=== PATIENT | male | born 1955 | race Asian ===

== ENCOUNTER 2016-05-23 13:38 | Inpatient (IN) | payer MEDICARE, OTHER ==
[2016-05-23] VITALS (14 sets, daily range): BP systolic 151–188; BP diastolic 70–80; PULSE 69–80; RESP 18–19; Ht 172.7 cm; Wt 65.8 kg
[~2016-05-23] VITALS: Ht 172.7 cm; Wt 65.8 kg
[~2016-05-23 13:38] MED LIST: AMLO-145 PO; ASPI81TA3 PO; ATOR10TA65 PO; FURO40TA4 PO; HYDR-3498 PO; INSU100I15 SQ; LEVO500T72 PO; LISI20TA11 PO; METO-448 PO; NIT4 SL; SEVE800T7 PO; SITA25TA3 PO; TICA90TA PO
--- NOTE | 2016-05-23 15:37 | HP ---
Date/Time of Note Date/Time of Note DATE: 05/23/16 TIME: 15:34 Assessment/Plan VTE Prophylaxis VTE Prophylaxis Intervention: heparin Assessment/Plan Chief Complaint/Hosp Course 1) CHF - will need HD 2) diabetes mellitus - monitor blood sugar 3) CAD - no evidence of ACS at this time - consult cardiology Problems: HPI/ROS Admit Date/Time Admit Date/Time May 23, 2016 at 14:43 Hx of Present Illness Patient with coronary artery disease, end stage renal disease, diabetes mellitus , hypertension is a transfer from [facility] for shortness of breath. Patient has had previous episodes of the same problem. PMH/Family/Social Past Medical History Medical History: congestive heart failure, coronary artery disease, diabetes, hypertension Past Surgical History Past Surgical Hx: no surgical history Social History Alcohol Use: none Smoking Status: Never smoker Exam/Review of Systems Vital Signs Vitals Vital Signs Date Time Temp Pulse Resp B/P Pulse Ox O2 Delivery O2 Flow Rate FiO2 05/23/16 14:50 Nasal Cannula 2.0 Exam Head: atraumatic, normocephalic Respiratory: diminished breath sounds Cardiovascular: regular rate and rhythm Gastrointestinal: non-tender, soft Extremities: normal pulses HELEN SHARP May 23, 2016 15:37
[2016-05-23] MEDS ORDERED: NACL 0.9% 3 ML SYG IV SCH (16:00)
[2016-05-23] MEDS ORDERED: morphine 2 MG INJ IV PRN (16:00)
[2016-05-23] MEDS ORDERED: DEXTROSE 50% 50 ML SYRINGE IV PRN ×2 (16:00)
[2016-05-23] MEDS ORDERED: ONDANSETRON 4 MG INJ IV PRN (16:00)
[2016-05-23] MEDS ORDERED: GLUCOSE GEL 15 GRAM TUBE BUCCAL PRN (16:00)
[2016-05-23] MEDS ORDERED: HYPOGLYCEMIA PROTOCOL when Glucose is <70 mg/dL or symptomatic <90 mg/dL. XX ONE (16:00)
[2016-05-23] MEDS ORDERED: Discontinue Glyburide, Glipizide, and/or Glimepiride prior to starting Insulin XX ONE (16:00)
[2016-05-23] MEDS ORDERED: HYDROCODONE/APAP (5/325) TAB PO PRN (16:00)
[2016-05-23] MEDS ORDERED: GLUCAGON 1 MG INJ IM PRN (16:00)
[2016-05-23] MEDS ORDERED: GLUCOSE GEL 15 GRAM TUBE PO PRN ×2 (16:00)
[2016-05-23] MEDS ORDERED: NITROGLYCERIN (SL) 0.4 MG TAB SL PRN (16:00)
--- NOTE | 2016-05-23 16:09 | QN ---
Documentation Comment [id number] renal consult PAOLA MOODY MD May 23, 2016 16:09
--- NOTE | 2016-05-23 17:06 | CONS ---
DATE OF ADMISSION: 05/23/2016 DATE OF CONSULTATION: 05/23/2016 NEPHROLOGY CONSULTATION HISTORY OF PRESENT ILLNESS: Lamberto Singh is a 60-year-old male who has a history of ESRD, hypertension , and diabetes mellitus. The patient only goes to dialysis center 2 times a week. The patient prev iously was discharged with diagnosis of pleural effusion, lung infiltrate, ESRD, hypertension, CAD, history of coronary artery bypass graft, history of drug-eluting stent, and history of hyperkalemia. The patient was taken to, as per patient, [facility], and the patient was transferred h [facility] for further management. Chest x-ray done shows mild cardiomegaly, right femoral catheter, right lower lung consolidation, pneumonia, small right pleural effusion fluid loculated within the minor fissure, 8 x 3.67 cm oval opacity projected over the right upper lung, loculated fluid in the basket hand weaver ior pleural space, pacemaker in the left chest. The patient had EKG done which shows atrial paced r hythm. The patient denies any fever or chills at this point. PAST MEDICAL HISTORY: ESRD, hypertension, diabetes mellitus, CAD, stent placement, pacemaker placem ent. The patient has history of anemia, history of AV fistula bleed. The patient also has a histor y of atherosclerotic heart disease. ALLERGY HISTORY: NEGATIVE. FAMILY HISTORY: Hypertension. SOCIAL HISTORY: Negative. MEDICATION HISTORY: The patient's medication history is positive for the patient is on 1. Hydrocodone. 2. Amlodipine. 3. Aspirin. 4. Lipitor. 5. Lasix. 6. Insulin. 7. Levofloxacin. 8. Lisinopril. 9. Metoprolol. 10. Nitroglycerin. 11. Renvela. 12. Januvia. 13. Brilinta. REVIEW OF SYSTEMS: HEENT: Unremarkable. RESPIRATORY: Short of breath. CARDIOVASCULAR: No chest pain, palpitation. ABDOMEN: No dyspepsia. EXTREMITIES: On and off swelling. CENTRAL NERVOUS SYSTEM: Unremarkable. PHYSICAL EXAMINATION: GENERAL: The patient is awake, alert with oxygen on. VITAL SIGNS: Pulse 67, blood pressure 118/60. HEAD: Atraumatic, normocephalic. Pupils are equal, reactive to light. NECK: Supple. LUNGS: Basilar rales, rhonchi noted. CARDIOVASCULAR: S1, S2 normal. Soft systolic murmur. Pacemaker in left chest noted. ABDOMEN: Soft, nontender. Bowel sounds present. No palpable mass or hepatosplenomegaly. No guard ing, rebound tenderness. EXTREMITIES: There is no cyanosis, clubbing. Edema positive trace. The patient has a right upper extremity AV fistula with some right upper extremity edema noted. LABORATORY DATA: Hematocrit 32.9. BUN 33, creatinine 7.63, potassium 4.4. IMPRESSION: 1. The patient has some lung infiltrate, pleural effusions. 2. The patient has a history of volume overload clinically, hypertension, ESRD, anemia, history of AV fistula in the right upper extremity, right groin Perm-A-Cath, and pacemaker in the left chest. PLAN: The patient is currently on 1. Amlodipine. 2. Aspirin. 3. Lasix. 4. Lisinopril. 5. Metoprolol. 6. Pepcid. 7. Lipitor. 8. Lantus insulin. 9. Renvela. 10. Brilinta. 11. Nitroglycerin. The patient will be dialyzed. He agrees to have dialysis today. Orders were done. Ultrasound of t he right upper extremity will be ordered since the patient has history of bleeding from the right up per extremity in the past. Thank you, Dr. Price and Dr. Grimes, for kindly asking me to see this patient in nephrology consult ation. Dictated By: PAOLA HEAD/NTS Conf#: [id number] DID#: [id number]
[2016-05-23] MEDS: INSULIN ASPART [NOVOLOG] 3 ML PEN SC SCH ×2 (17:58→21:24)
[2016-05-23] MEDS: SEVELAMER CARBONATE 0.8 GM PKT PO SCH (21:18)
[2016-05-23] MEDS: ATORVASTATIN 10 MG TAB PO SCH (21:18)
[2016-05-23] MEDS: FAMOTIDINE 20 MG INJ IV SCH (21:18)
[2016-05-23] MEDS: METOPROLOL 25 MG TAB PO SCH (21:19)
[2016-05-23] MEDS: TICAGRELOR 90 MG TABLET PO SCH (21:24)
[2016-05-23] MEDS: INSULIN GLARGINE [LANtus] 3 ML PEN SC SCH (21:24)
[2016-05-23] MEDS: HEPARIN 5,000 UNIT/0.5 ML SYG SC SCH (21:50)
[2016-05-23 23:11] LABS: CREATINE KINASE 86 IU/L (23-200)
[2016-05-23 23:34] LABS: TROPONIN-I < 0.012 ng/ml (0.00-0.12)
[2016-05-24] VITALS (20 sets, daily range): BP systolic 109–194; BP diastolic 54–88; PULSE 69–73; RESP 17–20
[2016-05-24 07:07] LABS: BASOPHIL # 0.1 10^3/ul (0.0-0.1); BASOPHILS % 1.1 % (0.0-2.0); EOSINOPHILS # 0.3 10^3/ul (0.0-0.5); EOSINOPHILS % 4.2 % (0.0-7.0); HEMATOCRIT 22.1 % (42.0-52.0); HEMOGLOBIN 7.6 g/dl (14.0-18.0); LYMPHOCYTES # 0.8 10^3/ul (0.8-2.9); LYMPHOCYTES % 9.5 % (15.0-51.0); MEAN CORPUSCULAR HEMOGLOBIN 33.1 pg (29.0-33.0); MEAN CORPUSCULAR HGB CONC 34.4 g/dl (32.0-37.0); MEAN CORPUSCULAR VOLUME 96.1 fl (82.0-101.0); MEAN PLATELET VOLUME 7.7 fl (7.4-10.4); MONOCYTE # 0.8 10^3/ul (0.3-0.9); MONOCYTES % 9.6 % (0.0-11.0); NEUTROPHIL # 6.3 10^3/ul (1.6-7.5); NEUTROPHILS % 75.6 % (39.0-77.0); PLATELET COUNT 255 10^3/UL (140-440); RED CELL DISTRIBUTION WIDTH 15.8 % (11.5-14.5); UNCORRECTED WBC 8.4 10^3/ul (4.8-10.8); WHITE BLOOD COUNT 8.4 10^3/ul (4.8-10.8)
[2016-05-24 07:16] LABS: CONDITION 1; LH ANALYZER COMMENTS 1
[2016-05-24] MEDS: INSULIN ASPART [NOVOLOG] 3 ML PEN SC SCH ×4 (07:28→21:00)
[2016-05-24 07:46] LABS: CK-MB 1.27 ng/ml (0.0-2.4)
[2016-05-24 07:48] LABS: TROPONIN-I 0.024 ng/ml (0.00-0.12)
[2016-05-24] MEDS: SEVELAMER CARBONATE 0.8 GM PKT PO SCH ×3 (08:09→21:01)
[2016-05-24] MEDS: ASPIRIN 81 MG TAB PO SCH (08:10)
[2016-05-24] MEDS: LISINOPRIL 20 MG TAB PO SCH (08:12)
[2016-05-24] MEDS: METOPROLOL 25 MG TAB PO SCH ×2 (08:12→21:01)
[2016-05-24] MEDS: AMLODIPINE 5 MG TAB PO SCH (08:12)
[2016-05-24] MEDS: FUROSEMIDE 40 MG TAB PO SCH (08:12)
[2016-05-24] MEDS: HEPARIN 5,000 UNIT/0.5 ML SYG SC SCH ×2 (08:14→21:02)
[2016-05-24] MEDS: TICAGRELOR 90 MG TABLET PO SCH ×2 (08:14→21:34)
[2016-05-24 08:53] LABS: CHOL/HDL RATIO 2.9 RATIO
[2016-05-24] MEDS ORDERED: LEVOFLOXACIN 500 MG TAB PO SCH (09:00)
[2016-05-24] MEDS ORDERED: METOPROLOL 25 MG TAB PO SCH (09:00)
[2016-05-24 09:38] LABS: ALBUMIN 3.8 g/dl (3.3-4.9); POTASSIUM 4.6 mmol/L (3.5-5.1)
[2016-05-24 09:40] LABS: BILIRUBIN,INDIRECT 0.1 mg/dl (0-1.1); BILIRUBIN,TOTAL 0.1 mg/dl (0.2-1.3); CREATININE 5.19 mg/dl (0.61-1.24)
[2016-05-24 09:41] LABS: ALBUMIN/GLOBULIN RATIO 1.08; CALCIUM 9.6 mg/dl (8.4-10.2); TOTAL PROTEIN 7.3 g/dl (6.1-8.1)
--- NOTE | 2016-05-24 11:53 | PN ---
Date/Time of Note Date/Time of Note DATE: 05/24/16 TIME: 11:53 Assessment/Plan VTE Prophylaxis VTE Prophylaxis Intervention: heparin Lines/Catheters IV Catheter Type (from Nrs): Saline Lock Assessment/Plan Chief Complaint/Hosp Course 1) CHF - will need HD 2) diabetes mellitus - monitor blood sugar 3) CAD - no evidence of ACS at this time - consult cardiology Problems: Subjective 24 Hr Interval Summary Free Text/Dictation Patient is still short of breath Exam/Review of Systems Vital Signs Vitals Vital Signs Date Time Temp Pulse Resp B/P Pulse Ox O2 Delivery O2 Flow Rate FiO2 05/24/16 11:47 97.9 10 19 155/72 96 05/24/16 08:10 Nasal Cannula 2.0 Intake and Output 05/23/16 05/23/16 05/24/16 15:00 23:00 07:00 Intake Total 400 ml 400 ml Output Total 1500 ml Balance -1100 ml 400 ml Exam Constitutional: well developed Head: atraumatic, normocephalic Neck: supple Respiratory: diminished breath sounds Cardiovascular: regular rate and rhythm Gastrointestinal: non-tender, soft Extremities: normal pulses Results Result Diagram: 05/24/16 0530 05/24/16 0530 Results 24 hrs Laboratory Tests Test 05/23/16 17:10 05/23/16 20:34 05/23/16 22:00 05/24/16 05:30 Bedside Glucose 167 204 Creatine Kinase 86 86 Creatine Kinase Index 1.7 1.5 Creatinine Kinase MB (Mass) 1.50 1.27 Troponin I < 0.012 0.024 Alanine Aminotransferase (ALT/SGPT) 35 Albumin 3.8 Albumin/Globulin Ratio 1.08 Alkaline Phosphatase 61 Anion Gap 19 H Aspartate Amino Transf (AST/SGOT) 38 Basophils # 0.1 Basophils % 1.1 Blood Morphology Comment Blood Urea Nitrogen 40 H Calcium Level 9.6 Carbon Dioxide Level 25 Chloride Level 102 Cholesterol Level 158 Cholesterol/HDL Ratio 2.9 Creatinine 5.19 H Direct Bilirubin 0.00 Eosinophils # 0.3 Eosinophils % 4.2 Globulin 3.50 H Glucose Level 90 HDL Cholesterol 54 Hematocrit 22.1 #L Hemoglobin 7.6 #L Indirect Bilirubin 0.1 LDL Cholesterol, Calculated 78 Lymphocytes # 0.8 Lymphocytes % 9.5 L Mean Corpuscular Hemoglobin 33.1 H Mean Corpuscular Hemoglobin Concent 34.4 Mean Corpuscular Volume 96.1 Mean Platelet Volume 7.7 Monocytes # 0.8 Monocytes % 9.6 Neutrophils # 6.3 Neutrophils % 75.6 Nucleated Red Blood Cells # 0.0 Nucleated Red Blood Cells % 0.0 Platelet Count 255 Potassium Level 4.6 Red Blood Count 2.30 #L Red Cell Distribution Width 15.8 #H Sodium Level 141 Total Bilirubin 0.1 L Total Protein 7.3 Triglycerides Level 131 White Blood Count 8.4 Test 05/24/16 07:13 05/24/16 07:32 05/24/16 11:50 Bedside Glucose 51 L 90 180 Medications Medications Current Medications Ondansetron HCl (Zofran Inj) 4 mg Q6H PRN IV NAUSEA AND/OR VOMITING; Start at 16:00 Morphine Sulfate (morphine) 2 mg Q4H PRN IV PAIN LEVEL 7-10; Start 05/23/16 at 16:00 Famotidine (Pepcid Iv) 10 mg Q24H IV Last administered on 05/23/16 21:18; Admin Dose 10 MG; Start 05/23/16 at 21:00 Heparin Sodium (Porcine) (Heparin (5000 Units/0.5 ml)) 5,000 unit Q12 SC Last administered on 05/24/16 08:14; Admin Dose 5,000 UNIT; Start 05/23/16 at 21:00 Amlodipine Besylate (Norvasc) 5 mg DAILY PO Last administered on 05/24/16 08: 12; Admin Dose 5 MG; Start 05/24/16 at 09:00 Aspirin (Aspirin) 81 mg DAILY PO Last administered on 05/24/16 08:10; Admin Dose 81 MG; Start 05/24/16 at 09:00 Atorvastatin Calcium (Lipitor) 10 mg QHS PO Last administered on 05/23/16 21: 18; Admin Dose 10 MG; Start 05/23/16 at 21:00 Furosemide (Lasix) 40 mg DAILY PO Last administered on 05/24/16 08:12; Admin Dose 40 MG; Start 05/24/16 at 09:00 Acetaminophen/ Hydrocodone Bitart ([place] (5/325)) 1 tab Q4H PRN PO PAIN LEVEL 1 -5; Start 05/23/16 at 16:00 Insulin Glargine (Lantus) 20 unit QHS SC Last administered on 05/23/16 21:24; Admin Dose 20 UNIT; Start 05/23/16 at 21:00 Lisinopril (Zestril) 20 mg DAILY PO Last administered on 05/24/16 08:12; Admin Dose 20 MG; Start 05/24/16 at 09:00 Nitroglycerin (Nitroglycerin (Sl Tab) 0.4 Mg) 1 tab [id number] PRN SL CHEST PAIN ; Start 05/23/16 at 16:00 Sevelamer Carbonate (Renvela) 1 gm TID PO Last administered on 05/24/16 08:09 ; Admin Dose 1 GM; Start 05/23/16 at 21:00 Ticagrelor (Brilinta) 90 mg Q12 PO Last administered on 05/24/16 08:14; Admin Dose 90 MG; Start 05/23/16 at 21:00 Miscellaneous Information 1 ea NOTE XX ; Start 05/23/16 at 16:00 Glucose (Glutose) 15 gm Q15M PRN PO DECREASED GLUCOSE; Start 05/23/16 at 16:00 Glucose (Glutose) 22.5 gm Q15M PRN PO DECREASED GLUCOSE; Start 05/23/16 at 16: 00 Dextrose (D50w Syringe) 25 ml Q15M PRN IV DECREASED GLUCOSE; Start 05/23/16 at 16:00 Dextrose (D50w Syringe) 50 ml Q15M PRN IV DECREASED GLUCOSE; Start 05/23/16 at 16:00 Glucagon (Glucagen) 1 mg Q15M PRN IM DECREASED GLUCOSE; Start 05/23/16 at 16:00 Glucose (Glutose) 15 gm Q15M PRN BUCCAL DECREASED GLUCOSE; Start 05/23/16 at 16 :00 Metoprolol Tartrate (Lopressor) 25 mg BID PO Last administered on 05/24/16 08: 12; Admin Dose 25 MG; Start 05/23/16 at 21:00 Clonidine (Catapres) 0.1 mg Q6H PRN PO ELEVATED SYSTOLIC BP Last administered on 05/24/16 10:22; Admin Dose 0.1 MG; Start 05/24/16 at 05:05 Hydralazine HCl (Apresoline) 25 mg Q6H PRN PO ELEVATED BLOOD PRESSURE Last administered on 05/24/16 09:16; Admin Dose 25 MG; Start 05/24/16 at 09:30 HELEN SHARP May 24, 2016 11:53
--- NOTE | 2016-05-24 12:04 | CONS ---
Date/Time of Note Date/Time of Note DATE: 05/24/16 TIME: 11:57 Assessment/Plan Assessment/Plan Additional Assessment/Plan 1. Acute CHF 2. H/o CAD s/p Previous stent placement 3. Hypertension 4. Hyperlpidemia 5.ESRD on HD two times a week on Plan: will paln for HD today cardiolgoy consulted pt gets HD twice a week on Consultation Date/Type/Reason Admit Date/Time May 23, 2016 at 14:43 Initial Consult Date Type of Consultation: NEPHROLOGY Referring Provider: EVA COX MD 24 HR Interval Summary Free Text/Dictation remained stable,afebrile, no complaints Exam/Review of Systems Vital Signs Vitals Vital Signs Date Time Temp Pulse Resp B/P Pulse Ox O2 Delivery O2 Flow Rate FiO2 05/24/16 11:47 97.9 10 19 155/72 96 05/24/16 08:10 Nasal Cannula 2.0 Intake and Output 05/23/16 05/23/16 05/24/16 15:00 23:00 07:00 Intake Total 400 ml 400 ml Output Total 1500 ml Balance -1100 ml 400 ml Exam Constitutional: alert Psych: no complaints Head: normocephalic Eyes: nl conjunctiva ENMT: nl external ears & nose Neck: supple Respiratory: clear to auscultation Cardiovascular: regular rate and rhythm Gastrointestinal: soft Results Result Diagram: 05/24/16 0530 05/24/16 0530 Results 24 hrs Laboratory Tests Test 05/23/16 17:10 05/23/16 20:34 05/23/16 22:00 05/24/16 05:30 Bedside Glucose 167 204 Creatine Kinase 86 86 Creatine Kinase Index 1.7 1.5 Creatinine Kinase MB (Mass) 1.50 1.27 Troponin I < 0.012 0.024 Alanine Aminotransferase (ALT/SGPT) 35 Albumin 3.8 Albumin/Globulin Ratio 1.08 Alkaline Phosphatase 61 Anion Gap 19 H Aspartate Amino Transf (AST/SGOT) 38 Basophils # 0.1 Basophils % 1.1 Blood Morphology Comment Blood Urea Nitrogen 40 H Calcium Level 9.6 Carbon Dioxide Level 25 Chloride Level 102 Cholesterol Level 158 Cholesterol/HDL Ratio 2.9 Creatinine 5.19 H Direct Bilirubin 0.00 Eosinophils # 0.3 Eosinophils % 4.2 Globulin 3.50 H Glucose Level 90 HDL Cholesterol 54 Hematocrit 22.1 #L Hemoglobin 7.6 #L Indirect Bilirubin 0.1 LDL Cholesterol, Calculated 78 Lymphocytes # 0.8 Lymphocytes % 9.5 L Mean Corpuscular Hemoglobin 33.1 H Mean Corpuscular Hemoglobin Concent 34.4 Mean Corpuscular Volume 96.1 Mean Platelet Volume 7.7 Monocytes # 0.8 Monocytes % 9.6 Neutrophils # 6.3 Neutrophils % 75.6 Nucleated Red Blood Cells # 0.0 Nucleated Red Blood Cells % 0.0 Platelet Count 255 Potassium Level 4.6 Red Blood Count 2.30 #L Red Cell Distribution Width 15.8 #H Sodium Level 141 Total Bilirubin 0.1 L Total Protein 7.3 Triglycerides Level 131 White Blood Count 8.4 Test 05/24/16 07:13 05/24/16 07:32 05/24/16 11:50 Bedside Glucose 51 L 90 180 Medications Medications Current Medications Ondansetron HCl (Zofran Inj) 4 mg Q6H PRN IV NAUSEA AND/OR VOMITING; Start at 16:00 Morphine Sulfate (morphine) 2 mg Q4H PRN IV PAIN LEVEL 7-10; Start 05/23/16 at 16:00 Famotidine (Pepcid Iv) 10 mg Q24H IV Last administered on 05/23/16 21:18; Admin Dose 10 MG; Start 05/23/16 at 21:00 Heparin Sodium (Porcine) (Heparin (5000 Units/0.5 ml)) 5,000 unit Q12 SC Last administered on 05/24/16 08:14; Admin Dose 5,000 UNIT; Start 05/23/16 at 21:00 Amlodipine Besylate (Norvasc) 5 mg DAILY PO Last administered on 05/24/16 08: 12; Admin Dose 5 MG; Start 05/24/16 at 09:00 Aspirin (Aspirin) 81 mg DAILY PO Last administered on 05/24/16 08:10; Admin Dose 81 MG; Start 05/24/16 at 09:00 Atorvastatin Calcium (Lipitor) 10 mg QHS PO Last administered on 05/23/16 21: 18; Admin Dose 10 MG; Start 05/23/16 at 21:00 Furosemide (Lasix) 40 mg DAILY PO Last administered on 05/24/16 08:12; Admin Dose 40 MG; Start 05/24/16 at 09:00 Acetaminophen/ Hydrocodone Bitart ([place] (5/325)) 1 tab Q4H PRN PO PAIN LEVEL 1 -5; Start 05/23/16 at 16:00 Insulin Glargine (Lantus) 20 unit QHS SC Last administered on 05/23/16 21:24; Admin Dose 20 UNIT; Start 05/23/16 at 21:00 Lisinopril (Zestril) 20 mg DAILY PO Last administered on 05/24/16 08:12; Admin Dose 20 MG; Start 05/24/16 at 09:00 Nitroglycerin (Nitroglycerin (Sl Tab) 0.4 Mg) 1 tab [id number] PRN SL CHEST PAIN ; Start 05/23/16 at 16:00 Sevelamer Carbonate (Renvela) 1 gm TID PO Last administered on 05/24/16 08:09 ; Admin Dose 1 GM; Start 05/23/16 at 21:00 Ticagrelor (Brilinta) 90 mg Q12 PO Last administered on 05/24/16 08:14; Admin Dose 90 MG; Start 05/23/16 at 21:00 Miscellaneous Information 1 ea NOTE XX ; Start 05/23/16 at 16:00 Glucose (Glutose) 15 gm Q15M PRN PO DECREASED GLUCOSE; Start 05/23/16 at 16:00 Glucose (Glutose) 22.5 gm Q15M PRN PO DECREASED GLUCOSE; Start 05/23/16 at 16: 00 Dextrose (D50w Syringe) 25 ml Q15M PRN IV DECREASED GLUCOSE; Start 05/23/16 at 16:00 Dextrose (D50w Syringe) 50 ml Q15M PRN IV DECREASED GLUCOSE; Start 05/23/16 at 16:00 Glucagon (Glucagen) 1 mg Q15M PRN IM DECREASED GLUCOSE; Start 05/23/16 at 16:00 Glucose (Glutose) 15 gm Q15M PRN BUCCAL DECREASED GLUCOSE; Start 05/23/16 at 16 :00 Metoprolol Tartrate (Lopressor) 25 mg BID PO Last administered on 05/24/16 08: 12; Admin Dose 25 MG; Start 05/23/16 at 21:00 Clonidine (Catapres) 0.1 mg Q6H PRN PO ELEVATED SYSTOLIC BP Last administered on 05/24/16 10:22; Admin Dose 0.1 MG; Start 05/24/16 at 05:05 Hydralazine HCl (Apresoline) 25 mg Q6H PRN PO ELEVATED BLOOD PRESSURE Last administered on 05/24/16 09:16; Admin Dose 25 MG; Start 05/24/16 at 09:30 JENELLE PAL MD May 24, 2016 12:03
--- NOTE | 2016-05-24 12:28 | RADRPT ---
Echocardiogram Report Patient Name: VIOLET BANKS Gender: Male Date: 1955 Study Date: 24-May-2016 Organ Tuner: NITZA Location: I Ref. Physician: HELEN SHARP Quality: Adequate Procedures: Transthoracic echocardiogram with complete 2D, M-Mode, and Doppler examination. Indications: Congestive Heart Failure. 2D/M Mode Doppler Measurement Value Normal Ranges Measurement Value Normal Ranges AoR Diam MM 3.0 cm AV Peak Jesse 1.5 m/sec ACS MM 1.5 cm AV Peak PG 9.5 mmHg LVIDd 2D 4.4 3.5 - 5.6 cm LVOT Peak Jesse 0.8 m/sec LVIDs 2D 3.1 2.1 - 4.1 cm LVOT Peak PG 2.6 mmHg LVPWd 2D 1.2 0.6 - 1.1 cm MV E Peak Jesse 1.2 m/sec IVSd 2D 1.2 0.6 - 1.1 cm MV A Peak Jesse 0.9 m/sec EDV 2D 89.9 cm3 MV E/A 1.4 ESV 2D 29.8 cm3 MV Decel Time 155 msec LA Dimen 2D 3.4 2.3 - 4.0 cm MV Decel Sharp 8 MV E/A 1.4 TR Peak Jesse 2.8 m/sec TR Peak PG 31.1 mmHg PV Peak Jesse 1.1 m/sec PV Peak PG 5.0 mmHg RVSP 34.1 mmHg Findings Left Ventricle: Normal left ventricular systolic function. Normal left ventricular cavity size. Mild concentric left ventricular hypertrophy. Ejection fraction is visually estimated at 65 %. Tissue Doppler/Mitral Doppler indices are within normal limits. E/E`=17. Right Ventricle: Normal right ventricular size. Normal right ventricular systolic function. Linear artifact in right ventricle suggestive of catheter, pacer lead, or ICD lead. Left Atrium: The left atrium is normal in size. Right Atrium: The right atrium is normal in size. Linear artifact in right atrium suggestive of catheter, pacer lead, or ICD lead. Atrial Septum: Normal atrial septum. Mitral Valve: Mild mitral annular calcification. Trace mitral regurgitation. Aortic Valve: No significant aortic stenosis or insufficiency. Normal trileaflet aortic valve structure. Tricuspid Valve: Normal appearance of the tricuspid valve. Estimated peak PA systolic pressure 34 mmHg. There is trace to mild tricuspid regurgitation. Pulmonic Valve: Normal pulmonic valve appearance. There is trace pulmonic regurgitation. Pericardium: Normal pericardium with no significant pericardial effusion. Bilateral pleural effusion seen. Aorta: Normal aortic root. IVC: Normal size and normal respiratory collapse consistent with normal right atrial pressure. Pulmonary Artery: Normal pulmonary artery size. Conclusions 1.Normal left ventricular systolic function. Normal left ventricular cavity size. Mild concentric left ventricular hypertrophy. Ejection fraction is visually estimated at 65 %. 2.Normal right ventricular size. Normal right ventricular systolic function. Linear artifact in right ventricle suggestive of catheter, pacer lead, or ICD lead. 3.Mild mitral annular calcification. Trace mitral regurgitation. 4.No significant aortic stenosis or insufficiency. Normal trileaflet aortic valve structure. 5.Normal appearance of the tricuspid valve. Estimated peak PA systolic pressure 34 mmHg. There is trace to mild tricuspid regurgitation. 6.Normal pericardium with no significant pericardial effusion. Electronically Signed By: Gary Palma 24-May-2016 12:27:49 -0800 Patient Name: VIOLET BANKS Study Date: 24-May-[id number]
--- NOTE | 2016-05-24 12:59 | CONS ---
DATE OF ADMISSION: 05/23/2016 DATE OF CONSULTATION: 05/24/2016 STORY OF PRESENT ILLNESS: The patient is a 60-year-old gentleman who was transferred from [facility] for higher level of care. The patient complains of a dry cough and chest pain associat ed with shortness of breath. Denies any dizziness, syncope or palpitations. Denies nausea or vomiting. Denies fever, chills, or rigors. PAST MEDICAL HISTORY: 1. Hypertension. 2. Diabetes mellitus. 3. Coronary artery disease, status post bypass surgery, status post stenting. 4. End-stage renal disease, on hemodialysis Thursday, Thursday, Thursday. 5. Dyslipidemia. SOCIAL HISTORY: No smoking, alcohol or recreational drugs. PAST SURGICAL HISTORY: Significant for: 1. Bypass surgery. 2. AV fistula. 3. Status post pacemaker implantation. ALLERGIES: Negative. CURRENT MEDICATIONS: 1. Lopressor. 2. Norvasc. 3. Aspirin. 4. Lasix. 5. Lisinopril. 6. Insulin. 7. Heparin. 8. Brilinta. 9. Famotidine. 10. Lipitor. 11. Sevelamer carbonate. REVIEW OF SYSTEMS: Unremarkable, except for that mentioned in the HPI. PHYSICAL EXAMINATION: VITAL SIGNS: Temperature is 97.1, heart rate of 70, blood pressure 187/82 mmHg, breathing at 17 and saturating at 96%. GENERAL: Patient is awake, alert and oriented, in no apparent distress. NECK: No JVD or carotid bruit. CARDIOVASCULAR: Regular rate and rhythm. No murmur, rub or gallop. CHEST: Clear to auscultation. ABDOMEN: Soft. Bowel sounds are present. There is no organomegaly. EXTREMITIES: No pedal edema. Pedal pulses are felt bilaterally. DIAGNOSTIC DATA: Review of a 12-lead EKG shows normal sinus rhythm with a ventricular rate of 72 be ats per minute, with normal PA, normal QRS and normal QT intervals, with no acute ST-T wave changes. LABORATORY DATA: Troponin x2 is negative. Sodium 149, potassium 4.6, chloride 102, CO2 25, BUN 40, creatinine 5.19, total cholesterol 158, tri glycerides 131, LDL 78, HDL 54. ASSESSMENT AND PLAN: A 60-year-old gentleman with: 1. Coronary artery disease, status post bypass surgery, status post stenting. 2. Diabetes. 3. Hypertension. 4. Dyslipidemia. 5. End-stage renal disease, on hemodialysis. 6. Status post permanent pacemaker implantation, with: 7. Atypical chest pain associated with shortness of breath, which is most likely due to volume over load and pneumonia, in addition to uncontrolled hypertension. RECOMMENDATIONS: 1. Increase Metoprolol to 100 mg b.i.d. 2. Increase Norvasc to 10 mg daily. 3. Increase lisinopril to 40 mg daily. 4. Hydralazine 10 mg IV q.4 p.r.n. systolic blood pressure more than 160 mmHg. 5. Echocardiogram to assess for structural heart disease and rule out for pulmonary hypertension. 6. Trend troponins, BMP, chest x-ray. 7. Recommend hemodialysis as soon as possible. Dictated By: PHILL PAGE MD SR/NTS Conf#: [id number] DID#: [id number]
[2016-05-24 13:52] LABS: CREATINE KINASE 71 IU/L (23-200)
[2016-05-24 14:02] LABS: CK-MB 1.21 ng/ml (0.0-2.4)
[2016-05-24 14:05] LABS: TROPONIN-I < 0.012 ng/ml (0.00-0.12)
[2016-05-24] MEDS: FAMOTIDINE 20 MG INJ IV SCH (21:00)
[2016-05-24] MEDS: ATORVASTATIN 10 MG TAB PO SCH (21:01)
[2016-05-24] MEDS: INSULIN GLARGINE [LANtus] 3 ML PEN SC SCH (21:02)
[2016-05-25] VITALS (13 sets, daily range): BP systolic 139–169; BP diastolic 65–78; PULSE 60–73; RESP 17–20
--- NOTE | 2016-05-25 00:03 | RADRPT ---
PROCEDURE: XR Chest. CLINICAL INDICATION: CHF TECHNIQUE: Single AP portable chest COMPARISON: 05/02/2015 FINDINGS: The cardiomediastinal silhouette is within normal limits. Sternotomy wires and dual chamber left love st pacemaker in place. Fluid within the major fissure on the right with bilateral pleural effusions larger on the right and trace on the left. Mild vascular prominence. No pneumothorax. . The osse ous structures and soft tissues are unremarkable. IMPRESSION: Vascular congestion and bilateral pleural effusions greater on the right. Slight interval increase compared to previous examination. RPTAT:AAJJ Janeth Jones Physician Date Time Electronically viewed and signed by Physician Abbey on 05/25/2016 00:03 GUIDO/
[2016-05-25] MEDS: INSULIN ASPART [NOVOLOG] 3 ML PEN SC SCH ×4 (07:23→21:31)
[2016-05-25] MEDS: METOPROLOL 25 MG TAB PO SCH ×2 (08:55→21:28)
[2016-05-25] MEDS: ASPIRIN 81 MG TAB PO SCH (08:55)
[2016-05-25] MEDS: AMLODIPINE 5 MG TAB PO SCH (08:56)
[2016-05-25] MEDS: LISINOPRIL 20 MG TAB PO SCH (08:56)
[2016-05-25] MEDS: SEVELAMER CARBONATE 0.8 GM PKT PO SCH ×3 (08:56→21:32)
[2016-05-25] MEDS: FUROSEMIDE 40 MG TAB PO SCH (08:56)
[2016-05-25] MEDS: HEPARIN 5,000 UNIT/0.5 ML SYG SC SCH ×2 (08:58→21:30)
[2016-05-25] MEDS: TICAGRELOR 90 MG TABLET PO SCH ×2 (08:59→21:30)
--- NOTE | 2016-05-25 11:34 | CONS ---
Date/Time of Note Date/Time of Note DATE: 05/25/16 TIME: 11:31 Assessment/Plan Assessment/Plan Additional Assessment/Plan 1. Acute CHF 2. H/o CAD s/p Previous stent placement 3. Hypertension 4. Hyperlpidemia 5.ESRD on HD two times a week on Plan: cardiolgoy consulted pt gets HD twice a week on - we will order his HD for tomorrow due to CXR showing congestion, pleural Effusion repeat CXR 2 views ordered for today Consultation Date/Type/Reason Admit Date/Time May 23, 2016 at 14:43 Type of Consultation: NEPHROLOGY Referring Provider: EVA COX MD 24 HR Interval Summary Free Text/Dictation CXR showed congestion and pleural effusion Exam/Review of Systems Vital Signs Vitals Vital Signs Date Time Temp Pulse Resp B/P Pulse Ox O2 Delivery O2 Flow Rate FiO2 05/25/16 11:20 98.6 70 20 164/76 94 05/25/16 04:00 Room Air 05/24/16 08:10 2.0 Intake and Output 05/24/16 05/24/16 05/25/16 15:00 23:00 07:00 Intake Total 400 ml 800 ml 500 ml Output Total 800 ml 1100 ml 300 ml Balance -400 ml -300 ml 200 ml Exam Constitutional: alert Psych: no complaints Head: normocephalic Eyes: nl conjunctiva ENMT: nl external ears & nose Neck: supple Respiratory: decreased BS on right side Cardiovascular: regular rate and rhythm Gastrointestinal: soft Results Result Diagram: 05/24/16 0530 05/24/16 0530 Results 24 hrs Laboratory Tests Test 05/24/16 11:50 05/24/16 13:29 05/24/16 16:46 05/24/16 20:57 Bedside Glucose 180 129 141 Creatine Kinase 71 Creatine Kinase Index 1.7 Creatinine Kinase MB (Mass) 1.21 Troponin I < 0.012 Test 05/25/16 03:10 05/25/16 03:32 05/25/16 03:52 05/25/16 07:15 Bedside Glucose 48 *L 79 126 117 Medications Medications Current Medications Ondansetron HCl (Zofran Inj) 4 mg Q6H PRN IV NAUSEA AND/OR VOMITING; Start at 16:00 Morphine Sulfate (morphine) 2 mg Q4H PRN IV PAIN LEVEL 7-10; Start 05/23/16 at 16:00 Famotidine (Pepcid Iv) 10 mg Q24H IV Last administered on 05/24/16 21:00; Admin Dose 10 MG; Start 05/23/16 at 21:00 Heparin Sodium (Porcine) (Heparin (5000 Units/0.5 ml)) 5,000 unit Q12 SC Last administered on 05/25/16 08:58; Admin Dose 5,000 UNIT; Start 05/23/16 at 21:00 Amlodipine Besylate (Norvasc) 5 mg DAILY PO Last administered on 05/25/16 08: 56; Admin Dose 5 MG; Start 05/24/16 at 09:00 Aspirin (Aspirin) 81 mg DAILY PO Last administered on 05/25/16 08:55; Admin Dose 81 MG; Start 05/24/16 at 09:00 Atorvastatin Calcium (Lipitor) 10 mg QHS PO Last administered on 05/24/16 21: 01; Admin Dose 10 MG; Start 05/23/16 at 21:00 Furosemide (Lasix) 40 mg DAILY PO Last administered on 05/25/16 08:56; Admin Dose 40 MG; Start 05/24/16 at 09:00 Acetaminophen/ Hydrocodone Bitart ([place] (5/325)) 1 tab Q4H PRN PO PAIN LEVEL 1 -5; Start 05/23/16 at 16:00 Insulin Glargine (Lantus) 20 unit QHS SC Last administered on 05/24/16 21:02; Admin Dose 20 UNIT; Start 05/23/16 at 21:00 Lisinopril (Zestril) 20 mg DAILY PO Last administered on 05/25/16 08:56; Admin Dose 20 MG; Start 05/24/16 at 09:00 Nitroglycerin (Nitroglycerin (Sl Tab) 0.4 Mg) 1 tab [id number] PRN SL CHEST PAIN ; Start 05/23/16 at 16:00 Sevelamer Carbonate (Renvela) 1 gm TID PO Last administered on 05/25/16 08:56 ; Admin Dose 1 GM; Start 05/23/16 at 21:00 Ticagrelor (Brilinta) 90 mg Q12 PO Last administered on 05/25/16 08:59; Admin Dose 90 MG; Start 05/23/16 at 21:00 Miscellaneous Information 1 ea NOTE XX ; Start 05/23/16 at 16:00 Glucose (Glutose) 15 gm Q15M PRN PO DECREASED GLUCOSE; Start 05/23/16 at 16:00 Glucose (Glutose) 22.5 gm Q15M PRN PO DECREASED GLUCOSE; Start 05/23/16 at 16: 00 Dextrose (D50w Syringe) 25 ml Q15M PRN IV DECREASED GLUCOSE; Start 05/23/16 at 16:00 Dextrose (D50w Syringe) 50 ml Q15M PRN IV DECREASED GLUCOSE; Start 05/23/16 at 16:00 Glucagon (Glucagen) 1 mg Q15M PRN IM DECREASED GLUCOSE; Start 05/23/16 at 16:00 Glucose (Glutose) 15 gm Q15M PRN BUCCAL DECREASED GLUCOSE; Start 05/23/16 at 16 :00 Metoprolol Tartrate (Lopressor) 25 mg BID PO Last administered on 05/25/16 08: 55; Admin Dose 25 MG; Start 05/23/16 at 21:00 Clonidine (Catapres) 0.1 mg Q6H PRN PO ELEVATED SYSTOLIC BP Last administered on 05/24/16 10:22; Admin Dose 0.1 MG; Start 05/24/16 at 05:05 Hydralazine HCl (Apresoline) 25 mg Q6H PRN PO ELEVATED BLOOD PRESSURE Last administered on 05/24/16 09:16; Admin Dose 25 MG; Start 05/24/16 at 09:30 JENELLE PAL MD May 25, 2016 11:33
--- NOTE | 2016-05-25 12:32 | PN ---
Date/Time of Note Date/Time of Note DATE: 05/25/16 TIME: 12:31 Assessment/Plan VTE Prophylaxis VTE Prophylaxis Intervention: LMWH Lines/Catheters IV Catheter Type (from Nrs): Saline Lock Urinary Cath still in place: No Assessment/Plan Chief Complaint/Hosp Course 1) CHF - will need HD 2) diabetes mellitus - monitor blood sugar 3) CAD - no evidence of ACS at this time - consult cardiology Problems: Subjective 24 Hr Interval Summary Free Text/Dictation Patient still feel short of breath and easy fatiguability Exam/Review of Systems Vital Signs Vitals Vital Signs Date Time Temp Pulse Resp B/P Pulse Ox O2 Delivery O2 Flow Rate FiO2 05/25/16 12:05 69 05/25/16 11:20 98.6 20 164/76 94 05/25/16 04:00 Room Air 05/24/16 08:10 2.0 Intake and Output 05/24/16 05/24/16 05/25/16 15:00 23:00 07:00 Intake Total 400 ml 800 ml 500 ml Output Total 800 ml 1100 ml 300 ml Balance -400 ml -300 ml 200 ml Exam Constitutional: well developed Head: atraumatic, normocephalic Neck: supple Respiratory: diminished breath sounds Cardiovascular: regular rate and rhythm Gastrointestinal: non-tender, soft Extremities: normal pulses Results Result Diagram: 05/24/16 0530 05/24/16 0530 Results 24 hrs Laboratory Tests Test 05/24/16 13:29 05/24/16 16:46 05/24/16 20:57 05/25/16 03:10 Creatine Kinase 71 Creatine Kinase Index 1.7 Creatinine Kinase MB (Mass) 1.21 Troponin I < 0.012 Bedside Glucose 129 141 48 *L Test 05/25/16 03:32 05/25/16 03:52 05/25/16 07:15 Bedside Glucose 79 126 117 Medications Medications Current Medications Ondansetron HCl (Zofran Inj) 4 mg Q6H PRN IV NAUSEA AND/OR VOMITING; Start at 16:00 Morphine Sulfate (morphine) 2 mg Q4H PRN IV PAIN LEVEL 7-10; Start 05/23/16 at 16:00 Famotidine (Pepcid Iv) 10 mg Q24H IV Last administered on 05/24/16t 21:00; Admin Dose 10 MG; Start 05/23/16 at 21:00 Heparin Sodium (Porcine) (Heparin (5000 Units/0.5 ml)) 5,000 unit Q12 SC Last administered on 05/25/16 08:58; Admin Dose 5,000 UNIT; Start 05/23/16 at 21:00 Amlodipine Besylate (Norvasc) 5 mg DAILY PO Last administered on 05/25/16 08: 56; Admin Dose 5 MG; Start 05/24/16 at 09:00 Aspirin (Aspirin) 81 mg DAILY PO Last administered on 05/25/16 08:55; Admin Dose 81 MG; Start 05/24/16 at 09:00 Atorvastatin Calcium (Lipitor) 10 mg QHS PO Last administered on 05/24/16 21: 01; Admin Dose 10 MG; Start 05/23/16 at 21:00 Furosemide (Lasix) 40 mg DAILY PO Last administered on 05/25/16 08:56; Admin Dose 40 MG; Start 05/24/16 at 09:00 Acetaminophen/ Hydrocodone Bitart ([place] (5/325)) 1 tab Q4H PRN PO PAIN LEVEL 1 -5; Start 05/23/16 at 16:00 Insulin Glargine (Lantus) 20 unit QHS SC Last administered on 05/24/16 21:02; Admin Dose 20 UNIT; Start 05/23/16 at 21:00 Lisinopril (Zestril) 20 mg DAILY PO Last administered on 05/25/16 08:56; Admin Dose 20 MG; Start 05/24/16 at 09:00 Nitroglycerin (Nitroglycerin (Sl Tab) 0.4 Mg) 1 tab [id number] PRN SL CHEST PAIN ; Start 05/23/16 at 16:00 Sevelamer Carbonate (Renvela) 1 gm TID PO Last administered on 05/25/16 08:56 ; Admin Dose 1 GM; Start 05/23/16 at 21:00 Ticagrelor (Brilinta) 90 mg Q12 PO Last administered on 05/25/16 08:59; Admin Dose 90 MG; Start 05/23/16 at 21:00 Miscellaneous Information 1 ea NOTE XX ; Start 05/23/16 at 16:00 Glucose (Glutose) 15 gm Q15M PRN PO DECREASED GLUCOSE; Start 05/23/16 at 16:00 Glucose (Glutose) 22.5 gm Q15M PRN PO DECREASED GLUCOSE; Start 05/23/16 at 16: 00 Dextrose (D50w Syringe) 25 ml Q15M PRN IV DECREASED GLUCOSE; Start 05/23/16 at 16:00 Dextrose (D50w Syringe) 50 ml Q15M PRN IV DECREASED GLUCOSE; Start 05/23/16 at 16:00 Glucagon (Glucagen) 1 mg Q15M PRN IM DECREASED GLUCOSE; Start 05/23/16 at 16:00 Glucose (Glutose) 15 gm Q15M PRN BUCCAL DECREASED GLUCOSE; Start 05/23/16 at 16 :00 Metoprolol Tartrate (Lopressor) 25 mg BID PO Last administered on 05/25/16 08: 55; Admin Dose 25 MG; Start 05/23/16 at 21:00 Clonidine (Catapres) 0.1 mg Q6H PRN PO ELEVATED SYSTOLIC BP Last administered on 05/24/16 10:22; Admin Dose 0.1 MG; Start 05/24/16 at 05:05 Hydralazine HCl (Apresoline) 25 mg Q6H PRN PO ELEVATED BLOOD PRESSURE Last administered on 05/24/16 09:16; Admin Dose 25 MG; Start 05/24/16 at 09:30 HELEN SHARP May 25, 2016 12:32
--- NOTE | 2016-05-25 13:48 | CONS ---
Date/Time of Note Date/Time of Note DATE: 05/25/16 TIME: 13:45 Assessment/Plan Assessment/Plan Additional Assessment/Plan ASSESSMENT AND PLAN: A 60-year-old gentleman with: 1. Coronary artery disease, status post bypass surgery, status post stenting. 2. Diabetes. 3. Hypertension. 4. Dyslipidemia. 5. End-stage renal disease, on hemodialysis. 6. Status post permanent pacemaker implantation Atypical chest pain associated with shortness of breath, which is most likely due to volume overload and pneumonia, in addition to uncontrolled hypertension. Echo shows preserved systolic function and no pericardial disease RECOMMENDATIONS: 1. Continue Metoprolol to 100 mg b.i.d. 2. Continue Norvasc to 10 mg daily. 3. Continue lisinopril to 40 mg daily. 4. Hydralazine 10 mg IV q.4 p.r.n. systolic blood pressure more than 160 mmHg. 5. Recommend hemodialysis 6. Chest Ultrasound with thoracentesis Consultation Date/Type/Reason Admit Date/Time May 23, 2016 at 14:43 Initial Consult Date Type of Consultation: NEPHROLOGY Referring Provider: EVA COX MD Exam/Review of Systems Vital Signs Vitals Vital Signs Date Time Temp Pulse Resp B/P Pulse Ox O2 Delivery O2 Flow Rate FiO2 05/25/16 12:05 69 05/25/16 11:20 98.6 20 164/76 94 05/25/16 04:00 Room Air 05/24/16 08:10 2.0 Intake and Output 05/24/16 05/24/16 05/25/16 15:00 23:00 07:00 Intake Total 400 ml 800 ml 500 ml Output Total 800 ml 1100 ml 300 ml Balance -400 ml -300 ml 200 ml Exam Constitutional: alert, oriented Head: atraumatic, normocephalic Respiratory: diminished breath sounds Cardiovascular: regular rate and rhythm Gastrointestinal: nl liver, spleen, non-tender, soft Extremities: normal pulses Results Result Diagram: 05/24/16 0530 05/24/16 0530 Results 24 hrs Laboratory Tests Test 05/24/16 16:46 05/24/16 20:57 05/25/16 03:10 05/25/16 03:32 Bedside Glucose 129 141 48 *L 79 Test 05/25/16 03:52 05/25/16 07:15 05/25/16 12:15 Bedside Glucose 126 117 109 Medications Medications Current Medications Ondansetron HCl (Zofran Inj) 4 mg Q6H PRN IV NAUSEA AND/OR VOMITING; Start at 16:00 Morphine Sulfate (morphine) 2 mg Q4H PRN IV PAIN LEVEL 7-10; Start 05/23/16 at 16:00 Famotidine (Pepcid Iv) 10 mg Q24H IV Last administered on 05/24/16 21:00; Admin Dose 10 MG; Start 05/23/16 at 21:00 Heparin Sodium (Porcine) (Heparin (5000 Units/0.5 ml)) 5,000 unit Q12 SC Last administered on 05/25/16 08:58; Admin Dose 5,000 UNIT; Start 05/23/16 at 21:00 Amlodipine Besylate (Norvasc) 5 mg DAILY PO Last administered on 05/25/16 08: 56; Admin Dose 5 MG; Start 05/24/16 at 09:00 Aspirin (Aspirin) 81 mg DAILY PO Last administered on 05/25/16 08:55; Admin Dose 81 MG; Start 05/24/16 at 09:00 Atorvastatin Calcium (Lipitor) 10 mg QHS PO Last administered on 05/24/16 21: 01; Admin Dose 10 MG; Start 05/23/16 at 21:00 Furosemide (Lasix) 40 mg DAILY PO Last administered on 05/25/16 08:56; Admin Dose 40 MG; Start 05/24/16 at 09:00 Acetaminophen/ Hydrocodone Bitart ([place] (5/325)) 1 tab Q4H PRN PO PAIN LEVEL 1 -5; Start 05/23/16 at 16:00 Insulin Glargine (Lantus) 20 unit QHS SC Last administered on 05/24/16 21:02; Admin Dose 20 UNIT; Start 05/23/16 at 21:00 Lisinopril (Zestril) 20 mg DAILY PO Last administered on 05/25/16 08:56; Admin Dose 20 MG; Start 05/24/16 at 09:00 Nitroglycerin (Nitroglycerin (Sl Tab) 0.4 Mg) 1 tab [id number] PRN SL CHEST PAIN ; Start 05/23/16 at 16:00 Sevelamer Carbonate (Renvela) 1 gm TID PO Last administered on 05/25/16 12:51 ; Admin Dose 1 GM; Start 05/23/16 at 21:00 Ticagrelor (Brilinta) 90 mg Q12 PO Last administered on 05/25/16 08:59; Admin Dose 90 MG; Start 05/23/16 at 21:00 Miscellaneous Information 1 ea NOTE XX ; Start 05/23/16 at 16:00 Glucose (Glutose) 15 gm Q15M PRN PO DECREASED GLUCOSE; Start 05/23/16 at 16:00 Glucose (Glutose) 22.5 gm Q15M PRN PO DECREASED GLUCOSE; Start 05/23/16 at 16: 00 Dextrose (D50w Syringe) 25 ml Q15M PRN IV DECREASED GLUCOSE; Start 05/23/16 at 16:00 Dextrose (D50w Syringe) 50 ml Q15M PRN IV DECREASED GLUCOSE; Start 05/23/16 at 16:00 Glucagon (Glucagen) 1 mg Q15M PRN IM DECREASED GLUCOSE; Start 05/23/16 at 16:00 Glucose (Glutose) 15 gm Q15M PRN BUCCAL DECREASED GLUCOSE; Start 05/23/16 at 16 :00 Metoprolol Tartrate (Lopressor) 25 mg BID PO Last administered on 05/25/16 08: 55; Admin Dose 25 MG; Start 05/23/16 at 21:00 Clonidine (Catapres) 0.1 mg Q6H PRN PO ELEVATED SYSTOLIC BP Last administered on 05/25/16 12:52; Admin Dose 0.1 MG; Start 05/24/16 at 05:05 Hydralazine HCl (Apresoline) 25 mg Q6H PRN PO ELEVATED BLOOD PRESSURE Last administered on 05/24/16 09:16; Admin Dose 25 MG; Start 05/24/16 at 09:30 PHILL PAGE M.D. May 25, 2016 13:48
[2016-05-25 15:30] LABS: INR 0.91; PARTIAL THROMBOPLASTIN TIME 28.2 Sec (25.0-35.0); PROTIME 12.3 Sec (12.2-14.2); THROMBIN TIME 14.4 SEC (13.8-19.1)
[2016-05-25] MEDS ORDERED: LIDOCAINE 1% (MPF) 5 ML VIAL ONE (16:22)
--- NOTE | 2016-05-25 16:56 | RADRPT ---
PROCEDURE: Ultrasound guided thoracentesis CLINICAL INDICATION: Pleural effusion TECHNIQUE: Risks benefits and alternatives of the procedure were explained to the patient. Inform ed written consent was obtained. Preliminary field technical support consultant ultrasound of the right chest was performed. Fl uid was identified. The overlying skin of the right posterior chest was prepped and draped in the u sual sterile fashion. Under ultrasound guidance, a skin a 5-[place] Y[place]h catheter was introduced int o the right pleural cavity. 650 cc of clear yellow fluid was obtained without difficulty. The pat ient tolerated procedure well without median complication. COMPARISON: 05/02/2015 FINDINGS: Approximately 650 cc of clear yellow fluid was obtained. The fluid is not sent to the laboratory fo r further evaluation. IMPRESSION: 1. Successful ultrasound-guided thoracentesis. RPTAT: QQ .Hipolito Suarez MD, MD Date Time Electronically viewed and signed by .Hipolito Suarez MD, on 05/25/2016 16:56 .d/
--- NOTE | 2016-05-25 16:58 | RADRPT ---
PROCEDURE: XR Chest. CLINICAL INDICATION: Chest pain TECHNIQUE: Single frontal chest x-ray. COMPARISON: 05/24/2016 FINDINGS: The right-sided pleural effusion has decreased in size when compared to the prior exam. There is pe rsistent oval-shaped opacity in the mid lung, which may be fluid loculated in the horizontal fissure . Small left pleural effusion likely remains. No evidence for pneumothorax. Evidence of prior CABG is again identified. The left-sided pacemaker is unchanged. The cardiac silhouette is not enlarge d. The aortic arch is calcified. The osseous structures are unchanged. IMPRESSION: 1. Decreased right pleural effusion without evidence of pneumothorax. 2. The remainder of the exam is unchanged. RPTAT: QQ .Hipolito Suarez MD, Date Time Electronically viewed and signed by .Hipolito Suarez MD, on 05/25/2016 16:58 .d/
[2016-05-25] MEDS: FAMOTIDINE 20 MG INJ IV SCH (21:25)
[2016-05-25] MEDS: ATORVASTATIN 10 MG TAB PO SCH (21:28)
[2016-05-25] MEDS: INSULIN GLARGINE [LANtus] 3 ML PEN SC SCH (21:32)
[2016-05-26] VITALS (17 sets, daily range): BP systolic 133–186; BP diastolic 61–86; PULSE 69–77; RESP 18–20
[2016-05-26] MEDS: INSULIN ASPART [NOVOLOG] 3 ML PEN SC SCH ×4 (08:00→22:42)
[2016-05-26 08:02] LABS: INR 0.93; PROTIME 12.5 Sec (12.2-14.2)
[2016-05-26 08:03] LABS: PARTIAL THROMBOPLASTIN TIME 33.9 Sec (25.0-35.0)
[2016-05-26 08:04] LABS: POTASSIUM 3.9 mmol/L (3.5-5.1)
[2016-05-26 08:07] LABS: CREATININE 6.24 mg/dl (0.61-1.24)
[2016-05-26 08:08] LABS: CALCIUM 9.7 mg/dl (8.4-10.2)
[2016-05-26 08:13] LABS: BASOPHIL # 0.1 10^3/ul (0.0-0.1); BASOPHILS % 0.6 % (0.0-2.0); EOSINOPHILS # 0.5 10^3/ul (0.0-0.5); EOSINOPHILS % 4.5 % (0.0-7.0); HEMOGLOBIN 7.9 g/dl (14.0-18.0); LYMPHOCYTES % 19.8 % (15.0-51.0); MEAN CORPUSCULAR HEMOGLOBIN 33.5 pg (29.0-33.0); MEAN CORPUSCULAR HGB CONC 34.5 g/dl (32.0-37.0); MEAN PLATELET VOLUME 7.7 fl (7.4-10.4); MONOCYTE # 1.2 10^3/ul (0.3-0.9); MONOCYTES % 11.8 % (0.0-11.0); NEUTROPHIL # 6.5 10^3/ul (1.6-7.5); NEUTROPHILS % 63.3 % (39.0-77.0); PLATELET COUNT 249 10^3/UL (140-440); RED BLOOD COUNT 2.37 10^6/ul (4.70-6.10); RED CELL DISTRIBUTION WIDTH 15.7 % (11.5-14.5); UNCORRECTED WBC 10.3 10^3/ul (4.8-10.8); WHITE BLOOD COUNT 10.3 10^3/ul (4.8-10.8)
[2016-05-26 08:28] LABS: CONDITION 1; LH ANALYZER COMMENTS 1
[2016-05-26] MEDS: SEVELAMER CARBONATE 0.8 GM PKT PO SCH ×3 (08:42→22:38)
[2016-05-26] MEDS: LISINOPRIL 20 MG TAB PO SCH ×2 (10:59→22:39)
[2016-05-26] MEDS: ASPIRIN 81 MG TAB PO SCH (11:00)
[2016-05-26] MEDS: METOPROLOL 25 MG TAB PO SCH ×2 (11:00→22:39)
[2016-05-26] MEDS: FUROSEMIDE 40 MG TAB PO SCH (11:00)
[2016-05-26] MEDS: AMLODIPINE 5 MG TAB PO SCH (11:00)
[2016-05-26] MEDS: TICAGRELOR 90 MG TABLET PO SCH ×2 (11:02→22:40)
[2016-05-26] MEDS: HEPARIN 5,000 UNIT/0.5 ML SYG SC SCH ×2 (11:03→22:41)
--- NOTE | 2016-05-26 13:01 | CONS ---
Date/Time of Note Date/Time of Note DATE: 05/26/16 TIME: 12:56 Assessment/Plan Assessment/Plan Chief Complaint/Hosp Course Imp: 1.CHF-diastolic acute on chronic by echo this admit-EF 65% 2.HTN 3.H/O PTCA/stent to LAD/LMN 2014 4. H/O CABG 5.ESRD on HD 6. Pleural effusion s/p thoracentesis 7.Dyslipidemia 8.Chest pain-negative troponin's x 3 since admit Recc: -Tele -Continue BB/CCB -Increase zestril to improve SBP -HD for volume removal -Continue asa/brilinta -Lexiscan strtess test today -Continue statin Problems: Consultation Date/Type/Reason Admit Date/Time May 23, 2016 at 14:43 Initial Consult Date 05/24/2016 Type of Consultation: Cardiology Reason for Consultation sob/chest pain Referring Provider: EVA COX MD Exam/Review of Systems Vital Signs Vitals Vital Signs Date Time Temp Pulse Resp B/P Pulse Ox O2 Delivery O2 Flow Rate FiO2 05/26/16 12:24 72 05/26/16 11:49 98.9 20 164/74 94 05/26/16 04:00 Room Air 05/24/16 08:10 2.0 Intake and Output 05/25/16 05/25/16 05/26/16 15:00 23:00 07:00 Intake Total 950 ml 700 ml Output Total 650 ml Balance 300 ml 700 ml Exam Review of Systems: CONSTITUTIONAL: No fevers, chills. PULMONARY: mild sob CARDIOVASCULAR: intermittent chest pain GASTROINTESTINAL: No nausea/vomiting. GENITOURINARY: No hematuria/dysuria. MUSCULOSKELETAL: No myagias/arthalgias. PSYCHIATRIC: The patient denies depression. NEUROLOGIC: No weakness Constitutional: alert, oriented Psych: no complaints Head: normocephalic Neck: jvd (9-10 cm water), supple Respiratory: diminished breath sounds (at bases/B) Cardiovascular: regular rate and rhythm Gastrointestinal: non-tender, soft Musculoskeletal: muscle tone Extremities: edema (trace/B) Neurological: other (No focal deficits) Results Result Diagram: 05/26/16 0605 05/26/16 0605 Results 24 hrs Laboratory Tests Test 05/25/16 14:30 05/25/16 17:12 05/25/16 21:22 05/26/16 01:37 Activated Partial Thromboplast Time 28.2 INR International Normalized Ratio 0.91 Platelet Count 229 Prothrombin Time 12.3 Prothrombin Time Ratio 1.0 Thrombin Time 14.4 Bedside Glucose 164 248 H 84 Test 05/26/16 06:05 05/26/16 08:36 Activated Partial Thromboplast Time 33.9 Anion Gap 16 Basophils # 0.1 Basophils % 0.6 Blood Morphology Comment Blood Urea Nitrogen 46 H Calcium Level 9.7 Carbon Dioxide Level 29 Chloride Level 99 Creatinine 6.24 H Eosinophils # 0.5 Eosinophils % 4.5 Glucose Level 49 *L Hematocrit 23.0 L Hemoglobin 7.9 L INR International Normalized Ratio 0.93 Lymphocytes # 2.0 Lymphocytes % 19.8 Mean Corpuscular Hemoglobin 33.5 H Mean Corpuscular Hemoglobin Concent 34.5 Mean Corpuscular Volume 97.0 Mean Platelet Volume 7.7 Monocytes # 1.2 H Monocytes % 11.8 H Neutrophils # 6.5 Neutrophils % 63.3 Nucleated Red Blood Cells # 0.0 Nucleated Red Blood Cells % 0.0 Platelet Count 249 Potassium Level 3.9 Prothrombin Time 12.5 Prothrombin Time Ratio 1.0 Red Blood Count 2.37 L Red Cell Distribution Width 15.7 H Sodium Level 140 White Blood Count 10.3 # Bedside Glucose 71 Medications Medications Current Medications Ondansetron HCl (Zofran Inj) 4 mg Q6H PRN IV NAUSEA AND/OR VOMITING; Start at 16:00 Morphine Sulfate (morphine) 2 mg Q4H PRN IV PAIN LEVEL 7-10; Start 05/23/16 at 16:00 Famotidine (Pepcid Iv) 10 mg Q24H IV Last administered on 05/25/16 21:25; Admin Dose 10 MG; Start 05/23/16 at 21:00 Heparin Sodium (Porcine) (Heparin (5000 Units/0.5 ml)) 5,000 unit Q12 SC Last administered on 05/26/16 11:03; Admin Dose 5,000 UNIT; Start 05/23/16 at 21:00 Amlodipine Besylate (Norvasc) 5 mg DAILY PO Last administered on 05/26/16 11: 00; Admin Dose 5 MG; Start 05/24/16 at 09:00 Aspirin (Aspirin) 81 mg DAILY PO Last administered on 05/26/16 11:00; Admin Dose 81 MG; Start 05/24/16 at 09:00 Atorvastatin Calcium (Lipitor) 10 mg QHS PO Last administered on 05/25/16 21: 28; Admin Dose 10 MG; Start 05/23/16 at 21:00 Furosemide (Lasix) 40 mg DAILY PO Last administered on 05/26/16 11:00; Admin Dose 40 MG; Start 05/24/16 at 09:00 Acetaminophen/ Hydrocodone Bitart ([place] (5/325)) 1 tab Q4H PRN PO PAIN LEVEL 1 -5; Start 05/23/16 at 16:00 Insulin Glargine (Lantus) 20 unit QHS SC Last administered on 05/25/16 21:32; Admin Dose 20 UNIT; Start 05/23/16 at 21:00 Lisinopril (Zestril) 20 mg DAILY PO Last administered on 05/26/16 10:59; Admin Dose 20 MG; Start 05/24/16 at 09:00 Nitroglycerin (Nitroglycerin (Sl Tab) 0.4 Mg) 1 tab [id number] PRN SL CHEST PAIN ; Start 05/23/16 at 16:00 Sevelamer Carbonate (Renvela) 1 gm TID PO Last administered on 05/26/16 08:42 ; Admin Dose 1 GM; Start 05/23/16 at 21:00 Ticagrelor (Brilinta) 90 mg Q12 PO Last administered on 05/26/16 11:02; Admin Dose 90 MG; Start 05/23/16 at 21:00 Miscellaneous Information 1 ea NOTE XX ; Start 05/23/16 at 16:00 Glucose (Glutose) 15 gm Q15M PRN PO DECREASED GLUCOSE; Start 05/23/16 at 16:00 Glucose (Glutose) 22.5 gm Q15M PRN PO DECREASED GLUCOSE; Start 05/23/16 at 16: 00 Dextrose (D50w Syringe) 25 ml Q15M PRN IV DECREASED GLUCOSE; Start 05/23/16 at 16:00 Dextrose (D50w Syringe) 50 ml Q15M PRN IV DECREASED GLUCOSE; Start 05/23/16 at 16:00 Glucagon (Glucagen) 1 mg Q15M PRN IM DECREASED GLUCOSE; Start 1/20/17 at 16:00 Glucose (Glutose) 15 gm Q15M PRN BUCCAL DECREASED GLUCOSE; Start 05/23/16 at 16 :00 Metoprolol Tartrate (Lopressor) 25 mg BID PO Last administered on 05/26/16 11: 00; Admin Dose 25 MG; Start 05/23/16 at 21:00 Clonidine (Catapres) 0.1 mg Q6H PRN PO ELEVATED SYSTOLIC BP Last administered on 05/25/16 12:52; Admin Dose 0.1 MG; Start 05/24/16 at 05:05 Hydralazine HCl (Apresoline) 25 mg Q6H PRN PO ELEVATED BLOOD PRESSURE Last administered on 05/24/16 09:16; Admin Dose 25 MG; Start 05/24/16 at 09:30 SHERITA SCOTT May 26, 2016 13:01
[2016-05-26] MEDS ORDERED: REGADENOSON 0.4 MG/5 ML SYG ONE (13:14)
--- NOTE | 2016-05-26 15:08 | RADRPT ---
PROCEDURE: Lexiscan myocardial perfusion study CLINICAL INDICATION: 60 -year-old patient complaining of chest pain. TECHNIQUE: Lexiscan 0.4 mg intravenously separate acquisition gated myocardial perfusion SPECT usi ng Tc 99m Myoview 30.3 mCi intravenously at stress and Tc-99m Myoview, 9.9 mCi intravenously at rest was performed using the rest/stress sequence. Poststress Myoview SPECT images were obtained in the supine position. COMPARISON: September 02, 2013 FINDINGS: Perfusion images reveal no evidence of new perfusion defects. Previously seen reversible perfusion D Lexiscan post stress gated SPECT images demonstrate no wall motion abnormalities. IMPRESSION: 1. No evidence of new perfusion defects. 2. No new wall motion abnormalities. 3. The left ventricle ejection fraction at stress is 59% (prior EF was 62%). A call report was made to Dr. De Santiago at 03:05 p.m. on May 26, 2016. RPTAT: HH .Zaida Olson MD, MD Date Time Electronically viewed and signed by .Zaida Olson MD, on 05/26/2016 15:08 .L/
--- NOTE | 2016-05-26 16:34 | CONS ---
Date/Time of Note Date/Time of Note DATE: 05/26/16 TIME: 16:33 Assessment/Plan Assessment/Plan Chief Complaint/Hosp Course IMPRESSION: 1. The patient has some lung infiltrate, pleural effusions.better 2. The patient has a history of volume overload clinically, hypertension, ESRD , anemia, history of AV fistula in the right upper extremity, right groin Perm-A -Cath, and pacemaker in the left chest. 3 s/p lexiscan plan hd Problems: Consultation Date/Type/Reason Admit Date/Time May 23, 2016 at 14:43 Initial Consult Date Type of Consultation: renal Referring Provider: EVA COX MD 24 HR Interval Summary Constitutional: no complaints Exam/Review of Systems Vital Signs Vitals Vital Signs Date Time Temp Pulse Resp B/P Pulse Ox O2 Delivery O2 Flow Rate FiO2 05/26/16 16:05 97.8 70 18 186/86 98 05/26/16 04:00 Room Air 05/24/16 08:10 2.0 Intake and Output 05/25/16 05/25/16 05/26/16 15:00 23:00 07:00 Intake Total 950 ml 700 ml Output Total 650 ml Balance 300 ml 700 ml Exam Respiratory: clear to auscultation Cardiovascular: regular rate and rhythm Gastrointestinal: soft Musculoskeletal: nl extremities to inspection Results Result Diagram: 05/26/1660405/26/16 0605 Results 24 hrs Laboratory Tests Test 05/25/16 17:12 05/25/16 21:22 05/26/16 01:37 05/26/16 06:05 Bedside Glucose 164 248 H 84 Activated Partial Thromboplast Time 33.9 Anion Gap 16 Basophils # 0.1 Basophils % 0.6 Blood Morphology Comment Blood Urea Nitrogen 46 H Calcium Level 9.7 Carbon Dioxide Level 29 Chloride Level 99 Creatinine 6.24 H Eosinophils # 0.5 Eosinophils % 4.5 Glucose Level 49 *L Hematocrit 23.0 L Hemoglobin 7.9 L INR International Normalized Ratio 0.93 Lymphocytes # 2.0 Lymphocytes % 19.8 Mean Corpuscular Hemoglobin 33.5 H Mean Corpuscular Hemoglobin Concent 34.5 Mean Corpuscular Volume 97.0 Mean Platelet Volume 7.7 Monocytes # 1.2 H Monocytes % 11.8 H Neutrophils # 6.5 Neutrophils % 63.3 Nucleated Red Blood Cells # 0.0 Nucleated Red Blood Cells % 0.0 Platelet Count 249 Potassium Level 3.9 Prothrombin Time 12.5 Prothrombin Time Ratio 1.0 Red Blood Count 2.37 L Red Cell Distribution Width 15.7 H Sodium Level 140 White Blood Count 10.3 # Test 05/26/16 08:36 05/26/16 15:36 Bedside Glucose 71 117 Medications Medications Current Medications Ondansetron HCl (Zofran Inj) 4 mg Q6H PRN IV NAUSEA AND/OR VOMITING; Start at 16:00 Morphine Sulfate (morphine) 2 mg Q4H PRN IV PAIN LEVEL 7-10; Start 05/23/16 at 16:00 Heparin Sodium (Porcine) (Heparin (5000 Units/0.5 ml)) 5,000 unit Q12 SC Last administered on 05/26/16 11:03; Admin Dose 5,000 UNIT; Start 05/23/16 at 21:00 Amlodipine Besylate (Norvasc) 5 mg DAILY PO Last administered on 05/26/16 11: 00; Admin Dose 5 MG; Start 05/24/16 at 09:00 Aspirin (Aspirin) 81 mg DAILY PO Last administered on 05/26/16 11:00; Admin Dose 81 MG; Start 05/24/16 at 09:00 Atorvastatin Calcium (Lipitor) 10 mg QHS PO Last administered on 05/25/16 21: 28; Admin Dose 10 MG; Start 05/23/16 at 21:00 Furosemide (Lasix) 40 mg DAILY PO Last administered on 05/26/16 11:00; Admin Dose 40 MG; Start 05/24/16 at 09:00 Acetaminophen/ Hydrocodone Bitart ([place] (5/325)) 1 tab Q4H PRN PO PAIN LEVEL 1 -5; Start 05/23/16 at 16:00 Insulin Glargine (Lantus) 20 unit QHS SC Last administered on 05/25/16 21:32; Admin Dose 20 UNIT; Start 05/23/16 at 21:00 Nitroglycerin (Nitroglycerin (Sl Tab) 0.4 Mg) 1 tab [id number] PRN SL CHEST PAIN ; Start 05/23/16 at 16:00 Sevelamer Carbonate (Renvela) 1 gm TID PO Last administered on 05/26/16 08:42 ; Admin Dose 1 GM; Start 05/23/16 at 21:00 Ticagrelor (Brilinta) 90 mg Q12 PO Last administered on 05/26/16 11:02; Admin Dose 90 MG; Start 05/23/16 at 21:00 Miscellaneous Information 1 ea NOTE XX ; Start 05/23/16 at 16:00 Glucose (Glutose) 15 gm Q15M PRN PO DECREASED GLUCOSE; Start 05/23/16 at 16:00 Glucose (Glutose) 22.5 gm Q15M PRN PO DECREASED GLUCOSE; Start 05/23/16 at 16: 00 Dextrose (D50w Syringe) 25 ml Q15M PRN IV DECREASED GLUCOSE; Start 05/23/16 at 16:00 Dextrose (D50w Syringe) 50 ml Q15M PRN IV DECREASED GLUCOSE; Start 05/23/16 at 16:00 Glucagon (Glucagen) 1 mg Q15M PRN IM DECREASED GLUCOSE; Start 05/23/16 at 16:00 Glucose (Glutose) 15 gm Q15M PRN BUCCAL DECREASED GLUCOSE; Start 05/23/16 at 16 :00 Metoprolol Tartrate (Lopressor) 25 mg BID PO Last administered on 05/26/16 11: 00; Admin Dose 25 MG; Start 05/23/16 at 21:00 Clonidine (Catapres) 0.1 mg Q6H PRN PO ELEVATED SYSTOLIC BP Last administered on 05/25/16 12:52; Admin Dose 0.1 MG; Start 05/24/16 at 05:05 Hydralazine HCl (Apresoline) 25 mg Q6H PRN PO ELEVATED BLOOD PRESSURE Last administered on 05/24/16 09:16; Admin Dose 25 MG; Start 05/24/16 at 09:30 Famotidine (Pepcid) 20 mg Q24H PO ; Start 05/26/16 at 21:00 Lisinopril (Zestril) 20 mg BID PO ; Start 05/26/16 at 21:00 PAOLA MOODY MD May 26, 2016 16:34
--- NOTE | 2016-05-26 19:26 | CARRPT ---
DATE OF PROCEDURE: 05/26/2016 LEXISCAN CARDIOLITE STRESS TEST REASON FOR STRESS TESTING: Chest pain, assess for ischemia. BASELINE VITAL SIGNS AND ELECTROCARDIOGRAM: Pulse of 70, blood pressure 197/88. Electrocardiogram reveals possible ectopic atrial rhythm, rate of 70, normal axis, normal intervals with lateral T-wav e inversion. PROCEDURE: The patient underwent standard Lexiscan infusion protocol over 10 seconds followed by ra diolabeled tracer. The patient's test was stopped due to completion of protocol. Maximal achieved blood pressure during the test 143/69. Maximal achieved heart rate during the test 77. ELECTROCARDIOGRAM FINDINGS: The patient did not develop any new Lexiscan-induced ST or T-wave rosario es from baseline abnormalities. No documented PVCs. SYMPTOMS: The patient had no complaints of chest pain during stress testing, mild shortness of nhi th resolved in recovery. IMPRESSION: 1. No Lexiscan-induced ST or T-wave changes from baseline abnormalities or diagnostic cardiac ische mary beth. 2. No complaints of chest pain during stress testing, but positive shortness of breath, which resol sil in recovery. 3. No documented premature ventricular contractions during stress testing. 4. Report of nuclear images to follow in separate dictation. Dictated By: SHERITA GARCIA/MANJIT Conf#: [id number] DID#: [id number] CC: EVA COX MD;*EndCC*
[2016-05-26] MEDS ORDERED: EPOETIN 10000 UNITS/1 ML INJ (ESRD) SC ONE (19:30)
[2016-05-26] MEDS ORDERED: HEPARIN 1000 UNITS/ML 10 ML INJ CATHETER ONE (21:30)
[2016-05-26] MEDS: FAMOTIDINE 20 MG TAB PO SCH (22:38)
[2016-05-26] MEDS: ATORVASTATIN 10 MG TAB PO SCH (22:38)
--- NOTE | 2016-05-26 22:40 | RADRPT ---
Vent Rate: 72 bpm RR Interval: 0 msec MO Interval: 172 msec QRS Duration: 98 msec QT Interval: 424 msec QTC Interval: 464 msec P-R-T [place]: 60 - 7 - 87 degrees Normal sinus rhythm Possible Left atrial enlargement Prolonged QT Abnormal ECG Electronically Signed By: Daniel Zavala [id number]
[2016-05-26] MEDS: INSULIN GLARGINE [LANtus] 3 ML PEN SC SCH (22:41)
--- NOTE | 2016-05-26 22:44 | PN ---
DATE: 05/26/2016 SUBJECTIVE: Follow up on chest pain, hypertension, end-stage renal disease, coronary artery disease . The patient denies any chest pain today. The patient has history of coronary artery disease, sta tus post CABG and status post stenting in 2014. The patient does not have orthopnea. The patient d id not have any fever or chills, no reported bleeding from any site. No reported headache, dizzines s, syncope. PHYSICAL EXAMINATION: GENERAL: The patient is conscious, awake, alert. VITAL SIGNS: Blood pressure ____/86, pulse 77, respiration 18, temperature 97.8, O2 saturation 98% on room air. HEENT: Conjunctivae and lids are normal. Oropharynx clear. NECK: Supple. No mass, no thyromegaly. CHEST: Revealed diminished air entry at bases. No use of accessory muscles. CARDIOVASCULAR: Regular rate and rhythm. S1, S2 normal. No murmur. ABDOMEN: Soft, nondistended, nontender. No palpable mass. EXTREMITIES: Trace edema. No clubbing, cyanosis. NEUROLOGIC: The patient is awake, alert with no gross focal deficit. LABORATORY DATA: Done this morning, WBC 10, hemoglobin 10.9, platelets 249. Sodium 140, potassium 3.9, BUN 46, creatinine 6.2. Fasting glucose was 49. IMPRESSION: 1. Hypoglycemia. We will decrease the dose of Lantus to 15 units at bedtime from ____. 2. Hypertension. The patient's Zestril has been increased. The patient was seen by vertical borer t o optimize antihypertensive regimen. 3. End-stage renal disease. Continue hemodialysis as per Dr. Saunders. 4. Coronary artery disease, status post coronary artery bypass graft. The patient will undergo nuc lear stress test today. Further recommendation depends on hospital course. The patient meanwhile r uled out for myocardial infarction. 5. Right pleural effusion, status post ultrasound-guided thoracentesis yesterday revealed fluid alb umin 1.9, indicative of transudative fluid from congestive heart failure. The patient does have nor mal ejection fraction, probably has diastolic dysfunction. 6. Anemia of chronic kidney disease. The patient probably will need Procrit. Will give one dose w hile he is in the hospital. 7. Meanwhile, the patient will also be continued on aspirin and Brilinta in view of history of perc utaneous coronary angioplasty. Dictated By: EVA WHEELER/MANJIT Conf#: [id number] DID#: [id number]
[2016-05-27] VITALS (21 sets, daily range): BP systolic 135–194; BP diastolic 63–98; PULSE 69–79; RESP 16–18
[2016-05-27 07:45] LABS: BASOPHIL # 0.1 10^3/ul (0.0-0.1); BASOPHILS % 0.8 % (0.0-2.0); EOSINOPHILS # 0.3 10^3/ul (0.0-0.5); EOSINOPHILS % 4.3 % (0.0-7.0); HEMATOCRIT 20.7 % (42.0-52.0); HEMOGLOBIN 7.1 g/dl (14.0-18.0); LYMPHOCYTES % 13.3 % (15.0-51.0); MEAN CORPUSCULAR HEMOGLOBIN 33.2 pg (29.0-33.0); MEAN CORPUSCULAR HGB CONC 34.3 g/dl (32.0-37.0); MEAN CORPUSCULAR VOLUME 96.9 fl (82.0-101.0); MEAN PLATELET VOLUME 7.6 fl (7.4-10.4); MONOCYTE # 0.8 10^3/ul (0.3-0.9); MONOCYTES % 10.3 % (0.0-11.0); NEUTROPHIL # 5.4 10^3/ul (1.6-7.5); NEUTROPHILS % 71.3 % (39.0-77.0); PLATELET COUNT 211 10^3/UL (140-440); RED BLOOD COUNT 2.13 10^6/ul (4.70-6.10); RED CELL DISTRIBUTION WIDTH 16.2 % (11.5-14.5); UNCORRECTED WBC 7.6 10^3/ul (4.8-10.8); WHITE BLOOD COUNT 7.6 10^3/ul (4.8-10.8)
[2016-05-27 08:00] LABS: CONDITION 1; LH ANALYZER COMMENTS 1
[2016-05-27] MEDS: INSULIN ASPART [NOVOLOG] 3 ML PEN SC SCH ×4 (08:00→21:54)
[2016-05-27] MEDS: SEVELAMER CARBONATE 0.8 GM PKT PO SCH ×3 (09:09→21:48)
[2016-05-27] MEDS: METOPROLOL 25 MG TAB PO SCH (09:10)
[2016-05-27] MEDS: ASPIRIN 81 MG TAB PO SCH (09:10)
[2016-05-27] MEDS: LISINOPRIL 20 MG TAB PO SCH ×2 (09:10→21:50)
[2016-05-27] MEDS: AMLODIPINE 5 MG TAB PO SCH ×2 (09:10→21:50)
[2016-05-27] MEDS: FUROSEMIDE 40 MG TAB PO SCH (09:11)
[2016-05-27] MEDS: HEPARIN 5,000 UNIT/0.5 ML SYG SC SCH ×2 (09:16→21:45)
[2016-05-27] MEDS: TICAGRELOR 90 MG TABLET PO SCH ×2 (09:16→21:49)
[2016-05-27] MEDS ORDERED: SOD CHLORIDE 0.9% 250 ML IV* ONE (12:28)
--- NOTE | 2016-05-27 15:08 | CONS ---
Date/Time of Note Date/Time of Note DATE: 05/27/16 TIME: 15:07 Assessment/Plan Assessment/Plan Chief Complaint/Hosp Course IMPRESSION: 1. anemia 2. The patient has a history of volume overload , hypertension, ESRD, anemia, history of AV fistula in the right upper extremity, right groin Perm-A-Cath, and pacemaker in the left chest. 3 s/p lexiscan plan hd and prbc Problems: Consultation Date/Type/Reason Admit Date/Time May 23, 2016 at 14:43 Type of Consultation: renal Referring Provider: EVA COX MD 24 HR Interval Summary Constitutional: no complaints Exam/Review of Systems Vital Signs Vitals Vital Signs Date Time Temp Pulse Resp B/P Pulse Ox O2 Delivery O2 Flow Rate FiO2 05/27/16 12:40 69 05/27/16 11:29 98.2 18 166/72 96 05/27/16 04:20 Room Air 05/24/16 08:10 2.0 Intake and Output 05/26/16 05/26/16 05/27/16 15:00 23:00 07:00 Intake Total 1250 ml 500 ml Output Total 1600 ml 1300 ml Balance -350 ml -800 ml Exam Neck: supple Respiratory: diminished breath sounds Cardiovascular: regular rate and rhythm Gastrointestinal: bowel sounds (+), soft Extremities: No edema Results Result Diagram: 05/27/16 0610 05/26/16 0605 Results 24 hrs Laboratory Tests Test 05/26/16 15:36 05/26/16 17:20 05/26/16 22:13 05/27/16 06:10 Bedside Glucose 117 244 H 219 Basophils # 0.1 Basophils % 0.8 Blood Morphology Comment Eosinophils # 0.3 Eosinophils % 4.3 Hematocrit 20.7 L Hemoglobin 7.1 L Lymphocytes # 1.0 Lymphocytes % 13.3 L Mean Corpuscular Hemoglobin 33.2 H Mean Corpuscular Hemoglobin Concent 34.3 Mean Corpuscular Volume 96.9 Mean Platelet Volume 7.6 Monocytes # 0.8 Monocytes % 10.3 Neutrophils # 5.4 Neutrophils % 71.3 Nucleated Red Blood Cells # 0.0 Nucleated Red Blood Cells % 0.0 Platelet Count 211 Red Blood Count 2.13 L Red Cell Distribution Width 16.2 H White Blood Count 7.6 # Test 05/27/16 08:27 05/27/16 12:37 Bedside Glucose 115 208 Medications Medications Current Medications Ondansetron HCl (Zofran Inj) 4 mg Q6H PRN IV NAUSEA AND/OR VOMITING; Start at 16:00 Morphine Sulfate (morphine) 2 mg Q4H PRN IV PAIN LEVEL 7-10; Start 05/23/16 at 16:00 Heparin Sodium (Porcine) (Heparin (5000 Units/0.5 ml)) 5,000 unit Q12 SC Last administered on 05/27/16 09:16; Admin Dose 5,000 UNIT; Start 05/23/16 at 21:00 Amlodipine Besylate (Norvasc) 5 mg DAILY PO Last administered on 05/27/16 09: 10; Admin Dose 5 MG; Start 05/24/16 at 09:00 Aspirin (Aspirin) 81 mg DAILY PO Last administered on 05/27/16 09:10; Admin Dose 81 MG; Start 05/24/16 at 09:00 Atorvastatin Calcium (Lipitor) 10 mg QHS PO Last administered on 05/26/16 22: 38; Admin Dose 10 MG; Start 05/23/16 at 21:00 Furosemide (Lasix) 40 mg DAILY PO Last administered on 05/27/16 09:11; Admin Dose 40 MG; Start 05/24/16 at 09:00 Acetaminophen/ Hydrocodone Bitart ([place] (5/325)) 1 tab Q4H PRN PO PAIN LEVEL 1 -5; Start 05/23/16 at 16:00 Nitroglycerin (Nitroglycerin (Sl Tab) 0.4 Mg) 1 tab [id number] PRN SL CHEST PAIN ; Start 05/23/16 at 16:00 Sevelamer Carbonate (Renvela) 1 gm TID PO Last administered on 05/27/16 12:42 ; Admin Dose 1 GM; Start 05/23/16 at 21:00 Ticagrelor (Brilinta) 90 mg Q12 PO Last administered on 05/27/16 09:16; Admin Dose 90 MG; Start 05/23/16 at 21:00 Miscellaneous Information 1 ea NOTE XX ; Start 05/23/16 at 16:00 Glucose (Glutose) 15 gm Q15M PRN PO DECREASED GLUCOSE; Start 05/23/16 at 16:00 Glucose (Glutose) 22.5 gm Q15M PRN PO DECREASED GLUCOSE; Start 05/23/16 at 16: 00 Dextrose (D50w Syringe) 25 ml Q15M PRN IV DECREASED GLUCOSE; Start 05/23/16 at 16:00 Dextrose (D50w Syringe) 50 ml Q15M PRN IV DECREASED GLUCOSE; Start 05/23/16 at 16:00 Glucagon (Glucagen) 1 mg Q15M PRN IM DECREASED GLUCOSE; Start 05/23/16 at 16:00 Glucose (Glutose) 15 gm Q15M PRN BUCCAL DECREASED GLUCOSE; Start 05/23/16 at 16 :00 Metoprolol Tartrate (Lopressor) 25 mg BID PO Last administered on 05/27/16 09: 10; Admin Dose 25 MG; Start 05/23/16 at 21:00 Clonidine (Catapres) 0.1 mg Q6H PRN PO ELEVATED SYSTOLIC BP Last administered on 05/25/16 12:52; Admin Dose 0.1 MG; Start 05/24/16 at 05:05 Hydralazine HCl (Apresoline) 25 mg Q6H PRN PO ELEVATED BLOOD PRESSURE Last administered on 05/24/16 09:16; Admin Dose 25 MG; Start 05/24/16 at 09:30 Famotidine (Pepcid) 20 mg Q24H PO Last administered on 05/26/16 22:38; Admin Dose 20 MG; Start 05/26/16 at 21:00 Lisinopril (Zestril) 20 mg BID PO Last administered on 05/27/16 09:10; Admin Dose 20 MG; Start 05/26/16 at 21:00 Insulin Glargine (Lantus) 15 unit QHS SC Last administered on 05/26/16 22:41; Admin Dose 15 UNIT; Start 05/26/16 at 21:00 PAOLA MOODY MD May 27, 2016 15:08
--- NOTE | 2016-05-27 16:45 | PN ---
Date/Time of Note Date/Time of Note DATE: 05/27/16 TIME: 16:38 Assessment/Plan VTE Prophylaxis VTE Prophylaxis Intervention: SCD's Lines/Catheters [facility] [place] Urinary Cath still in place: No Assessment/Plan Chief Complaint/Hosp Course Assessment and plan - Anemia of chronic kidney disease. Patient is giving Procrit. Transfused blood with next hemodialysis. - End-stage renal disease. Continue hemodialysis, Dr. Saunders is following. - Chest pain on admission, patient status post stress test. Continue to follow- up cardiology recommendations. - Coronary artery disease, status post coronary artery triple bypass. - Status post percutaneous coronary angioplasty, continue aspirin and Brilinta - Diabetes mellitus with hypoglycemia. Continue Lantus and NovoLog - Hypertension. Continue Zestril - Right pleural effusion, status post ultrasound-guided thoracentesis Further recommendations based on clinical course. Plan of care discussed with Dr. Price Problems: Subjective 24 Hr Interval Summary Free Text/Dictation Patient stated that he is doing better, denies fever. Hemoglobin is 7.1 today. We will transfuse 2 units of packed red blood cells with next hemodialysis. Exam/Review of Systems Vital Signs Vitals Vital Signs Date Time Temp Pulse Resp B/P Pulse Ox O2 Delivery O2 Flow Rate FiO2 05/27/16 15:19 97.9 74 18 168/74 96 05/27/16 04:20 Room Air 05/24/16 08:10 2.0 Intake and Output 05/26/16 05/26/16 05/27/16 15:00 23:00 07:00 Intake Total 1250 ml 500 ml Output Total 1600 ml 1300 ml Balance -350 ml -800 ml Exam GENERAL: The patient is conscious, awake, alert. HEENT: Conjunctivae and lids are normal. Oropharynx clear. NECK: Supple. No mass, no thyromegaly. CHEST: Revealed diminished air entry at bases. No use of accessory muscles. CARDIOVASCULAR: Regular rate and rhythm. S1, S2 normal. No murmur. ABDOMEN: Soft, nondistended, nontender. No palpable mass. EXTREMITIES: Trace edema. No clubbing, cyanosis. NEUROLOGIC: The patient is awake, alert with no gross focal deficit. Results Result Diagram: 05/27/16 0610 05/26/16 0605 Results 24 hrs Laboratory Tests Test 05/26/16 17:20 05/26/16 22:13 05/27/16 06:10 05/27/16 08:27 Bedside Glucose 244 H 219 115 Basophils # 0.1 Basophils % 0.8 Blood Morphology Comment Eosinophils # 0.3 Eosinophils % 4.3 Hematocrit 20.7 L Hemoglobin 7.1 L Lymphocytes # 1.0 Lymphocytes % 13.3 L Mean Corpuscular Hemoglobin 33.2 H Mean Corpuscular Hemoglobin Concent 34.3 Mean Corpuscular Volume 96.9 Mean Platelet Volume 7.6 Monocytes # 0.8 Monocytes % 10.3 Neutrophils # 5.4 Neutrophils % 71.3 Nucleated Red Blood Cells # 0.0 Nucleated Red Blood Cells % 0.0 Platelet Count 211 Red Blood Count 2.13 L Red Cell Distribution Width 16.2 H White Blood Count 7.6 # Test 05/27/16 12:37 Bedside Glucose 208 Medications Medications Current Medications Ondansetron HCl (Zofran Inj) 4 mg Q6H PRN IV NAUSEA AND/OR VOMITING; Start at 16:00 Morphine Sulfate (morphine) 2 mg Q4H PRN IV PAIN LEVEL 7-10; Start 05/23/16 at 16:00 Heparin Sodium (Porcine) (Heparin (5000 Units/0.5 ml)) 5,000 unit Q12 SC Last administered on 05/27/16 09:16; Admin Dose 5,000 UNIT; Start 05/23/16 at 21:00 Amlodipine Besylate (Norvasc) 5 mg DAILY PO Last administered on 05/27/16 09: 10; Admin Dose 5 MG; Start 05/24/16 at 09:00 Aspirin (Aspirin) 81 mg DAILY PO Last administered on 05/27/16 09:10; Admin Dose 81 MG; Start 05/24/16 at 09:00 Atorvastatin Calcium (Lipitor) 10 mg QHS PO Last administered on 05/26/16 22: 38; Admin Dose 10 MG; Start 05/23/16 at 21:00 Furosemide (Lasix) 40 mg DAILY PO Last administered on 05/27/16 09:11; Admin Dose 40 MG; Start 05/24/16 at 09:00 Acetaminophen/ Hydrocodone Bitart ([place] (5/325)) 1 tab Q4H PRN PO PAIN LEVEL 1 -5; Start 05/23/16 at 16:00 Nitroglycerin (Nitroglycerin (Sl Tab) 0.4 Mg) 1 tab [id number] PRN SL CHEST PAIN ; Start 05/23/16 at 16:00 Sevelamer Carbonate (Renvela) 1 gm TID PO Last administered on 05/27/16 12:42 ; Admin Dose 1 GM; Start 05/23/16 at 21:00 Ticagrelor (Brilinta) 90 mg Q12 PO Last administered on 05/27/16 09:16; Admin Dose 90 MG; Start 05/23/16 at 21:00 Miscellaneous Information 1 ea NOTE XX ; Start 05/23/16 at 16:00 Glucose (Glutose) 15 gm Q15M PRN PO DECREASED GLUCOSE; Start 05/23/16 at 16:00 Glucose (Glutose) 22.5 gm Q15M PRN PO DECREASED GLUCOSE; Start 05/23/16 at 16: 00 Dextrose (D50w Syringe) 25 ml Q15M PRN IV DECREASED GLUCOSE; Start 05/23/16 at 16:00 Dextrose (D50w Syringe) 50 ml Q15M PRN IV DECREASED GLUCOSE; Start 05/23/16 at 16:00 Glucagon (Glucagen) 1 mg Q15M PRN IM DECREASED GLUCOSE; Start 05/23/16 at 16:00 Glucose (Glutose) 15 gm Q15M PRN BUCCAL DECREASED GLUCOSE; Start 05/23/16 at 16 :00 Metoprolol Tartrate (Lopressor) 25 mg BID PO Last administered on 05/27/16 09: 10; Admin Dose 25 MG; Start 05/23/16 at 21:00 Clonidine (Catapres) 0.1 mg Q6H PRN PO ELEVATED SYSTOLIC BP Last administered on 05/25/16 12:52; Admin Dose 0.1 MG; Start 05/24/16 at 05:05 Hydralazine HCl (Apresoline) 25 mg Q6H PRN PO ELEVATED BLOOD PRESSURE Last administered on 05/24/16 09:16; Admin Dose 25 MG; Start 05/24/16 at 09:30 Famotidine (Pepcid) 20 mg Q24H PO Last administered on 05/26/16 22:38; Admin Dose 20 MG; Start 05/26/16 at 21:00 Lisinopril (Zestril) 20 mg BID PO Last administered on 05/27/16 09:10; Admin Dose 20 MG; Start 05/26/16 at 21:00 Insulin Glargine (Lantus) 15 unit QHS SC Last administered on 05/26/16 22:41; Admin Dose 15 UNIT; Start 05/26/16 at 21:00 CECILIA DAMICO May 27, 2016 16:45
--- NOTE | 2016-05-27 18:20 | CONS ---
Date/Time of Note Date/Time of Note DATE: 05/27/16 TIME: 18:17 Assessment/Plan Assessment/Plan Chief Complaint/Hosp Course Imp: 1.CHF-diastolic acute on chronic by echo this admit-EF 65% 2.HTN 3.H/O PTCA/stent to LAD/LMN 2014 4. H/O CABG 5.ESRD on HD 6. Pleural effusion s/p thoracentesis 7.Dyslipidemia 8.Chest pain-negative troponin's x 3 since admit. Lexiscan stress negative for ischemia 05/26/16/NL EF Recc: -Tele -Increase BB/CCB to improve BP -Continue ACEI -HD for volume removal -Continue asa/brilinta -Continue statin -HD for volume removal Problems: Consultation Date/Type/Reason Admit Date/Time May 23, 2016 at 14:43 Initial Consult Date 05/24/2016 Type of Consultation: cardiology Reason for Consultation chest pain Referring Provider: EVA COX MD Exam/Review of Systems Vital Signs Vitals Vital Signs Date Time Temp Pulse Resp B/P Pulse Ox O2 Delivery O2 Flow Rate FiO2 05/27/16 16:50 70 05/27/16 15:19 97.9 18 168/74 96 05/27/16 04:20 Room Air 05/24/16 08:10 2.0 Intake and Output 05/26/16 05/26/16 05/27/16 15:00 23:00 07:00 Intake Total 1250 ml 500 ml Output Total 1600 ml 1300 ml Balance -350 ml -800 ml Exam Review of Systems: CONSTITUTIONAL: No fevers, chills. PULMONARY: No sob CARDIOVASCULAR: No chest pain/palpitations GASTROINTESTINAL: No nausea/vomiting. GENITOURINARY: No hematuria/dysuria. MUSCULOSKELETAL: No myagias/arthalgias. PSYCHIATRIC: The patient denies depression. NEUROLOGIC: No weakness Constitutional: alert, oriented Psych: no complaints Head: normocephalic ENMT: mucosa pink and moist Neck: jvd (9 cm water), supple Respiratory: diminished breath sounds (at bases/B) Cardiovascular: regular rate and rhythm Gastrointestinal: non-tender, soft Musculoskeletal: muscle tone (normal) Extremities: edema (trace/B) Neurological: other (No focal deficits) Results Result Diagram: 05/27/16 0610 05/26/16 0605 Results 24 hrs Laboratory Tests Test 1/23/17 22:13 05/27/16 06:10 05/27/16 08:27 05/27/16 12:37 Bedside Glucose 219 115 208 Basophils # 0.1 Basophils % 0.8 Blood Morphology Comment Eosinophils # 0.3 Eosinophils % 4.3 Hematocrit 20.7 L Hemoglobin 7.1 L Lymphocytes # 1.0 Lymphocytes % 13.3 L Mean Corpuscular Hemoglobin 33.2 H Mean Corpuscular Hemoglobin Concent 34.3 Mean Corpuscular Volume 96.9 Mean Platelet Volume 7.6 Monocytes # 0.8 Monocytes % 10.3 Neutrophils # 5.4 Neutrophils % 71.3 Nucleated Red Blood Cells # 0.0 Nucleated Red Blood Cells % 0.0 Platelet Count 211 Red Blood Count 2.13 L Red Cell Distribution Width 16.2 H White Blood Count 7.6 # Test 05/27/16 17:22 Bedside Glucose 143 Medications Medications Current Medications Ondansetron HCl (Zofran Inj) 4 mg Q6H PRN IV NAUSEA AND/OR VOMITING; Start at 16:00 Morphine Sulfate (morphine) 2 mg Q4H PRN IV PAIN LEVEL 7-10; Start 05/23/16 at 16:00 Heparin Sodium (Porcine) (Heparin (5000 Units/0.5 ml)) 5,000 unit Q12 SC Last administered on 05/27/16 09:16; Admin Dose 5,000 UNIT; Start 05/23/16 at 21:00 Amlodipine Besylate (Norvasc) 5 mg DAILY PO Last administered on 05/27/16 09: 10; Admin Dose 5 MG; Start 05/24/16 at 09:00 Aspirin (Aspirin) 81 mg DAILY PO Last administered on 05/27/16 09:10; Admin Dose 81 MG; Start 05/24/16 at 09:00 Atorvastatin Calcium (Lipitor) 10 mg QHS PO Last administered on 05/26/16 22: 38; Admin Dose 10 MG; Start 05/23/16 at 21:00 Furosemide (Lasix) 40 mg DAILY PO Last administered on 05/27/16 09:11; Admin Dose 40 MG; Start 05/24/16 at 09:00 Acetaminophen/ Hydrocodone Bitart ([place] (5/325)) 1 tab Q4H PRN PO PAIN LEVEL 1 -5; Start 05/23/16 at 16:00 Nitroglycerin (Nitroglycerin (Sl Tab) 0.4 Mg) 1 tab [id number] PRN SL CHEST PAIN ; Start 05/23/16 at 16:00 Sevelamer Carbonate (Renvela) 1 gm TID PO Last administered on 05/27/16 12:42 ; Admin Dose 1 GM; Start 05/23/16 at 21:00 Ticagrelor (Brilinta) 90 mg Q12 PO Last administered on 05/27/16 09:16; Admin Dose 90 MG; Start 05/23/16 at 21:00 Miscellaneous Information 1 ea NOTE XX ; Start 05/23/16 at 16:00 Glucose (Glutose) 15 gm Q15M PRN PO DECREASED GLUCOSE; Start 05/23/16 at 16:00 Glucose (Glutose) 22.5 gm Q15M PRN PO DECREASED GLUCOSE; Start 05/23/16 at 16: 00 Dextrose (D50w Syringe) 25 ml Q15M PRN IV DECREASED GLUCOSE; Start 05/23/16 at 16:00 Dextrose (D50w Syringe) 50 ml Q15M PRN IV DECREASED GLUCOSE; Start 05/23/16 at 16:00 Glucagon (Glucagen) 1 mg Q15M PRN IM DECREASED GLUCOSE; Start 05/23/16 at 16:00 Glucose (Glutose) 15 gm Q15M PRN BUCCAL DECREASED GLUCOSE; Start 05/23/16 at 16 :00 Metoprolol Tartrate (Lopressor) 25 mg BID PO Last administered on 05/27/16 09: 10; Admin Dose 25 MG; Start 05/23/16 at 21:00 Clonidine (Catapres) 0.1 mg Q6H PRN PO ELEVATED SYSTOLIC BP Last administered on 05/25/16 12:52; Admin Dose 0.1 MG; Start 05/24/16 at 05:05 Hydralazine HCl (Apresoline) 25 mg Q6H PRN PO ELEVATED BLOOD PRESSURE Last administered on 05/24/16 09:16; Admin Dose 25 MG; Start 05/24/16 at 09:30 Famotidine (Pepcid) 20 mg Q24H PO Last administered on 05/26/16 22:38; Admin Dose 20 MG; Start 05/26/16 at 21:00 Lisinopril (Zestril) 20 mg BID PO Last administered on 05/27/16 09:10; Admin Dose 20 MG; Start 05/26/16 at 21:00 Insulin Glargine (Lantus) 15 unit QHS SC Last administered on 05/26/16 22:41; Admin Dose 15 UNIT; Start 05/26/16 at 21:00 SHERITA SCOTT May 27, 2016 18:20
[2016-05-27] MEDS: ATORVASTATIN 10 MG TAB PO SCH (21:47)
[2016-05-27] MEDS: METOPROLOL 50 MG TAB PO SCH (21:47)
[2016-05-27] MEDS: FAMOTIDINE 20 MG TAB PO SCH (21:48)
[2016-05-27] MEDS: INSULIN GLARGINE [LANtus] 3 ML PEN SC SCH (21:52)
[2016-05-28] VITALS (17 sets, daily range): BP systolic 128–174; BP diastolic 59–79; PULSE 69–74; RESP 16–18
[2016-05-28 07:01] LABS: BASOPHIL # 0.1 10^3/ul (0.0-0.1); EOSINOPHILS # 0.3 10^3/ul (0.0-0.5); EOSINOPHILS % 3.8 % (0.0-7.0); LYMPHOCYTES # 0.8 10^3/ul (0.8-2.9); LYMPHOCYTES % 10.1 % (15.0-51.0); MEAN CORPUSCULAR HEMOGLOBIN 32.7 pg (29.0-33.0); MEAN CORPUSCULAR HGB CONC 34.4 g/dl (32.0-37.0); MEAN CORPUSCULAR VOLUME 94.9 fl (82.0-101.0); MEAN PLATELET VOLUME 7.8 fl (7.4-10.4); MONOCYTE # 0.8 10^3/ul (0.3-0.9); MONOCYTES % 9.7 % (0.0-11.0); NEUTROPHILS % 75.4 % (39.0-77.0); PLATELET COUNT 156 10^3/UL (140-440); RED BLOOD COUNT 3.06 10^6/ul (4.70-6.10); RED CELL DISTRIBUTION WIDTH 16.5 % (11.5-14.5)
[2016-05-28 07:05] LABS: CONDITION 1; LH ANALYZER COMMENTS 1
[2016-05-28 07:13] LABS: POTASSIUM 4.1 mmol/L (3.5-5.1)
[2016-05-28 07:15] LABS: CREATININE 4.47 mg/dl (0.61-1.24)
[2016-05-28 07:16] LABS: CALCIUM 8.9 mg/dl (8.4-10.2)
[2016-05-28] MEDS: INSULIN ASPART [NOVOLOG] 3 ML PEN SC SCH ×2 (08:00→12:20)
[2016-05-28] MEDS: SEVELAMER CARBONATE 0.8 GM PKT PO SCH ×2 (11:20→14:04)
[2016-05-28] MEDS: HEPARIN 5,000 UNIT/0.5 ML SYG SC SCH (11:21)
[2016-05-28] MEDS: FUROSEMIDE 40 MG TAB PO SCH (11:23)
[2016-05-28] MEDS: METOPROLOL 50 MG TAB PO SCH (11:23)
[2016-05-28] MEDS: LISINOPRIL 20 MG TAB PO SCH (11:23)
[2016-05-28] MEDS: ASPIRIN 81 MG TAB PO SCH (11:23)
[2016-05-28] MEDS: AMLODIPINE 5 MG TAB PO SCH (11:24)
[2016-05-28] MEDS: TICAGRELOR 90 MG TABLET PO SCH (11:36)
--- NOTE | 2016-05-28 12:56 | CONS ---
Date/Time of Note Date/Time of Note DATE: 05/28/16 TIME: 12:55 Assessment/Plan Assessment/Plan Chief Complaint/Hosp Course IMPRESSION: 1. anemia 2. The patient has a history of volume overload better, hypertension, ESRD, anemia, history of AV fistula in the right upper extremity, right groin Perm-A- Cath, and pacemaker in the left chest. 3 s/p lexiscan plan hd renal stable Problems: Consultation Date/Type/Reason Admit Date/Time May 23, 2016 at 14:43 Type of Consultation: renal Referring Provider: EVA COX MD 24 HR Interval Summary Constitutional: no complaints Exam/Review of Systems Vital Signs Vitals Vital Signs Date Time Temp Pulse Resp B/P Pulse Ox O2 Delivery O2 Flow Rate FiO2 05/28/16 12:45 69 05/28/16 11:55 98.2 18 163/63 95 05/28/16 06:00 Room Air 05/24/16 08:10 2.0 Intake and Output 05/27/16 05/27/16 05/28/16 15:00 23:00 07:00 Intake Total 2040 ml 500 ml Output Total 1500 ml Balance 540 ml 500 ml Exam Neck: supple Respiratory: clear to auscultation Cardiovascular: regular rate and rhythm Gastrointestinal: soft Musculoskeletal: nl extremities to inspection Extremities: normal pulses Results Result Diagram: 05/28/16 0605 05/28/16 0605 Results 24 hrs Laboratory Tests Test 05/27/16 17:22 05/27/16 21:43 05/28/16 06:05 05/28/16 08:13 Bedside Glucose 143 192 127 Anion Gap 16 Basophils # 0.1 Basophils % 1.0 Blood Morphology Comment Blood Urea Nitrogen 34 #H Calcium Level 8.9 Carbon Dioxide Level 30 Chloride Level 99 Creatinine 4.47 #H Eosinophils # 0.3 Eosinophils % 3.8 Glucose Level 119 # Hematocrit 29.0 #L Hemoglobin 10.0 #L Lymphocytes # 0.8 Lymphocytes % 10.1 L Mean Corpuscular Hemoglobin 32.7 Mean Corpuscular Hemoglobin Concent 34.4 Mean Corpuscular Volume 94.9 Mean Platelet Volume 7.8 Monocytes # 0.8 Monocytes % 9.7 Neutrophils # 6.0 Neutrophils % 75.4 Nucleated Red Blood Cells # 0.0 Nucleated Red Blood Cells % 0.0 Platelet Count 156 # Potassium Level 4.1 Red Blood Count 3.06 #L Red Cell Distribution Width 16.5 H Sodium Level 141 White Blood Count 8.0 Test 05/28/16 12:10 Bedside Glucose 203 Medications Medications Current Medications Ondansetron HCl (Zofran Inj) 4 mg Q6H PRN IV NAUSEA AND/OR VOMITING; Start at 16:00 Morphine Sulfate (morphine) 2 mg Q4H PRN IV PAIN LEVEL 7-10; Start 05/23/16 at 16:00 Heparin Sodium (Porcine) (Heparin (5000 Units/0.5 ml)) 5,000 unit Q12 SC Last administered on 05/27/16 21:45; Admin Dose 5,000 UNIT; Start 05/23/16 at 21:00 Aspirin (Aspirin) 81 mg DAILY PO Last administered on 05/28/16 11:23; Admin Dose 81 MG; Start 05/24/16 at 09:00 Atorvastatin Calcium (Lipitor) 10 mg QHS PO Last administered on 05/27/16 21: 47; Admin Dose 10 MG; Start 05/23/16 at 21:00 Furosemide (Lasix) 40 mg DAILY PO Last administered on 05/28/16 11:23; Admin Dose 40 MG; Start 05/24/16 at 09:00 Acetaminophen/ Hydrocodone Bitart ([place] (5/325)) 1 tab Q4H PRN PO PAIN LEVEL 1 -5; Start 05/23/16 at 16:00 Nitroglycerin (Nitroglycerin (Sl Tab) 0.4 Mg) 1 tab [id number] PRN SL CHEST PAIN ; Start 05/23/16 at 16:00 Sevelamer Carbonate (Renvela) 1 gm TID PO Last administered on 05/28/16 11:20 ; Admin Dose 1 GM; Start 05/23/16 at 21:00 Ticagrelor (Brilinta) 90 mg Q12 PO Last administered on 05/28/16 11:36; Admin Dose 90 MG; Start 05/23/16 at 21:00 Miscellaneous Information 1 ea NOTE XX ; Start 05/23/16 at 16:00 Glucose (Glutose) 15 gm Q15M PRN PO DECREASED GLUCOSE; Start 05/23/16 at 16:00 Glucose (Glutose) 22.5 gm Q15M PRN PO DECREASED GLUCOSE; Start 05/23/16 at 16: 00 Dextrose (D50w Syringe) 25 ml Q15M PRN IV DECREASED GLUCOSE; Start 05/23/16 at 16:00 Dextrose (D50w Syringe) 50 ml Q15M PRN IV DECREASED GLUCOSE; Start 05/23/16 at 16:00 Glucagon (Glucagen) 1 mg Q15M PRN IM DECREASED GLUCOSE; Start 05/23/16 at 16:00 Glucose (Glutose) 15 gm Q15M PRN BUCCAL DECREASED GLUCOSE; Start 05/23/16 at 16 :00 Clonidine (Catapres) 0.1 mg Q6H PRN PO ELEVATED SYSTOLIC BP Last administered on 05/28/16 05:10; Admin Dose 0.1 MG; Start 05/24/16 at 05:05 Hydralazine HCl (Apresoline) 25 mg Q6H PRN PO ELEVATED BLOOD PRESSURE Last administered on 05/27/16 23:16; Admin Dose 25 MG; Start 05/24/16 at 09:30 Famotidine (Pepcid) 20 mg Q24H PO Last administered on 05/27/16 21:48; Admin Dose 20 MG; Start 05/26/16 at 21:00 Lisinopril (Zestril) 20 mg BID PO Last administered on 05/28/16 11:23; Admin Dose 20 MG; Start 05/26/16 at 21:00 Insulin Glargine (Lantus) 15 unit QHS SC Last administered on 05/27/16 21:52; Admin Dose 15 UNIT; Start 05/26/16 at 21:00 Amlodipine Besylate (Norvasc) 5 mg BID PO Last administered on 05/28/16 11:24 ; Admin Dose 5 MG; Start 05/27/16 at 21:00 Metoprolol Tartrate (Lopressor) 50 mg BID PO Last administered on 05/28/16 11: 23; Admin Dose 50 MG; Start 05/27/16 at 21:00 PAOLA MOODY MD May 28, 2016 12:56
--- NOTE | 2016-05-28 14:00 | CONS ---
Date/Time of Note Date/Time of Note DATE: 05/28/16 TIME: 13:58 Assessment/Plan Assessment/Plan Additional Assessment/Plan 1.CHF-diastolic acute on chronic by echo this admit-EF 65% - con't to keep euvolemic. 2.HTN - on high side, will adjusrt Rx as needed 3.H/O PTCA/stent to LAD/LMN 2014 - Dr. De Santiago follows 4. H/O CABG - no cP now 5.ESRD on HD - Rx per Dr. Saunders. 6. Pleural effusion s/p thoracentesis - pulmonary follows 7.Dyslipidemia 8.Chest pain-negative troponin's x 3 since admit. Lexiscan stress negative for ischemia 05/26/16/NL EF Consultation Date/Type/Reason Admit Date/Time May 23, 2016 at 14:43 Initial Consult Date Type of Consultation: renal Referring Provider: EVA COX MD 24 HR Interval Summary Free Text/Dictation No acute change - con't to keep euvolemic now. Medications reviewed. ROS: No fever, no chills, no nausea, no vomiting, no diarrhea/constipation No recent weight changes No chest pain, no PND, no orthopnea No dizziness, blurred vision No thirst, no heat or cold intolerance Exam/Review of Systems Vital Signs Vitals Vital Signs Date Time Temp Pulse Resp B/P Pulse Ox O2 Delivery O2 Flow Rate FiO2 05/28/16 12:45 69 05/28/16 11:55 98.2 18 163/63 95 05/28/16 06:00 Room Air 05/24/16 08:10 2.0 Intake and Output 05/27/16 05/27/16 05/28/16 15:00 23:00 07:00 Intake Total 2040 ml 500 ml Output Total 1500 ml Balance 540 ml 500 ml Exam General: WN/WD/NAD, AOx 2-3 HEENT: Unicetric/atraumatic/EOMI (ot follow commands) NECK: JVD elevated, no thyromegaly Lymph: no lymphadenopathy HEART: regular with no S3, II/ systolic murmur at apex LUNGS: Coarse sounds ABD: soft, NT, ND, +BS : Intact Neuro: non focal SKIN: chronic changes EXT: trace edema, AVF Results Result Diagram: 05/28/1660405/28/16 0605 Results 24 hrs Laboratory Tests Test 05/27/16 17:22 05/27/16 21:43 05/28/16 06:05 05/28/16 08:13 Bedside Glucose 143 192 127 Anion Gap 16 Basophils # 0.1 Basophils % 1.0 Blood Morphology Comment Blood Urea Nitrogen 34 #H Calcium Level 8.9 Carbon Dioxide Level 30 Chloride Level 99 Creatinine 4.47 #H Eosinophils # 0.3 Eosinophils % 3.8 Glucose Level 119 # Hematocrit 29.0 #L Hemoglobin 10.0 #L Lymphocytes # 0.8 Lymphocytes % 10.1 L Mean Corpuscular Hemoglobin 32.7 Mean Corpuscular Hemoglobin Concent 34.4 Mean Corpuscular Volume 94.9 Mean Platelet Volume 7.8 Monocytes # 0.8 Monocytes % 9.7 Neutrophils # 6.0 Neutrophils % 75.4 Nucleated Red Blood Cells # 0.0 Nucleated Red Blood Cells % 0.0 Platelet Count 156 # Potassium Level 4.1 Red Blood Count 3.06 #L Red Cell Distribution Width 16.5 H Sodium Level 141 White Blood Count 8.0 Test 05/28/16 12:10 Bedside Glucose 203 Medications Medications Current Medications Ondansetron HCl (Zofran Inj) 4 mg Q6H PRN IV NAUSEA AND/OR VOMITING; Start at 16:00 Morphine Sulfate (morphine) 2 mg Q4H PRN IV PAIN LEVEL 7-10; Start 05/23/16 at 16:00 Heparin Sodium (Porcine) (Heparin (5000 Units/0.5 ml)) 5,000 unit Q12 SC Last administered on 05/27/16 21:45; Admin Dose 5,000 UNIT; Start 05/23/16 at 21:00 Aspirin (Aspirin) 81 mg DAILY PO Last administered on 05/28/16 11:23; Admin Dose 81 MG; Start 05/24/16 at 09:00 Atorvastatin Calcium (Lipitor) 10 mg QHS PO Last administered on 05/27/16 21: 47; Admin Dose 10 MG; Start 05/23/16 at 21:00 Furosemide (Lasix) 40 mg DAILY PO Last administered on 05/28/16 11:23; Admin Dose 40 MG; Start 05/24/16 at 09:00 Acetaminophen/ Hydrocodone Bitart ([place] (5/325)) 1 tab Q4H PRN PO PAIN LEVEL 1 -5; Start 05/23/16 at 16:00 Nitroglycerin (Nitroglycerin (Sl Tab) 0.4 Mg) 1 tab [id number] PRN SL CHEST PAIN ; Start 05/23/16 at 16:00 Sevelamer Carbonate (Renvela) 1 gm TID PO Last administered on 05/28/16 11:20 ; Admin Dose 1 GM; Start 05/23/16 at 21:00 Ticagrelor (Brilinta) 90 mg Q12 PO Last administered on 05/28/16 11:36; Admin Dose 90 MG; Start 05/23/16 at 21:00 Miscellaneous Information 1 ea NOTE XX ; Start 05/23/16 at 16:00 Glucose (Glutose) 15 gm Q15M PRN PO DECREASED GLUCOSE; Start 05/23/16 at 16:00 Glucose (Glutose) 22.5 gm Q15M PRN PO DECREASED GLUCOSE; Start 05/23/16 at 16: 00 Dextrose (D50w Syringe) 25 ml Q15M PRN IV DECREASED GLUCOSE; Start 05/23/16 at 16:00 Dextrose (D50w Syringe) 50 ml Q15M PRN IV DECREASED GLUCOSE; Start 05/23/16 at 16:00 Glucagon (Glucagen) 1 mg Q15M PRN IM DECREASED GLUCOSE; Start 05/23/16 at 16:00 Glucose (Glutose) 15 gm Q15M PRN BUCCAL DECREASED GLUCOSE; Start 05/23/16 at 16 :00 Clonidine (Catapres) 0.1 mg Q6H PRN PO ELEVATED SYSTOLIC BP Last administered on 05/28/16 05:10; Admin Dose 0.1 MG; Start 05/24/16 at 05:05 Hydralazine HCl (Apresoline) 25 mg Q6H PRN PO ELEVATED BLOOD PRESSURE Last administered on 05/27/16 23:16; Admin Dose 25 MG; Start 05/24/16 at 09:30 Famotidine (Pepcid) 20 mg Q24H PO Last administered on 05/27/16 21:48; Admin Dose 20 MG; Start 05/26/16 at 21:00 Lisinopril (Zestril) 20 mg BID PO Last administered on 05/28/16 11:23; Admin Dose 20 MG; Start 05/26/16 at 21:00 Insulin Glargine (Lantus) 15 unit QHS SC Last administered on 05/27/16 21:52; Admin Dose 15 UNIT; Start 05/26/16 at 21:00 Amlodipine Besylate (Norvasc) 5 mg BID PO Last administered on 05/28/16 11:24 ; Admin Dose 5 MG; Start 05/27/16 at 21:00 Metoprolol Tartrate (Lopressor) 50 mg BID PO Last administered on 05/28/16 11: 23; Admin Dose 50 MG; Start 05/27/16 at 21:00 CRIS BERNARD MD May 28, 2016 14:00
[2016-05-28] MEDS ORDERED: LISI20TA11 PO (15:50)
[2016-05-28] MEDS ORDERED: METO-429 PO (15:50)
== END 2016-05-28 17:27 | disposition home or self-care (01) | DRG 291 ==
LOC: MS4 14:43
PROVIDERS: ADMIT Internal Medicine; ATTEND Internal Medicine
PROC: 5A1D60Z (ICD-10-PCS; 2016-05-24)
PROC: 0W993ZZ Drainage of Right Pleural Cavity, Percutaneous Approach (ICD-10-PCS; principal; 2016-05-25)
DX: I13.2 Hypertensive heart and chronic kidney disease with heart failure and with stage 5 chronic kidney disease, or end stage renal disease (principal); I50.33 Acute on chronic diastolic (congestive) heart failure; J90 Pleural effusion, not elsewhere classified; N18.6 End stage renal disease; I25.10 Atherosclerotic heart disease of native coronary artery without angina pectoris; D63.1 Anemia in chronic kidney disease; E11.22 Type 2 diabetes mellitus with diabetic chronic kidney disease; E78.5 Hyperlipidemia, unspecified; E11.649 Type 2 diabetes mellitus with hypoglycemia without coma; Z95.1 Presence of aortocoronary bypass graft; Z95.0 Presence of cardiac pacemaker; Z95.5 Presence of coronary angioplasty implant and graft; Z79.4 Long term (current) use of insulin; Z99.2 Dependence on renal dialysis; Z79.899 Other long term (current) drug therapy
CPT/HCPCS: 32555; 36430; 71010; 78452; 80048; 80053; 80061; 82550; 82553; 82962; 84484; 85025; 85049; 85610; 85670; 85730; 86850; 86900; 86901; 86920; 90935; 93005; 93017; 93306; A9500; A9505; J0886; J1644; J1815; J2270; J2785; J7040; P9016

== ENCOUNTER 2016-06-13 13:57 | Inpatient (IN) | payer MEDICARE, OTHER ==
[~2016-06-13] VITALS: Ht 172.7 cm; Wt 74.6 kg
[~2016-06-13 13:57] MED LIST changes: -FURO40TA4 PO; -LEVO500T72 PO; +METO-429 PO; -METO-448 PO
[2016-06-13] MEDS ORDERED: CEFEPIME 2GM/50 ML (PMX) 50 ML IVPB STA (14:42)
[2016-06-13] MEDS ORDERED: LIDOCAINE 1% (MDV) 20 ML INJ SC ONE (15:00)
[2016-06-13] MEDS ORDERED: VANCOMYCIN 1 GM (PMX) 250 ML IVPB ONE (15:00)
[2016-06-13] MEDS ORDERED: ONDANSETRON 4 MG INJ IV PRN (15:00)
[2016-06-13] MEDS ORDERED: ACETAMINOPHEN 325 MG TAB PO PRN (15:00)
--- NOTE | 2016-06-13 15:00 | RADRPT ---
PROCEDURE: XR Chest. CLINICAL INDICATION: Shortness of breath. TECHNIQUE: Single frontal view of the chest was obtained COMPARISON: Chest x-ray 05/25/2016 0447 hours. FINDINGS: There is a moderate-sized right pleural effusion which increased in size compared to the earlier jeb dy. There is fluid in the minor and major fissure. A mediastinotomy was performed. There is a dual-chamber cardiac pacemaker with electrode leads proj ecting at the level of the right atrium and right ventricle. No pneumothorax is identified. IMPRESSION: 1. Interval increase in the size of the right pleural effusion when compared to 05/25/2016 with comp ressive atelectasis or infiltrate in the right middle and right lower lobe. 2. There is a small left pleural effusion. 3. Dual chamber cardiac pacemaker with electrode leads at the level of the right atrium and right v entricle. 4. Status post median sternotomy. 5. Atherosclerotic vascular calcifications in the aortic arch. RPTAT:AAJJ Physician Camille Date Time Electronically viewed and signed by Physician Camille on 06/13/2016 15:00 ROSA/
[2016-06-13 15:21] LABS: ADD SCAN DIFF NO
[2016-06-13 15:24] LABS: BASOPHIL # 0.1 10^3/ul (0.0-0.1); BASOPHILS % 1.1 % (0.0-2.0); EOSINOPHILS # 0.2 10^3/ul (0.0-0.5); EOSINOPHILS % 2.2 % (0.0-7.0); HEMATOCRIT 33.3 % (42.0-52.0); HEMOGLOBIN 10.5 g/dl (14.0-18.0); LYMPHOCYTES # 0.9 10^3/ul (0.8-2.9); LYMPHOCYTES % 11.8 % (15.0-51.0); MEAN CORPUSCULAR HEMOGLOBIN 32.4 pg (29.0-33.0); MEAN CORPUSCULAR HGB CONC 31.5 g/dl (32.0-37.0); MEAN CORPUSCULAR VOLUME 102.8 fl (82.0-101.0); MEAN PLATELET VOLUME 9.7 fl (7.4-10.4); MONOCYTE # 0.7 10^3/ul (0.3-0.9); MONOCYTES % 9.2 % (0.0-11.0); NEUTROPHIL # 5.9 10^3/ul (1.6-7.5); NEUTROPHILS % 75.4 % (39.0-77.0); PLATELET COUNT 233 10^3/UL (140-415); RED BLOOD COUNT 3.24 10^6/ul (4.70-6.10); RED CELL DISTRIBUTION WIDTH 15.7 % (11.5-14.5); WHITE BLOOD COUNT 7.9 10^3/ul (4.8-10.8)
[2016-06-13 15:33] LABS: INR 1.02; PROTIME 13.4 Sec (12.2-14.2)
[2016-06-13] MEDS ORDERED: FAMO20TA18 PO (15:33)
[2016-06-13 15:34] LABS: PARTIAL THROMBOPLASTIN TIME 30.9 Sec (25.0-35.0)
[2016-06-13] MEDS ORDERED: CALC667C PO (15:34)
[2016-06-13] MEDS ORDERED: ATOR10TA65 PO (15:35)
[2016-06-13] MEDS ORDERED: SEVE800T7 PO (15:36)
[2016-06-13 15:39] LABS: POTASSIUM 4.2 mmol/L (3.5-5.1)
[2016-06-13 15:41] LABS: CREATININE 8.3 mg/dl (0.61-1.24)
[2016-06-13 15:42] LABS: CALCIUM 9.4 mg/dl (8.4-10.2)
[2016-06-13] MEDS ORDERED: AMLO2.5T2 PO (15:45)
[2016-06-13] MEDS ORDERED: CHOL400T10 PO (15:45)
[2016-06-13] MEDS ORDERED: CLOP75TA4 PO (15:46)
[2016-06-13] MEDS ORDERED: ASPI-664 PO (15:46)
[2016-06-13] MEDS ORDERED: FER325 PO (15:47)
[2016-06-13] MEDS ORDERED: METO-448 PO (15:48)
[2016-06-13] MEDS ORDERED: TICA90TA PO (15:49)
[2016-06-13] MEDS ORDERED: LANT3I SC (15:49)
[2016-06-13 15:52] LABS: TROPONIN-I 0.03 ng/ml (0.00-0.12)
[2016-06-13] MEDS ORDERED: INSU100C SQ (15:52)
--- NOTE | 2016-06-13 17:09 | ERA ---
ER Documentation Chief Complaint Date/Time DATE: 06/13/16 TIME: 17:06 Chief Complaint SOB X 1 DAY HPI Patient is a 60-year-old male with renal disease and dialysis, diabetes, hypertension, and cardiac disease who presents with cough. He said that he had fluid removed from his right lung 2 weeks ago and has had shortness of breath after he was discharged. However the shortness of breath has gotten worse over the past 2 weeks. His primary doctor is Dr. Price. Upon review of old medical records this is the patient's sixth visit to the ER since 2013. ROS All systems reviewed and are negative except as per history of present illness. Medications Home Meds Reported Medications Insulin Lispro (Humalog) 100 Unit/1 Ml Cartridge, 0 SQ SLIDING SCALE Y for WITH MEALS 06/13/16 Insulin Glargine* (Lantus*) 100 Unit/Ml Soln, 18 UNIT SC QHS, #1 VIAL 06/13/16 Ticagrelor* (Brilinta*) 90 Mg Tablet, 90 MG PO Q12, TAB 06/13/16 Metoprolol Tartrate* (Lopressor*) 25 Mg Tab, 25 MG PO BID, #60 TAB 06/13/16 Ferrous Sulfate* (Ferrous Sulfate*) 325 Mg Tabec, 325 MG PO BID, TAB 06/13/16 Clopidogrel Bisulfate* (Clopidogrel Bisulfate*) 75 Mg Tablet, 75 MG PO DAILY, # 30 TAB 06/13/16 Aspirin* (Aspirin* EC) 81 Mg Tablet.dr, 81 MG PO DAILY, TAB 06/13/16 Cholecalciferol* (Vitamin D*) 400 Unit Tablet, 400 UNIT PO DAILY, TAB 06/13/16 Amlodipine Besylate* (Norvasc*) 2.5 Mg Tablet, 5 MG PO DAILY, TAB 06/13/16 Sevelamer Carbonate* (Renvela*) 800 Mg Tablet, 0.8 GM PO WITH MEALS, TAB 06/13/16 Atorvastatin Calcium (Atorvastatin Calcium) 10 Mg Tablet, 10 MG PO QHS, #30 TAB 06/13/16 Calcium Acetate* (Calcium Acetate*) 667 Mg Capsule, 667 MG PO WITH MEALS for 90 Days, #270 CAP 06/13/16 Famotidine* (Famotidine*) 20 Mg Tablet, 20 MG PO DAILY, #30 TAB 2/10/17 Discontinued Reported Medications Ticagrelor* (Brilinta*) 90 Mg Tablet, 90 MG PO Q12, TAB 04/16/15 Hydrocodone Bit-Acetaminophen* (Hydrocodone-APAP*) 5-325 Tablet, 1 TAB PO Q4H Y for PAIN LEVEL 1-5, TAB 10/28/13 Nitroglycerin (Nitrostat) 0.4 Mg Subl, 0.4 MG SL Q5MIN Y for CHEST PAIN, BOTTLE 10/28/13 Atorvastatin Calcium (Atorvastatin Calcium) 10 Mg Tab, 10 MG PO QHS, TAB 10/28/13 Amlodipine Besylate* (Amlodipine Besylate*) 5 Mg Tablet, 5 MG PO DAILY, TAB 10/28/13 Sitagliptin* (Januvia*) 25 Mg Tablet, 25 MG PO DAILY, TAB 10/28/13 Aspirin* (Aspirin* Chew) 81 Mg Tab.chew, 81 MG PO DAILY, TAB.CHEW 10/28/13 Sevelamer Carbonate* (Renvela*) 800 Mg Tablet, 1 TAB PO TID 08/31/13 Insulin Glargine,Hum.rec.anlog (Lantus Solostar) 100 Units/Ml Pen, 20 UNITS SQ QHS 08/31/13 Discontinued Scripts Lisinopril* (Lisinopril*) 20 Mg Tablet, 20 MG PO BID for 30 Days, TAB Prov:CECILIA DAMICO 05/28/16 Metoprolol Tartrate* (Lopressor*) 50 Mg Tab, 50 MG PO BID for 30 Days, TAB Prov:JASON DAMICOA 05/28/16 Allergies Allergies: Coded Allergies: No Known Allergy (Unverified , 06/13/16) PMhx/Soc History of Surgery: Yes (PACEMAKER , CABG , STENT X 3 , FISTULA RUE ) Anesthesia Reaction: No Hx Neurological Disorder: No Hx Respiratory Disorders: No Hx Cardiac Disorders: Yes (HTN , VT ) Hx Psychiatric Problems: No Hx Miscellaneous Medical Probl: Yes (DM , ESRD ) Hx Alcohol Use: No Hx Substance Use: No Hx Tobacco Use: No Smoking Status: Never smoker FmHx Family History: diabetes Physical Exam Vitals Vital Signs Date Time Temp Pulse Resp B/P Pulse Ox O2 Delivery O2 Flow Rate FiO2 06/13/16 15:05 70 18 195/73 97 Nasal Cannula 2.0 06/13/16 14:40 Nasal Cannula 2 2/10/17 13:59 99.8 89 22 179/75 90 Physical Exam Const: Mild shortness of breath Head: Atraumatic Eyes: Normal Conjunctiva ENT: Normal External Ears, Nose and Mouth. Neck: Full range of motion..~ No meningismus. Resp: Decreased breath sounds bilaterally Cardio: Regular rate and rhythm, no murmurs Abd: Soft, non tender, non distended. Normal bowel sounds Skin: No petechiae or rashes Back: No midline or flank tenderness Ext: No cyanosis, or edema Neur: Awake and alert Psych: Normal Mood and Affect Result Diagram: 06/13/16 1500 06/13/16 1500 Results 24 hrs Laboratory Tests Test 06/13/16 15:00 Activated Partial Thromboplast Time 30.9Sec Anion Gap 19 Basophils # 0.110^3/ul Basophils % 1.1% Blood Urea Nitrogen 63mg/dl Calcium Level 9.4mg/dl Carbon Dioxide Level 26mmol/L Chloride Level 100mmol/L Creatinine 8.30mg/dl Eosinophils # 0.210^3/ul Eosinophils % 2.2% Glucose Level 137mg/dl Hematocrit 33.3% Hemoglobin 10.5g/dl INR International Normalized Ratio 1.02 Lactic Acid Level 1.0mmol/L Lymphocytes # 0.910^3/ul Lymphocytes % 11.8% Mean Corpuscular Hemoglobin 32.4pg Mean Corpuscular Hemoglobin Concent 31.5g/dl Mean Corpuscular Volume 102.8fl Mean Platelet Volume 9.7fl Monocytes # 0.710^3/ul Monocytes % 9.2% Neutrophils # 5.910^3/ul Neutrophils % 75.4% Nucleated Red Blood Cells # 0.010^3/ul Nucleated Red Blood Cells % 0.0/100WBC Platelet Count 11041^3/UL Potassium Level 4.2mmol/L Prothrombin Time 13.4Sec Prothrombin Time Ratio 1.0 Red Blood Count 3.2410^6/ul Red Cell Distribution Width 15.7% Sodium Level 141mmol/L Troponin I 0.030ng/ml White Blood Count 7.910^3/ul Current Medications Medications (Trade) Dose Ordered Sig/Meka Route PRN Reason Start Time Stop Time Status Last Admin Dose Admin Cefepime HCl 50 ml @ 100 mls/hr ONCE STAT IVPB 06/13/16 14:42 06/13/16 15:11 DC Vancomycin HCl (Vancocin) 250 ml @ 125 mls/hr ONCE ONCE IVPB 06/13/16 15:00 06/13/16 16:59 DC Ondansetron HCl (Zofran Inj) 4 mg BRIDGE ORDER PRN IV NAUSEA AND/OR VOMITING 06/13/16 15:00 06/14/16 14:59 Acetaminophen (Tylenol Tab) 650 mg ER BRIDGE PRN PO MILD PAIN/FEVER 06/13/16 15:00 06/14/16 14:59 Lidocaine (Xylocaine 1% (Mdv) 20 ml) 20 ml ONCE ONCE SC 06/13/16 15:00 06/13/16 15:01 DC Procedures/MDM Chest x-ray shows right lower lobe pneumonia and pleural effusion per radiology. EKG read by me: Rate/Rhythm: Regular rate and rhythm at a normal rate Intervals: Normal Impression: No evidence of ischemia or arrhythmia Patient is a 60-year-old male with multiple cardiac risk factors who presents with shortness of breath. He was also found to have an x-ray showing pneumonia and pleural effusion. At this point I believe the patient requires inpatient admission as he did have hypoxia as well. The patient will be given vancomycin and cefepime for pneumonia as he was recently admitted and I will consider this healthcare associated pneumonia. I spoke with Dr. Price who can admit the patient to a medical surgical bed. The patient may require a thoracentesis while admitted. The patient understands the plan is okay for admission at this time. At this point I doubt sepsis as the patient has no service criteria and a normal lactic acid at this time. The patient has anemia but does not require transfusion. The patient has chronic renal failure with a normal potassium. Departure Diagnosis: Primary Impression: Shortness of breath Additional Impressions: Pleural effusion Pneumonia Qualified Code: J18.9 - Pneumonia of right lower lobe due to infectious organism Chronic renal failure Qualified Code: N18.9 - Chronic renal failure, unspecified stage Anemia Qualified Code: D64.9 - Anemia, unspecified type Condition: JOYCE Bales MD Jun 13, 2016 17:09
--- NOTE | 2016-06-13 17:27 | RADRPT ---
PROCEDURE: XR Chest 1 view. CLINICAL INDICATION: Status post PICC line placement TECHNIQUE: AP views of the chest were obtained. COMPARISON: June 13, 2016 at 02:46 p.m. FINDINGS: The heart is large. Calcified atherosclerosis is noted in the aorta. Median sternotomy wires overli e the heart. Left-sided dual chamber pacemaker has its leads over the heart and appears stable. Le ft-sided PICC line is visualized into the proximal superior vena cava. Distal tip of the PICC line is obscured by pacemaker leads in the superior vena cava. Patchy infiltrates throughout the right l darius appear to have increased. Moderate right pleural effusion is identified. Scattered atelectasis is seen throughout the left lung. Small left pleural effusion with associated basilar atelectasis/ infiltrate is stable. Osseous structures are osteopenic, but grossly intact. IMPRESSION: Cardiomegaly with calcified atherosclerosis in the aorta. Left-sided PICC line that has its distal end in the superior vena cava. The tip of the PICC line is obscured by pacemaker leads in the superior vena cava. An oblique image could be helpful to determi ne the exact location of the tip of the PICC line. Interval increase in patchy infiltrates throughout the right lung combined with moderate pleural eff usion. Scattered atelectasis throughout the left lung. Stable small left pleural effusion with associated basilar atelectasis/infiltrate. RPTAT: AA .Jason Samano MD, Date Time Electronically viewed and signed by .Jason Samano MD, on 06/13/2016 17:27 .P/
[2016-06-13] MEDS ORDERED: ONDANSETRON 4 MG INJ IV STA (18:52)
[2016-06-13 19:00] VITALS: TEMP 99.8
[2016-06-13] MEDS ORDERED: hydrALAzine 20 MG INJ IV ONE (19:00)
--- NOTE | 2016-06-13 19:44 | RADRPT ---
PROCEDURE: Ultrasound proximal upper extremity for PICC placement CLINICAL INDICATION: PICC placement TECHNIQUE: Sonographic evaluation of the proximal left upper extremity vessels was performed utilizi ng a high-frequency linear transducer. COMPARISON: None available FINDINGS: Limited evaluation of the proximal upper extremity for vascular access for PICC placement. Grossly, no abnormality is seen. IMPRESSION: 1. Unremarkable limited proximal left upper extremity ultrasound for PICC placement. RPTAT: PP .Shola Hutton MD, MD Date Time Electronically viewed and signed by .Shola Hutton MD, MD on 06/13/2016 19:44 .R/
[2016-06-13 21:45] VITALS: Ht 172.7 cm; Wt 74.6 kg
[2016-06-13 22:05] VITALS: BP 195/72; RESP 20
[2016-06-14] VITALS (21 sets, daily range): BP systolic 130–223; BP diastolic 63–86; PULSE 69–83; RESP 18–22
[2016-06-14] MEDS ORDERED: GLUCOSE GEL 15 GRAM TUBE BUCCAL PRN (00:30)
[2016-06-14] MEDS ORDERED: VANCOMYCIN IV PER PHARMACY XX SCH (00:30)
[2016-06-14] MEDS ORDERED: DEXTROSE 50% 50 ML SYRINGE IV PRN (00:30)
[2016-06-14] MEDS ORDERED: GLUCAGON 1 MG INJ IM PRN (00:30)
[2016-06-14] MEDS ORDERED: GLUCOSE GEL 15 GRAM TUBE PO PRN ×2 (00:30)
[2016-06-14] MEDS: ACCU-CHEK XX SCH ×5 (02:00→20:39)
[2016-06-14] MEDS ORDERED: ACCU-CHEK XX SCH (02:00)
[2016-06-14] MEDS: ACETAMINOPHEN 500 MG TAB PO PRN ×2 (05:21→15:19)
[2016-06-14] MEDS: hydrALAzine 20 MG INJ IV PRN ×3 (05:22→15:10)
[2016-06-14 05:30] LABS: BASOPHIL # 0.1 10^3/ul (0.0-0.1); BASOPHILS % 1.3 % (0.0-2.0); EOSINOPHILS # 0.2 10^3/ul (0.0-0.5); EOSINOPHILS % 3.1 % (0.0-7.0); HEMATOCRIT 31.7 % (42.0-52.0); HEMOGLOBIN 9.9 g/dl (14.0-18.0); LYMPHOCYTES # 1.2 10^3/ul (0.8-2.9); LYMPHOCYTES % 15.5 % (15.0-51.0); MEAN CORPUSCULAR HEMOGLOBIN 32.4 pg (29.0-33.0); MEAN CORPUSCULAR HGB CONC 31.2 g/dl (32.0-37.0); MEAN CORPUSCULAR VOLUME 103.6 fl (82.0-101.0); MEAN PLATELET VOLUME 9.7 fl (7.4-10.4); MONOCYTE # 0.9 10^3/ul (0.3-0.9); MONOCYTES % 11.4 % (0.0-11.0); NEUTROPHIL # 5.1 10^3/ul (1.6-7.5); NEUTROPHILS % 68.3 % (39.0-77.0); PLATELET COUNT 236 10^3/UL (140-415); RED BLOOD COUNT 3.06 10^6/ul (4.70-6.10); RED CELL DISTRIBUTION WIDTH 15.5 % (11.5-14.5); WHITE BLOOD COUNT 7.5 10^3/ul (4.8-10.8)
[2016-06-14] MEDS ORDERED: FAMOTIDINE 20 MG TAB PO SCH ×3 (06:00→09:00)
[2016-06-14] MEDS: INSULIN ASPART [NOVOLOG] 3 ML PEN SC SCH ×4 (08:00→20:24)
[2016-06-14] MEDS: FERROUS SULFATE (EC) 325 MG TAB PO SCH ×2 (08:49→20:25)
[2016-06-14] MEDS: SEVELAMER CARBONATE 0.8 GM PKT PO SCH ×3 (08:49→18:15)
[2016-06-14] MEDS: ASPIRIN (EC) 81 MG TAB PO SCH (08:50)
[2016-06-14] MEDS: CALCIUM ACETATE 667 MG CAP PO SCH ×3 (08:50→18:15)
[2016-06-14] MEDS: CHOLECALCIFEROL 400 UNITS TAB PO SCH (08:50)
[2016-06-14] MEDS: CLOPIDOGREL 75 MG TAB PO SCH (08:50)
[2016-06-14] MEDS: FAMOTIDINE 20 MG TAB PO SCH (08:51)
[2016-06-14] MEDS: AMLODIPINE 5 MG TAB PO SCH ×4 (08:52→20:25)
[2016-06-14] MEDS: METOPROLOL 25 MG TAB PO SCH ×4 (08:52→20:27)
[2016-06-14] MEDS: HEPARIN 5,000 UNIT/0.5 ML SYG SC SCH ×2 (08:53→20:29)
[2016-06-14] MEDS ORDERED: VANCOMYCIN 1 GM (PMX) 250 ML IVPB SCH (09:00)
[2016-06-14] MEDS ORDERED: AMLODIPINE 5 MG TAB PO SCH (09:00)
--- NOTE | 2016-06-14 09:05 | HP ---
DATE OF ADMISSION: 06/13/2016 CHIEF COMPLAINT: Shortness of breath, cough. HISTORY OF PRESENT ILLNESS: The patient is a 60-year-old gentleman well known to me from a previous admission. The patient has history of coronary artery disease status post CABG in 2010, cardiac st ent placement in 2013, incidentally on hemodialysis, diabetic nephropathy, hypertension who was rece ntly admitted with fluid overload. The patient also has history of recurrent pleural effusion requi ring thoracentesis. The patient came to the ER with increasing shortness of breath and cough. The patient denied any fever or chills. No reported abdominal pain. No reported nausea or vomiting, no reported leg edema. The patient denied any abdominal pain. No reported hemoptysis, no reported he adache, dizziness, syncope. The patient reported the cough was dry. The patient did not have any s ore throat. No reported vomiting or diarrhea. No reported dysuria or hematuria. The patient was s een in the ER and chest x-ray revealed right-sided infiltrate and pleural effusion. The patient als o had uncontrolled blood pressure of 195/73. The patient did have a low grade temperature in the ER of 99.8, however, the patient's white count was 7.9, potassium was 4.2. The patient was given IV v ancomycin and cefepime due to recent hospital admission and is being admitted for further evaluation and management. I spoke with the patient's dural mechanic, Dr. Quique Saunders, and I was told that Dr. Cruz is covering him, and the patient is due for hemodialysis tomorrow. REVIEW OF SYSTEMS: A total of 10 systems were reviewed and all pertinent positive and negative find ings have been described in the HPI. PAST MEDICAL HISTORY: As stated above. The patient, as mentioned above, had recurrent pleural effu leighton and the last one was on 05/25/2016. The patient also had a recent nuclear stress test done [facility] was negative. The patient had a chest CT scan done in 2014, which has revealed occluded right mi ddle lobe nodule lesions measuring 2.5 x 1.3 cm with adjacent satellite nodules, multiple additional subcentimeter pulmonary arteries were also seen at that time. During that admission the patient pan d a pulmonary evaluation. Pleural fluid cytology was negative for malignant cells. Will repeat [facility] st CT scan. ALLERGIES: NONE. MEDICATIONS: List reviewed. FAMILY HISTORY: Positive for diabetes and hypertension. SOCIAL HISTORY: No smoking or alcohol. PAST SURGICAL HISTORY: As mentioned above, the patient is status post CABG in 2010. PHYSICAL EXAMINATION: GENERAL: The patient is conscious, awake, alert. VITAL SIGNS: Temperature 99.8, pulse 70, respirations 18, blood pressure 195/73, pulse oximet ry 97% on 2 liters nasal cannula. HEENT: Atraumatic, normocephalic. Conjunctivae and lids normal. Oropharynx clear. Extraocular mo vements intact. NECK: Supple. No mass, no thyromegaly. CHEST: Revealed diminished air entry on the right base. No use of accessory muscles. CARDIOVASCULAR: Regular rate and rhythm. S1, S2 normal. No murmur, gallop, or rub. ABDOMEN: Soft, nondistended, nontender. No palpable mass. No pulsatile mass. EXTREMITIES: No leg edema. NEUROLOGIC: The patient is awake, alert, fairly oriented. SKIN: Without acute rash, clubbing or cyanosis. LABORATORY DATA: WBC 7.9, hemoglobin 10.5, platelets 233. Sodium 148, potassium 4.2, BUN 63, creat inine 8.3. Lactic acid 1. Troponin 0.03. Admission chest x-ray revealed interval increase in the size of right pleural effusion with compress jayme atelectasis or infiltrate. IMPRESSION: 1. Possible diastolic heart failure with uncontrolled blood pressure. 2. Possible healthcare acquired pneumonia. 3. Recurrent pleural effusion. 4. Coronary artery disease, status post coronary artery bypass graft. 5. Permanent pacemaker placement. 6. End-stage renal disease. 7. Uncontrolled hypertension. 8. Dyslipidemia. 9. Diabetes. PLAN: 1. The patient is currently admitted on telemetry floor. The patient will be started on IV vancomy lilibeth and cefepime and will need hemodialysis. The patient will be continued on Lantus and sliding sc gomez insulin. The patient will also be continued on aspirin, Plavix, Amlodipine, Lipitor, metoprolo l, , Renvela, Pepcid, vitamin D. 2. Will obtain chest CT scan. 3. The patient is unable to produce sputum; therefore will empirically treat with antibiotic. 4. Will use heparin for deep venous thrombosis prophylaxis. 5. The patient most likely will also require thoracentesis for further workup and will also obtain pulmonary consultation due to unknown etiology of his recurrent pleural effusion and history of pulm onary nodule on chest CT scan back in 2014. Further recommendations depend on hospital course. Plan of care discussed with the patient's . Dictated By: EVA WHEELER/MANJIT Conf#: [id number] DID#: [id number]
--- NOTE | 2016-06-14 10:10 | RADRPT ---
PROCEDURE: CT Chest without contrast. CLINICAL INDICATION: Dyspnea. Pneumonia and pleural effusions. TECHNIQUE: CT scan of the chest without contrast was performed on a multidetector high-resolution CT scanner. Coronal and sagittal reformatted images were obtained from the axial source images. The total exam CTDI equals 7.57 mGy and the total exam DLP equals 293.77 mGy-cm. One or more of the following dose reduction techniques were used: - Automated exposure control. - Adjustment of the mA and/or kV according to patient size. - Use of iterative reconstruction technique. COMPARISON: Chest ultrasound and x-ray dated 06/13/2016. Chest CT dated 05/02/2015. FINDINGS: There is a large loculated right pleural effusion with associated compressive atelectasis of the rig ht lung and interlobular septal thickening at the right lung apex. There is similar consolidation wi thin the right middle lobe. There is a moderate left pleural effusion with associated dependent com pressive atelectasis. There is no pneumothorax. The central tracheobronchial tree is clear. There is mild anasarca. There is mildly enlarged without pericardial thickening or effusion. There has been prior median st ernotomy and CABG. A left-sided cardiac pacer device in place. There is a left-sided PICC tip with in the low SVC. No axillary adenopathy. There are enlarged paratracheal and subcarinal lymph nodes. The visualized portions of the upper abdomen are unremarkable. There are no concerning osseous lesio ns. IMPRESSION: 1. Large loculated left pleural effusion with associated compressive atelectasis throughout the rig ht lung, increased in size when compared with the exam from 05/02/2015. Similar consolidation withi n the right middle lobe. Moderate left effusion, new when compared the exam from 05/02/2015. Mild an asarca, also new when compared the prior. 2. Mild cardiomegaly. 3. Nonspecific enlarged paratracheal and subcarinal lymph nodes, new when compared the prior exam. 4. Multivessel coronary artery calcifications and atherosclerotic changes of the aorta. RPTAT: EE .Blayne Reyes MD, MD Date Time Electronically viewed and signed by .Blayne Reyes MD, on 06/14/2016 10:09 .P/
[2016-06-14] MEDS ORDERED: NITROGLYCERIN 2% 1 GM OINT PKT TD ONE (15:30)
[2016-06-14] MEDS ORDERED: hydrALAzine 20 MG INJ IV ONE (16:00)
--- NOTE | 2016-06-14 16:15 | PN ---
Date/Time of Note Date/Time of Note DATE: 06/14/16 TIME: 16:03 Assessment/Plan VTE Prophylaxis VTE Prophylaxis Intervention: other Lines/Catheters IV Catheter Type (from Nrs): PICC Line Central line still needed: Yes Urinary Cath still in place: No Assessment/Plan Assessment/Plan 1. Possible diastolic heart failure with uncontrolled blood pressure. -transfer to telemetry floor. 2. Possible healthcare acquired pneumonia. -IV vancomycin and cefepime 3. Recurrent pleural effusion., history of pulmonary nodule on chest CT scan back in 2014. - per pulmonary - thoracentesis 4. Coronary artery disease, status post coronary artery bypass graft. 5. Permanent pacemaker placement. 6. End-stage renal disease. - HD 7. Uncontrolled hypertension. - continued on aspirin, Plavix, Amlodipine, Lipitor, metoprolol, 8. Dyslipidemia. 9. Diabetes.- Glycemic control Heparin for deep venous thrombosis prophylaxis. Further recommendations depend on hospital course. Plan of care discussed with the patient's Dr Price/ /staff Subjective 24 Hr Interval Summary Free Text/Dictation Mild distress due to shortness sob breath due to pleural effusion- thoracentesis , dw staff Constitutional: requiring O2 Eyes: no complaints ENT: no complaints Respiratory: shortness of breath Cardiovascular: no complaints Gastrointestinal: no complaints Genitourinary: no complaints Musculoskeletal: no complaints Skin: no complaints Neurologic: no complaints Endocrine: no complaints Lymphatic: no complaints Psychological: no complaints Immunologic: no complaints Exam/Review of Systems Vital Signs Vitals Vital Signs Date Time Temp Pulse Resp B/P Pulse Ox O2 Delivery O2 Flow Rate FiO2 06/14/16 13:30 80 135/64 06/14/16 13:15 18 06/14/16 08:00 98.5 92 06/14/16 08:00 Nasal Cannula 2.0 Intake and Output 06/13/16 06/13/16 06/14/16 14:59 22:59 06:59 Intake Total 240 ml Balance 240 ml Exam Constitutional: alert, oriented, well developed Psych: no complaints Head: atraumatic Eyes: EOMI, PERRL, nl sclera ENMT: nl external ears & nose Neck: supple Respiratory: diminished breath sounds Cardiovascular: nl pulses Gastrointestinal: non-tender, soft Musculoskeletal: nl extremities to inspection Extremities: normal pulses Neurological: nl mental status, nl speech Skin: nl turgor Lymph: nontender Results Result Diagram: 06/14/16 0437 06/13/16 1500 Results 24 hrs Laboratory Tests Test 06/13/16 17:55 06/13/16 22:06 06/13/16 22:19 06/14/16 03:55 Lactic Acid Level 0.8 0.9 Bedside Glucose 79 118 Test 06/14/16 04:37 06/14/16 08:11 06/14/16 12:13 Basophils # 0.1 Basophils % 1.3 Eosinophils # 0.2 Eosinophils % 3.1 Hematocrit 31.7 L Hemoglobin 9.9 L Lymphocytes # 1.2 Lymphocytes % 15.5 Mean Corpuscular Hemoglobin 32.4 Mean Corpuscular Hemoglobin Concent 31.2 L Mean Corpuscular Volume 103.6 H Mean Platelet Volume 9.7 Monocytes # 0.9 Monocytes % 11.4 H Neutrophils # 5.1 Neutrophils % 68.3 Nucleated Red Blood Cells # 0.0 Nucleated Red Blood Cells % 0.0 Platelet Count 236 Red Blood Count 3.06 L Red Cell Distribution Width 15.5 H White Blood Count 7.5 Bedside Glucose 110 169 Medications Medications Current Medications IV Flush (NS 10 ml) 10 ml PRN PRN IV FLUSH LINE; Start 06/13/16 at 19:00 Aspirin (Halfprin) 81 mg DAILY PO Last administered on 06/14/16 08:50; Admin Dose 81 MG; Start 06/14/16 at 09:00 Atorvastatin Calcium (Lipitor) 10 mg QHS PO ; Start 06/14/16 at 21:00 Cholecalciferol (Vitamin D) 400 units DAILY PO Last administered on 06/14/16 08:50; Admin Dose 400 UNITS; Start 06/14/16 at 09:00 Clopidogrel Bisulfate (plaVIX) 75 mg DAILY PO Last administered on 06/14/16 08 :50; Admin Dose 75 MG; Start 06/14/16 at 09:00 Ferrous Sulfate (Ferrous Sulfate (Ec)) 325 mg BID PO Last administered on 08:49; Admin Dose 325 MG; Start 06/14/16 at 09:00 Insulin Glargine (Lantus) 18 unit QHS SC ; Start 06/14/16 at 21:00 Metoprolol Tartrate (Lopressor) 25 mg BID PO Last administered on 06/14/16 15: 34; Admin Dose 25 MG; Start 06/14/16 at 09:00 Hydralazine HCl (Apresoline) 10 mg Q4H PRN IV for SBP more than 170 Last administered on 06/14/16 15:10; Admin Dose 10 MG; Start 06/14/16 at 00:00 Acetaminophen (Tylenol Tab) 500 mg Q4H PRN PO PAIN AND OR ELEVATED TEMP Last administered on 06/14/16 15:19; Admin Dose 500 MG; Start 06/14/16 at 00:00 Heparin Sodium (Porcine) (Heparin (5000 Units/0.5 ml)) 5,000 unit BID SC Last administered on 06/14/16 08:53; Admin Dose 5,000 UNIT; Start 06/14/16 at 09:00 Vancomycin HCl (Vanco Iv Per Pharmacy) PER PHARMACY DOSING NOTE XX ; Start 06/14 at 00:30 Miscellaneous Information 1 ea NOTE XX ; Start 06/14/16 at 00:30 Glucose (Glutose) 15 gm Q15M PRN PO DECREASED GLUCOSE; Start 06/14/16 at 00:30 Glucose (Glutose) 22.5 gm Q15M PRN PO DECREASED GLUCOSE; Start 06/14/16 at 00: 30 Dextrose (D50w Syringe) 25 ml Q15M PRN IV DECREASED GLUCOSE; Start 06/14/16 at 00:30 Dextrose (D50w Syringe) 50 ml Q15M PRN IV DECREASED GLUCOSE; Start 06/14/16 at 00:30 Glucagon (Glucagen) 1 mg Q15M PRN IM DECREASED GLUCOSE; Start 06/14/16 at 00:30 Glucose (Glutose) 15 gm Q15M PRN BUCCAL DECREASED GLUCOSE; Start 06/14/16 at 00 :30 Diagnostic Test (Pha) (Accucheck) 1 ea 02 XX ; Start 06/14/16 at 02:00 Famotidine (Pepcid) 20 mg DAILY PO Last administered on 06/14/16 08:51; Admin Dose 20 MG; Start 06/14/16 at 09:00 Miscellaneous Information (*Rx Drug Level Order Reminder*) RANDOM VANCOMYCIN LEVEL 2... ONCE ONCE XX ; Start 06/15/16 at 05:00; Stop 06/15/16 at 05:01 Amlodipine Besylate (Norvasc) 5 mg BID PO ; Start 06/14/16 at 13:30 Clonidine (Catapres) 0.2 mg Q8 PRN PO Systolic >160; Start 06/14/16 at 13:00 Nitroglycerin (Nitroglycerin 2% Oint) 1 inch ONCE ONCE TD Last administered on 06/14/16t 15:28; Admin Dose 1 INCH; Start 06/14/16 at 15:30; Stop 06/14/16 at 15:31 Hydralazine HCl (Apresoline) 10 mg ONCE ONCE IV ; Start 06/14/16 at 16:00; Stop 06/14/16 at 16:01 Hydralazine HCl (Apresoline) 50 mg Q8 PO ; Start 06/14/16 at 22:00 PATRICIA RUEDA Jun 14, 2016 16:13
--- NOTE | 2016-06-14 19:59 | CONS ---
Date/Time of Note Date/Time of Note DATE: 06/14/16 TIME: 19:55 Assessment/Plan Assessment/Plan Problems: (1) Weakness Status: Acute (2) End stage kidney disease Status: Chronic (3) Shortness of breath Status: Acute (4) Pleural effusion Status: Chronic (5) Anemia Status: Chronic Qualifiers: Qualified Code: D64.9 - Anemia, unspecified type Additional Assessment/Plan [id number] hd stopped earlier as pt not willing bp contd elevated meds ordered f/u Consultation Date/Type/Reason Admit Date/Time Jun 13, 2016 at 14:48 Subjective hx not possible: pt critical Respiratory: shortness of breath, wheezing Cardiovascular: no complaints Gastrointestinal: no complaints Genitourinary: no complaints Musculoskeletal: no complaints Psychological: no complaints Past Medical History Medical History: congestive heart failure, coronary artery disease, diabetes, hypertension, renal disease Past Surgical History Past Surgical Hx: no surgical history, angioplasty Family History Significant Family History: no pertinent family hx Social History Alcohol Use: none Smoking Status: Never smoker Drug Use: none Exam/Review of Systems Vital Signs Vitals Vital Signs Date Time Temp Pulse Resp B/P Pulse Ox O2 Delivery O2 Flow Rate FiO2 06/14/16 18:56 Nasal Cannula 2.0 06/14/16 17:11 69 06/14/16 16:20 197/71 06/14/16 13:15 18 06/14/16 08:00 98.5 92 Intake and Output 06/13/16 06/13/16 06/14/16 15:00 23:00 07:00 Intake Total 240 ml Balance 240 ml Exam Constitutional: alert, oriented Psych: no complaints Head: normocephalic Eyes: nl conjunctiva ENMT: nl external ears & nose Neck: supple Respiratory: diminished breath sounds, wheezing Cardiovascular: regular rate and rhythm Gastrointestinal: soft Results Result Diagram: 06/14/16 0437 06/13/16 1500 Results 24 hrs Laboratory Tests Test 06/13/16 22:06 06/13/16 22:19 06/14/16 03:55 06/14/16 04:37 Lactic Acid Level 0.9 Bedside Glucose 79 118 Basophils # 0.1 Basophils % 1.3 Eosinophils # 0.2 Eosinophils % 3.1 Hematocrit 31.7 L Hemoglobin 9.9 L Lymphocytes # 1.2 Lymphocytes % 15.5 Mean Corpuscular Hemoglobin 32.4 Mean Corpuscular Hemoglobin Concent 31.2 L Mean Corpuscular Volume 103.6 H Mean Platelet Volume 9.7 Monocytes # 0.9 Monocytes % 11.4 H Neutrophils # 5.1 Neutrophils % 68.3 Nucleated Red Blood Cells # 0.0 Nucleated Red Blood Cells % 0.0 Platelet Count 236 Red Blood Count 3.06 L Red Cell Distribution Width 15.5 H White Blood Count 7.5 Test 06/14/16 08:11 06/14/16 12:13 06/14/16 16:48 06/14/16 17:37 Bedside Glucose 110 169 181 145 Medications Medications Current Medications IV Flush (NS 10 ml) 10 ml PRN PRN IV FLUSH LINE; Start 06/13/16 at 19:00 Aspirin (Halfprin) 81 mg DAILY PO Last administered on 06/14/16 08:50; Admin Dose 81 MG; Start 06/14/16 at 09:00 Atorvastatin Calcium (Lipitor) 10 mg QHS PO ; Start 06/14/16 at 21:00 Cholecalciferol (Vitamin D) 400 units DAILY PO Last administered on 06/14/16 08:50; Admin Dose 400 UNITS; Start 06/14/16 at 09:00 Clopidogrel Bisulfate (plaVIX) 75 mg DAILY PO Last administered on 06/14/16 08 :50; Admin Dose 75 MG; Start 06/14/16 at 09:00 Ferrous Sulfate (Ferrous Sulfate (Ec)) 325 mg BID PO Last administered on 08:49; Admin Dose 325 MG; Start 06/14/16 at 09:00 Insulin Glargine (Lantus) 18 unit QHS SC ; Start 06/14/16 at 21:00 Metoprolol Tartrate (Lopressor) 25 mg BID PO Last administered on 06/14/16 15: 34; Admin Dose 25 MG; Start 06/14/16 at 09:00 Hydralazine HCl (Apresoline) 10 mg Q4H PRN IV for SBP more than 170 Last administered on 06/14/16 15:10; Admin Dose 10 MG; Start 06/14/16 at 00:00 Acetaminophen (Tylenol Tab) 500 mg Q4H PRN PO PAIN AND OR ELEVATED TEMP Last administered on 06/14/16 15:19; Admin Dose 500 MG; Start 06/14/16 at 00:00 Heparin Sodium (Porcine) (Heparin (5000 Units/0.5 ml)) 5,000 unit BID SC Last administered on 06/14/16 08:53; Admin Dose 5,000 UNIT; Start 06/14/16 at 09:00 Vancomycin HCl (Vanco Iv Per Pharmacy) PER PHARMACY DOSING NOTE XX ; Start 06/14 at 00:30 Miscellaneous Information 1 ea NOTE XX ; Start 06/14/16 at 00:30 Glucose (Glutose) 15 gm Q15M PRN PO DECREASED GLUCOSE; Start 06/14/16 at 00:30 Glucose (Glutose) 22.5 gm Q15M PRN PO DECREASED GLUCOSE; Start 06/14/16 at 00: 30 Dextrose (D50w Syringe) 25 ml Q15M PRN IV DECREASED GLUCOSE; Start 06/14/16 at 00:30 Dextrose (D50w Syringe) 50 ml Q15M PRN IV DECREASED GLUCOSE; Start 06/14/16 at 00:30 Glucagon (Glucagen) 1 mg Q15M PRN IM DECREASED GLUCOSE; Start 06/14/16 at 00:30 Glucose (Glutose) 15 gm Q15M PRN BUCCAL DECREASED GLUCOSE; Start 06/14/16 at 00 :30 Diagnostic Test (Pha) (Accucheck) 1 ea 02 XX ; Start 06/14/16 at 02:00 Famotidine (Pepcid) 20 mg DAILY PO Last administered on 06/14/16 08:51; Admin Dose 20 MG; Start 06/14/16 at 09:00 Miscellaneous Information (*Rx Drug Level Order Reminder*) RANDOM VANCOMYCIN LEVEL 2... ONCE ONCE XX ; Start 06/15/16 at 05:00; Stop 06/15/16 at 05:01 Amlodipine Besylate (Norvasc) 5 mg BID PO ; Start 06/14/16 at 13:30 Clonidine (Catapres) 0.2 mg Q8 PRN PO Systolic >160 Last administered on 18:18; Admin Dose 0.2 MG; Start 06/14/16 at 13:00 Nitroglycerin (Nitroglycerin 2% Oint) 1 inch ONCE ONCE TD Last administered on 06/14/16 15:28; Admin Dose 1 INCH; Start 06/14/16 at 15:30; Stop 06/14/16 at 15:31 Hydralazine HCl (Apresoline) 10 mg ONCE ONCE IV Last administered on t 16:15; Admin Dose 10 MG; Start 06/14/16 at 16:00; Stop 06/14/16 at 16:01 Hydralazine HCl (Apresoline) 50 mg Q8 PO ; Start 06/14/16 at 22:00 ENEDINA YOUNGER MD Jun 14, 2016 19:59
[2016-06-14] MEDS: ATORVASTATIN 10 MG TAB PO SCH (20:25)
[2016-06-14] MEDS ORDERED: INSULIN GLARGINE [LANtus] 3 ML PEN SC SCH (21:00)
[2016-06-15] VITALS (12 sets, daily range): BP systolic 125–187; BP diastolic 54–86; PULSE 69–72; RESP 16–24
[2016-06-15] MEDS: PROMETHAZINE/CODEINE 5ML CUP PO PRN (00:09)
[2016-06-15] MEDS: ACCU-CHEK XX SCH ×5 (02:00→21:00)
[2016-06-15 06:15] LABS: BASOPHIL # 0.1 10^3/ul (0.0-0.1); EOSINOPHILS # 0.3 10^3/ul (0.0-0.5); EOSINOPHILS % 4.3 % (0.0-7.0); HEMATOCRIT 29.3 % (42.0-52.0); HEMOGLOBIN 9.9 g/dl (14.0-18.0); LYMPHOCYTES % 17.1 % (15.0-51.0); MEAN CORPUSCULAR HEMOGLOBIN 33.8 pg (29.0-33.0); MEAN CORPUSCULAR HGB CONC 33.8 g/dl (32.0-37.0); MEAN CORPUSCULAR VOLUME 100.1 fl (82.0-101.0); MEAN PLATELET VOLUME 7.8 fl (7.4-10.4); MONOCYTE # 0.8 10^3/ul (0.3-0.9); MONOCYTES % 13.4 % (0.0-11.0); NEUTROPHIL # 3.9 10^3/ul (1.6-7.5); NEUTROPHILS % 64.2 % (39.0-77.0); PLATELET COUNT 217 10^3/UL (140-440); RED BLOOD COUNT 2.93 10^6/ul (4.70-6.10); RED CELL DISTRIBUTION WIDTH 16.6 % (11.5-14.5); UNCORRECTED WBC 6.1 10^3/ul (4.8-10.8); WHITE BLOOD COUNT 6.1 10^3/ul (4.8-10.8)
[2016-06-15 06:34] LABS: CONDITION 1; LH ANALYZER COMMENTS 1
[2016-06-15 06:50] LABS: POTASSIUM 4.1 mmol/L (3.5-5.1)
[2016-06-15 06:52] LABS: CREATININE 6.75 mg/dl (0.61-1.24)
[2016-06-15 06:53] LABS: CALCIUM 8.6 mg/dl (8.4-10.2)
[2016-06-15] MEDS: INSULIN ASPART [NOVOLOG] 3 ML PEN SC SCH ×4 (07:55→21:00)
[2016-06-15] MEDS: CALCIUM ACETATE 667 MG CAP PO SCH ×3 (08:55→18:04)
[2016-06-15] MEDS: SEVELAMER CARBONATE 0.8 GM PKT PO SCH ×3 (08:55→18:04)
[2016-06-15] MEDS: FERROUS SULFATE (EC) 325 MG TAB PO SCH ×2 (08:55→21:12)
[2016-06-15] MEDS: ASPIRIN (EC) 81 MG TAB PO SCH (08:55)
[2016-06-15] MEDS: AMLODIPINE 5 MG TAB PO SCH ×2 (08:56→21:13)
[2016-06-15] MEDS: METOPROLOL 25 MG TAB PO SCH ×2 (08:56→21:16)
[2016-06-15] MEDS: CLOPIDOGREL 75 MG TAB PO SCH (08:56)
[2016-06-15] MEDS: CHOLECALCIFEROL 400 UNITS TAB PO SCH (08:56)
[2016-06-15] MEDS: FAMOTIDINE 20 MG TAB PO SCH (08:56)
[2016-06-15] MEDS: HEPARIN 5,000 UNIT/0.5 ML SYG SC SCH ×2 (08:58→21:33)
[2016-06-15] MEDS ORDERED: VANCOMYCIN 1 GM in NS 250 ML IVPB SCH (11:30)
--- NOTE | 2016-06-15 12:52 | PN ---
Date/Time of Note Date/Time of Note DATE: 06/15/16 TIME: 12:46 Assessment/Plan VTE Prophylaxis VTE Prophylaxis Intervention: heparin Lines/Catheters IV Catheter Type (from Nrs): PICC Line Central line still needed: Yes Urinary Cath still in place: No Assessment/Plan Assessment/Plan 1. Possible diastolic heart failure with uncontrolled blood pressure. -transfer to telemetry floor. 2. Possible healthcare acquired pneumonia. -IV vancomycin and cefepime 3. Recurrent pleural effusion., history of pulmonary nodule on chest CT scan back in 2014. - per pulmonary - thoracentesis 4. Coronary artery disease, status post coronary artery bypass graft. 5. Permanent pacemaker placement. 6. End-stage renal disease. - HD 7. Uncontrolled hypertension. - continued on aspirin, Plavix, Amlodipine, Lipitor, metoprolol, 8. Dyslipidemia. 9. Diabetes.- Glycemic control 10. Hypoglycemia sec to possible high dose of Lantus- will do Lantus to 14 units QHS - cont to monitor Heparin for deep venous thrombosis prophylaxis. Further recommendations depend on hospital course. Plan of care discussed with the patient's Dr Price/ /staff Subjective 24 Hr Interval Summary Constitutional: requiring IVF, requiring O2 Eyes: no complaints ENT: no complaints Respiratory: pain, shortness of breath Cardiovascular: chest pain Gastrointestinal: no complaints Genitourinary: no complaints Musculoskeletal: bone/joint pain, no complaints Neurologic: no complaints Endocrine: no complaints Lymphatic: no complaints Immunologic: no complaints Exam/Review of Systems Vital Signs Vitals Vital Signs Date Time Temp Pulse Resp B/P Pulse Ox O2 Delivery O2 Flow Rate FiO2 06/15/16 12:04 69 06/15/16 11:29 98.1 18 138/65 97 06/15/16 04:46 Nasal Cannula 2.0 Intake and Output 06/14/16 06/14/16 06/15/16 15:00 23:00 07:00 Intake Total 500 ml 360 ml Output Total 1500 ml 300 ml Balance -1000 ml 60 ml Exam Constitutional: alert, oriented, well developed Psych: no complaints Head: atraumatic Eyes: EOMI, PERRL, nl sclera ENMT: nl external ears & nose Neck: non-tender Respiratory: crackles/rales (Right pleural effusion), diminished breath sounds Cardiovascular: nl pulses Gastrointestinal: non-tender, soft Musculoskeletal: nl extremities to inspection Extremities: normal pulses Neurological: nl mental status, nl speech Skin: nl turgor Lymph: nontender Results Result Diagram: 06/15/16 0550 06/15/16 0550 Results 24 hrs Laboratory Tests Test 06/14/16 16:48 06/14/16 17:37 06/14/16 20:22 06/15/16 05:50 Bedside Glucose 181 145 139 Anion Gap 15 Basophils # 0.1 Basophils % 1.0 Blood Morphology Comment Blood Urea Nitrogen 47 #H Calcium Level 8.6 Carbon Dioxide Level 30 Chloride Level 97 Creatinine 6.75 H Eosinophils # 0.3 Eosinophils % 4.3 Glucose Level 61 #L Hematocrit 29.3 L Hemoglobin 9.9 L Lymphocytes # 1.0 Lymphocytes % 17.1 Mean Corpuscular Hemoglobin 33.8 H Mean Corpuscular Hemoglobin Concent 33.8 Mean Corpuscular Volume 100.1 Mean Platelet Volume 7.8 Monocytes # 0.8 Monocytes % 13.4 H Neutrophils # 3.9 Neutrophils % 64.2 Nucleated Red Blood Cells # 0.0 Nucleated Red Blood Cells % 0.0 Platelet Count 217 # Potassium Level 4.1 Random Vancomycin Level 8.9 Red Blood Count 2.93 L Red Cell Distribution Width 16.6 H Sodium Level 138 White Blood Count 6.1 Test 06/15/16 08:08 06/15/16 08:54 06/15/16 11:39 Bedside Glucose 62 L 141 230 H Medications Medications Current Medications IV Flush (NS 10 ml) 10 ml PRN PRN IV FLUSH LINE; Start 06/13/16 at 19:00 Aspirin (Halfprin) 81 mg DAILY PO Last administered on 06/15/16 08:55; Admin Dose 81 MG; Start 06/14/16 at 09:00 Atorvastatin Calcium (Lipitor) 10 mg QHS PO Last administered on 06/14/16 20: 25; Admin Dose 10 MG; Start 06/14/16 at 21:00 Cholecalciferol (Vitamin D) 400 units DAILY PO Last administered on 06/15/16 08:56; Admin Dose 400 UNITS; Start 06/14/16 at 09:00 Clopidogrel Bisulfate (plaVIX) 75 mg DAILY PO Last administered on 06/15/16 08 :56; Admin Dose 75 MG; Start 06/14/16 at 09:00 Ferrous Sulfate (Ferrous Sulfate (Ec)) 325 mg BID PO Last administered on 08:55; Admin Dose 325 MG; Start 06/14/16 at 09:00 Insulin Glargine (Lantus) 18 unit QHS SC Last administered on 06/14/16 20:30; Admin Dose 18 UNIT; Start 06/14/16 at 21:00 Metoprolol Tartrate (Lopressor) 25 mg BID PO Last administered on 06/15/16 08: 56; Admin Dose 25 MG; Start 06/14/16 at 09:00 Hydralazine HCl (Apresoline) 10 mg Q4H PRN IV for SBP more than 170 Last administered on 06/14/16 15:10; Admin Dose 10 MG; Start 06/14/16 at 00:00 Acetaminophen (Tylenol Tab) 500 mg Q4H PRN PO PAIN AND OR ELEVATED TEMP Last administered on 06/14/16 15:19; Admin Dose 500 MG; Start 06/14/16 at 00:00 Heparin Sodium (Porcine) (Heparin (5000 Units/0.5 ml)) 5,000 unit BID SC Last administered on 06/15/16 08:58; Admin Dose 5,000 UNIT; Start 06/14/16 at 09:00 Vancomycin HCl (Vanco Iv Per Pharmacy) PER PHARMACY DOSING NOTE XX ; Start 06/14 at 00:30 Miscellaneous Information 1 ea NOTE XX ; Start 06/14/16 at 00:30 Glucose (Glutose) 15 gm Q15M PRN PO DECREASED GLUCOSE; Start 06/14/16 at 00:30 Glucose (Glutose) 22.5 gm Q15M PRN PO DECREASED GLUCOSE; Start 06/14/16 at 00: 30 Dextrose (D50w Syringe) 25 ml Q15M PRN IV DECREASED GLUCOSE; Start 06/14/16 at 00:30 Dextrose (D50w Syringe) 50 ml Q15M PRN IV DECREASED GLUCOSE; Start 06/14/16 at 00:30 Glucagon (Glucagen) 1 mg Q15M PRN IM DECREASED GLUCOSE; Start 06/14/16 at 00:30 Glucose (Glutose) 15 gm Q15M PRN BUCCAL DECREASED GLUCOSE; Start 06/14/16 at 00 :30 Diagnostic Test (Pha) (Accucheck) 1 ea 02 XX ; Start 06/14/16 at 02:00 Famotidine (Pepcid) 20 mg DAILY PO Last administered on 06/15/16 08:56; Admin Dose 20 MG; Start 06/14/16 at 09:00 Amlodipine Besylate (Norvasc) 5 mg BID PO Last administered on 06/15/16 08:56 ; Admin Dose 5 MG; Start 06/14/16 at 13:30 Clonidine (Catapres) 0.2 mg Q8 PRN PO Systolic >160 Last administered on 18:18; Admin Dose 0.2 MG; Start 06/14/16 at 13:00 Nitroglycerin (Nitroglycerin 2% Oint) 1 inch ONCE ONCE TD Last administered on 06/14/16 15:28; Admin Dose 1 INCH; Start 06/14/16 at 15:30; Stop 06/14/16 at 15:31 Hydralazine HCl (Apresoline) 10 mg ONCE ONCE IV Last administered on 16:15; Admin Dose 10 MG; Start 06/14/16 at 16:00; Stop 06/14/16 at 16:01 Hydralazine HCl (Apresoline) 50 mg Q8 PO Last administered on 06/15/16 05:15; Admin Dose 50 MG; Start 06/14/16 at 22:00 Promethazine HCl/ Codeine 5 ml 5 ml Q4H PRN PO COUGH Last administered on 00:09; Admin Dose 5 ML; Start 06/15/16 at 00:00 Cefepime HCl 50 ml @ 100 mls/hr Q24H IVPB ; Start 06/15/16 at 13:00 Vancomycin HCl (Vancocin) 250 ml @ 125 mls/hr Q24H IVPB ; Start 06/15/16 at 11: 30; Stop 06/15/16 at 23:00 PATRICIA RUEDA Jun 15, 2016 12:52
[2016-06-15] MEDS ORDERED: CEFEPIME 1GM/50 ML IVPB SCH (13:00)
[2016-06-15] MEDS ORDERED: PANTOPRAZOLE (EC) 40 MG TAB PO ONE (13:00)
--- NOTE | 2016-06-15 15:38 | CONS ---
DATE OF ADMISSION: 06/13/2016 DATE OF CONSULTATION: 06/14/2016 CONSULTATION: Pulmonary. PRIMARY PHYSICIAN: Dr. Cox REASON FOR CONSULTATION: Shortness of breath. HISTORY OF PRESENT ILLNESS: Briefly, this is a 60-year-old gentleman with a history of hypertensive heart disease, coronary artery disease status post CABG in 2010, cardiac stent in 2013, end-stage r enal disease on hemodialysis, hypertensive heart disease, diabetes, status post recent admission las t month for volume overload, also recurrent right pleural effusion that he has had for many years re quiring thoracenteses status post thoracentesis last month, fluid noted to be lymphocytic predominan t exudative process. Additionally, CT scan from last month did show a spiculated lesion in the righ t middle lobe. He now presents with what appears to be volume overload, hypertensive crises, and sh ortness of breath and cough with an enlarging right pleural effusion as well as a new small left ple ural effusion. PAST MEDICAL HISTORY: As above. He gets his dialysis via an AV fistula. PAST SURGICAL HISTORY: CABG, cardiac, PCI and stent, and AV fistula placement. ALLERGIES: NONE. MEDICATIONS: Please see MAR. FAMILY HISTORY: Noncontributory. SOCIAL HISTORY: No tobacco, alcohol, or illicit drug use. REVIEW OF SYSTEMS: As noted in the HPI. PHYSICAL EXAMINATION: VITAL SIGNS: Blood pressure is 197/71, heart rate is 80, oxygen saturation is 92% on 2 liters nasal cannula. HEENT: Normocephalic, atraumatic. NECK: Supple. Jugular venous pressures are elevated. CARDIOVASCULAR: Regular rate and rhythm, S1 and S2, II/ systolic murmur. CHEST: There are decreased breath sounds at the right base greater than left base, otherwise clear. ABDOMEN: Soft, nontender, no hepatosplenomegaly. EXTREMITIES: There is trace lower extremity edema. LABORATORY DATA: Hemoglobin is 9.9, MCV is 103.6, BUN is 63, creatinine is 8.3. Chest CT shows lar ge partially loculated right pleural effusion as well as a small left free flowing effusion. As not ed, CT from last month that allowed visualization of the right middle lobe did show a spiculated, ap proximately 2 cm lesion in the right middle lobe. IMPRESSION: Shortness of breath in a patient with multiple medical problems including hypertensive heart disease with hypertensive crises as well as end-stage renal disease and volume overload and a chronic enlarging right pleural effusion. He definitely needs a therapeutic thoracentesis on the ri ght side as soon as possible. However, he also would benefit from a more definitive procedure such as a VATS drainage and decortication and pleurodesis. Furthermore, this would allow tissue diagnosi s of the pleura as well as the right middle lobe lesion just to ensure that this is not malignant. RECOMMENDATIONS: 1. BP control, I would transfer to telemetry with optimization of blood pressure medications. 2. Ultrasound-guided thoracentesis as soon as possible. 3. Thoracic surgery referral to Dr. Martinez for possible right-sided VATS pleurodesis and possibl e pleural biopsy and biopsy of the right middle lobe nodule. Dictated By: SONYA ODEN MD NK/NTS Conf#: [id number] DID#: [id number] CC: EVA COX MD; MATILDE DEWEY MD;*EndCC*
--- NOTE | 2016-06-15 15:52 | CONS ---
Date/Time of Note Date/Time of Note DATE: 06/15/16 TIME: 15:49 Consult Date/Type/Reason Admit Date/Time Jun 13, 2016 at 14:48 Initial Consult Date Type of Consultation: Pulm Subjective Still awaiting thoracentesis. + dyspnea. Objective Vital Signs Date Time Temp Pulse Resp B/P Pulse Ox O2 Delivery O2 Flow Rate FiO2 06/15/16 15:42 98.1 68 18 143/54 97 06/15/16 04:46 Nasal Cannula 2.0 Intake and Output 06/14/16 06/14/16 06/15/16 15:00 23:00 07:00 Intake Total 500 ml 360 ml Output Total 1500 ml 300 ml Balance -1000 ml 60 ml HEENT: Normocephalic, atraumatic. NECK: Supple. Jugular venous pressures are elevated. CARDIOVASCULAR: Regular rate and rhythm, S1 and S2, II/ systolic murmur. CHEST: There are decreased breath sounds at the right base greater than left base, otherwise clear. ABDOMEN: Soft, nontender, no hepatosplenomegaly. EXTREMITIES: There is trace lower extremity edema. Results/Medications Result Diagram: 06/15/16 0550 06/15/16 0550 Results 24 hrs Laboratory Tests Test 06/14/16 16:48 06/14/16 17:37 06/14/16 20:22 06/15/16 05:50 Bedside Glucose 181 145 139 Anion Gap 15 Basophils # 0.1 Basophils % 1.0 Blood Morphology Comment Blood Urea Nitrogen 47 #H Calcium Level 8.6 Carbon Dioxide Level 30 Chloride Level 97 Creatinine 6.75 H Eosinophils # 0.3 Eosinophils % 4.3 Glucose Level 61 #L Hematocrit 29.3 L Hemoglobin 9.9 L Lymphocytes # 1.0 Lymphocytes % 17.1 Mean Corpuscular Hemoglobin 33.8 H Mean Corpuscular Hemoglobin Concent 33.8 Mean Corpuscular Volume 100.1 Mean Platelet Volume 7.8 Monocytes # 0.8 Monocytes % 13.4 H Neutrophils # 3.9 Neutrophils % 64.2 Nucleated Red Blood Cells # 0.0 Nucleated Red Blood Cells % 0.0 Platelet Count 217 # Potassium Level 4.1 Random Vancomycin Level 8.9 Red Blood Count 2.93 L Red Cell Distribution Width 16.6 H Sodium Level 138 White Blood Count 6.1 Test 06/15/16 08:08 06/15/16 08:54 06/15/16 11:39 Bedside Glucose 62 L 141 230 H Medications Current Medications IV Flush (NS 10 ml) 10 ml PRN PRN IV FLUSH LINE; Start 06/13/16 at 19:00 Aspirin (Halfprin) 81 mg DAILY PO Last administered on 06/15/16 08:55; Admin Dose 81 MG; Start 06/14/16 at 09:00 Atorvastatin Calcium (Lipitor) 10 mg QHS PO Last administered on 06/14/16 20: 25; Admin Dose 10 MG; Start 06/14/16 at 21:00 Cholecalciferol (Vitamin D) 400 units DAILY PO Last administered on 06/15/16 08:56; Admin Dose 400 UNITS; Start 06/14/16 at 09:00 Clopidogrel Bisulfate (plaVIX) 75 mg DAILY PO Last administered on 06/15/16 08 :56; Admin Dose 75 MG; Start 06/14/16 at 09:00 Ferrous Sulfate (Ferrous Sulfate (Ec)) 325 mg BID PO Last administered on 08:55; Admin Dose 325 MG; Start 06/14/16 at 09:00 Metoprolol Tartrate (Lopressor) 25 mg BID PO Last administered on 06/15/16 08: 56; Admin Dose 25 MG; Start 06/14/16 at 09:00 Hydralazine HCl (Apresoline) 10 mg Q4H PRN IV for SBP more than 170 Last administered on 06/14/16 15:10; Admin Dose 10 MG; Start 06/14/16 at 00:00 Acetaminophen (Tylenol Tab) 500 mg Q4H PRN PO PAIN AND OR ELEVATED TEMP Last administered on 06/14/16 15:19; Admin Dose 500 MG; Start 06/14/16 at 00:00 Heparin Sodium (Porcine) (Heparin (5000 Units/0.5 ml)) 5,000 unit BID SC Last administered on 06/15/16 08:58; Admin Dose 5,000 UNIT; Start 06/14/16 at 09:00 Vancomycin HCl (Vanco Iv Per Pharmacy) PER PHARMACY DOSING NOTE XX ; Start 06/14 at 00:30 Miscellaneous Information 1 ea NOTE XX ; Start 06/14/16 at 00:30 Glucose (Glutose) 15 gm Q15M PRN PO DECREASED GLUCOSE; Start 06/14/16 at 00:30 Glucose (Glutose) 22.5 gm Q15M PRN PO DECREASED GLUCOSE; Start 06/14/16 at 00: 30 Dextrose (D50w Syringe) 25 ml Q15M PRN IV DECREASED GLUCOSE; Start 06/14/16 at 00:30 Dextrose (D50w Syringe) 50 ml Q15M PRN IV DECREASED GLUCOSE; Start 06/14/16 at 00:30 Glucagon (Glucagen) 1 mg Q15M PRN IM DECREASED GLUCOSE; Start 06/14/16 at 00:30 Glucose (Glutose) 15 gm Q15M PRN BUCCAL DECREASED GLUCOSE; Start 06/14/16 at 00 :30 Diagnostic Test (Pha) (Accucheck) 1 ea 02 XX ; Start 06/14/16 at 02:00 Famotidine (Pepcid) 20 mg DAILY PO Last administered on 06/15/16 08:56; Admin Dose 20 MG; Start 06/14/16 at 09:00 Amlodipine Besylate (Norvasc) 5 mg BID PO Last administered on 06/15/16 08:56 ; Admin Dose 5 MG; Start 06/14/16 at 13:30 Clonidine (Catapres) 0.2 mg Q8 PRN PO Systolic >160 Last administered on 18:18; Admin Dose 0.2 MG; Start 06/14/16 at 13:00 Hydralazine HCl (Apresoline) 50 mg Q8 PO Last administered on 06/15/16 13:00; Admin Dose 50 MG; Start 06/14/16 at 22:00 Promethazine HCl/ Codeine 5 ml 5 ml Q4H PRN PO COUGH Last administered on 00:09; Admin Dose 5 ML; Start 06/15/16 at 00:00 Cefepime HCl 50 ml @ 100 mls/hr Q24H IVPB Last administered on 06/15/16 12:47 ; Admin Dose 100 MLS/HR; Start 06/15/16 at 13:00 Vancomycin HCl (Vancocin) 250 ml @ 125 mls/hr Q24H IVPB Last administered on 12:27; Admin Dose 125 MLS/HR; Start 06/15/16 at 11:30; Stop 06/15/16 at 23:00 Insulin Glargine (Lantus) 14 unit QHS SC ; Start 06/15/16 at 21:00 Pantoprazole (Protonix Tab) 40 mg DAILY@06 PO ; Start 06/16/16 at 06:00 Assessment/Plan Additional Assessment/Plan IMPRESSION: 1. Shortness of breath in a patient with multiple medical problems including hypertensive heart disease with hypertensive crises as well as end-stage renal disease and volume overload and a chronic enlarging right pleural effusion. He definitely needs a therapeutic thoracentesis on the right side as soon as possible. However, he also would benefit from a more definitive procedure such as a VATS drainage and decortication and pleurodesis. Furthermore, this would allow tissue diagnosis of the pleura as well as the right middle lobe lesion just to ensure that this is not malignant. 2. RML Nodule RECOMMENDATIONS: 1. Await U/S-guided thoracentesis 2. Thoracic Surgery consultation for VATS bx of RML nodule/pleurodesis 3. Cocci serologies/TB quant GOLD SONYA ODEN MD Jun 15, 2016 15:52
[2016-06-15] MEDS ORDERED: LIDOCAINE 1% (MDV) 20 ML INJ ONE (17:05)
[2016-06-15] MEDS ORDERED: LIDOCAINE 1% (MPF) 5 ML VIAL ONE (17:36)
--- NOTE | 2016-06-15 17:56 | RADRPT ---
PROCEDURE: Ultrasound guided thoracentesis CLINICAL INDICATION: Pleural effusion TECHNIQUE: Multiple sonographic images were obtained through the patient's chest. A site in the heather whitman's right lower chest was selected and marked ink pen. The area was prepped and draped in the u sual sterile fashion. The skin and subcutaneous tissues were anesthetized with 10 cc of 1% lidocain e. A a 6-Turkish 10 cm long thoracentesis needle was advanced into the pleural space and the introduc er was connected to a vacuum drainage system. A total of 1200 cc of serosanguineous fluid was drain ed. The patient tolerated the procedure well. The specimen was sent for laboratory evaluation. COMPARISON: Radiograph dated 06/13/2016 FINDINGS: Anechoic fluid visualized in the chest cavity on ultrasound. IMPRESSION: 1. Successful ultrasound-guided thoracentesis without immediate complication. RPTAT: II .Min Hook MD, MD Date Time Electronically viewed and signed by .Min Hook MD, on 06/15/2016 17:56 .M/
--- NOTE | 2016-06-15 17:58 | RADRPT ---
PROCEDURE: XR Chest. CLINICAL INDICATION: Thoracentesis TECHNIQUE: Anterior chest x-ray. COMPARISON: 06/13/2016 FINDINGS: The lungs are clear. Blunting of bilateral costophrenic angle suggest trace pleural effusions. Significant improvement in right pleural effusion is noted. There is no evidence of pneumothorax. Dual lead left cardiac pacemaker, median sternotomy wires and vascular clips demonstrates stable and satisfactory position. There is atherosclerotic calcification of the aorta. The soft tissues are normal. Osseous structures are unremarkable. IMPRESSION: 1. Interval right thoracentesis without evidence of pneumothorax. 2. Significant improvement in right pleural effusion with trace bilateral pleural effusions noted. 3. Stable position of dual lead left cardiac pacemaker. RPTAT: QQ .Min Hook MD, MD Date Time Electronically viewed and signed by .Min Hook MD, on 06/15/2016 17:58 .M/
[2016-06-15] MEDS: LEVALBUTEROL (HFA) 15 GM INHALER INH SCH (18:04)
--- NOTE | 2016-06-15 18:31 | PN ---
Date/Time of Note Date/Time of Note DATE: 06/15/16 TIME: 18:28 Assessment/Plan VTE Prophylaxis VTE Prophylaxis Intervention: other Assessment/Plan Problems: (1) Weakness Status: Acute (2) Shortness of breath Status: Acute (3) End stage kidney disease Status: Chronic Assessment/Plan [id number] hd plan am Subjective 24 Hr Interval Summary Respiratory: shortness of breath Exam/Review of Systems Vital Signs Vitals Vital Signs Date Time Temp Pulse Resp B/P Pulse Ox O2 Delivery O2 Flow Rate FiO2 06/15/16 16:04 72 06/15/16 15:42 98.1 18 143/54 97 06/15/16 04:46 Nasal Cannula 2.0 Intake and Output 06/14/16 06/14/16 06/15/16 15:00 23:00 07:00 Intake Total 500 ml 360 ml Output Total 1500 ml 300 ml Balance -1000 ml 60 ml Exam Constitutional: alert, oriented Psych: no complaints Neck: supple Respiratory: diminished breath sounds Cardiovascular: regular rate and rhythm Gastrointestinal: soft Musculoskeletal: swelling Results Result Diagram: 06/15/16 0550 06/15/16 0550 Results 24 hrs Laboratory Tests Test 06/14/16 20:22 06/15/16 05:50 06/15/16 08:08 06/15/16 08:54 Bedside Glucose 139 62 L 141 Anion Gap 15 Basophils # 0.1 Basophils % 1.0 Blood Morphology Comment Blood Urea Nitrogen 47 #H Calcium Level 8.6 Carbon Dioxide Level 30 Chloride Level 97 Creatinine 6.75 H Eosinophils # 0.3 Eosinophils % 4.3 Glucose Level 61 #L Hematocrit 29.3 L Hemoglobin 9.9 L Lymphocytes # 1.0 Lymphocytes % 17.1 Mean Corpuscular Hemoglobin 33.8 H Mean Corpuscular Hemoglobin Concent 33.8 Mean Corpuscular Volume 100.1 Mean Platelet Volume 7.8 Monocytes # 0.8 Monocytes % 13.4 H Neutrophils # 3.9 Neutrophils % 64.2 Nucleated Red Blood Cells # 0.0 Nucleated Red Blood Cells % 0.0 Platelet Count 217 # Potassium Level 4.1 Random Vancomycin Level 8.9 Red Blood Count 2.93 L Red Cell Distribution Width 16.6 H Sodium Level 138 White Blood Count 6.1 Test 06/15/16 11:39 06/15/16 18:06 Bedside Glucose 230 H 82 Medications Medications Current Medications IV Flush (NS 10 ml) 10 ml PRN PRN IV FLUSH LINE; Start 06/13/16 at 19:00 Aspirin (Halfprin) 81 mg DAILY PO Last administered on 06/15/16 08:55; Admin Dose 81 MG; Start 06/14/16 at 09:00 Atorvastatin Calcium (Lipitor) 10 mg QHS PO Last administered on 06/14/16 20: 25; Admin Dose 10 MG; Start 06/14/16 at 21:00 Cholecalciferol (Vitamin D) 400 units DAILY PO Last administered on 06/15/16 08:56; Admin Dose 400 UNITS; Start 06/14/16 at 09:00 Clopidogrel Bisulfate (plaVIX) 75 mg DAILY PO Last administered on 06/15/16 08 :56; Admin Dose 75 MG; Start 06/14/16 at 09:00 Ferrous Sulfate (Ferrous Sulfate (Ec)) 325 mg BID PO Last administered on 08:55; Admin Dose 325 MG; Start 06/14/16 at 09:00 Metoprolol Tartrate (Lopressor) 25 mg BID PO Last administered on 06/15/16 08: 56; Admin Dose 25 MG; Start 06/14/16 at 09:00 Hydralazine HCl (Apresoline) 10 mg Q4H PRN IV for SBP more than 170 Last administered on 06/14/16 15:10; Admin Dose 10 MG; Start 06/14/16 at 00:00 Acetaminophen (Tylenol Tab) 500 mg Q4H PRN PO PAIN AND OR ELEVATED TEMP Last administered on 06/14/16 15:19; Admin Dose 500 MG; Start 06/14/16 at 00:00 Heparin Sodium (Porcine) (Heparin (5000 Units/0.5 ml)) 5,000 unit BID SC Last administered on 06/15/16 08:58; Admin Dose 5,000 UNIT; Start 06/14/16 at 09:00 Vancomycin HCl (Vanco Iv Per Pharmacy) PER PHARMACY DOSING NOTE XX ; Start 06/14 at 00:30 Miscellaneous Information 1 ea NOTE XX ; Start 06/14/16 at 00:30 Glucose (Glutose) 15 gm Q15M PRN PO DECREASED GLUCOSE; Start 06/14/16 at 00:30 Glucose (Glutose) 22.5 gm Q15M PRN PO DECREASED GLUCOSE; Start 06/14/16 at 00: 30 Dextrose (D50w Syringe) 25 ml Q15M PRN IV DECREASED GLUCOSE; Start 06/14/16 at 00:30 Dextrose (D50w Syringe) 50 ml Q15M PRN IV DECREASED GLUCOSE; Start 06/14/16 at 00:30 Glucagon (Glucagen) 1 mg Q15M PRN IM DECREASED GLUCOSE; Start 06/14/16 at 00:30 Glucose (Glutose) 15 gm Q15M PRN BUCCAL DECREASED GLUCOSE; Start 06/14/16 at 00 :30 Diagnostic Test (Pha) (Accucheck) 1 ea 02 XX ; Start 06/14/16 at 02:00 Famotidine (Pepcid) 20 mg DAILY PO Last administered on 06/15/16 08:56; Admin Dose 20 MG; Start 06/14/16 at 09:00 Amlodipine Besylate (Norvasc) 5 mg BID PO Last administered on 06/15/16 08:56 ; Admin Dose 5 MG; Start 06/14/16 at 13:30 Clonidine (Catapres) 0.2 mg Q8 PRN PO Systolic >160 Last administered on 18:18; Admin Dose 0.2 MG; Start 06/14/16 at 13:00 Hydralazine HCl (Apresoline) 50 mg Q8 PO Last administered on 06/15/16 13:00; Admin Dose 50 MG; Start 06/14/16 at 22:00 Promethazine HCl/ Codeine 5 ml 5 ml Q4H PRN PO COUGH Last administered on 00:09; Admin Dose 5 ML; Start 06/15/16 at 00:00 Cefepime HCl 50 ml @ 100 mls/hr Q24H IVPB Last administered on 06/15/16 12:47 ; Admin Dose 100 MLS/HR; Start 06/15/16 at 13:00 Vancomycin HCl (Vancocin) 250 ml @ 125 mls/hr Q24H IVPB Last administered on 12:27; Admin Dose 125 MLS/HR; Start 06/15/16 at 11:30; Stop 06/15/16 at 23:00 Insulin Glargine (Lantus) 14 unit QHS SC ; Start 06/15/16 at 21:00 Pantoprazole (Protonix Tab) 40 mg DAILY@06 PO ; Start 06/16/16 at 06:00 ENEDINA YOUNGER MD Jun 15, 2016 18:30
[2016-06-15] MEDS: ATORVASTATIN 10 MG TAB PO SCH (21:12)
[2016-06-15] MEDS: ACETAMINOPHEN 500 MG TAB PO PRN (21:28)
[2016-06-15] MEDS: INSULIN GLARGINE [LANtus] 3 ML PEN SC SCH (21:34)
[2016-06-15] MEDS: DIPHENHYDRAMINE 25 MG CAP PO PRN (22:43)
[2016-06-16] VITALS (13 sets, daily range): BP systolic 136–171; BP diastolic 55–72; PULSE 69–71; RESP 18–22
[2016-06-16] MEDS: LEVALBUTEROL (HFA) 15 GM INHALER INH SCH ×3 (00:58→16:53)
[2016-06-16] MEDS: ACCU-CHEK XX SCH ×5 (02:00→21:04)
[2016-06-16] MEDS: hydrALAzine 20 MG INJ IV PRN (03:02)
[2016-06-16 05:55] LABS: POTASSIUM 4.1 mmol/L (3.5-5.1)
[2016-06-16 05:58] LABS: CREATININE 8.25 mg/dl (0.61-1.24)
[2016-06-16 05:59] LABS: CALCIUM 8.5 mg/dl (8.4-10.2)
[2016-06-16 06:04] LABS: BASOPHILS % 0.6 % (0.0-2.0); EOSINOPHILS # 0.2 10^3/ul (0.0-0.5); EOSINOPHILS % 2.8 % (0.0-7.0); HEMATOCRIT 28.6 % (42.0-52.0); HEMOGLOBIN 9.6 g/dl (14.0-18.0); LYMPHOCYTES # 0.6 10^3/ul (0.8-2.9); LYMPHOCYTES % 10.3 % (15.0-51.0); MEAN CORPUSCULAR HEMOGLOBIN 33.8 pg (29.0-33.0); MEAN CORPUSCULAR HGB CONC 33.7 g/dl (32.0-37.0); MEAN CORPUSCULAR VOLUME 100.3 fl (82.0-101.0); MEAN PLATELET VOLUME 7.8 fl (7.4-10.4); MONOCYTE # 0.7 10^3/ul (0.3-0.9); MONOCYTES % 12.8 % (0.0-11.0); NEUTROPHIL # 4.3 10^3/ul (1.6-7.5); NEUTROPHILS % 73.5 % (39.0-77.0); PLATELET COUNT 210 10^3/UL (140-440); RED BLOOD COUNT 2.85 10^6/ul (4.70-6.10); RED CELL DISTRIBUTION WIDTH 16.1 % (11.5-14.5); UNCORRECTED WBC 5.8 10^3/ul (4.8-10.8); WHITE BLOOD COUNT 5.8 10^3/ul (4.8-10.8)
[2016-06-16 06:18] LABS: CONDITION 1; LH ANALYZER COMMENTS 1
[2016-06-16] MEDS: PANTOPRAZOLE (EC) 40 MG TAB PO SCH (06:35)
[2016-06-16] MEDS: INSULIN ASPART [NOVOLOG] 3 ML PEN SC SCH ×4 (07:52→20:53)
[2016-06-16] MEDS: SEVELAMER CARBONATE 0.8 GM PKT PO SCH ×3 (08:56→18:16)
[2016-06-16] MEDS: CALCIUM ACETATE 667 MG CAP PO SCH ×3 (08:56→18:16)
[2016-06-16] MEDS: ASPIRIN (EC) 81 MG TAB PO SCH (08:57)
[2016-06-16] MEDS: FERROUS SULFATE (EC) 325 MG TAB PO SCH ×2 (08:57→20:45)
[2016-06-16] MEDS: CLOPIDOGREL 75 MG TAB PO SCH (08:57)
[2016-06-16] MEDS: CHOLECALCIFEROL 400 UNITS TAB PO SCH (08:57)
[2016-06-16] MEDS: FAMOTIDINE 20 MG TAB PO SCH (08:58)
[2016-06-16] MEDS: METOPROLOL 25 MG TAB PO SCH ×2 (08:58→20:47)
[2016-06-16] MEDS: HEPARIN 5,000 UNIT/0.5 ML SYG SC SCH ×2 (09:01→20:54)
[2016-06-16] MEDS: AMLODIPINE 5 MG TAB PO SCH ×2 (09:41→20:46)
--- NOTE | 2016-06-16 10:54 | CONS ---
Date/Time of Note Date/Time of Note DATE: 06/16/16 TIME: 10:49 Assessment/Plan Assessment/Plan Additional Assessment/Plan Assessment and recommendations; next 1. Patient admitted with large right pleural effusion status post thoracentesis performed on the of this month 1200 cc of fluid was removed chest x-ray was reviewed from yesterday which is essentially clear now. 2. Hypertension. 3. End-stage renal disease on dialysis . 4. Diabetes. 5. Coronary artery disease status post bypass surgery in 2010, according to the patient he has had so far four thoracentesis performed on the right side. Next 6. Currently there is no evidence of any infective process. Next Patient can be discharged home. Discontinue antibiotics. if the patient gets admitted next time with pleural effusion, I would not recommend performing any thoracentesis and would recommend obtaining a thoracic surgery consult for a VATS procedure with pleurodesis. Consultation Date/Type/Reason Admit Date/Time Jun 13, 2016 at 14:48 Initial Consult Date Type of Consultation: Pulm 24 HR Interval Summary Free Text/Dictation Patient condition is stable. Denies any shortness of breath, chest pain, fever , chills. Denies any sputum production. Complains of very scant cough. General examination; young [place] male currently in no distress awake and alert. Exam/Review of Systems Vital Signs Vitals Vital Signs Date Time Temp Pulse Resp B/P Pulse Ox O2 Delivery O2 Flow Rate FiO2 06/16/16 09:31 70 06/16/16 08:38 98.1 19 143/66 98 06/16/16 03:35 Nasal Cannula 2.0 Intake and Output 06/15/16 06/15/16 06/16/16 15:00 23:00 07:00 Intake Total 1100 ml 400 ml Output Total 300 ml Balance 800 ml 400 ml Exam HEENT examination; supple neck, no JVD. No lymphadenopathy. Midline trachea. Good dentition. Pupils are midsize reactive to light bilaterally. Extra ocular movements are intact. Chest examination; clear to auscultation bilaterally. S1-S2 audible, no murmurs. There is a well-healed sternal scar. Abdomen examination; soft, nontender, no organomegaly. Bowel sounds audible. Extremity examination; no peripheral edema. Pulses 2+ bilaterally. STAKER SURVEYING examination; no focal deficit. Results Result Diagram: 06/16/16 0510 06/16/16 0510 Results 24 hrs Laboratory Tests Test 06/15/16 11:39 06/15/16 18:06 06/15/16 21:10 06/16/16 02:50 Bedside Glucose 230 H 82 126 46 *L Test 06/16/16 03:12 06/16/16 03:31 06/16/16 05:10 06/16/16 07:41 Bedside Glucose 91 130 79 Anion Gap 15 Basophils # 0.0 Basophils % 0.6 Blood Morphology Comment Blood Urea Nitrogen 56 H Calcium Level 8.5 Carbon Dioxide Level 25 Chloride Level 100 Creatinine 8.25 H Eosinophils # 0.2 Eosinophils % 2.8 Glucose Level 121 # Hematocrit 28.6 L Hemoglobin 9.6 L Lymphocytes # 0.6 L Lymphocytes % 10.3 L Mean Corpuscular Hemoglobin 33.8 H Mean Corpuscular Hemoglobin Concent 33.7 Mean Corpuscular Volume 100.3 Mean Platelet Volume 7.8 Monocytes # 0.7 Monocytes % 12.8 H Neutrophils # 4.3 Neutrophils % 73.5 Nucleated Red Blood Cells # 0.0 Nucleated Red Blood Cells % 0.0 Platelet Count 210 Potassium Level 4.1 Red Blood Count 2.85 L Red Cell Distribution Width 16.1 H Sodium Level 136 White Blood Count 5.8 Medications Medications Current Medications IV Flush (NS 10 ml) 10 ml PRN PRN IV FLUSH LINE; Start 06/13/16 at 19:00 Aspirin (Halfprin) 81 mg DAILY PO Last administered on 06/16/16 08:57; Admin Dose 81 MG; Start 06/14/16 at 09:00 Atorvastatin Calcium (Lipitor) 10 mg QHS PO Last administered on 06/15/16 21: 12; Admin Dose 10 MG; Start 06/14/16 at 21:00 Cholecalciferol (Vitamin D) 400 units DAILY PO Last administered on 06/16/16 08:57; Admin Dose 400 UNITS; Start 06/14/16 at 09:00 Clopidogrel Bisulfate (plaVIX) 75 mg DAILY PO Last administered on 06/16/16 08 :57; Admin Dose 75 MG; Start 06/14/16 at 09:00 Ferrous Sulfate (Ferrous Sulfate (Ec)) 325 mg BID PO Last administered on 08:57; Admin Dose 325 MG; Start 06/14/16 at 09:00 Metoprolol Tartrate (Lopressor) 25 mg BID PO Last administered on 06/16/16 08: 58; Admin Dose 25 MG; Start 06/14/16 at 09:00 Hydralazine HCl (Apresoline) 10 mg Q4H PRN IV for SBP more than 170 Last administered on 06/16/16 03:02; Admin Dose 10 MG; Start 06/14/16 at 00:00 Acetaminophen (Tylenol Tab) 500 mg Q4H PRN PO PAIN AND OR ELEVATED TEMP Last administered on 06/15/16 21:28; Admin Dose 500 MG; Start 06/14/16 at 00:00 Heparin Sodium (Porcine) (Heparin (5000 Units/0.5 ml)) 5,000 unit BID SC Last administered on 06/16/16 09:01; Admin Dose 5,000 UNIT; Start 06/14/16 at 09:00 Vancomycin HCl (Vanco Iv Per Pharmacy) PER PHARMACY DOSING NOTE XX ; Start 06/14 at 00:30 Miscellaneous Information 1 ea NOTE XX ; Start 06/14/16 at 00:30 Glucose (Glutose) 15 gm Q15M PRN PO DECREASED GLUCOSE; Start 06/14/16 at 00:30 Glucose (Glutose) 22.5 gm Q15M PRN PO DECREASED GLUCOSE; Start 06/14/16 at 00: 30 Dextrose (D50w Syringe) 25 ml Q15M PRN IV DECREASED GLUCOSE; Start 06/14/16 at 00:30 Dextrose (D50w Syringe) 50 ml Q15M PRN IV DECREASED GLUCOSE; Start 06/14/16 at 00:30 Glucagon (Glucagen) 1 mg Q15M PRN IM DECREASED GLUCOSE; Start 06/14/16 at 00:30 Glucose (Glutose) 15 gm Q15M PRN BUCCAL DECREASED GLUCOSE; Start 06/14/16 at 00 :30 Diagnostic Test (Pha) (Accucheck) 1 ea 02 XX ; Start 06/14/16 at 02:00 Famotidine (Pepcid) 20 mg DAILY PO Last administered on 06/16/16 08:58; Admin Dose 20 MG; Start 06/14/16 at 09:00 Amlodipine Besylate (Norvasc) 5 mg BID PO Last administered on 06/16/16 09:41 ; Admin Dose 5 MG; Start 06/14/16 at 13:30 Clonidine (Catapres) 0.2 mg Q8 PRN PO Systolic >160 Last administered on 18:18; Admin Dose 0.2 MG; Start 06/14/16 at 13:00 Hydralazine HCl (Apresoline) 50 mg Q8 PO Last administered on 06/16/16 06:36; Admin Dose 50 MG; Start 06/14/16 at 22:00 Promethazine HCl/ Codeine 5 ml 5 ml Q4H PRN PO COUGH Last administered on 00:09; Admin Dose 5 ML; Start 06/15/16 at 00:00 Cefepime HCl (Maxipime 1gm/50 ml (Pmx)) 50 ml @ 100 mls/hr Q24H IVPB Last administered on 06/15/16 12:47; Admin Dose 100 MLS/HR; Start 06/15/16 at 13:00 Insulin Glargine (Lantus) 14 unit QHS SC Last administered on 06/15/16 21:34; Admin Dose 14 UNIT; Start 06/15/16 at 21:00 Pantoprazole (Protonix Tab) 40 mg DAILY@06 PO Last administered on 06/16/16 06 :35; Admin Dose 40 MG; Start 06/16/16 at 06:00 Diphenhydramine HCl (Benadryl) 25 mg HS PRN PO INSOMNIA Last administered on 22:43; Admin Dose 25 MG; Start 06/15/16 at 21:30 BOONE POLO Jun 16, 2016 10:54
--- NOTE | 2016-06-16 14:54 | CONS ---
DATE OF ADMISSION: 06/13/2016 DATE OF CONSULTATION: 06/16/2016 CARDIOLOGY CONSULTATION REASON FOR CONSULTATION: Abnormal electrocardiogram, assess for acute coronary syndrome. REQUESTING PHYSICIAN: Dr. Dakotah Price HISTORY OF PRESENT ILLNESS: Mr. Singh is a 60-year-old male well known to myself as a primary office patient with a history of congestive heart failure with diastolic dysfunction by most recent echo, h istory of percutaneous transluminal coronary angioplasty and stent placement to LAD and left main in 2014, history of coronary artery bypass grafting, end-stage renal disease, on hemodialysis, pleural effusion status post thoracentesis, dyslipidemia, recent admit for chest pain with a stress test revealing an EF of 59% and no ischemia. The patient now re-presents with complaints of wor sening shortness of breath. Upon arrival in the emergency department, temperature 99.8, blood press ure elevated at 129/75, pulse 89, respiratory rate 22, saturating 90%. The patient's labs revealed a white count 7.9, hemoglobin 10.5, platelet count 233. A sodium of 141, potassium 4.2, creatinine 8.3, BUN of 63. Troponin negative. INR 1.0. Tox screen revealing vancomycin of 8.9. The patient underwent a chest x-ray revealing interval increase in size of right pleural effusion, small left pl eural effusion, pacemaker in adequate placement, a subsequent chest CT reveals large loculated left pleural effusion with associated compressive atelectasis of the right lung, increase in size, mild c ardiomegaly. Then subsequently the patient underwent a thoracentesis -1200 mL of fluid on the left side. The patient's EKG had revealed normal sinus rhythm at the rate of 73, normal axis, normal int ervals, lateral T-wave inversion. The patient since admit to the floor, has been treated with broad -spectrum antibiotics and thoracentesis as above with improvement in shortness of breath. He has co ntinued on his baseline antiplatelet agents and antihypertensives. The patient denies chest pain at this time. PAST MEDICAL HISTORY: As above in HPI. MEDICATIONS CURRENTLY IN HOSPITAL: 1. Protonix 40 mg daily. 2. Benadryl 25 mg p.o. at bedtime p.r.n. 3. Lantus 14 units subQ at bedtime. 4. Xopenex. 5. Phenergan. 6. Hydralazine 50 mg p.o. q.8. 7. Lipitor 10 mg at bedtime. 8. Norvasc 5 mg b.i.d. 9. Clonidine p.r.n. 10. Aspirin 81 mg daily. 11. Vitamin D. 12. Plavix 75 mg daily. 13. Ferrous sulfate 325 mg p.o. b.i.d. 14. Metoprolol 25 mg p.o. b.i.d. 15. Heparin 5000 subQ b.i.d. 16. Pepcid 20 mg daily. 17. Insulin sliding scale. 18. PhosLo with meals. 19. Vancomycin 20. Hydralazine p.r.n. 21. Tylenol p.r.n. ALLERGIES: NO KNOWN DRUG ALLERGIES. SOCIAL HISTORY: No tobacco, ETOH, or illicit drug use. FAMILY HISTORY: Negative for sudden cardiac or early CAD. REVIEW OF SYSTEMS: As above in HPI. CONSTITUTIONAL: No fevers, chills. PULMONARY: Shortness of breath, improving. CARDIOVASCULAR: History of PTCA and stent placement. GASTROINTESTINAL: No vomiting. GENITOURINARY: No hematuria. MUSCULOSKELETAL: Degenerative joint disease. PSYCHIATRIC: The patient denies depression. NEUROLOGIC: No documented history of CVA. PHYSICAL EXAMINATION: VITAL SIGNS: Temperature of 98.1, blood pressure most recently 143/66, pulse 79, respiratory rate 1 9, saturating 98%. GENERAL: The patient is alert, awake, complaining of mild shortness of breath. NECK: JVP approximately 9 cm of water. CHEST: Fair movement throughout with mildly decreased breath sounds at bases bilaterally. HEART: Regular rate and rhythm. Normal S1, S2, I/ systolic murmur, nondisplaced PMI. ABDOMEN: Positive bowel sounds, soft. EXTREMITIES: No pitting edema, 1+ pulses bilaterally posterior tibial. LABORATORIES: Most recently from today, sodium 136, potassium 4.1, creatinine 8.25, BUN of 56. Whi te blood cell count 5.8, hemoglobin 9.6, platelet count 210. IMAGING STUDIES: Chest x-ray from the revealing interval right thoracentesis without evidence of pneumothorax, significant improvement in right pleural effusion. ECG: As above in HPI. No further electrocardiograms for my review at this time. IMPRESSION: 1. Abnormal electrocardiogram, assess for acute coronary syndrome. 2. History of recent negative stress, May 2015. 3. History of percutaneous transluminal coronary angioplasty and stent placement in 2014 to the lef t main left anterior descending. No current chest pain. 4. Hypertension, mildly elevated. 5. History of dyslipidemia. 6. Pleural effusion, status post thoracentesis. 7. Possible pneumonia. 8. Diabetes mellitus. 9. End-stage renal disease, on hemodialysis. RECOMMENDATIONS: 1. At this time, would maintain the patient on telemetry monitoring to follow rhythm and rate contr ol closely. 2. Would complete the patient's rule out for myocardial infarction to ensure that the patient's EKG abnormalities are chronic in nature and not due to any recent acute coronary syndrome such as acute myocardial infarction. 3. We will continue the patient's baseline antihypertensives with flow of titration to improve over all systolic blood pressure control. 4. Continue the patient's broad-spectrum antibiotics and follow up all culture data. 5. Hemodialysis for volume removal and follow the patient's volume status closely. 6. Continue the patient's dual antiplatelet therapy with aspirin and Plavix and check a fasting lip id panel and adjust the patient's statin therapy as necessary. Thank you for allowing me to take part in the care of this patient. I will continue to follow along very closely with you. Further recommendations will be made as the patient progresses through his inpatient hospital clinical course. Dictated By: SHERITA GARCIA/MANJIT Conf#: [id number] DID#: [id number] CC: DAKOTAH PRICE MD;*EndCC*
--- NOTE | 2016-06-16 18:43 | PN ---
Date/Time of Note Date/Time of Note DATE: 06/16/16 TIME: 18:34 Assessment/Plan VTE Prophylaxis VTE Prophylaxis Intervention: heparin Lines/Catheters IV [facility]ter Type (from [facility]): PICC Line Central line still needed: Yes Urinary Cath still in place: No Assessment/Plan Chief Complaint/Hosp Course Assessment and plan - Right pleural effusion, status post thoracentesis. Follow-up on culture. Dr. Dale is following in pulmonology consultation. - Possible healthcare acquired pneumonia - End-stage renal disease, continue hemodialysis. - Diabetes mellitus type 2, continue Lantus and NovoLog - Hypertension. Dr. De Santiago is following and cardiology consultation. - Coronary artery disease, status post coronary artery bypass graft. Continue aspirin and Plavix. - Permanent pacemaker. No acute issues. - Dyslipidemia. Continue Lipitor. Continue heparin for deep venous thrombosis prophylaxis and Protonix for peptic ulcer disease prophylaxis. Further recommendations based on clinical course. Plan of care discussed with Dr. Price. Problems: Subjective 24 Hr Interval Summary Free Text/Dictation Patient denies any shortness of breath, denies nausea vomiting denies fevers, breathing comfortably on room air. Exam/Review of Systems Vital Signs Vitals Vital Signs Date Time Temp Pulse Resp B/P Pulse Ox O2 Delivery O2 Flow Rate FiO2 06/16/16 16:41 71 06/16/16 15:43 98.0 19 169/70 97 06/16/16 03:35 Nasal Cannula 2.0 Intake and Output 06/15/16 06/15/16 06/16/16 15:00 23:00 07:00 Intake Total 1100 ml 400 ml Output Total 300 ml Balance 800 ml 400 ml Exam Constitutional: alert Psych: no complaints Head: atraumatic, normocephalic Eyes: nl conjunctiva ENMT: nl external ears & nose Neck: non-tender, supple Respiratory: clear to auscultation Cardiovascular: nl pulses Gastrointestinal: non-tender, soft Musculoskeletal: nl extremities to inspection Extremities: normal pulses Neurological: VICE PRESIDENT FINANCIAL II-XII intact Skin: nl turgor Results Result Diagram: 06/16/16 0510 06/16/16 0510 Results 24 hrs Laboratory Tests Test 06/15/16 21:10 06/16/16 02:50 06/16/16 03:12 06/16/16 03:31 Bedside Glucose 126 46 *L 91 130 Test 06/16/16 05:10 06/16/16 07:41 06/16/16 11:34 06/16/16 16:50 Anion Gap 15 Basophils # 0.0 Basophils % 0.6 Blood Morphology Comment Blood Urea Nitrogen 56 H Calcium Level 8.5 Carbon Dioxide Level 25 Chloride Level 100 Creatinine 8.25 H Eosinophils # 0.2 Eosinophils % 2.8 Glucose Level 121 # Hematocrit 28.6 L Hemoglobin 9.6 L Lymphocytes # 0.6 L Lymphocytes % 10.3 L Mean Corpuscular Hemoglobin 33.8 H Mean Corpuscular Hemoglobin Concent 33.7 Mean Corpuscular Volume 100.3 Mean Platelet Volume 7.8 Monocytes # 0.7 Monocytes % 12.8 H Neutrophils # 4.3 Neutrophils % 73.5 Nucleated Red Blood Cells # 0.0 Nucleated Red Blood Cells % 0.0 Platelet Count 210 Potassium Level 4.1 Red Blood Count 2.85 L Red Cell Distribution Width 16.1 H Sodium Level 136 White Blood Count 5.8 Bedside Glucose 79 90 221 H Medications Medications Current Medications IV Flush (NS 10 ml) 10 ml PRN PRN IV FLUSH LINE; Start 06/13/16 at 19:00 Aspirin (Halfprin) 81 mg DAILY PO Last administered on 06/16/16 08:57; Admin Dose 81 MG; Start 06/14/16 at 09:00 Atorvastatin Calcium (Lipitor) 10 mg QHS PO Last administered on 06/15/16 21: 12; Admin Dose 10 MG; Start 06/14/16 at 21:00 Cholecalciferol (Vitamin D) 400 units DAILY PO Last administered on 06/16/16 08:57; Admin Dose 400 UNITS; Start 06/14/16 at 09:00 Clopidogrel Bisulfate (plaVIX) 75 mg DAILY PO Last administered on 06/16/16 08 :57; Admin Dose 75 MG; Start 06/14/16 at 09:00 Ferrous Sulfate (Ferrous Sulfate (Ec)) 325 mg BID PO Last administered on 08:57; Admin Dose 325 MG; Start 06/14/16 at 09:00 Metoprolol Tartrate (Lopressor) 25 mg BID PO Last administered on 06/16/16 08: 58; Admin Dose 25 MG; Start 06/14/16 at 09:00 Hydralazine HCl (Apresoline) 10 mg Q4H PRN IV for SBP more than 170 Last administered on 06/16/16 03:02; Admin Dose 10 MG; Start 06/14/16 at 00:00 Acetaminophen (Tylenol Tab) 500 mg Q4H PRN PO PAIN AND OR ELEVATED TEMP Last administered on 06/15/16 21:28; Admin Dose 500 MG; Start 06/14/16 at 00:00 Heparin Sodium (Porcine) (Heparin (5000 Units/0.5 ml)) 5,000 unit BID SC Last administered on 06/16/16 09:01; Admin Dose 5,000 UNIT; Start 06/14/16 at 09:00 Vancomycin HCl (Vanco Iv Per Pharmacy) PER PHARMACY DOSING NOTE XX ; Start 06/14 at 00:30 Miscellaneous Information 1 ea NOTE XX ; Start 06/14/16 at 00:30 Glucose (Glutose) 15 gm Q15M PRN PO DECREASED GLUCOSE; Start 06/14/16 at 00:30 Glucose (Glutose) 22.5 gm Q15M PRN PO DECREASED GLUCOSE; Start 06/14/16 at 00: 30 Dextrose (D50w Syringe) 25 ml Q15M PRN IV DECREASED GLUCOSE; Start 06/14/16 at 00:30 Dextrose (D50w Syringe) 50 ml Q15M PRN IV DECREASED GLUCOSE; Start 06/14/16 at 00:30 Glucagon (Glucagen) 1 mg Q15M PRN IM DECREASED GLUCOSE; Start 06/14/16 at 00:30 Glucose (Glutose) 15 gm Q15M PRN BUCCAL DECREASED GLUCOSE; Start 06/14/16 at 00 :30 Diagnostic Test (Pha) (Accucheck) 1 ea 02 XX ; Start 06/14/16 at 02:00 Famotidine (Pepcid) 20 mg DAILY PO Last administered on 06/16/16 08:58; Admin Dose 20 MG; Start 06/14/16 at 09:00 Amlodipine Besylate (Norvasc) 5 mg BID PO Last administered on 06/16/16 09:41 ; Admin Dose 5 MG; Start 06/14/16 at 13:30 Clonidine (Catapres) 0.2 mg Q8 PRN PO Systolic >160 Last administered on 16:52; Admin Dose 0.2 MG; Start 06/14/16 at 13:00 Promethazine HCl/ Codeine (Phenergan/ Codeine) 5 ml Q4H PRN PO COUGH Last administered on 06/15/16 00:09; Admin Dose 5 ML; Start 06/15/16 at 00:00 Insulin Glargine (Lantus) 14 unit QHS SC Last administered on 06/15/16 21:34; Admin Dose 14 UNIT; Start 06/15/16 at 21:00 Pantoprazole (Protonix Tab) 40 mg DAILY@06 PO Last administered on 06/16/16 06 :35; Admin Dose 40 MG; Start 06/16/16 at 06:00 Diphenhydramine HCl (Benadryl) 25 mg HS PRN PO INSOMNIA Last administered on 22:43; Admin Dose 25 MG; Start 06/15/16 at 21:30 Hydralazine HCl (Apresoline) 75 mg Q8 PO Last administered on 06/16/16 13:41; Admin Dose 75 MG; Start 06/16/16 at 14:00 CECILIA DAMICO Jun 16, 2016 18:42
[2016-06-16 19:54] LABS: CK-MB 2.32 ng/ml (0.0-2.4)
[2016-06-16 19:55] LABS: TROPONIN-I 0.02 ng/ml (0.00-0.12)
[2016-06-16] MEDS: ATORVASTATIN 10 MG TAB PO SCH (20:46)
[2016-06-16] MEDS: INSULIN GLARGINE [LANtus] 3 ML PEN SC SCH (21:02)
[2016-06-17] VITALS (14 sets, daily range): BP systolic 136–187; BP diastolic 58–87; PULSE 69–74; RESP 16–20
[2016-06-17] MEDS: ACCU-CHEK XX SCH ×5 (01:25→21:05)
[2016-06-17] MEDS: LEVALBUTEROL (HFA) 15 GM INHALER INH SCH ×3 (01:35→16:00)
[2016-06-17 01:42] LABS: CK-MB 1.94 ng/ml (0.0-2.4)
[2016-06-17 01:43] LABS: TROPONIN-I 0.023 ng/ml (0.00-0.12)
[2016-06-17] MEDS: PANTOPRAZOLE (EC) 40 MG TAB PO SCH (05:47)
[2016-06-17 06:28] LABS: POTASSIUM 4.4 mmol/L (3.5-5.1)
[2016-06-17 06:31] LABS: CREATININE 8.61 mg/dl (0.61-1.24)
[2016-06-17 06:41] LABS: BASOPHIL # 0.1 10^3/ul (0.0-0.1); EOSINOPHILS # 0.2 10^3/ul (0.0-0.5); EOSINOPHILS % 4.5 % (0.0-7.0); HEMATOCRIT 29.7 % (42.0-52.0); HEMOGLOBIN 9.9 g/dl (14.0-18.0); LYMPHOCYTES # 0.8 10^3/ul (0.8-2.9); LYMPHOCYTES % 14.9 % (15.0-51.0); MEAN CORPUSCULAR HEMOGLOBIN 33.6 pg (29.0-33.0); MEAN CORPUSCULAR HGB CONC 33.4 g/dl (32.0-37.0); MEAN CORPUSCULAR VOLUME 100.7 fl (82.0-101.0); MEAN PLATELET VOLUME 7.9 fl (7.4-10.4); MONOCYTE # 0.6 10^3/ul (0.3-0.9); MONOCYTES % 11.6 % (0.0-11.0); NEUTROPHIL # 3.6 10^3/ul (1.6-7.5); PLATELET COUNT 227 10^3/UL (140-440); RED BLOOD COUNT 2.95 10^6/ul (4.70-6.10); RED CELL DISTRIBUTION WIDTH 15.9 % (11.5-14.5); UNCORRECTED WBC 5.3 10^3/ul (4.8-10.8); WHITE BLOOD COUNT 5.3 10^3/ul (4.8-10.8)
[2016-06-17 06:43] LABS: CONDITION 1; LH ANALYZER COMMENTS 1
[2016-06-17] MEDS: INSULIN ASPART [NOVOLOG] 3 ML PEN SC SCH ×4 (07:55→21:00)
[2016-06-17] MEDS: ASPIRIN (EC) 81 MG TAB PO SCH (08:38)
[2016-06-17] MEDS: FAMOTIDINE 20 MG TAB PO SCH (08:38)
[2016-06-17] MEDS: CALCIUM ACETATE 667 MG CAP PO SCH ×3 (08:38→17:41)
[2016-06-17] MEDS: FERROUS SULFATE (EC) 325 MG TAB PO SCH ×2 (08:38→20:11)
[2016-06-17] MEDS: CLOPIDOGREL 75 MG TAB PO SCH (08:38)
[2016-06-17] MEDS: CHOLECALCIFEROL 400 UNITS TAB PO SCH (08:38)
[2016-06-17] MEDS: SEVELAMER CARBONATE 0.8 GM PKT PO SCH ×3 (08:38→17:40)
[2016-06-17] MEDS: METOPROLOL 25 MG TAB PO SCH ×2 (08:39→20:24)
[2016-06-17] MEDS: AMLODIPINE 5 MG TAB PO SCH ×2 (08:40→20:24)
[2016-06-17] MEDS: HEPARIN 5,000 UNIT/0.5 ML SYG SC SCH ×2 (08:49→20:26)
--- NOTE | 2016-06-17 10:05 | CONS ---
Date/Time of Note Date/Time of Note DATE: 06/17/16 TIME: 10:03 Assessment/Plan Assessment/Plan Additional Assessment/Plan 1. Abnormal electrocardiogram, assess for acute coronary syndrome- no CP, doubt ischemia. 2. History of recent negative stress, May 2015- no intervention planned. 3. History of percutaneous transluminal coronary angioplasty and stent placement in 2014 to the left main left anterior descending. No current chest pain. 4. Hypertension, mildly elevated- con'tt o optimize BP with primary team. 5. History of dyslipidemia. 6. Pleural effusion, status post thoracentesis - better now, improved respiratory status. 7. Possible pneumonia- oin anti-bx. 8. Diabetes mellitus. 9. End-stage renal disease, on hemodialysis. Consultation Date/Type/Reason Admit Date/Time Jun 13, 2016 at 14:48 Initial Consult Date Type of Consultation: Pulm 24 HR Interval Summary Free Text/Dictation Pt stable - improved with thoracocentesis - will adjust Rx as needed. ROS: No fever, no chills, no nausea, no vomiting, no diarrhea/constipation No recent weight changes No chest pain, no PND, no orthopnea - better SOB No dizziness, blurred vision No thirst, no heat or cold intolerance Exam/Review of Systems Vital Signs Vitals Vital Signs Date Time Temp Pulse Resp B/P Pulse Ox O2 Delivery O2 Flow Rate FiO2 06/17/16 08:48 69 06/17/16 07:21 98.2 20 137/58 91 06/16/16 03:35 Nasal Cannula 2.0 Intake and Output 06/16/16 06/16/16 06/17/16 15:00 23:00 07:00 Intake Total 700 ml Balance 700 ml Exam General: WN/WD/NAD, AOx 3 HEENT: Unicetric/atraumatic/EOMI (follow commands) NECK: JVD elevated, no thyromegaly Lymph: no lymphadenopathy HEART: regular with no S3, II/ systolic murmur at apex LUNGS: Coarse sounds ABD: soft, NT, ND, +BS : Intact Neuro: non focal SKIN: chronic changes EXT: trace edema Results Result Diagram: 06/17/16 0545 06/17/16 0545 Results 24 hrs Laboratory Tests Test 06/16/16 11:34 06/16/16 16:50 06/16/16 18:30 06/16/16 20:44 Bedside Glucose 90 221 H 200 Creatine Kinase 132 Creatine Kinase Index 1.8 Creatinine Kinase MB (Mass) 2.32 Troponin I 0.020 Test 06/17/16 01:05 06/17/16 01:23 06/17/16 05:45 06/17/16 07:49 Creatine Kinase 109 Creatine Kinase Index 1.8 Creatinine Kinase MB (Mass) 1.94 Troponin I 0.023 Bedside Glucose 107 116 Anion Gap 17 H Basophils # 0.1 Basophils % 1.0 Blood Morphology Comment Blood Urea Nitrogen 65 H Calcium Level 9.0 Carbon Dioxide Level 24 Chloride Level 97 Cholesterol Level 80 L Cholesterol/HDL Ratio 2.0 Creatinine 8.61 H Eosinophils # 0.2 Eosinophils % 4.5 Glucose Level 155 HDL Cholesterol 40 Hematocrit 29.7 L Hemoglobin 9.9 L Hemoglobin A1c 5.2 LDL Cholesterol, Calculated 22 Lymphocytes # 0.8 Lymphocytes % 14.9 L Mean Corpuscular Hemoglobin 33.6 H Mean Corpuscular Hemoglobin Concent 33.4 Mean Corpuscular Volume 100.7 Mean Platelet Volume 7.9 Monocytes # 0.6 Monocytes % 11.6 H Neutrophils # 3.6 Neutrophils % 68.0 Nucleated Red Blood Cells # 0.0 Nucleated Red Blood Cells % 0.0 Platelet Count 227 Potassium Level 4.4 Red Blood Count 2.95 L Red Cell Distribution Width 15.9 H Sodium Level 134 L Triglycerides Level 88 White Blood Count 5.3 Medications Medications Current Medications IV Flush (NS 10 ml) 10 ml PRN PRN IV FLUSH LINE; Start 06/13/16 at 19:00 Aspirin (Halfprin) 81 mg DAILY PO Last administered on 06/17/16 08:38; Admin Dose 81 MG; Start 06/14/16 at 09:00 Atorvastatin Calcium (Lipitor) 10 mg QHS PO Last administered on 06/16/16 20: 46; Admin Dose 10 MG; Start 06/14/16 at 21:00 Cholecalciferol (Vitamin D) 400 units DAILY PO Last administered on 06/17/16 08:38; Admin Dose 400 UNITS; Start 06/14/16 at 09:00 Clopidogrel Bisulfate (plaVIX) 75 mg DAILY PO Last administered on 06/17/16 08 :38; Admin Dose 75 MG; Start 06/14/16 at 09:00 Ferrous Sulfate (Ferrous Sulfate (Ec)) 325 mg BID PO Last administered on 08:38; Admin Dose 325 MG; Start 06/14/16 at 09:00 Metoprolol Tartrate (Lopressor) 25 mg BID PO Last administered on 06/16/16 20: 47; Admin Dose 25 MG; Start 06/14/16 at 09:00 Hydralazine HCl (Apresoline) 10 mg Q4H PRN IV for SBP more than 170 Last administered on 06/16/16 03:02; Admin Dose 10 MG; Start 06/14/16 at 00:00 Acetaminophen (Tylenol Tab) 500 mg Q4H PRN PO PAIN AND OR ELEVATED TEMP Last administered on 06/15/16 21:28; Admin Dose 500 MG; Start 06/14/16 at 00:00 Heparin Sodium (Porcine) (Heparin (5000 Units/0.5 ml)) 5,000 unit BID SC Last administered on 06/17/16 08:49; Admin Dose 5,000 UNIT; Start 06/14/16 at 09:00 Vancomycin HCl (Vanco Iv Per Pharmacy) PER PHARMACY DOSING NOTE XX ; Start 06/14 at 00:30 Miscellaneous Information 1 ea NOTE XX ; Start 06/14/16 at 00:30 Glucose (Glutose) 15 gm Q15M PRN PO DECREASED GLUCOSE; Start 06/14/16 at 00:30 Glucose (Glutose) 22.5 gm Q15M PRN PO DECREASED GLUCOSE; Start 06/14/16 at 00: 30 Dextrose (D50w Syringe) 25 ml Q15M PRN IV DECREASED GLUCOSE; Start 06/14/16 at 00:30 Dextrose (D50w Syringe) 50 ml Q15M PRN IV DECREASED GLUCOSE; Start 06/14/16 at 00:30 Glucagon (Glucagen) 1 mg Q15M PRN IM DECREASED GLUCOSE; Start 06/14/16 at 00:30 Glucose (Glutose) 15 gm Q15M PRN BUCCAL DECREASED GLUCOSE; Start 06/14/16 at 00 :30 Diagnostic Test (Pha) (Accucheck) 1 ea 02 XX ; Start 06/14/16 at 02:00 Famotidine (Pepcid) 20 mg DAILY PO Last administered on 06/17/16 08:38; Admin Dose 20 MG; Start 06/14/16 at 09:00 Amlodipine Besylate (Norvasc) 5 mg BID PO Last administered on 06/16/16 20:46 ; Admin Dose 5 MG; Start 06/14/16 at 13:30 Clonidine (Catapres) 0.2 mg Q8 PRN PO Systolic >160 Last administered on 16:52; Admin Dose 0.2 MG; Start 06/14/16 at 13:00 Promethazine HCl/ Codeine (Phenergan/ Codeine) 5 ml Q4H PRN PO COUGH Last administered on 06/15/16 00:09; Admin Dose 5 ML; Start 06/15/16 at 00:00 Insulin Glargine (Lantus) 14 unit QHS SC Last administered on 06/16/16 21:02; Admin Dose 14 UNIT; Start 06/15/16 at 21:00 Pantoprazole (Protonix Tab) 40 mg DAILY@06 PO Last administered on 06/17/16 05 :47; Admin Dose 40 MG; Start 06/16/16 at 06:00 Diphenhydramine HCl (Benadryl) 25 mg HS PRN PO INSOMNIA Last administered on 22:43; Admin Dose 25 MG; Start 06/15/16 at 21:30 Hydralazine HCl (Apresoline) 75 mg Q8 PO Last administered on 06/17/16 05:47; Admin Dose 75 MG; Start 06/16/16 at 14:00 CRIS BERNARD MD Jun 17, 2016 10:05
--- NOTE | 2016-06-17 11:37 | CONS ---
Date/Time of Note Date/Time of Note DATE: 06/17/16 TIME: 11:33 Assessment/Plan Assessment/Plan Additional Assessment/Plan Assessment and recommendations; next 1. Patient admitted for recurrent right pleural effusion status post thoracentesis with clear lung examination without any evidence of recommendation of pleural fluid. 2. History of coronary artery disease status post bypass surgery in 2010. 3. End-stage renal disease on hemodialysis. 4. Diabetes. 5. Hypertension. 6. Patient so far has had four thoracentesis performed. Continue current treatment. As outlined in my note from yesterday, the patient could be discharged home, however he needs to be evaluated for any home oxygen needs. If the patient has another recurrent effusion on the right side, he would need to have a VATS procedure done with a pleurodesis performed. Consultation Date/Type/Reason Admit Date/Time Jun 13, 2016 at 14:48 Type of Consultation: Pulm 24 HR Interval Summary Free Text/Dictation Patient condition is stable. Denies any chest pain, shortness of breath. Any cough, wheezing, fever or chills. General examination; middle-aged man, currently in no distress. Exam/Review of Systems Vital Signs Vitals Vital Signs Date Time Temp Pulse Resp B/P Pulse Ox O2 Delivery O2 Flow Rate FiO2 06/17/16 11:15 Nasal Cannula 06/17/16 11:12 98.2 70 20 152/70 96 06/16/16 03:35 2.0 Intake and Output 06/16/16 06/16/16 06/17/16 15:00 23:00 07:00 Intake Total 700 ml Balance 700 ml Exam HEENT examination; supple neck, no JVD. No lymphadenopathy. Pharynx is clear. Good dentition. Pupils are midsize and reactive to light bilaterally. No thyromegaly. Chest examination; clear to auscultation bilaterally. S1-S2 audible, no murmurs. Regular rhythm. There is a well-healed sternotomy scar. Abdomen examination; soft, nontender, no organomegaly. Bowel sounds audible. Extremity examination; no peripheral edema. [employer] examination; no focal deficit. Results Result Diagram: 06/17/16 0545 06/17/16 0545 Results 24 hrs Laboratory Tests Test 06/16/16 11:34 06/16/16 16:50 06/16/16 18:30 06/16/16 20:44 Bedside Glucose 90 221 H 200 Creatine Kinase 132 Creatine Kinase Index 1.8 Creatinine Kinase MB (Mass) 2.32 Troponin I 0.020 Test 06/17/16 01:05 06/17/16 01:23 06/17/16 05:45 06/17/16 07:49 Creatine Kinase 109 Creatine Kinase Index 1.8 Creatinine Kinase MB (Mass) 1.94 Troponin I 0.023 Bedside Glucose 107 116 Anion Gap 17 H Basophils # 0.1 Basophils % 1.0 Blood Morphology Comment Blood Urea Nitrogen 65 H Calcium Level 9.0 Carbon Dioxide Level 24 Chloride Level 97 Cholesterol Level 80 L Cholesterol/HDL Ratio 2.0 Creatinine 8.61 H Eosinophils # 0.2 Eosinophils % 4.5 Glucose Level 155 HDL Cholesterol 40 Hematocrit 29.7 L Hemoglobin 9.9 L Hemoglobin A1c 5.2 LDL Cholesterol, Calculated 22 Lymphocytes # 0.8 Lymphocytes % 14.9 L Mean Corpuscular Hemoglobin 33.6 H Mean Corpuscular Hemoglobin Concent 33.4 Mean Corpuscular Volume 100.7 Mean Platelet Volume 7.9 Monocytes # 0.6 Monocytes % 11.6 H Neutrophils # 3.6 Neutrophils % 68.0 Nucleated Red Blood Cells # 0.0 Nucleated Red Blood Cells % 0.0 Platelet Count 227 Potassium Level 4.4 Red Blood Count 2.95 L Red Cell Distribution Width 15.9 H Sodium Level 134 L Triglycerides Level 88 White Blood Count 5.3 Medications Medications Current Medications IV Flush (NS 10 ml) 10 ml PRN PRN IV FLUSH LINE; Start 06/13/16 at 19:00 Aspirin (Halfprin) 81 mg DAILY PO Last administered on 06/17/16 08:38; Admin Dose 81 MG; Start 06/14/16 at 09:00 Atorvastatin Calcium (Lipitor) 10 mg QHS PO Last administered on 06/16/16 20: 46; Admin Dose 10 MG; Start 06/14/16 at 21:00 Cholecalciferol (Vitamin D) 400 units DAILY PO Last administered on 06/17/16 08:38; Admin Dose 400 UNITS; Start 06/14/16 at 09:00 Clopidogrel Bisulfate (plaVIX) 75 mg DAILY PO Last administered on 06/17/16 08 :38; Admin Dose 75 MG; Start 06/14/16 at 09:00 Ferrous Sulfate (Ferrous Sulfate (Ec)) 325 mg BID PO Last administered on 08:38; Admin Dose 325 MG; Start 06/14/16 at 09:00 Metoprolol Tartrate (Lopressor) 25 mg BID PO Last administered on 06/16/16 20: 47; Admin Dose 25 MG; Start 06/14/16 at 09:00 Hydralazine HCl (Apresoline) 10 mg Q4H PRN IV for SBP more than 170 Last administered on 06/16/16 03:02; Admin Dose 10 MG; Start 06/14/16 at 00:00 Acetaminophen (Tylenol Tab) 500 mg Q4H PRN PO PAIN AND OR ELEVATED TEMP Last administered on 06/15/16 21:28; Admin Dose 500 MG; Start 06/14/16 at 00:00 Heparin Sodium (Porcine) (Heparin (5000 Units/0.5 ml)) 5,000 unit BID SC Last administered on 06/17/16 08:49; Admin Dose 5,000 UNIT; Start 06/14/16 at 09:00 Vancomycin HCl (Vanco Iv Per Pharmacy) PER PHARMACY DOSING NOTE XX ; Start 06/14 at 00:30 Miscellaneous Information 1 ea NOTE XX ; Start 06/14/16 at 00:30 Glucose (Glutose) 15 gm Q15M PRN PO DECREASED GLUCOSE; Start 06/14/16 at 00:30 Glucose (Glutose) 22.5 gm Q15M PRN PO DECREASED GLUCOSE; Start 06/14/16 at 00: 30 Dextrose (D50w Syringe) 25 ml Q15M PRN IV DECREASED GLUCOSE; Start 06/14/16 at 00:30 Dextrose (D50w Syringe) 50 ml Q15M PRN IV DECREASED GLUCOSE; Start 06/14/16 at 00:30 Glucagon (Glucagen) 1 mg Q15M PRN IM DECREASED GLUCOSE; Start 06/14/16 at 00:30 Glucose (Glutose) 15 gm Q15M PRN BUCCAL DECREASED GLUCOSE; Start 06/14/16 at 00 :30 Diagnostic Test (Pha) (Accucheck) 1 ea 02 XX ; Start 06/14/16 at 02:00 Famotidine (Pepcid) 20 mg DAILY PO Last administered on 06/17/16 08:38; Admin Dose 20 MG; Start 06/14/16 at 09:00 Amlodipine Besylate (Norvasc) 5 mg BID PO Last administered on 06/16/16 20:46 ; Admin Dose 5 MG; Start 06/14/16 at 13:30 Clonidine (Catapres) 0.2 mg Q8 PRN PO Systolic >160 Last administered on 16:52; Admin Dose 0.2 MG; Start 06/14/16 at 13:00 Promethazine HCl/ Codeine (Phenergan/ Codeine) 5 ml Q4H PRN PO COUGH Last administered on 06/15/16 00:09; Admin Dose 5 ML; Start 06/15/16 at 00:00 Insulin Glargine (Lantus) 14 unit QHS SC Last administered on 06/16/16 21:02; Admin Dose 14 UNIT; Start 06/15/16 at 21:00 Pantoprazole (Protonix Tab) 40 mg DAILY@06 PO Last administered on 06/17/16 05 :47; Admin Dose 40 MG; Start 06/16/16 at 06:00 Diphenhydramine HCl (Benadryl) 25 mg HS PRN PO INSOMNIA Last administered on 22:43; Admin Dose 25 MG; Start 06/15/16 at 21:30 Hydralazine HCl (Apresoline) 75 mg Q8 PO Last administered on 06/17/16 05:47; Admin Dose 75 MG; Start 06/16/16 at 14:00 BOONE POLO Jun 17, 2016 11:36
--- NOTE | 2016-06-17 14:13 | PN ---
Date/Time of Note Date/Time of Note DATE: 06/17/16 TIME: 14:11 Assessment/Plan VTE Prophylaxis VTE Prophylaxis Intervention: other Lines/Catheters Urinary Cath still in place: No Assessment/Plan Problems: (1) Pleural effusion Status: Chronic (2) Anemia Status: Chronic Qualifiers: Anemia type: unspecified type Qualified Code: D64.9 - Anemia, unspecified type (3) End stage kidney disease Status: Chronic (4) Shortness of breath Status: Acute (5) Weakness Status: Acute Assessment/Plan on hd ok to dc from nephrology perspective Exam/Review of Systems Vital Signs Vitals Vital Signs Date Time Temp Pulse Resp B/P Pulse Ox O2 Delivery O2 Flow Rate FiO2 06/17/16 14:01 74 06/17/16 13:05 18 06/17/16 11:15 Nasal Cannula 06/17/16 11:12 98.2 152/70 96 06/16/16 03:35 2.0 Intake and Output 06/16/16 06/16/16 06/17/16 15:00 23:00 07:00 Intake Total 700 ml Balance 700 ml Exam Constitutional: alert, oriented Psych: no complaints Head: normocephalic Eyes: nl conjunctiva ENMT: nl external ears & nose Neck: supple Respiratory: diminished breath sounds Cardiovascular: regular rate and rhythm Gastrointestinal: soft Musculoskeletal: nl extremities to inspection Results Result Diagram: 06/17/16 0545 06/17/16 0545 Results 24 hrs Laboratory Tests Test 06/16/16 16:50 06/16/16 18:30 06/16/16 20:44 06/17/16 01:05 Bedside Glucose 221 H 200 Creatine Kinase 132 109 Creatine Kinase Index 1.8 1.8 Creatinine Kinase MB (Mass) 2.32 1.94 Troponin I 0.020 0.023 Test 06/17/16 01:23 06/17/16 05:45 06/17/16 07:49 06/17/16 11:32 Bedside Glucose 107 116 139 Anion Gap 17 H Basophils # 0.1 Basophils % 1.0 Blood Morphology Comment Blood Urea Nitrogen 65 H Calcium Level 9.0 Carbon Dioxide Level 24 Chloride Level 97 Cholesterol Level 80 L Cholesterol/HDL Ratio 2.0 Creatinine 8.61 H Eosinophils # 0.2 Eosinophils % 4.5 Glucose Level 155 HDL Cholesterol 40 Hematocrit 29.7 L Hemoglobin 9.9 L Hemoglobin A1c 5.2 LDL Cholesterol, Calculated 22 Lymphocytes # 0.8 Lymphocytes % 14.9 L Mean Corpuscular Hemoglobin 33.6 H Mean Corpuscular Hemoglobin Concent 33.4 Mean Corpuscular Volume 100.7 Mean Platelet Volume 7.9 Monocytes # 0.6 Monocytes % 11.6 H Neutrophils # 3.6 Neutrophils % 68.0 Nucleated Red Blood Cells # 0.0 Nucleated Red Blood Cells % 0.0 Platelet Count 227 Potassium Level 4.4 Red Blood Count 2.95 L Red Cell Distribution Width 15.9 H Sodium Level 134 L Triglycerides Level 88 White Blood Count 5.3 Medications Medications Current Medications IV Flush (NS 10 ml) 10 ml PRN PRN IV FLUSH LINE; Start 06/13/16 at 19:00 Aspirin (Halfprin) 81 mg DAILY PO Last administered on 06/17/16 08:38; Admin Dose 81 MG; Start 06/14/16 at 09:00 Atorvastatin Calcium (Lipitor) 10 mg QHS PO Last administered on 06/16/16 20: 46; Admin Dose 10 MG; Start 06/14/16 at 21:00 Cholecalciferol (Vitamin D) 400 units DAILY PO Last administered on 06/17/16 08:38; Admin Dose 400 UNITS; Start 06/14/16 at 09:00 Clopidogrel Bisulfate (plaVIX) 75 mg DAILY PO Last administered on 06/17/16 08 :38; Admin Dose 75 MG; Start 06/14/16 at 09:00 Ferrous Sulfate (Ferrous Sulfate (Ec)) 325 mg BID PO Last administered on 08:38; Admin Dose 325 MG; Start 06/14/16 at 09:00 Metoprolol Tartrate (Lopressor) 25 mg BID PO Last administered on 06/16/16 20: 47; Admin Dose 25 MG; Start 06/14/16 at 09:00 Hydralazine HCl (Apresoline) 10 mg Q4H PRN IV for SBP more than 170 Last administered on 06/16/16 03:02; Admin Dose 10 MG; Start 06/14/16 at 00:00 Acetaminophen (Tylenol Tab) 500 mg Q4H PRN PO PAIN AND OR ELEVATED TEMP Last administered on 06/15/16 21:28; Admin Dose 500 MG; Start 06/14/16 at 00:00 Heparin Sodium (Porcine) (Heparin (5000 Units/0.5 ml)) 5,000 unit BID SC Last administered on 06/17/16 08:49; Admin Dose 5,000 UNIT; Start 06/14/16 at 09:00 Vancomycin HCl (Vanco Iv Per Pharmacy) PER PHARMACY DOSING NOTE XX ; Start 06/14 at 00:30 Miscellaneous Information 1 ea NOTE XX ; Start 06/14/16 at 00:30 Glucose (Glutose) 15 gm Q15M PRN PO DECREASED GLUCOSE; Start 06/14/16 at 00:30 Glucose (Glutose) 22.5 gm Q15M PRN PO DECREASED GLUCOSE; Start 06/14/16 at 00: 30 Dextrose (D50w Syringe) 25 ml Q15M PRN IV DECREASED GLUCOSE; Start 06/14/16 at 00:30 Dextrose (D50w Syringe) 50 ml Q15M PRN IV DECREASED GLUCOSE; Start 06/14/16 at 00:30 Glucagon (Glucagen) 1 mg Q15M PRN IM DECREASED GLUCOSE; Start 06/14/16 at 00:30 Glucose (Glutose) 15 gm Q15M PRN BUCCAL DECREASED GLUCOSE; Start 06/14/16 at 00 :30 Diagnostic Test (Pha) (Accucheck) 1 ea 02 XX ; Start 06/14/16 at 02:00 Famotidine (Pepcid) 20 mg DAILY PO Last administered on 06/17/16 08:38; Admin Dose 20 MG; Start 06/14/16 at 09:00 Amlodipine Besylate (Norvasc) 5 mg BID PO Last administered on 06/16/16 20:46 ; Admin Dose 5 MG; Start 06/14/16 at 13:30 Clonidine (Catapres) 0.2 mg Q8 PRN PO Systolic >160 Last administered on 16:52; Admin Dose 0.2 MG; Start 06/14/16 at 13:00 Promethazine HCl/ Codeine (Phenergan/ Codeine) 5 ml Q4H PRN PO COUGH Last administered on 06/15/16 00:09; Admin Dose 5 ML; Start 06/15/16 at 00:00 Insulin Glargine (Lantus) 14 unit QHS SC Last administered on 06/16/16 21:02; Admin Dose 14 UNIT; Start 06/15/16 at 21:00 Pantoprazole (Protonix Tab) 40 mg DAILY@06 PO Last administered on 06/17/16 05 :47; Admin Dose 40 MG; Start 06/16/16 at 06:00 Diphenhydramine HCl (Benadryl) 25 mg HS PRN PO INSOMNIA Last administered on 22:43; Admin Dose 25 MG; Start 06/15/16 at 21:30 Hydralazine HCl (Apresoline) 75 mg Q8 PO Last administered on 06/17/16 05:47; Admin Dose 75 MG; Start 06/16/16 at 14:00 Miscellaneous Information (*Rx Drug Level Order Reminder*) 1 ONCE ONCE XX ; Start 06/18/16 at 05:00; Stop 06/18/16 at 05:01 ENEDINA YOUNGER MD Jun 17, 2016 14:12
--- NOTE | 2016-06-17 14:42 | RADRPT ---
Vent Rate: 70 bpm RR Interval: 0 msec LA Interval: 228 msec QRS Duration: 88 msec QT Interval: 430 msec QTC Interval: 464 msec P-R-T [employer]: -5 - 21 - 88 degrees Electronic atrial pacemaker Nonspecific T wave abnormality Prolonged QT Abnormal ECG Electronically Signed By: Daniel Zavala [id number]
--- NOTE | 2016-06-17 16:48 | PN ---
Date/Time of Note Date/Time of Note DATE: 06/17/16 TIME: 16:47 Assessment/Plan VTE Prophylaxis VTE Prophylaxis Intervention: SCD's Lines/Catheters Urinary Cath still in place: No Assessment/Plan Chief Complaint/Hosp Course Assessment and plan - Right pleural effusion, status post thoracentesis. Follow-up on culture. Dr. Dale is following in pulmonology consultation. - Possible healthcare acquired pneumonia - End-stage renal disease, continue hemodialysis. - Diabetes mellitus type 2, continue Lantus and NovoLog - Hypertension. Dr. De Santiago is following and cardiology consultation. - Coronary artery disease, status post coronary artery bypass graft. Continue aspirin and Plavix. - Permanent pacemaker. No acute issues. - Dyslipidemia. Continue Lipitor. Continue heparin for deep venous thrombosis prophylaxis and Protonix for peptic ulcer disease prophylaxis. Further recommendations based on clinical course. Plan of care discussed with Dr. Price. Problems: Subjective 24 Hr Interval Summary Free Text/Dictation Patient's complains of difficulty breathing, requiring low-flow supplemental oxygen, will obtain ABG on room air tomorrow to evaluate from need for home oxygen. Exam/Review of Systems Vital Signs Vitals Vital Signs Date Time Temp Pulse Resp B/P Pulse Ox O2 Delivery O2 Flow Rate FiO2 06/17/16 15:45 152/69 06/17/16 15:21 98.7 71 20 98 06/17/16 11:15 Nasal Cannula 06/16/16 03:35 2.0 Intake and Output 06/16/16 06/16/16 06/17/16 15:00 23:00 07:00 Intake Total 700 ml Balance 700 ml Exam Constitutional: alert Psych: no complaints Head: atraumatic, normocephalic Eyes: nl conjunctiva ENMT: nl external ears & nose Neck: non-tender, supple Respiratory: clear to auscultation Cardiovascular: nl pulses Gastrointestinal: non-tender, soft Musculoskeletal: nl extremities to inspection Extremities: normal pulses Neurological: SYSTEM CONTROLLER II-XII intact Skin: nl turgor Results Result Diagram: 06/17/16 0545 06/17/1645 Results 24 hrs Laboratory Tests Test 06/16/16 16:50 06/16/16 18:30 06/16/16 20:44 06/17/16 01:05 Bedside Glucose 221 H 200 Creatine Kinase 132 109 Creatine Kinase Index 1.8 1.8 Creatinine Kinase MB (Mass) 2.32 1.94 Troponin I 0.020 0.023 Test 06/17/16 01:23 06/17/16 05:45 06/17/16 07:49 06/17/16 11:32 Bedside Glucose 107 116 139 Anion Gap 17 H Basophils # 0.1 Basophils % 1.0 Blood Morphology Comment Blood Urea Nitrogen 65 H Calcium Level 9.0 Carbon Dioxide Level 24 Chloride Level 97 Cholesterol Level 80 L Cholesterol/HDL Ratio 2.0 Creatinine 8.61 H Eosinophils # 0.2 Eosinophils % 4.5 Glucose Level 155 HDL Cholesterol 40 Hematocrit 29.7 L Hemoglobin 9.9 L Hemoglobin A1c 5.2 LDL Cholesterol, Calculated 22 Lymphocytes # 0.8 Lymphocytes % 14.9 L Mean Corpuscular Hemoglobin 33.6 H Mean Corpuscular Hemoglobin Concent 33.4 Mean Corpuscular Volume 100.7 Mean Platelet Volume 7.9 Monocytes # 0.6 Monocytes % 11.6 H Neutrophils # 3.6 Neutrophils % 68.0 Nucleated Red Blood Cells # 0.0 Nucleated Red Blood Cells % 0.0 Platelet Count 227 Potassium Level 4.4 Red Blood Count 2.95 L Red Cell Distribution Width 15.9 H Sodium Level 134 L Triglycerides Level 88 White Blood Count 5.3 Medications Medications Current Medications IV Flush (NS 10 ml) 10 ml PRN PRN IV FLUSH LINE; Start 06/13/16 at 19:00 Aspirin (Halfprin) 81 mg DAILY PO Last administered on 06/17/16 08:38; Admin Dose 81 MG; Start 06/14/16 at 09:00 Atorvastatin Calcium (Lipitor) 10 mg QHS PO Last administered on 06/16/16 20: 46; Admin Dose 10 MG; Start 06/14/16 at 21:00 Cholecalciferol (Vitamin D) 400 units DAILY PO Last administered on 06/17/16 08:38; Admin Dose 400 UNITS; Start 06/14/16 at 09:00 Clopidogrel Bisulfate (plaVIX) 75 mg DAILY PO Last administered on 06/17/16 08 :38; Admin Dose 75 MG; Start 06/14/16 at 09:00 Ferrous Sulfate (Ferrous Sulfate (Ec)) 325 mg BID PO Last administered on 08:38; Admin Dose 325 MG; Start 06/14/16 at 09:00 Metoprolol Tartrate (Lopressor) 25 mg BID PO Last administered on 06/16/16 20: 47; Admin Dose 25 MG; Start 06/14/16 at 09:00 Hydralazine HCl (Apresoline) 10 mg Q4H PRN IV for SBP more than 170 Last administered on 06/16/16 03:02; Admin Dose 10 MG; Start 06/14/16 at 00:00 Acetaminophen (Tylenol Tab) 500 mg Q4H PRN PO PAIN AND OR ELEVATED TEMP Last administered on 06/15/16 21:28; Admin Dose 500 MG; Start 06/14/16 at 00:00 Heparin Sodium (Porcine) (Heparin (5000 Units/0.5 ml)) 5,000 unit BID SC Last administered on 06/17/16 08:49; Admin Dose 5,000 UNIT; Start 06/14/16 at 09:00 Miscellaneous Information 1 ea NOTE XX ; Start 06/14/16 at 00:30 Glucose (Glutose) 15 gm Q15M PRN PO DECREASED GLUCOSE; Start 06/14/16 at 00:30 Glucose (Glutose) 22.5 gm Q15M PRN PO DECREASED GLUCOSE; Start 06/14/16 at 00: 30 Dextrose (D50w Syringe) 25 ml Q15M PRN IV DECREASED GLUCOSE; Start 06/14/16 at 00:30 Dextrose (D50w Syringe) 50 ml Q15M PRN IV DECREASED GLUCOSE; Start 06/14/16 at 00:30 Glucagon (Glucagen) 1 mg Q15M PRN IM DECREASED GLUCOSE; Start 06/14/16 at 00:30 Glucose (Glutose) 15 gm Q15M PRN BUCCAL DECREASED GLUCOSE; Start 06/14/16 at 00 :30 Diagnostic Test (Pha) (Accucheck) 1 ea 02 XX ; Start 06/14/16 at 02:00 Famotidine (Pepcid) 20 mg DAILY PO Last administered on 06/17/16 08:38; Admin Dose 20 MG; Start 06/14/16 at 09:00 Amlodipine Besylate (Norvasc) 5 mg BID PO Last administered on 06/16/16 20:46 ; Admin Dose 5 MG; Start 06/14/16 at 13:30 Clonidine (Catapres) 0.2 mg Q8 PRN PO Systolic >160 Last administered on 16:52; Admin Dose 0.2 MG; Start 06/14/16 at 13:00 Promethazine HCl/ Codeine (Phenergan/ Codeine) 5 ml Q4H PRN PO COUGH Last administered on 06/15/16 00:09; Admin Dose 5 ML; Start 06/15/16 at 00:00 Insulin Glargine (Lantus) 14 unit QHS SC Last administered on 06/16/16 21:02; Admin Dose 14 UNIT; Start 06/15/16 at 21:00 Pantoprazole (Protonix Tab) 40 mg DAILY@06 PO Last administered on 06/17/16 05 :47; Admin Dose 40 MG; Start 06/16/16 at 06:00 Diphenhydramine HCl (Benadryl) 25 mg HS PRN PO INSOMNIA Last administered on 22:43; Admin Dose 25 MG; Start 06/15/16 at 21:30 Hydralazine HCl (Apresoline) 75 mg Q8 PO Last administered on 06/17/16 14:13; Admin Dose 75 MG; Start 06/16/16 at 14:00 CECILIA DAMICO Jun 17, 2016 16:48
[2016-06-17] MEDS: ATORVASTATIN 10 MG TAB PO SCH (20:12)
[2016-06-17] MEDS: INSULIN GLARGINE [LANtus] 3 ML PEN SC SCH (20:20)
--- NOTE | 2016-06-17 21:35 | CONS ---
DATE OF ADMISSION: 06/13/2016 DATE OF CONSULTATION: REASON FOR CONSULTATION: Pleural effusion. Thank you, Dr. Price, for asking me to see this patient. HISTORY OF PRESENT ILLNESS: This is a 60-year-old male currently on hemodialysis. The patient has history of coronary artery disease, had cardiac stent placed in 2013, also has history of diabetic n ephropathy, hypertension, was admitted because of fluid overload. Part of his workup included a love st x-ray and CAT scan, which showed large loculated left-sided pleural effusion. The patient has un dergone thoracentesis. Chest x-ray after thoracentesis reveals significant improvement of the right pleural effusion with trace bilateral effusions noted. PAST MEDICAL HISTORY: Significant for as noted above. SOCIAL HISTORY: No smoking, drinking, or drug use. MEDICATIONS: List reviewed. REVIEW OF SYSTEMS: Negative. PHYSICAL EXAMINATION: VITAL SIGNS: Blood pressure is 152/89, pulse is 72, respirations 18. CARDIOVASCULAR: Normal S1, S2. LUNGS: Diminished breath sounds at the bases. ABDOMEN: Soft. EXTREMITIES: Warm. No clubbing, cyanosis, or edema. LABORATORY VALUES: Hemoglobin 9.9, white count 5.3, platelet count 227. INR of 1. IMPRESSION: Bilateral pleural effusions status post thoracentesis with much improvement. At this t may, would continue monitoring the chest x-ray. If effusions recur and they are loculated, patient would benefit from a VATS decortication. Will discuss with the referring physicians. Dictated By: LILIA FELIZ MD FM/NTS Conf#: [id number] DID#: [id number] CC: EVA PRICE MD;*EndCC*
[2016-06-18] VITALS (12 sets, daily range): BP systolic 145–185; BP diastolic 62–79; PULSE 69–70; RESP 16–19
[2016-06-18] MEDS: LEVALBUTEROL (HFA) 15 GM INHALER INH SCH ×3 (00:08→17:25)
[2016-06-18] MEDS: ACCU-CHEK XX SCH ×5 (02:00→21:00)
[2016-06-18] MEDS: PANTOPRAZOLE (EC) 40 MG TAB PO SCH (05:39)
[2016-06-18 06:51] LABS: BASOPHILS % 0.7 % (0.0-2.0); EOSINOPHILS # 0.2 10^3/ul (0.0-0.5); EOSINOPHILS % 3.7 % (0.0-7.0); HEMATOCRIT 28.9 % (42.0-52.0); HEMOGLOBIN 9.9 g/dl (14.0-18.0); LYMPHOCYTES % 16.1 % (15.0-51.0); MEAN CORPUSCULAR HEMOGLOBIN 34.2 pg (29.0-33.0); MEAN CORPUSCULAR HGB CONC 34.1 g/dl (32.0-37.0); MEAN CORPUSCULAR VOLUME 100.4 fl (82.0-101.0); MEAN PLATELET VOLUME 7.8 fl (7.4-10.4); MONOCYTE # 0.7 10^3/ul (0.3-0.9); MONOCYTES % 11.9 % (0.0-11.0); NEUTROPHIL # 4.2 10^3/ul (1.6-7.5); NEUTROPHILS % 67.6 % (39.0-77.0); PLATELET COUNT 218 10^3/UL (140-440); POTASSIUM 4.1 mmol/L (3.5-5.1); RED BLOOD COUNT 2.88 10^6/ul (4.70-6.10); RED CELL DISTRIBUTION WIDTH 15.7 % (11.5-14.5); UNCORRECTED WBC 6.3 10^3/ul (4.8-10.8); WHITE BLOOD COUNT 6.3 10^3/ul (4.8-10.8)
[2016-06-18 06:53] LABS: CREATININE 6.63 mg/dl (0.61-1.24)
[2016-06-18 06:54] LABS: CALCIUM 9.1 mg/dl (8.4-10.2)
[2016-06-18 07:08] LABS: CONDITION 1; LH ANALYZER COMMENTS 1
[2016-06-18] MEDS: INSULIN ASPART [NOVOLOG] 3 ML PEN SC SCH ×4 (07:55→21:00)
[2016-06-18] MEDS: CLOPIDOGREL 75 MG TAB PO SCH (09:04)
[2016-06-18] MEDS: CALCIUM ACETATE 667 MG CAP PO SCH ×3 (09:05→17:25)
[2016-06-18] MEDS: FAMOTIDINE 20 MG TAB PO SCH (09:05)
[2016-06-18] MEDS: FERROUS SULFATE (EC) 325 MG TAB PO SCH ×2 (09:05→21:38)
[2016-06-18] MEDS: METOPROLOL 25 MG TAB PO SCH ×2 (09:05→21:55)
[2016-06-18] MEDS: AMLODIPINE 5 MG TAB PO SCH ×2 (09:05→21:55)
[2016-06-18] MEDS: ASPIRIN (EC) 81 MG TAB PO SCH (09:05)
[2016-06-18] MEDS: SEVELAMER CARBONATE 0.8 GM PKT PO SCH ×3 (09:05→17:25)
[2016-06-18] MEDS: CHOLECALCIFEROL 400 UNITS TAB PO SCH (09:06)
[2016-06-18] MEDS: HEPARIN 5,000 UNIT/0.5 ML SYG SC SCH ×2 (09:07→22:09)
[2016-06-18 09:14] LABS: Allen Test ACCEPTAB; Arterial Base Excess 3.8 mmol/L (-3.0-3); Arterial Fraction of Oxyhgb 61.1 % (93.0-99.0); Arterial HCO3 29.1 mmol/L (22.0-26.0); Arterial MetHb 0.5 % (0.0-1.5); Arterial Total Hemglobin 11.8 g/dl (12.0-18.0)
[2016-06-18 09:15] LABS: MODE ROOM AIR
[2016-06-18] MEDS: hydrALAzine 20 MG INJ IV PRN ×2 (11:27→23:37)
--- NOTE | 2016-06-18 12:16 | CONS ---
Date/Time of Note Date/Time of Note DATE: 06/18/16 TIME: 12:13 Assessment/Plan Assessment/Plan Additional Assessment/Plan ABG was reviewed and a short while ago which is likely a venous blood gas. Assessment recommendations; 1. Patient admitted with recurrent right pleural effusion status post thoracentesis. Based on examination there is no evidence of any recommendation of fluid. Next 2. Hypertension 3. Diabetes next 4. History of coronary artery bypass surgery Check a pulse oximetry on room air with ambulation. If the saturation level is more than 90%, patient can be discharged home. If the patient has any recommendation of fluid, he would need to have a VATS procedure and pleurodesis performed. Consultation Date/Type/Reason Admit Date/Time Jun 13, 2016 at 14:48 Type of Consultation: Pulm 24 HR Interval Summary Free Text/Dictation Patient condition is stable. Denies any chest pain. Any wheezing. Cough, sputum production. Complains of occasional shortness of breath. Next General examination; middle-aged man, currently in no distress. Exam/Review of Systems Vital Signs Vitals Vital Signs Date Time Temp Pulse Resp B/P Pulse Ox O2 Delivery O2 Flow Rate FiO2 06/18/16 12:09 69 06/18/16 11:19 98.3 19 182/72 96 06/18/16 08:00 Nasal Cannula 06/16/16 03:35 2.0 Intake and Output 06/17/16 06/17/16 06/18/16 15:00 23:00 07:00 Intake Total 200 ml 700 ml 120 ml Output Total 1200 ml Balance -1000 ml 700 ml 120 ml Exam HEENT examination; supple neck, no JVD. No lymphadenopathy. Pharynx is clear. Pupils are midsize and reactive to light. Chest examination; clear to auscultation bilaterally. There is a well-healed sternal scar. S1-S2 audible, no murmurs, regular rhythm. Abdomen examination; soft, non-tender no organomegaly, bowel sounds audible. Extremity examination; no peripheral edema. Pulses 1+ bilaterally. [employer] examination; no focal deficit. Results Result Diagram: 06/18/16 0535 06/18/16 0535 Results 24 hrs Laboratory Tests Test 06/17/16 17:17 06/17/16 20:15 06/18/16 02:18 06/18/16 05:35 Bedside Glucose 156 176 122 Anion Gap 16 Basophils # 0.0 Basophils % 0.7 Blood Morphology Comment Blood Urea Nitrogen 43 #H Calcium Level 9.1 Carbon Dioxide Level 29 Chloride Level 98 Creatinine 6.63 H Eosinophils # 0.2 Eosinophils % 3.7 Glucose Level 81 # Hematocrit 28.9 L Hemoglobin 9.9 L Lymphocytes # 1.0 Lymphocytes % 16.1 Mean Corpuscular Hemoglobin 34.2 H Mean Corpuscular Hemoglobin Concent 34.1 Mean Corpuscular Volume 100.4 Mean Platelet Volume 7.8 Monocytes # 0.7 Monocytes % 11.9 H Neutrophils # 4.2 Neutrophils % 67.6 Nucleated Red Blood Cells # 0.0 Nucleated Red Blood Cells % 0.0 Platelet Count 218 Potassium Level 4.1 Red Blood Count 2.88 L Red Cell Distribution Width 15.7 H Sodium Level 139 White Blood Count 6.3 Test 06/18/16 07:54 06/18/16 08:00 06/18/16 11:14 Bedside Glucose 57 L 107 Arterial Blood HCO3 29.1 H Arterial Blood Base Excess 3.8 H Arterial Blood Oxygen Saturation 62.0 L Yoshi Test ACCEPTAB Arterial Blood Gas Puncture Site Left Radial Arterial Blood Carboxyhemoglobin 1.0 Arterial Blood Date Drawn 06/18/2016 8:55:00 AM Arterial Blood Methemoglobin 0.5 Arterial Blood pCO2 (Temp correct) 47.2 H Arterial Blood pH (Temp corrected) 7.408 Arterial Blood pO2 (Temp corrected) 32.2 *L Blood Gas A-a O2 Differential 61.0 H Blood Gas Critical Value Read Back B OLIVIA COLE Blood Gas Modality ROOM AIR Blood Gas Notified Time 06/18/2016 9:12:00 AM Blood Gas Notified Whom JLD Blood Gas Specimen Source Blood arterial Blood Gas Temperature 37.0 FiO2 21.0 Oxyhemoglobin Percent 61.1 L Total Hemoglobin 11.8 L Medications Medications Current Medications IV Flush (NS 10 ml) 10 ml PRN PRN IV FLUSH LINE; Start 06/13/16 at 19:00 Aspirin (Halfprin) 81 mg DAILY PO Last administered on 06/18/16 09:05; Admin Dose 81 MG; Start 06/14/16 at 09:00 Atorvastatin Calcium (Lipitor) 10 mg QHS PO Last administered on 06/17/16 20: 12; Admin Dose 10 MG; Start 06/14/16 at 21:00 Cholecalciferol (Vitamin D) 400 units DAILY PO Last administered on 06/18/16 09:06; Admin Dose 400 UNITS; Start 06/14/16 at 09:00 Clopidogrel Bisulfate (plaVIX) 75 mg DAILY PO Last administered on 06/18/16 09 :04; Admin Dose 75 MG; Start 06/14/16 at 09:00 Ferrous Sulfate (Ferrous Sulfate (Ec)) 325 mg BID PO Last administered on 09:05; Admin Dose 325 MG; Start 06/14/16 at 09:00 Metoprolol Tartrate (Lopressor) 25 mg BID PO Last administered on 06/18/16 09: 05; Admin Dose 25 MG; Start 06/14/16 at 09:00 Hydralazine HCl (Apresoline) 10 mg Q4H PRN IV for SBP more than 170 Last administered on 06/18/16 11:27; Admin Dose 10 MG; Start 06/14/16 at 00:00 Acetaminophen (Tylenol Tab) 500 mg Q4H PRN PO PAIN AND OR ELEVATED TEMP Last administered on 06/15/16 21:28; Admin Dose 500 MG; Start 06/14/16 at 00:00 Heparin Sodium (Porcine) (Heparin (5000 Units/0.5 ml)) 5,000 unit BID SC Last administered on 06/18/16 09:07; Admin Dose 5,000 UNIT; Start 06/14/16 at 09:00 Miscellaneous Information 1 ea NOTE XX Last administered on 06/18/16 07:57; Admin Dose 1 EA; Start 06/14/16 at 00:30 Glucose (Glutose) 15 gm Q15M PRN PO DECREASED GLUCOSE; Start 06/14/16 at 00:30 Glucose (Glutose) 22.5 gm Q15M PRN PO DECREASED GLUCOSE; Start 06/14/16 at 00: 30 Dextrose (D50w Syringe) 25 ml Q15M PRN IV DECREASED GLUCOSE; Start 06/14/16 at 00:30 Dextrose (D50w Syringe) 50 ml Q15M PRN IV DECREASED GLUCOSE; Start 06/14/16 at 00:30 Glucagon (Glucagen) 1 mg Q15M PRN IM DECREASED GLUCOSE; Start 06/14/16 at 00:30 Glucose (Glutose) 15 gm Q15M PRN BUCCAL DECREASED GLUCOSE; Start 06/14/16 at 00 :30 Diagnostic Test (Pha) (Accucheck) 1 ea 02 XX ; Start 06/14/16 at 02:00 Famotidine (Pepcid) 20 mg DAILY PO Last administered on 06/18/16 09:05; Admin Dose 20 MG; Start 06/14/16 at 09:00 Amlodipine Besylate (Norvasc) 5 mg BID PO Last administered on 06/18/16 09:05 ; Admin Dose 5 MG; Start 06/14/16 at 13:30 Clonidine (Catapres) 0.2 mg Q8 PRN PO Systolic >160 Last administered on 16:52; Admin Dose 0.2 MG; Start 06/14/16 at 13:00 Promethazine HCl/ Codeine (Phenergan/ Codeine) 5 ml Q4H PRN PO COUGH Last administered on 06/15/16 00:09; Admin Dose 5 ML; Start 06/15/16 at 00:00 Insulin Glargine (Lantus) 14 unit QHS SC Last administered on 06/17/16 20:20; Admin Dose 14 UNIT; Start 06/15/16 at 21:00 Pantoprazole (Protonix Tab) 40 mg DAILY@06 PO Last administered on 06/18/16 05 :39; Admin Dose 40 MG; Start 06/16/16 at 06:00 Diphenhydramine HCl (Benadryl) 25 mg HS PRN PO INSOMNIA Last administered on 22:43; Admin Dose 25 MG; Start 06/15/16 at 21:30 Hydralazine HCl (Apresoline) 75 mg Q8 PO Last administered on 06/18/16 05:40; Admin Dose 75 MG; Start 06/16/16 at 14:00 BOONE POLO Jun 18, 2016 12:16
[2016-06-18] MEDS: ACETAMINOPHEN 500 MG TAB PO PRN (12:19)
--- NOTE | 2016-06-18 12:40 | PN ---
Date/Time of Note Date/Time of Note DATE: 06/18/16 TIME: 12:39 Assessment/Plan VTE Prophylaxis VTE Prophylaxis Intervention: SCD's Lines/Catheters IV C[facility] Type [facility]from [facility]): PICC Line Urinary Cath still in place: No Assessment/Plan Chief Complaint/Hosp Course Assessment and plan - Right pleural effusion, status post thoracentesis. Follow-up on culture. Dr. Dale is following in pulmonology consultation. - Possible healthcare acquired pneumonia - End-stage renal disease, continue hemodialysis. - Diabetes mellitus type 2, continue Lantus and NovoLog - Hypertension. Dr. De Santiago is following and cardiology consultation. - Coronary artery disease, status post coronary artery bypass graft. Continue aspirin and Plavix. - Permanent pacemaker. No acute issues. - Dyslipidemia. Continue Lipitor. Continue heparin for deep venous thrombosis prophylaxis and Protonix for peptic ulcer disease prophylaxis. Further recommendations based on clinical course. Plan of care discussed with Dr. Price. Problems: Subjective 24 Hr Interval Summary Free Text/Dictation Patient continues to be on low flow oxygen, complaints of shortness of breath on exertion, will obtain oxygen saturation value after walking in the hallway on room air. Exam/Review of Systems Vital Signs Vitals Vital Signs Date Time Temp Pulse Resp B/P Pulse Ox O2 Delivery O2 Flow Rate FiO2 06/18/16 12:09 69 06/18/16 11:19 98.3 19 182/72 96 06/18/16 08:00 Nasal Cannula 06/16/16 03:35 2.0 Intake and Output 06/17/16 06/17/16 06/18/16 15:00 23:00 07:00 Intake Total 200 ml 700 ml 120 ml Output Total 1200 ml Balance -1000 ml 700 ml 120 ml Exam Constitutional: alert Psych: no complaints Head: atraumatic, normocephalic Eyes: nl conjunctiva ENMT: nl external ears & nose Neck: non-tender, supple Respiratory: clear to auscultation Cardiovascular: nl pulses Gastrointestinal: non-tender, soft Musculoskeletal: nl extremities to inspection Extremities: normal pulses Neurological: EPIC SPECIALIST II-XII intact Skin: nl turgor Results Result Diagram: 06/18/16 0535 06/18/16 0535 Results 24 hrs Laboratory Tests Test 06/17/16 17:17 06/17/16 20:15 06/18/16 02:18 06/18/16 05:35 Bedside Glucose 156 176 122 Anion Gap 16 Basophils # 0.0 Basophils % 0.7 Blood Morphology Comment Blood Urea Nitrogen 43 #H Calcium Level 9.1 Carbon Dioxide Level 29 Chloride Level 98 Creatinine 6.63 H Eosinophils # 0.2 Eosinophils % 3.7 Glucose Level 81 # Hematocrit 28.9 L Hemoglobin 9.9 L Lymphocytes # 1.0 Lymphocytes % 16.1 Mean Corpuscular Hemoglobin 34.2 H Mean Corpuscular Hemoglobin Concent 34.1 Mean Corpuscular Volume 100.4 Mean Platelet Volume 7.8 Monocytes # 0.7 Monocytes % 11.9 H Neutrophils # 4.2 Neutrophils % 67.6 Nucleated Red Blood Cells # 0.0 Nucleated Red Blood Cells % 0.0 Platelet Count 218 Potassium Level 4.1 Red Blood Count 2.88 L Red Cell Distribution Width 15.7 H Sodium Level 139 White Blood Count 6.3 Test 06/18/16 07:54 06/18/16 08:00 06/18/16 11:14 Bedside Glucose 57 L 107 Arterial Blood HCO3 29.1 H Arterial Blood Base Excess 3.8 H Arterial Blood Oxygen Saturation 62.0 L Yoshi Test ACCEPTAB Arterial Blood Gas Puncture Site Left Radial Arterial Blood Carboxyhemoglobin 1.0 Arterial Blood Date Drawn 06/18/2016 8:55:00 AM Arterial Blood Methemoglobin 0.5 Arterial Blood pCO2 (Temp correct) 47.2 H Arterial Blood pH (Temp corrected) 7.408 Arterial Blood pO2 (Temp corrected) 32.2 *L Blood Gas A-a O2 Differential 61.0 H Blood Gas Critical Value Read Back Theresa BAKER RN Blood Gas Modality ROOM AIR Blood Gas Notified Time 06/18/2016 9:12:00 AM Blood Gas Notified Whom JLD Blood Gas Specimen Source Blood arterial Blood Gas Temperature 37.0 FiO2 21.0 Oxyhemoglobin Percent 61.1 L Total Hemoglobin 11.8 L Medications Medications Current Medications IV Flush (NS 10 ml) 10 ml PRN PRN IV FLUSH LINE; Start 06/13/16 at 19:00 Aspirin (Halfprin) 81 mg DAILY PO Last administered on 06/18/16 09:05; Admin Dose 81 MG; Start 06/14/16 at 09:00 Atorvastatin Calcium (Lipitor) 10 mg QHS PO Last administered on 06/17/16 20: 12; Admin Dose 10 MG; Start 06/14/16 at 21:00 Cholecalciferol (Vitamin D) 400 units DAILY PO Last administered on 06/18/16 09:06; Admin Dose 400 UNITS; Start 06/14/16 at 09:00 Clopidogrel Bisulfate (plaVIX) 75 mg DAILY PO Last administered on 06/18/16 09 :04; Admin Dose 75 MG; Start 06/14/16 at 09:00 Ferrous Sulfate (Ferrous Sulfate (Ec)) 325 mg BID PO Last administered on 09:05; Admin Dose 325 MG; Start 06/14/16 at 09:00 Metoprolol Tartrate (Lopressor) 25 mg BID PO Last administered on 06/18/16 09: 05; Admin Dose 25 MG; Start 06/14/16 at 09:00 Hydralazine HCl (Apresoline) 10 mg Q4H PRN IV for SBP more than 170 Last administered on 06/18/16 11:27; Admin Dose 10 MG; Start 06/14/16 at 00:00 Acetaminophen (Tylenol Tab) 500 mg Q4H PRN PO PAIN AND OR ELEVATED TEMP Last administered on 06/18/16 12:19; Admin Dose 500 MG; Start 06/14/16 at 00:00 Heparin Sodium (Porcine) (Heparin (5000 Units/0.5 ml)) 5,000 unit BID SC Last administered on 06/18/16 09:07; Admin Dose 5,000 UNIT; Start 06/14/16 at 09:00 Miscellaneous Information 1 ea NOTE XX Last administered on 06/18/16 07:57; Admin Dose 1 EA; Start 06/14/16 at 00:30 Glucose (Glutose) 15 gm Q15M PRN PO DECREASED GLUCOSE; Start 06/14/16 at 00:30 Glucose (Glutose) 22.5 gm Q15M PRN PO DECREASED GLUCOSE; Start 06/14/16 at 00: 30 Dextrose (D50w Syringe) 25 ml Q15M PRN IV DECREASED GLUCOSE; Start 06/14/16 at 00:30 Dextrose (D50w Syringe) 50 ml Q15M PRN IV DECREASED GLUCOSE; Start 06/14/16 at 00:30 Glucagon (Glucagen) 1 mg Q15M PRN IM DECREASED GLUCOSE; Start 06/14/16 at 00:30 Glucose (Glutose) 15 gm Q15M PRN BUCCAL DECREASED GLUCOSE; Start 06/14/16 at 00 :30 Diagnostic Test (Pha) (Accucheck) 1 ea 02 XX ; Start 06/14/16 at 02:00 Famotidine (Pepcid) 20 mg DAILY PO Last administered on 06/18/16 09:05; Admin Dose 20 MG; Start 06/14/16 at 09:00 Amlodipine Besylate (Norvasc) 5 mg BID PO Last administered on 06/18/16 09:05 ; Admin Dose 5 MG; Start 06/14/16 at 13:30 Clonidine (Catapres) 0.2 mg Q8 PRN PO Systolic >160 Last administered on 16:52; Admin Dose 0.2 MG; Start 06/14/16 at 13:00 Promethazine HCl/ Codeine (Phenergan/ Codeine) 5 ml Q4H PRN PO COUGH Last administered on 06/15/16 00:09; Admin Dose 5 ML; Start 06/15/16 at 00:00 Insulin Glargine (Lantus) 14 unit QHS SC Last administered on 06/17/16 20:20; Admin Dose 14 UNIT; Start 06/15/16 at 21:00 Pantoprazole (Protonix Tab) 40 mg DAILY@06 PO Last administered on 06/18/16 05 :39; Admin Dose 40 MG; Start 06/16/16 at 06:00 Diphenhydramine HCl (Benadryl) 25 mg HS PRN PO INSOMNIA Last administered on 22:43; Admin Dose 25 MG; Start 06/15/16 at 21:30 Hydralazine HCl (Apresoline) 75 mg Q8 PO Last administered on 06/18/16 05:40; Admin Dose 75 MG; Start 06/16/16 at 14:00 CECILIA DAMICO Jun 18, 2016 12:40
--- NOTE | 2016-06-18 15:39 | CONS ---
Date/Time of Note Date/Time of Note DATE: 06/18/16 TIME: 15:27 Assessment/Plan Assessment/Plan Chief Complaint/Hosp Course IMPRESSION: 1. Abnormal electrocardiogram, assess for acute coronary syndrome.-negative troponin x 3 2. History of recent negative stress, May 2015. 3. History of percutaneous transluminal coronary angioplasty and stent placement in 2014 to the left main left anterior descending. No current chest pain. 4. Hypertension, mildly elevated. 5. History of dyslipidemia. 6. Pleural effusion, status post thoracentesis. 7. Possible pneumonia. 8. Diabetes mellitus. 9. End-stage renal disease, on hemodialysis. RECOMMENDATIONS: -Tele -serial ecg's -Hydralazine/metoprolol/norvasc -Continue asa/plavix/statin -Consider abx's and f/u cx data -Follow volume status with HD for volume removal Problems: Consultation Date/Type/Reason Admit Date/Time Jun 13, 2016 at 14:48 Initial Consult Date 06/14/2016 Type of Consultation: Cardiology Reason for Consultation sob Referring Provider: EVA COX MD Exam/Review of Systems Vital Signs Vitals Vital Signs Date Time Temp Pulse Resp B/P Pulse Ox O2 Delivery O2 Flow Rate FiO2 06/18/16 14:04 161/71 06/18/16 12:09 69 06/18/16 11:19 98.3 19 96 06/18/16 08:00 Nasal Cannula 06/16/16 03:35 2.0 Intake and Output 06/17/16 06/17/16 06/18/16 15:00 23:00 07:00 Intake Total 200 ml 700 ml 120 ml Output Total 1200 ml Balance -1000 ml 700 ml 120 ml Exam Review of Systems: CONSTITUTIONAL: No fevers, chills. PULMONARY: No sob CARDIOVASCULAR: No chest pain/palpitations GASTROINTESTINAL: No nausea/vomiting. GENITOURINARY: No hematuria/dysuria. MUSCULOSKELETAL: No myagias/arthalgias. PSYCHIATRIC: The patient denies depression. NEUROLOGIC: No weakness Constitutional: alert, oriented Psych: no complaints Head: normocephalic ENMT: mucosa pink and moist Neck: jvd (9), supple Respiratory: diminished breath sounds Cardiovascular: regular rate and rhythm Gastrointestinal: non-tender, soft Musculoskeletal: muscle tone Extremities: edema (No focal deficits) Neurological: other (No focal deficits) Results Result Diagram: 2/15/17 0535 06/18/16 0535 Results 24 hrs Laboratory Tests Test 06/17/16 17:17 06/17/16 20:15 06/18/16 02:18 06/18/16 05:35 Bedside Glucose 156 176 122 Anion Gap 16 Basophils # 0.0 Basophils % 0.7 Blood Morphology Comment Blood Urea Nitrogen 43 #H Calcium Level 9.1 Carbon Dioxide Level 29 Chloride Level 98 Creatinine 6.63 H Eosinophils # 0.2 Eosinophils % 3.7 Glucose Level 81 # Hematocrit 28.9 L Hemoglobin 9.9 L Lymphocytes # 1.0 Lymphocytes % 16.1 Mean Corpuscular Hemoglobin 34.2 H Mean Corpuscular Hemoglobin Concent 34.1 Mean Corpuscular Volume 100.4 Mean Platelet Volume 7.8 Monocytes # 0.7 Monocytes % 11.9 H Neutrophils # 4.2 Neutrophils % 67.6 Nucleated Red Blood Cells # 0.0 Nucleated Red Blood Cells % 0.0 Platelet Count 218 Potassium Level 4.1 Red Blood Count 2.88 L Red Cell Distribution Width 15.7 H Sodium Level 139 White Blood Count 6.3 Test 06/18/16 07:54 06/18/16 08:00 06/18/16 11:14 Bedside Glucose 57 L 107 Arterial Blood HCO3 29.1 H Arterial Blood Base Excess 3.8 H Arterial Blood Oxygen Saturation 62.0 L Yoshi Test ACCEPTAB Arterial Blood Gas Puncture Site Left Radial Arterial Blood Carboxyhemoglobin 1.0 Arterial Blood Date Drawn 06/18/2016 8:55:00 AM Arterial Blood Methemoglobin 0.5 Arterial Blood pCO2 (Temp correct) 47.2 H Arterial Blood pH (Temp corrected) 7.408 Arterial Blood pO2 (Temp corrected) 32.2 *L Blood Gas A-a O2 Differential 61.0 H Blood Gas Critical Value Read Back Theresa BAKER RN Blood Gas Modality ROOM AIR Blood Gas Notified Time 06/18/2016 9:12:00 AM Blood Gas Notified Whom LINDA Blood Gas Specimen Source Blood arterial Blood Gas Temperature 37.0 FiO2 21.0 Oxyhemoglobin Percent 61.1 L Total Hemoglobin 11.8 L Medications Medications Current Medications IV Flush (NS 10 ml) 10 ml PRN PRN IV FLUSH LINE; Start 06/13/16 at 19:00 Aspirin (Halfprin) 81 mg DAILY PO Last administered on 06/18/16t 09:05; Admin Dose 81 MG; Start 06/14/16 at 09:00 Atorvastatin Calcium (Lipitor) 10 mg QHS PO Last administered on 06/17/16 20: 12; Admin Dose 10 MG; Start 06/14/16 at 21:00 Cholecalciferol (Vitamin D) 400 units DAILY PO Last administered on 06/18/16 09:06; Admin Dose 400 UNITS; Start 06/14/16 at 09:00 Clopidogrel Bisulfate (plaVIX) 75 mg DAILY PO Last administered on 06/18/16 09 :04; Admin Dose 75 MG; Start 06/14/16 at 09:00 Ferrous Sulfate (Ferrous Sulfate (Ec)) 325 mg BID PO Last administered on 09:05; Admin Dose 325 MG; Start 06/14/16 at 09:00 Metoprolol Tartrate (Lopressor) 25 mg BID PO Last administered on 06/18/16 09: 05; Admin Dose 25 MG; Start 06/14/16 at 09:00 Hydralazine HCl (Apresoline) 10 mg Q4H PRN IV for SBP more than 170 Last administered on 06/18/16 11:27; Admin Dose 10 MG; Start 06/14/16 at 00:00 Acetaminophen (Tylenol Tab) 500 mg Q4H PRN PO PAIN AND OR ELEVATED TEMP Last administered on 06/18/16 12:19; Admin Dose 500 MG; Start 06/14/16 at 00:00 Heparin Sodium (Porcine) (Heparin (5000 Units/0.5 ml)) 5,000 unit BID SC Last administered on 06/18/16 09:07; Admin Dose 5,000 UNIT; Start 06/14/16 at 09:00 Miscellaneous Information 1 ea NOTE XX Last administered on 06/18/16 07:57; Admin Dose 1 EA; Start 06/14/16 at 00:30 Glucose (Glutose) 15 gm Q15M PRN PO DECREASED GLUCOSE; Start 06/14/16 at 00:30 Glucose (Glutose) 22.5 gm Q15M PRN PO DECREASED GLUCOSE; Start 06/14/16 at 00: 30 Dextrose (D50w Syringe) 25 ml Q15M PRN IV DECREASED GLUCOSE; Start 06/14/16 at 00:30 Dextrose (D50w Syringe) 50 ml Q15M PRN IV DECREASED GLUCOSE; Start 06/14/16 at 00:30 Glucagon (Glucagen) 1 mg Q15M PRN IM DECREASED GLUCOSE; Start 06/14/16 at 00:30 Glucose (Glutose) 15 gm Q15M PRN BUCCAL DECREASED GLUCOSE; Start 06/14/16 at 00 :30 Diagnostic Test (Pha) (Accucheck) 1 ea 02 XX ; Start 06/14/16 at 02:00 Famotidine (Pepcid) 20 mg DAILY PO Last administered on 06/18/16 09:05; Admin Dose 20 MG; Start 06/14/16 at 09:00 Amlodipine Besylate (Norvasc) 5 mg BID PO Last administered on 06/18/16 09:05 ; Admin Dose 5 MG; Start 06/14/16 at 13:30 Clonidine (Catapres) 0.2 mg Q8 PRN PO Systolic >160 Last administered on 16:52; Admin Dose 0.2 MG; Start 06/14/16 at 13:00 Promethazine HCl/ Codeine (Phenergan/ Codeine) 5 ml Q4H PRN PO COUGH Last administered on 06/15/16 00:09; Admin Dose 5 ML; Start 06/15/16 at 00:00 Insulin Glargine (Lantus) 14 unit QHS SC Last administered on 06/17/16 20:20; Admin Dose 14 UNIT; Start 06/15/16 at 21:00 Pantoprazole (Protonix Tab) 40 mg DAILY@06 PO Last administered on 06/18/16 05 :39; Admin Dose 40 MG; Start 06/16/16 at 06:00 Diphenhydramine HCl (Benadryl) 25 mg HS PRN PO INSOMNIA Last administered on 22:43; Admin Dose 25 MG; Start 06/15/16 at 21:30 Hydralazine HCl (Apresoline) 75 mg Q8 PO Last administered on 06/18/16 14:05; Admin Dose 75 MG; Start 06/16/16 at 14:00 SHERITA SCOTTb 15, 2017 15:38
--- NOTE | 2016-06-18 18:48 | PN ---
Date/Time of Note Date/Time of Note DATE: 06/18/16 TIME: 18:44 Assessment/Plan VTE Prophylaxis VTE Prophylaxis Intervention: other Assessment/Plan Problems: (1) Anemia Status: Chronic Qualifiers: Anemia type: unspecified type Qualified Code: D64.9 - Anemia, unspecified type (2) End stage kidney disease Status: Chronic (3) Shortness of breath Status: Acute (4) Pleural effusion Status: Chronic Assessment/Plan [id number] sob better hd per plan Exam/Review of Systems Vital Signs Vitals Vital Signs Date Time Temp Pulse Resp B/P Pulse Ox O2 Delivery O2 Flow Rate FiO2 06/18/16 18:28 2.0 06/18/16 16:04 70 06/18/16 15:46 98.3 18 170/72 90 06/18/16 08:00 Nasal Cannula Intake and Output 06/17/16 06/17/16 06/18/16 15:00 23:00 07:00 Intake Total 200 ml 700 ml 120 ml Output Total 1200 ml Balance -1000 ml 700 ml 120 ml Exam Constitutional: alert, oriented Neck: supple Respiratory: normal air movement Cardiovascular: regular rate and rhythm Gastrointestinal: soft Results Result Diagram: 06/18/16 0535 06/18/16 0535 Results 24 hrs Laboratory Tests Test 06/17/16 20:15 06/18/16 02:18 06/18/16 05:35 06/18/16 07:54 Bedside Glucose 176 122 57 L Anion Gap 16 Basophils # 0.0 Basophils % 0.7 Blood Morphology Comment Blood Urea Nitrogen 43 #H Calcium Level 9.1 Carbon Dioxide Level 29 Chloride Level 98 Creatinine 6.63 H Eosinophils # 0.2 Eosinophils % 3.7 Glucose Level 81 # Hematocrit 28.9 L Hemoglobin 9.9 L Lymphocytes # 1.0 Lymphocytes % 16.1 Mean Corpuscular Hemoglobin 34.2 H Mean Corpuscular Hemoglobin Concent 34.1 Mean Corpuscular Volume 100.4 Mean Platelet Volume 7.8 Monocytes # 0.7 Monocytes % 11.9 H Neutrophils # 4.2 Neutrophils % 67.6 Nucleated Red Blood Cells # 0.0 Nucleated Red Blood Cells % 0.0 Platelet Count 218 Potassium Level 4.1 Red Blood Count 2.88 L Red Cell Distribution Width 15.7 H Sodium Level 139 White Blood Count 6.3 Test 06/18/16 08:00 06/18/16 11:14 06/18/16 17:24 Arterial Blood HCO3 29.1 H Arterial Blood Base Excess 3.8 H Arterial Blood Oxygen Saturation 62.0 L Yoshi Test ACCEPTAB Arterial Blood Gas Puncture Site Left Radial Arterial Blood Carboxyhemoglobin 1.0 Arterial Blood Date Drawn 06/18/2016 8:55:00 AM Arterial Blood Methemoglobin 0.5 Arterial Blood pCO2 (Temp correct) 47.2 H Arterial Blood pH (Temp corrected) 7.408 Arterial Blood pO2 (Temp corrected) 32.2 *L Blood Gas A-a O2 Differential 61.0 H Blood Gas Critical Value Read Back B OLIVIA COLE Blood Gas Modality ROOM AIR Blood Gas Notified Time 06/18/2016 9:12:00 AM Blood Gas Notified Whom JULIANNED Blood Gas Specimen Source Blood arterial Blood Gas Temperature 37.0 FiO2 21.0 Oxyhemoglobin Percent 61.1 L Total Hemoglobin 11.8 L Bedside Glucose 107 132 Medications Medications Current Medications IV Flush (NS 10 ml) 10 ml PRN PRN IV FLUSH LINE; Start 06/13/16 at 19:00 Aspirin (Halfprin) 81 mg DAILY PO Last administered on 06/18/16 09:05; Admin Dose 81 MG; Start 06/14/16 at 09:00 Atorvastatin Calcium (Lipitor) 10 mg QHS PO Last administered on 06/17/16 20: 12; Admin Dose 10 MG; Start 06/14/16 at 21:00 Cholecalciferol (Vitamin D) 400 units DAILY PO Last administered on 06/18/16 09:06; Admin Dose 400 UNITS; Start 06/14/16 at 09:00 Clopidogrel Bisulfate (plaVIX) 75 mg DAILY PO Last administered on 06/18/16 09 :04; Admin Dose 75 MG; Start 06/14/16 at 09:00 Ferrous Sulfate (Ferrous Sulfate (Ec)) 325 mg BID PO Last administered on 09:05; Admin Dose 325 MG; Start 06/14/16 at 09:00 Metoprolol Tartrate (Lopressor) 25 mg BID PO Last administered on 06/18/16 09: 05; Admin Dose 25 MG; Start 06/14/16 at 09:00 Hydralazine HCl (Apresoline) 10 mg Q4H PRN IV for SBP more than 170 Last administered on 06/18/16 11:27; Admin Dose 10 MG; Start 06/14/16 at 00:00 Acetaminophen (Tylenol Tab) 500 mg Q4H PRN PO PAIN AND OR ELEVATED TEMP Last administered on 06/18/16 12:19; Admin Dose 500 MG; Start 06/14/16 at 00:00 Heparin Sodium (Porcine) (Heparin (5000 Units/0.5 ml)) 5,000 unit BID SC Last administered on 06/18/16 09:07; Admin Dose 5,000 UNIT; Start 06/14/16 at 09:00 Miscellaneous Information 1 ea NOTE XX Last administered on 06/18/16 07:57; Admin Dose 1 EA; Start 06/14/16 at 00:30 Glucose (Glutose) 15 gm Q15M PRN PO DECREASED GLUCOSE; Start 06/14/16 at 00:30 Glucose (Glutose) 22.5 gm Q15M PRN PO DECREASED GLUCOSE; Start 06/14/16 at 00: 30 Dextrose (D50w Syringe) 25 ml Q15M PRN IV DECREASED GLUCOSE; Start 06/14/16 at 00:30 Dextrose (D50w Syringe) 50 ml Q15M PRN IV DECREASED GLUCOSE; Start 06/14/16 at 00:30 Glucagon (Glucagen) 1 mg Q15M PRN IM DECREASED GLUCOSE; Start 06/14/16 at 00:30 Glucose (Glutose) 15 gm Q15M PRN BUCCAL DECREASED GLUCOSE; Start 06/14/16 at 00 :30 Diagnostic Test (Pha) (Accucheck) 1 ea 02 XX ; Start 06/14/16 at 02:00 Famotidine (Pepcid) 20 mg DAILY PO Last administered on 06/18/16 09:05; Admin Dose 20 MG; Start 06/14/16 at 09:00 Amlodipine Besylate (Norvasc) 5 mg BID PO Last administered on 06/18/16 09:05 ; Admin Dose 5 MG; Start 06/14/16 at 13:30 Clonidine (Catapres) 0.2 mg Q8 PRN PO Systolic >160 Last administered on 18:16; Admin Dose 0.2 MG; Start 06/14/16 at 13:00 Promethazine HCl/ Codeine (Phenergan/ Codeine) 5 ml Q4H PRN PO COUGH Last administered on 06/15/16 00:09; Admin Dose 5 ML; Start 06/15/16 at 00:00 Insulin Glargine (Lantus) 14 unit QHS SC Last administered on 06/17/16 20:20; Admin Dose 14 UNIT; Start 06/15/16 at 21:00 Pantoprazole (Protonix Tab) 40 mg DAILY@06 PO Last administered on 06/18/16 05 :39; Admin Dose 40 MG; Start 06/16/16 at 06:00 Diphenhydramine HCl (Benadryl) 25 mg HS PRN PO INSOMNIA Last administered on 22:43; Admin Dose 25 MG; Start 06/15/16 at 21:30 Hydralazine HCl (Apresoline) 75 mg Q8 PO Last administered on 06/18/16 14:05; Admin Dose 75 MG; Start 06/16/16 at 14:00 ENEDINA YOUNGER MD Jun 18, 2016 18:48
--- NOTE | 2016-06-18 19:23 | PN ---
Date/Time of Note Date/Time of Note DATE: 06/18/16 TIME: 19:23 Assessment/Plan Assessment/Plan Chief Complaint/Hosp Course IMPRESSION: Bilateral pleural effusions status post thoracentesis with much improvement. At this time, would continue monitoring the chest x-ray. If effusions recur and they are loculated, patient would benefit from a VATS decortication. Will discuss with the referring physicians. Problems: Subjective 24 Hr Interval Summary Constitutional: improved Pain Control: mild Exam/Review of Systems Vital Signs Vitals Vital Signs Date Time Temp Pulse Resp B/P Pulse Ox O2 Delivery O2 Flow Rate FiO2 06/18/16 18:28 2.0 06/18/16 16:04 70 06/18/16 15:46 98.3 18 170/72 90 06/18/16 08:00 Nasal Cannula Intake and Output 06/17/16 06/17/16 06/18/16 15:00 23:00 07:00 Intake Total 200 ml 700 ml 120 ml Output Total 1200 ml Balance -1000 ml 700 ml 120 ml Exam ENMT: mucosa pink and moist, nl external ears & nose, nl lips & teeth, nl nasal mucosa & septum Neck: non-tender, supple Respiratory: clear to auscultation, normal air movement Cardiovascular: nl pulses, regular rate and rhythm Results Result Diagram: 06/18/16 0535 06/18/16 0535 LILIA FELIZ MD Jun 18, 2016 19:23
[2016-06-18] MEDS: ATORVASTATIN 10 MG TAB PO SCH (21:38)
[2016-06-18] MEDS: PROMETHAZINE/CODEINE 5ML CUP PO PRN (21:54)
[2016-06-18] MEDS: INSULIN GLARGINE [LANtus] 3 ML PEN SC SCH (22:04)
[2016-06-19] VITALS (11 sets, daily range): BP systolic 140–176; BP diastolic 63–77; PULSE 69; RESP 17–20
[2016-06-19] MEDS: ACCU-CHEK XX SCH ×5 (02:00→21:00)
[2016-06-19] MEDS: PROMETHAZINE/CODEINE 5ML CUP PO PRN ×2 (02:15→18:05)
[2016-06-19] MEDS: PANTOPRAZOLE (EC) 40 MG TAB PO SCH (05:46)
[2016-06-19] MEDS: INSULIN ASPART [NOVOLOG] 3 ML PEN SC SCH ×4 (07:55→21:00)
[2016-06-19] MEDS: FERROUS SULFATE (EC) 325 MG TAB PO SCH ×2 (08:29→21:21)
[2016-06-19] MEDS: FAMOTIDINE 20 MG TAB PO SCH (08:29)
[2016-06-19] MEDS: CLOPIDOGREL 75 MG TAB PO SCH (08:29)
[2016-06-19] MEDS: ASPIRIN (EC) 81 MG TAB PO SCH (08:29)
[2016-06-19] MEDS: CALCIUM ACETATE 667 MG CAP PO SCH ×3 (08:29→18:05)
[2016-06-19] MEDS: CHOLECALCIFEROL 400 UNITS TAB PO SCH (08:29)
[2016-06-19] MEDS: SEVELAMER CARBONATE 0.8 GM PKT PO SCH ×3 (08:29→18:05)
[2016-06-19] MEDS: AMLODIPINE 5 MG TAB PO SCH ×2 (08:30→21:21)
[2016-06-19] MEDS: METOPROLOL 25 MG TAB PO SCH ×2 (08:30→21:22)
[2016-06-19] MEDS: HEPARIN 5,000 UNIT/0.5 ML SYG SC SCH ×2 (08:32→21:37)
[2016-06-19] MEDS: LEVALBUTEROL (HFA) 15 GM INHALER INH SCH ×3 (09:25→17:16)
--- NOTE | 2016-06-19 11:35 | PN ---
Date/Time of Note Date/Time of Note DATE: 06/19/16 TIME: 11:32 Assessment/Plan VTE Prophylaxis VTE Prophylaxis Intervention: heparin Lines/Catheters IV Catheter Type (from [facility]): PICC Line Central line still needed: Yes Urinary Cath still in place: No Assessment/Plan Assessment/Plan - Right pleural effusion, status post thoracentesis. Follow-up on culture. - per Dr. Dale in pulmonology consultation. - Plan for VATS - Possible healthcare acquired pneumonia - End-stage renal disease - continue hemodialysis. - Diabetes mellitus type 2, continue Lantus and NovoLog - Hypertension. - per Dr. De Santiago is following and cardiology consultation. - Coronary artery disease, status post coronary artery bypass graft. Continue aspirin and Plavix. - Permanent pacemaker. No acute issues. - Dyslipidemia. Continue Lipitor. Continue heparin for deep venous thrombosis prophylaxis and Protonix for peptic ulcer disease prophylaxis. Further recommendations based on clinical course. Plan of care discussed with Dr. Price. Exam/Review of Systems Vital Signs Vitals Vital Signs Date Time Temp Pulse Resp B/P Pulse Ox O2 Delivery O2 Flow Rate FiO2 06/19/16 08:47 98.0 69 18 149/63 98 06/19/16 08:00 Nasal Cannula 2.0 Intake and Output 06/18/16 06/18/16 06/19/16 15:00 23:00 07:00 Intake Total 850 ml 750 ml Output Total 600 ml Balance 250 ml 750 ml Exam Constitutional: alert, oriented, well developed Psych: no complaints Head: atraumatic Eyes: EOMI, PERRL, nl sclera ENMT: nl external ears & nose Neck: non-tender Respiratory: clear to auscultation, other (sp right thoracentesis ) Cardiovascular: nl pulses Gastrointestinal: non-tender, soft Musculoskeletal: nl extremities to inspection Extremities: normal pulses Neurological: nl mental status, nl speech Skin: nl turgor Lymph: nontender Results Result Diagram: 06/18/16 0535 06/18/16 0535 Results 24 hrs Laboratory Tests Test 06/18/16 17:24 06/18/16 21:36 06/19/16 08:27 06/19/16 09:23 Bedside Glucose 132 135 66 L 125 Medications Medications Current Medications IV Flush (NS 10 ml) 10 ml PRN PRN IV FLUSH LINE; Start 06/13/16 at 19:00 Aspirin (Halfprin) 81 mg DAILY PO Last administered on 06/19/16 08:29; Admin Dose 81 MG; Start 06/14/16 at 09:00 Atorvastatin Calcium (Lipitor) 10 mg QHS PO Last administered on 06/18/16 21: 38; Admin Dose 10 MG; Start 06/14/16 at 21:00 Cholecalciferol (Vitamin D) 400 units DAILY PO Last administered on 06/19/16 08:29; Admin Dose 400 UNITS; Start 06/14/16 at 09:00 Clopidogrel Bisulfate (plaVIX) 75 mg DAILY PO Last administered on 06/19/16 08 :29; Admin Dose 75 MG; Start 06/14/16 at 09:00 Ferrous Sulfate (Ferrous Sulfate (Ec)) 325 mg BID PO Last administered on 08:29; Admin Dose 325 MG; Start 06/14/16 at 09:00 Metoprolol Tartrate (Lopressor) 25 mg BID PO Last administered on 06/19/16 08: 30; Admin Dose 25 MG; Start 06/14/16 at 09:00 Hydralazine HCl (Apresoline) 10 mg Q4H PRN IV for SBP more than 170 Last administered on 06/18/16 11:27; Admin Dose 10 MG; Start 06/14/16 at 00:00 Acetaminophen (Tylenol Tab) 500 mg Q4H PRN PO PAIN AND OR ELEVATED TEMP Last administered on 06/18/16 12:19; Admin Dose 500 MG; Start 06/14/16 at 00:00 Heparin Sodium (Porcine) (Heparin (5000 Units/0.5 ml)) 5,000 unit BID SC Last administered on 06/19/16 08:32; Admin Dose 5,000 UNIT; Start 06/14/16 at 09:00 Miscellaneous Information 1 ea NOTE XX Last administered on 06/18/16 07:57; Admin Dose 1 EA; Start 06/14/16 at 00:30 Glucose (Glutose) 15 gm Q15M PRN PO DECREASED GLUCOSE; Start 06/14/16 at 00:30 Glucose (Glutose) 22.5 gm Q15M PRN PO DECREASED GLUCOSE; Start 06/14/16 at 00: 30 Dextrose (D50w Syringe) 25 ml Q15M PRN IV DECREASED GLUCOSE; Start 06/14/16 at 00:30 Dextrose (D50w Syringe) 50 ml Q15M PRN IV DECREASED GLUCOSE; Start 06/14/16 at 00:30 Glucagon (Glucagen) 1 mg Q15M PRN IM DECREASED GLUCOSE; Start 06/14/16 at 00:30 Glucose (Glutose) 15 gm Q15M PRN BUCCAL DECREASED GLUCOSE; Start 06/14/16 at 00 :30 Diagnostic Test (Pha) (Accucheck) 1 ea 02 XX ; Start 06/14/16 at 02:00 Famotidine (Pepcid) 20 mg DAILY PO Last administered on 06/19/16 08:29; Admin Dose 20 MG; Start 06/14/16 at 09:00 Amlodipine Besylate (Norvasc) 5 mg BID PO Last administered on 06/19/16 08:30 ; Admin Dose 5 MG; Start 06/14/16 at 13:30 Clonidine (Catapres) 0.2 mg Q8 PRN PO Systolic >160 Last administered on 18:16; Admin Dose 0.2 MG; Start 06/14/16 at 13:00 Promethazine HCl/ Codeine (Phenergan/ Codeine) 5 ml Q4H PRN PO COUGH Last administered on 06/19/16 02:15; Admin Dose 5 ML; Start 06/15/16 at 00:00 Insulin Glargine (Lantus) 14 unit QHS SC Last administered on 06/18/16 22:04; Admin Dose 14 UNIT; Start 06/15/16 at 21:00 Pantoprazole (Protonix Tab) 40 mg DAILY@06 PO Last administered on 06/19/16 05 :46; Admin Dose 40 MG; Start 06/16/16 at 06:00 Diphenhydramine HCl (Benadryl) 25 mg HS PRN PO INSOMNIA Last administered on 22:43; Admin Dose 25 MG; Start 06/15/16 at 21:30 Hydralazine HCl (Apresoline) 75 mg Q8 PO Last administered on 06/19/16 05:46; Admin Dose 75 MG; Start 06/16/16 at 14:00 PATRICIA RUEDA Jun 19, 2016 11:35
--- NOTE | 2016-06-19 12:56 | CONS ---
Date/Time of Note Date/Time of Note DATE: 06/19/16 TIME: 12:54 Assessment/Plan Assessment/Plan Chief Complaint/Hosp Course IMPRESSION: 1. Abnormal electrocardiogram, assess for acute coronary syndrome.-negative troponin x 3 2. History of recent negative stress, May 2015. 3. History of percutaneous transluminal coronary angioplasty and stent placement in 2014 to the left main left anterior descending. No current chest pain. 4. Hypertension, mildly elevated. 5. History of dyslipidemia. 6. Pleural effusion, status post thoracentesis. 7. Possible pneumonia. 8. Diabetes mellitus. 9. End-stage renal disease, on hemodialysis. RECOMMENDATIONS: -Tele -serial ecg's -Increase Hydralazine to improve BP -Continue metoprolol/norvasc -Continue asa/plavix/statin -Consider abx's and f/u cx data -Follow volume status with HD for volume removal Problems: Consultation Date/Type/Reason Admit Date/Time Jun 13, 2016 at 14:48 Initial Consult Date 06/14/2016 Type of Consultation: Cardiology Reason for Consultation abnl ecg Referring Provider: EVA COX MD Exam/Review of Systems Vital Signs Vitals Vital Signs Date Time Temp Pulse Resp B/P Pulse Ox O2 Delivery O2 Flow Rate FiO2 06/19/16 12:04 98.0 70 18 176/77 98 06/19/16 08:00 Nasal Cannula 2.0 Intake and Output 06/18/16 06/18/16 06/19/16 15:00 23:00 07:00 Intake Total 850 ml 750 ml Output Total 600 ml Balance 250 ml 750 ml Exam Review of Systems: CONSTITUTIONAL: No fevers, chills. PULMONARY: mild sob-improving CARDIOVASCULAR: No chest pain/palpitations GASTROINTESTINAL: No nausea/vomiting. GENITOURINARY: No hematuria/dysuria. MUSCULOSKELETAL: No myagias/arthalgias. PSYCHIATRIC: The patient denies depression. NEUROLOGIC: No weakness Constitutional: alert, oriented Psych: no complaints Head: normocephalic ENMT: mucosa pink and moist Neck: jvd (9 cm water), supple Respiratory: diminished breath sounds (at bases/B) Cardiovascular: regular rate and rhythm Gastrointestinal: non-tender, soft Musculoskeletal: muscle tone (normal) Extremities: edema (none) Neurological: other (No focal deficits) Results Result Diagram: 06/18/16 0535 06/18/16 0535 Results 24 hrs Laboratory Tests Test 06/18/16 17:24 06/18/16 21:36 06/19/16 08:27 06/19/16 09:23 Bedside Glucose 132 135 66 L 125 Test 06/19/16 11:57 Bedside Glucose 125 Medications Medications Current Medications IV Flush (NS 10 ml) 10 ml PRN PRN IV FLUSH LINE; Start 06/13/16 at 19:00 Aspirin (Halfprin) 81 mg DAILY PO Last administered on 06/19/16 08:29; Admin Dose 81 MG; Start 06/14/16 at 09:00 Atorvastatin Calcium (Lipitor) 10 mg QHS PO Last administered on 06/18/16 21: 38; Admin Dose 10 MG; Start 06/14/16 at 21:00 Cholecalciferol (Vitamin D) 400 units DAILY PO Last administered on 06/19/16 08:29; Admin Dose 400 UNITS; Start 06/14/16 at 09:00 Clopidogrel Bisulfate (plaVIX) 75 mg DAILY PO Last administered on 06/19/16 08 :29; Admin Dose 75 MG; Start 06/14/16 at 09:00 Ferrous Sulfate (Ferrous Sulfate (Ec)) 325 mg BID PO Last administered on 08:29; Admin Dose 325 MG; Start 06/14/16 at 09:00 Metoprolol Tartrate (Lopressor) 25 mg BID PO Last administered on 06/19/16 08: 30; Admin Dose 25 MG; Start 06/14/16 at 09:00 Hydralazine HCl (Apresoline) 10 mg Q4H PRN IV for SBP more than 170 Last administered on 06/18/16 11:27; Admin Dose 10 MG; Start 06/14/16 at 00:00 Acetaminophen (Tylenol Tab) 500 mg Q4H PRN PO PAIN AND OR ELEVATED TEMP Last administered on 06/18/16 12:19; Admin Dose 500 MG; Start 06/14/16 at 00:00 Heparin Sodium (Porcine) (Heparin (5000 Units/0.5 ml)) 5,000 unit BID SC Last administered on 06/19/16 08:32; Admin Dose 5,000 UNIT; Start 06/14/16 at 09:00 Miscellaneous Information 1 ea NOTE XX Last administered on 06/18/16 07:57; Admin Dose 1 EA; Start 06/14/16 at 00:30 Glucose (Glutose) 15 gm Q15M PRN PO DECREASED GLUCOSE; Start 06/14/16 at 00:30 Glucose (Glutose) 22.5 gm Q15M PRN PO DECREASED GLUCOSE; Start 06/14/16 at 00: 30 Dextrose (D50w Syringe) 25 ml Q15M PRN IV DECREASED GLUCOSE; Start 06/14/16 at 00:30 Dextrose (D50w Syringe) 50 ml Q15M PRN IV DECREASED GLUCOSE; Start 06/14/16 at 00:30 Glucagon (Glucagen) 1 mg Q15M PRN IM DECREASED GLUCOSE; Start 06/14/16 at 00:30 Glucose (Glutose) 15 gm Q15M PRN BUCCAL DECREASED GLUCOSE; Start 06/14/16 at 00 :30 Diagnostic Test (Pha) (Accucheck) 1 ea 02 XX ; Start 06/14/16 at 02:00 Famotidine (Pepcid) 20 mg DAILY PO Last administered on 06/19/16 08:29; Admin Dose 20 MG; Start 06/14/16 at 09:00 Amlodipine Besylate (Norvasc) 5 mg BID PO Last administered on 06/19/16 08:30 ; Admin Dose 5 MG; Start 06/14/16 at 13:30 Clonidine (Catapres) 0.2 mg Q8 PRN PO Systolic >160 Last administered on 18:16; Admin Dose 0.2 MG; Start 06/14/16 at 13:00 Promethazine HCl/ Codeine (Phenergan/ Codeine) 5 ml Q4H PRN PO COUGH Last administered on 06/19/16 02:15; Admin Dose 5 ML; Start 06/15/16 at 00:00 Insulin Glargine (Lantus) 14 unit QHS SC Last administered on 06/18/16 22:04; Admin Dose 14 UNIT; Start 06/15/16 at 21:00 Pantoprazole (Protonix Tab) 40 mg DAILY@06 PO Last administered on 06/19/16 05 :46; Admin Dose 40 MG; Start 06/16/16 at 06:00 Diphenhydramine HCl (Benadryl) 25 mg HS PRN PO INSOMNIA Last administered on 22:43; Admin Dose 25 MG; Start 06/15/16 at 21:30 Hydralazine HCl (Apresoline) 75 mg Q8 PO Last administered on 06/19/16 05:46; Admin Dose 75 MG; Start 06/16/16 at 14:00 SHERITA SCOTT Jun 19, 2016 12:56
[2016-06-19] MEDS: hydrALAzine 20 MG INJ IV PRN (17:17)
[2016-06-19] MEDS: ATORVASTATIN 10 MG TAB PO SCH (21:21)
[2016-06-19] MEDS: INSULIN GLARGINE [LANtus] 3 ML PEN SC SCH (21:32)
--- NOTE | 2016-06-19 21:50 | PN ---
Date/Time of Note Date/Time of Note DATE: 06/19/16 TIME: 21:49 Assessment/Plan Lines/Catheters IV Catheter Type (from Nrs): PICC Line Jonas in Place (from Nrs): No Assessment/Plan Chief Complaint/Hosp Course IMPRESSION: Bilateral pleural effusions status post thoracentesis with much improvement. At this time, would continue monitoring the chest x-ray. If effusions recur and they are loculated, patient would benefit from a VATS decortication. Will discuss with the referring physicians. Problems: Subjective 24 Hr Interval Summary Constitutional: improved Pain Control: mild Exam/Review of Systems Vital Signs Vitals Vital Signs Date Time Temp Pulse Resp B/P Pulse Ox O2 Delivery O2 Flow Rate FiO2 06/19/16 21:18 2.0 06/19/16 20:13 98.0 70 20 173/75 95 06/19/16 08:00 Nasal Cannula Intake and Output 06/18/16 06/18/16 06/19/16 15:00 23:00 07:00 Intake Total 850 ml 750 ml Output Total 600 ml Balance 250 ml 750 ml Exam Neck: non-tender, supple Respiratory: clear to auscultation, normal air movement Cardiovascular: nl pulses, regular rate and rhythm Gastrointestinal: nl liver, spleen, non-tender, soft Results Result Diagram: 06/18/16 0535 06/18/16 0535 LILIA FELIZ MD Jun 19, 2016 21:50
--- NOTE | 2016-06-19 22:49 | CONS ---
Date/Time of Note Date/Time of Note DATE: 06/19/16 TIME: 22:47 Assessment/Plan Assessment/Plan Chief Complaint/Hosp Course ESRD HTN PNEUMONISA PLEURAL EFFUSION PLAN PER CARDIO HD NON COMPLIANCE W HD Problems: Consultation Date/Type/Reason Admit Date/Time Jun 13, 2016 at 14:48 Initial Consult Date Type of Consultation: renal Referring Provider: EVA COX MD 24 HR Interval Summary Constitutional: no complaints Exam/Review of Systems Vital Signs Vitals Vital Signs Date Time Temp Pulse Resp B/P Pulse Ox O2 Delivery O2 Flow Rate FiO2 06/19/16 21:18 2.0 06/19/16 20:13 98.0 70 20 173/75 95 06/19/16 08:00 Nasal Cannula Intake and Output 06/18/16 06/18/16 06/19/16 15:00 23:00 07:00 Intake Total 850 ml 750 ml Output Total 600 ml Balance 250 ml 750 ml Exam Respiratory: diminished breath sounds Cardiovascular: regular rate and rhythm Results Result Diagram: 06/18/16 0535 06/18/16 0535 Results 24 hrs Laboratory Tests Test 06/19/16 08:27 06/19/16 09:23 06/19/16 11:57 06/19/16 17:14 Bedside Glucose 66 L 125 125 127 Test 06/19/16 21:20 Bedside Glucose 145 Medications Medications Current Medications IV Flush (NS 10 ml) 10 ml PRN PRN IV FLUSH LINE; Start 06/13/16 at 19:00 Aspirin (Halfprin) 81 mg DAILY PO Last administered on 06/19/16 08:29; Admin Dose 81 MG; Start 06/14/16 at 09:00 Atorvastatin Calcium (Lipitor) 10 mg QHS PO Last administered on 06/19/16 21: 21; Admin Dose 10 MG; Start 06/14/16 at 21:00 Cholecalciferol (Vitamin D) 400 units DAILY PO Last administered on 06/19/16 08:29; Admin Dose 400 UNITS; Start 06/14/16 at 09:00 Clopidogrel Bisulfate (plaVIX) 75 mg DAILY PO Last administered on 06/19/16 08 :29; Admin Dose 75 MG; Start 06/14/16 at 09:00 Ferrous Sulfate (Ferrous Sulfate (Ec)) 325 mg BID PO Last administered on 21:21; Admin Dose 325 MG; Start 06/14/16 at 09:00 Metoprolol Tartrate (Lopressor) 25 mg BID PO Last administered on 06/19/16 21: 22; Admin Dose 25 MG; Start 06/14/16 at 09:00 Hydralazine HCl (Apresoline) 10 mg Q4H PRN IV for SBP more than 170 Last administered on 06/19/16 17:17; Admin Dose 10 MG; Start 06/14/16 at 00:00 Acetaminophen (Tylenol Tab) 500 mg Q4H PRN PO PAIN AND OR ELEVATED TEMP Last administered on 06/18/16 12:19; Admin Dose 500 MG; Start 06/14/16 at 00:00 Heparin Sodium (Porcine) (Heparin (5000 Units/0.5 ml)) 5,000 unit BID SC Last administered on 06/19/16 21:37; Admin Dose 5,000 UNIT; Start 06/14/16 at 09:00 Miscellaneous Information 1 ea NOTE XX Last administered on 06/18/16 07:57; Admin Dose 1 EA; Start 06/14/16 at 00:30 Glucose (Glutose) 15 gm Q15M PRN PO DECREASED GLUCOSE; Start 06/14/16 at 00:30 Glucose (Glutose) 22.5 gm Q15M PRN PO DECREASED GLUCOSE; Start 06/14/16 at 00: 30 Dextrose (D50w Syringe) 25 ml Q15M PRN IV DECREASED GLUCOSE; Start 06/14/16 at 00:30 Dextrose (D50w Syringe) 50 ml Q15M PRN IV DECREASED GLUCOSE; Start 06/14/16 at 00:30 Glucagon (Glucagen) 1 mg Q15M PRN IM DECREASED GLUCOSE; Start 06/14/16 at 00:30 Glucose (Glutose) 15 gm Q15M PRN BUCCAL DECREASED GLUCOSE; Start 06/14/16 at 00 :30 Diagnostic Test (Pha) (Accucheck) 1 ea 02 XX ; Start 06/14/16 at 02:00 Famotidine (Pepcid) 20 mg DAILY PO Last administered on 06/19/16 08:29; Admin Dose 20 MG; Start 06/14/16 at 09:00 Amlodipine Besylate (Norvasc) 5 mg BID PO Last administered on 06/19/16 21:21 ; Admin Dose 5 MG; Start 06/14/16 at 13:30 Clonidine (Catapres) 0.2 mg Q8 PRN PO Systolic >160 Last administered on 18:16; Admin Dose 0.2 MG; Start 06/14/16 at 13:00 Promethazine HCl/ Codeine (Phenergan/ Codeine) 5 ml Q4H PRN PO COUGH Last administered on 06/19/16 18:05; Admin Dose 5 ML; Start 06/15/16 at 00:00 Insulin Glargine (Lantus) 14 unit QHS SC Last administered on 06/19/16 21:32; Admin Dose 14 UNIT; Start 06/15/16 at 21:00 Pantoprazole (Protonix Tab) 40 mg DAILY@06 PO Last administered on 06/19/16 05 :46; Admin Dose 40 MG; Start 06/16/16 at 06:00 Diphenhydramine HCl (Benadryl) 25 mg HS PRN PO INSOMNIA Last administered on 22:43; Admin Dose 25 MG; Start 06/15/16 at 21:30 Hydralazine HCl (Apresoline) 100 mg Q8 PO Last administered on 06/19/16 21:22 ; Admin Dose 100 MG; Start 06/19/16 at 13:00 PAOLA MOODY MD Jun 19, 2016 22:49
[2016-06-20] VITALS (14 sets, daily range): BP systolic 123–188; BP diastolic 63–82; PULSE 69–70; RESP 18–20
[2016-06-20] MEDS: LEVALBUTEROL (HFA) 15 GM INHALER INH SCH ×3 (00:13→16:07)
[2016-06-20] MEDS: PROMETHAZINE/CODEINE 5ML CUP PO PRN ×2 (00:13→06:03)
[2016-06-20] MEDS: ACCU-CHEK XX SCH ×5 (02:00→22:36)
[2016-06-20] MEDS: PANTOPRAZOLE (EC) 40 MG TAB PO SCH (06:03)
[2016-06-20] MEDS: INSULIN ASPART [NOVOLOG] 3 ML PEN SC SCH ×4 (07:55→22:18)
[2016-06-20 08:03] LABS: BASOPHILS % 0.7 % (0.0-2.0); EOSINOPHILS # 0.3 10^3/ul (0.0-0.5); HEMATOCRIT 29.4 % (42.0-52.0); HEMOGLOBIN 9.8 g/dl (14.0-18.0); LYMPHOCYTES % 13.6 % (15.0-51.0); MEAN CORPUSCULAR HEMOGLOBIN 33.5 pg (29.0-33.0); MEAN CORPUSCULAR HGB CONC 33.2 g/dl (32.0-37.0); MEAN CORPUSCULAR VOLUME 100.9 fl (82.0-101.0); MEAN PLATELET VOLUME 7.6 fl (7.4-10.4); MONOCYTE # 0.7 10^3/ul (0.3-0.9); NEUTROPHIL # 5.2 10^3/ul (1.6-7.5); NEUTROPHILS % 71.7 % (39.0-77.0); PLATELET COUNT 215 10^3/UL (140-440); RED BLOOD COUNT 2.92 10^6/ul (4.70-6.10); RED CELL DISTRIBUTION WIDTH 15.8 % (11.5-14.5); UNCORRECTED WBC 7.2 10^3/ul (4.8-10.8); WHITE BLOOD COUNT 7.2 10^3/ul (4.8-10.8)
[2016-06-20 08:20] LABS: CONDITION 1; LH ANALYZER COMMENTS 1
[2016-06-20 08:35] LABS: POTASSIUM 4.7 mmol/L (3.5-5.1)
[2016-06-20 08:37] LABS: CREATININE 7.96 mg/dl (0.61-1.24)
[2016-06-20 08:38] LABS: CALCIUM 9.6 mg/dl (8.4-10.2)
[2016-06-20] MEDS: ASPIRIN (EC) 81 MG TAB PO SCH (08:40)
[2016-06-20] MEDS: SEVELAMER CARBONATE 0.8 GM PKT PO SCH ×3 (08:40→17:22)
[2016-06-20] MEDS: FERROUS SULFATE (EC) 325 MG TAB PO SCH ×2 (08:40→21:38)
[2016-06-20] MEDS: CHOLECALCIFEROL 400 UNITS TAB PO SCH (08:40)
[2016-06-20] MEDS: FAMOTIDINE 20 MG TAB PO SCH (08:41)
[2016-06-20] MEDS: CLOPIDOGREL 75 MG TAB PO SCH (08:41)
[2016-06-20] MEDS: CALCIUM ACETATE 667 MG CAP PO SCH ×3 (08:41→17:22)
[2016-06-20] MEDS: METOPROLOL 25 MG TAB PO SCH ×2 (08:41→21:40)
[2016-06-20] MEDS: AMLODIPINE 5 MG TAB PO SCH ×2 (08:42→21:40)
[2016-06-20] MEDS: HEPARIN 5,000 UNIT/0.5 ML SYG SC SCH ×2 (08:46→21:00)
--- NOTE | 2016-06-20 09:38 | RADRPT ---
PROCEDURE: CHEST 1VW CLINICAL INDICATION: Shortness of breath TECHNIQUE: Single frontal view of the chest was obtained COMPARISON: 06/15/2016 FINDINGS: Stable left chest wall dual lead pacer device and sternotomy wires. The cardiac size is normal. Aortic vascular calcifications are demonstrated. There is worsening moderate pulmonary vascular congestion. Developing bilateral pleural effusions, right greater than left.. Mild degenerative changes of the visualized osseous structures are visualized. IMPRESSION: 1. Stable cardiomegaly with worsening moderate pulmonary vascular congestion, interstitial edema, an d small to moderate bilateral pleural effusions with associated atelectasis. 2. Atherosclerosis. RPTAT:PP .Erwin Patel MD, MD Date Time Electronically viewed and signed by .Erwin Patel MD, MD on 06/20/2016 09:38 .V/
--- NOTE | 2016-06-20 13:51 | CONS ---
Date/Time of Note Date/Time of Note DATE: 06/20/16 TIME: 13:49 Assessment/Plan Assessment/Plan Chief Complaint/Hosp Course ESRD HTN PNEUMONIA PLEURAL EFFUSION PLAN PER CARDIO NON COMPLIANCE W HD hd am Problems: Consultation Date/Type/Reason Admit Date/Time Jun 13, 2016 at 14:48 Type of Consultation: renal Referring Provider: EVA COX MD 24 HR Interval Summary Constitutional: other (sob better) Exam/Review of Systems Vital Signs Vitals Vital Signs Date Time Temp Pulse Resp B/P Pulse Ox O2 Delivery O2 Flow Rate FiO2 06/20/16 12:04 69 06/20/16 11:04 98.0 18 157/66 96 06/20/16 10:06 Nasal Cannula 2.0 Intake and Output 06/19/16 06/19/16 06/20/16 15:00 23:00 07:00 Intake Total 750 ml 850 ml Output Total 3 ml 4 ml Balance 747 ml 846 ml Exam Neck: supple Respiratory: diminished breath sounds Cardiovascular: regular rate and rhythm Gastrointestinal: soft Musculoskeletal: nl extremities to inspection Extremities: normal pulses Results Result Diagram: 06/20/16 0636 06/20/16 0634 Results 24 hrs Laboratory Tests Test 06/19/16 17:14 06/19/16 21:20 06/20/16 06:34 06/20/16 06:36 Bedside Glucose 127 145 Anion Gap 18 H Blood Urea Nitrogen 62 H Calcium Level 9.6 Carbon Dioxide Level 27 Chloride Level 97 Creatinine 7.96 H Glucose Level 89 Potassium Level 4.7 Sodium Level 137 Basophils # 0.0 Basophils % 0.7 Blood Morphology Comment Eosinophils # 0.3 Eosinophils % 4.0 Hematocrit 29.4 L Hemoglobin 9.8 L Lymphocytes # 1.0 Lymphocytes % 13.6 L Mean Corpuscular Hemoglobin 33.5 H Mean Corpuscular Hemoglobin Concent 33.2 Mean Corpuscular Volume 100.9 Mean Platelet Volume 7.6 Monocytes # 0.7 Monocytes % 10.0 Neutrophils # 5.2 Neutrophils % 71.7 Nucleated Red Blood Cells # 0.0 Nucleated Red Blood Cells % 0.0 Platelet Count 215 Red Blood Count 2.92 L Red Cell Distribution Width 15.8 H White Blood Count 7.2 Test 06/20/16 08:14 06/20/16 11:41 Bedside Glucose 101 117 Medications Medications Current Medications IV Flush (NS 10 ml) 10 ml PRN PRN IV FLUSH LINE; Start 06/13/16 at 19:00 Aspirin (Halfprin) 81 mg DAILY PO Last administered on 06/20/16 08:40; Admin Dose 81 MG; Start 06/14/16 at 09:00 Atorvastatin Calcium (Lipitor) 10 mg QHS PO Last administered on 06/19/16 21: 21; Admin Dose 10 MG; Start 06/14/16 at 21:00 Cholecalciferol (Vitamin D) 400 units DAILY PO Last administered on 06/20/16 08:40; Admin Dose 400 UNITS; Start 06/14/16 at 09:00 Clopidogrel Bisulfate (plaVIX) 75 mg DAILY PO Last administered on 06/20/16 08 :41; Admin Dose 75 MG; Start 06/14/16 at 09:00 Ferrous Sulfate (Ferrous Sulfate (Ec)) 325 mg BID PO Last administered on 08:40; Admin Dose 325 MG; Start 06/14/16 at 09:00 Metoprolol Tartrate (Lopressor) 25 mg BID PO Last administered on 06/20/16 08: 41; Admin Dose 25 MG; Start 06/14/16 at 09:00 Hydralazine HCl (Apresoline) 10 mg Q4H PRN IV for SBP more than 170 Last administered on 06/19/16 17:17; Admin Dose 10 MG; Start 06/14/16 at 00:00 Acetaminophen (Tylenol Tab) 500 mg Q4H PRN PO PAIN AND OR ELEVATED TEMP Last administered on 06/18/16 12:19; Admin Dose 500 MG; Start 06/14/16 at 00:00 Heparin Sodium (Porcine) (Heparin (5000 Units/0.5 ml)) 5,000 unit BID SC Last administered on 06/20/16 08:46; Admin Dose 5,000 UNIT; Start 06/14/16 at 09:00 Miscellaneous Information 1 ea NOTE XX Last administered on 06/18/16 07:57; Admin Dose 1 EA; Start 06/14/16 at 00:30 Glucose (Glutose) 15 gm Q15M PRN PO DECREASED GLUCOSE; Start 06/14/16 at 00:30 Glucose (Glutose) 22.5 gm Q15M PRN PO DECREASED GLUCOSE; Start 06/14/16 at 00: 30 Dextrose (D50w Syringe) 25 ml Q15M PRN IV DECREASED GLUCOSE; Start 06/14/16 at 00:30 Dextrose (D50w Syringe) 50 ml Q15M PRN IV DECREASED GLUCOSE; Start 06/14/16 at 00:30 Glucagon (Glucagen) 1 mg Q15M PRN IM DECREASED GLUCOSE; Start 06/14/16 at 00:30 Glucose (Glutose) 15 gm Q15M PRN BUCCAL DECREASED GLUCOSE; Start 06/14/16 at 00 :30 Diagnostic Test (Pha) (Accucheck) 1 ea 02 XX ; Start 06/14/16 at 02:00 Famotidine (Pepcid) 20 mg DAILY PO Last administered on 06/20/16 08:41; Admin Dose 20 MG; Start 06/14/16 at 09:00 Amlodipine Besylate (Norvasc) 5 mg BID PO Last administered on 06/20/16 08:42 ; Admin Dose 5 MG; Start 06/14/16 at 13:30 Clonidine (Catapres) 0.2 mg Q8 PRN PO Systolic >160 Last administered on 18:16; Admin Dose 0.2 MG; Start 06/14/16 at 13:00 Promethazine HCl/ Codeine (Phenergan/ Codeine) 5 ml Q4H PRN PO COUGH Last administered on 06/20/16 06:03; Admin Dose 5 ML; Start 06/15/16 at 00:00 Insulin Glargine (Lantus) 14 unit QHS SC Last administered on 06/19/16 21:32; Admin Dose 14 UNIT; Start 06/15/16 at 21:00 Pantoprazole (Protonix Tab) 40 mg DAILY@06 PO Last administered on 06/20/16 06 :03; Admin Dose 40 MG; Start 06/16/16 at 06:00 Diphenhydramine HCl (Benadryl) 25 mg HS PRN PO INSOMNIA Last administered on 22:43; Admin Dose 25 MG; Start 06/15/16 at 21:30 Hydralazine HCl (Apresoline) 100 mg Q8 PO Last administered on 06/20/16 06:03 ; Admin Dose 100 MG; Start 06/19/16 at 13:00 PAOLA MOODY MD Jun 20, 2016 13:50
--- NOTE | 2016-06-20 14:03 | CONS ---
Date/Time of Note Date/Time of Note DATE: 06/20/16 TIME: 14:01 Assessment/Plan Assessment/Plan Chief Complaint/Hosp Course IMPRESSION: 1. Abnormal electrocardiogram, assess for acute coronary syndrome.-negative troponin x 3 2. History of recent negative stress, May 2015. 3. History of percutaneous transluminal coronary angioplasty and stent placement in 2014 to the left main left anterior descending. No current chest pain. 4. Hypertension, mildly elevated. 5. History of dyslipidemia. 6. Pleural effusion, status post thoracentesis. 7. Possible pneumonia. 8. Diabetes mellitus. 9. End-stage renal disease, on hemodialysis. RECOMMENDATIONS: -Tele -serial ecg's -Increase metoprolol to improve BP -Continue norvasc/hydralazine -Continue asa/plavix/statin -Consider abx's and f/u cx data -Follow volume status with HD for volume removal Problems: Consultation Date/Type/Reason Admit Date/Time Jun 13, 2016 at 14:48 Initial Consult Date 06/14/2016 Type of Consultation: Cardiology Reason for Consultation CHF Referring Provider: EVA COX MD Exam/Review of Systems Vital Signs Vitals Vital Signs Date Time Temp Pulse Resp B/P Pulse Ox O2 Delivery O2 Flow Rate FiO2 06/20/16 12:04 69 06/20/16 11:04 98.0 18 157/66 96 06/20/16 10:06 Nasal Cannula 2.0 Intake and Output 06/19/16 06/19/16 06/20/16 15:00 23:00 07:00 Intake Total 750 ml 850 ml Output Total 3 ml 4 ml Balance 747 ml 846 ml Exam Review of Systems: CONSTITUTIONAL: No fevers, chills. PULMONARY: mild sob CARDIOVASCULAR: No chest pain/palpitations GASTROINTESTINAL: No nausea/vomiting. GENITOURINARY: No hematuria/dysuria. MUSCULOSKELETAL: No myagias/arthalgias. PSYCHIATRIC: The patient denies depression. NEUROLOGIC: No weakness Constitutional: alert, oriented Psych: no complaints Head: normocephalic ENMT: mucosa pink and moist Neck: jvd (9 cm water), supple Respiratory: diminished breath sounds (at bases/B) Cardiovascular: regular rate and rhythm Gastrointestinal: non-tender, soft Musculoskeletal: muscle tone (normal) Extremities: edema (trace/B) Neurological: other (No focal deficits) Results Result Diagram: 06/20/16 0636 06/20/16 0634 Results 24 hrs Laboratory Tests Test 06/19/16 17:14 06/19/16 21:20 06/20/16 06:34 06/20/16 06:36 Bedside Glucose 127 145 Anion Gap 18 H Blood Urea Nitrogen 62 H Calcium Level 9.6 Carbon Dioxide Level 27 Chloride Level 97 Creatinine 7.96 H Glucose Level 89 Potassium Level 4.7 Sodium Level 137 Basophils # 0.0 Basophils % 0.7 Blood Morphology Comment Eosinophils # 0.3 Eosinophils % 4.0 Hematocrit 29.4 L Hemoglobin 9.8 L Lymphocytes # 1.0 Lymphocytes % 13.6 L Mean Corpuscular Hemoglobin 33.5 H Mean Corpuscular Hemoglobin Concent 33.2 Mean Corpuscular Volume 100.9 Mean Platelet Volume 7.6 Monocytes # 0.7 Monocytes % 10.0 Neutrophils # 5.2 Neutrophils % 71.7 Nucleated Red Blood Cells # 0.0 Nucleated Red Blood Cells % 0.0 Platelet Count 215 Red Blood Count 2.92 L Red Cell Distribution Width 15.8 H White Blood Count 7.2 Test 06/20/16 08:14 06/20/16 11:41 Bedside Glucose 101 117 Medications Medications Current Medications IV Flush (NS 10 ml) 10 ml PRN PRN IV FLUSH LINE; Start 06/13/16 at 19:00 Aspirin (Halfprin) 81 mg DAILY PO Last administered on 06/20/16 08:40; Admin Dose 81 MG; Start 06/14/16 at 09:00 Atorvastatin Calcium (Lipitor) 10 mg QHS PO Last administered on 06/19/16 21: 21; Admin Dose 10 MG; Start 06/14/16 at 21:00 Cholecalciferol (Vitamin D) 400 units DAILY PO Last administered on 06/20/16 08:40; Admin Dose 400 UNITS; Start 06/14/16 at 09:00 Clopidogrel Bisulfate (plaVIX) 75 mg DAILY PO Last administered on 06/20/16 08 :41; Admin Dose 75 MG; Start 06/14/16 at 09:00 Ferrous Sulfate (Ferrous Sulfate (Ec)) 325 mg BID PO Last administered on 08:40; Admin Dose 325 MG; Start 06/14/16 at 09:00 Metoprolol Tartrate (Lopressor) 25 mg BID PO Last administered on 06/20/16 08: 41; Admin Dose 25 MG; Start 06/14/16 at 09:00 Hydralazine HCl (Apresoline) 10 mg Q4H PRN IV for SBP more than 170 Last administered on 06/19/16 17:17; Admin Dose 10 MG; Start 06/14/16 at 00:00 Acetaminophen (Tylenol Tab) 500 mg Q4H PRN PO PAIN AND OR ELEVATED TEMP Last administered on 06/18/16 12:19; Admin Dose 500 MG; Start 06/14/16 at 00:00 Heparin Sodium (Porcine) (Heparin (5000 Units/0.5 ml)) 5,000 unit BID SC Last administered on 06/20/16 08:46; Admin Dose 5,000 UNIT; Start 06/14/16 at 09:00 Miscellaneous Information 1 ea NOTE XX Last administered on 06/18/16 07:57; Admin Dose 1 EA; Start 06/14/16 at 00:30 Glucose (Glutose) 15 gm Q15M PRN PO DECREASED GLUCOSE; Start 06/14/16 at 00:30 Glucose (Glutose) 22.5 gm Q15M PRN PO DECREASED GLUCOSE; Start 06/14/16 at 00: 30 Dextrose (D50w Syringe) 25 ml Q15M PRN IV DECREASED GLUCOSE; Start 06/14/16 at 00:30 Dextrose (D50w Syringe) 50 ml Q15M PRN IV DECREASED GLUCOSE; Start 06/14/16 at 00:30 Glucagon (Glucagen) 1 mg Q15M PRN IM DECREASED GLUCOSE; Start 06/14/16 at 00:30 Glucose (Glutose) 15 gm Q15M PRN BUCCAL DECREASED GLUCOSE; Start 06/14/16 at 00 :30 Diagnostic Test (Pha) (Accucheck) 1 ea 02 XX ; Start 06/14/16 at 02:00 Famotidine (Pepcid) 20 mg DAILY PO Last administered on 06/20/16 08:41; Admin Dose 20 MG; Start 06/14/16 at 09:00 Amlodipine Besylate (Norvasc) 5 mg BID PO Last administered on 06/20/16 08:42 ; Admin Dose 5 MG; Start 06/14/16 at 13:30 Clonidine (Catapres) 0.2 mg Q8 PRN PO Systolic >160 Last administered on 18:16; Admin Dose 0.2 MG; Start 06/14/16 at 13:00 Promethazine HCl/ Codeine (Phenergan/ Codeine) 5 ml Q4H PRN PO COUGH Last administered on 06/20/16 06:03; Admin Dose 5 ML; Start 06/15/16 at 00:00 Insulin Glargine (Lantus) 14 unit QHS SC Last administered on 06/19/16 21:32; Admin Dose 14 UNIT; Start 06/15/16 at 21:00 Pantoprazole (Protonix Tab) 40 mg DAILY@06 PO Last administered on 06/20/16 06 :03; Admin Dose 40 MG; Start 06/16/16 at 06:00 Diphenhydramine HCl (Benadryl) 25 mg HS PRN PO INSOMNIA Last administered on 22:43; Admin Dose 25 MG; Start 06/15/16 at 21:30 Hydralazine HCl (Apresoline) 100 mg Q8 PO Last administered on 06/20/16 06:03 ; Admin Dose 100 MG; Start 06/19/16 at 13:00 SHERITA SCOTT Jun 20, 2016 14:03
--- NOTE | 2016-06-20 16:32 | PN ---
Date/Time of Note Date/Time of Note DATE: 06/20/16 TIME: 16:29 Assessment/Plan VTE Prophylaxis VTE Prophylaxis Intervention: SCD's Lines/Catheters [facility] ([facility] PICC Line Central line still needed: Yes Urinary Cath still in place: No Assessment/Plan Chief Complaint/Hosp Course Assessment and plan -Recurrent pleural effusions. - Right pleural effusion, status post thoracentesis. Dr. Dale is following in pulmonology consultation. - End-stage renal disease, continue hemodialysis. Dr. Saunders is following in nephrology consultation. - Diabetes mellitus type 2, continue Lantus and NovoLog - Hypertension. Dr. De Santiago is following and cardiology consultation. - Coronary artery disease, status post coronary artery bypass graft. Continue aspirin and Plavix. - Permanent pacemaker. No acute issues. - Dyslipidemia. Continue Lipitor. Continue heparin for deep venous thrombosis prophylaxis and Protonix for peptic ulcer disease prophylaxis. Further recommendations based on clinical course. Plan of care discussed with Dr. Price. Problems: Subjective 24 Hr Interval Summary Free Text/Dictation Patient desaturates off oxygen, chest x-ray with worsening pulmonary vascular congestion and [id number] bilateral pleural effusions with atelectasis, patient denies fever nausea vomiting. Will recheck chest x-ray tomorrow after hemodialysis. Exam/Review of Systems Vital Signs Vitals Vital Signs Date Time Temp Pulse Resp B/P Pulse Ox O2 Delivery O2 Flow Rate FiO2 06/20/16 16:19 2.0 06/20/16 16:04 98.4 70 20 172/64 93 Nasal Cannula Intake and Output 06/19/16 06/19/16 06/20/16 15:00 23:00 07:00 Intake Total 750 ml 850 ml Output Total 3 ml 4 ml Balance 747 ml 846 ml Exam Constitutional: alert Psych: no complaints Head: atraumatic, normocephalic Eyes: nl conjunctiva ENMT: nl external ears & nose Neck: non-tender, supple Respiratory: clear to auscultation Cardiovascular: nl pulses Gastrointestinal: non-tender, soft Musculoskeletal: nl extremities to inspection Extremities: normal pulses Neurological: [employer] II-XII intact Skin: nl turgor Results Result Diagram: 06/20/16 0636 06/20/16 0634 Results 24 hrs Laboratory Tests Test 06/19/16 17:14 06/19/16 21:20 06/20/16 06:34 06/20/16 06:36 Bedside Glucose 127 145 Anion Gap 18 H Blood Urea Nitrogen 62 H Calcium Level 9.6 Carbon Dioxide Level 27 Chloride Level 97 Creatinine 7.96 H Glucose Level 89 Potassium Level 4.7 Sodium Level 137 Basophils # 0.0 Basophils % 0.7 Blood Morphology Comment Eosinophils # 0.3 Eosinophils % 4.0 Hematocrit 29.4 L Hemoglobin 9.8 L Lymphocytes # 1.0 Lymphocytes % 13.6 L Mean Corpuscular Hemoglobin 33.5 H Mean Corpuscular Hemoglobin Concent 33.2 Mean Corpuscular Volume 100.9 Mean Platelet Volume 7.6 Monocytes # 0.7 Monocytes % 10.0 Neutrophils # 5.2 Neutrophils % 71.7 Nucleated Red Blood Cells # 0.0 Nucleated Red Blood Cells % 0.0 Platelet Count 215 Red Blood Count 2.92 L Red Cell Distribution Width 15.8 H White Blood Count 7.2 Test 06/20/16 08:14 06/20/16 11:41 Bedside Glucose 101 117 Medications Medications Current Medications IV Flush (NS 10 ml) 10 ml PRN PRN IV FLUSH LINE; Start 06/13/16 at 19:00 Aspirin (Halfprin) 81 mg DAILY PO Last administered on 06/20/16 08:40; Admin Dose 81 MG; Start 06/14/16 at 09:00 Atorvastatin Calcium (Lipitor) 10 mg QHS PO Last administered on 06/19/16 21: 21; Admin Dose 10 MG; Start 06/14/16 at 21:00 Cholecalciferol (Vitamin D) 400 units DAILY PO Last administered on 06/20/16 08:40; Admin Dose 400 UNITS; Start 06/14/16 at 09:00 Clopidogrel Bisulfate (plaVIX) 75 mg DAILY PO Last administered on 06/20/16 08 :41; Admin Dose 75 MG; Start 06/14/16 at 09:00 Ferrous Sulfate (Ferrous Sulfate (Ec)) 325 mg BID PO Last administered on 08:40; Admin Dose 325 MG; Start 06/14/16 at 09:00 Metoprolol Tartrate (Lopressor) 25 mg BID PO Last administered on 06/20/16 08: 41; Admin Dose 25 MG; Start 06/14/16 at 09:00 Hydralazine HCl (Apresoline) 10 mg Q4H PRN IV for SBP more than 170 Last administered on 06/19/16 17:17; Admin Dose 10 MG; Start 06/14/16 at 00:00 Acetaminophen (Tylenol Tab) 500 mg Q4H PRN PO PAIN AND OR ELEVATED TEMP Last administered on 06/18/16 12:19; Admin Dose 500 MG; Start 06/14/16 at 00:00 Heparin Sodium (Porcine) (Heparin (5000 Units/0.5 ml)) 5,000 unit BID SC Last administered on 06/20/16 08:46; Admin Dose 5,000 UNIT; Start 06/14/16 at 09:00 Miscellaneous Information 1 ea NOTE XX Last administered on 06/18/16 07:57; Admin Dose 1 EA; Start 06/14/16 at 00:30 Glucose (Glutose) 15 gm Q15M PRN PO DECREASED GLUCOSE; Start 06/14/16 at 00:30 Glucose (Glutose) 22.5 gm Q15M PRN PO DECREASED GLUCOSE; Start 06/14/16 at 00: 30 Dextrose (D50w Syringe) 25 ml Q15M PRN IV DECREASED GLUCOSE; Start 06/14/16 at 00:30 Dextrose (D50w Syringe) 50 ml Q15M PRN IV DECREASED GLUCOSE; Start 06/14/16 at 00:30 Glucagon (Glucagen) 1 mg Q15M PRN IM DECREASED GLUCOSE; Start 06/14/16 at 00:30 Glucose (Glutose) 15 gm Q15M PRN BUCCAL DECREASED GLUCOSE; Start 06/14/16 at 00 :30 Diagnostic Test (Pha) (Accucheck) 1 ea 02 XX ; Start 06/14/16 at 02:00 Famotidine (Pepcid) 20 mg DAILY PO Last administered on 06/20/16 08:41; Admin Dose 20 MG; Start 06/14/16 at 09:00 Amlodipine Besylate (Norvasc) 5 mg BID PO Last administered on 06/20/16 08:42 ; Admin Dose 5 MG; Start 06/14/16 at 13:30 Clonidine (Catapres) 0.2 mg Q8 PRN PO Systolic >160 Last administered on 18:16; Admin Dose 0.2 MG; Start 06/14/16 at 13:00 Promethazine HCl/ Codeine (Phenergan/ Codeine) 5 ml Q4H PRN PO COUGH Last administered on 06/20/16 06:03; Admin Dose 5 ML; Start 06/15/16 at 00:00 Insulin Glargine (Lantus) 14 unit QHS SC Last administered on 06/19/16 21:32; Admin Dose 14 UNIT; Start 06/15/16 at 21:00 Pantoprazole (Protonix Tab) 40 mg DAILY@06 PO Last administered on 06/20/16 06 :03; Admin Dose 40 MG; Start 06/16/16 at 06:00 Diphenhydramine HCl (Benadryl) 25 mg HS PRN PO INSOMNIA Last administered on 22:43; Admin Dose 25 MG; Start 06/15/16 at 21:30 Hydralazine HCl (Apresoline) 100 mg Q8 PO Last administered on 06/20/16 16:07 ; Admin Dose 100 MG; Start 06/19/16 at 13:00 CECILIA DAMICO Jun 20, 2016 16:32
--- NOTE | 2016-06-20 19:08 | PN ---
Date/Time of Note Date/Time of Note DATE: 06/20/16 TIME: 19:08 Assessment/Plan VTE Prophylaxis VTE Prophylaxis Intervention: other Lines/Catheters IV C[facility]ter Type (from [facility]): Urinary Cath still in place: No Assessment/Plan Chief Complaint/Hosp Course IMPRESSION: Bilateral pleural effusions status post thoracentesis with much improvement. At this time, would continue monitoring the chest x-ray. If effusions recur and they are loculated, patient would benefit from a VATS decortication. Will discuss with the referring physicians. Problems: Subjective 24 Hr Interval Summary Gastrointestinal: no complaints Genitourinary: no complaints Musculoskeletal: no complaints Skin: no complaints Exam/Review of Systems Vital Signs Vitals Vital Signs Date Time Temp Pulse Resp B/P Pulse Ox O2 Delivery O2 Flow Rate FiO2 06/20/16 17:22 20 156/72 94 Nasal Cannula 2.0 06/20/16 16:04 98.4 70 Intake and Output 06/19/16 06/19/16 06/20/16 15:00 23:00 07:00 Intake Total 750 ml 850 ml Output Total 3 ml 4 ml Balance 747 ml 846 ml Exam ENMT: nl external ears & nose, nl lips & teeth, nl nasal mucosa & septum Neck: non-tender, supple Respiratory: clear to auscultation, normal air movement Cardiovascular: nl pulses, regular rate and rhythm Results Result Diagram: 06/20/16 0636 06/20/16 0634 Results 24 hrs Laboratory Tests Test 06/19/16 21:20 06/20/16 06:34 06/20/16 06:36 06/20/16 08:14 Bedside Glucose 145 101 Anion Gap 18 H Blood Urea Nitrogen 62 H Calcium Level 9.6 Carbon Dioxide Level 27 Chloride Level 97 Creatinine 7.96 H Glucose Level 89 Potassium Level 4.7 Sodium Level 137 Basophils # 0.0 Basophils % 0.7 Blood Morphology Comment Eosinophils # 0.3 Eosinophils % 4.0 Hematocrit 29.4 L Hemoglobin 9.8 L Lymphocytes # 1.0 Lymphocytes % 13.6 L Mean Corpuscular Hemoglobin 33.5 H Mean Corpuscular Hemoglobin Concent 33.2 Mean Corpuscular Volume 100.9 Mean Platelet Volume 7.6 Monocytes # 0.7 Monocytes % 10.0 Neutrophils # 5.2 Neutrophils % 71.7 Nucleated Red Blood Cells # 0.0 Nucleated Red Blood Cells % 0.0 Platelet Count 215 Red Blood Count 2.92 L Red Cell Distribution Width 15.8 H White Blood Count 7.2 Test 06/20/16 11:41 06/20/16 17:20 Bedside Glucose 117 189 Medications Medications Current Medications IV Flush (NS 10 ml) 10 ml PRN PRN IV FLUSH LINE; Start 06/13/16 at 19:00 Aspirin (Halfprin) 81 mg DAILY PO Last administered on 06/20/16 08:40; Admin Dose 81 MG; Start 06/14/16 at 09:00 Atorvastatin Calcium (Lipitor) 10 mg QHS PO Last administered on 06/19/16 21: 21; Admin Dose 10 MG; Start 06/14/16 at 21:00 Cholecalciferol (Vitamin D) 400 units DAILY PO Last administered on 06/20/16 08:40; Admin Dose 400 UNITS; Start 06/14/16 at 09:00 Clopidogrel Bisulfate (plaVIX) 75 mg DAILY PO Last administered on 06/20/16 08 :41; Admin Dose 75 MG; Start 06/14/16 at 09:00 Ferrous Sulfate (Ferrous Sulfate (Ec)) 325 mg BID PO Last administered on 08:40; Admin Dose 325 MG; Start 06/14/16 at 09:00 Metoprolol Tartrate (Lopressor) 25 mg BID PO Last administered on 06/20/16 08: 41; Admin Dose 25 MG; Start 06/14/16 at 09:00 Hydralazine HCl (Apresoline) 10 mg Q4H PRN IV for SBP more than 170 Last administered on 06/19/16 17:17; Admin Dose 10 MG; Start 06/14/16 at 00:00 Acetaminophen (Tylenol Tab) 500 mg Q4H PRN PO PAIN AND OR ELEVATED TEMP Last administered on 06/18/16 12:19; Admin Dose 500 MG; Start 06/14/16 at 00:00 Heparin Sodium (Porcine) (Heparin (5000 Units/0.5 ml)) 5,000 unit BID SC Last administered on 06/20/16 08:46; Admin Dose 5,000 UNIT; Start 06/14/16 at 09:00 Miscellaneous Information 1 ea NOTE XX Last administered on 06/18/16 07:57; Admin Dose 1 EA; Start 06/14/16 at 00:30 Glucose (Glutose) 15 gm Q15M PRN PO DECREASED GLUCOSE; Start 06/14/16 at 00:30 Glucose (Glutose) 22.5 gm Q15M PRN PO DECREASED GLUCOSE; Start 06/14/16 at 00: 30 Dextrose (D50w Syringe) 25 ml Q15M PRN IV DECREASED GLUCOSE; Start 06/14/16 at 00:30 Dextrose (D50w Syringe) 50 ml Q15M PRN IV DECREASED GLUCOSE; Start 06/14/16 at 00:30 Glucagon (Glucagen) 1 mg Q15M PRN IM DECREASED GLUCOSE; Start 06/14/16 at 00:30 Glucose (Glutose) 15 gm Q15M PRN BUCCAL DECREASED GLUCOSE; Start 06/14/16 at 00 :30 Diagnostic Test (Pha) (Accucheck) ea 02 XX ; Start 06/14/16 at 02:00 Famotidine (Pepcid) 20 mg DAILY PO Last administered on 06/20/16 08:41; Admin Dose 20 MG; Start 06/14/16 at 09:00 Amlodipine Besylate (Norvasc) 5 mg BID PO Last administered on 06/20/16 08:42 ; Admin Dose 5 MG; Start 06/14/16 at 13:30 Clonidine (Catapres) 0.2 mg Q8 PRN PO Systolic >160 Last administered on 18:16; Admin Dose 0.2 MG; Start 06/14/16 at 13:00 Promethazine HCl/ Codeine (Phenergan/ Codeine) 5 ml Q4H PRN PO COUGH Last administered on 06/20/16 06:03; Admin Dose 5 ML; Start 06/15/16 at 00:00 Insulin Glargine (Lantus) 14 unit QHS SC Last administered on 06/19/16 21:32; Admin Dose 14 UNIT; Start 06/15/16 at 21:00 Pantoprazole (Protonix Tab) 40 mg DAILY@06 PO Last administered on 06/20/16 06 :03; Admin Dose 40 MG; Start 06/16/16 at 06:00 Diphenhydramine HCl (Benadryl) 25 mg HS PRN PO INSOMNIA Last administered on 22:43; Admin Dose 25 MG; Start 06/15/16 at 21:30 Hydralazine HCl (Apresoline) 100 mg Q8 PO Last administered on 06/20/16t 16:07 ; Admin Dose 100 MG; Start 06/19/16 at 13:00 LILIA FELIZ MD Jun 20, 2016 19:08
[2016-06-20] MEDS: ATORVASTATIN 10 MG TAB PO SCH (21:39)
[2016-06-20] MEDS: INSULIN GLARGINE [LANtus] 3 ML PEN SC SCH (23:18)
[2016-06-21] VITALS (20 sets, daily range): BP systolic 137–192; BP diastolic 64–80; PULSE 68–73; RESP 16–20
[2016-06-21] MEDS: PROMETHAZINE/CODEINE 5ML CUP PO PRN ×2 (00:13→18:04)
[2016-06-21] MEDS: LEVALBUTEROL (HFA) 15 GM INHALER INH SCH ×3 (01:57→17:25)
[2016-06-21] MEDS: ACCU-CHEK XX SCH ×5 (02:11→21:46)
[2016-06-21] MEDS: PANTOPRAZOLE (EC) 40 MG TAB PO SCH (06:45)
[2016-06-21 07:02] LABS: BASOPHILS % 0.7 % (0.0-2.0); EOSINOPHILS # 0.3 10^3/ul (0.0-0.5); EOSINOPHILS % 3.5 % (0.0-7.0); HEMOGLOBIN 9.8 g/dl (14.0-18.0); LYMPHOCYTES # 1.2 10^3/ul (0.8-2.9); LYMPHOCYTES % 16.1 % (15.0-51.0); MEAN CORPUSCULAR HEMOGLOBIN 33.6 pg (29.0-33.0); MEAN CORPUSCULAR HGB CONC 33.6 g/dl (32.0-37.0); MEAN CORPUSCULAR VOLUME 99.9 fl (82.0-101.0); MEAN PLATELET VOLUME 7.2 fl (7.4-10.4); MONOCYTE # 0.7 10^3/ul (0.3-0.9); MONOCYTES % 10.1 % (0.0-11.0); NEUTROPHIL # 5.1 10^3/ul (1.6-7.5); NEUTROPHILS % 69.6 % (39.0-77.0); PLATELET COUNT 242 10^3/UL (140-440); RED BLOOD COUNT 2.91 10^6/ul (4.70-6.10); RED CELL DISTRIBUTION WIDTH 15.1 % (11.5-14.5); UNCORRECTED WBC 7.4 10^3/ul (4.8-10.8); WHITE BLOOD COUNT 7.4 10^3/ul (4.8-10.8)
[2016-06-21 07:06] LABS: CONDITION 1; LH ANALYZER COMMENTS 1
[2016-06-21 07:34] LABS: POTASSIUM 4.7 mmol/L (3.5-5.1)
[2016-06-21] MEDS: INSULIN ASPART [NOVOLOG] 3 ML PEN SC SCH ×4 (07:35→21:44)
[2016-06-21 07:37] LABS: CREATININE 8.85 mg/dl (0.61-1.24)
[2016-06-21 07:38] LABS: CALCIUM 9.8 mg/dl (8.4-10.2)
--- NOTE | 2016-06-21 08:41 | RADRPT ---
PROCEDURE: XR Chest. CLINICAL INDICATION: Pneumonia and pleural effusion. TECHNIQUE: Single frontal view of the chest was obtained COMPARISON: Chest x-ray 06/20 2016 09:09 a.m. FINDINGS: A dual-chamber pacemaker is identified with electrode leads projecting at the level of the right atr ium and right ventricle. There is a moderate-sized right pleural effusion with infiltrates in the r ight hilar area and right lower lobe. There are patchy infiltrates in the left lower lobe of the sm all left pleural effusion which is unchanged. The heart remains enlarged. A mediastinotomy was per formed with clips in the mediastinal area for prior thoracic surgery. IMPRESSION: 1. Cardiomegaly. 2. Perihilar and basilar infiltrates associated with bilateral pleural effusions. Associated compr essive atelectasis in the bases of the lungs. 3. Status post median sternotomy for thoracic surgery. 4. Dual chamber cardiac pacemaker. There are 5 atherosclerosis of the aortic arch. RPTAT:AAJJ Physician Camille Date Time Electronically viewed and signed by Physician Camille on 06/21/2016 08:41 ROSA/
[2016-06-21] MEDS: SEVELAMER CARBONATE 0.8 GM PKT PO SCH ×3 (09:16→17:14)
[2016-06-21] MEDS: FERROUS SULFATE (EC) 325 MG TAB PO SCH ×2 (09:17→21:30)
[2016-06-21] MEDS: CALCIUM ACETATE 667 MG CAP PO SCH ×3 (09:17→17:14)
[2016-06-21] MEDS: ASPIRIN (EC) 81 MG TAB PO SCH (09:18)
[2016-06-21] MEDS: AMLODIPINE 5 MG TAB PO SCH ×2 (09:19→21:30)
[2016-06-21] MEDS: CLOPIDOGREL 75 MG TAB PO SCH (09:19)
[2016-06-21] MEDS: CHOLECALCIFEROL 400 UNITS TAB PO SCH (09:19)
[2016-06-21] MEDS: FAMOTIDINE 20 MG TAB PO SCH (09:19)
[2016-06-21] MEDS: METOPROLOL 25 MG TAB PO SCH ×2 (09:19→21:30)
[2016-06-21] MEDS: HEPARIN 5,000 UNIT/0.5 ML SYG SC SCH ×2 (09:23→21:00)
--- NOTE | 2016-06-21 09:31 | PN ---
Date/Time of Note Date/Time of Note DATE: 06/21/16 TIME: 09:31 Assessment/Plan VTE Prophylaxis VTE Prophylaxis Intervention: other Lines/Catheters IV Catheter Type (from [facility]): PICC Line Central line still needed: Yes Urinary Cath still in place: No Assessment/Plan Chief Complaint/Hosp Course - Right pleural effusion, status post thoracentesis. Dr. Dale is following in pulmonology consultation. - End-stage renal disease, continue hemodialysis. Dr. Saunders is following in nephrology consultation. - Diabetes mellitus type 2, continue Lantus and NovoLog - Hypertension. Dr. De Santiago is following and cardiology consultation. - Coronary artery disease, status post coronary artery bypass graft. Continue aspirin and Plavix. - Permanent pacemaker. No acute issues. - Dyslipidemia. Continue Lipitor. Continue heparin for deep venous thrombosis prophylaxis and Protonix for peptic ulcer disease prophylaxis. Problems: Subjective 24 Hr Interval Summary Free Text/Dictation Patient has no complaints Exam/Review of Systems Vital Signs Vitals Vital Signs Date Time Temp Pulse Resp B/P Pulse Ox O2 Delivery O2 Flow Rate FiO2 06/21/16 08:45 69 06/21/16 07:54 98.6 18 183/77 93 06/21/16 04:05 Nasal Cannula 2.0 Intake and Output 06/20/16 06/20/16 06/21/16 15:00 23:00 07:00 Intake Total 700 ml 120 ml Output Total 4 ml 3 ml Balance 696 ml 117 ml Exam Constitutional: well developed Head: atraumatic, normocephalic Neck: supple Respiratory: diminished breath sounds Cardiovascular: regular rate and rhythm Gastrointestinal: non-tender, soft Results Result Diagram: 06/21/16 0630 06/21/16 0630 Results 24 hrs Laboratory Tests Test 06/20/16 11:41 06/20/16 17:20 06/20/16 21:37 06/21/16 02:09 Bedside Glucose 117 189 142 114 Test 06/21/16 06:30 06/21/16 07:26 Anion Gap 16 Basophils # 0.0 Basophils % 0.7 Blood Morphology Comment Blood Urea Nitrogen 69 H Calcium Level 9.8 Carbon Dioxide Level 29 Chloride Level 98 Creatinine 8.85 H Eosinophils # 0.3 Eosinophils % 3.5 Glucose Level 64 #L Hematocrit 29.0 L Hemoglobin 9.8 L Lymphocytes # 1.2 Lymphocytes % 16.1 Mean Corpuscular Hemoglobin 33.6 H Mean Corpuscular Hemoglobin Concent 33.6 Mean Corpuscular Volume 99.9 Mean Platelet Volume 7.2 L Monocytes # 0.7 Monocytes % 10.1 Neutrophils # 5.1 Neutrophils % 69.6 Nucleated Red Blood Cells # 0.0 Nucleated Red Blood Cells % 0.0 Platelet Count 242 Potassium Level 4.7 Red Blood Count 2.91 L Red Cell Distribution Width 15.1 H Sodium Level 138 White Blood Count 7.4 Bedside Glucose 71 Medications Medications Current Medications IV Flush (NS 10 ml) 10 ml PRN PRN IV FLUSH LINE; Start 06/13/16 at 19:00 Aspirin (Halfprin) 81 mg DAILY PO Last administered on 06/21/16 09:18; Admin Dose 81 MG; Start 06/14/16 at 09:00 Atorvastatin Calcium (Lipitor) 10 mg QHS PO Last administered on 06/20/16 21: 39; Admin Dose 10 MG; Start 06/14/16 at 21:00 Cholecalciferol (Vitamin D) 400 units DAILY PO Last administered on 06/21/16 09:19; Admin Dose 400 UNITS; Start 06/14/16 at 09:00 Clopidogrel Bisulfate (plaVIX) 75 mg DAILY PO Last administered on 06/21/16 09 :19; Admin Dose 75 MG; Start 06/14/16 at 09:00 Ferrous Sulfate (Ferrous Sulfate (Ec)) 325 mg BID PO Last administered on 09:17; Admin Dose 325 MG; Start 06/14/16 at 09:00 Metoprolol Tartrate (Lopressor) 25 mg BID PO Last administered on 06/21/16 09: 19; Admin Dose 25 MG; Start 06/14/16 at 09:00 Hydralazine HCl (Apresoline) 10 mg Q4H PRN IV for SBP more than 170 Last administered on 06/19/16 17:17; Admin Dose 10 MG; Start 06/14/16 at 00:00 Acetaminophen (Tylenol Tab) 500 mg Q4H PRN PO PAIN AND OR ELEVATED TEMP Last administered on 06/18/16 12:19; Admin Dose 500 MG; Start 06/14/16 at 00:00 Heparin Sodium (Porcine) (Heparin (5000 Units/0.5 ml)) 5,000 unit BID SC Last administered on 06/21/16 09:23; Admin Dose 5,000 UNIT; Start 06/14/16 at 09:00 Miscellaneous Information 1 ea NOTE XX Last administered on 06/18/16 07:57; Admin Dose 1 EA; Start 06/14/16 at 00:30 Glucose (Glutose) 15 gm Q15M PRN PO DECREASED GLUCOSE; Start 06/14/16 at 00:30 Glucose (Glutose) 22.5 gm Q15M PRN PO DECREASED GLUCOSE; Start 06/14/16 at 00: 30 Dextrose (D50w Syringe) 25 ml Q15M PRN IV DECREASED GLUCOSE; Start 06/14/16 at 00:30 Dextrose (D50w Syringe) 50 ml Q15M PRN IV DECREASED GLUCOSE; Start 06/14/16 at 00:30 Glucagon (Glucagen) 1 mg Q15M PRN IM DECREASED GLUCOSE; Start 06/14/16 at 00:30 Glucose (Glutose) 15 gm Q15M PRN BUCCAL DECREASED GLUCOSE; Start 06/14/16 at 00 :30 Diagnostic Test (Pha) (Accucheck) 1 ea 02 XX Last administered on 06/21/16 02: 11; Admin Dose 1 EA; Start 06/14/16 at 02:00 Famotidine (Pepcid) 20 mg DAILY PO Last administered on 06/21/16 09:19; Admin Dose 20 MG; Start 06/14/16 at 09:00 Amlodipine Besylate (Norvasc) 5 mg BID PO Last administered on 06/21/16 09:19 ; Admin Dose 5 MG; Start 06/14/16 at 13:30 Clonidine (Catapres) 0.2 mg Q8 PRN PO Systolic >160 Last administered on 18:16; Admin Dose 0.2 MG; Start 06/14/16 at 13:00 Promethazine HCl/ Codeine (Phenergan/ Codeine) 5 ml Q4H PRN PO COUGH Last administered on 06/21/16 00:13; Admin Dose 5 ML; Start 06/15/16 at 00:00 Insulin Glargine (Lantus) 14 unit QHS SC Last administered on 06/20/16 23:18; Admin Dose 14 UNIT; Start 06/15/16 at 21:00 Pantoprazole (Protonix Tab) 40 mg DAILY@06 PO Last administered on 06/21/16 06 :45; Admin Dose 40 MG; Start 06/16/16 at 06:00 Diphenhydramine HCl (Benadryl) 25 mg HS PRN PO INSOMNIA Last administered on 22:43; Admin Dose 25 MG; Start 06/15/16 at 21:30 Hydralazine HCl (Apresoline) 100 mg Q8 PO Last administered on 06/21/16 06:46 ; Admin Dose 100 MG; Start 06/19/16 at 13:00 HELEN SHARP Jun 21, 2016 09:31
--- NOTE | 2016-06-21 12:22 | CONS ---
Date/Time of Note Date/Time of Note DATE: 06/21/16 TIME: 12:21 Assessment/Plan Assessment/Plan Chief Complaint/Hosp Course ESRD HTN PNEUMONIA PLEURAL EFFUSION PLAN PER CARDIO NON COMPLIANCE W HD hd refused hd 3 x wk Problems: Consultation Date/Type/Reason Admit Date/Time Jun 13, 2016 at 14:48 Type of Consultation: renal Referring Provider: EVA COX MD 24 HR Interval Summary Constitutional: other (sob+) Exam/Review of Systems Vital Signs Vitals Vital Signs Date Time Temp Pulse Resp B/P Pulse Ox O2 Delivery O2 Flow Rate FiO2 06/21/16 11:38 98.5 70 20 192/80 94 06/21/16 09:30 Nasal Cannula 2.0 Intake and Output 06/20/16 06/20/16 06/21/16 15:00 23:00 07:00 Intake Total 700 ml 120 ml Output Total 4 ml 3 ml Balance 696 ml 117 ml Exam Respiratory: diminished breath sounds Cardiovascular: regular rate and rhythm Gastrointestinal: soft Musculoskeletal: nl extremities to inspection Extremities: normal pulses Results Result Diagram: 06/21/16 0630 06/21/16 0630 Results 24 hrs Laboratory Tests Test 06/20/16 17:20 06/20/16 21:37 06/21/16 02:09 06/21/16 06:30 Bedside Glucose 189 142 114 Anion Gap 16 Basophils # 0.0 Basophils % 0.7 Blood Morphology Comment Blood Urea Nitrogen 69 H Calcium Level 9.8 Carbon Dioxide Level 29 Chloride Level 98 Creatinine 8.85 H Eosinophils # 0.3 Eosinophils % 3.5 Glucose Level 64 #L Hematocrit 29.0 L Hemoglobin 9.8 L Lymphocytes # 1.2 Lymphocytes % 16.1 Mean Corpuscular Hemoglobin 33.6 H Mean Corpuscular Hemoglobin Concent 33.6 Mean Corpuscular Volume 99.9 Mean Platelet Volume 7.2 L Monocytes # 0.7 Monocytes % 10.1 Neutrophils # 5.1 Neutrophils % 69.6 Nucleated Red Blood Cells # 0.0 Nucleated Red Blood Cells % 0.0 Platelet Count 242 Potassium Level 4.7 Red Blood Count 2.91 L Red Cell Distribution Width 15.1 H Sodium Level 138 White Blood Count 7.4 Test 06/21/16 07:26 06/21/16 11:20 Bedside Glucose 71 124 Medications Medications Current Medications IV Flush (NS 10 ml) 10 ml PRN PRN IV FLUSH LINE; Start 06/13/16 at 19:00 Aspirin (Halfprin) 81 mg DAILY PO Last administered on 06/21/16 09:18; Admin Dose 81 MG; Start 06/14/16 at 09:00 Atorvastatin Calcium (Lipitor) 10 mg QHS PO Last administered on 06/20/16 21: 39; Admin Dose 10 MG; Start 06/14/16 at 21:00 Cholecalciferol (Vitamin D) 400 units DAILY PO Last administered on 06/21/16 09:19; Admin Dose 400 UNITS; Start 06/14/16 at 09:00 Clopidogrel Bisulfate (plaVIX) 75 mg DAILY PO Last administered on 06/21/16 09 :19; Admin Dose 75 MG; Start 06/14/16 at 09:00 Ferrous Sulfate (Ferrous Sulfate (Ec)) 325 mg BID PO Last administered on 09:17; Admin Dose 325 MG; Start 06/14/16 at 09:00 Metoprolol Tartrate (Lopressor) 25 mg BID PO Last administered on 06/21/16 09: 19; Admin Dose 25 MG; Start 06/14/16 at 09:00 Hydralazine HCl (Apresoline) 10 mg Q4H PRN IV for SBP more than 170 Last administered on 06/19/16 17:17; Admin Dose 10 MG; Start 06/14/16 at 00:00 Acetaminophen (Tylenol Tab) 500 mg Q4H PRN PO PAIN AND OR ELEVATED TEMP Last administered on 06/18/16 12:19; Admin Dose 500 MG; Start 06/14/16 at 00:00 Heparin Sodium (Porcine) (Heparin (5000 Units/0.5 ml)) 5,000 unit BID SC Last administered on 06/21/16 09:23; Admin Dose 5,000 UNIT; Start 06/14/16 at 09:00 Miscellaneous Information 1 ea NOTE XX Last administered on 06/18/16 07:57; Admin Dose 1 EA; Start 06/14/16 at 00:30 Glucose (Glutose) 15 gm Q15M PRN PO DECREASED GLUCOSE; Start 06/14/16 at 00:30 Glucose (Glutose) 22.5 gm Q15M PRN PO DECREASED GLUCOSE; Start 06/14/16 at 00: 30 Dextrose (D50w Syringe) 25 ml Q15M PRN IV DECREASED GLUCOSE; Start 06/14/16 at 00:30 Dextrose (D50w Syringe) 50 ml Q15M PRN IV DECREASED GLUCOSE; Start 06/14/16 at 00:30 Glucagon (Glucagen) 1 mg Q15M PRN IM DECREASED GLUCOSE; Start 06/14/16 at 00:30 Glucose (Glutose) 15 gm Q15M PRN BUCCAL DECREASED GLUCOSE; Start 06/14/16 at 00 :30 Diagnostic Test (Pha) (Accucheck) 1 ea 02 XX Last administered on 06/21/16 02: 11; Admin Dose 1 EA; Start 06/14/16 at 02:00 Famotidine (Pepcid) 20 mg DAILY PO Last administered on 06/21/16 09:19; Admin Dose 20 MG; Start 06/14/16 at 09:00 Amlodipine Besylate (Norvasc) 5 mg BID PO Last administered on 06/21/16 09:19 ; Admin Dose 5 MG; Start 06/14/16 at 13:30 Clonidine (Catapres) 0.2 mg Q8 PRN PO Systolic >160 Last administered on 18:16; Admin Dose 0.2 MG; Start 06/14/16 at 13:00 Promethazine HCl/ Codeine (Phenergan/ Codeine) 5 ml Q4H PRN PO COUGH Last administered on 06/21/16 00:13; Admin Dose 5 ML; Start 06/15/16 at 00:00 Insulin Glargine (Lantus) 14 unit QHS SC Last administered on 06/20/16 23:18; Admin Dose 14 UNIT; Start 06/15/16 at 21:00 Pantoprazole (Protonix Tab) 40 mg DAILY@06 PO Last administered on 06/21/16 06 :45; Admin Dose 40 MG; Start 06/16/16 at 06:00 Diphenhydramine HCl (Benadryl) 25 mg HS PRN PO INSOMNIA Last administered on 22:43; Admin Dose 25 MG; Start 06/15/16 at 21:30 Hydralazine HCl (Apresoline) 100 mg Q8 PO Last administered on 06/21/16 06:46 ; Admin Dose 100 MG; Start 06/19/16 at 13:00 PAOLA MOODY MD Jun 21, 2016 12:22
--- NOTE | 2016-06-21 13:05 | CONS ---
Date/Time of Note Date/Time of Note DATE: 06/21/16 TIME: 13:02 Assessment/Plan Assessment/Plan Chief Complaint/Hosp Course IMPRESSION: 1. Abnormal electrocardiogram, assess for acute coronary syndrome.-negative troponin x 3 2. History of recent negative stress, May 2015. 3. History of percutaneous transluminal coronary angioplasty and stent placement in 2014 to the left main left anterior descending. No current chest pain. 4. Hypertension, mildly elevated. 5. History of dyslipidemia. 6. Pleural effusion, status post thoracentesis. 7. Possible pneumonia. 8. Diabetes mellitus. 9. End-stage renal disease, on hemodialysis. RECOMMENDATIONS: -Tele -Increase metoprolol to improve BP and will add ACEI to improve SBP -Continue norvasc/hydralazine -Continue asa/plavix/statin -Consider abx's and f/u cx data -Follow volume status with HD for volume removal Problems: Consultation Date/Type/Reason Admit Date/Time Jun 13, 2016 at 14:48 Initial Consult Date 06/14/2016 Type of Consultation: Cardiology Reason for Consultation abnl ecg Referring Provider: EVA COX MD Exam/Review of Systems Vital Signs Vitals Vital Signs Date Time Temp Pulse Resp B/P Pulse Ox O2 Delivery O2 Flow Rate FiO2 06/21/16 12:22 69 06/21/16 11:38 98.5 20 192/80 94 06/21/16 09:30 Nasal Cannula 2.0 Intake and Output 06/20/16 06/20/16 06/21/16 15:00 23:00 07:00 Intake Total 700 ml 120 ml Output Total 4 ml 3 ml Balance 696 ml 117 ml Exam Review of Systems: CONSTITUTIONAL: No fevers, chills. PULMONARY: improved sob/mild cough ongoing CARDIOVASCULAR: No chest pain/palpitations GASTROINTESTINAL: No nausea/vomiting. GENITOURINARY: No hematuria/dysuria. MUSCULOSKELETAL: No myagias/arthalgias. PSYCHIATRIC: The patient denies depression. NEUROLOGIC: No weakness Constitutional: alert Psych: no complaints Head: normocephalic ENMT: mucosa pink and moist Neck: jvd (9 cm water), supple Respiratory: diminished breath sounds (at bases/B) Cardiovascular: regular rate and rhythm Gastrointestinal: non-tender, soft Musculoskeletal: muscle tone (normal) Extremities: edema (none) Neurological: other (No focal deficits) Results Result Diagram: 06/21/16 0630 06/21/16 0630 Results 24 hrs Laboratory Tests Test 06/20/16 17:20 06/20/16 21:37 06/21/16 02:09 06/21/16 06:30 Bedside Glucose 189 142 114 Anion Gap 16 Basophils # 0.0 Basophils % 0.7 Blood Morphology Comment Blood Urea Nitrogen 69 H Calcium Level 9.8 Carbon Dioxide Level 29 Chloride Level 98 Creatinine 8.85 H Eosinophils # 0.3 Eosinophils % 3.5 Glucose Level 64 #L Hematocrit 29.0 L Hemoglobin 9.8 L Lymphocytes # 1.2 Lymphocytes % 16.1 Mean Corpuscular Hemoglobin 33.6 H Mean Corpuscular Hemoglobin Concent 33.6 Mean Corpuscular Volume 99.9 Mean Platelet Volume 7.2 L Monocytes # 0.7 Monocytes % 10.1 Neutrophils # 5.1 Neutrophils % 69.6 Nucleated Red Blood Cells # 0.0 Nucleated Red Blood Cells % 0.0 Platelet Count 242 Potassium Level 4.7 Red Blood Count 2.91 L Red Cell Distribution Width 15.1 H Sodium Level 138 White Blood Count 7.4 Test 06/21/16 07:26 06/21/16 11:20 Bedside Glucose 71 124 Medications Medications Current Medications IV Flush (NS 10 ml) 10 ml PRN PRN IV FLUSH LINE; Start 06/13/16 at 19:00 Aspirin (Halfprin) 81 mg DAILY PO Last administered on 06/21/16 09:18; Admin Dose 81 MG; Start 06/14/16 at 09:00 Atorvastatin Calcium (Lipitor) 10 mg QHS PO Last administered on 06/20/16 21: 39; Admin Dose 10 MG; Start 06/14/16 at 21:00 Cholecalciferol (Vitamin D) 400 units DAILY PO Last administered on 06/21/16 09:19; Admin Dose 400 UNITS; Start 06/14/16 at 09:00 Clopidogrel Bisulfate (plaVIX) 75 mg DAILY PO Last administered on 06/21/16 09 :19; Admin Dose 75 MG; Start 06/14/16 at 09:00 Ferrous Sulfate (Ferrous Sulfate (Ec)) 325 mg BID PO Last administered on 09:17; Admin Dose 325 MG; Start 06/14/16 at 09:00 Metoprolol Tartrate (Lopressor) 25 mg BID PO Last administered on 06/21/16 09: 19; Admin Dose 25 MG; Start 06/14/16 at 09:00 Hydralazine HCl (Apresoline) 10 mg Q4H PRN IV for SBP more than 170 Last administered on 06/19/16 17:17; Admin Dose 10 MG; Start 06/14/16 at 00:00 Acetaminophen (Tylenol Tab) 500 mg Q4H PRN PO PAIN AND OR ELEVATED TEMP Last administered on 06/18/16 12:19; Admin Dose 500 MG; Start 06/14/16 at 00:00 Heparin Sodium (Porcine) (Heparin (5000 Units/0.5 ml)) 5,000 unit BID SC Last administered on 06/21/16 09:23; Admin Dose 5,000 UNIT; Start 06/14/16 at 09:00 Miscellaneous Information 1 ea NOTE XX Last administered on 06/18/16 07:57; Admin Dose 1 EA; Start 06/14/16 at 00:30 Glucose (Glutose) 15 gm Q15M PRN PO DECREASED GLUCOSE; Start 06/14/16 at 00:30 Glucose (Glutose) 22.5 gm Q15M PRN PO DECREASED GLUCOSE; Start 06/14/16 at 00: 30 Dextrose (D50w Syringe) 25 ml Q15M PRN IV DECREASED GLUCOSE; Start 06/14/16 at 00:30 Dextrose (D50w Syringe) 50 ml Q15M PRN IV DECREASED GLUCOSE; Start 06/14/16 at 00:30 Glucagon (Glucagen) 1 mg Q15M PRN IM DECREASED GLUCOSE; Start 06/14/16 at 00:30 Glucose (Glutose) 15 gm Q15M PRN BUCCAL DECREASED GLUCOSE; Start 06/14/16 at 00 :30 Diagnostic Test (Pha) (Accucheck) 1 ea 02 XX Last administered on 06/21/16 02: 11; Admin Dose 1 EA; Start 06/14/16 at 02:00 Famotidine (Pepcid) 20 mg DAILY PO Last administered on 06/21/16 09:19; Admin Dose 20 MG; Start 06/14/16 at 09:00 Amlodipine Besylate (Norvasc) 5 mg BID PO Last administered on 06/21/16 09:19 ; Admin Dose 5 MG; Start 06/14/16 at 13:30 Clonidine (Catapres) 0.2 mg Q8 PRN PO Systolic >160 Last administered on 18:16; Admin Dose 0.2 MG; Start 06/14/16 at 13:00 Promethazine HCl/ Codeine (Phenergan/ Codeine) 5 ml Q4H PRN PO COUGH Last administered on 06/21/16 00:13; Admin Dose 5 ML; Start 06/15/16 at 00:00 Insulin Glargine (Lantus) 14 unit QHS SC Last administered on 06/20/16 23:18; Admin Dose 14 UNIT; Start 06/15/16 at 21:00 Pantoprazole (Protonix Tab) 40 mg DAILY@06 PO Last administered on 06/21/16 06 :45; Admin Dose 40 MG; Start 06/16/16 at 06:00 Diphenhydramine HCl (Benadryl) 25 mg HS PRN PO INSOMNIA Last administered on 22:43; Admin Dose 25 MG; Start 06/15/16 at 21:30 Hydralazine HCl (Apresoline) 100 mg Q8 PO Last administered on 06/21/16 06:46 ; Admin Dose 100 MG; Start 06/19/16 at 13:00 SHERITA SCOTT Jun 21, 2016 13:04
--- NOTE | 2016-06-21 17:13 | PN ---
Date/Time of Note Date/Time of Note DATE: 06/21/16 TIME: 17:12 Assessment/Plan Lines/Catheters IV Catheter Type (from Nrs): PICC Line Jonas in Place (from Nrsg): No Assessment/Plan Chief Complaint/Hosp Course IMPRESSION: Bilateral pleural effusions status post thoracentesis with much improvement. CXR 1. Cardiomegaly. 2. Perihilar and basilar infiltrates associated with bilateral pleural effusions. Associated compressive atelectasis in the bases of the lungs. 3. Status post median sternotomy for thoracic surgery. 4. Dual chamber cardiac pacemaker. There are 5 atherosclerosis of the aortic arch. At this time, would continue monitoring the chest x-ray. If effusions recur and they are loculated, patient would benefit from a VATS decortication. Will discuss with the referring physicians. Problems: Subjective 24 Hr Interval Summary Constitutional: improved Pain Control: mild Exam/Review of Systems Vital Signs Vitals Vital Signs Date Time Temp Pulse Resp B/P Pulse Ox O2 Delivery O2 Flow Rate FiO2 06/21/16 16:53 69 06/21/16 16:07 20 06/21/16 15:16 98.2 150/68 95 06/21/16 09:30 Nasal Cannula 2.0 Intake and Output 06/20/16 06/20/16 06/21/16 15:00 23:00 07:00 Intake Total 700 ml 120 ml Output Total 4 ml 3 ml Balance 696 ml 117 ml Exam ENMT: mucosa pink and moist, nl external ears & nose, nl lips & teeth, nl nasal mucosa & septum Neck: non-tender, supple Respiratory: clear to auscultation, normal air movement Cardiovascular: nl pulses, regular rate and rhythm Results Result Diagram: 06/21/16 0630 06/21/16 0630 LILIA FELIZ MD Jun 21, 2016 17:13
[2016-06-21] MEDS: BENAZEPRIL 20 MG TAB PO SCH (21:29)
[2016-06-21] MEDS: ATORVASTATIN 10 MG TAB PO SCH (21:30)
[2016-06-21] MEDS: INSULIN GLARGINE [LANtus] 3 ML PEN SC SCH (21:45)
[2016-06-22] VITALS (12 sets, daily range): BP systolic 147–169; BP diastolic 56–73; PULSE 69; RESP 16–71
[2016-06-22] MEDS: ACCU-CHEK XX SCH ×5 (02:00→20:13)
[2016-06-22] MEDS: PANTOPRAZOLE (EC) 40 MG TAB PO SCH (05:23)
--- NOTE | 2016-06-22 07:31 | RADRPT ---
PROCEDURE: Ultrasound examination of the left upper extremity veins with Doppler. CLINICAL INDICATION: Pain and swelling. TECHNIQUE: Multiple sonographic images of the left upper extremity veins were performed with villar scale and color Doppler. COMPARISON: None. FINDINGS: The left internal jugular, subclavian, axillary, brachial, basilic, cephalic, radial and ulnar veins demonstrate normal color flow, waveforms and compression. There is no evidence of deep venous thro mbosis. IMPRESSION: No evidence of deep venous thrombosis within the left upper extremity veins. .Po Hoyos MD, MD Date Time Electronically viewed and signed by .Po Hoyos MD, on 06/22/2016 07:31 .T/
[2016-06-22] MEDS: INSULIN ASPART [NOVOLOG] 3 ML PEN SC SCH ×4 (07:55→19:58)
[2016-06-22] MEDS: SEVELAMER CARBONATE 0.8 GM PKT PO SCH ×3 (08:42→17:31)
[2016-06-22] MEDS: CALCIUM ACETATE 667 MG CAP PO SCH ×3 (08:42→17:33)
[2016-06-22] MEDS: CHOLECALCIFEROL 400 UNITS TAB PO SCH (08:42)
[2016-06-22] MEDS: AMLODIPINE 5 MG TAB PO SCH ×2 (08:43→20:13)
[2016-06-22] MEDS: FERROUS SULFATE (EC) 325 MG TAB PO SCH ×2 (08:43→19:53)
[2016-06-22] MEDS: METOPROLOL 25 MG TAB PO SCH ×2 (08:43→19:53)
[2016-06-22] MEDS: ASPIRIN (EC) 81 MG TAB PO SCH (08:43)
[2016-06-22] MEDS: CLOPIDOGREL 75 MG TAB PO SCH (08:44)
[2016-06-22] MEDS: BENAZEPRIL 20 MG TAB PO SCH (08:44)
[2016-06-22] MEDS: HEPARIN 5,000 UNIT/0.5 ML SYG SC SCH ×2 (08:45→20:13)
[2016-06-22] MEDS: FAMOTIDINE 20 MG TAB PO SCH (08:47)
--- NOTE | 2016-06-22 11:21 | PN ---
Date/Time of Note Date/Time of Note DATE: 06/22/16 TIME: 11:20 Assessment/Plan VTE Prophylaxis VTE Prophylaxis Intervention: other Lines/Catheters IV [facility] Type [facility]from [facility] PICC Line Central line still needed: Yes Urinary Cath still in place: No Assessment/Plan Chief Complaint/Hosp Course - Right pleural effusion, status post thoracentesis. Dr. Dale is following in pulmonology consultation. - End-stage renal disease, continue hemodialysis. Dr. Saunders is following in nephrology consultation. - Diabetes mellitus type 2, continue Lantus and NovoLog - Hypertension. Dr. De Santiago is following and cardiology consultation. - Coronary artery disease, status post coronary artery bypass graft. Continue aspirin and Plavix. - Permanent pacemaker. No acute issues. - Dyslipidemia. Continue Lipitor. Continue heparin for deep venous thrombosis prophylaxis and Protonix for peptic ulcer disease prophylaxis. Problems: Subjective 24 Hr Interval Summary Free Text/Dictation Patient has no complaints Exam/Review of Systems Vital Signs Vitals Vital Signs Date Time Temp Pulse Resp B/P Pulse Ox O2 Delivery O2 Flow Rate FiO2 06/22/16 11:16 Nasal Cannula 2.0 06/22/16 11:15 98.5 70 20 153/61 92 Intake and Output 06/21/16 06/21/16 06/22/16 15:00 23:00 07:00 Intake Total 1220 ml 800 ml Output Total 7503 ml 4 ml Balance -6283 ml 796 ml Exam Constitutional: well developed Head: atraumatic, normocephalic Neck: supple Respiratory: clear to auscultation Cardiovascular: regular rate and rhythm Gastrointestinal: non-tender, soft Results Result Diagram: 06/21/16 0630 06/21/16 0630 Results 24 hrs Laboratory Tests Test 06/21/16 17:13 06/21/16 20:29 06/22/16 04:45 06/22/16 07:40 Bedside Glucose 136 264 H 154 95 Medications Medications Current Medications IV Flush (NS 10 ml) 10 ml PRN PRN IV FLUSH LINE; Start 06/13/16 at 19:00 Aspirin (Halfprin) 81 mg DAILY PO Last administered on 06/22/16 08:43; Admin Dose 81 MG; Start 06/14/16 at 09:00 Atorvastatin Calcium (Lipitor) 10 mg QHS PO Last administered on 06/21/16 21: 30; Admin Dose 10 MG; Start 06/14/16 at 21:00 Cholecalciferol (Vitamin D) 400 units DAILY PO Last administered on 06/22/16 08:42; Admin Dose 400 UNITS; Start 06/14/16 at 09:00 Clopidogrel Bisulfate (plaVIX) 75 mg DAILY PO Last administered on 06/22/16 08 :44; Admin Dose 75 MG; Start 06/14/16 at 09:00 Ferrous Sulfate (Ferrous Sulfate (Ec)) 325 mg BID PO Last administered on 08:43; Admin Dose 325 MG; Start 06/14/16 at 09:00 Metoprolol Tartrate (Lopressor) 25 mg BID PO Last administered on 06/22/16 08: 43; Admin Dose 25 MG; Start 06/14/16 at 09:00 Hydralazine HCl (Apresoline) 10 mg Q4H PRN IV for SBP more than 170 Last administered on 06/19/16 17:17; Admin Dose 10 MG; Start 06/14/16 at 00:00 Acetaminophen (Tylenol Tab) 500 mg Q4H PRN PO PAIN AND OR ELEVATED TEMP Last administered on 06/18/16 12:19; Admin Dose 500 MG; Start 06/14/16 at 00:00 Heparin Sodium (Porcine) (Heparin (5000 Units/0.5 ml)) 5,000 unit BID SC Last administered on 06/21/16 09:23; Admin Dose 5,000 UNIT; Start 06/14/16 at 09:00 Miscellaneous Information 1 ea NOTE XX Last administered on 06/18/16 07:57; Admin Dose 1 EA; Start 06/14/16 at 00:30 Glucose (Glutose) 15 gm Q15M PRN PO DECREASED GLUCOSE; Start 06/14/16 at 00:30 Glucose (Glutose) 22.5 gm Q15M PRN PO DECREASED GLUCOSE; Start 06/14/16 at 00: 30 Dextrose (D50w Syringe) 25 ml Q15M PRN IV DECREASED GLUCOSE; Start 06/14/16 at 00:30 Dextrose (D50w Syringe) 50 ml Q15M PRN IV DECREASED GLUCOSE; Start 06/14/16 at 00:30 Glucagon (Glucagen) 1 mg Q15M PRN IM DECREASED GLUCOSE; Start 06/14/16 at 00:30 Glucose (Glutose) 15 gm Q15M PRN BUCCAL DECREASED GLUCOSE; Start 06/14/16 at 00 :30 Diagnostic Test (Pha) (Accucheck) 1 ea 02 XX Last administered on 06/22/16 02: 00; Admin Dose 1 EA; Start 06/14/16 at 02:00 Famotidine (Pepcid) 20 mg DAILY PO Last administered on 06/22/16 08:47; Admin Dose 20 MG; Start 06/14/16 at 09:00 Amlodipine Besylate (Norvasc) 5 mg BID PO Last administered on 06/22/16 08:43 ; Admin Dose 5 MG; Start 06/14/16 at 13:30 Clonidine (Catapres) 0.2 mg Q8 PRN PO Systolic >160 Last administered on 18:16; Admin Dose 0.2 MG; Start 06/14/16 at 13:00 Promethazine HCl/ Codeine (Phenergan/ Codeine) 5 ml Q4H PRN PO COUGH Last administered on 06/21/16 18:04; Admin Dose 5 ML; Start 06/15/16 at 00:00 Insulin Glargine (Lantus) 14 unit QHS SC Last administered on 06/21/16 21:45; Admin Dose 14 UNIT; Start 06/15/16 at 21:00 Pantoprazole (Protonix Tab) 40 mg DAILY@06 PO Last administered on 06/22/16 05 :23; Admin Dose 40 MG; Start 06/16/16 at 06:00 Diphenhydramine HCl (Benadryl) 25 mg HS PRN PO INSOMNIA Last administered on 22:43; Admin Dose 25 MG; Start 06/15/16 at 21:30 Hydralazine HCl (Apresoline) 100 mg Q8 PO Last administered on 06/22/16 05:23 ; Admin Dose 100 MG; Start 06/19/16 at 13:00 Benazepril HCl (Lotensin) 20 mg BID PO Last administered on 06/22/16 08:44; Admin Dose 20 MG; Start 06/21/16 at 21:00 HELEN SHARP 19, 2017 11:20
[2016-06-22] MEDS: ACETAMINOPHEN 500 MG TAB PO PRN (11:29)
--- NOTE | 2016-06-22 11:58 | CONS ---
Date/Time of Note Date/Time of Note DATE: 06/22/16 TIME: 11:55 Assessment/Plan Assessment/Plan Chief Complaint/Hosp Course IMPRESSION: 1. Abnormal electrocardiogram, assess for acute coronary syndrome.-negative troponin x 3 2. History of recent negative stress, May 2015. 3. History of percutaneous transluminal coronary angioplasty and stent placement in 2014 to the left main left anterior descending. No current chest pain. 4. Hypertension, mildly elevated. 5. History of dyslipidemia. 6. Pleural effusion, status post thoracentesis. 7. Possible pneumonia. 8. Diabetes mellitus. 9. End-stage renal disease, on hemodialysis. RECOMMENDATIONS: -Tele -Continue metoprolol and increase benazepril slightly to improve SBP control -Continue norvasc/hydralazine -Continue asa/plavix/statin -Consider abx's and f/u cx data -Follow volume status with HD for volume removal Problems: Consultation Date/Type/Reason Admit Date/Time Jun 13, 2016 at 14:48 Initial Consult Date 06/14/2016 Type of Consultation: Cardiology Reason for Consultation abnl ecg Referring Provider: EVA COX MD Exam/Review of Systems Vital Signs Vitals Vital Signs Date Time Temp Pulse Resp B/P Pulse Ox O2 Delivery O2 Flow Rate FiO2 06/22/16 11:16 Nasal Cannula 2.0 06/22/16 11:15 98.5 70 20 153/61 92 Intake and Output 06/21/16 06/21/16 06/22/16 15:00 23:00 07:00 Intake Total 1220 ml 800 ml Output Total 7503 ml 4 ml Balance -6283 ml 796 ml Exam Review of Systems: CONSTITUTIONAL: No fevers, chills. PULMONARY: No sob CARDIOVASCULAR: No chest pain/palpitations GASTROINTESTINAL: No nausea/vomiting. GENITOURINARY: No hematuria/dysuria. MUSCULOSKELETAL: No myagias/arthalgias. PSYCHIATRIC: The patient denies depression. NEUROLOGIC: No weakness Constitutional: alert Psych: no complaints ENMT: mucosa pink and moist Neck: jvd (8 cm water), supple Respiratory: diminished breath sounds (at bases/B) Cardiovascular: regular rate and rhythm Gastrointestinal: non-tender, soft Musculoskeletal: muscle tone (normal) Extremities: edema (none) Neurological: other (No focal deficits) Results Result Diagram: 2/18/17 0630 2/18/17 0630 Results 24 hrs Laboratory Tests Test 06/21/16 17:13 06/21/16 20:29 06/22/16 04:45 06/22/16 07:40 Bedside Glucose 136 264 H 154 95 Test 06/22/16 11:28 Bedside Glucose 125 Medications Medications Current Medications IV Flush (NS 10 ml) 10 ml PRN PRN IV FLUSH LINE; Start 06/13/16 at 19:00 Aspirin (Halfprin) 81 mg DAILY PO Last administered on 06/22/16 08:43; Admin Dose 81 MG; Start 06/14/16 at 09:00 Atorvastatin Calcium (Lipitor) 10 mg QHS PO Last administered on 06/21/16 21: 30; Admin Dose 10 MG; Start 06/14/16 at 21:00 Cholecalciferol (Vitamin D) 400 units DAILY PO Last administered on 06/22/16 08:42; Admin Dose 400 UNITS; Start 06/14/16 at 09:00 Clopidogrel Bisulfate (plaVIX) 75 mg DAILY PO Last administered on 06/22/16 08 :44; Admin Dose 75 MG; Start 06/14/16 at 09:00 Ferrous Sulfate (Ferrous Sulfate (Ec)) 325 mg BID PO Last administered on 08:43; Admin Dose 325 MG; Start 06/14/16 at 09:00 Metoprolol Tartrate (Lopressor) 25 mg BID PO Last administered on 06/22/16 08: 43; Admin Dose 25 MG; Start 06/14/16 at 09:00 Hydralazine HCl (Apresoline) 10 mg Q4H PRN IV for SBP more than 170 Last administered on 06/19/16 17:17; Admin Dose 10 MG; Start 06/14/16 at 00:00 Acetaminophen (Tylenol Tab) 500 mg Q4H PRN PO PAIN AND OR ELEVATED TEMP Last administered on 06/22/16 11:29; Admin Dose 500 MG; Start 06/14/16 at 00:00 Heparin Sodium (Porcine) (Heparin (5000 Units/0.5 ml)) 5,000 unit BID SC Last administered on 06/21/16 09:23; Admin Dose 5,000 UNIT; Start 06/14/16 at 09:00 Miscellaneous Information 1 ea NOTE XX Last administered on 06/18/16 07:57; Admin Dose 1 EA; Start 06/14/16 at 00:30 Glucose (Glutose) 15 gm Q15M PRN PO DECREASED GLUCOSE; Start 06/14/16 at 00:30 Glucose (Glutose) 22.5 gm Q15M PRN PO DECREASED GLUCOSE; Start 06/14/16 at 00: 30 Dextrose (D50w Syringe) 25 ml Q15M PRN IV DECREASED GLUCOSE; Start 06/14/16 at 00:30 Dextrose (D50w Syringe) 50 ml Q15M PRN IV DECREASED GLUCOSE; Start 06/14/16 at 00:30 Glucagon (Glucagen) 1 mg Q15M PRN IM DECREASED GLUCOSE; Start 06/14/16 at 00:30 Glucose (Glutose) 15 gm Q15M PRN BUCCAL DECREASED GLUCOSE; Start 06/14/16 at 00 :30 Diagnostic Test (Pha) (Accucheck) 1 ea 02 XX Last administered on 06/22/16 02: 00; Admin Dose 1 EA; Start 06/14/16 at 02:00 Famotidine (Pepcid) 20 mg DAILY PO Last administered on 06/22/16 08:47; Admin Dose 20 MG; Start 06/14/16 at 09:00 Amlodipine Besylate (Norvasc) 5 mg BID PO Last administered on 06/22/16 08:43 ; Admin Dose 5 MG; Start 06/14/16 at 13:30 Clonidine (Catapres) 0.2 mg Q8 PRN PO Systolic >160 Last administered on 18:16; Admin Dose 0.2 MG; Start 06/14/16 at 13:00 Promethazine HCl/ Codeine (Phenergan/ Codeine) 5 ml Q4H PRN PO COUGH Last administered on 06/21/16 18:04; Admin Dose 5 ML; Start 06/15/16 at 00:00 Insulin Glargine (Lantus) 14 unit QHS SC Last administered on 06/21/16 21:45; Admin Dose 14 UNIT; Start 06/15/16 at 21:00 Pantoprazole (Protonix Tab) 40 mg DAILY@06 PO Last administered on 06/22/16 05 :23; Admin Dose 40 MG; Start 06/16/16 at 06:00 Diphenhydramine HCl (Benadryl) 25 mg HS PRN PO INSOMNIA Last administered on 22:43; Admin Dose 25 MG; Start 06/15/16 at 21:30 Hydralazine HCl (Apresoline) 100 mg Q8 PO Last administered on 06/22/16 05:23 ; Admin Dose 100 MG; Start 06/19/16 at 13:00 Benazepril HCl (Lotensin) 20 mg BID PO Last administered on 06/22/16 08:44; Admin Dose 20 MG; Start 06/21/16 at 21:00 Bisacodyl (Dulcolax) 10 mg DAILY PRN PO CONSTIPATION; Start 06/22/16 at 11:30 SHERITA SCOTT Jun 22, 2016 11:58
--- NOTE | 2016-06-22 16:42 | CONS ---
Date/Time of Note Date/Time of Note DATE: 06/22/16 TIME: 16:41 Assessment/Plan Assessment/Plan Chief Complaint/Hosp Course ESRD HTN PNEUMONIA PLEURAL EFFUSION PLAN PER CARDIO NON COMPLIANCE W HD hd refused hd 3 x wk Problems: Consultation Date/Type/Reason Admit Date/Time Jun 13, 2016 at 14:48 Type of Consultation: renal Referring Provider: EVA COX MD 24 HR Interval Summary Constitutional: no complaints Exam/Review of Systems Vital Signs Vitals Vital Signs Date Time Temp Pulse Resp B/P Pulse Ox O2 Delivery O2 Flow Rate FiO2 06/22/16 15:12 97.7 70 20 153/67 92 06/22/16 11:16 Nasal Cannula 2.0 Intake and Output 06/21/16 06/21/16 06/22/16 15:00 23:00 07:00 Intake Total 1220 ml 800 ml Output Total 7503 ml 4 ml Balance -6283 ml 796 ml Exam Neck: supple Respiratory: clear to auscultation Gastrointestinal: soft Results Result Diagram: 06/21/16 0630 06/21/16 0630 Results 24 hrs Laboratory Tests Test 06/21/16 17:13 06/21/16 20:29 06/22/16 04:45 06/22/16 07:40 Bedside Glucose 136 264 H 154 95 Test 06/22/16 11:28 Bedside Glucose 125 Medications Medications Current Medications IV Flush (NS 10 ml) 10 ml PRN PRN IV FLUSH LINE; Start 06/13/16 at 19:00 Aspirin (Halfprin) 81 mg DAILY PO Last administered on 06/22/16 08:43; Admin Dose 81 MG; Start 06/14/16 at 09:00 Atorvastatin Calcium (Lipitor) 10 mg QHS PO Last administered on 06/21/16 21: 30; Admin Dose 10 MG; Start 06/14/16 at 21:00 Cholecalciferol (Vitamin D) 400 units DAILY PO Last administered on 06/22/16 08:42; Admin Dose 400 UNITS; Start 06/14/16 at 09:00 Clopidogrel Bisulfate (plaVIX) 75 mg DAILY PO Last administered on 06/22/16 08 :44; Admin Dose 75 MG; Start 06/14/16 at 09:00 Ferrous Sulfate (Ferrous Sulfate (Ec)) 325 mg BID PO Last administered on 08:43; Admin Dose 325 MG; Start 06/14/16 at 09:00 Metoprolol Tartrate (Lopressor) 25 mg BID PO Last administered on 06/22/16 08: 43; Admin Dose 25 MG; Start 06/14/16 at 09:00 Hydralazine HCl (Apresoline) 10 mg Q4H PRN IV for SBP more than 170 Last administered on 06/19/16 17:17; Admin Dose 10 MG; Start 06/14/16 at 00:00 Acetaminophen (Tylenol Tab) 500 mg Q4H PRN PO PAIN AND OR ELEVATED TEMP Last administered on 06/22/16 11:29; Admin Dose 500 MG; Start 06/14/16 at 00:00 Heparin Sodium (Porcine) (Heparin (5000 Units/0.5 ml)) 5,000 unit BID SC Last administered on 06/21/16 09:23; Admin Dose 5,000 UNIT; Start 06/14/16 at 09:00 Miscellaneous Information 1 ea NOTE XX Last administered on 06/18/16 07:57; Admin Dose 1 EA; Start 06/14/16 at 00:30 Glucose (Glutose) 15 gm Q15M PRN PO DECREASED GLUCOSE; Start 06/14/16 at 00:30 Glucose (Glutose) 22.5 gm Q15M PRN PO DECREASED GLUCOSE; Start 06/14/16 at 00: 30 Dextrose (D50w Syringe) 25 ml Q15M PRN IV DECREASED GLUCOSE; Start 06/14/16 at 00:30 Dextrose (D50w Syringe) 50 ml Q15M PRN IV DECREASED GLUCOSE; Start 06/14/16 at 00:30 Glucagon (Glucagen) 1 mg Q15M PRN IM DECREASED GLUCOSE; Start 06/14/16 at 00:30 Glucose (Glutose) 15 gm Q15M PRN BUCCAL DECREASED GLUCOSE; Start 06/14/16 at 00 :30 Diagnostic Test (Pha) (Accucheck) 1 ea 02 XX Last administered on 06/22/16 02: 00; Admin Dose 1 EA; Start 06/14/16 at 02:00 Famotidine (Pepcid) 20 mg DAILY PO Last administered on 06/22/16 08:47; Admin Dose 20 MG; Start 06/14/16 at 09:00 Amlodipine Besylate (Norvasc) 5 mg BID PO Last administered on 06/22/16 08:43 ; Admin Dose 5 MG; Start 06/14/16 at 13:30 Clonidine (Catapres) 0.2 mg Q8 PRN PO Systolic >160 Last administered on 18:16; Admin Dose 0.2 MG; Start 06/14/16 at 13:00 Promethazine HCl/ Codeine (Phenergan/ Codeine) 5 ml Q4H PRN PO COUGH Last administered on 06/21/16 18:04; Admin Dose 5 ML; Start 06/15/16 at 00:00 Insulin Glargine (Lantus) 14 unit QHS SC Last administered on 06/21/16 21:45; Admin Dose 14 UNIT; Start 06/15/16 at 21:00 Pantoprazole (Protonix Tab) 40 mg DAILY@06 PO Last administered on 06/22/16 05 :23; Admin Dose 40 MG; Start 06/16/16 at 06:00 Diphenhydramine HCl (Benadryl) 25 mg HS PRN PO INSOMNIA Last administered on 22:43; Admin Dose 25 MG; Start 06/15/16 at 21:30 Hydralazine HCl (Apresoline) 100 mg Q8 PO Last administered on 06/22/16 15:07 ; Admin Dose 100 MG; Start 06/19/16 at 13:00 Bisacodyl (Dulcolax) 10 mg DAILY PRN PO CONSTIPATION; Start 06/22/16 at 11:30 Benazepril HCl (Lotensin) 30 mg BID PO ; Start 06/22/16 at 21:00 PAOLA MOODY MD Jun 22, 2016 16:41
[2016-06-22] MEDS: ATORVASTATIN 10 MG TAB PO SCH (19:53)
[2016-06-22] MEDS: LEVALBUTEROL (HFA) 15 GM INHALER INH SCH ×2 (19:54→19:55)
[2016-06-22] MEDS: INSULIN GLARGINE [LANtus] 3 ML PEN SC SCH (20:03)
[2016-06-22] MEDS: BENAZEPRIL 10 MG TAB PO SCH (20:13)
[2016-06-23] VITALS (16 sets, daily range): BP systolic 105–166; BP diastolic 53–76; PULSE 69–70; RESP 16–20
[2016-06-23] MEDS: LEVALBUTEROL (HFA) 15 GM INHALER INH SCH (00:01)
[2016-06-23] MEDS: ACCU-CHEK XX SCH ×5 (02:29→20:34)
[2016-06-23] MEDS: PANTOPRAZOLE (EC) 40 MG TAB PO SCH (05:20)
[2016-06-23 06:44] LABS: POTASSIUM 4.8 mmol/L (3.5-5.1)
[2016-06-23 06:47] LABS: CALCIUM 9.4 mg/dl (8.4-10.2); CREATININE 7.66 mg/dl (0.61-1.24)
[2016-06-23] MEDS: CALCIUM ACETATE 667 MG CAP PO SCH ×3 (07:39→17:46)
[2016-06-23] MEDS: SEVELAMER CARBONATE 0.8 GM PKT PO SCH ×3 (07:39→17:47)
[2016-06-23] MEDS: INSULIN ASPART [NOVOLOG] 3 ML PEN SC SCH ×4 (07:39→20:34)
[2016-06-23] MEDS: HEPARIN 5,000 UNIT/0.5 ML SYG SC SCH ×2 (09:00→20:30)
[2016-06-23] MEDS: CLOPIDOGREL 75 MG TAB PO SCH (09:10)
[2016-06-23] MEDS: CHOLECALCIFEROL 400 UNITS TAB PO SCH (09:10)
[2016-06-23] MEDS: FAMOTIDINE 20 MG TAB PO SCH (09:10)
[2016-06-23] MEDS: ASPIRIN (EC) 81 MG TAB PO SCH (09:10)
[2016-06-23] MEDS: FERROUS SULFATE (EC) 325 MG TAB PO SCH ×2 (09:10→20:27)
[2016-06-23] MEDS: METOPROLOL 25 MG TAB PO SCH ×2 (09:13→20:28)
[2016-06-23] MEDS: BENAZEPRIL 10 MG TAB PO SCH (09:14)
[2016-06-23] MEDS: AMLODIPINE 5 MG TAB PO SCH ×2 (09:14→20:27)
--- NOTE | 2016-06-23 12:29 | CONS ---
Date/Time of Note Date/Time of Note DATE: 06/23/16 TIME: 12:27 Assessment/Plan Assessment/Plan Chief Complaint/Hosp Course IMPRESSION: 1. Abnormal electrocardiogram, assess for acute coronary syndrome.-negative troponin x 3 2. History of recent negative stress, May 2015. 3. History of percutaneous transluminal coronary angioplasty and stent placement in 2014 to the left main left anterior descending. No current chest pain. 4. Hypertension, mildly elevated. 5. History of dyslipidemia. 6. Pleural effusion, status post thoracentesis. 7. Possible pneumonia/cough-improved 8. Diabetes mellitus. 9. End-stage renal disease, on hemodialysis. RECOMMENDATIONS: -Tele -Continue metoprolol and maximize dose of benazepril to improve SBP control -Continue norvasc/hydralazine -Continue asa/plavix/statin -Consider abx's and f/u cx data -Follow volume status with HD for volume removal -D/C planning Problems: Consultation Date/Type/Reason Admit Date/Time Jun 13, 2016 at 14:48 Initial Consult Date 06/14/2016 Type of Consultation: Cardiology Reason for Consultation abnl ecg Referring Provider: EVA COX MD Exam/Review of Systems Vital Signs Vitals Vital Signs Date Time Temp Pulse Resp B/P Pulse Ox O2 Delivery O2 Flow Rate FiO2 06/23/16 11:21 97.5 70 18 166/76 97 155/70 06/23/16 08:00 Nasal Cannula 06/23/16 05:43 2.0 Intake and Output 06/22/16 06/22/16 06/23/16 15:00 23:00 07:00 Intake Total 720 ml 250 ml Balance 720 ml 250 ml Exam Review of Systems: CONSTITUTIONAL: No fevers, chills. PULMONARY: No sob CARDIOVASCULAR: No chest pain/palpitations GASTROINTESTINAL: No nausea/vomiting. GENITOURINARY: No hematuria/dysuria. MUSCULOSKELETAL: No myagias/arthalgias. PSYCHIATRIC: The patient denies depression. NEUROLOGIC: No weakness Constitutional: alert, oriented Psych: no complaints Head: normocephalic ENMT: mucosa pink and moist Neck: jvd (8 cm water), supple Respiratory: clear to auscultation Cardiovascular: regular rate and rhythm Gastrointestinal: non-tender, soft Musculoskeletal: muscle tone (normal) Extremities: edema (noen) Neurological: other (No focal deficits) Results Result Diagram: 06/21/16 0630 06/23/16 0541 Results 24 hrs Laboratory Tests Test 06/22/16 17:32 06/22/16 19:56 06/23/16 02:22 06/23/16 02:59 Bedside Glucose 150 128 63 L 104 Test 06/23/16 05:41 06/23/16 07:37 06/23/16 07:56 06/23/16 08:22 Anion Gap 14 Blood Urea Nitrogen 57 H Calcium Level 9.4 Carbon Dioxide Level 31 Chloride Level 98 Creatinine 7.66 H Glucose Level 69 L Potassium Level 4.8 Sodium Level 138 Bedside Glucose 68 L 102 Lab Scanned Report REFERENCE LAB Test 06/23/16 12:01 Bedside Glucose 132 Medications Medications Current Medications IV Flush (NS 10 ml) 10 ml PRN PRN IV FLUSH LINE; Start 06/13/16 at 19:00 Aspirin (Halfprin) 81 mg DAILY PO Last administered on 06/23/16 09:10; Admin Dose 81 MG; Start 06/14/16 at 09:00 Atorvastatin Calcium (Lipitor) 10 mg QHS PO Last administered on 06/22/16 19: 53; Admin Dose 10 MG; Start 06/14/16 at 21:00 Cholecalciferol (Vitamin D) 400 units DAILY PO Last administered on 06/23/16 09:10; Admin Dose 400 UNITS; Start 06/14/16 at 09:00 Clopidogrel Bisulfate (plaVIX) 75 mg DAILY PO Last administered on 06/23/16 09 :10; Admin Dose 75 MG; Start 06/14/16 at 09:00 Ferrous Sulfate (Ferrous Sulfate (Ec)) 325 mg BID PO Last administered on 09:10; Admin Dose 325 MG; Start 06/14/16 at 09:00 Metoprolol Tartrate (Lopressor) 25 mg BID PO Last administered on 06/23/16 09: 13; Admin Dose 25 MG; Start 06/14/16 at 09:00 Hydralazine HCl (Apresoline) 10 mg Q4H PRN IV for SBP more than 170 Last administered on 06/19/16 17:17; Admin Dose 10 MG; Start 06/14/16 at 00:00 Acetaminophen (Tylenol Tab) 500 mg Q4H PRN PO PAIN AND OR ELEVATED TEMP Last administered on 06/22/16 11:29; Admin Dose 500 MG; Start 06/14/16 at 00:00 Heparin Sodium (Porcine) (Heparin (5000 Units/0.5 ml)) 5,000 unit BID SC Last administered on 06/21/16 09:23; Admin Dose 5,000 UNIT; Start 06/14/16 at 09:00 Miscellaneous Information 1 ea NOTE XX Last administered on 06/18/16 07:57; Admin Dose 1 EA; Start 06/14/16 at 00:30 Glucose (Glutose) 15 gm Q15M PRN PO DECREASED GLUCOSE; Start 06/14/16 at 00:30 Glucose (Glutose) 22.5 gm Q15M PRN PO DECREASED GLUCOSE; Start 06/14/16 at 00: 30 Dextrose (D50w Syringe) 25 ml Q15M PRN IV DECREASED GLUCOSE; Start 06/14/16 at 00:30 Dextrose (D50w Syringe) 50 ml Q15M PRN IV DECREASED GLUCOSE; Start 06/14/16 at 00:30 Glucagon (Glucagen) 1 mg Q15M PRN IM DECREASED GLUCOSE; Start 06/14/16 at 00:30 Glucose (Glutose) 15 gm Q15M PRN BUCCAL DECREASED GLUCOSE; Start 06/14/16 at 00 :30 Diagnostic Test (Pha) (Accucheck) 1 ea 02 XX Last administered on 06/23/16 02: 29; Admin Dose 1 EA; Start 06/14/16 at 02:00 Famotidine (Pepcid) 20 mg DAILY PO Last administered on 06/23/16 09:10; Admin Dose 20 MG; Start 06/14/16 at 09:00 Amlodipine Besylate (Norvasc) 5 mg BID PO Last administered on 06/23/16 09:14 ; Admin Dose 5 MG; Start 06/14/16 at 13:30 Clonidine (Catapres) 0.2 mg Q8 PRN PO Systolic >160 Last administered on 00:01; Admin Dose 0.2 MG; Start 06/14/16 at 13:00 Promethazine HCl/ Codeine (Phenergan/ Codeine) 5 ml Q4H PRN PO COUGH Last administered on 06/21/16 18:04; Admin Dose 5 ML; Start 06/15/16 at 00:00 Insulin Glargine (Lantus) 14 unit QHS SC Last administered on 06/22/16 20:03; Admin Dose 14 UNIT; Start 06/15/16 at 21:00 Pantoprazole (Protonix Tab) 40 mg DAILY@06 PO Last administered on 06/23/16 05 :20; Admin Dose 40 MG; Start 06/16/16 at 06:00 Diphenhydramine HCl (Benadryl) 25 mg HS PRN PO INSOMNIA Last administered on 22:43; Admin Dose 25 MG; Start 06/15/16 at 21:30 Hydralazine HCl (Apresoline) 100 mg Q8 PO Last administered on 06/23/16 05:20 ; Admin Dose 100 MG; Start 06/19/16 at 13:00 Bisacodyl (Dulcolax) 10 mg DAILY PRN PO CONSTIPATION; Start 06/22/16 at 11:30 Benazepril HCl (Lotensin) 30 mg BID PO Last administered on 06/23/16 09:14; Admin Dose 30 MG; Start 06/22/16 at 21:00 SHERITA SCOTT Jun 23, 2016 12:29
[2016-06-23 17:11] LABS: TB-NIL 5.09 IU/mL
--- NOTE | 2016-06-23 17:33 | PN ---
Date/Time of Note Date/Time of Note DATE: 06/23/16 TIME: 17:28 Assessment/Plan VTE Prophylaxis VTE Prophylaxis Intervention: SCD's Lines/Catheters IV Catheter Type (from [facility]): PICC Line Central line still needed: Yes Urinary Cath still in place: No Assessment/Plan Chief Complaint/Hosp Course Assessment and plan - Recurrent pleural effusions. - Right pleural effusion, status post thoracentesis. Dr. Dale is following in pulmonology consultation. - End-stage renal disease, continue hemodialysis. Dr. Saunders is following in nephrology consultation. - Diabetes mellitus type 2, continue Lantus and NovoLog - Hypertension. Dr. De Santiago is following and cardiology consultation. - Coronary artery disease, status post coronary artery bypass graft. Continue aspirin and Plavix. - Permanent pacemaker. No acute issues. - Dyslipidemia. Continue Lipitor. 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 Continue heparin for deep venous thrombosis prophylaxis and Protonix for peptic ulcer disease prophylaxis. Further recommendations based on clinical course. Plan of care discussed with Dr. Price. Problems: Subjective 24 Hr Interval Summary Free Text/Dictation Patient's complains of shortness of breath on exertion and off supplemental oxygen, denies chest pain. S/p HD yesterday. Exam/Review of Systems Vital Signs Vitals Vital Signs Date Time Temp Pulse Resp B/P Pulse Ox O2 Delivery O2 Flow Rate FiO2 06/23/16 17:01 69 06/23/16 16:02 2.0 06/23/16 15:28 98.3 16 139/65 97 06/23/16 08:00 Nasal Cannula Intake and Output 06/22/16 06/22/16 06/23/16 15:00 23:00 07:00 Intake Total 720 ml 250 ml Balance 720 ml 250 ml Exam Constitutional: alert Psych: no complaints Head: atraumatic, normocephalic Eyes: nl conjunctiva ENMT: nl external ears & nose Neck: non-tender, supple Respiratory: clear to auscultation Cardiovascular: nl pulses Gastrointestinal: non-tender, soft Musculoskeletal: nl extremities to inspection Extremities: normal pulses Neurological: TEST BORER II-XII intact Skin: nl turgor Results Result Diagram: 06/21/16 0630 06/23/16 0541 Results 24 hrs Laboratory Tests Test 06/22/16 17:32 06/22/16 19:56 06/23/16 02:22 06/23/16 02:59 Bedside Glucose 150 128 63 L 104 Test 06/23/16 05:41 06/23/16 07:37 06/23/16 07:56 06/23/16 08:22 Anion Gap 14 Blood Urea Nitrogen 57 H Calcium Level 9.4 Carbon Dioxide Level 31 Chloride Level 98 Creatinine 7.66 H Glucose Level 69 L Potassium Level 4.8 Sodium Level 138 Bedside Glucose 68 L 102 Lab Scanned Report REFERENCE LAB Test 06/23/16 12:01 Bedside Glucose 132 Medications Medications Current Medications IV Flush (NS 10 ml) 10 ml PRN PRN IV FLUSH LINE; Start 06/13/16 at 19:00 Aspirin (Halfprin) 81 mg DAILY PO Last administered on 06/23/16 09:10; Admin Dose 81 MG; Start 06/14/16 at 09:00 Atorvastatin Calcium (Lipitor) 10 mg QHS PO Last administered on 06/22/16 19: 53; Admin Dose 10 MG; Start 06/14/16 at 21:00 Cholecalciferol (Vitamin D) 400 units DAILY PO Last administered on 06/23/16 09:10; Admin Dose 400 UNITS; Start 06/14/16 at 09:00 Clopidogrel Bisulfate (plaVIX) 75 mg DAILY PO Last administered on 06/23/16 09 :10; Admin Dose 75 MG; Start 06/14/16 at 09:00 Ferrous Sulfate (Ferrous Sulfate (Ec)) 325 mg BID PO Last administered on 09:10; Admin Dose 325 MG; Start 06/14/16 at 09:00 Metoprolol Tartrate (Lopressor) 25 mg BID PO Last administered on 06/23/16 09: 13; Admin Dose 25 MG; Start 06/14/16 at 09:00 Hydralazine HCl (Apresoline) 10 mg Q4H PRN IV for SBP more than 170 Last administered on 06/19/16 17:17; Admin Dose 10 MG; Start 06/14/16 at 00:00 Acetaminophen (Tylenol Tab) 500 mg Q4H PRN PO PAIN AND OR ELEVATED TEMP Last administered on 06/22/16 11:29; Admin Dose 500 MG; Start 06/14/16 at 00:00 Heparin Sodium (Porcine) (Heparin (5000 Units/0.5 ml)) 5,000 unit BID SC Last administered on 06/21/16 09:23; Admin Dose 5,000 UNIT; Start 06/14/16 at 09:00 Miscellaneous Information 1 ea NOTE XX Last administered on 06/18/16 07:57; Admin Dose 1 EA; Start 06/14/16 at 00:30 Glucose (Glutose) 15 gm Q15M PRN PO DECREASED GLUCOSE; Start 06/14/16 at 00:30 Glucose (Glutose) 22.5 gm Q15M PRN PO DECREASED GLUCOSE; Start 06/14/16 at 00: 30 Dextrose (D50w Syringe) 25 ml Q15M PRN IV DECREASED GLUCOSE; Start 06/14/16 at 00:30 Dextrose (D50w Syringe) 50 ml Q15M PRN IV DECREASED GLUCOSE; Start 06/14/16 at 00:30 Glucagon (Glucagen) 1 mg Q15M PRN IM DECREASED GLUCOSE; Start 06/14/16 at 00:30 Glucose (Glutose) 15 gm Q15M PRN BUCCAL DECREASED GLUCOSE; Start 06/14/16 at 00 :30 Diagnostic Test (Pha) (Accucheck) 1 ea 02 XX Last administered on 06/23/16 02: 29; Admin Dose 1 EA; Start 06/14/16 at 02:00 Famotidine (Pepcid) 20 mg DAILY PO Last administered on 06/23/16 09:10; Admin Dose 20 MG; Start 06/14/16 at 09:00 Amlodipine Besylate (Norvasc) 5 mg BID PO Last administered on 06/23/16 09:14 ; Admin Dose 5 MG; Start 06/14/16 at 13:30 Clonidine (Catapres) 0.2 mg Q8 PRN PO Systolic >160 Last administered on 00:01; Admin Dose 0.2 MG; Start 06/14/16 at 13:00 Promethazine HCl/ Codeine (Phenergan/ Codeine) 5 ml Q4H PRN PO COUGH Last administered on 06/21/16 18:04; Admin Dose 5 ML; Start 06/15/16 at 00:00 Insulin Glargine (Lantus) 14 unit QHS SC Last administered on 06/22/16 20:03; Admin Dose 14 UNIT; Start 06/15/16 at 21:00 Pantoprazole (Protonix Tab) 40 mg DAILY@06 PO Last administered on 06/23/16 05 :20; Admin Dose 40 MG; Start 06/16/16 at 06:00 Diphenhydramine HCl (Benadryl) 25 mg HS PRN PO INSOMNIA Last administered on 22:43; Admin Dose 25 MG; Start 06/15/16 at 21:30 Hydralazine HCl (Apresoline) 100 mg Q8 PO Last administered on 06/23/16 16:59 ; Admin Dose 100 MG; Start 06/19/16 at 13:00 Bisacodyl (Dulcolax) 10 mg DAILY PRN PO CONSTIPATION; Start 06/22/16 at 11:30 Benazepril HCl (Lotensin) 40 mg BID PO ; Start 06/23/16 at 21:00 CECILIA DAMICO Jun 23, 2016 17:33
--- NOTE | 2016-06-23 19:52 | CONS ---
Date/Time of Note Date/Time of Note DATE: 06/23/16 TIME: 19:51 Assessment/Plan Assessment/Plan Chief Complaint/Hosp Course ESRD HTN PNEUMONIA PLEURAL EFFUSION PLAN PER CARDIO NON COMPLIANCE W HD hd refused hd 3 x wk HD AM INC UF Problems: Consultation Date/Type/Reason Admit Date/Time Jun 13, 2016 at 14:48 Type of Consultation: RENAL Referring Provider: EVA COX MD 24 HR Interval Summary Subjective hx not possible: other (SOB BETTER) Exam/Review of Systems Vital Signs Vitals Vital Signs Date Time Temp Pulse Resp B/P Pulse Ox O2 Delivery O2 Flow Rate FiO2 06/23/16 17:01 69 06/23/16 16:02 2.0 06/23/16 15:28 98.3 16 139/65 97 06/23/16 08:00 Nasal Cannula Intake and Output 06/22/16 06/22/16 06/23/16 15:00 23:00 07:00 Intake Total 720 ml 250 ml Balance 720 ml 250 ml Exam Respiratory: diminished breath sounds Cardiovascular: regular rate and rhythm Gastrointestinal: bowel sounds (+), soft Musculoskeletal: nl extremities to inspection Results Result Diagram: 06/21/16 0630 06/23/16 0541 Results 24 hrs Laboratory Tests Test 06/22/16 19:56 06/23/16 02:22 06/23/16 02:59 06/23/16 05:41 Bedside Glucose 128 63 L 104 Anion Gap 14 Blood Urea Nitrogen 57 H Calcium Level 9.4 Carbon Dioxide Level 31 Chloride Level 98 Creatinine 7.66 H Glucose Level 69 L Potassium Level 4.8 Sodium Level 138 Test 06/23/16 07:37 06/23/16 07:56 06/23/16 08:22 06/23/16 12:01 Bedside Glucose 68 L 102 132 Lab Scanned Report REFERENCE LAB Test 06/23/16 17:45 Bedside Glucose 198 Medications Medications Current Medications IV Flush (NS 10 ml) 10 ml PRN PRN IV FLUSH LINE; Start 06/13/16 at 19:00 Aspirin (Halfprin) 81 mg DAILY PO Last administered on 06/23/16 09:10; Admin Dose 81 MG; Start 06/14/16 at 09:00 Atorvastatin Calcium (Lipitor) 10 mg QHS PO Last administered on 06/22/16 19: 53; Admin Dose 10 MG; Start 06/14/16 at 21:00 Cholecalciferol (Vitamin D) 400 units DAILY PO Last administered on 06/23/16 09:10; Admin Dose 400 UNITS; Start 06/14/16 at 09:00 Clopidogrel Bisulfate (plaVIX) 75 mg DAILY PO Last administered on 06/23/16 09 :10; Admin Dose 75 MG; Start 06/14/16 at 09:00 Ferrous Sulfate (Ferrous Sulfate (Ec)) 325 mg BID PO Last administered on 09:10; Admin Dose 325 MG; Start 06/14/16 at 09:00 Metoprolol Tartrate (Lopressor) 25 mg BID PO Last administered on 06/23/16 09: 13; Admin Dose 25 MG; Start 06/14/16 at 09:00 Hydralazine HCl (Apresoline) 10 mg Q4H PRN IV for SBP more than 170 Last administered on 06/19/16 17:17; Admin Dose 10 MG; Start 06/14/16 at 00:00 Acetaminophen (Tylenol Tab) 500 mg Q4H PRN PO PAIN AND OR ELEVATED TEMP Last administered on 06/22/16 11:29; Admin Dose 500 MG; Start 06/14/16 at 00:00 Heparin Sodium (Porcine) (Heparin (5000 Units/0.5 ml)) 5,000 unit BID SC Last administered on 06/21/16 09:23; Admin Dose 5,000 UNIT; Start 06/14/16 at 09:00 Miscellaneous Information 1 ea NOTE XX Last administered on 06/18/16 07:57; Admin Dose 1 EA; Start 06/14/16 at 00:30 Glucose (Glutose) 15 gm Q15M PRN PO DECREASED GLUCOSE; Start 06/14/16 at 00:30 Glucose (Glutose) 22.5 gm Q15M PRN PO DECREASED GLUCOSE; Start 06/14/16 at 00: 30 Dextrose (D50w Syringe) 25 ml Q15M PRN IV DECREASED GLUCOSE; Start 06/14/16 at 00:30 Dextrose (D50w Syringe) 50 ml Q15M PRN IV DECREASED GLUCOSE; Start 06/14/16 at 00:30 Glucagon (Glucagen) 1 mg Q15M PRN IM DECREASED GLUCOSE; Start 06/14/16 at 00:30 Glucose (Glutose) 15 gm Q15M PRN BUCCAL DECREASED GLUCOSE; Start 06/14/16 at 00 :30 Diagnostic Test (Pha) (Accucheck) 1 ea 02 XX Last administered on 06/23/16 02: 29; Admin Dose 1 EA; Start 06/14/16 at 02:00 Famotidine (Pepcid) 20 mg DAILY PO Last administered on 06/23/16 09:10; Admin Dose 20 MG; Start 06/14/16 at 09:00 Amlodipine Besylate (Norvasc) 5 mg BID PO Last administered on 06/23/16 09:14 ; Admin Dose 5 MG; Start 06/14/16 at 13:30 Clonidine (Catapres) 0.2 mg Q8 PRN PO Systolic >160 Last administered on 00:01; Admin Dose 0.2 MG; Start 06/14/16 at 13:00 Promethazine HCl/ Codeine (Phenergan/ Codeine) 5 ml Q4H PRN PO COUGH Last administered on 06/21/16 18:04; Admin Dose 5 ML; Start 06/15/16 at 00:00 Insulin Glargine (Lantus) 14 unit QHS SC Last administered on 06/22/16 20:03; Admin Dose 14 UNIT; Start 06/15/16 at 21:00 Pantoprazole (Protonix Tab) 40 mg DAILY@06 PO Last administered on 06/23/16 05 :20; Admin Dose 40 MG; Start 06/16/16 at 06:00 Diphenhydramine HCl (Benadryl) 25 mg HS PRN PO INSOMNIA Last administered on 22:43; Admin Dose 25 MG; Start 06/15/16 at 21:30 Hydralazine HCl (Apresoline) 100 mg Q8 PO Last administered on 06/23/16 16:59 ; Admin Dose 100 MG; Start 06/19/16 at 13:00 Bisacodyl (Dulcolax) 10 mg DAILY PRN PO CONSTIPATION; Start 06/22/16 at 11:30 Benazepril HCl (Lotensin) 40 mg BID PO ; Start 06/23/16 at 21:00 PAOLA MOODY MD Jun 23, 2016 19:52
[2016-06-23] MEDS: ATORVASTATIN 10 MG TAB PO SCH (20:27)
[2016-06-23] MEDS: BENAZEPRIL 40 MG TAB PO SCH (20:27)
[2016-06-23] MEDS: INSULIN GLARGINE [LANtus] 3 ML PEN SC SCH (20:31)
[2016-06-24] VITALS (17 sets, daily range): BP systolic 115–182; BP diastolic 56–82; PULSE 68–75; RESP 17–20
[2016-06-24] MEDS: ACCU-CHEK XX SCH ×5 (02:00→21:00)
[2016-06-24] MEDS: PANTOPRAZOLE (EC) 40 MG TAB PO SCH (05:55)
[2016-06-24] MEDS: INSULIN ASPART [NOVOLOG] 3 ML PEN SC SCH ×4 (07:55→20:48)
--- NOTE | 2016-06-24 08:01 | RADRPT ---
PROCEDURE: XR Chest. CLINICAL INDICATION: Pneumonia TECHNIQUE: Single portable view of the chest was obtained COMPARISON: Chest 06/1981 1017 FINDINGS: Again noted is a permanent pacemaker with bipolar electrodes extending to the region right heart. T here is moderate sized right pleural effusion unchanged. Right basilar consolidation may all repres ent atelectasis done pneumonia should be considered. Minimal patchy density at the medial lung base s may represent additional atelectasis still infiltrates in these regions cannot be excluded. The o verall appearance is unchanged. Remainder lungs are clear. The heart is within upper limits of nor mal size without pulmonary vascular congestion. No evidence of left pleural effusion or pneumothora whit. There is evidence of previous left perihilar series. IMPRESSION: 1. No significant change. 2. Moderate size right pleural effusion. 3. Bibasilar consolidations as described above may represent atelectasis however pneumonia particul river at the lateral right lung base should be considered. 4. No evidence congestive heart failure. RPTAT:AAJJ Physician Aydee Date Time Electronically viewed and signed by Physician Aydee on 06/24/2016 08:01 BM/
[2016-06-24] MEDS: SEVELAMER CARBONATE 0.8 GM PKT PO SCH ×3 (08:33→17:39)
[2016-06-24] MEDS: CALCIUM ACETATE 667 MG CAP PO SCH ×3 (08:34→17:39)
[2016-06-24] MEDS: BENAZEPRIL 40 MG TAB PO SCH ×2 (08:36→20:51)
[2016-06-24] MEDS: CLOPIDOGREL 75 MG TAB PO SCH (08:36)
[2016-06-24] MEDS: METOPROLOL 25 MG TAB PO SCH ×2 (08:37→20:52)
[2016-06-24] MEDS: CHOLECALCIFEROL 400 UNITS TAB PO SCH (08:38)
[2016-06-24] MEDS: ASPIRIN (EC) 81 MG TAB PO SCH (08:38)
[2016-06-24] MEDS: AMLODIPINE 5 MG TAB PO SCH ×2 (08:38→20:52)
[2016-06-24] MEDS: FERROUS SULFATE (EC) 325 MG TAB PO SCH ×2 (08:42→20:48)
[2016-06-24] MEDS: FAMOTIDINE 20 MG TAB PO SCH (08:42)
[2016-06-24] MEDS: HEPARIN 5,000 UNIT/0.5 ML SYG SC SCH ×2 (08:43→20:52)
[2016-06-24] MEDS ORDERED: BENA40TA41 PO (16:43)
[2016-06-24] MEDS ORDERED: AMLO-145 PO (16:43)
[2016-06-24] MEDS: ATORVASTATIN 10 MG TAB PO SCH (20:48)
--- NOTE | 2016-06-24 20:56 | CONS ---
Date/Time of Note Date/Time of Note DATE: 06/24/16 TIME: 20:55 Assessment/Plan Assessment/Plan Chief Complaint/Hosp Course ESRD HTN PNEUMONIA PLEURAL EFFUSION PLAN PER CARDIO NON COMPLIANCE W HD hd refused hd 3 x wk HD INC UF Problems: Consultation Date/Type/Reason Admit Date/Time Jun 13, 2016 at 14:48 Type of Consultation: RENAL Referring Provider: EVA COX MD 24 HR Interval Summary Constitutional: requiring O2 Exam/Review of Systems Vital Signs Vitals Vital Signs Date Time Temp Pulse Resp B/P Pulse Ox O2 Delivery O2 Flow Rate FiO2 06/24/16 20:04 69 06/24/16 16:22 85 Room Air 06/24/16 15:28 2.0 06/24/16 15:16 98.0 18 164/74 Intake and Output 06/23/16 06/23/16 06/24/16 15:00 23:00 07:00 Intake Total 240 ml 760 ml Balance 240 ml 760 ml Exam Respiratory: diminished breath sounds Cardiovascular: regular rate and rhythm Gastrointestinal: soft Musculoskeletal: nl extremities to inspection Extremities: normal pulses Results Result Diagram: 06/21/16 0630 06/23/16 0541 Results 24 hrs Laboratory Tests Test 06/24/16 08:22 06/24/16 12:16 06/24/16 15:32 06/24/16 17:33 Bedside Glucose 71 155 200 191 Test 06/24/16 20:47 Bedside Glucose 170 Medications Medications Current Medications IV Flush (NS 10 ml) 10 ml PRN PRN IV FLUSH LINE; Start 06/13/16 at 19:00 Aspirin (Halfprin) 81 mg DAILY PO Last administered on 06/24/16 08:38; Admin Dose 81 MG; Start 06/14/16 at 09:00 Atorvastatin Calcium (Lipitor) 10 mg QHS PO Last administered on 06/24/16 20: 48; Admin Dose 10 MG; Start 06/14/16 at 21:00 Cholecalciferol (Vitamin D) 400 units DAILY PO Last administered on 06/24/16 08:38; Admin Dose 400 UNITS; Start 06/14/16 at 09:00 Clopidogrel Bisulfate (plaVIX) 75 mg DAILY PO Last administered on 06/24/16 08 :36; Admin Dose 75 MG; Start 06/14/16 at 09:00 Ferrous Sulfate (Ferrous Sulfate (Ec)) 325 mg BID PO Last administered on 20:48; Admin Dose 325 MG; Start 06/14/16 at 09:00 Metoprolol Tartrate (Lopressor) 25 mg BID PO Last administered on 06/24/16 20: 52; Admin Dose 25 MG; Start 06/14/16 at 09:00 Hydralazine HCl (Apresoline) 10 mg Q4H PRN IV for SBP more than 170 Last administered on 06/19/16 17:17; Admin Dose 10 MG; Start 06/14/16 at 00:00 Acetaminophen (Tylenol Tab) 500 mg Q4H PRN PO PAIN AND OR ELEVATED TEMP Last administered on 06/22/16 11:29; Admin Dose 500 MG; Start 06/14/16 at 00:00 Heparin Sodium (Porcine) (Heparin (5000 Units/0.5 ml)) 5,000 unit BID SC Last administered on 06/23/16 20:30; Admin Dose 5,000 UNIT; Start 06/14/16 at 09:00 Miscellaneous Information 1 ea NOTE XX Last administered on 06/18/16 07:57; Admin Dose 1 EA; Start 06/14/16 at 00:30 Glucose (Glutose) 15 gm Q15M PRN PO DECREASED GLUCOSE; Start 06/14/16 at 00:30 Glucose (Glutose) 22.5 gm Q15M PRN PO DECREASED GLUCOSE; Start 06/14/16 at 00: 30 Dextrose (D50w Syringe) 25 ml Q15M PRN IV DECREASED GLUCOSE; Start 06/14/16 at 00:30 Dextrose (D50w Syringe) 50 ml Q15M PRN IV DECREASED GLUCOSE; Start 06/14/16 at 00:30 Glucagon (Glucagen) 1 mg Q15M PRN IM DECREASED GLUCOSE; Start 06/14/16 at 00:30 Glucose (Glutose) 15 gm Q15M PRN BUCCAL DECREASED GLUCOSE; Start 06/14/16 at 00 :30 Diagnostic Test (Pha) (Accucheck) 1 ea 02 XX Last administered on 06/23/16 02: 29; Admin Dose 1 EA; Start 06/14/16 at 02:00 Famotidine (Pepcid) 20 mg DAILY PO Last administered on 06/24/16 08:42; Admin Dose 20 MG; Start 06/14/16 at 09:00 Amlodipine Besylate (Norvasc) 5 mg BID PO Last administered on 06/24/16 20:52 ; Admin Dose 5 MG; Start 06/14/16 at 13:30 Clonidine (Catapres) 0.2 mg Q8 PRN PO Systolic >160 Last administered on 00:01; Admin Dose 0.2 MG; Start 06/14/16 at 13:00 Promethazine HCl/ Codeine (Phenergan/ Codeine) 5 ml Q4H PRN PO COUGH Last administered on 06/21/16 18:04; Admin Dose 5 ML; Start 06/15/16 at 00:00 Insulin Glargine (Lantus) 14 unit QHS SC Last administered on 06/23/16 20:31; Admin Dose 14 UNIT; Start 06/15/16 at 21:00 Pantoprazole (Protonix Tab) 40 mg DAILY@06 PO Last administered on 06/24/16 05 :55; Admin Dose 40 MG; Start 06/16/16 at 06:00 Diphenhydramine HCl (Benadryl) 25 mg HS PRN PO INSOMNIA Last administered on 22:43; Admin Dose 25 MG; Start 06/15/16 at 21:30 Hydralazine HCl (Apresoline) 100 mg Q8 PO Last administered on 06/24/16 15:30 ; Admin Dose 100 MG; Start 06/19/16 at 13:00 Bisacodyl (Dulcolax) 10 mg DAILY PRN PO CONSTIPATION; Start 06/22/16 at 11:30 Benazepril HCl (Lotensin) 40 mg BID PO Last administered on 06/24/16 20:51; Admin Dose 40 MG; Start 06/23/16 at 21:00 PAOLA MOODY MD Jun 24, 2016 20:56
[2016-06-24] MEDS: INSULIN GLARGINE [LANtus] 3 ML PEN SC SCH (21:00)
[2016-06-24] MEDS: LEVALBUTEROL (HFA) 15 GM INHALER INH SCH (22:58)
[2016-06-25 00:30] VITALS: BP 174/74; PULSE 73; RESP 18
[2016-06-25] MEDS: DIPHENHYDRAMINE 25 MG CAP PO PRN (00:54)
[2016-06-25] MEDS: ACCU-CHEK XX SCH ×5 (02:00→21:00)
[2016-06-25 04:19] VITALS: BP 144/66; PULSE 71; RESP 20
[2016-06-25] MEDS: PANTOPRAZOLE (EC) 40 MG TAB PO SCH (06:14)
[2016-06-25 07:54] VITALS: BP 127/60; RESP 18
[2016-06-25] MEDS: INSULIN ASPART [NOVOLOG] 3 ML PEN SC SCH ×5 (07:55→21:22)
[2016-06-25] MEDS: METOPROLOL 25 MG TAB PO SCH ×2 (09:00→21:28)
[2016-06-25] MEDS: ASPIRIN (EC) 81 MG TAB PO SCH (09:00)
[2016-06-25] MEDS: BENAZEPRIL 40 MG TAB PO SCH ×2 (09:00→21:16)
[2016-06-25] MEDS: FAMOTIDINE 20 MG TAB PO SCH (09:00)
[2016-06-25] MEDS: SEVELAMER CARBONATE 0.8 GM PKT PO SCH ×3 (09:00→18:17)
[2016-06-25] MEDS: CHOLECALCIFEROL 400 UNITS TAB PO SCH (09:00)
[2016-06-25] MEDS: AMLODIPINE 5 MG TAB PO SCH ×2 (09:00→21:28)
[2016-06-25] MEDS: CALCIUM ACETATE 667 MG CAP PO SCH ×3 (09:00→18:17)
[2016-06-25] MEDS: FERROUS SULFATE (EC) 325 MG TAB PO SCH ×2 (09:00→21:15)
[2016-06-25] MEDS: CLOPIDOGREL 75 MG TAB PO SCH (09:00)
[2016-06-25] MEDS: HEPARIN 5,000 UNIT/0.5 ML SYG SC SCH ×2 (09:00→21:00)
[2016-06-25 12:17] VITALS: BP_SYST 119; BP_SYST 145; BP_DIAS 56; BP_DIAS 62; RESP 18
--- NOTE | 2016-06-25 13:34 | CONS ---
Date/Time of Note Date/Time of Note DATE: 06/25/16 TIME: 13:31 Assessment/Plan Assessment/Plan Chief Complaint/Hosp Course IMPRESSION: 1. Abnormal electrocardiogram, assess for acute coronary syndrome.-negative troponin x 3 2. History of recent negative stress, May 2015. 3. History of percutaneous transluminal coronary angioplasty and stent placement in 2014 to the left main left anterior descending. No current chest pain. 4. Hypertension, mildly elevated. 5. History of dyslipidemia. 6. Pleural effusion, status post thoracentesis. 7. Possible pneumonia/cough-improved 8. Diabetes mellitus. 9. End-stage renal disease, on hemodialysis. RECOMMENDATIONS: -Tele -Continue metoprolol/Benazepril -Continue norvasc/hydralazine -Continue asa/plavix/statin -Consider abx's and f/u cx data -Follow volume status with HD for volume removal -To undergo VATS/pleurodesis Problems: Consultation Date/Type/Reason Admit Date/Time Jun 13, 2016 at 14:48 Initial Consult Date 06/14/2016 Type of Consultation: Cardiology Reason for Consultation abnl ecg/cardiomyopathy Referring Provider: EVA COX MD Exam/Review of Systems Vital Signs Vitals Vital Signs Date Time Temp Pulse Resp B/P Pulse Ox O2 Delivery O2 Flow Rate FiO2 06/25/16 12:22 2.0 28 06/25/16 12:17 97.0 70 18 145/62 98 06/25/16 04:19 Room Air Intake and Output 06/24/16 06/24/16 06/25/16 14:59 22:59 06:59 Intake Total 600 ml 400 ml Output Total 3600 ml Balance -3000 ml 400 ml Exam Review of Systems: CONSTITUTIONAL: No fevers, chills. PULMONARY: Mild sob ongoing CARDIOVASCULAR: No chest pain/palpitations GASTROINTESTINAL: No nausea/vomiting. GENITOURINARY: No hematuria/dysuria. MUSCULOSKELETAL: No myagias/arthalgias. PSYCHIATRIC: The patient denies depression. NEUROLOGIC: No weakness Constitutional: alert Psych: no complaints Head: normocephalic ENMT: mucosa pink and moist Neck: supple Respiratory: clear to auscultation Cardiovascular: regular rate and rhythm Gastrointestinal: non-tender, soft Musculoskeletal: muscle tone (normal) Extremities: other (No focal deficits) Results Result Diagram: 06/21/16 0630 06/23/16 0541 Results 24 hrs Laboratory Tests Test 06/24/16 15:32 06/24/16 17:33 06/24/16 20:47 06/25/16 00:56 Bedside Glucose 200 191 170 156 Test 06/25/16 08:42 06/25/16 12:46 Bedside Glucose 130 114 Medications Medications Current Medications IV Flush (NS 10 ml) 10 ml PRN PRN IV FLUSH LINE; Start 06/13/16 at 19:00 Aspirin (Halfprin) 81 mg DAILY PO Last administered on 06/24/16 08:38; Admin Dose 81 MG; Start 06/14/16 at 09:00 Atorvastatin Calcium (Lipitor) 10 mg QHS PO Last administered on 06/24/16 20: 48; Admin Dose 10 MG; Start 06/14/16 at 21:00 Cholecalciferol (Vitamin D) 400 units DAILY PO Last administered on 06/24/16 08:38; Admin Dose 400 UNITS; Start 06/14/16 at 09:00 Clopidogrel Bisulfate (plaVIX) 75 mg DAILY PO Last administered on 06/24/16 08 :36; Admin Dose 75 MG; Start 06/14/16 at 09:00 Ferrous Sulfate (Ferrous Sulfate (Ec)) 325 mg BID PO Last administered on 20:48; Admin Dose 325 MG; Start 06/14/16 at 09:00 Metoprolol Tartrate (Lopressor) 25 mg BID PO Last administered on 06/24/16 20: 52; Admin Dose 25 MG; Start 06/14/16 at 09:00 Hydralazine HCl (Apresoline) 10 mg Q4H PRN IV for SBP more than 170 Last administered on 06/19/16 17:17; Admin Dose 10 MG; Start 06/14/16 at 00:00 Acetaminophen (Tylenol Tab) 500 mg Q4H PRN PO PAIN AND OR ELEVATED TEMP Last administered on 06/22/16 11:29; Admin Dose 500 MG; Start 06/14/16 at 00:00 Heparin Sodium (Porcine) (Heparin (5000 Units/0.5 ml)) 5,000 unit BID SC Last administered on 06/23/16 20:30; Admin Dose 5,000 UNIT; Start 06/14/16 at 09:00 Miscellaneous Information 1 ea NOTE XX Last administered on 06/18/16 07:57; Admin Dose 1 EA; Start 06/14/16 at 00:30 Glucose (Glutose) 15 gm Q15M PRN PO DECREASED GLUCOSE; Start 06/14/16 at 00:30 Glucose (Glutose) 22.5 gm Q15M PRN PO DECREASED GLUCOSE; Start 06/14/16 at 00: 30 Dextrose (D50w Syringe) 25 ml Q15M PRN IV DECREASED GLUCOSE; Start 06/14/16 at 00:30 Dextrose (D50w Syringe) 50 ml Q15M PRN IV DECREASED GLUCOSE; Start 06/14/16 at 00:30 Glucagon (Glucagen) 1 mg Q15M PRN IM DECREASED GLUCOSE; Start 06/14/16 at 00:30 Glucose (Glutose) 15 gm Q15M PRN BUCCAL DECREASED GLUCOSE; Start 06/14/16 at 00 :30 Diagnostic Test (Pha) (Accucheck) 1 ea 02 XX Last administered on 06/23/16 02: 29; Admin Dose 1 EA; Start 06/14/16 at 02:00 Famotidine (Pepcid) 20 mg DAILY PO Last administered on 06/24/16 08:42; Admin Dose 20 MG; Start 06/14/16 at 09:00 Amlodipine Besylate (Norvasc) 5 mg BID PO Last administered on 06/24/16 20:52 ; Admin Dose 5 MG; Start 06/14/16 at 13:30 Clonidine (Catapres) 0.2 mg Q8 PRN PO Systolic >160 Last administered on 00:01; Admin Dose 0.2 MG; Start 06/14/16 at 13:00 Promethazine HCl/ Codeine (Phenergan/ Codeine) 5 ml Q4H PRN PO COUGH Last administered on 06/21/16 18:04; Admin Dose 5 ML; Start 06/15/16 at 00:00 Insulin Glargine (Lantus) 14 unit QHS SC Last administered on 06/23/16 20:31; Admin Dose 14 UNIT; Start 06/15/16 at 21:00 Pantoprazole (Protonix Tab) 40 mg DAILY@06 PO Last administered on 06/25/16 06 :14; Admin Dose 40 MG; Start 06/16/16 at 06:00 Diphenhydramine HCl (Benadryl) 25 mg HS PRN PO INSOMNIA Last administered on 00:54; Admin Dose 25 MG; Start 06/15/16 at 21:30 Hydralazine HCl (Apresoline) 100 mg Q8 PO Last administered on 06/25/16 06:15 ; Admin Dose 100 MG; Start 06/19/16 at 13:00 Bisacodyl (Dulcolax) 10 mg DAILY PRN PO CONSTIPATION; Start 06/22/16 at 11:30 Benazepril HCl (Lotensin) 40 mg BID PO Last administered on 06/24/16 20:51; Admin Dose 40 MG; Start 06/23/16 at 21:00 SHERTIA SCOTT Jun 25, 2016 13:34
[2016-06-25 15:25] VITALS: BP 169/53; RESP 18
--- NOTE | 2016-06-25 15:34 | PN ---
Date/Time of Note Date/Time of Note DATE: 06/25/16 TIME: 15:33 Assessment/Plan VTE Prophylaxis VTE Prophylaxis Intervention: SCD's Lines/Catheters IV [facility] PICC Line Central line still needed: Yes Urinary Cath still in place: No Assessment/Plan Chief Complaint/Hosp Course Assessment and plan - Recurrent pleural effusions. Dr. Martinez is following in thoracic surgery consultation. Pending VATS today. - Right pleural effusion, status post thoracentesis. Dr. Dale is following in pulmonology consultation. - End-stage renal disease, continue hemodialysis. Dr. Saunders is following in nephrology consultation. - Diabetes mellitus type 2, continue Lantus and NovoLog - Hypertension. Dr. De Santiago is following and cardiology consultation. - Coronary artery disease, status post coronary artery bypass graft. Continue aspirin and Plavix. - Permanent pacemaker. No acute issues. - Dyslipidemia. Continue Lipitor. 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 Continue heparin for deep venous thrombosis prophylaxis and Protonix for peptic ulcer disease prophylaxis. Further recommendations based on clinical course. Plan of care discussed with Dr. Price. Problems: Exam/Review of Systems Vital Signs Vitals Vital Signs Date Time Temp Pulse Resp B/P Pulse Ox O2 Delivery O2 Flow Rate FiO2 06/25/16 15:25 97.8 69 18 169/53 96 06/25/16 12:22 2.0 28 06/25/16 04:19 Room Air Intake and Output 06/24/16 06/24/16 06/25/16 15:00 23:00 07:00 Intake Total 600 ml 400 ml Output Total 3600 ml Balance -3000 ml 400 ml Exam Constitutional: alert Psych: no complaints Head: atraumatic, normocephalic Eyes: nl conjunctiva ENMT: nl external ears & nose Neck: non-tender, supple Respiratory: clear to auscultation Cardiovascular: nl pulses Gastrointestinal: non-tender, soft Musculoskeletal: nl extremities to inspection Extremities: normal pulses Neurological: TERMINAL SYSTEM OPERATOR II-XII intact Skin: nl turgor Results Result Diagram: 06/21/16 0630 06/23/16 0541 Results 24 hrs Laboratory Tests Test 06/24/16 17:33 06/24/16 20:47 06/25/16 00:56 06/25/16 08:42 Bedside Glucose 191 170 156 130 Test 06/25/16 12:46 Bedside Glucose 114 Medications Medications Current Medications IV Flush (NS 10 ml) 10 ml PRN PRN IV FLUSH LINE; Start 06/13/16 at 19:00 Aspirin (Halfprin) 81 mg DAILY PO Last administered on 06/24/16 08:38; Admin Dose 81 MG; Start 06/14/16 at 09:00 Atorvastatin Calcium (Lipitor) 10 mg QHS PO Last administered on 06/24/16 20: 48; Admin Dose 10 MG; Start 06/14/16 at 21:00 Cholecalciferol (Vitamin D) 400 units DAILY PO Last administered on 06/24/16 08:38; Admin Dose 400 UNITS; Start 06/14/16 at 09:00 Clopidogrel Bisulfate (plaVIX) 75 mg DAILY PO Last administered on 06/24/16 08 :36; Admin Dose 75 MG; Start 06/14/16 at 09:00 Ferrous Sulfate (Ferrous Sulfate (Ec)) 325 mg BID PO Last administered on 20:48; Admin Dose 325 MG; Start 06/14/16 at 09:00 Metoprolol Tartrate (Lopressor) 25 mg BID PO Last administered on 06/24/16 20: 52; Admin Dose 25 MG; Start 06/14/16 at 09:00 Hydralazine HCl (Apresoline) 10 mg Q4H PRN IV for SBP more than 170 Last administered on 06/19/16 17:17; Admin Dose 10 MG; Start 06/14/16 at 00:00 Acetaminophen (Tylenol Tab) 500 mg Q4H PRN PO PAIN AND OR ELEVATED TEMP Last administered on 06/22/16 11:29; Admin Dose 500 MG; Start 06/14/16 at 00:00 Heparin Sodium (Porcine) (Heparin (5000 Units/0.5 ml)) 5,000 unit BID SC Last administered on 06/23/16 20:30; Admin Dose 5,000 UNIT; Start 06/14/16 at 09:00 Miscellaneous Information 1 ea NOTE XX Last administered on 06/18/16 07:57; Admin Dose 1 EA; Start 06/14/16 at 00:30 Glucose (Glutose) 15 gm Q15M PRN PO DECREASED GLUCOSE; Start 06/14/16 at 00:30 Glucose (Glutose) 22.5 gm Q15M PRN PO DECREASED GLUCOSE; Start 06/14/16 at 00: 30 Dextrose (D50w Syringe) 25 ml Q15M PRN IV DECREASED GLUCOSE; Start 06/14/16 at 00:30 Dextrose (D50w Syringe) 50 ml Q15M PRN IV DECREASED GLUCOSE; Start 06/14/16 at 00:30 Glucagon (Glucagen) 1 mg Q15M PRN IM DECREASED GLUCOSE; Start 06/14/16 at 00:30 Glucose (Glutose) 15 gm Q15M PRN BUCCAL DECREASED GLUCOSE; Start 06/14/16 at 00 :30 Diagnostic Test (Pha) (Accucheck) 1 ea 02 XX Last administered on 06/23/16 02: 29; Admin Dose 1 EA; Start 06/14/16 at 02:00 Famotidine (Pepcid) 20 mg DAILY PO Last administered on 06/24/16 08:42; Admin Dose 20 MG; Start 06/14/16 at 09:00 Amlodipine Besylate (Norvasc) 5 mg BID PO Last administered on 06/24/16 20:52 ; Admin Dose 5 MG; Start 06/14/16 at 13:30 Clonidine (Catapres) 0.2 mg Q8 PRN PO Systolic >160 Last administered on 00:01; Admin Dose 0.2 MG; Start 06/14/16 at 13:00 Promethazine HCl/ Codeine (Phenergan/ Codeine) 5 ml Q4H PRN PO COUGH Last administered on 06/21/16 18:04; Admin Dose 5 ML; Start 06/15/16 at 00:00 Insulin Glargine (Lantus) 14 unit QHS SC Last administered on 06/23/16 20:31; Admin Dose 14 UNIT; Start 06/15/16 at 21:00 Pantoprazole (Protonix Tab) 40 mg DAILY@06 PO Last administered on 06/25/16 06 :14; Admin Dose 40 MG; Start 06/16/16 at 06:00 Diphenhydramine HCl (Benadryl) 25 mg HS PRN PO INSOMNIA Last administered on 00:54; Admin Dose 25 MG; Start 06/15/16 at 21:30 Hydralazine HCl (Apresoline) 100 mg Q8 PO Last administered on 06/25/16 06:15 ; Admin Dose 100 MG; Start 06/19/16 at 13:00 Bisacodyl (Dulcolax) 10 mg DAILY PRN PO CONSTIPATION; Start 06/22/16 at 11:30 Benazepril HCl (Lotensin) 40 mg BID PO Last administered on 06/24/16 20:51; Admin Dose 40 MG; Start 06/23/16 at 21:00 CECILIA DAMICO Jun 25, 2016 15:34
--- NOTE | 2016-06-25 19:24 | CONS ---
Date/Time of Note Date/Time of Note DATE: 06/25/16 TIME: 19:22 Assessment/Plan Assessment/Plan Chief Complaint/Hosp Course ESRD HTN PNEUMONIA PLEURAL EFFUSION BETTER PLAN PER CARDIO NON COMPLIANCE W HD hd refused hd 3 x wk HD T/THURSDAY PT REFUSED HD Problems: Consultation Date/Type/Reason Admit Date/Time Jun 13, 2016 at 14:48 Type of Consultation: RENAL Referring Provider: EVA COX MD 24 HR Interval Summary Constitutional: other (SOB BETTER) Exam/Review of Systems Vital Signs Vitals Vital Signs Date Time Temp Pulse Resp B/P Pulse Ox O2 Delivery O2 Flow Rate FiO2 06/25/16 17:30 2.0 28 06/25/16 15:25 97.8 69 18 169/53 96 06/25/16 08:30 Nasal Cannula Intake and Output 06/24/16 06/24/16 06/25/16 15:00 23:00 07:00 Intake Total 600 ml 400 ml Output Total 3600 ml Balance -3000 ml 400 ml Exam Neck: supple Respiratory: diminished breath sounds Cardiovascular: regular rate and rhythm Gastrointestinal: soft Musculoskeletal: nl extremities to inspection Extremities: normal pulses Results Result Diagram: 06/21/16 0630 06/23/16 0541 Results 24 hrs Laboratory Tests Test 06/24/16 20:47 06/25/16 00:56 06/25/16 08:42 06/25/16 12:46 Bedside Glucose 170 156 130 114 Test 06/25/16 17:56 Bedside Glucose 109 Medications Medications Current Medications IV Flush (NS 10 ml) 10 ml PRN PRN IV FLUSH LINE; Start 06/13/16 at 19:00 Aspirin (Halfprin) 81 mg DAILY PO Last administered on 06/24/16 08:38; Admin Dose 81 MG; Start 06/14/16 at 09:00 Atorvastatin Calcium (Lipitor) 10 mg QHS PO Last administered on 06/24/16 20: 48; Admin Dose 10 MG; Start 06/14/16 at 21:00 Cholecalciferol (Vitamin D) 400 units DAILY PO Last administered on 06/24/16 08:38; Admin Dose 400 UNITS; Start 06/14/16 at 09:00 Clopidogrel Bisulfate (plaVIX) 75 mg DAILY PO Last administered on 06/24/16 08 :36; Admin Dose 75 MG; Start 06/14/16 at 09:00 Ferrous Sulfate (Ferrous Sulfate (Ec)) 325 mg BID PO Last administered on 20:48; Admin Dose 325 MG; Start 06/14/16 at 09:00 Metoprolol Tartrate (Lopressor) 25 mg BID PO Last administered on 06/24/16 20: 52; Admin Dose 25 MG; Start 06/14/16 at 09:00 Hydralazine HCl (Apresoline) 10 mg Q4H PRN IV for SBP more than 170 Last administered on 06/19/16 17:17; Admin Dose 10 MG; Start 06/14/16 at 00:00 Acetaminophen (Tylenol Tab) 500 mg Q4H PRN PO PAIN AND OR ELEVATED TEMP Last administered on 06/22/16 11:29; Admin Dose 500 MG; Start 06/14/16 at 00:00 Heparin Sodium (Porcine) (Heparin (5000 Units/0.5 ml)) 5,000 unit BID SC Last administered on 06/23/16 20:30; Admin Dose 5,000 UNIT; Start 06/14/16 at 09:00 Miscellaneous Information 1 ea NOTE XX Last administered on 06/18/16 07:57; Admin Dose 1 EA; Start 06/14/16 at 00:30 Glucose (Glutose) 15 gm Q15M PRN PO DECREASED GLUCOSE; Start 06/14/16 at 00:30 Glucose (Glutose) 22.5 gm Q15M PRN PO DECREASED GLUCOSE; Start 06/14/16 at 00: 30 Dextrose (D50w Syringe) 25 ml Q15M PRN IV DECREASED GLUCOSE; Start 06/14/16 at 00:30 Dextrose (D50w Syringe) 50 ml Q15M PRN IV DECREASED GLUCOSE; Start 06/14/16 at 00:30 Glucagon (Glucagen) 1 mg Q15M PRN IM DECREASED GLUCOSE; Start 06/14/16 at 00:30 Glucose (Glutose) 15 gm Q15M PRN BUCCAL DECREASED GLUCOSE; Start 06/14/16 at 00 :30 Diagnostic Test (Pha) (Accucheck) 1 ea 02 XX Last administered on 06/23/16 02: 29; Admin Dose 1 EA; Start 06/14/16 at 02:00 Famotidine (Pepcid) 20 mg DAILY PO Last administered on 06/24/16 08:42; Admin Dose 20 MG; Start 06/14/16 at 09:00 Amlodipine Besylate (Norvasc) 5 mg BID PO Last administered on 06/24/16 20:52 ; Admin Dose 5 MG; Start 06/14/16 at 13:30 Clonidine (Catapres) 0.2 mg Q8 PRN PO Systolic >160 Last administered on 00:01; Admin Dose 0.2 MG; Start 06/14/16 at 13:00 Promethazine HCl/ Codeine (Phenergan/ Codeine) 5 ml Q4H PRN PO COUGH Last administered on 06/21/16 18:04; Admin Dose 5 ML; Start 06/15/16 at 00:00 Insulin Glargine (Lantus) 14 unit QHS SC Last administered on 06/23/16 20:31; Admin Dose 14 UNIT; Start 06/15/16 at 21:00 Pantoprazole (Protonix Tab) 40 mg DAILY@06 PO Last administered on 06/25/16 06 :14; Admin Dose 40 MG; Start 06/16/16 at 06:00 Diphenhydramine HCl (Benadryl) 25 mg HS PRN PO INSOMNIA Last administered on 00:54; Admin Dose 25 MG; Start 06/15/16 at 21:30 Hydralazine HCl (Apresoline) 100 mg Q8 PO Last administered on 06/25/16 06:15 ; Admin Dose 100 MG; Start 06/19/16 at 13:00 Bisacodyl (Dulcolax) 10 mg DAILY PRN PO CONSTIPATION; Start 06/22/16 at 11:30 Benazepril HCl (Lotensin) 40 mg BID PO Last administered on 06/24/16 20:51; Admin Dose 40 MG; Start 06/23/16 at 21:00 PAOLA MOODY MD Jun 25, 2016 19:24
[2016-06-25 19:29] VITALS: BP 165/78; RESP 15
[2016-06-25] MEDS: INSULIN GLARGINE [LANtus] 3 ML PEN SC SCH ×2 (21:00→21:22)
[2016-06-25] MEDS: ATORVASTATIN 10 MG TAB PO SCH (21:15)
[2016-06-25] MEDS ORDERED: INSULIN GLARGINE [LANtus] 3 ML PEN SC ONE (22:00)
[2016-06-25] MEDS: DEXTROSE 5%-0.45% NACL 1,000 ML IV SCH (22:08)
[2016-06-26] VITALS (12 sets, daily range): BP systolic 138–195; BP diastolic 63–83; PULSE 69–95; RESP 16–20
[2016-06-26] MEDS: LEVALBUTEROL (HFA) 15 GM INHALER INH SCH
[2016-06-26] MEDS: hydrALAzine 20 MG INJ IV PRN ×3 (00:27→17:31)
[2016-06-26 01:10] LABS: POTASSIUM 4.7 mmol/L (3.5-5.1)
[2016-06-26 01:13] LABS: MAGNESIUM 2.4 mg/dl (1.7-2.5)
[2016-06-26] MEDS: ACCU-CHEK XX SCH ×5 (02:00→20:26)
[2016-06-26] MEDS: PANTOPRAZOLE (EC) 40 MG TAB PO SCH (05:44)
[2016-06-26] MEDS: CALCIUM ACETATE 667 MG CAP PO SCH ×3 (07:55→17:30)
[2016-06-26] MEDS: SEVELAMER CARBONATE 0.8 GM PKT PO SCH ×3 (07:55→17:30)
[2016-06-26 08:02] LABS: BASOPHIL # 0.1 10^3/ul (0.0-0.1); BASOPHILS % 1.4 % (0.0-2.0); EOSINOPHILS # 0.4 10^3/ul (0.0-0.5); EOSINOPHILS % 5.9 % (0.0-7.0); HEMATOCRIT 27.5 % (42.0-52.0); LYMPHOCYTES # 1.1 10^3/ul (0.8-2.9); LYMPHOCYTES % 17.2 % (15.0-51.0); MEAN CORPUSCULAR HEMOGLOBIN 32.8 pg (29.0-33.0); MEAN CORPUSCULAR HGB CONC 32.7 g/dl (32.0-37.0); MEAN CORPUSCULAR VOLUME 100.4 fl (82.0-101.0); MEAN PLATELET VOLUME 9.7 fl (7.4-10.4); MONOCYTE # 0.9 10^3/ul (0.3-0.9); MONOCYTES % 13.2 % (0.0-11.0); PLATELET COUNT 208 10^3/UL (140-415); RED BLOOD COUNT 2.74 10^6/ul (4.70-6.10); RED CELL DISTRIBUTION WIDTH 13.2 % (11.5-14.5); WHITE BLOOD COUNT 6.4 10^3/ul (4.8-10.8)
[2016-06-26 08:24] LABS: POTASSIUM 4.6 mmol/L (3.5-5.1)
[2016-06-26 08:27] LABS: CALCIUM 9.9 mg/dl (8.4-10.2); CREATININE 7.46 mg/dl (0.61-1.24)
[2016-06-26] MEDS: AMLODIPINE 5 MG TAB PO SCH ×2 (09:00→20:26)
[2016-06-26] MEDS: BENAZEPRIL 40 MG TAB PO SCH ×2 (09:00→20:26)
[2016-06-26] MEDS: ASPIRIN (EC) 81 MG TAB PO SCH (09:00)
[2016-06-26] MEDS: CLOPIDOGREL 75 MG TAB PO SCH (09:00)
[2016-06-26] MEDS: METOPROLOL 25 MG TAB PO SCH ×2 (09:00→20:25)
[2016-06-26] MEDS: FERROUS SULFATE (EC) 325 MG TAB PO SCH ×2 (09:00→20:26)
[2016-06-26] MEDS: HEPARIN 5,000 UNIT/0.5 ML SYG SC SCH ×2 (09:00→20:26)
[2016-06-26] MEDS: FAMOTIDINE 20 MG TAB PO SCH (09:00)
[2016-06-26] MEDS: CHOLECALCIFEROL 400 UNITS TAB PO SCH (09:00)
--- NOTE | 2016-06-26 11:41 | CONS ---
Date/Time of Note Date/Time of Note DATE: 06/26/16 TIME: 11:37 Assessment/Plan Assessment/Plan Chief Complaint/Hosp Course IMPRESSION: 1. Abnormal electrocardiogram, assess for acute coronary syndrome.-negative troponin x 3 2. History of recent negative stress, May 2015. 3. History of percutaneous transluminal coronary angioplasty and stent placement in 2014 to the left main left anterior descending. No current chest pain. 4. Hypertension, mildly elevated. 5. History of dyslipidemia. 6. Pleural effusion, status post thoracentesis. 7. Possible pneumonia/cough-improved 8. Diabetes mellitus. 9. End-stage renal disease, on hemodialysis. 10. Had WCT-overnight which was paced beats at approx 100 RECOMMENDATIONS: -Tele -Continue metoprolol now at 50 mg BID -Continue Benazepril -Continue norvasc/hydralazine -Continue asa/plavix/statin -Consider abx's and f/u cx data -Follow volume status with HD for volume removal -To undergo VATS/pleurodesis today? Problems: Consultation Date/Type/Reason Admit Date/Time Jun 13, 2016 at 14:48 Initial Consult Date 06/14/2016 Type of Consultation: Cardiology Reason for Consultation abnl ecg Referring Provider: EVA COX MD Exam/Review of Systems Vital Signs Vitals Vital Signs Date Time Temp Pulse Resp B/P Pulse Ox O2 Delivery O2 Flow Rate FiO2 06/26/16 11:07 97.9 71 18 138/63 96 06/26/16 05:32 2.0 28 06/25/16 08:30 Nasal Cannula Intake and Output 06/25/16 06/25/16 06/26/16 15:00 23:00 07:00 Intake Total 480 ml 680 ml Balance 480 ml 680 ml Exam Review of Systems: CONSTITUTIONAL: No fevers, chills. PULMONARY: mild sob CARDIOVASCULAR: No chest pain/palpitations GASTROINTESTINAL: No nausea/vomiting. GENITOURINARY: No hematuria/dysuria. MUSCULOSKELETAL: No myagias/arthalgias. PSYCHIATRIC: The patient denies depression. NEUROLOGIC: No weakness Constitutional: alert Psych: no complaints Head: normocephalic ENMT: mucosa pink and moist Neck: jvd (9 cm water), supple Respiratory: diminished breath sounds ( R>L) Cardiovascular: regular rate and rhythm Gastrointestinal: non-tender, soft Musculoskeletal: muscle tone (normal) Extremities: other (No focal deficits) Results Result Diagram: 06/26/16 0640 06/26/16 0640 Results 24 hrs Laboratory Tests Test 06/25/16 12:46 06/25/16 17:56 06/25/16 21:09 06/26/16 00:45 Bedside Glucose 114 109 236 H Magnesium Level 2.4 Potassium Level 4.7 Test 06/26/16 06:40 06/26/16 08:26 Anion Gap 16 Basophils # 0.1 Basophils % 1.4 Blood Urea Nitrogen 56 H Calcium Level 9.9 Carbon Dioxide Level 29 Chloride Level 98 Creatinine 7.46 H Eosinophils # 0.4 Eosinophils % 5.9 Glucose Level 133 Hematocrit 27.5 L Hemoglobin 9.0 L Lymphocytes # 1.1 Lymphocytes % 17.2 Mean Corpuscular Hemoglobin 32.8 Mean Corpuscular Hemoglobin Concent 32.7 Mean Corpuscular Volume 100.4 Mean Platelet Volume 9.7 # Monocytes # 0.9 Monocytes % 13.2 H Neutrophils # 4.0 Neutrophils % 62.0 Nucleated Red Blood Cells # 0.0 Nucleated Red Blood Cells % 0.0 Platelet Count 208 Potassium Level 4.6 Red Blood Count 2.74 L Red Cell Distribution Width 13.2 Sodium Level 138 White Blood Count 6.4 Bedside Glucose 115 Medications Medications Current Medications IV Flush (NS 10 ml) 10 ml PRN PRN IV FLUSH LINE; Start 06/13/16 at 19:00 Aspirin (Halfprin) 81 mg DAILY PO Last administered on 06/24/16 08:38; Admin Dose 81 MG; Start 06/14/16 at 09:00 Atorvastatin Calcium (Lipitor) 10 mg QHS PO Last administered on 06/25/16 21: 15; Admin Dose 10 MG; Start 06/14/16 at 21:00 Cholecalciferol (Vitamin D) 400 units DAILY PO Last administered on 06/24/16 08:38; Admin Dose 400 UNITS; Start 06/14/16 at 09:00 Clopidogrel Bisulfate (plaVIX) 75 mg DAILY PO Last administered on 06/24/16 08 :36; Admin Dose 75 MG; Start 06/14/16 at 09:00 Ferrous Sulfate (Ferrous Sulfate (Ec)) 325 mg BID PO Last administered on 21:15; Admin Dose 325 MG; Start 06/14/16 at 09:00 Hydralazine HCl (Apresoline) 10 mg Q4H PRN IV for SBP more than 170 Last administered on 06/26/16 00:27; Admin Dose 10 MG; Start 06/14/16 at 00:00 Acetaminophen (Tylenol Tab) 500 mg Q4H PRN PO PAIN AND OR ELEVATED TEMP Last administered on 06/22/16 11:29; Admin Dose 500 MG; Start 06/14/16 at 00:00 Heparin Sodium (Porcine) (Heparin (5000 Units/0.5 ml)) 5,000 unit BID SC Last administered on 06/23/16 20:30; Admin Dose 5,000 UNIT; Start 06/14/16 at 09:00 Miscellaneous Information 1 ea NOTE XX Last administered on 06/18/16 07:57; Admin Dose 1 EA; Start 06/14/16 at 00:30 Glucose (Glutose) 15 gm Q15M PRN PO DECREASED GLUCOSE; Start 06/14/16 at 00:30 Glucose (Glutose) 22.5 gm Q15M PRN PO DECREASED GLUCOSE; Start 06/14/16 at 00: 30 Dextrose (D50w Syringe) 25 ml Q15M PRN IV DECREASED GLUCOSE; Start 06/14/16 at 00:30 Dextrose (D50w Syringe) 50 ml Q15M PRN IV DECREASED GLUCOSE; Start 06/14/16 at 00:30 Glucagon (Glucagen) 1 mg Q15M PRN IM DECREASED GLUCOSE; Start 06/14/16 at 00:30 Glucose (Glutose) 15 gm Q15M PRN BUCCAL DECREASED GLUCOSE; Start 06/14/16 at 00 :30 Diagnostic Test (Pha) (Accucheck) 1 ea 02 XX Last administered on 06/23/16 02: 29; Admin Dose 1 EA; Start 06/14/16 at 02:00 Famotidine (Pepcid) 20 mg DAILY PO Last administered on 06/24/16 08:42; Admin Dose 20 MG; Start 06/14/16 at 09:00 Amlodipine Besylate (Norvasc) 5 mg BID PO Last administered on 06/25/16 21:28 ; Admin Dose 5 MG; Start 06/14/16 at 13:30 Clonidine (Catapres) 0.2 mg Q8 PRN PO Systolic >160 Last administered on 00:01; Admin Dose 0.2 MG; Start 06/14/16 at 13:00 Promethazine HCl/ Codeine (Phenergan/ Codeine) 5 ml Q4H PRN PO COUGH Last administered on 06/21/16 18:04; Admin Dose 5 ML; Start 06/15/16 at 00:00 Insulin Glargine (Lantus) 14 unit QHS SC Last administered on 06/23/16 20:31; Admin Dose 14 UNIT; Start 06/15/16 at 21:00; Status Future Hold Pantoprazole (Protonix Tab) 40 mg DAILY@06 PO Last administered on 06/25/16 06 :14; Admin Dose 40 MG; Start 06/16/16 at 06:00 Diphenhydramine HCl (Benadryl) 25 mg HS PRN PO INSOMNIA Last administered on 00:54; Admin Dose 25 MG; Start 06/15/16 at 21:30 Hydralazine HCl (Apresoline) 100 mg Q8 PO Last administered on 06/25/16 21:17 ; Admin Dose 100 MG; Start 06/19/16 at 13:00 Bisacodyl (Dulcolax) 10 mg DAILY PRN PO CONSTIPATION; Start 06/22/16 at 11:30 Benazepril HCl 40 mg 40 mg BID PO Last administered on 06/25/16 21:16; Admin Dose 40 MG; Start 06/23/16 at 21:00 Dextrose/Sodium Chloride (D5-1/2ns) 1,000 ml @ 40 mls/hr Q24H IV Last administered on 06/25/16 22:08; Admin Dose 40 MLS/HR; Start 06/25/16 at 22:00 Metoprolol Tartrate (Lopressor) 50 mg BID PO ; Start 06/26/16 at 09:00 SHERITA SCOTT Jun 26, 2016 11:41
--- NOTE | 2016-06-26 12:30 | PN ---
Date/Time of Note Date/Time of Note DATE: 06/26/16 TIME: 12:28 Assessment/Plan VTE Prophylaxis VTE Prophylaxis Intervention: heparin Lines/Catheters IV Catheter Type (from [facility]): PICC Line Central line still needed: Yes Urinary Cath still in place: No Assessment/Plan Assessment/Plan - Recurrent pleural effusions. Dr. Martinez is following in thoracic surgery consultation. Pending VATS today. - Right pleural effusion, status post thoracentesis. Dr. Dale is following in pulmonology consultation. - End-stage renal disease, continue hemodialysis. Dr. Saunders is following in nephrology consultation. - Diabetes mellitus type 2, continue Lantus and NovoLog - Hypertension. Dr. De Santiago is following and cardiology consultation. - Coronary artery disease, status post coronary artery bypass graft. Continue aspirin and Plavix. - Permanent pacemaker. No acute issues. - Dyslipidemia. Continue Lipitor. 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 Continue heparin for deep venous thrombosis prophylaxis and Protonix for peptic ulcer disease prophylaxis. Further recommendations based on clinical course. Plan of care discussed with Dr. Price. Subjective 24 Hr Interval Summary Eyes: no complaints ENT: no complaints Respiratory: no complaints Cardiovascular: no complaints Gastrointestinal: no complaints Genitourinary: no complaints Musculoskeletal: no complaints Exam/Review of Systems Vital Signs Vitals Vital Signs Date Time Temp Pulse Resp B/P Pulse Ox O2 Delivery O2 Flow Rate FiO2 06/26/16 12:06 71 06/26/16 11:07 97.9 18 138/63 96 06/26/16 05:32 2.0 28 06/25/16 08:30 Nasal Cannula Intake and Output 06/25/16 06/25/16 06/26/16 15:00 23:00 07:00 Intake Total 480 ml 680 ml Balance 480 ml 680 ml Exam Constitutional: alert, oriented Psych: no complaints Head: atraumatic Eyes: EOMI, PERRL, nl sclera ENMT: nl external ears & nose Neck: non-tender Respiratory: diminished breath sounds (More on ) Cardiovascular: nl pulses Gastrointestinal: non-tender, soft Musculoskeletal: nl extremities to inspection Extremities: normal pulses Neurological: nl mental status, nl speech Skin: nl turgor Lymph: nontender Results Result Diagram: 06/26/16 0640 06/26/16 0640 Results 24 hrs Laboratory Tests Test 06/25/16 12:46 06/25/16 17:56 06/25/16 21:09 06/26/16 00:45 Bedside Glucose 114 109 236 H Magnesium Level 2.4 Potassium Level 4.7 Test 06/26/16 06:40 06/26/16 08:26 06/26/16 12:04 Anion Gap 16 Basophils # 0.1 Basophils % 1.4 Blood Urea Nitrogen 56 H Calcium Level 9.9 Carbon Dioxide Level 29 Chloride Level 98 Creatinine 7.46 H Eosinophils # 0.4 Eosinophils % 5.9 Glucose Level 133 Hematocrit 27.5 L Hemoglobin 9.0 L Lymphocytes # 1.1 Lymphocytes % 17.2 Mean Corpuscular Hemoglobin 32.8 Mean Corpuscular Hemoglobin Concent 32.7 Mean Corpuscular Volume 100.4 Mean Platelet Volume 9.7 # Monocytes # 0.9 Monocytes % 13.2 H Neutrophils # 4.0 Neutrophils % 62.0 Nucleated Red Blood Cells # 0.0 Nucleated Red Blood Cells % 0.0 Platelet Count 208 Potassium Level 4.6 Red Blood Count 2.74 L Red Cell Distribution Width 13.2 Sodium Level 138 White Blood Count 6.4 Bedside Glucose 115 123 Medications Medications Current Medications IV Flush (NS 10 ml) 10 ml PRN PRN IV FLUSH LINE; Start 06/13/16 at 19:00 Aspirin (Halfprin) 81 mg DAILY PO Last administered on 06/24/16 08:38; Admin Dose 81 MG; Start 06/14/16 at 09:00 Atorvastatin Calcium (Lipitor) 10 mg QHS PO Last administered on 06/25/16 21: 15; Admin Dose 10 MG; Start 06/14/16 at 21:00 Cholecalciferol (Vitamin D) 400 units DAILY PO Last administered on 06/24/16 08:38; Admin Dose 400 UNITS; Start 06/14/16 at 09:00 Clopidogrel Bisulfate (plaVIX) 75 mg DAILY PO Last administered on 06/24/16 08 :36; Admin Dose 75 MG; Start 06/14/16 at 09:00 Ferrous Sulfate (Ferrous Sulfate (Ec)) 325 mg BID PO Last administered on 21:15; Admin Dose 325 MG; Start 06/14/16 at 09:00 Hydralazine HCl (Apresoline) 10 mg Q4H PRN IV for SBP more than 170 Last administered on 06/26/16 00:27; Admin Dose 10 MG; Start 06/14/16 at 00:00 Acetaminophen (Tylenol Tab) 500 mg Q4H PRN PO PAIN AND OR ELEVATED TEMP Last administered on 06/22/16 11:29; Admin Dose 500 MG; Start 06/14/16 at 00:00 Heparin Sodium (Porcine) (Heparin (5000 Units/0.5 ml)) 5,000 unit BID SC Last administered on 06/23/16 20:30; Admin Dose 5,000 UNIT; Start 06/14/16 at 09:00 Miscellaneous Information 1 ea NOTE XX Last administered on 06/18/16 07:57; Admin Dose 1 EA; Start 06/14/16 at 00:30 Glucose (Glutose) 15 gm Q15M PRN PO DECREASED GLUCOSE; Start 06/14/16 at 00:30 Glucose (Glutose) 22.5 gm Q15M PRN PO DECREASED GLUCOSE; Start 06/14/16 at 00: 30 Dextrose (D50w Syringe) 25 ml Q15M PRN IV DECREASED GLUCOSE; Start 06/14/16 at 00:30 Dextrose (D50w Syringe) 50 ml Q15M PRN IV DECREASED GLUCOSE; Start 06/14/16 at 00:30 Glucagon (Glucagen) 1 mg Q15M PRN IM DECREASED GLUCOSE; Start 06/14/16 at 00:30 Glucose (Glutose) 15 gm Q15M PRN BUCCAL DECREASED GLUCOSE; Start 06/14/16 at 00 :30 Diagnostic Test (Pha) (Accucheck) 1 ea 02 XX Last administered on 06/23/16 02: 29; Admin Dose 1 EA; Start 06/14/16 at 02:00 Famotidine (Pepcid) 20 mg DAILY PO Last administered on 06/24/16 08:42; Admin Dose 20 MG; Start 06/14/16 at 09:00 Amlodipine Besylate (Norvasc) 5 mg BID PO Last administered on 06/25/16 21:28 ; Admin Dose 5 MG; Start 06/14/16 at 13:30 Clonidine (Catapres) 0.2 mg Q8 PRN PO Systolic >160 Last administered on 00:01; Admin Dose 0.2 MG; Start 06/14/16 at 13:00 Promethazine HCl/ Codeine (Phenergan/ Codeine) 5 ml Q4H PRN PO COUGH Last administered on 06/21/16 18:04; Admin Dose 5 ML; Start 06/15/16 at 00:00 Insulin Glargine (Lantus) 14 unit QHS SC Last administered on 06/23/16 20:31; Admin Dose 14 UNIT; Start 06/15/16 at 21:00; Status Future Hold Pantoprazole (Protonix Tab) 40 mg DAILY@06 PO Last administered on 06/25/16 06 :14; Admin Dose 40 MG; Start 06/16/16 at 06:00 Diphenhydramine HCl (Benadryl) 25 mg HS PRN PO INSOMNIA Last administered on 00:54; Admin Dose 25 MG; Start 06/15/16 at 21:30 Hydralazine HCl (Apresoline) 100 mg Q8 PO Last administered on 06/25/16 21:17 ; Admin Dose 100 MG; Start 06/19/16 at 13:00 Bisacodyl (Dulcolax) 10 mg DAILY PRN PO CONSTIPATION; Start 06/22/16 at 11:30 Benazepril HCl 40 mg 40 mg BID PO Last administered on 06/25/16 21:16; Admin Dose 40 MG; Start 06/23/16 at 21:00 Dextrose/Sodium Chloride (D5-1/2ns) 1,000 ml @ 40 mls/hr Q24H IV Last administered on 06/25/16 22:08; Admin Dose 40 MLS/HR; Start 06/25/16 at 22:00 Metoprolol Tartrate (Lopressor) 50 mg BID PO ; Start 06/26/16 at 09:00 PATRICIA RUEDA Jun 26, 2016 12:30
--- NOTE | 2016-06-26 20:14 | CONS ---
Date/Time of Note Date/Time of Note DATE: 06/26/16 TIME: 20:14 Assessment/Plan Assessment/Plan Chief Complaint/Hosp Course ESRD HTN PNEUMONIA PLEURAL EFFUSION PLAN PER CARDIO NON COMPLIANCE W HD hd refused hd 3 x wk HD /THURSDAY PT REFUSED HD per pcp Problems: Consultation Date/Type/Reason Admit Date/Time Jun 13, 2016 at 14:48 Type of Consultation: renal Referring Provider: EVA COX MD 24 HR Interval Summary Constitutional: no complaints Exam/Review of Systems Vital Signs Vitals Vital Signs Date Time Temp Pulse Resp B/P Pulse Ox O2 Delivery O2 Flow Rate FiO2 06/26/16 20:05 75 06/26/16 20:00 98.2 16 195/83 93 06/26/16 17:46 2.0 06/26/16 08:15 Nasal Cannula 06/26/16 05:32 28 Intake and Output 06/25/16 06/25/16 06/26/16 15:00 23:00 07:00 Intake Total 480 ml 680 ml Balance 480 ml 680 ml Exam Neck: supple Respiratory: diminished breath sounds Cardiovascular: regular rate and rhythm Gastrointestinal: bowel sounds (+), soft Extremities: No edema Results Result Diagram: 06/26/16 0640 06/26/16 0640 Results 24 hrs Laboratory Tests Test 06/25/16 21:09 06/26/16 00:45 06/26/16 06:40 06/26/16 08:26 Bedside Glucose 236 H 115 Magnesium Level 2.4 Potassium Level 4.7 4.6 Anion Gap 16 Basophils # 0.1 Basophils % 1.4 Blood Urea Nitrogen 56 H Calcium Level 9.9 Carbon Dioxide Level 29 Chloride Level 98 Creatinine 7.46 H Eosinophils # 0.4 Eosinophils % 5.9 Glucose Level 133 Hematocrit 27.5 L Hemoglobin 9.0 L Lymphocytes # 1.1 Lymphocytes % 17.2 Mean Corpuscular Hemoglobin 32.8 Mean Corpuscular Hemoglobin Concent 32.7 Mean Corpuscular Volume 100.4 Mean Platelet Volume 9.7 # Monocytes # 0.9 Monocytes % 13.2 H Neutrophils # 4.0 Neutrophils % 62.0 Nucleated Red Blood Cells # 0.0 Nucleated Red Blood Cells % 0.0 Platelet Count 208 Red Blood Count 2.74 L Red Cell Distribution Width 13.2 Sodium Level 138 White Blood Count 6.4 Test 06/26/16 12:04 06/26/16 17:15 Bedside Glucose 123 122 Medications Medications Current Medications IV Flush (NS 10 ml) 10 ml PRN PRN IV FLUSH LINE; Start 06/13/16 at 19:00 Aspirin (Halfprin) 81 mg DAILY PO Last administered on 06/24/16 08:38; Admin Dose 81 MG; Start 06/14/16 at 09:00 Atorvastatin Calcium (Lipitor) 10 mg QHS PO Last administered on 06/25/16 21: 15; Admin Dose 10 MG; Start 06/14/16 at 21:00 Cholecalciferol (Vitamin D) 400 units DAILY PO Last administered on 06/24/16 08:38; Admin Dose 400 UNITS; Start 06/14/16 at 09:00 Clopidogrel Bisulfate (plaVIX) 75 mg DAILY PO Last administered on 06/24/16 08 :36; Admin Dose 75 MG; Start 06/14/16 at 09:00 Ferrous Sulfate (Ferrous Sulfate (Ec)) 325 mg BID PO Last administered on 21:15; Admin Dose 325 MG; Start 06/14/16 at 09:00 Hydralazine HCl (Apresoline) 10 mg Q4H PRN IV for SBP more than 170 Last administered on 06/26/16 17:31; Admin Dose 10 MG; Start 06/14/16 at 00:00 Acetaminophen (Tylenol Tab) 500 mg Q4H PRN PO PAIN AND OR ELEVATED TEMP Last administered on 06/22/16 11:29; Admin Dose 500 MG; Start 06/14/16 at 00:00 Heparin Sodium (Porcine) (Heparin (5000 Units/0.5 ml)) 5,000 unit BID SC Last administered on 06/23/16 20:30; Admin Dose 5,000 UNIT; Start 06/14/16 at 09:00 Miscellaneous Information 1 ea NOTE XX Last administered on 06/18/16 07:57; Admin Dose 1 EA; Start 06/14/16 at 00:30 Glucose (Glutose) 15 gm Q15M PRN PO DECREASED GLUCOSE; Start 06/14/16 at 00:30 Glucose (Glutose) 22.5 gm Q15M PRN PO DECREASED GLUCOSE; Start 06/14/16 at 00: 30 Dextrose (D50w Syringe) 25 ml Q15M PRN IV DECREASED GLUCOSE; Start 06/14/16 at 00:30 Dextrose (D50w Syringe) 50 ml Q15M PRN IV DECREASED GLUCOSE; Start 06/14/16 at 00:30 Glucagon (Glucagen) 1 mg Q15M PRN IM DECREASED GLUCOSE; Start 06/14/16 at 00:30 Glucose (Glutose) 15 gm Q15M PRN BUCCAL DECREASED GLUCOSE; Start 06/14/16 at 00 :30 Diagnostic Test (Pha) (Accucheck) 1 ea 02 XX Last administered on 06/23/16 02: 29; Admin Dose 1 EA; Start 06/14/16 at 02:00 Famotidine (Pepcid) 20 mg DAILY PO Last administered on 06/24/16 08:42; Admin Dose 20 MG; Start 06/14/16 at 09:00 Amlodipine Besylate (Norvasc) 5 mg BID PO Last administered on 06/25/16 21:28 ; Admin Dose 5 MG; Start 06/14/16 at 13:30 Clonidine (Catapres) 0.2 mg Q8 PRN PO Systolic >160 Last administered on 00:01; Admin Dose 0.2 MG; Start 06/14/16 at 13:00 Promethazine HCl/ Codeine (Phenergan/ Codeine) 5 ml Q4H PRN PO COUGH Last administered on 06/21/16 18:04; Admin Dose 5 ML; Start 06/15/16 at 00:00 Insulin Glargine (Lantus) 14 unit QHS SC Last administered on 06/23/16 20:31; Admin Dose 14 UNIT; Start 06/15/16 at 21:00; Status Future Hold Pantoprazole (Protonix Tab) 40 mg DAILY@06 PO Last administered on 06/25/16 06 :14; Admin Dose 40 MG; Start 06/16/16 at 06:00 Diphenhydramine HCl (Benadryl) 25 mg HS PRN PO INSOMNIA Last administered on 00:54; Admin Dose 25 MG; Start 06/15/16 at 21:30 Hydralazine HCl (Apresoline) 100 mg Q8 PO Last administered on 06/25/16 21:17 ; Admin Dose 100 MG; Start 06/19/16 at 13:00 Bisacodyl (Dulcolax) 10 mg DAILY PRN PO CONSTIPATION; Start 06/22/16 at 11:30 Benazepril HCl 40 mg 40 mg BID PO Last administered on 06/25/16 21:16; Admin Dose 40 MG; Start 06/23/16 at 21:00 Dextrose/Sodium Chloride (D5-1/2ns) 1,000 ml @ 40 mls/hr Q24H IV Last administered on 06/25/16 22:08; Admin Dose 40 MLS/HR; Start 06/25/16 at 22:00 Metoprolol Tartrate (Lopressor) 50 mg BID PO ; Start 06/26/16 at 09:00 PAOLA MOODY MD Jun 26, 2016 20:14
[2016-06-26] MEDS: ATORVASTATIN 10 MG TAB PO SCH (20:24)
[2016-06-26] MEDS: DEXTROSE 5%-0.45% NACL 1,000 ML IV SCH (22:00)
[2016-06-27] VITALS (12 sets, daily range): BP systolic 152–187; BP diastolic 57–77; PULSE 69; RESP 16–20
[2016-06-27] MEDS: ACCU-CHEK XX SCH ×5 (02:00→21:15)
[2016-06-27] MEDS: PANTOPRAZOLE (EC) 40 MG TAB PO SCH (06:00)
[2016-06-27 06:13] LABS: ADD SCAN DIFF NO
[2016-06-27 06:34] LABS: ALBUMIN 3.7 g/dl (3.3-4.9)
[2016-06-27 06:35] LABS: POTASSIUM 4.9 mmol/L (3.5-5.1)
[2016-06-27 06:37] LABS: ALBUMIN/GLOBULIN RATIO 1.15; BILIRUBIN,INDIRECT 0.1 mg/dl (0-1.1); BILIRUBIN,TOTAL 0.1 mg/dl (0.2-1.3); CREATININE 8.01 mg/dl (0.61-1.24); TOTAL PROTEIN 6.9 g/dl (6.1-8.1)
[2016-06-27 06:38] LABS: CALCIUM 9.7 mg/dl (8.4-10.2)
[2016-06-27 06:48] LABS: BASOPHIL # 0.1 10^3/ul (0.0-0.1); BASOPHILS % 1.4 % (0.0-2.0); EOSINOPHILS # 0.4 10^3/ul (0.0-0.5); EOSINOPHILS % 6.2 % (0.0-7.0); HEMATOCRIT 29.2 % (42.0-52.0); HEMOGLOBIN 9.4 g/dl (14.0-18.0); LYMPHOCYTES # 1.2 10^3/ul (0.8-2.9); LYMPHOCYTES % 16.9 % (15.0-51.0); MEAN CORPUSCULAR HEMOGLOBIN 32.3 pg (29.0-33.0); MEAN CORPUSCULAR HGB CONC 32.2 g/dl (32.0-37.0); MEAN CORPUSCULAR VOLUME 100.3 fl (82.0-101.0); MEAN PLATELET VOLUME 9.8 fl (7.4-10.4); MONOCYTE # 0.8 10^3/ul (0.3-0.9); MONOCYTES % 10.8 % (0.0-11.0); NEUTROPHIL # 4.5 10^3/ul (1.6-7.5); NEUTROPHILS % 64.4 % (39.0-77.0); PLATELET COUNT 223 10^3/UL (140-415); RED BLOOD COUNT 2.91 10^6/ul (4.70-6.10); RED CELL DISTRIBUTION WIDTH 13.2 % (11.5-14.5); WHITE BLOOD COUNT 7.1 10^3/ul (4.8-10.8)
[2016-06-27] MEDS: SEVELAMER CARBONATE 0.8 GM PKT PO SCH ×3 (07:55→17:57)
[2016-06-27] MEDS: CALCIUM ACETATE 667 MG CAP PO SCH ×3 (07:55→17:58)
[2016-06-27] MEDS: CHOLECALCIFEROL 400 UNITS TAB PO SCH (09:00)
[2016-06-27] MEDS: FERROUS SULFATE (EC) 325 MG TAB PO SCH ×2 (09:00→21:18)
[2016-06-27] MEDS: AMLODIPINE 5 MG TAB PO SCH ×2 (09:00→21:20)
[2016-06-27] MEDS: CLOPIDOGREL 75 MG TAB PO SCH (09:00)
[2016-06-27] MEDS: BENAZEPRIL 40 MG TAB PO SCH ×2 (09:00→21:19)
[2016-06-27] MEDS: HEPARIN 5,000 UNIT/0.5 ML SYG SC SCH ×2 (09:00→21:00)
[2016-06-27] MEDS: ASPIRIN (EC) 81 MG TAB PO SCH (09:00)
[2016-06-27] MEDS: METOPROLOL 25 MG TAB PO SCH ×2 (09:00→21:20)
[2016-06-27] MEDS: FAMOTIDINE 20 MG TAB PO SCH (09:00)
[2016-06-27] MEDS: hydrALAzine 20 MG INJ IV PRN (09:05)
[2016-06-27 10:49] LABS: PROTIME 13.2 Sec (12.2-14.2)
[2016-06-27 10:50] LABS: PARTIAL THROMBOPLASTIN TIME 29.5 Sec (25.0-35.0)
--- NOTE | 2016-06-27 12:33 | CONS ---
Date/Time of Note Date/Time of Note DATE: 06/27/16 TIME: 12:31 Assessment/Plan Assessment/Plan Additional Assessment/Plan 1. Abnormal electrocardiogram, assess for acute coronary syndrome.-negative troponin x 3 - no ectopy on tetle, con't med Rx 2. History of recent negative stress, May 2015 - no CP noted, no intervention planned 3. History of percutaneous transluminal coronary angioplasty and stent placement in 2014 to the left main left anterior descending. No current chest pain. 4. Hypertension, mildly elevated - good fluid status, con't to follow 5. History of dyslipidemia. 6. Pleural effusion, status post thoracentesis - better now, acute on chronic 7. Possible pneumonia/cough-improved 8. Diabetes mellitus. 9. End-stage renal disease, on hemodialysis - remove fluid as tolerated 10. Had WCT-overnight which was paced beats at approx 100 Consultation Date/Type/Reason Admit Date/Time Jun 13, 2016 at 14:48 Type of Consultation: renal Referring Provider: EVA COX MD 24 HR Interval Summary Free Text/Dictation No acute change. BP stable - in good fluid status - con't med rx . Medications reviewed. ROS: No fever, no chills, no nausea, no vomiting, no diarrhea/constipation No recent weight changes No chest pain, no PND, no orthopnea No dizziness, blurred vision No thirst, no heat or cold intolerance (SOB noted+) Exam/Review of Systems Vital Signs Vitals Vital Signs Date Time Temp Pulse Resp B/P Pulse Ox O2 Delivery O2 Flow Rate FiO2 06/27/16 12:06 69 06/27/16 11:20 98.1 20 154/57 94 06/26/16 17:46 2.0 06/26/16 08:15 Nasal Cannula 06/26/16 05:32 28 Intake and Output 06/26/16 06/26/16 06/27/16 15:00 23:00 07:00 Intake Total 360 ml 780 ml Balance 360 ml 780 ml Exam General: WN/WD/NAD, AOx 3 HEENT: Unicetric/atraumatic/EOMI (follow commands) NECK: JVD elevated, no thyromegaly Lymph: no lymphadenopathy HEART: regular with no S3, II/ systolic murmur at apex LUNGS: Coarse sounds ABD: soft, NT, ND, +BS : Intact Neuro: non focal SKIN: chronic changes EXT: trace edema Results Result Diagram: 06/27/16 0545 06/27/16 0545 Results 24 hrs Laboratory Tests Test 06/26/16 17:15 06/26/16 20:23 06/27/16 05:45 06/27/16 08:09 Bedside Glucose 122 200 142 Alanine Aminotransferase (ALT/SGPT) 28 Albumin 3.7 Albumin/Globulin Ratio 1.15 Alkaline Phosphatase 72 Anion Gap 17 H Aspartate Amino Transf (AST/SGOT) 25 Basophils # 0.1 Basophils % 1.4 Blood Urea Nitrogen 60 H Calcium Level 9.7 Carbon Dioxide Level 28 Chloride Level 100 Creatinine 8.01 H Direct Bilirubin 0.00 Eosinophils # 0.4 Eosinophils % 6.2 Globulin 3.20 Glucose Level 126 Hematocrit 29.2 L Hemoglobin 9.4 L Indirect Bilirubin 0.1 Lymphocytes # 1.2 Lymphocytes % 16.9 Mean Corpuscular Hemoglobin 32.3 Mean Corpuscular Hemoglobin Concent 32.2 Mean Corpuscular Volume 100.3 Mean Platelet Volume 9.8 Monocytes # 0.8 Monocytes % 10.8 Neutrophils # 4.5 Neutrophils % 64.4 Nucleated Red Blood Cells # 0.0 Nucleated Red Blood Cells % 0.0 Platelet Count 223 Potassium Level 4.9 Red Blood Count 2.91 L Red Cell Distribution Width 13.2 Sodium Level 140 Total Bilirubin 0.1 L Total Protein 6.9 White Blood Count 7.1 Test 06/27/16 10:00 Activated Partial Thromboplast Time 29.5 INR International Normalized Ratio 1.00 Prothrombin Time 13.2 Prothrombin Time Ratio 1.0 Medications Medications Current Medications IV Flush (NS 10 ml) 10 ml PRN PRN IV FLUSH LINE; Start 06/13/16 at 19:00 Aspirin (Halfprin) 81 mg DAILY PO Last administered on 06/24/16 08:38; Admin Dose 81 MG; Start 06/14/16 at 09:00 Atorvastatin Calcium (Lipitor) 10 mg QHS PO Last administered on 06/26/16 20: 24; Admin Dose 10 MG; Start 06/14/16 at 21:00 Cholecalciferol (Vitamin D) 400 units DAILY PO Last administered on 06/24/16 08:38; Admin Dose 400 UNITS; Start 06/14/16 at 09:00 Clopidogrel Bisulfate (plaVIX) 75 mg DAILY PO Last administered on 06/24/16 08 :36; Admin Dose 75 MG; Start 06/14/16 at 09:00 Ferrous Sulfate (Ferrous Sulfate (Ec)) 325 mg BID PO Last administered on 20:26; Admin Dose 325 MG; Start 06/14/16 at 09:00 Hydralazine HCl (Apresoline) 10 mg Q4H PRN IV for SBP more than 170 Last administered on 06/27/16 09:05; Admin Dose 10 MG; Start 06/14/16 at 00:00 Acetaminophen (Tylenol Tab) 500 mg Q4H PRN PO PAIN AND OR ELEVATED TEMP Last administered on 06/22/16 11:29; Admin Dose 500 MG; Start 06/14/16 at 00:00 Heparin Sodium (Porcine) (Heparin (5000 Units/0.5 ml)) 5,000 unit BID SC Last administered on 06/23/16 20:30; Admin Dose 5,000 UNIT; Start 06/14/16 at 09:00 Miscellaneous Information 1 ea NOTE XX Last administered on 06/18/16 07:57; Admin Dose 1 EA; Start 06/14/16 at 00:30 Glucose (Glutose) 15 gm Q15M PRN PO DECREASED GLUCOSE; Start 06/14/16 at 00:30 Glucose (Glutose) 22.5 gm Q15M PRN PO DECREASED GLUCOSE; Start 06/14/16 at 00: 30 Dextrose (D50w Syringe) 25 ml Q15M PRN IV DECREASED GLUCOSE; Start 06/14/16 at 00:30 Dextrose (D50w Syringe) 50 ml Q15M PRN IV DECREASED GLUCOSE; Start 06/14/16 at 00:30 Glucagon (Glucagen) 1 mg Q15M PRN IM DECREASED GLUCOSE; Start 06/14/16 at 00:30 Glucose (Glutose) 15 gm Q15M PRN BUCCAL DECREASED GLUCOSE; Start 06/14/16 at 00 :30 Diagnostic Test (Pha) (Accucheck) 1 ea 02 XX Last administered on 06/23/16 02: 29; Admin Dose 1 EA; Start 06/14/16 at 02:00 Famotidine (Pepcid) 20 mg DAILY PO Last administered on 06/24/16 08:42; Admin Dose 20 MG; Start 06/14/16 at 09:00 Amlodipine Besylate (Norvasc) 5 mg BID PO Last administered on 06/26/16 20:26 ; Admin Dose 5 MG; Start 06/14/16 at 13:30 Clonidine (Catapres) 0.2 mg Q8 PRN PO Systolic >160 Last administered on 00:01; Admin Dose 0.2 MG; Start 06/14/16 at 13:00 Promethazine HCl/ Codeine (Phenergan/ Codeine) 5 ml Q4H PRN PO COUGH Last administered on 06/21/16 18:04; Admin Dose 5 ML; Start 06/15/16 at 00:00 Insulin Glargine (Lantus) 14 unit QHS SC Last administered on 06/23/16 20:31; Admin Dose 14 UNIT; Start 06/15/16 at 21:00; Status Future Hold Pantoprazole (Protonix Tab) 40 mg DAILY@06 PO Last administered on 06/25/16 06 :14; Admin Dose 40 MG; Start 06/16/16 at 06:00 Diphenhydramine HCl (Benadryl) 25 mg HS PRN PO INSOMNIA Last administered on 00:54; Admin Dose 25 MG; Start 06/15/16 at 21:30 Hydralazine HCl (Apresoline) 100 mg Q8 PO Last administered on 06/26/16 20:32 ; Admin Dose 100 MG; Start 06/19/16 at 13:00 Bisacodyl (Dulcolax) 10 mg DAILY PRN PO CONSTIPATION; Start 06/22/16 at 11:30 Benazepril HCl 40 mg 40 mg BID PO Last administered on 06/26/16 20:26; Admin Dose 40 MG; Start 06/23/16 at 21:00 Dextrose/Sodium Chloride (D5-1/2ns) 1,000 ml @ 40 mls/hr Q24H IV Last administered on 06/25/16 22:08; Admin Dose 40 MLS/HR; Start 06/25/16 at 22:00 Metoprolol Tartrate (Lopressor) 50 mg BID PO Last administered on 06/26/16 20: 25; Admin Dose 50 MG; Start 06/26/16 at 09:00 CRIS BERNARD MD Jun 27, 2016 12:33
--- NOTE | 2016-06-27 14:20 | PN ---
Date/Time of Note Date/Time of Note DATE: 06/27/16 TIME: 14:17 Assessment/Plan VTE Prophylaxis VTE Prophylaxis Intervention: SCD's Lines/Catheters IV Catheter Type (from [facility]): PICC Line Central line still needed: Yes Urinary Cath still in place: No Assessment/Plan Chief Complaint/Hosp Course Assessment and plan - Recurrent pleural effusions. Dr. Martinez is following in thoracic surgery consultation. Pending VATS. Patient's surgery is postponed due to recent treatment with Plavix, which is held for now. Plan for VATS on Thursday. - Right pleural effusion, status post thoracentesis. Dr. Dale is following in pulmonology consultation. - End-stage renal disease, continue hemodialysis. Dr. Saunders is following in nephrology consultation. - Diabetes mellitus type 2, continue Lantus and NovoLog - Hypertension. Dr. De Santiago is following and cardiology consultation. - Coronary artery disease, status post coronary artery bypass graft. - Permanent pacemaker. No acute issues. - Dyslipidemia. Continue Lipitor. 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 Continue heparin for deep venous thrombosis prophylaxis and Protonix for peptic ulcer disease prophylaxis. Further recommendations based on clinical course. Plan of care discussed with Dr. Price. Problems: Subjective 24 Hr Interval Summary Free Text/Dictation No acute events overnight, patient looks comfortable. Exam/Review of Systems Vital Signs Vitals Vital Signs Date Time Temp Pulse Resp B/P Pulse Ox O2 Delivery O2 Flow Rate FiO2 06/27/16 12:06 69 06/27/16 11:20 98.1 20 154/57 94 06/27/16 08:15 Nasal Cannula 2.0 06/26/16 05:32 28 Intake and Output 06/26/16 06/26/16 06/27/16 15:00 23:00 07:00 Intake Total 360 ml 780 ml Balance 360 ml 780 ml Exam Constitutional: alert Psych: no complaints Head: atraumatic, normocephalic Eyes: nl conjunctiva ENMT: nl external ears & nose Neck: non-tender, supple Respiratory: clear to auscultation Cardiovascular: nl pulses Gastrointestinal: non-tender, soft Musculoskeletal: nl extremities to inspection Extremities: normal pulses 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4 L Indirect Bilirubin 0.1 Lymphocytes # 1.2 Lymphocytes % 16.9 Mean Corpuscular Hemoglobin 32.3 Mean Corpuscular Hemoglobin Concent 32.2 Mean Corpuscular Volume 100.3 Mean Platelet Volume 9.8 Monocytes # 0.8 Monocytes % 10.8 Neutrophils # 4.5 Neutrophils % 64.4 Nucleated Red Blood Cells # 0.0 Nucleated Red Blood Cells % 0.0 Platelet Count 223 Potassium Level 4.9 Red Blood Count 2.91 L Red Cell Distribution Width 13.2 Sodium Level 140 Total Bilirubin 0.1 L Total Protein 6.9 White Blood Count 7.1 Test 06/27/16 10:00 06/27/16 12:49 Activated Partial Thromboplast Time 29.5 INR International Normalized Ratio 1.00 Prothrombin Time 13.2 Prothrombin Time Ratio 1.0 Bedside Glucose 125 Medications Medications Current Medications IV Flush (NS 10 ml) 10 ml PRN PRN IV FLUSH LINE; Start 06/13/16 at 19:00 Aspirin (Halfprin) 81 mg DAILY PO Last administered on 06/24/16 08:38; Admin Dose 81 MG; Start 06/14/16 at 09:00 Atorvastatin Calcium (Lipitor) 10 mg QHS PO Last administered on 06/26/16 20: 24; Admin Dose 10 MG; Start 06/14/16 at 21:00 Cholecalciferol (Vitamin D) 400 units DAILY PO Last administered on 06/24/16 08:38; Admin Dose 400 UNITS; Start 06/14/16 at 09:00 Clopidogrel Bisulfate (plaVIX) 75 mg DAILY PO Last administered on 06/24/16 08 :36; Admin Dose 75 MG; Start 06/14/16 at 09:00 Ferrous Sulfate (Ferrous Sulfate (Ec)) 325 mg BID PO Last administered on 20:26; Admin Dose 325 MG; Start 06/14/16 at 09:00 Hydralazine HCl (Apresoline) 10 mg Q4H PRN IV for SBP more than 170 Last administered on 06/27/16 09:05; Admin Dose 10 MG; Start 06/14/16 at 00:00 Acetaminophen (Tylenol Tab) 500 mg Q4H PRN PO PAIN AND OR ELEVATED TEMP Last administered on 06/22/16 11:29; Admin Dose 500 MG; Start 06/14/16 at 00:00 Heparin Sodium (Porcine) (Heparin (5000 Units/0.5 ml)) 5,000 unit BID SC Last administered on 06/23/16 20:30; Admin Dose 5,000 UNIT; Start 06/14/16 at 09:00 Miscellaneous Information 1 ea NOTE XX Last administered on 06/18/16 07:57; Admin Dose 1 EA; Start 06/14/16 at 00:30 Glucose (Glutose) 15 gm Q15M PRN PO DECREASED GLUCOSE; Start 06/14/16 at 00:30 Glucose (Glutose) 22.5 gm Q15M PRN PO DECREASED GLUCOSE; Start 06/14/16 at 00: 30 Dextrose (D50w Syringe) 25 ml Q15M PRN IV DECREASED GLUCOSE; Start 06/14/16 at 00:30 Dextrose (D50w Syringe) 50 ml Q15M PRN IV DECREASED GLUCOSE; Start 06/14/16 at 00:30 Glucagon (Glucagen) 1 mg Q15M PRN IM DECREASED GLUCOSE; Start 06/14/16 at 00:30 Glucose (Glutose) 15 gm Q15M PRN BUCCAL DECREASED GLUCOSE; Start 06/14/16 at 00 :30 Diagnostic Test (Pha) (Accucheck) 1 ea 02 XX Last administered on 06/23/16 02: 29; Admin Dose 1 EA; Start 06/14/16 at 02:00 Famotidine (Pepcid) 20 mg DAILY PO Last administered on 06/24/16 08:42; Admin Dose 20 MG; Start 06/14/16 at 09:00 Amlodipine Besylate (Norvasc) 5 mg BID PO Last administered on 06/26/16 20:26 ; Admin Dose 5 MG; Start 06/14/16 at 13:30 Clonidine (Catapres) 0.2 mg Q8 PRN PO Systolic >160 Last administered on 00:01; Admin Dose 0.2 MG; Start 06/14/16 at 13:00 Promethazine HCl/ Codeine (Phenergan/ Codeine) 5 ml Q4H PRN PO COUGH Last administered on 06/21/16 18:04; Admin Dose 5 ML; Start 06/15/16 at 00:00 Insulin Glargine (Lantus) 14 unit QHS SC Last administered on 06/23/16 20:31; Admin Dose 14 UNIT; Start 06/15/16 at 21:00; Status Future Hold Pantoprazole (Protonix Tab) 40 mg DAILY@06 PO Last administered on 06/25/16 06 :14; Admin Dose 40 MG; Start 06/16/16 at 06:00 Diphenhydramine HCl (Benadryl) 25 mg HS PRN PO INSOMNIA Last administered on 00:54; Admin Dose 25 MG; Start 06/15/16 at 21:30 Hydralazine HCl (Apresoline) 100 mg Q8 PO Last administered on 06/26/16 20:32 ; Admin Dose 100 MG; Start 06/19/16 at 13:00 Bisacodyl (Dulcolax) 10 mg DAILY PRN PO CONSTIPATION; Start 06/22/16 at 11:30 Benazepril HCl 40 mg 40 mg BID PO Last administered on 06/26/16 20:26; Admin Dose 40 MG; Start 06/23/16 at 21:00 Dextrose/Sodium Chloride (D5-1/2ns) 1,000 ml @ 40 mls/hr Q24H IV Last administered on 06/25/16 22:08; Admin Dose 40 MLS/HR; Start 06/25/16 at 22:00 Metoprolol Tartrate (Lopressor) 50 mg BID PO Last administered on 06/26/16 20: 25; Admin Dose 50 MG; Start 06/26/16 at 09:00 CECILIA DAMICO Jun 27, 2016 14:20
[2016-06-27] MEDS: LEVALBUTEROL (HFA) 15 GM INHALER INH SCH ×2 (19:34)
[2016-06-27] MEDS: ATORVASTATIN 10 MG TAB PO SCH (21:18)
--- NOTE | 2016-06-27 21:19 | CONS ---
Date/Time of Note Date/Time of Note DATE: 06/27/16 TIME: 21:18 Assessment/Plan Assessment/Plan Chief Complaint/Hosp Course ESRD HTN PNEUMONIA PLEURAL EFFUSION PLAN PER CARDIO NON COMPLIANCE W HD hd refused hd 3 x wk HD T/THURSDAY PT REFUSED HD ON THURSDAY per pcp Problems: Consultation Date/Type/Reason Admit Date/Time Jun 13, 2016 at 14:48 Type of Consultation: renal Referring Provider: EVA COX MD 24 HR Interval Summary Constitutional: no complaints Exam/Review of Systems Vital Signs Vitals Vital Signs Date Time Temp Pulse Resp B/P Pulse Ox O2 Delivery O2 Flow Rate FiO2 06/27/16 20:22 69 06/27/16 20:07 98.3 16 174/75 94 06/27/16 08:15 Nasal Cannula 2.0 06/26/16 05:32 28 Intake and Output 06/26/16 06/26/16 06/27/16 15:00 23:00 07:00 Intake Total 360 ml 780 ml Balance 360 ml 780 ml Exam Respiratory: diminished breath sounds Cardiovascular: regular rate and rhythm Gastrointestinal: bowel sounds (+), soft Musculoskeletal: nl extremities to inspection Extremities: normal pulses Results Result Diagram: 06/27/16 0545 06/27/16 0545 Results 24 hrs Laboratory Tests Test 06/27/16 05:45 06/27/16 08:09 06/27/16 10:00 06/27/16 12:49 Alanine Aminotransferase (ALT/SGPT) 28 Albumin 3.7 Albumin/Globulin Ratio 1.15 Alkaline Phosphatase 72 Anion Gap 17 H Aspartate Amino Transf (AST/SGOT) 25 Basophils # 0.1 Basophils % 1.4 Blood Urea Nitrogen 60 H Calcium Level 9.7 Carbon Dioxide Level 28 Chloride Level 100 Creatinine 8.01 H Direct Bilirubin 0.00 Eosinophils # 0.4 Eosinophils % 6.2 Globulin 3.20 Glucose Level 126 Hematocrit 29.2 L Hemoglobin 9.4 L Indirect Bilirubin 0.1 Lymphocytes # 1.2 Lymphocytes % 16.9 Mean Corpuscular Hemoglobin 32.3 Mean Corpuscular Hemoglobin Concent 32.2 Mean Corpuscular Volume 100.3 Mean Platelet Volume 9.8 Monocytes # 0.8 Monocytes % 10.8 Neutrophils # 4.5 Neutrophils % 64.4 Nucleated Red Blood Cells # 0.0 Nucleated Red Blood Cells % 0.0 Platelet Count 223 Potassium Level 4.9 Red Blood Count 2.91 L Red Cell Distribution Width 13.2 Sodium Level 140 Total Bilirubin 0.1 L Total Protein 6.9 White Blood Count 7.1 Bedside Glucose 142 125 Activated Partial Thromboplast Time 29.5 INR International Normalized Ratio 1.00 Prothrombin Time 13.2 Prothrombin Time Ratio 1.0 Test 06/27/16 18:10 06/27/16 21:15 Bedside Glucose 220 188 Medications Medications Current Medications IV Flush (NS 10 ml) 10 ml PRN PRN IV FLUSH LINE; Start 06/13/16 at 19:00 Aspirin (Halfprin) 81 mg DAILY PO Last administered on 06/24/16 08:38; Admin Dose 81 MG; Start 06/14/16 at 09:00 Atorvastatin Calcium (Lipitor) 10 mg QHS PO Last administered on 06/26/16 20: 24; Admin Dose 10 MG; Start 06/14/16 at 21:00 Cholecalciferol (Vitamin D) 400 units DAILY PO Last administered on 06/24/16 08:38; Admin Dose 400 UNITS; Start 06/14/16 at 09:00 Clopidogrel Bisulfate (plaVIX) 75 mg DAILY PO Last administered on 06/24/16 08 :36; Admin Dose 75 MG; Start 06/14/16 at 09:00; Status Future Hold Ferrous Sulfate (Ferrous Sulfate (Ec)) 325 mg BID PO Last administered on 20:26; Admin Dose 325 MG; Start 06/14/16 at 09:00 Hydralazine HCl (Apresoline) 10 mg Q4H PRN IV for SBP more than 170 Last administered on 06/27/16 09:05; Admin Dose 10 MG; Start 06/14/16 at 00:00 Acetaminophen (Tylenol Tab) 500 mg Q4H PRN PO PAIN AND OR ELEVATED TEMP Last administered on 06/22/16 11:29; Admin Dose 500 MG; Start 06/14/16 at 00:00 Heparin Sodium (Porcine) (Heparin (5000 Units/0.5 ml)) 5,000 unit BID SC Last administered on 06/23/16 20:30; Admin Dose 5,000 UNIT; Start 06/14/16 at 09:00 Miscellaneous Information 1 ea NOTE XX Last administered on 06/18/16 07:57; Admin Dose 1 EA; Start 06/14/16 at 00:30 Glucose (Glutose) 15 gm Q15M PRN PO DECREASED GLUCOSE; Start 06/14/16 at 00:30 Glucose (Glutose) 22.5 gm Q15M PRN PO DECREASED GLUCOSE; Start 06/14/16 at 00: 30 Dextrose (D50w Syringe) 25 ml Q15M PRN IV DECREASED GLUCOSE; Start 06/14/16 at 00:30 Dextrose (D50w Syringe) 50 ml Q15M PRN IV DECREASED GLUCOSE; Start 06/14/16 at 00:30 Glucagon (Glucagen) 1 mg Q15M PRN IM DECREASED GLUCOSE; Start 06/14/16 at 00:30 Glucose (Glutose) 15 gm Q15M PRN BUCCAL DECREASED GLUCOSE; Start 06/14/16 at 00 :30 Diagnostic Test (Pha) (Accucheck) 1 ea 02 XX Last administered on 06/23/16 02: 29; Admin Dose 1 EA; Start 06/14/16 at 02:00 Famotidine (Pepcid) 20 mg DAILY PO Last administered on 06/24/16 08:42; Admin Dose 20 MG; Start 06/14/16 at 09:00 Amlodipine Besylate (Norvasc) 5 mg BID PO Last administered on 06/26/16 20:26 ; Admin Dose 5 MG; Start 06/14/16 at 13:30 Clonidine (Catapres) 0.2 mg Q8 PRN PO Systolic >160 Last administered on 00:01; Admin Dose 0.2 MG; Start 06/14/16 at 13:00 Promethazine HCl/ Codeine (Phenergan/ Codeine) 5 ml Q4H PRN PO COUGH Last administered on 06/21/16 18:04; Admin Dose 5 ML; Start 06/15/16 at 00:00 Insulin Glargine (Lantus) 14 unit QHS SC Last administered on 06/23/16 20:31; Admin Dose 14 UNIT; Start 06/15/16 at 21:00; Status Future Hold Pantoprazole (Protonix Tab) 40 mg DAILY@06 PO Last administered on 06/25/16 06 :14; Admin Dose 40 MG; Start 06/16/16 at 06:00 Diphenhydramine HCl (Benadryl) 25 mg HS PRN PO INSOMNIA Last administered on 00:54; Admin Dose 25 MG; Start 06/15/16 at 21:30 Hydralazine HCl (Apresoline) 100 mg Q8 PO Last administered on 06/27/16 17:59 ; Admin Dose 100 MG; Start 06/19/16 at 13:00 Bisacodyl (Dulcolax) 10 mg DAILY PRN PO CONSTIPATION; Start 06/22/16 at 11:30 Benazepril HCl 40 mg 40 mg BID PO Last administered on 06/26/16 20:26; Admin Dose 40 MG; Start 06/23/16 at 21:00 Dextrose/Sodium Chloride (D5-1/2ns) 1,000 ml @ 40 mls/hr Q24H IV Last administered on 06/25/16 22:08; Admin Dose 40 MLS/HR; Start 06/25/16 at 22:00 Metoprolol Tartrate (Lopressor) 50 mg BID PO Last administered on 06/26/16 20: 25; Admin Dose 50 MG; Start 06/26/16 at 09:00 PAOLA MOODY MD Jun 27, 2016 21:19
[2016-06-27] MEDS: DEXTROSE 5%-0.45% NACL 1,000 ML IV SCH (21:20)
[2016-06-28] VITALS (23 sets, daily range): BP systolic 118–195; BP diastolic 56–96; PULSE 69–70; RESP 12–18
[2016-06-28] MEDS: LEVALBUTEROL (HFA) 15 GM INHALER INH SCH ×3 (00:11→15:33)
[2016-06-28] MEDS: hydrALAzine 20 MG INJ IV PRN (00:15)
[2016-06-28] MEDS: ACCU-CHEK XX SCH ×5 (02:00→21:00)
[2016-06-28] MEDS: LORAZEPAM 2 MG INJ IV PRN (04:58)
[2016-06-28] MEDS: PANTOPRAZOLE (EC) 40 MG TAB PO SCH (05:02)
[2016-06-28 07:11] LABS: ADD SCAN DIFF NO
[2016-06-28 07:21] LABS: BASOPHIL # 0.1 10^3/ul (0.0-0.1); BASOPHILS % 1.3 % (0.0-2.0); EOSINOPHILS # 0.3 10^3/ul (0.0-0.5); EOSINOPHILS % 5.4 % (0.0-7.0); HEMATOCRIT 26.4 % (42.0-52.0); HEMOGLOBIN 8.4 g/dl (14.0-18.0); LYMPHOCYTES % 16.2 % (15.0-51.0); MEAN CORPUSCULAR HEMOGLOBIN 31.9 pg (29.0-33.0); MEAN CORPUSCULAR HGB CONC 31.8 g/dl (32.0-37.0); MEAN CORPUSCULAR VOLUME 100.4 fl (82.0-101.0); MEAN PLATELET VOLUME 9.7 fl (7.4-10.4); MONOCYTE # 0.6 10^3/ul (0.3-0.9); MONOCYTES % 8.9 % (0.0-11.0); NEUTROPHIL # 4.3 10^3/ul (1.6-7.5); NEUTROPHILS % 67.7 % (39.0-77.0); PLATELET COUNT 208 10^3/UL (140-415); RED BLOOD COUNT 2.63 10^6/ul (4.70-6.10); RED CELL DISTRIBUTION WIDTH 13.1 % (11.5-14.5); WHITE BLOOD COUNT 6.3 10^3/ul (4.8-10.8)
[2016-06-28 07:38] LABS: POTASSIUM 5.3 mmol/L (3.5-5.1)
[2016-06-28 07:41] LABS: CREATININE 8.51 mg/dl (0.61-1.24)
[2016-06-28 07:42] LABS: CALCIUM 9.5 mg/dl (8.4-10.2)
[2016-06-28] MEDS: HEPARIN 5,000 UNIT/0.5 ML SYG SC SCH ×3 (09:00→21:15)
[2016-06-28] MEDS: BENAZEPRIL 40 MG TAB PO SCH ×2 (09:00→21:04)
[2016-06-28] MEDS: METOPROLOL 25 MG TAB PO SCH ×2 (09:00→21:05)
[2016-06-28] MEDS: ASPIRIN (EC) 81 MG TAB PO SCH (09:27)
[2016-06-28] MEDS: SEVELAMER CARBONATE 0.8 GM PKT PO SCH ×3 (09:27→18:37)
[2016-06-28] MEDS: CALCIUM ACETATE 667 MG CAP PO SCH ×3 (09:28→18:37)
[2016-06-28] MEDS: CHOLECALCIFEROL 400 UNITS TAB PO SCH (09:28)
[2016-06-28] MEDS: FERROUS SULFATE (EC) 325 MG TAB PO SCH ×2 (09:28→21:03)
[2016-06-28] MEDS: FAMOTIDINE 20 MG TAB PO SCH (09:28)
[2016-06-28] MEDS: AMLODIPINE 5 MG TAB PO SCH ×2 (09:28→21:05)
--- NOTE | 2016-06-28 12:44 | CONS ---
Date/Time of Note Date/Time of Note DATE: 06/28/16 TIME: 12:43 Assessment/Plan Assessment/Plan Chief Complaint/Hosp Course ESRD HTN PNEUMONIA better PLEURAL EFFUSION PLAN PER CARDIO NON COMPLIANCE W HD hd refused hd 3 x wk HD T/THURSDAY PT REFUSED HD ON THURSDAY per pcp fluid res clonidine po Problems: Consultation Date/Type/Reason Admit Date/Time Jun 13, 2016 at 14:48 Type of Consultation: renal Referring Provider: EVA COX MD 24 HR Interval Summary Constitutional: no complaints Exam/Review of Systems Vital Signs Vitals Vital Signs Date Time Temp Pulse Resp B/P Pulse Ox O2 Delivery O2 Flow Rate FiO2 06/28/16 12:25 70 06/28/16 11:51 98.0 18 163/69 98 06/27/16 08:15 Nasal Cannula 2.0 06/26/16 05:32 28 Intake and Output 06/27/16 06/27/16 06/28/16 15:00 23:00 07:00 Intake Total 680 ml 480 ml Balance 680 ml 480 ml Exam Respiratory: clear to auscultation Cardiovascular: regular rate and rhythm Gastrointestinal: soft Musculoskeletal: nl extremities to inspection Extremities: normal pulses Results Result Diagram: 06/28/16 0630 06/28/16 0630 Results 24 hrs Laboratory Tests Test 06/27/16 12:49 06/27/16 18:10 06/27/16 21:15 06/28/16 06:30 Bedside Glucose 125 220 188 Anion Gap 16 Basophils # 0.1 Basophils % 1.3 Blood Urea Nitrogen 63 H Calcium Level 9.5 Carbon Dioxide Level 28 Chloride Level 99 Creatinine 8.51 H Eosinophils # 0.3 Eosinophils % 5.4 Glucose Level 155 Hematocrit 26.4 L Hemoglobin 8.4 L Lymphocytes # 1.0 Lymphocytes % 16.2 Mean Corpuscular Hemoglobin 31.9 Mean Corpuscular Hemoglobin Concent 31.8 L Mean Corpuscular Volume 100.4 Mean Platelet Volume 9.7 Monocytes # 0.6 Monocytes % 8.9 Neutrophils # 4.3 Neutrophils % 67.7 Nucleated Red Blood Cells # 0.0 Nucleated Red Blood Cells % 0.0 Platelet Count 208 Potassium Level 5.3 H Red Blood Count 2.63 L Red Cell Distribution Width 13.1 Sodium Level 138 White Blood Count 6.3 Test 06/28/16 08:19 Bedside Glucose 145 Medications Medications Current Medications IV Flush (NS 10 ml) 10 ml PRN PRN IV FLUSH LINE; Start 06/13/16 at 19:00 Aspirin (Halfprin) 81 mg DAILY PO Last administered on 06/28/16 09:27; Admin Dose 81 MG; Start 06/14/16 at 09:00 Atorvastatin Calcium (Lipitor) 10 mg QHS PO Last administered on 06/27/16 21: 18; Admin Dose 10 MG; Start 06/14/16 at 21:00 Cholecalciferol (Vitamin D) 400 units DAILY PO Last administered on 06/28/16 09:28; Admin Dose 400 UNITS; Start 06/14/16 at 09:00 Clopidogrel Bisulfate (plaVIX) 75 mg DAILY PO Last administered on 06/24/16 08 :36; Admin Dose 75 MG; Start 06/14/16 at 09:00; Status Future Hold Ferrous Sulfate (Ferrous Sulfate (Ec)) 325 mg BID PO Last administered on 09:28; Admin Dose 325 MG; Start 06/14/16 at 09:00 Acetaminophen (Tylenol Tab) 500 mg Q4H PRN PO PAIN AND OR ELEVATED TEMP Last administered on 06/22/16 11:29; Admin Dose 500 MG; Start 06/14/16 at 00:00 Heparin Sodium (Porcine) (Heparin (5000 Units/0.5 ml)) 5,000 unit BID SC Last administered on 06/23/16 20:30; Admin Dose 5,000 UNIT; Start 06/14/16 at 09:00 Miscellaneous Information 1 ea NOTE XX Last administered on 06/18/16 07:57; Admin Dose 1 EA; Start 06/14/16 at 00:30 Glucose (Glutose) 15 gm Q15M PRN PO DECREASED GLUCOSE; Start 06/14/16 at 00:30 Glucose (Glutose) 22.5 gm Q15M PRN PO DECREASED GLUCOSE; Start 06/14/16 at 00: 30 Dextrose (D50w Syringe) 25 ml Q15M PRN IV DECREASED GLUCOSE; Start 06/14/16 at 00:30 Dextrose (D50w Syringe) 50 ml Q15M PRN IV DECREASED GLUCOSE; Start 06/14/16 at 00:30 Glucagon (Glucagen) 1 mg Q15M PRN IM DECREASED GLUCOSE; Start 06/14/16 at 00:30 Glucose (Glutose) 15 gm Q15M PRN BUCCAL DECREASED GLUCOSE; Start 06/14/16 at 00 :30 Diagnostic Test (Pha) (Accucheck) 1 ea 02 XX Last administered on 06/23/16 02: 29; Admin Dose 1 EA; Start 06/14/16 at 02:00 Famotidine (Pepcid) 20 mg DAILY PO Last administered on 06/28/16 09:28; Admin Dose 20 MG; Start 06/14/16 at 09:00 Amlodipine Besylate (Norvasc) 5 mg BID PO Last administered on 06/28/16 09:28 ; Admin Dose 5 MG; Start 06/14/16 at 13:30 Clonidine (Catapres) 0.2 mg Q8 PRN PO Systolic >160 Last administered on 02:29; Admin Dose 0.2 MG; Start 06/14/16 at 13:00 Promethazine HCl/ Codeine (Phenergan/ Codeine) 5 ml Q4H PRN PO COUGH Last administered on 06/21/16 18:04; Admin Dose 5 ML; Start 06/15/16 at 00:00 Insulin Glargine (Lantus) 14 unit QHS SC Last administered on 06/23/16 20:31; Admin Dose 14 UNIT; Start 06/15/16 at 21:00; Status Future Hold Pantoprazole (Protonix Tab) 40 mg DAILY@06 PO Last administered on 06/28/16 05 :02; Admin Dose 40 MG; Start 06/16/16 at 06:00 Diphenhydramine HCl (Benadryl) 25 mg HS PRN PO INSOMNIA Last administered on 00:54; Admin Dose 25 MG; Start 06/15/16 at 21:30 Hydralazine HCl (Apresoline) 100 mg Q8 PO Last administered on 06/28/16 05:04 ; Admin Dose 100 MG; Start 06/19/16 at 13:00 Bisacodyl (Dulcolax) 10 mg DAILY PRN PO CONSTIPATION; Start 06/22/16 at 11:30 Benazepril HCl 40 mg 40 mg BID PO Last administered on 06/27/16 21:19; Admin Dose 40 MG; Start 2/20/17 at 21:00 Dextrose/Sodium Chloride (D5-1/2ns) 1,000 ml @ 40 mls/hr Q24H IV Last administered on 06/27/16 21:20; Admin Dose 40 MLS/HR; Start 06/25/16 at 22:00 Metoprolol Tartrate (Lopressor) 50 mg BID PO Last administered on 06/27/16 21: 20; Admin Dose 50 MG; Start 06/26/16 at 09:00 Hydralazine HCl (Apresoline) 20 mg Q4H PRN IV for SBP more than 170; Start at 05:00 Ondansetron HCl (Zofran Inj) 4 mg Q6H PRN IV NAUSEA AND/OR VOMITING; Start at 05:00 Lorazepam (Ativan) 1 mg Q6H PRN IV ANXIETY Last administered on 06/28/16 04:58 ; Admin Dose 1 MG; Start 06/28/16 at 05:00 Clonidine (Catapres) 0.1 mg QID PO ; Start 06/28/16 at 13:00 PAOLA MOODY MD Jun 28, 2016 12:44
--- NOTE | 2016-06-28 13:44 | PN ---
Date/Time of Note Date/Time of Note DATE: 06/28/16 TIME: 13:35 Assessment/Plan VTE Prophylaxis VTE Prophylaxis Intervention: heparin, other Lines/Catheters IV Catheter Type (from [facility]): PICC Line Central line still needed: Yes Urinary Cath still in place: No Assessment/Plan Assessment/Plan - Recurrent pleural effusions. - per Dr. Martinez in thoracic surgery consultation. Pending VATS. Patient 's surgery is postponed due to recent treatment with Plavix, which is held for now. Plan for VATS on Thursday. - Right pleural effusion, status post thoracentesis. - per Dr. Dale in pulmonology consultation. - End-stage renal disease, continue hemodialysis. - per Dr. Saunders in nephrology consultation. - Diabetes mellitus type 2, continue Lantus and NovoLog - Hypertension. - per Dr. De Santiago in cardiology consultation. - Coronary artery disease, status post coronary artery bypass graft. - Permanent pacemaker. No acute issues. - Dyslipidemia. Continue Lipitor. 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 Continue heparin for deep venous thrombosis prophylaxis and Protonix for peptic ulcer disease prophylaxis. Further recommendations based on clinical course. Plan of care discussed with Dr. Price. Subjective 24 Hr Interval Summary Free Text/Dictation NAD, for HD today, VATS pending dw staff. Eyes: no complaints ENT: no complaints Respiratory: shortness of breath Cardiovascular: no complaints Gastrointestinal: no complaints Genitourinary: no complaints Musculoskeletal: no complaints Skin: no complaints Neurologic: no complaints Endocrine: no complaints Lymphatic: adenopathy Psychological: nl mood/affect Immunologic: no complaints Exam/Review of Systems Vital Signs Vitals Vital Signs Date Time Temp Pulse Resp B/P Pulse Ox O2 Delivery O2 Flow Rate FiO2 06/28/16 13:25 70 06/28/16 11:51 98.0 18 163/69 98 06/27/16 08:15 Nasal Cannula 2.0 06/26/16 05:32 28 Intake and Output 06/27/16 06/27/16 06/28/16 15:00 23:00 07:00 Intake Total 680 ml 480 ml Balance 680 ml 480 ml Exam Constitutional: alert, well developed Psych: nl mood/affect Head: atraumatic Eyes: EOMI ENMT: nl external ears & nose Neck: non-tender Respiratory: clear to auscultation Cardiovascular: nl pulses Gastrointestinal: non-tender, soft Musculoskeletal: nl extremities to inspection Neurological: nl mental status Skin: nl turgor Lymph: nontender Results Result Diagram: 06/28/16 0630 06/28/16 0630 Results 24 hrs Laboratory Tests Test 06/27/16 18:10 06/27/16 21:15 06/28/16 06:30 06/28/16 08:19 Bedside Glucose 220 188 145 Anion Gap 16 Basophils # 0.1 Basophils % 1.3 Blood Urea Nitrogen 63 H Calcium Level 9.5 Carbon Dioxide Level 28 Chloride Level 99 Creatinine 8.51 H Eosinophils # 0.3 Eosinophils % 5.4 Glucose Level 155 Hematocrit 26.4 L Hemoglobin 8.4 L Lymphocytes # 1.0 Lymphocytes % 16.2 Mean Corpuscular Hemoglobin 31.9 Mean Corpuscular Hemoglobin Concent 31.8 L Mean Corpuscular Volume 100.4 Mean Platelet Volume 9.7 Monocytes # 0.6 Monocytes % 8.9 Neutrophils # 4.3 Neutrophils % 67.7 Nucleated Red Blood Cells # 0.0 Nucleated Red Blood Cells % 0.0 Platelet Count 208 Potassium Level 5.3 H Red Blood Count 2.63 L Red Cell Distribution Width 13.1 Sodium Level 138 White Blood Count 6.3 Test 06/28/16 12:39 Bedside Glucose 210 Medications Medications Current Medications IV Flush (NS 10 ml) 10 ml PRN PRN IV FLUSH LINE; Start 06/13/16 at 19:00 Aspirin (Halfprin) 81 mg DAILY PO Last administered on 06/28/16 09:27; Admin Dose 81 MG; Start 06/14/16 at 09:00 Atorvastatin Calcium (Lipitor) 10 mg QHS PO Last administered on 06/27/16 21: 18; Admin Dose 10 MG; Start 06/14/16 at 21:00 Cholecalciferol (Vitamin D) 400 units DAILY PO Last administered on 06/28/16 09:28; Admin Dose 400 UNITS; Start 06/14/16 at 09:00 Clopidogrel Bisulfate (plaVIX) 75 mg DAILY PO Last administered on 06/24/16 08 :36; Admin Dose 75 MG; Start 06/14/16 at 09:00; Status Future Hold Ferrous Sulfate (Ferrous Sulfate (Ec)) 325 mg BID PO Last administered on 09:28; Admin Dose 325 MG; Start 06/14/16 at 09:00 Acetaminophen (Tylenol Tab) 500 mg Q4H PRN PO PAIN AND OR ELEVATED TEMP Last administered on 06/22/16 11:29; Admin Dose 500 MG; Start 06/14/16 at 00:00 Heparin Sodium (Porcine) (Heparin (5000 Units/0.5 ml)) 5,000 unit BID SC Last administered on 06/23/16 20:30; Admin Dose 5,000 UNIT; Start 06/14/16 at 09:00 Miscellaneous Information 1 ea NOTE XX Last administered on 06/18/16 07:57; Admin Dose 1 EA; Start 06/14/16 at 00:30 Glucose (Glutose) 15 gm Q15M PRN PO DECREASED GLUCOSE; Start 06/14/16 at 00:30 Glucose (Glutose) 22.5 gm Q15M PRN PO DECREASED GLUCOSE; Start 06/14/16 at 00: 30 Dextrose (D50w Syringe) 25 ml Q15M PRN IV DECREASED GLUCOSE; Start 06/14/16 at 00:30 Dextrose (D50w Syringe) 50 ml Q15M PRN IV DECREASED GLUCOSE; Start 06/14/16 at 00:30 Glucagon (Glucagen) 1 mg Q15M PRN IM DECREASED GLUCOSE; Start 06/14/16 at 00:30 Glucose (Glutose) 15 gm Q15M PRN BUCCAL DECREASED GLUCOSE; Start 06/14/16 at 00 :30 Diagnostic Test (Pha) (Accucheck) 1 ea 02 XX Last administered on 06/23/16 02: 29; Admin Dose 1 EA; Start 06/14/16 at 02:00 Famotidine (Pepcid) 20 mg DAILY PO Last administered on 06/28/16 09:28; Admin Dose 20 MG; Start 06/14/16 at 09:00 Amlodipine Besylate (Norvasc) 5 mg BID PO Last administered on 06/28/16 09:28 ; Admin Dose 5 MG; Start 06/14/16 at 13:30 Clonidine (Catapres) 0.2 mg Q8 PRN PO Systolic >160 Last administered on 02:29; Admin Dose 0.2 MG; Start 06/14/16 at 13:00 Promethazine HCl/ Codeine (Phenergan/ Codeine) 5 ml Q4H PRN PO COUGH Last administered on 06/21/16 18:04; Admin Dose 5 ML; Start 06/15/16 at 00:00 Insulin Glargine (Lantus) 14 unit QHS SC Last administered on 06/23/16 20:31; Admin Dose 14 UNIT; Start 06/15/16 at 21:00; Status Future Hold Pantoprazole (Protonix Tab) 40 mg DAILY@06 PO Last administered on 06/28/16 05 :02; Admin Dose 40 MG; Start 06/16/16 at 06:00 Diphenhydramine HCl (Benadryl) 25 mg HS PRN PO INSOMNIA Last administered on 00:54; Admin Dose 25 MG; Start 06/15/16 at 21:30 Hydralazine HCl (Apresoline) 100 mg Q8 PO Last administered on 06/28/16 05:04 ; Admin Dose 100 MG; Start 06/19/16 at 13:00 Bisacodyl (Dulcolax) 10 mg DAILY PRN PO CONSTIPATION; Start 06/22/16 at 11:30 Benazepril HCl 40 mg 40 mg BID PO Last administered on 06/27/16 21:19; Admin Dose 40 MG; Start 06/23/16 at 21:00 Dextrose/Sodium Chloride (D5-1/2ns) 1,000 ml @ 40 mls/hr Q24H IV Last administered on 06/27/16 21:20; Admin Dose 40 MLS/HR; Start 06/25/16 at 22:00 Metoprolol Tartrate (Lopressor) 50 mg BID PO Last administered on 06/27/16 21: 20; Admin Dose 50 MG; Start 06/26/16 at 09:00 Hydralazine HCl (Apresoline) 20 mg Q4H PRN IV for SBP more than 170; Start at 05:00 Ondansetron HCl (Zofran Inj) 4 mg Q6H PRN IV NAUSEA AND/OR VOMITING; Start at 05:00 Lorazepam (Ativan) 1 mg Q6H PRN IV ANXIETY Last administered on 06/28/16 04:58 ; Admin Dose 1 MG; Start 06/28/16 at 05:00 Clonidine (Catapres) 0.1 mg QID PO ; Start 06/28/16 at 13:00 Miscellaneous Information (* Miscellaneous Pharmacy Order) HYPOGLYCEMIA PROTOCOL w... ONCE ONCE XX ; Start 06/28/16 at 13:30; Stop 06/28/16 at 13:31; Status UNV Diagnostic Test (Pha) (Accucheck) 1 ea 02 XX ; Start 06/29/16 at 02:00; Status VICENTEV PATRICIA RUEDA Jun 28, 2016 13:43
--- NOTE | 2016-06-28 14:51 | CONS ---
Date/Time of Note Date/Time of Note DATE: 06/28/16 TIME: 14:50 Assessment/Plan Assessment/Plan Additional Assessment/Plan 1. Abnormal electrocardiogram, assess for acute coronary syndrome.-negative troponin x 3 - no ectopy on tetle, con't med Rx 2. History of recent negative stress, May 2015 - no CP noted, no intervention planned - No CP now 3. History of percutaneous transluminal coronary angioplasty and stent placement in 2014 to the left main left anterior descending. No current chest pain. 4. Hypertension, mildly elevated - good fluid status, con't to follow 5. History of dyslipidemia. 6. Pleural effusion, status post thoracentesis - better now, acute on chronic 7. Possible pneumonia/cough-improved 8. Diabetes mellitus. 9. End-stage renal disease, on hemodialysis - remove fluid as tolerated - HD today 10. Had WCT-overnight which was paced beats at approx 100 - sinus on tele now Consultation Date/Type/Reason Admit Date/Time Jun 13, 2016 at 14:48 Type of Consultation: renal Referring Provider: EVA COX MD 24 HR Interval Summary Free Text/Dictation NO acute change. stable on te - sinus. HD today. ROS: No fever, no chills, no nausea, no vomiting, no diarrhea/constipation No recent weight changes No chest pain, no PND, no orthopnea No dizziness, blurred vision No thirst, no heat or cold intolerance (better breathing) Exam/Review of Systems Vital Signs Vitals Vital Signs Date Time Temp Pulse Resp B/P Pulse Ox O2 Delivery O2 Flow Rate FiO2 06/28/16 14:20 70 16 06/28/16 11:51 98.0 163/69 98 06/27/16 08:15 Nasal Cannula 2.0 06/26/16 05:32 28 Intake and Output 06/27/16 06/27/16 06/28/16 15:00 23:00 07:00 Intake Total 680 ml 480 ml Balance 680 ml 480 ml Exam General: WN/WD/NAD, AOx 3 HEENT: Unicetric/atraumatic/EOMI (follow commands) NECK: JVD elevated, no thyromegaly Lymph: no lymphadenopathy HEART: regular with no S3, II/ systolic murmur at apex LUNGS: Coarse sounds, decreased at base ABD: soft, NT, ND, +BS : Intact Neuro: non focal SKIN: chronic changes EXT: trace edema Results Result Diagram: 06/28/16 0630 06/28/16 0630 Results 24 hrs Laboratory Tests Test 06/27/16 18:10 06/27/16 21:15 06/28/16 06:30 06/28/16 08:19 Bedside Glucose 220 188 145 Anion Gap 16 Basophils # 0.1 Basophils % 1.3 Blood Urea Nitrogen 63 H Calcium Level 9.5 Carbon Dioxide Level 28 Chloride Level 99 Creatinine 8.51 H Eosinophils # 0.3 Eosinophils % 5.4 Glucose Level 155 Hematocrit 26.4 L Hemoglobin 8.4 L Lymphocytes # 1.0 Lymphocytes % 16.2 Mean Corpuscular Hemoglobin 31.9 Mean Corpuscular Hemoglobin Concent 31.8 L Mean Corpuscular Volume 100.4 Mean Platelet Volume 9.7 Monocytes # 0.6 Monocytes % 8.9 Neutrophils # 4.3 Neutrophils % 67.7 Nucleated Red Blood Cells # 0.0 Nucleated Red Blood Cells % 0.0 Platelet Count 208 Potassium Level 5.3 H Red Blood Count 2.63 L Red Cell Distribution Width 13.1 Sodium Level 138 White Blood Count 6.3 Test 06/28/16 12:39 Bedside Glucose 210 Medications Medications Current Medications IV Flush (NS 10 ml) 10 ml PRN PRN IV FLUSH LINE; Start 06/13/16 at 19:00 Aspirin (Halfprin) 81 mg DAILY PO Last administered on 06/28/16 09:27; Admin Dose 81 MG; Start 06/14/16 at 09:00 Atorvastatin Calcium (Lipitor) 10 mg QHS PO Last administered on 06/27/16 21: 18; Admin Dose 10 MG; Start 06/14/16 at 21:00 Cholecalciferol (Vitamin D) 400 units DAILY PO Last administered on 06/28/16 09:28; Admin Dose 400 UNITS; Start 06/14/16 at 09:00 Clopidogrel Bisulfate (plaVIX) 75 mg DAILY PO Last administered on 06/24/16 08 :36; Admin Dose 75 MG; Start 06/14/16 at 09:00; Status Future Hold Ferrous Sulfate (Ferrous Sulfate (Ec)) 325 mg BID PO Last administered on 09:28; Admin Dose 325 MG; Start 06/14/16 at 09:00 Acetaminophen (Tylenol Tab) 500 mg Q4H PRN PO PAIN AND OR ELEVATED TEMP Last administered on 06/22/16 11:29; Admin Dose 500 MG; Start 06/14/16 at 00:00 Heparin Sodium (Porcine) (Heparin (5000 Units/0.5 ml)) 5,000 unit BID SC Last administered on 06/23/16 20:30; Admin Dose 5,000 UNIT; Start 06/14/16 at 09:00 Miscellaneous Information 1 ea NOTE XX Last administered on 06/18/16 07:57; Admin Dose 1 EA; Start 06/14/16 at 00:30 Glucose (Glutose) 15 gm Q15M PRN PO DECREASED GLUCOSE; Start 06/14/16 at 00:30 Glucose (Glutose) 22.5 gm Q15M PRN PO DECREASED GLUCOSE; Start 06/14/16 at 00: 30 Dextrose (D50w Syringe) 25 ml Q15M PRN IV DECREASED GLUCOSE; Start 06/14/16 at 00:30 Dextrose (D50w Syringe) 50 ml Q15M PRN IV DECREASED GLUCOSE; Start 06/14/16 at 00:30 Glucagon (Glucagen) 1 mg Q15M PRN IM DECREASED GLUCOSE; Start 06/14/16 at 00:30 Glucose (Glutose) 15 gm Q15M PRN BUCCAL DECREASED GLUCOSE; Start 06/14/16 at 00 :30 Diagnostic Test (Pha) (Accucheck) 1 ea 02 XX Last administered on 06/23/16 02: 29; Admin Dose 1 EA; Start 06/14/16 at 02:00 Famotidine (Pepcid) 20 mg DAILY PO Last administered on 06/28/16 09:28; Admin Dose 20 MG; Start 06/14/16 at 09:00 Amlodipine Besylate (Norvasc) 5 mg BID PO Last administered on 06/28/16 09:28 ; Admin Dose 5 MG; Start 06/14/16 at 13:30 Clonidine (Catapres) 0.2 mg Q8 PRN PO Systolic >160 Last administered on 02:29; Admin Dose 0.2 MG; Start 06/14/16 at 13:00 Promethazine HCl/ Codeine (Phenergan/ Codeine) 5 ml Q4H PRN PO COUGH Last administered on 06/21/16 18:04; Admin Dose 5 ML; Start 06/15/16 at 00:00 Insulin Glargine (Lantus) 14 unit QHS SC Last administered on 06/23/16 20:31; Admin Dose 14 UNIT; Start 06/15/16 at 21:00; Status Future Hold Pantoprazole (Protonix Tab) 40 mg DAILY@06 PO Last administered on 06/28/16 05 :02; Admin Dose 40 MG; Start 06/16/16 at 06:00 Diphenhydramine HCl (Benadryl) 25 mg HS PRN PO INSOMNIA Last administered on 00:54; Admin Dose 25 MG; Start 06/15/16 at 21:30 Hydralazine HCl (Apresoline) 100 mg Q8 PO Last administered on 06/28/16 05:04 ; Admin Dose 100 MG; Start 06/19/16 at 13:00 Bisacodyl (Dulcolax) 10 mg DAILY PRN PO CONSTIPATION; Start 06/22/16 at 11:30 Benazepril HCl 40 mg 40 mg BID PO Last administered on 06/27/16 21:19; Admin Dose 40 MG; Start 06/23/16 at 21:00 Dextrose/Sodium Chloride (D5-1/2ns) 1,000 ml @ 40 mls/hr Q24H IV Last administered on 06/27/16 21:20; Admin Dose 40 MLS/HR; Start 06/25/16 at 22:00 Metoprolol Tartrate (Lopressor) 50 mg BID PO Last administered on 06/27/16 21: 20; Admin Dose 50 MG; Start 06/26/16 at 09:00 Hydralazine HCl (Apresoline) 20 mg Q4H PRN IV for SBP more than 170; Start at 05:00 Ondansetron HCl (Zofran Inj) 4 mg Q6H PRN IV NAUSEA AND/OR VOMITING; Start at 05:00 Lorazepam (Ativan) 1 mg Q6H PRN IV ANXIETY Last administered on 06/28/16 04:58 ; Admin Dose 1 MG; Start 06/28/16 at 05:00 Clonidine (Catapres) 0.1 mg QID PO Last administered on 06/28/16 13:00; Admin Dose 0.1 MG; Start 06/28/16 at 13:00 CRIS BERNARD MD Jun 28, 2016 14:51
[2016-06-28] MEDS: INSULIN ASPART [NOVOLOG] 3 ML PEN SC SCH ×2 (17:49→21:00)
[2016-06-28] MEDS: ATORVASTATIN 10 MG TAB PO SCH (21:03)
[2016-06-28] MEDS: DEXTROSE 5%-0.45% NACL 1,000 ML IV SCH (21:31)
[2016-06-29] VITALS (12 sets, daily range): BP systolic 128–199; BP diastolic 53–84; PULSE 69; RESP 16–18
[2016-06-29] MEDS: ACCU-CHEK XX SCH ×5 (02:00→21:00)
[2016-06-29] MEDS ORDERED: ACCU-CHEK XX SCH (02:00)
[2016-06-29] MEDS: PANTOPRAZOLE (EC) 40 MG TAB PO SCH (06:07)
[2016-06-29 07:16] LABS: ADD SCAN DIFF NO
[2016-06-29 07:26] LABS: BASOPHIL # 0.1 10^3/ul (0.0-0.1); BASOPHILS % 1.9 % (0.0-2.0); EOSINOPHILS # 0.4 10^3/ul (0.0-0.5); EOSINOPHILS % 8.2 % (0.0-7.0); HEMATOCRIT 29.3 % (42.0-52.0); HEMOGLOBIN 9.9 g/dl (14.0-18.0); LYMPHOCYTES # 0.8 10^3/ul (0.8-2.9); LYMPHOCYTES % 14.8 % (15.0-51.0); MEAN CORPUSCULAR HEMOGLOBIN 33.1 pg (29.0-33.0); MEAN CORPUSCULAR HGB CONC 33.8 g/dl (32.0-37.0); MEAN PLATELET VOLUME 9.9 fl (7.4-10.4); MONOCYTE # 0.5 10^3/ul (0.3-0.9); MONOCYTES % 10.3 % (0.0-11.0); NEUTROPHIL # 3.4 10^3/ul (1.6-7.5); NEUTROPHILS % 64.6 % (39.0-77.0); PLATELET COUNT 197 10^3/UL (140-415); RED BLOOD COUNT 2.99 10^6/ul (4.70-6.10); RED CELL DISTRIBUTION WIDTH 12.8 % (11.5-14.5); WHITE BLOOD COUNT 5.2 10^3/ul (4.8-10.8)
[2016-06-29 07:31] LABS: POTASSIUM 5.1 mmol/L (3.5-5.1)
[2016-06-29 07:34] LABS: CREATININE 5.45 mg/dl (0.61-1.24)
[2016-06-29 07:35] LABS: CALCIUM 9.5 mg/dl (8.4-10.2)
[2016-06-29] MEDS: SEVELAMER CARBONATE 0.8 GM PKT PO SCH ×3 (07:55→17:21)
[2016-06-29] MEDS: LEVALBUTEROL (HFA) 15 GM INHALER INH SCH ×3 (08:00→16:17)
[2016-06-29] MEDS: ONDANSETRON 4 MG INJ IV PRN (08:13)
[2016-06-29] MEDS: CALCIUM ACETATE 667 MG CAP PO SCH ×3 (08:21→17:21)
[2016-06-29] MEDS: CHOLECALCIFEROL 400 UNITS TAB PO SCH (08:21)
[2016-06-29] MEDS: BENAZEPRIL 40 MG TAB PO SCH ×2 (08:22→22:02)
[2016-06-29] MEDS: FAMOTIDINE 20 MG TAB PO SCH (08:22)
[2016-06-29] MEDS: FERROUS SULFATE (EC) 325 MG TAB PO SCH ×2 (08:22→22:01)
[2016-06-29] MEDS: ASPIRIN (EC) 81 MG TAB PO SCH (08:22)
[2016-06-29] MEDS: AMLODIPINE 5 MG TAB PO SCH ×2 (08:23→22:02)
[2016-06-29] MEDS: METOPROLOL 25 MG TAB PO SCH ×2 (08:24→22:03)
[2016-06-29] MEDS: HEPARIN 5,000 UNIT/0.5 ML SYG SC SCH ×2 (08:24→21:00)
[2016-06-29] MEDS: INSULIN ASPART [NOVOLOG] 3 ML PEN SC SCH ×4 (08:43→21:00)
--- NOTE | 2016-06-29 13:12 | CONS ---
Date/Time of Note Date/Time of Note DATE: 06/29/16 TIME: 13:11 Assessment/Plan Assessment/Plan Chief Complaint/Hosp Course ESRD HTN PNEUMONIA better PLEURAL EFFUSION PLAN PER CARDIO NON COMPLIANCE W HD hd refused hd 3 x wk HD T/THURSDAY PT REFUSED HD ON THURSDAY per pcp fluid res bp meds Problems: Consultation Date/Type/Reason Admit Date/Time Jun 13, 2016 at 14:48 Type of Consultation: renal Referring Provider: EVA COX MD 24 HR Interval Summary Constitutional: no complaints Exam/Review of Systems Vital Signs Vitals Vital Signs Date Time Temp Pulse Resp B/P Pulse Ox O2 Delivery O2 Flow Rate FiO2 06/29/16 12:25 69 06/29/16 11:59 98.6 18 137/53 98 06/27/16 08:15 Nasal Cannula 2.0 06/26/16 05:32 28 Intake and Output 06/28/16 06/28/16 06/29/16 14:59 22:59 06:59 Intake Total 500 ml 700 ml 850 ml Output Total 1940 ml Balance -1440 ml 700 ml 850 ml Exam Respiratory: clear to auscultation Cardiovascular: regular rate and rhythm Gastrointestinal: non-tender, soft Musculoskeletal: nl extremities to inspection Extremities: normal pulses Results Result Diagram: 06/29/16 0611 06/29/16 0611 Results 24 hrs Laboratory Tests Test 06/28/16 17:12 06/28/16 21:28 06/29/16 06:11 06/29/16 08:20 Bedside Glucose 166 162 184 Anion Gap 16 Basophils # 0.1 Basophils % 1.9 Blood Urea Nitrogen 38 #H Calcium Level 9.5 Carbon Dioxide Level 28 Chloride Level 96 L Creatinine 5.45 #H Eosinophils # 0.4 Eosinophils % 8.2 H Glucose Level 193 Hematocrit 29.3 L Hemoglobin 9.9 L Lymphocytes # 0.8 Lymphocytes % 14.8 L Mean Corpuscular Hemoglobin 33.1 H Mean Corpuscular Hemoglobin Concent 33.8 Mean Corpuscular Volume 98.0 Mean Platelet Volume 9.9 Monocytes # 0.5 Monocytes % 10.3 Neutrophils # 3.4 Neutrophils % 64.6 Nucleated Red Blood Cells # 0.0 Nucleated Red Blood Cells % 0.0 Platelet Count 197 Potassium Level 5.1 Red Blood Count 2.99 L Red Cell Distribution Width 12.8 Sodium Level 135 White Blood Count 5.2 Test 06/29/16 12:31 Bedside Glucose 238 H Medications Medications Current Medications IV Flush (NS 10 ml) 10 ml PRN PRN IV FLUSH LINE; Start 06/13/16 at 19:00 Aspirin (Halfprin) 81 mg DAILY PO Last administered on 06/29/16 08:22; Admin Dose 81 MG; Start 06/14/16 at 09:00 Atorvastatin Calcium (Lipitor) 10 mg QHS PO Last administered on 06/28/16 21: 03; Admin Dose 10 MG; Start 06/14/16 at 21:00 Cholecalciferol (Vitamin D) 400 units DAILY PO Last administered on 06/29/16 08:21; Admin Dose 400 UNITS; Start 06/14/16 at 09:00 Clopidogrel Bisulfate (plaVIX) 75 mg DAILY PO Last administered on 06/24/16 08 :36; Admin Dose 75 MG; Start 06/14/16 at 09:00; Status Future Hold Ferrous Sulfate (Ferrous Sulfate (Ec)) 325 mg BID PO Last administered on 08:22; Admin Dose 325 MG; Start 06/14/16 at 09:00 Acetaminophen (Tylenol Tab) 500 mg Q4H PRN PO PAIN AND OR ELEVATED TEMP Last administered on 06/22/16 11:29; Admin Dose 500 MG; Start 06/14/16 at 00:00 Heparin Sodium (Porcine) (Heparin (5000 Units/0.5 ml)) 5,000 unit BID SC Last administered on 06/28/16 21:15; Admin Dose 5,000 UNIT; Start 06/14/16 at 09:00 Miscellaneous Information 1 ea NOTE XX Last administered on 06/18/16 07:57; Admin Dose 1 EA; Start 06/14/16 at 00:30 Glucose (Glutose) 15 gm Q15M PRN PO DECREASED GLUCOSE; Start 06/14/16 at 00:30 Glucose (Glutose) 22.5 gm Q15M PRN PO DECREASED GLUCOSE; Start 06/14/16 at 00: 30 Dextrose (D50w Syringe) 25 ml Q15M PRN IV DECREASED GLUCOSE; Start 06/14/16 at 00:30 Dextrose (D50w Syringe) 50 ml Q15M PRN IV DECREASED GLUCOSE; Start 06/14/16 at 00:30 Glucagon (Glucagen) 1 mg Q15M PRN IM DECREASED GLUCOSE; Start 06/14/16 at 00:30 Glucose (Glutose) 15 gm Q15M PRN BUCCAL DECREASED GLUCOSE; Start 06/14/16 at 00 :30 Diagnostic Test (Pha) (Accucheck) 1 ea 02 XX Last administered on 06/23/16 02: 29; Admin Dose 1 EA; Start 06/14/16 at 02:00 Famotidine (Pepcid) 20 mg DAILY PO Last administered on 06/29/16 08:22; Admin Dose 20 MG; Start 06/14/16 at 09:00 Amlodipine Besylate (Norvasc) 5 mg BID PO Last administered on 06/29/16 08:23 ; Admin Dose 5 MG; Start 06/14/16 at 13:30 Clonidine (Catapres) 0.2 mg Q8 PRN PO Systolic >160 Last administered on 02:29; Admin Dose 0.2 MG; Start 06/14/16 at 13:00 Promethazine HCl/ Codeine (Phenergan/ Codeine) 5 ml Q4H PRN PO COUGH Last administered on 06/21/16 18:04; Admin Dose 5 ML; Start 06/15/16 at 00:00 Insulin Glargine (Lantus) 14 unit QHS SC Last administered on 06/23/16 20:31; Admin Dose 14 UNIT; Start 06/15/16 at 21:00; Status Future Hold Pantoprazole (Protonix Tab) 40 mg DAILY@06 PO Last administered on 06/29/16 06 :07; Admin Dose 40 MG; Start 06/16/16 at 06:00 Diphenhydramine HCl (Benadryl) 25 mg HS PRN PO INSOMNIA Last administered on 00:54; Admin Dose 25 MG; Start 06/15/16 at 21:30 Hydralazine HCl (Apresoline) 100 mg Q8 PO Last administered on 06/29/16 06:08 ; Admin Dose 100 MG; Start 06/19/16 at 13:00 Bisacodyl (Dulcolax) 10 mg DAILY PRN PO CONSTIPATION; Start 06/22/16 at 11:30 Benazepril HCl 40 mg 40 mg BID PO Last administered on 06/29/16 08:22; Admin Dose 40 MG; Start 06/23/16 at 21:00 Dextrose/Sodium Chloride (D5-1/2ns) 1,000 ml @ 40 mls/hr Q24H IV Last administered on 06/28/16 21:31; Admin Dose 40 MLS/HR; Start 06/25/16 at 22:00 Metoprolol Tartrate (Lopressor) 50 mg BID PO Last administered on 06/29/16 08: 24; Admin Dose 50 MG; Start 06/26/16 at 09:00 Hydralazine HCl (Apresoline) 20 mg Q4H PRN IV for SBP more than 170; Start at 05:00 Ondansetron HCl (Zofran Inj) 4 mg Q6H PRN IV NAUSEA AND/OR VOMITING Last administered on 06/29/16 08:13; Admin Dose 4 MG; Start 06/28/16 at 05:00 Lorazepam (Ativan) 1 mg Q6H PRN IV ANXIETY Last administered on 06/28/16 04:58 ; Admin Dose 1 MG; Start 06/28/16 at 05:00 Clonidine (Catapres) 0.1 mg QID PO Last administered on 06/29/16 08:23; Admin Dose 0.1 MG; Start 06/28/16 at 13:00 PAOLA MOODY MD Jun 29, 2016 13:12
--- NOTE | 2016-06-29 16:07 | CONS ---
Date/Time of Note Date/Time of Note DATE: 06/29/16 TIME: 16:05 Assessment/Plan Assessment/Plan Additional Assessment/Plan 1. Abnormal electrocardiogram, assess for acute coronary syndrome.-negative troponin x 3 - no ectopy on tetle, con't med Rx 2. History of recent negative stress, May 2015 - no CP noted, no intervention planned - No CP now 3. History of percutaneous transluminal coronary angioplasty and stent placement in 2014 to the left main left anterior descending. No current chest pain. 4. Hypertension, mildly elevated - good fluid status, con't to follow 5. History of dyslipidemia. 6. Pleural effusion, status post thoracentesis - better now, acute on chronic - BETTER NOW. 7. Possible pneumonia/cough-improved- onanti-bx 8. Diabetes mellitus. 9. End-stage renal disease, on hemodialysis - remove fluid as tolerated - HD yesterday - tolerated well 10. Had WCT-overnight which was paced beats at approx 100 - sinus on tele now Consultation Date/Type/Reason Admit Date/Time Jun 13, 2016 at 14:48 Type of Consultation: renal Referring Provider: EAV COX MD 24 HR Interval Summary Free Text/Dictation NO acute change - better fluid status - will adjust Rx now ROS: No fever, no chills, no nausea, no vomiting, no diarrhea/constipation No recent weight changes No chest pain, no PND, no orthopnea No dizziness, blurred vision No thirst, no heat or cold intolerance Exam/Review of Systems Vital Signs Vitals Vital Signs Date Time Temp Pulse Resp B/P Pulse Ox O2 Delivery O2 Flow Rate FiO2 06/29/16 12:25 69 06/29/16 11:59 98.6 18 137/53 98 06/27/16 08:15 Nasal Cannula 2.0 06/26/16 05:32 28 Intake and Output 06/28/16 06/28/16 06/29/16 15:00 23:00 07:00 Intake Total 500 ml 700 ml 850 ml Output Total 1940 ml Balance -1440 ml 700 ml 850 ml Exam General: WN/WD/NAD, AOx 3 HEENT: Unicetric/atraumatic/EOMI (follow commands) NECK: JVD elevated, no thyromegaly Lymph: no lymphadenopathy HEART: regular with no S3, II/ systolic murmur at apex LUNGS: Coarse sounds ABD: soft, NT, ND, +BS : Intact Neuro: non focal SKIN: chronic changes EXT: trace edema Results Result Diagram: 06/29/16 0611 06/29/16 0611 Results 24 hrs Laboratory Tests Test 06/28/16 17:12 06/28/16 21:28 06/29/16 06:11 06/29/16 08:20 Bedside Glucose 166 162 184 Anion Gap 16 Basophils # 0.1 Basophils % 1.9 Blood Urea Nitrogen 38 #H Calcium Level 9.5 Carbon Dioxide Level 28 Chloride Level 96 L Creatinine 5.45 #H Eosinophils # 0.4 Eosinophils % 8.2 H Glucose Level 193 Hematocrit 29.3 L Hemoglobin 9.9 L Lymphocytes # 0.8 Lymphocytes % 14.8 L Mean Corpuscular Hemoglobin 33.1 H Mean Corpuscular Hemoglobin Concent 33.8 Mean Corpuscular Volume 98.0 Mean Platelet Volume 9.9 Monocytes # 0.5 Monocytes % 10.3 Neutrophils # 3.4 Neutrophils % 64.6 Nucleated Red Blood Cells # 0.0 Nucleated Red Blood Cells % 0.0 Platelet Count 197 Potassium Level 5.1 Red Blood Count 2.99 L Red Cell Distribution Width 12.8 Sodium Level 135 White Blood Count 5.2 Test 06/29/16 12:31 Bedside Glucose 238 H Medications Medications Current Medications IV Flush (NS 10 ml) 10 ml PRN PRN IV FLUSH LINE; Start 06/13/16 at 19:00 Aspirin (Halfprin) 81 mg DAILY PO Last administered on 06/29/16 08:22; Admin Dose 81 MG; Start 06/14/16 at 09:00 Atorvastatin Calcium (Lipitor) 10 mg QHS PO Last administered on 06/28/16 21: 03; Admin Dose 10 MG; Start 06/14/16 at 21:00 Cholecalciferol (Vitamin D) 400 units DAILY PO Last administered on 06/29/16 08:21; Admin Dose 400 UNITS; Start 06/14/16 at 09:00 Clopidogrel Bisulfate (plaVIX) 75 mg DAILY PO Last administered on 06/24/16 08 :36; Admin Dose 75 MG; Start 06/14/16 at 09:00; Status Future Hold Ferrous Sulfate (Ferrous Sulfate (Ec)) 325 mg BID PO Last administered on 08:22; Admin Dose 325 MG; Start 06/14/16 at 09:00 Acetaminophen (Tylenol Tab) 500 mg Q4H PRN PO PAIN AND OR ELEVATED TEMP Last administered on 06/22/16 11:29; Admin Dose 500 MG; Start 06/14/16 at 00:00 Heparin Sodium (Porcine) (Heparin (5000 Units/0.5 ml)) 5,000 unit BID SC Last administered on 06/28/16 21:15; Admin Dose 5,000 UNIT; Start 06/14/16 at 09:00 Miscellaneous Information 1 ea NOTE XX Last administered on 06/18/16 07:57; Admin Dose 1 EA; Start 06/14/16 at 00:30 Glucose (Glutose) 15 gm Q15M PRN PO DECREASED GLUCOSE; Start 06/14/16 at 00:30 Glucose (Glutose) 22.5 gm Q15M PRN PO DECREASED GLUCOSE; Start 06/14/16 at 00: 30 Dextrose (D50w Syringe) 25 ml Q15M PRN IV DECREASED GLUCOSE; Start 06/14/16 at 00:30 Dextrose (D50w Syringe) 50 ml Q15M PRN IV DECREASED GLUCOSE; Start 06/14/16 at 00:30 Glucagon (Glucagen) 1 mg Q15M PRN IM DECREASED GLUCOSE; Start 06/14/16 at 00:30 Glucose (Glutose) 15 gm Q15M PRN BUCCAL DECREASED GLUCOSE; Start 06/14/16 at 00 :30 Diagnostic Test (Pha) (Accucheck) 1 ea 02 XX Last administered on 06/23/16 02: 29; Admin Dose 1 EA; Start 06/14/16 at 02:00 Famotidine (Pepcid) 20 mg DAILY PO Last administered on 06/29/16 08:22; Admin Dose 20 MG; Start 06/14/16 at 09:00 Amlodipine Besylate (Norvasc) 5 mg BID PO Last administered on 06/29/16 08:23 ; Admin Dose 5 MG; Start 06/14/16 at 13:30 Clonidine (Catapres) 0.2 mg Q8 PRN PO Systolic >160 Last administered on 02:29; Admin Dose 0.2 MG; Start 06/14/16 at 13:00 Promethazine HCl/ Codeine (Phenergan/ Codeine) 5 ml Q4H PRN PO COUGH Last administered on 06/21/16 18:04; Admin Dose 5 ML; Start 06/15/16 at 00:00 Insulin Glargine (Lantus) 14 unit QHS SC Last administered on 06/23/16 20:31; Admin Dose 14 UNIT; Start 06/15/16 at 21:00; Status Future Hold Pantoprazole (Protonix Tab) 40 mg DAILY@06 PO Last administered on 06/29/16 06 :07; Admin Dose 40 MG; Start 06/16/16 at 06:00 Diphenhydramine HCl (Benadryl) 25 mg HS PRN PO INSOMNIA Last administered on 00:54; Admin Dose 25 MG; Start 06/15/16 at 21:30 Hydralazine HCl (Apresoline) 100 mg Q8 PO Last administered on 06/29/16 06:08 ; Admin Dose 100 MG; Start 06/19/16 at 13:00 Bisacodyl (Dulcolax) 10 mg DAILY PRN PO CONSTIPATION; Start 06/22/16 at 11:30 Benazepril HCl 40 mg 40 mg BID PO Last administered on 06/29/16 08:22; Admin Dose 40 MG; Start 06/23/16 at 21:00 Dextrose/Sodium Chloride (D5-1/2ns) 1,000 ml @ 40 mls/hr Q24H IV Last administered on 06/28/16 21:31; Admin Dose 40 MLS/HR; Start 06/25/16 at 22:00 Metoprolol Tartrate (Lopressor) 50 mg BID PO Last administered on 06/29/16 08: 24; Admin Dose 50 MG; Start 06/26/16 at 09:00 Hydralazine HCl (Apresoline) 20 mg Q4H PRN IV for SBP more than 170; Start at 05:00 Ondansetron HCl (Zofran Inj) 4 mg Q6H PRN IV NAUSEA AND/OR VOMITING Last administered on 06/29/16 08:13; Admin Dose 4 MG; Start 06/28/16 at 05:00 Lorazepam (Ativan) 1 mg Q6H PRN IV ANXIETY Last administered on 06/28/16 04:58 ; Admin Dose 1 MG; Start 06/28/16 at 05:00 Clonidine (Catapres) 0.1 mg QID PO Last administered on 06/29/16t 13:34; Admin Dose 0.1 MG; Start 06/28/16 at 13:00 CRIS BERNARD MD Jun 29, 2016 16:07
[2016-06-29] MEDS: SOD CHLORIDE 0.45% 1,000 ML IV SCH (18:57)
[2016-06-29] MEDS: ATORVASTATIN 10 MG TAB PO SCH (22:01)
[2016-06-30] VITALS (16 sets, daily range): BP systolic 118–173; BP diastolic 54–75; PULSE 69–72; RESP 14–22
[2016-06-30] MEDS: ACCU-CHEK XX SCH ×5 (02:00→21:00)
[2016-06-30] MEDS: PANTOPRAZOLE (EC) 40 MG TAB PO SCH (05:39)
[2016-06-30 06:52] LABS: ADD SCAN DIFF NO
[2016-06-30 07:07] LABS: BASOPHIL # 0.1 10^3/ul (0.0-0.1); BASOPHILS % 1.7 % (0.0-2.0); EOSINOPHILS # 0.4 10^3/ul (0.0-0.5); EOSINOPHILS % 7.5 % (0.0-7.0); HEMATOCRIT 27.3 % (42.0-52.0); HEMOGLOBIN 9.1 g/dl (14.0-18.0); LYMPHOCYTES % 17.8 % (15.0-51.0); MEAN CORPUSCULAR HEMOGLOBIN 32.9 pg (29.0-33.0); MEAN CORPUSCULAR HGB CONC 33.3 g/dl (32.0-37.0); MEAN CORPUSCULAR VOLUME 98.6 fl (82.0-101.0); MEAN PLATELET VOLUME 10.1 fl (7.4-10.4); MONOCYTE # 0.6 10^3/ul (0.3-0.9); MONOCYTES % 10.3 % (0.0-11.0); NEUTROPHIL # 3.7 10^3/ul (1.6-7.5); NEUTROPHILS % 62.5 % (39.0-77.0); PLATELET COUNT 201 10^3/UL (140-415); RED BLOOD COUNT 2.77 10^6/ul (4.70-6.10); RED CELL DISTRIBUTION WIDTH 12.5 % (11.5-14.5); WHITE BLOOD COUNT 5.8 10^3/ul (4.8-10.8)
[2016-06-30 07:14] LABS: CREATININE 6.7 mg/dl (0.61-1.24)
[2016-06-30 07:15] LABS: CALCIUM 9.9 mg/dl (8.4-10.2)
[2016-06-30] MEDS: CALCIUM ACETATE 667 MG CAP PO SCH ×3 (07:55→17:35)
[2016-06-30] MEDS: SEVELAMER CARBONATE 0.8 GM PKT PO SCH ×3 (07:55→17:35)
[2016-06-30] MEDS: LEVALBUTEROL (HFA) 15 GM INHALER INH SCH ×3 (08:00→16:00)
[2016-06-30] MEDS: CHOLECALCIFEROL 400 UNITS TAB PO SCH (09:00)
[2016-06-30] MEDS: ASPIRIN (EC) 81 MG TAB PO SCH (09:00)
[2016-06-30] MEDS: AMLODIPINE 5 MG TAB PO SCH ×2 (09:00→20:51)
[2016-06-30] MEDS: HEPARIN 5,000 UNIT/0.5 ML SYG SC SCH ×2 (09:00→22:37)
[2016-06-30] MEDS: BENAZEPRIL 40 MG TAB PO SCH ×2 (09:00→20:51)
[2016-06-30] MEDS: FERROUS SULFATE (EC) 325 MG TAB PO SCH ×2 (09:00→20:50)
[2016-06-30] MEDS: METOPROLOL 25 MG TAB PO SCH ×2 (09:18→20:51)
[2016-06-30] MEDS: INSULIN ASPART [NOVOLOG] 3 ML PEN SC SCH ×4 (09:32→21:00)
--- NOTE | 2016-06-30 10:07 | CONS ---
Date/Time of Note Date/Time of Note DATE: 06/30/16 TIME: 10:06 Assessment/Plan Assessment/Plan Additional Assessment/Plan 1. Abnormal electrocardiogram, assess for acute coronary syndrome.-negative troponin x 3 - no ectopy on tetle, con't med Rx 2. History of recent negative stress, May 2015 - no CP noted, no intervention planned - No CP now 3. History of percutaneous transluminal coronary angioplasty and stent placement in 2014 to the left main left anterior descending. No current chest pain. 4. Hypertension, mildly elevated - good fluid status, con't to follow - BETTER now. 5. History of dyslipidemia. 6. Pleural effusion, status post thoracentesis - better now, acute on chronic - primary follows. 7. Possible pneumonia/cough-improved- onanti-bx 8. Diabetes mellitus. 9. End-stage renal disease, on hemodialysis - remove fluid as tolerated - HD well tolerated 10. Had WCT-now sinus - sinus on tele now Consultation Date/Type/Reason Admit Date/Time Jun 13, 2016 at 14:48 Type of Consultation: renal Referring Provider: EVA COX MD 24 HR Interval Summary Free Text/Dictation NO acute change - better overall- tolerating HD well ROS: No fever, no chills, no nausea, no vomiting, no diarrhea/constipation No recent weight changes No chest pain, no PND, no orthopnea No dizziness, blurred vision No thirst, no heat or cold intolerance Exam/Review of Systems Vital Signs Vitals Vital Signs Date Time Temp Pulse Resp B/P Pulse Ox O2 Delivery O2 Flow Rate FiO2 06/30/16 08:10 69 06/30/16 08:00 97.8 15 141/65 96 Room Air 06/27/16 08:15 2.0 Intake and Output 06/29/16 06/29/16 06/30/16 15:00 23:00 07:00 Intake Total 700 ml 1050 ml Balance 700 ml 1050 ml Exam General: WN/WD/NAD, AOx 3 HEENT: Unicetric/atraumatic/EOMI (follow commands) NECK: JVD elevated, no thyromegaly Lymph: no lymphadenopathy HEART: regular with no S3, II/ systolic murmur at apex, PACER LUNGS: Coarse sounds ABD: soft, NT, ND, +BS : Intact Neuro: non focal SKIN: chronic changes EXT: trace edema Results Result Diagram: 06/30/16 0542 06/30/16 0542 Results 24 hrs Laboratory Tests Test 06/29/16 12:31 06/29/16 18:05 06/29/16 21:57 06/30/16 05:42 Bedside Glucose 238 H 139 173 Anion Gap 14 Basophils # 0.1 Basophils % 1.7 Blood Urea Nitrogen 50 H Calcium Level 9.9 Carbon Dioxide Level 30 Chloride Level 94 L Creatinine 6.70 H Eosinophils # 0.4 Eosinophils % 7.5 H Glucose Level 238 H Hematocrit 27.3 L Hemoglobin 9.1 L Lymphocytes # 1.0 Lymphocytes % 17.8 Mean Corpuscular Hemoglobin 32.9 Mean Corpuscular Hemoglobin Concent 33.3 Mean Corpuscular Volume 98.6 Mean Platelet Volume 10.1 Monocytes # 0.6 Monocytes % 10.3 Neutrophils # 3.7 Neutrophils % 62.5 Nucleated Red Blood Cells # 0.0 Nucleated Red Blood Cells % 0.0 Platelet Count 201 Potassium Level 5.0 Red Blood Count 2.77 L Red Cell Distribution Width 12.5 Sodium Level 133 L White Blood Count 5.8 Test 06/30/16 08:14 Bedside Glucose 227 H Medications Medications Current Medications IV Flush (NS 10 ml) 10 ml PRN PRN IV FLUSH LINE; Start 06/13/16 at 19:00 Aspirin (Halfprin) 81 mg DAILY PO Last administered on 06/29/16 08:22; Admin Dose 81 MG; Start 06/14/16 at 09:00 Atorvastatin Calcium (Lipitor) 10 mg QHS PO Last administered on 06/29/16 22: 01; Admin Dose 10 MG; Start 06/14/16 at 21:00 Cholecalciferol (Vitamin D) 400 units DAILY PO Last administered on 06/29/16 08:21; Admin Dose 400 UNITS; Start 06/14/16 at 09:00 Clopidogrel Bisulfate (plaVIX) 75 mg DAILY PO Last administered on 06/24/16 08 :36; Admin Dose 75 MG; Start 06/14/16 at 09:00; Status Future Hold Ferrous Sulfate (Ferrous Sulfate (Ec)) 325 mg BID PO Last administered on 22:01; Admin Dose 325 MG; Start 06/14/16 at 09:00 Acetaminophen (Tylenol Tab) 500 mg Q4H PRN PO PAIN AND OR ELEVATED TEMP Last administered on 06/22/16 11:29; Admin Dose 500 MG; Start 06/14/16 at 00:00 Heparin Sodium (Porcine) (Heparin (5000 Units/0.5 ml)) 5,000 unit BID SC Last administered on 06/28/16 21:15; Admin Dose 5,000 UNIT; Start 06/14/16 at 09:00 Miscellaneous Information 1 ea NOTE XX Last administered on 06/18/16 07:57; Admin Dose 1 EA; Start 06/14/16 at 00:30 Glucose (Glutose) 15 gm Q15M PRN PO DECREASED GLUCOSE; Start 06/14/16 at 00:30 Glucose (Glutose) 22.5 gm Q15M PRN PO DECREASED GLUCOSE; Start 06/14/16 at 00: 30 Dextrose (D50w Syringe) 25 ml Q15M PRN IV DECREASED GLUCOSE; Start 06/14/16 at 00:30 Dextrose (D50w Syringe) 50 ml Q15M PRN IV DECREASED GLUCOSE; Start 06/14/16 at 00:30 Glucagon (Glucagen) 1 mg Q15M PRN IM DECREASED GLUCOSE; Start 06/14/16 at 00:30 Glucose (Glutose) 15 gm Q15M PRN BUCCAL DECREASED GLUCOSE; Start 06/14/16 at 00 :30 Diagnostic Test (Pha) (Accucheck) 1 ea 02 XX Last administered on 06/23/16 02: 29; Admin Dose 1 EA; Start 06/14/16 at 02:00 Amlodipine Besylate (Norvasc) 5 mg BID PO Last administered on 06/29/16 22:02 ; Admin Dose 5 MG; Start 06/14/16 at 13:30 Clonidine (Catapres) 0.2 mg Q8 PRN PO Systolic >160 Last administered on 02:29; Admin Dose 0.2 MG; Start 06/14/16 at 13:00 Promethazine HCl/ Codeine (Phenergan/ Codeine) 5 ml Q4H PRN PO COUGH Last administered on 06/21/16 18:04; Admin Dose 5 ML; Start 06/15/16 at 00:00 Insulin Glargine (Lantus) 14 unit QHS SC Last administered on 06/23/16 20:31; Admin Dose 14 UNIT; Start 06/15/16 at 21:00; Status Future Hold Pantoprazole (Protonix Tab) 40 mg DAILY@06 PO Last administered on 06/30/16 05 :39; Admin Dose 40 MG; Start 06/16/16 at 06:00 Diphenhydramine HCl (Benadryl) 25 mg HS PRN PO INSOMNIA Last administered on 00:54; Admin Dose 25 MG; Start 06/15/16 at 21:30 Hydralazine HCl (Apresoline) 100 mg Q8 PO Last administered on 06/30/16 05:42 ; Admin Dose 100 MG; Start 06/19/16 at 13:00 Bisacodyl (Dulcolax) 10 mg DAILY PRN PO CONSTIPATION; Start 06/22/16 at 11:30 Benazepril HCl (Lotensin) 40 mg BID PO Last administered on 06/29/16 22:02; Admin Dose 40 MG; Start 06/23/16 at 21:00 Metoprolol Tartrate (Lopressor) 50 mg BID PO Last administered on 06/30/16 09: 18; Admin Dose 50 MG; Start 06/26/16 at 09:00 Hydralazine HCl (Apresoline) 20 mg Q4H PRN IV for SBP more than 170; Start at 05:00 Ondansetron HCl (Zofran Inj) 4 mg Q6H PRN IV NAUSEA AND/OR VOMITING Last administered on 06/29/16 08:13; Admin Dose 4 MG; Start 06/28/16 at 05:00 Lorazepam (Ativan) 1 mg Q6H PRN IV ANXIETY Last administered on 06/28/16 04:58 ; Admin Dose 1 MG; Start 06/28/16 at 05:00 Clonidine 0.1 mg 0.1 mg QID PO Last administered on 06/29/16 22:03; Admin Dose 0.1 MG; Start 06/28/16 at 13:00 Sodium Chloride (1/2 NS) 1,000 ml @ 40 mls/hr Q24H IV Last administered on 18:57; Admin Dose 40 MLS/HR; Start 06/29/16 at 18:00 CRIS BERNARD MD Jun 30, 2016 10:07
[2016-06-30] MEDS ORDERED: MINERAL OIL LIGHT 10 ML VIAL ONE (13:46)
[2016-06-30] MEDS ORDERED: BUPIVACAINE 0.5%/EPI (SDV) 30 ML INJ ONE (14:52)
[2016-06-30] MEDS ORDERED: LIDOCAINE 0.5% (MDV) 50 ML INJ ONE (14:53)
[2016-06-30] MEDS ORDERED: ROCURONIUM 50 MG INJ ONE (15:01)
[2016-06-30] MEDS ORDERED: PROPOFOL 20 ML ONE (15:01)
[2016-06-30] MEDS ORDERED: MEPERIDINE 100 MG INJ ONE (15:01)
[2016-06-30] MEDS ORDERED: SUCCINYLCHOLINE CHLORIDE 100 MG/5 ML SYG IV ONE (15:01)
[2016-06-30] MEDS ORDERED: LIDOCAINE 2% (SDV) 5 ML INJ ONE (15:01)
[2016-06-30] MEDS ORDERED: NEOSTIGMINE 3 MG/3 ML SYRINGE ONE ×2 (15:01→18:11)
[2016-06-30] MEDS ORDERED: GLYCOPYRROLATE 0.4 MG INJ ONE (15:01)
--- NOTE | 2016-06-30 15:40 | HPN ---
Date/Time of Note Date/Time of Note DATE: 06/30/16 TIME: 15:40 Interval H&P Admission Note Pt. seen H&P reviewed: No system changes LILIA FELIZ MD Jun 30, 2016 15:40
[2016-06-30] MEDS ORDERED: FENTAnyl 50 MCG/ML VIAL ONE (16:00)
--- NOTE | 2016-06-30 17:06 | CONS ---
Date/Time of Note Date/Time of Note DATE: 06/30/16 TIME: 17:05 Assessment/Plan Assessment/Plan Chief Complaint/Hosp Course ESRD HTN PNEUMONIA better PLEURAL EFFUSION PLAN PER CARDIO NON COMPLIANCE W HD hd refused hd 3 x wk HD T/THURSDAY PT REFUSED HD ON THURSDAY per pcp fluid res bp meds VATS Problems: Consultation Date/Type/Reason Admit Date/Time Jun 13, 2016 at 14:48 Type of Consultation: renal Referring Provider: EVA COX MD 24 HR Interval Summary Subjective hx not possible: other (VATS TODAY) Exam/Review of Systems Vital Signs Vitals Vital Signs Date Time Temp Pulse Resp B/P Pulse Ox O2 Delivery O2 Flow Rate FiO2 06/30/16 14:15 97.9 70 167/62 98 06/30/16 08:00 15 Room Air 06/27/16 08:15 2.0 Intake and Output 06/29/16 06/29/16 06/30/16 15:00 23:00 07:00 Intake Total 700 ml 1050 ml Balance 700 ml 1050 ml Exam Neck: supple Respiratory: clear to auscultation Cardiovascular: regular rate and rhythm Gastrointestinal: soft Musculoskeletal: nl extremities to inspection Extremities: normal pulses Results Result Diagram: 06/30/16 0542 06/30/16 0542 Results 24 hrs Laboratory Tests Test 06/29/16 18:05 06/29/16 21:57 06/30/16 05:42 06/30/16 08:14 Bedside Glucose 139 173 227 H Anion Gap 14 Basophils # 0.1 Basophils % 1.7 Blood Urea Nitrogen 50 H Calcium Level 9.9 Carbon Dioxide Level 30 Chloride Level 94 L Creatinine 6.70 H Eosinophils # 0.4 Eosinophils % 7.5 H Glucose Level 238 H Hematocrit 27.3 L Hemoglobin 9.1 L Lymphocytes # 1.0 Lymphocytes % 17.8 Mean Corpuscular Hemoglobin 32.9 Mean Corpuscular Hemoglobin Concent 33.3 Mean Corpuscular Volume 98.6 Mean Platelet Volume 10.1 Monocytes # 0.6 Monocytes % 10.3 Neutrophils # 3.7 Neutrophils % 62.5 Nucleated Red Blood Cells # 0.0 Nucleated Red Blood Cells % 0.0 Platelet Count 201 Potassium Level 5.0 Red Blood Count 2.77 L Red Cell Distribution Width 12.5 Sodium Level 133 L White Blood Count 5.8 Test 06/30/16 12:58 Bedside Glucose 115 Medications Medications Current Medications IV Flush (NS 10 ml) 10 ml PRN PRN IV FLUSH LINE; Start 06/13/16 at 19:00 Aspirin (Halfprin) 81 mg DAILY PO Last administered on 06/29/16 08:22; Admin Dose 81 MG; Start 06/14/16 at 09:00 Atorvastatin Calcium (Lipitor) 10 mg QHS PO Last administered on 06/29/16 22: 01; Admin Dose 10 MG; Start 06/14/16 at 21:00 Cholecalciferol (Vitamin D) 400 units DAILY PO Last administered on 06/29/16 08:21; Admin Dose 400 UNITS; Start 06/14/16 at 09:00 Clopidogrel Bisulfate (plaVIX) 75 mg DAILY PO Last administered on 06/24/16 08 :36; Admin Dose 75 MG; Start 06/14/16 at 09:00; Status Future Hold Ferrous Sulfate (Ferrous Sulfate (Ec)) 325 mg BID PO Last administered on 22:01; Admin Dose 325 MG; Start 06/14/16 at 09:00 Acetaminophen (Tylenol Tab) 500 mg Q4H PRN PO PAIN AND OR ELEVATED TEMP Last administered on 06/22/16 11:29; Admin Dose 500 MG; Start 06/14/16 at 00:00 Heparin Sodium (Porcine) (Heparin (5000 Units/0.5 ml)) 5,000 unit BID SC Last administered on 06/28/16 21:15; Admin Dose 5,000 UNIT; Start 06/14/16 at 09:00 Miscellaneous Information 1 ea NOTE XX Last administered on 06/18/16 07:57; Admin Dose 1 EA; Start 06/14/16 at 00:30 Glucose (Glutose) 15 gm Q15M PRN PO DECREASED GLUCOSE; Start 06/14/16 at 00:30 Glucose (Glutose) 22.5 gm Q15M PRN PO DECREASED GLUCOSE; Start 06/14/16 at 00: 30 Dextrose (D50w Syringe) 25 ml Q15M PRN IV DECREASED GLUCOSE; Start 06/14/16 at 00:30 Dextrose (D50w Syringe) 50 ml Q15M PRN IV DECREASED GLUCOSE; Start 06/14/16 at 00:30 Glucagon (Glucagen) 1 mg Q15M PRN IM DECREASED GLUCOSE; Start 06/14/16 at 00:30 Glucose (Glutose) 15 gm Q15M PRN BUCCAL DECREASED GLUCOSE; Start 06/14/16 at 00 :30 Diagnostic Test (Pha) (Accucheck) 1 ea 02 XX Last administered on 06/23/16 02: 29; Admin Dose 1 EA; Start 06/14/16 at 02:00 Amlodipine Besylate (Norvasc) 5 mg BID PO Last administered on 06/29/16 22:02 ; Admin Dose 5 MG; Start 06/14/16 at 13:30 Clonidine (Catapres) 0.2 mg Q8 PRN PO Systolic >160 Last administered on 02:29; Admin Dose 0.2 MG; Start 06/14/16 at 13:00 Promethazine HCl/ Codeine (Phenergan/ Codeine) 5 ml Q4H PRN PO COUGH Last administered on 06/21/16 18:04; Admin Dose 5 ML; Start 06/15/16 at 00:00 Insulin Glargine (Lantus) 14 unit QHS SC Last administered on 06/23/16 20:31; Admin Dose 14 UNIT; Start 06/15/16 at 21:00; Status Future Hold Pantoprazole (Protonix Tab) 40 mg DAILY@06 PO Last administered on 06/30/16 05 :39; Admin Dose 40 MG; Start 06/16/16 at 06:00 Diphenhydramine HCl (Benadryl) 25 mg HS PRN PO INSOMNIA Last administered on 00:54; Admin Dose 25 MG; Start 06/15/16 at 21:30 Hydralazine HCl (Apresoline) 100 mg Q8 PO Last administered on 06/30/16 05:42 ; Admin Dose 100 MG; Start 06/19/16 at 13:00 Bisacodyl (Dulcolax) 10 mg DAILY PRN PO CONSTIPATION; Start 06/22/16 at 11:30 Benazepril HCl (Lotensin) 40 mg BID PO Last administered on 06/29/16 22:02; Admin Dose 40 MG; Start 06/23/16 at 21:00 Metoprolol Tartrate (Lopressor) 50 mg BID PO Last administered on 06/30/16 09: 18; Admin Dose 50 MG; Start 06/26/16 at 09:00 Hydralazine HCl (Apresoline) 20 mg Q4H PRN IV for SBP more than 170; Start at 05:00 Ondansetron HCl (Zofran Inj) 4 mg Q6H PRN IV NAUSEA AND/OR VOMITING Last administered on 06/29/16 08:13; Admin Dose 4 MG; Start 06/28/16 at 05:00 Lorazepam (Ativan) 1 mg Q6H PRN IV ANXIETY Last administered on 06/28/16 04:58 ; Admin Dose 1 MG; Start 06/28/16 at 05:00 Clonidine 0.1 mg 0.1 mg QID PO Last administered on 06/30/16 14:07; Admin Dose 0.1 MG; Start 06/28/16 at 13:00 Sodium Chloride (1/2 NS) 1,000 ml @ 40 mls/hr Q24H IV Last administered on 18:57; Admin Dose 40 MLS/HR; Start 06/29/16 at 18:00 PAOLA MOODY MD Jun 30, 2016 17:06
[2016-06-30] MEDS ORDERED: CEFAZOLIN 1 GM INJ ONE (17:09)
--- NOTE | 2016-06-30 17:44 | PN ---
Date/Time of Note Date/Time of Note DATE: 06/30/16 TIME: 17:42 Assessment/Plan VTE Prophylaxis VTE Prophylaxis Intervention: SCD's Lines/Catheters IV C[facility]ter Type [facility]from [facility]): PICC Line Central line still needed: Yes Urinary Cath still in place: No Assessment/Plan Chief Complaint/Hosp Course Assessment and plan - Recurrent pleural effusions. Dr. Martinez is following in thoracic surgery consultation. Plan for VATS today. - Right pleural effusion, status post thoracentesis. Dr. Dale is following in pulmonology consultation. - End-stage renal disease, continue hemodialysis. Dr. Saunders is following in nephrology consultation. - Diabetes mellitus type 2, continue Lantus and NovoLog - Hypertension. Dr. De Santiago is following and cardiology consultation. - Coronary artery disease, status post coronary artery bypass graft. - Permanent pacemaker. No acute issues. - Dyslipidemia. Continue Lipitor. 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 Continue heparin for deep venous thrombosis prophylaxis and Protonix for peptic ulcer disease prophylaxis. Further recommendations based on clinical course. Plan of care discussed with Dr. Price. Problems: Subjective 24 Hr Interval Summary Free Text/Dictation Patient is currently in OR, no nausea vomiting fever reported prior to surgery. Exam/Review of Systems Vital Signs Vitals Vital Signs Date Time Temp Pulse Resp B/P Pulse Ox O2 Delivery O2 Flow Rate FiO2 06/30/16 14:15 97.9 70 167/62 98 06/30/16 08:00 15 Room Air 06/27/16 08:15 2.0 Intake and Output 06/29/16 06/29/16 06/30/16 15:00 23:00 07:00 Intake Total 700 ml 1050 ml Balance 700 ml 1050 ml Results Result Diagram: 06/30/16 0542 06/30/16 0542 Results 24 hrs Laboratory Tests Test 06/29/16 18:05 06/29/16 21:57 06/30/16 05:42 06/30/16 08:14 Bedside Glucose 139 173 227 H Anion Gap 14 Basophils # 0.1 Basophils % 1.7 Blood Urea Nitrogen 50 H Calcium Level 9.9 Carbon Dioxide Level 30 Chloride Level 94 L Creatinine 6.70 H Eosinophils # 0.4 Eosinophils % 7.5 H Glucose Level 238 H Hematocrit 27.3 L Hemoglobin 9.1 L Lymphocytes # 1.0 Lymphocytes % 17.8 Mean Corpuscular Hemoglobin 32.9 Mean Corpuscular Hemoglobin Concent 33.3 Mean Corpuscular Volume 98.6 Mean Platelet Volume 10.1 Monocytes # 0.6 Monocytes % 10.3 Neutrophils # 3.7 Neutrophils % 62.5 Nucleated Red Blood Cells # 0.0 Nucleated Red Blood Cells % 0.0 Platelet Count 201 Potassium Level 5.0 Red Blood Count 2.77 L Red Cell Distribution Width 12.5 Sodium Level 133 L White Blood Count 5.8 Test 06/30/16 12:58 Bedside Glucose 115 Medications Medications Current Medications IV Flush (NS 10 ml) 10 ml PRN PRN IV FLUSH LINE; Start 06/13/16 at 19:00 Aspirin (Halfprin) 81 mg DAILY PO Last administered on 06/29/16 08:22; Admin Dose 81 MG; Start 06/14/16 at 09:00 Atorvastatin Calcium (Lipitor) 10 mg QHS PO Last administered on 06/29/16 22: 01; Admin Dose 10 MG; Start 06/14/16 at 21:00 Cholecalciferol (Vitamin D) 400 units DAILY PO Last administered on 06/29/16 08:21; Admin Dose 400 UNITS; Start 06/14/16 at 09:00 Clopidogrel Bisulfate (plaVIX) 75 mg DAILY PO Last administered on 06/24/16 08 :36; Admin Dose 75 MG; Start 06/14/16 at 09:00; Status Future Hold Ferrous Sulfate (Ferrous Sulfate (Ec)) 325 mg BID PO Last administered on 22:01; Admin Dose 325 MG; Start 06/14/16 at 09:00 Acetaminophen (Tylenol Tab) 500 mg Q4H PRN PO PAIN AND OR ELEVATED TEMP Last administered on 06/22/16 11:29; Admin Dose 500 MG; Start 06/14/16 at 00:00 Heparin Sodium (Porcine) (Heparin (5000 Units/0.5 ml)) 5,000 unit BID SC Last administered on 06/28/16 21:15; Admin Dose 5,000 UNIT; Start 06/14/16 at 09:00 Miscellaneous Information 1 ea NOTE XX Last administered on 06/18/16 07:57; Admin Dose 1 EA; Start 06/14/16 at 00:30 Glucose (Glutose) 15 gm Q15M PRN PO DECREASED GLUCOSE; Start 06/14/16 at 00:30 Glucose (Glutose) 22.5 gm Q15M PRN PO DECREASED GLUCOSE; Start 06/14/16 at 00: 30 Dextrose (D50w Syringe) 25 ml Q15M PRN IV DECREASED GLUCOSE; Start 06/14/16 at 00:30 Dextrose (D50w Syringe) 50 ml Q15M PRN IV DECREASED GLUCOSE; Start 06/14/16 at 00:30 Glucagon (Glucagen) 1 mg Q15M PRN IM DECREASED GLUCOSE; Start 06/14/16 at 00:30 Glucose (Glutose) 15 gm Q15M PRN BUCCAL DECREASED GLUCOSE; Start 06/14/16 at 00 :30 Diagnostic Test (Pha) (Accucheck) 1 ea 02 XX Last administered on 06/23/16 02: 29; Admin Dose 1 EA; Start 06/14/16 at 02:00 Amlodipine Besylate (Norvasc) 5 mg BID PO Last administered on 06/29/16 22:02 ; Admin Dose 5 MG; Start 06/14/16 at 13:30 Clonidine (Catapres) 0.2 mg Q8 PRN PO Systolic >160 Last administered on 02:29; Admin Dose 0.2 MG; Start 06/14/16 at 13:00 Promethazine HCl/ Codeine (Phenergan/ Codeine) 5 ml Q4H PRN PO COUGH Last administered on 06/21/16 18:04; Admin Dose 5 ML; Start 06/15/16 at 00:00 Insulin Glargine (Lantus) 14 unit QHS SC Last administered on 06/23/16 20:31; Admin Dose 14 UNIT; Start 06/15/16 at 21:00; Status Future Hold Pantoprazole (Protonix Tab) 40 mg DAILY@06 PO Last administered on 06/30/16 05 :39; Admin Dose 40 MG; Start 06/16/16 at 06:00 Diphenhydramine HCl (Benadryl) 25 mg HS PRN PO INSOMNIA Last administered on 00:54; Admin Dose 25 MG; Start 06/15/16 at 21:30 Hydralazine HCl (Apresoline) 100 mg Q8 PO Last administered on 06/30/16 05:42 ; Admin Dose 100 MG; Start 06/19/16 at 13:00 Bisacodyl (Dulcolax) 10 mg DAILY PRN PO CONSTIPATION; Start 06/22/16 at 11:30 Benazepril HCl (Lotensin) 40 mg BID PO Last administered on 06/29/16 22:02; Admin Dose 40 MG; Start 06/23/16 at 21:00 Metoprolol Tartrate (Lopressor) 50 mg BID PO Last administered on 06/30/16 09: 18; Admin Dose 50 MG; Start 06/26/16 at 09:00 Hydralazine HCl (Apresoline) 20 mg Q4H PRN IV for SBP more than 170; Start at 05:00 Ondansetron HCl (Zofran Inj) 4 mg Q6H PRN IV NAUSEA AND/OR VOMITING Last administered on 06/29/16 08:13; Admin Dose 4 MG; Start 06/28/16 at 05:00 Lorazepam (Ativan) 1 mg Q6H PRN IV ANXIETY Last administered on 06/28/16 04:58 ; Admin Dose 1 MG; Start 06/28/16 at 05:00 Clonidine 0.1 mg 0.1 mg QID PO Last administered on 06/30/16 14:07; Admin Dose 0.1 MG; Start 06/28/16 at 13:00 Sodium Chloride (1/2 NS) 1,000 ml @ 40 mls/hr Q24H IV Last administered on 18:57; Admin Dose 40 MLS/HR; Start 06/29/16 at 18:00 CECILIA DAMICO Jun 30, 2016 17:44
[2016-06-30] MEDS ORDERED: ONDANSETRON 4 MG INJ ONE (17:51)
[2016-06-30] MEDS ORDERED: PHENYLephrine (100 MCG/ML) 5ML SYG ONE (17:57)
[2016-06-30] MEDS ORDERED: FENTAnyl 50 MCG/ML VIAL IV PRN (18:00)
[2016-06-30] MEDS ORDERED: hydrALAzine 20 MG INJ IV PRN (18:00)
[2016-06-30] MEDS ORDERED: ONDANSETRON 4 MG INJ IV PRN (18:00)
[2016-06-30] MEDS ORDERED: MEPERIDINE 25 MG INJ IV PRN (18:00)
[2016-06-30] MEDS ORDERED: DIPHENHYDRAMINE 50 MG INJ IV PRN (18:00)
--- NOTE | 2016-06-30 18:21 | OPPN ---
Date/Time of Note Date/Time of Note DATE: 06/30/16 TIME: 18:19 Operative/Procedure Note Pre-Operative Diagnosis right pleural effusion Post-Operative Diagnosis right pleural effusion Procedure Right VATS pleurodesis, decortication Surgeon: LILIA FELIZ MD Implants/Grafts: Not applicable Estimated blood loss: minimal Drains: Not applicable Specimens: Not Applicable Complications: None Anesthesia type: general LILIA FELIZ MD Jun 30, 2016 18:21
[2016-06-30] MEDS ORDERED: HYDROmorphONE 2 MG/ML SYG ONE (18:29)
--- NOTE | 2016-06-30 19:19 | RADRPT ---
PROCEDURE: XR Chest AP portable CLINICAL INDICATION: Pneumothorax TECHNIQUE: An AP portable radiograph of the chest was submitted. COMPARISON: 06/24/2016 FINDINGS: Support Hardware: The left upper extremity PICC catheter is again identified but the proximal cathet er is obscured p.m. and a pacemaker and may be positioned in the left subclavian vein. A right-side d thoracostomy tube has been placed since the previous study through a the right inferolateral inter costal approach with the tip directed medially and superiorly near the right hilum. Cardiovascular: There is evidence of a previous midline sternotomy and mediastinal surgery. The card iovascular silhouette appears unremarkable except for atherosclerotic change of the aorta. Lung Chaudhary: There is been near resolution of the right middle lobe infiltrate. Pleural Spaces: There is a trace of right pneumothorax projecting to the lateral right lung base wit h no effusion identified. Osseous Structures: The osseous structures appear intact. Soft Tissues: There is a small amount of subcutaneous air within the right lateral soft tissues. IMPRESSION: 1. Interval placement of a right-sided thoracostomy tube with the tip see projects to the region of the right hilum. 2. A left upper extremity PICC catheter is again evident and the tip is obscured behind the left pa cemaker generator and may lie within the left subclavian vein. 3. Near resolution of the right middle lobe infiltrate and resolution of the right pleural fluid ac cumulation. There is a trace of a pneumothorax at the right lung base. 4. Previous midline sternotomy with the cardiovascular silhouette unremarkable except for atheroscl erotic change involving the aorta. 5. Trace amount of free air seen in the right lateral soft tissues. Physician Cecil Date Time Electronically viewed and signed by Physician Cecil on 06/30/2016 19:19 /
[2016-06-30] MEDS: ONDANSETRON 4 MG INJ IV PRN (19:59)
[2016-06-30] MEDS: HYDROmorphONE 1 MG/ML SYG IV PRN ×2 (20:04→22:59)
[2016-06-30 20:24] LABS: ADD SCAN DIFF NO
[2016-06-30 20:26] LABS: BASOPHIL # 0.1 10^3/ul (0.0-0.1); BASOPHILS % 0.5 % (0.0-2.0); EOSINOPHILS # 0.2 10^3/ul (0.0-0.5); EOSINOPHILS % 1.6 % (0.0-7.0); HEMATOCRIT 24.6 % (42.0-52.0); HEMOGLOBIN 8.3 g/dl (14.0-18.0); LYMPHOCYTES # 0.8 10^3/ul (0.8-2.9); LYMPHOCYTES % 7.1 % (15.0-51.0); MEAN CORPUSCULAR HEMOGLOBIN 33.6 pg (29.0-33.0); MEAN CORPUSCULAR HGB CONC 33.7 g/dl (32.0-37.0); MEAN CORPUSCULAR VOLUME 99.6 fl (82.0-101.0); MEAN PLATELET VOLUME 9.4 fl (7.4-10.4); MONOCYTE # 0.7 10^3/ul (0.3-0.9); MONOCYTES % 6.5 % (0.0-11.0); NEUTROPHIL # 9.2 10^3/ul (1.6-7.5); NEUTROPHILS % 83.9 % (39.0-77.0); PLATELET COUNT 174 10^3/UL (140-415); RED BLOOD COUNT 2.47 10^6/ul (4.70-6.10); RED CELL DISTRIBUTION WIDTH 12.8 % (11.5-14.5); WHITE BLOOD COUNT 10.9 10^3/ul (4.8-10.8)
[2016-06-30] MEDS: LORAZEPAM 2 MG INJ IV PRN (20:29)
[2016-06-30] MEDS: ATORVASTATIN 10 MG TAB PO SCH (20:51)
--- NOTE | 2016-06-30 21:58 | OPR ---
DATE OF OPERATION: PREOPERATIVE DIAGNOSIS: Right pleural effusion. POSTOPERATIVE DIAGNOSIS: Right pleural effusion. OPERATION PERFORMED: 1. Right video-assisted thoracic surgery, total pulmonary decortication. 2. Right pleurodesis. 3. Bronchoscopy. SURGEON: Phil Martinez MD ANESTHESIA: General. ESTIMATED BLOOD LOSS: 25 mL CONSENT: Risks, benefits, complications, alternative therapies explained to the patient and the [facility], consent obtained. OPERATIVE TECHNIQUE: The patient was placed in supine position, intubated. Bronchoscopy was done. No evidence of any endobronchial lesions was noted. The patient was placed in left lateral decubit us position, prepped and draped in usual sterile fashion with the right side up. A timeout was call ed, and I started. I made a 1 cm incision, middle axillary line, 8th intercostal space. Incision w as taken down to subcutaneous tissue, which was then opened using electrocautery. A 12 mm trocar wa s advanced into the pleural cavity. A second incision, 5 mm incision was made at the tip of the sca pula. The thoracoscopy was done. Large amount of granular activity was noted in the pleural cavity , and the lung biopsy was taken. I spoke with Dr. Dubon, who did a frozen section. He told me t hat this is all granulomatous changes, no evidence of any malignancy. Decortication was done. The lung was decorticated. All the peels were removed. The lung expanded except for an area posterolat erally which was very stuck to the chest cavity. Pleurodesis was then also performed which was acco mplished using electrocautery and talc. No evidence of any major bleeding was noted. A 32-Swazi c hest tube was placed into trocar cavity, secured to skin using silk sutures. The other incision was closed using a single 3-0 Vicryl suture in interrupted fashion. The patient tolerated procedure we ll. Dictated By: PHIL SOTO/MANJIT Conf#: [id number] DID#: [id number]
[2016-06-30] MEDS: SOD CHLORIDE 0.45% 1,000 ML IV SCH (22:23)
[2016-07-01] VITALS (24 sets, daily range): BP systolic 96–150; BP diastolic 31–76; PULSE 70–76; RESP 14–29
[2016-07-01] MEDS: HYDROmorphONE 1 MG/ML SYG IV PRN ×7 (01:18→23:57)
[2016-07-01] MEDS: ACCU-CHEK XX SCH ×5 (02:00→20:36)
[2016-07-01 04:45] LABS: ADD SCAN DIFF NO
[2016-07-01 05:20] LABS: ABNORMAL IP MESSAGE 1; BASOPHIL # 0.1 10^3/ul (0.0-0.1); BASOPHILS % 0.4 % (0.0-2.0); EOSINOPHILS % 0.1 % (0.0-7.0); HEMATOCRIT 27.2 % (42.0-52.0); HEMOGLOBIN 9.1 g/dl (14.0-18.0); LYMPHOCYTES # 0.5 10^3/ul (0.8-2.9); LYMPHOCYTES % 3.4 % (15.0-51.0); MEAN CORPUSCULAR HEMOGLOBIN 33.2 pg (29.0-33.0); MEAN CORPUSCULAR HGB CONC 33.5 g/dl (32.0-37.0); MEAN CORPUSCULAR VOLUME 99.3 fl (82.0-101.0); MEAN PLATELET VOLUME 10.2 fl (7.4-10.4); MONOCYTE # 1.1 10^3/ul (0.3-0.9); MONOCYTES % 7.1 % (0.0-11.0); NEUTROPHIL # 13.1 10^3/ul (1.6-7.5); NEUTROPHILS % 88.3 % (39.0-77.0); NUCLEATED RED BLOOD CELLS% 0.1 /100WBC (0.0-0.0); PLATELET COUNT 207 10^3/UL (140-415); RED BLOOD COUNT 2.74 10^6/ul (4.70-6.10); RED CELL DISTRIBUTION WIDTH 12.7 % (11.5-14.5); WHITE BLOOD COUNT 14.8 10^3/ul (4.8-10.8)
[2016-07-01] MEDS: PANTOPRAZOLE (EC) 40 MG TAB PO SCH (05:42)
[2016-07-01 05:43] LABS: POTASSIUM 5.3 mmol/L (3.5-5.1)
[2016-07-01 05:46] LABS: CREATININE 7.39 mg/dl (0.61-1.24)
[2016-07-01 05:47] LABS: CALCIUM 8.8 mg/dl (8.4-10.2)
[2016-07-01] MEDS: INSULIN ASPART [NOVOLOG] 3 ML PEN SC SCH ×4 (07:34→20:32)
[2016-07-01] MEDS: SEVELAMER CARBONATE 0.8 GM PKT PO SCH ×3 (07:35→17:27)
[2016-07-01] MEDS: ONDANSETRON 4 MG INJ IV PRN ×2 (07:39→20:44)
[2016-07-01] MEDS: CALCIUM ACETATE 667 MG CAP PO SCH ×3 (07:39→17:27)
[2016-07-01] MEDS: LEVALBUTEROL (HFA) 15 GM INHALER INH SCH ×3 (08:00→16:00)
[2016-07-01] MEDS: BENAZEPRIL 40 MG TAB PO SCH ×2 (08:31→20:35)
[2016-07-01] MEDS: AMLODIPINE 5 MG TAB PO SCH ×2 (08:31→20:34)
[2016-07-01] MEDS: METOPROLOL 25 MG TAB PO SCH ×3 (08:31→20:54)
[2016-07-01] MEDS: ASPIRIN (EC) 81 MG TAB PO SCH (08:32)
[2016-07-01] MEDS: CHOLECALCIFEROL 400 UNITS TAB PO SCH (08:32)
[2016-07-01] MEDS: FERROUS SULFATE (EC) 325 MG TAB PO SCH ×2 (08:32→20:33)
[2016-07-01] MEDS: HEPARIN 5,000 UNIT/0.5 ML SYG SC SCH ×2 (08:34→20:32)
--- NOTE | 2016-07-01 09:51 | CONS ---
Date/Time of Note Date/Time of Note DATE: 07/01/16 TIME: 09:48 Assessment/Plan Assessment/Plan Additional Assessment/Plan Assessment recommendations; 1. Patient admitted several weeks ago for recurrent right pleural effusion underwent multiple thoracentesis procedures with recurrent right pleural effusion ultimately requiring a VATS procedure which was performed yesterday. 2. History of end-stage renal disease on hemodialysis. 3. History of diabetes. 4. History of hypertension. 5. History of coronary artery disease status post bypass surgery in the past. We will continue current treatment. Patient will be transferred to the medical floor. Consultation Date/Type/Reason Admit Date/Time Jun 13, 2016 at 14:48 Type of Consultation: Pulmonary/critical care Referring Provider: EVA COX MD 24 HR Interval Summary Free Text/Dictation Patient condition is stable. He underwent VATS procedure on the right side yesterday, patient denies any chest pain, shortness of breath. General examination; middle aged man, currently in no distress awake and alert. Exam/Review of Systems Vital Signs Vitals Vital Signs Date Time Temp Pulse Resp B/P Pulse Ox O2 Delivery O2 Flow Rate FiO2 07/01/16 09:00 98.4 70 24 106/43 100 Nasal Cannula 2.0 Intake and Output 06/30/16 06/30/16 07/01/16 15:00 23:00 07:00 Intake Total 0 ml 440 ml 320 ml Output Total 500 ml 540 ml Balance 0 ml -60 ml -220 ml Exam HEENT examination; supple neck, no JVD. No lymphadenopathy. Midline trachea. No thyromegaly. Pupils are small bilaterally. Pharynx is clear. Patient does have multiple missing teeth. Chest examination; clear to auscultate bilaterally. S1-S2 audible, no murmurs. Regular rhythm. There is a well-healed sternal scar. There is a right-sided chest tube in place. Abdomen examination; soft, nontender. No organomegaly. Bowel sounds audible. Nondistended. Extremity exam; no peripheral edema. There is an AV shunt in the right arm. SEAT TRIMMER examination; no focal deficit. Results Result Diagram: 07/01/16 0416 07/01/16 0416 Results 24 hrs Laboratory Tests Test 06/30/16 12:58 06/30/16 18:49 06/30/16 20:17 06/30/16 22:20 Bedside Glucose 115 144 158 Basophils # 0.1 Basophils % 0.5 Eosinophils # 0.2 Eosinophils % 1.6 Hematocrit 24.6 L Hemoglobin 8.3 L Lymphocytes # 0.8 Lymphocytes % 7.1 L Mean Corpuscular Hemoglobin 33.6 H Mean Corpuscular Hemoglobin Concent 33.7 Mean Corpuscular Volume 99.6 Mean Platelet Volume 9.4 Monocytes # 0.7 Monocytes % 6.5 Neutrophils # 9.2 H Neutrophils % 83.9 H Nucleated Red Blood Cells # 0.0 Nucleated Red Blood Cells % 0.0 Platelet Count 174 Red Blood Count 2.47 L Red Cell Distribution Width 12.8 White Blood Count 10.9 #H Test 07/01/16 04:16 07/01/16 07:32 Anion Gap 17 H Basophils # 0.1 Basophils % 0.4 Blood Urea Nitrogen 55 H Calcium Level 8.8 Carbon Dioxide Level 23 Chloride Level 100 Creatinine 7.39 H Eosinophils # 0.0 Eosinophils % 0.1 Glucose Level 127 # Hematocrit 27.2 L Hemoglobin 9.1 L Lymphocytes # 0.5 L Lymphocytes % 3.4 L Mean Corpuscular Hemoglobin 33.2 H Mean Corpuscular Hemoglobin Concent 33.5 Mean Corpuscular Volume 99.3 Mean Platelet Volume 10.2 Monocytes # 1.1 H Monocytes % 7.1 Neutrophils # 13.1 H Neutrophils % 88.3 H Nucleated Red Blood Cells # 0.0 Nucleated Red Blood Cells % 0.1 H Platelet Count 207 Potassium Level 5.3 H Red Blood Count 2.74 L Red Cell Distribution Width 12.7 Sodium Level 135 White Blood Count 14.8 #H Bedside Glucose 140 Medications Medications Current Medications IV Flush (NS 10 ml) 10 ml PRN PRN IV FLUSH LINE; Start 06/13/16 at 19:00 Aspirin (Halfprin) 81 mg DAILY PO Last administered on 07/01/16 08:32; Admin Dose 81 MG; Start 06/14/16 at 09:00 Atorvastatin Calcium (Lipitor) 10 mg QHS PO Last administered on 06/29/16 22: 01; Admin Dose 10 MG; Start 06/14/16 at 21:00 Cholecalciferol (Vitamin D) 400 units DAILY PO Last administered on 07/01/16 08:32; Admin Dose 400 UNITS; Start 06/14/16 at 09:00 Clopidogrel Bisulfate (plaVIX) 75 mg DAILY PO Last administered on 06/24/16 08 :36; Admin Dose 75 MG; Start 06/14/16 at 09:00; Status Future Hold Ferrous Sulfate (Ferrous Sulfate (Ec)) 325 mg BID PO Last administered on 08:32; Admin Dose 325 MG; Start 06/14/16 at 09:00 Acetaminophen (Tylenol Tab) 500 mg Q4H PRN PO PAIN AND OR ELEVATED TEMP Last administered on 06/22/16 11:29; Admin Dose 500 MG; Start 06/14/16 at 00:00 Heparin Sodium (Porcine) (Heparin (5000 Units/0.5 ml)) 5,000 unit BID SC Last administered on 07/01/16 08:34; Admin Dose 5,000 UNIT; Start 06/14/16 at 09:00 Miscellaneous Information 1 ea NOTE XX Last administered on 06/18/16 07:57; Admin Dose 1 EA; Start 06/14/16 at 00:30 Glucose (Glutose) 15 gm Q15M PRN PO DECREASED GLUCOSE; Start 06/14/16 at 00:30 Glucose (Glutose) 22.5 gm Q15M PRN PO DECREASED GLUCOSE; Start 06/14/16 at 00: 30 Dextrose (D50w Syringe) 25 ml Q15M PRN IV DECREASED GLUCOSE; Start 06/14/16 at 00:30 Dextrose (D50w Syringe) 50 ml Q15M PRN IV DECREASED GLUCOSE; Start 06/14/16 at 00:30 Glucagon (Glucagen) 1 mg Q15M PRN IM DECREASED GLUCOSE; Start 06/14/16 at 00:30 Glucose (Glutose) 15 gm Q15M PRN BUCCAL DECREASED GLUCOSE; Start 06/14/16 at 00 :30 Diagnostic Test (Pha) (Accucheck) 1 ea 02 XX Last administered on 06/23/16 02: 29; Admin Dose 1 EA; Start 06/14/16 at 02:00 Amlodipine Besylate (Norvasc) 5 mg BID PO Last administered on 06/29/16 22:02 ; Admin Dose 5 MG; Start 06/14/16 at 13:30 Clonidine (Catapres) 0.2 mg Q8 PRN PO Systolic >160 Last administered on 02:29; Admin Dose 0.2 MG; Start 06/14/16 at 13:00 Promethazine HCl/ Codeine (Phenergan/ Codeine) 5 ml Q4H PRN PO COUGH Last administered on 06/21/16 18:04; Admin Dose 5 ML; Start 06/15/16 at 00:00 Insulin Glargine (Lantus) 14 unit QHS SC Last administered on 06/23/16 20:31; Admin Dose 14 UNIT; Start 06/15/16 at 21:00; Status Future Hold Pantoprazole (Protonix Tab) 40 mg DAILY@06 PO Last administered on 06/30/16 05 :39; Admin Dose 40 MG; Start 06/16/16 at 06:00 Diphenhydramine HCl (Benadryl) 25 mg HS PRN PO INSOMNIA Last administered on 00:54; Admin Dose 25 MG; Start 06/15/16 at 21:30 Hydralazine HCl (Apresoline) 100 mg Q8 PO Last administered on 06/30/16 05:42 ; Admin Dose 100 MG; Start 06/19/16 at 13:00 Bisacodyl (Dulcolax) 10 mg DAILY PRN PO CONSTIPATION; Start 06/22/16 at 11:30 Benazepril HCl (Lotensin) 40 mg BID PO Last administered on 06/29/16 22:02; Admin Dose 40 MG; Start 06/23/16 at 21:00 Metoprolol Tartrate (Lopressor) 50 mg BID PO Last administered on 06/30/16 09: 18; Admin Dose 50 MG; Start 06/26/16 at 09:00 Hydralazine HCl (Apresoline) 20 mg Q4H PRN IV for SBP more than 170; Start at 05:00 Ondansetron HCl (Zofran Inj) 4 mg Q6H PRN IV NAUSEA AND/OR VOMITING Last administered on 07/01/16 07:39; Admin Dose 4 MG; Start 06/28/16 at 05:00 Lorazepam (Ativan) 1 mg Q6H PRN IV ANXIETY Last administered on 06/30/16 20:29 ; Admin Dose 1 MG; Start 06/28/16 at 05:00 Clonidine 0.1 mg 0.1 mg QID PO Last administered on 06/30/16 14:07; Admin Dose 0.1 MG; Start 06/28/16 at 13:00 Sodium Chloride (1/2 NS) 1,000 ml @ 40 mls/hr Q24H IV Last administered on 22:23; Admin Dose 40 MLS/HR; Start 06/29/16 at 18:00 Hydromorphone HCl (Dilaudid) 0.5 mg Q4H PRN IV PAIN Last administered on 06:40; Admin Dose 0.5 MG; Start 07/01/16 at 01:30 BOONE POLO Jul 01, 2016 09:51
--- NOTE | 2016-07-01 12:08 | PN ---
Date/Time of Note Date/Time of Note DATE: 07/01/16 TIME: 12:05 Assessment/Plan VTE Prophylaxis VTE Prophylaxis Intervention: SCD's Lines/Catheters IV [facility]atheter Type (from [facility]): A Line Urinary Cath still in place: No Assessment/Plan Chief Complaint/Hosp Course Assessment and plan - Recurrent pleural effusions. Dr. Martinez is following in thoracic surgery consultation. S/p VATS 06/30. Follow-up on intraoperative cultures. - Right pleural effusion, status post thoracentesis. Dr. Dale is following in pulmonology consultation. - End-stage renal disease, continue hemodialysis. Dr. Saunders is following in nephrology consultation. - Diabetes mellitus type 2, continue Lantus and NovoLog - Hypertension. Dr. De Santiago is following and cardiology consultation. - Coronary artery disease, status post coronary artery bypass graft. - Permanent pacemaker. No acute issues. - Dyslipidemia. Continue Lipitor. Continue heparin for deep venous thrombosis prophylaxis and Protonix for peptic ulcer disease prophylaxis. Further recommendations based on clinical course. Plan of care discussed with Dr. Price. Problems: Subjective 24 Hr Interval Summary Free Text/Dictation Patient is awake alert, denies any nausea vomiting, complains of the right chest pain due to recent surgery, pain is well controlled with medication. Continue ICU care restart diet Exam/Review of Systems Vital Signs Vitals Vital Signs Date Time Temp Pulse Resp B/P Pulse Ox O2 Delivery O2 Flow Rate FiO2 07/01/16 11:00 70 21 109/42 100 Nasal Cannula 2.0 07/01/16 09:00 98.4 Intake and Output 06/30/16 06/30/16 07/01/16 15:00 23:00 07:00 Intake Total 0 ml 440 ml 320 ml Output Total 500 ml 540 ml Balance 0 ml -60 ml -220 ml Exam Constitutional: alert Psych: no complaints Head: atraumatic, normocephalic Eyes: nl conjunctiva ENMT: nl external ears & nose Neck: non-tender, supple Respiratory: clear to auscultation, R chest tube Cardiovascular: nl pulses Gastrointestinal: non-tender, soft Musculoskeletal: nl extremities to inspection Extremities: normal pulses Neurological: POLISHER BRASS II-XII intact Skin: nl turgor Results Result Diagram: 07/01/16 0416 07/01/16 0416 Results 24 hrs Laboratory Tests Test 06/30/16 12:58 06/30/16 18:49 06/30/16 20:17 06/30/16 22:20 Bedside Glucose 115 144 158 Basophils # 0.1 Basophils % 0.5 Eosinophils # 0.2 Eosinophils % 1.6 Hematocrit 24.6 L Hemoglobin 8.3 L Lymphocytes # 0.8 Lymphocytes % 7.1 L Mean Corpuscular Hemoglobin 33.6 H Mean Corpuscular Hemoglobin Concent 33.7 Mean Corpuscular Volume 99.6 Mean Platelet Volume 9.4 Monocytes # 0.7 Monocytes % 6.5 Neutrophils # 9.2 H Neutrophils % 83.9 H Nucleated Red Blood Cells # 0.0 Nucleated Red Blood Cells % 0.0 Platelet Count 174 Red Blood Count 2.47 L Red Cell Distribution Width 12.8 White Blood Count 10.9 #H Test 07/01/16 04:16 07/01/16 07:32 07/01/16 11:07 Anion Gap 17 H Basophils # 0.1 Basophils % 0.4 Blood Urea Nitrogen 55 H Calcium Level 8.8 Carbon Dioxide Level 23 Chloride Level 100 Creatinine 7.39 H Eosinophils # 0.0 Eosinophils % 0.1 Glucose Level 127 # Hematocrit 27.2 L Hemoglobin 9.1 L Lymphocytes # 0.5 L Lymphocytes % 3.4 L Mean Corpuscular Hemoglobin 33.2 H Mean Corpuscular Hemoglobin Concent 33.5 Mean Corpuscular Volume 99.3 Mean Platelet Volume 10.2 Monocytes # 1.1 H Monocytes % 7.1 Neutrophils # 13.1 H Neutrophils % 88.3 H Nucleated Red Blood Cells # 0.0 Nucleated Red Blood Cells % 0.1 H Platelet Count 207 Potassium Level 5.3 H Red Blood Count 2.74 L Red Cell Distribution Width 12.7 Sodium Level 135 White Blood Count 14.8 #H Bedside Glucose 140 194 Medications Medications Current Medications IV Flush (NS 10 ml) 10 ml PRN PRN IV FLUSH LINE; Start 06/13/16 at 19:00 Aspirin (Halfprin) 81 mg DAILY PO Last administered on 07/01/16 08:32; Admin Dose 81 MG; Start 06/14/16 at 09:00 Atorvastatin Calcium (Lipitor) 10 mg QHS PO Last administered on 06/29/16 22: 01; Admin Dose 10 MG; Start 06/14/16 at 21:00 Cholecalciferol (Vitamin D) 400 units DAILY PO Last administered on 07/01/16 08:32; Admin Dose 400 UNITS; Start 06/14/16 at 09:00 Clopidogrel Bisulfate (plaVIX) 75 mg DAILY PO Last administered on 06/24/16 08 :36; Admin Dose 75 MG; Start 06/14/16 at 09:00; Status Future Hold Ferrous Sulfate (Ferrous Sulfate (Ec)) 325 mg BID PO Last administered on 08:32; Admin Dose 325 MG; Start 06/14/16 at 09:00 Acetaminophen (Tylenol Tab) 500 mg Q4H PRN PO PAIN AND OR ELEVATED TEMP Last administered on 06/22/16 11:29; Admin Dose 500 MG; Start 06/14/16 at 00:00 Heparin Sodium (Porcine) (Heparin (5000 Units/0.5 ml)) 5,000 unit BID SC Last administered on 07/01/16 08:34; Admin Dose 5,000 UNIT; Start 06/14/16 at 09:00 Miscellaneous Information 1 ea NOTE XX Last administered on 06/18/16 07:57; Admin Dose 1 EA; Start 06/14/16 at 00:30 Glucose (Glutose) 15 gm Q15M PRN PO DECREASED GLUCOSE; Start 06/14/16 at 00:30 Glucose (Glutose) 22.5 gm Q15M PRN PO DECREASED GLUCOSE; Start 06/14/16 at 00: 30 Dextrose (D50w Syringe) 25 ml Q15M PRN IV DECREASED GLUCOSE; Start 06/14/16 at 00:30 Dextrose (D50w Syringe) 50 ml Q15M PRN IV DECREASED GLUCOSE; Start 06/14/16 at 00:30 Glucagon (Glucagen) 1 mg Q15M PRN IM DECREASED GLUCOSE; Start 06/14/16 at 00:30 Glucose (Glutose) 15 gm Q15M PRN BUCCAL DECREASED GLUCOSE; Start 06/14/16 at 00 :30 Diagnostic Test (Pha) (Accucheck) 1 ea 02 XX Last administered on 06/23/16 02: 29; Admin Dose 1 EA; Start 06/14/16 at 02:00 Amlodipine Besylate (Norvasc) 5 mg BID PO Last administered on 06/29/16 22:02 ; Admin Dose 5 MG; Start 06/14/16 at 13:30 Clonidine (Catapres) 0.2 mg Q8 PRN PO Systolic >160 Last administered on 02:29; Admin Dose 0.2 MG; Start 06/14/16 at 13:00 Promethazine HCl/ Codeine (Phenergan/ Codeine) 5 ml Q4H PRN PO COUGH Last administered on 06/21/16 18:04; Admin Dose 5 ML; Start 06/15/16 at 00:00 Insulin Glargine (Lantus) 14 unit QHS SC Last administered on 06/23/16 20:31; Admin Dose 14 UNIT; Start 06/15/16 at 21:00; Status Future Hold Pantoprazole (Protonix Tab) 40 mg DAILY@06 PO Last administered on 06/30/16 05 :39; Admin Dose 40 MG; Start 06/16/16 at 06:00 Diphenhydramine HCl (Benadryl) 25 mg HS PRN PO INSOMNIA Last administered on 00:54; Admin Dose 25 MG; Start 06/15/16 at 21:30 Hydralazine HCl (Apresoline) 100 mg Q8 PO Last administered on 06/30/16 05:42 ; Admin Dose 100 MG; Start 06/19/16 at 13:00 Bisacodyl (Dulcolax) 10 mg DAILY PRN PO CONSTIPATION; Start 06/22/16 at 11:30 Benazepril HCl (Lotensin) 40 mg BID PO Last administered on 06/29/16 22:02; Admin Dose 40 MG; Start 06/23/16 at 21:00 Metoprolol Tartrate (Lopressor) 50 mg BID PO Last administered on 06/30/16 09: 18; Admin Dose 50 MG; Start 06/26/16 at 09:00 Hydralazine HCl (Apresoline) 20 mg Q4H PRN IV for SBP more than 170; Start at 05:00 Ondansetron HCl (Zofran Inj) 4 mg Q6H PRN IV NAUSEA AND/OR VOMITING Last administered on 07/01/16 07:39; Admin Dose 4 MG; Start 06/28/16 at 05:00 Lorazepam (Ativan) 1 mg Q6H PRN IV ANXIETY Last administered on 06/30/16 20:29 ; Admin Dose 1 MG; Start 06/28/16 at 05:00 Clonidine 0.1 mg 0.1 mg QID PO Last administered on 06/30/16 14:07; Admin Dose 0.1 MG; Start 06/28/16 at 13:00 Sodium Chloride (1/2 NS) 1,000 ml @ 40 mls/hr Q24H IV Last administered on 22:23; Admin Dose 40 MLS/HR; Start 06/29/16 at 18:00 Hydromorphone HCl (Dilaudid) 0.5 mg Q4H PRN IV PAIN Last administered on 11:05; Admin Dose 0.5 MG; Start 07/01/16 at 01:30 CECILIA DAMICO Jul 01, 2016 12:07
--- NOTE | 2016-07-01 12:50 | CONS ---
Date/Time of Note Date/Time of Note DATE: 07/01/16 TIME: 12:48 Assessment/Plan Assessment/Plan Additional Assessment/Plan 1. Abnormal electrocardiogram, assess for acute coronary syndrome.-negative troponin x 3 - no ectopy on tetle, con't med Rx 2. History of recent negative stress, May 2015 - no CP noted, no intervention planned - No CP now 3. History of percutaneous transluminal coronary angioplasty and stent placement in 2014 to the left main left anterior descending. No current chest pain. MED Rx now. 4. Hypertension, mildly elevated - good fluid status, con't to follow - BETTER now. 5. History of dyslipidemia. 6. Pleural effusion, status post thoracentesis - better now, acute on chronic - primary follows. 7. Possible pneumonia/cough-improved- onanti-bx - s/p VATS - tolerated procedure well. 8. Diabetes mellitus. 9. End-stage renal disease, on hemodialysis - remove fluid as tolerated - HD well tolerated 10. Had WCT-now sinus - sinus on tele now Consultation Date/Type/Reason Admit Date/Time Jun 13, 2016 at 14:48 Type of Consultation: Pulmonary/critical care Referring Provider: EVA COX MD 24 HR Interval Summary Free Text/Dictation NO acute events - ICU for monitoring - s/p VATS - tolerated procedure well. ROS: No fever, no chills, no nausea, no vomiting, no diarrhea/constipation No recent weight changes No chest pain, no PND, no orthopnea No dizziness, blurred vision No thirst, no heat or cold intolerance Exam/Review of Systems Vital Signs Vitals Vital Signs Date Time Temp Pulse Resp B/P Pulse Ox O2 Delivery O2 Flow Rate FiO2 07/01/16 12:00 70 20 100/40 100 Nasal Cannula 2.0 07/01/16 09:00 98.4 Intake and Output 06/30/16 06/30/16 07/01/16 15:00 23:00 07:00 Intake Total 0 ml 440 ml 320 ml Output Total 500 ml 540 ml Balance 0 ml -60 ml -220 ml Exam General: WN/WD/NAD, AOx 3 HEENT: Unicetric/atraumatic/EOMI (follow commands) NECK: JVD elevated, no thyromegaly Lymph: no lymphadenopathy HEART: regular with no S3, II/ systolic murmur at apex LUNGS: Coarse sounds, s/p VATS ABD: soft, NT, ND, +BS : Intact Neuro: non focal SKIN: chronic changes EXT: trace edema Results Result Diagram: 07/01/16 0416 07/01/16 0416 Results 24 hrs Laboratory Tests Test 06/30/16 12:58 06/30/16 18:49 06/30/16 20:17 06/30/16 22:20 Bedside Glucose 115 144 158 Basophils # 0.1 Basophils % 0.5 Eosinophils # 0.2 Eosinophils % 1.6 Hematocrit 24.6 L Hemoglobin 8.3 L Lymphocytes # 0.8 Lymphocytes % 7.1 L Mean Corpuscular Hemoglobin 33.6 H Mean Corpuscular Hemoglobin Concent 33.7 Mean Corpuscular Volume 99.6 Mean Platelet Volume 9.4 Monocytes # 0.7 Monocytes % 6.5 Neutrophils # 9.2 H Neutrophils % 83.9 H Nucleated Red Blood Cells # 0.0 Nucleated Red Blood Cells % 0.0 Platelet Count 174 Red Blood Count 2.47 L Red Cell Distribution Width 12.8 White Blood Count 10.9 #H Test 07/01/16 04:16 07/01/16 07:32 07/01/16 11:07 Anion Gap 17 H Basophils # 0.1 Basophils % 0.4 Blood Urea Nitrogen 55 H Calcium Level 8.8 Carbon Dioxide Level 23 Chloride Level 100 Creatinine 7.39 H Eosinophils # 0.0 Eosinophils % 0.1 Glucose Level 127 # Hematocrit 27.2 L Hemoglobin 9.1 L Lymphocytes # 0.5 L Lymphocytes % 3.4 L Mean Corpuscular Hemoglobin 33.2 H Mean Corpuscular Hemoglobin Concent 33.5 Mean Corpuscular Volume 99.3 Mean Platelet Volume 10.2 Monocytes # 1.1 H Monocytes % 7.1 Neutrophils # 13.1 H Neutrophils % 88.3 H Nucleated Red Blood Cells # 0.0 Nucleated Red Blood Cells % 0.1 H Platelet Count 207 Potassium Level 5.3 H Red Blood Count 2.74 L Red Cell Distribution Width 12.7 Sodium Level 135 White Blood Count 14.8 #H Bedside Glucose 140 194 Medications Medications Current Medications IV Flush (NS 10 ml) 10 ml PRN PRN IV FLUSH LINE; Start 06/13/16 at 19:00 Aspirin (Halfprin) 81 mg DAILY PO Last administered on 07/01/16t 08:32; Admin Dose 81 MG; Start 06/14/16 at 09:00 Atorvastatin Calcium (Lipitor) 10 mg QHS PO Last administered on 06/29/16 22: 01; Admin Dose 10 MG; Start 06/14/16 at 21:00 Cholecalciferol (Vitamin D) 400 units DAILY PO Last administered on 07/01/16 08:32; Admin Dose 400 UNITS; Start 06/14/16 at 09:00 Clopidogrel Bisulfate (plaVIX) 75 mg DAILY PO Last administered on 06/24/16 08 :36; Admin Dose 75 MG; Start 06/14/16 at 09:00; Status Future Hold Ferrous Sulfate (Ferrous Sulfate (Ec)) 325 mg BID PO Last administered on 08:32; Admin Dose 325 MG; Start 06/14/16 at 09:00 Acetaminophen (Tylenol Tab) 500 mg Q4H PRN PO PAIN AND OR ELEVATED TEMP Last administered on 06/22/16 11:29; Admin Dose 500 MG; Start 06/14/16 at 00:00 Heparin Sodium (Porcine) (Heparin (5000 Units/0.5 ml)) 5,000 unit BID SC Last administered on 07/01/16 08:34; Admin Dose 5,000 UNIT; Start 06/14/16 at 09:00 Miscellaneous Information 1 ea NOTE XX Last administered on 06/18/16 07:57; Admin Dose 1 EA; Start 06/14/16 at 00:30 Glucose (Glutose) 15 gm Q15M PRN PO DECREASED GLUCOSE; Start 06/14/16 at 00:30 Glucose (Glutose) 22.5 gm Q15M PRN PO DECREASED GLUCOSE; Start 06/14/16 at 00: 30 Dextrose (D50w Syringe) 25 ml Q15M PRN IV DECREASED GLUCOSE; Start 06/14/16 at 00:30 Dextrose (D50w Syringe) 50 ml Q15M PRN IV DECREASED GLUCOSE; Start 06/14/16 at 00:30 Glucagon (Glucagen) 1 mg Q15M PRN IM DECREASED GLUCOSE; Start 06/14/16 at 00:30 Glucose (Glutose) 15 gm Q15M PRN BUCCAL DECREASED GLUCOSE; Start 06/14/16 at 00 :30 Diagnostic Test (Pha) (Accucheck) 1 ea 02 XX Last administered on 06/23/16 02: 29; Admin Dose 1 EA; Start 06/14/16 at 02:00 Amlodipine Besylate (Norvasc) 5 mg BID PO Last administered on 06/29/16 22:02 ; Admin Dose 5 MG; Start 06/14/16 at 13:30 Clonidine (Catapres) 0.2 mg Q8 PRN PO Systolic >160 Last administered on 02:29; Admin Dose 0.2 MG; Start 06/14/16 at 13:00 Promethazine HCl/ Codeine (Phenergan/ Codeine) 5 ml Q4H PRN PO COUGH Last administered on 06/21/16 18:04; Admin Dose 5 ML; Start 06/15/16 at 00:00 Insulin Glargine (Lantus) 14 unit QHS SC Last administered on 06/23/16 20:31; Admin Dose 14 UNIT; Start 06/15/16 at 21:00; Status Future Hold Pantoprazole (Protonix Tab) 40 mg DAILY@06 PO Last administered on 06/30/16 05 :39; Admin Dose 40 MG; Start 06/16/16 at 06:00 Diphenhydramine HCl (Benadryl) 25 mg HS PRN PO INSOMNIA Last administered on 00:54; Admin Dose 25 MG; Start 06/15/16 at 21:30 Hydralazine HCl (Apresoline) 100 mg Q8 PO Last administered on 06/30/16 05:42 ; Admin Dose 100 MG; Start 06/19/16 at 13:00 Bisacodyl (Dulcolax) 10 mg DAILY PRN PO CONSTIPATION; Start 06/22/16 at 11:30 Benazepril HCl (Lotensin) 40 mg BID PO Last administered on 06/29/16 22:02; Admin Dose 40 MG; Start 06/23/16 at 21:00 Metoprolol Tartrate (Lopressor) 50 mg BID PO Last administered on 06/30/16 09: 18; Admin Dose 50 MG; Start 06/26/16 at 09:00 Hydralazine HCl (Apresoline) 20 mg Q4H PRN IV for SBP more than 170; Start at 05:00 Ondansetron HCl (Zofran Inj) 4 mg Q6H PRN IV NAUSEA AND/OR VOMITING Last administered on 07/01/16 07:39; Admin Dose 4 MG; Start 06/28/16 at 05:00 Lorazepam (Ativan) 1 mg Q6H PRN IV ANXIETY Last administered on 06/30/16 20:29 ; Admin Dose 1 MG; Start 06/28/16 at 05:00 Clonidine 0.1 mg 0.1 mg QID PO Last administered on 06/30/16 14:07; Admin Dose 0.1 MG; Start 06/28/16 at 13:00 Sodium Chloride (1/2 NS) 1,000 ml @ 40 mls/hr Q24H IV Last administered on 22:23; Admin Dose 40 MLS/HR; Start 06/29/16 at 18:00 Hydromorphone HCl (Dilaudid) 0.5 mg Q4H PRN IV PAIN Last administered on 11:05; Admin Dose 0.5 MG; Start 07/01/16 at 01:30 CRIS BERNARD MD Jul 01, 2016 12:50
[2016-07-01] MEDS: SOD CHLORIDE 0.45% 1,000 ML IV SCH (17:37)
--- NOTE | 2016-07-01 19:37 | PN ---
Date/Time of Note Date/Time of Note DATE: 07/01/16 TIME: 19:36 Assessment/Plan VTE Prophylaxis VTE Prophylaxis Intervention: other Lines/Catheters IV Catheter Type (from Nrs): Central line still needed: No Urinary Cath still in place: No Assessment/Plan Chief Complaint/Hosp Course IMPRESSION: Bilateral pleural effusions status post thoracentesis with much improvement. SP VATS Decortication will continue CT sxn Problems: Subjective 24 Hr Interval Summary Cardiovascular: no complaints Gastrointestinal: no complaints Genitourinary: no complaints Musculoskeletal: no complaints Skin: no complaints Exam/Review of Systems Vital Signs Vitals Vital Signs Date Time Temp Pulse Resp B/P Pulse Ox O2 Delivery O2 Flow Rate FiO2 07/01/16 19:00 70 20 137/51 100 Nasal Cannula 2.0 07/01/16 15:00 98.8 Intake and Output 06/30/16 06/30/16 07/01/16 15:00 23:00 07:00 Intake Total 0 ml 440 ml 320 ml Output Total 500 ml 540 ml Balance 0 ml -60 ml -220 ml Exam Neck: non-tender, supple Respiratory: clear to auscultation, normal air movement Cardiovascular: nl pulses, regular rate and rhythm Gastrointestinal: nl liver, spleen, non-tender, soft Results Result Diagram: 07/01/16 0416 07/01/16 0416 Results 24 hrs Laboratory Tests Test 06/30/16 20:17 06/30/16 22:20 07/01/16 04:16 07/01/16 07:32 Basophils # 0.1 0.1 Basophils % 0.5 0.4 Eosinophils # 0.2 0.0 Eosinophils % 1.6 0.1 Hematocrit 24.6 L 27.2 L Hemoglobin 8.3 L 9.1 L Lymphocytes # 0.8 0.5 L Lymphocytes % 7.1 L 3.4 L Mean Corpuscular Hemoglobin 33.6 H 33.2 H Mean Corpuscular Hemoglobin Concent 33.7 33.5 Mean Corpuscular Volume 99.6 99.3 Mean Platelet Volume 9.4 10.2 Monocytes # 0.7 1.1 H Monocytes % 6.5 7.1 Neutrophils # 9.2 H 13.1 H Neutrophils % 83.9 H 88.3 H Nucleated Red Blood Cells # 0.0 0.0 Nucleated Red Blood Cells % 0.0 0.1 H Platelet Count 174 207 Red Blood Count 2.47 L 2.74 L Red Cell Distribution Width 12.8 12.7 White Blood Count 10.9 #H 14.8 #H Bedside Glucose 158 140 Anion Gap 17 H Blood Urea Nitrogen 55 H Calcium Level 8.8 Carbon Dioxide Level 23 Chloride Level 100 Creatinine 7.39 H Glucose Level 127 # Potassium Level 5.3 H Sodium Level 135 Test 07/01/16 11:07 07/01/16 16:52 Bedside Glucose 194 141 Medications Medications Current Medications IV Flush (NS 10 ml) 10 ml PRN PRN IV FLUSH LINE; Start 06/13/16 at 19:00 Aspirin (Halfprin) 81 mg DAILY PO Last administered on 07/01/16 08:32; Admin Dose 81 MG; Start 06/14/16 at 09:00 Atorvastatin Calcium (Lipitor) 10 mg QHS PO Last administered on 06/29/16 22: 01; Admin Dose 10 MG; Start 06/14/16 at 21:00 Cholecalciferol (Vitamin D) 400 units DAILY PO Last administered on 07/01/16 08:32; Admin Dose 400 UNITS; Start 06/14/16 at 09:00 Clopidogrel Bisulfate (plaVIX) 75 mg DAILY PO Last administered on 06/24/16 08 :36; Admin Dose 75 MG; Start 06/14/16 at 09:00; Status Future Hold Ferrous Sulfate (Ferrous Sulfate (Ec)) 325 mg BID PO Last administered on 08:32; Admin Dose 325 MG; Start 06/14/16 at 09:00 Acetaminophen (Tylenol Tab) 500 mg Q4H PRN PO PAIN AND OR ELEVATED TEMP Last administered on 06/22/16 11:29; Admin Dose 500 MG; Start 06/14/16 at 00:00 Heparin Sodium (Porcine) (Heparin (5000 Units/0.5 ml)) 5,000 unit BID SC Last administered on 07/01/16 08:34; Admin Dose 5,000 UNIT; Start 06/14/16 at 09:00 Miscellaneous Information 1 ea NOTE XX Last administered on 06/18/16 07:57; Admin Dose 1 EA; Start 06/14/16 at 00:30 Glucose (Glutose) 15 gm Q15M PRN PO DECREASED GLUCOSE; Start 06/14/16 at 00:30 Glucose (Glutose) 22.5 gm Q15M PRN PO DECREASED GLUCOSE; Start 06/14/16 at 00: 30 Dextrose (D50w Syringe) 25 ml Q15M PRN IV DECREASED GLUCOSE; Start 06/14/16 at 00:30 Dextrose (D50w Syringe) 50 ml Q15M PRN IV DECREASED GLUCOSE; Start 06/14/16 at 00:30 Glucagon (Glucagen) 1 mg Q15M PRN IM DECREASED GLUCOSE; Start 06/14/16 at 00:30 Glucose (Glutose) 15 gm Q15M PRN BUCCAL DECREASED GLUCOSE; Start 06/14/16 at 00 :30 Diagnostic Test (Pha) (Accucheck) 1 ea 02 XX Last administered on 06/23/16 02: 29; Admin Dose 1 EA; Start 06/14/16 at 02:00 Amlodipine Besylate (Norvasc) 5 mg BID PO Last administered on 06/29/16 22:02 ; Admin Dose 5 MG; Start 06/14/16 at 13:30 Clonidine (Catapres) 0.2 mg Q8 PRN PO Systolic >160 Last administered on 02:29; Admin Dose 0.2 MG; Start 06/14/16 at 13:00 Promethazine HCl/ Codeine (Phenergan/ Codeine) 5 ml Q4H PRN PO COUGH Last administered on 06/21/16 18:04; Admin Dose 5 ML; Start 06/15/16 at 00:00 Insulin Glargine (Lantus) 14 unit QHS SC Last administered on 06/23/16 20:31; Admin Dose 14 UNIT; Start 06/15/16 at 21:00; Status Future Hold Pantoprazole (Protonix Tab) 40 mg DAILY@06 PO Last administered on 06/30/16 05 :39; Admin Dose 40 MG; Start 06/16/16 at 06:00 Diphenhydramine HCl (Benadryl) 25 mg HS PRN PO INSOMNIA Last administered on 00:54; Admin Dose 25 MG; Start 06/15/16 at 21:30 Hydralazine HCl (Apresoline) 100 mg Q8 PO Last administered on 06/30/16 05:42 ; Admin Dose 100 MG; Start 06/19/16 at 13:00 Bisacodyl (Dulcolax) 10 mg DAILY PRN PO CONSTIPATION; Start 06/22/16 at 11:30 Benazepril HCl (Lotensin) 40 mg BID PO Last administered on 06/29/16 22:02; Admin Dose 40 MG; Start 06/23/16 at 21:00 Metoprolol Tartrate (Lopressor) 50 mg BID PO Last administered on 06/30/16 09: 18; Admin Dose 50 MG; Start 06/26/16 at 09:00 Hydralazine HCl (Apresoline) 20 mg Q4H PRN IV for SBP more than 170; Start at 05:00 Ondansetron HCl (Zofran Inj) 4 mg Q6H PRN IV NAUSEA AND/OR VOMITING Last administered on 07/01/16 07:39; Admin Dose 4 MG; Start 06/28/16 at 05:00 Lorazepam (Ativan) 1 mg Q6H PRN IV ANXIETY Last administered on 06/30/16 20:29 ; Admin Dose 1 MG; Start 06/28/16 at 05:00 Clonidine 0.1 mg 0.1 mg QID PO Last administered on 06/30/16 14:07; Admin Dose 0.1 MG; Start 06/28/16 at 13:00 Sodium Chloride (1/2 NS) 1,000 ml @ 40 mls/hr Q24H IV Last administered on 17:37; Admin Dose 40 MLS/HR; Start 06/29/16 at 18:00 Hydromorphone HCl (Dilaudid) 0.5 mg Q4H PRN IV PAIN Last administered on 11:05; Admin Dose 0.5 MG; Start 07/01/16 at 01:30 Hydromorphone HCl (Dilaudid) 1 mg Q3 PRN IV PAIN Last administered on 16:46; Admin Dose 1 MG; Start 07/01/16 at 14:00 LILIA FELIZ MD Jul 01, 2016 19:37
[2016-07-01] MEDS: ATORVASTATIN 10 MG TAB PO SCH (20:33)
--- NOTE | 2016-07-01 22:12 | CONS ---
Date/Time of Note Date/Time of Note DATE: 07/01/16 TIME: 22:10 Assessment/Plan Assessment/Plan Chief Complaint/Hosp Course ESRD HTN PNEUMONIA better PLEURAL EFFUSION s/p vats hyperkalemia PLAN PER CARDIO NON COMPLIANCE W HD hd refused hd 3 x wk HD T/THURSDAY PT REFUSED HD ON THURSDAY per pcp fluid res bp meds kayexalate Problems: Consultation Date/Type/Reason Admit Date/Time Jun 13, 2016 at 14:48 Type of Consultation: renal Referring Provider: EAV COX MD 24 HR Interval Summary Constitutional: other (refused hd) Exam/Review of Systems Vital Signs Vitals Vital Signs Date Time Temp Pulse Resp B/P Pulse Ox O2 Delivery O2 Flow Rate FiO2 07/01/16 21:00 76 20 142/50 99 Nasal Cannula 2.0 07/01/16 20:00 98.0 Intake and Output 06/30/16 06/30/16 07/01/16 15:00 23:00 07:00 Intake Total 0 ml 440 ml 320 ml Output Total 500 ml 540 ml Balance 0 ml -60 ml -220 ml Exam Neck: supple Respiratory: diminished breath sounds Cardiovascular: regular rate and rhythm Gastrointestinal: bowel sounds (+), soft Extremities: edema (tr) Results Result Diagram: 07/01/16 0416 07/01/16 0416 Results 24 hrs Laboratory Tests Test 06/30/16 22:20 07/01/16 04:16 07/01/16 07:32 07/01/16 11:07 Bedside Glucose 158 140 194 Anion Gap 17 H Basophils # 0.1 Basophils % 0.4 Blood Urea Nitrogen 55 H Calcium Level 8.8 Carbon Dioxide Level 23 Chloride Level 100 Creatinine 7.39 H Eosinophils # 0.0 Eosinophils % 0.1 Glucose Level 127 # Hematocrit 27.2 L Hemoglobin 9.1 L Lymphocytes # 0.5 L Lymphocytes % 3.4 L Mean Corpuscular Hemoglobin 33.2 H Mean Corpuscular Hemoglobin Concent 33.5 Mean Corpuscular Volume 99.3 Mean Platelet Volume 10.2 Monocytes # 1.1 H Monocytes % 7.1 Neutrophils # 13.1 H Neutrophils % 88.3 H Nucleated Red Blood Cells # 0.0 Nucleated Red Blood Cells % 0.1 H Platelet Count 207 Potassium Level 5.3 H Red Blood Count 2.74 L Red Cell Distribution Width 12.7 Sodium Level 135 White Blood Count 14.8 #H Test 07/01/16 16:52 07/01/16 20:28 Bedside Glucose 141 121 Medications Medications Current Medications IV Flush (NS 10 ml) 10 ml PRN PRN IV FLUSH LINE; Start 06/13/16 at 19:00 Aspirin (Halfprin) 81 mg DAILY PO Last administered on 07/01/16 08:32; Admin Dose 81 MG; Start 06/14/16 at 09:00 Atorvastatin Calcium (Lipitor) 10 mg QHS PO Last administered on 07/01/16 20: 33; Admin Dose 10 MG; Start 06/14/16 at 21:00 Cholecalciferol (Vitamin D) 400 units DAILY PO Last administered on 07/01/16 08:32; Admin Dose 400 UNITS; Start 06/14/16 at 09:00 Clopidogrel Bisulfate (plaVIX) 75 mg DAILY PO Last administered on 06/24/16 08 :36; Admin Dose 75 MG; Start 06/14/16 at 09:00; Status Future Hold Ferrous Sulfate (Ferrous Sulfate (Ec)) 325 mg BID PO Last administered on 20:33; Admin Dose 325 MG; Start 06/14/16 at 09:00 Acetaminophen (Tylenol Tab) 500 mg Q4H PRN PO PAIN AND OR ELEVATED TEMP Last administered on 06/22/16 11:29; Admin Dose 500 MG; Start 06/14/16 at 00:00 Heparin Sodium (Porcine) (Heparin (5000 Units/0.5 ml)) 5,000 unit BID SC Last administered on 07/01/16 20:32; Admin Dose 5,000 UNIT; Start 06/14/16 at 09:00 Miscellaneous Information 1 ea NOTE XX Last administered on 06/18/16 07:57; Admin Dose 1 EA; Start 06/14/16 at 00:30 Glucose (Glutose) 15 gm Q15M PRN PO DECREASED GLUCOSE; Start 06/14/16 at 00:30 Glucose (Glutose) 22.5 gm Q15M PRN PO DECREASED GLUCOSE; Start 06/14/16 at 00: 30 Dextrose (D50w Syringe) 25 ml Q15M PRN IV DECREASED GLUCOSE; Start 06/14/16 at 00:30 Dextrose (D50w Syringe) 50 ml Q15M PRN IV DECREASED GLUCOSE; Start 06/14/16 at 00:30 Glucagon (Glucagen) 1 mg Q15M PRN IM DECREASED GLUCOSE; Start 06/14/16 at 00:30 Glucose (Glutose) 15 gm Q15M PRN BUCCAL DECREASED GLUCOSE; Start 06/14/16 at 00 :30 Diagnostic Test (Pha) (Accucheck) 1 ea 02 XX Last administered on 06/23/16 02: 29; Admin Dose 1 EA; Start 06/14/16 at 02:00 Amlodipine Besylate (Norvasc) 5 mg BID PO Last administered on 06/29/16 22:02 ; Admin Dose 5 MG; Start 06/14/16 at 13:30 Clonidine (Catapres) 0.2 mg Q8 PRN PO Systolic >160 Last administered on 02:29; Admin Dose 0.2 MG; Start 06/14/16 at 13:00 Promethazine HCl/ Codeine (Phenergan/ Codeine) 5 ml Q4H PRN PO COUGH Last administered on 06/21/16 18:04; Admin Dose 5 ML; Start 06/15/16 at 00:00 Insulin Glargine (Lantus) 14 unit QHS SC Last administered on 06/23/16 20:31; Admin Dose 14 UNIT; Start 06/15/16 at 21:00; Status Future Hold Pantoprazole (Protonix Tab) 40 mg DAILY@06 PO Last administered on 06/30/16 05 :39; Admin Dose 40 MG; Start 06/16/16 at 06:00 Diphenhydramine HCl (Benadryl) 25 mg HS PRN PO INSOMNIA Last administered on 00:54; Admin Dose 25 MG; Start 06/15/16 at 21:30 Hydralazine HCl (Apresoline) 100 mg Q8 PO Last administered on 07/01/16 22:05 ; Admin Dose 100 MG; Start 06/19/16 at 13:00 Bisacodyl (Dulcolax) 10 mg DAILY PRN PO CONSTIPATION; Start 06/22/16 at 11:30 Benazepril HCl (Lotensin) 40 mg BID PO Last administered on 07/01/16 20:35; Admin Dose 40 MG; Start 06/23/16 at 21:00 Metoprolol Tartrate (Lopressor) 50 mg BID PO Last administered on 06/30/16 09: 18; Admin Dose 50 MG; Start 06/26/16 at 09:00 Hydralazine HCl (Apresoline) 20 mg Q4H PRN IV for SBP more than 170; Start at 05:00 Ondansetron HCl (Zofran Inj) 4 mg Q6H PRN IV NAUSEA AND/OR VOMITING Last administered on 07/01/16 20:44; Admin Dose 4 MG; Start 06/28/16 at 05:00 Lorazepam (Ativan) 1 mg Q6H PRN IV ANXIETY Last administered on 06/30/16 20:29 ; Admin Dose 1 MG; Start 06/28/16 at 05:00 Clonidine 0.1 mg 0.1 mg QID PO Last administered on 06/30/16 14:07; Admin Dose 0.1 MG; Start 06/28/16 at 13:00 Sodium Chloride (1/2 NS) 1,000 ml @ 40 mls/hr Q24H IV Last administered on 17:37; Admin Dose 40 MLS/HR; Start 06/29/16 at 18:00 Hydromorphone HCl (Dilaudid) 0.5 mg Q4H PRN IV PAIN Last administered on 11:05; Admin Dose 0.5 MG; Start 07/01/16 at 01:30 Hydromorphone HCl (Dilaudid) 1 mg Q3 PRN IV PAIN Last administered on 20:37; Admin Dose 1 MG; Start 07/01/16 at 14:00 PAOLA MOODY MD Jul 01, 2016 22:12
[2016-07-01] MEDS ORDERED: NA POLYST SULFON 15 GM/60 ML BTL PO ONE (22:30)
[2016-07-02] VITALS (20 sets, daily range): BP systolic 95–170; BP diastolic 45–81; PULSE 62–85; RESP 16–23
[2016-07-02] MEDS: ACETAMINOPHEN 500 MG TAB PO PRN (00:32)
[2016-07-02] MEDS: SOD CHLORIDE 0.45% 1,000 ML IV SCH (01:46)
[2016-07-02] MEDS: LORAZEPAM 2 MG INJ IV PRN (01:46)
[2016-07-02] MEDS: ACCU-CHEK XX SCH ×5 (02:00→21:52)
[2016-07-02] MEDS: PANTOPRAZOLE (EC) 40 MG TAB PO SCH (05:43)
[2016-07-02] MEDS: CALCIUM ACETATE 667 MG CAP PO SCH ×3 (08:00→18:09)
[2016-07-02] MEDS: INSULIN ASPART [NOVOLOG] 3 ML PEN SC SCH ×4 (08:00→20:33)
[2016-07-02] MEDS: LEVALBUTEROL (HFA) 15 GM INHALER INH SCH ×3 (08:00→16:41)
[2016-07-02] MEDS: SEVELAMER CARBONATE 0.8 GM PKT PO SCH ×3 (08:00→18:10)
[2016-07-02] MEDS: ASPIRIN (EC) 81 MG TAB PO SCH (09:00)
[2016-07-02] MEDS: BENAZEPRIL 40 MG TAB PO SCH ×2 (09:00→20:27)
[2016-07-02] MEDS: METOPROLOL 25 MG TAB PO SCH ×2 (09:00→20:27)
[2016-07-02] MEDS: FERROUS SULFATE (EC) 325 MG TAB PO SCH ×2 (09:00→20:26)
[2016-07-02] MEDS: AMLODIPINE 5 MG TAB PO SCH ×2 (09:00→20:26)
[2016-07-02] MEDS: CHOLECALCIFEROL 400 UNITS TAB PO SCH (09:00)
[2016-07-02] MEDS: HEPARIN 5,000 UNIT/0.5 ML SYG SC SCH ×2 (09:00→20:30)
[2016-07-02] MEDS: HYDROmorphONE 1 MG/ML SYG IV PRN ×5 (09:11→23:08)
--- NOTE | 2016-07-02 11:51 | PN ---
DATE: 07/02/2016 SUBJECTIVE: Patient DARREN remains stable this morning. No new events. He underwent decortication y , notes which are pending. PHYSICAL EXAMINATION: VITAL SIGNS: Temperature 98, pulse is 71, blood pressure 131/60, O2 saturation 96% on 2 L nasal can nula. NECK: Supple. No JVD or lymphadenopathy. CARDIAC: S1, S2, no added sounds or murmurs. CHEST: Diminished air entry bilaterally. ABDOMEN: Soft, nontender. No guarding or rebound. EXTREMITIES: No edema. NEUROLOGIC: Grossly intact. No focal deficits. LABORATORIES: White count 14.8, hemoglobin 9.1, platelets of 207. Chemistries pending. IMPRESSION AND PLAN: 1. Status post decortication, right loculated pleural effusion. 2. End-stage renal failure on hemodialysis. 3. History of diabetes. 4. History of hypertension. 5. History of coronary artery disease. PLAN: 1. Continue chest tube management per thoracic surgery. 2. Continue hemodialysis with volume removal. 3. Continue DVT and GI prophylaxis. Dictated By: MATILDE SHEPHERD/MANJIT Conf#: [id number] DID#: [id number]
[2016-07-02 13:39] LABS: ADD SCAN DIFF NO
[2016-07-02 13:41] LABS: ABNORMAL IP MESSAGE 1; BASOPHIL # 0.1 10^3/ul (0.0-0.1); BASOPHILS % 0.3 % (0.0-2.0); EOSINOPHILS # 0.1 10^3/ul (0.0-0.5); EOSINOPHILS % 0.6 % (0.0-7.0); HEMATOCRIT 27.5 % (42.0-52.0); HEMOGLOBIN 9.1 g/dl (14.0-18.0); LYMPHOCYTES # 0.9 10^3/ul (0.8-2.9); LYMPHOCYTES % 6.2 % (15.0-51.0); MEAN CORPUSCULAR HEMOGLOBIN 32.2 pg (29.0-33.0); MEAN CORPUSCULAR HGB CONC 33.1 g/dl (32.0-37.0); MEAN CORPUSCULAR VOLUME 97.2 fl (82.0-101.0); MEAN PLATELET VOLUME 9.9 fl (7.4-10.4); MONOCYTE # 1.5 10^3/ul (0.3-0.9); MONOCYTES % 10.5 % (0.0-11.0); NEUTROPHIL # 11.8 10^3/ul (1.6-7.5); NEUTROPHILS % 81.8 % (39.0-77.0); PLATELET COUNT 178 10^3/UL (140-415); RED BLOOD COUNT 2.83 10^6/ul (4.70-6.10); RED CELL DISTRIBUTION WIDTH 12.7 % (11.5-14.5); WHITE BLOOD COUNT 14.4 10^3/ul (4.8-10.8)
[2016-07-02 13:54] LABS: POTASSIUM 3.5 mmol/L (3.5-5.1)
[2016-07-02 13:56] LABS: CREATININE 3.98 mg/dl (0.61-1.24)
[2016-07-02 13:57] LABS: CALCIUM 8.1 mg/dl (8.4-10.2)
--- NOTE | 2016-07-02 14:41 | CONS ---
Date/Time of Note Date/Time of Note DATE: 07/02/16 TIME: 14:36 Assessment/Plan Assessment/Plan Chief Complaint/Hosp Course IMPRESSION: 1. Abnormal electrocardiogram, assess for acute coronary syndrome.-negative troponin x 3 2. History of recent negative stress, May 2015. 3. History of percutaneous transluminal coronary angioplasty and stent placement in 2014 to the left main left anterior descending. No current chest pain. 4. Hypertension, mildly elevated. 5. History of dyslipidemia. 6. Pleural effusion, status post thoracentesis. 7. Possible pneumonia/cough-improved 8. Diabetes mellitus. 9. End-stage renal disease, on hemodialysis. 10. Had WCT-06/27 which was paced beats at approx 100. NO recurrence since RECOMMENDATIONS: -Tele -Continue metoprolol -Continue Benazepril -Continue norvasc/hydralazine -Continue asa/statin -resume plavix when possible -Consider abx's and f/u cx data -Follow volume status with HD for volume removal Follow CT output closely Problems: Consultation Date/Type/Reason Admit Date/Time Jun 13, 2016 at 14:48 Initial Consult Date 06/14/2016 Type of Consultation: Cardiology Reason for Consultation HTN/abnl ecg Referring Provider: EVA COX MD Exam/Review of Systems Vital Signs Vitals Vital Signs Date Time Temp Pulse Resp B/P Pulse Ox O2 Delivery O2 Flow Rate FiO2 07/02/16 12:30 72 07/02/16 12:30 18 07/02/16 07:54 97.5 131/60 98 07/02/16 02:43 2.0 07/02/16 01:18 Nasal Cannula Intake and Output 07/01/16 07/01/16 07/02/16 15:00 23:00 07:00 Intake Total 420 ml 370 ml 40 ml Output Total 505 ml 855 ml 20 ml Balance -85 ml -485 ml 20 ml Exam Review of Systems: CONSTITUTIONAL: No fevers, chills. PULMONARY: No sob CARDIOVASCULAR: No chest pain/palpitations GASTROINTESTINAL: No nausea/vomiting. GENITOURINARY: No hematuria/dysuria. MUSCULOSKELETAL: No myagias/arthalgias. PSYCHIATRIC: The patient denies depression. NEUROLOGIC: No weakness Constitutional: alert, oriented Psych: no complaints Head: normocephalic ENMT: mucosa pink and moist Neck: jvd (9 cm water), supple Respiratory: diminished breath sounds (on R side) Cardiovascular: regular rate and rhythm Gastrointestinal: non-tender, soft Musculoskeletal: muscle tone (normal) Extremities: edema (none) Neurological: other (No focal deficits) Results Result Diagram: 07/02/16 1330 07/02/16 1330 Results 24 hrs Laboratory Tests Test 07/01/16 16:52 07/01/16 20:28 07/02/16 08:41 07/02/16 12:08 Bedside Glucose 141 121 142 187 Test 07/02/16 13:30 Anion Gap 13 Basophils # 0.1 Basophils % 0.3 Blood Urea Nitrogen 30 #H Calcium Level 8.1 L Carbon Dioxide Level 30 Chloride Level 97 Creatinine 3.98 #H Eosinophils # 0.1 Eosinophils % 0.6 Glucose Level 193 Hematocrit 27.5 L Hemoglobin 9.1 L Lymphocytes # 0.9 Lymphocytes % 6.2 L Mean Corpuscular Hemoglobin 32.2 Mean Corpuscular Hemoglobin Concent 33.1 Mean Corpuscular Volume 97.2 Mean Platelet Volume 9.9 Monocytes # 1.5 H Monocytes % 10.5 Neutrophils # 11.8 H Neutrophils % 81.8 H Nucleated Red Blood Cells # 0.0 Nucleated Red Blood Cells % 0.0 Platelet Count 178 Potassium Level 3.5 Red Blood Count 2.83 L Red Cell Distribution Width 12.7 Sodium Level 136 White Blood Count 14.4 H Medications Medications Current Medications IV Flush (NS 10 ml) 10 ml PRN PRN IV FLUSH LINE; Start 06/13/16 at 19:00 Aspirin (Halfprin) 81 mg DAILY PO Last administered on 07/01/16 08:32; Admin Dose 81 MG; Start 06/14/16 at 09:00 Atorvastatin Calcium (Lipitor) 10 mg QHS PO Last administered on 07/01/16 20: 33; Admin Dose 10 MG; Start 06/14/16 at 21:00 Cholecalciferol (Vitamin D) 400 units DAILY PO Last administered on 07/01/16 08:32; Admin Dose 400 UNITS; Start 06/14/16 at 09:00 Clopidogrel Bisulfate (plaVIX) 75 mg DAILY PO Last administered on 06/24/16 08 :36; Admin Dose 75 MG; Start 06/14/16 at 09:00; Status Future Hold Ferrous Sulfate (Ferrous Sulfate (Ec)) 325 mg BID PO Last administered on 20:33; Admin Dose 325 MG; Start 06/14/16 at 09:00 Acetaminophen (Tylenol Tab) 500 mg Q4H PRN PO PAIN AND OR ELEVATED TEMP Last administered on 07/02/16 00:32; Admin Dose 500 MG; Start 06/14/16 at 00:00 Heparin Sodium (Porcine) (Heparin (5000 Units/0.5 ml)) 5,000 unit BID SC Last administered on 07/01/16 20:32; Admin Dose 5,000 UNIT; Start 06/14/16 at 09:00 Miscellaneous Information 1 ea NOTE XX Last administered on 06/18/16 07:57; Admin Dose 1 EA; Start 06/14/16 at 00:30 Glucose (Glutose) 15 gm Q15M PRN PO DECREASED GLUCOSE; Start 06/14/16 at 00:30 Glucose (Glutose) 22.5 gm Q15M PRN PO DECREASED GLUCOSE; Start 06/14/16 at 00: 30 Dextrose (D50w Syringe) 25 ml Q15M PRN IV DECREASED GLUCOSE; Start 06/14/16 at 00:30 Dextrose (D50w Syringe) 50 ml Q15M PRN IV DECREASED GLUCOSE; Start 06/14/16 at 00:30 Glucagon (Glucagen) 1 mg Q15M PRN IM DECREASED GLUCOSE; Start 06/14/16 at 00:30 Glucose (Glutose) 15 gm Q15M PRN BUCCAL DECREASED GLUCOSE; Start 06/14/16 at 00 :30 Diagnostic Test (Pha) (Accucheck) 1 ea 02 XX Last administered on 06/23/16 02: 29; Admin Dose 1 EA; Start 06/14/16 at 02:00 Amlodipine Besylate (Norvasc) 5 mg BID PO Last administered on 06/29/16 22:02 ; Admin Dose 5 MG; Start 06/14/16 at 13:30 Clonidine (Catapres) 0.2 mg Q8 PRN PO Systolic >160 Last administered on 02:29; Admin Dose 0.2 MG; Start 06/14/16 at 13:00 Promethazine HCl/ Codeine (Phenergan/ Codeine) 5 ml Q4H PRN PO COUGH Last administered on 06/21/16 18:04; Admin Dose 5 ML; Start 06/15/16 at 00:00 Insulin Glargine (Lantus) 14 unit QHS SC Last administered on 06/23/16 20:31; Admin Dose 14 UNIT; Start 06/15/16 at 21:00; Status Future Hold Pantoprazole (Protonix Tab) 40 mg DAILY@06 PO Last administered on 07/02/16 05: 43; Admin Dose 40 MG; Start 06/16/16 at 06:00 Diphenhydramine HCl (Benadryl) 25 mg HS PRN PO INSOMNIA Last administered on 00:54; Admin Dose 25 MG; Start 06/15/16 at 21:30 Hydralazine HCl (Apresoline) 100 mg Q8 PO Last administered on 07/01/16 22:05 ; Admin Dose 100 MG; Start 06/19/16 at 13:00 Bisacodyl (Dulcolax) 10 mg DAILY PRN PO CONSTIPATION; Start 06/22/16 at 11:30 Benazepril HCl (Lotensin) 40 mg BID PO Last administered on 07/01/16 20:35; Admin Dose 40 MG; Start 06/23/16 at 21:00 Metoprolol Tartrate (Lopressor) 50 mg BID PO Last administered on 06/30/16 09: 18; Admin Dose 50 MG; Start 06/26/16 at 09:00 Hydralazine HCl (Apresoline) 20 mg Q4H PRN IV for SBP more than 170; Start at 05:00 Ondansetron HCl (Zofran Inj) 4 mg Q6H PRN IV NAUSEA AND/OR VOMITING Last administered on 07/01/16 20:44; Admin Dose 4 MG; Start 06/28/16 at 05:00 Lorazepam (Ativan) 1 mg Q6H PRN IV ANXIETY Last administered on 07/02/16 01:46 ; Admin Dose 1 MG; Start 06/28/16 at 05:00 Clonidine 0.1 mg 0.1 mg QID PO Last administered on 06/30/16 14:07; Admin Dose 0.1 MG; Start 06/28/16 at 13:00 Sodium Chloride (1/2 NS) 1,000 ml @ 40 mls/hr Q24H IV Last administered on 07/02 01:46; Admin Dose 40 MLS/HR; Start 06/29/16 at 18:00 Hydromorphone HCl (Dilaudid) 0.5 mg Q4H PRN IV PAIN Last administered on 11:05; Admin Dose 0.5 MG; Start 07/01/16 at 01:30 Hydromorphone HCl (Dilaudid) 1 mg Q3 PRN IV PAIN Last administered on 07/02/16 13:27; Admin Dose 1 MG; Start 07/01/16 at 14:00 SHERITA SCOTT Jul 02, 2016 14:41
[2016-07-02] MEDS: BISACODYL (EC) 5 MG TAB PO PRN (16:40)
--- NOTE | 2016-07-02 17:35 | PN ---
Date/Time of Note Date/Time of Note DATE: 07/02/16 TIME: 17:34 Assessment/Plan Lines/Catheters IV Catheter Type (from Nrsg): PICC Line Jonas in Place (from Nrsg): Yes Assessment/Plan Chief Complaint/Hosp Course IMPRESSION: Bilateral pleural effusions status post thoracentesis with much improvement. SP VATS Decortication CT [address] sxn Problems: Subjective 24 Hr Interval Summary Constitutional: improved Pain Control: mild Exam/Review of Systems Vital Signs Vitals Vital Signs Date Time Temp Pulse Resp B/P Pulse Ox O2 Delivery O2 Flow Rate FiO2 07/02/16 16:09 77 07/02/16 12:30 18 07/02/16 07:54 97.5 131/60 98 07/02/16 02:43 2.0 07/02/16 01:18 Nasal Cannula Intake and Output 07/01/16 07/01/16 07/02/16 15:00 23:00 07:00 Intake Total 420 ml 370 ml 40 ml Output Total 505 ml 855 ml 20 ml Balance -85 ml -485 ml 20 ml Exam Respiratory: clear to auscultation, normal air movement Cardiovascular: nl pulses, regular rate and rhythm Gastrointestinal: nl liver, spleen, non-tender, soft Results Result Diagram: 07/02/16 1330 07/02/16 1330 LILIA FELIZ MD Jul 02, 2016 17:35
--- NOTE | 2016-07-02 18:47 | PN ---
Date/Time of Note Date/Time of Note DATE: 07/02/16 TIME: 18:46 Assessment/Plan VTE Prophylaxis VTE Prophylaxis Intervention: SCD's Lines/Catheters [facility] P[facility] Line Central line still needed: Yes Urinary Cath still in place: Yes Reason Cath still needed: urinary retention Assessment/Plan Chief Complaint/Hosp Course Assessment and plan - Recurrent pleural effusions. Dr. Martinez is following in thoracic surgery consultation. S/p VATS 06/30. Follow-up on intraoperative cultures. - Right pleural effusion, status post thoracentesis. Dr. Dale is following in pulmonology consultation. - End-stage renal disease, continue hemodialysis. Dr. Saunders is following in nephrology consultation. - Diabetes mellitus type 2, continue Lantus and NovoLog - Hypertension. Dr. De Santiago is following and cardiology consultation. - Coronary artery disease, status post coronary artery bypass graft. - Permanent pacemaker. No acute issues. - Dyslipidemia. Continue Lipitor. Continue heparin for deep venous thrombosis prophylaxis and Protonix for peptic ulcer disease prophylaxis. Further recommendations based on clinical course. Plan of care discussed with Dr. Price. Problems: Subjective 24 Hr Interval Summary Free Text/Dictation Patient is sitting at the bedside eating dinner, chest tube was minimal drainage , patient is comfortable and supplemental oxygen. Exam/Review of Systems Vital Signs Vitals Vital Signs Date Time Temp Pulse Resp B/P Pulse Ox O2 Delivery O2 Flow Rate FiO2 07/02/16 18:24 2.0 07/02/16 16:09 77 07/02/16 12:30 18 07/02/16 07:54 97.5 131/60 98 07/02/16 01:18 Nasal Cannula Intake and Output 07/01/16 07/01/16 07/02/16 15:00 23:00 07:00 Intake Total 420 ml 370 ml 40 ml Output Total 505 ml 855 ml 20 ml Balance -85 ml -485 ml 20 ml Exam Constitutional: alert Psych: no complaints Head: atraumatic, normocephalic Eyes: nl conjunctiva ENMT: nl external ears & nose Neck: non-tender, supple Respiratory: clear to auscultation, R chest tube Cardiovascular: nl pulses Gastrointestinal: non-tender, soft Musculoskeletal: nl extremities to inspection Extremities: normal pulses Neurological: [employer] II-XII intact Skin: nl turgor Results Result Diagram: 07/02/16 1330 07/02/16 1330 Results 24 hrs Laboratory Tests Test 07/01/16 20:28 07/02/16 08:41 07/02/16 12:08 07/02/16 13:30 Bedside Glucose 121 142 187 Anion Gap 13 Basophils # 0.1 Basophils % 0.3 Blood Urea Nitrogen 30 #H Calcium Level 8.1 L Carbon Dioxide Level 30 Chloride Level 97 Creatinine 3.98 #H Eosinophils # 0.1 Eosinophils % 0.6 Glucose Level 193 Hematocrit 27.5 L Hemoglobin 9.1 L Lymphocytes # 0.9 Lymphocytes % 6.2 L Mean Corpuscular Hemoglobin 32.2 Mean Corpuscular Hemoglobin Concent 33.1 Mean Corpuscular Volume 97.2 Mean Platelet Volume 9.9 Monocytes # 1.5 H Monocytes % 10.5 Neutrophils # 11.8 H Neutrophils % 81.8 H Nucleated Red Blood Cells # 0.0 Nucleated Red Blood Cells % 0.0 Platelet Count 178 Potassium Level 3.5 Red Blood Count 2.83 L Red Cell Distribution Width 12.7 Sodium Level 136 White Blood Count 14.4 H Test 07/02/16 18:00 Bedside Glucose 161 Medications Medications Current Medications IV Flush (NS 10 ml) 10 ml PRN PRN IV FLUSH LINE; Start 06/13/16 at 19:00 Aspirin (Halfprin) 81 mg DAILY PO Last administered on 07/01/16 08:32; Admin Dose 81 MG; Start 06/14/16 at 09:00 Atorvastatin Calcium (Lipitor) 10 mg QHS PO Last administered on 07/01/16 20: 33; Admin Dose 10 MG; Start 06/14/16 at 21:00 Cholecalciferol (Vitamin D) 400 units DAILY PO Last administered on 07/01/16 08:32; Admin Dose 400 UNITS; Start 06/14/16 at 09:00 Clopidogrel Bisulfate (plaVIX) 75 mg DAILY PO Last administered on 06/24/16 08 :36; Admin Dose 75 MG; Start 06/14/16 at 09:00; Status Future Hold Ferrous Sulfate (Ferrous Sulfate (Ec)) 325 mg BID PO Last administered on 20:33; Admin Dose 325 MG; Start 06/14/16 at 09:00 Acetaminophen (Tylenol Tab) 500 mg Q4H PRN PO PAIN AND OR ELEVATED TEMP Last administered on 07/02/16 00:32; Admin Dose 500 MG; Start 06/14/16 at 00:00 Heparin Sodium (Porcine) (Heparin (5000 Units/0.5 ml)) 5,000 unit BID SC Last administered on 07/01/16 20:32; Admin Dose 5,000 UNIT; Start 06/14/16 at 09:00 Miscellaneous Information 1 ea NOTE XX Last administered on 06/18/16 07:57; Admin Dose 1 EA; Start 06/14/16 at 00:30 Glucose (Glutose) 15 gm Q15M PRN PO DECREASED GLUCOSE; Start 06/14/16 at 00:30 Glucose (Glutose) 22.5 gm Q15M PRN PO DECREASED GLUCOSE; Start 06/14/16 at 00: 30 Dextrose (D50w Syringe) 25 ml Q15M PRN IV DECREASED GLUCOSE; Start 06/14/16 at 00:30 Dextrose (D50w Syringe) 50 ml Q15M PRN IV DECREASED GLUCOSE; Start 06/14/16 at 00:30 Glucagon (Glucagen) 1 mg Q15M PRN IM DECREASED GLUCOSE; Start 06/14/16 at 00:30 Glucose (Glutose) 15 gm Q15M PRN BUCCAL DECREASED GLUCOSE; Start 06/14/16 at 00 :30 Diagnostic Test (Pha) (Accucheck) 1 ea 02 XX Last administered on 06/23/16 02: 29; Admin Dose 1 EA; Start 06/14/16 at 02:00 Amlodipine Besylate (Norvasc) 5 mg BID PO Last administered on 06/29/16 22:02 ; Admin Dose 5 MG; Start 06/14/16 at 13:30 Clonidine (Catapres) 0.2 mg Q8 PRN PO Systolic >160 Last administered on 02:29; Admin Dose 0.2 MG; Start 06/14/16 at 13:00 Promethazine HCl/ Codeine (Phenergan/ Codeine) 5 ml Q4H PRN PO COUGH Last administered on 06/21/16 18:04; Admin Dose 5 ML; Start 06/15/16 at 00:00 Insulin Glargine (Lantus) 14 unit QHS SC Last administered on 06/23/16 20:31; Admin Dose 14 UNIT; Start 06/15/16 at 21:00; Status Future Hold Pantoprazole (Protonix Tab) 40 mg DAILY@06 PO Last administered on 07/02/16 05: 43; Admin Dose 40 MG; Start 06/16/16 at 06:00 Diphenhydramine HCl (Benadryl) 25 mg HS PRN PO INSOMNIA Last administered on 00:54; Admin Dose 25 MG; Start 06/15/16 at 21:30 Hydralazine HCl (Apresoline) 100 mg Q8 PO Last administered on 07/02/16 16:41; Admin Dose 100 MG; Start 06/19/16 at 13:00 Bisacodyl (Dulcolax) 10 mg DAILY PRN PO CONSTIPATION Last administered on 16:40; Admin Dose 10 MG; Start 06/22/16 at 11:30 Benazepril HCl (Lotensin) 40 mg BID PO Last administered on 07/01/16 20:35; Admin Dose 40 MG; Start 06/23/16 at 21:00 Metoprolol Tartrate (Lopressor) 50 mg BID PO Last administered on 06/30/16 09: 18; Admin Dose 50 MG; Start 06/26/16 at 09:00 Hydralazine HCl (Apresoline) 20 mg Q4H PRN IV for SBP more than 170; Start at 05:00 Ondansetron HCl (Zofran Inj) 4 mg Q6H PRN IV NAUSEA AND/OR VOMITING Last administered on 07/01/16 20:44; Admin Dose 4 MG; Start 06/28/16 at 05:00 Lorazepam (Ativan) 1 mg Q6H PRN IV ANXIETY Last administered on 07/02/16 01:46 ; Admin Dose 1 MG; Start 06/28/16 at 05:00 Clonidine 0.1 mg 0.1 mg QID PO Last administered on 07/02/16 18:10; Admin Dose 0.1 MG; Start 06/28/16 at 13:00 Sodium Chloride (1/2 NS) 1,000 ml @ 40 mls/hr Q24H IV Last administered on 07/02 01:46; Admin Dose 40 MLS/HR; Start 06/29/16 at 18:00 Hydromorphone HCl (Dilaudid) 0.5 mg Q4H PRN IV PAIN Last administered on 11:05; Admin Dose 0.5 MG; Start 07/01/16 at 01:30 Hydromorphone HCl (Dilaudid) 1 mg Q3 PRN IV PAIN Last administered on 07/02/16 16:40; Admin Dose 1 MG; Start 07/01/16 at 14:00 CECILIA DAMICO Jul 02, 2016 18:47
[2016-07-02] MEDS: ATORVASTATIN 10 MG TAB PO SCH (20:26)
--- NOTE | 2016-07-02 20:32 | CONS ---
Date/Time of Note Date/Time of Note DATE: 07/02/16 TIME: 20:31 Assessment/Plan Assessment/Plan Chief Complaint/Hosp Course ESRD HTN PNEUMONIA better PLEURAL EFFUSION s/p vats hyperkalemia PLAN PER CARDIO NON COMPLIANCE W HD hd refused hd 3 x wk HD T/THURSDAY PT REFUSED HD ON THURSDAY per pcp fluid res bp meds Problems: Consultation Date/Type/Reason Admit Date/Time Jun 13, 2016 at 14:48 Type of Consultation: renal Referring Provider: EVA COX MD 24 HR Interval Summary Constitutional: other (seen on hd) Exam/Review of Systems Vital Signs Vitals Vital Signs Date Time Temp Pulse Resp B/P Pulse Ox O2 Delivery O2 Flow Rate FiO2 07/02/16 20:13 Nasal Cannula 2.0 07/02/16 16:09 77 07/02/16 16:00 98.0 18 138/64 97 Intake and Output 07/01/16 07/01/16 07/02/16 15:00 23:00 07:00 Intake Total 420 ml 370 ml 40 ml Output Total 505 ml 855 ml 20 ml Balance -85 ml -485 ml 20 ml Exam Neck: supple Respiratory: diminished breath sounds Cardiovascular: regular rate and rhythm Gastrointestinal: soft Extremities: No edema Results Result Diagram: 07/02/16 1330 07/02/16 1330 Results 24 hrs Laboratory Tests Test 07/02/16 08:41 07/02/16 12:08 07/02/16 13:30 07/02/16 18:00 Bedside Glucose 142 187 161 Anion Gap 13 Basophils # 0.1 Basophils % 0.3 Blood Urea Nitrogen 30 #H Calcium Level 8.1 L Carbon Dioxide Level 30 Chloride Level 97 Creatinine 3.98 #H Eosinophils # 0.1 Eosinophils % 0.6 Glucose Level 193 Hematocrit 27.5 L Hemoglobin 9.1 L Lymphocytes # 0.9 Lymphocytes % 6.2 L Mean Corpuscular Hemoglobin 32.2 Mean Corpuscular Hemoglobin Concent 33.1 Mean Corpuscular Volume 97.2 Mean Platelet Volume 9.9 Monocytes # 1.5 H Monocytes % 10.5 Neutrophils # 11.8 H Neutrophils % 81.8 H Nucleated Red Blood Cells # 0.0 Nucleated Red Blood Cells % 0.0 Platelet Count 178 Potassium Level 3.5 Red Blood Count 2.83 L Red Cell Distribution Width 12.7 Sodium Level 136 White Blood Count 14.4 H Medications Medications Current Medications IV Flush (NS 10 ml) 10 ml PRN PRN IV FLUSH LINE; Start 06/13/16 at 19:00 Aspirin (Halfprin) 81 mg DAILY PO Last administered on 07/01/16 08:32; Admin Dose 81 MG; Start 06/14/16 at 09:00 Atorvastatin Calcium (Lipitor) 10 mg QHS PO Last administered on 07/01/16 20: 33; Admin Dose 10 MG; Start 06/14/16 at 21:00 Cholecalciferol (Vitamin D) 400 units DAILY PO Last administered on 07/01/16 08:32; Admin Dose 400 UNITS; Start 06/14/16 at 09:00 Clopidogrel Bisulfate (plaVIX) 75 mg DAILY PO Last administered on 06/24/16 08 :36; Admin Dose 75 MG; Start 06/14/16 at 09:00; Status Future Hold Ferrous Sulfate (Ferrous Sulfate (Ec)) 325 mg BID PO Last administered on 20:33; Admin Dose 325 MG; Start 06/14/16 at 09:00 Acetaminophen (Tylenol Tab) 500 mg Q4H PRN PO PAIN AND OR ELEVATED TEMP Last administered on 07/02/16 00:32; Admin Dose 500 MG; Start 06/14/16 at 00:00 Heparin Sodium (Porcine) (Heparin (5000 Units/0.5 ml)) 5,000 unit BID SC Last administered on 07/01/16 20:32; Admin Dose 5,000 UNIT; Start 06/14/16 at 09:00 Miscellaneous Information 1 ea NOTE XX Last administered on 06/18/16 07:57; Admin Dose 1 EA; Start 06/14/16 at 00:30 Glucose (Glutose) 15 gm Q15M PRN PO DECREASED GLUCOSE; Start 06/14/16 at 00:30 Glucose (Glutose) 22.5 gm Q15M PRN PO DECREASED GLUCOSE; Start 06/14/16 at 00: 30 Dextrose (D50w Syringe) 25 ml Q15M PRN IV DECREASED GLUCOSE; Start 06/14/16 at 00:30 Dextrose (D50w Syringe) 50 ml Q15M PRN IV DECREASED GLUCOSE; Start 06/14/16 at 00:30 Glucagon (Glucagen) 1 mg Q15M PRN IM DECREASED GLUCOSE; Start 06/14/16 at 00:30 Glucose (Glutose) 15 gm Q15M PRN BUCCAL DECREASED GLUCOSE; Start 06/14/16 at 00 :30 Diagnostic Test (Pha) (Accucheck) 1 ea 02 XX Last administered on 06/23/16 02: 29; Admin Dose 1 EA; Start 06/14/16 at 02:00 Amlodipine Besylate (Norvasc) 5 mg BID PO Last administered on 06/29/16 22:02 ; Admin Dose 5 MG; Start 06/14/16 at 13:30 Clonidine (Catapres) 0.2 mg Q8 PRN PO Systolic >160 Last administered on 02:29; Admin Dose 0.2 MG; Start 06/14/16 at 13:00 Promethazine HCl/ Codeine (Phenergan/ Codeine) 5 ml Q4H PRN PO COUGH Last administered on 06/21/16 18:04; Admin Dose 5 ML; Start 06/15/16 at 00:00 Insulin Glargine (Lantus) 14 unit QHS SC Last administered on 06/23/16 20:31; Admin Dose 14 UNIT; Start 06/15/16 at 21:00; Status Future Hold Pantoprazole (Protonix Tab) 40 mg DAILY@06 PO Last administered on 07/02/16 05: 43; Admin Dose 40 MG; Start 06/16/16 at 06:00 Diphenhydramine HCl (Benadryl) 25 mg HS PRN PO INSOMNIA Last administered on 00:54; Admin Dose 25 MG; Start 06/15/16 at 21:30 Hydralazine HCl (Apresoline) 100 mg Q8 PO Last administered on 07/02/16 16:41; Admin Dose 100 MG; Start 06/19/16 at 13:00 Bisacodyl (Dulcolax) 10 mg DAILY PRN PO CONSTIPATION Last administered on 16:40; Admin Dose 10 MG; Start 06/22/16 at 11:30 Benazepril HCl (Lotensin) 40 mg BID PO Last administered on 07/01/16 20:35; Admin Dose 40 MG; Start 06/23/16 at 21:00 Metoprolol Tartrate (Lopressor) 50 mg BID PO Last administered on 06/30/16 09: 18; Admin Dose 50 MG; Start 06/26/16 at 09:00 Hydralazine HCl (Apresoline) 20 mg Q4H PRN IV for SBP more than 170; Start at 05:00 Ondansetron HCl (Zofran Inj) 4 mg Q6H PRN IV NAUSEA AND/OR VOMITING Last administered on 07/01/16 20:44; Admin Dose 4 MG; Start 06/28/16 at 05:00 Lorazepam (Ativan) 1 mg Q6H PRN IV ANXIETY Last administered on 07/02/16 01:46 ; Admin Dose 1 MG; Start 06/28/16 at 05:00 Clonidine (Catapres) 0.1 mg QID PO Last administered on 07/02/16 18:10; Admin Dose 0.1 MG; Start 06/28/16 at 13:00 Hydromorphone HCl (Dilaudid) 0.5 mg Q4H PRN IV PAIN Last administered on 11:05; Admin Dose 0.5 MG; Start 07/01/16 at 01:30 Hydromorphone HCl (Dilaudid) 1 mg Q3 PRN IV PAIN Last administered on 07/02/16 20:08; Admin Dose 1 MG; Start 07/01/16 at 14:00 PAOLA MOODY MD Jul 02, 2016 20:32
[2016-07-03] VITALS (15 sets, daily range): BP systolic 115–134; BP diastolic 53–62; PULSE 69–100; RESP 16–20
[2016-07-03] MEDS: HYDROmorphONE 1 MG/ML SYG IV PRN ×5 (02:51→20:31)
[2016-07-03] MEDS: ACCU-CHEK XX SCH ×5 (03:10→21:12)
[2016-07-03] MEDS: PANTOPRAZOLE (EC) 40 MG TAB PO SCH (05:32)
[2016-07-03 06:37] LABS: ADD SCAN DIFF NO
[2016-07-03 06:47] LABS: ABNORMAL IP MESSAGE 1; BASOPHILS % 0.3 % (0.0-2.0); EOSINOPHILS # 0.1 10^3/ul (0.0-0.5); EOSINOPHILS % 0.5 % (0.0-7.0); HEMATOCRIT 24.4 % (42.0-52.0); HEMOGLOBIN 8.3 g/dl (14.0-18.0); LYMPHOCYTES # 0.8 10^3/ul (0.8-2.9); LYMPHOCYTES % 5.1 % (15.0-51.0); MEAN CORPUSCULAR HEMOGLOBIN 33.6 pg (29.0-33.0); MEAN CORPUSCULAR VOLUME 98.8 fl (82.0-101.0); MEAN PLATELET VOLUME 10.6 fl (7.4-10.4); MONOCYTE # 1.6 10^3/ul (0.3-0.9); MONOCYTES % 10.4 % (0.0-11.0); NEUTROPHIL # 12.8 10^3/ul (1.6-7.5); NEUTROPHILS % 83.1 % (39.0-77.0); PLATELET COUNT 174 10^3/UL (140-415); RED BLOOD COUNT 2.47 10^6/ul (4.70-6.10); RED CELL DISTRIBUTION WIDTH 12.8 % (11.5-14.5); WHITE BLOOD COUNT 15.4 10^3/ul (4.8-10.8)
[2016-07-03 06:53] LABS: POTASSIUM 4.5 mmol/L (3.5-5.1)
[2016-07-03 06:56] LABS: CALCIUM 8.3 mg/dl (8.4-10.2); CREATININE 6.13 mg/dl (0.61-1.24); PHOSPHORUS 4.6 mg/dl (2.5-4.9)
[2016-07-03 06:57] LABS: MAGNESIUM 2.1 mg/dl (1.7-2.5)
[2016-07-03] MEDS: LEVALBUTEROL (HFA) 15 GM INHALER INH SCH ×3 (08:00→16:00)
[2016-07-03] MEDS: SEVELAMER CARBONATE 0.8 GM PKT PO SCH ×3 (08:40→17:49)
[2016-07-03] MEDS: CALCIUM ACETATE 667 MG CAP PO SCH ×3 (08:40→17:49)
[2016-07-03] MEDS: INSULIN ASPART [NOVOLOG] 3 ML PEN SC SCH ×4 (08:43→20:58)
[2016-07-03] MEDS: CHOLECALCIFEROL 400 UNITS TAB PO SCH (10:04)
[2016-07-03] MEDS: METOPROLOL 25 MG TAB PO SCH ×2 (10:04→20:31)
[2016-07-03] MEDS: ASPIRIN (EC) 81 MG TAB PO SCH (10:05)
[2016-07-03] MEDS: BENAZEPRIL 40 MG TAB PO SCH ×2 (10:05→20:31)
[2016-07-03] MEDS: FERROUS SULFATE (EC) 325 MG TAB PO SCH ×2 (10:05→20:30)
[2016-07-03] MEDS: AMLODIPINE 5 MG TAB PO SCH ×2 (10:05→20:31)
[2016-07-03] MEDS: HEPARIN 5,000 UNIT/0.5 ML SYG SC SCH ×2 (10:07→20:38)
--- NOTE | 2016-07-03 10:11 | RADRPT ---
PROCEDURE: XR Chest. CLINICAL INDICATION: Pneumonia, CHF TECHNIQUE: A single AP view of the chest was obtained. COMPARISON: Chest x-ray dated 06/30/2016 FINDINGS: There is a left upper extremity PICC line, the tip is obscured by overlying left subclavian dual claudette mber pacemaker leads. A right chest tube is in place. There are right lower lobe alveolar and interstitial opacities. No pleural effusion or pneumothorax is seen. The cardiomediastinal silhouette is within normal limits for size. Calcifications are see n within the aortic arch. There are post cardiac surgery changes with sternotomy wires mediastinal clips. The osseous structures are unremarkable. IMPRESSION: 1. Right lower lobe interstitial and alveolar opacities may reflect a combination of atelectasis, p neumonia, and / or asymmetric edema. Findings are increased when compared to the prior examination. 2. No pneumothorax is seen. A right-sided chest tube remains in place. 3. Aortic atherosclerosis. 4. Tubes and lines, as described above. RPTAT: HH .Alcira Velasquez MD, Date Time Electronically viewed and signed by .Alcira Velasquez MD, on 07/03/2016 10:11 .G/
--- NOTE | 2016-07-03 12:28 | PN ---
Date/Time of Note Date/Time of Note DATE: 07/03/16 TIME: 12:26 Assessment/Plan VTE Prophylaxis VTE Prophylaxis Intervention: heparin, other Lines/Catheters IV Catheter Type (from [facility]): PICC Line Central line still needed: Yes Urinary Cath still in place: Yes Reason Cath still needed: urinary retention Assessment/Plan Assessment/Plan - Recurrent pleural effusions. - per Dr. Martinez in thoracic surgery consultation. - S/p VATS 06/30. - Follow-up on intraoperative cultures. - per pulmonary - Right pleural effusion, status post thoracentesis. - per Dr. Dale in pulmonology consultation. - End-stage renal disease, continue hemodialysis. - per Dr. Saunders in nephrology consultation. - Diabetes mellitus type 2, continue Lantus and NovoLog - Hypertension. - per Dr. De Santiago in cardiology consultation. - Coronary artery disease, status post coronary artery bypass graft. - Permanent pacemaker. No acute issues. - Dyslipidemia. Continue Lipitor. -Heparin for deep venous thrombosis prophylaxis -Protonix for peptic ulcer disease prophylaxis. Further recommendations based on clinical course. Plan of care discussed with Dr. Price. Subjective 24 Hr Interval Summary Constitutional: requiring IVF, requiring O2 Eyes: no complaints ENT: no complaints Respiratory: no complaints, shortness of breath Cardiovascular: no complaints Gastrointestinal: no complaints Genitourinary: no complaints Musculoskeletal: no complaints Skin: no complaints Neurologic: no complaints Endocrine: no complaints Lymphatic: no complaints Psychological: no complaints Immunologic: no complaints Exam/Review of Systems Vital Signs Vitals Vital Signs Date Time Temp Pulse Resp B/P Pulse Ox O2 Delivery O2 Flow Rate FiO2 07/03/16 12:25 72 07/03/16 08:07 99.4 16 128/62 98 07/02/16 22:36 2.0 07/02/16 20:13 Nasal Cannula Intake and Output 07/02/16 07/02/16 07/03/16 15:00 23:00 07:00 Intake Total 500 ml 740 ml 80 ml Output Total 2000 ml 400 ml 420 ml Balance -1500 ml 340 ml -340 ml Exam Constitutional: alert, oriented, well developed Psych: no complaints Head: atraumatic Eyes: EOMI, PERRL, nl sclera ENMT: nl external ears & nose Neck: non-tender Respiratory: diminished breath sounds (more on right than left. right chest dressing dry/intact), other (Right chest tube connected - to water seal drainage. DDI ) Cardiovascular: nl pulses Gastrointestinal: non-tender, soft Musculoskeletal: nl extremities to inspection Extremities: normal pulses Neurological: nl mental status, nl speech Skin: puncture Lymph: nontender Results Result Diagram: 07/03/16 0545 07/03/16 0545 Results 24 hrs Laboratory Tests Test 07/02/16 13:30 07/02/16 18:00 07/02/16 20:29 07/03/16 03:07 Anion Gap 13 Basophils # 0.1 Basophils % 0.3 Blood Urea Nitrogen 30 #H Calcium Level 8.1 L Carbon Dioxide Level 30 Chloride Level 97 Creatinine 3.98 #H Eosinophils # 0.1 Eosinophils % 0.6 Glucose Level 193 Hematocrit 27.5 L Hemoglobin 9.1 L Lymphocytes # 0.9 Lymphocytes % 6.2 L Mean Corpuscular Hemoglobin 32.2 Mean Corpuscular Hemoglobin Concent 33.1 Mean Corpuscular Volume 97.2 Mean Platelet Volume 9.9 Monocytes # 1.5 H Monocytes % 10.5 Neutrophils # 11.8 H Neutrophils % 81.8 H Nucleated Red Blood Cells # 0.0 Nucleated Red Blood Cells % 0.0 Platelet Count 178 Potassium Level 3.5 Red Blood Count 2.83 L Red Cell Distribution Width 12.7 Sodium Level 136 White Blood Count 14.4 H Bedside Glucose 161 198 153 Test 07/03/16 05:45 07/03/16 08:29 Anion Gap 16 Basophils # 0.0 Basophils % 0.3 Blood Urea Nitrogen 45 #H Calcium Level 8.3 L Carbon Dioxide Level 31 Chloride Level 92 L Creatinine 6.13 #H Eosinophils # 0.1 Eosinophils % 0.5 Glucose Level 146 # Hematocrit 24.4 L Hemoglobin 8.3 L Lymphocytes # 0.8 Lymphocytes % 5.1 L Magnesium Level 2.1 Mean Corpuscular Hemoglobin 33.6 H Mean Corpuscular Hemoglobin Concent 34.0 Mean Corpuscular Volume 98.8 Mean Platelet Volume 10.6 H Monocytes # 1.6 H Monocytes % 10.4 Neutrophils # 12.8 H Neutrophils % 83.1 H Nucleated Red Blood Cells # 0.0 Nucleated Red Blood Cells % 0.0 Phosphorus Level 4.6 Platelet Count 174 Potassium Level 4.5 Red Blood Count 2.47 L Red Cell Distribution Width 12.8 Sodium Level 134 L White Blood Count 15.4 H Bedside Glucose 152 Medications Medications Current Medications IV Flush (NS 10 ml) 10 ml PRN PRN IV FLUSH LINE; Start 06/13/16 at 19:00 Aspirin (Halfprin) 81 mg DAILY PO Last administered on 07/03/16 10:05; Admin Dose 81 MG; Start 06/14/16 at 09:00 Atorvastatin Calcium (Lipitor) 10 mg QHS PO Last administered on 07/02/16 20:26 ; Admin Dose 10 MG; Start 06/14/16 at 21:00 Cholecalciferol (Vitamin D) 400 units DAILY PO Last administered on 07/03/16 10 :04; Admin Dose 400 UNITS; Start 06/14/16 at 09:00 Clopidogrel Bisulfate (plaVIX) 75 mg DAILY PO Last administered on 06/24/16 08 :36; Admin Dose 75 MG; Start 06/14/16 at 09:00; Status Future Hold Ferrous Sulfate (Ferrous Sulfate (Ec)) 325 mg BID PO Last administered on 10:05; Admin Dose 325 MG; Start 06/14/16 at 09:00 Acetaminophen (Tylenol Tab) 500 mg Q4H PRN PO PAIN AND OR ELEVATED TEMP Last administered on 07/02/16 00:32; Admin Dose 500 MG; Start 06/14/16 at 00:00 Heparin Sodium (Porcine) (Heparin (5000 Units/0.5 ml)) 5,000 unit BID SC Last administered on 07/03/16 10:07; Admin Dose 5,000 UNIT; Start 06/14/16 at 09:00 Miscellaneous Information 1 ea NOTE XX Last administered on 06/18/16 07:57; Admin Dose 1 EA; Start 06/14/16 at 00:30 Glucose (Glutose) 15 gm Q15M PRN PO DECREASED GLUCOSE; Start 06/14/16 at 00:30 Glucose (Glutose) 22.5 gm Q15M PRN PO DECREASED GLUCOSE; Start 06/14/16 at 00: 30 Dextrose (D50w Syringe) 25 ml Q15M PRN IV DECREASED GLUCOSE; Start 06/14/16 at 00:30 Dextrose (D50w Syringe) 50 ml Q15M PRN IV DECREASED GLUCOSE; Start 06/14/16 at 00:30 Glucagon (Glucagen) 1 mg Q15M PRN IM DECREASED GLUCOSE; Start 06/14/16 at 00:30 Glucose (Glutose) 15 gm Q15M PRN BUCCAL DECREASED GLUCOSE; Start 06/14/16 at 00 :30 Diagnostic Test (Pha) (Accucheck) 1 ea 02 XX Last administered on 07/03/16 03: 10; Admin Dose 1 EA; Start 06/14/16 at 02:00 Amlodipine Besylate (Norvasc) 5 mg BID PO Last administered on 07/03/16 10:05; Admin Dose 5 MG; Start 06/14/16 at 13:30 Clonidine (Catapres) 0.2 mg Q8 PRN PO Systolic >160 Last administered on 02:29; Admin Dose 0.2 MG; Start 06/14/16 at 13:00 Promethazine HCl/ Codeine (Phenergan/ Codeine) 5 ml Q4H PRN PO COUGH Last administered on 06/21/16 18:04; Admin Dose 5 ML; Start 06/15/16 at 00:00 Insulin Glargine (Lantus) 14 unit QHS SC Last administered on 06/23/16 20:31; Admin Dose 14 UNIT; Start 06/15/16 at 21:00; Status Future Hold Pantoprazole (Protonix Tab) 40 mg DAILY@06 PO Last administered on 07/03/16 05: 32; Admin Dose 40 MG; Start 06/16/16 at 06:00 Diphenhydramine HCl (Benadryl) 25 mg HS PRN PO INSOMNIA Last administered on 00:54; Admin Dose 25 MG; Start 06/15/16 at 21:30 Hydralazine HCl (Apresoline) 100 mg Q8 PO Last administered on 07/03/16 05:33; Admin Dose 100 MG; Start 06/19/16 at 13:00 Bisacodyl (Dulcolax) 10 mg DAILY PRN PO CONSTIPATION Last administered on 16:40; Admin Dose 10 MG; Start 06/22/16 at 11:30 Benazepril HCl (Lotensin) 40 mg BID PO Last administered on 07/03/16 10:05; Admin Dose 40 MG; Start 06/23/16 at 21:00 Metoprolol Tartrate (Lopressor) 50 mg BID PO Last administered on 07/03/16 10: 04; Admin Dose 50 MG; Start 06/26/16 at 09:00 Hydralazine HCl (Apresoline) 20 mg Q4H PRN IV for SBP more than 170; Start at 05:00 Ondansetron HCl (Zofran Inj) 4 mg Q6H PRN IV NAUSEA AND/OR VOMITING Last administered on 07/01/16 20:44; Admin Dose 4 MG; Start 06/28/16 at 05:00 Lorazepam (Ativan) 1 mg Q6H PRN IV ANXIETY Last administered on 07/02/16 01:46 ; Admin Dose 1 MG; Start 06/28/16 at 05:00 Clonidine (Catapres) 0.1 mg QID PO Last administered on 07/03/16 10:04; Admin Dose 0.1 MG; Start 06/28/16 at 13:00 Hydromorphone HCl (Dilaudid) 0.5 mg Q4H PRN IV PAIN Last administered on 11:05; Admin Dose 0.5 MG; Start 07/01/16 at 01:30 Hydromorphone HCl (Dilaudid) 1 mg Q3 PRN IV PAIN Last administered on 07/03/16 08:41; Admin Dose 1 MG; Start 07/01/16 at 14:00 PATRICIA RUEDA Jul 03, 2016 12:28
[2016-07-03] MEDS: ONDANSETRON 4 MG INJ IV PRN (14:45)
--- NOTE | 2016-07-03 17:20 | CONS ---
Date/Time of Note Date/Time of Note DATE: 07/03/16 TIME: 17:13 Assessment/Plan Assessment/Plan Chief Complaint/Hosp Course ESRD HTN PNEUMONIA better PLEURAL EFFUSION s/p vats hyperkalemia HX TB GOLD TEST + PLAN PER CARDIO NON COMPLIANCE W HD hd refused hd 3 x wk HD T/THURSDAY PT REFUSED HD ON THURSDAY per pcp fluid res bp meds CONSIDER ID CONSULT Problems: Consultation Date/Type/Reason Admit Date/Time Jun 13, 2016 at 14:48 Type of Consultation: renal Referring Provider: EVA COX MD 24 HR Interval Summary Constitutional: other (C/O NAUSEA TB GOLD TEST +) Exam/Review of Systems Vital Signs Vitals Vital Signs Date Time Temp Pulse Resp B/P Pulse Ox O2 Delivery O2 Flow Rate FiO2 07/03/16 17:03 69 07/03/16 16:36 2.0 07/03/16 15:53 98.6 18 118/59 97 07/03/16 08:00 Nasal Cannula Intake and Output 07/02/16 07/02/16 07/03/16 15:00 23:00 07:00 Intake Total 500 ml 740 ml 80 ml Output Total 2000 ml 400 ml 420 ml Balance -1500 ml 340 ml -340 ml Exam Respiratory: diminished breath sounds Cardiovascular: regular rate and rhythm Gastrointestinal: soft Musculoskeletal: nl extremities to inspection Results Result Diagram: 07/03/16 0545 07/03/16 0545 Results 24 hrs Laboratory Tests Test 07/02/16 18:00 07/02/16 20:29 07/03/16 03:07 07/03/16 05:45 Bedside Glucose 161 198 153 Anion Gap 16 Basophils # 0.0 Basophils % 0.3 Blood Urea Nitrogen 45 #H Calcium Level 8.3 L Carbon Dioxide Level 31 Chloride Level 92 L Creatinine 6.13 #H Eosinophils # 0.1 Eosinophils % 0.5 Glucose Level 146 # Hematocrit 24.4 L Hemoglobin 8.3 L Lymphocytes # 0.8 Lymphocytes % 5.1 L Magnesium Level 2.1 Mean Corpuscular Hemoglobin 33.6 H Mean Corpuscular Hemoglobin Concent 34.0 Mean Corpuscular Volume 98.8 Mean Platelet Volume 10.6 H Monocytes # 1.6 H Monocytes % 10.4 Neutrophils # 12.8 H Neutrophils % 83.1 H Nucleated Red Blood Cells # 0.0 Nucleated Red Blood Cells % 0.0 Phosphorus Level 4.6 Platelet Count 174 Potassium Level 4.5 Red Blood Count 2.47 L Red Cell Distribution Width 12.8 Sodium Level 134 L White Blood Count 15.4 H Test 07/03/16 08:29 07/03/16 12:59 Bedside Glucose 152 173 Medications Medications Current Medications IV Flush (NS 10 ml) 10 ml PRN PRN IV FLUSH LINE; Start 06/13/16 at 19:00 Aspirin (Halfprin) 81 mg DAILY PO Last administered on 07/03/16 10:05; Admin Dose 81 MG; Start 06/14/16 at 09:00 Atorvastatin Calcium (Lipitor) 10 mg QHS PO Last administered on 07/02/16 20:26 ; Admin Dose 10 MG; Start 06/14/16 at 21:00 Cholecalciferol (Vitamin D) 400 units DAILY PO Last administered on 07/03/16 10 :04; Admin Dose 400 UNITS; Start 06/14/16 at 09:00 Clopidogrel Bisulfate (plaVIX) 75 mg DAILY PO Last administered on 06/24/16 08 :36; Admin Dose 75 MG; Start 06/14/16 at 09:00; Status Future Hold Ferrous Sulfate (Ferrous Sulfate (Ec)) 325 mg BID PO Last administered on 10:05; Admin Dose 325 MG; Start 06/14/16 at 09:00 Acetaminophen (Tylenol Tab) 500 mg Q4H PRN PO PAIN AND OR ELEVATED TEMP Last administered on 07/02/16 00:32; Admin Dose 500 MG; Start 06/14/16 at 00:00 Heparin Sodium (Porcine) (Heparin (5000 Units/0.5 ml)) 5,000 unit BID SC Last administered on 07/03/16 10:07; Admin Dose 5,000 UNIT; Start 06/14/16 at 09:00 Miscellaneous Information 1 ea NOTE XX Last administered on 06/18/16 07:57; Admin Dose 1 EA; Start 06/14/16 at 00:30 Glucose (Glutose) 15 gm Q15M PRN PO DECREASED GLUCOSE; Start 06/14/16 at 00:30 Glucose (Glutose) 22.5 gm Q15M PRN PO DECREASED GLUCOSE; Start 06/14/16 at 00: 30 Dextrose (D50w Syringe) 25 ml Q15M PRN IV DECREASED GLUCOSE; Start 06/14/16 at 00:30 Dextrose (D50w Syringe) 50 ml Q15M PRN IV DECREASED GLUCOSE; Start 06/14/16 at 00:30 Glucagon (Glucagen) 1 mg Q15M PRN IM DECREASED GLUCOSE; Start 06/14/16 at 00:30 Glucose (Glutose) 15 gm Q15M PRN BUCCAL DECREASED GLUCOSE; Start 06/14/16 at 00 :30 Diagnostic Test (Pha) (Accucheck) 1 ea 02 XX Last administered on 07/03/16 03: 10; Admin Dose 1 EA; Start 06/14/16 at 02:00 Amlodipine Besylate (Norvasc) 5 mg BID PO Last administered on 07/03/16 10:05; Admin Dose 5 MG; Start 06/14/16 at 13:30 Clonidine (Catapres) 0.2 mg Q8 PRN PO Systolic >160 Last administered on 02:29; Admin Dose 0.2 MG; Start 06/14/16 at 13:00 Promethazine HCl/ Codeine (Phenergan/ Codeine) 5 ml Q4H PRN PO COUGH Last administered on 06/21/16 18:04; Admin Dose 5 ML; Start 06/15/16 at 00:00 Insulin Glargine (Lantus) 14 unit QHS SC Last administered on 06/23/16 20:31; Admin Dose 14 UNIT; Start 06/15/16 at 21:00; Status Future Hold Pantoprazole (Protonix Tab) 40 mg DAILY@06 PO Last administered on 07/03/16 05: 32; Admin Dose 40 MG; Start 06/16/16 at 06:00 Diphenhydramine HCl (Benadryl) 25 mg HS PRN PO INSOMNIA Last administered on 00:54; Admin Dose 25 MG; Start 06/15/16 at 21:30 Hydralazine HCl (Apresoline) 100 mg Q8 PO Last administered on 07/03/16 13:10; Admin Dose 100 MG; Start 06/19/16 at 13:00 Bisacodyl (Dulcolax) 10 mg DAILY PRN PO CONSTIPATION Last administered on 16:40; Admin Dose 10 MG; Start 06/22/16 at 11:30 Benazepril HCl (Lotensin) 40 mg BID PO Last administered on 07/03/16 10:05; Admin Dose 40 MG; Start 06/23/16 at 21:00 Metoprolol Tartrate (Lopressor) 50 mg BID PO Last administered on 07/03/16 10: 04; Admin Dose 50 MG; Start 06/26/16 at 09:00 Hydralazine HCl (Apresoline) 20 mg Q4H PRN IV for SBP more than 170; Start at 05:00 Ondansetron HCl (Zofran Inj) 4 mg Q6H PRN IV NAUSEA AND/OR VOMITING Last administered on 07/03/16 14:45; Admin Dose 4 MG; Start 06/28/16 at 05:00 Lorazepam (Ativan) 1 mg Q6H PRN IV ANXIETY Last administered on 07/02/16 01:46 ; Admin Dose 1 MG; Start 06/28/16 at 05:00 Clonidine (Catapres) 0.1 mg QID PO Last administered on 07/03/16 13:10; Admin Dose 0.1 MG; Start 06/28/16 at 13:00 Hydromorphone HCl (Dilaudid) 0.5 mg Q4H PRN IV PAIN Last administered on 11:05; Admin Dose 0.5 MG; Start 07/01/16 at 01:30 Hydromorphone HCl (Dilaudid) 1 mg Q3 PRN IV PAIN Last administered on 07/03/16 13:54; Admin Dose 1 MG; Start 07/01/16 at 14:00 PAOLA MOODY MD Jul 03, 2016 17:20
--- NOTE | 2016-07-03 19:40 | CONS ---
Date/Time of Note Date/Time of Note DATE: 07/03/16 TIME: 19:38 Assessment/Plan Assessment/Plan Chief Complaint/Hosp Course IMPRESSION: 1. Abnormal electrocardiogram, assess for acute coronary syndrome.-negative troponin x 3 2. History of recent negative stress, May 2015. 3. History of percutaneous transluminal coronary angioplasty and stent placement in 2014 to the left main left anterior descending. No current chest pain. 4. Hypertension, mildly elevated. 5. History of dyslipidemia. 6. Pleural effusion, status post thoracentesis. 7. Possible pneumonia/cough-improved 8. Diabetes mellitus. 9. End-stage renal disease, on hemodialysis. 10. Had WCT-06/27 which was paced beats at approx 100. NO recurrence since RECOMMENDATIONS: -Tele -Continue metoprolol -Continue Benazepril -Continue norvasc/hydralazine -Continue asa/statin -resume plavix when possible -Consider abx's and f/u cx data -Follow volume status with HD for volume removal Follow CT output closely Problems: Consultation Date/Type/Reason Admit Date/Time Jun 13, 2016 at 14:48 Initial Consult Date 06/14/2016 Type of Consultation: Cardiology Reason for Consultation abnl ecg Referring Provider: EVA COX MD Exam/Review of Systems Vital Signs Vitals Vital Signs Date Time Temp Pulse Resp B/P Pulse Ox O2 Delivery O2 Flow Rate FiO2 07/03/16 17:03 69 07/03/16 16:36 2.0 07/03/16 15:53 98.6 18 118/59 97 07/03/16 08:00 Nasal Cannula Intake and Output 07/02/16 07/02/16 07/03/16 15:00 23:00 07:00 Intake Total 500 ml 740 ml 80 ml Output Total 2000 ml 400 ml 420 ml Balance -1500 ml 340 ml -340 ml Exam Review of Systems: CONSTITUTIONAL: No fevers, chills. PULMONARY: No sob CARDIOVASCULAR: No chest pain/palpitations GASTROINTESTINAL: No nausea/vomiting. GENITOURINARY: No hematuria/dysuria. MUSCULOSKELETAL: No myagias/arthalgias. PSYCHIATRIC: The patient denies depression. NEUROLOGIC: No weakness Constitutional: alert, oriented Psych: no complaints Head: normocephalic ENMT: mucosa pink and moist Neck: jvd (9cm wateer), supple Respiratory: diminished breath sounds (at bases R>L) Cardiovascular: regular rate and rhythm Gastrointestinal: non-tender, soft Musculoskeletal: muscle tone (normal) Extremities: edema (none) Neurological: other (No focal deficits) Results Result Diagram: 07/03/16 0545 07/03/16 0545 Results 24 hrs Laboratory Tests Test 07/02/16 20:29 07/03/16 03:07 07/03/16 05:45 07/03/16 08:29 Bedside Glucose 198 153 152 Anion Gap 16 Basophils # 0.0 Basophils % 0.3 Blood Urea Nitrogen 45 #H Calcium Level 8.3 L Carbon Dioxide Level 31 Chloride Level 92 L Creatinine 6.13 #H Eosinophils # 0.1 Eosinophils % 0.5 Glucose Level 146 # Hematocrit 24.4 L Hemoglobin 8.3 L Lymphocytes # 0.8 Lymphocytes % 5.1 L Magnesium Level 2.1 Mean Corpuscular Hemoglobin 33.6 H Mean Corpuscular Hemoglobin Concent 34.0 Mean Corpuscular Volume 98.8 Mean Platelet Volume 10.6 H Monocytes # 1.6 H Monocytes % 10.4 Neutrophils # 12.8 H Neutrophils % 83.1 H Nucleated Red Blood Cells # 0.0 Nucleated Red Blood Cells % 0.0 Phosphorus Level 4.6 Platelet Count 174 Potassium Level 4.5 Red Blood Count 2.47 L Red Cell Distribution Width 12.8 Sodium Level 134 L White Blood Count 15.4 H Test 07/03/16 12:59 07/03/16 17:48 Bedside Glucose 173 169 Medications Medications Current Medications IV Flush (NS 10 ml) 10 ml PRN PRN IV FLUSH LINE; Start 06/13/16 at 19:00 Aspirin (Halfprin) 81 mg DAILY PO Last administered on 07/03/16 10:05; Admin Dose 81 MG; Start 06/14/16 at 09:00 Atorvastatin Calcium (Lipitor) 10 mg QHS PO Last administered on 07/02/16 20:26 ; Admin Dose 10 MG; Start 06/14/16 at 21:00 Cholecalciferol (Vitamin D) 400 units DAILY PO Last administered on 07/03/16 10 :04; Admin Dose 400 UNITS; Start 06/14/16 at 09:00 Clopidogrel Bisulfate (plaVIX) 75 mg DAILY PO Last administered on 06/24/16 08 :36; Admin Dose 75 MG; Start 06/14/16 at 09:00; Status Future Hold Ferrous Sulfate (Ferrous Sulfate (Ec)) 325 mg BID PO Last administered on 10:05; Admin Dose 325 MG; Start 06/14/16 at 09:00 Acetaminophen (Tylenol Tab) 500 mg Q4H PRN PO PAIN AND OR ELEVATED TEMP Last administered on 07/02/16 00:32; Admin Dose 500 MG; Start 06/14/16 at 00:00 Heparin Sodium (Porcine) (Heparin (5000 Units/0.5 ml)) 5,000 unit BID SC Last administered on 07/03/16 10:07; Admin Dose 5,000 UNIT; Start 06/14/16 at 09:00 Miscellaneous Information 1 ea NOTE XX Last administered on 06/18/16 07:57; Admin Dose 1 EA; Start 06/14/16 at 00:30 Glucose (Glutose) 15 gm Q15M PRN PO DECREASED GLUCOSE; Start 06/14/16 at 00:30 Glucose (Glutose) 22.5 gm Q15M PRN PO DECREASED GLUCOSE; Start 06/14/16 at 00: 30 Dextrose (D50w Syringe) 25 ml Q15M PRN IV DECREASED GLUCOSE; Start 06/14/16 at 00:30 Dextrose (D50w Syringe) 50 ml Q15M PRN IV DECREASED GLUCOSE; Start 06/14/16 at 00:30 Glucagon (Glucagen) 1 mg Q15M PRN IM DECREASED GLUCOSE; Start 06/14/16 at 00:30 Glucose (Glutose) 15 gm Q15M PRN BUCCAL DECREASED GLUCOSE; Start 06/14/16 at 00 :30 Diagnostic Test (Pha) (Accucheck) 1 ea 02 XX Last administered on 07/03/16 03: 10; Admin Dose 1 EA; Start 06/14/16 at 02:00 Amlodipine Besylate (Norvasc) 5 mg BID PO Last administered on 07/03/16 10:05; Admin Dose 5 MG; Start 06/14/16 at 13:30 Clonidine (Catapres) 0.2 mg Q8 PRN PO Systolic >160 Last administered on 02:29; Admin Dose 0.2 MG; Start 06/14/16 at 13:00 Promethazine HCl/ Codeine (Phenergan/ Codeine) 5 ml Q4H PRN PO COUGH Last administered on 06/21/16 18:04; Admin Dose 5 ML; Start 06/15/16 at 00:00 Insulin Glargine (Lantus) 14 unit QHS SC Last administered on 06/23/16 20:31; Admin Dose 14 UNIT; Start 06/15/16 at 21:00; Status Future Hold Pantoprazole (Protonix Tab) 40 mg DAILY@06 PO Last administered on 07/03/16 05: 32; Admin Dose 40 MG; Start 06/16/16 at 06:00 Diphenhydramine HCl (Benadryl) 25 mg HS PRN PO INSOMNIA Last administered on 00:54; Admin Dose 25 MG; Start 06/15/16 at 21:30 Hydralazine HCl (Apresoline) 100 mg Q8 PO Last administered on 07/03/16 13:10; Admin Dose 100 MG; Start 06/19/16 at 13:00 Bisacodyl (Dulcolax) 10 mg DAILY PRN PO CONSTIPATION Last administered on 16:40; Admin Dose 10 MG; Start 06/22/16 at 11:30 Benazepril HCl (Lotensin) 40 mg BID PO Last administered on 07/03/16 10:05; Admin Dose 40 MG; Start 06/23/16 at 21:00 Metoprolol Tartrate (Lopressor) 50 mg BID PO Last administered on 07/03/16 10: 04; Admin Dose 50 MG; Start 06/26/16 at 09:00 Hydralazine HCl (Apresoline) 20 mg Q4H PRN IV for SBP more than 170; Start at 05:00 Ondansetron HCl (Zofran Inj) 4 mg Q6H PRN IV NAUSEA AND/OR VOMITING Last administered on 07/03/16 14:45; Admin Dose 4 MG; Start 06/28/16 at 05:00 Lorazepam (Ativan) 1 mg Q6H PRN IV ANXIETY Last administered on 07/02/16 01:46 ; Admin Dose 1 MG; Start 06/28/16 at 05:00 Clonidine (Catapres) 0.1 mg QID PO Last administered on 07/03/16 17:49; Admin Dose 0.1 MG; Start 06/28/16 at 13:00 Hydromorphone HCl (Dilaudid) 0.5 mg Q4H PRN IV PAIN Last administered on 11:05; Admin Dose 0.5 MG; Start 07/01/16 at 01:30 Hydromorphone HCl (Dilaudid) 1 mg Q3 PRN IV PAIN Last administered on 07/03/16 13:54; Admin Dose 1 MG; Start 07/01/16 at 14:00 Cyclobenzaprine HCl (Flexeril) 10 mg TID PO ; Start 07/03/16 at 21:00 SHERITA SCOTT Jul 03, 2016 19:40
[2016-07-03] MEDS: ATORVASTATIN 10 MG TAB PO SCH (20:30)
[2016-07-03] MEDS: CYCLOBENZAPRINE 10 MG TAB PO SCH (21:56)
--- NOTE | 2016-07-03 23:28 | PN ---
Date/Time of Note Date/Time of Note DATE: 07/03/16 TIME: 23:27 Assessment/Plan VTE Prophylaxis VTE Prophylaxis Intervention: other Lines/Catheters IV [facility] Central line still needed: No Urinary Cath still in place: No Assessment/Plan Chief Complaint/Hosp Course IMPRESSION: Bilateral pleural effusions status post thoracentesis with much improvement. SP VATS Decortication CT [address] sxn Problems: Subjective 24 Hr Interval Summary Gastrointestinal: no complaints Genitourinary: no complaints Musculoskeletal: no complaints Skin: no complaints Exam/Review of Systems Vital Signs Vitals Vital Signs Date Time Temp Pulse Resp B/P Pulse Ox O2 Delivery O2 Flow Rate FiO2 07/03/16 20:29 98.2 69 20 125/59 100 Nasal Cannula 3.0 Intake and Output 07/02/16 07/02/16 07/03/16 14:59 22:59 06:59 Intake Total 500 ml 740 ml 80 ml Output Total 2000 ml 400 ml 420 ml Balance -1500 ml 340 ml -340 ml Exam Respiratory: clear to auscultation, normal air movement Cardiovascular: nl pulses, regular rate and rhythm Gastrointestinal: nl liver, spleen, non-tender, soft Results Result Diagram: 07/03/16 0545 07/03/16 0545 Results 24 hrs Laboratory Tests Test 07/03/16 03:07 07/03/16 05:45 07/03/16 08:29 07/03/16 12:59 Bedside Glucose 153 152 173 Anion Gap 16 Basophils # 0.0 Basophils % 0.3 Blood Urea Nitrogen 45 #H Calcium Level 8.3 L Carbon Dioxide Level 31 Chloride Level 92 L Creatinine 6.13 #H Eosinophils # 0.1 Eosinophils % 0.5 Glucose Level 146 # Hematocrit 24.4 L Hemoglobin 8.3 L Lymphocytes # 0.8 Lymphocytes % 5.1 L Magnesium Level 2.1 Mean Corpuscular Hemoglobin 33.6 H Mean Corpuscular Hemoglobin Concent 34.0 Mean Corpuscular Volume 98.8 Mean Platelet Volume 10.6 H Monocytes # 1.6 H Monocytes % 10.4 Neutrophils # 12.8 H Neutrophils % 83.1 H Nucleated Red Blood Cells # 0.0 Nucleated Red Blood Cells % 0.0 Phosphorus Level 4.6 Platelet Count 174 Potassium Level 4.5 Red Blood Count 2.47 L Red Cell Distribution Width 12.8 Sodium Level 134 L White Blood Count 15.4 H Test 07/03/16 17:48 07/03/16 20:56 Bedside Glucose 169 212 Medications Medications Current Medications IV Flush (NS 10 ml) 10 ml PRN PRN IV FLUSH LINE; Start 06/13/16 at 19:00 Aspirin (Halfprin) 81 mg DAILY PO Last administered on 07/03/16 10:05; Admin Dose 81 MG; Start 06/14/16 at 09:00 Atorvastatin Calcium (Lipitor) 10 mg QHS PO Last administered on 07/03/16 20:30 ; Admin Dose 10 MG; Start 06/14/16 at 21:00 Cholecalciferol (Vitamin D) 400 units DAILY PO Last administered on 07/03/16 10 :04; Admin Dose 400 UNITS; Start 06/14/16 at 09:00 Clopidogrel Bisulfate (plaVIX) 75 mg DAILY PO Last administered on 06/24/16 08 :36; Admin Dose 75 MG; Start 06/14/16 at 09:00; Status Future Hold Ferrous Sulfate (Ferrous Sulfate (Ec)) 325 mg BID PO Last administered on 20:30; Admin Dose 325 MG; Start 06/14/16 at 09:00 Acetaminophen (Tylenol Tab) 500 mg Q4H PRN PO PAIN AND OR ELEVATED TEMP Last administered on 07/02/16 00:32; Admin Dose 500 MG; Start 06/14/16 at 00:00 Heparin Sodium (Porcine) (Heparin (5000 Units/0.5 ml)) 5,000 unit BID SC Last administered on 07/03/16 20:38; Admin Dose 5,000 UNIT; Start 06/14/16 at 09:00 Miscellaneous Information 1 ea NOTE XX Last administered on 06/18/16 07:57; Admin Dose 1 EA; Start 06/14/16 at 00:30 Glucose (Glutose) 15 gm Q15M PRN PO DECREASED GLUCOSE; Start 06/14/16 at 00:30 Glucose (Glutose) 22.5 gm Q15M PRN PO DECREASED GLUCOSE; Start 06/14/16 at 00: 30 Dextrose (D50w Syringe) 25 ml Q15M PRN IV DECREASED GLUCOSE; Start 06/14/16 at 00:30 Dextrose (D50w Syringe) 50 ml Q15M PRN IV DECREASED GLUCOSE; Start 06/14/16 at 00:30 Glucagon (Glucagen) 1 mg Q15M PRN IM DECREASED GLUCOSE; Start 06/14/16 at 00:30 Glucose (Glutose) 15 gm Q15M PRN BUCCAL DECREASED GLUCOSE; Start 06/14/16 at 00 :30 Diagnostic Test (Pha) (Accucheck) 1 ea 02 XX Last administered on 07/03/16 03: 10; Admin Dose 1 EA; Start 06/14/16 at 02:00 Amlodipine Besylate (Norvasc) 5 mg BID PO Last administered on 07/03/16 20:31; Admin Dose 5 MG; Start 06/14/16 at 13:30 Clonidine (Catapres) 0.2 mg Q8 PRN PO Systolic >160 Last administered on 02:29; Admin Dose 0.2 MG; Start 06/14/16 at 13:00 Promethazine HCl/ Codeine (Phenergan/ Codeine) 5 ml Q4H PRN PO COUGH Last administered on 06/21/16 18:04; Admin Dose 5 ML; Start 06/15/16 at 00:00 Insulin Glargine (Lantus) 14 unit QHS SC Last administered on 06/23/16 20:31; Admin Dose 14 UNIT; Start 06/15/16 at 21:00; Status Future Hold Pantoprazole (Protonix Tab) 40 mg DAILY@06 PO Last administered on 07/03/16 05: 32; Admin Dose 40 MG; Start 06/16/16 at 06:00 Diphenhydramine HCl (Benadryl) 25 mg HS PRN PO INSOMNIA Last administered on 00:54; Admin Dose 25 MG; Start 06/15/16 at 21:30 Hydralazine HCl (Apresoline) 100 mg Q8 PO Last administered on 07/03/16 21:59; Admin Dose 100 MG; Start 06/19/16 at 13:00 Bisacodyl (Dulcolax) 10 mg DAILY PRN PO CONSTIPATION Last administered on 16:40; Admin Dose 10 MG; Start 06/22/16 at 11:30 Benazepril HCl (Lotensin) 40 mg BID PO Last administered on 07/03/16 20:31; Admin Dose 40 MG; Start 06/23/16 at 21:00 Metoprolol Tartrate (Lopressor) 50 mg BID PO Last administered on 07/03/16 20: 31; Admin Dose 50 MG; Start 06/26/16 at 09:00 Hydralazine HCl (Apresoline) 20 mg Q4H PRN IV for SBP more than 170; Start at 05:00 Ondansetron HCl (Zofran Inj) 4 mg Q6H PRN IV NAUSEA AND/OR VOMITING Last administered on 07/03/16 14:45; Admin Dose 4 MG; Start 06/28/16 at 05:00 Lorazepam (Ativan) 1 mg Q6H PRN IV ANXIETY Last administered on 07/02/16 01:46 ; Admin Dose 1 MG; Start 06/28/16 at 05:00 Clonidine (Catapres) 0.1 mg QID PO Last administered on 07/03/16 20:30; Admin Dose 0.1 MG; Start 06/28/16 at 13:00 Hydromorphone HCl (Dilaudid) 0.5 mg Q4H PRN IV PAIN Last administered on 11:05; Admin Dose 0.5 MG; Start 07/01/16 at 01:30 Hydromorphone HCl (Dilaudid) 1 mg Q3 PRN IV PAIN Last administered on 07/03/16 20:31; Admin Dose 1 MG; Start 07/01/16 at 14:00 Cyclobenzaprine HCl (Flexeril) 10 mg TID PO Last administered on 07/03/16 21:56 ; Admin Dose 10 MG; Start 07/03/16 at 21:00 LILIA FELIZ MD Jul 03, 2016 23:28
[2016-07-04] VITALS (10 sets, daily range): BP systolic 119–129; BP diastolic 48–60; PULSE 69; RESP 16–20
[2016-07-04] MEDS: ACCU-CHEK XX SCH ×5 (02:42→20:45)
[2016-07-04] MEDS: PANTOPRAZOLE (EC) 40 MG TAB PO SCH (05:29)
[2016-07-04 07:01] LABS: ADD SCAN DIFF NO
[2016-07-04 07:11] LABS: BASOPHILS % 0.4 % (0.0-2.0); EOSINOPHILS # 0.1 10^3/ul (0.0-0.5); EOSINOPHILS % 1.4 % (0.0-7.0); HEMATOCRIT 23.2 % (42.0-52.0); HEMOGLOBIN 7.7 g/dl (14.0-18.0); LYMPHOCYTES # 0.9 10^3/ul (0.8-2.9); LYMPHOCYTES % 8.4 % (15.0-51.0); MEAN CORPUSCULAR HEMOGLOBIN 32.6 pg (29.0-33.0); MEAN CORPUSCULAR HGB CONC 33.2 g/dl (32.0-37.0); MEAN CORPUSCULAR VOLUME 98.3 fl (82.0-101.0); MEAN PLATELET VOLUME 10.1 fl (7.4-10.4); MONOCYTES % 9.9 % (0.0-11.0); NEUTROPHIL # 8.2 10^3/ul (1.6-7.5); NEUTROPHILS % 79.4 % (39.0-77.0); PLATELET COUNT 211 10^3/UL (140-415); RED BLOOD COUNT 2.36 10^6/ul (4.70-6.10); RED CELL DISTRIBUTION WIDTH 13.1 % (11.5-14.5); WHITE BLOOD COUNT 10.3 10^3/ul (4.8-10.8)
[2016-07-04 07:28] LABS: POTASSIUM 4.7 mmol/L (3.5-5.1)
[2016-07-04 07:31] LABS: CREATININE 7.8 mg/dl (0.61-1.24)
[2016-07-04 07:32] LABS: CALCIUM 8.5 mg/dl (8.4-10.2)
[2016-07-04] MEDS: SEVELAMER CARBONATE 0.8 GM PKT PO SCH ×3 (08:48→17:19)
[2016-07-04] MEDS: CALCIUM ACETATE 667 MG CAP PO SCH ×3 (08:48→17:19)
[2016-07-04] MEDS: FERROUS SULFATE (EC) 325 MG TAB PO SCH ×2 (08:50→20:37)
[2016-07-04] MEDS: ASPIRIN (EC) 81 MG TAB PO SCH (08:51)
[2016-07-04] MEDS: CYCLOBENZAPRINE 10 MG TAB PO SCH ×3 (08:51→20:36)
[2016-07-04] MEDS: CHOLECALCIFEROL 400 UNITS TAB PO SCH (08:51)
[2016-07-04] MEDS: BENAZEPRIL 40 MG TAB PO SCH ×2 (08:52→20:36)
[2016-07-04] MEDS: METOPROLOL 25 MG TAB PO SCH ×2 (08:52→20:36)
[2016-07-04] MEDS: AMLODIPINE 5 MG TAB PO SCH ×2 (08:52→20:37)
[2016-07-04] MEDS: INSULIN ASPART [NOVOLOG] 3 ML PEN SC SCH ×4 (08:54→20:45)
[2016-07-04] MEDS: HEPARIN 5,000 UNIT/0.5 ML SYG SC SCH ×2 (08:55→20:40)
[2016-07-04] MEDS: LEVALBUTEROL (HFA) 15 GM INHALER INH SCH ×3 (08:59→16:10)
--- NOTE | 2016-07-04 10:19 | PN ---
Date/Time of Note Date/Time of Note DATE: 07/04/16 TIME: 10:18 Assessment/Plan Lines/Catheters IV Catheter Type (from Nrsg): Jonas in Place (from Nrsg): No Assessment/Plan Chief Complaint/Hosp Course IMPRESSION: Bilateral pleural effusions status post thoracentesis with much improvement. SP VATS Decortication CT [address] sxn Problems: Subjective 24 Hr Interval Summary Constitutional: improved Pain Control: mild Exam/Review of Systems Vital Signs Vitals Vital Signs Date Time Temp Pulse Resp B/P Pulse Ox O2 Delivery O2 Flow Rate FiO2 07/04/16 08:28 98.6 70 16 119/48 99 07/04/16 05:00 Nasal Cannula 2.0 Intake and Output 07/03/16 07/03/16 07/04/16 15:00 23:00 07:00 Intake Total 640 ml 240 ml Output Total 650 ml 450 ml Balance -10 ml -210 ml Exam Neck: non-tender, supple Respiratory: clear to auscultation, normal air movement Cardiovascular: nl pulses, regular rate and rhythm Results Result Diagram: 07/04/16 0640 07/04/16 0640 MALELILIA VALLES MD Jul 04, 2016 10:19
--- NOTE | 2016-07-04 10:59 | CONS ---
Date/Time of Note Date/Time of Note DATE: 07/04/16 TIME: 10:22 Assessment/Plan Assessment/Plan Chief Complaint/Hosp Course assessment/impression - h/o recurrent pleural effusion requiring thoracentesis approximately once a year, last performed in 04/2016 - s/p R VATS, total pulmonary decortication, R pleurodesis on 06/30/2016. Biopsy was negative for fungal stain and AFB stain (micro lab and pathology department), as well as malignancy. 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 Per Pt, his past PPD was done in 2013, and was negative. - high risk for TB: history (originally from [facility], spends one month of each year in [facility], last in 09/2015), medical history (DM, ESRD) - based on the above history and findings, a risk of tuberculosis is high - DM - ESRD on HD - CAD s/p CABG in 2010 and cardiac stent in 2013 recommendations - place Pt on negative pressure room and start collecting sputum for AFB smear and culture x3 - I requested mycobacterium tuberculosis DNR probe (PCR) to the 1st sputum sample - I recommend sending more pleural fluid for mycobacterium tuberculosis DNR probe (PCR) - HIV screen - Pt is at a high risk for TB, and may benefit from empiric anti-TB treatment even if the biopsy was negative for AFB. But first, sputum for AFB smear and culture x3 must be done. I will inform the infection control management d/w Pt, his nurse, charge nurse, Dr. Dubon Problems: Consultation Date/Type/Reason Admit Date/Time Jun 13, 2016 at 14:48 Date of Consultation: Jul 04, 2016 Type of Consultation: ID Reason for Consultation positive Q TB gold Referring Provider: EVA PRICE MD Hx of Present Illness This is a 60 yo male from [facility], DM, ESRD on HD, CAD s/p CABG in 2010 and cardiac stent in 2013. Pt has had recurrent pleural effusion requiring thoracentesis approximately once a year, last performed in 04/2016. Pt was readmitted on 06/13/2016 due to recurrent pleural effusion and volume overload. On 06/30/2016, Pt underwent R VATS, total pulmonary decortication, R pleurodesis. Biopsy was negative for fungal stain and AFB stain (micro lab and pathology department), as well as malignancy. It showed granulomatous inflammation with focal necrosis and extensive hyalinization. Cocci serology was negative while Q TB gold was positive. 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 He came to [facility] in 1991 and has lived in [facility] since. He spends one month of each year in [facility], last in 09/2015. He has no know exposure to Pts with TB. No h/o homelessness or imprisonment. He was getting PPD every year since he was started on dialysis, last performed in 2013. He said that the result was negative. Dr. Price requested ID consultation on this Pt. Constitutional: no complaints, other (C/O NAUSEA TB GOLD TEST +) Eyes: no complaints ENT: no complaints Respiratory: other (no hemoptysis), pain, pleuritic pain, No cough, No sputum Cardiovascular: chest pain Gastrointestinal: no complaints Genitourinary: other (HD) Musculoskeletal: no complaints Skin: no complaints Neurologic: no complaints Endocrine: no complaints Lymphatic: no complaints Psychological: no complaints Immunologic: no complaints Past Medical History Medical History: congestive heart failure, coronary artery disease, diabetes, hypertension, renal disease Past Surgical History Past Surgical Hx: no surgical history, angioplasty Social History Alcohol Use: none Smoking Status: Never smoker Drug Use: none Other Social History 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 He came to [facility] in 1991 and has lived in [facility] since. He spends one month of each year in [facility], last in 09/2015. He has no know exposure to Pts with TB. No h/o homelessness or imprisonment. He was getting PPD every year since he was started on dialysis, last performed in 2013. He said that the result was negative. Exam/Review of Systems Vital Signs Vitals Vital Signs Date Time Temp Pulse Resp B/P Pulse Ox O2 Delivery O2 Flow Rate FiO2 07/04/16 08:28 98.6 70 16 119/48 99 07/04/16 05:00 Nasal Cannula 2.0 Intake and Output 07/03/16 07/03/16 07/04/16 15:00 23:00 07:00 Intake Total 640 ml 240 ml Output Total 650 ml 450 ml Balance -10 ml -210 ml Exam Constitutional: alert, frail, oriented Psych: nl mood/affect, no complaints Head: atraumatic, normocephalic Eyes: nl conjunctiva, nl lids ENMT: nl external ears & nose, nl nasal mucosa & septum Neck: supple Respiratory: diminished breath sounds, other (chest tube on R side) Cardiovascular: nl pulses, regular rate and rhythm Gastrointestinal: non-tender, soft Musculoskeletal: nl extremities to inspection Extremities: normal pulses Neurological: PROGRAM MANAGER II-XII intact, nl mental status Results Result Diagram: 07/04/16 0640 07/04/16 0640 Results 24 hrs Laboratory Tests Test 07/03/16 12:59 07/03/16 17:48 07/03/16 20:56 07/04/16 02:40 Bedside Glucose 173 169 212 174 Test 07/04/16 06:40 07/04/16 08:16 Anion Gap 15 Basophils # 0.0 Basophils % 0.4 Blood Urea Nitrogen 60 H Calcium Level 8.5 Carbon Dioxide Level 31 Chloride Level 91 L Creatinine 7.80 H Eosinophils # 0.1 Eosinophils % 1.4 Glucose Level 153 Hematocrit 23.2 L Hemoglobin 7.7 L Lymphocytes # 0.9 Lymphocytes % 8.4 L Mean Corpuscular Hemoglobin 32.6 Mean Corpuscular Hemoglobin Concent 33.2 Mean Corpuscular Volume 98.3 Mean Platelet Volume 10.1 Monocytes # 1.0 H Monocytes % 9.9 Neutrophils # 8.2 H Neutrophils % 79.4 H Nucleated Red Blood Cells # 0.0 Nucleated Red Blood Cells % 0.0 Platelet Count 211 # Potassium Level 4.7 Red Blood Count 2.36 L Red Cell Distribution Width 13.1 Sodium Level 132 L White Blood Count 10.3 # Bedside Glucose 147 Medications Medications Current Medications IV Flush (NS 10 ml) 10 ml PRN PRN IV FLUSH LINE; Start 06/13/16 at 19:00 Aspirin (Halfprin) 81 mg DAILY PO Last administered on 07/04/16 08:51; Admin Dose 81 MG; Start 06/14/16 at 09:00 Atorvastatin Calcium (Lipitor) 10 mg QHS PO Last administered on 07/03/16 20:30 ; Admin Dose 10 MG; Start 06/14/16 at 21:00 Cholecalciferol (Vitamin D) 400 units DAILY PO Last administered on 07/04/16 08 :51; Admin Dose 400 UNITS; Start 06/14/16 at 09:00 Clopidogrel Bisulfate (plaVIX) 75 mg DAILY PO Last administered on 06/24/16 08 :36; Admin Dose 75 MG; Start 06/14/16 at 09:00; Status Future Hold Ferrous Sulfate (Ferrous Sulfate (Ec)) 325 mg BID PO Last administered on 08:50; Admin Dose 325 MG; Start 06/14/16 at 09:00 Acetaminophen (Tylenol Tab) 500 mg Q4H PRN PO PAIN AND OR ELEVATED TEMP Last administered on 07/02/16 00:32; Admin Dose 500 MG; Start 06/14/16 at 00:00 Heparin Sodium (Porcine) (Heparin (5000 Units/0.5 ml)) 5,000 unit BID SC Last administered on 07/04/16 08:55; Admin Dose 5,000 UNIT; Start 06/14/16 at 09:00 Miscellaneous Information 1 ea NOTE XX Last administered on 06/18/16 07:57; Admin Dose 1 EA; Start 06/14/16 at 00:30 Glucose (Glutose) 15 gm Q15M PRN PO DECREASED GLUCOSE; Start 06/14/16 at 00:30 Glucose (Glutose) 22.5 gm Q15M PRN PO DECREASED GLUCOSE; Start 06/14/16 at 00: 30 Dextrose (D50w Syringe) 25 ml Q15M PRN IV DECREASED GLUCOSE; Start 06/14/16 at 00:30 Dextrose (D50w Syringe) 50 ml Q15M PRN IV DECREASED GLUCOSE; Start 06/14/16 at 00:30 Glucagon (Glucagen) 1 mg Q15M PRN IM DECREASED GLUCOSE; Start 06/14/16 at 00:30 Glucose (Glutose) 15 gm Q15M PRN BUCCAL DECREASED GLUCOSE; Start 06/14/16 at 00 :30 Diagnostic Test (Pha) (Accucheck) 1 ea 02 XX Last administered on 07/04/16 02: 42; Admin Dose 1 EA; Start 06/14/16 at 02:00 Amlodipine Besylate (Norvasc) 5 mg BID PO Last administered on 07/04/16 08:52; Admin Dose 5 MG; Start 06/14/16 at 13:30 Clonidine (Catapres) 0.2 mg Q8 PRN PO Systolic >160 Last administered on 02:29; Admin Dose 0.2 MG; Start 06/14/16 at 13:00 Promethazine HCl/ Codeine (Phenergan/ Codeine) 5 ml Q4H PRN PO COUGH Last administered on 06/21/16 18:04; Admin Dose 5 ML; Start 06/15/16 at 00:00 Insulin Glargine (Lantus) 14 unit QHS SC Last administered on 06/23/16 20:31; Admin Dose 14 UNIT; Start 06/15/16 at 21:00; Status Future Hold Pantoprazole (Protonix Tab) 40 mg DAILY@06 PO Last administered on 07/04/16 05: 29; Admin Dose 40 MG; Start 06/16/16 at 06:00 Diphenhydramine HCl (Benadryl) 25 mg HS PRN PO INSOMNIA Last administered on 00:54; Admin Dose 25 MG; Start 06/15/16 at 21:30 Hydralazine HCl (Apresoline) 100 mg Q8 PO Last administered on 07/04/16 05:29; Admin Dose 100 MG; Start 06/19/16 at 13:00 Bisacodyl (Dulcolax) 10 mg DAILY PRN PO CONSTIPATION Last administered on 16:40; Admin Dose 10 MG; Start 06/22/16 at 11:30 Benazepril HCl (Lotensin) 40 mg BID PO Last administered on 07/04/16 08:52; Admin Dose 40 MG; Start 06/23/16 at 21:00 Metoprolol Tartrate (Lopressor) 50 mg BID PO Last administered on 07/04/16 08: 52; Admin Dose 50 MG; Start 06/26/16 at 09:00 Hydralazine HCl (Apresoline) 20 mg Q4H PRN IV for SBP more than 170; Start at 05:00 Ondansetron HCl (Zofran Inj) 4 mg Q6H PRN IV NAUSEA AND/OR VOMITING Last administered on 07/03/16 14:45; Admin Dose 4 MG; Start 06/28/16 at 05:00 Lorazepam (Ativan) 1 mg Q6H PRN IV ANXIETY Last administered on 07/02/16 01:46 ; Admin Dose 1 MG; Start 06/28/16 at 05:00 Clonidine (Catapres) 0.1 mg QID PO Last administered on 07/04/16 08:51; Admin Dose 0.1 MG; Start 06/28/16 at 13:00 Hydromorphone HCl (Dilaudid) 0.5 mg Q4H PRN IV PAIN Last administered on 11:05; Admin Dose 0.5 MG; Start 07/01/16 at 01:30 Hydromorphone HCl (Dilaudid) 1 mg Q3 PRN IV PAIN Last administered on 07/03/16 20:31; Admin Dose 1 MG; Start 07/01/16 at 14:00 Cyclobenzaprine HCl (Flexeril) 10 mg TID PO Last administered on 07/04/16 08:51 ; Admin Dose 10 MG; Start 07/03/16 at 21:00 YUMIKO NICHOLSON M.D. Jul 04, 2016 10:32
--- NOTE | 2016-07-04 11:22 | PN ---
DATE: 07/04/2016 SUBJECTIVE: Patient Francisco remains stable this morning. No new events. PHYSICAL EXAMINATION: VITAL SIGNS: Temperature 98, pulse 70, blood pressure 120/48, O2 saturation 96% on 2 L nasal cannul a. NECK: Supple. No JVD or lymphadenopathy. CARDIAC: S1, S2, no added sounds or murmurs. CHEST: Diminished air entry bilaterally. ABDOMEN: Soft, nontender. No guarding or rebound. EXTREMITIES: No cyanosis, clubbing, edema. NEUROLOGIC: Generalized weakness. LABORATORY DATA: White count 10.5, hemoglobin 7.7, platelets 211. BUN 50, creatinine 7.8. IMPRESSION AND PLAN: 1. End-stage renal failure on hemodialysis. Continue as tolerated. 2. Status post decortication of loculated effusion. Continue thoracic surgery recommendations. 3. 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 Patient to have sputum x3 and likely initiation of full TB treatment. Case was discussed with infectious disease sol johansen. Dictated By: MATILDE SHEPHERD/MANJIT Conf#: [id number] DID#: [id number]
--- NOTE | 2016-07-04 17:25 | CONS ---
Date/Time of Note Date/Time of Note DATE: 07/04/16 TIME: 17:24 Assessment/Plan Assessment/Plan Chief Complaint/Hosp Course ESRD HTN PNEUMONIA better PLEURAL EFFUSION s/p vats hyperkalemia HX TB GOLD TEST + PLAN PER CARDIO NON COMPLIANCE W HD hd refused hd 3 x wk HD T/THURSDAY PT REFUSED HD ON THURSDAY per pcp fluid res bp meds Problems: Consultation Date/Type/Reason Admit Date/Time Jun 13, 2016 at 14:48 Type of Consultation: RENAL Referring Provider: EVA COX MD 24 HR Interval Summary Constitutional: other (SOB+), requiring O2 Exam/Review of Systems Vital Signs Vitals Vital Signs Date Time Temp Pulse Resp B/P Pulse Ox O2 Delivery O2 Flow Rate FiO2 07/04/16 16:22 98.5 70 18 123/60 98 07/04/16 13:44 2.0 07/04/16 05:00 Nasal Cannula Intake and Output 07/03/16 07/03/16 07/04/16 15:00 23:00 07:00 Intake Total 640 ml 240 ml Output Total 650 ml 450 ml Balance -10 ml -210 ml Exam Respiratory: diminished breath sounds Cardiovascular: regular rate and rhythm Gastrointestinal: soft Musculoskeletal: nl extremities to inspection Extremities: normal pulses Results Result Diagram: 07/04/16 0640 07/04/16 0640 Results 24 hrs Laboratory Tests Test 07/03/16 17:48 07/03/16 20:56 07/04/16 02:40 07/04/16 06:40 Bedside Glucose 169 212 174 Anion Gap 15 Basophils # 0.0 Basophils % 0.4 Blood Urea Nitrogen 60 H Calcium Level 8.5 Carbon Dioxide Level 31 Chloride Level 91 L Creatinine 7.80 H Eosinophils # 0.1 Eosinophils % 1.4 Glucose Level 153 Hematocrit 23.2 L Hemoglobin 7.7 L Lymphocytes # 0.9 Lymphocytes % 8.4 L Mean Corpuscular Hemoglobin 32.6 Mean Corpuscular Hemoglobin Concent 33.2 Mean Corpuscular Volume 98.3 Mean Platelet Volume 10.1 Monocytes # 1.0 H Monocytes % 9.9 Neutrophils # 8.2 H Neutrophils % 79.4 H Nucleated Red Blood Cells # 0.0 Nucleated Red Blood Cells % 0.0 Platelet Count 211 # Potassium Level 4.7 Red Blood Count 2.36 L Red Cell Distribution Width 13.1 Sodium Level 132 L White Blood Count 10.3 # Test 07/04/16 08:16 07/04/16 12:24 Bedside Glucose 147 314 H Medications Medications Current Medications IV Flush (NS 10 ml) 10 ml PRN PRN IV FLUSH LINE; Start 06/13/16 at 19:00 Aspirin (Halfprin) 81 mg DAILY PO Last administered on 07/04/16 08:51; Admin Dose 81 MG; Start 06/14/16 at 09:00 Atorvastatin Calcium (Lipitor) 10 mg QHS PO Last administered on 07/03/16 20:30 ; Admin Dose 10 MG; Start 06/14/16 at 21:00 Cholecalciferol (Vitamin D) 400 units DAILY PO Last administered on 07/04/16 08 :51; Admin Dose 400 UNITS; Start 06/14/16 at 09:00 Clopidogrel Bisulfate (plaVIX) 75 mg DAILY PO Last administered on 06/24/16 08 :36; Admin Dose 75 MG; Start 06/14/16 at 09:00; Status Future Hold Ferrous Sulfate (Ferrous Sulfate (Ec)) 325 mg BID PO Last administered on 08:50; Admin Dose 325 MG; Start 06/14/16 at 09:00 Acetaminophen (Tylenol Tab) 500 mg Q4H PRN PO PAIN AND OR ELEVATED TEMP Last administered on 07/02/16 00:32; Admin Dose 500 MG; Start 06/14/16 at 00:00 Heparin Sodium (Porcine) (Heparin (5000 Units/0.5 ml)) 5,000 unit BID SC Last administered on 07/04/16 08:55; Admin Dose 5,000 UNIT; Start 06/14/16 at 09:00 Miscellaneous Information 1 ea NOTE XX Last administered on 06/18/16 07:57; Admin Dose 1 EA; Start 06/14/16 at 00:30 Glucose (Glutose) 15 gm Q15M PRN PO DECREASED GLUCOSE; Start 06/14/16 at 00:30 Glucose (Glutose) 22.5 gm Q15M PRN PO DECREASED GLUCOSE; Start 06/14/16 at 00: 30 Dextrose (D50w Syringe) 25 ml Q15M PRN IV DECREASED GLUCOSE; Start 06/14/16 at 00:30 Dextrose (D50w Syringe) 50 ml Q15M PRN IV DECREASED GLUCOSE; Start 06/14/16 at 00:30 Glucagon (Glucagen) 1 mg Q15M PRN IM DECREASED GLUCOSE; Start 06/14/16 at 00:30 Glucose (Glutose) 15 gm Q15M PRN BUCCAL DECREASED GLUCOSE; Start 06/14/16 at 00 :30 Diagnostic Test (Pha) (Accucheck) 1 ea 02 XX Last administered on 07/04/16 02: 42; Admin Dose 1 EA; Start 06/14/16 at 02:00 Amlodipine Besylate (Norvasc) 5 mg BID PO Last administered on 07/04/16 08:52; Admin Dose 5 MG; Start 06/14/16 at 13:30 Clonidine (Catapres) 0.2 mg Q8 PRN PO Systolic >160 Last administered on 02:29; Admin Dose 0.2 MG; Start 06/14/16 at 13:00 Promethazine HCl/ Codeine (Phenergan/ Codeine) 5 ml Q4H PRN PO COUGH Last administered on 06/21/16 18:04; Admin Dose 5 ML; Start 06/15/16 at 00:00 Insulin Glargine (Lantus) 14 unit QHS SC Last administered on 06/23/16 20:31; Admin Dose 14 UNIT; Start 06/15/16 at 21:00; Status Future Hold Pantoprazole (Protonix Tab) 40 mg DAILY@06 PO Last administered on 07/04/16 05: 29; Admin Dose 40 MG; Start 06/16/16 at 06:00 Diphenhydramine HCl (Benadryl) 25 mg HS PRN PO INSOMNIA Last administered on 00:54; Admin Dose 25 MG; Start 06/15/16 at 21:30 Hydralazine HCl (Apresoline) 100 mg Q8 PO Last administered on 07/04/16 16:12; Admin Dose 100 MG; Start 06/19/16 at 13:00 Bisacodyl (Dulcolax) 10 mg DAILY PRN PO CONSTIPATION Last administered on 16:40; Admin Dose 10 MG; Start 06/22/16 at 11:30 Benazepril HCl (Lotensin) 40 mg BID PO Last administered on 07/04/16 08:52; Admin Dose 40 MG; Start 06/23/16 at 21:00 Metoprolol Tartrate (Lopressor) 50 mg BID PO Last administered on 07/04/16 08: 52; Admin Dose 50 MG; Start 06/26/16 at 09:00 Hydralazine HCl (Apresoline) 20 mg Q4H PRN IV for SBP more than 170; Start at 05:00 Ondansetron HCl (Zofran Inj) 4 mg Q6H PRN IV NAUSEA AND/OR VOMITING Last administered on 07/03/16 14:45; Admin Dose 4 MG; Start 06/28/16 at 05:00 Lorazepam (Ativan) 1 mg Q6H PRN IV ANXIETY Last administered on 07/02/16 01:46 ; Admin Dose 1 MG; Start 06/28/16 at 05:00 Clonidine (Catapres) 0.1 mg QID PO Last administered on 07/04/16 16:14; Admin Dose 0.1 MG; Start 06/28/16 at 13:00 Hydromorphone HCl (Dilaudid) 0.5 mg Q4H PRN IV PAIN Last administered on 11:05; Admin Dose 0.5 MG; Start 07/01/16 at 01:30 Hydromorphone HCl (Dilaudid) 1 mg Q3 PRN IV PAIN Last administered on 07/03/16 20:31; Admin Dose 1 MG; Start 07/01/16 at 14:00 Cyclobenzaprine HCl (Flexeril) 10 mg TID PO Last administered on 07/04/16 16:10 ; Admin Dose 10 MG; Start 07/03/16 at 21:00 PAOLA MOODY MD Jul 04, 2016 17:25
--- NOTE | 2016-07-04 17:44 | PN ---
Date/Time of Note Date/Time of Note DATE: 07/04/16 TIME: 17:41 Assessment/Plan VTE Prophylaxis VTE Prophylaxis Intervention: SCD's Lines/Catheters IV Catheter Type (from [facility]): PICC Line Central line still needed: Yes Urinary Cath still in place: Yes Reason Cath still needed: urinary retention Assessment/Plan Chief Complaint/Hosp Course Assessment and plan - Recurrent pleural effusions. Dr. Martinez is following in thoracic surgery consultation. S/p VATS 06/30. Follow-up on intraoperative cultures. Dr. Carl is following in infectious disease consultation. - Right pleural effusion, status post thoracentesis. Dr. Dale is following in pulmonology consultation. - End-stage renal disease, continue hemodialysis. Dr. Saunders is following in nephrology consultation. - Diabetes mellitus type 2, continue Lantus and NovoLog - Hypertension. Dr. De Santiago is following and cardiology consultation. - Coronary artery disease, status post coronary artery bypass graft. - Permanent pacemaker. No acute issues. - Dyslipidemia. Continue Lipitor. Continue heparin for deep venous thrombosis prophylaxis and Protonix for peptic ulcer disease prophylaxis. Further recommendations based on clinical course. Plan of care discussed with Dr. Price. Problems: Subjective 24 Hr Interval Summary Free Text/Dictation Patient is comfortable on room air, right chest tube with serosanguineous drainage, pain is well controlled, patient complains of placed on airborne isolation to rule out TB. Exam/Review of Systems Vital Signs Vitals Vital Signs Date Time Temp Pulse Resp B/P Pulse Ox O2 Delivery O2 Flow Rate FiO2 07/04/16 16:22 98.5 70 18 123/60 98 07/04/16 13:44 2.0 07/04/16 05:00 Nasal Cannula Intake and Output 07/03/16 07/03/16 07/04/16 15:00 23:00 07:00 Intake Total 640 ml 240 ml Output Total 650 ml 450 ml Balance -10 ml -210 ml Exam Constitutional: alert Psych: no complaints Head: atraumatic, normocephalic Eyes: nl conjunctiva ENMT: nl external ears & nose Neck: non-tender, supple Respiratory: clear to auscultation, R chest tube Cardiovascular: nl pulses Gastrointestinal: non-tender, soft Musculoskeletal: nl extremities to inspection Extremities: normal pulses Neurological: [employer] II-XII intact Skin: nl turgor Results Result Diagram: 3/3/17 0640 07/04/16 0640 Results 24 hrs Laboratory Tests Test 07/03/16 17:48 07/03/16 20:56 07/04/16 02:40 07/04/16 06:40 Bedside Glucose 169 212 174 Anion Gap 15 Basophils # 0.0 Basophils % 0.4 Blood Urea Nitrogen 60 H Calcium Level 8.5 Carbon Dioxide Level 31 Chloride Level 91 L Creatinine 7.80 H Eosinophils # 0.1 Eosinophils % 1.4 Glucose Level 153 Hematocrit 23.2 L Hemoglobin 7.7 L Lymphocytes # 0.9 Lymphocytes % 8.4 L Mean Corpuscular Hemoglobin 32.6 Mean Corpuscular Hemoglobin Concent 33.2 Mean Corpuscular Volume 98.3 Mean Platelet Volume 10.1 Monocytes # 1.0 H Monocytes % 9.9 Neutrophils # 8.2 H Neutrophils % 79.4 H Nucleated Red Blood Cells # 0.0 Nucleated Red Blood Cells % 0.0 Platelet Count 211 # Potassium Level 4.7 Red Blood Count 2.36 L Red Cell Distribution Width 13.1 Sodium Level 132 L White Blood Count 10.3 # Test 07/04/16 08:16 07/04/16 12:24 07/04/16 17:14 Bedside Glucose 147 314 H 226 H Medications Medications Current Medications IV Flush (NS 10 ml) 10 ml PRN PRN IV FLUSH LINE; Start 06/13/16 at 19:00 Aspirin (Halfprin) 81 mg DAILY PO Last administered on 07/04/16 08:51; Admin Dose 81 MG; Start 06/14/16 at 09:00 Atorvastatin Calcium (Lipitor) 10 mg QHS PO Last administered on 07/03/16 20:30 ; Admin Dose 10 MG; Start 06/14/16 at 21:00 Cholecalciferol (Vitamin D) 400 units DAILY PO Last administered on 07/04/16 08 :51; Admin Dose 400 UNITS; Start 06/14/16 at 09:00 Clopidogrel Bisulfate (plaVIX) 75 mg DAILY PO Last administered on 06/24/16 08 :36; Admin Dose 75 MG; Start 06/14/16 at 09:00; Status Future Hold Ferrous Sulfate (Ferrous Sulfate (Ec)) 325 mg BID PO Last administered on 08:50; Admin Dose 325 MG; Start 06/14/16 at 09:00 Acetaminophen (Tylenol Tab) 500 mg Q4H PRN PO PAIN AND OR ELEVATED TEMP Last administered on 07/02/16 00:32; Admin Dose 500 MG; Start 06/14/16 at 00:00 Heparin Sodium (Porcine) (Heparin (5000 Units/0.5 ml)) 5,000 unit BID SC Last administered on 07/04/16 08:55; Admin Dose 5,000 UNIT; Start 06/14/16 at 09:00 Miscellaneous Information 1 ea NOTE XX Last administered on 06/18/16 07:57; Admin Dose 1 EA; Start 06/14/16 at 00:30 Glucose (Glutose) 15 gm Q15M PRN PO DECREASED GLUCOSE; Start 06/14/16 at 00:30 Glucose (Glutose) 22.5 gm Q15M PRN PO DECREASED GLUCOSE; Start 06/14/16 at 00: 30 Dextrose (D50w Syringe) 25 ml Q15M PRN IV DECREASED GLUCOSE; Start 06/14/16 at 00:30 Dextrose (D50w Syringe) 50 ml Q15M PRN IV DECREASED GLUCOSE; Start 06/14/16 at 00:30 Glucagon (Glucagen) 1 mg Q15M PRN IM DECREASED GLUCOSE; Start 06/14/16 at 00:30 Glucose (Glutose) 15 gm Q15M PRN BUCCAL DECREASED GLUCOSE; Start 06/14/16 at 00 :30 Diagnostic Test (Pha) (Accucheck) 1 ea 02 XX Last administered on 07/04/16 02: 42; Admin Dose 1 EA; Start 06/14/16 at 02:00 Amlodipine Besylate (Norvasc) 5 mg BID PO Last administered on 07/04/16 08:52; Admin Dose 5 MG; Start 06/14/16 at 13:30 Clonidine (Catapres) 0.2 mg Q8 PRN PO Systolic >160 Last administered on 02:29; Admin Dose 0.2 MG; Start 06/14/16 at 13:00 Promethazine HCl/ Codeine (Phenergan/ Codeine) 5 ml Q4H PRN PO COUGH Last administered on 06/21/16 18:04; Admin Dose 5 ML; Start 06/15/16 at 00:00 Insulin Glargine (Lantus) 14 unit QHS SC Last administered on 06/23/16 20:31; Admin Dose 14 UNIT; Start 06/15/16 at 21:00; Status Future Hold Pantoprazole (Protonix Tab) 40 mg DAILY@06 PO Last administered on 07/04/16 05: 29; Admin Dose 40 MG; Start 06/16/16 at 06:00 Diphenhydramine HCl (Benadryl) 25 mg HS PRN PO INSOMNIA Last administered on 00:54; Admin Dose 25 MG; Start 06/15/16 at 21:30 Hydralazine HCl (Apresoline) 100 mg Q8 PO Last administered on 07/04/16 16:12; Admin Dose 100 MG; Start 06/19/16 at 13:00 Bisacodyl (Dulcolax) 10 mg DAILY PRN PO CONSTIPATION Last administered on 16:40; Admin Dose 10 MG; Start 06/22/16 at 11:30 Benazepril HCl (Lotensin) 40 mg BID PO Last administered on 07/04/16 08:52; Admin Dose 40 MG; Start 06/23/16 at 21:00 Metoprolol Tartrate (Lopressor) 50 mg BID PO Last administered on 07/04/16 08: 52; Admin Dose 50 MG; Start 06/26/16 at 09:00 Hydralazine HCl (Apresoline) 20 mg Q4H PRN IV for SBP more than 170; Start at 05:00 Ondansetron HCl (Zofran Inj) 4 mg Q6H PRN IV NAUSEA AND/OR VOMITING Last administered on 07/03/16 14:45; Admin Dose 4 MG; Start 06/28/16 at 05:00 Lorazepam (Ativan) 1 mg Q6H PRN IV ANXIETY Last administered on 07/02/16 01:46 ; Admin Dose 1 MG; Start 06/28/16 at 05:00 Clonidine (Catapres) 0.1 mg QID PO Last administered on 07/04/16 16:14; Admin Dose 0.1 MG; Start 06/28/16 at 13:00 Hydromorphone HCl (Dilaudid) 0.5 mg Q4H PRN IV PAIN Last administered on 11:05; Admin Dose 0.5 MG; Start 07/01/16 at 01:30 Hydromorphone HCl (Dilaudid) 1 mg Q3 PRN IV PAIN Last administered on 07/03/16 20:31; Admin Dose 1 MG; Start 07/01/16 at 14:00 Cyclobenzaprine HCl (Flexeril) 10 mg TID PO Last administered on 07/04/16 16:10 ; Admin Dose 10 MG; Start 07/03/16 at 21:00 CECILIA DAMICO Jul 04, 2016 17:44
[2016-07-04] MEDS: ATORVASTATIN 10 MG TAB PO SCH (20:36)
[2016-07-04] MEDS: ACETAMINOPHEN 500 MG TAB PO PRN (20:37)
[2016-07-05] VITALS (18 sets, daily range): BP systolic 109–158; BP diastolic 51–87; PULSE 19–73; RESP 16–19
[2016-07-05] MEDS: ACCU-CHEK XX SCH ×5 (02:00→20:49)
[2016-07-05] MEDS: ACETAMINOPHEN 500 MG TAB PO PRN (05:49)
[2016-07-05] MEDS: PANTOPRAZOLE (EC) 40 MG TAB PO SCH (05:49)
[2016-07-05 07:49] LABS: ADD SCAN DIFF NO
[2016-07-05 07:59] LABS: BASOPHILS % 0.5 % (0.0-2.0); EOSINOPHILS # 0.2 10^3/ul (0.0-0.5); EOSINOPHILS % 2.7 % (0.0-7.0); HEMATOCRIT 23.9 % (42.0-52.0); HEMOGLOBIN 7.9 g/dl (14.0-18.0); LYMPHOCYTES # 0.7 10^3/ul (0.8-2.9); MEAN CORPUSCULAR HEMOGLOBIN 32.9 pg (29.0-33.0); MEAN CORPUSCULAR HGB CONC 33.1 g/dl (32.0-37.0); MEAN CORPUSCULAR VOLUME 99.6 fl (82.0-101.0); MEAN PLATELET VOLUME 10.2 fl (7.4-10.4); MONOCYTE # 0.9 10^3/ul (0.3-0.9); MONOCYTES % 13.7 % (0.0-11.0); NEUTROPHIL # 4.5 10^3/ul (1.6-7.5); NEUTROPHILS % 71.5 % (39.0-77.0); PLATELET COUNT 244 10^3/UL (140-415); RED CELL DISTRIBUTION WIDTH 13.1 % (11.5-14.5); WHITE BLOOD COUNT 6.3 10^3/ul (4.8-10.8)
[2016-07-05] MEDS: INSULIN ASPART [NOVOLOG] 3 ML PEN SC SCH ×4 (08:06→20:46)
[2016-07-05] MEDS: SEVELAMER CARBONATE 0.8 GM PKT PO SCH ×3 (08:06→17:29)
[2016-07-05] MEDS: CALCIUM ACETATE 667 MG CAP PO SCH ×3 (08:06→17:29)
[2016-07-05] MEDS: HEPARIN 5,000 UNIT/0.5 ML SYG SC SCH ×2 (08:10→20:48)
[2016-07-05] MEDS: CYCLOBENZAPRINE 10 MG TAB PO SCH ×3 (08:11→20:41)
[2016-07-05] MEDS: CHOLECALCIFEROL 400 UNITS TAB PO SCH (08:11)
[2016-07-05] MEDS: FERROUS SULFATE (EC) 325 MG TAB PO SCH ×2 (08:11→20:40)
[2016-07-05] MEDS: ASPIRIN (EC) 81 MG TAB PO SCH (08:11)
[2016-07-05 08:13] LABS: POTASSIUM 3.9 mmol/L (3.5-5.1)
[2016-07-05 08:16] LABS: CREATININE 9.22 mg/dl (0.61-1.24)
[2016-07-05 08:17] LABS: CALCIUM 8.8 mg/dl (8.4-10.2); MAGNESIUM 2.6 mg/dl (1.7-2.5); PHOSPHORUS 5.2 mg/dl (2.5-4.9)
[2016-07-05] MEDS: AMLODIPINE 5 MG TAB PO SCH ×2 (08:20→20:41)
[2016-07-05] MEDS: BENAZEPRIL 40 MG TAB PO SCH ×2 (08:20→20:41)
[2016-07-05] MEDS: METOPROLOL 25 MG TAB PO SCH ×2 (08:20→20:40)
--- NOTE | 2016-07-05 11:33 | PN ---
Date/Time of Note Date/Time of Note DATE: 07/05/16 TIME: 11:32 Assessment/Plan VTE Prophylaxis VTE Prophylaxis Intervention: other Lines/Catheters IV Catheter Type (from [facility]): PICC Line Central line still needed: Yes Urinary Cath still in place: Yes Reason Cath still needed: skin wounds contaminated by urine Assessment/Plan Chief Complaint/Hosp Course - Right pleural effusion, status post thoracentesis. Dr. Dale is following in pulmonology consultation. - End-stage renal disease, continue hemodialysis. Dr. Saunders is following in nephrology consultation. - Diabetes mellitus type 2, continue Lantus and NovoLog - Hypertension. Dr. De Santiago is following and cardiology consultation. - Coronary artery disease, status post coronary artery bypass graft. Continue aspirin and Plavix. - Permanent pacemaker. No acute issues. - Dyslipidemia. Continue Lipitor. Continue heparin for deep venous thrombosis prophylaxis and Protonix for peptic ulcer disease prophylaxis. Problems: Subjective 24 Hr Interval Summary Free Text/Dictation Patient has no complaints Exam/Review of Systems Vital Signs Vitals Vital Signs Date Time Temp Pulse Resp B/P Pulse Ox O2 Delivery O2 Flow Rate FiO2 07/05/16 08:27 69 07/05/16 08:00 Nasal Cannula 3.0 07/05/16 07:38 98.0 16 120/52 97 Intake and Output 07/04/16 07/04/16 07/05/16 15:00 23:00 07:00 Intake Total 480 ml Output Total 880 ml 500 ml Balance -880 ml -20 ml Exam Constitutional: well developed Head: atraumatic, normocephalic Neck: supple Respiratory: diminished breath sounds Cardiovascular: regular rate and rhythm Gastrointestinal: non-tender, soft Results Result Diagram: 07/05/16 0643 07/05/16 0643 Results 24 hrs Laboratory Tests Test 07/04/16 12:24 07/04/16 17:14 07/04/16 20:34 07/05/16 01:00 Bedside Glucose 314 H 226 H 213 229 H Test 07/05/16 06:43 07/05/16 07:48 Anion Gap 15 Basophils # 0.0 Basophils % 0.5 Blood Urea Nitrogen 76 H Calcium Level 8.8 Carbon Dioxide Level 29 Chloride Level 90 L Creatinine 9.22 H Eosinophils # 0.2 Eosinophils % 2.7 Glucose Level 291 #H Hematocrit 23.9 L Hemoglobin 7.9 L Lymphocytes # 0.7 L Lymphocytes % 11.0 L Magnesium Level 2.6 H Mean Corpuscular Hemoglobin 32.9 Mean Corpuscular Hemoglobin Concent 33.1 Mean Corpuscular Volume 99.6 Mean Platelet Volume 10.2 Monocytes # 0.9 Monocytes % 13.7 H Neutrophils # 4.5 Neutrophils % 71.5 Nucleated Red Blood Cells # 0.0 Nucleated Red Blood Cells % 0.0 Phosphorus Level 5.2 H Platelet Count 244 Potassium Level 3.9 Red Blood Count 2.40 L Red Cell Distribution Width 13.1 Sodium Level 130 L White Blood Count 6.3 # Bedside Glucose 297 H Medications Medications Current Medications IV Flush (NS 10 ml) 10 ml PRN PRN IV FLUSH LINE; Start 06/13/16 at 19:00 Aspirin (Halfprin) 81 mg DAILY PO Last administered on 07/05/16 08:11; Admin Dose 81 MG; Start 06/14/16 at 09:00 Atorvastatin Calcium (Lipitor) 10 mg QHS PO Last administered on 07/04/16 20:36 ; Admin Dose 10 MG; Start 06/14/16 at 21:00 Cholecalciferol (Vitamin D) 400 units DAILY PO Last administered on 07/05/16 08 :11; Admin Dose 400 UNITS; Start 06/14/16 at 09:00 Clopidogrel Bisulfate (plaVIX) 75 mg DAILY PO Last administered on 06/24/16 08 :36; Admin Dose 75 MG; Start 06/14/16 at 09:00; Status Future Hold Ferrous Sulfate (Ferrous Sulfate (Ec)) 325 mg BID PO Last administered on 08:11; Admin Dose 325 MG; Start 06/14/16 at 09:00 Acetaminophen (Tylenol Tab) 500 mg Q4H PRN PO PAIN AND OR ELEVATED TEMP Last administered on 07/05/16 05:49; Admin Dose 500 MG; Start 06/14/16 at 00:00 Heparin Sodium (Porcine) (Heparin (5000 Units/0.5 ml)) 5,000 unit BID SC Last administered on 07/05/16 08:10; Admin Dose 5,000 UNIT; Start 06/14/16 at 09:00 Miscellaneous Information 1 ea NOTE XX Last administered on 06/18/16 07:57; Admin Dose 1 EA; Start 06/14/16 at 00:30 Glucose (Glutose) 15 gm Q15M PRN PO DECREASED GLUCOSE; Start 06/14/16 at 00:30 Glucose (Glutose) 22.5 gm Q15M PRN PO DECREASED GLUCOSE; Start 06/14/16 at 00: 30 Dextrose (D50w Syringe) 25 ml Q15M PRN IV DECREASED GLUCOSE; Start 06/14/16 at 00:30 Dextrose (D50w Syringe) 50 ml Q15M PRN IV DECREASED GLUCOSE; Start 06/14/16 at 00:30 Glucagon (Glucagen) 1 mg Q15M PRN IM DECREASED GLUCOSE; Start 06/14/16 at 00:30 Glucose (Glutose) 15 gm Q15M PRN BUCCAL DECREASED GLUCOSE; Start 06/14/16 at 00 :30 Diagnostic Test (Pha) (Accucheck) 1 ea 02 XX Last administered on 07/04/16 02: 42; Admin Dose 1 EA; Start 06/14/16 at 02:00 Amlodipine Besylate (Norvasc) 5 mg BID PO Last administered on 07/04/16 20:37; Admin Dose 5 MG; Start 06/14/16 at 13:30 Clonidine (Catapres) 0.2 mg Q8 PRN PO Systolic >160 Last administered on 02:29; Admin Dose 0.2 MG; Start 06/14/16 at 13:00 Promethazine HCl/ Codeine (Phenergan/ Codeine) 5 ml Q4H PRN PO COUGH Last administered on 06/21/16 18:04; Admin Dose 5 ML; Start 06/15/16 at 00:00 Insulin Glargine (Lantus) 14 unit QHS SC Last administered on 06/23/16 20:31; Admin Dose 14 UNIT; Start 06/15/16 at 21:00; Status Future Hold Pantoprazole (Protonix Tab) 40 mg DAILY@06 PO Last administered on 07/05/16 05: 49; Admin Dose 40 MG; Start 06/16/16 at 06:00 Diphenhydramine HCl (Benadryl) 25 mg HS PRN PO INSOMNIA Last administered on 00:54; Admin Dose 25 MG; Start 06/15/16 at 21:30 Hydralazine HCl (Apresoline) 100 mg Q8 PO Last administered on 07/05/16 05:48; Admin Dose 100 MG; Start 06/19/16 at 13:00 Bisacodyl (Dulcolax) 10 mg DAILY PRN PO CONSTIPATION Last administered on 16:40; Admin Dose 10 MG; Start 06/22/16 at 11:30 Benazepril HCl (Lotensin) 40 mg BID PO Last administered on 07/04/16 20:36; Admin Dose 40 MG; Start 06/23/16 at 21:00 Metoprolol Tartrate (Lopressor) 50 mg BID PO Last administered on 07/04/16 20: 36; Admin Dose 50 MG; Start 06/26/16 at 09:00 Hydralazine HCl (Apresoline) 20 mg Q4H PRN IV for SBP more than 170; Start at 05:00 Ondansetron HCl (Zofran Inj) 4 mg Q6H PRN IV NAUSEA AND/OR VOMITING Last administered on 07/03/16 14:45; Admin Dose 4 MG; Start 06/28/16 at 05:00 Lorazepam (Ativan) 1 mg Q6H PRN IV ANXIETY Last administered on 07/02/16 01:46 ; Admin Dose 1 MG; Start 06/28/16 at 05:00 Clonidine (Catapres) 0.1 mg QID PO Last administered on 07/04/16 20:37; Admin Dose 0.1 MG; Start 06/28/16 at 13:00 Hydromorphone HCl (Dilaudid) 0.5 mg Q4H PRN IV PAIN Last administered on 11:05; Admin Dose 0.5 MG; Start 07/01/16 at 01:30 Hydromorphone HCl (Dilaudid) 1 mg Q3 PRN IV PAIN Last administered on 07/03/16 20:31; Admin Dose 1 MG; Start 07/01/16 at 14:00 Cyclobenzaprine HCl (Flexeril) 10 mg TID PO Last administered on 07/05/16 08:11 ; Admin Dose 10 MG; Start 07/03/16 at 21:00 HELEN SHARP 4, 2017 11:32
--- NOTE | 2016-07-05 13:10 | PN ---
Date/Time of Note Date/Time of Note DATE: 07/05/16 TIME: 13:08 Assessment/Plan VTE Prophylaxis VTE Prophylaxis Intervention: other Lines/Catheters IV [facility]ter Type (from [facility]): Urinary Cath still in place: No Assessment/Plan Chief Complaint/Hosp Course IMPRESSION: Bilateral pleural effusions status post thoracentesis with much improvement. SP VATS Decortication CT [address] sxn Problems: Exam/Review of Systems Vital Signs Vitals Vital Signs Date Time Temp Pulse Resp B/P Pulse Ox O2 Delivery O2 Flow Rate FiO2 07/05/16 12:48 69 07/05/16 11:49 98.4 16 126/70 97 07/05/16 08:00 Nasal Cannula 3.0 Intake and Output 07/04/16 07/04/16 07/05/16 15:00 23:00 07:00 Intake Total 480 ml Output Total 880 ml 500 ml Balance -880 ml -20 ml Exam Neck: non-tender, supple Respiratory: clear to auscultation, normal air movement Cardiovascular: nl pulses, regular rate and rhythm Results Result Diagram: 07/05/1643 07/05/16 0643 Results 24 hrs Laboratory Tests Test 07/04/16 17:14 07/04/16 20:34 07/05/16 01:00 07/05/16 06:43 Bedside Glucose 226 H 213 229 H Anion Gap 15 Basophils # 0.0 Basophils % 0.5 Blood Urea Nitrogen 76 H Calcium Level 8.8 Carbon Dioxide Level 29 Chloride Level 90 L Creatinine 9.22 H Eosinophils # 0.2 Eosinophils % 2.7 Glucose Level 291 #H Hematocrit 23.9 L Hemoglobin 7.9 L Lymphocytes # 0.7 L Lymphocytes % 11.0 L Magnesium Level 2.6 H Mean Corpuscular Hemoglobin 32.9 Mean Corpuscular Hemoglobin Concent 33.1 Mean Corpuscular Volume 99.6 Mean Platelet Volume 10.2 Monocytes # 0.9 Monocytes % 13.7 H Neutrophils # 4.5 Neutrophils % 71.5 Nucleated Red Blood Cells # 0.0 Nucleated Red Blood Cells % 0.0 Phosphorus Level 5.2 H Platelet Count 244 Potassium Level 3.9 Red Blood Count 2.40 L Red Cell Distribution Width 13.1 Sodium Level 130 L White Blood Count 6.3 # Test 07/05/16 07:48 07/05/16 11:40 Bedside Glucose 297 H 352 H Medications Medications Current Medications IV Flush (NS 10 ml) 10 ml PRN PRN IV FLUSH LINE; Start 06/13/16 at 19:00 Aspirin (Halfprin) 81 mg DAILY PO Last administered on 07/05/16 08:11; Admin Dose 81 MG; Start 06/14/16 at 09:00 Atorvastatin Calcium (Lipitor) 10 mg QHS PO Last administered on 07/04/16 20:36 ; Admin Dose 10 MG; Start 06/14/16 at 21:00 Cholecalciferol (Vitamin D) 400 units DAILY PO Last administered on 07/05/16 08 :11; Admin Dose 400 UNITS; Start 06/14/16 at 09:00 Clopidogrel Bisulfate (plaVIX) 75 mg DAILY PO Last administered on 06/24/16 08 :36; Admin Dose 75 MG; Start 06/14/16 at 09:00; Status Future Hold Ferrous Sulfate (Ferrous Sulfate (Ec)) 325 mg BID PO Last administered on 08:11; Admin Dose 325 MG; Start 06/14/16 at 09:00 Acetaminophen (Tylenol Tab) 500 mg Q4H PRN PO PAIN AND OR ELEVATED TEMP Last administered on 07/05/16 05:49; Admin Dose 500 MG; Start 06/14/16 at 00:00 Heparin Sodium (Porcine) (Heparin (5000 Units/0.5 ml)) 5,000 unit BID SC Last administered on 07/05/16 08:10; Admin Dose 5,000 UNIT; Start 06/14/16 at 09:00 Miscellaneous Information 1 ea NOTE XX Last administered on 06/18/16 07:57; Admin Dose 1 EA; Start 06/14/16 at 00:30 Glucose (Glutose) 15 gm Q15M PRN PO DECREASED GLUCOSE; Start 06/14/16 at 00:30 Glucose (Glutose) 22.5 gm Q15M PRN PO DECREASED GLUCOSE; Start 06/14/16 at 00: 30 Dextrose (D50w Syringe) 25 ml Q15M PRN IV DECREASED GLUCOSE; Start 06/14/16 at 00:30 Dextrose (D50w Syringe) 50 ml Q15M PRN IV DECREASED GLUCOSE; Start 06/14/16 at 00:30 Glucagon (Glucagen) 1 mg Q15M PRN IM DECREASED GLUCOSE; Start 06/14/16 at 00:30 Glucose (Glutose) 15 gm Q15M PRN BUCCAL DECREASED GLUCOSE; Start 06/14/16 at 00 :30 Diagnostic Test (Pha) (Accucheck) 1 ea 02 XX Last administered on 07/04/16 02: 42; Admin Dose 1 EA; Start 06/14/16 at 02:00 Amlodipine Besylate (Norvasc) 5 mg BID PO Last administered on 07/04/16 20:37; Admin Dose 5 MG; Start 06/14/16 at 13:30 Clonidine (Catapres) 0.2 mg Q8 PRN PO Systolic >160 Last administered on 02:29; Admin Dose 0.2 MG; Start 06/14/16 at 13:00 Promethazine HCl/ Codeine (Phenergan/ Codeine) 5 ml Q4H PRN PO COUGH Last administered on 06/21/16 18:04; Admin Dose 5 ML; Start 06/15/16 at 00:00 Insulin Glargine (Lantus) 14 unit QHS SC Last administered on 06/23/16 20:31; Admin Dose 14 UNIT; Start 06/15/16 at 21:00; Status Future Hold Pantoprazole (Protonix Tab) 40 mg DAILY@06 PO Last administered on 07/05/16 05: 49; Admin Dose 40 MG; Start 06/16/16 at 06:00 Diphenhydramine HCl (Benadryl) 25 mg HS PRN PO INSOMNIA Last administered on 00:54; Admin Dose 25 MG; Start 06/15/16 at 21:30 Hydralazine HCl (Apresoline) 100 mg Q8 PO Last administered on 07/05/16 05:48; Admin Dose 100 MG; Start 06/19/16 at 13:00 Bisacodyl (Dulcolax) 10 mg DAILY PRN PO CONSTIPATION Last administered on 16:40; Admin Dose 10 MG; Start 06/22/16 at 11:30 Benazepril HCl (Lotensin) 40 mg BID PO Last administered on 07/04/16 20:36; Admin Dose 40 MG; Start 06/23/16 at 21:00 Metoprolol Tartrate (Lopressor) 50 mg BID PO Last administered on 07/04/16 20: 36; Admin Dose 50 MG; Start 06/26/16 at 09:00 Hydralazine HCl (Apresoline) 20 mg Q4H PRN IV for SBP more than 170; Start at 05:00 Ondansetron HCl (Zofran Inj) 4 mg Q6H PRN IV NAUSEA AND/OR VOMITING Last administered on 07/03/16 14:45; Admin Dose 4 MG; Start 06/28/16 at 05:00 Lorazepam (Ativan) 1 mg Q6H PRN IV ANXIETY Last administered on 07/02/16 01:46 ; Admin Dose 1 MG; Start 06/28/16 at 05:00 Clonidine (Catapres) 0.1 mg QID PO Last administered on 07/04/16 20:37; Admin Dose 0.1 MG; Start 06/28/16 at 13:00 Hydromorphone HCl (Dilaudid) 0.5 mg Q4H PRN IV PAIN Last administered on 11:05; Admin Dose 0.5 MG; Start 07/01/16 at 01:30 Hydromorphone HCl (Dilaudid) 1 mg Q3 PRN IV PAIN Last administered on 07/03/16 20:31; Admin Dose 1 MG; Start 07/01/16 at 14:00 Cyclobenzaprine HCl (Flexeril) 10 mg TID PO Last administered on 07/05/16 08:11 ; Admin Dose 10 MG; Start 07/03/16 at 21:00 LILIA FELIZ MD Jul 05, 2016 13:10
--- NOTE | 2016-07-05 14:18 | CONS ---
Date/Time of Note Date/Time of Note DATE: 07/05/16 TIME: 14:12 Assessment/Plan Assessment/Plan Additional Assessment/Plan ASSESSMENT AND PLAN: 1. Abnormal electrocardiogram 2. CAD s/p percutaneous transluminal coronary angioplasty and stent placement in 2014 to the left main left anterior descending. 3. Hypertension 4. Dyslipidemia. 5. Pleural effusion, status post thoracentesis. 6. Diabetes mellitus. 7. End-stage renal disease, on hemodialysis. RECOMMENDATIONS: Continue on Tele Continue metoprolol Started on Plavix Continue Benazepril, Norvasc, Hydralazine Continue asa/statin Continue Insulin Continue HD as scheduled Continue GI and DVT Prophylaxis Consultation Date/Type/Reason Admit Date/Time Jun 13, 2016 at 14:48 Constitutional: other (SOB+), requiring O2 Eyes: no complaints ENT: no complaints Respiratory: other (no hemoptysis), pain, pleuritic pain, No cough, No sputum Cardiovascular: chest pain Gastrointestinal: no complaints Genitourinary: other (HD) Musculoskeletal: no complaints Skin: no complaints Neurologic: no complaints Endocrine: no complaints Lymphatic: no complaints Psychological: nl mood/affect, no complaints Immunologic: no complaints Past Medical History Medical History: congestive heart failure, coronary artery disease, diabetes, hypertension, renal disease Past Surgical History Past Surgical Hx: no surgical history, angioplasty Social History Alcohol Use: none Smoking Status: Never smoker Drug Use: none Exam/Review of Systems Vital Signs Vitals Vital Signs Date Time Temp Pulse Resp B/P Pulse Ox O2 Delivery O2 Flow Rate FiO2 07/05/16 14:00 67 07/05/16 13:00 18 07/05/16 11:49 98.4 126/70 97 07/05/16 08:00 Nasal Cannula 3.0 Intake and Output 07/04/16 07/04/16 07/05/16 15:00 23:00 07:00 Intake Total 480 ml Output Total 880 ml 500 ml Balance -880 ml -20 ml Exam Constitutional: alert Head: atraumatic, normocephalic Neck: non-tender, supple Respiratory: clear to auscultation, other (Chest Tube in palce) Cardiovascular: regular rate and rhythm Gastrointestinal: nl liver, spleen, non-tender, soft Extremities: normal pulses Results Result Diagram: 07/05/16 0643 07/05/16 0643 Results 24 hrs Laboratory Tests Test 07/04/16:14 07/04/16 20:34 07/05/16 01:00 07/05/16 06:43 Bedside Glucose 226 H 213 229 H Anion Gap 15 Basophils # 0.0 Basophils % 0.5 Blood Urea Nitrogen 76 H Calcium Level 8.8 Carbon Dioxide Level 29 Chloride Level 90 L Creatinine 9.22 H Eosinophils # 0.2 Eosinophils % 2.7 Glucose Level 291 #H Hematocrit 23.9 L Hemoglobin 7.9 L Lymphocytes # 0.7 L Lymphocytes % 11.0 L Magnesium Level 2.6 H Mean Corpuscular Hemoglobin 32.9 Mean Corpuscular Hemoglobin Concent 33.1 Mean Corpuscular Volume 99.6 Mean Platelet Volume 10.2 Monocytes # 0.9 Monocytes % 13.7 H Neutrophils # 4.5 Neutrophils % 71.5 Nucleated Red Blood Cells # 0.0 Nucleated Red Blood Cells % 0.0 Phosphorus Level 5.2 H Platelet Count 244 Potassium Level 3.9 Red Blood Count 2.40 L Red Cell Distribution Width 13.1 Sodium Level 130 L White Blood Count 6.3 # Test 07/05/16 07:48 07/05/16 11:40 Bedside Glucose 297 H 352 H Medications Medications Current Medications IV Flush (NS 10 ml) 10 ml PRN PRN IV FLUSH LINE; Start 06/13/16 at 19:00 Aspirin (Halfprin) 81 mg DAILY PO Last administered on 07/05/16 08:11; Admin Dose 81 MG; Start 06/14/16 at 09:00 Atorvastatin Calcium (Lipitor) 10 mg QHS PO Last administered on 07/04/16 20:36 ; Admin Dose 10 MG; Start 06/14/16 at 21:00 Cholecalciferol (Vitamin D) 400 units DAILY PO Last administered on 07/05/16 08 :11; Admin Dose 400 UNITS; Start 06/14/16 at 09:00 Clopidogrel Bisulfate (plaVIX) 75 mg DAILY PO Last administered on 06/24/16 08 :36; Admin Dose 75 MG; Start 06/14/16 at 09:00; Status Future Hold Ferrous Sulfate (Ferrous Sulfate (Ec)) 325 mg BID PO Last administered on 08:11; Admin Dose 325 MG; Start 06/14/16 at 09:00 Acetaminophen (Tylenol Tab) 500 mg Q4H PRN PO PAIN AND OR ELEVATED TEMP Last administered on 07/05/16 05:49; Admin Dose 500 MG; Start 06/14/16 at 00:00 Heparin Sodium (Porcine) (Heparin (5000 Units/0.5 ml)) 5,000 unit BID SC Last administered on 07/05/16 08:10; Admin Dose 5,000 UNIT; Start 06/14/16 at 09:00 Miscellaneous Information 1 ea NOTE XX Last administered on 06/18/16 07:57; Admin Dose 1 EA; Start 06/14/16 at 00:30 Glucose (Glutose) 15 gm Q15M PRN PO DECREASED GLUCOSE; Start 06/14/16 at 00:30 Glucose (Glutose) 22.5 gm Q15M PRN PO DECREASED GLUCOSE; Start 06/14/16 at 00: 30 Dextrose (D50w Syringe) 25 ml Q15M PRN IV DECREASED GLUCOSE; Start 06/14/16 at 00:30 Dextrose (D50w Syringe) 50 ml Q15M PRN IV DECREASED GLUCOSE; Start 06/14/16 at 00:30 Glucagon (Glucagen) 1 mg Q15M PRN IM DECREASED GLUCOSE; Start 06/14/16 at 00:30 Glucose (Glutose) 15 gm Q15M PRN BUCCAL DECREASED GLUCOSE; Start 06/14/16 at 00 :30 Diagnostic Test (Pha) (Accucheck) 1 ea 02 XX Last administered on 07/04/16 02: 42; Admin Dose 1 EA; Start 06/14/16 at 02:00 Amlodipine Besylate (Norvasc) 5 mg BID PO Last administered on 07/04/16 20:37; Admin Dose 5 MG; Start 06/14/16 at 13:30 Clonidine (Catapres) 0.2 mg Q8 PRN PO Systolic >160 Last administered on 02:29; Admin Dose 0.2 MG; Start 06/14/16 at 13:00 Promethazine HCl/ Codeine (Phenergan/ Codeine) 5 ml Q4H PRN PO COUGH Last administered on 06/21/16 18:04; Admin Dose 5 ML; Start 06/15/16 at 00:00 Insulin Glargine (Lantus) 14 unit QHS SC Last administered on 06/23/16 20:31; Admin Dose 14 UNIT; Start 06/15/16 at 21:00; Status Future Hold Pantoprazole (Protonix Tab) 40 mg DAILY@06 PO Last administered on 07/05/16 05: 49; Admin Dose 40 MG; Start 06/16/16 at 06:00 Diphenhydramine HCl (Benadryl) 25 mg HS PRN PO INSOMNIA Last administered on 00:54; Admin Dose 25 MG; Start 06/15/16 at 21:30 Hydralazine HCl (Apresoline) 100 mg Q8 PO Last administered on 07/05/16 05:48; Admin Dose 100 MG; Start 06/19/16 at 13:00 Bisacodyl (Dulcolax) 10 mg DAILY PRN PO CONSTIPATION Last administered on 16:40; Admin Dose 10 MG; Start 06/22/16 at 11:30 Benazepril HCl (Lotensin) 40 mg BID PO Last administered on 07/04/16 20:36; Admin Dose 40 MG; Start 06/23/16 at 21:00 Metoprolol Tartrate (Lopressor) 50 mg BID PO Last administered on 07/04/16 20: 36; Admin Dose 50 MG; Start 06/26/16 at 09:00 Hydralazine HCl (Apresoline) 20 mg Q4H PRN IV for SBP more than 170; Start at 05:00 Ondansetron HCl (Zofran Inj) 4 mg Q6H PRN IV NAUSEA AND/OR VOMITING Last administered on 07/03/16 14:45; Admin Dose 4 MG; Start 06/28/16 at 05:00 Lorazepam (Ativan) 1 mg Q6H PRN IV ANXIETY Last administered on 07/02/16 01:46 ; Admin Dose 1 MG; Start 06/28/16 at 05:00 Clonidine (Catapres) 0.1 mg QID PO Last administered on 07/04/16 20:37; Admin Dose 0.1 MG; Start 06/28/16 at 13:00 Hydromorphone HCl (Dilaudid) 0.5 mg Q4H PRN IV PAIN Last administered on 11:05; Admin Dose 0.5 MG; Start 07/01/16 at 01:30 Hydromorphone HCl (Dilaudid) 1 mg Q3 PRN IV PAIN Last administered on 07/03/16 20:31; Admin Dose 1 MG; Start 07/01/16 at 14:00 Cyclobenzaprine HCl (Flexeril) 10 mg TID PO Last administered on 07/05/16 08:11 ; Admin Dose 10 MG; Start 07/03/16 at 21:00 PHILL PAGE M.D. Jul 05, 2016 14:18
--- NOTE | 2016-07-05 15:18 | RADRPT ---
PROCEDURE: XR Chest. CLINICAL INDICATION: Shortness of breath. TECHNIQUE: Single frontal view. COMPARISON: 07/03/2016. FINDINGS: There is patchy air space disease in the right mid and lower lung zones consistent with atelectasis or pneumonia, slightly worse than seen previously. The right chest tube is noted. There is a right pleural effusion with probably in the fissure. The left lung is clear and there is no left pleural effusion. The heart size is normal. Calcification is present in the aorta consistent with atherosclerosis. There is a permanent pacemaker with leads in the right atrium and right ventricle. There are sterna l wires. There is no pneumothorax. Surgical clips are present in the right upper extremity soft tissues media lly. IMPRESSION: 1. Slightly worse appearance of the right lung base. 2. No other change from 07/03/2016. RPTAT: QQ .Robby Bennett MD, Date Time Electronically viewed and signed by .Robby Bennett MD, on 07/05/2016 15:18 .R/
[2016-07-05] MEDS: CLOPIDOGREL 75 MG TAB PO SCH (16:17)
[2016-07-05] MEDS: HYDROmorphONE 1 MG/ML SYG IV PRN (16:18)
--- NOTE | 2016-07-05 16:24 | CONS ---
Date/Time of Note Date/Time of Note DATE: 07/05/16 TIME: 16:22 Consult Date/Type/Reason Admit Date/Time Jun 13, 2016 at 14:48 Type of Consultation: Pulm Ordering Provider: EVA COX MD Subjective No events. Objective Vital Signs Date Time Temp Pulse Resp B/P Pulse Ox O2 Delivery O2 Flow Rate FiO2 07/05/16 15:56 98.4 63 18 137/87 98 07/05/16 08:00 Nasal Cannula 3.0 Intake and Output 07/04/16 07/04/16 07/05/16 15:00 23:00 07:00 Intake Total 480 ml Output Total 880 ml 500 ml Balance -880 ml -20 ml HEENT: Normocephalic, atraumatic. NECK: Supple. Jugular venous pressures are elevated. CARDIOVASCULAR: Regular rate and rhythm, S1 and S2, II/ systolic murmur. CHEST: There are decreased breath sounds at the right base greater than left base, otherwise clear. ABDOMEN: Soft, nontender, no hepatosplenomegaly. EXTREMITIES: There is trace lower extremity edema. Results/Medications Result Diagram: 07/05/16 0643 07/05/16 0643 Results 24 hrs Laboratory Tests Test 07/04/16 17:14 07/04/16 20:34 07/05/16 01:00 07/05/16 06:43 Bedside Glucose 226 H 213 229 H Anion Gap 15 Basophils # 0.0 Basophils % 0.5 Blood Urea Nitrogen 76 H Calcium Level 8.8 Carbon Dioxide Level 29 Chloride Level 90 L Creatinine 9.22 H Eosinophils # 0.2 Eosinophils % 2.7 Glucose Level 291 #H Hematocrit 23.9 L Hemoglobin 7.9 L Lymphocytes # 0.7 L Lymphocytes % 11.0 L Magnesium Level 2.6 H Mean Corpuscular Hemoglobin 32.9 Mean Corpuscular Hemoglobin Concent 33.1 Mean Corpuscular Volume 99.6 Mean Platelet Volume 10.2 Monocytes # 0.9 Monocytes % 13.7 H Neutrophils # 4.5 Neutrophils % 71.5 Nucleated Red Blood Cells # 0.0 Nucleated Red Blood Cells % 0.0 Phosphorus Level 5.2 H Platelet Count 244 Potassium Level 3.9 Red Blood Count 2.40 L Red Cell Distribution Width 13.1 Sodium Level 130 L White Blood Count 6.3 # Test 07/05/16 07:48 07/05/16 11:40 Bedside Glucose 297 H 352 H Medications Current Medications IV Flush (NS 10 ml) 10 ml PRN PRN IV FLUSH LINE; Start 06/13/16 at 19:00 Aspirin (Halfprin) 81 mg DAILY PO Last administered on 07/05/16 08:11; Admin Dose 81 MG; Start 06/14/16 at 09:00 Atorvastatin Calcium (Lipitor) 10 mg QHS PO Last administered on 07/04/16 20:36 ; Admin Dose 10 MG; Start 06/14/16 at 21:00 Cholecalciferol (Vitamin D) 400 units DAILY PO Last administered on 07/05/16 08 :11; Admin Dose 400 UNITS; Start 06/14/16 at 09:00 Ferrous Sulfate (Ferrous Sulfate (Ec)) 325 mg BID PO Last administered on 08:11; Admin Dose 325 MG; Start 06/14/16 at 09:00 Acetaminophen (Tylenol Tab) 500 mg Q4H PRN PO PAIN AND OR ELEVATED TEMP Last administered on 07/05/16 05:49; Admin Dose 500 MG; Start 06/14/16 at 00:00 Heparin Sodium (Porcine) (Heparin (5000 Units/0.5 ml)) 5,000 unit BID SC Last administered on 07/05/16 08:10; Admin Dose 5,000 UNIT; Start 06/14/16 at 09:00 Miscellaneous Information 1 ea NOTE XX Last administered on 06/18/16 07:57; Admin Dose 1 EA; Start 06/14/16 at 00:30 Glucose (Glutose) 15 gm Q15M PRN PO DECREASED GLUCOSE; Start 06/14/16 at 00:30 Glucose (Glutose) 22.5 gm Q15M PRN PO DECREASED GLUCOSE; Start 06/14/16 at 00: 30 Dextrose (D50w Syringe) 25 ml Q15M PRN IV DECREASED GLUCOSE; Start 06/14/16 at 00:30 Dextrose (D50w Syringe) 50 ml Q15M PRN IV DECREASED GLUCOSE; Start 06/14/16 at 00:30 Glucagon (Glucagen) 1 mg Q15M PRN IM DECREASED GLUCOSE; Start 06/14/16 at 00:30 Glucose (Glutose) 15 gm Q15M PRN BUCCAL DECREASED GLUCOSE; Start 06/14/16 at 00 :30 Diagnostic Test (Pha) (Accucheck) 1 ea 02 XX Last administered on 07/04/16 02: 42; Admin Dose 1 EA; Start 06/14/16 at 02:00 Amlodipine Besylate (Norvasc) 5 mg BID PO Last administered on 07/04/16 20:37; Admin Dose 5 MG; Start 06/14/16 at 13:30 Clonidine (Catapres) 0.2 mg Q8 PRN PO Systolic >160 Last administered on 02:29; Admin Dose 0.2 MG; Start 06/14/16 at 13:00 Promethazine HCl/ Codeine (Phenergan/ Codeine) 5 ml Q4H PRN PO COUGH Last administered on 06/21/16 18:04; Admin Dose 5 ML; Start 06/15/16 at 00:00 Insulin Glargine (Lantus) 14 unit QHS SC Last administered on 06/23/16 20:31; Admin Dose 14 UNIT; Start 06/15/16 at 21:00; Status Future Hold Pantoprazole (Protonix Tab) 40 mg DAILY@06 PO Last administered on 07/05/16 05: 49; Admin Dose 40 MG; Start 06/16/16 at 06:00 Diphenhydramine HCl (Benadryl) 25 mg HS PRN PO INSOMNIA Last administered on 00:54; Admin Dose 25 MG; Start 06/15/16 at 21:30 Hydralazine HCl (Apresoline) 100 mg Q8 PO Last administered on 07/05/16 05:48; Admin Dose 100 MG; Start 06/19/16 at 13:00 Bisacodyl (Dulcolax) 10 mg DAILY PRN PO CONSTIPATION Last administered on 16:40; Admin Dose 10 MG; Start 06/22/16 at 11:30 Benazepril HCl (Lotensin) 40 mg BID PO Last administered on 07/04/16 20:36; Admin Dose 40 MG; Start 06/23/16 at 21:00 Metoprolol Tartrate (Lopressor) 50 mg BID PO Last administered on 07/04/16 20: 36; Admin Dose 50 MG; Start 06/26/16 at 09:00 Hydralazine HCl (Apresoline) 20 mg Q4H PRN IV for SBP more than 170; Start at 05:00 Ondansetron HCl (Zofran Inj) 4 mg Q6H PRN IV NAUSEA AND/OR VOMITING Last administered on 07/03/16 14:45; Admin Dose 4 MG; Start 06/28/16 at 05:00 Lorazepam (Ativan) 1 mg Q6H PRN IV ANXIETY Last administered on 07/02/16 01:46 ; Admin Dose 1 MG; Start 06/28/16 at 05:00 Clonidine (Catapres) 0.1 mg QID PO Last administered on 07/04/16 20:37; Admin Dose 0.1 MG; Start 06/28/16 at 13:00 Hydromorphone HCl (Dilaudid) 0.5 mg Q4H PRN IV PAIN Last administered on 11:05; Admin Dose 0.5 MG; Start 07/01/16 at 01:30 Hydromorphone HCl (Dilaudid) 1 mg Q3 PRN IV PAIN Last administered on 07/03/16 20:31; Admin Dose 1 MG; Start 07/01/16 at 14:00 Cyclobenzaprine HCl (Flexeril) 10 mg TID PO Last administered on 07/05/16 08:11 ; Admin Dose 10 MG; Start 07/03/16 at 21:00 Clopidogrel Bisulfate (plaVIX) 75 mg DAILY PO ; Start 07/05/16 at 15:00 Assessment/Plan Additional Assessment/Plan IMP: 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 RIPE/B6 2. follow-up MTB PCR SONYA ODEN MD Jul 05, 2016 16:23
--- NOTE | 2016-07-05 17:18 | CONS ---
Date/Time of Note Date/Time of Note DATE: 07/05/16 TIME: 17:17 Assessment/Plan Assessment/Plan Chief Complaint/Hosp Course ESRD HTN PNEUMONIA better PLEURAL EFFUSION s/p vats hyperkalemia HX TB GOLD TEST + PLAN PER CARDIO NON COMPLIANCE W HD hd refused hd 3 x wk HD T/THURSDAY PT REFUSED HD ON THURSDAY per pcp fluid res bp meds PER SURGERY Problems: Consultation Date/Type/Reason Admit Date/Time Jun 13, 2016 at 14:48 Type of Consultation: RENAL Referring Provider: EVA COX MD 24 HR Interval Summary Constitutional: requiring O2 Exam/Review of Systems Vital Signs Vitals Vital Signs Date Time Temp Pulse Resp B/P Pulse Ox O2 Delivery O2 Flow Rate FiO2 07/05/16 16:59 73 07/05/16 15:56 98.4 18 137/87 98 07/05/16 08:00 Nasal Cannula 3.0 Intake and Output 07/04/16 07/04/16 07/05/16 15:00 23:00 07:00 Intake Total 480 ml Output Total 880 ml 500 ml Balance -880 ml -20 ml Exam Neck: supple Respiratory: clear to auscultation Cardiovascular: regular rate and rhythm Gastrointestinal: soft Musculoskeletal: nl extremities to inspection Results Result Diagram: 07/05/16 0643 07/05/16 0643 Results 24 hrs Laboratory Tests Test 07/04/16 20:34 07/05/16 01:00 07/05/16 06:43 07/05/16 07:48 Bedside Glucose 213 229 H 297 H Anion Gap 15 Basophils # 0.0 Basophils % 0.5 Blood Urea Nitrogen 76 H Calcium Level 8.8 Carbon Dioxide Level 29 Chloride Level 90 L Creatinine 9.22 H Eosinophils # 0.2 Eosinophils % 2.7 Glucose Level 291 #H Hematocrit 23.9 L Hemoglobin 7.9 L Lymphocytes # 0.7 L Lymphocytes % 11.0 L Magnesium Level 2.6 H Mean Corpuscular Hemoglobin 32.9 Mean Corpuscular Hemoglobin Concent 33.1 Mean Corpuscular Volume 99.6 Mean Platelet Volume 10.2 Monocytes # 0.9 Monocytes % 13.7 H Neutrophils # 4.5 Neutrophils % 71.5 Nucleated Red Blood Cells # 0.0 Nucleated Red Blood Cells % 0.0 Phosphorus Level 5.2 H Platelet Count 244 Potassium Level 3.9 Red Blood Count 2.40 L Red Cell Distribution Width 13.1 Sodium Level 130 L White Blood Count 6.3 # Test 07/05/16 11:40 Bedside Glucose 352 H Medications Medications Current Medications IV Flush (NS 10 ml) 10 ml PRN PRN IV FLUSH LINE; Start 06/13/16 at 19:00 Aspirin (Halfprin) 81 mg DAILY PO Last administered on 07/05/16 08:11; Admin Dose 81 MG; Start 06/14/16 at 09:00 Atorvastatin Calcium (Lipitor) 10 mg QHS PO Last administered on 07/04/16 20:36 ; Admin Dose 10 MG; Start 06/14/16 at 21:00 Cholecalciferol (Vitamin D) 400 units DAILY PO Last administered on 07/05/16 08 :11; Admin Dose 400 UNITS; Start 06/14/16 at 09:00 Ferrous Sulfate (Ferrous Sulfate (Ec)) 325 mg BID PO Last administered on 08:11; Admin Dose 325 MG; Start 06/14/16 at 09:00 Acetaminophen (Tylenol Tab) 500 mg Q4H PRN PO PAIN AND OR ELEVATED TEMP Last administered on 07/05/16 05:49; Admin Dose 500 MG; Start 06/14/16 at 00:00 Heparin Sodium (Porcine) (Heparin (5000 Units/0.5 ml)) 5,000 unit BID SC Last administered on 07/05/16 08:10; Admin Dose 5,000 UNIT; Start 06/14/16 at 09:00 Miscellaneous Information 1 ea NOTE XX Last administered on 06/18/16 07:57; Admin Dose 1 EA; Start 06/14/16 at 00:30 Glucose (Glutose) 15 gm Q15M PRN PO DECREASED GLUCOSE; Start 06/14/16 at 00:30 Glucose (Glutose) 22.5 gm Q15M PRN PO DECREASED GLUCOSE; Start 06/14/16 at 00: 30 Dextrose (D50w Syringe) 25 ml Q15M PRN IV DECREASED GLUCOSE; Start 06/14/16 at 00:30 Dextrose (D50w Syringe) 50 ml Q15M PRN IV DECREASED GLUCOSE; Start 06/14/16 at 00:30 Glucagon (Glucagen) 1 mg Q15M PRN IM DECREASED GLUCOSE; Start 06/14/16 at 00:30 Glucose (Glutose) 15 gm Q15M PRN BUCCAL DECREASED GLUCOSE; Start 06/14/16 at 00 :30 Diagnostic Test (Pha) (Accucheck) 1 ea 02 XX Last administered on 07/04/16 02: 42; Admin Dose 1 EA; Start 06/14/16 at 02:00 Amlodipine Besylate (Norvasc) 5 mg BID PO Last administered on 07/04/16 20:37; Admin Dose 5 MG; Start 06/14/16 at 13:30 Clonidine (Catapres) 0.2 mg Q8 PRN PO Systolic >160 Last administered on 02:29; Admin Dose 0.2 MG; Start 06/14/16 at 13:00 Promethazine HCl/ Codeine (Phenergan/ Codeine) 5 ml Q4H PRN PO COUGH Last administered on 06/21/16 18:04; Admin Dose 5 ML; Start 06/15/16 at 00:00 Insulin Glargine (Lantus) 14 unit QHS SC Last administered on 06/23/16 20:31; Admin Dose 14 UNIT; Start 06/15/16 at 21:00; Status Future Hold Pantoprazole (Protonix Tab) 40 mg DAILY@06 PO Last administered on 07/05/16 05: 49; Admin Dose 40 MG; Start 06/16/16 at 06:00 Diphenhydramine HCl (Benadryl) 25 mg HS PRN PO INSOMNIA Last administered on 00:54; Admin Dose 25 MG; Start 06/15/16 at 21:30 Hydralazine HCl (Apresoline) 100 mg Q8 PO Last administered on 07/05/16 05:48; Admin Dose 100 MG; Start 06/19/16 at 13:00 Bisacodyl (Dulcolax) 10 mg DAILY PRN PO CONSTIPATION Last administered on 16:40; Admin Dose 10 MG; Start 06/22/16 at 11:30 Benazepril HCl (Lotensin) 40 mg BID PO Last administered on 07/04/16 20:36; Admin Dose 40 MG; Start 06/23/16 at 21:00 Metoprolol Tartrate (Lopressor) 50 mg BID PO Last administered on 07/04/16 20: 36; Admin Dose 50 MG; Start 06/26/16 at 09:00 Hydralazine HCl (Apresoline) 20 mg Q4H PRN IV for SBP more than 170; Start at 05:00 Ondansetron HCl (Zofran Inj) 4 mg Q6H PRN IV NAUSEA AND/OR VOMITING Last administered on 07/03/16 14:45; Admin Dose 4 MG; Start 06/28/16 at 05:00 Lorazepam (Ativan) 1 mg Q6H PRN IV ANXIETY Last administered on 07/02/16 01:46 ; Admin Dose 1 MG; Start 06/28/16 at 05:00 Clonidine (Catapres) 0.1 mg QID PO Last administered on 07/04/16 20:37; Admin Dose 0.1 MG; Start 06/28/16 at 13:00 Hydromorphone HCl (Dilaudid) 0.5 mg Q4H PRN IV PAIN Last administered on 11:05; Admin Dose 0.5 MG; Start 07/01/16 at 01:30 Hydromorphone HCl (Dilaudid) 1 mg Q3 PRN IV PAIN Last administered on 07/05/16 16:18; Admin Dose 1 MG; Start 07/01/16 at 14:00 Cyclobenzaprine HCl (Flexeril) 10 mg TID PO Last administered on 07/05/16 08:11 ; Admin Dose 10 MG; Start 07/03/16 at 21:00 Clopidogrel Bisulfate (plaVIX) 75 mg DAILY PO Last administered on 07/05/16 16: 17; Admin Dose 75 MG; Start 07/05/16 at 15:00 PAOLA MOODY MD Jul 05, 2016 17:18
--- NOTE | 2016-07-05 17:18 | CONS ---
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 Biopsy was negative for fungal stain and AFB stain (micro lab and pathology department), as well as malignancy. 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 Per Pt, his past PPD was done in 2013, and was negative. - high risk for TB: history (originally from [facility], spends one month of each year in [facility], last in 09/2015), medical history (DM, ESRD) - based on the above history and findings, a risk of tuberculosis is high - DM - ESRD on HD - CAD s/p CABG in 2010 and cardiac stent in 2013 recommendations - place Pt on negative pressure room and start collecting sputum for AFB smear and culture x3; RT to induce and send one sputum tonight, 2nd sputum in early AM , and 3rd sputum tomorrow afternoon as d/w DOUGLAS Salinas - I requested mycobacterium tuberculosis DNR probe (PCR) to the 1st sputum sample - I recommend sending more pleural fluid for mycobacterium tuberculosis DNR probe (PCR) - HIV screen - Pt is at a high risk for TB, and may benefit from empiric anti-TB treatment even if the biopsy was negative for AFB. But first, sputum for AFB smear and culture x3 must be done. - management d/w Pt, Pt's and Pt's nurse - Above d/w Dr. Verduzco Problems: Consultation Date/Type/Reason Admit Date/Time Jun 13, 2016 at 14:48 Initial Consult Date 07/04/16 Type of Consultation: Infectious Disease Referring Provider: EVA COX MD 24 HR Interval Summary Free Text/Dictation Pt c/o discomfort related to chest tube with generalized weakness per pt's . Denies fever, chills, cough, SOB, abd pain, n/v/d, dysuria. Unable to collect sputum cx today and specimen sent yesterday was not "adequate " per RN Brad. Exam/Review of Systems Vital Signs Vitals Vital Signs Date Time Temp Pulse Resp B/P Pulse Ox O2 Delivery O2 Flow Rate FiO2 07/05/16 16:59 73 07/05/16 15:56 98.4 18 137/87 98 07/05/16 08:00 Nasal Cannula 3.0 Intake and Output 07/04/16 07/04/16 07/05/16 15:00 23:00 07:00 Intake Total 480 ml Output Total 880 ml 500 ml Balance -880 ml -20 ml Exam Constitutional: alert, frail (somewhat frail appearing), oriented, well developed Psych: nl mood/affect Head: atraumatic, normocephalic Neck: supple Respiratory: clear to auscultation (anteriorly), diminished breath sounds (RLL) , other (Right sided chest tube intact without leak with serous drainage) Cardiovascular: nl pulses, regular rate and rhythm Gastrointestinal: non-tender, soft Genitourinary - Male: other (Jonas catheter intact with clear yellow urine) Extremities: other (RUE AVF with good bruit and thrill), No clubbing, No cyanosis 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, nl mental status, nl speech Skin: nl turgor, No rash or lesions Results Result Diagram: 07/05/16 0643 07/05/16 0643 Results 24 hrs Laboratory Tests Test 07/04/16 20:34 07/05/16 01:00 07/05/16 06:43 07/05/16 07:48 Bedside Glucose 213 229 H 297 H Anion Gap 15 Basophils # 0.0 Basophils % 0.5 Blood Urea Nitrogen 76 H Calcium Level 8.8 Carbon Dioxide Level 29 Chloride Level 90 L Creatinine 9.22 H Eosinophils # 0.2 Eosinophils % 2.7 Glucose Level 291 #H Hematocrit 23.9 L Hemoglobin 7.9 L Lymphocytes # 0.7 L Lymphocytes % 11.0 L Magnesium Level 2.6 H Mean Corpuscular Hemoglobin 32.9 Mean Corpuscular Hemoglobin Concent 33.1 Mean Corpuscular Volume 99.6 Mean Platelet Volume 10.2 Monocytes # 0.9 Monocytes % 13.7 H Neutrophils # 4.5 Neutrophils % 71.5 Nucleated Red Blood Cells # 0.0 Nucleated Red Blood Cells % 0.0 Phosphorus Level 5.2 H Platelet Count 244 Potassium Level 3.9 Red Blood Count 2.40 L Red Cell Distribution Width 13.1 Sodium Level 130 L White Blood Count 6.3 # Test 07/05/16 11:40 Bedside Glucose 352 H Medications Medications Current Medications IV Flush (NS 10 ml) 10 ml PRN PRN IV FLUSH LINE; Start 06/13/16 at 19:00 Aspirin (Halfprin) 81 mg DAILY PO Last administered on 07/05/16 08:11; Admin Dose 81 MG; Start 06/14/16 at 09:00 Atorvastatin Calcium (Lipitor) 10 mg QHS PO Last administered on 07/04/16 20:36 ; Admin Dose 10 MG; Start 06/14/16 at 21:00 Cholecalciferol (Vitamin D) 400 units DAILY PO Last administered on 07/05/16 08 :11; Admin Dose 400 UNITS; Start 06/14/16 at 09:00 Ferrous Sulfate (Ferrous Sulfate (Ec)) 325 mg BID PO Last administered on 08:11; Admin Dose 325 MG; Start 06/14/16 at 09:00 Acetaminophen (Tylenol Tab) 500 mg Q4H PRN PO PAIN AND OR ELEVATED TEMP Last administered on 07/05/16 05:49; Admin Dose 500 MG; Start 06/14/16 at 00:00 Heparin Sodium (Porcine) (Heparin (5000 Units/0.5 ml)) 5,000 unit BID SC Last administered on 07/05/16 08:10; Admin Dose 5,000 UNIT; Start 06/14/16 at 09:00 Miscellaneous Information 1 ea NOTE XX Last administered on 06/18/16 07:57; Admin Dose 1 EA; Start 06/14/16 at 00:30 Glucose (Glutose) 15 gm Q15M PRN PO DECREASED GLUCOSE; Start 06/14/16 at 00:30 Glucose (Glutose) 22.5 gm Q15M PRN PO DECREASED GLUCOSE; Start 06/14/16 at 00: 30 Dextrose (D50w Syringe) 25 ml Q15M PRN IV DECREASED GLUCOSE; Start 06/14/16 at 00:30 Dextrose (D50w Syringe) 50 ml Q15M PRN IV DECREASED GLUCOSE; Start 06/14/16 at 00:30 Glucagon (Glucagen) 1 mg Q15M PRN IM DECREASED GLUCOSE; Start 06/14/16 at 00:30 Glucose (Glutose) 15 gm Q15M PRN BUCCAL DECREASED GLUCOSE; Start 06/14/16 at 00 :30 Diagnostic Test (Pha) (Accucheck) 1 ea 02 XX Last administered on 07/04/16 02: 42; Admin Dose 1 EA; Start 06/14/16 at 02:00 Amlodipine Besylate (Norvasc) 5 mg BID PO Last administered on 07/04/16 20:37; Admin Dose 5 MG; Start 06/14/16 at 13:30 Clonidine (Catapres) 0.2 mg Q8 PRN PO Systolic >160 Last administered on 02:29; Admin Dose 0.2 MG; Start 06/14/16 at 13:00 Promethazine HCl/ Codeine (Phenergan/ Codeine) 5 ml Q4H PRN PO COUGH Last administered on 06/21/16 18:04; Admin Dose 5 ML; Start 06/15/16 at 00:00 Insulin Glargine (Lantus) 14 unit QHS SC Last administered on 06/23/16 20:31; Admin Dose 14 UNIT; Start 06/15/16 at 21:00; Status Future Hold Pantoprazole (Protonix Tab) 40 mg DAILY@06 PO Last administered on 07/05/16 05: 49; Admin Dose 40 MG; Start 06/16/16 at 06:00 Diphenhydramine HCl (Benadryl) 25 mg HS PRN PO INSOMNIA Last administered on 00:54; Admin Dose 25 MG; Start 06/15/16 at 21:30 Hydralazine HCl (Apresoline) 100 mg Q8 PO Last administered on 07/05/16 05:48; Admin Dose 100 MG; Start 06/19/16 at 13:00 Bisacodyl (Dulcolax) 10 mg DAILY PRN PO CONSTIPATION Last administered on 16:40; Admin Dose 10 MG; Start 06/22/16 at 11:30 Benazepril HCl (Lotensin) 40 mg BID PO Last administered on 07/04/16 20:36; Admin Dose 40 MG; Start 06/23/16 at 21:00 Metoprolol Tartrate (Lopressor) 50 mg BID PO Last administered on 07/04/16 20: 36; Admin Dose 50 MG; Start 06/26/16 at 09:00 Hydralazine HCl (Apresoline) 20 mg Q4H PRN IV for SBP more than 170; Start at 05:00 Ondansetron HCl (Zofran Inj) 4 mg Q6H PRN IV NAUSEA AND/OR VOMITING Last administered on 07/03/16 14:45; Admin Dose 4 MG; Start 06/28/16 at 05:00 Lorazepam (Ativan) 1 mg Q6H PRN IV ANXIETY Last administered on 07/02/16 01:46 ; Admin Dose 1 MG; Start 06/28/16 at 05:00 Clonidine (Catapres) 0.1 mg QID PO Last administered on 07/04/16 20:37; Admin Dose 0.1 MG; Start 06/28/16 at 13:00 Hydromorphone HCl (Dilaudid) 0.5 mg Q4H PRN IV PAIN Last administered on 11:05; Admin Dose 0.5 MG; Start 07/01/16 at 01:30 Hydromorphone HCl (Dilaudid) 1 mg Q3 PRN IV PAIN Last administered on 07/05/16 16:18; Admin Dose 1 MG; Start 07/01/16 at 14:00 Cyclobenzaprine HCl (Flexeril) 10 mg TID PO Last administered on 07/05/16 08:11 ; Admin Dose 10 MG; Start 07/03/16 at 21:00 Clopidogrel Bisulfate (plaVIX) 75 mg DAILY PO Last administered on 07/05/16 16: 17; Admin Dose 75 MG; Start 07/05/16 at 15:00 Procedures Procedures CXR 07/05/16: 1. Slightly worse appearance of the right lung base. 2. No other change from 07/03/2016. YUMIKO VERDUZCO M.D. 07/07/16 1038: Assessment/Plan Assessment/Plan Additional Assessment/Plan Dax attestation: I discussed the management with ISABEL Jorgensen and agree with above. correction: DNA probe, not DNR probe (typographical mistake) Exam/Review of Systems Results Result Diagram: 07/05/16 0643 07/05/16 0643 NORI JORGENSEN NP Jul 05, 2016 17:18 YUMIKO VERDUZCO M.D. Jul 07, 2016 10:38
[2016-07-05] MEDS ORDERED: NACL 3% FOR INHALATION 15 ML NEBU NEB ONE ×4 (17:30→19:00)
[2016-07-05] MEDS: ATORVASTATIN 10 MG TAB PO SCH (20:41)
[2016-07-05] MEDS: LEVALBUTEROL (HFA) 15 GM INHALER INH SCH ×3 (22:26→22:27)
[2016-07-05] MEDS: BISACODYL (EC) 5 MG TAB PO PRN (22:38)
[2016-07-06] VITALS (12 sets, daily range): BP systolic 127–161; BP diastolic 47–79; PULSE 69; RESP 16–20
[2016-07-06] MEDS: LEVALBUTEROL (HFA) 15 GM INHALER INH SCH ×2 (01:36→08:00)
[2016-07-06] MEDS: ACCU-CHEK XX SCH ×5 (02:13→21:00)
[2016-07-06] MEDS: PANTOPRAZOLE (EC) 40 MG TAB PO SCH (05:07)
[2016-07-06 07:34] LABS: ADD SCAN DIFF NO
[2016-07-06 07:43] LABS: BASOPHIL # 0.1 10^3/ul (0.0-0.1); BASOPHILS % 0.7 % (0.0-2.0); EOSINOPHILS # 0.2 10^3/ul (0.0-0.5); EOSINOPHILS % 2.8 % (0.0-7.0); HEMATOCRIT 24.1 % (42.0-52.0); HEMOGLOBIN 7.9 g/dl (14.0-18.0); LYMPHOCYTES # 0.7 10^3/ul (0.8-2.9); LYMPHOCYTES % 10.2 % (15.0-51.0); MEAN CORPUSCULAR HEMOGLOBIN 33.1 pg (29.0-33.0); MEAN CORPUSCULAR HGB CONC 32.8 g/dl (32.0-37.0); MEAN CORPUSCULAR VOLUME 100.8 fl (82.0-101.0); MEAN PLATELET VOLUME 9.9 fl (7.4-10.4); MONOCYTE # 0.8 10^3/ul (0.3-0.9); MONOCYTES % 12.4 % (0.0-11.0); NEUTROPHIL # 4.9 10^3/ul (1.6-7.5); NEUTROPHILS % 73.5 % (39.0-77.0); PLATELET COUNT 236 10^3/UL (140-415); RED BLOOD COUNT 2.39 10^6/ul (4.70-6.10); RED CELL DISTRIBUTION WIDTH 12.8 % (11.5-14.5); WHITE BLOOD COUNT 6.7 10^3/ul (4.8-10.8)
[2016-07-06 08:21] LABS: POTASSIUM 4.5 mmol/L (3.5-5.1)
[2016-07-06 08:24] LABS: CREATININE 6.09 mg/dl (0.61-1.24)
[2016-07-06 08:25] LABS: CALCIUM 9.1 mg/dl (8.4-10.2)
[2016-07-06] MEDS: FERROUS SULFATE (EC) 325 MG TAB PO SCH ×2 (08:36→20:29)
[2016-07-06] MEDS: METOPROLOL 25 MG TAB PO SCH ×2 (08:36→20:30)
[2016-07-06] MEDS: CALCIUM ACETATE 667 MG CAP PO SCH ×3 (08:36→17:44)
[2016-07-06] MEDS: SEVELAMER CARBONATE 0.8 GM PKT PO SCH ×3 (08:36→17:44)
[2016-07-06] MEDS: BENAZEPRIL 40 MG TAB PO SCH ×2 (08:37→20:28)
[2016-07-06] MEDS: CHOLECALCIFEROL 400 UNITS TAB PO SCH (08:37)
[2016-07-06] MEDS: AMLODIPINE 5 MG TAB PO SCH ×2 (08:37→20:28)
[2016-07-06] MEDS: CYCLOBENZAPRINE 10 MG TAB PO SCH ×3 (08:37→20:28)
[2016-07-06] MEDS: ASPIRIN (EC) 81 MG TAB PO SCH (08:37)
[2016-07-06] MEDS: CLOPIDOGREL 75 MG TAB PO SCH (08:37)
[2016-07-06] MEDS: INSULIN ASPART [NOVOLOG] 3 ML PEN SC SCH ×4 (08:39→20:43)
[2016-07-06] MEDS: HEPARIN 5,000 UNIT/0.5 ML SYG SC SCH ×3 (08:39→20:39)
--- NOTE | 2016-07-06 11:49 | PN ---
Date/Time of Note Date/Time of Note DATE: 07/06/16 TIME: 11:48 Assessment/Plan Lines/Catheters IV Catheter Type (from Nrsg): PICC Line Jonas in Place (from Nrsg): No Assessment/Plan Chief Complaint/Hosp Course IMPRESSION: Bilateral pleural effusions status post thoracentesis with much improvement. SP VATS Decortication CT [address] sxn Problems: Subjective 24 Hr Interval Summary Constitutional: improved Pain Control: mild Exam/Review of Systems Vital Signs Vitals Vital Signs Date Time Temp Pulse Resp B/P Pulse Ox O2 Delivery O2 Flow Rate FiO2 07/06/16 08:33 98.5 74 19 136/79 97 07/06/16 07:49 Nasal Cannula 3.0 07/05/16 21:48 21 Intake and Output 07/05/16 07/05/16 07/06/16 15:00 23:00 07:00 Intake Total 200 ml 690 ml 250 ml Output Total 2200 ml 200 ml 300 ml Balance -2000 ml 490 ml -50 ml Exam Neck: non-tender, supple Respiratory: clear to auscultation, normal air movement Cardiovascular: nl pulses, regular rate and rhythm Results Result Diagram: 07/06/16 0535 07/06/16 0535 LILIA FELIZ MD Jul 06, 2016 11:48
--- NOTE | 2016-07-06 12:53 | PN ---
Date/Time of Note Date/Time of Note DATE: 07/06/16 TIME: 12:52 Assessment/Plan VTE Prophylaxis VTE Prophylaxis Intervention: other Lines/Catheters [facility] P[facility] Line Central line still needed: Yes Urinary Cath still in place: No Assessment/Plan Chief Complaint/Hosp Course - Right pleural effusion, status post thoracentesis. Dr. Dale is following in pulmonology consultation. - End-stage renal disease, continue hemodialysis. Dr. Saunders is following in nephrology consultation. - Diabetes mellitus type 2, continue Lantus and NovoLog - Hypertension. Dr. De Santiago is following and cardiology consultation. - Coronary artery disease, status post coronary artery bypass graft. Continue aspirin and Plavix. - Permanent pacemaker. No acute issues. - Dyslipidemia. Continue Lipitor. Continue heparin for deep venous thrombosis prophylaxis and Protonix for peptic ulcer disease prophylaxis. Problems: Subjective 24 Hr Interval Summary Free Text/Dictation Patient is resting comfortably, has no complaints Exam/Review of Systems Vital Signs Vitals Vital Signs Date Time Temp Pulse Resp B/P Pulse Ox O2 Delivery O2 Flow Rate FiO2 07/06/16 12:41 69 07/06/16 12:21 97.6 17 151/59 94 07/06/16 07:49 Nasal Cannula 3.0 07/05/16 21:48 21 Intake and Output 07/05/16 07/05/16 07/06/16 15:00 23:00 07:00 Intake Total 200 ml 690 ml 250 ml Output Total 2200 ml 200 ml 300 ml Balance -2000 ml 490 ml -50 ml Exam Constitutional: well developed Head: atraumatic, normocephalic Neck: supple Respiratory: diminished breath sounds Cardiovascular: regular rate and rhythm Gastrointestinal: non-tender, soft Results Result Diagram: 07/06/16 0535 07/06/16 0535 Results 24 hrs Laboratory Tests Test 07/05/16 17:25 07/05/16 20:39 07/06/16 02:01 07/06/16 05:35 Bedside Glucose 216 233 H 95 Anion Gap 15 Basophils # 0.1 Basophils % 0.7 Blood Urea Nitrogen 42 #H Calcium Level 9.1 Carbon Dioxide Level 29 Chloride Level 97 Creatinine 6.09 #H Eosinophils # 0.2 Eosinophils % 2.8 Glucose Level 132 # Hematocrit 24.1 L Hemoglobin 7.9 L Lymphocytes # 0.7 L Lymphocytes % 10.2 L Mean Corpuscular Hemoglobin 33.1 H Mean Corpuscular Hemoglobin Concent 32.8 Mean Corpuscular Volume 100.8 Mean Platelet Volume 9.9 Monocytes # 0.8 Monocytes % 12.4 H Neutrophils # 4.9 Neutrophils % 73.5 Nucleated Red Blood Cells # 0.0 Nucleated Red Blood Cells % 0.0 Platelet Count 236 Potassium Level 4.5 Red Blood Count 2.39 L Red Cell Distribution Width 12.8 Sodium Level 136 White Blood Count 6.7 Test 07/06/16 07:11 07/06/16 11:54 Bedside Glucose 153 339 H Medications Medications Current Medications IV Flush (NS 10 ml) 10 ml PRN PRN IV FLUSH LINE; Start 06/13/16 at 19:00 Aspirin (Halfprin) 81 mg DAILY PO Last administered on 07/06/16 08:37; Admin Dose 81 MG; Start 06/14/16 at 09:00 Atorvastatin Calcium (Lipitor) 10 mg QHS PO Last administered on 07/05/16 20:41 ; Admin Dose 10 MG; Start 06/14/16 at 21:00 Cholecalciferol (Vitamin D) 400 units DAILY PO Last administered on 07/06/16 08 :37; Admin Dose 400 UNITS; Start 06/14/16 at 09:00 Ferrous Sulfate (Ferrous Sulfate (Ec)) 325 mg BID PO Last administered on 08:36; Admin Dose 325 MG; Start 06/14/16 at 09:00 Acetaminophen (Tylenol Tab) 500 mg Q4H PRN PO PAIN AND OR ELEVATED TEMP Last administered on 07/05/16 05:49; Admin Dose 500 MG; Start 06/14/16 at 00:00 Heparin Sodium (Porcine) (Heparin (5000 Units/0.5 ml)) 5,000 unit BID SC Last administered on 07/05/16 08:10; Admin Dose 5,000 UNIT; Start 06/14/16 at 09:00 Miscellaneous Information 1 ea NOTE XX Last administered on 06/18/16 07:57; Admin Dose 1 EA; Start 06/14/16 at 00:30 Glucose (Glutose) 15 gm Q15M PRN PO DECREASED GLUCOSE; Start 06/14/16 at 00:30 Glucose (Glutose) 22.5 gm Q15M PRN PO DECREASED GLUCOSE; Start 06/14/16 at 00: 30 Dextrose (D50w Syringe) 25 ml Q15M PRN IV DECREASED GLUCOSE; Start 06/14/16 at 00:30 Dextrose (D50w Syringe) 50 ml Q15M PRN IV DECREASED GLUCOSE; Start 06/14/16 at 00:30 Glucagon (Glucagen) 1 mg Q15M PRN IM DECREASED GLUCOSE; Start 06/14/16 at 00:30 Glucose (Glutose) 15 gm Q15M PRN BUCCAL DECREASED GLUCOSE; Start 06/14/16 at 00 :30 Diagnostic Test (Pha) (Accucheck) 1 ea 02 XX Last administered on 07/06/16 02: 13; Admin Dose 1 EA; Start 06/14/16 at 02:00 Amlodipine Besylate (Norvasc) 5 mg BID PO Last administered on 07/06/16 08:37; Admin Dose 5 MG; Start 06/14/16 at 13:30 Clonidine (Catapres) 0.2 mg Q8 PRN PO Systolic >160 Last administered on 02:29; Admin Dose 0.2 MG; Start 06/14/16 at 13:00 Promethazine HCl/ Codeine (Phenergan/ Codeine) 5 ml Q4H PRN PO COUGH Last administered on 06/21/16 18:04; Admin Dose 5 ML; Start 06/15/16 at 00:00 Insulin Glargine (Lantus) 14 unit QHS SC Last administered on 06/23/16 20:31; Admin Dose 14 UNIT; Start 06/15/16 at 21:00; Status Future Hold Pantoprazole (Protonix Tab) 40 mg DAILY@06 PO Last administered on 07/06/16 05: 07; Admin Dose 40 MG; Start 06/16/16 at 06:00 Diphenhydramine HCl (Benadryl) 25 mg HS PRN PO INSOMNIA Last administered on 00:54; Admin Dose 25 MG; Start 06/15/16 at 21:30 Hydralazine HCl (Apresoline) 100 mg Q8 PO Last administered on 07/06/16 05:08; Admin Dose 100 MG; Start 06/19/16 at 13:00 Bisacodyl (Dulcolax) 10 mg DAILY PRN PO CONSTIPATION Last administered on 22:38; Admin Dose 10 MG; Start 06/22/16 at 11:30 Benazepril HCl (Lotensin) 40 mg BID PO Last administered on 07/06/16 08:37; Admin Dose 40 MG; Start 06/23/16 at 21:00 Metoprolol Tartrate (Lopressor) 50 mg BID PO Last administered on 07/06/16 08: 36; Admin Dose 50 MG; Start 06/26/16 at 09:00 Hydralazine HCl (Apresoline) 20 mg Q4H PRN IV for SBP more than 170; Start at 05:00 Ondansetron HCl (Zofran Inj) 4 mg Q6H PRN IV NAUSEA AND/OR VOMITING Last administered on 07/03/16 14:45; Admin Dose 4 MG; Start 06/28/16 at 05:00 Lorazepam (Ativan) 1 mg Q6H PRN IV ANXIETY Last administered on 07/02/16 01:46 ; Admin Dose 1 MG; Start 06/28/16 at 05:00 Clonidine (Catapres) 0.1 mg QID PO Last administered on 07/06/16 08:38; Admin Dose 0.1 MG; Start 06/28/16 at 13:00 Hydromorphone HCl (Dilaudid) 0.5 mg Q4H PRN IV PAIN Last administered on 11:05; Admin Dose 0.5 MG; Start 07/01/16 at 01:30 Hydromorphone HCl (Dilaudid) 1 mg Q3 PRN IV PAIN Last administered on 07/05/16 16:18; Admin Dose 1 MG; Start 07/01/16 at 14:00 Cyclobenzaprine HCl (Flexeril) 10 mg TID PO Last administered on 07/06/16 08:37 ; Admin Dose 10 MG; Start 07/03/16 at 21:00 Clopidogrel Bisulfate (plaVIX) 75 mg DAILY PO Last administered on 07/06/16 08: 37; Admin Dose 75 MG; Start 07/05/16 at 15:00 HELEN SHARP 5, 2017 12:53
--- NOTE | 2016-07-06 14:41 | CONS ---
Date/Time of Note Date/Time of Note DATE: 07/06/16 TIME: 14:39 Consult Date/Type/Reason Admit Date/Time Jun 13, 2016 at 14:48 Type of Consultation: Pulm Ordering Provider: EVA COX MD Subjective No events. Objective Vital Signs Date Time Temp Pulse Resp B/P Pulse Ox O2 Delivery O2 Flow Rate FiO2 07/06/16 12:41 69 07/06/16 12:21 97.6 17 151/59 94 07/06/16 07:49 Nasal Cannula 3.0 07/05/16 21:48 21 Intake and Output 07/05/16 07/05/16 07/06/16 15:00 23:00 07:00 Intake Total 200 ml 690 ml 250 ml Output Total 2200 ml 200 ml 300 ml Balance -2000 ml 490 ml -50 ml HEENT: Normocephalic, atraumatic. NECK: Supple. Jugular venous pressures are elevated. CARDIOVASCULAR: Regular rate and rhythm, S1 and S2, II/ systolic murmur. CHEST: There are decreased breath sounds at the right base greater than left base, otherwise clear. ABDOMEN: Soft, nontender, no hepatosplenomegaly. EXTREMITIES: There is trace lower extremity edema. Results/Medications Result Diagram: 07/06/16 0535 07/06/16 0535 Results 24 hrs Laboratory Tests Test 07/05/16 17:25 07/05/16 20:39 07/06/16 02:01 07/06/16 05:35 Bedside Glucose 216 233 H 95 Anion Gap 15 Basophils # 0.1 Basophils % 0.7 Blood Urea Nitrogen 42 #H Calcium Level 9.1 Carbon Dioxide Level 29 Chloride Level 97 Creatinine 6.09 #H Eosinophils # 0.2 Eosinophils % 2.8 Glucose Level 132 # Hematocrit 24.1 L Hemoglobin 7.9 L Lymphocytes # 0.7 L Lymphocytes % 10.2 L Mean Corpuscular Hemoglobin 33.1 H Mean Corpuscular Hemoglobin Concent 32.8 Mean Corpuscular Volume 100.8 Mean Platelet Volume 9.9 Monocytes # 0.8 Monocytes % 12.4 H Neutrophils # 4.9 Neutrophils % 73.5 Nucleated Red Blood Cells # 0.0 Nucleated Red Blood Cells % 0.0 Platelet Count 236 Potassium Level 4.5 Red Blood Count 2.39 L Red Cell Distribution Width 12.8 Sodium Level 136 White Blood Count 6.7 Test 3/5/17 07:11 07/06/16 11:54 Bedside Glucose 153 339 H Medications Current Medications IV Flush (NS 10 ml) 10 ml PRN PRN IV FLUSH LINE; Start 06/13/16 at 19:00 Aspirin (Halfprin) 81 mg DAILY PO Last administered on 07/06/16 08:37; Admin Dose 81 MG; Start 06/14/16 at 09:00 Atorvastatin Calcium (Lipitor) 10 mg QHS PO Last administered on 07/05/16 20:41 ; Admin Dose 10 MG; Start 06/14/16 at 21:00 Cholecalciferol (Vitamin D) 400 units DAILY PO Last administered on 07/06/16 08 :37; Admin Dose 400 UNITS; Start 06/14/16 at 09:00 Ferrous Sulfate (Ferrous Sulfate (Ec)) 325 mg BID PO Last administered on 08:36; Admin Dose 325 MG; Start 06/14/16 at 09:00 Acetaminophen (Tylenol Tab) 500 mg Q4H PRN PO PAIN AND OR ELEVATED TEMP Last administered on 07/05/16 05:49; Admin Dose 500 MG; Start 06/14/16 at 00:00 Heparin Sodium (Porcine) (Heparin (5000 Units/0.5 ml)) 5,000 unit BID SC Last administered on 07/05/16 08:10; Admin Dose 5,000 UNIT; Start 06/14/16 at 09:00 Miscellaneous Information 1 ea NOTE XX Last administered on 06/18/16 07:57; Admin Dose 1 EA; Start 06/14/16 at 00:30 Glucose (Glutose) 15 gm Q15M PRN PO DECREASED GLUCOSE; Start 06/14/16 at 00:30 Glucose (Glutose) 22.5 gm Q15M PRN PO DECREASED GLUCOSE; Start 06/14/16 at 00: 30 Dextrose (D50w Syringe) 25 ml Q15M PRN IV DECREASED GLUCOSE; Start 06/14/16 at 00:30 Dextrose (D50w Syringe) 50 ml Q15M PRN IV DECREASED GLUCOSE; Start 06/14/16 at 00:30 Glucagon (Glucagen) 1 mg Q15M PRN IM DECREASED GLUCOSE; Start 06/14/16 at 00:30 Glucose (Glutose) 15 gm Q15M PRN BUCCAL DECREASED GLUCOSE; Start 06/14/16 at 00 :30 Diagnostic Test (Pha) (Accucheck) 1 ea 02 XX Last administered on 07/06/16 02: 13; Admin Dose 1 EA; Start 06/14/16 at 02:00 Amlodipine Besylate (Norvasc) 5 mg BID PO Last administered on 07/06/16 08:37; Admin Dose 5 MG; Start 06/14/16 at 13:30 Clonidine (Catapres) 0.2 mg Q8 PRN PO Systolic >160 Last administered on 02:29; Admin Dose 0.2 MG; Start 06/14/16 at 13:00 Promethazine HCl/ Codeine (Phenergan/ Codeine) 5 ml Q4H PRN PO COUGH Last administered on 06/21/16 18:04; Admin Dose 5 ML; Start 06/15/16 at 00:00 Insulin Glargine (Lantus) 14 unit QHS SC Last administered on 06/23/16 20:31; Admin Dose 14 UNIT; Start 06/15/16 at 21:00; Status Future Hold Pantoprazole (Protonix Tab) 40 mg DAILY@06 PO Last administered on 07/06/16 05: 07; Admin Dose 40 MG; Start 06/16/16 at 06:00 Diphenhydramine HCl (Benadryl) 25 mg HS PRN PO INSOMNIA Last administered on 00:54; Admin Dose 25 MG; Start 06/15/16 at 21:30 Hydralazine HCl (Apresoline) 100 mg Q8 PO Last administered on 07/06/16 13:09; Admin Dose 100 MG; Start 06/19/16 at 13:00 Bisacodyl (Dulcolax) 10 mg DAILY PRN PO CONSTIPATION Last administered on 22:38; Admin Dose 10 MG; Start 06/22/16 at 11:30 Benazepril HCl (Lotensin) 40 mg BID PO Last administered on 07/06/16 08:37; Admin Dose 40 MG; Start 06/23/16 at 21:00 Metoprolol Tartrate (Lopressor) 50 mg BID PO Last administered on 07/06/16 08: 36; Admin Dose 50 MG; Start 06/26/16 at 09:00 Hydralazine HCl (Apresoline) 20 mg Q4H PRN IV for SBP more than 170; Start at 05:00 Ondansetron HCl (Zofran Inj) 4 mg Q6H PRN IV NAUSEA AND/OR VOMITING Last administered on 07/03/16 14:45; Admin Dose 4 MG; Start 06/28/16 at 05:00 Lorazepam (Ativan) 1 mg Q6H PRN IV ANXIETY Last administered on 07/02/16 01:46 ; Admin Dose 1 MG; Start 06/28/16 at 05:00 Clonidine (Catapres) 0.1 mg QID PO Last administered on 07/06/16 13:08; Admin Dose 0.1 MG; Start 06/28/16 at 13:00 Hydromorphone HCl (Dilaudid) 0.5 mg Q4H PRN IV PAIN Last administered on 11:05; Admin Dose 0.5 MG; Start 07/01/16 at 01:30 Hydromorphone HCl (Dilaudid) 1 mg Q3 PRN IV PAIN Last administered on 07/05/16 16:18; Admin Dose 1 MG; Start 07/01/16 at 14:00 Cyclobenzaprine HCl (Flexeril) 10 mg TID PO Last administered on 07/06/16 13:09 ; Admin Dose 10 MG; Start 07/03/16 at 21:00 Clopidogrel Bisulfate (plaVIX) 75 mg DAILY PO Last administered on 07/06/16 08: 37; Admin Dose 75 MG; Start 07/05/16 at 15:00 Assessment/Plan Additional Assessment/Plan IMP: 1. Pleural TB 2. CKD on HD 3. Anemia RECS: 1. RIPE/B6 2. follow-up MTB PCR 3. Periodic LFT's only if indicated by clinical findings SONYA ODEN MD Jul 06, 2016 14:41
--- NOTE | 2016-07-06 16:00 | CONS ---
Date/Time of Note Date/Time of Note DATE: 07/06/16 TIME: 15:59 Assessment/Plan Assessment/Plan Additional Assessment/Plan ASSESSMENT AND PLAN: 1. Abnormal electrocardiogram 2. CAD s/p percutaneous transluminal coronary angioplasty and stent placement in 2014 to the left main left anterior descending. 3. Hypertension 4. Dyslipidemia. 5. Pleural effusion, status post thoracentesis. 6. Diabetes mellitus. 7. End-stage renal disease, on hemodialysis. RECOMMENDATIONS: Continue on Tele Continue metoprolol Started on Plavix Continue Benazepril, Norvasc, Hydralazine Continue asa/statin Continue Insulin Continue HD as scheduled Continue GI and DVT Prophylaxis Consultation Date/Type/Reason Admit Date/Time Jun 13, 2016 at 14:48 Initial Consult Date 07/04/16 Type of Consultation: Pulm Referring Provider: EVA COX MD Exam/Review of Systems Vital Signs Vitals Vital Signs Date Time Temp Pulse Resp B/P Pulse Ox O2 Delivery O2 Flow Rate FiO2 07/06/16 15:16 2.0 07/06/16 14:30 75 20 97 Nasal Cannula 07/06/16 12:21 97.6 151/59 07/05/16 21:48 21 Intake and Output 07/05/16 07/05/16 07/06/16 15:00 23:00 07:00 Intake Total 200 ml 690 ml 250 ml Output Total 2200 ml 200 ml 300 ml Balance -2000 ml 490 ml -50 ml Exam Constitutional: alert Head: atraumatic, normocephalic Neck: non-tender, supple Respiratory: clear to auscultation, other (Chest Tube in palce) Cardiovascular: regular rate and rhythm Gastrointestinal: nl liver, spleen, non-tender, soft Extremities: normal pulses Results Result Diagram: 07/06/16 0535 07/06/16 0535 Results 24 hrs Laboratory Tests Test 07/05/16 17:25 07/05/16 20:39 07/06/16 02:01 07/06/16 05:35 Bedside Glucose 216 233 H 95 Anion Gap 15 Basophils # 0.1 Basophils % 0.7 Blood Urea Nitrogen 42 #H Calcium Level 9.1 Carbon Dioxide Level 29 Chloride Level 97 Creatinine 6.09 #H Eosinophils # 0.2 Eosinophils % 2.8 Glucose Level 132 # Hematocrit 24.1 L Hemoglobin 7.9 L Lymphocytes # 0.7 L Lymphocytes % 10.2 L Mean Corpuscular Hemoglobin 33.1 H Mean Corpuscular Hemoglobin Concent 32.8 Mean Corpuscular Volume 100.8 Mean Platelet Volume 9.9 Monocytes # 0.8 Monocytes % 12.4 H Neutrophils # 4.9 Neutrophils % 73.5 Nucleated Red Blood Cells # 0.0 Nucleated Red Blood Cells % 0.0 Platelet Count 236 Potassium Level 4.5 Red Blood Count 2.39 L Red Cell Distribution Width 12.8 Sodium Level 136 White Blood Count 6.7 Test 07/06/16 07:11 07/06/16 11:54 Bedside Glucose 153 339 H Medications Medications Current Medications IV Flush (NS 10 ml) 10 ml PRN PRN IV FLUSH LINE; Start 06/13/16 at 19:00 Aspirin (Halfprin) 81 mg DAILY PO Last administered on 07/06/16 08:37; Admin Dose 81 MG; Start 06/14/16 at 09:00 Atorvastatin Calcium (Lipitor) 10 mg QHS PO Last administered on 07/05/16 20:41 ; Admin Dose 10 MG; Start 06/14/16 at 21:00 Cholecalciferol (Vitamin D) 400 units DAILY PO Last administered on 07/06/16 08 :37; Admin Dose 400 UNITS; Start 06/14/16 at 09:00 Ferrous Sulfate (Ferrous Sulfate (Ec)) 325 mg BID PO Last administered on 08:36; Admin Dose 325 MG; Start 06/14/16 at 09:00 Acetaminophen (Tylenol Tab) 500 mg Q4H PRN PO PAIN AND OR ELEVATED TEMP Last administered on 07/05/16 05:49; Admin Dose 500 MG; Start 06/14/16 at 00:00 Heparin Sodium (Porcine) (Heparin (5000 Units/0.5 ml)) 5,000 unit BID SC Last administered on 07/05/16 08:10; Admin Dose 5,000 UNIT; Start 06/14/16 at 09:00 Miscellaneous Information 1 ea NOTE XX Last administered on 06/18/16 07:57; Admin Dose 1 EA; Start 06/14/16 at 00:30 Glucose (Glutose) 15 gm Q15M PRN PO DECREASED GLUCOSE; Start 06/14/16 at 00:30 Glucose (Glutose) 22.5 gm Q15M PRN PO DECREASED GLUCOSE; Start 06/14/16 at 00: 30 Dextrose (D50w Syringe) 25 ml Q15M PRN IV DECREASED GLUCOSE; Start 06/14/16 at 00:30 Dextrose (D50w Syringe) 50 ml Q15M PRN IV DECREASED GLUCOSE; Start 06/14/16 at 00:30 Glucagon (Glucagen) 1 mg Q15M PRN IM DECREASED GLUCOSE; Start 06/14/16 at 00:30 Glucose (Glutose) 15 gm Q15M PRN BUCCAL DECREASED GLUCOSE; Start 06/14/16 at 00 :30 Diagnostic Test (Pha) (Accucheck) 1 ea 02 XX Last administered on 07/06/16 02: 13; Admin Dose 1 EA; Start 06/14/16 at 02:00 Amlodipine Besylate (Norvasc) 5 mg BID PO Last administered on 07/06/16 08:37; Admin Dose 5 MG; Start 06/14/16 at 13:30 Clonidine (Catapres) 0.2 mg Q8 PRN PO Systolic >160 Last administered on 02:29; Admin Dose 0.2 MG; Start 06/14/16 at 13:00 Promethazine HCl/ Codeine (Phenergan/ Codeine) 5 ml Q4H PRN PO COUGH Last administered on 06/21/16 18:04; Admin Dose 5 ML; Start 06/15/16 at 00:00 Insulin Glargine (Lantus) 14 unit QHS SC Last administered on 06/23/16 20:31; Admin Dose 14 UNIT; Start 06/15/16 at 21:00; Status Future Hold Pantoprazole (Protonix Tab) 40 mg DAILY@06 PO Last administered on 07/06/16 05: 07; Admin Dose 40 MG; Start 06/16/16 at 06:00 Diphenhydramine HCl (Benadryl) 25 mg HS PRN PO INSOMNIA Last administered on 00:54; Admin Dose 25 MG; Start 06/15/16 at 21:30 Hydralazine HCl (Apresoline) 100 mg Q8 PO Last administered on 07/06/16 13:09; Admin Dose 100 MG; Start 06/19/16 at 13:00 Bisacodyl (Dulcolax) 10 mg DAILY PRN PO CONSTIPATION Last administered on 22:38; Admin Dose 10 MG; Start 06/22/16 at 11:30 Benazepril HCl (Lotensin) 40 mg BID PO Last administered on 07/06/16 08:37; Admin Dose 40 MG; Start 06/23/16 at 21:00 Metoprolol Tartrate (Lopressor) 50 mg BID PO Last administered on 07/06/16 08: 36; Admin Dose 50 MG; Start 06/26/16 at 09:00 Hydralazine HCl (Apresoline) 20 mg Q4H PRN IV for SBP more than 170; Start at 05:00 Ondansetron HCl (Zofran Inj) 4 mg Q6H PRN IV NAUSEA AND/OR VOMITING Last administered on 07/03/16 14:45; Admin Dose 4 MG; Start 06/28/16 at 05:00 Lorazepam (Ativan) 1 mg Q6H PRN IV ANXIETY Last administered on 07/02/16 01:46 ; Admin Dose 1 MG; Start 06/28/16 at 05:00 Clonidine (Catapres) 0.1 mg QID PO Last administered on 07/06/16 13:08; Admin Dose 0.1 MG; Start 06/28/16 at 13:00 Hydromorphone HCl (Dilaudid) 0.5 mg Q4H PRN IV PAIN Last administered on 11:05; Admin Dose 0.5 MG; Start 07/01/16 at 01:30 Hydromorphone HCl (Dilaudid) 1 mg Q3 PRN IV PAIN Last administered on 07/05/16 16:18; Admin Dose 1 MG; Start 07/01/16 at 14:00 Cyclobenzaprine HCl (Flexeril) 10 mg TID PO Last administered on 07/06/16 13:09 ; Admin Dose 10 MG; Start 07/03/16 at 21:00 Clopidogrel Bisulfate (plaVIX) 75 mg DAILY PO Last administered on 07/06/16 08: 37; Admin Dose 75 MG; Start 07/05/16 at 15:00 PHILL PAGE M.D. Jul 06, 2016 15:59
--- NOTE | 2016-07-06 17:08 | CONS ---
Date/Time of Note Date/Time of Note DATE: 07/06/16 TIME: 17:07 Assessment/Plan Assessment/Plan Chief Complaint/Hosp Course ESRD HTN PNEUMONIA better PLEURAL EFFUSION s/p vats hyperkalemia HX TB GOLD TEST + PLAN PER CARDIO NON COMPLIANCE W HD hd refused hd 3 x wk HD T/THURSDAY PT REFUSED HD ON THURSDAY per pcp fluid res bp meds PER SURGERY Problems: Consultation Date/Type/Reason Admit Date/Time Jun 13, 2016 at 14:48 Type of Consultation: RENAL Referring Provider: EVA COX MD 24 HR Interval Summary Constitutional: no complaints, requiring O2 Exam/Review of Systems Vital Signs Vitals Vital Signs Date Time Temp Pulse Resp B/P Pulse Ox O2 Delivery O2 Flow Rate FiO2 07/06/16 16:01 98.9 70 17 127/47 95 07/06/16 15:16 2.0 07/06/16 14:30 Nasal Cannula 07/05/16 21:48 21 Intake and Output 07/05/16 07/05/16 07/06/16 15:00 23:00 07:00 Intake Total 200 ml 690 ml 250 ml Output Total 2200 ml 200 ml 300 ml Balance -2000 ml 490 ml -50 ml Exam Respiratory: diminished breath sounds Cardiovascular: regular rate and rhythm Gastrointestinal: soft Extremities: normal pulses Results Result Diagram: 07/06/16 0535 07/06/16 0535 Results 24 hrs Laboratory Tests Test 07/05/16 17:25 07/05/16 20:39 07/06/16 02:01 07/06/16 05:35 Bedside Glucose 216 233 H 95 Anion Gap 15 Basophils # 0.1 Basophils % 0.7 Blood Urea Nitrogen 42 #H Calcium Level 9.1 Carbon Dioxide Level 29 Chloride Level 97 Creatinine 6.09 #H Eosinophils # 0.2 Eosinophils % 2.8 Glucose Level 132 # Hematocrit 24.1 L Hemoglobin 7.9 L Lymphocytes # 0.7 L Lymphocytes % 10.2 L Mean Corpuscular Hemoglobin 33.1 H Mean Corpuscular Hemoglobin Concent 32.8 Mean Corpuscular Volume 100.8 Mean Platelet Volume 9.9 Monocytes # 0.8 Monocytes % 12.4 H Neutrophils # 4.9 Neutrophils % 73.5 Nucleated Red Blood Cells # 0.0 Nucleated Red Blood Cells % 0.0 Platelet Count 236 Potassium Level 4.5 Red Blood Count 2.39 L Red Cell Distribution Width 12.8 Sodium Level 136 White Blood Count 6.7 Test 07/06/16 07:11 07/06/16 11:54 Bedside Glucose 153 339 H Medications Medications Current Medications IV Flush (NS 10 ml) 10 ml PRN PRN IV FLUSH LINE; Start 06/13/16 at 19:00 Aspirin (Halfprin) 81 mg DAILY PO Last administered on 07/06/16 08:37; Admin Dose 81 MG; Start 06/14/16 at 09:00 Atorvastatin Calcium (Lipitor) 10 mg QHS PO Last administered on 07/05/16 20:41 ; Admin Dose 10 MG; Start 06/14/16 at 21:00 Cholecalciferol (Vitamin D) 400 units DAILY PO Last administered on 07/06/16 08 :37; Admin Dose 400 UNITS; Start 06/14/16 at 09:00 Ferrous Sulfate (Ferrous Sulfate (Ec)) 325 mg BID PO Last administered on 08:36; Admin Dose 325 MG; Start 06/14/16 at 09:00 Acetaminophen (Tylenol Tab) 500 mg Q4H PRN PO PAIN AND OR ELEVATED TEMP Last administered on 07/05/16 05:49; Admin Dose 500 MG; Start 06/14/16 at 00:00 Heparin Sodium (Porcine) (Heparin (5000 Units/0.5 ml)) 5,000 unit BID SC Last administered on 07/05/16 08:10; Admin Dose 5,000 UNIT; Start 06/14/16 at 09:00 Miscellaneous Information 1 ea NOTE XX Last administered on 06/18/16 07:57; Admin Dose 1 EA; Start 06/14/16 at 00:30 Glucose (Glutose) 15 gm Q15M PRN PO DECREASED GLUCOSE; Start 06/14/16 at 00:30 Glucose (Glutose) 22.5 gm Q15M PRN PO DECREASED GLUCOSE; Start 06/14/16 at 00: 30 Dextrose (D50w Syringe) 25 ml Q15M PRN IV DECREASED GLUCOSE; Start 06/14/16 at 00:30 Dextrose (D50w Syringe) 50 ml Q15M PRN IV DECREASED GLUCOSE; Start 06/14/16 at 00:30 Glucagon (Glucagen) 1 mg Q15M PRN IM DECREASED GLUCOSE; Start 06/14/16 at 00:30 Glucose (Glutose) 15 gm Q15M PRN BUCCAL DECREASED GLUCOSE; Start 06/14/16 at 00 :30 Diagnostic Test (Pha) (Accucheck) 1 ea 02 XX Last administered on 07/06/16 02: 13; Admin Dose 1 EA; Start 06/14/16 at 02:00 Amlodipine Besylate (Norvasc) 5 mg BID PO Last administered on 07/06/16 08:37; Admin Dose 5 MG; Start 06/14/16 at 13:30 Clonidine (Catapres) 0.2 mg Q8 PRN PO Systolic >160 Last administered on 02:29; Admin Dose 0.2 MG; Start 06/14/16 at 13:00 Promethazine HCl/ Codeine (Phenergan/ Codeine) 5 ml Q4H PRN PO COUGH Last administered on 06/21/16 18:04; Admin Dose 5 ML; Start 06/15/16 at 00:00 Insulin Glargine (Lantus) 14 unit QHS SC Last administered on 06/23/16 20:31; Admin Dose 14 UNIT; Start 06/15/16 at 21:00; Status Future Hold Pantoprazole (Protonix Tab) 40 mg DAILY@06 PO Last administered on 07/06/16 05: 07; Admin Dose 40 MG; Start 06/16/16 at 06:00 Diphenhydramine HCl (Benadryl) 25 mg HS PRN PO INSOMNIA Last administered on 00:54; Admin Dose 25 MG; Start 06/15/16 at 21:30 Hydralazine HCl (Apresoline) 100 mg Q8 PO Last administered on 07/06/16 13:09; Admin Dose 100 MG; Start 06/19/16 at 13:00 Bisacodyl (Dulcolax) 10 mg DAILY PRN PO CONSTIPATION Last administered on 22:38; Admin Dose 10 MG; Start 06/22/16 at 11:30 Benazepril HCl (Lotensin) 40 mg BID PO Last administered on 07/06/16 08:37; Admin Dose 40 MG; Start 06/23/16 at 21:00 Metoprolol Tartrate (Lopressor) 50 mg BID PO Last administered on 07/06/16 08: 36; Admin Dose 50 MG; Start 06/26/16 at 09:00 Hydralazine HCl (Apresoline) 20 mg Q4H PRN IV for SBP more than 170; Start at 05:00 Ondansetron HCl (Zofran Inj) 4 mg Q6H PRN IV NAUSEA AND/OR VOMITING Last administered on 07/03/16 14:45; Admin Dose 4 MG; Start 06/28/16 at 05:00 Lorazepam (Ativan) 1 mg Q6H PRN IV ANXIETY Last administered on 07/02/16 01:46 ; Admin Dose 1 MG; Start 06/28/16 at 05:00 Clonidine (Catapres) 0.1 mg QID PO Last administered on 07/06/16 13:08; Admin Dose 0.1 MG; Start 06/28/16 at 13:00 Hydromorphone HCl (Dilaudid) 0.5 mg Q4H PRN IV PAIN Last administered on 11:05; Admin Dose 0.5 MG; Start 07/01/16 at 01:30 Hydromorphone HCl (Dilaudid) 1 mg Q3 PRN IV PAIN Last administered on 07/05/16 16:18; Admin Dose 1 MG; Start 07/01/16 at 14:00 Cyclobenzaprine HCl (Flexeril) 10 mg TID PO Last administered on 07/06/16 13:09 ; Admin Dose 10 MG; Start 07/03/16 at 21:00 Clopidogrel Bisulfate (plaVIX) 75 mg DAILY PO Last administered on 07/06/16 08: 37; Admin Dose 75 MG; Start 07/05/16 at 15:00 PAOLA MOODY MD Jul 06, 2016 17:07
--- NOTE | 2016-07-06 17:47 | CONS ---
NORI JORGENSEN TECHNICAL OPERATOR 07/06/16 1747: Date/Time of Note Date/Time of Note DATE: 07/06/16 TIME: 17:47 Assessment/Plan Assessment/Plan Chief Complaint/Hosp Course assessment/impression: - h/o recurrent pleural effusion requiring thoracentesis approximately once a year, last performed in 04/2016 - s/p R VATS, total pulmonary decortication, R pleurodesis on 06/30/2016. Biopsy was negative for fungal stain and AFB stain (micro lab and pathology department), as well as malignancy. 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 Per Pt, his past PPD was done in 2013, and was negative. - high risk for TB: history (originally from [facility], spends one month of each year in [facility], last in 09/2015), medical history (DM, ESRD) - based on the above history and findings, a risk of tuberculosis is high - DM - ESRD on HD - CAD s/p CABG in 2010 and cardiac stent in 2013 recommendations: - continue isolation in negative pressure room and f/u on serial sputum for AFB smear and culture x3 - I requested mycobacterium tuberculosis DNR probe (PCR) to the 1st sputum sample - I recommend sending more pleural fluid for mycobacterium tuberculosis DNR probe (PCR) - HIV screen (negative) - Pt is at a high risk for TB, and may benefit from empiric anti-TB treatment even if the biopsy was negative for AFB. But first, sputum for AFB smear and culture x3 must be done. - management d/w Pt and Pt's nurse - Above d/w Dr. Verduzco Problems: Consultation Date/Type/Reason Admit Date/Time Jun 13, 2016 at 14:48 Initial Consult Date 07/04/16 Type of Consultation: Infectious Disease Referring Provider: EVA COX MD 24 HR Interval Summary Free Text/Dictation Pt getting out of bed to use the bathroom. C/o discomfort related to chest tube. Denies SOB, cough, f/c, abd pain, n/v/d. Sputum for AFB on 07/04/16 was not sufficient; sputum specimen sent last night and another specimen to be collected by RT this evening per DOUGLAS Salinas. Another specimen sent early this AM per pt. Exam/Review of Systems Vital Signs Vitals Vital Signs Date Time Temp Pulse Resp B/P Pulse Ox O2 Delivery O2 Flow Rate FiO2 07/06/16 16:01 98.9 70 17 127/47 95 07/06/16 15:16 2.0 07/06/16 14:30 Nasal Cannula 07/05/16 21:48 21 Intake and Output 07/05/16 07/05/16 07/06/16 15:00 23:00 07:00 Intake Total 200 ml 690 ml 250 ml Output Total 2200 ml 200 ml 300 ml Balance -2000 ml 490 ml -50 ml Exam Constitutional: alert, oriented, well developed Psych: nl mood/affect Head: atraumatic, normocephalic Neck: supple Respiratory: clear to auscultation (anteriorly), diminished breath sounds (RLL) , other (Right sided chest tube intact without leak with serous drainage) Cardiovascular: nl pulses, regular rate and rhythm Gastrointestinal: non-tender, soft Genitourinary - Male: other (Jonas catheter intact with clear yellow urine) Extremities: other (RUE AVF with good bruit and thrill), No clubbing, No cyanosis Neurological: ASBESTOS COVERER II-XII intact, nl mental status, nl speech Skin: nl turgor, No rash or lesions Results Result Diagram: 07/06/16 0535 07/06/16 0535 Results 24 hrs Laboratory Tests Test 07/05/16 20:39 07/06/16 02:01 07/06/16 05:35 07/06/16 07:11 Bedside Glucose 233 H 95 153 Anion Gap 15 Basophils # 0.1 Basophils % 0.7 Blood Urea Nitrogen 42 #H Calcium Level 9.1 Carbon Dioxide Level 29 Chloride Level 97 Creatinine 6.09 #H Eosinophils # 0.2 Eosinophils % 2.8 Glucose Level 132 # Hematocrit 24.1 L Hemoglobin 7.9 L Lymphocytes # 0.7 L Lymphocytes % 10.2 L Mean Corpuscular Hemoglobin 33.1 H Mean Corpuscular Hemoglobin Concent 32.8 Mean Corpuscular Volume 100.8 Mean Platelet Volume 9.9 Monocytes # 0.8 Monocytes % 12.4 H Neutrophils # 4.9 Neutrophils % 73.5 Nucleated Red Blood Cells # 0.0 Nucleated Red Blood Cells % 0.0 Platelet Count 236 Potassium Level 4.5 Red Blood Count 2.39 L Red Cell Distribution Width 12.8 Sodium Level 136 White Blood Count 6.7 Test 07/06/16 11:54 07/06/16 17:38 Bedside Glucose 339 H 173 Medications Medications Current Medications IV Flush (NS 10 ml) 10 ml PRN PRN IV FLUSH LINE; Start 06/13/16 at 19:00 Aspirin (Halfprin) 81 mg DAILY PO Last administered on 07/06/16 08:37; Admin Dose 81 MG; Start 06/14/16 at 09:00 Atorvastatin Calcium (Lipitor) 10 mg QHS PO Last administered on 07/05/16 20:41 ; Admin Dose 10 MG; Start 06/14/16 at 21:00 Cholecalciferol (Vitamin D) 400 units DAILY PO Last administered on 07/06/16 08 :37; Admin Dose 400 UNITS; Start 06/14/16 at 09:00 Ferrous Sulfate (Ferrous Sulfate (Ec)) 325 mg BID PO Last administered on 08:36; Admin Dose 325 MG; Start 06/14/16 at 09:00 Acetaminophen (Tylenol Tab) 500 mg Q4H PRN PO PAIN AND OR ELEVATED TEMP Last administered on 07/05/16 05:49; Admin Dose 500 MG; Start 06/14/16 at 00:00 Heparin Sodium (Porcine) (Heparin (5000 Units/0.5 ml)) 5,000 unit BID SC Last administered on 07/05/16 08:10; Admin Dose 5,000 UNIT; Start 06/14/16 at 09:00 Miscellaneous Information 1 ea NOTE XX Last administered on 06/18/16 07:57; Admin Dose 1 EA; Start 06/14/16 at 00:30 Glucose (Glutose) 15 gm Q15M PRN PO DECREASED GLUCOSE; Start 06/14/16 at 00:30 Glucose (Glutose) 22.5 gm Q15M PRN PO DECREASED GLUCOSE; Start 06/14/16 at 00: 30 Dextrose (D50w Syringe) 25 ml Q15M PRN IV DECREASED GLUCOSE; Start 06/14/16 at 00:30 Dextrose (D50w Syringe) 50 ml Q15M PRN IV DECREASED GLUCOSE; Start 06/14/16 at 00:30 Glucagon (Glucagen) 1 mg Q15M PRN IM DECREASED GLUCOSE; Start 06/14/16 at 00:30 Glucose (Glutose) 15 gm Q15M PRN BUCCAL DECREASED GLUCOSE; Start 06/14/16 at 00 :30 Diagnostic Test (Pha) (Accucheck) 1 ea 02 XX Last administered on 07/06/16 02: 13; Admin Dose 1 EA; Start 06/14/16 at 02:00 Amlodipine Besylate (Norvasc) 5 mg BID PO Last administered on 07/06/16 08:37; Admin Dose 5 MG; Start 06/14/16 at 13:30 Clonidine (Catapres) 0.2 mg Q8 PRN PO Systolic >160 Last administered on 02:29; Admin Dose 0.2 MG; Start 06/14/16 at 13:00 Promethazine HCl/ Codeine (Phenergan/ Codeine) 5 ml Q4H PRN PO COUGH Last administered on 06/21/16 18:04; Admin Dose 5 ML; Start 06/15/16 at 00:00 Insulin Glargine (Lantus) 14 unit QHS SC Last administered on 06/23/16 20:31; Admin Dose 14 UNIT; Start 06/15/16 at 21:00; Status Future Hold Pantoprazole (Protonix Tab) 40 mg DAILY@06 PO Last administered on 07/06/16 05: 07; Admin Dose 40 MG; Start 06/16/16 at 06:00 Diphenhydramine HCl (Benadryl) 25 mg HS PRN PO INSOMNIA Last administered on 00:54; Admin Dose 25 MG; Start 06/15/16 at 21:30 Hydralazine HCl (Apresoline) 100 mg Q8 PO Last administered on 07/06/16 13:09; Admin Dose 100 MG; Start 06/19/16 at 13:00 Bisacodyl (Dulcolax) 10 mg DAILY PRN PO CONSTIPATION Last administered on 22:38; Admin Dose 10 MG; Start 06/22/16 at 11:30 Benazepril HCl (Lotensin) 40 mg BID PO Last administered on 07/06/16 08:37; Admin Dose 40 MG; Start 06/23/16 at 21:00 Metoprolol Tartrate (Lopressor) 50 mg BID PO Last administered on 07/06/16 08: 36; Admin Dose 50 MG; Start 06/26/16 at 09:00 Hydralazine HCl (Apresoline) 20 mg Q4H PRN IV for SBP more than 170; Start at 05:00 Ondansetron HCl (Zofran Inj) 4 mg Q6H PRN IV NAUSEA AND/OR VOMITING Last administered on 07/03/16 14:45; Admin Dose 4 MG; Start 06/28/16 at 05:00 Lorazepam (Ativan) 1 mg Q6H PRN IV ANXIETY Last administered on 07/02/16 01:46 ; Admin Dose 1 MG; Start 06/28/16 at 05:00 Clonidine (Catapres) 0.1 mg QID PO Last administered on 07/06/16 17:44; Admin Dose 0.1 MG; Start 06/28/16 at 13:00 Hydromorphone HCl (Dilaudid) 0.5 mg Q4H PRN IV PAIN Last administered on 11:05; Admin Dose 0.5 MG; Start 07/01/16 at 01:30 Hydromorphone HCl (Dilaudid) 1 mg Q3 PRN IV PAIN Last administered on 07/05/16 16:18; Admin Dose 1 MG; Start 07/01/16 at 14:00 Cyclobenzaprine HCl (Flexeril) 10 mg TID PO Last administered on 07/06/16 13:09 ; Admin Dose 10 MG; Start 07/03/16 at 21:00 Clopidogrel Bisulfate (plaVIX) 75 mg DAILY PO Last administered on 07/06/16 08: 37; Admin Dose 75 MG; Start 07/05/16 at 15:00 YUMIKO VERDUZCO M.D. 07/07/16 1038: Assessment/Plan Assessment/Plan Additional Assessment/Plan Dax attestation: I discussed the management with ISABEL Jorgensen and agree with above. correction: DNA probe, not DNR probe (typographical mistake) Exam/Review of Systems Results Result Diagram: 07/06/16 0535 07/06/16 0535 NORI JORGENSEN NP Jul 06, 2016 17:47 YUMIKO VERDUZCO M.D. Jul 07, 2016 10:38
[2016-07-06] MEDS: HYDROmorphONE 1 MG/ML SYG IV PRN (20:22)
[2016-07-06] MEDS: ATORVASTATIN 10 MG TAB PO SCH (20:28)
[2016-07-07] VITALS (11 sets, daily range): BP systolic 119–149; BP diastolic 49–96; PULSE 69; RESP 15–18
[2016-07-07] MEDS: ACCU-CHEK XX SCH ×5 (02:00→21:24)
[2016-07-07] MEDS: PANTOPRAZOLE (EC) 40 MG TAB PO SCH (05:14)
[2016-07-07 06:46] LABS: ADD SCAN DIFF NO
[2016-07-07 06:49] LABS: BASOPHIL # 0.1 10^3/ul (0.0-0.1); BASOPHILS % 0.8 % (0.0-2.0); EOSINOPHILS # 0.5 10^3/ul (0.0-0.5); EOSINOPHILS % 5.9 % (0.0-7.0); HEMATOCRIT 21.9 % (42.0-52.0); HEMOGLOBIN 7.4 g/dl (14.0-18.0); LYMPHOCYTES # 0.9 10^3/ul (0.8-2.9); MEAN CORPUSCULAR HEMOGLOBIN 33.5 pg (29.0-33.0); MEAN CORPUSCULAR HGB CONC 33.8 g/dl (32.0-37.0); MEAN CORPUSCULAR VOLUME 99.1 fl (82.0-101.0); MEAN PLATELET VOLUME 9.7 fl (7.4-10.4); MONOCYTE # 1.2 10^3/ul (0.3-0.9); MONOCYTES % 12.7 % (0.0-11.0); NEUTROPHIL # 6.4 10^3/ul (1.6-7.5); PLATELET COUNT 263 10^3/UL (140-415); RED BLOOD COUNT 2.21 10^6/ul (4.70-6.10); RED CELL DISTRIBUTION WIDTH 12.6 % (11.5-14.5); WHITE BLOOD COUNT 9.1 10^3/ul (4.8-10.8)
[2016-07-07 07:00] LABS: POTASSIUM 4.7 mmol/L (3.5-5.1)
[2016-07-07 07:03] LABS: CREATININE 7.39 mg/dl (0.61-1.24)
[2016-07-07 07:04] LABS: CALCIUM 9.4 mg/dl (8.4-10.2)
[2016-07-07] MEDS: SEVELAMER CARBONATE 0.8 GM PKT PO SCH ×3 (08:30→17:36)
[2016-07-07] MEDS: CALCIUM ACETATE 667 MG CAP PO SCH ×3 (08:30→17:37)
[2016-07-07] MEDS: FERROUS SULFATE (EC) 325 MG TAB PO SCH ×2 (08:30→21:21)
[2016-07-07] MEDS: CHOLECALCIFEROL 400 UNITS TAB PO SCH (08:31)
[2016-07-07] MEDS: CLOPIDOGREL 75 MG TAB PO SCH (08:31)
[2016-07-07] MEDS: ASPIRIN (EC) 81 MG TAB PO SCH (08:32)
[2016-07-07] MEDS: AMLODIPINE 5 MG TAB PO SCH ×2 (08:32→21:19)
[2016-07-07] MEDS: CYCLOBENZAPRINE 10 MG TAB PO SCH ×3 (08:32→21:21)
[2016-07-07] MEDS: HEPARIN 5,000 UNIT/0.5 ML SYG SC SCH ×2 (08:44→21:00)
[2016-07-07] MEDS: INSULIN ASPART [NOVOLOG] 3 ML PEN SC SCH ×4 (08:44→21:25)
[2016-07-07] MEDS: BENAZEPRIL 40 MG TAB PO SCH ×2 (09:26→21:20)
[2016-07-07] MEDS: METOPROLOL 25 MG TAB PO SCH ×2 (09:27→21:21)
[2016-07-07] MEDS: HYDROmorphONE 1 MG/ML SYG IV PRN ×2 (09:30→22:27)
--- NOTE | 2016-07-07 10:41 | CONS ---
Date/Time of Note Date/Time of Note DATE: 07/07/16 TIME: 10:39 Assessment/Plan Assessment/Plan Chief Complaint/Hosp Course assessment/impression - h/o recurrent pleural effusion requiring thoracentesis approximately once a year, last performed in 04/2016 - s/p R VATS, total pulmonary decortication, R pleurodesis on 06/30/2016. Biopsy was negative for fungal stain and AFB stain (micro lab and pathology department), as well as malignancy. 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 Per Pt, his past PPD was done in 2013, and was negative. - high risk for TB, possible pleural TB: history (originally from [facility], spends one month of each year in [facility], last in 09/2015), medical history ( DM, ESRD), medical findings as above - DM - ESRD on HD - CAD s/p CABG in 2010 and cardiac stent in 2013 - HIV screen negative in 07/2016 tested at [facility] recommendations - complete sputum for AFB smear and culture x3 - mycobacterium tuberculosis DNA probe (PCR) to the 1st sputum sample is in process, will review the results - Pt is at a high risk for TB, and may benefit from empiric anti-TB treatment even if the biopsy was negative for AFB. But first, sputum for AFB smear x3 must be completed. management d/w Pt Problems: Consultation Date/Type/Reason Admit Date/Time Jun 13, 2016 at 14:48 Initial Consult Date 07/04/16 Type of Consultation: Infectious Disease Referring Provider: EVA COX MD 24 HR Interval Summary Constitutional: no complaints, poor po Detailed Summary Eyes: no complaints ENT: no complaints Respiratory: cough (dry), pleuritic pain Cardiovascular: no complaints Gastrointestinal: no complaints Genitourinary: other (on HD) Musculoskeletal: no complaints Skin: no complaints Neurologic: no complaints Exam/Review of Systems Vital Signs Vitals Vital Signs Date Time Temp Pulse Resp B/P Pulse Ox O2 Delivery O2 Flow Rate FiO2 07/07/16 09:18 69 07/07/16 07:55 98.0 18 144/51 97 07/07/16 06:52 2.0 07/06/16 20:15 Nasal Cannula 07/05/16 21:48 21 Intake and Output 07/06/16 07/06/16 07/07/16 15:00 23:00 07:00 Intake Total 800 ml 480 ml Output Total 250 ml 250 ml Balance 550 ml 230 ml Exam Constitutional: alert, frail Psych: nl mood/affect, no complaints Head: atraumatic, normocephalic Eyes: nl conjunctiva, nl lids ENMT: nl external ears & nose, nl nasal mucosa & septum Neck: supple Respiratory: diminished breath sounds, other (CP on R side) Cardiovascular: nl pulses, regular rate and rhythm Gastrointestinal: nl liver, spleen, non-tender, soft Musculoskeletal: nl extremities to inspection Extremities: No edema Results Result Diagram: 07/07/16 0610 07/07/16 0610 Results 24 hrs Laboratory Tests Test 07/06/16 11:54 07/06/16 17:38 07/06/16 19:51 07/07/16 05:13 Bedside Glucose 339 H 173 202 175 Test 07/07/16 06:10 07/07/16 07:53 Anion Gap 13 Basophils # 0.1 Basophils % 0.8 Blood Urea Nitrogen 52 H Calcium Level 9.4 Carbon Dioxide Level 30 Chloride Level 94 L Creatinine 7.39 H Eosinophils # 0.5 Eosinophils % 5.9 Glucose Level 168 Hematocrit 21.9 L Hemoglobin 7.4 L Lymphocytes # 0.9 Lymphocytes % 10.0 L Mean Corpuscular Hemoglobin 33.5 H Mean Corpuscular Hemoglobin Concent 33.8 Mean Corpuscular Volume 99.1 Mean Platelet Volume 9.7 Monocytes # 1.2 H Monocytes % 12.7 H Neutrophils # 6.4 Neutrophils % 70.0 Nucleated Red Blood Cells # 0.0 Nucleated Red Blood Cells % 0.0 Platelet Count 263 Potassium Level 4.7 Red Blood Count 2.21 L Red Cell Distribution Width 12.6 Sodium Level 132 L White Blood Count 9.1 # Bedside Glucose 183 Medications Medications Current Medications IV Flush (NS 10 ml) 10 ml PRN PRN IV FLUSH LINE; Start 06/13/16 at 19:00 Aspirin (Halfprin) 81 mg DAILY PO Last administered on 07/07/16 08:32; Admin Dose 81 MG; Start 06/14/16 at 09:00 Atorvastatin Calcium (Lipitor) 10 mg QHS PO Last administered on 07/06/16 20:28 ; Admin Dose 10 MG; Start 06/14/16 at 21:00 Cholecalciferol (Vitamin D) 400 units DAILY PO Last administered on 07/07/16 08 :31; Admin Dose 400 UNITS; Start 06/14/16 at 09:00 Ferrous Sulfate (Ferrous Sulfate (Ec)) 325 mg BID PO Last administered on 08:30; Admin Dose 325 MG; Start 06/14/16 at 09:00 Acetaminophen (Tylenol Tab) 500 mg Q4H PRN PO PAIN AND OR ELEVATED TEMP Last administered on 07/05/16 05:49; Admin Dose 500 MG; Start 06/14/16 at 00:00 Heparin Sodium (Porcine) (Heparin (5000 Units/0.5 ml)) 5,000 unit BID SC Last administered on 07/05/16 08:10; Admin Dose 5,000 UNIT; Start 06/14/16 at 09:00 Miscellaneous Information 1 ea NOTE XX Last administered on 06/18/16 07:57; Admin Dose 1 EA; Start 06/14/16 at 00:30 Glucose (Glutose) 15 gm Q15M PRN PO DECREASED GLUCOSE; Start 06/14/16 at 00:30 Glucose (Glutose) 22.5 gm Q15M PRN PO DECREASED GLUCOSE; Start 06/14/16 at 00: 30 Dextrose (D50w Syringe) 25 ml Q15M PRN IV DECREASED GLUCOSE; Start 06/14/16 at 00:30 Dextrose (D50w Syringe) 50 ml Q15M PRN IV DECREASED GLUCOSE; Start 06/14/16 at 00:30 Glucagon (Glucagen) 1 mg Q15M PRN IM DECREASED GLUCOSE; Start 06/14/16 at 00:30 Glucose (Glutose) 15 gm Q15M PRN BUCCAL DECREASED GLUCOSE; Start 06/14/16 at 00 :30 Diagnostic Test (Pha) (Accucheck) 1 ea 02 XX Last administered on 07/07/16 02: 00; Admin Dose 1 EA; Start 06/14/16 at 02:00 Amlodipine Besylate (Norvasc) 5 mg BID PO Last administered on 07/07/16 08:32; Admin Dose 5 MG; Start 06/14/16 at 13:30 Clonidine (Catapres) 0.2 mg Q8 PRN PO Systolic >160 Last administered on 02:29; Admin Dose 0.2 MG; Start 06/14/16 at 13:00 Promethazine HCl/ Codeine (Phenergan/ Codeine) 5 ml Q4H PRN PO COUGH Last administered on 06/21/16 18:04; Admin Dose 5 ML; Start 06/15/16 at 00:00 Insulin Glargine (Lantus) 14 unit QHS SC Last administered on 06/23/16 20:31; Admin Dose 14 UNIT; Start 06/15/16 at 21:00; Status Future Hold Pantoprazole (Protonix Tab) 40 mg DAILY@06 PO Last administered on 07/07/16 05: 14; Admin Dose 40 MG; Start 06/16/16 at 06:00 Diphenhydramine HCl (Benadryl) 25 mg HS PRN PO INSOMNIA Last administered on 00:54; Admin Dose 25 MG; Start 06/15/16 at 21:30 Hydralazine HCl (Apresoline) 100 mg Q8 PO Last administered on 07/07/16 05:14; Admin Dose 100 MG; Start 06/19/16 at 13:00 Bisacodyl (Dulcolax) 10 mg DAILY PRN PO CONSTIPATION Last administered on 22:38; Admin Dose 10 MG; Start 06/22/16 at 11:30 Benazepril HCl (Lotensin) 40 mg BID PO Last administered on 07/07/16 09:26; Admin Dose 40 MG; Start 06/23/16 at 21:00 Metoprolol Tartrate (Lopressor) 50 mg BID PO Last administered on 07/07/16 09: 27; Admin Dose 50 MG; Start 06/26/16 at 09:00 Hydralazine HCl (Apresoline) 20 mg Q4H PRN IV for SBP more than 170; Start at 05:00 Ondansetron HCl (Zofran Inj) 4 mg Q6H PRN IV NAUSEA AND/OR VOMITING Last administered on 07/03/16 14:45; Admin Dose 4 MG; Start 06/28/16 at 05:00 Lorazepam (Ativan) 1 mg Q6H PRN IV ANXIETY Last administered on 07/02/16 01:46 ; Admin Dose 1 MG; Start 06/28/16 at 05:00 Clonidine (Catapres) 0.1 mg QID PO Last administered on 07/07/16 08:32; Admin Dose 0.1 MG; Start 06/28/16 at 13:00 Hydromorphone HCl (Dilaudid) 0.5 mg Q4H PRN IV PAIN Last administered on 11:05; Admin Dose 0.5 MG; Start 07/01/16 at 01:30 Hydromorphone HCl (Dilaudid) 1 mg Q3 PRN IV PAIN Last administered on 07/07/16 09:30; Admin Dose 1 MG; Start 07/01/16 at 14:00 Cyclobenzaprine HCl (Flexeril) 10 mg TID PO Last administered on 07/07/16 08:32 ; Admin Dose 10 MG; Start 07/03/16 at 21:00 Clopidogrel Bisulfate (plaVIX) 75 mg DAILY PO Last administered on 07/07/16 08: 31; Admin Dose 75 MG; Start 07/05/16 at 15:00 YUMIKO NICHOLSON M.D. Jul 07, 2016 10:41
--- NOTE | 2016-07-07 13:36 | PN ---
DATE: 07/07/2016 SUBJECTIVE: The patient is stable this morning in respiratory isolation. PHYSICAL EXAMINATION: VITAL SIGNS: Temperature 98, pulse 70, blood pressure 144/49, O2 saturation 96% on 3 L nasal cannul a. NECK: Supple. No JVD or lymphadenopathy. CARDIAC: S1, S2, no added sounds or murmurs. CHEST: Diminished air entry bilaterally. ABDOMEN: Soft, nontender. No guarding or rebound. EXTREMITIES: No cyanosis, clubbing, edema. NEUROLOGIC: Generalized weakness. No focal deficits. IMPRESSION AND PLAN: 1. Status post VATS decortication of loculated pleural effusion. 2. History of positive QuantiFERON Gold. 3. History of granulomas. The patient currently being ruled out for TB, pending final AFB smears. Continue with ID recommendations. Continue with thoracic surgery recommendations. Encourage out of bed as tolerated. Dictated By: MATILDE SHEPHERD/MANJIT Conf#: [id number] DID#: [id number]
[2016-07-07] MEDS ORDERED: SOD CHLORIDE 0.9% 250 ML IV* ONE (14:19)
--- NOTE | 2016-07-07 14:19 | PN ---
Date/Time of Note Date/Time of Note DATE: 07/07/16 TIME: 14:16 Assessment/Plan VTE Prophylaxis VTE Prophylaxis Intervention: SCD's Lines/Catheters IV C[facility]ter Type (from [email or web address] PICC Line Central line still needed: Yes Urinary Cath still in place: No Assessment/Plan Chief Complaint/Hosp Course Assessment and plan - Recurrent pleural effusions. Dr. Martinez is following in thoracic surgery consultation. S/p VATS 06/30. Follow-up on intraoperative cultures. Dr. Carl is following in infectious disease consultation. - Right pleural effusion, status post thoracentesis. Dr. Dale is following in pulmonology consultation. - End-stage renal disease, continue hemodialysis. Dr. Saunders is following in nephrology consultation. - Diabetes mellitus type 2, continue Lantus and NovoLog - Hypertension. Dr. De Santiago is following and cardiology consultation. - Coronary artery disease, status post coronary artery bypass graft. - Permanent pacemaker. No acute issues. - Dyslipidemia. Continue Lipitor. - Anemia of chronic disease, will transfuse 2 units of packed red blood cells with next hemodialysis. Continue heparin for deep venous thrombosis prophylaxis and Protonix for peptic ulcer disease prophylaxis. Further recommendations based on clinical course. Plan of care discussed with Dr. Price. Problems: Subjective 24 Hr Interval Summary Free Text/Dictation Patient is comfortable on supplemental oxygen, denies any shortness of breath denies any chest pain. Exam/Review of Systems Vital Signs Vitals Vital Signs Date Time Temp Pulse Resp B/P Pulse Ox O2 Delivery O2 Flow Rate FiO2 07/07/16 13:45 69 07/07/16 12:27 98.0 18 144/49 98 07/07/16 11:19 Nasal Cannula 3.0 07/05/16 21:48 21 Intake and Output 07/06/16 07/06/16 07/07/16 15:00 23:00 07:00 Intake Total 800 ml 480 ml Output Total 250 ml 250 ml Balance 550 ml 230 ml Exam Constitutional: alert Psych: no complaints Head: atraumatic, normocephalic Eyes: nl conjunctiva ENMT: nl external ears & nose Neck: non-tender, supple Respiratory: clear to auscultation, R chest tube Cardiovascular: nl pulses Gastrointestinal: non-tender, soft Musculoskeletal: nl extremities to inspection Extremities: normal pulses Neurological: [employer] II-XII intact Skin: nl turgor Results Result Diagram: 07/07/16 0610 07/07/16 0610 Results 24 hrs Laboratory Tests Test 07/06/16 17:38 07/06/16 19:51 07/07/16 05:13 07/07/16 06:10 Bedside Glucose 173 202 175 Anion Gap 13 Basophils # 0.1 Basophils % 0.8 Blood Urea Nitrogen 52 H Calcium Level 9.4 Carbon Dioxide Level 30 Chloride Level 94 L Creatinine 7.39 H Eosinophils # 0.5 Eosinophils % 5.9 Glucose Level 168 Hematocrit 21.9 L Hemoglobin 7.4 L Lymphocytes # 0.9 Lymphocytes % 10.0 L Mean Corpuscular Hemoglobin 33.5 H Mean Corpuscular Hemoglobin Concent 33.8 Mean Corpuscular Volume 99.1 Mean Platelet Volume 9.7 Monocytes # 1.2 H Monocytes % 12.7 H Neutrophils # 6.4 Neutrophils % 70.0 Nucleated Red Blood Cells # 0.0 Nucleated Red Blood Cells % 0.0 Platelet Count 263 Potassium Level 4.7 Red Blood Count 2.21 L Red Cell Distribution Width 12.6 Sodium Level 132 L White Blood Count 9.1 # Test 07/07/16 07:53 07/07/16 11:52 Bedside Glucose 183 209 Medications Medications Current Medications IV Flush (NS 10 ml) 10 ml PRN PRN IV FLUSH LINE; Start 06/13/16 at 19:00 Aspirin (Halfprin) 81 mg DAILY PO Last administered on 07/07/16 08:32; Admin Dose 81 MG; Start 06/14/16 at 09:00 Atorvastatin Calcium (Lipitor) 10 mg QHS PO Last administered on 07/06/16 20:28 ; Admin Dose 10 MG; Start 06/14/16 at 21:00 Cholecalciferol (Vitamin D) 400 units DAILY PO Last administered on 07/07/16 08 :31; Admin Dose 400 UNITS; Start 06/14/16 at 09:00 Ferrous Sulfate (Ferrous Sulfate (Ec)) 325 mg BID PO Last administered on 08:30; Admin Dose 325 MG; Start 06/14/16 at 09:00 Acetaminophen (Tylenol Tab) 500 mg Q4H PRN PO PAIN AND OR ELEVATED TEMP Last administered on 07/05/16 05:49; Admin Dose 500 MG; Start 06/14/16 at 00:00 Heparin Sodium (Porcine) (Heparin (5000 Units/0.5 ml)) 5,000 unit BID SC Last administered on 07/05/16 08:10; Admin Dose 5,000 UNIT; Start 06/14/16 at 09:00 Miscellaneous Information 1 ea NOTE XX Last administered on 06/18/16 07:57; Admin Dose 1 EA; Start 06/14/16 at 00:30 Glucose (Glutose) 15 gm Q15M PRN PO DECREASED GLUCOSE; Start 06/14/16 at 00:30 Glucose (Glutose) 22.5 gm Q15M PRN PO DECREASED GLUCOSE; Start 06/14/16 at 00: 30 Dextrose (D50w Syringe) 25 ml Q15M PRN IV DECREASED GLUCOSE; Start 06/14/16 at 00:30 Dextrose (D50w Syringe) 50 ml Q15M PRN IV DECREASED GLUCOSE; Start 06/14/16 at 00:30 Glucagon (Glucagen) 1 mg Q15M PRN IM DECREASED GLUCOSE; Start 06/14/16 at 00:30 Glucose (Glutose) 15 gm Q15M PRN BUCCAL DECREASED GLUCOSE; Start 06/14/16 at 00 :30 Diagnostic Test (Pha) (Accucheck) 1 ea 02 XX Last administered on 07/07/16 02: 00; Admin Dose 1 EA; Start 06/14/16 at 02:00 Amlodipine Besylate (Norvasc) 5 mg BID PO Last administered on 07/07/16 08:32; Admin Dose 5 MG; Start 06/14/16 at 13:30 Clonidine (Catapres) 0.2 mg Q8 PRN PO Systolic >160 Last administered on 02:29; Admin Dose 0.2 MG; Start 06/14/16 at 13:00 Promethazine HCl/ Codeine (Phenergan/ Codeine) 5 ml Q4H PRN PO COUGH Last administered on 06/21/16 18:04; Admin Dose 5 ML; Start 06/15/16 at 00:00 Insulin Glargine (Lantus) 14 unit QHS SC Last administered on 06/23/16 20:31; Admin Dose 14 UNIT; Start 06/15/16 at 21:00; Status Future Hold Pantoprazole (Protonix Tab) 40 mg DAILY@06 PO Last administered on 07/07/16 05: 14; Admin Dose 40 MG; Start 06/16/16 at 06:00 Diphenhydramine HCl (Benadryl) 25 mg HS PRN PO INSOMNIA Last administered on 00:54; Admin Dose 25 MG; Start 06/15/16 at 21:30 Hydralazine HCl (Apresoline) 100 mg Q8 PO Last administered on 07/07/16 05:14; Admin Dose 100 MG; Start 06/19/16 at 13:00 Bisacodyl (Dulcolax) 10 mg DAILY PRN PO CONSTIPATION Last administered on 22:38; Admin Dose 10 MG; Start 06/22/16 at 11:30 Benazepril HCl (Lotensin) 40 mg BID PO Last administered on 07/07/16 09:26; Admin Dose 40 MG; Start 06/23/16 at 21:00 Metoprolol Tartrate (Lopressor) 50 mg BID PO Last administered on 07/07/16 09: 27; Admin Dose 50 MG; Start 06/26/16 at 09:00 Hydralazine HCl (Apresoline) 20 mg Q4H PRN IV for SBP more than 170; Start at 05:00 Ondansetron HCl (Zofran Inj) 4 mg Q6H PRN IV NAUSEA AND/OR VOMITING Last administered on 07/03/16 14:45; Admin Dose 4 MG; Start 06/28/16 at 05:00 Lorazepam (Ativan) 1 mg Q6H PRN IV ANXIETY Last administered on 07/02/16 01:46 ; Admin Dose 1 MG; Start 06/28/16 at 05:00 Clonidine (Catapres) 0.1 mg QID PO Last administered on 07/07/16 12:38; Admin Dose 0.1 MG; Start 06/28/16 at 13:00 Hydromorphone HCl (Dilaudid) 0.5 mg Q4H PRN IV PAIN Last administered on 11:05; Admin Dose 0.5 MG; Start 07/01/16 at 01:30 Hydromorphone HCl (Dilaudid) 1 mg Q3 PRN IV PAIN Last administered on 07/07/16 09:30; Admin Dose 1 MG; Start 07/01/16 at 14:00 Cyclobenzaprine HCl (Flexeril) 10 mg TID PO Last administered on 07/07/16 12:31 ; Admin Dose 10 MG; Start 07/03/16 at 21:00 Clopidogrel Bisulfate (plaVIX) 75 mg DAILY PO Last administered on 07/07/16 08: 31; Admin Dose 75 MG; Start 07/05/16 at 15:00 CECILIA DAMICO Jul 07, 2016 14:19
[2016-07-07] MEDS: LEVALBUTEROL (HFA) 15 GM INHALER INH SCH ×2 (15:07→15:54)
--- NOTE | 2016-07-07 15:48 | CONS ---
Date/Time of Note Date/Time of Note DATE: 07/07/16 TIME: 15:43 Assessment/Plan Assessment/Plan Chief Complaint/Hosp Course IMPRESSION: 1. Abnormal electrocardiogram, assess for acute coronary syndrome.-negative troponin x 3 2. History of recent negative stress, May 2015. 3. History of percutaneous transluminal coronary angioplasty and stent placement in 2014 to the left main left anterior descending. No current chest pain. 4. Hypertension, mildly elevated. 5. History of dyslipidemia. 6. Pleural effusion, status post thoracentesis. 7. Possible pneumonia/cough-improved 8. Diabetes mellitus. 9. End-stage renal disease, on hemodialysis. 10. Had WCT-06/27 which was paced beats at approx 100. NO recurrence since RECOMMENDATIONS: -Tele -Continue metoprolol -Continue Benazepril -Continue norvasc/hydralazine -Continue asa/statin -resume plavix when possible -Consider abx's and f/u cx data -Follow volume status with HD for volume removal -Follow CT output closely Problems: Consultation Date/Type/Reason Admit Date/Time Jun 13, 2016 at 14:48 Initial Consult Date 06/14/2016 Type of Consultation: Cardiology Reason for Consultation HTN Referring Provider: EVA COX MD Exam/Review of Systems Vital Signs Vitals Vital Signs Date Time Temp Pulse Resp B/P Pulse Ox O2 Delivery O2 Flow Rate FiO2 07/07/16 13:45 69 07/07/16 12:27 98.0 18 144/49 98 07/07/16 11:19 Nasal Cannula 3.0 07/05/16 21:48 21 Intake and Output 07/06/16 07/06/16 07/07/16 14:59 22:59 06:59 Intake Total 800 ml 480 ml Output Total 250 ml 250 ml Balance 550 ml 230 ml Exam Review of Systems: CONSTITUTIONAL: No fevers, chills. PULMONARY: mild sob CARDIOVASCULAR: No chest pain/palpitations GASTROINTESTINAL: No nausea/vomiting. GENITOURINARY: No hematuria/dysuria. MUSCULOSKELETAL: No myagias/arthalgias. PSYCHIATRIC: The patient denies depression. NEUROLOGIC: No weakness Constitutional: alert Psych: no complaints Head: normocephalic ENMT: mucosa pink and moist Neck: jvd (9 cm water), supple Respiratory: diminished breath sounds (R>L) Cardiovascular: regular rate and rhythm Gastrointestinal: non-tender, soft Musculoskeletal: muscle tone (normal) Extremities: edema (none) Neurological: other (No focal deficits) Results Result Diagram: 07/07/16 0610 07/07/16 0610 Results 24 hrs Laboratory Tests Test 07/06/16 17:38 07/06/16 19:51 07/07/16 05:13 07/07/16 06:10 Bedside Glucose 173 202 175 Anion Gap 13 Basophils # 0.1 Basophils % 0.8 Blood Urea Nitrogen 52 H Calcium Level 9.4 Carbon Dioxide Level 30 Chloride Level 94 L Creatinine 7.39 H Eosinophils # 0.5 Eosinophils % 5.9 Glucose Level 168 Hematocrit 21.9 L Hemoglobin 7.4 L Lymphocytes # 0.9 Lymphocytes % 10.0 L Mean Corpuscular Hemoglobin 33.5 H Mean Corpuscular Hemoglobin Concent 33.8 Mean Corpuscular Volume 99.1 Mean Platelet Volume 9.7 Monocytes # 1.2 H Monocytes % 12.7 H Neutrophils # 6.4 Neutrophils % 70.0 Nucleated Red Blood Cells # 0.0 Nucleated Red Blood Cells % 0.0 Platelet Count 263 Potassium Level 4.7 Red Blood Count 2.21 L Red Cell Distribution Width 12.6 Sodium Level 132 L White Blood Count 9.1 # Test 07/07/16 07:53 07/07/16 11:52 Bedside Glucose 183 209 Medications Medications Current Medications IV Flush (NS 10 ml) 10 ml PRN PRN IV FLUSH LINE; Start 06/13/16 at 19:00 Aspirin (Halfprin) 81 mg DAILY PO Last administered on 07/07/16 08:32; Admin Dose 81 MG; Start 06/14/16 at 09:00 Atorvastatin Calcium (Lipitor) 10 mg QHS PO Last administered on 07/06/16 20:28 ; Admin Dose 10 MG; Start 06/14/16 at 21:00 Cholecalciferol (Vitamin D) 400 units DAILY PO Last administered on 07/07/16 08 :31; Admin Dose 400 UNITS; Start 06/14/16 at 09:00 Ferrous Sulfate (Ferrous Sulfate (Ec)) 325 mg BID PO Last administered on 08:30; Admin Dose 325 MG; Start 06/14/16 at 09:00 Acetaminophen (Tylenol Tab) 500 mg Q4H PRN PO PAIN AND OR ELEVATED TEMP Last administered on 07/05/16 05:49; Admin Dose 500 MG; Start 06/14/16 at 00:00 Heparin Sodium (Porcine) (Heparin (5000 Units/0.5 ml)) 5,000 unit BID SC Last administered on 07/05/16 08:10; Admin Dose 5,000 UNIT; Start 06/14/16 at 09:00 Miscellaneous Information 1 ea NOTE XX Last administered on 06/18/16 07:57; Admin Dose 1 EA; Start 06/14/16 at 00:30 Glucose (Glutose) 15 gm Q15M PRN PO DECREASED GLUCOSE; Start 06/14/16 at 00:30 Glucose (Glutose) 22.5 gm Q15M PRN PO DECREASED GLUCOSE; Start 06/14/16 at 00: 30 Dextrose (D50w Syringe) 25 ml Q15M PRN IV DECREASED GLUCOSE; Start 06/14/16 at 00:30 Dextrose (D50w Syringe) 50 ml Q15M PRN IV DECREASED GLUCOSE; Start 06/14/16 at 00:30 Glucagon (Glucagen) 1 mg Q15M PRN IM DECREASED GLUCOSE; Start 06/14/16 at 00:30 Glucose (Glutose) 15 gm Q15M PRN BUCCAL DECREASED GLUCOSE; Start 06/14/16 at 00 :30 Diagnostic Test (Pha) (Accucheck) 1 ea 02 XX Last administered on 07/07/16 02: 00; Admin Dose 1 EA; Start 06/14/16 at 02:00 Amlodipine Besylate (Norvasc) 5 mg BID PO Last administered on 07/07/16 08:32; Admin Dose 5 MG; Start 06/14/16 at 13:30 Clonidine (Catapres) 0.2 mg Q8 PRN PO Systolic >160 Last administered on 02:29; Admin Dose 0.2 MG; Start 06/14/16 at 13:00 Promethazine HCl/ Codeine (Phenergan/ Codeine) 5 ml Q4H PRN PO COUGH Last administered on 06/21/16 18:04; Admin Dose 5 ML; Start 06/15/16 at 00:00 Insulin Glargine (Lantus) 14 unit QHS SC Last administered on 06/23/16 20:31; Admin Dose 14 UNIT; Start 06/15/16 at 21:00; Status Future Hold Pantoprazole (Protonix Tab) 40 mg DAILY@06 PO Last administered on 07/07/16 05: 14; Admin Dose 40 MG; Start 06/16/16 at 06:00 Diphenhydramine HCl (Benadryl) 25 mg HS PRN PO INSOMNIA Last administered on 00:54; Admin Dose 25 MG; Start 06/15/16 at 21:30 Hydralazine HCl (Apresoline) 100 mg Q8 PO Last administered on 07/07/16 15:08; Admin Dose 100 MG; Start 06/19/16 at 13:00 Bisacodyl (Dulcolax) 10 mg DAILY PRN PO CONSTIPATION Last administered on 22:38; Admin Dose 10 MG; Start 06/22/16 at 11:30 Benazepril HCl (Lotensin) 40 mg BID PO Last administered on 07/07/16 09:26; Admin Dose 40 MG; Start 06/23/16 at 21:00 Metoprolol Tartrate (Lopressor) 50 mg BID PO Last administered on 07/07/16 09: 27; Admin Dose 50 MG; Start 06/26/16 at 09:00 Hydralazine HCl (Apresoline) 20 mg Q4H PRN IV for SBP more than 170; Start at 05:00 Ondansetron HCl (Zofran Inj) 4 mg Q6H PRN IV NAUSEA AND/OR VOMITING Last administered on 07/03/16 14:45; Admin Dose 4 MG; Start 06/28/16 at 05:00 Lorazepam (Ativan) 1 mg Q6H PRN IV ANXIETY Last administered on 07/02/16 01:46 ; Admin Dose 1 MG; Start 06/28/16 at 05:00 Clonidine (Catapres) 0.1 mg QID PO Last administered on 07/07/16 12:38; Admin Dose 0.1 MG; Start 06/28/16 at 13:00 Hydromorphone HCl (Dilaudid) 0.5 mg Q4H PRN IV PAIN Last administered on 11:05; Admin Dose 0.5 MG; Start 07/01/16 at 01:30 Hydromorphone HCl (Dilaudid) 1 mg Q3 PRN IV PAIN Last administered on 07/07/16 09:30; Admin Dose 1 MG; Start 07/01/16 at 14:00 Cyclobenzaprine HCl (Flexeril) 10 mg TID PO Last administered on 07/07/16 12:31 ; Admin Dose 10 MG; Start 07/03/16 at 21:00 Clopidogrel Bisulfate (plaVIX) 75 mg DAILY PO Last administered on 07/07/16 08: 31; Admin Dose 75 MG; Start 07/05/16 at 15:00 SHERITA SCOTT Jul 07, 2016 15:47
--- NOTE | 2016-07-07 16:46 | PN ---
Date/Time of Note Date/Time of Note DATE: 07/07/16 TIME: 16:45 Assessment/Plan Lines/Catheters IV Catheter Type (from Nrsg): PICC Line Jonas in Place (from Nrsg): No Assessment/Plan Chief Complaint/Hosp Course IMPRESSION: Bilateral pleural effusions status post thoracentesis with much improvement. SP VATS Decortication CT [address] sxn Problems: Subjective 24 Hr Interval Summary Constitutional: improved Pain Control: mild Exam/Review of Systems Vital Signs Vitals Vital Signs Date Time Temp Pulse Resp B/P Pulse Ox O2 Delivery O2 Flow Rate FiO2 07/07/16 16:25 69 07/07/16 12:27 98.0 18 144/49 98 07/07/16 11:19 Nasal Cannula 3.0 07/05/16 21:48 21 Intake and Output 07/06/16 07/06/16 07/07/16 15:00 23:00 07:00 Intake Total 800 ml 480 ml Output Total 250 ml 250 ml Balance 550 ml 230 ml Exam ENMT: mucosa pink and moist, nl external ears & nose, nl lips & teeth, nl nasal mucosa & septum Neck: non-tender, supple Respiratory: clear to auscultation, normal air movement Cardiovascular: nl pulses, regular rate and rhythm Results Result Diagram: 07/07/16 0610 07/07/16 0610 LILIA FELIZ MD Jul 07, 2016 16:45
--- NOTE | 2016-07-07 20:52 | CONS ---
Date/Time of Note Date/Time of Note DATE: 07/07/16 TIME: 20:51 Assessment/Plan Assessment/Plan Chief Complaint/Hosp Course ESRD HTN PNEUMONIA better PLEURAL EFFUSION s/p vats hyperkalemia HX TB GOLD TEST +r/o ptb PLAN PER CARDIO NON COMPLIANCE W HD hd refused hd 3 x wk HD T/THURSDAY PT REFUSED HD ON THURSDAY per pcp fluid res bp meds PER SURGERY per id Problems: Consultation Date/Type/Reason Admit Date/Time Jun 13, 2016 at 14:48 Type of Consultation: renal Referring Provider: EVA COX MD 24 HR Interval Summary Constitutional: No chills, No diaphoresis Exam/Review of Systems Vital Signs Vitals Vital Signs Date Time Temp Pulse Resp B/P Pulse Ox O2 Delivery O2 Flow Rate FiO2 07/07/16 19:00 98.8 70 18 149/60 93 07/07/16 11:19 Nasal Cannula 3.0 07/05/16 21:48 21 Intake and Output 07/06/16 07/06/16 07/07/16 15:00 23:00 07:00 Intake Total 800 ml 480 ml Output Total 250 ml 250 ml Balance 550 ml 230 ml Exam Respiratory: diminished breath sounds Cardiovascular: regular rate and rhythm Gastrointestinal: soft Musculoskeletal: nl extremities to inspection Extremities: normal pulses Results Result Diagram: 07/07/16 0610 07/07/16 0610 Results 24 hrs Laboratory Tests Test 07/07/16 05:13 07/07/16 06:10 07/07/16 07:53 07/07/16 11:52 Bedside Glucose 175 183 209 Anion Gap 13 Basophils # 0.1 Basophils % 0.8 Blood Urea Nitrogen 52 H Calcium Level 9.4 Carbon Dioxide Level 30 Chloride Level 94 L Creatinine 7.39 H Eosinophils # 0.5 Eosinophils % 5.9 Glucose Level 168 Hematocrit 21.9 L Hemoglobin 7.4 L Lymphocytes # 0.9 Lymphocytes % 10.0 L Mean Corpuscular Hemoglobin 33.5 H Mean Corpuscular Hemoglobin Concent 33.8 Mean Corpuscular Volume 99.1 Mean Platelet Volume 9.7 Monocytes # 1.2 H Monocytes % 12.7 H Neutrophils # 6.4 Neutrophils % 70.0 Nucleated Red Blood Cells # 0.0 Nucleated Red Blood Cells % 0.0 Platelet Count 263 Potassium Level 4.7 Red Blood Count 2.21 L Red Cell Distribution Width 12.6 Sodium Level 132 L White Blood Count 9.1 # Test 07/07/16 16:42 Bedside Glucose 219 Medications Medications Current Medications IV Flush (NS 10 ml) 10 ml PRN PRN IV FLUSH LINE; Start 06/13/16 at 19:00 Aspirin (Halfprin) 81 mg DAILY PO Last administered on 07/07/16 08:32; Admin Dose 81 MG; Start 06/14/16 at 09:00 Atorvastatin Calcium (Lipitor) 10 mg QHS PO Last administered on 07/06/16 20:28 ; Admin Dose 10 MG; Start 06/14/16 at 21:00 Cholecalciferol (Vitamin D) 400 units DAILY PO Last administered on 07/07/16 08 :31; Admin Dose 400 UNITS; Start 06/14/16 at 09:00 Ferrous Sulfate (Ferrous Sulfate (Ec)) 325 mg BID PO Last administered on 08:30; Admin Dose 325 MG; Start 06/14/16 at 09:00 Acetaminophen (Tylenol Tab) 500 mg Q4H PRN PO PAIN AND OR ELEVATED TEMP Last administered on 07/05/16 05:49; Admin Dose 500 MG; Start 06/14/16 at 00:00 Heparin Sodium (Porcine) (Heparin (5000 Units/0.5 ml)) 5,000 unit BID SC Last administered on 07/05/16 08:10; Admin Dose 5,000 UNIT; Start 06/14/16 at 09:00 Miscellaneous Information 1 ea NOTE XX Last administered on 06/18/16 07:57; Admin Dose 1 EA; Start 06/14/16 at 00:30 Glucose (Glutose) 15 gm Q15M PRN PO DECREASED GLUCOSE; Start 06/14/16 at 00:30 Glucose (Glutose) 22.5 gm Q15M PRN PO DECREASED GLUCOSE; Start 06/14/16 at 00: 30 Dextrose (D50w Syringe) 25 ml Q15M PRN IV DECREASED GLUCOSE; Start 06/14/16 at 00:30 Dextrose (D50w Syringe) 50 ml Q15M PRN IV DECREASED GLUCOSE; Start 06/14/16 at 00:30 Glucagon (Glucagen) 1 mg Q15M PRN IM DECREASED GLUCOSE; Start 06/14/16 at 00:30 Glucose (Glutose) 15 gm Q15M PRN BUCCAL DECREASED GLUCOSE; Start 06/14/16 at 00 :30 Diagnostic Test (Pha) (Accucheck) 1 ea 02 XX Last administered on 07/07/16 02: 00; Admin Dose 1 EA; Start 06/14/16 at 02:00 Amlodipine Besylate (Norvasc) 5 mg BID PO Last administered on 07/07/16 08:32; Admin Dose 5 MG; Start 06/14/16 at 13:30 Clonidine (Catapres) 0.2 mg Q8 PRN PO Systolic >160 Last administered on 02:29; Admin Dose 0.2 MG; Start 06/14/16 at 13:00 Promethazine HCl/ Codeine (Phenergan/ Codeine) 5 ml Q4H PRN PO COUGH Last administered on 06/21/16 18:04; Admin Dose 5 ML; Start 06/15/16 at 00:00 Insulin Glargine (Lantus) 14 unit QHS SC Last administered on 06/23/16 20:31; Admin Dose 14 UNIT; Start 06/15/16 at 21:00; Status Future Hold Pantoprazole (Protonix Tab) 40 mg DAILY@06 PO Last administered on 07/07/16 05: 14; Admin Dose 40 MG; Start 06/16/16 at 06:00 Diphenhydramine HCl (Benadryl) 25 mg HS PRN PO INSOMNIA Last administered on 00:54; Admin Dose 25 MG; Start 06/15/16 at 21:30 Hydralazine HCl (Apresoline) 100 mg Q8 PO Last administered on 07/07/16 15:08; Admin Dose 100 MG; Start 06/19/16 at 13:00 Bisacodyl (Dulcolax) 10 mg DAILY PRN PO CONSTIPATION Last administered on 22:38; Admin Dose 10 MG; Start 06/22/16 at 11:30 Benazepril HCl (Lotensin) 40 mg BID PO Last administered on 07/07/16 09:26; Admin Dose 40 MG; Start 06/23/16 at 21:00 Metoprolol Tartrate (Lopressor) 50 mg BID PO Last administered on 07/07/16 09: 27; Admin Dose 50 MG; Start 06/26/16 at 09:00 Hydralazine HCl (Apresoline) 20 mg Q4H PRN IV for SBP more than 170; Start at 05:00 Ondansetron HCl (Zofran Inj) 4 mg Q6H PRN IV NAUSEA AND/OR VOMITING Last administered on 07/03/16 14:45; Admin Dose 4 MG; Start 06/28/16 at 05:00 Lorazepam (Ativan) 1 mg Q6H PRN IV ANXIETY Last administered on 07/02/16 01:46 ; Admin Dose 1 MG; Start 06/28/16 at 05:00 Clonidine (Catapres) 0.1 mg QID PO Last administered on 07/07/16 17:37; Admin Dose 0.1 MG; Start 06/28/16 at 13:00 Hydromorphone HCl (Dilaudid) 0.5 mg Q4H PRN IV PAIN Last administered on 11:05; Admin Dose 0.5 MG; Start 07/01/16 at 01:30 Hydromorphone HCl (Dilaudid) 1 mg Q3 PRN IV PAIN Last administered on 07/07/16 09:30; Admin Dose 1 MG; Start 07/01/16 at 14:00 Cyclobenzaprine HCl (Flexeril) 10 mg TID PO Last administered on 07/07/16 12:31 ; Admin Dose 10 MG; Start 07/03/16 at 21:00 Clopidogrel Bisulfate (plaVIX) 75 mg DAILY PO Last administered on 07/07/16 08: 31; Admin Dose 75 MG; Start 07/05/16 at 15:00 PAOLA MOODY MD Jul 07, 2016 20:52
[2016-07-07] MEDS: ATORVASTATIN 10 MG TAB PO SCH (21:21)
[2016-07-07] MEDS ORDERED: HYDROmorphONE 1 MG/ML SYG IV PRN (22:00)
[2016-07-08] VITALS (17 sets, daily range): BP systolic 112–163; BP diastolic 51–79; PULSE 68–74; RESP 16–18
[2016-07-08] MEDS: ACCU-CHEK XX SCH ×5 (02:00→20:41)
[2016-07-08] MEDS: PANTOPRAZOLE (EC) 40 MG TAB PO SCH (06:48)
[2016-07-08 07:07] LABS: ADD SCAN DIFF NO
[2016-07-08 07:15] LABS: ABNORMAL IP MESSAGE 1; BASOPHIL # 0.1 10^3/ul (0.0-0.1); BASOPHILS % 0.5 % (0.0-2.0); EOSINOPHILS # 0.7 10^3/ul (0.0-0.5); HEMATOCRIT 17.9 % (42.0-52.0); LYMPHOCYTES # 1.1 10^3/ul (0.8-2.9); LYMPHOCYTES % 10.7 % (15.0-51.0); MEAN CORPUSCULAR HEMOGLOBIN 32.4 pg (29.0-33.0); MEAN CORPUSCULAR VOLUME 98.4 fl (82.0-101.0); MEAN PLATELET VOLUME 9.6 fl (7.4-10.4); MONOCYTE # 1.1 10^3/ul (0.3-0.9); MONOCYTES % 11.2 % (0.0-11.0); NEUTROPHILS % 70.1 % (39.0-77.0); PLATELET COUNT 310 10^3/UL (140-415); RED BLOOD COUNT 1.82 10^6/ul (4.70-6.10); RED CELL DISTRIBUTION WIDTH 12.5 % (11.5-14.5); WHITE BLOOD COUNT 9.9 10^3/ul (4.8-10.8)
[2016-07-08 07:28] LABS: HEMOGLOBIN 5.9 g/dl (14.0-18.0); POTASSIUM 4.8 mmol/L (3.5-5.1)
[2016-07-08 07:30] LABS: CREATININE 8.2 mg/dl (0.61-1.24)
[2016-07-08 07:31] LABS: CALCIUM 9.7 mg/dl (8.4-10.2)
[2016-07-08] MEDS: AMLODIPINE 5 MG TAB PO SCH ×3 (09:00→20:39)
[2016-07-08] MEDS: METOPROLOL 25 MG TAB PO SCH ×3 (09:00→20:40)
[2016-07-08] MEDS: BENAZEPRIL 40 MG TAB PO SCH ×2 (09:00→20:40)
[2016-07-08] MEDS: HYDROmorphONE 1 MG/ML SYG IV PRN ×2 (09:05→20:39)
[2016-07-08] MEDS: SEVELAMER CARBONATE 0.8 GM PKT PO SCH ×3 (09:08→17:27)
[2016-07-08] MEDS: CLOPIDOGREL 75 MG TAB PO SCH (09:09)
[2016-07-08] MEDS: FERROUS SULFATE (EC) 325 MG TAB PO SCH ×2 (09:09→20:39)
[2016-07-08] MEDS: CYCLOBENZAPRINE 10 MG TAB PO SCH ×3 (09:09→20:40)
[2016-07-08] MEDS: CHOLECALCIFEROL 400 UNITS TAB PO SCH (09:09)
[2016-07-08] MEDS: CALCIUM ACETATE 667 MG CAP PO SCH ×3 (09:09→17:27)
[2016-07-08] MEDS: ASPIRIN (EC) 81 MG TAB PO SCH (09:09)
[2016-07-08] MEDS: LEVALBUTEROL (HFA) 15 GM INHALER INH SCH ×3 (09:11→16:46)
[2016-07-08] MEDS: INSULIN ASPART [NOVOLOG] 3 ML PEN SC SCH ×4 (09:22→20:40)
[2016-07-08] MEDS: HEPARIN 5,000 UNIT/0.5 ML SYG SC SCH (09:22)
--- NOTE | 2016-07-08 17:22 | PN ---
DATE: 07/08/2016 SUBJECTIVE: This is a followup note. This patient remains stable, no new events. Chest tube drain ed approximately 50 mL following decortication. Vital signs remain stable. Exam remains unchanged. LABORATORY DATA: White count 9.9, hemoglobin 5.9, platelets of 310. Chemistry: BUN 58, creatinine 8.2. IMPRESSION AND PLAN: 1. Loculated pleural effusion, status post decortication. Currently being ruled out for Mycobacter ium avium, most recently has had 3 negative sputum studies. We will discuss with ID regarding treat ment. 2. Significant anemia. Would recommend repeat check hemoglobin prior to possible transfusion. 3. End-stage renal failure. Continue hemodialysis as tolerated. Dictated By: MATILDE DEWEY MD SV/MANJIT Conf#: [id number] DID#: [id number]
--- NOTE | 2016-07-08 18:57 | CONS ---
Date/Time of Note Date/Time of Note DATE: 07/08/16 TIME: 18:53 Assessment/Plan Assessment/Plan Chief Complaint/Hosp Course IMPRESSION: 1. Abnormal electrocardiogram, assess for acute coronary syndrome.-negative troponin x 3 2. History of recent negative stress, May 2015. 3. History of percutaneous transluminal coronary angioplasty and stent placement in 2014 to the left main left anterior descending. No current chest pain. 4. Hypertension, mildly elevated. 5. History of dyslipidemia. 6. Pleural effusion, status post thoracentesis. 7. Possible pneumonia/cough-improved 8. Diabetes mellitus. 9. End-stage renal disease, on hemodialysis. 10. Had WCT-06/27 which was paced beats at approx 100. NO recurrence since .MAC infection/colonization? RECOMMENDATIONS: -Tele -Continue metoprolol -Continue Benazepril -Continue norvasc/hydralazine -Continue asa/statin/plavix -Consider abx's and f/u cx data -Follow volume status with HD for volume removal -Follow CT output closely -Ongoing TB rule out Problems: Consultation Date/Type/Reason Admit Date/Time Jun 13, 2016 at 14:48 Initial Consult Date 06/14/2016 Type of Consultation: Cardiology Reason for Consultation abnl ecg Referring Provider: EVA COX MD Exam/Review of Systems Vital Signs Vitals Vital Signs Date Time Temp Pulse Resp B/P Pulse Ox O2 Delivery O2 Flow Rate FiO2 07/08/16 16:41 97.9 79 17 132/79 97 07/08/16 10:39 Nasal Cannula 3.0 07/07/16 21:28 21 Intake and Output 07/07/16 07/07/16 07/08/16 15:00 23:00 07:00 Intake Total 800 ml 700 ml Output Total 220 ml 250 ml Balance 580 ml 450 ml Exam Review of Systems: CONSTITUTIONAL: No fevers, chills. PULMONARY: No sob CARDIOVASCULAR: No chest pain/palpitations GASTROINTESTINAL: No nausea/vomiting. GENITOURINARY: No hematuria/dysuria. MUSCULOSKELETAL: No myagias/arthalgias. PSYCHIATRIC: The patient denies depression. NEUROLOGIC: No weakness Constitutional: alert Psych: no complaints Head: normocephalic ENMT: mucosa pink and moist Neck: jvd (9 cm water), supple Respiratory: diminished breath sounds (R>L), other (CT in place) Cardiovascular: regular rate and rhythm Gastrointestinal: non-tender, soft Musculoskeletal: muscle tone (normal) Extremities: edema (none) Neurological: other (No focal deficits) Results Result Diagram: 07/08/1637 07/08/16 0637 Results 24 hrs Laboratory Tests Test 07/07/16 21:23 07/08/16 06:37 07/08/16 07:50 07/08/16 11:45 Bedside Glucose 207 179 246 H Anion Gap 16 Basophils # 0.1 Basophils % 0.5 Blood Urea Nitrogen 58 H Calcium Level 9.7 Carbon Dioxide Level 28 Chloride Level 92 L Creatinine 8.20 H Eosinophils # 0.7 H Eosinophils % 7.0 Glucose Level 158 Hematocrit 17.9 L Hemoglobin 5.9 #*L Lymphocytes # 1.1 Lymphocytes % 10.7 L Mean Corpuscular Hemoglobin 32.4 Mean Corpuscular Hemoglobin Concent 33.0 Mean Corpuscular Volume 98.4 Mean Platelet Volume 9.6 Monocytes # 1.1 H Monocytes % 11.2 H Neutrophils # 7.0 Neutrophils % 70.1 Nucleated Red Blood Cells # 0.0 Nucleated Red Blood Cells % 0.0 Platelet Count 310 Potassium Level 4.8 Red Blood Count 1.82 L Red Cell Distribution Width 12.5 Sodium Level 131 L White Blood Count 9.9 Test 07/08/16 16:49 Bedside Glucose 193 Medications Medications Current Medications IV Flush (NS 10 ml) 10 ml PRN PRN IV FLUSH LINE; Start 06/13/16 at 19:00 Aspirin (Halfprin) 81 mg DAILY PO Last administered on 07/08/16 09:09; Admin Dose 81 MG; Start 06/14/16 at 09:00 Atorvastatin Calcium (Lipitor) 10 mg QHS PO Last administered on 07/07/16 21:21 ; Admin Dose 10 MG; Start 06/14/16 at 21:00 Cholecalciferol (Vitamin D) 400 units DAILY PO Last administered on 07/08/16 09 :09; Admin Dose 400 UNITS; Start 06/14/16 at 09:00 Ferrous Sulfate (Ferrous Sulfate (Ec)) 325 mg BID PO Last administered on 09:09; Admin Dose 325 MG; Start 06/14/16 at 09:00 Acetaminophen (Tylenol Tab) 500 mg Q4H PRN PO PAIN AND OR ELEVATED TEMP Last administered on 07/05/16 05:49; Admin Dose 500 MG; Start 06/14/16 at 00:00 Heparin Sodium (Porcine) (Heparin (5000 Units/0.5 ml)) 5,000 unit BID SC Last administered on 07/08/16 09:22; Admin Dose 5,000 UNIT; Start 06/14/16 at 09:00 Miscellaneous Information 1 ea NOTE XX Last administered on 06/18/16 07:57; Admin Dose 1 EA; Start 06/14/16 at 00:30 Glucose (Glutose) 15 gm Q15M PRN PO DECREASED GLUCOSE; Start 06/14/16 at 00:30 Glucose (Glutose) 22.5 gm Q15M PRN PO DECREASED GLUCOSE; Start 06/14/16 at 00: 30 Dextrose (D50w Syringe) 25 ml Q15M PRN IV DECREASED GLUCOSE; Start 06/14/16 at 00:30 Dextrose (D50w Syringe) 50 ml Q15M PRN IV DECREASED GLUCOSE; Start 06/14/16 at 00:30 Glucagon (Glucagen) 1 mg Q15M PRN IM DECREASED GLUCOSE; Start 06/14/16 at 00:30 Glucose (Glutose) 15 gm Q15M PRN BUCCAL DECREASED GLUCOSE; Start 06/14/16 at 00 :30 Diagnostic Test (Pha) (Accucheck) 1 ea 02 XX Last administered on 07/07/16 02: 00; Admin Dose 1 EA; Start 06/14/16 at 02:00 Amlodipine Besylate (Norvasc) 5 mg BID PO Last administered on 07/08/16 13:03; Admin Dose 5 MG; Start 06/14/16 at 13:30 Clonidine (Catapres) 0.2 mg Q8 PRN PO Systolic >160 Last administered on 02:29; Admin Dose 0.2 MG; Start 06/14/16 at 13:00 Promethazine HCl/ Codeine (Phenergan/ Codeine) 5 ml Q4H PRN PO COUGH Last administered on 06/21/16 18:04; Admin Dose 5 ML; Start 06/15/16 at 00:00 Insulin Glargine (Lantus) 14 unit QHS SC Last administered on 06/23/16 20:31; Admin Dose 14 UNIT; Start 06/15/16 at 21:00; Status Future Hold Pantoprazole (Protonix Tab) 40 mg DAILY@06 PO Last administered on 07/08/16 06: 48; Admin Dose 40 MG; Start 06/16/16 at 06:00 Diphenhydramine HCl (Benadryl) 25 mg HS PRN PO INSOMNIA Last administered on 00:54; Admin Dose 25 MG; Start 06/15/16 at 21:30 Hydralazine HCl (Apresoline) 100 mg Q8 PO Last administered on 07/08/16 14:52; Admin Dose 100 MG; Start 06/19/16 at 13:00 Bisacodyl (Dulcolax) 10 mg DAILY PRN PO CONSTIPATION Last administered on 22:38; Admin Dose 10 MG; Start 06/22/16 at 11:30 Benazepril HCl (Lotensin) 40 mg BID PO Last administered on 07/07/16 21:20; Admin Dose 40 MG; Start 06/23/16 at 21:00 Metoprolol Tartrate (Lopressor) 50 mg BID PO Last administered on 07/08/16 13: 03; Admin Dose 50 MG; Start 06/26/16 at 09:00 Hydralazine HCl (Apresoline) 20 mg Q4H PRN IV for SBP more than 170; Start at 05:00 Ondansetron HCl (Zofran Inj) 4 mg Q6H PRN IV NAUSEA AND/OR VOMITING Last administered on 07/03/16 14:45; Admin Dose 4 MG; Start 06/28/16 at 05:00 Lorazepam (Ativan) 1 mg Q6H PRN IV ANXIETY Last administered on 07/02/16 01:46 ; Admin Dose 1 MG; Start 06/28/16 at 05:00 Clonidine (Catapres) 0.1 mg QID PO Last administered on 07/08/16 16:47; Admin Dose 0.1 MG; Start 06/28/16 at 13:00 Cyclobenzaprine HCl (Flexeril) 10 mg TID PO Last administered on 07/08/16 13:02 ; Admin Dose 10 MG; Start 07/03/16 at 21:00 Clopidogrel Bisulfate (plaVIX) 75 mg DAILY PO Last administered on 07/08/16 09: 09; Admin Dose 75 MG; Start 07/05/16 at 15:00 Hydromorphone HCl (Dilaudid) 0.5 mg Q4H PRN IV PAIN; Start 07/07/16 at 22:00 Hydromorphone HCl (Dilaudid) 1 mg Q3H PRN IV PAIN Last administered on 09:05; Admin Dose 1 MG; Start 07/07/16 at 22:00 SHERITA SCOTT Jul 08, 2016 18:57
[2016-07-08] MEDS ORDERED: SOD CHLORIDE 0.9% 250 ML IV* ONE (19:20)
--- NOTE | 2016-07-08 19:20 | PN ---
Date/Time of Note Date/Time of Note DATE: 07/08/16 TIME: 19:15 Assessment/Plan VTE Prophylaxis VTE Prophylaxis Intervention: SCD's Lines/Catheters IV Catheter Type (from [facility]): PICC Line Central line still needed: Yes Urinary Cath still in place: No Assessment/Plan Chief Complaint/Hosp Course Assessment and plan - Recurrent pleural effusions. Dr. Martinez is following in thoracic surgery consultation. S/p VATS 06/30. Follow-up on intraoperative cultures. Dr. Carl is following in infectious disease consultation. - Right pleural effusion, status post thoracentesis. Dr. Dale is following in pulmonology consultation. - End-stage renal disease, continue hemodialysis. Dr. Saunders is following in nephrology consultation. - Diabetes mellitus type 2, continue Lantus and NovoLog - Hypertension. Dr. De Santiago is following and cardiology consultation. - Coronary artery disease, status post coronary artery bypass graft. - Permanent pacemaker. No acute issues. - Dyslipidemia. Continue Lipitor. - Anemia, pending blood transfusion. Hold heparin, obtain stool for OB. Continue heparin for deep venous thrombosis prophylaxis and Protonix for peptic ulcer disease prophylaxis. Further recommendations based on clinical course. Plan of care discussed with Dr. Price. Problems: Subjective 24 Hr Interval Summary Free Text/Dictation Patient looks pale, hemoglobin is 5.9, will transfuse 2 units of packed red blood cells stat, she denies shortness of breath denies chest pain, chest tube was some serosanguineous drainage. Exam/Review of Systems Vital Signs Vitals Vital Signs Date Time Temp Pulse Resp B/P Pulse Ox O2 Delivery O2 Flow Rate FiO2 07/08/16 16:41 97.9 79 17 132/79 97 07/08/16 10:39 Nasal Cannula 3.0 07/07/16 21:28 21 Intake and Output 07/07/16 07/07/16 07/08/16 15:00 23:00 07:00 Intake Total 800 ml 700 ml Output Total 220 ml 250 ml Balance 580 ml 450 ml Exam Constitutional: alert Psych: no complaints Head: atraumatic, normocephalic Eyes: nl conjunctiva ENMT: nl external ears & nose Neck: non-tender, supple Respiratory: clear to auscultation, R chest tube Cardiovascular: nl pulses Gastrointestinal: non-tender, soft Musculoskeletal: nl extremities to inspection Extremities: normal pulses Neurological: [employer] II-XII intact Skin: nl turgor Results Result Diagram: 07/08/1663607/08/16636 Results 24 hrs Laboratory Tests Test 07/07/16 21:23 07/08/16 06:37 07/08/16 07:50 07/08/16 11:45 Bedside Glucose 207 179 246 H Anion Gap 16 Basophils # 0.1 Basophils % 0.5 Blood Urea Nitrogen 58 H Calcium Level 9.7 Carbon Dioxide Level 28 Chloride Level 92 L Creatinine 8.20 H Eosinophils # 0.7 H Eosinophils % 7.0 Glucose Level 158 Hematocrit 17.9 L Hemoglobin 5.9 #*L Lymphocytes # 1.1 Lymphocytes % 10.7 L Mean Corpuscular Hemoglobin 32.4 Mean Corpuscular Hemoglobin Concent 33.0 Mean Corpuscular Volume 98.4 Mean Platelet Volume 9.6 Monocytes # 1.1 H Monocytes % 11.2 H Neutrophils # 7.0 Neutrophils % 70.1 Nucleated Red Blood Cells # 0.0 Nucleated Red Blood Cells % 0.0 Platelet Count 310 Potassium Level 4.8 Red Blood Count 1.82 L Red Cell Distribution Width 12.5 Sodium Level 131 L White Blood Count 9.9 Test 07/08/16 16:49 Bedside Glucose 193 Medications Medications Current Medications IV Flush (NS 10 ml) 10 ml PRN PRN IV FLUSH LINE; Start 06/13/16 at 19:00 Aspirin (Halfprin) 81 mg DAILY PO Last administered on 07/08/16 09:09; Admin Dose 81 MG; Start 06/14/16 at 09:00 Atorvastatin Calcium (Lipitor) 10 mg QHS PO Last administered on 07/07/16 21:21 ; Admin Dose 10 MG; Start 06/14/16 at 21:00 Cholecalciferol (Vitamin D) 400 units DAILY PO Last administered on 07/08/16 09 :09; Admin Dose 400 UNITS; Start 06/14/16 at 09:00 Ferrous Sulfate (Ferrous Sulfate (Ec)) 325 mg BID PO Last administered on 09:09; Admin Dose 325 MG; Start 06/14/16 at 09:00 Acetaminophen (Tylenol Tab) 500 mg Q4H PRN PO PAIN AND OR ELEVATED TEMP Last administered on 07/05/16 05:49; Admin Dose 500 MG; Start 06/14/16 at 00:00 Heparin Sodium (Porcine) (Heparin (5000 Units/0.5 ml)) 5,000 unit BID SC Last administered on 07/08/16 09:22; Admin Dose 5,000 UNIT; Start 06/14/16 at 09:00 Miscellaneous Information 1 ea NOTE XX Last administered on 06/18/16 07:57; Admin Dose 1 EA; Start 06/14/16 at 00:30 Glucose (Glutose) 15 gm Q15M PRN PO DECREASED GLUCOSE; Start 06/14/16 at 00:30 Glucose (Glutose) 22.5 gm Q15M PRN PO DECREASED GLUCOSE; Start 06/14/16 at 00: 30 Dextrose (D50w Syringe) 25 ml Q15M PRN IV DECREASED GLUCOSE; Start 06/14/16 at 00:30 Dextrose (D50w Syringe) 50 ml Q15M PRN IV DECREASED GLUCOSE; Start 06/14/16 at 00:30 Glucagon (Glucagen) 1 mg Q15M PRN IM DECREASED GLUCOSE; Start 06/14/16 at 00:30 Glucose (Glutose) 15 gm Q15M PRN BUCCAL DECREASED GLUCOSE; Start 06/14/16 at 00 :30 Diagnostic Test (Pha) (Accucheck) 1 ea 02 XX Last administered on 07/07/16 02: 00; Admin Dose 1 EA; Start 06/14/16 at 02:00 Amlodipine Besylate (Norvasc) 5 mg BID PO Last administered on 07/08/16 13:03; Admin Dose 5 MG; Start 06/14/16 at 13:30 Clonidine (Catapres) 0.2 mg Q8 PRN PO Systolic >160 Last administered on 02:29; Admin Dose 0.2 MG; Start 06/14/16 at 13:00 Promethazine HCl/ Codeine (Phenergan/ Codeine) 5 ml Q4H PRN PO COUGH Last administered on 06/21/16 18:04; Admin Dose 5 ML; Start 06/15/16 at 00:00 Insulin Glargine (Lantus) 14 unit QHS SC Last administered on 06/23/16 20:31; Admin Dose 14 UNIT; Start 06/15/16 at 21:00; Status Future Hold Pantoprazole (Protonix Tab) 40 mg DAILY@06 PO Last administered on 07/08/16 06: 48; Admin Dose 40 MG; Start 06/16/16 at 06:00 Diphenhydramine HCl (Benadryl) 25 mg HS PRN PO INSOMNIA Last administered on 00:54; Admin Dose 25 MG; Start 06/15/16 at 21:30 Hydralazine HCl (Apresoline) 100 mg Q8 PO Last administered on 07/08/16 14:52; Admin Dose 100 MG; Start 06/19/16 at 13:00 Bisacodyl (Dulcolax) 10 mg DAILY PRN PO CONSTIPATION Last administered on 22:38; Admin Dose 10 MG; Start 06/22/16 at 11:30 Benazepril HCl (Lotensin) 40 mg BID PO Last administered on 07/07/16 21:20; Admin Dose 40 MG; Start 06/23/16 at 21:00 Metoprolol Tartrate (Lopressor) 50 mg BID PO Last administered on 07/08/16 13: 03; Admin Dose 50 MG; Start 06/26/16 at 09:00 Hydralazine HCl (Apresoline) 20 mg Q4H PRN IV for SBP more than 170; Start at 05:00 Ondansetron HCl (Zofran Inj) 4 mg Q6H PRN IV NAUSEA AND/OR VOMITING Last administered on 07/03/16 14:45; Admin Dose 4 MG; Start 06/28/16 at 05:00 Lorazepam (Ativan) 1 mg Q6H PRN IV ANXIETY Last administered on 07/02/16 01:46 ; Admin Dose 1 MG; Start 06/28/16 at 05:00 Clonidine (Catapres) 0.1 mg QID PO Last administered on 07/08/16 16:47; Admin Dose 0.1 MG; Start 06/28/16 at 13:00 Cyclobenzaprine HCl (Flexeril) 10 mg TID PO Last administered on 07/08/16 13:02 ; Admin Dose 10 MG; Start 07/03/16 at 21:00 Clopidogrel Bisulfate (plaVIX) 75 mg DAILY PO Last administered on 07/08/16 09: 09; Admin Dose 75 MG; Start 07/05/16 at 15:00 Hydromorphone HCl (Dilaudid) 0.5 mg Q4H PRN IV PAIN; Start 07/07/16 at 22:00 Hydromorphone HCl (Dilaudid) 1 mg Q3H PRN IV PAIN Last administered on 09:05; Admin Dose 1 MG; Start 07/07/16 at 22:00 CECILIA DAMICO Jul 08, 2016 19:20
[2016-07-08] MEDS: ATORVASTATIN 10 MG TAB PO SCH (20:39)
--- NOTE | 2016-07-08 21:01 | CONS ---
Date/Time of Note Date/Time of Note DATE: 07/08/16 TIME: 20:59 Assessment/Plan Assessment/Plan Chief Complaint/Hosp Course ESRD HTN PNEUMONIA better PLEURAL EFFUSION s/p vats hyperkalemia HX TB GOLD TEST +r/o ptb ANEMIA PLAN PER CARDIO NON COMPLIANCE W HD hd refused hd 3 x wk HD T/THURSDAY PT REFUSED HD ON THURSDAY per pcp fluid res prbc PER SURGERY per id Problems: Consultation Date/Type/Reason Admit Date/Time Jun 13, 2016 at 14:48 Type of Consultation: renal Referring Provider: EVA COX MD 24 HR Interval Summary Constitutional: no complaints Exam/Review of Systems Vital Signs Vitals Vital Signs Date Time Temp Pulse Resp B/P Pulse Ox O2 Delivery O2 Flow Rate FiO2 07/08/16 20:44 69 07/08/16 16:41 97.9 17 132/79 97 07/08/16 10:39 Nasal Cannula 3.0 07/07/16 21:28 21 Intake and Output 07/07/16 07/07/16 07/08/16 15:00 23:00 07:00 Intake Total 800 ml 700 ml Output Total 220 ml 250 ml Balance 580 ml 450 ml Exam Neck: supple Respiratory: clear to auscultation, No diminished breath sounds, No intercostal retraction, No labored breathing Cardiovascular: regular rate and rhythm Gastrointestinal: soft Results Result Diagram: 07/08/16 0637 07/08/16 0637 Results 24 hrs Laboratory Tests Test 07/07/16 21:23 07/08/16 06:37 07/08/16 07:50 07/08/16 11:45 Bedside Glucose 207 179 246 H Anion Gap 16 Basophils # 0.1 Basophils % 0.5 Blood Urea Nitrogen 58 H Calcium Level 9.7 Carbon Dioxide Level 28 Chloride Level 92 L Creatinine 8.20 H Eosinophils # 0.7 H Eosinophils % 7.0 Glucose Level 158 Hematocrit 17.9 L Hemoglobin 5.9 #*L Lymphocytes # 1.1 Lymphocytes % 10.7 L Mean Corpuscular Hemoglobin 32.4 Mean Corpuscular Hemoglobin Concent 33.0 Mean Corpuscular Volume 98.4 Mean Platelet Volume 9.6 Monocytes # 1.1 H Monocytes % 11.2 H Neutrophils # 7.0 Neutrophils % 70.1 Nucleated Red Blood Cells # 0.0 Nucleated Red Blood Cells % 0.0 Platelet Count 310 Potassium Level 4.8 Red Blood Count 1.82 L Red Cell Distribution Width 12.5 Sodium Level 131 L White Blood Count 9.9 Test 07/08/16 16:49 07/08/16 20:35 Bedside Glucose 193 145 Medications Medications Current Medications IV Flush (NS 10 ml) 10 ml PRN PRN IV FLUSH LINE; Start 06/13/16 at 19:00 Aspirin (Halfprin) 81 mg DAILY PO Last administered on 07/08/16 09:09; Admin Dose 81 MG; Start 06/14/16 at 09:00 Atorvastatin Calcium (Lipitor) 10 mg QHS PO Last administered on 07/08/16 20:39 ; Admin Dose 10 MG; Start 06/14/16 at 21:00 Cholecalciferol (Vitamin D) 400 units DAILY PO Last administered on 07/08/16 09 :09; Admin Dose 400 UNITS; Start 06/14/16 at 09:00 Ferrous Sulfate (Ferrous Sulfate (Ec)) 325 mg BID PO Last administered on 20:39; Admin Dose 325 MG; Start 06/14/16 at 09:00 Acetaminophen (Tylenol Tab) 500 mg Q4H PRN PO PAIN AND OR ELEVATED TEMP Last administered on 07/05/16 05:49; Admin Dose 500 MG; Start 06/14/16 at 00:00 Miscellaneous Information 1 ea NOTE XX Last administered on 06/18/16 07:57; Admin Dose 1 EA; Start 06/14/16 at 00:30 Glucose (Glutose) 15 gm Q15M PRN PO DECREASED GLUCOSE; Start 06/14/16 at 00:30 Glucose (Glutose) 22.5 gm Q15M PRN PO DECREASED GLUCOSE; Start 06/14/16 at 00: 30 Dextrose (D50w Syringe) 25 ml Q15M PRN IV DECREASED GLUCOSE; Start 06/14/16 at 00:30 Dextrose (D50w Syringe) 50 ml Q15M PRN IV DECREASED GLUCOSE; Start 06/14/16 at 00:30 Glucagon (Glucagen) 1 mg Q15M PRN IM DECREASED GLUCOSE; Start 06/14/16 at 00:30 Glucose (Glutose) 15 gm Q15M PRN BUCCAL DECREASED GLUCOSE; Start 06/14/16 at 00 :30 Diagnostic Test (Pha) (Accucheck) 1 ea 02 XX Last administered on 07/07/16 02: 00; Admin Dose 1 EA; Start 06/14/16 at 02:00 Amlodipine Besylate (Norvasc) 5 mg BID PO Last administered on 07/08/16 20:39; Admin Dose 5 MG; Start 06/14/16 at 13:30 Clonidine (Catapres) 0.2 mg Q8 PRN PO Systolic >160 Last administered on 02:29; Admin Dose 0.2 MG; Start 06/14/16 at 13:00 Promethazine HCl/ Codeine (Phenergan/ Codeine) 5 ml Q4H PRN PO COUGH Last administered on 06/21/16 18:04; Admin Dose 5 ML; Start 06/15/16 at 00:00 Insulin Glargine (Lantus) 14 unit QHS SC Last administered on 06/23/16 20:31; Admin Dose 14 UNIT; Start 06/15/16 at 21:00; Status Future Hold Pantoprazole (Protonix Tab) 40 mg DAILY@06 PO Last administered on 07/08/16 06: 48; Admin Dose 40 MG; Start 06/16/16 at 06:00 Diphenhydramine HCl (Benadryl) 25 mg HS PRN PO INSOMNIA Last administered on 00:54; Admin Dose 25 MG; Start 06/15/16 at 21:30 Hydralazine HCl (Apresoline) 100 mg Q8 PO Last administered on 07/08/16 14:52; Admin Dose 100 MG; Start 06/19/16 at 13:00 Bisacodyl (Dulcolax) 10 mg DAILY PRN PO CONSTIPATION Last administered on 22:38; Admin Dose 10 MG; Start 06/22/16 at 11:30 Benazepril HCl (Lotensin) 40 mg BID PO Last administered on 07/08/16 20:40; Admin Dose 40 MG; Start 06/23/16 at 21:00 Metoprolol Tartrate (Lopressor) 50 mg BID PO Last administered on 07/08/16 20: 40; Admin Dose 50 MG; Start 06/26/16 at 09:00 Hydralazine HCl (Apresoline) 20 mg Q4H PRN IV for SBP more than 170; Start at 05:00 Ondansetron HCl (Zofran Inj) 4 mg Q6H PRN IV NAUSEA AND/OR VOMITING Last administered on 07/03/16 14:45; Admin Dose 4 MG; Start 06/28/16 at 05:00 Lorazepam (Ativan) 1 mg Q6H PRN IV ANXIETY Last administered on 07/02/16 01:46 ; Admin Dose 1 MG; Start 06/28/16 at 05:00 Clonidine (Catapres) 0.1 mg QID PO Last administered on 07/08/16 20:39; Admin Dose 0.1 MG; Start 06/28/16 at 13:00 Cyclobenzaprine HCl (Flexeril) 10 mg TID PO Last administered on 07/08/16 20:40 ; Admin Dose 10 MG; Start 07/03/16 at 21:00 Hydromorphone HCl (Dilaudid) 0.5 mg Q4H PRN IV PAIN; Start 07/07/16 at 22:00 Hydromorphone HCl (Dilaudid) 1 mg Q3H PRN IV PAIN Last administered on 20:39; Admin Dose 1 MG; Start 07/07/16 at 22:00 PAOLA MOODY MD Jul 08, 2016 21:00
[2016-07-09] VITALS (12 sets, daily range): BP systolic 140–159; BP diastolic 55–81; PULSE 69–70; RESP 16–18
[2016-07-09] MEDS: ACCU-CHEK XX SCH ×5 (02:00→20:55)
[2016-07-09] MEDS: PANTOPRAZOLE (EC) 40 MG TAB PO SCH (06:12)
[2016-07-09] MEDS: HYDROmorphONE 1 MG/ML SYG IV PRN ×2 (06:19→20:55)
[2016-07-09 06:48] LABS: ADD SCAN DIFF NO
[2016-07-09 07:02] LABS: POTASSIUM 4.3 mmol/L (3.5-5.1)
[2016-07-09 07:05] LABS: BASOPHIL # 0.1 10^3/ul (0.0-0.1); BASOPHILS % 0.9 % (0.0-2.0); CREATININE 6.69 mg/dl (0.61-1.24); EOSINOPHILS # 0.5 10^3/ul (0.0-0.5); EOSINOPHILS % 5.6 % (0.0-7.0); HEMOGLOBIN 10.3 g/dl (14.0-18.0); LYMPHOCYTES # 0.9 10^3/ul (0.8-2.9); LYMPHOCYTES % 10.2 % (15.0-51.0); MEAN CORPUSCULAR HEMOGLOBIN 31.9 pg (29.0-33.0); MEAN CORPUSCULAR HGB CONC 33.2 g/dl (32.0-37.0); MEAN PLATELET VOLUME 9.4 fl (7.4-10.4); MONOCYTES % 11.5 % (0.0-11.0); NEUTROPHIL # 6.3 10^3/ul (1.6-7.5); NEUTROPHILS % 71.2 % (39.0-77.0); PLATELET COUNT 323 10^3/UL (140-415); RED BLOOD COUNT 3.23 10^6/ul (4.70-6.10); RED CELL DISTRIBUTION WIDTH 13.9 % (11.5-14.5); WHITE BLOOD COUNT 8.9 10^3/ul (4.8-10.8)
[2016-07-09] MEDS: CYCLOBENZAPRINE 10 MG TAB PO SCH ×3 (08:32→20:53)
[2016-07-09] MEDS: SEVELAMER CARBONATE 0.8 GM PKT PO SCH ×3 (08:32→18:17)
[2016-07-09] MEDS: FERROUS SULFATE (EC) 325 MG TAB PO SCH ×2 (08:32→20:53)
[2016-07-09] MEDS: CALCIUM ACETATE 667 MG CAP PO SCH ×3 (08:32→18:18)
[2016-07-09] MEDS: CHOLECALCIFEROL 400 UNITS TAB PO SCH (08:33)
[2016-07-09] MEDS: BENAZEPRIL 40 MG TAB PO SCH ×2 (08:33→20:54)
[2016-07-09] MEDS: ASPIRIN (EC) 81 MG TAB PO SCH (08:33)
[2016-07-09] MEDS: METOPROLOL 25 MG TAB PO SCH ×2 (08:33→20:57)
[2016-07-09] MEDS: AMLODIPINE 5 MG TAB PO SCH ×2 (08:36→20:54)
[2016-07-09] MEDS: INSULIN ASPART [NOVOLOG] 3 ML PEN SC SCH ×4 (08:36→20:54)
[2016-07-09] MEDS: LEVALBUTEROL (HFA) 15 GM INHALER INH SCH ×3 (08:42→15:37)
--- NOTE | 2016-07-09 10:04 | CONS ---
Date/Time of Note Date/Time of Note DATE: 07/09/16 TIME: 10:02 Assessment/Plan Assessment/Plan Chief Complaint/Hosp Course assessment/impression - h/o recurrent pleural effusion requiring thoracentesis approximately once a year, last performed in 04/2016 - s/p R VATS, total pulmonary decortication, R pleurodesis on 06/30/2016. Biopsy was negative for fungal stain and AFB stain (micro lab and pathology department), as well as malignancy. 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 Per Pt, his past PPD was done in 2013, and was negative. 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, Pt's at high risk for TB, : history (originally from [facility], spends one month of each year in [facility], last in 09/2015), medical history (DM, ESRD), medical findings as above - DM - ESRD on HD - CAD s/p CABG in 2010 and cardiac stent in 2013 - HIV screen negative in 07/2016 tested at [facility] recommendations - complete sputum for AFB smear and culture x3, 1 negative so far - mycobacterium tuberculosis DNA probe (PCR) to the 1st sputum sample is in process, will review the results - Pt is at a high risk for TB, and may benefit from empiric anti-TB treatment even if the biopsy was negative for AFB. But first, sputum for AFB smear x3 must be completed. management d/w Pt Problems: Consultation Date/Type/Reason Admit Date/Time Jun 13, 2016 at 14:48 Initial Consult Date 07/04/16 Type of Consultation: ID Referring Provider: EVA COX MD 24 HR Interval Summary Constitutional: no complaints Detailed Summary Eyes: no complaints ENT: no complaints Respiratory: pleuritic pain (R chest tube site) Cardiovascular: no complaints Gastrointestinal: no complaints Genitourinary: other (HD) Musculoskeletal: no complaints Skin: no complaints Neurologic: no complaints Exam/Review of Systems Vital Signs Vitals Vital Signs Date Time Temp Pulse Resp B/P Pulse Ox O2 Delivery O2 Flow Rate FiO2 07/09/16 08:35 69 07/09/16 08:05 98.7 18 140/81 93 07/09/16 00:05 Nasal Cannula 2.0 07/07/16 21:28 21 Intake and Output 07/08/16 07/08/16 07/09/16 15:00 23:00 07:00 Intake Total 500 ml 800 ml 400 ml Output Total 3520 ml 130 ml 10 ml Balance -3020 ml 670 ml 390 ml Exam Constitutional: alert, frail Psych: nl mood/affect, no complaints Head: normocephalic Eyes: nl conjunctiva, nl lids ENMT: nl external ears & nose, nl nasal mucosa & septum Neck: supple Respiratory: diminished breath sounds, other (R chest tube in place) Cardiovascular: nl pulses, regular rate and rhythm Gastrointestinal: non-tender, soft Extremities: No edema 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, nl mental status, nl speech Results Result Diagram: 07/09/16 0610 07/09/16 0610 Results 24 hrs Laboratory Tests Test 07/08/16 11:45 07/08/16 16:49 07/08/16 20:35 07/09/16 06:10 Bedside Glucose 246 H 193 145 Anion Gap 15 Basophils # 0.1 Basophils % 0.9 Blood Urea Nitrogen 43 #H Calcium Level 10.0 Carbon Dioxide Level 29 Chloride Level 95 L Creatinine 6.69 H Eosinophils # 0.5 Eosinophils % 5.6 Glucose Level 159 Hematocrit 31.0 #L Hemoglobin 10.3 #L Lymphocytes # 0.9 Lymphocytes % 10.2 L Mean Corpuscular Hemoglobin 31.9 Mean Corpuscular Hemoglobin Concent 33.2 Mean Corpuscular Volume 96.0 Mean Platelet Volume 9.4 Monocytes # 1.0 H Monocytes % 11.5 H Neutrophils # 6.3 Neutrophils % 71.2 Nucleated Red Blood Cells # 0.0 Nucleated Red Blood Cells % 0.0 Platelet Count 323 Potassium Level 4.3 Red Blood Count 3.23 #L Red Cell Distribution Width 13.9 Sodium Level 135 White Blood Count 8.9 Test 07/09/16 08:31 Bedside Glucose 146 Medications Medications Current Medications IV Flush (NS 10 ml) 10 ml PRN PRN IV FLUSH LINE; Start 06/13/16 at 19:00 Aspirin (Halfprin) 81 mg DAILY PO Last administered on 07/09/16 08:33; Admin Dose 81 MG; Start 06/14/16 at 09:00 Atorvastatin Calcium (Lipitor) 10 mg QHS PO Last administered on 07/08/16 20:39 ; Admin Dose 10 MG; Start 06/14/16 at 21:00 Cholecalciferol (Vitamin D) 400 units DAILY PO Last administered on 07/09/16 08 :33; Admin Dose 400 UNITS; Start 06/14/16 at 09:00 Ferrous Sulfate (Ferrous Sulfate (Ec)) 325 mg BID PO Last administered on 08:32; Admin Dose 325 MG; Start 06/14/16 at 09:00 Acetaminophen (Tylenol Tab) 500 mg Q4H PRN PO PAIN AND OR ELEVATED TEMP Last administered on 07/05/16 05:49; Admin Dose 500 MG; Start 06/14/16 at 00:00 Miscellaneous Information 1 ea NOTE XX Last administered on 06/18/16 07:57; Admin Dose 1 EA; Start 06/14/16 at 00:30 Glucose (Glutose) 15 gm Q15M PRN PO DECREASED GLUCOSE; Start 06/14/16 at 00:30 Glucose (Glutose) 22.5 gm Q15M PRN PO DECREASED GLUCOSE; Start 06/14/16 at 00: 30 Dextrose (D50w Syringe) 25 ml Q15M PRN IV DECREASED GLUCOSE; Start 06/14/16 at 00:30 Dextrose (D50w Syringe) 50 ml Q15M PRN IV DECREASED GLUCOSE; Start 06/14/16 at 00:30 Glucagon (Glucagen) 1 mg Q15M PRN IM DECREASED GLUCOSE; Start 06/14/16 at 00:30 Glucose (Glutose) 15 gm Q15M PRN BUCCAL DECREASED GLUCOSE; Start 06/14/16 at 00 :30 Diagnostic Test (Pha) (Accucheck) 1 ea 02 XX Last administered on 07/07/16 02: 00; Admin Dose 1 EA; Start 06/14/16 at 02:00 Amlodipine Besylate (Norvasc) 5 mg BID PO Last administered on 07/09/16 08:36; Admin Dose 5 MG; Start 06/14/16 at 13:30 Clonidine (Catapres) 0.2 mg Q8 PRN PO Systolic >160 Last administered on 02:29; Admin Dose 0.2 MG; Start 06/14/16 at 13:00 Promethazine HCl/ Codeine (Phenergan/ Codeine) 5 ml Q4H PRN PO COUGH Last administered on 06/21/16 18:04; Admin Dose 5 ML; Start 06/15/16 at 00:00 Insulin Glargine (Lantus) 14 unit QHS SC Last administered on 06/23/16 20:31; Admin Dose 14 UNIT; Start 06/15/16 at 21:00; Status Future Hold Pantoprazole (Protonix Tab) 40 mg DAILY@06 PO Last administered on 07/09/16 06: 12; Admin Dose 40 MG; Start 06/16/16 at 06:00 Diphenhydramine HCl (Benadryl) 25 mg HS PRN PO INSOMNIA Last administered on 00:54; Admin Dose 25 MG; Start 06/15/16 at 21:30 Hydralazine HCl (Apresoline) 100 mg Q8 PO Last administered on 07/09/16 06:12; Admin Dose 100 MG; Start 06/19/16 at 13:00 Bisacodyl (Dulcolax) 10 mg DAILY PRN PO CONSTIPATION Last administered on 22:38; Admin Dose 10 MG; Start 06/22/16 at 11:30 Benazepril HCl (Lotensin) 40 mg BID PO Last administered on 07/09/16 08:33; Admin Dose 40 MG; Start 06/23/16 at 21:00 Metoprolol Tartrate (Lopressor) 50 mg BID PO Last administered on 07/09/16 08: 33; Admin Dose 50 MG; Start 06/26/16 at 09:00 Hydralazine HCl (Apresoline) 20 mg Q4H PRN IV for SBP more than 170; Start at 05:00 Ondansetron HCl (Zofran Inj) 4 mg Q6H PRN IV NAUSEA AND/OR VOMITING Last administered on 07/03/16 14:45; Admin Dose 4 MG; Start 06/28/16 at 05:00 Lorazepam (Ativan) 1 mg Q6H PRN IV ANXIETY Last administered on 07/02/16 01:46 ; Admin Dose 1 MG; Start 06/28/16 at 05:00 Clonidine (Catapres) 0.1 mg QID PO Last administered on 07/09/16 08:32; Admin Dose 0.1 MG; Start 06/28/16 at 13:00 Cyclobenzaprine HCl (Flexeril) 10 mg TID PO Last administered on 07/09/16 08:32 ; Admin Dose 10 MG; Start 07/03/16 at 21:00 Hydromorphone HCl (Dilaudid) 0.5 mg Q4H PRN IV PAIN; Start 07/07/16 at 22:00 Hydromorphone HCl (Dilaudid) 1 mg Q3H PRN IV PAIN Last administered on 06:19; Admin Dose 1 MG; Start 07/07/16 at 22:00 YUMIKO NICHOLSON M.D. Jul 09, 2016 10:04
--- NOTE | 2016-07-09 13:58 | PN ---
Date/Time of Note Date/Time of Note DATE: 07/09/16 TIME: 13:46 Assessment/Plan VTE Prophylaxis VTE Prophylaxis Intervention: SCD's Lines/Catheters IV [facility] P[facility] Line Central line still needed: Yes Urinary Cath still in place: No Assessment/Plan Chief Complaint/Hosp Course Assessment and plan - Anemia, status post blood transfusion, heparin is on hold, Dr. Borjas is following from gastroenterology consultation. - Recurrent pleural effusions. Dr. Martinez is following in thoracic surgery consultation. S/p VATS 06/30. Follow-up on intraoperative cultures. Dr. Carl is following in infectious disease consultation. - Right pleural effusion, status post thoracentesis. Dr. Dale is following in pulmonology consultation. - End-stage renal disease, continue hemodialysis. Dr. Saunders is following in nephrology consultation. - Diabetes mellitus type 2, continue Lantus and NovoLog - Hypertension. Dr. De Santiago is following and cardiology consultation. - Coronary artery disease, status post coronary artery bypass graft. - Permanent pacemaker. No acute issues. - Dyslipidemia. Continue Lipitor. Continue heparin for deep venous thrombosis prophylaxis and Protonix for peptic ulcer disease prophylaxis. Further recommendations based on clinical course. Plan of care discussed with Dr. Price. Problems: Subjective 24 Hr Interval Summary Free Text/Dictation Patient status post blood transfusion and hemodialysis, hemoglobin is 10.3, patient is awake alert, no parlor. Chest tube with no drainage per nursing staff. Patient denies any shortness of breath denies any chest pain. Exam/Review of Systems Vital Signs Vitals Vital Signs Date Time Temp Pulse Resp B/P Pulse Ox O2 Delivery O2 Flow Rate FiO2 07/09/16 12:59 69 07/09/16 11:29 97.6 16 144/55 94 07/09/16 00:05 Nasal Cannula 2.0 07/07/16 21:28 21 Intake and Output 07/08/16 07/08/16 07/09/16 15:00 23:00 07:00 Intake Total 500 ml 800 ml 400 ml Output Total 3520 ml 130 ml 10 ml Balance -3020 ml 670 ml 390 ml Exam Constitutional: alert Psych: no complaints Head: atraumatic, normocephalic Eyes: nl conjunctiva ENMT: nl external ears & nose Neck: non-tender, supple Respiratory: clear to auscultation, R chest tube Cardiovascular: nl pulses Gastrointestinal: non-tender, soft Musculoskeletal: nl extremities to inspection Extremities: normal pulses Neurological: 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 AGENT II-XII intact Skin: nl turgor Results Result Diagram: 07/09/16 0610 07/09/16 0610 Results 24 hrs Laboratory Tests Test 07/08/16 16:49 07/08/16 20:35 07/09/16 06:10 07/09/16 08:31 Bedside Glucose 193 145 146 Anion Gap 15 Basophils # 0.1 Basophils % 0.9 Blood Urea Nitrogen 43 #H Calcium Level 10.0 Carbon Dioxide Level 29 Chloride Level 95 L Creatinine 6.69 H Eosinophils # 0.5 Eosinophils % 5.6 Glucose Level 159 Hematocrit 31.0 #L Hemoglobin 10.3 #L Lymphocytes # 0.9 Lymphocytes % 10.2 L Mean Corpuscular Hemoglobin 31.9 Mean Corpuscular Hemoglobin Concent 33.2 Mean Corpuscular Volume 96.0 Mean Platelet Volume 9.4 Monocytes # 1.0 H Monocytes % 11.5 H Neutrophils # 6.3 Neutrophils % 71.2 Nucleated Red Blood Cells # 0.0 Nucleated Red Blood Cells % 0.0 Platelet Count 323 Potassium Level 4.3 Red Blood Count 3.23 #L Red Cell Distribution Width 13.9 Sodium Level 135 White Blood Count 8.9 Test 07/09/16 10:02 07/09/16 11:57 Lab Scanned Report REFERENCE LAB Bedside Glucose 222 H Medications Medications Current Medications IV Flush (NS 10 ml) 10 ml PRN PRN IV FLUSH LINE; Start 06/13/16 at 19:00 Aspirin (Halfprin) 81 mg DAILY PO Last administered on 07/09/16 08:33; Admin Dose 81 MG; Start 06/14/16 at 09:00 Atorvastatin Calcium (Lipitor) 10 mg QHS PO Last administered on 07/08/16 20:39 ; Admin Dose 10 MG; Start 06/14/16 at 21:00 Cholecalciferol (Vitamin D) 400 units DAILY PO Last administered on 07/09/16 08 :33; Admin Dose 400 UNITS; Start 06/14/16 at 09:00 Ferrous Sulfate (Ferrous Sulfate (Ec)) 325 mg BID PO Last administered on 08:32; Admin Dose 325 MG; Start 06/14/16 at 09:00 Acetaminophen (Tylenol Tab) 500 mg Q4H PRN PO PAIN AND OR ELEVATED TEMP Last administered on 07/05/16 05:49; Admin Dose 500 MG; Start 06/14/16 at 00:00 Miscellaneous Information 1 ea NOTE XX Last administered on 06/18/16 07:57; Admin Dose 1 EA; Start 06/14/16 at 00:30 Glucose (Glutose) 15 gm Q15M PRN PO DECREASED GLUCOSE; Start 06/14/16 at 00:30 Glucose (Glutose) 22.5 gm Q15M PRN PO DECREASED GLUCOSE; Start 06/14/16 at 00: 30 Dextrose (D50w Syringe) 25 ml Q15M PRN IV DECREASED GLUCOSE; Start 06/14/16 at 00:30 Dextrose (D50w Syringe) 50 ml Q15M PRN IV DECREASED GLUCOSE; Start 06/14/16 at 00:30 Glucagon (Glucagen) 1 mg Q15M PRN IM DECREASED GLUCOSE; Start 06/14/16 at 00:30 Glucose (Glutose) 15 gm Q15M PRN BUCCAL DECREASED GLUCOSE; Start 06/14/16 at 00 :30 Diagnostic Test (Pha) (Accucheck) 1 ea 02 XX Last administered on 07/07/16 02: 00; Admin Dose 1 EA; Start 06/14/16 at 02:00 Amlodipine Besylate (Norvasc) 5 mg BID PO Last administered on 07/09/16 08:36; Admin Dose 5 MG; Start 06/14/16 at 13:30 Clonidine (Catapres) 0.2 mg Q8 PRN PO Systolic >160 Last administered on 02:29; Admin Dose 0.2 MG; Start 06/14/16 at 13:00 Promethazine HCl/ Codeine (Phenergan/ Codeine) 5 ml Q4H PRN PO COUGH Last administered on 06/21/16 18:04; Admin Dose 5 ML; Start 06/15/16 at 00:00 Insulin Glargine (Lantus) 14 unit QHS SC Last administered on 06/23/16 20:31; Admin Dose 14 UNIT; Start 06/15/16 at 21:00; Status Future Hold Pantoprazole (Protonix Tab) 40 mg DAILY@06 PO Last administered on 07/09/16 06: 12; Admin Dose 40 MG; Start 06/16/16 at 06:00 Diphenhydramine HCl (Benadryl) 25 mg HS PRN PO INSOMNIA Last administered on 00:54; Admin Dose 25 MG; Start 06/15/16 at 21:30 Hydralazine HCl (Apresoline) 100 mg Q8 PO Last administered on 07/09/16 06:12; Admin Dose 100 MG; Start 06/19/16 at 13:00 Bisacodyl (Dulcolax) 10 mg DAILY PRN PO CONSTIPATION Last administered on 22:38; Admin Dose 10 MG; Start 06/22/16 at 11:30 Benazepril HCl (Lotensin) 40 mg BID PO Last administered on 07/09/16 08:33; Admin Dose 40 MG; Start 06/23/16 at 21:00 Metoprolol Tartrate (Lopressor) 50 mg BID PO Last administered on 07/09/16 08: 33; Admin Dose 50 MG; Start 06/26/16 at 09:00 Hydralazine HCl (Apresoline) 20 mg Q4H PRN IV for SBP more than 170; Start at 05:00 Ondansetron HCl (Zofran Inj) 4 mg Q6H PRN IV NAUSEA AND/OR VOMITING Last administered on 07/03/16 14:45; Admin Dose 4 MG; Start 06/28/16 at 05:00 Lorazepam (Ativan) 1 mg Q6H PRN IV ANXIETY Last administered on 07/02/16 01:46 ; Admin Dose 1 MG; Start 06/28/16 at 05:00 Clonidine (Catapres) 0.1 mg QID PO Last administered on 07/09/16 08:32; Admin Dose 0.1 MG; Start 06/28/16 at 13:00 Cyclobenzaprine HCl (Flexeril) 10 mg TID PO Last administered on 07/09/16 08:32 ; Admin Dose 10 MG; Start 07/03/16 at 21:00 Hydromorphone HCl (Dilaudid) 0.5 mg Q4H PRN IV PAIN; Start 07/07/16 at 22:00 Hydromorphone HCl (Dilaudid) 1 mg Q3H PRN IV PAIN Last administered on t 06:19; Admin Dose 1 MG; Start 07/07/16 at 22:00 CECILIA DAMICO Jul 09, 2016 13:57
--- NOTE | 2016-07-09 14:56 | CONS ---
Date/Time of Note Date/Time of Note DATE: 07/09/16 TIME: 14:52 Assessment/Plan Assessment/Plan Chief Complaint/Hosp Course IMPRESSION: 1. Abnormal electrocardiogram, assess for acute coronary syndrome.-negative troponin x 3 2. History of recent negative stress, May 2015. 3. History of percutaneous transluminal coronary angioplasty and stent placement in 2014 to the left main left anterior descending. No current chest pain. 4. Hypertension, mildly elevated. 5. History of dyslipidemia. 6. Pleural effusion, status post thoracentesis. 7. Possible pneumonia/cough-improved 8. Diabetes mellitus. 9. End-stage renal disease, on hemodialysis. 10. Had WCT-06/27 which was paced beats at approx 100. NO recurrence since .MAC infection/colonization? RECOMMENDATIONS: -Tele -Continue metoprolol with slight increase to improve BP -Continue Benazepril -Continue norvasc/hydralazine -Continue asa/statin/plavix -Consider abx's and f/u cx data -Follow volume status with HD for volume removal -Follow CT output closely -Ongoing TB rule out Problems: Consultation Date/Type/Reason Admit Date/Time Jun 13, 2016 at 14:48 Initial Consult Date 06/14/2016 Type of Consultation: Cardiology Reason for Consultation abnl ecg Referring Provider: EVA COX MD Exam/Review of Systems Vital Signs Vitals Vital Signs Date Time Temp Pulse Resp B/P Pulse Ox O2 Delivery O2 Flow Rate FiO2 07/09/16 12:59 69 07/09/16 11:29 97.6 16 144/55 94 07/09/16 00:05 Nasal Cannula 2.0 07/07/16 21:28 21 Intake and Output 07/08/16 07/08/16 07/09/16 15:00 23:00 07:00 Intake Total 500 ml 800 ml 400 ml Output Total 3520 ml 130 ml 10 ml Balance -3020 ml 670 ml 390 ml Exam Review of Systems: CONSTITUTIONAL: No fevers, chills. PULMONARY: No sob CARDIOVASCULAR: No chest pain/palpitations GASTROINTESTINAL: No nausea/vomiting. GENITOURINARY: No hematuria/dysuria. MUSCULOSKELETAL: No myagias/arthalgias. PSYCHIATRIC: The patient denies depression. NEUROLOGIC: No weakness Constitutional: alert, oriented Psych: no complaints Head: normocephalic ENMT: mucosa pink and moist Neck: jvd, supple Respiratory: diminished breath sounds Cardiovascular: regular rate and rhythm Gastrointestinal: non-tender, soft Musculoskeletal: muscle tone Extremities: normal pulses Neurological: other (No focal deficits) Results Result Diagram: 07/09/16 0610 07/09/16 0610 Results 24 hrs Laboratory Tests Test 07/08/16 16:49 07/08/16 20:35 07/09/16 06:10 07/09/16 08:31 Bedside Glucose 193 145 146 Anion Gap 15 Basophils # 0.1 Basophils % 0.9 Blood Urea Nitrogen 43 #H Calcium Level 10.0 Carbon Dioxide Level 29 Chloride Level 95 L Creatinine 6.69 H Eosinophils # 0.5 Eosinophils % 5.6 Glucose Level 159 Hematocrit 31.0 #L Hemoglobin 10.3 #L Lymphocytes # 0.9 Lymphocytes % 10.2 L Mean Corpuscular Hemoglobin 31.9 Mean Corpuscular Hemoglobin Concent 33.2 Mean Corpuscular Volume 96.0 Mean Platelet Volume 9.4 Monocytes # 1.0 H Monocytes % 11.5 H Neutrophils # 6.3 Neutrophils % 71.2 Nucleated Red Blood Cells # 0.0 Nucleated Red Blood Cells % 0.0 Platelet Count 323 Potassium Level 4.3 Red Blood Count 3.23 #L Red Cell Distribution Width 13.9 Sodium Level 135 White Blood Count 8.9 Test 07/09/16 10:02 07/09/16 11:57 Lab Scanned Report REFERENCE LAB Bedside Glucose 222 H Medications Medications Current Medications IV Flush (NS 10 ml) 10 ml PRN PRN IV FLUSH LINE; Start 06/13/16 at 19:00 Aspirin (Halfprin) 81 mg DAILY PO Last administered on 07/09/16 08:33; Admin Dose 81 MG; Start 06/14/16 at 09:00 Atorvastatin Calcium (Lipitor) 10 mg QHS PO Last administered on 07/08/16 20:39 ; Admin Dose 10 MG; Start 06/14/16 at 21:00 Cholecalciferol (Vitamin D) 400 units DAILY PO Last administered on 07/09/16 08 :33; Admin Dose 400 UNITS; Start 06/14/16 at 09:00 Ferrous Sulfate (Ferrous Sulfate (Ec)) 325 mg BID PO Last administered on 08:32; Admin Dose 325 MG; Start 06/14/16 at 09:00 Acetaminophen (Tylenol Tab) 500 mg Q4H PRN PO PAIN AND OR ELEVATED TEMP Last administered on 07/05/16 05:49; Admin Dose 500 MG; Start 06/14/16 at 00:00 Miscellaneous Information 1 ea NOTE XX Last administered on 06/18/16 07:57; Admin Dose 1 EA; Start 06/14/16 at 00:30 Glucose (Glutose) 15 gm Q15M PRN PO DECREASED GLUCOSE; Start 06/14/16 at 00:30 Glucose (Glutose) 22.5 gm Q15M PRN PO DECREASED GLUCOSE; Start 06/14/16 at 00: 30 Dextrose (D50w Syringe) 25 ml Q15M PRN IV DECREASED GLUCOSE; Start 06/14/16 at 00:30 Dextrose (D50w Syringe) 50 ml Q15M PRN IV DECREASED GLUCOSE; Start 06/14/16 at 00:30 Glucagon (Glucagen) 1 mg Q15M PRN IM DECREASED GLUCOSE; Start 06/14/16 at 00:30 Glucose (Glutose) 15 gm Q15M PRN BUCCAL DECREASED GLUCOSE; Start 06/14/16 at 00 :30 Diagnostic Test (Pha) (Accucheck) 1 ea 02 XX Last administered on 07/07/16 02: 00; Admin Dose 1 EA; Start 06/14/16 at 02:00 Amlodipine Besylate (Norvasc) 5 mg BID PO Last administered on 07/09/16 08:36; Admin Dose 5 MG; Start 06/14/16 at 13:30 Clonidine (Catapres) 0.2 mg Q8 PRN PO Systolic >160 Last administered on 02:29; Admin Dose 0.2 MG; Start 06/14/16 at 13:00 Promethazine HCl/ Codeine (Phenergan/ Codeine) 5 ml Q4H PRN PO COUGH Last administered on 06/21/16 18:04; Admin Dose 5 ML; Start 06/15/16 at 00:00 Insulin Glargine (Lantus) 14 unit QHS SC Last administered on 06/23/16 20:31; Admin Dose 14 UNIT; Start 06/15/16 at 21:00; Status Future Hold Pantoprazole (Protonix Tab) 40 mg DAILY@06 PO Last administered on 07/09/16 06: 12; Admin Dose 40 MG; Start 06/16/16 at 06:00 Diphenhydramine HCl (Benadryl) 25 mg HS PRN PO INSOMNIA Last administered on 00:54; Admin Dose 25 MG; Start 06/15/16 at 21:30 Hydralazine HCl (Apresoline) 100 mg Q8 PO Last administered on 07/09/16 13:49; Admin Dose 100 MG; Start 06/19/16 at 13:00 Bisacodyl (Dulcolax) 10 mg DAILY PRN PO CONSTIPATION Last administered on 22:38; Admin Dose 10 MG; Start 06/22/16 at 11:30 Benazepril HCl (Lotensin) 40 mg BID PO Last administered on 07/09/16 08:33; Admin Dose 40 MG; Start 06/23/16 at 21:00 Metoprolol Tartrate (Lopressor) 50 mg BID PO Last administered on 07/09/16 08: 33; Admin Dose 50 MG; Start 06/26/16 at 09:00 Hydralazine HCl (Apresoline) 20 mg Q4H PRN IV for SBP more than 170; Start at 05:00 Ondansetron HCl (Zofran Inj) 4 mg Q6H PRN IV NAUSEA AND/OR VOMITING Last administered on 07/03/16 14:45; Admin Dose 4 MG; Start 06/28/16 at 05:00 Lorazepam (Ativan) 1 mg Q6H PRN IV ANXIETY Last administered on 07/02/16 01:46 ; Admin Dose 1 MG; Start 06/28/16 at 05:00 Clonidine (Catapres) 0.1 mg QID PO Last administered on 07/09/16 13:49; Admin Dose 0.1 MG; Start 06/28/16 at 13:00 Cyclobenzaprine HCl (Flexeril) 10 mg TID PO Last administered on 07/09/16 13:49 ; Admin Dose 10 MG; Start 07/03/16 at 21:00 Hydromorphone HCl (Dilaudid) 0.5 mg Q4H PRN IV PAIN; Start 07/07/16 at 22:00 Hydromorphone HCl (Dilaudid) 1 mg Q3H PRN IV PAIN Last administered on t 06:19; Admin Dose 1 MG; Start 07/07/16 at 22:00 SHERITA SCOTT Jul 09, 2016 14:55
--- NOTE | 2016-07-09 19:35 | CONS ---
Date/Time of Note Date/Time of Note DATE: 07/09/16 TIME: 19:35 Assessment/Plan Assessment/Plan Chief Complaint/Hosp Course ESRD HTN PNEUMONIA better PLEURAL EFFUSION s/p vats hyperkalemia HX TB GOLD TEST +r/o ptb ANEMIA PLAN PER CARDIO NON COMPLIANCE W HD hd refused hd 3 x wk HD T/THURSDAY PT REFUSED HD ON THURSDAY per pcp fluid res prbc PER SURGERY per id Problems: Consultation Date/Type/Reason Admit Date/Time Jun 13, 2016 at 14:48 Type of Consultation: renal Referring Provider: EVA COX MD 24 HR Interval Summary Constitutional: no complaints, No febrile Exam/Review of Systems Vital Signs Vitals Vital Signs Date Time Temp Pulse Resp B/P Pulse Ox O2 Delivery O2 Flow Rate FiO2 07/09/16 16:46 69 07/09/16 15:49 98.8 17 149/69 98 07/09/16 00:05 Nasal Cannula 2.0 07/07/16 21:28 21 Intake and Output 07/08/16 07/08/16 07/09/16 15:00 23:00 07:00 Intake Total 500 ml 800 ml 400 ml Output Total 3520 ml 130 ml 10 ml Balance -3020 ml 670 ml 390 ml Exam Respiratory: clear to auscultation Cardiovascular: regular rate and rhythm Gastrointestinal: soft Musculoskeletal: nl extremities to inspection Results Result Diagram: 07/09/16 0610 07/09/16 0610 Results 24 hrs Laboratory Tests Test 07/08/16 20:35 07/09/16 06:10 07/09/16 08:31 07/09/16 10:02 Bedside Glucose 145 146 Anion Gap 15 Basophils # 0.1 Basophils % 0.9 Blood Urea Nitrogen 43 #H Calcium Level 10.0 Carbon Dioxide Level 29 Chloride Level 95 L Creatinine 6.69 H Eosinophils # 0.5 Eosinophils % 5.6 Glucose Level 159 Hematocrit 31.0 #L Hemoglobin 10.3 #L Lymphocytes # 0.9 Lymphocytes % 10.2 L Mean Corpuscular Hemoglobin 31.9 Mean Corpuscular Hemoglobin Concent 33.2 Mean Corpuscular Volume 96.0 Mean Platelet Volume 9.4 Monocytes # 1.0 H Monocytes % 11.5 H Neutrophils # 6.3 Neutrophils % 71.2 Nucleated Red Blood Cells # 0.0 Nucleated Red Blood Cells % 0.0 Platelet Count 323 Potassium Level 4.3 Red Blood Count 3.23 #L Red Cell Distribution Width 13.9 Sodium Level 135 White Blood Count 8.9 Lab Scanned Report REFERENCE LAB Test 07/09/16 11:57 07/09/16 18:17 Bedside Glucose 222 H 167 Medications Medications Current Medications IV Flush (NS 10 ml) 10 ml PRN PRN IV FLUSH LINE; Start 06/13/16 at 19:00 Aspirin (Halfprin) 81 mg DAILY PO Last administered on 07/09/16 08:33; Admin Dose 81 MG; Start 06/14/16 at 09:00 Atorvastatin Calcium (Lipitor) 10 mg QHS PO Last administered on 07/08/16 20:39 ; Admin Dose 10 MG; Start 06/14/16 at 21:00 Cholecalciferol (Vitamin D) 400 units DAILY PO Last administered on 07/09/16 08 :33; Admin Dose 400 UNITS; Start 06/14/16 at 09:00 Ferrous Sulfate (Ferrous Sulfate (Ec)) 325 mg BID PO Last administered on 08:32; Admin Dose 325 MG; Start 06/14/16 at 09:00 Acetaminophen (Tylenol Tab) 500 mg Q4H PRN PO PAIN AND OR ELEVATED TEMP Last administered on 07/05/16 05:49; Admin Dose 500 MG; Start 06/14/16 at 00:00 Miscellaneous Information 1 ea NOTE XX Last administered on 06/18/16 07:57; Admin Dose 1 EA; Start 06/14/16 at 00:30 Glucose (Glutose) 15 gm Q15M PRN PO DECREASED GLUCOSE; Start 06/14/16 at 00:30 Glucose (Glutose) 22.5 gm Q15M PRN PO DECREASED GLUCOSE; Start 06/14/16 at 00: 30 Dextrose (D50w Syringe) 25 ml Q15M PRN IV DECREASED GLUCOSE; Start 06/14/16 at 00:30 Dextrose (D50w Syringe) 50 ml Q15M PRN IV DECREASED GLUCOSE; Start 06/14/16 at 00:30 Glucagon (Glucagen) 1 mg Q15M PRN IM DECREASED GLUCOSE; Start 06/14/16 at 00:30 Glucose (Glutose) 15 gm Q15M PRN BUCCAL DECREASED GLUCOSE; Start 06/14/16 at 00 :30 Diagnostic Test (Pha) (Accucheck) 1 ea 02 XX Last administered on 07/07/16 02: 00; Admin Dose 1 EA; Start 06/14/16 at 02:00 Amlodipine Besylate (Norvasc) 5 mg BID PO Last administered on 07/09/16 08:36; Admin Dose 5 MG; Start 06/14/16 at 13:30 Clonidine (Catapres) 0.2 mg Q8 PRN PO Systolic >160 Last administered on 02:29; Admin Dose 0.2 MG; Start 06/14/16 at 13:00 Promethazine HCl/ Codeine (Phenergan/ Codeine) 5 ml Q4H PRN PO COUGH Last administered on 06/21/16 18:04; Admin Dose 5 ML; Start 06/15/16 at 00:00 Insulin Glargine (Lantus) 14 unit QHS SC Last administered on 06/23/16 20:31; Admin Dose 14 UNIT; Start 06/15/16 at 21:00; Status Future Hold Pantoprazole (Protonix Tab) 40 mg DAILY@06 PO Last administered on 07/09/16 06: 12; Admin Dose 40 MG; Start 06/16/16 at 06:00 Diphenhydramine HCl (Benadryl) 25 mg HS PRN PO INSOMNIA Last administered on 00:54; Admin Dose 25 MG; Start 06/15/16 at 21:30 Hydralazine HCl (Apresoline) 100 mg Q8 PO Last administered on 07/09/16 13:49; Admin Dose 100 MG; Start 06/19/16 at 13:00 Bisacodyl (Dulcolax) 10 mg DAILY PRN PO CONSTIPATION Last administered on 22:38; Admin Dose 10 MG; Start 06/22/16 at 11:30 Benazepril HCl (Lotensin) 40 mg BID PO Last administered on 07/09/16 08:33; Admin Dose 40 MG; Start 06/23/16 at 21:00 Hydralazine HCl (Apresoline) 20 mg Q4H PRN IV for SBP more than 170; Start at 05:00 Ondansetron HCl (Zofran Inj) 4 mg Q6H PRN IV NAUSEA AND/OR VOMITING Last administered on 07/03/16 14:45; Admin Dose 4 MG; Start 06/28/16 at 05:00 Lorazepam (Ativan) 1 mg Q6H PRN IV ANXIETY Last administered on 07/02/16 01:46 ; Admin Dose 1 MG; Start 06/28/16 at 05:00 Clonidine (Catapres) 0.1 mg QID PO Last administered on 07/09/16 18:18; Admin Dose 0.1 MG; Start 06/28/16 at 13:00 Cyclobenzaprine HCl (Flexeril) 10 mg TID PO Last administered on 07/09/16 13:49 ; Admin Dose 10 MG; Start 07/03/16 at 21:00 Hydromorphone HCl (Dilaudid) 0.5 mg Q4H PRN IV PAIN Last administered on 15:38; Admin Dose 0.5 MG; Start 07/07/16 at 22:00 Hydromorphone HCl (Dilaudid) 1 mg Q3H PRN IV PAIN Last administered on 06:19; Admin Dose 1 MG; Start 07/07/16 at 22:00 Metoprolol Tartrate (Lopressor) 75 mg BID PO ; Start 07/09/16 at 21:00 PAOLA MOODY MD Jul 09, 2016 19:35
[2016-07-09] MEDS: ATORVASTATIN 10 MG TAB PO SCH (20:53)
[2016-07-10] VITALS (12 sets, daily range): BP systolic 146–167; BP diastolic 58–72; PULSE 69–74; RESP 16–20
[2016-07-10] MEDS: ACCU-CHEK XX SCH ×5 (02:00→21:00)
[2016-07-10] MEDS: PANTOPRAZOLE (EC) 40 MG TAB PO SCH (05:50)
[2016-07-10 06:43] LABS: ADD SCAN DIFF NO
[2016-07-10 06:49] LABS: BASOPHIL # 0.1 10^3/ul (0.0-0.1); EOSINOPHILS # 0.5 10^3/ul (0.0-0.5); EOSINOPHILS % 5.6 % (0.0-7.0); HEMATOCRIT 30.9 % (42.0-52.0); HEMOGLOBIN 10.3 g/dl (14.0-18.0); LYMPHOCYTES # 0.9 10^3/ul (0.8-2.9); LYMPHOCYTES % 11.1 % (15.0-51.0); MEAN CORPUSCULAR HEMOGLOBIN 31.8 pg (29.0-33.0); MEAN CORPUSCULAR HGB CONC 33.3 g/dl (32.0-37.0); MEAN CORPUSCULAR VOLUME 95.4 fl (82.0-101.0); MEAN PLATELET VOLUME 9.2 fl (7.4-10.4); MONOCYTE # 0.8 10^3/ul (0.3-0.9); NEUTROPHIL # 5.8 10^3/ul (1.6-7.5); NEUTROPHILS % 71.9 % (39.0-77.0); PLATELET COUNT 336 10^3/UL (140-415); RED BLOOD COUNT 3.24 10^6/ul (4.70-6.10); RED CELL DISTRIBUTION WIDTH 13.3 % (11.5-14.5)
[2016-07-10 07:14] LABS: POTASSIUM 4.4 mmol/L (3.5-5.1)
[2016-07-10 07:16] LABS: CREATININE 8.12 mg/dl (0.61-1.24)
[2016-07-10 07:17] LABS: CALCIUM 10.2 mg/dl (8.4-10.2)
--- NOTE | 2016-07-10 08:09 | CONS ---
Date/Time of Note Date/Time of Note DATE: 07/10/16 TIME: 08:08 Consult Date/Type/Reason Admit Date/Time Jun 13, 2016 at 14:48 Initial Consult Date 07/04/16 Type of Consultation: ID Ordering Provider: EVA COX MD Objective Vital Signs Date Time Temp Pulse Resp B/P Pulse Ox O2 Delivery O2 Flow Rate FiO2 07/10/16 07:57 98.1 70 18 152/59 95 07/09/16 20:00 Nasal Cannula 2.0 07/07/16 21:28 21 Intake and Output 07/09/16 07/09/16 07/10/16 15:00 23:00 07:00 Intake Total 350 ml Output Total 10 ml 100 ml Balance -10 ml 250 ml Results/Medications Result Diagram: 07/10/16 0601 07/10/16 0601 Results 24 hrs Laboratory Tests Test 07/09/16 08:31 07/09/16 10:02 07/09/16 11:57 07/09/16 18:17 Bedside Glucose 146 222 H 167 Lab Scanned Report REFERENCE LAB Test 07/09/16 20:27 07/10/16 06:01 07/10/16 07:34 Bedside Glucose 148 168 Anion Gap 15 Basophils # 0.1 Basophils % 1.0 Blood Urea Nitrogen 57 H Calcium Level 10.2 Carbon Dioxide Level 29 Chloride Level 93 L Creatinine 8.12 H Eosinophils # 0.5 Eosinophils % 5.6 Glucose Level 174 Hematocrit 30.9 L Hemoglobin 10.3 L Lymphocytes # 0.9 Lymphocytes % 11.1 L Mean Corpuscular Hemoglobin 31.8 Mean Corpuscular Hemoglobin Concent 33.3 Mean Corpuscular Volume 95.4 Mean Platelet Volume 9.2 Monocytes # 0.8 Monocytes % 10.0 Neutrophils # 5.8 Neutrophils % 71.9 Nucleated Red Blood Cells # 0.0 Nucleated Red Blood Cells % 0.0 Platelet Count 336 Potassium Level 4.4 Red Blood Count 3.24 L Red Cell Distribution Width 13.3 Sodium Level 133 L White Blood Count 8.0 Medications Current Medications IV Flush (NS 10 ml) 10 ml PRN PRN IV FLUSH LINE; Start 06/13/16 at 19:00 Aspirin (Halfprin) 81 mg DAILY PO Last administered on 07/09/16t 08:33; Admin Dose 81 MG; Start 06/14/16 at 09:00 Atorvastatin Calcium (Lipitor) 10 mg QHS PO Last administered on 07/09/16 20:53 ; Admin Dose 10 MG; Start 06/14/16 at 21:00 Cholecalciferol (Vitamin D) 400 units DAILY PO Last administered on 07/09/16 08 :33; Admin Dose 400 UNITS; Start 06/14/16 at 09:00 Ferrous Sulfate (Ferrous Sulfate (Ec)) 325 mg BID PO Last administered on 20:53; Admin Dose 325 MG; Start 06/14/16 at 09:00 Acetaminophen (Tylenol Tab) 500 mg Q4H PRN PO PAIN AND OR ELEVATED TEMP Last administered on 07/05/16 05:49; Admin Dose 500 MG; Start 06/14/16 at 00:00 Miscellaneous Information 1 ea NOTE XX Last administered on 06/18/16 07:57; Admin Dose 1 EA; Start 06/14/16 at 00:30 Glucose (Glutose) 15 gm Q15M PRN PO DECREASED GLUCOSE; Start 06/14/16 at 00:30 Glucose (Glutose) 22.5 gm Q15M PRN PO DECREASED GLUCOSE; Start 06/14/16 at 00: 30 Dextrose (D50w Syringe) 25 ml Q15M PRN IV DECREASED GLUCOSE; Start 06/14/16 at 00:30 Dextrose (D50w Syringe) 50 ml Q15M PRN IV DECREASED GLUCOSE; Start 06/14/16 at 00:30 Glucagon (Glucagen) 1 mg Q15M PRN IM DECREASED GLUCOSE; Start 06/14/16 at 00:30 Glucose (Glutose) 15 gm Q15M PRN BUCCAL DECREASED GLUCOSE; Start 06/14/16 at 00 :30 Diagnostic Test (Pha) (Accucheck) 1 ea 02 XX Last administered on 07/07/16 02: 00; Admin Dose 1 EA; Start 06/14/16 at 02:00 Amlodipine Besylate (Norvasc) 5 mg BID PO Last administered on 07/09/16 20:54; Admin Dose 5 MG; Start 06/14/16 at 13:30 Clonidine (Catapres) 0.2 mg Q8 PRN PO Systolic >160 Last administered on 02:29; Admin Dose 0.2 MG; Start 06/14/16 at 13:00 Promethazine HCl/ Codeine (Phenergan/ Codeine) 5 ml Q4H PRN PO COUGH Last administered on 06/21/16 18:04; Admin Dose 5 ML; Start 06/15/16 at 00:00 Insulin Glargine (Lantus) 14 unit QHS SC Last administered on 06/23/16 20:31; Admin Dose 14 UNIT; Start 06/15/16 at 21:00; Status Future Hold Pantoprazole (Protonix Tab) 40 mg DAILY@06 PO Last administered on 07/10/16 05: 50; Admin Dose 40 MG; Start 06/16/16 at 06:00 Diphenhydramine HCl (Benadryl) 25 mg HS PRN PO INSOMNIA Last administered on 00:54; Admin Dose 25 MG; Start 06/15/16 at 21:30 Hydralazine HCl (Apresoline) 100 mg Q8 PO Last administered on 07/10/16 05:51; Admin Dose 100 MG; Start 06/19/16 at 13:00 Bisacodyl (Dulcolax) 10 mg DAILY PRN PO CONSTIPATION Last administered on 22:38; Admin Dose 10 MG; Start 06/22/16 at 11:30 Benazepril HCl (Lotensin) 40 mg BID PO Last administered on 07/09/16 20:54; Admin Dose 40 MG; Start 06/23/16 at 21:00 Hydralazine HCl (Apresoline) 20 mg Q4H PRN IV for SBP more than 170; Start at 05:00 Ondansetron HCl (Zofran Inj) 4 mg Q6H PRN IV NAUSEA AND/OR VOMITING Last administered on 07/03/16 14:45; Admin Dose 4 MG; Start 06/28/16 at 05:00 Lorazepam (Ativan) 1 mg Q6H PRN IV ANXIETY Last administered on 07/02/16 01:46 ; Admin Dose 1 MG; Start 06/28/16 at 05:00 Clonidine (Catapres) 0.1 mg QID PO Last administered on 07/09/16 20:53; Admin Dose 0.1 MG; Start 06/28/16 at 13:00 Cyclobenzaprine HCl (Flexeril) 10 mg TID PO Last administered on 07/09/16 20:53 ; Admin Dose 10 MG; Start 07/03/16 at 21:00 Hydromorphone HCl (Dilaudid) 0.5 mg Q4H PRN IV PAIN Last administered on 15:38; Admin Dose 0.5 MG; Start 07/07/16 at 22:00 Hydromorphone HCl (Dilaudid) 1 mg Q3H PRN IV PAIN Last administered on 20:55; Admin Dose 1 MG; Start 07/07/16 at 22:00 Metoprolol Tartrate (Lopressor) 75 mg BID PO Last administered on 07/09/16 20: 57; Admin Dose 75 MG; Start 07/09/16 at 21:00 Assessment/Plan Chief Complaint/Hosp Course assessment/impression - h/o recurrent pleural effusion requiring thoracentesis approximately once a year, last performed in 04/2016 - s/p R VATS, total pulmonary decortication, R pleurodesis on 06/30/2016. Biopsy was negative for fungal stain and AFB stain (micro lab and pathology department), as well as malignancy. 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 Per Pt, his past PPD was done in 2013, and was negative. 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, Pt's at high risk for TB, : history (originally from [facility], spends one month of each year in [facility], last in 09/2015), medical history (DM, ESRD), medical findings as above - DM - ESRD on HD - CAD s/p CABG in 2010 and cardiac stent in 2013 - HIV screen negative in 07/2016 tested at [facility] recommendations - complete sputum for AFB smear and culture x3, 2 specimens have been in process so far - mycobacterium tuberculosis DNA probe (PCR) to the 1st sputum sample is in process, will review the results - Pt is at a high risk for TB, and may benefit from empiric anti-TB treatment even if the biopsy was negative for AFB. But first, sputum for AFB smear x3 must be completed. Problems: YUMIKO NICHOLSON M.D. Jul 10, 2016 08:09
[2016-07-10] MEDS: FERROUS SULFATE (EC) 325 MG TAB PO SCH ×2 (08:25→21:17)
[2016-07-10] MEDS: LEVALBUTEROL (HFA) 15 GM INHALER INH SCH ×3 (08:25→16:00)
[2016-07-10] MEDS: ASPIRIN (EC) 81 MG TAB PO SCH (08:25)
[2016-07-10] MEDS: CALCIUM ACETATE 667 MG CAP PO SCH ×3 (08:26→17:04)
[2016-07-10] MEDS: AMLODIPINE 5 MG TAB PO SCH ×2 (08:26→21:25)
[2016-07-10] MEDS: BENAZEPRIL 40 MG TAB PO SCH ×2 (08:27→21:18)
[2016-07-10] MEDS: CYCLOBENZAPRINE 10 MG TAB PO SCH ×3 (08:27→21:17)
[2016-07-10] MEDS: CHOLECALCIFEROL 400 UNITS TAB PO SCH (08:27)
[2016-07-10] MEDS: SEVELAMER CARBONATE 0.8 GM PKT PO SCH ×3 (08:27→17:04)
[2016-07-10] MEDS: METOPROLOL 25 MG TAB PO SCH ×2 (08:27→21:18)
[2016-07-10] MEDS: INSULIN ASPART [NOVOLOG] 3 ML PEN SC SCH ×4 (08:33→21:19)
--- NOTE | 2016-07-10 11:28 | PN ---
Date/Time of Note Date/Time of Note DATE: 07/10/16 TIME: 11:27 Assessment/Plan Lines/Catheters IV Catheter Type (from Nrsg): PICC Line Jonas in Place (from Nrsg): No Assessment/Plan Chief Complaint/Hosp Course IMPRESSION: Bilateral pleural effusions status post thoracentesis with much improvement. SP VATS Decortication CT [address] Problems: Subjective 24 Hr Interval Summary Constitutional: improved Pain Control: mild Exam/Review of Systems Vital Signs Vitals Vital Signs Date Time Temp Pulse Resp B/P Pulse Ox O2 Delivery O2 Flow Rate FiO2 07/10/16 08:24 74 07/10/16 07:57 98.1 18 152/59 95 07/09/16 20:00 Nasal Cannula 2.0 07/07/16 21:28 21 Intake and Output 07/09/16 07/09/16 07/10/16 15:00 23:00 07:00 Intake Total 350 ml Output Total 10 ml 100 ml Balance -10 ml 250 ml Exam Neck: non-tender, supple Respiratory: clear to auscultation, normal air movement Cardiovascular: nl pulses, regular rate and rhythm Gastrointestinal: nl liver, spleen, non-tender, soft Results Result Diagram: 07/10/16 0601 07/10/16 06 LILIA FELIZ MD Jul 10, 2016 11:28
--- NOTE | 2016-07-10 11:54 | PN ---
DATE: PULMONARY FOLLOWUP NOTE REASON FOR FOLLOWUP: Respiratory failure. Patient here remains stable. VITAL SIGNS: Temperature 98, pulse 74, blood pressure 152/59, O2 saturation 96% on room air. NECK: Supple. No JVD or lymphadenopathy. CARDIAC: S1, S2, no added sounds or murmurs. CHEST: Diminished air entry bilaterally. ABDOMEN: Soft, nontender. No guarding or rebound. EXTREMITIES: No cyanosis, clubbing, 1+ edema. NEUROLOGIC: Generalized weakness. LABORATORY DATA: BUN 57, creatinine 8.12. White count of 8, hemoglobin 10.3. IMPRESSION AND PLAN: 1. Status post decortication of loculated pleural effusion. 2. AFB negative x3. 3. History of positive QuantiFERON Gold. 4. History of granulomas. Patient will require: 1. Continue ID recommendations. Consider de-escalation of antibiotics. 2. Continue hemodialysis. 3. Consider discharge planning. Dictated By: MATILDE SHEPHERD/MANJIT Conf#: [id number] DID#: [id number]
--- NOTE | 2016-07-10 12:08 | PN ---
Date/Time of Note Date/Time of Note DATE: 07/10/16 TIME: 12:06 Assessment/Plan VTE Prophylaxis VTE Prophylaxis Intervention: SCD's, other Lines/Catheters IV C[facility]ter Type (from [facility]): PICC Line Central line still needed: Yes Urinary Cath still in place: No Assessment/Plan Assessment/Plan - Anemia, status post blood transfusion, heparin is on hold - per Dr. Borjas in gastroenterology consultation. - Recurrent pleural effusions. - per Dr. Martinez in thoracic surgery consultation. - S/p VATS 06/30. - Follow-up on intraoperative cultures. - per pulmonary - per infectious disease consultation. - Right pleural effusion, status post thoracentesis. - per Dr. Dale in pulmonology consultation. - End-stage renal disease, continue hemodialysis. - per Dr. Saunders in nephrology consultation. - Diabetes mellitus type 2, continue Lantus and NovoLog - Hypertension. - per Dr. De Santiago in cardiology consultation. - Coronary artery disease, status post coronary artery bypass graft. - Permanent pacemaker. No acute issues. - Dyslipidemia. Continue Lipitor. -Heparin for deep venous thrombosis prophylaxis -Protonix for peptic ulcer disease prophylaxis. Further recommendations based on clinical course. Plan of care discussed with Dr. Price. Subjective 24 Hr Interval Summary Free Text/Dictation NAD, Chest tube got pulled out by Dr Varela. dw staff. Eyes: no complaints ENT: no complaints Respiratory: pain Cardiovascular: no complaints Gastrointestinal: no complaints Genitourinary: no complaints Musculoskeletal: no complaints Skin: no complaints Neurologic: no complaints Endocrine: no complaints Lymphatic: no complaints Psychological: no complaints Exam/Review of Systems Vital Signs Vitals Vital Signs Date Time Temp Pulse Resp B/P Pulse Ox O2 Delivery O2 Flow Rate FiO2 07/10/16 11:35 98.5 70 18 148/58 96 07/09/16 20:00 Nasal Cannula 2.0 07/07/16 21:28 21 Intake and Output 07/09/16 07/09/16 07/10/16 14:59 22:59 06:59 Intake Total 350 ml Output Total 10 ml 100 ml Balance -10 ml 250 ml Exam Constitutional: alert, oriented, well developed Psych: nl mood/affect Head: atraumatic Eyes: EOMI, PERRL, nl sclera ENMT: nl external ears & nose Neck: non-tender Respiratory: diminished breath sounds (more on right than left. right chest dressing dry/intact) Cardiovascular: nl pulses Gastrointestinal: non-tender, soft Musculoskeletal: nl extremities to inspection Extremities: normal pulses Neurological: nl mental status, nl speech Skin: nl turgor Lymph: nontender Results Result Diagram: 07/10/16 0601 07/10/16 0601 Results 24 hrs Laboratory Tests Test 07/09/16 18:17 07/09/16 20:27 07/10/16 06:01 07/10/16 07:34 Bedside Glucose 167 148 168 Anion Gap 15 Basophils # 0.1 Basophils % 1.0 Blood Urea Nitrogen 57 H Calcium Level 10.2 Carbon Dioxide Level 29 Chloride Level 93 L Creatinine 8.12 H Eosinophils # 0.5 Eosinophils % 5.6 Glucose Level 174 Hematocrit 30.9 L Hemoglobin 10.3 L Lymphocytes # 0.9 Lymphocytes % 11.1 L Mean Corpuscular Hemoglobin 31.8 Mean Corpuscular Hemoglobin Concent 33.3 Mean Corpuscular Volume 95.4 Mean Platelet Volume 9.2 Monocytes # 0.8 Monocytes % 10.0 Neutrophils # 5.8 Neutrophils % 71.9 Nucleated Red Blood Cells # 0.0 Nucleated Red Blood Cells % 0.0 Platelet Count 336 Potassium Level 4.4 Red Blood Count 3.24 L Red Cell Distribution Width 13.3 Sodium Level 133 L White Blood Count 8.0 Test 07/10/16 11:37 Bedside Glucose 189 Medications Medications Current Medications IV Flush (NS 10 ml) 10 ml PRN PRN IV FLUSH LINE; Start 06/13/16 at 19:00 Aspirin (Halfprin) 81 mg DAILY PO Last administered on 07/10/16 08:25; Admin Dose 81 MG; Start 06/14/16 at 09:00 Atorvastatin Calcium (Lipitor) 10 mg QHS PO Last administered on 07/09/16 20:53 ; Admin Dose 10 MG; Start 06/14/16 at 21:00 Cholecalciferol (Vitamin D) 400 units DAILY PO Last administered on 07/10/16 08 :27; Admin Dose 400 UNITS; Start 06/14/16 at 09:00 Ferrous Sulfate (Ferrous Sulfate (Ec)) 325 mg BID PO Last administered on 08:25; Admin Dose 325 MG; Start 06/14/16 at 09:00 Acetaminophen (Tylenol Tab) 500 mg Q4H PRN PO PAIN AND OR ELEVATED TEMP Last administered on 07/05/16 05:49; Admin Dose 500 MG; Start 06/14/16 at 00:00 Miscellaneous Information 1 ea NOTE XX Last administered on 06/18/16 07:57; Admin Dose 1 EA; Start 06/14/16 at 00:30 Glucose (Glutose) 15 gm Q15M PRN PO DECREASED GLUCOSE; Start 06/14/16 at 00:30 Glucose (Glutose) 22.5 gm Q15M PRN PO DECREASED GLUCOSE; Start 06/14/16 at 00: 30 Dextrose (D50w Syringe) 25 ml Q15M PRN IV DECREASED GLUCOSE; Start 06/14/16 at 00:30 Dextrose (D50w Syringe) 50 ml Q15M PRN IV DECREASED GLUCOSE; Start 06/14/16 at 00:30 Glucagon (Glucagen) 1 mg Q15M PRN IM DECREASED GLUCOSE; Start 06/14/16 at 00:30 Glucose (Glutose) 15 gm Q15M PRN BUCCAL DECREASED GLUCOSE; Start 06/14/16 at 00 :30 Diagnostic Test (Pha) (Accucheck) 1 ea 02 XX Last administered on 07/07/16 02: 00; Admin Dose 1 EA; Start 06/14/16 at 02:00 Amlodipine Besylate (Norvasc) 5 mg BID PO Last administered on 07/10/16 08:26; Admin Dose 5 MG; Start 06/14/16 at 13:30 Clonidine (Catapres) 0.2 mg Q8 PRN PO Systolic >160 Last administered on 02:29; Admin Dose 0.2 MG; Start 06/14/16 at 13:00 Promethazine HCl/ Codeine (Phenergan/ Codeine) 5 ml Q4H PRN PO COUGH Last administered on 06/21/16 18:04; Admin Dose 5 ML; Start 06/15/16 at 00:00 Insulin Glargine (Lantus) 14 unit QHS SC Last administered on 06/23/16 20:31; Admin Dose 14 UNIT; Start 06/15/16 at 21:00; Status Future Hold Pantoprazole (Protonix Tab) 40 mg DAILY@06 PO Last administered on 07/10/16 05: 50; Admin Dose 40 MG; Start 06/16/16 at 06:00 Diphenhydramine HCl (Benadryl) 25 mg HS PRN PO INSOMNIA Last administered on 00:54; Admin Dose 25 MG; Start 06/15/16 at 21:30 Hydralazine HCl (Apresoline) 100 mg Q8 PO Last administered on 07/10/16 05:51; Admin Dose 100 MG; Start 06/19/16 at 13:00 Bisacodyl (Dulcolax) 10 mg DAILY PRN PO CONSTIPATION Last administered on 22:38; Admin Dose 10 MG; Start 06/22/16 at 11:30 Benazepril HCl (Lotensin) 40 mg BID PO Last administered on 07/10/16 08:27; Admin Dose 40 MG; Start 06/23/16 at 21:00 Hydralazine HCl (Apresoline) 20 mg Q4H PRN IV for SBP more than 170; Start at 05:00 Ondansetron HCl (Zofran Inj) 4 mg Q6H PRN IV NAUSEA AND/OR VOMITING Last administered on 07/03/16 14:45; Admin Dose 4 MG; Start 06/28/16 at 05:00 Lorazepam (Ativan) 1 mg Q6H PRN IV ANXIETY Last administered on 07/02/16 01:46 ; Admin Dose 1 MG; Start 06/28/16 at 05:00 Clonidine (Catapres) 0.1 mg QID PO Last administered on 07/10/16 08:26; Admin Dose 0.1 MG; Start 06/28/16 at 13:00 Cyclobenzaprine HCl (Flexeril) 10 mg TID PO Last administered on 07/10/16 08:27 ; Admin Dose 10 MG; Start 07/03/16 at 21:00 Hydromorphone HCl (Dilaudid) 0.5 mg Q4H PRN IV PAIN Last administered on 15:38; Admin Dose 0.5 MG; Start 07/07/16 at 22:00 Hydromorphone HCl (Dilaudid) 1 mg Q3H PRN IV PAIN Last administered on 20:55; Admin Dose 1 MG; Start 07/07/16 at 22:00 Metoprolol Tartrate (Lopressor) 75 mg BID PO Last administered on 07/10/16t 08: 27; Admin Dose 75 MG; Start 07/09/16 at 21:00 PATRICIA RUEDA Jul 10, 2016 12:08
--- NOTE | 2016-07-10 16:04 | RADRPT ---
PROCEDURE: Chest Radiograph. CLINICAL INDICATION: CHF TECHNIQUE: Single frontal chest radiograph. COMPARISON: Chest radiograph 07/05 16 FINDINGS: A left chest wall dual lead implantable pacer remains in place. There has been interval removal of a right chest tube. There is no pneumothorax. Heart size is within normal limits. Atherosclerotic c alcifications are present. There is mild improved aeration of the right lung base. Patchy right ba silar air space disease persists. There is an oblong opacity in the right mid lung zone which is st able and may represent loculated fluid. There is a small right pleural effusion. The left lung is clear. The bones are intact para IMPRESSION: 1. Interval removal of right chest tube. No pneumothorax. 2. Improved aeration of the right lung base. 3. Otherwise stable radiographic appearance of chest compared to 07/05/2016. RPTAT: KK .Robb Fulton MD, MD Date Time Electronically viewed and signed by .Robb Fulton MD, on 07/10/2016 16:04 .B/
--- NOTE | 2016-07-10 17:08 | CONS ---
Date/Time of Note Date/Time of Note DATE: 07/10/16 TIME: 17:07 Assessment/Plan Assessment/Plan Chief Complaint/Hosp Course ESRD HTN PNEUMONIA better PLEURAL EFFUSION s/p vats ctube out hyperkalemia HX TB GOLD TEST +r/o ptb ANEMIA PLAN PER CARDIO NON COMPLIANCE W HD hd refused hd 3 x wk HD T/THURSDAY PT REFUSED HD ON THURSDAY per pcp fluid res PER SURGERY per id Problems: Consultation Date/Type/Reason Admit Date/Time Jun 13, 2016 at 14:48 Type of Consultation: renal Referring Provider: EVA COX MD 24 HR Interval Summary Constitutional: other (sob better) Exam/Review of Systems Vital Signs Vitals Vital Signs Date Time Temp Pulse Resp B/P Pulse Ox O2 Delivery O2 Flow Rate FiO2 07/10/16 16:34 69 07/10/16 15:29 98.0 20 167/72 98 07/09/16 20:00 Nasal Cannula 2.0 07/07/16 21:28 21 Intake and Output 07/09/16 07/09/16 07/10/16 15:00 23:00 07:00 Intake Total 350 ml Output Total 10 ml 100 ml Balance -10 ml 250 ml Exam Respiratory: clear to auscultation Cardiovascular: regular rate and rhythm Gastrointestinal: soft Musculoskeletal: nl extremities to inspection Extremities: normal pulses Results Result Diagram: 07/10/16 0601 07/10/16 0601 Results 24 hrs Laboratory Tests Test 07/09/16 18:17 07/09/16 20:27 07/10/16 06:01 07/10/16 07:34 Bedside Glucose 167 148 168 Anion Gap 15 Basophils # 0.1 Basophils % 1.0 Blood Urea Nitrogen 57 H Calcium Level 10.2 Carbon Dioxide Level 29 Chloride Level 93 L Creatinine 8.12 H Eosinophils # 0.5 Eosinophils % 5.6 Glucose Level 174 Hematocrit 30.9 L Hemoglobin 10.3 L Lymphocytes # 0.9 Lymphocytes % 11.1 L Mean Corpuscular Hemoglobin 31.8 Mean Corpuscular Hemoglobin Concent 33.3 Mean Corpuscular Volume 95.4 Mean Platelet Volume 9.2 Monocytes # 0.8 Monocytes % 10.0 Neutrophils # 5.8 Neutrophils % 71.9 Nucleated Red Blood Cells # 0.0 Nucleated Red Blood Cells % 0.0 Platelet Count 336 Potassium Level 4.4 Red Blood Count 3.24 L Red Cell Distribution Width 13.3 Sodium Level 133 L White Blood Count 8.0 Test 07/10/16 11:37 07/10/16 16:32 Bedside Glucose 189 176 Medications Medications Current Medications IV Flush (NS 10 ml) 10 ml PRN PRN IV FLUSH LINE; Start 06/13/16 at 19:00 Aspirin (Halfprin) 81 mg DAILY PO Last administered on 07/10/16 08:25; Admin Dose 81 MG; Start 06/14/16 at 09:00 Atorvastatin Calcium (Lipitor) 10 mg QHS PO Last administered on 07/09/16 20:53 ; Admin Dose 10 MG; Start 06/14/16 at 21:00 Cholecalciferol (Vitamin D) 400 units DAILY PO Last administered on 07/10/16 08 :27; Admin Dose 400 UNITS; Start 06/14/16 at 09:00 Ferrous Sulfate (Ferrous Sulfate (Ec)) 325 mg BID PO Last administered on 08:25; Admin Dose 325 MG; Start 06/14/16 at 09:00 Acetaminophen (Tylenol Tab) 500 mg Q4H PRN PO PAIN AND OR ELEVATED TEMP Last administered on 07/05/16 05:49; Admin Dose 500 MG; Start 06/14/16 at 00:00 Miscellaneous Information 1 ea NOTE XX Last administered on 06/18/16 07:57; Admin Dose 1 EA; Start 06/14/16 at 00:30 Glucose (Glutose) 15 gm Q15M PRN PO DECREASED GLUCOSE; Start 06/14/16 at 00:30 Glucose (Glutose) 22.5 gm Q15M PRN PO DECREASED GLUCOSE; Start 06/14/16 at 00: 30 Dextrose (D50w Syringe) 25 ml Q15M PRN IV DECREASED GLUCOSE; Start 06/14/16 at 00:30 Dextrose (D50w Syringe) 50 ml Q15M PRN IV DECREASED GLUCOSE; Start 06/14/16 at 00:30 Glucagon (Glucagen) 1 mg Q15M PRN IM DECREASED GLUCOSE; Start 06/14/16 at 00:30 Glucose (Glutose) 15 gm Q15M PRN BUCCAL DECREASED GLUCOSE; Start 06/14/16 at 00 :30 Diagnostic Test (Pha) (Accucheck) 1 ea 02 XX Last administered on 07/07/16 02: 00; Admin Dose 1 EA; Start 06/14/16 at 02:00 Amlodipine Besylate (Norvasc) 5 mg BID PO Last administered on 07/10/16 08:26; Admin Dose 5 MG; Start 06/14/16 at 13:30 Clonidine (Catapres) 0.2 mg Q8 PRN PO Systolic >160 Last administered on 02:29; Admin Dose 0.2 MG; Start 06/14/16 at 13:00 Promethazine HCl/ Codeine (Phenergan/ Codeine) 5 ml Q4H PRN PO COUGH Last administered on 06/21/16 18:04; Admin Dose 5 ML; Start 06/15/16 at 00:00 Insulin Glargine (Lantus) 14 unit QHS SC Last administered on 06/23/16 20:31; Admin Dose 14 UNIT; Start 06/15/16 at 21:00; Status Future Hold Pantoprazole (Protonix Tab) 40 mg DAILY@06 PO Last administered on 07/10/16 05: 50; Admin Dose 40 MG; Start 06/16/16 at 06:00 Diphenhydramine HCl (Benadryl) 25 mg HS PRN PO INSOMNIA Last administered on 00:54; Admin Dose 25 MG; Start 06/15/16 at 21:30 Hydralazine HCl (Apresoline) 100 mg Q8 PO Last administered on 07/10/16 14:17; Admin Dose 100 MG; Start 06/19/16 at 13:00 Bisacodyl (Dulcolax) 10 mg DAILY PRN PO CONSTIPATION Last administered on 22:38; Admin Dose 10 MG; Start 06/22/16 at 11:30 Benazepril HCl (Lotensin) 40 mg BID PO Last administered on 07/10/16 08:27; Admin Dose 40 MG; Start 06/23/16 at 21:00 Hydralazine HCl (Apresoline) 20 mg Q4H PRN IV for SBP more than 170; Start at 05:00 Ondansetron HCl (Zofran Inj) 4 mg Q6H PRN IV NAUSEA AND/OR VOMITING Last administered on 07/03/16 14:45; Admin Dose 4 MG; Start 06/28/16 at 05:00 Lorazepam (Ativan) 1 mg Q6H PRN IV ANXIETY Last administered on 07/02/16 01:46 ; Admin Dose 1 MG; Start 06/28/16 at 05:00 Clonidine (Catapres) 0.1 mg QID PO Last administered on 07/10/16 12:29; Admin Dose 0.1 MG; Start 06/28/16 at 13:00 Cyclobenzaprine HCl (Flexeril) 10 mg TID PO Last administered on 07/10/16 12:29 ; Admin Dose 10 MG; Start 07/03/16 at 21:00 Hydromorphone HCl (Dilaudid) 0.5 mg Q4H PRN IV PAIN Last administered on 15:38; Admin Dose 0.5 MG; Start 07/07/16 at 22:00 Hydromorphone HCl (Dilaudid) 1 mg Q3H PRN IV PAIN Last administered on 20:55; Admin Dose 1 MG; Start 07/07/16 at 22:00 Metoprolol Tartrate (Lopressor) 75 mg BID PO Last administered on 07/10/16 08: 27; Admin Dose 75 MG; Start 07/09/16 at 21:00 PAOLA MOODY MD Jul 10, 2016 17:08
--- NOTE | 2016-07-10 19:49 | CONS ---
Date/Time of Note Date/Time of Note DATE: 07/10/16 TIME: 19:46 Assessment/Plan Assessment/Plan Chief Complaint/Hosp Course IMPRESSION: 1. Abnormal electrocardiogram, assess for acute coronary syndrome.-negative troponin x 3 2. History of recent negative stress, May 2015. 3. History of percutaneous transluminal coronary angioplasty and stent placement in 2014 to the left main left anterior descending. No current chest pain. 4. Hypertension, mildly elevated. 5. History of dyslipidemia. 6. Pleural effusion, status post thoracentesis. 7. Possible pneumonia/cough-improved 8. Diabetes mellitus. 9. End-stage renal disease, on hemodialysis. 10. Had WCT-06/27 which was paced beats at approx 100. NO recurrence since .MAC infection/colonization? RECOMMENDATIONS: -Tele -Continue metoprolol -Continue Benazepril -Continue norvasc/hydralazine -Now started on clonidine will f/u bp -Continue asa/statin/plavix -Consider abx's and f/u cx data -Follow volume status with HD for volume removal -Follow CT output closely -Ongoing TB rule out Problems: Consultation Date/Type/Reason Admit Date/Time Jun 13, 2016 at 14:48 Initial Consult Date 06/14/2016 Type of Consultation: cardiology Reason for Consultation abnl ecg/HTN Referring Provider: EVA COX MD Exam/Review of Systems Vital Signs Vitals Vital Signs Date Time Temp Pulse Resp B/P Pulse Ox O2 Delivery O2 Flow Rate FiO2 07/10/16 16:34 69 07/10/16 15:29 98.0 20 167/72 98 07/09/16 20:00 Nasal Cannula 2.0 07/07/16 21:28 21 Intake and Output 07/09/16 07/09/16 07/10/16 15:00 23:00 07:00 Intake Total 350 ml Output Total 10 ml 100 ml Balance -10 ml 250 ml Exam Review of Systems: CONSTITUTIONAL: No fevers, chills. PULMONARY: No sob CARDIOVASCULAR: No chest pain/palpitations GASTROINTESTINAL: No nausea/vomiting. GENITOURINARY: No hematuria/dysuria. MUSCULOSKELETAL: No myagias/arthalgias. PSYCHIATRIC: The patient denies depression. NEUROLOGIC: mild generalized weakness Constitutional: alert, oriented Psych: no complaints Head: normocephalic ENMT: mucosa pink and moist Neck: jvd (9 cm water), supple Respiratory: diminished breath sounds Cardiovascular: regular rate and rhythm Gastrointestinal: non-tender, soft Musculoskeletal: muscle tone Extremities: edema (none) Neurological: other (No focal deficits) Results Result Diagram: 07/10/16 0601 07/10/16 0601 Results 24 hrs Laboratory Tests Test 07/09/16 20:27 07/10/16 06:01 07/10/16 07:34 07/10/16 11:37 Bedside Glucose 148 168 189 Anion Gap 15 Basophils # 0.1 Basophils % 1.0 Blood Urea Nitrogen 57 H Calcium Level 10.2 Carbon Dioxide Level 29 Chloride Level 93 L Creatinine 8.12 H Eosinophils # 0.5 Eosinophils % 5.6 Glucose Level 174 Hematocrit 30.9 L Hemoglobin 10.3 L Lymphocytes # 0.9 Lymphocytes % 11.1 L Mean Corpuscular Hemoglobin 31.8 Mean Corpuscular Hemoglobin Concent 33.3 Mean Corpuscular Volume 95.4 Mean Platelet Volume 9.2 Monocytes # 0.8 Monocytes % 10.0 Neutrophils # 5.8 Neutrophils % 71.9 Nucleated Red Blood Cells # 0.0 Nucleated Red Blood Cells % 0.0 Platelet Count 336 Potassium Level 4.4 Red Blood Count 3.24 L Red Cell Distribution Width 13.3 Sodium Level 133 L White Blood Count 8.0 Test 07/10/16 16:32 Bedside Glucose 176 Medications Medications Current Medications IV Flush (NS 10 ml) 10 ml PRN PRN IV FLUSH LINE; Start 06/13/16 at 19:00 Aspirin (Halfprin) 81 mg DAILY PO Last administered on 07/10/16 08:25; Admin Dose 81 MG; Start 06/14/16 at 09:00 Atorvastatin Calcium (Lipitor) 10 mg QHS PO Last administered on 07/09/16 20:53 ; Admin Dose 10 MG; Start 06/14/16 at 21:00 Cholecalciferol (Vitamin D) 400 units DAILY PO Last administered on 07/10/16 08 :27; Admin Dose 400 UNITS; Start 06/14/16 at 09:00 Ferrous Sulfate (Ferrous Sulfate (Ec)) 325 mg BID PO Last administered on 08:25; Admin Dose 325 MG; Start 06/14/16 at 09:00 Acetaminophen (Tylenol Tab) 500 mg Q4H PRN PO PAIN AND OR ELEVATED TEMP Last administered on 07/05/16 05:49; Admin Dose 500 MG; Start 06/14/16 at 00:00 Miscellaneous Information 1 ea NOTE XX Last administered on 06/18/16 07:57; Admin Dose 1 EA; Start 06/14/16 at 00:30 Glucose (Glutose) 15 gm Q15M PRN PO DECREASED GLUCOSE; Start 06/14/16 at 00:30 Glucose (Glutose) 22.5 gm Q15M PRN PO DECREASED GLUCOSE; Start 06/14/16 at 00: 30 Dextrose (D50w Syringe) 25 ml Q15M PRN IV DECREASED GLUCOSE; Start 06/14/16 at 00:30 Dextrose (D50w Syringe) 50 ml Q15M PRN IV DECREASED GLUCOSE; Start 06/14/16 at 00:30 Glucagon (Glucagen) 1 mg Q15M PRN IM DECREASED GLUCOSE; Start 06/14/16 at 00:30 Glucose (Glutose) 15 gm Q15M PRN BUCCAL DECREASED GLUCOSE; Start 06/14/16 at 00 :30 Diagnostic Test (Pha) (Accucheck) 1 ea 02 XX Last administered on 07/07/16 02: 00; Admin Dose 1 EA; Start 06/14/16 at 02:00 Amlodipine Besylate (Norvasc) 5 mg BID PO Last administered on 07/10/16 08:26; Admin Dose 5 MG; Start 06/14/16 at 13:30 Clonidine (Catapres) 0.2 mg Q8 PRN PO Systolic >160 Last administered on 02:29; Admin Dose 0.2 MG; Start 06/14/16 at 13:00 Promethazine HCl/ Codeine (Phenergan/ Codeine) 5 ml Q4H PRN PO COUGH Last administered on 06/21/16 18:04; Admin Dose 5 ML; Start 06/15/16 at 00:00 Insulin Glargine (Lantus) 14 unit QHS SC Last administered on 06/23/16 20:31; Admin Dose 14 UNIT; Start 06/15/16 at 21:00; Status Future Hold Pantoprazole (Protonix Tab) 40 mg DAILY@06 PO Last administered on 07/10/16 05: 50; Admin Dose 40 MG; Start 06/16/16 at 06:00 Diphenhydramine HCl (Benadryl) 25 mg HS PRN PO INSOMNIA Last administered on 00:54; Admin Dose 25 MG; Start 06/15/16 at 21:30 Hydralazine HCl (Apresoline) 100 mg Q8 PO Last administered on 07/10/16 14:17; Admin Dose 100 MG; Start 06/19/16 at 13:00 Bisacodyl (Dulcolax) 10 mg DAILY PRN PO CONSTIPATION Last administered on 22:38; Admin Dose 10 MG; Start 06/22/16 at 11:30 Benazepril HCl (Lotensin) 40 mg BID PO Last administered on 07/10/16 08:27; Admin Dose 40 MG; Start 06/23/16 at 21:00 Hydralazine HCl (Apresoline) 20 mg Q4H PRN IV for SBP more than 170; Start at 05:00 Ondansetron HCl (Zofran Inj) 4 mg Q6H PRN IV NAUSEA AND/OR VOMITING Last administered on 07/03/16 14:45; Admin Dose 4 MG; Start 06/28/16 at 05:00 Lorazepam (Ativan) 1 mg Q6H PRN IV ANXIETY Last administered on 07/02/16 01:46 ; Admin Dose 1 MG; Start 06/28/16 at 05:00 Clonidine (Catapres) 0.1 mg QID PO Last administered on 07/10/16 17:06; Admin Dose 0.1 MG; Start 06/28/16 at 13:00 Cyclobenzaprine HCl (Flexeril) 10 mg TID PO Last administered on 07/10/16 12:29 ; Admin Dose 10 MG; Start 07/03/16 at 21:00 Hydromorphone HCl (Dilaudid) 0.5 mg Q4H PRN IV PAIN Last administered on 15:38; Admin Dose 0.5 MG; Start 07/07/16 at 22:00 Hydromorphone HCl (Dilaudid) 1 mg Q3H PRN IV PAIN Last administered on 20:55; Admin Dose 1 MG; Start 07/07/16 at 22:00 Metoprolol Tartrate (Lopressor) 75 mg BID PO Last administered on 07/10/16t 08: 27; Admin Dose 75 MG; Start 07/09/16 at 21:00 SHERITA SCOTT Jul 10, 2016 19:49
[2016-07-10] MEDS: ATORVASTATIN 10 MG TAB PO SCH (21:17)
[2016-07-11] VITALS (12 sets, daily range): BP systolic 145–156; BP diastolic 55–68; PULSE 69; RESP 20
[2016-07-11] MEDS: LEVALBUTEROL (HFA) 15 GM INHALER INH SCH ×3 (00:52→16:36)
[2016-07-11] MEDS: ACCU-CHEK XX SCH ×5 (01:54→21:18)
[2016-07-11] MEDS: PANTOPRAZOLE (EC) 40 MG TAB PO SCH (06:11)
[2016-07-11] MEDS: HYDROmorphONE 1 MG/ML SYG IV PRN (06:16)
[2016-07-11 07:23] LABS: ADD SCAN DIFF NO
[2016-07-11 07:30] LABS: BASOPHIL # 0.1 10^3/ul (0.0-0.1); BASOPHILS % 0.8 % (0.0-2.0); EOSINOPHILS # 0.4 10^3/ul (0.0-0.5); EOSINOPHILS % 4.8 % (0.0-7.0); HEMATOCRIT 30.3 % (42.0-52.0); HEMOGLOBIN 10.3 g/dl (14.0-18.0); LYMPHOCYTES # 0.8 10^3/ul (0.8-2.9); LYMPHOCYTES % 8.8 % (15.0-51.0); MEAN CORPUSCULAR VOLUME 94.1 fl (82.0-101.0); MONOCYTE # 0.8 10^3/ul (0.3-0.9); MONOCYTES % 9.3 % (0.0-11.0); NEUTROPHIL # 6.9 10^3/ul (1.6-7.5); NEUTROPHILS % 75.9 % (39.0-77.0); PLATELET COUNT 385 10^3/UL (140-415); RED BLOOD COUNT 3.22 10^6/ul (4.70-6.10)
[2016-07-11 07:44] LABS: POTASSIUM 4.5 mmol/L (3.5-5.1)
[2016-07-11 07:46] LABS: CREATININE 9.24 mg/dl (0.61-1.24)
[2016-07-11 07:47] LABS: CALCIUM 10.5 mg/dl (8.4-10.2)
[2016-07-11] MEDS: AMLODIPINE 5 MG TAB PO SCH ×2 (08:12→21:17)
[2016-07-11] MEDS: BENAZEPRIL 40 MG TAB PO SCH ×2 (08:12→21:17)
[2016-07-11] MEDS: CALCIUM ACETATE 667 MG CAP PO SCH ×4 (08:12→21:17)
[2016-07-11] MEDS: SEVELAMER CARBONATE 0.8 GM PKT PO SCH ×3 (08:12→17:02)
[2016-07-11] MEDS: CHOLECALCIFEROL 400 UNITS TAB PO SCH (08:13)
[2016-07-11] MEDS: METOPROLOL 25 MG TAB PO SCH ×2 (08:13→21:16)
[2016-07-11] MEDS: ASPIRIN (EC) 81 MG TAB PO SCH (08:13)
[2016-07-11] MEDS: FERROUS SULFATE (EC) 325 MG TAB PO SCH ×2 (08:13→21:17)
[2016-07-11] MEDS: CYCLOBENZAPRINE 10 MG TAB PO SCH ×3 (08:13→21:18)
[2016-07-11] MEDS: INSULIN ASPART [NOVOLOG] 3 ML PEN SC SCH ×5 (08:20→21:00)
--- NOTE | 2016-07-11 10:55 | CONS ---
Date/Time of Note Date/Time of Note DATE: 07/11/16 TIME: 10:49 Assessment/Plan Assessment/Plan Chief Complaint/Hosp Course assessment/impression - h/o recurrent pleural effusion requiring thoracentesis approximately once a year, last performed in 04/2016 - s/p R VATS, total pulmonary decortication, R pleurodesis on 06/30/2016. Biopsy was negative for fungal stain and AFB stain (micro lab and pathology department), as well as malignancy. It showed granulomatous inflammation with focal necrosis and extensive hyalinization. 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 Per Pt, his past PPD was done in 2013, and was negative. 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 Cx are in process - Mycobacterium tuberculosis DNA probe (PCR) to the 1st sputum sample is in process, will review the results - Pt is at a high risk for TB, and I recommend empiric RIPE (plus vitamin B6 supplement). Lindsey at the infection control agreed to discuss my recommendation with the TB control office at [facility] and ask for their expert opinion. - If TB control at [facility] requests more tests on this Pt, we will order them accordingly. - Lindsey and I recommend that Pt remain under airborne precautions until we get directed by [facility] management d/w Pt, his RN and Lindsey Problems: Consultation Date/Type/Reason Admit Date/Time Jun 13, 2016 at 14:48 Initial Consult Date 07/04/16 Type of Consultation: ID Referring Provider: EVA COX MD 24 HR Interval Summary Constitutional: no complaints Detailed Summary Eyes: no complaints ENT: no complaints Respiratory: cough, pain, pleuritic pain (R sided), No sputum Cardiovascular: no complaints Gastrointestinal: no complaints Genitourinary: other (HD) Musculoskeletal: no complaints Skin: no complaints Exam/Review of Systems Vital Signs Vitals Vital Signs Date Time Temp Pulse Resp B/P Pulse Ox O2 Delivery O2 Flow Rate FiO2 07/11/16 08:40 69 07/11/16 07:30 98.5 20 156/64 96 07/09/16 20:00 Nasal Cannula 2.0 07/07/16 21:28 21 Intake and Output 07/10/16 07/10/16 07/11/16 15:00 23:00 07:00 Intake Total 650 ml Output Total 10 ml 400 ml Balance -10 ml 250 ml Exam Constitutional: alert, frail, No distress Psych: nl mood/affect, no complaints Head: atraumatic, normocephalic Eyes: nl conjunctiva, nl lids ENMT: nl external ears & nose Neck: supple Respiratory: diminished breath sounds, other (chest tube was removed, the site is dressed c/d/i. Non-TTP) Cardiovascular: nl pulses, regular rate and rhythm Gastrointestinal: non-tender, soft Musculoskeletal: nl extremities to inspection Extremities: normal pulses Neurological: YOUNG ADULT LIBRARIAN II-XII intact, nl mental status, nl speech Skin: nl turgor Results Result Diagram: 07/11/1670407/11/16704 Results 24 hrs Laboratory Tests Test 07/10/16 11:37 07/10/16 16:32 07/10/16 21:15 07/11/16 01:48 Bedside Glucose 189 176 209 202 Test 07/11/16 07:05 07/11/16 07:24 Anion Gap 19 H Basophils # 0.1 Basophils % 0.8 Blood Urea Nitrogen 69 H Calcium Level 10.5 H Carbon Dioxide Level 25 Chloride Level 95 L Creatinine 9.24 H Eosinophils # 0.4 Eosinophils % 4.8 Glucose Level 195 Hematocrit 30.3 L Hemoglobin 10.3 L Lymphocytes # 0.8 Lymphocytes % 8.8 L Mean Corpuscular Hemoglobin 32.0 Mean Corpuscular Hemoglobin Concent 34.0 Mean Corpuscular Volume 94.1 Mean Platelet Volume 9.0 Monocytes # 0.8 Monocytes % 9.3 Neutrophils # 6.9 Neutrophils % 75.9 Nucleated Red Blood Cells # 0.0 Nucleated Red Blood Cells % 0.0 Platelet Count 385 Potassium Level 4.5 Red Blood Count 3.22 L Red Cell Distribution Width 13.0 Sodium Level 134 L White Blood Count 9.0 Bedside Glucose 201 Medications Medications Current Medications IV Flush (NS 10 ml) 10 ml PRN PRN IV FLUSH LINE; Start 06/13/16 at 19:00 Aspirin (Halfprin) 81 mg DAILY PO Last administered on 07/11/16 08:13; Admin Dose 81 MG; Start 06/14/16 at 09:00 Atorvastatin Calcium (Lipitor) 10 mg QHS PO Last administered on 07/10/16 21:17 ; Admin Dose 10 MG; Start 06/14/16 at 21:00 Cholecalciferol (Vitamin D) 400 units DAILY PO Last administered on 07/11/16 08:13; Admin Dose 400 UNITS; Start 06/14/16 at 09:00 Ferrous Sulfate (Ferrous Sulfate (Ec)) 325 mg BID PO Last administered on 08:13; Admin Dose 325 MG; Start 06/14/16 at 09:00 Acetaminophen (Tylenol Tab) 500 mg Q4H PRN PO PAIN AND OR ELEVATED TEMP Last administered on 07/05/16 05:49; Admin Dose 500 MG; Start 06/14/16 at 00:00 Miscellaneous Information 1 ea NOTE XX Last administered on 06/18/16 07:57; Admin Dose 1 EA; Start 06/14/16 at 00:30 Glucose (Glutose) 15 gm Q15M PRN PO DECREASED GLUCOSE; Start 06/14/16 at 00:30 Glucose (Glutose) 22.5 gm Q15M PRN PO DECREASED GLUCOSE; Start 06/14/16 at 00: 30 Dextrose (D50w Syringe) 25 ml Q15M PRN IV DECREASED GLUCOSE; Start 06/14/16 at 00:30 Dextrose (D50w Syringe) 50 ml Q15M PRN IV DECREASED GLUCOSE; Start 06/14/16 at 00:30 Glucagon (Glucagen) 1 mg Q15M PRN IM DECREASED GLUCOSE; Start 06/14/16 at 00:30 Glucose (Glutose) 15 gm Q15M PRN BUCCAL DECREASED GLUCOSE; Start 06/14/16 at 00 :30 Diagnostic Test (Pha) (Accucheck) 1 ea 02 XX Last administered on 07/11/16 01: 54; Admin Dose 1 EA; Start 06/14/16 at 02:00 Amlodipine Besylate (Norvasc) 5 mg BID PO Last administered on 07/11/16 08:12 ; Admin Dose 5 MG; Start 06/14/16 at 13:30 Clonidine (Catapres) 0.2 mg Q8 PRN PO Systolic >160 Last administered on 02:29; Admin Dose 0.2 MG; Start 06/14/16 at 13:00 Promethazine HCl/ Codeine (Phenergan/ Codeine) 5 ml Q4H PRN PO COUGH Last administered on 06/21/16 18:04; Admin Dose 5 ML; Start 06/15/16 at 00:00 Insulin Glargine (Lantus) 14 unit QHS SC Last administered on 06/23/16 20:31; Admin Dose 14 UNIT; Start 06/15/16 at 21:00; Status Future Hold Pantoprazole (Protonix Tab) 40 mg DAILY@06 PO Last administered on 07/11/16 06 :11; Admin Dose 40 MG; Start 06/16/16 at 06:00 Diphenhydramine HCl (Benadryl) 25 mg HS PRN PO INSOMNIA Last administered on 00:54; Admin Dose 25 MG; Start 06/15/16 at 21:30 Hydralazine HCl (Apresoline) 100 mg Q8 PO Last administered on 07/11/16 06:11 ; Admin Dose 100 MG; Start 06/19/16 at 13:00 Bisacodyl (Dulcolax) 10 mg DAILY PRN PO CONSTIPATION Last administered on 22:38; Admin Dose 10 MG; Start 06/22/16 at 11:30 Benazepril HCl (Lotensin) 40 mg BID PO Last administered on 07/11/16 08:12; Admin Dose 40 MG; Start 06/23/16 at 21:00 Hydralazine HCl (Apresoline) 20 mg Q4H PRN IV for SBP more than 170; Start at 05:00 Ondansetron HCl (Zofran Inj) 4 mg Q6H PRN IV NAUSEA AND/OR VOMITING Last administered on 07/03/16 14:45; Admin Dose 4 MG; Start 06/28/16 at 05:00 Lorazepam (Ativan) 1 mg Q6H PRN IV ANXIETY Last administered on 07/02/16 01:46 ; Admin Dose 1 MG; Start 06/28/16 at 05:00 Clonidine (Catapres) 0.1 mg QID PO Last administered on 07/11/16 08:12; Admin Dose 0.1 MG; Start 06/28/16 at 13:00 Cyclobenzaprine HCl (Flexeril) 10 mg TID PO Last administered on 07/11/16 08: 13; Admin Dose 10 MG; Start 07/03/16 at 21:00 Hydromorphone HCl (Dilaudid) 0.5 mg Q4H PRN IV PAIN Last administered on 15:38; Admin Dose 0.5 MG; Start 07/07/16 at 22:00 Hydromorphone HCl (Dilaudid) 1 mg Q3H PRN IV PAIN Last administered on 06:16; Admin Dose 1 MG; Start 07/07/16 at 22:00 Metoprolol Tartrate (Lopressor) 75 mg BID PO Last administered on 07/11/16 08: 13; Admin Dose 75 MG; Start 07/09/16 at 21:00 YUMIKO NICHOLSON M.D. Jul 11, 2016 10:55
--- NOTE | 2016-07-11 13:08 | PN ---
Date/Time of Note Date/Time of Note DATE: 07/11/16 TIME: 13:01 Assessment/Plan VTE Prophylaxis VTE Prophylaxis Intervention: SCD's Lines/Catheters IV [facility]ter Type (from [facility]): PICC Line Central line still needed: Yes Urinary Cath still in place: No Assessment/Plan Chief Complaint/Hosp Course Assessment and plan - Anemia, status post blood transfusion, heparin is on hold, Dr. Borjas is following from gastroenterology consultation. - Recurrent pleural effusions. Dr. Martinez is following in thoracic surgery consultation. S/p VATS 06/30. Biopsy revealed granulomatous inflammation with focal necrosis and extensive hyalinization. Sputum for AFB negative 3. Continued on, on airborne isolation until cleared by department of health. Dr. Carl is following in infectious disease consultation. - Right pleural effusion, status post thoracentesis. Dr. Dale is following in pulmonology consultation. - End-stage renal disease, continue hemodialysis. Dr. Saunders is following in nephrology consultation. - Diabetes mellitus type 2, continue Lantus, pre-meal NovoLog and NovoLog per mild algorithm sliding scale. - Hypertension. Dr. De Santiago is following and cardiology consultation. - Coronary artery disease, status post coronary artery bypass graft. - Permanent pacemaker. No acute issues. - Dyslipidemia. Continue Lipitor. Continue heparin for deep venous thrombosis prophylaxis and Protonix for peptic ulcer disease prophylaxis. Further recommendations based on clinical course. Plan of care discussed with Dr. Price. Problems: Subjective 24 Hr Interval Summary Free Text/Dictation Patient status post chest tube removal yesterday, denies any shortness of breath , comfortable breathing on room air, patient was elevated blood sugar, will restart patient's on Lantus and pre-meal NovoLog. Chest x-ray tomorrow. Exam/Review of Systems Vital Signs Vitals Vital Signs Date Time Temp Pulse Resp B/P Pulse Ox O2 Delivery O2 Flow Rate FiO2 07/11/16 12:27 69 07/11/16 11:56 98.0 20 155/67 93 07/09/16 20:00 Nasal Cannula 2.0 07/07/16 21:28 21 Intake and Output 07/10/16 07/10/16 07/11/16 15:00 23:00 07:00 Intake Total 650 ml Output Total 10 ml 400 ml Balance -10 ml 250 ml Exam Constitutional: alert Psych: no complaints Head: atraumatic, normocephalic Eyes: nl conjunctiva ENMT: nl external ears & nose Neck: non-tender, supple Respiratory: clear to auscultation. Cardiovascular: nl pulses Gastrointestinal: non-tender, soft Musculoskeletal: nl extremities to inspection Extremities: normal pulses Neurological: PROGRAM CLERK II-XII intact Skin: nl turgor Results Result Diagram: 07/11/16 0707/11/16 07 Results 24 hrs Laboratory Tests Test 07/10/16 16:32 07/10/16 21:15 07/11/16 01:48 07/11/16 07:05 Bedside Glucose 176 209 202 Anion Gap 19 H Basophils # 0.1 Basophils % 0.8 Blood Urea Nitrogen 69 H Calcium Level 10.5 H Carbon Dioxide Level 25 Chloride Level 95 L Creatinine 9.24 H Eosinophils # 0.4 Eosinophils % 4.8 Glucose Level 195 Hematocrit 30.3 L Hemoglobin 10.3 L Lymphocytes # 0.8 Lymphocytes % 8.8 L Mean Corpuscular Hemoglobin 32.0 Mean Corpuscular Hemoglobin Concent 34.0 Mean Corpuscular Volume 94.1 Mean Platelet Volume 9.0 Monocytes # 0.8 Monocytes % 9.3 Neutrophils # 6.9 Neutrophils % 75.9 Nucleated Red Blood Cells # 0.0 Nucleated Red Blood Cells % 0.0 Platelet Count 385 Potassium Level 4.5 Red Blood Count 3.22 L Red Cell Distribution Width 13.0 Sodium Level 134 L White Blood Count 9.0 Test 07/11/16 07:24 07/11/16 11:25 Bedside Glucose 201 173 Medications Medications Current Medications IV Flush (NS 10 ml) 10 ml PRN PRN IV FLUSH LINE; Start 06/13/16 at 19:00 Aspirin (Halfprin) 81 mg DAILY PO Last administered on 07/11/16 08:13; Admin Dose 81 MG; Start 06/14/16 at 09:00 Atorvastatin Calcium (Lipitor) 10 mg QHS PO Last administered on 07/10/16 21:17 ; Admin Dose 10 MG; Start 06/14/16 at 21:00 Cholecalciferol (Vitamin D) 400 units DAILY PO Last administered on 07/11/16 08:13; Admin Dose 400 UNITS; Start 06/14/16 at 09:00 Ferrous Sulfate (Ferrous Sulfate (Ec)) 325 mg BID PO Last administered on 08:13; Admin Dose 325 MG; Start 06/14/16 at 09:00 Acetaminophen (Tylenol Tab) 500 mg Q4H PRN PO PAIN AND OR ELEVATED TEMP Last administered on 07/05/16 05:49; Admin Dose 500 MG; Start 06/14/16 at 00:00 Miscellaneous Information 1 ea NOTE XX Last administered on 06/18/16 07:57; Admin Dose 1 EA; Start 06/14/16 at 00:30 Glucose (Glutose) 15 gm Q15M PRN PO DECREASED GLUCOSE; Start 06/14/16 at 00:30 Glucose (Glutose) 22.5 gm Q15M PRN PO DECREASED GLUCOSE; Start 06/14/16 at 00: 30 Dextrose (D50w Syringe) 25 ml Q15M PRN IV DECREASED GLUCOSE; Start 06/14/16 at 00:30 Dextrose (D50w Syringe) 50 ml Q15M PRN IV DECREASED GLUCOSE; Start 06/14/16 at 00:30 Glucagon (Glucagen) 1 mg Q15M PRN IM DECREASED GLUCOSE; Start 06/14/16 at 00:30 Glucose (Glutose) 15 gm Q15M PRN BUCCAL DECREASED GLUCOSE; Start 06/14/16 at 00 :30 Diagnostic Test (Pha) (Accucheck) 1 ea 02 XX Last administered on 07/11/16 01: 54; Admin Dose 1 EA; Start 06/14/16 at 02:00 Amlodipine Besylate (Norvasc) 5 mg BID PO Last administered on 07/11/16 08:12 ; Admin Dose 5 MG; Start 06/14/16 at 13:30 Clonidine (Catapres) 0.2 mg Q8 PRN PO Systolic >160 Last administered on 02:29; Admin Dose 0.2 MG; Start 06/14/16 at 13:00 Promethazine HCl/ Codeine (Phenergan/ Codeine) 5 ml Q4H PRN PO COUGH Last administered on 06/21/16 18:04; Admin Dose 5 ML; Start 06/15/16 at 00:00 Pantoprazole (Protonix Tab) 40 mg DAILY@06 PO Last administered on 07/11/16 06 :11; Admin Dose 40 MG; Start 06/16/16 at 06:00 Diphenhydramine HCl (Benadryl) 25 mg HS PRN PO INSOMNIA Last administered on 00:54; Admin Dose 25 MG; Start 06/15/16 at 21:30 Hydralazine HCl (Apresoline) 100 mg Q8 PO Last administered on 07/11/16 06:11 ; Admin Dose 100 MG; Start 06/19/16 at 13:00 Bisacodyl (Dulcolax) 10 mg DAILY PRN PO CONSTIPATION Last administered on 22:38; Admin Dose 10 MG; Start 06/22/16 at 11:30 Benazepril HCl (Lotensin) 40 mg BID PO Last administered on 07/11/16 08:12; Admin Dose 40 MG; Start 06/23/16 at 21:00 Hydralazine HCl (Apresoline) 20 mg Q4H PRN IV for SBP more than 170; Start at 05:00 Ondansetron HCl (Zofran Inj) 4 mg Q6H PRN IV NAUSEA AND/OR VOMITING Last administered on 07/03/16 14:45; Admin Dose 4 MG; Start 06/28/16 at 05:00 Lorazepam (Ativan) 1 mg Q6H PRN IV ANXIETY Last administered on 07/02/16 01:46 ; Admin Dose 1 MG; Start 06/28/16 at 05:00 Clonidine (Catapres) 0.1 mg QID PO Last administered on 07/11/16 12:15; Admin Dose 0.1 MG; Start 06/28/16 at 13:00 Cyclobenzaprine HCl (Flexeril) 10 mg TID PO Last administered on 07/11/16 12: 15; Admin Dose 10 MG; Start 07/03/16 at 21:00 Hydromorphone HCl (Dilaudid) 0.5 mg Q4H PRN IV PAIN Last administered on 15:38; Admin Dose 0.5 MG; Start 07/07/16 at 22:00 Hydromorphone HCl (Dilaudid) 1 mg Q3H PRN IV PAIN Last administered on 06:16; Admin Dose 1 MG; Start 07/07/16 at 22:00 Metoprolol Tartrate (Lopressor) 75 mg BID PO Last administered on 07/11/16t 08: 13; Admin Dose 75 MG; Start 07/09/16 at 21:00 Insulin Glargine (Lantus) 10 unit DAILY@20 SC ; Start 07/11/16 at 20:00 CECILIA DAMICO Jul 11, 2016 13:07
--- NOTE | 2016-07-11 14:02 | PN ---
DATE: 07/11/2016 SUBJECTIVE: The patient remains stable this morning with improved aeration and removal of chest tub e. Denies any shortness of breath. Vital signs within normal limits. Labs within normal limits. IMPRESSION: 1. End-stage renal failure on hemodialysis. Continue dialysis as needed. 2. Loculated pleural effusion, status post decortication. 3. History of granulomas. 4. History of positive QuantiFERON Gold. PLAN: 1. Continue ID recommendations. 2. Consider RIPE therapy and discharge home. 3. Encourage out of bed as tolerated. Dictated By: MATILDE DEWEY MD SV/MANJIT Conf#: [id number] DID#: [id number]
--- NOTE | 2016-07-11 14:06 | CONS ---
Date/Time of Note Date/Time of Note DATE: 07/11/16 TIME: 14:03 Assessment/Plan Assessment/Plan Chief Complaint/Hosp Course IMPRESSION: 1. Abnormal electrocardiogram, assess for acute coronary syndrome.-negative troponin x 3 2. History of recent negative stress, May 2015. 3. History of percutaneous transluminal coronary angioplasty and stent placement in 2014 to the left main left anterior descending. No current chest pain. 4. Hypertension, mildly elevated. 5. History of dyslipidemia. 6. Pleural effusion, status post thoracentesis. 7. Possible pneumonia/cough-improved 8. Diabetes mellitus. 9. End-stage renal disease, on hemodialysis. 10. Had WCT-06/27 which was paced beats at approx 100. NO recurrence since .MAC infection/colonization? RECOMMENDATIONS: -Tele -Continue metoprolol -Continue Benazepril -Continue norvasc/hydralazine -Now started on clonidine will f/u bp and if remains elevated will start cardura -Continue asa/statin/plavix -Consider abx's and f/u cx data -Follow volume status with HD for volume removal -Ongoing TB rule out Problems: Consultation Date/Type/Reason Admit Date/Time Jun 13, 2016 at 14:48 Initial Consult Date 06/14/2016 Type of Consultation: Cardiology Reason for Consultation abnl ecg/HTN Referring Provider: EVA COX MD Exam/Review of Systems Vital Signs Vitals Vital Signs Date Time Temp Pulse Resp B/P Pulse Ox O2 Delivery O2 Flow Rate FiO2 07/11/16 12:27 69 07/11/16 11:56 98.0 20 155/67 93 07/09/16 20:00 Nasal Cannula 2.0 07/07/16 21:28 21 Intake and Output 07/10/16 07/10/16 07/11/16 14:59 22:59 06:59 Intake Total 650 ml Output Total 10 ml 400 ml Balance -10 ml 250 ml Exam Review of Systems: CONSTITUTIONAL: No fevers, chills. PULMONARY: No sob CARDIOVASCULAR: No chest pain/palpitations GASTROINTESTINAL: No nausea/vomiting. GENITOURINARY: No hematuria/dysuria. MUSCULOSKELETAL: No myagias/arthalgias. PSYCHIATRIC: The patient denies depression. NEUROLOGIC: No weakness Constitutional: alert, oriented Psych: no complaints Head: normocephalic ENMT: mucosa pink and moist Neck: jvd (8 cm water), supple Respiratory: diminished breath sounds Cardiovascular: regular rate and rhythm Gastrointestinal: non-tender, soft Musculoskeletal: muscle tone (normal) Extremities: edema (none) Neurological: other (NO focal defcits) Results Result Diagram: 07/11/1670407/11/16704 Results 24 hrs Laboratory Tests Test 07/10/16 16:32 07/10/16 21:15 07/11/16 01:48 07/11/16 07:05 Bedside Glucose 176 209 202 Anion Gap 19 H Basophils # 0.1 Basophils % 0.8 Blood Urea Nitrogen 69 H Calcium Level 10.5 H Carbon Dioxide Level 25 Chloride Level 95 L Creatinine 9.24 H Eosinophils # 0.4 Eosinophils % 4.8 Glucose Level 195 Hematocrit 30.3 L Hemoglobin 10.3 L Lymphocytes # 0.8 Lymphocytes % 8.8 L Mean Corpuscular Hemoglobin 32.0 Mean Corpuscular Hemoglobin Concent 34.0 Mean Corpuscular Volume 94.1 Mean Platelet Volume 9.0 Monocytes # 0.8 Monocytes % 9.3 Neutrophils # 6.9 Neutrophils % 75.9 Nucleated Red Blood Cells # 0.0 Nucleated Red Blood Cells % 0.0 Platelet Count 385 Potassium Level 4.5 Red Blood Count 3.22 L Red Cell Distribution Width 13.0 Sodium Level 134 L White Blood Count 9.0 Test 07/11/16 07:24 07/11/16 11:25 Bedside Glucose 201 173 Medications Medications Current Medications IV Flush (NS 10 ml) 10 ml PRN PRN IV FLUSH LINE; Start 06/13/16 at 19:00 Aspirin (Halfprin) 81 mg DAILY PO Last administered on 07/11/16 08:13; Admin Dose 81 MG; Start 06/14/16 at 09:00 Atorvastatin Calcium (Lipitor) 10 mg QHS PO Last administered on 07/10/16 21:17 ; Admin Dose 10 MG; Start 06/14/16 at 21:00 Cholecalciferol (Vitamin D) 400 units DAILY PO Last administered on 07/11/16 08:13; Admin Dose 400 UNITS; Start 06/14/16 at 09:00 Ferrous Sulfate (Ferrous Sulfate (Ec)) 325 mg BID PO Last administered on 08:13; Admin Dose 325 MG; Start 06/14/16 at 09:00 Acetaminophen (Tylenol Tab) 500 mg Q4H PRN PO PAIN AND OR ELEVATED TEMP Last administered on 07/05/16 05:49; Admin Dose 500 MG; Start 06/14/16 at 00:00 Miscellaneous Information 1 ea NOTE XX Last administered on 06/18/16 07:57; Admin Dose 1 EA; Start 06/14/16 at 00:30 Glucose (Glutose) 15 gm Q15M PRN PO DECREASED GLUCOSE; Start 06/14/16 at 00:30 Glucose (Glutose) 22.5 gm Q15M PRN PO DECREASED GLUCOSE; Start 06/14/16 at 00: 30 Dextrose (D50w Syringe) 25 ml Q15M PRN IV DECREASED GLUCOSE; Start 06/14/16 at 00:30 Dextrose (D50w Syringe) 50 ml Q15M PRN IV DECREASED GLUCOSE; Start 06/14/16 at 00:30 Glucagon (Glucagen) 1 mg Q15M PRN IM DECREASED GLUCOSE; Start 06/14/16 at 00:30 Glucose (Glutose) 15 gm Q15M PRN BUCCAL DECREASED GLUCOSE; Start 06/14/16 at 00 :30 Diagnostic Test (Pha) (Accucheck) 1 ea 02 XX Last administered on 07/11/16 01: 54; Admin Dose 1 EA; Start 06/14/16 at 02:00 Amlodipine Besylate (Norvasc) 5 mg BID PO Last administered on 07/11/16 08:12 ; Admin Dose 5 MG; Start 06/14/16 at 13:30 Clonidine (Catapres) 0.2 mg Q8 PRN PO Systolic >160 Last administered on 02:29; Admin Dose 0.2 MG; Start 06/14/16 at 13:00 Promethazine HCl/ Codeine (Phenergan/ Codeine) 5 ml Q4H PRN PO COUGH Last administered on 06/21/16 18:04; Admin Dose 5 ML; Start 06/15/16 at 00:00 Pantoprazole (Protonix Tab) 40 mg DAILY@06 PO Last administered on 07/11/16 06 :11; Admin Dose 40 MG; Start 06/16/16 at 06:00 Diphenhydramine HCl (Benadryl) 25 mg HS PRN PO INSOMNIA Last administered on 00:54; Admin Dose 25 MG; Start 06/15/16 at 21:30 Hydralazine HCl (Apresoline) 100 mg Q8 PO Last administered on 07/11/16 13:39 ; Admin Dose 100 MG; Start 06/19/16 at 13:00 Bisacodyl (Dulcolax) 10 mg DAILY PRN PO CONSTIPATION Last administered on 22:38; Admin Dose 10 MG; Start 06/22/16 at 11:30 Benazepril HCl (Lotensin) 40 mg BID PO Last administered on 07/11/16 08:12; Admin Dose 40 MG; Start 06/23/16 at 21:00 Hydralazine HCl (Apresoline) 20 mg Q4H PRN IV for SBP more than 170; Start at 05:00 Ondansetron HCl (Zofran Inj) 4 mg Q6H PRN IV NAUSEA AND/OR VOMITING Last administered on 07/03/16 14:45; Admin Dose 4 MG; Start 06/28/16 at 05:00 Lorazepam (Ativan) 1 mg Q6H PRN IV ANXIETY Last administered on 07/02/16 01:46 ; Admin Dose 1 MG; Start 06/28/16 at 05:00 Clonidine (Catapres) 0.1 mg QID PO Last administered on 07/11/16 12:15; Admin Dose 0.1 MG; Start 06/28/16 at 13:00 Cyclobenzaprine HCl (Flexeril) 10 mg TID PO Last administered on 07/11/16 12: 15; Admin Dose 10 MG; Start 07/03/16 at 21:00 Hydromorphone HCl (Dilaudid) 0.5 mg Q4H PRN IV PAIN Last administered on 15:38; Admin Dose 0.5 MG; Start 07/07/16 at 22:00 Hydromorphone HCl (Dilaudid) 1 mg Q3H PRN IV PAIN Last administered on 06:16; Admin Dose 1 MG; Start 07/07/16 at 22:00 Metoprolol Tartrate (Lopressor) 75 mg BID PO Last administered on 07/11/16 08: 13; Admin Dose 75 MG; Start 07/09/16 at 21:00 Insulin Glargine (Lantus) 10 unit DAILY@20 SC ; Start 07/11/16 at 20:00 SHERITA SCOTT Jul 11, 2016 14:06
--- NOTE | 2016-07-11 14:33 | CONS ---
Date/Time of Note Date/Time of Note DATE: 07/11/16 TIME: 14:24 Assessment/Plan Assessment/Plan Chief Complaint/Hosp Course REVISED assessment/impression - h/o recurrent pleural effusion requiring thoracentesis approximately once a year, last performed in 04/2016 - s/p R VATS, total pulmonary decortication, R pleurodesis on 06/30/2016. Biopsy was negative for fungal stain and AFB stain (micro lab and pathology department), as well as malignancy. It showed granulomatous inflammation with focal necrosis and extensive hyalinization. 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 Per Pt, his past PPD was done in 2013, and was negative. 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 - DM - ESRD on HD - CAD s/p CABG in 2010 and cardiac stent in 2013 - HIV screen negative in 07/2016 tested at [facility] REVISED recommendations - sputum for AFB smear was negative on 07/06, 07/08 and 07/09. Cx are in process - Mycobacterium tuberculosis DNA probe (PCR) to the 1st sputum sample is in process, will review the results - After I wrote today's progress note this morning, I learned from Lindsey, our infection communications controller that Pt had received treatment for mycobacterium tuberculosis between 1997 and 1998. Lindsey is sending Pt's records and notes during this admission to TB control unit at [facility] today. TB control will review them and make further recommendations. - If TB control at [facility] requests more tests on this Pt or recommends re-treatment , we will order them accordingly. - Lindsey and I recommend that Pt remain under airborne precautions until we get directed by [facility] management d/w Pt, his RN and Lindsey the total time I took to care for this Pt today was 50 min Problems: Consultation Date/Type/Reason Admit Date/Time Jun 13, 2016 at 14:48 Initial Consult Date 07/04/16 Type of Consultation: ID Referring Provider: EVA COX MD Exam/Review of Systems Vital Signs Vitals Vital Signs Date Time Temp Pulse Resp B/P Pulse Ox O2 Delivery O2 Flow Rate FiO2 07/11/16 12:27 69 07/11/16 11:56 98.0 20 155/67 93 07/09/16 20:00 Nasal Cannula 2.0 07/07/16 21:28 21 Intake and Output 07/10/16 07/10/16 07/11/16 15:00 23:00 07:00 Intake Total 650 ml Output Total 10 ml 400 ml Balance -10 ml 250 ml Results Result Diagram: 07/11/1670407/11/16704 Results 24 hrs Laboratory Tests Test 07/10/16 16:32 07/10/16 21:15 07/11/16 01:48 07/11/16 07:05 Bedside Glucose 176 209 202 Anion Gap 19 H Basophils # 0.1 Basophils % 0.8 Blood Urea Nitrogen 69 H Calcium Level 10.5 H Carbon Dioxide Level 25 Chloride Level 95 L Creatinine 9.24 H Eosinophils # 0.4 Eosinophils % 4.8 Glucose Level 195 Hematocrit 30.3 L Hemoglobin 10.3 L Lymphocytes # 0.8 Lymphocytes % 8.8 L Mean Corpuscular Hemoglobin 32.0 Mean Corpuscular Hemoglobin Concent 34.0 Mean Corpuscular Volume 94.1 Mean Platelet Volume 9.0 Monocytes # 0.8 Monocytes % 9.3 Neutrophils # 6.9 Neutrophils % 75.9 Nucleated Red Blood Cells # 0.0 Nucleated Red Blood Cells % 0.0 Platelet Count 385 Potassium Level 4.5 Red Blood Count 3.22 L Red Cell Distribution Width 13.0 Sodium Level 134 L White Blood Count 9.0 Test 07/11/16 07:24 07/11/16 11:25 Bedside Glucose 201 173 Medications Medications Current Medications IV Flush (NS 10 ml) 10 ml PRN PRN IV FLUSH LINE; Start 06/13/16 at 19:00 Aspirin (Halfprin) 81 mg DAILY PO Last administered on 07/11/16 08:13; Admin Dose 81 MG; Start 06/14/16 at 09:00 Atorvastatin Calcium (Lipitor) 10 mg QHS PO Last administered on 07/10/16 21:17 ; Admin Dose 10 MG; Start 06/14/16 at 21:00 Cholecalciferol (Vitamin D) 400 units DAILY PO Last administered on 07/11/16 08:13; Admin Dose 400 UNITS; Start 06/14/16 at 09:00 Ferrous Sulfate (Ferrous Sulfate (Ec)) 325 mg BID PO Last administered on 08:13; Admin Dose 325 MG; Start 06/14/16 at 09:00 Acetaminophen (Tylenol Tab) 500 mg Q4H PRN PO PAIN AND OR ELEVATED TEMP Last administered on 07/05/16 05:49; Admin Dose 500 MG; Start 06/14/16 at 00:00 Miscellaneous Information 1 ea NOTE XX Last administered on 06/18/16 07:57; Admin Dose 1 EA; Start 06/14/16 at 00:30 Glucose (Glutose) 15 gm Q15M PRN PO DECREASED GLUCOSE; Start 06/14/16 at 00:30 Glucose (Glutose) 22.5 gm Q15M PRN PO DECREASED GLUCOSE; Start 06/14/16 at 00: 30 Dextrose (D50w Syringe) 25 ml Q15M PRN IV DECREASED GLUCOSE; Start 06/14/16 at 00:30 Dextrose (D50w Syringe) 50 ml Q15M PRN IV DECREASED GLUCOSE; Start 06/14/16 at 00:30 Glucagon (Glucagen) 1 mg Q15M PRN IM DECREASED GLUCOSE; Start 06/14/16 at 00:30 Glucose (Glutose) 15 gm Q15M PRN BUCCAL DECREASED GLUCOSE; Start 06/14/16 at 00 :30 Diagnostic Test (Pha) (Accucheck) 1 ea 02 XX Last administered on 07/11/16 01: 54; Admin Dose 1 EA; Start 06/14/16 at 02:00 Amlodipine Besylate (Norvasc) 5 mg BID PO Last administered on 07/11/16 08:12 ; Admin Dose 5 MG; Start 06/14/16 at 13:30 Clonidine (Catapres) 0.2 mg Q8 PRN PO Systolic >160 Last administered on 02:29; Admin Dose 0.2 MG; Start 06/14/16 at 13:00 Promethazine HCl/ Codeine (Phenergan/ Codeine) 5 ml Q4H PRN PO COUGH Last administered on 06/21/16 18:04; Admin Dose 5 ML; Start 06/15/16 at 00:00 Pantoprazole (Protonix Tab) 40 mg DAILY@06 PO Last administered on 07/11/16 06 :11; Admin Dose 40 MG; Start 06/16/16 at 06:00 Diphenhydramine HCl (Benadryl) 25 mg HS PRN PO INSOMNIA Last administered on 00:54; Admin Dose 25 MG; Start 06/15/16 at 21:30 Hydralazine HCl (Apresoline) 100 mg Q8 PO Last administered on 07/11/16 13:39 ; Admin Dose 100 MG; Start 06/19/16 at 13:00 Bisacodyl (Dulcolax) 10 mg DAILY PRN PO CONSTIPATION Last administered on 22:38; Admin Dose 10 MG; Start 06/22/16 at 11:30 Benazepril HCl (Lotensin) 40 mg BID PO Last administered on 07/11/16 08:12; Admin Dose 40 MG; Start 06/23/16 at 21:00 Hydralazine HCl (Apresoline) 20 mg Q4H PRN IV for SBP more than 170; Start at 05:00 Ondansetron HCl (Zofran Inj) 4 mg Q6H PRN IV NAUSEA AND/OR VOMITING Last administered on 07/03/16 14:45; Admin Dose 4 MG; Start 06/28/16 at 05:00 Lorazepam (Ativan) 1 mg Q6H PRN IV ANXIETY Last administered on 07/02/16 01:46 ; Admin Dose 1 MG; Start 06/28/16 at 05:00 Clonidine (Catapres) 0.1 mg QID PO Last administered on 07/11/16 12:15; Admin Dose 0.1 MG; Start 06/28/16 at 13:00 Cyclobenzaprine HCl (Flexeril) 10 mg TID PO Last administered on 07/11/16 12: 15; Admin Dose 10 MG; Start 07/03/16 at 21:00 Hydromorphone HCl (Dilaudid) 0.5 mg Q4H PRN IV PAIN Last administered on 15:38; Admin Dose 0.5 MG; Start 07/07/16 at 22:00 Hydromorphone HCl (Dilaudid) 1 mg Q3H PRN IV PAIN Last administered on 06:16; Admin Dose 1 MG; Start 07/07/16 at 22:00 Metoprolol Tartrate (Lopressor) 75 mg BID PO Last administered on 07/11/16 08: 13; Admin Dose 75 MG; Start 07/09/16 at 21:00 Insulin Glargine (Lantus) 10 unit DAILY@20 SC ; Start 07/11/16 at 20:00 YUMIKO NICHOLSON M.D. Jul 11, 2016 14:33
--- NOTE | 2016-07-11 18:41 | CONS ---
Date/Time of Note Date/Time of Note DATE: 07/11/16 TIME: 18:40 Assessment/Plan Assessment/Plan Chief Complaint/Hosp Course ESRD HTN PNEUMONIA better PLEURAL EFFUSION s/p vats ctube out hyperkalemia HX TB GOLD TEST +r/o ptb ANEMIA PLAN PER CARDIO NON COMPLIANCE W HD hd refused hd 3 x wk HD T/THURSDAY PT REFUSED HD ON THURSDAY per pcp fluid res PER SURGERY per id Problems: Consultation Date/Type/Reason Admit Date/Time Jun 13, 2016 at 14:48 Type of Consultation: RENAL Referring Provider: EVA COX MD 24 HR Interval Summary Constitutional: other (FEELING BETTER) Exam/Review of Systems Vital Signs Vitals Vital Signs Date Time Temp Pulse Resp B/P Pulse Ox O2 Delivery O2 Flow Rate FiO2 07/11/16 17:18 69 07/11/16 15:00 97.7 20 145/57 95 07/09/16 20:00 Nasal Cannula 2.0 07/07/16 21:28 21 Intake and Output 07/10/16 07/10/16 07/11/16 15:00 23:00 07:00 Intake Total 650 ml Output Total 10 ml 400 ml Balance -10 ml 250 ml Exam Respiratory: clear to auscultation Cardiovascular: regular rate and rhythm Gastrointestinal: bowel sounds (+), soft Results Result Diagram: 07/11/1670407/11/16 07 Results 24 hrs Laboratory Tests Test 07/10/16 21:15 07/11/16 01:48 07/11/16 07:05 07/11/16 07:24 Bedside Glucose 209 202 201 Anion Gap 19 H Basophils # 0.1 Basophils % 0.8 Blood Urea Nitrogen 69 H Calcium Level 10.5 H Carbon Dioxide Level 25 Chloride Level 95 L Creatinine 9.24 H Eosinophils # 0.4 Eosinophils % 4.8 Glucose Level 195 Hematocrit 30.3 L Hemoglobin 10.3 L Lymphocytes # 0.8 Lymphocytes % 8.8 L Mean Corpuscular Hemoglobin 32.0 Mean Corpuscular Hemoglobin Concent 34.0 Mean Corpuscular Volume 94.1 Mean Platelet Volume 9.0 Monocytes # 0.8 Monocytes % 9.3 Neutrophils # 6.9 Neutrophils % 75.9 Nucleated Red Blood Cells # 0.0 Nucleated Red Blood Cells % 0.0 Platelet Count 385 Potassium Level 4.5 Red Blood Count 3.22 L Red Cell Distribution Width 13.0 Sodium Level 134 L White Blood Count 9.0 Test 07/11/16 11:25 07/11/16 16:35 Bedside Glucose 173 147 Medications Medications Current Medications IV Flush (NS 10 ml) 10 ml PRN PRN IV FLUSH LINE; Start 06/13/16 at 19:00 Aspirin (Halfprin) 81 mg DAILY PO Last administered on 07/11/16 08:13; Admin Dose 81 MG; Start 06/14/16 at 09:00 Atorvastatin Calcium (Lipitor) 10 mg QHS PO Last administered on 07/10/16 21:17 ; Admin Dose 10 MG; Start 06/14/16 at 21:00 Cholecalciferol (Vitamin D) 400 units DAILY PO Last administered on 07/11/16 08:13; Admin Dose 400 UNITS; Start 06/14/16 at 09:00 Ferrous Sulfate (Ferrous Sulfate (Ec)) 325 mg BID PO Last administered on 08:13; Admin Dose 325 MG; Start 06/14/16 at 09:00 Acetaminophen (Tylenol Tab) 500 mg Q4H PRN PO PAIN AND OR ELEVATED TEMP Last administered on 07/05/16 05:49; Admin Dose 500 MG; Start 06/14/16 at 00:00 Miscellaneous Information 1 ea NOTE XX Last administered on 06/18/16 07:57; Admin Dose 1 EA; Start 06/14/16 at 00:30 Glucose (Glutose) 15 gm Q15M PRN PO DECREASED GLUCOSE; Start 06/14/16 at 00:30 Glucose (Glutose) 22.5 gm Q15M PRN PO DECREASED GLUCOSE; Start 06/14/16 at 00: 30 Dextrose (D50w Syringe) 25 ml Q15M PRN IV DECREASED GLUCOSE; Start 06/14/16 at 00:30 Dextrose (D50w Syringe) 50 ml Q15M PRN IV DECREASED GLUCOSE; Start 06/14/16 at 00:30 Glucagon (Glucagen) 1 mg Q15M PRN IM DECREASED GLUCOSE; Start 06/14/16 at 00:30 Glucose (Glutose) 15 gm Q15M PRN BUCCAL DECREASED GLUCOSE; Start 06/14/16 at 00 :30 Diagnostic Test (Pha) (Accucheck) 1 ea 02 XX Last administered on 07/11/16 01: 54; Admin Dose 1 EA; Start 06/14/16 at 02:00 Amlodipine Besylate (Norvasc) 5 mg BID PO Last administered on 07/11/16 08:12 ; Admin Dose 5 MG; Start 06/14/16 at 13:30 Clonidine (Catapres) 0.2 mg Q8 PRN PO Systolic >160 Last administered on 02:29; Admin Dose 0.2 MG; Start 06/14/16 at 13:00 Promethazine HCl/ Codeine (Phenergan/ Codeine) 5 ml Q4H PRN PO COUGH Last administered on 06/21/16 18:04; Admin Dose 5 ML; Start 06/15/16 at 00:00 Pantoprazole (Protonix Tab) 40 mg DAILY@06 PO Last administered on 07/11/16 06 :11; Admin Dose 40 MG; Start 06/16/16 at 06:00 Diphenhydramine HCl (Benadryl) 25 mg HS PRN PO INSOMNIA Last administered on 00:54; Admin Dose 25 MG; Start 06/15/16 at 21:30 Hydralazine HCl (Apresoline) 100 mg Q8 PO Last administered on 07/11/16 13:39 ; Admin Dose 100 MG; Start 06/19/16 at 13:00 Bisacodyl (Dulcolax) 10 mg DAILY PRN PO CONSTIPATION Last administered on 22:38; Admin Dose 10 MG; Start 06/22/16 at 11:30 Benazepril HCl (Lotensin) 40 mg BID PO Last administered on 07/11/16 08:12; Admin Dose 40 MG; Start 06/23/16 at 21:00 Hydralazine HCl (Apresoline) 20 mg Q4H PRN IV for SBP more than 170; Start at 05:00 Ondansetron HCl (Zofran Inj) 4 mg Q6H PRN IV NAUSEA AND/OR VOMITING Last administered on 07/03/16 14:45; Admin Dose 4 MG; Start 06/28/16 at 05:00 Lorazepam (Ativan) 1 mg Q6H PRN IV ANXIETY Last administered on 07/02/16 01:46 ; Admin Dose 1 MG; Start 06/28/16 at 05:00 Clonidine (Catapres) 0.1 mg QID PO Last administered on 07/11/16 16:39; Admin Dose 0.1 MG; Start 06/28/16 at 13:00 Cyclobenzaprine HCl (Flexeril) 10 mg TID PO Last administered on 07/11/16 12: 15; Admin Dose 10 MG; Start 07/03/16 at 21:00 Hydromorphone HCl (Dilaudid) 0.5 mg Q4H PRN IV PAIN Last administered on 15:38; Admin Dose 0.5 MG; Start 07/07/16 at 22:00 Hydromorphone HCl (Dilaudid) 1 mg Q3H PRN IV PAIN Last administered on 06:16; Admin Dose 1 MG; Start 07/07/16 at 22:00 Metoprolol Tartrate (Lopressor) 75 mg BID PO Last administered on 07/11/16 08: 13; Admin Dose 75 MG; Start 07/09/16 at 21:00 Insulin Glargine (Lantus) 10 unit DAILY@20 SC ; Start 07/11/16 at 20:00 PAOLA MOODY MD Jul 11, 2016 18:41
[2016-07-11] MEDS ORDERED: INSULIN GLARGINE [LANtus] 3 ML PEN SC SCH (21:00)
[2016-07-11] MEDS: ATORVASTATIN 10 MG TAB PO SCH (21:17)
[2016-07-11] MEDS: INSULIN GLARGINE [LANtus] 3 ML PEN SC SCH (22:18)
[2016-07-12] VITALS (20 sets, daily range): BP systolic 122–162; BP diastolic 51–65; PULSE 68–75; RESP 18–19
[2016-07-12] MEDS: ACCU-CHEK XX SCH ×5 (02:00→21:00)
[2016-07-12] MEDS: PANTOPRAZOLE (EC) 40 MG TAB PO SCH (06:31)
[2016-07-12 07:38] LABS: ADD SCAN DIFF NO
[2016-07-12 07:44] LABS: BASOPHIL # 0.1 10^3/ul (0.0-0.1); BASOPHILS % 0.7 % (0.0-2.0); EOSINOPHILS # 0.4 10^3/ul (0.0-0.5); EOSINOPHILS % 3.8 % (0.0-7.0); HEMATOCRIT 29.9 % (42.0-52.0); HEMOGLOBIN 9.9 g/dl (14.0-18.0); LYMPHOCYTES % 8.7 % (15.0-51.0); MEAN CORPUSCULAR HEMOGLOBIN 31.4 pg (29.0-33.0); MEAN CORPUSCULAR HGB CONC 33.1 g/dl (32.0-37.0); MEAN CORPUSCULAR VOLUME 94.9 fl (82.0-101.0); MEAN PLATELET VOLUME 9.1 fl (7.4-10.4); MONOCYTE # 0.8 10^3/ul (0.3-0.9); MONOCYTES % 6.8 % (0.0-11.0); NEUTROPHILS % 79.6 % (39.0-77.0); PLATELET COUNT 378 10^3/UL (140-415); RED BLOOD COUNT 3.15 10^6/ul (4.70-6.10); WHITE BLOOD COUNT 11.3 10^3/ul (4.8-10.8)
[2016-07-12 07:57] LABS: POTASSIUM 4.6 mmol/L (3.5-5.1)
[2016-07-12 08:00] LABS: CREATININE 9.75 mg/dl (0.61-1.24)
[2016-07-12] MEDS: SEVELAMER CARBONATE 0.8 GM PKT PO SCH ×3 (08:00→18:24)
[2016-07-12] MEDS: LEVALBUTEROL (HFA) 15 GM INHALER INH SCH ×3 (08:00→16:55)
[2016-07-12] MEDS: INSULIN ASPART [NOVOLOG] 3 ML PEN SC SCH ×7 (08:00→21:41)
[2016-07-12 08:01] LABS: CALCIUM 10.8 mg/dl (8.4-10.2)
[2016-07-12] MEDS: BENAZEPRIL 40 MG TAB PO SCH ×2 (08:38→21:31)
[2016-07-12] MEDS: METOPROLOL 25 MG TAB PO SCH ×2 (08:38→21:31)
[2016-07-12] MEDS: CYCLOBENZAPRINE 10 MG TAB PO SCH ×3 (08:38→21:31)
[2016-07-12] MEDS: AMLODIPINE 5 MG TAB PO SCH ×2 (08:39→21:31)
[2016-07-12] MEDS: FERROUS SULFATE (EC) 325 MG TAB PO SCH ×2 (12:40→21:30)
[2016-07-12] MEDS: ASPIRIN (EC) 81 MG TAB PO SCH (12:40)
[2016-07-12] MEDS: CHOLECALCIFEROL 400 UNITS TAB PO SCH (12:41)
[2016-07-12] MEDS: CALCIUM ACETATE 667 MG CAP PO SCH ×2 (13:15→18:24)
--- NOTE | 2016-07-12 14:56 | CONS ---
Date/Time of Note Date/Time of Note DATE: 07/12/16 TIME: 14:49 Assessment/Plan Assessment/Plan Additional Assessment/Plan assessment/impression - h/o recurrent pleural effusion requiring thoracentesis approximately once a year, last performed in 04/2016 - s/p R VATS, total pulmonary decortication, R pleurodesis on 06/30/2016. Biopsy was negative for fungal stain and AFB stain (micro lab and pathology department), as well as malignancy. It showed granulomatous inflammation with focal necrosis and extensive hyalinization. Chest tube was removed. - positive quantiferon TB gold status of unknown duration. Per Pt, his past PPD was done in 2013, and was negative. 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 - DM - ESRD on HD - CAD s/p CABG in 2010 and cardiac stent in 2013 - HIV screen negative in 07/2016 tested at [facility] recommendations - Start therapy for tuberculosis with: 1) Isoniazid 300mg PO daily after HD (on HD days), 2) Rifampin 600mg PO daily after HD on HD days, 3) Pyrazinamide ~25mg/ kg = 2g PO TIW after HD, 4) Ethambutol 20mg/kg = 1500mg PO TIW after HD - Continue [place] isolation until the patient has been on anti-TB therapy for five days ([place] standard law) Consultation Date/Type/Reason Admit Date/Time Jun 13, 2016 at 14:48 Initial Consult Date 07/04/16 Type of Consultation: Infectious Diseases Referring Provider: EVA COX MD 24 HR Interval Summary Free Text/Dictation No significant changes. I spoke with Dr. Greene at [facility] TB Control last night and he confirmed that this patient had been treated for MTb in [address] [facility]. However , it was unknown if the patient completed therapy under DOT. If he was not compliant that would increase the risk of recurrence (~4% chance overall). This also increases the risk of drug resistant disease, it would therefore be great if an isolate is obtained in culture. If nothing grows, we can try to PCR off of tissue. If the PCR is successful then we can PCR for genetic markers of resistance. Exam/Review of Systems Vital Signs Vitals Vital Signs Date Time Temp Pulse Resp B/P Pulse Ox O2 Delivery O2 Flow Rate FiO2 07/12/16 13:29 69 07/12/16 12:29 98.0 19 143/51 96 07/09/16 20:00 Nasal Cannula 2.0 Intake and Output 07/11/16 07/11/16 07/12/16 15:00 23:00 07:00 Intake Total 450 ml 400 ml Output Total 300 ml Balance 150 ml 400 ml Exam Sitting comfortably in bed on RA Results Result Diagram: 07/12/16 0614 07/12/16 0644 Results 24 hrs Laboratory Tests Test 07/11/16 16:35 07/11/16 21:14 07/12/16 06:14 07/12/16 06:44 Bedside Glucose 147 147 Basophils # 0.1 Basophils % 0.7 Eosinophils # 0.4 Eosinophils % 3.8 Hematocrit 29.9 L Hemoglobin 9.9 L Lymphocytes # 1.0 Lymphocytes % 8.7 L Mean Corpuscular Hemoglobin 31.4 Mean Corpuscular Hemoglobin Concent 33.1 Mean Corpuscular Volume 94.9 Mean Platelet Volume 9.1 Monocytes # 0.8 Monocytes % 6.8 Neutrophils # 9.0 H Neutrophils % 79.6 H Nucleated Red Blood Cells # 0.0 Nucleated Red Blood Cells % 0.0 Platelet Count 378 Red Blood Count 3.15 L Red Cell Distribution Width 13.0 White Blood Count 11.3 #H Anion Gap 19 H Blood Urea Nitrogen 76 H Calcium Level 10.8 H Carbon Dioxide Level 26 Chloride Level 94 L Creatinine 9.75 H Glucose Level 104 # Potassium Level 4.6 Sodium Level 134 L Test 07/12/16 07:55 07/12/16 12:40 Bedside Glucose 126 132 Medications Medications Current Medications IV Flush (NS 10 ml) 10 ml PRN PRN IV FLUSH LINE; Start 06/13/16 at 19:00 Aspirin (Halfprin) 81 mg DAILY PO Last administered on 07/12/16t 12:40; Admin Dose 81 MG; Start 06/14/16 at 09:00 Atorvastatin Calcium (Lipitor) 10 mg QHS PO Last administered on 07/11/16 21: 17; Admin Dose 10 MG; Start 06/14/16 at 21:00 Cholecalciferol (Vitamin D) 400 units DAILY PO Last administered on 07/12/16 12:41; Admin Dose 400 UNITS; Start 06/14/16 at 09:00 Ferrous Sulfate (Ferrous Sulfate (Ec)) 325 mg BID PO Last administered on 12:40; Admin Dose 325 MG; Start 06/14/16 at 09:00 Acetaminophen (Tylenol Tab) 500 mg Q4H PRN PO PAIN AND OR ELEVATED TEMP Last administered on 07/05/16 05:49; Admin Dose 500 MG; Start 06/14/16 at 00:00 Miscellaneous Information 1 ea NOTE XX Last administered on 06/18/16 07:57; Admin Dose 1 EA; Start 06/14/16 at 00:30 Glucose (Glutose) 15 gm Q15M PRN PO DECREASED GLUCOSE; Start 06/14/16 at 00:30 Glucose (Glutose) 22.5 gm Q15M PRN PO DECREASED GLUCOSE; Start 06/14/16 at 00: 30 Dextrose (D50w Syringe) 25 ml Q15M PRN IV DECREASED GLUCOSE; Start 06/14/16 at 00:30 Dextrose (D50w Syringe) 50 ml Q15M PRN IV DECREASED GLUCOSE; Start 06/14/16 at 00:30 Glucagon (Glucagen) 1 mg Q15M PRN IM DECREASED GLUCOSE; Start 06/14/16 at 00:30 Glucose (Glutose) 15 gm Q15M PRN BUCCAL DECREASED GLUCOSE; Start 06/14/16 at 00 :30 Diagnostic Test (Pha) (Accucheck) 1 ea 02 XX Last administered on 07/11/16 01: 54; Admin Dose 1 EA; Start 06/14/16 at 02:00 Amlodipine Besylate (Norvasc) 5 mg BID PO Last administered on 07/11/16 21:17 ; Admin Dose 5 MG; Start 06/14/16 at 13:30 Clonidine (Catapres) 0.2 mg Q8 PRN PO Systolic >160 Last administered on 02:29; Admin Dose 0.2 MG; Start 06/14/16 at 13:00 Promethazine HCl/ Codeine (Phenergan/ Codeine) 5 ml Q4H PRN PO COUGH Last administered on 06/21/16 18:04; Admin Dose 5 ML; Start 06/15/16 at 00:00 Pantoprazole (Protonix Tab) 40 mg DAILY@06 PO Last administered on 07/12/16 06 :31; Admin Dose 40 MG; Start 06/16/16 at 06:00 Diphenhydramine HCl (Benadryl) 25 mg HS PRN PO INSOMNIA Last administered on 00:54; Admin Dose 25 MG; Start 06/15/16 at 21:30 Hydralazine HCl (Apresoline) 100 mg Q8 PO Last administered on 07/12/16 14:35 ; Admin Dose 100 MG; Start 06/19/16 at 13:00 Bisacodyl (Dulcolax) 10 mg DAILY PRN PO CONSTIPATION Last administered on 22:38; Admin Dose 10 MG; Start 06/22/16 at 11:30 Benazepril HCl (Lotensin) 40 mg BID PO Last administered on 07/11/16 21:17; Admin Dose 40 MG; Start 06/23/16 at 21:00 Hydralazine HCl (Apresoline) 20 mg Q4H PRN IV for SBP more than 170; Start at 05:00 Ondansetron HCl (Zofran Inj) 4 mg Q6H PRN IV NAUSEA AND/OR VOMITING Last administered on 07/03/16 14:45; Admin Dose 4 MG; Start 06/28/16 at 05:00 Lorazepam (Ativan) 1 mg Q6H PRN IV ANXIETY Last administered on 07/02/16 01:46 ; Admin Dose 1 MG; Start 06/28/16 at 05:00 Clonidine (Catapres) 0.1 mg QID PO Last administered on 07/12/16 13:15; Admin Dose 0.1 MG; Start 06/28/16 at 13:00 Cyclobenzaprine HCl (Flexeril) 10 mg TID PO Last administered on 07/12/16 13: 15; Admin Dose 10 MG; Start 07/03/16 at 21:00 Hydromorphone HCl (Dilaudid) 0.5 mg Q4H PRN IV PAIN Last administered on 15:38; Admin Dose 0.5 MG; Start 07/07/16 at 22:00 Hydromorphone HCl (Dilaudid) 1 mg Q3H PRN IV PAIN Last administered on 06:16; Admin Dose 1 MG; Start 07/07/16 at 22:00 Metoprolol Tartrate (Lopressor) 75 mg BID PO Last administered on 07/11/16 21: 16; Admin Dose 75 MG; Start 07/09/16 at 21:00 Insulin Glargine (Lantus) 10 unit DAILY@20 SC Last administered on 07/11/16 22 :18; Admin Dose 10 UNIT; Start 07/11/16 at 20:00 ANGELIA HERNANDEZ Jul 12, 2016 14:56
--- NOTE | 2016-07-12 16:50 | CONS ---
Date/Time of Note Date/Time of Note DATE: 07/12/16 TIME: 16:48 Assessment/Plan Assessment/Plan Chief Complaint/Hosp Course IMPRESSION: 1. Abnormal electrocardiogram, assess for acute coronary syndrome.-negative troponin x 3 2. History of recent negative stress, May 2015. 3. History of percutaneous transluminal coronary angioplasty and stent placement in 2014 to the left main left anterior descending. No current chest pain. 4. Hypertension, mildly elevated. 5. History of dyslipidemia. 6. Pleural effusion, status post thoracentesis. 7. Possible pneumonia/cough-improved 8. Diabetes mellitus. 9. End-stage renal disease, on hemodialysis. 10. Had WCT-06/27 which was paced beats at approx 100. NO recurrence since .MAC infection/colonization? RECOMMENDATIONS: -Tele -Continue metoprolol -Continue Benazepril -Continue norvasc/hydralazine -Now started on clonidine will f/u bp -consider intiation of cardura to improve overalll BP control -Continue asa/statin/plavix -Consider abx's and f/u cx data -Follow volume status with HD for volume removal -Now on treatment for TB Problems: Consultation Date/Type/Reason Admit Date/Time Jun 13, 2016 at 14:48 Initial Consult Date 06/14/2016 Type of Consultation: Cardiology Reason for Consultation HTN Referring Provider: EVA COX MD Exam/Review of Systems Vital Signs Vitals Vital Signs Date Time Temp Pulse Resp B/P Pulse Ox O2 Delivery O2 Flow Rate FiO2 07/12/16 16:26 98.4 79 19 156/63 96 07/09/16 20:00 Nasal Cannula 2.0 Intake and Output 07/11/16 07/11/16 07/12/16 15:00 23:00 07:00 Intake Total 450 ml 400 ml Output Total 300 ml Balance 150 ml 400 ml Exam Review of Systems: CONSTITUTIONAL: No fevers, chills. PULMONARY: No sob CARDIOVASCULAR: No chest pain/palpitations GASTROINTESTINAL: No nausea/vomiting. GENITOURINARY: No hematuria/dysuria. MUSCULOSKELETAL: No myagias/arthalgias. PSYCHIATRIC: The patient denies depression. NEUROLOGIC: No weakness Constitutional: alert Psych: no complaints Head: normocephalic Neck: jvd (9 cm water), supple Respiratory: diminished breath sounds (at bases/B) Cardiovascular: regular rate and rhythm Gastrointestinal: non-tender, soft Musculoskeletal: muscle tone (normal) Extremities: pitting pedal edema (TRace/B) Neurological: other (No focal deficits) Results Result Diagram: 07/12/16 0614 07/12/16 0644 Results 24 hrs Laboratory Tests Test 07/11/16 21:14 07/12/16 06:14 07/12/16 06:44 07/12/16 07:55 Bedside Glucose 147 126 Basophils # 0.1 Basophils % 0.7 Eosinophils # 0.4 Eosinophils % 3.8 Hematocrit 29.9 L Hemoglobin 9.9 L Lymphocytes # 1.0 Lymphocytes % 8.7 L Mean Corpuscular Hemoglobin 31.4 Mean Corpuscular Hemoglobin Concent 33.1 Mean Corpuscular Volume 94.9 Mean Platelet Volume 9.1 Monocytes # 0.8 Monocytes % 6.8 Neutrophils # 9.0 H Neutrophils % 79.6 H Nucleated Red Blood Cells # 0.0 Nucleated Red Blood Cells % 0.0 Platelet Count 378 Red Blood Count 3.15 L Red Cell Distribution Width 13.0 White Blood Count 11.3 #H Anion Gap 19 H Blood Urea Nitrogen 76 H Calcium Level 10.8 H Carbon Dioxide Level 26 Chloride Level 94 L Creatinine 9.75 H Glucose Level 104 # Potassium Level 4.6 Sodium Level 134 L Test 07/12/16 12:40 Bedside Glucose 132 Medications Medications Current Medications IV Flush (NS 10 ml) 10 ml PRN PRN IV FLUSH LINE; Start 06/13/16 at 19:00 Aspirin (Halfprin) 81 mg DAILY PO Last administered on 07/12/16 12:40; Admin Dose 81 MG; Start 06/14/16 at 09:00 Atorvastatin Calcium (Lipitor) 10 mg QHS PO Last administered on 07/11/16 21: 17; Admin Dose 10 MG; Start 06/14/16 at 21:00 Cholecalciferol (Vitamin D) 400 units DAILY PO Last administered on 07/12/16 12:41; Admin Dose 400 UNITS; Start 06/14/16 at 09:00 Ferrous Sulfate (Ferrous Sulfate (Ec)) 325 mg BID PO Last administered on 12:40; Admin Dose 325 MG; Start 06/14/16 at 09:00 Acetaminophen (Tylenol Tab) 500 mg Q4H PRN PO PAIN AND OR ELEVATED TEMP Last administered on 07/05/16 05:49; Admin Dose 500 MG; Start 06/14/16 at 00:00 Miscellaneous Information 1 ea NOTE XX Last administered on 06/18/16 07:57; Admin Dose 1 EA; Start 06/14/16 at 00:30 Glucose (Glutose) 15 gm Q15M PRN PO DECREASED GLUCOSE; Start 06/14/16 at 00:30 Glucose (Glutose) 22.5 gm Q15M PRN PO DECREASED GLUCOSE; Start 06/14/16 at 00: 30 Dextrose (D50w Syringe) 25 ml Q15M PRN IV DECREASED GLUCOSE; Start 06/14/16 at 00:30 Dextrose (D50w Syringe) 50 ml Q15M PRN IV DECREASED GLUCOSE; Start 06/14/16 at 00:30 Glucagon (Glucagen) 1 mg Q15M PRN IM DECREASED GLUCOSE; Start 06/14/16 at 00:30 Glucose (Glutose) 15 gm Q15M PRN BUCCAL DECREASED GLUCOSE; Start 06/14/16 at 00 :30 Diagnostic Test (Pha) (Accucheck) 1 ea 02 XX Last administered on 07/11/16 01: 54; Admin Dose 1 EA; Start 06/14/16 at 02:00 Amlodipine Besylate (Norvasc) 5 mg BID PO Last administered on 07/11/16 21:17 ; Admin Dose 5 MG; Start 06/14/16 at 13:30 Clonidine (Catapres) 0.2 mg Q8 PRN PO Systolic >160 Last administered on 02:29; Admin Dose 0.2 MG; Start 06/14/16 at 13:00 Promethazine HCl/ Codeine (Phenergan/ Codeine) 5 ml Q4H PRN PO COUGH Last administered on 06/21/16 18:04; Admin Dose 5 ML; Start 06/15/16 at 00:00 Pantoprazole (Protonix Tab) 40 mg DAILY@06 PO Last administered on 07/12/16 06 :31; Admin Dose 40 MG; Start 06/16/16 at 06:00 Diphenhydramine HCl (Benadryl) 25 mg HS PRN PO INSOMNIA Last administered on 00:54; Admin Dose 25 MG; Start 06/15/16 at 21:30 Hydralazine HCl (Apresoline) 100 mg Q8 PO Last administered on 07/12/16 14:35 ; Admin Dose 100 MG; Start 06/19/16 at 13:00 Bisacodyl (Dulcolax) 10 mg DAILY PRN PO CONSTIPATION Last administered on 22:38; Admin Dose 10 MG; Start 06/22/16 at 11:30 Benazepril HCl (Lotensin) 40 mg BID PO Last administered on 07/11/16 21:17; Admin Dose 40 MG; Start 06/23/16 at 21:00 Hydralazine HCl (Apresoline) 20 mg Q4H PRN IV for SBP more than 170; Start at 05:00 Ondansetron HCl (Zofran Inj) 4 mg Q6H PRN IV NAUSEA AND/OR VOMITING Last administered on 07/03/16 14:45; Admin Dose 4 MG; Start 06/28/16 at 05:00 Lorazepam (Ativan) 1 mg Q6H PRN IV ANXIETY Last administered on 07/02/16 01:46 ; Admin Dose 1 MG; Start 06/28/16 at 05:00 Clonidine (Catapres) 0.1 mg QID PO Last administered on 07/12/16 13:15; Admin Dose 0.1 MG; Start 06/28/16 at 13:00 Cyclobenzaprine HCl (Flexeril) 10 mg TID PO Last administered on 07/12/16 13: 15; Admin Dose 10 MG; Start 07/03/16 at 21:00 Hydromorphone HCl (Dilaudid) 0.5 mg Q4H PRN IV PAIN Last administered on 15:38; Admin Dose 0.5 MG; Start 07/07/16 at 22:00 Hydromorphone HCl (Dilaudid) 1 mg Q3H PRN IV PAIN Last administered on 06:16; Admin Dose 1 MG; Start 07/07/16 at 22:00 Metoprolol Tartrate (Lopressor) 75 mg BID PO Last administered on 07/11/16 21: 16; Admin Dose 75 MG; Start 07/09/16 at 21:00 Insulin Glargine (Lantus) 10 unit DAILY@20 SC Last administered on 07/11/16t 22 :18; Admin Dose 10 UNIT; Start 07/11/16 at 20:00 Isoniazid (Isoniazid) 300 mg DAILY PO ; Start 07/12/16 at 15:00 Rifampin (Rifampin) 600 mg DAILY PO ; Start 07/12/16 at 15:00 Pyrazinamide (Pyrazinamide) 2,000 mg TuThSa@18 PO ; Start 07/12/16 at 18:00 Ethambutol HCl (Myambutol) 1,600 mg TuThSa@18 PO ; Start 07/12/16 at 18:00 SHERITA SCOTT Jul 12, 2016 16:50
[2016-07-12] MEDS: RIFAMPIN 300 MG CAP PO SCH (16:54)
[2016-07-12] MEDS: ISONIAZID 300 MG TAB PO SCH (16:54)
[2016-07-12] MEDS: HYDROmorphONE 1 MG/ML SYG IV PRN (16:57)
--- NOTE | 2016-07-12 17:50 | PN ---
Date/Time of Note Date/Time of Note DATE: 07/12/16 TIME: 17:49 Assessment/Plan VTE Prophylaxis VTE Prophylaxis Intervention: other Lines/Catheters IV Catheter Type (from [facility]): PICC Line Central line still needed: Yes Urinary Cath still in place: No Assessment/Plan Assessment/Plan - Anemia, status post blood transfusion, heparin is on hold - per Dr. Borjas in gastroenterology consultation. - Recurrent pleural effusions. Biopsy revealed granulomatous inflammation with focal necrosis and extensive hyalinization. Sputum for AFB negative 3. Continued on, on airborne isolation until cleared by department of health. - per Dr. Martinez in thoracic surgery consultation. - S/p VATS 06/30. - Follow-up on intraoperative cultures- - per pulmonary - per infectious disease consultation. - Right pleural effusion, status post thoracentesis. - per Dr. Dale in pulmonology consultation. - End-stage renal disease, continue hemodialysis. - per Dr. Saunders in nephrology consultation. - Diabetes mellitus type 2, continue Lantus and NovoLog - Hypertension. - per Dr. De Santiago in cardiology consultation. - Coronary artery disease, status post coronary artery bypass graft. - Permanent pacemaker. No acute issues. - Dyslipidemia. Continue Lipitor. -Heparin for deep venous thrombosis prophylaxis -Protonix for peptic ulcer disease prophylaxis. Further recommendations based on clinical course. Plan of care discussed with Dr. Price. Subjective 24 Hr Interval Summary Constitutional: requiring IVF, requiring O2 Eyes: no complaints ENT: no complaints Respiratory: shortness of breath Cardiovascular: no complaints Gastrointestinal: no complaints Genitourinary: no complaints Musculoskeletal: no complaints Skin: no complaints Neurologic: no complaints Endocrine: no complaints Lymphatic: no complaints Psychological: no complaints Immunologic: no complaints Exam/Review of Systems Vital Signs Vitals Vital Signs Date Time Temp Pulse Resp B/P Pulse Ox O2 Delivery O2 Flow Rate FiO2 07/12/16 16:26 98.4 79 19 156/63 96 07/09/16 20:00 Nasal Cannula 2.0 Intake and Output 07/11/16 07/11/16 07/12/16 15:00 23:00 07:00 Intake Total 450 ml 400 ml Output Total 300 ml Balance 150 ml 400 ml Exam Constitutional: alert, oriented Psych: no complaints Eyes: EOMI, PERRL, nl sclera ENMT: nl external ears & nose Neck: supple Respiratory: diminished breath sounds (more on right than left. right chest dressing dry/intact) Cardiovascular: nl pulses Gastrointestinal: non-tender, soft Musculoskeletal: nl extremities to inspection Extremities: normal pulses Neurological: nl mental status, nl speech Lymph: nontender Results Result Diagram: 07/12/16 0614 07/12/16 0644 Results 24 hrs Laboratory Tests Test 07/11/16 21:14 07/12/16 06:14 07/12/16 06:44 07/12/16 07:55 Bedside Glucose 147 126 Basophils # 0.1 Basophils % 0.7 Eosinophils # 0.4 Eosinophils % 3.8 Hematocrit 29.9 L Hemoglobin 9.9 L Lymphocytes # 1.0 Lymphocytes % 8.7 L Mean Corpuscular Hemoglobin 31.4 Mean Corpuscular Hemoglobin Concent 33.1 Mean Corpuscular Volume 94.9 Mean Platelet Volume 9.1 Monocytes # 0.8 Monocytes % 6.8 Neutrophils # 9.0 H Neutrophils % 79.6 H Nucleated Red Blood Cells # 0.0 Nucleated Red Blood Cells % 0.0 Platelet Count 378 Red Blood Count 3.15 L Red Cell Distribution Width 13.0 White Blood Count 11.3 #H Anion Gap 19 H Blood Urea Nitrogen 76 H Calcium Level 10.8 H Carbon Dioxide Level 26 Chloride Level 94 L Creatinine 9.75 H Glucose Level 104 # Potassium Level 4.6 Sodium Level 134 L Test 07/12/16 12:40 Bedside Glucose 132 Medications Medications Current Medications IV Flush (NS 10 ml) 10 ml PRN PRN IV FLUSH LINE; Start 06/13/16 at 19:00 Aspirin (Halfprin) 81 mg DAILY PO Last administered on 07/12/16 12:40; Admin Dose 81 MG; Start 06/14/16 at 09:00 Atorvastatin Calcium (Lipitor) 10 mg QHS PO Last administered on 07/11/16 21: 17; Admin Dose 10 MG; Start 06/14/16 at 21:00 Cholecalciferol (Vitamin D) 400 units DAILY PO Last administered on 07/12/16 12:41; Admin Dose 400 UNITS; Start 06/14/16 at 09:00 Ferrous Sulfate (Ferrous Sulfate (Ec)) 325 mg BID PO Last administered on 12:40; Admin Dose 325 MG; Start 06/14/16 at 09:00 Acetaminophen (Tylenol Tab) 500 mg Q4H PRN PO PAIN AND OR ELEVATED TEMP Last administered on 07/05/16 05:49; Admin Dose 500 MG; Start 06/14/16 at 00:00 Miscellaneous Information 1 ea NOTE XX Last administered on 06/18/16 07:57; Admin Dose 1 EA; Start 06/14/16 at 00:30 Glucose (Glutose) 15 gm Q15M PRN PO DECREASED GLUCOSE; Start 06/14/16 at 00:30 Glucose (Glutose) 22.5 gm Q15M PRN PO DECREASED GLUCOSE; Start 06/14/16 at 00: 30 Dextrose (D50w Syringe) 25 ml Q15M PRN IV DECREASED GLUCOSE; Start 06/14/16 at 00:30 Dextrose (D50w Syringe) 50 ml Q15M PRN IV DECREASED GLUCOSE; Start 06/14/16 at 00:30 Glucagon (Glucagen) 1 mg Q15M PRN IM DECREASED GLUCOSE; Start 06/14/16 at 00:30 Glucose (Glutose) 15 gm Q15M PRN BUCCAL DECREASED GLUCOSE; Start 06/14/16 at 00 :30 Diagnostic Test (Pha) (Accucheck) 1 ea 02 XX Last administered on 07/11/16 01: 54; Admin Dose 1 EA; Start 06/14/16 at 02:00 Amlodipine Besylate (Norvasc) 5 mg BID PO Last administered on 07/11/16 21:17 ; Admin Dose 5 MG; Start 06/14/16 at 13:30 Clonidine (Catapres) 0.2 mg Q8 PRN PO Systolic >160 Last administered on 02:29; Admin Dose 0.2 MG; Start 06/14/16 at 13:00 Promethazine HCl/ Codeine (Phenergan/ Codeine) 5 ml Q4H PRN PO COUGH Last administered on 06/21/16 18:04; Admin Dose 5 ML; Start 06/15/16 at 00:00 Pantoprazole (Protonix Tab) 40 mg DAILY@06 PO Last administered on 07/12/16 06 :31; Admin Dose 40 MG; Start 06/16/16 at 06:00 Diphenhydramine HCl (Benadryl) 25 mg HS PRN PO INSOMNIA Last administered on 00:54; Admin Dose 25 MG; Start 06/15/16 at 21:30 Hydralazine HCl (Apresoline) 100 mg Q8 PO Last administered on 07/12/16 14:35 ; Admin Dose 100 MG; Start 06/19/16 at 13:00 Bisacodyl (Dulcolax) 10 mg DAILY PRN PO CONSTIPATION Last administered on 22:38; Admin Dose 10 MG; Start 06/22/16 at 11:30 Benazepril HCl (Lotensin) 40 mg BID PO Last administered on 07/11/16 21:17; Admin Dose 40 MG; Start 06/23/16 at 21:00 Hydralazine HCl (Apresoline) 20 mg Q4H PRN IV for SBP more than 170; Start at 05:00 Ondansetron HCl (Zofran Inj) 4 mg Q6H PRN IV NAUSEA AND/OR VOMITING Last administered on 07/03/16 14:45; Admin Dose 4 MG; Start 06/28/16 at 05:00 Lorazepam (Ativan) 1 mg Q6H PRN IV ANXIETY Last administered on 07/02/16 01:46 ; Admin Dose 1 MG; Start 06/28/16 at 05:00 Clonidine (Catapres) 0.1 mg QID PO Last administered on 07/12/16 16:55; Admin Dose 0.1 MG; Start 06/28/16 at 13:00 Cyclobenzaprine HCl (Flexeril) 10 mg TID PO Last administered on 07/12/16 13: 15; Admin Dose 10 MG; Start 07/03/16 at 21:00 Hydromorphone HCl (Dilaudid) 0.5 mg Q4H PRN IV PAIN Last administered on 15:38; Admin Dose 0.5 MG; Start 07/07/16 at 22:00 Hydromorphone HCl (Dilaudid) 1 mg Q3H PRN IV PAIN Last administered on 16:57; Admin Dose 1 MG; Start 07/07/16 at 22:00 Metoprolol Tartrate (Lopressor) 75 mg BID PO Last administered on 07/11/16 21: 16; Admin Dose 75 MG; Start 07/09/16 at 21:00 Insulin Glargine (Lantus) 10 unit DAILY@20 SC Last administered on 07/11/16 22 :18; Admin Dose 10 UNIT; Start 07/11/16 at 20:00 Isoniazid (Isoniazid) 300 mg DAILY PO Last administered on 07/12/16 16:54; Admin Dose 300 MG; Start 07/12/16 at 15:00 Rifampin (Rifampin) 600 mg DAILY PO Last administered on 07/12/16 16:54; Admin Dose 600 MG; Start 07/12/16 at 15:00 Pyrazinamide (Pyrazinamide) 2,000 mg TuThSa@18 PO ; Start 07/12/16 at 18:00 Ethambutol HCl (Myambutol) 1,600 mg TuThSa@18 PO ; Start 07/12/16 at 18:00 Doxazosin Mesylate (Cardura) 1 mg BID PO ; Start 07/12/16 at 21:00 PATRICIA RUEDA Jul 12, 2016 17:50
[2016-07-12] MEDS ORDERED: ETHAMBUTOL 400 MG TAB PO SCH (18:00)
[2016-07-12] MEDS ORDERED: PYRAZINAMIDE 500 MG TAB PO SCH (18:00)
--- NOTE | 2016-07-12 19:22 | CONS ---
Date/Time of Note Date/Time of Note DATE: 07/12/16 TIME: 19:21 Assessment/Plan Assessment/Plan Chief Complaint/Hosp Course ESRD HTN PNEUMONIA better PLEURAL EFFUSION s/p vats ctube out hyperkalemia HX TB GOLD TEST +r/o ptb ANEMIA PLAN PER CARDIO NON COMPLIANCE W HD hd refused hd 3 x wk HD T/THURSDAY PT REFUSED HD ON THURSDAY per pcp fluid res PER SURGERY per id on anti tb drugs Problems: Consultation Date/Type/Reason Admit Date/Time Jun 13, 2016 at 14:48 Type of Consultation: renal Referring Provider: EVA COX MD 24 HR Interval Summary Constitutional: no complaints Exam/Review of Systems Vital Signs Vitals Vital Signs Date Time Temp Pulse Resp B/P Pulse Ox O2 Delivery O2 Flow Rate FiO2 07/12/16 16:26 98.4 79 19 156/63 96 07/09/16 20:00 Nasal Cannula 2.0 Intake and Output 07/11/16 07/11/16 07/12/16 15:00 23:00 07:00 Intake Total 450 ml 400 ml Output Total 300 ml Balance 150 ml 400 ml Exam Respiratory: clear to auscultation Cardiovascular: regular rate and rhythm Gastrointestinal: soft Extremities: normal pulses Neurological: INFORMATICA II-XII intact Results Result Diagram: 07/12/16 0614 07/12/16 0644 Results 24 hrs Laboratory Tests Test 07/11/16 21:14 07/12/16 06:14 07/12/16 06:44 07/12/16 07:55 Bedside Glucose 147 126 Basophils # 0.1 Basophils % 0.7 Eosinophils # 0.4 Eosinophils % 3.8 Hematocrit 29.9 L Hemoglobin 9.9 L Lymphocytes # 1.0 Lymphocytes % 8.7 L Mean Corpuscular Hemoglobin 31.4 Mean Corpuscular Hemoglobin Concent 33.1 Mean Corpuscular Volume 94.9 Mean Platelet Volume 9.1 Monocytes # 0.8 Monocytes % 6.8 Neutrophils # 9.0 H Neutrophils % 79.6 H Nucleated Red Blood Cells # 0.0 Nucleated Red Blood Cells % 0.0 Platelet Count 378 Red Blood Count 3.15 L Red Cell Distribution Width 13.0 White Blood Count 11.3 #H Anion Gap 19 H Blood Urea Nitrogen 76 H Calcium Level 10.8 H Carbon Dioxide Level 26 Chloride Level 94 L Creatinine 9.75 H Glucose Level 104 # Potassium Level 4.6 Sodium Level 134 L Test 07/12/16 12:40 07/12/16 18:28 Bedside Glucose 132 170 Medications Medications Current Medications IV Flush (NS 10 ml) 10 ml PRN PRN IV FLUSH LINE; Start 06/13/16 at 19:00 Aspirin (Halfprin) 81 mg DAILY PO Last administered on 07/12/16 12:40; Admin Dose 81 MG; Start 06/14/16 at 09:00 Atorvastatin Calcium (Lipitor) 10 mg QHS PO Last administered on 07/11/16 21: 17; Admin Dose 10 MG; Start 06/14/16 at 21:00 Cholecalciferol (Vitamin D) 400 units DAILY PO Last administered on 07/12/16 12:41; Admin Dose 400 UNITS; Start 06/14/16 at 09:00 Ferrous Sulfate (Ferrous Sulfate (Ec)) 325 mg BID PO Last administered on 12:40; Admin Dose 325 MG; Start 06/14/16 at 09:00 Acetaminophen (Tylenol Tab) 500 mg Q4H PRN PO PAIN AND OR ELEVATED TEMP Last administered on 07/05/16 05:49; Admin Dose 500 MG; Start 06/14/16 at 00:00 Miscellaneous Information 1 ea NOTE XX Last administered on 06/18/16 07:57; Admin Dose 1 EA; Start 06/14/16 at 00:30 Glucose (Glutose) 15 gm Q15M PRN PO DECREASED GLUCOSE; Start 06/14/16 at 00:30 Glucose (Glutose) 22.5 gm Q15M PRN PO DECREASED GLUCOSE; Start 06/14/16 at 00: 30 Dextrose (D50w Syringe) 25 ml Q15M PRN IV DECREASED GLUCOSE; Start 06/14/16 at 00:30 Dextrose (D50w Syringe) 50 ml Q15M PRN IV DECREASED GLUCOSE; Start 06/14/16 at 00:30 Glucagon (Glucagen) 1 mg Q15M PRN IM DECREASED GLUCOSE; Start 06/14/16 at 00:30 Glucose (Glutose) 15 gm Q15M PRN BUCCAL DECREASED GLUCOSE; Start 06/14/16 at 00 :30 Diagnostic Test (Pha) (Accucheck) 1 ea 02 XX Last administered on 07/11/16 01: 54; Admin Dose 1 EA; Start 06/14/16 at 02:00 Amlodipine Besylate (Norvasc) 5 mg BID PO Last administered on 07/11/16 21:17 ; Admin Dose 5 MG; Start 06/14/16 at 13:30 Clonidine (Catapres) 0.2 mg Q8 PRN PO Systolic >160 Last administered on 02:29; Admin Dose 0.2 MG; Start 06/14/16 at 13:00 Promethazine HCl/ Codeine (Phenergan/ Codeine) 5 ml Q4H PRN PO COUGH Last administered on 06/21/16 18:04; Admin Dose 5 ML; Start 06/15/16 at 00:00 Pantoprazole (Protonix Tab) 40 mg DAILY@06 PO Last administered on 07/12/16 06 :31; Admin Dose 40 MG; Start 06/16/16 at 06:00 Diphenhydramine HCl (Benadryl) 25 mg HS PRN PO INSOMNIA Last administered on 00:54; Admin Dose 25 MG; Start 06/15/16 at 21:30 Hydralazine HCl (Apresoline) 100 mg Q8 PO Last administered on 07/12/16 14:35 ; Admin Dose 100 MG; Start 06/19/16 at 13:00 Bisacodyl (Dulcolax) 10 mg DAILY PRN PO CONSTIPATION Last administered on 22:38; Admin Dose 10 MG; Start 06/22/16 at 11:30 Benazepril HCl (Lotensin) 40 mg BID PO Last administered on 07/11/16 21:17; Admin Dose 40 MG; Start 06/23/16 at 21:00 Hydralazine HCl (Apresoline) 20 mg Q4H PRN IV for SBP more than 170; Start at 05:00 Ondansetron HCl (Zofran Inj) 4 mg Q6H PRN IV NAUSEA AND/OR VOMITING Last administered on 07/03/16 14:45; Admin Dose 4 MG; Start 06/28/16 at 05:00 Lorazepam (Ativan) 1 mg Q6H PRN IV ANXIETY Last administered on 07/02/16 01:46 ; Admin Dose 1 MG; Start 06/28/16 at 05:00 Clonidine (Catapres) 0.1 mg QID PO Last administered on 07/12/16 16:55; Admin Dose 0.1 MG; Start 06/28/16 at 13:00 Cyclobenzaprine HCl (Flexeril) 10 mg TID PO Last administered on 07/12/16 13: 15; Admin Dose 10 MG; Start 07/03/16 at 21:00 Hydromorphone HCl (Dilaudid) 0.5 mg Q4H PRN IV PAIN Last administered on 15:38; Admin Dose 0.5 MG; Start 07/07/16 at 22:00 Hydromorphone HCl (Dilaudid) 1 mg Q3H PRN IV PAIN Last administered on 16:57; Admin Dose 1 MG; Start 07/07/16 at 22:00 Metoprolol Tartrate (Lopressor) 75 mg BID PO Last administered on 07/11/16 21: 16; Admin Dose 75 MG; Start 07/09/16 at 21:00 Insulin Glargine (Lantus) 10 unit DAILY@20 SC Last administered on 07/11/16 22 :18; Admin Dose 10 UNIT; Start 07/11/16 at 20:00 Isoniazid (Isoniazid) 300 mg DAILY PO Last administered on 07/12/16 16:54; Admin Dose 300 MG; Start 07/12/16 at 15:00 Rifampin (Rifampin) 600 mg DAILY PO Last administered on 07/12/16 16:54; Admin Dose 600 MG; Start 07/12/16 at 15:00 Pyrazinamide (Pyrazinamide) 2,000 mg TuThSa@18 PO Last administered on 18:24; Admin Dose 2,000 MG; Start 07/12/16 at 18:00 Ethambutol HCl (Myambutol) 1,600 mg TuThSa@18 PO Last administered on 18:23; Admin Dose 1,600 MG; Start 07/12/16 at 18:00 Doxazosin Mesylate (Cardura) 1 mg BID PO ; Start 07/12/16 at 21:00 PAOLA MOODY MD Jul 12, 2016 19:22
[2016-07-12] MEDS: ATORVASTATIN 10 MG TAB PO SCH (21:30)
[2016-07-12] MEDS: DOXAZOSIN 1 MG TAB PO SCH (21:32)
[2016-07-12] MEDS: INSULIN GLARGINE [LANtus] 3 ML PEN SC SCH (21:42)
[2016-07-13] VITALS (12 sets, daily range): BP systolic 120–151; BP diastolic 50–65; PULSE 64–72; RESP 18–19
[2016-07-13] MEDS: ACCU-CHEK XX SCH ×5 (02:00→21:00)
[2016-07-13] MEDS: PANTOPRAZOLE (EC) 40 MG TAB PO SCH (05:42)
[2016-07-13 06:23] LABS: ADD SCAN DIFF NO
[2016-07-13 06:29] LABS: BASOPHIL # 0.1 10^3/ul (0.0-0.1); BASOPHILS % 0.7 % (0.0-2.0); EOSINOPHILS # 0.4 10^3/ul (0.0-0.5); HEMOGLOBIN 9.5 g/dl (14.0-18.0); LYMPHOCYTES # 0.6 10^3/ul (0.8-2.9); LYMPHOCYTES % 5.9 % (15.0-51.0); MEAN CORPUSCULAR HEMOGLOBIN 31.5 pg (29.0-33.0); MEAN CORPUSCULAR HGB CONC 32.8 g/dl (32.0-37.0); MEAN PLATELET VOLUME 9.1 fl (7.4-10.4); MONOCYTE # 0.9 10^3/ul (0.3-0.9); MONOCYTES % 7.9 % (0.0-11.0); NEUTROPHIL # 8.9 10^3/ul (1.6-7.5); PLATELET COUNT 316 10^3/UL (140-415); RED BLOOD COUNT 3.02 10^6/ul (4.70-6.10); WHITE BLOOD COUNT 10.9 10^3/ul (4.8-10.8)
[2016-07-13 06:42] LABS: POTASSIUM 4.5 mmol/L (3.5-5.1)
[2016-07-13 06:44] LABS: CREATININE 6.39 mg/dl (0.61-1.24)
[2016-07-13 06:45] LABS: CALCIUM 10.3 mg/dl (8.4-10.2)
[2016-07-13] MEDS: CALCIUM ACETATE 667 MG CAP PO SCH ×3 (08:16→18:17)
[2016-07-13] MEDS: SEVELAMER CARBONATE 0.8 GM PKT PO SCH ×3 (08:16→18:17)
[2016-07-13] MEDS: LEVALBUTEROL (HFA) 15 GM INHALER INH SCH ×3 (08:17→16:51)
[2016-07-13] MEDS: DOXAZOSIN 1 MG TAB PO SCH ×2 (08:17→21:52)
[2016-07-13] MEDS: ISONIAZID 300 MG TAB PO SCH (08:19)
[2016-07-13] MEDS: FERROUS SULFATE (EC) 325 MG TAB PO SCH ×2 (08:19→21:00)
[2016-07-13] MEDS: CYCLOBENZAPRINE 10 MG TAB PO SCH ×3 (08:19→21:51)
[2016-07-13] MEDS: ASPIRIN (EC) 81 MG TAB PO SCH (08:19)
[2016-07-13] MEDS: BENAZEPRIL 40 MG TAB PO SCH ×2 (08:20→21:52)
[2016-07-13] MEDS: RIFAMPIN 300 MG CAP PO SCH (08:20)
[2016-07-13] MEDS: CHOLECALCIFEROL 400 UNITS TAB PO SCH (08:20)
[2016-07-13] MEDS: AMLODIPINE 5 MG TAB PO SCH ×2 (08:21→21:51)
[2016-07-13] MEDS: METOPROLOL 25 MG TAB PO SCH ×2 (08:21→21:53)
[2016-07-13] MEDS: INSULIN ASPART [NOVOLOG] 3 ML PEN SC SCH ×7 (09:01→21:00)
[2016-07-13] MEDS: HYDROmorphONE 1 MG/ML SYG IV PRN (12:59)
--- NOTE | 2016-07-13 15:49 | CONS ---
Date/Time of Note Date/Time of Note DATE: 07/13/16 TIME: 15:46 Assessment/Plan Assessment/Plan Chief Complaint/Hosp Course IMPRESSION: 1. Abnormal electrocardiogram, assess for acute coronary syndrome.-negative troponin x 3 2. History of recent negative stress, May 2015. 3. History of percutaneous transluminal coronary angioplasty and stent placement in 2014 to the left main left anterior descending. No current chest pain. 4. Hypertension, mildly elevated. 5. History of dyslipidemia. 6. Pleural effusion, status post thoracentesis. 7. Possible pneumonia/cough-improved 8. Diabetes mellitus. 9. End-stage renal disease, on hemodialysis. 10. Had WCT-06/27 which was paced beats at approx 100. NO recurrence since .MAC infection/colonization? RECOMMENDATIONS: -Tele -Continue metoprolol -Continue Benazepril -Continue norvasc/hydralazine and now cardura and will attempt to slowly decrease dose of clonidine as BP allows -consider intiation of cardura to improve overalll BP control -Continue asa/statin/plavix -Consider abx's and f/u cx data -Follow volume status with HD for volume removal -Now on treatment for TB Problems: Consultation Date/Type/Reason Admit Date/Time Jun 13, 2016 at 14:48 Initial Consult Date 06/14/2016 Type of Consultation: Cardiology Reason for Consultation Abnl ecg Referring Provider: EVA COX MD Exam/Review of Systems Vital Signs Vitals Vital Signs Date Time Temp Pulse Resp B/P Pulse Ox O2 Delivery O2 Flow Rate FiO2 07/13/16 12:16 69 07/13/16 11:53 98.5 19 136/60 96 07/13/16 04:00 Nasal Cannula 2.0 Intake and Output 07/12/16 07/12/16 07/13/16 15:00 23:00 07:00 Intake Total 500 ml 600 ml 1020 ml Output Total 2000 ml Balance -1500 ml 600 ml 1020 ml Exam Review of Systems: CONSTITUTIONAL: No fevers, chills. PULMONARY: No sob CARDIOVASCULAR: No chest pain/palpitations GASTROINTESTINAL: No nausea/vomiting. GENITOURINARY: No hematuria/dysuria. MUSCULOSKELETAL: No myagias/arthalgias. PSYCHIATRIC: The patient denies depression. NEUROLOGIC: No weakness Constitutional: alert, oriented Psych: no complaints Head: normocephalic ENMT: mucosa pink and moist Neck: jvd, supple Respiratory: diminished breath sounds (at bases/B) Cardiovascular: regular rate and rhythm Gastrointestinal: non-tender, soft Musculoskeletal: muscle tone Extremities: edema (none) Neurological: other (No focal deficits) Results Result Diagram: 07/13/16 0545 07/13/16 0545 Results 24 hrs Laboratory Tests Test 07/12/16 18:28 07/12/16 21:29 07/13/16 01:52 07/13/16 03:37 Bedside Glucose 170 197 51 L 120 Test 07/13/16 05:45 07/13/16 08:14 07/13/16 08:54 Anion Gap 15 Basophils # 0.1 Basophils % 0.7 Blood Urea Nitrogen 40 #H Calcium Level 10.3 H Carbon Dioxide Level 29 Chloride Level 96 L Creatinine 6.39 #H Eosinophils # 0.4 Eosinophils % 4.0 Glucose Level 80 Hematocrit 29.0 L Hemoglobin 9.5 L Lymphocytes # 0.6 L Lymphocytes % 5.9 L Mean Corpuscular Hemoglobin 31.5 Mean Corpuscular Hemoglobin Concent 32.8 Mean Corpuscular Volume 96.0 Mean Platelet Volume 9.1 Monocytes # 0.9 Monocytes % 7.9 Neutrophils # 8.9 H Neutrophils % 81.0 H Nucleated Red Blood Cells # 0.0 Nucleated Red Blood Cells % 0.0 Platelet Count 316 Potassium Level 4.5 Red Blood Count 3.02 L Red Cell Distribution Width 13.0 Sodium Level 135 White Blood Count 10.9 H Bedside Glucose 64 L 146 Medications Medications Current Medications IV Flush (NS 10 ml) 10 ml PRN PRN IV FLUSH LINE; Start 06/13/16 at 19:00 Aspirin (Halfprin) 81 mg DAILY PO Last administered on 07/13/16 08:19; Admin Dose 81 MG; Start 06/14/16 at 09:00 Atorvastatin Calcium (Lipitor) 10 mg QHS PO Last administered on 07/12/16 21: 30; Admin Dose 10 MG; Start 06/14/16 at 21:00 Cholecalciferol (Vitamin D) 400 units DAILY PO Last administered on 07/13/16 08:20; Admin Dose 400 UNITS; Start 06/14/16 at 09:00 Ferrous Sulfate (Ferrous Sulfate (Ec)) 325 mg BID PO Last administered on 08:19; Admin Dose 325 MG; Start 06/14/16 at 09:00 Acetaminophen (Tylenol Tab) 500 mg Q4H PRN PO PAIN AND OR ELEVATED TEMP Last administered on 07/05/16 05:49; Admin Dose 500 MG; Start 06/14/16 at 00:00 Miscellaneous Information 1 ea NOTE XX Last administered on 06/18/16 07:57; Admin Dose 1 EA; Start 06/14/16 at 00:30 Glucose (Glutose) 15 gm Q15M PRN PO DECREASED GLUCOSE; Start 06/14/16 at 00:30 Glucose (Glutose) 22.5 gm Q15M PRN PO DECREASED GLUCOSE; Start 06/14/16 at 00: 30 Dextrose (D50w Syringe) 25 ml Q15M PRN IV DECREASED GLUCOSE; Start 06/14/16 at 00:30 Dextrose (D50w Syringe) 50 ml Q15M PRN IV DECREASED GLUCOSE; Start 06/14/16 at 00:30 Glucagon (Glucagen) 1 mg Q15M PRN IM DECREASED GLUCOSE; Start 06/14/16 at 00:30 Glucose (Glutose) 15 gm Q15M PRN BUCCAL DECREASED GLUCOSE; Start 06/14/16 at 00 :30 Diagnostic Test (Pha) (Accucheck) 1 ea 02 XX Last administered on 07/11/16 01: 54; Admin Dose 1 EA; Start 06/14/16 at 02:00 Amlodipine Besylate (Norvasc) 5 mg BID PO Last administered on 07/13/16 08:21 ; Admin Dose 5 MG; Start 06/14/16 at 13:30 Clonidine (Catapres) 0.2 mg Q8 PRN PO Systolic >160 Last administered on 02:29; Admin Dose 0.2 MG; Start 06/14/16 at 13:00 Promethazine HCl/ Codeine (Phenergan/ Codeine) 5 ml Q4H PRN PO COUGH Last administered on 06/21/16 18:04; Admin Dose 5 ML; Start 06/15/16 at 00:00 Pantoprazole (Protonix Tab) 40 mg DAILY@06 PO Last administered on 07/13/16 05 :42; Admin Dose 40 MG; Start 06/16/16 at 06:00 Diphenhydramine HCl (Benadryl) 25 mg HS PRN PO INSOMNIA Last administered on 00:54; Admin Dose 25 MG; Start 06/15/16 at 21:30 Hydralazine HCl (Apresoline) 100 mg Q8 PO Last administered on 07/13/16 15:37 ; Admin Dose 100 MG; Start 06/19/16 at 13:00 Bisacodyl (Dulcolax) 10 mg DAILY PRN PO CONSTIPATION Last administered on 22:38; Admin Dose 10 MG; Start 06/22/16 at 11:30 Benazepril HCl (Lotensin) 40 mg BID PO Last administered on 07/13/16 08:20; Admin Dose 40 MG; Start 06/23/16 at 21:00 Hydralazine HCl (Apresoline) 20 mg Q4H PRN IV for SBP more than 170; Start at 05:00 Ondansetron HCl (Zofran Inj) 4 mg Q6H PRN IV NAUSEA AND/OR VOMITING Last administered on 07/03/16 14:45; Admin Dose 4 MG; Start 06/28/16 at 05:00 Lorazepam (Ativan) 1 mg Q6H PRN IV ANXIETY Last administered on 07/02/16 01:46 ; Admin Dose 1 MG; Start 06/28/16 at 05:00 Clonidine (Catapres) 0.1 mg QID PO Last administered on 07/13/16 12:46; Admin Dose 0.1 MG; Start 06/28/16 at 13:00 Cyclobenzaprine HCl (Flexeril) 10 mg TID PO Last administered on 07/13/16 12: 47; Admin Dose 10 MG; Start 07/03/16 at 21:00 Hydromorphone HCl (Dilaudid) 0.5 mg Q4H PRN IV PAIN Last administered on 15:38; Admin Dose 0.5 MG; Start 07/07/16 at 22:00 Hydromorphone HCl (Dilaudid) 1 mg Q3H PRN IV PAIN Last administered on 12:59; Admin Dose 1 MG; Start 07/07/16 at 22:00 Metoprolol Tartrate (Lopressor) 75 mg BID PO Last administered on 07/13/16 08: 21; Admin Dose 75 MG; Start 07/09/16 at 21:00 Insulin Glargine (Lantus) 10 unit DAILY@20 SC Last administered on 07/12/16 21 :42; Admin Dose 10 UNIT; Start 07/11/16 at 20:00 Isoniazid (Isoniazid) 300 mg DAILY PO Last administered on 07/13/16 08:19; Admin Dose 300 MG; Start 07/12/16 at 15:00 Rifampin (Rifampin) 600 mg DAILY PO Last administered on 07/13/16 08:20; Admin Dose 600 MG; Start 07/12/16 at 15:00 Pyrazinamide (Pyrazinamide) 2,000 mg TuThSa@18 PO Last administered on 18:24; Admin Dose 2,000 MG; Start 07/12/16 at 18:00 Ethambutol HCl (Myambutol) 1,600 mg TuThSa@18 PO Last administered on 18:23; Admin Dose 1,600 MG; Start 07/12/16 at 18:00 Doxazosin Mesylate (Cardura) 1 mg BID PO Last administered on 07/13/16 08:17; Admin Dose 1 MG; Start 07/12/16 at 21:00 SHERITA SCOTT Jul 13, 2016 15:48
--- NOTE | 2016-07-13 17:13 | CONS ---
Date/Time of Note Date/Time of Note DATE: 07/13/16 TIME: 17:12 Assessment/Plan Assessment/Plan Chief Complaint/Hosp Course ESRD HTN PNEUMONIA better PLEURAL EFFUSION s/p vats ctube out hyperkalemia HX TB GOLD TEST +r/o ptb ANEMIA PLAN PER CARDIO NON COMPLIANCE W HD hd refused hd 3 x wk HD T/THURSDAY PT REFUSED HD ON THURSDAY per pcp fluid res PER SURGERY per id on anti tb drugs Problems: Consultation Date/Type/Reason Admit Date/Time Jun 13, 2016 at 14:48 Type of Consultation: RENAL Referring Provider: EVA COX MD 24 HR Interval Summary Constitutional: no complaints Exam/Review of Systems Vital Signs Vitals Vital Signs Date Time Temp Pulse Resp B/P Pulse Ox O2 Delivery O2 Flow Rate FiO2 07/13/16 17:02 98.0 70 19 120/50 99 07/13/16 04:00 Nasal Cannula 2.0 Intake and Output 07/12/16 07/12/16 07/13/16 15:00 23:00 07:00 Intake Total 500 ml 600 ml 1020 ml Output Total 2000 ml Balance -1500 ml 600 ml 1020 ml Exam Neck: supple Respiratory: clear to auscultation Cardiovascular: regular rate and rhythm Gastrointestinal: soft Musculoskeletal: nl extremities to inspection Results Result Diagram: 07/13/16 0545 07/13/16 0545 Results 24 hrs Laboratory Tests Test 07/12/16 18:28 07/12/16 21:29 07/13/16 01:52 07/13/16 03:37 Bedside Glucose 170 197 51 L 120 Test 07/13/16 05:45 07/13/16 08:14 07/13/16 08:54 Anion Gap 15 Basophils # 0.1 Basophils % 0.7 Blood Urea Nitrogen 40 #H Calcium Level 10.3 H Carbon Dioxide Level 29 Chloride Level 96 L Creatinine 6.39 #H Eosinophils # 0.4 Eosinophils % 4.0 Glucose Level 80 Hematocrit 29.0 L Hemoglobin 9.5 L Lymphocytes # 0.6 L Lymphocytes % 5.9 L Mean Corpuscular Hemoglobin 31.5 Mean Corpuscular Hemoglobin Concent 32.8 Mean Corpuscular Volume 96.0 Mean Platelet Volume 9.1 Monocytes # 0.9 Monocytes % 7.9 Neutrophils # 8.9 H Neutrophils % 81.0 H Nucleated Red Blood Cells # 0.0 Nucleated Red Blood Cells % 0.0 Platelet Count 316 Potassium Level 4.5 Red Blood Count 3.02 L Red Cell Distribution Width 13.0 Sodium Level 135 White Blood Count 10.9 H Bedside Glucose 64 L 146 Medications Medications Current Medications IV Flush (NS 10 ml) 10 ml PRN PRN IV FLUSH LINE; Start 06/13/16 at 19:00 Aspirin (Halfprin) 81 mg DAILY PO Last administered on 07/13/16 08:19; Admin Dose 81 MG; Start 06/14/16 at 09:00 Atorvastatin Calcium (Lipitor) 10 mg QHS PO Last administered on 07/12/16 21: 30; Admin Dose 10 MG; Start 06/14/16 at 21:00 Cholecalciferol (Vitamin D) 400 units DAILY PO Last administered on 07/13/16 08:20; Admin Dose 400 UNITS; Start 06/14/16 at 09:00 Ferrous Sulfate (Ferrous Sulfate (Ec)) 325 mg BID PO Last administered on 08:19; Admin Dose 325 MG; Start 06/14/16 at 09:00 Acetaminophen (Tylenol Tab) 500 mg Q4H PRN PO PAIN AND OR ELEVATED TEMP Last administered on 07/05/16 05:49; Admin Dose 500 MG; Start 06/14/16 at 00:00 Miscellaneous Information 1 ea NOTE XX Last administered on 06/18/16 07:57; Admin Dose 1 EA; Start 06/14/16 at 00:30 Glucose (Glutose) 15 gm Q15M PRN PO DECREASED GLUCOSE; Start 06/14/16 at 00:30 Glucose (Glutose) 22.5 gm Q15M PRN PO DECREASED GLUCOSE; Start 06/14/16 at 00: 30 Dextrose (D50w Syringe) 25 ml Q15M PRN IV DECREASED GLUCOSE; Start 06/14/16 at 00:30 Dextrose (D50w Syringe) 50 ml Q15M PRN IV DECREASED GLUCOSE; Start 06/14/16 at 00:30 Glucagon (Glucagen) 1 mg Q15M PRN IM DECREASED GLUCOSE; Start 06/14/16 at 00:30 Glucose (Glutose) 15 gm Q15M PRN BUCCAL DECREASED GLUCOSE; Start 06/14/16 at 00 :30 Diagnostic Test (Pha) (Accucheck) 1 ea 02 XX Last administered on 07/11/16 01: 54; Admin Dose 1 EA; Start 06/14/16 at 02:00 Amlodipine Besylate (Norvasc) 5 mg BID PO Last administered on 07/13/16 08:21 ; Admin Dose 5 MG; Start 06/14/16 at 13:30 Clonidine (Catapres) 0.2 mg Q8 PRN PO Systolic >160 Last administered on 02:29; Admin Dose 0.2 MG; Start 06/14/16 at 13:00 Promethazine HCl/ Codeine (Phenergan/ Codeine) 5 ml Q4H PRN PO COUGH Last administered on 06/21/16 18:04; Admin Dose 5 ML; Start 06/15/16 at 00:00 Pantoprazole (Protonix Tab) 40 mg DAILY@06 PO Last administered on 07/13/16 05 :42; Admin Dose 40 MG; Start 06/16/16 at 06:00 Diphenhydramine HCl (Benadryl) 25 mg HS PRN PO INSOMNIA Last administered on 00:54; Admin Dose 25 MG; Start 06/15/16 at 21:30 Hydralazine HCl (Apresoline) 100 mg Q8 PO Last administered on 07/13/16 15:37 ; Admin Dose 100 MG; Start 06/19/16 at 13:00 Bisacodyl (Dulcolax) 10 mg DAILY PRN PO CONSTIPATION Last administered on 22:38; Admin Dose 10 MG; Start 06/22/16 at 11:30 Benazepril HCl (Lotensin) 40 mg BID PO Last administered on 07/13/16 08:20; Admin Dose 40 MG; Start 06/23/16 at 21:00 Hydralazine HCl (Apresoline) 20 mg Q4H PRN IV for SBP more than 170; Start at 05:00 Ondansetron HCl (Zofran Inj) 4 mg Q6H PRN IV NAUSEA AND/OR VOMITING Last administered on 07/03/16 14:45; Admin Dose 4 MG; Start 06/28/16 at 05:00 Lorazepam (Ativan) 1 mg Q6H PRN IV ANXIETY Last administered on 07/02/16 01:46 ; Admin Dose 1 MG; Start 06/28/16 at 05:00 Cyclobenzaprine HCl (Flexeril) 10 mg TID PO Last administered on 07/13/16 12: 47; Admin Dose 10 MG; Start 07/03/16 at 21:00 Hydromorphone HCl (Dilaudid) 0.5 mg Q4H PRN IV PAIN Last administered on 15:38; Admin Dose 0.5 MG; Start 07/07/16 at 22:00 Hydromorphone HCl (Dilaudid) 1 mg Q3H PRN IV PAIN Last administered on 12:59; Admin Dose 1 MG; Start 07/07/16 at 22:00 Metoprolol Tartrate (Lopressor) 75 mg BID PO Last administered on 07/13/16 08: 21; Admin Dose 75 MG; Start 07/09/16 at 21:00 Insulin Glargine (Lantus) 10 unit DAILY@20 SC Last administered on 07/12/16 21 :42; Admin Dose 10 UNIT; Start 07/11/16 at 20:00 Isoniazid (Isoniazid) 300 mg DAILY PO Last administered on 07/13/16 08:19; Admin Dose 300 MG; Start 07/12/16 at 15:00 Rifampin (Rifampin) 600 mg DAILY PO Last administered on 07/13/16 08:20; Admin Dose 600 MG; Start 07/12/16 at 15:00 Pyrazinamide (Pyrazinamide) 2,000 mg TuThSa@18 PO Last administered on 18:24; Admin Dose 2,000 MG; Start 07/12/16 at 18:00 Ethambutol HCl (Myambutol) 1,600 mg TuThSa@18 PO Last administered on 18:23; Admin Dose 1,600 MG; Start 07/12/16 at 18:00 Doxazosin Mesylate (Cardura) 1 mg BID PO Last administered on 07/13/16 08:17; Admin Dose 1 MG; Start 07/12/16 at 21:00 Clonidine (Catapres) 0.1 mg TID PO ; Start 07/13/16 at 21:00 PAOLA MOODY MD Jul 13, 2016 17:13
--- NOTE | 2016-07-13 19:00 | PN ---
Date/Time of Note Date/Time of Note DATE: 07/13/16 TIME: 18:59 Assessment/Plan VTE Prophylaxis VTE Prophylaxis Intervention: other Lines/Catheters IV Catheter Type (from [facility]): PICC Line Central line still needed: Yes Urinary Cath still in place: No Assessment/Plan Assessment/Plan - Anemia, status post blood transfusion, heparin is on hold - per Dr. Borjas in gastroenterology consultation. - Recurrent pleural effusions. Biopsy revealed granulomatous inflammation with focal necrosis and extensive hyalinization. Sputum for AFB negative 3. Continued on, on airborne isolation until cleared by department of health. - per Dr. Martinez in thoracic surgery consultation. - S/p VATS 06/30. - Follow-up on intraoperative cultures- - per pulmonary - per infectious disease consultation. - Right pleural effusion, status post thoracentesis. - per Dr. Dale in pulmonology consultation. - End-stage renal disease, continue hemodialysis. - per Dr. Saunders in nephrology consultation. - Diabetes mellitus type 2, continue Lantus and NovoLog - Hypertension. - per Dr. De Santiago in cardiology consultation. - Coronary artery disease, status post coronary artery bypass graft. - Permanent pacemaker. No acute issues. - Dyslipidemia. Continue Lipitor. -Heparin for deep venous thrombosis prophylaxis -Protonix for peptic ulcer disease prophylaxis. Further recommendations based on clinical course. Plan of care discussed with Dr. Price. Subjective 24 Hr Interval Summary Constitutional: requiring IVF, requiring O2 Eyes: no complaints ENT: no complaints Respiratory: shortness of breath Cardiovascular: no complaints Gastrointestinal: no complaints Genitourinary: no complaints Musculoskeletal: no complaints Skin: no complaints Neurologic: no complaints Endocrine: no complaints Lymphatic: no complaints Psychological: no complaints Immunologic: no complaints Exam/Review of Systems Vital Signs Vitals Vital Signs Date Time Temp Pulse Resp B/P Pulse Ox O2 Delivery O2 Flow Rate FiO2 07/13/16 17:02 98.0 70 19 120/50 99 07/13/16 04:00 Nasal Cannula 2.0 Intake and Output 07/12/16 07/12/16 07/13/16 15:00 23:00 07:00 Intake Total 500 ml 600 ml 1020 ml Output Total 2000 ml Balance -1500 ml 600 ml 1020 ml Exam Constitutional: alert, oriented, well developed Psych: nl mood/affect Head: atraumatic ENMT: nl external ears & nose Neck: non-tender Respiratory: diminished breath sounds (more on right than left. right chest dressing dry/intact) Cardiovascular: nl pulses Gastrointestinal: non-tender, soft Musculoskeletal: nl extremities to inspection Extremities: normal pulses Neurological: nl mental status, nl speech Skin: nl turgor Lymph: nontender Results Result Diagram: 07/13/16 0545 07/13/16 0545 Results 24 hrs Laboratory Tests Test 07/12/16 21:29 07/13/16 01:52 07/13/16 03:37 07/13/16 05:45 Bedside Glucose 197 51 L 120 Anion Gap 15 Basophils # 0.1 Basophils % 0.7 Blood Urea Nitrogen 40 #H Calcium Level 10.3 H Carbon Dioxide Level 29 Chloride Level 96 L Creatinine 6.39 #H Eosinophils # 0.4 Eosinophils % 4.0 Glucose Level 80 Hematocrit 29.0 L Hemoglobin 9.5 L Lymphocytes # 0.6 L Lymphocytes % 5.9 L Mean Corpuscular Hemoglobin 31.5 Mean Corpuscular Hemoglobin Concent 32.8 Mean Corpuscular Volume 96.0 Mean Platelet Volume 9.1 Monocytes # 0.9 Monocytes % 7.9 Neutrophils # 8.9 H Neutrophils % 81.0 H Nucleated Red Blood Cells # 0.0 Nucleated Red Blood Cells % 0.0 Platelet Count 316 Potassium Level 4.5 Red Blood Count 3.02 L Red Cell Distribution Width 13.0 Sodium Level 135 White Blood Count 10.9 H Test 07/13/16 08:14 07/13/16 08:54 07/13/16 17:22 Bedside Glucose 64 L 146 89 Medications Medications Current Medications IV Flush (NS 10 ml) 10 ml PRN PRN IV FLUSH LINE; Start 06/13/16 at 19:00 Aspirin (Halfprin) 81 mg DAILY PO Last administered on 07/13/16 08:19; Admin Dose 81 MG; Start 06/14/16 at 09:00 Atorvastatin Calcium (Lipitor) 10 mg QHS PO Last administered on 07/12/16 21: 30; Admin Dose 10 MG; Start 06/14/16 at 21:00 Cholecalciferol (Vitamin D) 400 units DAILY PO Last administered on 07/13/16 08:20; Admin Dose 400 UNITS; Start 06/14/16 at 09:00 Ferrous Sulfate (Ferrous Sulfate (Ec)) 325 mg BID PO Last administered on 08:19; Admin Dose 325 MG; Start 06/14/16 at 09:00 Acetaminophen (Tylenol Tab) 500 mg Q4H PRN PO PAIN AND OR ELEVATED TEMP Last administered on 07/05/16 05:49; Admin Dose 500 MG; Start 06/14/16 at 00:00 Miscellaneous Information 1 ea NOTE XX Last administered on 06/18/16 07:57; Admin Dose 1 EA; Start 06/14/16 at 00:30 Glucose (Glutose) 15 gm Q15M PRN PO DECREASED GLUCOSE; Start 06/14/16 at 00:30 Glucose (Glutose) 22.5 gm Q15M PRN PO DECREASED GLUCOSE; Start 06/14/16 at 00: 30 Dextrose (D50w Syringe) 25 ml Q15M PRN IV DECREASED GLUCOSE; Start 06/14/16 at 00:30 Dextrose (D50w Syringe) 50 ml Q15M PRN IV DECREASED GLUCOSE; Start 06/14/16 at 00:30 Glucagon (Glucagen) 1 mg Q15M PRN IM DECREASED GLUCOSE; Start 06/14/16 at 00:30 Glucose (Glutose) 15 gm Q15M PRN BUCCAL DECREASED GLUCOSE; Start 06/14/16 at 00 :30 Diagnostic Test (Pha) (Accucheck) 1 ea 02 XX Last administered on 07/11/16 01: 54; Admin Dose 1 EA; Start 06/14/16 at 02:00 Amlodipine Besylate (Norvasc) 5 mg BID PO Last administered on 07/13/16 08:21 ; Admin Dose 5 MG; Start 06/14/16 at 13:30 Clonidine (Catapres) 0.2 mg Q8 PRN PO Systolic >160 Last administered on 02:29; Admin Dose 0.2 MG; Start 06/14/16 at 13:00 Promethazine HCl/ Codeine (Phenergan/ Codeine) 5 ml Q4H PRN PO COUGH Last administered on 06/21/16 18:04; Admin Dose 5 ML; Start 06/15/16 at 00:00 Pantoprazole (Protonix Tab) 40 mg DAILY@06 PO Last administered on 07/13/16 05 :42; Admin Dose 40 MG; Start 06/16/16 at 06:00 Diphenhydramine HCl (Benadryl) 25 mg HS PRN PO INSOMNIA Last administered on 00:54; Admin Dose 25 MG; Start 06/15/16 at 21:30 Hydralazine HCl (Apresoline) 100 mg Q8 PO Last administered on 07/13/16 15:37 ; Admin Dose 100 MG; Start 06/19/16 at 13:00 Bisacodyl (Dulcolax) 10 mg DAILY PRN PO CONSTIPATION Last administered on 22:38; Admin Dose 10 MG; Start 06/22/16 at 11:30 Benazepril HCl (Lotensin) 40 mg BID PO Last administered on 07/13/16 08:20; Admin Dose 40 MG; Start 06/23/16 at 21:00 Hydralazine HCl (Apresoline) 20 mg Q4H PRN IV for SBP more than 170; Start at 05:00 Ondansetron HCl (Zofran Inj) 4 mg Q6H PRN IV NAUSEA AND/OR VOMITING Last administered on 07/03/16 14:45; Admin Dose 4 MG; Start 06/28/16 at 05:00 Lorazepam (Ativan) 1 mg Q6H PRN IV ANXIETY Last administered on 07/02/16 01:46 ; Admin Dose 1 MG; Start 06/28/16 at 05:00 Cyclobenzaprine HCl (Flexeril) 10 mg TID PO Last administered on 07/13/16 12: 47; Admin Dose 10 MG; Start 07/03/16 at 21:00 Hydromorphone HCl (Dilaudid) 0.5 mg Q4H PRN IV PAIN Last administered on 15:38; Admin Dose 0.5 MG; Start 07/07/16 at 22:00 Hydromorphone HCl (Dilaudid) 1 mg Q3H PRN IV PAIN Last administered on 12:59; Admin Dose 1 MG; Start 07/07/16 at 22:00 Metoprolol Tartrate (Lopressor) 75 mg BID PO Last administered on 07/13/16 08: 21; Admin Dose 75 MG; Start 07/09/16 at 21:00 Insulin Glargine (Lantus) 10 unit DAILY@20 SC Last administered on 07/12/16 21 :42; Admin Dose 10 UNIT; Start 07/11/16 at 20:00 Isoniazid (Isoniazid) 300 mg DAILY PO Last administered on 07/13/16 08:19; Admin Dose 300 MG; Start 07/12/16 at 15:00 Rifampin (Rifampin) 600 mg DAILY PO Last administered on 07/13/16 08:20; Admin Dose 600 MG; Start 07/12/16 at 15:00 Pyrazinamide (Pyrazinamide) 2,000 mg TuThSa@18 PO Last administered on 18:24; Admin Dose 2,000 MG; Start 07/12/16 at 18:00 Ethambutol HCl (Myambutol) 1,600 mg TuThSa@18 PO Last administered on 18:23; Admin Dose 1,600 MG; Start 07/12/16 at 18:00 Doxazosin Mesylate (Cardura) 1 mg BID PO Last administered on 07/13/16 08:17; Admin Dose 1 MG; Start 07/12/16 at 21:00 Clonidine (Catapres) 0.1 mg TID PO ; Start 07/13/16 at 21:00 PATRICIA RUEDA Jul 13, 2016 19:00
[2016-07-13] MEDS: INSULIN GLARGINE [LANtus] 3 ML PEN SC SCH (20:00)
[2016-07-13] MEDS: ATORVASTATIN 10 MG TAB PO SCH (21:50)
[2016-07-14] VITALS (11 sets, daily range): BP systolic 112–164; BP diastolic 54–72; PULSE 69–72; RESP 16–18
[2016-07-14] MEDS: ACCU-CHEK XX SCH ×6 (02:00→21:17)
[2016-07-14] MEDS: PANTOPRAZOLE (EC) 40 MG TAB PO SCH (06:35)
[2016-07-14 07:19] LABS: ADD SCAN DIFF NO
[2016-07-14 07:32] LABS: BASOPHIL # 0.1 10^3/ul (0.0-0.1); BASOPHILS % 0.9 % (0.0-2.0); EOSINOPHILS # 0.5 10^3/ul (0.0-0.5); EOSINOPHILS % 4.2 % (0.0-7.0); HEMATOCRIT 29.6 % (42.0-52.0); LYMPHOCYTES # 0.9 10^3/ul (0.8-2.9); LYMPHOCYTES % 8.4 % (15.0-51.0); MEAN CORPUSCULAR HEMOGLOBIN 32.7 pg (29.0-33.0); MEAN CORPUSCULAR HGB CONC 33.8 g/dl (32.0-37.0); MEAN CORPUSCULAR VOLUME 96.7 fl (82.0-101.0); MEAN PLATELET VOLUME 9.1 fl (7.4-10.4); MONOCYTES % 8.7 % (0.0-11.0); NEUTROPHIL # 8.6 10^3/ul (1.6-7.5); NEUTROPHILS % 77.4 % (39.0-77.0); PLATELET COUNT 366 10^3/UL (140-415); RED BLOOD COUNT 3.06 10^6/ul (4.70-6.10); RED CELL DISTRIBUTION WIDTH 13.1 % (11.5-14.5); WHITE BLOOD COUNT 11.1 10^3/ul (4.8-10.8)
[2016-07-14 07:50] LABS: POTASSIUM 5.3 mmol/L (3.5-5.1)
[2016-07-14] MEDS: INSULIN ASPART [NOVOLOG] 3 ML PEN SC SCH ×7 (07:51→21:00)
[2016-07-14 07:52] LABS: ALBUMIN/GLOBULIN RATIO 0.93; BILIRUBIN,INDIRECT 0.2 mg/dl (0-1.1); BILIRUBIN,TOTAL 0.2 mg/dl (0.2-1.3); CREATININE 7.93 mg/dl (0.61-1.24); TOTAL PROTEIN 6.2 g/dl (6.1-8.1)
[2016-07-14 07:53] LABS: CALCIUM 10.4 mg/dl (8.4-10.2)
[2016-07-14] MEDS: FERROUS SULFATE (EC) 325 MG TAB PO SCH ×2 (09:32→21:08)
[2016-07-14] MEDS: CYCLOBENZAPRINE 10 MG TAB PO SCH ×3 (09:32→21:08)
[2016-07-14] MEDS: ISONIAZID 300 MG TAB PO SCH (09:32)
[2016-07-14] MEDS: SEVELAMER CARBONATE 0.8 GM PKT PO SCH ×3 (09:32→17:03)
[2016-07-14] MEDS: DOXAZOSIN 1 MG TAB PO SCH ×2 (09:32→21:09)
[2016-07-14] MEDS: AMLODIPINE 5 MG TAB PO SCH ×2 (09:33→21:11)
[2016-07-14] MEDS: CHOLECALCIFEROL 400 UNITS TAB PO SCH (09:33)
[2016-07-14] MEDS: RIFAMPIN 300 MG CAP PO SCH (09:33)
[2016-07-14] MEDS: ASPIRIN (EC) 81 MG TAB PO SCH (09:33)
[2016-07-14] MEDS: METOPROLOL 25 MG TAB PO SCH ×2 (09:33→21:10)
[2016-07-14] MEDS: BENAZEPRIL 40 MG TAB PO SCH ×2 (09:34→21:09)
[2016-07-14] MEDS: CALCIUM ACETATE 667 MG CAP PO SCH ×3 (09:34→17:03)
[2016-07-14] MEDS: LEVALBUTEROL (HFA) 15 GM INHALER INH SCH ×3 (09:34→17:02)
[2016-07-14] MEDS: HYDROmorphONE 1 MG/ML SYG IV PRN ×2 (10:29→21:24)
--- NOTE | 2016-07-14 10:45 | CONS ---
Date/Time of Note Date/Time of Note DATE: 07/14/16 TIME: 10:43 Assessment/Plan Assessment/Plan Additional Assessment/Plan assessment/impression - h/o recurrent pleural effusion requiring thoracentesis approximately once a year, last performed in 04/2016 - s/p R VATS, total pulmonary decortication, R pleurodesis on 06/30/2016. Biopsy was negative for fungal stain and AFB stain (micro lab and pathology department), as well as malignancy. It showed granulomatous inflammation with focal necrosis and extensive hyalinization. Chest tube was removed. - positive quantiferon TB gold status of unknown duration. Per Pt, his past PPD was done in 2013, and was negative. 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 - DM - ESRD on HD - CAD s/p CABG in 2010 and cardiac stent in 2013 - HIV screen negative in 07/2016 tested at [facility] recommendations - cont therapy for tuberculosis with: 1) Isoniazid 300mg PO daily after HD (on HD days), 2) Rifampin 600mg PO daily after HD on HD days, 3) Pyrazinamide ~25mg/ kg = 2g PO TIW after HD, 4) Ethambutol 20mg/kg = 1500mg PO TIW after HD - Continue airborne isolation Consultation Date/Type/Reason Admit Date/Time Jun 13, 2016 at 14:48 Initial Consult Date 07/04/16 Type of Consultation: id Referring Provider: EVA COX MD 24 HR Interval Summary Free Text/Dictation d/w patient. Exam/Review of Systems Vital Signs Vitals Vital Signs Date Time Temp Pulse Resp B/P Pulse Ox O2 Delivery O2 Flow Rate FiO2 07/14/16 08:58 69 07/14/16 07:47 98.4 17 153/63 96 07/13/16 04:00 Nasal Cannula 2.0 Intake and Output 07/13/16 07/13/1617 15:00 23:00 07:00 Intake Total 500 ml 1260 ml Balance 500 ml 1260 ml Exam Constitutional: alert, oriented, well developed Psych: nl mood/affect, no complaints Head: atraumatic, normocephalic Eyes: EOMI, PERRL, nl conjunctiva, nl lids, nl sclera Neck: non-tender, supple Respiratory: clear to auscultation, normal air movement Cardiovascular: nl pulses, regular rate and rhythm Results Result Diagram: 07/14/16 0650 07/14/16 0650 Results 24 hrs Laboratory Tests Test 07/13/16 17:22 07/13/16 21:48 07/14/16 06:34 07/14/16 06:50 Bedside Glucose 89 146 124 Alanine Aminotransferase (ALT/SGPT) 14 Albumin 3.0 L Albumin/Globulin Ratio 0.93 Alkaline Phosphatase 101 Anion Gap 16 Aspartate Amino Transf (AST/SGOT) 20 Basophils # 0.1 Basophils % 0.9 Blood Urea Nitrogen 50 H Calcium Level 10.4 H Carbon Dioxide Level 27 Chloride Level 93 L Creatinine 7.93 H Direct Bilirubin 0.00 Eosinophils # 0.5 Eosinophils % 4.2 Globulin 3.20 Glucose Level 109 Hematocrit 29.6 L Hemoglobin 10.0 L Indirect Bilirubin 0.2 Lymphocytes # 0.9 Lymphocytes % 8.4 L Mean Corpuscular Hemoglobin 32.7 Mean Corpuscular Hemoglobin Concent 33.8 Mean Corpuscular Volume 96.7 Mean Platelet Volume 9.1 Monocytes # 1.0 H Monocytes % 8.7 Neutrophils # 8.6 H Neutrophils % 77.4 H Nucleated Red Blood Cells # 0.0 Nucleated Red Blood Cells % 0.0 Platelet Count 366 Potassium Level 5.3 H Red Blood Count 3.06 L Red Cell Distribution Width 13.1 Sodium Level 131 L Total Bilirubin 0.2 Total Protein 6.2 White Blood Count 11.1 H Test 07/14/16 07:45 Bedside Glucose 113 Medications Medications Current Medications IV Flush (NS 10 ml) 10 ml PRN PRN IV FLUSH LINE; Start 06/13/16 at 19:00 Aspirin (Halfprin) 81 mg DAILY PO Last administered on 07/14/16t 09:33; Admin Dose 81 MG; Start 06/14/16 at 09:00 Atorvastatin Calcium (Lipitor) 10 mg QHS PO Last administered on 07/13/16 21: 50; Admin Dose 10 MG; Start 06/14/16 at 21:00 Cholecalciferol (Vitamin D) 400 units DAILY PO Last administered on 07/14/16 09:33; Admin Dose 400 UNITS; Start 06/14/16 at 09:00 Ferrous Sulfate (Ferrous Sulfate (Ec)) 325 mg BID PO Last administered on 09:32; Admin Dose 325 MG; Start 06/14/16 at 09:00 Acetaminophen (Tylenol Tab) 500 mg Q4H PRN PO PAIN AND OR ELEVATED TEMP Last administered on 07/05/16 05:49; Admin Dose 500 MG; Start 06/14/16 at 00:00 Miscellaneous Information 1 ea NOTE XX Last administered on 06/18/16 07:57; Admin Dose 1 EA; Start 06/14/16 at 00:30 Glucose (Glutose) 15 gm Q15M PRN PO DECREASED GLUCOSE; Start 06/14/16 at 00:30 Glucose (Glutose) 22.5 gm Q15M PRN PO DECREASED GLUCOSE; Start 06/14/16 at 00: 30 Dextrose (D50w Syringe) 25 ml Q15M PRN IV DECREASED GLUCOSE; Start 06/14/16 at 00:30 Dextrose (D50w Syringe) 50 ml Q15M PRN IV DECREASED GLUCOSE; Start 06/14/16 at 00:30 Glucagon (Glucagen) 1 mg Q15M PRN IM DECREASED GLUCOSE; Start 06/14/16 at 00:30 Glucose (Glutose) 15 gm Q15M PRN BUCCAL DECREASED GLUCOSE; Start 06/14/16 at 00 :30 Diagnostic Test (Pha) (Accucheck) 1 ea 02 XX Last administered on 07/11/16 01: 54; Admin Dose 1 EA; Start 06/14/16 at 02:00 Amlodipine Besylate (Norvasc) 5 mg BID PO Last administered on 07/14/16 09:33 ; Admin Dose 5 MG; Start 06/14/16 at 13:30 Clonidine (Catapres) 0.2 mg Q8 PRN PO Systolic >160 Last administered on 02:29; Admin Dose 0.2 MG; Start 06/14/16 at 13:00 Promethazine HCl/ Codeine (Phenergan/ Codeine) 5 ml Q4H PRN PO COUGH Last administered on 06/21/16 18:04; Admin Dose 5 ML; Start 06/15/16 at 00:00 Pantoprazole (Protonix Tab) 40 mg DAILY@06 PO Last administered on 07/14/16 06 :35; Admin Dose 40 MG; Start 06/16/16 at 06:00 Diphenhydramine HCl (Benadryl) 25 mg HS PRN PO INSOMNIA Last administered on 00:54; Admin Dose 25 MG; Start 06/15/16 at 21:30 Hydralazine HCl (Apresoline) 100 mg Q8 PO Last administered on 07/14/16 06:35 ; Admin Dose 100 MG; Start 06/19/16 at 13:00 Bisacodyl (Dulcolax) 10 mg DAILY PRN PO CONSTIPATION Last administered on 22:38; Admin Dose 10 MG; Start 06/22/16 at 11:30 Benazepril HCl (Lotensin) 40 mg BID PO Last administered on 07/14/16 09:34; Admin Dose 40 MG; Start 06/23/16 at 21:00 Hydralazine HCl (Apresoline) 20 mg Q4H PRN IV for SBP more than 170; Start at 05:00 Ondansetron HCl (Zofran Inj) 4 mg Q6H PRN IV NAUSEA AND/OR VOMITING Last administered on 07/03/16 14:45; Admin Dose 4 MG; Start 06/28/16 at 05:00 Lorazepam (Ativan) 1 mg Q6H PRN IV ANXIETY Last administered on 07/02/16 01:46 ; Admin Dose 1 MG; Start 06/28/16 at 05:00 Cyclobenzaprine HCl (Flexeril) 10 mg TID PO Last administered on 07/14/16 09: 32; Admin Dose 10 MG; Start 07/03/16 at 21:00 Hydromorphone HCl (Dilaudid) 0.5 mg Q4H PRN IV PAIN Last administered on 15:38; Admin Dose 0.5 MG; Start 07/07/16 at 22:00 Hydromorphone HCl (Dilaudid) 1 mg Q3H PRN IV PAIN Last administered on 10:29; Admin Dose 1 MG; Start 07/07/16 at 22:00 Metoprolol Tartrate (Lopressor) 75 mg BID PO Last administered on 07/14/16 09: 33; Admin Dose 75 MG; Start 07/09/16 at 21:00 Insulin Glargine (Lantus) 10 unit DAILY@20 SC Last administered on 07/12/16 21 :42; Admin Dose 10 UNIT; Start 07/11/16 at 20:00 Isoniazid (Isoniazid) 300 mg DAILY PO Last administered on 07/14/16 09:32; Admin Dose 300 MG; Start 07/12/16 at 15:00 Rifampin (Rifampin) 600 mg DAILY PO Last administered on 07/14/16 09:33; Admin Dose 600 MG; Start 07/12/16 at 15:00 Pyrazinamide (Pyrazinamide) 2,000 mg TuThSa@18 PO Last administered on 18:24; Admin Dose 2,000 MG; Start 07/12/16 at 18:00 Ethambutol HCl (Myambutol) 1,600 mg TuThSa@18 PO Last administered on 18:23; Admin Dose 1,600 MG; Start 07/12/16 at 18:00 Doxazosin Mesylate (Cardura) 1 mg BID PO Last administered on 07/14/16 09:32; Admin Dose 1 MG; Start 07/12/16 at 21:00 Clonidine (Catapres) 0.1 mg TID PO Last administered on 07/14/16 09:34; Admin Dose 0.1 MG; Start 07/13/16 at 21:00 BRENDA ISRAEL MD Jul 14, 2016 10:44
[2016-07-14] MEDS ORDERED: NA POLYST SULFON 15 GM/60 ML BTL PO ONE (11:30)
--- NOTE | 2016-07-14 12:26 | PN ---
Date/Time of Note Date/Time of Note DATE: 07/14/16 TIME: 12:21 Assessment/Plan VTE Prophylaxis VTE Prophylaxis Intervention: SCD's Lines/Catheters IV [facility]ter Type (from [facility]): PICC Line Central line still needed: Yes Urinary Cath still in place: No Assessment/Plan Chief Complaint/Hosp Course Assessment and plan - Anemia, status post blood transfusion, heparin is on hold, Dr. Borjas is following from gastroenterology consultation. - Recurrent pleural effusions. Dr. Martinez is following in thoracic surgery consultation. S/p VATS 06/30. Biopsy revealed granulomatous inflammation with focal necrosis and extensive hyalinization. Sputum for AFB negative 3. Continued on, on airborne isolation until cleared by department of health. Dr. Carl is following in infectious disease consultation. - Quantiferon Gold positive, prior Hx of TB per department of health, s/p treatment in 1998, continue TB therapy, contact isolation per ID. - Right pleural effusion, status post thoracentesis. Dr. Dale is following in pulmonology consultation. - End-stage renal disease, continue hemodialysis. Dr. Saunders is following in nephrology consultation. - Diabetes mellitus type 2, continue Lantus, pre-meal NovoLog and NovoLog per mild algorithm sliding scale. - Hypertension. Dr. De Santiago is following and cardiology consultation. - Coronary artery disease, status post coronary artery bypass graft. - Permanent pacemaker. No acute issues. - Dyslipidemia. Continue Lipitor. Continue heparin for deep venous thrombosis prophylaxis and Protonix for peptic ulcer disease prophylaxis. Further recommendations based on clinical course. Plan of care discussed with Dr. Price. Problems: Subjective 24 Hr Interval Summary Free Text/Dictation Patient denies SOB, breathing comfortable on RA, complains of left chest pain, s /p episode of emesis today. Exam/Review of Systems Vital Signs Vitals Vital Signs Date Time Temp Pulse Resp B/P Pulse Ox O2 Delivery O2 Flow Rate FiO2 07/14/16 11:56 97.5 80 18 112/69 96 07/13/16 04:00 Nasal Cannula 2.0 Intake and Output 07/13/16 07/13/16 07/14/16 15:00 23:00 07:00 Intake Total 500 ml 1260 ml Balance 500 ml 1260 ml Exam Constitutional: alert Psych: no complaints Head: atraumatic, normocephalic Eyes: nl conjunctiva ENMT: nl external ears & nose Neck: non-tender, supple Respiratory: clear to auscultation. Cardiovascular: nl pulses Gastrointestinal: non-tender, soft Musculoskeletal: nl extremities to inspection Extremities: normal pulses Neurological: [employer] II-XII intact Skin: nl turgor Results Result Diagram: 07/14/16 0650 07/14/16 0650 Results 24 hrs Laboratory Tests Test 07/13/16 17:22 07/13/16 21:48 07/14/16 06:34 07/14/16 06:50 Bedside Glucose 89 146 124 Alanine Aminotransferase (ALT/SGPT) 14 Albumin 3.0 L Albumin/Globulin Ratio 0.93 Alkaline Phosphatase 101 Anion Gap 16 Aspartate Amino Transf (AST/SGOT) 20 Basophils # 0.1 Basophils % 0.9 Blood Urea Nitrogen 50 H Calcium Level 10.4 H Carbon Dioxide Level 27 Chloride Level 93 L Creatinine 7.93 H Direct Bilirubin 0.00 Eosinophils # 0.5 Eosinophils % 4.2 Globulin 3.20 Glucose Level 109 Hematocrit 29.6 L Hemoglobin 10.0 L Indirect Bilirubin 0.2 Lymphocytes # 0.9 Lymphocytes % 8.4 L Mean Corpuscular Hemoglobin 32.7 Mean Corpuscular Hemoglobin Concent 33.8 Mean Corpuscular Volume 96.7 Mean Platelet Volume 9.1 Monocytes # 1.0 H Monocytes % 8.7 Neutrophils # 8.6 H Neutrophils % 77.4 H Nucleated Red Blood Cells # 0.0 Nucleated Red Blood Cells % 0.0 Platelet Count 366 Potassium Level 5.3 H Red Blood Count 3.06 L Red Cell Distribution Width 13.1 Sodium Level 131 L Total Bilirubin 0.2 Total Protein 6.2 White Blood Count 11.1 H Test 07/14/16 07:45 Bedside Glucose 113 Medications Medications Current Medications IV Flush (NS 10 ml) 10 ml PRN PRN IV FLUSH LINE; Start 06/13/16 at 19:00 Aspirin (Halfprin) 81 mg DAILY PO Last administered on 07/14/16 09:33; Admin Dose 81 MG; Start 06/14/16 at 09:00 Atorvastatin Calcium (Lipitor) 10 mg QHS PO Last administered on 07/13/16 21: 50; Admin Dose 10 MG; Start 06/14/16 at 21:00 Cholecalciferol (Vitamin D) 400 units DAILY PO Last administered on 07/14/16 09:33; Admin Dose 400 UNITS; Start 06/14/16 at 09:00 Ferrous Sulfate (Ferrous Sulfate (Ec)) 325 mg BID PO Last administered on 09:32; Admin Dose 325 MG; Start 06/14/16 at 09:00 Acetaminophen (Tylenol Tab) 500 mg Q4H PRN PO PAIN AND OR ELEVATED TEMP Last administered on 07/05/16 05:49; Admin Dose 500 MG; Start 06/14/16 at 00:00 Miscellaneous Information 1 ea NOTE XX Last administered on 06/18/16 07:57; Admin Dose 1 EA; Start 06/14/16 at 00:30 Glucose (Glutose) 15 gm Q15M PRN PO DECREASED GLUCOSE; Start 06/14/16 at 00:30 Glucose (Glutose) 22.5 gm Q15M PRN PO DECREASED GLUCOSE; Start 06/14/16 at 00: 30 Dextrose (D50w Syringe) 25 ml Q15M PRN IV DECREASED GLUCOSE; Start 06/14/16 at 00:30 Dextrose (D50w Syringe) 50 ml Q15M PRN IV DECREASED GLUCOSE; Start 06/14/16 at 00:30 Glucagon (Glucagen) 1 mg Q15M PRN IM DECREASED GLUCOSE; Start 06/14/16 at 00:30 Glucose (Glutose) 15 gm Q15M PRN BUCCAL DECREASED GLUCOSE; Start 06/14/16 at 00 :30 Diagnostic Test (Pha) (Accucheck) 1 ea 02 XX Last administered on 07/11/16 01: 54; Admin Dose 1 EA; Start 06/14/16 at 02:00 Amlodipine Besylate (Norvasc) 5 mg BID PO Last administered on 07/14/16 09:33 ; Admin Dose 5 MG; Start 06/14/16 at 13:30 Clonidine (Catapres) 0.2 mg Q8 PRN PO Systolic >160 Last administered on 02:29; Admin Dose 0.2 MG; Start 06/14/16 at 13:00 Promethazine HCl/ Codeine (Phenergan/ Codeine) 5 ml Q4H PRN PO COUGH Last administered on 06/21/16 18:04; Admin Dose 5 ML; Start 06/15/16 at 00:00 Pantoprazole (Protonix Tab) 40 mg DAILY@06 PO Last administered on 07/14/16 06 :35; Admin Dose 40 MG; Start 06/16/16 at 06:00 Diphenhydramine HCl (Benadryl) 25 mg HS PRN PO INSOMNIA Last administered on 00:54; Admin Dose 25 MG; Start 06/15/16 at 21:30 Hydralazine HCl (Apresoline) 100 mg Q8 PO Last administered on 07/14/16 06:35 ; Admin Dose 100 MG; Start 06/19/16 at 13:00 Bisacodyl (Dulcolax) 10 mg DAILY PRN PO CONSTIPATION Last administered on 22:38; Admin Dose 10 MG; Start 06/22/16 at 11:30 Benazepril HCl (Lotensin) 40 mg BID PO Last administered on 07/14/16 09:34; Admin Dose 40 MG; Start 06/23/16 at 21:00 Hydralazine HCl (Apresoline) 20 mg Q4H PRN IV for SBP more than 170; Start at 05:00 Ondansetron HCl (Zofran Inj) 4 mg Q6H PRN IV NAUSEA AND/OR VOMITING Last administered on 07/03/16 14:45; Admin Dose 4 MG; Start 06/28/16 at 05:00 Lorazepam (Ativan) 1 mg Q6H PRN IV ANXIETY Last administered on 07/02/16 01:46 ; Admin Dose 1 MG; Start 06/28/16 at 05:00 Cyclobenzaprine HCl (Flexeril) 10 mg TID PO Last administered on 07/14/16 09: 32; Admin Dose 10 MG; Start 07/03/16 at 21:00 Hydromorphone HCl (Dilaudid) 0.5 mg Q4H PRN IV PAIN Last administered on 15:38; Admin Dose 0.5 MG; Start 07/07/16 at 22:00 Hydromorphone HCl (Dilaudid) 1 mg Q3H PRN IV PAIN Last administered on 10:29; Admin Dose 1 MG; Start 07/07/16 at 22:00 Metoprolol Tartrate (Lopressor) 75 mg BID PO Last administered on 07/14/16 09: 33; Admin Dose 75 MG; Start 07/09/16 at 21:00 Insulin Glargine (Lantus) 10 unit DAILY@20 SC Last administered on 07/12/16 21 :42; Admin Dose 10 UNIT; Start 07/11/16 at 20:00 Isoniazid (Isoniazid) 300 mg DAILY PO Last administered on 07/14/16 09:32; Admin Dose 300 MG; Start 07/12/16 at 15:00 Rifampin (Rifampin) 600 mg DAILY PO Last administered on 07/14/16 09:33; Admin Dose 600 MG; Start 07/12/16 at 15:00 Pyrazinamide (Pyrazinamide) 2,000 mg TuThSa@18 PO Last administered on 18:24; Admin Dose 2,000 MG; Start 07/12/16 at 18:00 Ethambutol HCl (Myambutol) 1,600 mg TuThSa@18 PO Last administered on 18:23; Admin Dose 1,600 MG; Start 07/12/16 at 18:00 Doxazosin Mesylate (Cardura) 1 mg BID PO Last administered on 07/14/16 09:32; Admin Dose 1 MG; Start 07/12/16 at 21:00 Clonidine (Catapres) 0.1 mg TID PO Last administered on 07/14/16 09:34; Admin Dose 0.1 MG; Start 07/13/16 at 21:00 CECILIA DAMICO Jul 14, 2016 12:26
[2016-07-14] MEDS: ONDANSETRON 4 MG INJ IV PRN (12:39)
--- NOTE | 2016-07-14 17:16 | CONS ---
Date/Time of Note Date/Time of Note DATE: 07/14/16 TIME: 17:14 Assessment/Plan Assessment/Plan Chief Complaint/Hosp Course IMPRESSION: 1. Abnormal electrocardiogram, assess for acute coronary syndrome.-negative troponin x 3 2. History of recent negative stress, May 2015. 3. History of percutaneous transluminal coronary angioplasty and stent placement in 2014 to the left main left anterior descending. No current chest pain. 4. Hypertension, mildly elevated. 5. History of dyslipidemia. 6. Pleural effusion, status post thoracentesis. 7. Possible pneumonia/cough-improved 8. Diabetes mellitus. 9. End-stage renal disease, on hemodialysis. 10. Had WCT-06/27 which was paced beats at approx 100. NO recurrence since .MAC infection/colonization? RECOMMENDATIONS: -Tele -Continue metoprolol -Continue Benazepril -Continue norvasc/hydralazine and now cardura -Hold clonidine nand follow BP clsoely -Continue asa/statin/plavix -Consider abx's and f/u cx data -Follow volume status with HD for volume removal -Now on treatment for TB Problems: Consultation Date/Type/Reason Admit Date/Time Jun 13, 2016 at 14:48 Initial Consult Date 06/14/2016 Type of Consultation: Cardiology Reason for Consultation abnl ecg Referring Provider: EVA COX MD Exam/Review of Systems Vital Signs Vitals Vital Signs Date Time Temp Pulse Resp B/P Pulse Ox O2 Delivery O2 Flow Rate FiO2 07/14/16 16:45 69 07/14/16 16:22 98.1 18 128/72 96 07/13/16 04:00 Nasal Cannula 2.0 Intake and Output 07/13/16 07/13/16 07/14/16 15:00 23:00 07:00 Intake Total 500 ml 1260 ml Balance 500 ml 1260 ml Exam Review of Systems: CONSTITUTIONAL: No fevers, chills. PULMONARY: No sob CARDIOVASCULAR: No chest pain/palpitations GASTROINTESTINAL: No nausea/vomiting. GENITOURINARY: No hematuria/dysuria. MUSCULOSKELETAL: No myagias/arthalgias. PSYCHIATRIC: The patient denies depression. NEUROLOGIC: No weakness Constitutional: alert, oriented Psych: no complaints Head: normocephalic ENMT: mucosa pink and moist Neck: jvd (9 cm water), supple Respiratory: diminished breath sounds (at bases/B) Cardiovascular: regular rate and rhythm Gastrointestinal: non-tender, soft Musculoskeletal: muscle tone (normal) Extremities: edema (none) Neurological: other (No focal deficits) Results Result Diagram: 07/14/16 0650 07/14/16 0650 Results 24 hrs Laboratory Tests Test 07/13/16 17:22 07/13/16 21:48 07/14/16 06:34 07/14/16 06:50 Bedside Glucose 89 146 124 Alanine Aminotransferase (ALT/SGPT) 14 Albumin 3.0 L Albumin/Globulin Ratio 0.93 Alkaline Phosphatase 101 Anion Gap 16 Aspartate Amino Transf (AST/SGOT) 20 Basophils # 0.1 Basophils % 0.9 Blood Urea Nitrogen 50 H Calcium Level 10.4 H Carbon Dioxide Level 27 Chloride Level 93 L Creatinine 7.93 H Direct Bilirubin 0.00 Eosinophils # 0.5 Eosinophils % 4.2 Globulin 3.20 Glucose Level 109 Hematocrit 29.6 L Hemoglobin 10.0 L Indirect Bilirubin 0.2 Lymphocytes # 0.9 Lymphocytes % 8.4 L Mean Corpuscular Hemoglobin 32.7 Mean Corpuscular Hemoglobin Concent 33.8 Mean Corpuscular Volume 96.7 Mean Platelet Volume 9.1 Monocytes # 1.0 H Monocytes % 8.7 Neutrophils # 8.6 H Neutrophils % 77.4 H Nucleated Red Blood Cells # 0.0 Nucleated Red Blood Cells % 0.0 Platelet Count 366 Potassium Level 5.3 H Red Blood Count 3.06 L Red Cell Distribution Width 13.1 Sodium Level 131 L Total Bilirubin 0.2 Total Protein 6.2 White Blood Count 11.1 H Test 07/14/16 07:45 07/14/16 12:22 07/14/16 16:59 Bedside Glucose 113 128 119 Medications Medications Current Medications IV Flush (NS 10 ml) 10 ml PRN PRN IV FLUSH LINE; Start 06/13/16 at 19:00 Aspirin (Halfprin) 81 mg DAILY PO Last administered on 07/14/16 09:33; Admin Dose 81 MG; Start 06/14/16 at 09:00 Atorvastatin Calcium (Lipitor) 10 mg QHS PO Last administered on 07/13/16 21: 50; Admin Dose 10 MG; Start 06/14/16 at 21:00 Cholecalciferol (Vitamin D) 400 units DAILY PO Last administered on 07/14/16 09:33; Admin Dose 400 UNITS; Start 06/14/16 at 09:00 Ferrous Sulfate (Ferrous Sulfate (Ec)) 325 mg BID PO Last administered on 09:32; Admin Dose 325 MG; Start 06/14/16 at 09:00 Acetaminophen (Tylenol Tab) 500 mg Q4H PRN PO PAIN AND OR ELEVATED TEMP Last administered on 07/05/16 05:49; Admin Dose 500 MG; Start 06/14/16 at 00:00 Miscellaneous Information 1 ea NOTE XX Last administered on 06/18/16 07:57; Admin Dose 1 EA; Start 06/14/16 at 00:30 Glucose (Glutose) 15 gm Q15M PRN PO DECREASED GLUCOSE; Start 06/14/16 at 00:30 Glucose (Glutose) 22.5 gm Q15M PRN PO DECREASED GLUCOSE; Start 06/14/16 at 00: 30 Dextrose (D50w Syringe) 25 ml Q15M PRN IV DECREASED GLUCOSE; Start 06/14/16 at 00:30 Dextrose (D50w Syringe) 50 ml Q15M PRN IV DECREASED GLUCOSE; Start 06/14/16 at 00:30 Glucagon (Glucagen) 1 mg Q15M PRN IM DECREASED GLUCOSE; Start 06/14/16 at 00:30 Glucose (Glutose) 15 gm Q15M PRN BUCCAL DECREASED GLUCOSE; Start 06/14/16 at 00 :30 Diagnostic Test (Pha) (Accucheck) 1 ea 02 XX Last administered on 07/11/16 01: 54; Admin Dose 1 EA; Start 06/14/16 at 02:00 Amlodipine Besylate (Norvasc) 5 mg BID PO Last administered on 07/14/16 09:33 ; Admin Dose 5 MG; Start 06/14/16 at 13:30 Clonidine (Catapres) 0.2 mg Q8 PRN PO Systolic >160 Last administered on 02:29; Admin Dose 0.2 MG; Start 06/14/16 at 13:00 Promethazine HCl/ Codeine (Phenergan/ Codeine) 5 ml Q4H PRN PO COUGH Last administered on 06/21/16 18:04; Admin Dose 5 ML; Start 06/15/16 at 00:00 Pantoprazole (Protonix Tab) 40 mg DAILY@06 PO Last administered on 07/14/16 06 :35; Admin Dose 40 MG; Start 06/16/16 at 06:00 Diphenhydramine HCl (Benadryl) 25 mg HS PRN PO INSOMNIA Last administered on 00:54; Admin Dose 25 MG; Start 06/15/16 at 21:30 Hydralazine HCl (Apresoline) 100 mg Q8 PO Last administered on 07/14/16 06:35 ; Admin Dose 100 MG; Start 06/19/16 at 13:00 Bisacodyl (Dulcolax) 10 mg DAILY PRN PO CONSTIPATION Last administered on 22:38; Admin Dose 10 MG; Start 06/22/16 at 11:30 Benazepril HCl (Lotensin) 40 mg BID PO Last administered on 07/14/16 09:34; Admin Dose 40 MG; Start 06/23/16 at 21:00 Hydralazine HCl (Apresoline) 20 mg Q4H PRN IV for SBP more than 170; Start at 05:00 Ondansetron HCl (Zofran Inj) 4 mg Q6H PRN IV NAUSEA AND/OR VOMITING Last administered on 07/14/16 12:39; Admin Dose 4 MG; Start 06/28/16 at 05:00 Lorazepam (Ativan) 1 mg Q6H PRN IV ANXIETY Last administered on 07/02/16 01:46 ; Admin Dose 1 MG; Start 06/28/16 at 05:00 Cyclobenzaprine HCl (Flexeril) 10 mg TID PO Last administered on 07/14/16 09: 32; Admin Dose 10 MG; Start 07/03/16 at 21:00 Hydromorphone HCl (Dilaudid) 0.5 mg Q4H PRN IV PAIN Last administered on 15:38; Admin Dose 0.5 MG; Start 07/07/16 at 22:00 Hydromorphone HCl (Dilaudid) 1 mg Q3H PRN IV PAIN Last administered on 10:29; Admin Dose 1 MG; Start 07/07/16 at 22:00 Metoprolol Tartrate (Lopressor) 75 mg BID PO Last administered on 07/14/16 09: 33; Admin Dose 75 MG; Start 07/09/16 at 21:00 Insulin Glargine (Lantus) 10 unit DAILY@20 SC Last administered on 07/12/16 21 :42; Admin Dose 10 UNIT; Start 07/11/16 at 20:00 Isoniazid (Isoniazid) 300 mg DAILY PO Last administered on 07/14/16 09:32; Admin Dose 300 MG; Start 07/12/16 at 15:00 Rifampin (Rifampin) 600 mg DAILY PO Last administered on 07/14/16 09:33; Admin Dose 600 MG; Start 07/12/16 at 15:00 Pyrazinamide (Pyrazinamide) 2,000 mg TuThSa@18 PO Last administered on 18:24; Admin Dose 2,000 MG; Start 07/12/16 at 18:00 Ethambutol HCl (Myambutol) 1,600 mg TuThSa@18 PO Last administered on 18:23; Admin Dose 1,600 MG; Start 07/12/16 at 18:00 Doxazosin Mesylate (Cardura) 1 mg BID PO Last administered on 07/14/16 09:32; Admin Dose 1 MG; Start 07/12/16 at 21:00 Clonidine (Catapres) 0.1 mg TID PO Last administered on 07/14/16 09:34; Admin Dose 0.1 MG; Start 07/13/16 at 21:00 SHERITA SCOTT 13, 2017 17:16
[2016-07-14] MEDS: ATORVASTATIN 10 MG TAB PO SCH (21:08)
[2016-07-14] MEDS: INSULIN GLARGINE [LANtus] 3 ML PEN SC SCH (21:22)
--- NOTE | 2016-07-14 23:27 | CONS ---
Date/Time of Note Date/Time of Note DATE: 07/14/16 TIME: 23:26 Assessment/Plan Assessment/Plan Chief Complaint/Hosp Course ESRD HTN PNEUMONIA better PLEURAL EFFUSION s/p vats ctube out hyperkalemia HX TB GOLD TEST +r/o ptb ANEMIA PLAN PER CARDIO NON COMPLIANCE W HD hd refused hd 3 x wk HD T/THURSDAY PT REFUSED HD ON THURSDAY per pcp fluid res PER SURGERY per id on anti tb drugs Problems: Consultation Date/Type/Reason Admit Date/Time Jun 13, 2016 at 14:48 Type of Consultation: renal Referring Provider: EVA COX MD 24 HR Interval Summary Constitutional: no complaints Exam/Review of Systems Vital Signs Vitals Vital Signs Date Time Temp Pulse Resp B/P Pulse Ox O2 Delivery O2 Flow Rate FiO2 07/14/16 20:13 97.8 70 16 164/54 94 07/13/16 04:00 Nasal Cannula 2.0 Intake and Output 07/13/16 07/13/16 07/14/16 15:00 23:00 07:00 Intake Total 500 ml 1260 ml Balance 500 ml 1260 ml Exam Respiratory: clear to auscultation Cardiovascular: regular rate and rhythm Gastrointestinal: soft Genitourinary - Male: nl penis Musculoskeletal: nl gait and stance Extremities: normal pulses Results Result Diagram: 07/14/16 0650 07/14/16 0650 Results 24 hrs Laboratory Tests Test 07/14/16 06:34 07/14/16 06:50 07/14/16 07:45 07/14/16 12:22 Bedside Glucose 124 113 128 Alanine Aminotransferase (ALT/SGPT) 14 Albumin 3.0 L Albumin/Globulin Ratio 0.93 Alkaline Phosphatase 101 Anion Gap 16 Aspartate Amino Transf (AST/SGOT) 20 Basophils # 0.1 Basophils % 0.9 Blood Urea Nitrogen 50 H Calcium Level 10.4 H Carbon Dioxide Level 27 Chloride Level 93 L Creatinine 7.93 H Direct Bilirubin 0.00 Eosinophils # 0.5 Eosinophils % 4.2 Globulin 3.20 Glucose Level 109 Hematocrit 29.6 L Hemoglobin 10.0 L Indirect Bilirubin 0.2 Lymphocytes # 0.9 Lymphocytes % 8.4 L Mean Corpuscular Hemoglobin 32.7 Mean Corpuscular Hemoglobin Concent 33.8 Mean Corpuscular Volume 96.7 Mean Platelet Volume 9.1 Monocytes # 1.0 H Monocytes % 8.7 Neutrophils # 8.6 H Neutrophils % 77.4 H Nucleated Red Blood Cells # 0.0 Nucleated Red Blood Cells % 0.0 Platelet Count 366 Potassium Level 5.3 H Red Blood Count 3.06 L Red Cell Distribution Width 13.1 Sodium Level 131 L Total Bilirubin 0.2 Total Protein 6.2 White Blood Count 11.1 H Test 07/14/16 16:59 07/14/16 21:13 Bedside Glucose 119 132 Medications Medications Current Medications IV Flush (NS 10 ml) 10 ml PRN PRN IV FLUSH LINE; Start 06/13/16 at 19:00 Aspirin (Halfprin) 81 mg DAILY PO Last administered on 07/14/16 09:33; Admin Dose 81 MG; Start 06/14/16 at 09:00 Atorvastatin Calcium (Lipitor) 10 mg QHS PO Last administered on 07/14/16 21: 08; Admin Dose 10 MG; Start 06/14/16 at 21:00 Cholecalciferol (Vitamin D) 400 units DAILY PO Last administered on 07/14/16 09:33; Admin Dose 400 UNITS; Start 06/14/16 at 09:00 Ferrous Sulfate (Ferrous Sulfate (Ec)) 325 mg BID PO Last administered on 21:08; Admin Dose 325 MG; Start 06/14/16 at 09:00 Acetaminophen (Tylenol Tab) 500 mg Q4H PRN PO PAIN AND OR ELEVATED TEMP Last administered on 07/05/16 05:49; Admin Dose 500 MG; Start 06/14/16 at 00:00 Miscellaneous Information 1 ea NOTE XX Last administered on 06/18/16 07:57; Admin Dose 1 EA; Start 06/14/16 at 00:30 Glucose (Glutose) 15 gm Q15M PRN PO DECREASED GLUCOSE; Start 06/14/16 at 00:30 Glucose (Glutose) 22.5 gm Q15M PRN PO DECREASED GLUCOSE; Start 06/14/16 at 00: 30 Dextrose (D50w Syringe) 25 ml Q15M PRN IV DECREASED GLUCOSE; Start 06/14/16 at 00:30 Dextrose (D50w Syringe) 50 ml Q15M PRN IV DECREASED GLUCOSE; Start 06/14/16 at 00:30 Glucagon (Glucagen) 1 mg Q15M PRN IM DECREASED GLUCOSE; Start 06/14/16 at 00:30 Glucose (Glutose) 15 gm Q15M PRN BUCCAL DECREASED GLUCOSE; Start 06/14/16 at 00 :30 Diagnostic Test (Pha) (Accucheck) 1 ea 02 XX Last administered on 07/11/16 01: 54; Admin Dose 1 EA; Start 06/14/16 at 02:00 Amlodipine Besylate (Norvasc) 5 mg BID PO Last administered on 07/14/16 21:11 ; Admin Dose 5 MG; Start 06/14/16 at 13:30 Clonidine (Catapres) 0.2 mg Q8 PRN PO Systolic >160 Last administered on 02:29; Admin Dose 0.2 MG; Start 06/14/16 at 13:00 Promethazine HCl/ Codeine (Phenergan/ Codeine) 5 ml Q4H PRN PO COUGH Last administered on 06/21/16 18:04; Admin Dose 5 ML; Start 06/15/16 at 00:00 Pantoprazole (Protonix Tab) 40 mg DAILY@06 PO Last administered on 07/14/16 06 :35; Admin Dose 40 MG; Start 06/16/16 at 06:00 Diphenhydramine HCl (Benadryl) 25 mg HS PRN PO INSOMNIA Last administered on 00:54; Admin Dose 25 MG; Start 06/15/16 at 21:30 Hydralazine HCl (Apresoline) 100 mg Q8 PO Last administered on 07/14/16 21:09 ; Admin Dose 100 MG; Start 06/19/16 at 13:00 Bisacodyl (Dulcolax) 10 mg DAILY PRN PO CONSTIPATION Last administered on 22:38; Admin Dose 10 MG; Start 06/22/16 at 11:30 Benazepril HCl (Lotensin) 40 mg BID PO Last administered on 07/14/16 21:09; Admin Dose 40 MG; Start 06/23/16 at 21:00 Hydralazine HCl (Apresoline) 20 mg Q4H PRN IV for SBP more than 170; Start at 05:00 Ondansetron HCl (Zofran Inj) 4 mg Q6H PRN IV NAUSEA AND/OR VOMITING Last administered on 07/14/16 12:39; Admin Dose 4 MG; Start 06/28/16 at 05:00 Lorazepam (Ativan) 1 mg Q6H PRN IV ANXIETY Last administered on 07/02/16 01:46 ; Admin Dose 1 MG; Start 06/28/16 at 05:00 Cyclobenzaprine HCl (Flexeril) 10 mg TID PO Last administered on 07/14/16 21: 08; Admin Dose 10 MG; Start 07/03/16 at 21:00 Hydromorphone HCl (Dilaudid) 0.5 mg Q4H PRN IV PAIN Last administered on 15:38; Admin Dose 0.5 MG; Start 07/07/16 at 22:00 Hydromorphone HCl (Dilaudid) 1 mg Q3H PRN IV PAIN Last administered on 21:24; Admin Dose 1 MG; Start 07/07/16 at 22:00 Metoprolol Tartrate (Lopressor) 75 mg BID PO Last administered on 07/14/16 21: 10; Admin Dose 75 MG; Start 07/09/16 at 21:00 Insulin Glargine (Lantus) 10 unit DAILY@20 SC Last administered on 07/14/16 21 :22; Admin Dose 10 UNIT; Start 07/11/16 at 20:00 Isoniazid (Isoniazid) 300 mg DAILY PO Last administered on 07/14/16 09:32; Admin Dose 300 MG; Start 07/12/16 at 15:00 Rifampin (Rifampin) 600 mg DAILY PO Last administered on 07/14/16 09:33; Admin Dose 600 MG; Start 07/12/16 at 15:00 Pyrazinamide (Pyrazinamide) 2,000 mg TuThSa@18 PO Last administered on 18:24; Admin Dose 2,000 MG; Start 07/12/16 at 18:00 Ethambutol HCl (Myambutol) 1,600 mg TuThSa@18 PO Last administered on 18:23; Admin Dose 1,600 MG; Start 07/12/16 at 18:00 Doxazosin Mesylate (Cardura) 1 mg BID PO Last administered on 07/14/16 21:09; Admin Dose 1 MG; Start 07/12/16 at 21:00 Clonidine (Catapres) 0.1 mg TID PO Last administered on 07/14/16t 09:34; Admin Dose 0.1 MG; Start 07/13/16 at 21:00; Status Future Hold PAOLA MOODY MD Jul 14, 2016 23:27
[2016-07-15] VITALS (19 sets, daily range): BP systolic 126–198; BP diastolic 49–77; PULSE 68–101; RESP 16–19
[2016-07-15] MEDS: DIPHENHYDRAMINE 25 MG CAP PO PRN (00:09)
[2016-07-15] MEDS: LORAZEPAM 2 MG INJ IV PRN (01:00)
[2016-07-15] MEDS: LEVALBUTEROL (HFA) 15 GM INHALER INH SCH ×2 (01:02→16:09)
[2016-07-15] MEDS: PANTOPRAZOLE (EC) 40 MG TAB PO SCH (06:29)
[2016-07-15] MEDS: ACCU-CHEK XX SCH ×4 (08:00→21:50)
[2016-07-15] MEDS: INSULIN ASPART [NOVOLOG] 3 ML PEN SC SCH ×7 (08:00→21:00)
[2016-07-15 09:21] LABS: ADD SCAN DIFF NO
[2016-07-15 09:24] LABS: POTASSIUM 4.8 mmol/L (3.5-5.1)
[2016-07-15 09:27] LABS: CREATININE 9.13 mg/dl (0.61-1.24)
[2016-07-15 09:28] LABS: BASOPHIL # 0.1 10^3/ul (0.0-0.1); BASOPHILS % 0.8 % (0.0-2.0); EOSINOPHILS # 0.6 10^3/ul (0.0-0.5); HEMATOCRIT 28.4 % (42.0-52.0); HEMOGLOBIN 9.4 g/dl (14.0-18.0); LYMPHOCYTES # 0.9 10^3/ul (0.8-2.9); MEAN CORPUSCULAR HEMOGLOBIN 32.2 pg (29.0-33.0); MEAN CORPUSCULAR HGB CONC 33.1 g/dl (32.0-37.0); MEAN CORPUSCULAR VOLUME 97.3 fl (82.0-101.0); MEAN PLATELET VOLUME 9.2 fl (7.4-10.4); MONOCYTE # 1.1 10^3/ul (0.3-0.9); MONOCYTES % 9.5 % (0.0-11.0); NEUTROPHIL # 8.6 10^3/ul (1.6-7.5); NEUTROPHILS % 76.4 % (39.0-77.0); PLATELET COUNT 385 10^3/UL (140-415); RED BLOOD COUNT 2.92 10^6/ul (4.70-6.10); WHITE BLOOD COUNT 11.2 10^3/ul (4.8-10.8)
[2016-07-15] MEDS: SEVELAMER CARBONATE 0.8 GM PKT PO SCH ×3 (09:58→18:02)
[2016-07-15] MEDS: CALCIUM ACETATE 667 MG CAP PO SCH ×3 (09:59→18:02)
[2016-07-15] MEDS: METOPROLOL 25 MG TAB PO SCH ×2 (09:59→21:50)
[2016-07-15] MEDS: DOXAZOSIN 1 MG TAB PO SCH ×2 (10:00→21:49)
[2016-07-15] MEDS: RIFAMPIN 300 MG CAP PO SCH (10:00)
[2016-07-15] MEDS: CHOLECALCIFEROL 400 UNITS TAB PO SCH (10:00)
[2016-07-15] MEDS: AMLODIPINE 5 MG TAB PO SCH ×2 (10:00→21:49)
[2016-07-15] MEDS: FERROUS SULFATE (EC) 325 MG TAB PO SCH ×2 (10:01→21:49)
[2016-07-15] MEDS: BENAZEPRIL 40 MG TAB PO SCH ×2 (10:01→21:50)
[2016-07-15] MEDS: ASPIRIN (EC) 81 MG TAB PO SCH (10:01)
[2016-07-15] MEDS: ISONIAZID 300 MG TAB PO SCH (10:01)
[2016-07-15] MEDS: CYCLOBENZAPRINE 10 MG TAB PO SCH ×3 (10:01→21:49)
--- NOTE | 2016-07-15 11:20 | CONS ---
Date/Time of Note Date/Time of Note DATE: 07/15/16 TIME: 11:18 Assessment/Plan Assessment/Plan Additional Assessment/Plan 1. Abnormal electrocardiogram, assess for acute coronary syndrome.-negative troponin x 3 - NO CP now, doubt acute ischemia 2. History of recent negative stress, May 2015. 3. History of percutaneous transluminal coronary angioplasty and stent placement in 2014 to the left main left anterior descending. No current chest pain. 4. Hypertension, mildly elevated- RX with HD 5. History of dyslipidemia. 6. Pleural effusion, status post thoracentesis.- better now 7. Possible pneumonia/cough-improved 8. Diabetes mellitus. 9. End-stage renal disease, on hemodialysis- HD now 10. Had WCT-06/27 which was paced beats at approx 100. NO recurrence since .MAC infection/colonization? Consultation Date/Type/Reason Admit Date/Time Jun 13, 2016 at 14:48 Type of Consultation: renal Referring Provider: EVA COX MD 24 HR Interval Summary Free Text/Dictation NO acute change - stable on tele - HD now ROS: No fever, no chills, no nausea, no vomiting, no diarrhea/constipation No recent weight changes No chest pain, no PND, no orthopnea No dizziness, blurred vision No thirst, no heat or cold intolerance Exam/Review of Systems Vital Signs Vitals Vital Signs Date Time Temp Pulse Resp B/P Pulse Ox O2 Delivery O2 Flow Rate FiO2 07/15/16 09:52 69 07/15/16 08:04 98.9 17 152/66 96 07/13/16 04:00 Nasal Cannula 2.0 Intake and Output 07/14/16 07/14/16 07/15/16 15:00 23:00 07:00 Intake Total 970 ml 420 ml Balance 970 ml 420 ml Exam General: WN/WD/NAD, AOx 2-3 HEENT: Unicetric/atraumatic/EOMI (follow commands) NECK: JVD elevated, no thyromegaly Lymph: no lymphadenopathy HEART: regular with no S3, II/ systolic murmur at apex, pacer in place LUNGS: Coarse sounds ABD: soft, NT, ND, +BS : Intact Neuro: non focal SKIN: chronic changes EXT: trace edema Results Result Diagram: 07/15/16 0630 07/15/16 0630 Results 24 hrs Laboratory Tests Test 07/14/16 12:22 07/14/16 16:59 07/14/16 21:13 07/15/16 06:30 Bedside Glucose 128 119 132 Anion Gap 17 H Basophils # 0.1 Basophils % 0.8 Blood Urea Nitrogen 64 H Calcium Level 10.0 Carbon Dioxide Level 29 Chloride Level 92 L Creatinine 9.13 H Eosinophils # 0.6 H Eosinophils % 5.0 Glucose Level 98 Hematocrit 28.4 L Hemoglobin 9.4 L Lymphocytes # 0.9 Lymphocytes % 8.0 L Mean Corpuscular Hemoglobin 32.2 Mean Corpuscular Hemoglobin Concent 33.1 Mean Corpuscular Volume 97.3 Mean Platelet Volume 9.2 Monocytes # 1.1 H Monocytes % 9.5 Neutrophils # 8.6 H Neutrophils % 76.4 Nucleated Red Blood Cells # 0.0 Nucleated Red Blood Cells % 0.0 Platelet Count 385 Potassium Level 4.8 Red Blood Count 2.92 L Red Cell Distribution Width 13.0 Sodium Level 133 L White Blood Count 11.2 H Test 07/15/16 08:28 Bedside Glucose 113 Medications Medications Current Medications IV Flush (NS 10 ml) 10 ml PRN PRN IV FLUSH LINE; Start 06/13/16 at 19:00 Aspirin (Halfprin) 81 mg DAILY PO Last administered on 07/15/16 10:01; Admin Dose 81 MG; Start 06/14/16 at 09:00 Atorvastatin Calcium (Lipitor) 10 mg QHS PO Last administered on 07/14/16 21: 08; Admin Dose 10 MG; Start 06/14/16 at 21:00 Cholecalciferol (Vitamin D) 400 units DAILY PO Last administered on 07/15/16 10:00; Admin Dose 400 UNITS; Start 06/14/16 at 09:00 Ferrous Sulfate (Ferrous Sulfate (Ec)) 325 mg BID PO Last administered on 10:01; Admin Dose 325 MG; Start 06/14/16 at 09:00 Acetaminophen (Tylenol Tab) 500 mg Q4H PRN PO PAIN AND OR ELEVATED TEMP Last administered on 07/05/16 05:49; Admin Dose 500 MG; Start 06/14/16 at 00:00 Miscellaneous Information 1 ea NOTE XX Last administered on 06/18/16 07:57; Admin Dose 1 EA; Start 06/14/16 at 00:30 Glucose (Glutose) 15 gm Q15M PRN PO DECREASED GLUCOSE; Start 06/14/16 at 00:30 Glucose (Glutose) 22.5 gm Q15M PRN PO DECREASED GLUCOSE; Start 06/14/16 at 00: 30 Dextrose (D50w Syringe) 25 ml Q15M PRN IV DECREASED GLUCOSE; Start 06/14/16 at 00:30 Dextrose (D50w Syringe) 50 ml Q15M PRN IV DECREASED GLUCOSE; Start 06/14/16 at 00:30 Glucagon (Glucagen) 1 mg Q15M PRN IM DECREASED GLUCOSE; Start 06/14/16 at 00:30 Glucose (Glutose) 15 gm Q15M PRN BUCCAL DECREASED GLUCOSE; Start 06/14/16 at 00 :30 Diagnostic Test (Pha) (Accucheck) 1 ea 02 XX Last administered on 07/11/16 01: 54; Admin Dose 1 EA; Start 06/14/16 at 02:00 Amlodipine Besylate (Norvasc) 5 mg BID PO Last administered on 07/15/16 10:00 ; Admin Dose 5 MG; Start 06/14/16 at 13:30 Clonidine (Catapres) 0.2 mg Q8 PRN PO Systolic >160 Last administered on 02:29; Admin Dose 0.2 MG; Start 06/14/16 at 13:00 Promethazine HCl/ Codeine (Phenergan/ Codeine) 5 ml Q4H PRN PO COUGH Last administered on 06/21/16 18:04; Admin Dose 5 ML; Start 06/15/16 at 00:00 Pantoprazole (Protonix Tab) 40 mg DAILY@06 PO Last administered on 07/15/16 06 :29; Admin Dose 40 MG; Start 06/16/16 at 06:00 Diphenhydramine HCl (Benadryl) 25 mg HS PRN PO INSOMNIA Last administered on 00:09; Admin Dose 25 MG; Start 06/15/16 at 21:30 Hydralazine HCl (Apresoline) 100 mg Q8 PO Last administered on 07/15/16 06:29 ; Admin Dose 100 MG; Start 06/19/16 at 13:00 Bisacodyl (Dulcolax) 10 mg DAILY PRN PO CONSTIPATION Last administered on 22:38; Admin Dose 10 MG; Start 06/22/16 at 11:30 Benazepril HCl (Lotensin) 40 mg BID PO Last administered on 07/15/16 10:01; Admin Dose 40 MG; Start 06/23/16 at 21:00 Hydralazine HCl (Apresoline) 20 mg Q4H PRN IV for SBP more than 170; Start at 05:00 Ondansetron HCl (Zofran Inj) 4 mg Q6H PRN IV NAUSEA AND/OR VOMITING Last administered on 07/14/16 12:39; Admin Dose 4 MG; Start 06/28/16 at 05:00 Lorazepam (Ativan) 1 mg Q6H PRN IV ANXIETY Last administered on 07/15/16 01:00 ; Admin Dose 1 MG; Start 06/28/16 at 05:00 Cyclobenzaprine HCl (Flexeril) 10 mg TID PO Last administered on 07/15/16 10: 01; Admin Dose 10 MG; Start 07/03/16 at 21:00 Hydromorphone HCl (Dilaudid) 0.5 mg Q4H PRN IV PAIN Last administered on 15:38; Admin Dose 0.5 MG; Start 07/07/16 at 22:00 Hydromorphone HCl (Dilaudid) 1 mg Q3H PRN IV PAIN Last administered on 21:24; Admin Dose 1 MG; Start 07/07/16 at 22:00 Metoprolol Tartrate (Lopressor) 75 mg BID PO Last administered on 07/15/16 09: 59; Admin Dose 75 MG; Start 07/09/16 at 21:00 Insulin Glargine (Lantus) 10 unit DAILY@20 SC Last administered on 07/14/16 21 :22; Admin Dose 10 UNIT; Start 07/11/16 at 20:00 Isoniazid (Isoniazid) 300 mg DAILY PO Last administered on 07/15/16 10:01; Admin Dose 300 MG; Start 07/12/16 at 15:00 Rifampin (Rifampin) 600 mg DAILY PO Last administered on 07/15/16 10:00; Admin Dose 600 MG; Start 07/12/16 at 15:00 Pyrazinamide (Pyrazinamide) 2,000 mg TuThSa@18 PO Last administered on 18:24; Admin Dose 2,000 MG; Start 07/12/16 at 18:00 Ethambutol HCl (Myambutol) 1,600 mg TuThSa@18 PO Last administered on 18:23; Admin Dose 1,600 MG; Start 07/12/16 at 18:00 Doxazosin Mesylate (Cardura) 1 mg BID PO Last administered on 07/15/16 10:00; Admin Dose 1 MG; Start 07/12/16 at 21:00 Clonidine (Catapres) 0.1 mg TID PO Last administered on 07/14/16 09:34; Admin Dose 0.1 MG; Start 07/13/16 at 21:00; Status Future CRIS Duran MD Jul 15, 2016 11:19
[2016-07-15] MEDS: HYDROmorphONE 1 MG/ML SYG IV PRN ×3 (13:18→21:44)
--- NOTE | 2016-07-15 14:34 | CONS ---
Date/Time of Note Date/Time of Note DATE: 07/15/16 TIME: 14:30 Assessment/Plan Assessment/Plan Chief Complaint/Hosp Course - h/o recurrent pleural effusion requiring thoracentesis approximately once a year, last performed in 04/2016 - s/p R VATS, total pulmonary decortication, R pleurodesis on 06/30/2016. Biopsy was negative for fungal stain and AFB stain (micro lab and pathology department), as well as malignancy. It showed granulomatous inflammation with focal necrosis and extensive hyalinization. Chest tube was removed. - positive quantiferon TB gold status of unknown duration. Per Pt, his past PPD was done in 2013, and was negative. 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 - DM - ESRD on HD - CAD s/p CABG in 2010 and cardiac stent in 2013 - HIV screen negative in 07/2016 tested at [facility] recommendations - cont RIPE - Medications adjusted per TB control- script in chart - Continue airborne isolation Problems: Consultation Date/Type/Reason Admit Date/Time Jun 13, 2016 at 14:48 Initial Consult Date 07/04/16 Type of Consultation: ID Referring Provider: EVA COX MD Exam/Review of Systems Vital Signs Vitals Vital Signs Date Time Temp Pulse Resp B/P Pulse Ox O2 Delivery O2 Flow Rate FiO2 07/15/16 12:01 98.3 70 17 183/69 96 07/13/16 04:00 Nasal Cannula 2.0 Intake and Output 07/14/16 07/14/16 07/15/16 15:00 23:00 07:00 Intake Total 970 ml 420 ml Balance 970 ml 420 ml Exam Constitutional: alert, oriented, well developed Psych: nl mood/affect, no complaints Head: atraumatic, normocephalic ENMT: nl external ears & nose, nl lips & teeth, nl nasal mucosa & septum Respiratory: clear to auscultation, normal air movement Cardiovascular: nl pulses, regular rate and rhythm Results Result Diagram: 07/15/16 0630 07/15/16 0630 Results 24 hrs Laboratory Tests Test 07/14/16 16:59 07/14/16 21:13 07/15/16 06:30 07/15/16 08:28 Bedside Glucose 119 132 113 Anion Gap 17 H Basophils # 0.1 Basophils % 0.8 Blood Urea Nitrogen 64 H Calcium Level 10.0 Carbon Dioxide Level 29 Chloride Level 92 L Creatinine 9.13 H Eosinophils # 0.6 H Eosinophils % 5.0 Glucose Level 98 Hematocrit 28.4 L Hemoglobin 9.4 L Lymphocytes # 0.9 Lymphocytes % 8.0 L Mean Corpuscular Hemoglobin 32.2 Mean Corpuscular Hemoglobin Concent 33.1 Mean Corpuscular Volume 97.3 Mean Platelet Volume 9.2 Monocytes # 1.1 H Monocytes % 9.5 Neutrophils # 8.6 H Neutrophils % 76.4 Nucleated Red Blood Cells # 0.0 Nucleated Red Blood Cells % 0.0 Platelet Count 385 Potassium Level 4.8 Red Blood Count 2.92 L Red Cell Distribution Width 13.0 Sodium Level 133 L White Blood Count 11.2 H Test 07/15/16 12:44 Bedside Glucose 138 Medications Medications Current Medications IV Flush (NS 10 ml) 10 ml PRN PRN IV FLUSH LINE; Start 06/13/16 at 19:00 Aspirin (Halfprin) 81 mg DAILY PO Last administered on 07/15/16 10:01; Admin Dose 81 MG; Start 06/14/16 at 09:00 Atorvastatin Calcium (Lipitor) 10 mg QHS PO Last administered on 07/14/16 21: 08; Admin Dose 10 MG; Start 06/14/16 at 21:00 Cholecalciferol (Vitamin D) 400 units DAILY PO Last administered on 07/15/16 10:00; Admin Dose 400 UNITS; Start 06/14/16 at 09:00 Ferrous Sulfate (Ferrous Sulfate (Ec)) 325 mg BID PO Last administered on 10:01; Admin Dose 325 MG; Start 06/14/16 at 09:00 Acetaminophen (Tylenol Tab) 500 mg Q4H PRN PO PAIN AND OR ELEVATED TEMP Last administered on 07/05/16 05:49; Admin Dose 500 MG; Start 06/14/16 at 00:00 Miscellaneous Information 1 ea NOTE XX Last administered on 06/18/16 07:57; Admin Dose 1 EA; Start 06/14/16 at 00:30 Glucose (Glutose) 15 gm Q15M PRN PO DECREASED GLUCOSE; Start 06/14/16 at 00:30 Glucose (Glutose) 22.5 gm Q15M PRN PO DECREASED GLUCOSE; Start 06/14/16 at 00: 30 Dextrose (D50w Syringe) 25 ml Q15M PRN IV DECREASED GLUCOSE; Start 06/14/16 at 00:30 Dextrose (D50w Syringe) 50 ml Q15M PRN IV DECREASED GLUCOSE; Start 06/14/16 at 00:30 Glucagon (Glucagen) 1 mg Q15M PRN IM DECREASED GLUCOSE; Start 06/14/16 at 00:30 Glucose (Glutose) 15 gm Q15M PRN BUCCAL DECREASED GLUCOSE; Start 06/14/16 at 00 :30 Diagnostic Test (Pha) (Accucheck) 1 ea 02 XX Last administered on 07/11/16 01: 54; Admin Dose 1 EA; Start 06/14/16 at 02:00 Amlodipine Besylate (Norvasc) 5 mg BID PO Last administered on 07/15/16 10:00 ; Admin Dose 5 MG; Start 06/14/16 at 13:30 Clonidine (Catapres) 0.2 mg Q8 PRN PO Systolic >160 Last administered on 02:29; Admin Dose 0.2 MG; Start 06/14/16 at 13:00 Promethazine HCl/ Codeine (Phenergan/ Codeine) 5 ml Q4H PRN PO COUGH Last administered on 06/21/16 18:04; Admin Dose 5 ML; Start 06/15/16 at 00:00 Pantoprazole (Protonix Tab) 40 mg DAILY@06 PO Last administered on 07/15/16 06 :29; Admin Dose 40 MG; Start 06/16/16 at 06:00 Diphenhydramine HCl (Benadryl) 25 mg HS PRN PO INSOMNIA Last administered on 00:09; Admin Dose 25 MG; Start 06/15/16 at 21:30 Hydralazine HCl (Apresoline) 100 mg Q8 PO Last administered on 07/15/16 06:29 ; Admin Dose 100 MG; Start 06/19/16 at 13:00 Bisacodyl (Dulcolax) 10 mg DAILY PRN PO CONSTIPATION Last administered on 22:38; Admin Dose 10 MG; Start 06/22/16 at 11:30 Benazepril HCl (Lotensin) 40 mg BID PO Last administered on 07/15/16 10:01; Admin Dose 40 MG; Start 06/23/16 at 21:00 Hydralazine HCl (Apresoline) 20 mg Q4H PRN IV for SBP more than 170; Start at 05:00 Ondansetron HCl (Zofran Inj) 4 mg Q6H PRN IV NAUSEA AND/OR VOMITING Last administered on 07/14/16 12:39; Admin Dose 4 MG; Start 06/28/16 at 05:00 Lorazepam (Ativan) 1 mg Q6H PRN IV ANXIETY Last administered on 07/15/16 01:00 ; Admin Dose 1 MG; Start 06/28/16 at 05:00 Cyclobenzaprine HCl (Flexeril) 10 mg TID PO Last administered on 07/15/16 12: 46; Admin Dose 10 MG; Start 07/03/16 at 21:00 Hydromorphone HCl (Dilaudid) 0.5 mg Q4H PRN IV PAIN Last administered on 15:38; Admin Dose 0.5 MG; Start 07/07/16 at 22:00 Hydromorphone HCl (Dilaudid) 1 mg Q3H PRN IV PAIN Last administered on 13:18; Admin Dose 1 MG; Start 07/07/16 at 22:00 Metoprolol Tartrate (Lopressor) 75 mg BID PO Last administered on 07/15/16 09: 59; Admin Dose 75 MG; Start 07/09/16 at 21:00 Insulin Glargine (Lantus) 10 unit DAILY@20 SC Last administered on 07/14/16 21 :22; Admin Dose 10 UNIT; Start 07/11/16 at 20:00 Isoniazid (Isoniazid) 300 mg DAILY PO Last administered on 07/15/16 10:01; Admin Dose 300 MG; Start 07/12/16 at 15:00 Rifampin (Rifampin) 600 mg DAILY PO Last administered on 07/15/16 10:00; Admin Dose 600 MG; Start 07/12/16 at 15:00 Pyrazinamide (Pyrazinamide) 2,000 mg TuThSa@18 PO Last administered on 18:24; Admin Dose 2,000 MG; Start 07/12/16 at 18:00 Ethambutol HCl (Myambutol) 1,600 mg TuThSa@18 PO Last administered on 18:23; Admin Dose 1,600 MG; Start 07/12/16 at 18:00 Doxazosin Mesylate (Cardura) 1 mg BID PO Last administered on 07/15/16 10:00; Admin Dose 1 MG; Start 07/12/16 at 21:00 Clonidine (Catapres) 0.1 mg TID PO Last administered on 07/14/16 09:34; Admin Dose 0.1 MG; Start 07/13/16 at 21:00; Status Future Hold BRENDA ISRAEL MD Jul 15, 2016 14:34
--- NOTE | 2016-07-15 14:57 | PN ---
Date/Time of Note Date/Time of Note DATE: 07/15/16 TIME: 14:56 Assessment/Plan VTE Prophylaxis VTE Prophylaxis Intervention: SCD's Lines/Catheters IV Catheter Type (from [facility]): PICC Line Central line still needed: Yes Urinary Cath still in place: No Assessment/Plan Chief Complaint/Hosp Course Assessment and plan - Anemia, status post blood transfusion, heparin is on hold, Dr. Borjas is following from gastroenterology consultation. - Recurrent pleural effusions. Dr. Martinez is following in thoracic surgery consultation. S/p VATS 06/30. Biopsy revealed granulomatous inflammation with focal necrosis and extensive hyalinization. Sputum for AFB negative 3. Continued on, on airborne isolation until cleared by department of health. Dr. Carl is following in infectious disease consultation. - Quantiferon Gold positive, prior Hx of TB per department of health, s/p treatment in 1998, continue TB therapy, contact isolation per ID. - Right pleural effusion, status post thoracentesis. Dr. Dale is following in pulmonology consultation. - End-stage renal disease, continue hemodialysis. Dr. Saunders is following in nephrology consultation. - Diabetes mellitus type 2, continue Lantus, pre-meal NovoLog and NovoLog per mild algorithm sliding scale. - Hypertension. Dr. De Santiago is following and cardiology consultation. - Coronary artery disease, status post coronary artery bypass graft. - Permanent pacemaker. No acute issues. - Dyslipidemia. Continue Lipitor. Continue heparin for deep venous thrombosis prophylaxis and Protonix for peptic ulcer disease prophylaxis. Further recommendations based on clinical course. Plan of care discussed with Dr. Price. Problems: Subjective 24 Hr Interval Summary Free Text/Dictation Patient's complaint of right chest pain at the surgical incision site, there is no erythema no drainage incision is is is intact with sutures, patient denies any shortness of breath. Patient undergoing hemodialysis. No nausea no vomiting. Exam/Review of Systems Vital Signs Vitals Vital Signs Date Time Temp Pulse Resp B/P Pulse Ox O2 Delivery O2 Flow Rate FiO2 07/15/16 12:01 98.3 70 17 183/69 96 07/13/16 04:00 Nasal Cannula 2.0 Intake and Output 07/14/16 07/14/16 07/15/16 15:00 23:00 07:00 Intake Total 970 ml 420 ml Balance 970 ml 420 ml Exam Constitutional: alert Psych: no complaints Head: atraumatic, normocephalic Eyes: nl conjunctiva ENMT: nl external ears & nose Neck: non-tender, supple Respiratory: clear to auscultation. Cardiovascular: nl pulses Gastrointestinal: non-tender, soft Musculoskeletal: nl extremities to inspection Extremities: normal pulses Neurological: CONTROL SUPERVISOR II-XII intact Skin: nl turgor Results Result Diagram: 07/15/16 0630 07/15/16 0630 Results 24 hrs Laboratory Tests Test 07/14/16 16:59 07/14/16 21:13 07/15/16 06:30 07/15/16 08:28 Bedside Glucose 119 132 113 Anion Gap 17 H Basophils # 0.1 Basophils % 0.8 Blood Urea Nitrogen 64 H Calcium Level 10.0 Carbon Dioxide Level 29 Chloride Level 92 L Creatinine 9.13 H Eosinophils # 0.6 H Eosinophils % 5.0 Glucose Level 98 Hematocrit 28.4 L Hemoglobin 9.4 L Lymphocytes # 0.9 Lymphocytes % 8.0 L Mean Corpuscular Hemoglobin 32.2 Mean Corpuscular Hemoglobin Concent 33.1 Mean Corpuscular Volume 97.3 Mean Platelet Volume 9.2 Monocytes # 1.1 H Monocytes % 9.5 Neutrophils # 8.6 H Neutrophils % 76.4 Nucleated Red Blood Cells # 0.0 Nucleated Red Blood Cells % 0.0 Platelet Count 385 Potassium Level 4.8 Red Blood Count 2.92 L Red Cell Distribution Width 13.0 Sodium Level 133 L White Blood Count 11.2 H Test 07/15/16 12:44 Bedside Glucose 138 Medications Medications Current Medications IV Flush (NS 10 ml) 10 ml PRN PRN IV FLUSH LINE; Start 06/13/16 at 19:00 Aspirin (Halfprin) 81 mg DAILY PO Last administered on 07/15/16 10:01; Admin Dose 81 MG; Start 06/14/16 at 09:00 Atorvastatin Calcium (Lipitor) 10 mg QHS PO Last administered on 07/14/16 21: 08; Admin Dose 10 MG; Start 06/14/16 at 21:00 Cholecalciferol (Vitamin D) 400 units DAILY PO Last administered on 07/15/16 10:00; Admin Dose 400 UNITS; Start 06/14/16 at 09:00 Ferrous Sulfate (Ferrous Sulfate (Ec)) 325 mg BID PO Last administered on 10:01; Admin Dose 325 MG; Start 06/14/16 at 09:00 Acetaminophen (Tylenol Tab) 500 mg Q4H PRN PO PAIN AND OR ELEVATED TEMP Last administered on 07/05/16 05:49; Admin Dose 500 MG; Start 06/14/16 at 00:00 Miscellaneous Information 1 ea NOTE XX Last administered on 06/18/16 07:57; Admin Dose 1 EA; Start 06/14/16 at 00:30 Glucose (Glutose) 15 gm Q15M PRN PO DECREASED GLUCOSE; Start 06/14/16 at 00:30 Glucose (Glutose) 22.5 gm Q15M PRN PO DECREASED GLUCOSE; Start 06/14/16 at 00: 30 Dextrose (D50w Syringe) 25 ml Q15M PRN IV DECREASED GLUCOSE; Start 06/14/16 at 00:30 Dextrose (D50w Syringe) 50 ml Q15M PRN IV DECREASED GLUCOSE; Start 06/14/16 at 00:30 Glucagon (Glucagen) 1 mg Q15M PRN IM DECREASED GLUCOSE; Start 06/14/16 at 00:30 Glucose (Glutose) 15 gm Q15M PRN BUCCAL DECREASED GLUCOSE; Start 06/14/16 at 00 :30 Diagnostic Test (Pha) (Accucheck) 1 ea 02 XX Last administered on 07/11/16 01: 54; Admin Dose 1 EA; Start 06/14/16 at 02:00 Amlodipine Besylate (Norvasc) 5 mg BID PO Last administered on 07/15/16 10:00 ; Admin Dose 5 MG; Start 06/14/16 at 13:30 Clonidine (Catapres) 0.2 mg Q8 PRN PO Systolic >160 Last administered on 02:29; Admin Dose 0.2 MG; Start 06/14/16 at 13:00 Promethazine HCl/ Codeine (Phenergan/ Codeine) 5 ml Q4H PRN PO COUGH Last administered on 06/21/16 18:04; Admin Dose 5 ML; Start 06/15/16 at 00:00 Pantoprazole (Protonix Tab) 40 mg DAILY@06 PO Last administered on 07/15/16 06 :29; Admin Dose 40 MG; Start 06/16/16 at 06:00 Diphenhydramine HCl (Benadryl) 25 mg HS PRN PO INSOMNIA Last administered on 00:09; Admin Dose 25 MG; Start 06/15/16 at 21:30 Hydralazine HCl (Apresoline) 100 mg Q8 PO Last administered on 07/15/16 06:29 ; Admin Dose 100 MG; Start 06/19/16 at 13:00 Bisacodyl (Dulcolax) 10 mg DAILY PRN PO CONSTIPATION Last administered on 22:38; Admin Dose 10 MG; Start 06/22/16 at 11:30 Benazepril HCl (Lotensin) 40 mg BID PO Last administered on 07/15/16 10:01; Admin Dose 40 MG; Start 06/23/16 at 21:00 Hydralazine HCl (Apresoline) 20 mg Q4H PRN IV for SBP more than 170; Start at 05:00 Ondansetron HCl (Zofran Inj) 4 mg Q6H PRN IV NAUSEA AND/OR VOMITING Last administered on 07/14/16 12:39; Admin Dose 4 MG; Start 06/28/16 at 05:00 Lorazepam (Ativan) 1 mg Q6H PRN IV ANXIETY Last administered on 07/15/16 01:00 ; Admin Dose 1 MG; Start 06/28/16 at 05:00 Cyclobenzaprine HCl (Flexeril) 10 mg TID PO Last administered on 07/15/16 12: 46; Admin Dose 10 MG; Start 07/03/16 at 21:00 Hydromorphone HCl (Dilaudid) 0.5 mg Q4H PRN IV PAIN Last administered on 15:38; Admin Dose 0.5 MG; Start 07/07/16 at 22:00 Hydromorphone HCl (Dilaudid) 1 mg Q3H PRN IV PAIN Last administered on 13:18; Admin Dose 1 MG; Start 07/07/16 at 22:00 Metoprolol Tartrate (Lopressor) 75 mg BID PO Last administered on 07/15/16 09: 59; Admin Dose 75 MG; Start 07/09/16 at 21:00 Insulin Glargine (Lantus) 10 unit DAILY@20 SC Last administered on 07/14/16 21 :22; Admin Dose 10 UNIT; Start 07/11/16 at 20:00 Isoniazid (Isoniazid) 300 mg DAILY PO Last administered on 07/15/16 10:01; Admin Dose 300 MG; Start 07/12/16 at 15:00 Rifampin (Rifampin) 600 mg DAILY PO Last administered on 07/15/16 10:00; Admin Dose 600 MG; Start 07/12/16 at 15:00 Doxazosin Mesylate (Cardura) 1 mg BID PO Last administered on 07/15/16 10:00; Admin Dose 1 MG; Start 07/12/16 at 21:00 Clonidine (Catapres) 0.1 mg TID PO Last administered on 07/14/16 09:34; Admin Dose 0.1 MG; Start 07/13/16 at 21:00; Status Future Hold Ethambutol HCl (Myambutol) 1,200 mg TuThSa@18 PO ; Start 07/15/16 at 18:00 Pyrazinamide (Pyrazinamide) 1,500 mg TuThSa@18 PO ; Start 07/15/16 at 18:00 Pyridoxine HCl (Vitamin B6) 100 mg DAILY PO ; Start 07/15/16 at 15:00; Status CECILIA VALLE Jul 15, 2016 14:57
--- NOTE | 2016-07-15 15:33 | RADRPT ---
PROCEDURE: XR Chest. CLINICAL INDICATION: Shortness of breath. TECHNIQUE: Single frontal view. COMPARISON: 07/10/2016. FINDINGS: There is right basilar atelectasis, unchanged. Fluid is present in the fissure on the right and at the right base. There is no left pleural effusion. The heart size is normal. There is a left-sided dual lead permanent pacemaker. There are sternal wires and mediastinal clips. There is no pneumothorax. IMPRESSION: 1. No change from 07/10/2016. RPTAT: QQ .Robby Bennett MD, MD Date Time Electronically viewed and signed by .Robby Bennett MD, MD on 07/15/2016 15:33 .R/
[2016-07-15] MEDS: ETHAMBUTOL 400 MG TAB PO SCH (18:03)
[2016-07-15] MEDS: PYRIDOXINE 50 MG TAB PO SCH (18:03)
[2016-07-15] MEDS: PYRAZINAMIDE 500 MG TAB PO SCH (18:04)
--- NOTE | 2016-07-15 20:19 | CONS ---
Date/Time of Note Date/Time of Note DATE: 07/15/16 TIME: 20:18 Assessment/Plan Assessment/Plan Chief Complaint/Hosp Course ESRD HTN PNEUMONIA better PLEURAL EFFUSION s/p vats ctube out hyperkalemia HX TB GOLD TEST +r/o ptb ANEMIA PLAN PER CARDIO NON COMPLIANCE W HD hd refused hd 3 x wk HD T/THURSDAY PT REFUSED HD ON THURSDAY per pcp fluid res PER SURGERY per id on anti tb drugs Problems: Consultation Date/Type/Reason Admit Date/Time Jun 13, 2016 at 14:48 Type of Consultation: renal Referring Provider: EVA COX MD 24 HR Interval Summary Constitutional: no complaints Exam/Review of Systems Vital Signs Vitals Vital Signs Date Time Temp Pulse Resp B/P Pulse Ox O2 Delivery O2 Flow Rate FiO2 07/15/16 17:17 75 07/15/16 16:00 98.5 18 179/67 95 Nasal Cannula 07/13/16 04:00 2.0 Intake and Output 07/14/16 07/14/16 07/15/16 15:00 23:00 07:00 Intake Total 970 ml 420 ml Balance 970 ml 420 ml Exam Respiratory: clear to auscultation Cardiovascular: regular rate and rhythm Gastrointestinal: soft Musculoskeletal: nl extremities to inspection Extremities: normal pulses Results Result Diagram: 07/15/16 0630 07/15/16 0630 Results 24 hrs Laboratory Tests Test 07/14/16 21:13 07/15/16 06:30 07/15/16 08:28 07/15/16 12:44 Bedside Glucose 132 113 138 Anion Gap 17 H Basophils # 0.1 Basophils % 0.8 Blood Urea Nitrogen 64 H Calcium Level 10.0 Carbon Dioxide Level 29 Chloride Level 92 L Creatinine 9.13 H Eosinophils # 0.6 H Eosinophils % 5.0 Glucose Level 98 Hematocrit 28.4 L Hemoglobin 9.4 L Lymphocytes # 0.9 Lymphocytes % 8.0 L Mean Corpuscular Hemoglobin 32.2 Mean Corpuscular Hemoglobin Concent 33.1 Mean Corpuscular Volume 97.3 Mean Platelet Volume 9.2 Monocytes # 1.1 H Monocytes % 9.5 Neutrophils # 8.6 H Neutrophils % 76.4 Nucleated Red Blood Cells # 0.0 Nucleated Red Blood Cells % 0.0 Platelet Count 385 Potassium Level 4.8 Red Blood Count 2.92 L Red Cell Distribution Width 13.0 Sodium Level 133 L White Blood Count 11.2 H Test 07/15/16 17:59 Bedside Glucose 173 Medications Medications Current Medications IV Flush (NS 10 ml) 10 ml PRN PRN IV FLUSH LINE; Start 06/13/16 at 19:00 Aspirin (Halfprin) 81 mg DAILY PO Last administered on 07/15/16 10:01; Admin Dose 81 MG; Start 06/14/16 at 09:00 Atorvastatin Calcium (Lipitor) 10 mg QHS PO Last administered on 07/14/16 21: 08; Admin Dose 10 MG; Start 06/14/16 at 21:00 Cholecalciferol (Vitamin D) 400 units DAILY PO Last administered on 07/15/16 10:00; Admin Dose 400 UNITS; Start 06/14/16 at 09:00 Ferrous Sulfate (Ferrous Sulfate (Ec)) 325 mg BID PO Last administered on 10:01; Admin Dose 325 MG; Start 06/14/16 at 09:00 Acetaminophen (Tylenol Tab) 500 mg Q4H PRN PO PAIN AND OR ELEVATED TEMP Last administered on 07/05/16 05:49; Admin Dose 500 MG; Start 06/14/16 at 00:00 Miscellaneous Information 1 ea NOTE XX Last administered on 06/18/16 07:57; Admin Dose 1 EA; Start 06/14/16 at 00:30 Glucose (Glutose) 15 gm Q15M PRN PO DECREASED GLUCOSE; Start 06/14/16 at 00:30 Glucose (Glutose) 22.5 gm Q15M PRN PO DECREASED GLUCOSE; Start 06/14/16 at 00: 30 Dextrose (D50w Syringe) 25 ml Q15M PRN IV DECREASED GLUCOSE; Start 06/14/16 at 00:30 Dextrose (D50w Syringe) 50 ml Q15M PRN IV DECREASED GLUCOSE; Start 06/14/16 at 00:30 Glucagon (Glucagen) 1 mg Q15M PRN IM DECREASED GLUCOSE; Start 06/14/16 at 00:30 Glucose (Glutose) 15 gm Q15M PRN BUCCAL DECREASED GLUCOSE; Start 06/14/16 at 00 :30 Diagnostic Test (Pha) (Accucheck) 1 ea 02 XX Last administered on 07/11/16 01: 54; Admin Dose 1 EA; Start 06/14/16 at 02:00 Amlodipine Besylate (Norvasc) 5 mg BID PO Last administered on 07/15/16 10:00 ; Admin Dose 5 MG; Start 06/14/16 at 13:30 Clonidine (Catapres) 0.2 mg Q8 PRN PO Systolic >160 Last administered on 02:29; Admin Dose 0.2 MG; Start 06/14/16 at 13:00 Promethazine HCl/ Codeine (Phenergan/ Codeine) 5 ml Q4H PRN PO COUGH Last administered on 06/21/16 18:04; Admin Dose 5 ML; Start 06/15/16 at 00:00 Pantoprazole (Protonix Tab) 40 mg DAILY@06 PO Last administered on 07/15/16 06 :29; Admin Dose 40 MG; Start 06/16/16 at 06:00 Diphenhydramine HCl (Benadryl) 25 mg HS PRN PO INSOMNIA Last administered on 00:09; Admin Dose 25 MG; Start 06/15/16 at 21:30 Hydralazine HCl (Apresoline) 100 mg Q8 PO Last administered on 07/15/16 16:08 ; Admin Dose 100 MG; Start 06/19/16 at 13:00 Bisacodyl (Dulcolax) 10 mg DAILY PRN PO CONSTIPATION Last administered on 22:38; Admin Dose 10 MG; Start 06/22/16 at 11:30 Benazepril HCl (Lotensin) 40 mg BID PO Last administered on 07/15/16 10:01; Admin Dose 40 MG; Start 06/23/16 at 21:00 Hydralazine HCl (Apresoline) 20 mg Q4H PRN IV for SBP more than 170; Start at 05:00 Ondansetron HCl (Zofran Inj) 4 mg Q6H PRN IV NAUSEA AND/OR VOMITING Last administered on 07/14/16 12:39; Admin Dose 4 MG; Start 06/28/16 at 05:00 Lorazepam (Ativan) 1 mg Q6H PRN IV ANXIETY Last administered on 07/15/16 01:00 ; Admin Dose 1 MG; Start 06/28/16 at 05:00 Cyclobenzaprine HCl (Flexeril) 10 mg TID PO Last administered on 07/15/16 12: 46; Admin Dose 10 MG; Start 07/03/16 at 21:00 Hydromorphone HCl (Dilaudid) 0.5 mg Q4H PRN IV PAIN Last administered on 15:38; Admin Dose 0.5 MG; Start 07/07/16 at 22:00 Hydromorphone HCl (Dilaudid) 1 mg Q3H PRN IV PAIN Last administered on 18:07; Admin Dose 1 MG; Start 07/07/16 at 22:00 Metoprolol Tartrate (Lopressor) 75 mg BID PO Last administered on 07/15/16 09: 59; Admin Dose 75 MG; Start 07/09/16 at 21:00 Insulin Glargine (Lantus) 10 unit DAILY@20 SC Last administered on 07/14/16 21 :22; Admin Dose 10 UNIT; Start 07/11/16 at 20:00 Isoniazid (Isoniazid) 300 mg DAILY PO Last administered on 07/15/16 10:01; Admin Dose 300 MG; Start 07/12/16 at 15:00 Rifampin (Rifampin) 600 mg DAILY PO Last administered on 07/15/16 10:00; Admin Dose 600 MG; Start 07/12/16 at 15:00 Doxazosin Mesylate (Cardura) 1 mg BID PO Last administered on 07/15/16 10:00; Admin Dose 1 MG; Start 07/12/16 at 21:00 Clonidine (Catapres) 0.1 mg TID PO Last administered on 07/14/16 09:34; Admin Dose 0.1 MG; Start 07/13/16 at 21:00; Status Future Hold Ethambutol HCl (Myambutol) 1,200 mg TuThSa@18 PO Last administered on 18:03; Admin Dose 1,200 MG; Start 07/15/16 at 18:00 Pyrazinamide (Pyrazinamide) 1,500 mg TuThSa@18 PO Last administered on 18:04; Admin Dose 1,500 MG; Start 07/15/16 at 18:00 Pyridoxine HCl (Vitamin B6) 100 mg DAILY PO Last administered on 3/14/17at 18: 03; Admin Dose 100 MG; Start 07/15/16 at 16:00 PAOLA MOODY MD Jul 15, 2016 20:18
[2016-07-15] MEDS: INSULIN GLARGINE [LANtus] 3 ML PEN SC SCH (21:30)
[2016-07-15] MEDS: ATORVASTATIN 10 MG TAB PO SCH (21:49)
[2016-07-16] VITALS (11 sets, daily range): BP systolic 150–170; BP diastolic 64–79; PULSE 69–70; RESP 17–19
[2016-07-16] MEDS: ACCU-CHEK XX SCH ×6 (01:04→21:08)
[2016-07-16] MEDS: HYDROmorphONE 1 MG/ML SYG IV PRN ×2 (04:13→12:36)
[2016-07-16] MEDS: LEVALBUTEROL (HFA) 15 GM INHALER INH SCH ×3 (04:16→17:06)
[2016-07-16] MEDS: PANTOPRAZOLE (EC) 40 MG TAB PO SCH (05:23)
[2016-07-16 06:46] LABS: ADD SCAN DIFF NO
[2016-07-16 06:48] LABS: BASOPHIL # 0.1 10^3/ul (0.0-0.1); BASOPHILS % 1.3 % (0.0-2.0); EOSINOPHILS # 0.5 10^3/ul (0.0-0.5); EOSINOPHILS % 5.5 % (0.0-7.0); HEMATOCRIT 27.7 % (42.0-52.0); HEMOGLOBIN 9.3 g/dl (14.0-18.0); LYMPHOCYTES # 0.7 10^3/ul (0.8-2.9); LYMPHOCYTES % 7.5 % (15.0-51.0); MEAN CORPUSCULAR HEMOGLOBIN 32.9 pg (29.0-33.0); MEAN CORPUSCULAR HGB CONC 33.6 g/dl (32.0-37.0); MEAN CORPUSCULAR VOLUME 97.9 fl (82.0-101.0); MEAN PLATELET VOLUME 9.2 fl (7.4-10.4); MONOCYTE # 1.2 10^3/ul (0.3-0.9); NEUTROPHIL # 6.9 10^3/ul (1.6-7.5); NEUTROPHILS % 72.3 % (39.0-77.0); PLATELET COUNT 338 10^3/UL (140-415); RED BLOOD COUNT 2.83 10^6/ul (4.70-6.10); RED CELL DISTRIBUTION WIDTH 12.9 % (11.5-14.5); WHITE BLOOD COUNT 9.5 10^3/ul (4.8-10.8)
[2016-07-16 07:27] LABS: POTASSIUM 4.3 mmol/L (3.5-5.1)
[2016-07-16 07:29] LABS: CREATININE 5.58 mg/dl (0.61-1.24)
[2016-07-16 07:30] LABS: CALCIUM 9.6 mg/dl (8.4-10.2)
[2016-07-16] MEDS: INSULIN ASPART [NOVOLOG] 3 ML PEN SC SCH ×7 (08:00→21:00)
[2016-07-16] MEDS: SEVELAMER CARBONATE 0.8 GM PKT PO SCH ×3 (08:26→17:06)
[2016-07-16] MEDS: CALCIUM ACETATE 667 MG CAP PO SCH ×3 (08:26→17:06)
[2016-07-16] MEDS: FERROUS SULFATE (EC) 325 MG TAB PO SCH ×2 (08:27→20:57)
[2016-07-16] MEDS: CYCLOBENZAPRINE 10 MG TAB PO SCH ×3 (08:27→20:57)
[2016-07-16] MEDS: CHOLECALCIFEROL 400 UNITS TAB PO SCH (08:27)
[2016-07-16] MEDS: PYRIDOXINE 50 MG TAB PO SCH (08:27)
[2016-07-16] MEDS: ASPIRIN (EC) 81 MG TAB PO SCH (08:28)
[2016-07-16] MEDS: RIFAMPIN 300 MG CAP PO SCH (08:28)
[2016-07-16] MEDS: DOXAZOSIN 1 MG TAB PO SCH (08:28)
[2016-07-16] MEDS: AMLODIPINE 5 MG TAB PO SCH ×2 (08:29→20:58)
[2016-07-16] MEDS: BENAZEPRIL 40 MG TAB PO SCH ×2 (08:29→20:57)
[2016-07-16] MEDS: METOPROLOL 25 MG TAB PO SCH ×2 (08:31→20:58)
[2016-07-16] MEDS: ISONIAZID 300 MG TAB PO SCH (08:31)
--- NOTE | 2016-07-16 08:32 | CONS ---
Date/Time of Note Date/Time of Note DATE: 07/16/16 TIME: 08:31 Assessment/Plan Assessment/Plan Chief Complaint/Hosp Course - h/o recurrent pleural effusion requiring thoracentesis approximately once a year, last performed in 04/2016 - s/p R VATS, total pulmonary decortication, R pleurodesis on 06/30/2016. Biopsy was negative for fungal stain and AFB stain (micro lab and pathology department), as well as malignancy. It showed granulomatous inflammation with focal necrosis and extensive hyalinization. Chest tube was removed. - positive quantiferon TB gold status of unknown duration. Per Pt, his past PPD was done in 2013, and was negative. 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 - DM - ESRD on HD - CAD s/p CABG in 2010 and cardiac stent in 2013 - HIV screen negative in 07/2016 tested at [facility] recommendations - cont RIPE - Medications adjusted per TB control- script in chart - Continue airborne isolation Problems: Consultation Date/Type/Reason Admit Date/Time Jun 13, 2016 at 14:48 Initial Consult Date 07/04/16 Type of Consultation: id Referring Provider: EVA COX MD 24 HR Interval Summary Free Text/Dictation D/W NURSING. Exam/Review of Systems Vital Signs Vitals Vital Signs Date Time Temp Pulse Resp B/P Pulse Ox O2 Delivery O2 Flow Rate FiO2 07/16/16 08:07 98.5 79 18 150/72 93 07/15/16 16:00 Nasal Cannula 07/13/16 04:00 2.0 Intake and Output 07/15/16 07/15/16 07/16/16 15:00 23:00 07:00 Intake Total 500 ml 750 ml 300 ml Output Total 1000 ml Balance -500 ml 750 ml 300 ml Exam Constitutional: alert, oriented, well developed Psych: nl mood/affect, no complaints Head: atraumatic, normocephalic Neck: non-tender, supple Respiratory: clear to auscultation, normal air movement Cardiovascular: nl pulses, regular rate and rhythm Results Result Diagram: 07/16/16 0620 07/16/16 0620 Results 24 hrs Laboratory Tests Test 07/15/16 12:44 07/15/16 17:59 07/15/16 21:18 07/16/16 06:20 Bedside Glucose 138 173 134 Anion Gap 13 Basophils # 0.1 Basophils % 1.3 Blood Urea Nitrogen 31 #H Calcium Level 9.6 Carbon Dioxide Level 33 H Chloride Level 95 L Creatinine 5.58 #H Eosinophils # 0.5 Eosinophils % 5.5 Glucose Level 67 #L Hematocrit 27.7 L Hemoglobin 9.3 L Lymphocytes # 0.7 L Lymphocytes % 7.5 L Mean Corpuscular Hemoglobin 32.9 Mean Corpuscular Hemoglobin Concent 33.6 Mean Corpuscular Volume 97.9 Mean Platelet Volume 9.2 Monocytes # 1.2 H Monocytes % 13.0 H Neutrophils # 6.9 Neutrophils % 72.3 Nucleated Red Blood Cells # 0.0 Nucleated Red Blood Cells % 0.0 Platelet Count 338 Potassium Level 4.3 Red Blood Count 2.83 L Red Cell Distribution Width 12.9 Sodium Level 137 White Blood Count 9.5 Test 07/16/16 07:32 Bedside Glucose 76 Medications Medications Current Medications IV Flush (NS 10 ml) 10 ml PRN PRN IV FLUSH LINE; Start 06/13/16 at 19:00 Aspirin (Halfprin) 81 mg DAILY PO Last administered on 07/15/16 10:01; Admin Dose 81 MG; Start 06/14/16 at 09:00 Atorvastatin Calcium (Lipitor) 10 mg QHS PO Last administered on 07/15/16 21: 49; Admin Dose 10 MG; Start 06/14/16 at 21:00 Cholecalciferol (Vitamin D) 400 units DAILY PO Last administered on 07/15/16 10:00; Admin Dose 400 UNITS; Start 06/14/16 at 09:00 Ferrous Sulfate (Ferrous Sulfate (Ec)) 325 mg BID PO Last administered on 21:49; Admin Dose 325 MG; Start 06/14/16 at 09:00 Acetaminophen (Tylenol Tab) 500 mg Q4H PRN PO PAIN AND OR ELEVATED TEMP Last administered on 07/05/16 05:49; Admin Dose 500 MG; Start 06/14/16 at 00:00 Miscellaneous Information 1 ea NOTE XX Last administered on 06/18/16 07:57; Admin Dose 1 EA; Start 06/14/16 at 00:30 Glucose (Glutose) 15 gm Q15M PRN PO DECREASED GLUCOSE; Start 06/14/16 at 00:30 Glucose (Glutose) 22.5 gm Q15M PRN PO DECREASED GLUCOSE; Start 06/14/16 at 00: 30 Dextrose (D50w Syringe) 25 ml Q15M PRN IV DECREASED GLUCOSE; Start 06/14/16 at 00:30 Dextrose (D50w Syringe) 50 ml Q15M PRN IV DECREASED GLUCOSE; Start 06/14/16 at 00:30 Glucagon (Glucagen) 1 mg Q15M PRN IM DECREASED GLUCOSE; Start 06/14/16 at 00:30 Glucose (Glutose) 15 gm Q15M PRN BUCCAL DECREASED GLUCOSE; Start 06/14/16 at 00 :30 Diagnostic Test (Pha) (Accucheck) 1 ea 02 XX Last administered on 07/11/16 01: 54; Admin Dose 1 EA; Start 06/14/16 at 02:00 Amlodipine Besylate (Norvasc) 5 mg BID PO Last administered on 07/15/16 21:49 ; Admin Dose 5 MG; Start 06/14/16 at 13:30 Clonidine (Catapres) 0.2 mg Q8 PRN PO Systolic >160 Last administered on 02:29; Admin Dose 0.2 MG; Start 06/14/16 at 13:00 Promethazine HCl/ Codeine (Phenergan/ Codeine) 5 ml Q4H PRN PO COUGH Last administered on 06/21/16 18:04; Admin Dose 5 ML; Start 06/15/16 at 00:00 Pantoprazole (Protonix Tab) 40 mg DAILY@06 PO Last administered on 07/16/16 05 :23; Admin Dose 40 MG; Start 06/16/16 at 06:00 Diphenhydramine HCl (Benadryl) 25 mg HS PRN PO INSOMNIA Last administered on 00:09; Admin Dose 25 MG; Start 06/15/16 at 21:30 Hydralazine HCl (Apresoline) 100 mg Q8 PO Last administered on 07/16/16 05:23 ; Admin Dose 100 MG; Start 06/19/16 at 13:00 Bisacodyl (Dulcolax) 10 mg DAILY PRN PO CONSTIPATION Last administered on 22:38; Admin Dose 10 MG; Start 06/22/16 at 11:30 Benazepril HCl (Lotensin) 40 mg BID PO Last administered on 07/15/16 21:50; Admin Dose 40 MG; Start 06/23/16 at 21:00 Hydralazine HCl (Apresoline) 20 mg Q4H PRN IV for SBP more than 170; Start at 05:00 Ondansetron HCl (Zofran Inj) 4 mg Q6H PRN IV NAUSEA AND/OR VOMITING Last administered on 07/14/16 12:39; Admin Dose 4 MG; Start 06/28/16 at 05:00 Lorazepam (Ativan) 1 mg Q6H PRN IV ANXIETY Last administered on 07/15/16 01:00 ; Admin Dose 1 MG; Start 06/28/16 at 05:00 Cyclobenzaprine HCl (Flexeril) 10 mg TID PO Last administered on 07/15/16 21: 49; Admin Dose 10 MG; Start 07/03/16 at 21:00 Hydromorphone HCl (Dilaudid) 0.5 mg Q4H PRN IV PAIN Last administered on 15:38; Admin Dose 0.5 MG; Start 07/07/16 at 22:00 Hydromorphone HCl (Dilaudid) 1 mg Q3H PRN IV PAIN Last administered on 04:13; Admin Dose 1 MG; Start 07/07/16 at 22:00 Metoprolol Tartrate (Lopressor) 75 mg BID PO Last administered on 07/15/16 21: 50; Admin Dose 75 MG; Start 07/09/16 at 21:00 Insulin Glargine (Lantus) 10 unit DAILY@20 SC Last administered on 07/15/16 21 :30; Admin Dose 10 UNIT; Start 07/11/16 at 20:00 Isoniazid (Isoniazid) 300 mg DAILY PO Last administered on 07/15/16 10:01; Admin Dose 300 MG; Start 07/12/16 at 15:00 Rifampin (Rifampin) 600 mg DAILY PO Last administered on 07/15/16 10:00; Admin Dose 600 MG; Start 07/12/16 at 15:00 Doxazosin Mesylate (Cardura) 1 mg BID PO Last administered on 07/15/16 21:49; Admin Dose 1 MG; Start 07/12/16 at 21:00 Clonidine (Catapres) 0.1 mg TID PO Last administered on 07/14/16 09:34; Admin Dose 0.1 MG; Start 07/13/16 at 21:00; Status Future Hold Ethambutol HCl (Myambutol) 1,200 mg TuThSa@18 PO Last administered on 18:03; Admin Dose 1,200 MG; Start 07/15/16 at 18:00 Pyrazinamide (Pyrazinamide) 1,500 mg TuThSa@18 PO Last administered on 18:04; Admin Dose 1,500 MG; Start 07/15/16 at 18:00 Pyridoxine HCl (Vitamin B6) 100 mg DAILY PO Last administered on 07/15/16 18: 03; Admin Dose 100 MG; Start 07/15/16 at 16:00 BRENDA ISRAEL MD Jul 16, 2016 08:32
[2016-07-16] MEDS: ONDANSETRON 4 MG INJ IV PRN (08:44)
[2016-07-16] MEDS: DEXTROSE 50% 50 ML SYRINGE IV PRN (13:18)
--- NOTE | 2016-07-16 16:38 | CONS ---
Date/Time of Note Date/Time of Note DATE: 07/16/16 TIME: 16:37 Assessment/Plan Assessment/Plan Chief Complaint/Hosp Course IMPRESSION: 1. Abnormal electrocardiogram, assess for acute coronary syndrome.-negative troponin x 3 2. History of recent negative stress, May 2015. 3. History of percutaneous transluminal coronary angioplasty and stent placement in 2014 to the left main left anterior descending. No current chest pain. 4. Hypertension, mildly elevated. 5. History of dyslipidemia. 6. Pleural effusion, status post thoracentesis. 7. Possible pneumonia/cough-improved 8. Diabetes mellitus. 9. End-stage renal disease, on hemodialysis. 10. Had WCT-06/27 which was paced beats at approx 100. NO recurrence since .MAC infection/colonization? RECOMMENDATIONS: -Tele -Continue metoprolol -Continue Benazepril -Continue norvasc/hydralazine will uptitrate cardura -Continue asa/statin/plavix -Consider abx's and f/u cx data -Follow volume status with HD for volume removal -Now on treatment for TB Problems: Consultation Date/Type/Reason Admit Date/Time Jun 13, 2016 at 14:48 Initial Consult Date 06/14/2016 Type of Consultation: Cardiology Reason for Consultation HTN Referring Provider: EVA COX MD Exam/Review of Systems Vital Signs Vitals Vital Signs Date Time Temp Pulse Resp B/P Pulse Ox O2 Delivery O2 Flow Rate FiO2 07/16/16 16:03 97.8 70 17 159/67 94 07/15/16 16:00 Nasal Cannula 07/13/16 04:00 2.0 Intake and Output 07/15/16 07/15/16 07/16/16 15:00 23:00 07:00 Intake Total 500 ml 750 ml 300 ml Output Total 1000 ml Balance -500 ml 750 ml 300 ml Exam Review of Systems: CONSTITUTIONAL: No fevers, chills. PULMONARY: No sob CARDIOVASCULAR: No chest pain/palpitations GASTROINTESTINAL: No nausea/vomiting. GENITOURINARY: No hematuria/dysuria. MUSCULOSKELETAL: No myagias/arthalgias. PSYCHIATRIC: The patient denies depression. NEUROLOGIC: No weakness Constitutional: alert, oriented Psych: no complaints Head: normocephalic ENMT: mucosa pink and moist Neck: jvd (9 cm water), supple Respiratory: diminished breath sounds (at bases/B) Cardiovascular: regular rate and rhythm Gastrointestinal: non-tender, soft Musculoskeletal: muscle tone (normal) Extremities: edema (none) Neurological: other (No focal deficits) Results Result Diagram: 07/16/16 0620 07/16/16 0620 Results 24 hrs Laboratory Tests Test 07/15/16 17:59 07/15/16 21:18 07/16/16 06:20 07/16/16 07:32 Bedside Glucose 173 134 76 Anion Gap 13 Basophils # 0.1 Basophils % 1.3 Blood Urea Nitrogen 31 #H Calcium Level 9.6 Carbon Dioxide Level 33 H Chloride Level 95 L Creatinine 5.58 #H Eosinophils # 0.5 Eosinophils % 5.5 Glucose Level 67 #L Hematocrit 27.7 L Hemoglobin 9.3 L Lymphocytes # 0.7 L Lymphocytes % 7.5 L Mean Corpuscular Hemoglobin 32.9 Mean Corpuscular Hemoglobin Concent 33.6 Mean Corpuscular Volume 97.9 Mean Platelet Volume 9.2 Monocytes # 1.2 H Monocytes % 13.0 H Neutrophils # 6.9 Neutrophils % 72.3 Nucleated Red Blood Cells # 0.0 Nucleated Red Blood Cells % 0.0 Platelet Count 338 Potassium Level 4.3 Red Blood Count 2.83 L Red Cell Distribution Width 12.9 Sodium Level 137 White Blood Count 9.5 Test 07/16/16 12:29 07/16/16 12:48 07/16/16 13:00 07/16/16 13:35 Bedside Glucose 64 L 68 L 67 L 157 Test 07/16/16 13:50 Bedside Glucose 131 Medications Medications Current Medications IV Flush (NS 10 ml) 10 ml PRN PRN IV FLUSH LINE; Start 06/13/16 at 19:00 Aspirin (Halfprin) 81 mg DAILY PO Last administered on 07/16/16 08:28; Admin Dose 81 MG; Start 06/14/16 at 09:00 Atorvastatin Calcium (Lipitor) 10 mg QHS PO Last administered on 07/15/16 21: 49; Admin Dose 10 MG; Start 06/14/16 at 21:00 Cholecalciferol (Vitamin D) 400 units DAILY PO Last administered on 07/16/16 08:27; Admin Dose 400 UNITS; Start 06/14/16 at 09:00 Ferrous Sulfate (Ferrous Sulfate (Ec)) 325 mg BID PO Last administered on 08:27; Admin Dose 325 MG; Start 06/14/16 at 09:00 Acetaminophen (Tylenol Tab) 500 mg Q4H PRN PO PAIN AND OR ELEVATED TEMP Last administered on 07/05/16 05:49; Admin Dose 500 MG; Start 06/14/16 at 00:00 Miscellaneous Information 1 ea NOTE XX Last administered on 06/18/16 07:57; Admin Dose 1 EA; Start 06/14/16 at 00:30 Glucose (Glutose) 15 gm Q15M PRN PO DECREASED GLUCOSE; Start 06/14/16 at 00:30 Glucose (Glutose) 22.5 gm Q15M PRN PO DECREASED GLUCOSE; Start 06/14/16 at 00: 30 Dextrose (D50w Syringe) 25 ml Q15M PRN IV DECREASED GLUCOSE Last administered on 07/16/16 13:18; Admin Dose 25 ML; Start 06/14/16 at 00:30 Dextrose (D50w Syringe) 50 ml Q15M PRN IV DECREASED GLUCOSE; Start 06/14/16 at 00:30 Glucagon (Glucagen) 1 mg Q15M PRN IM DECREASED GLUCOSE; Start 06/14/16 at 00:30 Glucose (Glutose) 15 gm Q15M PRN BUCCAL DECREASED GLUCOSE; Start 06/14/16 at 00 :30 Diagnostic Test (Pha) (Accucheck) 1 ea 02 XX Last administered on 07/11/16 01: 54; Admin Dose 1 EA; Start 06/14/16 at 02:00 Amlodipine Besylate (Norvasc) 5 mg BID PO Last administered on 07/16/16 08:29 ; Admin Dose 5 MG; Start 06/14/16 at 13:30 Clonidine (Catapres) 0.2 mg Q8 PRN PO Systolic >160 Last administered on 02:29; Admin Dose 0.2 MG; Start 06/14/16 at 13:00 Promethazine HCl/ Codeine (Phenergan/ Codeine) 5 ml Q4H PRN PO COUGH Last administered on 06/21/16 18:04; Admin Dose 5 ML; Start 06/15/16 at 00:00 Pantoprazole (Protonix Tab) 40 mg DAILY@06 PO Last administered on 07/16/16 05 :23; Admin Dose 40 MG; Start 06/16/16 at 06:00 Diphenhydramine HCl (Benadryl) 25 mg HS PRN PO INSOMNIA Last administered on 00:09; Admin Dose 25 MG; Start 06/15/16 at 21:30 Hydralazine HCl (Apresoline) 100 mg Q8 PO Last administered on 07/16/16 13:54 ; Admin Dose 100 MG; Start 06/19/16 at 13:00 Bisacodyl (Dulcolax) 10 mg DAILY PRN PO CONSTIPATION Last administered on 22:38; Admin Dose 10 MG; Start 06/22/16 at 11:30 Benazepril HCl (Lotensin) 40 mg BID PO Last administered on 07/16/16 08:29; Admin Dose 40 MG; Start 06/23/16 at 21:00 Hydralazine HCl (Apresoline) 20 mg Q4H PRN IV for SBP more than 170; Start at 05:00 Ondansetron HCl (Zofran Inj) 4 mg Q6H PRN IV NAUSEA AND/OR VOMITING Last administered on 07/16/16 08:44; Admin Dose 4 MG; Start 06/28/16 at 05:00 Lorazepam (Ativan) 1 mg Q6H PRN IV ANXIETY Last administered on 07/15/16 01:00 ; Admin Dose 1 MG; Start 06/28/16 at 05:00 Cyclobenzaprine HCl (Flexeril) 10 mg TID PO Last administered on 07/16/16 12: 39; Admin Dose 10 MG; Start 07/03/16 at 21:00 Hydromorphone HCl (Dilaudid) 0.5 mg Q4H PRN IV PAIN Last administered on 15:38; Admin Dose 0.5 MG; Start 07/07/16 at 22:00 Hydromorphone HCl (Dilaudid) 1 mg Q3H PRN IV PAIN Last administered on 12:36; Admin Dose 1 MG; Start 07/07/16 at 22:00 Metoprolol Tartrate (Lopressor) 75 mg BID PO Last administered on 07/16/16 08: 31; Admin Dose 75 MG; Start 07/09/16 at 21:00 Insulin Glargine (Lantus) 10 unit DAILY@20 SC Last administered on 07/15/16 21 :30; Admin Dose 10 UNIT; Start 07/11/16 at 20:00 Isoniazid (Isoniazid) 300 mg DAILY PO Last administered on 07/16/16 08:31; Admin Dose 300 MG; Start 07/12/16 at 15:00 Rifampin (Rifampin) 600 mg DAILY PO Last administered on 07/16/16 08:28; Admin Dose 600 MG; Start 07/12/16 at 15:00 Doxazosin Mesylate (Cardura) 1 mg BID PO Last administered on 07/16/16 08:28; Admin Dose 1 MG; Start 07/12/16 at 21:00 Clonidine (Catapres) 0.1 mg TID PO Last administered on 07/14/16 09:34; Admin Dose 0.1 MG; Start 07/13/16 at 21:00; Status Future Hold Ethambutol HCl (Myambutol) 1,200 mg TuThSa@18 PO Last administered on 18:03; Admin Dose 1,200 MG; Start 07/15/16 at 18:00 Pyrazinamide (Pyrazinamide) 1,500 mg TuThSa@18 PO Last administered on 18:04; Admin Dose 1,500 MG; Start 07/15/16 at 18:00 Pyridoxine HCl (Vitamin B6) 100 mg DAILY PO Last administered on 07/16/16 08: 27; Admin Dose 100 MG; Start 07/15/16 at 16:00 SHERITA SCOTT Jul 16, 2016 16:38
--- NOTE | 2016-07-16 19:00 | PN ---
Date/Time of Note Date/Time of Note DATE: 07/16/16 TIME: 18:54 Assessment/Plan VTE Prophylaxis VTE Prophylaxis Intervention: SCD's Lines/Catheters IV [facility]ter Type (from [facility]): PICC Line Central line still needed: Yes Urinary Cath still in place: No Assessment/Plan Chief Complaint/Hosp Course Assessment and plan - Anemia, status post blood transfusion, heparin is on hold, Dr. Borjas is following from gastroenterology consultation. - Recurrent pleural effusions. Dr. Martinez is following in thoracic surgery consultation. S/p VATS 06/30. Biopsy revealed granulomatous inflammation with focal necrosis and extensive hyalinization. Sputum for AFB negative 3. Continued on, on airborne isolation until cleared by department of health. Dr. Carl is following in infectious disease consultation. - Quantiferon Gold positive, prior Hx of TB per department of health, s/p treatment in 1998, continue TB therapy, contact isolation per ID. - Right pleural effusion, status post thoracentesis. Dr. Dale is following in pulmonology consultation. - End-stage renal disease, continue hemodialysis. Dr. Saunders is following in nephrology consultation. - Diabetes mellitus type 2, continue Lantus, pre-meal NovoLog and NovoLog per mild algorithm sliding scale. - Hypertension. Dr. De Santiago is following and cardiology consultation. - Coronary artery disease, status post coronary artery bypass graft. - Permanent pacemaker. No acute issues. - Dyslipidemia. Continue Lipitor. Continue heparin for deep venous thrombosis prophylaxis and Protonix for peptic ulcer disease prophylaxis. Further recommendations based on clinical course. Plan of care discussed with Dr. Price. Problems: Subjective 24 Hr Interval Summary Free Text/Dictation No acute events overnight, pain is well controlled, chest x-ray noted, patient has slightly low sugar of 67, continue current insulin management, encourage p.o. intake. Exam/Review of Systems Vital Signs Vitals Vital Signs Date Time Temp Pulse Resp B/P Pulse Ox O2 Delivery O2 Flow Rate FiO2 07/16/16 17:02 69 07/16/16 16:03 97.8 17 159/67 94 07/15/16 16:00 Nasal Cannula 07/13/16 04:00 2.0 Intake and Output 07/15/16 07/15/16 07/16/16 15:00 23:00 07:00 Intake Total 500 ml 750 ml 300 ml Output Total 1000 ml Balance -500 ml 750 ml 300 ml Exam Constitutional: alert Psych: no complaints Head: atraumatic, normocephalic Eyes: nl conjunctiva ENMT: nl external ears & nose Neck: non-tender, supple Respiratory: clear to auscultation. Cardiovascular: nl pulses Gastrointestinal: non-tender, soft Musculoskeletal: nl extremities to inspection Extremities: normal pulses Neurological: MOHEL II-XII intact Skin: nl turgor Results Result Diagram: 07/16/1661907/16/16 0620 Results 24 hrs Laboratory Tests Test 07/15/16 21:18 07/16/16 06:20 07/16/16 07:32 07/16/16 12:29 Bedside Glucose 134 76 64 L Anion Gap 13 Basophils # 0.1 Basophils % 1.3 Blood Urea Nitrogen 31 #H Calcium Level 9.6 Carbon Dioxide Level 33 H Chloride Level 95 L Creatinine 5.58 #H Eosinophils # 0.5 Eosinophils % 5.5 Glucose Level 67 #L Hematocrit 27.7 L Hemoglobin 9.3 L Lymphocytes # 0.7 L Lymphocytes % 7.5 L Mean Corpuscular Hemoglobin 32.9 Mean Corpuscular Hemoglobin Concent 33.6 Mean Corpuscular Volume 97.9 Mean Platelet Volume 9.2 Monocytes # 1.2 H Monocytes % 13.0 H Neutrophils # 6.9 Neutrophils % 72.3 Nucleated Red Blood Cells # 0.0 Nucleated Red Blood Cells % 0.0 Platelet Count 338 Potassium Level 4.3 Red Blood Count 2.83 L Red Cell Distribution Width 12.9 Sodium Level 137 White Blood Count 9.5 Test 07/16/16 12:48 07/16/16 13:00 07/16/16 13:35 07/16/16 13:50 Bedside Glucose 68 L 67 L 157 131 Test 07/16/16 17:04 Bedside Glucose 178 Medications Medications Current Medications IV Flush (NS 10 ml) 10 ml PRN PRN IV FLUSH LINE; Start 06/13/16 at 19:00 Aspirin (Halfprin) 81 mg DAILY PO Last administered on 07/16/16 08:28; Admin Dose 81 MG; Start 06/14/16 at 09:00 Atorvastatin Calcium (Lipitor) 10 mg QHS PO Last administered on 07/15/16 21: 49; Admin Dose 10 MG; Start 06/14/16 at 21:00 Cholecalciferol (Vitamin D) 400 units DAILY PO Last administered on 07/16/16 08:27; Admin Dose 400 UNITS; Start 06/14/16 at 09:00 Ferrous Sulfate (Ferrous Sulfate (Ec)) 325 mg BID PO Last administered on 08:27; Admin Dose 325 MG; Start 06/14/16 at 09:00 Acetaminophen (Tylenol Tab) 500 mg Q4H PRN PO PAIN AND OR ELEVATED TEMP Last administered on 07/05/16 05:49; Admin Dose 500 MG; Start 06/14/16 at 00:00 Miscellaneous Information 1 ea NOTE XX Last administered on 06/18/16 07:57; Admin Dose 1 EA; Start 06/14/16 at 00:30 Glucose (Glutose) 15 gm Q15M PRN PO DECREASED GLUCOSE; Start 06/14/16 at 00:30 Glucose (Glutose) 22.5 gm Q15M PRN PO DECREASED GLUCOSE; Start 06/14/16 at 00: 30 Dextrose (D50w Syringe) 25 ml Q15M PRN IV DECREASED GLUCOSE Last administered on 07/16/16 13:18; Admin Dose 25 ML; Start 06/14/16 at 00:30 Dextrose (D50w Syringe) 50 ml Q15M PRN IV DECREASED GLUCOSE; Start 06/14/16 at 00:30 Glucagon (Glucagen) 1 mg Q15M PRN IM DECREASED GLUCOSE; Start 06/14/16 at 00:30 Glucose (Glutose) 15 gm Q15M PRN BUCCAL DECREASED GLUCOSE; Start 06/14/16 at 00 :30 Diagnostic Test (Pha) (Accucheck) 1 ea 02 XX Last administered on 07/11/16 01: 54; Admin Dose 1 EA; Start 06/14/16 at 02:00 Amlodipine Besylate (Norvasc) 5 mg BID PO Last administered on 07/16/16 08:29 ; Admin Dose 5 MG; Start 06/14/16 at 13:30 Clonidine (Catapres) 0.2 mg Q8 PRN PO Systolic >160 Last administered on 02:29; Admin Dose 0.2 MG; Start 06/14/16 at 13:00 Promethazine HCl/ Codeine (Phenergan/ Codeine) 5 ml Q4H PRN PO COUGH Last administered on 06/21/16 18:04; Admin Dose 5 ML; Start 06/15/16 at 00:00 Pantoprazole (Protonix Tab) 40 mg DAILY@06 PO Last administered on 07/16/16 05 :23; Admin Dose 40 MG; Start 06/16/16 at 06:00 Diphenhydramine HCl (Benadryl) 25 mg HS PRN PO INSOMNIA Last administered on 00:09; Admin Dose 25 MG; Start 06/15/16 at 21:30 Hydralazine HCl (Apresoline) 100 mg Q8 PO Last administered on 07/16/16 13:54 ; Admin Dose 100 MG; Start 06/19/16 at 13:00 Bisacodyl (Dulcolax) 10 mg DAILY PRN PO CONSTIPATION Last administered on 22:38; Admin Dose 10 MG; Start 06/22/16 at 11:30 Benazepril HCl (Lotensin) 40 mg BID PO Last administered on 07/16/16 08:29; Admin Dose 40 MG; Start 06/23/16 at 21:00 Hydralazine HCl (Apresoline) 20 mg Q4H PRN IV for SBP more than 170; Start at 05:00 Ondansetron HCl (Zofran Inj) 4 mg Q6H PRN IV NAUSEA AND/OR VOMITING Last administered on 07/16/16 08:44; Admin Dose 4 MG; Start 06/28/16 at 05:00 Lorazepam (Ativan) 1 mg Q6H PRN IV ANXIETY Last administered on 07/15/16 01:00 ; Admin Dose 1 MG; Start 06/28/16 at 05:00 Cyclobenzaprine HCl (Flexeril) 10 mg TID PO Last administered on 07/16/16 12: 39; Admin Dose 10 MG; Start 07/03/16 at 21:00 Hydromorphone HCl (Dilaudid) 0.5 mg Q4H PRN IV PAIN Last administered on 15:38; Admin Dose 0.5 MG; Start 07/07/16 at 22:00 Hydromorphone HCl (Dilaudid) 1 mg Q3H PRN IV PAIN Last administered on 12:36; Admin Dose 1 MG; Start 07/07/16 at 22:00 Metoprolol Tartrate (Lopressor) 75 mg BID PO Last administered on 07/16/16 08: 31; Admin Dose 75 MG; Start 07/09/16 at 21:00 Insulin Glargine (Lantus) 10 unit DAILY@20 SC Last administered on 07/15/16 21 :30; Admin Dose 10 UNIT; Start 07/11/16 at 20:00 Isoniazid (Isoniazid) 300 mg DAILY PO Last administered on 07/16/16 08:31; Admin Dose 300 MG; Start 07/12/16 at 15:00 Rifampin (Rifampin) 600 mg DAILY PO Last administered on 07/16/16 08:28; Admin Dose 600 MG; Start 07/12/16 at 15:00 Clonidine (Catapres) 0.1 mg TID PO Last administered on 07/14/16 09:34; Admin Dose 0.1 MG; Start 07/13/16 at 21:00; Status Future Hold Ethambutol HCl (Myambutol) 1,200 mg TuThSa@18 PO Last administered on 18:03; Admin Dose 1,200 MG; Start 07/15/16 at 18:00 Pyrazinamide (Pyrazinamide) 1,500 mg TuThSa@18 PO Last administered on 18:04; Admin Dose 1,500 MG; Start 07/15/16 at 18:00 Pyridoxine HCl (Vitamin B6) 100 mg DAILY PO Last administered on 07/16/16 08: 27; Admin Dose 100 MG; Start 07/15/16 at 16:00 Doxazosin Mesylate (Cardura) 2 mg BID PO ; Start 07/16/16 at 21:00 CECILIA DAMICO Jul 16, 2016 19:00
--- NOTE | 2016-07-16 20:21 | CONS ---
Date/Time of Note Date/Time of Note DATE: 07/16/16 TIME: 20:20 Assessment/Plan Assessment/Plan Chief Complaint/Hosp Course ESRD HTN PNEUMONIA better PLEURAL EFFUSION s/p vats ctube out hyperkalemia HX TB GOLD TEST +r/o ptb ANEMIA PLAN PER CARDIO NON COMPLIANCE W HD hd refused hd 3 x wk HD T/THURSDAY PT REFUSED HD ON THURSDAY per pcp fluid res PER SURGERY per id on anti tb drugs Problems: Consultation Date/Type/Reason Admit Date/Time Jun 13, 2016 at 14:48 Type of Consultation: renal Referring Provider: EVA COX MD 24 HR Interval Summary Constitutional: no complaints Exam/Review of Systems Vital Signs Vitals Vital Signs Date Time Temp Pulse Resp B/P Pulse Ox O2 Delivery O2 Flow Rate FiO2 07/16/16 17:02 69 07/16/16 16:03 97.8 17 159/67 94 07/15/16 16:00 Nasal Cannula 07/13/16 04:00 2.0 Intake and Output 07/15/16 07/15/16 07/16/16 15:00 23:00 07:00 Intake Total 500 ml 750 ml 300 ml Output Total 1000 ml Balance -500 ml 750 ml 300 ml Exam Neck: supple Respiratory: clear to auscultation Cardiovascular: regular rate and rhythm Gastrointestinal: soft Musculoskeletal: nl extremities to inspection Results Result Diagram: 07/16/16 0620 07/16/16 0620 Results 24 hrs Laboratory Tests Test 07/15/16 21:18 07/16/16 06:20 07/16/16 07:32 07/16/16 12:29 Bedside Glucose 134 76 64 L Anion Gap 13 Basophils # 0.1 Basophils % 1.3 Blood Urea Nitrogen 31 #H Calcium Level 9.6 Carbon Dioxide Level 33 H Chloride Level 95 L Creatinine 5.58 #H Eosinophils # 0.5 Eosinophils % 5.5 Glucose Level 67 #L Hematocrit 27.7 L Hemoglobin 9.3 L Lymphocytes # 0.7 L Lymphocytes % 7.5 L Mean Corpuscular Hemoglobin 32.9 Mean Corpuscular Hemoglobin Concent 33.6 Mean Corpuscular Volume 97.9 Mean Platelet Volume 9.2 Monocytes # 1.2 H Monocytes % 13.0 H Neutrophils # 6.9 Neutrophils % 72.3 Nucleated Red Blood Cells # 0.0 Nucleated Red Blood Cells % 0.0 Platelet Count 338 Potassium Level 4.3 Red Blood Count 2.83 L Red Cell Distribution Width 12.9 Sodium Level 137 White Blood Count 9.5 Test 07/16/16 12:48 07/16/16 13:00 07/16/16 13:35 07/16/16 13:50 Bedside Glucose 68 L 67 L 157 131 Test 07/16/16 17:04 Bedside Glucose 178 Medications Medications Current Medications IV Flush (NS 10 ml) 10 ml PRN PRN IV FLUSH LINE; Start 06/13/16 at 19:00 Aspirin (Halfprin) 81 mg DAILY PO Last administered on 07/16/16 08:28; Admin Dose 81 MG; Start 06/14/16 at 09:00 Atorvastatin Calcium (Lipitor) 10 mg QHS PO Last administered on 07/15/16 21: 49; Admin Dose 10 MG; Start 06/14/16 at 21:00 Cholecalciferol (Vitamin D) 400 units DAILY PO Last administered on 07/16/16 08:27; Admin Dose 400 UNITS; Start 06/14/16 at 09:00 Ferrous Sulfate (Ferrous Sulfate (Ec)) 325 mg BID PO Last administered on 08:27; Admin Dose 325 MG; Start 06/14/16 at 09:00 Acetaminophen (Tylenol Tab) 500 mg Q4H PRN PO PAIN AND OR ELEVATED TEMP Last administered on 07/05/16 05:49; Admin Dose 500 MG; Start 06/14/16 at 00:00 Miscellaneous Information 1 ea NOTE XX Last administered on 06/18/16 07:57; Admin Dose 1 EA; Start 06/14/16 at 00:30 Glucose (Glutose) 15 gm Q15M PRN PO DECREASED GLUCOSE; Start 06/14/16 at 00:30 Glucose (Glutose) 22.5 gm Q15M PRN PO DECREASED GLUCOSE; Start 06/14/16 at 00: 30 Dextrose (D50w Syringe) 25 ml Q15M PRN IV DECREASED GLUCOSE Last administered on 07/16/16 13:18; Admin Dose 25 ML; Start 06/14/16 at 00:30 Dextrose (D50w Syringe) 50 ml Q15M PRN IV DECREASED GLUCOSE; Start 06/14/16 at 00:30 Glucagon (Glucagen) 1 mg Q15M PRN IM DECREASED GLUCOSE; Start 06/14/16 at 00:30 Glucose (Glutose) 15 gm Q15M PRN BUCCAL DECREASED GLUCOSE; Start 06/14/16 at 00 :30 Diagnostic Test (Pha) (Accucheck) 1 ea 02 XX Last administered on 07/11/16 01: 54; Admin Dose 1 EA; Start 06/14/16 at 02:00 Amlodipine Besylate (Norvasc) 5 mg BID PO Last administered on 07/16/16 08:29 ; Admin Dose 5 MG; Start 06/14/16 at 13:30 Clonidine (Catapres) 0.2 mg Q8 PRN PO Systolic >160 Last administered on 02:29; Admin Dose 0.2 MG; Start 06/14/16 at 13:00 Promethazine HCl/ Codeine (Phenergan/ Codeine) 5 ml Q4H PRN PO COUGH Last administered on 06/21/16 18:04; Admin Dose 5 ML; Start 06/15/16 at 00:00 Pantoprazole (Protonix Tab) 40 mg DAILY@06 PO Last administered on 07/16/16 05 :23; Admin Dose 40 MG; Start 06/16/16 at 06:00 Diphenhydramine HCl (Benadryl) 25 mg HS PRN PO INSOMNIA Last administered on 00:09; Admin Dose 25 MG; Start 06/15/16 at 21:30 Hydralazine HCl (Apresoline) 100 mg Q8 PO Last administered on 07/16/16 13:54 ; Admin Dose 100 MG; Start 06/19/16 at 13:00 Bisacodyl (Dulcolax) 10 mg DAILY PRN PO CONSTIPATION Last administered on 22:38; Admin Dose 10 MG; Start 06/22/16 at 11:30 Benazepril HCl (Lotensin) 40 mg BID PO Last administered on 07/16/16 08:29; Admin Dose 40 MG; Start 06/23/16 at 21:00 Hydralazine HCl (Apresoline) 20 mg Q4H PRN IV for SBP more than 170; Start at 05:00 Ondansetron HCl (Zofran Inj) 4 mg Q6H PRN IV NAUSEA AND/OR VOMITING Last administered on 07/16/16 08:44; Admin Dose 4 MG; Start 06/28/16 at 05:00 Lorazepam (Ativan) 1 mg Q6H PRN IV ANXIETY Last administered on 07/15/16 01:00 ; Admin Dose 1 MG; Start 06/28/16 at 05:00 Cyclobenzaprine HCl (Flexeril) 10 mg TID PO Last administered on 07/16/16 12: 39; Admin Dose 10 MG; Start 07/03/16 at 21:00 Hydromorphone HCl (Dilaudid) 0.5 mg Q4H PRN IV PAIN Last administered on 15:38; Admin Dose 0.5 MG; Start 07/07/16 at 22:00 Hydromorphone HCl (Dilaudid) 1 mg Q3H PRN IV PAIN Last administered on 12:36; Admin Dose 1 MG; Start 07/07/16 at 22:00 Metoprolol Tartrate (Lopressor) 75 mg BID PO Last administered on 07/16/16 08: 31; Admin Dose 75 MG; Start 07/09/16 at 21:00 Insulin Glargine (Lantus) 10 unit DAILY@20 SC Last administered on 07/15/16 21 :30; Admin Dose 10 UNIT; Start 07/11/16 at 20:00 Isoniazid (Isoniazid) 300 mg DAILY PO Last administered on 07/16/16 08:31; Admin Dose 300 MG; Start 07/12/16 at 15:00 Rifampin (Rifampin) 600 mg DAILY PO Last administered on 07/16/16 08:28; Admin Dose 600 MG; Start 07/12/16 at 15:00 Clonidine (Catapres) 0.1 mg TID PO Last administered on 07/14/16 09:34; Admin Dose 0.1 MG; Start 07/13/16 at 21:00; Status Future Hold Ethambutol HCl (Myambutol) 1,200 mg TuThSa@18 PO Last administered on 18:03; Admin Dose 1,200 MG; Start 07/15/16 at 18:00 Pyrazinamide (Pyrazinamide) 1,500 mg TuThSa@18 PO Last administered on 18:04; Admin Dose 1,500 MG; Start 07/15/16 at 18:00 Pyridoxine HCl (Vitamin B6) 100 mg DAILY PO Last administered on 07/16/16t 08: 27; Admin Dose 100 MG; Start 07/15/16 at 16:00 Doxazosin Mesylate (Cardura) 2 mg BID PO ; Start 07/16/16 at 21:00 PAOLA MOODY MD Jul 16, 2016 20:20
[2016-07-16] MEDS: DOXAZOSIN 2 MG TAB PO SCH (20:57)
[2016-07-16] MEDS: ATORVASTATIN 10 MG TAB PO SCH (20:57)
[2016-07-16] MEDS: INSULIN GLARGINE [LANtus] 3 ML PEN SC SCH (21:06)
[2016-07-17] VITALS (12 sets, daily range): BP systolic 147–194; BP diastolic 63–85; PULSE 69–72; RESP 16–20
[2016-07-17] MEDS: ONDANSETRON 4 MG INJ IV PRN (00:05)
[2016-07-17] MEDS: HYDROmorphONE 1 MG/ML SYG IV PRN ×3 (00:25→16:44)
[2016-07-17] MEDS: LEVALBUTEROL (HFA) 15 GM INHALER INH SCH ×3 (05:49→16:00)
[2016-07-17] MEDS: PANTOPRAZOLE (EC) 40 MG TAB PO SCH (05:49)
[2016-07-17 06:28] LABS: ADD SCAN DIFF NO
[2016-07-17 06:44] LABS: BASOPHIL # 0.1 10^3/ul (0.0-0.1); BASOPHILS % 1.4 % (0.0-2.0); EOSINOPHILS # 0.5 10^3/ul (0.0-0.5); EOSINOPHILS % 5.4 % (0.0-7.0); HEMATOCRIT 28.8 % (42.0-52.0); HEMOGLOBIN 9.5 g/dl (14.0-18.0); LYMPHOCYTES # 1.1 10^3/ul (0.8-2.9); LYMPHOCYTES % 11.9 % (15.0-51.0); MEAN CORPUSCULAR HEMOGLOBIN 32.3 pg (29.0-33.0); MEAN PLATELET VOLUME 9.2 fl (7.4-10.4); MONOCYTE # 1.2 10^3/ul (0.3-0.9); MONOCYTES % 13.1 % (0.0-11.0); NEUTROPHIL # 6.1 10^3/ul (1.6-7.5); NEUTROPHILS % 67.6 % (39.0-77.0); PLATELET COUNT 352 10^3/UL (140-415); RED BLOOD COUNT 2.94 10^6/ul (4.70-6.10); RED CELL DISTRIBUTION WIDTH 12.9 % (11.5-14.5)
[2016-07-17 06:48] LABS: POTASSIUM 4.3 mmol/L (3.5-5.1)
[2016-07-17 06:50] LABS: CREATININE 6.83 mg/dl (0.61-1.24)
[2016-07-17] MEDS: FERROUS SULFATE (EC) 325 MG TAB PO SCH ×2 (08:46→20:13)
[2016-07-17] MEDS: PYRIDOXINE 50 MG TAB PO SCH (08:46)
[2016-07-17] MEDS: RIFAMPIN 300 MG CAP PO SCH (08:46)
[2016-07-17] MEDS: CALCIUM ACETATE 667 MG CAP PO SCH ×3 (08:46→17:46)
[2016-07-17] MEDS: CHOLECALCIFEROL 400 UNITS TAB PO SCH (08:46)
[2016-07-17] MEDS: BENAZEPRIL 40 MG TAB PO SCH ×2 (08:47→21:00)
[2016-07-17] MEDS: CYCLOBENZAPRINE 10 MG TAB PO SCH ×3 (08:48→20:14)
[2016-07-17] MEDS: METOPROLOL 25 MG TAB PO SCH ×2 (08:48→20:14)
[2016-07-17] MEDS: ISONIAZID 300 MG TAB PO SCH (08:48)
[2016-07-17] MEDS: SEVELAMER CARBONATE 0.8 GM PKT PO SCH ×3 (08:49→17:46)
[2016-07-17] MEDS: DOXAZOSIN 2 MG TAB PO SCH ×2 (08:49→22:00)
[2016-07-17] MEDS: ASPIRIN (EC) 81 MG TAB PO SCH (08:49)
[2016-07-17] MEDS: AMLODIPINE 5 MG TAB PO SCH (08:49)
[2016-07-17] MEDS: INSULIN ASPART [NOVOLOG] 3 ML PEN SC SCH ×8 (08:57→20:14)
[2016-07-17] MEDS: DEXTROSE 50% 50 ML SYRINGE IV PRN (12:47)
--- NOTE | 2016-07-17 15:01 | CONS ---
Date/Time of Note Date/Time of Note DATE: 07/17/16 TIME: 14:51 Assessment/Plan Assessment/Plan Chief Complaint/Hosp Course - h/o recurrent pleural effusion requiring thoracentesis approximately once a year, last performed in 04/2016 - s/p R VATS, total pulmonary decortication, R pleurodesis on 06/30/2016. Biopsy was negative for fungal stain and AFB stain (micro lab and pathology department), as well as malignancy. It showed granulomatous inflammation with focal necrosis and extensive hyalinization. Chest tube was removed. - positive quantiferon TB gold status of unknown duration. Per Pt, his past PPD was done in 2013, and was negative. 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 - DM - ESRD on HD - CAD s/p CABG in 2010 and cardiac stent in 2013 - HIV screen negative in 07/2016 tested at [facility] Recommendations: - cont RIPE (07/12/16-) - Medications adjusted per TB control- script in chart - Continue airborne isolation - Above d/w Dr. Tucker Problems: Consultation Date/Type/Reason Admit Date/Time Jun 13, 2016 at 14:48 Initial Consult Date 07/04/16 Type of Consultation: Infectious Disease Referring Provider: EVA COX MD 24 HR Interval Summary Free Text/Dictation C/o intermittent right sided chest discomfort from prior chest tube rating 7/ 10. Denies F/C, CP, SOB, abd pain, diarrhea, dysuria, ALEMAN, dizziness, or focal weakness. Reports "no appetite" since starting TB meds. Had an episode of n/v yesterday but none today. Exam/Review of Systems Vital Signs Vitals Vital Signs Date Time Temp Pulse Resp B/P Pulse Ox O2 Delivery O2 Flow Rate FiO2 07/17/16 13:48 69 07/17/16 12:20 98.4 19 159/63 92 07/15/16 16:00 Nasal Cannula Intake and Output 07/16/16 07/16/16 07/17/16 15:00 23:00 07:00 Intake Total 900 ml 600 ml Balance 900 ml 600 ml Exam Constitutional: alert, oriented, well developed Psych: nl mood/affect Head: atraumatic, normocephalic Neck: supple, No jvd Respiratory: clear to auscultation (anteriorly), diminished breath sounds (RLL) , normal air movement, other (Right lower thorax with dressing c/d/i - no TTP) Cardiovascular: nl pulses, other (left chest wall PM site c/d/i), regular rate and rhythm Gastrointestinal: bowel sounds (normoactive), non-tender, soft Musculoskeletal: nl extremities to inspection Extremities: normal pulses, No clubbing, No cyanosis, No edema Neurological: nl mental status, nl speech, nl strength Skin: nl turgor, No rash or lesions Results Result Diagram: 07/17/16 0534 07/17/16 0534 Results 24 hrs Laboratory Tests Test 07/16/16 17:04 07/16/16 21:02 07/17/16 00:16 07/17/16 05:34 Bedside Glucose 178 114 96 Anion Gap 13 Basophils # 0.1 Basophils % 1.4 Blood Urea Nitrogen 38 H Calcium Level 10.0 Carbon Dioxide Level 32 H Chloride Level 94 L Creatinine 6.83 H Eosinophils # 0.5 Eosinophils % 5.4 Glucose Level 79 Hematocrit 28.8 L Hemoglobin 9.5 L Lymphocytes # 1.1 Lymphocytes % 11.9 L Mean Corpuscular Hemoglobin 32.3 Mean Corpuscular Hemoglobin Concent 33.0 Mean Corpuscular Volume 98.0 Mean Platelet Volume 9.2 Monocytes # 1.2 H Monocytes % 13.1 H Neutrophils # 6.1 Neutrophils % 67.6 Nucleated Red Blood Cells # 0.0 Nucleated Red Blood Cells % 0.0 Platelet Count 352 Potassium Level 4.3 Red Blood Count 2.94 L Red Cell Distribution Width 12.9 Sodium Level 135 White Blood Count 9.0 Test 07/17/16 07:47 07/17/16 12:26 07/17/16 12:40 07/17/16 13:13 Bedside Glucose 144 66 L 62 L 123 Test 07/17/16 13:56 Bedside Glucose 106 Medications Medications Current Medications IV Flush (NS 10 ml) 10 ml PRN PRN IV FLUSH LINE; Start 06/13/16 at 19:00 Aspirin (Halfprin) 81 mg DAILY PO Last administered on 07/17/16 08:49; Admin Dose 81 MG; Start 06/14/16 at 09:00 Atorvastatin Calcium (Lipitor) 10 mg QHS PO Last administered on 07/16/16 20: 57; Admin Dose 10 MG; Start 06/14/16 at 21:00 Cholecalciferol (Vitamin D) 400 units DAILY PO Last administered on 07/17/16 08:46; Admin Dose 400 UNITS; Start 06/14/16 at 09:00 Ferrous Sulfate (Ferrous Sulfate (Ec)) 325 mg BID PO Last administered on 08:46; Admin Dose 325 MG; Start 06/14/16 at 09:00 Acetaminophen (Tylenol Tab) 500 mg Q4H PRN PO PAIN AND OR ELEVATED TEMP Last administered on 07/05/16 05:49; Admin Dose 500 MG; Start 06/14/16 at 00:00 Miscellaneous Information 1 ea NOTE XX Last administered on 06/18/16 07:57; Admin Dose 1 EA; Start 06/14/16 at 00:30 Glucose (Glutose) 15 gm Q15M PRN PO DECREASED GLUCOSE; Start 06/14/16 at 00:30 Glucose (Glutose) 22.5 gm Q15M PRN PO DECREASED GLUCOSE; Start 06/14/16 at 00: 30 Dextrose (D50w Syringe) 25 ml Q15M PRN IV DECREASED GLUCOSE Last administered on 07/17/16 12:47; Admin Dose 25 ML; Start 06/14/16 at 00:30 Dextrose (D50w Syringe) 50 ml Q15M PRN IV DECREASED GLUCOSE; Start 06/14/16 at 00:30 Glucagon (Glucagen) 1 mg Q15M PRN IM DECREASED GLUCOSE; Start 06/14/16 at 00:30 Glucose (Glutose) 15 gm Q15M PRN BUCCAL DECREASED GLUCOSE; Start 06/14/16 at 00 :30 Diagnostic Test (Pha) (Accucheck) 1 ea 02 XX Last administered on 07/11/16 01: 54; Admin Dose 1 EA; Start 06/14/16 at 02:00 Amlodipine Besylate (Norvasc) 5 mg BID PO Last administered on 07/17/16 08:49 ; Admin Dose 5 MG; Start 06/14/16 at 13:30 Clonidine (Catapres) 0.2 mg Q8 PRN PO Systolic >160 Last administered on 02:29; Admin Dose 0.2 MG; Start 06/14/16 at 13:00 Promethazine HCl/ Codeine (Phenergan/ Codeine) 5 ml Q4H PRN PO COUGH Last administered on 06/21/16 18:04; Admin Dose 5 ML; Start 06/15/16 at 00:00 Pantoprazole (Protonix Tab) 40 mg DAILY@06 PO Last administered on 07/17/16 05 :49; Admin Dose 40 MG; Start 06/16/16 at 06:00 Diphenhydramine HCl (Benadryl) 25 mg HS PRN PO INSOMNIA Last administered on 00:09; Admin Dose 25 MG; Start 06/15/16 at 21:30 Hydralazine HCl (Apresoline) 100 mg Q8 PO Last administered on 07/17/16 05:49 ; Admin Dose 100 MG; Start 06/19/16 at 13:00 Bisacodyl (Dulcolax) 10 mg DAILY PRN PO CONSTIPATION Last administered on 22:38; Admin Dose 10 MG; Start 06/22/16 at 11:30 Benazepril HCl (Lotensin) 40 mg BID PO Last administered on 07/17/16 08:47; Admin Dose 40 MG; Start 06/23/16 at 21:00 Hydralazine HCl (Apresoline) 20 mg Q4H PRN IV for SBP more than 170; Start at 05:00 Ondansetron HCl (Zofran Inj) 4 mg Q6H PRN IV NAUSEA AND/OR VOMITING Last administered on 07/17/16 00:05; Admin Dose 4 MG; Start 06/28/16 at 05:00 Lorazepam (Ativan) 1 mg Q6H PRN IV ANXIETY Last administered on 07/15/16 01:00 ; Admin Dose 1 MG; Start 06/28/16 at 05:00 Cyclobenzaprine HCl (Flexeril) 10 mg TID PO Last administered on 07/17/16 08: 48; Admin Dose 10 MG; Start 07/03/16 at 21:00 Hydromorphone HCl (Dilaudid) 0.5 mg Q4H PRN IV PAIN Last administered on 15:38; Admin Dose 0.5 MG; Start 07/07/16 at 22:00 Hydromorphone HCl (Dilaudid) 1 mg Q3H PRN IV PAIN Last administered on 12:21; Admin Dose 1 MG; Start 07/07/16 at 22:00 Metoprolol Tartrate (Lopressor) 75 mg BID PO Last administered on 07/17/16 08: 48; Admin Dose 75 MG; Start 07/09/16 at 21:00 Insulin Glargine (Lantus) 10 unit DAILY@20 SC Last administered on 07/16/16 21 :06; Admin Dose 10 UNIT; Start 07/11/16 at 20:00 Isoniazid (Isoniazid) 300 mg DAILY PO Last administered on 07/17/16 08:48; Admin Dose 300 MG; Start 07/12/16 at 15:00 Rifampin (Rifampin) 600 mg DAILY PO Last administered on 07/17/16 08:46; Admin Dose 600 MG; Start 07/12/16 at 15:00 Clonidine (Catapres) 0.1 mg TID PO Last administered on 07/14/16 09:34; Admin Dose 0.1 MG; Start 07/13/16 at 21:00; Status Future Hold Ethambutol HCl (Myambutol) 1,200 mg TuThSa@18 PO Last administered on 18:03; Admin Dose 1,200 MG; Start 07/15/16 at 18:00 Pyrazinamide (Pyrazinamide) 1,500 mg TuThSa@18 PO Last administered on 18:04; Admin Dose 1,500 MG; Start 07/15/16 at 18:00 Pyridoxine HCl (Vitamin B6) 100 mg DAILY PO Last administered on 07/17/16 08: 46; Admin Dose 100 MG; Start 07/15/16 at 16:00 Doxazosin Mesylate (Cardura) 2 mg BID PO Last administered on 07/17/16 08:49; Admin Dose 2 MG; Start 07/16/16 at 21:00 Procedures Procedures CXR 07/15/16: FINDINGS: There is right basilar atelectasis, unchanged. Fluid is present in the fissure on the right and at the right base. There is no left pleural effusion. The heart size is normal. There is a left-sided dual lead permanent pacemaker. There are sternal wires and mediastinal clips. There is no pneumothorax. IMPRESSION: 1. No change from 07/10/2016. NORI JORGENSEN NP Jul 17, 2016 15:01
--- NOTE | 2016-07-17 15:56 | PN ---
Date/Time of Note Date/Time of Note DATE: 07/17/16 TIME: 15:55 Assessment/Plan VTE Prophylaxis VTE Prophylaxis Intervention: heparin Lines/Catheters IV [facility] Type [facility]from [facility] PICC Line Urinary Cath still in place: No Assessment/Plan Assessment/Plan - Anemia, status post blood transfusion, heparin is on hold, Dr. Borjas is following from gastroenterology consultation. - Recurrent pleural effusions. Dr. Martinez is following in thoracic surgery consultation. S/p VATS 06/30. Biopsy revealed granulomatous inflammation with focal necrosis and extensive hyalinization. Sputum for AFB negative 3. Continued on, on airborne isolation until cleared by department of health. Dr. Carl is following in infectious disease consultation. - Quantiferon Gold positive, prior Hx of TB per department of health, s/p treatment in 1998, continue TB therapy, contact isolation per ID. - Right pleural effusion, status post thoracentesis. Dr. Dale is following in pulmonology consultation. - End-stage renal disease, continue hemodialysis. Dr. Saunders is following in nephrology consultation. - Diabetes mellitus type 2, continue Lantus, pre-meal NovoLog and NovoLog per mild algorithm sliding scale. - Hypertension. Dr. De Santiago is following and cardiology consultation. - Coronary artery disease, status post coronary artery bypass graft. - Permanent pacemaker. No acute issues. - Dyslipidemia. Continue Lipitor. Continue heparin for deep venous thrombosis prophylaxis and Protonix for peptic ulcer disease prophylaxis. Further recommendations based on clinical course. Plan of care discussed with Dr. Price. Exam/Review of Systems Vital Signs Vitals Vital Signs Date Time Temp Pulse Resp B/P Pulse Ox O2 Delivery O2 Flow Rate FiO2 07/17/16 13:48 69 07/17/16 12:20 98.4 19 159/63 92 07/15/16 16:00 Nasal Cannula Intake and Output 07/16/16 07/16/16 07/17/16 15:00 23:00 07:00 Intake Total 900 ml 600 ml Balance 900 ml 600 ml Exam Constitutional: alert, oriented, well developed Psych: nl mood/affect Head: atraumatic Eyes: EOMI, PERRL, nl sclera ENMT: nl external ears & nose Neck: supple Cardiovascular: regular rate and rhythm Gastrointestinal: non-tender, soft Extremities: normal pulses Neurological: nl mental status, nl speech Skin: other Lymph: nl lymph nodes Results Result Diagram: 07/17/16 0534 07/17/16 0534 Results 24 hrs Laboratory Tests Test 07/16/16 17:04 07/16/16 21:02 07/17/16 00:16 07/17/16 05:34 Bedside Glucose 178 114 96 Anion Gap 13 Basophils # 0.1 Basophils % 1.4 Blood Urea Nitrogen 38 H Calcium Level 10.0 Carbon Dioxide Level 32 H Chloride Level 94 L Creatinine 6.83 H Eosinophils # 0.5 Eosinophils % 5.4 Glucose Level 79 Hematocrit 28.8 L Hemoglobin 9.5 L Lymphocytes # 1.1 Lymphocytes % 11.9 L Mean Corpuscular Hemoglobin 32.3 Mean Corpuscular Hemoglobin Concent 33.0 Mean Corpuscular Volume 98.0 Mean Platelet Volume 9.2 Monocytes # 1.2 H Monocytes % 13.1 H Neutrophils # 6.1 Neutrophils % 67.6 Nucleated Red Blood Cells # 0.0 Nucleated Red Blood Cells % 0.0 Platelet Count 352 Potassium Level 4.3 Red Blood Count 2.94 L Red Cell Distribution Width 12.9 Sodium Level 135 White Blood Count 9.0 Test 07/17/16 07:47 07/17/16 12:26 07/17/16 12:40 07/17/16 13:13 Bedside Glucose 144 66 L 62 L 123 Test 07/17/16 13:56 Bedside Glucose 106 Medications Medications Current Medications IV Flush (NS 10 ml) 10 ml PRN PRN IV FLUSH LINE; Start 06/13/16 at 19:00 Aspirin (Halfprin) 81 mg DAILY PO Last administered on 07/17/16 08:49; Admin Dose 81 MG; Start 06/14/16 at 09:00 Atorvastatin Calcium (Lipitor) 10 mg QHS PO Last administered on 07/16/16 20: 57; Admin Dose 10 MG; Start 06/14/16 at 21:00 Cholecalciferol (Vitamin D) 400 units DAILY PO Last administered on 07/17/16 08:46; Admin Dose 400 UNITS; Start 06/14/16 at 09:00 Ferrous Sulfate (Ferrous Sulfate (Ec)) 325 mg BID PO Last administered on 08:46; Admin Dose 325 MG; Start 06/14/16 at 09:00 Acetaminophen (Tylenol Tab) 500 mg Q4H PRN PO PAIN AND OR ELEVATED TEMP Last administered on 07/05/16 05:49; Admin Dose 500 MG; Start 06/14/16 at 00:00 Miscellaneous Information 1 ea NOTE XX Last administered on 06/18/16 07:57; Admin Dose 1 EA; Start 06/14/16 at 00:30 Glucose (Glutose) 15 gm Q15M PRN PO DECREASED GLUCOSE; Start 06/14/16 at 00:30 Glucose (Glutose) 22.5 gm Q15M PRN PO DECREASED GLUCOSE; Start 06/14/16 at 00: 30 Dextrose (D50w Syringe) 25 ml Q15M PRN IV DECREASED GLUCOSE Last administered on 07/17/16 12:47; Admin Dose 25 ML; Start 06/14/16 at 00:30 Dextrose (D50w Syringe) 50 ml Q15M PRN IV DECREASED GLUCOSE; Start 06/14/16 at 00:30 Glucagon (Glucagen) 1 mg Q15M PRN IM DECREASED GLUCOSE; Start 06/14/16 at 00:30 Glucose (Glutose) 15 gm Q15M PRN BUCCAL DECREASED GLUCOSE; Start 06/14/16 at 00 :30 Diagnostic Test (Pha) (Accucheck) 1 ea 02 XX Last administered on 07/11/16 01: 54; Admin Dose 1 EA; Start 06/14/16 at 02:00 Amlodipine Besylate (Norvasc) 5 mg BID PO Last administered on 07/17/16 08:49 ; Admin Dose 5 MG; Start 06/14/16 at 13:30 Clonidine (Catapres) 0.2 mg Q8 PRN PO Systolic >160 Last administered on 02:29; Admin Dose 0.2 MG; Start 06/14/16 at 13:00 Promethazine HCl/ Codeine (Phenergan/ Codeine) 5 ml Q4H PRN PO COUGH Last administered on 06/21/16 18:04; Admin Dose 5 ML; Start 06/15/16 at 00:00 Pantoprazole (Protonix Tab) 40 mg DAILY@06 PO Last administered on 07/17/16 05 :49; Admin Dose 40 MG; Start 06/16/16 at 06:00 Diphenhydramine HCl (Benadryl) 25 mg HS PRN PO INSOMNIA Last administered on 00:09; Admin Dose 25 MG; Start 06/15/16 at 21:30 Hydralazine HCl (Apresoline) 100 mg Q8 PO Last administered on 07/17/16 05:49 ; Admin Dose 100 MG; Start 06/19/16 at 13:00 Bisacodyl (Dulcolax) 10 mg DAILY PRN PO CONSTIPATION Last administered on 22:38; Admin Dose 10 MG; Start 06/22/16 at 11:30 Benazepril HCl (Lotensin) 40 mg BID PO Last administered on 07/17/16 08:47; Admin Dose 40 MG; Start 06/23/16 at 21:00 Hydralazine HCl (Apresoline) 20 mg Q4H PRN IV for SBP more than 170; Start at 05:00 Ondansetron HCl (Zofran Inj) 4 mg Q6H PRN IV NAUSEA AND/OR VOMITING Last administered on 07/17/16 00:05; Admin Dose 4 MG; Start 06/28/16 at 05:00 Lorazepam (Ativan) 1 mg Q6H PRN IV ANXIETY Last administered on 07/15/16 01:00 ; Admin Dose 1 MG; Start 06/28/16 at 05:00 Cyclobenzaprine HCl (Flexeril) 10 mg TID PO Last administered on 07/17/16 08: 48; Admin Dose 10 MG; Start 07/03/16 at 21:00 Hydromorphone HCl (Dilaudid) 0.5 mg Q4H PRN IV PAIN Last administered on 15:38; Admin Dose 0.5 MG; Start 07/07/16 at 22:00 Hydromorphone HCl (Dilaudid) 1 mg Q3H PRN IV PAIN Last administered on 12:21; Admin Dose 1 MG; Start 07/07/16 at 22:00 Metoprolol Tartrate (Lopressor) 75 mg BID PO Last administered on 07/17/16 08: 48; Admin Dose 75 MG; Start 07/09/16 at 21:00 Insulin Glargine (Lantus) 10 unit DAILY@20 SC Last administered on 07/16/16 21 :06; Admin Dose 10 UNIT; Start 07/11/16 at 20:00 Isoniazid (Isoniazid) 300 mg DAILY PO Last administered on 07/17/16 08:48; Admin Dose 300 MG; Start 07/12/16 at 15:00 Rifampin (Rifampin) 600 mg DAILY PO Last administered on 07/17/16 08:46; Admin Dose 600 MG; Start 07/12/16 at 15:00 Clonidine (Catapres) 0.1 mg TID PO Last administered on 07/14/16 09:34; Admin Dose 0.1 MG; Start 07/13/16 at 21:00; Status Future Hold Ethambutol HCl (Myambutol) 1,200 mg TuThSa@18 PO Last administered on 18:03; Admin Dose 1,200 MG; Start 07/15/16 at 18:00 Pyrazinamide (Pyrazinamide) 1,500 mg TuThSa@18 PO Last administered on 18:04; Admin Dose 1,500 MG; Start 07/15/16 at 18:00 Pyridoxine HCl (Vitamin B6) 100 mg DAILY PO Last administered on 07/17/16 08: 46; Admin Dose 100 MG; Start 07/15/16 at 16:00 Doxazosin Mesylate (Cardura) 2 mg BID PO Last administered on 07/17/16 08:49; Admin Dose 2 MG; Start 07/16/16 at 21:00 PATRICIA RUEDA Jul 17, 2016 15:56
[2016-07-17] MEDS: ETHAMBUTOL 400 MG TAB PO SCH (18:00)
[2016-07-17] MEDS: PYRAZINAMIDE 500 MG TAB PO SCH (18:00)
--- NOTE | 2016-07-17 18:46 | CONS ---
Date/Time of Note Date/Time of Note DATE: 07/17/16 TIME: 18:45 Assessment/Plan Assessment/Plan Chief Complaint/Hosp Course ESRD HTN PNEUMONIA better PLEURAL EFFUSION s/p vats ctube out hyperkalemia HX TB GOLD TEST +r/o ptb ANEMIA PLAN PER CARDIO NON COMPLIANCE W HD hd refused hd 3 x wk HD T/THURSDAY PT REFUSED HD ON THURSDAY per pcp fluid res PER SURGERY per id on anti tb drugs Problems: Consultation Date/Type/Reason Admit Date/Time Jun 13, 2016 at 14:48 Type of Consultation: renal Referring Provider: EVA COX MD 24 HR Interval Summary Constitutional: no complaints Exam/Review of Systems Vital Signs Vitals Vital Signs Date Time Temp Pulse Resp B/P Pulse Ox O2 Delivery O2 Flow Rate FiO2 07/17/16 17:05 69 07/17/16 15:00 98.2 19 194/77 96 07/15/16 16:00 Nasal Cannula Intake and Output 07/16/16 07/16/16 07/17/16 14:59 22:59 06:59 Intake Total 900 ml 600 ml Balance 900 ml 600 ml Exam Neck: supple Respiratory: clear to auscultation Cardiovascular: regular rate and rhythm Gastrointestinal: soft Results Result Diagram: 07/17/16 0534 07/17/16 0534 Results 24 hrs Laboratory Tests Test 07/16/16 21:02 07/17/16 00:16 07/17/16 05:34 07/17/16 07:47 Bedside Glucose 114 96 144 Anion Gap 13 Basophils # 0.1 Basophils % 1.4 Blood Urea Nitrogen 38 H Calcium Level 10.0 Carbon Dioxide Level 32 H Chloride Level 94 L Creatinine 6.83 H Eosinophils # 0.5 Eosinophils % 5.4 Glucose Level 79 Hematocrit 28.8 L Hemoglobin 9.5 L Lymphocytes # 1.1 Lymphocytes % 11.9 L Mean Corpuscular Hemoglobin 32.3 Mean Corpuscular Hemoglobin Concent 33.0 Mean Corpuscular Volume 98.0 Mean Platelet Volume 9.2 Monocytes # 1.2 H Monocytes % 13.1 H Neutrophils # 6.1 Neutrophils % 67.6 Nucleated Red Blood Cells # 0.0 Nucleated Red Blood Cells % 0.0 Platelet Count 352 Potassium Level 4.3 Red Blood Count 2.94 L Red Cell Distribution Width 12.9 Sodium Level 135 White Blood Count 9.0 Test 07/17/16 12:26 07/17/16 12:40 07/17/16 13:13 07/17/16 13:56 Bedside Glucose 66 L 62 L 123 106 Test 07/17/16 17:33 Bedside Glucose 105 Medications Medications Current Medications IV Flush (NS 10 ml) 10 ml PRN PRN IV FLUSH LINE; Start 06/13/16 at 19:00 Aspirin (Halfprin) 81 mg DAILY PO Last administered on 07/17/16 08:49; Admin Dose 81 MG; Start 06/14/16 at 09:00 Atorvastatin Calcium (Lipitor) 10 mg QHS PO Last administered on 07/16/16 20: 57; Admin Dose 10 MG; Start 06/14/16 at 21:00 Cholecalciferol (Vitamin D) 400 units DAILY PO Last administered on 07/17/16 08:46; Admin Dose 400 UNITS; Start 06/14/16 at 09:00 Ferrous Sulfate (Ferrous Sulfate (Ec)) 325 mg BID PO Last administered on 08:46; Admin Dose 325 MG; Start 06/14/16 at 09:00 Acetaminophen (Tylenol Tab) 500 mg Q4H PRN PO PAIN AND OR ELEVATED TEMP Last administered on 07/05/16 05:49; Admin Dose 500 MG; Start 06/14/16 at 00:00 Miscellaneous Information 1 ea NOTE XX Last administered on 06/18/16 07:57; Admin Dose 1 EA; Start 06/14/16 at 00:30 Glucose (Glutose) 15 gm Q15M PRN PO DECREASED GLUCOSE; Start 06/14/16 at 00:30 Glucose (Glutose) 22.5 gm Q15M PRN PO DECREASED GLUCOSE; Start 06/14/16 at 00: 30 Dextrose (D50w Syringe) 25 ml Q15M PRN IV DECREASED GLUCOSE Last administered on 07/17/16 12:47; Admin Dose 25 ML; Start 06/14/16 at 00:30 Dextrose (D50w Syringe) 50 ml Q15M PRN IV DECREASED GLUCOSE; Start 06/14/16 at 00:30 Glucagon (Glucagen) 1 mg Q15M PRN IM DECREASED GLUCOSE; Start 06/14/16 at 00:30 Glucose (Glutose) 15 gm Q15M PRN BUCCAL DECREASED GLUCOSE; Start 06/14/16 at 00 :30 Diagnostic Test (Pha) (Accucheck) 1 ea 02 XX Last administered on 07/11/16 01: 54; Admin Dose 1 EA; Start 06/14/16 at 02:00 Amlodipine Besylate (Norvasc) 5 mg BID PO Last administered on 07/17/16 08:49 ; Admin Dose 5 MG; Start 06/14/16 at 13:30 Clonidine (Catapres) 0.2 mg Q8 PRN PO Systolic >160 Last administered on 02:29; Admin Dose 0.2 MG; Start 06/14/16 at 13:00 Promethazine HCl/ Codeine (Phenergan/ Codeine) 5 ml Q4H PRN PO COUGH Last administered on 06/21/16 18:04; Admin Dose 5 ML; Start 06/15/16 at 00:00 Pantoprazole (Protonix Tab) 40 mg DAILY@06 PO Last administered on 07/17/16 05 :49; Admin Dose 40 MG; Start 06/16/16 at 06:00 Diphenhydramine HCl (Benadryl) 25 mg HS PRN PO INSOMNIA Last administered on 00:09; Admin Dose 25 MG; Start 06/15/16 at 21:30 Hydralazine HCl (Apresoline) 100 mg Q8 PO Last administered on 07/17/16 16:40 ; Admin Dose 100 MG; Start 06/19/16 at 13:00 Bisacodyl (Dulcolax) 10 mg DAILY PRN PO CONSTIPATION Last administered on 22:38; Admin Dose 10 MG; Start 06/22/16 at 11:30 Benazepril HCl (Lotensin) 40 mg BID PO Last administered on 07/17/16 08:47; Admin Dose 40 MG; Start 06/23/16 at 21:00 Hydralazine HCl (Apresoline) 20 mg Q4H PRN IV for SBP more than 170; Start at 05:00 Ondansetron HCl (Zofran Inj) 4 mg Q6H PRN IV NAUSEA AND/OR VOMITING Last administered on 07/17/16 00:05; Admin Dose 4 MG; Start 06/28/16 at 05:00 Lorazepam (Ativan) 1 mg Q6H PRN IV ANXIETY Last administered on 07/15/16 01:00 ; Admin Dose 1 MG; Start 06/28/16 at 05:00 Cyclobenzaprine HCl (Flexeril) 10 mg TID PO Last administered on 07/17/16 16: 40; Admin Dose 10 MG; Start 07/03/16 at 21:00 Hydromorphone HCl (Dilaudid) 0.5 mg Q4H PRN IV PAIN Last administered on 15:38; Admin Dose 0.5 MG; Start 07/07/16 at 22:00 Hydromorphone HCl (Dilaudid) 1 mg Q3H PRN IV PAIN Last administered on 16:44; Admin Dose 1 MG; Start 07/07/16 at 22:00 Metoprolol Tartrate (Lopressor) 75 mg BID PO Last administered on 07/17/16 08: 48; Admin Dose 75 MG; Start 07/09/16 at 21:00 Isoniazid (Isoniazid) 300 mg DAILY PO Last administered on 07/17/16 08:48; Admin Dose 300 MG; Start 07/12/16 at 15:00 Rifampin (Rifampin) 600 mg DAILY PO Last administered on 07/17/16 08:46; Admin Dose 600 MG; Start 07/12/16 at 15:00 Clonidine (Catapres) 0.1 mg TID PO Last administered on 07/14/16 09:34; Admin Dose 0.1 MG; Start 07/13/16 at 21:00; Status Future Hold Ethambutol HCl (Myambutol) 1,200 mg TuThSa@18 PO Last administered on 18:03; Admin Dose 1,200 MG; Start 07/15/16 at 18:00 Pyrazinamide (Pyrazinamide) 1,500 mg TuThSa@18 PO Last administered on 18:04; Admin Dose 1,500 MG; Start 07/15/16 at 18:00 Pyridoxine HCl (Vitamin B6) 100 mg DAILY PO Last administered on 07/17/16 08: 46; Admin Dose 100 MG; Start 07/15/16 at 16:00 Doxazosin Mesylate (Cardura) 2 mg BID PO Last administered on 3/16/17at 08:49; Admin Dose 2 MG; Start 07/16/16 at 21:00 Insulin Glargine (Lantus) 6 unit DAILY@20 SC ; Start 07/17/16 at 20:00; Status UNV Miscellaneous Information (* Miscellaneous Pharmacy Order) HYPOGLYCEMIA PROTOCOL w... ONCE ONCE XX ; Start 07/17/16 at 18:30; Stop 07/17/16 at 18:31; Status UNV Miscellaneous Information (* Miscellaneous Pharmacy Order) Discontinue Glyburide , Glipizide,... ONCE ONCE XX ; Start 07/17/16 at 18:30; Stop 07/17/16 at 18:31 ; Status UNV Miscellaneous Information (* Miscellaneous Pharmacy Order) Discontinue all previ... ONCE ONCE XX ; Start 07/17/16 at 18:30; Stop 07/17/16 at 18:31; Status UNV Diagnostic Test (Pha) (Accucheck) 1 XX ; Start 07/18/16 at 02:00; Status UNV PAOLA MOODY MD Jul 17, 2016 18:45
--- NOTE | 2016-07-17 19:33 | CONS ---
Date/Time of Note Date/Time of Note DATE: 07/17/16 TIME: 19:31 Assessment/Plan Assessment/Plan Chief Complaint/Hosp Course IMPRESSION: 1. Abnormal electrocardiogram, assess for acute coronary syndrome.-negative troponin x 3 2. History of recent negative stress, May 2015. 3. History of percutaneous transluminal coronary angioplasty and stent placement in 2014 to the left main left anterior descending. No current chest pain. 4. Hypertension-worsening today/uncontrolled 5. History of dyslipidemia. 6. Pleural effusion, status post thoracentesis. 7. Possible pneumonia/cough-improved 8. Diabetes mellitus. 9. End-stage renal disease, on hemodialysis. 10. Had WCT-06/27 which was paced beats at approx 100. NO recurrence since .MAC infection/colonization? RECOMMENDATIONS: -Tele -Continue metoprolol -Continue Benazepril -Continue hydralazine/cardura -CHange norvasc to procardia XL for possible increased efficacy -Continue asa/statin/plavix -Consider abx's and f/u cx data -Follow volume status with HD for volume removal -Now on treatment for TB Problems: Consultation Date/Type/Reason Admit Date/Time Jun 13, 2016 at 14:48 Initial Consult Date 06/14/2016 Type of Consultation: Cardiology Reason for Consultation HTN Referring Provider: EVA COX MD Exam/Review of Systems Vital Signs Vitals Vital Signs Date Time Temp Pulse Resp B/P Pulse Ox O2 Delivery O2 Flow Rate FiO2 07/17/16 17:05 69 07/17/16 15:00 98.2 19 194/77 96 07/15/16 16:00 Nasal Cannula Intake and Output 07/16/16 07/16/16 07/17/16 15:00 23:00 07:00 Intake Total 900 ml 600 ml Balance 900 ml 600 ml Exam Review of Systems: CONSTITUTIONAL: No fevers, chills. PULMONARY: No sob CARDIOVASCULAR: No chest pain/palpitations GASTROINTESTINAL: No nausea/vomiting. GENITOURINARY: No hematuria/dysuria. MUSCULOSKELETAL: No myagias/arthalgias. PSYCHIATRIC: The patient denies depression. NEUROLOGIC: No weakness Constitutional: alert, oriented Psych: no complaints Head: normocephalic ENMT: mucosa pink and moist Neck: jvd (9 cm water), supple Respiratory: diminished breath sounds (at bases/B) Cardiovascular: regular rate and rhythm Gastrointestinal: non-tender, soft Musculoskeletal: muscle tone (normal) Extremities: edema (none) Neurological: other (No focal deficits) Results Result Diagram: 07/17/16 0534 07/17/16 0534 Results 24 hrs Laboratory Tests Test 07/16/16 21:02 07/17/16 00:16 07/17/16 05:34 07/17/16 07:47 Bedside Glucose 114 96 144 Anion Gap 13 Basophils # 0.1 Basophils % 1.4 Blood Urea Nitrogen 38 H Calcium Level 10.0 Carbon Dioxide Level 32 H Chloride Level 94 L Creatinine 6.83 H Eosinophils # 0.5 Eosinophils % 5.4 Glucose Level 79 Hematocrit 28.8 L Hemoglobin 9.5 L Lymphocytes # 1.1 Lymphocytes % 11.9 L Mean Corpuscular Hemoglobin 32.3 Mean Corpuscular Hemoglobin Concent 33.0 Mean Corpuscular Volume 98.0 Mean Platelet Volume 9.2 Monocytes # 1.2 H Monocytes % 13.1 H Neutrophils # 6.1 Neutrophils % 67.6 Nucleated Red Blood Cells # 0.0 Nucleated Red Blood Cells % 0.0 Platelet Count 352 Potassium Level 4.3 Red Blood Count 2.94 L Red Cell Distribution Width 12.9 Sodium Level 135 White Blood Count 9.0 Test 07/17/16 12:26 07/17/16 12:40 07/17/16 13:13 07/17/16 13:56 Bedside Glucose 66 L 62 L 123 106 Test 07/17/16 17:33 Bedside Glucose 105 Medications Medications Current Medications IV Flush (NS 10 ml) 10 ml PRN PRN IV FLUSH LINE; Start 06/13/16 at 19:00 Aspirin (Halfprin) 81 mg DAILY PO Last administered on 07/17/16 08:49; Admin Dose 81 MG; Start 06/14/16 at 09:00 Atorvastatin Calcium (Lipitor) 10 mg QHS PO Last administered on 07/16/16 20: 57; Admin Dose 10 MG; Start 06/14/16 at 21:00 Cholecalciferol (Vitamin D) 400 units DAILY PO Last administered on 07/17/16 08:46; Admin Dose 400 UNITS; Start 06/14/16 at 09:00 Ferrous Sulfate (Ferrous Sulfate (Ec)) 325 mg BID PO Last administered on 08:46; Admin Dose 325 MG; Start 06/14/16 at 09:00 Acetaminophen (Tylenol Tab) 500 mg Q4H PRN PO PAIN AND OR ELEVATED TEMP Last administered on 07/05/16 05:49; Admin Dose 500 MG; Start 06/14/16 at 00:00 Miscellaneous Information 1 ea NOTE XX Last administered on 06/18/16 07:57; Admin Dose 1 EA; Start 06/14/16 at 00:30 Glucose (Glutose) 15 gm Q15M PRN PO DECREASED GLUCOSE; Start 06/14/16 at 00:30 Glucose (Glutose) 22.5 gm Q15M PRN PO DECREASED GLUCOSE; Start 06/14/16 at 00: 30 Dextrose (D50w Syringe) 25 ml Q15M PRN IV DECREASED GLUCOSE Last administered on 07/17/16 12:47; Admin Dose 25 ML; Start 06/14/16 at 00:30 Dextrose (D50w Syringe) 50 ml Q15M PRN IV DECREASED GLUCOSE; Start 06/14/16 at 00:30 Glucagon (Glucagen) 1 mg Q15M PRN IM DECREASED GLUCOSE; Start 06/14/16 at 00:30 Glucose (Glutose) 15 gm Q15M PRN BUCCAL DECREASED GLUCOSE; Start 06/14/16 at 00 :30 Diagnostic Test (Pha) (Accucheck) 1 ea 02 XX Last administered on 07/11/16 01: 54; Admin Dose 1 EA; Start 06/14/16 at 02:00 Amlodipine Besylate (Norvasc) 5 mg BID PO Last administered on 07/17/16 08:49 ; Admin Dose 5 MG; Start 06/14/16 at 13:30 Clonidine (Catapres) 0.2 mg Q8 PRN PO Systolic >160 Last administered on 02:29; Admin Dose 0.2 MG; Start 06/14/16 at 13:00 Promethazine HCl/ Codeine (Phenergan/ Codeine) 5 ml Q4H PRN PO COUGH Last administered on 06/21/16 18:04; Admin Dose 5 ML; Start 06/15/16 at 00:00 Pantoprazole (Protonix Tab) 40 mg DAILY@06 PO Last administered on 07/17/16 05 :49; Admin Dose 40 MG; Start 06/16/16 at 06:00 Diphenhydramine HCl (Benadryl) 25 mg HS PRN PO INSOMNIA Last administered on 00:09; Admin Dose 25 MG; Start 06/15/16 at 21:30 Hydralazine HCl (Apresoline) 100 mg Q8 PO Last administered on 07/17/16 16:40 ; Admin Dose 100 MG; Start 06/19/16 at 13:00 Bisacodyl (Dulcolax) 10 mg DAILY PRN PO CONSTIPATION Last administered on 22:38; Admin Dose 10 MG; Start 06/22/16 at 11:30 Benazepril HCl (Lotensin) 40 mg BID PO Last administered on 07/17/16 08:47; Admin Dose 40 MG; Start 06/23/16 at 21:00 Hydralazine HCl (Apresoline) 20 mg Q4H PRN IV for SBP more than 170; Start at 05:00 Ondansetron HCl (Zofran Inj) 4 mg Q6H PRN IV NAUSEA AND/OR VOMITING Last administered on 07/17/16 00:05; Admin Dose 4 MG; Start 06/28/16 at 05:00 Lorazepam (Ativan) 1 mg Q6H PRN IV ANXIETY Last administered on 07/15/16 01:00 ; Admin Dose 1 MG; Start 06/28/16 at 05:00 Cyclobenzaprine HCl (Flexeril) 10 mg TID PO Last administered on 07/17/16 16: 40; Admin Dose 10 MG; Start 07/03/16 at 21:00 Hydromorphone HCl (Dilaudid) 0.5 mg Q4H PRN IV PAIN Last administered on 15:38; Admin Dose 0.5 MG; Start 07/07/16 at 22:00 Hydromorphone HCl (Dilaudid) 1 mg Q3H PRN IV PAIN Last administered on 16:44; Admin Dose 1 MG; Start 07/07/16 at 22:00 Metoprolol Tartrate (Lopressor) 75 mg BID PO Last administered on 07/17/16 08: 48; Admin Dose 75 MG; Start 07/09/16 at 21:00 Isoniazid (Isoniazid) 300 mg DAILY PO Last administered on 07/17/16 08:48; Admin Dose 300 MG; Start 07/12/16 at 15:00 Rifampin (Rifampin) 600 mg DAILY PO Last administered on 07/17/16 08:46; Admin Dose 600 MG; Start 07/12/16 at 15:00 Clonidine (Catapres) 0.1 mg TID PO Last administered on 07/14/16 09:34; Admin Dose 0.1 MG; Start 07/13/16 at 21:00; Status Future Hold Ethambutol HCl (Myambutol) 1,200 mg TuThSa@18 PO Last administered on 18:03; Admin Dose 1,200 MG; Start 07/15/16 at 18:00 Pyrazinamide (Pyrazinamide) 1,500 mg TuThSa@18 PO Last administered on 18:04; Admin Dose 1,500 MG; Start 07/15/16 at 18:00 Pyridoxine HCl (Vitamin B6) 100 mg DAILY PO Last administered on 07/17/16 08: 46; Admin Dose 100 MG; Start 07/15/16 at 16:00 Doxazosin Mesylate (Cardura) 2 mg BID PO Last administered on 07/17/16 08:49; Admin Dose 2 MG; Start 07/16/16 at 21:00 Insulin Glargine (Lantus) 6 unit DAILY@20 SC ; Start 07/17/16 at 20:00; Status UNV Miscellaneous Information (* Miscellaneous Pharmacy Order) HYPOGLYCEMIA PROTOCOL w... ONCE ONCE XX ; Start 07/17/16 at 18:30; Stop 07/17/16 at 18:31; Status UNV Miscellaneous Information (* Miscellaneous Pharmacy Order) Discontinue Glyburide , Glipizide,... ONCE ONCE XX ; Start 07/17/16 at 18:30; Stop 07/17/16 at 18:31 ; Status UNV Miscellaneous Information (* Miscellaneous Pharmacy Order) Discontinue all previ... ONCE ONCE XX ; Start 07/17/16 at 18:30; Stop 07/17/16 at 18:31; Status UNV Diagnostic Test (Pha) (Accucheck) 1 XX ; Start 07/18/16 at 02:00; Status UNV SHERITA SCOTT Jul 17, 2016 19:33
[2016-07-17] MEDS: ATORVASTATIN 10 MG TAB PO SCH (20:13)
[2016-07-17] MEDS: NIFEdipine (XL) 60 MG TAB PO SCH (20:14)
[2016-07-17] MEDS: ACCU-CHEK XX SCH ×2 (20:16→21:33)
[2016-07-17] MEDS: INSULIN GLARGINE [LANtus] 3 ML PEN SC SCH (21:59)
[2016-07-17] MEDS: hydrALAzine 20 MG INJ IV PRN (23:15)
[2016-07-18] VITALS (13 sets, daily range): BP systolic 137–184; BP diastolic 59–77; PULSE 68–72; RESP 17–20
[2016-07-18] MEDS: HYDROmorphONE 1 MG/ML SYG IV PRN ×2 (01:06→14:52)
[2016-07-18] MEDS: LORAZEPAM 2 MG INJ IV PRN ×2 (01:18→21:38)
[2016-07-18] MEDS ORDERED: ACCU-CHEK XX SCH (02:00)
[2016-07-18] MEDS: PANTOPRAZOLE (EC) 40 MG TAB PO SCH (05:16)
[2016-07-18] MEDS: ACCU-CHEK XX SCH ×5 (07:30→21:36)
[2016-07-18 07:41] LABS: ADD SCAN DIFF NO; BASOPHIL # 0.1 10^3/ul (0.0-0.1); BASOPHILS % 1.8 % (0.0-2.0); EOSINOPHILS # 0.7 10^3/ul (0.0-0.5); EOSINOPHILS % 9.3 % (0.0-7.0); HEMATOCRIT 26.1 % (42.0-52.0); HEMOGLOBIN 8.7 g/dl (14.0-18.0); LYMPHOCYTES % 13.6 % (15.0-51.0); MEAN CORPUSCULAR HGB CONC 33.3 g/dl (32.0-37.0); MEAN CORPUSCULAR VOLUME 98.9 fl (82.0-101.0); MEAN PLATELET VOLUME 9.1 fl (7.4-10.4); MONOCYTE # 0.9 10^3/ul (0.3-0.9); MONOCYTES % 11.3 % (0.0-11.0); NEUTROPHIL # 4.9 10^3/ul (1.6-7.5); NEUTROPHILS % 63.7 % (39.0-77.0); PLATELET COUNT 325 10^3/UL (140-415); RED BLOOD COUNT 2.64 10^6/ul (4.70-6.10); RED CELL DISTRIBUTION WIDTH 12.9 % (11.5-14.5); WHITE BLOOD COUNT 7.6 10^3/ul (4.8-10.8)
[2016-07-18] MEDS: INSULIN ASPART [NOVOLOG] 3 ML PEN SC SCH ×7 (08:00→19:53)
[2016-07-18] MEDS: LEVALBUTEROL (HFA) 15 GM INHALER INH SCH ×3 (08:00→17:36)
[2016-07-18 08:13] LABS: CREATININE 8.13 mg/dl (0.61-1.24)
[2016-07-18 08:14] LABS: CALCIUM 10.2 mg/dl (8.4-10.2)
[2016-07-18] MEDS: SEVELAMER CARBONATE 0.8 GM PKT PO SCH ×3 (09:14→17:36)
[2016-07-18] MEDS: ISONIAZID 300 MG TAB PO SCH (09:15)
[2016-07-18] MEDS: PYRIDOXINE 50 MG TAB PO SCH (09:15)
[2016-07-18] MEDS: FERROUS SULFATE (EC) 325 MG TAB PO SCH ×2 (09:15→21:23)
[2016-07-18] MEDS: RIFAMPIN 300 MG CAP PO SCH (09:15)
[2016-07-18] MEDS: CYCLOBENZAPRINE 10 MG TAB PO SCH ×3 (09:15→21:23)
[2016-07-18] MEDS: CHOLECALCIFEROL 400 UNITS TAB PO SCH (09:16)
[2016-07-18] MEDS: METOPROLOL 25 MG TAB PO SCH ×2 (09:16→21:25)
[2016-07-18] MEDS: ASPIRIN (EC) 81 MG TAB PO SCH (09:16)
[2016-07-18] MEDS: BENAZEPRIL 40 MG TAB PO SCH ×2 (09:16→21:24)
[2016-07-18] MEDS: CALCIUM ACETATE 667 MG CAP PO SCH ×3 (09:16→17:36)
[2016-07-18] MEDS: NIFEdipine (XL) 60 MG TAB PO SCH ×2 (09:17→21:24)
[2016-07-18] MEDS: DOXAZOSIN 2 MG TAB PO SCH ×2 (09:17→21:24)
--- NOTE | 2016-07-18 14:21 | CONS ---
Date/Time of Note Date/Time of Note DATE: 07/18/16 TIME: 14:18 Assessment/Plan Assessment/Plan Chief Complaint/Hosp Course IMPRESSION: 1. Abnormal electrocardiogram, assess for acute coronary syndrome.-negative troponin x 3 2. History of recent negative stress, May 2015. 3. History of percutaneous transluminal coronary angioplasty and stent placement in 2014 to the left main left anterior descending. No current chest pain. 4. Hypertension-worsening today/uncontrolled 5. History of dyslipidemia. 6. Pleural effusion, status post thoracentesis. 7. Possible pneumonia/cough-improved 8. Diabetes mellitus. 9. End-stage renal disease, on hemodialysis. 10. Had WCT-06/27 which was paced beats at approx 100. NO recurrence since .MAC infection/colonization? RECOMMENDATIONS: -Tele -Continue metoprolol -Continue Benazepril -Continue hydralazine/cardura -CHange norvasc to procardia XL for possible increased efficacy whioch appears to be improving BP closely -Continue asa/statin/plavix -Consider abx's and f/u cx data -Follow volume status with HD for volume removal -Now on treatment for TB Problems: Consultation Date/Type/Reason Admit Date/Time Jun 13, 2016 at 14:48 Initial Consult Date 06/14/2016 Type of Consultation: Cardiology Reason for Consultation Chest pain/HTN Referring Provider: EVA COX MD Exam/Review of Systems Vital Signs Vitals Vital Signs Date Time Temp Pulse Resp B/P Pulse Ox O2 Delivery O2 Flow Rate FiO2 07/18/16 12:28 69 07/18/16 12:10 98.0 18 144/62 94 07/15/16 16:00 Nasal Cannula Intake and Output 07/17/16 07/17/16 07/18/16 15:00 23:00 07:00 Intake Total 650 ml Balance 650 ml Exam Review of Systems: CONSTITUTIONAL: No fevers, chills. PULMONARY: No sob CARDIOVASCULAR: No chest pain/palpitations GASTROINTESTINAL: No nausea/vomiting. GENITOURINARY: No hematuria/dysuria. MUSCULOSKELETAL: No myagias/arthalgias. PSYCHIATRIC: The patient denies depression. NEUROLOGIC: No weakness Constitutional: alert, oriented Psych: no complaints Head: normocephalic ENMT: mucosa pink and moist Neck: jvd (8 cm water), supple Respiratory: diminished breath sounds Cardiovascular: regular rate and rhythm Gastrointestinal: non-tender, soft Musculoskeletal: muscle tone (normal) Extremities: edema (none) Neurological: other (No focal deficits) Results Result Diagram: 07/18/16 0603 07/18/16 0605 Results 24 hrs Laboratory Tests Test 07/17/16 17:33 07/17/16 19:39 07/18/16 01:10 07/18/16 06:03 Bedside Glucose 105 130 109 Basophils # 0.1 Basophils % 1.8 Eosinophils # 0.7 H Eosinophils % 9.3 H Hematocrit 26.1 L Hemoglobin 8.7 L Lymphocytes # 1.0 Lymphocytes % 13.6 L Mean Corpuscular Hemoglobin 33.0 Mean Corpuscular Hemoglobin Concent 33.3 Mean Corpuscular Volume 98.9 Mean Platelet Volume 9.1 Monocytes # 0.9 Monocytes % 11.3 H Neutrophils # 4.9 Neutrophils % 63.7 Nucleated Red Blood Cells # 0.0 Nucleated Red Blood Cells % 0.0 Platelet Count 325 Red Blood Count 2.64 L Red Cell Distribution Width 12.9 White Blood Count 7.6 Test 07/18/16 06:05 07/18/16 07:58 07/18/16 11:23 Anion Gap 14 Blood Urea Nitrogen 49 #H Calcium Level 10.2 Carbon Dioxide Level 29 Chloride Level 96 L Creatinine 8.13 H Glucose Level 126 # Potassium Level 5.0 Sodium Level 134 L Bedside Glucose 126 169 Medications Medications Current Medications IV Flush (NS 10 ml) 10 ml PRN PRN IV FLUSH LINE; Start 06/13/16 at 19:00 Aspirin (Halfprin) 81 mg DAILY PO Last administered on 07/18/16 09:16; Admin Dose 81 MG; Start 06/14/16 at 09:00 Atorvastatin Calcium (Lipitor) 10 mg QHS PO Last administered on 07/17/16 20: 13; Admin Dose 10 MG; Start 06/14/16 at 21:00 Cholecalciferol (Vitamin D) 400 units DAILY PO Last administered on 07/18/16 09:16; Admin Dose 400 UNITS; Start 06/14/16 at 09:00 Ferrous Sulfate (Ferrous Sulfate (Ec)) 325 mg BID PO Last administered on 09:15; Admin Dose 325 MG; Start 06/14/16 at 09:00 Acetaminophen (Tylenol Tab) 500 mg Q4H PRN PO PAIN AND OR ELEVATED TEMP Last administered on 07/05/16 05:49; Admin Dose 500 MG; Start 06/14/16 at 00:00 Miscellaneous Information 1 ea NOTE XX Last administered on 06/18/16 07:57; Admin Dose 1 EA; Start 06/14/16 at 00:30 Glucose (Glutose) 15 gm Q15M PRN PO DECREASED GLUCOSE; Start 06/14/16 at 00:30 Glucose (Glutose) 22.5 gm Q15M PRN PO DECREASED GLUCOSE; Start 06/14/16 at 00: 30 Dextrose (D50w Syringe) 25 ml Q15M PRN IV DECREASED GLUCOSE Last administered on 07/17/16 12:47; Admin Dose 25 ML; Start 06/14/16 at 00:30 Dextrose (D50w Syringe) 50 ml Q15M PRN IV DECREASED GLUCOSE; Start 06/14/16 at 00:30 Glucagon (Glucagen) 1 mg Q15M PRN IM DECREASED GLUCOSE; Start 06/14/16 at 00:30 Glucose (Glutose) 15 gm Q15M PRN BUCCAL DECREASED GLUCOSE; Start 06/14/16 at 00 :30 Diagnostic Test (Pha) (Accucheck) 1 ea 02 XX Last administered on 07/11/16 01: 54; Admin Dose 1 EA; Start 06/14/16 at 02:00 Clonidine (Catapres) 0.2 mg Q8 PRN PO Systolic >160 Last administered on 02:29; Admin Dose 0.2 MG; Start 06/14/16 at 13:00 Promethazine HCl/ Codeine (Phenergan/ Codeine) 5 ml Q4H PRN PO COUGH Last administered on 06/21/16 18:04; Admin Dose 5 ML; Start 06/15/16 at 00:00 Pantoprazole (Protonix Tab) 40 mg DAILY@06 PO Last administered on 07/18/16 05 :16; Admin Dose 40 MG; Start 06/16/16 at 06:00 Diphenhydramine HCl (Benadryl) 25 mg HS PRN PO INSOMNIA Last administered on 00:09; Admin Dose 25 MG; Start 06/15/16 at 21:30 Hydralazine HCl (Apresoline) 100 mg Q8 PO Last administered on 07/18/16 13:11 ; Admin Dose 100 MG; Start 06/19/16 at 13:00 Bisacodyl (Dulcolax) 10 mg DAILY PRN PO CONSTIPATION Last administered on 22:38; Admin Dose 10 MG; Start 06/22/16 at 11:30 Benazepril HCl (Lotensin) 40 mg BID PO Last administered on 07/18/16 09:16; Admin Dose 40 MG; Start 06/23/16 at 21:00 Hydralazine HCl (Apresoline) 20 mg Q4H PRN IV for SBP more than 170 Last administered on 07/17/16 23:15; Admin Dose 20 MG; Start 06/28/16 at 05:00 Ondansetron HCl (Zofran Inj) 4 mg Q6H PRN IV NAUSEA AND/OR VOMITING Last administered on 07/17/16 00:05; Admin Dose 4 MG; Start 06/28/16 at 05:00 Lorazepam (Ativan) 1 mg Q6H PRN IV ANXIETY Last administered on 07/18/16 01:18 ; Admin Dose 1 MG; Start 06/28/16 at 05:00 Cyclobenzaprine HCl (Flexeril) 10 mg TID PO Last administered on 07/18/16 13: 10; Admin Dose 10 MG; Start 07/03/16 at 21:00 Hydromorphone HCl (Dilaudid) 0.5 mg Q4H PRN IV PAIN Last administered on 15:38; Admin Dose 0.5 MG; Start 07/07/16 at 22:00 Hydromorphone HCl (Dilaudid) 1 mg Q3H PRN IV PAIN Last administered on 01:06; Admin Dose 1 MG; Start 07/07/16 at 22:00 Metoprolol Tartrate (Lopressor) 75 mg BID PO Last administered on 07/18/16 09: 16; Admin Dose 75 MG; Start 07/09/16 at 21:00 Isoniazid (Isoniazid) 300 mg DAILY PO Last administered on 07/18/16 09:15; Admin Dose 300 MG; Start 07/12/16 at 15:00 Rifampin (Rifampin) 600 mg DAILY PO Last administered on 07/18/16 09:15; Admin Dose 600 MG; Start 07/12/16 at 15:00 Clonidine (Catapres) 0.1 mg TID PO Last administered on 07/14/16 09:34; Admin Dose 0.1 MG; Start 07/13/16 at 21:00; Status Future Hold Ethambutol HCl (Myambutol) 1,200 mg TuThSa@18 PO Last administered on 18:00; Admin Dose 1,200 MG; Start 07/15/16 at 18:00 Pyrazinamide (Pyrazinamide) 1,500 mg TuThSa@18 PO Last administered on 18:00; Admin Dose 1,500 MG; Start 07/15/16 at 18:00 Pyridoxine HCl (Vitamin B6) 100 mg DAILY PO Last administered on 07/18/16 09: 15; Admin Dose 100 MG; Start 07/15/16 at 16:00 Doxazosin Mesylate (Cardura) 2 mg BID PO Last administered on 07/18/16 09:17; Admin Dose 2 MG; Start 07/16/16 at 21:00 Insulin Glargine (Lantus) 6 unit DAILY@20 SC Last administered on 07/17/16 21: 59; Admin Dose 6 UNIT; Start 07/17/16 at 20:00 Nifedipine (Procardia Xl) 60 mg BID PO Last administered on 07/18/16 09:17; Admin Dose 60 MG; Start 07/17/16 at 21:00 SHERITA SCOTT 17, 2017 14:20
[2016-07-18] MEDS: ONDANSETRON 4 MG INJ IV PRN (14:52)
[2016-07-18] MEDS: hydrALAzine 20 MG INJ IV PRN (15:01)
--- NOTE | 2016-07-18 18:10 | CONS ---
Date/Time of Note Date/Time of Note DATE: 07/18/16 TIME: 18:09 Assessment/Plan Assessment/Plan Chief Complaint/Hosp Course ESRD HTN PNEUMONIA better PLEURAL EFFUSION s/p vats ctube out hyperkalemia HX TB GOLD TEST +r/o ptb ANEMIA PLAN PER CARDIO NON COMPLIANCE W HD hd refused hd 3 x wk HD am T/THURSDAY PT REFUSED HD ON THURSDAY per pcp fluid res PER SURGERY per id on anti tb drugs Problems: Consultation Date/Type/Reason Admit Date/Time Jun 13, 2016 at 14:48 Type of Consultation: renal Referring Provider: EVA COX MD 24 HR Interval Summary Constitutional: improved Exam/Review of Systems Vital Signs Vitals Vital Signs Date Time Temp Pulse Resp B/P Pulse Ox O2 Delivery O2 Flow Rate FiO2 07/18/16 16:53 69 07/18/16 15:47 164/70 07/18/16 12:10 98.0 18 94 07/15/16 16:00 Nasal Cannula Intake and Output 07/17/16 07/17/16 07/18/16 15:00 23:00 07:00 Intake Total 650 ml Balance 650 ml Exam Respiratory: diminished breath sounds Cardiovascular: regular rate and rhythm Gastrointestinal: soft Musculoskeletal: nl extremities to inspection Results Result Diagram: 07/18/16 0603 07/18/16 0605 Results 24 hrs Laboratory Tests Test 07/17/16 19:39 07/18/16 01:10 07/18/16 06:03 07/18/16 06:05 Bedside Glucose 130 109 Basophils # 0.1 Basophils % 1.8 Eosinophils # 0.7 H Eosinophils % 9.3 H Hematocrit 26.1 L Hemoglobin 8.7 L Lymphocytes # 1.0 Lymphocytes % 13.6 L Mean Corpuscular Hemoglobin 33.0 Mean Corpuscular Hemoglobin Concent 33.3 Mean Corpuscular Volume 98.9 Mean Platelet Volume 9.1 Monocytes # 0.9 Monocytes % 11.3 H Neutrophils # 4.9 Neutrophils % 63.7 Nucleated Red Blood Cells # 0.0 Nucleated Red Blood Cells % 0.0 Platelet Count 325 Red Blood Count 2.64 L Red Cell Distribution Width 12.9 White Blood Count 7.6 Anion Gap 14 Blood Urea Nitrogen 49 #H Calcium Level 10.2 Carbon Dioxide Level 29 Chloride Level 96 L Creatinine 8.13 H Glucose Level 126 # Potassium Level 5.0 Sodium Level 134 L Test 07/18/16 07:58 07/18/16 11:23 07/18/16 17:14 Bedside Glucose 126 169 138 Medications Medications Current Medications IV Flush (NS 10 ml) 10 ml PRN PRN IV FLUSH LINE; Start 06/13/16 at 19:00 Aspirin (Halfprin) 81 mg DAILY PO Last administered on 07/18/16 09:16; Admin Dose 81 MG; Start 06/14/16 at 09:00 Atorvastatin Calcium (Lipitor) 10 mg QHS PO Last administered on 07/17/16 20: 13; Admin Dose 10 MG; Start 06/14/16 at 21:00 Cholecalciferol (Vitamin D) 400 units DAILY PO Last administered on 07/18/16 09:16; Admin Dose 400 UNITS; Start 06/14/16 at 09:00 Ferrous Sulfate (Ferrous Sulfate (Ec)) 325 mg BID PO Last administered on 09:15; Admin Dose 325 MG; Start 06/14/16 at 09:00 Acetaminophen (Tylenol Tab) 500 mg Q4H PRN PO PAIN AND OR ELEVATED TEMP Last administered on 07/05/16 05:49; Admin Dose 500 MG; Start 06/14/16 at 00:00 Miscellaneous Information 1 ea NOTE XX Last administered on 06/18/16 07:57; Admin Dose 1 EA; Start 06/14/16 at 00:30 Glucose (Glutose) 15 gm Q15M PRN PO DECREASED GLUCOSE; Start 06/14/16 at 00:30 Glucose (Glutose) 22.5 gm Q15M PRN PO DECREASED GLUCOSE; Start 06/14/16 at 00: 30 Dextrose (D50w Syringe) 25 ml Q15M PRN IV DECREASED GLUCOSE Last administered on 07/17/16 12:47; Admin Dose 25 ML; Start 06/14/16 at 00:30 Dextrose (D50w Syringe) 50 ml Q15M PRN IV DECREASED GLUCOSE; Start 06/14/16 at 00:30 Glucagon (Glucagen) 1 mg Q15M PRN IM DECREASED GLUCOSE; Start 06/14/16 at 00:30 Glucose (Glutose) 15 gm Q15M PRN BUCCAL DECREASED GLUCOSE; Start 06/14/16 at 00 :30 Diagnostic Test (Pha) (Accucheck) 1 ea 02 XX Last administered on 07/11/16 01: 54; Admin Dose 1 EA; Start 06/14/16 at 02:00 Clonidine (Catapres) 0.2 mg Q8 PRN PO Systolic >160 Last administered on 02:29; Admin Dose 0.2 MG; Start 06/14/16 at 13:00 Promethazine HCl/ Codeine (Phenergan/ Codeine) 5 ml Q4H PRN PO COUGH Last administered on 06/21/16 18:04; Admin Dose 5 ML; Start 06/15/16 at 00:00 Pantoprazole (Protonix Tab) 40 mg DAILY@06 PO Last administered on 07/18/16 05 :16; Admin Dose 40 MG; Start 06/16/16 at 06:00 Diphenhydramine HCl (Benadryl) 25 mg HS PRN PO INSOMNIA Last administered on 00:09; Admin Dose 25 MG; Start 06/15/16 at 21:30 Hydralazine HCl (Apresoline) 100 mg Q8 PO Last administered on 07/18/16 13:11 ; Admin Dose 100 MG; Start 06/19/16 at 13:00 Bisacodyl (Dulcolax) 10 mg DAILY PRN PO CONSTIPATION Last administered on 22:38; Admin Dose 10 MG; Start 06/22/16 at 11:30 Benazepril HCl (Lotensin) 40 mg BID PO Last administered on 07/18/16 09:16; Admin Dose 40 MG; Start 06/23/16 at 21:00 Hydralazine HCl (Apresoline) 20 mg Q4H PRN IV for SBP more than 170 Last administered on 07/18/16 15:01; Admin Dose 20 MG; Start 06/28/16 at 05:00 Ondansetron HCl (Zofran Inj) 4 mg Q6H PRN IV NAUSEA AND/OR VOMITING Last administered on 07/18/16 14:52; Admin Dose 4 MG; Start 06/28/16 at 05:00 Lorazepam (Ativan) 1 mg Q6H PRN IV ANXIETY Last administered on 07/18/16 01:18 ; Admin Dose 1 MG; Start 06/28/16 at 05:00 Cyclobenzaprine HCl (Flexeril) 10 mg TID PO Last administered on 07/18/16 13: 10; Admin Dose 10 MG; Start 07/03/16 at 21:00 Hydromorphone HCl (Dilaudid) 0.5 mg Q4H PRN IV PAIN Last administered on 15:38; Admin Dose 0.5 MG; Start 07/07/16 at 22:00 Hydromorphone HCl (Dilaudid) 1 mg Q3H PRN IV PAIN Last administered on 14:52; Admin Dose 1 MG; Start 07/07/16 at 22:00 Metoprolol Tartrate (Lopressor) 75 mg BID PO Last administered on 07/18/16 09: 16; Admin Dose 75 MG; Start 07/09/16 at 21:00 Isoniazid (Isoniazid) 300 mg DAILY PO Last administered on 07/18/16 09:15; Admin Dose 300 MG; Start 07/12/16 at 15:00 Rifampin (Rifampin) 600 mg DAILY PO Last administered on 07/18/16 09:15; Admin Dose 600 MG; Start 07/12/16 at 15:00 Clonidine (Catapres) 0.1 mg TID PO Last administered on 07/14/16 09:34; Admin Dose 0.1 MG; Start 07/13/16 at 21:00; Status Future Hold Ethambutol HCl (Myambutol) 1,200 mg TuThSa@18 PO Last administered on 18:00; Admin Dose 1,200 MG; Start 07/15/16 at 18:00 Pyrazinamide (Pyrazinamide) 1,500 mg TuThSa@18 PO Last administered on 18:00; Admin Dose 1,500 MG; Start 07/15/16 at 18:00 Pyridoxine HCl (Vitamin B6) 100 mg DAILY PO Last administered on 07/18/16 09: 15; Admin Dose 100 MG; Start 07/15/16 at 16:00 Doxazosin Mesylate (Cardura) 2 mg BID PO Last administered on 07/18/16 09:17; Admin Dose 2 MG; Start 07/16/16 at 21:00 Insulin Glargine (Lantus) 6 unit DAILY@20 SC Last administered on 07/17/16 21: 59; Admin Dose 6 UNIT; Start 07/17/16 at 20:00 Nifedipine (Procardia Xl) 60 mg BID PO Last administered on 07/18/16 09:17; Admin Dose 60 MG; Start 07/17/16 at 21:00 PAOLA MOODY MD Jul 18, 2016 18:10
--- NOTE | 2016-07-18 20:07 | PN ---
Date/Time of Note Date/Time of Note DATE: 07/18/16 TIME: 20:03 Assessment/Plan VTE Prophylaxis VTE Prophylaxis Intervention: SCD's Lines/Catheters IV C[facility] Type ([facility] PICC Line Central line still needed: Yes Urinary Cath still in place: No Assessment/Plan Chief Complaint/Hosp Course Assessment and plan - Anemia, status post blood transfusion, heparin is on hold, Dr. Borjas is following from gastroenterology consultation. - Recurrent pleural effusions. Dr. Martinez is following in thoracic surgery consultation. S/p VATS 06/30. Biopsy revealed granulomatous inflammation with focal necrosis and extensive hyalinization. Sputum for AFB negative 3. Continued on, on airborne isolation until cleared by department of health. Dr. Carl is following in infectious disease consultation. - Quantiferon Gold positive, prior Hx of TB per department of health, s/p treatment in 1998, continue TB therapy, contact isolation per ID. - Right pleural effusion, status post thoracentesis. Dr. Dale is following in pulmonology consultation. - End-stage renal disease, continue hemodialysis. Dr. Saunders is following in nephrology consultation. - Diabetes mellitus type 2, continue Lantus, pre-meal NovoLog and NovoLog per mild algorithm sliding scale. - Hypertension. Dr. De Santiago is following and cardiology consultation. Continue benazepril metoprolol hydralazine Procardia - Coronary artery disease, status post coronary artery bypass graft. - Permanent pacemaker. No acute issues. - Dyslipidemia. Continue Lipitor. Continue heparin for deep venous thrombosis prophylaxis and Protonix for peptic ulcer disease prophylaxis. Further recommendations based on clinical course. Plan of care discussed with Dr. Price. Problems: Subjective 24 Hr Interval Summary Free Text/Dictation Patient denies any shortness of breath, stable on telemetry, pain is well controlled. Exam/Review of Systems Vital Signs Vitals Vital Signs Date Time Temp Pulse Resp B/P Pulse Ox O2 Delivery O2 Flow Rate FiO2 07/18/16 16:53 69 07/18/16 15:47 164/70 07/18/16 12:10 98.0 18 94 07/15/16 16:00 Nasal Cannula Intake and Output 07/17/16 07/17/16 07/18/16 15:00 23:00 07:00 Intake Total 650 ml Balance 650 ml Exam Constitutional: alert Psych: no complaints Head: atraumatic, normocephalic Eyes: nl conjunctiva ENMT: nl external ears & nose Neck: non-tender, supple Respiratory: clear to auscultation. Cardiovascular: nl pulses Gastrointestinal: non-tender, soft Musculoskeletal: nl extremities to inspection Extremities: normal pulses Neurological: [employer] II-XII intact Skin: nl turgor Results Result Diagram: 07/18/16 0603 07/18/16 0605 Results 24 hrs Laboratory Tests Test 07/18/16 01:10 07/18/16 06:03 07/18/16 06:05 07/18/16 07:58 Bedside Glucose 109 126 Basophils # 0.1 Basophils % 1.8 Eosinophils # 0.7 H Eosinophils % 9.3 H Hematocrit 26.1 L Hemoglobin 8.7 L Lymphocytes # 1.0 Lymphocytes % 13.6 L Mean Corpuscular Hemoglobin 33.0 Mean Corpuscular Hemoglobin Concent 33.3 Mean Corpuscular Volume 98.9 Mean Platelet Volume 9.1 Monocytes # 0.9 Monocytes % 11.3 H Neutrophils # 4.9 Neutrophils % 63.7 Nucleated Red Blood Cells # 0.0 Nucleated Red Blood Cells % 0.0 Platelet Count 325 Red Blood Count 2.64 L Red Cell Distribution Width 12.9 White Blood Count 7.6 Anion Gap 14 Blood Urea Nitrogen 49 #H Calcium Level 10.2 Carbon Dioxide Level 29 Chloride Level 96 L Creatinine 8.13 H Glucose Level 126 # Potassium Level 5.0 Sodium Level 134 L Test 07/18/16 11:23 07/18/16 17:14 07/18/16 19:52 Bedside Glucose 169 138 160 Medications Medications Current Medications IV Flush (NS 10 ml) 10 ml PRN PRN IV FLUSH LINE; Start 06/13/16 at 19:00 Aspirin (Halfprin) 81 mg DAILY PO Last administered on 07/18/16 09:16; Admin Dose 81 MG; Start 06/14/16 at 09:00 Atorvastatin Calcium (Lipitor) 10 mg QHS PO Last administered on 07/17/16 20: 13; Admin Dose 10 MG; Start 06/14/16 at 21:00 Cholecalciferol (Vitamin D) 400 units DAILY PO Last administered on 07/18/16 09:16; Admin Dose 400 UNITS; Start 06/14/16 at 09:00 Ferrous Sulfate (Ferrous Sulfate (Ec)) 325 mg BID PO Last administered on 09:15; Admin Dose 325 MG; Start 06/14/16 at 09:00 Acetaminophen (Tylenol Tab) 500 mg Q4H PRN PO PAIN AND OR ELEVATED TEMP Last administered on 07/05/16 05:49; Admin Dose 500 MG; Start 06/14/16 at 00:00 Miscellaneous Information 1 ea NOTE XX Last administered on 06/18/16 07:57; Admin Dose 1 EA; Start 06/14/16 at 00:30 Glucose (Glutose) 15 gm Q15M PRN PO DECREASED GLUCOSE; Start 06/14/16 at 00:30 Glucose (Glutose) 22.5 gm Q15M PRN PO DECREASED GLUCOSE; Start 06/14/16 at 00: 30 Dextrose (D50w Syringe) 25 ml Q15M PRN IV DECREASED GLUCOSE Last administered on 07/17/16 12:47; Admin Dose 25 ML; Start 06/14/16 at 00:30 Dextrose (D50w Syringe) 50 ml Q15M PRN IV DECREASED GLUCOSE; Start 06/14/16 at 00:30 Glucagon (Glucagen) 1 mg Q15M PRN IM DECREASED GLUCOSE; Start 06/14/16 at 00:30 Glucose (Glutose) 15 gm Q15M PRN BUCCAL DECREASED GLUCOSE; Start 06/14/16 at 00 :30 Diagnostic Test (Pha) (Accucheck) 1 ea 02 XX Last administered on 07/11/16 01: 54; Admin Dose 1 EA; Start 06/14/16 at 02:00 Clonidine (Catapres) 0.2 mg Q8 PRN PO Systolic >160 Last administered on 02:29; Admin Dose 0.2 MG; Start 06/14/16 at 13:00 Promethazine HCl/ Codeine (Phenergan/ Codeine) 5 ml Q4H PRN PO COUGH Last administered on 06/21/16 18:04; Admin Dose 5 ML; Start 06/15/16 at 00:00 Pantoprazole (Protonix Tab) 40 mg DAILY@06 PO Last administered on 07/18/16 05 :16; Admin Dose 40 MG; Start 06/16/16 at 06:00 Diphenhydramine HCl (Benadryl) 25 mg HS PRN PO INSOMNIA Last administered on 00:09; Admin Dose 25 MG; Start 06/15/16 at 21:30 Hydralazine HCl (Apresoline) 100 mg Q8 PO Last administered on 07/18/16 13:11 ; Admin Dose 100 MG; Start 06/19/16 at 13:00 Bisacodyl (Dulcolax) 10 mg DAILY PRN PO CONSTIPATION Last administered on 22:38; Admin Dose 10 MG; Start 06/22/16 at 11:30 Benazepril HCl (Lotensin) 40 mg BID PO Last administered on 07/18/16 09:16; Admin Dose 40 MG; Start 06/23/16 at 21:00 Hydralazine HCl (Apresoline) 20 mg Q4H PRN IV for SBP more than 170 Last administered on 07/18/16 15:01; Admin Dose 20 MG; Start 06/28/16 at 05:00 Ondansetron HCl (Zofran Inj) 4 mg Q6H PRN IV NAUSEA AND/OR VOMITING Last administered on 07/18/16 14:52; Admin Dose 4 MG; Start 06/28/16 at 05:00 Lorazepam (Ativan) 1 mg Q6H PRN IV ANXIETY Last administered on 07/18/16 01:18 ; Admin Dose 1 MG; Start 06/28/16 at 05:00 Cyclobenzaprine HCl (Flexeril) 10 mg TID PO Last administered on 07/18/16 13: 10; Admin Dose 10 MG; Start 07/03/16 at 21:00 Hydromorphone HCl (Dilaudid) 0.5 mg Q4H PRN IV PAIN Last administered on 15:38; Admin Dose 0.5 MG; Start 07/07/16 at 22:00 Hydromorphone HCl (Dilaudid) 1 mg Q3H PRN IV PAIN Last administered on 14:52; Admin Dose 1 MG; Start 07/07/16 at 22:00 Metoprolol Tartrate (Lopressor) 75 mg BID PO Last administered on 07/18/16 09: 16; Admin Dose 75 MG; Start 07/09/16 at 21:00 Isoniazid (Isoniazid) 300 mg DAILY PO Last administered on 07/18/16 09:15; Admin Dose 300 MG; Start 07/12/16 at 15:00 Rifampin (Rifampin) 600 mg DAILY PO Last administered on 07/18/16 09:15; Admin Dose 600 MG; Start 07/12/16 at 15:00 Clonidine (Catapres) 0.1 mg TID PO Last administered on 07/14/16 09:34; Admin Dose 0.1 MG; Start 07/13/16 at 21:00; Status Future Hold Ethambutol HCl (Myambutol) 1,200 mg TuThSa@18 PO Last administered on 18:00; Admin Dose 1,200 MG; Start 07/15/16 at 18:00 Pyrazinamide (Pyrazinamide) 1,500 mg TuThSa@18 PO Last administered on 18:00; Admin Dose 1,500 MG; Start 07/15/16 at 18:00 Pyridoxine HCl (Vitamin B6) 100 mg DAILY PO Last administered on 07/18/16 09: 15; Admin Dose 100 MG; Start 07/15/16 at 16:00 Doxazosin Mesylate (Cardura) 2 mg BID PO Last administered on 07/18/16 09:17; Admin Dose 2 MG; Start 07/16/16 at 21:00 Insulin Glargine (Lantus) 6 unit DAILY@20 SC Last administered on 07/17/16 21: 59; Admin Dose 6 UNIT; Start 07/17/16 at 20:00 Nifedipine (Procardia Xl) 60 mg BID PO Last administered on 07/18/16 09:17; Admin Dose 60 MG; Start 07/17/16 at 21:00 CECILIA DAMICO Jul 18, 2016 20:06
[2016-07-18] MEDS: ATORVASTATIN 10 MG TAB PO SCH (21:24)
[2016-07-18] MEDS: INSULIN GLARGINE [LANtus] 3 ML PEN SC SCH (21:27)
[2016-07-19] VITALS (19 sets, daily range): BP systolic 113–193; BP diastolic 58–96; PULSE 69–96; RESP 17–18
[2016-07-19] MEDS: PANTOPRAZOLE (EC) 40 MG TAB PO SCH (05:09)
[2016-07-19 07:40] LABS: ADD SCAN DIFF NO
[2016-07-19 07:43] LABS: BASOPHIL # 0.1 10^3/ul (0.0-0.1); BASOPHILS % 1.7 % (0.0-2.0); EOSINOPHILS # 0.6 10^3/ul (0.0-0.5); EOSINOPHILS % 8.4 % (0.0-7.0); HEMATOCRIT 27.4 % (42.0-52.0); LYMPHOCYTES # 0.9 10^3/ul (0.8-2.9); LYMPHOCYTES % 12.7 % (15.0-51.0); MEAN CORPUSCULAR HEMOGLOBIN 31.8 pg (29.0-33.0); MEAN CORPUSCULAR HGB CONC 32.8 g/dl (32.0-37.0); MEAN CORPUSCULAR VOLUME 96.8 fl (82.0-101.0); MEAN PLATELET VOLUME 9.1 fl (7.4-10.4); MONOCYTE # 0.8 10^3/ul (0.3-0.9); MONOCYTES % 11.3 % (0.0-11.0); NEUTROPHIL # 4.6 10^3/ul (1.6-7.5); NEUTROPHILS % 65.6 % (39.0-77.0); PLATELET COUNT 304 10^3/UL (140-415); RED BLOOD COUNT 2.83 10^6/ul (4.70-6.10); RED CELL DISTRIBUTION WIDTH 12.9 % (11.5-14.5)
[2016-07-19 07:57] LABS: POTASSIUM 4.3 mmol/L (3.5-5.1)
[2016-07-19 08:00] LABS: CREATININE 7.53 mg/dl (0.61-1.24)
[2016-07-19] MEDS: ACCU-CHEK XX SCH ×4 (08:00→21:45)
[2016-07-19 08:01] LABS: CALCIUM 9.8 mg/dl (8.4-10.2)
[2016-07-19] MEDS: SEVELAMER CARBONATE 0.8 GM PKT PO SCH ×3 (09:30→21:34)
[2016-07-19] MEDS: PYRIDOXINE 50 MG TAB PO SCH (09:33)
[2016-07-19] MEDS: DOXAZOSIN 2 MG TAB PO SCH ×2 (09:33→21:35)
[2016-07-19] MEDS: NIFEdipine (XL) 60 MG TAB PO SCH ×2 (09:33→21:35)
[2016-07-19] MEDS: RIFAMPIN 300 MG CAP PO SCH (09:33)
[2016-07-19] MEDS: CALCIUM ACETATE 667 MG CAP PO SCH ×3 (09:34→21:33)
[2016-07-19] MEDS: FERROUS SULFATE (EC) 325 MG TAB PO SCH ×2 (09:34→21:33)
[2016-07-19] MEDS: ISONIAZID 300 MG TAB PO SCH (09:34)
[2016-07-19] MEDS: METOPROLOL 25 MG TAB PO SCH ×2 (09:34→21:35)
[2016-07-19] MEDS: ASPIRIN (EC) 81 MG TAB PO SCH (09:35)
[2016-07-19] MEDS: BENAZEPRIL 40 MG TAB PO SCH ×2 (09:35→21:36)
[2016-07-19] MEDS: CHOLECALCIFEROL 400 UNITS TAB PO SCH (09:35)
[2016-07-19] MEDS: CYCLOBENZAPRINE 10 MG TAB PO SCH ×3 (09:35→21:33)
[2016-07-19] MEDS: INSULIN ASPART [NOVOLOG] 3 ML PEN SC SCH ×7 (09:39→20:40)
[2016-07-19] MEDS: BISACODYL (EC) 5 MG TAB PO PRN (10:33)
--- NOTE | 2016-07-19 12:07 | CONS ---
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 tuberculosis DNA probe to the 1st sputum sample was undetectable - s/p R VATS, total pulmonary decortication, R pleurodesis on 06/30/2016. Biopsy was negative for fungal stain and AFB stain (micro lab and pathology department), as well as malignancy. It showed granulomatous inflammation with focal necrosis and extensive hyalinization. Chest tube was removed - h/o recurrent pleural effusion requiring thoracentesis approximately once a year, last performed in 04/2016 prior to this admission - positive quantiferon TB gold status of unknown duration. Per Pt, his past PPD was done in 2013, and was negative. 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 - DM - ESRD on HD - CAD s/p CABG in 2010 and cardiac stent in 2013 - HIV screen negative in 07/2016 tested at [facility] - RUQ pain recommendations - Pt c/o RUQ pain (below the diaphragm, not on the chest/thorax). Check LFTs in AM. Ordered RUQ ultrasound. - continue renally dosed RIPE plus vitamin B6 supplement (07/12/2016-), scripts on the chart. - will discuss with TB control next week re. his RUQ pain and if TB meds need to be adjusted. management d/w Pt and his RN Problems: Consultation Date/Type/Reason Admit Date/Time Jun 13, 2016 at 14:48 Initial Consult Date 07/04/16 Type of Consultation: ID Referring Provider: EVA COX MD 24 HR Interval Summary Constitutional: no complaints Detailed Summary Eyes: no complaints ENT: no complaints Respiratory: no complaints Cardiovascular: no complaints Gastrointestinal: pain (RUQ), No diarrhea, No nausea Genitourinary: other (HD) Musculoskeletal: no complaints Skin: no complaints Exam/Review of Systems Vital Signs Vitals Vital Signs Date Time Temp Pulse Resp B/P Pulse Ox O2 Delivery O2 Flow Rate FiO2 07/19/16 11:46 97.5 70 18 146/67 97 07/15/16 16:00 Nasal Cannula Exam Constitutional: alert, frail Psych: nl mood/affect, no complaints Head: atraumatic, normocephalic Eyes: nl conjunctiva, nl lids, nl sclera, No icteric ENMT: nl external ears & nose, nl nasal mucosa & septum Neck: supple Respiratory: clear to auscultation, normal air movement Cardiovascular: nl pulses, regular rate and rhythm Gastrointestinal: tender (RUQ without rebound) Results Result Diagram: 07/19/16 0638 07/19/16 0638 Results 24 hrs Laboratory Tests Test 07/18/16 17:14 07/18/16 19:52 07/19/16 06:38 07/19/16 08:32 Bedside Glucose 138 160 150 Anion Gap 14 Basophils # 0.1 Basophils % 1.7 Blood Urea Nitrogen 54 H Calcium Level 9.8 Carbon Dioxide Level 29 Chloride Level 95 L Creatinine 7.53 H Eosinophils # 0.6 H Eosinophils % 8.4 H Glucose Level 119 Hematocrit 27.4 L Hemoglobin 9.0 L Lymphocytes # 0.9 Lymphocytes % 12.7 L Mean Corpuscular Hemoglobin 31.8 Mean Corpuscular Hemoglobin Concent 32.8 Mean Corpuscular Volume 96.8 Mean Platelet Volume 9.1 Monocytes # 0.8 Monocytes % 11.3 H Neutrophils # 4.6 Neutrophils % 65.6 Nucleated Red Blood Cells # 0.0 Nucleated Red Blood Cells % 0.0 Platelet Count 304 Potassium Level 4.3 Red Blood Count 2.83 L Red Cell Distribution Width 12.9 Sodium Level 134 L White Blood Count 7.0 Medications Medications Current Medications IV Flush (NS 10 ml) 10 ml PRN PRN IV FLUSH LINE; Start 06/13/16 at 19:00 Aspirin (Halfprin) 81 mg DAILY PO Last administered on 07/19/16 09:35; Admin Dose 81 MG; Start 06/14/16 at 09:00 Atorvastatin Calcium (Lipitor) 10 mg QHS PO Last administered on 07/18/16 21: 24; Admin Dose 10 MG; Start 06/14/16 at 21:00 Cholecalciferol (Vitamin D) 400 units DAILY PO Last administered on 07/19/16 09:35; Admin Dose 400 UNITS; Start 06/14/16 at 09:00 Ferrous Sulfate (Ferrous Sulfate (Ec)) 325 mg BID PO Last administered on 09:34; Admin Dose 325 MG; Start 06/14/16 at 09:00 Acetaminophen (Tylenol Tab) 500 mg Q4H PRN PO PAIN AND OR ELEVATED TEMP Last administered on 07/05/16 05:49; Admin Dose 500 MG; Start 06/14/16 at 00:00 Miscellaneous Information 1 ea NOTE XX Last administered on 06/18/16 07:57; Admin Dose 1 EA; Start 06/14/16 at 00:30 Glucose (Glutose) 15 gm Q15M PRN PO DECREASED GLUCOSE; Start 06/14/16 at 00:30 Glucose (Glutose) 22.5 gm Q15M PRN PO DECREASED GLUCOSE; Start 06/14/16 at 00: 30 Dextrose (D50w Syringe) 25 ml Q15M PRN IV DECREASED GLUCOSE Last administered on 07/17/16 12:47; Admin Dose 25 ML; Start 06/14/16 at 00:30 Dextrose (D50w Syringe) 50 ml Q15M PRN IV DECREASED GLUCOSE; Start 06/14/16 at 00:30 Glucagon (Glucagen) 1 mg Q15M PRN IM DECREASED GLUCOSE; Start 06/14/16 at 00:30 Glucose (Glutose) 15 gm Q15M PRN BUCCAL DECREASED GLUCOSE; Start 06/14/16 at 00 :30 Diagnostic Test (Pha) (Accucheck) 1 ea 02 XX Last administered on 07/11/16 01: 54; Admin Dose 1 EA; Start 06/14/16 at 02:00 Clonidine (Catapres) 0.2 mg Q8 PRN PO Systolic >160 Last administered on 02:29; Admin Dose 0.2 MG; Start 06/14/16 at 13:00 Promethazine HCl/ Codeine (Phenergan/ Codeine) 5 ml Q4H PRN PO COUGH Last administered on 06/21/16 18:04; Admin Dose 5 ML; Start 06/15/16 at 00:00 Pantoprazole (Protonix Tab) 40 mg DAILY@06 PO Last administered on 07/19/16 05 :09; Admin Dose 40 MG; Start 06/16/16 at 06:00 Diphenhydramine HCl (Benadryl) 25 mg HS PRN PO INSOMNIA Last administered on 00:09; Admin Dose 25 MG; Start 06/15/16 at 21:30 Hydralazine HCl (Apresoline) 100 mg Q8 PO Last administered on 07/19/16 09:34 ; Admin Dose 100 MG; Start 06/19/16 at 13:00 Bisacodyl (Dulcolax) 10 mg DAILY PRN PO CONSTIPATION Last administered on 10:33; Admin Dose 10 MG; Start 06/22/16 at 11:30 Benazepril HCl (Lotensin) 40 mg BID PO Last administered on 07/19/16 09:35; Admin Dose 40 MG; Start 06/23/16 at 21:00 Hydralazine HCl (Apresoline) 20 mg Q4H PRN IV for SBP more than 170 Last administered on 07/18/16 15:01; Admin Dose 20 MG; Start 06/28/16 at 05:00 Ondansetron HCl (Zofran Inj) 4 mg Q6H PRN IV NAUSEA AND/OR VOMITING Last administered on 07/18/16 14:52; Admin Dose 4 MG; Start 06/28/16 at 05:00 Lorazepam (Ativan) 1 mg Q6H PRN IV ANXIETY Last administered on 07/18/16 21:38 ; Admin Dose 1 MG; Start 06/28/16 at 05:00 Cyclobenzaprine HCl (Flexeril) 10 mg TID PO Last administered on 07/19/16 09: 35; Admin Dose 10 MG; Start 07/03/16 at 21:00 Hydromorphone HCl (Dilaudid) 0.5 mg Q4H PRN IV PAIN Last administered on 15:38; Admin Dose 0.5 MG; Start 07/07/16 at 22:00 Hydromorphone HCl (Dilaudid) 1 mg Q3H PRN IV PAIN Last administered on 14:52; Admin Dose 1 MG; Start 07/07/16 at 22:00 Metoprolol Tartrate (Lopressor) 75 mg BID PO Last administered on 07/19/16 09: 34; Admin Dose 75 MG; Start 07/09/16 at 21:00 Isoniazid (Isoniazid) 300 mg DAILY PO Last administered on 07/19/16 09:34; Admin Dose 300 MG; Start 07/12/16 at 15:00 Rifampin (Rifampin) 600 mg DAILY PO Last administered on 07/19/16 09:33; Admin Dose 600 MG; Start 07/12/16 at 15:00 Clonidine (Catapres) 0.1 mg TID PO Last administered on 07/14/16 09:34; Admin Dose 0.1 MG; Start 07/13/16 at 21:00; Status Future Hold Ethambutol HCl (Myambutol) 1,200 mg TuThSa@18 PO Last administered on 18:00; Admin Dose 1,200 MG; Start 07/15/16 at 18:00 Pyrazinamide (Pyrazinamide) 1,500 mg TuThSa@18 PO Last administered on 18:00; Admin Dose 1,500 MG; Start 07/15/16 at 18:00 Pyridoxine HCl (Vitamin B6) 100 mg DAILY PO Last administered on 07/19/16 09: 33; Admin Dose 100 MG; Start 07/15/16 at 16:00 Doxazosin Mesylate (Cardura) 2 mg BID PO Last administered on 07/19/16 09:33; Admin Dose 2 MG; Start 07/16/16 at 21:00 Insulin Glargine (Lantus) 6 unit DAILY@20 SC Last administered on 07/18/16 21: 27; Admin Dose 6 UNIT; Start 07/17/16 at 20:00 Nifedipine (Procardia Xl) 60 mg BID PO Last administered on 07/19/16 09:33; Admin Dose 60 MG; Start 07/17/16 at 21:00 YUMIKO NICHOLSON M.D. Jul 19, 2016 12:06
--- NOTE | 2016-07-19 12:26 | PN ---
Date/Time of Note Date/Time of Note DATE: 07/19/16 TIME: 12:25 Assessment/Plan VTE Prophylaxis VTE Prophylaxis Intervention: other Lines/Catheters IV [facility] Type (from [facility] PICC Line Central line still needed: Yes Urinary Cath still in place: No Assessment/Plan Chief Complaint/Hosp Course - Anemia, status post blood transfusion, heparin is on hold, Dr. Borjas is following from gastroenterology consultation. - Recurrent pleural effusions. Dr. Martinez is following in thoracic surgery consultation. S/p VATS 06/30. Biopsy revealed granulomatous inflammation with focal necrosis and extensive hyalinization. Sputum for AFB negative 3. Continued on, on airborne isolation until cleared by department of health. Dr. Carl is following in infectious disease consultation. - Quantiferon Gold positive, prior Hx of TB per department of health, s/p treatment in 1998, continue TB therapy, contact isolation per ID. - Right pleural effusion, status post thoracentesis. Dr. Dale is following in pulmonology consultation. - End-stage renal disease, continue hemodialysis. Dr. Saunders is following in nephrology consultation. - Diabetes mellitus type 2, continue Lantus, pre-meal NovoLog and NovoLog per mild algorithm sliding scale. - Hypertension. Dr. De Santiago is following and cardiology consultation. Continue benazepril metoprolol hydralazine Procardia - Coronary artery disease, status post coronary artery bypass graft. - Permanent pacemaker. No acute issues. - Dyslipidemia. Continue Lipitor. Problems: Subjective 24 Hr Interval Summary Free Text/Dictation Patient has no complaints Exam/Review of Systems Vital Signs Vitals Vital Signs Date Time Temp Pulse Resp B/P Pulse Ox O2 Delivery O2 Flow Rate FiO2 07/19/16 11:46 97.5 70 18 146/67 97 07/15/16 16:00 Nasal Cannula Exam Constitutional: well developed Head: atraumatic, normocephalic Neck: supple Respiratory: diminished breath sounds Cardiovascular: regular rate and rhythm Gastrointestinal: non-tender, soft Extremities: normal pulses Results Result Diagram: 07/19/16 0638 07/19/16 0638 Results 24 hrs Laboratory Tests Test 07/18/16 17:14 07/18/16 19:52 07/19/16 06:38 07/19/16 08:32 Bedside Glucose 138 160 150 Anion Gap 14 Basophils # 0.1 Basophils % 1.7 Blood Urea Nitrogen 54 H Calcium Level 9.8 Carbon Dioxide Level 29 Chloride Level 95 L Creatinine 7.53 H Eosinophils # 0.6 H Eosinophils % 8.4 H Glucose Level 119 Hematocrit 27.4 L Hemoglobin 9.0 L Lymphocytes # 0.9 Lymphocytes % 12.7 L Mean Corpuscular Hemoglobin 31.8 Mean Corpuscular Hemoglobin Concent 32.8 Mean Corpuscular Volume 96.8 Mean Platelet Volume 9.1 Monocytes # 0.8 Monocytes % 11.3 H Neutrophils # 4.6 Neutrophils % 65.6 Nucleated Red Blood Cells # 0.0 Nucleated Red Blood Cells % 0.0 Platelet Count 304 Potassium Level 4.3 Red Blood Count 2.83 L Red Cell Distribution Width 12.9 Sodium Level 134 L White Blood Count 7.0 Medications Medications Current Medications IV Flush (NS 10 ml) 10 ml PRN PRN IV FLUSH LINE; Start 06/13/16 at 19:00 Aspirin (Halfprin) 81 mg DAILY PO Last administered on 07/19/16 09:35; Admin Dose 81 MG; Start 06/14/16 at 09:00 Atorvastatin Calcium (Lipitor) 10 mg QHS PO Last administered on 07/18/16 21: 24; Admin Dose 10 MG; Start 06/14/16 at 21:00 Cholecalciferol (Vitamin D) 400 units DAILY PO Last administered on 07/19/16 09:35; Admin Dose 400 UNITS; Start 06/14/16 at 09:00 Ferrous Sulfate (Ferrous Sulfate (Ec)) 325 mg BID PO Last administered on 09:34; Admin Dose 325 MG; Start 06/14/16 at 09:00 Acetaminophen (Tylenol Tab) 500 mg Q4H PRN PO PAIN AND OR ELEVATED TEMP Last administered on 07/05/16 05:49; Admin Dose 500 MG; Start 06/14/16 at 00:00 Miscellaneous Information 1 ea NOTE XX Last administered on 06/18/16 07:57; Admin Dose 1 EA; Start 06/14/16 at 00:30 Glucose (Glutose) 15 gm Q15M PRN PO DECREASED GLUCOSE; Start 06/14/16 at 00:30 Glucose (Glutose) 22.5 gm Q15M PRN PO DECREASED GLUCOSE; Start 06/14/16 at 00: 30 Dextrose (D50w Syringe) 25 ml Q15M PRN IV DECREASED GLUCOSE Last administered on 07/17/16 12:47; Admin Dose 25 ML; Start 06/14/16 at 00:30 Dextrose (D50w Syringe) 50 ml Q15M PRN IV DECREASED GLUCOSE; Start 06/14/16 at 00:30 Glucagon (Glucagen) 1 mg Q15M PRN IM DECREASED GLUCOSE; Start 06/14/16 at 00:30 Glucose (Glutose) 15 gm Q15M PRN BUCCAL DECREASED GLUCOSE; Start 06/14/16 at 00 :30 Diagnostic Test (Pha) (Accucheck) 1 ea 02 XX Last administered on 07/11/16 01: 54; Admin Dose 1 EA; Start 06/14/16 at 02:00 Clonidine (Catapres) 0.2 mg Q8 PRN PO Systolic >160 Last administered on 02:29; Admin Dose 0.2 MG; Start 06/14/16 at 13:00 Promethazine HCl/ Codeine (Phenergan/ Codeine) 5 ml Q4H PRN PO COUGH Last administered on 06/21/16 18:04; Admin Dose 5 ML; Start 06/15/16 at 00:00 Pantoprazole (Protonix Tab) 40 mg DAILY@06 PO Last administered on 07/19/16 05 :09; Admin Dose 40 MG; Start 06/16/16 at 06:00 Diphenhydramine HCl (Benadryl) 25 mg HS PRN PO INSOMNIA Last administered on 00:09; Admin Dose 25 MG; Start 06/15/16 at 21:30 Hydralazine HCl (Apresoline) 100 mg Q8 PO Last administered on 07/19/16 09:34 ; Admin Dose 100 MG; Start 06/19/16 at 13:00 Bisacodyl (Dulcolax) 10 mg DAILY PRN PO CONSTIPATION Last administered on 10:33; Admin Dose 10 MG; Start 06/22/16 at 11:30 Benazepril HCl (Lotensin) 40 mg BID PO Last administered on 07/19/16 09:35; Admin Dose 40 MG; Start 06/23/16 at 21:00 Hydralazine HCl (Apresoline) 20 mg Q4H PRN IV for SBP more than 170 Last administered on 07/18/16 15:01; Admin Dose 20 MG; Start 06/28/16 at 05:00 Ondansetron HCl (Zofran Inj) 4 mg Q6H PRN IV NAUSEA AND/OR VOMITING Last administered on 07/18/16 14:52; Admin Dose 4 MG; Start 06/28/16 at 05:00 Lorazepam (Ativan) 1 mg Q6H PRN IV ANXIETY Last administered on 07/18/16 21:38 ; Admin Dose 1 MG; Start 06/28/16 at 05:00 Cyclobenzaprine HCl (Flexeril) 10 mg TID PO Last administered on 07/19/16 09: 35; Admin Dose 10 MG; Start 07/03/16 at 21:00 Hydromorphone HCl (Dilaudid) 0.5 mg Q4H PRN IV PAIN Last administered on 15:38; Admin Dose 0.5 MG; Start 07/07/16 at 22:00 Hydromorphone HCl (Dilaudid) 1 mg Q3H PRN IV PAIN Last administered on 14:52; Admin Dose 1 MG; Start 07/07/16 at 22:00 Metoprolol Tartrate (Lopressor) 75 mg BID PO Last administered on 07/19/16 09: 34; Admin Dose 75 MG; Start 07/09/16 at 21:00 Isoniazid (Isoniazid) 300 mg DAILY PO Last administered on 07/19/16 09:34; Admin Dose 300 MG; Start 07/12/16 at 15:00 Rifampin (Rifampin) 600 mg DAILY PO Last administered on 07/19/16 09:33; Admin Dose 600 MG; Start 07/12/16 at 15:00 Clonidine (Catapres) 0.1 mg TID PO Last administered on 07/14/16 09:34; Admin Dose 0.1 MG; Start 07/13/16 at 21:00; Status Future Hold Ethambutol HCl (Myambutol) 1,200 mg TuThSa@18 PO Last administered on 18:00; Admin Dose 1,200 MG; Start 07/15/16 at 18:00 Pyrazinamide (Pyrazinamide) 1,500 mg TuThSa@18 PO Last administered on 18:00; Admin Dose 1,500 MG; Start 07/15/16 at 18:00 Pyridoxine HCl (Vitamin B6) 100 mg DAILY PO Last administered on 07/19/16 09: 33; Admin Dose 100 MG; Start 07/15/16 at 16:00 Doxazosin Mesylate (Cardura) 2 mg BID PO Last administered on 07/19/16 09:33; Admin Dose 2 MG; Start 07/16/16 at 21:00 Insulin Glargine (Lantus) 6 unit DAILY@20 SC Last administered on 07/18/16 21: 27; Admin Dose 6 UNIT; Start 07/17/16 at 20:00 Nifedipine (Procardia Xl) 60 mg BID PO Last administered on 07/19/16 09:33; Admin Dose 60 MG; Start 07/17/16 at 21:00 HELEN SHARP 18, 2017 12:26
[2016-07-19] MEDS: HYDROmorphONE 1 MG/ML SYG IV PRN ×2 (13:13→20:50)
[2016-07-19] MEDS: LEVALBUTEROL (HFA) 15 GM INHALER INH SCH ×3 (13:16→18:42)
--- NOTE | 2016-07-19 13:53 | CONS ---
Date/Time of Note Date/Time of Note DATE: 07/19/16 TIME: 13:46 Assessment/Plan Assessment/Plan Chief Complaint/Hosp Course 1.ESRD, HD dependent 2. HTN, controlled 3. PNEUMONIA better 4. PLEURAL EFFUSION s/p vats ctube out 5. TB GOLD TEST +r/o ptb, pt is airborne isolation 6. ANEMIA, chronic disease 7. Fluid restriction Problems: Additional Assessment/Plan 1. Continue a/b 2. Continue HD 3. Diagnostic to clear pt TB Consultation Date/Type/Reason Admit Date/Time Jun 13, 2016 at 14:48 Initial Consult Date 07/04/16 Type of Consultation: nephrology Reason for Consultation Nephrology consult for dr Saunders Referring Provider: EVA COX MD 24 HR Interval Summary Constitutional: no complaints Exam/Review of Systems Vital Signs Vitals Vital Signs Date Time Temp Pulse Resp B/P Pulse Ox O2 Delivery O2 Flow Rate FiO2 07/19/16 12:39 69 07/19/16 11:46 97.5 18 146/67 97 07/15/16 16:00 Nasal Cannula Exam Constitutional: alert, oriented Psych: no complaints Head: normocephalic Eyes: nl conjunctiva ENMT: nl external ears & nose Neck: supple Respiratory: diminished breath sounds Cardiovascular: regular rate and rhythm Gastrointestinal: soft Genitourinary - Male: nl penis Musculoskeletal: muscle weakness Extremities: other (AV fistula left arm) 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 Results Result Diagram: 07/19/16 0638 07/19/16 0638 Results 24 hrs Laboratory Tests Test 07/18/16 17:14 07/18/16 19:52 07/19/16 06:38 07/19/16 08:32 Bedside Glucose 138 160 150 Anion Gap 14 Basophils # 0.1 Basophils % 1.7 Blood Urea Nitrogen 54 H Calcium Level 9.8 Carbon Dioxide Level 29 Chloride Level 95 L Creatinine 7.53 H Eosinophils # 0.6 H Eosinophils % 8.4 H Glucose Level 119 Hematocrit 27.4 L Hemoglobin 9.0 L Lymphocytes # 0.9 Lymphocytes % 12.7 L Mean Corpuscular Hemoglobin 31.8 Mean Corpuscular Hemoglobin Concent 32.8 Mean Corpuscular Volume 96.8 Mean Platelet Volume 9.1 Monocytes # 0.8 Monocytes % 11.3 H Neutrophils # 4.6 Neutrophils % 65.6 Nucleated Red Blood Cells # 0.0 Nucleated Red Blood Cells % 0.0 Platelet Count 304 Potassium Level 4.3 Red Blood Count 2.83 L Red Cell Distribution Width 12.9 Sodium Level 134 L White Blood Count 7.0 Test 07/19/16 13:05 Bedside Glucose 173 Medications Medications Current Medications IV Flush (NS 10 ml) 10 ml PRN PRN IV FLUSH LINE; Start 06/13/16 at 19:00 Aspirin (Halfprin) 81 mg DAILY PO Last administered on 07/19/16 09:35; Admin Dose 81 MG; Start 06/14/16 at 09:00 Atorvastatin Calcium (Lipitor) 10 mg QHS PO Last administered on 07/18/16 21: 24; Admin Dose 10 MG; Start 06/14/16 at 21:00 Cholecalciferol (Vitamin D) 400 units DAILY PO Last administered on 07/19/16 09:35; Admin Dose 400 UNITS; Start 06/14/16 at 09:00 Ferrous Sulfate (Ferrous Sulfate (Ec)) 325 mg BID PO Last administered on 09:34; Admin Dose 325 MG; Start 06/14/16 at 09:00 Acetaminophen (Tylenol Tab) 500 mg Q4H PRN PO PAIN AND OR ELEVATED TEMP Last administered on 07/05/16 05:49; Admin Dose 500 MG; Start 06/14/16 at 00:00 Miscellaneous Information 1 ea NOTE XX Last administered on 06/18/16 07:57; Admin Dose 1 EA; Start 06/14/16 at 00:30 Glucose (Glutose) 15 gm Q15M PRN PO DECREASED GLUCOSE; Start 06/14/16 at 00:30 Glucose (Glutose) 22.5 gm Q15M PRN PO DECREASED GLUCOSE; Start 06/14/16 at 00: 30 Dextrose (D50w Syringe) 25 ml Q15M PRN IV DECREASED GLUCOSE Last administered on 07/17/16 12:47; Admin Dose 25 ML; Start 06/14/16 at 00:30 Dextrose (D50w Syringe) 50 ml Q15M PRN IV DECREASED GLUCOSE; Start 06/14/16 at 00:30 Glucagon (Glucagen) 1 mg Q15M PRN IM DECREASED GLUCOSE; Start 06/14/16 at 00:30 Glucose (Glutose) 15 gm Q15M PRN BUCCAL DECREASED GLUCOSE; Start 06/14/16 at 00 :30 Diagnostic Test (Pha) (Accucheck) 1 ea 02 XX Last administered on 07/11/16 01: 54; Admin Dose 1 EA; Start 06/14/16 at 02:00 Clonidine (Catapres) 0.2 mg Q8 PRN PO Systolic >160 Last administered on 02:29; Admin Dose 0.2 MG; Start 06/14/16 at 13:00 Promethazine HCl/ Codeine (Phenergan/ Codeine) 5 ml Q4H PRN PO COUGH Last administered on 06/21/16 18:04; Admin Dose 5 ML; Start 06/15/16 at 00:00 Pantoprazole (Protonix Tab) 40 mg DAILY@06 PO Last administered on 07/19/16 05 :09; Admin Dose 40 MG; Start 06/16/16 at 06:00 Diphenhydramine HCl (Benadryl) 25 mg HS PRN PO INSOMNIA Last administered on 00:09; Admin Dose 25 MG; Start 06/15/16 at 21:30 Hydralazine HCl (Apresoline) 100 mg Q8 PO Last administered on 07/19/16 09:34 ; Admin Dose 100 MG; Start 06/19/16 at 13:00 Bisacodyl (Dulcolax) 10 mg DAILY PRN PO CONSTIPATION Last administered on 10:33; Admin Dose 10 MG; Start 06/22/16 at 11:30 Benazepril HCl (Lotensin) 40 mg BID PO Last administered on 07/19/16 09:35; Admin Dose 40 MG; Start 06/23/16 at 21:00 Hydralazine HCl (Apresoline) 20 mg Q4H PRN IV for SBP more than 170 Last administered on 07/18/16 15:01; Admin Dose 20 MG; Start 06/28/16 at 05:00 Ondansetron HCl (Zofran Inj) 4 mg Q6H PRN IV NAUSEA AND/OR VOMITING Last administered on 07/18/16 14:52; Admin Dose 4 MG; Start 06/28/16 at 05:00 Lorazepam (Ativan) 1 mg Q6H PRN IV ANXIETY Last administered on 07/18/16 21:38 ; Admin Dose 1 MG; Start 06/28/16 at 05:00 Cyclobenzaprine HCl (Flexeril) 10 mg TID PO Last administered on 07/19/16 13: 05; Admin Dose 10 MG; Start 07/03/16 at 21:00 Hydromorphone HCl (Dilaudid) 0.5 mg Q4H PRN IV PAIN Last administered on 15:38; Admin Dose 0.5 MG; Start 07/07/16 at 22:00 Hydromorphone HCl (Dilaudid) 1 mg Q3H PRN IV PAIN Last administered on 13:13; Admin Dose 1 MG; Start 07/07/16 at 22:00 Metoprolol Tartrate (Lopressor) 75 mg BID PO Last administered on 07/19/16 09: 34; Admin Dose 75 MG; Start 07/09/16 at 21:00 Isoniazid (Isoniazid) 300 mg DAILY PO Last administered on 07/19/16 09:34; Admin Dose 300 MG; Start 07/12/16 at 15:00 Rifampin (Rifampin) 600 mg DAILY PO Last administered on 07/19/16 09:33; Admin Dose 600 MG; Start 07/12/16 at 15:00 Clonidine (Catapres) 0.1 mg TID PO Last administered on 07/14/16 09:34; Admin Dose 0.1 MG; Start 07/13/16 at 21:00; Status Future Hold Ethambutol HCl (Myambutol) 1,200 mg TuThSa@18 PO Last administered on 18:00; Admin Dose 1,200 MG; Start 07/15/16 at 18:00 Pyrazinamide (Pyrazinamide) 1,500 mg TuThSa@18 PO Last administered on 18:00; Admin Dose 1,500 MG; Start 07/15/16 at 18:00 Pyridoxine HCl (Vitamin B6) 100 mg DAILY PO Last administered on 07/19/16 09: 33; Admin Dose 100 MG; Start 07/15/16 at 16:00 Doxazosin Mesylate (Cardura) 2 mg BID PO Last administered on 07/19/16 09:33; Admin Dose 2 MG; Start 3/15/17 at 21:00 Insulin Glargine (Lantus) 6 unit DAILY@20 SC Last administered on 07/18/16 21: 27; Admin Dose 6 UNIT; Start 07/17/16 at 20:00 Nifedipine (Procardia Xl) 60 mg BID PO Last administered on 07/19/16 09:33; Admin Dose 60 MG; Start 07/17/16 at 21:00 TERRIE YOST 18, 2017 13:52
--- NOTE | 2016-07-19 14:39 | CONS ---
Date/Time of Note Date/Time of Note DATE: 07/19/16 TIME: 14:37 Assessment/Plan Assessment/Plan Additional Assessment/Plan 1. Abnormal electrocardiogram, assess for acute coronary syndrome.-negative troponin x 3 - NO CP, doubt ischemia. 2. History of recent negative stress, May 2015 - med rx 3. History of percutaneous transluminal coronary angioplasty and stent placement in 2014 to the left main left anterior descending. No current chest pain. 4. Hypertension-worsening today/uncontrolled- BETTER NOW 5. History of dyslipidemia. 6. Pleural effusion, status post thoracentesis- con't pulm care 7. Possible pneumonia/cough-improved 8. Diabetes mellitus.- Rx to keep euglycemic 9. End-stage renal disease, on hemodialysis. 10. Had WCT-06/27 which was paced beats at approx 100. 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 Consultation Date/Type/Reason Admit Date/Time Jun 13, 2016 at 14:48 Type of Consultation: nephrology Referring Provider: EVA COX MD 24 HR Interval Summary Free Text/Dictation No acute events - BP stable - in good fluid status - will adjust rx as needed ROS: No fever, no chills, no nausea, no vomiting, no diarrhea/constipation No recent weight changes No chest pain, no PND, no orthopnea No dizziness, blurred vision No thirst, no heat or cold intolerance Exam/Review of Systems Vital Signs Vitals Vital Signs Date Time Temp Pulse Resp B/P Pulse Ox O2 Delivery O2 Flow Rate FiO2 07/19/16 12:39 69 07/19/16 11:46 97.5 18 146/67 97 07/15/16 16:00 Nasal Cannula Exam General: WN/WD/NAD, AOx 3 HEENT: Unicetric/atraumatic/EOMI (follow commands) NECK: JVD elevated, no thyromegaly Lymph: no lymphadenopathy HEART: regular with no S3, II/ systolic murmur at apex LUNGS: Coarse sounds ABD: soft, NT, ND, +BS : Intact Neuro: non focal SKIN: chronic changes EXT: trace edema Results Result Diagram: 07/19/16 0638 07/19/16 0638 Results 24 hrs Laboratory Tests Test 07/18/16 17:14 07/18/16 19:52 07/19/16 06:38 07/19/16 08:32 Bedside Glucose 138 160 150 Anion Gap 14 Basophils # 0.1 Basophils % 1.7 Blood Urea Nitrogen 54 H Calcium Level 9.8 Carbon Dioxide Level 29 Chloride Level 95 L Creatinine 7.53 H Eosinophils # 0.6 H Eosinophils % 8.4 H Glucose Level 119 Hematocrit 27.4 L Hemoglobin 9.0 L Lymphocytes # 0.9 Lymphocytes % 12.7 L Mean Corpuscular Hemoglobin 31.8 Mean Corpuscular Hemoglobin Concent 32.8 Mean Corpuscular Volume 96.8 Mean Platelet Volume 9.1 Monocytes # 0.8 Monocytes % 11.3 H Neutrophils # 4.6 Neutrophils % 65.6 Nucleated Red Blood Cells # 0.0 Nucleated Red Blood Cells % 0.0 Platelet Count 304 Potassium Level 4.3 Red Blood Count 2.83 L Red Cell Distribution Width 12.9 Sodium Level 134 L White Blood Count 7.0 Test 07/19/16 13:05 Bedside Glucose 173 Medications Medications Current Medications IV Flush (NS 10 ml) 10 ml PRN PRN IV FLUSH LINE; Start 06/13/16 at 19:00 Aspirin (Halfprin) 81 mg DAILY PO Last administered on 07/19/16 09:35; Admin Dose 81 MG; Start 06/14/16 at 09:00 Atorvastatin Calcium (Lipitor) 10 mg QHS PO Last administered on 07/18/16 21: 24; Admin Dose 10 MG; Start 06/14/16 at 21:00 Cholecalciferol (Vitamin D) 400 units DAILY PO Last administered on 07/19/16 09:35; Admin Dose 400 UNITS; Start 06/14/16 at 09:00 Ferrous Sulfate (Ferrous Sulfate (Ec)) 325 mg BID PO Last administered on 09:34; Admin Dose 325 MG; Start 06/14/16 at 09:00 Acetaminophen (Tylenol Tab) 500 mg Q4H PRN PO PAIN AND OR ELEVATED TEMP Last administered on 07/05/16 05:49; Admin Dose 500 MG; Start 06/14/16 at 00:00 Miscellaneous Information 1 ea NOTE XX Last administered on 06/18/16 07:57; Admin Dose 1 EA; Start 06/14/16 at 00:30 Glucose (Glutose) 15 gm Q15M PRN PO DECREASED GLUCOSE; Start 06/14/16 at 00:30 Glucose (Glutose) 22.5 gm Q15M PRN PO DECREASED GLUCOSE; Start 06/14/16 at 00: 30 Dextrose (D50w Syringe) 25 ml Q15M PRN IV DECREASED GLUCOSE Last administered on 07/17/16 12:47; Admin Dose 25 ML; Start 06/14/16 at 00:30 Dextrose (D50w Syringe) 50 ml Q15M PRN IV DECREASED GLUCOSE; Start 06/14/16 at 00:30 Glucagon (Glucagen) 1 mg Q15M PRN IM DECREASED GLUCOSE; Start 06/14/16 at 00:30 Glucose (Glutose) 15 gm Q15M PRN BUCCAL DECREASED GLUCOSE; Start 06/14/16 at 00 :30 Diagnostic Test (Pha) (Accucheck) 1 ea 02 XX Last administered on 07/11/16 01: 54; Admin Dose 1 EA; Start 06/14/16 at 02:00 Clonidine (Catapres) 0.2 mg Q8 PRN PO Systolic >160 Last administered on 02:29; Admin Dose 0.2 MG; Start 06/14/16 at 13:00 Promethazine HCl/ Codeine (Phenergan/ Codeine) 5 ml Q4H PRN PO COUGH Last administered on 06/21/16 18:04; Admin Dose 5 ML; Start 06/15/16 at 00:00 Pantoprazole (Protonix Tab) 40 mg DAILY@06 PO Last administered on 07/19/16 05 :09; Admin Dose 40 MG; Start 06/16/16 at 06:00 Diphenhydramine HCl (Benadryl) 25 mg HS PRN PO INSOMNIA Last administered on 00:09; Admin Dose 25 MG; Start 06/15/16 at 21:30 Hydralazine HCl (Apresoline) 100 mg Q8 PO Last administered on 07/19/16 09:34 ; Admin Dose 100 MG; Start 06/19/16 at 13:00 Bisacodyl (Dulcolax) 10 mg DAILY PRN PO CONSTIPATION Last administered on 10:33; Admin Dose 10 MG; Start 06/22/16 at 11:30 Benazepril HCl (Lotensin) 40 mg BID PO Last administered on 07/19/16 09:35; Admin Dose 40 MG; Start 06/23/16 at 21:00 Hydralazine HCl (Apresoline) 20 mg Q4H PRN IV for SBP more than 170 Last administered on 07/18/16 15:01; Admin Dose 20 MG; Start 06/28/16 at 05:00 Ondansetron HCl (Zofran Inj) 4 mg Q6H PRN IV NAUSEA AND/OR VOMITING Last administered on 07/18/16 14:52; Admin Dose 4 MG; Start 06/28/16 at 05:00 Lorazepam (Ativan) 1 mg Q6H PRN IV ANXIETY Last administered on 07/18/16 21:38 ; Admin Dose 1 MG; Start 06/28/16 at 05:00 Cyclobenzaprine HCl (Flexeril) 10 mg TID PO Last administered on 07/19/16 13: 05; Admin Dose 10 MG; Start 07/03/16 at 21:00 Hydromorphone HCl (Dilaudid) 0.5 mg Q4H PRN IV PAIN Last administered on 15:38; Admin Dose 0.5 MG; Start 07/07/16 at 22:00 Hydromorphone HCl (Dilaudid) 1 mg Q3H PRN IV PAIN Last administered on 13:13; Admin Dose 1 MG; Start 07/07/16 at 22:00 Metoprolol Tartrate (Lopressor) 75 mg BID PO Last administered on 07/19/16 09: 34; Admin Dose 75 MG; Start 07/09/16 at 21:00 Isoniazid (Isoniazid) 300 mg DAILY PO Last administered on 07/19/16 09:34; Admin Dose 300 MG; Start 07/12/16 at 15:00 Rifampin (Rifampin) 600 mg DAILY PO Last administered on 07/19/16 09:33; Admin Dose 600 MG; Start 07/12/16 at 15:00 Clonidine (Catapres) 0.1 mg TID PO Last administered on 07/14/16 09:34; Admin Dose 0.1 MG; Start 07/13/16 at 21:00; Status Future Hold Ethambutol HCl (Myambutol) 1,200 mg TuThSa@18 PO Last administered on 18:00; Admin Dose 1,200 MG; Start 07/15/16 at 18:00 Pyrazinamide (Pyrazinamide) 1,500 mg TuThSa@18 PO Last administered on 18:00; Admin Dose 1,500 MG; Start 07/15/16 at 18:00 Pyridoxine HCl (Vitamin B6) 100 mg DAILY PO Last administered on 07/19/16 09: 33; Admin Dose 100 MG; Start 07/15/16 at 16:00 Doxazosin Mesylate (Cardura) 2 mg BID PO Last administered on 07/19/16 09:33; Admin Dose 2 MG; Start 07/16/16 at 21:00 Insulin Glargine (Lantus) 6 unit DAILY@20 SC Last administered on 07/18/16 21: 27; Admin Dose 6 UNIT; Start 07/17/16 at 20:00 Nifedipine (Procardia Xl) 60 mg BID PO Last administered on 07/19/16 09:33; Admin Dose 60 MG; Start 07/17/16 at 21:00 CRIS BERNARD MD Jul 19, 2016 14:39
[2016-07-19] MEDS ORDERED: MAGNESIUM CITRATE 300 ML BTL PO ONE (21:00)
--- NOTE | 2016-07-19 21:25 | RADRPT ---
PROCEDURE: US Abdomen (right upper quadrant). CLINICAL INDICATION: Right upper quadrant abdomen pain. TECHNIQUE: Multiple real-time longitudinal and transverse images of the right upper quadrant of th e abdomen were acquired utilizing a curved array transducer. Images were reviewed on a high-resoluti on PACS workstation. COMPARISON: None FINDINGS: The liver is normal in size and echogenicity. There is no focal hepatic lesion. The gallbladder is normal with no stones or wall thickening. There is no pericholecystic fluid maria isabel ection. The bile ducts are normal with the common bile duct measuring 5.6 mm in diameter. The visualized portions of the pancreas are unremarkable with obscuration of the tail of the pancrea s. No free fluid is present. The right kidney measures 7.9 x 3.1 x 5.1 cm. There is increased echogenicity of the right kidney. There is no perinephric fluid collection. No hydronephrosis, mass, or calculus is seen. IMPRESSION: 1. Atrophic hyperechoic right kidney which may indicate medical renal disease. 2. Otherwise normal right upper quadrant abdomen ultrasound. RPTAT: QQ .Robby Bennett MD, Date Time Electronically viewed and signed by .Robby Bennett MD, MD on 07/19/2016 21:25 .R/
[2016-07-19] MEDS: INSULIN GLARGINE [LANtus] 3 ML PEN SC SCH (21:32)
[2016-07-19] MEDS: ATORVASTATIN 10 MG TAB PO SCH (21:33)
[2016-07-19] MEDS: ETHAMBUTOL 400 MG TAB PO SCH (21:33)
[2016-07-19] MEDS: PYRAZINAMIDE 500 MG TAB PO SCH (21:33)
[2016-07-20] VITALS (11 sets, daily range): BP systolic 59–198; BP diastolic 56–81; PULSE 69–73; RESP 16–18
[2016-07-20] MEDS: HYDROmorphONE 1 MG/ML SYG IV PRN ×2 (01:10→17:10)
[2016-07-20] MEDS: ACCU-CHEK XX SCH ×5 (02:00→21:00)
[2016-07-20] MEDS: PANTOPRAZOLE (EC) 40 MG TAB PO SCH (05:21)
[2016-07-20 06:44] LABS: ADD SCAN DIFF NO
[2016-07-20 06:51] LABS: BASOPHIL # 0.1 10^3/ul (0.0-0.1); BASOPHILS % 1.5 % (0.0-2.0); EOSINOPHILS # 0.6 10^3/ul (0.0-0.5); EOSINOPHILS % 7.1 % (0.0-7.0); HEMATOCRIT 29.4 % (42.0-52.0); HEMOGLOBIN 9.5 g/dl (14.0-18.0); LYMPHOCYTES % 11.1 % (15.0-51.0); MEAN CORPUSCULAR HEMOGLOBIN 31.7 pg (29.0-33.0); MEAN CORPUSCULAR HGB CONC 32.3 g/dl (32.0-37.0); MEAN PLATELET VOLUME 8.9 fl (7.4-10.4); MONOCYTES % 11.2 % (0.0-11.0); NEUTROPHIL # 5.9 10^3/ul (1.6-7.5); NEUTROPHILS % 68.6 % (39.0-77.0); PLATELET COUNT 268 10^3/UL (140-415); RED CELL DISTRIBUTION WIDTH 13.1 % (11.5-14.5); WHITE BLOOD COUNT 8.6 10^3/ul (4.8-10.8)
[2016-07-20 07:06] LABS: POTASSIUM 4.6 mmol/L (3.5-5.1)
[2016-07-20 07:08] LABS: ALBUMIN/GLOBULIN RATIO 0.96; CREATININE 6.18 mg/dl (0.61-1.24); TOTAL PROTEIN 6.1 g/dl (6.1-8.1)
[2016-07-20 07:09] LABS: CALCIUM 10.2 mg/dl (8.4-10.2)
[2016-07-20] MEDS: ONDANSETRON 4 MG INJ IV PRN ×2 (09:04→22:36)
[2016-07-20] MEDS: CALCIUM ACETATE 667 MG CAP PO SCH ×3 (09:12→17:19)
[2016-07-20] MEDS: SEVELAMER CARBONATE 0.8 GM PKT PO SCH ×3 (09:12→17:19)
[2016-07-20] MEDS: LEVALBUTEROL (HFA) 15 GM INHALER INH SCH ×3 (09:12→16:00)
[2016-07-20] MEDS: INSULIN ASPART [NOVOLOG] 3 ML PEN SC SCH ×7 (09:13→21:00)
[2016-07-20] MEDS: RIFAMPIN 300 MG CAP PO SCH (09:17)
[2016-07-20] MEDS: BENAZEPRIL 40 MG TAB PO SCH ×2 (09:17→22:13)
[2016-07-20] MEDS: ASPIRIN (EC) 81 MG TAB PO SCH (09:17)
[2016-07-20] MEDS: FERROUS SULFATE (EC) 325 MG TAB PO SCH ×2 (09:17→22:13)
[2016-07-20] MEDS: NIFEdipine (XL) 60 MG TAB PO SCH ×2 (09:18→22:13)
[2016-07-20] MEDS: CHOLECALCIFEROL 400 UNITS TAB PO SCH (09:18)
[2016-07-20] MEDS: PYRIDOXINE 50 MG TAB PO SCH (09:18)
[2016-07-20] MEDS: ISONIAZID 300 MG TAB PO SCH (09:18)
[2016-07-20] MEDS: DOXAZOSIN 2 MG TAB PO SCH ×2 (09:18→22:13)
[2016-07-20] MEDS: CYCLOBENZAPRINE 10 MG TAB PO SCH ×3 (09:18→22:13)
[2016-07-20] MEDS: METOPROLOL 25 MG TAB PO SCH ×2 (09:19→22:14)
--- NOTE | 2016-07-20 12:15 | PN ---
Date/Time of Note Date/Time of Note DATE: 07/20/16 TIME: 12:14 Assessment/Plan VTE Prophylaxis VTE Prophylaxis Intervention: other Lines/Catheters IV Catheter Type (from [facility]): PICC Line Central line still needed: Yes Urinary Cath still in place: No Assessment/Plan Chief Complaint/Hosp Course - Anemia, status post blood transfusion, heparin is on hold, Dr. Borjas is following from gastroenterology consultation. - Recurrent pleural effusions. Dr. Martinez is following in thoracic surgery consultation. S/p VATS 06/30. Biopsy revealed granulomatous inflammation with focal necrosis and extensive hyalinization. Sputum for AFB negative 3. Continued on, on airborne isolation until cleared by department of health. Dr. Carl is following in infectious disease consultation. - Quantiferon Gold positive, prior Hx of TB per department of health, s/p treatment in 1998, continue TB therapy, contact isolation per ID. - Right pleural effusion, status post thoracentesis. Dr. Dale is following in pulmonology consultation. - End-stage renal disease, continue hemodialysis. Dr. Saunders is following in nephrology consultation. - Diabetes mellitus type 2, continue Lantus, pre-meal NovoLog and NovoLog per mild algorithm sliding scale. - Hypertension. Dr. De Santiago is following and cardiology consultation. Continue benazepril metoprolol hydralazine Procardia - Coronary artery disease, status post coronary artery bypass graft. - Permanent pacemaker. No acute issues. - Dyslipidemia. Continue Lipitor. Problems: Subjective 24 Hr Interval Summary Free Text/Dictation Patient resting comfortably Exam/Review of Systems Vital Signs Vitals Vital Signs Date Time Temp Pulse Resp B/P Pulse Ox O2 Delivery O2 Flow Rate FiO2 07/20/16 12:10 73 07/20/16 12:10 98.2 18 185/70 96 Intake and Output 07/19/16 07/19/16 07/20/16 15:00 23:00 07:00 Intake Total 300 ml 600 ml Output Total 1300 ml Balance -1000 ml 600 ml Exam Constitutional: well developed Head: atraumatic, normocephalic Neck: supple Respiratory: diminished breath sounds Cardiovascular: regular rate and rhythm Gastrointestinal: non-tender, soft Extremities: normal pulses Results Result Diagram: 07/20/16 0617 07/20/16 0617 Results 24 hrs Laboratory Tests Test 07/19/16 13:05 07/19/16 18:37 07/19/16 19:40 07/20/16 06:17 Bedside Glucose 173 143 153 Alanine Aminotransferase (ALT/SGPT) 12 L Albumin 3.0 L Albumin/Globulin Ratio 0.96 Alkaline Phosphatase 98 Anion Gap 15 Aspartate Amino Transf (AST/SGOT) 19 Basophils # 0.1 Basophils % 1.5 Blood Urea Nitrogen 43 #H Calcium Level 10.2 Carbon Dioxide Level 32 H Chloride Level 99 Creatinine 6.18 H Direct Bilirubin 0.00 Eosinophils # 0.6 H Eosinophils % 7.1 H Globulin 3.10 Glucose Level 97 Hematocrit 29.4 L Hemoglobin 9.5 L Indirect Bilirubin 0.0 Lymphocytes # 1.0 Lymphocytes % 11.1 L Mean Corpuscular Hemoglobin 31.7 Mean Corpuscular Hemoglobin Concent 32.3 Mean Corpuscular Volume 98.0 Mean Platelet Volume 8.9 Monocytes # 1.0 H Monocytes % 11.2 H Neutrophils # 5.9 Neutrophils % 68.6 Nucleated Red Blood Cells # 0.0 Nucleated Red Blood Cells % 0.0 Platelet Count 268 Potassium Level 4.6 Red Blood Count 3.00 L Red Cell Distribution Width 13.1 Sodium Level 141 Total Bilirubin 0.0 L Total Protein 6.1 White Blood Count 8.6 # Test 07/20/16 09:07 Bedside Glucose 106 Medications Medications Current Medications IV Flush (NS 10 ml) 10 ml PRN PRN IV FLUSH LINE; Start 06/13/16 at 19:00 Aspirin (Halfprin) 81 mg DAILY PO Last administered on 07/20/16 09:17; Admin Dose 81 MG; Start 06/14/16 at 09:00 Atorvastatin Calcium (Lipitor) 10 mg QHS PO Last administered on 07/19/16 21: 33; Admin Dose 10 MG; Start 06/14/16 at 21:00 Cholecalciferol (Vitamin D) 400 units DAILY PO Last administered on 07/20/16 09:18; Admin Dose 400 UNITS; Start 06/14/16 at 09:00 Ferrous Sulfate (Ferrous Sulfate (Ec)) 325 mg BID PO Last administered on 09:17; Admin Dose 325 MG; Start 06/14/16 at 09:00 Acetaminophen (Tylenol Tab) 500 mg Q4H PRN PO PAIN AND OR ELEVATED TEMP Last administered on 07/05/16 05:49; Admin Dose 500 MG; Start 06/14/16 at 00:00 Miscellaneous Information 1 ea NOTE XX Last administered on 06/18/16 07:57; Admin Dose 1 EA; Start 06/14/16 at 00:30 Glucose (Glutose) 15 gm Q15M PRN PO DECREASED GLUCOSE; Start 06/14/16 at 00:30 Glucose (Glutose) 22.5 gm Q15M PRN PO DECREASED GLUCOSE; Start 06/14/16 at 00: 30 Dextrose (D50w Syringe) 25 ml Q15M PRN IV DECREASED GLUCOSE Last administered on 07/17/16 12:47; Admin Dose 25 ML; Start 06/14/16 at 00:30 Dextrose (D50w Syringe) 50 ml Q15M PRN IV DECREASED GLUCOSE; Start 06/14/16 at 00:30 Glucagon (Glucagen) 1 mg Q15M PRN IM DECREASED GLUCOSE; Start 06/14/16 at 00:30 Glucose (Glutose) 15 gm Q15M PRN BUCCAL DECREASED GLUCOSE; Start 06/14/16 at 00 :30 Diagnostic Test (Pha) (Accucheck) 1 ea 02 XX Last administered on 07/11/16 01: 54; Admin Dose 1 EA; Start 06/14/16 at 02:00 Clonidine (Catapres) 0.2 mg Q8 PRN PO Systolic >160 Last administered on 02:29; Admin Dose 0.2 MG; Start 06/14/16 at 13:00 Promethazine HCl/ Codeine (Phenergan/ Codeine) 5 ml Q4H PRN PO COUGH Last administered on 06/21/16 18:04; Admin Dose 5 ML; Start 06/15/16 at 00:00 Pantoprazole (Protonix Tab) 40 mg DAILY@06 PO Last administered on 07/20/16 05 :21; Admin Dose 40 MG; Start 06/16/16 at 06:00 Diphenhydramine HCl (Benadryl) 25 mg HS PRN PO INSOMNIA Last administered on 00:09; Admin Dose 25 MG; Start 06/15/16 at 21:30 Hydralazine HCl (Apresoline) 100 mg Q8 PO Last administered on 07/20/16 05:21 ; Admin Dose 100 MG; Start 06/19/16 at 13:00 Bisacodyl (Dulcolax) 10 mg DAILY PRN PO CONSTIPATION Last administered on 10:33; Admin Dose 10 MG; Start 06/22/16 at 11:30 Benazepril HCl (Lotensin) 40 mg BID PO Last administered on 07/20/16 09:17; Admin Dose 40 MG; Start 06/23/16 at 21:00 Hydralazine HCl (Apresoline) 20 mg Q4H PRN IV for SBP more than 170 Last administered on 07/18/16 15:01; Admin Dose 20 MG; Start 06/28/16 at 05:00 Ondansetron HCl (Zofran Inj) 4 mg Q6H PRN IV NAUSEA AND/OR VOMITING Last administered on 07/20/16 09:04; Admin Dose 4 MG; Start 06/28/16 at 05:00 Lorazepam (Ativan) 1 mg Q6H PRN IV ANXIETY Last administered on 07/18/16 21:38 ; Admin Dose 1 MG; Start 06/28/16 at 05:00 Cyclobenzaprine HCl (Flexeril) 10 mg TID PO Last administered on 07/20/16 09: 18; Admin Dose 10 MG; Start 07/03/16 at 21:00 Hydromorphone HCl (Dilaudid) 0.5 mg Q4H PRN IV PAIN Last administered on 15:38; Admin Dose 0.5 MG; Start 07/07/16 at 22:00 Hydromorphone HCl (Dilaudid) 1 mg Q3H PRN IV PAIN Last administered on 01:10; Admin Dose 1 MG; Start 07/07/16 at 22:00 Metoprolol Tartrate (Lopressor) 75 mg BID PO Last administered on 07/20/16 09: 19; Admin Dose 75 MG; Start 07/09/16 at 21:00 Isoniazid (Isoniazid) 300 mg DAILY PO Last administered on 07/20/16 09:18; Admin Dose 300 MG; Start 07/12/16 at 15:00 Rifampin (Rifampin) 600 mg DAILY PO Last administered on 07/20/16 09:17; Admin Dose 600 MG; Start 07/12/16 at 15:00 Clonidine (Catapres) 0.1 mg TID PO Last administered on 07/14/16 09:34; Admin Dose 0.1 MG; Start 07/13/16 at 21:00; Status Future Hold Ethambutol HCl (Myambutol) 1,200 mg TuThSa@18 PO Last administered on 21:33; Admin Dose 1,200 MG; Start 07/15/16 at 18:00 Pyrazinamide (Pyrazinamide) 1,500 mg TuThSa@18 PO Last administered on 21:33; Admin Dose 1,500 MG; Start 07/15/16 at 18:00 Pyridoxine HCl (Vitamin B6) 100 mg DAILY PO Last administered on 07/20/16 09: 18; Admin Dose 100 MG; Start 07/15/16 at 16:00 Doxazosin Mesylate (Cardura) 2 mg BID PO Last administered on 07/20/16 09:18; Admin Dose 2 MG; Start 07/16/16 at 21:00 Insulin Glargine (Lantus) 6 unit DAILY@20 SC Last administered on 07/19/16 21: 32; Admin Dose 6 UNIT; Start 07/17/16 at 20:00 Nifedipine (Procardia Xl) 60 mg BID PO Last administered on 07/20/16 09:18; Admin Dose 60 MG; Start 07/17/16 at 21:00 HELEN SHARP 19, 2017 12:15
--- NOTE | 2016-07-20 12:51 | CONS ---
[facility] 07/20/16 1251: Date/Time of Note Date/Time of Note DATE: 07/20/16 TIME: 12:49 Assessment/Plan Assessment/Plan Additional Assessment/Plan - Anemia, status post blood transfusion, heparin is on hold, Dr. Borjas is following from gastroenterology consultation. - Recurrent pleural effusions. Dr. Martinez is following in thoracic surgery consultation. S/p VATS 06/30. Biopsy revealed granulomatous inflammation with focal necrosis and extensive hyalinization. Sputum for AFB negative 3. Continued on airborne isolation until cleared by department of health. - Quantiferon Gold positive, prior Hx of TB per department of health, s/p treatment in 1998, continue TB therapy. - Right pleural effusion, status post thoracentesis. Dr. Dale is following in pulmonology consultation. -abd pain--closely associated w/ start of TB Tx--rec: monitoring LFT's QOD - End-stage renal disease, continue hemodialysis. Dr. Saunders is following in nephrology consultation. - Diabetes mellitus type 2, continue Lantus, pre-meal NovoLog and NovoLog per mild algorithm sliding scale. - Hypertension. Dr. De Santiago is following and cardiology consultation. Continue benazepril metoprolol hydralazine Procardia - Coronary artery disease, status post coronary artery bypass graft. - Permanent pacemaker. No acute issues. - Dyslipidemia. Continue Lipitor. d/w Dr Verduzco Consultation Date/Type/Reason Admit Date/Time Jun 13, 2016 at 14:48 Initial Consult Date 07/04/16 Type of Consultation: ID Referring Provider: EVA COX MD 24 HR Interval Summary Free Text/Dictation c/o nausea and constipation. Zofran and Mag Citrate given. Poor appetite Exam/Review of Systems Vital Signs Vitals Vital Signs Date Time Temp Pulse Resp B/P Pulse Ox O2 Delivery O2 Flow Rate FiO2 07/20/16 12:10 73 07/20/16 12:10 98.2 18 185/70 96 Intake and Output 07/19/16 07/19/16 07/20/16 15:00 23:00 07:00 Intake Total 300 ml 600 ml Output Total 1300 ml Balance -1000 ml 600 ml Exam Constitutional: alert Head: atraumatic, normocephalic Eyes: EOMI, nl conjunctiva ENMT: nl external ears & nose Neck: non-tender, supple Respiratory: clear to auscultation, other (Rt sided chest wall pain at CT site) Cardiovascular: regular rate and rhythm Gastrointestinal: other (mildly tender to deep palpation), soft Musculoskeletal: nl extremities to inspection Neurological: nl mental status, nl speech Results Result Diagram: 07/20/16 0617 07/20/16 0617 Results 24 hrs Laboratory Tests Test 07/19/16 13:05 07/19/16 18:37 07/19/16 19:40 07/20/16 06:17 Bedside Glucose 173 143 153 Alanine Aminotransferase (ALT/SGPT) 12 L Albumin 3.0 L Albumin/Globulin Ratio 0.96 Alkaline Phosphatase 98 Anion Gap 15 Aspartate Amino Transf (AST/SGOT) 19 Basophils # 0.1 Basophils % 1.5 Blood Urea Nitrogen 43 #H Calcium Level 10.2 Carbon Dioxide Level 32 H Chloride Level 99 Creatinine 6.18 H Direct Bilirubin 0.00 Eosinophils # 0.6 H Eosinophils % 7.1 H Globulin 3.10 Glucose Level 97 Hematocrit 29.4 L Hemoglobin 9.5 L Indirect Bilirubin 0.0 Lymphocytes # 1.0 Lymphocytes % 11.1 L Mean Corpuscular Hemoglobin 31.7 Mean Corpuscular Hemoglobin Concent 32.3 Mean Corpuscular Volume 98.0 Mean Platelet Volume 8.9 Monocytes # 1.0 H Monocytes % 11.2 H Neutrophils # 5.9 Neutrophils % 68.6 Nucleated Red Blood Cells # 0.0 Nucleated Red Blood Cells % 0.0 Platelet Count 268 Potassium Level 4.6 Red Blood Count 3.00 L Red Cell Distribution Width 13.1 Sodium Level 141 Total Bilirubin 0.0 L Total Protein 6.1 White Blood Count 8.6 # Test 07/20/16 09:07 Bedside Glucose 106 Medications Medications Current Medications IV Flush (NS 10 ml) 10 ml PRN PRN IV FLUSH LINE; Start 06/13/16 at 19:00 Aspirin (Halfprin) 81 mg DAILY PO Last administered on 07/20/16 09:17; Admin Dose 81 MG; Start 06/14/16 at 09:00 Atorvastatin Calcium (Lipitor) 10 mg QHS PO Last administered on 07/19/16 21: 33; Admin Dose 10 MG; Start 06/14/16 at 21:00 Cholecalciferol (Vitamin D) 400 units DAILY PO Last administered on 07/20/16 09:18; Admin Dose 400 UNITS; Start 06/14/16 at 09:00 Ferrous Sulfate (Ferrous Sulfate (Ec)) 325 mg BID PO Last administered on 09:17; Admin Dose 325 MG; Start 06/14/16 at 09:00 Acetaminophen (Tylenol Tab) 500 mg Q4H PRN PO PAIN AND OR ELEVATED TEMP Last administered on 07/05/16 05:49; Admin Dose 500 MG; Start 06/14/16 at 00:00 Miscellaneous Information 1 ea NOTE XX Last administered on 06/18/16 07:57; Admin Dose 1 EA; Start 06/14/16 at 00:30 Glucose (Glutose) 15 gm Q15M PRN PO DECREASED GLUCOSE; Start 06/14/16 at 00:30 Glucose (Glutose) 22.5 gm Q15M PRN PO DECREASED GLUCOSE; Start 06/14/16 at 00: 30 Dextrose (D50w Syringe) 25 ml Q15M PRN IV DECREASED GLUCOSE Last administered on 07/17/16 12:47; Admin Dose 25 ML; Start 06/14/16 at 00:30 Dextrose (D50w Syringe) 50 ml Q15M PRN IV DECREASED GLUCOSE; Start 06/14/16 at 00:30 Glucagon (Glucagen) 1 mg Q15M PRN IM DECREASED GLUCOSE; Start 06/14/16 at 00:30 Glucose (Glutose) 15 gm Q15M PRN BUCCAL DECREASED GLUCOSE; Start 06/14/16 at 00 :30 Diagnostic Test (Pha) (Accucheck) 1 ea 02 XX Last administered on 07/11/16 01: 54; Admin Dose 1 EA; Start 06/14/16 at 02:00 Clonidine (Catapres) 0.2 mg Q8 PRN PO Systolic >160 Last administered on 02:29; Admin Dose 0.2 MG; Start 06/14/16 at 13:00 Promethazine HCl/ Codeine (Phenergan/ Codeine) 5 ml Q4H PRN PO COUGH Last administered on 06/21/16 18:04; Admin Dose 5 ML; Start 06/15/16 at 00:00 Pantoprazole (Protonix Tab) 40 mg DAILY@06 PO Last administered on 07/20/16 05 :21; Admin Dose 40 MG; Start 06/16/16 at 06:00 Diphenhydramine HCl (Benadryl) 25 mg HS PRN PO INSOMNIA Last administered on 00:09; Admin Dose 25 MG; Start 06/15/16 at 21:30 Hydralazine HCl (Apresoline) 100 mg Q8 PO Last administered on 07/20/16 05:21 ; Admin Dose 100 MG; Start 06/19/16 at 13:00 Bisacodyl (Dulcolax) 10 mg DAILY PRN PO CONSTIPATION Last administered on 10:33; Admin Dose 10 MG; Start 06/22/16 at 11:30 Benazepril HCl (Lotensin) 40 mg BID PO Last administered on 07/20/16 09:17; Admin Dose 40 MG; Start 06/23/16 at 21:00 Hydralazine HCl (Apresoline) 20 mg Q4H PRN IV for SBP more than 170 Last administered on 07/18/16 15:01; Admin Dose 20 MG; Start 06/28/16 at 05:00 Ondansetron HCl (Zofran Inj) 4 mg Q6H PRN IV NAUSEA AND/OR VOMITING Last administered on 07/20/16 09:04; Admin Dose 4 MG; Start 06/28/16 at 05:00 Lorazepam (Ativan) 1 mg Q6H PRN IV ANXIETY Last administered on 07/18/16 21:38 ; Admin Dose 1 MG; Start 06/28/16 at 05:00 Cyclobenzaprine HCl (Flexeril) 10 mg TID PO Last administered on 07/20/16 12: 38; Admin Dose 10 MG; Start 07/03/16 at 21:00 Hydromorphone HCl (Dilaudid) 0.5 mg Q4H PRN IV PAIN Last administered on 15:38; Admin Dose 0.5 MG; Start 07/07/16 at 22:00 Hydromorphone HCl (Dilaudid) 1 mg Q3H PRN IV PAIN Last administered on 01:10; Admin Dose 1 MG; Start 07/07/16 at 22:00 Metoprolol Tartrate (Lopressor) 75 mg BID PO Last administered on 07/20/16 09: 19; Admin Dose 75 MG; Start 07/09/16 at 21:00 Isoniazid (Isoniazid) 300 mg DAILY PO Last administered on 07/20/16 09:18; Admin Dose 300 MG; Start 07/12/16 at 15:00 Rifampin (Rifampin) 600 mg DAILY PO Last administered on 07/20/16 09:17; Admin Dose 600 MG; Start 07/12/16 at 15:00 Clonidine (Catapres) 0.1 mg TID PO Last administered on 07/14/16 09:34; Admin Dose 0.1 MG; Start 07/13/16 at 21:00; Status Future Hold Ethambutol HCl (Myambutol) 1,200 mg TuThSa@18 PO Last administered on 21:33; Admin Dose 1,200 MG; Start 07/15/16 at 18:00 Pyrazinamide (Pyrazinamide) 1,500 mg TuThSa@18 PO Last administered on 21:33; Admin Dose 1,500 MG; Start 07/15/16 at 18:00 Pyridoxine HCl (Vitamin B6) 100 mg DAILY PO Last administered on 07/20/16 09: 18; Admin Dose 100 MG; Start 07/15/16 at 16:00 Doxazosin Mesylate (Cardura) 2 mg BID PO Last administered on 07/20/16 09:18; Admin Dose 2 MG; Start 07/16/16 at 21:00 Insulin Glargine (Lantus) 6 unit DAILY@20 SC Last administered on 07/19/16 21: 32; Admin Dose 6 UNIT; Start 07/17/16 at 20:00 Nifedipine (Procardia Xl) 60 mg BID PO Last administered on 07/20/16 09:18; Admin Dose 60 MG; Start 07/17/16 at 21:00 YUMIKO VERDUZCO M.D. 07/21/16 0044: Assessment/Plan Assessment/Plan Additional Assessment/Plan Dax attestation: I discussed the management with DENNIS Teague and agree with above. Exam/Review of Systems Results Result Diagram: 07/20/1617 07/20/1617 [facility] Jul 20, 2016 12:51 YUMIKO VERDUZCO M.D. Jul 21, 2016 00:44
[2016-07-20] MEDS ORDERED: ONDANSETRON 4 MG INJ IV STA (13:44)
[2016-07-20] MEDS: hydrALAzine 20 MG INJ IV PRN (14:13)
--- NOTE | 2016-07-20 15:27 | CONS ---
Date/Time of Note Date/Time of Note DATE: 07/20/16 TIME: 15:25 Assessment/Plan Assessment/Plan Chief Complaint/Hosp Course ESRD HTN PNEUMONIA better PLEURAL EFFUSION s/p vats ctube out TB GOLD TEST +r/o ptb ANEMIA PLAN PER CARDIO NON COMPLIANCE W HD hd refused hd 3 x wk HD am T/THURSDAY PT REFUSED HD ON THURSDAY per pcp fluid res PER SURGERY per id on anti tb drugs po magace Problems: Consultation Date/Type/Reason Admit Date/Time Jun 13, 2016 at 14:48 Type of Consultation: renal Referring Provider: EVA COX MD 24 HR Interval Summary Constitutional: other (nausea and poor po iantake) Exam/Review of Systems Vital Signs Vitals Vital Signs Date Time Temp Pulse Resp B/P Pulse Ox O2 Delivery O2 Flow Rate FiO2 07/20/16 12:10 73 07/20/16 12:10 98.2 18 185/70 96 Intake and Output 07/19/16 07/19/16 07/20/16 15:00 23:00 07:00 Intake Total 300 ml 600 ml Output Total 1300 ml Balance -1000 ml 600 ml Exam Respiratory: clear to auscultation Cardiovascular: regular rate and rhythm Gastrointestinal: soft Musculoskeletal: nl extremities to inspection Results Result Diagram: 07/20/16 0617 07/20/16 0617 Results 24 hrs Laboratory Tests Test 07/19/16 18:37 07/19/16 19:40 07/20/16 06:17 07/20/16 09:07 Bedside Glucose 143 153 106 Alanine Aminotransferase (ALT/SGPT) 12 L Albumin 3.0 L Albumin/Globulin Ratio 0.96 Alkaline Phosphatase 98 Anion Gap 15 Aspartate Amino Transf (AST/SGOT) 19 Basophils # 0.1 Basophils % 1.5 Blood Urea Nitrogen 43 #H Calcium Level 10.2 Carbon Dioxide Level 32 H Chloride Level 99 Creatinine 6.18 H Direct Bilirubin 0.00 Eosinophils # 0.6 H Eosinophils % 7.1 H Globulin 3.10 Glucose Level 97 Hematocrit 29.4 L Hemoglobin 9.5 L Indirect Bilirubin 0.0 Lymphocytes # 1.0 Lymphocytes % 11.1 L Mean Corpuscular Hemoglobin 31.7 Mean Corpuscular Hemoglobin Concent 32.3 Mean Corpuscular Volume 98.0 Mean Platelet Volume 8.9 Monocytes # 1.0 H Monocytes % 11.2 H Neutrophils # 5.9 Neutrophils % 68.6 Nucleated Red Blood Cells # 0.0 Nucleated Red Blood Cells % 0.0 Platelet Count 268 Potassium Level 4.6 Red Blood Count 3.00 L Red Cell Distribution Width 13.1 Sodium Level 141 Total Bilirubin 0.0 L Total Protein 6.1 White Blood Count 8.6 # Test 07/20/16 12:36 Bedside Glucose 128 Medications Medications Current Medications IV Flush (NS 10 ml) 10 ml PRN PRN IV FLUSH LINE; Start 06/13/16 at 19:00 Aspirin (Halfprin) 81 mg DAILY PO Last administered on 07/20/16 09:17; Admin Dose 81 MG; Start 06/14/16 at 09:00 Atorvastatin Calcium (Lipitor) 10 mg QHS PO Last administered on 07/19/16 21: 33; Admin Dose 10 MG; Start 06/14/16 at 21:00 Cholecalciferol (Vitamin D) 400 units DAILY PO Last administered on 07/20/16 09:18; Admin Dose 400 UNITS; Start 06/14/16 at 09:00 Ferrous Sulfate (Ferrous Sulfate (Ec)) 325 mg BID PO Last administered on 09:17; Admin Dose 325 MG; Start 06/14/16 at 09:00 Acetaminophen (Tylenol Tab) 500 mg Q4H PRN PO PAIN AND OR ELEVATED TEMP Last administered on 07/05/16 05:49; Admin Dose 500 MG; Start 06/14/16 at 00:00 Miscellaneous Information 1 ea NOTE XX Last administered on 06/18/16 07:57; Admin Dose 1 EA; Start 06/14/16 at 00:30 Glucose (Glutose) 15 gm Q15M PRN PO DECREASED GLUCOSE; Start 06/14/16 at 00:30 Glucose (Glutose) 22.5 gm Q15M PRN PO DECREASED GLUCOSE; Start 06/14/16 at 00: 30 Dextrose (D50w Syringe) 25 ml Q15M PRN IV DECREASED GLUCOSE Last administered on 07/17/16 12:47; Admin Dose 25 ML; Start 06/14/16 at 00:30 Dextrose (D50w Syringe) 50 ml Q15M PRN IV DECREASED GLUCOSE; Start 06/14/16 at 00:30 Glucagon (Glucagen) 1 mg Q15M PRN IM DECREASED GLUCOSE; Start 06/14/16 at 00:30 Glucose (Glutose) 15 gm Q15M PRN BUCCAL DECREASED GLUCOSE; Start 06/14/16 at 00 :30 Diagnostic Test (Pha) (Accucheck) 1 ea 02 XX Last administered on 07/11/16 01: 54; Admin Dose 1 EA; Start 06/14/16 at 02:00 Clonidine (Catapres) 0.2 mg Q8 PRN PO Systolic >160 Last administered on 02:29; Admin Dose 0.2 MG; Start 06/14/16 at 13:00 Promethazine HCl/ Codeine (Phenergan/ Codeine) 5 ml Q4H PRN PO COUGH Last administered on 06/21/16 18:04; Admin Dose 5 ML; Start 06/15/16 at 00:00 Pantoprazole (Protonix Tab) 40 mg DAILY@06 PO Last administered on 07/20/16 05 :21; Admin Dose 40 MG; Start 06/16/16 at 06:00 Diphenhydramine HCl (Benadryl) 25 mg HS PRN PO INSOMNIA Last administered on 00:09; Admin Dose 25 MG; Start 06/15/16 at 21:30 Hydralazine HCl (Apresoline) 100 mg Q8 PO Last administered on 07/20/16 14:13 ; Admin Dose 100 MG; Start 06/19/16 at 13:00 Bisacodyl (Dulcolax) 10 mg DAILY PRN PO CONSTIPATION Last administered on 10:33; Admin Dose 10 MG; Start 06/22/16 at 11:30 Benazepril HCl (Lotensin) 40 mg BID PO Last administered on 07/20/16 09:17; Admin Dose 40 MG; Start 06/23/16 at 21:00 Hydralazine HCl (Apresoline) 20 mg Q4H PRN IV for SBP more than 170 Last administered on 07/20/16 14:13; Admin Dose 20 MG; Start 06/28/16 at 05:00 Ondansetron HCl (Zofran Inj) 4 mg Q6H PRN IV NAUSEA AND/OR VOMITING Last administered on 07/20/16 09:04; Admin Dose 4 MG; Start 06/28/16 at 05:00 Lorazepam (Ativan) 1 mg Q6H PRN IV ANXIETY Last administered on 07/18/16 21:38 ; Admin Dose 1 MG; Start 06/28/16 at 05:00 Cyclobenzaprine HCl (Flexeril) 10 mg TID PO Last administered on 07/20/16 12: 38; Admin Dose 10 MG; Start 07/03/16 at 21:00 Hydromorphone HCl (Dilaudid) 0.5 mg Q4H PRN IV PAIN Last administered on 15:38; Admin Dose 0.5 MG; Start 07/07/16 at 22:00 Hydromorphone HCl (Dilaudid) 1 mg Q3H PRN IV PAIN Last administered on 01:10; Admin Dose 1 MG; Start 07/07/16 at 22:00 Metoprolol Tartrate (Lopressor) 75 mg BID PO Last administered on 07/20/16 09: 19; Admin Dose 75 MG; Start 07/09/16 at 21:00 Isoniazid (Isoniazid) 300 mg DAILY PO Last administered on 07/20/16 09:18; Admin Dose 300 MG; Start 07/12/16 at 15:00 Rifampin (Rifampin) 600 mg DAILY PO Last administered on 07/20/16 09:17; Admin Dose 600 MG; Start 07/12/16 at 15:00 Clonidine (Catapres) 0.1 mg TID PO Last administered on 07/14/16 09:34; Admin Dose 0.1 MG; Start 07/13/16 at 21:00; Status Future Hold Ethambutol HCl (Myambutol) 1,200 mg TuThSa@18 PO Last administered on 21:33; Admin Dose 1,200 MG; Start 07/15/16 at 18:00 Pyrazinamide (Pyrazinamide) 1,500 mg TuThSa@18 PO Last administered on 21:33; Admin Dose 1,500 MG; Start 07/15/16 at 18:00 Pyridoxine HCl (Vitamin B6) 100 mg DAILY PO Last administered on 07/20/16 09: 18; Admin Dose 100 MG; Start 07/15/16 at 16:00 Doxazosin Mesylate (Cardura) 2 mg BID PO Last administered on 07/20/16 09:18; Admin Dose 2 MG; Start 07/16/16 at 21:00 Insulin Glargine (Lantus) 6 unit DAILY@20 SC Last administered on 07/19/16 21: 32; Admin Dose 6 UNIT; Start 07/17/16 at 20:00 Nifedipine (Procardia Xl) 60 mg BID PO Last administered on 07/20/16 09:18; Admin Dose 60 MG; Start 07/17/16 at 21:00 PAOLA MOODY MD Jul 20, 2016 15:27
--- NOTE | 2016-07-20 19:11 | CONS ---
Date/Time of Note Date/Time of Note DATE: 07/20/16 TIME: 19:09 Assessment/Plan Assessment/Plan Additional Assessment/Plan 1. Abnormal electrocardiogram, assess for acute coronary syndrome.-negative troponin x 3 - NO CP, doubt ischemia. 2. History of recent negative stress, May 2015 - med rx 3. History of percutaneous transluminal coronary angioplasty and stent placement in 2014 to the left main left anterior descending. No current chest pain. 4. Hypertension-worsening today/uncontrolled- BETTER NOW 5. History of dyslipidemia. 6. Pleural effusion, status post thoracentesis- con't pulm care - s/p VATS - surgical care 7. Possible pneumonia/cough-improved 8. Diabetes mellitus.- Rx to keep euglycemic 9. End-stage renal disease, on hemodialysis. 10. Had WCT-06/27 which was paced beats at approx 100. NO recurrence since .MAC infection/colonization? Consultation Date/Type/Reason Admit Date/Time Jun 13, 2016 at 14:48 Type of Consultation: renal Referring Provider: EVA COX MD 24 HR Interval Summary Free Text/Dictation No acute events - no tachy aleyda symptoms. HR controlled - pacer in place. ROS: No fever, no chills, no nausea, no vomiting, no diarrhea/constipation No recent weight changes + SOB, n chest pain, no PND, no orthopnea No dizziness, blurred vision No thirst, no heat or cold intolerance Exam/Review of Systems Vital Signs Vitals Vital Signs Date Time Temp Pulse Resp B/P Pulse Ox O2 Delivery O2 Flow Rate FiO2 07/20/16 16:19 98.3 70 18 144/62 94 Intake and Output 07/19/16 07/19/16 07/20/16 15:00 23:00 07:00 Intake Total 300 ml 600 ml Output Total 1300 ml Balance -1000 ml 600 ml Exam General: WN/WD/NAD, AOx 2-3 HEENT: Unicetric/atraumatic/EOMI (follows commands) NECK: JVD elevated, no thyromegaly Lymph: no lymphadenopathy HEART: regular with no S3, II/ systolic murmur at apex, pacer LUNGS: Coarse sounds, post VATS ABD: soft, NT, ND, +BS : Intact Neuro: non focal SKIN: chronic changes EXT: trace edema Results Result Diagram: 07/20/1617 07/20/16 0617 Results 24 hrs Laboratory Tests Test 07/19/16 19:40 07/20/16 06:17 07/20/16 09:07 07/20/16 12:36 Bedside Glucose 153 106 128 Alanine Aminotransferase (ALT/SGPT) 12 L Albumin 3.0 L Albumin/Globulin Ratio 0.96 Alkaline Phosphatase 98 Anion Gap 15 Aspartate Amino Transf (AST/SGOT) 19 Basophils # 0.1 Basophils % 1.5 Blood Urea Nitrogen 43 #H Calcium Level 10.2 Carbon Dioxide Level 32 H Chloride Level 99 Creatinine 6.18 H Direct Bilirubin 0.00 Eosinophils # 0.6 H Eosinophils % 7.1 H Globulin 3.10 Glucose Level 97 Hematocrit 29.4 L Hemoglobin 9.5 L Indirect Bilirubin 0.0 Lymphocytes # 1.0 Lymphocytes % 11.1 L Mean Corpuscular Hemoglobin 31.7 Mean Corpuscular Hemoglobin Concent 32.3 Mean Corpuscular Volume 98.0 Mean Platelet Volume 8.9 Monocytes # 1.0 H Monocytes % 11.2 H Neutrophils # 5.9 Neutrophils % 68.6 Nucleated Red Blood Cells # 0.0 Nucleated Red Blood Cells % 0.0 Platelet Count 268 Potassium Level 4.6 Red Blood Count 3.00 L Red Cell Distribution Width 13.1 Sodium Level 141 Total Bilirubin 0.0 L Total Protein 6.1 White Blood Count 8.6 # Test 07/20/16 17:13 Bedside Glucose 161 Medications Medications Current Medications IV Flush (NS 10 ml) 10 ml PRN PRN IV FLUSH LINE; Start 06/13/16 at 19:00 Aspirin (Halfprin) 81 mg DAILY PO Last administered on 07/20/16 09:17; Admin Dose 81 MG; Start 06/14/16 at 09:00 Atorvastatin Calcium (Lipitor) 10 mg QHS PO Last administered on 07/19/16 21: 33; Admin Dose 10 MG; Start 06/14/16 at 21:00 Cholecalciferol (Vitamin D) 400 units DAILY PO Last administered on 07/20/16 09:18; Admin Dose 400 UNITS; Start 06/14/16 at 09:00 Ferrous Sulfate (Ferrous Sulfate (Ec)) 325 mg BID PO Last administered on 09:17; Admin Dose 325 MG; Start 06/14/16 at 09:00 Acetaminophen (Tylenol Tab) 500 mg Q4H PRN PO PAIN AND OR ELEVATED TEMP Last administered on 07/05/16 05:49; Admin Dose 500 MG; Start 06/14/16 at 00:00 Miscellaneous Information 1 ea NOTE XX Last administered on 06/18/16 07:57; Admin Dose 1 EA; Start 06/14/16 at 00:30 Glucose (Glutose) 15 gm Q15M PRN PO DECREASED GLUCOSE; Start 06/14/16 at 00:30 Glucose (Glutose) 22.5 gm Q15M PRN PO DECREASED GLUCOSE; Start 06/14/16 at 00: 30 Dextrose (D50w Syringe) 25 ml Q15M PRN IV DECREASED GLUCOSE Last administered on 07/17/16 12:47; Admin Dose 25 ML; Start 06/14/16 at 00:30 Dextrose (D50w Syringe) 50 ml Q15M PRN IV DECREASED GLUCOSE; Start 06/14/16 at 00:30 Glucagon (Glucagen) 1 mg Q15M PRN IM DECREASED GLUCOSE; Start 06/14/16 at 00:30 Glucose (Glutose) 15 gm Q15M PRN BUCCAL DECREASED GLUCOSE; Start 06/14/16 at 00 :30 Diagnostic Test (Pha) (Accucheck) 1 ea 02 XX Last administered on 07/11/16 01: 54; Admin Dose 1 EA; Start 06/14/16 at 02:00 Clonidine (Catapres) 0.2 mg Q8 PRN PO Systolic >160 Last administered on 02:29; Admin Dose 0.2 MG; Start 06/14/16 at 13:00 Promethazine HCl/ Codeine (Phenergan/ Codeine) 5 ml Q4H PRN PO COUGH Last administered on 06/21/16 18:04; Admin Dose 5 ML; Start 06/15/16 at 00:00 Pantoprazole (Protonix Tab) 40 mg DAILY@06 PO Last administered on 07/20/16 05 :21; Admin Dose 40 MG; Start 06/16/16 at 06:00 Diphenhydramine HCl (Benadryl) 25 mg HS PRN PO INSOMNIA Last administered on 00:09; Admin Dose 25 MG; Start 06/15/16 at 21:30 Hydralazine HCl (Apresoline) 100 mg Q8 PO Last administered on 07/20/16 14:13 ; Admin Dose 100 MG; Start 06/19/16 at 13:00 Bisacodyl (Dulcolax) 10 mg DAILY PRN PO CONSTIPATION Last administered on 10:33; Admin Dose 10 MG; Start 06/22/16 at 11:30 Benazepril HCl (Lotensin) 40 mg BID PO Last administered on 07/20/16 09:17; Admin Dose 40 MG; Start 06/23/16 at 21:00 Hydralazine HCl (Apresoline) 20 mg Q4H PRN IV for SBP more than 170 Last administered on 07/20/16 14:13; Admin Dose 20 MG; Start 06/28/16 at 05:00 Ondansetron HCl (Zofran Inj) 4 mg Q6H PRN IV NAUSEA AND/OR VOMITING Last administered on 07/20/16 09:04; Admin Dose 4 MG; Start 06/28/16 at 05:00 Lorazepam (Ativan) 1 mg Q6H PRN IV ANXIETY Last administered on 07/18/16 21:38 ; Admin Dose 1 MG; Start 06/28/16 at 05:00 Cyclobenzaprine HCl (Flexeril) 10 mg TID PO Last administered on 07/20/16 12: 38; Admin Dose 10 MG; Start 07/03/16 at 21:00 Hydromorphone HCl (Dilaudid) 0.5 mg Q4H PRN IV PAIN Last administered on 15:38; Admin Dose 0.5 MG; Start 07/07/16 at 22:00 Hydromorphone HCl (Dilaudid) 1 mg Q3H PRN IV PAIN Last administered on 17:10; Admin Dose 1 MG; Start 07/07/16 at 22:00 Metoprolol Tartrate (Lopressor) 75 mg BID PO Last administered on 07/20/16 09: 19; Admin Dose 75 MG; Start 07/09/16 at 21:00 Isoniazid (Isoniazid) 300 mg DAILY PO Last administered on 07/20/16 09:18; Admin Dose 300 MG; Start 07/12/16 at 15:00 Rifampin (Rifampin) 600 mg DAILY PO Last administered on 07/20/16 09:17; Admin Dose 600 MG; Start 07/12/16 at 15:00 Clonidine (Catapres) 0.1 mg TID PO Last administered on 07/14/16 09:34; Admin Dose 0.1 MG; Start 07/13/16 at 21:00; Status Future Hold Ethambutol HCl (Myambutol) 1,200 mg TuThSa@18 PO Last administered on 21:33; Admin Dose 1,200 MG; Start 07/15/16 at 18:00 Pyrazinamide (Pyrazinamide) 1,500 mg TuThSa@18 PO Last administered on 21:33; Admin Dose 1,500 MG; Start 07/15/16 at 18:00 Pyridoxine HCl (Vitamin B6) 100 mg DAILY PO Last administered on 07/20/16 09: 18; Admin Dose 100 MG; Start 07/15/16 at 16:00 Doxazosin Mesylate (Cardura) 2 mg BID PO Last administered on 07/20/16 09:18; Admin Dose 2 MG; Start 07/16/16 at 21:00 Insulin Glargine (Lantus) 6 unit DAILY@20 SC Last administered on 07/19/16 21: 32; Admin Dose 6 UNIT; Start 07/17/16 at 20:00 Nifedipine (Procardia Xl) 60 mg BID PO Last administered on 07/20/16 09:18; Admin Dose 60 MG; Start 07/17/16 at 21:00 Megestrol Acetate (Megace) 80 mg BID PO ; Start 07/20/16 at 21:00 CRIS BERNARD MD Jul 20, 2016 19:10
[2016-07-20] MEDS: MEGESTROL 40 MG TAB PO SCH (22:14)
[2016-07-20] MEDS: ATORVASTATIN 10 MG TAB PO SCH (22:14)
[2016-07-20] MEDS: INSULIN GLARGINE [LANtus] 3 ML PEN SC SCH (22:23)
[2016-07-20] MEDS: DIPHENHYDRAMINE 25 MG CAP PO PRN (22:36)
[2016-07-21] VITALS (10 sets, daily range): BP systolic 138–174; BP diastolic 59–71; PULSE 69; RESP 14–20
[2016-07-21] MEDS: ACCU-CHEK XX SCH ×4 (02:00→17:35)
[2016-07-21] MEDS: HYDROmorphONE 1 MG/ML SYG IV PRN ×2 (03:46→11:55)
[2016-07-21] MEDS: PANTOPRAZOLE (EC) 40 MG TAB PO SCH (05:43)
[2016-07-21 07:37] LABS: ADD SCAN DIFF NO
[2016-07-21 07:45] LABS: BASOPHIL # 0.1 10^3/ul (0.0-0.1); BASOPHILS % 1.6 % (0.0-2.0); EOSINOPHILS # 0.4 10^3/ul (0.0-0.5); EOSINOPHILS % 4.3 % (0.0-7.0); HEMATOCRIT 27.6 % (42.0-52.0); HEMOGLOBIN 8.8 g/dl (14.0-18.0); LYMPHOCYTES # 1.1 10^3/ul (0.8-2.9); LYMPHOCYTES % 13.5 % (15.0-51.0); MEAN CORPUSCULAR HEMOGLOBIN 31.7 pg (29.0-33.0); MEAN CORPUSCULAR HGB CONC 31.9 g/dl (32.0-37.0); MEAN CORPUSCULAR VOLUME 99.3 fl (82.0-101.0); MEAN PLATELET VOLUME 9.3 fl (7.4-10.4); MONOCYTE # 0.8 10^3/ul (0.3-0.9); MONOCYTES % 10.3 % (0.0-11.0); NEUTROPHIL # 5.7 10^3/ul (1.6-7.5); NEUTROPHILS % 70.1 % (39.0-77.0); PLATELET COUNT 259 10^3/UL (140-415); RED BLOOD COUNT 2.78 10^6/ul (4.70-6.10); WHITE BLOOD COUNT 8.1 10^3/ul (4.8-10.8)
[2016-07-21] MEDS: LEVALBUTEROL (HFA) 15 GM INHALER INH SCH ×3 (08:00→16:00)
[2016-07-21] MEDS: INSULIN ASPART [NOVOLOG] 3 ML PEN SC SCH ×6 (08:00→17:49)
[2016-07-21 08:01] LABS: POTASSIUM 4.7 mmol/L (3.5-5.1)
[2016-07-21 08:03] LABS: CREATININE 7.3 mg/dl (0.61-1.24)
[2016-07-21 08:04] LABS: CALCIUM 9.8 mg/dl (8.4-10.2)
[2016-07-21] MEDS: RIFAMPIN 300 MG CAP PO SCH ×2 (09:00→10:35)
[2016-07-21] MEDS: ISONIAZID 300 MG TAB PO SCH ×2 (09:00→10:37)
[2016-07-21] MEDS: MEGESTROL 40 MG TAB PO SCH (09:00)
[2016-07-21] MEDS: CHOLECALCIFEROL 400 UNITS TAB PO SCH (09:00)
--- NOTE | 2016-07-21 09:06 | RADRPT ---
PROCEDURE: XR Chest. CLINICAL INDICATION: 60-year-old male with pneumonia. TECHNIQUE: Single frontal view of the chest was obtained COMPARISON: Chest x-ray 07/15/2016 03:12 p.m. FINDINGS: The soft tissues are normal. There are osteophytes in the thoracic spine. A mediastinotomy was per formed. There is a dual chamber pacemaker implant over the left chest wall with electrode leads pro jecting at the level of the right atrium and right ventricle. The the heart, cardiomediastinal silh ouette, pulmonary vasculature and hilar structures are normal. There are vascular calcifications aor tic arch. There are right lower lobe infiltrates in the right pleural effusion. There is a metal cl ip above the medial aspect of the left diaphragm. The costophrenic angles are normal. The PICC line catheter is stable in position. IMPRESSION: 1. Right lower lobe pneumonia with a right pleural effusion. These findings are little changed comp ared to 07/15/2016. 2. Status post median sternotomy. 3. Atherosclerotic vascular disease. 4. PICC line catheter enters through the left arm with its distal end is not clearly identified be the level of the pacemaker in the area of the left axilla. RPTAT:AAJJ Physician Camille Date Time Electronically viewed and signed by Physician Camille on 07/21/2016 09:06 ROSA/
[2016-07-21] MEDS: SEVELAMER CARBONATE 0.8 GM PKT PO SCH ×3 (10:35→17:48)
[2016-07-21] MEDS: PYRIDOXINE 50 MG TAB PO SCH (10:35)
[2016-07-21] MEDS: BENAZEPRIL 40 MG TAB PO SCH (10:36)
[2016-07-21] MEDS: NIFEdipine (XL) 60 MG TAB PO SCH (10:36)
[2016-07-21] MEDS: ASPIRIN (EC) 81 MG TAB PO SCH (10:36)
[2016-07-21] MEDS: CYCLOBENZAPRINE 10 MG TAB PO SCH ×2 (10:37→15:39)
[2016-07-21] MEDS: CALCIUM ACETATE 667 MG CAP PO SCH ×3 (10:37→17:47)
[2016-07-21] MEDS: DOXAZOSIN 2 MG TAB PO SCH (10:37)
[2016-07-21] MEDS: FERROUS SULFATE (EC) 325 MG TAB PO SCH (10:37)
[2016-07-21] MEDS: METOPROLOL 25 MG TAB PO SCH (10:38)
--- NOTE | 2016-07-21 14:16 | CONS ---
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 tuberculosis DNA probe to the 1st sputum sample was undetectable - s/p R VATS, total pulmonary decortication, R pleurodesis on 06/30/2016. Biopsy was negative for fungal stain and AFB stain (micro lab and pathology department), as well as malignancy. It showed granulomatous inflammation with focal necrosis and extensive hyalinization. Chest tube was removed - h/o recurrent pleural effusion requiring thoracentesis approximately once a year, last performed in 04/2016 prior to this admission - positive quantiferon TB gold status of unknown duration. Per Pt, his past PPD was done in 2013, and was negative. - Our infection business controller Lindsey contacted the TB control unit at [facility]: we learned on 07/11/2016 that Pt has h/o mycobacterial tuberculosis infection in 1997 and was treated between 1997 and 1998. - DM - ESRD on HD - CAD s/p CABG in 2010 and cardiac stent in 2013 - HIV screen negative in 07/2016 tested at [facility] - RUQ pain - improving; RUQ US and LFT's essentially unremarkable recommendations: - continue renally dosed RIPE plus vitamin B6 supplement (07/12/2016-), scripts on the chart. - DC planning in progress - Above d/w Dr. Tucker Problems: Consultation Date/Type/Reason Admit Date/Time Jun 13, 2016 at 14:48 Initial Consult Date 07/04/16 Type of Consultation: Infectious Disease Referring Provider: EVA COX MD 24 HR Interval Summary Free Text/Dictation Afebrile and clinically unchanged and planning on DC home later today per DOUGLAS Jackson. Denies CP or SOB. Still reports intermittent RUQ pain d/t prior chest tube rating 6/10. "The pain is sharp and is on the inside where the chest tube use to be". States appetite has improved today. No n/v/d or dysuria. Exam/Review of Systems Vital Signs Vitals Vital Signs Date Time Temp Pulse Resp B/P Pulse Ox O2 Delivery O2 Flow Rate FiO2 07/21/16 13:54 69 07/21/16 12:42 98.1 16 138/59 92 Intake and Output 07/20/16 07/20/16 07/21/16 15:00 23:00 07:00 Intake Total 360 ml 800 ml Balance 360 ml 800 ml Exam Constitutional: alert, oriented, well developed Psych: nl mood/affect Head: atraumatic, normocephalic Neck: supple, No jvd Respiratory: clear to auscultation (anteriorly), diminished breath sounds (RLL) , normal air movement, other (Right lower thorax with dressing c/d/i - no TTP) Cardiovascular: nl pulses, other (left chest wall PM site c/d/i), regular rate and rhythm Gastrointestinal: bowel sounds (normoactive), non-tender, soft Musculoskeletal: nl extremities to inspection Extremities: normal pulses, No clubbing, No cyanosis, No edema, other (RUE AVF with good bruit and thrill ; LUE PICC c/d/i). Neurological: nl mental status, nl speech, nl strength Skin: nl turgor, No rash or lesions Results Result Diagram: 07/21/16 0640 07/21/16 0640 Results 24 hrs Laboratory Tests Test 07/20/16 17:13 07/20/16 20:29 07/21/16 06:40 07/21/16 08:09 Bedside Glucose 161 151 105 Anion Gap 15 Basophils # 0.1 Basophils % 1.6 Blood Urea Nitrogen 56 H Calcium Level 9.8 Carbon Dioxide Level 30 Chloride Level 97 Creatinine 7.30 H Eosinophils # 0.4 Eosinophils % 4.3 Glucose Level 89 Hematocrit 27.6 L Hemoglobin 8.8 L Lymphocytes # 1.1 Lymphocytes % 13.5 L Mean Corpuscular Hemoglobin 31.7 Mean Corpuscular Hemoglobin Concent 31.9 L Mean Corpuscular Volume 99.3 Mean Platelet Volume 9.3 Monocytes # 0.8 Monocytes % 10.3 Neutrophils # 5.7 Neutrophils % 70.1 Nucleated Red Blood Cells # 0.0 Nucleated Red Blood Cells % 0.0 Platelet Count 259 Potassium Level 4.7 Red Blood Count 2.78 L Red Cell Distribution Width 13.0 Sodium Level 137 White Blood Count 8.1 Test 07/21/16 11:54 Bedside Glucose 147 Medications Medications Current Medications IV Flush (NS 10 ml) 10 ml PRN PRN IV FLUSH LINE; Start 06/13/16 at 19:00 Aspirin (Halfprin) 81 mg DAILY PO Last administered on 07/21/16 10:36; Admin Dose 81 MG; Start 06/14/16 at 09:00 Atorvastatin Calcium (Lipitor) 10 mg QHS PO Last administered on 07/20/16 22: 14; Admin Dose 10 MG; Start 06/14/16 at 21:00 Cholecalciferol (Vitamin D) 400 units DAILY PO Last administered on 07/21/16 09:00; Admin Dose 400 UNITS; Start 06/14/16 at 09:00 Ferrous Sulfate (Ferrous Sulfate (Ec)) 325 mg BID PO Last administered on 10:37; Admin Dose 325 MG; Start 06/14/16 at 09:00 Acetaminophen (Tylenol Tab) 500 mg Q4H PRN PO PAIN AND OR ELEVATED TEMP Last administered on 07/05/16 05:49; Admin Dose 500 MG; Start 06/14/16 at 00:00 Miscellaneous Information 1 ea NOTE XX Last administered on 06/18/16 07:57; Admin Dose 1 EA; Start 06/14/16 at 00:30 Glucose (Glutose) 15 gm Q15M PRN PO DECREASED GLUCOSE; Start 06/14/16 at 00:30 Glucose (Glutose) 22.5 gm Q15M PRN PO DECREASED GLUCOSE; Start 06/14/16 at 00: 30 Dextrose (D50w Syringe) 25 ml Q15M PRN IV DECREASED GLUCOSE Last administered on 07/17/16 12:47; Admin Dose 25 ML; Start 06/14/16 at 00:30 Dextrose (D50w Syringe) 50 ml Q15M PRN IV DECREASED GLUCOSE; Start 06/14/16 at 00:30 Glucagon (Glucagen) 1 mg Q15M PRN IM DECREASED GLUCOSE; Start 06/14/16 at 00:30 Glucose (Glutose) 15 gm Q15M PRN BUCCAL DECREASED GLUCOSE; Start 06/14/16 at 00 :30 Diagnostic Test (Pha) (Accucheck) 1 ea 02 XX Last administered on 07/11/16 01: 54; Admin Dose 1 EA; Start 06/14/16 at 02:00 Clonidine (Catapres) 0.2 mg Q8 PRN PO Systolic >160 Last administered on 02:29; Admin Dose 0.2 MG; Start 06/14/16 at 13:00 Promethazine HCl/ Codeine (Phenergan/ Codeine) 5 ml Q4H PRN PO COUGH Last administered on 06/21/16 18:04; Admin Dose 5 ML; Start 06/15/16 at 00:00 Pantoprazole (Protonix Tab) 40 mg DAILY@06 PO Last administered on 07/21/16 05 :43; Admin Dose 40 MG; Start 06/16/16 at 06:00 Diphenhydramine HCl (Benadryl) 25 mg HS PRN PO INSOMNIA Last administered on 22:36; Admin Dose 25 MG; Start 06/15/16 at 21:30 Hydralazine HCl (Apresoline) 100 mg Q8 PO Last administered on 07/21/16 05:43 ; Admin Dose 100 MG; Start 06/19/16 at 13:00 Bisacodyl (Dulcolax) 10 mg DAILY PRN PO CONSTIPATION Last administered on 10:33; Admin Dose 10 MG; Start 06/22/16 at 11:30 Benazepril HCl (Lotensin) 40 mg BID PO Last administered on 07/21/16 10:36; Admin Dose 40 MG; Start 06/23/16 at 21:00 Hydralazine HCl (Apresoline) 20 mg Q4H PRN IV for SBP more than 170 Last administered on 07/20/16 14:13; Admin Dose 20 MG; Start 06/28/16 at 05:00 Ondansetron HCl (Zofran Inj) 4 mg Q6H PRN IV NAUSEA AND/OR VOMITING Last administered on 07/20/16 22:36; Admin Dose 4 MG; Start 06/28/16 at 05:00 Lorazepam (Ativan) 1 mg Q6H PRN IV ANXIETY Last administered on 07/18/16 21:38 ; Admin Dose 1 MG; Start 06/28/16 at 05:00 Cyclobenzaprine HCl (Flexeril) 10 mg TID PO Last administered on 07/21/16 10: 37; Admin Dose 10 MG; Start 07/03/16 at 21:00 Hydromorphone HCl (Dilaudid) 0.5 mg Q4H PRN IV PAIN Last administered on 15:38; Admin Dose 0.5 MG; Start 07/07/16 at 22:00 Hydromorphone HCl (Dilaudid) 1 mg Q3H PRN IV PAIN Last administered on 11:55; Admin Dose 1 MG; Start 07/07/16 at 22:00 Metoprolol Tartrate (Lopressor) 75 mg BID PO Last administered on 07/21/16 10: 38; Admin Dose 75 MG; Start 07/09/16 at 21:00 Isoniazid (Isoniazid) 300 mg DAILY PO Last administered on 07/20/16 09:18; Admin Dose 300 MG; Start 07/12/16 at 15:00 Rifampin (Rifampin) 600 mg DAILY PO Last administered on 07/20/16 09:17; Admin Dose 600 MG; Start 07/12/16 at 15:00 Clonidine (Catapres) 0.1 mg TID PO Last administered on 07/14/16 09:34; Admin Dose 0.1 MG; Start 07/13/16 at 21:00; Status Future Hold Ethambutol HCl (Myambutol) 1,200 mg TuThSa@18 PO Last administered on 21:33; Admin Dose 1,200 MG; Start 07/15/16 at 18:00 Pyrazinamide (Pyrazinamide) 1,500 mg TuThSa@18 PO Last administered on 21:33; Admin Dose 1,500 MG; Start 07/15/16 at 18:00 Pyridoxine HCl (Vitamin B6) 100 mg DAILY PO Last administered on 07/21/16 10: 35; Admin Dose 100 MG; Start 07/15/16 at 16:00 Doxazosin Mesylate (Cardura) 2 mg BID PO Last administered on 07/21/16 10:37; Admin Dose 2 MG; Start 07/16/16 at 21:00 Insulin Glargine (Lantus) 6 unit DAILY@20 SC Last administered on 07/20/16 22: 23; Admin Dose 6 UNIT; Start 07/17/16 at 20:00 Nifedipine (Procardia Xl) 60 mg BID PO Last administered on 07/21/16 10:36; Admin Dose 60 MG; Start 07/17/16 at 21:00 Megestrol Acetate (Megace) 80 mg BID PO Last administered on 07/21/16 09:00; Admin Dose 80 MG; Start 07/20/16 at 21:00 Procedures Procedures CXR 07/21/16: 1. Right lower lobe pneumonia with a right pleural effusion. These findings are little changed compared to 07/15/2016. 2. Status post median sternotomy. 3. Atherosclerotic vascular disease. 4. PICC line catheter enters through the left arm with its distal end is not clearly identified be the level of the pacemaker in the area of the left axilla. NORI JORGENSEN NP Jul 21, 2016 14:16
[2016-07-21] MEDS ORDERED: LANT3I SC (15:41)
[2016-07-21] MEDS ORDERED: NOVO3I SC (15:41)
[2016-07-21] MEDS ORDERED: CLOP75TA4 PO (15:41)
[2016-07-21] MEDS ORDERED: CALC667C PO (15:41)
[2016-07-21] MEDS ORDERED: NIFE60TA11 PO (15:41)
[2016-07-21] MEDS ORDERED: SEVE800T7 PO (15:41)
[2016-07-21] MEDS ORDERED: ATOR10TA65 PO (15:41)
[2016-07-21] MEDS ORDERED: ASPI-664 PO (15:41)
[2016-07-21] MEDS ORDERED: METO-448 PO (15:41)
[2016-07-21] MEDS ORDERED: FER325 PO (15:42)
[2016-07-21] MEDS ORDERED: HYDR-906 PO (15:51)
--- NOTE | 2016-07-21 17:05 | CONS ---
Date/Time of Note Date/Time of Note DATE: 07/21/16 TIME: 17:03 Assessment/Plan Assessment/Plan Chief Complaint/Hosp Course IMPRESSION: 1. Abnormal electrocardiogram, assess for acute coronary syndrome.-negative troponin x 3 2. History of recent negative stress, May 2015. 3. History of percutaneous transluminal coronary angioplasty and stent placement in 2014 to the left main left anterior descending. No current chest pain. 4. Hypertension-very labile 5. History of dyslipidemia. 6. Pleural effusion, status post thoracentesis. 7. Possible pneumonia/cough-improved 8. Diabetes mellitus. 9. End-stage renal disease, on hemodialysis. 10. Had WCT-06/27 which was paced beats at approx 100. NO recurrence since .MAC infection/colonization? RECOMMENDATIONS: -Tele -Continue metoprolol -Continue Benazepril -Continue hydralazine/procardia -Increase cardura and follow up BP -Continue asa/statin/plavix -Consider abx's and f/u cx data -Follow volume status with HD for volume removal -Now on treatment for TB Problems: Consultation Date/Type/Reason Admit Date/Time Jun 13, 2016 at 14:48 Initial Consult Date 06/14/2016 Type of Consultation: Cardiology Reason for Consultation HTN Referring Provider: EVA COX MD Exam/Review of Systems Vital Signs Vitals Vital Signs Date Time Temp Pulse Resp B/P Pulse Ox O2 Delivery O2 Flow Rate FiO2 07/21/16 16:50 69 07/21/16 15:50 98.3 16 174/71 96 Intake and Output 07/20/16 07/20/16 07/21/16 15:00 23:00 07:00 Intake Total 360 ml 800 ml Balance 360 ml 800 ml Exam Review of Systems: CONSTITUTIONAL: No fevers, chills. PULMONARY: No sob CARDIOVASCULAR: No chest pain/palpitations GASTROINTESTINAL: No nausea/vomiting. GENITOURINARY: No hematuria/dysuria. MUSCULOSKELETAL: No myagias/arthalgias. PSYCHIATRIC: The patient denies depression. NEUROLOGIC: No weakness Constitutional: alert Psych: no complaints Head: normocephalic ENMT: mucosa pink and moist Neck: jvd (8 cm water), supple Respiratory: diminished breath sounds (at bases/B) Cardiovascular: regular rate and rhythm Gastrointestinal: non-tender, soft Musculoskeletal: muscle tone (normal) Extremities: edema (none) Neurological: lethargic Results Result Diagram: 07/21/16 0640 07/21/16 0640 Results 24 hrs Laboratory Tests Test 07/20/16 17:13 07/20/16 20:29 07/21/16 06:40 07/21/16 08:09 Bedside Glucose 161 151 105 Anion Gap 15 Basophils # 0.1 Basophils % 1.6 Blood Urea Nitrogen 56 H Calcium Level 9.8 Carbon Dioxide Level 30 Chloride Level 97 Creatinine 7.30 H Eosinophils # 0.4 Eosinophils % 4.3 Glucose Level 89 Hematocrit 27.6 L Hemoglobin 8.8 L Lymphocytes # 1.1 Lymphocytes % 13.5 L Mean Corpuscular Hemoglobin 31.7 Mean Corpuscular Hemoglobin Concent 31.9 L Mean Corpuscular Volume 99.3 Mean Platelet Volume 9.3 Monocytes # 0.8 Monocytes % 10.3 Neutrophils # 5.7 Neutrophils % 70.1 Nucleated Red Blood Cells # 0.0 Nucleated Red Blood Cells % 0.0 Platelet Count 259 Potassium Level 4.7 Red Blood Count 2.78 L Red Cell Distribution Width 13.0 Sodium Level 137 White Blood Count 8.1 Test 07/21/16 11:54 Bedside Glucose 147 Medications Medications Current Medications IV Flush (NS 10 ml) 10 ml PRN PRN IV FLUSH LINE; Start 06/13/16 at 19:00 Aspirin (Halfprin) 81 mg DAILY PO Last administered on 07/21/16 10:36; Admin Dose 81 MG; Start 06/14/16 at 09:00 Atorvastatin Calcium (Lipitor) 10 mg QHS PO Last administered on 07/20/16 22: 14; Admin Dose 10 MG; Start 06/14/16 at 21:00 Cholecalciferol (Vitamin D) 400 units DAILY PO Last administered on 07/21/16 09:00; Admin Dose 400 UNITS; Start 06/14/16 at 09:00 Ferrous Sulfate (Ferrous Sulfate (Ec)) 325 mg BID PO Last administered on 10:37; Admin Dose 325 MG; Start 06/14/16 at 09:00 Acetaminophen (Tylenol Tab) 500 mg Q4H PRN PO PAIN AND OR ELEVATED TEMP Last administered on 07/05/16 05:49; Admin Dose 500 MG; Start 06/14/16 at 00:00 Miscellaneous Information 1 ea NOTE XX Last administered on 06/18/16 07:57; Admin Dose 1 EA; Start 06/14/16 at 00:30 Glucose (Glutose) 15 gm Q15M PRN PO DECREASED GLUCOSE; Start 06/14/16 at 00:30 Glucose (Glutose) 22.5 gm Q15M PRN PO DECREASED GLUCOSE; Start 06/14/16 at 00: 30 Dextrose (D50w Syringe) 25 ml Q15M PRN IV DECREASED GLUCOSE Last administered on 07/17/16 12:47; Admin Dose 25 ML; Start 06/14/16 at 00:30 Dextrose (D50w Syringe) 50 ml Q15M PRN IV DECREASED GLUCOSE; Start 06/14/16 at 00:30 Glucagon (Glucagen) 1 mg Q15M PRN IM DECREASED GLUCOSE; Start 06/14/16 at 00:30 Glucose (Glutose) 15 gm Q15M PRN BUCCAL DECREASED GLUCOSE; Start 06/14/16 at 00 :30 Diagnostic Test (Pha) (Accucheck) 1 ea 02 XX Last administered on 07/11/16 01: 54; Admin Dose 1 EA; Start 06/14/16 at 02:00 Clonidine (Catapres) 0.2 mg Q8 PRN PO Systolic >160 Last administered on 02:29; Admin Dose 0.2 MG; Start 06/14/16 at 13:00 Promethazine HCl/ Codeine (Phenergan/ Codeine) 5 ml Q4H PRN PO COUGH Last administered on 06/21/16 18:04; Admin Dose 5 ML; Start 06/15/16 at 00:00 Pantoprazole (Protonix Tab) 40 mg DAILY@06 PO Last administered on 07/21/16 05 :43; Admin Dose 40 MG; Start 06/16/16 at 06:00 Diphenhydramine HCl (Benadryl) 25 mg HS PRN PO INSOMNIA Last administered on 22:36; Admin Dose 25 MG; Start 06/15/16 at 21:30 Hydralazine HCl (Apresoline) 100 mg Q8 PO Last administered on 07/21/16 15:39 ; Admin Dose 100 MG; Start 06/19/16 at 13:00 Bisacodyl (Dulcolax) 10 mg DAILY PRN PO CONSTIPATION Last administered on 10:33; Admin Dose 10 MG; Start 06/22/16 at 11:30 Benazepril HCl (Lotensin) 40 mg BID PO Last administered on 07/21/16 10:36; Admin Dose 40 MG; Start 06/23/16 at 21:00 Hydralazine HCl (Apresoline) 20 mg Q4H PRN IV for SBP more than 170 Last administered on 07/20/16 14:13; Admin Dose 20 MG; Start 06/28/16 at 05:00 Ondansetron HCl (Zofran Inj) 4 mg Q6H PRN IV NAUSEA AND/OR VOMITING Last administered on 07/20/16 22:36; Admin Dose 4 MG; Start 06/28/16 at 05:00 Lorazepam (Ativan) 1 mg Q6H PRN IV ANXIETY Last administered on 07/18/16 21:38 ; Admin Dose 1 MG; Start 06/28/16 at 05:00 Cyclobenzaprine HCl (Flexeril) 10 mg TID PO Last administered on 07/21/16 15: 39; Admin Dose 10 MG; Start 07/03/16 at 21:00 Hydromorphone HCl (Dilaudid) 0.5 mg Q4H PRN IV PAIN Last administered on 15:38; Admin Dose 0.5 MG; Start 07/07/16 at 22:00 Hydromorphone HCl (Dilaudid) 1 mg Q3H PRN IV PAIN Last administered on 11:55; Admin Dose 1 MG; Start 07/07/16 at 22:00 Metoprolol Tartrate (Lopressor) 75 mg BID PO Last administered on 07/21/16 10: 38; Admin Dose 75 MG; Start 07/09/16 at 21:00 Isoniazid (Isoniazid) 300 mg DAILY PO Last administered on 07/20/16 09:18; Admin Dose 300 MG; Start 07/12/16 at 15:00 Rifampin (Rifampin) 600 mg DAILY PO Last administered on 07/20/16 09:17; Admin Dose 600 MG; Start 07/12/16 at 15:00 Clonidine (Catapres) 0.1 mg TID PO Last administered on 07/14/16 09:34; Admin Dose 0.1 MG; Start 07/13/16 at 21:00; Status Future Hold Ethambutol HCl (Myambutol) 1,200 mg TuThSa@18 PO Last administered on 21:33; Admin Dose 1,200 MG; Start 07/15/16 at 18:00 Pyrazinamide (Pyrazinamide) 1,500 mg TuThSa@18 PO Last administered on 21:33; Admin Dose 1,500 MG; Start 07/15/16 at 18:00 Pyridoxine HCl (Vitamin B6) 100 mg DAILY PO Last administered on 07/21/16 10: 35; Admin Dose 100 MG; Start 07/15/16 at 16:00 Doxazosin Mesylate (Cardura) 2 mg BID PO Last administered on 07/21/16 10:37; Admin Dose 2 MG; Start 07/16/16 at 21:00 Insulin Glargine (Lantus) 6 unit DAILY@20 SC Last administered on 07/20/16 22: 23; Admin Dose 6 UNIT; Start 07/17/16 at 20:00 Nifedipine (Procardia Xl) 60 mg BID PO Last administered on 07/21/16 10:36; Admin Dose 60 MG; Start 07/17/16 at 21:00 Megestrol Acetate (Megace) 80 mg BID PO Last administered on 07/21/16 09:00; Admin Dose 80 MG; Start 07/20/16 at 21:00 SHERITA SCOTT 20, 2017 17:04
--- NOTE | 2016-07-21 17:34 | CONS ---
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 Problems: Consultation Date/Type/Reason Admit Date/Time Jun 13, 2016 at 14:48 Type of Consultation: RENAL Referring Provider: EVA COX MD 24 HR Interval Summary Constitutional: no complaints Exam/Review of Systems Vital Signs Vitals Vital Signs Date Time Temp Pulse Resp B/P Pulse Ox O2 Delivery O2 Flow Rate FiO2 07/21/16 16:50 69 07/21/16 15:50 98.3 16 174/71 96 Intake and Output 07/20/16 07/20/16 07/21/16 15:00 23:00 07:00 Intake Total 360 ml 800 ml Balance 360 ml 800 ml Exam Respiratory: clear to auscultation Cardiovascular: regular rate and rhythm Gastrointestinal: soft Musculoskeletal: nl extremities to inspection Extremities: normal pulses Results Result Diagram: 07/21/16 0640 07/21/16 0640 Results 24 hrs Laboratory Tests Test 07/20/16 20:29 07/21/16 06:40 07/21/16 08:09 07/21/16 11:54 Bedside Glucose 151 105 147 Anion Gap 15 Basophils # 0.1 Basophils % 1.6 Blood Urea Nitrogen 56 H Calcium Level 9.8 Carbon Dioxide Level 30 Chloride Level 97 Creatinine 7.30 H Eosinophils # 0.4 Eosinophils % 4.3 Glucose Level 89 Hematocrit 27.6 L Hemoglobin 8.8 L Lymphocytes # 1.1 Lymphocytes % 13.5 L Mean Corpuscular Hemoglobin 31.7 Mean Corpuscular Hemoglobin Concent 31.9 L Mean Corpuscular Volume 99.3 Mean Platelet Volume 9.3 Monocytes # 0.8 Monocytes % 10.3 Neutrophils # 5.7 Neutrophils % 70.1 Nucleated Red Blood Cells # 0.0 Nucleated Red Blood Cells % 0.0 Platelet Count 259 Potassium Level 4.7 Red Blood Count 2.78 L Red Cell Distribution Width 13.0 Sodium Level 137 White Blood Count 8.1 Medications Medications Current Medications IV Flush (NS 10 ml) 10 ml PRN PRN IV FLUSH LINE; Start 06/13/16 at 19:00 Aspirin (Halfprin) 81 mg DAILY PO Last administered on 07/21/16 10:36; Admin Dose 81 MG; Start 06/14/16 at 09:00 Atorvastatin Calcium (Lipitor) 10 mg QHS PO Last administered on 07/20/16 22: 14; Admin Dose 10 MG; Start 06/14/16 at 21:00 Cholecalciferol (Vitamin D) 400 units DAILY PO Last administered on 07/21/16 09:00; Admin Dose 400 UNITS; Start 06/14/16 at 09:00 Ferrous Sulfate (Ferrous Sulfate (Ec)) 325 mg BID PO Last administered on 10:37; Admin Dose 325 MG; Start 06/14/16 at 09:00 Acetaminophen (Tylenol Tab) 500 mg Q4H PRN PO PAIN AND OR ELEVATED TEMP Last administered on 07/05/16 05:49; Admin Dose 500 MG; Start 06/14/16 at 00:00 Miscellaneous Information 1 ea NOTE XX Last administered on 06/18/16 07:57; Admin Dose 1 EA; Start 06/14/16 at 00:30 Glucose (Glutose) 15 gm Q15M PRN PO DECREASED GLUCOSE; Start 06/14/16 at 00:30 Glucose (Glutose) 22.5 gm Q15M PRN PO DECREASED GLUCOSE; Start 06/14/16 at 00: 30 Dextrose (D50w Syringe) 25 ml Q15M PRN IV DECREASED GLUCOSE Last administered on 07/17/16 12:47; Admin Dose 25 ML; Start 06/14/16 at 00:30 Dextrose (D50w Syringe) 50 ml Q15M PRN IV DECREASED GLUCOSE; Start 06/14/16 at 00:30 Glucagon (Glucagen) 1 mg Q15M PRN IM DECREASED GLUCOSE; Start 06/14/16 at 00:30 Glucose (Glutose) 15 gm Q15M PRN BUCCAL DECREASED GLUCOSE; Start 06/14/16 at 00 :30 Diagnostic Test (Pha) (Accucheck) 1 ea 02 XX Last administered on 07/11/16 01: 54; Admin Dose 1 EA; Start 06/14/16 at 02:00 Clonidine (Catapres) 0.2 mg Q8 PRN PO Systolic >160 Last administered on 02:29; Admin Dose 0.2 MG; Start 06/14/16 at 13:00 Promethazine HCl/ Codeine (Phenergan/ Codeine) 5 ml Q4H PRN PO COUGH Last administered on 06/21/16 18:04; Admin Dose 5 ML; Start 06/15/16 at 00:00 Pantoprazole (Protonix Tab) 40 mg DAILY@06 PO Last administered on 07/21/16 05 :43; Admin Dose 40 MG; Start 06/16/16 at 06:00 Diphenhydramine HCl (Benadryl) 25 mg HS PRN PO INSOMNIA Last administered on 22:36; Admin Dose 25 MG; Start 06/15/16 at 21:30 Hydralazine HCl (Apresoline) 100 mg Q8 PO Last administered on 07/21/16 15:39 ; Admin Dose 100 MG; Start 06/19/16 at 13:00 Bisacodyl (Dulcolax) 10 mg DAILY PRN PO CONSTIPATION Last administered on 10:33; Admin Dose 10 MG; Start 06/22/16 at 11:30 Benazepril HCl (Lotensin) 40 mg BID PO Last administered on 07/21/16 10:36; Admin Dose 40 MG; Start 06/23/16 at 21:00 Hydralazine HCl (Apresoline) 20 mg Q4H PRN IV for SBP more than 170 Last administered on 07/20/16 14:13; Admin Dose 20 MG; Start 06/28/16 at 05:00 Ondansetron HCl (Zofran Inj) 4 mg Q6H PRN IV NAUSEA AND/OR VOMITING Last administered on 07/20/16 22:36; Admin Dose 4 MG; Start 06/28/16 at 05:00 Lorazepam (Ativan) 1 mg Q6H PRN IV ANXIETY Last administered on 07/18/16 21:38 ; Admin Dose 1 MG; Start 06/28/16 at 05:00 Cyclobenzaprine HCl (Flexeril) 10 mg TID PO Last administered on 07/21/16 15: 39; Admin Dose 10 MG; Start 07/03/16 at 21:00 Hydromorphone HCl (Dilaudid) 0.5 mg Q4H PRN IV PAIN Last administered on 15:38; Admin Dose 0.5 MG; Start 07/07/16 at 22:00 Hydromorphone HCl (Dilaudid) 1 mg Q3H PRN IV PAIN Last administered on 11:55; Admin Dose 1 MG; Start 07/07/16 at 22:00 Metoprolol Tartrate (Lopressor) 75 mg BID PO Last administered on 07/21/16 10: 38; Admin Dose 75 MG; Start 07/09/16 at 21:00 Isoniazid (Isoniazid) 300 mg DAILY PO Last administered on 07/20/16 09:18; Admin Dose 300 MG; Start 07/12/16 at 15:00 Rifampin (Rifampin) 600 mg DAILY PO Last administered on 07/20/16 09:17; Admin Dose 600 MG; Start 07/12/16 at 15:00 Clonidine (Catapres) 0.1 mg TID PO Last administered on 07/14/16 09:34; Admin Dose 0.1 MG; Start 07/13/16 at 21:00; Status Future Hold Ethambutol HCl (Myambutol) 1,200 mg TuThSa@18 PO Last administered on 21:33; Admin Dose 1,200 MG; Start 07/15/16 at 18:00 Pyrazinamide (Pyrazinamide) 1,500 mg TuThSa@18 PO Last administered on 21:33; Admin Dose 1,500 MG; Start 07/15/16 at 18:00 Pyridoxine HCl (Vitamin B6) 100 mg DAILY PO Last administered on 07/21/16 10: 35; Admin Dose 100 MG; Start 07/15/16 at 16:00 Insulin Glargine (Lantus) 6 unit DAILY@20 SC Last administered on 07/20/16 22: 23; Admin Dose 6 UNIT; Start 07/17/16 at 20:00 Nifedipine (Procardia Xl) 60 mg BID PO Last administered on 07/21/16 10:36; Admin Dose 60 MG; Start 07/17/16 at 21:00 Megestrol Acetate (Megace) 80 mg BID PO Last administered on 07/21/16 09:00; Admin Dose 80 MG; Start 07/20/16 at 21:00 Doxazosin Mesylate (Cardura) 3 mg BID PO ; Start 07/21/16 at 21:00 PAOLA MOODY MD Jul 21, 2016 17:34
[2016-07-21] MEDS ORDERED: DOXAZOSIN 1 MG TAB PO SCH (21:00)
== END 2016-07-21 19:00 | disposition home health service (06) | DRG 163 ==
LOC: E/R 13:57 → PP2 14:48 → TEL 06-14 17:06 → ICU 06-30 15:31 → MS4 07-02 00:56
PROVIDERS: ADMIT Internal Medicine; ATTEND Internal Medicine
PROC: 30233N1 Transfusion of Nonautologous Red Blood Cells into Peripheral Vein, Percutaneous Approach (ICD-10-PCS; 2016-06-13)
PROC: 02HV33Z Insertion of Infusion Device into Superior Vena Cava, Percutaneous Approach (ICD-10-PCS; 2016-06-13)
PROC: 5A1D60Z (ICD-10-PCS; 2016-06-14)
PROC: 0W993ZZ Drainage of Right Pleural Cavity, Percutaneous Approach (ICD-10-PCS; 2016-06-15)
PROC: 0BJQ4ZZ Inspection of Pleura, Percutaneous Endoscopic Approach (ICD-10-PCS; 2016-06-30)
PROC: 0BBN4ZX Excision of Right Pleura, Percutaneous Endoscopic Approach, Diagnostic (ICD-10-PCS; 2016-06-30)
PROC: 3E0L3GC Introduction of Other Therapeutic Substance into Pleural Cavity, Percutaneous Approach (ICD-10-PCS; 2016-06-30)
PROC: 0BJ08ZZ Inspection of Tracheobronchial Tree, Via Natural or Artificial Opening Endoscopic (ICD-10-PCS; 2016-06-30)
PROC: 0BDN4ZZ Extraction of Right Pleura, Percutaneous Endoscopic Approach (ICD-10-PCS; principal; 2016-06-30 15:30)
DX: J90 Pleural effusion, not elsewhere classified (principal); J18.9 Pneumonia, unspecified organism; I13.2 Hypertensive heart and chronic kidney disease with heart failure and with stage 5 chronic kidney disease, or end stage renal disease; N18.6 End stage renal disease; E11.21 Type 2 diabetes mellitus with diabetic nephropathy; J98.11 Atelectasis; I50.30 Unspecified diastolic (congestive) heart failure; Z95.0 Presence of cardiac pacemaker; Z95.1 Presence of aortocoronary bypass graft; Z95.5 Presence of coronary angioplasty implant and graft; I25.2 Old myocardial infarction; D64.9 Anemia, unspecified; E78.5 Hyperlipidemia, unspecified; Z99.2 Dependence on renal dialysis; Z91.15 Patient's noncompliance with renal dialysis; Z86.11 Personal history of tuberculosis
CPT/HCPCS: 36415; 36430; 36569; 36600; 71010; 71250; 76705; 76937; 76942; 80048; 80053; 80061; 80202; 82550; 82553; 82803; 82962; 83036; 83605; 83735; 84100; 84132; 84484; 85025; 85610; 85730; 86480; 86635; 86703; 86850; 86900; 86901; 86920; 87040; 87070; 87075; 87102; 87116; 88104; 88305; 88307; 88313; 88331; 89220; 90935; 93005; 93971; 94640; 94664; 96374; 96375; J0330; J0360; J0690; J0692; J1170; J1644; J1815; J2060; J2175; J2370; J2405; J2710; J3010; J3370; J7040; J7042; P9016

== ENCOUNTER 2016-07-24 03:53 | Inpatient (IN) | payer MEDICARE, OTHER ==
[~2016-07-24] VITALS: Ht 172.7 cm; Wt 61.0 kg
[~2016-07-24 03:53] MED LIST changes: +ASPI-664 PO; -ASPI81TA3 PO; +BENA40TA41 PO; +CALC667C PO; +CHOL400T10 PO; +CLOP75TA4 PO; +FAMO20TA18 PO; +FER325 PO; -HYDR-3498 PO; +HYDR-906 PO; -INSU100I15 SQ; +LANT3I SC; -LISI20TA11 PO; -METO-429 PO; +METO-448 PO; +NIFE60TA11 PO; -NIT4 SL; +NOVO3I SC; -SITA25TA3 PO; -TICA90TA PO
[2016-07-24 05:00] LABS: ADD SCAN DIFF NO
[2016-07-24] MEDS ORDERED: FENTAnyl 50 MCG/ML VIAL IV ONE (05:00)
[2016-07-24 05:04] LABS: BASOPHIL # 0.1 10^3/ul (0.0-0.1); BASOPHILS % 1.2 % (0.0-2.0); EOSINOPHILS # 0.2 10^3/ul (0.0-0.5); EOSINOPHILS % 2.2 % (0.0-7.0); HEMATOCRIT 21.6 % (42.0-52.0); HEMOGLOBIN 7.2 g/dl (14.0-18.0); LYMPHOCYTES # 1.3 10^3/ul (0.8-2.9); LYMPHOCYTES % 14.7 % (15.0-51.0); MEAN CORPUSCULAR HEMOGLOBIN 32.4 pg (29.0-33.0); MEAN CORPUSCULAR HGB CONC 33.3 g/dl (32.0-37.0); MEAN CORPUSCULAR VOLUME 97.3 fl (82.0-101.0); MEAN PLATELET VOLUME 9.7 fl (7.4-10.4); MONOCYTE # 0.8 10^3/ul (0.3-0.9); MONOCYTES % 9.2 % (0.0-11.0); NEUTROPHIL # 6.2 10^3/ul (1.6-7.5); PLATELET COUNT 230 10^3/UL (140-415); RED BLOOD COUNT 2.22 10^6/ul (4.70-6.10); RED CELL DISTRIBUTION WIDTH 12.8 % (11.5-14.5); WHITE BLOOD COUNT 8.6 10^3/ul (4.8-10.8)
[2016-07-24] MEDS ORDERED: HYDROmorphONE 1 MG/ML SYG IV STA ×4 (05:06→15:52)
--- NOTE | 2016-07-24 05:06 | RADRPT ---
PROCEDURE: XR Chest. CLINICAL INDICATION: Chest Pain. TECHNIQUE: Portable single view of the chest COMPARISON: 07/21 FINDINGS: There has been significant development of half alveolar infiltrate or edema of the right lower lobe and possibly right middle lobe. Right pleural effusion has increased. The heart size remains withi n normal limits. Pacemaker and median sternotomy wires again seen. Aortic calcification. Slightly increased interstitial markings again seen. No left pleural effusion is seen. Half IMPRESSION: New fairly prominent alveolar infiltrate of the right lung base suspicious for pneumonia with increa sed right pleural effusion. RPTAT: [facility] Physician Donnell Date Time Electronically viewed and signed by Nessa Copeland Physician on 07/24/2016 05:06 LE/
[2016-07-24 05:14] LABS: Arterial Base Excess -1.7 mmol/L (-3.0-3); Arterial COHb 0.3 % (0.0-3.0); Arterial Fraction of Oxyhgb 96.4 % (93.0-99.0); Arterial HCO3 22.9 mmol/L (22.0-26.0); Arterial MetHb 0.4 % (0.0-1.5); Arterial Total Hemglobin 7.8 g/dl (12.0-18.0); MODE NASAL CANNULA
[2016-07-24 05:16] LABS: ALBUMIN 2.7 g/dl (3.3-4.9); CHLORIDE 97 mmol/L (97-110); POTASSIUM 5.2 mmol/L (3.5-5.1); SODIUM 136 mmol/L (135-144)
[2016-07-24 05:17] LABS: INR 1.16; PROTIME 14.9 Sec (12.2-14.2); PT RATIO 1.2
[2016-07-24 05:18] LABS: PARTIAL THROMBOPLASTIN TIME 29.6 Sec (25.0-35.0)
[2016-07-24 05:19] LABS: ALANINE AMINOTRANSFERASE 24 IU/L (13-69); ALKALINE PHOSPHATASE 101 IU/L (42-121); ANION GAP 19 (8-16); ASPARTATE AMINO TRANSFERASE 68 IU/L (15-46); BILIRUBIN,INDIRECT 0.4 mg/dl (0-1.1); BILIRUBIN,TOTAL 0.4 mg/dl (0.2-1.3); BLOOD UREA NITROGEN 72 mg/dl (7-20); CARBON DIOXIDE 25 mmol/L (21-31); CREATININE 7.23 mg/dl (0.61-1.24); GLUCOSE 221 mg/dl (70-220); TOTAL PROTEIN 5.7 g/dl (6.1-8.1)
[2016-07-24 05:20] LABS: CALCIUM 9.1 mg/dl (8.4-10.2)
[2016-07-24] MEDS ORDERED: SOD CHLORIDE 0.9% 250 ML IV ONE (05:20)
[2016-07-24 05:34] LABS: TROPONIN-I < 0.012 ng/ml (0.00-0.12)
--- NOTE | 2016-07-24 06:11 | ERA ---
ER Documentation Chief Complaint Date/Time DATE: 07/24/16 TIME: 05:53 Chief Complaint coughing up bright red blood, h/o TB w/ unclear hx. respiratory precausions HPI 60-year-old male with a history of diabetes, hypertension, ESRD on hemodialysis , CAD, pacemaker, with recent admission for recurrent bilateral pleural effusion status post VATS procedure on [place] [address] Rutherford presenting today by ambulance after coughing up bright red blood. Reportedly per his he was diagnosed with latent TB with negative sputum AFB and is currently on rifampin. He had been doing well since discharge on July 21, 2016, however tonight he was root repeated the sneezing then all of a sudden started coughing blood. After that he had sudden onset of right-sided flank pain, 10 out of 10, with associated shortness of breath. He has never coughed up blood before. He has not had any recent fevers or chills. He was seen earlier yesterday in the TB clinic. ROS All systems reviewed and are negative except as per history of present illness. Medications Home Meds Active Scripts Hydrocodone/Acetaminophen (Arco 5-325 Tablet) 1 Each Tablet, 1 EACH PO Q4 for PAIN, #30 TAB Prov:CECILIA DAMICO 07/21/16 Ferrous Sulfate* (Ferrous Sulfate*) 325 Mg Tabec, 325 MG PO BID for 30 Days, TAB Prov:CECILIA DAMICO 07/21/16 Metoprolol Tartrate* (Lopressor*) 25 Mg Tab, 75 MG PO BID for 30 Days, TAB Prov:CECILIA DAMICO 07/21/16 Nifedipine (Nifedical Xl) 60 Mg Tab.er.24, 60 MG PO BID for 30 Days, TAB Prov:CECILIA DAMICO 07/21/16 Insulin Glargine* (Lantus*) 100 Unit/Ml Soln, 6 UNIT SC DAILY@20, #30 Prov:CECILIA DAMICO 07/21/16 Insulin Aspart* (Novolog Insulin Pen*) 100 Unit/Ml Soln, 2 UNIT SC WITH BREAKFAST LUNCH for 30 Days Prov:CECILIA DAMICO 07/21/16 Clopidogrel Bisulfate* (Clopidogrel Bisulfate*) 75 Mg Tablet, 75 MG PO DAILY, # 30 TAB Prov:CECILIA DAMICO 07/21/16 Aspirin* (Aspirin* EC) 81 Mg Tablet.dr, 81 MG PO DAILY, #30 TAB Prov:CECILIA DAMICO 07/21/16 Sevelamer Carbonate* (Renvela*) 800 Mg Tablet, 0.8 GM PO WITH MEALS for 30 Days , TAB Prov[facility] 07/21/16 Atorvastatin Calcium (Atorvastatin Calcium) 10 Mg Tablet, 10 MG PO QHS, #30 TAB Prov:[facility] FREEMANCECILIA 07/21/16 Calcium Acetate* (Calcium Acetate*) 667 Mg Capsule, 667 MG PO WITH MEALS for 90 Days, #270 CAP Prov[facility] 07/21/16 Benazepril Hcl* (Benazepril Hcl*) 40 Mg Tablet, 40 MG PO BID for 30 Days, TAB Prov:[facility] 06/24/16 Amlodipine Besylate* (Amlodipine Besylate*) 5 Mg Tablet, 5 MG PO BID for 30 Days , TAB Prov:[facility] 06/24/16 Reported Medications Cholecalciferol* (Vitamin D*) 400 Unit Tablet, 400 UNIT PO DAILY, TAB 06/13/16 Famotidine* (Famotidine*) 20 Mg Tablet, 20 MG PO DAILY, #30 TAB 06/13/16 Discontinued Reported Medications Insulin Lispro (Humalog) 100 Unit/1 Ml Cartridge, 0 SQ SLIDING SCALE Y for WITH MEALS 06/13/16 Insulin Glargine* (Lantus*) 100 Unit/Ml Soln, 18 UNIT SC QHS, #1 VIAL 06/13/16 Metoprolol Tartrate* (Lopressor*) 25 Mg Tab, 25 MG PO BID, #60 TAB 06/13/16 Allergies Allergies: Coded Allergies: No Known Allergy (Unverified , 06/15/16) PMhx/Soc History of Surgery: Yes (CABG, STENT x3, FISTULA RUE, PACEMAKER) Anesthesia Reaction: No Hx Neurological Disorder: No Hx Respiratory Disorders: No (Pnemonia, Pleural effusion) Hx Cardiac Disorders: Yes (HTN, IN) Hx Psychiatric Problems: No Hx Alcohol Use: No Hx Substance Use: No Hx Tobacco Use: No Smoking Status: Unknown if ever smoked FmHx Family History: No diabetes Physical Exam Vitals Vital Signs Date Time Temp Pulse Resp B/P Pulse Ox O2 Delivery O2 Flow Rate FiO2 07/24/16 06:18 72 18 102/65 100 Nasal Cannula 3.0 07/24/16 05:42 70 28 104/64 100 Nasal Cannula 3.0 07/24/16 05:18 70 18 75/59 100 Nasal Cannula 3.0 07/24/16 04:58 Nasal Cannula 3 07/24/16 04:58 Nasal Cannula 3.0 07/24/16 04:19 96.7 70 20 136/72 100 Physical Exam Const: Pale, ill-appearing, in distress secondary to pain, frequently coughing Head: Atraumatic Eyes: Pale conjunctiva ENT: Dry oral mucosa with dried blood Neck: Full range of motion. No meningismus. Resp: Significantly diminished breath sounds on the right side with auscultated rubs on expiration, left side with normal breath sounds with auscultated rubs on expiration. No wheezing Cardio: Sternotomy scar present, left-sided pacemaker palpated, regular rate and rhythm, no murmurs Abd: Soft, non tender, non distended. Normal bowel sounds Skin: No petechiae or rashes, generalized pallor, no jaundice Back: No midline or flank tenderness Ext: No cyanosis, or edema. Right upper extremity AV fistula Neur: Awake and alert Psych: Normal Mood and Affect Result Diagram: 07/24/1643907/24/16 0440 Results 24 hrs Laboratory Tests Test 07/24/16 04:03 07/24/16 04:40 Blood Gas Specimen Source Blood arterial Arterial Blood Date Drawn 07/24/2016 5:00:35 AM Arterial Blood pH (Temp corrected) 7.399 Arterial Blood pCO2 (Temp correct) 37.9mmhg Arterial Blood pO2 (Temp corrected) 105.7mmHG Arterial Blood HCO3 22.9mmol/L Arterial Blood Base Excess -1.7mmol/L Arterial Blood Oxygen Saturation 97.1mmHG Yoshi Test N/A Arterial Blood Gas Puncture Site LB Arterial Blood Carboxyhemoglobin 0.3% Arterial Blood Methemoglobin 0.4% Blood Gas A-a O2 Differential 42.0mmHg Oxyhemoglobin Percent 96.4% Total Hemoglobin 7.8g/dl Blood Gas Temperature 37.0C Blood Gas Modality NASAL CANNULA FiO2 27.0% Blood Gas Notified Whom UP Blood Gas Notified Time 07/24/2016 5:14:38 AM White Blood Count 8.610^3/ul Red Blood Count 2.2210^6/ul Hemoglobin 7.2g/dl Hematocrit 21.6% Mean Corpuscular Volume 97.3fl Mean Corpuscular Hemoglobin 32.4pg Mean Corpuscular Hemoglobin Concent 33.3g/dl Red Cell Distribution Width 12.8% Platelet Count 54069^3/UL Mean Platelet Volume 9.7fl Neutrophils % 72.0% Lymphocytes % 14.7% Monocytes % 9.2% Eosinophils % 2.2% Basophils % 1.2% Nucleated Red Blood Cells % 0.0/100WBC Neutrophils # 6.210^3/ul Lymphocytes # 1.310^3/ul Monocytes # 0.810^3/ul Eosinophils # 0.210^3/ul Basophils # 0.110^3/ul Nucleated Red Blood Cells # 0.010^3/ul Prothrombin Time 14.9Sec Prothrombin Time Ratio 1.2 INR International Normalized Ratio 1.16 Activated Partial Thromboplast Time 29.6Sec Sodium Level 136mmol/L Potassium Level 5.2mmol/L Chloride Level 97mmol/L Carbon Dioxide Level 25mmol/L Anion Gap 19 Blood Urea Nitrogen 72mg/dl Creatinine 7.23mg/dl Glucose Level 221mg/dl Calcium Level 9.1mg/dl Total Bilirubin 0.4mg/dl Direct Bilirubin 0.00mg/dl Indirect Bilirubin 0.4mg/dl Aspartate Amino Transf (AST/SGOT) 68IU/L Alanine Aminotransferase (ALT/SGPT) 24IU/L Alkaline Phosphatase 101IU/L Troponin I < 0.012ng/ml Total Protein 5.7g/dl Albumin 2.7g/dl Globulin 3.00g/dl Albumin/Globulin Ratio 0.90 Current Medications Medications (Trade) Dose Ordered Sig/Meka Route PRN Reason Start Time Stop Time Status Last Admin Dose Admin Fentanyl (Sublimaze) 50 mcg ONCE ONCE IV 07/24/16 05:00 07/24/16 05:01 DC 07/24/16 04:50 Hydromorphone HCl 0.5 mg 0.5 mg ONCE STAT IV 07/24/16 05:06 07/24/16 05:07 DC 07/24/16 05:14 Sodium Chloride (NS) 250 ml @ 0 mls/hr Q0M ONCE IV 07/24/16 05:20 07/24/16 05:23 DC Hydromorphone HCl (Dilaudid) 0.5 mg ONCE STAT IV 07/24/16 06:11 07/24/16 06:12 DC 07/24/16 06:17 Lidocaine (Xylocaine 1% (Mdv) 20 ml) 20 ml ONCE ONCE SC 07/24/16 06:30 07/24/16 06:31 DC Procedures/MDM EKG: Rate/Rhythm: Atrial paced rhythm QRS, ST, T-waves: Nonspecific T-wave abnormality, no changes consistent w/ acute ischemia Impression: No evidence of ischemia or arrhythmia Chest x-ray: New fairly prominent alveolar infiltrate of the right lung base suspicious for pneumonia with increased right pleural effusion. Labs show anemia, evidence of chronic kidney disease, hyperkalemia Peripheral line placement by me: Nursing staff unable to obtain IV access. Location: Left EJ Technique: 18 gauge. [id number] with nursing assistance Results: Venous flow and easy flush Secured with transparent dressing. No complications. Central Line Placement by me: Patient consented, sterilely draped, full prep, gown, glove, mask, time out performed. Anesthesia: 1% lidocaine locally Location: Left femoral Device: Multiple lumen Technique: Seldinger technique. Secured with suture. Results: Venous return from all ports with easy saline flush. No complications. Guide wire retrieved and disposed of. ED Ultrasound: Central line placed by me using concurrent ultrasound guidance. Real time image archived in the medical record confirms vascular anatomy. Patient is presenting with sudden onset right flank pain with shortness of breath. His vitals are stable and he is normoxic. I suspect right pneumothorax versus recurrent effusion. Chest x-ray confirmed right-sided moderate-sized effusion. I looked at his chest x-ray from 3 days ago and it was normal. I suspect his symptoms are likely secondary to this. While the patient was being given IV fluids, his right chest tube site started leaking bloody fluid. I have a low suspicion for empyema or pneumonia at this time. I do suspect a recurrent bloody pleural effusion. I called Dr. Rutherford, the patient's cardiothoracic surgeon who did the VATS procedure, and he recommended placement of the chest tube by IR. This was ordered. He will see the patient today. Given the patient's poor IV access, a central line was placed in case of rapid decompensation. 1 unit of PRBCs were ordered. Another unit was crossmatched. Family and patient were updated on the plan. The patient will be admitted to the ICU with cardiothoracic consult. Critical Care Time: 45 minutes Treatments/Evaluations: Close monitoring and treatment of unstable vital signs, cardiorespiratory, and neurologic status, while maintaining tight balance of fluid, respiratory, and cardiac interventions. This time includes discussing the case with the patient and the patients family. This time does not include all procedures stated elsewhere in this record. This time also includes reviewing old records, labs and radiological studies. This time includes examining and re-examining the patient. Additionally, this time also includes arranging care with admitting and consulting physicians. Departure Diagnosis: Primary Impression: Pleural effusion Additional Impressions: Hemoptysis Anemia Qualified Code: D64.89 - Anemia due to other cause, not classified Hyperkalemia ESRD (end stage renal disease) on dialysis Condition: Serious LISBETH AUGUSTIN MD Jul 24, 2016 06:11
[2016-07-24] MEDS ORDERED: LIDOCAINE 1% (MDV) 20 ML INJ SC ONE (06:30)
--- NOTE | 2016-07-24 07:35 | RADRPT ---
PROCEDURE: XR Pelvis. CLINICAL INDICATION: Central line placement TECHNIQUE: Single AP view of the pelvis. COMPARISON: No prior studies are available for comparison. FINDINGS: There is a left femoral central venous catheter with tip at the left mid sacrum. The osseous struct ures demonstrate normal alignment and mineralization. No acute fracture or dislocation is seen. Th e femoral acetabular joints demonstrate mild to moderate joint space narrowing with osteophyte forma tion The sacroiliac joints are grossly unremarkable. Vascular calcifications are seen within the so ft tissues. IMPRESSION: 1. Left femoral central venous catheter in place. 2. Mild to moderate bilateral hip arthrosis. 3. Arterial atherosclerosis. RPTAT: HH .Alcira Velasquez MD, MD Date Time Electronically viewed and signed by .Alcira Velasquez MD, on 07/24/2016 07:35 .G/
[2016-07-24] MEDS ORDERED: PYRI50TA14 PO (08:22)
[2016-07-24] MEDS ORDERED: ETHA400T25 PO (08:22)
[2016-07-24] MEDS ORDERED: ISON300T72 PO (08:23)
[2016-07-24] MEDS ORDERED: PYRA500T11 PO (08:24)
[2016-07-24] MEDS ORDERED: RIFA300C53 PO (08:25)
[2016-07-24] MEDS ORDERED: ONDANSETRON 4 MG INJ ONE (08:44)
[2016-07-24] MEDS ORDERED: ONDANSETRON 4 MG INJ IV STA ×2 (08:44→15:52)
--- NOTE | 2016-07-24 12:45 | RADRPT ---
PROCEDURE: US Chest. CLINICAL INDICATION: Shortness of breath. TECHNIQUE: Ultrasound of the right hemithorax was performed in the axial and sagittal planes. COMPARISON: Chest x-ray done earlier the same day. FINDINGS: There is consolidated lung at the right base. There is only minimal echogenic fluid at this site. T horacentesis was not performed. IMPRESSION: 1. Consolidated right lung base with only minimal echogenic fluid adjacent to the consolidated lung . 2. Thoracentesis was not performed. RPTAT: QQ .Robby Bennett MD, MD Date Time Electronically viewed and signed by .Robby Bennett MD, MD on 07/24/2016 12:44 .R/
[2016-07-24] MEDS ORDERED: ACETAMINOPHEN 325 MG TAB PO PRN (13:00)
[2016-07-24] MEDS: ONDANSETRON 4 MG INJ IV PRN ×2 (13:08→19:40)
--- NOTE | 2016-07-24 14:40 | CONS ---
Date/Time of Note Date/Time of Note DATE: 07/24/16 TIME: 14:35 Assessment/Plan Assessment/Plan Additional Assessment/Plan Chest x-ray was reviewed from today which is showing recurrence of significant right pleural effusion. Assessment recommendations; 1. Patient admitted for recurrent right pleural effusion. 2. Multiple other comorbidities as outlined above. Namely end-stage renal disease, CHF. Cardiology. Hypertension. Diabetes. 3. Pleurodesis failure. 4. Hemoptysis of uncertain etiology at this point. Pulmonary tuberculosis is highly unlikely. Continue current treatment. Patient will need to have a Pleurx catheter placed in the right pleural space. He is not a candidate for any further pleurodesis attempts. Consultation Date/Type/Reason Admit Date/Time Date of Consultation: Jul 24, 2016 Type of Consultation: Pulmonary Reason for Consultation Pulmonary consultation obtained for evaluation of shortness of breath. History presenting his; patient is a 60-year-old oriented male who came into the emergency room today with a 2 hour history of coughing up of blood as well as shortness of breath. Morning the patient's the patient also has been having drainage through the recent right chest surgery. Patient complains of mild shortness of breath. But denies any chest pain, any fever chills or any nausea anymore but the patient did have an episode of emesis this morning. Next Past medical history; 1. Patient recently admitted for bilateral pleural effusions had a very prolonged stay over here and subsequently underwent right VATS procedure with pleurodesis. 2. End-stage renal disease on hemodialysis. 3. History of diabetes. 4. History of hypertension. 5. History of cardiac arrhythmia, status post pacemaker. 6. History of coronary artery bypass surgery. 7. Cardiomyopathy Medications; were reviewed. Allergies; are none. Social history; most of any smoking alcohol or drug abuse. Family history: Patient is , has supportive family. Various family members have history of diabetes hypertension and heart disease. Occupational history; patient on disability. Review of systems; denies any headache, visual changes. Any sinus symptoms. Any hearing loss. Any seizures. Denies any chest pain. Complains of mild shortness of breath. Denies any wheezing. As of scant cough with hemoptysis from early this morning. Denies any nausea. Patient did have emesis 1 this morning. Denies abdominal pain. Diarrhea, melena, hematochezia. Any edema. Complains of orthopnea. Complains of drainage to the right recent right chest surgery site. Next General exam; elderly male, currently in no distress. Awake and alert. Past Surgical History Past Surgical Hx: no surgical history, angioplasty Social History Smoking Status: Unknown if ever smoked Exam/Review of Systems Vital Signs Vitals Vital Signs Date Time Temp Pulse Resp B/P Pulse Ox O2 Delivery O2 Flow Rate FiO2 07/24/16 12:00 98.0 70 15 157/75 100 Nasal Cannula 2.0 Exam HEENT exam; supple neck, positive JVD. Bilateral intraocular lens implants. Fair dentition. No neck masses. No thyromegaly. No lymphadenopathy. Chest examination; there is a well-healed sternal scar. S1-S2 audible, no murmurs. Regular rhythm. Diminished breath on lung bases bilaterally more pronounced in the right lung. The dressing applied over the right posterior chest wall. There is a pacemaker in the left chest wall. Abdomen examination of Daniel soft, no organomegaly nontender bowel sounds audible. Extremity exam is; trace peripheral edema. Pulses 1+ bilaterally. There is no clubbing. [employer] examination; cranial nerves are intact. No motor deficit. Results Result Diagram: 07/24/16 0440 07/24/16 0440 Results 24 hrs Laboratory Tests Test 07/24/16 04:03 07/24/16 04:40 Blood Gas Specimen Source Blood arterial Arterial Blood Date Drawn 07/24/2016 5:00:35 AM Arterial Blood pH (Temp corrected) 7.399 Arterial Blood pCO2 (Temp correct) 37.9 Arterial Blood pO2 (Temp corrected) 105.7 H Arterial Blood HCO3 22.9 Arterial Blood Base Excess -1.7 Arterial Blood Oxygen Saturation 97.1 Yoshi Test N/A Arterial Blood Gas Puncture Site LB Arterial Blood Carboxyhemoglobin 0.3 Arterial Blood Methemoglobin 0.4 Blood Gas A-a O2 Differential 42.0 H Oxyhemoglobin Percent 96.4 Total Hemoglobin 7.8 L Blood Gas Temperature 37.0 Blood Gas Modality NASAL CANNULA FiO2 27.0 Blood Gas Notified Whom UP Blood Gas Notified Time 07/24/2016 5:14:38 AM White Blood Count 8.6 Red Blood Count 2.22 #L Hemoglobin 7.2 L Hematocrit 21.6 #L Mean Corpuscular Volume 97.3 Mean Corpuscular Hemoglobin 32.4 Mean Corpuscular Hemoglobin Concent 33.3 Red Cell Distribution Width 12.8 Platelet Count 230 Mean Platelet Volume 9.7 Neutrophils % 72.0 Lymphocytes % 14.7 L Monocytes % 9.2 Eosinophils % 2.2 Basophils % 1.2 Nucleated Red Blood Cells % 0.0 Neutrophils # 6.2 Lymphocytes # 1.3 Monocytes # 0.8 Eosinophils # 0.2 Basophils # 0.1 Nucleated Red Blood Cells # 0.0 Prothrombin Time 14.9 H Prothrombin Time Ratio 1.2 INR International Normalized Ratio 1.16 Activated Partial Thromboplast Time 29.6 Sodium Level 136 Potassium Level 5.2 H Chloride Level 97 Carbon Dioxide Level 25 Anion Gap 19 H Blood Urea Nitrogen 72 H Creatinine 7.23 H Glucose Level 221 H Calcium Level 9.1 Total Bilirubin 0.4 Direct Bilirubin 0.00 Indirect Bilirubin 0.4 Aspartate Amino Transf (AST/SGOT) 68 H Alanine Aminotransferase (ALT/SGPT) 24 Alkaline Phosphatase 101 Troponin I < 0.012 Total Protein 5.7 L Albumin 2.7 L Globulin 3.00 Albumin/Globulin Ratio 0.90 Medications Medications Current Medications Pantoprazole (Protonix Iv) 40 mg DAILY ONCE IV ; Start 07/24/16 at 14:30; Stop 07/24/16 at 14:31; Status BOONE GARCES Jul 24, 2016 14:40
--- NOTE | 2016-07-24 14:59 | HP ---
Date/Time of Note Date/Time of Note DATE: 07/24/16 TIME: 13:37 Assessment/Plan VTE Prophylaxis VTE Prophylaxis Intervention: SCD's Lines/Catheters IV Catheter Type (from Nrsg): Saline Lock Assessment/Plan Assessment/Plan -Pleural effusion. 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 -per ID- Dr Tucker notified - Hx CAD - sp Pacemaker - Cardiolgy consult- Dr De Santiago notified Further recommendations depend upon patient clinical course. Dw Dr Price/ staff/. HPI/ROS Admit Date/Time Admit Date/Time Hx of Present Illness coughing up bright red blood, h/o TB w/ unclear hx. respiratory precausions ROS All systems reviewed and are negative except as per history of present illness. Medications Home Meds Active Scripts Hydrocodone/Acetaminophen ([place] 5-325 Tablet) 1 Each Tablet, 1 EACH PO Q4 for PAIN, #30 TAB Prov:CECILIA DAMICO 07/21/16 Ferrous Sulfate* (Ferrous Sulfate*) 325 Mg Tabec, 325 MG PO BID for 30 Days, TAB Prov:CECILIA DAMICO 07/21/16 Metoprolol Tartrate* (Lopressor*) 25 Mg Tab, 75 MG PO BID for 30 Days, TAB Prov:JASON DAMICOA 07/21/16 Nifedipine (Nifedical Xl) 60 Mg Tab.er.24, 60 MG PO BID for 30 Days, TAB Prov:CECILIA DAMICO 07/21/16 Insulin Glargine* (Lantus*) 100 Unit/Ml Soln, 6 UNIT SC DAILY@20, #30 Prov:CECILIA DAMICO 07/21/16 Insulin Aspart* (Novolog Insulin Pen*) 100 Unit/Ml Soln, 2 UNIT SC WITH BREAKFAST LUNCH for 30 Days Prov:CECILIA DAMICO 07/21/16 Clopidogrel Bisulfate* (Clopidogrel Bisulfate*) 75 Mg Tablet, 75 MG PO DAILY, # 30 TAB Prov:CECILIA DAMICO 07/21/16 Aspirin* (Aspirin* EC) 81 Mg Tablet.dr, 81 MG PO DAILY, #30 TAB Prov:JASON DAMICOA 07/21/16 Sevelamer Carbonate* (Renvela*) 800 Mg Tablet, 0.8 GM PO WITH MEALS for 30 Days , TAB Prov:CECILIA DAMICO 07/21/16 Atorvastatin Calcium (Atorvastatin Calcium) 10 Mg Tablet, 10 MG PO QHS, #30 TAB Prov:CHALINO DAMICOLANA 07/21/16 Calcium Acetate* (Calcium Acetate*) 667 Mg Capsule, 667 MG PO WITH MEALS for 90 Days, #270 CAP Prov:KRISTOPHERCHALINOCECILIA 07/21/16 Benazepril Hcl* (Benazepril Hcl*) 40 Mg Tablet, 40 MG PO BID for 30 Days, TAB Prov:CECILIA DAMICO 06/24/16 Amlodipine Besylate* (Amlodipine Besylate*) 5 Mg Tablet, 5 MG PO BID for 30 Days , TAB Prov:CECILIA DAMICO 06/24/16 Reported Medications Cholecalciferol* (Vitamin D*) 400 Unit Tablet, 400 UNIT PO DAILY, TAB 06/13/16 Famotidine* (Famotidine*) 20 Mg Tablet, 20 MG PO DAILY, #30 TAB 06/13/16 Discontinued Reported Medications Insulin Lispro (Humalog) 100 Unit/1 Ml Cartridge, 0 SQ SLIDING SCALE Y for WITH MEALS 06/13/16 Insulin Glargine* (Lantus*) 100 Unit/Ml Soln, 18 UNIT SC QHS, #1 VIAL 06/13/16 Metoprolol Tartrate* (Lopressor*) 25 Mg Tab, 25 MG PO BID, #60 TAB 06/13/16 Allergies Allergies: Coded Allergies: No Known Allergy (Unverified , 06/15/16) ROS Chief Complaint coughing up bright red blood, h/o TB w/ unclear hx. respiratory precausions The patient is a 60-year-old male patient well known to our team from a previous admission. The patient has history of coronary artery disease status post CABG in 2010, cardiac stent placement in 2013, ESRD on hemodialysis, hemodialysis, diabetic nephropathy, hypertension, pacemaker, with recent admission for recurrent bilateral pleural effusion status post VATS procedure on June [address] Rutherford presenting today by ambulance after coughing up bright red blood. Reportedly per his he was diagnosed with latent TB with negative sputum AFB and is currently on rifampin. Patient was discharged on July 21, 2016 and had been doing well since. But last night he was sneezing then all of a sudden started coughing blood, had sudden onset of right-sided flank pain, 10 out of 10, with associated shortness of breath. He has never coughed up blood before. He has not had any recent fevers or chills. He was seen earlier yesterday in the TB clinic.The patient denied any fever or chills. No reported abdominal pain. No reported nausea or vomiting, no reported leg edema. The patient denied any abdominal pain, no reported headache, dizziness, syncope. The patient reported the cough was dry. The patient did not have any sore throat. No reported vomiting or diarrhea. No reported dysuria or hematuria. ROS All systems reviewed and are negative except as per history of present illness. Medications Home Meds Active Scripts Hydrocodone/Acetaminophen ([place] 5-325 Tablet) 1 Each Tablet, 1 EACH PO Q4 for PAIN, #30 TAB Prov:CECILIA DAMICO 07/21/16 Ferrous Sulfate* (Ferrous Sulfate*) 325 Mg Tabec, 325 MG PO BID for 30 Days, TAB Prov:CECILIA DAMICO 07/21/16 Metoprolol Tartrate* (Lopressor*) 25 Mg Tab, 75 MG PO BID for 30 Days, TAB Prov:CECILIA DAMICO 07/21/16 Nifedipine (Nifedical Xl) 60 Mg Tab.er.24, 60 MG PO BID for 30 Days, TAB Prov:CECILIA DAMICO 07/21/16 Insulin Glargine* (Lantus*) 100 Unit/Ml Soln, 6 UNIT SC DAILY@20, #30 Prov:CECILIA DAMICO 07/21/16 Insulin Aspart* (Novolog Insulin Pen*) 100 Unit/Ml Soln, 2 UNIT SC WITH BREAKFAST LUNCH for 30 Days Prov:CECILIA DAMICO 07/21/16 Clopidogrel Bisulfate* (Clopidogrel Bisulfate*) 75 Mg Tablet, 75 MG PO DAILY, # 30 TAB Prov:CECILIA DAMICO 07/21/16 Aspirin* (Aspirin* EC) 81 Mg Tablet.dr, 81 MG PO DAILY, #30 TAB Prov:CECILIA DAMICO 07/21/16 Sevelamer Carbonate* (Renvela*) 800 Mg Tablet, 0.8 GM PO WITH MEALS for 30 Days , TAB Prov:CECILIA DAMICO 07/21/16 Atorvastatin Calcium (Atorvastatin Calcium) 10 Mg Tablet, 10 MG PO QHS, #30 TAB Prov:CECILIA DAMICO 07/21/16 Calcium Acetate* (Calcium Acetate*) 667 Mg Capsule, 667 MG PO WITH MEALS for 90 Days, #270 CAP [facility] 07/21/16 Benazepril Hcl* (Benazepril Hcl*) 40 Mg Tablet, 40 MG PO BID for 30 Days, TAB Prov:[facility] 06/24/16 Amlodipine Besylate* (Amlodipine Besylate*) 5 Mg Tablet, 5 MG PO BID for 30 Days , TAB Prov:CECILIA DAMICO 06/24/16 Reported Medications Cholecalciferol* (Vitamin D*) 400 Unit Tablet, 400 UNIT PO DAILY, TAB 06/13/16 Famotidine* (Famotidine*) 20 Mg Tablet, 20 MG PO DAILY, #30 TAB 06/13/16 Discontinued Reported Medications Insulin Lispro (Humalog) 100 Unit/1 Ml Cartridge, 0 SQ SLIDING SCALE Y for WITH MEALS 06/13/16 Insulin Glargine* (Lantus*) 100 Unit/Ml Soln, 18 UNIT SC QHS, #1 VIAL 06/13/16 Metoprolol Tartrate* (Lopressor*) 25 Mg Tab, 25 MG PO BID, #60 TAB 06/13/16 Allergies Allergies: Coded Allergies: No Known Allergy (Unverified , 06/15/16) Constitutional: other Eyes: no complaints ENT: no complaints Respiratory: other (right chest tube site bleeding), pleuritic pain, shortness of breath Gastrointestinal: no complaints Genitourinary: no complaints Skin: other Neurologic: no complaints Endocrine: no complaints Psychological: no complaints Immunologic: no complaints PMH/Family/Social Past Medical History PMhx/Soc History of Surgery: Yes (CABG, STENT x3, FISTULA RUE, PACEMAKER) Anesthesia Reaction: No Hx Neurological Disorder: No Hx Respiratory Disorders: No (Pnemonia, Pleural effusion) Hx Cardiac Disorders: Yes (HTN, NH) Hx Psychiatric Problems: No Hx Alcohol Use: No Hx Substance Use: No Hx Tobacco Use: No Smoking Status: Unknown if ever smoked FmHx Family History: No diabetes Past Surgical History Past Surgical Hx: no surgical history, angioplasty, other Social History Alcohol Use: none Smoking Status: Unknown if ever smoked Drug Use: other Exam/Review of Systems Vital Signs Vitals Vital Signs Date Time Temp Pulse Resp B/P Pulse Ox O2 Delivery O2 Flow Rate FiO2 07/24/16 12:00 98.0 70 15 157/75 100 Nasal Cannula 2.0 Exam Constitutional: alert, distress, well developed Head: atraumatic Eyes: PERRL, nl sclera ENMT: nl external ears & nose Neck: non-tender Respiratory: diminished breath sounds, other (more on right side than on left side.rti chest tube removal site dreesing noted- with bleeding. Dr Martinez is aware.) Cardiovascular: nl pulses Gastrointestinal: non-tender, soft Musculoskeletal: nl extremities to inspection Extremities: normal pulses Neurological: nl mental status, nl speech Skin: other Lymph: nontender Labs Result Diagram: 07/24/1643907/24/16439 Procedures Procedures EKG: Rate/Rhythm: Atrial paced rhythm QRS, ST, T-waves: Nonspecific T-wave abnormality, no changes consistent w/ acute ischemia Impression: No evidence of ischemia or arrhythmia Chest x-ray: New fairly prominent alveolar infiltrate of the right lung base suspicious for pneumonia with increased right pleural effusion. Labs show anemia, evidence of chronic kidney disease, hyperkalemia Central Line Placement PATRICIA RUEDA Jul 24, 2016 13:47
[2016-07-24] MEDS ORDERED: GLUCAGON 1 MG INJ IM PRN (16:00)
[2016-07-24] MEDS ORDERED: GLUCOSE GEL 15 GRAM TUBE BUCCAL PRN (16:00)
[2016-07-24] MEDS ORDERED: DEXTROSE 50% 50 ML SYRINGE IV PRN (16:00)
[2016-07-24] MEDS ORDERED: GLUCOSE GEL 15 GRAM TUBE PO PRN ×2 (16:00)
[2016-07-24] MEDS: PANTOPRAZOLE 40 MG INJ IV SCH (16:06)
[2016-07-24] MEDS: ISONIAZID 300 MG TAB PO SCH (16:07)
--- NOTE | 2016-07-24 16:13 | QN ---
Documentation Comment A/P ESRD HTN PL EFFUSION ASHD ANEMIA PLAN HD PAOLA MOODY MD Jul 24, 2016 16:13
[2016-07-24 16:45] LABS: HEMATOCRIT 24.7 % (42.0-52.0); HEMOGLOBIN 8.4 g/dl (14.0-18.0)
--- NOTE | 2016-07-24 17:24 | QN ---
Documentation Comment ID consult requested for pt (well known to our service) with probable pleural TB (recent negative AFB) recently discharged on renally dosed RIPE plus vitamin B6 supplement who now presents to ED with hemoptysis. Dr. Tucker to see pt soon. Thank you. NORI JORGENSEN NP Jul 24, 2016 17:24
[2016-07-24] MEDS: SEVELAMER CARBONATE 0.8 GM PKT PO SCH (18:00)
[2016-07-24] MEDS: CALCIUM ACETATE 667 MG CAP PO SCH (18:00)
[2016-07-24] MEDS: INSULIN ASPART [NOVOLOG] 3 ML PEN SC SCH ×2 (18:00→21:00)
[2016-07-24] MEDS: HYDROmorphONE 1 MG/ML SYG IV PRN (19:40)
[2016-07-24] MEDS: ETHAMBUTOL 400 MG TAB PO SCH (20:00)
[2016-07-24] MEDS: INSULIN GLARGINE [LANtus] 3 ML PEN SC SCH (20:00)
[2016-07-24] MEDS: PYRAZINAMIDE 500 MG TAB PO SCH (20:00)
--- NOTE | 2016-07-24 20:19 | CONS ---
DATE OF ADMISSION: 07/24/2016 DATE OF CONSULTATION: REASON FOR CONSULTATION: Right chest wall bleeding. HISTORY OF PRESENT ILLNESS: This is a 60-year-old male, who underwent a right video-assisted thorac ic surgery, recently was admitted because of pleural effusion, and was found to have chest wall blee ding. The patient's chest x-ray was done, which showed a right-sided pleural effusion; however, he went for an ultrasound-guided thoracentesis and adequate volume did not show up. The patient's righ t chest wall, chest tube site has been oozing; however, on my examination, all the bleeding has stop ped. PAST MEDICAL HISTORY: Hypertension, hyperlipidemia, end-stage renal disease, coronary artery diseas e, anemia, hemoptysis. PAST SURGICAL HISTORY: As above. ALLERGIES: NONE. MEDICATIONS: List reviewed, which includes: 1. Iron. 2. Nifedipine. 3. Insulin. 4. Plavix. 5. Aspirin. 6. Calcium. 7. Atorvastatin. 8. Metoprolol. REVIEW OF SYSTEMS: As per HPI. PHYSICAL EXAMINATION: VITAL SIGNS: Blood pressure is 93/59, pulse is 69, respirations 15, saturation 100% on 2 liters of oxygen. HEENT: Normocephalic, atraumatic. PERRLA. NECK: Supple. No JVD, no carotid bruits. CARDIOVASCULAR: Regular rate and rhythm. LUNGS: Clear. ABDOMEN: Soft. EXTREMITIES: Warm. CHEST: Right chest tube site examined. No evidence of any bleeding was noted. LABORATORY VALUES: Hemoglobin 8.4, white count 8.6, platelet count 220. INR is 1.16. IMPRESSION: Right chest tube site bleeding, which has now subsided completely. Would monitor the hemoglobin levels and stop the antiplatelet. Discussed with the referring physici ans. Dictated By: LILIA SOTO/MANJIT Conf#: [id number] DID#: [id number]
[2016-07-24 20:30] VITALS: TEMP 97.5
[2016-07-24] MEDS: BENAZEPRIL 40 MG TAB PO SCH (21:00)
[2016-07-24] MEDS: NIFEdipine (XL) 60 MG TAB PO SCH (21:00)
[2016-07-24] MEDS: METOPROLOL 25 MG TAB PO SCH (21:00)
[2016-07-24] MEDS: FERROUS SULFATE (EC) 325 MG TAB PO SCH (21:00)
[2016-07-24] MEDS: ATORVASTATIN 10 MG TAB PO SCH (21:00)
[2016-07-24] MEDS ORDERED: AMLODIPINE 5 MG TAB PO SCH (21:00)
[2016-07-24 21:30] VITALS: BP 84/56; PULSE 70; RESP 19
[2016-07-24 21:36] VITALS: PULSE 70
[2016-07-24 22:00] VITALS: BP 94/50; PULSE 74; RESP 14
--- NOTE | 2016-07-24 22:22 | QN ---
Documentation Comment [id number] PAOLA MOODY MD Jul 24, 2016 22:22
[2016-07-24] MEDS ORDERED: PANTOPRAZOLE 40 MG INJ IV ONE (22:30)
[2016-07-24 23:00] VITALS: BP 90/52; PULSE 70; RESP 13
[2016-07-24 23:16] VITALS: Ht 172.7 cm; Wt 61.0 kg
[2016-07-25] VITALS (32 sets, daily range): BP systolic 83–214; BP diastolic 45–84; PULSE 70–93; RESP 13–25
[2016-07-25 01:37] LABS: TROPONIN-I 0.019 ng/ml (0.00-0.12)
[2016-07-25 01:39] LABS: CK-MB 3.09 ng/ml (0.0-2.4)
[2016-07-25] MEDS: ONDANSETRON 4 MG INJ IV PRN ×4 (04:10→21:55)
[2016-07-25 04:33] LABS: ADD SCAN DIFF NO
[2016-07-25 04:44] LABS: ABNORMAL IP MESSAGE 1; BASOPHIL # 0.1 10^3/ul (0.0-0.1); BASOPHILS % 0.4 % (0.0-2.0); EOSINOPHILS % 0.1 % (0.0-7.0); LYMPHOCYTES # 1.2 10^3/ul (0.8-2.9); LYMPHOCYTES % 8.8 % (15.0-51.0); MEAN CORPUSCULAR HEMOGLOBIN 31.1 pg (29.0-33.0); MEAN CORPUSCULAR VOLUME 91.3 fl (82.0-101.0); MEAN PLATELET VOLUME 10.1 fl (7.4-10.4); MONOCYTES % 7.6 % (0.0-11.0); NEUTROPHILS % 82.6 % (39.0-77.0); PLATELET COUNT 163 10^3/UL (140-415); RED BLOOD COUNT 2.19 10^6/ul (4.70-6.10); RED CELL DISTRIBUTION WIDTH 14.7 % (11.5-14.5); WHITE BLOOD COUNT 13.4 10^3/ul (4.8-10.8)
[2016-07-25 04:50] LABS: POTASSIUM 5.9 mmol/L (3.5-5.1)
[2016-07-25 04:52] LABS: CREATININE 9.02 mg/dl (0.61-1.24)
[2016-07-25 04:53] LABS: CALCIUM 8.7 mg/dl (8.4-10.2)
[2016-07-25 05:00] LABS: TROPONIN-I 0.03 ng/ml (0.00-0.12)
[2016-07-25 05:01] LABS: CK-MB 2.89 ng/ml (0.0-2.4)
[2016-07-25 05:06] LABS: HEMOGLOBIN 6.8 g/dl (14.0-18.0)
[2016-07-25] MEDS: SEVELAMER CARBONATE 0.8 GM PKT PO SCH ×3 (07:51→17:35)
[2016-07-25] MEDS: CALCIUM ACETATE 667 MG CAP PO SCH ×3 (07:52→17:35)
[2016-07-25] MEDS: INSULIN ASPART [NOVOLOG] 3 ML PEN SC SCH ×6 (07:56→21:00)
--- NOTE | 2016-07-25 08:08 | CONS ---
DATE OF ADMISSION: 07/24/2016 DATE OF CONSULTATION: 07/24/2016 REASON FOR CONSULTATION: Abnormal electrocardiogram, shortness of breath, assess for congestive hea rt failure. REQUESTING PHYSICIAN: Eva Price MD HISTORY OF PRESENT ILLNESS: Mr. Singh is a 60-year-old male, well known to myself through prior consu ltation. He has congestive heart failure with diastolic dysfunction on most recent echo, prior PTCA and stent placement to LAD and left main in 2014, history of coronary artery bypass graft surgery, end-stage renal disease on hemodialysis, pleural effusions, recurrent, status post thoracentesis; dy slipidemia, negative stress test 05/26/2016 revealing a preserved EF, who had recently been admitted with recurrent shortness of breath and was found to have recurrent pleural effusions for which he underwent thoracentesis on admit of minus 1200 mL. The patient had recurrence of pleural effusion a nd subsequently underwent VATS with pleurodesis. The patient's postoperative course was notable for a prolonged placement of a chest tube and development of TB infection and a long course of treatmen t. The patient with an episode of a wide complex tachycardia with no recurrence after being placed on beta reinaldo. The patient was then discharged to outpatient followup 07/21/2016 and, at outside facility, was noted to have recurrent episodes of nausea and vomiting requiring Zofran q.4 and leaka ge from chest tube site with any exhalation. Given these findings, the patient has re-presented to [facility]. PAST MEDICAL HISTORY: As above in HPI. MEDICATIONS CURRENTLY IN HOSPITAL: 1. Aspirin 81 mg daily. 2. Vitamin D. 3. Pepcid. 4. Vitamin B6. 5. Norvasc 5 mg b.i.d. 6. Lipitor 10 mg at bedtime. 7. Benazepril 40 mg b.i.d. 8. Metoprolol 75 mg p.o. b.i.d. 9. Procardia 60 mg daily. 10. Lantus. 11. ____ mg Thursday, , Thursday. 12. ____ mg Thursday, , Thursday. 13. Insulin sliding scale. 14. Renvela. 15. [place]. 16. Zofran. 17. Dilaudid. 18. Protonix IV. 19. Isoniazid 300 mg daily. 20. Tylenol p.r.n. ALLERGIES: NO KNOWN DRUG ALLERGIES. SOCIAL HISTORY: No tobacco, ETOH, or illicit drug use. FAMILY HISTORY: No history of sudden cardiac or early CAD. REVIEW OF SYSTEMS: As above in HPI. CONSTITUTIONAL: No fevers, chills. PULMONARY: Positive shortness of breath. CARDIOVASCULAR: No current chest pain. GASTROINTESTINAL: Nausea, vomiting. GENITOURINARY: No hematuria. MUSCULOSKELETAL: Degenerative joint disease. PSYCHIATRIC: The patient denies depression. NEUROLOGIC: No documented history of CVA. ENDOCRINE: Diabetes mellitus. PHYSICAL EXAMINATION: VITAL SIGNS: Temperature of 98, blood pressure most recently 93/59, pulse 69, respirations 15, satu rating 100% on 2 liters. GENERAL: The patient is alert, awake with mild pain at chest tube site, and nausea and vomiting. NECK: JVP approximately 8 cm water. CHEST: Decreased breath sounds, right side. HEART: Regular rate and rhythm. Normal S1, increased S2, I/ systolic murmur, nondisplaced PMI. ABDOMEN: Positive bowel sounds, soft. EXTREMITIES: No edema, 1+ pulses bilaterally, posterior tibial. LABORATORY DATA: Most recently from today, white count 8.6, hemoglobin 7.2, platelet count 230. So dium 136, potassium 5.2, creatinine 7.23, BUN of 72, AST 68, ALT 24, total protein 5.7. ABG reveali ng a pH of 7.39, a PaO2 105 with a pCO2 of 37. IMAGING STUDIES: Chest x-ray from the revealing a new fairly prominent ____ in the right lung base suspicious for pneumonia and increased right pleural effusion. The patient underwent a chest u ltrasound which showed consolidated right lung base with only minimal ____ consolidated lung. A pel kamran x-ray revealed left femoral central venous catheter in place, mild to moderate bilateral hip art hrosis. ELECTROCARDIOGRAM: Reveals the patient has atrial paced rhythm at a rate of 70 with normal axis, no rmal intervals, nonspecific ST and T wave abnormalities. IMPRESSION: 1. Abnormal electrocardiogram, assess for acute coronary syndrome with no current chest pain and re cently negative stress test. 2. History of a percutaneous transluminal coronary angioplasty and stent placement to left main and left anterior descending in 2014. 3. History of coronary artery bypass graft surgery. 4. Video assisted thoracoscopic surgery pleurodesis with leakage from the chest tube site. 5. Shortness of breath. 6. End-stage renal disease on hemodialysis. 7. Tuberculosis, on therapy. 8. Hypertension with currently borderline hypotension. 9. Diabetes mellitus. 10. Dyslipidemia. 11. Anemia. RECOMMENDATIONS: 1. At this time, would admit patient to the floor for close monitoring in negative ____. 2. Continue the patient's TB treatment medications. 3. We will continue patient's current antihypertensives but follow extremely labile blood pressure. I am going to decrease Norvasc since the patient is on Norvasc and Procardia at this time. 4. Follow the patient's volume status closely. 5. Surgical evaluation of the patient's leakage from chest tube site and possible need for further imaging. 6. We will continue to check serial EKGs to assess for any significant ongoing changes. I am going to check a repeat troponin in the morning to assess for any significant possible ongoing cardiac da mage. Thank you for allowing me to take part in the care of this patient. I will continue to follow along very closely with you. Further recommendations to be made as the patient progresses through his in patient hospital clinical course. Dictated By: SHERITA GARCIA/MANJIT Conf#: [id number] DID#: [id number] CC: EVA PRICE MD;*EndCC*
--- NOTE | 2016-07-25 08:10 | CONS ---
DATE OF ADMISSION: 07/24/2016 DATE OF CONSULTATION: TYPE OF CONSULTATION: Nephrology. HISTORY OF PRESENT ILLNESS: Lamberto Singh is a 60-year-old male who was recently discharged from this hospital. The patient has a history of possible pleural TB , status post pleural effusion, recurrent; status post multiple thoracenteses; status post VATS procedure. Now, the patient has been on anti-TB treatment, now presents with recurrent shortness of breath, pleural effusion, has been receiving dialysis 3 times a week. Came to the emergency room and noted to have fluid overload and is for further management. PAST MEDICAL HISTORY: Recurrent pleural effusion, VATS procedure, granulomatous inflammation with focal necrosis and extensive _ negative. The patient was on airborne isolation. 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 The patient has status post thoracentesis, ESRD, diabetes, hypertension, CAD, history of CABG, history of pacemaker placement, dyslipidemia. ALLERGY HISTORY: NEGATIVE. FAMILY HISTORY: Negative. SOCIAL HISTORY: Negative at this point. MEDICATION HISTORY: The patient is on: 1. Amlodipine. 2. Aspirin. 3. Lipitor. 4. Benazepril. 5. Calcium acetate. 6. Vitamin D. 7. Plavix. 8. Ethambutol 400. 9. Pepcid. 10. Iron sulfate. 11. Hydrocodone. 12. Insulin. 13. Isoniazid 300 mg. 14. Metoprolol. 15. Nifedipine. 16. ____. 17. ____. 18. Rifampin. 19. Renvela. REVIEW OF SYSTEMS: HEENT: Unremarkable. RESPIRATORY: Short of breath, cough. CARDIOVASCULAR: palpitations. ABDOMEN: Unremarkable. LOWER EXTREMITIES: Unremarkable . PHYSICAL EXAMINATION: GENERAL: The patient is awake, alert, mildly short of breath. VITAL SIGNS: Pulse of 70, blood pressure 103/61. HEENT: Head is atraumatic, normocephalic. Pupils are equal, reactive. No pale conjunctivae. NECK: Supple. LUNGS: Decreased air entry, both bases and rhonchi and rales noted. CARDIOVASCULAR: S1, S2 are normal. ABDOMEN: Soft, nontender. Bowel sounds present. No palpable mass. EXTREMITIES: There is no cyanosis, clubbing, edema. CENTRAL NERVOUS SYSTEM: The patient is awake, alert and oriented with no focal deficit. LABORATORY DATA: Hematocrit 21.6, _. IMAGING: The patient has chest x-ray, shows new fairly prominent alveolar infiltrate of the right lung base suspicious for pneumonia with pleural effusion. Ultrasound: Consolidated right lung base with only minimal_. The patient also _ left femoral central venous , mild to moderate IMPRESSION: 1. Recurrent pleural effusions. 2. Lung infiltrate. 3. chronic lung disease. 4. Hypertension. 5. Diabetes mellitus. 6. End-stage renal disease. 7. anemia. 8. cad. 9. Leukocytosis. 10. ashd 11. s/p vats. 12. The patient on anti-tuberculosis treatment. 13. 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 PLAN: At this point is to continue hemodialysis 3 times a weeks if patient agrees. Otherwise, the patient _. Thank you, Dr. Dakotah Price, for kindly asking me to see this patient in nephrology consultation. Dictated By: PAOLA HEAD/MANJIT Conf#: [id number] DID#: [id number] MTDD
[2016-07-25] MEDS: PANTOPRAZOLE 40 MG INJ IV SCH (08:25)
[2016-07-25] MEDS: CHOLECALCIFEROL 400 UNITS TAB PO SCH (08:25)
[2016-07-25] MEDS: FERROUS SULFATE (EC) 325 MG TAB PO SCH ×2 (08:26→20:45)
[2016-07-25] MEDS: METOPROLOL 25 MG TAB PO SCH ×2 (08:26→20:45)
[2016-07-25] MEDS: FAMOTIDINE 20 MG TAB PO SCH (08:26)
[2016-07-25] MEDS: ISONIAZID 300 MG TAB PO SCH (08:27)
[2016-07-25] MEDS: ASPIRIN (EC) 81 MG TAB PO SCH (08:27)
[2016-07-25] MEDS: NIFEdipine (XL) 60 MG TAB PO SCH ×2 (08:27→21:02)
[2016-07-25] MEDS: PYRIDOXINE 50 MG TAB PO SCH (08:27)
[2016-07-25] MEDS: RIFAMPIN 300 MG CAP PO SCH (08:27)
[2016-07-25] MEDS: BENAZEPRIL 40 MG TAB PO SCH ×2 (08:27→20:46)
[2016-07-25] MEDS: HYDROmorphONE 1 MG/ML SYG IV PRN ×2 (09:05→15:16)
--- NOTE | 2016-07-25 10:20 | CONS ---
Date/Time of Note Date/Time of Note DATE: 07/25/16 TIME: 10:20 Assessment/Plan Assessment/Plan Additional Assessment/Plan patient seen and examined. full note to follow. thanks Consultation Date/Type/Reason Admit Date/Time Jul 24, 2016 at 12:53 Initial Consult Date 07/24/16 Type of Consultation: id Exam/Review of Systems Vital Signs Vitals Vital Signs Date Time Temp Pulse Resp B/P Pulse Ox O2 Delivery O2 Flow Rate FiO2 07/25/16 09:00 79 22 128/65 100 Room Air 07/25/16 08:00 98.1 07/25/16 08:00 2.0 07/25/16 01:55 27 Intake and Output 07/24/16 07/24/16 07/25/16 15:00 23:00 07:00 Intake Total 350 ml Balance 350 ml Results Result Diagram: 07/25/16 0400 07/25/16 0400 Results 24 hrs Laboratory Tests Test 07/24/16 16:33 07/24/16 19:38 07/24/16 22:18 07/25/16 01:00 Hemoglobin 8.4 L Hematocrit 24.7 L Bedside Glucose 172 176 Creatine Kinase 81 Creatine Kinase Index 3.8 Creatinine Kinase MB (Mass) 3.09 H Troponin I 0.019 Test 07/25/16 04:00 07/25/16 07:50 White Blood Count 13.4 #H Red Blood Count 2.19 L Hemoglobin 6.8 *L Hematocrit 20.0 L Mean Corpuscular Volume 91.3 Mean Corpuscular Hemoglobin 31.1 Mean Corpuscular Hemoglobin Concent 34.0 Red Cell Distribution Width 14.7 H Platelet Count 163 # Mean Platelet Volume 10.1 Neutrophils % 82.6 H Lymphocytes % 8.8 L Monocytes % 7.6 Eosinophils % 0.1 Basophils % 0.4 Nucleated Red Blood Cells % 0.0 Neutrophils # 11.0 H Lymphocytes # 1.2 Monocytes # 1.0 H Eosinophils # 0.0 Basophils # 0.1 Nucleated Red Blood Cells # 0.0 Sodium Level 136 Potassium Level 5.9 H Chloride Level 99 Carbon Dioxide Level 24 Anion Gap 19 H Blood Urea Nitrogen 87 H Creatinine 9.02 H Glucose Level 164 Calcium Level 8.7 Creatine Kinase 74 Creatine Kinase Index 3.9 Creatinine Kinase MB (Mass) 2.89 H Troponin I 0.030 Bedside Glucose 174 Medications Medications Current Medications Pantoprazole (Protonix Iv) 40 mg DAILY IV Last administered on 07/25/16 08:25 ; Admin Dose 40 MG; Start 07/24/16 at 15:30 Aspirin (Halfprin) 81 mg DAILY PO Last administered on 07/25/16 08:27; Admin Dose 81 MG; Start 07/25/16 at 09:00 Atorvastatin Calcium (Lipitor) 10 mg QHS PO ; Start 07/24/16 at 21:00 Benazepril HCl (Lotensin) 40 mg BID PO Last administered on 07/25/16 08:27; Admin Dose 40 MG; Start 07/24/16 at 21:00 Cholecalciferol (Vitamin D) 400 units DAILY PO Last administered on 07/25/16 08:25; Admin Dose 400 UNITS; Start 07/25/16 at 09:00 Famotidine (Pepcid) 20 mg DAILY PO Last administered on 07/25/16 08:26; Admin Dose 20 MG; Start 07/25/16 at 09:00 Ferrous Sulfate (Ferrous Sulfate (Ec)) 325 mg BID PO Last administered on 08:26; Admin Dose 325 MG; Start 07/24/16 at 21:00 Acetaminophen/ Hydrocodone Bitart ([place] (5/325)) 1 tab Q4H PRN PO PAIN; Start 07/24/16 at 17:00 Insulin Glargine (Lantus) 6 unit DAILY@20 SC ; Start 07/24/16 at 20:00 Isoniazid (Isoniazid) 300 mg DAILY PO Last administered on 07/25/16 08:27; Admin Dose 300 MG; Start 07/24/16 at 15:30 Metoprolol Tartrate (Lopressor) 75 mg BID PO Last administered on 07/25/16 08: 26; Admin Dose 75 MG; Start 07/24/16 at 21:00 Nifedipine (Procardia Xl) 60 mg BID PO Last administered on 07/25/16 08:27; Admin Dose 60 MG; Start 07/24/16 at 21:00 Pyridoxine HCl (Vitamin B6) 50 mg DAILY PO Last administered on 07/25/16 08:27 ; Admin Dose 50 MG; Start 07/25/16 at 09:00 Rifampin (Rifampin) 600 mg DAILY PO Last administered on 07/25/16 08:27; Admin Dose 600 MG; Start 07/25/16 at 09:00 Pyrazinamide (Pyrazinamide) 1,500 mg TuThSa@20 PO ; Start 07/24/16 at 20:00 Ethambutol HCl (Myambutol) 1,200 mg TuThSa@20 PO ; Start 07/24/16 at 20:00 Miscellaneous Information 1 ea NOTE XX ; Start 07/24/16 at 16:00 Glucose (Glutose) 15 gm Q15M PRN PO DECREASED GLUCOSE; Start 07/24/16 at 16:00 Glucose (Glutose) 22.5 gm Q15M PRN PO DECREASED GLUCOSE; Start 07/24/16 at 16: 00 Dextrose (D50w Syringe) 25 ml Q15M PRN IV DECREASED GLUCOSE; Start 07/24/16 at 16:00 Dextrose (D50w Syringe) 50 ml Q15M PRN IV DECREASED GLUCOSE; Start 07/24/16 at 16:00 Glucagon (Glucagen) 1 mg Q15M PRN IM DECREASED GLUCOSE; Start 07/24/16 at 16:00 Glucose (Glutose) 15 gm Q15M PRN BUCCAL DECREASED GLUCOSE; Start 07/24/16 at 16 :00 Ondansetron HCl (Zofran Inj) 4 mg Q4 PRN IV nausea Last administered on 04:10; Admin Dose 4 MG; Start 07/24/16 at 17:00 Hydromorphone HCl (Dilaudid) 1 mg Q4 PRN IV pain Last administered on 09:05; Admin Dose 1 MG; Start 07/24/16 at 17:00 Metoclopramide HCl (Reglan) 5 mg Q4H PRN IV NAUSEA; Start 07/24/16 at 22:30 BRENDA ISRAEL MD Jul 25, 2016 10:20
--- NOTE | 2016-07-25 10:55 | CONS ---
Date/Time of Note Date/Time of Note DATE: 07/25/16 TIME: 10:50 Assessment/Plan Assessment/Plan Chief Complaint/Hosp Course IMPRESSION: 1. Abnormal electrocardiogram, assess for acute coronary syndrome with no current chest pain and recently negative stress test.-negative troponin x 3 2. History of a percutaneous transluminal coronary angioplasty and stent placement to left main and left anterior descending in 2014. 3. History of coronary artery bypass graft surgery. 4. Video assisted thoracoscopic surgery pleurodesis with leakage from the chest tube site. 5. Shortness of breath. 6. End-stage renal disease on hemodialysis. 7. Tuberculosis, on therapy. 8. Hypertension with currently borderline hypotension. 9. Diabetes mellitus. 10. Dyslipidemia. 11. Anemia-worsening Recc: -Tele -Continue benazepril/BB/CCB and [id number] BP closely -Continue asa -Plavix held in the setting of anemia/resume when possible-safe -Pnding surgical eval of CT site -Consider transfusion of PRBC's -Continue negative pressure room and TB treatment Problems: Consultation Date/Type/Reason Admit Date/Time Jul 24, 2016 at 12:53 Initial Consult Date 07/24/16 Type of Consultation: Cardiology Reason for Consultation abnl ecg Referring Provider: EVA COX MD Exam/Review of Systems Vital Signs Vitals Vital Signs Date Time Temp Pulse Resp B/P Pulse Ox O2 Delivery O2 Flow Rate FiO2 07/25/16 09:00 79 22 128/65 100 Room Air 07/25/16 08:00 98.1 07/25/16 08:00 2.0 07/25/16 01:55 27 Intake and Output 07/24/16 07/24/16 07/25/16 15:00 23:00 07:00 Intake Total 350 ml Balance 350 ml Exam Review of Systems: CONSTITUTIONAL: No fevers, chills. PULMONARY: mild sob CARDIOVASCULAR: No chest pain/palpitations GASTROINTESTINAL: No nausea/vomiting. GENITOURINARY: No hematuria/dysuria. MUSCULOSKELETAL: No myagias/arthalgias. PSYCHIATRIC: The patient denies depression. NEUROLOGIC: No weakness Constitutional: alert Psych: no complaints Head: normocephalic ENMT: mucosa pink and moist Neck: jvd, supple Respiratory: diminished breath sounds Cardiovascular: regular rate and rhythm Gastrointestinal: non-tender, soft Musculoskeletal: muscle tone (normal) Extremities: edema (none) Neurological: other (No focal deficits) Results Result Diagram: 07/25/16 0400 07/25/16 0400 Results 24 hrs Laboratory Tests Test 07/24/16 16:33 07/24/16 19:38 07/24/16 22:18 07/25/16 01:00 Hemoglobin 8.4 L Hematocrit 24.7 L Bedside Glucose 172 176 Creatine Kinase 81 Creatine Kinase Index 3.8 Creatinine Kinase MB (Mass) 3.09 H Troponin I 0.019 Test 07/25/16 04:00 07/25/16 07:50 White Blood Count 13.4 #H Red Blood Count 2.19 L Hemoglobin 6.8 *L Hematocrit 20.0 L Mean Corpuscular Volume 91.3 Mean Corpuscular Hemoglobin 31.1 Mean Corpuscular Hemoglobin Concent 34.0 Red Cell Distribution Width 14.7 H Platelet Count 163 # Mean Platelet Volume 10.1 Neutrophils % 82.6 H Lymphocytes % 8.8 L Monocytes % 7.6 Eosinophils % 0.1 Basophils % 0.4 Nucleated Red Blood Cells % 0.0 Neutrophils # 11.0 H Lymphocytes # 1.2 Monocytes # 1.0 H Eosinophils # 0.0 Basophils # 0.1 Nucleated Red Blood Cells # 0.0 Sodium Level 136 Potassium Level 5.9 H Chloride Level 99 Carbon Dioxide Level 24 Anion Gap 19 H Blood Urea Nitrogen 87 H Creatinine 9.02 H Glucose Level 164 Calcium Level 8.7 Creatine Kinase 74 Creatine Kinase Index 3.9 Creatinine Kinase MB (Mass) 2.89 H Troponin I 0.030 Bedside Glucose 174 Medications Medications Current Medications Pantoprazole (Protonix Iv) 40 mg DAILY IV Last administered on 07/25/16 08:25 ; Admin Dose 40 MG; Start 07/24/16 at 15:30 Aspirin (Halfprin) 81 mg DAILY PO Last administered on 07/25/16 08:27; Admin Dose 81 MG; Start 07/25/16 at 09:00 Atorvastatin Calcium (Lipitor) 10 mg QHS PO ; Start 07/24/16 at 21:00 Benazepril HCl (Lotensin) 40 mg BID PO Last administered on 07/25/16 08:27; Admin Dose 40 MG; Start 07/24/16 at 21:00 Cholecalciferol (Vitamin D) 400 units DAILY PO Last administered on 07/25/16 08:25; Admin Dose 400 UNITS; Start 07/25/16 at 09:00 Famotidine (Pepcid) 20 mg DAILY PO Last administered on 07/25/16 08:26; Admin Dose 20 MG; Start 07/25/16 at 09:00 Ferrous Sulfate (Ferrous Sulfate (Ec)) 325 mg BID PO Last administered on 08:26; Admin Dose 325 MG; Start 07/24/16 at 21:00 Acetaminophen/ Hydrocodone Bitart ([place] (5/325)) 1 tab Q4H PRN PO PAIN; Start 07/24/16 at 17:00 Insulin Glargine (Lantus) 6 unit DAILY@20 SC ; Start 07/24/16 at 20:00 Isoniazid (Isoniazid) 300 mg DAILY PO Last administered on 07/25/16 08:27; Admin Dose 300 MG; Start 07/24/16 at 15:30 Metoprolol Tartrate (Lopressor) 75 mg BID PO Last administered on 07/25/16 08: 26; Admin Dose 75 MG; Start 07/24/16 at 21:00 Nifedipine (Procardia Xl) 60 mg BID PO Last administered on 07/25/16 08:27; Admin Dose 60 MG; Start 07/24/16 at 21:00 Pyridoxine HCl (Vitamin B6) 50 mg DAILY PO Last administered on 07/25/16 08:27 ; Admin Dose 50 MG; Start 07/25/16 at 09:00 Rifampin (Rifampin) 600 mg DAILY PO Last administered on 07/25/16 08:27; Admin Dose 600 MG; Start 07/25/16 at 09:00 Pyrazinamide (Pyrazinamide) 1,500 mg TuThSa@20 PO ; Start 07/24/16 at 20:00 Ethambutol HCl (Myambutol) 1,200 mg TuThSa@20 PO ; Start 07/24/16 at 20:00 Miscellaneous Information 1 ea NOTE XX ; Start 07/24/16 at 16:00 Glucose (Glutose) 15 gm Q15M PRN PO DECREASED GLUCOSE; Start 07/24/16 at 16:00 Glucose (Glutose) 22.5 gm Q15M PRN PO DECREASED GLUCOSE; Start 07/24/16 at 16: 00 Dextrose (D50w Syringe) 25 ml Q15M PRN IV DECREASED GLUCOSE; Start 07/24/16 at 16:00 Dextrose (D50w Syringe) 50 ml Q15M PRN IV DECREASED GLUCOSE; Start 07/24/16 at 16:00 Glucagon (Glucagen) 1 mg Q15M PRN IM DECREASED GLUCOSE; Start 07/24/16 at 16:00 Glucose (Glutose) 15 gm Q15M PRN BUCCAL DECREASED GLUCOSE; Start 07/24/16 at 16 :00 Ondansetron HCl (Zofran Inj) 4 mg Q4 PRN IV nausea Last administered on 04:10; Admin Dose 4 MG; Start 07/24/16 at 17:00 Hydromorphone HCl (Dilaudid) 1 mg Q4 PRN IV pain Last administered on 09:05; Admin Dose 1 MG; Start 07/24/16 at 17:00 Metoclopramide HCl (Reglan) 5 mg Q4H PRN IV NAUSEA; Start 07/24/16 at 22:30 SHERITA SCOTT Jul 25, 2016 10:55
[2016-07-25] MEDS: METOCLOPRAMIDE 10 MG INJ IV PRN (11:53)
[2016-07-25] MEDS: ALBUMIN HUMAN 25% 100 ML IV SCH ×2 (12:35→13:25)
--- NOTE | 2016-07-25 13:10 | PN ---
CECILIA DAMICO 07/25/16 1306: Date/Time of Note Date/Time of Note DATE: 07/25/16 TIME: 12:55 Assessment/Plan VTE Prophylaxis VTE Prophylaxis Intervention: SCD's Lines/Catheters [facility] Central Line Central line still needed: Yes Urinary Cath still in place: No Assessment/Plan Chief Complaint/Hosp Course Assessment and plan -Hemoptysis, Dr. Dale is following in pulmonology consultation. Dr. Tucker is following an infection disease consultation. -Right former chest tube site bleeding, resolved. Dr. Martinez is following in thoracic surgery consultation. -Anemia of acute blood loss, patient had bleeding from the right femoral catheter as well as chest tube site on admission, status post blood transfusion , continue to monitor hemoglobin and hematocrit. Dr. FREDERICK is asked to see patient in hematology consultation. -Recurrent right pleural effusion with consolidation. - Quantiferon Gold positive, prior Hx of TB per department of health, s/p treatment in 1998, continue RIPA. - End-stage renal disease, continue hemodialysis. Dr. Saunders is following in nephrology consultation. - Diabetes mellitus type 2, continue Lantus, pre-meal NovoLog and NovoLog per mild algorithm sliding scale. - Hypertension. Dr. De Santiago is following and cardiology consultation. Continue benazepril metoprolol hydralazine Procardia - Coronary artery disease, status post coronary artery bypass graft, s/p percutaneous transluminal coronary angioplasty and stent placement to left main and left anterior descending in 2014. - Permanent pacemaker. No acute issues. - Dyslipidemia. Continue Lipitor. Further recommendations based on clinical course. Plan of care discussed with Dr. Cox. Problems: Subjective 24 Hr Interval Summary Free Text/Dictation Patient's complains of nausea and vomiting, undergoing hemodialysis and blood transfusion with hemodialysis, continue Zofran. Exam/Review of Systems Vital Signs Vitals Vital Signs Date Time Temp Pulse Resp B/P Pulse Ox O2 Delivery O2 Flow Rate FiO2 07/25/16 12:30 75 07/25/16 12:00 98.3 20 149/63 99 Room Air 07/25/16 08:00 2.0 07/25/16 01:55 27 Intake and Output 07/24/16 07/24/16 07/25/16 15:00 23:00 07:00 Intake Total 350 ml Balance 350 ml Exam Constitutional: alert, oriented Psych: no complaints Head: atraumatic, normocephalic ENMT: nl external ears & nose Neck: non-tender, supple Respiratory: clear to auscultation, normal air movement Cardiovascular: other (Left chest permanent pacemaker), regular rate and rhythm Gastrointestinal: bowel sounds, soft Extremities: normal pulses Neurological: INSOLE REINFORCER II-XII intact Results Result Diagram: 07/25/16 0400 07/25/16 0400 Results 24 hrs Laboratory Tests Test 07/24/16 16:33 07/24/16 19:38 07/24/16 22:18 07/25/16 01:00 Hemoglobin 8.4 L Hematocrit 24.7 L Bedside Glucose 172 176 Creatine Kinase 81 Creatine Kinase Index 3.8 Creatinine Kinase MB (Mass) 3.09 H Troponin I 0.019 Test 07/25/16 04:00 07/25/16 07:50 07/25/16 11:55 White Blood Count 13.4 #H Red Blood Count 2.19 L Hemoglobin 6.8 *L Hematocrit 20.0 L Mean Corpuscular Volume 91.3 Mean Corpuscular Hemoglobin 31.1 Mean Corpuscular Hemoglobin Concent 34.0 Red Cell Distribution Width 14.7 H Platelet Count 163 # Mean Platelet Volume 10.1 Neutrophils % 82.6 H Lymphocytes % 8.8 L Monocytes % 7.6 Eosinophils % 0.1 Basophils % 0.4 Nucleated Red Blood Cells % 0.0 Neutrophils # 11.0 H Lymphocytes # 1.2 Monocytes # 1.0 H Eosinophils # 0.0 Basophils # 0.1 Nucleated Red Blood Cells # 0.0 Sodium Level 136 Potassium Level 5.9 H Chloride Level 99 Carbon Dioxide Level 24 Anion Gap 19 H Blood Urea Nitrogen 87 H Creatinine 9.02 H Glucose Level 164 Calcium Level 8.7 Creatine Kinase 74 Creatine Kinase Index 3.9 Creatinine Kinase MB (Mass) 2.89 H Troponin I 0.030 Bedside Glucose 174 119 Medications Medications Current Medications Pantoprazole (Protonix Iv) 40 mg DAILY IV Last administered on 07/25/16 08:25 ; Admin Dose 40 MG; Start 07/24/16 at 15:30 Aspirin (Halfprin) 81 mg DAILY PO Last administered on 07/25/16 08:27; Admin Dose 81 MG; Start 07/25/16 at 09:00 Atorvastatin Calcium (Lipitor) 10 mg QHS PO ; Start 07/24/16 at 21:00 Benazepril HCl (Lotensin) 40 mg BID PO Last administered on 07/25/16 08:27; Admin Dose 40 MG; Start 07/24/16 at 21:00 Cholecalciferol (Vitamin D) 400 units DAILY PO Last administered on 07/25/16 08:25; Admin Dose 400 UNITS; Start 07/25/16 at 09:00 Famotidine (Pepcid) 20 mg DAILY PO Last administered on 07/25/16 08:26; Admin Dose 20 MG; Start 07/25/16 at 09:00 Ferrous Sulfate (Ferrous Sulfate (Ec)) 325 mg BID PO Last administered on 08:26; Admin Dose 325 MG; Start 07/24/16 at 21:00 Acetaminophen/ Hydrocodone Bitart ([place] (5/325)) 1 tab Q4H PRN PO PAIN; Start 07/24/16 at 17:00 Insulin Glargine (Lantus) 6 unit DAILY@20 SC ; Start 07/24/16 at 20:00 Isoniazid (Isoniazid) 300 mg DAILY PO Last administered on 07/25/16 08:27; Admin Dose 300 MG; Start 07/24/16 at 15:30 Metoprolol Tartrate (Lopressor) 75 mg BID PO Last administered on 07/25/16 08: 26; Admin Dose 75 MG; Start 07/24/16 at 21:00 Nifedipine (Procardia Xl) 60 mg BID PO Last administered on 07/25/16 08:27; Admin Dose 60 MG; Start 07/24/16 at 21:00 Pyridoxine HCl (Vitamin B6) 50 mg DAILY PO Last administered on 07/25/16 08:27 ; Admin Dose 50 MG; Start 07/25/16 at 09:00 Rifampin (Rifampin) 600 mg DAILY PO Last administered on 07/25/16 08:27; Admin Dose 600 MG; Start 07/25/16 at 09:00 Pyrazinamide (Pyrazinamide) 1,500 mg TuThSa@20 PO ; Start 07/24/16 at 20:00 Ethambutol HCl (Myambutol) 1,200 mg TuThSa@20 PO ; Start 07/24/16 at 20:00 Miscellaneous Information 1 ea NOTE XX ; Start 07/24/16 at 16:00 Glucose (Glutose) 15 gm Q15M PRN PO DECREASED GLUCOSE; Start 07/24/16 at 16:00 Glucose (Glutose) 22.5 gm Q15M PRN PO DECREASED GLUCOSE; Start 07/24/16 at 16: 00 Dextrose (D50w Syringe) 25 ml Q15M PRN IV DECREASED GLUCOSE; Start 07/24/16 at 16:00 Dextrose (D50w Syringe) 50 ml Q15M PRN IV DECREASED GLUCOSE; Start 07/24/16 at 16:00 Glucagon (Glucagen) 1 mg Q15M PRN IM DECREASED GLUCOSE; Start 07/24/16 at 16:00 Glucose (Glutose) 15 gm Q15M PRN BUCCAL DECREASED GLUCOSE; Start 07/24/16 at 16 :00 Ondansetron HCl (Zofran Inj) 4 mg Q4 PRN IV nausea Last administered on 04:10; Admin Dose 4 MG; Start 07/24/16 at 17:00 Hydromorphone HCl (Dilaudid) 1 mg Q4 PRN IV pain Last administered on 09:05; Admin Dose 1 MG; Start 07/24/16 at 17:00 Metoclopramide HCl 5 mg 5 mg Q4H PRN IV NAUSEA Last administered on 07/25/16 11:53; Admin Dose 5 MG; Start 07/24/16 at 22:30 Albumin Human (Albumin Human 25%) 100 ml @ 100 mls/hr Q1H IV Last administered on 07/25/16 12:35; Admin Dose 100 MLS/HR; Start 07/25/16 at 12:30 ; Stop 07/25/16 at 14:29 EVA COX MD 07/25/16 1739: Assessment/Plan Assessment/Plan Chief Complaint/Hosp Course patient remains critically ill . Spoke with his . Case was also discussed with multiple consultants. Will continue to monitor in ICU. Total critical time spent 35 minutes Problems: Exam/Review of Systems Results Result Diagram: 07/25/16 0400 07/25/16 0400 CECILIA DAMICO Jul 25, 2016 13:06 EVA COX MD Jul 25, 2016 17:39
--- NOTE | 2016-07-25 13:24 | CONS ---
Date/Time of Note Date/Time of Note DATE: 07/25/16 TIME: 13:21 Assessment/Plan Assessment/Plan Chief Complaint/Hosp Course The patient is a 60 year old male with ESRD, DM, HTN, CAD, with hemoptysis, right former chest tube site bleeding, resolved, with anemia of acute blood loss with bleeding from the right femoral catheter as well as chest tube site on admission. - Agree with blood transfusion with dialysis today for Hgb 6.8. Continue to monitor H/H and transfuse if hemoglobin < 8. 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 Now with hemoptysis, right former chest tube site bleeding, resolved, with anemia of acute blood loss with bleeding from the right femoral catheter as well as chest tube site on admission. Patient received 3 units pRBCs with dialysis today. He states that he had bleeding from his surgical site earlier this morning but that it has resolved. Eyes: no complaints ENT: no complaints Respiratory: other (right chest tube site bleeding), pleuritic pain, shortness of breath Gastrointestinal: no complaints Genitourinary: no complaints Skin: other Neurologic: no complaints Psychological: no complaints Immunologic: no complaints Past Medical History - Recurrent right pleural effusion with consolidation. - Quantiferon Gold positive, prior Hx of TB per department of health, s/p treatment in 1998. - End-stage renal disease, on hemodialysis. Dr. Saunders is following in nephrology consultation. - Diabetes mellitus type 2 - Hypertension - Coronary artery disease, status post coronary artery bypass graft, s/p percutaneous transluminal coronary angioplasty and stent placement to left main and left anterior descending in 2014. - Permanent pacemaker - Dyslipidemia Past Surgical History Past Surgical Hx: no surgical history, angioplasty, other Social History Alcohol Use: none Smoking Status: Former smoker Drug Use: other Exam/Review of Systems Vital Signs Vitals Vital Signs Date Time Temp Pulse Resp B/P Pulse Ox O2 Delivery O2 Flow Rate FiO2 07/25/16 13:00 73 07/25/16 12:00 98.3 20 149/63 99 Room Air 07/25/16 08:00 2.0 07/25/16 01:55 27 Intake and Output 07/24/16 07/24/16 07/25/16 15:00 23:00 07:00 Intake Total 350 ml Balance 350 ml Exam Constitutional: alert, oriented Psych: no complaints Head: normocephalic Respiratory: clear to auscultation, other (s/p VATS) Cardiovascular: regular rate and rhythm Gastrointestinal: non-tender, soft Musculoskeletal: nl extremities to inspection Neurological: [employer]END[employer] II-XII intact Results Result Diagram: 07/25/16 0400 07/25/16 0400 Results 24 hrs Laboratory Tests Test 07/24/16 16:33 07/24/16 19:38 07/24/16 22:18 07/25/16 01:00 Hemoglobin 8.4 L Hematocrit 24.7 L Bedside Glucose 172 176 Creatine Kinase 81 Creatine Kinase Index 3.8 Creatinine Kinase MB (Mass) 3.09 H Troponin I 0.019 Test 07/25/16 04:00 07/25/16 07:50 07/25/16 11:55 White Blood Count 13.4 #H Red Blood Count 2.19 L Hemoglobin 6.8 *L Hematocrit 20.0 L Mean Corpuscular Volume 91.3 Mean Corpuscular Hemoglobin 31.1 Mean Corpuscular Hemoglobin Concent 34.0 Red Cell Distribution Width 14.7 H Platelet Count 163 # Mean Platelet Volume 10.1 Neutrophils % 82.6 H Lymphocytes % 8.8 L Monocytes % 7.6 Eosinophils % 0.1 Basophils % 0.4 Nucleated Red Blood Cells % 0.0 Neutrophils # 11.0 H Lymphocytes # 1.2 Monocytes # 1.0 H Eosinophils # 0.0 Basophils # 0.1 Nucleated Red Blood Cells # 0.0 Sodium Level 136 Potassium Level 5.9 H Chloride Level 99 Carbon Dioxide Level 24 Anion Gap 19 H Blood Urea Nitrogen 87 H Creatinine 9.02 H Glucose Level 164 Calcium Level 8.7 Creatine Kinase 74 Creatine Kinase Index 3.9 Creatinine Kinase MB (Mass) 2.89 H Troponin I 0.030 Bedside Glucose 174 119 Medications Medications Current Medications Pantoprazole (Protonix Iv) 40 mg DAILY IV Last administered on 07/25/16 08:25 ; Admin Dose 40 MG; Start 07/24/16 at 15:30 Aspirin (Halfprin) 81 mg DAILY PO Last administered on 07/25/16 08:27; Admin Dose 81 MG; Start 07/25/16 at 09:00 Atorvastatin Calcium (Lipitor) 10 mg QHS PO ; Start 07/24/16 at 21:00 Benazepril HCl (Lotensin) 40 mg BID PO Last administered on 07/25/16 08:27; Admin Dose 40 MG; Start 07/24/16 at 21:00 Cholecalciferol (Vitamin D) 400 units DAILY PO Last administered on 07/25/16 08:25; Admin Dose 400 UNITS; Start 07/25/16 at 09:00 Famotidine (Pepcid) 20 mg DAILY PO Last administered on 07/25/16 08:26; Admin Dose 20 MG; Start 07/25/16 at 09:00 Ferrous Sulfate (Ferrous Sulfate (Ec)) 325 mg BID PO Last administered on 08:26; Admin Dose 325 MG; Start 07/24/16 at 21:00 Acetaminophen/ Hydrocodone Bitart ([place] (5/325)) 1 tab Q4H PRN PO PAIN; Start 07/24/16 at 17:00 Insulin Glargine (Lantus) 6 unit DAILY@20 SC ; Start 07/24/16 at 20:00 Isoniazid (Isoniazid) 300 mg DAILY PO Last administered on 07/25/16 08:27; Admin Dose 300 MG; Start 07/24/16 at 15:30 Metoprolol Tartrate (Lopressor) 75 mg BID PO Last administered on 07/25/16 08: 26; Admin Dose 75 MG; Start 07/24/16 at 21:00 Nifedipine (Procardia Xl) 60 mg BID PO Last administered on 07/25/16 08:27; Admin Dose 60 MG; Start 07/24/16 at 21:00 Pyridoxine HCl (Vitamin B6) 50 mg DAILY PO Last administered on 07/25/16 08:27 ; Admin Dose 50 MG; Start 07/25/16 at 09:00 Rifampin (Rifampin) 600 mg DAILY PO Last administered on 07/25/16 08:27; Admin Dose 600 MG; Start 07/25/16 at 09:00 Pyrazinamide (Pyrazinamide) 1,500 mg TuThSa@20 PO ; Start 07/24/16 at 20:00 Ethambutol HCl (Myambutol) 1,200 mg TuThSa@20 PO ; Start 07/24/16 at 20:00 Miscellaneous Information 1 ea NOTE XX ; Start 07/24/16 at 16:00 Glucose (Glutose) 15 gm Q15M PRN PO DECREASED GLUCOSE; Start 07/24/16 at 16:00 Glucose (Glutose) 22.5 gm Q15M PRN PO DECREASED GLUCOSE; Start 07/24/16 at 16: 00 Dextrose (D50w Syringe) 25 ml Q15M PRN IV DECREASED GLUCOSE; Start 07/24/16 at 16:00 Dextrose (D50w Syringe) 50 ml Q15M PRN IV DECREASED GLUCOSE; Start 07/24/16 at 16:00 Glucagon (Glucagen) 1 mg Q15M PRN IM DECREASED GLUCOSE; Start 07/24/16 at 16:00 Glucose (Glutose) 15 gm Q15M PRN BUCCAL DECREASED GLUCOSE; Start 07/24/16 at 16 :00 Ondansetron HCl (Zofran Inj) 4 mg Q4 PRN IV nausea Last administered on 04:10; Admin Dose 4 MG; Start 07/24/16 at 17:00 Hydromorphone HCl (Dilaudid) 1 mg Q4 PRN IV pain Last administered on 09:05; Admin Dose 1 MG; Start 07/24/16 at 17:00 Metoclopramide HCl 5 mg 5 mg Q4H PRN IV NAUSEA Last administered on 07/25/16 11:53; Admin Dose 5 MG; Start 07/24/16 at 22:30 Albumin Human (Albumin Human 25%) 100 ml @ 100 mls/hr Q1H IV Last administered on 07/25/16 12:35; Admin Dose 100 MLS/HR; Start 07/25/16 at 12:30 ; Stop 07/25/16 at 14:29 ISABELA FREDERICK MD Jul 25, 2016 13:24
--- NOTE | 2016-07-25 13:40 | CONS ---
DATE OF ADMISSION: 07/24/2016 DATE OF CONSULTATION: GASTROENTEROLOGY CONSULTATION Dear Dr. Price: Thank you for asking me to see Mr. Singh in GI consultation. HISTORY OF PRESENT ILLNESS: As you know, the patient is a 60-year-old [place] gentleman. He is in the intensive care unit because of hypertension and pleural effusion. The patient has a history of vomiting for the past several days. He vomits every time he eats any food. No history of vomiting blood, no history of radiation, no peptic ulcer disease in the past. No bleeding, no bowel movemen t in the past few days, but generally he has got brown bowel movements. No prior history of gastroi ntestinal problems. He was admitted to the hospital on July 24, as mentioned above, because of the pleural effusion. He has, as mentioned, recurrent pleural effusion and pneumonia. He has got end-stage renal disease and is on hemodialysis. He also has a history of coronary disease and has had a pacemaker put in in the past. MEDICATIONS: Prior to the admission include: 1. [place]. 2. Ferrous sulfate. 3. Lopressor. 4. Nifedical. 5. Lantus. 6. NovoLog. 7. Clopidogrel. 8. Aspirin. 9. Renvela. 10. Atorvastatin. 11. Calcium acetate. 12. Benazepril. 13. Vitamin D. 14. [place]alo. Famotidine. ALLERGIES: THE PATIENT HAS NO KNOWN ALLERGIES. PHYSICAL EXAMINATION: GENERAL: The patient is a 60-year-old [place] gentleman, alert. He is having dialysis now. VITAL SIGNS: Pulse is 78, blood pressure is 110/78. CARDIOVASCULAR: Normal heart sounds. RESPIRATORY: Normal breath sounds. He has decreased breath sounds on the right side of the chest. ABDOMEN: Showed unremarkable findings. LABORATORY WORKUP: Potassium 5.2 yesterday. He is on dialysis now. Bilirubin 0.4, AST 68, ALT 24, alkaline phosphatase is 101. Albumin 2.7. Coagulation: INR of 1.16. Chest x-ray shows right ple ural effusion. The hemoglobin is 6.8, WBC count is 13,400. CLINICAL IMPRESSION: The patient presenting with history of difficulty in keeping his food down, he has been vomiting for several days. He has history of diabetes and chronic kidney disease. He cou ld have Dari of the esophagus, rule out peptic ulcer disease, rule out gastroesophageal reflux di sease. Doubt pancreatitis. Doubt any intraabdominal pathology. Other history includes diabetes, hypertens ion, kidney disease, right pleural effusion status post VATS. PLAN: At this time, recommend n.p.o. CAT scan of the abdomen to be done. Serum amylase and lipase need to be done. Continue Zofran and p.r.n. for vomiting. Once again, doctor, thank you for this consultation. Dictated By: CLAUDIO MUNIZ MD NC/NTS Conf#: [id number] DID#: [id number] CC: EVA PRICE MD;*EndCC*
--- NOTE | 2016-07-25 13:59 | CONS ---
Date/Time of Note Date/Time of Note DATE: 07/25/16 TIME: 13:55 Assessment/Plan Assessment/Plan Chief Complaint/Hosp Course 1. S/p right VATS procedure with pleurodesis with consequent pleural effusion. 2. End-stage renal disease on hemodialysis. 3. History of diabetes. 4. History of hypertension. 5. History of cardiac arrhythmia, status post pacemaker. 6. History of coronary artery bypass surgery. 7. Cardiomyopathy Problems: Additional Assessment/Plan 1. Continue HD 2. Continue airborne isolation 3. continue antibiotics Consultation Date/Type/Reason Admit Date/Time Jul 24, 2016 at 12:53 Initial Consult Date 07/25/16 Type of Consultation: Nephrology Reason for Consultation Dr Saunders Referring Provider: EVA COX MD 24 HR Interval Summary Free Text/Dictation 1. s/p right VATS procedure with pleurodesis. 2. End-stage renal disease on hemodialysis. 3. History of diabetes. 4. History of hypertension. 5. History of cardiac arrhythmia, status post pacemaker. 6. History of coronary artery bypass surgery. 7. Cardiomyopathy Subjective hx not possible: pt critical status Constitutional: no complaints Exam/Review of Systems Vital Signs Vitals Vital Signs Date Time Temp Pulse Resp B/P Pulse Ox O2 Delivery O2 Flow Rate FiO2 07/25/16 13:15 73 07/25/16 12:00 98.3 20 149/63 99 Room Air 07/25/16 08:00 2.0 07/25/16 01:55 27 Intake and Output 07/24/16 07/24/16 07/25/16 15:00 23:00 07:00 Intake Total 350 ml Balance 350 ml Exam Constitutional: alert, oriented Psych: nl mood/affect, no complaints Head: atraumatic, normocephalic Eyes: EOMI, nl conjunctiva ENMT: nl external ears & nose, nl lips & teeth Neck: non-tender, supple Respiratory: diminished breath sounds Cardiovascular: nl pulses, regular rate and rhythm Gastrointestinal: non-tender Genitourinary - Male: nl penis Musculoskeletal: nl extremities to inspection Extremities: normal pulses Skin: other (right AV shunt) Results Result Diagram: 07/25/16 0400 07/25/16 0400 Results 24 hrs Laboratory Tests Test 07/24/16 16:33 07/24/16 19:38 07/24/16 22:18 07/25/16 01:00 Hemoglobin 8.4 L Hematocrit 24.7 L Bedside Glucose 172 176 Creatine Kinase 81 Creatine Kinase Index 3.8 Creatinine Kinase MB (Mass) 3.09 H Troponin I 0.019 Test 07/25/16 04:00 07/25/16 07:50 07/25/16 11:55 White Blood Count 13.4 #H Red Blood Count 2.19 L Hemoglobin 6.8 *L Hematocrit 20.0 L Mean Corpuscular Volume 91.3 Mean Corpuscular Hemoglobin 31.1 Mean Corpuscular Hemoglobin Concent 34.0 Red Cell Distribution Width 14.7 H Platelet Count 163 # Mean Platelet Volume 10.1 Neutrophils % 82.6 H Lymphocytes % 8.8 L Monocytes % 7.6 Eosinophils % 0.1 Basophils % 0.4 Nucleated Red Blood Cells % 0.0 Neutrophils # 11.0 H Lymphocytes # 1.2 Monocytes # 1.0 H Eosinophils # 0.0 Basophils # 0.1 Nucleated Red Blood Cells # 0.0 Sodium Level 136 Potassium Level 5.9 H Chloride Level 99 Carbon Dioxide Level 24 Anion Gap 19 H Blood Urea Nitrogen 87 H Creatinine 9.02 H Glucose Level 164 Calcium Level 8.7 Creatine Kinase 74 Creatine Kinase Index 3.9 Creatinine Kinase MB (Mass) 2.89 H Troponin I 0.030 Bedside Glucose 174 119 Medications Medications Current Medications Pantoprazole (Protonix Iv) 40 mg DAILY IV Last administered on 07/25/16 08:25 ; Admin Dose 40 MG; Start 07/24/16 at 15:30 Aspirin (Halfprin) 81 mg DAILY PO Last administered on 07/25/16 08:27; Admin Dose 81 MG; Start 07/25/16 at 09:00 Atorvastatin Calcium (Lipitor) 10 mg QHS PO ; Start 07/24/16 at 21:00 Benazepril HCl (Lotensin) 40 mg BID PO Last administered on 07/25/16 08:27; Admin Dose 40 MG; Start 07/24/16 at 21:00 Cholecalciferol (Vitamin D) 400 units DAILY PO Last administered on 07/25/16 08:25; Admin Dose 400 UNITS; Start 07/25/16 at 09:00 Famotidine (Pepcid) 20 mg DAILY PO Last administered on 07/25/16 08:26; Admin Dose 20 MG; Start 07/25/16 at 09:00 Ferrous Sulfate (Ferrous Sulfate (Ec)) 325 mg BID PO Last administered on 08:26; Admin Dose 325 MG; Start 07/24/16 at 21:00 Acetaminophen/ Hydrocodone Bitart ([place] (5/325)) 1 tab Q4H PRN PO PAIN; Start 07/24/16 at 17:00 Insulin Glargine (Lantus) 6 unit DAILY@20 SC ; Start 07/24/16 at 20:00 Isoniazid (Isoniazid) 300 mg DAILY PO Last administered on 07/25/16 08:27; Admin Dose 300 MG; Start 07/24/16 at 15:30 Metoprolol Tartrate (Lopressor) 75 mg BID PO Last administered on 07/25/16 08: 26; Admin Dose 75 MG; Start 07/24/16 at 21:00 Nifedipine (Procardia Xl) 60 mg BID PO Last administered on 07/25/16 08:27; Admin Dose 60 MG; Start 07/24/16 at 21:00 Pyridoxine HCl (Vitamin B6) 50 mg DAILY PO Last administered on 07/25/16 08:27 ; Admin Dose 50 MG; Start 07/25/16 at 09:00 Rifampin (Rifampin) 600 mg DAILY PO Last administered on 07/25/16 08:27; Admin Dose 600 MG; Start 07/25/16 at 09:00 Pyrazinamide (Pyrazinamide) 1,500 mg TuThSa@20 PO ; Start 07/24/16 at 20:00 Ethambutol HCl (Myambutol) 1,200 mg TuThSa@20 PO ; Start 07/24/16 at 20:00 Miscellaneous Information 1 ea NOTE XX ; Start 07/24/16 at 16:00 Glucose (Glutose) 15 gm Q15M PRN PO DECREASED GLUCOSE; Start 07/24/16 at 16:00 Glucose (Glutose) 22.5 gm Q15M PRN PO DECREASED GLUCOSE; Start 07/24/16 at 16: 00 Dextrose (D50w Syringe) 25 ml Q15M PRN IV DECREASED GLUCOSE; Start 07/24/16 at 16:00 Dextrose (D50w Syringe) 50 ml Q15M PRN IV DECREASED GLUCOSE; Start 07/24/16 at 16:00 Glucagon (Glucagen) 1 mg Q15M PRN IM DECREASED GLUCOSE; Start 07/24/16 at 16:00 Glucose (Glutose) 15 gm Q15M PRN BUCCAL DECREASED GLUCOSE; Start 07/24/16 at 16 :00 Ondansetron HCl (Zofran Inj) 4 mg Q4 PRN IV nausea Last administered on 04:10; Admin Dose 4 MG; Start 07/24/16 at 17:00 Hydromorphone HCl (Dilaudid) 1 mg Q4 PRN IV pain Last administered on 09:05; Admin Dose 1 MG; Start 07/24/16 at 17:00 Metoclopramide HCl 5 mg 5 mg Q4H PRN IV NAUSEA Last administered on 07/25/16 11:53; Admin Dose 5 MG; Start 07/24/16 at 22:30 Albumin Human 100 ml @ 100 mls/hr Q1H IV Last administered on 07/25/16 13:25 ; Admin Dose 100 MLS/HR; Start 07/25/16 at 12:30; Stop 07/25/16 at 14:29 Ferric Sodium Gluconate Complex/ Sodium Chloride (Ferrlecit/NS) 110 ml @ 110 mls/hr Q24H IVPB ; Start 07/25/16 at 16:00; Stop 07/29/16 at 16:59 TERRIE YOST 24, 2017 13:59
--- NOTE | 2016-07-25 14:12 | PN ---
Date/Time of Note Date/Time of Note DATE: 07/25/16 TIME: 14:10 Assessment/Plan VTE Prophylaxis VTE Prophylaxis Intervention: other Lines/Catheters IV [facility] Urinary Cath still in place: No Assessment/Plan Chief Complaint/Hosp Course IMPRESSION: Right chest tube site bleeding, which has now subsided completely. Would monitor the hemoglobin levels and stop the antiplatelet. Discussed with the referring physicians. possible thorocentesis per IR Problems: Subjective 24 Hr Interval Summary Gastrointestinal: no complaints Genitourinary: no complaints Musculoskeletal: no complaints Skin: no complaints Exam/Review of Systems Vital Signs Vitals Vital Signs Date Time Temp Pulse Resp B/P Pulse Ox O2 Delivery O2 Flow Rate FiO2 07/25/16 14:00 73 07/25/16 12:00 98.3 20 149/63 99 Room Air 07/25/16 08:00 2.0 07/25/16 01:55 27 Intake and Output 07/24/16 07/24/16 07/25/16 15:00 23:00 07:00 Intake Total 350 ml Balance 350 ml Exam Neck: non-tender, supple Respiratory: clear to auscultation, normal air movement Cardiovascular: nl pulses, regular rate and rhythm Results Result Diagram: 07/25/16 0400 07/25/16 0400 Results 24 hrs Laboratory Tests Test 07/24/16 16:33 07/24/16 19:38 07/24/16 22:18 07/25/16 01:00 Hemoglobin 8.4 L Hematocrit 24.7 L Bedside Glucose 172 176 Creatine Kinase 81 Creatine Kinase Index 3.8 Creatinine Kinase MB (Mass) 3.09 H Troponin I 0.019 Test 07/25/16 04:00 07/25/16 07:50 07/25/16 11:55 White Blood Count 13.4 #H Red Blood Count 2.19 L Hemoglobin 6.8 *L Hematocrit 20.0 L Mean Corpuscular Volume 91.3 Mean Corpuscular Hemoglobin 31.1 Mean Corpuscular Hemoglobin Concent 34.0 Red Cell Distribution Width 14.7 H Platelet Count 163 # Mean Platelet Volume 10.1 Neutrophils % 82.6 H Lymphocytes % 8.8 L Monocytes % 7.6 Eosinophils % 0.1 Basophils % 0.4 Nucleated Red Blood Cells % 0.0 Neutrophils # 11.0 H Lymphocytes # 1.2 Monocytes # 1.0 H Eosinophils # 0.0 Basophils # 0.1 Nucleated Red Blood Cells # 0.0 Sodium Level 136 Potassium Level 5.9 H Chloride Level 99 Carbon Dioxide Level 24 Anion Gap 19 H Blood Urea Nitrogen 87 H Creatinine 9.02 H Glucose Level 164 Calcium Level 8.7 Creatine Kinase 74 Creatine Kinase Index 3.9 Creatinine Kinase MB (Mass) 2.89 H Troponin I 0.030 Bedside Glucose 174 119 Medications Medications Current Medications Pantoprazole (Protonix Iv) 40 mg DAILY IV Last administered on 07/25/16 08:25 ; Admin Dose 40 MG; Start 07/24/16 at 15:30 Aspirin (Halfprin) 81 mg DAILY PO Last administered on 07/25/16 08:27; Admin Dose 81 MG; Start 07/25/16 at 09:00 Atorvastatin Calcium (Lipitor) 10 mg QHS PO ; Start 07/24/16 at 21:00 Benazepril HCl (Lotensin) 40 mg BID PO Last administered on 07/25/16 08:27; Admin Dose 40 MG; Start 07/24/16 at 21:00 Cholecalciferol (Vitamin D) 400 units DAILY PO Last administered on 07/25/16 08:25; Admin Dose 400 UNITS; Start 07/25/16 at 09:00 Famotidine (Pepcid) 20 mg DAILY PO Last administered on 07/25/16 08:26; Admin Dose 20 MG; Start 07/25/16 at 09:00 Ferrous Sulfate (Ferrous Sulfate (Ec)) 325 mg BID PO Last administered on 08:26; Admin Dose 325 MG; Start 07/24/16 at 21:00 Acetaminophen/ Hydrocodone Bitart ([place] (5/325)) 1 tab Q4H PRN PO PAIN; Start 07/24/16 at 17:00 Insulin Glargine (Lantus) 6 unit DAILY@20 SC ; Start 07/24/16 at 20:00 Isoniazid (Isoniazid) 300 mg DAILY PO Last administered on 07/25/16 08:27; Admin Dose 300 MG; Start 07/24/16 at 15:30 Metoprolol Tartrate (Lopressor) 75 mg BID PO Last administered on 07/25/16 08: 26; Admin Dose 75 MG; Start 07/24/16 at 21:00 Nifedipine (Procardia Xl) 60 mg BID PO Last administered on 07/25/16 08:27; Admin Dose 60 MG; Start 07/24/16 at 21:00 Pyridoxine HCl (Vitamin B6) 50 mg DAILY PO Last administered on 07/25/16 08:27 ; Admin Dose 50 MG; Start 07/25/16 at 09:00 Rifampin (Rifampin) 600 mg DAILY PO Last administered on 07/25/16 08:27; Admin Dose 600 MG; Start 07/25/16 at 09:00 Pyrazinamide (Pyrazinamide) 1,500 mg TuThSa@20 PO ; Start 07/24/16 at 20:00 Ethambutol HCl (Myambutol) 1,200 mg TuThSa@20 PO ; Start 07/24/16 at 20:00 Miscellaneous Information 1 ea NOTE XX ; Start 07/24/16 at 16:00 Glucose (Glutose) 15 gm Q15M PRN PO DECREASED GLUCOSE; Start 07/24/16 at 16:00 Glucose (Glutose) 22.5 gm Q15M PRN PO DECREASED GLUCOSE; Start 07/24/16 at 16: 00 Dextrose (D50w Syringe) 25 ml Q15M PRN IV DECREASED GLUCOSE; Start 07/24/16 at 16:00 Dextrose (D50w Syringe) 50 ml Q15M PRN IV DECREASED GLUCOSE; Start 07/24/16 at 16:00 Glucagon (Glucagen) 1 mg Q15M PRN IM DECREASED GLUCOSE; Start 07/24/16 at 16:00 Glucose (Glutose) 15 gm Q15M PRN BUCCAL DECREASED GLUCOSE; Start 07/24/16 at 16 :00 Ondansetron HCl (Zofran Inj) 4 mg Q4 PRN IV nausea Last administered on 04:10; Admin Dose 4 MG; Start 07/24/16 at 17:00 Hydromorphone HCl (Dilaudid) 1 mg Q4 PRN IV pain Last administered on 09:05; Admin Dose 1 MG; Start 07/24/16 at 17:00 Metoclopramide HCl 5 mg 5 mg Q4H PRN IV NAUSEA Last administered on 07/25/16 11:53; Admin Dose 5 MG; Start 07/24/16 at 22:30 Albumin Human 100 ml @ 100 mls/hr Q1H IV Last administered on 3/24/17at 13:25 ; Admin Dose 100 MLS/HR; Start 07/25/16 at 12:30; Stop 07/25/16 at 14:29 Ferric Sodium Gluconate Complex/ Sodium Chloride (Ferrlecit/NS) 110 ml @ 110 mls/hr Q24H IVPB ; Start 07/25/16 at 16:00; Stop 07/29/16 at 16:59 LILIA FELIZ MD Jul 25, 2016 14:12
[2016-07-25 14:18] LABS: AMYLASE 59 U/L (11-123)
[2016-07-25] MEDS ORDERED: BARIUM SULF 2% 450 ML BTL (BERRY SMOOTHIE) PO ONE (15:00)
[2016-07-25] MEDS: SOD FERRIC GLUC COMPLX 125 MG in SOD CHLORIDE 0.9% 100 ML IVPB SCH (16:11)
--- NOTE | 2016-07-25 17:29 | CONS ---
Date/Time of Note Date/Time of Note DATE: 07/25/16 TIME: 17:23 Assessment/Plan Assessment/Plan Chief Complaint/Hosp Course - Recurrent hemoptysis - CT site bleeding now apparently resolved - Anemia, - Recurrent pleural effusions. Dr. Martinez is following in thoracic surgery consultation. S/p VATS 06/30. Biopsy revealed granulomatous inflammation with focal necrosis and extensive hyalinization. Sputum for AFB negative 3. - Quantiferon Gold positive, prior Hx of TB per department of health, s/p treatment in 1998, continue TB therapy. - Right pleural effusion, status post thoracentesis. Dr. Dale is following in pulmonology consultation. -abd pain--closely associated w/ start of TB Tx--rec: monitoring LFT's QOD - End-stage renal disease, continue hemodialysis. Dr. Saunders is following in nephrology consultation. - Diabetes mellitus type 2, continue Lantus, pre-meal NovoLog and NovoLog per mild algorithm sliding scale. - Hypertension. Dr. De Santiago is following and cardiology consultation. Continue benazepril metoprolol hydralazine Procardia - Coronary artery disease, status post coronary artery bypass graft. - Permanent pacemaker. No acute issues. - Dyslipidemia. Continue Lipitor. R: cont RIPE monitor LFTS [facility] f/u repeat afb will d/w rest of team Problems: Consultation Date/Type/Reason Admit Date/Time Jul 24, 2016 at 12:53 Date of Consultation: Jul 25, 2016 Reason for Consultation abx recs Referring Provider: EVA COX MD Hx of Present Illness This is a 60 yo male with hx of esrd on hd, apparent previous TB, anemia, recent admit for hemoptysis and started on 4 drug RIPE regimen. He recently has been noted to have recurrent hemoptysis and has been admitted. Constitutional: no complaints Eyes: no complaints ENT: no complaints Respiratory: other (right chest tube site bleeding), pleuritic pain, shortness of breath Gastrointestinal: no complaints Genitourinary: no complaints Musculoskeletal: no complaints Skin: other Neurologic: no complaints Psychological: no complaints Immunologic: no complaints Past Surgical History Past Surgical Hx: no surgical history, angioplasty, other Social History Alcohol Use: none Smoking Status: Former smoker Drug Use: other Exam/Review of Systems Vital Signs Vitals Vital Signs Date Time Temp Pulse Resp B/P Pulse Ox O2 Delivery O2 Flow Rate FiO2 07/25/16 16:00 86 07/25/16 16:00 98.5 17 168/64 97 Nasal Cannula 07/25/16 14:51 2.0 07/25/16 01:55 27 Intake and Output 07/24/16 07/24/16 07/25/16 15:00 23:00 07:00 Intake Total 350 ml Balance 350 ml Exam Constitutional: alert, oriented, well developed Psych: nl mood/affect, no complaints Head: atraumatic, normocephalic Eyes: EOMI, PERRL, nl conjunctiva, nl lids, nl sclera ENMT: nl external ears & nose, nl lips & teeth, nl nasal mucosa & septum Neck: non-tender, supple Respiratory: clear to auscultation Cardiovascular: regular rate and rhythm Gastrointestinal: non-tender, soft Results Result Diagram: 07/25/16 0400 07/25/16 0400 Results 24 hrs Laboratory Tests Test 07/24/16 19:38 07/24/16 22:18 07/25/16 01:00 07/25/16 04:00 Bedside Glucose 172 176 Creatine Kinase 81 74 Creatine Kinase Index 3.8 3.9 Creatinine Kinase MB (Mass) 3.09 H 2.89 H Troponin I 0.019 0.030 White Blood Count 13.4 #H Red Blood Count 2.19 L Hemoglobin 6.8 *L Hematocrit 20.0 L Mean Corpuscular Volume 91.3 Mean Corpuscular Hemoglobin 31.1 Mean Corpuscular Hemoglobin Concent 34.0 Red Cell Distribution Width 14.7 H Platelet Count 163 # Mean Platelet Volume 10.1 Neutrophils % 82.6 H Lymphocytes % 8.8 L Monocytes % 7.6 Eosinophils % 0.1 Basophils % 0.4 Nucleated Red Blood Cells % 0.0 Neutrophils # 11.0 H Lymphocytes # 1.2 Monocytes # 1.0 H Eosinophils # 0.0 Basophils # 0.1 Nucleated Red Blood Cells # 0.0 Sodium Level 136 Potassium Level 5.9 H Chloride Level 99 Carbon Dioxide Level 24 Anion Gap 19 H Blood Urea Nitrogen 87 H Creatinine 9.02 H Glucose Level 164 Calcium Level 8.7 Amylase Level 59 Lipase 116 Test 07/25/16 07:50 07/25/16 11:55 Bedside Glucose 174 119 Medications Medications Current Medications Pantoprazole (Protonix Iv) 40 mg DAILY IV Last administered on 07/25/16 08:25 ; Admin Dose 40 MG; Start 07/24/16 at 15:30 Aspirin (Halfprin) 81 mg DAILY PO Last administered on 07/25/16 08:27; Admin Dose 81 MG; Start 07/25/16 at 09:00 Atorvastatin Calcium (Lipitor) 10 mg QHS PO ; Start 07/24/16 at 21:00 Benazepril HCl (Lotensin) 40 mg BID PO Last administered on 07/25/16 08:27; Admin Dose 40 MG; Start 07/24/16 at 21:00 Cholecalciferol (Vitamin D) 400 units DAILY PO Last administered on 07/25/16 08:25; Admin Dose 400 UNITS; Start 07/25/16 at 09:00 Famotidine (Pepcid) 20 mg DAILY PO Last administered on 07/25/16 08:26; Admin Dose 20 MG; Start 07/25/16 at 09:00 Ferrous Sulfate (Ferrous Sulfate (Ec)) 325 mg BID PO Last administered on 08:26; Admin Dose 325 MG; Start 07/24/16 at 21:00 Acetaminophen/ Hydrocodone Bitart ([place] (5/325)) 1 tab Q4H PRN PO PAIN; Start 07/24/16 at 17:00 Insulin Glargine (Lantus) 6 unit DAILY@20 SC ; Start 07/24/16 at 20:00 Isoniazid (Isoniazid) 300 mg DAILY PO Last administered on 07/25/16 08:27; Admin Dose 300 MG; Start 07/24/16 at 15:30 Metoprolol Tartrate (Lopressor) 75 mg BID PO Last administered on 07/25/16 08: 26; Admin Dose 75 MG; Start 07/24/16 at 21:00 Nifedipine (Procardia Xl) 60 mg BID PO Last administered on 07/25/16 08:27; Admin Dose 60 MG; Start 07/24/16 at 21:00 Pyridoxine HCl (Vitamin B6) 50 mg DAILY PO Last administered on 07/25/16 08:27 ; Admin Dose 50 MG; Start 07/25/16 at 09:00 Rifampin (Rifampin) 600 mg DAILY PO Last administered on 07/25/16 08:27; Admin Dose 600 MG; Start 07/25/16 at 09:00 Pyrazinamide (Pyrazinamide) 1,500 mg TuThSa@20 PO ; Start 07/24/16 at 20:00 Ethambutol HCl (Myambutol) 1,200 mg TuThSa@20 PO ; Start 07/24/16 at 20:00 Miscellaneous Information 1 ea NOTE XX ; Start 07/24/16 at 16:00 Glucose (Glutose) 15 gm Q15M PRN PO DECREASED GLUCOSE; Start 07/24/16 at 16:00 Glucose (Glutose) 22.5 gm Q15M PRN PO DECREASED GLUCOSE; Start 07/24/16 at 16: 00 Dextrose (D50w Syringe) 25 ml Q15M PRN IV DECREASED GLUCOSE; Start 07/24/16 at 16:00 Dextrose (D50w Syringe) 50 ml Q15M PRN IV DECREASED GLUCOSE; Start 07/24/16 at 16:00 Glucagon (Glucagen) 1 mg Q15M PRN IM DECREASED GLUCOSE; Start 07/24/16 at 16:00 Glucose (Glutose) 15 gm Q15M PRN BUCCAL DECREASED GLUCOSE; Start 07/24/16 at 16 :00 Ondansetron HCl (Zofran Inj) 4 mg Q4 PRN IV nausea Last administered on 15:13; Admin Dose 4 MG; Start 07/24/16 at 17:00 Hydromorphone HCl (Dilaudid) 1 mg Q4 PRN IV pain Last administered on 15:16; Admin Dose 1 MG; Start 07/24/16 at 17:00 Metoclopramide HCl 5 mg 5 mg Q4H PRN IV NAUSEA Last administered on 07/25/16 11:53; Admin Dose 5 MG; Start 07/24/16 at 22:30 Ferric Sodium Gluconate Complex/ Sodium Chloride (Ferrlecit/NS) 110 ml @ 110 mls/hr Q24H IVPB Last administered on 07/25/16 16:11; Admin Dose 110 MLS/HR; Start 07/25/16 at 16:00; Stop 07/29/16 at 16:59 BRENDA ISRAEL MD Jul 25, 2016 17:29
[2016-07-25] MEDS: ENALAPRILAT 1.25 MG INJ IV PRN ×2 (18:27→21:13)
[2016-07-25] MEDS: ATORVASTATIN 10 MG TAB PO SCH (20:46)
[2016-07-25] MEDS: INSULIN GLARGINE [LANtus] 3 ML PEN SC SCH (20:54)
[2016-07-26] VITALS (29 sets, daily range): BP systolic 151–215; BP diastolic 61–97; PULSE 69–76; RESP 12–27
--- NOTE | 2016-07-26 02:11 | RADRPT ---
PROCEDURE: CT Abdomen and pelvis without contrast. CLINICAL INDICATION: Abdominal pain. TECHNIQUE: CT scan of the abdomen and pelvis was performed on a multi-detector high-resolution CT scanner. Contiguous axial images were obtained from the lung bases to the ischial tuberosities wit hout intravenous contrast. Coronal and sagittal reformatted images were also obtained. Images were reviewed on the PACS workstation. One or more of the following dose reduction techniques were used: - Automated exposure control. - Adjustment of the mA and/or kV according to patient size. - Use of iterative reconstruction technique. Exam CTD/vol = 5.14 mGy. Total exam DLP = 303.82 mGy-cm. COMPARISON: None. FINDINGS: Evaluation of the lung bases demonstrates right basilar atelectasis/consolidation and large complex pleural collection with hyperdensities suggestive of hemothorax. There are bibasilar air space opac ities. Abdomen: The liver is normal in size. There is no focal mass or dilatation of the biliary tree. T he gallbladder is not distended. The spleen, pancreas and bilateral adrenal glands are within bee l limits. Bilateral kidneys are normal in size with no contour deforming mass identified. There is no radiopaque renal or ureteral calculus identified. There is no hydronephrosis or hydroureter. T here is no retroperitoneal adenopathy. The abdominal aorta is of normal caliber with scattered athe rosclerotic calcifications. Oral contrast reaches the descending colon. There is mild thickening of the colon. There is no bow el obstruction or free air. A normal appendix is identified. There is no diverticulosis or diverti culitis. There is no ascites. Pelvis: The bladder is unremarkable. The prostate is mildly enlarged. There is mild subcutaneous stranding consistent with anasarca. There is no significant pelvic adenopathy or free fluid. Evaluation of the osseous structures demonstrates no suspicious lytic or blastic lesion. IMPRESSION: Right basilar atelectasis/consolidation and large pleural collection suggestive of hemothorax. Bibasilar air space opacities. Mild thickening of the colon represents nonspecific infectious/inflammatory colitis. Vascular calcifications reflective of atherosclerosis. Mildly enlarged prostate. Mild anasarca. .Po Hoyos MD, MD Date Time Electronically viewed and signed by .Po Hoyos MD, on 07/26/2016 02:11 .T/
[2016-07-26 05:55] LABS: ADD SCAN DIFF NO
[2016-07-26 06:05] LABS: BASOPHIL # 0.1 10^3/ul (0.0-0.1); BASOPHILS % 0.6 % (0.0-2.0); EOSINOPHILS # 0.1 10^3/ul (0.0-0.5); EOSINOPHILS % 1.1 % (0.0-7.0); HEMATOCRIT 26.3 % (42.0-52.0); HEMOGLOBIN 9.3 g/dl (14.0-18.0); LYMPHOCYTES # 1.2 10^3/ul (0.8-2.9); LYMPHOCYTES % 11.1 % (15.0-51.0); MEAN CORPUSCULAR HEMOGLOBIN 31.2 pg (29.0-33.0); MEAN CORPUSCULAR HGB CONC 35.4 g/dl (32.0-37.0); MEAN CORPUSCULAR VOLUME 88.3 fl (82.0-101.0); MEAN PLATELET VOLUME 9.9 fl (7.4-10.4); MONOCYTE # 1.3 10^3/ul (0.3-0.9); MONOCYTES % 12.2 % (0.0-11.0); NEUTROPHIL # 7.8 10^3/ul (1.6-7.5); NEUTROPHILS % 74.5 % (39.0-77.0); NUCLEATED RED BLOOD CELLS% 0.2 /100WBC (0.0-0.0); PLATELET COUNT 118 10^3/UL (140-415); RED BLOOD COUNT 2.98 10^6/ul (4.70-6.10); RED CELL DISTRIBUTION WIDTH 14.7 % (11.5-14.5); WHITE BLOOD COUNT 10.5 10^3/ul (4.8-10.8)
[2016-07-26 06:06] LABS: RETICULOCYTE COUNT % 0.8 % (0.5-1.5)
[2016-07-26 06:18] LABS: POTASSIUM 3.6 mmol/L (3.5-5.1)
[2016-07-26 06:20] LABS: CREATININE 5.87 mg/dl (0.61-1.24); IRON 127 ug/dl (35-150)
[2016-07-26 06:21] LABS: CALCIUM 8.4 mg/dl (8.4-10.2)
[2016-07-26 06:22] LABS: LACTATE DEHYDROGENASE 612 IU/L (313-618)
[2016-07-26] MEDS: ENALAPRILAT 1.25 MG INJ IV PRN ×4 (06:58→22:42)
--- NOTE | 2016-07-26 07:00 | CONS ---
Date/Time of Note Date/Time of Note DATE: 07/26/16 TIME: 06:57 Assessment/Plan Assessment/Plan Chief Complaint/Hosp Course - Recurrent hemoptysis - CT shows Right basilar atelectasis/consolidation and large pleural collection suggestive of hemothorax. - CT site bleeding now apparently resolved - Anemia, - Recurrent pleural effusions. Dr. Martinez is following in thoracic surgery consultation. S/p VATS 06/30. Biopsy revealed granulomatous inflammation with focal necrosis and extensive hyalinization. Sputum for AFB negative 3. - Quantiferon Gold positive, prior Hx of TB per department of health, s/p treatment in 1998, continue TB therapy. - Right pleural effusion, status post thoracentesis. Dr. Dale is following in pulmonology consultation. -abd pain--closely associated w/ start of TB Tx--rec: monitoring LFT's QOD - End-stage renal disease, continue hemodialysis. Dr. Saunders is following in nephrology consultation. - Diabetes mellitus type 2, continue Lantus, pre-meal NovoLog and NovoLog per mild algorithm sliding scale. - Hypertension. Dr. De Santiago is following and cardiology consultation. Continue benazepril metoprolol hydralazine Procardia - Coronary artery disease, status post coronary artery bypass graft. - Permanent pacemaker. No acute issues. - Dyslipidemia. Continue Lipitor. R: cont RIPE monitor LFTS [facility] f/u repeat afb will d/w rest of team Problems: Consultation Date/Type/Reason Admit Date/Time Jul 24, 2016 at 12:53 Initial Consult Date 07/24/16 Type of Consultation: id Referring Provider: EVA COX MD Exam/Review of Systems Vital Signs Vitals Vital Signs Date Time Temp Pulse Resp B/P Pulse Ox O2 Delivery O2 Flow Rate FiO2 07/26/16 06:00 70 27 193/73 100 Nasal Cannula 2.0 07/26/16 04:00 98.2 07/25/16 01:55 27 Intake and Output 07/25/16 07/25/16 07/26/16 15:00 23:00 07:00 Intake Total 3110 ml 730 ml Output Total 3500 ml 2000 ml 350 ml Balance -390 ml -1270 ml -350 ml Results Result Diagram: 07/26/16 0430 07/26/16 0430 Results 24 hrs Laboratory Tests Test 07/25/16 07:50 07/25/16 11:55 07/25/16 18:20 07/25/16 20:42 Bedside Glucose 174 119 144 133 Test 07/26/16 04:30 White Blood Count 10.5 # Red Blood Count 2.98 #L Hemoglobin 9.3 #L Hematocrit 26.3 #L Mean Corpuscular Volume 88.3 Mean Corpuscular Hemoglobin 31.2 Mean Corpuscular Hemoglobin Concent 35.4 Red Cell Distribution Width 14.7 H Platelet Count 118 #L Mean Platelet Volume 9.9 Neutrophils % 74.5 Lymphocytes % 11.1 L Monocytes % 12.2 H Eosinophils % 1.1 Basophils % 0.6 Nucleated Red Blood Cells % 0.2 H Neutrophils # 7.8 H Lymphocytes # 1.2 Monocytes # 1.3 H Eosinophils # 0.1 Basophils # 0.1 Nucleated Red Blood Cells # 0.0 Absolute Reticulocyte Count 0.023 Percent Reticulocyte Count 0.8 Sodium Level 137 Potassium Level 3.6 # Chloride Level 95 L Carbon Dioxide Level 29 Anion Gap 17 H Blood Urea Nitrogen 47 #H Creatinine 5.87 #H Glucose Level 156 Calcium Level 8.4 Iron Level 127 Total Iron Binding Capacity 181 L Percent Iron Saturation 70 H Medications Medications Current Medications Pantoprazole (Protonix Iv) 40 mg DAILY IV Last administered on 07/25/16 08:25 ; Admin Dose 40 MG; Start 07/24/16 at 15:30 Aspirin (Halfprin) 81 mg DAILY PO Last administered on 07/25/16 08:27; Admin Dose 81 MG; Start 07/25/16 at 09:00 Atorvastatin Calcium (Lipitor) 10 mg QHS PO Last administered on 07/25/16 20: 46; Admin Dose 10 MG; Start 07/24/16 at 21:00 Benazepril HCl (Lotensin) 40 mg BID PO Last administered on 07/25/16 20:46; Admin Dose 40 MG; Start 07/24/16 at 21:00 Cholecalciferol (Vitamin D) 400 units DAILY PO Last administered on 07/25/16 08:25; Admin Dose 400 UNITS; Start 07/25/16 at 09:00 Famotidine (Pepcid) 20 mg DAILY PO Last administered on 07/25/16 08:26; Admin Dose 20 MG; Start 07/25/16 at 09:00 Ferrous Sulfate (Ferrous Sulfate (Ec)) 325 mg BID PO Last administered on 20:45; Admin Dose 325 MG; Start 07/24/16 at 21:00 Acetaminophen/ Hydrocodone Bitart ([place] (5/325)) 1 tab Q4H PRN PO PAIN; Start 07/24/16 at 17:00 Insulin Glargine (Lantus) 6 unit DAILY@20 SC Last administered on 07/25/16 20: 54; Admin Dose 6 UNIT; Start 07/24/16 at 20:00 Isoniazid (Isoniazid) 300 mg DAILY PO Last administered on 07/25/16 08:27; Admin Dose 300 MG; Start 07/24/16 at 15:30 Metoprolol Tartrate (Lopressor) 75 mg BID PO Last administered on 07/25/16 20: 45; Admin Dose 75 MG; Start 07/24/16 at 21:00 Nifedipine (Procardia Xl) 60 mg BID PO Last administered on 07/25/16 21:02; Admin Dose 60 MG; Start 07/24/16 at 21:00 Pyridoxine HCl (Vitamin B6) 50 mg DAILY PO Last administered on 07/25/16 08:27 ; Admin Dose 50 MG; Start 07/25/16 at 09:00 Rifampin (Rifampin) 600 mg DAILY PO Last administered on 07/25/16 08:27; Admin Dose 600 MG; Start 07/25/16 at 09:00 Pyrazinamide (Pyrazinamide) 1,500 mg TuThSa@20 PO ; Start 07/24/16 at 20:00 Ethambutol HCl (Myambutol) 1,200 mg TuThSa@20 PO ; Start 07/24/16 at 20:00 Miscellaneous Information 1 ea NOTE XX ; Start 07/24/16 at 16:00 Glucose (Glutose) 15 gm Q15M PRN PO DECREASED GLUCOSE; Start 07/24/16 at 16:00 Glucose (Glutose) 22.5 gm Q15M PRN PO DECREASED GLUCOSE; Start 07/24/16 at 16: 00 Dextrose (D50w Syringe) 25 ml Q15M PRN IV DECREASED GLUCOSE; Start 07/24/16 at 16:00 Dextrose (D50w Syringe) 50 ml Q15M PRN IV DECREASED GLUCOSE; Start 07/24/16 at 16:00 Glucagon (Glucagen) 1 mg Q15M PRN IM DECREASED GLUCOSE; Start 07/24/16 at 16:00 Glucose (Glutose) 15 gm Q15M PRN BUCCAL DECREASED GLUCOSE; Start 07/24/16 at 16 :00 Ondansetron HCl (Zofran Inj) 4 mg Q4 PRN IV nausea Last administered on 21:55; Admin Dose 4 MG; Start 07/24/16 at 17:00 Hydromorphone HCl (Dilaudid) 1 mg Q4 PRN IV pain Last administered on 15:16; Admin Dose 1 MG; Start 07/24/16 at 17:00 Metoclopramide HCl 5 mg 5 mg Q4H PRN IV NAUSEA Last administered on 07/25/16 11:53; Admin Dose 5 MG; Start 07/24/16 at 22:30 Ferric Sodium Gluconate Complex/ Sodium Chloride (Ferrlecit/NS) 110 ml @ 110 mls/hr Q24H IVPB Last administered on 07/25/16 16:11; Admin Dose 110 MLS/HR; Start 07/25/16 at 16:00; Stop 07/29/16 at 16:59 Enalaprilat (Vasotec Iv) 1.25 mg Q2H PRN IV ELEVATED SYSTOLIC BP Last administered on 07/25/16 21:13; Admin Dose 1.25 MG; Start 07/25/16 at 18:30 BRENDA ISRAEL MD Jul 26, 2016 07:00
[2016-07-26 07:33] LABS: FOLATE 4.2 ng/ml (2.8-20.0)
[2016-07-26] MEDS: SEVELAMER CARBONATE 0.8 GM PKT PO SCH ×4 (07:35→17:35)
[2016-07-26] MEDS: CALCIUM ACETATE 667 MG CAP PO SCH ×4 (07:35→17:35)
[2016-07-26 07:52] LABS: TOTAL IRON BINDING CAPACITY 184 ug/dl (241-421)
[2016-07-26] MEDS: HYDROmorphONE 1 MG/ML SYG IV PRN ×2 (08:25→12:50)
[2016-07-26] MEDS: ONDANSETRON 4 MG INJ IV PRN ×3 (08:27→17:58)
[2016-07-26] MEDS: INSULIN ASPART [NOVOLOG] 3 ML PEN SC SCH ×4 (08:35→12:01)
[2016-07-26] MEDS: PANTOPRAZOLE 40 MG INJ IV SCH (08:37)
[2016-07-26] MEDS: METOPROLOL 25 MG TAB PO SCH (08:37)
[2016-07-26] MEDS: BENAZEPRIL 40 MG TAB PO SCH ×2 (08:38→20:26)
[2016-07-26] MEDS: FAMOTIDINE 20 MG TAB PO SCH (08:38)
[2016-07-26] MEDS: NIFEdipine (XL) 60 MG TAB PO SCH ×2 (08:38→20:26)
[2016-07-26] MEDS: ASPIRIN (EC) 81 MG TAB PO SCH (08:39)
[2016-07-26] MEDS: RIFAMPIN 300 MG CAP PO SCH (08:39)
[2016-07-26] MEDS: ISONIAZID 300 MG TAB PO SCH (08:40)
[2016-07-26] MEDS: PYRIDOXINE 50 MG TAB PO SCH (08:40)
[2016-07-26] MEDS: CHOLECALCIFEROL 400 UNITS TAB PO SCH (08:40)
[2016-07-26] MEDS: FERROUS SULFATE (EC) 325 MG TAB PO SCH ×2 (08:40→20:29)
[2016-07-26] MEDS: METOCLOPRAMIDE 10 MG INJ IV PRN (10:05)
--- NOTE | 2016-07-26 10:06 | PN ---
Date/Time of Note Date/Time of Note DATE: 07/26/16 TIME: 10:01 Assessment/Plan VTE Prophylaxis VTE Prophylaxis Intervention: other Lines/Catheters IV C[facility]ter Type [facility]from [facility] Central Line Urinary Cath still in place: No Assessment/Plan Assessment/Plan -Hemoptysis, Dr. Dale is following in pulmonology consultation. Dr. Tucker is following an infection disease consultation. -Right former chest tube site bleeding, resolved. Dr. Martinez is following in thoracic surgery consultation. -Anemia of acute blood loss, patient had bleeding from the right femoral catheter as well as chest tube site on admission, status post blood transfusion , continue to monitor hemoglobin and hematocrit. Dr. FREDERICK is asked to see patient in hematology consultation. -Recurrent right pleural effusion with consolidation. - Quantiferon Gold positive, prior Hx of TB per department of health, s/p treatment in 1998, continue RIPA. - End-stage renal disease, continue hemodialysis. Dr. Saunders is following in nephrology consultation. - Diabetes mellitus type 2, continue Lantus, pre-meal NovoLog and NovoLog per mild algorithm sliding scale. - Hypertension. Dr. De Santiago is following and cardiology consultation. Continue benazepril metoprolol hydralazine Procardia - Coronary artery disease, status post coronary artery bypass graft, s/p percutaneous transluminal coronary angioplasty and stent placement to left main and left anterior descending in 2014. - Permanent pacemaker. No acute issues. - Dyslipidemia. Continue Lipitor. Further recommendations based on clinical course. Total critical care time spent - 35 mins. Plan of care discussed with Dr. Price. Subjective 24 Hr Interval Summary Free Text/Dictation NAD, patient is alert, responsive, denies any complaints, feels better, remains on o2. DW Dr Martinez- regarding patient CT chest result, Asa/ Plavix on hold at leat x 3 days- plan for drainage possibly on thursday. dw staff. Constitutional: requiring IVF, requiring O2 Eyes: no complaints ENT: no complaints Respiratory: no complaints, other (sp right chest tube- no bleeding any more) Cardiovascular: no complaints Gastrointestinal: no complaints Genitourinary: no complaints Musculoskeletal: no complaints Skin: no complaints Neurologic: no complaints Exam/Review of Systems Vital Signs Vitals Vital Signs Date Time Temp Pulse Resp B/P Pulse Ox O2 Delivery O2 Flow Rate FiO2 07/26/16 09:00 70 18 179/71 100 Nasal Cannula 2.0 07/26/16 08:00 98.9 07/25/16 01:55 27 Intake and Output 07/25/16 07/25/16 07/26/16 14:59 22:59 06:59 Intake Total 1060 ml 2400 ml 380 ml Output Total 0 ml 5500 ml 350 ml Balance 1060 ml -3100 ml 30 ml Exam Constitutional: alert, oriented, well developed Psych: nl mood/affect Head: atraumatic Eyes: EOMI, PERRL, nl sclera ENMT: nl external ears & nose Neck: non-tender Respiratory: diminished breath sounds (nore on right as compared to left side) Cardiovascular: nl pulses Gastrointestinal: non-tender, soft Musculoskeletal: nl extremities to inspection Extremities: normal pulses Neurological: nl mental status, nl speech Lymph: nontender Results Result Diagram: 07/26/16 0430 07/26/16 0430 Results 24 hrs Laboratory Tests Test 07/25/16 11:55 07/25/16 18:20 07/25/16 20:42 07/26/16 04:30 Bedside Glucose 119 144 133 White Blood Count 10.5 # Red Blood Count 2.98 #L Hemoglobin 9.3 #L Hematocrit 26.3 #L Mean Corpuscular Volume 88.3 Mean Corpuscular Hemoglobin 31.2 Mean Corpuscular Hemoglobin Concent 35.4 Red Cell Distribution Width 14.7 H Platelet Count 118 #L Mean Platelet Volume 9.9 Neutrophils % 74.5 Lymphocytes % 11.1 L Monocytes % 12.2 H Eosinophils % 1.1 Basophils % 0.6 Nucleated Red Blood Cells % 0.2 H Neutrophils # 7.8 H Lymphocytes # 1.2 Monocytes # 1.3 H Eosinophils # 0.1 Basophils # 0.1 Nucleated Red Blood Cells # 0.0 Absolute Reticulocyte Count 0.023 Percent Reticulocyte Count 0.8 Sodium Level 137 Potassium Level 3.6 # Chloride Level 95 L Carbon Dioxide Level 29 Anion Gap 17 H Blood Urea Nitrogen 47 #H Creatinine 5.87 #H Glucose Level 156 Calcium Level 8.4 Iron Level 127 Total Iron Binding Capacity 184 L Percent Iron Saturation 69 H Ferritin 2010.0 H Lactate Dehydrogenase 612 Vitamin B12 Level > 1000 H Folate 4.2 Test 07/26/16 08:31 Bedside Glucose 122 Medications Medications Current Medications Pantoprazole (Protonix Iv) 40 mg DAILY IV Last administered on 07/26/16 08:37 ; Admin Dose 40 MG; Start 07/24/16 at 15:30 Aspirin (Halfprin) 81 mg DAILY PO Last administered on 07/26/16 08:39; Admin Dose 81 MG; Start 07/25/16 at 09:00 Atorvastatin Calcium (Lipitor) 10 mg QHS PO Last administered on 07/25/16 20: 46; Admin Dose 10 MG; Start 07/24/16 at 21:00 Benazepril HCl (Lotensin) 40 mg BID PO Last administered on 07/26/16 08:38; Admin Dose 40 MG; Start 07/24/16 at 21:00 Cholecalciferol (Vitamin D) 400 units DAILY PO Last administered on 07/25/16 08:25; Admin Dose 400 UNITS; Start 07/25/16 at 09:00 Famotidine (Pepcid) 20 mg DAILY PO Last administered on 07/26/16 08:38; Admin Dose 20 MG; Start 07/25/16 at 09:00 Ferrous Sulfate (Ferrous Sulfate (Ec)) 325 mg BID PO Last administered on 20:45; Admin Dose 325 MG; Start 07/24/16 at 21:00 Acetaminophen/ Hydrocodone Bitart ([place] (5/325)) 1 tab Q4H PRN PO PAIN; Start 07/24/16 at 17:00 Insulin Glargine (Lantus) 6 unit DAILY@20 SC Last administered on 07/25/16 20: 54; Admin Dose 6 UNIT; Start 07/24/16 at 20:00 Isoniazid (Isoniazid) 300 mg DAILY PO Last administered on 07/26/16 08:40; Admin Dose 300 MG; Start 07/24/16 at 15:30 Metoprolol Tartrate (Lopressor) 75 mg BID PO Last administered on 07/26/16 08: 37; Admin Dose 75 MG; Start 07/24/16 at 21:00 Nifedipine (Procardia Xl) 60 mg BID PO Last administered on 07/26/16 08:38; Admin Dose 60 MG; Start 07/24/16 at 21:00 Pyridoxine HCl (Vitamin B6) 50 mg DAILY PO Last administered on 07/25/16 08:27 ; Admin Dose 50 MG; Start 07/25/16 at 09:00 Rifampin (Rifampin) 600 mg DAILY PO Last administered on 07/26/16 08:39; Admin Dose 600 MG; Start 07/25/16 at 09:00 Pyrazinamide (Pyrazinamide) 1,500 mg TuThSa@20 PO ; Start 07/24/16 at 20:00 Ethambutol HCl (Myambutol) 1,200 mg TuThSa@20 PO ; Start 07/24/16 at 20:00 Miscellaneous Information 1 ea NOTE XX ; Start 07/24/16 at 16:00 Glucose (Glutose) 15 gm Q15M PRN PO DECREASED GLUCOSE; Start 07/24/16 at 16:00 Glucose (Glutose) 22.5 gm Q15M PRN PO DECREASED GLUCOSE; Start 07/24/16 at 16: 00 Dextrose (D50w Syringe) 25 ml Q15M PRN IV DECREASED GLUCOSE; Start 07/24/16 at 16:00 Dextrose (D50w Syringe) 50 ml Q15M PRN IV DECREASED GLUCOSE; Start 07/24/16 at 16:00 Glucagon (Glucagen) 1 mg Q15M PRN IM DECREASED GLUCOSE; Start 07/24/16 at 16:00 Glucose (Glutose) 15 gm Q15M PRN BUCCAL DECREASED GLUCOSE; Start 07/24/16 at 16 :00 Ondansetron HCl (Zofran Inj) 4 mg Q4 PRN IV nausea Last administered on 08:27; Admin Dose 4 MG; Start 07/24/16 at 17:00 Hydromorphone HCl (Dilaudid) 1 mg Q4 PRN IV pain Last administered on 08:25; Admin Dose 1 MG; Start 07/24/16 at 17:00 Metoclopramide HCl 5 mg 5 mg Q4H PRN IV NAUSEA Last administered on 07/25/16 11:53; Admin Dose 5 MG; Start 07/24/16 at 22:30 Ferric Sodium Gluconate Complex/ Sodium Chloride (Ferrlecit/NS) 110 ml @ 110 mls/hr Q24H IVPB Last administered on 07/25/16 16:11; Admin Dose 110 MLS/HR; Start 07/25/16 at 16:00; Stop 07/29/16 at 16:59 Enalaprilat (Vasotec Iv) 1.25 mg Q2H PRN IV ELEVATED SYSTOLIC BP Last administered on 07/26/16t 06:58; Admin Dose 1.25 MG; Start 07/25/16 at 18:30 PATRICIA RUEDA Jul 26, 2016 10:06
--- NOTE | 2016-07-26 10:34 | CONS ---
Date/Time of Note Date/Time of Note DATE: 07/26/16 TIME: 10:32 Assessment/Plan Assessment/Plan Chief Complaint/Hosp Course 1. S/p right VATS procedure with pleurodesis with consequent pleural effusion. 2. End-stage renal disease on hemodialysis. 3. History of diabetes. 4. History of hypertension. 5. History of cardiac arrhythmia, status post pacemaker. 6. History of coronary artery bypass surgery. 7. Cardiomyopathy Problems: Additional Assessment/Plan 1. Continue HD Consultation Date/Type/Reason Admit Date/Time Jul 24, 2016 at 12:53 Initial Consult Date 07/25/16 Type of Consultation: nephrology Reason for Consultation Dr Saunders Referring Provider: EVA COX MD 24 HR Interval Summary Subjective hx not possible: pt critical status Constitutional: other (nausea), poor po, requiring IVF, requiring O2 Exam/Review of Systems Vital Signs Vitals Vital Signs Date Time Temp Pulse Resp B/P Pulse Ox O2 Delivery O2 Flow Rate FiO2 07/26/16 09:00 70 18 179/71 100 Nasal Cannula 2.0 07/26/16 08:00 98.9 07/25/16 01:55 27 Intake and Output 07/25/16 07/25/16 07/26/16 15:00 23:00 07:00 Intake Total 3110 ml 730 ml Output Total 3500 ml 2000 ml 350 ml Balance -390 ml -1270 ml -350 ml Exam Constitutional: alert, oriented Psych: no complaints Head: normocephalic Eyes: nl conjunctiva ENMT: nl external ears & nose Neck: supple Respiratory: diminished breath sounds Cardiovascular: regular rate and rhythm Gastrointestinal: tender Genitourinary - Male: nl penis Extremities: normal pulses Results Result Diagram: 07/26/16 0430 07/26/16 0430 Results 24 hrs Laboratory Tests Test 07/25/16 11:55 07/25/16 18:20 07/25/16 20:42 07/26/16 04:30 Bedside Glucose 119 144 133 White Blood Count 10.5 # Red Blood Count 2.98 #L Hemoglobin 9.3 #L Hematocrit 26.3 #L Mean Corpuscular Volume 88.3 Mean Corpuscular Hemoglobin 31.2 Mean Corpuscular Hemoglobin Concent 35.4 Red Cell Distribution Width 14.7 H Platelet Count 118 #L Mean Platelet Volume 9.9 Neutrophils % 74.5 Lymphocytes % 11.1 L Monocytes % 12.2 H Eosinophils % 1.1 Basophils % 0.6 Nucleated Red Blood Cells % 0.2 H Neutrophils # 7.8 H Lymphocytes # 1.2 Monocytes # 1.3 H Eosinophils # 0.1 Basophils # 0.1 Nucleated Red Blood Cells # 0.0 Absolute Reticulocyte Count 0.023 Percent Reticulocyte Count 0.8 Sodium Level 137 Potassium Level 3.6 # Chloride Level 95 L Carbon Dioxide Level 29 Anion Gap 17 H Blood Urea Nitrogen 47 #H Creatinine 5.87 #H Glucose Level 156 Calcium Level 8.4 Iron Level 127 Total Iron Binding Capacity 184 L Percent Iron Saturation 69 H Ferritin 2010.0 H Lactate Dehydrogenase 612 Vitamin B12 Level > 1000 H Folate 4.2 Test 07/26/16 08:31 Bedside Glucose 122 Medications Medications Current Medications Pantoprazole (Protonix Iv) 40 mg DAILY IV Last administered on 07/26/16 08:37 ; Admin Dose 40 MG; Start 07/24/16 at 15:30 Aspirin (Halfprin) 81 mg DAILY PO Last administered on 07/26/16 08:39; Admin Dose 81 MG; Start 07/25/16 at 09:00 Atorvastatin Calcium (Lipitor) 10 mg QHS PO Last administered on 07/25/16 20: 46; Admin Dose 10 MG; Start 07/24/16 at 21:00 Benazepril HCl (Lotensin) 40 mg BID PO Last administered on 07/26/16 08:38; Admin Dose 40 MG; Start 07/24/16 at 21:00 Cholecalciferol (Vitamin D) 400 units DAILY PO Last administered on 07/25/16 08:25; Admin Dose 400 UNITS; Start 07/25/16 at 09:00 Famotidine (Pepcid) 20 mg DAILY PO Last administered on 07/26/16 08:38; Admin Dose 20 MG; Start 07/25/16 at 09:00 Ferrous Sulfate (Ferrous Sulfate (Ec)) 325 mg BID PO Last administered on 20:45; Admin Dose 325 MG; Start 07/24/16 at 21:00 Acetaminophen/ Hydrocodone Bitart ([place] (5/325)) 1 tab Q4H PRN PO PAIN; Start 07/24/16 at 17:00 Insulin Glargine (Lantus) 6 unit DAILY@20 SC Last administered on 07/25/16 20: 54; Admin Dose 6 UNIT; Start 07/24/16 at 20:00 Isoniazid (Isoniazid) 300 mg DAILY PO Last administered on 07/26/16 08:40; Admin Dose 300 MG; Start 07/24/16 at 15:30 Metoprolol Tartrate (Lopressor) 75 mg BID PO Last administered on 07/26/16 08: 37; Admin Dose 75 MG; Start 07/24/16 at 21:00 Nifedipine (Procardia Xl) 60 mg BID PO Last administered on 07/26/16 08:38; Admin Dose 60 MG; Start 07/24/16 at 21:00 Pyridoxine HCl (Vitamin B6) 50 mg DAILY PO Last administered on 07/25/16 08:27 ; Admin Dose 50 MG; Start 07/25/16 at 09:00 Rifampin (Rifampin) 600 mg DAILY PO Last administered on 07/26/16 08:39; Admin Dose 600 MG; Start 07/25/16 at 09:00 Pyrazinamide (Pyrazinamide) 1,500 mg TuThSa@20 PO ; Start 07/24/16 at 20:00 Ethambutol HCl (Myambutol) 1,200 mg TuThSa@20 PO ; Start 07/24/16 at 20:00 Miscellaneous Information 1 ea NOTE XX ; Start 07/24/16 at 16:00 Glucose (Glutose) 15 gm Q15M PRN PO DECREASED GLUCOSE; Start 07/24/16 at 16:00 Glucose (Glutose) 22.5 gm Q15M PRN PO DECREASED GLUCOSE; Start 07/24/16 at 16: 00 Dextrose (D50w Syringe) 25 ml Q15M PRN IV DECREASED GLUCOSE; Start 07/24/16 at 16:00 Dextrose (D50w Syringe) 50 ml Q15M PRN IV DECREASED GLUCOSE; Start 07/24/16 at 16:00 Glucagon (Glucagen) 1 mg Q15M PRN IM DECREASED GLUCOSE; Start 07/24/16 at 16:00 Glucose (Glutose) 15 gm Q15M PRN BUCCAL DECREASED GLUCOSE; Start 07/24/16 at 16 :00 Ondansetron HCl (Zofran Inj) 4 mg Q4 PRN IV nausea Last administered on 08:27; Admin Dose 4 MG; Start 07/24/16 at 17:00 Hydromorphone HCl (Dilaudid) 1 mg Q4 PRN IV pain Last administered on 08:25; Admin Dose 1 MG; Start 07/24/16 at 17:00 Metoclopramide HCl 5 mg 5 mg Q4H PRN IV NAUSEA Last administered on 07/26/16 10:05; Admin Dose 5 MG; Start 07/24/16 at 22:30 Ferric Sodium Gluconate Complex/ Sodium Chloride (Ferrlecit/NS) 110 ml @ 110 mls/hr Q24H IVPB Last administered on 07/25/16 16:11; Admin Dose 110 MLS/HR; Start 07/25/16 at 16:00; Stop 07/29/16 at 16:59 Enalaprilat (Vasotec Iv) 1.25 mg Q2H PRN IV ELEVATED SYSTOLIC BP Last administered on 07/26/16 06:58; Admin Dose 1.25 MG; Start 07/25/16 at 18:30 TERRIE YOST 25, 2017 10:33
[2016-07-26] MEDS ORDERED: DEXTROSE 5%-0.45% NACL 1,000 ML IV SCH (11:00)
--- NOTE | 2016-07-26 11:45 | PN ---
Date/Time of Note Date/Time of Note DATE: 07/26/16 TIME: 11:43 Assessment/Plan VTE Prophylaxis VTE Prophylaxis Intervention: ambulation Lines/Catheters IV Catheter Type (from Nrsg): Central Line Central line still needed: Yes Urinary Cath still in place: No Assessment/Plan Assessment/Plan 60 year old male with ESRD, DM, HTN, CAD, with hemoptysis, right former chest tube site bleeding, resolved, with anemia of acute blood loss with bleeding from the right femoral catheter as well as chest tube site on admission. - s/p blood transfusion with dialysis for Hgb 6.8. Continue to monitor H/H and transfuse if hemoglobin < 8. now 9-10 - Agree with holding antiplatelets until deemed safe to resume and once hgb stable - s/p IV iron given likely iron deficiency anemia due to blood loss, though adequate iron panel, ferritin, B12/folate, with normal retic, LDH, suggesting no signs of hemolysis and epo level (to see if would benefit from procrit given ESRD) is still pending. Subjective 24 Hr Interval Summary Constitutional: no complaints Respiratory: cough Exam/Review of Systems Vital Signs Vitals Vital Signs Date Time Temp Pulse Resp B/P Pulse Ox O2 Delivery O2 Flow Rate FiO2 07/26/16 09:00 70 18 179/71 100 Nasal Cannula 2.0 07/26/16 08:00 98.9 07/25/16 01:55 27 Intake and Output 07/25/16 07/25/16 07/26/16 15:00 23:00 07:00 Intake Total 3110 ml 730 ml Output Total 3500 ml 2000 ml 350 ml Balance -390 ml -1270 ml -350 ml Exam Constitutional: alert, oriented Psych: no complaints Eyes: nl conjunctiva Neck: supple Respiratory: normal air movement Gastrointestinal: soft Results Result Diagram: 07/26/16 0430 07/26/16 0430 Results 24 hrs Laboratory Tests Test 07/25/16 11:55 07/25/16 18:20 07/25/16 20:42 07/26/16 04:30 Bedside Glucose 119 144 133 White Blood Count 10.5 # Red Blood Count 2.98 #L Hemoglobin 9.3 #L Hematocrit 26.3 #L Mean Corpuscular Volume 88.3 Mean Corpuscular Hemoglobin 31.2 Mean Corpuscular Hemoglobin Concent 35.4 Red Cell Distribution Width 14.7 H Platelet Count 118 #L Mean Platelet Volume 9.9 Neutrophils % 74.5 Lymphocytes % 11.1 L Monocytes % 12.2 H Eosinophils % 1.1 Basophils % 0.6 Nucleated Red Blood Cells % 0.2 H Neutrophils # 7.8 H Lymphocytes # 1.2 Monocytes # 1.3 H Eosinophils # 0.1 Basophils # 0.1 Nucleated Red Blood Cells # 0.0 Absolute Reticulocyte Count 0.023 Percent Reticulocyte Count 0.8 Sodium Level 137 Potassium Level 3.6 # Chloride Level 95 L Carbon Dioxide Level 29 Anion Gap 17 H Blood Urea Nitrogen 47 #H Creatinine 5.87 #H Glucose Level 156 Calcium Level 8.4 Iron Level 127 Total Iron Binding Capacity 184 L Percent Iron Saturation 69 H Ferritin 2010.0 H Lactate Dehydrogenase 612 Vitamin B12 Level > 1000 H Folate 4.2 Test 07/26/16 08:31 Bedside Glucose 122 Medications Medications Current Medications Pantoprazole (Protonix Iv) 40 mg DAILY IV Last administered on 07/26/16 08:37 ; Admin Dose 40 MG; Start 07/24/16 at 15:30 Aspirin (Halfprin) 81 mg DAILY PO Last administered on 07/26/16 08:39; Admin Dose 81 MG; Start 07/25/16 at 09:00 Atorvastatin Calcium (Lipitor) 10 mg QHS PO Last administered on 07/25/16 20: 46; Admin Dose 10 MG; Start 07/24/16 at 21:00 Benazepril HCl (Lotensin) 40 mg BID PO Last administered on 07/26/16 08:38; Admin Dose 40 MG; Start 07/24/16 at 21:00 Cholecalciferol (Vitamin D) 400 units DAILY PO Last administered on 07/25/16 08:25; Admin Dose 400 UNITS; Start 07/25/16 at 09:00 Famotidine (Pepcid) 20 mg DAILY PO Last administered on 07/26/16 08:38; Admin Dose 20 MG; Start 07/25/16 at 09:00 Ferrous Sulfate (Ferrous Sulfate (Ec)) 325 mg BID PO Last administered on 20:45; Admin Dose 325 MG; Start 07/24/16 at 21:00 Acetaminophen/ Hydrocodone Bitart ([place] (5/325)) 1 tab Q4H PRN PO PAIN; Start 07/24/16 at 17:00 Insulin Glargine (Lantus) 6 unit DAILY@20 SC Last administered on 07/25/16 20: 54; Admin Dose 6 UNIT; Start 07/24/16 at 20:00 Isoniazid (Isoniazid) 300 mg DAILY PO Last administered on 07/26/16 08:40; Admin Dose 300 MG; Start 07/24/16 at 15:30 Metoprolol Tartrate (Lopressor) 75 mg BID PO Last administered on 07/26/16 08: 37; Admin Dose 75 MG; Start 07/24/16 at 21:00 Nifedipine (Procardia Xl) 60 mg BID PO Last administered on 07/26/16 08:38; Admin Dose 60 MG; Start 07/24/16 at 21:00 Pyridoxine HCl (Vitamin B6) 50 mg DAILY PO Last administered on 07/25/16 08:27 ; Admin Dose 50 MG; Start 07/25/16 at 09:00 Rifampin (Rifampin) 600 mg DAILY PO Last administered on 07/26/16 08:39; Admin Dose 600 MG; Start 07/25/16 at 09:00 Pyrazinamide (Pyrazinamide) 1,500 mg TuThSa@20 PO ; Start 07/24/16 at 20:00 Ethambutol HCl (Myambutol) 1,200 mg TuThSa@20 PO ; Start 07/24/16 at 20:00 Miscellaneous Information 1 ea NOTE XX ; Start 07/24/16 at 16:00 Glucose (Glutose) 15 gm Q15M PRN PO DECREASED GLUCOSE; Start 07/24/16 at 16:00 Glucose (Glutose) 22.5 gm Q15M PRN PO DECREASED GLUCOSE; Start 07/24/16 at 16: 00 Dextrose (D50w Syringe) 25 ml Q15M PRN IV DECREASED GLUCOSE; Start 07/24/16 at 16:00 Dextrose (D50w Syringe) 50 ml Q15M PRN IV DECREASED GLUCOSE; Start 07/24/16 at 16:00 Glucagon (Glucagen) 1 mg Q15M PRN IM DECREASED GLUCOSE; Start 07/24/16 at 16:00 Glucose (Glutose) 15 gm Q15M PRN BUCCAL DECREASED GLUCOSE; Start 07/24/16 at 16 :00 Ondansetron HCl (Zofran Inj) 4 mg Q4 PRN IV nausea Last administered on 08:27; Admin Dose 4 MG; Start 07/24/16 at 17:00 Hydromorphone HCl (Dilaudid) 1 mg Q4 PRN IV pain Last administered on 08:25; Admin Dose 1 MG; Start 07/24/16 at 17:00 Metoclopramide HCl 5 mg 5 mg Q4H PRN IV NAUSEA Last administered on 07/26/16 10:05; Admin Dose 5 MG; Start 07/24/16 at 22:30 Ferric Sodium Gluconate Complex/ Sodium Chloride (Ferrlecit/NS) 110 ml @ 110 mls/hr Q24H IVPB Last administered on 07/25/16 16:11; Admin Dose 110 MLS/HR; Start 07/25/16 at 16:00; Stop 07/29/16 at 16:59 Enalaprilat (Vasotec Iv) 1.25 mg Q2H PRN IV ELEVATED SYSTOLIC BP Last administered on 07/26/16 06:58; Admin Dose 1.25 MG; Start 07/25/16 at 18:30 Insulin Aspart NOVOLOG *MILD* ALGORITHM Q4 SC ; Start 07/26/16 at 12:00 Dextrose/Sodium Chloride (D5-1/2ns) 1,000 ml @ 40 mls/hr Q24H IV Last administered on 07/26/16 11:00; Admin Dose 40 MLS/HR; Start 07/26/16 at 11:00 PETE LAST MD Jul 26, 2016 11:45
[2016-07-26] MEDS ORDERED: INSULIN ASPART [NOVOLOG] 3 ML PEN SC SCH ×2 (11:49→12:00)
--- NOTE | 2016-07-26 11:53 | PN ---
Date/Time of Note Date/Time of Note DATE: 07/26/16 TIME: 11:52 Assessment/Plan VTE Prophylaxis VTE Prophylaxis Intervention: other Lines/Catheters IV [facility] Type [facility]from [facility] Urinary Cath still in place: No Assessment/Plan Chief Complaint/Hosp Course IMPRESSION: Right chest tube site bleeding, which has now subsided completely. Hgb up to 9.3 Would monitor the hemoglobin levels and stop the antiplatelet. Discussed with the referring physicians. plan for VATS after the pt has been off of plavix for 5 days Problems: Subjective 24 Hr Interval Summary Gastrointestinal: no complaints Genitourinary: no complaints Musculoskeletal: no complaints Skin: no complaints Neurologic: no complaints Exam/Review of Systems Vital Signs Vitals Vital Signs Date Time Temp Pulse Resp B/P Pulse Ox O2 Delivery O2 Flow Rate FiO2 07/26/16 09:00 70 18 179/71 100 Nasal Cannula 2.0 07/26/16 08:00 98.9 07/25/16 01:55 27 Intake and Output 07/25/16 07/25/16 07/26/16 15:00 23:00 07:00 Intake Total 3110 ml 730 ml Output Total 3500 ml 2000 ml 350 ml Balance -390 ml -1270 ml -350 ml Exam ENMT: nl external ears & nose, nl lips & teeth, nl nasal mucosa & septum Neck: non-tender, supple Respiratory: clear to auscultation, normal air movement Cardiovascular: nl pulses, regular rate and rhythm Results Result Diagram: 07/26/16 0430 07/26/16 0430 Results 24 hrs Laboratory Tests Test 07/25/16 11:55 07/25/16 18:20 07/25/16 20:42 07/26/16 04:30 Bedside Glucose 119 144 133 White Blood Count 10.5 # Red Blood Count 2.98 #L Hemoglobin 9.3 #L Hematocrit 26.3 #L Mean Corpuscular Volume 88.3 Mean Corpuscular Hemoglobin 31.2 Mean Corpuscular Hemoglobin Concent 35.4 Red Cell Distribution Width 14.7 H Platelet Count 118 #L Mean Platelet Volume 9.9 Neutrophils % 74.5 Lymphocytes % 11.1 L Monocytes % 12.2 H Eosinophils % 1.1 Basophils % 0.6 Nucleated Red Blood Cells % 0.2 H Neutrophils # 7.8 H Lymphocytes # 1.2 Monocytes # 1.3 H Eosinophils # 0.1 Basophils # 0.1 Nucleated Red Blood Cells # 0.0 Absolute Reticulocyte Count 0.023 Percent Reticulocyte Count 0.8 Sodium Level 137 Potassium Level 3.6 # Chloride Level 95 L Carbon Dioxide Level 29 Anion Gap 17 H Blood Urea Nitrogen 47 #H Creatinine 5.87 #H Glucose Level 156 Calcium Level 8.4 Iron Level 127 Total Iron Binding Capacity 184 L Percent Iron Saturation 69 H Ferritin 2010.0 H Lactate Dehydrogenase 612 Vitamin B12 Level > 1000 H Folate 4.2 Test 07/26/16 08:31 07/26/16 11:47 Bedside Glucose 122 148 Medications Medications Current Medications Pantoprazole (Protonix Iv) 40 mg DAILY IV Last administered on 07/26/16 08:37 ; Admin Dose 40 MG; Start 07/24/16 at 15:30 Aspirin (Halfprin) 81 mg DAILY PO Last administered on 07/26/16 08:39; Admin Dose 81 MG; Start 07/25/16 at 09:00 Atorvastatin Calcium (Lipitor) 10 mg QHS PO Last administered on 07/25/16 20: 46; Admin Dose 10 MG; Start 07/24/16 at 21:00 Benazepril HCl (Lotensin) 40 mg BID PO Last administered on 07/26/16 08:38; Admin Dose 40 MG; Start 07/24/16 at 21:00 Cholecalciferol (Vitamin D) 400 units DAILY PO Last administered on 07/25/16 08:25; Admin Dose 400 UNITS; Start 07/25/16 at 09:00 Famotidine (Pepcid) 20 mg DAILY PO Last administered on 07/26/16 08:38; Admin Dose 20 MG; Start 07/25/16 at 09:00 Ferrous Sulfate (Ferrous Sulfate (Ec)) 325 mg BID PO Last administered on 20:45; Admin Dose 325 MG; Start 07/24/16 at 21:00 Acetaminophen/ Hydrocodone Bitart ([place] (5/325)) 1 tab Q4H PRN PO PAIN; Start 07/24/16 at 17:00 Insulin Glargine (Lantus) 6 unit DAILY@20 SC Last administered on 07/25/16 20: 54; Admin Dose 6 UNIT; Start 07/24/16 at 20:00 Isoniazid (Isoniazid) 300 mg DAILY PO Last administered on 07/26/16 08:40; Admin Dose 300 MG; Start 07/24/16 at 15:30 Metoprolol Tartrate (Lopressor) 75 mg BID PO Last administered on 07/26/16 08: 37; Admin Dose 75 MG; Start 07/24/16 at 21:00 Nifedipine (Procardia Xl) 60 mg BID PO Last administered on 07/26/16 08:38; Admin Dose 60 MG; Start 07/24/16 at 21:00 Pyridoxine HCl (Vitamin B6) 50 mg DAILY PO Last administered on 07/25/16 08:27 ; Admin Dose 50 MG; Start 07/25/16 at 09:00 Rifampin (Rifampin) 600 mg DAILY PO Last administered on 07/26/16 08:39; Admin Dose 600 MG; Start 07/25/16 at 09:00 Pyrazinamide (Pyrazinamide) 1,500 mg TuThSa@20 PO ; Start 07/24/16 at 20:00 Ethambutol HCl (Myambutol) 1,200 mg TuThSa@20 PO ; Start 07/24/16 at 20:00 Miscellaneous Information 1 ea NOTE XX ; Start 07/24/16 at 16:00 Glucose (Glutose) 15 gm Q15M PRN PO DECREASED GLUCOSE; Start 07/24/16 at 16:00 Glucose (Glutose) 22.5 gm Q15M PRN PO DECREASED GLUCOSE; Start 07/24/16 at 16: 00 Dextrose (D50w Syringe) 25 ml Q15M PRN IV DECREASED GLUCOSE; Start 07/24/16 at 16:00 Dextrose (D50w Syringe) 50 ml Q15M PRN IV DECREASED GLUCOSE; Start 07/24/16 at 16:00 Glucagon (Glucagen) 1 mg Q15M PRN IM DECREASED GLUCOSE; Start 07/24/16 at 16:00 Glucose (Glutose) 15 gm Q15M PRN BUCCAL DECREASED GLUCOSE; Start 07/24/16 at 16 :00 Ondansetron HCl (Zofran Inj) 4 mg Q4 PRN IV nausea Last administered on 08:27; Admin Dose 4 MG; Start 07/24/16 at 17:00 Hydromorphone HCl (Dilaudid) 1 mg Q4 PRN IV pain Last administered on 08:25; Admin Dose 1 MG; Start 07/24/16 at 17:00 Metoclopramide HCl 5 mg 5 mg Q4H PRN IV NAUSEA Last administered on 07/26/16 10:05; Admin Dose 5 MG; Start 07/24/16 at 22:30 Ferric Sodium Gluconate Complex/ Sodium Chloride (Ferrlecit/NS) 110 ml @ 110 mls/hr Q24H IVPB Last administered on 07/25/16 16:11; Admin Dose 110 MLS/HR; Start 07/25/16 at 16:00; Stop 07/29/16 at 16:59 Enalaprilat (Vasotec Iv) 1.25 mg Q2H PRN IV ELEVATED SYSTOLIC BP Last administered on 07/26/16 06:58; Admin Dose 1.25 MG; Start 07/25/16 at 18:30 Insulin Aspart NOVOLOG *MILD* ALGORITHM Q4 SC ; Start 07/26/16 at 12:00 Dextrose/Sodium Chloride (D5-1/2ns) 1,000 ml @ 40 mls/hr Q24H IV Last administered on 07/26/16 11:00; Admin Dose 40 MLS/HR; Start 07/26/16 at 11:00 LILIA FELIZ MD Jul 26, 2016 11:53
--- NOTE | 2016-07-26 12:31 | CONS ---
Date/Time of Note Date/Time of Note DATE: 07/26/16 TIME: 12:29 Assessment/Plan Assessment/Plan Additional Assessment/Plan Assessment recommendations; 1. Patient admitted for mild colopathy with interval improvement. 2. Anemia, status post lateral fusion. 3. Status post recent VATS procedure with the recommendation of pleural fluid patient likely would need to have a redo procedure performed. Once his coagulopathy has improved. 4. End-stage renal disease on hemodialysis. 5. History of prior coronary artery disease status post bypass surgery. 6. History of hypertension diabetes. 7. Currently no evidence of any infective process. Continue current treatment. Patient will be scheduled for VATS procedure on the right side. He can be transferred out to telemetry unit. Consultation Date/Type/Reason Admit Date/Time Jul 24, 2016 at 12:53 Initial Consult Date 07/25/16 Type of Consultation: Pulmonary/critical care Reason for Consultation Patient condition stable. No further bleeding noted either from the central line or any further hemoptysis. Patient has remained hemodynamically stable. Denies any chest pain, shortness of breath, fever chills. Denies any nausea vomiting. General exam; elderly male, currently in no distress. Awake and alert. Referring Provider: EVA COX MD Exam/Review of Systems Vital Signs Vitals Vital Signs Date Time Temp Pulse Resp B/P Pulse Ox O2 Delivery O2 Flow Rate FiO2 07/26/16 12:00 70 07/26/16 09:00 18 179/71 100 Nasal Cannula 2.0 07/26/16 08:00 98.9 07/25/16 01:55 27 Intake and Output 07/25/16 07/25/16 07/26/16 15:00 23:00 07:00 Intake Total 3110 ml 730 ml Output Total 3500 ml 2000 ml 350 ml Balance -390 ml -1270 ml -350 ml Exam HEENT exam is; supple neck, positive JVD. No lymphadenopathy. Midline trachea. No thyromegaly. Patient has fair dentition. Pupils are small bilaterally. No neck masses. Chest examination; diminished breath sounds right lower lobe. Rest of the lung evans are clear. S1-S2 audible, no murmurs. Regular rhythm. There is a well- healed sternal scar. Abdomen examination; soft, nontender. No organomegaly. Bowel sounds audible. Extremity examination; no peripheral edema. Pulses 1+ bilaterally. There is no clubbing. FILLER FEEDER examination; no focal deficit. Results Result Diagram: 07/26/16 0430 07/26/16 0430 Results 24 hrs Laboratory Tests Test 07/25/16 18:20 07/25/16 20:42 07/26/16 04:30 07/26/16 08:31 Bedside Glucose 144 133 122 White Blood Count 10.5 # Red Blood Count 2.98 #L Hemoglobin 9.3 #L Hematocrit 26.3 #L Mean Corpuscular Volume 88.3 Mean Corpuscular Hemoglobin 31.2 Mean Corpuscular Hemoglobin Concent 35.4 Red Cell Distribution Width 14.7 H Platelet Count 118 #L Mean Platelet Volume 9.9 Neutrophils % 74.5 Lymphocytes % 11.1 L Monocytes % 12.2 H Eosinophils % 1.1 Basophils % 0.6 Nucleated Red Blood Cells % 0.2 H Neutrophils # 7.8 H Lymphocytes # 1.2 Monocytes # 1.3 H Eosinophils # 0.1 Basophils # 0.1 Nucleated Red Blood Cells # 0.0 Absolute Reticulocyte Count 0.023 Percent Reticulocyte Count 0.8 Sodium Level 137 Potassium Level 3.6 # Chloride Level 95 L Carbon Dioxide Level 29 Anion Gap 17 H Blood Urea Nitrogen 47 #H Creatinine 5.87 #H Glucose Level 156 Calcium Level 8.4 Iron Level 127 Total Iron Binding Capacity 184 L Percent Iron Saturation 69 H Ferritin 2010.0 H Lactate Dehydrogenase 612 Vitamin B12 Level > 1000 H Folate 4.2 Test 07/26/16 11:47 Bedside Glucose 148 Medications Medications Current Medications Pantoprazole (Protonix Iv) 40 mg DAILY IV Last administered on 07/26/16 08:37 ; Admin Dose 40 MG; Start 07/24/16 at 15:30 Aspirin (Halfprin) 81 mg DAILY PO Last administered on 07/26/16 08:39; Admin Dose 81 MG; Start 07/25/16 at 09:00 Atorvastatin Calcium (Lipitor) 10 mg QHS PO Last administered on 07/25/16 20: 46; Admin Dose 10 MG; Start 07/24/16 at 21:00 Benazepril HCl (Lotensin) 40 mg BID PO Last administered on 07/26/16 08:38; Admin Dose 40 MG; Start 07/24/16 at 21:00 Cholecalciferol (Vitamin D) 400 units DAILY PO Last administered on 07/25/16 08:25; Admin Dose 400 UNITS; Start 07/25/16 at 09:00 Famotidine (Pepcid) 20 mg DAILY PO Last administered on 07/26/16 08:38; Admin Dose 20 MG; Start 07/25/16 at 09:00 Ferrous Sulfate (Ferrous Sulfate (Ec)) 325 mg BID PO Last administered on 20:45; Admin Dose 325 MG; Start 07/24/16 at 21:00 Acetaminophen/ Hydrocodone Bitart ([place] (5/325)) 1 tab Q4H PRN PO PAIN; Start 07/24/16 at 17:00 Insulin Glargine (Lantus) 6 unit DAILY@20 SC Last administered on 07/25/16 20: 54; Admin Dose 6 UNIT; Start 07/24/16 at 20:00 Isoniazid (Isoniazid) 300 mg DAILY PO Last administered on 07/26/16 08:40; Admin Dose 300 MG; Start 07/24/16 at 15:30 Metoprolol Tartrate (Lopressor) 75 mg BID PO Last administered on 07/26/16 08: 37; Admin Dose 75 MG; Start 07/24/16 at 21:00 Nifedipine (Procardia Xl) 60 mg BID PO Last administered on 07/26/16 08:38; Admin Dose 60 MG; Start 07/24/16 at 21:00 Pyridoxine HCl (Vitamin B6) 50 mg DAILY PO Last administered on 07/25/16 08:27 ; Admin Dose 50 MG; Start 07/25/16 at 09:00 Rifampin (Rifampin) 600 mg DAILY PO Last administered on 07/26/16 08:39; Admin Dose 600 MG; Start 07/25/16 at 09:00 Pyrazinamide (Pyrazinamide) 1,500 mg TuThSa@20 PO ; Start 07/24/16 at 20:00 Ethambutol HCl (Myambutol) 1,200 mg TuThSa@20 PO ; Start 07/24/16 at 20:00 Miscellaneous Information 1 ea NOTE XX ; Start 07/24/16 at 16:00 Glucose (Glutose) 15 gm Q15M PRN PO DECREASED GLUCOSE; Start 07/24/16 at 16:00 Glucose (Glutose) 22.5 gm Q15M PRN PO DECREASED GLUCOSE; Start 07/24/16 at 16: 00 Dextrose (D50w Syringe) 25 ml Q15M PRN IV DECREASED GLUCOSE; Start 07/24/16 at 16:00 Dextrose (D50w Syringe) 50 ml Q15M PRN IV DECREASED GLUCOSE; Start 07/24/16 at 16:00 Glucagon (Glucagen) 1 mg Q15M PRN IM DECREASED GLUCOSE; Start 07/24/16 at 16:00 Glucose (Glutose) 15 gm Q15M PRN BUCCAL DECREASED GLUCOSE; Start 07/24/16 at 16 :00 Ondansetron HCl (Zofran Inj) 4 mg Q4 PRN IV nausea Last administered on 08:27; Admin Dose 4 MG; Start 07/24/16 at 17:00 Hydromorphone HCl (Dilaudid) 1 mg Q4 PRN IV pain Last administered on 08:25; Admin Dose 1 MG; Start 07/24/16 at 17:00 Metoclopramide HCl 5 mg 5 mg Q4H PRN IV NAUSEA Last administered on 07/26/16 10:05; Admin Dose 5 MG; Start 07/24/16 at 22:30 Ferric Sodium Gluconate Complex/ Sodium Chloride (Ferrlecit/NS) 110 ml @ 110 mls/hr Q24H IVPB Last administered on 07/25/16 16:11; Admin Dose 110 MLS/HR; Start 07/25/16 at 16:00; Stop 07/29/16 at 16:59 Enalaprilat (Vasotec Iv) 1.25 mg Q2H PRN IV ELEVATED SYSTOLIC BP Last administered on 07/26/16 06:58; Admin Dose 1.25 MG; Start 07/25/16 at 18:30 Diagnostic Test (Pha) (Accu-Chek) 1 ea 02 XX ; Start 07/26/16 at 12:00 BOONE POLO Jul 26, 2016 12:31
[2016-07-26] MEDS ORDERED: CLONIDINE 0.1 MG/24 HR PATCH TRANSDERM SCH (13:00)
--- NOTE | 2016-07-26 13:28 | RADRPT ---
Vent Rate: 71 bpm RR Interval: 0 msec IN Interval: 168 msec QRS Duration: 86 msec QT Interval: 424 msec QTC Interval: 460 msec P-R-T [place]: 71 - 5 - 88 degrees Normal sinus rhythm Prolonged QT Abnormal ECG Nonspecific ST-T changes possible lateral ischemia No previous tracing available for comparison Electronically Signed By: Osito Hayward [id number]
[2016-07-26] MEDS: METOPROLOL 100 MG TAB GTB SCH ×2 (14:03→20:27)
--- NOTE | 2016-07-26 14:20 | PN ---
DATE: 07/26/2016 On questioning, the patient has not complained of chest pain or shortness of breath, and is feeling okay. OBJECTIVE: VITAL SIGNS: On examination, blood pressure is 179/71. Blood pressure has been as high as 215/83. He is afebrile. HEAD: Examination is normocephalic. Face, no xanthelasma, no facial droop. NECK: JVP not traced. Carotid pulses reveal normal upstrokes. CHEST: Bilaterally symmetrical and nontender. HEART: PMI is localized in the fourth intercostal space in the midclavicular line, S1 and S2 are re gular. A I-II/ systolic murmur heard at the apex. No gallop or rub or thrill. LUNGS: Reveals clear evans except for some decreased breath sounds at the right base. ABDOMEN: Soft and nontender belly without any organomegaly. Bowel sounds present. ____. EXTREMITIES: Reveals good femoral and good pedal pulses. No pedal edema, no clubbing, no cyanosis . LABORATORIES: The laboratory tests so far revealed his CT scan of the abdomen and pelvis reveal righ t basilar atelectasis and large pleural effusion with some bibasilar airspace opacities and mild valery sarca. His white count has decreased to 10.5, hemoglobin has increased to 9.3 today and the platelet count is low at 118,000 compared to yesterday. The chemistries today revealed a BUN and creatinine of 47 and 5.87 respectively. Telemetry has been showing sinus rhythm with atrial pacing at times. IMPRESSION: 1. Hypertension. 2. History of coronary angioplasty and stenting ____. 3. History of coronary bypass surgery. 4. Dyslipidemia. 5. Pleural effusion/hemothorax. RECOMMENDATIONS: At this stage from cardiac standpoint include: I would continue with benazepril and will increase the metoprolol from 75 b.i.d. to 100 mg b.i.d. an d continue with nifedipine at 60 mg b.i.d. Dictated By: KARINA ANDINO MD, RA/MANJIT Conf#: [id number] DID#: [id number]
[2016-07-26] MEDS: SOD FERRIC GLUC COMPLX 125 MG in SOD CHLORIDE 0.9% 100 ML IVPB SCH (17:34)
[2016-07-26] MEDS: Insulin NOVOLOG SS MILD Algorithm (SS with meals and bedtime) SC SCH ×2 (17:42→21:00)
[2016-07-26] MEDS: ETHAMBUTOL 400 MG TAB PO SCH (20:25)
[2016-07-26] MEDS: ATORVASTATIN 10 MG TAB PO SCH (20:25)
[2016-07-26] MEDS: PYRAZINAMIDE 500 MG TAB PO SCH (20:27)
[2016-07-26] MEDS: INSULIN GLARGINE [LANtus] 3 ML PEN SC SCH (20:30)
[2016-07-27] VITALS (12 sets, daily range): BP systolic 171–212; BP diastolic 74–95; PULSE 69–70; RESP 18
[2016-07-27] MEDS: ACCUCHECK 2 AM XX SCH (02:00)
[2016-07-27] MEDS: ENALAPRILAT 1.25 MG INJ IV PRN ×3 (06:47→17:57)
--- NOTE | 2016-07-27 06:56 | PN ---
DATE: 07/27/2016 CARDIOLOGY FOLLOWUP SUBJECTIVE: On questioning, the patient has no new complaints today. Telemetry revealing atrial pa lacie rhythm. OBJECTIVE: VITAL SIGNS: Reveal that his blood pressure is still elevated. The last blood pressure was 215/83 as the highest one yesterday and the lowest one 151/64. Heart rate maximum of 76. He is afebrile. NECK: JVP not raised. Carotid pulses with normal upstrokes. CHEST: Bilaterally symmetrical. HEART: S1 and S2 are regular, and a I-II/ systolic murmur is heard over the apex. LUNGS: Decreased breath sounds in the right base. ABDOMEN: Soft, nontender belly. EXTREMITIES: No edema, no clubbing, no cyanosis, and good pedal pulses. LABORATORY DATA: There is no new lab data today. IMPRESSION: 1. History of angioplasty and stenting to the left main and to LAD. 2. History of coronary artery bypass surgery. 3. Abnormal EKG. 4. History of permanent pacemaker. 5. Hypertension which is uncontrolled at this stay. 6. Dyslipidemia. RECOMMENDATIONS: At this stage include I would change the Catapres patch from Catapres 1 to Catapre s 2 and continue other medicines as before. Dictated By: KARINA ANDINO MD, RA/MANJIT Conf#: [id number] DID#: [id number]
[2016-07-27] MEDS: Insulin NOVOLOG SS MILD Algorithm (SS with meals and bedtime) SC SCH ×4 (07:30→21:33)
[2016-07-27] MEDS: CLONIDINE 0.2 MG/24 HR PATCH TRANSDERM SCH (08:27)
[2016-07-27] MEDS: PYRIDOXINE 50 MG TAB PO SCH (08:27)
[2016-07-27] MEDS: CALCIUM ACETATE 667 MG CAP PO SCH ×3 (08:27→17:56)
[2016-07-27] MEDS: PANTOPRAZOLE 40 MG INJ IV SCH (08:27)
[2016-07-27] MEDS: ISONIAZID 300 MG TAB PO SCH (08:27)
[2016-07-27] MEDS: FAMOTIDINE 20 MG TAB PO SCH (08:27)
[2016-07-27] MEDS: FERROUS SULFATE (EC) 325 MG TAB PO SCH ×2 (08:28→21:24)
[2016-07-27] MEDS: CHOLECALCIFEROL 400 UNITS TAB PO SCH (08:28)
[2016-07-27] MEDS: BENAZEPRIL 40 MG TAB PO SCH ×2 (08:28→21:24)
[2016-07-27] MEDS: RIFAMPIN 300 MG CAP PO SCH (08:28)
[2016-07-27] MEDS: SEVELAMER CARBONATE 0.8 GM PKT PO SCH ×3 (08:28→17:56)
[2016-07-27] MEDS: METOPROLOL 100 MG TAB GTB SCH ×2 (08:29→21:23)
[2016-07-27] MEDS: NIFEdipine (XL) 60 MG TAB PO SCH ×2 (08:29→21:24)
[2016-07-27] MEDS: INSULIN ASPART [NOVOLOG] 3 ML PEN SC SCH ×2 (08:43→12:51)
--- NOTE | 2016-07-27 10:01 | PN ---
Date/Time of Note Date/Time of Note DATE: 07/27/16 TIME: 09:58 Assessment/Plan Lines/Catheters IV Catheter Type (from Nrsg): Central Line Jonas in Place (from Nrsg): No Assessment/Plan Chief Complaint/Hosp Course IMPRESSION: Right chest tube site bleeding, which has now subsided completely. Hgb stable Would monitor the hemoglobin levels and stop the antiplatelet. Discussed with the referring physicians. plan for VATS after the pt has been off of plavix for 5 days Problems: Subjective 24 Hr Interval Summary Pain Control: mild Exam/Review of Systems Vital Signs Vitals Vital Signs Date Time Temp Pulse Resp B/P Pulse Ox O2 Delivery O2 Flow Rate FiO2 07/27/16 08:08 69 07/27/16 07:55 98.0 18 195/91 98 07/26/16 20:00 Nasal Cannula 2.0 07/25/16 01:55 27 Intake and Output 07/26/16 07/26/16 07/27/16 15:00 23:00 07:00 Intake Total 380 ml 500 ml 200 ml Output Total 350 ml Balance 30 ml 500 ml 200 ml Exam ENMT: mucosa pink and moist, nl external ears & nose, nl lips & teeth, nl nasal mucosa & septum Neck: non-tender, supple Respiratory: clear to auscultation, normal air movement Cardiovascular: nl pulses, regular rate and rhythm Results Result Diagram: 07/26/1642907/26/16 043 LILIA FELIZ MD Jul 27, 2016 10:01
--- NOTE | 2016-07-27 10:34 | CONS ---
DATE OF ADMISSION: 07/24/2016 DATE OF CONSULTATION: HISTORY OF PRESENT ILLNESS: The patient followed for Dr. Borjas because of history of vomiting. He is out of the ICU now. The patient did not go for thoracentesis which was planned but probably is planned for tomorrow. At present, he has no shortness of breath or chest pain, but he has loss of a ppetite. No vomiting. No history of any hemetemesis, melena, or abdominal pain or fever. The patient is having recurrent attacks of pleural effusion. Apparently he bled after thoracentesis but no history of any GI bleed. He has been ruled out to have any AFB. PHYSICAL EXAMINATION: VITAL SIGNS: Stable. GENERAL: The patient is well-oriented and uncooperative, in no acute distress except for right-side d chest discomfort. CHEST: He has a tube there and had CABG in the past. No other physical ailment. PLAN: Will be to observe, await for thoracentesis tomorrow. If any further GI symptoms, would cons ider further workup. Meanwhile, I encouraged him to eat more and follow up tomorrow by Dr. Borjas. Dictated By: KATELYN ATWOOD/MANJIT Conf#: [id number] DID#: [id number] CC: EVA COX MD; KATELYN JARQUIN M.D.; CLAUDIO BORJAS MD;*EndCC*
[2016-07-27 10:55] LABS: ADD SCAN DIFF NO
[2016-07-27 11:15] LABS: ALBUMIN 3.3 g/dl (3.3-4.9)
[2016-07-27 11:16] LABS: POTASSIUM 4.3 mmol/L (3.5-5.1)
[2016-07-27 11:18] LABS: ALBUMIN/GLOBULIN RATIO 1.1; BILIRUBIN,INDIRECT 0.2 mg/dl (0-1.1); BILIRUBIN,TOTAL 0.2 mg/dl (0.2-1.3); CREATININE 7.17 mg/dl (0.61-1.24); TOTAL PROTEIN 6.3 g/dl (6.1-8.1)
[2016-07-27 11:19] LABS: CALCIUM 8.7 mg/dl (8.4-10.2)
[2016-07-27 11:32] LABS: BASOPHIL # 0.1 10^3/ul (0.0-0.1); BASOPHILS % 0.7 % (0.0-2.0); EOSINOPHILS # 0.2 10^3/ul (0.0-0.5); EOSINOPHILS % 1.6 % (0.0-7.0); HEMATOCRIT 29.6 % (42.0-52.0); HEMOGLOBIN 10.2 g/dl (14.0-18.0); LYMPHOCYTES # 0.7 10^3/ul (0.8-2.9); LYMPHOCYTES % 7.7 % (15.0-51.0); MEAN CORPUSCULAR HEMOGLOBIN 31.2 pg (29.0-33.0); MEAN CORPUSCULAR HGB CONC 34.5 g/dl (32.0-37.0); MEAN CORPUSCULAR VOLUME 90.5 fl (82.0-101.0); MEAN PLATELET VOLUME 9.9 fl (7.4-10.4); MONOCYTE # 0.9 10^3/ul (0.3-0.9); MONOCYTES % 9.4 % (0.0-11.0); NEUTROPHIL # 7.5 10^3/ul (1.6-7.5); NEUTROPHILS % 80.1 % (39.0-77.0); NUCLEATED RED BLOOD CELLS% 0.3 /100WBC (0.0-0.0); PLATELET COUNT 148 10^3/UL (140-415); RED BLOOD COUNT 3.27 10^6/ul (4.70-6.10); WHITE BLOOD COUNT 9.4 10^3/ul (4.8-10.8)
--- NOTE | 2016-07-27 11:56 | PN ---
Date/Time of Note Date/Time of Note DATE: 07/27/16 TIME: 11:55 Assessment/Plan VTE Prophylaxis VTE Prophylaxis Intervention: other Lines/Catheters IV [facility] Type [facility]from [facility] Central Line Urinary Cath still in place: No Assessment/Plan Assessment/Plan -Hemoptysis, Dr. Dale is following in pulmonology consultation. Dr. Tucker is following an infection disease consultation. -Right former chest tube site bleeding, resolved. Dr. Martinez is following in thoracic surgery consultation. -Anemia of acute blood loss, patient had bleeding from the right femoral catheter as well as chest tube site on admission, status post blood transfusion , continue to monitor hemoglobin and hematocrit. Dr. FREDERICK is asked to see patient in hematology consultation. -Recurrent right pleural effusion with consolidation. - Quantiferon Gold positive, prior Hx of TB per department of health, s/p treatment in 1998, continue RIPA. - End-stage renal disease, continue hemodialysis. Dr. Saunders is following in nephrology consultation. - Diabetes mellitus type 2, continue Lantus, pre-meal NovoLog and NovoLog per mild algorithm sliding scale. - Hypertension. Dr. De Santiago is following and cardiology consultation. Continue benazepril metoprolol hydralazine Procardia - Coronary artery disease, status post coronary artery bypass graft, s/p percutaneous transluminal coronary angioplasty and stent placement to left main and left anterior descending in 2014. - Permanent pacemaker. No acute issues. - Dyslipidemia. Continue Lipitor. Further recommendations based on clinical course. Plan of care discussed with Dr. Price. Subjective 24 Hr Interval Summary Eyes: no complaints ENT: no complaints Respiratory: pleuritic pain Cardiovascular: no complaints Gastrointestinal: no complaints Genitourinary: no complaints Musculoskeletal: no complaints Skin: no complaints Exam/Review of Systems Vital Signs Vitals Vital Signs Date Time Temp Pulse Resp B/P Pulse Ox O2 Delivery O2 Flow Rate FiO2 07/27/16 08:08 69 07/27/16 08:00 Nasal Cannula 07/27/16 07:55 98.0 18 195/91 98 07/26/16 20:00 2.0 07/25/16 01:55 27 Intake and Output 07/26/16 07/26/16 07/27/16 15:00 23:00 07:00 Intake Total 380 ml 500 ml 200 ml Output Total 350 ml Balance 30 ml 500 ml 200 ml Exam Constitutional: alert, oriented, well developed Psych: nl mood/affect Head: atraumatic ENMT: nl external ears & nose Neck: non-tender Respiratory: diminished breath sounds Cardiovascular: nl pulses Gastrointestinal: non-tender, soft Musculoskeletal: nl extremities to inspection Extremities: normal pulses Neurological: nl mental status, nl speech Lymph: nontender Results Result Diagram: 07/27/16 1040 07/27/16 1040 Results 24 hrs Laboratory Tests Test 07/26/16 17:00 07/26/16 20:19 07/27/16 08:02 07/27/16 10:40 Bedside Glucose 199 173 101 White Blood Count 9.4 Red Blood Count 3.27 L Hemoglobin 10.2 L Hematocrit 29.6 L Mean Corpuscular Volume 90.5 Mean Corpuscular Hemoglobin 31.2 Mean Corpuscular Hemoglobin Concent 34.5 Red Cell Distribution Width 14.0 Platelet Count 148 # Mean Platelet Volume 9.9 Neutrophils % 80.1 H Lymphocytes % 7.7 L Monocytes % 9.4 Eosinophils % 1.6 Basophils % 0.7 Nucleated Red Blood Cells % 0.3 H Neutrophils # 7.5 Lymphocytes # 0.7 L Monocytes # 0.9 Eosinophils # 0.2 Basophils # 0.1 Nucleated Red Blood Cells # 0.0 Sodium Level 134 L Potassium Level 4.3 Chloride Level 96 L Carbon Dioxide Level 29 Anion Gap 13 Blood Urea Nitrogen 61 H Creatinine 7.17 H Glucose Level 170 Calcium Level 8.7 Total Bilirubin 0.2 Direct Bilirubin 0.00 Indirect Bilirubin 0.2 Aspartate Amino Transf (AST/SGOT) 35 Alanine Aminotransferase (ALT/SGPT) 23 Alkaline Phosphatase 96 Total Protein 6.3 Albumin 3.3 Globulin 3.00 Albumin/Globulin Ratio 1.10 Medications Medications Current Medications Pantoprazole (Protonix Iv) 40 mg DAILY IV Last administered on 07/27/16 08:27 ; Admin Dose 40 MG; Start 07/24/16 at 15:30 Aspirin (Halfprin) 81 mg DAILY PO Last administered on 07/26/16 08:39; Admin Dose 81 MG; Start 07/25/16 at 09:00; Status Future Hold Atorvastatin Calcium (Lipitor) 10 mg QHS PO Last administered on 07/26/16 20: 25; Admin Dose 10 MG; Start 07/24/16 at 21:00 Benazepril HCl (Lotensin) 40 mg BID PO Last administered on 07/27/16 08:28; Admin Dose 40 MG; Start 07/24/16 at 21:00 Cholecalciferol (Vitamin D) 400 units DAILY PO Last administered on 07/27/16 08:28; Admin Dose 400 UNITS; Start 07/25/16 at 09:00 Famotidine (Pepcid) 20 mg DAILY PO Last administered on 07/27/16 08:27; Admin Dose 20 MG; Start 07/25/16 at 09:00 Ferrous Sulfate (Ferrous Sulfate (Ec)) 325 mg BID PO Last administered on 08:28; Admin Dose 325 MG; Start 07/24/16 at 21:00 Acetaminophen/ Hydrocodone Bitart ([place] (5/325)) 1 tab Q4H PRN PO PAIN; Start 07/24/16 at 17:00 Insulin Glargine (Lantus) 6 unit DAILY@20 SC Last administered on 07/26/16 20: 30; Admin Dose 6 UNIT; Start 07/24/16 at 20:00 Isoniazid (Isoniazid) 300 mg DAILY PO Last administered on 07/27/16 08:27; Admin Dose 300 MG; Start 07/24/16 at 15:30 Nifedipine (Procardia Xl) 60 mg BID PO Last administered on 07/27/16 08:29; Admin Dose 60 MG; Start 07/24/16 at 21:00 Pyridoxine HCl (Vitamin B6) 50 mg DAILY PO Last administered on 07/27/16 08:27 ; Admin Dose 50 MG; Start 07/25/16 at 09:00 Rifampin (Rifampin) 600 mg DAILY PO Last administered on 07/27/16 08:28; Admin Dose 600 MG; Start 07/25/16 at 09:00 Pyrazinamide (Pyrazinamide) 1,500 mg TuThSa@20 PO Last administered on 20:27; Admin Dose 1,500 MG; Start 07/24/16 at 20:00 Ethambutol HCl (Myambutol) 1,200 mg TuThSa@20 PO Last administered on 20:25; Admin Dose 1,200 MG; Start 07/24/16 at 20:00 Miscellaneous Information 1 ea NOTE XX ; Start 07/24/16 at 16:00 Glucose (Glutose) 15 gm Q15M PRN PO DECREASED GLUCOSE; Start 07/24/16 at 16:00 Glucose (Glutose) 22.5 gm Q15M PRN PO DECREASED GLUCOSE; Start 07/24/16 at 16: 00 Dextrose (D50w Syringe) 25 ml Q15M PRN IV DECREASED GLUCOSE; Start 07/24/16 at 16:00 Dextrose (D50w Syringe) 50 ml Q15M PRN IV DECREASED GLUCOSE; Start 07/24/16 at 16:00 Glucagon (Glucagen) 1 mg Q15M PRN IM DECREASED GLUCOSE; Start 07/24/16 at 16:00 Glucose (Glutose) 15 gm Q15M PRN BUCCAL DECREASED GLUCOSE; Start 07/24/16 at 16 :00 Ondansetron HCl (Zofran Inj) 4 mg Q4 PRN IV nausea Last administered on 17:58; Admin Dose 4 MG; Start 07/24/16 at 17:00 Hydromorphone HCl (Dilaudid) 1 mg Q4 PRN IV pain Last administered on 12:50; Admin Dose 1 MG; Start 07/24/16 at 17:00 Metoclopramide HCl 5 mg 5 mg Q4H PRN IV NAUSEA Last administered on 07/26/16 10:05; Admin Dose 5 MG; Start 07/24/16 at 22:30 Ferric Sodium Gluconate Complex/ Sodium Chloride (Ferrlecit/NS) 110 ml @ 110 mls/hr Q24H IVPB Last administered on 07/26/16 17:34; Admin Dose 110 MLS/HR; Start 07/25/16 at 16:00; Stop 07/29/16 at 16:59 Enalaprilat (Vasotec Iv) 1.25 mg Q2H PRN IV ELEVATED SYSTOLIC BP Last administered on 07/27/16 06:47; Admin Dose 1.25 MG; Start 07/25/16 at 18:30 Diagnostic Test (Pha) (Accu-Chek) 1 ea 02 XX ; Start 07/26/16 at 12:00 Clonidine HCl (Catapres-Tts 1 Patch) 1 patch Q7D TRANSDERM Last administered on 07/26/16 14:03; Admin Dose 1 PATCH; Start 07/26/16 at 13:00 Metoprolol Tartrate (Lopressor) 100 mg BID GTB Last administered on 07/27/16 08:29; Admin Dose 100 MG; Start 07/26/16 at 13:30 Clonidine HCl (Catapres-Tts 2 Patch) 1 patch Q7D TRANSDERM Last administered on 07/27/16 08:27; Admin Dose 1 PATCH; Start 07/27/16 at 07:00 PATRICIA RUEDA Jul 27, 2016 11:56
--- NOTE | 2016-07-27 12:25 | CONS ---
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 tuberculosis DNA probe to the 1st sputum sample was undetectable - s/p R VATS, total pulmonary decortication, R pleurodesis on 06/30/2016. Biopsy was negative for fungal stain and AFB stain (micro lab and pathology department), as well as malignancy. It showed granulomatous inflammation with focal necrosis and extensive hyalinization. Chest tube was removed - h/o recurrent pleural effusion requiring thoracentesis approximately once a year, last performed in 04/2016 prior to this admission - positive quantiferon TB gold status of unknown duration. Per Pt, his past PPD was done in 2013, and was negative. - Our infection internal controls specialist Lindsey contacted the TB control unit at [facility]: we learned on 07/11/2016 that Pt has h/o mycobacterial tuberculosis infection in 1997 and was treated between 1997 and 1998. - DM - ESRD on HD - CAD s/p CABG in 2010 and cardiac stent in 2013 - HIV screen negative in 07/2016 tested at [facility] recommendations - will ask the infection control office tomorrow (Thursday) if additional workup is needed re. his pleural TB before VATS. Pt's EMR indicated that Pt had hemoptysis at the time of re-admission; today Pt and his denied hemoptysis. 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 Problems: Consultation Date/Type/Reason Admit Date/Time Jul 24, 2016 at 12:53 Initial Consult Date 07/25/16 Type of Consultation: ID Referring Provider: EVA COX MD 24 HR Interval Summary Constitutional: no complaints Detailed Summary Eyes: no complaints ENT: no complaints Respiratory: cough, pain (R sided), No shortness of breath, No sputum Cardiovascular: no complaints Gastrointestinal: no complaints Genitourinary: other (on HD) Musculoskeletal: no complaints Skin: no complaints Neurologic: no complaints Exam/Review of Systems Vital Signs Vitals Vital Signs Date Time Temp Pulse Resp B/P Pulse Ox O2 Delivery O2 Flow Rate FiO2 07/27/16 12:12 69 07/27/16 08:00 Nasal Cannula 07/27/16 07:55 98.0 18 195/91 98 07/26/16 20:00 2.0 07/25/16 01:55 27 Intake and Output 07/26/16 07/26/16 07/27/16 15:00 23:00 07:00 Intake Total 380 ml 500 ml 200 ml Output Total 350 ml Balance 30 ml 500 ml 200 ml Exam Constitutional: alert, frail, oriented Psych: nl mood/affect, no complaints Head: atraumatic, normocephalic Eyes: nl conjunctiva ENMT: nl external ears & nose, nl nasal mucosa & septum Neck: supple Respiratory: diminished breath sounds, other (former chest tube site is dressed c/d/i. +tender to palpation) Cardiovascular: nl pulses, regular rate and rhythm Gastrointestinal: nl liver, spleen, non-tender, soft Musculoskeletal: nl extremities to inspection Extremities: normal pulses Skin: nl turgor, No rash or lesions Results Result Diagram: 07/27/16 1040 07/27/16 1040 Results 24 hrs Laboratory Tests Test 07/26/16 17:00 07/26/16 20:19 07/27/16 08:02 07/27/16 10:40 Bedside Glucose 199 173 101 White Blood Count 9.4 Red Blood Count 3.27 L Hemoglobin 10.2 L Hematocrit 29.6 L Mean Corpuscular Volume 90.5 Mean Corpuscular Hemoglobin 31.2 Mean Corpuscular Hemoglobin Concent 34.5 Red Cell Distribution Width 14.0 Platelet Count 148 # Mean Platelet Volume 9.9 Neutrophils % 80.1 H Lymphocytes % 7.7 L Monocytes % 9.4 Eosinophils % 1.6 Basophils % 0.7 Nucleated Red Blood Cells % 0.3 H Neutrophils # 7.5 Lymphocytes # 0.7 L Monocytes # 0.9 Eosinophils # 0.2 Basophils # 0.1 Nucleated Red Blood Cells # 0.0 Sodium Level 134 L Potassium Level 4.3 Chloride Level 96 L Carbon Dioxide Level 29 Anion Gap 13 Blood Urea Nitrogen 61 H Creatinine 7.17 H Glucose Level 170 Calcium Level 8.7 Total Bilirubin 0.2 Direct Bilirubin 0.00 Indirect Bilirubin 0.2 Aspartate Amino Transf (AST/SGOT) 35 Alanine Aminotransferase (ALT/SGPT) 23 Alkaline Phosphatase 96 Total Protein 6.3 Albumin 3.3 Globulin 3.00 Albumin/Globulin Ratio 1.10 Medications Medications Current Medications Pantoprazole (Protonix Iv) 40 mg DAILY IV Last administered on 07/27/16 08:27 ; Admin Dose 40 MG; Start 07/24/16 at 15:30 Aspirin (Halfprin) 81 mg DAILY PO Last administered on 07/26/16 08:39; Admin Dose 81 MG; Start 07/25/16 at 09:00; Status Future Hold Atorvastatin Calcium (Lipitor) 10 mg QHS PO Last administered on 07/26/16 20: 25; Admin Dose 10 MG; Start 07/24/16 at 21:00 Benazepril HCl (Lotensin) 40 mg BID PO Last administered on 07/27/16 08:28; Admin Dose 40 MG; Start 07/24/16 at 21:00 Cholecalciferol (Vitamin D) 400 units DAILY PO Last administered on 07/27/16 08:28; Admin Dose 400 UNITS; Start 07/25/16 at 09:00 Famotidine (Pepcid) 20 mg DAILY PO Last administered on 07/27/16 08:27; Admin Dose 20 MG; Start 07/25/16 at 09:00 Ferrous Sulfate (Ferrous Sulfate (Ec)) 325 mg BID PO Last administered on 08:28; Admin Dose 325 MG; Start 07/24/16 at 21:00 Acetaminophen/ Hydrocodone Bitart ([place] (5/325)) 1 tab Q4H PRN PO PAIN; Start 07/24/16 at 17:00 Insulin Glargine (Lantus) 6 unit DAILY@20 SC Last administered on 07/26/16 20: 30; Admin Dose 6 UNIT; Start 07/24/16 at 20:00 Isoniazid (Isoniazid) 300 mg DAILY PO Last administered on 07/27/16 08:27; Admin Dose 300 MG; Start 07/24/16 at 15:30 Nifedipine (Procardia Xl) 60 mg BID PO Last administered on 07/27/16 08:29; Admin Dose 60 MG; Start 07/24/16 at 21:00 Pyridoxine HCl (Vitamin B6) 50 mg DAILY PO Last administered on 07/27/16 08:27 ; Admin Dose 50 MG; Start 07/25/16 at 09:00 Rifampin (Rifampin) 600 mg DAILY PO Last administered on 07/27/16 08:28; Admin Dose 600 MG; Start 07/25/16 at 09:00 Pyrazinamide (Pyrazinamide) 1,500 mg TuThSa@20 PO Last administered on 20:27; Admin Dose 1,500 MG; Start 07/24/16 at 20:00 Ethambutol HCl (Myambutol) 1,200 mg TuThSa@20 PO Last administered on 20:25; Admin Dose 1,200 MG; Start 07/24/16 at 20:00 Miscellaneous Information 1 ea NOTE XX ; Start 07/24/16 at 16:00 Glucose (Glutose) 15 gm Q15M PRN PO DECREASED GLUCOSE; Start 07/24/16 at 16:00 Glucose (Glutose) 22.5 gm Q15M PRN PO DECREASED GLUCOSE; Start 07/24/16 at 16: 00 Dextrose (D50w Syringe) 25 ml Q15M PRN IV DECREASED GLUCOSE; Start 07/24/16 at 16:00 Dextrose (D50w Syringe) 50 ml Q15M PRN IV DECREASED GLUCOSE; Start 07/24/16 at 16:00 Glucagon (Glucagen) 1 mg Q15M PRN IM DECREASED GLUCOSE; Start 07/24/16 at 16:00 Glucose (Glutose) 15 gm Q15M PRN BUCCAL DECREASED GLUCOSE; Start 07/24/16 at 16 :00 Ondansetron HCl (Zofran Inj) 4 mg Q4 PRN IV nausea Last administered on 17:58; Admin Dose 4 MG; Start 07/24/16 at 17:00 Hydromorphone HCl (Dilaudid) 1 mg Q4 PRN IV pain Last administered on 12:50; Admin Dose 1 MG; Start 07/24/16 at 17:00 Metoclopramide HCl 5 mg 5 mg Q4H PRN IV NAUSEA Last administered on 07/26/16 10:05; Admin Dose 5 MG; Start 07/24/16 at 22:30 Ferric Sodium Gluconate Complex/ Sodium Chloride (Ferrlecit/NS) 110 ml @ 110 mls/hr Q24H IVPB Last administered on 07/26/16 17:34; Admin Dose 110 MLS/HR; Start 07/25/16 at 16:00; Stop 07/29/16 at 16:59 Enalaprilat (Vasotec Iv) 1.25 mg Q2H PRN IV ELEVATED SYSTOLIC BP Last administered on 07/27/16 06:47; Admin Dose 1.25 MG; Start 07/25/16 at 18:30 Diagnostic Test (Pha) (Accu-Chek) 1 ea 02 XX ; Start 07/26/16 at 12:00 Clonidine HCl (Catapres-Tts 1 Patch) 1 patch Q7D TRANSDERM Last administered on 07/26/16 14:03; Admin Dose 1 PATCH; Start 07/26/16 at 13:00 Metoprolol Tartrate (Lopressor) 100 mg BID GTB Last administered on 07/27/16 08:29; Admin Dose 100 MG; Start 07/26/16 at 13:30 Clonidine HCl (Catapres-Tts 2 Patch) 1 patch Q7D TRANSDERM Last administered on 07/27/16 08:27; Admin Dose 1 PATCH; Start 07/27/16 at 07:00 YUMIKO NICHOLSON M.D. Jul 27, 2016 12:25
[2016-07-27 12:51] LABS: INR 1.12; PROTIME 14.4 Sec (12.2-14.2); PT RATIO 1.1
--- NOTE | 2016-07-27 16:19 | CONS ---
Date/Time of Note Date/Time of Note DATE: 07/27/16 TIME: 16:12 Assessment/Plan Assessment/Plan Chief Complaint/Hosp Course IMPRESSION: 1. Recurrent pleural effusions. 2. Lung infiltrate. 3. chronic lung disease. 4. Hypertension. 5. Diabetes mellitus. 6. End-stage renal disease. 7. anemia. 8. cad. 9. Leukocytosis. 10. ashd 11. s/p vats. 12. The patient on anti-tuberculosis treatment. 13. 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 PLAN HD AM Problems: Consultation Date/Type/Reason Admit Date/Time Jul 24, 2016 at 12:53 Initial Consult Date 07/25/16 Type of Consultation: RENAL Referring Provider: EVA COX MD 24 HR Interval Summary Constitutional: no complaints Exam/Review of Systems Vital Signs Vitals Vital Signs Date Time Temp Pulse Resp B/P Pulse Ox O2 Delivery O2 Flow Rate FiO2 07/27/16 16:09 69 07/27/16 14:05 176/78 07/27/16 12:52 98.0 18 98 07/27/16 08:00 Nasal Cannula 07/26/16 20:00 2.0 07/25/16 01:55 27 Intake and Output 07/26/16 07/26/16 07/27/16 15:00 23:00 07:00 Intake Total 380 ml 500 ml 200 ml Output Total 350 ml Balance 30 ml 500 ml 200 ml Exam Respiratory: clear to auscultation Cardiovascular: regular rate and rhythm Gastrointestinal: bowel sounds (+), soft Results Result Diagram: 07/27/16 1040 07/27/16 1040 Results 24 hrs Laboratory Tests Test 07/26/16 17:00 07/26/16 20:19 07/27/16 08:02 07/27/16 10:40 Bedside Glucose 199 173 101 White Blood Count 9.4 Red Blood Count 3.27 L Hemoglobin 10.2 L Hematocrit 29.6 L Mean Corpuscular Volume 90.5 Mean Corpuscular Hemoglobin 31.2 Mean Corpuscular Hemoglobin Concent 34.5 Red Cell Distribution Width 14.0 Platelet Count 148 # Mean Platelet Volume 9.9 Neutrophils % 80.1 H Lymphocytes % 7.7 L Monocytes % 9.4 Eosinophils % 1.6 Basophils % 0.7 Nucleated Red Blood Cells % 0.3 H Neutrophils # 7.5 Lymphocytes # 0.7 L Monocytes # 0.9 Eosinophils # 0.2 Basophils # 0.1 Nucleated Red Blood Cells # 0.0 Sodium Level 134 L Potassium Level 4.3 Chloride Level 96 L Carbon Dioxide Level 29 Anion Gap 13 Blood Urea Nitrogen 61 H Creatinine 7.17 H Glucose Level 170 Calcium Level 8.7 Total Bilirubin 0.2 Direct Bilirubin 0.00 Indirect Bilirubin 0.2 Aspartate Amino Transf (AST/SGOT) 35 Alanine Aminotransferase (ALT/SGPT) 23 Alkaline Phosphatase 96 Total Protein 6.3 Albumin 3.3 Globulin 3.00 Albumin/Globulin Ratio 1.10 Test 07/27/16 12:23 07/27/16 12:25 Prothrombin Time 14.4 H Prothrombin Time Ratio 1.1 INR International Normalized Ratio 1.12 Bedside Glucose 165 Medications Medications Current Medications Pantoprazole (Protonix Iv) 40 mg DAILY IV Last administered on 07/27/16 08:27 ; Admin Dose 40 MG; Start 07/24/16 at 15:30 Aspirin (Halfprin) 81 mg DAILY PO Last administered on 07/26/16 08:39; Admin Dose 81 MG; Start 07/25/16 at 09:00; Status Future Hold Atorvastatin Calcium (Lipitor) 10 mg QHS PO Last administered on 07/26/16 20: 25; Admin Dose 10 MG; Start 07/24/16 at 21:00 Benazepril HCl (Lotensin) 40 mg BID PO Last administered on 07/27/16 08:28; Admin Dose 40 MG; Start 07/24/16 at 21:00 Cholecalciferol (Vitamin D) 400 units DAILY PO Last administered on 07/27/16 08:28; Admin Dose 400 UNITS; Start 07/25/16 at 09:00 Famotidine (Pepcid) 20 mg DAILY PO Last administered on 07/27/16 08:27; Admin Dose 20 MG; Start 07/25/16 at 09:00 Ferrous Sulfate (Ferrous Sulfate (Ec)) 325 mg BID PO Last administered on 08:28; Admin Dose 325 MG; Start 07/24/16 at 21:00 Acetaminophen/ Hydrocodone Bitart ([place] (5/325)) 1 tab Q4H PRN PO PAIN; Start 07/24/16 at 17:00 Insulin Glargine (Lantus) 6 unit DAILY@20 SC Last administered on 07/26/16 20: 30; Admin Dose 6 UNIT; Start 07/24/16 at 20:00 Isoniazid (Isoniazid) 300 mg DAILY PO Last administered on 07/27/16 08:27; Admin Dose 300 MG; Start 07/24/16 at 15:30 Nifedipine (Procardia Xl) 60 mg BID PO Last administered on 07/27/16 08:29; Admin Dose 60 MG; Start 07/24/16 at 21:00 Pyridoxine HCl (Vitamin B6) 50 mg DAILY PO Last administered on 07/27/16 08:27 ; Admin Dose 50 MG; Start 07/25/16 at 09:00 Rifampin (Rifampin) 600 mg DAILY PO Last administered on 07/27/16 08:28; Admin Dose 600 MG; Start 07/25/16 at 09:00 Pyrazinamide (Pyrazinamide) 1,500 mg TuThSa@20 PO Last administered on 20:27; Admin Dose 1,500 MG; Start 07/24/16 at 20:00 Ethambutol HCl (Myambutol) 1,200 mg TuThSa@20 PO Last administered on 20:25; Admin Dose 1,200 MG; Start 07/24/16 at 20:00 Miscellaneous Information 1 ea NOTE XX ; Start 07/24/16 at 16:00 Glucose (Glutose) 15 gm Q15M PRN PO DECREASED GLUCOSE; Start 07/24/16 at 16:00 Glucose (Glutose) 22.5 gm Q15M PRN PO DECREASED GLUCOSE; Start 07/24/16 at 16: 00 Dextrose (D50w Syringe) 25 ml Q15M PRN IV DECREASED GLUCOSE; Start 07/24/16 at 16:00 Dextrose (D50w Syringe) 50 ml Q15M PRN IV DECREASED GLUCOSE; Start 07/24/16 at 16:00 Glucagon (Glucagen) 1 mg Q15M PRN IM DECREASED GLUCOSE; Start 07/24/16 at 16:00 Glucose (Glutose) 15 gm Q15M PRN BUCCAL DECREASED GLUCOSE; Start 07/24/16 at 16 :00 Ondansetron HCl (Zofran Inj) 4 mg Q4 PRN IV nausea Last administered on 17:58; Admin Dose 4 MG; Start 07/24/16 at 17:00 Hydromorphone HCl (Dilaudid) 1 mg Q4 PRN IV pain Last administered on 12:50; Admin Dose 1 MG; Start 07/24/16 at 17:00 Metoclopramide HCl 5 mg 5 mg Q4H PRN IV NAUSEA Last administered on 07/26/16 10:05; Admin Dose 5 MG; Start 07/24/16 at 22:30 Ferric Sodium Gluconate Complex/ Sodium Chloride (Ferrlecit/NS) 110 ml @ 110 mls/hr Q24H IVPB Last administered on 07/26/16 17:34; Admin Dose 110 MLS/HR; Start 07/25/16 at 16:00; Stop 07/29/16 at 16:59 Enalaprilat (Vasotec Iv) 1.25 mg Q2H PRN IV ELEVATED SYSTOLIC BP Last administered on 07/27/16 14:07; Admin Dose 1.25 MG; Start 07/25/16 at 18:30 Diagnostic Test (Pha) (Accu-Chek) 1 ea 02 XX ; Start 07/26/16 at 12:00 Clonidine HCl (Catapres-Tts 1 Patch) 1 patch Q7D TRANSDERM Last administered on 07/26/16 14:03; Admin Dose 1 PATCH; Start 07/26/16 at 13:00 Metoprolol Tartrate (Lopressor) 100 mg BID GTB Last administered on 07/27/16 08:29; Admin Dose 100 MG; Start 07/26/16 at 13:30 Clonidine HCl (Catapres-Tts 2 Patch) 1 patch Q7D TRANSDERM Last administered on 07/27/16 08:27; Admin Dose 1 PATCH; Start 07/27/16 at 07:00 PAOLA MOODY MD Jul 27, 2016 16:19
[2016-07-27] MEDS: SOD FERRIC GLUC COMPLX 125 MG in SOD CHLORIDE 0.9% 100 ML IVPB SCH (16:27)
[2016-07-27] MEDS: ATORVASTATIN 10 MG TAB PO SCH (21:23)
[2016-07-27] MEDS: INSULIN GLARGINE [LANtus] 3 ML PEN SC SCH (21:33)
[2016-07-28] VITALS (20 sets, daily range): BP systolic 98–217; BP diastolic 56–100; PULSE 69–72; RESP 18–20
[2016-07-28] MEDS: hydrALAzine 20 MG INJ IV PRN (02:49)
[2016-07-28] MEDS: ACCUCHECK 2 AM XX SCH (02:54)
[2016-07-28] MEDS: PANTOPRAZOLE (EC) 40 MG TAB PO SCH (05:42)
[2016-07-28] MEDS: Insulin NOVOLOG SS MILD Algorithm (SS with meals and bedtime) SC SCH ×4 (07:30→20:22)
[2016-07-28 07:31] LABS: ADD SCAN DIFF NO
[2016-07-28 07:41] LABS: BASOPHIL # 0.1 10^3/ul (0.0-0.1); BASOPHILS % 0.6 % (0.0-2.0); EOSINOPHILS # 0.3 10^3/ul (0.0-0.5); EOSINOPHILS % 2.6 % (0.0-7.0); HEMATOCRIT 32.1 % (42.0-52.0); LYMPHOCYTES # 1.1 10^3/ul (0.8-2.9); LYMPHOCYTES % 8.5 % (15.0-51.0); MEAN CORPUSCULAR HEMOGLOBIN 30.8 pg (29.0-33.0); MEAN CORPUSCULAR HGB CONC 34.3 g/dl (32.0-37.0); MEAN CORPUSCULAR VOLUME 89.9 fl (82.0-101.0); MONOCYTE # 1.3 10^3/ul (0.3-0.9); MONOCYTES % 10.7 % (0.0-11.0); NEUTROPHIL # 9.5 10^3/ul (1.6-7.5); NUCLEATED RED BLOOD CELLS # 0.1 10^3/ul (0.0-0.0); NUCLEATED RED BLOOD CELLS% 0.6 /100WBC (0.0-0.0); PLATELET COUNT 207 10^3/UL (140-415); RED BLOOD COUNT 3.57 10^6/ul (4.70-6.10); RED CELL DISTRIBUTION WIDTH 13.8 % (11.5-14.5); WHITE BLOOD COUNT 12.3 10^3/ul (4.8-10.8)
[2016-07-28 07:49] LABS: INR 1.03; PROTIME 13.5 Sec (12.2-14.2); PT RATIO 1.1
[2016-07-28 07:50] LABS: PARTIAL THROMBOPLASTIN TIME 39.6 Sec (25.0-35.0)
[2016-07-28 07:57] LABS: POTASSIUM 3.8 mmol/L (3.5-5.1)
[2016-07-28 07:59] LABS: CREATININE 6.7 mg/dl (0.61-1.24)
[2016-07-28] MEDS: SEVELAMER CARBONATE 0.8 GM PKT PO SCH ×3 (08:43→17:09)
[2016-07-28] MEDS: ISONIAZID 300 MG TAB PO SCH (08:43)
[2016-07-28] MEDS: PYRIDOXINE 50 MG TAB PO SCH (08:43)
[2016-07-28] MEDS: NIFEdipine (XL) 60 MG TAB PO SCH ×2 (08:43→20:17)
[2016-07-28] MEDS: CALCIUM ACETATE 667 MG CAP PO SCH ×3 (08:43→17:09)
[2016-07-28] MEDS: RIFAMPIN 300 MG CAP PO SCH (08:43)
[2016-07-28] MEDS: CHOLECALCIFEROL 400 UNITS TAB PO SCH (08:44)
[2016-07-28] MEDS: BENAZEPRIL 40 MG TAB PO SCH ×2 (08:44→20:13)
[2016-07-28] MEDS: FERROUS SULFATE (EC) 325 MG TAB PO SCH ×2 (08:44→20:17)
[2016-07-28] MEDS: FAMOTIDINE 20 MG TAB PO SCH (08:44)
[2016-07-28] MEDS: METOPROLOL 100 MG TAB GTB SCH ×2 (08:44→20:12)
[2016-07-28] MEDS: INSULIN ASPART [NOVOLOG] 3 ML PEN SC SCH ×2 (08:51→12:50)
--- NOTE | 2016-07-28 08:54 | CONS ---
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, spends one month of each year in [facility], last in 09/2015), medical history (DM, ESRD), laboratory findings (positive quantiferon TB gold, granulomatous inflammation with focal necrosis on Bx) - AFB smear was negative x3, also M. tuberculosis DNA probe to the 1st sputum sample was undetectable - s/p R VATS, total pulmonary decortication, R pleurodesis on 06/30/2016. Biopsy was negative for fungal stain and AFB stain (micro lab and pathology department), as well as malignancy. It showed granulomatous inflammation with focal necrosis and extensive hyalinization. Chest tube was removed - h/o recurrent pleural effusion requiring thoracentesis approximately once a year, last performed in 04/2016 prior to this admission - positive quantiferon TB gold status of unknown duration. Per Pt, his past PPD was done in 2013, and was negative. - Our infection traffic control operator Lindsey contacted the TB control unit at [facility]: we learned on 07/11/2016 that Pt has h/o mycobacterial tuberculosis infection in 1997 and was treated between 1997 and 1998. - DM - ESRD on HD - CAD s/p CABG in 2010 and cardiac stent in 2013 - HIV screen negative in 07/2016 tested at [facility] recommendations - I called the infection control office this morning. I will the infection control again today and ask if additional workup is needed re. his pleural TB before VATS. Pt's EMR indicated that Pt had hemoptysis at the time of re- admission; Pt and his denied hemoptysis. - continue renally dosed RIPE plus vitamin B6 supplement (07/12/2016-) management d/w pt Problems: Consultation Date/Type/Reason Admit Date/Time Jul 24, 2016 at 12:53 Initial Consult Date 07/25/16 Type of Consultation: ID Referring Provider: EVA COX MD 24 HR Interval Summary Constitutional: no complaints Detailed Summary Eyes: no complaints ENT: no complaints Respiratory: other (R sided chest pain), No cough, No shortness of breath, No sputum Gastrointestinal: no complaints Genitourinary: other (HD) Musculoskeletal: no complaints Skin: no complaints Neurologic: no complaints Exam/Review of Systems Vital Signs Vitals Vital Signs Date Time Temp Pulse Resp B/P Pulse Ox O2 Delivery O2 Flow Rate FiO2 07/28/16 08:21 69 07/28/16 07:59 98.4 20 145/70 94 07/28/16 04:00 Room Air 07/26/16 20:00 2.0 07/25/16 01:55 27 Intake and Output 07/27/16 07/27/16 07/28/16 15:00 23:00 07:00 Intake Total 800 ml Output Total 300 ml Balance 500 ml Exam Constitutional: alert, oriented, well developed Psych: nl mood/affect, no complaints Head: normocephalic Eyes: nl conjunctiva, nl lids ENMT: nl external ears & nose, nl nasal mucosa & septum Neck: supple Respiratory: diminished breath sounds, other (R chest wall is TTP) Cardiovascular: nl pulses, regular rate and rhythm Gastrointestinal: nl liver, spleen, non-tender, soft Musculoskeletal: nl extremities to inspection Results Result Diagram: 07/28/1635 07/28/16 0635 Results 24 hrs Laboratory Tests Test 07/27/16 10:40 07/27/16 12:23 07/27/16 12:25 07/27/16 17:01 White Blood Count 9.4 Red Blood Count 3.27 L Hemoglobin 10.2 L Hematocrit 29.6 L Mean Corpuscular Volume 90.5 Mean Corpuscular Hemoglobin 31.2 Mean Corpuscular Hemoglobin Concent 34.5 Red Cell Distribution Width 14.0 Platelet Count 148 # Mean Platelet Volume 9.9 Neutrophils % 80.1 H Lymphocytes % 7.7 L Monocytes % 9.4 Eosinophils % 1.6 Basophils % 0.7 Nucleated Red Blood Cells % 0.3 H Neutrophils # 7.5 Lymphocytes # 0.7 L Monocytes # 0.9 Eosinophils # 0.2 Basophils # 0.1 Nucleated Red Blood Cells # 0.0 Sodium Level 134 L Potassium Level 4.3 Chloride Level 96 L Carbon Dioxide Level 29 Anion Gap 13 Blood Urea Nitrogen 61 H Creatinine 7.17 H Glucose Level 170 Calcium Level 8.7 Total Bilirubin 0.2 Direct Bilirubin 0.00 Indirect Bilirubin 0.2 Aspartate Amino Transf (AST/SGOT) 35 Alanine Aminotransferase (ALT/SGPT) 23 Alkaline Phosphatase 96 Total Protein 6.3 Albumin 3.3 Globulin 3.00 Albumin/Globulin Ratio 1.10 Prothrombin Time 14.4 H Prothrombin Time Ratio 1.1 INR International Normalized Ratio 1.12 Bedside Glucose 165 197 Test 07/27/16 21:21 07/28/16 02:54 07/28/16 06:35 07/28/16 08:14 Bedside Glucose 200 184 135 White Blood Count 12.3 #H Red Blood Count 3.57 L Hemoglobin 11.0 L Hematocrit 32.1 L Mean Corpuscular Volume 89.9 Mean Corpuscular Hemoglobin 30.8 Mean Corpuscular Hemoglobin Concent 34.3 Red Cell Distribution Width 13.8 Platelet Count 207 # Mean Platelet Volume 10.0 Neutrophils % 77.0 Lymphocytes % 8.5 L Monocytes % 10.7 Eosinophils % 2.6 Basophils % 0.6 Nucleated Red Blood Cells % 0.6 H Neutrophils # 9.5 H Lymphocytes # 1.1 Monocytes # 1.3 H Eosinophils # 0.3 Basophils # 0.1 Nucleated Red Blood Cells # 0.1 H Prothrombin Time 13.5 Prothrombin Time Ratio 1.1 INR International Normalized Ratio 1.03 Activated Partial Thromboplast Time 39.6 H Sodium Level 134 L Potassium Level 3.8 Chloride Level 101 Carbon Dioxide Level 25 Anion Gap 12 Blood Urea Nitrogen 72 H Creatinine 6.70 H Glucose Level 130 # Calcium Level 8.0 L Medications Medications Current Medications Aspirin (Halfprin) 81 mg DAILY PO Last administered on 07/26/16 08:39; Admin Dose 81 MG; Start 07/25/16 at 09:00; Status Future Hold Atorvastatin Calcium (Lipitor) 10 mg QHS PO Last administered on 07/27/16 21: 23; Admin Dose 10 MG; Start 07/24/16 at 21:00 Benazepril HCl (Lotensin) 40 mg BID PO Last administered on 07/28/16 08:44; Admin Dose 40 MG; Start 07/24/16 at 21:00 Cholecalciferol (Vitamin D) 400 units DAILY PO Last administered on 07/28/16 08:44; Admin Dose 400 UNITS; Start 07/25/16 at 09:00 Famotidine (Pepcid) 20 mg DAILY PO Last administered on 07/28/16 08:44; Admin Dose 20 MG; Start 07/25/16 at 09:00 Ferrous Sulfate (Ferrous Sulfate (Ec)) 325 mg BID PO Last administered on 08:44; Admin Dose 325 MG; Start 07/24/16 at 21:00 Acetaminophen/ Hydrocodone Bitart ([place] (5/325)) 1 tab Q4H PRN PO PAIN; Start 07/24/16 at 17:00 Insulin Glargine (Lantus) 6 unit DAILY@20 SC Last administered on 07/27/16 21: 33; Admin Dose 6 UNIT; Start 07/24/16 at 20:00 Isoniazid (Isoniazid) 300 mg DAILY PO Last administered on 07/28/16 08:43; Admin Dose 300 MG; Start 07/24/16 at 15:30 Nifedipine (Procardia Xl) 60 mg BID PO Last administered on 07/28/16 08:43; Admin Dose 60 MG; Start 07/24/16 at 21:00 Pyridoxine HCl (Vitamin B6) 50 mg DAILY PO Last administered on 07/28/16 08:43 ; Admin Dose 50 MG; Start 07/25/16 at 09:00 Rifampin (Rifampin) 600 mg DAILY PO Last administered on 07/28/16 08:43; Admin Dose 600 MG; Start 07/25/16 at 09:00 Pyrazinamide (Pyrazinamide) 1,500 mg TuThSa@20 PO Last administered on 20:27; Admin Dose 1,500 MG; Start 07/24/16 at 20:00 Ethambutol HCl (Myambutol) 1,200 mg TuThSa@20 PO Last administered on 20:25; Admin Dose 1,200 MG; Start 07/24/16 at 20:00 Miscellaneous Information 1 ea NOTE XX ; Start 07/24/16 at 16:00 Glucose (Glutose) 15 gm Q15M PRN PO DECREASED GLUCOSE; Start 07/24/16 at 16:00 Glucose (Glutose) 22.5 gm Q15M PRN PO DECREASED GLUCOSE; Start 07/24/16 at 16: 00 Dextrose (D50w Syringe) 25 ml Q15M PRN IV DECREASED GLUCOSE; Start 07/24/16 at 16:00 Dextrose (D50w Syringe) 50 ml Q15M PRN IV DECREASED GLUCOSE; Start 07/24/16 at 16:00 Glucagon (Glucagen) 1 mg Q15M PRN IM DECREASED GLUCOSE; Start 07/24/16 at 16:00 Glucose (Glutose) 15 gm Q15M PRN BUCCAL DECREASED GLUCOSE; Start 07/24/16 at 16 :00 Ondansetron HCl (Zofran Inj) 4 mg Q4 PRN IV nausea Last administered on 17:58; Admin Dose 4 MG; Start 07/24/16 at 17:00 Hydromorphone HCl (Dilaudid) 1 mg Q4 PRN IV pain Last administered on 12:50; Admin Dose 1 MG; Start 07/24/16 at 17:00 Metoclopramide HCl 5 mg 5 mg Q4H PRN IV NAUSEA Last administered on 07/26/16 10:05; Admin Dose 5 MG; Start 07/24/16 at 22:30 Ferric Sodium Gluconate Complex/ Sodium Chloride (Ferrlecit/NS) 110 ml @ 110 mls/hr Q24H IVPB Last administered on 07/27/16 16:27; Admin Dose 110 MLS/HR; Start 07/25/16 at 16:00; Stop 07/29/16 at 16:59 Diagnostic Test (Pha) (Accu-Chek) 1 ea 02 XX Last administered on 07/28/16 02: 54; Admin Dose 1 EA; Start 07/26/16 at 12:00 Clonidine HCl (Catapres-Tts 1 Patch) 1 patch Q7D TRANSDERM Last administered on 07/26/16 14:03; Admin Dose 1 PATCH; Start 07/26/16 at 13:00 Metoprolol Tartrate (Lopressor) 100 mg BID GTB Last administered on 07/28/16 08:44; Admin Dose 100 MG; Start 07/26/16 at 13:30 Clonidine HCl (Catapres-Tts 2 Patch) 1 patch Q7D TRANSDERM Last administered on 07/27/16 08:27; Admin Dose 1 PATCH; Start 07/27/16 at 07:00 Pantoprazole (Protonix Tab) 40 mg DAILY@06 PO Last administered on 07/28/16 05 :42; Admin Dose 40 MG; Start 07/28/16 at 06:00 Hydralazine HCl (Apresoline) 20 mg Q4 PRN IV ELEVATED BLOOD PRESSURE Last administered on 07/28/16 02:49; Admin Dose 20 MG; Start 07/28/16 at 02:00 Doxazosin Mesylate (Cardura) 2 mg HS PO ; Start 07/28/16 at 21:00 YUMIKO NICHOLSON M.D. Jul 28, 2016 08:54
--- NOTE | 2016-07-28 13:32 | PN ---
Date/Time of Note Date/Time of Note DATE: 07/28/16 TIME: 13:32 Assessment/Plan Lines/Catheters IV Catheter Type (from Nrsg): Central Line Jonas in Place (from Nrsg): No Assessment/Plan Chief Complaint/Hosp Course IMPRESSION: Right chest tube site bleeding, which has now subsided completely. Hgb stable Would monitor the hemoglobin levels and stop the antiplatelet. Discussed with the referring physicians. plan for VATS after the pt has been off of plavix for 5 days if there is significant effusion Problems: Subjective 24 Hr Interval Summary Constitutional: improved Pain Control: mild Exam/Review of Systems Vital Signs Vitals Vital Signs Date Time Temp Pulse Resp B/P Pulse Ox O2 Delivery O2 Flow Rate FiO2 07/28/16 12:17 98.2 70 20 181/88 96 07/28/16 04:00 Room Air 07/26/16 20:00 2.0 07/25/16 01:55 27 Intake and Output 07/27/16 07/27/16 07/28/16 15:00 23:00 07:00 Intake Total 800 ml Output Total 300 ml Balance 500 ml Exam Neck: non-tender, supple Respiratory: clear to auscultation, normal air movement Cardiovascular: nl pulses, regular rate and rhythm Gastrointestinal: nl liver, spleen, non-tender, soft Results Result Diagram: 07/28/16 0635 07/28/16 0635 LILIA FELIZ MD Jul 28, 2016 13:32
--- NOTE | 2016-07-28 14:52 | CONS ---
Date/Time of Note Date/Time of Note DATE: 07/28/16 TIME: 14:49 Assessment/Plan Assessment/Plan Chief Complaint/Hosp Course 60 year old male with ESRD, DM, HTN, CAD, with hemoptysis, right former chest tube site bleeding, resolved, with anemia of acute blood loss with bleeding from the right femoral catheter as well as chest tube site on admission. - s/p blood transfusion with dialysis for Hgb 6.8. Continue to monitor H/H and transfuse if hemoglobin < 8. now > 11 - Agree with holding antiplatelets until deemed safe to resume and once hgb stable - s/p IV iron given likely iron deficiency anemia due to blood loss, though adequate iron panel, ferritin, B12/folate, with normal retic, LDH, suggesting no signs of hemolysis and epo level (to see if would benefit from procrit given ESRD) is still pending. - agree with VATS if patient has persistent effusion Problems: Consultation Date/Type/Reason Admit Date/Time Jul 24, 2016 at 12:53 Initial Consult Date 07/25/16 Type of Consultation: Hematology Reason for Consultation anemia/ bleeding Referring Provider: EVA COX MD 24 HR Interval Summary Free Text/Dictation chest tube is no longer bleeding Exam/Review of Systems Vital Signs Vitals Vital Signs Date Time Temp Pulse Resp B/P Pulse Ox O2 Delivery O2 Flow Rate FiO2 07/28/16 12:17 98.2 70 20 181/88 96 07/28/16 04:00 Room Air 07/26/16 20:00 2.0 07/25/16 01:55 27 Intake and Output 07/27/16 07/27/16 07/28/16 15:00 23:00 07:00 Intake Total 800 ml Output Total 300 ml Balance 500 ml Exam Constitutional: alert, frail Psych: nl mood/affect, no complaints Head: normocephalic Eyes: nl conjunctiva ENMT: nl external ears & nose Neck: non-tender, supple Cardiovascular: regular rate and rhythm Gastrointestinal: soft Musculoskeletal: nl extremities to inspection Results Result Diagram: 07/28/16 0635 07/28/16 0635 Results 24 hrs Laboratory Tests Test 07/27/16 17:01 07/27/16 21:21 07/28/16 02:54 07/28/16 06:35 Bedside Glucose 197 200 184 White Blood Count 12.3 #H Red Blood Count 3.57 L Hemoglobin 11.0 L Hematocrit 32.1 L Mean Corpuscular Volume 89.9 Mean Corpuscular Hemoglobin 30.8 Mean Corpuscular Hemoglobin Concent 34.3 Red Cell Distribution Width 13.8 Platelet Count 207 # Mean Platelet Volume 10.0 Neutrophils % 77.0 Lymphocytes % 8.5 L Monocytes % 10.7 Eosinophils % 2.6 Basophils % 0.6 Nucleated Red Blood Cells % 0.6 H Neutrophils # 9.5 H Lymphocytes # 1.1 Monocytes # 1.3 H Eosinophils # 0.3 Basophils # 0.1 Nucleated Red Blood Cells # 0.1 H Prothrombin Time 13.5 Prothrombin Time Ratio 1.1 INR International Normalized Ratio 1.03 Activated Partial Thromboplast Time 39.6 H Sodium Level 134 L Potassium Level 3.8 Chloride Level 101 Carbon Dioxide Level 25 Anion Gap 12 Blood Urea Nitrogen 72 H Creatinine 6.70 H Glucose Level 130 # Calcium Level 8.0 L Test 07/28/16 08:14 07/28/16 11:55 Bedside Glucose 135 214 Medications Medications Current Medications Aspirin (Halfprin) 81 mg DAILY PO Last administered on 07/26/16 08:39; Admin Dose 81 MG; Start 07/25/16 at 09:00; Status Future Hold Atorvastatin Calcium (Lipitor) 10 mg QHS PO Last administered on 07/27/16 21: 23; Admin Dose 10 MG; Start 07/24/16 at 21:00 Benazepril HCl (Lotensin) 40 mg BID PO Last administered on 07/28/16 08:44; Admin Dose 40 MG; Start 07/24/16 at 21:00 Cholecalciferol (Vitamin D) 400 units DAILY PO Last administered on 07/28/16 08:44; Admin Dose 400 UNITS; Start 07/25/16 at 09:00 Famotidine (Pepcid) 20 mg DAILY PO Last administered on 07/28/16 08:44; Admin Dose 20 MG; Start 07/25/16 at 09:00 Ferrous Sulfate (Ferrous Sulfate (Ec)) 325 mg BID PO Last administered on 08:44; Admin Dose 325 MG; Start 07/24/16 at 21:00 Acetaminophen/ Hydrocodone Bitart ([place] (5/325)) 1 tab Q4H PRN PO PAIN; Start 07/24/16 at 17:00 Insulin Glargine (Lantus) 6 unit DAILY@20 SC Last administered on 07/27/16 21: 33; Admin Dose 6 UNIT; Start 07/24/16 at 20:00 Isoniazid (Isoniazid) 300 mg DAILY PO Last administered on 07/28/16 08:43; Admin Dose 300 MG; Start 07/24/16 at 15:30 Nifedipine (Procardia Xl) 60 mg BID PO Last administered on 07/28/16 08:43; Admin Dose 60 MG; Start 07/24/16 at 21:00 Pyridoxine HCl (Vitamin B6) 50 mg DAILY PO Last administered on 07/28/16 08:43 ; Admin Dose 50 MG; Start 07/25/16 at 09:00 Rifampin (Rifampin) 600 mg DAILY PO Last administered on 07/28/16 08:43; Admin Dose 600 MG; Start 07/25/16 at 09:00 Pyrazinamide (Pyrazinamide) 1,500 mg TuThSa@20 PO Last administered on 20:27; Admin Dose 1,500 MG; Start 07/24/16 at 20:00 Ethambutol HCl (Myambutol) 1,200 mg TuThSa@20 PO Last administered on 20:25; Admin Dose 1,200 MG; Start 07/24/16 at 20:00 Miscellaneous Information 1 ea NOTE XX ; Start 07/24/16 at 16:00 Glucose (Glutose) 15 gm Q15M PRN PO DECREASED GLUCOSE; Start 07/24/16 at 16:00 Glucose (Glutose) 22.5 gm Q15M PRN PO DECREASED GLUCOSE; Start 07/24/16 at 16: 00 Dextrose (D50w Syringe) 25 ml Q15M PRN IV DECREASED GLUCOSE; Start 07/24/16 at 16:00 Dextrose (D50w Syringe) 50 ml Q15M PRN IV DECREASED GLUCOSE; Start 07/24/16 at 16:00 Glucagon (Glucagen) 1 mg Q15M PRN IM DECREASED GLUCOSE; Start 07/24/16 at 16:00 Glucose (Glutose) 15 gm Q15M PRN BUCCAL DECREASED GLUCOSE; Start 07/24/16 at 16 :00 Ondansetron HCl (Zofran Inj) 4 mg Q4 PRN IV nausea Last administered on 17:58; Admin Dose 4 MG; Start 07/24/16 at 17:00 Hydromorphone HCl (Dilaudid) 1 mg Q4 PRN IV pain Last administered on 12:50; Admin Dose 1 MG; Start 07/24/16 at 17:00 Metoclopramide HCl 5 mg 5 mg Q4H PRN IV NAUSEA Last administered on 07/26/16 10:05; Admin Dose 5 MG; Start 07/24/16 at 22:30 Ferric Sodium Gluconate Complex/ Sodium Chloride (Ferrlecit/NS) 110 ml @ 110 mls/hr Q24H IVPB Last administered on 07/27/16 16:27; Admin Dose 110 MLS/HR; Start 07/25/16 at 16:00; Stop 07/29/16 at 16:59 Diagnostic Test (Pha) (Accu-Chek) 1 ea 02 XX Last administered on 07/28/16 02: 54; Admin Dose 1 EA; Start 07/26/16 at 12:00 Clonidine HCl (Catapres-Tts 1 Patch) 1 patch Q7D TRANSDERM Last administered on 07/26/16 14:03; Admin Dose 1 PATCH; Start 07/26/16 at 13:00 Metoprolol Tartrate (Lopressor) 100 mg BID GTB Last administered on 07/28/16 08:44; Admin Dose 100 MG; Start 07/26/16 at 13:30 Clonidine HCl (Catapres-Tts 2 Patch) 1 patch Q7D TRANSDERM Last administered on 07/27/16 08:27; Admin Dose 1 PATCH; Start 07/27/16 at 07:00 Pantoprazole (Protonix Tab) 40 mg DAILY@06 PO Last administered on 07/28/16 05 :42; Admin Dose 40 MG; Start 07/28/16 at 06:00 Hydralazine HCl (Apresoline) 20 mg Q4 PRN IV ELEVATED BLOOD PRESSURE Last administered on 07/28/16 02:49; Admin Dose 20 MG; Start 07/28/16 at 02:00 Doxazosin Mesylate (Cardura) 2 mg HS PO ; Start 07/28/16 at 21:00 ALESSANDRO MORA M.D. Jul 28, 2016 14:52
--- NOTE | 2016-07-28 15:49 | CONS ---
Date/Time of Note Date/Time of Note DATE: 07/28/16 TIME: 15:47 Consult Date/Type/Reason Admit Date/Time Jul 24, 2016 at 12:53 Initial Consult Date 07/25/16 Type of Consultation: pulmonary Ordering Provider: EVA COX MD Subjective Patient stable this afternoon having hemodialysis is less short of breath Objective Vital Signs Date Time Temp Pulse Resp B/P Pulse Ox O2 Delivery O2 Flow Rate FiO2 07/28/16 15:00 72 07/28/16 13:00 18 07/28/16 12:17 98.2 181/88 96 07/28/16 04:00 Room Air 07/26/16 20:00 2.0 07/25/16 01:55 27 Intake and Output 07/27/16 07/27/16 07/28/16 15:00 23:00 07:00 Intake Total 800 ml Output Total 300 ml Balance 500 ml Exam PHYSICAL EXAMINATION GENERAL: Elderly gentleman comfortable at rest VITAL SIGNS: see below. HEENT: Pupils equal, round, and reactive to light. CARDIAC: S1, S2, tachycardia. CHEST: Diminished air entry bilaterally. Chest tube in place ABDOMEN: Mildly distended. No bowel sounds. EXTREMITIES: No cyanosis, clubbing or edema. NEUROLOGIC: No focal deficits. Results/Medications Result Diagram: 07/28/16 0635 07/28/16 0635 Results 24 hrs Laboratory Tests Test 07/27/16 17:01 07/27/16 21:21 07/28/16 02:54 07/28/16 06:35 Bedside Glucose 197 200 184 White Blood Count 12.3 #H Red Blood Count 3.57 L Hemoglobin 11.0 L Hematocrit 32.1 L Mean Corpuscular Volume 89.9 Mean Corpuscular Hemoglobin 30.8 Mean Corpuscular Hemoglobin Concent 34.3 Red Cell Distribution Width 13.8 Platelet Count 207 # Mean Platelet Volume 10.0 Neutrophils % 77.0 Lymphocytes % 8.5 L Monocytes % 10.7 Eosinophils % 2.6 Basophils % 0.6 Nucleated Red Blood Cells % 0.6 H Neutrophils # 9.5 H Lymphocytes # 1.1 Monocytes # 1.3 H Eosinophils # 0.3 Basophils # 0.1 Nucleated Red Blood Cells # 0.1 H Prothrombin Time 13.5 Prothrombin Time Ratio 1.1 INR International Normalized Ratio 1.03 Activated Partial Thromboplast Time 39.6 H Sodium Level 134 L Potassium Level 3.8 Chloride Level 101 Carbon Dioxide Level 25 Anion Gap 12 Blood Urea Nitrogen 72 H Creatinine 6.70 H Glucose Level 130 # Calcium Level 8.0 L Test 07/28/16 08:14 07/28/16 11:55 Bedside Glucose 135 214 Medications Current Medications Aspirin (Halfprin) 81 mg DAILY PO Last administered on 07/26/16 08:39; Admin Dose 81 MG; Start 07/25/16 at 09:00; Status Future Hold Atorvastatin Calcium (Lipitor) 10 mg QHS PO Last administered on 07/27/16 21: 23; Admin Dose 10 MG; Start 07/24/16 at 21:00 Benazepril HCl (Lotensin) 40 mg BID PO Last administered on 07/28/16 08:44; Admin Dose 40 MG; Start 07/24/16 at 21:00 Cholecalciferol (Vitamin D) 400 units DAILY PO Last administered on 07/28/16 08:44; Admin Dose 400 UNITS; Start 07/25/16 at 09:00 Famotidine (Pepcid) 20 mg DAILY PO Last administered on 07/28/16 08:44; Admin Dose 20 MG; Start 07/25/16 at 09:00 Ferrous Sulfate (Ferrous Sulfate (Ec)) 325 mg BID PO Last administered on 08:44; Admin Dose 325 MG; Start 07/24/16 at 21:00 Acetaminophen/ Hydrocodone Bitart ([place] (5/325)) 1 tab Q4H PRN PO PAIN; Start 07/24/16 at 17:00 Insulin Glargine (Lantus) 6 unit DAILY@20 SC Last administered on 07/27/16 21: 33; Admin Dose 6 UNIT; Start 07/24/16 at 20:00 Isoniazid (Isoniazid) 300 mg DAILY PO Last administered on 07/28/16 08:43; Admin Dose 300 MG; Start 07/24/16 at 15:30 Nifedipine (Procardia Xl) 60 mg BID PO Last administered on 07/28/16 08:43; Admin Dose 60 MG; Start 07/24/16 at 21:00 Pyridoxine HCl (Vitamin B6) 50 mg DAILY PO Last administered on 07/28/16 08:43 ; Admin Dose 50 MG; Start 07/25/16 at 09:00 Rifampin (Rifampin) 600 mg DAILY PO Last administered on 07/28/16 08:43; Admin Dose 600 MG; Start 07/25/16 at 09:00 Pyrazinamide (Pyrazinamide) 1,500 mg TuThSa@20 PO Last administered on 20:27; Admin Dose 1,500 MG; Start 07/24/16 at 20:00 Ethambutol HCl (Myambutol) 1,200 mg TuThSa@20 PO Last administered on 20:25; Admin Dose 1,200 MG; Start 07/24/16 at 20:00 Miscellaneous Information 1 ea NOTE XX ; Start 07/24/16 at 16:00 Glucose (Glutose) 15 gm Q15M PRN PO DECREASED GLUCOSE; Start 07/24/16 at 16:00 Glucose (Glutose) 22.5 gm Q15M PRN PO DECREASED GLUCOSE; Start 07/24/16 at 16: 00 Dextrose (D50w Syringe) 25 ml Q15M PRN IV DECREASED GLUCOSE; Start 07/24/16 at 16:00 Dextrose (D50w Syringe) 50 ml Q15M PRN IV DECREASED GLUCOSE; Start 07/24/16 at 16:00 Glucagon (Glucagen) 1 mg Q15M PRN IM DECREASED GLUCOSE; Start 07/24/16 at 16:00 Glucose (Glutose) 15 gm Q15M PRN BUCCAL DECREASED GLUCOSE; Start 07/24/16 at 16 :00 Ondansetron HCl (Zofran Inj) 4 mg Q4 PRN IV nausea Last administered on 17:58; Admin Dose 4 MG; Start 07/24/16 at 17:00 Hydromorphone HCl (Dilaudid) 1 mg Q4 PRN IV pain Last administered on 12:50; Admin Dose 1 MG; Start 07/24/16 at 17:00 Metoclopramide HCl 5 mg 5 mg Q4H PRN IV NAUSEA Last administered on 07/26/16 10:05; Admin Dose 5 MG; Start 07/24/16 at 22:30 Ferric Sodium Gluconate Complex/ Sodium Chloride (Ferrlecit/NS) 110 ml @ 110 mls/hr Q24H IVPB Last administered on 07/27/16 16:27; Admin Dose 110 MLS/HR; Start 07/25/16 at 16:00; Stop 07/29/16 at 16:59 Diagnostic Test (Pha) (Accu-Chek) 1 ea 02 XX Last administered on 07/28/16 02: 54; Admin Dose 1 EA; Start 07/26/16 at 12:00 Clonidine HCl (Catapres-Tts 1 Patch) 1 patch Q7D TRANSDERM Last administered on 07/26/16 14:03; Admin Dose 1 PATCH; Start 07/26/16 at 13:00 Metoprolol Tartrate (Lopressor) 100 mg BID GTB Last administered on 07/28/16 08:44; Admin Dose 100 MG; Start 07/26/16 at 13:30 Clonidine HCl (Catapres-Tts 2 Patch) 1 patch Q7D TRANSDERM Last administered on 07/27/16 08:27; Admin Dose 1 PATCH; Start 07/27/16 at 07:00 Pantoprazole (Protonix Tab) 40 mg DAILY@06 PO Last administered on 07/28/16 05 :42; Admin Dose 40 MG; Start 07/28/16 at 06:00 Hydralazine HCl (Apresoline) 20 mg Q4 PRN IV ELEVATED BLOOD PRESSURE Last administered on 07/28/16 02:49; Admin Dose 20 MG; Start 07/28/16 at 02:00 Doxazosin Mesylate (Cardura) 2 mg HS PO ; Start 07/28/16 at 21:00 Assessment/Plan Chief Complaint/Hosp Course Assessment 1. Recurrent right pleural effusion possible hemothorax 2. Recent VATS decortication now requiring repeat procedure 3. Coronary artery disease on antiplatelet agents 4. End-stage renal failure on hemodialysis Plan 1. Continue thoracic surgery recommendations pending surgery after he is off Plavix for minimum of 5 days 2. Continue chest tube drainage 3. Continue hemodialysis 4. Encourage incentive spirometry Disposition Continue telemetry level of care Problems: MATIL[facility] DEWEY MD, [facility] Jul 28, 2016 15:49
[2016-07-28] MEDS: SOD FERRIC GLUC COMPLX 125 MG in SOD CHLORIDE 0.9% 100 ML IVPB SCH (17:05)
--- NOTE | 2016-07-28 18:11 | CONS ---
Date/Time of Note Date/Time of Note DATE: 07/28/16 TIME: 18:08 Assessment/Plan Assessment/Plan Chief Complaint/Hosp Course IMPRESSION: 1. Abnormal electrocardiogram, assess for acute coronary syndrome with no current chest pain and recently negative stress test.-negative troponin x 3 2. History of a percutaneous transluminal coronary angioplasty and stent placement to left main and left anterior descending in 2014. 3. History of coronary artery bypass graft surgery. 4. Video assisted thoracoscopic surgery pleurodesis with leakage from the chest tube site. 5. Shortness of breath. 6. End-stage renal disease on hemodialysis. 7. Tuberculosis, on therapy. 8. Hypertension 9. Diabetes mellitus. 10. Dyslipidemia. 11. Anemia-worsening s/p transfusion Recc: -Tele -Continue benazepril/BB/CCB/clonidine TTS/cardura and follow BP closely with further uptitration as necessary -Plavix/asa held in the setting of anemia/resume when possible-safe after repeat VATS procedure -HD for volume removal -Pnding repeat VATS/pleurodesis Problems: Consultation Date/Type/Reason Admit Date/Time Jul 24, 2016 at 12:53 Initial Consult Date 07/24/16 Type of Consultation: Cardiology Reason for Consultation abnl ecg/cad Referring Provider: EVA COX MD Exam/Review of Systems Vital Signs Vitals Vital Signs Date Time Temp Pulse Resp B/P Pulse Ox O2 Delivery O2 Flow Rate FiO2 07/28/16 16:44 98.5 72 20 138/76 96 07/28/16 04:00 Room Air 07/26/16 20:00 2.0 07/25/16 01:55 27 Intake and Output 07/27/16 07/27/16 07/28/16 15:00 23:00 07:00 Intake Total 800 ml Output Total 300 ml Balance 500 ml Exam Review of Systems: CONSTITUTIONAL: No fevers, chills. PULMONARY: mild sob CARDIOVASCULAR: No chest pain/palpitations GASTROINTESTINAL: No nausea/vomiting. GENITOURINARY: No hematuria/dysuria. MUSCULOSKELETAL: No myagias/arthalgias. PSYCHIATRIC: The patient denies depression. NEUROLOGIC: No weakness Constitutional: alert, oriented Psych: no complaints Head: normocephalic ENMT: mucosa pink and moist Neck: jvd (9 cm water), supple Respiratory: diminished breath sounds (at bases/B) Cardiovascular: regular rate and rhythm Gastrointestinal: non-tender, soft Musculoskeletal: muscle tone (normal) Extremities: edema (none) Neurological: other (N O focal deficits) Results Result Diagram: 07/28/16 0635 07/28/16 0635 Results 24 hrs Laboratory Tests Test 07/27/16 21:21 07/28/16 02:54 07/28/16 06:35 07/28/16 08:14 Bedside Glucose 200 184 135 White Blood Count 12.3 #H Red Blood Count 3.57 L Hemoglobin 11.0 L Hematocrit 32.1 L Mean Corpuscular Volume 89.9 Mean Corpuscular Hemoglobin 30.8 Mean Corpuscular Hemoglobin Concent 34.3 Red Cell Distribution Width 13.8 Platelet Count 207 # Mean Platelet Volume 10.0 Neutrophils % 77.0 Lymphocytes % 8.5 L Monocytes % 10.7 Eosinophils % 2.6 Basophils % 0.6 Nucleated Red Blood Cells % 0.6 H Neutrophils # 9.5 H Lymphocytes # 1.1 Monocytes # 1.3 H Eosinophils # 0.3 Basophils # 0.1 Nucleated Red Blood Cells # 0.1 H Prothrombin Time 13.5 Prothrombin Time Ratio 1.1 INR International Normalized Ratio 1.03 Activated Partial Thromboplast Time 39.6 H Sodium Level 134 L Potassium Level 3.8 Chloride Level 101 Carbon Dioxide Level 25 Anion Gap 12 Blood Urea Nitrogen 72 H Creatinine 6.70 H Glucose Level 130 # Calcium Level 8.0 L Test 07/28/16 11:55 07/28/16 16:52 Bedside Glucose 214 308 H Medications Medications Current Medications Aspirin (Halfprin) 81 mg DAILY PO Last administered on 07/26/16 08:39; Admin Dose 81 MG; Start 07/25/16 at 09:00; Status Future Hold Atorvastatin Calcium (Lipitor) 10 mg QHS PO Last administered on 07/27/16 21: 23; Admin Dose 10 MG; Start 07/24/16 at 21:00 Benazepril HCl (Lotensin) 40 mg BID PO Last administered on 07/28/16 08:44; Admin Dose 40 MG; Start 07/24/16 at 21:00 Cholecalciferol (Vitamin D) 400 units DAILY PO Last administered on 07/28/16 08:44; Admin Dose 400 UNITS; Start 07/25/16 at 09:00 Famotidine (Pepcid) 20 mg DAILY PO Last administered on 07/28/16 08:44; Admin Dose 20 MG; Start 07/25/16 at 09:00 Ferrous Sulfate (Ferrous Sulfate (Ec)) 325 mg BID PO Last administered on 08:44; Admin Dose 325 MG; Start 07/24/16 at 21:00 Acetaminophen/ Hydrocodone Bitart ([place] (5/325)) 1 tab Q4H PRN PO PAIN; Start 07/24/16 at 17:00 Insulin Glargine (Lantus) 6 unit DAILY@20 SC Last administered on 07/27/16 21: 33; Admin Dose 6 UNIT; Start 07/24/16 at 20:00 Isoniazid (Isoniazid) 300 mg DAILY PO Last administered on 07/28/16 08:43; Admin Dose 300 MG; Start 07/24/16 at 15:30 Nifedipine (Procardia Xl) 60 mg BID PO Last administered on 07/28/16 08:43; Admin Dose 60 MG; Start 07/24/16 at 21:00 Pyridoxine HCl (Vitamin B6) 50 mg DAILY PO Last administered on 07/28/16 08:43 ; Admin Dose 50 MG; Start 07/25/16 at 09:00 Rifampin (Rifampin) 600 mg DAILY PO Last administered on 07/28/16 08:43; Admin Dose 600 MG; Start 07/25/16 at 09:00 Pyrazinamide (Pyrazinamide) 1,500 mg TuThSa@20 PO Last administered on 20:27; Admin Dose 1,500 MG; Start 07/24/16 at 20:00 Ethambutol HCl (Myambutol) 1,200 mg TuThSa@20 PO Last administered on 20:25; Admin Dose 1,200 MG; Start 07/24/16 at 20:00 Miscellaneous Information 1 ea NOTE XX ; Start 07/24/16 at 16:00 Glucose (Glutose) 15 gm Q15M PRN PO DECREASED GLUCOSE; Start 07/24/16 at 16:00 Glucose (Glutose) 22.5 gm Q15M PRN PO DECREASED GLUCOSE; Start 07/24/16 at 16: 00 Dextrose (D50w Syringe) 25 ml Q15M PRN IV DECREASED GLUCOSE; Start 07/24/16 at 16:00 Dextrose (D50w Syringe) 50 ml Q15M PRN IV DECREASED GLUCOSE; Start 07/24/16 at 16:00 Glucagon (Glucagen) 1 mg Q15M PRN IM DECREASED GLUCOSE; Start 07/24/16 at 16:00 Glucose (Glutose) 15 gm Q15M PRN BUCCAL DECREASED GLUCOSE; Start 07/24/16 at 16 :00 Ondansetron HCl (Zofran Inj) 4 mg Q4 PRN IV nausea Last administered on 17:58; Admin Dose 4 MG; Start 07/24/16 at 17:00 Hydromorphone HCl (Dilaudid) 1 mg Q4 PRN IV pain Last administered on 12:50; Admin Dose 1 MG; Start 07/24/16 at 17:00 Metoclopramide HCl 5 mg 5 mg Q4H PRN IV NAUSEA Last administered on 07/26/16 10:05; Admin Dose 5 MG; Start 07/24/16 at 22:30 Ferric Sodium Gluconate Complex/ Sodium Chloride (Ferrlecit/NS) 110 ml @ 110 mls/hr Q24H IVPB Last administered on 07/28/16 17:05; Admin Dose 110 MLS/HR; Start 07/25/16 at 16:00; Stop 07/29/16 at 16:59 Diagnostic Test (Pha) (Accu-Chek) 1 ea 02 XX Last administered on 07/28/16 02: 54; Admin Dose 1 EA; Start 07/26/16 at 12:00 Clonidine HCl (Catapres-Tts 1 Patch) 1 patch Q7D TRANSDERM Last administered on 07/26/16 14:03; Admin Dose 1 PATCH; Start 07/26/16 at 13:00 Metoprolol Tartrate (Lopressor) 100 mg BID GTB Last administered on 07/28/16 08:44; Admin Dose 100 MG; Start 07/26/16 at 13:30 Clonidine HCl (Catapres-Tts 2 Patch) 1 patch Q7D TRANSDERM Last administered on 07/27/16 08:27; Admin Dose 1 PATCH; Start 07/27/16 at 07:00 Pantoprazole (Protonix Tab) 40 mg DAILY@06 PO Last administered on 07/28/16 05 :42; Admin Dose 40 MG; Start 07/28/16 at 06:00 Hydralazine HCl (Apresoline) 20 mg Q4 PRN IV ELEVATED BLOOD PRESSURE Last administered on 07/28/16 02:49; Admin Dose 20 MG; Start 07/28/16 at 02:00 Doxazosin Mesylate (Cardura) 2 mg HS PO ; Start 07/28/16 at 21:00 SHERITA SCOTT Jul 28, 2016 18:11
--- NOTE | 2016-07-28 18:36 | CONS ---
Date/Time of Note Date/Time of Note DATE: 07/28/16 TIME: 18:35 Assessment/Plan Assessment/Plan Chief Complaint/Hosp Course IMPRESSION: 1. Recurrent pleural effusions. 2. Lung infiltrate. 3. chronic lung disease. 4. Hypertension. 5. Diabetes mellitus. 6. End-stage renal disease. 7. anemia. 8. cad. 9. Leukocytosis. 10. ashd 11. s/p vats. 12. The patient on anti-tuberculosis treatment. 13. 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 PLAN HD Problems: Consultation Date/Type/Reason Admit Date/Time Jul 24, 2016 at 12:53 Initial Consult Date 07/25/16 Type of Consultation: renal Referring Provider: EVA COX MD 24 HR Interval Summary Constitutional: other (seen on hd) Exam/Review of Systems Vital Signs Vitals Vital Signs Date Time Temp Pulse Resp B/P Pulse Ox O2 Delivery O2 Flow Rate FiO2 07/28/16 16:44 98.5 72 20 138/76 96 07/28/16 04:00 Room Air 07/26/16 20:00 2.0 07/25/16 01:55 27 Intake and Output 07/27/16 07/27/16 07/28/16 15:00 23:00 07:00 Intake Total 800 ml Output Total 300 ml Balance 500 ml Exam Respiratory: diminished breath sounds Cardiovascular: regular rate and rhythm Gastrointestinal: soft Musculoskeletal: nl extremities to inspection Extremities: normal pulses Results Result Diagram: 07/28/16 0635 07/28/16 0635 Results 24 hrs Laboratory Tests Test 07/27/16 21:21 07/28/16 02:54 07/28/16 06:35 07/28/16 08:14 Bedside Glucose 200 184 135 White Blood Count 12.3 #H Red Blood Count 3.57 L Hemoglobin 11.0 L Hematocrit 32.1 L Mean Corpuscular Volume 89.9 Mean Corpuscular Hemoglobin 30.8 Mean Corpuscular Hemoglobin Concent 34.3 Red Cell Distribution Width 13.8 Platelet Count 207 # Mean Platelet Volume 10.0 Neutrophils % 77.0 Lymphocytes % 8.5 L Monocytes % 10.7 Eosinophils % 2.6 Basophils % 0.6 Nucleated Red Blood Cells % 0.6 H Neutrophils # 9.5 H Lymphocytes # 1.1 Monocytes # 1.3 H Eosinophils # 0.3 Basophils # 0.1 Nucleated Red Blood Cells # 0.1 H Prothrombin Time 13.5 Prothrombin Time Ratio 1.1 INR International Normalized Ratio 1.03 Activated Partial Thromboplast Time 39.6 H Sodium Level 134 L Potassium Level 3.8 Chloride Level 101 Carbon Dioxide Level 25 Anion Gap 12 Blood Urea Nitrogen 72 H Creatinine 6.70 H Glucose Level 130 # Calcium Level 8.0 L Test 07/28/16 11:55 07/28/16 16:52 Bedside Glucose 214 308 H Medications Medications Current Medications Aspirin (Halfprin) 81 mg DAILY PO Last administered on 07/26/16 08:39; Admin Dose 81 MG; Start 07/25/16 at 09:00; Status Future Hold Atorvastatin Calcium (Lipitor) 10 mg QHS PO Last administered on 07/27/16 21: 23; Admin Dose 10 MG; Start 07/24/16 at 21:00 Benazepril HCl (Lotensin) 40 mg BID PO Last administered on 07/28/16 08:44; Admin Dose 40 MG; Start 07/24/16 at 21:00 Cholecalciferol (Vitamin D) 400 units DAILY PO Last administered on 07/28/16 08:44; Admin Dose 400 UNITS; Start 07/25/16 at 09:00 Famotidine (Pepcid) 20 mg DAILY PO Last administered on 07/28/16 08:44; Admin Dose 20 MG; Start 07/25/16 at 09:00 Ferrous Sulfate (Ferrous Sulfate (Ec)) 325 mg BID PO Last administered on 08:44; Admin Dose 325 MG; Start 07/24/16 at 21:00 Acetaminophen/ Hydrocodone Bitart ([place] (5/325)) 1 tab Q4H PRN PO PAIN; Start 07/24/16 at 17:00 Insulin Glargine (Lantus) 6 unit DAILY@20 SC Last administered on 07/27/16 21: 33; Admin Dose 6 UNIT; Start 07/24/16 at 20:00 Isoniazid (Isoniazid) 300 mg DAILY PO Last administered on 07/28/16 08:43; Admin Dose 300 MG; Start 07/24/16 at 15:30 Nifedipine (Procardia Xl) 60 mg BID PO Last administered on 07/28/16 08:43; Admin Dose 60 MG; Start 07/24/16 at 21:00 Pyridoxine HCl (Vitamin B6) 50 mg DAILY PO Last administered on 07/28/16 08:43 ; Admin Dose 50 MG; Start 07/25/16 at 09:00 Rifampin (Rifampin) 600 mg DAILY PO Last administered on 07/28/16 08:43; Admin Dose 600 MG; Start 07/25/16 at 09:00 Pyrazinamide (Pyrazinamide) 1,500 mg TuThSa@20 PO Last administered on 20:27; Admin Dose 1,500 MG; Start 07/24/16 at 20:00 Ethambutol HCl (Myambutol) 1,200 mg TuThSa@20 PO Last administered on 20:25; Admin Dose 1,200 MG; Start 07/24/16 at 20:00 Miscellaneous Information 1 ea NOTE XX ; Start 07/24/16 at 16:00 Glucose (Glutose) 15 gm Q15M PRN PO DECREASED GLUCOSE; Start 07/24/16 at 16:00 Glucose (Glutose) 22.5 gm Q15M PRN PO DECREASED GLUCOSE; Start 07/24/16 at 16: 00 Dextrose (D50w Syringe) 25 ml Q15M PRN IV DECREASED GLUCOSE; Start 07/24/16 at 16:00 Dextrose (D50w Syringe) 50 ml Q15M PRN IV DECREASED GLUCOSE; Start 07/24/16 at 16:00 Glucagon (Glucagen) 1 mg Q15M PRN IM DECREASED GLUCOSE; Start 07/24/16 at 16:00 Glucose (Glutose) 15 gm Q15M PRN BUCCAL DECREASED GLUCOSE; Start 07/24/16 at 16 :00 Ondansetron HCl (Zofran Inj) 4 mg Q4 PRN IV nausea Last administered on 17:58; Admin Dose 4 MG; Start 07/24/16 at 17:00 Hydromorphone HCl (Dilaudid) 1 mg Q4 PRN IV pain Last administered on 12:50; Admin Dose 1 MG; Start 07/24/16 at 17:00 Metoclopramide HCl 5 mg 5 mg Q4H PRN IV NAUSEA Last administered on 07/26/16 10:05; Admin Dose 5 MG; Start 07/24/16 at 22:30 Ferric Sodium Gluconate Complex/ Sodium Chloride (Ferrlecit/NS) 110 ml @ 110 mls/hr Q24H IVPB Last administered on 07/28/16 17:05; Admin Dose 110 MLS/HR; Start 07/25/16 at 16:00; Stop 07/29/16 at 16:59 Diagnostic Test (Pha) (Accu-Chek) 1 ea 02 XX Last administered on 07/28/16 02: 54; Admin Dose 1 EA; Start 07/26/16 at 12:00 Clonidine HCl (Catapres-Tts 1 Patch) 1 patch Q7D TRANSDERM Last administered on 07/26/16 14:03; Admin Dose 1 PATCH; Start 07/26/16 at 13:00 Metoprolol Tartrate (Lopressor) 100 mg BID GTB Last administered on 07/28/16 08:44; Admin Dose 100 MG; Start 07/26/16 at 13:30 Clonidine HCl (Catapres-Tts 2 Patch) 1 patch Q7D TRANSDERM Last administered on 07/27/16 08:27; Admin Dose 1 PATCH; Start 07/27/16 at 07:00 Pantoprazole (Protonix Tab) 40 mg DAILY@06 PO Last administered on 07/28/16 05 :42; Admin Dose 40 MG; Start 07/28/16 at 06:00 Hydralazine HCl (Apresoline) 20 mg Q4 PRN IV ELEVATED BLOOD PRESSURE Last administered on 07/28/16 02:49; Admin Dose 20 MG; Start 07/28/16 at 02:00 Doxazosin Mesylate (Cardura) 2 mg HS PO ; Start 07/28/16 at 21:00 PAOLA MOODY MD Jul 28, 2016 18:36
[2016-07-28] MEDS ORDERED: POLYETHYLENE GLYCOL 17 GM PACKET GTB PRN (19:30)
--- NOTE | 2016-07-28 19:34 | PN ---
Date/Time of Note Date/Time of Note DATE: 07/28/16 TIME: 19:31 Assessment/Plan VTE Prophylaxis VTE Prophylaxis Intervention: SCD's Lines/Catheters IV [facility]from [facility] Central Line Central line still needed: Yes Urinary Cath still in place: No Assessment/Plan Chief Complaint/Hosp Course Assessment and plan: - Recurrent right pleural effusion with possible hemothorax, plan for VATS, Plavix his Plavix is on hold. -Hemoptysis, resolved. Dr. Dale is following in pulmonology consultation. Dr. Tucker is following an infection disease consultation. -Right former chest tube site bleeding, resolved. Dr. Martinez is following in thoracic surgery consultation. -Anemia of acute blood loss, patient had bleeding from the right femoral catheter as well as chest tube site on admission, status post blood transfusion , continue to monitor hemoglobin and hematocrit. Dr. Martinez is following in hematology consultation. - Quantiferon Gold positive, prior Hx of TB per department of health, s/p treatment in 1998, continue RIPA. - End-stage renal disease, continue hemodialysis. Dr. Saunders is following in nephrology consultation. - Diabetes mellitus type 2, continue Lantus, pre-meal NovoLog and NovoLog per mild algorithm sliding scale. - Hypertension. Dr. De Santiago is following and cardiology consultation. Continue benazepril metoprolol hydralazine Procardia - Coronary artery disease, status post coronary artery bypass graft, s/p percutaneous transluminal coronary angioplasty and stent placement to left main and left anterior descending in 2014. - Permanent pacemaker. No acute issues. - Dyslipidemia. Continue Lipitor. - Constipation, start patient on bowel regimen. Further recommendations based on clinical course. Plan of care discussed with Dr. Price. Problems: Subjective 24 Hr Interval Summary Free Text/Dictation Patient status post hemodialysis today, denies any chest pain, complains of constipation. Exam/Review of Systems Vital Signs Vitals Vital Signs Date Time Temp Pulse Resp B/P Pulse Ox O2 Delivery O2 Flow Rate FiO2 07/28/16 16:44 98.5 72 20 138/76 96 07/28/16 04:00 Room Air 07/26/16 20:00 2.0 07/25/16 01:55 27 Intake and Output 07/27/16 07/27/16 07/28/16 15:00 23:00 07:00 Intake Total 800 ml Output Total 300 ml Balance 500 ml Exam Constitutional: alert, oriented Psych: no complaints Head: atraumatic, normocephalic ENMT: nl external ears & nose Neck: non-tender, supple Respiratory: clear to auscultation, normal air movement Cardiovascular: other (Left chest permanent pacemaker), regular rate and rhythm Gastrointestinal: bowel sounds, soft Extremities: normal pulses Neurological: [employer] II-XII intact Results Result Diagram: 07/28/16 0635 07/28/16 0635 Results 24 hrs Laboratory Tests Test 07/27/16 21:21 07/28/16 02:54 07/28/16 06:35 07/28/16 08:14 Bedside Glucose 200 184 135 White Blood Count 12.3 #H Red Blood Count 3.57 L Hemoglobin 11.0 L Hematocrit 32.1 L Mean Corpuscular Volume 89.9 Mean Corpuscular Hemoglobin 30.8 Mean Corpuscular Hemoglobin Concent 34.3 Red Cell Distribution Width 13.8 Platelet Count 207 # Mean Platelet Volume 10.0 Neutrophils % 77.0 Lymphocytes % 8.5 L Monocytes % 10.7 Eosinophils % 2.6 Basophils % 0.6 Nucleated Red Blood Cells % 0.6 H Neutrophils # 9.5 H Lymphocytes # 1.1 Monocytes # 1.3 H Eosinophils # 0.3 Basophils # 0.1 Nucleated Red Blood Cells # 0.1 H Prothrombin Time 13.5 Prothrombin Time Ratio 1.1 INR International Normalized Ratio 1.03 Activated Partial Thromboplast Time 39.6 H Sodium Level 134 L Potassium Level 3.8 Chloride Level 101 Carbon Dioxide Level 25 Anion Gap 12 Blood Urea Nitrogen 72 H Creatinine 6.70 H Glucose Level 130 # Calcium Level 8.0 L Test 07/28/16 11:55 07/28/16 16:52 Bedside Glucose 214 308 H Medications Medications Current Medications Aspirin (Halfprin) 81 mg DAILY PO Last administered on 07/26/16 08:39; Admin Dose 81 MG; Start 07/25/16 at 09:00; Status Future Hold Atorvastatin Calcium (Lipitor) 10 mg QHS PO Last administered on 07/27/16 21: 23; Admin Dose 10 MG; Start 07/24/16 at 21:00 Benazepril HCl (Lotensin) 40 mg BID PO Last administered on 07/28/16 08:44; Admin Dose 40 MG; Start 07/24/16 at 21:00 Cholecalciferol (Vitamin D) 400 units DAILY PO Last administered on 07/28/16 08:44; Admin Dose 400 UNITS; Start 07/25/16 at 09:00 Famotidine (Pepcid) 20 mg DAILY PO Last administered on 07/28/16 08:44; Admin Dose 20 MG; Start 07/25/16 at 09:00 Ferrous Sulfate (Ferrous Sulfate (Ec)) 325 mg BID PO Last administered on 08:44; Admin Dose 325 MG; Start 07/24/16 at 21:00 Acetaminophen/ Hydrocodone Bitart ([place] (5/325)) 1 tab Q4H PRN PO PAIN; Start 07/24/16 at 17:00 Insulin Glargine (Lantus) 6 unit DAILY@20 SC Last administered on 07/27/16 21: 33; Admin Dose 6 UNIT; Start 07/24/16 at 20:00 Isoniazid (Isoniazid) 300 mg DAILY PO Last administered on 07/28/16 08:43; Admin Dose 300 MG; Start 07/24/16 at 15:30 Nifedipine (Procardia Xl) 60 mg BID PO Last administered on 07/28/16 08:43; Admin Dose 60 MG; Start 07/24/16 at 21:00 Pyridoxine HCl (Vitamin B6) 50 mg DAILY PO Last administered on 07/28/16 08:43 ; Admin Dose 50 MG; Start 07/25/16 at 09:00 Rifampin (Rifampin) 600 mg DAILY PO Last administered on 07/28/16 08:43; Admin Dose 600 MG; Start 07/25/16 at 09:00 Pyrazinamide (Pyrazinamide) 1,500 mg TuThSa@20 PO Last administered on 20:27; Admin Dose 1,500 MG; Start 07/24/16 at 20:00 Ethambutol HCl (Myambutol) 1,200 mg TuThSa@20 PO Last administered on 20:25; Admin Dose 1,200 MG; Start 07/24/16 at 20:00 Miscellaneous Information 1 ea NOTE XX ; Start 07/24/16 at 16:00 Glucose (Glutose) 15 gm Q15M PRN PO DECREASED GLUCOSE; Start 07/24/16 at 16:00 Glucose (Glutose) 22.5 gm Q15M PRN PO DECREASED GLUCOSE; Start 07/24/16 at 16: 00 Dextrose (D50w Syringe) 25 ml Q15M PRN IV DECREASED GLUCOSE; Start 07/24/16 at 16:00 Dextrose (D50w Syringe) 50 ml Q15M PRN IV DECREASED GLUCOSE; Start 07/24/16 at 16:00 Glucagon (Glucagen) 1 mg Q15M PRN IM DECREASED GLUCOSE; Start 07/24/16 at 16:00 Glucose (Glutose) 15 gm Q15M PRN BUCCAL DECREASED GLUCOSE; Start 07/24/16 at 16 :00 Ondansetron HCl (Zofran Inj) 4 mg Q4 PRN IV nausea Last administered on 17:58; Admin Dose 4 MG; Start 07/24/16 at 17:00 Hydromorphone HCl (Dilaudid) 1 mg Q4 PRN IV pain Last administered on 12:50; Admin Dose 1 MG; Start 07/24/16 at 17:00 Metoclopramide HCl 5 mg 5 mg Q4H PRN IV NAUSEA Last administered on 07/26/16 10:05; Admin Dose 5 MG; Start 07/24/16 at 22:30 Ferric Sodium Gluconate Complex/ Sodium Chloride (Ferrlecit/NS) 110 ml @ 110 mls/hr Q24H IVPB Last administered on 07/28/16 17:05; Admin Dose 110 MLS/HR; Start 07/25/16 at 16:00; Stop 07/29/16 at 16:59 Diagnostic Test (Pha) (Accu-Chek) 1 ea 02 XX Last administered on 07/28/16 02: 54; Admin Dose 1 EA; Start 07/26/16 at 12:00 Clonidine HCl (Catapres-Tts 1 Patch) 1 patch Q7D TRANSDERM Last administered on 07/26/16 14:03; Admin Dose 1 PATCH; Start 07/26/16 at 13:00 Metoprolol Tartrate (Lopressor) 100 mg BID GTB Last administered on 07/28/16 08:44; Admin Dose 100 MG; Start 07/26/16 at 13:30 Clonidine HCl (Catapres-Tts 2 Patch) 1 patch Q7D TRANSDERM Last administered on 07/27/16 08:27; Admin Dose 1 PATCH; Start 07/27/16 at 07:00 Pantoprazole (Protonix Tab) 40 mg DAILY@06 PO Last administered on 07/28/16 05 :42; Admin Dose 40 MG; Start 07/28/16 at 06:00 Hydralazine HCl (Apresoline) 20 mg Q4 PRN IV ELEVATED BLOOD PRESSURE Last administered on 07/28/16 02:49; Admin Dose 20 MG; Start 07/28/16 at 02:00 Doxazosin Mesylate (Cardura) 2 mg HS PO ; Start 07/28/16 at 21:00 Polyethylene Glycol (Miralax) 17 gm DAILY PRN GTB CONSTIPATION; Start 07/28/16 at 19:30; Status CECILIA VALLE Jul 28, 2016 19:34
[2016-07-28] MEDS: ATORVASTATIN 10 MG TAB PO SCH (20:12)
[2016-07-28] MEDS: DOXAZOSIN 2 MG TAB PO SCH (20:13)
[2016-07-28] MEDS: INSULIN GLARGINE [LANtus] 3 ML PEN SC SCH (20:15)
[2016-07-28] MEDS: ONDANSETRON 4 MG INJ IV PRN (23:16)
[2016-07-28] MEDS: HYDROmorphONE 1 MG/ML SYG IV PRN (23:16)
[2016-07-29] VITALS (13 sets, daily range): BP systolic 83–195; BP diastolic 46–81; PULSE 69–72; RESP 17–20
[2016-07-29] MEDS: ACCUCHECK 2 AM XX SCH (02:00)
[2016-07-29] MEDS: hydrALAzine 20 MG INJ IV PRN (02:48)
[2016-07-29] MEDS: ONDANSETRON 4 MG INJ IV PRN ×3 (02:48→21:28)
[2016-07-29] MEDS: PANTOPRAZOLE (EC) 40 MG TAB PO SCH (05:39)
[2016-07-29] MEDS: LORAZEPAM 2 MG INJ IV PRN ×2 (06:28→21:28)
[2016-07-29] MEDS: METOPROLOL 100 MG TAB GTB SCH ×2 (08:39→21:00)
[2016-07-29] MEDS: BENAZEPRIL 40 MG TAB PO SCH ×2 (08:40→21:00)
[2016-07-29] MEDS: NIFEdipine (XL) 60 MG TAB PO SCH ×2 (08:40→21:00)
--- NOTE | 2016-07-29 08:59 | CONS ---
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 tuberculosis DNA probe to the 1st sputum sample was undetectable - s/p R VATS, total pulmonary decortication, R pleurodesis on 06/30/2016. Biopsy was negative for fungal stain and AFB stain (micro lab and pathology department), as well as malignancy. It showed granulomatous inflammation with focal necrosis and extensive hyalinization. Chest tube was removed - h/o recurrent pleural effusion requiring thoracentesis approximately once a year, last performed in 04/2016 prior to this admission - positive quantiferon TB gold status of unknown duration. Per Pt, his past PPD was done in 2013, and was negative. - Our infection senior quality control technician Lindsey contacted the TB control unit at [facility]: we learned on 07/11/2016 that Pt has h/o mycobacterial tuberculosis infection in 1997 and was treated between 1997 and 1998. - DM - ESRD on HD - CAD s/p CABG in 2010 and cardiac stent in 2013 - HIV screen negative in 07/2016 tested at [facility] recommendations - when Pt undergoes VATS, will order AFB smear and MTB DNA probe to from pleural biopsy - continue renally dosed RIPE plus vitamin B6 supplement (07/12/2016-) management discussed with Pt's RN, d/w Lindsey at infection control yesterday Problems: Consultation Date/Type/Reason Admit Date/Time Jul 24, 2016 at 12:53 Initial Consult Date 07/25/16 Type of Consultation: ID Referring Provider: EVA COX MD 24 HR Interval Summary Subjective hx not possible: pt non-verbal, other (very lethargic today) Exam/Review of Systems Vital Signs Vitals Vital Signs Date Time Temp Pulse Resp B/P Pulse Ox O2 Delivery O2 Flow Rate FiO2 07/29/16 08:48 98.0 70 20 118/78 98 07/28/16 04:00 Room Air 07/26/16 20:00 2.0 Intake and Output 07/28/16 07/28/16 07/29/16 15:00 23:00 07:00 Intake Total 1260 ml 200 ml Output Total 2800 ml 70 ml Balance -1540 ml 130 ml Exam Constitutional: frail, non-verbal Psych: nl mood/affect, no complaints Head: atraumatic, normocephalic Eyes: nl conjunctiva, nl lids ENMT: nl external ears & nose, nl nasal mucosa & septum Neck: supple Respiratory: clear to auscultation, normal air movement, other (R chest wall mildly TTP) Cardiovascular: nl pulses, regular rate and rhythm Gastrointestinal: other (Pt did not assume supine position to allow abdominal exam), No distended Musculoskeletal: nl extremities to inspection Extremities: No edema Neurological: lethargic Skin: nl turgor Results Result Diagram: 07/28/16 0635 07/28/16 0635 Results 24 hrs Laboratory Tests Test 07/28/16 11:55 07/28/16 16:52 07/28/16 20:10 07/29/16 02:27 Bedside Glucose 214 308 H 306 H 76 Test 07/29/16 07:59 Bedside Glucose 144 Medications Medications Current Medications Aspirin (Halfprin) 81 mg DAILY PO Last administered on 07/26/16 08:39; Admin Dose 81 MG; Start 07/25/16 at 09:00; Status Future Hold Atorvastatin Calcium (Lipitor) 10 mg QHS PO Last administered on 07/28/16 20: 12; Admin Dose 10 MG; Start 07/24/16 at 21:00 Benazepril HCl (Lotensin) 40 mg BID PO Last administered on 07/28/16 20:13; Admin Dose 40 MG; Start 07/24/16 at 21:00 Cholecalciferol (Vitamin D) 400 units DAILY PO Last administered on 07/28/16 08:44; Admin Dose 400 UNITS; Start 07/25/16 at 09:00 Famotidine (Pepcid) 20 mg DAILY PO Last administered on 07/28/16 08:44; Admin Dose 20 MG; Start 07/25/16 at 09:00 Ferrous Sulfate (Ferrous Sulfate (Ec)) 325 mg BID PO Last administered on 20:17; Admin Dose 325 MG; Start 07/24/16 at 21:00 Acetaminophen/ Hydrocodone Bitart ([place] (5/325)) 1 tab Q4H PRN PO PAIN; Start 07/24/16 at 17:00 Insulin Glargine (Lantus) 6 unit DAILY@20 SC Last administered on 07/28/16 20: 15; Admin Dose 6 UNIT; Start 07/24/16 at 20:00 Isoniazid (Isoniazid) 300 mg DAILY PO Last administered on 07/28/16 08:43; Admin Dose 300 MG; Start 07/24/16 at 15:30 Nifedipine (Procardia Xl) 60 mg BID PO Last administered on 07/28/16 20:17; Admin Dose 60 MG; Start 07/24/16 at 21:00 Pyridoxine HCl (Vitamin B6) 50 mg DAILY PO Last administered on 07/28/16 08:43 ; Admin Dose 50 MG; Start 07/25/16 at 09:00 Rifampin (Rifampin) 600 mg DAILY PO Last administered on 07/28/16 08:43; Admin Dose 600 MG; Start 07/25/16 at 09:00 Pyrazinamide (Pyrazinamide) 1,500 mg TuThSa@20 PO Last administered on 20:27; Admin Dose 1,500 MG; Start 07/24/16 at 20:00 Ethambutol HCl (Myambutol) 1,200 mg TuThSa@20 PO Last administered on 20:25; Admin Dose 1,200 MG; Start 07/24/16 at 20:00 Miscellaneous Information 1 ea NOTE XX ; Start 07/24/16 at 16:00 Glucose (Glutose) 15 gm Q15M PRN PO DECREASED GLUCOSE; Start 07/24/16 at 16:00 Glucose (Glutose) 22.5 gm Q15M PRN PO DECREASED GLUCOSE; Start 07/24/16 at 16: 00 Dextrose (D50w Syringe) 25 ml Q15M PRN IV DECREASED GLUCOSE; Start 07/24/16 at 16:00 Dextrose (D50w Syringe) 50 ml Q15M PRN IV DECREASED GLUCOSE; Start 07/24/16 at 16:00 Glucagon (Glucagen) 1 mg Q15M PRN IM DECREASED GLUCOSE; Start 07/24/16 at 16:00 Glucose (Glutose) 15 gm Q15M PRN BUCCAL DECREASED GLUCOSE; Start 07/24/16 at 16 :00 Ondansetron HCl (Zofran Inj) 4 mg Q4 PRN IV nausea Last administered on 06:06; Admin Dose 4 MG; Start 07/24/16 at 17:00 Hydromorphone HCl (Dilaudid) 1 mg Q4 PRN IV pain Last administered on 23:16; Admin Dose 1 MG; Start 07/24/16 at 17:00 Metoclopramide HCl 5 mg 5 mg Q4H PRN IV NAUSEA Last administered on 07/26/16 10:05; Admin Dose 5 MG; Start 07/24/16 at 22:30 Ferric Sodium Gluconate Complex/ Sodium Chloride (Ferrlecit/NS) 110 ml @ 110 mls/hr Q24H IVPB Last administered on 07/28/16 17:05; Admin Dose 110 MLS/HR; Start 07/25/16 at 16:00; Stop 07/29/16 at 16:59 Diagnostic Test (Pha) (Accu-Chek) 1 ea 02 XX Last administered on 07/28/16 02: 54; Admin Dose 1 EA; Start 07/26/16 at 12:00 Clonidine HCl (Catapres-Tts 1 Patch) 1 patch Q7D TRANSDERM Last administered on 07/26/16 14:03; Admin Dose 1 PATCH; Start 07/26/16 at 13:00 Metoprolol Tartrate (Lopressor) 100 mg BID GTB Last administered on 07/28/16 20:12; Admin Dose 100 MG; Start 07/26/16 at 13:30 Clonidine HCl (Catapres-Tts 2 Patch) 1 patch Q7D TRANSDERM Last administered on 07/27/16 08:27; Admin Dose 1 PATCH; Start 07/27/16 at 07:00 Pantoprazole (Protonix Tab) 40 mg DAILY@06 PO Last administered on 07/29/16 05 :39; Admin Dose 40 MG; Start 07/28/16 at 06:00 Hydralazine HCl (Apresoline) 20 mg Q4 PRN IV ELEVATED BLOOD PRESSURE Last administered on 07/29/16 02:48; Admin Dose 20 MG; Start 07/28/16 at 02:00 Doxazosin Mesylate (Cardura) 2 mg HS PO Last administered on 07/28/16 20:13; Admin Dose 2 MG; Start 07/28/16 at 21:00 Polyethylene Glycol (Miralax) 17 gm DAILY PRN GTB CONSTIPATION Last administered on 07/28/16 20:22; Admin Dose 17 GM; Start 07/28/16 at 19:30 Lorazepam (Ativan) 1 mg Q4H PRN IV anxiety Last administered on 07/29/16 06:28 ; Admin Dose 1 MG; Start 07/29/16 at 06:30 YUMIKO NICHOLSON M.D. Jul 29, 2016 08:59
[2016-07-29] MEDS: Insulin NOVOLOG SS MILD Algorithm (SS with meals and bedtime) SC SCH ×4 (09:10→21:40)
[2016-07-29] MEDS: INSULIN ASPART [NOVOLOG] 3 ML PEN SC SCH ×3 (09:11→13:12)
[2016-07-29 09:53] LABS: ADD SCAN DIFF NO
[2016-07-29 09:58] LABS: BASOPHIL # 0.1 10^3/ul (0.0-0.1); BASOPHILS % 0.6 % (0.0-2.0); EOSINOPHILS # 0.2 10^3/ul (0.0-0.5); HEMATOCRIT 32.4 % (42.0-52.0); HEMOGLOBIN 10.9 g/dl (14.0-18.0); LYMPHOCYTES % 9.6 % (15.0-51.0); MEAN CORPUSCULAR HEMOGLOBIN 30.8 pg (29.0-33.0); MEAN CORPUSCULAR HGB CONC 33.6 g/dl (32.0-37.0); MEAN CORPUSCULAR VOLUME 91.5 fl (82.0-101.0); MEAN PLATELET VOLUME 10.2 fl (7.4-10.4); MONOCYTE # 1.2 10^3/ul (0.3-0.9); MONOCYTES % 11.5 % (0.0-11.0); NEUTROPHIL # 7.6 10^3/ul (1.6-7.5); NEUTROPHILS % 75.9 % (39.0-77.0); NUCLEATED RED BLOOD CELLS # 0.1 10^3/ul (0.0-0.0); NUCLEATED RED BLOOD CELLS% 0.6 /100WBC (0.0-0.0); PLATELET COUNT 178 10^3/UL (140-415); RED BLOOD COUNT 3.54 10^6/ul (4.70-6.10); RED CELL DISTRIBUTION WIDTH 13.7 % (11.5-14.5)
[2016-07-29 10:06] LABS: POTASSIUM 4.8 mmol/L (3.5-5.1)
--- NOTE | 2016-07-29 10:07 | RADRPT ---
PROCEDURE: XR Chest 1 View. CLINICAL INDICATION: Shortness of breath TECHNIQUE: AP view of the chest was obtained. COMPARISON: July 24, 2016 FINDINGS: The heart size is within normal limits. Calcified atherosclerosis is noted in the aorta. Left-sided dual chamber pacemaker has its leads over the heart and appears stable. Median sternotomy wires an d surgical clips overlie the heart. Right mid and lower lung infiltrates combined small to moderate pleural effusion are stable. The osseous structures are osteopenic, but appear grossly intact. IMPRESSION: Calcified atherosclerosis in the aorta. Stable right mid and lower lung infiltrates, combined with small to moderate pleural effusion. RPTAT: AA .Jason Samano MD, MD Date Time Electronically viewed and signed by .Jason Samano MD, on 07/29/2016 10:07 .P/
[2016-07-29 10:08] LABS: CREATININE 6.67 mg/dl (0.61-1.24)
[2016-07-29 10:09] LABS: PHOSPHORUS 4.5 mg/dl (2.5-4.9)
[2016-07-29] MEDS: SEVELAMER CARBONATE 0.8 GM PKT PO SCH ×3 (10:09→17:36)
[2016-07-29 10:10] LABS: MAGNESIUM 2.4 mg/dl (1.7-2.5)
[2016-07-29] MEDS: FERROUS SULFATE (EC) 325 MG TAB PO SCH ×2 (10:10→21:00)
[2016-07-29] MEDS: FAMOTIDINE 20 MG TAB PO SCH (10:10)
[2016-07-29] MEDS: PYRIDOXINE 50 MG TAB PO SCH (10:10)
[2016-07-29] MEDS: RIFAMPIN 300 MG CAP PO SCH (10:10)
[2016-07-29] MEDS: CALCIUM ACETATE 667 MG CAP PO SCH ×3 (10:10→17:36)
[2016-07-29] MEDS: CHOLECALCIFEROL 400 UNITS TAB PO SCH (10:10)
[2016-07-29] MEDS: ISONIAZID 300 MG TAB PO SCH (10:10)
--- NOTE | 2016-07-29 10:20 | CONS ---
Date/Time of Note Date/Time of Note DATE: 07/29/16 TIME: 10:19 Assessment/Plan Assessment/Plan Additional Assessment/Plan 1. Abnormal electrocardiogram, assess for acute coronary syndrome with no current chest pain and recently negative stress test.-negative troponin x 3 - no intervention planned now. 2. History of a percutaneous transluminal coronary angioplasty and stent placement to left main and left anterior descending in 2014. Good function - checked in the office. 3. History of coronary artery bypass graft surgery - no CP now - will follow. 4. Video assisted thoracoscopic surgery pleurodesis with leakage from the chest tube site. BETTER now. 5. Shortness of breath. 6. End-stage renal disease on hemodialysis. Rxa s needed. 7. Tuberculosis, on therapy. 8. Hypertension 9. Diabetes mellitus. 10. Dyslipidemia. 11. Anemia-worsening s/p transfusion Consultation Date/Type/Reason Admit Date/Time Jul 24, 2016 at 12:53 Initial Consult Date 07/25/16 Type of Consultation: ID Referring Provider: EVA COX MD 24 HR Interval Summary Free Text/Dictation Much better overall - heading toward d/c hopefully. No CP now - pacer with good function. ROS: No fever, no chills, no nausea, no vomiting, no diarrhea/constipation No recent weight changes No chest pain, no PND, no orthopnea No dizziness, blurred vision No thirst, no heat or cold intolerance Exam/Review of Systems Vital Signs Vitals Vital Signs Date Time Temp Pulse Resp B/P Pulse Ox O2 Delivery O2 Flow Rate FiO2 07/29/16 08:48 98.0 70 20 118/78 98 07/28/16 04:00 Room Air 07/26/16 20:00 2.0 Intake and Output 07/28/16 07/28/16 07/29/16 15:00 23:00 07:00 Intake Total 1260 ml 200 ml Output Total 2800 ml 70 ml Balance -1540 ml 130 ml Exam General: WN/WD/NAD, AOx 3 HEENT: Unicetric/atraumatic/EOMI (follow commands) NECK: JVD elevated, no thyromegaly Lymph: no lymphadenopathy HEART: regular with no S3, II/ systolic murmur at apex LUNGS: Coarse sounds ABD: soft, NT, ND, +BS : Intact Neuro: non focal SKIN: chronic changes EXT: trace edema Results Result Diagram: 07/29/16 0920 07/29/16 0920 Results 24 hrs Laboratory Tests Test 07/28/16 11:55 07/28/16 16:52 07/28/16 20:10 07/29/16 02:27 Bedside Glucose 214 308 H 306 H 76 Test 07/29/16 07:59 07/29/16 09:20 Bedside Glucose 144 White Blood Count 10.0 Red Blood Count 3.54 L Hemoglobin 10.9 L Hematocrit 32.4 L Mean Corpuscular Volume 91.5 Mean Corpuscular Hemoglobin 30.8 Mean Corpuscular Hemoglobin Concent 33.6 Red Cell Distribution Width 13.7 Platelet Count 178 Mean Platelet Volume 10.2 Neutrophils % 75.9 Lymphocytes % 9.6 L Monocytes % 11.5 H Eosinophils % 2.0 Basophils % 0.6 Nucleated Red Blood Cells % 0.6 H Neutrophils # 7.6 H Lymphocytes # 1.0 Monocytes # 1.2 H Eosinophils # 0.2 Basophils # 0.1 Nucleated Red Blood Cells # 0.1 H Sodium Level 134 L Potassium Level 4.8 Chloride Level 97 Carbon Dioxide Level 28 Anion Gap 14 Blood Urea Nitrogen 71 H Creatinine 6.67 H Glucose Level 164 Calcium Level 9.0 Phosphorus Level 4.5 Magnesium Level 2.4 Medications Medications Current Medications Aspirin (Halfprin) 81 mg DAILY PO Last administered on 07/26/16 08:39; Admin Dose 81 MG; Start 07/25/16 at 09:00; Status Future Hold Atorvastatin Calcium (Lipitor) 10 mg QHS PO Last administered on 07/28/16 20: 12; Admin Dose 10 MG; Start 07/24/16 at 21:00 Benazepril HCl (Lotensin) 40 mg BID PO Last administered on 07/28/16 20:13; Admin Dose 40 MG; Start 07/24/16 at 21:00 Cholecalciferol (Vitamin D) 400 units DAILY PO Last administered on 07/29/16 10:10; Admin Dose 400 UNITS; Start 07/25/16 at 09:00 Famotidine (Pepcid) 20 mg DAILY PO Last administered on 07/29/16 10:10; Admin Dose 20 MG; Start 07/25/16 at 09:00 Ferrous Sulfate (Ferrous Sulfate (Ec)) 325 mg BID PO Last administered on 10:10; Admin Dose 325 MG; Start 07/24/16 at 21:00 Acetaminophen/ Hydrocodone Bitart ([place] (5/325)) 1 tab Q4H PRN PO PAIN; Start 07/24/16 at 17:00 Insulin Glargine (Lantus) 6 unit DAILY@20 SC Last administered on 07/28/16 20: 15; Admin Dose 6 UNIT; Start 07/24/16 at 20:00 Isoniazid (Isoniazid) 300 mg DAILY PO Last administered on 07/29/16 10:10; Admin Dose 300 MG; Start 07/24/16 at 15:30 Nifedipine (Procardia Xl) 60 mg BID PO Last administered on 07/28/16 20:17; Admin Dose 60 MG; Start 07/24/16 at 21:00 Pyridoxine HCl (Vitamin B6) 50 mg DAILY PO Last administered on 07/29/16 10:10 ; Admin Dose 50 MG; Start 07/25/16 at 09:00 Rifampin (Rifampin) 600 mg DAILY PO Last administered on 07/29/16 10:10; Admin Dose 600 MG; Start 07/25/16 at 09:00 Pyrazinamide (Pyrazinamide) 1,500 mg TuThSa@20 PO Last administered on 20:27; Admin Dose 1,500 MG; Start 07/24/16 at 20:00 Ethambutol HCl (Myambutol) 1,200 mg TuThSa@20 PO Last administered on 20:25; Admin Dose 1,200 MG; Start 07/24/16 at 20:00 Miscellaneous Information 1 ea NOTE XX ; Start 07/24/16 at 16:00 Glucose (Glutose) 15 gm Q15M PRN PO DECREASED GLUCOSE; Start 07/24/16 at 16:00 Glucose (Glutose) 22.5 gm Q15M PRN PO DECREASED GLUCOSE; Start 07/24/16 at 16: 00 Dextrose (D50w Syringe) 25 ml Q15M PRN IV DECREASED GLUCOSE; Start 07/24/16 at 16:00 Dextrose (D50w Syringe) 50 ml Q15M PRN IV DECREASED GLUCOSE; Start 07/24/16 at 16:00 Glucagon (Glucagen) 1 mg Q15M PRN IM DECREASED GLUCOSE; Start 07/24/16 at 16:00 Glucose (Glutose) 15 gm Q15M PRN BUCCAL DECREASED GLUCOSE; Start 07/24/16 at 16 :00 Ondansetron HCl (Zofran Inj) 4 mg Q4 PRN IV nausea Last administered on 06:06; Admin Dose 4 MG; Start 07/24/16 at 17:00 Hydromorphone HCl (Dilaudid) 1 mg Q4 PRN IV pain Last administered on 23:16; Admin Dose 1 MG; Start 07/24/16 at 17:00 Metoclopramide HCl 5 mg 5 mg Q4H PRN IV NAUSEA Last administered on 07/26/16 10:05; Admin Dose 5 MG; Start 07/24/16 at 22:30 Ferric Sodium Gluconate Complex/ Sodium Chloride (Ferrlecit/NS) 110 ml @ 110 mls/hr Q24H IVPB Last administered on 07/28/16 17:05; Admin Dose 110 MLS/HR; Start 07/25/16 at 16:00; Stop 07/29/16 at 16:59 Diagnostic Test (Pha) (Accu-Chek) 1 ea 02 XX Last administered on 07/28/16 02: 54; Admin Dose 1 EA; Start 07/26/16 at 12:00 Clonidine HCl (Catapres-Tts 1 Patch) 1 patch Q7D TRANSDERM Last administered on 07/26/16 14:03; Admin Dose 1 PATCH; Start 07/26/16 at 13:00 Metoprolol Tartrate (Lopressor) 100 mg BID GTB Last administered on 07/28/16 20:12; Admin Dose 100 MG; Start 07/26/16 at 13:30 Clonidine HCl (Catapres-Tts 2 Patch) 1 patch Q7D TRANSDERM Last administered on 07/27/16 08:27; Admin Dose 1 PATCH; Start 07/27/16 at 07:00 Pantoprazole (Protonix Tab) 40 mg DAILY@06 PO Last administered on 07/29/16 05 :39; Admin Dose 40 MG; Start 07/28/16 at 06:00 Hydralazine HCl (Apresoline) 20 mg Q4 PRN IV ELEVATED BLOOD PRESSURE Last administered on 07/29/16 02:48; Admin Dose 20 MG; Start 07/28/16 at 02:00 Doxazosin Mesylate (Cardura) 2 mg HS PO Last administered on 07/28/16 20:13; Admin Dose 2 MG; Start 07/28/16 at 21:00 Polyethylene Glycol (Miralax) 17 gm DAILY PRN GTB CONSTIPATION Last administered on 07/28/16 20:22; Admin Dose 17 GM; Start 07/28/16 at 19:30 Lorazepam (Ativan) 1 mg Q4H PRN IV anxiety Last administered on 07/29/16 06:28 ; Admin Dose 1 MG; Start 07/29/16 at 06:30 CRIS BERNARD MD Jul 29, 2016 10:20
--- NOTE | 2016-07-29 12:22 | CONS ---
Date/Time of Note Date/Time of Note DATE: 07/29/16 TIME: 12:20 Assessment/Plan Assessment/Plan Additional Assessment/Plan Chest x-ray was reviewed from today which is showing improvement in aeration of the right lower lobe area. Assessment recommendations; next 1. Patient admitted for bleeding from prior VATS site on the right side. With interval resolution. 2. Recurrent pleural effusion status post recent VATS. Ultrasound of the chest is showing consolidation involving the right lower lobe without any significant pleural effusion. 3. History of coronary artery status post CABG surgery. 4. Cardio myopathy. 5. Diabetes. 6. Hypertension. Continue current treatment. Patient can be discharged home. Consultation Date/Type/Reason Admit Date/Time Jul 24, 2016 at 12:53 Initial Consult Date 07/25/16 Type of Consultation: Pulmonary Referring Provider: EVA COX MD 24 HR Interval Summary Free Text/Dictation Patient condition is stable. Denies any shortness of breath. Any orthopnea. Any chest pain, wheezing. Any cough or sputum production. General exam; elderly male, currently in no distress. Awake and alert. Exam/Review of Systems Vital Signs Vitals Vital Signs Date Time Temp Pulse Resp B/P Pulse Ox O2 Delivery O2 Flow Rate FiO2 07/29/16 08:48 98.0 70 20 118/78 98 07/28/16 04:00 Room Air 07/26/16 20:00 2.0 Intake and Output 07/28/16 07/28/16 07/29/16 14:59 22:59 06:59 Intake Total 1260 ml 200 ml Output Total 2800 ml 70 ml Balance -1540 ml 130 ml Exam HEENT examination; supple neck, no JVD. No lymphadenopathy. No thyromegaly. Pharynx is clear. No neck masses. Chest examination; diminished breath sounds right lower lobe otherwise clear. S1-S2 audible, no murmurs. Regular rhythm. There is a well-healed sternal scar. Abdomen examination; soft, nondistended. No organomegaly. Bowel sounds audible. Extremity exam; no peripheral edema. [employer] examination; no focal deficit. Results Result Diagram: 07/29/16 0920 07/29/16 0920 Results 24 hrs Laboratory Tests Test 07/28/16 16:52 07/28/16 20:10 07/29/16 02:27 07/29/16 07:59 Bedside Glucose 308 H 306 H 76 144 Test 07/29/16 09:20 07/29/16 12:02 White Blood Count 10.0 Red Blood Count 3.54 L Hemoglobin 10.9 L Hematocrit 32.4 L Mean Corpuscular Volume 91.5 Mean Corpuscular Hemoglobin 30.8 Mean Corpuscular Hemoglobin Concent 33.6 Red Cell Distribution Width 13.7 Platelet Count 178 Mean Platelet Volume 10.2 Neutrophils % 75.9 Lymphocytes % 9.6 L Monocytes % 11.5 H Eosinophils % 2.0 Basophils % 0.6 Nucleated Red Blood Cells % 0.6 H Neutrophils # 7.6 H Lymphocytes # 1.0 Monocytes # 1.2 H Eosinophils # 0.2 Basophils # 0.1 Nucleated Red Blood Cells # 0.1 H Sodium Level 134 L Potassium Level 4.8 Chloride Level 97 Carbon Dioxide Level 28 Anion Gap 14 Blood Urea Nitrogen 71 H Creatinine 6.67 H Glucose Level 164 Calcium Level 9.0 Phosphorus Level 4.5 Magnesium Level 2.4 Bedside Glucose 157 Medications Medications Current Medications Aspirin (Halfprin) 81 mg DAILY PO Last administered on 07/26/16 08:39; Admin Dose 81 MG; Start 07/25/16 at 09:00; Status Future Hold Atorvastatin Calcium (Lipitor) 10 mg QHS PO Last administered on 07/28/16 20: 12; Admin Dose 10 MG; Start 07/24/16 at 21:00 Benazepril HCl (Lotensin) 40 mg BID PO Last administered on 07/28/16 20:13; Admin Dose 40 MG; Start 07/24/16 at 21:00 Cholecalciferol (Vitamin D) 400 units DAILY PO Last administered on 07/29/16 10:10; Admin Dose 400 UNITS; Start 07/25/16 at 09:00 Famotidine (Pepcid) 20 mg DAILY PO Last administered on 07/29/16 10:10; Admin Dose 20 MG; Start 07/25/16 at 09:00 Ferrous Sulfate (Ferrous Sulfate (Ec)) 325 mg BID PO Last administered on 10:10; Admin Dose 325 MG; Start 07/24/16 at 21:00 Acetaminophen/ Hydrocodone Bitart ([place] (5/325)) 1 tab Q4H PRN PO PAIN; Start 07/24/16 at 17:00 Insulin Glargine (Lantus) 6 unit DAILY@20 SC Last administered on 07/28/16 20: 15; Admin Dose 6 UNIT; Start 07/24/16 at 20:00 Isoniazid (Isoniazid) 300 mg DAILY PO Last administered on 07/29/16 10:10; Admin Dose 300 MG; Start 07/24/16 at 15:30 Nifedipine (Procardia Xl) 60 mg BID PO Last administered on 07/28/16 20:17; Admin Dose 60 MG; Start 07/24/16 at 21:00 Pyridoxine HCl (Vitamin B6) 50 mg DAILY PO Last administered on 07/29/16 10:10 ; Admin Dose 50 MG; Start 07/25/16 at 09:00 Rifampin (Rifampin) 600 mg DAILY PO Last administered on 07/29/16 10:10; Admin Dose 600 MG; Start 07/25/16 at 09:00 Pyrazinamide (Pyrazinamide) 1,500 mg TuThSa@20 PO Last administered on 20:27; Admin Dose 1,500 MG; Start 07/24/16 at 20:00 Ethambutol HCl (Myambutol) 1,200 mg TuThSa@20 PO Last administered on 20:25; Admin Dose 1,200 MG; Start 07/24/16 at 20:00 Miscellaneous Information 1 ea NOTE XX ; Start 07/24/16 at 16:00 Glucose (Glutose) 15 gm Q15M PRN PO DECREASED GLUCOSE; Start 07/24/16 at 16:00 Glucose (Glutose) 22.5 gm Q15M PRN PO DECREASED GLUCOSE; Start 07/24/16 at 16: 00 Dextrose (D50w Syringe) 25 ml Q15M PRN IV DECREASED GLUCOSE; Start 07/24/16 at 16:00 Dextrose (D50w Syringe) 50 ml Q15M PRN IV DECREASED GLUCOSE; Start 07/24/16 at 16:00 Glucagon (Glucagen) 1 mg Q15M PRN IM DECREASED GLUCOSE; Start 07/24/16 at 16:00 Glucose (Glutose) 15 gm Q15M PRN BUCCAL DECREASED GLUCOSE; Start 07/24/16 at 16 :00 Ondansetron HCl (Zofran Inj) 4 mg Q4 PRN IV nausea Last administered on 06:06; Admin Dose 4 MG; Start 07/24/16 at 17:00 Hydromorphone HCl (Dilaudid) 1 mg Q4 PRN IV pain Last administered on 23:16; Admin Dose 1 MG; Start 07/24/16 at 17:00 Metoclopramide HCl 5 mg 5 mg Q4H PRN IV NAUSEA Last administered on 07/26/16 10:05; Admin Dose 5 MG; Start 07/24/16 at 22:30 Ferric Sodium Gluconate Complex/ Sodium Chloride (Ferrlecit/NS) 110 ml @ 110 mls/hr Q24H IVPB Last administered on 07/28/16 17:05; Admin Dose 110 MLS/HR; Start 07/25/16 at 16:00; Stop 07/29/16 at 16:59 Diagnostic Test (Pha) (Accu-Chek) 1 ea 02 XX Last administered on 07/28/16 02: 54; Admin Dose 1 EA; Start 07/26/16 at 12:00 Clonidine HCl (Catapres-Tts 1 Patch) 1 patch Q7D TRANSDERM Last administered on 07/26/16 14:03; Admin Dose 1 PATCH; Start 07/26/16 at 13:00 Metoprolol Tartrate (Lopressor) 100 mg BID GTB Last administered on 07/28/16 20:12; Admin Dose 100 MG; Start 07/26/16 at 13:30 Clonidine HCl (Catapres-Tts 2 Patch) 1 patch Q7D TRANSDERM Last administered on 07/27/16 08:27; Admin Dose 1 PATCH; Start 07/27/16 at 07:00 Pantoprazole (Protonix Tab) 40 mg DAILY@06 PO Last administered on 07/29/16 05 :39; Admin Dose 40 MG; Start 07/28/16 at 06:00 Hydralazine HCl (Apresoline) 20 mg Q4 PRN IV ELEVATED BLOOD PRESSURE Last administered on 07/29/16 02:48; Admin Dose 20 MG; Start 07/28/16 at 02:00 Doxazosin Mesylate (Cardura) 2 mg HS PO Last administered on 07/28/16 20:13; Admin Dose 2 MG; Start 07/28/16 at 21:00 Polyethylene Glycol (Miralax) 17 gm DAILY PRN GTB CONSTIPATION Last administered on 07/28/16 20:22; Admin Dose 17 GM; Start 07/28/16 at 19:30 Lorazepam (Ativan) 1 mg Q4H PRN IV anxiety Last administered on 07/29/16 06:28 ; Admin Dose 1 MG; Start 07/29/16 at 06:30 BOONE POLO Jul 29, 2016 12:22
--- NOTE | 2016-07-29 15:18 | CONS ---
Date/Time of Note Date/Time of Note DATE: 07/29/16 TIME: 15:14 Assessment/Plan Assessment/Plan Chief Complaint/Hosp Course 60 year old male with ESRD, DM, HTN, CAD, with hemoptysis, right former chest tube site bleeding, resolved, with anemia of acute blood loss with bleeding from the right femoral catheter as well as chest tube site on admission. - s/p blood transfusion with dialysis for Hgb 6.8. Continue to monitor H/H and transfuse if hemoglobin < 8. now stable at 11 - Agree with holding antiplatelets until deemed safe to resume and once hgb stable - s/p IV iron given likely iron deficiency anemia due to blood loss, though adequate iron panel, ferritin, B12/folate, with normal retic, LDH, suggesting no signs of hemolysis and epo level (to see if would benefit from procrit given ESRD) is still pending. - given small effusion agree that VATS is not necessary at this time -ok for discharge from hematology standpoint -will sign off at this time Problems: Consultation Date/Type/Reason Admit Date/Time Jul 24, 2016 at 12:53 Initial Consult Date 07/25/16 Type of Consultation: Pulmonary Reason for Consultation bleeding/ anemia Referring Provider: EVA COX MD 24 HR Interval Summary Free Text/Dictation last CXR showed a small pleural effusion. pt continues on HD Exam/Review of Systems Vital Signs Vitals Vital Signs Date Time Temp Pulse Resp B/P Pulse Ox O2 Delivery O2 Flow Rate FiO2 07/29/16 12:41 97.8 70 20 135/65 99 07/28/16 04:00 Room Air 07/26/16 20:00 2.0 Intake and Output 07/28/16 07/28/16 07/29/16 15:00 23:00 07:00 Intake Total 1260 ml 200 ml Output Total 2800 ml 70 ml Balance -1540 ml 130 ml Exam Constitutional: alert, oriented Psych: no complaints Head: atraumatic, normocephalic Eyes: nl conjunctiva ENMT: nl external ears & nose Neck: supple Respiratory: diminished breath sounds Cardiovascular: nl pulses, regular rate and rhythm Gastrointestinal: soft Musculoskeletal: nl extremities to inspection Results Result Diagram: 07/29/16 0920 07/29/16 0920 Results 24 hrs Laboratory Tests Test 07/28/16 16:52 07/28/16 20:10 07/29/16 02:27 07/29/16 07:59 Bedside Glucose 308 H 306 H 76 144 Test 07/29/16 09:20 07/29/16 12:02 White Blood Count 10.0 Red Blood Count 3.54 L Hemoglobin 10.9 L Hematocrit 32.4 L Mean Corpuscular Volume 91.5 Mean Corpuscular Hemoglobin 30.8 Mean Corpuscular Hemoglobin Concent 33.6 Red Cell Distribution Width 13.7 Platelet Count 178 Mean Platelet Volume 10.2 Neutrophils % 75.9 Lymphocytes % 9.6 L Monocytes % 11.5 H Eosinophils % 2.0 Basophils % 0.6 Nucleated Red Blood Cells % 0.6 H Neutrophils # 7.6 H Lymphocytes # 1.0 Monocytes # 1.2 H Eosinophils # 0.2 Basophils # 0.1 Nucleated Red Blood Cells # 0.1 H Sodium Level 134 L Potassium Level 4.8 Chloride Level 97 Carbon Dioxide Level 28 Anion Gap 14 Blood Urea Nitrogen 71 H Creatinine 6.67 H Glucose Level 164 Calcium Level 9.0 Phosphorus Level 4.5 Magnesium Level 2.4 Bedside Glucose 157 Medications Medications Current Medications Aspirin (Halfprin) 81 mg DAILY PO Last administered on 07/26/16 08:39; Admin Dose 81 MG; Start 07/25/16 at 09:00; Status Future Hold Atorvastatin Calcium (Lipitor) 10 mg QHS PO Last administered on 07/28/16 20: 12; Admin Dose 10 MG; Start 07/24/16 at 21:00 Benazepril HCl (Lotensin) 40 mg BID PO Last administered on 07/28/16 20:13; Admin Dose 40 MG; Start 07/24/16 at 21:00 Cholecalciferol (Vitamin D) 400 units DAILY PO Last administered on 07/29/16 10:10; Admin Dose 400 UNITS; Start 07/25/16 at 09:00 Famotidine (Pepcid) 20 mg DAILY PO Last administered on 07/29/16 10:10; Admin Dose 20 MG; Start 07/25/16 at 09:00 Ferrous Sulfate (Ferrous Sulfate (Ec)) 325 mg BID PO Last administered on 10:10; Admin Dose 325 MG; Start 07/24/16 at 21:00 Acetaminophen/ Hydrocodone Bitart ([place] (5/325)) 1 tab Q4H PRN PO PAIN; Start 07/24/16 at 17:00 Insulin Glargine (Lantus) 6 unit DAILY@20 SC Last administered on 07/28/16 20: 15; Admin Dose 6 UNIT; Start 07/24/16 at 20:00 Isoniazid (Isoniazid) 300 mg DAILY PO Last administered on 07/29/16 10:10; Admin Dose 300 MG; Start 07/24/16 at 15:30 Nifedipine (Procardia Xl) 60 mg BID PO Last administered on 07/28/16 20:17; Admin Dose 60 MG; Start 07/24/16 at 21:00 Pyridoxine HCl (Vitamin B6) 50 mg DAILY PO Last administered on 07/29/16 10:10 ; Admin Dose 50 MG; Start 07/25/16 at 09:00 Rifampin (Rifampin) 600 mg DAILY PO Last administered on 07/29/16 10:10; Admin Dose 600 MG; Start 07/25/16 at 09:00 Pyrazinamide (Pyrazinamide) 1,500 mg TuThSa@20 PO Last administered on 20:27; Admin Dose 1,500 MG; Start 07/24/16 at 20:00 Ethambutol HCl (Myambutol) 1,200 mg TuThSa@20 PO Last administered on 20:25; Admin Dose 1,200 MG; Start 07/24/16 at 20:00 Miscellaneous Information 1 ea NOTE XX ; Start 07/24/16 at 16:00 Glucose (Glutose) 15 gm Q15M PRN PO DECREASED GLUCOSE; Start 07/24/16 at 16:00 Glucose (Glutose) 22.5 gm Q15M PRN PO DECREASED GLUCOSE; Start 07/24/16 at 16: 00 Dextrose (D50w Syringe) 25 ml Q15M PRN IV DECREASED GLUCOSE; Start 07/24/16 at 16:00 Dextrose (D50w Syringe) 50 ml Q15M PRN IV DECREASED GLUCOSE; Start 07/24/16 at 16:00 Glucagon (Glucagen) 1 mg Q15M PRN IM DECREASED GLUCOSE; Start 07/24/16 at 16:00 Glucose (Glutose) 15 gm Q15M PRN BUCCAL DECREASED GLUCOSE; Start 07/24/16 at 16 :00 Ondansetron HCl (Zofran Inj) 4 mg Q4 PRN IV nausea Last administered on 06:06; Admin Dose 4 MG; Start 07/24/16 at 17:00 Hydromorphone HCl (Dilaudid) 1 mg Q4 PRN IV pain Last administered on 23:16; Admin Dose 1 MG; Start 07/24/16 at 17:00 Metoclopramide HCl 5 mg 5 mg Q4H PRN IV NAUSEA Last administered on 07/26/16 10:05; Admin Dose 5 MG; Start 07/24/16 at 22:30 Ferric Sodium Gluconate Complex/ Sodium Chloride (Ferrlecit/NS) 110 ml @ 110 mls/hr Q24H IVPB Last administered on 07/28/16 17:05; Admin Dose 110 MLS/HR; Start 07/25/16 at 16:00; Stop 07/29/16 at 16:59 Diagnostic Test (Pha) (Accu-Chek) 1 ea 02 XX Last administered on 07/28/16 02: 54; Admin Dose 1 EA; Start 07/26/16 at 12:00 Clonidine HCl (Catapres-Tts 1 Patch) 1 patch Q7D TRANSDERM Last administered on 07/26/16 14:03; Admin Dose 1 PATCH; Start 07/26/16 at 13:00 Metoprolol Tartrate (Lopressor) 100 mg BID GTB Last administered on 07/28/16 20:12; Admin Dose 100 MG; Start 07/26/16 at 13:30 Clonidine HCl (Catapres-Tts 2 Patch) 1 patch Q7D TRANSDERM Last administered on 07/27/16 08:27; Admin Dose 1 PATCH; Start 07/27/16 at 07:00 Pantoprazole (Protonix Tab) 40 mg DAILY@06 PO Last administered on 07/29/16 05 :39; Admin Dose 40 MG; Start 07/28/16 at 06:00 Hydralazine HCl (Apresoline) 20 mg Q4 PRN IV ELEVATED BLOOD PRESSURE Last administered on 07/29/16 02:48; Admin Dose 20 MG; Start 07/28/16 at 02:00 Doxazosin Mesylate (Cardura) 2 mg HS PO Last administered on 07/28/16 20:13; Admin Dose 2 MG; Start 07/28/16 at 21:00 Polyethylene Glycol (Miralax) 17 gm DAILY PRN GTB CONSTIPATION Last administered on 07/28/16 20:22; Admin Dose 17 GM; Start 07/28/16 at 19:30 Lorazepam (Ativan) 1 mg Q4H PRN IV anxiety Last administered on 07/29/16 06:28 ; Admin Dose 1 MG; Start 07/29/16 at 06:30 ALESSANDRO MORA M.D. Jul 29, 2016 15:18
[2016-07-29] MEDS: SOD FERRIC GLUC COMPLX 125 MG in SOD CHLORIDE 0.9% 100 ML IVPB SCH (16:04)
--- NOTE | 2016-07-29 16:20 | PN ---
Date/Time of Note Date/Time of Note DATE: 07/29/16 TIME: 16:19 Assessment/Plan VTE Prophylaxis VTE Prophylaxis Intervention: SCD's Lines/Catheters IV C[facility]ter Type (from [facility] Central Line Central line still needed: Yes Urinary Cath still in place: No Assessment/Plan Chief Complaint/Hosp Course Assessment and plan: - Recurrent right pleural effusion with possible hemothorax, plan for VATS, Plavix is on hold. -Hemoptysis, resolved. Dr. Dale is following in pulmonology consultation. Dr. Tucker is following an infection disease consultation. -Right former chest tube site bleeding, resolved. Dr. Martinez is following in thoracic surgery consultation. -Anemia of acute blood loss, patient had bleeding from the right femoral catheter as well as chest tube site on admission, status post blood transfusion , continue to monitor hemoglobin and hematocrit. Dr. Martinez is following in hematology consultation. - Quantiferon Gold positive, prior Hx of TB per department of health, s/p treatment in 1998, continue RIPA. - End-stage renal disease, continue hemodialysis. Dr. Saunders is following in nephrology consultation. - Diabetes mellitus type 2, continue Lantus, pre-meal NovoLog and NovoLog per mild algorithm sliding scale. - Hypertension. Dr. De Santiago is following and cardiology consultation. Continue benazepril metoprolol hydralazine Procardia - Coronary artery disease, status post coronary artery bypass graft, s/p percutaneous transluminal coronary angioplasty and stent placement to left main and left anterior descending in 2014. - Permanent pacemaker. No acute issues. - Dyslipidemia. Continue Lipitor. - Constipation, start patient on bowel regimen. Further recommendations based on clinical course. Plan of care discussed with Dr. Price. Problems: Exam/Review of Systems Vital Signs Vitals Vital Signs Date Time Temp Pulse Resp B/P Pulse Ox O2 Delivery O2 Flow Rate FiO2 07/29/16 15:43 97.8 70 20 157/77 98 07/28/16 04:00 Room Air 07/26/16 20:00 2.0 Intake and Output 07/28/16 07/28/16 07/29/16 15:00 23:00 07:00 Intake Total 1260 ml 200 ml Output Total 2800 ml 70 ml Balance -1540 ml 130 ml Exam Constitutional: alert, oriented Psych: no complaints Head: atraumatic, normocephalic ENMT: nl external ears & nose Neck: non-tender, supple Respiratory: clear to auscultation, normal air movement Cardiovascular: other (Left chest permanent pacemaker), regular rate and rhythm Gastrointestinal: bowel sounds, soft Extremities: normal pulses Neurological: [employer] II-XII intact Results Result Diagram: 07/29/1620 07/29/16 0920 Results 24 hrs Laboratory Tests Test 07/28/16 16:52 07/28/16 20:10 07/29/16 02:27 07/29/16 07:59 Bedside Glucose 308 H 306 H 76 144 Test 07/29/16 09:20 07/29/16 12:02 White Blood Count 10.0 Red Blood Count 3.54 L Hemoglobin 10.9 L Hematocrit 32.4 L Mean Corpuscular Volume 91.5 Mean Corpuscular Hemoglobin 30.8 Mean Corpuscular Hemoglobin Concent 33.6 Red Cell Distribution Width 13.7 Platelet Count 178 Mean Platelet Volume 10.2 Neutrophils % 75.9 Lymphocytes % 9.6 L Monocytes % 11.5 H Eosinophils % 2.0 Basophils % 0.6 Nucleated Red Blood Cells % 0.6 H Neutrophils # 7.6 H Lymphocytes # 1.0 Monocytes # 1.2 H Eosinophils # 0.2 Basophils # 0.1 Nucleated Red Blood Cells # 0.1 H Sodium Level 134 L Potassium Level 4.8 Chloride Level 97 Carbon Dioxide Level 28 Anion Gap 14 Blood Urea Nitrogen 71 H Creatinine 6.67 H Glucose Level 164 Calcium Level 9.0 Phosphorus Level 4.5 Magnesium Level 2.4 Bedside Glucose 157 Medications Medications Current Medications Aspirin (Halfprin) 81 mg DAILY PO Last administered on 07/26/16 08:39; Admin Dose 81 MG; Start 07/25/16 at 09:00; Status Future Hold Atorvastatin Calcium (Lipitor) 10 mg QHS PO Last administered on 07/28/16 20: 12; Admin Dose 10 MG; Start 07/24/16 at 21:00 Benazepril HCl (Lotensin) 40 mg BID PO Last administered on 07/28/16 20:13; Admin Dose 40 MG; Start 07/24/16 at 21:00 Cholecalciferol (Vitamin D) 400 units DAILY PO Last administered on 07/29/16 10:10; Admin Dose 400 UNITS; Start 07/25/16 at 09:00 Famotidine (Pepcid) 20 mg DAILY PO Last administered on 07/29/16 10:10; Admin Dose 20 MG; Start 07/25/16 at 09:00 Ferrous Sulfate (Ferrous Sulfate (Ec)) 325 mg BID PO Last administered on 10:10; Admin Dose 325 MG; Start 07/24/16 at 21:00 Acetaminophen/ Hydrocodone Bitart ([place] (5/325)) 1 tab Q4H PRN PO PAIN; Start 07/24/16 at 17:00 Insulin Glargine (Lantus) 6 unit DAILY@20 SC Last administered on 07/28/16 20: 15; Admin Dose 6 UNIT; Start 07/24/16 at 20:00 Isoniazid (Isoniazid) 300 mg DAILY PO Last administered on 07/29/16 10:10; Admin Dose 300 MG; Start 07/24/16 at 15:30 Nifedipine (Procardia Xl) 60 mg BID PO Last administered on 07/28/16 20:17; Admin Dose 60 MG; Start 07/24/16 at 21:00 Pyridoxine HCl (Vitamin B6) 50 mg DAILY PO Last administered on 07/29/16 10:10 ; Admin Dose 50 MG; Start 07/25/16 at 09:00 Rifampin (Rifampin) 600 mg DAILY PO Last administered on 07/29/16 10:10; Admin Dose 600 MG; Start 07/25/16 at 09:00 Pyrazinamide (Pyrazinamide) 1,500 mg TuThSa@20 PO Last administered on 20:27; Admin Dose 1,500 MG; Start 07/24/16 at 20:00 Ethambutol HCl (Myambutol) 1,200 mg TuThSa@20 PO Last administered on 20:25; Admin Dose 1,200 MG; Start 07/24/16 at 20:00 Miscellaneous Information 1 ea NOTE XX ; Start 07/24/16 at 16:00 Glucose (Glutose) 15 gm Q15M PRN PO DECREASED GLUCOSE; Start 07/24/16 at 16:00 Glucose (Glutose) 22.5 gm Q15M PRN PO DECREASED GLUCOSE; Start 07/24/16 at 16: 00 Dextrose (D50w Syringe) 25 ml Q15M PRN IV DECREASED GLUCOSE; Start 07/24/16 at 16:00 Dextrose (D50w Syringe) 50 ml Q15M PRN IV DECREASED GLUCOSE; Start 07/24/16 at 16:00 Glucagon (Glucagen) 1 mg Q15M PRN IM DECREASED GLUCOSE; Start 07/24/16 at 16:00 Glucose (Glutose) 15 gm Q15M PRN BUCCAL DECREASED GLUCOSE; Start 07/24/16 at 16 :00 Ondansetron HCl (Zofran Inj) 4 mg Q4 PRN IV nausea Last administered on 06:06; Admin Dose 4 MG; Start 07/24/16 at 17:00 Hydromorphone HCl (Dilaudid) 1 mg Q4 PRN IV pain Last administered on 23:16; Admin Dose 1 MG; Start 07/24/16 at 17:00 Metoclopramide HCl 5 mg 5 mg Q4H PRN IV NAUSEA Last administered on 07/26/16 10:05; Admin Dose 5 MG; Start 07/24/16 at 22:30 Ferric Sodium Gluconate Complex/ Sodium Chloride (Ferrlecit/NS) 110 ml @ 110 mls/hr Q24H IVPB Last administered on 07/29/16 16:04; Admin Dose 110 MLS/HR; Start 07/25/16 at 16:00; Stop 07/29/16 at 16:59 Diagnostic Test (Pha) (Accu-Chek) 1 ea 02 XX Last administered on 07/28/16 02: 54; Admin Dose 1 EA; Start 07/26/16 at 12:00 Clonidine HCl (Catapres-Tts 1 Patch) 1 patch Q7D TRANSDERM Last administered on 07/26/16 14:03; Admin Dose 1 PATCH; Start 07/26/16 at 13:00 Metoprolol Tartrate (Lopressor) 100 mg BID GTB Last administered on 07/28/16 20:12; Admin Dose 100 MG; Start 07/26/16 at 13:30 Clonidine HCl (Catapres-Tts 2 Patch) 1 patch Q7D TRANSDERM Last administered on 07/27/16 08:27; Admin Dose 1 PATCH; Start 07/27/16 at 07:00 Pantoprazole (Protonix Tab) 40 mg DAILY@06 PO Last administered on 07/29/16 05 :39; Admin Dose 40 MG; Start 07/28/16 at 06:00 Hydralazine HCl (Apresoline) 20 mg Q4 PRN IV ELEVATED BLOOD PRESSURE Last administered on 07/29/16 02:48; Admin Dose 20 MG; Start 07/28/16 at 02:00 Doxazosin Mesylate (Cardura) 2 mg HS PO Last administered on 07/28/16 20:13; Admin Dose 2 MG; Start 07/28/16 at 21:00 Polyethylene Glycol (Miralax) 17 gm DAILY PRN GTB CONSTIPATION Last administered on 07/28/16 20:22; Admin Dose 17 GM; Start 07/28/16 at 19:30 Lorazepam (Ativan) 1 mg Q4H PRN IV anxiety Last administered on 07/29/16 06:28 ; Admin Dose 1 MG; Start 07/29/16 at 06:30 CECILIA DAMICO Jul 29, 2016 16:20
--- NOTE | 2016-07-29 18:03 | PN ---
Date/Time of Note Date/Time of Note DATE: 07/29/16 TIME: 18:02 Assessment/Plan Lines/Catheters IV Catheter Type (from Nrsg): Central Line Jonas in Place (from Nrsg): No Assessment/Plan Chief Complaint/Hosp Course IMPRESSION: Right chest tube site bleeding, which has now subsided completely. Hgb stable Would monitor the hemoglobin levels and stop the antiplatelet. plan for VATS after the pt has been off of plavix for 5 days if there is significant effusion will repeat CT scan Problems: Subjective 24 Hr Interval Summary Constitutional: improved Pain Control: mild Exam/Review of Systems Vital Signs Vitals Vital Signs Date Time Temp Pulse Resp B/P Pulse Ox O2 Delivery O2 Flow Rate FiO2 07/29/16 16:22 69 07/29/16 15:43 97.8 20 157/77 98 07/28/16 04:00 Room Air 07/26/16 20:00 2.0 Intake and Output 07/28/16 07/28/16 07/29/16 15:00 23:00 07:00 Intake Total 1260 ml 200 ml Output Total 2800 ml 70 ml Balance -1540 ml 130 ml Exam ENMT: mucosa pink and moist, nl external ears & nose, nl lips & teeth, nl nasal mucosa & septum Neck: non-tender, supple Respiratory: clear to auscultation, normal air movement Cardiovascular: nl pulses, regular rate and rhythm Gastrointestinal: nl liver, spleen, non-tender, soft Results Result Diagram: 07/29/16 0920 07/29/16 0920 LILIA FELIZ MD Jul 29, 2016 18:03
--- NOTE | 2016-07-29 18:41 | CONS ---
Date/Time of Note Date/Time of Note DATE: 07/29/16 TIME: 18:40 Assessment/Plan Assessment/Plan Chief Complaint/Hosp Course IMPRESSION: 1. Recurrent pleural effusions. 2. Lung infiltrate. 3. chronic lung disease. 4. Hypertension. 5. Diabetes mellitus. 6. End-stage renal disease. 7. anemia. 8. cad. 9. Leukocytosis. 10. ashd 11. s/p vats. 12. The patient on anti-tuberculosis treatment. 13. 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 PLAN HD refuse by pt for am Problems: Consultation Date/Type/Reason Admit Date/Time Jul 24, 2016 at 12:53 Initial Consult Date 07/25/16 Type of Consultation: renal Referring Provider: EVA COX MD 24 HR Interval Summary Constitutional: other (pain +) Exam/Review of Systems Vital Signs Vitals Vital Signs Date Time Temp Pulse Resp B/P Pulse Ox O2 Delivery O2 Flow Rate FiO2 07/29/16 16:22 69 07/29/16 15:43 97.8 20 157/77 98 07/28/16 04:00 Room Air 07/26/16 20:00 2.0 Intake and Output 07/28/16 07/28/16 07/29/16 15:00 23:00 07:00 Intake Total 1260 ml 200 ml Output Total 2800 ml 70 ml Balance -1540 ml 130 ml Exam Respiratory: diminished breath sounds Cardiovascular: regular rate and rhythm Gastrointestinal: soft Musculoskeletal: nl extremities to inspection Results Result Diagram: 07/29/16 0920 07/29/16 0920 Results 24 hrs Laboratory Tests Test 07/28/16 20:10 07/29/16 02:27 07/29/16 07:59 07/29/16 09:20 Bedside Glucose 306 H 76 144 White Blood Count 10.0 Red Blood Count 3.54 L Hemoglobin 10.9 L Hematocrit 32.4 L Mean Corpuscular Volume 91.5 Mean Corpuscular Hemoglobin 30.8 Mean Corpuscular Hemoglobin Concent 33.6 Red Cell Distribution Width 13.7 Platelet Count 178 Mean Platelet Volume 10.2 Neutrophils % 75.9 Lymphocytes % 9.6 L Monocytes % 11.5 H Eosinophils % 2.0 Basophils % 0.6 Nucleated Red Blood Cells % 0.6 H Neutrophils # 7.6 H Lymphocytes # 1.0 Monocytes # 1.2 H Eosinophils # 0.2 Basophils # 0.1 Nucleated Red Blood Cells # 0.1 H Sodium Level 134 L Potassium Level 4.8 Chloride Level 97 Carbon Dioxide Level 28 Anion Gap 14 Blood Urea Nitrogen 71 H Creatinine 6.67 H Glucose Level 164 Calcium Level 9.0 Phosphorus Level 4.5 Magnesium Level 2.4 Test 07/29/16 12:02 Bedside Glucose 157 Medications Medications Current Medications Aspirin (Halfprin) 81 mg DAILY PO Last administered on 07/26/16 08:39; Admin Dose 81 MG; Start 07/25/16 at 09:00; Status Future Hold Atorvastatin Calcium (Lipitor) 10 mg QHS PO Last administered on 07/28/16 20: 12; Admin Dose 10 MG; Start 07/24/16 at 21:00 Benazepril HCl (Lotensin) 40 mg BID PO Last administered on 07/28/16 20:13; Admin Dose 40 MG; Start 07/24/16 at 21:00 Cholecalciferol (Vitamin D) 400 units DAILY PO Last administered on 07/29/16 10:10; Admin Dose 400 UNITS; Start 07/25/16 at 09:00 Famotidine (Pepcid) 20 mg DAILY PO Last administered on 07/29/16 10:10; Admin Dose 20 MG; Start 07/25/16 at 09:00 Ferrous Sulfate (Ferrous Sulfate (Ec)) 325 mg BID PO Last administered on 10:10; Admin Dose 325 MG; Start 07/24/16 at 21:00 Acetaminophen/ Hydrocodone Bitart ([place] (5/325)) 1 tab Q4H PRN PO PAIN; Start 07/24/16 at 17:00 Insulin Glargine (Lantus) 6 unit DAILY@20 SC Last administered on 07/28/16 20: 15; Admin Dose 6 UNIT; Start 07/24/16 at 20:00 Isoniazid (Isoniazid) 300 mg DAILY PO Last administered on 07/29/16 10:10; Admin Dose 300 MG; Start 07/24/16 at 15:30 Nifedipine (Procardia Xl) 60 mg BID PO Last administered on 07/28/16 20:17; Admin Dose 60 MG; Start 07/24/16 at 21:00 Pyridoxine HCl (Vitamin B6) 50 mg DAILY PO Last administered on 07/29/16 10:10 ; Admin Dose 50 MG; Start 07/25/16 at 09:00 Rifampin (Rifampin) 600 mg DAILY PO Last administered on 07/29/16 10:10; Admin Dose 600 MG; Start 07/25/16 at 09:00 Pyrazinamide (Pyrazinamide) 1,500 mg TuThSa@20 PO Last administered on 20:27; Admin Dose 1,500 MG; Start 07/24/16 at 20:00 Ethambutol HCl (Myambutol) 1,200 mg TuThSa@20 PO Last administered on 20:25; Admin Dose 1,200 MG; Start 07/24/16 at 20:00 Miscellaneous Information 1 ea NOTE XX ; Start 07/24/16 at 16:00 Glucose (Glutose) 15 gm Q15M PRN PO DECREASED GLUCOSE; Start 07/24/16 at 16:00 Glucose (Glutose) 22.5 gm Q15M PRN PO DECREASED GLUCOSE; Start 07/24/16 at 16: 00 Dextrose (D50w Syringe) 25 ml Q15M PRN IV DECREASED GLUCOSE; Start 07/24/16 at 16:00 Dextrose (D50w Syringe) 50 ml Q15M PRN IV DECREASED GLUCOSE; Start 07/24/16 at 16:00 Glucagon (Glucagen) 1 mg Q15M PRN IM DECREASED GLUCOSE; Start 07/24/16 at 16:00 Glucose (Glutose) 15 gm Q15M PRN BUCCAL DECREASED GLUCOSE; Start 07/24/16 at 16 :00 Ondansetron HCl (Zofran Inj) 4 mg Q4 PRN IV nausea Last administered on 06:06; Admin Dose 4 MG; Start 07/24/16 at 17:00 Hydromorphone HCl (Dilaudid) 1 mg Q4 PRN IV pain Last administered on 23:16; Admin Dose 1 MG; Start 07/24/16 at 17:00 Metoclopramide HCl (Reglan) 5 mg Q4H PRN IV NAUSEA Last administered on 10:05; Admin Dose 5 MG; Start 07/24/16 at 22:30 Diagnostic Test (Pha) (Accu-Chek) 1 ea 02 XX Last administered on 07/28/16 02: 54; Admin Dose 1 EA; Start 07/26/16 at 12:00 Clonidine HCl (Catapres-Tts 1 Patch) 1 patch Q7D TRANSDERM Last administered on 07/26/16 14:03; Admin Dose 1 PATCH; Start 07/26/16 at 13:00 Metoprolol Tartrate (Lopressor) 100 mg BID GTB Last administered on 07/28/16 20:12; Admin Dose 100 MG; Start 07/26/16 at 13:30 Clonidine HCl (Catapres-Tts 2 Patch) 1 patch Q7D TRANSDERM Last administered on 07/27/16 08:27; Admin Dose 1 PATCH; Start 07/27/16 at 07:00 Pantoprazole (Protonix Tab) 40 mg DAILY@06 PO Last administered on 07/29/16 05 :39; Admin Dose 40 MG; Start 07/28/16 at 06:00 Hydralazine HCl (Apresoline) 20 mg Q4 PRN IV ELEVATED BLOOD PRESSURE Last administered on 07/29/16 02:48; Admin Dose 20 MG; Start 07/28/16 at 02:00 Doxazosin Mesylate (Cardura) 2 mg HS PO Last administered on 07/28/16 20:13; Admin Dose 2 MG; Start 07/28/16 at 21:00 Polyethylene Glycol (Miralax) 17 gm DAILY PRN GTB CONSTIPATION Last administered on 07/28/16 20:22; Admin Dose 17 GM; Start 07/28/16 at 19:30 Lorazepam (Ativan) 1 mg Q4H PRN IV anxiety Last administered on 07/29/16 06:28 ; Admin Dose 1 MG; Start 07/29/16 at 06:30 PAOLA MOODY MD Jul 29, 2016 18:41
[2016-07-29] MEDS: ETHAMBUTOL 400 MG TAB PO SCH (20:00)
[2016-07-29] MEDS: PYRAZINAMIDE 500 MG TAB PO SCH (20:00)
[2016-07-29] MEDS: DOXAZOSIN 2 MG TAB PO SCH (21:00)
[2016-07-29] MEDS: ATORVASTATIN 10 MG TAB PO SCH (21:00)
[2016-07-29] MEDS: INSULIN GLARGINE [LANtus] 3 ML PEN SC SCH (21:36)
[2016-07-30] VITALS (11 sets, daily range): BP systolic 127–175; BP diastolic 62–81; PULSE 69; RESP 17–18
[2016-07-30] MEDS: ACCUCHECK 2 AM XX SCH (02:00)
[2016-07-30] MEDS: hydrALAzine 20 MG INJ IV PRN (02:15)
--- NOTE | 2016-07-30 03:56 | RADRPT ---
PROCEDURE: CT Chest without contrast. CLINICAL INDICATION: Pleural effusion. TECHNIQUE: CT scan of the chest without contrast was performed on a multidetector high-resolution CT scanner. Coronal and sagittal reformatted images were obtained from the axial source images. The total exam CTDI equals 4.90 mGy and the total exam DLP equals 193.27 mGy-cm. COMPARISON: 06/14/2016 CT examination of the chest. FINDINGS: ABNORMAL RESULTS: FINDINGS CONCERNING FOR ACTIVE TUBERCULOSIS. Previously seen right pleural effusion examination dated 06/14/2016 now represents complex empyemas in the posterior right mid lung and right lung base, containing new calcification of the visceral an d parietal pleura and new relatively dense tumefactive loculated components. Small bubbles of air ar e seen within the dominant loculated empyema. Calcification of the visceral and parietal pleura suggests a tuberculous empyema, typically presenti ng with active tuberculosis. Complex empyemas overall measure 16.6 cm in the cranial caudad dimension by 11.9 cm in the AP dimens ion by 8.7 cm in the transverse dimension. 35 x 23 x 14 mm lesion in the anterior inferior right upper lobe with possible cavitation is also co ncerning for active tuberculosis. Nonspecific left upper lung fibrotic changes versus scar, with nodular features. Dependent atelectas is in the right lung secondary to mass effect from the large complex empyemas. The mediastinum is unremarkable without evidence for mass or lymphadenopathy. The vascular structur es of the mediastinum are normal in course and caliber. Aortic vascular calcifications and coronary artery calcifications are present. The heart size is enlarged, without evidence for pericardial th ickening or effusion. The axillary regions, subpectoral regions, and supraclavicular regions are all unremarkable. The lam rrounding chest wall is unremarkable. Imaging obtained through the upper abdomen reveals no acute a bnormality. The surrounding osseous structures are remarkable for degenerative spondylosis of the s pine. No osteolytic or osteoblastic lesion is detected. IMPRESSION: 1. Previously seen right pleural effusion now represents a complex loculated air containing empyema s. 2. Right lung complex empyemas demonstrate visceral and parietal pleura calcifications. 3. Pleural calcifications can be seen in association with an active tubercular empyema. 4. 35 mm lesion with possible cavitation in the anterior inferior right upper lobe is also concerni ng for active tuberculosis. These findings and impression discussed with the patients nurse Cassi at [address] at the conclusion of this examination on 07/30/2016 at 0354 hours. ABNORMAL RESULTS: FINDINGS CONCERNING FOR ACTIVE TUBERCULOSIS. RPTAT: [facility] Henna Anderson Physician Date Time Electronically viewed and signed by Henna Anderson Physician on 07/30/2016 03:56 RS/
[2016-07-30] MEDS: PANTOPRAZOLE (EC) 40 MG TAB PO SCH (06:00)
[2016-07-30] MEDS: Insulin NOVOLOG SS MILD Algorithm (SS with meals and bedtime) SC SCH ×4 (07:30→20:43)
[2016-07-30 08:33] LABS: ADD SCAN DIFF NO
[2016-07-30 08:48] LABS: BASOPHIL # 0.1 10^3/ul (0.0-0.1); BASOPHILS % 0.7 % (0.0-2.0); EOSINOPHILS # 0.2 10^3/ul (0.0-0.5); EOSINOPHILS % 1.8 % (0.0-7.0); HEMATOCRIT 34.4 % (42.0-52.0); HEMOGLOBIN 11.7 g/dl (14.0-18.0); LYMPHOCYTES # 0.9 10^3/ul (0.8-2.9); LYMPHOCYTES % 9.3 % (15.0-51.0); MEAN CORPUSCULAR HEMOGLOBIN 31.7 pg (29.0-33.0); MEAN CORPUSCULAR VOLUME 93.2 fl (82.0-101.0); MEAN PLATELET VOLUME 10.3 fl (7.4-10.4); MONOCYTE # 1.4 10^3/ul (0.3-0.9); MONOCYTES % 14.1 % (0.0-11.0); NEUTROPHIL # 7.3 10^3/ul (1.6-7.5); NEUTROPHILS % 73.7 % (39.0-77.0); NUCLEATED RED BLOOD CELLS% 0.4 /100WBC (0.0-0.0); PLATELET COUNT 222 10^3/UL (140-415); RED BLOOD COUNT 3.69 10^6/ul (4.70-6.10); RED CELL DISTRIBUTION WIDTH 14.5 % (11.5-14.5); WHITE BLOOD COUNT 9.9 10^3/ul (4.8-10.8)
[2016-07-30 08:49] LABS: POTASSIUM 5.1 mmol/L (3.5-5.1)
[2016-07-30 08:52] LABS: CREATININE 8.09 mg/dl (0.61-1.24)
[2016-07-30 08:53] LABS: CALCIUM 10.2 mg/dl (8.4-10.2)
[2016-07-30] MEDS: CALCIUM ACETATE 667 MG CAP PO SCH ×3 (09:01→17:58)
[2016-07-30] MEDS: PYRIDOXINE 50 MG TAB PO SCH (09:01)
[2016-07-30] MEDS: ISONIAZID 300 MG TAB PO SCH (09:01)
[2016-07-30] MEDS: SEVELAMER CARBONATE 0.8 GM PKT PO SCH ×3 (09:01→17:58)
[2016-07-30] MEDS: CHOLECALCIFEROL 400 UNITS TAB PO SCH (09:01)
[2016-07-30] MEDS: METOPROLOL 100 MG TAB GTB SCH ×2 (09:02→20:36)
[2016-07-30] MEDS: FAMOTIDINE 20 MG TAB PO SCH (09:02)
[2016-07-30] MEDS: BENAZEPRIL 40 MG TAB PO SCH ×2 (09:03→20:37)
[2016-07-30] MEDS: FERROUS SULFATE (EC) 325 MG TAB PO SCH ×2 (09:03→20:37)
[2016-07-30] MEDS: NIFEdipine (XL) 60 MG TAB PO SCH ×2 (09:03→20:37)
[2016-07-30] MEDS: RIFAMPIN 300 MG CAP PO SCH (09:07)
[2016-07-30] MEDS: INSULIN ASPART [NOVOLOG] 3 ML PEN SC SCH ×2 (09:14→13:07)
--- NOTE | 2016-07-30 09:49 | CONS ---
Date/Time of Note Date/Time of Note DATE: 07/30/16 TIME: 09:46 Assessment/Plan Assessment/Plan Chief Complaint/Hosp Course assessment/impression - possible tubercular empyema: R sided complex loculated air containing empyemas , visceral and parietal pleural calcifications. - a 35 mm lesion with possible cavitation in the anterior inferior RUL, possible recurrent tuberculosis - high risk for TB: history (originally from [facility], spends one month of each year in [facility], last in 09/2015), medical history (DM, ESRD), laboratory findings (positive quantiferon TB gold, granulomatous inflammation with focal necrosis on Bx of pleura) - AFB smear was negative x3, also M. tuberculosis DNA probe to the 1st sputum sample was undetectable in early 07/2016 - s/p R VATS, total pulmonary decortication, R pleurodesis on 06/30/2016. Biopsy was negative for fungal stain and AFB stain (micro lab and pathology department), as well as malignancy. It showed granulomatous inflammation with focal necrosis and extensive hyalinization. Chest tube was removed - h/o recurrent pleural effusion requiring thoracentesis approximately once a year, last performed in 04/2016 prior to this admission - positive quantiferon TB gold status of unknown duration. Per Pt, his past PPD was done in 2013, and was negative. - Our infection radiation control health physicist Lindsey contacted the TB control unit at [facility]: we learned on 07/11/2016 that Pt has h/o mycobacterial tuberculosis infection in 1997 and was treated between 1997 and 1998. - DM - ESRD on HD - CAD s/p CABG in 2010 and cardiac stent in 2013 - HIV screen negative in 07/[address] [facility] - nausea, Pt has been taking TB meds according to his RN recommendations - repeat AFB smear and culture 3, added MTB DNA probe to the 1st sample (Yuriy at micro lab) - continue renally dosed RIPE plus vitamin B6 supplement (07/12/2016-) - will coordinate the management with infection control and TB unit re. thoracotomy, anti-TB meds management d/w Pt, Dr. Drake her RN and Yuriy at micro lab the total time I took to care for this pt today was from 0900 to 0945 Problems: Consultation Date/Type/Reason Admit Date/Time Jul 24, 2016 at 12:53 Initial Consult Date 07/25/16 Type of Consultation: ID Referring Provider: EVA COX MD 24 HR Interval Summary Free Text/Dictation isolated for another series of AFB smear and culture Subjective hx not possible: pt non-verbal Exam/Review of Systems Vital Signs Vitals Vital Signs Date Time Temp Pulse Resp B/P Pulse Ox O2 Delivery O2 Flow Rate FiO2 07/30/16 08:04 69 07/30/16 08:02 97.8 17 171/80 97 07/28/16 04:00 Room Air 07/26/16 20:00 2.0 Intake and Output 07/29/16 07/29/16 07/30/16 15:00 23:00 07:00 Intake Total 460 ml 50 ml Balance 460 ml 50 ml Exam Constitutional: frail, non-verbal Psych: confusion Head: atraumatic, normocephalic Eyes: nl conjunctiva, nl lids ENMT: nl external ears & nose, nl nasal mucosa & septum Neck: supple Respiratory: diminished breath sounds Cardiovascular: nl pulses, regular rate and rhythm Gastrointestinal: other (Pt declined the exam (doubled up)), soft Musculoskeletal: nl extremities to inspection Extremities: No edema Neurological: lethargic Skin: nl turgor Results Result Diagram: 07/30/16 0740 07/30/16 0740 Results 24 hrs Laboratory Tests Test 07/29/16 12:02 07/29/16 21:15 07/30/16 02:17 07/30/16 07:40 Bedside Glucose 157 218 144 White Blood Count 9.9 Red Blood Count 3.69 L Hemoglobin 11.7 L Hematocrit 34.4 L Mean Corpuscular Volume 93.2 Mean Corpuscular Hemoglobin 31.7 Mean Corpuscular Hemoglobin Concent 34.0 Red Cell Distribution Width 14.5 Platelet Count 222 # Mean Platelet Volume 10.3 Neutrophils % 73.7 Lymphocytes % 9.3 L Monocytes % 14.1 H Eosinophils % 1.8 Basophils % 0.7 Nucleated Red Blood Cells % 0.4 H Neutrophils # 7.3 Lymphocytes # 0.9 Monocytes # 1.4 H Eosinophils # 0.2 Basophils # 0.1 Nucleated Red Blood Cells # 0.0 Sodium Level 139 Potassium Level 5.1 Chloride Level 100 Carbon Dioxide Level 26 Anion Gap 18 H Blood Urea Nitrogen 89 H Creatinine 8.09 H Glucose Level 99 # Calcium Level 10.2 Test 07/30/16 07:41 Bedside Glucose 94 Medications Medications Current Medications Aspirin (Halfprin) 81 mg DAILY PO Last administered on 07/26/16 08:39; Admin Dose 81 MG; Start 07/25/16 at 09:00; Status Future Hold Atorvastatin Calcium (Lipitor) 10 mg QHS PO Last administered on 07/28/16 20: 12; Admin Dose 10 MG; Start 07/24/16 at 21:00 Benazepril HCl (Lotensin) 40 mg BID PO Last administered on 07/30/16 09:03; Admin Dose 40 MG; Start 07/24/16 at 21:00 Cholecalciferol (Vitamin D) 400 units DAILY PO Last administered on 07/30/16 09:01; Admin Dose 400 UNITS; Start 07/25/16 at 09:00 Famotidine (Pepcid) 20 mg DAILY PO Last administered on 07/30/16 09:02; Admin Dose 20 MG; Start 07/25/16 at 09:00 Ferrous Sulfate (Ferrous Sulfate (Ec)) 325 mg BID PO Last administered on 09:03; Admin Dose 325 MG; Start 07/24/16 at 21:00 Acetaminophen/ Hydrocodone Bitart ([place] (5/325)) 1 tab Q4H PRN PO PAIN; Start 07/24/16 at 17:00 Insulin Glargine (Lantus) 6 unit DAILY@20 SC Last administered on 07/29/16 21: 36; Admin Dose 6 UNIT; Start 07/24/16 at 20:00 Isoniazid (Isoniazid) 300 mg DAILY PO Last administered on 07/30/16 09:01; Admin Dose 300 MG; Start 07/24/16 at 15:30 Nifedipine (Procardia Xl) 60 mg BID PO Last administered on 07/30/16 09:03; Admin Dose 60 MG; Start 07/24/16 at 21:00 Pyridoxine HCl (Vitamin B6) 50 mg DAILY PO Last administered on 07/30/16 09:01 ; Admin Dose 50 MG; Start 07/25/16 at 09:00 Rifampin (Rifampin) 600 mg DAILY PO Last administered on 07/30/16 09:07; Admin Dose 600 MG; Start 07/25/16 at 09:00 Pyrazinamide (Pyrazinamide) 1,500 mg TuThSa@20 PO Last administered on 20:27; Admin Dose 1,500 MG; Start 07/24/16 at 20:00 Ethambutol HCl (Myambutol) 1,200 mg TuThSa@20 PO Last administered on 20:25; Admin Dose 1,200 MG; Start 07/24/16 at 20:00 Miscellaneous Information 1 ea NOTE XX ; Start 07/24/16 at 16:00 Glucose (Glutose) 15 gm Q15M PRN PO DECREASED GLUCOSE; Start 07/24/16 at 16:00 Glucose (Glutose) 22.5 gm Q15M PRN PO DECREASED GLUCOSE; Start 07/24/16 at 16: 00 Dextrose (D50w Syringe) 25 ml Q15M PRN IV DECREASED GLUCOSE; Start 07/24/16 at 16:00 Dextrose (D50w Syringe) 50 ml Q15M PRN IV DECREASED GLUCOSE; Start 07/24/16 at 16:00 Glucagon (Glucagen) 1 mg Q15M PRN IM DECREASED GLUCOSE; Start 07/24/16 at 16:00 Glucose (Glutose) 15 gm Q15M PRN BUCCAL DECREASED GLUCOSE; Start 07/24/16 at 16 :00 Ondansetron HCl (Zofran Inj) 4 mg Q4 PRN IV nausea Last administered on 21:28; Admin Dose 4 MG; Start 07/24/16 at 17:00 Hydromorphone HCl (Dilaudid) 1 mg Q4 PRN IV pain Last administered on 23:16; Admin Dose 1 MG; Start 07/24/16 at 17:00 Metoclopramide HCl (Reglan) 5 mg Q4H PRN IV NAUSEA Last administered on 10:05; Admin Dose 5 MG; Start 07/24/16 at 22:30 Diagnostic Test (Pha) (Accu-Chek) 1 ea 02 XX Last administered on 07/28/16 02: 54; Admin Dose 1 EA; Start 07/26/16 at 12:00 Clonidine HCl (Catapres-Tts 1 Patch) 1 patch Q7D TRANSDERM Last administered on 07/26/16 14:03; Admin Dose 1 PATCH; Start 07/26/16 at 13:00 Metoprolol Tartrate (Lopressor) 100 mg BID GTB Last administered on 07/30/16 09:02; Admin Dose 100 MG; Start 07/26/16 at 13:30 Clonidine HCl (Catapres-Tts 2 Patch) 1 patch Q7D TRANSDERM Last administered on 07/27/16 08:27; Admin Dose 1 PATCH; Start 07/27/16 at 07:00 Pantoprazole (Protonix Tab) 40 mg DAILY@06 PO Last administered on 07/29/16 05 :39; Admin Dose 40 MG; Start 07/28/16 at 06:00 Hydralazine HCl (Apresoline) 20 mg Q4 PRN IV ELEVATED BLOOD PRESSURE Last administered on 07/30/16 02:15; Admin Dose 20 MG; Start 07/28/16 at 02:00 Doxazosin Mesylate (Cardura) 2 mg HS PO Last administered on 07/28/16 20:13; Admin Dose 2 MG; Start 07/28/16 at 21:00 Polyethylene Glycol (Miralax) 17 gm DAILY PRN GTB CONSTIPATION Last administered on 07/28/16 20:22; Admin Dose 17 GM; Start 07/28/16 at 19:30 Lorazepam (Ativan) 1 mg Q4H PRN IV anxiety Last administered on 07/29/16 21:28 ; Admin Dose 1 MG; Start 07/29/16 at 06:30 YUMIKO NICHOLSON M.D. Jul 30, 2016 09:49
--- NOTE | 2016-07-30 13:55 | CONS ---
Date/Time of Note Date/Time of Note DATE: 07/30/16 TIME: 13:54 Consult Date/Type/Reason Admit Date/Time Jul 24, 2016 at 12:53 Initial Consult Date 07/25/16 Type of Consultation: pulmonary Ordering Provider: EVA COX MD Subjective Patient remains relatively stable this morning no significant shortness of breath Objective Vital Signs Date Time Temp Pulse Resp B/P Pulse Ox O2 Delivery O2 Flow Rate FiO2 07/30/16 12:26 69 07/30/16 12:00 98.4 18 128/66 94 07/28/16 04:00 Room Air 07/26/16 20:00 2.0 Intake and Output 07/29/16 07/29/16 07/30/16 15:00 23:00 07:00 Intake Total 460 ml 50 ml Balance 460 ml 50 ml Exam PHYSICAL EXAMINATION GENERAL: Elderly gentleman comfortable at rest VITAL SIGNS: see below. HEENT: Pupils equal, round, and reactive to light. CARDIAC: S1, S2, tachycardia. CHEST: Diminished air entry bilaterally. Chest tube in place ABDOMEN: Mildly distended. No bowel sounds. EXTREMITIES: No cyanosis, clubbing or edema. NEUROLOGIC: No focal deficits. Results/Medications Result Diagram: 07/30/16 0740 07/30/16 0740 Results 24 hrs Laboratory Tests Test 07/29/16 21:15 07/30/16 02:17 07/30/16 07:40 07/30/16 07:41 Bedside Glucose 218 144 94 White Blood Count 9.9 Red Blood Count 3.69 L Hemoglobin 11.7 L Hematocrit 34.4 L Mean Corpuscular Volume 93.2 Mean Corpuscular Hemoglobin 31.7 Mean Corpuscular Hemoglobin Concent 34.0 Red Cell Distribution Width 14.5 Platelet Count 222 # Mean Platelet Volume 10.3 Neutrophils % 73.7 Lymphocytes % 9.3 L Monocytes % 14.1 H Eosinophils % 1.8 Basophils % 0.7 Nucleated Red Blood Cells % 0.4 H Neutrophils # 7.3 Lymphocytes # 0.9 Monocytes # 1.4 H Eosinophils # 0.2 Basophils # 0.1 Nucleated Red Blood Cells # 0.0 Sodium Level 139 Potassium Level 5.1 Chloride Level 100 Carbon Dioxide Level 26 Anion Gap 18 H Blood Urea Nitrogen 89 H Creatinine 8.09 H Glucose Level 99 # Calcium Level 10.2 Test 07/30/16 11:58 Bedside Glucose 182 Medications Current Medications Aspirin (Halfprin) 81 mg DAILY PO Last administered on 07/26/16 08:39; Admin Dose 81 MG; Start 07/25/16 at 09:00; Status Future Hold Atorvastatin Calcium (Lipitor) 10 mg QHS PO Last administered on 07/28/16 20: 12; Admin Dose 10 MG; Start 07/24/16 at 21:00 Benazepril HCl (Lotensin) 40 mg BID PO Last administered on 07/30/16 09:03; Admin Dose 40 MG; Start 07/24/16 at 21:00 Cholecalciferol (Vitamin D) 400 units DAILY PO Last administered on 07/30/16 09:01; Admin Dose 400 UNITS; Start 07/25/16 at 09:00 Famotidine (Pepcid) 20 mg DAILY PO Last administered on 07/30/16 09:02; Admin Dose 20 MG; Start 07/25/16 at 09:00 Ferrous Sulfate (Ferrous Sulfate (Ec)) 325 mg BID PO Last administered on 09:03; Admin Dose 325 MG; Start 07/24/16 at 21:00 Acetaminophen/ Hydrocodone Bitart ([place] (5/325)) 1 tab Q4H PRN PO PAIN; Start 07/24/16 at 17:00 Insulin Glargine (Lantus) 6 unit DAILY@20 SC Last administered on 07/29/16 21: 36; Admin Dose 6 UNIT; Start 07/24/16 at 20:00 Isoniazid (Isoniazid) 300 mg DAILY PO Last administered on 07/30/16 09:01; Admin Dose 300 MG; Start 07/24/16 at 15:30 Nifedipine (Procardia Xl) 60 mg BID PO Last administered on 07/30/16 09:03; Admin Dose 60 MG; Start 07/24/16 at 21:00 Pyridoxine HCl (Vitamin B6) 50 mg DAILY PO Last administered on 07/30/16 09:01 ; Admin Dose 50 MG; Start 07/25/16 at 09:00 Rifampin (Rifampin) 600 mg DAILY PO Last administered on 07/30/16 09:07; Admin Dose 600 MG; Start 07/25/16 at 09:00 Pyrazinamide (Pyrazinamide) 1,500 mg TuThSa@20 PO Last administered on 20:27; Admin Dose 1,500 MG; Start 07/24/16 at 20:00 Ethambutol HCl (Myambutol) 1,200 mg TuThSa@20 PO Last administered on 20:25; Admin Dose 1,200 MG; Start 07/24/16 at 20:00 Miscellaneous Information 1 ea NOTE XX ; Start 07/24/16 at 16:00 Glucose (Glutose) 15 gm Q15M PRN PO DECREASED GLUCOSE; Start 07/24/16 at 16:00 Glucose (Glutose) 22.5 gm Q15M PRN PO DECREASED GLUCOSE; Start 07/24/16 at 16: 00 Dextrose (D50w Syringe) 25 ml Q15M PRN IV DECREASED GLUCOSE; Start 07/24/16 at 16:00 Dextrose (D50w Syringe) 50 ml Q15M PRN IV DECREASED GLUCOSE; Start 07/24/16 at 16:00 Glucagon (Glucagen) 1 mg Q15M PRN IM DECREASED GLUCOSE; Start 07/24/16 at 16:00 Glucose (Glutose) 15 gm Q15M PRN BUCCAL DECREASED GLUCOSE; Start 07/24/16 at 16 :00 Ondansetron HCl (Zofran Inj) 4 mg Q4 PRN IV nausea Last administered on 21:28; Admin Dose 4 MG; Start 07/24/16 at 17:00 Hydromorphone HCl (Dilaudid) 1 mg Q4 PRN IV pain Last administered on 23:16; Admin Dose 1 MG; Start 07/24/16 at 17:00 Metoclopramide HCl (Reglan) 5 mg Q4H PRN IV NAUSEA Last administered on 10:05; Admin Dose 5 MG; Start 07/24/16 at 22:30 Diagnostic Test (Pha) (Accu-Chek) 1 ea 02 XX Last administered on 07/28/16 02: 54; Admin Dose 1 EA; Start 07/26/16 at 12:00 Clonidine HCl (Catapres-Tts 1 Patch) 1 patch Q7D TRANSDERM Last administered on 07/26/16 14:03; Admin Dose 1 PATCH; Start 07/26/16 at 13:00 Metoprolol Tartrate (Lopressor) 100 mg BID GTB Last administered on 07/30/16 09:02; Admin Dose 100 MG; Start 07/26/16 at 13:30 Clonidine HCl (Catapres-Tts 2 Patch) 1 patch Q7D TRANSDERM Last administered on 07/27/16 08:27; Admin Dose 1 PATCH; Start 07/27/16 at 07:00 Pantoprazole (Protonix Tab) 40 mg DAILY@06 PO Last administered on 07/29/16 05 :39; Admin Dose 40 MG; Start 07/28/16 at 06:00 Hydralazine HCl (Apresoline) 20 mg Q4 PRN IV ELEVATED BLOOD PRESSURE Last administered on 07/30/16 02:15; Admin Dose 20 MG; Start 07/28/16 at 02:00 Doxazosin Mesylate (Cardura) 2 mg HS PO Last administered on 07/28/16 20:13; Admin Dose 2 MG; Start 07/28/16 at 21:00 Polyethylene Glycol (Miralax) 17 gm DAILY PRN GTB CONSTIPATION Last administered on 07/28/16 20:22; Admin Dose 17 GM; Start 07/28/16 at 19:30 Lorazepam (Ativan) 1 mg Q4H PRN IV anxiety Last administered on 07/29/16 21:28 ; Admin Dose 1 MG; Start 07/29/16 at 06:30 Assessment/Plan Chief Complaint/Hosp Course Assessment 1. Recurrent right pleural effusion consistent with empyema, cavitary lesions in the lung noted following thoracentesis. Consistent with possible active TB. 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 Recent VATS decortication now requiring repeat procedure 3. Coronary artery disease on antiplatelet agents 4. End-stage renal failure on hemodialysis Plan 1. Continue infectious disease recommendations in conjunction with Department of Health 2. Continue chest tube drainage possible repeat video-assisted thorascopic surgery 3. Continue hemodialysis 4. Encourage incentive spirometry Disposition Continue telemetry level of care Problems: MATILDE DEWEY [facility], [facility] Jul 30, 2016 13:55
--- NOTE | 2016-07-30 14:16 | PN ---
Date/Time of Note Date/Time of Note DATE: 07/30/16 TIME: 14:15 Assessment/Plan Lines/Catheters IV Catheter Type (from Nrsg): Central Line Joans in Place (from Nrsg): No Assessment/Plan Chief Complaint/Hosp Course IMPRESSION: Right chest tube site bleeding, which has now subsided completely. Hgb stable Would monitor the hemoglobin levels and stop the antiplatelet. plan for VATS after the pt has been off of plavix for 5 days this week Problems: Subjective 24 Hr Interval Summary Constitutional: improved Pain Control: mild Exam/Review of Systems Vital Signs Vitals Vital Signs Date Time Temp Pulse Resp B/P Pulse Ox O2 Delivery O2 Flow Rate FiO2 07/30/16 12:26 69 07/30/16 12:00 98.4 18 128/66 94 07/28/16 04:00 Room Air 07/26/16 20:00 2.0 Intake and Output 07/29/16 07/29/16 07/30/16 14:59 22:59 06:59 Intake Total 460 ml 50 ml Balance 460 ml 50 ml Exam Neck: non-tender, supple Respiratory: clear to auscultation, normal air movement Cardiovascular: nl pulses, regular rate and rhythm Gastrointestinal: nl liver, spleen, non-tender, soft Results Result Diagram: 07/30/16 0740 07/30/16 0740 LILAI FELIZ MD Jul 30, 2016 14:16
--- NOTE | 2016-07-30 15:34 | PN ---
Date/Time of Note Date/Time of Note DATE: 07/30/16 TIME: 15:30 Assessment/Plan VTE Prophylaxis VTE Prophylaxis Intervention: SCD's Lines/Catheters [facility]from [facility] Central Line Central line still needed: Yes Urinary Cath still in place: No Assessment/Plan Chief Complaint/Hosp Course Assessment and plan: - Recurrent right pleural effusion consistent with empyema, cavitary lesions, plan for VATS, Plavix is on hold. -Hemoptysis, resolved. Dr. Dale is following in pulmonology consultation. Dr. Tucker is following an infection disease consultation. -Right former chest tube site bleeding, resolved. Dr. Martinez is following in thoracic surgery consultation. -Anemia of acute blood loss, patient had bleeding from the right femoral catheter as well as chest tube site on admission, status post blood transfusion , continue to monitor hemoglobin and hematocrit. Dr. Martinez is following in hematology consultation. 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 - End-stage renal disease, continue hemodialysis. Dr. Saunders is following in nephrology consultation. - Diabetes mellitus type 2, continue Lantus, pre-meal NovoLog and NovoLog per mild algorithm sliding scale. - Hypertension. Dr. De Santiago is following and cardiology consultation. Continue benazepril metoprolol hydralazine Procardia - Coronary artery disease, status post coronary artery bypass graft, s/p percutaneous transluminal coronary angioplasty and stent placement to left main and left anterior descending in 2014. - Permanent pacemaker. No acute issues. - Dyslipidemia. Continue Lipitor. Further recommendations based on clinical course. Plan of care discussed with Dr. Price. Problems: Subjective 24 Hr Interval Summary Free Text/Dictation Patient denies chest pain, denies shortness of breath, complains of poor appetite, no fever. Exam/Review of Systems Vital Signs Vitals Vital Signs Date Time Temp Pulse Resp B/P Pulse Ox O2 Delivery O2 Flow Rate FiO2 07/30/16 12:26 69 07/30/16 12:00 98.4 18 128/66 94 07/28/16 04:00 Room Air 07/26/16 20:00 2.0 Intake and Output 07/29/16 07/29/16 07/30/16 15:00 23:00 07:00 Intake Total 460 ml 50 ml Balance 460 ml 50 ml Exam Constitutional: alert, oriented Psych: no complaints Head: atraumatic, normocephalic ENMT: nl external ears & nose Neck: non-tender, supple Respiratory: clear to auscultation, normal air movement Cardiovascular: other (Left chest permanent pacemaker), regular rate and rhythm Gastrointestinal: bowel sounds, soft Extremities: normal pulses Neurological: MOLD STACKER II-XII intact Results Result Diagram: 07/30/1640 07/30/16 0740 Results 24 hrs Laboratory Tests Test 07/29/16 21:15 07/30/16 02:17 07/30/16 07:40 07/30/16 07:41 Bedside Glucose 218 144 94 White Blood Count 9.9 Red Blood Count 3.69 L Hemoglobin 11.7 L Hematocrit 34.4 L Mean Corpuscular Volume 93.2 Mean Corpuscular Hemoglobin 31.7 Mean Corpuscular Hemoglobin Concent 34.0 Red Cell Distribution Width 14.5 Platelet Count 222 # Mean Platelet Volume 10.3 Neutrophils % 73.7 Lymphocytes % 9.3 L Monocytes % 14.1 H Eosinophils % 1.8 Basophils % 0.7 Nucleated Red Blood Cells % 0.4 H Neutrophils # 7.3 Lymphocytes # 0.9 Monocytes # 1.4 H Eosinophils # 0.2 Basophils # 0.1 Nucleated Red Blood Cells # 0.0 Sodium Level 139 Potassium Level 5.1 Chloride Level 100 Carbon Dioxide Level 26 Anion Gap 18 H Blood Urea Nitrogen 89 H Creatinine 8.09 H Glucose Level 99 # Calcium Level 10.2 Test 07/30/16 11:58 Bedside Glucose 182 Medications Medications Current Medications Aspirin (Halfprin) 81 mg DAILY PO Last administered on 07/26/16 08:39; Admin Dose 81 MG; Start 07/25/16 at 09:00; Status Future Hold Atorvastatin Calcium (Lipitor) 10 mg QHS PO Last administered on 07/28/16 20: 12; Admin Dose 10 MG; Start 07/24/16 at 21:00 Benazepril HCl (Lotensin) 40 mg BID PO Last administered on 07/30/16 09:03; Admin Dose 40 MG; Start 07/24/16 at 21:00 Cholecalciferol (Vitamin D) 400 units DAILY PO Last administered on 07/30/16 09:01; Admin Dose 400 UNITS; Start 07/25/16 at 09:00 Famotidine (Pepcid) 20 mg DAILY PO Last administered on 07/30/16 09:02; Admin Dose 20 MG; Start 07/25/16 at 09:00 Ferrous Sulfate (Ferrous Sulfate (Ec)) 325 mg BID PO Last administered on 09:03; Admin Dose 325 MG; Start 07/24/16 at 21:00 Acetaminophen/ Hydrocodone Bitart ([place] (5/325)) 1 tab Q4H PRN PO PAIN; Start 07/24/16 at 17:00 Insulin Glargine (Lantus) 6 unit DAILY@20 SC Last administered on 07/29/16 21: 36; Admin Dose 6 UNIT; Start 07/24/16 at 20:00 Isoniazid (Isoniazid) 300 mg DAILY PO Last administered on 07/30/16 09:01; Admin Dose 300 MG; Start 07/24/16 at 15:30 Nifedipine (Procardia Xl) 60 mg BID PO Last administered on 07/30/16 09:03; Admin Dose 60 MG; Start 07/24/16 at 21:00 Pyridoxine HCl (Vitamin B6) 50 mg DAILY PO Last administered on 07/30/16 09:01 ; Admin Dose 50 MG; Start 07/25/16 at 09:00 Rifampin (Rifampin) 600 mg DAILY PO Last administered on 07/30/16 09:07; Admin Dose 600 MG; Start 07/25/16 at 09:00 Pyrazinamide (Pyrazinamide) 1,500 mg TuThSa@20 PO Last administered on 20:27; Admin Dose 1,500 MG; Start 07/24/16 at 20:00 Ethambutol HCl (Myambutol) 1,200 mg TuThSa@20 PO Last administered on 20:25; Admin Dose 1,200 MG; Start 07/24/16 at 20:00 Miscellaneous Information 1 ea NOTE XX ; Start 07/24/16 at 16:00 Glucose (Glutose) 15 gm Q15M PRN PO DECREASED GLUCOSE; Start 07/24/16 at 16:00 Glucose (Glutose) 22.5 gm Q15M PRN PO DECREASED GLUCOSE; Start 07/24/16 at 16: 00 Dextrose (D50w Syringe) 25 ml Q15M PRN IV DECREASED GLUCOSE; Start 07/24/16 at 16:00 Dextrose (D50w Syringe) 50 ml Q15M PRN IV DECREASED GLUCOSE; Start 07/24/16 at 16:00 Glucagon (Glucagen) 1 mg Q15M PRN IM DECREASED GLUCOSE; Start 07/24/16 at 16:00 Glucose (Glutose) 15 gm Q15M PRN BUCCAL DECREASED GLUCOSE; Start 07/24/16 at 16 :00 Ondansetron HCl (Zofran Inj) 4 mg Q4 PRN IV nausea Last administered on 21:28; Admin Dose 4 MG; Start 07/24/16 at 17:00 Hydromorphone HCl (Dilaudid) 1 mg Q4 PRN IV pain Last administered on 23:16; Admin Dose 1 MG; Start 07/24/16 at 17:00 Metoclopramide HCl (Reglan) 5 mg Q4H PRN IV NAUSEA Last administered on 10:05; Admin Dose 5 MG; Start 07/24/16 at 22:30 Diagnostic Test (Pha) (Accu-Chek) 1 ea 02 XX Last administered on 07/28/16 02: 54; Admin Dose 1 EA; Start 07/26/16 at 12:00 Clonidine HCl (Catapres-Tts 1 Patch) 1 patch Q7D TRANSDERM Last administered on 07/26/16 14:03; Admin Dose 1 PATCH; Start 07/26/16 at 13:00 Metoprolol Tartrate (Lopressor) 100 mg BID GTB Last administered on 07/30/16 09:02; Admin Dose 100 MG; Start 07/26/16 at 13:30 Clonidine HCl (Catapres-Tts 2 Patch) 1 patch Q7D TRANSDERM Last administered on 07/27/16 08:27; Admin Dose 1 PATCH; Start 07/27/16 at 07:00 Pantoprazole (Protonix Tab) 40 mg DAILY@06 PO Last administered on 07/29/16 05 :39; Admin Dose 40 MG; Start 07/28/16 at 06:00 Hydralazine HCl (Apresoline) 20 mg Q4 PRN IV ELEVATED BLOOD PRESSURE Last administered on 07/30/16 02:15; Admin Dose 20 MG; Start 07/28/16 at 02:00 Doxazosin Mesylate (Cardura) 2 mg HS PO Last administered on 07/28/16 20:13; Admin Dose 2 MG; Start 07/28/16 at 21:00 Polyethylene Glycol (Miralax) 17 gm DAILY PRN GTB CONSTIPATION Last administered on 07/28/16 20:22; Admin Dose 17 GM; Start 07/28/16 at 19:30 Lorazepam (Ativan) 1 mg Q4H PRN IV anxiety Last administered on 07/29/16 21:28 ; Admin Dose 1 MG; Start 07/29/16 at 06:30 CECILIA DAMICO Jul 30, 2016 15:34
--- NOTE | 2016-07-30 17:27 | CONS ---
Date/Time of Note Date/Time of Note DATE: 07/30/16 TIME: 17:24 Assessment/Plan Assessment/Plan Chief Complaint/Hosp Course IMPRESSION: 1. Abnormal electrocardiogram, assess for acute coronary syndrome with no current chest pain and recently negative stress test.-negative troponin x 3 2. History of a percutaneous transluminal coronary angioplasty and stent placement to left main and left anterior descending in 2014. 3. History of coronary artery bypass graft surgery. 4. Video assisted thoracoscopic surgery pleurodesis with leakage from the chest tube site. 5. Shortness of breath. 6. End-stage renal disease on hemodialysis. 7. Tuberculosis, on therapy. 8. Hypertension 9. Diabetes mellitus. 10. Dyslipidemia. 11. Anemia-worsening s/p transfusion 12.Empyema/cavitary lesions by CT Recc: -Tele -Continue benazepril/BB/CCB/clonidine TTS/cardura and follow BP closely with further uptitration as necessary -Plavix/asa held in the setting of anemia/resume when possible-safe after repeat VATS procedure -HD for volume removal -Pnding repeat VATS/pleurodesis -Back on droplet precautions -continue TB treatment Problems: Consultation Date/Type/Reason Admit Date/Time Jul 24, 2016 at 12:53 Initial Consult Date 07/24/16 Type of Consultation: Cardiology Reason for Consultation HTN Referring Provider: EVA COX MD Exam/Review of Systems Vital Signs Vitals Vital Signs Date Time Temp Pulse Resp B/P Pulse Ox O2 Delivery O2 Flow Rate FiO2 07/30/16 16:07 69 07/30/16 16:04 97.5 18 137/64 96 07/28/16 04:00 Room Air 07/26/16 20:00 2.0 Intake and Output 07/29/16 07/29/16 07/30/16 15:00 23:00 07:00 Intake Total 460 ml 50 ml Balance 460 ml 50 ml Exam Review of Systems: CONSTITUTIONAL: No fevers, chills. PULMONARY: mild sob CARDIOVASCULAR: No chest pain/palpitations GASTROINTESTINAL: No nausea/vomiting. GENITOURINARY: No hematuria/dysuria. MUSCULOSKELETAL: No myagias/arthalgias. PSYCHIATRIC: The patient denies depression. NEUROLOGIC: No weakness Constitutional: alert, oriented Psych: no complaints Head: normocephalic ENMT: mucosa pink and moist Neck: jvd (9 cm water), supple Respiratory: diminished breath sounds (at bases/B) Cardiovascular: regular rate and rhythm Gastrointestinal: non-tender, soft Musculoskeletal: muscle tone (normal) Extremities: edema (none) Neurological: other (NO focal deficitis) Results Result Diagram: 07/30/16 0740 07/30/16 0740 Results 24 hrs Laboratory Tests Test 07/29/16 21:15 07/30/16 02:17 07/30/16 07:40 07/30/16 07:41 Bedside Glucose 218 144 94 White Blood Count 9.9 Red Blood Count 3.69 L Hemoglobin 11.7 L Hematocrit 34.4 L Mean Corpuscular Volume 93.2 Mean Corpuscular Hemoglobin 31.7 Mean Corpuscular Hemoglobin Concent 34.0 Red Cell Distribution Width 14.5 Platelet Count 222 # Mean Platelet Volume 10.3 Neutrophils % 73.7 Lymphocytes % 9.3 L Monocytes % 14.1 H Eosinophils % 1.8 Basophils % 0.7 Nucleated Red Blood Cells % 0.4 H Neutrophils # 7.3 Lymphocytes # 0.9 Monocytes # 1.4 H Eosinophils # 0.2 Basophils # 0.1 Nucleated Red Blood Cells # 0.0 Sodium Level 139 Potassium Level 5.1 Chloride Level 100 Carbon Dioxide Level 26 Anion Gap 18 H Blood Urea Nitrogen 89 H Creatinine 8.09 H Glucose Level 99 # Calcium Level 10.2 Test 07/30/16 11:58 Bedside Glucose 182 Medications Medications Current Medications Aspirin (Halfprin) 81 mg DAILY PO Last administered on 07/26/16 08:39; Admin Dose 81 MG; Start 07/25/16 at 09:00; Status Future Hold Atorvastatin Calcium (Lipitor) 10 mg QHS PO Last administered on 07/28/16 20: 12; Admin Dose 10 MG; Start 07/24/16 at 21:00 Benazepril HCl (Lotensin) 40 mg BID PO Last administered on 07/30/16 09:03; Admin Dose 40 MG; Start 07/24/16 at 21:00 Cholecalciferol (Vitamin D) 400 units DAILY PO Last administered on 07/30/16 09:01; Admin Dose 400 UNITS; Start 07/25/16 at 09:00 Famotidine (Pepcid) 20 mg DAILY PO Last administered on 07/30/16 09:02; Admin Dose 20 MG; Start 07/25/16 at 09:00 Ferrous Sulfate (Ferrous Sulfate (Ec)) 325 mg BID PO Last administered on 09:03; Admin Dose 325 MG; Start 07/24/16 at 21:00 Acetaminophen/ Hydrocodone Bitart ([place] (5/325)) 1 tab Q4H PRN PO PAIN; Start 07/24/16 at 17:00 Insulin Glargine (Lantus) 6 unit DAILY@20 SC Last administered on 07/29/16 21: 36; Admin Dose 6 UNIT; Start 07/24/16 at 20:00 Isoniazid (Isoniazid) 300 mg DAILY PO Last administered on 07/30/16 09:01; Admin Dose 300 MG; Start 07/24/16 at 15:30 Nifedipine (Procardia Xl) 60 mg BID PO Last administered on 07/30/16 09:03; Admin Dose 60 MG; Start 07/24/16 at 21:00 Pyridoxine HCl (Vitamin B6) 50 mg DAILY PO Last administered on 07/30/16 09:01 ; Admin Dose 50 MG; Start 07/25/16 at 09:00 Rifampin (Rifampin) 600 mg DAILY PO Last administered on 07/30/16 09:07; Admin Dose 600 MG; Start 07/25/16 at 09:00 Pyrazinamide (Pyrazinamide) 1,500 mg TuThSa@20 PO Last administered on 20:27; Admin Dose 1,500 MG; Start 07/24/16 at 20:00 Ethambutol HCl (Myambutol) 1,200 mg TuThSa@20 PO Last administered on 20:25; Admin Dose 1,200 MG; Start 07/24/16 at 20:00 Miscellaneous Information 1 ea NOTE XX ; Start 07/24/16 at 16:00 Glucose (Glutose) 15 gm Q15M PRN PO DECREASED GLUCOSE; Start 07/24/16 at 16:00 Glucose (Glutose) 22.5 gm Q15M PRN PO DECREASED GLUCOSE; Start 07/24/16 at 16: 00 Dextrose (D50w Syringe) 25 ml Q15M PRN IV DECREASED GLUCOSE; Start 07/24/16 at 16:00 Dextrose (D50w Syringe) 50 ml Q15M PRN IV DECREASED GLUCOSE; Start 07/24/16 at 16:00 Glucagon (Glucagen) 1 mg Q15M PRN IM DECREASED GLUCOSE; Start 07/24/16 at 16:00 Glucose (Glutose) 15 gm Q15M PRN BUCCAL DECREASED GLUCOSE; Start 07/24/16 at 16 :00 Ondansetron HCl (Zofran Inj) 4 mg Q4 PRN IV nausea Last administered on 21:28; Admin Dose 4 MG; Start 07/24/16 at 17:00 Hydromorphone HCl (Dilaudid) 1 mg Q4 PRN IV pain Last administered on 23:16; Admin Dose 1 MG; Start 07/24/16 at 17:00 Metoclopramide HCl (Reglan) 5 mg Q4H PRN IV NAUSEA Last administered on 10:05; Admin Dose 5 MG; Start 07/24/16 at 22:30 Diagnostic Test (Pha) (Accu-Chek) 1 ea 02 XX Last administered on 07/28/16 02: 54; Admin Dose 1 EA; Start 07/26/16 at 12:00 Clonidine HCl (Catapres-Tts 1 Patch) 1 patch Q7D TRANSDERM Last administered on 07/26/16 14:03; Admin Dose 1 PATCH; Start 07/26/16 at 13:00 Metoprolol Tartrate (Lopressor) 100 mg BID GTB Last administered on 07/30/16 09:02; Admin Dose 100 MG; Start 07/26/16 at 13:30 Clonidine HCl (Catapres-Tts 2 Patch) 1 patch Q7D TRANSDERM Last administered on 07/27/16 08:27; Admin Dose 1 PATCH; Start 07/27/16 at 07:00 Pantoprazole (Protonix Tab) 40 mg DAILY@06 PO Last administered on 07/29/16 05 :39; Admin Dose 40 MG; Start 07/28/16 at 06:00 Hydralazine HCl (Apresoline) 20 mg Q4 PRN IV ELEVATED BLOOD PRESSURE Last administered on 07/30/16 02:15; Admin Dose 20 MG; Start 07/28/16 at 02:00 Doxazosin Mesylate (Cardura) 2 mg HS PO Last administered on 07/28/16 20:13; Admin Dose 2 MG; Start 07/28/16 at 21:00 Polyethylene Glycol (Miralax) 17 gm DAILY PRN GTB CONSTIPATION Last administered on 07/28/16 20:22; Admin Dose 17 GM; Start 07/28/16 at 19:30 Lorazepam (Ativan) 1 mg Q4H PRN IV anxiety Last administered on 07/29/16 21:28 ; Admin Dose 1 MG; Start 07/29/16 at 06:30 SHERITA SCOTT Jul 30, 2016 17:27
--- NOTE | 2016-07-30 19:37 | CONS ---
Date/Time of Note Date/Time of Note DATE: 07/30/16 TIME: 19:35 Assessment/Plan Assessment/Plan Chief Complaint/Hosp Course IMPRESSION: 1. Recurrent pleural effusions. 2. Lung infiltrate./cavitary lesion 3. chronic lung disease. 4. Hypertension. 5. Diabetes mellitus. 6. End-stage renal disease. 7. anemia. 8. cad. 9. Leukocytosis.better 10. ashd 11. s/p vats. 12. The patient on anti-tuberculosis treatment. 13. 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 PLAN HD refuse by pt for am per id and surgery Problems: Consultation Date/Type/Reason Admit Date/Time Jul 24, 2016 at 12:53 Initial Consult Date 07/25/16 Type of Consultation: renal Referring Provider: EVA COX MD 24 HR Interval Summary Subjective hx not possible: other (pain+ chest wall) Exam/Review of Systems Vital Signs Vitals Vital Signs Date Time Temp Pulse Resp B/P Pulse Ox O2 Delivery O2 Flow Rate FiO2 07/30/16 16:07 69 07/30/16 16:04 97.5 18 137/64 96 07/28/16 04:00 Room Air 07/26/16 20:00 2.0 Intake and Output 07/29/16 07/29/16 07/30/16 15:00 23:00 07:00 Intake Total 460 ml 50 ml Balance 460 ml 50 ml Exam Respiratory: diminished breath sounds Cardiovascular: regular rate and rhythm Gastrointestinal: bowel sounds (+), soft Extremities: No edema Results Result Diagram: 07/30/16 0740 07/30/16 0740 Results 24 hrs Laboratory Tests Test 07/29/16 21:15 07/30/16 02:17 07/30/16 07:40 07/30/16 07:41 Bedside Glucose 218 144 94 White Blood Count 9.9 Red Blood Count 3.69 L Hemoglobin 11.7 L Hematocrit 34.4 L Mean Corpuscular Volume 93.2 Mean Corpuscular Hemoglobin 31.7 Mean Corpuscular Hemoglobin Concent 34.0 Red Cell Distribution Width 14.5 Platelet Count 222 # Mean Platelet Volume 10.3 Neutrophils % 73.7 Lymphocytes % 9.3 L Monocytes % 14.1 H Eosinophils % 1.8 Basophils % 0.7 Nucleated Red Blood Cells % 0.4 H Neutrophils # 7.3 Lymphocytes # 0.9 Monocytes # 1.4 H Eosinophils # 0.2 Basophils # 0.1 Nucleated Red Blood Cells # 0.0 Sodium Level 139 Potassium Level 5.1 Chloride Level 100 Carbon Dioxide Level 26 Anion Gap 18 H Blood Urea Nitrogen 89 H Creatinine 8.09 H Glucose Level 99 # Calcium Level 10.2 Test 07/30/16 11:58 07/30/16 17:59 Bedside Glucose 182 202 Medications Medications Current Medications Aspirin (Halfprin) 81 mg DAILY PO Last administered on 07/26/16 08:39; Admin Dose 81 MG; Start 07/25/16 at 09:00; Status Future Hold Atorvastatin Calcium (Lipitor) 10 mg QHS PO Last administered on 07/28/16 20: 12; Admin Dose 10 MG; Start 07/24/16 at 21:00 Benazepril HCl (Lotensin) 40 mg BID PO Last administered on 07/30/16 09:03; Admin Dose 40 MG; Start 07/24/16 at 21:00 Cholecalciferol (Vitamin D) 400 units DAILY PO Last administered on 07/30/16 09:01; Admin Dose 400 UNITS; Start 07/25/16 at 09:00 Famotidine (Pepcid) 20 mg DAILY PO Last administered on 07/30/16 09:02; Admin Dose 20 MG; Start 07/25/16 at 09:00 Ferrous Sulfate (Ferrous Sulfate (Ec)) 325 mg BID PO Last administered on 09:03; Admin Dose 325 MG; Start 07/24/16 at 21:00 Acetaminophen/ Hydrocodone Bitart ([place] (5/325)) 1 tab Q4H PRN PO PAIN; Start 07/24/16 at 17:00 Insulin Glargine (Lantus) 6 unit DAILY@20 SC Last administered on 07/29/16 21: 36; Admin Dose 6 UNIT; Start 07/24/16 at 20:00 Isoniazid (Isoniazid) 300 mg DAILY PO Last administered on 07/30/16 09:01; Admin Dose 300 MG; Start 07/24/16 at 15:30 Nifedipine (Procardia Xl) 60 mg BID PO Last administered on 07/30/16 09:03; Admin Dose 60 MG; Start 07/24/16 at 21:00 Pyridoxine HCl (Vitamin B6) 50 mg DAILY PO Last administered on 07/30/16 09:01 ; Admin Dose 50 MG; Start 07/25/16 at 09:00 Rifampin (Rifampin) 600 mg DAILY PO Last administered on 07/30/16 09:07; Admin Dose 600 MG; Start 07/25/16 at 09:00 Pyrazinamide (Pyrazinamide) 1,500 mg TuThSa@20 PO Last administered on 20:27; Admin Dose 1,500 MG; Start 07/24/16 at 20:00 Ethambutol HCl (Myambutol) 1,200 mg TuThSa@20 PO Last administered on 20:25; Admin Dose 1,200 MG; Start 07/24/16 at 20:00 Miscellaneous Information 1 ea NOTE XX ; Start 07/24/16 at 16:00 Glucose (Glutose) 15 gm Q15M PRN PO DECREASED GLUCOSE; Start 07/24/16 at 16:00 Glucose (Glutose) 22.5 gm Q15M PRN PO DECREASED GLUCOSE; Start 07/24/16 at 16: 00 Dextrose (D50w Syringe) 25 ml Q15M PRN IV DECREASED GLUCOSE; Start 07/24/16 at 16:00 Dextrose (D50w Syringe) 50 ml Q15M PRN IV DECREASED GLUCOSE; Start 07/24/16 at 16:00 Glucagon (Glucagen) 1 mg Q15M PRN IM DECREASED GLUCOSE; Start 07/24/16 at 16:00 Glucose (Glutose) 15 gm Q15M PRN BUCCAL DECREASED GLUCOSE; Start 07/24/16 at 16 :00 Ondansetron HCl (Zofran Inj) 4 mg Q4 PRN IV nausea Last administered on 21:28; Admin Dose 4 MG; Start 07/24/16 at 17:00 Hydromorphone HCl (Dilaudid) 1 mg Q4 PRN IV pain Last administered on 23:16; Admin Dose 1 MG; Start 07/24/16 at 17:00 Metoclopramide HCl (Reglan) 5 mg Q4H PRN IV NAUSEA Last administered on 10:05; Admin Dose 5 MG; Start 07/24/16 at 22:30 Diagnostic Test (Pha) (Accu-Chek) 1 ea 02 XX Last administered on 07/28/16 02: 54; Admin Dose 1 EA; Start 07/26/16 at 12:00 Clonidine HCl (Catapres-Tts 1 Patch) 1 patch Q7D TRANSDERM Last administered on 07/26/16 14:03; Admin Dose 1 PATCH; Start 07/26/16 at 13:00 Metoprolol Tartrate (Lopressor) 100 mg BID GTB Last administered on 07/30/16 09:02; Admin Dose 100 MG; Start 07/26/16 at 13:30 Clonidine HCl (Catapres-Tts 2 Patch) 1 patch Q7D TRANSDERM Last administered on 07/27/16 08:27; Admin Dose 1 PATCH; Start 07/27/16 at 07:00 Pantoprazole (Protonix Tab) 40 mg DAILY@06 PO Last administered on 07/29/16 05 :39; Admin Dose 40 MG; Start 07/28/16 at 06:00 Hydralazine HCl (Apresoline) 20 mg Q4 PRN IV ELEVATED BLOOD PRESSURE Last administered on 07/30/16 02:15; Admin Dose 20 MG; Start 07/28/16 at 02:00 Doxazosin Mesylate (Cardura) 2 mg HS PO Last administered on 07/28/16 20:13; Admin Dose 2 MG; Start 07/28/16 at 21:00 Polyethylene Glycol (Miralax) 17 gm DAILY PRN GTB CONSTIPATION Last administered on 07/28/16 20:22; Admin Dose 17 GM; Start 07/28/16 at 19:30 Lorazepam (Ativan) 1 mg Q4H PRN IV anxiety Last administered on 07/29/16 21:28 ; Admin Dose 1 MG; Start 07/29/16 at 06:30 PAOLA MOODY MD Jul 30, 2016 19:37
[2016-07-30] MEDS: ATORVASTATIN 10 MG TAB PO SCH (20:37)
[2016-07-30] MEDS: DOXAZOSIN 2 MG TAB PO SCH (20:38)
[2016-07-30] MEDS: INSULIN GLARGINE [LANtus] 3 ML PEN SC SCH (20:47)
[2016-07-30] MEDS: LORAZEPAM 2 MG INJ IV PRN (20:48)
[2016-07-31] VITALS (12 sets, daily range): BP systolic 85–167; BP diastolic 49–82; PULSE 69–85; RESP 18–20
[2016-07-31] MEDS: ACCUCHECK 2 AM XX SCH (02:00)
[2016-07-31] MEDS: PANTOPRAZOLE (EC) 40 MG TAB PO SCH (05:45)
[2016-07-31] MEDS: CHOLECALCIFEROL 400 UNITS TAB PO SCH (08:24)
[2016-07-31] MEDS: FERROUS SULFATE (EC) 325 MG TAB PO SCH ×2 (08:24→21:06)
[2016-07-31] MEDS: CALCIUM ACETATE 667 MG CAP PO SCH ×3 (08:24→17:41)
[2016-07-31] MEDS: SEVELAMER CARBONATE 0.8 GM PKT PO SCH ×3 (08:24→21:08)
[2016-07-31] MEDS: RIFAMPIN 300 MG CAP PO SCH (08:25)
[2016-07-31] MEDS: PYRIDOXINE 50 MG TAB PO SCH (08:25)
[2016-07-31] MEDS: Insulin NOVOLOG SS MILD Algorithm (SS with meals and bedtime) SC SCH ×4 (08:25→21:00)
[2016-07-31] MEDS: ISONIAZID 300 MG TAB PO SCH (08:25)
[2016-07-31] MEDS: FAMOTIDINE 20 MG TAB PO SCH (08:25)
[2016-07-31] MEDS: NIFEdipine (XL) 60 MG TAB PO SCH ×3 (08:32→21:06)
[2016-07-31] MEDS: BENAZEPRIL 40 MG TAB PO SCH ×3 (08:32→21:06)
[2016-07-31] MEDS: METOPROLOL 100 MG TAB GTB SCH ×3 (08:32→21:05)
[2016-07-31] MEDS: INSULIN ASPART [NOVOLOG] 3 ML PEN SC SCH ×2 (08:43→12:00)
[2016-07-31 10:08] LABS: ADD SCAN DIFF NO
[2016-07-31 10:11] LABS: BASOPHIL # 0.1 10^3/ul (0.0-0.1); BASOPHILS % 0.7 % (0.0-2.0); EOSINOPHILS # 0.1 10^3/ul (0.0-0.5); EOSINOPHILS % 1.6 % (0.0-7.0); HEMOGLOBIN 10.1 g/dl (14.0-18.0); LYMPHOCYTES # 0.8 10^3/ul (0.8-2.9); LYMPHOCYTES % 9.6 % (15.0-51.0); MEAN CORPUSCULAR HEMOGLOBIN 31.6 pg (29.0-33.0); MEAN CORPUSCULAR HGB CONC 33.7 g/dl (32.0-37.0); MEAN CORPUSCULAR VOLUME 93.8 fl (82.0-101.0); MEAN PLATELET VOLUME 10.4 fl (7.4-10.4); MONOCYTES % 11.9 % (0.0-11.0); NEUTROPHIL # 6.3 10^3/ul (1.6-7.5); NEUTROPHILS % 75.8 % (39.0-77.0); NUCLEATED RED BLOOD CELLS% 0.2 /100WBC (0.0-0.0); PLATELET COUNT 221 10^3/UL (140-415); RED CELL DISTRIBUTION WIDTH 15.2 % (11.5-14.5); WHITE BLOOD COUNT 8.3 10^3/ul (4.8-10.8)
--- NOTE | 2016-07-31 10:11 | PN ---
Date/Time of Note Date/Time of Note DATE: 07/31/16 TIME: 10:10 Assessment/Plan VTE Prophylaxis VTE Prophylaxis Intervention: other Lines/Catheters IV C[facility]ter Type [facility]from [facility] Central Line Urinary Cath still in place: No Assessment/Plan Assessment/Plan - Recurrent right pleural effusion consistent with empyema, cavitary lesions, plan for VATS, Plavix is on hold. -Hemoptysis, resolved. Dr. Dale is following in pulmonology consultation. Dr. Tucker is following an infection disease consultation. -Right former chest tube site bleeding, resolved. Dr. Martinez is following in thoracic surgery consultation. -Anemia of acute blood loss, patient had bleeding from the right femoral catheter as well as chest tube site on admission, status post blood transfusion , continue to monitor hemoglobin and hematocrit. Dr. Martinez is following in hematology consultation. 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 - End-stage renal disease, continue hemodialysis. Dr. Saunders is following in nephrology consultation. - Diabetes mellitus type 2 - glycemic control - Hypertension. Dr. De Santiago is following and cardiology consultation. Continue benazepril metoprolol hydralazine Procardia - Coronary artery disease, status post coronary artery bypass graft, s/p percutaneous transluminal coronary angioplasty and stent placement to left main and left anterior descending in 2014. - Permanent pacemaker. No acute issues. - Dyslipidemia. Continue Lipitor. Further recommendations based on clinical course. Plan of care discussed with Dr. Price. Subjective 24 Hr Interval Summary Constitutional: improved Eyes: no complaints ENT: no complaints Respiratory: no complaints, other Cardiovascular: no complaints Gastrointestinal: no complaints Genitourinary: no complaints Musculoskeletal: no complaints Skin: no complaints Neurologic: no complaints Endocrine: no complaints Lymphatic: no complaints Psychological: no complaints Exam/Review of Systems Vital Signs Vitals Vital Signs Date Time Temp Pulse Resp B/P Pulse Ox O2 Delivery O2 Flow Rate FiO2 07/31/16 08:19 69 07/31/16 07:44 97.6 20 102/59 97 07/28/16 04:00 Room Air Exam Constitutional: alert Psych: nl mood/affect Head: atraumatic Eyes: EOMI, nl sclera Neck: non-tender Respiratory: diminished breath sounds Cardiovascular: nl pulses Gastrointestinal: non-tender, soft Extremities: normal pulses Neurological: nl mental status, nl speech Skin: other (SP RTChest tube insertion) Lymph: nontender Results Result Diagram: 07/30/16 0740 07/30/16 0740 Results 24 hrs Laboratory Tests Test 07/30/16 11:58 07/30/16 17:59 07/30/16 20:35 07/31/16 08:31 Bedside Glucose 182 202 213 133 Medications Medications Current Medications Aspirin (Halfprin) 81 mg DAILY PO Last administered on 07/26/16 08:39; Admin Dose 81 MG; Start 07/25/16 at 09:00; Status Future Hold Atorvastatin Calcium (Lipitor) 10 mg QHS PO Last administered on 07/30/16 20: 37; Admin Dose 10 MG; Start 07/24/16 at 21:00 Benazepril HCl (Lotensin) 40 mg BID PO Last administered on 07/30/16 20:37; Admin Dose 40 MG; Start 07/24/16 at 21:00 Cholecalciferol (Vitamin D) 400 units DAILY PO Last administered on 07/31/16 08:24; Admin Dose 400 UNITS; Start 07/25/16 at 09:00 Famotidine (Pepcid) 20 mg DAILY PO Last administered on 07/31/16 08:25; Admin Dose 20 MG; Start 07/25/16 at 09:00 Ferrous Sulfate (Ferrous Sulfate (Ec)) 325 mg BID PO Last administered on 08:24; Admin Dose 325 MG; Start 07/24/16 at 21:00 Acetaminophen/ Hydrocodone Bitart ([place] (5/325)) 1 tab Q4H PRN PO PAIN; Start 07/24/16 at 17:00 Insulin Glargine (Lantus) 6 unit DAILY@20 SC Last administered on 07/30/16 20: 47; Admin Dose 6 UNIT; Start 07/24/16 at 20:00 Isoniazid (Isoniazid) 300 mg DAILY PO Last administered on 07/31/16 08:25; Admin Dose 300 MG; Start 07/24/16 at 15:30 Nifedipine (Procardia Xl) 60 mg BID PO Last administered on 07/30/16 20:37; Admin Dose 60 MG; Start 07/24/16 at 21:00 Pyridoxine HCl (Vitamin B6) 50 mg DAILY PO Last administered on 07/31/16 08:25 ; Admin Dose 50 MG; Start 07/25/16 at 09:00 Rifampin (Rifampin) 600 mg DAILY PO Last administered on 07/31/16 08:25; Admin Dose 600 MG; Start 07/25/16 at 09:00 Pyrazinamide (Pyrazinamide) 1,500 mg TuThSa@20 PO Last administered on 20:27; Admin Dose 1,500 MG; Start 07/24/16 at 20:00 Ethambutol HCl (Myambutol) 1,200 mg TuThSa@20 PO Last administered on 20:25; Admin Dose 1,200 MG; Start 07/24/16 at 20:00 Miscellaneous Information 1 ea NOTE XX ; Start 07/24/16 at 16:00 Glucose (Glutose) 15 gm Q15M PRN PO DECREASED GLUCOSE; Start 07/24/16 at 16:00 Glucose (Glutose) 22.5 gm Q15M PRN PO DECREASED GLUCOSE; Start 07/24/16 at 16: 00 Dextrose (D50w Syringe) 25 ml Q15M PRN IV DECREASED GLUCOSE; Start 07/24/16 at 16:00 Dextrose (D50w Syringe) 50 ml Q15M PRN IV DECREASED GLUCOSE; Start 07/24/16 at 16:00 Glucagon (Glucagen) 1 mg Q15M PRN IM DECREASED GLUCOSE; Start 07/24/16 at 16:00 Glucose (Glutose) 15 gm Q15M PRN BUCCAL DECREASED GLUCOSE; Start 07/24/16 at 16 :00 Ondansetron HCl (Zofran Inj) 4 mg Q4 PRN IV nausea Last administered on 21:28; Admin Dose 4 MG; Start 07/24/16 at 17:00 Hydromorphone HCl (Dilaudid) 1 mg Q4 PRN IV pain Last administered on 23:16; Admin Dose 1 MG; Start 07/24/16 at 17:00 Metoclopramide HCl (Reglan) 5 mg Q4H PRN IV NAUSEA Last administered on 10:05; Admin Dose 5 MG; Start 07/24/16 at 22:30 Diagnostic Test (Pha) (Accu-Chek) 1 ea 02 XX Last administered on 07/28/16 02: 54; Admin Dose 1 EA; Start 07/26/16 at 12:00 Clonidine HCl (Catapres-Tts 1 Patch) 1 patch Q7D TRANSDERM Last administered on 07/26/16 14:03; Admin Dose 1 PATCH; Start 07/26/16 at 13:00 Metoprolol Tartrate (Lopressor) 100 mg BID GTB Last administered on 07/30/16 20:36; Admin Dose 100 MG; Start 07/26/16 at 13:30 Clonidine HCl (Catapres-Tts 2 Patch) 1 patch Q7D TRANSDERM Last administered on 07/27/16 08:27; Admin Dose 1 PATCH; Start 07/27/16 at 07:00 Pantoprazole (Protonix Tab) 40 mg DAILY@06 PO Last administered on 07/31/16 05 :45; Admin Dose 40 MG; Start 07/28/16 at 06:00 Hydralazine HCl (Apresoline) 20 mg Q4 PRN IV ELEVATED BLOOD PRESSURE Last administered on 07/30/16 02:15; Admin Dose 20 MG; Start 07/28/16 at 02:00 Doxazosin Mesylate (Cardura) 2 mg HS PO Last administered on 07/30/16 20:38; Admin Dose 2 MG; Start 07/28/16 at 21:00 Polyethylene Glycol (Miralax) 17 gm DAILY PRN GTB CONSTIPATION Last administered on 07/28/16 20:22; Admin Dose 17 GM; Start 07/28/16 at 19:30 Lorazepam (Ativan) 1 mg Q4H PRN IV anxiety Last administered on 07/30/16 20:48 ; Admin Dose 1 MG; Start 07/29/16 at 06:30 PATRICIA RUEDA Jul 31, 2016 10:11
[2016-07-31 10:23] LABS: POTASSIUM 4.9 mmol/L (3.5-5.1)
[2016-07-31 10:26] LABS: CALCIUM 9.5 mg/dl (8.4-10.2); CREATININE 8.67 mg/dl (0.61-1.24)
--- NOTE | 2016-07-31 11:53 | CONS ---
Date/Time of Note Date/Time of Note DATE: 07/31/16 TIME: 11:51 Assessment/Plan Assessment/Plan Additional Assessment/Plan Assessment recommendations; 1. Patient admitted for recurrent right pleural effusion fairly recent VATS procedure. 2. End-stage renal disease, on hemodialysis. 3. History of coronary artery disease, prior CABG surgery. 4. CHF. 5. Ultimately pulmonary tuberculosis. Continue current treatment. Patient awaiting repeat VATS procedure. Consultation Date/Type/Reason Admit Date/Time Jul 24, 2016 at 12:53 Initial Consult Date 07/25/16 Type of Consultation: Pulmonary Referring Provider: EVA COX MD 24 HR Interval Summary Free Text/Dictation Patient condition stable. Has remained hemodynamically stable. Denies any shortness of breath, chest pain, coughing or hemoptysis. General exam; elderly male, currently in no distress awake and alert. Exam/Review of Systems Vital Signs Vitals Vital Signs Date Time Temp Pulse Resp B/P Pulse Ox O2 Delivery O2 Flow Rate FiO2 07/31/16 11:35 97.6 70 20 85/49 98 07/28/16 04:00 Room Air Exam HEENT examination; supple neck, no JVD. No lymphadenopathy. Midline trachea. No thyromegaly. Pharynx is clear Patient is edentulous. Chest examination; diminished breath sounds right lower lobe. There is a well- healed sternal scar. S1-S2 audible, no murmurs. Regular rhythm. Abdomen exam is; soft, nontender. No organomegaly. Bowel sounds audible. Extremity examination; trace peripheral edema. GOLD LETTERER examination; no focal deficit. Results Result Diagram: 07/31/1624 07/31/16 0920 Results 24 hrs Laboratory Tests Test 07/30/16 11:58 07/30/16 17:59 07/30/16 20:35 07/31/16 08:31 Bedside Glucose 182 202 213 133 Test 07/31/16 09:20 07/31/16 09:24 07/31/16 11:50 Sodium Level 137 Potassium Level 4.9 Chloride Level 101 Carbon Dioxide Level 24 Anion Gap 17 H Blood Urea Nitrogen 104 H Creatinine 8.67 H Glucose Level 154 Calcium Level 9.5 White Blood Count 8.3 Red Blood Count 3.20 L Hemoglobin 10.1 L Hematocrit 30.0 L Mean Corpuscular Volume 93.8 Mean Corpuscular Hemoglobin 31.6 Mean Corpuscular Hemoglobin Concent 33.7 Red Cell Distribution Width 15.2 H Platelet Count 221 Mean Platelet Volume 10.4 Neutrophils % 75.8 Lymphocytes % 9.6 L Monocytes % 11.9 H Eosinophils % 1.6 Basophils % 0.7 Nucleated Red Blood Cells % 0.2 H Neutrophils # 6.3 Lymphocytes # 0.8 Monocytes # 1.0 H Eosinophils # 0.1 Basophils # 0.1 Nucleated Red Blood Cells # 0.0 Bedside Glucose 140 Medications Medications Current Medications Aspirin (Halfprin) 81 mg DAILY PO Last administered on 07/26/16 08:39; Admin Dose 81 MG; Start 07/25/16 at 09:00; Status Future Hold Atorvastatin Calcium (Lipitor) 10 mg QHS PO Last administered on 07/30/16 20: 37; Admin Dose 10 MG; Start 07/24/16 at 21:00 Benazepril HCl (Lotensin) 40 mg BID PO Last administered on 07/31/16 10:38; Admin Dose 40 MG; Start 07/24/16 at 21:00 Cholecalciferol (Vitamin D) 400 units DAILY PO Last administered on 07/31/16 08:24; Admin Dose 400 UNITS; Start 07/25/16 at 09:00 Famotidine (Pepcid) 20 mg DAILY PO Last administered on 07/31/16 08:25; Admin Dose 20 MG; Start 07/25/16 at 09:00 Ferrous Sulfate (Ferrous Sulfate (Ec)) 325 mg BID PO Last administered on 08:24; Admin Dose 325 MG; Start 07/24/16 at 21:00 Acetaminophen/ Hydrocodone Bitart ([place] (5/325)) 1 tab Q4H PRN PO PAIN; Start 07/24/16 at 17:00 Insulin Glargine (Lantus) 6 unit DAILY@20 SC Last administered on 07/30/16 20: 47; Admin Dose 6 UNIT; Start 07/24/16 at 20:00 Isoniazid (Isoniazid) 300 mg DAILY PO Last administered on 07/31/16 08:25; Admin Dose 300 MG; Start 07/24/16 at 15:30 Nifedipine (Procardia Xl) 60 mg BID PO Last administered on 07/31/16 10:39; Admin Dose 60 MG; Start 07/24/16 at 21:00 Pyridoxine HCl (Vitamin B6) 50 mg DAILY PO Last administered on 07/31/16 08:25 ; Admin Dose 50 MG; Start 07/25/16 at 09:00 Rifampin (Rifampin) 600 mg DAILY PO Last administered on 07/31/16 08:25; Admin Dose 600 MG; Start 07/25/16 at 09:00 Miscellaneous Information 1 ea NOTE XX ; Start 07/24/16 at 16:00 Glucose (Glutose) 15 gm Q15M PRN PO DECREASED GLUCOSE; Start 07/24/16 at 16:00 Glucose (Glutose) 22.5 gm Q15M PRN PO DECREASED GLUCOSE; Start 07/24/16 at 16: 00 Dextrose (D50w Syringe) 25 ml Q15M PRN IV DECREASED GLUCOSE; Start 07/24/16 at 16:00 Dextrose (D50w Syringe) 50 ml Q15M PRN IV DECREASED GLUCOSE; Start 07/24/16 at 16:00 Glucagon (Glucagen) 1 mg Q15M PRN IM DECREASED GLUCOSE; Start 07/24/16 at 16:00 Glucose (Glutose) 15 gm Q15M PRN BUCCAL DECREASED GLUCOSE; Start 07/24/16 at 16 :00 Ondansetron HCl (Zofran Inj) 4 mg Q4 PRN IV nausea Last administered on 21:28; Admin Dose 4 MG; Start 07/24/16 at 17:00 Hydromorphone HCl (Dilaudid) 1 mg Q4 PRN IV pain Last administered on 23:16; Admin Dose 1 MG; Start 07/24/16 at 17:00 Metoclopramide HCl (Reglan) 5 mg Q4H PRN IV NAUSEA Last administered on 10:05; Admin Dose 5 MG; Start 07/24/16 at 22:30 Diagnostic Test (Pha) (Accu-Chek) 1 ea 02 XX Last administered on 07/28/16 02: 54; Admin Dose 1 EA; Start 07/26/16 at 12:00 Clonidine HCl (Catapres-Tts 1 Patch) 1 patch Q7D TRANSDERM Last administered on 07/26/16 14:03; Admin Dose 1 PATCH; Start 07/26/16 at 13:00 Metoprolol Tartrate (Lopressor) 100 mg BID GTB Last administered on 07/31/16 10:36; Admin Dose 100 MG; Start 07/26/16 at 13:30 Clonidine HCl (Catapres-Tts 2 Patch) 1 patch Q7D TRANSDERM Last administered on 07/27/16 08:27; Admin Dose 1 PATCH; Start 07/27/16 at 07:00 Pantoprazole (Protonix Tab) 40 mg DAILY@06 PO Last administered on 07/31/16 05 :45; Admin Dose 40 MG; Start 07/28/16 at 06:00 Hydralazine HCl (Apresoline) 20 mg Q4 PRN IV ELEVATED BLOOD PRESSURE Last administered on 07/30/16 02:15; Admin Dose 20 MG; Start 07/28/16 at 02:00 Doxazosin Mesylate (Cardura) 2 mg HS PO Last administered on 07/30/16 20:38; Admin Dose 2 MG; Start 07/28/16 at 21:00 Polyethylene Glycol (Miralax) 17 gm DAILY PRN GTB CONSTIPATION Last administered on 07/28/16 20:22; Admin Dose 17 GM; Start 07/28/16 at 19:30 Lorazepam (Ativan) 1 mg Q4H PRN IV anxiety Last administered on 07/30/16 20:48 ; Admin Dose 1 MG; Start 07/29/16 at 06:30 Ethambutol HCl (Myambutol) 900 mg TuThSa@20 PO ; Start 07/31/16 at 20:00 Pyrazinamide (Pyrazinamide) 1,250 mg TuThSa@20 PO ; Start 07/31/16 at 20:00 BOONE POLO 30, 2017 11:53
--- NOTE | 2016-07-31 12:57 | CONS ---
Date/Time of Note Date/Time of Note DATE: 07/31/16 TIME: 12:55 Assessment/Plan Assessment/Plan Chief Complaint/Hosp Course IMPRESSION: 1. Abnormal electrocardiogram, assess for acute coronary syndrome with no current chest pain and recently negative stress test.-negative troponin x 3 2. History of a percutaneous transluminal coronary angioplasty and stent placement to left main and left anterior descending in 2014. 3. History of coronary artery bypass graft surgery. 4. Video assisted thoracoscopic surgery pleurodesis with leakage from the chest tube site. 5. Shortness of breath. 6. End-stage renal disease on hemodialysis. 7. Tuberculosis, on therapy. 8. Hypertension 9. Diabetes mellitus. 10. Dyslipidemia. 11. Anemia-worsening s/p transfusion 12.Empyema/cavitary lesions by CT Recc: -Tele -Continue benazepril/BB/CCB/cardura and follow BP closely which is marginal and thus will d/c second clonidine TTS -Plavix/asa held in the setting of anemia/resume when possible-safe after repeat VATS procedure -HD for volume removal -Pnding repeat VATS/pleurodesis -Back on droplet precautions -continue TB treatment Problems: Consultation Date/Type/Reason Admit Date/Time Jul 24, 2016 at 12:53 Initial Consult Date 07/24/16 Type of Consultation: Cardiology Reason for Consultation HTN/abnl ecg Referring Provider: EVA COX MD Exam/Review of Systems Vital Signs Vitals Vital Signs Date Time Temp Pulse Resp B/P Pulse Ox O2 Delivery O2 Flow Rate FiO2 07/31/16 12:22 106/56 07/31/16 12:14 85 07/31/16 11:35 97.6 20 98 07/28/16 04:00 Room Air Exam Review of Systems: CONSTITUTIONAL: No fevers, chills. PULMONARY: No sob CARDIOVASCULAR: No chest pain/palpitations GASTROINTESTINAL: No nausea/vomiting. GENITOURINARY: No hematuria/dysuria. MUSCULOSKELETAL: No myagias/arthalgias. PSYCHIATRIC: The patient denies depression. NEUROLOGIC: lethargic Constitutional: alert, oriented Psych: no complaints ENMT: mucosa pink and moist Neck: jvd (9 cm water), supple Respiratory: diminished breath sounds (at bases/B) Cardiovascular: regular rate and rhythm Gastrointestinal: non-tender, soft Musculoskeletal: muscle tone (normnal) Extremities: edema (none) Neurological: lethargic, other (No focal deficits) Results Result Diagram: 07/31/16 0924 07/31/16 0920 Results 24 hrs Laboratory Tests Test 07/30/16 17:59 07/30/16 20:35 07/31/16 08:31 07/31/16 09:20 Bedside Glucose 202 213 133 Sodium Level 137 Potassium Level 4.9 Chloride Level 101 Carbon Dioxide Level 24 Anion Gap 17 H Blood Urea Nitrogen 104 H Creatinine 8.67 H Glucose Level 154 Calcium Level 9.5 Test 07/31/16 09:24 07/31/16 11:50 White Blood Count 8.3 Red Blood Count 3.20 L Hemoglobin 10.1 L Hematocrit 30.0 L Mean Corpuscular Volume 93.8 Mean Corpuscular Hemoglobin 31.6 Mean Corpuscular Hemoglobin Concent 33.7 Red Cell Distribution Width 15.2 H Platelet Count 221 Mean Platelet Volume 10.4 Neutrophils % 75.8 Lymphocytes % 9.6 L Monocytes % 11.9 H Eosinophils % 1.6 Basophils % 0.7 Nucleated Red Blood Cells % 0.2 H Neutrophils # 6.3 Lymphocytes # 0.8 Monocytes # 1.0 H Eosinophils # 0.1 Basophils # 0.1 Nucleated Red Blood Cells # 0.0 Bedside Glucose 140 Medications Medications Current Medications Aspirin (Halfprin) 81 mg DAILY PO Last administered on 07/26/16 08:39; Admin Dose 81 MG; Start 07/25/16 at 09:00; Status Future Hold Atorvastatin Calcium (Lipitor) 10 mg QHS PO Last administered on 07/30/16 20: 37; Admin Dose 10 MG; Start 07/24/16 at 21:00 Benazepril HCl (Lotensin) 40 mg BID PO Last administered on 07/31/16 10:38; Admin Dose 40 MG; Start 07/24/16 at 21:00 Cholecalciferol (Vitamin D) 400 units DAILY PO Last administered on 07/31/16 08:24; Admin Dose 400 UNITS; Start 07/25/16 at 09:00 Famotidine (Pepcid) 20 mg DAILY PO Last administered on 07/31/16 08:25; Admin Dose 20 MG; Start 07/25/16 at 09:00 Ferrous Sulfate (Ferrous Sulfate (Ec)) 325 mg BID PO Last administered on 08:24; Admin Dose 325 MG; Start 07/24/16 at 21:00 Acetaminophen/ Hydrocodone Bitart ([place] (5/325)) 1 tab Q4H PRN PO PAIN; Start 07/24/16 at 17:00 Insulin Glargine (Lantus) 6 unit DAILY@20 SC Last administered on 07/30/16 20: 47; Admin Dose 6 UNIT; Start 07/24/16 at 20:00 Isoniazid (Isoniazid) 300 mg DAILY PO Last administered on 07/31/16 08:25; Admin Dose 300 MG; Start 07/24/16 at 15:30 Nifedipine (Procardia Xl) 60 mg BID PO Last administered on 07/31/16 10:39; Admin Dose 60 MG; Start 07/24/16 at 21:00 Pyridoxine HCl (Vitamin B6) 50 mg DAILY PO Last administered on 07/31/16 08:25 ; Admin Dose 50 MG; Start 07/25/16 at 09:00 Rifampin (Rifampin) 600 mg DAILY PO Last administered on 07/31/16 08:25; Admin Dose 600 MG; Start 07/25/16 at 09:00 Miscellaneous Information 1 ea NOTE XX ; Start 07/24/16 at 16:00 Glucose (Glutose) 15 gm Q15M PRN PO DECREASED GLUCOSE; Start 07/24/16 at 16:00 Glucose (Glutose) 22.5 gm Q15M PRN PO DECREASED GLUCOSE; Start 07/24/16 at 16: 00 Dextrose (D50w Syringe) 25 ml Q15M PRN IV DECREASED GLUCOSE; Start 07/24/16 at 16:00 Dextrose (D50w Syringe) 50 ml Q15M PRN IV DECREASED GLUCOSE; Start 07/24/16 at 16:00 Glucagon (Glucagen) 1 mg Q15M PRN IM DECREASED GLUCOSE; Start 07/24/16 at 16:00 Glucose (Glutose) 15 gm Q15M PRN BUCCAL DECREASED GLUCOSE; Start 07/24/16 at 16 :00 Ondansetron HCl (Zofran Inj) 4 mg Q4 PRN IV nausea Last administered on 21:28; Admin Dose 4 MG; Start 07/24/16 at 17:00 Hydromorphone HCl (Dilaudid) 1 mg Q4 PRN IV pain Last administered on 23:16; Admin Dose 1 MG; Start 07/24/16 at 17:00 Metoclopramide HCl (Reglan) 5 mg Q4H PRN IV NAUSEA Last administered on 10:05; Admin Dose 5 MG; Start 07/24/16 at 22:30 Diagnostic Test (Pha) (Accu-Chek) 1 ea 02 XX Last administered on 07/28/16 02: 54; Admin Dose 1 EA; Start 07/26/16 at 12:00 Clonidine HCl (Catapres-Tts 1 Patch) 1 patch Q7D TRANSDERM Last administered on 07/26/16 14:03; Admin Dose 1 PATCH; Start 07/26/16 at 13:00 Metoprolol Tartrate (Lopressor) 100 mg BID GTB Last administered on 07/31/16 10:36; Admin Dose 100 MG; Start 07/26/16 at 13:30 Clonidine HCl (Catapres-Tts 2 Patch) 1 patch Q7D TRANSDERM Last administered on 07/27/16 08:27; Admin Dose 1 PATCH; Start 07/27/16 at 07:00 Pantoprazole (Protonix Tab) 40 mg DAILY@06 PO Last administered on 07/31/16 05 :45; Admin Dose 40 MG; Start 07/28/16 at 06:00 Hydralazine HCl (Apresoline) 20 mg Q4 PRN IV ELEVATED BLOOD PRESSURE Last administered on 07/30/16 02:15; Admin Dose 20 MG; Start 07/28/16 at 02:00 Doxazosin Mesylate (Cardura) 2 mg HS PO Last administered on 07/30/16 20:38; Admin Dose 2 MG; Start 07/28/16 at 21:00 Polyethylene Glycol (Miralax) 17 gm DAILY PRN GTB CONSTIPATION Last administered on 07/28/16 20:22; Admin Dose 17 GM; Start 07/28/16 at 19:30 Lorazepam (Ativan) 1 mg Q4H PRN IV anxiety Last administered on 07/30/16 20:48 ; Admin Dose 1 MG; Start 07/29/16 at 06:30 Ethambutol HCl (Myambutol) 900 mg TuThSa@20 PO ; Start 3/30/17 at 20:00 Pyrazinamide (Pyrazinamide) 1,250 mg TuThSa@20 PO ; Start 07/31/16 at 20:00 SHERITA SCOTT Jul 31, 2016 12:57
--- NOTE | 2016-07-31 13:50 | CONS ---
Date/Time of Note Date/Time of Note DATE: 07/31/16 TIME: 13:49 Consult Date/Type/Reason Admit Date/Time Jul 24, 2016 at 12:53 Initial Consult Date 07/25/16 Type of Consultation: ID Reason for Consultation TB Ordering Provider: EVA COX MD Subjective Pt did not have new complaints. He refused the physical exam by covering his head and body with a blanket Objective Vital Signs Date Time Temp Pulse Resp B/P Pulse Ox O2 Delivery O2 Flow Rate FiO2 07/31/16 12:22 106/56 07/31/16 12:14 85 07/31/16 11:35 97.6 20 98 07/28/16 04:00 Room Air Exam NAD refused the rest of the exam as above Results/Medications Result Diagram: 07/31/16 0924 07/31/16 0920 Results 24 hrs Laboratory Tests Test 07/30/16 17:59 07/30/16 20:35 07/31/16 08:31 07/31/16 09:20 Bedside Glucose 202 213 133 Sodium Level 137 Potassium Level 4.9 Chloride Level 101 Carbon Dioxide Level 24 Anion Gap 17 H Blood Urea Nitrogen 104 H Creatinine 8.67 H Glucose Level 154 Calcium Level 9.5 Test 07/31/16 09:24 07/31/16 11:50 White Blood Count 8.3 Red Blood Count 3.20 L Hemoglobin 10.1 L Hematocrit 30.0 L Mean Corpuscular Volume 93.8 Mean Corpuscular Hemoglobin 31.6 Mean Corpuscular Hemoglobin Concent 33.7 Red Cell Distribution Width 15.2 H Platelet Count 221 Mean Platelet Volume 10.4 Neutrophils % 75.8 Lymphocytes % 9.6 L Monocytes % 11.9 H Eosinophils % 1.6 Basophils % 0.7 Nucleated Red Blood Cells % 0.2 H Neutrophils # 6.3 Lymphocytes # 0.8 Monocytes # 1.0 H Eosinophils # 0.1 Basophils # 0.1 Nucleated Red Blood Cells # 0.0 Bedside Glucose 140 Medications Current Medications Aspirin (Halfprin) 81 mg DAILY PO Last administered on 07/26/16 08:39; Admin Dose 81 MG; Start 07/25/16 at 09:00; Status Future Hold Atorvastatin Calcium (Lipitor) 10 mg QHS PO Last administered on 07/30/16 20: 37; Admin Dose 10 MG; Start 07/24/16 at 21:00 Benazepril HCl (Lotensin) 40 mg BID PO Last administered on 07/31/16 10:38; Admin Dose 40 MG; Start 07/24/16 at 21:00 Cholecalciferol (Vitamin D) 400 units DAILY PO Last administered on 07/31/16 08:24; Admin Dose 400 UNITS; Start 07/25/16 at 09:00 Famotidine (Pepcid) 20 mg DAILY PO Last administered on 07/31/16 08:25; Admin Dose 20 MG; Start 07/25/16 at 09:00 Ferrous Sulfate (Ferrous Sulfate (Ec)) 325 mg BID PO Last administered on 08:24; Admin Dose 325 MG; Start 07/24/16 at 21:00 Acetaminophen/ Hydrocodone Bitart ([place] (5/325)) 1 tab Q4H PRN PO PAIN; Start 07/24/16 at 17:00 Insulin Glargine (Lantus) 6 unit DAILY@20 SC Last administered on 07/30/16 20: 47; Admin Dose 6 UNIT; Start 07/24/16 at 20:00 Isoniazid (Isoniazid) 300 mg DAILY PO Last administered on 07/31/16 08:25; Admin Dose 300 MG; Start 07/24/16 at 15:30 Nifedipine (Procardia Xl) 60 mg BID PO Last administered on 07/31/16 10:39; Admin Dose 60 MG; Start 07/24/16 at 21:00 Pyridoxine HCl (Vitamin B6) 50 mg DAILY PO Last administered on 07/31/16 08:25 ; Admin Dose 50 MG; Start 07/25/16 at 09:00 Rifampin (Rifampin) 600 mg DAILY PO Last administered on 07/31/16 08:25; Admin Dose 600 MG; Start 07/25/16 at 09:00 Miscellaneous Information 1 ea NOTE XX ; Start 07/24/16 at 16:00 Glucose (Glutose) 15 gm Q15M PRN PO DECREASED GLUCOSE; Start 07/24/16 at 16:00 Glucose (Glutose) 22.5 gm Q15M PRN PO DECREASED GLUCOSE; Start 07/24/16 at 16: 00 Dextrose (D50w Syringe) 25 ml Q15M PRN IV DECREASED GLUCOSE; Start 07/24/16 at 16:00 Dextrose (D50w Syringe) 50 ml Q15M PRN IV DECREASED GLUCOSE; Start 07/24/16 at 16:00 Glucagon (Glucagen) 1 mg Q15M PRN IM DECREASED GLUCOSE; Start 07/24/16 at 16:00 Glucose (Glutose) 15 gm Q15M PRN BUCCAL DECREASED GLUCOSE; Start 07/24/16 at 16 :00 Ondansetron HCl (Zofran Inj) 4 mg Q4 PRN IV nausea Last administered on 21:28; Admin Dose 4 MG; Start 07/24/16 at 17:00 Hydromorphone HCl (Dilaudid) 1 mg Q4 PRN IV pain Last administered on 23:16; Admin Dose 1 MG; Start 07/24/16 at 17:00 Metoclopramide HCl (Reglan) 5 mg Q4H PRN IV NAUSEA Last administered on 10:05; Admin Dose 5 MG; Start 07/24/16 at 22:30 Diagnostic Test (Pha) (Accu-Chek) 1 ea 02 XX Last administered on 07/28/16 02: 54; Admin Dose 1 EA; Start 07/26/16 at 12:00 Metoprolol Tartrate (Lopressor) 100 mg BID GTB Last administered on 07/31/16 10:36; Admin Dose 100 MG; Start 07/26/16 at 13:30 Clonidine HCl (Catapres-Tts 2 Patch) 1 patch Q7D TRANSDERM Last administered on 07/27/16 08:27; Admin Dose 1 PATCH; Start 07/27/16 at 07:00 Pantoprazole (Protonix Tab) 40 mg DAILY@06 PO Last administered on 07/31/16 05 :45; Admin Dose 40 MG; Start 07/28/16 at 06:00 Hydralazine HCl (Apresoline) 20 mg Q4 PRN IV ELEVATED BLOOD PRESSURE Last administered on 07/30/16 02:15; Admin Dose 20 MG; Start 07/28/16 at 02:00 Doxazosin Mesylate (Cardura) 2 mg HS PO Last administered on 07/30/16 20:38; Admin Dose 2 MG; Start 07/28/16 at 21:00 Polyethylene Glycol (Miralax) 17 gm DAILY PRN GTB CONSTIPATION Last administered on 07/28/16 20:22; Admin Dose 17 GM; Start 07/28/16 at 19:30 Lorazepam (Ativan) 1 mg Q4H PRN IV anxiety Last administered on 07/30/16 20:48 ; Admin Dose 1 MG; Start 07/29/16 at 06:30 Ethambutol HCl (Myambutol) 900 mg TuThSa@20 PO ; Start 07/31/16 at 20:00 Pyrazinamide (Pyrazinamide) 1,250 mg TuThSa@20 PO ; Start 07/31/16 at 20:00 Assessment/Plan Chief Complaint/Hosp Course assessment/impression - possible tubercular empyema: R sided complex loculated air containing empyemas , visceral and parietal pleural calcifications. - a 35 mm lesion with possible cavitation in the anterior inferior RUL, possible recurrent tuberculosis - high risk for TB: history (originally from [facility], spends one month of each year in [facility], last in 09/2015), medical history (DM, ESRD), laboratory findings (positive quantiferon TB gold, granulomatous inflammation with focal necrosis on Bx of pleura) - AFB smear was negative x3, also M. tuberculosis DNA probe to the 1st sputum sample was undetectable in early 07/2016 - s/p R VATS, total pulmonary decortication, R pleurodesis on 06/30/2016. Biopsy was negative for fungal stain and AFB stain (micro lab and pathology department), as well as malignancy. It showed granulomatous inflammation with focal necrosis and extensive hyalinization. Chest tube was removed - h/o recurrent pleural effusion requiring thoracentesis approximately once a year, last performed in 04/2016 prior to this admission - positive quantiferon TB gold status of unknown duration. Per Pt, his past PPD was done in 2013, and was negative. - Our infection numerical control machine machinist Lindsey contacted the TB control unit at [facility]: we learned on 07/11/2016 that Pt has h/o mycobacterial tuberculosis infection in 1997 and was treated between 1997 and 1998. - DM - ESRD on HD - CAD s/p CABG in 2010 and cardiac stent in 2013 - HIV screen negative in 07/2016 tested at [facility] - nausea, Pt has been taking TB meds according to his RN recommendations - repeat AFB smear and culture x3, added MTB DNA probe to the 1st sample (Yuriy at micro lab) - continue renally dosed RIPE plus vitamin B6 supplement (07/12/2016-) - will coordinate the management with infection control and TB unit re. thoracotomy, anti-TB meds management d/w Pt, his RN Problems: YUMIKO NICHOLSON M.D. Jul 31, 2016 13:50
--- NOTE | 2016-07-31 19:47 | CONS ---
Date/Time of Note Date/Time of Note DATE: 07/31/16 TIME: 19:46 Assessment/Plan Assessment/Plan Chief Complaint/Hosp Course IMPRESSION: 1. Recurrent pleural effusions. 2. Lung infiltrate./cavitary lesion 3. chronic lung disease. 4. Hypertension. 5. Diabetes mellitus. 6. End-stage renal disease. 7. anemia. 8. cad. 9. Leukocytosis.better 10. ashd 11. s/p vats. 12. The patient on anti-tuberculosis treatment. 13. 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 PLAN HD refuse by pt for today per id and surgery Problems: Consultation Date/Type/Reason Admit Date/Time Jul 24, 2016 at 12:53 Initial Consult Date 07/25/16 Type of Consultation: renal Referring Provider: EVA COX MD 24 HR Interval Summary Constitutional: no complaints, other (refusing hd today) Exam/Review of Systems Vital Signs Vitals Vital Signs Date Time Temp Pulse Resp B/P Pulse Ox O2 Delivery O2 Flow Rate FiO2 07/31/16 16:15 69 07/31/16 15:49 97.4 20 106/56 96 07/28/16 04:00 Room Air Exam Neck: supple Respiratory: clear to auscultation Cardiovascular: regular rate and rhythm Gastrointestinal: soft Musculoskeletal: nl extremities to inspection Extremities: normal pulses Results Result Diagram: 07/31/16 0924 07/31/16 0920 Results 24 hrs Laboratory Tests Test 07/30/16 20:35 07/31/16 08:31 07/31/16 09:20 07/31/16 09:24 Bedside Glucose 213 133 Sodium Level 137 Potassium Level 4.9 Chloride Level 101 Carbon Dioxide Level 24 Anion Gap 17 H Blood Urea Nitrogen 104 H Creatinine 8.67 H Glucose Level 154 Calcium Level 9.5 White Blood Count 8.3 Red Blood Count 3.20 L Hemoglobin 10.1 L Hematocrit 30.0 L Mean Corpuscular Volume 93.8 Mean Corpuscular Hemoglobin 31.6 Mean Corpuscular Hemoglobin Concent 33.7 Red Cell Distribution Width 15.2 H Platelet Count 221 Mean Platelet Volume 10.4 Neutrophils % 75.8 Lymphocytes % 9.6 L Monocytes % 11.9 H Eosinophils % 1.6 Basophils % 0.7 Nucleated Red Blood Cells % 0.2 H Neutrophils # 6.3 Lymphocytes # 0.8 Monocytes # 1.0 H Eosinophils # 0.1 Basophils # 0.1 Nucleated Red Blood Cells # 0.0 Test 07/31/16 11:50 07/31/16 17:39 Bedside Glucose 140 132 Medications Medications Current Medications Aspirin (Halfprin) 81 mg DAILY PO Last administered on 07/26/16 08:39; Admin Dose 81 MG; Start 07/25/16 at 09:00; Status Future Hold Atorvastatin Calcium (Lipitor) 10 mg QHS PO Last administered on 07/30/16 20: 37; Admin Dose 10 MG; Start 07/24/16 at 21:00 Benazepril HCl (Lotensin) 40 mg BID PO Last administered on 07/31/16 10:38; Admin Dose 40 MG; Start 07/24/16 at 21:00 Cholecalciferol (Vitamin D) 400 units DAILY PO Last administered on 07/31/16 08:24; Admin Dose 400 UNITS; Start 07/25/16 at 09:00 Famotidine (Pepcid) 20 mg DAILY PO Last administered on 07/31/16 08:25; Admin Dose 20 MG; Start 07/25/16 at 09:00 Ferrous Sulfate (Ferrous Sulfate (Ec)) 325 mg BID PO Last administered on 08:24; Admin Dose 325 MG; Start 07/24/16 at 21:00 Acetaminophen/ Hydrocodone Bitart ([place] (5/325)) 1 tab Q4H PRN PO PAIN; Start 07/24/16 at 17:00 Insulin Glargine (Lantus) 6 unit DAILY@20 SC Last administered on 07/30/16 20: 47; Admin Dose 6 UNIT; Start 07/24/16 at 20:00 Isoniazid (Isoniazid) 300 mg DAILY PO Last administered on 07/31/16 08:25; Admin Dose 300 MG; Start 07/24/16 at 15:30 Nifedipine (Procardia Xl) 60 mg BID PO Last administered on 07/31/16 10:39; Admin Dose 60 MG; Start 07/24/16 at 21:00 Pyridoxine HCl (Vitamin B6) 50 mg DAILY PO Last administered on 07/31/16 08:25 ; Admin Dose 50 MG; Start 07/25/16 at 09:00 Rifampin (Rifampin) 600 mg DAILY PO Last administered on 07/31/16 08:25; Admin Dose 600 MG; Start 07/25/16 at 09:00 Miscellaneous Information 1 ea NOTE XX ; Start 07/24/16 at 16:00 Glucose (Glutose) 15 gm Q15M PRN PO DECREASED GLUCOSE; Start 07/24/16 at 16:00 Glucose (Glutose) 22.5 gm Q15M PRN PO DECREASED GLUCOSE; Start 07/24/16 at 16: 00 Dextrose (D50w Syringe) 25 ml Q15M PRN IV DECREASED GLUCOSE; Start 07/24/16 at 16:00 Dextrose (D50w Syringe) 50 ml Q15M PRN IV DECREASED GLUCOSE; Start 07/24/16 at 16:00 Glucagon (Glucagen) 1 mg Q15M PRN IM DECREASED GLUCOSE; Start 07/24/16 at 16:00 Glucose (Glutose) 15 gm Q15M PRN BUCCAL DECREASED GLUCOSE; Start 07/24/16 at 16 :00 Ondansetron HCl (Zofran Inj) 4 mg Q4 PRN IV nausea Last administered on 21:28; Admin Dose 4 MG; Start 07/24/16 at 17:00 Hydromorphone HCl (Dilaudid) 1 mg Q4 PRN IV pain Last administered on 23:16; Admin Dose 1 MG; Start 07/24/16 at 17:00 Metoclopramide HCl (Reglan) 5 mg Q4H PRN IV NAUSEA Last administered on 10:05; Admin Dose 5 MG; Start 07/24/16 at 22:30 Diagnostic Test (Pha) (Accu-Chek) 1 ea 02 XX Last administered on 07/28/16 02: 54; Admin Dose 1 EA; Start 07/26/16 at 12:00 Metoprolol Tartrate (Lopressor) 100 mg BID GTB Last administered on 07/31/16 10:36; Admin Dose 100 MG; Start 07/26/16 at 13:30 Clonidine HCl (Catapres-Tts 2 Patch) 1 patch Q7D TRANSDERM Last administered on 07/27/16 08:27; Admin Dose 1 PATCH; Start 07/27/16 at 07:00 Pantoprazole (Protonix Tab) 40 mg DAILY@06 PO Last administered on 07/31/16 05 :45; Admin Dose 40 MG; Start 07/28/16 at 06:00 Hydralazine HCl (Apresoline) 20 mg Q4 PRN IV ELEVATED BLOOD PRESSURE Last administered on 07/30/16 02:15; Admin Dose 20 MG; Start 07/28/16 at 02:00 Doxazosin Mesylate (Cardura) 2 mg HS PO Last administered on 07/30/16 20:38; Admin Dose 2 MG; Start 07/28/16 at 21:00 Polyethylene Glycol (Miralax) 17 gm DAILY PRN GTB CONSTIPATION Last administered on 07/28/16 20:22; Admin Dose 17 GM; Start 07/28/16 at 19:30 Lorazepam (Ativan) 1 mg Q4H PRN IV anxiety Last administered on 07/30/16 20:48 ; Admin Dose 1 MG; Start 07/29/16 at 06:30 Ethambutol HCl (Myambutol) 900 mg TuThSa@20 PO ; Start 07/31/16 at 20:00 Pyrazinamide (Pyrazinamide) 1,250 mg TuThSa@20 PO ; Start 07/31/16 at 20:00 PAOLA MOODY MD Jul 31, 2016 19:47
[2016-07-31] MEDS: INSULIN GLARGINE [LANtus] 3 ML PEN SC SCH (20:00)
[2016-07-31] MEDS: PYRAZINAMIDE 500 MG TAB PO SCH (20:00)
[2016-07-31] MEDS: ONDANSETRON 4 MG INJ IV PRN (21:05)
[2016-07-31] MEDS: DOXAZOSIN 2 MG TAB PO SCH (21:06)
[2016-07-31] MEDS: ETHAMBUTOL 400 MG TAB PO SCH (21:07)
[2016-07-31] MEDS: HYDROmorphONE 1 MG/ML SYG IV PRN (21:07)
[2016-07-31] MEDS: ATORVASTATIN 10 MG TAB PO SCH (21:07)
--- NOTE | 2016-07-31 21:47 | PN ---
Date/Time of Note Date/Time of Note DATE: 07/31/16 TIME: 21:44 Assessment/Plan Lines/Catheters IV Catheter Type (from Nrsg): Central Line Jonas in Place (from Nrsg): No Assessment/Plan Chief Complaint/Hosp Course IMPRESSION: Right chest tube site bleeding, which has now subsided completely. Hgb stable Would monitor the hemoglobin levels and stop the antiplatelet. plan for VATS tomorrow if OR time is available this week Problems: Subjective 24 Hr Interval Summary Constitutional: improved Pain Control: mild Exam/Review of Systems Vital Signs Vitals Vital Signs Date Time Temp Pulse Resp B/P Pulse Ox O2 Delivery O2 Flow Rate FiO2 07/31/16 20:57 97.8 69 18 119/59 92 07/28/16 04:00 Room Air Exam Eyes: No EOMI, No PERRL, No fundi, disc, No icteric, No nl conjunctiva, No nl lids, No nl sclera, No other Neck: non-tender, supple Respiratory: clear to auscultation, normal air movement Cardiovascular: nl pulses, regular rate and rhythm Results Result Diagram: 07/31/16 0924 07/31/16 0920 LILIA FELIZ MD Jul 31, 2016 21:47
[2016-08-01] VITALS (17 sets, daily range): BP systolic 100–132; BP diastolic 53–71; PULSE 69–78; RESP 16–18
[2016-08-01] MEDS: ACCUCHECK 2 AM XX SCH (02:00)
[2016-08-01] MEDS: HYDROmorphONE 1 MG/ML SYG IV PRN (04:18)
[2016-08-01] MEDS: PANTOPRAZOLE (EC) 40 MG TAB PO SCH (06:36)
--- NOTE | 2016-08-01 06:59 | CONS ---
Date/Time of Note Date/Time of Note DATE: 08/01/16 TIME: 06:56 Assessment/Plan Assessment/Plan Additional Assessment/Plan Assessment recommendations; 1. Patient admitted with recurrent right pleural effusion with recent VATS. 2. Possibly pulmonary tuberculous. 3. End-stage renal disease, on hemodialysis. 4. History of hypertension or diabetes. 5. History of coronary artery bypass surgery. 6. History of CHF. Continue current treatment. Patient awaiting repeat VATS procedure on the right side. Consultation Date/Type/Reason Admit Date/Time Jul 24, 2016 at 12:53 Initial Consult Date 07/25/16 Type of Consultation: Pulmonary Referring Provider: EVA COX MD 24 HR Interval Summary Free Text/Dictation Patient condition remains stable. Denies any shortness of breath. Any chest pain. Coughing, hemoptysis. General exam; elderly male, currently in no distress. Awake and alert. Exam/Review of Systems Vital Signs Vitals Vital Signs Date Time Temp Pulse Resp B/P Pulse Ox O2 Delivery O2 Flow Rate FiO2 08/01/16 04:30 69 08/01/16 04:14 98.6 18 101/59 92 Intake and Output 07/31/16 07/31/16 08/01/16 15:00 23:00 07:00 Intake Total 300 ml Balance 300 ml Exam HEENT examination; supple neck, no lymphadenopathy. No thyromegaly. Positive JVD. Pharynx is clear. Pupils are midsize reactive to light. Chest examination; diminished breath sounds right lower lobe, rest of the lung evans are clear. S1-S2 audible, no murmurs. Regular rhythm. There is a well- healed sternal scar. Abdomen examination; soft, nontender. No organomegaly. Bowel sounds are audible. Extremity exam is; no peripheral edema. 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 Results Result Diagram: 07/31/16 0924 07/31/16 0920 Results 24 hrs Laboratory Tests Test 07/31/16 08:31 07/31/16 09:20 07/31/16 09:24 07/31/16 11:50 Bedside Glucose 133 140 Sodium Level 137 Potassium Level 4.9 Chloride Level 101 Carbon Dioxide Level 24 Anion Gap 17 H Blood Urea Nitrogen 104 H Creatinine 8.67 H Glucose Level 154 Calcium Level 9.5 White Blood Count 8.3 Red Blood Count 3.20 L Hemoglobin 10.1 L Hematocrit 30.0 L Mean Corpuscular Volume 93.8 Mean Corpuscular Hemoglobin 31.6 Mean Corpuscular Hemoglobin Concent 33.7 Red Cell Distribution Width 15.2 H Platelet Count 221 Mean Platelet Volume 10.4 Neutrophils % 75.8 Lymphocytes % 9.6 L Monocytes % 11.9 H Eosinophils % 1.6 Basophils % 0.7 Nucleated Red Blood Cells % 0.2 H Neutrophils # 6.3 Lymphocytes # 0.8 Monocytes # 1.0 H Eosinophils # 0.1 Basophils # 0.1 Nucleated Red Blood Cells # 0.0 Test 07/31/16 17:39 07/31/16 20:57 08/01/16 04:23 Bedside Glucose 132 165 147 Medications Medications Current Medications Aspirin (Halfprin) 81 mg DAILY PO Last administered on 07/26/16 08:39; Admin Dose 81 MG; Start 07/25/16 at 09:00; Status Future Hold Atorvastatin Calcium (Lipitor) 10 mg QHS PO Last administered on 07/31/16 21: 07; Admin Dose 10 MG; Start 07/24/16 at 21:00 Benazepril HCl (Lotensin) 40 mg BID PO Last administered on 07/31/16 21:06; Admin Dose 40 MG; Start 07/24/16 at 21:00 Cholecalciferol (Vitamin D) 400 units DAILY PO Last administered on 07/31/16 08:24; Admin Dose 400 UNITS; Start 07/25/16 at 09:00 Famotidine (Pepcid) 20 mg DAILY PO Last administered on 07/31/16 08:25; Admin Dose 20 MG; Start 07/25/16 at 09:00 Ferrous Sulfate (Ferrous Sulfate (Ec)) 325 mg BID PO Last administered on 21:06; Admin Dose 325 MG; Start 07/24/16 at 21:00 Acetaminophen/ Hydrocodone Bitart ([place] (5/325)) 1 tab Q4H PRN PO PAIN; Start 07/24/16 at 17:00 Insulin Glargine (Lantus) 6 unit DAILY@20 SC Last administered on 07/30/16 20: 47; Admin Dose 6 UNIT; Start 07/24/16 at 20:00 Isoniazid (Isoniazid) 300 mg DAILY PO Last administered on 07/31/16 08:25; Admin Dose 300 MG; Start 07/24/16 at 15:30 Nifedipine (Procardia Xl) 60 mg BID PO Last administered on 07/31/16 21:06; Admin Dose 60 MG; Start 07/24/16 at 21:00 Pyridoxine HCl (Vitamin B6) 50 mg DAILY PO Last administered on 07/31/16 08:25 ; Admin Dose 50 MG; Start 07/25/16 at 09:00 Rifampin (Rifampin) 600 mg DAILY PO Last administered on 07/31/16 08:25; Admin Dose 600 MG; Start 07/25/16 at 09:00 Miscellaneous Information 1 ea NOTE XX ; Start 07/24/16 at 16:00 Glucose (Glutose) 15 gm Q15M PRN PO DECREASED GLUCOSE; Start 07/24/16 at 16:00 Glucose (Glutose) 22.5 gm Q15M PRN PO DECREASED GLUCOSE; Start 07/24/16 at 16: 00 Dextrose (D50w Syringe) 25 ml Q15M PRN IV DECREASED GLUCOSE; Start 07/24/16 at 16:00 Dextrose (D50w Syringe) 50 ml Q15M PRN IV DECREASED GLUCOSE; Start 07/24/16 at 16:00 Glucagon (Glucagen) 1 mg Q15M PRN IM DECREASED GLUCOSE; Start 07/24/16 at 16:00 Glucose (Glutose) 15 gm Q15M PRN BUCCAL DECREASED GLUCOSE; Start 07/24/16 at 16 :00 Ondansetron HCl (Zofran Inj) 4 mg Q4 PRN IV nausea Last administered on 21:05; Admin Dose 4 MG; Start 07/24/16 at 17:00 Hydromorphone HCl (Dilaudid) 1 mg Q4 PRN IV pain Last administered on 04:18; Admin Dose 1 MG; Start 07/24/16 at 17:00 Metoclopramide HCl (Reglan) 5 mg Q4H PRN IV NAUSEA Last administered on 10:05; Admin Dose 5 MG; Start 07/24/16 at 22:30 Diagnostic Test (Pha) (Accu-Chek) 1 ea 02 XX Last administered on 07/28/16 02: 54; Admin Dose 1 EA; Start 07/26/16 at 12:00 Metoprolol Tartrate (Lopressor) 100 mg BID GTB Last administered on 07/31/16 21:05; Admin Dose 100 MG; Start 07/26/16 at 13:30 Clonidine HCl (Catapres-Tts 2 Patch) 1 patch Q7D TRANSDERM Last administered on 07/27/16 08:27; Admin Dose 1 PATCH; Start 07/27/16 at 07:00 Pantoprazole (Protonix Tab) 40 mg DAILY@06 PO Last administered on 08/01/16 06 :36; Admin Dose 40 MG; Start 07/28/16 at 06:00 Hydralazine HCl (Apresoline) 20 mg Q4 PRN IV ELEVATED BLOOD PRESSURE Last administered on 07/30/16 02:15; Admin Dose 20 MG; Start 07/28/16 at 02:00 Doxazosin Mesylate (Cardura) 2 mg HS PO Last administered on 07/31/16 21:06; Admin Dose 2 MG; Start 07/28/16 at 21:00 Polyethylene Glycol (Miralax) 17 gm DAILY PRN GTB CONSTIPATION Last administered on 07/28/16 20:22; Admin Dose 17 GM; Start 07/28/16 at 19:30 Lorazepam (Ativan) 1 mg Q4H PRN IV anxiety Last administered on 07/30/16 20:48 ; Admin Dose 1 MG; Start 07/29/16 at 06:30 Ethambutol HCl (Myambutol) 900 mg TuThSa@20 PO Last administered on 07/31/16 21:07; Admin Dose 900 MG; Start 07/31/16 at 20:00 Pyrazinamide (Pyrazinamide) 1,250 mg TuThSa@20 PO ; Start 07/31/16 at 20:00 BOONE POLO Aug 01, 2016 06:58
[2016-08-01] MEDS: CALCIUM ACETATE 667 MG CAP PO SCH ×3 (08:00→18:38)
[2016-08-01] MEDS: SEVELAMER CARBONATE 0.8 GM PKT PO SCH ×3 (08:00→18:37)
[2016-08-01] MEDS: INSULIN ASPART [NOVOLOG] 3 ML PEN SC SCH ×2 (08:00→13:21)
[2016-08-01] MEDS: METOPROLOL 100 MG TAB GTB SCH ×3 (08:26→21:07)
[2016-08-01] MEDS: FERROUS SULFATE (EC) 325 MG TAB PO SCH ×3 (08:26→21:08)
[2016-08-01] MEDS: NIFEdipine (XL) 60 MG TAB PO SCH ×3 (08:27→21:08)
[2016-08-01] MEDS: FAMOTIDINE 20 MG TAB PO SCH ×2 (08:27→13:06)
[2016-08-01] MEDS: PYRIDOXINE 50 MG TAB PO SCH ×2 (08:27→13:05)
[2016-08-01] MEDS: BENAZEPRIL 40 MG TAB PO SCH ×3 (08:27→21:08)
[2016-08-01] MEDS: CHOLECALCIFEROL 400 UNITS TAB PO SCH ×2 (08:27→13:05)
[2016-08-01] MEDS: RIFAMPIN 300 MG CAP PO SCH (08:32)
[2016-08-01] MEDS: ISONIAZID 300 MG TAB PO SCH (08:32)
[2016-08-01] MEDS: Insulin NOVOLOG SS MILD Algorithm (SS with meals and bedtime) SC SCH ×4 (09:15→21:06)
[2016-08-01 10:45] LABS: ADD SCAN DIFF NO
[2016-08-01 10:59] LABS: BASOPHIL # 0.1 10^3/ul (0.0-0.1); BASOPHILS % 0.7 % (0.0-2.0); EOSINOPHILS # 0.1 10^3/ul (0.0-0.5); EOSINOPHILS % 0.7 % (0.0-7.0); HEMATOCRIT 32.7 % (42.0-52.0); HEMOGLOBIN 10.7 g/dl (14.0-18.0); LYMPHOCYTES # 0.8 10^3/ul (0.8-2.9); LYMPHOCYTES % 8.3 % (15.0-51.0); MEAN CORPUSCULAR HGB CONC 32.7 g/dl (32.0-37.0); MEAN CORPUSCULAR VOLUME 94.8 fl (82.0-101.0); MONOCYTE # 1.2 10^3/ul (0.3-0.9); MONOCYTES % 12.1 % (0.0-11.0); NEUTROPHIL # 7.4 10^3/ul (1.6-7.5); NEUTROPHILS % 77.7 % (39.0-77.0); PLATELET COUNT 234 10^3/UL (140-415); RED BLOOD COUNT 3.45 10^6/ul (4.70-6.10); RED CELL DISTRIBUTION WIDTH 15.7 % (11.5-14.5); WHITE BLOOD COUNT 9.5 10^3/ul (4.8-10.8)
[2016-08-01 11:07] LABS: POTASSIUM 5.7 mmol/L (3.5-5.1)
[2016-08-01 11:10] LABS: CREATININE 9.8 mg/dl (0.61-1.24)
[2016-08-01 11:11] LABS: CALCIUM 9.5 mg/dl (8.4-10.2)
--- NOTE | 2016-08-01 11:41 | PN ---
Date/Time of Note Date/Time of Note DATE: 08/01/16 TIME: 11:41 Assessment/Plan Lines/Catheters IV Catheter Type (from Nrsg): Central Line Jonas in Place (from Nrsg): No Assessment/Plan Chief Complaint/Hosp Course IMPRESSION: Right chest tube site bleeding, which has now subsided completely. Hgb stable Would monitor the hemoglobin levels and stop the antiplatelet. plan for VATS on Thursday OR time is available this week Problems: Subjective 24 Hr Interval Summary Constitutional: improved Pain Control: mild Exam/Review of Systems Vital Signs Vitals Vital Signs Date Time Temp Pulse Resp B/P Pulse Ox O2 Delivery O2 Flow Rate FiO2 08/01/16 08:25 69 08/01/16 07:51 98.2 18 100/53 97 Intake and Output 07/31/16 07/31/16 08/01/16 15:00 23:00 07:00 Intake Total 300 ml Balance 300 ml Exam ENMT: mucosa pink and moist, nl external ears & nose, nl lips & teeth, nl nasal mucosa & septum Neck: non-tender, supple Respiratory: clear to auscultation, normal air movement Cardiovascular: nl pulses, regular rate and rhythm Gastrointestinal: nl liver, spleen, non-tender, soft Results Result Diagram: 08/01/16 1025 08/01/16 1025 LILIA FELIZ MD Aug 01, 2016 11:41
--- NOTE | 2016-08-01 12:15 | CONS ---
DATE OF ADMISSION: 07/24/2016 DATE OF CONSULTATION: CLINICAL IMPRESSION: At this time the patient is not having any nausea or vomiting. I was consulte d because of nausea and vomiting a few days ago and at this time the patient has no more vomiting. The patient has a right pleural effusion. CAT scan of the abdomen was done 2 days ago, which showed evidence of a right pleural effusion and p robable hemothorax. Please read the report. There is evidence of mild thickening of the colon, whi ch needs to be further evaluated. Amylase is normal at 1359 and lipase is normal at 116. The WBC count is 9,500, hemoglobin 10.7. CLINICAL IMPRESSION: 1. Stable nausea and vomiting at this time. 2. Right pleural effusion. The patient is planned to have a surgical procedure for the right pleur al effusion. PLAN: Will continue to follow the patient as needed. Dictated By: CLAUDIO MUNIZ MD NC/NTS Conf#: [id number] DID#: [id number] CC: EVA COX MD;*EndCC*
[2016-08-01] MEDS: ONDANSETRON 4 MG INJ IV PRN ×2 (12:26→18:48)
[2016-08-01] MEDS ORDERED: NACL 3% FOR INHALATION 15 ML NEBU NEB ONE (13:00)
--- NOTE | 2016-08-01 13:01 | CONS ---
Date/Time of Note Date/Time of Note DATE: 08/01/16 TIME: 13:01 Assessment/Plan Assessment/Plan Chief Complaint/Hosp Course assessment/impression - possible tubercular empyema: R sided complex loculated air containing empyemas , visceral and parietal pleural calcifications. - a 35 mm lesion with possible cavitation in the anterior inferior RUL, possible recurrent tuberculosis - high risk for TB: history (originally from [facility], spends one month of each year in [facility], last in 09/2015), medical history (DM, ESRD), laboratory findings (positive quantiferon TB gold, granulomatous inflammation with focal necrosis on Bx of pleura) - AFB smear was negative x3, also M. tuberculosis DNA probe to the 1st sputum sample was undetectable in early 07/2016 - s/p R VATS, total pulmonary decortication, R pleurodesis on 06/30/2016. Biopsy was negative for fungal stain and AFB stain (micro lab and pathology department), as well as malignancy. It showed granulomatous inflammation with focal necrosis and extensive hyalinization. Chest tube was removed - h/o recurrent pleural effusion requiring thoracentesis approximately once a year, last performed in 04/2016 prior to this admission - positive quantiferon TB gold status of unknown duration. Per Pt, his past PPD was done in 2013, and was negative. - Our infection deputy controller Lindsey contacted the TB control unit at [facility]: we learned on 07/11/2016 that Pt has h/o mycobacterial tuberculosis infection in 1997 and was treated between 1997 and 1998. - DM - ESRD on HD - CAD s/p CABG in 2010 and cardiac stent in 2013 - HIV screen negative in 07/2016 tested at [facility] - nausea, Pt has been taking TB meds according to his RN recommendations - repeat AFB smear and culture x2 more, added MTB DNA probe to the 1st sample ( Yuriy at micro lab) - ordered RT to induce sputum for the 2nd and 3rd samples of AFB. discussed with RT Sandrita and RN Ivan. Orders on Entefy. Pt agreed. - continue renally dosed RIPE plus vitamin B6 supplement (07/12/2016-) - check LFTs' weekly management d/w Pt, his RN, charge nurse and RT the total time I took to care for this Pt today was from 1215 to 1300 Problems: Consultation Date/Type/Reason Admit Date/Time Jul 24, 2016 at 12:53 Initial Consult Date 07/25/16 Type of Consultation: ID Referring Provider: EVA COX MD 24 HR Interval Summary Constitutional: no complaints Detailed Summary Eyes: no complaints ENT: no complaints Respiratory: cough, No pain, No pleuritic pain, No shortness of breath, No sputum Cardiovascular: no complaints Gastrointestinal: nausea Genitourinary: other (HD) Musculoskeletal: no complaints Skin: no complaints Neurologic: no complaints Exam/Review of Systems Vital Signs Vitals Vital Signs Date Time Temp Pulse Resp B/P Pulse Ox O2 Delivery O2 Flow Rate FiO2 08/01/16 12:05 98.2 70 18 112/59 100 Intake and Output 07/31/16 07/31/16 08/01/16 15:00 23:00 07:00 Intake Total 300 ml Balance 300 ml Exam Constitutional: alert, frail Psych: nl mood/affect, no complaints Head: atraumatic, normocephalic Eyes: nl conjunctiva, nl lids ENMT: nl external ears & nose, nl nasal mucosa & septum Neck: supple Respiratory: diminished breath sounds Cardiovascular: nl pulses, regular rate and rhythm Gastrointestinal: non-tender, soft Musculoskeletal: nl extremities to inspection Extremities: No edema Neurological: 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 II-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 intact, nl mental status, nl speech Skin: nl turgor Results Result Diagram: 08/01/16 1025 08/01/16 1025 Results 24 hrs Laboratory Tests Test 07/31/16 17:39 07/31/16 20:57 08/01/16 04:23 08/01/16 08:29 Bedside Glucose 132 165 147 143 Test 08/01/16 10:25 08/01/16 12:16 White Blood Count 9.5 Red Blood Count 3.45 L Hemoglobin 10.7 L Hematocrit 32.7 L Mean Corpuscular Volume 94.8 Mean Corpuscular Hemoglobin 31.0 Mean Corpuscular Hemoglobin Concent 32.7 Red Cell Distribution Width 15.7 H Platelet Count 234 Mean Platelet Volume 10.0 Neutrophils % 77.7 H Lymphocytes % 8.3 L Monocytes % 12.1 H Eosinophils % 0.7 Basophils % 0.7 Nucleated Red Blood Cells % 0.0 Neutrophils # 7.4 Lymphocytes # 0.8 Monocytes # 1.2 H Eosinophils # 0.1 Basophils # 0.1 Nucleated Red Blood Cells # 0.0 Sodium Level 136 Potassium Level 5.7 H Chloride Level 100 Carbon Dioxide Level 22 Anion Gap 20 H Blood Urea Nitrogen 109 H Creatinine 9.80 H Glucose Level 147 Calcium Level 9.5 Bedside Glucose 137 Medications Medications Current Medications Aspirin (Halfprin) 81 mg DAILY PO Last administered on 07/26/16 08:39; Admin Dose 81 MG; Start 07/25/16 at 09:00; Status Future Hold Atorvastatin Calcium (Lipitor) 10 mg QHS PO Last administered on 07/31/16 21: 07; Admin Dose 10 MG; Start 07/24/16 at 21:00 Benazepril HCl (Lotensin) 40 mg BID PO Last administered on 07/31/16 21:06; Admin Dose 40 MG; Start 07/24/16 at 21:00 Cholecalciferol (Vitamin D) 400 units DAILY PO Last administered on 07/31/16 08:24; Admin Dose 400 UNITS; Start 07/25/16 at 09:00 Famotidine (Pepcid) 20 mg DAILY PO Last administered on 07/31/16 08:25; Admin Dose 20 MG; Start 07/25/16 at 09:00 Ferrous Sulfate (Ferrous Sulfate (Ec)) 325 mg BID PO Last administered on 21:06; Admin Dose 325 MG; Start 07/24/16 at 21:00 Acetaminophen/ Hydrocodone Bitart ([place] (5/325)) 1 tab Q4H PRN PO PAIN; Start 07/24/16 at 17:00 Insulin Glargine (Lantus) 6 unit DAILY@20 SC Last administered on 07/30/16 20: 47; Admin Dose 6 UNIT; Start 07/24/16 at 20:00 Isoniazid (Isoniazid) 300 mg DAILY PO Last administered on 08/01/16 08:32; Admin Dose 300 MG; Start 07/24/16 at 15:30 Nifedipine (Procardia Xl) 60 mg BID PO Last administered on 07/31/16 21:06; Admin Dose 60 MG; Start 07/24/16 at 21:00 Pyridoxine HCl (Vitamin B6) 50 mg DAILY PO Last administered on 07/31/16 08:25 ; Admin Dose 50 MG; Start 07/25/16 at 09:00 Rifampin (Rifampin) 600 mg DAILY PO Last administered on 08/01/16 08:32; Admin Dose 600 MG; Start 07/25/16 at 09:00 Miscellaneous Information 1 ea NOTE XX ; Start 07/24/16 at 16:00 Glucose (Glutose) 15 gm Q15M PRN PO DECREASED GLUCOSE; Start 07/24/16 at 16:00 Glucose (Glutose) 22.5 gm Q15M PRN PO DECREASED GLUCOSE; Start 07/24/16 at 16: 00 Dextrose (D50w Syringe) 25 ml Q15M PRN IV DECREASED GLUCOSE; Start 07/24/16 at 16:00 Dextrose (D50w Syringe) 50 ml Q15M PRN IV DECREASED GLUCOSE; Start 07/24/16 at 16:00 Glucagon (Glucagen) 1 mg Q15M PRN IM DECREASED GLUCOSE; Start 07/24/16 at 16:00 Glucose (Glutose) 15 gm Q15M PRN BUCCAL DECREASED GLUCOSE; Start 07/24/16 at 16 :00 Ondansetron HCl (Zofran Inj) 4 mg Q4 PRN IV nausea Last administered on 12:26; Admin Dose 4 MG; Start 07/24/16 at 17:00 Hydromorphone HCl (Dilaudid) 1 mg Q4 PRN IV pain Last administered on 04:18; Admin Dose 1 MG; Start 07/24/16 at 17:00 Metoclopramide HCl (Reglan) 5 mg Q4H PRN IV NAUSEA Last administered on 10:05; Admin Dose 5 MG; Start 07/24/16 at 22:30 Diagnostic Test (Pha) (Accu-Chek) 1 ea 02 XX Last administered on 07/28/16 02: 54; Admin Dose 1 EA; Start 07/26/16 at 12:00 Metoprolol Tartrate (Lopressor) 100 mg BID GTB Last administered on 07/31/16 21:05; Admin Dose 100 MG; Start 07/26/16 at 13:30 Clonidine HCl (Catapres-Tts 2 Patch) 1 patch Q7D TRANSDERM Last administered on 07/27/16 08:27; Admin Dose 1 PATCH; Start 07/27/16 at 07:00 Pantoprazole (Protonix Tab) 40 mg DAILY@06 PO Last administered on 3/31/17at 06 :36; Admin Dose 40 MG; Start 07/28/16 at 06:00 Hydralazine HCl (Apresoline) 20 mg Q4 PRN IV ELEVATED BLOOD PRESSURE Last administered on 07/30/16 02:15; Admin Dose 20 MG; Start 07/28/16 at 02:00 Doxazosin Mesylate (Cardura) 2 mg HS PO Last administered on 07/31/16 21:06; Admin Dose 2 MG; Start 07/28/16 at 21:00 Polyethylene Glycol (Miralax) 17 gm DAILY PRN GTB CONSTIPATION Last administered on 07/28/16 20:22; Admin Dose 17 GM; Start 07/28/16 at 19:30 Lorazepam (Ativan) 1 mg Q4H PRN IV anxiety Last administered on 07/30/16 20:48 ; Admin Dose 1 MG; Start 07/29/16 at 06:30 Ethambutol HCl (Myambutol) 900 mg TuThSa@20 PO Last administered on 07/31/16 21:07; Admin Dose 900 MG; Start 07/31/16 at 20:00 Pyrazinamide (Pyrazinamide) 1,250 mg TuThSa@20 PO ; Start 07/31/16 at 20:00 Sodium Chloride (Nacl 3% For Inhalation) 5 ml ONCE ONCE NEB ; Start 08/01/16 at 13:00; Stop 08/01/16 at 13:01 Sodium Chloride (Nacl 3% For Inhalation) 5 ml ONCE ONCE NEB ; Start 08/02/16 at 06:00; Stop 08/02/16 at 06:01 YUMIKO NICHOLSON M.D. Aug 01, 2016 13:01
--- NOTE | 2016-08-01 13:32 | PN ---
Date/Time of Note Date/Time of Note DATE: 08/01/16 TIME: 13:26 Assessment/Plan VTE Prophylaxis VTE Prophylaxis Intervention: SCD's Lines/Catheters IV Catheter Type (from [facility]): Central Line Central line still needed: Yes Urinary Cath still in place: No Assessment/Plan Chief Complaint/Hosp Course Assessment and plan: - Recurrent right pleural effusion consistent with empyema, cavitary lesions, plan for VATS on Thursday upon OR availability. Plavix is on hold. -Hemoptysis, resolved. Dr. Dale is following in pulmonology consultation. Dr. Caitlin balderas is following an infection disease consultation. -Right former chest tube site bleeding, resolved. Dr. Martinez is following in thoracic surgery consultation. -Anemia of acute blood loss, patient had bleeding from the right femoral catheter as well as chest tube site on admission, status post blood transfusion , continue to monitor hemoglobin and hematocrit. Dr. Martinez is following in hematology consultation. 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 - End-stage renal disease, continue hemodialysis. Dr. Saunders is following in nephrology consultation. - Diabetes mellitus type 2, continue Lantus, pre-meal NovoLog and NovoLog per mild algorithm sliding scale. - Hypertension. Dr. De Santiago is following and cardiology consultation. Continue benazepril metoprolol hydralazine Procardia - Coronary artery disease, status post coronary artery bypass graft, s/p percutaneous transluminal coronary angioplasty and stent placement to left main and left anterior descending in 2014. - Permanent pacemaker. No acute issues. - Dyslipidemia. Continue Lipitor. Further recommendations based on clinical course. Plan of care discussed with Dr. Price. Problems: Subjective 24 Hr Interval Summary Free Text/Dictation Patient complains of nausea, no vomiting, upset re postponing surgery, comfortable at rest. Exam/Review of Systems Vital Signs Vitals Vital Signs Date Time Temp Pulse Resp B/P Pulse Ox O2 Delivery O2 Flow Rate FiO2 08/01/16 12:05 98.2 70 18 112/59 100 Intake and Output 07/31/16 07/31/16 08/01/16 15:00 23:00 07:00 Intake Total 300 ml Balance 300 ml Exam Constitutional: alert, oriented Psych: no complaints Head: atraumatic, normocephalic ENMT: nl external ears & nose Neck: non-tender, supple Respiratory: clear to auscultation, normal air movement Cardiovascular: other (Left chest permanent pacemaker), regular rate and rhythm Gastrointestinal: bowel sounds, soft Extremities: normal pulses Neurological: 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 intact Results Result Diagram: 08/01/16 1025 08/01/16 1025 Results 24 hrs Laboratory Tests Test 07/31/16 17:39 07/31/16 20:57 08/01/16 04:23 08/01/16 08:29 Bedside Glucose 132 165 147 143 Test 08/01/16 10:25 08/01/16 12:16 White Blood Count 9.5 Red Blood Count 3.45 L Hemoglobin 10.7 L Hematocrit 32.7 L Mean Corpuscular Volume 94.8 Mean Corpuscular Hemoglobin 31.0 Mean Corpuscular Hemoglobin Concent 32.7 Red Cell Distribution Width 15.7 H Platelet Count 234 Mean Platelet Volume 10.0 Neutrophils % 77.7 H Lymphocytes % 8.3 L Monocytes % 12.1 H Eosinophils % 0.7 Basophils % 0.7 Nucleated Red Blood Cells % 0.0 Neutrophils # 7.4 Lymphocytes # 0.8 Monocytes # 1.2 H Eosinophils # 0.1 Basophils # 0.1 Nucleated Red Blood Cells # 0.0 Sodium Level 136 Potassium Level 5.7 H Chloride Level 100 Carbon Dioxide Level 22 Anion Gap 20 H Blood Urea Nitrogen 109 H Creatinine 9.80 H Glucose Level 147 Calcium Level 9.5 Bedside Glucose 137 Medications Medications Current Medications Aspirin (Halfprin) 81 mg DAILY PO Last administered on 07/26/16 08:39; Admin Dose 81 MG; Start 07/25/16 at 09:00; Status Future Hold Atorvastatin Calcium (Lipitor) 10 mg QHS PO Last administered on 07/31/16 21: 07; Admin Dose 10 MG; Start 07/24/16 at 21:00 Benazepril HCl (Lotensin) 40 mg BID PO Last administered on 08/01/16 13:07; Admin Dose 40 MG; Start 07/24/16 at 21:00 Cholecalciferol (Vitamin D) 400 units DAILY PO Last administered on 08/01/16 13:05; Admin Dose 400 UNITS; Start 07/25/16 at 09:00 Famotidine (Pepcid) 20 mg DAILY PO Last administered on 08/01/16 13:06; Admin Dose 20 MG; Start 07/25/16 at 09:00 Ferrous Sulfate (Ferrous Sulfate (Ec)) 325 mg BID PO Last administered on 13:04; Admin Dose 325 MG; Start 07/24/16 at 21:00 Acetaminophen/ Hydrocodone Bitart ([place] (5/325)) 1 tab Q4H PRN PO PAIN; Start 07/24/16 at 17:00 Insulin Glargine (Lantus) 6 unit DAILY@20 SC Last administered on 07/30/16 20: 47; Admin Dose 6 UNIT; Start 07/24/16 at 20:00 Isoniazid (Isoniazid) 300 mg DAILY PO Last administered on 08/01/16 08:32; Admin Dose 300 MG; Start 07/24/16 at 15:30 Nifedipine (Procardia Xl) 60 mg BID PO Last administered on 08/01/16 13:06; Admin Dose 60 MG; Start 07/24/16 at 21:00 Pyridoxine HCl (Vitamin B6) 50 mg DAILY PO Last administered on 08/01/16 13:05 ; Admin Dose 50 MG; Start 07/25/16 at 09:00 Rifampin (Rifampin) 600 mg DAILY PO Last administered on 08/01/16 08:32; Admin Dose 600 MG; Start 07/25/16 at 09:00 Miscellaneous Information 1 ea NOTE XX ; Start 07/24/16 at 16:00 Glucose (Glutose) 15 gm Q15M PRN PO DECREASED GLUCOSE; Start 07/24/16 at 16:00 Glucose (Glutose) 22.5 gm Q15M PRN PO DECREASED GLUCOSE; Start 07/24/16 at 16: 00 Dextrose (D50w Syringe) 25 ml Q15M PRN IV DECREASED GLUCOSE; Start 07/24/16 at 16:00 Dextrose (D50w Syringe) 50 ml Q15M PRN IV DECREASED GLUCOSE; Start 07/24/16 at 16:00 Glucagon (Glucagen) 1 mg Q15M PRN IM DECREASED GLUCOSE; Start 07/24/16 at 16:00 Glucose (Glutose) 15 gm Q15M PRN BUCCAL DECREASED GLUCOSE; Start 07/24/16 at 16 :00 Ondansetron HCl (Zofran Inj) 4 mg Q4 PRN IV nausea Last administered on 12:26; Admin Dose 4 MG; Start 07/24/16 at 17:00 Hydromorphone HCl (Dilaudid) 1 mg Q4 PRN IV pain Last administered on 04:18; Admin Dose 1 MG; Start 07/24/16 at 17:00 Metoclopramide HCl (Reglan) 5 mg Q4H PRN IV NAUSEA Last administered on 10:05; Admin Dose 5 MG; Start 07/24/16 at 22:30 Diagnostic Test (Pha) (Accu-Chek) 1 ea 02 XX Last administered on 07/28/16 02: 54; Admin Dose 1 EA; Start 07/26/16 at 12:00 Metoprolol Tartrate (Lopressor) 100 mg BID GTB Last administered on 08/01/16 13:03; Admin Dose 100 MG; Start 07/26/16 at 13:30 Clonidine HCl (Catapres-Tts 2 Patch) 1 patch Q7D TRANSDERM Last administered on 07/27/16 08:27; Admin Dose 1 PATCH; Start 07/27/16 at 07:00 Pantoprazole (Protonix Tab) 40 mg DAILY@06 PO Last administered on 08/01/16 06 :36; Admin Dose 40 MG; Start 07/28/16 at 06:00 Hydralazine HCl (Apresoline) 20 mg Q4 PRN IV ELEVATED BLOOD PRESSURE Last administered on 07/30/16 02:15; Admin Dose 20 MG; Start 07/28/16 at 02:00 Doxazosin Mesylate (Cardura) 2 mg HS PO Last administered on 07/31/16 21:06; Admin Dose 2 MG; Start 07/28/16 at 21:00 Polyethylene Glycol (Miralax) 17 gm DAILY PRN GTB CONSTIPATION Last administered on 07/28/16 20:22; Admin Dose 17 GM; Start 07/28/16 at 19:30 Lorazepam (Ativan) 1 mg Q4H PRN IV anxiety Last administered on 07/30/16 20:48 ; Admin Dose 1 MG; Start 07/29/16 at 06:30 Ethambutol HCl (Myambutol) 900 mg TuThSa@20 PO Last administered on 3/30/17at 21:07; Admin Dose 900 MG; Start 07/31/16 at 20:00 Pyrazinamide (Pyrazinamide) 1,250 mg TuThSa@20 PO ; Start 07/31/16 at 20:00 Sodium Chloride (Nacl 3% For Inhalation) 5 ml ONCE ONCE NEB ; Start 08/02/16 at 06:00; Stop 08/02/16 at 06:01 CECILIA DAMICO Aug 01, 2016 13:32
[2016-08-01] MEDS ORDERED: NA POLYST SULFON 15 GM/60 ML BTL PO ONE (15:00)
[2016-08-01] MEDS: METOCLOPRAMIDE 10 MG INJ IV PRN (15:11)
--- NOTE | 2016-08-01 15:52 | CONS ---
Date/Time of Note Date/Time of Note DATE: 08/01/16 TIME: 15:49 Assessment/Plan Assessment/Plan Chief Complaint/Hosp Course 1. Acute kidney injury, pt is oh HD 2. Lung infiltrate./cavitary lesion 3. chronic lung disease. 4. Hypertension. 5. Diabetes mellitus. 6. 7. anemia. 8. cad. 9. Leukocytosis.better 10. ashd 11. s/p vats. 12. The patient on anti-tuberculosis treatment. Problems: Additional Assessment/Plan 1. Stop [place] , let HD regulate K Consultation Date/Type/Reason Admit Date/Time Jul 24, 2016 at 12:53 Initial Consult Date 07/25/16 Type of Consultation: nephrology Reason for Consultation Dr Saunders Referring Provider: EVA COX MD 24 HR Interval Summary Constitutional: other (crancky) Exam/Review of Systems Vital Signs Vitals Vital Signs Date Time Temp Pulse Resp B/P Pulse Ox O2 Delivery O2 Flow Rate FiO2 08/01/16 14:36 69 18 99 21 08/01/16 12:05 98.2 112/59 Intake and Output 07/31/16 07/31/16 08/01/16 15:00 23:00 07:00 Intake Total 300 ml Balance 300 ml Results Result Diagram: 08/01/16 1025 08/01/16 1025 Results 24 hrs Laboratory Tests Test 07/31/16 17:39 07/31/16 20:57 08/01/16 04:23 08/01/16 08:29 Bedside Glucose 132 165 147 143 Test 08/01/16 10:25 08/01/16 12:16 White Blood Count 9.5 Red Blood Count 3.45 L Hemoglobin 10.7 L Hematocrit 32.7 L Mean Corpuscular Volume 94.8 Mean Corpuscular Hemoglobin 31.0 Mean Corpuscular Hemoglobin Concent 32.7 Red Cell Distribution Width 15.7 H Platelet Count 234 Mean Platelet Volume 10.0 Neutrophils % 77.7 H Lymphocytes % 8.3 L Monocytes % 12.1 H Eosinophils % 0.7 Basophils % 0.7 Nucleated Red Blood Cells % 0.0 Neutrophils # 7.4 Lymphocytes # 0.8 Monocytes # 1.2 H Eosinophils # 0.1 Basophils # 0.1 Nucleated Red Blood Cells # 0.0 Sodium Level 136 Potassium Level 5.7 H Chloride Level 100 Carbon Dioxide Level 22 Anion Gap 20 H Blood Urea Nitrogen 109 H Creatinine 9.80 H Glucose Level 147 Calcium Level 9.5 Bedside Glucose 137 Medications Medications Current Medications Aspirin (Halfprin) 81 mg DAILY PO Last administered on 07/26/16 08:39; Admin Dose 81 MG; Start 07/25/16 at 09:00; Status Future Hold Atorvastatin Calcium (Lipitor) 10 mg QHS PO Last administered on 07/31/16 21: 07; Admin Dose 10 MG; Start 07/24/16 at 21:00 Benazepril HCl (Lotensin) 40 mg BID PO Last administered on 08/01/16 13:07; Admin Dose 40 MG; Start 07/24/16 at 21:00 Cholecalciferol (Vitamin D) 400 units DAILY PO Last administered on 08/01/16 13:05; Admin Dose 400 UNITS; Start 07/25/16 at 09:00 Famotidine (Pepcid) 20 mg DAILY PO Last administered on 08/01/16 13:06; Admin Dose 20 MG; Start 07/25/16 at 09:00 Ferrous Sulfate (Ferrous Sulfate (Ec)) 325 mg BID PO Last administered on 13:04; Admin Dose 325 MG; Start 07/24/16 at 21:00 Acetaminophen/ Hydrocodone Bitart ([place] (5/325)) 1 tab Q4H PRN PO PAIN; Start 07/24/16 at 17:00 Insulin Glargine (Lantus) 6 unit DAILY@20 SC Last administered on 07/30/16 20: 47; Admin Dose 6 UNIT; Start 07/24/16 at 20:00 Isoniazid (Isoniazid) 300 mg DAILY PO Last administered on 08/01/16 08:32; Admin Dose 300 MG; Start 07/24/16 at 15:30 Nifedipine (Procardia Xl) 60 mg BID PO Last administered on 08/01/16 13:06; Admin Dose 60 MG; Start 07/24/16 at 21:00 Pyridoxine HCl (Vitamin B6) 50 mg DAILY PO Last administered on 08/01/16 13:05 ; Admin Dose 50 MG; Start 07/25/16 at 09:00 Rifampin (Rifampin) 600 mg DAILY PO Last administered on 08/01/16 08:32; Admin Dose 600 MG; Start 07/25/16 at 09:00 Miscellaneous Information 1 ea NOTE XX ; Start 07/24/16 at 16:00 Glucose (Glutose) 15 gm Q15M PRN PO DECREASED GLUCOSE; Start 07/24/16 at 16:00 Glucose (Glutose) 22.5 gm Q15M PRN PO DECREASED GLUCOSE; Start 07/24/16 at 16: 00 Dextrose (D50w Syringe) 25 ml Q15M PRN IV DECREASED GLUCOSE; Start 07/24/16 at 16:00 Dextrose (D50w Syringe) 50 ml Q15M PRN IV DECREASED GLUCOSE; Start 07/24/16 at 16:00 Glucagon (Glucagen) 1 mg Q15M PRN IM DECREASED GLUCOSE; Start 07/24/16 at 16:00 Glucose (Glutose) 15 gm Q15M PRN BUCCAL DECREASED GLUCOSE; Start 07/24/16 at 16 :00 Ondansetron HCl (Zofran Inj) 4 mg Q4 PRN IV nausea Last administered on 12:26; Admin Dose 4 MG; Start 07/24/16 at 17:00 Hydromorphone HCl (Dilaudid) 1 mg Q4 PRN IV pain Last administered on 04:18; Admin Dose 1 MG; Start 07/24/16 at 17:00 Metoclopramide HCl (Reglan) 5 mg Q4H PRN IV NAUSEA Last administered on 15:11; Admin Dose 5 MG; Start 07/24/16 at 22:30 Diagnostic Test (Pha) (Accu-Chek) 1 ea 02 XX Last administered on 07/28/16 02: 54; Admin Dose 1 EA; Start 07/26/16 at 12:00 Metoprolol Tartrate (Lopressor) 100 mg BID GTB Last administered on 08/01/16 13:03; Admin Dose 100 MG; Start 07/26/16 at 13:30 Clonidine HCl (Catapres-Tts 2 Patch) 1 patch Q7D TRANSDERM Last administered on 07/27/16 08:27; Admin Dose 1 PATCH; Start 07/27/16 at 07:00 Pantoprazole (Protonix Tab) 40 mg DAILY@06 PO Last administered on 08/01/16 06 :36; Admin Dose 40 MG; Start 3/27/17 at 06:00 Hydralazine HCl (Apresoline) 20 mg Q4 PRN IV ELEVATED BLOOD PRESSURE Last administered on 07/30/16 02:15; Admin Dose 20 MG; Start 07/28/16 at 02:00 Doxazosin Mesylate (Cardura) 2 mg HS PO Last administered on 07/31/16 21:06; Admin Dose 2 MG; Start 07/28/16 at 21:00 Polyethylene Glycol (Miralax) 17 gm DAILY PRN GTB CONSTIPATION Last administered on 07/28/16 20:22; Admin Dose 17 GM; Start 07/28/16 at 19:30 Lorazepam (Ativan) 1 mg Q4H PRN IV anxiety Last administered on 07/30/16 20:48 ; Admin Dose 1 MG; Start 07/29/16 at 06:30 Ethambutol HCl (Myambutol) 900 mg TuThSa@20 PO Last administered on 07/31/16 21:07; Admin Dose 900 MG; Start 07/31/16 at 20:00 Pyrazinamide (Pyrazinamide) 1,250 mg TuThSa@20 PO ; Start 07/31/16 at 20:00 Sodium Chloride (Nacl 3% For Inhalation) 5 ml ONCE ONCE NEB ; Start 08/02/16 at 06:00; Stop 08/02/16 at 06:01 TERRIE YOST Aug 01, 2016 15:52
--- NOTE | 2016-08-01 18:41 | CONS ---
Date/Time of Note Date/Time of Note DATE: 08/01/16 TIME: 18:39 Assessment/Plan Assessment/Plan Chief Complaint/Hosp Course IMPRESSION: 1. Abnormal electrocardiogram, assess for acute coronary syndrome with no current chest pain and recently negative stress test.-negative troponin x 3 2. History of a percutaneous transluminal coronary angioplasty and stent placement to left main and left anterior descending in 2014. 3. History of coronary artery bypass graft surgery. 4. Video assisted thoracoscopic surgery pleurodesis with leakage from the chest tube site. 5. Shortness of breath. 6. End-stage renal disease on hemodialysis. 7. Tuberculosis, on therapy. 8. Hypertension-currently well controled 9. Diabetes mellitus. 10. Dyslipidemia. 11. Anemia-worsening s/p transfusion 12.Empyema/cavitary lesions by CT Recc: -Tele -Continue benazepril/BB/CCB/cardura and follow BP closely -Plavix/asa held in the setting of anemia/resume when possible-safe after repeat VATS procedure -HD for volume removal -Pnding repeat VATS/pleurodesis -Back on droplet precautions -continue TB treatment Problems: Consultation Date/Type/Reason Admit Date/Time Jul 24, 2016 at 12:53 Initial Consult Date 07/24/16 Type of Consultation: Cardiology Reason for Consultation HTN Referring Provider: EVA COX MD Exam/Review of Systems Vital Signs Vitals Vital Signs Date Time Temp Pulse Resp B/P Pulse Ox O2 Delivery O2 Flow Rate FiO2 08/01/16 17:30 72 08/01/16 17:30 18 08/01/16 14:36 99 21 08/01/16 12:05 98.2 112/59 Intake and Output 07/31/16 07/31/16 08/01/16 15:00 23:00 07:00 Intake Total 300 ml Balance 300 ml Exam Review of Systems: CONSTITUTIONAL: No fevers, chills. PULMONARY: No sob CARDIOVASCULAR: No chest pain/palpitations GASTROINTESTINAL: No nausea/vomiting. GENITOURINARY: No hematuria/dysuria. MUSCULOSKELETAL: No myagias/arthalgias. PSYCHIATRIC: The patient denies depression. NEUROLOGIC: No weakness Constitutional: alert Psych: no complaints Head: normocephalic ENMT: mucosa pink and moist Neck: jvd (8 cm water), supple Respiratory: diminished breath sounds (at bases/B) Cardiovascular: regular rate and rhythm Gastrointestinal: non-tender, soft Musculoskeletal: muscle tone (normal) Extremities: edema (none) Neurological: other (No focal deficits) Results Result Diagram: 08/01/16 1025 08/01/16 1025 Results 24 hrs Laboratory Tests Test 07/31/16 20:57 08/01/16 04:23 08/01/16 08:29 08/01/16 10:25 Bedside Glucose 165 147 143 White Blood Count 9.5 Red Blood Count 3.45 L Hemoglobin 10.7 L Hematocrit 32.7 L Mean Corpuscular Volume 94.8 Mean Corpuscular Hemoglobin 31.0 Mean Corpuscular Hemoglobin Concent 32.7 Red Cell Distribution Width 15.7 H Platelet Count 234 Mean Platelet Volume 10.0 Neutrophils % 77.7 H Lymphocytes % 8.3 L Monocytes % 12.1 H Eosinophils % 0.7 Basophils % 0.7 Nucleated Red Blood Cells % 0.0 Neutrophils # 7.4 Lymphocytes # 0.8 Monocytes # 1.2 H Eosinophils # 0.1 Basophils # 0.1 Nucleated Red Blood Cells # 0.0 Sodium Level 136 Potassium Level 5.7 H Chloride Level 100 Carbon Dioxide Level 22 Anion Gap 20 H Blood Urea Nitrogen 109 H Creatinine 9.80 H Glucose Level 147 Calcium Level 9.5 Test 08/01/16 12:16 08/01/16 17:10 Bedside Glucose 137 158 Medications Medications Current Medications Aspirin (Halfprin) 81 mg DAILY PO Last administered on 07/26/16 08:39; Admin Dose 81 MG; Start 07/25/16 at 09:00; Status Future Hold Atorvastatin Calcium (Lipitor) 10 mg QHS PO Last administered on 07/31/16 21: 07; Admin Dose 10 MG; Start 07/24/16 at 21:00 Benazepril HCl (Lotensin) 40 mg BID PO Last administered on 08/01/16 13:07; Admin Dose 40 MG; Start 07/24/16 at 21:00 Cholecalciferol (Vitamin D) 400 units DAILY PO Last administered on 08/01/16 13:05; Admin Dose 400 UNITS; Start 07/25/16 at 09:00 Famotidine (Pepcid) 20 mg DAILY PO Last administered on 08/01/16 13:06; Admin Dose 20 MG; Start 07/25/16 at 09:00 Ferrous Sulfate (Ferrous Sulfate (Ec)) 325 mg BID PO Last administered on 13:04; Admin Dose 325 MG; Start 07/24/16 at 21:00 Acetaminophen/ Hydrocodone Bitart ([place] (5/325)) 1 tab Q4H PRN PO PAIN; Start 07/24/16 at 17:00 Insulin Glargine (Lantus) 6 unit DAILY@20 SC Last administered on 07/30/16 20: 47; Admin Dose 6 UNIT; Start 07/24/16 at 20:00 Isoniazid (Isoniazid) 300 mg DAILY PO Last administered on 08/01/16 08:32; Admin Dose 300 MG; Start 07/24/16 at 15:30 Nifedipine (Procardia Xl) 60 mg BID PO Last administered on 08/01/16 13:06; Admin Dose 60 MG; Start 07/24/16 at 21:00 Pyridoxine HCl (Vitamin B6) 50 mg DAILY PO Last administered on 08/01/16 13:05 ; Admin Dose 50 MG; Start 07/25/16 at 09:00 Rifampin (Rifampin) 600 mg DAILY PO Last administered on 08/01/16 08:32; Admin Dose 600 MG; Start 07/25/16 at 09:00 Miscellaneous Information 1 ea NOTE XX ; Start 07/24/16 at 16:00 Glucose (Glutose) 15 gm Q15M PRN PO DECREASED GLUCOSE; Start 07/24/16 at 16:00 Glucose (Glutose) 22.5 gm Q15M PRN PO DECREASED GLUCOSE; Start 07/24/16 at 16: 00 Dextrose (D50w Syringe) 25 ml Q15M PRN IV DECREASED GLUCOSE; Start 07/24/16 at 16:00 Dextrose (D50w Syringe) 50 ml Q15M PRN IV DECREASED GLUCOSE; Start 07/24/16 at 16:00 Glucagon (Glucagen) 1 mg Q15M PRN IM DECREASED GLUCOSE; Start 07/24/16 at 16:00 Glucose (Glutose) 15 gm Q15M PRN BUCCAL DECREASED GLUCOSE; Start 07/24/16 at 16 :00 Ondansetron HCl (Zofran Inj) 4 mg Q4 PRN IV nausea Last administered on 12:26; Admin Dose 4 MG; Start 07/24/16 at 17:00 Hydromorphone HCl (Dilaudid) 1 mg Q4 PRN IV pain Last administered on 04:18; Admin Dose 1 MG; Start 07/24/16 at 17:00 Metoclopramide HCl (Reglan) 5 mg Q4H PRN IV NAUSEA Last administered on 15:11; Admin Dose 5 MG; Start 07/24/16 at 22:30 Diagnostic Test (Pha) (Accu-Chek) 1 ea 02 XX Last administered on 07/28/16 02: 54; Admin Dose 1 EA; Start 07/26/16 at 12:00 Metoprolol Tartrate (Lopressor) 100 mg BID GTB Last administered on 08/01/16 13:03; Admin Dose 100 MG; Start 07/26/16 at 13:30 Clonidine HCl (Catapres-Tts 2 Patch) 1 patch Q7D TRANSDERM Last administered on 07/27/16 08:27; Admin Dose 1 PATCH; Start 07/27/16 at 07:00 Pantoprazole (Protonix Tab) 40 mg DAILY@06 PO Last administered on 08/01/16 06 :36; Admin Dose 40 MG; Start 07/28/16 at 06:00 Hydralazine HCl (Apresoline) 20 mg Q4 PRN IV ELEVATED BLOOD PRESSURE Last administered on 07/30/16 02:15; Admin Dose 20 MG; Start 07/28/16 at 02:00 Doxazosin Mesylate (Cardura) 2 mg HS PO Last administered on 07/31/16 21:06; Admin Dose 2 MG; Start 07/28/16 at 21:00 Polyethylene Glycol (Miralax) 17 gm DAILY PRN GTB CONSTIPATION Last administered on 07/28/16 20:22; Admin Dose 17 GM; Start 07/28/16 at 19:30 Lorazepam (Ativan) 1 mg Q4H PRN IV anxiety Last administered on 07/30/16 20:48 ; Admin Dose 1 MG; Start 07/29/16 at 06:30 Ethambutol HCl (Myambutol) 900 mg TuThSa@20 PO Last administered on 07/31/16 21:07; Admin Dose 900 MG; Start 07/31/16 at 20:00 Pyrazinamide (Pyrazinamide) 1,250 mg TuThSa@20 PO ; Start 07/31/16 at 20:00 Sodium Chloride (Nacl 3% For Inhalation) 5 ml ONCE ONCE NEB ; Start 08/02/16 at 06:00; Stop 08/02/16 at 06:01 SHERITA SCOTT Aug 01, 2016 18:41
[2016-08-01] MEDS: INSULIN GLARGINE [LANtus] 3 ML PEN SC SCH (21:05)
[2016-08-01] MEDS: ATORVASTATIN 10 MG TAB PO SCH (21:08)
[2016-08-01] MEDS: DOXAZOSIN 2 MG TAB PO SCH (21:08)
[2016-08-02] VITALS (16 sets, daily range): BP systolic 7–166; BP diastolic 6–74; PULSE 8–73; RESP 16–18
[2016-08-02] MEDS: ACCUCHECK 2 AM XX SCH (02:00)
[2016-08-02] MEDS: ONDANSETRON 4 MG INJ IV PRN ×2 (02:05→17:51)
[2016-08-02] MEDS: HYDROmorphONE 1 MG/ML SYG IV PRN ×4 (02:06→18:50)
[2016-08-02] MEDS: PANTOPRAZOLE (EC) 40 MG TAB PO SCH (05:59)
[2016-08-02] MEDS ORDERED: NACL 3% FOR INHALATION 15 ML NEBU NEB ONE (06:00)
[2016-08-02] MEDS: NIFEdipine (XL) 60 MG TAB PO SCH ×2 (09:00→21:06)
[2016-08-02] MEDS: BENAZEPRIL 40 MG TAB PO SCH ×2 (09:00→21:06)
[2016-08-02] MEDS: METOPROLOL 100 MG TAB GTB SCH ×2 (09:00→21:06)
[2016-08-02] MEDS: SEVELAMER CARBONATE 0.8 GM PKT PO SCH ×3 (09:35→17:43)
[2016-08-02] MEDS: PYRIDOXINE 50 MG TAB PO SCH (09:35)
[2016-08-02] MEDS: CHOLECALCIFEROL 400 UNITS TAB PO SCH (09:35)
[2016-08-02] MEDS: CALCIUM ACETATE 667 MG CAP PO SCH ×3 (09:35→17:43)
[2016-08-02] MEDS: ISONIAZID 300 MG TAB PO SCH (09:35)
[2016-08-02] MEDS: RIFAMPIN 300 MG CAP PO SCH (09:36)
[2016-08-02] MEDS: FAMOTIDINE 20 MG TAB PO SCH (09:36)
[2016-08-02] MEDS: FERROUS SULFATE (EC) 325 MG TAB PO SCH ×2 (09:36→21:01)
[2016-08-02] MEDS: Insulin NOVOLOG SS MILD Algorithm (SS with meals and bedtime) SC SCH ×4 (09:37→21:00)
[2016-08-02] MEDS: INSULIN ASPART [NOVOLOG] 3 ML PEN SC SCH ×2 (09:54→13:08)
[2016-08-02 10:38] LABS: POTASSIUM 4.5 mmol/L (3.5-5.1)
[2016-08-02 10:40] LABS: CREATININE 6.54 mg/dl (0.61-1.24)
[2016-08-02] MEDS: METOCLOPRAMIDE 10 MG INJ IV PRN (10:46)
--- NOTE | 2016-08-02 13:09 | PN ---
Date/Time of Note Date/Time of Note DATE: 08/02/16 TIME: 13:08 Assessment/Plan VTE Prophylaxis VTE Prophylaxis Intervention: other Lines/Catheters IV Catheter Type (from [facility]): Central Line Central line still needed: Yes Urinary Cath still in place: No Assessment/Plan Chief Complaint/Hosp Course - Recurrent right pleural effusion consistent with empyema, cavitary lesions, plan for VATS on Thursday upon OR availability. Plavix is on hold. - Hemoptysis, resolved. Dr. Dale is following in pulmonology consultation. Dr. Caitlin balderas is following an infection disease consultation. - Right former chest tube site bleeding, resolved. Dr. Martinez is following in thoracic surgery consultation. - Anemia of acute blood loss, patient had bleeding from the right femoral catheter as well as chest tube site on admission, status post blood transfusion , continue to monitor hemoglobin and hematocrit. Dr. Martinez is following in hematology consultation. 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 - End-stage renal disease, continue hemodialysis. Dr. Saunders is following in nephrology consultation. - Diabetes mellitus type 2, continue Lantus, pre-meal NovoLog and NovoLog per mild algorithm sliding scale. - Hypertension. Dr. De Santiago is following and cardiology consultation. Continue benazepril metoprolol hydralazine Procardia - Coronary artery disease, status post coronary artery bypass graft, s/p percutaneous transluminal coronary angioplasty and stent placement to left main and left anterior descending in 2014. - Permanent pacemaker. No acute issues. - Dyslipidemia. Continue Lipitor. Problems: Subjective 24 Hr Interval Summary Free Text/Dictation Patient has no complaints Exam/Review of Systems Vital Signs Vitals Vital Signs Date Time Temp Pulse Resp B/P Pulse Ox O2 Delivery O2 Flow Rate FiO2 08/02/16 12:01 69 08/02/16 11:52 98.6 16 119/59 99 08/02/16 05:54 21 08/01/16 19:54 Room Air Intake and Output 08/01/16 08/01/16 08/02/16 15:00 23:00 07:00 Intake Total 350 ml 900 ml 210 ml Output Total 2300 ml Balance 350 ml -1400 ml 210 ml Exam Constitutional: well developed Head: atraumatic, normocephalic Neck: supple Respiratory: diminished breath sounds Cardiovascular: regular rate and rhythm Gastrointestinal: non-tender, soft Extremities: normal pulses Results Result Diagram: 08/01/16 1025 08/02/16 0946 Results 24 hrs Laboratory Tests Test 08/01/16 17:10 08/01/16 21:03 08/02/16 02:05 08/02/16 09:30 Bedside Glucose 158 205 138 118 Test 08/02/16 09:46 08/02/16 12:56 Sodium Level 140 Potassium Level 4.5 Chloride Level 101 Carbon Dioxide Level 27 Anion Gap 17 H Blood Urea Nitrogen 62 #H Creatinine 6.54 #H Glucose Level 115 Calcium Level 9.0 Bedside Glucose 146 Medications Medications Current Medications Aspirin (Halfprin) 81 mg DAILY PO Last administered on 07/26/16 08:39; Admin Dose 81 MG; Start 07/25/16 at 09:00; Status Future Hold Atorvastatin Calcium (Lipitor) 10 mg QHS PO Last administered on 08/01/16 21: 08; Admin Dose 10 MG; Start 07/24/16 at 21:00 Benazepril HCl (Lotensin) 40 mg BID PO Last administered on 08/01/16 21:08; Admin Dose 40 MG; Start 07/24/16 at 21:00 Cholecalciferol (Vitamin D) 400 units DAILY PO Last administered on 08/02/16 09 :35; Admin Dose 400 UNITS; Start 07/25/16 at 09:00 Famotidine (Pepcid) 20 mg DAILY PO Last administered on 08/02/16 09:36; Admin Dose 20 MG; Start 07/25/16 at 09:00 Ferrous Sulfate (Ferrous Sulfate (Ec)) 325 mg BID PO Last administered on 09:36; Admin Dose 325 MG; Start 07/24/16 at 21:00 Acetaminophen/ Hydrocodone Bitart ([place] (5/325)) 1 tab Q4H PRN PO PAIN; Start 07/24/16 at 17:00 Insulin Glargine (Lantus) 6 unit DAILY@20 SC Last administered on 08/01/16 21: 05; Admin Dose 6 UNIT; Start 07/24/16 at 20:00 Isoniazid (Isoniazid) 300 mg DAILY PO Last administered on 08/02/16 09:35; Admin Dose 300 MG; Start 07/24/16 at 15:30 Nifedipine (Procardia Xl) 60 mg BID PO Last administered on 08/01/16 21:08; Admin Dose 60 MG; Start 07/24/16 at 21:00 Pyridoxine HCl (Vitamin B6) 50 mg DAILY PO Last administered on 08/02/16 09:35 ; Admin Dose 50 MG; Start 07/25/16 at 09:00 Rifampin (Rifampin) 600 mg DAILY PO Last administered on 08/02/16 09:36; Admin Dose 600 MG; Start 07/25/16 at 09:00 Miscellaneous Information 1 ea NOTE XX ; Start 07/24/16 at 16:00 Glucose (Glutose) 15 gm Q15M PRN PO DECREASED GLUCOSE; Start 07/24/16 at 16:00 Glucose (Glutose) 22.5 gm Q15M PRN PO DECREASED GLUCOSE; Start 07/24/16 at 16: 00 Dextrose (D50w Syringe) 25 ml Q15M PRN IV DECREASED GLUCOSE; Start 07/24/16 at 16:00 Dextrose (D50w Syringe) 50 ml Q15M PRN IV DECREASED GLUCOSE; Start 07/24/16 at 16:00 Glucagon (Glucagen) 1 mg Q15M PRN IM DECREASED GLUCOSE; Start 07/24/16 at 16:00 Glucose (Glutose) 15 gm Q15M PRN BUCCAL DECREASED GLUCOSE; Start 07/24/16 at 16 :00 Ondansetron HCl (Zofran Inj) 4 mg Q4 PRN IV nausea Last administered on 02:05; Admin Dose 4 MG; Start 07/24/16 at 17:00 Hydromorphone HCl (Dilaudid) 1 mg Q4 PRN IV pain Last administered on 08/02/16 10:49; Admin Dose 1 MG; Start 07/24/16 at 17:00 Metoclopramide HCl (Reglan) 5 mg Q4H PRN IV NAUSEA Last administered on 10:46; Admin Dose 5 MG; Start 07/24/16 at 22:30 Diagnostic Test (Pha) (Accu-Chek) 1 ea 02 XX Last administered on 07/28/16 02: 54; Admin Dose 1 EA; Start 07/26/16 at 12:00 Metoprolol Tartrate (Lopressor) 100 mg BID GTB Last administered on 08/01/16 21:07; Admin Dose 100 MG; Start 07/26/16 at 13:30 Clonidine HCl (Catapres-Tts 2 Patch) 1 patch Q7D TRANSDERM Last administered on 07/27/16 08:27; Admin Dose 1 PATCH; Start 07/27/16 at 07:00 Pantoprazole (Protonix Tab) 40 mg DAILY@06 PO Last administered on 08/02/16 05: 59; Admin Dose 40 MG; Start 07/28/16 at 06:00 Hydralazine HCl (Apresoline) 20 mg Q4 PRN IV ELEVATED BLOOD PRESSURE Last administered on 07/30/16 02:15; Admin Dose 20 MG; Start 07/28/16 at 02:00 Doxazosin Mesylate (Cardura) 2 mg HS PO Last administered on 08/01/16 21:08; Admin Dose 2 MG; Start 07/28/16 at 21:00 Polyethylene Glycol (Miralax) 17 gm DAILY PRN GTB CONSTIPATION Last administered on 07/28/16 20:22; Admin Dose 17 GM; Start 07/28/16 at 19:30 Lorazepam (Ativan) 1 mg Q4H PRN IV anxiety Last administered on 07/30/16 20:48 ; Admin Dose 1 MG; Start 07/29/16 at 06:30 Ethambutol HCl (Myambutol) 900 mg TuThSa@20 PO Last administered on 07/31/16 21:07; Admin Dose 900 MG; Start 07/31/16 at 20:00 Pyrazinamide (Pyrazinamide) 1,250 mg TuThSa@20 PO ; Start 07/31/16 at 20:00 HELEN SHARP Aug 02, 2016 13:09
--- NOTE | 2016-08-02 13:41 | CONS ---
Date/Time of Note Date/Time of Note DATE: 08/02/16 TIME: 13:34 Assessment/Plan Assessment/Plan Additional Assessment/Plan CAD with PTCA and stent placement to left main and left anterior descending in 2014. History of coronary artery bypass graft surgery. End-stage renal disease on hemodialysis. Tuberculosis, on therapy. Hypertension Diabetes mellitus. Dyslipidemia. Empyema/cavitary lesions by CT S/P VATS and Pleurodesis Ruled out of ACS Clinically not in heart failure Continue Metoprolol and Benazepril Continue HD as scheduled Continue anti TB regimen as scheduled Continue Insulin Continue Lipitor Consultation Date/Type/Reason Admit Date/Time Jul 24, 2016 at 12:53 Constitutional: other (crancky) Eyes: no complaints ENT: no complaints Respiratory: cough, No pain, No pleuritic pain, No shortness of breath, No sputum Cardiovascular: no complaints Gastrointestinal: nausea Genitourinary: other (HD) Musculoskeletal: no complaints Skin: no complaints Neurologic: no complaints Endocrine: no complaints Lymphatic: no complaints Psychological: no complaints Immunologic: no complaints Past Surgical History Past Surgical Hx: no surgical history, angioplasty, other Social History Alcohol Use: none Smoking Status: Former smoker Drug Use: other Exam/Review of Systems Vital Signs Vitals Vital Signs Date Time Temp Pulse Resp B/P Pulse Ox O2 Delivery O2 Flow Rate FiO2 08/02/16 12:01 69 08/02/16 11:52 98.6 16 119/59 99 08/02/16 05:54 21 08/01/16 19:54 Room Air Intake and Output 08/01/16 08/01/16 08/02/16 15:00 23:00 07:00 Intake Total 350 ml 900 ml 210 ml Output Total 2300 ml Balance 350 ml -1400 ml 210 ml Exam Head: atraumatic, normocephalic Neck: non-tender, supple Respiratory: clear to auscultation Cardiovascular: regular rate and rhythm Gastrointestinal: nl liver, spleen, non-tender, soft Extremities: normal pulses Results Result Diagram: 08/01/16 1025 08/02/16 0946 Results 24 hrs Laboratory Tests Test 08/01/16 17:10 08/01/16 21:03 08/02/16 02:05 08/02/16 09:30 Bedside Glucose 158 205 138 118 Test 08/02/16 09:46 08/02/16 12:56 Sodium Level 140 Potassium Level 4.5 Chloride Level 101 Carbon Dioxide Level 27 Anion Gap 17 H Blood Urea Nitrogen 62 #H Creatinine 6.54 #H Glucose Level 115 Calcium Level 9.0 Bedside Glucose 146 Medications Medications Current Medications Aspirin (Halfprin) 81 mg DAILY PO Last administered on 07/26/16 08:39; Admin Dose 81 MG; Start 07/25/16 at 09:00; Status Future Hold Atorvastatin Calcium (Lipitor) 10 mg QHS PO Last administered on 08/01/16 21: 08; Admin Dose 10 MG; Start 07/24/16 at 21:00 Benazepril HCl (Lotensin) 40 mg BID PO Last administered on 08/01/16 21:08; Admin Dose 40 MG; Start 07/24/16 at 21:00 Cholecalciferol (Vitamin D) 400 units DAILY PO Last administered on 08/02/16 09 :35; Admin Dose 400 UNITS; Start 07/25/16 at 09:00 Famotidine (Pepcid) 20 mg DAILY PO Last administered on 08/02/16 09:36; Admin Dose 20 MG; Start 07/25/16 at 09:00 Ferrous Sulfate (Ferrous Sulfate (Ec)) 325 mg BID PO Last administered on 09:36; Admin Dose 325 MG; Start 07/24/16 at 21:00 Acetaminophen/ Hydrocodone Bitart ([place] (5/325)) 1 tab Q4H PRN PO PAIN; Start 07/24/16 at 17:00 Insulin Glargine (Lantus) 6 unit DAILY@20 SC Last administered on 08/01/16 21: 05; Admin Dose 6 UNIT; Start 07/24/16 at 20:00 Isoniazid (Isoniazid) 300 mg DAILY PO Last administered on 08/02/16 09:35; Admin Dose 300 MG; Start 07/24/16 at 15:30 Nifedipine (Procardia Xl) 60 mg BID PO Last administered on 08/01/16 21:08; Admin Dose 60 MG; Start 07/24/16 at 21:00 Pyridoxine HCl (Vitamin B6) 50 mg DAILY PO Last administered on 08/02/16 09:35 ; Admin Dose 50 MG; Start 07/25/16 at 09:00 Rifampin (Rifampin) 600 mg DAILY PO Last administered on 08/02/16 09:36; Admin Dose 600 MG; Start 07/25/16 at 09:00 Miscellaneous Information 1 ea NOTE XX ; Start 07/24/16 at 16:00 Glucose (Glutose) 15 gm Q15M PRN PO DECREASED GLUCOSE; Start 07/24/16 at 16:00 Glucose (Glutose) 22.5 gm Q15M PRN PO DECREASED GLUCOSE; Start 07/24/16 at 16: 00 Dextrose (D50w Syringe) 25 ml Q15M PRN IV DECREASED GLUCOSE; Start 07/24/16 at 16:00 Dextrose (D50w Syringe) 50 ml Q15M PRN IV DECREASED GLUCOSE; Start 07/24/16 at 16:00 Glucagon (Glucagen) 1 mg Q15M PRN IM DECREASED GLUCOSE; Start 07/24/16 at 16:00 Glucose (Glutose) 15 gm Q15M PRN BUCCAL DECREASED GLUCOSE; Start 07/24/16 at 16 :00 Ondansetron HCl (Zofran Inj) 4 mg Q4 PRN IV nausea Last administered on 02:05; Admin Dose 4 MG; Start 07/24/16 at 17:00 Hydromorphone HCl (Dilaudid) 1 mg Q4 PRN IV pain Last administered on 08/02/16 10:49; Admin Dose 1 MG; Start 07/24/16 at 17:00 Metoclopramide HCl (Reglan) 5 mg Q4H PRN IV NAUSEA Last administered on 10:46; Admin Dose 5 MG; Start 07/24/16 at 22:30 Diagnostic Test (Pha) (Accu-Chek) 1 ea 02 XX Last administered on 07/28/16 02: 54; Admin Dose 1 EA; Start 07/26/16 at 12:00 Metoprolol Tartrate (Lopressor) 100 mg BID GTB Last administered on 08/01/16 21:07; Admin Dose 100 MG; Start 07/26/16 at 13:30 Clonidine HCl (Catapres-Tts 2 Patch) 1 patch Q7D TRANSDERM Last administered on 07/27/16 08:27; Admin Dose 1 PATCH; Start 07/27/16 at 07:00 Pantoprazole (Protonix Tab) 40 mg DAILY@06 PO Last administered on 08/02/16 05: 59; Admin Dose 40 MG; Start 07/28/16 at 06:00 Hydralazine HCl (Apresoline) 20 mg Q4 PRN IV ELEVATED BLOOD PRESSURE Last administered on 07/30/16 02:15; Admin Dose 20 MG; Start 07/28/16 at 02:00 Doxazosin Mesylate (Cardura) 2 mg HS PO Last administered on 08/01/16 21:08; Admin Dose 2 MG; Start 07/28/16 at 21:00 Polyethylene Glycol (Miralax) 17 gm DAILY PRN GTB CONSTIPATION Last administered on 07/28/16 20:22; Admin Dose 17 GM; Start 07/28/16 at 19:30 Lorazepam (Ativan) 1 mg Q4H PRN IV anxiety Last administered on 07/30/16 20:48 ; Admin Dose 1 MG; Start 07/29/16 at 06:30 Ethambutol HCl (Myambutol) 900 mg TuThSa@20 PO Last administered on 07/31/16 21:07; Admin Dose 900 MG; Start 07/31/16 at 20:00 Pyrazinamide (Pyrazinamide) 1,250 mg TuThSa@20 PO ; Start 07/31/16 at 20:00 PHILL PAGE M.D. Aug 02, 2016 13:41
--- NOTE | 2016-08-02 15:36 | CONS ---
Date/Time of Note Date/Time of Note DATE: 08/02/16 TIME: 15:35 Assessment/Plan Assessment/Plan Chief Complaint/Hosp Course 1. Acute kidney injury, pt is oh HD 2. Lung infiltrate./cavitary lesion 3. chronic lung disease. 4. Hypertension. 5. Diabetes mellitus. 6. 7. anemia. 8. cad. 9. Leukocytosis.better 10. ashd 11. s/p vats. 12. The patient on anti-tuberculosis treatment. Problems: Additional Assessment/Plan 1. HD today 2. VATs on Thursday Consultation Date/Type/Reason Admit Date/Time Jul 24, 2016 at 12:53 Initial Consult Date 07/25/16 Type of Consultation: Nephrology Referring Provider: EVA COX MD 24 HR Interval Summary Constitutional: no complaints Exam/Review of Systems Vital Signs Vitals Vital Signs Date Time Temp Pulse Resp B/P Pulse Ox O2 Delivery O2 Flow Rate FiO2 08/02/16 12:01 69 08/02/16 11:52 98.6 16 119/59 99 08/02/16 05:54 21 08/01/16 19:54 Room Air Intake and Output 08/01/16 08/01/16 08/02/16 15:00 23:00 07:00 Intake Total 350 ml 900 ml 210 ml Output Total 2300 ml Balance 350 ml -1400 ml 210 ml Exam Constitutional: alert Psych: no complaints Head: normocephalic Eyes: nl conjunctiva ENMT: nl external ears & nose Neck: supple Results Result Diagram: 08/01/16 1025 08/02/16 0946 Results 24 hrs Laboratory Tests Test 08/01/16 17:10 08/01/16 21:03 08/02/16 02:05 08/02/16 09:30 Bedside Glucose 158 205 138 118 Test 08/02/16 09:46 08/02/16 12:56 Sodium Level 140 Potassium Level 4.5 Chloride Level 101 Carbon Dioxide Level 27 Anion Gap 17 H Blood Urea Nitrogen 62 #H Creatinine 6.54 #H Glucose Level 115 Calcium Level 9.0 Bedside Glucose 146 Medications Medications Current Medications Aspirin (Halfprin) 81 mg DAILY PO Last administered on 07/26/16t 08:39; Admin Dose 81 MG; Start 07/25/16 at 09:00; Status Future Hold Atorvastatin Calcium (Lipitor) 10 mg QHS PO Last administered on 08/01/16 21: 08; Admin Dose 10 MG; Start 07/24/16 at 21:00 Benazepril HCl (Lotensin) 40 mg BID PO Last administered on 08/01/16 21:08; Admin Dose 40 MG; Start 07/24/16 at 21:00 Cholecalciferol (Vitamin D) 400 units DAILY PO Last administered on 08/02/16 09 :35; Admin Dose 400 UNITS; Start 07/25/16 at 09:00 Famotidine (Pepcid) 20 mg DAILY PO Last administered on 08/02/16 09:36; Admin Dose 20 MG; Start 07/25/16 at 09:00 Ferrous Sulfate (Ferrous Sulfate (Ec)) 325 mg BID PO Last administered on 09:36; Admin Dose 325 MG; Start 07/24/16 at 21:00 Acetaminophen/ Hydrocodone Bitart ([place] (5/325)) 1 tab Q4H PRN PO PAIN; Start 07/24/16 at 17:00 Insulin Glargine (Lantus) 6 unit DAILY@20 SC Last administered on 08/01/16 21: 05; Admin Dose 6 UNIT; Start 07/24/16 at 20:00 Isoniazid (Isoniazid) 300 mg DAILY PO Last administered on 08/02/16 09:35; Admin Dose 300 MG; Start 07/24/16 at 15:30 Nifedipine (Procardia Xl) 60 mg BID PO Last administered on 08/01/16 21:08; Admin Dose 60 MG; Start 07/24/16 at 21:00 Pyridoxine HCl (Vitamin B6) 50 mg DAILY PO Last administered on 08/02/16 09:35 ; Admin Dose 50 MG; Start 07/25/16 at 09:00 Rifampin (Rifampin) 600 mg DAILY PO Last administered on 08/02/16 09:36; Admin Dose 600 MG; Start 07/25/16 at 09:00 Miscellaneous Information 1 ea NOTE XX ; Start 07/24/16 at 16:00 Glucose (Glutose) 15 gm Q15M PRN PO DECREASED GLUCOSE; Start 07/24/16 at 16:00 Glucose (Glutose) 22.5 gm Q15M PRN PO DECREASED GLUCOSE; Start 07/24/16 at 16: 00 Dextrose (D50w Syringe) 25 ml Q15M PRN IV DECREASED GLUCOSE; Start 07/24/16 at 16:00 Dextrose (D50w Syringe) 50 ml Q15M PRN IV DECREASED GLUCOSE; Start 07/24/16 at 16:00 Glucagon (Glucagen) 1 mg Q15M PRN IM DECREASED GLUCOSE; Start 07/24/16 at 16:00 Glucose (Glutose) 15 gm Q15M PRN BUCCAL DECREASED GLUCOSE; Start 07/24/16 at 16 :00 Ondansetron HCl (Zofran Inj) 4 mg Q4 PRN IV nausea Last administered on 02:05; Admin Dose 4 MG; Start 07/24/16 at 17:00 Hydromorphone HCl (Dilaudid) 1 mg Q4 PRN IV pain Last administered on 08/02/16 10:49; Admin Dose 1 MG; Start 07/24/16 at 17:00 Metoclopramide HCl (Reglan) 5 mg Q4H PRN IV NAUSEA Last administered on 10:46; Admin Dose 5 MG; Start 07/24/16 at 22:30 Diagnostic Test (Pha) (Accu-Chek) 1 ea 02 XX Last administered on 07/28/16 02: 54; Admin Dose 1 EA; Start 07/26/16 at 12:00 Metoprolol Tartrate (Lopressor) 100 mg BID GTB Last administered on 08/01/16 21:07; Admin Dose 100 MG; Start 07/26/16 at 13:30 Clonidine HCl (Catapres-Tts 2 Patch) 1 patch Q7D TRANSDERM Last administered on 07/27/16 08:27; Admin Dose 1 PATCH; Start 07/27/16 at 07:00 Pantoprazole (Protonix Tab) 40 mg DAILY@06 PO Last administered on 08/02/16 05: 59; Admin Dose 40 MG; Start 07/28/16 at 06:00 Hydralazine HCl (Apresoline) 20 mg Q4 PRN IV ELEVATED BLOOD PRESSURE Last administered on 07/30/16 02:15; Admin Dose 20 MG; Start 07/28/16 at 02:00 Doxazosin Mesylate (Cardura) 2 mg HS PO Last administered on 08/01/16 21:08; Admin Dose 2 MG; Start 07/28/16 at 21:00 Polyethylene Glycol (Miralax) 17 gm DAILY PRN GTB CONSTIPATION Last administered on 07/28/16 20:22; Admin Dose 17 GM; Start 07/28/16 at 19:30 Lorazepam (Ativan) 1 mg Q4H PRN IV anxiety Last administered on 07/30/16 20:48 ; Admin Dose 1 MG; Start 07/29/16 at 06:30 Ethambutol HCl (Myambutol) 900 mg TuThSa@20 PO Last administered on 07/31/16 21:07; Admin Dose 900 MG; Start 07/31/16 at 20:00 Pyrazinamide (Pyrazinamide) 1,250 mg TuThSa@20 PO ; Start 07/31/16 at 20:00 TERRIE YOST Aug 02, 2016 15:36
--- NOTE | 2016-08-02 16:16 | CONS ---
Date/Time of Note Date/Time of Note DATE: 08/02/16 TIME: 16:13 Consult Date/Type/Reason Admit Date/Time Jun 13, 2016 at 14:48 Type of Consultation: Pulm Ordering Provider: EVA COX MD Subjective Some hemoptysis noted today--quantity appears minimal Objective Exam HEENT: Neck supple; no JVD; no LAD CVS: RRR, S1 and S2 CHEST: Decreased BS right base ABD: Soft, NT, + BS EXT: No c/c/e Assessment/Plan Additional Assessment/Plan IMP: 1. Right TB empyema with bleeding into pleural space and associated BPH--> leading to hemoptysis RECS: 1. Quantify all hemoptysis 2. If more than 100 ml/hr transfer to ICU and place right side down and intubate left mainstem 3. He will need VATS repair JAMMIE. SONYA ODEN MD Aug 02, 2016 16:16
[2016-08-02] MEDS: PYRAZINAMIDE 500 MG TAB PO SCH (20:00)
[2016-08-02] MEDS: ETHAMBUTOL 400 MG TAB PO SCH (20:00)
--- NOTE | 2016-08-02 20:12 | CONS ---
NORI JORGENSEN NP 08/02/16 2012: Date/Time of Note Date/Time of Note DATE: 08/02/16 TIME: 20:12 Assessment/Plan Assessment/Plan Chief Complaint/Hosp Course assessment/impression - possible tubercular empyema: R sided complex loculated air containing empyemas , visceral and parietal pleural calcifications. - a 35 mm lesion with possible cavitation in the anterior inferior RUL, possible recurrent tuberculosis - high risk for TB: history (originally from [facility], spends one month of each year in [facility], last in 09/2015), medical history (DM, ESRD), laboratory findings (positive quantiferon TB gold, granulomatous inflammation with focal necrosis on Bx of pleura) - AFB smear was negative x3, also M. tuberculosis DNA probe to the 1st sputum sample was undetectable in early 07/2016 - s/p R VATS, total pulmonary decortication, R pleurodesis on 06/30/2016. Biopsy was negative for fungal stain and AFB stain (micro lab and pathology department), as well as malignancy. It showed granulomatous inflammation with focal necrosis and extensive hyalinization. Chest tube was removed - h/o recurrent pleural effusion requiring thoracentesis approximately once a year, last performed in 04/2016 prior to this admission - positive quantiferon TB gold status of unknown duration. Per Pt, his past PPD was done in 2013, and was negative. - Our infection automation control technician Lindsey contacted the TB control unit at [facility]: we learned on 07/11/2016 that Pt has h/o mycobacterial tuberculosis infection in 1997 and was treated between 1997 and 1998. - DM - Hgb A1c 5.2% 06/17/16 - ESRD on HD - CAD s/p CABG in 2010 and cardiac stent in 2013 - HIV screen negative in 07/2016 tested at [facility] - nausea, Pt has been taking TB meds according to his RN recommendations - F/u AFB smear and culture x2; MTB DNA probe added to the 1st sample by Dr. Verduzco (Yuriy at micro lab) - continue renally dosed RIPE plus vitamin B6 supplement (07/12/2016-) - check LFTs' weekly - Mgmt d/w pt's - Above d/w Dr. Verduzco Problems: Consultation Date/Type/Reason Admit Date/Time Jul 24, 2016 at 12:53 Initial Consult Date 07/25/16 Type of Consultation: Infectious Disease Referring Provider: EVA COX MD 24 HR Interval Summary Free Text/Dictation 3rd AFB sample given but reports "I don't think it was enough". Pt is weak, has no appetite, and reports HD was stopped due to low BP. Pt still has R thorax pain despite dilaudid. Subjective hx not possible: pt non-verbal Exam/Review of Systems Vital Signs Vitals Vital Signs Date Time Temp Pulse Resp B/P Pulse Ox O2 Delivery O2 Flow Rate FiO2 08/02/16 16:01 69 08/02/16 15:46 97.7 16 166/74 94 08/02/16 05:54 21 08/01/16 19:54 Room Air Intake and Output 08/01/16 08/01/16 08/02/16 15:00 23:00 07:00 Intake Total 350 ml 900 ml 210 ml Output Total 2300 ml Balance 350 ml -1400 ml 210 ml Exam Constitutional: frail, non-verbal, other (thin), well developed Head: atraumatic, normocephalic Neck: supple Respiratory: diminished breath sounds, normal air movement, other (Right anterior thorax dressing c/d/i) Cardiovascular: regular rate and rhythm Gastrointestinal: non-tender, soft Musculoskeletal: nl extremities to inspection Extremities: normal pulses Neurological: lethargic Skin: nl turgor, No rash or lesions Results Result Diagram: 08/01/16 1025 08/02/16 0946 Results 24 hrs Laboratory Tests Test 08/01/16 21:03 08/02/16 02:05 08/02/16 09:30 08/02/16 09:46 Bedside Glucose 205 138 118 Sodium Level 140 Potassium Level 4.5 Chloride Level 101 Carbon Dioxide Level 27 Anion Gap 17 H Blood Urea Nitrogen 62 #H Creatinine 6.54 #H Glucose Level 115 Calcium Level 9.0 Test 08/02/16 12:56 08/02/16 17:46 Bedside Glucose 146 131 Medications Medications Current Medications Aspirin (Halfprin) 81 mg DAILY PO Last administered on 07/26/16 08:39; Admin Dose 81 MG; Start 07/25/16 at 09:00; Status Future Hold Atorvastatin Calcium (Lipitor) 10 mg QHS PO Last administered on 08/01/16 21: 08; Admin Dose 10 MG; Start 07/24/16 at 21:00 Benazepril HCl (Lotensin) 40 mg BID PO Last administered on 08/01/16 21:08; Admin Dose 40 MG; Start 07/24/16 at 21:00 Cholecalciferol (Vitamin D) 400 units DAILY PO Last administered on 08/02/16 09 :35; Admin Dose 400 UNITS; Start 07/25/16 at 09:00 Famotidine (Pepcid) 20 mg DAILY PO Last administered on 08/02/16 09:36; Admin Dose 20 MG; Start 07/25/16 at 09:00 Ferrous Sulfate (Ferrous Sulfate (Ec)) 325 mg BID PO Last administered on 09:36; Admin Dose 325 MG; Start 07/24/16 at 21:00 Acetaminophen/ Hydrocodone Bitart ([place] (5/325)) 1 tab Q4H PRN PO PAIN; Start 07/24/16 at 17:00 Insulin Glargine (Lantus) 6 unit DAILY@20 SC Last administered on 08/01/16 21: 05; Admin Dose 6 UNIT; Start 07/24/16 at 20:00 Isoniazid (Isoniazid) 300 mg DAILY PO Last administered on 08/02/16 09:35; Admin Dose 300 MG; Start 07/24/16 at 15:30 Nifedipine (Procardia Xl) 60 mg BID PO Last administered on 08/01/16 21:08; Admin Dose 60 MG; Start 07/24/16 at 21:00 Pyridoxine HCl (Vitamin B6) 50 mg DAILY PO Last administered on 08/02/16 09:35 ; Admin Dose 50 MG; Start 07/25/16 at 09:00 Rifampin (Rifampin) 600 mg DAILY PO Last administered on 08/02/16 09:36; Admin Dose 600 MG; Start 07/25/16 at 09:00 Miscellaneous Information 1 ea NOTE XX ; Start 07/24/16 at 16:00 Glucose (Glutose) 15 gm Q15M PRN PO DECREASED GLUCOSE; Start 07/24/16 at 16:00 Glucose (Glutose) 22.5 gm Q15M PRN PO DECREASED GLUCOSE; Start 07/24/16 at 16: 00 Dextrose (D50w Syringe) 25 ml Q15M PRN IV DECREASED GLUCOSE; Start 07/24/16 at 16:00 Dextrose (D50w Syringe) 50 ml Q15M PRN IV DECREASED GLUCOSE; Start 07/24/16 at 16:00 Glucagon (Glucagen) 1 mg Q15M PRN IM DECREASED GLUCOSE; Start 07/24/16 at 16:00 Glucose (Glutose) 15 gm Q15M PRN BUCCAL DECREASED GLUCOSE; Start 07/24/16 at 16 :00 Ondansetron HCl (Zofran Inj) 4 mg Q4 PRN IV nausea Last administered on 17:51; Admin Dose 4 MG; Start 07/24/16 at 17:00 Metoclopramide HCl (Reglan) 5 mg Q4H PRN IV NAUSEA Last administered on 10:46; Admin Dose 5 MG; Start 07/24/16 at 22:30 Diagnostic Test (Pha) (Accu-Chek) 1 ea 02 XX Last administered on 07/28/16 02: 54; Admin Dose 1 EA; Start 07/26/16 at 12:00 Metoprolol Tartrate (Lopressor) 100 mg BID GTB Last administered on 08/01/16 21:07; Admin Dose 100 MG; Start 07/26/16 at 13:30 Clonidine HCl (Catapres-Tts 2 Patch) 1 patch Q7D TRANSDERM Last administered on 07/27/16 08:27; Admin Dose 1 PATCH; Start 07/27/16 at 07:00 Pantoprazole (Protonix Tab) 40 mg DAILY@06 PO Last administered on 08/02/16 05: 59; Admin Dose 40 MG; Start 07/28/16 at 06:00 Hydralazine HCl (Apresoline) 20 mg Q4 PRN IV ELEVATED BLOOD PRESSURE Last administered on 07/30/16 02:15; Admin Dose 20 MG; Start 07/28/16 at 02:00 Doxazosin Mesylate (Cardura) 2 mg HS PO Last administered on 08/01/16 21:08; Admin Dose 2 MG; Start 07/28/16 at 21:00 Polyethylene Glycol (Miralax) 17 gm DAILY PRN GTB CONSTIPATION Last administered on 07/28/16 20:22; Admin Dose 17 GM; Start 07/28/16 at 19:30 Lorazepam (Ativan) 1 mg Q4H PRN IV anxiety Last administered on 07/30/16 20:48 ; Admin Dose 1 MG; Start 07/29/16 at 06:30 Ethambutol HCl (Myambutol) 900 mg TuThSa@20 PO Last administered on 07/31/16 21:07; Admin Dose 900 MG; Start 07/31/16 at 20:00 Pyrazinamide (Pyrazinamide) 1,250 mg TuThSa@20 PO ; Start 07/31/16 at 20:00 Hydromorphone HCl (Dilaudid) 1 mg Q2H PRN IV pain Last administered on 18:50; Admin Dose 1 MG; Start 08/02/16 at 19:[address] 07/29/16: 1. Previously seen right pleural effusion now represents a complex loculated air containing empyemas. 2. Right lung complex empyemas demonstrate visceral and parietal pleura calcifications. 3. Pleural calcifications can be seen in association with an active tubercular empyema. 4. 35 mm lesion with possible cavitation in the anterior inferior right upper lobe is also concerning for active tuberculosis. YUMIKO VERDUZCO M.D. 08/04/16 1907: Assessment/Plan Assessment/Plan Chief Complaint/Hosp Course Dax attestation: I discussed the management with ISABEL Jorgensen and agree with above. Problems: Exam/Review of Systems Results Result Diagram: 08/01/16 1025 08/02/16 0946 NORI JORGENSEN NP Aug 02, 2016 20:12 YUMIKO VERDUZCO M.D. Aug 04, 2016 19:07
--- NOTE | 2016-08-02 20:53 | PN ---
Date/Time of Note Date/Time of Note DATE: 08/02/16 TIME: 20:52 Assessment/Plan Lines/Catheters IV Catheter Type (from Nrsg): Central Line Jonas in Place (from Nrsg): No Assessment/Plan Chief Complaint/Hosp Course IMPRESSION: Right chest tube site bleeding, which has now subsided completely. Hgb stable Would monitor the hemoglobin levels and stop the antiplatelet. plan for VATS on Thursday OR time is available Problems: Subjective 24 Hr Interval Summary Constitutional: improved Pain Control: mild Exam/Review of Systems Vital Signs Vitals Vital Signs Date Time Temp Pulse Resp B/P Pulse Ox O2 Delivery O2 Flow Rate FiO2 08/02/16 20:16 69 08/02/16 20:00 97.5 18 112/59 91 08/02/16 05:54 21 08/01/16 19:54 Room Air Intake and Output 08/01/16 08/01/16 08/02/16 15:00 23:00 07:00 Intake Total 350 ml 900 ml 210 ml Output Total 2300 ml Balance 350 ml -1400 ml 210 ml Exam ENMT: mucosa pink and moist, nl external ears & nose, nl lips & teeth, nl nasal mucosa & septum Neck: non-tender, supple Respiratory: clear to auscultation, normal air movement Cardiovascular: nl pulses, regular rate and rhythm Results Result Diagram: 08/01/16 1025 08/02/16 0946 LILIA FELIZ MD Aug 02, 2016 20:53
[2016-08-02] MEDS: INSULIN GLARGINE [LANtus] 3 ML PEN SC SCH (21:01)
[2016-08-02] MEDS: ATORVASTATIN 10 MG TAB PO SCH (21:02)
[2016-08-02] MEDS: DOXAZOSIN 2 MG TAB PO SCH (21:05)
[2016-08-03] VITALS (11 sets, daily range): BP systolic 139–163; BP diastolic 61–72; PULSE 69; RESP 18–20
[2016-08-03] MEDS: ACCUCHECK 2 AM XX SCH (02:00)
[2016-08-03] MEDS: ONDANSETRON 4 MG INJ IV PRN ×3 (02:15→12:25)
[2016-08-03] MEDS: HYDROmorphONE 1 MG/ML SYG IV PRN (02:19)
[2016-08-03] MEDS: PANTOPRAZOLE (EC) 40 MG TAB PO SCH (06:32)
[2016-08-03] MEDS: CLONIDINE 0.2 MG/24 HR PATCH TRANSDERM SCH (06:32)
[2016-08-03] MEDS: Insulin NOVOLOG SS MILD Algorithm (SS with meals and bedtime) SC SCH ×4 (07:30→21:00)
[2016-08-03 08:13] LABS: ADD SCAN DIFF NO
[2016-08-03 08:28] LABS: BASOPHILS % 0.4 % (0.0-2.0); EOSINOPHILS # 0.1 10^3/ul (0.0-0.5); EOSINOPHILS % 0.5 % (0.0-7.0); HEMATOCRIT 26.5 % (42.0-52.0); HEMOGLOBIN 8.6 g/dl (14.0-18.0); LYMPHOCYTES # 0.7 10^3/ul (0.8-2.9); LYMPHOCYTES % 5.9 % (15.0-51.0); MEAN CORPUSCULAR HEMOGLOBIN 31.3 pg (29.0-33.0); MEAN CORPUSCULAR HGB CONC 32.5 g/dl (32.0-37.0); MEAN CORPUSCULAR VOLUME 96.4 fl (82.0-101.0); MEAN PLATELET VOLUME 10.4 fl (7.4-10.4); MONOCYTE # 1.2 10^3/ul (0.3-0.9); MONOCYTES % 10.5 % (0.0-11.0); NEUTROPHILS % 82.3 % (39.0-77.0); PLATELET COUNT 140 10^3/UL (140-415); RED BLOOD COUNT 2.75 10^6/ul (4.70-6.10); RED CELL DISTRIBUTION WIDTH 16.3 % (11.5-14.5)
[2016-08-03 08:37] LABS: POTASSIUM 4.5 mmol/L (3.5-5.1)
[2016-08-03 08:40] LABS: CREATININE 7.11 mg/dl (0.61-1.24)
[2016-08-03 08:41] LABS: CALCIUM 8.8 mg/dl (8.4-10.2)
[2016-08-03 08:53] LABS: INR 1.03; PROTIME 13.5 Sec (12.2-14.2); PT RATIO 1.1
[2016-08-03 08:54] LABS: PARTIAL THROMBOPLASTIN TIME 38.3 Sec (25.0-35.0)
[2016-08-03] MEDS: BENAZEPRIL 40 MG TAB PO SCH ×2 (08:54→21:14)
[2016-08-03] MEDS: ISONIAZID 300 MG TAB PO SCH (08:55)
[2016-08-03] MEDS: SEVELAMER CARBONATE 0.8 GM PKT PO SCH ×3 (08:55→18:02)
[2016-08-03] MEDS: CALCIUM ACETATE 667 MG CAP PO SCH ×3 (08:55→18:03)
[2016-08-03] MEDS: NIFEdipine (XL) 60 MG TAB PO SCH ×2 (08:56→21:15)
[2016-08-03] MEDS: FERROUS SULFATE (EC) 325 MG TAB PO SCH ×2 (08:56→21:13)
[2016-08-03] MEDS: PYRIDOXINE 50 MG TAB PO SCH (08:56)
[2016-08-03] MEDS: METOPROLOL 100 MG TAB GTB SCH ×2 (08:56→21:15)
[2016-08-03] MEDS: CHOLECALCIFEROL 400 UNITS TAB PO SCH (08:57)
[2016-08-03] MEDS: RIFAMPIN 300 MG CAP PO SCH (08:57)
[2016-08-03] MEDS: FAMOTIDINE 20 MG TAB PO SCH (08:58)
[2016-08-03] MEDS: INSULIN ASPART [NOVOLOG] 3 ML PEN SC SCH ×2 (09:00→12:27)
[2016-08-03] MEDS ORDERED: DEXTROSE 50% 50 ML SYRINGE IV ONE (09:00)
--- NOTE | 2016-08-03 12:05 | PN ---
Date/Time of Note Date/Time of Note DATE: 08/03/16 TIME: 12:04 Assessment/Plan VTE Prophylaxis VTE Prophylaxis Intervention: other Lines/Catheters [facility]from [facility] Central Line Central line still needed: Yes Urinary Cath still in place: No Assessment/Plan Chief Complaint/Hosp Course - Recurrent right pleural effusion consistent with empyema, cavitary lesions, plan for VATS on Thursday upon OR availability. Plavix is on hold. - Hemoptysis, resolved. Dr. Dale is following in pulmonology consultation. Dr. Caitlin balderas is following an infection disease consultation. - Right former chest tube site bleeding, resolved. Dr. Martinez is following in thoracic surgery consultation. - Anemia of acute blood loss, patient had bleeding from the right femoral catheter as well as chest tube site on admission, status post blood transfusion , continue to monitor hemoglobin and hematocrit. Dr. Martinez is following in hematology consultation. 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 - End-stage renal disease, continue hemodialysis. Dr. Saunders is following in nephrology consultation. - Diabetes mellitus type 2, continue Lantus, pre-meal NovoLog and NovoLog per mild algorithm sliding scale. - Hypertension. Dr. De Santiago is following and cardiology consultation. Continue benazepril metoprolol hydralazine Procardia - Coronary artery disease, status post coronary artery bypass graft, s/p percutaneous transluminal coronary angioplasty and stent placement to left main and left anterior descending in 2014. - Permanent pacemaker. No acute issues. - Dyslipidemia. Continue Lipitor. Problems: Subjective 24 Hr Interval Summary Free Text/Dictation Patient complain of abdominal pain with pressure to abdominal wall Exam/Review of Systems Vital Signs Vitals Vital Signs Date Time Temp Pulse Resp B/P Pulse Ox O2 Delivery O2 Flow Rate FiO2 08/03/16 12:02 69 08/03/16 11:30 97.9 20 159/71 95 08/02/16 05:54 21 08/01/16 19:54 Room Air Intake and Output 08/02/16 08/02/16 08/03/16 15:00 23:00 07:00 Intake Total 900 ml 200 ml Output Total 500 ml Balance 400 ml 200 ml Exam Constitutional: well developed Head: atraumatic, normocephalic Neck: supple Respiratory: clear to auscultation Cardiovascular: regular rate and rhythm Gastrointestinal: non-tender, soft Results Result Diagram: 08/03/16 0738 08/03/16 0733 Results 24 hrs Laboratory Tests Test 08/02/16 12:56 08/02/16 17:46 08/02/16 20:59 08/03/16 07:33 Bedside Glucose 146 131 134 Prothrombin Time 13.5 Prothrombin Time Ratio 1.1 INR International Normalized Ratio 1.03 Activated Partial Thromboplast Time 38.3 H Sodium Level 136 Potassium Level 4.5 Chloride Level 103 Carbon Dioxide Level 24 Anion Gap 14 Blood Urea Nitrogen 66 H Creatinine 7.11 H Glucose Level 105 Calcium Level 8.8 Test 08/03/16 07:38 08/03/16 08:31 White Blood Count 11.0 H Red Blood Count 2.75 #L Hemoglobin 8.6 L Hematocrit 26.5 L Mean Corpuscular Volume 96.4 Mean Corpuscular Hemoglobin 31.3 Mean Corpuscular Hemoglobin Concent 32.5 Red Cell Distribution Width 16.3 H Platelet Count 140 # Mean Platelet Volume 10.4 Neutrophils % 82.3 H Lymphocytes % 5.9 L Monocytes % 10.5 Eosinophils % 0.5 Basophils % 0.4 Nucleated Red Blood Cells % 0.0 Neutrophils # 9.0 H Lymphocytes # 0.7 L Monocytes # 1.2 H Eosinophils # 0.1 Basophils # 0.0 Nucleated Red Blood Cells # 0.0 Bedside Glucose 115 Medications Medications Current Medications Aspirin (Halfprin) 81 mg DAILY PO Last administered on 07/26/16 08:39; Admin Dose 81 MG; Start 07/25/16 at 09:00; Status Future Hold Atorvastatin Calcium (Lipitor) 10 mg QHS PO Last administered on 08/02/16 21:02 ; Admin Dose 10 MG; Start 07/24/16 at 21:00 Benazepril HCl (Lotensin) 40 mg BID PO Last administered on 08/03/16 08:54; Admin Dose 40 MG; Start 07/24/16 at 21:00 Cholecalciferol (Vitamin D) 400 units DAILY PO Last administered on 08/03/16 08 :57; Admin Dose 400 UNITS; Start 07/25/16 at 09:00 Famotidine (Pepcid) 20 mg DAILY PO Last administered on 08/03/16 08:58; Admin Dose 20 MG; Start 07/25/16 at 09:00 Ferrous Sulfate (Ferrous Sulfate (Ec)) 325 mg BID PO Last administered on 08:56; Admin Dose 325 MG; Start 07/24/16 at 21:00 Acetaminophen/ Hydrocodone Bitart ([place] (5/325)) 1 tab Q4H PRN PO PAIN; Start 07/24/16 at 17:00 Insulin Glargine (Lantus) 6 unit DAILY@20 SC Last administered on 08/02/16 21: 01; Admin Dose 6 UNIT; Start 07/24/16 at 20:00 Isoniazid (Isoniazid) 300 mg DAILY PO Last administered on 08/03/16 08:55; Admin Dose 300 MG; Start 07/24/16 at 15:30 Nifedipine (Procardia Xl) 60 mg BID PO Last administered on 08/03/16 08:56; Admin Dose 60 MG; Start 07/24/16 at 21:00 Pyridoxine HCl (Vitamin B6) 50 mg DAILY PO Last administered on 08/03/16 08:56 ; Admin Dose 50 MG; Start 07/25/16 at 09:00 Rifampin (Rifampin) 600 mg DAILY PO Last administered on 08/03/16 08:57; Admin Dose 600 MG; Start 07/25/16 at 09:00 Miscellaneous Information 1 ea NOTE XX ; Start 07/24/16 at 16:00 Glucose (Glutose) 15 gm Q15M PRN PO DECREASED GLUCOSE; Start 07/24/16 at 16:00 Glucose (Glutose) 22.5 gm Q15M PRN PO DECREASED GLUCOSE; Start 07/24/16 at 16: 00 Dextrose (D50w Syringe) 25 ml Q15M PRN IV DECREASED GLUCOSE; Start 07/24/16 at 16:00 Dextrose (D50w Syringe) 50 ml Q15M PRN IV DECREASED GLUCOSE; Start 07/24/16 at 16:00 Glucagon (Glucagen) 1 mg Q15M PRN IM DECREASED GLUCOSE; Start 07/24/16 at 16:00 Glucose (Glutose) 15 gm Q15M PRN BUCCAL DECREASED GLUCOSE; Start 07/24/16 at 16 :00 Ondansetron HCl (Zofran Inj) 4 mg Q4 PRN IV nausea Last administered on 08:53; Admin Dose 4 MG; Start 07/24/16 at 17:00 Metoclopramide HCl (Reglan) 5 mg Q4H PRN IV NAUSEA Last administered on 10:46; Admin Dose 5 MG; Start 07/24/16 at 22:30 Diagnostic Test (Pha) (Accu-Chek) 1 ea 02 XX Last administered on 07/28/16 02: 54; Admin Dose 1 EA; Start 07/26/16 at 12:00 Metoprolol Tartrate (Lopressor) 100 mg BID GTB Last administered on 08/03/16 08 :56; Admin Dose 100 MG; Start 07/26/16 at 13:30 Clonidine HCl (Catapres-Tts 2 Patch) 1 patch Q7D TRANSDERM Last administered on 08/03/16 06:32; Admin Dose 1 PATCH; Start 07/27/16 at 07:00 Pantoprazole (Protonix Tab) 40 mg DAILY@06 PO Last administered on 08/03/16 06: 32; Admin Dose 40 MG; Start 07/28/16 at 06:00 Hydralazine HCl (Apresoline) 20 mg Q4 PRN IV ELEVATED BLOOD PRESSURE Last administered on 07/30/16 02:15; Admin Dose 20 MG; Start 07/28/16 at 02:00 Doxazosin Mesylate (Cardura) 2 mg HS PO Last administered on 08/02/16 21:05; Admin Dose 2 MG; Start 07/28/16 at 21:00 Polyethylene Glycol (Miralax) 17 gm DAILY PRN GTB CONSTIPATION Last administered on 07/28/16 20:22; Admin Dose 17 GM; Start 07/28/16 at 19:30 Lorazepam (Ativan) 1 mg Q4H PRN IV anxiety Last administered on 07/30/16 20:48 ; Admin Dose 1 MG; Start 07/29/16 at 06:30 Ethambutol HCl (Myambutol) 900 mg TuThSa@20 PO Last administered on 07/31/16 21:07; Admin Dose 900 MG; Start 07/31/16 at 20:00 Pyrazinamide (Pyrazinamide) 1,250 mg TuThSa@20 PO ; Start 07/31/16 at 20:00 Hydromorphone HCl (Dilaudid) 1 mg Q2H PRN IV pain Last administered on 02:19; Admin Dose 1 MG; Start 08/02/16 at 19:00 HELEN SHARP Aug 03, 2016 12:05
[2016-08-03] MEDS: HYDROCODONE/APAP (5/325) TAB PO PRN (12:30)
--- NOTE | 2016-08-03 14:39 | CONS ---
Date/Time of Note Date/Time of Note DATE: 08/03/16 TIME: 14:38 Assessment/Plan Assessment/Plan Additional Assessment/Plan CAD with PTCA and stent placement to left main and left anterior descending in 2014. History of coronary artery bypass graft surgery. End-stage renal disease on hemodialysis. Tuberculosis, on therapy. Hypertension Diabetes mellitus. Dyslipidemia. Empyema/cavitary lesions by CT S/P VATS and Pleurodesis Anemia Ruled out of ACS Clinically not in heart failure Continue Metoprolol and Benazepril Continue HD as scheduled Continue anti TB regimen as scheduled Continue Insulin Continue Lipitor Consultation Date/Type/Reason Admit Date/Time Jul 24, 2016 at 12:53 Initial Consult Date 07/25/16 Type of Consultation: Infectious Disease Referring Provider: EVA COX MD Exam/Review of Systems Vital Signs Vitals Vital Signs Date Time Temp Pulse Resp B/P Pulse Ox O2 Delivery O2 Flow Rate FiO2 08/03/16 12:02 69 08/03/16 11:30 97.9 20 159/71 95 08/02/16 05:54 21 08/01/16 19:54 Room Air Intake and Output 08/02/16 08/02/16 08/03/16 15:00 23:00 07:00 Intake Total 900 ml 200 ml Output Total 500 ml Balance 400 ml 200 ml Exam Head: atraumatic, normocephalic Neck: non-tender, supple Respiratory: clear to auscultation Cardiovascular: regular rate and rhythm Gastrointestinal: nl liver, spleen, non-tender, soft Extremities: normal pulses Results Result Diagram: 08/03/16 0738 08/03/16 0733 Results 24 hrs Laboratory Tests Test 08/02/16 17:46 08/02/16 20:59 08/03/16 07:33 08/03/16 07:38 Bedside Glucose 131 134 Prothrombin Time 13.5 Prothrombin Time Ratio 1.1 INR International Normalized Ratio 1.03 Activated Partial Thromboplast Time 38.3 H Sodium Level 136 Potassium Level 4.5 Chloride Level 103 Carbon Dioxide Level 24 Anion Gap 14 Blood Urea Nitrogen 66 H Creatinine 7.11 H Glucose Level 105 Calcium Level 8.8 White Blood Count 11.0 H Red Blood Count 2.75 #L Hemoglobin 8.6 L Hematocrit 26.5 L Mean Corpuscular Volume 96.4 Mean Corpuscular Hemoglobin 31.3 Mean Corpuscular Hemoglobin Concent 32.5 Red Cell Distribution Width 16.3 H Platelet Count 140 # Mean Platelet Volume 10.4 Neutrophils % 82.3 H Lymphocytes % 5.9 L Monocytes % 10.5 Eosinophils % 0.5 Basophils % 0.4 Nucleated Red Blood Cells % 0.0 Neutrophils # 9.0 H Lymphocytes # 0.7 L Monocytes # 1.2 H Eosinophils # 0.1 Basophils # 0.0 Nucleated Red Blood Cells # 0.0 Test 08/03/16 08:31 08/03/16 12:24 Bedside Glucose 115 107 Medications Medications Current Medications Aspirin (Halfprin) 81 mg DAILY PO Last administered on 07/26/16 08:39; Admin Dose 81 MG; Start 07/25/16 at 09:00; Status Future Hold Atorvastatin Calcium (Lipitor) 10 mg QHS PO Last administered on 08/02/16 21:02 ; Admin Dose 10 MG; Start 07/24/16 at 21:00 Benazepril HCl (Lotensin) 40 mg BID PO Last administered on 08/03/16 08:54; Admin Dose 40 MG; Start 07/24/16 at 21:00 Cholecalciferol (Vitamin D) 400 units DAILY PO Last administered on 08/03/16 08 :57; Admin Dose 400 UNITS; Start 07/25/16 at 09:00 Famotidine (Pepcid) 20 mg DAILY PO Last administered on 08/03/16 08:58; Admin Dose 20 MG; Start 07/25/16 at 09:00 Ferrous Sulfate (Ferrous Sulfate (Ec)) 325 mg BID PO Last administered on 08:56; Admin Dose 325 MG; Start 07/24/16 at 21:00 Acetaminophen/ Hydrocodone Bitart ([place] (5/325)) 1 tab Q4H PRN PO PAIN Last administered on 08/03/16 12:30; Admin Dose 1 TAB; Start 07/24/16 at 17:00 Insulin Glargine (Lantus) 6 unit DAILY@20 SC Last administered on 08/02/16 21: 01; Admin Dose 6 UNIT; Start 07/24/16 at 20:00 Isoniazid (Isoniazid) 300 mg DAILY PO Last administered on 08/03/16 08:55; Admin Dose 300 MG; Start 07/24/16 at 15:30 Nifedipine (Procardia Xl) 60 mg BID PO Last administered on 08/03/16 08:56; Admin Dose 60 MG; Start 07/24/16 at 21:00 Pyridoxine HCl (Vitamin B6) 50 mg DAILY PO Last administered on 08/03/16 08:56 ; Admin Dose 50 MG; Start 07/25/16 at 09:00 Rifampin (Rifampin) 600 mg DAILY PO Last administered on 08/03/16 08:57; Admin Dose 600 MG; Start 07/25/16 at 09:00 Miscellaneous Information 1 ea NOTE XX ; Start 07/24/16 at 16:00 Glucose (Glutose) 15 gm Q15M PRN PO DECREASED GLUCOSE; Start 07/24/16 at 16:00 Glucose (Glutose) 22.5 gm Q15M PRN PO DECREASED GLUCOSE; Start 07/24/16 at 16: 00 Dextrose (D50w Syringe) 25 ml Q15M PRN IV DECREASED GLUCOSE; Start 07/24/16 at 16:00 Dextrose (D50w Syringe) 50 ml Q15M PRN IV DECREASED GLUCOSE; Start 07/24/16 at 16:00 Glucagon (Glucagen) 1 mg Q15M PRN IM DECREASED GLUCOSE; Start 07/24/16 at 16:00 Glucose (Glutose) 15 gm Q15M PRN BUCCAL DECREASED GLUCOSE; Start 07/24/16 at 16 :00 Ondansetron HCl (Zofran Inj) 4 mg Q4 PRN IV nausea Last administered on 12:25; Admin Dose 4 MG; Start 07/24/16 at 17:00 Metoclopramide HCl (Reglan) 5 mg Q4H PRN IV NAUSEA Last administered on 10:46; Admin Dose 5 MG; Start 07/24/16 at 22:30 Diagnostic Test (Pha) (Accu-Chek) 1 ea 02 XX Last administered on 07/28/16 02: 54; Admin Dose 1 EA; Start 07/26/16 at 12:00 Metoprolol Tartrate (Lopressor) 100 mg BID GTB Last administered on 08/03/16 08 :56; Admin Dose 100 MG; Start 07/26/16 at 13:30 Clonidine HCl (Catapres-Tts 2 Patch) 1 patch Q7D TRANSDERM Last administered on 08/03/16 06:32; Admin Dose 1 PATCH; Start 07/27/16 at 07:00 Pantoprazole (Protonix Tab) 40 mg DAILY@06 PO Last administered on 08/03/16 06: 32; Admin Dose 40 MG; Start 07/28/16 at 06:00 Hydralazine HCl (Apresoline) 20 mg Q4 PRN IV ELEVATED BLOOD PRESSURE Last administered on 07/30/16 02:15; Admin Dose 20 MG; Start 07/28/16 at 02:00 Doxazosin Mesylate (Cardura) 2 mg HS PO Last administered on 08/02/16 21:05; Admin Dose 2 MG; Start 07/28/16 at 21:00 Polyethylene Glycol (Miralax) 17 gm DAILY PRN GTB CONSTIPATION Last administered on 07/28/16 20:22; Admin Dose 17 GM; Start 07/28/16 at 19:30 Lorazepam (Ativan) 1 mg Q4H PRN IV anxiety Last administered on 07/30/16 20:48 ; Admin Dose 1 MG; Start 07/29/16 at 06:30 Ethambutol HCl (Myambutol) 900 mg TuThSa@20 PO Last administered on 07/31/16 21:07; Admin Dose 900 MG; Start 07/31/16 at 20:00 Pyrazinamide (Pyrazinamide) 1,250 mg TuThSa@20 PO ; Start 07/31/16 at 20:00 Hydromorphone HCl (Dilaudid) 1 mg Q2H PRN IV pain Last administered on 02:19; Admin Dose 1 MG; Start 08/02/16 at 19:00 PHILL PAGE M.D. Aug 03, 2016 14:39
--- NOTE | 2016-08-03 15:12 | EN ---
Date/Time of Note Date/Time of Note DATE: 08/03/16 TIME: 15:11 Event Note Medicine Medicine Event Note Patient Name: Lamberto Singh Unit Number: [id number] Date of : 1955 Patient Status: Discharged Inpatient Attending Doctor: Eva Price MD Date/Time of Note Date/Time of Note Date/Time of Note DATE: 08/02/16 TIME: 16:13 Follow up Consult SOAP Consult Date/Type/Reason Admit Date/Time Jun 13, 2016 at 14:48 Type of Consultation: Pulm Ordering Provider: EVA PRICE MD Subjective Some hemoptysis noted today--quantity appears minimal Objective Exam HEENT: Neck supple; no JVD; no LAD CVS: RRR, S1 and S2 CHEST: Decreased BS right base ABD: Soft, NT, + BS EXT: No c/c/e Assessment/Plan Additional Assessment/Plan IMP: 1. Right TB empyema with bleeding into pleural space and associated BPH--> leading to hemoptysis RECS: 1. Quantify all hemoptysis 2. If more than 100 ml/hr transfer to ICU and place right side down and intubate left mainstem 3. He will need VATS repair JAMMIE. Copies To: Copies To: SONYA ODEN MD Aug 03, 2016 15:12
--- NOTE | 2016-08-03 15:14 | CONS ---
Date/Time of Note Date/Time of Note DATE: 08/03/16 TIME: 15:12 Consult Date/Type/Reason Admit Date/Time Jul 24, 2016 at 12:53 Initial Consult Date 07/25/16 Type of Consultation: Pulm Ordering Provider: EVA COX MD Subjective No significant hemoptysis over night. Objective Vital Signs Date Time Temp Pulse Resp B/P Pulse Ox O2 Delivery O2 Flow Rate FiO2 08/03/16 12:02 69 08/03/16 11:30 97.9 20 159/71 95 08/02/16 05:54 21 08/01/16 19:54 Room Air Intake and Output 08/02/16 08/02/16 08/03/16 15:00 23:00 07:00 Intake Total 900 ml 200 ml Output Total 500 ml Balance 400 ml 200 ml Exam HEENT: Neck supple; no JVD; no LAD CVS: RRR, S1 and S2 CHEST: Decreased BS right base ABD: Soft, NT, + BS EXT: No c/c/e Results/Medications Result Diagram: 08/03/16 0738 08/03/16 0733 Results 24 hrs Laboratory Tests Test 08/02/16 17:46 08/02/16 20:59 08/03/16 07:33 08/03/16 07:38 Bedside Glucose 131 134 Prothrombin Time 13.5 Prothrombin Time Ratio 1.1 INR International Normalized Ratio 1.03 Activated Partial Thromboplast Time 38.3 H Sodium Level 136 Potassium Level 4.5 Chloride Level 103 Carbon Dioxide Level 24 Anion Gap 14 Blood Urea Nitrogen 66 H Creatinine 7.11 H Glucose Level 105 Calcium Level 8.8 White Blood Count 11.0 H Red Blood Count 2.75 #L Hemoglobin 8.6 L Hematocrit 26.5 L Mean Corpuscular Volume 96.4 Mean Corpuscular Hemoglobin 31.3 Mean Corpuscular Hemoglobin Concent 32.5 Red Cell Distribution Width 16.3 H Platelet Count 140 # Mean Platelet Volume 10.4 Neutrophils % 82.3 H Lymphocytes % 5.9 L Monocytes % 10.5 Eosinophils % 0.5 Basophils % 0.4 Nucleated Red Blood Cells % 0.0 Neutrophils # 9.0 H Lymphocytes # 0.7 L Monocytes # 1.2 H Eosinophils # 0.1 Basophils # 0.0 Nucleated Red Blood Cells # 0.0 Test 08/03/16 08:31 08/03/16 12:24 Bedside Glucose 115 107 Medications Current Medications Aspirin (Halfprin) 81 mg DAILY PO Last administered on 07/26/16 08:39; Admin Dose 81 MG; Start 07/25/16 at 09:00; Status Future Hold Atorvastatin Calcium (Lipitor) 10 mg QHS PO Last administered on 08/02/16 21:02 ; Admin Dose 10 MG; Start 07/24/16 at 21:00 Benazepril HCl (Lotensin) 40 mg BID PO Last administered on 08/03/16 08:54; Admin Dose 40 MG; Start 07/24/16 at 21:00 Cholecalciferol (Vitamin D) 400 units DAILY PO Last administered on 08/03/16 08 :57; Admin Dose 400 UNITS; Start 07/25/16 at 09:00 Famotidine (Pepcid) 20 mg DAILY PO Last administered on 08/03/16 08:58; Admin Dose 20 MG; Start 07/25/16 at 09:00 Ferrous Sulfate (Ferrous Sulfate (Ec)) 325 mg BID PO Last administered on 08:56; Admin Dose 325 MG; Start 07/24/16 at 21:00 Acetaminophen/ Hydrocodone Bitart ([place] (5/325)) 1 tab Q4H PRN PO PAIN Last administered on 08/03/16 12:30; Admin Dose 1 TAB; Start 07/24/16 at 17:00 Insulin Glargine (Lantus) 6 unit DAILY@20 SC Last administered on 08/02/16 21: 01; Admin Dose 6 UNIT; Start 07/24/16 at 20:00 Isoniazid (Isoniazid) 300 mg DAILY PO Last administered on 08/03/16 08:55; Admin Dose 300 MG; Start 07/24/16 at 15:30 Nifedipine (Procardia Xl) 60 mg BID PO Last administered on 08/03/16 08:56; Admin Dose 60 MG; Start 07/24/16 at 21:00 Pyridoxine HCl (Vitamin B6) 50 mg DAILY PO Last administered on 08/03/16 08:56 ; Admin Dose 50 MG; Start 07/25/16 at 09:00 Rifampin (Rifampin) 600 mg DAILY PO Last administered on 08/03/16 08:57; Admin Dose 600 MG; Start 07/25/16 at 09:00 Miscellaneous Information 1 ea NOTE XX ; Start 07/24/16 at 16:00 Glucose (Glutose) 15 gm Q15M PRN PO DECREASED GLUCOSE; Start 07/24/16 at 16:00 Glucose (Glutose) 22.5 gm Q15M PRN PO DECREASED GLUCOSE; Start 07/24/16 at 16: 00 Dextrose (D50w Syringe) 25 ml Q15M PRN IV DECREASED GLUCOSE; Start 07/24/16 at 16:00 Dextrose (D50w Syringe) 50 ml Q15M PRN IV DECREASED GLUCOSE; Start 07/24/16 at 16:00 Glucagon (Glucagen) 1 mg Q15M PRN IM DECREASED GLUCOSE; Start 07/24/16 at 16:00 Glucose (Glutose) 15 gm Q15M PRN BUCCAL DECREASED GLUCOSE; Start 07/24/16 at 16 :00 Ondansetron HCl (Zofran Inj) 4 mg Q4 PRN IV nausea Last administered on 12:25; Admin Dose 4 MG; Start 07/24/16 at 17:00 Metoclopramide HCl (Reglan) 5 mg Q4H PRN IV NAUSEA Last administered on 10:46; Admin Dose 5 MG; Start 07/24/16 at 22:30 Diagnostic Test (Pha) (Accu-Chek) 1 ea 02 XX Last administered on 07/28/16 02: 54; Admin Dose 1 EA; Start 07/26/16 at 12:00 Metoprolol Tartrate (Lopressor) 100 mg BID GTB Last administered on 08/03/16 08 :56; Admin Dose 100 MG; Start 07/26/16 at 13:30 Clonidine HCl (Catapres-Tts 2 Patch) 1 patch Q7D TRANSDERM Last administered on 08/03/16 06:32; Admin Dose 1 PATCH; Start 07/27/16 at 07:00 Pantoprazole (Protonix Tab) 40 mg DAILY@06 PO Last administered on 08/03/16 06: 32; Admin Dose 40 MG; Start 07/28/16 at 06:00 Hydralazine HCl (Apresoline) 20 mg Q4 PRN IV ELEVATED BLOOD PRESSURE Last administered on 07/30/16 02:15; Admin Dose 20 MG; Start 07/28/16 at 02:00 Doxazosin Mesylate (Cardura) 2 mg HS PO Last administered on 08/02/16 21:05; Admin Dose 2 MG; Start 07/28/16 at 21:00 Polyethylene Glycol (Miralax) 17 gm DAILY PRN GTB CONSTIPATION Last administered on 07/28/16 20:22; Admin Dose 17 GM; Start 07/28/16 at 19:30 Lorazepam (Ativan) 1 mg Q4H PRN IV anxiety Last administered on 07/30/16 20:48 ; Admin Dose 1 MG; Start 07/29/16 at 06:30 Ethambutol HCl (Myambutol) 900 mg TuThSa@20 PO Last administered on 07/31/16 21:07; Admin Dose 900 MG; Start 07/31/16 at 20:00 Pyrazinamide (Pyrazinamide) 1,250 mg TuThSa@20 PO ; Start 07/31/16 at 20:00 Hydromorphone HCl (Dilaudid) 1 mg Q2H PRN IV pain Last administered on 02:19; Admin Dose 1 MG; Start 08/02/16 at 19:00 Assessment/Plan Additional Assessment/Plan IMP: 1. Right TB empyema with bleeding into pleural space and associated BPH--> leading to hemoptysis RECS: 1. Quantify all hemoptysis 2. If more than 100 ml/hr transfer to ICU and place right side down and intubate left mainstem 3. VATS tomorrow SONYA ODEN MD Aug 03, 2016 15:14
--- NOTE | 2016-08-03 17:50 | CONS ---
Date/Time of Note Date/Time of Note DATE: 08/03/16 TIME: 17:49 Assessment/Plan Assessment/Plan Chief Complaint/Hosp Course IMPRESSION: 1. Recurrent pleural effusions. 2. Lung infiltrate./cavitary lesion 3. chronic lung disease. 4. Hypertension. 5. Diabetes mellitus. 6. End-stage renal disease. 7. anemia. 8. cad. 9. Leukocytosis.better 10. ashd 11. s/p vats. 12. The patient on anti-tuberculosis treatment. 13. 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 PLAN HD 3x wk per pt per id and surgery Problems: Consultation Date/Type/Reason Admit Date/Time Jul 24, 2016 at 12:53 Initial Consult Date 07/25/16 Type of Consultation: renal Referring Provider: EVA COX MD 24 HR Interval Summary Constitutional: requiring O2 Exam/Review of Systems Vital Signs Vitals Vital Signs Date Time Temp Pulse Resp B/P Pulse Ox O2 Delivery O2 Flow Rate FiO2 08/03/16 16:02 98.4 70 20 139/61 96 08/02/16 05:54 21 08/01/16 19:54 Room Air Intake and Output 08/02/16 08/02/16 08/03/16 14:59 22:59 06:59 Intake Total 900 ml 200 ml Output Total 500 ml Balance 400 ml 200 ml Exam Respiratory: diminished breath sounds Cardiovascular: regular rate and rhythm Gastrointestinal: bowel sounds (+), soft Extremities: No edema Results Result Diagram: 08/03/16 0738 08/03/16 0733 Results 24 hrs Laboratory Tests Test 08/02/16 20:59 08/03/16 07:33 08/03/16 07:38 08/03/16 08:31 Bedside Glucose 134 115 Prothrombin Time 13.5 Prothrombin Time Ratio 1.1 INR International Normalized Ratio 1.03 Activated Partial Thromboplast Time 38.3 H Sodium Level 136 Potassium Level 4.5 Chloride Level 103 Carbon Dioxide Level 24 Anion Gap 14 Blood Urea Nitrogen 66 H Creatinine 7.11 H Glucose Level 105 Calcium Level 8.8 White Blood Count 11.0 H Red Blood Count 2.75 #L Hemoglobin 8.6 L Hematocrit 26.5 L Mean Corpuscular Volume 96.4 Mean Corpuscular Hemoglobin 31.3 Mean Corpuscular Hemoglobin Concent 32.5 Red Cell Distribution Width 16.3 H Platelet Count 140 # Mean Platelet Volume 10.4 Neutrophils % 82.3 H Lymphocytes % 5.9 L Monocytes % 10.5 Eosinophils % 0.5 Basophils % 0.4 Nucleated Red Blood Cells % 0.0 Neutrophils # 9.0 H Lymphocytes # 0.7 L Monocytes # 1.2 H Eosinophils # 0.1 Basophils # 0.0 Nucleated Red Blood Cells # 0.0 Test 08/03/16 12:24 Bedside Glucose 107 Medications Medications Current Medications Aspirin (Halfprin) 81 mg DAILY PO Last administered on 07/26/16 08:39; Admin Dose 81 MG; Start 07/25/16 at 09:00; Status Future Hold Atorvastatin Calcium (Lipitor) 10 mg QHS PO Last administered on 08/02/16 21:02 ; Admin Dose 10 MG; Start 07/24/16 at 21:00 Benazepril HCl (Lotensin) 40 mg BID PO Last administered on 08/03/16 08:54; Admin Dose 40 MG; Start 07/24/16 at 21:00 Cholecalciferol (Vitamin D) 400 units DAILY PO Last administered on 08/03/16 08 :57; Admin Dose 400 UNITS; Start 07/25/16 at 09:00 Famotidine (Pepcid) 20 mg DAILY PO Last administered on 08/03/16 08:58; Admin Dose 20 MG; Start 07/25/16 at 09:00 Ferrous Sulfate (Ferrous Sulfate (Ec)) 325 mg BID PO Last administered on 08:56; Admin Dose 325 MG; Start 07/24/16 at 21:00 Acetaminophen/ Hydrocodone Bitart ([place] (5/325)) 1 tab Q4H PRN PO PAIN Last administered on 08/03/16 12:30; Admin Dose 1 TAB; Start 07/24/16 at 17:00 Insulin Glargine (Lantus) 6 unit DAILY@20 SC Last administered on 08/02/16 21: 01; Admin Dose 6 UNIT; Start 07/24/16 at 20:00 Isoniazid (Isoniazid) 300 mg DAILY PO Last administered on 08/03/16 08:55; Admin Dose 300 MG; Start 07/24/16 at 15:30 Nifedipine (Procardia Xl) 60 mg BID PO Last administered on 08/03/16 08:56; Admin Dose 60 MG; Start 07/24/16 at 21:00 Pyridoxine HCl (Vitamin B6) 50 mg DAILY PO Last administered on 08/03/16 08:56 ; Admin Dose 50 MG; Start 07/25/16 at 09:00 Rifampin (Rifampin) 600 mg DAILY PO Last administered on 08/03/16 08:57; Admin Dose 600 MG; Start 07/25/16 at 09:00 Miscellaneous Information 1 ea NOTE XX ; Start 07/24/16 at 16:00 Glucose (Glutose) 15 gm Q15M PRN PO DECREASED GLUCOSE; Start 07/24/16 at 16:00 Glucose (Glutose) 22.5 gm Q15M PRN PO DECREASED GLUCOSE; Start 07/24/16 at 16: 00 Dextrose (D50w Syringe) 25 ml Q15M PRN IV DECREASED GLUCOSE; Start 07/24/16 at 16:00 Dextrose (D50w Syringe) 50 ml Q15M PRN IV DECREASED GLUCOSE; Start 07/24/16 at 16:00 Glucagon (Glucagen) 1 mg Q15M PRN IM DECREASED GLUCOSE; Start 07/24/16 at 16:00 Glucose (Glutose) 15 gm Q15M PRN BUCCAL DECREASED GLUCOSE; Start 07/24/16 at 16 :00 Ondansetron HCl (Zofran Inj) 4 mg Q4 PRN IV nausea Last administered on 12:25; Admin Dose 4 MG; Start 07/24/16 at 17:00 Metoclopramide HCl (Reglan) 5 mg Q4H PRN IV NAUSEA Last administered on 10:46; Admin Dose 5 MG; Start 07/24/16 at 22:30 Diagnostic Test (Pha) (Accu-Chek) 1 ea 02 XX Last administered on 07/28/16 02: 54; Admin Dose 1 EA; Start 07/26/16 at 12:00 Metoprolol Tartrate (Lopressor) 100 mg BID GTB Last administered on 08/03/16 08 :56; Admin Dose 100 MG; Start 07/26/16 at 13:30 Clonidine HCl (Catapres-Tts 2 Patch) 1 patch Q7D TRANSDERM Last administered on 08/03/16 06:32; Admin Dose 1 PATCH; Start 07/27/16 at 07:00 Pantoprazole (Protonix Tab) 40 mg DAILY@06 PO Last administered on 08/03/16 06: 32; Admin Dose 40 MG; Start 07/28/16 at 06:00 Hydralazine HCl (Apresoline) 20 mg Q4 PRN IV ELEVATED BLOOD PRESSURE Last administered on 07/30/16 02:15; Admin Dose 20 MG; Start 07/28/16 at 02:00 Doxazosin Mesylate (Cardura) 2 mg HS PO Last administered on 08/02/16 21:05; Admin Dose 2 MG; Start 07/28/16 at 21:00 Polyethylene Glycol (Miralax) 17 gm DAILY PRN GTB CONSTIPATION Last administered on 07/28/16 20:22; Admin Dose 17 GM; Start 07/28/16 at 19:30 Lorazepam (Ativan) 1 mg Q4H PRN IV anxiety Last administered on 07/30/16 20:48 ; Admin Dose 1 MG; Start 07/29/16 at 06:30 Ethambutol HCl (Myambutol) 900 mg TuThSa@20 PO Last administered on 07/31/16 21:07; Admin Dose 900 MG; Start 07/31/16 at 20:00 Pyrazinamide (Pyrazinamide) 1,250 mg TuThSa@20 PO ; Start 07/31/16 at 20:00 Hydromorphone HCl (Dilaudid) 1 mg Q2H PRN IV pain Last administered on 02:19; Admin Dose 1 MG; Start 08/02/16 at 19:00 PAOLA MOODY MD Aug 03, 2016 17:50
--- NOTE | 2016-08-03 19:55 | CONS ---
NORI JORGENSEN [employer]FT [employer]UITER 08/03/161954: Date/Time of Note Date/Time of Note DATE: 08/03/16 TIME: 19:54 Assessment/Plan Assessment/Plan Chief Complaint/Hosp Course assessment/impression - possible tubercular empyema: R sided complex loculated air containing empyemas , visceral and parietal pleural calcifications. - a 35 mm lesion with possible cavitation in the anterior inferior RUL, possible recurrent tuberculosis - high risk for TB: history (originally from [facility], spends one month of each year in [facility], last in 09/2015), medical history (DM, ESRD), laboratory findings (positive quantiferon TB gold, granulomatous inflammation with focal necrosis on Bx of pleura) - AFB smear was negative x3, also M. tuberculosis DNA probe to the 1st sputum sample was undetectable in early 07/2016 - s/p R VATS, total pulmonary decortication, R pleurodesis on 06/30/2016. Biopsy was negative for fungal stain and AFB stain (micro lab and pathology department), as well as malignancy. It showed granulomatous inflammation with focal necrosis and extensive hyalinization. Chest tube was removed - h/o recurrent pleural effusion requiring thoracentesis approximately once a year, last performed in 04/2016 prior to this admission - positive quantiferon TB gold status of unknown duration. Per Pt, his past PPD was done in 2013, and was negative. - Our infection unit control worker Lindsey contacted the TB control unit at [facility]: we learned on 07/11/2016 that Pt has h/o mycobacterial tuberculosis infection in 1997 and was treated between 1997 and 1998. - DM - Hgb A1c 5.2% 06/17/16 - ESRD on HD - CAD s/p CABG in 2010 and cardiac stent in 2013 - HIV screen negative in 07/2016 tested at [facility] - nausea, Pt has been taking TB meds according to his RN recommendations - F/u 3rd AFB smear and culture; MTB DNA probe added to the 1st sample by Dr. Verduzco (Yuriy at micro lab) - continue renally dosed RIPE plus vitamin B6 supplement (07/12/2016-) - check LFTs' weekly - Mgmt d/w pt's - Above d/w Dr. Verduzco Problems: Consultation Date/Type/Reason Admit Date/Time Jul 24, 2016 at 12:53 Initial Consult Date 07/25/16 Type of Consultation: Infectious Disease Referring Provider: EVA COX MD 24 HR Interval Summary Free Text/Dictation AFB negative x2; awaiting VATS. Hemoptysis has significantly decreased today; appetite improved per d/w pt's . Pt sleeping quietly. Exam/Review of Systems Vital Signs Vitals Vital Signs Date Time Temp Pulse Resp B/P Pulse Ox O2 Delivery O2 Flow Rate FiO2 08/03/16 16:02 98.4 70 20 139/61 96 08/02/16 05:54 21 08/01/16 19:54 Room Air Intake and Output 08/02/16 08/02/16 08/03/16 15:00 23:00 07:00 Intake Total 900 ml 200 ml Output Total 500 ml Balance 400 ml 200 ml Exam Constitutional: frail, other (thin, asleep), well developed Head: atraumatic, normocephalic Neck: supple Respiratory: diminished breath sounds, normal air movement Cardiovascular: regular rate and rhythm Gastrointestinal: non-tender, soft Musculoskeletal: nl extremities to inspection Extremities: normal pulses Neurological: sleeping Skin: nl turgor, No rash or lesions Results Result Diagram: 08/03/16 0738 08/03/16 0733 Results 24 hrs Laboratory Tests Test 08/02/16 20:59 08/03/16 07:33 08/03/16 07:38 08/03/16 08:31 Bedside Glucose 134 115 Prothrombin Time 13.5 Prothrombin Time Ratio 1.1 INR International Normalized Ratio 1.03 Activated Partial Thromboplast Time 38.3 H Sodium Level 136 Potassium Level 4.5 Chloride Level 103 Carbon Dioxide Level 24 Anion Gap 14 Blood Urea Nitrogen 66 H Creatinine 7.11 H Glucose Level 105 Calcium Level 8.8 White Blood Count 11.0 H Red Blood Count 2.75 #L Hemoglobin 8.6 L Hematocrit 26.5 L Mean Corpuscular Volume 96.4 Mean Corpuscular Hemoglobin 31.3 Mean Corpuscular Hemoglobin Concent 32.5 Red Cell Distribution Width 16.3 H Platelet Count 140 # Mean Platelet Volume 10.4 Neutrophils % 82.3 H Lymphocytes % 5.9 L Monocytes % 10.5 Eosinophils % 0.5 Basophils % 0.4 Nucleated Red Blood Cells % 0.0 Neutrophils # 9.0 H Lymphocytes # 0.7 L Monocytes # 1.2 H Eosinophils # 0.1 Basophils # 0.0 Nucleated Red Blood Cells # 0.0 Test 08/03/16 12:24 08/03/16 18:00 Bedside Glucose 107 188 Medications Medications Current Medications Aspirin (Halfprin) 81 mg DAILY PO Last administered on 07/26/16 08:39; Admin Dose 81 MG; Start 07/25/16 at 09:00; Status Future Hold Atorvastatin Calcium (Lipitor) 10 mg QHS PO Last administered on 08/02/16 21:02 ; Admin Dose 10 MG; Start 07/24/16 at 21:00 Benazepril HCl (Lotensin) 40 mg BID PO Last administered on 08/03/16 08:54; Admin Dose 40 MG; Start 07/24/16 at 21:00 Cholecalciferol (Vitamin D) 400 units DAILY PO Last administered on 08/03/16 08 :57; Admin Dose 400 UNITS; Start 07/25/16 at 09:00 Famotidine (Pepcid) 20 mg DAILY PO Last administered on 08/03/16 08:58; Admin Dose 20 MG; Start 07/25/16 at 09:00 Ferrous Sulfate (Ferrous Sulfate (Ec)) 325 mg BID PO Last administered on 08:56; Admin Dose 325 MG; Start 07/24/16 at 21:00 Acetaminophen/ Hydrocodone Bitart ([place] (5/325)) 1 tab Q4H PRN PO PAIN Last administered on 08/03/16 12:30; Admin Dose 1 TAB; Start 07/24/16 at 17:00 Insulin Glargine (Lantus) 6 unit DAILY@20 SC Last administered on 08/02/16 21: 01; Admin Dose 6 UNIT; Start 07/24/16 at 20:00 Isoniazid (Isoniazid) 300 mg DAILY PO Last administered on 08/03/16 08:55; Admin Dose 300 MG; Start 07/24/16 at 15:30 Nifedipine (Procardia Xl) 60 mg BID PO Last administered on 08/03/16 08:56; Admin Dose 60 MG; Start 07/24/16 at 21:00 Pyridoxine HCl (Vitamin B6) 50 mg DAILY PO Last administered on 08/03/16 08:56 ; Admin Dose 50 MG; Start 07/25/16 at 09:00 Rifampin (Rifampin) 600 mg DAILY PO Last administered on 08/03/16 08:57; Admin Dose 600 MG; Start 07/25/16 at 09:00 Miscellaneous Information 1 ea NOTE XX ; Start 07/24/16 at 16:00 Glucose (Glutose) 15 gm Q15M PRN PO DECREASED GLUCOSE; Start 07/24/16 at 16:00 Glucose (Glutose) 22.5 gm Q15M PRN PO DECREASED GLUCOSE; Start 07/24/16 at 16: 00 Dextrose (D50w Syringe) 25 ml Q15M PRN IV DECREASED GLUCOSE; Start 07/24/16 at 16:00 Dextrose (D50w Syringe) 50 ml Q15M PRN IV DECREASED GLUCOSE; Start 07/24/16 at 16:00 Glucagon (Glucagen) 1 mg Q15M PRN IM DECREASED GLUCOSE; Start 07/24/16 at 16:00 Glucose (Glutose) 15 gm Q15M PRN BUCCAL DECREASED GLUCOSE; Start 07/24/16 at 16 :00 Ondansetron HCl (Zofran Inj) 4 mg Q4 PRN IV nausea Last administered on 12:25; Admin Dose 4 MG; Start 07/24/16 at 17:00 Metoclopramide HCl (Reglan) 5 mg Q4H PRN IV NAUSEA Last administered on 10:46; Admin Dose 5 MG; Start 07/24/16 at 22:30 Diagnostic Test (Pha) (Accu-Chek) 1 ea 02 XX Last administered on 07/28/16 02: 54; Admin Dose 1 EA; Start 07/26/16 at 12:00 Metoprolol Tartrate (Lopressor) 100 mg BID GTB Last administered on 08/03/16 08 :56; Admin Dose 100 MG; Start 07/26/16 at 13:30 Clonidine HCl (Catapres-Tts 2 Patch) 1 patch Q7D TRANSDERM Last administered on 08/03/16 06:32; Admin Dose 1 PATCH; Start 07/27/16 at 07:00 Pantoprazole (Protonix Tab) 40 mg DAILY@06 PO Last administered on 08/03/16 06: 32; Admin Dose 40 MG; Start 07/28/16 at 06:00 Hydralazine HCl (Apresoline) 20 mg Q4 PRN IV ELEVATED BLOOD PRESSURE Last administered on 07/30/16 02:15; Admin Dose 20 MG; Start 07/28/16 at 02:00 Doxazosin Mesylate (Cardura) 2 mg HS PO Last administered on 08/02/16 21:05; Admin Dose 2 MG; Start 07/28/16 at 21:00 Polyethylene Glycol (Miralax) 17 gm DAILY PRN GTB CONSTIPATION Last administered on 07/28/16 20:22; Admin Dose 17 GM; Start 07/28/16 at 19:30 Lorazepam (Ativan) 1 mg Q4H PRN IV anxiety Last administered on 07/30/16 20:48 ; Admin Dose 1 MG; Start 07/29/16 at 06:30 Ethambutol HCl (Myambutol) 900 mg TuThSa@20 PO Last administered on 07/31/16 21:07; Admin Dose 900 MG; Start 07/31/16 at 20:00 Pyrazinamide (Pyrazinamide) 1,250 mg TuThSa@20 PO ; Start 07/31/16 at 20:00 Hydromorphone HCl (Dilaudid) 1 mg Q2H PRN IV pain Last administered on 02:19; Admin Dose 1 MG; Start 08/02/16 at 19:00 YUMIKO VERDUZCO M.D. 08/04/16 1907: Assessment/Plan Assessment/Plan Chief Complaint/Hosp Course Dax attestation: I discussed the management with ISABEL Jorgensen and agree with above. Problems: Exam/Review of Systems Results Result Diagram: 08/03/16 0738 08/03/16 0733 NORI JORGENSEN NP Aug 03, 2016 19:55 YUMIKO VERDUZCO M.D. Aug 04, 2016 19:07
[2016-08-03] MEDS: ATORVASTATIN 10 MG TAB PO SCH (21:14)
[2016-08-03] MEDS: DOXAZOSIN 2 MG TAB PO SCH (21:15)
[2016-08-03] MEDS: INSULIN GLARGINE [LANtus] 3 ML PEN SC SCH (21:17)
[2016-08-04] VITALS (40 sets, daily range): BP systolic 96–204; BP diastolic 38–95; PULSE 15–84; RESP 0–23
[2016-08-04] MEDS: ACCUCHECK 2 AM XX SCH (02:00)
[2016-08-04] MEDS: ONDANSETRON 4 MG INJ IV PRN ×2 (02:35→10:53)
[2016-08-04] MEDS: PANTOPRAZOLE (EC) 40 MG TAB PO SCH (06:05)
[2016-08-04 06:34] LABS: ADD SCAN DIFF NO
[2016-08-04 06:42] LABS: BASOPHILS % 0.4 % (0.0-2.0); EOSINOPHILS # 0.1 10^3/ul (0.0-0.5); EOSINOPHILS % 1.4 % (0.0-7.0); HEMOGLOBIN 8.3 g/dl (14.0-18.0); LYMPHOCYTES # 0.7 10^3/ul (0.8-2.9); LYMPHOCYTES % 7.4 % (15.0-51.0); MEAN CORPUSCULAR HEMOGLOBIN 31.7 pg (29.0-33.0); MEAN CORPUSCULAR HGB CONC 33.2 g/dl (32.0-37.0); MEAN CORPUSCULAR VOLUME 95.4 fl (82.0-101.0); MEAN PLATELET VOLUME 10.5 fl (7.4-10.4); MONOCYTE # 1.1 10^3/ul (0.3-0.9); MONOCYTES % 11.6 % (0.0-11.0); NEUTROPHIL # 7.5 10^3/ul (1.6-7.5); NEUTROPHILS % 78.8 % (39.0-77.0); PLATELET COUNT 144 10^3/UL (140-415); RED BLOOD COUNT 2.62 10^6/ul (4.70-6.10); RED CELL DISTRIBUTION WIDTH 16.2 % (11.5-14.5); WHITE BLOOD COUNT 9.6 10^3/ul (4.8-10.8)
[2016-08-04 06:54] LABS: POTASSIUM 3.9 mmol/L (3.5-5.1)
[2016-08-04 06:57] LABS: CALCIUM 8.6 mg/dl (8.4-10.2); CREATININE 7.33 mg/dl (0.61-1.24)
[2016-08-04] MEDS ORDERED: EPHEDrine SULFATE 50 MG/5 ML SYG ONE (07:00)
[2016-08-04] MEDS: METOPROLOL 100 MG TAB GTB SCH ×2 (08:57→21:00)
[2016-08-04] MEDS: SEVELAMER CARBONATE 0.8 GM PKT PO SCH ×3 (08:57→17:40)
[2016-08-04] MEDS: FAMOTIDINE 20 MG TAB PO SCH (08:57)
[2016-08-04] MEDS: ISONIAZID 300 MG TAB PO SCH (08:58)
[2016-08-04] MEDS: BENAZEPRIL 40 MG TAB PO SCH ×2 (08:58→21:00)
[2016-08-04] MEDS: FERROUS SULFATE (EC) 325 MG TAB PO SCH ×2 (08:58→21:00)
[2016-08-04] MEDS: PYRIDOXINE 50 MG TAB PO SCH (08:58)
[2016-08-04] MEDS: RIFAMPIN 300 MG CAP PO SCH (08:58)
[2016-08-04] MEDS: CHOLECALCIFEROL 400 UNITS TAB PO SCH (08:58)
[2016-08-04] MEDS: CALCIUM ACETATE 667 MG CAP PO SCH ×3 (08:58→17:40)
[2016-08-04] MEDS: NIFEdipine (XL) 60 MG TAB PO SCH ×2 (08:59→21:00)
[2016-08-04] MEDS: Insulin NOVOLOG SS MILD Algorithm (SS with meals and bedtime) SC SCH ×4 (09:05→21:00)
[2016-08-04] MEDS: INSULIN ASPART [NOVOLOG] 3 ML PEN SC SCH ×2 (09:09→11:52)
--- NOTE | 2016-08-04 12:55 | CONS ---
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 - a 35 mm lesion with possible cavitation in the anterior inferior RUL, possible recurrent tuberculosis - high risk for TB: history (originally from [facility], spends one month of each year in [facility], last in 09/2015), medical history (DM, ESRD), laboratory findings (positive quantiferon TB gold, granulomatous inflammation with focal necrosis on Bx of pleura) - AFB smear was negative x3, also M. tuberculosis DNA probe to the 1st sputum sample was undetectable in early 07/2016 - s/p R VATS, total pulmonary decortication, R pleurodesis on 06/30/2016. Biopsy was negative for fungal stain and AFB stain (micro lab and pathology department), as well as malignancy. It showed granulomatous inflammation with focal necrosis and extensive hyalinization. Chest tube was removed - h/o recurrent pleural effusion requiring thoracentesis approximately once a year, last performed in 04/2016 prior to this admission - positive quantiferon TB gold status of unknown duration. Per Pt, his past PPD was done in 2013, and was negative. - Our infection engineer remote control diesel Lindsey contacted the TB control unit at [facility]: we learned on 07/11/2016 that Pt has h/o mycobacterial tuberculosis infection in 1997 and was treated between 1997 and 1998. - DM - Hgb A1c 5.2% 06/17/16 - ESRD on HD - CAD s/p CABG in 2010 and cardiac stent in 2013 - HIV screen negative in 07/2016 tested at [facility] - nausea, Pt has been taking TB meds according to his RN recommendations - ordered from surgery: AFB, fungal, aerobic and anaerobic cultures, cytology, M. tuberculosis DNA probe. I asked Pt's RN to endorse OR nurse - I asked Pt's RN to call the infection control to see if Pt's airborne precautions can be discontinued - MTB DNA probe was ordered for the 1st sample of sputum (Yuriy at micro lab), will review the result - continue renally dosed RIPE plus vitamin B6 supplement (07/12/2016-) - check LFTs' weekly, ordered for tomorrow management d/w Pt and her RN Problems: Consultation Date/Type/Reason Admit Date/Time Jul 24, 2016 at 12:53 Initial Consult Date 07/25/16 Type of Consultation: Infectious Disease Referring Provider: EVA COX MD 24 HR Interval Summary Constitutional: no complaints Detailed Summary Eyes: no complaints ENT: no complaints Respiratory: cough, sputum, No pleuritic pain, No shortness of breath Cardiovascular: no complaints Gastrointestinal: no complaints Genitourinary: other (HD) Musculoskeletal: no complaints Skin: no complaints Neurologic: no complaints Exam/Review of Systems Vital Signs Vitals Vital Signs Date Time Temp Pulse Resp B/P Pulse Ox O2 Delivery O2 Flow Rate FiO2 08/04/16 12:12 97.9 71 16 163/81 92 08/02/16 05:54 21 08/01/16 19:54 Room Air Intake and Output 08/03/16 08/03/16 08/04/16 15:00 23:00 07:00 Intake Total 720 ml 300 ml Balance 720 ml 300 ml Exam Constitutional: alert, frail, oriented, well developed Psych: nl mood/affect, no complaints Head: atraumatic, normocephalic Eyes: nl conjunctiva, nl lids ENMT: nl external ears & nose, nl nasal mucosa & septum Neck: supple Respiratory: diminished breath sounds Cardiovascular: nl pulses, regular rate and rhythm Gastrointestinal: non-tender, soft Extremities: No edema Results Result Diagram: 08/04/16 0615 08/04/16 0615 Results 24 hrs Laboratory Tests Test 08/03/16 18:00 08/03/16 21:11 08/04/16 06:15 08/04/16 08:56 Bedside Glucose 188 142 158 White Blood Count 9.6 Red Blood Count 2.62 L Hemoglobin 8.3 L Hematocrit 25.0 L Mean Corpuscular Volume 95.4 Mean Corpuscular Hemoglobin 31.7 Mean Corpuscular Hemoglobin Concent 33.2 Red Cell Distribution Width 16.2 H Platelet Count 144 Mean Platelet Volume 10.5 H Neutrophils % 78.8 H Lymphocytes % 7.4 L Monocytes % 11.6 H Eosinophils % 1.4 Basophils % 0.4 Nucleated Red Blood Cells % 0.0 Neutrophils # 7.5 Lymphocytes # 0.7 L Monocytes # 1.1 H Eosinophils # 0.1 Basophils # 0.0 Nucleated Red Blood Cells # 0.0 Sodium Level 136 Potassium Level 3.9 Chloride Level 100 Carbon Dioxide Level 24 Anion Gap 16 Blood Urea Nitrogen 73 H Creatinine 7.33 H Glucose Level 50 #*L Calcium Level 8.6 Test 08/04/16 11:47 Bedside Glucose 159 Medications Medications Current Medications Aspirin (Halfprin) 81 mg DAILY PO Last administered on 07/26/16 08:39; Admin Dose 81 MG; Start 07/25/16 at 09:00; Status Future Hold Atorvastatin Calcium (Lipitor) 10 mg QHS PO Last administered on 08/03/16 21:14 ; Admin Dose 10 MG; Start 07/24/16 at 21:00 Benazepril HCl (Lotensin) 40 mg BID PO Last administered on 08/04/16 08:58; Admin Dose 40 MG; Start 07/24/16 at 21:00 Cholecalciferol (Vitamin D) 400 units DAILY PO Last administered on 08/04/16 08 :58; Admin Dose 400 UNITS; Start 07/25/16 at 09:00 Famotidine (Pepcid) 20 mg DAILY PO Last administered on 08/04/16 08:57; Admin Dose 20 MG; Start 07/25/16 at 09:00 Ferrous Sulfate (Ferrous Sulfate (Ec)) 325 mg BID PO Last administered on 08:58; Admin Dose 325 MG; Start 07/24/16 at 21:00 Acetaminophen/ Hydrocodone Bitart ([place] (5/325)) 1 tab Q4H PRN PO PAIN Last administered on 08/03/16 12:30; Admin Dose 1 TAB; Start 07/24/16 at 17:00 Insulin Glargine (Lantus) 6 unit DAILY@20 SC Last administered on 08/03/16 21: 17; Admin Dose 6 UNIT; Start 07/24/16 at 20:00 Isoniazid (Isoniazid) 300 mg DAILY PO Last administered on 08/04/16 08:58; Admin Dose 300 MG; Start 07/24/16 at 15:30 Nifedipine (Procardia Xl) 60 mg BID PO Last administered on 08/04/16 08:59; Admin Dose 60 MG; Start 07/24/16 at 21:00 Pyridoxine HCl (Vitamin B6) 50 mg DAILY PO Last administered on 08/04/16 08:58 ; Admin Dose 50 MG; Start 07/25/16 at 09:00 Rifampin (Rifampin) 600 mg DAILY PO Last administered on 08/04/16 08:58; Admin Dose 600 MG; Start 07/25/16 at 09:00 Miscellaneous Information 1 ea NOTE XX ; Start 07/24/16 at 16:00 Glucose (Glutose) 15 gm Q15M PRN PO DECREASED GLUCOSE; Start 07/24/16 at 16:00 Glucose (Glutose) 22.5 gm Q15M PRN PO DECREASED GLUCOSE; Start 07/24/16 at 16: 00 Dextrose (D50w Syringe) 25 ml Q15M PRN IV DECREASED GLUCOSE; Start 07/24/16 at 16:00 Dextrose (D50w Syringe) 50 ml Q15M PRN IV DECREASED GLUCOSE; Start 07/24/16 at 16:00 Glucagon (Glucagen) 1 mg Q15M PRN IM DECREASED GLUCOSE; Start 07/24/16 at 16:00 Glucose (Glutose) 15 gm Q15M PRN BUCCAL DECREASED GLUCOSE; Start 07/24/16 at 16 :00 Ondansetron HCl (Zofran Inj) 4 mg Q4 PRN IV nausea Last administered on 10:53; Admin Dose 4 MG; Start 07/24/16 at 17:00 Metoclopramide HCl (Reglan) 5 mg Q4H PRN IV NAUSEA Last administered on 10:46; Admin Dose 5 MG; Start 07/24/16 at 22:30 Diagnostic Test (Pha) (Accu-Chek) 1 ea 02 XX Last administered on 07/28/16 02: 54; Admin Dose 1 EA; Start 07/26/16 at 12:00 Metoprolol Tartrate (Lopressor) 100 mg BID GTB Last administered on 08/04/16 08 :57; Admin Dose 100 MG; Start 07/26/16 at 13:30 Clonidine HCl (Catapres-Tts 2 Patch) 1 patch Q7D TRANSDERM Last administered on 08/03/16 06:32; Admin Dose 1 PATCH; Start 07/27/16 at 07:00 Pantoprazole (Protonix Tab) 40 mg DAILY@06 PO Last administered on 08/04/16 06: 05; Admin Dose 40 MG; Start 07/28/16 at 06:00 Hydralazine HCl (Apresoline) 20 mg Q4 PRN IV ELEVATED BLOOD PRESSURE Last administered on 07/30/16 02:15; Admin Dose 20 MG; Start 07/28/16 at 02:00 Doxazosin Mesylate (Cardura) 2 mg HS PO Last administered on 08/03/16 21:15; Admin Dose 2 MG; Start 07/28/16 at 21:00 Polyethylene Glycol (Miralax) 17 gm DAILY PRN GTB CONSTIPATION Last administered on 07/28/16 20:22; Admin Dose 17 GM; Start 07/28/16 at 19:30 Lorazepam (Ativan) 1 mg Q4H PRN IV anxiety Last administered on 07/30/16 20:48 ; Admin Dose 1 MG; Start 07/29/16 at 06:30 Ethambutol HCl (Myambutol) 900 mg TuThSa@20 PO Last administered on 07/31/16 21:07; Admin Dose 900 MG; Start 07/31/16 at 20:00 Pyrazinamide (Pyrazinamide) 1,250 mg TuThSa@20 PO ; Start 07/31/16 at 20:00 Hydromorphone HCl (Dilaudid) 1 mg Q2H PRN IV pain Last administered on 02:19; Admin Dose 1 MG; Start 08/02/16 at 19:00 YUMIKO NICHOLSON M.D. Aug 04, 2016 12:55
--- NOTE | 2016-08-04 13:53 | CONS ---
Date/Time of Note Date/Time of Note DATE: 08/04/16 TIME: 13:51 Assessment/Plan Assessment/Plan Additional Assessment/Plan Assessment recommendations; 1. 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 2. End-stage renal disease, on hemodialysis. 3. History of diabetes, hypertension. 4. Prior history of coronary artery disease, status post bypass surgery. Continue current treatment. Patient scheduled for VATS procedure on the right side today. Consultation Date/Type/Reason Admit Date/Time Jul 24, 2016 at 12:53 Initial Consult Date 07/25/16 Type of Consultation: Pulmonary Referring Provider: EVA COX MD 24 HR Interval Summary Free Text/Dictation Patient condition is stable. Denies any shortness of breath, coughing, fever, chest pain. Denies any sputum production. Any further hemoptysis. General exam; elderly male, currently in no distress awake and alert. Exam/Review of Systems Vital Signs Vitals Vital Signs Date Time Temp Pulse Resp B/P Pulse Ox O2 Delivery O2 Flow Rate FiO2 08/04/16 13:20 80 08/04/16 12:12 97.9 16 163/81 92 08/02/16 05:54 21 08/01/16 19:54 Room Air Intake and Output 08/03/16 08/03/16 08/04/16 15:00 23:00 07:00 Intake Total 720 ml 300 ml Balance 720 ml 300 ml Exam H EENT exam is; supple neck, no JVD. No lymphadenopathy. Midline trachea. No thyromegaly. Pharynx is clear. Pupils are midsize and reactive to light. Chest examination; minimally decreased breath sounds right lower lobe otherwise clear to auscultation. S1-S2 audible, no murmurs. Regular rhythm. There is a well-healed sternal scar. Abdomen exam is; soft, no organomegaly. Bowel sounds audible. Nontender. Extremity exam is; no peripheral edema. [employer] [place] [employer] exam is; no focal deficit. Results Result Diagram: 08/04/16 0615 08/04/16 0615 Results 24 hrs Laboratory Tests Test 08/03/16 18:00 08/03/16 21:11 08/04/16 06:15 08/04/16 08:56 Bedside Glucose 188 142 158 White Blood Count 9.6 Red Blood Count 2.62 L Hemoglobin 8.3 L Hematocrit 25.0 L Mean Corpuscular Volume 95.4 Mean Corpuscular Hemoglobin 31.7 Mean Corpuscular Hemoglobin Concent 33.2 Red Cell Distribution Width 16.2 H Platelet Count 144 Mean Platelet Volume 10.5 H Neutrophils % 78.8 H Lymphocytes % 7.4 L Monocytes % 11.6 H Eosinophils % 1.4 Basophils % 0.4 Nucleated Red Blood Cells % 0.0 Neutrophils # 7.5 Lymphocytes # 0.7 L Monocytes # 1.1 H Eosinophils # 0.1 Basophils # 0.0 Nucleated Red Blood Cells # 0.0 Sodium Level 136 Potassium Level 3.9 Chloride Level 100 Carbon Dioxide Level 24 Anion Gap 16 Blood Urea Nitrogen 73 H Creatinine 7.33 H Glucose Level 50 #*L Calcium Level 8.6 Test 08/04/16 11:47 Bedside Glucose 159 Medications Medications Current Medications Aspirin (Halfprin) 81 mg DAILY PO Last administered on 07/26/16 08:39; Admin Dose 81 MG; Start 07/25/16 at 09:00; Status Future Hold Atorvastatin Calcium (Lipitor) 10 mg QHS PO Last administered on 08/03/16 21:14 ; Admin Dose 10 MG; Start 07/24/16 at 21:00 Benazepril HCl (Lotensin) 40 mg BID PO Last administered on 08/04/16 08:58; Admin Dose 40 MG; Start 07/24/16 at 21:00 Cholecalciferol (Vitamin D) 400 units DAILY PO Last administered on 08/04/16 08 :58; Admin Dose 400 UNITS; Start 07/25/16 at 09:00 Famotidine (Pepcid) 20 mg DAILY PO Last administered on 08/04/16 08:57; Admin Dose 20 MG; Start 07/25/16 at 09:00 Ferrous Sulfate (Ferrous Sulfate (Ec)) 325 mg BID PO Last administered on 08:58; Admin Dose 325 MG; Start 07/24/16 at 21:00 Acetaminophen/ Hydrocodone Bitart ([place] (5/325)) 1 tab Q4H PRN PO PAIN Last administered on 08/03/16 12:30; Admin Dose 1 TAB; Start 07/24/16 at 17:00 Insulin Glargine (Lantus) 6 unit DAILY@20 SC Last administered on 08/03/16 21: 17; Admin Dose 6 UNIT; Start 07/24/16 at 20:00 Isoniazid (Isoniazid) 300 mg DAILY PO Last administered on 08/04/16 08:58; Admin Dose 300 MG; Start 07/24/16 at 15:30 Nifedipine (Procardia Xl) 60 mg BID PO Last administered on 08/04/16 08:59; Admin Dose 60 MG; Start 07/24/16 at 21:00 Pyridoxine HCl (Vitamin B6) 50 mg DAILY PO Last administered on 08/04/16 08:58 ; Admin Dose 50 MG; Start 07/25/16 at 09:00 Rifampin (Rifampin) 600 mg DAILY PO Last administered on 08/04/16 08:58; Admin Dose 600 MG; Start 07/25/16 at 09:00 Miscellaneous Information 1 ea NOTE XX ; Start 07/24/16 at 16:00 Glucose (Glutose) 15 gm Q15M PRN PO DECREASED GLUCOSE; Start 07/24/16 at 16:00 Glucose (Glutose) 22.5 gm Q15M PRN PO DECREASED GLUCOSE; Start 07/24/16 at 16: 00 Dextrose (D50w Syringe) 25 ml Q15M PRN IV DECREASED GLUCOSE; Start 07/24/16 at 16:00 Dextrose (D50w Syringe) 50 ml Q15M PRN IV DECREASED GLUCOSE; Start 07/24/16 at 16:00 Glucagon (Glucagen) 1 mg Q15M PRN IM DECREASED GLUCOSE; Start 07/24/16 at 16:00 Glucose (Glutose) 15 gm Q15M PRN BUCCAL DECREASED GLUCOSE; Start 07/24/16 at 16 :00 Ondansetron HCl (Zofran Inj) 4 mg Q4 PRN IV nausea Last administered on 10:53; Admin Dose 4 MG; Start 07/24/16 at 17:00 Metoclopramide HCl (Reglan) 5 mg Q4H PRN IV NAUSEA Last administered on 10:46; Admin Dose 5 MG; Start 07/24/16 at 22:30 Diagnostic Test (Pha) (Accu-Chek) 1 ea 02 XX Last administered on 07/28/16 02: 54; Admin Dose 1 EA; Start 07/26/16 at 12:00 Metoprolol Tartrate (Lopressor) 100 mg BID GTB Last administered on 08/04/16 08 :57; Admin Dose 100 MG; Start 07/26/16 at 13:30 Clonidine HCl (Catapres-Tts 2 Patch) 1 patch Q7D TRANSDERM Last administered on 08/03/16 06:32; Admin Dose 1 PATCH; Start 07/27/16 at 07:00 Pantoprazole (Protonix Tab) 40 mg DAILY@06 PO Last administered on 08/04/16 06: 05; Admin Dose 40 MG; Start 07/28/16 at 06:00 Hydralazine HCl (Apresoline) 20 mg Q4 PRN IV ELEVATED BLOOD PRESSURE Last administered on 07/30/16 02:15; Admin Dose 20 MG; Start 07/28/16 at 02:00 Doxazosin Mesylate (Cardura) 2 mg HS PO Last administered on 08/03/16 21:15; Admin Dose 2 MG; Start 07/28/16 at 21:00 Polyethylene Glycol (Miralax) 17 gm DAILY PRN GTB CONSTIPATION Last administered on 07/28/16 20:22; Admin Dose 17 GM; Start 07/28/16 at 19:30 Lorazepam (Ativan) 1 mg Q4H PRN IV anxiety Last administered on 07/30/16 20:48 ; Admin Dose 1 MG; Start 07/29/16 at 06:30 Ethambutol HCl (Myambutol) 900 mg TuThSa@20 PO Last administered on 07/31/16 21:07; Admin Dose 900 MG; Start 07/31/16 at 20:00 Pyrazinamide (Pyrazinamide) 1,250 mg TuThSa@20 PO ; Start 07/31/16 at 20:00 Hydromorphone HCl (Dilaudid) 1 mg Q2H PRN IV pain Last administered on 02:19; Admin Dose 1 MG; Start 08/02/16 at 19:00 BOONE POLO Aug 04, 2016 13:53
[2016-08-04] MEDS: hydrALAzine 20 MG INJ IV PRN (16:35)
--- NOTE | 2016-08-04 18:40 | PN ---
Date/Time of Note Date/Time of Note DATE: 08/04/16 TIME: 18:38 Assessment/Plan VTE Prophylaxis VTE Prophylaxis Intervention: SCD's Lines/Catheters IV [facility]from [facility] Central Line Central line still needed: Yes Urinary Cath still in place: No Assessment/Plan Chief Complaint/Hosp Course Assessment and plan: - Recurrent right pleural effusion consistent with empyema, cavitary lesions, plan for VATS today. Plavix is on hold. -Hemoptysis, resolved. Dr. Dale is following in pulmonology consultation. Dr. Caitlin balderas is following an infection disease consultation. -Right former chest tube site bleeding, resolved. Dr. Martinez is following in thoracic surgery consultation. -Anemia of acute blood loss, patient had bleeding from the right femoral catheter as well as chest tube site on admission, status post blood transfusion , continue to monitor hemoglobin and hematocrit. Dr. Martinez is following in hematology consultation. 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 - End-stage renal disease, continue hemodialysis. Dr. Saunders is following in nephrology consultation. - Diabetes mellitus type 2, continue Lantus, pre-meal NovoLog and NovoLog per mild algorithm sliding scale. - Hypertension. Dr. De Santiago is following and cardiology consultation. Continue benazepril metoprolol hydralazine Procardia - Coronary artery disease, status post coronary artery bypass graft, s/p percutaneous transluminal coronary angioplasty and stent placement to left main and left anterior descending in 2014. - Permanent pacemaker. No acute issues. - Dyslipidemia. Continue Lipitor. Further recommendations based on clinical course. Plan of care discussed with Dr. Price. Problems: Subjective 24 Hr Interval Summary Free Text/Dictation Patient looks comfortable, denies any fever denies chills, patient is currently n.p.o. awaits for VATS procedure today Exam/Review of Systems Vital Signs Vitals Vital Signs Date Time Temp Pulse Resp B/P Pulse Ox O2 Delivery O2 Flow Rate FiO2 08/04/16 17:02 155/68 08/04/16 16:13 69 08/04/16 12:12 97.9 16 92 08/02/16 05:54 21 08/01/16 19:54 Room Air Intake and Output 08/03/16 08/03/16 08/04/16 14:59 22:59 06:59 Intake Total 720 ml 300 ml Balance 720 ml 300 ml Exam Constitutional: alert, oriented Psych: no complaints Head: atraumatic, normocephalic ENMT: nl external ears & nose Neck: non-tender, supple Respiratory: clear to auscultation, normal air movement Cardiovascular: other (Left chest permanent pacemaker), regular rate and rhythm Gastrointestinal: bowel sounds, soft Extremities: normal pulses Neurological: MANAGER CRISIS II-XII intact Results Result Diagram: 08/04/1615 08/04/1615 Results 24 hrs Laboratory Tests Test 08/03/16 21:11 08/04/16 06:15 08/04/16 08:56 08/04/16 11:47 Bedside Glucose 142 158 159 White Blood Count 9.6 Red Blood Count 2.62 L Hemoglobin 8.3 L Hematocrit 25.0 L Mean Corpuscular Volume 95.4 Mean Corpuscular Hemoglobin 31.7 Mean Corpuscular Hemoglobin Concent 33.2 Red Cell Distribution Width 16.2 H Platelet Count 144 Mean Platelet Volume 10.5 H Neutrophils % 78.8 H Lymphocytes % 7.4 L Monocytes % 11.6 H Eosinophils % 1.4 Basophils % 0.4 Nucleated Red Blood Cells % 0.0 Neutrophils # 7.5 Lymphocytes # 0.7 L Monocytes # 1.1 H Eosinophils # 0.1 Basophils # 0.0 Nucleated Red Blood Cells # 0.0 Sodium Level 136 Potassium Level 3.9 Chloride Level 100 Carbon Dioxide Level 24 Anion Gap 16 Blood Urea Nitrogen 73 H Creatinine 7.33 H Glucose Level 50 #*L Calcium Level 8.6 Test 08/04/16 16:53 Bedside Glucose 126 Medications Medications Current Medications Aspirin (Halfprin) 81 mg DAILY PO Last administered on 07/26/16 08:39; Admin Dose 81 MG; Start 07/25/16 at 09:00; Status Future Hold Atorvastatin Calcium (Lipitor) 10 mg QHS PO Last administered on 08/03/16 21:14 ; Admin Dose 10 MG; Start 07/24/16 at 21:00 Benazepril HCl (Lotensin) 40 mg BID PO Last administered on 08/04/16 08:58; Admin Dose 40 MG; Start 07/24/16 at 21:00 Cholecalciferol (Vitamin D) 400 units DAILY PO Last administered on 08/04/16 08 :58; Admin Dose 400 UNITS; Start 07/25/16 at 09:00 Famotidine (Pepcid) 20 mg DAILY PO Last administered on 08/04/16 08:57; Admin Dose 20 MG; Start 07/25/16 at 09:00 Ferrous Sulfate (Ferrous Sulfate (Ec)) 325 mg BID PO Last administered on 08:58; Admin Dose 325 MG; Start 07/24/16 at 21:00 Acetaminophen/ Hydrocodone Bitart ([place] (5/325)) 1 tab Q4H PRN PO PAIN Last administered on 08/03/16 12:30; Admin Dose 1 TAB; Start 07/24/16 at 17:00 Insulin Glargine (Lantus) 6 unit DAILY@20 SC Last administered on 08/03/16 21: 17; Admin Dose 6 UNIT; Start 07/24/16 at 20:00 Isoniazid (Isoniazid) 300 mg DAILY PO Last administered on 08/04/16 08:58; Admin Dose 300 MG; Start 07/24/16 at 15:30 Nifedipine (Procardia Xl) 60 mg BID PO Last administered on 08/04/16 08:59; Admin Dose 60 MG; Start 07/24/16 at 21:00 Pyridoxine HCl (Vitamin B6) 50 mg DAILY PO Last administered on 08/04/16 08:58 ; Admin Dose 50 MG; Start 07/25/16 at 09:00 Rifampin (Rifampin) 600 mg DAILY PO Last administered on 08/04/16 08:58; Admin Dose 600 MG; Start 07/25/16 at 09:00 Miscellaneous Information 1 ea NOTE XX ; Start 07/24/16 at 16:00 Glucose (Glutose) 15 gm Q15M PRN PO DECREASED GLUCOSE; Start 07/24/16 at 16:00 Glucose (Glutose) 22.5 gm Q15M PRN PO DECREASED GLUCOSE; Start 07/24/16 at 16: 00 Dextrose (D50w Syringe) 25 ml Q15M PRN IV DECREASED GLUCOSE; Start 07/24/16 at 16:00 Dextrose (D50w Syringe) 50 ml Q15M PRN IV DECREASED GLUCOSE; Start 07/24/16 at 16:00 Glucagon (Glucagen) 1 mg Q15M PRN IM DECREASED GLUCOSE; Start 07/24/16 at 16:00 Glucose (Glutose) 15 gm Q15M PRN BUCCAL DECREASED GLUCOSE; Start 07/24/16 at 16 :00 Ondansetron HCl (Zofran Inj) 4 mg Q4 PRN IV nausea Last administered on 10:53; Admin Dose 4 MG; Start 07/24/16 at 17:00 Metoclopramide HCl (Reglan) 5 mg Q4H PRN IV NAUSEA Last administered on 10:46; Admin Dose 5 MG; Start 07/24/16 at 22:30 Diagnostic Test (Pha) (Accu-Chek) 1 ea 02 XX Last administered on 07/28/16 02: 54; Admin Dose 1 EA; Start 07/26/16 at 12:00 Metoprolol Tartrate (Lopressor) 100 mg BID GTB Last administered on 08/04/16 08 :57; Admin Dose 100 MG; Start 07/26/16 at 13:30 Clonidine HCl (Catapres-Tts 2 Patch) 1 patch Q7D TRANSDERM Last administered on 08/03/16 06:32; Admin Dose 1 PATCH; Start 07/27/16 at 07:00 Pantoprazole (Protonix Tab) 40 mg DAILY@06 PO Last administered on 08/04/16 06: 05; Admin Dose 40 MG; Start 07/28/16 at 06:00 Hydralazine HCl (Apresoline) 20 mg Q4 PRN IV ELEVATED BLOOD PRESSURE Last administered on 08/04/16 16:35; Admin Dose 20 MG; Start 07/28/16 at 02:00 Doxazosin Mesylate (Cardura) 2 mg HS PO Last administered on 08/03/16 21:15; Admin Dose 2 MG; Start 07/28/16 at 21:00 Polyethylene Glycol (Miralax) 17 gm DAILY PRN GTB CONSTIPATION Last administered on 07/28/16 20:22; Admin Dose 17 GM; Start 07/28/16 at 19:30 Lorazepam (Ativan) 1 mg Q4H PRN IV anxiety Last administered on 07/30/16 20:48 ; Admin Dose 1 MG; Start 07/29/16 at 06:30 Ethambutol HCl (Myambutol) 900 mg TuThSa@20 PO Last administered on 07/31/16 21:07; Admin Dose 900 MG; Start 07/31/16 at 20:00 Pyrazinamide (Pyrazinamide) 1,250 mg TuThSa@20 PO ; Start 07/31/16 at 20:00 Hydromorphone HCl (Dilaudid) 1 mg Q2H PRN IV pain Last administered on 02:19; Admin Dose 1 MG; Start 08/02/16 at 19:00 CECILIA DAMICO Aug 04, 2016 18:40
--- NOTE | 2016-08-04 19:10 | CONS ---
Date/Time of Note Date/Time of Note DATE: 08/04/16 TIME: 19:09 Assessment/Plan Assessment/Plan Chief Complaint/Hosp Course IMPRESSION: 1. Recurrent pleural effusions. 2. Lung infiltrate./cavitary lesion 3. chronic lung disease. 4. Hypertension. 5. Diabetes mellitus. 6. End-stage renal disease. 7. anemia. 8. cad. 9. Leukocytosis.better 10. ashd 11. s/p vats. 12. The patient on anti-tuberculosis treatment. 13. 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 PLAN HD 3x wk per pt per id and surgery vats today Problems: Consultation Date/Type/Reason Admit Date/Time Jul 24, 2016 at 12:53 Initial Consult Date 07/25/16 Type of Consultation: renal Referring Provider: EVA OCX MD 24 HR Interval Summary Constitutional: no complaints Exam/Review of Systems Vital Signs Vitals Vital Signs Date Time Temp Pulse Resp B/P Pulse Ox O2 Delivery O2 Flow Rate FiO2 08/04/16 17:02 155/68 08/04/16 16:13 69 08/04/16 12:12 97.9 16 92 08/02/16 05:54 21 08/01/16 19:54 Room Air Intake and Output 08/03/16 08/03/16 08/04/16 15:00 23:00 07:00 Intake Total 720 ml 300 ml Balance 720 ml 300 ml Exam Neck: supple Respiratory: diminished breath sounds Cardiovascular: regular rate and rhythm Gastrointestinal: soft Genitourinary - Male: nl penis Musculoskeletal: nl extremities to inspection Results Result Diagram: 08/04/16 0615 08/04/16 0615 Results 24 hrs Laboratory Tests Test 08/03/16 21:11 08/04/16 06:15 08/04/16 08:56 08/04/16 11:47 Bedside Glucose 142 158 159 White Blood Count 9.6 Red Blood Count 2.62 L Hemoglobin 8.3 L Hematocrit 25.0 L Mean Corpuscular Volume 95.4 Mean Corpuscular Hemoglobin 31.7 Mean Corpuscular Hemoglobin Concent 33.2 Red Cell Distribution Width 16.2 H Platelet Count 144 Mean Platelet Volume 10.5 H Neutrophils % 78.8 H Lymphocytes % 7.4 L Monocytes % 11.6 H Eosinophils % 1.4 Basophils % 0.4 Nucleated Red Blood Cells % 0.0 Neutrophils # 7.5 Lymphocytes # 0.7 L Monocytes # 1.1 H Eosinophils # 0.1 Basophils # 0.0 Nucleated Red Blood Cells # 0.0 Sodium Level 136 Potassium Level 3.9 Chloride Level 100 Carbon Dioxide Level 24 Anion Gap 16 Blood Urea Nitrogen 73 H Creatinine 7.33 H Glucose Level 50 #*L Calcium Level 8.6 Test 08/04/16 16:53 Bedside Glucose 126 Medications Medications Current Medications Aspirin (Halfprin) 81 mg DAILY PO Last administered on 07/26/16 08:39; Admin Dose 81 MG; Start 07/25/16 at 09:00; Status Future Hold Atorvastatin Calcium (Lipitor) 10 mg QHS PO Last administered on 08/03/16 21:14 ; Admin Dose 10 MG; Start 07/24/16 at 21:00 Benazepril HCl (Lotensin) 40 mg BID PO Last administered on 08/04/16 08:58; Admin Dose 40 MG; Start 07/24/16 at 21:00 Cholecalciferol (Vitamin D) 400 units DAILY PO Last administered on 08/04/16 08 :58; Admin Dose 400 UNITS; Start 07/25/16 at 09:00 Famotidine (Pepcid) 20 mg DAILY PO Last administered on 08/04/16 08:57; Admin Dose 20 MG; Start 07/25/16 at 09:00 Ferrous Sulfate (Ferrous Sulfate (Ec)) 325 mg BID PO Last administered on 08:58; Admin Dose 325 MG; Start 07/24/16 at 21:00 Acetaminophen/ Hydrocodone Bitart ([place] (5/325)) 1 tab Q4H PRN PO PAIN Last administered on 08/03/16 12:30; Admin Dose 1 TAB; Start 07/24/16 at 17:00 Insulin Glargine (Lantus) 6 unit DAILY@20 SC Last administered on 08/03/16 21: 17; Admin Dose 6 UNIT; Start 07/24/16 at 20:00 Isoniazid (Isoniazid) 300 mg DAILY PO Last administered on 08/04/16 08:58; Admin Dose 300 MG; Start 07/24/16 at 15:30 Nifedipine (Procardia Xl) 60 mg BID PO Last administered on 08/04/16 08:59; Admin Dose 60 MG; Start 07/24/16 at 21:00 Pyridoxine HCl (Vitamin B6) 50 mg DAILY PO Last administered on 08/04/16 08:58 ; Admin Dose 50 MG; Start 07/25/16 at 09:00 Rifampin (Rifampin) 600 mg DAILY PO Last administered on 08/04/16 08:58; Admin Dose 600 MG; Start 07/25/16 at 09:00 Miscellaneous Information 1 ea NOTE XX ; Start 07/24/16 at 16:00 Glucose (Glutose) 15 gm Q15M PRN PO DECREASED GLUCOSE; Start 07/24/16 at 16:00 Glucose (Glutose) 22.5 gm Q15M PRN PO DECREASED GLUCOSE; Start 07/24/16 at 16: 00 Dextrose (D50w Syringe) 25 ml Q15M PRN IV DECREASED GLUCOSE; Start 07/24/16 at 16:00 Dextrose (D50w Syringe) 50 ml Q15M PRN IV DECREASED GLUCOSE; Start 07/24/16 at 16:00 Glucagon (Glucagen) 1 mg Q15M PRN IM DECREASED GLUCOSE; Start 07/24/16 at 16:00 Glucose (Glutose) 15 gm Q15M PRN BUCCAL DECREASED GLUCOSE; Start 07/24/16 at 16 :00 Ondansetron HCl (Zofran Inj) 4 mg Q4 PRN IV nausea Last administered on 10:53; Admin Dose 4 MG; Start 07/24/16 at 17:00 Metoclopramide HCl (Reglan) 5 mg Q4H PRN IV NAUSEA Last administered on 10:46; Admin Dose 5 MG; Start 07/24/16 at 22:30 Diagnostic Test (Pha) (Accu-Chek) 1 ea 02 XX Last administered on 07/28/16 02: 54; Admin Dose 1 EA; Start 07/26/16 at 12:00 Metoprolol Tartrate (Lopressor) 100 mg BID GTB Last administered on 08/04/16 08 :57; Admin Dose 100 MG; Start 07/26/16 at 13:30 Clonidine HCl (Catapres-Tts 2 Patch) 1 patch Q7D TRANSDERM Last administered on 08/03/16 06:32; Admin Dose 1 PATCH; Start 07/27/16 at 07:00 Pantoprazole (Protonix Tab) 40 mg DAILY@06 PO Last administered on 08/04/16 06: 05; Admin Dose 40 MG; Start 07/28/16 at 06:00 Hydralazine HCl (Apresoline) 20 mg Q4 PRN IV ELEVATED BLOOD PRESSURE Last administered on 08/04/16 16:35; Admin Dose 20 MG; Start 07/28/16 at 02:00 Doxazosin Mesylate (Cardura) 2 mg HS PO Last administered on 08/03/16 21:15; Admin Dose 2 MG; Start 07/28/16 at 21:00 Polyethylene Glycol (Miralax) 17 gm DAILY PRN GTB CONSTIPATION Last administered on 07/28/16 20:22; Admin Dose 17 GM; Start 07/28/16 at 19:30 Lorazepam (Ativan) 1 mg Q4H PRN IV anxiety Last administered on 07/30/16 20:48 ; Admin Dose 1 MG; Start 07/29/16 at 06:30 Ethambutol HCl (Myambutol) 900 mg TuThSa@20 PO Last administered on 07/31/16 21:07; Admin Dose 900 MG; Start 07/31/16 at 20:00 Pyrazinamide (Pyrazinamide) 1,250 mg TuThSa@20 PO ; Start 07/31/16 at 20:00 Hydromorphone HCl (Dilaudid) 1 mg Q2H PRN IV pain Last administered on 02:19; Admin Dose 1 MG; Start 08/02/16 at 19:00 Hydralazine HCl (Apresoline) 25 mg Q8 PO ; Start 08/04/16 at 22:00 PAOLA MOODY MD Aug 04, 2016 19:10
[2016-08-04] MEDS ORDERED: LIDOCAINE 0.5% (MDV) 50 ML INJ ONE (19:25)
[2016-08-04] MEDS ORDERED: BUPIVACAINE 0.5%/EPI (SDV) 30 ML INJ ONE (19:25)
[2016-08-04] MEDS ORDERED: PROPOFOL 20 ML ONE (19:28)
[2016-08-04] MEDS ORDERED: METOCLOPRAMIDE 10 MG INJ ONE (19:28)
[2016-08-04] MEDS ORDERED: ROCURONIUM 50 MG INJ ONE ×2 (19:28→20:21)
[2016-08-04] MEDS ORDERED: MIDAZOLAM 1 MG/ML 2 ML INJ ONE (19:28)
[2016-08-04] MEDS: INSULIN GLARGINE [LANtus] 3 ML PEN SC SCH (20:00)
[2016-08-04] MEDS ORDERED: LIDOCAINE 2% JELLY 5 ML ONE ×2 (20:17)
[2016-08-04] MEDS ORDERED: FENTAnyl 50 MCG/ML VIAL ONE (20:17)
[2016-08-04] MEDS ORDERED: ETOMIDATE 20 MG INJ ONE (20:26)
[2016-08-04] MEDS: ATORVASTATIN 10 MG TAB PO SCH (21:00)
[2016-08-04] MEDS: DOXAZOSIN 2 MG TAB PO SCH (21:00)
[2016-08-04] MEDS ORDERED: THROMBIN 5000 UNIT VIAL ONE (21:09)
[2016-08-04] MEDS ORDERED: SURGIFOAM POWDER 1 GM KIT ONE (21:09)
[2016-08-04] MEDS ORDERED: PHENYLephrine (100 MCG/ML) 5ML SYG ONE ×2 (21:18→21:20)
[2016-08-04] MEDS ORDERED: ALBUMIN HUMAN 25% 100 ML ONE (22:10)
--- NOTE | 2016-08-04 22:24 | OPR ---
Date/Time of Note Date/Time of Note DATE: 08/04/16 TIME: 22:20 Operative Report Procedure Date: Aug 04, 2016 Preoperative Diagnosis Right pleural effusion Postoperative Diagnosis same Operation Performed Right VATS, decortication thoracotomy Surgeon: LILIA FELIZ MD Anesthesia: general Estimated Blood Loss: 100 - 150 ml's Specimens Clot , peel Tubes/Drains CT Complications: None Pt Condition Post Procedure: critical Disposition: PACU Indications Right pleural effusion Operative\Procedure Findings Dictated Procedure Description Dictated LILIA FELIZ MD Aug 04, 2016 22:24
[2016-08-04] MEDS ORDERED: DIPHENHYDRAMINE 50 MG INJ IV PRN (22:30)
[2016-08-04] MEDS ORDERED: ONDANSETRON 4 MG INJ IV PRN (22:30)
[2016-08-04] MEDS ORDERED: MEPERIDINE 25 MG INJ IV PRN (22:30)
[2016-08-04] MEDS ORDERED: HYDROmorphONE (0.2 MG/ML) 10ML SYG IV PRN ×2 (22:30)
[2016-08-04] MEDS ORDERED: METOCLOPRAMIDE 10 MG INJ IV PRN (22:30)
[2016-08-04 22:41] LABS: ADD SCAN DIFF NO
[2016-08-04 22:43] LABS: BASOPHILS % 0.4 % (0.0-2.0); EOSINOPHILS # 0.1 10^3/ul (0.0-0.5); HEMATOCRIT 30.3 % (42.0-52.0); HEMOGLOBIN 10.2 g/dl (14.0-18.0); LYMPHOCYTES # 0.8 10^3/ul (0.8-2.9); LYMPHOCYTES % 8.7 % (15.0-51.0); MEAN CORPUSCULAR HEMOGLOBIN 30.8 pg (29.0-33.0); MEAN CORPUSCULAR HGB CONC 33.7 g/dl (32.0-37.0); MEAN CORPUSCULAR VOLUME 91.5 fl (82.0-101.0); MEAN PLATELET VOLUME 10.6 fl (7.4-10.4); MONOCYTE # 0.8 10^3/ul (0.3-0.9); NEUTROPHIL # 7.5 10^3/ul (1.6-7.5); NEUTROPHILS % 80.3 % (39.0-77.0); PLATELET COUNT 109 10^3/UL (140-415); RED BLOOD COUNT 3.31 10^6/ul (4.70-6.10); RED CELL DISTRIBUTION WIDTH 15.3 % (11.5-14.5); WHITE BLOOD COUNT 9.3 10^3/ul (4.8-10.8)
[2016-08-04 22:52] LABS: INR 1.08; PT RATIO 1.1
[2016-08-04 22:59] LABS: CREATININE 4.42 mg/dl (0.61-1.24)
[2016-08-04 23:01] LABS: CALCIUM 8.2 mg/dl (8.4-10.2)
[2016-08-05] VITALS (46 sets, daily range): BP systolic 82–197; BP diastolic 30–95; PULSE 74–97; RESP 16–30
--- NOTE | 2016-08-05 01:10 | RADRPT ---
PROCEDURE: XR Chest. CLINICAL INDICATION: Right chest tube with concern for pneumothorax. Surgical changes in the right hemithorax. TECHNIQUE: Single frontal view of the chest was obtained COMPARISON: Chest dated 07/29/2016. FINDINGS: Left anterior chest wall dual chamber cardiac pacer again seen, without significant coverer inte rval. New right chest tube in place with surgical changes over the lateral right lung base. Previously se en right pleural effusion is decreased, now with scattered patchy fluid at the right mid lung and ree ng base. There is no definite pneumothorax on the right. The left lung remains clear. There is no definite pneumothorax. IMPRESSION: 1. Surgical changes on the right with new right chest tube and decreased pleural fluid. 2. There is no definite pneumothorax on the right. RPTAT: [facility] Physician Lee Date Time Electronically viewed and signed by Physician Lee on 08/05/2016 01:10 RS/
[2016-08-05] MEDS ORDERED: DEXTROSE 5% IV SCH (01:30)
[2016-08-05] MEDS ORDERED: NOREPINEPHRINE IV SCH (01:30)
[2016-08-05] MEDS: ACCUCHECK 2 AM XX SCH (02:00)
[2016-08-05] MEDS: HYDROmorphONE (0.2 MG/ML) 10ML SYG IV PRN ×2 (02:09→02:55)
--- NOTE | 2016-08-05 04:34 | OPR ---
DATE OF OPERATION: PREOPERATIVE DIAGNOSIS: Right pleural effusion. POSTOPERATIVE DIAGNOSIS: Right pleural effusion. OPERATION PERFORMED: 1. Right thoracotomy, pulmonary decortication. 2. Right diagnostic video-assisted thoracoscopy. 3. Bronchoscopy. SURGEON: Lilia Martinez MD ANESTHESIA: General. ESTIMATED BLOOD LOSS: 100 mL. INFORMED CONSENT: Risks, benefits, complications, and alternative therapies explained to the patien t, consent obtained. The high-risk nature of the operation was fully explained and stressed. INDICATIONS: This is a patient who was admitted with a right-sided pleural effusion. Attempts were made to drain this percutaneously; however, they were unsuccessful. The patient was discussed with the referring physicians and the team and we decided to proceed with thoracoscopy, possible thoraco danay, decortication and evacuation of fluid. The patient currently is being treated for end-stage r enal disease and has a prior history of coronary artery disease. OPERATIVE TECHNIQUE: The patient was taken to the operating room. After induction of general anest hesia, a bronchoscopy was done. No evidence of any endobronchial lesions was noted. The patient wa s placed in left lateral decubitus position. Axillary roll was placed. All the pressure points wer e padded, prepped and draped in the usual sterile fashion. Timeout was called and I started. I made a 1 cm incision in the 7th intercostal space mid axillary line. Incision was taken down to t he subcutaneous tissue which was then opened using electrocautery. A 12 [place] trocar was advanced into the pleural cavity. Large amounts of old clotted blood were noted with a thick peel. A second incision was made posteriorly 5 mm in length at the tip of the scapula and a third incision was mad e below the right nipple. Three-port thoracoscopy was done. Large amounts of old clotted blood were suctioned and removed mechanically. The peel at some points appeared to be very adherent to the ch est wall, so I decided to proceed with a mini thoracotomy. I made a 10 cm incision in the 6th and 7th intercostal space. The patient was thin Incision was ta latonya down to the subcutaneous tissue which was then opened using electrocautery. The latissimus dors i muscle was not incised and we just the serratus anterior muscles through its fibers and entered the pleural cavity. Large amounts of peel were noted. No evidence of any active bleeding w as noted, but the patient had some slow oozing throughout the case. The patient dropped his pressur e momentary and had to be given packed RBCs which he responded to quickly. Decortication continued. The peel was removed. The lung expanded. No evidence of any bleeding was noted. The raw surface of the chest wall was treated using FloSeal and electrocautery. Two chest tubes, 36 straight and 36 right angle, were placed into the pleural cavity, brought out through a lo wer stab wound, and secured to the skin using silk sutures. ____ reapproximated using a #2 Vicryl s uture [id number] x4. Serratus anterior muscle was reapproximated using #1 Vicryl suture in ru nning fashion. Subcutaneous tissues were irrigated again and closed using 0 Vicryl suture for the d eep and willis for the skin. The pleural cavity had been copiously irrigated using antibiotic caorlynn ution. All needle counts and sponge counts were correct, according to the nurses and the chief ultrasound technologist before closing the chest. The patient was transferred to the recovery room. Dictated By: LILIA SOTO/MANJIT Conf#: [id number] DID#: [id number]
[2016-08-05 06:35] LABS: ADD SCAN DIFF NO
[2016-08-05 06:42] LABS: ABNORMAL IP MESSAGE 1; BASOPHILS % 0.4 % (0.0-2.0); EOSINOPHILS # 0.1 10^3/ul (0.0-0.5); EOSINOPHILS % 0.6 % (0.0-7.0); HEMATOCRIT 24.9 % (42.0-52.0); HEMOGLOBIN 8.6 g/dl (14.0-18.0); LYMPHOCYTES # 0.6 10^3/ul (0.8-2.9); LYMPHOCYTES % 5.6 % (15.0-51.0); MEAN CORPUSCULAR HEMOGLOBIN 31.6 pg (29.0-33.0); MEAN CORPUSCULAR HGB CONC 34.5 g/dl (32.0-37.0); MEAN CORPUSCULAR VOLUME 91.5 fl (82.0-101.0); MEAN PLATELET VOLUME 10.7 fl (7.4-10.4); MONOCYTES % 10.4 % (0.0-11.0); NEUTROPHIL # 8.2 10^3/ul (1.6-7.5); NEUTROPHILS % 82.3 % (39.0-77.0); PLATELET COUNT 189 10^3/UL (140-415); RED BLOOD COUNT 2.72 10^6/ul (4.70-6.10); RED CELL DISTRIBUTION WIDTH 17.3 % (11.5-14.5); WHITE BLOOD COUNT 9.9 10^3/ul (4.8-10.8)
[2016-08-05 06:57] LABS: ALBUMIN 3.2 g/dl (3.3-4.9); POTASSIUM 4.3 mmol/L (3.5-5.1)
[2016-08-05 06:59] LABS: CREATININE 5.05 mg/dl (0.61-1.24)
[2016-08-05 07:00] LABS: ALBUMIN/GLOBULIN RATIO 1.1; BILIRUBIN,DIRECT 1.1 mg/dl (0.00-0.20); BILIRUBIN,INDIRECT 1.3 mg/dl (0-1.1); BILIRUBIN,TOTAL 2.4 mg/dl (0.2-1.3); TOTAL PROTEIN 6.1 g/dl (6.1-8.1)
[2016-08-05 07:01] LABS: CALCIUM 7.9 mg/dl (8.4-10.2)
[2016-08-05] MEDS: Insulin NOVOLOG SS MILD Algorithm (SS with meals and bedtime) SC SCH ×3 (07:30→17:05)
[2016-08-05] MEDS: INSULIN ASPART [NOVOLOG] 3 ML PEN SC SCH ×2 (08:00→11:30)
[2016-08-05] MEDS: NIFEdipine (XL) 60 MG TAB PO SCH ×2 (09:00→23:54)
[2016-08-05] MEDS: METOPROLOL 100 MG TAB GTB SCH ×2 (09:00→21:53)
[2016-08-05] MEDS: BENAZEPRIL 40 MG TAB PO SCH ×2 (09:00→21:58)
[2016-08-05] MEDS: HYDROmorphONE 1 MG/ML SYG IV PRN ×4 (09:54→22:16)
[2016-08-05] MEDS: PANTOPRAZOLE (EC) 40 MG TAB PO SCH (10:33)
[2016-08-05] MEDS: PYRIDOXINE 50 MG TAB PO SCH (10:34)
[2016-08-05] MEDS: RIFAMPIN 300 MG CAP PO SCH (10:34)
[2016-08-05] MEDS: CALCIUM ACETATE 667 MG CAP PO SCH ×4 (10:34→22:00)
[2016-08-05] MEDS: FAMOTIDINE 20 MG TAB PO SCH (10:34)
[2016-08-05] MEDS: ISONIAZID 300 MG TAB PO SCH (10:34)
[2016-08-05] MEDS: CHOLECALCIFEROL 400 UNITS TAB PO SCH (10:35)
[2016-08-05] MEDS: SEVELAMER CARBONATE 0.8 GM PKT PO SCH ×4 (10:35→22:01)
[2016-08-05] MEDS: FERROUS SULFATE (EC) 325 MG TAB PO SCH ×2 (10:35→21:57)
--- NOTE | 2016-08-05 10:57 | CONS ---
Date/Time of Note Date/Time of Note DATE: 08/05/16 TIME: 10:55 Assessment/Plan Assessment/Plan Additional Assessment/Plan Chest x-ray was reviewed from yesterday post procedure which is appearing markedly improved with marked reduction in right pleural effusion. Assessment recommendations; 1. Patient admitted with recurrent right pleural effusion which is currently being evaluated for possibly pulmonary tuberculosis. Patient currently on antituberculosis medication. 2. Cardiomyopathy. 3. History of renal failure, patient on hemodialysis. 4. History of diabetes hypertension. 5. Prior history of coronary artery disease status post bypass surgery. Continue current treatment. Consultation Date/Type/Reason Admit Date/Time Jul 24, 2016 at 12:53 Initial Consult Date 07/25/16 Type of Consultation: Pulmonary Referring Provider: EVA COX MD 24 HR Interval Summary Free Text/Dictation Patient condition stable. Underwent right-sided VATS procedure yesterday completely very minimal chest pain. Denies any coughing, wheezing hemoptysis. Exam; elderly male, awake alert currently in no distress. Exam/Review of Systems Vital Signs Vitals Vital Signs Date Time Temp Pulse Resp B/P Pulse Ox O2 Delivery O2 Flow Rate FiO2 08/05/16 09:00 96 21 116/38 96 Nasal Cannula 2.0 08/05/16 08:00 99.1 08/02/16 05:54 21 Intake and Output 08/04/16 08/04/16 08/05/16 15:00 23:00 07:00 Intake Total 1400 ml 970 ml 550 ml Output Total 2400 ml 110 ml 280 ml Balance -1000 ml 860 ml 270 ml Exam HEENT exam is; supple neck, no JVD. No lymphadenopathy. Midline trachea. No thyromegaly. Patient has fair dentition. No neck masses. Chest exam is; right side chest tube in place. Lungs are clear to auscultation. S1-S2 audible, no murmurs. Regular rhythm. There is a well- healed sternal scar. Abdomen exam is; soft, nontender. No organomegaly. Bowel sounds are audible. Extremity exam; no peripheral edema. [employer] exam is; no focal deficit. Results Result Diagram: 08/05/16 0609 08/05/16 0609 Results 24 hrs Laboratory Tests Test 08/04/16 11:47 08/04/16 16:53 08/04/16 22:30 08/05/16 06:07 Bedside Glucose 159 126 174 White Blood Count 9.3 Red Blood Count 3.31 #L Hemoglobin 10.2 #L Hematocrit 30.3 #L Mean Corpuscular Volume 91.5 Mean Corpuscular Hemoglobin 30.8 Mean Corpuscular Hemoglobin Concent 33.7 Red Cell Distribution Width 15.3 H Platelet Count 109 #L Mean Platelet Volume 10.6 H Neutrophils % 80.3 H Lymphocytes % 8.7 L Monocytes % 9.0 Eosinophils % 1.0 Basophils % 0.4 Nucleated Red Blood Cells % 0.0 Neutrophils # 7.5 Lymphocytes # 0.8 Monocytes # 0.8 Eosinophils # 0.1 Basophils # 0.0 Nucleated Red Blood Cells # 0.0 Prothrombin Time 14.0 Prothrombin Time Ratio 1.1 INR International Normalized Ratio 1.08 Sodium Level 136 Potassium Level 4.0 Chloride Level 99 Carbon Dioxide Level 25 Anion Gap 16 Blood Urea Nitrogen 35 #H Creatinine 4.42 #H Glucose Level 149 # Calcium Level 8.2 L Test 08/05/16 06:09 White Blood Count 9.9 Red Blood Count 2.72 L Hemoglobin 8.6 L Hematocrit 24.9 L Mean Corpuscular Volume 91.5 Mean Corpuscular Hemoglobin 31.6 Mean Corpuscular Hemoglobin Concent 34.5 Red Cell Distribution Width 17.3 H Platelet Count 189 # Mean Platelet Volume 10.7 H Neutrophils % 82.3 H Lymphocytes % 5.6 L Monocytes % 10.4 Eosinophils % 0.6 Basophils % 0.4 Nucleated Red Blood Cells % 0.0 Neutrophils # 8.2 H Lymphocytes # 0.6 L Monocytes # 1.0 H Eosinophils # 0.1 Basophils # 0.0 Nucleated Red Blood Cells # 0.0 Sodium Level 137 Potassium Level 4.3 Chloride Level 101 Carbon Dioxide Level 27 Anion Gap 13 Blood Urea Nitrogen 38 H Creatinine 5.05 H Glucose Level 163 Calcium Level 7.9 L Total Bilirubin 2.4 H Direct Bilirubin 1.10 H Indirect Bilirubin 1.3 H Aspartate Amino Transf (AST/SGOT) 50 H Alanine Aminotransferase (ALT/SGPT) 19 Alkaline Phosphatase 99 Total Protein 6.1 Albumin 3.2 L Globulin 2.90 Albumin/Globulin Ratio 1.10 Medications Medications Current Medications Aspirin (Halfprin) 81 mg DAILY PO Last administered on 07/26/16t 08:39; Admin Dose 81 MG; Start 07/25/16 at 09:00; Status Future Hold Atorvastatin Calcium (Lipitor) 10 mg QHS PO Last administered on 08/03/16 21:14 ; Admin Dose 10 MG; Start 07/24/16 at 21:00 Benazepril HCl (Lotensin) 40 mg BID PO Last administered on 08/04/16 08:58; Admin Dose 40 MG; Start 07/24/16 at 21:00 Cholecalciferol (Vitamin D) 400 units DAILY PO Last administered on 08/05/16 10 :35; Admin Dose 400 UNITS; Start 07/25/16 at 09:00 Famotidine (Pepcid) 20 mg DAILY PO Last administered on 08/05/16 10:34; Admin Dose 20 MG; Start 07/25/16 at 09:00 Ferrous Sulfate (Ferrous Sulfate (Ec)) 325 mg BID PO Last administered on 10:35; Admin Dose 325 MG; Start 07/24/16 at 21:00 Acetaminophen/ Hydrocodone Bitart ([place] (5/325)) 1 tab Q4H PRN PO PAIN Last administered on 08/03/16 12:30; Admin Dose 1 TAB; Start 07/24/16 at 17:00 Insulin Glargine (Lantus) 6 unit DAILY@20 SC Last administered on 08/03/16 21: 17; Admin Dose 6 UNIT; Start 07/24/16 at 20:00 Isoniazid (Isoniazid) 300 mg DAILY PO Last administered on 08/05/16 10:34; Admin Dose 300 MG; Start 07/24/16 at 15:30 Nifedipine (Procardia Xl) 60 mg BID PO Last administered on 08/04/16 08:59; Admin Dose 60 MG; Start 07/24/16 at 21:00 Pyridoxine HCl (Vitamin B6) 50 mg DAILY PO Last administered on 08/05/16 10:34 ; Admin Dose 50 MG; Start 07/25/16 at 09:00 Rifampin (Rifampin) 600 mg DAILY PO Last administered on 08/05/16 10:34; Admin Dose 600 MG; Start 07/25/16 at 09:00 Miscellaneous Information 1 ea NOTE XX ; Start 07/24/16 at 16:00 Glucose (Glutose) 15 gm Q15M PRN PO DECREASED GLUCOSE; Start 07/24/16 at 16:00 Glucose (Glutose) 22.5 gm Q15M PRN PO DECREASED GLUCOSE; Start 07/24/16 at 16: 00 Dextrose (D50w Syringe) 25 ml Q15M PRN IV DECREASED GLUCOSE; Start 07/24/16 at 16:00 Dextrose (D50w Syringe) 50 ml Q15M PRN IV DECREASED GLUCOSE; Start 07/24/16 at 16:00 Glucagon (Glucagen) 1 mg Q15M PRN IM DECREASED GLUCOSE; Start 07/24/16 at 16:00 Glucose (Glutose) 15 gm Q15M PRN BUCCAL DECREASED GLUCOSE; Start 07/24/16 at 16 :00 Ondansetron HCl (Zofran Inj) 4 mg Q4 PRN IV nausea Last administered on 10:53; Admin Dose 4 MG; Start 07/24/16 at 17:00 Metoclopramide HCl (Reglan) 5 mg Q4H PRN IV NAUSEA Last administered on 10:46; Admin Dose 5 MG; Start 07/24/16 at 22:30 Diagnostic Test (Pha) (Accu-Chek) 1 ea 02 XX Last administered on 07/28/16 02: 54; Admin Dose 1 EA; Start 07/26/16 at 12:00 Metoprolol Tartrate (Lopressor) 100 mg BID GTB Last administered on 08/04/16 08 :57; Admin Dose 100 MG; Start 07/26/16 at 13:30 Clonidine HCl (Catapres-Tts 2 Patch) 1 patch Q7D TRANSDERM Last administered on 08/03/16 06:32; Admin Dose 1 PATCH; Start 07/27/16 at 07:00 Pantoprazole (Protonix Tab) 40 mg DAILY@06 PO Last administered on 08/05/16 10: 33; Admin Dose 40 MG; Start 07/28/16 at 06:00 Hydralazine HCl (Apresoline) 20 mg Q4 PRN IV ELEVATED BLOOD PRESSURE Last administered on 08/04/16 16:35; Admin Dose 20 MG; Start 07/28/16 at 02:00 Doxazosin Mesylate (Cardura) 2 mg HS PO Last administered on 08/03/16 21:15; Admin Dose 2 MG; Start 07/28/16 at 21:00 Polyethylene Glycol (Miralax) 17 gm DAILY PRN GTB CONSTIPATION Last administered on 07/28/16 20:22; Admin Dose 17 GM; Start 07/28/16 at 19:30 Lorazepam (Ativan) 1 mg Q4H PRN IV anxiety Last administered on 07/30/16 20:48 ; Admin Dose 1 MG; Start 07/29/16 at 06:30 Ethambutol HCl (Myambutol) 900 mg TuThSa@20 PO Last administered on 07/31/16 21:07; Admin Dose 900 MG; Start 07/31/16 at 20:00 Pyrazinamide (Pyrazinamide) 1,250 mg TuThSa@20 PO ; Start 07/31/16 at 20:00 Hydromorphone HCl (Dilaudid) 1 mg Q2H PRN IV pain Last administered on 09:54; Admin Dose 1 MG; Start 08/02/16 at 19:00 Hydralazine HCl 25 mg 25 mg Q8 PO ; Start 08/04/16 at 22:00 Norepinephrine/ Dextrose (Levophed/D5W) 500 ml @ 0 mls/hr TITRATE IV Last administered on 08/05/16 02:49; Admin Dose 0 MLS/HR; Start 08/05/16 at 01:30 BOONE POLO Aug 05, 2016 10:57
--- NOTE | 2016-08-05 13:47 | PN ---
Date/Time of Note Date/Time of Note DATE: 08/05/16 TIME: 13:44 Assessment/Plan VTE Prophylaxis VTE Prophylaxis Intervention: SCD's Lines/Catheters IV Catheter Type (from [facility]): AV FISTULA Urinary Cath still in place: No Assessment/Plan Chief Complaint/Hosp Course Assessment and plan: - Recurrent right pleural effusion consistent with empyema, cavitary lesions, status post right thoracotomy and pulmonary decortication on 08/04. -Hemoptysis, resolved. Dr. Dale is following in pulmonology consultation. Dr. Caitlin balderas is following an infection disease consultation. -Right former chest tube site bleeding, resolved. Dr. Martinez is following in thoracic surgery consultation. -Anemia of acute blood loss, patient had bleeding from the right femoral catheter as well as chest tube site on admission, status post blood transfusion , continue to monitor hemoglobin and hematocrit. Dr. Martinez is following in hematology consultation. 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 - End-stage renal disease, continue hemodialysis. Dr. Saunders is following in nephrology consultation. - Diabetes mellitus type 2, continue Lantus, pre-meal NovoLog and NovoLog per mild algorithm sliding scale. - Hypertension. Dr. De Santiago is following and cardiology consultation. Continue benazepril metoprolol hydralazine Procardia - Coronary artery disease, status post coronary artery bypass graft, s/p percutaneous transluminal coronary angioplasty and stent placement to left main and left anterior descending in 2014. - Permanent pacemaker. No acute issues. - Dyslipidemia. Continue Lipitor. Further recommendations based on clinical course. Plan of care discussed with Dr. Price. Problems: Subjective 24 Hr Interval Summary Free Text/Dictation Patient status post right thoracotomy, awake alert, complains of pain, denies nausea vomiting. Exam/Review of Systems Vital Signs Vitals Vital Signs Date Time Temp Pulse Resp B/P Pulse Ox O2 Delivery O2 Flow Rate FiO2 08/05/16 12:00 98.8 96 22 90/36 98 Nasal Cannula 08/05/16 11:00 2.0 08/02/16 05:54 21 Intake and Output 08/04/16 08/04/16 08/05/16 15:00 23:00 07:00 Intake Total 1400 ml 970 ml 550 ml Output Total 2400 ml 110 ml 280 ml Balance -1000 ml 860 ml 270 ml Exam Constitutional: alert, oriented Psych: no complaints Head: atraumatic, normocephalic ENMT: nl external ears & nose Neck: non-tender, supple Respiratory: clear to auscultation, normal air movement Cardiovascular: other (Left chest permanent pacemaker), regular rate and rhythm Gastrointestinal: bowel sounds, soft Extremities: normal pulses 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 R CT Results Result Diagram: 08/05/16 0609 08/05/16 0609 Results 24 hrs Laboratory Tests Test 08/04/16 16:53 08/04/16 22:30 08/05/16 06:07 08/05/16 06:09 Bedside Glucose 126 174 White Blood Count 9.3 9.9 Red Blood Count 3.31 #L 2.72 L Hemoglobin 10.2 #L 8.6 L Hematocrit 30.3 #L 24.9 L Mean Corpuscular Volume 91.5 91.5 Mean Corpuscular Hemoglobin 30.8 31.6 Mean Corpuscular Hemoglobin Concent 33.7 34.5 Red Cell Distribution Width 15.3 H 17.3 H Platelet Count 109 #L 189 # Mean Platelet Volume 10.6 H 10.7 H Neutrophils % 80.3 H 82.3 H Lymphocytes % 8.7 L 5.6 L Monocytes % 9.0 10.4 Eosinophils % 1.0 0.6 Basophils % 0.4 0.4 Nucleated Red Blood Cells % 0.0 0.0 Neutrophils # 7.5 8.2 H Lymphocytes # 0.8 0.6 L Monocytes # 0.8 1.0 H Eosinophils # 0.1 0.1 Basophils # 0.0 0.0 Nucleated Red Blood Cells # 0.0 0.0 Prothrombin Time 14.0 Prothrombin Time Ratio 1.1 INR International Normalized Ratio 1.08 Sodium Level 136 137 Potassium Level 4.0 4.3 Chloride Level 99 101 Carbon Dioxide Level 25 27 Anion Gap 16 13 Blood Urea Nitrogen 35 #H 38 H Creatinine 4.42 #H 5.05 H Glucose Level 149 # 163 Calcium Level 8.2 L 7.9 L Total Bilirubin 2.4 H Direct Bilirubin 1.10 H Indirect Bilirubin 1.3 H Aspartate Amino Transf (AST/SGOT) 50 H Alanine Aminotransferase (ALT/SGPT) 19 Alkaline Phosphatase 99 Total Protein 6.1 Albumin 3.2 L Globulin 2.90 Albumin/Globulin Ratio 1.10 Test 08/05/16 12:01 Bedside Glucose 167 Medications Medications Current Medications Aspirin (Halfprin) 81 mg DAILY PO Last administered on 07/26/16 08:39; Admin Dose 81 MG; Start 07/25/16 at 09:00; Status Future Hold Atorvastatin Calcium (Lipitor) 10 mg QHS PO Last administered on 08/03/16 21:14 ; Admin Dose 10 MG; Start 07/24/16 at 21:00 Benazepril HCl (Lotensin) 40 mg BID PO Last administered on 08/04/16 08:58; Admin Dose 40 MG; Start 07/24/16 at 21:00 Cholecalciferol (Vitamin D) 400 units DAILY PO Last administered on 08/05/16 10 :35; Admin Dose 400 UNITS; Start 07/25/16 at 09:00 Famotidine (Pepcid) 20 mg DAILY PO Last administered on 08/05/16 10:34; Admin Dose 20 MG; Start 07/25/16 at 09:00 Ferrous Sulfate (Ferrous Sulfate (Ec)) 325 mg BID PO Last administered on 10:35; Admin Dose 325 MG; Start 07/24/16 at 21:00 Acetaminophen/ Hydrocodone Bitart ([place] (5/325)) 1 tab Q4H PRN PO PAIN Last administered on 08/03/16 12:30; Admin Dose 1 TAB; Start 07/24/16 at 17:00 Insulin Glargine (Lantus) 6 unit DAILY@20 SC Last administered on 08/03/16 21: 17; Admin Dose 6 UNIT; Start 07/24/16 at 20:00 Isoniazid (Isoniazid) 300 mg DAILY PO Last administered on 08/05/16 10:34; Admin Dose 300 MG; Start 07/24/16 at 15:30 Nifedipine (Procardia Xl) 60 mg BID PO Last administered on 08/04/16 08:59; Admin Dose 60 MG; Start 07/24/16 at 21:00 Pyridoxine HCl (Vitamin B6) 50 mg DAILY PO Last administered on 08/05/16 10:34 ; Admin Dose 50 MG; Start 07/25/16 at 09:00 Rifampin (Rifampin) 600 mg DAILY PO Last administered on 08/05/16 10:34; Admin Dose 600 MG; Start 07/25/16 at 09:00 Miscellaneous Information 1 ea NOTE XX ; Start 07/24/16 at 16:00 Glucose (Glutose) 15 gm Q15M PRN PO DECREASED GLUCOSE; Start 07/24/16 at 16:00 Glucose (Glutose) 22.5 gm Q15M PRN PO DECREASED GLUCOSE; Start 07/24/16 at 16: 00 Dextrose (D50w Syringe) 25 ml Q15M PRN IV DECREASED GLUCOSE; Start 07/24/16 at 16:00 Dextrose (D50w Syringe) 50 ml Q15M PRN IV DECREASED GLUCOSE; Start 07/24/16 at 16:00 Glucagon (Glucagen) 1 mg Q15M PRN IM DECREASED GLUCOSE; Start 07/24/16 at 16:00 Glucose (Glutose) 15 gm Q15M PRN BUCCAL DECREASED GLUCOSE; Start 07/24/16 at 16 :00 Ondansetron HCl (Zofran Inj) 4 mg Q4 PRN IV nausea Last administered on 10:53; Admin Dose 4 MG; Start 07/24/16 at 17:00 Metoclopramide HCl (Reglan) 5 mg Q4H PRN IV NAUSEA Last administered on 10:46; Admin Dose 5 MG; Start 07/24/16 at 22:30 Diagnostic Test (Pha) (Accu-Chek) 1 ea 02 XX Last administered on 07/28/16 02: 54; Admin Dose 1 EA; Start 07/26/16 at 12:00 Metoprolol Tartrate (Lopressor) 100 mg BID GTB Last administered on 08/04/16 08 :57; Admin Dose 100 MG; Start 07/26/16 at 13:30 Clonidine HCl (Catapres-Tts 2 Patch) 1 patch Q7D TRANSDERM Last administered on 08/03/16 06:32; Admin Dose 1 PATCH; Start 07/27/16 at 07:00 Pantoprazole (Protonix Tab) 40 mg DAILY@06 PO Last administered on 08/05/16 10: 33; Admin Dose 40 MG; Start 07/28/16 at 06:00 Hydralazine HCl (Apresoline) 20 mg Q4 PRN IV ELEVATED BLOOD PRESSURE Last administered on 08/04/16 16:35; Admin Dose 20 MG; Start 07/28/16 at 02:00 Doxazosin Mesylate (Cardura) 2 mg HS PO Last administered on 08/03/16 21:15; Admin Dose 2 MG; Start 07/28/16 at 21:00 Polyethylene Glycol (Miralax) 17 gm DAILY PRN GTB CONSTIPATION Last administered on 07/28/16 20:22; Admin Dose 17 GM; Start 07/28/16 at 19:30 Lorazepam (Ativan) 1 mg Q4H PRN IV anxiety Last administered on 07/30/16 20:48 ; Admin Dose 1 MG; Start 07/29/16 at 06:30 Ethambutol HCl (Myambutol) 900 mg TuThSa@20 PO Last administered on 07/31/16 21:07; Admin Dose 900 MG; Start 07/31/16 at 20:00 Pyrazinamide (Pyrazinamide) 1,250 mg TuThSa@20 PO ; Start 07/31/16 at 20:00 Hydromorphone HCl (Dilaudid) 1 mg Q2H PRN IV pain Last administered on 09:54; Admin Dose 1 MG; Start 08/02/16 at 19:00 Hydralazine HCl 25 mg 25 mg Q8 PO ; Start 08/04/16 at 22:00 Norepinephrine/ Dextrose (Levophed/D5W) 500 ml @ 0 mls/hr TITRATE IV Last administered on 08/05/16 02:49; Admin Dose 0 MLS/HR; Start 08/05/16 at 01:30 CECILIA DAMICO Aug 05, 2016 13:47
[2016-08-05 15:09] LABS: ADD SCAN DIFF NO
[2016-08-05 15:11] LABS: ABNORMAL IP MESSAGE 1; BASOPHILS % 0.3 % (0.0-2.0); EOSINOPHILS % 0.2 % (0.0-7.0); HEMOGLOBIN 8.6 g/dl (14.0-18.0); LYMPHOCYTES # 0.5 10^3/ul (0.8-2.9); LYMPHOCYTES % 3.3 % (15.0-51.0); MEAN CORPUSCULAR HEMOGLOBIN 31.5 pg (29.0-33.0); MEAN CORPUSCULAR HGB CONC 34.4 g/dl (32.0-37.0); MEAN CORPUSCULAR VOLUME 91.6 fl (82.0-101.0); MEAN PLATELET VOLUME 10.4 fl (7.4-10.4); MONOCYTE # 1.5 10^3/ul (0.3-0.9); NEUTROPHIL # 11.6 10^3/ul (1.6-7.5); NEUTROPHILS % 84.6 % (39.0-77.0); PLATELET COUNT 213 10^3/UL (140-415); RED BLOOD COUNT 2.73 10^6/ul (4.70-6.10); RED CELL DISTRIBUTION WIDTH 17.7 % (11.5-14.5); WHITE BLOOD COUNT 13.8 10^3/ul (4.8-10.8)
--- NOTE | 2016-08-05 19:00 | CONS ---
Date/Time of Note Date/Time of Note DATE: 08/05/16 TIME: 18:59 Assessment/Plan Assessment/Plan Additional Assessment/Plan 1. Abnormal electrocardiogram, assess for acute coronary syndrome with no current chest pain and recently negative stress test.-negative troponin x 3 2. History of a percutaneous transluminal coronary angioplasty and stent placement to left main and left anterior descending in 2014. 3. History of coronary artery bypass graft surgery - no CP now. 4. Video assisted thoracoscopic surgery pleurodesis with leakage from the chest tube site- s/p VATS surgery today - tolerated procedure well. 5. Shortness of breath. 6. End-stage renal disease on hemodialysis - RX as needed - HD planned today. 7. Tuberculosis, on therapy. 8. Hypertension-currently well controled 9. Diabetes mellitus. 10. Dyslipidemia. 11. Anemia-worsening s/p transfusion 12.Empyema/cavitary lesions by CT Consultation Date/Type/Reason Admit Date/Time Jul 24, 2016 at 12:53 Initial Consult Date 07/25/16 Type of Consultation: Pulmonary Referring Provider: EVA COX MD 24 HR Interval Summary Free Text/Dictation s/p surgical VATS Rx - tolerated procedure - surgical team will follow. ROS: No fever, no chills, no nausea, no vomiting, no diarrhea/constipation No recent weight changes No chest pain, no PND, no orthopnea No dizziness, blurred vision No thirst, no heat or cold intolerance Exam/Review of Systems Vital Signs Vitals Vital Signs Date Time Temp Pulse Resp B/P Pulse Ox O2 Delivery O2 Flow Rate FiO2 08/05/16 18:18 98.2 87 18 104/53 96 08/05/16 17:00 Nasal Cannula 2.0 08/02/16 05:54 21 Intake and Output 08/04/16 08/04/16 08/05/16 15:00 23:00 07:00 Intake Total 1400 ml 970 ml 550 ml Output Total 2400 ml 110 ml 280 ml Balance -1000 ml 860 ml 270 ml Exam General: WN/WD/NAD, AOx 3 HEENT: Unicetric/atraumatic/EOMI (follow commands) NECK: JVD elevated, no thyromegaly Lymph: no lymphadenopathy HEART: regular with no S3, II/ systolic murmur at apex LUNGS: Coarse sounds, post VATS ABD: soft, NT, ND, +BS : Intact Neuro: non focal SKIN: chronic changes EXT: trace edema Results Result Diagram: 08/05/16 1450 08/05/16 0609 Results 24 hrs Laboratory Tests Test 08/04/16 22:30 08/05/16 06:07 08/05/16 06:09 08/05/16 12:01 White Blood Count 9.3 9.9 Red Blood Count 3.31 #L 2.72 L Hemoglobin 10.2 #L 8.6 L Hematocrit 30.3 #L 24.9 L Mean Corpuscular Volume 91.5 91.5 Mean Corpuscular Hemoglobin 30.8 31.6 Mean Corpuscular Hemoglobin Concent 33.7 34.5 Red Cell Distribution Width 15.3 H 17.3 H Platelet Count 109 #L 189 # Mean Platelet Volume 10.6 H 10.7 H Neutrophils % 80.3 H 82.3 H Lymphocytes % 8.7 L 5.6 L Monocytes % 9.0 10.4 Eosinophils % 1.0 0.6 Basophils % 0.4 0.4 Nucleated Red Blood Cells % 0.0 0.0 Neutrophils # 7.5 8.2 H Lymphocytes # 0.8 0.6 L Monocytes # 0.8 1.0 H Eosinophils # 0.1 0.1 Basophils # 0.0 0.0 Nucleated Red Blood Cells # 0.0 0.0 Prothrombin Time 14.0 Prothrombin Time Ratio 1.1 INR International Normalized Ratio 1.08 Sodium Level 136 137 Potassium Level 4.0 4.3 Chloride Level 99 101 Carbon Dioxide Level 25 27 Anion Gap 16 13 Blood Urea Nitrogen 35 #H 38 H Creatinine 4.42 #H 5.05 H Glucose Level 149 # 163 Calcium Level 8.2 L 7.9 L Bedside Glucose 174 167 Total Bilirubin 2.4 H Direct Bilirubin 1.10 H Indirect Bilirubin 1.3 H Aspartate Amino Transf (AST/SGOT) 50 H Alanine Aminotransferase (ALT/SGPT) 19 Alkaline Phosphatase 99 Total Protein 6.1 Albumin 3.2 L Globulin 2.90 Albumin/Globulin Ratio 1.10 Test 08/05/16 14:50 White Blood Count 13.8 #H Red Blood Count 2.73 L Hemoglobin 8.6 L Hematocrit 25.0 L Mean Corpuscular Volume 91.6 Mean Corpuscular Hemoglobin 31.5 Mean Corpuscular Hemoglobin Concent 34.4 Red Cell Distribution Width 17.7 H Platelet Count 213 Mean Platelet Volume 10.4 Neutrophils % 84.6 H Lymphocytes % 3.3 L Monocytes % 11.0 Eosinophils % 0.2 Basophils % 0.3 Nucleated Red Blood Cells % 0.0 Neutrophils # 11.6 H Lymphocytes # 0.5 L Monocytes # 1.5 H Eosinophils # 0.0 Basophils # 0.0 Nucleated Red Blood Cells # 0.0 Medications Medications Current Medications Aspirin (Halfprin) 81 mg DAILY PO Last administered on 07/26/16 08:39; Admin Dose 81 MG; Start 07/25/16 at 09:00; Status Future Hold Atorvastatin Calcium (Lipitor) 10 mg QHS PO Last administered on 08/03/16 21:14 ; Admin Dose 10 MG; Start 07/24/16 at 21:00 Benazepril HCl (Lotensin) 40 mg BID PO Last administered on 08/04/16 08:58; Admin Dose 40 MG; Start 07/24/16 at 21:00 Cholecalciferol (Vitamin D) 400 units DAILY PO Last administered on 08/05/16 10 :35; Admin Dose 400 UNITS; Start 07/25/16 at 09:00 Famotidine (Pepcid) 20 mg DAILY PO Last administered on 08/05/16 10:34; Admin Dose 20 MG; Start 07/25/16 at 09:00 Ferrous Sulfate (Ferrous Sulfate (Ec)) 325 mg BID PO Last administered on 10:35; Admin Dose 325 MG; Start 07/24/16 at 21:00 Acetaminophen/ Hydrocodone Bitart ([place] (5/325)) 1 tab Q4H PRN PO PAIN Last administered on 08/03/16 12:30; Admin Dose 1 TAB; Start 07/24/16 at 17:00 Insulin Glargine (Lantus) 6 unit DAILY@20 SC Last administered on 08/03/16 21: 17; Admin Dose 6 UNIT; Start 07/24/16 at 20:00 Isoniazid (Isoniazid) 300 mg DAILY PO Last administered on 08/05/16 10:34; Admin Dose 300 MG; Start 07/24/16 at 15:30 Nifedipine (Procardia Xl) 60 mg BID PO Last administered on 08/04/16 08:59; Admin Dose 60 MG; Start 07/24/16 at 21:00 Pyridoxine HCl (Vitamin B6) 50 mg DAILY PO Last administered on 08/05/16 10:34 ; Admin Dose 50 MG; Start 07/25/16 at 09:00 Rifampin (Rifampin) 600 mg DAILY PO Last administered on 08/05/16 10:34; Admin Dose 600 MG; Start 07/25/16 at 09:00 Miscellaneous Information 1 ea NOTE XX ; Start 07/24/16 at 16:00 Glucose (Glutose) 15 gm Q15M PRN PO DECREASED GLUCOSE; Start 07/24/16 at 16:00 Glucose (Glutose) 22.5 gm Q15M PRN PO DECREASED GLUCOSE; Start 07/24/16 at 16: 00 Dextrose (D50w Syringe) 25 ml Q15M PRN IV DECREASED GLUCOSE; Start 07/24/16 at 16:00 Dextrose (D50w Syringe) 50 ml Q15M PRN IV DECREASED GLUCOSE; Start 07/24/16 at 16:00 Glucagon (Glucagen) 1 mg Q15M PRN IM DECREASED GLUCOSE; Start 07/24/16 at 16:00 Glucose (Glutose) 15 gm Q15M PRN BUCCAL DECREASED GLUCOSE; Start 07/24/16 at 16 :00 Ondansetron HCl (Zofran Inj) 4 mg Q4 PRN IV nausea Last administered on 10:53; Admin Dose 4 MG; Start 07/24/16 at 17:00 Metoclopramide HCl (Reglan) 5 mg Q4H PRN IV NAUSEA Last administered on 10:46; Admin Dose 5 MG; Start 07/24/16 at 22:30 Diagnostic Test (Pha) (Accu-Chek) 1 ea 02 XX Last administered on 07/28/16 02: 54; Admin Dose 1 EA; Start 07/26/16 at 12:00 Metoprolol Tartrate (Lopressor) 100 mg BID GTB Last administered on 08/04/16 08 :57; Admin Dose 100 MG; Start 07/26/16 at 13:30 Clonidine HCl (Catapres-Tts 2 Patch) 1 patch Q7D TRANSDERM Last administered on 08/03/16 06:32; Admin Dose 1 PATCH; Start 07/27/16 at 07:00 Pantoprazole (Protonix Tab) 40 mg DAILY@06 PO Last administered on 08/05/16 10: 33; Admin Dose 40 MG; Start 07/28/16 at 06:00 Hydralazine HCl (Apresoline) 20 mg Q4 PRN IV ELEVATED BLOOD PRESSURE Last administered on 08/04/16 16:35; Admin Dose 20 MG; Start 07/28/16 at 02:00 Doxazosin Mesylate (Cardura) 2 mg HS PO Last administered on 08/03/16 21:15; Admin Dose 2 MG; Start 07/28/16 at 21:00 Polyethylene Glycol (Miralax) 17 gm DAILY PRN GTB CONSTIPATION Last administered on 07/28/16 20:22; Admin Dose 17 GM; Start 07/28/16 at 19:30 Lorazepam (Ativan) 1 mg Q4H PRN IV anxiety Last administered on 07/30/16 20:48 ; Admin Dose 1 MG; Start 07/29/16 at 06:30 Ethambutol HCl (Myambutol) 900 mg TuThSa@20 PO Last administered on 07/31/16 21:07; Admin Dose 900 MG; Start 07/31/16 at 20:00 Pyrazinamide (Pyrazinamide) 1,250 mg TuThSa@20 PO ; Start 07/31/16 at 20:00 Hydromorphone HCl (Dilaudid) 1 mg Q2H PRN IV pain Last administered on 14:10; Admin Dose 1 MG; Start 08/02/16 at 19:00 Hydralazine HCl 25 mg 25 mg Q8 PO ; Start 08/04/16 at 22:00 Norepinephrine/ Dextrose (Levophed/D5W) 500 ml @ 0 mls/hr TITRATE IV Last administered on 08/05/16 02:49; Admin Dose 0 MLS/HR; Start 08/05/16 at 01:30 CRIS BERNARD MD Aug 05, 2016 19:00
--- NOTE | 2016-08-05 19:15 | PN ---
Date/Time of Note Date/Time of Note DATE: 08/05/16 TIME: 19:13 Assessment/Plan Lines/Catheters IV Catheter Type (from Nrsg): AV FISTULA Jonas in Place (from Nrsg): Yes Assessment/Plan Chief Complaint/Hosp Course IMPRESSION: Right chest tube site bleeding, which has now subsided completely. Hgb stable Would monitor the hemoglobin levels and stop the antiplatelet. SP VATS Decortication will continue CT sxn monitor HGBl evels Problems: Subjective 24 Hr Interval Summary Constitutional: improved Pain Control: mild Exam/Review of Systems Vital Signs Vitals Vital Signs Date Time Temp Pulse Resp B/P Pulse Ox O2 Delivery O2 Flow Rate FiO2 08/05/16 18:18 98.2 87 18 104/53 96 08/05/16 17:00 Nasal Cannula 2.0 08/02/16 05:54 21 Intake and Output 08/04/16 08/04/16 08/05/16 15:00 23:00 07:00 Intake Total 1400 ml 970 ml 550 ml Output Total 2400 ml 110 ml 280 ml Balance -1000 ml 860 ml 270 ml Exam ENMT: mucosa pink and moist, nl external ears & nose, nl lips & teeth, nl nasal mucosa & septum Neck: non-tender, supple Respiratory: clear to auscultation, normal air movement Cardiovascular: nl pulses, regular rate and rhythm Results Result Diagram: 08/05/16 1450 08/05/16 0609 LILIA FELIZ MD Aug 05, 2016 19:15
--- NOTE | 2016-08-05 21:36 | PN ---
Date/Time of Note Date/Time of Note DATE: 08/05/16 TIME: 21:35 Assessment/Plan VTE Prophylaxis VTE Prophylaxis Intervention: other Lines/Catheters IV [facility]ter Type (from [facility]): AV FISTULA Urinary Cath still in place: Yes Reason Cath still needed: other (indicate) Assessment/Plan Chief Complaint/Hosp Course IMPRESSION: 1. Recurrent pleural effusions. 2. Lung infiltrate./cavitary lesion 3. chronic lung disease. 4. Hypertension. 5. Diabetes mellitus. 6. End-stage renal disease. 7. anemia. 8. cad. 9. Leukocytosis.better 10. ashd 11. PLEURAL EFFUSIN 12. The patient on anti-tuberculosis treatment. 13. 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 PLAN HD 3x wk per pt per id and surgery vats today Problems: Subjective 24 Hr Interval Summary Respiratory: shortness of breath (+) Exam/Review of Systems Vital Signs Vitals Vital Signs Date Time Temp Pulse Resp B/P Pulse Ox O2 Delivery O2 Flow Rate FiO2 08/05/16 20:11 90 18 08/05/16 19:51 97.6 117/53 95 08/05/16 17:00 Nasal Cannula 2.0 08/02/16 05:54 21 Intake and Output 08/04/16 08/04/16 08/05/16 15:00 23:00 07:00 Intake Total 1400 ml 970 ml 550 ml Output Total 2400 ml 110 ml 280 ml Balance -1000 ml 860 ml 270 ml Exam Neck: supple Respiratory: congested cough, diminished breath sounds Cardiovascular: regular rate and rhythm Gastrointestinal: bowel sounds (+), soft Results Result Diagram: 08/05/16 1450 08/05/16 0609 Results 24 hrs Laboratory Tests Test 08/04/16 22:30 08/05/16 06:07 08/05/16 06:09 08/05/16 12:01 White Blood Count 9.3 9.9 Red Blood Count 3.31 #L 2.72 L Hemoglobin 10.2 #L 8.6 L Hematocrit 30.3 #L 24.9 L Mean Corpuscular Volume 91.5 91.5 Mean Corpuscular Hemoglobin 30.8 31.6 Mean Corpuscular Hemoglobin Concent 33.7 34.5 Red Cell Distribution Width 15.3 H 17.3 H Platelet Count 109 #L 189 # Mean Platelet Volume 10.6 H 10.7 H Neutrophils % 80.3 H 82.3 H Lymphocytes % 8.7 L 5.6 L Monocytes % 9.0 10.4 Eosinophils % 1.0 0.6 Basophils % 0.4 0.4 Nucleated Red Blood Cells % 0.0 0.0 Neutrophils # 7.5 8.2 H Lymphocytes # 0.8 0.6 L Monocytes # 0.8 1.0 H Eosinophils # 0.1 0.1 Basophils # 0.0 0.0 Nucleated Red Blood Cells # 0.0 0.0 Prothrombin Time 14.0 Prothrombin Time Ratio 1.1 INR International Normalized Ratio 1.08 Sodium Level 136 137 Potassium Level 4.0 4.3 Chloride Level 99 101 Carbon Dioxide Level 25 27 Anion Gap 16 13 Blood Urea Nitrogen 35 #H 38 H Creatinine 4.42 #H 5.05 H Glucose Level 149 # 163 Calcium Level 8.2 L 7.9 L Bedside Glucose 174 167 Total Bilirubin 2.4 H Direct Bilirubin 1.10 H Indirect Bilirubin 1.3 H Aspartate Amino Transf (AST/SGOT) 50 H Alanine Aminotransferase (ALT/SGPT) 19 Alkaline Phosphatase 99 Total Protein 6.1 Albumin 3.2 L Globulin 2.90 Albumin/Globulin Ratio 1.10 Test 08/05/16 14:50 White Blood Count 13.8 #H Red Blood Count 2.73 L Hemoglobin 8.6 L Hematocrit 25.0 L Mean Corpuscular Volume 91.6 Mean Corpuscular Hemoglobin 31.5 Mean Corpuscular Hemoglobin Concent 34.4 Red Cell Distribution Width 17.7 H Platelet Count 213 Mean Platelet Volume 10.4 Neutrophils % 84.6 H Lymphocytes % 3.3 L Monocytes % 11.0 Eosinophils % 0.2 Basophils % 0.3 Nucleated Red Blood Cells % 0.0 Neutrophils # 11.6 H Lymphocytes # 0.5 L Monocytes # 1.5 H Eosinophils # 0.0 Basophils # 0.0 Nucleated Red Blood Cells # 0.0 Medications Medications Current Medications Aspirin (Halfprin) 81 mg DAILY PO Last administered on 07/26/16 08:39; Admin Dose 81 MG; Start 07/25/16 at 09:00; Status Future Hold Atorvastatin Calcium (Lipitor) 10 mg QHS PO Last administered on 08/03/16 21:14 ; Admin Dose 10 MG; Start 07/24/16 at 21:00 Benazepril HCl (Lotensin) 40 mg BID PO Last administered on 08/04/16 08:58; Admin Dose 40 MG; Start 07/24/16 at 21:00 Cholecalciferol (Vitamin D) 400 units DAILY PO Last administered on 08/05/16 10 :35; Admin Dose 400 UNITS; Start 07/25/16 at 09:00 Famotidine (Pepcid) 20 mg DAILY PO Last administered on 08/05/16 10:34; Admin Dose 20 MG; Start 07/25/16 at 09:00 Ferrous Sulfate (Ferrous Sulfate (Ec)) 325 mg BID PO Last administered on 10:35; Admin Dose 325 MG; Start 07/24/16 at 21:00 Acetaminophen/ Hydrocodone Bitart ([place] (5/325)) 1 tab Q4H PRN PO PAIN Last administered on 08/03/16 12:30; Admin Dose 1 TAB; Start 07/24/16 at 17:00 Insulin Glargine (Lantus) 6 unit DAILY@20 SC Last administered on 08/03/16 21: 17; Admin Dose 6 UNIT; Start 07/24/16 at 20:00 Isoniazid (Isoniazid) 300 mg DAILY PO Last administered on 08/05/16 10:34; Admin Dose 300 MG; Start 07/24/16 at 15:30 Nifedipine (Procardia Xl) 60 mg BID PO Last administered on 08/04/16 08:59; Admin Dose 60 MG; Start 07/24/16 at 21:00 Pyridoxine HCl (Vitamin B6) 50 mg DAILY PO Last administered on 08/05/16 10:34 ; Admin Dose 50 MG; Start 07/25/16 at 09:00 Rifampin (Rifampin) 600 mg DAILY PO Last administered on 08/05/16 10:34; Admin Dose 600 MG; Start 07/25/16 at 09:00 Miscellaneous Information 1 ea NOTE XX ; Start 07/24/16 at 16:00 Glucose (Glutose) 15 gm Q15M PRN PO DECREASED GLUCOSE; Start 07/24/16 at 16:00 Glucose (Glutose) 22.5 gm Q15M PRN PO DECREASED GLUCOSE; Start 07/24/16 at 16: 00 Dextrose (D50w Syringe) 25 ml Q15M PRN IV DECREASED GLUCOSE; Start 07/24/16 at 16:00 Dextrose (D50w Syringe) 50 ml Q15M PRN IV DECREASED GLUCOSE; Start 07/24/16 at 16:00 Glucagon (Glucagen) 1 mg Q15M PRN IM DECREASED GLUCOSE; Start 07/24/16 at 16:00 Glucose (Glutose) 15 gm Q15M PRN BUCCAL DECREASED GLUCOSE; Start 07/24/16 at 16 :00 Ondansetron HCl (Zofran Inj) 4 mg Q4 PRN IV nausea Last administered on 10:53; Admin Dose 4 MG; Start 07/24/16 at 17:00 Metoclopramide HCl (Reglan) 5 mg Q4H PRN IV NAUSEA Last administered on 10:46; Admin Dose 5 MG; Start 07/24/16 at 22:30 Diagnostic Test (Pha) (Accu-Chek) 1 ea 02 XX Last administered on 07/28/16 02: 54; Admin Dose 1 EA; Start 07/26/16 at 12:00 Metoprolol Tartrate (Lopressor) 100 mg BID GTB Last administered on 08/04/16 08 :57; Admin Dose 100 MG; Start 07/26/16 at 13:30 Clonidine HCl (Catapres-Tts 2 Patch) 1 patch Q7D TRANSDERM Last administered on 08/03/16 06:32; Admin Dose 1 PATCH; Start 07/27/16 at 07:00 Pantoprazole (Protonix Tab) 40 mg DAILY@06 PO Last administered on 08/05/16 10: 33; Admin Dose 40 MG; Start 07/28/16 at 06:00 Hydralazine HCl (Apresoline) 20 mg Q4 PRN IV ELEVATED BLOOD PRESSURE Last administered on 08/04/16 16:35; Admin Dose 20 MG; Start 07/28/16 at 02:00 Doxazosin Mesylate (Cardura) 2 mg HS PO Last administered on 08/03/16 21:15; Admin Dose 2 MG; Start 07/28/16 at 21:00 Polyethylene Glycol (Miralax) 17 gm DAILY PRN GTB CONSTIPATION Last administered on 07/28/16 20:22; Admin Dose 17 GM; Start 07/28/16 at 19:30 Lorazepam (Ativan) 1 mg Q4H PRN IV anxiety Last administered on 07/30/16 20:48 ; Admin Dose 1 MG; Start 07/29/16 at 06:30 Ethambutol HCl (Myambutol) 900 mg TuThSa@20 PO Last administered on 07/31/16 21:07; Admin Dose 900 MG; Start 07/31/16 at 20:00 Pyrazinamide (Pyrazinamide) 1,250 mg TuThSa@20 PO ; Start 07/31/16 at 20:00 Hydromorphone HCl (Dilaudid) 1 mg Q2H PRN IV pain Last administered on 19:23; Admin Dose 1 MG; Start 08/02/16 at 19:00 Hydralazine HCl 25 mg 25 mg Q8 PO ; Start 08/04/16 at 22:00 Norepinephrine/ Dextrose (Levophed/D5W) 500 ml @ 0 mls/hr TITRATE IV Last administered on 08/05/16 02:49; Admin Dose 0 MLS/HR; Start 08/05/16 at 01:30 PAOLA MOODY MD Aug 05, 2016 21:36
[2016-08-05] MEDS: PYRAZINAMIDE 500 MG TAB PO SCH (21:54)
[2016-08-05] MEDS: ETHAMBUTOL 400 MG TAB PO SCH (21:55)
[2016-08-05] MEDS: ATORVASTATIN 10 MG TAB PO SCH (21:57)
[2016-08-05] MEDS: DOXAZOSIN 2 MG TAB PO SCH (21:57)
[2016-08-05] MEDS: ONDANSETRON 4 MG INJ IV PRN (22:04)
[2016-08-05] MEDS: INSULIN GLARGINE [LANtus] 3 ML PEN SC SCH (23:46)
[2016-08-06] VITALS (19 sets, daily range): BP systolic 70–155; BP diastolic 35–88; PULSE 69–91; RESP 16–20
[2016-08-06] MEDS: Insulin NOVOLOG SS MILD Algorithm (SS with meals and bedtime) SC SCH ×5 (00:20→21:00)
[2016-08-06] MEDS: ACCUCHECK 2 AM XX SCH (02:44)
[2016-08-06] MEDS: HYDROmorphONE 1 MG/ML SYG IV PRN ×5 (02:51→20:07)
[2016-08-06] MEDS: PANTOPRAZOLE (EC) 40 MG TAB PO SCH (05:43)
[2016-08-06] MEDS: SEVELAMER CARBONATE 0.8 GM PKT PO SCH ×3 (08:18→17:57)
[2016-08-06] MEDS: PYRIDOXINE 50 MG TAB PO SCH (08:19)
[2016-08-06] MEDS: CALCIUM ACETATE 667 MG CAP PO SCH ×3 (08:19→17:57)
[2016-08-06] MEDS: CHOLECALCIFEROL 400 UNITS TAB PO SCH (08:19)
[2016-08-06] MEDS: FERROUS SULFATE (EC) 325 MG TAB PO SCH ×2 (08:19→21:00)
[2016-08-06] MEDS: FAMOTIDINE 20 MG TAB PO SCH (08:19)
[2016-08-06] MEDS: BENAZEPRIL 40 MG TAB PO SCH ×2 (08:20→21:00)
[2016-08-06] MEDS: NIFEdipine (XL) 60 MG TAB PO SCH ×2 (08:20→21:00)
[2016-08-06] MEDS: METOPROLOL 100 MG TAB GTB SCH ×2 (08:20→21:00)
[2016-08-06] MEDS: INSULIN ASPART [NOVOLOG] 3 ML PEN SC SCH ×2 (08:21→11:50)
[2016-08-06] MEDS: ONDANSETRON 4 MG INJ IV PRN ×3 (08:29→20:34)
--- NOTE | 2016-08-06 09:26 | CONS ---
Date/Time of Note Date/Time of Note DATE: 08/06/16 TIME: 09:21 Consult Date/Type/Reason Admit Date/Time Jul 24, 2016 at 12:53 Initial Consult Date 07/25/16 Type of Consultation: ID Ordering Provider: EVA COX MD Subjective Pt's s/p thoracotomy Objective Vital Signs Date Time Temp Pulse Resp B/P Pulse Ox O2 Delivery O2 Flow Rate FiO2 08/06/16 08:15 73 08/06/16 06:59 98.3 18 102/56 98 08/06/16 00:00 Nasal Cannula 2.0 Intake and Output 08/05/16 08/05/16 08/06/16 15:00 23:00 07:00 Intake Total 600 ml 600 ml Output Total 2000 ml 100 ml Balance -1400 ml 500 ml Exam Pt was not available for exam (PACU) Results/Medications Result Diagram: 08/05/16 1450 08/05/16 0609 Results 24 hrs Laboratory Tests Test 08/05/16 12:01 08/05/16 14:50 08/05/16 23:41 08/06/16 02:49 Bedside Glucose 167 228 H 220 White Blood Count 13.8 #H Red Blood Count 2.73 L Hemoglobin 8.6 L Hematocrit 25.0 L Mean Corpuscular Volume 91.6 Mean Corpuscular Hemoglobin 31.5 Mean Corpuscular Hemoglobin Concent 34.4 Red Cell Distribution Width 17.7 H Platelet Count 213 Mean Platelet Volume 10.4 Neutrophils % 84.6 H Lymphocytes % 3.3 L Monocytes % 11.0 Eosinophils % 0.2 Basophils % 0.3 Nucleated Red Blood Cells % 0.0 Neutrophils # 11.6 H Lymphocytes # 0.5 L Monocytes # 1.5 H Eosinophils # 0.0 Basophils # 0.0 Nucleated Red Blood Cells # 0.0 Test 08/06/16 07:44 Bedside Glucose 103 Medications Current Medications Aspirin (Halfprin) 81 mg DAILY PO Last administered on 07/26/16 08:39; Admin Dose 81 MG; Start 07/25/16 at 09:00; Status Future Hold Atorvastatin Calcium (Lipitor) 10 mg QHS PO Last administered on 08/05/16 21:57 ; Admin Dose 10 MG; Start 07/24/16 at 21:00 Benazepril HCl (Lotensin) 40 mg BID PO Last administered on 08/06/16 08:20; Admin Dose 40 MG; Start 07/24/16 at 21:00 Cholecalciferol (Vitamin D) 400 units DAILY PO Last administered on 08/06/16 08 :19; Admin Dose 400 UNITS; Start 07/25/16 at 09:00 Famotidine (Pepcid) 20 mg DAILY PO Last administered on 08/06/16 08:19; Admin Dose 20 MG; Start 07/25/16 at 09:00 Ferrous Sulfate (Ferrous Sulfate (Ec)) 325 mg BID PO Last administered on 08:19; Admin Dose 325 MG; Start 07/24/16 at 21:00 Acetaminophen/ Hydrocodone Bitart ([place] (5/325)) 1 tab Q4H PRN PO PAIN Last administered on 08/03/16 12:30; Admin Dose 1 TAB; Start 07/24/16 at 17:00 Insulin Glargine (Lantus) 6 unit DAILY@20 SC Last administered on 08/05/16 23: 46; Admin Dose 6 UNIT; Start 07/24/16 at 20:00 Isoniazid (Isoniazid) 300 mg DAILY PO Last administered on 08/05/16 10:34; Admin Dose 300 MG; Start 07/24/16 at 15:30 Nifedipine (Procardia Xl) 60 mg BID PO Last administered on 08/06/16 08:20; Admin Dose 60 MG; Start 07/24/16 at 21:00 Pyridoxine HCl (Vitamin B6) 50 mg DAILY PO Last administered on 08/06/16 08:19 ; Admin Dose 50 MG; Start 07/25/16 at 09:00 Rifampin (Rifampin) 600 mg DAILY PO Last administered on 08/05/16 10:34; Admin Dose 600 MG; Start 07/25/16 at 09:00 Miscellaneous Information 1 ea NOTE XX ; Start 07/24/16 at 16:00 Glucose (Glutose) 15 gm Q15M PRN PO DECREASED GLUCOSE; Start 07/24/16 at 16:00 Glucose (Glutose) 22.5 gm Q15M PRN PO DECREASED GLUCOSE; Start 07/24/16 at 16: 00 Dextrose (D50w Syringe) 25 ml Q15M PRN IV DECREASED GLUCOSE; Start 07/24/16 at 16:00 Dextrose (D50w Syringe) 50 ml Q15M PRN IV DECREASED GLUCOSE; Start 07/24/16 at 16:00 Glucagon (Glucagen) 1 mg Q15M PRN IM DECREASED GLUCOSE; Start 07/24/16 at 16:00 Glucose (Glutose) 15 gm Q15M PRN BUCCAL DECREASED GLUCOSE; Start 07/24/16 at 16 :00 Ondansetron HCl (Zofran Inj) 4 mg Q4 PRN IV nausea Last administered on 08:29; Admin Dose 4 MG; Start 07/24/16 at 17:00 Metoclopramide HCl (Reglan) 5 mg Q4H PRN IV NAUSEA Last administered on 10:46; Admin Dose 5 MG; Start 07/24/16 at 22:30 Diagnostic Test (Pha) (Accu-Chek) 1 ea 02 XX Last administered on 08/06/16 02: 44; Admin Dose 1 EA; Start 07/26/16 at 12:00 Metoprolol Tartrate (Lopressor) 100 mg BID GTB Last administered on 08/06/16 08 :20; Admin Dose 100 MG; Start 07/26/16 at 13:30 Clonidine HCl (Catapres-Tts 2 Patch) 1 patch Q7D TRANSDERM Last administered on 08/03/16 06:32; Admin Dose 1 PATCH; Start 07/27/16 at 07:00 Pantoprazole (Protonix Tab) 40 mg DAILY@06 PO Last administered on 08/06/16 05: 43; Admin Dose 40 MG; Start 07/28/16 at 06:00 Hydralazine HCl (Apresoline) 20 mg Q4 PRN IV ELEVATED BLOOD PRESSURE Last administered on 08/04/16 16:35; Admin Dose 20 MG; Start 07/28/16 at 02:00 Doxazosin Mesylate (Cardura) 2 mg HS PO Last administered on 08/05/16 21:57; Admin Dose 2 MG; Start 07/28/16 at 21:00 Polyethylene Glycol (Miralax) 17 gm DAILY PRN GTB CONSTIPATION Last administered on 07/28/16 20:22; Admin Dose 17 GM; Start 07/28/16 at 19:30 Lorazepam (Ativan) 1 mg Q4H PRN IV anxiety Last administered on 07/30/16 20:48 ; Admin Dose 1 MG; Start 07/29/16 at 06:30 Ethambutol HCl (Myambutol) 900 mg TuThSa@20 PO Last administered on 08/05/16 21 :55; Admin Dose 900 MG; Start 07/31/16 at 20:00 Pyrazinamide (Pyrazinamide) 1,250 mg TuThSa@20 PO Last administered on 21:54; Admin Dose 1,250 MG; Start 07/31/16 at 20:00 Hydromorphone HCl (Dilaudid) 1 mg Q2H PRN IV pain Last administered on 05:45; Admin Dose 1 MG; Start 08/02/16 at 19:00 Hydralazine HCl 25 mg 25 mg Q8 PO Last administered on 08/06/16 05:44; Admin Dose 25 MG; Start 08/04/16 at 22:00 Norepinephrine/ Dextrose (Levophed/D5W) 500 ml @ 0 mls/hr TITRATE IV Last administered on 08/05/16 02:49; Admin Dose 0 MLS/HR; Start 08/05/16 at 01:30 Assessment/Plan Chief Complaint/Hosp Course assessment/impression - possible tubercular empyema: R sided complex loculated air containing empyemas , visceral and parietal pleural calcifications. - a 35 mm lesion with possible cavitation in the anterior inferior RUL, possible recurrent tuberculosis - high risk for TB: history (originally from [facility], spends one month of each year in [facility], last in 09/2015), medical history (DM, ESRD), laboratory findings (positive quantiferon TB gold, granulomatous inflammation with focal necrosis on Bx of pleura) - AFB smear was negative x3, also M. tuberculosis DNA probe to the 1st sputum sample was undetectable in early 07/2016 - s/p first R VATS, total pulmonary decortication, R pleurodesis on 06/30/2016. Biopsy was negative for fungal stain and AFB stain (micro lab and pathology department), as well as malignancy. It showed granulomatous inflammation with focal necrosis and extensive hyalinization. - s/p second R VATS, decortication thoracotomy on 08/04/2016 - h/o recurrent pleural effusion requiring thoracentesis approximately once a year, last performed in 04/2016 prior to this admission - positive quantiferon TB gold status of unknown duration. Per Pt, his past PPD was done in 2013, and was negative. - Our infection unit control worker Lindsey contacted the TB control unit at [facility]: we learned on 07/11/2016 that Pt has h/o mycobacterial tuberculosis infection in 1997 and was treated between 1997 and 1998. - DM - Hgb A1c 5.2% 06/17/16 - ESRD on HD - CAD s/p CABG in 2010 and cardiac stent in 2013 - HIV screen negative in 07/2016 tested at [facility] - nausea, Pt has been taking TB meds according to his RN recommendations - prior to the surgery I ordered from surgery: AFB, fungal, aerobic and anaerobic cultures, cytology, M. tuberculosis DNA probe. I asked Pt's RN to endorse OR nurse. I found on 08/05/2016 no specimens were received by either pathology or micro lab. I asked Pt's RN Sarai to investigate on 08/05/2016 - I asked Pt's RN Sarai to call the infection control to see if Pt's airborne precautions can be discontinued - MTB DNA probe was ordered for the 1st sample of sputum (Yuriy at micro lab), will review the result - continue renally dosed RIPE plus vitamin B6 supplement (07/12/2016-) - check LFTs' weekly management d/w RN note: this is a late entry for my DOS 08/05/2016. I could not document my note on 08/05/2016 because [employer] was down at the time of my service Problems: YUMIKO NICHOLSON M.D. Aug 06, 2016 09:26
[2016-08-06] MEDS: ISONIAZID 300 MG TAB PO SCH (09:33)
[2016-08-06] MEDS: RIFAMPIN 300 MG CAP PO SCH (09:33)
--- NOTE | 2016-08-06 11:22 | CONS ---
Date/Time of Note Date/Time of Note DATE: 08/06/16 TIME: 11:20 Consult Date/Type/Reason Admit Date/Time Jul 24, 2016 at 12:53 Initial Consult Date 07/25/16 Type of Consultation: ID Ordering Provider: EVA COX MD Subjective pain from R chest wall, no dyspnea or hemoptysis Objective Vital Signs Date Time Temp Pulse Resp B/P Pulse Ox O2 Delivery O2 Flow Rate FiO2 08/06/16 11:06 98.3 70 18 106/58 100 08/06/16 08:00 Nasal Cannula 2.0 Intake and Output 08/05/16 08/05/16 08/06/16 15:00 23:00 07:00 Intake Total 600 ml 600 ml Output Total 2000 ml 100 ml Balance -1400 ml 500 ml Exam gen: drowsy but arousable heent: anicteric, OP clear necl: supple chest: decreased breath sounds b/l card: RRR without murmur abd: soft NT ND ext: AVF in RUE wound: chest tube in R thorax, draining serosanguinous fluid. the insertion site is dressed Results/Medications Result Diagram: 08/05/16 1450 08/05/16 0609 Results 24 hrs Laboratory Tests Test 08/05/16 12:01 08/05/16 14:50 08/05/16 23:41 08/06/16 02:49 Bedside Glucose 167 228 H 220 White Blood Count 13.8 #H Red Blood Count 2.73 L Hemoglobin 8.6 L Hematocrit 25.0 L Mean Corpuscular Volume 91.6 Mean Corpuscular Hemoglobin 31.5 Mean Corpuscular Hemoglobin Concent 34.4 Red Cell Distribution Width 17.7 H Platelet Count 213 Mean Platelet Volume 10.4 Neutrophils % 84.6 H Lymphocytes % 3.3 L Monocytes % 11.0 Eosinophils % 0.2 Basophils % 0.3 Nucleated Red Blood Cells % 0.0 Neutrophils # 11.6 H Lymphocytes # 0.5 L Monocytes # 1.5 H Eosinophils # 0.0 Basophils # 0.0 Nucleated Red Blood Cells # 0.0 Test 08/06/16 07:44 Bedside Glucose 103 Medications Current Medications Aspirin (Halfprin) 81 mg DAILY PO Last administered on 07/26/16t 08:39; Admin Dose 81 MG; Start 07/25/16 at 09:00; Status Future Hold Atorvastatin Calcium (Lipitor) 10 mg QHS PO Last administered on 08/05/16 21:57 ; Admin Dose 10 MG; Start 07/24/16 at 21:00 Benazepril HCl (Lotensin) 40 mg BID PO Last administered on 08/06/16 08:20; Admin Dose 40 MG; Start 07/24/16 at 21:00 Cholecalciferol (Vitamin D) 400 units DAILY PO Last administered on 08/06/16 08 :19; Admin Dose 400 UNITS; Start 07/25/16 at 09:00 Famotidine (Pepcid) 20 mg DAILY PO Last administered on 08/06/16 08:19; Admin Dose 20 MG; Start 07/25/16 at 09:00 Ferrous Sulfate (Ferrous Sulfate (Ec)) 325 mg BID PO Last administered on 08:19; Admin Dose 325 MG; Start 07/24/16 at 21:00 Acetaminophen/ Hydrocodone Bitart ([place] (5/325)) 1 tab Q4H PRN PO PAIN Last administered on 08/03/16 12:30; Admin Dose 1 TAB; Start 07/24/16 at 17:00 Insulin Glargine (Lantus) 6 unit DAILY@20 SC Last administered on 08/05/16 23: 46; Admin Dose 6 UNIT; Start 07/24/16 at 20:00 Isoniazid (Isoniazid) 300 mg DAILY PO Last administered on 08/06/16 09:33; Admin Dose 300 MG; Start 07/24/16 at 15:30 Nifedipine (Procardia Xl) 60 mg BID PO Last administered on 08/06/16 08:20; Admin Dose 60 MG; Start 07/24/16 at 21:00 Pyridoxine HCl (Vitamin B6) 50 mg DAILY PO Last administered on 08/06/16 08:19 ; Admin Dose 50 MG; Start 07/25/16 at 09:00 Rifampin (Rifampin) 600 mg DAILY PO Last administered on 08/06/16 09:33; Admin Dose 600 MG; Start 07/25/16 at 09:00 Miscellaneous Information 1 ea NOTE XX ; Start 07/24/16 at 16:00 Glucose (Glutose) 15 gm Q15M PRN PO DECREASED GLUCOSE; Start 07/24/16 at 16:00 Glucose (Glutose) 22.5 gm Q15M PRN PO DECREASED GLUCOSE; Start 07/24/16 at 16: 00 Dextrose (D50w Syringe) 25 ml Q15M PRN IV DECREASED GLUCOSE; Start 07/24/16 at 16:00 Dextrose (D50w Syringe) 50 ml Q15M PRN IV DECREASED GLUCOSE; Start 07/24/16 at 16:00 Glucagon (Glucagen) 1 mg Q15M PRN IM DECREASED GLUCOSE; Start 07/24/16 at 16:00 Glucose (Glutose) 15 gm Q15M PRN BUCCAL DECREASED GLUCOSE; Start 07/24/16 at 16 :00 Ondansetron HCl (Zofran Inj) 4 mg Q4 PRN IV nausea Last administered on 08:29; Admin Dose 4 MG; Start 07/24/16 at 17:00 Metoclopramide HCl (Reglan) 5 mg Q4H PRN IV NAUSEA Last administered on 10:46; Admin Dose 5 MG; Start 07/24/16 at 22:30 Diagnostic Test (Pha) (Accu-Chek) 1 ea 02 XX Last administered on 08/06/16 02: 44; Admin Dose 1 EA; Start 07/26/16 at 12:00 Metoprolol Tartrate (Lopressor) 100 mg BID GTB Last administered on 08/06/16 08 :20; Admin Dose 100 MG; Start 07/26/16 at 13:30 Clonidine HCl (Catapres-Tts 2 Patch) 1 patch Q7D TRANSDERM Last administered on 08/03/16 06:32; Admin Dose 1 PATCH; Start 07/27/16 at 07:00 Pantoprazole (Protonix Tab) 40 mg DAILY@06 PO Last administered on 08/06/16 05: 43; Admin Dose 40 MG; Start 07/28/16 at 06:00 Hydralazine HCl (Apresoline) 20 mg Q4 PRN IV ELEVATED BLOOD PRESSURE Last administered on 08/04/16 16:35; Admin Dose 20 MG; Start 07/28/16 at 02:00 Doxazosin Mesylate (Cardura) 2 mg HS PO Last administered on 08/05/16 21:57; Admin Dose 2 MG; Start 07/28/16 at 21:00 Polyethylene Glycol (Miralax) 17 gm DAILY PRN GTB CONSTIPATION Last administered on 07/28/16 20:22; Admin Dose 17 GM; Start 07/28/16 at 19:30 Lorazepam (Ativan) 1 mg Q4H PRN IV anxiety Last administered on 07/30/16 20:48 ; Admin Dose 1 MG; Start 07/29/16 at 06:30 Ethambutol HCl (Myambutol) 900 mg TuThSa@20 PO Last administered on 08/05/16 21 :55; Admin Dose 900 MG; Start 07/31/16 at 20:00 Pyrazinamide (Pyrazinamide) 1,250 mg TuThSa@20 PO Last administered on 21:54; Admin Dose 1,250 MG; Start 07/31/16 at 20:00 Hydromorphone HCl (Dilaudid) 1 mg Q2H PRN IV pain Last administered on 10:01; Admin Dose 1 MG; Start 08/02/16 at 19:00 Hydralazine HCl 25 mg 25 mg Q8 PO Last administered on 08/06/16 05:44; Admin Dose 25 MG; Start 08/04/16 at 22:00 Norepinephrine/ Dextrose (Levophed/D5W) 500 ml @ 0 mls/hr TITRATE IV Last administered on 08/05/16 02:49; Admin Dose 0 MLS/HR; Start 08/05/16 at 01:30 Assessment/Plan Chief Complaint/Hosp Course assessment/impression - possible tubercular empyema: R sided complex loculated air containing empyemas , visceral and parietal pleural calcifications. - a 35 mm lesion with possible cavitation in the anterior inferior RUL, possible recurrent tuberculosis - high risk for TB: history (originally from [facility], spends one month of each year in [facility], last in 09/2015), medical history (DM, ESRD), laboratory findings (positive quantiferon TB gold, granulomatous inflammation with focal necrosis on Bx of pleura) - AFB smear was negative x3, also M. tuberculosis DNA probe to the 1st sputum sample was undetectable in early 07/2016 - s/p first R VATS, total pulmonary decortication, R pleurodesis on 06/30/2016. Biopsy was negative for fungal stain and AFB stain (micro lab and pathology department), as well as malignancy. It showed granulomatous inflammation with focal necrosis and extensive hyalinization. - s/p second R VATS, decortication thoracotomy on 08/04/2016 - h/o recurrent pleural effusion requiring thoracentesis approximately once a year, last performed in 04/2016 prior to this admission - positive quantiferon TB gold status of unknown duration. Per Pt, his past PPD was done in 2013, and was negative. - Our infection control systems drafting officer Lindsey contacted the TB control unit at [facility]: we learned on 07/11/2016 that Pt has h/o mycobacterial tuberculosis infection in 1997 and was treated between 1997 and 1998. - DM - Hgb A1c 5.2% 06/17/16 - ESRD on HD - CAD s/p CABG in 2010 and cardiac stent in 2013 - HIV screen negative in 07/2016 tested at [facility] - nausea, Pt has been taking TB meds according to his RN recommendations - prior to the surgery I ordered from surgery: AFB, fungal, aerobic and anaerobic cultures, cytology, M. tuberculosis DNA probe. I asked Pt's RN to endorse OR nurse. I found on 08/05/2016 no specimens were received by either pathology or micro lab. I asked Pt's RN Sarai to investigate on 08/05/2016 - I asked Pt's RN Sarai to call the infection control to see if Pt's airborne precautions can be discontinued - MTB DNA probe was ordered for the 1st sample of sputum (Yuriy at micro lab), will review the result - continue renally dosed RIPE plus vitamin B6 supplement (07/12/2016-) - check LFTs' weekly management d/w RN note: this is a late entry for my DOS 08/05/2016. I could not document my note on 08/05/2016 because [employer] was down at the time of my service Problems: YUMIKO NICHOLSON M.D. Aug 06, 2016 11:22
[2016-08-06 11:32] LABS: ALBUMIN 2.8 g/dl (3.3-4.9)
[2016-08-06 11:34] LABS: POTASSIUM 4.4 mmol/L (3.5-5.1)
[2016-08-06 11:35] LABS: BILIRUBIN,DIRECT 0.1 mg/dl (0.00-0.20); BILIRUBIN,INDIRECT 0.7 mg/dl (0-1.1); BILIRUBIN,TOTAL 0.8 mg/dl (0.2-1.3); TOTAL PROTEIN 5.9 g/dl (6.1-8.1)
[2016-08-06 11:37] LABS: CREATININE 4.85 mg/dl (0.61-1.24)
[2016-08-06 11:38] LABS: CALCIUM 8.1 mg/dl (8.4-10.2)
--- NOTE | 2016-08-06 13:22 | PN ---
Date/Time of Note Date/Time of Note DATE: 08/06/16 TIME: 13:21 Assessment/Plan Lines/Catheters IV Catheter Type (from Nrs): AVF: WNL Jonas in Place (from Nrs): Yes Assessment/Plan Chief Complaint/Hosp Course IMPRESSION: Right chest tube site bleeding, which has now subsided completely. Hgb stable Would monitor the hemoglobin levels and stop the antiplatelet. SP VATS Decortication CT [address] sxn monitor HGBl evels Problems: Subjective 24 Hr Interval Summary Constitutional: improved Pain Control: mild Exam/Review of Systems Vital Signs Vitals Vital Signs Date Time Temp Pulse Resp B/P Pulse Ox O2 Delivery O2 Flow Rate FiO2 08/06/16 12:15 69 08/06/16 11:06 98.3 18 106/58 100 08/06/16 08:00 Nasal Cannula 2.0 Intake and Output 08/05/16 08/05/16 08/06/16 15:00 23:00 07:00 Intake Total 600 ml 600 ml Output Total 2000 ml 100 ml Balance -1400 ml 500 ml Exam Respiratory: clear to auscultation, normal air movement Cardiovascular: nl pulses, regular rate and rhythm Gastrointestinal: nl liver, spleen, non-tender, soft Results Result Diagram: 08/05/16 1450 08/06/16 1042 LILIA FELIZ MD Aug 06, 2016 13:22
--- NOTE | 2016-08-06 13:45 | CONS ---
Date/Time of Note Date/Time of Note DATE: 08/06/16 TIME: 13:41 Assessment/Plan Assessment/Plan Chief Complaint/Hosp Course IMPRESSION: 1. Abnormal electrocardiogram, assess for acute coronary syndrome with no current chest pain and recently negative stress test.-negative troponin x 3 2. History of a percutaneous transluminal coronary angioplasty and stent placement to left main and left anterior descending in 2014. 3. History of coronary artery bypass graft surgery. 4. Video assisted thoracoscopic surgery pleurodesis with leakage from the chest tube site.- now s/p repeat VATS/pleurodesis 5. Shortness of breath. 6. End-stage renal disease on hemodialysis. 7. Tuberculosis, on therapy. 8. Hypertension-currently well controled 9. Diabetes mellitus. 10. Dyslipidemia. 11. Anemia-worsening s/p transfusion 12.Empyema/cavitary lesions by CT Recc: -Tele -Continue benazepril/BB/CCB/hydralazine and follow BP closelyol -Plavix/asa held in the setting of anemia/resume when possible -HD for volume removal -continue TB treatment Problems: Consultation Date/Type/Reason Admit Date/Time Jul 24, 2016 at 12:53 Initial Consult Date 07/24/16 Type of Consultation: Cardiology Reason for Consultation abnl ecg Referring Provider: EVA COX MD Exam/Review of Systems Vital Signs Vitals Vital Signs Date Time Temp Pulse Resp B/P Pulse Ox O2 Delivery O2 Flow Rate FiO2 08/06/16 12:15 69 08/06/16 11:06 98.3 18 106/58 100 08/06/16 08:00 Nasal Cannula 2.0 Intake and Output 08/05/16 08/05/16 08/06/16 15:00 23:00 07:00 Intake Total 600 ml 600 ml Output Total 2000 ml 100 ml Balance -1400 ml 500 ml Exam Review of Systems: CONSTITUTIONAL: No fevers, chills. PULMONARY: No sob CARDIOVASCULAR: No chest pain/palpitations GASTROINTESTINAL: No nausea/vomiting. GENITOURINARY: No hematuria/dysuria. MUSCULOSKELETAL: No myagias/arthalgias. PSYCHIATRIC: The patient denies depression. NEUROLOGIC: No weakness Constitutional: alert, oriented Psych: no complaints ENMT: mucosa pink and moist Neck: jvd (9 cm water), supple Respiratory: diminished breath sounds Cardiovascular: regular rate and rhythm Gastrointestinal: soft Musculoskeletal: muscle tone Extremities: normal pulses (normal) Neurological: other (No focal deficits) Results Result Diagram: 08/05/16 1450 08/06/16 1042 Results 24 hrs Laboratory Tests Test 08/05/16 14:50 08/05/16 23:41 08/06/16 02:49 08/06/16 07:44 White Blood Count 13.8 #H Red Blood Count 2.73 L Hemoglobin 8.6 L Hematocrit 25.0 L Mean Corpuscular Volume 91.6 Mean Corpuscular Hemoglobin 31.5 Mean Corpuscular Hemoglobin Concent 34.4 Red Cell Distribution Width 17.7 H Platelet Count 213 Mean Platelet Volume 10.4 Neutrophils % 84.6 H Lymphocytes % 3.3 L Monocytes % 11.0 Eosinophils % 0.2 Basophils % 0.3 Nucleated Red Blood Cells % 0.0 Neutrophils # 11.6 H Lymphocytes # 0.5 L Monocytes # 1.5 H Eosinophils # 0.0 Basophils # 0.0 Nucleated Red Blood Cells # 0.0 Bedside Glucose 228 H 220 103 Test 08/06/16 10:42 08/06/16 11:49 08/06/16 12:14 08/06/16 12:33 Sodium Level 139 Potassium Level 4.4 Chloride Level 104 Carbon Dioxide Level 30 Anion Gap 9 Blood Urea Nitrogen 35 H Creatinine 4.85 H Glucose Level 38 #*L Calcium Level 8.1 L Total Bilirubin 0.8 Direct Bilirubin 0.10 # Indirect Bilirubin 0.7 Aspartate Amino Transf (AST/SGOT) 52 H Alanine Aminotransferase (ALT/SGPT) 18 Alkaline Phosphatase 95 Total Protein 5.9 L Albumin 2.8 L Bedside Glucose 47 *L 63 L 102 Medications Medications Current Medications Aspirin (Halfprin) 81 mg DAILY PO Last administered on 07/26/16 08:39; Admin Dose 81 MG; Start 07/25/16 at 09:00; Status Future Hold Atorvastatin Calcium (Lipitor) 10 mg QHS PO Last administered on 08/05/16 21:57 ; Admin Dose 10 MG; Start 07/24/16 at 21:00 Benazepril HCl (Lotensin) 40 mg BID PO Last administered on 08/06/16 08:20; Admin Dose 40 MG; Start 07/24/16 at 21:00 Cholecalciferol (Vitamin D) 400 units DAILY PO Last administered on 08/06/16 08 :19; Admin Dose 400 UNITS; Start 07/25/16 at 09:00 Famotidine (Pepcid) 20 mg DAILY PO Last administered on 08/06/16 08:19; Admin Dose 20 MG; Start 07/25/16 at 09:00 Ferrous Sulfate (Ferrous Sulfate (Ec)) 325 mg BID PO Last administered on 08:19; Admin Dose 325 MG; Start 07/24/16 at 21:00 Acetaminophen/ Hydrocodone Bitart ([place] (5/325)) 1 tab Q4H PRN PO PAIN Last administered on 08/03/16 12:30; Admin Dose 1 TAB; Start 07/24/16 at 17:00 Isoniazid (Isoniazid) 300 mg DAILY PO Last administered on 08/06/16 09:33; Admin Dose 300 MG; Start 07/24/16 at 15:30 Nifedipine (Procardia Xl) 60 mg BID PO Last administered on 08/06/16 08:20; Admin Dose 60 MG; Start 07/24/16 at 21:00 Pyridoxine HCl (Vitamin B6) 50 mg DAILY PO Last administered on 08/06/16 08:19 ; Admin Dose 50 MG; Start 07/25/16 at 09:00 Rifampin (Rifampin) 600 mg DAILY PO Last administered on 08/06/16 09:33; Admin Dose 600 MG; Start 07/25/16 at 09:00 Miscellaneous Information 1 ea NOTE XX ; Start 07/24/16 at 16:00 Glucose (Glutose) 15 gm Q15M PRN PO DECREASED GLUCOSE; Start 07/24/16 at 16:00 Glucose (Glutose) 22.5 gm Q15M PRN PO DECREASED GLUCOSE; Start 07/24/16 at 16: 00 Dextrose (D50w Syringe) 25 ml Q15M PRN IV DECREASED GLUCOSE; Start 07/24/16 at 16:00 Dextrose (D50w Syringe) 50 ml Q15M PRN IV DECREASED GLUCOSE; Start 07/24/16 at 16:00 Glucagon (Glucagen) 1 mg Q15M PRN IM DECREASED GLUCOSE; Start 07/24/16 at 16:00 Glucose (Glutose) 15 gm Q15M PRN BUCCAL DECREASED GLUCOSE; Start 07/24/16 at 16 :00 Ondansetron HCl (Zofran Inj) 4 mg Q4 PRN IV nausea Last administered on 08:29; Admin Dose 4 MG; Start 07/24/16 at 17:00 Metoclopramide HCl (Reglan) 5 mg Q4H PRN IV NAUSEA Last administered on 10:46; Admin Dose 5 MG; Start 07/24/16 at 22:30 Diagnostic Test (Pha) (Accu-Chek) 1 ea 02 XX Last administered on 08/06/16 02: 44; Admin Dose 1 EA; Start 07/26/16 at 12:00 Metoprolol Tartrate (Lopressor) 100 mg BID GTB Last administered on 08/06/16 08 :20; Admin Dose 100 MG; Start 07/26/16 at 13:30 Clonidine HCl (Catapres-Tts 2 Patch) 1 patch Q7D TRANSDERM Last administered on 08/03/16 06:32; Admin Dose 1 PATCH; Start 07/27/16 at 07:00 Pantoprazole (Protonix Tab) 40 mg DAILY@06 PO Last administered on 08/06/16 05: 43; Admin Dose 40 MG; Start 07/28/16 at 06:00 Hydralazine HCl (Apresoline) 20 mg Q4 PRN IV ELEVATED BLOOD PRESSURE Last administered on 08/04/16 16:35; Admin Dose 20 MG; Start 07/28/16 at 02:00 Doxazosin Mesylate (Cardura) 2 mg HS PO Last administered on 08/05/16 21:57; Admin Dose 2 MG; Start 07/28/16 at 21:00 Polyethylene Glycol (Miralax) 17 gm DAILY PRN GTB CONSTIPATION Last administered on 07/28/16 20:22; Admin Dose 17 GM; Start 07/28/16 at 19:30 Lorazepam (Ativan) 1 mg Q4H PRN IV anxiety Last administered on 07/30/16 20:48 ; Admin Dose 1 MG; Start 07/29/16 at 06:30 Ethambutol HCl (Myambutol) 900 mg TuThSa@20 PO Last administered on 08/05/16 21 :55; Admin Dose 900 MG; Start 07/31/16 at 20:00 Pyrazinamide (Pyrazinamide) 1,250 mg TuThSa@20 PO Last administered on 21:54; Admin Dose 1,250 MG; Start 07/31/16 at 20:00 Hydromorphone HCl (Dilaudid) 1 mg Q2H PRN IV pain Last administered on 10:01; Admin Dose 1 MG; Start 08/02/16 at 19:00 Hydralazine HCl 25 mg 25 mg Q8 PO Last administered on 08/06/16 05:44; Admin Dose 25 MG; Start 08/04/16 at 22:00 Norepinephrine/ Dextrose (Levophed/D5W) 500 ml @ 0 mls/hr TITRATE IV Last administered on 08/05/16 02:49; Admin Dose 0 MLS/HR; Start 08/05/16 at 01:30 SHERITA SCOTT Aug 06, 2016 13:45
--- NOTE | 2016-08-06 15:37 | PN ---
Date/Time of Note Date/Time of Note DATE: 08/06/16 TIME: 15:34 Assessment/Plan VTE Prophylaxis VTE Prophylaxis Intervention: SCD's Lines/Catheters IV [facility] AVF: WNL Urinary Cath still in place: Yes Reason Cath still needed: urinary retention Assessment/Plan Chief Complaint/Hosp Course Assessment and plan: - Recurrent right pleural effusion consistent with empyema, cavitary lesions, status post right thoracotomy and pulmonary decortication on 08/04. -Hemoptysis, resolved. Dr. Dale is following in pulmonology consultation. Dr. Caitlin balderas is following an infection disease consultation. -Right former chest tube site bleeding, resolved. Dr. Martinez is following in thoracic surgery consultation. -Anemia of acute blood loss, patient had bleeding from the right femoral catheter as well as chest tube site on admission, status post blood transfusion , continue to monitor hemoglobin and hematocrit. Dr. Martinez is following in hematology consultation. 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 - End-stage renal disease, continue hemodialysis. Dr. Saunders is following in nephrology consultation. - Diabetes mellitus type 2, continue Lantus, pre-meal NovoLog and NovoLog per mild algorithm sliding scale. - Hypertension. Dr. De Santiago is following and cardiology consultation. Continue benazepril metoprolol hydralazine Procardia - Coronary artery disease, status post coronary artery bypass graft, s/p percutaneous transluminal coronary angioplasty and stent placement to left main and left anterior descending in 2014. - Permanent pacemaker. No acute issues. - Dyslipidemia. Continue Lipitor. Further recommendations based on clinical course. Plan of care discussed with Dr. Price. Problems: Subjective 24 Hr Interval Summary Free Text/Dictation Patient's complains of right chest tube pain controlled with medication, patient was episode of hypoglycemia, will hold Lantus for now, patient also complains of poor appetite, encourage p.o. intake. Exam/Review of Systems Vital Signs Vitals Vital Signs Date Time Temp Pulse Resp B/P Pulse Ox O2 Delivery O2 Flow Rate FiO2 08/06/16 12:15 69 08/06/16 11:06 98.3 18 106/58 100 08/06/16 08:00 Nasal Cannula 2.0 Intake and Output 08/05/16 08/05/16 08/06/16 15:00 23:00 07:00 Intake Total 600 ml 600 ml Output Total 2000 ml 100 ml Balance -1400 ml 500 ml Exam Constitutional: alert, oriented Psych: no complaints Head: atraumatic, normocephalic ENMT: nl external ears & nose Neck: non-tender, supple Respiratory: clear to auscultation, normal air movement Cardiovascular: other (Left chest permanent pacemaker), regular rate and rhythm Gastrointestinal: bowel sounds, soft Extremities: normal pulses Neurological: WRIST CLOSER II-XII intact R CT Results Result Diagram: 08/05/16 1450 08/06/16 1042 Results 24 hrs Laboratory Tests Test 08/05/16 23:41 08/06/16 02:49 08/06/16 07:44 08/06/16 10:42 Bedside Glucose 228 H 220 103 Sodium Level 139 Potassium Level 4.4 Chloride Level 104 Carbon Dioxide Level 30 Anion Gap 9 Blood Urea Nitrogen 35 H Creatinine 4.85 H Glucose Level 38 #*L Calcium Level 8.1 L Total Bilirubin 0.8 Direct Bilirubin 0.10 # Indirect Bilirubin 0.7 Aspartate Amino Transf (AST/SGOT) 52 H Alanine Aminotransferase (ALT/SGPT) 18 Alkaline Phosphatase 95 Total Protein 5.9 L Albumin 2.8 L Test 08/06/16 11:49 08/06/16 12:14 08/06/16 12:33 Bedside Glucose 47 *L 63 L 102 Medications Medications Current Medications Aspirin (Halfprin) 81 mg DAILY PO Last administered on 07/26/16 08:39; Admin Dose 81 MG; Start 07/25/16 at 09:00; Status Future Hold Atorvastatin Calcium (Lipitor) 10 mg QHS PO Last administered on 08/05/16 21:57 ; Admin Dose 10 MG; Start 07/24/16 at 21:00 Benazepril HCl (Lotensin) 40 mg BID PO Last administered on 08/06/16 08:20; Admin Dose 40 MG; Start 07/24/16 at 21:00 Cholecalciferol (Vitamin D) 400 units DAILY PO Last administered on 08/06/16 08 :19; Admin Dose 400 UNITS; Start 07/25/16 at 09:00 Famotidine (Pepcid) 20 mg DAILY PO Last administered on 08/06/16 08:19; Admin Dose 20 MG; Start 07/25/16 at 09:00 Ferrous Sulfate (Ferrous Sulfate (Ec)) 325 mg BID PO Last administered on 08:19; Admin Dose 325 MG; Start 07/24/16 at 21:00 Acetaminophen/ Hydrocodone Bitart ([place] (5/325)) 1 tab Q4H PRN PO PAIN Last administered on 08/03/16 12:30; Admin Dose 1 TAB; Start 07/24/16 at 17:00 Isoniazid (Isoniazid) 300 mg DAILY PO Last administered on 08/06/16 09:33; Admin Dose 300 MG; Start 07/24/16 at 15:30 Nifedipine (Procardia Xl) 60 mg BID PO Last administered on 08/06/16 08:20; Admin Dose 60 MG; Start 07/24/16 at 21:00 Pyridoxine HCl (Vitamin B6) 50 mg DAILY PO Last administered on 08/06/16 08:19 ; Admin Dose 50 MG; Start 07/25/16 at 09:00 Rifampin (Rifampin) 600 mg DAILY PO Last administered on 08/06/16 09:33; Admin Dose 600 MG; Start 07/25/16 at 09:00 Miscellaneous Information 1 ea NOTE XX ; Start 07/24/16 at 16:00 Glucose (Glutose) 15 gm Q15M PRN PO DECREASED GLUCOSE; Start 07/24/16 at 16:00 Glucose (Glutose) 22.5 gm Q15M PRN PO DECREASED GLUCOSE; Start 07/24/16 at 16: 00 Dextrose (D50w Syringe) 25 ml Q15M PRN IV DECREASED GLUCOSE; Start 07/24/16 at 16:00 Dextrose (D50w Syringe) 50 ml Q15M PRN IV DECREASED GLUCOSE; Start 07/24/16 at 16:00 Glucagon (Glucagen) 1 mg Q15M PRN IM DECREASED GLUCOSE; Start 07/24/16 at 16:00 Glucose (Glutose) 15 gm Q15M PRN BUCCAL DECREASED GLUCOSE; Start 07/24/16 at 16 :00 Ondansetron HCl (Zofran Inj) 4 mg Q4 PRN IV nausea Last administered on 08:29; Admin Dose 4 MG; Start 07/24/16 at 17:00 Metoclopramide HCl (Reglan) 5 mg Q4H PRN IV NAUSEA Last administered on 10:46; Admin Dose 5 MG; Start 07/24/16 at 22:30 Diagnostic Test (Pha) (Accu-Chek) 1 ea 02 XX Last administered on 08/06/16 02: 44; Admin Dose 1 EA; Start 07/26/16 at 12:00 Metoprolol Tartrate (Lopressor) 100 mg BID GTB Last administered on 08/06/16 08 :20; Admin Dose 100 MG; Start 07/26/16 at 13:30 Clonidine HCl (Catapres-Tts 2 Patch) 1 patch Q7D TRANSDERM Last administered on 08/03/16 06:32; Admin Dose 1 PATCH; Start 07/27/16 at 07:00 Pantoprazole (Protonix Tab) 40 mg DAILY@06 PO Last administered on 08/06/16 05: 43; Admin Dose 40 MG; Start 07/28/16 at 06:00 Hydralazine HCl (Apresoline) 20 mg Q4 PRN IV ELEVATED BLOOD PRESSURE Last administered on 08/04/16 16:35; Admin Dose 20 MG; Start 07/28/16 at 02:00 Doxazosin Mesylate (Cardura) 2 mg HS PO Last administered on 08/05/16 21:57; Admin Dose 2 MG; Start 07/28/16 at 21:00 Polyethylene Glycol (Miralax) 17 gm DAILY PRN GTB CONSTIPATION Last administered on 07/28/16 20:22; Admin Dose 17 GM; Start 07/28/16 at 19:30 Lorazepam (Ativan) 1 mg Q4H PRN IV anxiety Last administered on 07/30/16 20:48 ; Admin Dose 1 MG; Start 07/29/16 at 06:30 Ethambutol HCl (Myambutol) 900 mg TuThSa@20 PO Last administered on 08/05/16 21 :55; Admin Dose 900 MG; Start 07/31/16 at 20:00 Pyrazinamide (Pyrazinamide) 1,250 mg TuThSa@20 PO Last administered on 21:54; Admin Dose 1,250 MG; Start 07/31/16 at 20:00 Hydromorphone HCl (Dilaudid) 1 mg Q2H PRN IV pain Last administered on 10:01; Admin Dose 1 MG; Start 08/02/16 at 19:00 Hydralazine HCl 25 mg 25 mg Q8 PO Last administered on 08/06/16 05:44; Admin Dose 25 MG; Start 08/04/16 at 22:00 Norepinephrine/ Dextrose (Levophed/D5W) 500 ml @ 0 mls/hr TITRATE IV Last administered on 08/05/16 02:49; Admin Dose 0 MLS/HR; Start 08/05/16 at 01:30 CECILIA DAMICO Aug 06, 2016 15:37
[2016-08-06] MEDS: HYDROCODONE/APAP (5/325) TAB PO PRN (18:02)
--- NOTE | 2016-08-06 20:01 | CONS ---
Date/Time of Note Date/Time of Note DATE: 08/06/16 TIME: 20:00 Assessment/Plan Assessment/Plan Chief Complaint/Hosp Course IMPRESSION: 1. Recurrent pleural effusions. s/p vats 2. Lung infiltrate./cavitary lesion 3. chronic lung disease. 4. Hypertension. 5. Diabetes mellitus. 6. End-stage renal disease. 7. anemia. 8. cad. 9. Leukocytosis.better 10. ashd 11. PLEURAL EFFUSIN 12. The patient on anti-tuberculosis treatment. 13. 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 PLAN HD 3x wk per pt per id and surgery chest xr Problems: Consultation Date/Type/Reason Admit Date/Time Jul 24, 2016 at 12:53 Initial Consult Date 07/25/16 Type of Consultation: renal Referring Provider: EVA COX MD 24 HR Interval Summary Subjective hx not possible: other (chest wall pain) Exam/Review of Systems Vital Signs Vitals Vital Signs Date Time Temp Pulse Resp B/P Pulse Ox O2 Delivery O2 Flow Rate FiO2 08/06/16 16:40 75 08/06/16 15:56 98.5 18 100/35 94 08/06/16 08:00 Nasal Cannula 2.0 Intake and Output 08/05/16 08/05/16 08/06/16 14:59 22:59 06:59 Intake Total 600 ml 600 ml Output Total 2000 ml 100 ml Balance -1400 ml 500 ml Exam Respiratory: diminished breath sounds Cardiovascular: regular rate and rhythm Gastrointestinal: bowel sounds (+), soft Extremities: edema (tr) Results Result Diagram: 08/05/16 1450 08/06/16 1042 Results 24 hrs Laboratory Tests Test 08/05/16 23:41 08/06/16 02:49 08/06/16 07:44 08/06/16 10:42 Bedside Glucose 228 H 220 103 Sodium Level 139 Potassium Level 4.4 Chloride Level 104 Carbon Dioxide Level 30 Anion Gap 9 Blood Urea Nitrogen 35 H Creatinine 4.85 H Glucose Level 38 #*L Calcium Level 8.1 L Total Bilirubin 0.8 Direct Bilirubin 0.10 # Indirect Bilirubin 0.7 Aspartate Amino Transf (AST/SGOT) 52 H Alanine Aminotransferase (ALT/SGPT) 18 Alkaline Phosphatase 95 Total Protein 5.9 L Albumin 2.8 L Test 08/06/16 11:49 08/06/16 12:14 08/06/16 12:33 08/06/16 17:35 Bedside Glucose 47 *L 63 L 102 149 Medications Medications Current Medications Aspirin (Halfprin) 81 mg DAILY PO Last administered on 07/26/16 08:39; Admin Dose 81 MG; Start 07/25/16 at 09:00; Status Future Hold Atorvastatin Calcium (Lipitor) 10 mg QHS PO Last administered on 08/05/16 21:57 ; Admin Dose 10 MG; Start 07/24/16 at 21:00 Benazepril HCl (Lotensin) 40 mg BID PO Last administered on 08/06/16 08:20; Admin Dose 40 MG; Start 07/24/16 at 21:00 Cholecalciferol (Vitamin D) 400 units DAILY PO Last administered on 08/06/16 08 :19; Admin Dose 400 UNITS; Start 07/25/16 at 09:00 Famotidine (Pepcid) 20 mg DAILY PO Last administered on 08/06/16 08:19; Admin Dose 20 MG; Start 07/25/16 at 09:00 Ferrous Sulfate (Ferrous Sulfate (Ec)) 325 mg BID PO Last administered on 08:19; Admin Dose 325 MG; Start 07/24/16 at 21:00 Acetaminophen/ Hydrocodone Bitart ([place] (5/325)) 1 tab Q4H PRN PO PAIN Last administered on 08/06/16 18:02; Admin Dose 1 TAB; Start 07/24/16 at 17:00 Isoniazid (Isoniazid) 300 mg DAILY PO Last administered on 08/06/16 09:33; Admin Dose 300 MG; Start 07/24/16 at 15:30 Nifedipine (Procardia Xl) 60 mg BID PO Last administered on 08/06/16 08:20; Admin Dose 60 MG; Start 07/24/16 at 21:00 Pyridoxine HCl (Vitamin B6) 50 mg DAILY PO Last administered on 08/06/16 08:19 ; Admin Dose 50 MG; Start 07/25/16 at 09:00 Rifampin (Rifampin) 600 mg DAILY PO Last administered on 08/06/16 09:33; Admin Dose 600 MG; Start 07/25/16 at 09:00 Miscellaneous Information 1 ea NOTE XX ; Start 07/24/16 at 16:00 Glucose (Glutose) 15 gm Q15M PRN PO DECREASED GLUCOSE; Start 07/24/16 at 16:00 Glucose (Glutose) 22.5 gm Q15M PRN PO DECREASED GLUCOSE; Start 07/24/16 at 16: 00 Dextrose (D50w Syringe) 25 ml Q15M PRN IV DECREASED GLUCOSE; Start 07/24/16 at 16:00 Dextrose (D50w Syringe) 50 ml Q15M PRN IV DECREASED GLUCOSE; Start 07/24/16 at 16:00 Glucagon (Glucagen) 1 mg Q15M PRN IM DECREASED GLUCOSE; Start 07/24/16 at 16:00 Glucose (Glutose) 15 gm Q15M PRN BUCCAL DECREASED GLUCOSE; Start 07/24/16 at 16 :00 Ondansetron HCl (Zofran Inj) 4 mg Q4 PRN IV nausea Last administered on 16:39; Admin Dose 4 MG; Start 07/24/16 at 17:00 Metoclopramide HCl (Reglan) 5 mg Q4H PRN IV NAUSEA Last administered on 10:46; Admin Dose 5 MG; Start 07/24/16 at 22:30 Diagnostic Test (Pha) (Accu-Chek) 1 ea 02 XX Last administered on 08/06/16 02: 44; Admin Dose 1 EA; Start 07/26/16 at 12:00 Metoprolol Tartrate (Lopressor) 100 mg BID GTB Last administered on 08/06/16 08 :20; Admin Dose 100 MG; Start 07/26/16 at 13:30 Clonidine HCl (Catapres-Tts 2 Patch) 1 patch Q7D TRANSDERM Last administered on 08/03/16 06:32; Admin Dose 1 PATCH; Start 07/27/16 at 07:00 Pantoprazole (Protonix Tab) 40 mg DAILY@06 PO Last administered on 08/06/16 05: 43; Admin Dose 40 MG; Start 07/28/16 at 06:00 Hydralazine HCl (Apresoline) 20 mg Q4 PRN IV ELEVATED BLOOD PRESSURE Last administered on 08/04/16 16:35; Admin Dose 20 MG; Start 07/28/16 at 02:00 Doxazosin Mesylate (Cardura) 2 mg HS PO Last administered on 08/05/16 21:57; Admin Dose 2 MG; Start 07/28/16 at 21:00 Polyethylene Glycol (Miralax) 17 gm DAILY PRN GTB CONSTIPATION Last administered on 07/28/16 20:22; Admin Dose 17 GM; Start 07/28/16 at 19:30 Lorazepam (Ativan) 1 mg Q4H PRN IV anxiety Last administered on 07/30/16 20:48 ; Admin Dose 1 MG; Start 07/29/16 at 06:30 Ethambutol HCl (Myambutol) 900 mg TuThSa@20 PO Last administered on 08/05/16 21 :55; Admin Dose 900 MG; Start 07/31/16 at 20:00 Pyrazinamide (Pyrazinamide) 1,250 mg TuThSa@20 PO Last administered on 21:54; Admin Dose 1,250 MG; Start 07/31/16 at 20:00 Hydromorphone HCl (Dilaudid) 1 mg Q2H PRN IV pain Last administered on 16:42; Admin Dose 1 MG; Start 08/02/16 at 19:00 Hydralazine HCl 25 mg 25 mg Q8 PO Last administered on 08/06/16 05:44; Admin Dose 25 MG; Start 08/04/16 at 22:00 Norepinephrine/ Dextrose (Levophed/D5W) 500 ml @ 0 mls/hr TITRATE IV Last administered on 08/05/16 02:49; Admin Dose 0 MLS/HR; Start 08/05/16 at 01:30 PAOLA MOODY MD Aug 06, 2016 20:01
[2016-08-06] MEDS: ATORVASTATIN 10 MG TAB PO SCH (21:00)
[2016-08-06] MEDS: DOXAZOSIN 2 MG TAB PO SCH (21:00)
[2016-08-07] VITALS (12 sets, daily range): BP systolic 91–134; BP diastolic 51–63; PULSE 69–74; RESP 18–20
[2016-08-07] MEDS: ACCUCHECK 2 AM XX SCH (02:00)
[2016-08-07] MEDS: PANTOPRAZOLE (EC) 40 MG TAB PO SCH (07:01)
[2016-08-07] MEDS: ONDANSETRON 4 MG INJ IV PRN ×3 (07:02→20:41)
[2016-08-07] MEDS: HYDROmorphONE 1 MG/ML SYG IV PRN ×4 (07:02→23:20)
[2016-08-07] MEDS: Insulin NOVOLOG SS MILD Algorithm (SS with meals and bedtime) SC SCH ×4 (07:32→21:41)
[2016-08-07] MEDS: INSULIN ASPART [NOVOLOG] 3 ML PEN SC SCH ×2 (07:33→11:50)
[2016-08-07 08:14] LABS: ADD SCAN DIFF NO
[2016-08-07 08:17] LABS: ABNORMAL IP MESSAGE 1; BASOPHILS % 0.1 % (0.0-2.0); EOSINOPHILS # 0.3 10^3/ul (0.0-0.5); EOSINOPHILS % 1.8 % (0.0-7.0); HEMATOCRIT 31.5 % (42.0-52.0); HEMOGLOBIN 10.2 g/dl (14.0-18.0); LYMPHOCYTES # 0.6 10^3/ul (0.8-2.9); LYMPHOCYTES % 4.1 % (15.0-51.0); MEAN CORPUSCULAR HEMOGLOBIN 31.3 pg (29.0-33.0); MEAN CORPUSCULAR HGB CONC 32.4 g/dl (32.0-37.0); MEAN CORPUSCULAR VOLUME 96.6 fl (82.0-101.0); MONOCYTE # 1.2 10^3/ul (0.3-0.9); MONOCYTES % 8.5 % (0.0-11.0); NEUTROPHIL # 11.9 10^3/ul (1.6-7.5); NEUTROPHILS % 84.9 % (39.0-77.0); PLATELET COUNT 188 10^3/UL (140-415); RED BLOOD COUNT 3.26 10^6/ul (4.70-6.10); RED CELL DISTRIBUTION WIDTH 16.9 % (11.5-14.5)
[2016-08-07 08:41] LABS: POTASSIUM 4.9 mmol/L (3.5-5.1)
[2016-08-07 08:43] LABS: CREATININE 4.64 mg/dl (0.61-1.24)
[2016-08-07 08:44] LABS: CALCIUM 7.9 mg/dl (8.4-10.2)
[2016-08-07] MEDS: ISONIAZID 300 MG TAB PO SCH (08:45)
[2016-08-07] MEDS: PYRIDOXINE 50 MG TAB PO SCH (08:45)
[2016-08-07] MEDS: RIFAMPIN 300 MG CAP PO SCH (08:45)
[2016-08-07] MEDS: SEVELAMER CARBONATE 0.8 GM PKT PO SCH ×3 (08:45→17:12)
[2016-08-07] MEDS: CALCIUM ACETATE 667 MG CAP PO SCH ×3 (08:45→17:12)
[2016-08-07] MEDS: FERROUS SULFATE (EC) 325 MG TAB PO SCH ×2 (08:46→21:32)
[2016-08-07] MEDS: CHOLECALCIFEROL 400 UNITS TAB PO SCH (08:46)
[2016-08-07] MEDS: NIFEdipine (XL) 60 MG TAB PO SCH (08:46)
[2016-08-07] MEDS: FAMOTIDINE 20 MG TAB PO SCH (08:46)
[2016-08-07] MEDS: BENAZEPRIL 40 MG TAB PO SCH (08:46)
[2016-08-07] MEDS: METOPROLOL 100 MG TAB GTB SCH ×2 (08:47→21:00)
--- NOTE | 2016-08-07 11:48 | RADRPT ---
PROCEDURE: XR Chest. CLINICAL INDICATION: Shortness of breath. TECHNIQUE: Two views. Frontal and lateral. COMPARISON: 08/04/2016. FINDINGS: The 2 right chest tubes and right lateral skin willis remain in position. There are sternal wires and mediastinal clips. There is a dual lead permanent pacemaker. The heart size is normal. Calcif ication is present in the aorta consistent with atherosclerosis. There is right basilar atelectasis and a small right pleural effusion, worse than seen previously. The left lung is clear and there is no left pleural effusion. There is no pneumothorax. IMPRESSION: 1. Worse appearance of the right lung base and right pleural effusion. 2. No other change from 08/04/2016. RPTAT: QQ .Robby Bennett MD, MD Date Time Electronically viewed and signed by .Robby Bennett MD, MD on 08/07/2016 11:48 .R/
--- NOTE | 2016-08-07 12:47 | CONS ---
Date/Time of Note Date/Time of Note DATE: 08/07/16 TIME: 12:45 Assessment/Plan Assessment/Plan Chief Complaint/Hosp Course IMPRESSION: 1. Abnormal electrocardiogram, assess for acute coronary syndrome with no current chest pain and recently negative stress test.-negative troponin x 3 2. History of a percutaneous transluminal coronary angioplasty and stent placement to left main and left anterior descending in 2014. 3. History of coronary artery bypass graft surgery. 4. Video assisted thoracoscopic surgery pleurodesis with leakage from the chest tube site.- now s/p repeat VATS/pleurodesis with CT 5. Shortness of breath. 6. End-stage renal disease on hemodialysis. 7. Tuberculosis, on therapy. 8. Hypertension-currently borderline Hotn 9. Diabetes mellitus. 10. Dyslipidemia. 11. Anemia-worsening s/p transfusion 12.Empyema/cavitary lesions by CT Recc: -Tele -Will hold clonidine TTS and cdecrease doses of BB/ACEI to allow patient to better tolerate -Plavix/asa held in the setting of anemia/resume when possible -HD for volume removal as tolerated only -continue TB treatment Problems: Consultation Date/Type/Reason Admit Date/Time Jul 24, 2016 at 12:53 Initial Consult Date 07/24/16 Type of Consultation: Cardiology Reason for Consultation HTN/abnl ecg Referring Provider: EVA COX MD Exam/Review of Systems Vital Signs Vitals Vital Signs Date Time Temp Pulse Resp B/P Pulse Ox O2 Delivery O2 Flow Rate FiO2 08/07/16 12:34 74 08/07/16 11:50 98.0 19 108/55 100 08/07/16 08:00 Nasal Cannula 2.0 Intake and Output 08/06/16 08/06/16 08/07/16 15:00 23:00 07:00 Intake Total 980 ml 450 ml Output Total 2500 ml 2650 ml Balance -1520 ml -2200 ml Exam Review of Systems: CONSTITUTIONAL: No fevers, chills. PULMONARY: No sob CARDIOVASCULAR: No chest pain/palpitations GASTROINTESTINAL: No nausea/vomiting. GENITOURINARY: No hematuria/dysuria. MUSCULOSKELETAL: No myagias/arthalgias. PSYCHIATRIC: The patient denies depression. NEUROLOGIC: lethargic Constitutional: alert Psych: no complaints Head: normocephalic ENMT: mucosa pink and moist Neck: jvd (8 cm water), supple Respiratory: diminished breath sounds (at bases/B) Cardiovascular: regular rate and rhythm Gastrointestinal: non-tender, soft Musculoskeletal: muscle tone (normal) Extremities: edema (none) Neurological: lethargic, other (No focal deficits) Results Result Diagram: 08/07/16 0715 08/07/16 0715 Results 24 hrs Laboratory Tests Test 08/06/16 17:35 08/06/16 20:38 08/07/16 04:36 08/07/16 07:15 Bedside Glucose 149 178 219 White Blood Count 14.0 H Red Blood Count 3.26 L Hemoglobin 10.2 L Hematocrit 31.5 #L Mean Corpuscular Volume 96.6 Mean Corpuscular Hemoglobin 31.3 Mean Corpuscular Hemoglobin Concent 32.4 Red Cell Distribution Width 16.9 H Platelet Count 188 Mean Platelet Volume 11.0 H Neutrophils % 84.9 H Lymphocytes % 4.1 L Monocytes % 8.5 Eosinophils % 1.8 Basophils % 0.1 Nucleated Red Blood Cells % 0.0 Neutrophils # 11.9 H Lymphocytes # 0.6 L Monocytes # 1.2 H Eosinophils # 0.3 Basophils # 0.0 Nucleated Red Blood Cells # 0.0 Sodium Level 134 L Potassium Level 4.9 Chloride Level 97 Carbon Dioxide Level 27 Anion Gap 15 Blood Urea Nitrogen 45 H Creatinine 4.64 H Glucose Level 220 # Calcium Level 7.9 L Test 08/07/16 07:29 08/07/16 11:34 08/07/16 12:42 Bedside Glucose 243 H 191 Lab Scanned Report REFERENCE LAB Medications Medications Current Medications Aspirin (Halfprin) 81 mg DAILY PO Last administered on 07/26/16 08:39; Admin Dose 81 MG; Start 07/25/16 at 09:00; Status Future Hold Atorvastatin Calcium (Lipitor) 10 mg QHS PO Last administered on 08/05/16 21:57 ; Admin Dose 10 MG; Start 07/24/16 at 21:00 Benazepril HCl (Lotensin) 40 mg BID PO Last administered on 08/06/16 08:20; Admin Dose 40 MG; Start 07/24/16 at 21:00 Cholecalciferol (Vitamin D) 400 units DAILY PO Last administered on 08/07/16 08 :46; Admin Dose 400 UNITS; Start 07/25/16 at 09:00 Famotidine (Pepcid) 20 mg DAILY PO Last administered on 08/07/16 08:46; Admin Dose 20 MG; Start 07/25/16 at 09:00 Ferrous Sulfate (Ferrous Sulfate (Ec)) 325 mg BID PO Last administered on 08:46; Admin Dose 325 MG; Start 07/24/16 at 21:00 Acetaminophen/ Hydrocodone Bitart ([place] (5/325)) 1 tab Q4H PRN PO PAIN Last administered on 08/06/16 18:02; Admin Dose 1 TAB; Start 07/24/16 at 17:00 Isoniazid (Isoniazid) 300 mg DAILY PO Last administered on 08/07/16 08:45; Admin Dose 300 MG; Start 07/24/16 at 15:30 Nifedipine (Procardia Xl) 60 mg BID PO Last administered on 08/06/16 08:20; Admin Dose 60 MG; Start 07/24/16 at 21:00 Pyridoxine HCl (Vitamin B6) 50 mg DAILY PO Last administered on 08/07/16 08:45 ; Admin Dose 50 MG; Start 07/25/16 at 09:00 Rifampin (Rifampin) 600 mg DAILY PO Last administered on 08/07/16 08:45; Admin Dose 600 MG; Start 07/25/16 at 09:00 Miscellaneous Information 1 ea NOTE XX ; Start 07/24/16 at 16:00 Glucose (Glutose) 15 gm Q15M PRN PO DECREASED GLUCOSE; Start 07/24/16 at 16:00 Glucose (Glutose) 22.5 gm Q15M PRN PO DECREASED GLUCOSE; Start 07/24/16 at 16: 00 Dextrose (D50w Syringe) 25 ml Q15M PRN IV DECREASED GLUCOSE; Start 07/24/16 at 16:00 Dextrose (D50w Syringe) 50 ml Q15M PRN IV DECREASED GLUCOSE; Start 07/24/16 at 16:00 Glucagon (Glucagen) 1 mg Q15M PRN IM DECREASED GLUCOSE; Start 07/24/16 at 16:00 Glucose (Glutose) 15 gm Q15M PRN BUCCAL DECREASED GLUCOSE; Start 07/24/16 at 16 :00 Ondansetron HCl (Zofran Inj) 4 mg Q4 PRN IV nausea Last administered on 11:20; Admin Dose 4 MG; Start 07/24/16 at 17:00 Metoclopramide HCl (Reglan) 5 mg Q4H PRN IV NAUSEA Last administered on 10:46; Admin Dose 5 MG; Start 07/24/16 at 22:30 Diagnostic Test (Pha) (Accu-Chek) 1 ea 02 XX Last administered on 08/06/16 02: 44; Admin Dose 1 EA; Start 07/26/16 at 12:00 Metoprolol Tartrate (Lopressor) 100 mg BID GTB Last administered on 08/06/16 08 :20; Admin Dose 100 MG; Start 07/26/16 at 13:30 Clonidine HCl (Catapres-Tts 2 Patch) 1 patch Q7D TRANSDERM Last administered on 08/03/16 06:32; Admin Dose 1 PATCH; Start 07/27/16 at 07:00 Pantoprazole (Protonix Tab) 40 mg DAILY@06 PO Last administered on 08/07/16 07: 01; Admin Dose 40 MG; Start 07/28/16 at 06:00 Hydralazine HCl (Apresoline) 20 mg Q4 PRN IV ELEVATED BLOOD PRESSURE Last administered on 08/04/16 16:35; Admin Dose 20 MG; Start 07/28/16 at 02:00 Doxazosin Mesylate (Cardura) 2 mg HS PO Last administered on 08/05/16 21:57; Admin Dose 2 MG; Start 07/28/16 at 21:00 Polyethylene Glycol (Miralax) 17 gm DAILY PRN GTB CONSTIPATION Last administered on 07/28/16 20:22; Admin Dose 17 GM; Start 07/28/16 at 19:30 Lorazepam (Ativan) 1 mg Q4H PRN IV anxiety Last administered on 07/30/16 20:48 ; Admin Dose 1 MG; Start 07/29/16 at 06:30 Ethambutol HCl (Myambutol) 900 mg TuThSa@20 PO Last administered on 08/05/16 21 :55; Admin Dose 900 MG; Start 07/31/16 at 20:00 Pyrazinamide (Pyrazinamide) 1,250 mg TuThSa@20 PO Last administered on 21:54; Admin Dose 1,250 MG; Start 07/31/16 at 20:00 Hydromorphone HCl (Dilaudid) 1 mg Q2H PRN IV pain Last administered on 11:20; Admin Dose 1 MG; Start 08/02/16 at 19:00 Hydralazine HCl 25 mg 25 mg Q8 PO Last administered on 08/06/16 05:44; Admin Dose 25 MG; Start 08/04/16 at 22:00 Norepinephrine/ Dextrose (Levophed/D5W) 500 ml @ 0 mls/hr TITRATE IV Last administered on 08/05/16 02:49; Admin Dose 0 MLS/HR; Start 08/05/16 at 01:30 SHERITA SCOTT Aug 07, 2016 12:47
[2016-08-07] MEDS: METOCLOPRAMIDE 10 MG INJ IV PRN ×2 (13:36→23:20)
--- NOTE | 2016-08-07 15:43 | PN ---
Date/Time of Note Date/Time of Note DATE: 08/07/16 TIME: 15:40 Assessment/Plan VTE Prophylaxis VTE Prophylaxis Intervention: other Lines/Catheters IV [facility] av fistula Urinary Cath still in place: Yes Assessment/Plan Assessment/Plan - Recurrent right pleural effusion consistent with empyema, cavitary lesions, status post right thoracotomy and pulmonary decortication on 08/04. -Hemoptysis, resolved. Dr. Dale is following in pulmonology consultation. Dr. Caitlin balderas is following an infection disease consultation. -Right former chest tube site bleeding, resolved. Dr. Martinez is following in thoracic surgery consultation. -Anemia of acute blood loss, patient had bleeding from the right femoral catheter as well as chest tube site on admission, status post blood transfusion , continue to monitor hemoglobin and hematocrit. Dr. Martinez is following in hematology consultation. 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 - End-stage renal disease, continue hemodialysis. Dr. Saunders is following in nephrology consultation. - Diabetes mellitus type 2, continue Lantus, pre-meal NovoLog and NovoLog per mild algorithm sliding scale. - Hypertension. Dr. De Santiago is following and cardiology consultation. Continue benazepril metoprolol hydralazine Procardia - Coronary artery disease, status post coronary artery bypass graft, s/p percutaneous transluminal coronary angioplasty and stent placement to left main and left anterior descending in 2014. - Permanent pacemaker. No acute issues. - Dyslipidemia. Continue Lipitor. Further recommendations based on clinical course. Plan of care discussed with Dr. Price. Subjective 24 Hr Interval Summary Free Text/Dictation NAD,resting, dw staff- no new issues reported. Eyes: no complaints ENT: no complaints Respiratory: pleuritic pain Cardiovascular: no complaints Gastrointestinal: no complaints Genitourinary: no complaints Musculoskeletal: no complaints Skin: no complaints Neurologic: no complaints Endocrine: no complaints Lymphatic: no complaints Exam/Review of Systems Vital Signs Vitals Vital Signs Date Time Temp Pulse Resp B/P Pulse Ox O2 Delivery O2 Flow Rate FiO2 08/07/16 12:34 74 08/07/16 11:50 98.0 19 108/55 100 08/07/16 08:00 Nasal Cannula 2.0 Intake and Output 08/06/16 08/06/16 08/07/16 15:00 23:00 07:00 Intake Total 980 ml 450 ml Output Total 2500 ml 2650 ml Balance -1520 ml -2200 ml Exam Constitutional: alert, oriented Psych: nl mood/affect Head: atraumatic Eyes: EOMI, PERRL, nl sclera ENMT: nl external ears & nose Neck: non-tender Respiratory: diminished breath sounds Cardiovascular: nl pulses Gastrointestinal: non-tender, soft Musculoskeletal: nl extremities to inspection Neurological: nl mental status, nl speech Skin: other Lymph: nontender Results Result Diagram: 08/07/1615 08/07/1615 Results 24 hrs Laboratory Tests Test 08/06/16 17:35 08/06/16 20:38 08/07/16 04:36 08/07/16 07:15 Bedside Glucose 149 178 219 White Blood Count 14.0 H Red Blood Count 3.26 L Hemoglobin 10.2 L Hematocrit 31.5 #L Mean Corpuscular Volume 96.6 Mean Corpuscular Hemoglobin 31.3 Mean Corpuscular Hemoglobin Concent 32.4 Red Cell Distribution Width 16.9 H Platelet Count 188 Mean Platelet Volume 11.0 H Neutrophils % 84.9 H Lymphocytes % 4.1 L Monocytes % 8.5 Eosinophils % 1.8 Basophils % 0.1 Nucleated Red Blood Cells % 0.0 Neutrophils # 11.9 H Lymphocytes # 0.6 L Monocytes # 1.2 H Eosinophils # 0.3 Basophils # 0.0 Nucleated Red Blood Cells # 0.0 Sodium Level 134 L Potassium Level 4.9 Chloride Level 97 Carbon Dioxide Level 27 Anion Gap 15 Blood Urea Nitrogen 45 H Creatinine 4.64 H Glucose Level 220 # Calcium Level 7.9 L Test 08/07/16 07:29 08/07/16 11:34 08/07/16 12:42 Bedside Glucose 243 H 191 Lab Scanned Report REFERENCE LAB Medications Medications Current Medications Aspirin (Halfprin) 81 mg DAILY PO Last administered on 07/26/16 08:39; Admin Dose 81 MG; Start 07/25/16 at 09:00; Status Future Hold Atorvastatin Calcium (Lipitor) 10 mg QHS PO Last administered on 08/05/16 21:57 ; Admin Dose 10 MG; Start 07/24/16 at 21:00 Cholecalciferol (Vitamin D) 400 units DAILY PO Last administered on 08/07/16 08 :46; Admin Dose 400 UNITS; Start 07/25/16 at 09:00 Famotidine (Pepcid) 20 mg DAILY PO Last administered on 08/07/16 08:46; Admin Dose 20 MG; Start 07/25/16 at 09:00 Ferrous Sulfate (Ferrous Sulfate (Ec)) 325 mg BID PO Last administered on 08:46; Admin Dose 325 MG; Start 07/24/16 at 21:00 Acetaminophen/ Hydrocodone Bitart ([place] (5/325)) 1 tab Q4H PRN PO PAIN Last administered on 08/06/16 18:02; Admin Dose 1 TAB; Start 07/24/16 at 17:00 Isoniazid (Isoniazid) 300 mg DAILY PO Last administered on 08/07/16 08:45; Admin Dose 300 MG; Start 07/24/16 at 15:30 Pyridoxine HCl (Vitamin B6) 50 mg DAILY PO Last administered on 08/07/16 08:45 ; Admin Dose 50 MG; Start 07/25/16 at 09:00 Rifampin (Rifampin) 600 mg DAILY PO Last administered on 08/07/16 08:45; Admin Dose 600 MG; Start 07/25/16 at 09:00 Miscellaneous Information 1 ea NOTE XX ; Start 07/24/16 at 16:00 Glucose (Glutose) 15 gm Q15M PRN PO DECREASED GLUCOSE; Start 07/24/16 at 16:00 Glucose (Glutose) 22.5 gm Q15M PRN PO DECREASED GLUCOSE; Start 07/24/16 at 16: 00 Dextrose (D50w Syringe) 25 ml Q15M PRN IV DECREASED GLUCOSE; Start 07/24/16 at 16:00 Dextrose (D50w Syringe) 50 ml Q15M PRN IV DECREASED GLUCOSE; Start 07/24/16 at 16:00 Glucagon (Glucagen) 1 mg Q15M PRN IM DECREASED GLUCOSE; Start 07/24/16 at 16:00 Glucose (Glutose) 15 gm Q15M PRN BUCCAL DECREASED GLUCOSE; Start 07/24/16 at 16 :00 Ondansetron HCl (Zofran Inj) 4 mg Q4 PRN IV nausea Last administered on 11:20; Admin Dose 4 MG; Start 07/24/16 at 17:00 Metoclopramide HCl (Reglan) 5 mg Q4H PRN IV NAUSEA Last administered on 13:36; Admin Dose 5 MG; Start 07/24/16 at 22:30 Diagnostic Test (Pha) (Accu-Chek) 1 ea 02 XX Last administered on 08/06/16 02: 44; Admin Dose 1 EA; Start 07/26/16 at 12:00 Metoprolol Tartrate (Lopressor) 100 mg BID GTB Last administered on 08/06/16 08 :20; Admin Dose 100 MG; Start 07/26/16 at 13:30 Clonidine HCl (Catapres-Tts 2 Patch) 1 patch Q7D TRANSDERM Last administered on 08/03/16 06:32; Admin Dose 1 PATCH; Start 07/27/16 at 07:00; Status Future Hold Pantoprazole (Protonix Tab) 40 mg DAILY@06 PO Last administered on 08/07/16 07: 01; Admin Dose 40 MG; Start 07/28/16 at 06:00 Hydralazine HCl (Apresoline) 20 mg Q4 PRN IV ELEVATED BLOOD PRESSURE Last administered on 08/04/16 16:35; Admin Dose 20 MG; Start 07/28/16 at 02:00 Doxazosin Mesylate (Cardura) 2 mg HS PO Last administered on 08/05/16 21:57; Admin Dose 2 MG; Start 07/28/16 at 21:00 Polyethylene Glycol (Miralax) 17 gm DAILY PRN GTB CONSTIPATION Last administered on 07/28/16 20:22; Admin Dose 17 GM; Start 07/28/16 at 19:30 Lorazepam (Ativan) 1 mg Q4H PRN IV anxiety Last administered on 07/30/16 20:48 ; Admin Dose 1 MG; Start 07/29/16 at 06:30 Ethambutol HCl (Myambutol) 900 mg TuThSa@20 PO Last administered on 08/05/16 21 :55; Admin Dose 900 MG; Start 07/31/16 at 20:00 Pyrazinamide (Pyrazinamide) 1,250 mg TuThSa@20 PO Last administered on 21:54; Admin Dose 1,250 MG; Start 07/31/16 at 20:00 Hydromorphone HCl (Dilaudid) 1 mg Q2H PRN IV pain Last administered on 11:20; Admin Dose 1 MG; Start 08/02/16 at 19:00 Hydralazine HCl 25 mg 25 mg Q8 PO Last administered on 08/06/16 05:44; Admin Dose 25 MG; Start 08/04/16 at 22:00 Norepinephrine/ Dextrose (Levophed/D5W) 500 ml @ 0 mls/hr TITRATE IV Last administered on 08/05/16 02:49; Admin Dose 0 MLS/HR; Start 08/05/16 at 01:30 Benazepril HCl (Lotensin) 20 mg BID PO ; Start 08/07/16 at 21:00 Nifedipine (Procardia Xl) 30 mg BID PO ; Start 08/07/16 at 21:00 PATRICIA RUEDA Aug 07, 2016 15:43
[2016-08-07] MEDS: HYDROCODONE/APAP (5/325) TAB PO PRN (16:21)
--- NOTE | 2016-08-07 19:24 | CONS ---
Date/Time of Note Date/Time of Note DATE: 08/07/16 TIME: 19:19 Assessment/Plan Assessment/Plan Chief Complaint/Hosp Course assessment/impression - possible tubercular empyema: R sided complex loculated air containing empyemas , visceral and parietal pleural calcifications. - a 35 mm lesion with possible cavitation in the anterior inferior RUL, possible recurrent tuberculosis - high risk for TB: history (originally from [facility], spends one month of each year in [facility], last in 09/2015), medical history (DM, ESRD), laboratory findings (positive quantiferon TB gold, granulomatous inflammation with focal necrosis on Bx of pleura) - AFB smear was negative x3, also M. tuberculosis DNA probe to the 1st sputum sample was undetectable in early 07/2016 - s/p first R VATS, total pulmonary decortication, R pleurodesis on 06/30/2016. Biopsy was negative for fungal stain and AFB stain (micro lab and pathology department), as well as malignancy. It showed granulomatous inflammation with focal necrosis and extensive hyalinization. - s/p second R VATS, decortication thoracotomy on 08/04/2016. Per Dr. Martinez, the tissue did not appear empyema. It was largely blood clots and tissue debris. Fluid was sent for cultures, but not tissue. Path showed blood and polarizable foreign material, no malignancy - sputum collected on 08/02/2016 was negative for mycobacterium tuberculosis DNA probe - h/o recurrent pleural effusion requiring thoracentesis approximately once a year, last performed in 04/2016 prior to this admission - positive quantiferon TB gold status of unknown duration. Per Pt, his past PPD was done in 2013, and was negative. - Our infection remote control mirror installer Lindsey contacted the TB control unit at [facility]: we learned on 07/11/2016 that Pt has h/o mycobacterial tuberculosis infection in 1997 and was treated between 1997 and 1998. - DM - Hgb A1c 5.2% 06/17/16 - ESRD on HD - CAD s/p CABG in 2010 and cardiac stent in 2013 - HIV screen negative in 07/2016 tested at [facility] recommendations - pending: mycobacterium tuberculosis DNA probe to fluid in GUIDO bulb was sent on 08/06/2016 - continue renally dosed RIPE plus vitamin B6 supplement (07/12/2016-) - check LFTs' weekly management d/w Pt Problems: Consultation Date/Type/Reason Admit Date/Time Jul 24, 2016 at 12:53 Initial Consult Date 07/25/16 Type of Consultation: ID Referring Provider: EVA COX MD 24 HR Interval Summary Constitutional: no complaints Detailed Summary Eyes: no complaints ENT: no complaints Respiratory: other (pain from R chest wall) Cardiovascular: no complaints Gastrointestinal: no complaints Genitourinary: other (anuric, on HD) Musculoskeletal: no complaints Skin: no complaints Neurologic: no complaints Exam/Review of Systems Vital Signs Vitals Vital Signs Date Time Temp Pulse Resp B/P Pulse Ox O2 Delivery O2 Flow Rate FiO2 08/07/16 17:21 2.0 08/07/16 16:40 71 08/07/16 15:44 98.0 18 91/51 94 08/07/16 08:00 Nasal Cannula Intake and Output 08/06/16 08/06/16 08/07/16 15:00 23:00 07:00 Intake Total 980 ml 450 ml Output Total 2500 ml 2650 ml Balance -1520 ml -2200 ml Exam Constitutional: alert, frail, oriented Psych: nl mood/affect, no complaints Head: atraumatic, normocephalic Eyes: nl conjunctiva, nl lids ENMT: nl external ears & nose, nl nasal mucosa & septum Neck: supple Respiratory: crackles/rales, other (chest tube contaning serosanguinous fluid with sediments) Cardiovascular: nl pulses, regular rate and rhythm Gastrointestinal: soft Musculoskeletal: nl extremities to inspection Results Result Diagram: 08/07/16 0715 08/07/16 0715 Results 24 hrs Laboratory Tests Test 08/06/16 20:38 08/07/16 04:36 08/07/16 07:15 08/07/16 07:29 Bedside Glucose 178 219 243 H White Blood Count 14.0 H Red Blood Count 3.26 L Hemoglobin 10.2 L Hematocrit 31.5 #L Mean Corpuscular Volume 96.6 Mean Corpuscular Hemoglobin 31.3 Mean Corpuscular Hemoglobin Concent 32.4 Red Cell Distribution Width 16.9 H Platelet Count 188 Mean Platelet Volume 11.0 H Neutrophils % 84.9 H Lymphocytes % 4.1 L Monocytes % 8.5 Eosinophils % 1.8 Basophils % 0.1 Nucleated Red Blood Cells % 0.0 Neutrophils # 11.9 H Lymphocytes # 0.6 L Monocytes # 1.2 H Eosinophils # 0.3 Basophils # 0.0 Nucleated Red Blood Cells # 0.0 Sodium Level 134 L Potassium Level 4.9 Chloride Level 97 Carbon Dioxide Level 27 Anion Gap 15 Blood Urea Nitrogen 45 H Creatinine 4.64 H Glucose Level 220 # Calcium Level 7.9 L Test 08/07/16 11:34 08/07/16 12:42 08/07/16 17:06 Bedside Glucose 191 282 H Lab Scanned Report REFERENCE LAB Medications Medications Current Medications Aspirin (Halfprin) 81 mg DAILY PO Last administered on 07/26/16 08:39; Admin Dose 81 MG; Start 07/25/16 at 09:00; Status Future Hold Atorvastatin Calcium (Lipitor) 10 mg QHS PO Last administered on 08/05/16 21:57 ; Admin Dose 10 MG; Start 07/24/16 at 21:00 Cholecalciferol (Vitamin D) 400 units DAILY PO Last administered on 08/07/16 08 :46; Admin Dose 400 UNITS; Start 07/25/16 at 09:00 Famotidine (Pepcid) 20 mg DAILY PO Last administered on 08/07/16 08:46; Admin Dose 20 MG; Start 07/25/16 at 09:00 Ferrous Sulfate (Ferrous Sulfate (Ec)) 325 mg BID PO Last administered on 08:46; Admin Dose 325 MG; Start 07/24/16 at 21:00 Acetaminophen/ Hydrocodone Bitart ([place] (5/325)) 1 tab Q4H PRN PO PAIN Last administered on 08/07/16 16:21; Admin Dose 1 TAB; Start 07/24/16 at 17:00 Isoniazid (Isoniazid) 300 mg DAILY PO Last administered on 08/07/16 08:45; Admin Dose 300 MG; Start 07/24/16 at 15:30 Pyridoxine HCl (Vitamin B6) 50 mg DAILY PO Last administered on 08/07/16 08:45 ; Admin Dose 50 MG; Start 07/25/16 at 09:00 Rifampin (Rifampin) 600 mg DAILY PO Last administered on 08/07/16 08:45; Admin Dose 600 MG; Start 07/25/16 at 09:00 Miscellaneous Information 1 ea NOTE XX ; Start 07/24/16 at 16:00 Glucose (Glutose) 15 gm Q15M PRN PO DECREASED GLUCOSE; Start 07/24/16 at 16:00 Glucose (Glutose) 22.5 gm Q15M PRN PO DECREASED GLUCOSE; Start 07/24/16 at 16: 00 Dextrose (D50w Syringe) 25 ml Q15M PRN IV DECREASED GLUCOSE; Start 07/24/16 at 16:00 Dextrose (D50w Syringe) 50 ml Q15M PRN IV DECREASED GLUCOSE; Start 07/24/16 at 16:00 Glucagon (Glucagen) 1 mg Q15M PRN IM DECREASED GLUCOSE; Start 07/24/16 at 16:00 Glucose (Glutose) 15 gm Q15M PRN BUCCAL DECREASED GLUCOSE; Start 07/24/16 at 16 :00 Ondansetron HCl (Zofran Inj) 4 mg Q4 PRN IV nausea Last administered on 11:20; Admin Dose 4 MG; Start 07/24/16 at 17:00 Metoclopramide HCl (Reglan) 5 mg Q4H PRN IV NAUSEA Last administered on 13:36; Admin Dose 5 MG; Start 07/24/16 at 22:30 Diagnostic Test (Pha) (Accu-Chek) 1 ea 02 XX Last administered on 08/06/16 02: 44; Admin Dose 1 EA; Start 07/26/16 at 12:00 Metoprolol Tartrate (Lopressor) 100 mg BID GTB Last administered on 08/06/16 08 :20; Admin Dose 100 MG; Start 07/26/16 at 13:30 Clonidine HCl (Catapres-Tts 2 Patch) 1 patch Q7D TRANSDERM Last administered on 08/03/16 06:32; Admin Dose 1 PATCH; Start 07/27/16 at 07:00; Status Future Hold Pantoprazole (Protonix Tab) 40 mg DAILY@06 PO Last administered on 08/07/16 07: 01; Admin Dose 40 MG; Start 07/28/16 at 06:00 Hydralazine HCl (Apresoline) 20 mg Q4 PRN IV ELEVATED BLOOD PRESSURE Last administered on 08/04/16 16:35; Admin Dose 20 MG; Start 07/28/16 at 02:00 Doxazosin Mesylate (Cardura) 2 mg HS PO Last administered on 08/05/16 21:57; Admin Dose 2 MG; Start 07/28/16 at 21:00 Polyethylene Glycol (Miralax) 17 gm DAILY PRN GTB CONSTIPATION Last administered on 07/28/16 20:22; Admin Dose 17 GM; Start 07/28/16 at 19:30 Lorazepam (Ativan) 1 mg Q4H PRN IV anxiety Last administered on 07/30/16 20:48 ; Admin Dose 1 MG; Start 07/29/16 at 06:30 Ethambutol HCl (Myambutol) 900 mg TuThSa@20 PO Last administered on 08/05/16 21 :55; Admin Dose 900 MG; Start 07/31/16 at 20:00 Pyrazinamide (Pyrazinamide) 1,250 mg TuThSa@20 PO Last administered on 21:54; Admin Dose 1,250 MG; Start 07/31/16 at 20:00 Hydromorphone HCl (Dilaudid) 1 mg Q2H PRN IV pain Last administered on 11:20; Admin Dose 1 MG; Start 08/02/16 at 19:00 Hydralazine HCl 25 mg 25 mg Q8 PO Last administered on 08/06/16 05:44; Admin Dose 25 MG; Start 08/04/16 at 22:00 Norepinephrine/ Dextrose (Levophed/D5W) 500 ml @ 0 mls/hr TITRATE IV Last administered on 08/05/16 02:49; Admin Dose 0 MLS/HR; Start 08/05/16 at 01:30 Benazepril HCl (Lotensin) 20 mg BID PO ; Start 08/07/16 at 21:00 Nifedipine (Procardia Xl) 30 mg BID PO ; Start 08/07/16 at 21:00 YUMIKO NICHOLSON M.D. Aug 07, 2016 19:24
--- NOTE | 2016-08-07 19:57 | PN ---
Date/Time of Note Date/Time of Note DATE: 08/07/16 TIME: 19:55 Assessment/Plan Lines/Catheters IV Catheter Type (from Nrsg): av fistula Jonas in Place (from Nrsg): Yes Assessment/Plan Chief Complaint/Hosp Course IMPRESSION: Right chest tube site bleeding, which has now subsided completely. Hgb stable Would monitor the hemoglobin levels and stop the antiplatelet. SP VATS Decortication CT output not accurately recorded will continue CT sxn monitor HGBl evels and CXR Problems: Subjective 24 Hr Interval Summary Constitutional: improved Pain Control: mild Exam/Review of Systems Vital Signs Vitals Vital Signs Date Time Temp Pulse Resp B/P Pulse Ox O2 Delivery O2 Flow Rate FiO2 08/07/16 17:21 2.0 08/07/16 16:40 71 08/07/16 15:44 98.0 18 91/51 94 08/07/16 08:00 Nasal Cannula Intake and Output 08/06/16 08/06/16 08/07/16 15:00 23:00 07:00 Intake Total 980 ml 450 ml Output Total 2500 ml 2650 ml Balance -1520 ml -2200 ml Exam ENMT: mucosa pink and moist, nl external ears & nose, nl lips & teeth, nl nasal mucosa & septum Neck: non-tender, supple Respiratory: clear to auscultation, normal air movement Cardiovascular: nl pulses, regular rate and rhythm Results Result Diagram: 08/07/16 0715 08/07/16 0715 LILIA FELIZ MD Aug 07, 2016 19:57
[2016-08-07] MEDS: BENAZEPRIL 20 MG TAB PO SCH (21:00)
[2016-08-07] MEDS: NIFEdipine (XL) 30 MG TAB PO SCH (21:00)
[2016-08-07] MEDS: DOXAZOSIN 2 MG TAB PO SCH (21:00)
--- NOTE | 2016-08-07 21:12 | CONS ---
Date/Time of Note Date/Time of Note DATE: 08/07/16 TIME: 21:10 Assessment/Plan Assessment/Plan Chief Complaint/Hosp Course IMPRESSION: 1. Recurrent pleural effusions. s/p vats 2. Lung infiltrate./cavitary lesion 3. chronic lung disease. 4. Hypertension. 5. Diabetes mellitus. 6. End-stage renal disease. 7. anemia. 8. cad. 9. Leukocytosis.better 10. ashd 11. PLEURAL EFFUSIN 12. The patient on anti-tuberculosis treatment. 13. 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 PLAN HD 3x wk per pt per id and [facility] Problems: Consultation Date/Type/Reason Admit Date/Time Jul 24, 2016 at 12:53 Initial Consult Date 07/25/16 Type of Consultation: renal Referring Provider: EVA COX MD 24 HR Interval Summary Constitutional: no complaints Exam/Review of Systems Vital Signs Vitals Vital Signs Date Time Temp Pulse Resp B/P Pulse Ox O2 Delivery O2 Flow Rate FiO2 08/07/16 20:20 71 08/07/16 20:13 98.0 20 107/60 100 08/07/16 17:21 2.0 08/07/16 08:00 Nasal Cannula Intake and Output 08/06/16 08/06/16 08/07/16 15:00 23:00 07:00 Intake Total 980 ml 450 ml Output Total 2500 ml 2650 ml Balance -1520 ml -2200 ml Exam Respiratory: diminished breath sounds Cardiovascular: regular rate and rhythm Gastrointestinal: bowel sounds (+), soft Musculoskeletal: nl extremities to inspection Extremities: normal pulses Results Result Diagram: 08/07/16 0715 08/07/16 0715 Results 24 hrs Laboratory Tests Test 08/07/16 04:36 08/07/16 07:15 08/07/16 07:29 08/07/16 11:34 Bedside Glucose 219 243 H 191 White Blood Count 14.0 H Red Blood Count 3.26 L Hemoglobin 10.2 L Hematocrit 31.5 #L Mean Corpuscular Volume 96.6 Mean Corpuscular Hemoglobin 31.3 Mean Corpuscular Hemoglobin Concent 32.4 Red Cell Distribution Width 16.9 H Platelet Count 188 Mean Platelet Volume 11.0 H Neutrophils % 84.9 H Lymphocytes % 4.1 L Monocytes % 8.5 Eosinophils % 1.8 Basophils % 0.1 Nucleated Red Blood Cells % 0.0 Neutrophils # 11.9 H Lymphocytes # 0.6 L Monocytes # 1.2 H Eosinophils # 0.3 Basophils # 0.0 Nucleated Red Blood Cells # 0.0 Sodium Level 134 L Potassium Level 4.9 Chloride Level 97 Carbon Dioxide Level 27 Anion Gap 15 Blood Urea Nitrogen 45 H Creatinine 4.64 H Glucose Level 220 # Calcium Level 7.9 L Test 08/07/16 12:42 08/07/16 17:06 08/07/16 19:45 Lab Scanned Report REFERENCE LAB Bedside Glucose 282 H 195 Medications Medications Current Medications Aspirin (Halfprin) 81 mg DAILY PO Last administered on 07/26/16 08:39; Admin Dose 81 MG; Start 07/25/16 at 09:00; Status Future Hold Atorvastatin Calcium (Lipitor) 10 mg QHS PO Last administered on 08/05/16 21:57 ; Admin Dose 10 MG; Start 07/24/16 at 21:00 Cholecalciferol (Vitamin D) 400 units DAILY PO Last administered on 08/07/16 08 :46; Admin Dose 400 UNITS; Start 07/25/16 at 09:00 Famotidine (Pepcid) 20 mg DAILY PO Last administered on 08/07/16 08:46; Admin Dose 20 MG; Start 07/25/16 at 09:00 Ferrous Sulfate (Ferrous Sulfate (Ec)) 325 mg BID PO Last administered on 08:46; Admin Dose 325 MG; Start 07/24/16 at 21:00 Acetaminophen/ Hydrocodone Bitart ([place] (5/325)) 1 tab Q4H PRN PO PAIN Last administered on 08/07/16 16:21; Admin Dose 1 TAB; Start 07/24/16 at 17:00 Isoniazid (Isoniazid) 300 mg DAILY PO Last administered on 08/07/16 08:45; Admin Dose 300 MG; Start 07/24/16 at 15:30 Pyridoxine HCl (Vitamin B6) 50 mg DAILY PO Last administered on 08/07/16 08:45 ; Admin Dose 50 MG; Start 07/25/16 at 09:00 Rifampin (Rifampin) 600 mg DAILY PO Last administered on 08/07/16 08:45; Admin Dose 600 MG; Start 07/25/16 at 09:00 Miscellaneous Information 1 ea NOTE XX ; Start 07/24/16 at 16:00 Glucose (Glutose) 15 gm Q15M PRN PO DECREASED GLUCOSE; Start 07/24/16 at 16:00 Glucose (Glutose) 22.5 gm Q15M PRN PO DECREASED GLUCOSE; Start 07/24/16 at 16: 00 Dextrose (D50w Syringe) 25 ml Q15M PRN IV DECREASED GLUCOSE; Start 07/24/16 at 16:00 Dextrose (D50w Syringe) 50 ml Q15M PRN IV DECREASED GLUCOSE; Start 07/24/16 at 16:00 Glucagon (Glucagen) 1 mg Q15M PRN IM DECREASED GLUCOSE; Start 07/24/16 at 16:00 Glucose (Glutose) 15 gm Q15M PRN BUCCAL DECREASED GLUCOSE; Start 07/24/16 at 16 :00 Ondansetron HCl (Zofran Inj) 4 mg Q4 PRN IV nausea Last administered on 20:41; Admin Dose 4 MG; Start 07/24/16 at 17:00 Metoclopramide HCl (Reglan) 5 mg Q4H PRN IV NAUSEA Last administered on 13:36; Admin Dose 5 MG; Start 07/24/16 at 22:30 Diagnostic Test (Pha) (Accu-Chek) 1 ea 02 XX Last administered on 08/06/16 02: 44; Admin Dose 1 EA; Start 07/26/16 at 12:00 Metoprolol Tartrate (Lopressor) 100 mg BID GTB Last administered on 08/06/16 08 :20; Admin Dose 100 MG; Start 07/26/16 at 13:30 Clonidine HCl (Catapres-Tts 2 Patch) 1 patch Q7D TRANSDERM Last administered on 08/03/16 06:32; Admin Dose 1 PATCH; Start 07/27/16 at 07:00; Status Future Hold Pantoprazole (Protonix Tab) 40 mg DAILY@06 PO Last administered on 08/07/16 07: 01; Admin Dose 40 MG; Start 07/28/16 at 06:00 Hydralazine HCl (Apresoline) 20 mg Q4 PRN IV ELEVATED BLOOD PRESSURE Last administered on 08/04/16 16:35; Admin Dose 20 MG; Start 07/28/16 at 02:00 Doxazosin Mesylate (Cardura) 2 mg HS PO Last administered on 08/05/16 21:57; Admin Dose 2 MG; Start 07/28/16 at 21:00 Polyethylene Glycol (Miralax) 17 gm DAILY PRN GTB CONSTIPATION Last administered on 07/28/16 20:22; Admin Dose 17 GM; Start 07/28/16 at 19:30 Lorazepam (Ativan) 1 mg Q4H PRN IV anxiety Last administered on 07/30/16 20:48 ; Admin Dose 1 MG; Start 07/29/16 at 06:30 Ethambutol HCl (Myambutol) 900 mg TuThSa@20 PO Last administered on 08/05/16 21 :55; Admin Dose 900 MG; Start 07/31/16 at 20:00 Pyrazinamide (Pyrazinamide) 1,250 mg TuThSa@20 PO Last administered on 21:54; Admin Dose 1,250 MG; Start 07/31/16 at 20:00 Hydromorphone HCl (Dilaudid) 1 mg Q2H PRN IV pain Last administered on 20:41; Admin Dose 1 MG; Start 08/02/16 at 19:00 Hydralazine HCl 25 mg 25 mg Q8 PO Last administered on 08/06/16 05:44; Admin Dose 25 MG; Start 08/04/16 at 22:00 Norepinephrine/ Dextrose (Levophed/D5W) 500 ml @ 0 mls/hr TITRATE IV Last administered on 08/05/16 02:49; Admin Dose 0 MLS/HR; Start 08/05/16 at 01:30 Benazepril HCl (Lotensin) 20 mg BID PO ; Start 08/07/16 at 21:00 Nifedipine (Procardia Xl) 30 mg BID PO ; Start 08/07/16 at 21:00 PAOLA MOODY MD Aug 07, 2016 21:11
[2016-08-07] MEDS: ATORVASTATIN 10 MG TAB PO SCH (21:32)
[2016-08-07] MEDS: PYRAZINAMIDE 500 MG TAB PO SCH (23:07)
[2016-08-07] MEDS: ETHAMBUTOL 400 MG TAB PO SCH (23:07)
[2016-08-08] VITALS (13 sets, daily range): BP systolic 83–128; BP diastolic 51–72; PULSE 71–85; RESP 18–20
[2016-08-08] MEDS: ACCUCHECK 2 AM XX SCH (02:00)
[2016-08-08] MEDS: PANTOPRAZOLE (EC) 40 MG TAB PO SCH (05:34)
[2016-08-08] MEDS: ONDANSETRON 4 MG INJ IV PRN ×5 (05:34→22:32)
[2016-08-08] MEDS: HYDROmorphONE 1 MG/ML SYG IV PRN ×4 (05:34→21:20)
[2016-08-08 07:08] LABS: ADD SCAN DIFF NO
[2016-08-08 07:13] LABS: ABNORMAL IP MESSAGE 1; BASOPHILS % 0.2 % (0.0-2.0); EOSINOPHILS # 0.3 10^3/ul (0.0-0.5); EOSINOPHILS % 2.4 % (0.0-7.0); HEMATOCRIT 32.8 % (42.0-52.0); HEMOGLOBIN 10.7 g/dl (14.0-18.0); LYMPHOCYTES # 0.6 10^3/ul (0.8-2.9); LYMPHOCYTES % 4.6 % (15.0-51.0); MEAN CORPUSCULAR HEMOGLOBIN 31.4 pg (29.0-33.0); MEAN CORPUSCULAR HGB CONC 32.6 g/dl (32.0-37.0); MEAN CORPUSCULAR VOLUME 96.2 fl (82.0-101.0); MEAN PLATELET VOLUME 10.8 fl (7.4-10.4); MONOCYTE # 1.2 10^3/ul (0.3-0.9); MONOCYTES % 9.8 % (0.0-11.0); NEUTROPHIL # 10.3 10^3/ul (1.6-7.5); NEUTROPHILS % 82.4 % (39.0-77.0); PLATELET COUNT 258 10^3/UL (140-415); RED BLOOD COUNT 3.41 10^6/ul (4.70-6.10); RED CELL DISTRIBUTION WIDTH 15.9 % (11.5-14.5); WHITE BLOOD COUNT 12.5 10^3/ul (4.8-10.8)
[2016-08-08 07:41] LABS: CALCIUM 7.6 mg/dl (8.4-10.2); CREATININE 6.39 mg/dl (0.61-1.24); POTASSIUM 5.5 mmol/L (3.5-5.1)
[2016-08-08] MEDS: METOPROLOL 100 MG TAB GTB SCH (07:56)
[2016-08-08] MEDS: NIFEdipine (XL) 30 MG TAB PO SCH ×2 (07:57→21:00)
[2016-08-08] MEDS: BENAZEPRIL 20 MG TAB PO SCH (07:57)
[2016-08-08] MEDS: SEVELAMER CARBONATE 0.8 GM PKT PO SCH ×3 (08:13→17:29)
[2016-08-08] MEDS: FERROUS SULFATE (EC) 325 MG TAB PO SCH ×2 (08:13→21:09)
[2016-08-08] MEDS: CHOLECALCIFEROL 400 UNITS TAB PO SCH (08:13)
[2016-08-08] MEDS: FAMOTIDINE 20 MG TAB PO SCH (08:14)
[2016-08-08] MEDS: CALCIUM ACETATE 667 MG CAP PO SCH ×3 (08:14→17:29)
[2016-08-08] MEDS: PYRIDOXINE 50 MG TAB PO SCH (08:14)
[2016-08-08] MEDS: RIFAMPIN 300 MG CAP PO SCH (08:14)
[2016-08-08] MEDS: ISONIAZID 300 MG TAB PO SCH (08:14)
[2016-08-08] MEDS: Insulin NOVOLOG SS MILD Algorithm (SS with meals and bedtime) SC SCH ×4 (08:19→21:12)
[2016-08-08] MEDS: INSULIN ASPART [NOVOLOG] 3 ML PEN SC SCH ×2 (08:20→11:50)
[2016-08-08] MEDS ORDERED: NA POLYST SULFON 15 GM/60 ML BTL PO ONE (10:30)
--- NOTE | 2016-08-08 12:16 | CONS ---
Date/Time of Note Date/Time of Note DATE: 08/08/16 TIME: 12:14 Assessment/Plan Assessment/Plan Chief Complaint/Hosp Course assessment/impression - possible tubercular empyema: R sided complex loculated air containing empyemas , visceral and parietal pleural calcifications. - a 35 mm lesion with possible cavitation in the anterior inferior RUL, possible recurrent tuberculosis - high risk for TB: history (originally from [facility], spends one month of each year in [facility], last in 09/2015), medical history (DM, ESRD), laboratory findings (positive quantiferon TB gold, granulomatous inflammation with focal necrosis on Bx of pleura) - AFB smear was negative x3, also M. tuberculosis DNA probe to the 1st sputum sample was undetectable in early 07/2016 - s/p first R VATS, total pulmonary decortication, R pleurodesis on 06/30/2016. Biopsy was negative for fungal stain and AFB stain (micro lab and pathology department), as well as malignancy. It showed granulomatous inflammation with focal necrosis and extensive hyalinization. - s/p second R VATS, decortication thoracotomy on 08/04/2016. Per Dr. Martinez, the tissue did not appear empyema. It was largely blood clots and tissue debris. Fluid was sent for cultures, but not tissue. Path showed blood and polarizable foreign material, no malignancy - sputum collected on 08/02/2016 was negative for mycobacterium tuberculosis DNA probe - h/o recurrent pleural effusion requiring thoracentesis approximately once a year, last performed in 04/2016 prior to this admission - positive quantiferon TB gold status of unknown duration. Per Pt, his past PPD was done in 2013, and was negative. 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 - DM - Hgb A1c 5.2% 06/17/16 - ESRD on HD - CAD s/p CABG in 2010 and cardiac stent in 2013 - HIV screen negative in 07/2016 tested at [facility] recommendations - pending: mycobacterium tuberculosis DNA probe to fluid in GUIDO bulb was sent on 08/06/2016 - continue renally dosed RIPE plus vitamin B6 supplement (07/12/2016-) - check LFTs' weekly management d/w Pt, his Problems: Consultation Date/Type/Reason Admit Date/Time Jul 24, 2016 at 12:53 Initial Consult Date 07/25/16 Type of Consultation: ID Referring Provider: EVA COX MD 24 HR Interval Summary Free Text/Dictation Hypotensive after receiving dilaudid Constitutional: poor po Detailed Summary Eyes: no complaints ENT: no complaints Respiratory: pain (chest tube site) Cardiovascular: no complaints Gastrointestinal: no complaints Genitourinary: other (anuric) Musculoskeletal: no complaints Skin: no complaints Neurologic: no complaints Exam/Review of Systems Vital Signs Vitals Vital Signs Date Time Temp Pulse Resp B/P Pulse Ox O2 Delivery O2 Flow Rate FiO2 08/08/16 11:45 98.0 76 19 83/53 95 08/08/16 08:00 Nasal Cannula 2.0 Intake and Output 08/07/16 08/07/16 08/08/16 15:00 23:00 07:00 Intake Total 400 ml 480 ml Output Total 550 ml 450 ml Balance -150 ml 30 ml Exam Constitutional: frail Psych: no complaints Head: atraumatic, normocephalic Eyes: nl conjunctiva, nl lids ENMT: mucosa pink and moist, nl external ears & nose, nl nasal mucosa & septum Neck: supple Respiratory: diminished breath sounds, other (chest tube on R chest wall, clean , serosanguinous fluid with sediments) Cardiovascular: nl pulses, regular rate and rhythm Gastrointestinal: non-tender, soft Musculoskeletal: nl extremities to inspection Results Result Diagram: 08/08/16 0610 08/08/16 0610 Results 24 hrs Laboratory Tests Test 08/07/16 12:42 08/07/16 17:06 08/07/16 19:45 08/07/16 21:31 Lab Scanned Report REFERENCE LAB Bedside Glucose 282 H 195 193 Test 08/08/16 01:43 08/08/16 06:10 08/08/16 07:50 08/08/16 11:33 Bedside Glucose 193 222 H 207 White Blood Count 12.5 H Red Blood Count 3.41 L Hemoglobin 10.7 L Hematocrit 32.8 L Mean Corpuscular Volume 96.2 Mean Corpuscular Hemoglobin 31.4 Mean Corpuscular Hemoglobin Concent 32.6 Red Cell Distribution Width 15.9 H Platelet Count 258 # Mean Platelet Volume 10.8 H Neutrophils % 82.4 H Lymphocytes % 4.6 L Monocytes % 9.8 Eosinophils % 2.4 Basophils % 0.2 Nucleated Red Blood Cells % 0.0 Neutrophils # 10.3 H Lymphocytes # 0.6 L Monocytes # 1.2 H Eosinophils # 0.3 Basophils # 0.0 Nucleated Red Blood Cells # 0.0 Sodium Level 129 L Potassium Level 5.5 H Chloride Level 96 L Carbon Dioxide Level 23 Anion Gap 16 Blood Urea Nitrogen 73 H Creatinine 6.39 H Glucose Level 224 H Calcium Level 7.6 L Medications Medications Current Medications Aspirin (Halfprin) 81 mg DAILY PO Last administered on 07/26/16 08:39; Admin Dose 81 MG; Start 07/25/16 at 09:00; Status Future Hold Atorvastatin Calcium (Lipitor) 10 mg QHS PO Last administered on 08/07/16 21:32 ; Admin Dose 10 MG; Start 07/24/16 at 21:00 Cholecalciferol (Vitamin D) 400 units DAILY PO Last administered on 08/08/16 08 :13; Admin Dose 400 UNITS; Start 07/25/16 at 09:00 Famotidine (Pepcid) 20 mg DAILY PO Last administered on 08/08/16 08:14; Admin Dose 20 MG; Start 07/25/16 at 09:00 Ferrous Sulfate (Ferrous Sulfate (Ec)) 325 mg BID PO Last administered on 08:13; Admin Dose 325 MG; Start 07/24/16 at 21:00 Acetaminophen/ Hydrocodone Bitart ([place] (5/325)) 1 tab Q4H PRN PO PAIN Last administered on 08/07/16 16:21; Admin Dose 1 TAB; Start 07/24/16 at 17:00 Isoniazid (Isoniazid) 300 mg DAILY PO Last administered on 08/08/16 08:14; Admin Dose 300 MG; Start 07/24/16 at 15:30 Pyridoxine HCl (Vitamin B6) 50 mg DAILY PO Last administered on 08/08/16 08:14 ; Admin Dose 50 MG; Start 07/25/16 at 09:00 Rifampin (Rifampin) 600 mg DAILY PO Last administered on 08/08/16 08:14; Admin Dose 600 MG; Start 07/25/16 at 09:00 Miscellaneous Information 1 ea NOTE XX ; Start 07/24/16 at 16:00 Glucose (Glutose) 15 gm Q15M PRN PO DECREASED GLUCOSE; Start 07/24/16 at 16:00 Glucose (Glutose) 22.5 gm Q15M PRN PO DECREASED GLUCOSE; Start 07/24/16 at 16: 00 Dextrose (D50w Syringe) 25 ml Q15M PRN IV DECREASED GLUCOSE; Start 07/24/16 at 16:00 Dextrose (D50w Syringe) 50 ml Q15M PRN IV DECREASED GLUCOSE; Start 07/24/16 at 16:00 Glucagon (Glucagen) 1 mg Q15M PRN IM DECREASED GLUCOSE; Start 07/24/16 at 16:00 Glucose (Glutose) 15 gm Q15M PRN BUCCAL DECREASED GLUCOSE; Start 07/24/16 at 16 :00 Ondansetron HCl (Zofran Inj) 4 mg Q4 PRN IV nausea Last administered on 10:24; Admin Dose 4 MG; Start 07/24/16 at 17:00 Metoclopramide HCl (Reglan) 5 mg Q4H PRN IV NAUSEA Last administered on 23:20; Admin Dose 5 MG; Start 07/24/16 at 22:30 Diagnostic Test (Pha) (Accu-Chek) 1 ea 02 XX Last administered on 08/08/16 02: 00; Admin Dose 1 EA; Start 07/26/16 at 12:00 Metoprolol Tartrate (Lopressor) 100 mg BID GTB Last administered on 08/06/16 08 :20; Admin Dose 100 MG; Start 07/26/16 at 13:30 Clonidine HCl (Catapres-Tts 2 Patch) 1 patch Q7D TRANSDERM Last administered on 08/03/16 06:32; Admin Dose 1 PATCH; Start 07/27/16 at 07:00; Status Future Hold Pantoprazole (Protonix Tab) 40 mg DAILY@06 PO Last administered on 08/08/16 05: 34; Admin Dose 40 MG; Start 07/28/16 at 06:00 Hydralazine HCl (Apresoline) 20 mg Q4 PRN IV ELEVATED BLOOD PRESSURE Last administered on 08/04/16 16:35; Admin Dose 20 MG; Start 07/28/16 at 02:00 Doxazosin Mesylate (Cardura) 2 mg HS PO Last administered on 08/05/16 21:57; Admin Dose 2 MG; Start 07/28/16 at 21:00 Polyethylene Glycol (Miralax) 17 gm DAILY PRN GTB CONSTIPATION Last administered on 07/28/16 20:22; Admin Dose 17 GM; Start 07/28/16 at 19:30 Lorazepam (Ativan) 1 mg Q4H PRN IV anxiety Last administered on 07/30/16 20:48 ; Admin Dose 1 MG; Start 07/29/16 at 06:30 Ethambutol HCl (Myambutol) 900 mg TuThSa@20 PO Last administered on 08/07/16 23 :07; Admin Dose 900 MG; Start 07/31/16 at 20:00 Pyrazinamide (Pyrazinamide) 1,250 mg TuThSa@20 PO Last administered on 23:07; Admin Dose 1,250 MG; Start 07/31/16 at 20:00 Hydromorphone HCl (Dilaudid) 1 mg Q2H PRN IV pain Last administered on 10:24; Admin Dose 1 MG; Start 08/02/16 at 19:00 Hydralazine HCl 25 mg 25 mg Q8 PO Last administered on 08/06/16 05:44; Admin Dose 25 MG; Start 08/04/16 at 22:00 Norepinephrine/ Dextrose (Levophed/D5W) 500 ml @ 0 mls/hr TITRATE IV Last administered on 08/05/16 02:49; Admin Dose 0 MLS/HR; Start 08/05/16 at 01:30 Benazepril HCl (Lotensin) 20 mg BID PO ; Start 08/07/16 at 21:00 Nifedipine (Procardia Xl) 30 mg BID PO ; Start 08/07/16 at 21:00 YUMIKO NICHOLSON M.D. Aug 08, 2016 12:16
--- NOTE | 2016-08-08 13:01 | PN ---
Date/Time of Note Date/Time of Note DATE: 08/08/16 TIME: 12:58 Assessment/Plan VTE Prophylaxis VTE Prophylaxis Intervention: SCD's Lines/Catheters [facility] av fistula Urinary Cath still in place: Yes Reason Cath still needed: urinary retention Assessment/Plan Chief Complaint/Hosp Course Assessment and plan: - Recurrent right pleural effusion consistent with empyema, cavitary lesions, status post right thoracotomy and pulmonary decortication on 08/04. -Hemoptysis, resolved. Dr. Dale is following in pulmonology consultation. Dr. Caitlin balderas is following an infection disease consultation. -Right former chest tube site bleeding, resolved. Dr. Martinez is following in thoracic surgery consultation. -Anemia of acute blood loss, patient had bleeding from the right femoral catheter as well as chest tube site on admission, status post blood transfusion , continue to monitor hemoglobin and hematocrit. Dr. Martinez is following in hematology consultation. 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 - End-stage renal disease, continue hemodialysis. Dr. Saunders is following in nephrology consultation. - Diabetes mellitus type 2, continue Lantus, pre-meal NovoLog and NovoLog per mild algorithm sliding scale. - Hypertension. Dr. De Santiago is following and cardiology consultation. Continue benazepril metoprolol hydralazine Procardia - Coronary artery disease, status post coronary artery bypass graft, s/p percutaneous transluminal coronary angioplasty and stent placement to left main and left anterior descending in 2014. - Permanent pacemaker. No acute issues. - Dyslipidemia. Continue Lipitor. Further recommendations based on clinical course. Plan of care discussed with Dr. Price. Problems: Subjective 24 Hr Interval Summary Free Text/Dictation Patient is slightly hypertensive, denies any nausea vomiting, denies shortness of breath. Exam/Review of Systems Vital Signs Vitals Vital Signs Date Time Temp Pulse Resp B/P Pulse Ox O2 Delivery O2 Flow Rate FiO2 08/08/16 12:25 85 08/08/16 12:15 94/61 08/08/16 11:45 98.0 19 95 08/08/16 08:00 Nasal Cannula 2.0 Intake and Output 08/07/16 08/07/16 08/08/16 15:00 23:00 07:00 Intake Total 400 ml 480 ml Output Total 550 ml 450 ml Balance -150 ml 30 ml Exam Constitutional: alert, oriented Psych: no complaints Head: atraumatic, normocephalic ENMT: nl external ears & nose Neck: non-tender, supple Respiratory: clear to auscultation, normal air movement Cardiovascular: other (Left chest permanent pacemaker), regular rate and rhythm Gastrointestinal: bowel sounds, soft Extremities: normal pulses 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 R CT Results Result Diagram: 08/08/16 0610 08/08/16 0610 Results 24 hrs Laboratory Tests Test 08/07/16 17:06 08/07/16 19:45 08/07/16 21:31 08/08/16 01:43 Bedside Glucose 282 H 195 193 193 Test 08/08/16 06:10 08/08/16 07:50 08/08/16 11:33 White Blood Count 12.5 H Red Blood Count 3.41 L Hemoglobin 10.7 L Hematocrit 32.8 L Mean Corpuscular Volume 96.2 Mean Corpuscular Hemoglobin 31.4 Mean Corpuscular Hemoglobin Concent 32.6 Red Cell Distribution Width 15.9 H Platelet Count 258 # Mean Platelet Volume 10.8 H Neutrophils % 82.4 H Lymphocytes % 4.6 L Monocytes % 9.8 Eosinophils % 2.4 Basophils % 0.2 Nucleated Red Blood Cells % 0.0 Neutrophils # 10.3 H Lymphocytes # 0.6 L Monocytes # 1.2 H Eosinophils # 0.3 Basophils # 0.0 Nucleated Red Blood Cells # 0.0 Sodium Level 129 L Potassium Level 5.5 H Chloride Level 96 L Carbon Dioxide Level 23 Anion Gap 16 Blood Urea Nitrogen 73 H Creatinine 6.39 H Glucose Level 224 H Calcium Level 7.6 L Bedside Glucose 222 H 207 Medications Medications Current Medications Aspirin (Halfprin) 81 mg DAILY PO Last administered on 07/26/16 08:39; Admin Dose 81 MG; Start 07/25/16 at 09:00; Status Future Hold Atorvastatin Calcium (Lipitor) 10 mg QHS PO Last administered on 08/07/16 21:32 ; Admin Dose 10 MG; Start 07/24/16 at 21:00 Cholecalciferol (Vitamin D) 400 units DAILY PO Last administered on 08/08/16 08 :13; Admin Dose 400 UNITS; Start 07/25/16 at 09:00 Famotidine (Pepcid) 20 mg DAILY PO Last administered on 08/08/16 08:14; Admin Dose 20 MG; Start 07/25/16 at 09:00 Ferrous Sulfate (Ferrous Sulfate (Ec)) 325 mg BID PO Last administered on 08:13; Admin Dose 325 MG; Start 07/24/16 at 21:00 Acetaminophen/ Hydrocodone Bitart ([place] (5/325)) 1 tab Q4H PRN PO PAIN Last administered on 08/07/16 16:21; Admin Dose 1 TAB; Start 07/24/16 at 17:00 Isoniazid (Isoniazid) 300 mg DAILY PO Last administered on 08/08/16 08:14; Admin Dose 300 MG; Start 07/24/16 at 15:30 Pyridoxine HCl (Vitamin B6) 50 mg DAILY PO Last administered on 08/08/16 08:14 ; Admin Dose 50 MG; Start 07/25/16 at 09:00 Rifampin (Rifampin) 600 mg DAILY PO Last administered on 08/08/16 08:14; Admin Dose 600 MG; Start 07/25/16 at 09:00 Miscellaneous Information 1 ea NOTE XX ; Start 07/24/16 at 16:00 Glucose (Glutose) 15 gm Q15M PRN PO DECREASED GLUCOSE; Start 07/24/16 at 16:00 Glucose (Glutose) 22.5 gm Q15M PRN PO DECREASED GLUCOSE; Start 07/24/16 at 16: 00 Dextrose (D50w Syringe) 25 ml Q15M PRN IV DECREASED GLUCOSE; Start 07/24/16 at 16:00 Dextrose (D50w Syringe) 50 ml Q15M PRN IV DECREASED GLUCOSE; Start 07/24/16 at 16:00 Glucagon (Glucagen) 1 mg Q15M PRN IM DECREASED GLUCOSE; Start 07/24/16 at 16:00 Glucose (Glutose) 15 gm Q15M PRN BUCCAL DECREASED GLUCOSE; Start 07/24/16 at 16 :00 Ondansetron HCl (Zofran Inj) 4 mg Q4 PRN IV nausea Last administered on 10:24; Admin Dose 4 MG; Start 07/24/16 at 17:00 Metoclopramide HCl (Reglan) 5 mg Q4H PRN IV NAUSEA Last administered on 23:20; Admin Dose 5 MG; Start 07/24/16 at 22:30 Diagnostic Test (Pha) (Accu-Chek) 1 ea 02 XX Last administered on 08/08/16 02: 00; Admin Dose 1 EA; Start 07/26/16 at 12:00 Metoprolol Tartrate (Lopressor) 100 mg BID GTB Last administered on 08/06/16 08 :20; Admin Dose 100 MG; Start 07/26/16 at 13:30 Clonidine HCl (Catapres-Tts 2 Patch) 1 patch Q7D TRANSDERM Last administered on 08/03/16 06:32; Admin Dose 1 PATCH; Start 07/27/16 at 07:00; Status Future Hold Pantoprazole (Protonix Tab) 40 mg DAILY@06 PO Last administered on 08/08/16 05: 34; Admin Dose 40 MG; Start 07/28/16 at 06:00 Hydralazine HCl (Apresoline) 20 mg Q4 PRN IV ELEVATED BLOOD PRESSURE Last administered on 08/04/16 16:35; Admin Dose 20 MG; Start 07/28/16 at 02:00 Doxazosin Mesylate (Cardura) 2 mg HS PO Last administered on 08/05/16 21:57; Admin Dose 2 MG; Start 07/28/16 at 21:00 Polyethylene Glycol (Miralax) 17 gm DAILY PRN GTB CONSTIPATION Last administered on 07/28/16 20:22; Admin Dose 17 GM; Start 07/28/16 at 19:30 Lorazepam (Ativan) 1 mg Q4H PRN IV anxiety Last administered on 07/30/16 20:48 ; Admin Dose 1 MG; Start 07/29/16 at 06:30 Ethambutol HCl (Myambutol) 900 mg TuThSa@20 PO Last administered on 08/07/16 23 :07; Admin Dose 900 MG; Start 07/31/16 at 20:00 Pyrazinamide (Pyrazinamide) 1,250 mg TuThSa@20 PO Last administered on 23:07; Admin Dose 1,250 MG; Start 07/31/16 at 20:00 Hydromorphone HCl (Dilaudid) 1 mg Q2H PRN IV pain Last administered on 10:24; Admin Dose 1 MG; Start 08/02/16 at 19:00 Hydralazine HCl 25 mg 25 mg Q8 PO Last administered on 08/06/16 05:44; Admin Dose 25 MG; Start 08/04/16 at 22:00 Norepinephrine/ Dextrose (Levophed/D5W) 500 ml @ 0 mls/hr TITRATE IV Last administered on 08/05/16 02:49; Admin Dose 0 MLS/HR; Start 08/05/16 at 01:30 Benazepril HCl (Lotensin) 20 mg BID PO ; Start 08/07/16 at 21:00 Nifedipine (Procardia Xl) 30 mg BID PO ; Start 08/07/16 at 21:00 Zolpidem Tartrate (Ambien) 5 mg HS PRN PO INSOMNIA; Start 08/08/16 at 21:00 CECILIA DAMICO Aug 08, 2016 13:01
--- NOTE | 2016-08-08 13:50 | CONS ---
Date/Time of Note Date/Time of Note DATE: 08/08/16 TIME: 13:44 Assessment/Plan Assessment/Plan Chief Complaint/Hosp Course IMPRESSION: 1. Abnormal electrocardiogram, assess for acute coronary syndrome with no current chest pain and recently negative stress test.-negative troponin x 3 2. History of a percutaneous transluminal coronary angioplasty and stent placement to left main and left anterior descending in 2014. 3. History of coronary artery bypass graft surgery. 4. Video assisted thoracoscopic surgery pleurodesis with leakage from the chest tube site.- now s/p repeat VATS/pleurodesis with CT 5. Shortness of breath. 6. End-stage renal disease on hemodialysis. 7. Tuberculosis, on therapy. 8. Hypertension-currently borderline Hotn 9. Diabetes mellitus. 10. Dyslipidemia. 11. Anemia-worsening s/p transfusion 12.Empyema/cavitary lesions by CT Recc: -Tele -Will decrease dose of anti-hypertensives -Plavix/asa held in the setting of anemia/resume when possible -HD for volume removal as tolerated only -continue TB treatment Problems: Consultation Date/Type/Reason Admit Date/Time Jul 24, 2016 at 12:53 Initial Consult Date 07/24/16 Type of Consultation: Cardiology Reason for Consultation abnl ecg Referring Provider: EVA COX MD Exam/Review of Systems Vital Signs Vitals Vital Signs Date Time Temp Pulse Resp B/P Pulse Ox O2 Delivery O2 Flow Rate FiO2 08/08/16 12:25 85 08/08/16 12:15 94/61 08/08/16 11:45 98.0 19 95 08/08/16 08:00 Nasal Cannula 2.0 Intake and Output 08/07/16 08/07/16 08/08/16 15:00 23:00 07:00 Intake Total 400 ml 480 ml Output Total 550 ml 450 ml Balance -150 ml 30 ml Exam Review of Systems: CONSTITUTIONAL: No fevers, chills. PULMONARY: No sob CARDIOVASCULAR: No chest pain/palpitations GASTROINTESTINAL: No nausea/vomiting. GENITOURINARY: No hematuria/dysuria. MUSCULOSKELETAL: No myagias/arthalgias. PSYCHIATRIC: The patient denies depression. NEUROLOGIC: No weakness Constitutional: alert Psych: no complaints Head: normocephalic ENMT: mucosa pink and moist Neck: jvd, supple Respiratory: diminished breath sounds Cardiovascular: regular rate and rhythm Gastrointestinal: non-tender, soft Musculoskeletal: muscle tone Extremities: normal pulses Neurological: confused Results Result Diagram: 08/08/16 0610 08/08/16 0610 Results 24 hrs Laboratory Tests Test 08/07/16 17:06 08/07/16 19:45 08/07/16 21:31 08/08/16 01:43 Bedside Glucose 282 H 195 193 193 Test 08/08/16 06:10 08/08/16 07:50 08/08/16 11:33 White Blood Count 12.5 H Red Blood Count 3.41 L Hemoglobin 10.7 L Hematocrit 32.8 L Mean Corpuscular Volume 96.2 Mean Corpuscular Hemoglobin 31.4 Mean Corpuscular Hemoglobin Concent 32.6 Red Cell Distribution Width 15.9 H Platelet Count 258 # Mean Platelet Volume 10.8 H Neutrophils % 82.4 H Lymphocytes % 4.6 L Monocytes % 9.8 Eosinophils % 2.4 Basophils % 0.2 Nucleated Red Blood Cells % 0.0 Neutrophils # 10.3 H Lymphocytes # 0.6 L Monocytes # 1.2 H Eosinophils # 0.3 Basophils # 0.0 Nucleated Red Blood Cells # 0.0 Sodium Level 129 L Potassium Level 5.5 H Chloride Level 96 L Carbon Dioxide Level 23 Anion Gap 16 Blood Urea Nitrogen 73 H Creatinine 6.39 H Glucose Level 224 H Calcium Level 7.6 L Bedside Glucose 222 H 207 Medications Medications Current Medications Aspirin (Halfprin) 81 mg DAILY PO Last administered on 07/26/16 08:39; Admin Dose 81 MG; Start 07/25/16 at 09:00; Status Future Hold Atorvastatin Calcium (Lipitor) 10 mg QHS PO Last administered on 08/07/16 21:32 ; Admin Dose 10 MG; Start 07/24/16 at 21:00 Cholecalciferol (Vitamin D) 400 units DAILY PO Last administered on 08/08/16 08 :13; Admin Dose 400 UNITS; Start 07/25/16 at 09:00 Famotidine (Pepcid) 20 mg DAILY PO Last administered on 08/08/16 08:14; Admin Dose 20 MG; Start 07/25/16 at 09:00 Ferrous Sulfate (Ferrous Sulfate (Ec)) 325 mg BID PO Last administered on 08:13; Admin Dose 325 MG; Start 07/24/16 at 21:00 Acetaminophen/ Hydrocodone Bitart ([place] (5/325)) 1 tab Q4H PRN PO PAIN Last administered on 08/07/16 16:21; Admin Dose 1 TAB; Start 07/24/16 at 17:00 Isoniazid (Isoniazid) 300 mg DAILY PO Last administered on 08/08/16 08:14; Admin Dose 300 MG; Start 07/24/16 at 15:30 Pyridoxine HCl (Vitamin B6) 50 mg DAILY PO Last administered on 08/08/16 08:14 ; Admin Dose 50 MG; Start 07/25/16 at 09:00 Rifampin (Rifampin) 600 mg DAILY PO Last administered on 08/08/16 08:14; Admin Dose 600 MG; Start 07/25/16 at 09:00 Miscellaneous Information 1 ea NOTE XX ; Start 07/24/16 at 16:00 Glucose (Glutose) 15 gm Q15M PRN PO DECREASED GLUCOSE; Start 07/24/16 at 16:00 Glucose (Glutose) 22.5 gm Q15M PRN PO DECREASED GLUCOSE; Start 07/24/16 at 16: 00 Dextrose (D50w Syringe) 25 ml Q15M PRN IV DECREASED GLUCOSE; Start 07/24/16 at 16:00 Dextrose (D50w Syringe) 50 ml Q15M PRN IV DECREASED GLUCOSE; Start 07/24/16 at 16:00 Glucagon (Glucagen) 1 mg Q15M PRN IM DECREASED GLUCOSE; Start 07/24/16 at 16:00 Glucose (Glutose) 15 gm Q15M PRN BUCCAL DECREASED GLUCOSE; Start 07/24/16 at 16 :00 Ondansetron HCl (Zofran Inj) 4 mg Q4 PRN IV nausea Last administered on 10:24; Admin Dose 4 MG; Start 07/24/16 at 17:00 Metoclopramide HCl (Reglan) 5 mg Q4H PRN IV NAUSEA Last administered on 23:20; Admin Dose 5 MG; Start 07/24/16 at 22:30 Diagnostic Test (Pha) (Accu-Chek) 1 ea 02 XX Last administered on 08/08/16 02: 00; Admin Dose 1 EA; Start 07/26/16 at 12:00 Metoprolol Tartrate (Lopressor) 100 mg BID GTB Last administered on 08/06/16 08 :20; Admin Dose 100 MG; Start 07/26/16 at 13:30 Clonidine HCl (Catapres-Tts 2 Patch) 1 patch Q7D TRANSDERM Last administered on 08/03/16 06:32; Admin Dose 1 PATCH; Start 07/27/16 at 07:00; Status Future Hold Pantoprazole (Protonix Tab) 40 mg DAILY@06 PO Last administered on 08/08/16 05: 34; Admin Dose 40 MG; Start 07/28/16 at 06:00 Hydralazine HCl (Apresoline) 20 mg Q4 PRN IV ELEVATED BLOOD PRESSURE Last administered on 08/04/16 16:35; Admin Dose 20 MG; Start 07/28/16 at 02:00 Doxazosin Mesylate (Cardura) 2 mg HS PO Last administered on 08/05/16 21:57; Admin Dose 2 MG; Start 07/28/16 at 21:00 Polyethylene Glycol (Miralax) 17 gm DAILY PRN GTB CONSTIPATION Last administered on 07/28/16 20:22; Admin Dose 17 GM; Start 07/28/16 at 19:30 Lorazepam (Ativan) 1 mg Q4H PRN IV anxiety Last administered on 07/30/16 20:48 ; Admin Dose 1 MG; Start 07/29/16 at 06:30 Ethambutol HCl (Myambutol) 900 mg TuThSa@20 PO Last administered on 08/07/16 23 :07; Admin Dose 900 MG; Start 07/31/16 at 20:00 Pyrazinamide (Pyrazinamide) 1,250 mg TuThSa@20 PO Last administered on 23:07; Admin Dose 1,250 MG; Start 07/31/16 at 20:00 Hydromorphone HCl (Dilaudid) 1 mg Q2H PRN IV pain Last administered on 10:24; Admin Dose 1 MG; Start 08/02/16 at 19:00 Hydralazine HCl 25 mg 25 mg Q8 PO Last administered on 08/06/16 05:44; Admin Dose 25 MG; Start 08/04/16 at 22:00 Norepinephrine/ Dextrose (Levophed/D5W) 500 ml @ 0 mls/hr TITRATE IV Last administered on 08/05/16t 02:49; Admin Dose 0 MLS/HR; Start 08/05/16 at 01:30 Benazepril HCl (Lotensin) 20 mg BID PO ; Start 08/07/16 at 21:00 Nifedipine (Procardia Xl) 30 mg BID PO ; Start 08/07/16 at 21:00 Zolpidem Tartrate (Ambien) 5 mg HS PRN PO INSOMNIA; Start 08/08/16 at 21:00 SHERITA SCOTT Aug 08, 2016 13:50
[2016-08-08] MEDS: HYDROCODONE/APAP (5/325) TAB PO PRN (14:40)
--- NOTE | 2016-08-08 15:55 | CONS ---
Date/Time of Note Date/Time of Note DATE: 08/08/16 TIME: 15:54 Consult Date/Type/Reason Admit Date/Time Jul 24, 2016 at 12:53 Initial Consult Date 07/25/16 Type of Consultation: pulmonary Ordering Provider: EVA COX MD Subjective Patient remains stable this morning still has chest tube in place Objective Vital Signs Date Time Temp Pulse Resp B/P Pulse Ox O2 Delivery O2 Flow Rate FiO2 08/08/16 15:16 2.0 08/08/16 12:25 85 08/08/16 12:15 94/61 08/08/16 11:45 98.0 19 95 08/08/16 08:00 Nasal Cannula Intake and Output 08/07/16 08/07/16 08/08/16 15:00 23:00 07:00 Intake Total 400 ml 480 ml Output Total 550 ml 450 ml Balance -150 ml 30 ml Exam GENERAL: Well-nourished well-developed gentleman comfortable at rest VITAL SIGNS: per chart NECK: Supple. No JVD or lymphadenopathy. CARDIAC EXAM: S1, S2. No added sounds or murmurs. CHEST: clear bilaterally, No added sounds, rales or wheezes ABDOMEN: Soft, nontender. No guarding or rebound. EXTREMITIES: No cyanosis, clubbing or edema. NEUROLOGIC: Generalized weakness. No focal deficits. Results/Medications Result Diagram: 08/08/16 0610 08/08/16 0610 Results 24 hrs Laboratory Tests Test 08/07/16 17:06 08/07/16 19:45 08/07/16 21:31 08/08/16 01:43 Bedside Glucose 282 H 195 193 193 Test 08/08/16 06:10 08/08/16 07:50 08/08/16 11:33 White Blood Count 12.5 H Red Blood Count 3.41 L Hemoglobin 10.7 L Hematocrit 32.8 L Mean Corpuscular Volume 96.2 Mean Corpuscular Hemoglobin 31.4 Mean Corpuscular Hemoglobin Concent 32.6 Red Cell Distribution Width 15.9 H Platelet Count 258 # Mean Platelet Volume 10.8 H Neutrophils % 82.4 H Lymphocytes % 4.6 L Monocytes % 9.8 Eosinophils % 2.4 Basophils % 0.2 Nucleated Red Blood Cells % 0.0 Neutrophils # 10.3 H Lymphocytes # 0.6 L Monocytes # 1.2 H Eosinophils # 0.3 Basophils # 0.0 Nucleated Red Blood Cells # 0.0 Sodium Level 129 L Potassium Level 5.5 H Chloride Level 96 L Carbon Dioxide Level 23 Anion Gap 16 Blood Urea Nitrogen 73 H Creatinine 6.39 H Glucose Level 224 H Calcium Level 7.6 L Bedside Glucose 222 H 207 Medications Current Medications Aspirin (Halfprin) 81 mg DAILY PO Last administered on 07/26/16 08:39; Admin Dose 81 MG; Start 07/25/16 at 09:00; Status Future Hold Atorvastatin Calcium (Lipitor) 10 mg QHS PO Last administered on 08/07/16 21:32 ; Admin Dose 10 MG; Start 07/24/16 at 21:00 Cholecalciferol (Vitamin D) 400 units DAILY PO Last administered on 08/08/16 08 :13; Admin Dose 400 UNITS; Start 07/25/16 at 09:00 Famotidine (Pepcid) 20 mg DAILY PO Last administered on 08/08/16 08:14; Admin Dose 20 MG; Start 07/25/16 at 09:00 Ferrous Sulfate (Ferrous Sulfate (Ec)) 325 mg BID PO Last administered on 08:13; Admin Dose 325 MG; Start 07/24/16 at 21:00 Acetaminophen/ Hydrocodone Bitart ([place] (5/325)) 1 tab Q4H PRN PO PAIN Last administered on 08/08/16 14:40; Admin Dose 1 TAB; Start 07/24/16 at 17:00 Isoniazid (Isoniazid) 300 mg DAILY PO Last administered on 08/08/16 08:14; Admin Dose 300 MG; Start 07/24/16 at 15:30 Pyridoxine HCl (Vitamin B6) 50 mg DAILY PO Last administered on 08/08/16 08:14 ; Admin Dose 50 MG; Start 07/25/16 at 09:00 Rifampin (Rifampin) 600 mg DAILY PO Last administered on 08/08/16 08:14; Admin Dose 600 MG; Start 07/25/16 at 09:00 Miscellaneous Information 1 ea NOTE XX ; Start 07/24/16 at 16:00 Glucose (Glutose) 15 gm Q15M PRN PO DECREASED GLUCOSE; Start 07/24/16 at 16:00 Glucose (Glutose) 22.5 gm Q15M PRN PO DECREASED GLUCOSE; Start 07/24/16 at 16: 00 Dextrose (D50w Syringe) 25 ml Q15M PRN IV DECREASED GLUCOSE; Start 07/24/16 at 16:00 Dextrose (D50w Syringe) 50 ml Q15M PRN IV DECREASED GLUCOSE; Start 07/24/16 at 16:00 Glucagon (Glucagen) 1 mg Q15M PRN IM DECREASED GLUCOSE; Start 07/24/16 at 16:00 Glucose (Glutose) 15 gm Q15M PRN BUCCAL DECREASED GLUCOSE; Start 07/24/16 at 16 :00 Ondansetron HCl (Zofran Inj) 4 mg Q4 PRN IV nausea Last administered on 14:37; Admin Dose 4 MG; Start 07/24/16 at 17:00 Metoclopramide HCl (Reglan) 5 mg Q4H PRN IV NAUSEA Last administered on 23:20; Admin Dose 5 MG; Start 07/24/16 at 22:30 Diagnostic Test (Pha) (Accu-Chek) 1 ea 02 XX Last administered on 08/08/16 02: 00; Admin Dose 1 EA; Start 07/26/16 at 12:00 Clonidine HCl (Catapres-Tts 2 Patch) 1 patch Q7D TRANSDERM Last administered on 08/03/16 06:32; Admin Dose 1 PATCH; Start 07/27/16 at 07:00; Status Future Hold Pantoprazole (Protonix Tab) 40 mg DAILY@06 PO Last administered on 08/08/16 05: 34; Admin Dose 40 MG; Start 07/28/16 at 06:00 Hydralazine HCl (Apresoline) 20 mg Q4 PRN IV ELEVATED BLOOD PRESSURE Last administered on 08/04/16 16:35; Admin Dose 20 MG; Start 07/28/16 at 02:00 Doxazosin Mesylate (Cardura) 2 mg HS PO Last administered on 08/05/16 21:57; Admin Dose 2 MG; Start 07/28/16 at 21:00; Status Future Hold Polyethylene Glycol (Miralax) 17 gm DAILY PRN GTB CONSTIPATION Last administered on 07/28/16 20:22; Admin Dose 17 GM; Start 07/28/16 at 19:30 Lorazepam (Ativan) 1 mg Q4H PRN IV anxiety Last administered on 07/30/16 20:48 ; Admin Dose 1 MG; Start 07/29/16 at 06:30 Ethambutol HCl (Myambutol) 900 mg TuThSa@20 PO Last administered on 08/07/16 23 :07; Admin Dose 900 MG; Start 07/31/16 at 20:00 Pyrazinamide (Pyrazinamide) 1,250 mg TuThSa@20 PO Last administered on 23:07; Admin Dose 1,250 MG; Start 07/31/16 at 20:00 Hydromorphone HCl (Dilaudid) 1 mg Q2H PRN IV pain Last administered on 10:24; Admin Dose 1 MG; Start 08/02/16 at 19:00 Hydralazine HCl (Apresoline) 25 mg Q8 PO Last administered on 08/06/16 05:44; Admin Dose 25 MG; Start 08/04/16 at 22:00; Status Future Hold Nifedipine (Procardia Xl) 30 mg BID PO ; Start 08/07/16 at 21:00 Zolpidem Tartrate (Ambien) 5 mg HS PRN PO INSOMNIA; Start 08/08/16 at 21:00 Benazepril HCl (Lotensin) 10 mg BID PO ; Start 08/09/16 at 09:00 Metoprolol Tartrate (Lopressor) 50 mg BID GTB ; Start 08/08/16 at 21:00 Assessment/Plan Chief Complaint/Hosp Course Assessment 1. Recurrent right pleural effusion consistent with empyema, cavitary lesions in the lung noted following thoracentesis. Consistent with possible active TB. 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 Recent VATS decortication now requiring repeat procedure 3. Coronary artery disease on antiplatelet agents 4. End-stage renal failure on hemodialysis Plan 1. Continue infectious disease recommendations in conjunction with Department of Health, continues antituberculosis therapy 2. Continue chest tube drainage post VATS procedure hopefully DC chest tubes soon repeat chest x-ray. 3. Continue hemodialysis 4. Encourage incentive spirometry Disposition Continue telemetry level of care Encourage out of bed Problems: [facility] Aug 08, 2016 15:55
[2016-08-08] MEDS ORDERED: SOD CHLORIDE 0.9% 500 ML IV ONE (17:00)
--- NOTE | 2016-08-08 17:11 | RADRPT ---
PROCEDURE: XR Chest. CLINICAL INDICATION: Shortness of breath. TECHNIQUE: Single frontal view. COMPARISON: 08/06/2016. FINDINGS: There are postoperative changes on the right with lateral skin willis and 2 chest tubes. There are sternal wires and mediastinal clips. There is a dual lead permanent pacemaker. Right basilar atel ectasis and moderate right pleural effusion are unchanged. The left lung is clear and there is no l eft pleural effusion. The heart size is normal. There is calcification in the aorta consistent with atherosclerosis. There is no pneumothorax. IMPRESSION: 1. No change from 08/06/2016. RPTAT: QQ .Robby Bennett MD, MD Date Time Electronically viewed and signed by .Robby Bennett MD, MD on 08/08/2016 17:10 .R/
[2016-08-08 17:18] LABS: ADD SCAN DIFF NO
[2016-08-08 17:20] LABS: ABNORMAL IP MESSAGE 1; BASOPHILS % 0.2 % (0.0-2.0); EOSINOPHILS # 0.1 10^3/ul (0.0-0.5); EOSINOPHILS % 0.9 % (0.0-7.0); HEMATOCRIT 34.7 % (42.0-52.0); HEMOGLOBIN 11.8 g/dl (14.0-18.0); LYMPHOCYTES # 0.4 10^3/ul (0.8-2.9); LYMPHOCYTES % 3.3 % (15.0-51.0); MEAN CORPUSCULAR HEMOGLOBIN 32.3 pg (29.0-33.0); MEAN CORPUSCULAR VOLUME 95.1 fl (82.0-101.0); MEAN PLATELET VOLUME 10.3 fl (7.4-10.4); MONOCYTE # 1.2 10^3/ul (0.3-0.9); MONOCYTES % 9.7 % (0.0-11.0); NEUTROPHIL # 10.7 10^3/ul (1.6-7.5); NEUTROPHILS % 85.1 % (39.0-77.0); PLATELET COUNT 295 10^3/UL (140-415); RED BLOOD COUNT 3.65 10^6/ul (4.70-6.10); RED CELL DISTRIBUTION WIDTH 15.9 % (11.5-14.5); WHITE BLOOD COUNT 12.6 10^3/ul (4.8-10.8)
[2016-08-08 17:41] LABS: CREATININE 7.23 mg/dl (0.61-1.24)
[2016-08-08 17:42] LABS: CALCIUM 7.9 mg/dl (8.4-10.2)
[2016-08-08] MEDS: ATORVASTATIN 10 MG TAB PO SCH (21:09)
[2016-08-08] MEDS: METOPROLOL 50 MG TAB GTB SCH (21:09)
[2016-08-08] MEDS: ZOLPIDEM 5 MG TAB PO PRN (22:32)
[2016-08-09] VITALS (49 sets, daily range): BP systolic 68–114; BP diastolic 47–72; PULSE 69–119; RESP 10–24
--- NOTE | 2016-08-09 00:27 | CONS ---
Date/Time of Note Date/Time of Note DATE: 08/09/16 TIME: 00:26 Assessment/Plan Assessment/Plan Chief Complaint/Hosp Course IMPRESSION: 1. Recurrent pleural effusions. s/p vats 2. Lung infiltrate./cavitary lesion 3. chronic lung disease. 4. Hypertension. 5. Diabetes mellitus. 6. End-stage renal disease. 7. anemia. 8. cad. 9. Leukocytosis.better 10. ashd 11. PLEURAL EFFUSIN 12. The patient on anti-tuberculosis treatment. 13. 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 PLAN HD 3x wk per pt per id and surgery chest xr seen ctube care hd am Problems: Consultation Date/Type/Reason Admit Date/Time Jul 24, 2016 at 12:53 Initial Consult Date 07/25/16 Type of Consultation: renal Referring Provider: EVA COX MD 24 HR Interval Summary Constitutional: other (clotted avf) Exam/Review of Systems Vital Signs Vitals Vital Signs Date Time Temp Pulse Resp B/P Pulse Ox O2 Delivery O2 Flow Rate FiO2 08/08/16 20:28 71 08/08/16 20:06 98.2 20 113/70 100 08/08/16 20:00 Nasal Cannula 2.0 Intake and Output 08/08/16 08/08/16 08/09/16 15:00 23:00 07:00 Intake Total 950 ml Output Total 480 ml 270 ml Balance -480 ml 680 ml Exam Respiratory: clear to auscultation Cardiovascular: regular rate and rhythm Gastrointestinal: soft Extremities: normal pulses Results Result Diagram: 08/08/16 1713 08/08/16 1650 Results 24 hrs Laboratory Tests Test 08/08/16 01:43 08/08/16 06:10 08/08/16 07:50 08/08/16 11:33 Bedside Glucose 193 222 H 207 White Blood Count 12.5 H Red Blood Count 3.41 L Hemoglobin 10.7 L Hematocrit 32.8 L Mean Corpuscular Volume 96.2 Mean Corpuscular Hemoglobin 31.4 Mean Corpuscular Hemoglobin Concent 32.6 Red Cell Distribution Width 15.9 H Platelet Count 258 # Mean Platelet Volume 10.8 H Neutrophils % 82.4 H Lymphocytes % 4.6 L Monocytes % 9.8 Eosinophils % 2.4 Basophils % 0.2 Nucleated Red Blood Cells % 0.0 Neutrophils # 10.3 H Lymphocytes # 0.6 L Monocytes # 1.2 H Eosinophils # 0.3 Basophils # 0.0 Nucleated Red Blood Cells # 0.0 Sodium Level 129 L Potassium Level 5.5 H Chloride Level 96 L Carbon Dioxide Level 23 Anion Gap 16 Blood Urea Nitrogen 73 H Creatinine 6.39 H Glucose Level 224 H Calcium Level 7.6 L Test 08/08/16 16:50 08/08/16 17:13 08/08/16 17:20 08/08/16 21:08 Sodium Level 130 L Potassium Level 5.0 Chloride Level 94 L Carbon Dioxide Level 20 L Anion Gap 21 H Blood Urea Nitrogen 89 H Creatinine 7.23 H Glucose Level 264 H Calcium Level 7.9 L White Blood Count 12.6 H Red Blood Count 3.65 L Hemoglobin 11.8 L Hematocrit 34.7 L Mean Corpuscular Volume 95.1 Mean Corpuscular Hemoglobin 32.3 Mean Corpuscular Hemoglobin Concent 34.0 Red Cell Distribution Width 15.9 H Platelet Count 295 Mean Platelet Volume 10.3 Neutrophils % 85.1 H Lymphocytes % 3.3 L Monocytes % 9.7 Eosinophils % 0.9 Basophils % 0.2 Nucleated Red Blood Cells % 0.0 Neutrophils # 10.7 H Lymphocytes # 0.4 L Monocytes # 1.2 H Eosinophils # 0.1 Basophils # 0.0 Nucleated Red Blood Cells # 0.0 Bedside Glucose 244 H 197 Medications Medications Current Medications Aspirin (Halfprin) 81 mg DAILY PO Last administered on 07/26/16 08:39; Admin Dose 81 MG; Start 07/25/16 at 09:00; Status Future Hold Atorvastatin Calcium (Lipitor) 10 mg QHS PO Last administered on 08/08/16 21:09 ; Admin Dose 10 MG; Start 07/24/16 at 21:00 Cholecalciferol (Vitamin D) 400 units DAILY PO Last administered on 08/08/16 08 :13; Admin Dose 400 UNITS; Start 07/25/16 at 09:00 Famotidine (Pepcid) 20 mg DAILY PO Last administered on 08/08/16 08:14; Admin Dose 20 MG; Start 07/25/16 at 09:00 Ferrous Sulfate (Ferrous Sulfate (Ec)) 325 mg BID PO Last administered on 21:09; Admin Dose 325 MG; Start 07/24/16 at 21:00 Acetaminophen/ Hydrocodone Bitart ([place] (5/325)) 1 tab Q4H PRN PO PAIN Last administered on 08/08/16 14:40; Admin Dose 1 TAB; Start 07/24/16 at 17:00 Isoniazid (Isoniazid) 300 mg DAILY PO Last administered on 08/08/16 08:14; Admin Dose 300 MG; Start 07/24/16 at 15:30 Pyridoxine HCl (Vitamin B6) 50 mg DAILY PO Last administered on 08/08/16 08:14 ; Admin Dose 50 MG; Start 07/25/16 at 09:00 Rifampin (Rifampin) 600 mg DAILY PO Last administered on 08/08/16 08:14; Admin Dose 600 MG; Start 07/25/16 at 09:00 Miscellaneous Information 1 ea NOTE XX ; Start 07/24/16 at 16:00 Glucose (Glutose) 15 gm Q15M PRN PO DECREASED GLUCOSE; Start 07/24/16 at 16:00 Glucose (Glutose) 22.5 gm Q15M PRN PO DECREASED GLUCOSE; Start 07/24/16 at 16: 00 Dextrose (D50w Syringe) 25 ml Q15M PRN IV DECREASED GLUCOSE; Start 07/24/16 at 16:00 Dextrose (D50w Syringe) 50 ml Q15M PRN IV DECREASED GLUCOSE; Start 07/24/16 at 16:00 Glucagon (Glucagen) 1 mg Q15M PRN IM DECREASED GLUCOSE; Start 07/24/16 at 16:00 Glucose (Glutose) 15 gm Q15M PRN BUCCAL DECREASED GLUCOSE; Start 07/24/16 at 16 :00 Ondansetron HCl (Zofran Inj) 4 mg Q4 PRN IV nausea Last administered on 22:32; Admin Dose 4 MG; Start 07/24/16 at 17:00 Metoclopramide HCl (Reglan) 5 mg Q4H PRN IV NAUSEA Last administered on 23:20; Admin Dose 5 MG; Start 07/24/16 at 22:30 Diagnostic Test (Pha) (Accu-Chek) 1 ea 02 XX Last administered on 08/08/16 02: 00; Admin Dose 1 EA; Start 07/26/16 at 12:00 Clonidine HCl (Catapres-Tts 2 Patch) 1 patch Q7D TRANSDERM Last administered on 08/03/16 06:32; Admin Dose 1 PATCH; Start 07/27/16 at 07:00; Status Future Hold Pantoprazole (Protonix Tab) 40 mg DAILY@06 PO Last administered on 08/08/16 05: 34; Admin Dose 40 MG; Start 07/28/16 at 06:00 Hydralazine HCl (Apresoline) 20 mg Q4 PRN IV ELEVATED BLOOD PRESSURE Last administered on 08/04/16 16:35; Admin Dose 20 MG; Start 07/28/16 at 02:00 Doxazosin Mesylate (Cardura) 2 mg HS PO Last administered on 08/05/16 21:57; Admin Dose 2 MG; Start 07/28/16 at 21:00; Status Future Hold Polyethylene Glycol (Miralax) 17 gm DAILY PRN GTB CONSTIPATION Last administered on 07/28/16 20:22; Admin Dose 17 GM; Start 07/28/16 at 19:30 Lorazepam (Ativan) 1 mg Q4H PRN IV anxiety Last administered on 07/30/16 20:48 ; Admin Dose 1 MG; Start 07/29/16 at 06:30 Ethambutol HCl (Myambutol) 900 mg TuThSa@20 PO Last administered on 08/07/16 23 :07; Admin Dose 900 MG; Start 07/31/16 at 20:00 Pyrazinamide (Pyrazinamide) 1,250 mg TuThSa@20 PO Last administered on 23:07; Admin Dose 1,250 MG; Start 07/31/16 at 20:00 Hydromorphone HCl (Dilaudid) 1 mg Q2H PRN IV pain Last administered on 21:20; Admin Dose 1 MG; Start 08/02/16 at 19:00 Hydralazine HCl (Apresoline) 25 mg Q8 PO Last administered on 08/06/16 05:44; Admin Dose 25 MG; Start 08/04/16 at 22:00; Status Future Hold Nifedipine (Procardia Xl) 30 mg BID PO ; Start 08/07/16 at 21:00 Zolpidem Tartrate (Ambien) 5 mg HS PRN PO INSOMNIA Last administered on 22:32; Admin Dose 5 MG; Start 08/08/16 at 21:00 Benazepril HCl (Lotensin) 10 mg BID PO ; Start 08/09/16 at 09:00 Metoprolol Tartrate (Lopressor) 50 mg BID GTB Last administered on 08/08/16t 21: 09; Admin Dose 50 MG; Start 08/08/16 at 21:00 PAOLA MOODY MD Aug 09, 2016 00:26
[2016-08-09] MEDS: ACCUCHECK 2 AM XX SCH (02:06)
[2016-08-09] MEDS: HYDROCODONE/APAP (5/325) TAB PO PRN ×3 (02:07→19:03)
[2016-08-09] MEDS: PANTOPRAZOLE (EC) 40 MG TAB PO SCH (05:26)
[2016-08-09 07:52] LABS: ABNORMAL IP MESSAGE 1; ADD SCAN DIFF NO; BASOPHILS % 0.1 % (0.0-2.0); EOSINOPHILS # 0.2 10^3/ul (0.0-0.5); EOSINOPHILS % 1.4 % (0.0-7.0); HEMATOCRIT 33.6 % (42.0-52.0); LYMPHOCYTES # 0.4 10^3/ul (0.8-2.9); LYMPHOCYTES % 3.3 % (15.0-51.0); MEAN CORPUSCULAR HEMOGLOBIN 31.5 pg (29.0-33.0); MEAN CORPUSCULAR HGB CONC 32.7 g/dl (32.0-37.0); MEAN CORPUSCULAR VOLUME 96.3 fl (82.0-101.0); MEAN PLATELET VOLUME 10.6 fl (7.4-10.4); MONOCYTE # 1.4 10^3/ul (0.3-0.9); MONOCYTES % 10.6 % (0.0-11.0); NEUTROPHIL # 11.3 10^3/ul (1.6-7.5); NEUTROPHILS % 83.8 % (39.0-77.0); PLATELET COUNT 277 10^3/UL (140-415); RED BLOOD COUNT 3.49 10^6/ul (4.70-6.10); RED CELL DISTRIBUTION WIDTH 16.2 % (11.5-14.5); WHITE BLOOD COUNT 13.5 10^3/ul (4.8-10.8)
[2016-08-09 07:55] LABS: POTASSIUM 4.9 mmol/L (3.5-5.1)
[2016-08-09 07:58] LABS: CALCIUM 7.2 mg/dl (8.4-10.2); CREATININE 8.04 mg/dl (0.61-1.24)
[2016-08-09] MEDS: NIFEdipine (XL) 30 MG TAB PO SCH (09:00)
[2016-08-09] MEDS ORDERED: BENAZEPRIL 10 MG TAB PO SCH (09:00)
[2016-08-09] MEDS: FAMOTIDINE 20 MG TAB PO SCH (09:00)
[2016-08-09] MEDS: METOPROLOL 50 MG TAB GTB SCH (09:00)
[2016-08-09] MEDS: Insulin NOVOLOG SS MILD Algorithm (SS with meals and bedtime) SC SCH ×4 (09:27→21:02)
[2016-08-09] MEDS: INSULIN ASPART [NOVOLOG] 3 ML PEN SC SCH ×2 (09:27→13:24)
[2016-08-09] MEDS ORDERED: SOD CHLORIDE 0.9% 250 ML IV ONE (09:30)
[2016-08-09] MEDS: SEVELAMER CARBONATE 0.8 GM PKT PO SCH ×3 (10:41→17:52)
[2016-08-09] MEDS: CALCIUM ACETATE 667 MG CAP PO SCH ×3 (10:41→17:52)
[2016-08-09] MEDS: FERROUS SULFATE (EC) 325 MG TAB PO SCH ×2 (10:41→21:45)
[2016-08-09] MEDS: RIFAMPIN 300 MG CAP PO SCH (10:42)
[2016-08-09] MEDS: ISONIAZID 300 MG TAB PO SCH (10:43)
[2016-08-09] MEDS: CHOLECALCIFEROL 400 UNITS TAB PO SCH (10:43)
[2016-08-09] MEDS: PYRIDOXINE 50 MG TAB PO SCH (10:43)
[2016-08-09] MEDS ORDERED: SOD CHLORIDE 0.9% 500 ML IV ONE ×2 (11:00→14:30)
[2016-08-09] MEDS ORDERED: ALBUMIN HUMAN 25% 100 ML IV ONE (11:00)
--- NOTE | 2016-08-09 12:04 | RADRPT ---
PROCEDURE: XR Chest. CLINICAL INDICATION: Shortness of breath. TECHNIQUE: Single frontal view. COMPARISON: 08/08/2016. FINDINGS: The tube right chest tubes remain in satisfactory position. There is consolidation throughout the r ight mid and lower lung zones, unchanged. The left lung is clear. The heart size is normal. There is a permanent pacemaker. Calcification is present in the aorta co nsistent with atherosclerosis. There are sternal wires. There is no pleural effusion. There is no pneumothorax. IMPRESSION: 1. No change from 08/08/2016. RPTAT: QQ .Robby Bennett MD, MD Date Time Electronically viewed and signed by .Robby Bennett MD, MD on 08/09/2016 12:03 .R/
--- NOTE | 2016-08-09 14:05 | CONS ---
Date/Time of Note Date/Time of Note DATE: 08/09/16 TIME: 14:02 Assessment/Plan Assessment/Plan Chief Complaint/Hosp Course IMPRESSION: 1. Abnormal electrocardiogram, assess for acute coronary syndrome with no current chest pain and recently negative stress test.-negative troponin x 3 2. History of a percutaneous transluminal coronary angioplasty and stent placement to left main and left anterior descending in 2014. 3. History of coronary artery bypass graft surgery. 4. Video assisted thoracoscopic surgery pleurodesis with leakage from the chest tube site.- now s/p repeat VATS/pleurodesis with CT with significant outpaut over the last 8 hours 5. Shortness of breath. 6. End-stage renal disease on hemodialysis. 7. Tuberculosis, on therapy. 8. Hypotension 9. Diabetes mellitus. 10. Dyslipidemia. 11. Anemia-worsening s/p transfusion 12.Empyema/cavitary lesions by CT Recc: -Tele -Hold anti-hypertensives -IVF bolus and for ongoing low BP will start levophed pressor support -Plavix/asa held in the setting of anemia/resume when possible -HD for volume removal as tolerated only -continue TB treatment -Follow CT output closely and surgery will re-eval today Problems: Consultation Date/Type/Reason Admit Date/Time Jul 24, 2016 at 12:53 Initial Consult Date 07/24/16 Type of Consultation: Cardiology Reason for Consultation Hypotension Referring Provider: EVA COX MD Exam/Review of Systems Vital Signs Vitals Vital Signs Date Time Temp Pulse Resp B/P Pulse Ox O2 Delivery O2 Flow Rate FiO2 08/09/16 13:15 70 19 90/58 100 08/09/16 13:00 Nasal Cannula 2.0 08/09/16 12:30 99.1 Intake and Output 08/08/16 08/08/16 08/09/16 15:00 23:00 07:00 Intake Total 950 ml 240 ml Output Total 480 ml 270 ml 650 ml Balance -480 ml 680 ml -410 ml Exam Review of Systems: CONSTITUTIONAL: No fevers, chills. PULMONARY: No sob CARDIOVASCULAR: No chest pain/palpitations GASTROINTESTINAL: No nausea/vomiting. GENITOURINARY: No hematuria/dysuria. MUSCULOSKELETAL: No myagias/arthalgias. PSYCHIATRIC: The patient denies depression. NEUROLOGIC: No weakness Constitutional: other (lethargic) ENMT: mucosa pink and moist Neck: supple Respiratory: diminished breath sounds (at bases/B) Cardiovascular: regular rate and rhythm Gastrointestinal: non-tender, soft Musculoskeletal: muscle tone (normal) Extremities: edema (none) Neurological: confused, lethargic Results Result Diagram: 08/09/16 0500 08/09/16 0606 Results 24 hrs Laboratory Tests Test 08/08/16 16:50 08/08/16 17:13 08/08/16 17:20 08/08/16 21:08 Sodium Level 130 L Potassium Level 5.0 Chloride Level 94 L Carbon Dioxide Level 20 L Anion Gap 21 H Blood Urea Nitrogen 89 H Creatinine 7.23 H Glucose Level 264 H Calcium Level 7.9 L White Blood Count 12.6 H Red Blood Count 3.65 L Hemoglobin 11.8 L Hematocrit 34.7 L Mean Corpuscular Volume 95.1 Mean Corpuscular Hemoglobin 32.3 Mean Corpuscular Hemoglobin Concent 34.0 Red Cell Distribution Width 15.9 H Platelet Count 295 Mean Platelet Volume 10.3 Neutrophils % 85.1 H Lymphocytes % 3.3 L Monocytes % 9.7 Eosinophils % 0.9 Basophils % 0.2 Nucleated Red Blood Cells % 0.0 Neutrophils # 10.7 H Lymphocytes # 0.4 L Monocytes # 1.2 H Eosinophils # 0.1 Basophils # 0.0 Nucleated Red Blood Cells # 0.0 Bedside Glucose 244 H 197 Test 08/09/16 02:05 08/09/16 05:00 08/09/16 06:06 08/09/16 08:34 Bedside Glucose 209 207 White Blood Count 13.5 H Red Blood Count 3.49 L Hemoglobin 11.0 L Hematocrit 33.6 L Mean Corpuscular Volume 96.3 Mean Corpuscular Hemoglobin 31.5 Mean Corpuscular Hemoglobin Concent 32.7 Red Cell Distribution Width 16.2 H Platelet Count 277 Mean Platelet Volume 10.6 H Neutrophils % 83.8 H Lymphocytes % 3.3 L Monocytes % 10.6 Eosinophils % 1.4 Basophils % 0.1 Nucleated Red Blood Cells % 0.0 Neutrophils # 11.3 H Lymphocytes # 0.4 L Monocytes # 1.4 H Eosinophils # 0.2 Basophils # 0.0 Nucleated Red Blood Cells # 0.0 Sodium Level 129 L Potassium Level 4.9 Chloride Level 93 L Carbon Dioxide Level 22 Anion Gap 19 H Blood Urea Nitrogen 97 H Creatinine 8.04 H Glucose Level 200 Calcium Level 7.2 L Test 08/09/16 09:22 08/09/16 12:51 Bedside Glucose 223 H 131 Medications Medications Current Medications Aspirin (Halfprin) 81 mg DAILY PO Last administered on 07/26/16 08:39; Admin Dose 81 MG; Start 07/25/16 at 09:00; Status Future Hold Atorvastatin Calcium (Lipitor) 10 mg QHS PO Last administered on 08/08/16 21:09 ; Admin Dose 10 MG; Start 07/24/16 at 21:00 Cholecalciferol (Vitamin D) 400 units DAILY PO Last administered on 08/09/16 10 :43; Admin Dose 400 UNITS; Start 07/25/16 at 09:00 Famotidine (Pepcid) 20 mg DAILY PO Last administered on 08/08/16 08:14; Admin Dose 20 MG; Start 07/25/16 at 09:00 Ferrous Sulfate (Ferrous Sulfate (Ec)) 325 mg BID PO Last administered on 21:09; Admin Dose 325 MG; Start 07/24/16 at 21:00 Acetaminophen/ Hydrocodone Bitart ([place] (5/325)) 1 tab Q4H PRN PO PAIN Last administered on 08/09/16 02:07; Admin Dose 1 TAB; Start 07/24/16 at 17:00 Isoniazid (Isoniazid) 300 mg DAILY PO Last administered on 08/09/16 10:43; Admin Dose 300 MG; Start 07/24/16 at 15:30 Pyridoxine HCl (Vitamin B6) 50 mg DAILY PO Last administered on 08/09/16 10:43 ; Admin Dose 50 MG; Start 07/25/16 at 09:00 Rifampin (Rifampin) 600 mg DAILY PO Last administered on 08/09/16 10:42; Admin Dose 600 MG; Start 07/25/16 at 09:00 Miscellaneous Information 1 ea NOTE XX ; Start 07/24/16 at 16:00 Glucose (Glutose) 15 gm Q15M PRN PO DECREASED GLUCOSE; Start 07/24/16 at 16:00 Glucose (Glutose) 22.5 gm Q15M PRN PO DECREASED GLUCOSE; Start 07/24/16 at 16: 00 Dextrose (D50w Syringe) 25 ml Q15M PRN IV DECREASED GLUCOSE; Start 07/24/16 at 16:00 Dextrose (D50w Syringe) 50 ml Q15M PRN IV DECREASED GLUCOSE; Start 07/24/16 at 16:00 Glucagon (Glucagen) 1 mg Q15M PRN IM DECREASED GLUCOSE; Start 07/24/16 at 16:00 Glucose (Glutose) 15 gm Q15M PRN BUCCAL DECREASED GLUCOSE; Start 07/24/16 at 16 :00 Ondansetron HCl (Zofran Inj) 4 mg Q4 PRN IV nausea Last administered on 22:32; Admin Dose 4 MG; Start 07/24/16 at 17:00 Metoclopramide HCl (Reglan) 5 mg Q4H PRN IV NAUSEA Last administered on 23:20; Admin Dose 5 MG; Start 07/24/16 at 22:30 Diagnostic Test (Pha) (Accu-Chek) 1 ea 02 XX Last administered on 08/09/16 02: 06; Admin Dose 1 EA; Start 07/26/16 at 12:00 Clonidine HCl (Catapres-Tts 2 Patch) 1 patch Q7D TRANSDERM Last administered on 08/03/16 06:32; Admin Dose 1 PATCH; Start 07/27/16 at 07:00; Status Future Hold Pantoprazole (Protonix Tab) 40 mg DAILY@06 PO Last administered on 08/09/16 05: 26; Admin Dose 40 MG; Start 07/28/16 at 06:00 Hydralazine HCl (Apresoline) 20 mg Q4 PRN IV ELEVATED BLOOD PRESSURE Last administered on 08/04/16 16:35; Admin Dose 20 MG; Start 07/28/16 at 02:00 Doxazosin Mesylate (Cardura) 2 mg HS PO Last administered on 08/05/16 21:57; Admin Dose 2 MG; Start 07/28/16 at 21:00; Status Future Hold Polyethylene Glycol (Miralax) 17 gm DAILY PRN GTB CONSTIPATION Last administered on 07/28/16 20:22; Admin Dose 17 GM; Start 07/28/16 at 19:30 Lorazepam (Ativan) 1 mg Q4H PRN IV anxiety Last administered on 07/30/16 20:48 ; Admin Dose 1 MG; Start 07/29/16 at 06:30 Ethambutol HCl (Myambutol) 900 mg TuThSa@20 PO Last administered on 08/07/16 23 :07; Admin Dose 900 MG; Start 07/31/16 at 20:00 Pyrazinamide (Pyrazinamide) 1,250 mg TuThSa@20 PO Last administered on 23:07; Admin Dose 1,250 MG; Start 07/31/16 at 20:00 Hydromorphone HCl (Dilaudid) 1 mg Q2H PRN IV pain Last administered on 21:20; Admin Dose 1 MG; Start 08/02/16 at 19:00 Hydralazine HCl (Apresoline) 25 mg Q8 PO Last administered on 08/06/16 05:44; Admin Dose 25 MG; Start 08/04/16 at 22:00; Status Future Hold Nifedipine (Procardia Xl) 30 mg BID PO ; Start 08/07/16 at 21:00 Zolpidem Tartrate (Ambien) 5 mg HS PRN PO INSOMNIA Last administered on 22:32; Admin Dose 5 MG; Start 08/08/16 at 21:00 Benazepril HCl (Lotensin) 10 mg BID PO ; Start 08/09/16 at 09:00 Metoprolol Tartrate (Lopressor) 50 mg BID GTB Last administered on 08/08/16 21: 09; Admin Dose 50 MG; Start 08/08/16 at 21:00 SHERITA SCOTT Aug 09, 2016 14:05
--- NOTE | 2016-08-09 15:47 | CONS ---
Date/Time of Note Date/Time of Note DATE: 08/09/16 TIME: 15:39 Consult Date/Type/Reason Admit Date/Time Jul 24, 2016 at 12:53 Initial Consult Date 07/25/16 Type of Consultation: Pulm/CCM Ordering Provider: EVA COX MD Subjective Transferred to the ICU for hypotension. CT putting out milky fluid. Objective Vital Signs Date Time Temp Pulse Resp B/P Pulse Ox O2 Delivery O2 Flow Rate FiO2 08/09/16 15:15 70 16 105/60 99 08/09/16 15:00 Nasal Cannula 2.0 08/09/16 12:30 99.1 Intake and Output 08/08/16 08/08/16 08/09/16 15:00 23:00 07:00 Intake Total 950 ml 240 ml Output Total 480 ml 270 ml 650 ml Balance -480 ml 680 ml -410 ml Exam HEENT: Neck supple; no JVD; no LAD CVS: RRR, S1 and S2 CHEST: Decreased BS on R ABD: Soft, NT, + BS EXT: No c/c/e Results/Medications Result Diagram: 08/09/16 0500 08/09/16 0606 Results 24 hrs Laboratory Tests Test 08/08/16 16:50 08/08/16 17:13 08/08/16 17:20 08/08/16 21:08 Sodium Level 130 L Potassium Level 5.0 Chloride Level 94 L Carbon Dioxide Level 20 L Anion Gap 21 H Blood Urea Nitrogen 89 H Creatinine 7.23 H Glucose Level 264 H Calcium Level 7.9 L White Blood Count 12.6 H Red Blood Count 3.65 L Hemoglobin 11.8 L Hematocrit 34.7 L Mean Corpuscular Volume 95.1 Mean Corpuscular Hemoglobin 32.3 Mean Corpuscular Hemoglobin Concent 34.0 Red Cell Distribution Width 15.9 H Platelet Count 295 Mean Platelet Volume 10.3 Neutrophils % 85.1 H Lymphocytes % 3.3 L Monocytes % 9.7 Eosinophils % 0.9 Basophils % 0.2 Nucleated Red Blood Cells % 0.0 Neutrophils # 10.7 H Lymphocytes # 0.4 L Monocytes # 1.2 H Eosinophils # 0.1 Basophils # 0.0 Nucleated Red Blood Cells # 0.0 Bedside Glucose 244 H 197 Test 08/09/16 02:05 08/09/16 05:00 08/09/16 06:06 08/09/16 08:34 Bedside Glucose 209 207 White Blood Count 13.5 H Red Blood Count 3.49 L Hemoglobin 11.0 L Hematocrit 33.6 L Mean Corpuscular Volume 96.3 Mean Corpuscular Hemoglobin 31.5 Mean Corpuscular Hemoglobin Concent 32.7 Red Cell Distribution Width 16.2 H Platelet Count 277 Mean Platelet Volume 10.6 H Neutrophils % 83.8 H Lymphocytes % 3.3 L Monocytes % 10.6 Eosinophils % 1.4 Basophils % 0.1 Nucleated Red Blood Cells % 0.0 Neutrophils # 11.3 H Lymphocytes # 0.4 L Monocytes # 1.4 H Eosinophils # 0.2 Basophils # 0.0 Nucleated Red Blood Cells # 0.0 Sodium Level 129 L Potassium Level 4.9 Chloride Level 93 L Carbon Dioxide Level 22 Anion Gap 19 H Blood Urea Nitrogen 97 H Creatinine 8.04 H Glucose Level 200 Calcium Level 7.2 L Test 08/09/16 09:22 08/09/16 12:51 Bedside Glucose 223 H 131 Medications Current Medications Aspirin (Halfprin) 81 mg DAILY PO Last administered on 07/26/16 08:39; Admin Dose 81 MG; Start 07/25/16 at 09:00; Status Future Hold Atorvastatin Calcium (Lipitor) 10 mg QHS PO Last administered on 08/08/16 21:09 ; Admin Dose 10 MG; Start 07/24/16 at 21:00 Cholecalciferol (Vitamin D) 400 units DAILY PO Last administered on 08/09/16 10 :43; Admin Dose 400 UNITS; Start 07/25/16 at 09:00 Famotidine (Pepcid) 20 mg DAILY PO Last administered on 08/08/16 08:14; Admin Dose 20 MG; Start 07/25/16 at 09:00 Ferrous Sulfate (Ferrous Sulfate (Ec)) 325 mg BID PO Last administered on 21:09; Admin Dose 325 MG; Start 07/24/16 at 21:00 Acetaminophen/ Hydrocodone Bitart ([place] (5/325)) 1 tab Q4H PRN PO PAIN Last administered on 08/09/16 02:07; Admin Dose 1 TAB; Start 07/24/16 at 17:00 Isoniazid (Isoniazid) 300 mg DAILY PO Last administered on 08/09/16 10:43; Admin Dose 300 MG; Start 07/24/16 at 15:30 Pyridoxine HCl (Vitamin B6) 50 mg DAILY PO Last administered on 08/09/16 10:43 ; Admin Dose 50 MG; Start 07/25/16 at 09:00 Rifampin (Rifampin) 600 mg DAILY PO Last administered on 08/09/16 10:42; Admin Dose 600 MG; Start 07/25/16 at 09:00 Miscellaneous Information 1 ea NOTE XX ; Start 07/24/16 at 16:00 Glucose (Glutose) 15 gm Q15M PRN PO DECREASED GLUCOSE; Start 07/24/16 at 16:00 Glucose (Glutose) 22.5 gm Q15M PRN PO DECREASED GLUCOSE; Start 07/24/16 at 16: 00 Dextrose (D50w Syringe) 25 ml Q15M PRN IV DECREASED GLUCOSE; Start 07/24/16 at 16:00 Dextrose (D50w Syringe) 50 ml Q15M PRN IV DECREASED GLUCOSE; Start 07/24/16 at 16:00 Glucagon (Glucagen) 1 mg Q15M PRN IM DECREASED GLUCOSE; Start 07/24/16 at 16:00 Glucose (Glutose) 15 gm Q15M PRN BUCCAL DECREASED GLUCOSE; Start 07/24/16 at 16 :00 Ondansetron HCl (Zofran Inj) 4 mg Q4 PRN IV nausea Last administered on 22:32; Admin Dose 4 MG; Start 07/24/16 at 17:00 Metoclopramide HCl (Reglan) 5 mg Q4H PRN IV NAUSEA Last administered on 23:20; Admin Dose 5 MG; Start 07/24/16 at 22:30 Diagnostic Test (Pha) (Accu-Chek) 1 ea 02 XX Last administered on 08/09/16 02: 06; Admin Dose 1 EA; Start 07/26/16 at 12:00 Clonidine HCl (Catapres-Tts 2 Patch) 1 patch Q7D TRANSDERM Last administered on 08/03/16 06:32; Admin Dose 1 PATCH; Start 07/27/16 at 07:00; Status Future Hold Pantoprazole (Protonix Tab) 40 mg DAILY@06 PO Last administered on 08/09/16 05: 26; Admin Dose 40 MG; Start 07/28/16 at 06:00 Hydralazine HCl (Apresoline) 20 mg Q4 PRN IV ELEVATED BLOOD PRESSURE Last administered on 08/04/16 16:35; Admin Dose 20 MG; Start 07/28/16 at 02:00 Doxazosin Mesylate (Cardura) 2 mg HS PO Last administered on 08/05/16 21:57; Admin Dose 2 MG; Start 07/28/16 at 21:00; Status Future Hold Polyethylene Glycol (Miralax) 17 gm DAILY PRN GTB CONSTIPATION Last administered on 07/28/16 20:22; Admin Dose 17 GM; Start 07/28/16 at 19:30 Lorazepam (Ativan) 1 mg Q4H PRN IV anxiety Last administered on 07/30/16 20:48 ; Admin Dose 1 MG; Start 07/29/16 at 06:30 Ethambutol HCl (Myambutol) 900 mg TuThSa@20 PO Last administered on 08/07/16 23 :07; Admin Dose 900 MG; Start 07/31/16 at 20:00 Pyrazinamide (Pyrazinamide) 1,250 mg TuThSa@20 PO Last administered on 23:07; Admin Dose 1,250 MG; Start 07/31/16 at 20:00 Hydromorphone HCl (Dilaudid) 1 mg Q2H PRN IV pain Last administered on 21:20; Admin Dose 1 MG; Start 08/02/16 at 19:00 Hydralazine HCl (Apresoline) 25 mg Q8 PO Last administered on 08/06/16 05:44; Admin Dose 25 MG; Start 08/04/16 at 22:00; Status Future Hold Nifedipine (Procardia Xl) 30 mg BID PO ; Start 08/07/16 at 21:00; Status Future Hold Zolpidem Tartrate (Ambien) 5 mg HS PRN PO INSOMNIA Last administered on 22:32; Admin Dose 5 MG; Start 08/08/16 at 21:00 Benazepril HCl (Lotensin) 10 mg BID PO ; Start 08/09/16 at 09:00; Status Future Hold Metoprolol Tartrate 25 mg 25 mg BID GTB ; Start 08/09/16 at 21:00 Norepinephrine/ Dextrose (Levophed/D5W) 500 ml @ 1.87 mls/hr TITRATE IV ; Start 08/09/16 at 15:30 Assessment/Plan Additional Assessment/Plan IMP: 1. 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 Sepsis: concern for catheter related infection 3. Milky Drainage from right CT: r/o chylous vs. pseudochylous effusion 4. End-stage renal failure on hemodialysis RECS: 1. Send pleural fluid for triglycerides and cholesterol and cytology for chylomicrons 2. Replace femoral HD line 3. Send BC x [address] output 5. IVF's; serial lactates 35 min cc time SONYA ODEN MD Aug 09, 2016 15:47
--- NOTE | 2016-08-09 16:24 | CONS ---
Date/Time of Note Date/Time of Note DATE: 08/09/16 TIME: 16:23 Assessment/Plan Assessment/Plan Chief Complaint/Hosp Course - possible tubercular empyema: R sided complex loculated air containing empyemas , visceral and parietal pleural calcifications. - a 35 mm lesion with possible cavitation in the anterior inferior RUL, possible recurrent tuberculosis - high risk for TB: history (originally from [facility], spends one month of each year in [facility], last in 09/2015), medical history (DM, ESRD), laboratory findings (positive quantiferon TB gold, granulomatous inflammation with focal necrosis on Bx of pleura) - AFB smear was negative x3, also M. tuberculosis DNA probe to the 1st sputum sample was undetectable in early 07/2016 - s/p first R VATS, total pulmonary decortication, R pleurodesis on 06/30/2016. Biopsy was negative for fungal stain and AFB stain (micro lab and pathology department), as well as malignancy. It showed granulomatous inflammation with focal necrosis and extensive hyalinization. - s/p second R VATS, decortication thoracotomy on 08/04/2016. Per Dr. Martinez, the tissue did not appear empyema. It was largely blood clots and tissue debris. Fluid was sent for cultures, but not tissue. Path showed blood and polarizable foreign material, no malignancy - sputum collected on 08/02/2016 was negative for mycobacterium tuberculosis DNA probe - h/o recurrent pleural effusion requiring thoracentesis approximately once a year, last performed in 04/2016 prior to this admission - positive quantiferon TB gold status of unknown duration. Per Pt, his past PPD was done in 2013, and was negative. - Our infection process control specialist Lindsey contacted the TB control unit at [facility]: we learned on 07/11/2016 that Pt has h/o mycobacterial tuberculosis infection in 1997 and was treated between 1997 and 1998. - DM - Hgb A1c 5.2% 06/17/16 - ESRD on HD - CAD s/p CABG in 2010 and cardiac stent in 2013 - HIV screen negative in 07/2016 tested at [facility] - sepsis vs. sirs recommendations - han cx, lactic acid, procalc - empiric abx vanco/jae/micafungin - pending: mycobacterium tuberculosis DNA probe to fluid in [facility] bulb was sent on 08/06/2016 - continue renally dosed RIPE plus vitamin B6 supplement (07/12/2016-) - check LFTs' weekly Problems: Consultation Date/Type/Reason Admit Date/Time Jul 24, 2016 at 12:53 Initial Consult Date 07/24/16 Type of Consultation: id Referring Provider: EVA COX MD 24 HR Interval Summary Free Text/Dictation transferred to icu Exam/Review of Systems Vital Signs Vitals Vital Signs Date Time Temp Pulse Resp B/P Pulse Ox O2 Delivery O2 Flow Rate FiO2 08/09/16 16:00 70 08/09/16 15:15 16 105/60 99 08/09/16 15:00 Nasal Cannula 2.0 08/09/16 12:30 99.1 Intake and Output 08/08/16 08/08/16 08/09/16 15:00 23:00 07:00 Intake Total 950 ml 240 ml Output Total 480 ml 270 ml 650 ml Balance -480 ml 680 ml -410 ml Results Result Diagram: 08/09/16 0500 08/09/16 0606 Results 24 hrs Laboratory Tests Test 08/08/16 16:50 08/08/16 17:13 08/08/16 17:20 08/08/16 21:08 Sodium Level 130 L Potassium Level 5.0 Chloride Level 94 L Carbon Dioxide Level 20 L Anion Gap 21 H Blood Urea Nitrogen 89 H Creatinine 7.23 H Glucose Level 264 H Calcium Level 7.9 L White Blood Count 12.6 H Red Blood Count 3.65 L Hemoglobin 11.8 L Hematocrit 34.7 L Mean Corpuscular Volume 95.1 Mean Corpuscular Hemoglobin 32.3 Mean Corpuscular Hemoglobin Concent 34.0 Red Cell Distribution Width 15.9 H Platelet Count 295 Mean Platelet Volume 10.3 Neutrophils % 85.1 H Lymphocytes % 3.3 L Monocytes % 9.7 Eosinophils % 0.9 Basophils % 0.2 Nucleated Red Blood Cells % 0.0 Neutrophils # 10.7 H Lymphocytes # 0.4 L Monocytes # 1.2 H Eosinophils # 0.1 Basophils # 0.0 Nucleated Red Blood Cells # 0.0 Bedside Glucose 244 H 197 Test 08/09/16 02:05 08/09/16 05:00 08/09/16 06:06 08/09/16 08:34 Bedside Glucose 209 207 White Blood Count 13.5 H Red Blood Count 3.49 L Hemoglobin 11.0 L Hematocrit 33.6 L Mean Corpuscular Volume 96.3 Mean Corpuscular Hemoglobin 31.5 Mean Corpuscular Hemoglobin Concent 32.7 Red Cell Distribution Width 16.2 H Platelet Count 277 Mean Platelet Volume 10.6 H Neutrophils % 83.8 H Lymphocytes % 3.3 L Monocytes % 10.6 Eosinophils % 1.4 Basophils % 0.1 Nucleated Red Blood Cells % 0.0 Neutrophils # 11.3 H Lymphocytes # 0.4 L Monocytes # 1.4 H Eosinophils # 0.2 Basophils # 0.0 Nucleated Red Blood Cells # 0.0 Sodium Level 129 L Potassium Level 4.9 Chloride Level 93 L Carbon Dioxide Level 22 Anion Gap 19 H Blood Urea Nitrogen 97 H Creatinine 8.04 H Glucose Level 200 Calcium Level 7.2 L Test 08/09/16 09:22 08/09/16 12:51 Bedside Glucose 223 H 131 Medications Medications Current Medications Aspirin (Halfprin) 81 mg DAILY PO Last administered on 07/26/16 08:39; Admin Dose 81 MG; Start 07/25/16 at 09:00; Status Future Hold Atorvastatin Calcium (Lipitor) 10 mg QHS PO Last administered on 08/08/16 21:09 ; Admin Dose 10 MG; Start 07/24/16 at 21:00 Cholecalciferol (Vitamin D) 400 units DAILY PO Last administered on 08/09/16 10 :43; Admin Dose 400 UNITS; Start 07/25/16 at 09:00 Famotidine (Pepcid) 20 mg DAILY PO Last administered on 08/08/16 08:14; Admin Dose 20 MG; Start 07/25/16 at 09:00 Ferrous Sulfate (Ferrous Sulfate (Ec)) 325 mg BID PO Last administered on 21:09; Admin Dose 325 MG; Start 07/24/16 at 21:00 Acetaminophen/ Hydrocodone Bitart ([place] (5/325)) 1 tab Q4H PRN PO PAIN Last administered on 08/09/16 02:07; Admin Dose 1 TAB; Start 07/24/16 at 17:00 Isoniazid (Isoniazid) 300 mg DAILY PO Last administered on 08/09/16 10:43; Admin Dose 300 MG; Start 07/24/16 at 15:30 Pyridoxine HCl (Vitamin B6) 50 mg DAILY PO Last administered on 08/09/16 10:43 ; Admin Dose 50 MG; Start 07/25/16 at 09:00 Rifampin (Rifampin) 600 mg DAILY PO Last administered on 08/09/16 10:42; Admin Dose 600 MG; Start 07/25/16 at 09:00 Miscellaneous Information 1 ea NOTE XX ; Start 07/24/16 at 16:00 Glucose (Glutose) 15 gm Q15M PRN PO DECREASED GLUCOSE; Start 07/24/16 at 16:00 Glucose (Glutose) 22.5 gm Q15M PRN PO DECREASED GLUCOSE; Start 07/24/16 at 16: 00 Dextrose (D50w Syringe) 25 ml Q15M PRN IV DECREASED GLUCOSE; Start 07/24/16 at 16:00 Dextrose (D50w Syringe) 50 ml Q15M PRN IV DECREASED GLUCOSE; Start 07/24/16 at 16:00 Glucagon (Glucagen) 1 mg Q15M PRN IM DECREASED GLUCOSE; Start 07/24/16 at 16:00 Glucose (Glutose) 15 gm Q15M PRN BUCCAL DECREASED GLUCOSE; Start 07/24/16 at 16 :00 Ondansetron HCl (Zofran Inj) 4 mg Q4 PRN IV nausea Last administered on 22:32; Admin Dose 4 MG; Start 07/24/16 at 17:00 Metoclopramide HCl (Reglan) 5 mg Q4H PRN IV NAUSEA Last administered on 23:20; Admin Dose 5 MG; Start 07/24/16 at 22:30 Diagnostic Test (Pha) (Accu-Chek) 1 ea 02 XX Last administered on 08/09/16 02: 06; Admin Dose 1 EA; Start 07/26/16 at 12:00 Clonidine HCl (Catapres-Tts 2 Patch) 1 patch Q7D TRANSDERM Last administered on 08/03/16 06:32; Admin Dose 1 PATCH; Start 07/27/16 at 07:00; Status Future Hold Pantoprazole (Protonix Tab) 40 mg DAILY@06 PO Last administered on 08/09/16 05: 26; Admin Dose 40 MG; Start 07/28/16 at 06:00 Hydralazine HCl (Apresoline) 20 mg Q4 PRN IV ELEVATED BLOOD PRESSURE Last administered on 08/04/16 16:35; Admin Dose 20 MG; Start 07/28/16 at 02:00 Doxazosin Mesylate (Cardura) 2 mg HS PO Last administered on 08/05/16 21:57; Admin Dose 2 MG; Start 07/28/16 at 21:00; Status Future Hold Polyethylene Glycol (Miralax) 17 gm DAILY PRN GTB CONSTIPATION Last administered on 07/28/16 20:22; Admin Dose 17 GM; Start 07/28/16 at 19:30 Lorazepam (Ativan) 1 mg Q4H PRN IV anxiety Last administered on 07/30/16 20:48 ; Admin Dose 1 MG; Start 07/29/16 at 06:30 Ethambutol HCl (Myambutol) 900 mg TuThSa@20 PO Last administered on 08/07/16 23 :07; Admin Dose 900 MG; Start 07/31/16 at 20:00 Pyrazinamide (Pyrazinamide) 1,250 mg TuThSa@20 PO Last administered on 23:07; Admin Dose 1,250 MG; Start 07/31/16 at 20:00 Hydromorphone HCl (Dilaudid) 1 mg Q2H PRN IV pain Last administered on 21:20; Admin Dose 1 MG; Start 08/02/16 at 19:00 Hydralazine HCl (Apresoline) 25 mg Q8 PO Last administered on 08/06/16 05:44; Admin Dose 25 MG; Start 08/04/16 at 22:00; Status Future Hold Nifedipine (Procardia Xl) 30 mg BID PO ; Start 08/07/16 at 21:00; Status Future Hold Zolpidem Tartrate (Ambien) 5 mg HS PRN PO INSOMNIA Last administered on 22:32; Admin Dose 5 MG; Start 08/08/16 at 21:00 Benazepril HCl (Lotensin) 10 mg BID PO ; Start 08/09/16 at 09:00; Status Future Hold Metoprolol Tartrate 25 mg 25 mg BID GTB ; Start 08/09/16 at 21:00 Norepinephrine/ Dextrose (Levophed/D5W) 500 ml @ 1.87 mls/hr TITRATE IV ; Start 08/09/16 at 15:30 BRENDA ISRAEL MD Aug 09, 2016 16:24
[2016-08-09] MEDS ORDERED: VANCOMYCIN IV PER PHARMACY XX SCH (16:30)
[2016-08-09] MEDS ORDERED: CASPOFUNGIN 70 MG in SOD CHLORIDE 0.9% 250 ML IVPB ONE (17:00)
--- NOTE | 2016-08-09 17:31 | PN ---
Date/Time of Note Date/Time of Note DATE: 08/09/16 TIME: 17:23 Assessment/Plan VTE Prophylaxis VTE Prophylaxis Intervention: other Lines/Catheters IV C[facility]ter Type (from [facility]): Peripheral IV Urinary Cath still in place: Yes Assessment/Plan Assessment/Plan - Recurrent right pleural effusion consistent with empyema, cavitary lesions, status post right thoracotomy and pulmonary decortication on 08/04. -Hemoptysis, resolved. Dr. Dale is following in pulmonology consultation. Dr. Caitlin balderas is following an infection disease consultation. -Right former chest tube site bleeding, resolved. Dr. Martinez is following in thoracic surgery consultation. -Anemia of acute blood loss, patient had bleeding from the right femoral catheter as well as chest tube site on admission, status post blood transfusion , continue to monitor hemoglobin and hematocrit. Dr. Martinez is following in hematology consultation. 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 - End-stage renal disease, continue hemodialysis. Dr. Saunders is following in nephrology consultation. - Diabetes mellitus type 2, continue Lantus, pre-meal NovoLog and NovoLog per mild algorithm sliding scale. - Hypertension. Dr. De Santiago is following and cardiology consultation. Continue benazepril metoprolol hydralazine Procardia - Coronary artery disease, status post coronary artery bypass graft, s/p percutaneous transluminal coronary angioplasty and stent placement to left main and left anterior descending in 2014. - Permanent pacemaker. No acute issues. - Dyslipidemia. Continue Lipitor. 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 Further recommendations based on clinical course. Plan of care discussed with Dr. Price. Further treatment depends upon patient's clinical course. Total critical care time spent 30 mins. Plan of care dw Dr Price/staff Subjective 24 Hr Interval Summary Constitutional: requiring IVF, requiring O2 Eyes: no complaints ENT: no complaints Respiratory: other (right chest -pain at surgical site), shortness of breath Gastrointestinal: no complaints Genitourinary: no complaints Musculoskeletal: no complaints Skin: no complaints Neurologic: no complaints Endocrine: no complaints Lymphatic: no complaints Psychological: no complaints Immunologic: no complaints Exam/Review of Systems Vital Signs Vitals Vital Signs Date Time Temp Pulse Resp B/P Pulse Ox O2 Delivery O2 Flow Rate FiO2 4/8/17 16:00 70 08/09/16 15:15 16 105/60 99 08/09/16 15:00 Nasal Cannula 2.0 08/09/16 12:30 99.1 Intake and Output 08/08/16 08/08/16 08/09/16 15:00 23:00 07:00 Intake Total 950 ml 240 ml Output Total 480 ml 270 ml 650 ml Balance -480 ml 680 ml -410 ml Exam Constitutional: alert, frail, oriented Psych: nl mood/affect Head: atraumatic Eyes: EOMI, PERRL, nl sclera ENMT: nl external ears & nose Neck: non-tender Respiratory: diminished breath sounds (at bases-more on right than left lung) Cardiovascular: nl pulses Gastrointestinal: non-tender, soft Extremities: normal pulses Neurological: nl mental status, nl speech Skin: other (right chest- sp chest tube placement) Lymph: nontender Results Result Diagram: 08/09/16 0500 08/09/16 0606 Results 24 hrs Laboratory Tests Test 08/08/16 21:08 08/09/16 02:05 08/09/16 05:00 08/09/16 06:06 Bedside Glucose 197 209 White Blood Count 13.5 H Red Blood Count 3.49 L Hemoglobin 11.0 L Hematocrit 33.6 L Mean Corpuscular Volume 96.3 Mean Corpuscular Hemoglobin 31.5 Mean Corpuscular Hemoglobin Concent 32.7 Red Cell Distribution Width 16.2 H Platelet Count 277 Mean Platelet Volume 10.6 H Neutrophils % 83.8 H Lymphocytes % 3.3 L Monocytes % 10.6 Eosinophils % 1.4 Basophils % 0.1 Nucleated Red Blood Cells % 0.0 Neutrophils # 11.3 H Lymphocytes # 0.4 L Monocytes # 1.4 H Eosinophils # 0.2 Basophils # 0.0 Nucleated Red Blood Cells # 0.0 Sodium Level 129 L Potassium Level 4.9 Chloride Level 93 L Carbon Dioxide Level 22 Anion Gap 19 H Blood Urea Nitrogen 97 H Creatinine 8.04 H Glucose Level 200 Calcium Level 7.2 L Test 08/09/16 08:34 08/09/16 09:22 08/09/16 12:51 Bedside Glucose 207 223 H 131 Medications Medications Current Medications Aspirin (Halfprin) 81 mg DAILY PO Last administered on 07/26/16t 08:39; Admin Dose 81 MG; Start 07/25/16 at 09:00; Status Future Hold Atorvastatin Calcium (Lipitor) 10 mg QHS PO Last administered on 08/08/16 21:09 ; Admin Dose 10 MG; Start 07/24/16 at 21:00 Cholecalciferol (Vitamin D) 400 units DAILY PO Last administered on 08/09/16 10 :43; Admin Dose 400 UNITS; Start 07/25/16 at 09:00 Famotidine (Pepcid) 20 mg DAILY PO Last administered on 08/08/16 08:14; Admin Dose 20 MG; Start 07/25/16 at 09:00 Ferrous Sulfate (Ferrous Sulfate (Ec)) 325 mg BID PO Last administered on 21:09; Admin Dose 325 MG; Start 07/24/16 at 21:00 Acetaminophen/ Hydrocodone Bitart ([place] (5/325)) 1 tab Q4H PRN PO PAIN Last administered on 08/09/16 02:07; Admin Dose 1 TAB; Start 07/24/16 at 17:00 Isoniazid (Isoniazid) 300 mg DAILY PO Last administered on 08/09/16 10:43; Admin Dose 300 MG; Start 07/24/16 at 15:30 Pyridoxine HCl (Vitamin B6) 50 mg DAILY PO Last administered on 08/09/16 10:43 ; Admin Dose 50 MG; Start 07/25/16 at 09:00 Rifampin (Rifampin) 600 mg DAILY PO Last administered on 08/09/16 10:42; Admin Dose 600 MG; Start 07/25/16 at 09:00 Miscellaneous Information 1 ea NOTE XX ; Start 07/24/16 at 16:00 Glucose (Glutose) 15 gm Q15M PRN PO DECREASED GLUCOSE; Start 07/24/16 at 16:00 Glucose (Glutose) 22.5 gm Q15M PRN PO DECREASED GLUCOSE; Start 07/24/16 at 16: 00 Dextrose (D50w Syringe) 25 ml Q15M PRN IV DECREASED GLUCOSE; Start 07/24/16 at 16:00 Dextrose (D50w Syringe) 50 ml Q15M PRN IV DECREASED GLUCOSE; Start 07/24/16 at 16:00 Glucagon (Glucagen) 1 mg Q15M PRN IM DECREASED GLUCOSE; Start 07/24/16 at 16:00 Glucose (Glutose) 15 gm Q15M PRN BUCCAL DECREASED GLUCOSE; Start 07/24/16 at 16 :00 Ondansetron HCl (Zofran Inj) 4 mg Q4 PRN IV nausea Last administered on 22:32; Admin Dose 4 MG; Start 07/24/16 at 17:00 Metoclopramide HCl (Reglan) 5 mg Q4H PRN IV NAUSEA Last administered on 23:20; Admin Dose 5 MG; Start 07/24/16 at 22:30 Diagnostic Test (Pha) (Accu-Chek) 1 ea 02 XX Last administered on 08/09/16 02: 06; Admin Dose 1 EA; Start 07/26/16 at 12:00 Clonidine HCl (Catapres-Tts 2 Patch) 1 patch Q7D TRANSDERM Last administered on 08/03/16 06:32; Admin Dose 1 PATCH; Start 07/27/16 at 07:00; Status Future Hold Pantoprazole (Protonix Tab) 40 mg DAILY@06 PO Last administered on 08/09/16 05: 26; Admin Dose 40 MG; Start 07/28/16 at 06:00 Hydralazine HCl (Apresoline) 20 mg Q4 PRN IV ELEVATED BLOOD PRESSURE Last administered on 08/04/16 16:35; Admin Dose 20 MG; Start 07/28/16 at 02:00 Doxazosin Mesylate (Cardura) 2 mg HS PO Last administered on 08/05/16 21:57; Admin Dose 2 MG; Start 07/28/16 at 21:00; Status Future Hold Polyethylene Glycol (Miralax) 17 gm DAILY PRN GTB CONSTIPATION Last administered on 07/28/16 20:22; Admin Dose 17 GM; Start 07/28/16 at 19:30 Lorazepam (Ativan) 1 mg Q4H PRN IV anxiety Last administered on 07/30/16 20:48 ; Admin Dose 1 MG; Start 07/29/16 at 06:30 Ethambutol HCl (Myambutol) 900 mg TuThSa@20 PO Last administered on 08/07/16 23 :07; Admin Dose 900 MG; Start 07/31/16 at 20:00 Pyrazinamide (Pyrazinamide) 1,250 mg TuThSa@20 PO Last administered on 23:07; Admin Dose 1,250 MG; Start 07/31/16 at 20:00 Hydromorphone HCl (Dilaudid) 1 mg Q2H PRN IV pain Last administered on 21:20; Admin Dose 1 MG; Start 08/02/16 at 19:00 Hydralazine HCl (Apresoline) 25 mg Q8 PO Last administered on 08/06/16 05:44; Admin Dose 25 MG; Start 08/04/16 at 22:00; Status Future Hold Nifedipine (Procardia Xl) 30 mg BID PO ; Start 08/07/16 at 21:00; Status Future Hold Zolpidem Tartrate (Ambien) 5 mg HS PRN PO INSOMNIA Last administered on 22:32; Admin Dose 5 MG; Start 08/08/16 at 21:00 Benazepril HCl (Lotensin) 10 mg BID PO ; Start 08/09/16 at 09:00; Status Future Hold Metoprolol Tartrate 25 mg 25 mg BID GTB ; Start 08/09/16 at 21:00 Norepinephrine 16 mg/Dextrose 500 ml @ 1.87 mls/hr TITRATE IV ; Start 08/09/16 at 15:30 Meropenem 100 ml @ 200 mls/hr Q12 IVPB ; Start 08/09/16 at 21:00 Caspofungin 70 mg/ Sodium Chloride 250 ml @ 250 mls/hr ONCE ONCE IVPB ; Start 08/09/16 at 17:00; Stop 08/09/16 at 17:59 Caspofungin 50 mg/ Sodium Chloride 250 ml @ 250 mls/hr Q24H IVPB ; Start at 17:00 Vancomycin HCl/ Sodium Chloride (Vancocin/NS) 250 ml @ 83.333 mls/ hr ONCE IVPB ; Start 08/09/16 at 18:00; Stop 08/09/16 at 21:00 PATRICIA RUEDA Aug 09, 2016 17:31
[2016-08-09] MEDS: SOD CHLORIDE 0.9% 1,000 ML IV SCH (17:45)
[2016-08-09] MEDS ORDERED: VANCOMYCIN 1.25 GM in SOD CHLORIDE 0.9% 250 ML IVPB SCH (18:00)
[2016-08-09] MEDS: MEROPENEM 500 MG/100 ML (PMX) 100 ML IVPB SCH (20:56)
[2016-08-09] MEDS: METOPROLOL 25 MG TAB GTB SCH (21:00)
--- NOTE | 2016-08-09 21:10 | PN ---
Date/Time of Note Date/Time of Note DATE: 08/09/16 TIME: 21:08 Assessment/Plan VTE Prophylaxis VTE Prophylaxis Intervention: other Lines/Catheters IV Catheter Type (from Nrs): Central line still needed: No Urinary Cath still in place: No Assessment/Plan Chief Complaint/Hosp Course IMPRESSION: Right chest tube site bleeding, which has now subsided completely. Hgb stable Would monitor the hemoglobin levels and stop the antiplatelet. SP VATS Decortication CT output [address]xn [address] HD cath tomorrow Problems: Subjective 24 Hr Interval Summary Gastrointestinal: no complaints Genitourinary: no complaints Musculoskeletal: no complaints Skin: no complaints Exam/Review of Systems Vital Signs Vitals Vital Signs Date Time Temp Pulse Resp B/P Pulse Ox O2 Delivery O2 Flow Rate FiO2 08/09/16 20:30 73 17 89/54 99 08/09/16 20:00 Nasal Cannula 2.0 08/09/16 19:00 98.1 Intake and Output 08/08/16 08/08/16 08/09/16 15:00 23:00 07:00 Intake Total 950 ml 240 ml Output Total 480 ml 270 ml 650 ml Balance -480 ml 680 ml -410 ml Exam ENMT: nl external ears & nose, nl lips & teeth, nl nasal mucosa & septum Neck: non-tender, supple Respiratory: clear to auscultation, normal air movement Results Result Diagram: 08/09/16 0500 08/09/16 0606 Results 24 hrs Laboratory Tests Test 08/09/16 02:05 08/09/16 05:00 08/09/16 06:06 08/09/16 08:34 Bedside Glucose 209 207 White Blood Count 13.5 H Red Blood Count 3.49 L Hemoglobin 11.0 L Hematocrit 33.6 L Mean Corpuscular Volume 96.3 Mean Corpuscular Hemoglobin 31.5 Mean Corpuscular Hemoglobin Concent 32.7 Red Cell Distribution Width 16.2 H Platelet Count 277 Mean Platelet Volume 10.6 H Neutrophils % 83.8 H Lymphocytes % 3.3 L Monocytes % 10.6 Eosinophils % 1.4 Basophils % 0.1 Nucleated Red Blood Cells % 0.0 Neutrophils # 11.3 H Lymphocytes # 0.4 L Monocytes # 1.4 H Eosinophils # 0.2 Basophils # 0.0 Nucleated Red Blood Cells # 0.0 Sodium Level 129 L Potassium Level 4.9 Chloride Level 93 L Carbon Dioxide Level 22 Anion Gap 19 H Blood Urea Nitrogen 97 H Creatinine 8.04 H Glucose Level 200 Calcium Level 7.2 L Test 08/09/16 09:22 08/09/16 12:51 08/09/16 17:51 08/09/16 20:55 Bedside Glucose 223 H 131 177 199 Medications Medications Current Medications Aspirin (Halfprin) 81 mg DAILY PO Last administered on 07/26/16 08:39; Admin Dose 81 MG; Start 07/25/16 at 09:00; Status Future Hold Atorvastatin Calcium (Lipitor) 10 mg QHS PO Last administered on 08/08/16 21:09 ; Admin Dose 10 MG; Start 07/24/16 at 21:00 Cholecalciferol (Vitamin D) 400 units DAILY PO Last administered on 08/09/16 10 :43; Admin Dose 400 UNITS; Start 07/25/16 at 09:00 Famotidine (Pepcid) 20 mg DAILY PO Last administered on 08/08/16 08:14; Admin Dose 20 MG; Start 07/25/16 at 09:00 Ferrous Sulfate (Ferrous Sulfate (Ec)) 325 mg BID PO Last administered on 21:09; Admin Dose 325 MG; Start 07/24/16 at 21:00 Acetaminophen/ Hydrocodone Bitart ([place] (5/325)) 1 tab Q4H PRN PO PAIN Last administered on 08/09/16 19:03; Admin Dose 1 TAB; Start 07/24/16 at 17:00 Isoniazid (Isoniazid) 300 mg DAILY PO Last administered on 08/09/16 10:43; Admin Dose 300 MG; Start 07/24/16 at 15:30 Pyridoxine HCl (Vitamin B6) 50 mg DAILY PO Last administered on 08/09/16 10:43 ; Admin Dose 50 MG; Start 07/25/16 at 09:00 Rifampin (Rifampin) 600 mg DAILY PO Last administered on 08/09/16 10:42; Admin Dose 600 MG; Start 07/25/16 at 09:00 Miscellaneous Information 1 ea NOTE XX ; Start 07/24/16 at 16:00 Glucose (Glutose) 15 gm Q15M PRN PO DECREASED GLUCOSE; Start 07/24/16 at 16:00 Glucose (Glutose) 22.5 gm Q15M PRN PO DECREASED GLUCOSE; Start 07/24/16 at 16: 00 Dextrose (D50w Syringe) 25 ml Q15M PRN IV DECREASED GLUCOSE; Start 07/24/16 at 16:00 Dextrose (D50w Syringe) 50 ml Q15M PRN IV DECREASED GLUCOSE; Start 07/24/16 at 16:00 Glucagon (Glucagen) 1 mg Q15M PRN IM DECREASED GLUCOSE; Start 07/24/16 at 16:00 Glucose (Glutose) 15 gm Q15M PRN BUCCAL DECREASED GLUCOSE; Start 07/24/16 at 16 :00 Ondansetron HCl (Zofran Inj) 4 mg Q4 PRN IV nausea Last administered on 22:32; Admin Dose 4 MG; Start 07/24/16 at 17:00 Metoclopramide HCl (Reglan) 5 mg Q4H PRN IV NAUSEA Last administered on 23:20; Admin Dose 5 MG; Start 07/24/16 at 22:30 Diagnostic Test (Pha) (Accu-Chek) 1 ea 02 XX Last administered on 08/09/16 02: 06; Admin Dose 1 EA; Start 07/26/16 at 12:00 Clonidine HCl (Catapres-Tts 2 Patch) 1 patch Q7D TRANSDERM Last administered on 08/03/16 06:32; Admin Dose 1 PATCH; Start 07/27/16 at 07:00; Status Future Hold Pantoprazole (Protonix Tab) 40 mg DAILY@06 PO Last administered on 08/09/16 05: 26; Admin Dose 40 MG; Start 07/28/16 at 06:00 Hydralazine HCl (Apresoline) 20 mg Q4 PRN IV ELEVATED BLOOD PRESSURE Last administered on 08/04/16 16:35; Admin Dose 20 MG; Start 07/28/16 at 02:00 Doxazosin Mesylate (Cardura) 2 mg HS PO Last administered on 08/05/16 21:57; Admin Dose 2 MG; Start 07/28/16 at 21:00; Status Future Hold Polyethylene Glycol (Miralax) 17 gm DAILY PRN GTB CONSTIPATION Last administered on 07/28/16 20:22; Admin Dose 17 GM; Start 07/28/16 at 19:30 Lorazepam (Ativan) 1 mg Q4H PRN IV anxiety Last administered on 07/30/16 20:48 ; Admin Dose 1 MG; Start 07/29/16 at 06:30 Ethambutol HCl (Myambutol) 900 mg TuThSa@20 PO Last administered on 08/07/16 23 :07; Admin Dose 900 MG; Start 07/31/16 at 20:00 Pyrazinamide (Pyrazinamide) 1,250 mg TuThSa@20 PO Last administered on 23:07; Admin Dose 1,250 MG; Start 07/31/16 at 20:00 Hydromorphone HCl (Dilaudid) 1 mg Q2H PRN IV pain Last administered on 21:20; Admin Dose 1 MG; Start 08/02/16 at 19:00 Hydralazine HCl (Apresoline) 25 mg Q8 PO Last administered on 08/06/16 05:44; Admin Dose 25 MG; Start 08/04/16 at 22:00; Status Future Hold Nifedipine (Procardia Xl) 30 mg BID PO ; Start 08/07/16 at 21:00; Status Future Hold Zolpidem Tartrate (Ambien) 5 mg HS PRN PO INSOMNIA Last administered on 22:32; Admin Dose 5 MG; Start 08/08/16 at 21:00 Benazepril HCl (Lotensin) 10 mg BID PO ; Start 08/09/16 at 09:00; Status Future Hold Metoprolol Tartrate 25 mg 25 mg BID GTB ; Start 08/09/16 at 21:00 Norepinephrine 16 mg/Dextrose 500 ml @ 1.87 mls/hr TITRATE IV ; Start 08/09/16 at 15:30 Meropenem 100 ml @ 200 mls/hr Q12 IVPB Last administered on 08/09/16 20:56; Admin Dose 200 MLS/HR; Start 08/09/16 at 21:00 Caspofungin 50 mg/ Sodium Chloride 250 ml @ 250 mls/hr Q24H IVPB ; Start at 17:00 Sodium Chloride (NS) 1,000 ml @ 50 mls/hr Q20H IV Last administered on 17:45; Admin Dose 50 MLS/HR; Start 08/09/16 at 17:30 LILIA FELIZ MD Aug 09, 2016 21:10
[2016-08-09] MEDS: ATORVASTATIN 10 MG TAB PO SCH (21:45)
[2016-08-09] MEDS: ETHAMBUTOL 400 MG TAB PO SCH (21:46)
[2016-08-09] MEDS: PYRAZINAMIDE 500 MG TAB PO SCH (21:47)
--- NOTE | 2016-08-09 21:53 | CONS ---
Date/Time of Note Date/Time of Note DATE: 08/09/16 TIME: 21:50 Assessment/Plan Assessment/Plan Chief Complaint/Hosp Course IMPRESSION: 1. Recurrent pleural effusions. s/p vats 2. Lung infiltrate./cavitary lesion 3. chronic lung disease. 4. Hypertension. 5. Diabetes mellitus. 6. End-stage renal disease. 7. anemia. 8. cad. 9. hypotension 10. ashd 11. PLEURAL EFFUSIN 12. The patient on anti-tuberculosis treatment. 13. 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 PLAN per id and surgery chest xr seen ctube care hd when bp stable iv fluid Problems: Consultation Date/Type/Reason Admit Date/Time Jul 24, 2016 at 12:53 Initial Consult Date 07/25/16 Type of Consultation: renal Referring Provider: EVA COX MD 24 HR Interval Summary Subjective hx not possible: other (tranfered to icu for low bp) Exam/Review of Systems Vital Signs Vitals Vital Signs Date Time Temp Pulse Resp B/P Pulse Ox O2 Delivery O2 Flow Rate FiO2 08/09/16 20:30 73 17 89/54 99 08/09/16 20:00 Nasal Cannula 2.0 08/09/16 19:00 98.1 Intake and Output 08/08/16 08/08/16 08/09/16 15:00 23:00 07:00 Intake Total 950 ml 240 ml Output Total 480 ml 270 ml 650 ml Balance -480 ml 680 ml -410 ml Exam Neck: supple Respiratory: diminished breath sounds Cardiovascular: regular rate and rhythm Gastrointestinal: soft Extremities: normal pulses 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 Results Result Diagram: 08/09/16 0500 08/09/16 0606 Results 24 hrs Laboratory Tests Test 08/09/16 02:05 08/09/16 05:00 08/09/16 06:06 08/09/16 08:34 Bedside Glucose 209 207 White Blood Count 13.5 H Red Blood Count 3.49 L Hemoglobin 11.0 L Hematocrit 33.6 L Mean Corpuscular Volume 96.3 Mean Corpuscular Hemoglobin 31.5 Mean Corpuscular Hemoglobin Concent 32.7 Red Cell Distribution Width 16.2 H Platelet Count 277 Mean Platelet Volume 10.6 H Neutrophils % 83.8 H Lymphocytes % 3.3 L Monocytes % 10.6 Eosinophils % 1.4 Basophils % 0.1 Nucleated Red Blood Cells % 0.0 Neutrophils # 11.3 H Lymphocytes # 0.4 L Monocytes # 1.4 H Eosinophils # 0.2 Basophils # 0.0 Nucleated Red Blood Cells # 0.0 Sodium Level 129 L Potassium Level 4.9 Chloride Level 93 L Carbon Dioxide Level 22 Anion Gap 19 H Blood Urea Nitrogen 97 H Creatinine 8.04 H Glucose Level 200 Calcium Level 7.2 L Test 08/09/16 09:22 08/09/16 12:51 08/09/16 17:51 08/09/16 20:55 Bedside Glucose 223 H 131 177 199 Medications Medications Current Medications Aspirin (Halfprin) 81 mg DAILY PO Last administered on 07/26/16 08:39; Admin Dose 81 MG; Start 07/25/16 at 09:00; Status Future Hold Atorvastatin Calcium (Lipitor) 10 mg QHS PO Last administered on 08/09/16 21:45 ; Admin Dose 10 MG; Start 07/24/16 at 21:00 Cholecalciferol (Vitamin D) 400 units DAILY PO Last administered on 08/09/16 10 :43; Admin Dose 400 UNITS; Start 07/25/16 at 09:00 Famotidine (Pepcid) 20 mg DAILY PO Last administered on 08/08/16 08:14; Admin Dose 20 MG; Start 07/25/16 at 09:00 Ferrous Sulfate (Ferrous Sulfate (Ec)) 325 mg BID PO Last administered on 21:45; Admin Dose 325 MG; Start 07/24/16 at 21:00 Acetaminophen/ Hydrocodone Bitart ([place] (5/325)) 1 tab Q4H PRN PO PAIN Last administered on 08/09/16 19:03; Admin Dose 1 TAB; Start 07/24/16 at 17:00 Isoniazid (Isoniazid) 300 mg DAILY PO Last administered on 08/09/16 10:43; Admin Dose 300 MG; Start 07/24/16 at 15:30 Pyridoxine HCl (Vitamin B6) 50 mg DAILY PO Last administered on 08/09/16 10:43 ; Admin Dose 50 MG; Start 07/25/16 at 09:00 Rifampin (Rifampin) 600 mg DAILY PO Last administered on 08/09/16 10:42; Admin Dose 600 MG; Start 07/25/16 at 09:00 Miscellaneous Information 1 ea NOTE XX ; Start 07/24/16 at 16:00 Glucose (Glutose) 15 gm Q15M PRN PO DECREASED GLUCOSE; Start 07/24/16 at 16:00 Glucose (Glutose) 22.5 gm Q15M PRN PO DECREASED GLUCOSE; Start 07/24/16 at 16: 00 Dextrose (D50w Syringe) 25 ml Q15M PRN IV DECREASED GLUCOSE; Start 07/24/16 at 16:00 Dextrose (D50w Syringe) 50 ml Q15M PRN IV DECREASED GLUCOSE; Start 07/24/16 at 16:00 Glucagon (Glucagen) 1 mg Q15M PRN IM DECREASED GLUCOSE; Start 07/24/16 at 16:00 Glucose (Glutose) 15 gm Q15M PRN BUCCAL DECREASED GLUCOSE; Start 07/24/16 at 16 :00 Ondansetron HCl (Zofran Inj) 4 mg Q4 PRN IV nausea Last administered on 22:32; Admin Dose 4 MG; Start 07/24/16 at 17:00 Metoclopramide HCl (Reglan) 5 mg Q4H PRN IV NAUSEA Last administered on 23:20; Admin Dose 5 MG; Start 07/24/16 at 22:30 Diagnostic Test (Pha) (Accu-Chek) 1 ea 02 XX Last administered on 08/09/16 02: 06; Admin Dose 1 EA; Start 07/26/16 at 12:00 Clonidine HCl (Catapres-Tts 2 Patch) 1 patch Q7D TRANSDERM Last administered on 08/03/16 06:32; Admin Dose 1 PATCH; Start 07/27/16 at 07:00; Status Future Hold Pantoprazole (Protonix Tab) 40 mg DAILY@06 PO Last administered on 08/09/16 05: 26; Admin Dose 40 MG; Start 07/28/16 at 06:00 Hydralazine HCl (Apresoline) 20 mg Q4 PRN IV ELEVATED BLOOD PRESSURE Last administered on 08/04/16 16:35; Admin Dose 20 MG; Start 07/28/16 at 02:00 Doxazosin Mesylate (Cardura) 2 mg HS PO Last administered on 08/05/16 21:57; Admin Dose 2 MG; Start 07/28/16 at 21:00; Status Future Hold Polyethylene Glycol (Miralax) 17 gm DAILY PRN GTB CONSTIPATION Last administered on 07/28/16 20:22; Admin Dose 17 GM; Start 07/28/16 at 19:30 Lorazepam (Ativan) 1 mg Q4H PRN IV anxiety Last administered on 07/30/16 20:48 ; Admin Dose 1 MG; Start 07/29/16 at 06:30 Ethambutol HCl (Myambutol) 900 mg TuThSa@20 PO Last administered on 08/09/16 21 :46; Admin Dose 900 MG; Start 07/31/16 at 20:00 Pyrazinamide (Pyrazinamide) 1,250 mg TuThSa@20 PO Last administered on 21:47; Admin Dose 1,250 MG; Start 07/31/16 at 20:00 Hydromorphone HCl (Dilaudid) 1 mg Q2H PRN IV pain Last administered on 21:20; Admin Dose 1 MG; Start 08/02/16 at 19:00 Hydralazine HCl (Apresoline) 25 mg Q8 PO Last administered on 08/06/16 05:44; Admin Dose 25 MG; Start 08/04/16 at 22:00; Status Future Hold Nifedipine (Procardia Xl) 30 mg BID PO ; Start 08/07/16 at 21:00; Status Future Hold Zolpidem Tartrate (Ambien) 5 mg HS PRN PO INSOMNIA Last administered on 22:32; Admin Dose 5 MG; Start 08/08/16 at 21:00 Benazepril HCl (Lotensin) 10 mg BID PO ; Start 08/09/16 at 09:00; Status Future Hold Metoprolol Tartrate 25 mg 25 mg BID GTB ; Start 08/09/16 at 21:00 Norepinephrine 16 mg/Dextrose 500 ml @ 1.87 mls/hr TITRATE IV ; Start 08/09/16 at 15:30 Meropenem 100 ml @ 200 mls/hr Q12 IVPB Last administered on 08/09/16 20:56; Admin Dose 200 MLS/HR; Start 08/09/16 at 21:00 Caspofungin 50 mg/ Sodium Chloride 250 ml @ 250 mls/hr Q24H IVPB ; Start at 17:00 Sodium Chloride (NS) 1,000 ml @ 50 mls/hr Q20H IV Last administered on t 17:45; Admin Dose 50 MLS/HR; Start 08/09/16 at 17:30 PAOLA MOODY MD Aug 09, 2016 21:53
[2016-08-10] VITALS (86 sets, daily range): BP systolic 61–126; BP diastolic 27–78; PULSE 70–96; RESP 10–27
[2016-08-10] MEDS: ACCUCHECK 2 AM XX SCH (02:00)
[2016-08-10] MEDS: SOD CHLORIDE 0.9% 1,000 ML IV SCH (05:07)
[2016-08-10] MEDS: PANTOPRAZOLE (EC) 40 MG TAB PO SCH (05:50)
[2016-08-10] MEDS: CALCIUM ACETATE 667 MG CAP PO SCH ×3 (08:14→17:28)
[2016-08-10] MEDS: PYRIDOXINE 50 MG TAB PO SCH (08:14)
[2016-08-10] MEDS: FERROUS SULFATE (EC) 325 MG TAB PO SCH ×2 (08:14→20:52)
[2016-08-10] MEDS: ISONIAZID 300 MG TAB PO SCH (08:14)
[2016-08-10] MEDS: RIFAMPIN 300 MG CAP PO SCH (08:14)
[2016-08-10] MEDS: SEVELAMER CARBONATE 0.8 GM PKT PO SCH ×3 (08:14→17:27)
[2016-08-10] MEDS: CHOLECALCIFEROL 400 UNITS TAB PO SCH (08:14)
[2016-08-10] MEDS: METOPROLOL 25 MG TAB GTB SCH ×2 (08:15→20:55)
[2016-08-10] MEDS: FAMOTIDINE 20 MG TAB PO SCH (08:15)
[2016-08-10] MEDS: MEROPENEM 500 MG/100 ML (PMX) 100 ML IVPB SCH ×2 (08:15→20:52)
[2016-08-10] MEDS: Insulin NOVOLOG SS MILD Algorithm (SS with meals and bedtime) SC SCH ×4 (08:17→21:00)
[2016-08-10] MEDS: INSULIN ASPART [NOVOLOG] 3 ML PEN SC SCH ×3 (08:18→14:10)
--- NOTE | 2016-08-10 10:52 | CONS ---
Date/Time of Note Date/Time of Note DATE: 08/10/16 TIME: 10:50 Assessment/Plan Assessment/Plan Chief Complaint/Hosp Course - possible tubercular empyema: R sided complex loculated air containing empyemas , visceral and parietal pleural calcifications. - a 35 mm lesion with possible cavitation in the anterior inferior RUL, possible recurrent tuberculosis - high risk for TB: history (originally from [facility], spends one month of each year in [facility], last in 09/2015), medical history (DM, ESRD), laboratory findings (positive quantiferon TB gold, granulomatous inflammation with focal necrosis on Bx of pleura) - AFB smear was negative x3, also M. tuberculosis DNA probe to the 1st sputum sample was undetectable in early 07/2016 - s/p first R VATS, total pulmonary decortication, R pleurodesis on 06/30/2016. Biopsy was negative for fungal stain and AFB stain (micro lab and pathology department), as well as malignancy. It showed granulomatous inflammation with focal necrosis and extensive hyalinization. - s/p second R VATS, decortication thoracotomy on 08/04/2016. Per Dr. Martinez, the tissue did not appear empyema. It was largely blood clots and tissue debris. Fluid was sent for cultures, but not tissue. Path showed blood and polarizable foreign material, no malignancy - sputum collected on 08/02/2016 was negative for mycobacterium tuberculosis DNA probe - h/o recurrent pleural effusion requiring thoracentesis approximately once a year, last performed in 04/2016 prior to this admission - positive quantiferon TB gold status of unknown duration. Per Pt, his past PPD was done in 2013, and was negative. - Our infection process control technician Lindsey contacted the TB control unit at [facility]: we learned on 07/11/2016 that Pt has h/o mycobacterial tuberculosis infection in 1997 and was treated between 1997 and 1998. - DM - Hgb A1c 5.2% 06/17/16 - ESRD on HD - CAD s/p CABG in 2010 and cardiac stent in 2013 - HIV screen negative in 07/2016 tested at [facility] - sepsis vs. sirs recommendations - f/u han cx, lactic acid, procalc, [id number], cdiff - cont. empiric abx vanco/jae/micafungin - pending: mycobacterium tuberculosis DNA probe to fluid in G[facility]O bulb was sent on 08/06/2016 - continue renally dosed RIPE plus vitamin B6 supplement (07/12/2016-) - check LFTs' weekly Problems: Consultation Date/Type/Reason Admit Date/Time Jul 24, 2016 at 12:53 Initial Consult Date 07/24/16 Type of Consultation: id Referring Provider: EVA COX MD 24 HR Interval Summary Free Text/Dictation d/w nursing. patient on levophed. had diarrhea yest but none today. of note: recently given Kayexalate. femoral line removed Exam/Review of Systems Vital Signs Vitals Vital Signs Date Time Temp Pulse Resp B/P Pulse Ox O2 Delivery O2 Flow Rate FiO2 08/10/16 10:30 79 23 91/52 98 08/10/16 10:00 Room Air 08/10/16 08:00 2.0 08/10/16 08:00 98.1 Intake and Output 08/09/16 08/09/16 08/10/16 15:00 23:00 07:00 Intake Total 850 ml 1790 ml 396.57 ml Output Total 550 ml 375 ml 955 ml Balance 300 ml 1415 ml -558.43 ml Exam Constitutional: alert, oriented, well developed Head: atraumatic, normocephalic Respiratory: clear to auscultation, normal air movement Cardiovascular: nl pulses, regular rate and rhythm Gastrointestinal: nl liver, spleen, non-tender, soft Results Result Diagram: 08/09/16 0500 08/09/16 0606 Results 24 hrs Laboratory Tests Test 08/09/16 12:51 08/09/16 17:51 08/09/16 20:55 08/10/16 02:06 Bedside Glucose 131 177 199 198 Test 08/10/16 08:13 Bedside Glucose 195 Medications Medications Current Medications Aspirin (Halfprin) 81 mg DAILY PO Last administered on 07/26/16 08:39; Admin Dose 81 MG; Start 07/25/16 at 09:00; Status Future Hold Atorvastatin Calcium (Lipitor) 10 mg QHS PO Last administered on 08/09/16 21:45 ; Admin Dose 10 MG; Start 07/24/16 at 21:00 Cholecalciferol (Vitamin D) 400 units DAILY PO Last administered on 08/10/16 08 :14; Admin Dose 400 UNITS; Start 07/25/16 at 09:00 Famotidine (Pepcid) 20 mg DAILY PO Last administered on 08/10/16 08:15; Admin Dose 20 MG; Start 07/25/16 at 09:00 Ferrous Sulfate (Ferrous Sulfate (Ec)) 325 mg BID PO Last administered on 08:14; Admin Dose 325 MG; Start 07/24/16 at 21:00 Acetaminophen/ Hydrocodone Bitart ([place] (5/325)) 1 tab Q4H PRN PO PAIN Last administered on 08/09/16 19:03; Admin Dose 1 TAB; Start 07/24/16 at 17:00 Isoniazid (Isoniazid) 300 mg DAILY PO Last administered on 08/10/16 08:14; Admin Dose 300 MG; Start 07/24/16 at 15:30 Pyridoxine HCl (Vitamin B6) 50 mg DAILY PO Last administered on 08/10/16 08:14 ; Admin Dose 50 MG; Start 07/25/16 at 09:00 Rifampin (Rifampin) 600 mg DAILY PO Last administered on 08/10/16 08:14; Admin Dose 600 MG; Start 07/25/16 at 09:00 Miscellaneous Information 1 ea NOTE XX ; Start 07/24/16 at 16:00 Glucose (Glutose) 15 gm Q15M PRN PO DECREASED GLUCOSE; Start 07/24/16 at 16:00 Glucose (Glutose) 22.5 gm Q15M PRN PO DECREASED GLUCOSE; Start 07/24/16 at 16: 00 Dextrose (D50w Syringe) 25 ml Q15M PRN IV DECREASED GLUCOSE; Start 07/24/16 at 16:00 Dextrose (D50w Syringe) 50 ml Q15M PRN IV DECREASED GLUCOSE; Start 07/24/16 at 16:00 Glucagon (Glucagen) 1 mg Q15M PRN IM DECREASED GLUCOSE; Start 07/24/16 at 16:00 Glucose (Glutose) 15 gm Q15M PRN BUCCAL DECREASED GLUCOSE; Start 07/24/16 at 16 :00 Ondansetron HCl (Zofran Inj) 4 mg Q4 PRN IV nausea Last administered on 22:32; Admin Dose 4 MG; Start 07/24/16 at 17:00 Metoclopramide HCl (Reglan) 5 mg Q4H PRN IV NAUSEA Last administered on 23:20; Admin Dose 5 MG; Start 07/24/16 at 22:30 Diagnostic Test (Pha) (Accu-Chek) 1 ea 02 XX Last administered on 08/09/16 02: 06; Admin Dose 1 EA; Start 07/26/16 at 12:00 Clonidine HCl (Catapres-Tts 2 Patch) 1 patch Q7D TRANSDERM Last administered on 08/03/16 06:32; Admin Dose 1 PATCH; Start 07/27/16 at 07:00; Status Future Hold Pantoprazole (Protonix Tab) 40 mg DAILY@06 PO Last administered on 08/10/16 05: 50; Admin Dose 40 MG; Start 07/28/16 at 06:00 Hydralazine HCl (Apresoline) 20 mg Q4 PRN IV ELEVATED BLOOD PRESSURE Last administered on 08/04/16 16:35; Admin Dose 20 MG; Start 07/28/16 at 02:00 Doxazosin Mesylate (Cardura) 2 mg HS PO Last administered on 08/05/16 21:57; Admin Dose 2 MG; Start 07/28/16 at 21:00; Status Future Hold Polyethylene Glycol (Miralax) 17 gm DAILY PRN GTB CONSTIPATION Last administered on 07/28/16 20:22; Admin Dose 17 GM; Start 07/28/16 at 19:30 Lorazepam (Ativan) 1 mg Q4H PRN IV anxiety Last administered on 07/30/16 20:48 ; Admin Dose 1 MG; Start 07/29/16 at 06:30 Ethambutol HCl (Myambutol) 900 mg TuThSa@20 PO Last administered on 08/09/16 21 :46; Admin Dose 900 MG; Start 07/31/16 at 20:00 Pyrazinamide (Pyrazinamide) 1,250 mg TuThSa@20 PO Last administered on 21:47; Admin Dose 1,250 MG; Start 07/31/16 at 20:00 Hydromorphone HCl (Dilaudid) 1 mg Q2H PRN IV pain Last administered on 21:20; Admin Dose 1 MG; Start 08/02/16 at 19:00 Hydralazine HCl (Apresoline) 25 mg Q8 PO Last administered on 08/06/16 05:44; Admin Dose 25 MG; Start 08/04/16 at 22:00; Status Future Hold Nifedipine (Procardia Xl) 30 mg BID PO ; Start 08/07/16 at 21:00; Status Future Hold Zolpidem Tartrate (Ambien) 5 mg HS PRN PO INSOMNIA Last administered on 22:32; Admin Dose 5 MG; Start 08/08/16 at 21:00 Benazepril HCl (Lotensin) 10 mg BID PO ; Start 08/09/16 at 09:00; Status Future Hold Metoprolol Tartrate 25 mg 25 mg BID GTB ; Start 08/09/16 at 21:00 Norepinephrine 16 mg/Dextrose 500 ml @ 1.87 mls/hr TITRATE IV Last administered on 08/10/16 02:01; Admin Dose 9.37 MLS/HR; Start 08/09/16 at 15:30 Meropenem 100 ml @ 200 mls/hr Q12 IVPB Last administered on 08/10/16 08:15; Admin Dose 200 MLS/HR; Start 08/09/16 at 21:00 Caspofungin 50 mg/ Sodium Chloride 250 ml @ 250 mls/hr Q24H IVPB ; Start at 17:00 Sodium Chloride (NS) 1,000 ml @ 50 mls/hr Q20H IV Last administered on 05:07; Admin Dose 50 MLS/HR; Start 08/09/16 at 17:30 Miscellaneous Information (*Rx Drug Level Order Reminder*) RANDOM VANCOMYCIN LEVEL 4... ONCE ONCE XX ; Start 08/11/16 at 05:00; Stop 08/11/16 at 05:01 BRENDA ISRAEL MD Aug 10, 2016 10:51
--- NOTE | 2016-08-10 11:12 | PN ---
Date/Time of Note Date/Time of Note DATE: 08/10/16 TIME: 11:10 Assessment/Plan VTE Prophylaxis VTE Prophylaxis Intervention: other Lines/Catheters IV [facility] Peripheral IV Urinary Cath still in place: Yes Assessment/Plan Assessment/Plan - Recurrent right pleural effusion consistent with empyema, cavitary lesions, status post right thoracotomy and pulmonary decortication on 08/04. -Hemoptysis, resolved. Dr. Dale is following in pulmonology consultation. Dr. Caitlin balderas is following an infection disease consultation. -Right former chest tube site bleeding, resolved. Dr. Martinez is following in thoracic surgery consultation. -Anemia of acute blood loss, patient had bleeding from the right femoral catheter as well as chest tube site on admission, status post blood transfusion , continue to monitor hemoglobin and hematocrit. Dr. Martinez is following in hematology consultation. 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 - End-stage renal disease, continue hemodialysis. Dr. Saunders is following in nephrology consultation. - Diabetes mellitus type 2 - GLYCEMIC CONTROL - Hypertension. Dr. De Santiago is following and cardiology consultation. Continue benazepril metoprolol hydralazine Procardia - Coronary artery disease, status post coronary artery bypass graft, s/p percutaneous transluminal coronary angioplasty and stent placement to left main and left anterior descending in 2014. - Permanent pacemaker. No acute issues. - Dyslipidemia. Continue Lipitor. - Hyponatremia-per assembler movement. Further recommendations based on clinical course. Plan of care discussed with Dr. Price. Further treatment depends upon patient's clinical course. Total critical care time spent 30 mins. Plan of care dw Dr Price/staff Subjective 24 Hr Interval Summary Constitutional: requiring IVF, requiring O2 Eyes: no complaints ENT: no complaints Respiratory: other (pain at surgical site where chest tube is.), shortness of breath Cardiovascular: no complaints Gastrointestinal: no complaints Genitourinary: no complaints Musculoskeletal: no complaints Skin: no complaints Neurologic: no complaints Endocrine: no complaints Lymphatic: no complaints Psychological: no complaints Immunologic: no complaints Exam/Review of Systems Vital Signs Vitals Vital Signs Date Time Temp Pulse Resp B/P Pulse Ox O2 Delivery O2 Flow Rate FiO2 08/10/16 10:30 79 23 91/52 98 08/10/16 10:00 Room Air 08/10/16 08:00 2.0 08/10/16 08:00 98.1 Intake and Output 08/09/16 08/09/16 08/10/16 15:00 23:00 07:00 Intake Total 850 ml 1790 ml 396.57 ml Output Total 550 ml 375 ml 955 ml Balance 300 ml 1415 ml -558.43 ml Exam Constitutional: alert, frail, oriented Psych: nl mood/affect Head: atraumatic Eyes: EOMI, nl sclera ENMT: nl external ears & nose Neck: non-tender Respiratory: diminished breath sounds Cardiovascular: nl pulses Gastrointestinal: non-tender, soft Musculoskeletal: nl extremities to inspection Extremities: normal pulses Neurological: nl mental status, nl speech Lymph: nontender Results Result Diagram: 08/09/16 0500 08/09/16 0606 Results 24 hrs Laboratory Tests Test 08/09/16 12:51 08/09/16 17:51 08/09/16 20:55 08/10/16 02:06 Bedside Glucose 131 177 199 198 Test 08/10/16 08:13 Bedside Glucose 195 Medications Medications Current Medications Aspirin (Halfprin) 81 mg DAILY PO Last administered on 07/26/16 08:39; Admin Dose 81 MG; Start 07/25/16 at 09:00; Status Future Hold Atorvastatin Calcium (Lipitor) 10 mg QHS PO Last administered on 08/09/16 21:45 ; Admin Dose 10 MG; Start 07/24/16 at 21:00 Cholecalciferol (Vitamin D) 400 units DAILY PO Last administered on 08/10/16 08 :14; Admin Dose 400 UNITS; Start 07/25/16 at 09:00 Famotidine (Pepcid) 20 mg DAILY PO Last administered on 08/10/16 08:15; Admin Dose 20 MG; Start 07/25/16 at 09:00 Ferrous Sulfate (Ferrous Sulfate (Ec)) 325 mg BID PO Last administered on 08:14; Admin Dose 325 MG; Start 07/24/16 at 21:00 Acetaminophen/ Hydrocodone Bitart ([place] (5/325)) 1 tab Q4H PRN PO PAIN Last administered on 08/09/16 19:03; Admin Dose 1 TAB; Start 07/24/16 at 17:00 Isoniazid (Isoniazid) 300 mg DAILY PO Last administered on 08/10/16 08:14; Admin Dose 300 MG; Start 07/24/16 at 15:30 Pyridoxine HCl (Vitamin B6) 50 mg DAILY PO Last administered on 08/10/16 08:14 ; Admin Dose 50 MG; Start 07/25/16 at 09:00 Rifampin (Rifampin) 600 mg DAILY PO Last administered on 08/10/16 08:14; Admin Dose 600 MG; Start 07/25/16 at 09:00 Miscellaneous Information 1 ea NOTE XX ; Start 07/24/16 at 16:00 Glucose (Glutose) 15 gm Q15M PRN PO DECREASED GLUCOSE; Start 07/24/16 at 16:00 Glucose (Glutose) 22.5 gm Q15M PRN PO DECREASED GLUCOSE; Start 07/24/16 at 16: 00 Dextrose (D50w Syringe) 25 ml Q15M PRN IV DECREASED GLUCOSE; Start 07/24/16 at 16:00 Dextrose (D50w Syringe) 50 ml Q15M PRN IV DECREASED GLUCOSE; Start 07/24/16 at 16:00 Glucagon (Glucagen) 1 mg Q15M PRN IM DECREASED GLUCOSE; Start 07/24/16 at 16:00 Glucose (Glutose) 15 gm Q15M PRN BUCCAL DECREASED GLUCOSE; Start 07/24/16 at 16 :00 Ondansetron HCl (Zofran Inj) 4 mg Q4 PRN IV nausea Last administered on 22:32; Admin Dose 4 MG; Start 07/24/16 at 17:00 Metoclopramide HCl (Reglan) 5 mg Q4H PRN IV NAUSEA Last administered on 23:20; Admin Dose 5 MG; Start 07/24/16 at 22:30 Diagnostic Test (Pha) (Accu-Chek) 1 ea 02 XX Last administered on 08/09/16 02: 06; Admin Dose 1 EA; Start 07/26/16 at 12:00 Clonidine HCl (Catapres-Tts 2 Patch) 1 patch Q7D TRANSDERM Last administered on 08/03/16 06:32; Admin Dose 1 PATCH; Start 07/27/16 at 07:00; Status Future Hold Pantoprazole (Protonix Tab) 40 mg DAILY@06 PO Last administered on 08/10/16 05: 50; Admin Dose 40 MG; Start 07/28/16 at 06:00 Hydralazine HCl (Apresoline) 20 mg Q4 PRN IV ELEVATED BLOOD PRESSURE Last administered on 08/04/16 16:35; Admin Dose 20 MG; Start 07/28/16 at 02:00 Doxazosin Mesylate (Cardura) 2 mg HS PO Last administered on 08/05/16 21:57; Admin Dose 2 MG; Start 07/28/16 at 21:00; Status Future Hold Polyethylene Glycol (Miralax) 17 gm DAILY PRN GTB CONSTIPATION Last administered on 07/28/16 20:22; Admin Dose 17 GM; Start 07/28/16 at 19:30 Lorazepam (Ativan) 1 mg Q4H PRN IV anxiety Last administered on 07/30/16 20:48 ; Admin Dose 1 MG; Start 07/29/16 at 06:30 Ethambutol HCl (Myambutol) 900 mg TuThSa@20 PO Last administered on 08/09/16 21 :46; Admin Dose 900 MG; Start 07/31/16 at 20:00 Pyrazinamide (Pyrazinamide) 1,250 mg TuThSa@20 PO Last administered on 21:47; Admin Dose 1,250 MG; Start 07/31/16 at 20:00 Hydromorphone HCl (Dilaudid) 1 mg Q2H PRN IV pain Last administered on 21:20; Admin Dose 1 MG; Start 08/02/16 at 19:00 Hydralazine HCl (Apresoline) 25 mg Q8 PO Last administered on 08/06/16 05:44; Admin Dose 25 MG; Start 08/04/16 at 22:00; Status Future Hold Nifedipine (Procardia Xl) 30 mg BID PO ; Start 08/07/16 at 21:00; Status Future Hold Zolpidem Tartrate (Ambien) 5 mg HS PRN PO INSOMNIA Last administered on 22:32; Admin Dose 5 MG; Start 08/08/16 at 21:00 Benazepril HCl (Lotensin) 10 mg BID PO ; Start 08/09/16 at 09:00; Status Future Hold Metoprolol Tartrate 25 mg 25 mg BID GTB ; Start 08/09/16 at 21:00 Norepinephrine 16 mg/Dextrose 500 ml @ 1.87 mls/hr TITRATE IV Last administered on 08/10/16 02:01; Admin Dose 9.37 MLS/HR; Start 08/09/16 at 15:30 Meropenem 100 ml @ 200 mls/hr Q12 IVPB Last administered on 08/10/16 08:15; Admin Dose 200 MLS/HR; Start 08/09/16 at 21:00 Caspofungin 50 mg/ Sodium Chloride 250 ml @ 250 mls/hr Q24H IVPB ; Start at 17:00 Sodium Chloride (NS) 1,000 ml @ 50 mls/hr Q20H IV Last administered on 05:07; Admin Dose 50 MLS/HR; Start 08/09/16 at 17:30 Miscellaneous Information (*Rx Drug Level Order Reminder*) RANDOM VANCOMYCIN LEVEL 4... ONCE ONCE XX ; Start 08/11/16 at 05:00; Stop 08/11/16 at 05:01 PATRICIA RUEDA Aug 10, 2016 11:12
--- NOTE | 2016-08-10 12:26 | CONS ---
Date/Time of Note Date/Time of Note DATE: 08/10/16 TIME: 12:23 Assessment/Plan Assessment/Plan Chief Complaint/Hosp Course IMPRESSION: 1. Abnormal electrocardiogram, assess for acute coronary syndrome with no current chest pain and recently negative stress test.-negative troponin x 3 2. History of a percutaneous transluminal coronary angioplasty and stent placement to left main and left anterior descending in 2014. 3. History of coronary artery bypass graft surgery. 4. Video assisted thoracoscopic surgery pleurodesis with leakage from the chest tube site.- now s/p repeat VATS/pleurodesis with CT with significant outpaut over the last 8 hours 5. Shortness of breath. 6. End-stage renal disease on hemodialysis. 7. Tuberculosis, on therapy. 8. Hypotension-now on levo 9. Diabetes mellitus. 10. Dyslipidemia. 11. Anemia-worsening s/p transfusion 12.Empyema/cavitary lesions by CT Recc: -Tele -Wean Levo as tolerated -Plavix/asa held in the setting of anemia/resume when possible -HD for volume removal as tolerated only -continue TB treatment -Follow CT output closely with ongoing surgical eval -Continue abx's and f/u cx data Problems: Consultation Date/Type/Reason Admit Date/Time Jul 24, 2016 at 12:53 Initial Consult Date 07/24/16 Type of Consultation: Cardiology Reason for Consultation Hypotension Referring Provider: EVA COX MD Exam/Review of Systems Vital Signs Vitals Vital Signs Date Time Temp Pulse Resp B/P Pulse Ox O2 Delivery O2 Flow Rate FiO2 08/10/16 12:00 78 08/10/16 11:45 14 95/45 99 08/10/16 11:00 Room Air 08/10/16 08:00 2.0 08/10/16 08:00 98.1 Intake and Output 08/09/16 08/09/16 08/10/16 15:00 23:00 07:00 Intake Total 850 ml 1790 ml 396.57 ml Output Total 550 ml 375 ml 955 ml Balance 300 ml 1415 ml -558.43 ml Exam Review of Systems: CONSTITUTIONAL: No fevers, chills. PULMONARY: No sob CARDIOVASCULAR: No chest pain/palpitations GASTROINTESTINAL: No nausea/vomiting. GENITOURINARY: No hematuria/dysuria. MUSCULOSKELETAL: No myagias/arthalgias. PSYCHIATRIC: The patient denies depression. NEUROLOGIC: lethargic Constitutional: alert Psych: no complaints Head: normocephalic ENMT: mucosa pink and moist Neck: jvd (8 cm water), supple Respiratory: other (CT L side) Cardiovascular: regular rate and rhythm Gastrointestinal: non-tender, soft Musculoskeletal: muscle tone (normal) Extremities: edema (nonw) Neurological: other (No focal deficits) Results Result Diagram: 08/09/16 0500 08/09/16 0606 Results 24 hrs Laboratory Tests Test 08/09/16 12:51 08/09/16 17:51 08/09/16 20:55 08/10/16 02:06 Bedside Glucose 131 177 199 198 Test 08/10/16 08:13 08/10/16 11:33 Bedside Glucose 195 197 Medications Medications Current Medications Aspirin (Halfprin) 81 mg DAILY PO Last administered on 07/26/16 08:39; Admin Dose 81 MG; Start 07/25/16 at 09:00; Status Future Hold Atorvastatin Calcium (Lipitor) 10 mg QHS PO Last administered on 08/09/16 21:45 ; Admin Dose 10 MG; Start 07/24/16 at 21:00 Cholecalciferol (Vitamin D) 400 units DAILY PO Last administered on 08/10/16 08 :14; Admin Dose 400 UNITS; Start 07/25/16 at 09:00 Famotidine (Pepcid) 20 mg DAILY PO Last administered on 08/10/16 08:15; Admin Dose 20 MG; Start 07/25/16 at 09:00 Ferrous Sulfate (Ferrous Sulfate (Ec)) 325 mg BID PO Last administered on 08:14; Admin Dose 325 MG; Start 07/24/16 at 21:00 Acetaminophen/ Hydrocodone Bitart ([place] (5/325)) 1 tab Q4H PRN PO PAIN Last administered on 08/09/16 19:03; Admin Dose 1 TAB; Start 07/24/16 at 17:00 Isoniazid (Isoniazid) 300 mg DAILY PO Last administered on 08/10/16 08:14; Admin Dose 300 MG; Start 07/24/16 at 15:30 Pyridoxine HCl (Vitamin B6) 50 mg DAILY PO Last administered on 08/10/16 08:14 ; Admin Dose 50 MG; Start 07/25/16 at 09:00 Rifampin (Rifampin) 600 mg DAILY PO Last administered on 08/10/16 08:14; Admin Dose 600 MG; Start 07/25/16 at 09:00 Miscellaneous Information 1 ea NOTE XX ; Start 07/24/16 at 16:00 Glucose (Glutose) 15 gm Q15M PRN PO DECREASED GLUCOSE; Start 07/24/16 at 16:00 Glucose (Glutose) 22.5 gm Q15M PRN PO DECREASED GLUCOSE; Start 07/24/16 at 16: 00 Dextrose (D50w Syringe) 25 ml Q15M PRN IV DECREASED GLUCOSE; Start 07/24/16 at 16:00 Dextrose (D50w Syringe) 50 ml Q15M PRN IV DECREASED GLUCOSE; Start 07/24/16 at 16:00 Glucagon (Glucagen) 1 mg Q15M PRN IM DECREASED GLUCOSE; Start 07/24/16 at 16:00 Glucose (Glutose) 15 gm Q15M PRN BUCCAL DECREASED GLUCOSE; Start 07/24/16 at 16 :00 Ondansetron HCl (Zofran Inj) 4 mg Q4 PRN IV nausea Last administered on 22:32; Admin Dose 4 MG; Start 07/24/16 at 17:00 Metoclopramide HCl (Reglan) 5 mg Q4H PRN IV NAUSEA Last administered on 23:20; Admin Dose 5 MG; Start 07/24/16 at 22:30 Diagnostic Test (Pha) (Accu-Chek) 1 ea 02 XX Last administered on 08/09/16 02: 06; Admin Dose 1 EA; Start 07/26/16 at 12:00 Clonidine HCl (Catapres-Tts 2 Patch) 1 patch Q7D TRANSDERM Last administered on 08/03/16 06:32; Admin Dose 1 PATCH; Start 07/27/16 at 07:00; Status Future Hold Pantoprazole (Protonix Tab) 40 mg DAILY@06 PO Last administered on 08/10/16 05: 50; Admin Dose 40 MG; Start 07/28/16 at 06:00 Hydralazine HCl (Apresoline) 20 mg Q4 PRN IV ELEVATED BLOOD PRESSURE Last administered on 08/04/16 16:35; Admin Dose 20 MG; Start 07/28/16 at 02:00 Doxazosin Mesylate (Cardura) 2 mg HS PO Last administered on 08/05/16 21:57; Admin Dose 2 MG; Start 07/28/16 at 21:00; Status Future Hold Polyethylene Glycol (Miralax) 17 gm DAILY PRN GTB CONSTIPATION Last administered on 07/28/16 20:22; Admin Dose 17 GM; Start 07/28/16 at 19:30 Lorazepam (Ativan) 1 mg Q4H PRN IV anxiety Last administered on 07/30/16 20:48 ; Admin Dose 1 MG; Start 07/29/16 at 06:30 Ethambutol HCl (Myambutol) 900 mg TuThSa@20 PO Last administered on 08/09/16 21 :46; Admin Dose 900 MG; Start 07/31/16 at 20:00 Pyrazinamide (Pyrazinamide) 1,250 mg TuThSa@20 PO Last administered on 21:47; Admin Dose 1,250 MG; Start 07/31/16 at 20:00 Hydromorphone HCl (Dilaudid) 1 mg Q2H PRN IV pain Last administered on 21:20; Admin Dose 1 MG; Start 08/02/16 at 19:00 Hydralazine HCl (Apresoline) 25 mg Q8 PO Last administered on 08/06/16 05:44; Admin Dose 25 MG; Start 08/04/16 at 22:00; Status Future Hold Nifedipine (Procardia Xl) 30 mg BID PO ; Start 08/07/16 at 21:00; Status Future Hold Zolpidem Tartrate (Ambien) 5 mg HS PRN PO INSOMNIA Last administered on 22:32; Admin Dose 5 MG; Start 08/08/16 at 21:00 Benazepril HCl (Lotensin) 10 mg BID PO ; Start 08/09/16 at 09:00; Status Future Hold Metoprolol Tartrate 25 mg 25 mg BID GTB ; Start 08/09/16 at 21:00 Norepinephrine 16 mg/Dextrose 500 ml @ 1.87 mls/hr TITRATE IV Last administered on 08/10/16 02:01; Admin Dose 9.37 MLS/HR; Start 08/09/16 at 15:30 Meropenem 100 ml @ 200 mls/hr Q12 IVPB Last administered on 08/10/16 08:15; Admin Dose 200 MLS/HR; Start 08/09/16 at 21:00 Caspofungin 50 mg/ Sodium Chloride 250 ml @ 250 mls/hr Q24H IVPB ; Start at 17:00 Sodium Chloride (NS) 1,000 ml @ 50 mls/hr Q20H IV Last administered on 05:07; Admin Dose 50 MLS/HR; Start 08/09/16 at 17:30 Miscellaneous Information (*Rx Drug Level Order Reminder*) RANDOM VANCOMYCIN LEVEL 4... ONCE ONCE XX ; Start 08/11/16 at 05:00; Stop 08/11/16 at 05:01 SHERITA SCOTT Aug 10, 2016 12:26
--- NOTE | 2016-08-10 12:39 | CONS ---
Date/Time of Note Date/Time of Note DATE: 08/10/16 TIME: 12:35 Consult Date/Type/Reason Admit Date/Time Jul 24, 2016 at 12:53 Initial Consult Date 07/25/16 Type of Consultation: Pulm/CCM Ordering Provider: EVA COX MD Subjective Chest with notable milky output--> made worse with fatty foods. Objective Vital Signs Date Time Temp Pulse Resp B/P Pulse Ox O2 Delivery O2 Flow Rate FiO2 08/10/16 12:00 78 08/10/16 11:45 14 95/45 99 08/10/16 11:00 Room Air 08/10/16 08:00 2.0 08/10/16 08:00 98.1 Intake and Output 08/09/16 08/09/16 08/10/16 15:00 23:00 07:00 Intake Total 850 ml 1790 ml 396.57 ml Output Total 550 ml 375 ml 955 ml Balance 300 ml 1415 ml -558.43 ml Exam HEENT: Neck supple; no JVD; no LAD CVS: RRR, S1 and S2 CHEST: Decreased BS on R ABD: Soft, NT, + BS EXT: No c/c/e Results/Medications Result Diagram: 08/09/16 0500 08/09/16 0606 Results 24 hrs Laboratory Tests Test 08/09/16 12:51 08/09/16 17:51 08/09/16 20:55 08/10/16 02:06 Bedside Glucose 131 177 199 198 Test 08/10/16 08:13 08/10/16 11:33 Bedside Glucose 195 197 Medications Current Medications Aspirin (Halfprin) 81 mg DAILY PO Last administered on 07/26/16 08:39; Admin Dose 81 MG; Start 07/25/16 at 09:00; Status Future Hold Atorvastatin Calcium (Lipitor) 10 mg QHS PO Last administered on 08/09/16 21:45 ; Admin Dose 10 MG; Start 07/24/16 at 21:00 Cholecalciferol (Vitamin D) 400 units DAILY PO Last administered on 08/10/16 08 :14; Admin Dose 400 UNITS; Start 07/25/16 at 09:00 Famotidine (Pepcid) 20 mg DAILY PO Last administered on 08/10/16 08:15; Admin Dose 20 MG; Start 07/25/16 at 09:00 Ferrous Sulfate (Ferrous Sulfate (Ec)) 325 mg BID PO Last administered on 08:14; Admin Dose 325 MG; Start 07/24/16 at 21:00 Acetaminophen/ Hydrocodone Bitart ([place] (5/325)) 1 tab Q4H PRN PO PAIN Last administered on 08/09/16 19:03; Admin Dose 1 TAB; Start 07/24/16 at 17:00 Isoniazid (Isoniazid) 300 mg DAILY PO Last administered on 08/10/16 08:14; Admin Dose 300 MG; Start 07/24/16 at 15:30 Pyridoxine HCl (Vitamin B6) 50 mg DAILY PO Last administered on 08/10/16 08:14 ; Admin Dose 50 MG; Start 07/25/16 at 09:00 Rifampin (Rifampin) 600 mg DAILY PO Last administered on 08/10/16 08:14; Admin Dose 600 MG; Start 07/25/16 at 09:00 Miscellaneous Information 1 ea NOTE XX ; Start 07/24/16 at 16:00 Glucose (Glutose) 15 gm Q15M PRN PO DECREASED GLUCOSE; Start 07/24/16 at 16:00 Glucose (Glutose) 22.5 gm Q15M PRN PO DECREASED GLUCOSE; Start 07/24/16 at 16: 00 Dextrose (D50w Syringe) 25 ml Q15M PRN IV DECREASED GLUCOSE; Start 07/24/16 at 16:00 Dextrose (D50w Syringe) 50 ml Q15M PRN IV DECREASED GLUCOSE; Start 07/24/16 at 16:00 Glucagon (Glucagen) 1 mg Q15M PRN IM DECREASED GLUCOSE; Start 07/24/16 at 16:00 Glucose (Glutose) 15 gm Q15M PRN BUCCAL DECREASED GLUCOSE; Start 07/24/16 at 16 :00 Ondansetron HCl (Zofran Inj) 4 mg Q4 PRN IV nausea Last administered on 22:32; Admin Dose 4 MG; Start 07/24/16 at 17:00 Metoclopramide HCl (Reglan) 5 mg Q4H PRN IV NAUSEA Last administered on 23:20; Admin Dose 5 MG; Start 07/24/16 at 22:30 Diagnostic Test (Pha) (Accu-Chek) 1 ea 02 XX Last administered on 08/09/16 02: 06; Admin Dose 1 EA; Start 07/26/16 at 12:00 Clonidine HCl (Catapres-Tts 2 Patch) 1 patch Q7D TRANSDERM Last administered on 08/03/16 06:32; Admin Dose 1 PATCH; Start 07/27/16 at 07:00; Status Future Hold Pantoprazole (Protonix Tab) 40 mg DAILY@06 PO Last administered on 08/10/16 05: 50; Admin Dose 40 MG; Start 07/28/16 at 06:00 Hydralazine HCl (Apresoline) 20 mg Q4 PRN IV ELEVATED BLOOD PRESSURE Last administered on 08/04/16 16:35; Admin Dose 20 MG; Start 07/28/16 at 02:00 Doxazosin Mesylate (Cardura) 2 mg HS PO Last administered on 08/05/16 21:57; Admin Dose 2 MG; Start 07/28/16 at 21:00; Status Future Hold Polyethylene Glycol (Miralax) 17 gm DAILY PRN GTB CONSTIPATION Last administered on 07/28/16 20:22; Admin Dose 17 GM; Start 07/28/16 at 19:30 Lorazepam (Ativan) 1 mg Q4H PRN IV anxiety Last administered on 07/30/16 20:48 ; Admin Dose 1 MG; Start 07/29/16 at 06:30 Ethambutol HCl (Myambutol) 900 mg TuThSa@20 PO Last administered on 08/09/16 21 :46; Admin Dose 900 MG; Start 07/31/16 at 20:00 Pyrazinamide (Pyrazinamide) 1,250 mg TuThSa@20 PO Last administered on 21:47; Admin Dose 1,250 MG; Start 07/31/16 at 20:00 Hydromorphone HCl (Dilaudid) 1 mg Q2H PRN IV pain Last administered on 21:20; Admin Dose 1 MG; Start 08/02/16 at 19:00 Hydralazine HCl (Apresoline) 25 mg Q8 PO Last administered on 08/06/16 05:44; Admin Dose 25 MG; Start 08/04/16 at 22:00; Status Future Hold Nifedipine (Procardia Xl) 30 mg BID PO ; Start 08/07/16 at 21:00; Status Future Hold Zolpidem Tartrate (Ambien) 5 mg HS PRN PO INSOMNIA Last administered on 22:32; Admin Dose 5 MG; Start 08/08/16 at 21:00 Benazepril HCl (Lotensin) 10 mg BID PO ; Start 08/09/16 at 09:00; Status Future Hold Metoprolol Tartrate 25 mg 25 mg BID GTB ; Start 08/09/16 at 21:00 Norepinephrine 16 mg/Dextrose 500 ml @ 1.87 mls/hr TITRATE IV Last administered on 08/10/16 02:01; Admin Dose 9.37 MLS/HR; Start 08/09/16 at 15:30 Meropenem 100 ml @ 200 mls/hr Q12 IVPB Last administered on 08/10/16 08:15; Admin Dose 200 MLS/HR; Start 08/09/16 at 21:00 Caspofungin 50 mg/ Sodium Chloride 250 ml @ 250 mls/hr Q24H IVPB ; Start at 17:00 Sodium Chloride (NS) 1,000 ml @ 50 mls/hr Q20H IV Last administered on 05:07; Admin Dose 50 MLS/HR; Start 08/09/16 at 17:30 Miscellaneous Information (*Rx Drug Level Order Reminder*) RANDOM VANCOMYCIN LEVEL 4... ONCE ONCE XX ; Start 08/11/16 at 05:00; Stop 08/11/16 at 05:01 Assessment/Plan Additional Assessment/Plan IMP: 1. 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 Sepsis: concern for catheter-related infection-> line removed 3. Milky Drainage from right CT: r/o chylous vs. pseudochylous effusion 4. End-stage renal failure on hemodialysis RECS: 1. Await pleural fluid triglycerides, cholesterol and cytology for chylomicrons 2. Provide line holiday for one more day 3. If chylothorax is confirmed, would consider lymphangiogram and would start octreotide. In the meantime, have nutrition start a MCT diet. 4. Follow CT output 5. albumin 25% 100 ml 6. Dopamine for pressor support as thru peripheral line 35 min cc time SONYA ODEN MD Aug 10, 2016 12:39
[2016-08-10] MEDS ORDERED: ALBUMIN HUMAN 25% 100 ML IV ONE (13:00)
[2016-08-10] MEDS ORDERED: DOPamine 1,600 MG in DEXTROSE 5% 210 ML IV SCH (13:00)
--- NOTE | 2016-08-10 13:57 | PN ---
Date/Time of Note Date/Time of Note DATE: 08/10/16 TIME: 13:55 Assessment/Plan Lines/Catheters IV Catheter Type (from Nrsg): Peripheral IV Jonas in Place (from Nrsg): Yes Assessment/Plan Chief Complaint/Hosp Course IMPRESSION: Right chest tube site bleeding, which has now subsided completely. Hgb stable Would monitor the hemoglobin levels and stop the antiplatelet. SP VATS Decortication CT output [address] HD cath tomorrow Problems: Subjective 24 Hr Interval Summary Constitutional: improved Pain Control: mild Exam/Review of Systems Vital Signs Vitals Vital Signs Date Time Temp Pulse Resp B/P Pulse Ox O2 Delivery O2 Flow Rate FiO2 08/10/16 13:00 78 21 100/55 98 Room Air 08/10/16 12:00 98.8 08/10/16 08:00 2.0 Intake and Output 08/09/16 08/09/16 08/10/16 15:00 23:00 07:00 Intake Total 850 ml 1790 ml 396.57 ml Output Total 550 ml 375 ml 955 ml Balance 300 ml 1415 ml -558.43 ml Exam ENMT: mucosa pink and moist, nl external ears & nose, nl lips & teeth, nl nasal mucosa & septum Neck: non-tender, supple Respiratory: clear to auscultation, normal air movement Cardiovascular: nl pulses, regular rate and rhythm Results Result Diagram: 08/09/16 0500 08/09/16 0606 LILIA FELIZ MD Aug 10, 2016 13:57
[2016-08-10] MEDS: ONDANSETRON 4 MG INJ IV PRN ×2 (14:53→18:57)
[2016-08-10] MEDS: DOPamine 1,600 MG in DEXTROSE 5% 210 ML IV SCH (15:22)
[2016-08-10] MEDS ORDERED: HEPARIN 1000 UNITS/ML 10 ML INJ ONE (16:22)
[2016-08-10] MEDS: ACETAMINOPHEN 325 MG TAB PO PRN (16:43)
[2016-08-10] MEDS: CASPOFUNGIN 50 MG in SOD CHLORIDE 0.9% 250 ML IVPB SCH (17:36)
[2016-08-10 17:47] LABS: ADD SCAN DIFF NO
[2016-08-10 17:53] LABS: ABNORMAL IP MESSAGE 1; BASOPHILS % 0.2 % (0.0-2.0); EOSINOPHILS # 0.2 10^3/ul (0.0-0.5); EOSINOPHILS % 1.3 % (0.0-7.0); HEMATOCRIT 29.5 % (42.0-52.0); HEMOGLOBIN 10.1 g/dl (14.0-18.0); LYMPHOCYTES # 0.6 10^3/ul (0.8-2.9); LYMPHOCYTES % 3.5 % (15.0-51.0); MEAN CORPUSCULAR HEMOGLOBIN 32.5 pg (29.0-33.0); MEAN CORPUSCULAR HGB CONC 34.2 g/dl (32.0-37.0); MEAN CORPUSCULAR VOLUME 94.9 fl (82.0-101.0); MONOCYTE # 1.7 10^3/ul (0.3-0.9); MONOCYTES % 10.2 % (0.0-11.0); NEUTROPHILS % 83.9 % (39.0-77.0); PLATELET COUNT 312 10^3/UL (140-415); RED BLOOD COUNT 3.11 10^6/ul (4.70-6.10); RED CELL DISTRIBUTION WIDTH 16.1 % (11.5-14.5); WHITE BLOOD COUNT 16.7 10^3/ul (4.8-10.8)
[2016-08-10 18:03] LABS: ALBUMIN 2.8 g/dl (3.3-4.9)
--- NOTE | 2016-08-10 18:03 | OPR ---
DATE OF OPERATION: 08/10/2016 PROCEDURE: Left femoral triple lumen hemodialysis catheter insertion. INDICATION: Need for hemodialysis as well as IV access. CONSENT: After risks, benefits, and alternatives of procedure were discussed with the patient, a si gned informed consent was obtained. MEDICATIONS USED: Lidocaine 1% of 3 mL locally. TECHNIQUE: Under strict sterile precaution and using direct ultrasound guidance, the left femoral v ein was cannulated upon first attempt and, via Seldinger technique, the catheter was inserted and th e guidewire was removed. All ports were flushed with saline. Heparin 1.5 mL was infused into each of the 2 dialysis ports. The catheter was sutured in place with 3-0 silk sutures. Sterile dressing s were applied. COMPLICATIONS: None. FOLLOWUP STUDIES: None necessary. Dictated By: SONYA ODEN MD NK/NTS Conf#: [id number] DID#: [id number] CC: PAOLA MOODY MD; EVA COX MD; MATILDE DEWEY MD;*EndCC*
[2016-08-10 18:05] LABS: BILIRUBIN,DIRECT 2.6 mg/dl (0.00-0.20); BILIRUBIN,INDIRECT 1.1 mg/dl (0-1.1); BILIRUBIN,TOTAL 3.7 mg/dl (0.2-1.3)
[2016-08-10 18:06] LABS: ALBUMIN/GLOBULIN RATIO 1.07; CALCIUM 7.4 mg/dl (8.4-10.2); TOTAL PROTEIN 5.4 g/dl (6.1-8.1)
[2016-08-10 18:07] LABS: HDL CHOLESTEROL 11 mg/dl (30-78); TOTAL PROTEIN 5.3 g/dl (6.1-8.1); TRIGLYCERIDES 98 mg/dl (0-149)
[2016-08-10 18:20] LABS: CREATININE 8.99 mg/dl (0.61-1.24)
[2016-08-10 18:21] LABS: CHOLESTEROL < 50 mg/dl (100-200)
[2016-08-10] MEDS: ATORVASTATIN 10 MG TAB PO SCH (20:52)
--- NOTE | 2016-08-10 22:28 | CONS ---
Date/Time of Note Date/Time of Note DATE: 08/10/16 TIME: 22:27 Assessment/Plan Assessment/Plan Chief Complaint/Hosp Course IMPRESSION: 1. Recurrent pleural effusions. s/p vats 2. Lung infiltrate./cavitary lesion 3. chronic lung disease. 4. Hypertension.now low 5. Diabetes mellitus. 6. End-stage renal disease. 7. anemia. 8. cad. 9. hypotension 10. ashd 11. PLEURAL EFFUSIN 12. The patient on anti-tuberculosis treatment. 13. 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 PLAN per id and surg ctube care hd when bp stable iv fluid Problems: Consultation Date/Type/Reason Admit Date/Time Jul 24, 2016 at 12:53 Initial Consult Date 07/25/16 Type of Consultation: renal Referring Provider: EVA COX MD 24 HR Interval Summary Subjective hx not possible: other (increased pleural drainage) Exam/Review of Systems Vital Signs Vitals Vital Signs Date Time Temp Pulse Resp B/P Pulse Ox O2 Delivery O2 Flow Rate FiO2 08/10/16 20:00 75 08/10/16 18:45 19 94/52 97 08/10/16 18:00 Room Air 08/10/16 16:00 98.1 08/10/16 08:00 2.0 Intake and Output 08/09/16 08/09/16 08/10/16 15:00 23:00 07:00 Intake Total 850 ml 1790 ml 396.57 ml Output Total 550 ml 375 ml 955 ml Balance 300 ml 1415 ml -558.43 ml Exam Neck: supple Respiratory: diminished breath sounds Cardiovascular: regular rate and rhythm Gastrointestinal: bowel sounds, non-tender, soft Extremities: edema (tr) Results Result Diagram: 08/10/16 1735 08/10/16 1725 Results 24 hrs Laboratory Tests Test 08/10/16 02:06 08/10/16 08:13 08/10/16 11:33 08/10/16 17:25 Bedside Glucose 198 195 197 Sodium Level 130 L Potassium Level 5.0 Chloride Level 96 L Carbon Dioxide Level 17 L Anion Gap 22 H Blood Urea Nitrogen 117 H Creatinine 8.99 H Glucose Level 155 Lactic Acid Level 1.0 Calcium Level 7.4 L Total Bilirubin 3.7 H Direct Bilirubin 2.60 H Indirect Bilirubin 1.1 Aspartate Amino Transf (AST/SGOT) 37 Alanine Aminotransferase (ALT/SGPT) 22 Alkaline Phosphatase 110 Total Protein 5.3 L Albumin 2.8 L Globulin 2.60 Albumin/Globulin Ratio 1.07 Triglycerides Level 98 Cholesterol Level < 50 L LDL Cholesterol, Calculated HDL Cholesterol 11 L Cholesterol/HDL Ratio Test 08/10/16 17:26 08/10/16 17:35 08/10/16 20:05 Bedside Glucose 155 White Blood Count 16.7 #H Red Blood Count 3.11 L Hemoglobin 10.1 L Hematocrit 29.5 L Mean Corpuscular Volume 94.9 Mean Corpuscular Hemoglobin 32.5 Mean Corpuscular Hemoglobin Concent 34.2 Red Cell Distribution Width 16.1 H Platelet Count 312 Mean Platelet Volume 10.0 Neutrophils % 83.9 H Lymphocytes % 3.5 L Monocytes % 10.2 Eosinophils % 1.3 Basophils % 0.2 Nucleated Red Blood Cells % 0.0 Neutrophils # 14.0 H Lymphocytes # 0.6 L Monocytes # 1.7 H Eosinophils # 0.2 Basophils # 0.0 Nucleated Red Blood Cells # 0.0 Lactic Acid Level 1.0 Medications Medications Current Medications Aspirin (Halfprin) 81 mg DAILY PO Last administered on 07/26/16 08:39; Admin Dose 81 MG; Start 07/25/16 at 09:00; Status Future Hold Atorvastatin Calcium (Lipitor) 10 mg QHS PO Last administered on 08/10/16 20:52 ; Admin Dose 10 MG; Start 07/24/16 at 21:00 Cholecalciferol (Vitamin D) 400 units DAILY PO Last administered on 08/10/16 08 :14; Admin Dose 400 UNITS; Start 07/25/16 at 09:00 Famotidine (Pepcid) 20 mg DAILY PO Last administered on 08/10/16 08:15; Admin Dose 20 MG; Start 07/25/16 at 09:00 Ferrous Sulfate (Ferrous Sulfate (Ec)) 325 mg BID PO Last administered on 20:52; Admin Dose 325 MG; Start 07/24/16 at 21:00 Acetaminophen/ Hydrocodone Bitart ([place] (5/325)) 1 tab Q4H PRN PO PAIN Last administered on 08/09/16 19:03; Admin Dose 1 TAB; Start 07/24/16 at 17:00 Isoniazid (Isoniazid) 300 mg DAILY PO Last administered on 08/10/16 08:14; Admin Dose 300 MG; Start 07/24/16 at 15:30 Pyridoxine HCl (Vitamin B6) 50 mg DAILY PO Last administered on 08/10/16 08:14 ; Admin Dose 50 MG; Start 07/25/16 at 09:00 Rifampin (Rifampin) 600 mg DAILY PO Last administered on 08/10/16 08:14; Admin Dose 600 MG; Start 07/25/16 at 09:00 Miscellaneous Information 1 ea NOTE XX ; Start 07/24/16 at 16:00 Glucose (Glutose) 15 gm Q15M PRN PO DECREASED GLUCOSE; Start 07/24/16 at 16:00 Glucose (Glutose) 22.5 gm Q15M PRN PO DECREASED GLUCOSE; Start 07/24/16 at 16: 00 Dextrose (D50w Syringe) 25 ml Q15M PRN IV DECREASED GLUCOSE; Start 07/24/16 at 16:00 Dextrose (D50w Syringe) 50 ml Q15M PRN IV DECREASED GLUCOSE; Start 07/24/16 at 16:00 Glucagon (Glucagen) 1 mg Q15M PRN IM DECREASED GLUCOSE; Start 07/24/16 at 16:00 Glucose (Glutose) 15 gm Q15M PRN BUCCAL DECREASED GLUCOSE; Start 07/24/16 at 16 :00 Ondansetron HCl (Zofran Inj) 4 mg Q4 PRN IV nausea Last administered on 18:57; Admin Dose 4 MG; Start 07/24/16 at 17:00 Metoclopramide HCl (Reglan) 5 mg Q4H PRN IV NAUSEA Last administered on 23:20; Admin Dose 5 MG; Start 07/24/16 at 22:30 Diagnostic Test (Pha) (Accu-Chek) 1 ea 02 XX Last administered on 08/09/16 02: 06; Admin Dose 1 EA; Start 07/26/16 at 12:00 Clonidine HCl (Catapres-Tts 2 Patch) 1 patch Q7D TRANSDERM Last administered on 08/03/16 06:32; Admin Dose 1 PATCH; Start 07/27/16 at 07:00; Status Future Hold Pantoprazole (Protonix Tab) 40 mg DAILY@06 PO Last administered on 08/10/16 05: 50; Admin Dose 40 MG; Start 07/28/16 at 06:00 Hydralazine HCl (Apresoline) 20 mg Q4 PRN IV ELEVATED BLOOD PRESSURE Last administered on 08/04/16 16:35; Admin Dose 20 MG; Start 07/28/16 at 02:00 Doxazosin Mesylate (Cardura) 2 mg HS PO Last administered on 08/05/16 21:57; Admin Dose 2 MG; Start 07/28/16 at 21:00; Status Future Hold Polyethylene Glycol (Miralax) 17 gm DAILY PRN GTB CONSTIPATION Last administered on 07/28/16 20:22; Admin Dose 17 GM; Start 07/28/16 at 19:30 Lorazepam (Ativan) 1 mg Q4H PRN IV anxiety Last administered on 07/30/16 20:48 ; Admin Dose 1 MG; Start 07/29/16 at 06:30 Ethambutol HCl (Myambutol) 900 mg TuThSa@20 PO Last administered on 08/09/16 21 :46; Admin Dose 900 MG; Start 07/31/16 at 20:00 Pyrazinamide (Pyrazinamide) 1,250 mg TuThSa@20 PO Last administered on 21:47; Admin Dose 1,250 MG; Start 07/31/16 at 20:00 Hydromorphone HCl (Dilaudid) 1 mg Q2H PRN IV pain Last administered on 21:20; Admin Dose 1 MG; Start 08/02/16 at 19:00 Hydralazine HCl (Apresoline) 25 mg Q8 PO Last administered on 08/06/16 05:44; Admin Dose 25 MG; Start 08/04/16 at 22:00; Status Future Hold Nifedipine (Procardia Xl) 30 mg BID PO ; Start 08/07/16 at 21:00; Status Future Hold Zolpidem Tartrate (Ambien) 5 mg HS PRN PO INSOMNIA Last administered on 22:32; Admin Dose 5 MG; Start 08/08/16 at 21:00 Benazepril HCl (Lotensin) 10 mg BID PO ; Start 08/09/16 at 09:00; Status Future Hold Metoprolol Tartrate 25 mg 25 mg BID GTB ; Start 08/09/16 at 21:00 Norepinephrine 16 mg/Dextrose 500 ml @ 1.87 mls/hr TITRATE IV Last administered on 08/10/16 02:01; Admin Dose 9.37 MLS/HR; Start 08/09/16 at 15:30 Meropenem 100 ml @ 200 mls/hr Q12 IVPB Last administered on 08/10/16 20:52; Admin Dose 200 MLS/HR; Start 08/09/16 at 21:00 Caspofungin 50 mg/ Sodium Chloride 250 ml @ 250 mls/hr Q24H IVPB Last administered on 08/10/16 17:36; Admin Dose 250 MLS/HR; Start 08/10/16 at 17:00 Sodium Chloride (NS) 1,000 ml @ 50 mls/hr Q20H IV Last administered on 05:07; Admin Dose 50 MLS/HR; Start 08/09/16 at 17:30 Miscellaneous Information RANDOM VANCOMYCIN LEVEL 4... ONCE ONCE XX ; Start 02/17 at 05:00; Stop 08/11/16 at 05:01 Dopamine HCl/ Dextrose (D5W) 250 ml @ 1.71 mls/hr TITRATE IV Last administered on 08/10/16 15:22; Admin Dose 1.71 MLS/HR; Start 08/10/16 at 15:30 Acetaminophen (Tylenol Tab) 650 mg Q6H PRN PO PAIN AND OR ELEVATED TEMP Last administered on 08/10/16 16:43; Admin Dose 650 MG; Start 08/10/16 at 16:30 PAOLA MOODY MD Aug 10, 2016 22:28
[2016-08-11] VITALS (94 sets, daily range): BP systolic 60–178; BP diastolic 35–85; PULSE 81–125; RESP 13–37
[2016-08-11] MEDS: ACCUCHECK 2 AM XX SCH (01:52)
[2016-08-11] MEDS: ACETAMINOPHEN 325 MG TAB PO PRN ×2 (03:39→18:22)
[2016-08-11 04:54] LABS: ADD SCAN DIFF NO
[2016-08-11 04:57] LABS: ABNORMAL IP MESSAGE 1; BASOPHILS % 0.2 % (0.0-2.0); EOSINOPHILS # 0.1 10^3/ul (0.0-0.5); EOSINOPHILS % 0.4 % (0.0-7.0); HEMATOCRIT 32.2 % (42.0-52.0); HEMOGLOBIN 10.9 g/dl (14.0-18.0); LYMPHOCYTES # 0.3 10^3/ul (0.8-2.9); LYMPHOCYTES % 1.7 % (15.0-51.0); MEAN CORPUSCULAR HEMOGLOBIN 32.3 pg (29.0-33.0); MEAN CORPUSCULAR HGB CONC 33.9 g/dl (32.0-37.0); MEAN CORPUSCULAR VOLUME 95.5 fl (82.0-101.0); MEAN PLATELET VOLUME 10.1 fl (7.4-10.4); MONOCYTE # 1.4 10^3/ul (0.3-0.9); MONOCYTES % 7.6 % (0.0-11.0); NEUTROPHILS % 89.1 % (39.0-77.0); PLATELET COUNT 361 10^3/UL (140-415); RED BLOOD COUNT 3.37 10^6/ul (4.70-6.10); RED CELL DISTRIBUTION WIDTH 16.2 % (11.5-14.5); WHITE BLOOD COUNT 17.9 10^3/ul (4.8-10.8)
[2016-08-11] MEDS: PANTOPRAZOLE (EC) 40 MG TAB PO SCH (05:13)
[2016-08-11 05:21] LABS: POTASSIUM 5.5 mmol/L (3.5-5.1)
[2016-08-11 05:25] LABS: CALCIUM 7.3 mg/dl (8.4-10.2)
[2016-08-11 05:32] LABS: CREATININE 9.07 mg/dl (0.61-1.24)
[2016-08-11] MEDS: MEROPENEM 500 MG/100 ML (PMX) 100 ML IVPB SCH ×2 (09:16→20:44)
[2016-08-11] MEDS: ONDANSETRON 4 MG INJ IV PRN ×2 (09:20→22:43)
--- NOTE | 2016-08-11 09:31 | RADRPT ---
PROCEDURE: XR Chest AP portable CLINICAL INDICATION: Ventilator, pleural effusion TECHNIQUE: An AP portable radiograph of the chest was submitted. COMPARISON: 08/06/2016 FINDINGS: Support Hardware: The 2 right-sided thoracostomy tubes are stable in positioning. Cardiovascular: The pacemaker and dual leads are stable in positioning and again there is evidence o f a previous CABG. The cardiovascular silhouette is otherwise unremarkable except for atherosclerot ic calcification within the aorta.. Lung Chaudhary: There is persistent consolidation and volume loss to the right lower lung zone minimall y improved. Pleural Spaces: There is no longer right pleural fluid accumulation and no pneumothorax is evident. Osseous Structures: The osseous structures appear intact. Soft Tissues: The soft tissues appear unremarkable. IMPRESSION: 1. There is again evidence of a previous right thoracotomy with the thoracostomy tube stable in posi tioning. 2. No pleural fluid accumulation or pneumothorax is presently evident but there continues week cons olidation and volume loss to the right mid to lower lung zone. 3. Pacemaker and dual lead stable in positioning with evidence of a previous CABG. The cardiovascu lar silhouette is otherwise unremarkable except for atherosclerotic change involving the aorta. Physician Cecil Date Time Electronically viewed and signed by Physician Cecil on 08/11/2016 09:31 /
[2016-08-11] MEDS: SEVELAMER CARBONATE 0.8 GM PKT PO SCH ×3 (10:19→18:22)
[2016-08-11] MEDS: CALCIUM ACETATE 667 MG CAP PO SCH ×3 (10:19→18:21)
[2016-08-11] MEDS: INSULIN ASPART [NOVOLOG] 3 ML PEN SC SCH ×2 (10:20→12:45)
[2016-08-11] MEDS: METOPROLOL 25 MG TAB GTB SCH ×2 (10:20→20:44)
[2016-08-11] MEDS: PYRIDOXINE 50 MG TAB PO SCH (10:21)
[2016-08-11] MEDS: RIFAMPIN 300 MG CAP PO SCH (10:21)
[2016-08-11] MEDS: ISONIAZID 300 MG TAB PO SCH (10:21)
[2016-08-11] MEDS: FAMOTIDINE 20 MG TAB PO SCH (10:21)
[2016-08-11] MEDS: Insulin NOVOLOG SS MILD Algorithm (SS with meals and bedtime) SC SCH ×4 (10:22→20:46)
[2016-08-11] MEDS: SOD CHLORIDE 0.9% 1,000 ML IV SCH (10:22)
[2016-08-11] MEDS: CHOLECALCIFEROL 400 UNITS TAB PO SCH (10:22)
[2016-08-11] MEDS: FERROUS SULFATE (EC) 325 MG TAB PO SCH ×2 (10:22→20:44)
--- NOTE | 2016-08-11 10:31 | CONS ---
Date/Time of Note Date/Time of Note DATE: 08/11/16 TIME: 10:27 Assessment/Plan Assessment/Plan Chief Complaint/Hosp Course IMPRESSION: 1. Abnormal electrocardiogram, assess for acute coronary syndrome with recurrent chest pain now and recently negative stress test.-negative troponin x 3 2. History of a percutaneous transluminal coronary angioplasty and stent placement to left main and left anterior descending in 2014. 3. History of coronary artery bypass graft surgery. 4. Video assisted thoracoscopic surgery pleurodesis with leakage from the chest tube site.- now s/p repeat VATS/pleurodesis with CT with significant outpaut over the last 8 hours 5. Shortness of breath. 6. End-stage renal disease on hemodialysis. 7. Tuberculosis, on therapy. 8. Hypotension-now on levo 9. Diabetes mellitus. 10. Dyslipidemia. 11. Anemia-worsening s/p transfusion 12.Empyema/cavitary lesions by CT Recc: -Tele -Wean Levo as tolerated -resume Plavix/asa -HD for volume removal as tolerated only -continue TB treatment -Follow CT output closely with ongoing surgical eval -Continue abx's and f/u cx data -Check troponin q6 x 2 and serial ecg to assure no new acs Problems: Consultation Date/Type/Reason Admit Date/Time Jul 24, 2016 at 12:53 Initial Consult Date 07/24/16 Type of Consultation: Cardiology Reason for Consultation hypotension Referring Provider: EVA COX MD Exam/Review of Systems Vital Signs Vitals Vital Signs Date Time Temp Pulse Resp B/P Pulse Ox O2 Delivery O2 Flow Rate FiO2 08/11/16 08:30 97.0 93 24 84/62 98 Nasal Cannula 08/10/16 20:00 2.0 Intake and Output 08/10/16 08/10/16 08/11/16 15:00 23:00 07:00 Intake Total 981.22 ml 937.72 ml 492.88 ml Output Total 725 ml 255 ml 1000 ml Balance 256.22 ml 682.72 ml -507.12 ml Exam Review of Systems: CONSTITUTIONAL: No fevers, chills. PULMONARY: No sob CARDIOVASCULAR: Intermittent chest pain GASTROINTESTINAL: No nausea/vomiting. GENITOURINARY: No hematuria/dysuria. MUSCULOSKELETAL: No myagias/arthalgias. PSYCHIATRIC: The patient denies depression. NEUROLOGIC: lethargic Constitutional: alert Psych: no complaints Head: normocephalic ENMT: mucosa pink and moist Neck: supple Respiratory: diminished breath sounds Cardiovascular: regular rate and rhythm Gastrointestinal: non-tender, soft Musculoskeletal: muscle tone (normal) Extremities: edema (none) Neurological: lethargic, other Results Result Diagram: 08/11/16 0330 08/11/16 0330 Results 24 hrs Laboratory Tests Test 08/10/16 11:33 08/10/16 17:25 08/10/16 17:26 08/10/16 17:35 Bedside Glucose 197 155 Sodium Level 130 L Potassium Level 5.0 Chloride Level 96 L Carbon Dioxide Level 17 L Anion Gap 22 H Blood Urea Nitrogen 117 H Creatinine 8.99 H Glucose Level 155 Lactic Acid Level 1.0 Calcium Level 7.4 L Total Bilirubin 3.7 H Direct Bilirubin 2.60 H Indirect Bilirubin 1.1 Aspartate Amino Transf (AST/SGOT) 37 Alanine Aminotransferase (ALT/SGPT) 22 Alkaline Phosphatase 110 Total Protein 5.3 L Albumin 2.8 L Globulin 2.60 Albumin/Globulin Ratio 1.07 Triglycerides Level 98 Cholesterol Level < 50 L LDL Cholesterol, Calculated HDL Cholesterol 11 L Cholesterol/HDL Ratio White Blood Count 16.7 #H Red Blood Count 3.11 L Hemoglobin 10.1 L Hematocrit 29.5 L Mean Corpuscular Volume 94.9 Mean Corpuscular Hemoglobin 32.5 Mean Corpuscular Hemoglobin Concent 34.2 Red Cell Distribution Width 16.1 H Platelet Count 312 Mean Platelet Volume 10.0 Neutrophils % 83.9 H Lymphocytes % 3.5 L Monocytes % 10.2 Eosinophils % 1.3 Basophils % 0.2 Nucleated Red Blood Cells % 0.0 Neutrophils # 14.0 H Lymphocytes # 0.6 L Monocytes # 1.7 H Eosinophils # 0.2 Basophils # 0.0 Nucleated Red Blood Cells # 0.0 Test 08/10/16 20:05 08/10/16 23:15 08/11/16 01:21 08/11/16 03:30 Lactic Acid Level 1.0 1.6 Bedside Glucose 157 166 White Blood Count 17.9 H Red Blood Count 3.37 L Hemoglobin 10.9 L Hematocrit 32.2 L Mean Corpuscular Volume 95.5 Mean Corpuscular Hemoglobin 32.3 Mean Corpuscular Hemoglobin Concent 33.9 Red Cell Distribution Width 16.2 H Platelet Count 361 Mean Platelet Volume 10.1 Neutrophils % 89.1 H Lymphocytes % 1.7 L Monocytes % 7.6 Eosinophils % 0.4 Basophils % 0.2 Nucleated Red Blood Cells % 0.0 Neutrophils # 16.0 H Lymphocytes # 0.3 L Monocytes # 1.4 H Eosinophils # 0.1 Basophils # 0.0 Nucleated Red Blood Cells # 0.0 Sodium Level 130 L Potassium Level 5.5 H Chloride Level 97 Carbon Dioxide Level 14 L Anion Gap 25 H Blood Urea Nitrogen 124 H Creatinine 9.07 H Glucose Level 172 Calcium Level 7.3 L Random Vancomycin Level 11.4 Test 08/11/16 08:16 Bedside Glucose 187 Medications Medications Current Medications Aspirin (Halfprin) 81 mg DAILY PO Last administered on 07/26/16 08:39; Admin Dose 81 MG; Start 07/25/16 at 09:00; Status Future Hold Atorvastatin Calcium (Lipitor) 10 mg QHS PO Last administered on 08/10/16 20:52 ; Admin Dose 10 MG; Start 07/24/16 at 21:00 Cholecalciferol (Vitamin D) 400 units DAILY PO Last administered on 08/11/16 10:22; Admin Dose 400 UNITS; Start 07/25/16 at 09:00 Famotidine (Pepcid) 20 mg DAILY PO Last administered on 08/11/16 10:21; Admin Dose 20 MG; Start 07/25/16 at 09:00 Ferrous Sulfate (Ferrous Sulfate (Ec)) 325 mg BID PO Last administered on 10:22; Admin Dose 325 MG; Start 07/24/16 at 21:00 Acetaminophen/ Hydrocodone Bitart ([place] (5/325)) 1 tab Q4H PRN PO PAIN Last administered on 08/09/16 19:03; Admin Dose 1 TAB; Start 07/24/16 at 17:00 Isoniazid (Isoniazid) 300 mg DAILY PO Last administered on 08/11/16 10:21; Admin Dose 300 MG; Start 07/24/16 at 15:30 Pyridoxine HCl (Vitamin B6) 50 mg DAILY PO Last administered on 08/11/16 10:21 ; Admin Dose 50 MG; Start 07/25/16 at 09:00 Rifampin (Rifampin) 600 mg DAILY PO Last administered on 08/11/16 10:21; Admin Dose 600 MG; Start 07/25/16 at 09:00 Miscellaneous Information 1 ea NOTE XX ; Start 07/24/16 at 16:00 Glucose (Glutose) 15 gm Q15M PRN PO DECREASED GLUCOSE; Start 07/24/16 at 16:00 Glucose (Glutose) 22.5 gm Q15M PRN PO DECREASED GLUCOSE; Start 07/24/16 at 16: 00 Dextrose (D50w Syringe) 25 ml Q15M PRN IV DECREASED GLUCOSE; Start 07/24/16 at 16:00 Dextrose (D50w Syringe) 50 ml Q15M PRN IV DECREASED GLUCOSE; Start 07/24/16 at 16:00 Glucagon (Glucagen) 1 mg Q15M PRN IM DECREASED GLUCOSE; Start 07/24/16 at 16:00 Glucose (Glutose) 15 gm Q15M PRN BUCCAL DECREASED GLUCOSE; Start 07/24/16 at 16 :00 Ondansetron HCl (Zofran Inj) 4 mg Q4 PRN IV nausea Last administered on 09:20; Admin Dose 4 MG; Start 07/24/16 at 17:00 Metoclopramide HCl (Reglan) 5 mg Q4H PRN IV NAUSEA Last administered on 23:20; Admin Dose 5 MG; Start 07/24/16 at 22:30 Diagnostic Test (Pha) (Accu-Chek) 1 ea 02 XX Last administered on 08/11/16 01: 52; Admin Dose 1 EA; Start 07/26/16 at 12:00 Clonidine HCl (Catapres-Tts 2 Patch) 1 patch Q7D TRANSDERM Last administered on 08/03/16 06:32; Admin Dose 1 PATCH; Start 07/27/16 at 07:00; Status Future Hold Pantoprazole (Protonix Tab) 40 mg DAILY@06 PO Last administered on 08/11/16 05 :13; Admin Dose 40 MG; Start 07/28/16 at 06:00 Hydralazine HCl (Apresoline) 20 mg Q4 PRN IV ELEVATED BLOOD PRESSURE Last administered on 08/04/16 16:35; Admin Dose 20 MG; Start 07/28/16 at 02:00 Doxazosin Mesylate (Cardura) 2 mg HS PO Last administered on 08/05/16 21:57; Admin Dose 2 MG; Start 07/28/16 at 21:00; Status Future Hold Polyethylene Glycol (Miralax) 17 gm DAILY PRN GTB CONSTIPATION Last administered on 07/28/16 20:22; Admin Dose 17 GM; Start 07/28/16 at 19:30 Lorazepam (Ativan) 1 mg Q4H PRN IV anxiety Last administered on 07/30/16 20:48 ; Admin Dose 1 MG; Start 07/29/16 at 06:30 Ethambutol HCl (Myambutol) 900 mg TuThSa@20 PO Last administered on 08/09/16 21 :46; Admin Dose 900 MG; Start 07/31/16 at 20:00 Pyrazinamide (Pyrazinamide) 1,250 mg TuThSa@20 PO Last administered on 21:47; Admin Dose 1,250 MG; Start 07/31/16 at 20:00 Hydromorphone HCl (Dilaudid) 1 mg Q2H PRN IV pain Last administered on 21:20; Admin Dose 1 MG; Start 08/02/16 at 19:00 Hydralazine HCl (Apresoline) 25 mg Q8 PO Last administered on 08/06/16 05:44; Admin Dose 25 MG; Start 08/04/16 at 22:00; Status Future Hold Nifedipine (Procardia Xl) 30 mg BID PO ; Start 08/07/16 at 21:00; Status Future Hold Zolpidem Tartrate (Ambien) 5 mg HS PRN PO INSOMNIA Last administered on 22:32; Admin Dose 5 MG; Start 08/08/16 at 21:00 Benazepril HCl (Lotensin) 10 mg BID PO ; Start 08/09/16 at 09:00; Status Future Hold Metoprolol Tartrate 25 mg 25 mg BID GTB ; Start 08/09/16 at 21:00 Norepinephrine 16 mg/Dextrose 500 ml @ 1.87 mls/hr TITRATE IV Last administered on 08/11/16 06:05; Admin Dose 3.75 MLS/HR; Start 08/09/16 at 15:30 Meropenem 100 ml @ 200 mls/hr Q12 IVPB Last administered on 08/11/16 09:16; Admin Dose 200 MLS/HR; Start 08/09/16 at 21:00 Caspofungin 50 mg/ Sodium Chloride 250 ml @ 250 mls/hr Q24H IVPB Last administered on 08/10/16 17:36; Admin Dose 250 MLS/HR; Start 08/10/16 at 17:00 Sodium Chloride 1,000 ml @ 50 mls/hr Q20H IV Last administered on 08/11/16 10 :22; Admin Dose 50 MLS/HR; Start 08/09/16 at 17:30 Dopamine HCl/ Dextrose (D5W) 250 ml @ 1.71 mls/hr TITRATE IV Last administered on 08/10/16 15:22; Admin Dose 1.71 MLS/HR; Start 08/10/16 at 15:30 Acetaminophen 650 mg 650 mg Q6H PRN PO PAIN AND OR ELEVATED TEMP Last administered on 08/11/16 03:39; Admin Dose 650 MG; Start 08/10/16 at 16:30 Vancomycin HCl (Vancocin) 250 ml @ 125 mls/hr 11 IVPB ; Start 08/11/16 at 11:00 ; Stop 08/11/16 at 23:00 SHERITA SCOTT Aug 11, 2016 10:31
[2016-08-11] MEDS ORDERED: VANCOMYCIN 1 GM in NS 250 ML IVPB SCH (11:00)
--- NOTE | 2016-08-11 11:16 | CONS ---
Date/Time of Note Date/Time of Note DATE: 08/11/16 TIME: 11:13 Assessment/Plan Assessment/Plan Additional Assessment/Plan Chest x-ray was reviewed from today which is showing a right lower lobe atelectasis. Sternal wires are again identified, pacemaker in left chest wall. Assessment recommendations; 1. Patient admitted for TB empyema status post VATS procedure still having copious drainage through the chest tube. 2. CHF. 3. Chronic renal failure. On hemodialysis. 4. Diabetes and hypertension. 5. Prior history of coronary artery bypass surgery. 6. Chylous fluid seen in the Pleur-evac chamber. This also is consistent with TB empyema. 7. Hypotension requiring Levophed and dopamine drip. Continue current supportive care. Consultation Date/Type/Reason Admit Date/Time Jul 24, 2016 at 12:53 Initial Consult Date 07/25/16 Type of Consultation: Pulmonary/critical care Referring Provider: EVA COX MD 24 HR Interval Summary Free Text/Dictation Vision condition is tenuous at best. Still requiring pressor support. Still requiring Levophed and dopamine drips. Patient is having copious output through the chest tube on the right . side. General exam; elderly male, awake alert currently in no distress. Exam/Review of Systems Vital Signs Vitals Vital Signs Date Time Temp Pulse Resp B/P Pulse Ox O2 Delivery O2 Flow Rate FiO2 08/11/16 08:30 97.0 93 24 84/62 98 Nasal Cannula 08/10/16 20:00 2.0 Intake and Output 08/10/16 08/10/16 08/11/16 14:59 22:59 06:59 Intake Total 990.59 ml 931.43 ml 549.17 ml Output Total 725 ml 250 ml 755 ml Balance 265.59 ml 681.43 ml -205.83 ml Exam HEENT exam is; supple neck, positive JVD. No lymphadenopathy. Midline trachea. Pupils are midsize reactive to light. Patient has a few missing teeth. Chest examined; there is a sternal scar. There is a pacemaker in the left chest wall. Right-sided chest tube is in place. Decreased breath sounds right lower lobe. S1-S2 audible, no murmurs. Regular rhythm. Abdomen exam is; soft, nondistended. No organomegaly. Bowel sounds audible. Extremity exam is; no peripheral edema. Pulses 1+ bilaterally. [employer] examination; no focal deficit. Results Result Diagram: 08/11/16 0330 08/11/16 0330 Results 24 hrs Laboratory Tests Test 08/10/16 11:33 08/10/16 17:25 08/10/16 17:26 08/10/16 17:35 Bedside Glucose 197 155 Sodium Level 130 L Potassium Level 5.0 Chloride Level 96 L Carbon Dioxide Level 17 L Anion Gap 22 H Blood Urea Nitrogen 117 H Creatinine 8.99 H Glucose Level 155 Lactic Acid Level 1.0 Calcium Level 7.4 L Total Bilirubin 3.7 H Direct Bilirubin 2.60 H Indirect Bilirubin 1.1 Aspartate Amino Transf (AST/SGOT) 37 Alanine Aminotransferase (ALT/SGPT) 22 Alkaline Phosphatase 110 Total Protein 5.3 L Albumin 2.8 L Globulin 2.60 Albumin/Globulin Ratio 1.07 Triglycerides Level 98 Cholesterol Level < 50 L LDL Cholesterol, Calculated HDL Cholesterol 11 L Cholesterol/HDL Ratio White Blood Count 16.7 #H Red Blood Count 3.11 L Hemoglobin 10.1 L Hematocrit 29.5 L Mean Corpuscular Volume 94.9 Mean Corpuscular Hemoglobin 32.5 Mean Corpuscular Hemoglobin Concent 34.2 Red Cell Distribution Width 16.1 H Platelet Count 312 Mean Platelet Volume 10.0 Neutrophils % 83.9 H Lymphocytes % 3.5 L Monocytes % 10.2 Eosinophils % 1.3 Basophils % 0.2 Nucleated Red Blood Cells % 0.0 Neutrophils # 14.0 H Lymphocytes # 0.6 L Monocytes # 1.7 H Eosinophils # 0.2 Basophils # 0.0 Nucleated Red Blood Cells # 0.0 Test 08/10/16 20:05 08/10/16 23:15 08/11/16 01:21 08/11/16 03:30 Lactic Acid Level 1.0 1.6 Bedside Glucose 157 166 White Blood Count 17.9 H Red Blood Count 3.37 L Hemoglobin 10.9 L Hematocrit 32.2 L Mean Corpuscular Volume 95.5 Mean Corpuscular Hemoglobin 32.3 Mean Corpuscular Hemoglobin Concent 33.9 Red Cell Distribution Width 16.2 H Platelet Count 361 Mean Platelet Volume 10.1 Neutrophils % 89.1 H Lymphocytes % 1.7 L Monocytes % 7.6 Eosinophils % 0.4 Basophils % 0.2 Nucleated Red Blood Cells % 0.0 Neutrophils # 16.0 H Lymphocytes # 0.3 L Monocytes # 1.4 H Eosinophils # 0.1 Basophils # 0.0 Nucleated Red Blood Cells # 0.0 Sodium Level 130 L Potassium Level 5.5 H Chloride Level 97 Carbon Dioxide Level 14 L Anion Gap 25 H Blood Urea Nitrogen 124 H Creatinine 9.07 H Glucose Level 172 Calcium Level 7.3 L Random Vancomycin Level 11.4 Test 08/11/16 08:16 08/11/16 09:47 08/11/16 10:29 Bedside Glucose 187 184 Troponin I 0.017 Medications Medications Current Medications Aspirin (Halfprin) 81 mg DAILY PO Last administered on 07/26/16 08:39; Admin Dose 81 MG; Start 07/25/16 at 09:00; Status Future Hold Atorvastatin Calcium (Lipitor) 10 mg QHS PO Last administered on 08/10/16 20:52 ; Admin Dose 10 MG; Start 07/24/16 at 21:00 Cholecalciferol (Vitamin D) 400 units DAILY PO Last administered on 08/11/16 10:22; Admin Dose 400 UNITS; Start 07/25/16 at 09:00 Famotidine (Pepcid) 20 mg DAILY PO Last administered on 08/11/16 10:21; Admin Dose 20 MG; Start 07/25/16 at 09:00 Ferrous Sulfate (Ferrous Sulfate (Ec)) 325 mg BID PO Last administered on 10:22; Admin Dose 325 MG; Start 07/24/16 at 21:00 Acetaminophen/ Hydrocodone Bitart ([place] (5/325)) 1 tab Q4H PRN PO PAIN Last administered on 08/09/16 19:03; Admin Dose 1 TAB; Start 07/24/16 at 17:00 Isoniazid (Isoniazid) 300 mg DAILY PO Last administered on 08/11/16 10:21; Admin Dose 300 MG; Start 07/24/16 at 15:30 Pyridoxine HCl (Vitamin B6) 50 mg DAILY PO Last administered on 08/11/16 10:21 ; Admin Dose 50 MG; Start 07/25/16 at 09:00 Rifampin (Rifampin) 600 mg DAILY PO Last administered on 08/11/16 10:21; Admin Dose 600 MG; Start 07/25/16 at 09:00 Miscellaneous Information 1 ea NOTE XX ; Start 07/24/16 at 16:00 Glucose (Glutose) 15 gm Q15M PRN PO DECREASED GLUCOSE; Start 07/24/16 at 16:00 Glucose (Glutose) 22.5 gm Q15M PRN PO DECREASED GLUCOSE; Start 07/24/16 at 16: 00 Dextrose (D50w Syringe) 25 ml Q15M PRN IV DECREASED GLUCOSE; Start 07/24/16 at 16:00 Dextrose (D50w Syringe) 50 ml Q15M PRN IV DECREASED GLUCOSE; Start 07/24/16 at 16:00 Glucagon (Glucagen) 1 mg Q15M PRN IM DECREASED GLUCOSE; Start 07/24/16 at 16:00 Glucose (Glutose) 15 gm Q15M PRN BUCCAL DECREASED GLUCOSE; Start 07/24/16 at 16 :00 Ondansetron HCl (Zofran Inj) 4 mg Q4 PRN IV nausea Last administered on 09:20; Admin Dose 4 MG; Start 07/24/16 at 17:00 Metoclopramide HCl (Reglan) 5 mg Q4H PRN IV NAUSEA Last administered on 23:20; Admin Dose 5 MG; Start 07/24/16 at 22:30 Diagnostic Test (Pha) (Accu-Chek) 1 ea 02 XX Last administered on 08/11/16 01: 52; Admin Dose 1 EA; Start 07/26/16 at 12:00 Clonidine HCl (Catapres-Tts 2 Patch) 1 patch Q7D TRANSDERM Last administered on 08/03/16 06:32; Admin Dose 1 PATCH; Start 07/27/16 at 07:00; Status Future Hold Pantoprazole (Protonix Tab) 40 mg DAILY@06 PO Last administered on 08/11/16 05 :13; Admin Dose 40 MG; Start 07/28/16 at 06:00 Hydralazine HCl (Apresoline) 20 mg Q4 PRN IV ELEVATED BLOOD PRESSURE Last administered on 08/04/16 16:35; Admin Dose 20 MG; Start 07/28/16 at 02:00 Doxazosin Mesylate (Cardura) 2 mg HS PO Last administered on 08/05/16 21:57; Admin Dose 2 MG; Start 07/28/16 at 21:00; Status Future Hold Polyethylene Glycol (Miralax) 17 gm DAILY PRN GTB CONSTIPATION Last administered on 07/28/16 20:22; Admin Dose 17 GM; Start 07/28/16 at 19:30 Lorazepam (Ativan) 1 mg Q4H PRN IV anxiety Last administered on 07/30/16 20:48 ; Admin Dose 1 MG; Start 07/29/16 at 06:30 Ethambutol HCl (Myambutol) 900 mg TuThSa@20 PO Last administered on 08/09/16 21 :46; Admin Dose 900 MG; Start 07/31/16 at 20:00 Pyrazinamide (Pyrazinamide) 1,250 mg TuThSa@20 PO Last administered on 21:47; Admin Dose 1,250 MG; Start 07/31/16 at 20:00 Hydromorphone HCl (Dilaudid) 1 mg Q2H PRN IV pain Last administered on 21:20; Admin Dose 1 MG; Start 08/02/16 at 19:00 Hydralazine HCl (Apresoline) 25 mg Q8 PO Last administered on 08/06/16 05:44; Admin Dose 25 MG; Start 08/04/16 at 22:00; Status Future Hold Nifedipine (Procardia Xl) 30 mg BID PO ; Start 08/07/16 at 21:00; Status Future Hold Zolpidem Tartrate (Ambien) 5 mg HS PRN PO INSOMNIA Last administered on 22:32; Admin Dose 5 MG; Start 08/08/16 at 21:00 Benazepril HCl (Lotensin) 10 mg BID PO ; Start 08/09/16 at 09:00; Status Future Hold Metoprolol Tartrate 25 mg 25 mg BID GTB ; Start 08/09/16 at 21:00 Norepinephrine 16 mg/Dextrose 500 ml @ 1.87 mls/hr TITRATE IV Last administered on 08/11/16 06:05; Admin Dose 3.75 MLS/HR; Start 08/09/16 at 15:30 Meropenem 100 ml @ 200 mls/hr Q12 IVPB Last administered on 08/11/16 09:16; Admin Dose 200 MLS/HR; Start 08/09/16 at 21:00 Caspofungin 50 mg/ Sodium Chloride 250 ml @ 250 mls/hr Q24H IVPB Last administered on 08/10/16 17:36; Admin Dose 250 MLS/HR; Start 08/10/16 at 17:00 Sodium Chloride 1,000 ml @ 50 mls/hr Q20H IV Last administered on 08/11/16 10 :22; Admin Dose 50 MLS/HR; Start 08/09/16 at 17:30 Dopamine HCl/ Dextrose (D5W) 250 ml @ 1.71 mls/hr TITRATE IV Last administered on 08/10/16 15:22; Admin Dose 1.71 MLS/HR; Start 08/10/16 at 15:30 Acetaminophen 650 mg 650 mg Q6H PRN PO PAIN AND OR ELEVATED TEMP Last administered on 08/11/16 03:39; Admin Dose 650 MG; Start 08/10/16 at 16:30 Vancomycin HCl (Vancocin) 250 ml @ 125 mls/hr 11 IVPB Last administered on 10:29; Admin Dose 125 MLS/HR; Start 08/11/16 at 11:00; Stop 08/11/16 at 23:00 BOONE POLO Aug 11, 2016 11:16
[2016-08-11] MEDS: METOCLOPRAMIDE 10 MG INJ IV PRN ×2 (12:18→22:43)
[2016-08-11] MEDS ORDERED: HEPARIN 1000 UNITS/ML 10 ML INJ ONE (14:09)
[2016-08-11] MEDS: CLOPIDOGREL 75 MG TAB PO SCH (14:29)
[2016-08-11] MEDS: ASPIRIN (EC) 81 MG TAB PO SCH (14:29)
[2016-08-11] MEDS: DOPamine 1,600 MG in DEXTROSE 5% 210 ML IV SCH (15:07)
--- NOTE | 2016-08-11 16:52 | PN ---
Date/Time of Note Date/Time of Note DATE: 08/11/16 TIME: 16:43 Assessment/Plan VTE Prophylaxis VTE Prophylaxis Intervention: SCD's Lines/Catheters IV [facility]ter [facility] Urinary Cath still in place: No Assessment/Plan Assessment/Plan - Recurrent right pleural effusion consistent with empyema, cavitary lesions, status post right thoracotomy and pulmonary decortication on 08/04. -Hemoptysis, resolved. Dr. Dale is following in pulmonology consultation. Dr. Caitlin balderas is following an infection disease consultation. -Right former chest tube site bleeding, resolved. Dr. Martinez is following in thoracic surgery consultation. -Anemia of acute blood loss, patient had bleeding from the right femoral catheter as well as chest tube site on admission, status post blood transfusion , continue to monitor hemoglobin and hematocrit. Dr. Mratinez is following in hematology consultation. 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 - End-stage renal disease, continue hemodialysis. Dr. Saunders is following in nephrology consultation. - Diabetes mellitus type 2, pre-meal NovoLog and NovoLog per mild algorithm sliding scale. - Hypertension. Dr. De Santiago is following and cardiology consultation. Continue benazepril metoprolol hydralazine Procardia - Coronary artery disease, status post coronary artery bypass graft, s/p percutaneous transluminal coronary angioplasty and stent placement to left main and left anterior descending in 2014. - Permanent pacemaker. No acute issues. - Dyslipidemia. Continue Lipitor. 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 Further recommendations based on clinical course. Plan of care discussed with Dr. Price. Further treatment depends upon patient's clinical course. Total critical care time spent 30 mins. Plan of care dw Dr Price/staff Subjective 24 Hr Interval Summary Constitutional: requiring IVF, requiring O2 Eyes: no complaints ENT: no complaints Respiratory: pain, shortness of breath Cardiovascular: no complaints Gastrointestinal: no complaints Genitourinary: no complaints Musculoskeletal: no complaints Skin: no complaints Neurologic: no complaints Endocrine: no complaints Lymphatic: no complaints Psychological: nl mood/affect Immunologic: no complaints Exam/Review of Systems Vital Signs Vitals Vital Signs Date Time Temp Pulse Resp B/P Pulse Ox O2 Delivery O2 Flow Rate FiO2 08/11/16 16:00 108 08/11/16 15:30 24 60/35 99 Nasal Cannula 2.0 08/11/16 12:00 96.9 Intake and Output 08/10/16 08/10/16 08/11/16 15:00 23:00 07:00 Intake Total 981.22 ml 937.72 ml 492.88 ml Output Total 725 ml 255 ml 1000 ml Balance 256.22 ml 682.72 ml -507.12 ml Exam Constitutional: alert Eyes: nl conjunctiva ENMT: nl external ears & nose Neck: non-tender Respiratory: diminished breath sounds Cardiovascular: nl pulses Gastrointestinal: soft Musculoskeletal: nl extremities to inspection Extremities: normal pulses Neurological: nl mental status, nl speech Skin: nl turgor Lymph: nontender Results Result Diagram: 08/11/16 0330 08/11/16 0330 Results 24 hrs Laboratory Tests Test 08/10/16 17:25 08/10/16 17:26 08/10/16 17:35 08/10/16 20:05 Sodium Level 130 L Potassium Level 5.0 Chloride Level 96 L Carbon Dioxide Level 17 L Anion Gap 22 H Blood Urea Nitrogen 117 H Creatinine 8.99 H Glucose Level 155 Lactic Acid Level 1.0 1.0 Calcium Level 7.4 L Total Bilirubin 3.7 H Direct Bilirubin 2.60 H Indirect Bilirubin 1.1 Aspartate Amino Transf (AST/SGOT) 37 Alanine Aminotransferase (ALT/SGPT) 22 Alkaline Phosphatase 110 Total Protein 5.3 L Albumin 2.8 L Globulin 2.60 Albumin/Globulin Ratio 1.07 Triglycerides Level 98 Cholesterol Level < 50 L LDL Cholesterol, Calculated HDL Cholesterol 11 L Cholesterol/HDL Ratio Bedside Glucose 155 White Blood Count 16.7 #H Red Blood Count 3.11 L Hemoglobin 10.1 L Hematocrit 29.5 L Mean Corpuscular Volume 94.9 Mean Corpuscular Hemoglobin 32.5 Mean Corpuscular Hemoglobin Concent 34.2 Red Cell Distribution Width 16.1 H Platelet Count 312 Mean Platelet Volume 10.0 Neutrophils % 83.9 H Lymphocytes % 3.5 L Monocytes % 10.2 Eosinophils % 1.3 Basophils % 0.2 Nucleated Red Blood Cells % 0.0 Neutrophils # 14.0 H Lymphocytes # 0.6 L Monocytes # 1.7 H Eosinophils # 0.2 Basophils # 0.0 Nucleated Red Blood Cells # 0.0 Test 08/10/16 23:15 08/11/16 01:21 08/11/16 03:30 08/11/16 08:16 Bedside Glucose 157 166 187 White Blood Count 17.9 H Red Blood Count 3.37 L Hemoglobin 10.9 L Hematocrit 32.2 L Mean Corpuscular Volume 95.5 Mean Corpuscular Hemoglobin 32.3 Mean Corpuscular Hemoglobin Concent 33.9 Red Cell Distribution Width 16.2 H Platelet Count 361 Mean Platelet Volume 10.1 Neutrophils % 89.1 H Lymphocytes % 1.7 L Monocytes % 7.6 Eosinophils % 0.4 Basophils % 0.2 Nucleated Red Blood Cells % 0.0 Neutrophils # 16.0 H Lymphocytes # 0.3 L Monocytes # 1.4 H Eosinophils # 0.1 Basophils # 0.0 Nucleated Red Blood Cells # 0.0 Sodium Level 130 L Potassium Level 5.5 H Chloride Level 97 Carbon Dioxide Level 14 L Anion Gap 25 H Blood Urea Nitrogen 124 H Creatinine 9.07 H Glucose Level 172 Lactic Acid Level 1.6 Calcium Level 7.3 L Random Vancomycin Level 11.4 Test 08/11/16 09:47 08/11/16 10:29 08/11/16 12:21 Troponin I 0.017 Bedside Glucose 184 196 Medications Medications Current Medications Aspirin (Halfprin) 81 mg DAILY PO Last administered on 08/11/16 14:29; Admin Dose 81 MG; Start 07/25/16 at 09:00; Status Future hold Atorvastatin Calcium (Lipitor) 10 mg QHS PO Last administered on 08/10/16 20:52 ; Admin Dose 10 MG; Start 07/24/16 at 21:00 Cholecalciferol (Vitamin D) 400 units DAILY PO Last administered on 08/11/16 10:22; Admin Dose 400 UNITS; Start 07/25/16 at 09:00 Famotidine (Pepcid) 20 mg DAILY PO Last administered on 08/11/16 10:21; Admin Dose 20 MG; Start 07/25/16 at 09:00 Ferrous Sulfate (Ferrous Sulfate (Ec)) 325 mg BID PO Last administered on 10:22; Admin Dose 325 MG; Start 07/24/16 at 21:00 Acetaminophen/ Hydrocodone Bitart ([place] (5/325)) 1 tab Q4H PRN PO PAIN Last administered on 08/09/16 19:03; Admin Dose 1 TAB; Start 07/24/16 at 17:00 Isoniazid (Isoniazid) 300 mg DAILY PO Last administered on 08/11/16 10:21; Admin Dose 300 MG; Start 07/24/16 at 15:30 Pyridoxine HCl (Vitamin B6) 50 mg DAILY PO Last administered on 08/11/16 10:21 ; Admin Dose 50 MG; Start 07/25/16 at 09:00 Rifampin (Rifampin) 600 mg DAILY PO Last administered on 08/11/16 10:21; Admin Dose 600 MG; Start 07/25/16 at 09:00 Miscellaneous Information 1 ea NOTE XX ; Start 07/24/16 at 16:00 Glucose (Glutose) 15 gm Q15M PRN PO DECREASED GLUCOSE; Start 07/24/16 at 16:00 Glucose (Glutose) 22.5 gm Q15M PRN PO DECREASED GLUCOSE; Start 07/24/16 at 16: 00 Dextrose (D50w Syringe) 25 ml Q15M PRN IV DECREASED GLUCOSE; Start 07/24/16 at 16:00 Dextrose (D50w Syringe) 50 ml Q15M PRN IV DECREASED GLUCOSE; Start 07/24/16 at 16:00 Glucagon (Glucagen) 1 mg Q15M PRN IM DECREASED GLUCOSE; Start 07/24/16 at 16:00 Glucose (Glutose) 15 gm Q15M PRN BUCCAL DECREASED GLUCOSE; Start 07/24/16 at 16 :00 Ondansetron HCl (Zofran Inj) 4 mg Q4 PRN IV nausea Last administered on 09:20; Admin Dose 4 MG; Start 07/24/16 at 17:00 Metoclopramide HCl (Reglan) 5 mg Q4H PRN IV NAUSEA Last administered on 12:18; Admin Dose 5 MG; Start 07/24/16 at 22:30 Diagnostic Test (Pha) (Accu-Chek) 1 ea 02 XX Last administered on 08/11/16 01: 52; Admin Dose 1 EA; Start 07/26/16 at 12:00 Clonidine HCl (Catapres-Tts 2 Patch) 1 patch Q7D TRANSDERM Last administered on 08/03/16 06:32; Admin Dose 1 PATCH; Start 07/27/16 at 07:00; Status Future Hold Pantoprazole (Protonix Tab) 40 mg DAILY@06 PO Last administered on 08/11/16 05 :13; Admin Dose 40 MG; Start 07/28/16 at 06:00 Hydralazine HCl (Apresoline) 20 mg Q4 PRN IV ELEVATED BLOOD PRESSURE Last administered on 08/04/16 16:35; Admin Dose 20 MG; Start 07/28/16 at 02:00 Doxazosin Mesylate (Cardura) 2 mg HS PO Last administered on 08/05/16 21:57; Admin Dose 2 MG; Start 07/28/16 at 21:00; Status Future Hold Polyethylene Glycol (Miralax) 17 gm DAILY PRN GTB CONSTIPATION Last administered on 07/28/16 20:22; Admin Dose 17 GM; Start 07/28/16 at 19:30 Lorazepam (Ativan) 1 mg Q4H PRN IV anxiety Last administered on 07/30/16 20:48 ; Admin Dose 1 MG; Start 07/29/16 at 06:30 Ethambutol HCl (Myambutol) 900 mg TuThSa@20 PO Last administered on 08/09/16 21 :46; Admin Dose 900 MG; Start 07/31/16 at 20:00 Pyrazinamide (Pyrazinamide) 1,250 mg TuThSa@20 PO Last administered on 21:47; Admin Dose 1,250 MG; Start 07/31/16 at 20:00 Hydromorphone HCl (Dilaudid) 1 mg Q2H PRN IV pain Last administered on 21:20; Admin Dose 1 MG; Start 08/02/16 at 19:00 Hydralazine HCl (Apresoline) 25 mg Q8 PO Last administered on 08/06/16 05:44; Admin Dose 25 MG; Start 08/04/16 at 22:00; Status Future Hold Nifedipine (Procardia Xl) 30 mg BID PO ; Start 08/07/16 at 21:00; Status Future Hold Zolpidem Tartrate (Ambien) 5 mg HS PRN PO INSOMNIA Last administered on 22:32; Admin Dose 5 MG; Start 08/08/16 at 21:00 Benazepril HCl (Lotensin) 10 mg BID PO ; Start 08/09/16 at 09:00; Status Future Hold Metoprolol Tartrate 25 mg 25 mg BID GTB ; Start 08/09/16 at 21:00 Norepinephrine 16 mg/Dextrose 500 ml @ 1.87 mls/hr TITRATE IV Last administered on 08/11/16 06:05; Admin Dose 3.75 MLS/HR; Start 08/09/16 at 15:30 Meropenem 100 ml @ 200 mls/hr Q12 IVPB Last administered on 08/11/16 09:16; Admin Dose 200 MLS/HR; Start 08/09/16 at 21:00 Caspofungin 50 mg/ Sodium Chloride 250 ml @ 250 mls/hr Q24H IVPB Last administered on 08/10/16 17:36; Admin Dose 250 MLS/HR; Start 08/10/16 at 17:00 Sodium Chloride 1,000 ml @ 50 mls/hr Q20H IV Last administered on 08/11/16 10 :22; Admin Dose 50 MLS/HR; Start 08/09/16 at 17:30 Dopamine HCl/ Dextrose (D5W) 250 ml @ 1.71 mls/hr TITRATE IV Last administered on 08/11/16 15:07; Admin Dose 11.43 MLS/HR; Start 08/10/16 at 15:30 Acetaminophen 650 mg 650 mg Q6H PRN PO PAIN AND OR ELEVATED TEMP Last administered on 08/11/16 03:39; Admin Dose 650 MG; Start 08/10/16 at 16:30 Vancomycin HCl (Vancocin) 250 ml @ 125 mls/hr 11 IVPB Last administered on 10:29; Admin Dose 125 MLS/HR; Start 08/11/16 at 11:00; Stop 08/11/16 at 23:00 Clopidogrel Bisulfate (plaVIX) 75 mg DAILY PO Last administered on 08/11/16 14 :29; Admin Dose 75 MG; Start 08/11/16 at 12:00 PATRICIA RUEDA Aug 11, 2016 16:52
[2016-08-11] MEDS: CASPOFUNGIN 50 MG in SOD CHLORIDE 0.9% 250 ML IVPB SCH (17:52)
--- NOTE | 2016-08-11 18:50 | OPR ---
DATE OF OPERATION: PREOPERATIVE DIAGNOSIS: Renal failure. POSTOPERATIVE DIAGNOSIS: Renal failure. OPERATION PERFORMED: Right femoral hemodialysis catheter placement. SURGEON: Phil Martinez MD ANESTHESIA: Local. CONSENT: Risks, benefits, complications, alternative therapies explained to the patient and the [facility] demario, consent obtained. OPERATIVE TECHNIQUE: The patient was placed in supine position, prepped and draped in usual sterile fashion. Lidocaine 1% was used throughout the operation for local anesthesia. Access was gained i n the right common femoral vein. Guidewire was advanced through without any difficulty. Subcutaneo us tissues were dilated and 20 cm dialysis catheter advanced over guidewire, secured to skin using s ilk suture. Both ports of the catheter were aspirated and injected using heparinized saline solutio n. The patient tolerated procedure well. Dictated By: PHIL SOTO/MANJIT Conf#: [id number] DID#: [id number]
--- NOTE | 2016-08-11 20:31 | CONS ---
Date/Time of Note Date/Time of Note DATE: 08/11/16 TIME: 20:28 Assessment/Plan Assessment/Plan Chief Complaint/Hosp Course - possible tubercular empyema: R sided complex loculated air containing empyemas , visceral and parietal pleural calcifications. - a 35 mm lesion with possible cavitation in the anterior inferior RUL, possible recurrent tuberculosis - high risk for TB: history (originally from [facility], spends one month of each year in [facility], last in 09/2015), medical history (DM, ESRD), laboratory findings (positive quantiferon TB gold, granulomatous inflammation with focal necrosis on Bx of pleura) - AFB smear was negative x3, also M. tuberculosis DNA probe to the 1st sputum sample was undetectable in early 07/2016 - s/p first R VATS, total pulmonary decortication, R pleurodesis on 06/30/2016. Biopsy was negative for fungal stain and AFB stain (micro lab and pathology department), as well as malignancy. It showed granulomatous inflammation with focal necrosis and extensive hyalinization. - s/p second R VATS, decortication thoracotomy on 08/04/2016. Per Dr. Martinez, the tissue did not appear empyema. It was largely blood clots and tissue debris. Fluid was sent for cultures, but not tissue. Path showed blood and polarizable foreign material, no malignancy - sputum collected on 08/02/2016 was negative for mycobacterium tuberculosis DNA probe - h/o recurrent pleural effusion requiring thoracentesis approximately once a year, last performed in 04/2016 prior to this admission - positive quantiferon TB gold status of unknown duration. Per Pt, his past PPD was done in 2013, and was negative. - Our infection control room operator Lindsey contacted the TB control unit at [facility]: we learned on 07/11/2016 that Pt has h/o mycobacterial tuberculosis infection in 1997 and was treated between 1997 and 1998. - DM - Hgb A1c 5.2% 06/17/16 - ESRD on HD - CAD s/p CABG in 2010 and cardiac stent in 2013 - HIV screen negative in 07/2016 tested at [facility] - Sepsis vs SIRS - Hypotension requiring Levophed and Dopamine Recommendations - f/u han cx (blood cx negative to date; prelim sputum cx growing rik albicans), procalc, [id number], cdiff - continue empiric abx: vanco/jae/micafungin - pending: mycobacterium tuberculosis DNA probe to fluid in GUIDO bulb was sent on 08/06/2016 - continue renally dosed RIPE plus vitamin B6 supplement (07/12/2016-) - check LFTs' weekly - consider repeat CT chest - Management d/w pt and pt's family at bedside and [employer] - Above d/w Dr. Verduzco - Critical care time spent: 35 minutes Problems: Consultation Date/Type/Reason Admit Date/Time Jul 24, 2016 at 12:53 Initial Consult Date 07/25/16 Type of Consultation: Infectious Disease Referring Provider: EVA COX MD 24 HR Interval Summary Free Text/Dictation Still on Dopamine and Levophed was restarted; Blood pressure dropped during HD per RN Kristina. Nods yes to pain r/t chest tube. Nods no to SOB, n/v/d. Family reports poor appetite. Exam/Review of Systems Vital Signs Vitals Vital Signs Date Time Temp Pulse Resp B/P Pulse Ox O2 Delivery O2 Flow Rate FiO2 08/11/16 18:27 100 2.0 08/11/16 18:00 116 27 117/69 Nasal Cannula 08/11/16 16:00 97.0 Intake and Output 08/10/16 08/10/16 08/11/16 15:00 23:00 07:00 Intake Total 981.22 ml 937.72 ml 492.88 ml Output Total 725 ml 255 ml 1000 ml Balance 256.22 ml 682.72 ml -507.12 ml Exam Constitutional: alert, frail Head: atraumatic, normocephalic Neck: jvd, supple Respiratory: diminished breath sounds, other (Right sided chest tube intact with serous drainage) Gastrointestinal: non-tender, soft Genitourinary - Male: other (bilateral groin HD catheter intact) Musculoskeletal: nl extremities to inspection Extremities: No clubbing, No cyanosis, No edema Results Result Diagram: 08/11/1632908/11/16329 Results 24 hrs Laboratory Tests Test 08/10/16 23:15 08/11/16 01:21 08/11/16 03:30 08/11/16 08:16 Bedside Glucose 157 166 187 White Blood Count 17.9 H Red Blood Count 3.37 L Hemoglobin 10.9 L Hematocrit 32.2 L Mean Corpuscular Volume 95.5 Mean Corpuscular Hemoglobin 32.3 Mean Corpuscular Hemoglobin Concent 33.9 Red Cell Distribution Width 16.2 H Platelet Count 361 Mean Platelet Volume 10.1 Neutrophils % 89.1 H Lymphocytes % 1.7 L Monocytes % 7.6 Eosinophils % 0.4 Basophils % 0.2 Nucleated Red Blood Cells % 0.0 Neutrophils # 16.0 H Lymphocytes # 0.3 L Monocytes # 1.4 H Eosinophils # 0.1 Basophils # 0.0 Nucleated Red Blood Cells # 0.0 Sodium Level 130 L Potassium Level 5.5 H Chloride Level 97 Carbon Dioxide Level 14 L Anion Gap 25 H Blood Urea Nitrogen 124 H Creatinine 9.07 H Glucose Level 172 Lactic Acid Level 1.6 Calcium Level 7.3 L Random Vancomycin Level 11.4 Test 08/11/16 09:47 08/11/16 10:29 08/11/16 12:21 08/11/16 16:28 Troponin I 0.017 0.020 Bedside Glucose 184 196 Test 08/11/16 16:52 Bedside Glucose 176 Medications Medications Current Medications Aspirin (Halfprin) 81 mg DAILY PO Last administered on 08/11/16 14:29; Admin Dose 81 MG; Start 07/25/16 at 09:00; Status Future hold Atorvastatin Calcium (Lipitor) 10 mg QHS PO Last administered on 08/10/16 20:52 ; Admin Dose 10 MG; Start 07/24/16 at 21:00 Cholecalciferol (Vitamin D) 400 units DAILY PO Last administered on 08/11/16 10:22; Admin Dose 400 UNITS; Start 07/25/16 at 09:00 Famotidine (Pepcid) 20 mg DAILY PO Last administered on 08/11/16 10:21; Admin Dose 20 MG; Start 07/25/16 at 09:00 Ferrous Sulfate (Ferrous Sulfate (Ec)) 325 mg BID PO Last administered on 10:22; Admin Dose 325 MG; Start 07/24/16 at 21:00 Acetaminophen/ Hydrocodone Bitart ([place] (5/325)) 1 tab Q4H PRN PO PAIN Last administered on 08/09/16 19:03; Admin Dose 1 TAB; Start 07/24/16 at 17:00 Isoniazid (Isoniazid) 300 mg DAILY PO Last administered on 08/11/16 10:21; Admin Dose 300 MG; Start 07/24/16 at 15:30 Pyridoxine HCl (Vitamin B6) 50 mg DAILY PO Last administered on 08/11/16 10:21 ; Admin Dose 50 MG; Start 07/25/16 at 09:00 Rifampin (Rifampin) 600 mg DAILY PO Last administered on 08/11/16 10:21; Admin Dose 600 MG; Start 07/25/16 at 09:00 Miscellaneous Information 1 ea NOTE XX ; Start 07/24/16 at 16:00 Glucose (Glutose) 15 gm Q15M PRN PO DECREASED GLUCOSE; Start 07/24/16 at 16:00 Glucose (Glutose) 22.5 gm Q15M PRN PO DECREASED GLUCOSE; Start 07/24/16 at 16: 00 Dextrose (D50w Syringe) 25 ml Q15M PRN IV DECREASED GLUCOSE; Start 07/24/16 at 16:00 Dextrose (D50w Syringe) 50 ml Q15M PRN IV DECREASED GLUCOSE; Start 07/24/16 at 16:00 Glucagon (Glucagen) 1 mg Q15M PRN IM DECREASED GLUCOSE; Start 07/24/16 at 16:00 Glucose (Glutose) 15 gm Q15M PRN BUCCAL DECREASED GLUCOSE; Start 07/24/16 at 16 :00 Ondansetron HCl (Zofran Inj) 4 mg Q4 PRN IV nausea Last administered on 09:20; Admin Dose 4 MG; Start 07/24/16 at 17:00 Metoclopramide HCl (Reglan) 5 mg Q4H PRN IV NAUSEA Last administered on 12:18; Admin Dose 5 MG; Start 07/24/16 at 22:30 Diagnostic Test (Pha) (Accu-Chek) 1 ea 02 XX Last administered on 08/11/16 01: 52; Admin Dose 1 EA; Start 07/26/16 at 12:00 Clonidine HCl (Catapres-Tts 2 Patch) 1 patch Q7D TRANSDERM Last administered on 08/03/16 06:32; Admin Dose 1 PATCH; Start 07/27/16 at 07:00; Status Future Hold Pantoprazole (Protonix Tab) 40 mg DAILY@06 PO Last administered on 08/11/16 05 :13; Admin Dose 40 MG; Start 07/28/16 at 06:00 Hydralazine HCl (Apresoline) 20 mg Q4 PRN IV ELEVATED BLOOD PRESSURE Last administered on 08/04/16 16:35; Admin Dose 20 MG; Start 07/28/16 at 02:00 Doxazosin Mesylate (Cardura) 2 mg HS PO Last administered on 08/05/16 21:57; Admin Dose 2 MG; Start 07/28/16 at 21:00; Status Future Hold Polyethylene Glycol (Miralax) 17 gm DAILY PRN GTB CONSTIPATION Last administered on 07/28/16 20:22; Admin Dose 17 GM; Start 07/28/16 at 19:30 Lorazepam (Ativan) 1 mg Q4H PRN IV anxiety Last administered on 07/30/16 20:48 ; Admin Dose 1 MG; Start 07/29/16 at 06:30 Ethambutol HCl (Myambutol) 900 mg TuThSa@20 PO Last administered on 08/09/16 21 :46; Admin Dose 900 MG; Start 07/31/16 at 20:00 Pyrazinamide (Pyrazinamide) 1,250 mg TuThSa@20 PO Last administered on 21:47; Admin Dose 1,250 MG; Start 07/31/16 at 20:00 Hydromorphone HCl (Dilaudid) 1 mg Q2H PRN IV pain Last administered on 21:20; Admin Dose 1 MG; Start 08/02/16 at 19:00 Hydralazine HCl (Apresoline) 25 mg Q8 PO Last administered on 08/06/16 05:44; Admin Dose 25 MG; Start 08/04/16 at 22:00; Status Future Hold Nifedipine (Procardia Xl) 30 mg BID PO ; Start 08/07/16 at 21:00; Status Future Hold Zolpidem Tartrate (Ambien) 5 mg HS PRN PO INSOMNIA Last administered on 22:32; Admin Dose 5 MG; Start 08/08/16 at 21:00 Benazepril HCl (Lotensin) 10 mg BID PO ; Start 08/09/16 at 09:00; Status Future Hold Metoprolol Tartrate 25 mg 25 mg BID GTB ; Start 08/09/16 at 21:00 Norepinephrine 16 mg/Dextrose 500 ml @ 1.87 mls/hr TITRATE IV Last administered on 08/11/16 06:05; Admin Dose 3.75 MLS/HR; Start 08/09/16 at 15:30 Meropenem 100 ml @ 200 mls/hr Q12 IVPB Last administered on 08/11/16 09:16; Admin Dose 200 MLS/HR; Start 08/09/16 at 21:00 Caspofungin 50 mg/ Sodium Chloride 250 ml @ 250 mls/hr Q24H IVPB Last administered on 08/11/16 17:52; Admin Dose 250 MLS/HR; Start 08/10/16 at 17:00 Sodium Chloride 1,000 ml @ 50 mls/hr Q20H IV Last administered on 08/11/16 10 :22; Admin Dose 50 MLS/HR; Start 08/09/16 at 17:30 Dopamine HCl/ Dextrose (D5W) 250 ml @ 1.71 mls/hr TITRATE IV Last administered on 08/11/16 15:07; Admin Dose 11.43 MLS/HR; Start 08/10/16 at 15:30 Acetaminophen 650 mg 650 mg Q6H PRN PO PAIN AND OR ELEVATED TEMP Last administered on 08/11/16 18:22; Admin Dose 650 MG; Start 08/10/16 at 16:30 Vancomycin HCl (Vancocin) 250 ml @ 125 mls/hr 11 IVPB Last administered on 10:29; Admin Dose 125 MLS/HR; Start 08/11/16 at 11:00; Stop 08/11/16 at 23:00 Clopidogrel Bisulfate (plaVIX) 75 mg DAILY PO Last administered on 08/11/16 14 :29; Admin Dose 75 MG; Start 08/11/16 at 12:00 Procedures Procedures CXR 08/11/16: 1. There is again evidence of a previous right thoracotomy with the thoracostomy tube stable in positioning. 2. No pleural fluid accumulation or pneumothorax is presently evident but there continues week consolidation and volume loss to the right mid to lower lung zone. 3. Pacemaker and dual lead stable in positioning with evidence of a previous CABG. The cardiovascular silhouette is otherwise unremarkable except for atherosclerotic change involving the aorta. NORI JORGENSEN NP Aug 11, 2016 20:31
[2016-08-11] MEDS: ATORVASTATIN 10 MG TAB PO SCH (20:44)
--- NOTE | 2016-08-11 22:31 | CONS ---
Date/Time of Note Date/Time of Note DATE: 08/11/16 TIME: 22:29 Assessment/Plan Assessment/Plan Chief Complaint/Hosp Course IMPRESSION: 1. Recurrent pleural effusions. s/p vats 2. Lung infiltrate./cavitary lesion 3. chronic lung disease. 4. Hypertension.now low 5. Diabetes mellitus. 6. End-stage renal disease. 7. anemia. 8. cad. 9. hypotension 10. ashd 11. PLEURAL EFFUSIN 12. The patient on anti-tuberculosis treatment. 13. 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 14 hyperkalemia PLAN per id and surg ctube care hd when bp stable iv fluid Problems: Consultation Date/Type/Reason Admit Date/Time Jul 24, 2016 at 12:53 Initial Consult Date 07/25/16 Type of Consultation: renal Referring Provider: EVA COX MD 24 HR Interval Summary Constitutional: requiring IVF, No diaphoresis Exam/Review of Systems Vital Signs Vitals Vital Signs Date Time Temp Pulse Resp B/P Pulse Ox O2 Delivery O2 Flow Rate FiO2 08/11/16 21:45 96 17 111/66 100 08/11/16 21:30 Nasal Cannula 2.0 08/11/16 19:00 98.0 Intake and Output 08/10/16 08/10/16 08/11/16 15:00 23:00 07:00 Intake Total 981.22 ml 937.72 ml 492.88 ml Output Total 725 ml 255 ml 1000 ml Balance 256.22 ml 682.72 ml -507.12 ml Exam Neck: supple Respiratory: diminished breath sounds Cardiovascular: regular rate and rhythm Gastrointestinal: soft Musculoskeletal: nl extremities to inspection Extremities: edema (tr) Results Result Diagram: 08/11/16 0330 08/11/16 0330 Results 24 hrs Laboratory Tests Test 08/10/16 23:15 08/11/16 01:21 08/11/16 03:30 08/11/16 08:16 Bedside Glucose 157 166 187 White Blood Count 17.9 H Red Blood Count 3.37 L Hemoglobin 10.9 L Hematocrit 32.2 L Mean Corpuscular Volume 95.5 Mean Corpuscular Hemoglobin 32.3 Mean Corpuscular Hemoglobin Concent 33.9 Red Cell Distribution Width 16.2 H Platelet Count 361 Mean Platelet Volume 10.1 Neutrophils % 89.1 H Lymphocytes % 1.7 L Monocytes % 7.6 Eosinophils % 0.4 Basophils % 0.2 Nucleated Red Blood Cells % 0.0 Neutrophils # 16.0 H Lymphocytes # 0.3 L Monocytes # 1.4 H Eosinophils # 0.1 Basophils # 0.0 Nucleated Red Blood Cells # 0.0 Sodium Level 130 L Potassium Level 5.5 H Chloride Level 97 Carbon Dioxide Level 14 L Anion Gap 25 H Blood Urea Nitrogen 124 H Creatinine 9.07 H Glucose Level 172 Lactic Acid Level 1.6 Calcium Level 7.3 L Random Vancomycin Level 11.4 Test 08/11/16 09:47 08/11/16 10:29 08/11/16 12:21 08/11/16 16:28 Troponin I 0.017 0.020 Bedside Glucose 184 196 Test 08/11/16 16:52 08/11/16 20:45 Bedside Glucose 176 178 Medications Medications Current Medications Aspirin (Halfprin) 81 mg DAILY PO Last administered on 08/11/16 14:29; Admin Dose 81 MG; Start 07/25/16 at 09:00; Status Future hold Atorvastatin Calcium (Lipitor) 10 mg QHS PO Last administered on 08/11/16 20: 44; Admin Dose 10 MG; Start 07/24/16 at 21:00 Cholecalciferol (Vitamin D) 400 units DAILY PO Last administered on 08/11/16 10:22; Admin Dose 400 UNITS; Start 07/25/16 at 09:00 Famotidine (Pepcid) 20 mg DAILY PO Last administered on 08/11/16 10:21; Admin Dose 20 MG; Start 07/25/16 at 09:00 Ferrous Sulfate (Ferrous Sulfate (Ec)) 325 mg BID PO Last administered on 20:44; Admin Dose 325 MG; Start 07/24/16 at 21:00 Acetaminophen/ Hydrocodone Bitart ([place] (5/325)) 1 tab Q4H PRN PO PAIN Last administered on 08/09/16 19:03; Admin Dose 1 TAB; Start 07/24/16 at 17:00 Isoniazid (Isoniazid) 300 mg DAILY PO Last administered on 08/11/16 10:21; Admin Dose 300 MG; Start 07/24/16 at 15:30 Pyridoxine HCl (Vitamin B6) 50 mg DAILY PO Last administered on 08/11/16 10:21 ; Admin Dose 50 MG; Start 07/25/16 at 09:00 Rifampin (Rifampin) 600 mg DAILY PO Last administered on 08/11/16 10:21; Admin Dose 600 MG; Start 07/25/16 at 09:00 Miscellaneous Information 1 ea NOTE XX ; Start 07/24/16 at 16:00 Glucose (Glutose) 15 gm Q15M PRN PO DECREASED GLUCOSE; Start 07/24/16 at 16:00 Glucose (Glutose) 22.5 gm Q15M PRN PO DECREASED GLUCOSE; Start 07/24/16 at 16: 00 Dextrose (D50w Syringe) 25 ml Q15M PRN IV DECREASED GLUCOSE; Start 07/24/16 at 16:00 Dextrose (D50w Syringe) 50 ml Q15M PRN IV DECREASED GLUCOSE; Start 07/24/16 at 16:00 Glucagon (Glucagen) 1 mg Q15M PRN IM DECREASED GLUCOSE; Start 07/24/16 at 16:00 Glucose (Glutose) 15 gm Q15M PRN BUCCAL DECREASED GLUCOSE; Start 07/24/16 at 16 :00 Ondansetron HCl (Zofran Inj) 4 mg Q4 PRN IV nausea Last administered on 09:20; Admin Dose 4 MG; Start 07/24/16 at 17:00 Metoclopramide HCl (Reglan) 5 mg Q4H PRN IV NAUSEA Last administered on 12:18; Admin Dose 5 MG; Start 07/24/16 at 22:30 Diagnostic Test (Pha) (Accu-Chek) 1 ea 02 XX Last administered on 08/11/16 01: 52; Admin Dose 1 EA; Start 07/26/16 at 12:00 Clonidine HCl (Catapres-Tts 2 Patch) 1 patch Q7D TRANSDERM Last administered on 08/03/16 06:32; Admin Dose 1 PATCH; Start 07/27/16 at 07:00; Status Future Hold Pantoprazole (Protonix Tab) 40 mg DAILY@06 PO Last administered on 08/11/16 05 :13; Admin Dose 40 MG; Start 07/28/16 at 06:00 Hydralazine HCl (Apresoline) 20 mg Q4 PRN IV ELEVATED BLOOD PRESSURE Last administered on 08/04/16 16:35; Admin Dose 20 MG; Start 07/28/16 at 02:00 Doxazosin Mesylate (Cardura) 2 mg HS PO Last administered on 08/05/16 21:57; Admin Dose 2 MG; Start 07/28/16 at 21:00; Status Future Hold Polyethylene Glycol (Miralax) 17 gm DAILY PRN GTB CONSTIPATION Last administered on 07/28/16 20:22; Admin Dose 17 GM; Start 07/28/16 at 19:30 Lorazepam (Ativan) 1 mg Q4H PRN IV anxiety Last administered on 07/30/16 20:48 ; Admin Dose 1 MG; Start 07/29/16 at 06:30 Ethambutol HCl (Myambutol) 900 mg TuThSa@20 PO Last administered on 08/09/16 21 :46; Admin Dose 900 MG; Start 07/31/16 at 20:00 Pyrazinamide (Pyrazinamide) 1,250 mg TuThSa@20 PO Last administered on 21:47; Admin Dose 1,250 MG; Start 07/31/16 at 20:00 Hydromorphone HCl (Dilaudid) 1 mg Q2H PRN IV pain Last administered on 21:20; Admin Dose 1 MG; Start 08/02/16 at 19:00 Hydralazine HCl (Apresoline) 25 mg Q8 PO Last administered on 08/06/16 05:44; Admin Dose 25 MG; Start 08/04/16 at 22:00; Status Future Hold Nifedipine (Procardia Xl) 30 mg BID PO ; Start 08/07/16 at 21:00; Status Future Hold Zolpidem Tartrate (Ambien) 5 mg HS PRN PO INSOMNIA Last administered on 22:32; Admin Dose 5 MG; Start 08/08/16 at 21:00 Benazepril HCl (Lotensin) 10 mg BID PO ; Start 08/09/16 at 09:00; Status Future Hold Metoprolol Tartrate 25 mg 25 mg BID GTB ; Start 08/09/16 at 21:00 Norepinephrine 16 mg/Dextrose 500 ml @ 1.87 mls/hr TITRATE IV Last administered on 08/11/16 06:05; Admin Dose 3.75 MLS/HR; Start 08/09/16 at 15:30 Meropenem 100 ml @ 200 mls/hr Q12 IVPB Last administered on 08/11/16 20:44; Admin Dose 200 MLS/HR; Start 08/09/16 at 21:00 Caspofungin 50 mg/ Sodium Chloride 250 ml @ 250 mls/hr Q24H IVPB Last administered on 08/11/16 17:52; Admin Dose 250 MLS/HR; Start 08/10/16 at 17:00 Sodium Chloride 1,000 ml @ 50 mls/hr Q20H IV Last administered on 08/11/16 10 :22; Admin Dose 50 MLS/HR; Start 08/09/16 at 17:30 Dopamine HCl/ Dextrose (D5W) 250 ml @ 1.71 mls/hr TITRATE IV Last administered on 08/11/16 15:07; Admin Dose 11.43 MLS/HR; Start 08/10/16 at 15:30 Acetaminophen 650 mg 650 mg Q6H PRN PO PAIN AND OR ELEVATED TEMP Last administered on 08/11/16 18:22; Admin Dose 650 MG; Start 08/10/16 at 16:30 Vancomycin HCl (Vancocin) 250 ml @ 125 mls/hr 11 IVPB Last administered on 10:29; Admin Dose 125 MLS/HR; Start 08/11/16 at 11:00; Stop 08/11/16 at 23:00 Clopidogrel Bisulfate (plaVIX) 75 mg DAILY PO Last administered on 08/11/16 14 :29; Admin Dose 75 MG; Start 08/11/16 at 12:00 PAOLA MOODY MD Aug 11, 2016 22:30
[2016-08-12] VITALS (95 sets, daily range): BP systolic 72–153; BP diastolic 36–119; PULSE 73–112; RESP 12–28
[2016-08-12] MEDS: ZOLPIDEM 5 MG TAB PO PRN (00:11)
[2016-08-12] MEDS: ACETAMINOPHEN 325 MG TAB PO PRN (00:54)
[2016-08-12] MEDS: ACCUCHECK 2 AM XX SCH (02:00)
[2016-08-12] MEDS: SOD CHLORIDE 0.9% 1,000 ML IV SCH (02:05)
[2016-08-12 04:38] LABS: ADD SCAN DIFF NO
[2016-08-12 04:44] LABS: ABNORMAL IP MESSAGE 1; BASOPHILS % 0.1 % (0.0-2.0); EOSINOPHILS % 0.2 % (0.0-7.0); HEMATOCRIT 31.9 % (42.0-52.0); LYMPHOCYTES # 0.3 10^3/ul (0.8-2.9); LYMPHOCYTES % 2.5 % (15.0-51.0); MEAN CORPUSCULAR HGB CONC 34.5 g/dl (32.0-37.0); MEAN CORPUSCULAR VOLUME 92.7 fl (82.0-101.0); MEAN PLATELET VOLUME 9.8 fl (7.4-10.4); MONOCYTE # 0.8 10^3/ul (0.3-0.9); MONOCYTES % 5.9 % (0.0-11.0); NEUTROPHIL # 11.5 10^3/ul (1.6-7.5); NEUTROPHILS % 90.2 % (39.0-77.0); PLATELET COUNT 317 10^3/UL (140-415); RED BLOOD COUNT 3.44 10^6/ul (4.70-6.10); RED CELL DISTRIBUTION WIDTH 16.3 % (11.5-14.5); WHITE BLOOD COUNT 12.7 10^3/ul (4.8-10.8)
[2016-08-12 05:10] LABS: ALBUMIN 2.2 g/dl (3.3-4.9); ALBUMIN/GLOBULIN RATIO 0.84; BILIRUBIN,DIRECT 3.8 mg/dl (0.00-0.20); BILIRUBIN,TOTAL 4.8 mg/dl (0.2-1.3); CREATININE 6.1 mg/dl (0.61-1.24); POTASSIUM 4.7 mmol/L (3.5-5.1); TOTAL PROTEIN 4.8 g/dl (6.1-8.1)
[2016-08-12] MEDS ORDERED: SODIUM BICARBONATE (IV ADD) 50 MEQ in DEXTROSE 5%-0.45% NACL 1,000 ML IV SCH (06:30)
[2016-08-12] MEDS ORDERED: ALBUMIN HUMAN 5% IV ONE (06:30)
[2016-08-12] MEDS ORDERED: SOD CHLORIDE 0.9% 500 ML IV ONE (06:30)
[2016-08-12] MEDS: PANTOPRAZOLE (EC) 40 MG TAB PO SCH (06:35)
[2016-08-12] MEDS: ALBUMIN HUMAN 25% 100 ML IV SCH ×3 (06:47→23:48)
[2016-08-12] MEDS ORDERED: HYDROCORTISONE 100 MG INJ IV ONE (07:00)
[2016-08-12] MEDS: SEVELAMER CARBONATE 0.8 GM PKT PO SCH ×3 (07:35→17:35)
[2016-08-12] MEDS: CALCIUM ACETATE 667 MG CAP PO SCH ×3 (07:35→17:35)
[2016-08-12] MEDS: INSULIN ASPART [NOVOLOG] 3 ML PEN SC SCH ×5 (07:35→20:17)
[2016-08-12] MEDS: METOPROLOL 25 MG TAB GTB SCH ×2 (09:00→20:22)
[2016-08-12] MEDS: MEROPENEM 500 MG/100 ML (PMX) 100 ML IVPB SCH (09:02)
[2016-08-12] MEDS: Insulin NOVOLOG SS MILD Algorithm (SS with meals and bedtime) SC SCH ×2 (09:05→12:08)
--- NOTE | 2016-08-12 09:06 | CONS ---
Date/Time of Note Date/Time of Note DATE: 08/12/16 TIME: 09:04 Assessment/Plan Assessment/Plan Additional Assessment/Plan Assessment recommendations; next 1. 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 Status post VATS procedure. Still having significant discharge from the right chest tube. 2. 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 3. Chronic renal failure, on hemodialysis. 4. History of diabetes and hypertension. 5. Hypotension, requiring Levophed. Continue current supportive care. Consultation Date/Type/Reason Admit Date/Time Jul 24, 2016 at 12:53 Initial Consult Date 07/25/16 Type of Consultation: Pulmonary/critical care Referring Provider: EVA COX MD 24 HR Interval Summary Free Text/Dictation Patient condition remains critical. Still requiring Levophed for blood pressure maintenance. Patient however remains completely awake alert denies any shortness of breath. Still having significant discharge to the right side chest tube. General exam; elderly male, currently in no distress awake and alert. Exam/Review of Systems Vital Signs Vitals Vital Signs Date Time Temp Pulse Resp B/P Pulse Ox O2 Delivery O2 Flow Rate FiO2 08/12/16 07:00 112 26 109/56 Nasal Cannula 2.0 08/12/16 04:00 97.9 08/12/16 02:15 100 Intake and Output 08/11/16 08/11/16 08/12/16 15:00 23:00 07:00 Intake Total 1174.29 ml 2755.61 ml 1179.3 ml Output Total 2435 ml 1210 ml Balance 1174.29 ml 320.61 ml -30.7 ml Exam HEENT exam; supple neck, positive JVD. No lymphadenopathy. Midline trachea. No thyromegaly. Patient has multiple missing teeth. Pupils are midsize and reactive to light. Chest exam; diminished breath sounds right lower lobe otherwise clear to auscultation. S1-S2 audible, no murmurs. Regular rhythm. There is a well- healed sternal scar. Abdomen examination; soft, nontender. No organomegaly. Bowel sounds audible. Extremity exam is; trace peripheral edema. Pulses 1+ bilaterally. SHELLFISH GROWER examination; no focal deficit. Results Result Diagram: 08/12/16 0400 08/12/16 0400 Results 24 hrs Laboratory Tests Test 08/11/16 09:47 08/11/16 10:29 08/11/16 12:21 08/11/16 16:28 Troponin I 0.017 0.020 Bedside Glucose 184 196 Test 08/11/16 16:52 08/11/16 20:45 08/12/16 04:00 08/12/16 09:01 Bedside Glucose 176 178 192 White Blood Count 12.7 #H Red Blood Count 3.44 L Hemoglobin 11.0 L Hematocrit 31.9 L Mean Corpuscular Volume 92.7 Mean Corpuscular Hemoglobin 32.0 Mean Corpuscular Hemoglobin Concent 34.5 Red Cell Distribution Width 16.3 H Platelet Count 317 Mean Platelet Volume 9.8 Neutrophils % 90.2 H Lymphocytes % 2.5 L Monocytes % 5.9 Eosinophils % 0.2 Basophils % 0.1 Nucleated Red Blood Cells % 0.0 Neutrophils # 11.5 H Lymphocytes # 0.3 L Monocytes # 0.8 Eosinophils # 0.0 Basophils # 0.0 Nucleated Red Blood Cells # 0.0 Sodium Level 131 L Potassium Level 4.7 Chloride Level 101 Carbon Dioxide Level 18 L Anion Gap 17 #H Blood Urea Nitrogen 72 #H Creatinine 6.10 #H Glucose Level 205 Calcium Level 7.0 L Total Bilirubin 4.8 H Direct Bilirubin 3.80 #H Indirect Bilirubin 1.0 Aspartate Amino Transf (AST/SGOT) 70 #H Alanine Aminotransferase (ALT/SGPT) 23 Alkaline Phosphatase 131 H Total Protein 4.8 L Albumin 2.2 L Globulin 2.60 Albumin/Globulin Ratio 0.84 Medications Medications Current Medications Aspirin (Halfprin) 81 mg DAILY PO Last administered on 08/11/16 14:29; Admin Dose 81 MG; Start 07/25/16 at 09:00; Status Future hold Atorvastatin Calcium (Lipitor) 10 mg QHS PO Last administered on 08/11/16 20: 44; Admin Dose 10 MG; Start 07/24/16 at 21:00 Cholecalciferol (Vitamin D) 400 units DAILY PO Last administered on 08/11/16 10:22; Admin Dose 400 UNITS; Start 07/25/16 at 09:00 Famotidine (Pepcid) 20 mg DAILY PO Last administered on 08/11/16 10:21; Admin Dose 20 MG; Start 07/25/16 at 09:00 Ferrous Sulfate (Ferrous Sulfate (Ec)) 325 mg BID PO Last administered on 20:44; Admin Dose 325 MG; Start 07/24/16 at 21:00 Acetaminophen/ Hydrocodone Bitart ([place] (5/325)) 1 tab Q4H PRN PO PAIN Last administered on 08/09/16 19:03; Admin Dose 1 TAB; Start 07/24/16 at 17:00 Isoniazid (Isoniazid) 300 mg DAILY PO Last administered on 08/11/16 10:21; Admin Dose 300 MG; Start 07/24/16 at 15:30 Pyridoxine HCl (Vitamin B6) 50 mg DAILY PO Last administered on 08/11/16 10:21 ; Admin Dose 50 MG; Start 07/25/16 at 09:00 Rifampin (Rifampin) 600 mg DAILY PO Last administered on 08/11/16 10:21; Admin Dose 600 MG; Start 07/25/16 at 09:00 Miscellaneous Information 1 ea NOTE XX ; Start 07/24/16 at 16:00 Glucose (Glutose) 15 gm Q15M PRN PO DECREASED GLUCOSE; Start 07/24/16 at 16:00 Glucose (Glutose) 22.5 gm Q15M PRN PO DECREASED GLUCOSE; Start 07/24/16 at 16: 00 Dextrose (D50w Syringe) 25 ml Q15M PRN IV DECREASED GLUCOSE; Start 07/24/16 at 16:00 Dextrose (D50w Syringe) 50 ml Q15M PRN IV DECREASED GLUCOSE; Start 07/24/16 at 16:00 Glucagon (Glucagen) 1 mg Q15M PRN IM DECREASED GLUCOSE; Start 07/24/16 at 16:00 Glucose (Glutose) 15 gm Q15M PRN BUCCAL DECREASED GLUCOSE; Start 07/24/16 at 16 :00 Ondansetron HCl (Zofran Inj) 4 mg Q4 PRN IV nausea Last administered on 22:43; Admin Dose 4 MG; Start 07/24/16 at 17:00 Metoclopramide HCl (Reglan) 5 mg Q4H PRN IV NAUSEA Last administered on 22:43; Admin Dose 5 MG; Start 07/24/16 at 22:30 Diagnostic Test (Pha) (Accu-Chek) 1 ea 02 XX Last administered on 08/11/16 01: 52; Admin Dose 1 EA; Start 07/26/16 at 12:00 Clonidine HCl (Catapres-Tts 2 Patch) 1 patch Q7D TRANSDERM Last administered on 08/03/16 06:32; Admin Dose 1 PATCH; Start 07/27/16 at 07:00; Status Future Hold Pantoprazole (Protonix Tab) 40 mg DAILY@06 PO Last administered on 08/12/16 06 :35; Admin Dose 40 MG; Start 07/28/16 at 06:00 Hydralazine HCl (Apresoline) 20 mg Q4 PRN IV ELEVATED BLOOD PRESSURE Last administered on 08/04/16 16:35; Admin Dose 20 MG; Start 07/28/16 at 02:00 Doxazosin Mesylate (Cardura) 2 mg HS PO Last administered on 08/05/16 21:57; Admin Dose 2 MG; Start 07/28/16 at 21:00; Status Future Hold Polyethylene Glycol (Miralax) 17 gm DAILY PRN GTB CONSTIPATION Last administered on 07/28/16 20:22; Admin Dose 17 GM; Start 07/28/16 at 19:30 Lorazepam (Ativan) 1 mg Q4H PRN IV anxiety Last administered on 07/30/16 20:48 ; Admin Dose 1 MG; Start 07/29/16 at 06:30 Ethambutol HCl (Myambutol) 900 mg TuThSa@20 PO Last administered on 08/09/16 21 :46; Admin Dose 900 MG; Start 07/31/16 at 20:00 Pyrazinamide (Pyrazinamide) 1,250 mg TuThSa@20 PO Last administered on 21:47; Admin Dose 1,250 MG; Start 07/31/16 at 20:00 Hydromorphone HCl (Dilaudid) 1 mg Q2H PRN IV pain Last administered on 21:20; Admin Dose 1 MG; Start 08/02/16 at 19:00 Hydralazine HCl (Apresoline) 25 mg Q8 PO Last administered on 08/06/16 05:44; Admin Dose 25 MG; Start 08/04/16 at 22:00; Status Future Hold Nifedipine (Procardia Xl) 30 mg BID PO ; Start 08/07/16 at 21:00; Status Future Hold Zolpidem Tartrate (Ambien) 5 mg HS PRN PO INSOMNIA Last administered on 00:11; Admin Dose 5 MG; Start 08/08/16 at 21:00 Benazepril HCl (Lotensin) 10 mg BID PO ; Start 08/09/16 at 09:00; Status Future Hold Metoprolol Tartrate 25 mg 25 mg BID GTB ; Start 08/09/16 at 21:00 Norepinephrine 16 mg/Dextrose 500 ml @ 1.87 mls/hr TITRATE IV Last administered on 08/11/16 06:05; Admin Dose 3.75 MLS/HR; Start 08/09/16 at 15:30 Meropenem 100 ml @ 200 mls/hr Q12 IVPB Last administered on 08/12/16 09:02; Admin Dose 200 MLS/HR; Start 08/09/16 at 21:00 Caspofungin 50 mg/ Sodium Chloride 250 ml @ 250 mls/hr Q24H IVPB Last administered on 08/11/16 17:52; Admin Dose 250 MLS/HR; Start 08/10/16 at 17:00 Sodium Chloride 1,000 ml @ 50 mls/hr Q20H IV Last administered on 08/12/16 02 :05; Admin Dose 50 MLS/HR; Start 08/09/16 at 17:30 Dopamine HCl/ Dextrose (D5W) 250 ml @ 1.71 mls/hr TITRATE IV Last administered on 08/11/16 15:07; Admin Dose 11.43 MLS/HR; Start 08/10/16 at 15:30 Acetaminophen (Tylenol Tab) 650 mg Q6H PRN PO PAIN AND OR ELEVATED TEMP Last administered on 08/12/16 00:54; Admin Dose 650 MG; Start 08/10/16 at 16:30 Clopidogrel Bisulfate 75 mg 75 mg DAILY PO Last administered on 08/11/16 14:29 ; Admin Dose 75 MG; Start 08/11/16 at 12:00 Phenylephrine HCl 160 mg/Dextrose 500 ml @ 18.75 mls/ hr TITRATE IV ; Start 03/20 at 06:00 Sodium Bicarbonate 50 meq/Dextrose/ Sodium Chloride 1,050 ml @ 125 mls/hr Q8H24M IV ; Start 08/12/16 at 07:00 Albumin Human (Albumin Human 25%) 100 ml @ 100 mls/hr Q8H IV Last administered on 08/12/16 06:47; Admin Dose 100 MLS/HR; Start 08/12/16 at 07:00 ; Stop 08/12/16 at 23:59 BOONE POLO Aug 12, 2016 09:06
[2016-08-12] MEDS: ISONIAZID 300 MG TAB PO SCH (09:09)
[2016-08-12] MEDS: RIFAMPIN 300 MG CAP PO SCH (09:10)
[2016-08-12] MEDS: CLOPIDOGREL 75 MG TAB PO SCH (09:10)
[2016-08-12] MEDS: CHOLECALCIFEROL 400 UNITS TAB PO SCH (09:10)
[2016-08-12] MEDS: ASPIRIN (EC) 81 MG TAB PO SCH (09:10)
[2016-08-12] MEDS: FAMOTIDINE 20 MG TAB PO SCH (09:11)
[2016-08-12] MEDS: FERROUS SULFATE (EC) 325 MG TAB PO SCH ×2 (09:11→20:04)
[2016-08-12] MEDS: PYRIDOXINE 50 MG TAB PO SCH (09:11)
[2016-08-12] MEDS: SODIUM BICARBONATE (IV ADD) 50 MEQ in DEXTROSE 5%-0.45% NACL 1,000 ML IV SCH ×2 (09:55→17:47)
--- NOTE | 2016-08-12 13:28 | PN ---
Date/Time of Note Date/Time of Note DATE: 08/12/16 TIME: 13:27 Assessment/Plan VTE Prophylaxis VTE Prophylaxis Intervention: other Lines/Catheters IV [facility] Urinary Cath still in place: No Assessment/Plan Chief Complaint/Hosp Course IMPRESSION: Right chest tube site bleeding, which has now subsided completely. Hgb stable Would monitor the hemoglobin levels and stop the antiplatelet. SP VATS Decortication CT output [address] sxn may need pleurex cath Problems: Subjective 24 Hr Interval Summary Gastrointestinal: no complaints Genitourinary: no complaints Musculoskeletal: no complaints Skin: no complaints Exam/Review of Systems Vital Signs Vitals Vital Signs Date Time Temp Pulse Resp B/P Pulse Ox O2 Delivery O2 Flow Rate FiO2 08/12/16 12:00 86 08/12/16 11:15 25 94/36 Room Air 08/12/16 11:00 99 08/12/16 08:00 97.5 08/12/16 07:45 2.0 Intake and Output 08/11/16 08/11/16 08/12/16 15:00 23:00 07:00 Intake Total 1174.29 ml 2755.61 ml 1179.3 ml Output Total 2435 ml 1210 ml Balance 1174.29 ml 320.61 ml -30.7 ml Exam Neck: non-tender, supple Respiratory: clear to auscultation, normal air movement Cardiovascular: nl pulses, regular rate and rhythm Results Result Diagram: 08/12/16 0400 08/12/16 0400 Results 24 hrs Laboratory Tests Test 08/11/16 16:28 08/11/16 16:52 08/11/16 20:45 08/12/16 04:00 Troponin I 0.020 Bedside Glucose 176 178 White Blood Count 12.7 #H Red Blood Count 3.44 L Hemoglobin 11.0 L Hematocrit 31.9 L Mean Corpuscular Volume 92.7 Mean Corpuscular Hemoglobin 32.0 Mean Corpuscular Hemoglobin Concent 34.5 Red Cell Distribution Width 16.3 H Platelet Count 317 Mean Platelet Volume 9.8 Neutrophils % 90.2 H Lymphocytes % 2.5 L Monocytes % 5.9 Eosinophils % 0.2 Basophils % 0.1 Nucleated Red Blood Cells % 0.0 Neutrophils # 11.5 H Lymphocytes # 0.3 L Monocytes # 0.8 Eosinophils # 0.0 Basophils # 0.0 Nucleated Red Blood Cells # 0.0 Sodium Level 131 L Potassium Level 4.7 Chloride Level 101 Carbon Dioxide Level 18 L Anion Gap 17 #H Blood Urea Nitrogen 72 #H Creatinine 6.10 #H Glucose Level 205 Calcium Level 7.0 L Total Bilirubin 4.8 H Direct Bilirubin 3.80 #H Indirect Bilirubin 1.0 Aspartate Amino Transf (AST/SGOT) 70 #H Alanine Aminotransferase (ALT/SGPT) 23 Alkaline Phosphatase 131 H Total Protein 4.8 L Albumin 2.2 L Globulin 2.60 Albumin/Globulin Ratio 0.84 Test 08/12/16 09:01 08/12/16 12:02 Bedside Glucose 192 265 H Medications Medications Current Medications Aspirin (Halfprin) 81 mg DAILY PO Last administered on 08/12/16 09:10; Admin Dose 81 MG; Start 07/25/16 at 09:00; Status Future hold Atorvastatin Calcium (Lipitor) 10 mg QHS PO Last administered on 08/11/16 20: 44; Admin Dose 10 MG; Start 07/24/16 at 21:00 Cholecalciferol (Vitamin D) 400 units DAILY PO Last administered on 08/12/16 09:10; Admin Dose 400 UNITS; Start 07/25/16 at 09:00 Famotidine (Pepcid) 20 mg DAILY PO Last administered on 08/12/16 09:11; Admin Dose 20 MG; Start 07/25/16 at 09:00 Ferrous Sulfate (Ferrous Sulfate (Ec)) 325 mg BID PO Last administered on 09:11; Admin Dose 325 MG; Start 07/24/16 at 21:00 Acetaminophen/ Hydrocodone Bitart ([place] (5/325)) 1 tab Q4H PRN PO PAIN Last administered on 08/09/16 19:03; Admin Dose 1 TAB; Start 07/24/16 at 17:00 Isoniazid (Isoniazid) 300 mg DAILY PO Last administered on 08/12/16 09:09; Admin Dose 300 MG; Start 07/24/16 at 15:30 Pyridoxine HCl (Vitamin B6) 50 mg DAILY PO Last administered on 08/12/16 09:11 ; Admin Dose 50 MG; Start 07/25/16 at 09:00 Rifampin (Rifampin) 600 mg DAILY PO Last administered on 08/12/16 09:10; Admin Dose 600 MG; Start 07/25/16 at 09:00 Miscellaneous Information 1 ea NOTE XX ; Start 07/24/16 at 16:00 Glucose (Glutose) 15 gm Q15M PRN PO DECREASED GLUCOSE; Start 07/24/16 at 16:00 Glucose (Glutose) 22.5 gm Q15M PRN PO DECREASED GLUCOSE; Start 07/24/16 at 16: 00 Dextrose (D50w Syringe) 25 ml Q15M PRN IV DECREASED GLUCOSE; Start 07/24/16 at 16:00 Dextrose (D50w Syringe) 50 ml Q15M PRN IV DECREASED GLUCOSE; Start 07/24/16 at 16:00 Glucagon (Glucagen) 1 mg Q15M PRN IM DECREASED GLUCOSE; Start 07/24/16 at 16:00 Glucose (Glutose) 15 gm Q15M PRN BUCCAL DECREASED GLUCOSE; Start 07/24/16 at 16 :00 Ondansetron HCl (Zofran Inj) 4 mg Q4 PRN IV nausea Last administered on 22:43; Admin Dose 4 MG; Start 07/24/16 at 17:00 Metoclopramide HCl (Reglan) 5 mg Q4H PRN IV NAUSEA Last administered on 22:43; Admin Dose 5 MG; Start 07/24/16 at 22:30 Diagnostic Test (Pha) (Accu-Chek) 1 ea 02 XX Last administered on 08/11/16 01: 52; Admin Dose 1 EA; Start 07/26/16 at 12:00 Clonidine HCl (Catapres-Tts 2 Patch) 1 patch Q7D TRANSDERM Last administered on 08/03/16 06:32; Admin Dose 1 PATCH; Start 07/27/16 at 07:00; Status Future Hold Pantoprazole (Protonix Tab) 40 mg DAILY@06 PO Last administered on 08/12/16 06 :35; Admin Dose 40 MG; Start 07/28/16 at 06:00 Hydralazine HCl (Apresoline) 20 mg Q4 PRN IV ELEVATED BLOOD PRESSURE Last administered on 08/04/16 16:35; Admin Dose 20 MG; Start 07/28/16 at 02:00 Doxazosin Mesylate (Cardura) 2 mg HS PO Last administered on 08/05/16 21:57; Admin Dose 2 MG; Start 07/28/16 at 21:00; Status Future Hold Polyethylene Glycol (Miralax) 17 gm DAILY PRN GTB CONSTIPATION Last administered on 07/28/16 20:22; Admin Dose 17 GM; Start 07/28/16 at 19:30 Lorazepam (Ativan) 1 mg Q4H PRN IV anxiety Last administered on 07/30/16 20:48 ; Admin Dose 1 MG; Start 07/29/16 at 06:30 Ethambutol HCl (Myambutol) 900 mg TuThSa@20 PO Last administered on 08/09/16 21 :46; Admin Dose 900 MG; Start 07/31/16 at 20:00 Pyrazinamide (Pyrazinamide) 1,250 mg TuThSa@20 PO Last administered on 21:47; Admin Dose 1,250 MG; Start 07/31/16 at 20:00 Hydromorphone HCl (Dilaudid) 1 mg Q2H PRN IV pain Last administered on 21:20; Admin Dose 1 MG; Start 08/02/16 at 19:00 Hydralazine HCl (Apresoline) 25 mg Q8 PO Last administered on 08/06/16 05:44; Admin Dose 25 MG; Start 08/04/16 at 22:00; Status Future Hold Nifedipine (Procardia Xl) 30 mg BID PO ; Start 08/07/16 at 21:00; Status Future Hold Zolpidem Tartrate (Ambien) 5 mg HS PRN PO INSOMNIA Last administered on 00:11; Admin Dose 5 MG; Start 08/08/16 at 21:00 Benazepril HCl (Lotensin) 10 mg BID PO ; Start 08/09/16 at 09:00; Status Future Hold Metoprolol Tartrate 25 mg 25 mg BID GTB ; Start 08/09/16 at 21:00 Norepinephrine 16 mg/Dextrose 500 ml @ 1.87 mls/hr TITRATE IV Last administered on 08/11/16 06:05; Admin Dose 3.75 MLS/HR; Start 08/09/16 at 15:30 Caspofungin 50 mg/ Sodium Chloride 250 ml @ 250 mls/hr Q24H IVPB Last administered on 08/11/16 17:52; Admin Dose 250 MLS/HR; Start 08/10/16 at 17:00 Sodium Chloride 1,000 ml @ 50 mls/hr Q20H IV Last administered on 08/12/16 02 :05; Admin Dose 50 MLS/HR; Start 08/09/16 at 17:30 Dopamine HCl/ Dextrose (D5W) 250 ml @ 1.71 mls/hr TITRATE IV Last administered on 08/11/16 15:07; Admin Dose 11.43 MLS/HR; Start 08/10/16 at 15:30 Acetaminophen (Tylenol Tab) 650 mg Q6H PRN PO PAIN AND OR ELEVATED TEMP Last administered on 08/12/16 00:54; Admin Dose 650 MG; Start 08/10/16 at 16:30 Clopidogrel Bisulfate 75 mg 75 mg DAILY PO Last administered on 08/12/16 09:10 ; Admin Dose 75 MG; Start 08/11/16 at 12:00 Phenylephrine HCl 160 mg/Dextrose 500 ml @ 18.75 mls/ hr TITRATE IV ; Start 03/20 at 06:00 Sodium Bicarbonate 50 meq/Dextrose/ Sodium Chloride 1,050 ml @ 125 mls/hr Q8H24M IV Last administered on 08/12/16 09:55; Admin Dose 125 MLS/HR; Start at 07:00 Albumin Human 100 ml @ 100 mls/hr Q8H IV Last administered on 08/12/16 06:47 ; Admin Dose 100 MLS/HR; Start 08/12/16 at 07:00; Stop 08/12/16 at 23:59 Meropenem (Merrem 500 Mg/ 100 ml (Pmx)) 100 ml @ 200 mls/hr Q24H IVPB ; Start 08/13/16 at 09:00 LILIA FELIZ MD Aug 12, 2016 13:28
--- NOTE | 2016-08-12 15:51 | CONS ---
Date/Time of Note Date/Time of Note DATE: 08/12/16 TIME: 15:48 Assessment/Plan Assessment/Plan Additional Assessment/Plan 1. Abnormal electrocardiogram, assess for acute coronary syndrome with recurrent chest pain now and recently negative stress test.-negative troponin x 3 - will adjust Rx as needed 2. History of a percutaneous transluminal coronary angioplasty and stent placement to left main and left anterior descending in 2014. No CP now. 3. History of coronary artery bypass graft surgery. 4. Video assisted thoracoscopic surgery pleurodesis with leakage from the chest tube site.- now s/p repeat VATS/pleurodesis with CT - had some bleeding, better now, CT team follows. 5. Shortness of breath- with ChestTube 6. End-stage renal disease on hemodialysis- Rx as needed per primary team 7. Tuberculosis, on therapy. 8. Hypotension-now on levo 9. Diabetes mellitus. 10. Dyslipidemia. 11. Anemia-worsening s/p transfusion 12.Empyema/cavitary lesions by CT Consultation Date/Type/Reason Admit Date/Time Jul 24, 2016 at 12:53 Initial Consult Date 07/25/16 Type of Consultation: Pulmonary/critical care Referring Provider: EVA COX MD 24 HR Interval Summary Free Text/Dictation No acute change- decrease bleed at CT site -will monitor clinically. ROS: No fever, no chills, no nausea, no vomiting, no diarrhea/constipation No recent weight changes No chest pain, no PND, no orthopnea No dizziness, blurred vision No thirst, no heat or cold intolerance (pain RX) Exam/Review of Systems Vital Signs Vitals Vital Signs Date Time Temp Pulse Resp B/P Pulse Ox O2 Delivery O2 Flow Rate FiO2 08/12/16 14:45 82 15 142/54 97 Room Air 08/12/16 12:00 97.4 08/12/16 07:45 2.0 Intake and Output 08/11/16 08/11/16 08/12/16 15:00 23:00 07:00 Intake Total 1174.29 ml 2755.61 ml 1220.16 ml Output Total 2435 ml 1210 ml Balance 1174.29 ml 320.61 ml 10.16 ml Exam General: WN/WD/NAD, AOx 2-3 HEENT: Unicetric/atraumatic/EOMI (follow commands) NECK: JVD elevated, no thyromegaly Lymph: no lymphadenopathy HEART: regular with no S3, II/ systolic murmur at apex LUNGS: Coarse sounds / post VATS ABD: soft, NT, ND, +BS : Intact Neuro: non focal SKIN: chronic changes EXT: trace edema Results Result Diagram: 08/12/16 0400 08/12/16 0400 Results 24 hrs Laboratory Tests Test 08/11/16 16:28 08/11/16 16:52 08/11/16 20:45 08/12/16 04:00 Troponin I 0.020 Bedside Glucose 176 178 White Blood Count 12.7 #H Red Blood Count 3.44 L Hemoglobin 11.0 L Hematocrit 31.9 L Mean Corpuscular Volume 92.7 Mean Corpuscular Hemoglobin 32.0 Mean Corpuscular Hemoglobin Concent 34.5 Red Cell Distribution Width 16.3 H Platelet Count 317 Mean Platelet Volume 9.8 Neutrophils % 90.2 H Lymphocytes % 2.5 L Monocytes % 5.9 Eosinophils % 0.2 Basophils % 0.1 Nucleated Red Blood Cells % 0.0 Neutrophils # 11.5 H Lymphocytes # 0.3 L Monocytes # 0.8 Eosinophils # 0.0 Basophils # 0.0 Nucleated Red Blood Cells # 0.0 Sodium Level 131 L Potassium Level 4.7 Chloride Level 101 Carbon Dioxide Level 18 L Anion Gap 17 #H Blood Urea Nitrogen 72 #H Creatinine 6.10 #H Glucose Level 205 Calcium Level 7.0 L Total Bilirubin 4.8 H Direct Bilirubin 3.80 #H Indirect Bilirubin 1.0 Aspartate Amino Transf (AST/SGOT) 70 #H Alanine Aminotransferase (ALT/SGPT) 23 Alkaline Phosphatase 131 H Total Protein 4.8 L Albumin 2.2 L Globulin 2.60 Albumin/Globulin Ratio 0.84 Test 08/12/16 09:01 08/12/16 12:02 Bedside Glucose 192 265 H Medications Medications Current Medications Aspirin (Halfprin) 81 mg DAILY PO Last administered on 08/12/16 09:10; Admin Dose 81 MG; Start 07/25/16 at 09:00; Status Future hold Atorvastatin Calcium (Lipitor) 10 mg QHS PO Last administered on 08/11/16 20: 44; Admin Dose 10 MG; Start 07/24/16 at 21:00 Cholecalciferol (Vitamin D) 400 units DAILY PO Last administered on 08/12/16 09:10; Admin Dose 400 UNITS; Start 07/25/16 at 09:00 Famotidine (Pepcid) 20 mg DAILY PO Last administered on 08/12/16 09:11; Admin Dose 20 MG; Start 07/25/16 at 09:00 Ferrous Sulfate (Ferrous Sulfate (Ec)) 325 mg BID PO Last administered on 09:11; Admin Dose 325 MG; Start 07/24/16 at 21:00 Acetaminophen/ Hydrocodone Bitart ([place] (5/325)) 1 tab Q4H PRN PO PAIN Last administered on 08/09/16 19:03; Admin Dose 1 TAB; Start 07/24/16 at 17:00 Isoniazid (Isoniazid) 300 mg DAILY PO Last administered on 08/12/16 09:09; Admin Dose 300 MG; Start 07/24/16 at 15:30 Pyridoxine HCl (Vitamin B6) 50 mg DAILY PO Last administered on 08/12/16 09:11 ; Admin Dose 50 MG; Start 07/25/16 at 09:00 Rifampin (Rifampin) 600 mg DAILY PO Last administered on 08/12/16 09:10; Admin Dose 600 MG; Start 07/25/16 at 09:00 Miscellaneous Information 1 ea NOTE XX ; Start 07/24/16 at 16:00 Glucose (Glutose) 15 gm Q15M PRN PO DECREASED GLUCOSE; Start 07/24/16 at 16:00 Glucose (Glutose) 22.5 gm Q15M PRN PO DECREASED GLUCOSE; Start 07/24/16 at 16: 00 Dextrose (D50w Syringe) 25 ml Q15M PRN IV DECREASED GLUCOSE; Start 07/24/16 at 16:00 Dextrose (D50w Syringe) 50 ml Q15M PRN IV DECREASED GLUCOSE; Start 07/24/16 at 16:00 Glucagon (Glucagen) 1 mg Q15M PRN IM DECREASED GLUCOSE; Start 07/24/16 at 16:00 Glucose (Glutose) 15 gm Q15M PRN BUCCAL DECREASED GLUCOSE; Start 07/24/16 at 16 :00 Ondansetron HCl (Zofran Inj) 4 mg Q4 PRN IV nausea Last administered on 22:43; Admin Dose 4 MG; Start 07/24/16 at 17:00 Metoclopramide HCl (Reglan) 5 mg Q4H PRN IV NAUSEA Last administered on 22:43; Admin Dose 5 MG; Start 07/24/16 at 22:30 Diagnostic Test (Pha) (Accu-Chek) 1 ea 02 XX Last administered on 08/11/16 01: 52; Admin Dose 1 EA; Start 07/26/16 at 12:00 Clonidine HCl (Catapres-Tts 2 Patch) 1 patch Q7D TRANSDERM Last administered on 08/03/16 06:32; Admin Dose 1 PATCH; Start 07/27/16 at 07:00; Status Future Hold Pantoprazole (Protonix Tab) 40 mg DAILY@06 PO Last administered on 08/12/16 06 :35; Admin Dose 40 MG; Start 07/28/16 at 06:00 Hydralazine HCl (Apresoline) 20 mg Q4 PRN IV ELEVATED BLOOD PRESSURE Last administered on 08/04/16 16:35; Admin Dose 20 MG; Start 07/28/16 at 02:00 Doxazosin Mesylate (Cardura) 2 mg HS PO Last administered on 08/05/16 21:57; Admin Dose 2 MG; Start 07/28/16 at 21:00; Status Future Hold Polyethylene Glycol (Miralax) 17 gm DAILY PRN GTB CONSTIPATION Last administered on 07/28/16 20:22; Admin Dose 17 GM; Start 07/28/16 at 19:30 Lorazepam (Ativan) 1 mg Q4H PRN IV anxiety Last administered on 07/30/16 20:48 ; Admin Dose 1 MG; Start 07/29/16 at 06:30 Ethambutol HCl (Myambutol) 900 mg TuThSa@20 PO Last administered on 08/09/16 21 :46; Admin Dose 900 MG; Start 07/31/16 at 20:00 Pyrazinamide (Pyrazinamide) 1,250 mg TuThSa@20 PO Last administered on 21:47; Admin Dose 1,250 MG; Start 07/31/16 at 20:00 Hydromorphone HCl (Dilaudid) 1 mg Q2H PRN IV pain Last administered on 21:20; Admin Dose 1 MG; Start 08/02/16 at 19:00 Hydralazine HCl (Apresoline) 25 mg Q8 PO Last administered on 08/06/16 05:44; Admin Dose 25 MG; Start 08/04/16 at 22:00; Status Future Hold Nifedipine (Procardia Xl) 30 mg BID PO ; Start 08/07/16 at 21:00; Status Future Hold Zolpidem Tartrate (Ambien) 5 mg HS PRN PO INSOMNIA Last administered on 00:11; Admin Dose 5 MG; Start 08/08/16 at 21:00 Benazepril HCl (Lotensin) 10 mg BID PO ; Start 08/09/16 at 09:00; Status Future Hold Metoprolol Tartrate 25 mg 25 mg BID GTB ; Start 08/09/16 at 21:00 Norepinephrine 16 mg/Dextrose 500 ml @ 1.87 mls/hr TITRATE IV Last administered on 08/12/16 14:38; Admin Dose 9.37 MLS/HR; Start 08/09/16 at 15:30 Caspofungin 50 mg/ Sodium Chloride 250 ml @ 250 mls/hr Q24H IVPB Last administered on 08/11/16 17:52; Admin Dose 250 MLS/HR; Start 08/10/16 at 17:00 Sodium Chloride 1,000 ml @ 50 mls/hr Q20H IV Last administered on 08/12/16 02 :05; Admin Dose 50 MLS/HR; Start 08/09/16 at 17:30 Dopamine HCl/ Dextrose (D5W) 250 ml @ 1.71 mls/hr TITRATE IV Last administered on 08/11/16 15:07; Admin Dose 11.43 MLS/HR; Start 08/10/16 at 15:30 Acetaminophen (Tylenol Tab) 650 mg Q6H PRN PO PAIN AND OR ELEVATED TEMP Last administered on 08/12/16 00:54; Admin Dose 650 MG; Start 08/10/16 at 16:30 Clopidogrel Bisulfate 75 mg 75 mg DAILY PO Last administered on 08/12/16 09:10 ; Admin Dose 75 MG; Start 08/11/16 at 12:00 Phenylephrine HCl 160 mg/Dextrose 500 ml @ 18.75 mls/ hr TITRATE IV ; Start 03/20 at 06:00 Sodium Bicarbonate 50 meq/Dextrose/ Sodium Chloride 1,050 ml @ 125 mls/hr Q8H24M IV Last administered on 08/12/16 09:55; Admin Dose 125 MLS/HR; Start at 07:00 Albumin Human 100 ml @ 100 mls/hr Q8H IV Last administered on 08/12/16 14:27 ; Admin Dose 100 MLS/HR; Start 08/12/16 at 07:00; Stop 08/12/16 at 23:59 Meropenem (Merrem 500 Mg/ 100 ml (Pmx)) 100 ml @ 200 mls/hr Q24H IVPB ; Start 08/13/16 at 09:00 Insulin Glargine (Lantus) 6 unit DAILY@08 SC ; Start 08/13/16 at 08:00 CRIS BERNARD MD Aug 12, 2016 15:51
--- NOTE | 2016-08-12 16:54 | PN ---
Date/Time of Note Date/Time of Note DATE: 08/12/16 TIME: 16:52 Assessment/Plan VTE Prophylaxis VTE Prophylaxis Intervention: other Lines/Catheters IV Catheter Type ([facility] Urinary Cath still in place: No Assessment/Plan Assessment/Plan - Recurrent right pleural effusion consistent with empyema, cavitary lesions, status post right thoracotomy and pulmonary decortication on 08/04. -Hemoptysis, resolved. Dr. Dale is following in pulmonology consultation. Dr. Caitlin balderas is following an infection disease consultation. -Right former chest tube site bleeding, resolved. Dr. Martinez is following in thoracic surgery consultation. -Anemia of acute blood loss, patient had bleeding from the right femoral catheter as well as chest tube site on admission, status post blood transfusion , continue to monitor hemoglobin and hematocrit. Dr. Martinez is following in hematology consultation. 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 - End-stage renal disease, continue hemodialysis. Dr. Saunders is following in nephrology consultation. - Diabetes mellitus type 2, Pre-meal NovoLog and NovoLog per mild algorithm sliding scale. - Hypertension. Dr. De Santiago is following and cardiology consultation. Continue benazepril metoprolol hydralazine Procardia - Coronary artery disease, status post coronary artery bypass graft, s/p percutaneous transluminal coronary angioplasty and stent placement to left main and left anterior descending in 2014. - Permanent pacemaker. No acute issues. - Dyslipidemia. Continue Lipitor. - Hyponatremia-per pensions retirement plan specialist. Further recommendations based on clinical course. Plan of care discussed with Dr. Price. Further treatment depends upon patient's clinical course. Total critical care time spent 30 mins. Plan of care dw Dr Price/staff Subjective 24 Hr Interval Summary Free Text/Dictation SLEEPING, COMFORTABLE, LEVOFED 3 MCG.afebrile Eyes: no complaints ENT: no complaints Respiratory: shortness of breath Cardiovascular: no complaints Gastrointestinal: no complaints Genitourinary: no complaints Musculoskeletal: no complaints Skin: no complaints Neurologic: no complaints Psychological: no complaints Immunologic: no complaints Exam/Review of Systems Vital Signs Vitals Vital Signs Date Time Temp Pulse Resp B/P Pulse Ox O2 Delivery O2 Flow Rate FiO2 08/12/16 16:00 82 08/12/16 14:45 15 142/54 97 Room Air 08/12/16 12:00 97.4 08/12/16 07:45 2.0 Intake and Output 08/11/16 08/11/16 08/12/16 15:00 23:00 07:00 Intake Total 1174.29 ml 2755.61 ml 1220.16 ml Output Total 2435 ml 1210 ml Balance 1174.29 ml 320.61 ml 10.16 ml Exam Constitutional: alert Psych: nl mood/affect Eyes: EOMI, nl sclera ENMT: nl external ears & nose Neck: non-tender Respiratory: diminished breath sounds Cardiovascular: nl pulses Gastrointestinal: non-tender, soft Musculoskeletal: nl extremities to inspection Extremities: normal pulses Neurological: nl mental status, nl speech Skin: nl turgor Lymph: nontender Results Result Diagram: 08/12/16 0400 08/12/16 0400 Results 24 hrs Laboratory Tests Test 08/11/16 20:45 08/12/16 04:00 08/12/16 09:01 08/12/16 12:02 Bedside Glucose 178 192 265 H White Blood Count 12.7 #H Red Blood Count 3.44 L Hemoglobin 11.0 L Hematocrit 31.9 L Mean Corpuscular Volume 92.7 Mean Corpuscular Hemoglobin 32.0 Mean Corpuscular Hemoglobin Concent 34.5 Red Cell Distribution Width 16.3 H Platelet Count 317 Mean Platelet Volume 9.8 Neutrophils % 90.2 H Lymphocytes % 2.5 L Monocytes % 5.9 Eosinophils % 0.2 Basophils % 0.1 Nucleated Red Blood Cells % 0.0 Neutrophils # 11.5 H Lymphocytes # 0.3 L Monocytes # 0.8 Eosinophils # 0.0 Basophils # 0.0 Nucleated Red Blood Cells # 0.0 Sodium Level 131 L Potassium Level 4.7 Chloride Level 101 Carbon Dioxide Level 18 L Anion Gap 17 #H Blood Urea Nitrogen 72 #H Creatinine 6.10 #H Glucose Level 205 Calcium Level 7.0 L Total Bilirubin 4.8 H Direct Bilirubin 3.80 #H Indirect Bilirubin 1.0 Aspartate Amino Transf (AST/SGOT) 70 #H Alanine Aminotransferase (ALT/SGPT) 23 Alkaline Phosphatase 131 H Total Protein 4.8 L Albumin 2.2 L Globulin 2.60 Albumin/Globulin Ratio 0.84 Medications Medications Current Medications Aspirin (Halfprin) 81 mg DAILY PO Last administered on 08/12/16 09:10; Admin Dose 81 MG; Start 07/25/16 at 09:00; Status Future hold Atorvastatin Calcium (Lipitor) 10 mg QHS PO Last administered on 08/11/16 20: 44; Admin Dose 10 MG; Start 07/24/16 at 21:00 Cholecalciferol (Vitamin D) 400 units DAILY PO Last administered on 08/12/16 09:10; Admin Dose 400 UNITS; Start 07/25/16 at 09:00 Famotidine (Pepcid) 20 mg DAILY PO Last administered on 08/12/16 09:11; Admin Dose 20 MG; Start 07/25/16 at 09:00 Ferrous Sulfate (Ferrous Sulfate (Ec)) 325 mg BID PO Last administered on 09:11; Admin Dose 325 MG; Start 07/24/16 at 21:00 Acetaminophen/ Hydrocodone Bitart ([place] (5/325)) 1 tab Q4H PRN PO PAIN Last administered on 08/09/16 19:03; Admin Dose 1 TAB; Start 07/24/16 at 17:00 Isoniazid (Isoniazid) 300 mg DAILY PO Last administered on 08/12/16 09:09; Admin Dose 300 MG; Start 07/24/16 at 15:30 Pyridoxine HCl (Vitamin B6) 50 mg DAILY PO Last administered on 08/12/16 09:11 ; Admin Dose 50 MG; Start 07/25/16 at 09:00 Rifampin (Rifampin) 600 mg DAILY PO Last administered on 08/12/16 09:10; Admin Dose 600 MG; Start 07/25/16 at 09:00 Miscellaneous Information 1 ea NOTE XX ; Start 07/24/16 at 16:00 Glucose (Glutose) 15 gm Q15M PRN PO DECREASED GLUCOSE; Start 07/24/16 at 16:00 Glucose (Glutose) 22.5 gm Q15M PRN PO DECREASED GLUCOSE; Start 07/24/16 at 16: 00 Dextrose (D50w Syringe) 25 ml Q15M PRN IV DECREASED GLUCOSE; Start 07/24/16 at 16:00 Dextrose (D50w Syringe) 50 ml Q15M PRN IV DECREASED GLUCOSE; Start 07/24/16 at 16:00 Glucagon (Glucagen) 1 mg Q15M PRN IM DECREASED GLUCOSE; Start 07/24/16 at 16:00 Glucose (Glutose) 15 gm Q15M PRN BUCCAL DECREASED GLUCOSE; Start 07/24/16 at 16 :00 Ondansetron HCl (Zofran Inj) 4 mg Q4 PRN IV nausea Last administered on 22:43; Admin Dose 4 MG; Start 07/24/16 at 17:00 Metoclopramide HCl (Reglan) 5 mg Q4H PRN IV NAUSEA Last administered on 22:43; Admin Dose 5 MG; Start 07/24/16 at 22:30 Diagnostic Test (Pha) (Accu-Chek) 1 ea 02 XX Last administered on 08/11/16 01: 52; Admin Dose 1 EA; Start 07/26/16 at 12:00 Clonidine HCl (Catapres-Tts 2 Patch) 1 patch Q7D TRANSDERM Last administered on 08/03/16 06:32; Admin Dose 1 PATCH; Start 07/27/16 at 07:00; Status Future Hold Pantoprazole (Protonix Tab) 40 mg DAILY@06 PO Last administered on 08/12/16 06 :35; Admin Dose 40 MG; Start 07/28/16 at 06:00 Hydralazine HCl (Apresoline) 20 mg Q4 PRN IV ELEVATED BLOOD PRESSURE Last administered on 08/04/16 16:35; Admin Dose 20 MG; Start 07/28/16 at 02:00 Doxazosin Mesylate (Cardura) 2 mg HS PO Last administered on 08/05/16 21:57; Admin Dose 2 MG; Start 07/28/16 at 21:00; Status Future Hold Polyethylene Glycol (Miralax) 17 gm DAILY PRN GTB CONSTIPATION Last administered on 07/28/16 20:22; Admin Dose 17 GM; Start 07/28/16 at 19:30 Lorazepam (Ativan) 1 mg Q4H PRN IV anxiety Last administered on 07/30/16 20:48 ; Admin Dose 1 MG; Start 07/29/16 at 06:30 Ethambutol HCl (Myambutol) 900 mg TuThSa@20 PO Last administered on 08/09/16 21 :46; Admin Dose 900 MG; Start 07/31/16 at 20:00 Pyrazinamide (Pyrazinamide) 1,250 mg TuThSa@20 PO Last administered on 21:47; Admin Dose 1,250 MG; Start 07/31/16 at 20:00 Hydromorphone HCl (Dilaudid) 1 mg Q2H PRN IV pain Last administered on 21:20; Admin Dose 1 MG; Start 08/02/16 at 19:00 Hydralazine HCl (Apresoline) 25 mg Q8 PO Last administered on 08/06/16 05:44; Admin Dose 25 MG; Start 08/04/16 at 22:00; Status Future Hold Nifedipine (Procardia Xl) 30 mg BID PO ; Start 08/07/16 at 21:00; Status Future Hold Zolpidem Tartrate (Ambien) 5 mg HS PRN PO INSOMNIA Last administered on 00:11; Admin Dose 5 MG; Start 08/08/16 at 21:00 Benazepril HCl (Lotensin) 10 mg BID PO ; Start 08/09/16 at 09:00; Status Future Hold Metoprolol Tartrate 25 mg 25 mg BID GTB ; Start 08/09/16 at 21:00 Norepinephrine 16 mg/Dextrose 500 ml @ 1.87 mls/hr TITRATE IV Last administered on 08/12/16 14:38; Admin Dose 9.37 MLS/HR; Start 08/09/16 at 15:30 Caspofungin 50 mg/ Sodium Chloride 250 ml @ 250 mls/hr Q24H IVPB Last administered on 08/11/16 17:52; Admin Dose 250 MLS/HR; Start 08/10/16 at 17:00 Sodium Chloride 1,000 ml @ 50 mls/hr Q20H IV Last administered on 08/12/16 02 :05; Admin Dose 50 MLS/HR; Start 08/09/16 at 17:30 Dopamine HCl/ Dextrose (D5W) 250 ml @ 1.71 mls/hr TITRATE IV Last administered on 08/11/16 15:07; Admin Dose 11.43 MLS/HR; Start 08/10/16 at 15:30 Acetaminophen (Tylenol Tab) 650 mg Q6H PRN PO PAIN AND OR ELEVATED TEMP Last administered on 08/12/16 00:54; Admin Dose 650 MG; Start 08/10/16 at 16:30 Clopidogrel Bisulfate 75 mg 75 mg DAILY PO Last administered on 08/12/16 09:10 ; Admin Dose 75 MG; Start 08/11/16 at 12:00 Phenylephrine HCl 160 mg/Dextrose 500 ml @ 18.75 mls/ hr TITRATE IV ; Start 03/20 at 06:00 Sodium Bicarbonate 50 meq/Dextrose/ Sodium Chloride 1,050 ml @ 125 mls/hr Q8H24M IV Last administered on 08/12/16 09:55; Admin Dose 125 MLS/HR; Start at 07:00 Albumin Human 100 ml @ 100 mls/hr Q8H IV Last administered on 08/12/16 14:27 ; Admin Dose 100 MLS/HR; Start 08/12/16 at 07:00; Stop 08/12/16 at 23:59 Meropenem (Merrem 500 Mg/ 100 ml (Pmx)) 100 ml @ 200 mls/hr Q24H IVPB ; Start 08/13/16 at 09:00 Insulin Glargine (Lantus) 6 unit DAILY@08 SC ; Start 08/13/16 at 08:00 PATRICIA RUEDA Aug 12, 2016 16:54
[2016-08-12] MEDS ORDERED: LEVOFLOXACIN 500MG/D5W (PMX) 100 ML IVPB ONE (17:30)
[2016-08-12] MEDS: CASPOFUNGIN 50 MG in SOD CHLORIDE 0.9% 250 ML IVPB SCH (17:46)
--- NOTE | 2016-08-12 18:00 | CONS ---
Date/Time of Note Date/Time of Note DATE: 08/12/16 TIME: : Assessment/Plan Assessment/Plan Chief Complaint/Hosp Course - possible tubercular empyema: R sided complex loculated air containing empyemas , visceral and parietal pleural calcifications. - a 35 mm lesion with possible cavitation in the anterior inferior RUL, possible recurrent tuberculosis - high risk for TB: history (originally from [facility], spends one month of each year in [facility], last in 09/2015), medical history (DM, ESRD), laboratory findings (positive quantiferon TB gold, granulomatous inflammation with focal necrosis on Bx of pleura) - AFB smear was negative x3, also M. tuberculosis DNA probe to the 1st sputum sample was undetectable in early 07/2016 - s/p first R VATS, total pulmonary decortication, R pleurodesis on 06/30/2016. Biopsy was negative for fungal stain and AFB stain (micro lab and pathology department), as well as malignancy. It showed granulomatous inflammation with focal necrosis and extensive hyalinization. - s/p second R VATS, decortication thoracotomy on 08/04/2016. Per Dr. Martinez, the tissue did not appear empyema. It was largely blood clots and tissue debris. Fluid was sent for cultures, but not tissue. Path showed blood and polarizable foreign material, no malignancy - sputum collected on 08/02/2016 was negative for mycobacterium tuberculosis DNA probe - h/o recurrent pleural effusion requiring thoracentesis approximately once a year, last performed in 04/2016 prior to this admission - positive quantiferon TB gold status of unknown duration. Per Pt, his past PPD was done in 2013, and was negative. - Our infection animal control supervisor Lindsey contacted the TB control unit at [facility]: we learned on 07/11/2016 that Pt has h/o mycobacterial tuberculosis infection in 1997 and was treated between 1997 and 1998. - DM s/p hypoglycemic episode on 08/04/16 & 08/06/16 (Hgb A1c 5.2% on 06/17/16 unreliable d/t recent blood transfusion; Hgb A1c 8.6% on 05/03/15) - ESRD on HD - CAD s/p CABG in 2010 and cardiac stent in 2013 - Moderate to severe protein calorie malnutrition - HIV screen negative in 07/2016 tested at [facility] - Sepsis vs SIRS - Hypotension requiring Levophed and Dopamine - Hyperbilirubinemia Recommendations - f/u han cx (blood cx negative to date; sputum cx growing rik albicans), procalc, [id number] - continue empiric abx: vanco/jae/micafungin - pending: mycobacterium tuberculosis DNA probe to fluid in GUIDO bulb was sent on 08/06/2016 - DC Rifampin d/t increasing T. Bili; start renally dosed Levaquin - continue renally dosed isoniazid, pyrazinamide, ethambutol and vitamin B6 supplement (07/12/2016-) - check cocci CF and crypto antigen in serum - Dr. Saunders at TB unit to send pleural biopsy to [facility] for more testing - check LFTs' weekly - consider repeat CT chest - Management d/w [employer] - Above d/w Dr. Tucker - Critical care time spent: 40 minutes Problems: Consultation Date/Type/Reason Admit Date/Time Jul 24, 2016 at 12:53 Initial Consult Date 07/25/16 Type of Consultation: Infectious Disease Referring Provider: EVA COX MD 24 HR Interval Summary Free Text/Dictation Pt weaned off of Dopamine but still on Levophed at 3mcg/hr; right chest tube still with >1 L drainage this shift and last night; poor appetite per d/w [employer] Renetta. Pt states right chest tube discomfort is currently tolerable. Denies CP, SOB, abd pain, n/v/d, dysuria. Had soft BM today. Subjective hx not possible: pt critical status Exam/Review of Systems Vital Signs Vitals Vital Signs Date Time Temp Pulse Resp B/P Pulse Ox O2 Delivery O2 Flow Rate FiO2 08/12/16 16:00 82 08/12/16 14:45 15 142/54 97 Room Air 08/12/16 12:00 97.4 08/12/16 07:45 2.0 Intake and Output 08/11/16 08/11/16 08/12/16 15:00 23:00 07:00 Intake Total 1174.29 ml 2755.61 ml 1220.16 ml Output Total 2435 ml 1210 ml Balance 1174.29 ml 320.61 ml 10.16 ml Exam Constitutional: alert, frail Head: atraumatic, normocephalic, other (no thrush noted) Neck: supple, non-tender Respiratory: diminished breath sounds, other (Right sided chest tube intact with serous drainage) Gastrointestinal: non-tender, soft Genitourinary - Male: other (bilateral groin HD catheter intact) Musculoskeletal: nl extremities to inspection Extremities: No clubbing, No cyanosis, No edema Results Result Diagram: 08/12/16 0400 08/12/16 0400 Results 24 hrs Laboratory Tests Test 08/11/16 20:45 08/12/16 04:00 08/12/16 09:01 08/12/16 12:02 Bedside Glucose 178 192 265 H White Blood Count 12.7 #H Red Blood Count 3.44 L Hemoglobin 11.0 L Hematocrit 31.9 L Mean Corpuscular Volume 92.7 Mean Corpuscular Hemoglobin 32.0 Mean Corpuscular Hemoglobin Concent 34.5 Red Cell Distribution Width 16.3 H Platelet Count 317 Mean Platelet Volume 9.8 Neutrophils % 90.2 H Lymphocytes % 2.5 L Monocytes % 5.9 Eosinophils % 0.2 Basophils % 0.1 Nucleated Red Blood Cells % 0.0 Neutrophils # 11.5 H Lymphocytes # 0.3 L Monocytes # 0.8 Eosinophils # 0.0 Basophils # 0.0 Nucleated Red Blood Cells # 0.0 Sodium Level 131 L Potassium Level 4.7 Chloride Level 101 Carbon Dioxide Level 18 L Anion Gap 17 #H Blood Urea Nitrogen 72 #H Creatinine 6.10 #H Glucose Level 205 Calcium Level 7.0 L Total Bilirubin 4.8 H Direct Bilirubin 3.80 #H Indirect Bilirubin 1.0 Aspartate Amino Transf (AST/SGOT) 70 #H Alanine Aminotransferase (ALT/SGPT) 23 Alkaline Phosphatase 131 H Total Protein 4.8 L Albumin 2.2 L Globulin 2.60 Albumin/Globulin Ratio 0.84 Medications Medications Current Medications Aspirin (Halfprin) 81 mg DAILY PO Last administered on 08/12/16 09:10; Admin Dose 81 MG; Start 07/25/16 at 09:00; Status Future hold Atorvastatin Calcium (Lipitor) 10 mg QHS PO Last administered on 08/11/16 20: 44; Admin Dose 10 MG; Start 07/24/16 at 21:00 Cholecalciferol (Vitamin D) 400 units DAILY PO Last administered on 08/12/16 09:10; Admin Dose 400 UNITS; Start 07/25/16 at 09:00 Famotidine (Pepcid) 20 mg DAILY PO Last administered on 08/12/16 09:11; Admin Dose 20 MG; Start 07/25/16 at 09:00 Ferrous Sulfate (Ferrous Sulfate (Ec)) 325 mg BID PO Last administered on 09:11; Admin Dose 325 MG; Start 07/24/16 at 21:00 Acetaminophen/ Hydrocodone Bitart ([place] (5/325)) 1 tab Q4H PRN PO PAIN Last administered on 08/09/16 19:03; Admin Dose 1 TAB; Start 07/24/16 at 17:00 Isoniazid (Isoniazid) 300 mg DAILY PO Last administered on 08/12/16 09:09; Admin Dose 300 MG; Start 07/24/16 at 15:30 Pyridoxine HCl (Vitamin B6) 50 mg DAILY PO Last administered on 08/12/16 09:11 ; Admin Dose 50 MG; Start 07/25/16 at 09:00 Miscellaneous Information 1 ea NOTE XX ; Start 07/24/16 at 16:00 Glucose (Glutose) 15 gm Q15M PRN PO DECREASED GLUCOSE; Start 07/24/16 at 16:00 Glucose (Glutose) 22.5 gm Q15M PRN PO DECREASED GLUCOSE; Start 07/24/16 at 16: 00 Dextrose (D50w Syringe) 25 ml Q15M PRN IV DECREASED GLUCOSE; Start 07/24/16 at 16:00 Dextrose (D50w Syringe) 50 ml Q15M PRN IV DECREASED GLUCOSE; Start 07/24/16 at 16:00 Glucagon (Glucagen) 1 mg Q15M PRN IM DECREASED GLUCOSE; Start 07/24/16 at 16:00 Glucose (Glutose) 15 gm Q15M PRN BUCCAL DECREASED GLUCOSE; Start 07/24/16 at 16 :00 Ondansetron HCl (Zofran Inj) 4 mg Q4 PRN IV nausea Last administered on 22:43; Admin Dose 4 MG; Start 07/24/16 at 17:00 Metoclopramide HCl (Reglan) 5 mg Q4H PRN IV NAUSEA Last administered on 22:43; Admin Dose 5 MG; Start 07/24/16 at 22:30 Diagnostic Test (Pha) (Accu-Chek) 1 ea 02 XX Last administered on 08/11/16 01: 52; Admin Dose 1 EA; Start 07/26/16 at 12:00 Clonidine HCl (Catapres-Tts 2 Patch) 1 patch Q7D TRANSDERM Last administered on 08/03/16 06:32; Admin Dose 1 PATCH; Start 07/27/16 at 07:00; Status Future Hold Pantoprazole (Protonix Tab) 40 mg DAILY@06 PO Last administered on 08/12/16 06 :35; Admin Dose 40 MG; Start 07/28/16 at 06:00 Hydralazine HCl (Apresoline) 20 mg Q4 PRN IV ELEVATED BLOOD PRESSURE Last administered on 08/04/16 16:35; Admin Dose 20 MG; Start 07/28/16 at 02:00 Doxazosin Mesylate (Cardura) 2 mg HS PO Last administered on 08/05/16 21:57; Admin Dose 2 MG; Start 07/28/16 at 21:00; Status Future Hold Polyethylene Glycol (Miralax) 17 gm DAILY PRN GTB CONSTIPATION Last administered on 07/28/16 20:22; Admin Dose 17 GM; Start 07/28/16 at 19:30 Lorazepam (Ativan) 1 mg Q4H PRN IV anxiety Last administered on 07/30/16 20:48 ; Admin Dose 1 MG; Start 07/29/16 at 06:30 Ethambutol HCl (Myambutol) 900 mg TuThSa@20 PO Last administered on 08/09/16 21 :46; Admin Dose 900 MG; Start 07/31/16 at 20:00 Pyrazinamide (Pyrazinamide) 1,250 mg TuThSa@20 PO Last administered on 21:47; Admin Dose 1,250 MG; Start 07/31/16 at 20:00 Hydromorphone HCl (Dilaudid) 1 mg Q2H PRN IV pain Last administered on 21:20; Admin Dose 1 MG; Start 08/02/16 at 19:00 Hydralazine HCl (Apresoline) 25 mg Q8 PO Last administered on 08/06/16 05:44; Admin Dose 25 MG; Start 08/04/16 at 22:00; Status Future Hold Nifedipine (Procardia Xl) 30 mg BID PO ; Start 08/07/16 at 21:00; Status Future Hold Zolpidem Tartrate (Ambien) 5 mg HS PRN PO INSOMNIA Last administered on 00:11; Admin Dose 5 MG; Start 08/08/16 at 21:00 Benazepril HCl (Lotensin) 10 mg BID PO ; Start 08/09/16 at 09:00; Status Future Hold Metoprolol Tartrate 25 mg 25 mg BID GTB ; Start 08/09/16 at 21:00 Norepinephrine 16 mg/Dextrose 500 ml @ 1.87 mls/hr TITRATE IV Last administered on 08/12/16 14:38; Admin Dose 9.37 MLS/HR; Start 08/09/16 at 15:30 Caspofungin 50 mg/ Sodium Chloride 250 ml @ 250 mls/hr Q24H IVPB Last administered on 08/11/16 17:52; Admin Dose 250 MLS/HR; Start 08/10/16 at 17:00 Sodium Chloride 1,000 ml @ 50 mls/hr Q20H IV Last administered on 08/12/16 02 :05; Admin Dose 50 MLS/HR; Start 08/09/16 at 17:30 Dopamine HCl/ Dextrose (D5W) 250 ml @ 1.71 mls/hr TITRATE IV Last administered on 08/11/16 15:07; Admin Dose 11.43 MLS/HR; Start 08/10/16 at 15:30 Acetaminophen (Tylenol Tab) 650 mg Q6H PRN PO PAIN AND OR ELEVATED TEMP Last administered on 08/12/16 00:54; Admin Dose 650 MG; Start 08/10/16 at 16:30 Clopidogrel Bisulfate 75 mg 75 mg DAILY PO Last administered on 08/12/16 09:10 ; Admin Dose 75 MG; Start 08/11/16 at 12:00 Phenylephrine HCl 160 mg/Dextrose 500 ml @ 18.75 mls/ hr TITRATE IV ; Start 03/20 at 06:00 Sodium Bicarbonate 50 meq/Dextrose/ Sodium Chloride 1,050 ml @ 125 mls/hr Q8H24M IV Last administered on 08/12/16 09:55; Admin Dose 125 MLS/HR; Start at 07:00 Albumin Human 100 ml @ 100 mls/hr Q8H IV Last administered on 4/11/17at 14:27 ; Admin Dose 100 MLS/HR; Start 08/12/16 at 07:00; Stop 08/12/16 at 23:59 Meropenem (Merrem 500 Mg/ 100 ml (Pmx)) 100 ml @ 200 mls/hr Q24H IVPB ; Start 08/13/16 at 09:00 Insulin Glargine 6 unit 6 unit DAILY@08 SC ; Start 08/13/16 at 08:00 Levofloxacin/ Dextrose 100 ml @ 100 mls/hr ONCE ONCE IVPB ; Start 08/12/16 at 17:30; Stop 08/12/16 at 18:29 Levofloxacin/ Dextrose (Levaquin 250 Mg/ D5W 50 ml (Pmx)) 50 ml @ 50 mls/hr Q48H IVPB ; Start 08/14/16 at 17:30 Procedures Procedures CXR 08/11/16: 1. There is again evidence of a previous right thoracotomy with the thoracostomy tube stable in positioning. 2. No pleural fluid accumulation or pneumothorax is presently evident but there continues week consolidation and volume loss to the right mid to lower lung zone. 3. Pacemaker and dual lead stable in positioning with evidence of a previous CABG. The cardiovascular silhouette is otherwise unremarkable except for atherosclerotic change involving the aorta. NORI JORGENSEN NP Aug 12, 2016 17:37
--- NOTE | 2016-08-12 18:30 | RADRPT ---
Vent Rate: 108 bpm RR Interval: 0 msec [place] Interval: 140 msec QRS Duration: 82 msec QT Interval: 386 msec QTC Interval: 517 msec P-R-T [place]: 86 - 22 - 92 degrees Sinus tachycardia Nonspecific ST and T wave abnormality Abnormal ECG Electronically Signed By: Gary Palma [id number]
[2016-08-12] MEDS: HYDROmorphONE 1 MG/ML SYG IV PRN (20:04)
[2016-08-12] MEDS: ATORVASTATIN 10 MG TAB PO SCH (20:04)
[2016-08-12] MEDS ORDERED: INSULIN GLARGINE [LANtus] 3 ML PEN SC SCH (21:00)
--- NOTE | 2016-08-12 21:57 | CONS ---
Date/Time of Note Date/Time of Note DATE: 08/12/16 TIME: 21:55 Assessment/Plan Assessment/Plan Chief Complaint/Hosp Course IMPRESSION: 1. Recurrent pleural effusions. s/p vats 2. Lung infiltrate./cavitary lesion 3. chronic lung disease. 4. Hypotension 5. Diabetes mellitus. 6. End-stage renal disease. 7. anemia. 8. cad. 9. hypotension 10. ashd 11. PLEURAL EFFUSIN 12. The patient on anti-tuberculosis treatment. 13. 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 14 dehydration PLAN per id and surg ctube care hd when bp stable iv fluid albumin Problems: Consultation Date/Type/Reason Admit Date/Time Jul 24, 2016 at 12:53 Initial Consult Date 07/25/16 Type of Consultation: renal Referring Provider: EVA COX MD 24 HR Interval Summary Constitutional: other (s/p hypotension on iv fluid) Exam/Review of Systems Vital Signs Vitals Vital Signs Date Time Temp Pulse Resp B/P Pulse Ox O2 Delivery O2 Flow Rate FiO2 08/12/16 20:00 78 08/12/16 18:30 16 125/52 95 Room Air 08/12/16 17:32 21 08/12/16 16:00 97.6 08/12/16 07:45 2.0 Intake and Output 08/11/16 08/11/16 08/12/16 15:00 23:00 07:00 Intake Total 1174.29 ml 2755.61 ml 1220.16 ml Output Total 2435 ml 1210 ml Balance 1174.29 ml 320.61 ml 10.16 ml Exam Neck: supple Respiratory: clear to auscultation Cardiovascular: regular rate and rhythm Gastrointestinal: bowel sounds (+), soft Extremities: No edema Results Result Diagram: 08/12/16 0400 08/12/16 0400 Results 24 hrs Laboratory Tests Test 08/12/16 04:00 08/12/16 09:01 08/12/16 12:02 08/12/16 17:53 White Blood Count 12.7 #H Red Blood Count 3.44 L Hemoglobin 11.0 L Hematocrit 31.9 L Mean Corpuscular Volume 92.7 Mean Corpuscular Hemoglobin 32.0 Mean Corpuscular Hemoglobin Concent 34.5 Red Cell Distribution Width 16.3 H Platelet Count 317 Mean Platelet Volume 9.8 Neutrophils % 90.2 H Lymphocytes % 2.5 L Monocytes % 5.9 Eosinophils % 0.2 Basophils % 0.1 Nucleated Red Blood Cells % 0.0 Neutrophils # 11.5 H Lymphocytes # 0.3 L Monocytes # 0.8 Eosinophils # 0.0 Basophils # 0.0 Nucleated Red Blood Cells # 0.0 Sodium Level 131 L Potassium Level 4.7 Chloride Level 101 Carbon Dioxide Level 18 L Anion Gap 17 #H Blood Urea Nitrogen 72 #H Creatinine 6.10 #H Glucose Level 205 Calcium Level 7.0 L Total Bilirubin 4.8 H Direct Bilirubin 3.80 #H Indirect Bilirubin 1.0 Aspartate Amino Transf (AST/SGOT) 70 #H Alanine Aminotransferase (ALT/SGPT) 23 Alkaline Phosphatase 131 H Total Protein 4.8 L Albumin 2.2 L Globulin 2.60 Albumin/Globulin Ratio 0.84 Bedside Glucose 192 265 H 314 H Test 08/12/16 20:10 Bedside Glucose 311 H Medications Medications Current Medications Aspirin (Halfprin) 81 mg DAILY PO Last administered on 08/12/16 09:10; Admin Dose 81 MG; Start 07/25/16 at 09:00; Status Future hold Atorvastatin Calcium (Lipitor) 10 mg QHS PO Last administered on 08/12/16 20: 04; Admin Dose 10 MG; Start 07/24/16 at 21:00 Cholecalciferol (Vitamin D) 400 units DAILY PO Last administered on 08/12/16 09:10; Admin Dose 400 UNITS; Start 07/25/16 at 09:00 Famotidine (Pepcid) 20 mg DAILY PO Last administered on 08/12/16 09:11; Admin Dose 20 MG; Start 07/25/16 at 09:00 Ferrous Sulfate (Ferrous Sulfate (Ec)) 325 mg BID PO Last administered on 20:04; Admin Dose 325 MG; Start 07/24/16 at 21:00 Acetaminophen/ Hydrocodone Bitart ([place] (5/325)) 1 tab Q4H PRN PO PAIN Last administered on 08/09/16 19:03; Admin Dose 1 TAB; Start 07/24/16 at 17:00 Isoniazid (Isoniazid) 300 mg DAILY PO Last administered on 08/12/16 09:09; Admin Dose 300 MG; Start 07/24/16 at 15:30 Pyridoxine HCl (Vitamin B6) 50 mg DAILY PO Last administered on 08/12/16 09:11 ; Admin Dose 50 MG; Start 07/25/16 at 09:00 Miscellaneous Information 1 ea NOTE XX ; Start 07/24/16 at 16:00 Glucose (Glutose) 15 gm Q15M PRN PO DECREASED GLUCOSE; Start 07/24/16 at 16:00 Glucose (Glutose) 22.5 gm Q15M PRN PO DECREASED GLUCOSE; Start 07/24/16 at 16: 00 Dextrose (D50w Syringe) 25 ml Q15M PRN IV DECREASED GLUCOSE; Start 07/24/16 at 16:00 Dextrose (D50w Syringe) 50 ml Q15M PRN IV DECREASED GLUCOSE; Start 07/24/16 at 16:00 Glucagon (Glucagen) 1 mg Q15M PRN IM DECREASED GLUCOSE; Start 07/24/16 at 16:00 Glucose (Glutose) 15 gm Q15M PRN BUCCAL DECREASED GLUCOSE; Start 07/24/16 at 16 :00 Ondansetron HCl (Zofran Inj) 4 mg Q4 PRN IV nausea Last administered on 22:43; Admin Dose 4 MG; Start 07/24/16 at 17:00 Metoclopramide HCl (Reglan) 5 mg Q4H PRN IV NAUSEA Last administered on 22:43; Admin Dose 5 MG; Start 07/24/16 at 22:30 Diagnostic Test (Pha) (Accu-Chek) 1 ea 02 XX Last administered on 08/11/16 01: 52; Admin Dose 1 EA; Start 07/26/16 at 12:00 Clonidine HCl (Catapres-Tts 2 Patch) 1 patch Q7D TRANSDERM Last administered on 08/03/16 06:32; Admin Dose 1 PATCH; Start 07/27/16 at 07:00; Status Future Hold Pantoprazole (Protonix Tab) 40 mg DAILY@06 PO Last administered on 08/12/16 06 :35; Admin Dose 40 MG; Start 07/28/16 at 06:00 Hydralazine HCl (Apresoline) 20 mg Q4 PRN IV ELEVATED BLOOD PRESSURE Last administered on 08/04/16 16:35; Admin Dose 20 MG; Start 07/28/16 at 02:00 Doxazosin Mesylate (Cardura) 2 mg HS PO Last administered on 08/05/16 21:57; Admin Dose 2 MG; Start 07/28/16 at 21:00; Status Future Hold Polyethylene Glycol (Miralax) 17 gm DAILY PRN GTB CONSTIPATION Last administered on 07/28/16 20:22; Admin Dose 17 GM; Start 07/28/16 at 19:30 Lorazepam (Ativan) 1 mg Q4H PRN IV anxiety Last administered on 07/30/16 20:48 ; Admin Dose 1 MG; Start 07/29/16 at 06:30 Ethambutol HCl (Myambutol) 900 mg TuThSa@20 PO Last administered on 08/09/16 21 :46; Admin Dose 900 MG; Start 07/31/16 at 20:00 Pyrazinamide (Pyrazinamide) 1,250 mg TuThSa@20 PO Last administered on 21:47; Admin Dose 1,250 MG; Start 07/31/16 at 20:00 Hydromorphone HCl (Dilaudid) 1 mg Q2H PRN IV pain Last administered on 20:04; Admin Dose 1 MG; Start 08/02/16 at 19:00 Hydralazine HCl (Apresoline) 25 mg Q8 PO Last administered on 08/06/16 05:44; Admin Dose 25 MG; Start 08/04/16 at 22:00; Status Future Hold Nifedipine (Procardia Xl) 30 mg BID PO ; Start 08/07/16 at 21:00; Status Future Hold Zolpidem Tartrate (Ambien) 5 mg HS PRN PO INSOMNIA Last administered on 00:11; Admin Dose 5 MG; Start 08/08/16 at 21:00 Benazepril HCl (Lotensin) 10 mg BID PO ; Start 08/09/16 at 09:00; Status Future Hold Metoprolol Tartrate 25 mg 25 mg BID GTB ; Start 08/09/16 at 21:00 Norepinephrine 16 mg/Dextrose 500 ml @ 1.87 mls/hr TITRATE IV Last administered on 08/12/16 14:38; Admin Dose 9.37 MLS/HR; Start 08/09/16 at 15:30 Caspofungin 50 mg/ Sodium Chloride 250 ml @ 250 mls/hr Q24H IVPB Last administered on 08/12/16 17:46; Admin Dose 250 MLS/HR; Start 08/10/16 at 17:00 Sodium Chloride 1,000 ml @ 50 mls/hr Q20H IV Last administered on 08/12/16 02 :05; Admin Dose 50 MLS/HR; Start 08/09/16 at 17:30 Dopamine HCl/ Dextrose (D5W) 250 ml @ 1.71 mls/hr TITRATE IV Last administered on 08/11/16 15:07; Admin Dose 11.43 MLS/HR; Start 08/10/16 at 15:30 Acetaminophen (Tylenol Tab) 650 mg Q6H PRN PO PAIN AND OR ELEVATED TEMP Last administered on 08/12/16 00:54; Admin Dose 650 MG; Start 08/10/16 at 16:30 Clopidogrel Bisulfate 75 mg 75 mg DAILY PO Last administered on 08/12/16 09:10 ; Admin Dose 75 MG; Start 08/11/16 at 12:00 Phenylephrine HCl 160 mg/Dextrose 500 ml @ 18.75 mls/ hr TITRATE IV ; Start 03/20 at 06:00 Sodium Bicarbonate 50 meq/Dextrose/ Sodium Chloride 1,050 ml @ 125 mls/hr Q8H24M IV Last administered on 08/12/16 17:47; Admin Dose 125 MLS/HR; Start at 07:00 Albumin Human 100 ml @ 100 mls/hr Q8H IV Last administered on 08/12/16 14:27 ; Admin Dose 100 MLS/HR; Start 08/12/16 at 07:00; Stop 08/12/16 at 23:59 Meropenem 100 ml @ 200 mls/hr Q24H IVPB ; Start 08/13/16 at 09:00 Levofloxacin/ Dextrose (Levaquin 250 Mg/ D5W 50 ml (Pmx)) 50 ml @ 50 mls/hr Q48H IVPB ; Start 08/14/16 at 17:30 Insulin Glargine (Lantus) 8 unit DAILY@20 SC ; Start 08/12/16 at 21:00 PAOLA MOODY MD Aug 12, 2016 21:57
[2016-08-13] VITALS (44 sets, daily range): BP systolic 84–140; BP diastolic 45–114; PULSE 74–100; RESP 12–25
[2016-08-13] MEDS: SOD CHLORIDE 0.9% 1,000 ML IV SCH ×2 (01:30→23:41)
[2016-08-13] MEDS: ONDANSETRON 4 MG INJ IV PRN ×2 (01:44→09:18)
[2016-08-13] MEDS ORDERED: ACCU-CHEK XX SCH (02:00)
[2016-08-13] MEDS: ACCUCHECK 2 AM XX SCH (02:33)
[2016-08-13] MEDS: SODIUM BICARBONATE (IV ADD) 50 MEQ in DEXTROSE 5%-0.45% NACL 1,000 ML IV SCH ×4 (02:33→22:46)
[2016-08-13 04:52] LABS: ADD SCAN DIFF NO
[2016-08-13 05:00] LABS: ABNORMAL IP MESSAGE 1; HEMATOCRIT 22.8 % (42.0-52.0); HEMOGLOBIN 7.5 g/dl (14.0-18.0); MEAN CORPUSCULAR HEMOGLOBIN 31.3 pg (29.0-33.0); MEAN CORPUSCULAR HGB CONC 32.9 g/dl (32.0-37.0); PLATELET COUNT 186 10^3/UL (140-415); RED CELL DISTRIBUTION WIDTH 17.2 % (11.5-14.5); WHITE BLOOD COUNT 10.4 10^3/ul (4.8-10.8)
[2016-08-13 05:25] LABS: ALBUMIN 2.6 g/dl (3.3-4.9); BILIRUBIN,DIRECT 3.5 mg/dl (0.00-0.20); BILIRUBIN,TOTAL 4.5 mg/dl (0.2-1.3); CALCIUM 6.3 mg/dl (8.4-10.2); CREATININE 6.62 mg/dl (0.61-1.24); POTASSIUM 4.5 mmol/L (3.5-5.1); TOTAL PROTEIN 4.5 g/dl (6.1-8.1)
[2016-08-13 05:26] LABS: ALBUMIN/GLOBULIN RATIO 1.36
[2016-08-13] MEDS: METOCLOPRAMIDE 10 MG INJ IV PRN ×2 (06:06→21:48)
[2016-08-13] MEDS: SEVELAMER CARBONATE 0.8 GM PKT PO SCH ×3 (07:35→17:35)
[2016-08-13] MEDS: INSULIN ASPART [NOVOLOG] 3 ML PEN SC SCH ×7 (07:35→21:00)
[2016-08-13] MEDS: CALCIUM ACETATE 667 MG CAP PO SCH ×3 (07:35→17:35)
[2016-08-13] MEDS ORDERED: INSULIN GLARGINE [LANtus] 3 ML PEN SC SCH (08:00)
[2016-08-13] MEDS: METOPROLOL 25 MG TAB GTB SCH ×2 (09:00→21:00)
[2016-08-13] MEDS: FAMOTIDINE 20 MG TAB PO SCH (09:05)
[2016-08-13] MEDS: ASPIRIN (EC) 81 MG TAB PO SCH (09:05)
[2016-08-13] MEDS: PANTOPRAZOLE (EC) 40 MG TAB PO SCH (09:05)
[2016-08-13] MEDS: CHOLECALCIFEROL 400 UNITS TAB PO SCH (09:05)
[2016-08-13] MEDS: PYRIDOXINE 50 MG TAB PO SCH (09:05)
[2016-08-13] MEDS: FERROUS SULFATE (EC) 325 MG TAB PO SCH ×2 (09:05→21:43)
[2016-08-13] MEDS: ISONIAZID 300 MG TAB PO SCH (09:05)
[2016-08-13 09:41] LABS: BURR CELLS OCCASIONAL; LYMPHOCYTES # 0.2 10^3/ul (0.8-2.9); MONOCYTE # 0.5 10^3/ul (0.3-0.9); NEUTROPHIL # 9.3 10^3/ul (1.6-7.5)
--- NOTE | 2016-08-13 10:31 | PN ---
Date/Time of Note Date/Time of Note DATE: 08/13/16 TIME: 10:30 Assessment/Plan Lines/Catheters IV Catheter Type (from [facility]): [place] Urinary Cath still in place: No Assessment/Plan Assessment/Plan - Recurrent right pleural effusion consistent with empyema, cavitary lesions, status post right thoracotomy and pulmonary decortication on 08/04. -Hemoptysis, resolved. Dr. Dale is following in pulmonology consultation. Dr. Caitlin balderas is following an infection disease consultation. -Right former chest tube site bleeding, resolved. Dr. Martinez is following in thoracic surgery consultation. -Anemia of acute blood loss, patient had bleeding from the right femoral catheter as well as chest tube site on admission, status post blood transfusion , continue to monitor hemoglobin and hematocrit. Dr. Martinez is following in hematology consultation. 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 - End-stage renal disease, continue hemodialysis. Dr. Saunders is following in nephrology consultation. - Diabetes mellitus type II, pre-meal NovoLog and NovoLog per mild algorithm sliding scale. - Hypertension. Dr. De Santiago is following and cardiology consultation. Continue benazepril metoprolol hydralazine Procardia - Coronary artery disease, status post coronary artery bypass graft, s/p percutaneous transluminal coronary angioplasty and stent placement to left main and left anterior descending in 2014. - Permanent pacemaker. No acute issues. - Dyslipidemia. Continue Lipitor. - Hyponatremia-per podiatrist assistant. Further recommendations based on clinical course. Plan of care discussed with Dr. Price. Further treatment depends upon patient's clinical course. Total critical care time spent 30 mins. Plan of care dw Dr Price/staff Subjective 24 Hr Interval Summary Constitutional: requiring IVF, requiring O2 ENT: no complaints Respiratory: shortness of breath Cardiovascular: no complaints Gastrointestinal: no complaints Genitourinary: no complaints Musculoskeletal: no complaints Exam/Review of Systems Vital Signs Vitals Vital Signs Date Time Temp Pulse Resp B/P Pulse Ox O2 Delivery O2 Flow Rate FiO2 08/13/16 10:24 94 08/13/16 09:36 13 08/13/16 08:15 108/57 99 Room Air 08/13/16 08:00 97.5 08/12/16 17:32 21 08/12/16 07:45 2.0 Intake and Output 08/12/16 08/12/16 08/13/16 15:00 23:00 07:00 Intake Total 1344.735 ml 1383.74 ml 748.74 ml Output Total 560 ml 1000 ml 1100 ml Balance 784.735 ml 383.74 ml -351.26 ml Exam Constitutional: alert, frail, oriented Psych: nl mood/affect Head: atraumatic Eyes: EOMI, PERRL, nl sclera ENMT: nl external ears & nose Respiratory: clear to auscultation Cardiovascular: nl pulses Gastrointestinal: non-tender, soft Musculoskeletal: nl extremities to inspection Neurological: nl mental status Skin: nl turgor Lymph: nl lymph nodes Results Result Diagram: 08/13/16 0410 08/13/16 0410 Results 24 hrs Laboratory Tests Test 08/12/16 12:02 08/12/16 17:53 08/12/16 20:10 08/12/16 22:50 Bedside Glucose 265 H 314 H 311 H 286 H Test 08/13/16 02:37 08/13/16 04:10 08/13/16 07:58 08/13/16 09:01 Bedside Glucose 303 H 376 H White Blood Count 10.4 Red Blood Count 2.40 #L Hemoglobin 7.5 #L Hematocrit 22.8 #L Mean Corpuscular Volume 95.0 Mean Corpuscular Hemoglobin 31.3 Mean Corpuscular Hemoglobin Concent 32.9 Red Cell Distribution Width 17.2 H Platelet Count 186 # Mean Platelet Volume 10.0 Neutrophils % 89.0 H Band Neutrophils % 4.0 Lymphocytes % 2.0 L Monocytes % 5.0 Nucleated Red Blood Cells % 1.0 H Neutrophils # 9.3 H Lymphocytes # 0.2 L Monocytes # 0.5 Sodium Level 129 L Potassium Level 4.5 Chloride Level 99 Carbon Dioxide Level 21 Anion Gap 14 Blood Urea Nitrogen 84 H Creatinine 6.62 H Glucose Level 307 H Calcium Level 6.3 L Total Bilirubin 4.5 H Direct Bilirubin 3.50 H Indirect Bilirubin 1.0 Aspartate Amino Transf (AST/SGOT) 35 Alanine Aminotransferase (ALT/SGPT) 16 Alkaline Phosphatase 76 Total Protein 4.5 L Albumin 2.6 L Globulin 1.90 Albumin/Globulin Ratio 1.36 Lab Scanned Report REFERENCE LAB Test 08/13/16 09:19 Lab Scanned Report REFERENCE LAB Medications Medications Current Medications Aspirin (Halfprin) 81 mg DAILY PO Last administered on 08/13/16 09:05; Admin Dose 81 MG; Start 07/25/16 at 09:00; Status Future hold Atorvastatin Calcium (Lipitor) 10 mg QHS PO Last administered on 08/12/16 20: 04; Admin Dose 10 MG; Start 07/24/16 at 21:00 Cholecalciferol (Vitamin D) 400 units DAILY PO Last administered on 08/13/16 09:05; Admin Dose 400 UNITS; Start 07/25/16 at 09:00 Famotidine (Pepcid) 20 mg DAILY PO Last administered on 08/13/16 09:05; Admin Dose 20 MG; Start 07/25/16 at 09:00 Ferrous Sulfate (Ferrous Sulfate (Ec)) 325 mg BID PO Last administered on 09:05; Admin Dose 325 MG; Start 07/24/16 at 21:00 Acetaminophen/ Hydrocodone Bitart ([place] (5/325)) 1 tab Q4H PRN PO PAIN Last administered on 08/09/16 19:03; Admin Dose 1 TAB; Start 07/24/16 at 17:00 Isoniazid (Isoniazid) 300 mg DAILY PO Last administered on 08/13/16 09:05; Admin Dose 300 MG; Start 07/24/16 at 15:30 Pyridoxine HCl (Vitamin B6) 50 mg DAILY PO Last administered on 08/13/16 09:05 ; Admin Dose 50 MG; Start 07/25/16 at 09:00 Miscellaneous Information 1 ea NOTE XX ; Start 07/24/16 at 16:00 Glucose (Glutose) 15 gm Q15M PRN PO DECREASED GLUCOSE; Start 07/24/16 at 16:00 Glucose (Glutose) 22.5 gm Q15M PRN PO DECREASED GLUCOSE; Start 07/24/16 at 16: 00 Dextrose (D50w Syringe) 25 ml Q15M PRN IV DECREASED GLUCOSE; Start 07/24/16 at 16:00 Dextrose (D50w Syringe) 50 ml Q15M PRN IV DECREASED GLUCOSE; Start 07/24/16 at 16:00 Glucagon (Glucagen) 1 mg Q15M PRN IM DECREASED GLUCOSE; Start 07/24/16 at 16:00 Glucose (Glutose) 15 gm Q15M PRN BUCCAL DECREASED GLUCOSE; Start 07/24/16 at 16 :00 Ondansetron HCl (Zofran Inj) 4 mg Q4 PRN IV nausea Last administered on 09:18; Admin Dose 4 MG; Start 07/24/16 at 17:00 Metoclopramide HCl (Reglan) 5 mg Q4H PRN IV NAUSEA Last administered on 06:06; Admin Dose 5 MG; Start 07/24/16 at 22:30 Diagnostic Test (Pha) (Accu-Chek) 1 ea 02 XX Last administered on 08/13/16 02: 33; Admin Dose 1 EA; Start 07/26/16 at 12:00 Clonidine HCl (Catapres-Tts 2 Patch) 1 patch Q7D TRANSDERM Last administered on 08/03/16 06:32; Admin Dose 1 PATCH; Start 07/27/16 at 07:00; Status Future Hold Pantoprazole (Protonix Tab) 40 mg DAILY@06 PO Last administered on 08/13/16 09 :05; Admin Dose 40 MG; Start 07/28/16 at 06:00 Hydralazine HCl (Apresoline) 20 mg Q4 PRN IV ELEVATED BLOOD PRESSURE Last administered on 08/04/16 16:35; Admin Dose 20 MG; Start 07/28/16 at 02:00 Doxazosin Mesylate (Cardura) 2 mg HS PO Last administered on 08/05/16 21:57; Admin Dose 2 MG; Start 07/28/16 at 21:00; Status Future Hold Polyethylene Glycol (Miralax) 17 gm DAILY PRN GTB CONSTIPATION Last administered on 07/28/16 20:22; Admin Dose 17 GM; Start 07/28/16 at 19:30 Lorazepam (Ativan) 1 mg Q4H PRN IV anxiety Last administered on 07/30/16 20:48 ; Admin Dose 1 MG; Start 07/29/16 at 06:30 Ethambutol HCl (Myambutol) 900 mg TuThSa@20 PO Last administered on 08/09/16 21 :46; Admin Dose 900 MG; Start 07/31/16 at 20:00 Pyrazinamide (Pyrazinamide) 1,250 mg TuThSa@20 PO Last administered on 21:47; Admin Dose 1,250 MG; Start 07/31/16 at 20:00 Hydromorphone HCl (Dilaudid) 1 mg Q2H PRN IV pain Last administered on 20:04; Admin Dose 1 MG; Start 08/02/16 at 19:00 Hydralazine HCl (Apresoline) 25 mg Q8 PO Last administered on 08/06/16 05:44; Admin Dose 25 MG; Start 08/04/16 at 22:00; Status Future Hold Nifedipine (Procardia Xl) 30 mg BID PO ; Start 08/07/16 at 21:00; Status Future Hold Zolpidem Tartrate (Ambien) 5 mg HS PRN PO INSOMNIA Last administered on 00:11; Admin Dose 5 MG; Start 08/08/16 at 21:00 Benazepril HCl (Lotensin) 10 mg BID PO ; Start 08/09/16 at 09:00; Status Future Hold Metoprolol Tartrate 25 mg 25 mg BID GTB ; Start 08/09/16 at 21:00 Norepinephrine 16 mg/Dextrose 500 ml @ 1.87 mls/hr TITRATE IV Last administered on 08/12/16 14:38; Admin Dose 9.37 MLS/HR; Start 08/09/16 at 15:30 Caspofungin 50 mg/ Sodium Chloride 250 ml @ 250 mls/hr Q24H IVPB Last administered on 08/12/16 17:46; Admin Dose 250 MLS/HR; Start 08/10/16 at 17:00 Sodium Chloride 1,000 ml @ 50 mls/hr Q20H IV Last administered on 08/12/16 02 :05; Admin Dose 50 MLS/HR; Start 08/09/16 at 17:30 Dopamine HCl/ Dextrose (D5W) 250 ml @ 1.71 mls/hr TITRATE IV Last administered on 08/11/16 15:07; Admin Dose 11.43 MLS/HR; Start 08/10/16 at 15:30 Acetaminophen (Tylenol Tab) 650 mg Q6H PRN PO PAIN AND OR ELEVATED TEMP Last administered on 08/12/16 00:54; Admin Dose 650 MG; Start 4/9/17 at 16:30 Clopidogrel Bisulfate 75 mg 75 mg DAILY PO Last administered on 08/12/16 09:10 ; Admin Dose 75 MG; Start 08/11/16 at 12:00 Phenylephrine HCl 160 mg/Dextrose 500 ml @ 18.75 mls/ hr TITRATE IV ; Start 03/20 at 06:00 Sodium Bicarbonate 50 meq/Dextrose/ Sodium Chloride 1,050 ml @ 125 mls/hr Q8H24M IV Last administered on 08/13/16 02:33; Admin Dose 125 MLS/HR; Start at 07:00 Meropenem 100 ml @ 200 mls/hr Q24H IVPB ; Start 08/13/16 at 09:00 Levofloxacin/ Dextrose (Levaquin 250 Mg/ D5W 50 ml (Pmx)) 50 ml @ 50 mls/hr Q48H IVPB ; Start 08/14/16 at 17:30 Insulin Glargine (Lantus) 8 unit DAILY@20 SC Last administered on 08/12/16 22: 52; Admin Dose 8 UNIT; Start 08/12/16 at 21:00 PATRICIA RUEDA Aug 13, 2016 10:31
--- NOTE | 2016-08-13 10:52 | CONS ---
Date/Time of Note Date/Time of Note DATE: 08/13/16 TIME: 10:50 Assessment/Plan Assessment/Plan Additional Assessment/Plan Assessment recommendations; next 1. 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 Status post VATS procedure patient however still having copious discharge to the right side chest tube. 2. Underlying other comorbidities including congestive heart failure, diabetes , hypertension. 3. Chronic renal failure, on hemodialysis. 5. Anemia. Continue current supportive care. Consultation Date/Type/Reason Admit Date/Time Jul 24, 2016 at 12:53 Initial Consult Date 07/25/16 Type of Consultation: Pulmonary/critical care Referring Provider: EVA COX MD 24 HR Interval Summary Free Text/Dictation Patient condition is stable now he is off pressor support. Remains awake and alert. Denies any shortness of breath, chest pain, fever chills. General exam; elderly male, currently in no distress awake and alert. Exam/Review of Systems Vital Signs Vitals Vital Signs Date Time Temp Pulse Resp B/P Pulse Ox O2 Delivery O2 Flow Rate FiO2 08/13/16 10:24 94 08/13/16 09:36 13 08/13/16 08:15 108/57 99 Room Air 08/13/16 08:00 97.5 08/12/16 17:32 21 08/12/16 07:45 2.0 Intake and Output 08/12/16 08/12/16 08/13/16 15:00 23:00 07:00 Intake Total 1344.735 ml 1383.74 ml 748.74 ml Output Total 560 ml 1000 ml 1100 ml Balance 784.735 ml 383.74 ml -351.26 ml Exam HEENT examined; supple neck, positive JVD. No lymphadenopathy. Midline trachea. No thyromegaly. Pupils are midsize reactive to light. Patient has fair dentition. Chest examination; diminished breath sounds right lower lobe. Right-sided chest tube in place. There is a well-healed sternal scar. Left lung is clear to auscultation. S1-S2 audible, no murmurs. Regular rhythm. Abdomen examination; soft, nondistended. No organomegaly. Bowel sounds audible. Extremity exam is; no peripheral edema. Pulses 1+ bilaterally. CONSOLE [employer]ENDANT examination; no focal deficit. Results Result Diagram: 08/13/16 0410 08/13/16 0410 Results 24 hrs Laboratory Tests Test 08/12/16 12:02 08/12/16 17:53 08/12/16 20:10 08/12/16 22:50 Bedside Glucose 265 H 314 H 311 H 286 H Test 08/13/16 02:37 08/13/16 04:10 08/13/16 07:58 08/13/16 09:01 Bedside Glucose 303 H 376 H White Blood Count 10.4 Red Blood Count 2.40 #L Hemoglobin 7.5 #L Hematocrit 22.8 #L Mean Corpuscular Volume 95.0 Mean Corpuscular Hemoglobin 31.3 Mean Corpuscular Hemoglobin Concent 32.9 Red Cell Distribution Width 17.2 H Platelet Count 186 # Mean Platelet Volume 10.0 Neutrophils % 89.0 H Band Neutrophils % 4.0 Lymphocytes % 2.0 L Monocytes % 5.0 Nucleated Red Blood Cells % 1.0 H Neutrophils # 9.3 H Lymphocytes # 0.2 L Monocytes # 0.5 Sodium Level 129 L Potassium Level 4.5 Chloride Level 99 Carbon Dioxide Level 21 Anion Gap 14 Blood Urea Nitrogen 84 H Creatinine 6.62 H Glucose Level 307 H Calcium Level 6.3 L Total Bilirubin 4.5 H Direct Bilirubin 3.50 H Indirect Bilirubin 1.0 Aspartate Amino Transf (AST/SGOT) 35 Alanine Aminotransferase (ALT/SGPT) 16 Alkaline Phosphatase 76 Total Protein 4.5 L Albumin 2.6 L Globulin 1.90 Albumin/Globulin Ratio 1.36 Lab Scanned Report REFERENCE LAB Test 08/13/16 09:19 Lab Scanned Report REFERENCE LAB Medications Medications Current Medications Aspirin (Halfprin) 81 mg DAILY PO Last administered on 08/13/16 09:05; Admin Dose 81 MG; Start 07/25/16 at 09:00; Status Future hold Atorvastatin Calcium (Lipitor) 10 mg QHS PO Last administered on 08/12/16 20: 04; Admin Dose 10 MG; Start 07/24/16 at 21:00 Cholecalciferol (Vitamin D) 400 units DAILY PO Last administered on 08/13/16 09:05; Admin Dose 400 UNITS; Start 07/25/16 at 09:00 Famotidine (Pepcid) 20 mg DAILY PO Last administered on 08/13/16 09:05; Admin Dose 20 MG; Start 07/25/16 at 09:00 Ferrous Sulfate (Ferrous Sulfate (Ec)) 325 mg BID PO Last administered on 09:05; Admin Dose 325 MG; Start 07/24/16 at 21:00 Acetaminophen/ Hydrocodone Bitart ([place] (5/325)) 1 tab Q4H PRN PO PAIN Last administered on 08/09/16 19:03; Admin Dose 1 TAB; Start 07/24/16 at 17:00 Isoniazid (Isoniazid) 300 mg DAILY PO Last administered on 08/13/16 09:05; Admin Dose 300 MG; Start 07/24/16 at 15:30 Pyridoxine HCl (Vitamin B6) 50 mg DAILY PO Last administered on 08/13/16 09:05 ; Admin Dose 50 MG; Start 07/25/16 at 09:00 Miscellaneous Information 1 ea NOTE XX ; Start 07/24/16 at 16:00 Glucose (Glutose) 15 gm Q15M PRN PO DECREASED GLUCOSE; Start 07/24/16 at 16:00 Glucose (Glutose) 22.5 gm Q15M PRN PO DECREASED GLUCOSE; Start 07/24/16 at 16: 00 Dextrose (D50w Syringe) 25 ml Q15M PRN IV DECREASED GLUCOSE; Start 07/24/16 at 16:00 Dextrose (D50w Syringe) 50 ml Q15M PRN IV DECREASED GLUCOSE; Start 07/24/16 at 16:00 Glucagon (Glucagen) 1 mg Q15M PRN IM DECREASED GLUCOSE; Start 07/24/16 at 16:00 Glucose (Glutose) 15 gm Q15M PRN BUCCAL DECREASED GLUCOSE; Start 07/24/16 at 16 :00 Ondansetron HCl (Zofran Inj) 4 mg Q4 PRN IV nausea Last administered on 09:18; Admin Dose 4 MG; Start 07/24/16 at 17:00 Metoclopramide HCl (Reglan) 5 mg Q4H PRN IV NAUSEA Last administered on 06:06; Admin Dose 5 MG; Start 07/24/16 at 22:30 Diagnostic Test (Pha) (Accu-Chek) 1 ea 02 XX Last administered on 08/13/16 02: 33; Admin Dose 1 EA; Start 07/26/16 at 12:00 Clonidine HCl (Catapres-Tts 2 Patch) 1 patch Q7D TRANSDERM Last administered on 08/03/16 06:32; Admin Dose 1 PATCH; Start 07/27/16 at 07:00; Status Future Hold Pantoprazole (Protonix Tab) 40 mg DAILY@06 PO Last administered on 08/13/16 09 :05; Admin Dose 40 MG; Start 07/28/16 at 06:00 Hydralazine HCl (Apresoline) 20 mg Q4 PRN IV ELEVATED BLOOD PRESSURE Last administered on 08/04/16 16:35; Admin Dose 20 MG; Start 07/28/16 at 02:00 Doxazosin Mesylate (Cardura) 2 mg HS PO Last administered on 08/05/16 21:57; Admin Dose 2 MG; Start 07/28/16 at 21:00; Status Future Hold Polyethylene Glycol (Miralax) 17 gm DAILY PRN GTB CONSTIPATION Last administered on 07/28/16 20:22; Admin Dose 17 GM; Start 07/28/16 at 19:30 Lorazepam (Ativan) 1 mg Q4H PRN IV anxiety Last administered on 07/30/16 20:48 ; Admin Dose 1 MG; Start 07/29/16 at 06:30 Ethambutol HCl (Myambutol) 900 mg TuThSa@20 PO Last administered on 08/09/16 21 :46; Admin Dose 900 MG; Start 07/31/16 at 20:00 Pyrazinamide (Pyrazinamide) 1,250 mg TuThSa@20 PO Last administered on 21:47; Admin Dose 1,250 MG; Start 07/31/16 at 20:00 Hydromorphone HCl (Dilaudid) 1 mg Q2H PRN IV pain Last administered on 20:04; Admin Dose 1 MG; Start 08/02/16 at 19:00 Hydralazine HCl (Apresoline) 25 mg Q8 PO Last administered on 08/06/16 05:44; Admin Dose 25 MG; Start 08/04/16 at 22:00; Status Future Hold Nifedipine (Procardia Xl) 30 mg BID PO ; Start 08/07/16 at 21:00; Status Future Hold Zolpidem Tartrate (Ambien) 5 mg HS PRN PO INSOMNIA Last administered on 00:11; Admin Dose 5 MG; Start 08/08/16 at 21:00 Benazepril HCl (Lotensin) 10 mg BID PO ; Start 08/09/16 at 09:00; Status Future Hold Metoprolol Tartrate 25 mg 25 mg BID GTB ; Start 08/09/16 at 21:00 Norepinephrine 16 mg/Dextrose 500 ml @ 1.87 mls/hr TITRATE IV Last administered on 08/12/16 14:38; Admin Dose 9.37 MLS/HR; Start 08/09/16 at 15:30 Caspofungin 50 mg/ Sodium Chloride 250 ml @ 250 mls/hr Q24H IVPB Last administered on 08/12/16 17:46; Admin Dose 250 MLS/HR; Start 08/10/16 at 17:00 Sodium Chloride 1,000 ml @ 50 mls/hr Q20H IV Last administered on 08/12/16 02 :05; Admin Dose 50 MLS/HR; Start 08/09/16 at 17:30 Dopamine HCl/ Dextrose (D5W) 250 ml @ 1.71 mls/hr TITRATE IV Last administered on 08/11/16 15:07; Admin Dose 11.43 MLS/HR; Start 08/10/16 at 15:30 Acetaminophen (Tylenol Tab) 650 mg Q6H PRN PO PAIN AND OR ELEVATED TEMP Last administered on 08/12/16 00:54; Admin Dose 650 MG; Start 08/10/16 at 16:30 Clopidogrel Bisulfate 75 mg 75 mg DAILY PO Last administered on 08/12/16 09:10 ; Admin Dose 75 MG; Start 08/11/16 at 12:00 Phenylephrine HCl 160 mg/Dextrose 500 ml @ 18.75 mls/ hr TITRATE IV ; Start 03/20 at 06:00 Sodium Bicarbonate 50 meq/Dextrose/ Sodium Chloride 1,050 ml @ 125 mls/hr Q8H24M IV Last administered on 08/13/16 02:33; Admin Dose 125 MLS/HR; Start at 07:00 Meropenem 100 ml @ 200 mls/hr Q24H IVPB ; Start 08/13/16 at 09:00 Levofloxacin/ Dextrose (Levaquin 250 Mg/ D5W 50 ml (Pmx)) 50 ml @ 50 mls/hr Q48H IVPB ; Start 08/14/16 at 17:30 Insulin Glargine (Lantus) 12 unit DAILY SC ; Start 08/13/16 at 11:00 BOONE POLO Aug 13, 2016 10:52
--- NOTE | 2016-08-13 12:15 | CONS ---
Date/Time of Note Date/Time of Note DATE: 08/13/16 TIME: 12:08 Assessment/Plan Assessment/Plan Chief Complaint/Hosp Course IMPRESSION: 1. Abnormal electrocardiogram, assess for acute coronary syndrome with recurrent chest pain now and recently negative stress test.-negative troponin x 3 2. History of a percutaneous transluminal coronary angioplasty and stent placement to left main and left anterior descending in 2014. 3. History of coronary artery bypass graft surgery. 4. Video assisted thoracoscopic surgery pleurodesis with leakage from the chest tube site.- now s/p repeat VATS/pleurodesis with CT with significant outpaut over the last 8 hours 5. Shortness of breath. 6. End-stage renal disease on hemodialysis. 7. Tuberculosis, on therapy. 8. Hypotension-improved off levo 9. Diabetes mellitus. 10. Dyslipidemia. 11. Anemia-acute worsening 12.Empyema/cavitary lesions by CT Recc: -Tele -Follow BP closely off of levo -Continue Plavix/asa as tolerated -HD for volume removal as tolerated only -continue TB treatment -Follow CT output closely with ongoing surgical eval -Continue abx's and f/u cx data -Continue statin -Continue broad spectrum abx's and f/u cx data closely Problems: Consultation Date/Type/Reason Admit Date/Time Jul 24, 2016 at 12:53 Initial Consult Date 07/24/16 Type of Consultation: Cardiology Reason for Consultation CHF Referring Provider: EVA COX MD Exam/Review of Systems Vital Signs Vitals Vital Signs Date Time Temp Pulse Resp B/P Pulse Ox O2 Delivery O2 Flow Rate FiO2 08/13/16 11:39 90 18 08/13/16 08:15 108/57 99 Room Air 08/13/16 08:00 97.5 08/12/16 17:32 21 08/12/16 07:45 2.0 Intake and Output 08/12/16 08/12/16 08/13/16 15:00 23:00 07:00 Intake Total 1344.735 ml 1383.74 ml 748.74 ml Output Total 560 ml 1000 ml 1100 ml Balance 784.735 ml 383.74 ml -351.26 ml Exam Review of Systems: CONSTITUTIONAL: No fevers, chills. PULMONARY: mild sob CARDIOVASCULAR: No chest pain/palpitations GASTROINTESTINAL: No nausea/vomiting. GENITOURINARY: No hematuria/dysuria. MUSCULOSKELETAL: No myagias/arthalgias. PSYCHIATRIC: The patient denies depression. NEUROLOGIC: lethargic Constitutional: alert, oriented Psych: no complaints Head: normocephalic ENMT: mucosa pink and moist Neck: jvd (9 cm water), supple Respiratory: diminished breath sounds (@ bases/b) Cardiovascular: regular rate and rhythm Gastrointestinal: non-tender, soft Musculoskeletal: muscle weakness (generalized) Extremities: edema (none) Neurological: other (No focal deficits) Results Result Diagram: 08/13/16 0410 08/13/16 0410 Results 24 hrs Laboratory Tests Test 08/12/16 17:53 08/12/16 20:10 08/12/16 22:50 08/13/16 02:37 Bedside Glucose 314 H 311 H 286 H 303 H Test 08/13/16 04:10 08/13/16 07:58 08/13/16 09:01 08/13/16 09:19 White Blood Count 10.4 Red Blood Count 2.40 #L Hemoglobin 7.5 #L Hematocrit 22.8 #L Mean Corpuscular Volume 95.0 Mean Corpuscular Hemoglobin 31.3 Mean Corpuscular Hemoglobin Concent 32.9 Red Cell Distribution Width 17.2 H Platelet Count 186 # Mean Platelet Volume 10.0 Neutrophils % 89.0 H Band Neutrophils % 4.0 Lymphocytes % 2.0 L Monocytes % 5.0 Nucleated Red Blood Cells % 1.0 H Neutrophils # 9.3 H Lymphocytes # 0.2 L Monocytes # 0.5 Sodium Level 129 L Potassium Level 4.5 Chloride Level 99 Carbon Dioxide Level 21 Anion Gap 14 Blood Urea Nitrogen 84 H Creatinine 6.62 H Glucose Level 307 H Calcium Level 6.3 L Total Bilirubin 4.5 H Direct Bilirubin 3.50 H Indirect Bilirubin 1.0 Aspartate Amino Transf (AST/SGOT) 35 Alanine Aminotransferase (ALT/SGPT) 16 Alkaline Phosphatase 76 Total Protein 4.5 L Albumin 2.6 L Globulin 1.90 Albumin/Globulin Ratio 1.36 Bedside Glucose 376 H Lab Scanned Report REFERENCE LAB REFERENCE LAB Test 08/13/16 11:54 Bedside Glucose 172 Medications Medications Current Medications Aspirin (Halfprin) 81 mg DAILY PO Last administered on 08/13/16t 09:05; Admin Dose 81 MG; Start 07/25/16 at 09:00; Status Future hold Atorvastatin Calcium (Lipitor) 10 mg QHS PO Last administered on 08/12/16 20: 04; Admin Dose 10 MG; Start 07/24/16 at 21:00 Cholecalciferol (Vitamin D) 400 units DAILY PO Last administered on 08/13/16 09:05; Admin Dose 400 UNITS; Start 07/25/16 at 09:00 Famotidine (Pepcid) 20 mg DAILY PO Last administered on 08/13/16 09:05; Admin Dose 20 MG; Start 07/25/16 at 09:00 Ferrous Sulfate (Ferrous Sulfate (Ec)) 325 mg BID PO Last administered on 09:05; Admin Dose 325 MG; Start 07/24/16 at 21:00 Acetaminophen/ Hydrocodone Bitart ([place] (5/325)) 1 tab Q4H PRN PO PAIN Last administered on 08/09/16 19:03; Admin Dose 1 TAB; Start 07/24/16 at 17:00 Isoniazid (Isoniazid) 300 mg DAILY PO Last administered on 08/13/16 09:05; Admin Dose 300 MG; Start 07/24/16 at 15:30 Pyridoxine HCl (Vitamin B6) 50 mg DAILY PO Last administered on 08/13/16 09:05 ; Admin Dose 50 MG; Start 07/25/16 at 09:00 Miscellaneous Information 1 ea NOTE XX ; Start 07/24/16 at 16:00 Glucose (Glutose) 15 gm Q15M PRN PO DECREASED GLUCOSE; Start 07/24/16 at 16:00 Glucose (Glutose) 22.5 gm Q15M PRN PO DECREASED GLUCOSE; Start 07/24/16 at 16: 00 Dextrose (D50w Syringe) 25 ml Q15M PRN IV DECREASED GLUCOSE; Start 07/24/16 at 16:00 Dextrose (D50w Syringe) 50 ml Q15M PRN IV DECREASED GLUCOSE; Start 07/24/16 at 16:00 Glucagon (Glucagen) 1 mg Q15M PRN IM DECREASED GLUCOSE; Start 07/24/16 at 16:00 Glucose (Glutose) 15 gm Q15M PRN BUCCAL DECREASED GLUCOSE; Start 07/24/16 at 16 :00 Ondansetron HCl (Zofran Inj) 4 mg Q4 PRN IV nausea Last administered on 09:18; Admin Dose 4 MG; Start 07/24/16 at 17:00 Metoclopramide HCl (Reglan) 5 mg Q4H PRN IV NAUSEA Last administered on 06:06; Admin Dose 5 MG; Start 07/24/16 at 22:30 Diagnostic Test (Pha) (Accu-Chek) 1 ea 02 XX Last administered on 08/13/16 02: 33; Admin Dose 1 EA; Start 07/26/16 at 12:00 Clonidine HCl (Catapres-Tts 2 Patch) 1 patch Q7D TRANSDERM Last administered on 08/03/16 06:32; Admin Dose 1 PATCH; Start 07/27/16 at 07:00; Status Future Hold Pantoprazole (Protonix Tab) 40 mg DAILY@06 PO Last administered on 08/13/16 09 :05; Admin Dose 40 MG; Start 07/28/16 at 06:00 Hydralazine HCl (Apresoline) 20 mg Q4 PRN IV ELEVATED BLOOD PRESSURE Last administered on 08/04/16 16:35; Admin Dose 20 MG; Start 07/28/16 at 02:00 Doxazosin Mesylate (Cardura) 2 mg HS PO Last administered on 08/05/16 21:57; Admin Dose 2 MG; Start 07/28/16 at 21:00; Status Future Hold Polyethylene Glycol (Miralax) 17 gm DAILY PRN GTB CONSTIPATION Last administered on 07/28/16 20:22; Admin Dose 17 GM; Start 07/28/16 at 19:30 Lorazepam (Ativan) 1 mg Q4H PRN IV anxiety Last administered on 07/30/16 20:48 ; Admin Dose 1 MG; Start 07/29/16 at 06:30 Ethambutol HCl (Myambutol) 900 mg TuThSa@20 PO Last administered on 08/09/16 21 :46; Admin Dose 900 MG; Start 07/31/16 at 20:00 Pyrazinamide (Pyrazinamide) 1,250 mg TuThSa@20 PO Last administered on 21:47; Admin Dose 1,250 MG; Start 07/31/16 at 20:00 Hydromorphone HCl (Dilaudid) 1 mg Q2H PRN IV pain Last administered on 20:04; Admin Dose 1 MG; Start 08/02/16 at 19:00 Hydralazine HCl (Apresoline) 25 mg Q8 PO Last administered on 08/06/16 05:44; Admin Dose 25 MG; Start 08/04/16 at 22:00; Status Future Hold Nifedipine (Procardia Xl) 30 mg BID PO ; Start 08/07/16 at 21:00; Status Future Hold Zolpidem Tartrate (Ambien) 5 mg HS PRN PO INSOMNIA Last administered on 00:11; Admin Dose 5 MG; Start 08/08/16 at 21:00 Benazepril HCl (Lotensin) 10 mg BID PO ; Start 08/09/16 at 09:00; Status Future Hold Metoprolol Tartrate 25 mg 25 mg BID GTB ; Start 08/09/16 at 21:00 Norepinephrine 16 mg/Dextrose 500 ml @ 1.87 mls/hr TITRATE IV Last administered on 08/12/16 14:38; Admin Dose 9.37 MLS/HR; Start 08/09/16 at 15:30 Caspofungin 50 mg/ Sodium Chloride 250 ml @ 250 mls/hr Q24H IVPB Last administered on 08/12/16 17:46; Admin Dose 250 MLS/HR; Start 08/10/16 at 17:00 Sodium Chloride 1,000 ml @ 50 mls/hr Q20H IV Last administered on 08/12/16 02 :05; Admin Dose 50 MLS/HR; Start 08/09/16 at 17:30 Dopamine HCl/ Dextrose (D5W) 250 ml @ 1.71 mls/hr TITRATE IV Last administered on 08/11/16 15:07; Admin Dose 11.43 MLS/HR; Start 08/10/16 at 15:30 Acetaminophen (Tylenol Tab) 650 mg Q6H PRN PO PAIN AND OR ELEVATED TEMP Last administered on 08/12/16 00:54; Admin Dose 650 MG; Start 08/10/16 at 16:30 Clopidogrel Bisulfate 75 mg 75 mg DAILY PO Last administered on 08/12/16 09:10 ; Admin Dose 75 MG; Start 08/11/16 at 12:00 Phenylephrine HCl 160 mg/Dextrose 500 ml @ 18.75 mls/ hr TITRATE IV ; Start 03/20 at 06:00 Sodium Bicarbonate 50 meq/Dextrose/ Sodium Chloride 1,050 ml @ 125 mls/hr Q8H24M IV Last administered on 08/13/16t 02:33; Admin Dose 125 MLS/HR; Start at 07:00 Meropenem 100 ml @ 200 mls/hr Q24H IVPB ; Start 08/13/16 at 09:00 Levofloxacin/ Dextrose (Levaquin 250 Mg/ D5W 50 ml (Pmx)) 50 ml @ 50 mls/hr Q48H IVPB ; Start 08/14/16 at 17:30 Insulin Glargine (Lantus) 12 unit DAILY SC ; Start 08/13/16 at 11:00 SHERITA SCOTT Aug 13, 2016 12:14
[2016-08-13] MEDS: MEROPENEM 500 MG/100 ML (PMX) 100 ML IVPB SCH (12:18)
[2016-08-13] MEDS: CLOPIDOGREL 75 MG TAB PO SCH (12:18)
[2016-08-13] MEDS: INSULIN GLARGINE [LANtus] 3 ML PEN SC SCH (12:22)
--- NOTE | 2016-08-13 15:15 | CONS ---
Date/Time of Note Date/Time of Note DATE: 08/13/16 TIME: 15:09 Assessment/Plan Assessment/Plan Chief Complaint/Hosp Course - possible tubercular empyema: R sided complex loculated air containing empyemas , visceral and parietal pleural calcifications. - a 35 mm lesion with possible cavitation in the anterior inferior RUL, possible recurrent tuberculosis - high risk for TB: history (originally from [facility], spends one month of each year in [facility], last in 09/2015), medical history (DM, ESRD), laboratory findings (positive quantiferon TB gold, granulomatous inflammation with focal necrosis on Bx of pleura) - AFB smear was negative x3, also M. tuberculosis DNA probe to the 1st sputum sample was undetectable in early 07/2016 - s/p first R VATS, total pulmonary decortication, R pleurodesis on 06/30/2016. Biopsy was negative for fungal stain and AFB stain (micro lab and pathology department), as well as malignancy. It showed granulomatous inflammation with focal necrosis and extensive hyalinization. - s/p second R VATS, decortication thoracotomy on 08/04/2016. Per Dr. Martinez, the tissue did not appear empyema. It was largely blood clots and tissue debris. Fluid was sent for cultures, but not tissue. Path showed blood and polarizable foreign material, no malignancy - sputum collected on 08/02/2016 was negative for mycobacterium tuberculosis DNA probe - h/o recurrent pleural effusion requiring thoracentesis approximately once a year, last performed in 04/2016 prior to this admission - positive quantiferon TB gold status of unknown duration. Per Pt, his past PPD was done in 2013, and was negative. 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 - DM s/p hypoglycemic episode on 08/04/16 & 08/06/16 (Hgb A1c 5.2% on 06/17/16 unreliable d/t recent blood transfusion; Hgb A1c 8.6% on 05/03/15) - ESRD on HD - CAD s/p CABG in 2010 and cardiac stent in 2013 - Moderate to severe protein calorie malnutrition - HIV screen negative in 07/2016 tested at [facility] - Sepsis vs SIRS - Hypotension requiring Levophed and Dopamine - Hyperbilirubinemia Recommendations - continue to f/u han cx (blood cx negative to date; sputum cx growing rik albicans), procalc, [id number] - continue empiric abx: vanco/jae/micafungin - pending: mycobacterium tuberculosis DNA probe to fluid in GUIDO bulb was sent on 08/06/2016 - cont. renally dosed Levaquin - continue renally dosed isoniazid, pyrazinamide, ethambutol and vitamin B6 supplement (07/12/2016-) - check cocci CF and crypto antigen in serum - Dr. Saunders at TB unit to send pleural biopsy to [facility] for more testing - check LFTs' weekly - consider repeat CT chest Problems: Consultation Date/Type/Reason Admit Date/Time Jul 24, 2016 at 12:53 Initial Consult Date 07/24/16 Type of Consultation: id Referring Provider: EVA COX MD Exam/Review of Systems Vital Signs Vitals Vital Signs Date Time Temp Pulse Resp B/P Pulse Ox O2 Delivery O2 Flow Rate FiO2 08/13/16 14:00 88 17 104/56 98 Room Air 08/13/16 12:00 98.3 08/12/16 17:32 21 08/12/16 07:45 2.0 Intake and Output 08/12/16 08/12/16 08/13/16 15:00 23:00 07:00 Intake Total 1344.735 ml 1483.74 ml 873.74 ml Output Total 560 ml 1000 ml 1100 ml Balance 784.735 ml 483.74 ml -226.26 ml Exam Constitutional: alert, oriented, well developed Psych: nl mood/affect, no complaints Head: atraumatic, normocephalic Eyes: EOMI, PERRL, nl conjunctiva, nl lids, nl sclera Neck: non-tender, supple Respiratory: diminished breath sounds Cardiovascular: regular rate and rhythm Gastrointestinal: nl liver, spleen, non-tender, soft Results Result Diagram: 08/13/16 0410 08/13/16 041 Results 24 hrs Laboratory Tests Test 08/12/16 17:53 08/12/16 20:10 08/12/16 22:50 08/13/16 02:37 Bedside Glucose 314 H 311 H 286 H 303 H Test 08/13/16 04:10 08/13/16 07:58 08/13/16 09:01 08/13/16 09:19 White Blood Count 10.4 Red Blood Count 2.40 #L Hemoglobin 7.5 #L Hematocrit 22.8 #L Mean Corpuscular Volume 95.0 Mean Corpuscular Hemoglobin 31.3 Mean Corpuscular Hemoglobin Concent 32.9 Red Cell Distribution Width 17.2 H Platelet Count 186 # Mean Platelet Volume 10.0 Neutrophils % 89.0 H Band Neutrophils % 4.0 Lymphocytes % 2.0 L Monocytes % 5.0 Nucleated Red Blood Cells % 1.0 H Neutrophils # 9.3 H Lymphocytes # 0.2 L Monocytes # 0.5 Sodium Level 129 L Potassium Level 4.5 Chloride Level 99 Carbon Dioxide Level 21 Anion Gap 14 Blood Urea Nitrogen 84 H Creatinine 6.62 H Glucose Level 307 H Calcium Level 6.3 L Total Bilirubin 4.5 H Direct Bilirubin 3.50 H Indirect Bilirubin 1.0 Aspartate Amino Transf (AST/SGOT) 35 Alanine Aminotransferase (ALT/SGPT) 16 Alkaline Phosphatase 76 Total Protein 4.5 L Albumin 2.6 L Globulin 1.90 Albumin/Globulin Ratio 1.36 Bedside Glucose 376 H Lab Scanned Report REFERENCE LAB REFERENCE LAB Test 08/13/16 11:54 Bedside Glucose 172 Medications Medications Current Medications Aspirin (Halfprin) 81 mg DAILY PO Last administered on 08/13/16 09:05; Admin Dose 81 MG; Start 07/25/16 at 09:00; Status Future hold Atorvastatin Calcium (Lipitor) 10 mg QHS PO Last administered on 08/12/16 20: 04; Admin Dose 10 MG; Start 07/24/16 at 21:00 Cholecalciferol (Vitamin D) 400 units DAILY PO Last administered on 08/13/16 09:05; Admin Dose 400 UNITS; Start 07/25/16 at 09:00 Famotidine (Pepcid) 20 mg DAILY PO Last administered on 08/13/16 09:05; Admin Dose 20 MG; Start 07/25/16 at 09:00 Ferrous Sulfate (Ferrous Sulfate (Ec)) 325 mg BID PO Last administered on 09:05; Admin Dose 325 MG; Start 07/24/16 at 21:00 Acetaminophen/ Hydrocodone Bitart ([place]ra (5/325)) 1 tab Q4H PRN PO PAIN Last administered on 08/09/16 19:03; Admin Dose 1 TAB; Start 07/24/16 at 17:00 Isoniazid (Isoniazid) 300 mg DAILY PO Last administered on 08/13/16 09:05; Admin Dose 300 MG; Start 07/24/16 at 15:30 Pyridoxine HCl (Vitamin B6) 50 mg DAILY PO Last administered on 08/13/16 09:05 ; Admin Dose 50 MG; Start 07/25/16 at 09:00 Miscellaneous Information 1 ea NOTE XX ; Start 07/24/16 at 16:00 Glucose (Glutose) 15 gm Q15M PRN PO DECREASED GLUCOSE; Start 07/24/16 at 16:00 Glucose (Glutose) 22.5 gm Q15M PRN PO DECREASED GLUCOSE; Start 07/24/16 at 16: 00 Dextrose (D50w Syringe) 25 ml Q15M PRN IV DECREASED GLUCOSE; Start 07/24/16 at 16:00 Dextrose (D50w Syringe) 50 ml Q15M PRN IV DECREASED GLUCOSE; Start 07/24/16 at 16:00 Glucagon (Glucagen) 1 mg Q15M PRN IM DECREASED GLUCOSE; Start 07/24/16 at 16:00 Glucose (Glutose) 15 gm Q15M PRN BUCCAL DECREASED GLUCOSE; Start 07/24/16 at 16 :00 Ondansetron HCl (Zofran Inj) 4 mg Q4 PRN IV nausea Last administered on 09:18; Admin Dose 4 MG; Start 07/24/16 at 17:00 Metoclopramide HCl (Reglan) 5 mg Q4H PRN IV NAUSEA Last administered on 06:06; Admin Dose 5 MG; Start 07/24/16 at 22:30 Diagnostic Test (Pha) (Accu-Chek) 1 ea 02 XX Last administered on 08/13/16 02: 33; Admin Dose 1 EA; Start 07/26/16 at 12:00 Clonidine HCl (Catapres-Tts 2 Patch) 1 patch Q7D TRANSDERM Last administered on 08/03/16 06:32; Admin Dose 1 PATCH; Start 07/27/16 at 07:00; Status Future Hold Pantoprazole (Protonix Tab) 40 mg DAILY@06 PO Last administered on 08/13/16 09 :05; Admin Dose 40 MG; Start 07/28/16 at 06:00 Hydralazine HCl (Apresoline) 20 mg Q4 PRN IV ELEVATED BLOOD PRESSURE Last administered on 08/04/16 16:35; Admin Dose 20 MG; Start 07/28/16 at 02:00 Doxazosin Mesylate (Cardura) 2 mg HS PO Last administered on 08/05/16 21:57; Admin Dose 2 MG; Start 07/28/16 at 21:00; Status Future Hold Polyethylene Glycol (Miralax) 17 gm DAILY PRN GTB CONSTIPATION Last administered on 07/28/16 20:22; Admin Dose 17 GM; Start 07/28/16 at 19:30 Lorazepam (Ativan) 1 mg Q4H PRN IV anxiety Last administered on 07/30/16 20:48 ; Admin Dose 1 MG; Start 07/29/16 at 06:30 Ethambutol HCl (Myambutol) 900 mg TuThSa@20 PO Last administered on 08/09/16 21 :46; Admin Dose 900 MG; Start 07/31/16 at 20:00 Pyrazinamide (Pyrazinamide) 1,250 mg TuThSa@20 PO Last administered on 21:47; Admin Dose 1,250 MG; Start 07/31/16 at 20:00 Hydromorphone HCl (Dilaudid) 1 mg Q2H PRN IV pain Last administered on 20:04; Admin Dose 1 MG; Start 08/02/16 at 19:00 Hydralazine HCl (Apresoline) 25 mg Q8 PO Last administered on 08/06/16 05:44; Admin Dose 25 MG; Start 08/04/16 at 22:00; Status Future Hold Nifedipine (Procardia Xl) 30 mg BID PO ; Start 08/07/16 at 21:00; Status Future Hold Zolpidem Tartrate (Ambien) 5 mg HS PRN PO INSOMNIA Last administered on 00:11; Admin Dose 5 MG; Start 08/08/16 at 21:00 Benazepril HCl (Lotensin) 10 mg BID PO ; Start 08/09/16 at 09:00; Status Future Hold Metoprolol Tartrate 25 mg 25 mg BID GTB ; Start 08/09/16 at 21:00 Norepinephrine 16 mg/Dextrose 500 ml @ 1.87 mls/hr TITRATE IV Last administered on 08/12/16 14:38; Admin Dose 9.37 MLS/HR; Start 08/09/16 at 15:30 Caspofungin 50 mg/ Sodium Chloride 250 ml @ 250 mls/hr Q24H IVPB Last administered on 08/12/16 17:46; Admin Dose 250 MLS/HR; Start 08/10/16 at 17:00 Sodium Chloride 1,000 ml @ 50 mls/hr Q20H IV Last administered on 08/12/16 02 :05; Admin Dose 50 MLS/HR; Start 08/09/16 at 17:30 Dopamine HCl/ Dextrose (D5W) 250 ml @ 1.71 mls/hr TITRATE IV Last administered on 08/11/16 15:07; Admin Dose 11.43 MLS/HR; Start 08/10/16 at 15:30 Acetaminophen (Tylenol Tab) 650 mg Q6H PRN PO PAIN AND OR ELEVATED TEMP Last administered on 08/12/16 00:54; Admin Dose 650 MG; Start 08/10/16 at 16:30 Clopidogrel Bisulfate 75 mg 75 mg DAILY PO Last administered on 08/13/16 12:18 ; Admin Dose 75 MG; Start 08/11/16 at 12:00 Phenylephrine HCl 160 mg/Dextrose 500 ml @ 18.75 mls/ hr TITRATE IV ; Start 03/20 at 06:00 Sodium Bicarbonate 50 meq/Dextrose/ Sodium Chloride 1,050 ml @ 125 mls/hr Q8H24M IV Last administered on 08/13/16 12:45; Admin Dose 125 MLS/HR; Start at 07:00 Meropenem 100 ml @ 200 mls/hr Q24H IVPB Last administered on 08/13/16 12:18; Admin Dose 200 MLS/HR; Start 08/13/16 at 09:00 Levofloxacin/ Dextrose (Levaquin 250 Mg/ D5W 50 ml (Pmx)) 50 ml @ 50 mls/hr Q48H IVPB ; Start 08/14/16 at 17:30 Insulin Glargine (Lantus) 12 unit DAILY SC Last administered on 08/13/16 12:22 ; Admin Dose 12 UNIT; Start 08/13/16 at 11:00 Miscellaneous Information (*Rx Drug Level Order Reminder*) VANCO RANDOM LEVEL... ONCE ONCE XX ; Start 08/14/16 at 05:00; Stop 08/14/16 at 05:01 BRENDA ISRAEL MD Aug 13, 2016 15:14
[2016-08-13 15:18] LABS: ADD SCAN DIFF NO
[2016-08-13 15:20] LABS: ABNORMAL IP MESSAGE 1; BASOPHILS % 0.1 % (0.0-2.0); EOSINOPHILS # 0.1 10^3/ul (0.0-0.5); EOSINOPHILS % 1.3 % (0.0-7.0); HEMATOCRIT 24.8 % (42.0-52.0); HEMOGLOBIN 8.6 g/dl (14.0-18.0); LYMPHOCYTES # 0.3 10^3/ul (0.8-2.9); LYMPHOCYTES % 3.6 % (15.0-51.0); MEAN CORPUSCULAR HEMOGLOBIN 32.5 pg (29.0-33.0); MEAN CORPUSCULAR HGB CONC 34.7 g/dl (32.0-37.0); MEAN CORPUSCULAR VOLUME 93.6 fl (82.0-101.0); MEAN PLATELET VOLUME 9.6 fl (7.4-10.4); MONOCYTE # 0.7 10^3/ul (0.3-0.9); MONOCYTES % 7.7 % (0.0-11.0); NEUTROPHIL # 8.2 10^3/ul (1.6-7.5); NEUTROPHILS % 86.3 % (39.0-77.0); PLATELET COUNT 141 10^3/UL (140-415); RED BLOOD COUNT 2.65 10^6/ul (4.70-6.10); RED CELL DISTRIBUTION WIDTH 17.5 % (11.5-14.5); WHITE BLOOD COUNT 9.5 10^3/ul (4.8-10.8)
[2016-08-13] MEDS: CASPOFUNGIN 50 MG in SOD CHLORIDE 0.9% 250 ML IVPB SCH (17:34)
--- NOTE | 2016-08-13 18:55 | PN ---
Date/Time of Note Date/Time of Note DATE: 08/13/16 TIME: 18:54 Assessment/Plan VTE Prophylaxis VTE Prophylaxis Intervention: other VTE Contraindication Reason: thrombocytopenia Lines/Catheters IV Catheter Type (from Nrs): SHWANA Central line still needed: No Urinary Cath still in place: No Assessment/Plan Chief Complaint/Hosp Course IMPRESSION: Right chest tube site bleeding, which has now subsided completely. Hgb stable Would monitor the hemoglobin levels and stop the antiplatelet. SP VATS Decortication CT output 2000cc will continue CT sxn may need pleurex cath Problems: Subjective 24 Hr Interval Summary Cardiovascular: no complaints Gastrointestinal: no complaints Genitourinary: no complaints Musculoskeletal: no complaints Skin: no complaints Exam/Review of Systems Vital Signs Vitals Vital Signs Date Time Temp Pulse Resp B/P Pulse Ox O2 Delivery O2 Flow Rate FiO2 08/13/16 18:00 91 19 112/67 100 Room Air 08/13/16 16:00 98.3 08/12/16 17:32 21 08/12/16 07:45 2.0 Intake and Output 08/12/16 08/12/16 08/13/16 15:00 23:00 07:00 Intake Total 1344.735 ml 1483.74 ml 873.74 ml Output Total 560 ml 1000 ml 1100 ml Balance 784.735 ml 483.74 ml -226.26 ml Exam ENMT: nl external ears & nose, nl lips & teeth, nl nasal mucosa & septum Neck: non-tender, supple Respiratory: clear to auscultation, normal air movement Cardiovascular: nl pulses, regular rate and rhythm Results Result Diagram: 08/13/16 1455 08/13/16 0410 Results 24 hrs Laboratory Tests Test 08/12/16 20:10 08/12/16 22:50 08/13/16 02:37 08/13/16 04:10 Bedside Glucose 311 H 286 H 303 H White Blood Count 10.4 Red Blood Count 2.40 #L Hemoglobin 7.5 #L Hematocrit 22.8 #L Mean Corpuscular Volume 95.0 Mean Corpuscular Hemoglobin 31.3 Mean Corpuscular Hemoglobin Concent 32.9 Red Cell Distribution Width 17.2 H Platelet Count 186 # Mean Platelet Volume 10.0 Neutrophils % 89.0 H Band Neutrophils % 4.0 Lymphocytes % 2.0 L Monocytes % 5.0 Nucleated Red Blood Cells % 1.0 H Neutrophils # 9.3 H Lymphocytes # 0.2 L Monocytes # 0.5 Sodium Level 129 L Potassium Level 4.5 Chloride Level 99 Carbon Dioxide Level 21 Anion Gap 14 Blood Urea Nitrogen 84 H Creatinine 6.62 H Glucose Level 307 H Calcium Level 6.3 L Total Bilirubin 4.5 H Direct Bilirubin 3.50 H Indirect Bilirubin 1.0 Aspartate Amino Transf (AST/SGOT) 35 Alanine Aminotransferase (ALT/SGPT) 16 Alkaline Phosphatase 76 Total Protein 4.5 L Albumin 2.6 L Globulin 1.90 Albumin/Globulin Ratio 1.36 Test 08/13/16 07:58 08/13/16 09:01 08/13/16 09:19 08/13/16 11:54 Bedside Glucose 376 H 172 Lab Scanned Report REFERENCE LAB REFERENCE LAB Test 08/13/16 14:55 08/13/16 17:36 White Blood Count 9.5 Red Blood Count 2.65 L Hemoglobin 8.6 L Hematocrit 24.8 L Mean Corpuscular Volume 93.6 Mean Corpuscular Hemoglobin 32.5 Mean Corpuscular Hemoglobin Concent 34.7 Red Cell Distribution Width 17.5 H Platelet Count 141 # Mean Platelet Volume 9.6 Neutrophils % 86.3 H Lymphocytes % 3.6 L Monocytes % 7.7 Eosinophils % 1.3 Basophils % 0.1 Nucleated Red Blood Cells % 0.0 Neutrophils # 8.2 H Lymphocytes # 0.3 L Monocytes # 0.7 Eosinophils # 0.1 Basophils # 0.0 Nucleated Red Blood Cells # 0.0 Bedside Glucose 106 Medications Medications Current Medications Aspirin (Halfprin) 81 mg DAILY PO Last administered on 08/13/16 09:05; Admin Dose 81 MG; Start 07/25/16 at 09:00; Status Future hold Atorvastatin Calcium (Lipitor) 10 mg QHS PO Last administered on 08/12/16 20: 04; Admin Dose 10 MG; Start 07/24/16 at 21:00 Cholecalciferol (Vitamin D) 400 units DAILY PO Last administered on 08/13/16 09:05; Admin Dose 400 UNITS; Start 07/25/16 at 09:00 Famotidine (Pepcid) 20 mg DAILY PO Last administered on 08/13/16 09:05; Admin Dose 20 MG; Start 07/25/16 at 09:00 Ferrous Sulfate (Ferrous Sulfate (Ec)) 325 mg BID PO Last administered on 09:05; Admin Dose 325 MG; Start 07/24/16 at 21:00 Acetaminophen/ Hydrocodone Bitart ([place] (5/325)) 1 tab Q4H PRN PO PAIN Last administered on 08/09/16 19:03; Admin Dose 1 TAB; Start 07/24/16 at 17:00 Isoniazid (Isoniazid) 300 mg DAILY PO Last administered on 08/13/16 09:05; Admin Dose 300 MG; Start 07/24/16 at 15:30 Pyridoxine HCl (Vitamin B6) 50 mg DAILY PO Last administered on 08/13/16 09:05 ; Admin Dose 50 MG; Start 07/25/16 at 09:00 Miscellaneous Information 1 ea NOTE XX ; Start 07/24/16 at 16:00 Glucose (Glutose) 15 gm Q15M PRN PO DECREASED GLUCOSE; Start 07/24/16 at 16:00 Glucose (Glutose) 22.5 gm Q15M PRN PO DECREASED GLUCOSE; Start 07/24/16 at 16: 00 Dextrose (D50w Syringe) 25 ml Q15M PRN IV DECREASED GLUCOSE; Start 07/24/16 at 16:00 Dextrose (D50w Syringe) 50 ml Q15M PRN IV DECREASED GLUCOSE; Start 07/24/16 at 16:00 Glucagon (Glucagen) 1 mg Q15M PRN IM DECREASED GLUCOSE; Start 07/24/16 at 16:00 Glucose (Glutose) 15 gm Q15M PRN BUCCAL DECREASED GLUCOSE; Start 07/24/16 at 16 :00 Ondansetron HCl (Zofran Inj) 4 mg Q4 PRN IV nausea Last administered on 09:18; Admin Dose 4 MG; Start 07/24/16 at 17:00 Metoclopramide HCl (Reglan) 5 mg Q4H PRN IV NAUSEA Last administered on 06:06; Admin Dose 5 MG; Start 07/24/16 at 22:30 Diagnostic Test (Pha) (Accu-Chek) 1 ea 02 XX Last administered on 08/13/16 02: 33; Admin Dose 1 EA; Start 07/26/16 at 12:00 Clonidine HCl (Catapres-Tts 2 Patch) 1 patch Q7D TRANSDERM Last administered on 08/03/16 06:32; Admin Dose 1 PATCH; Start 07/27/16 at 07:00; Status Future Hold Pantoprazole (Protonix Tab) 40 mg DAILY@06 PO Last administered on 08/13/16 09 :05; Admin Dose 40 MG; Start 07/28/16 at 06:00 Hydralazine HCl (Apresoline) 20 mg Q4 PRN IV ELEVATED BLOOD PRESSURE Last administered on 08/04/16 16:35; Admin Dose 20 MG; Start 07/28/16 at 02:00 Doxazosin Mesylate (Cardura) 2 mg HS PO Last administered on 08/05/16 21:57; Admin Dose 2 MG; Start 07/28/16 at 21:00; Status Future Hold Polyethylene Glycol (Miralax) 17 gm DAILY PRN GTB CONSTIPATION Last administered on 07/28/16 20:22; Admin Dose 17 GM; Start 07/28/16 at 19:30 Lorazepam (Ativan) 1 mg Q4H PRN IV anxiety Last administered on 07/30/16 20:48 ; Admin Dose 1 MG; Start 07/29/16 at 06:30 Ethambutol HCl (Myambutol) 900 mg TuThSa@20 PO Last administered on 08/09/16 21 :46; Admin Dose 900 MG; Start 07/31/16 at 20:00 Pyrazinamide (Pyrazinamide) 1,250 mg TuThSa@20 PO Last administered on 21:47; Admin Dose 1,250 MG; Start 07/31/16 at 20:00 Hydromorphone HCl (Dilaudid) 1 mg Q2H PRN IV pain Last administered on 20:04; Admin Dose 1 MG; Start 08/02/16 at 19:00 Hydralazine HCl (Apresoline) 25 mg Q8 PO Last administered on 08/06/16 05:44; Admin Dose 25 MG; Start 08/04/16 at 22:00; Status Future Hold Nifedipine (Procardia Xl) 30 mg BID PO ; Start 08/07/16 at 21:00; Status Future Hold Zolpidem Tartrate (Ambien) 5 mg HS PRN PO INSOMNIA Last administered on 00:11; Admin Dose 5 MG; Start 08/08/16 at 21:00 Benazepril HCl (Lotensin) 10 mg BID PO ; Start 08/09/16 at 09:00; Status Future Hold Metoprolol Tartrate 25 mg 25 mg BID GTB ; Start 08/09/16 at 21:00 Norepinephrine 16 mg/Dextrose 500 ml @ 1.87 mls/hr TITRATE IV Last administered on 08/12/16 14:38; Admin Dose 9.37 MLS/HR; Start 08/09/16 at 15:30 Caspofungin 50 mg/ Sodium Chloride 250 ml @ 250 mls/hr Q24H IVPB Last administered on 08/13/16 17:34; Admin Dose 250 MLS/HR; Start 08/10/16 at 17:00 Sodium Chloride 1,000 ml @ 50 mls/hr Q20H IV Last administered on 08/12/16 02 :05; Admin Dose 50 MLS/HR; Start 08/09/16 at 17:30 Dopamine HCl/ Dextrose (D5W) 250 ml @ 1.71 mls/hr TITRATE IV Last administered on 08/11/16 15:07; Admin Dose 11.43 MLS/HR; Start 08/10/16 at 15:30 Acetaminophen (Tylenol Tab) 650 mg Q6H PRN PO PAIN AND OR ELEVATED TEMP Last administered on 08/12/16 00:54; Admin Dose 650 MG; Start 08/10/16 at 16:30 Clopidogrel Bisulfate 75 mg 75 mg DAILY PO Last administered on 08/13/16 12:18 ; Admin Dose 75 MG; Start 08/11/16 at 12:00 Phenylephrine HCl 160 mg/Dextrose 500 ml @ 18.75 mls/ hr TITRATE IV ; Start 03/20 at 06:00 Sodium Bicarbonate 50 meq/Dextrose/ Sodium Chloride 1,050 ml @ 125 mls/hr Q8H24M IV Last administered on 08/13/16 12:45; Admin Dose 125 MLS/HR; Start at 07:00 Meropenem 100 ml @ 200 mls/hr Q24H IVPB Last administered on 08/13/16 12:18; Admin Dose 200 MLS/HR; Start 08/13/16 at 09:00 Levofloxacin/ Dextrose (Levaquin 250 Mg/ D5W 50 ml (Pmx)) 50 ml @ 50 mls/hr Q48H IVPB ; Start 08/14/16 at 17:30 Insulin Glargine (Lantus) 12 unit DAILY SC Last administered on 08/13/16t 12:22 ; Admin Dose 12 UNIT; Start 08/13/16 at 11:00 Miscellaneous Information (*Rx Drug Level Order Reminder*) VANCO RANDOM LEVEL... ONCE ONCE XX ; Start 08/14/16 at 05:00; Stop 08/14/16 at 05:01 LILIA FELIZ MD Aug 13, 2016 18:55
--- NOTE | 2016-08-13 19:29 | CONS ---
Date/Time of Note Date/Time of Note DATE: 08/13/16 TIME: 19:28 Assessment/Plan Assessment/Plan Chief Complaint/Hosp Course IMPRESSION: 1. Recurrent pleural effusions. s/p vats 2. Lung infiltrate./cavitary lesion 3. chronic lung disease. 4. Hypotension better 5. Diabetes mellitus. 6. End-stage renal disease. 7. anemia. 8. cad. 9. hypotension 10. ashd 11. PLEURAL EFFUSIN 12. The patient on anti-tuberculosis treatment. 13. 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 14 dehydration better PLAN per id and surg ctube care hd when iv fluid albumin Problems: Consultation Date/Type/Reason Admit Date/Time Jul 24, 2016 at 12:53 Initial Consult Date 07/25/16 Type of Consultation: renal Referring Provider: EVA COX MD 24 HR Interval Summary Constitutional: no complaints, other (on hd) Exam/Review of Systems Vital Signs Vitals Vital Signs Date Time Temp Pulse Resp B/P Pulse Ox O2 Delivery O2 Flow Rate FiO2 08/13/16 18:00 91 19 112/67 100 Room Air 08/13/16 16:00 98.3 08/12/16 17:32 21 08/12/16 07:45 2.0 Intake and Output 08/12/16 08/12/16 08/13/16 15:00 23:00 07:00 Intake Total 1344.735 ml 1483.74 ml 873.74 ml Output Total 560 ml 1000 ml 1100 ml Balance 784.735 ml 483.74 ml -226.26 ml Exam Respiratory: diminished breath sounds Cardiovascular: regular rate and rhythm Gastrointestinal: non-tender, soft Extremities: No edema Results Result Diagram: 08/13/16 1455 08/13/16 0410 Results 24 hrs Laboratory Tests Test 08/12/16 20:10 08/12/16 22:50 08/13/16 02:37 08/13/16 04:10 Bedside Glucose 311 H 286 H 303 H White Blood Count 10.4 Red Blood Count 2.40 #L Hemoglobin 7.5 #L Hematocrit 22.8 #L Mean Corpuscular Volume 95.0 Mean Corpuscular Hemoglobin 31.3 Mean Corpuscular Hemoglobin Concent 32.9 Red Cell Distribution Width 17.2 H Platelet Count 186 # Mean Platelet Volume 10.0 Neutrophils % 89.0 H Band Neutrophils % 4.0 Lymphocytes % 2.0 L Monocytes % 5.0 Nucleated Red Blood Cells % 1.0 H Neutrophils # 9.3 H Lymphocytes # 0.2 L Monocytes # 0.5 Sodium Level 129 L Potassium Level 4.5 Chloride Level 99 Carbon Dioxide Level 21 Anion Gap 14 Blood Urea Nitrogen 84 H Creatinine 6.62 H Glucose Level 307 H Calcium Level 6.3 L Total Bilirubin 4.5 H Direct Bilirubin 3.50 H Indirect Bilirubin 1.0 Aspartate Amino Transf (AST/SGOT) 35 Alanine Aminotransferase (ALT/SGPT) 16 Alkaline Phosphatase 76 Total Protein 4.5 L Albumin 2.6 L Globulin 1.90 Albumin/Globulin Ratio 1.36 Test 08/13/16 07:58 08/13/16 09:01 08/13/16 09:19 08/13/16 11:54 Bedside Glucose 376 H 172 Lab Scanned Report REFERENCE LAB REFERENCE LAB Test 08/13/16 14:55 08/13/16 17:36 White Blood Count 9.5 Red Blood Count 2.65 L Hemoglobin 8.6 L Hematocrit 24.8 L Mean Corpuscular Volume 93.6 Mean Corpuscular Hemoglobin 32.5 Mean Corpuscular Hemoglobin Concent 34.7 Red Cell Distribution Width 17.5 H Platelet Count 141 # Mean Platelet Volume 9.6 Neutrophils % 86.3 H Lymphocytes % 3.6 L Monocytes % 7.7 Eosinophils % 1.3 Basophils % 0.1 Nucleated Red Blood Cells % 0.0 Neutrophils # 8.2 H Lymphocytes # 0.3 L Monocytes # 0.7 Eosinophils # 0.1 Basophils # 0.0 Nucleated Red Blood Cells # 0.0 Bedside Glucose 106 Medications Medications Current Medications Aspirin (Halfprin) 81 mg DAILY PO Last administered on 08/13/16 09:05; Admin Dose 81 MG; Start 07/25/16 at 09:00; Status Future hold Atorvastatin Calcium (Lipitor) 10 mg QHS PO Last administered on 08/12/16 20: 04; Admin Dose 10 MG; Start 07/24/16 at 21:00 Cholecalciferol (Vitamin D) 400 units DAILY PO Last administered on 08/13/16 09:05; Admin Dose 400 UNITS; Start 07/25/16 at 09:00 Famotidine (Pepcid) 20 mg DAILY PO Last administered on 08/13/16 09:05; Admin Dose 20 MG; Start 07/25/16 at 09:00 Ferrous Sulfate (Ferrous Sulfate (Ec)) 325 mg BID PO Last administered on 09:05; Admin Dose 325 MG; Start 07/24/16 at 21:00 Acetaminophen/ Hydrocodone Bitart ([place] (5/325)) 1 tab Q4H PRN PO PAIN Last administered on 08/09/16 19:03; Admin Dose 1 TAB; Start 07/24/16 at 17:00 Isoniazid (Isoniazid) 300 mg DAILY PO Last administered on 08/13/16 09:05; Admin Dose 300 MG; Start 07/24/16 at 15:30 Pyridoxine HCl (Vitamin B6) 50 mg DAILY PO Last administered on 08/13/16 09:05 ; Admin Dose 50 MG; Start 07/25/16 at 09:00 Miscellaneous Information 1 ea NOTE XX ; Start 07/24/16 at 16:00 Glucose (Glutose) 15 gm Q15M PRN PO DECREASED GLUCOSE; Start 07/24/16 at 16:00 Glucose (Glutose) 22.5 gm Q15M PRN PO DECREASED GLUCOSE; Start 07/24/16 at 16: 00 Dextrose (D50w Syringe) 25 ml Q15M PRN IV DECREASED GLUCOSE; Start 07/24/16 at 16:00 Dextrose (D50w Syringe) 50 ml Q15M PRN IV DECREASED GLUCOSE; Start 07/24/16 at 16:00 Glucagon (Glucagen) 1 mg Q15M PRN IM DECREASED GLUCOSE; Start 07/24/16 at 16:00 Glucose (Glutose) 15 gm Q15M PRN BUCCAL DECREASED GLUCOSE; Start 07/24/16 at 16 :00 Ondansetron HCl (Zofran Inj) 4 mg Q4 PRN IV nausea Last administered on 09:18; Admin Dose 4 MG; Start 07/24/16 at 17:00 Metoclopramide HCl (Reglan) 5 mg Q4H PRN IV NAUSEA Last administered on 06:06; Admin Dose 5 MG; Start 07/24/16 at 22:30 Diagnostic Test (Pha) (Accu-Chek) 1 ea 02 XX Last administered on 08/13/16 02: 33; Admin Dose 1 EA; Start 07/26/16 at 12:00 Clonidine HCl (Catapres-Tts 2 Patch) 1 patch Q7D TRANSDERM Last administered on 08/03/16 06:32; Admin Dose 1 PATCH; Start 07/27/16 at 07:00; Status Future Hold Pantoprazole (Protonix Tab) 40 mg DAILY@06 PO Last administered on 08/13/16 09 :05; Admin Dose 40 MG; Start 07/28/16 at 06:00 Hydralazine HCl (Apresoline) 20 mg Q4 PRN IV ELEVATED BLOOD PRESSURE Last administered on 08/04/16 16:35; Admin Dose 20 MG; Start 07/28/16 at 02:00 Doxazosin Mesylate (Cardura) 2 mg HS PO Last administered on 08/05/16 21:57; Admin Dose 2 MG; Start 07/28/16 at 21:00; Status Future Hold Polyethylene Glycol (Miralax) 17 gm DAILY PRN GTB CONSTIPATION Last administered on 07/28/16 20:22; Admin Dose 17 GM; Start 07/28/16 at 19:30 Lorazepam (Ativan) 1 mg Q4H PRN IV anxiety Last administered on 07/30/16 20:48 ; Admin Dose 1 MG; Start 07/29/16 at 06:30 Ethambutol HCl (Myambutol) 900 mg TuThSa@20 PO Last administered on 08/09/16 21 :46; Admin Dose 900 MG; Start 07/31/16 at 20:00 Pyrazinamide (Pyrazinamide) 1,250 mg TuThSa@20 PO Last administered on 21:47; Admin Dose 1,250 MG; Start 07/31/16 at 20:00 Hydromorphone HCl (Dilaudid) 1 mg Q2H PRN IV pain Last administered on 20:04; Admin Dose 1 MG; Start 08/02/16 at 19:00 Hydralazine HCl (Apresoline) 25 mg Q8 PO Last administered on 08/06/16 05:44; Admin Dose 25 MG; Start 08/04/16 at 22:00; Status Future Hold Nifedipine (Procardia Xl) 30 mg BID PO ; Start 08/07/16 at 21:00; Status Future Hold Zolpidem Tartrate (Ambien) 5 mg HS PRN PO INSOMNIA Last administered on 00:11; Admin Dose 5 MG; Start 08/08/16 at 21:00 Benazepril HCl (Lotensin) 10 mg BID PO ; Start 08/09/16 at 09:00; Status Future Hold Metoprolol Tartrate 25 mg 25 mg BID GTB ; Start 08/09/16 at 21:00 Norepinephrine 16 mg/Dextrose 500 ml @ 1.87 mls/hr TITRATE IV Last administered on 08/12/16 14:38; Admin Dose 9.37 MLS/HR; Start 08/09/16 at 15:30 Caspofungin 50 mg/ Sodium Chloride 250 ml @ 250 mls/hr Q24H IVPB Last administered on 08/13/16 17:34; Admin Dose 250 MLS/HR; Start 08/10/16 at 17:00 Sodium Chloride 1,000 ml @ 50 mls/hr Q20H IV Last administered on 08/12/16 02 :05; Admin Dose 50 MLS/HR; Start 08/09/16 at 17:30 Dopamine HCl/ Dextrose (D5W) 250 ml @ 1.71 mls/hr TITRATE IV Last administered on 08/11/16 15:07; Admin Dose 11.43 MLS/HR; Start 08/10/16 at 15:30 Acetaminophen (Tylenol Tab) 650 mg Q6H PRN PO PAIN AND OR ELEVATED TEMP Last administered on 08/12/16 00:54; Admin Dose 650 MG; Start 08/10/16 at 16:30 Clopidogrel Bisulfate 75 mg 75 mg DAILY PO Last administered on 08/13/16 12:18 ; Admin Dose 75 MG; Start 08/11/16 at 12:00 Phenylephrine HCl 160 mg/Dextrose 500 ml @ 18.75 mls/ hr TITRATE IV ; Start 03/20 at 06:00 Sodium Bicarbonate 50 meq/Dextrose/ Sodium Chloride 1,050 ml @ 125 mls/hr Q8H24M IV Last administered on 08/13/16 12:45; Admin Dose 125 MLS/HR; Start at 07:00 Meropenem 100 ml @ 200 mls/hr Q24H IVPB Last administered on 08/13/16 12:18; Admin Dose 200 MLS/HR; Start 08/13/16 at 09:00 Levofloxacin/ Dextrose (Levaquin 250 Mg/ D5W 50 ml (Pmx)) 50 ml @ 50 mls/hr Q48H IVPB ; Start 08/14/16 at 17:30 Insulin Glargine (Lantus) 12 unit DAILY SC Last administered on 08/13/16t 12:22 ; Admin Dose 12 UNIT; Start 08/13/16 at 11:00 Miscellaneous Information (*Rx Drug Level Order Reminder*) VANCO RANDOM LEVEL... ONCE ONCE XX ; Start 08/14/16 at 05:00; Stop 08/14/16 at 05:01 PAOLA MOODY MD Aug 13, 2016 19:29
[2016-08-13] MEDS: ETHAMBUTOL 400 MG TAB PO SCH (21:41)
[2016-08-13] MEDS: ATORVASTATIN 10 MG TAB PO SCH (21:43)
[2016-08-13] MEDS: PYRAZINAMIDE 500 MG TAB PO SCH (21:44)
[2016-08-14] VITALS (60 sets, daily range): BP systolic 64–138; BP diastolic 46–76; PULSE 86–130; RESP 11–30
[2016-08-14] MEDS: ACCUCHECK 2 AM XX SCH (02:00)
[2016-08-14 06:31] LABS: CREATININE 4.56 mg/dl (0.61-1.24)
[2016-08-14] MEDS: PANTOPRAZOLE (EC) 40 MG TAB PO SCH (06:33)
[2016-08-14 06:44] LABS: CALCIUM 5.5 mg/dl (8.4-10.2)
[2016-08-14] MEDS ORDERED: ALTEPLASE (CATHFLO) 2 MG INJ CATHETER ONE (08:30)
--- NOTE | 2016-08-14 08:38 | CONS ---
Date/Time of Note Date/Time of Note DATE: 08/14/16 TIME: 08:36 Assessment/Plan Assessment/Plan Additional Assessment/Plan Assessment recommendations; 1. 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 Status post VATS procedure, patient still having copious discharge daily. 2. End-stage renal disease on hemodialysis. 3. History of diabetes and hypertension. 5. History of coronary artery disease, status post bypass surgery in the past. 6. Hypotension with interval resolution. Patient off pressor support. 7. Anemia. Continue current supportive care. Patient can be transferred to telemetry unit. Consultation Date/Type/Reason Admit Date/Time Jul 24, 2016 at 12:53 Initial Consult Date 07/25/16 Type of Consultation: Pulmonary/critical care Referring Provider: EVA COX MD 24 HR Interval Summary Free Text/Dictation Patient condition is stable. Is off pressor support. Denies any shortness of breath, chest pain, fever chills. Denies any sputum production. General exam; elderly male, awake alert currently in no distress. Exam/Review of Systems Vital Signs Vitals Vital Signs Date Time Temp Pulse Resp B/P Pulse Ox O2 Delivery O2 Flow Rate FiO2 08/14/16 08:00 88 08/14/16 06:30 14 88/60 99 Room Air 08/14/16 04:16 21 08/14/16 00:00 98.4 08/12/16 07:45 2.0 Intake and Output 08/13/16 08/13/16 08/14/16 15:00 23:00 07:00 Intake Total 1860 ml 1100 ml 1050 ml Output Total 2150 ml 700 ml 1400 ml Balance -290 ml 400 ml -350 ml Exam HEENT examination; supple neck, no JVD. No lymphadenopathy. Midline trachea. No thyromegaly. Chest examination; right side chest tube in place. Still draining significant fluid. There is a well-healed sternal scar. Diminished breath sounds left lower lobe. S1-S2 audible, no murmurs. Regular rhythm. Abdomen exam is; soft, nontender. No organomegaly. Bowel sounds audible. Extremity exam is; no peripheral edema. Pulses 1+ bilaterally. [employer]ATING [employer] examination; no focal deficit. Results Result Diagram: 08/13/16 1455 08/14/16 0600 Results 24 hrs Laboratory Tests Test 08/13/16 09:01 08/13/16 09:19 08/13/16 11:54 08/13/16 14:55 Lab Scanned Report REFERENCE LAB REFERENCE LAB Bedside Glucose 172 White Blood Count 9.5 Red Blood Count 2.65 L Hemoglobin 8.6 L Hematocrit 24.8 L Mean Corpuscular Volume 93.6 Mean Corpuscular Hemoglobin 32.5 Mean Corpuscular Hemoglobin Concent 34.7 Red Cell Distribution Width 17.5 H Platelet Count 141 # Mean Platelet Volume 9.6 Neutrophils % 86.3 H Lymphocytes % 3.6 L Monocytes % 7.7 Eosinophils % 1.3 Basophils % 0.1 Nucleated Red Blood Cells % 0.0 Neutrophils # 8.2 H Lymphocytes # 0.3 L Monocytes # 0.7 Eosinophils # 0.1 Basophils # 0.0 Nucleated Red Blood Cells # 0.0 Test 08/13/16 17:36 08/13/16 21:43 08/14/16 06:00 Bedside Glucose 106 98 Sodium Level 128 L Potassium Level 4.0 Chloride Level 100 Carbon Dioxide Level 24 Anion Gap 8 Blood Urea Nitrogen 56 H Creatinine 4.56 #H Glucose Level 158 # Calcium Level 5.5 *L Random Vancomycin Level 12.4 Medications Medications Current Medications Aspirin (Halfprin) 81 mg DAILY PO Last administered on 08/13/16 09:05; Admin Dose 81 MG; Start 07/25/16 at 09:00; Status Future hold Atorvastatin Calcium (Lipitor) 10 mg QHS PO Last administered on 08/13/16 21: 43; Admin Dose 10 MG; Start 07/24/16 at 21:00 Cholecalciferol (Vitamin D) 400 units DAILY PO Last administered on 08/13/16 09:05; Admin Dose 400 UNITS; Start 07/25/16 at 09:00 Famotidine (Pepcid) 20 mg DAILY PO Last administered on 08/13/16 09:05; Admin Dose 20 MG; Start 07/25/16 at 09:00 Ferrous Sulfate (Ferrous Sulfate (Ec)) 325 mg BID PO Last administered on 21:43; Admin Dose 325 MG; Start 07/24/16 at 21:00 Acetaminophen/ Hydrocodone Bitart ([place] (5/325)) 1 tab Q4H PRN PO PAIN Last administered on 08/09/16 19:03; Admin Dose 1 TAB; Start 07/24/16 at 17:00 Isoniazid (Isoniazid) 300 mg DAILY PO Last administered on 08/13/16 09:05; Admin Dose 300 MG; Start 07/24/16 at 15:30 Pyridoxine HCl (Vitamin B6) 50 mg DAILY PO Last administered on 08/13/16 09:05 ; Admin Dose 50 MG; Start 07/25/16 at 09:00 Miscellaneous Information 1 ea NOTE XX ; Start 07/24/16 at 16:00 Glucose (Glutose) 15 gm Q15M PRN PO DECREASED GLUCOSE; Start 07/24/16 at 16:00 Glucose (Glutose) 22.5 gm Q15M PRN PO DECREASED GLUCOSE; Start 07/24/16 at 16: 00 Dextrose (D50w Syringe) 25 ml Q15M PRN IV DECREASED GLUCOSE; Start 07/24/16 at 16:00 Dextrose (D50w Syringe) 50 ml Q15M PRN IV DECREASED GLUCOSE; Start 07/24/16 at 16:00 Glucagon (Glucagen) 1 mg Q15M PRN IM DECREASED GLUCOSE; Start 07/24/16 at 16:00 Glucose (Glutose) 15 gm Q15M PRN BUCCAL DECREASED GLUCOSE; Start 07/24/16 at 16 :00 Ondansetron HCl (Zofran Inj) 4 mg Q4 PRN IV nausea Last administered on 09:18; Admin Dose 4 MG; Start 07/24/16 at 17:00 Metoclopramide HCl (Reglan) 5 mg Q4H PRN IV NAUSEA Last administered on 21:48; Admin Dose 5 MG; Start 07/24/16 at 22:30 Diagnostic Test (Pha) (Accu-Chek) 1 ea 02 XX Last administered on 08/13/16 02: 33; Admin Dose 1 EA; Start 07/26/16 at 12:00 Clonidine HCl (Catapres-Tts 2 Patch) 1 patch Q7D TRANSDERM Last administered on 08/03/16 06:32; Admin Dose 1 PATCH; Start 07/27/16 at 07:00; Status Future Hold Pantoprazole (Protonix Tab) 40 mg DAILY@06 PO Last administered on 08/14/16 06 :33; Admin Dose 40 MG; Start 07/28/16 at 06:00 Hydralazine HCl (Apresoline) 20 mg Q4 PRN IV ELEVATED BLOOD PRESSURE Last administered on 08/04/16 16:35; Admin Dose 20 MG; Start 07/28/16 at 02:00 Doxazosin Mesylate (Cardura) 2 mg HS PO Last administered on 08/05/16 21:57; Admin Dose 2 MG; Start 07/28/16 at 21:00; Status Future Hold Polyethylene Glycol (Miralax) 17 gm DAILY PRN GTB CONSTIPATION Last administered on 07/28/16 20:22; Admin Dose 17 GM; Start 07/28/16 at 19:30 Lorazepam (Ativan) 1 mg Q4H PRN IV anxiety Last administered on 07/30/16 20:48 ; Admin Dose 1 MG; Start 07/29/16 at 06:30 Ethambutol HCl (Myambutol) 900 mg TuThSa@20 PO Last administered on 08/13/16 21:41; Admin Dose 900 MG; Start 07/31/16 at 20:00 Pyrazinamide (Pyrazinamide) 1,250 mg TuThSa@20 PO Last administered on 21:44; Admin Dose 1,250 MG; Start 07/31/16 at 20:00 Hydromorphone HCl (Dilaudid) 1 mg Q2H PRN IV pain Last administered on 20:04; Admin Dose 1 MG; Start 08/02/16 at 19:00 Hydralazine HCl (Apresoline) 25 mg Q8 PO Last administered on 08/06/16 05:44; Admin Dose 25 MG; Start 08/04/16 at 22:00; Status Future Hold Nifedipine (Procardia Xl) 30 mg BID PO ; Start 08/07/16 at 21:00; Status Future Hold Zolpidem Tartrate (Ambien) 5 mg HS PRN PO INSOMNIA Last administered on 00:11; Admin Dose 5 MG; Start 08/08/16 at 21:00 Benazepril HCl (Lotensin) 10 mg BID PO ; Start 08/09/16 at 09:00; Status Future Hold Metoprolol Tartrate 25 mg 25 mg BID GTB ; Start 08/09/16 at 21:00 Norepinephrine 16 mg/Dextrose 500 ml @ 1.87 mls/hr TITRATE IV Last administered on 08/12/16 14:38; Admin Dose 9.37 MLS/HR; Start 08/09/16 at 15:30 Caspofungin 50 mg/ Sodium Chloride 250 ml @ 250 mls/hr Q24H IVPB Last administered on 08/13/16 17:34; Admin Dose 250 MLS/HR; Start 08/10/16 at 17:00 Sodium Chloride 1,000 ml @ 50 mls/hr Q20H IV Last administered on 08/12/16 02 :05; Admin Dose 50 MLS/HR; Start 08/09/16 at 17:30 Dopamine HCl/ Dextrose (D5W) 250 ml @ 1.71 mls/hr TITRATE IV Last administered on 08/11/16 15:07; Admin Dose 11.43 MLS/HR; Start 08/10/16 at 15:30 Acetaminophen (Tylenol Tab) 650 mg Q6H PRN PO PAIN AND OR ELEVATED TEMP Last administered on 08/12/16 00:54; Admin Dose 650 MG; Start 08/10/16 at 16:30 Clopidogrel Bisulfate 75 mg 75 mg DAILY PO Last administered on 08/13/16 12:18 ; Admin Dose 75 MG; Start 08/11/16 at 12:00 Phenylephrine HCl 160 mg/Dextrose 500 ml @ 18.75 mls/ hr TITRATE IV ; Start 03/20 at 06:00 Sodium Bicarbonate 50 meq/Dextrose/ Sodium Chloride 1,050 ml @ 125 mls/hr Q8H24M IV Last administered on 08/13/16 22:46; Admin Dose 125 MLS/HR; Start at 07:00 Meropenem 100 ml @ 200 mls/hr Q24H IVPB Last administered on 08/13/16 12:18; Admin Dose 200 MLS/HR; Start 08/13/16 at 09:00 Levofloxacin/ Dextrose (Levaquin 250 Mg/ D5W 50 ml (Pmx)) 50 ml @ 50 mls/hr Q48H IVPB ; Start 08/14/16 at 17:30 Insulin Glargine (Lantus) 12 unit DAILY SC Last administered on 08/13/16 12:22 ; Admin Dose 12 UNIT; Start 08/13/16 at 11:00 Epoetin Tutu 3000 units 3,000 units TuThSa@17 SC ; Start 08/14/16 at 17:00 Calcium Gluconate/ Sodium Chloride (Ca Gluc/NS) 110 ml @ 110 mls/hr Q1H IVPB ; Start 08/14/16 at 09:00; Stop 08/14/16 at 10:59 Epoetin Tutu (Epogen (Esrd)) 2,000 units TuThSa@17 SC ; Start 08/14/16 at 17:00 BOONE POLO Aug 14, 2016 08:38
[2016-08-14] MEDS: METOPROLOL 25 MG TAB GTB SCH ×2 (09:00→20:42)
[2016-08-14] MEDS: HYDROmorphONE 1 MG/ML SYG IV PRN ×2 (09:50→16:40)
[2016-08-14] MEDS: METOCLOPRAMIDE 10 MG INJ IV PRN ×2 (09:50→16:40)
[2016-08-14] MEDS: CALCIUM GLUCONATE 10% 1 GM in SOD CHLORIDE 0.9% 100 ML IVPB SCH ×2 (09:50→12:29)
[2016-08-14] MEDS: SEVELAMER CARBONATE 0.8 GM PKT PO SCH ×2 (09:51→12:35)
[2016-08-14] MEDS: CALCIUM ACETATE 667 MG CAP PO SCH ×2 (09:51→12:35)
[2016-08-14] MEDS: INSULIN ASPART [NOVOLOG] 3 ML PEN SC SCH ×7 (09:51→20:42)
[2016-08-14] MEDS: CHOLECALCIFEROL 400 UNITS TAB PO SCH (09:52)
[2016-08-14] MEDS: ISONIAZID 300 MG TAB PO SCH (09:52)
[2016-08-14] MEDS: PYRIDOXINE 50 MG TAB PO SCH (09:52)
[2016-08-14] MEDS: CLOPIDOGREL 75 MG TAB PO SCH (09:52)
[2016-08-14] MEDS: SODIUM BICARBONATE (IV ADD) 50 MEQ in DEXTROSE 5%-0.45% NACL 1,000 ML IV SCH ×2 (09:53→17:48)
[2016-08-14] MEDS: FAMOTIDINE 20 MG TAB PO SCH (09:53)
[2016-08-14] MEDS: FERROUS SULFATE (EC) 325 MG TAB PO SCH ×2 (09:53→20:42)
[2016-08-14] MEDS: INSULIN GLARGINE [LANtus] 3 ML PEN SC SCH (10:01)
--- NOTE | 2016-08-14 10:19 | PN ---
Date/Time of Note Date/Time of Note DATE: 08/14/16 TIME: 10:10 Assessment/Plan VTE Prophylaxis VTE Prophylaxis Intervention: other Lines/Catheters IV [facility] [place] Urinary Cath still in place: No Assessment/Plan Assessment/Plan - Recurrent right pleural effusion consistent with empyema, cavitary lesions, status post right thoracotomy and pulmonary decortication on 08/04. -Hemoptysis, resolved. Dr. Dale is following in pulmonology consultation. Dr. Caitlin balderas is following an infection disease consultation. -Right former chest tube site bleeding, resolved. Dr. Martinez is following in thoracic surgery consultation. -Anemia of acute blood loss, patient had bleeding from the right femoral catheter as well as chest tube site on admission, status post blood transfusion , continue to monitor hemoglobin and hematocrit. Dr. Martinez is following in hematology consultation. 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 - End-stage renal disease, continue hemodialysis. Dr. Saunders is following in nephrology consultation. - Diabetes mellitus type II -Glycemic control - Hypotension. - per Dr. De Santiago in cardiology consultation. - cardaic drugs optimized by Dr De Santiago - restarted on Levophed - NS BOLUS 250 ccx1 - albumin IV - Coronary artery disease, status post coronary artery bypass graft, s/p percutaneous transluminal coronary angioplasty and stent placement to left main and left anterior descending in 2014. - Permanent pacemaker. No acute issues. - Dyslipidemia. Continue Lipitor. 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 - Malnutrition- dw dr Saunders.started on TPN today. Further recommendations based on clinical course. Plan of care discussed with Dr. Price. Further treatment depends upon patient's clinical course. Total critical care time spent 30 mins. Plan of care priti Price/staff Subjective 24 Hr Interval Summary Constitutional: improved Eyes: no complaints ENT: no complaints Respiratory: other, shortness of breath (getting better ) Cardiovascular: no complaints Gastrointestinal: no complaints Genitourinary: no complaints Musculoskeletal: no complaints Skin: no complaints Neurologic: no complaints Endocrine: no complaints Lymphatic: no complaints Immunologic: no complaints Exam/Review of Systems Vital Signs Vitals Vital Signs Date Time Temp Pulse Resp B/P Pulse Ox O2 Delivery O2 Flow Rate FiO2 4/13/17 08:00 88 08/14/16 06:30 14 88/60 99 Room Air 08/14/16 04:16 21 08/14/16 00:00 98.4 08/12/16 07:45 2.0 Intake and Output 08/13/16 08/13/16 08/14/16 15:00 23:00 07:00 Intake Total 1860 ml 1100 ml 1050 ml Output Total 2150 ml 700 ml 1400 ml Balance -290 ml 400 ml -350 ml Exam Constitutional: alert, oriented, well developed Psych: nl mood/affect Head: atraumatic Eyes: EOMI, PERRL, nl sclera ENMT: nl external ears & nose Neck: non-tender Respiratory: diminished breath sounds Cardiovascular: nl pulses Gastrointestinal: non-tender, soft Musculoskeletal: nl extremities to inspection Extremities: normal pulses Neurological: nl mental status, nl speech Skin: other Lymph: nontender Results Result Diagram: 08/13/16 1455 08/14/16 0600 Results 24 hrs Laboratory Tests Test 08/13/16 11:54 08/13/16 14:55 08/13/16 17:36 08/13/16 21:43 Bedside Glucose 172 106 98 White Blood Count 9.5 Red Blood Count 2.65 L Hemoglobin 8.6 L Hematocrit 24.8 L Mean Corpuscular Volume 93.6 Mean Corpuscular Hemoglobin 32.5 Mean Corpuscular Hemoglobin Concent 34.7 Red Cell Distribution Width 17.5 H Platelet Count 141 # Mean Platelet Volume 9.6 Neutrophils % 86.3 H Lymphocytes % 3.6 L Monocytes % 7.7 Eosinophils % 1.3 Basophils % 0.1 Nucleated Red Blood Cells % 0.0 Neutrophils # 8.2 H Lymphocytes # 0.3 L Monocytes # 0.7 Eosinophils # 0.1 Basophils # 0.0 Nucleated Red Blood Cells # 0.0 Test 08/14/16 06:00 08/14/16 09:58 Sodium Level 128 L Potassium Level 4.0 Chloride Level 100 Carbon Dioxide Level 24 Anion Gap 8 Blood Urea Nitrogen 56 H Creatinine 4.56 #H Glucose Level 158 # Calcium Level 5.5 *L Random Vancomycin Level 12.4 Bedside Glucose 199 Medications Medications Current Medications Aspirin (Halfprin) 81 mg DAILY PO Last administered on 08/13/16t 09:05; Admin Dose 81 MG; Start 07/25/16 at 09:00; Status Future hold Atorvastatin Calcium (Lipitor) 10 mg QHS PO Last administered on 08/13/16 21: 43; Admin Dose 10 MG; Start 07/24/16 at 21:00 Cholecalciferol (Vitamin D) 400 units DAILY PO Last administered on 08/14/16 09:52; Admin Dose 400 UNITS; Start 07/25/16 at 09:00 Famotidine (Pepcid) 20 mg DAILY PO Last administered on 08/14/16 09:53; Admin Dose 20 MG; Start 07/25/16 at 09:00 Ferrous Sulfate (Ferrous Sulfate (Ec)) 325 mg BID PO Last administered on 09:53; Admin Dose 325 MG; Start 07/24/16 at 21:00 Acetaminophen/ Hydrocodone Bitart ([place] (5/325)) 1 tab Q4H PRN PO PAIN Last administered on 08/09/16 19:03; Admin Dose 1 TAB; Start 07/24/16 at 17:00 Isoniazid (Isoniazid) 300 mg DAILY PO Last administered on 08/14/16 09:52; Admin Dose 300 MG; Start 07/24/16 at 15:30 Pyridoxine HCl (Vitamin B6) 50 mg DAILY PO Last administered on 08/14/16 09:52 ; Admin Dose 50 MG; Start 07/25/16 at 09:00 Miscellaneous Information 1 ea NOTE XX ; Start 07/24/16 at 16:00 Glucose (Glutose) 15 gm Q15M PRN PO DECREASED GLUCOSE; Start 07/24/16 at 16:00 Glucose (Glutose) 22.5 gm Q15M PRN PO DECREASED GLUCOSE; Start 07/24/16 at 16: 00 Dextrose (D50w Syringe) 25 ml Q15M PRN IV DECREASED GLUCOSE; Start 07/24/16 at 16:00 Dextrose (D50w Syringe) 50 ml Q15M PRN IV DECREASED GLUCOSE; Start 07/24/16 at 16:00 Glucagon (Glucagen) 1 mg Q15M PRN IM DECREASED GLUCOSE; Start 07/24/16 at 16:00 Glucose (Glutose) 15 gm Q15M PRN BUCCAL DECREASED GLUCOSE; Start 07/24/16 at 16 :00 Ondansetron HCl (Zofran Inj) 4 mg Q4 PRN IV nausea Last administered on 09:18; Admin Dose 4 MG; Start 07/24/16 at 17:00 Metoclopramide HCl (Reglan) 5 mg Q4H PRN IV NAUSEA Last administered on 09:50; Admin Dose 5 MG; Start 07/24/16 at 22:30 Diagnostic Test (Pha) (Accu-Chek) 1 ea 02 XX Last administered on 08/13/16 02: 33; Admin Dose 1 EA; Start 07/26/16 at 12:00 Clonidine HCl (Catapres-Tts 2 Patch) 1 patch Q7D TRANSDERM Last administered on 08/03/16 06:32; Admin Dose 1 PATCH; Start 07/27/16 at 07:00; Status Future Hold Pantoprazole (Protonix Tab) 40 mg DAILY@06 PO Last administered on 08/14/16 06 :33; Admin Dose 40 MG; Start 07/28/16 at 06:00 Hydralazine HCl (Apresoline) 20 mg Q4 PRN IV ELEVATED BLOOD PRESSURE Last administered on 08/04/16 16:35; Admin Dose 20 MG; Start 07/28/16 at 02:00 Doxazosin Mesylate (Cardura) 2 mg HS PO Last administered on 08/05/16 21:57; Admin Dose 2 MG; Start 07/28/16 at 21:00; Status Future Hold Polyethylene Glycol (Miralax) 17 gm DAILY PRN GTB CONSTIPATION Last administered on 07/28/16 20:22; Admin Dose 17 GM; Start 07/28/16 at 19:30 Lorazepam (Ativan) 1 mg Q4H PRN IV anxiety Last administered on 07/30/16 20:48 ; Admin Dose 1 MG; Start 07/29/16 at 06:30 Ethambutol HCl (Myambutol) 900 mg TuThSa@20 PO Last administered on 08/13/16 21:41; Admin Dose 900 MG; Start 07/31/16 at 20:00 Pyrazinamide (Pyrazinamide) 1,250 mg TuThSa@20 PO Last administered on 21:44; Admin Dose 1,250 MG; Start 07/31/16 at 20:00 Hydromorphone HCl (Dilaudid) 1 mg Q2H PRN IV pain Last administered on 09:50; Admin Dose 1 MG; Start 08/02/16 at 19:00 Hydralazine HCl (Apresoline) 25 mg Q8 PO Last administered on 08/06/16 05:44; Admin Dose 25 MG; Start 08/04/16 at 22:00; Status Future Hold Nifedipine (Procardia Xl) 30 mg BID PO ; Start 08/07/16 at 21:00; Status Future Hold Zolpidem Tartrate (Ambien) 5 mg HS PRN PO INSOMNIA Last administered on 00:11; Admin Dose 5 MG; Start 08/08/16 at 21:00 Benazepril HCl (Lotensin) 10 mg BID PO ; Start 08/09/16 at 09:00; Status Future Hold Metoprolol Tartrate 25 mg 25 mg BID GTB ; Start 08/09/16 at 21:00 Norepinephrine 16 mg/Dextrose 500 ml @ 1.87 mls/hr TITRATE IV Last administered on 08/12/16 14:38; Admin Dose 9.37 MLS/HR; Start 08/09/16 at 15:30 Caspofungin 50 mg/ Sodium Chloride 250 ml @ 250 mls/hr Q24H IVPB Last administered on 08/13/16 17:34; Admin Dose 250 MLS/HR; Start 08/10/16 at 17:00 Sodium Chloride 1,000 ml @ 50 mls/hr Q20H IV Last administered on 08/12/16 02 :05; Admin Dose 50 MLS/HR; Start 08/09/16 at 17:30 Dopamine HCl/ Dextrose (D5W) 250 ml @ 1.71 mls/hr TITRATE IV Last administered on 08/11/16 15:07; Admin Dose 11.43 MLS/HR; Start 08/10/16 at 15:30 Acetaminophen (Tylenol Tab) 650 mg Q6H PRN PO PAIN AND OR ELEVATED TEMP Last administered on 08/12/16 00:54; Admin Dose 650 MG; Start 08/10/16 at 16:30 Clopidogrel Bisulfate 75 mg 75 mg DAILY PO Last administered on 08/14/16 09:52 ; Admin Dose 75 MG; Start 08/11/16 at 12:00 Phenylephrine HCl 160 mg/Dextrose 500 ml @ 18.75 mls/ hr TITRATE IV ; Start 03/20 at 06:00 Sodium Bicarbonate 50 meq/Dextrose/ Sodium Chloride 1,050 ml @ 125 mls/hr Q8H24M IV Last administered on 08/14/16 09:53; Admin Dose 125 MLS/HR; Start at 07:00 Meropenem 100 ml @ 200 mls/hr Q24H IVPB Last administered on 08/13/16 12:18; Admin Dose 200 MLS/HR; Start 08/13/16 at 09:00 Levofloxacin/ Dextrose (Levaquin 250 Mg/ D5W 50 ml (Pmx)) 50 ml @ 50 mls/hr Q48H IVPB ; Start 08/14/16 at 17:30 Insulin Glargine (Lantus) 12 unit DAILY SC Last administered on 08/14/16 10:01 ; Admin Dose 12 UNIT; Start 08/13/16 at 11:00 Epoetin Tutu 3000 units 3,000 units TuThSa@17 SC ; Start 08/14/16 at 17:00 Calcium Gluconate/ Sodium Chloride (Ca Gluc/NS) 110 ml @ 110 mls/hr Q1H IVPB Last administered on 08/14/16 09:50; Admin Dose 110 MLS/HR; Start 08/14/16 at 09:00; Stop 08/14/16 at 10:59 Epoetin Tutu 2000 units 2,000 units TuThSa@17 SC ; Start 08/14/16 at 17:00 Vancomycin HCl (Vancocin) 250 ml @ 125 mls/hr Q96H IVPB ; Start 08/14/16 at 12: 00 PATRICIA RUEDA Aug 14, 2016 10:19
--- NOTE | 2016-08-14 11:14 | CONS ---
Date/Time of Note Date/Time of Note DATE: 08/14/16 TIME: 11:11 Assessment/Plan Assessment/Plan Chief Complaint/Hosp Course IMPRESSION: 1. Abnormal electrocardiogram, assess for acute coronary syndrome with recurrent chest pain now and recently negative stress test.-negative troponin x 3 2. History of a percutaneous transluminal coronary angioplasty and stent placement to left main and left anterior descending in 2014. 3. History of coronary artery bypass graft surgery. 4. Video assisted thoracoscopic surgery pleurodesis with leakage from the chest tube site.- now s/p repeat VATS/pleurodesis with CT with significant outpaut over the last 8 hours 5. Shortness of breath. 6. End-stage renal disease on hemodialysis. 7. Tuberculosis, on therapy. 8. Hypotension-recurrent today 9. Diabetes mellitus. 10. Dyslipidemia. 11. Anemia-acute worsening 12.Empyema/cavitary lesions by CT Recc: -Tele -Will give dose of albumin and small IVF bolus and if BP remains low will resume levophed pressor support -Continue Plavix/asa as tolerated -HD for volume removal as tolerated only -continue TB treatment -Follow CT output closely with ongoing surgical eval -Continue abx's and f/u cx data -Continue statin -Continue broad spectrum abx's and f/u cx data closely Problems: Consultation Date/Type/Reason Admit Date/Time Jul 24, 2016 at 12:53 Initial Consult Date 07/24/16 Type of Consultation: Cardiology Reason for Consultation abnl ecg/Hypotension Referring Provider: EVA COX MD Exam/Review of Systems Vital Signs Vitals Vital Signs Date Time Temp Pulse Resp B/P Pulse Ox O2 Delivery O2 Flow Rate FiO2 08/14/16 08:00 88 08/14/16 06:30 14 88/60 99 Room Air 08/14/16 04:16 21 08/14/16 00:00 98.4 08/12/16 07:45 2.0 Intake and Output 08/13/16 08/13/16 08/14/16 15:00 23:00 07:00 Intake Total 1860 ml 1100 ml 1050 ml Output Total 2150 ml 700 ml 1400 ml Balance -290 ml 400 ml -350 ml Exam Review of Systems: CONSTITUTIONAL: No fevers, chills. PULMONARY: No sob CARDIOVASCULAR: No chest pain/palpitations GASTROINTESTINAL: No nausea/vomiting. GENITOURINARY: No hematuria/dysuria. MUSCULOSKELETAL: No myagias/arthalgias. PSYCHIATRIC: The patient denies depression. NEUROLOGIC: Mild generalized weakness Constitutional: alert Psych: no complaints Head: normocephalic ENMT: mucosa pink and moist Neck: jvd (8 cm water), supple Respiratory: diminished breath sounds (at bases/B), other (R sided CT) Cardiovascular: regular rate and rhythm Gastrointestinal: non-tender, soft Extremities: edema (none) Neurological: lethargic Results Result Diagram: 08/13/16 1455 08/14/16 0600 Results 24 hrs Laboratory Tests Test 08/13/16 11:54 08/13/16 14:55 08/13/16 17:36 08/13/16 21:43 Bedside Glucose 172 106 98 White Blood Count 9.5 Red Blood Count 2.65 L Hemoglobin 8.6 L Hematocrit 24.8 L Mean Corpuscular Volume 93.6 Mean Corpuscular Hemoglobin 32.5 Mean Corpuscular Hemoglobin Concent 34.7 Red Cell Distribution Width 17.5 H Platelet Count 141 # Mean Platelet Volume 9.6 Neutrophils % 86.3 H Lymphocytes % 3.6 L Monocytes % 7.7 Eosinophils % 1.3 Basophils % 0.1 Nucleated Red Blood Cells % 0.0 Neutrophils # 8.2 H Lymphocytes # 0.3 L Monocytes # 0.7 Eosinophils # 0.1 Basophils # 0.0 Nucleated Red Blood Cells # 0.0 Test 08/14/16 06:00 08/14/16 09:58 Sodium Level 128 L Potassium Level 4.0 Chloride Level 100 Carbon Dioxide Level 24 Anion Gap 8 Blood Urea Nitrogen 56 H Creatinine 4.56 #H Glucose Level 158 # Calcium Level 5.5 *L Random Vancomycin Level 12.4 Bedside Glucose 199 Medications Medications Current Medications Aspirin (Halfprin) 81 mg DAILY PO Last administered on 08/13/16 09:05; Admin Dose 81 MG; Start 07/25/16 at 09:00; Status Future hold Atorvastatin Calcium (Lipitor) 10 mg QHS PO Last administered on 08/13/16 21: 43; Admin Dose 10 MG; Start 07/24/16 at 21:00 Cholecalciferol (Vitamin D) 400 units DAILY PO Last administered on 08/14/16 09:52; Admin Dose 400 UNITS; Start 07/25/16 at 09:00 Famotidine (Pepcid) 20 mg DAILY PO Last administered on 08/14/16 09:53; Admin Dose 20 MG; Start 07/25/16 at 09:00 Ferrous Sulfate (Ferrous Sulfate (Ec)) 325 mg BID PO Last administered on 09:53; Admin Dose 325 MG; Start 07/24/16 at 21:00 Acetaminophen/ Hydrocodone Bitart ([place] (5/325)) 1 tab Q4H PRN PO PAIN Last administered on 08/09/16 19:03; Admin Dose 1 TAB; Start 07/24/16 at 17:00 Isoniazid (Isoniazid) 300 mg DAILY PO Last administered on 08/14/16 09:52; Admin Dose 300 MG; Start 07/24/16 at 15:30 Pyridoxine HCl (Vitamin B6) 50 mg DAILY PO Last administered on 08/14/16 09:52 ; Admin Dose 50 MG; Start 07/25/16 at 09:00 Miscellaneous Information 1 ea NOTE XX ; Start 07/24/16 at 16:00 Glucose (Glutose) 15 gm Q15M PRN PO DECREASED GLUCOSE; Start 07/24/16 at 16:00 Glucose (Glutose) 22.5 gm Q15M PRN PO DECREASED GLUCOSE; Start 07/24/16 at 16: 00 Dextrose (D50w Syringe) 25 ml Q15M PRN IV DECREASED GLUCOSE; Start 07/24/16 at 16:00 Dextrose (D50w Syringe) 50 ml Q15M PRN IV DECREASED GLUCOSE; Start 07/24/16 at 16:00 Glucagon (Glucagen) 1 mg Q15M PRN IM DECREASED GLUCOSE; Start 07/24/16 at 16:00 Glucose (Glutose) 15 gm Q15M PRN BUCCAL DECREASED GLUCOSE; Start 07/24/16 at 16 :00 Ondansetron HCl (Zofran Inj) 4 mg Q4 PRN IV nausea Last administered on 09:18; Admin Dose 4 MG; Start 07/24/16 at 17:00 Metoclopramide HCl (Reglan) 5 mg Q4H PRN IV NAUSEA Last administered on 09:50; Admin Dose 5 MG; Start 07/24/16 at 22:30 Diagnostic Test (Pha) (Accu-Chek) 1 ea 02 XX Last administered on 08/13/16 02: 33; Admin Dose 1 EA; Start 07/26/16 at 12:00 Clonidine HCl (Catapres-Tts 2 Patch) 1 patch Q7D TRANSDERM Last administered on 08/03/16 06:32; Admin Dose 1 PATCH; Start 07/27/16 at 07:00; Status Future Hold Pantoprazole (Protonix Tab) 40 mg DAILY@06 PO Last administered on 08/14/16 06 :33; Admin Dose 40 MG; Start 07/28/16 at 06:00 Hydralazine HCl (Apresoline) 20 mg Q4 PRN IV ELEVATED BLOOD PRESSURE Last administered on 08/04/16 16:35; Admin Dose 20 MG; Start 07/28/16 at 02:00 Doxazosin Mesylate (Cardura) 2 mg HS PO Last administered on 08/05/16 21:57; Admin Dose 2 MG; Start 07/28/16 at 21:00; Status Future Hold Polyethylene Glycol (Miralax) 17 gm DAILY PRN GTB CONSTIPATION Last administered on 07/28/16 20:22; Admin Dose 17 GM; Start 07/28/16 at 19:30 Lorazepam (Ativan) 1 mg Q4H PRN IV anxiety Last administered on 07/30/16 20:48 ; Admin Dose 1 MG; Start 07/29/16 at 06:30 Ethambutol HCl (Myambutol) 900 mg TuThSa@20 PO Last administered on 08/13/16 21:41; Admin Dose 900 MG; Start 07/31/16 at 20:00 Pyrazinamide (Pyrazinamide) 1,250 mg TuThSa@20 PO Last administered on 21:44; Admin Dose 1,250 MG; Start 07/31/16 at 20:00 Hydromorphone HCl (Dilaudid) 1 mg Q2H PRN IV pain Last administered on 09:50; Admin Dose 1 MG; Start 08/02/16 at 19:00 Hydralazine HCl (Apresoline) 25 mg Q8 PO Last administered on 08/06/16 05:44; Admin Dose 25 MG; Start 08/04/16 at 22:00; Status Future Hold Nifedipine (Procardia Xl) 30 mg BID PO ; Start 08/07/16 at 21:00; Status Future Hold Zolpidem Tartrate (Ambien) 5 mg HS PRN PO INSOMNIA Last administered on 00:11; Admin Dose 5 MG; Start 08/08/16 at 21:00 Benazepril HCl (Lotensin) 10 mg BID PO ; Start 08/09/16 at 09:00; Status Future Hold Metoprolol Tartrate 25 mg 25 mg BID GTB ; Start 08/09/16 at 21:00 Norepinephrine 16 mg/Dextrose 500 ml @ 1.87 mls/hr TITRATE IV Last administered on 08/12/16 14:38; Admin Dose 9.37 MLS/HR; Start 08/09/16 at 15:30 Caspofungin 50 mg/ Sodium Chloride 250 ml @ 250 mls/hr Q24H IVPB Last administered on 08/13/16 17:34; Admin Dose 250 MLS/HR; Start 08/10/16 at 17:00 Sodium Chloride 1,000 ml @ 50 mls/hr Q20H IV Last administered on 08/12/16 02 :05; Admin Dose 50 MLS/HR; Start 08/09/16 at 17:30 Dopamine HCl/ Dextrose (D5W) 250 ml @ 1.71 mls/hr TITRATE IV Last administered on 08/11/16 15:07; Admin Dose 11.43 MLS/HR; Start 08/10/16 at 15:30 Acetaminophen (Tylenol Tab) 650 mg Q6H PRN PO PAIN AND OR ELEVATED TEMP Last administered on 08/12/16 00:54; Admin Dose 650 MG; Start 08/10/16 at 16:30 Clopidogrel Bisulfate 75 mg 75 mg DAILY PO Last administered on 08/14/16 09:52 ; Admin Dose 75 MG; Start 08/11/16 at 12:00 Phenylephrine HCl 160 mg/Dextrose 500 ml @ 18.75 mls/ hr TITRATE IV ; Start 03/20 at 06:00 Sodium Bicarbonate 50 meq/Dextrose/ Sodium Chloride 1,050 ml @ 125 mls/hr Q8H24M IV Last administered on 08/14/16 09:53; Admin Dose 125 MLS/HR; Start at 07:00 Meropenem 100 ml @ 200 mls/hr Q24H IVPB Last administered on 08/13/16t 12:18; Admin Dose 200 MLS/HR; Start 08/13/16 at 09:00 Levofloxacin/ Dextrose (Levaquin 250 Mg/ D5W 50 ml (Pmx)) 50 ml @ 50 mls/hr Q48H IVPB ; Start 08/14/16 at 17:30 Insulin Glargine (Lantus) 12 unit DAILY SC Last administered on 08/14/16 10:01 ; Admin Dose 12 UNIT; Start 08/13/16 at 11:00 Epoetin Tutu (Epogen (Esrd)) 3,000 units TuThSa@17 SC ; Start 08/14/16 at 17:00 Epoetin Tutu 2000 units 2,000 units TuThSa@17 SC ; Start 08/14/16 at 17:00 Vancomycin HCl 250 ml @ 125 mls/hr Q96H IVPB ; Start 08/14/16 at 12:00 Albumin Human 100 ml @ 100 mls/hr ONCE ONCE IV ; Start 08/14/16 at 11:00; Stop 08/14/16 at 11:59; Status UNV Sodium Chloride (NS) 250 ml @ 250 mls/hr Q1H ONCE IV ; Start 08/14/16 at 11:00 ; Stop 08/14/16 at 11:59; Status UNV SHERITA SCOTT Aug 14, 2016 11:14
[2016-08-14] MEDS: MEROPENEM 500 MG/100 ML (PMX) 100 ML IVPB SCH (11:23)
[2016-08-14] MEDS ORDERED: ALBUMIN HUMAN 25% 100 ML IV ONE (11:45)
[2016-08-14] MEDS ORDERED: SOD CHLORIDE 0.9% 250 ML IV ONE (11:45)
[2016-08-14] MEDS ORDERED: VANCOMYCIN 1 GM in NS 250 ML IVPB SCH ×2 (12:00→15:00)
--- NOTE | 2016-08-14 12:00 | CONS ---
Date/Time of Note Date/Time of Note DATE: 08/14/16 TIME: 11:52 Assessment/Plan Assessment/Plan Chief Complaint/Hosp Course - possible tubercular empyema: R sided complex loculated air containing empyemas , visceral and parietal pleural calcifications. - a 35 mm lesion with possible cavitation in the anterior inferior RUL, possible recurrent tuberculosis - high risk for TB: history (originally from [facility], spends one month of each year in [facility], last in 09/2015), medical history (DM, ESRD), laboratory findings (positive quantiferon TB gold, granulomatous inflammation with focal necrosis on Bx of pleura) - AFB smear was negative x3, also M. tuberculosis DNA probe to the 1st sputum sample was undetectable in early 07/2016; mycobacterium tuberculosis DNA probe to fluid in GUIDO bulb sent on 08/06/2016 was negative - s/p first R VATS, total pulmonary decortication, R pleurodesis on 06/30/2016. Biopsy was negative for fungal stain and AFB stain (micro lab and pathology department), as well as malignancy. It showed granulomatous inflammation with focal necrosis and extensive hyalinization. - s/p second R VATS, decortication thoracotomy on 08/04/2016. Per Dr. Martinez, the tissue did not appear empyema. It was largely blood clots and tissue debris. Fluid was sent for cultures, but not tissue. Path showed blood and polarizable foreign material, no malignancy - sputum collected on 08/02/2016 was negative for mycobacterium tuberculosis DNA probe - h/o recurrent pleural effusion requiring thoracentesis approximately once a year, last performed in 04/2016 prior to this admission - positive quantiferon TB gold status of unknown duration. Per Pt, his past PPD was done in 2013, and was negative. - Our infection quality control auditor Lindsey contacted the TB control unit at [facility]: we learned on 07/11/2016 that Pt has h/o mycobacterial tuberculosis infection in 1997 and was treated between 1997 and 1998. - DM s/p hypoglycemic episode on 08/04/16 & 08/06/16 (Hgb A1c 5.2% on 06/17/16 unreliable d/t recent blood transfusion; Hgb A1c 8.6% on 05/03/15) - ESRD on HD - CAD s/p CABG in 2010 and cardiac stent in 2013 - Moderate to severe protein calorie malnutrition - HIV screen negative in 07/2016 tested at [facility] - Sepsis vs SIRS - Hypotension requiring Levophed; s/p Dopamine - Hyperbilirubinemia - Hyponatremia - Hypocalcemia Recommendations: - continue to f/u han cx (blood cx negative to date; sputum cx growing rik albicans), procalc 08/09/16 (pending), [id number] 08/10/16 (?cancelled; re- ordered) - continue empiric abx: vanco/jae/caspofungin (08/09/16-) - change Levaquin dose to 750 mg po 3x/week after HD as recommended by TB Control (08/12/16-) - continue renally dosed isoniazid, pyrazinamide, ethambutol and vitamin B6 supplement (07/12/2016-) - check cocci CF and crypto antigen in serum - check LFTs' weekly - consider repeat CT chest - Management d/w [employer] [facility] [employer] - Above d/w Dr. Tucker - Critical care time spent: 45 minutes Problems: Consultation Date/Type/Reason Admit Date/Time Jul 24, 2016 at 12:53 Initial Consult Date 07/25/16 Type of Consultation: Infectious Disease Referring Provider: EVA COX MD 24 HR Interval Summary Free Text/Dictation Levophed restarted around 11:00 AM d/t low blood pressure, calcium gluconate was given, and awaiting H/H lab draw per DOUGLAS Richardson. Pt states right chest tube pain is currently tolerable. Denies F/C, CP, SOB, abd pain, n/v/d, dysuria. States has poor appetite. Exam/Review of Systems Vital Signs Vitals Vital Signs Date Time Temp Pulse Resp B/P Pulse Ox O2 Delivery O2 Flow Rate FiO2 08/14/16 08:00 88 08/14/16 06:30 14 88/60 99 Room Air 08/14/16 04:16 21 08/14/16 00:00 98.4 08/12/16 07:45 2.0 Intake and Output 08/13/16 08/13/16 08/14/16 15:00 23:00 07:00 Intake Total 1860 ml 1100 ml 1175 ml Output Total 2150 ml 700 ml 1400 ml Balance -290 ml 400 ml -225 ml Exam Constitutional: alert, oriented, well developed Head: atraumatic, normocephalic, other (no thrush noted) Neck: supple, non-tender Respiratory: diminished breath sounds, other (Right sided chest tube intact with serous drainage) Gastrointestinal: non-tender, soft Genitourinary - Male: other (bilateral groin HD catheter intact) Musculoskeletal: nl extremities to inspection Extremities: No clubbing, No cyanosis, No edema Results Result Diagram: 08/13/16 1455 08/14/16 0600 Results 24 hrs Laboratory Tests Test 08/13/16 11:54 08/13/16 14:55 08/13/16 17:36 08/13/16 21:43 Bedside Glucose 172 106 98 White Blood Count 9.5 Red Blood Count 2.65 L Hemoglobin 8.6 L Hematocrit 24.8 L Mean Corpuscular Volume 93.6 Mean Corpuscular Hemoglobin 32.5 Mean Corpuscular Hemoglobin Concent 34.7 Red Cell Distribution Width 17.5 H Platelet Count 141 # Mean Platelet Volume 9.6 Neutrophils % 86.3 H Lymphocytes % 3.6 L Monocytes % 7.7 Eosinophils % 1.3 Basophils % 0.1 Nucleated Red Blood Cells % 0.0 Neutrophils # 8.2 H Lymphocytes # 0.3 L Monocytes # 0.7 Eosinophils # 0.1 Basophils # 0.0 Nucleated Red Blood Cells # 0.0 Test 08/14/16 06:00 08/14/16 09:58 Sodium Level 128 L Potassium Level 4.0 Chloride Level 100 Carbon Dioxide Level 24 Anion Gap 8 Blood Urea Nitrogen 56 H Creatinine 4.56 #H Glucose Level 158 # Calcium Level 5.5 *L Random Vancomycin Level 12.4 Bedside Glucose 199 Medications Medications Current Medications Aspirin (Halfprin) 81 mg DAILY PO Last administered on 08/13/16 09:05; Admin Dose 81 MG; Start 07/25/16 at 09:00; Status Future hold Atorvastatin Calcium (Lipitor) 10 mg QHS PO Last administered on 08/13/16 21: 43; Admin Dose 10 MG; Start 07/24/16 at 21:00 Cholecalciferol (Vitamin D) 400 units DAILY PO Last administered on 08/14/16 09:52; Admin Dose 400 UNITS; Start 07/25/16 at 09:00 Famotidine (Pepcid) 20 mg DAILY PO Last administered on 08/14/16 09:53; Admin Dose 20 MG; Start 07/25/16 at 09:00 Ferrous Sulfate (Ferrous Sulfate (Ec)) 325 mg BID PO Last administered on 09:53; Admin Dose 325 MG; Start 07/24/16 at 21:00 Acetaminophen/ Hydrocodone Bitart ([place] (5/325)) 1 tab Q4H PRN PO PAIN Last administered on 08/09/16 19:03; Admin Dose 1 TAB; Start 07/24/16 at 17:00 Isoniazid (Isoniazid) 300 mg DAILY PO Last administered on 08/14/16 09:52; Admin Dose 300 MG; Start 07/24/16 at 15:30 Pyridoxine HCl (Vitamin B6) 50 mg DAILY PO Last administered on 08/14/16 09:52 ; Admin Dose 50 MG; Start 07/25/16 at 09:00 Miscellaneous Information 1 ea NOTE XX ; Start 07/24/16 at 16:00 Glucose (Glutose) 15 gm Q15M PRN PO DECREASED GLUCOSE; Start 07/24/16 at 16:00 Glucose (Glutose) 22.5 gm Q15M PRN PO DECREASED GLUCOSE; Start 07/24/16 at 16: 00 Dextrose (D50w Syringe) 25 ml Q15M PRN IV DECREASED GLUCOSE; Start 07/24/16 at 16:00 Dextrose (D50w Syringe) 50 ml Q15M PRN IV DECREASED GLUCOSE; Start 07/24/16 at 16:00 Glucagon (Glucagen) 1 mg Q15M PRN IM DECREASED GLUCOSE; Start 07/24/16 at 16:00 Glucose (Glutose) 15 gm Q15M PRN BUCCAL DECREASED GLUCOSE; Start 07/24/16 at 16 :00 Ondansetron HCl (Zofran Inj) 4 mg Q4 PRN IV nausea Last administered on 09:18; Admin Dose 4 MG; Start 07/24/16 at 17:00 Metoclopramide HCl (Reglan) 5 mg Q4H PRN IV NAUSEA Last administered on 09:50; Admin Dose 5 MG; Start 07/24/16 at 22:30 Diagnostic Test (Pha) (Accu-Chek) 1 ea 02 XX Last administered on 08/13/16 02: 33; Admin Dose 1 EA; Start 07/26/16 at 12:00 Clonidine HCl (Catapres-Tts 2 Patch) 1 patch Q7D TRANSDERM Last administered on 08/03/16 06:32; Admin Dose 1 PATCH; Start 07/27/16 at 07:00; Status Future Hold Pantoprazole (Protonix Tab) 40 mg DAILY@06 PO Last administered on 08/14/16 06 :33; Admin Dose 40 MG; Start 07/28/16 at 06:00 Hydralazine HCl (Apresoline) 20 mg Q4 PRN IV ELEVATED BLOOD PRESSURE Last administered on 08/04/16 16:35; Admin Dose 20 MG; Start 07/28/16 at 02:00 Doxazosin Mesylate (Cardura) 2 mg HS PO Last administered on 08/05/16 21:57; Admin Dose 2 MG; Start 07/28/16 at 21:00; Status Future Hold Polyethylene Glycol (Miralax) 17 gm DAILY PRN GTB CONSTIPATION Last administered on 07/28/16 20:22; Admin Dose 17 GM; Start 07/28/16 at 19:30 Lorazepam (Ativan) 1 mg Q4H PRN IV anxiety Last administered on 07/30/16 20:48 ; Admin Dose 1 MG; Start 07/29/16 at 06:30 Ethambutol HCl (Myambutol) 900 mg TuThSa@20 PO Last administered on 08/13/16 21:41; Admin Dose 900 MG; Start 07/31/16 at 20:00 Pyrazinamide (Pyrazinamide) 1,250 mg TuThSa@20 PO Last administered on 21:44; Admin Dose 1,250 MG; Start 07/31/16 at 20:00 Hydromorphone HCl (Dilaudid) 1 mg Q2H PRN IV pain Last administered on 09:50; Admin Dose 1 MG; Start 08/02/16 at 19:00 Hydralazine HCl (Apresoline) 25 mg Q8 PO Last administered on 08/06/16 05:44; Admin Dose 25 MG; Start 08/04/16 at 22:00; Status Future Hold Nifedipine (Procardia Xl) 30 mg BID PO ; Start 08/07/16 at 21:00; Status Future Hold Zolpidem Tartrate (Ambien) 5 mg HS PRN PO INSOMNIA Last administered on 00:11; Admin Dose 5 MG; Start 08/08/16 at 21:00 Benazepril HCl (Lotensin) 10 mg BID PO ; Start 08/09/16 at 09:00; Status Future Hold Metoprolol Tartrate 25 mg 25 mg BID GTB ; Start 08/09/16 at 21:00 Norepinephrine 16 mg/Dextrose 500 ml @ 1.87 mls/hr TITRATE IV Last administered on 08/12/16 14:38; Admin Dose 9.37 MLS/HR; Start 08/09/16 at 15:30 Caspofungin 50 mg/ Sodium Chloride 250 ml @ 250 mls/hr Q24H IVPB Last administered on 08/13/16 17:34; Admin Dose 250 MLS/HR; Start 08/10/16 at 17:00 Sodium Chloride 1,000 ml @ 50 mls/hr Q20H IV Last administered on 08/12/16 02 :05; Admin Dose 50 MLS/HR; Start 08/09/16 at 17:30 Dopamine HCl/ Dextrose (D5W) 250 ml @ 1.71 mls/hr TITRATE IV Last administered on 08/11/16 15:07; Admin Dose 11.43 MLS/HR; Start 08/10/16 at 15:30 Acetaminophen (Tylenol Tab) 650 mg Q6H PRN PO PAIN AND OR ELEVATED TEMP Last administered on 08/12/16 00:54; Admin Dose 650 MG; Start 08/10/16 at 16:30 Clopidogrel Bisulfate 75 mg 75 mg DAILY PO Last administered on 08/14/16 09:52 ; Admin Dose 75 MG; Start 08/11/16 at 12:00 Phenylephrine HCl 160 mg/Dextrose 500 ml @ 18.75 mls/ hr TITRATE IV ; Start 03/20 at 06:00 Sodium Bicarbonate 50 meq/Dextrose/ Sodium Chloride 1,050 ml @ 125 mls/hr Q8H24M IV Last administered on 08/14/16 09:53; Admin Dose 125 MLS/HR; Start at 07:00 Meropenem 100 ml @ 200 mls/hr Q24H IVPB Last administered on 08/14/16 11:23; Admin Dose 200 MLS/HR; Start 08/13/16 at 09:00 Levofloxacin/ Dextrose (Levaquin 250 Mg/ D5W 50 ml (Pmx)) 50 ml @ 50 mls/hr Q48H IVPB ; Start 08/14/16 at 17:30 Insulin Glargine (Lantus) 12 unit DAILY SC Last administered on 08/14/16t 10:01 ; Admin Dose 12 UNIT; Start 08/13/16 at 11:00 Epoetin Tutu (Epogen (Esrd)) 3,000 units TuThSa@17 SC ; Start 08/14/16 at 17:00 Epoetin Tutu 2000 units 2,000 units TuThSa@17 SC ; Start 08/14/16 at 17:00 Vancomycin HCl 250 ml @ 125 mls/hr Q96H IVPB ; Start 08/14/16 at 12:00 Albumin Human 100 ml @ 100 mls/hr ONCE ONCE IV ; Start 08/14/16 at 11:45; Stop 08/14/16 at 12:44 Sodium Chloride (NS) 250 ml @ 250 mls/hr Q1H ONCE IV Last administered on 08/14 11:33; Admin Dose 250 MLS/HR; Start 08/14/16 at 11:45; Stop 08/14/16 at 12 :44 Triglycerides (Mct Oil (Ped)) 10 ml Q6 PO ; Start 08/14/16 at 12:30 Procedures Procedures CXR 08/11/16: 1. There is again evidence of a previous right thoracotomy with the thoracostomy tube stable in positioning. 2. No pleural fluid accumulation or pneumothorax is presently evident but there continues week consolidation and volume loss to the right mid to lower lung zone. 3. Pacemaker and dual lead stable in positioning with evidence of a previous CABG. The cardiovascular silhouette is otherwise unremarkable except for atherosclerotic change involving the aorta. NORI JORGENSEN [employer] Aug 14, 2016 12:00
[2016-08-14 12:31] LABS: HEMATOCRIT 31.2 % (42.0-52.0); HEMOGLOBIN 10.2 g/dl (14.0-18.0)
[2016-08-14] MEDS: MED CHAIN TRIGLYCERIDES (PO SYG) PO SCH ×2 (14:10→18:14)
[2016-08-14] MEDS: HYDROCODONE/APAP (5/325) TAB PO PRN (14:11)
--- NOTE | 2016-08-14 17:16 | CONS ---
Date/Time of Note Date/Time of Note DATE: 08/14/16 TIME: 17:15 Assessment/Plan Assessment/Plan Chief Complaint/Hosp Course IMPRESSION: 1. Recurrent pleural effusions. s/p vats 2. Lung infiltrate./cavitary lesion 3. chronic lung disease. 4. Hypotension better 5. Diabetes mellitus. 6. End-stage renal disease. 7. anemia. 8. cad. 9. hypotension 10. ashd 11. PLEURAL EFFUSIN 12. The patient on anti-tuberculosis treatment. 13. 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 14 dehydration on iv fluid 15 hypocalcemia PLAN per id and surg ctube care hd am iv fluid albumin tums iv calcium Problems: Consultation Date/Type/Reason Admit Date/Time Jul 24, 2016 at 12:53 Initial Consult Date 07/25/16 Type of Consultation: renal Referring Provider: EVA COX MD 24 HR Interval Summary Constitutional: no complaints Exam/Review of Systems Vital Signs Vitals Vital Signs Date Time Temp Pulse Resp B/P Pulse Ox O2 Delivery O2 Flow Rate FiO2 08/14/16 16:00 94 08/14/16 06:30 14 88/60 99 Room Air 08/14/16 04:16 21 08/14/16 00:00 98.4 08/12/16 07:45 2.0 Intake and Output 08/13/16 08/13/16 08/14/16 15:00 23:00 07:00 Intake Total 1860 ml 1100 ml 1175 ml Output Total 2150 ml 700 ml 1400 ml Balance -290 ml 400 ml -225 ml Exam Neck: supple Respiratory: clear to auscultation Gastrointestinal: soft Musculoskeletal: nl extremities to inspection Extremities: normal pulses Results Result Diagram: 08/14/16 1220 08/14/16 0600 Results 24 hrs Laboratory Tests Test 08/13/16 17:36 08/13/16 21:43 08/14/16 06:00 08/14/16 09:58 Bedside Glucose 106 98 199 Sodium Level 128 L Potassium Level 4.0 Chloride Level 100 Carbon Dioxide Level 24 Anion Gap 8 Blood Urea Nitrogen 56 H Creatinine 4.56 #H Glucose Level 158 # Calcium Level 5.5 *L Random Vancomycin Level 12.4 Test 08/14/16 12:20 08/14/16 12:37 Hemoglobin 10.2 L Hematocrit 31.2 #L Bedside Glucose 284 H Medications Medications Current Medications Aspirin (Halfprin) 81 mg DAILY PO Last administered on 08/13/16 09:05; Admin Dose 81 MG; Start 07/25/16 at 09:00; Status Future hold Atorvastatin Calcium (Lipitor) 10 mg QHS PO Last administered on 08/13/16 21: 43; Admin Dose 10 MG; Start 07/24/16 at 21:00 Cholecalciferol (Vitamin D) 400 units DAILY PO Last administered on 08/14/16 09:52; Admin Dose 400 UNITS; Start 07/25/16 at 09:00 Famotidine (Pepcid) 20 mg DAILY PO Last administered on 08/14/16 09:53; Admin Dose 20 MG; Start 07/25/16 at 09:00 Ferrous Sulfate (Ferrous Sulfate (Ec)) 325 mg BID PO Last administered on 09:53; Admin Dose 325 MG; Start 07/24/16 at 21:00 Acetaminophen/ Hydrocodone Bitart ([place] (5/325)) 1 tab Q4H PRN PO PAIN Last administered on 08/14/16 14:11; Admin Dose 1 TAB; Start 07/24/16 at 17:00 Isoniazid (Isoniazid) 300 mg DAILY PO Last administered on 08/14/16 09:52; Admin Dose 300 MG; Start 07/24/16 at 15:30 Pyridoxine HCl (Vitamin B6) 50 mg DAILY PO Last administered on 08/14/16 09:52 ; Admin Dose 50 MG; Start 07/25/16 at 09:00 Miscellaneous Information 1 ea NOTE XX ; Start 07/24/16 at 16:00 Glucose (Glutose) 15 gm Q15M PRN PO DECREASED GLUCOSE; Start 07/24/16 at 16:00 Glucose (Glutose) 22.5 gm Q15M PRN PO DECREASED GLUCOSE; Start 07/24/16 at 16: 00 Dextrose (D50w Syringe) 25 ml Q15M PRN IV DECREASED GLUCOSE; Start 07/24/16 at 16:00 Dextrose (D50w Syringe) 50 ml Q15M PRN IV DECREASED GLUCOSE; Start 07/24/16 at 16:00 Glucagon (Glucagen) 1 mg Q15M PRN IM DECREASED GLUCOSE; Start 07/24/16 at 16:00 Glucose (Glutose) 15 gm Q15M PRN BUCCAL DECREASED GLUCOSE; Start 07/24/16 at 16 :00 Ondansetron HCl (Zofran Inj) 4 mg Q4 PRN IV nausea Last administered on 09:18; Admin Dose 4 MG; Start 07/24/16 at 17:00 Metoclopramide HCl (Reglan) 5 mg Q4H PRN IV NAUSEA Last administered on 09:50; Admin Dose 5 MG; Start 07/24/16 at 22:30 Diagnostic Test (Pha) (Accu-Chek) 1 ea 02 XX Last administered on 08/13/16 02: 33; Admin Dose 1 EA; Start 07/26/16 at 12:00 Clonidine HCl (Catapres-Tts 2 Patch) 1 patch Q7D TRANSDERM Last administered on 08/03/16 06:32; Admin Dose 1 PATCH; Start 07/27/16 at 07:00; Status Future Hold Pantoprazole (Protonix Tab) 40 mg DAILY@06 PO Last administered on 08/14/16 06 :33; Admin Dose 40 MG; Start 07/28/16 at 06:00 Hydralazine HCl (Apresoline) 20 mg Q4 PRN IV ELEVATED BLOOD PRESSURE Last administered on 08/04/16 16:35; Admin Dose 20 MG; Start 07/28/16 at 02:00 Doxazosin Mesylate (Cardura) 2 mg HS PO Last administered on 08/05/16 21:57; Admin Dose 2 MG; Start 07/28/16 at 21:00; Status Future Hold Polyethylene Glycol (Miralax) 17 gm DAILY PRN GTB CONSTIPATION Last administered on 07/28/16 20:22; Admin Dose 17 GM; Start 07/28/16 at 19:30 Lorazepam (Ativan) 1 mg Q4H PRN IV anxiety Last administered on 07/30/16 20:48 ; Admin Dose 1 MG; Start 07/29/16 at 06:30 Ethambutol HCl (Myambutol) 900 mg TuThSa@20 PO Last administered on 08/13/16 21:41; Admin Dose 900 MG; Start 07/31/16 at 20:00 Pyrazinamide (Pyrazinamide) 1,250 mg TuThSa@20 PO Last administered on 21:44; Admin Dose 1,250 MG; Start 07/31/16 at 20:00 Hydromorphone HCl (Dilaudid) 1 mg Q2H PRN IV pain Last administered on 09:50; Admin Dose 1 MG; Start 08/02/16 at 19:00 Hydralazine HCl (Apresoline) 25 mg Q8 PO Last administered on 08/06/16 05:44; Admin Dose 25 MG; Start 08/04/16 at 22:00; Status Future Hold Nifedipine (Procardia Xl) 30 mg BID PO ; Start 08/07/16 at 21:00; Status Future Hold Zolpidem Tartrate (Ambien) 5 mg HS PRN PO INSOMNIA Last administered on 00:11; Admin Dose 5 MG; Start 08/08/16 at 21:00 Benazepril HCl (Lotensin) 10 mg BID PO ; Start 08/09/16 at 09:00; Status Future Hold Metoprolol Tartrate 25 mg 25 mg BID GTB ; Start 08/09/16 at 21:00 Norepinephrine 16 mg/Dextrose 500 ml @ 1.87 mls/hr TITRATE IV Last administered on 08/12/16 14:38; Admin Dose 9.37 MLS/HR; Start 08/09/16 at 15:30 Caspofungin 50 mg/ Sodium Chloride 250 ml @ 250 mls/hr Q24H IVPB Last administered on 08/13/16 17:34; Admin Dose 250 MLS/HR; Start 08/10/16 at 17:00 Sodium Chloride 1,000 ml @ 50 mls/hr Q20H IV Last administered on 08/12/16 02 :05; Admin Dose 50 MLS/HR; Start 08/09/16 at 17:30 Dopamine HCl/ Dextrose (D5W) 250 ml @ 1.71 mls/hr TITRATE IV Last administered on 08/11/16 15:07; Admin Dose 11.43 MLS/HR; Start 08/10/16 at 15:30 Acetaminophen (Tylenol Tab) 650 mg Q6H PRN PO PAIN AND OR ELEVATED TEMP Last administered on 08/12/16 00:54; Admin Dose 650 MG; Start 08/10/16 at 16:30 Clopidogrel Bisulfate 75 mg 75 mg DAILY PO Last administered on 08/14/16 09:52 ; Admin Dose 75 MG; Start 08/11/16 at 12:00 Phenylephrine HCl 160 mg/Dextrose 500 ml @ 18.75 mls/ hr TITRATE IV ; Start 03/20 at 06:00 Sodium Bicarbonate 50 meq/Dextrose/ Sodium Chloride 1,050 ml @ 140 mls/hr Q7H30M IV Last administered on 08/14/16 09:53; Admin Dose 125 MLS/HR; Start at 07:00 Meropenem (Merrem 500 Mg/ 100 ml (Pmx)) 100 ml @ 200 mls/hr Q24H IVPB Last administered on 08/14/16 11:23; Admin Dose 200 MLS/HR; Start 08/13/16 at 09:00 Insulin Glargine (Lantus) 12 unit DAILY SC Last administered on 08/14/16 10:01 ; Admin Dose 12 UNIT; Start 08/13/16 at 11:00 Epoetin Tutu (Epogen (Esrd)) 3,000 units TuThSa@17 SC ; Start 08/14/16 at 17:00 Epoetin Tutu (Epogen (Esrd)) 2,000 units TuThSa@17 SC ; Start 08/14/16 at 17:00 Triglycerides 10 ml 10 ml Q6 PO Last administered on 08/14/16 14:10; Admin Dose 10 ML; Start 08/14/16 at 12:30 Vancomycin HCl (Vancocin) 250 ml @ 125 mls/hr Q96H IVPB Last administered on 15:43; Admin Dose 125 MLS/HR; Start 08/14/16 at 15:00 Levofloxacin (Levaquin) 750 mg TuThSa PO ; Start 08/14/16 at 20:00 Calcium Carbonate (Tums) 500 mg TID PO ; Start 08/14/16 at 21:00; Status PAOLA VALVERDE MD Aug 14, 2016 17:16
[2016-08-14] MEDS ORDERED: LEVOFLOXACIN 250MG/D5W (PMX) 50 ML IVPB SCH (17:30)
[2016-08-14] MEDS: SOD CHLORIDE 0.9% 1,000 ML IV SCH (17:48)
[2016-08-14] MEDS: CASPOFUNGIN 50 MG in SOD CHLORIDE 0.9% 250 ML IVPB SCH (17:48)
[2016-08-14] MEDS ORDERED: CALCIUM GLUCONATE 10% 1 GM in SOD CHLORIDE 0.9% 100 ML IVPB SCH (18:00)
[2016-08-14] MEDS: ONDANSETRON 4 MG INJ IV PRN (19:03)
[2016-08-14] MEDS ORDERED: LEVOFLOXACIN 750MG/D5W (PMX) 150 ML IVPB SCH (20:00)
--- NOTE | 2016-08-14 20:24 | PN ---
Date/Time of Note Date/Time of Note DATE: 08/14/16 TIME: 20:23 Assessment/Plan VTE Prophylaxis VTE Prophylaxis Intervention: other Lines/Catheters IV Catheter Type (from Nrs): SH[facility]NA Central line still needed: No Urinary Cath still in place: No Assessment/Plan Chief Complaint/Hosp Course IMPRESSION: Right chest tube site bleeding, which has now subsided completely. Hgb stable Would monitor the hemoglobin levels and stop the antiplatelet. SP VATS Decortication CT output 3000cc will continue CT sxn may need pleurex cath Problems: Subjective 24 Hr Interval Summary Gastrointestinal: no complaints Genitourinary: no complaints Musculoskeletal: no complaints Skin: no complaints Exam/Review of Systems Vital Signs Vitals Vital Signs Date Time Temp Pulse Resp B/P Pulse Ox O2 Delivery O2 Flow Rate FiO2 08/14/16 19:14 99 21 08/14/16 18:30 95 20 138/76 Room Air 08/14/16 16:00 97.9 08/12/16 07:45 2.0 Intake and Output 08/13/16 08/13/16 08/14/16 15:00 23:00 07:00 Intake Total 1860 ml 1100 ml 1175 ml Output Total 2150 ml 700 ml 1400 ml Balance -290 ml 400 ml -225 ml Exam Neck: non-tender, supple Respiratory: clear to auscultation, normal air movement Cardiovascular: nl pulses, regular rate and rhythm Gastrointestinal: nl liver, spleen, non-tender, soft Results Result Diagram: 08/14/16 1220 08/14/16 0600 Results 24 hrs Laboratory Tests Test 08/13/16 21:43 08/14/16 06:00 08/14/16 09:58 08/14/16 12:20 Bedside Glucose 98 199 Sodium Level 128 L Potassium Level 4.0 Chloride Level 100 Carbon Dioxide Level 24 Anion Gap 8 Blood Urea Nitrogen 56 H Creatinine 4.56 #H Glucose Level 158 # Calcium Level 5.5 *L Random Vancomycin Level 12.4 Hemoglobin 10.2 L Hematocrit 31.2 #L Test 08/14/16 12:37 08/14/16 17:50 Bedside Glucose 284 H 243 H Medications Medications Current Medications Aspirin (Halfprin) 81 mg DAILY PO Last administered on 08/13/16t 09:05; Admin Dose 81 MG; Start 07/25/16 at 09:00; Status Future hold Atorvastatin Calcium (Lipitor) 10 mg QHS PO Last administered on 08/13/16 21: 43; Admin Dose 10 MG; Start 07/24/16 at 21:00 Cholecalciferol (Vitamin D) 400 units DAILY PO Last administered on 08/14/16 09:52; Admin Dose 400 UNITS; Start 07/25/16 at 09:00 Famotidine (Pepcid) 20 mg DAILY PO Last administered on 08/14/16 09:53; Admin Dose 20 MG; Start 07/25/16 at 09:00 Ferrous Sulfate (Ferrous Sulfate (Ec)) 325 mg BID PO Last administered on 09:53; Admin Dose 325 MG; Start 07/24/16 at 21:00 Acetaminophen/ Hydrocodone Bitart ([place] (5/325)) 1 tab Q4H PRN PO PAIN Last administered on 08/14/16 14:11; Admin Dose 1 TAB; Start 07/24/16 at 17:00 Isoniazid (Isoniazid) 300 mg DAILY PO Last administered on 08/14/16 09:52; Admin Dose 300 MG; Start 07/24/16 at 15:30 Pyridoxine HCl (Vitamin B6) 50 mg DAILY PO Last administered on 08/14/16 09:52 ; Admin Dose 50 MG; Start 07/25/16 at 09:00 Miscellaneous Information 1 ea NOTE XX ; Start 07/24/16 at 16:00 Glucose (Glutose) 15 gm Q15M PRN PO DECREASED GLUCOSE; Start 07/24/16 at 16:00 Glucose (Glutose) 22.5 gm Q15M PRN PO DECREASED GLUCOSE; Start 07/24/16 at 16: 00 Dextrose (D50w Syringe) 25 ml Q15M PRN IV DECREASED GLUCOSE; Start 07/24/16 at 16:00 Dextrose (D50w Syringe) 50 ml Q15M PRN IV DECREASED GLUCOSE; Start 07/24/16 at 16:00 Glucagon (Glucagen) 1 mg Q15M PRN IM DECREASED GLUCOSE; Start 07/24/16 at 16:00 Glucose (Glutose) 15 gm Q15M PRN BUCCAL DECREASED GLUCOSE; Start 07/24/16 at 16 :00 Ondansetron HCl (Zofran Inj) 4 mg Q4 PRN IV nausea Last administered on 19:03; Admin Dose 4 MG; Start 07/24/16 at 17:00 Metoclopramide HCl (Reglan) 5 mg Q4H PRN IV NAUSEA Last administered on 16:40; Admin Dose 5 MG; Start 07/24/16 at 22:30 Diagnostic Test (Pha) (Accu-Chek) 1 ea 02 XX Last administered on 08/13/16 02: 33; Admin Dose 1 EA; Start 07/26/16 at 12:00 Clonidine HCl (Catapres-Tts 2 Patch) 1 patch Q7D TRANSDERM Last administered on 08/03/16 06:32; Admin Dose 1 PATCH; Start 07/27/16 at 07:00; Status Future Hold Pantoprazole (Protonix Tab) 40 mg DAILY@06 PO Last administered on 08/14/16 06 :33; Admin Dose 40 MG; Start 07/28/16 at 06:00 Hydralazine HCl (Apresoline) 20 mg Q4 PRN IV ELEVATED BLOOD PRESSURE Last administered on 08/04/16 16:35; Admin Dose 20 MG; Start 07/28/16 at 02:00 Doxazosin Mesylate (Cardura) 2 mg HS PO Last administered on 08/05/16 21:57; Admin Dose 2 MG; Start 07/28/16 at 21:00; Status Future Hold Polyethylene Glycol (Miralax) 17 gm DAILY PRN GTB CONSTIPATION Last administered on 07/28/16 20:22; Admin Dose 17 GM; Start 07/28/16 at 19:30 Lorazepam (Ativan) 1 mg Q4H PRN IV anxiety Last administered on 07/30/16 20:48 ; Admin Dose 1 MG; Start 07/29/16 at 06:30 Ethambutol HCl (Myambutol) 900 mg TuThSa@20 PO Last administered on 08/13/16 21:41; Admin Dose 900 MG; Start 07/31/16 at 20:00 Pyrazinamide (Pyrazinamide) 1,250 mg TuThSa@20 PO Last administered on 21:44; Admin Dose 1,250 MG; Start 07/31/16 at 20:00 Hydromorphone HCl (Dilaudid) 1 mg Q2H PRN IV pain Last administered on 16:40; Admin Dose 1 MG; Start 08/02/16 at 19:00 Hydralazine HCl (Apresoline) 25 mg Q8 PO Last administered on 08/06/16 05:44; Admin Dose 25 MG; Start 08/04/16 at 22:00; Status Future Hold Nifedipine (Procardia Xl) 30 mg BID PO ; Start 08/07/16 at 21:00; Status Future Hold Zolpidem Tartrate (Ambien) 5 mg HS PRN PO INSOMNIA Last administered on 00:11; Admin Dose 5 MG; Start 08/08/16 at 21:00 Benazepril HCl (Lotensin) 10 mg BID PO ; Start 08/09/16 at 09:00; Status Future Hold Metoprolol Tartrate 25 mg 25 mg BID GTB ; Start 08/09/16 at 21:00 Norepinephrine 16 mg/Dextrose 500 ml @ 1.87 mls/hr TITRATE IV Last administered on 08/12/16 14:38; Admin Dose 9.37 MLS/HR; Start 08/09/16 at 15:30 Caspofungin 50 mg/ Sodium Chloride 250 ml @ 250 mls/hr Q24H IVPB Last administered on 08/14/16 17:48; Admin Dose 250 MLS/HR; Start 08/10/16 at 17:00 Sodium Chloride 1,000 ml @ 50 mls/hr Q20H IV Last administered on 08/14/16 17 :48; Admin Dose 50 MLS/HR; Start 08/09/16 at 17:30 Dopamine HCl/ Dextrose (D5W) 250 ml @ 1.71 mls/hr TITRATE IV Last administered on 08/11/16 15:07; Admin Dose 11.43 MLS/HR; Start 08/10/16 at 15:30 Acetaminophen (Tylenol Tab) 650 mg Q6H PRN PO PAIN AND OR ELEVATED TEMP Last administered on 08/12/16 00:54; Admin Dose 650 MG; Start 08/10/16 at 16:30 Clopidogrel Bisulfate 75 mg 75 mg DAILY PO Last administered on 08/14/16 09:52 ; Admin Dose 75 MG; Start 08/11/16 at 12:00 Phenylephrine HCl 160 mg/Dextrose 500 ml @ 18.75 mls/ hr TITRATE IV ; Start 03/20 at 06:00 Sodium Bicarbonate 50 meq/Dextrose/ Sodium Chloride 1,050 ml @ 140 mls/hr Q7H30M IV Last administered on 08/14/16 17:48; Admin Dose 140 MLS/HR; Start at 07:00 Meropenem (Merrem 500 Mg/ 100 ml (Pmx)) 100 ml @ 200 mls/hr Q24H IVPB Last administered on 08/14/16 11:23; Admin Dose 200 MLS/HR; Start 08/13/16 at 09:00 Insulin Glargine (Lantus) 12 unit DAILY SC Last administered on 08/14/16 10:01 ; Admin Dose 12 UNIT; Start 08/13/16 at 11:00 Epoetin Tutu (Epogen (Esrd)) 3,000 units TuThSa@17 SC ; Start 08/14/16 at 17:00 Epoetin [place]u (Epogen (Esrd)) 2,000 units TuThSa@17 SC ; Start 08/14/16 at 17:00 Triglycerides 10 ml 10 ml Q6 PO Last administered on 08/14/16 18:14; Admin Dose 10 ML; Start 08/14/16 at 12:30 Vancomycin HCl (Vancocin) 250 ml @ 125 mls/hr Q96H IVPB Last administered on 15:43; Admin Dose 125 MLS/HR; Start 08/14/16 at 15:00 Levofloxacin (Levaquin) 750 mg TuThSa PO ; Start 08/14/16 at 20:00 Calcium Carbonate 500 mg 500 mg TID PO ; Start 08/14/16 at 21:00 Calcium Gluconate/ Sodium Chloride (Ca Gluc/NS) 110 ml @ 110 mls/hr ONCE IVPB ; Start 08/15/16 at 09:00; Stop 08/15/16 at 20:00 LILIA FELIZ MD Aug 14, 2016 20:24
[2016-08-14] MEDS: ATORVASTATIN 10 MG TAB PO SCH (20:40)
[2016-08-14] MEDS: LEVOFLOXACIN 750 MG TABLET PO SCH (20:42)
[2016-08-14] MEDS ORDERED: CALCIUM CARBONATE 500 MG CHEW TAB PO SCH (21:00)
[2016-08-14] MEDS: ZOLPIDEM 5 MG TAB PO PRN (22:40)
[2016-08-15] VITALS (89 sets, daily range): BP systolic 71–131; BP diastolic 46–89; PULSE 89–128; RESP 0–26
[2016-08-15] MEDS: MED CHAIN TRIGLYCERIDES (PO SYG) PO SCH ×4 (00:03→18:35)
[2016-08-15] MEDS: HYDROmorphONE 1 MG/ML SYG IV PRN ×2 (00:46→13:21)
[2016-08-15] MEDS: SODIUM BICARBONATE (IV ADD) 50 MEQ in DEXTROSE 5%-0.45% NACL 1,000 ML IV SCH ×4 (00:50→17:28)
[2016-08-15] MEDS: ACCUCHECK 2 AM XX SCH (02:25)
[2016-08-15 04:46] LABS: ADD SCAN DIFF NO
[2016-08-15 04:52] LABS: ABNORMAL IP MESSAGE 1; BASOPHILS % 0.2 % (0.0-2.0); EOSINOPHILS # 0.2 10^3/ul (0.0-0.5); EOSINOPHILS % 1.4 % (0.0-7.0); HEMATOCRIT 28.3 % (42.0-52.0); HEMOGLOBIN 9.5 g/dl (14.0-18.0); LYMPHOCYTES # 0.5 10^3/ul (0.8-2.9); MEAN CORPUSCULAR HEMOGLOBIN 32.1 pg (29.0-33.0); MEAN CORPUSCULAR HGB CONC 33.6 g/dl (32.0-37.0); MEAN CORPUSCULAR VOLUME 95.6 fl (82.0-101.0); MEAN PLATELET VOLUME 10.7 fl (7.4-10.4); MONOCYTE # 0.9 10^3/ul (0.3-0.9); MONOCYTES % 6.9 % (0.0-11.0); NEUTROPHIL # 10.8 10^3/ul (1.6-7.5); NEUTROPHILS % 86.2 % (39.0-77.0); PLATELET COUNT 164 10^3/UL (140-415); RED BLOOD COUNT 2.96 10^6/ul (4.70-6.10); RED CELL DISTRIBUTION WIDTH 17.8 % (11.5-14.5); WHITE BLOOD COUNT 12.6 10^3/ul (4.8-10.8)
[2016-08-15 05:23] LABS: ALBUMIN/GLOBULIN RATIO 1.05; BILIRUBIN,DIRECT 0.8 mg/dl (0.00-0.20); BILIRUBIN,INDIRECT 0.6 mg/dl (0-1.1); BILIRUBIN,TOTAL 1.4 mg/dl (0.2-1.3); CREATININE 5.15 mg/dl (0.61-1.24); MAGNESIUM 1.9 mg/dl (1.7-2.5); PHOSPHORUS 4.5 mg/dl (2.5-4.9); POTASSIUM 4.2 mmol/L (3.5-5.1); TOTAL PROTEIN 3.9 g/dl (6.1-8.1)
[2016-08-15 05:34] LABS: CALCIUM 5.6 mg/dl (8.4-10.2)
[2016-08-15 05:38] LABS: LYMPHOCYTES % 4.2 % (15.0-51.0)
[2016-08-15] MEDS: PANTOPRAZOLE (EC) 40 MG TAB PO SCH (06:12)
[2016-08-15] MEDS: CALCIUM GLUCONATE 10% 1 GM in SOD CHLORIDE 0.9% 100 ML IVPB SCH ×2 (07:36→18:35)
[2016-08-15] MEDS: INSULIN ASPART [NOVOLOG] 3 ML PEN SC SCH ×7 (07:47→21:00)
[2016-08-15] MEDS: METOPROLOL 25 MG TAB GTB SCH ×2 (08:10→21:00)
[2016-08-15] MEDS: FAMOTIDINE 20 MG TAB PO SCH (08:21)
[2016-08-15] MEDS: FERROUS SULFATE (EC) 325 MG TAB PO SCH ×2 (08:21→21:40)
[2016-08-15] MEDS: ISONIAZID 300 MG TAB PO SCH (08:21)
[2016-08-15] MEDS: CALCIUM CARBONATE 500 MG CHEW TAB PO SCH ×3 (08:21→21:40)
[2016-08-15] MEDS: PYRIDOXINE 50 MG TAB PO SCH (08:21)
[2016-08-15] MEDS: CHOLECALCIFEROL 400 UNITS TAB PO SCH (08:21)
[2016-08-15] MEDS: MEROPENEM 500 MG/100 ML (PMX) 100 ML IVPB SCH (08:21)
[2016-08-15] MEDS: ASPIRIN (EC) 81 MG TAB PO SCH (08:21)
[2016-08-15] MEDS: CLOPIDOGREL 75 MG TAB PO SCH (08:21)
[2016-08-15] MEDS: INSULIN GLARGINE [LANtus] 3 ML PEN SC SCH (08:24)
[2016-08-15] MEDS ORDERED: CALCIUM CARBONATE 500 MG CHEW TAB PO SCH (09:00)
[2016-08-15] MEDS ORDERED: CALCIUM GLUCONATE 10% 1 GM in SOD CHLORIDE 0.9% 100 ML IVPB ONE (09:00)
[2016-08-15] MEDS ORDERED: CALCIUM GLUCONATE 10% 1 GM in SOD CHLORIDE 0.9% 100 ML IVPB SCH ×2 (09:00→21:00)
--- NOTE | 2016-08-15 09:22 | CONS ---
Date/Time of Note Date/Time of Note DATE: 08/15/16 TIME: 09:20 Assessment/Plan Assessment/Plan Additional Assessment/Plan Assessment recommendations; 1. Patient admitted for recurrent right pleural effusion status post VATS procedure with significant continuous drainage from the right chest tube. 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 2. 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 3. Underlying coronary artery disease status post bypass surgery in the past. 4. Chronic renal failure on hemodialysis. 5. Diabetes and hypertension. 6. Hypotension, requiring low-dose Levophed. Continue current treatment. Patient will likely need to have a Pleurx catheter placed. Prognosis is poor. Consultation Date/Type/Reason Admit Date/Time Jul 24, 2016 at 12:53 Initial Consult Date 07/25/16 Type of Consultation: Pulmonary/critical care Referring Provider: EVA COX MD 24 HR Interval Summary Free Text/Dictation Patient condition remains tenuous at best. No organ requiring Levophed at 4 mics per minute. Remains awake and alert. Denies any shortness of breath, fever chills chest pain. General exam; elderly male, awake alert currently in no distress. Exam/Review of Systems Vital Signs Vitals Vital Signs Date Time Temp Pulse Resp B/P Pulse Ox O2 Delivery O2 Flow Rate FiO2 08/15/16 06:30 97 17 88/62 100 08/15/16 06:00 Room Air 08/15/16 04:16 21 08/15/16 04:00 98.4 08/12/16 07:45 2.0 Intake and Output 08/14/16 08/14/16 08/15/16 15:00 23:00 07:00 Intake Total 1571.86 ml 2081.24 ml 1227.48 ml Output Total 1100 ml 1300 ml 1150 ml Balance 471.86 ml 781.24 ml 77.48 ml Exam HEENT exam; supple neck, no JVD. No lymphadenopathy. Midline trachea. No thyromegaly. Pharynx is clear. Pupils are midsize and reactive to light. No neck masses. Chest exam is; diminished breath sounds right lower lobe. Right-sided chest tube in place. Draining copious amounts of fluid daily. Left lung is clear to auscultation. S1-S2 audible, no murmurs. Regular rhythm. There is a well- healed sternal scar. Abdomen exam is; soft, nondistended, nontender. No organomegaly. Bowel sounds audible. Extremity exam is; no peripheral edema. [employer] examination; no focal deficit. Results Result Diagram: 08/15/16 0400 08/15/16 0400 Results 24 hrs Laboratory Tests Test 08/14/16 09:58 08/14/16 12:20 08/14/16 12:37 08/14/16 17:50 Bedside Glucose 199 284 H 243 H Hemoglobin 10.2 L Hematocrit 31.2 #L Test 08/14/16 20:00 08/14/16 20:34 08/15/16 02:24 08/15/16 04:00 Stool Occult Blood POSITIVE Bedside Glucose 122 175 White Blood Count 12.6 #H Red Blood Count 2.96 L Hemoglobin 9.5 L Hematocrit 28.3 L Mean Corpuscular Volume 95.6 Mean Corpuscular Hemoglobin 32.1 Mean Corpuscular Hemoglobin Concent 33.6 Red Cell Distribution Width 17.8 H Platelet Count 164 Mean Platelet Volume 10.7 H Neutrophils % 86.2 H Lymphocytes % 4.2 L Monocytes % 6.9 Eosinophils % 1.4 Basophils % 0.2 Nucleated Red Blood Cells % 0.0 Neutrophils # 10.8 H Lymphocytes # 0.5 L Monocytes # 0.9 Eosinophils # 0.2 Basophils # 0.0 Nucleated Red Blood Cells # 0.0 Sodium Level 127 L Potassium Level 4.2 Chloride Level 99 Carbon Dioxide Level 24 Anion Gap 8 Blood Urea Nitrogen 64 H Creatinine 5.15 H Glucose Level 200 Calcium Level 5.6 *L Phosphorus Level 4.5 Magnesium Level 1.9 Total Bilirubin 1.4 #H Direct Bilirubin 0.80 #H Indirect Bilirubin 0.6 Aspartate Amino Transf (AST/SGOT) 66 #H Alanine Aminotransferase (ALT/SGPT) 30 Alkaline Phosphatase 191 #H Total Protein 3.9 L Albumin 2.0 L Globulin 1.90 Albumin/Globulin Ratio 1.05 Test 08/15/16 07:43 Bedside Glucose 234 H Medications Medications Current Medications Aspirin (Halfprin) 81 mg DAILY PO Last administered on 08/15/16 08:21; Admin Dose 81 MG; Start 07/25/16 at 09:00; Status Future hold Atorvastatin Calcium (Lipitor) 10 mg QHS PO Last administered on 08/14/16 20: 40; Admin Dose 10 MG; Start 07/24/16 at 21:00 Cholecalciferol (Vitamin D) 400 units DAILY PO Last administered on 08/15/16 08:21; Admin Dose 400 UNITS; Start 07/25/16 at 09:00 Famotidine (Pepcid) 20 mg DAILY PO Last administered on 08/15/16 08:21; Admin Dose 20 MG; Start 07/25/16 at 09:00 Ferrous Sulfate (Ferrous Sulfate (Ec)) 325 mg BID PO Last administered on 08:21; Admin Dose 325 MG; Start 07/24/16 at 21:00 Acetaminophen/ Hydrocodone Bitart ([place] (5/325)) 1 tab Q4H PRN PO PAIN Last administered on 08/14/16 14:11; Admin Dose 1 TAB; Start 07/24/16 at 17:00 Isoniazid (Isoniazid) 300 mg DAILY PO Last administered on 08/15/16 08:21; Admin Dose 300 MG; Start 07/24/16 at 15:30 Pyridoxine HCl (Vitamin B6) 50 mg DAILY PO Last administered on 08/15/16 08:21 ; Admin Dose 50 MG; Start 07/25/16 at 09:00 Miscellaneous Information 1 ea NOTE XX ; Start 07/24/16 at 16:00 Glucose (Glutose) 15 gm Q15M PRN PO DECREASED GLUCOSE; Start 07/24/16 at 16:00 Glucose (Glutose) 22.5 gm Q15M PRN PO DECREASED GLUCOSE; Start 07/24/16 at 16: 00 Dextrose (D50w Syringe) 25 ml Q15M PRN IV DECREASED GLUCOSE; Start 07/24/16 at 16:00 Dextrose (D50w Syringe) 50 ml Q15M PRN IV DECREASED GLUCOSE; Start 07/24/16 at 16:00 Glucagon (Glucagen) 1 mg Q15M PRN IM DECREASED GLUCOSE; Start 07/24/16 at 16:00 Glucose (Glutose) 15 gm Q15M PRN BUCCAL DECREASED GLUCOSE; Start 07/24/16 at 16 :00 Ondansetron HCl (Zofran Inj) 4 mg Q4 PRN IV nausea Last administered on 19:03; Admin Dose 4 MG; Start 07/24/16 at 17:00 Metoclopramide HCl (Reglan) 5 mg Q4H PRN IV NAUSEA Last administered on 16:40; Admin Dose 5 MG; Start 07/24/16 at 22:30 Diagnostic Test (Pha) (Accu-Chek) 1 ea 02 XX Last administered on 08/15/16 02: 25; Admin Dose 1 EA; Start 07/26/16 at 12:00 Clonidine HCl (Catapres-Tts 2 Patch) 1 patch Q7D TRANSDERM Last administered on 08/03/16 06:32; Admin Dose 1 PATCH; Start 07/27/16 at 07:00; Status Future Hold Pantoprazole (Protonix Tab) 40 mg DAILY@06 PO Last administered on 08/15/16 06 :12; Admin Dose 40 MG; Start 07/28/16 at 06:00 Hydralazine HCl (Apresoline) 20 mg Q4 PRN IV ELEVATED BLOOD PRESSURE Last administered on 08/04/16 16:35; Admin Dose 20 MG; Start 07/28/16 at 02:00 Doxazosin Mesylate (Cardura) 2 mg HS PO Last administered on 08/05/16 21:57; Admin Dose 2 MG; Start 07/28/16 at 21:00; Status Future Hold Polyethylene Glycol (Miralax) 17 gm DAILY PRN GTB CONSTIPATION Last administered on 07/28/16 20:22; Admin Dose 17 GM; Start 07/28/16 at 19:30 Lorazepam (Ativan) 1 mg Q4H PRN IV anxiety Last administered on 07/30/16 20:48 ; Admin Dose 1 MG; Start 07/29/16 at 06:30 Ethambutol HCl (Myambutol) 900 mg TuThSa@20 PO Last administered on 08/13/16 21:41; Admin Dose 900 MG; Start 07/31/16 at 20:00 Pyrazinamide (Pyrazinamide) 1,250 mg TuThSa@20 PO Last administered on 21:44; Admin Dose 1,250 MG; Start 07/31/16 at 20:00 Hydromorphone HCl (Dilaudid) 1 mg Q2H PRN IV pain Last administered on 00:46; Admin Dose 1 MG; Start 08/02/16 at 19:00 Hydralazine HCl (Apresoline) 25 mg Q8 PO Last administered on 08/06/16 05:44; Admin Dose 25 MG; Start 08/04/16 at 22:00; Status Future Hold Nifedipine (Procardia Xl) 30 mg BID PO ; Start 08/07/16 at 21:00; Status Future Hold Zolpidem Tartrate (Ambien) 5 mg HS PRN PO INSOMNIA Last administered on 22:40; Admin Dose 5 MG; Start 08/08/16 at 21:00 Benazepril HCl (Lotensin) 10 mg BID PO ; Start 08/09/16 at 09:00; Status Future Hold Metoprolol Tartrate 25 mg 25 mg BID GTB Last administered on 08/14/16 20:42; Admin Dose 25 MG; Start 08/09/16 at 21:00 Norepinephrine 16 mg/Dextrose 500 ml @ 1.87 mls/hr TITRATE IV Last administered on 08/15/16 02:22; Admin Dose 1.87 MLS/HR; Start 08/09/16 at 15:30 Caspofungin 50 mg/ Sodium Chloride 250 ml @ 250 mls/hr Q24H IVPB Last administered on 08/14/16 17:48; Admin Dose 250 MLS/HR; Start 08/10/16 at 17:00 Sodium Chloride 1,000 ml @ 50 mls/hr Q20H IV Last administered on 08/14/16 17 :48; Admin Dose 50 MLS/HR; Start 08/09/16 at 17:30; Status Future Hold Dopamine HCl/ Dextrose (D5W) 250 ml @ 1.71 mls/hr TITRATE IV Last administered on 08/11/16 15:07; Admin Dose 11.43 MLS/HR; Start 08/10/16 at 15:30 Acetaminophen (Tylenol Tab) 650 mg Q6H PRN PO PAIN AND OR ELEVATED TEMP Last administered on 08/12/16 00:54; Admin Dose 650 MG; Start 08/10/16 at 16:30 Clopidogrel Bisulfate 75 mg 75 mg DAILY PO Last administered on 08/15/16 08:21 ; Admin Dose 75 MG; Start 08/11/16 at 12:00 Phenylephrine HCl 160 mg/Dextrose 500 ml @ 18.75 mls/ hr TITRATE IV ; Start 03/20 at 06:00 Sodium Bicarbonate 50 meq/Dextrose/ Sodium Chloride 1,050 ml @ 140 mls/hr Q7H30M IV Last administered on 08/15/16 08:20; Admin Dose 140 MLS/HR; Start at 07:00 Meropenem (Merrem 500 Mg/ 100 ml (Pmx)) 100 ml @ 200 mls/hr Q24H IVPB Last administered on 08/15/16 08:21; Admin Dose 200 MLS/HR; Start 08/13/16 at 09:00 Insulin Glargine (Lantus) 12 unit DAILY SC Last administered on 08/15/16 08:24 ; Admin Dose 12 UNIT; Start 08/13/16 at 11:00 Epoetin Tutu (Epogen (Esrd)) 3,000 units TuThSa@17 SC ; Start 08/14/16 at 17:00 Epoetin Tutu (Epogen (Esrd)) 2,000 units TuThSa@17 SC ; Start 08/14/16 at 17:00 Triglycerides 10 ml 10 ml Q6 PO Last administered on 08/15/16 06:12; Admin Dose 10 ML; Start 08/14/16 at 12:30 Vancomycin HCl (Vancocin) 250 ml @ 125 mls/hr Q96H IVPB Last administered on 15:43; Admin Dose 125 MLS/HR; Start 08/14/16 at 15:00 Levofloxacin 750 mg 750 mg TuThSa PO Last administered on 08/14/16 20:42; Admin Dose 750 MG; Start 08/14/16 at 20:00 Calcium Gluconate/ Sodium Chloride (Ca Gluc/NS) 110 ml @ 110 mls/hr Q12H IVPB Last administered on 08/15/16 07:36; Admin Dose 110 MLS/HR; Start 08/15/16 at 06:00; Stop 08/15/16 at 18:59 Calcium Carbonate (Tums) 500 mg TID PO Last administered on 08/15/16 08:21; Admin Dose 500 MG; Start 08/15/16 at 09:00 BOONE POLO Aug 15, 2016 09:22
--- NOTE | 2016-08-15 10:59 | CONS ---
Date/Time of Note Date/Time of Note DATE: 08/15/16 TIME: 10:49 Assessment/Plan Assessment/Plan Chief Complaint/Hosp Course - possible tubercular empyema: R sided complex loculated air containing empyemas , visceral and parietal pleural calcifications. - a 35 mm lesion with possible cavitation in the anterior inferior RUL, possible recurrent tuberculosis - high risk for TB: history (originally from [facility], spends one month of each year in [facility], last in 09/2015), medical history (DM, ESRD), laboratory findings (positive quantiferon TB gold, granulomatous inflammation with focal necrosis on Bx of pleura) - AFB smear was negative x3, also M. tuberculosis DNA probe to the 1st sputum sample was undetectable in early 07/2016 - s/p first R VATS, total pulmonary decortication, R pleurodesis on 06/30/2016. Biopsy was negative for fungal stain and AFB stain (micro lab and pathology department), as well as malignancy. It showed granulomatous inflammation with focal necrosis and extensive hyalinization. - s/p second R VATS, decortication thoracotomy on 08/04/2016. Per Dr. Martinez, the tissue did not appear empyema. It was largely blood clots and tissue debris. Fluid was sent for cultures, but not tissue. Path showed blood and polarizable foreign material, no malignancy - sputum collected on 08/02/2016 was negative for mycobacterium tuberculosis DNA probe - h/o recurrent pleural effusion requiring thoracentesis approximately once a year, last performed in 04/2016 prior to this admission - positive quantiferon TB gold status of unknown duration. Per Pt, his past PPD was done in 2013, and was negative. - Our infection internal control consultant Lindsey contacted the TB control unit at [facility]: we learned on 07/11/2016 that Pt has h/o mycobacterial tuberculosis infection in 1997 and was treated between 1997 and 1998. - DM s/p hypoglycemic episode on 08/04/16 & 08/06/16 (Hgb A1c 5.2% on 06/17/16 unreliable d/t recent blood transfusion; Hgb A1c 8.6% on 05/03/15) - ESRD on HD - CAD s/p CABG in 2010 and cardiac stent in 2013 - Moderate to severe protein calorie malnutrition - HIV screen negative in 07/2016 tested at [facility] - Sepsis vs SIRS - Hypotension requiring Levophed and Dopamine - Hyperbilirubinemia - mycobacterium tuberculosis DNA probe to fluid in G[facility]O bulb was sent on 08/06/2016- --> negative Recommendations - await procalc, [id number] - D/c Vanco - continue empiric abx: jae/micafungin-- likely to finish 7 days empiric Meropenem through 08.08.16, if [id number] negative then d/c micafungin - cont. renally dosed Levaquin - continue renally dosed isoniazid, pyrazinamide, ethambutol and vitamin B6 supplement (07/12/2016-) - awaiting cocci CF and crypto antigen in serum---sent 08.12.16 - Dr. Saunders at TB unit to send pleural biopsy to [facility] for more testing-- awaiting results - check LFTs' weekly - consider repeat CT chest Problems: Consultation Date/Type/Reason Admit Date/Time Jul 24, 2016 at 12:53 Initial Consult Date 07/24/16 Type of Consultation: id Referring Provider: EVA COX MD 24 HR Interval Summary Free Text/Dictation d/w ISABEL Rees. patient notes he is having n/v Exam/Review of Systems Vital Signs Vitals Vital Signs Date Time Temp Pulse Resp B/P Pulse Ox O2 Delivery O2 Flow Rate FiO2 08/15/16 09:30 115 17 128/85 100 08/15/16 09:00 Room Air 08/15/16 08:00 98.8 08/15/16 04:16 21 08/12/16 07:45 2.0 Intake and Output 08/14/16 08/14/16 08/15/16 15:00 23:00 07:00 Intake Total 1571.86 ml 2081.24 ml 1227.48 ml Output Total 1100 ml 1300 ml 1150 ml Balance 471.86 ml 781.24 ml 77.48 ml Exam Constitutional: alert, oriented, well developed Psych: nl mood/affect, no complaints Head: atraumatic, normocephalic Eyes: EOMI, PERRL, nl conjunctiva, nl lids, nl sclera ENMT: nl external ears & nose, nl lips & teeth, nl nasal mucosa & septum Neck: non-tender, supple Respiratory: clear to auscultation, normal air movement Cardiovascular: nl pulses, regular rate and rhythm Gastrointestinal: nl liver, spleen, non-tender, soft Results Result Diagram: 08/15/16 0400 08/15/16 0400 Results 24 hrs Laboratory Tests Test 08/14/16 12:20 08/14/16 12:37 08/14/16 17:50 08/14/16 20:00 Hemoglobin 10.2 L Hematocrit 31.2 #L Bedside Glucose 284 H 243 H Stool Occult Blood POSITIVE Test 08/14/16 20:34 08/15/16 02:24 08/15/16 04:00 08/15/16 07:43 Bedside Glucose 122 175 234 H White Blood Count 12.6 #H Red Blood Count 2.96 L Hemoglobin 9.5 L Hematocrit 28.3 L Mean Corpuscular Volume 95.6 Mean Corpuscular Hemoglobin 32.1 Mean Corpuscular Hemoglobin Concent 33.6 Red Cell Distribution Width 17.8 H Platelet Count 164 Mean Platelet Volume 10.7 H Neutrophils % 86.2 H Lymphocytes % 4.2 L Monocytes % 6.9 Eosinophils % 1.4 Basophils % 0.2 Nucleated Red Blood Cells % 0.0 Neutrophils # 10.8 H Lymphocytes # 0.5 L Monocytes # 0.9 Eosinophils # 0.2 Basophils # 0.0 Nucleated Red Blood Cells # 0.0 Sodium Level 127 L Potassium Level 4.2 Chloride Level 99 Carbon Dioxide Level 24 Anion Gap 8 Blood Urea Nitrogen 64 H Creatinine 5.15 H Glucose Level 200 Calcium Level 5.6 *L Phosphorus Level 4.5 Magnesium Level 1.9 Total Bilirubin 1.4 #H Direct Bilirubin 0.80 #H Indirect Bilirubin 0.6 Aspartate Amino Transf (AST/SGOT) 66 #H Alanine Aminotransferase (ALT/SGPT) 30 Alkaline Phosphatase 191 #H Total Protein 3.9 L Albumin 2.0 L Globulin 1.90 Albumin/Globulin Ratio 1.05 Medications Medications Current Medications Aspirin (Halfprin) 81 mg DAILY PO Last administered on 08/15/16 08:21; Admin Dose 81 MG; Start 07/25/16 at 09:00; Status Future hold Atorvastatin Calcium (Lipitor) 10 mg QHS PO Last administered on 08/14/16 20: 40; Admin Dose 10 MG; Start 07/24/16 at 21:00 Cholecalciferol (Vitamin D) 400 units DAILY PO Last administered on 08/15/16 08:21; Admin Dose 400 UNITS; Start 07/25/16 at 09:00 Famotidine (Pepcid) 20 mg DAILY PO Last administered on 08/15/16 08:21; Admin Dose 20 MG; Start 07/25/16 at 09:00 Ferrous Sulfate (Ferrous Sulfate (Ec)) 325 mg BID PO Last administered on 08:21; Admin Dose 325 MG; Start 07/24/16 at 21:00 Acetaminophen/ Hydrocodone Bitart ([place] (5/325)) 1 tab Q4H PRN PO PAIN Last administered on 08/14/16 14:11; Admin Dose 1 TAB; Start 07/24/16 at 17:00 Isoniazid (Isoniazid) 300 mg DAILY PO Last administered on 08/15/16 08:21; Admin Dose 300 MG; Start 07/24/16 at 15:30 Pyridoxine HCl (Vitamin B6) 50 mg DAILY PO Last administered on 08/15/16 08:21 ; Admin Dose 50 MG; Start 07/25/16 at 09:00 Miscellaneous Information 1 ea NOTE XX ; Start 07/24/16 at 16:00 Glucose (Glutose) 15 gm Q15M PRN PO DECREASED GLUCOSE; Start 07/24/16 at 16:00 Glucose (Glutose) 22.5 gm Q15M PRN PO DECREASED GLUCOSE; Start 07/24/16 at 16: 00 Dextrose (D50w Syringe) 25 ml Q15M PRN IV DECREASED GLUCOSE; Start 07/24/16 at 16:00 Dextrose (D50w Syringe) 50 ml Q15M PRN IV DECREASED GLUCOSE; Start 07/24/16 at 16:00 Glucagon (Glucagen) 1 mg Q15M PRN IM DECREASED GLUCOSE; Start 07/24/16 at 16:00 Glucose (Glutose) 15 gm Q15M PRN BUCCAL DECREASED GLUCOSE; Start 07/24/16 at 16 :00 Ondansetron HCl (Zofran Inj) 4 mg Q4 PRN IV nausea Last administered on 19:03; Admin Dose 4 MG; Start 07/24/16 at 17:00 Metoclopramide HCl (Reglan) 5 mg Q4H PRN IV NAUSEA Last administered on 16:40; Admin Dose 5 MG; Start 07/24/16 at 22:30 Diagnostic Test (Pha) (Accu-Chek) 1 ea 02 XX Last administered on 08/15/16 02: 25; Admin Dose 1 EA; Start 07/26/16 at 12:00 Clonidine HCl (Catapres-Tts 2 Patch) 1 patch Q7D TRANSDERM Last administered on 08/03/16 06:32; Admin Dose 1 PATCH; Start 07/27/16 at 07:00; Status Future Hold Pantoprazole (Protonix Tab) 40 mg DAILY@06 PO Last administered on 08/15/16 06 :12; Admin Dose 40 MG; Start 07/28/16 at 06:00 Hydralazine HCl (Apresoline) 20 mg Q4 PRN IV ELEVATED BLOOD PRESSURE Last administered on 08/04/16 16:35; Admin Dose 20 MG; Start 07/28/16 at 02:00 Doxazosin Mesylate (Cardura) 2 mg HS PO Last administered on 08/05/16 21:57; Admin Dose 2 MG; Start 07/28/16 at 21:00; Status Future Hold Polyethylene Glycol (Miralax) 17 gm DAILY PRN GTB CONSTIPATION Last administered on 07/28/16 20:22; Admin Dose 17 GM; Start 07/28/16 at 19:30 Lorazepam (Ativan) 1 mg Q4H PRN IV anxiety Last administered on 07/30/16 20:48 ; Admin Dose 1 MG; Start 07/29/16 at 06:30 Ethambutol HCl (Myambutol) 900 mg TuThSa@20 PO Last administered on 08/13/16 21:41; Admin Dose 900 MG; Start 07/31/16 at 20:00 Pyrazinamide (Pyrazinamide) 1,250 mg TuThSa@20 PO Last administered on 21:44; Admin Dose 1,250 MG; Start 07/31/16 at 20:00 Hydromorphone HCl (Dilaudid) 1 mg Q2H PRN IV pain Last administered on 00:46; Admin Dose 1 MG; Start 08/02/16 at 19:00 Hydralazine HCl (Apresoline) 25 mg Q8 PO Last administered on 08/06/16 05:44; Admin Dose 25 MG; Start 08/04/16 at 22:00; Status Future Hold Nifedipine (Procardia Xl) 30 mg BID PO ; Start 08/07/16 at 21:00; Status Future Hold Zolpidem Tartrate (Ambien) 5 mg HS PRN PO INSOMNIA Last administered on 22:40; Admin Dose 5 MG; Start 08/08/16 at 21:00 Benazepril HCl (Lotensin) 10 mg BID PO ; Start 08/09/16 at 09:00; Status Future Hold Metoprolol Tartrate 25 mg 25 mg BID GTB Last administered on 08/14/16 20:42; Admin Dose 25 MG; Start 08/09/16 at 21:00 Norepinephrine 16 mg/Dextrose 500 ml @ 1.87 mls/hr TITRATE IV Last administered on 08/15/16 02:22; Admin Dose 1.87 MLS/HR; Start 08/09/16 at 15:30 Caspofungin 50 mg/ Sodium Chloride 250 ml @ 250 mls/hr Q24H IVPB Last administered on 08/14/16 17:48; Admin Dose 250 MLS/HR; Start 08/10/16 at 17:00 Sodium Chloride 1,000 ml @ 50 mls/hr Q20H IV Last administered on 08/14/16 17 :48; Admin Dose 50 MLS/HR; Start 08/09/16 at 17:30; Status Future Hold Dopamine HCl/ Dextrose (D5W) 250 ml @ 1.71 mls/hr TITRATE IV Last administered on 08/11/16 15:07; Admin Dose 11.43 MLS/HR; Start 08/10/16 at 15:30 Acetaminophen (Tylenol Tab) 650 mg Q6H PRN PO PAIN AND OR ELEVATED TEMP Last administered on 08/12/16 00:54; Admin Dose 650 MG; Start 08/10/16 at 16:30 Clopidogrel Bisulfate 75 mg 75 mg DAILY PO Last administered on 08/15/16 08:21 ; Admin Dose 75 MG; Start 08/11/16 at 12:00 Phenylephrine HCl 160 mg/Dextrose 500 ml @ 18.75 mls/ hr TITRATE IV ; Start 03/20 at 06:00 Sodium Bicarbonate 50 meq/Dextrose/ Sodium Chloride 1,050 ml @ 140 mls/hr Q7H30M IV Last administered on 08/15/16 08:20; Admin Dose 140 MLS/HR; Start at 07:00 Meropenem (Merrem 500 Mg/ 100 ml (Pmx)) 100 ml @ 200 mls/hr Q24H IVPB Last administered on 08/15/16 08:21; Admin Dose 200 MLS/HR; Start 08/13/16 at 09:00 Epoetin Tutu (Epogen (Esrd)) 3,000 units TuThSa@17 SC ; Start 08/14/16 at 17:00 Epoetin Tutu (Epogen (Esrd)) 2,000 units TuThSa@17 SC ; Start 08/14/16 at 17:00 Triglycerides 10 ml 10 ml Q6 PO Last administered on 08/15/16 06:12; Admin Dose 10 ML; Start 08/14/16 at 12:30 Vancomycin HCl (Vancocin) 250 ml @ 125 mls/hr Q96H IVPB Last administered on 15:43; Admin Dose 125 MLS/HR; Start 08/14/16 at 15:00 Levofloxacin 750 mg 750 mg TuThSa PO Last administered on 08/14/16 20:42; Admin Dose 750 MG; Start 08/14/16 at 20:00 Calcium Gluconate/ Sodium Chloride (Ca Gluc/NS) 110 ml @ 110 mls/hr Q12H IVPB Last administered on 08/15/16 07:36; Admin Dose 110 MLS/HR; Start 08/15/16 at 06:00; Stop 08/15/16 at 18:59 Calcium Carbonate (Tums) 500 mg TID PO Last administered on 08/15/16 08:21; Admin Dose 500 MG; Start 08/15/16 at 09:00 Insulin Glargine (Lantus) 15 unit DAILY SC ; Start 08/16/16 at 09:00 BRENDA ISRAEL MD Aug 15, 2016 10:59
[2016-08-15] MEDS ORDERED: ALTEPLASE (CATHFLO) 2 MG INJ CATHETER ONE (11:30)
--- NOTE | 2016-08-15 12:30 | CONS ---
Date/Time of Note Date/Time of Note DATE: 08/15/16 TIME: 12:26 Assessment/Plan Assessment/Plan Chief Complaint/Hosp Course IMPRESSION: 1. Abnormal electrocardiogram, assess for acute coronary syndrome with recurrent chest pain now and recently negative stress test.-negative troponin x 3 2. History of a percutaneous transluminal coronary angioplasty and stent placement to left main and left anterior descending in 2014. 3. History of coronary artery bypass graft surgery. 4. Video assisted thoracoscopic surgery pleurodesis with leakage from the chest tube site.- now s/p repeat VATS/pleurodesis with CT with significant outpaut over the last 8 hours 5. Shortness of breath. 6. End-stage renal disease on hemodialysis. 7. Tuberculosis, on therapy. 8. Hypotension-recurrent today 9. Diabetes mellitus. 10. Dyslipidemia. 11. Anemia-acute worsening 12.Empyema/cavitary lesions by CT Recc: -Tele -Follow BP closely and wean levo as tolerated -Continue Plavix/asa as tolerated -HD for volume removal as tolerated only -continue TB treatment -Follow CT output closely with ongoing surgical eval -Continue abx's and f/u cx data -Continue statin -Continue broad spectrum abx's and f/u cx data closely -Hold BB -HD for volume removal as tolerated only Problems: Consultation Date/Type/Reason Admit Date/Time Jul 24, 2016 at 12:53 Initial Consult Date 07/24/16 Type of Consultation: Cardiology Reason for Consultation CHF Referring Provider: EVA COX MD Exam/Review of Systems Vital Signs Vitals Vital Signs Date Time Temp Pulse Resp B/P Pulse Ox O2 Delivery O2 Flow Rate FiO2 08/15/16 09:30 115 17 128/85 100 08/15/16 09:00 Room Air 08/15/16 08:00 98.8 08/15/16 04:16 21 08/12/16 07:45 2.0 Intake and Output 08/14/16 08/14/16 08/15/16 15:00 23:00 07:00 Intake Total 1571.86 ml 2081.24 ml 1227.48 ml Output Total 1100 ml 1300 ml 1150 ml Balance 471.86 ml 781.24 ml 77.48 ml Exam Review of Systems: CONSTITUTIONAL: No fevers, chills. PULMONARY: No sob CARDIOVASCULAR: No chest pain/palpitations GASTROINTESTINAL: No nausea/vomiting. GENITOURINARY: No hematuria/dysuria. MUSCULOSKELETAL: No myagias/arthalgias. PSYCHIATRIC: The patient denies depression. NEUROLOGIC: No weakness Constitutional: alert Psych: no complaints Head: normocephalic ENMT: mucosa pink and moist Neck: jvd, supple Respiratory: diminished breath sounds Cardiovascular: regular rate and rhythm Gastrointestinal: soft Musculoskeletal: muscle tone Extremities: edema (none) Neurological: other (No focal deficits) Results Result Diagram: 08/15/160 08/15/160 Results 24 hrs Laboratory Tests Test 08/14/16 12:37 08/14/16 17:50 08/14/16 20:00 08/14/16 20:34 Bedside Glucose 284 H 243 H 122 Stool Occult Blood POSITIVE Test 08/15/16 02:24 08/15/16 04:00 08/15/16 07:43 08/15/16 11:49 Bedside Glucose 175 234 H 98 White Blood Count 12.6 #H Red Blood Count 2.96 L Hemoglobin 9.5 L Hematocrit 28.3 L Mean Corpuscular Volume 95.6 Mean Corpuscular Hemoglobin 32.1 Mean Corpuscular Hemoglobin Concent 33.6 Red Cell Distribution Width 17.8 H Platelet Count 164 Mean Platelet Volume 10.7 H Neutrophils % 86.2 H Lymphocytes % 4.2 L Monocytes % 6.9 Eosinophils % 1.4 Basophils % 0.2 Nucleated Red Blood Cells % 0.0 Neutrophils # 10.8 H Lymphocytes # 0.5 L Monocytes # 0.9 Eosinophils # 0.2 Basophils # 0.0 Nucleated Red Blood Cells # 0.0 Sodium Level 127 L Potassium Level 4.2 Chloride Level 99 Carbon Dioxide Level 24 Anion Gap 8 Blood Urea Nitrogen 64 H Creatinine 5.15 H Glucose Level 200 Calcium Level 5.6 *L Phosphorus Level 4.5 Magnesium Level 1.9 Total Bilirubin 1.4 #H Direct Bilirubin 0.80 #H Indirect Bilirubin 0.6 Aspartate Amino Transf (AST/SGOT) 66 #H Alanine Aminotransferase (ALT/SGPT) 30 Alkaline Phosphatase 191 #H Total Protein 3.9 L Albumin 2.0 L Globulin 1.90 Albumin/Globulin Ratio 1.05 Medications Medications Current Medications Aspirin (Halfprin) 81 mg DAILY PO Last administered on 08/15/16t 08:21; Admin Dose 81 MG; Start 07/25/16 at 09:00; Status Future hold Atorvastatin Calcium (Lipitor) 10 mg QHS PO Last administered on 08/14/16 20: 40; Admin Dose 10 MG; Start 07/24/16 at 21:00 Cholecalciferol (Vitamin D) 400 units DAILY PO Last administered on 08/15/16 08:21; Admin Dose 400 UNITS; Start 07/25/16 at 09:00 Famotidine (Pepcid) 20 mg DAILY PO Last administered on 08/15/16 08:21; Admin Dose 20 MG; Start 07/25/16 at 09:00 Ferrous Sulfate (Ferrous Sulfate (Ec)) 325 mg BID PO Last administered on 08:21; Admin Dose 325 MG; Start 07/24/16 at 21:00 Acetaminophen/ Hydrocodone Bitart ([place] (5/325)) 1 tab Q4H PRN PO PAIN Last administered on 08/14/16 14:11; Admin Dose 1 TAB; Start 07/24/16 at 17:00 Isoniazid (Isoniazid) 300 mg DAILY PO Last administered on 08/15/16 08:21; Admin Dose 300 MG; Start 07/24/16 at 15:30 Pyridoxine HCl (Vitamin B6) 50 mg DAILY PO Last administered on 08/15/16 08:21 ; Admin Dose 50 MG; Start 07/25/16 at 09:00 Miscellaneous Information 1 ea NOTE XX ; Start 07/24/16 at 16:00 Glucose (Glutose) 15 gm Q15M PRN PO DECREASED GLUCOSE; Start 07/24/16 at 16:00 Glucose (Glutose) 22.5 gm Q15M PRN PO DECREASED GLUCOSE; Start 07/24/16 at 16: 00 Dextrose (D50w Syringe) 25 ml Q15M PRN IV DECREASED GLUCOSE; Start 07/24/16 at 16:00 Dextrose (D50w Syringe) 50 ml Q15M PRN IV DECREASED GLUCOSE; Start 07/24/16 at 16:00 Glucagon (Glucagen) 1 mg Q15M PRN IM DECREASED GLUCOSE; Start 07/24/16 at 16:00 Glucose (Glutose) 15 gm Q15M PRN BUCCAL DECREASED GLUCOSE; Start 07/24/16 at 16 :00 Ondansetron HCl (Zofran Inj) 4 mg Q4 PRN IV nausea Last administered on 19:03; Admin Dose 4 MG; Start 07/24/16 at 17:00 Metoclopramide HCl (Reglan) 5 mg Q4H PRN IV NAUSEA Last administered on 16:40; Admin Dose 5 MG; Start 07/24/16 at 22:30 Diagnostic Test (Pha) (Accu-Chek) 1 ea 02 XX Last administered on 08/15/16 02: 25; Admin Dose 1 EA; Start 07/26/16 at 12:00 Clonidine HCl (Catapres-Tts 2 Patch) 1 patch Q7D TRANSDERM Last administered on 08/03/16 06:32; Admin Dose 1 PATCH; Start 07/27/16 at 07:00; Status Future Hold Pantoprazole (Protonix Tab) 40 mg DAILY@06 PO Last administered on 08/15/16 06 :12; Admin Dose 40 MG; Start 07/28/16 at 06:00 Hydralazine HCl (Apresoline) 20 mg Q4 PRN IV ELEVATED BLOOD PRESSURE Last administered on 08/04/16 16:35; Admin Dose 20 MG; Start 07/28/16 at 02:00 Doxazosin Mesylate (Cardura) 2 mg HS PO Last administered on 08/05/16 21:57; Admin Dose 2 MG; Start 07/28/16 at 21:00; Status Future Hold Polyethylene Glycol (Miralax) 17 gm DAILY PRN GTB CONSTIPATION Last administered on 07/28/16 20:22; Admin Dose 17 GM; Start 07/28/16 at 19:30 Lorazepam (Ativan) 1 mg Q4H PRN IV anxiety Last administered on 07/30/16 20:48 ; Admin Dose 1 MG; Start 07/29/16 at 06:30 Ethambutol HCl (Myambutol) 900 mg TuThSa@20 PO Last administered on 08/13/16 21:41; Admin Dose 900 MG; Start 07/31/16 at 20:00 Pyrazinamide (Pyrazinamide) 1,250 mg TuThSa@20 PO Last administered on 21:44; Admin Dose 1,250 MG; Start 07/31/16 at 20:00 Hydromorphone HCl (Dilaudid) 1 mg Q2H PRN IV pain Last administered on 00:46; Admin Dose 1 MG; Start 08/02/16 at 19:00 Hydralazine HCl (Apresoline) 25 mg Q8 PO Last administered on 08/06/16 05:44; Admin Dose 25 MG; Start 08/04/16 at 22:00; Status Future Hold Nifedipine (Procardia Xl) 30 mg BID PO ; Start 08/07/16 at 21:00; Status Future Hold Zolpidem Tartrate (Ambien) 5 mg HS PRN PO INSOMNIA Last administered on 22:40; Admin Dose 5 MG; Start 08/08/16 at 21:00 Benazepril HCl (Lotensin) 10 mg BID PO ; Start 08/09/16 at 09:00; Status Future Hold Metoprolol Tartrate 25 mg 25 mg BID GTB Last administered on 08/14/16 20:42; Admin Dose 25 MG; Start 08/09/16 at 21:00 Norepinephrine 16 mg/Dextrose 500 ml @ 1.87 mls/hr TITRATE IV Last administered on 08/15/16 02:22; Admin Dose 1.87 MLS/HR; Start 08/09/16 at 15:30 Caspofungin 50 mg/ Sodium Chloride 250 ml @ 250 mls/hr Q24H IVPB Last administered on 08/14/16 17:48; Admin Dose 250 MLS/HR; Start 08/10/16 at 17:00 Sodium Chloride 1,000 ml @ 50 mls/hr Q20H IV Last administered on 08/14/16 17 :48; Admin Dose 50 MLS/HR; Start 08/09/16 at 17:30; Status Future Hold Dopamine HCl/ Dextrose (D5W) 250 ml @ 1.71 mls/hr TITRATE IV Last administered on 08/11/16 15:07; Admin Dose 11.43 MLS/HR; Start 08/10/16 at 15:30 Acetaminophen (Tylenol Tab) 650 mg Q6H PRN PO PAIN AND OR ELEVATED TEMP Last administered on 08/12/16 00:54; Admin Dose 650 MG; Start 08/10/16 at 16:30 Clopidogrel Bisulfate 75 mg 75 mg DAILY PO Last administered on 08/15/16 08:21 ; Admin Dose 75 MG; Start 08/11/16 at 12:00 Phenylephrine HCl 160 mg/Dextrose 500 ml @ 18.75 mls/ hr TITRATE IV ; Start 03/20 at 06:00 Sodium Bicarbonate 50 meq/Dextrose/ Sodium Chloride 1,050 ml @ 140 mls/hr Q7H30M IV Last administered on 08/15/16 08:20; Admin Dose 140 MLS/HR; Start at 07:00 Meropenem (Merrem 500 Mg/ 100 ml (Pmx)) 100 ml @ 200 mls/hr Q24H IVPB Last administered on 08/15/16 08:21; Admin Dose 200 MLS/HR; Start 08/13/16 at 09:00 Epoetin Tutu (Epogen (Esrd)) 3,000 units TuThSa@17 SC ; Start 08/14/16 at 17:00 Epoetin Tutu (Epogen (Esrd)) 2,000 units TuThSa@17 SC ; Start 08/14/16 at 17:00 Triglycerides (Mct Oil (Ped)) 10 ml Q6 PO Last administered on 08/15/16 06:12 ; Admin Dose 10 ML; Start 08/14/16 at 12:30 Levofloxacin 750 mg 750 mg TuThSa PO Last administered on 08/14/16 20:42; Admin Dose 750 MG; Start 08/14/16 at 20:00 Calcium Gluconate/ Sodium Chloride (Ca Gluc/NS) 110 ml @ 110 mls/hr Q12H IVPB Last administered on 08/15/16 07:36; Admin Dose 110 MLS/HR; Start 08/15/16 at 06:00; Stop 08/15/16 at 18:59 Calcium Carbonate (Tums) 500 mg TID PO Last administered on 08/15/16 08:21; Admin Dose 500 MG; Start 08/15/16 at 09:00 Insulin Glargine (Lantus) 15 unit DAILY SC ; Start 08/16/16 at 09:00 SHERITA CSOTT Aug 15, 2016 12:30
[2016-08-15] MEDS: ONDANSETRON 4 MG INJ IV PRN ×2 (13:55→21:40)
--- NOTE | 2016-08-15 14:57 | CONS ---
Date/Time of Note Date/Time of Note DATE: 08/15/16 TIME: 14:53 Assessment/Plan Assessment/Plan Chief Complaint/Hosp Course IMPRESSION: 1. Recurrent pleural effusions. s/p vats 2. Lung infiltrate./cavitary lesion 3. chronic lung disease. 4. Hypotension better 5. Diabetes mellitus. 6. End-stage renal disease. 7. anemia. 8. cad. 9. hypotension 10. ashd 11. PLEURAL EFFUSIN 12. The patient on anti-tuberculosis treatment. 13. 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 14 dehydration on iv fluid 15 hypocalcemia w low albumin 16 poss thoracic duct injury PLAN per id and surg ctube care hd iv fluid albumin tums tpn,mediun chain triglyceride and lipid iv calcium iv calcium Problems: Consultation Date/Type/Reason Admit Date/Time Jul 24, 2016 at 12:53 Initial Consult Date 07/25/16 Type of Consultation: renal Referring Provider: EVA COX MD 24 HR Interval Summary Constitutional: other (malfunctioning hd cath) Exam/Review of Systems Vital Signs Vitals Vital Signs Date Time Temp Pulse Resp B/P Pulse Ox O2 Delivery O2 Flow Rate FiO2 08/15/16 14:15 124 14 71/48 99 08/15/16 14:00 Room Air 08/15/16 12:00 98.5 08/15/16 04:16 21 08/12/16 07:45 2.0 Intake and Output 08/14/16 08/14/16 08/15/16 15:00 23:00 07:00 Intake Total 1571.86 ml 2081.24 ml 1227.48 ml Output Total 1100 ml 1300 ml 1150 ml Balance 471.86 ml 781.24 ml 77.48 ml Exam Neck: supple Respiratory: clear to auscultation Cardiovascular: regular rate and rhythm Gastrointestinal: bowel sounds (+), soft Extremities: normal pulses, No edema Results Result Diagram: 08/15/16 0400 08/15/16 0400 Results 24 hrs Laboratory Tests Test 08/14/16 17:50 08/14/16 20:00 08/14/16 20:34 08/15/16 02:24 Bedside Glucose 243 H 122 175 Stool Occult Blood POSITIVE Test 08/15/16 04:00 08/15/16 07:43 08/15/16 11:49 White Blood Count 12.6 #H Red Blood Count 2.96 L Hemoglobin 9.5 L Hematocrit 28.3 L Mean Corpuscular Volume 95.6 Mean Corpuscular Hemoglobin 32.1 Mean Corpuscular Hemoglobin Concent 33.6 Red Cell Distribution Width 17.8 H Platelet Count 164 Mean Platelet Volume 10.7 H Neutrophils % 86.2 H Lymphocytes % 4.2 L Monocytes % 6.9 Eosinophils % 1.4 Basophils % 0.2 Nucleated Red Blood Cells % 0.0 Neutrophils # 10.8 H Lymphocytes # 0.5 L Monocytes # 0.9 Eosinophils # 0.2 Basophils # 0.0 Nucleated Red Blood Cells # 0.0 Sodium Level 127 L Potassium Level 4.2 Chloride Level 99 Carbon Dioxide Level 24 Anion Gap 8 Blood Urea Nitrogen 64 H Creatinine 5.15 H Glucose Level 200 Calcium Level 5.6 *L Phosphorus Level 4.5 Magnesium Level 1.9 Total Bilirubin 1.4 #H Direct Bilirubin 0.80 #H Indirect Bilirubin 0.6 Aspartate Amino Transf (AST/SGOT) 66 #H Alanine Aminotransferase (ALT/SGPT) 30 Alkaline Phosphatase 191 #H Total Protein 3.9 L Albumin 2.0 L Globulin 1.90 Albumin/Globulin Ratio 1.05 Bedside Glucose 234 H 98 Medications Medications Current Medications Aspirin (Halfprin) 81 mg DAILY PO Last administered on 08/15/16 08:21; Admin Dose 81 MG; Start 07/25/16 at 09:00; Status Future hold Atorvastatin Calcium (Lipitor) 10 mg QHS PO Last administered on 08/14/16 20: 40; Admin Dose 10 MG; Start 07/24/16 at 21:00 Cholecalciferol (Vitamin D) 400 units DAILY PO Last administered on 08/15/16 08:21; Admin Dose 400 UNITS; Start 07/25/16 at 09:00 Famotidine (Pepcid) 20 mg DAILY PO Last administered on 08/15/16 08:21; Admin Dose 20 MG; Start 07/25/16 at 09:00 Ferrous Sulfate (Ferrous Sulfate (Ec)) 325 mg BID PO Last administered on 08:21; Admin Dose 325 MG; Start 07/24/16 at 21:00 Acetaminophen/ Hydrocodone Bitart ([place] (5/325)) 1 tab Q4H PRN PO PAIN Last administered on 08/14/16 14:11; Admin Dose 1 TAB; Start 07/24/16 at 17:00 Isoniazid (Isoniazid) 300 mg DAILY PO Last administered on 08/15/16 08:21; Admin Dose 300 MG; Start 07/24/16 at 15:30 Pyridoxine HCl (Vitamin B6) 50 mg DAILY PO Last administered on 08/15/16 08:21 ; Admin Dose 50 MG; Start 07/25/16 at 09:00 Miscellaneous Information 1 ea NOTE XX ; Start 07/24/16 at 16:00 Glucose (Glutose) 15 gm Q15M PRN PO DECREASED GLUCOSE; Start 07/24/16 at 16:00 Glucose (Glutose) 22.5 gm Q15M PRN PO DECREASED GLUCOSE; Start 07/24/16 at 16: 00 Dextrose (D50w Syringe) 25 ml Q15M PRN IV DECREASED GLUCOSE; Start 07/24/16 at 16:00 Dextrose (D50w Syringe) 50 ml Q15M PRN IV DECREASED GLUCOSE; Start 07/24/16 at 16:00 Glucagon (Glucagen) 1 mg Q15M PRN IM DECREASED GLUCOSE; Start 07/24/16 at 16:00 Glucose (Glutose) 15 gm Q15M PRN BUCCAL DECREASED GLUCOSE; Start 07/24/16 at 16 :00 Ondansetron HCl (Zofran Inj) 4 mg Q4 PRN IV nausea Last administered on 13:55; Admin Dose 4 MG; Start 07/24/16 at 17:00 Metoclopramide HCl (Reglan) 5 mg Q4H PRN IV NAUSEA Last administered on 16:40; Admin Dose 5 MG; Start 07/24/16 at 22:30 Diagnostic Test (Pha) (Accu-Chek) 1 ea 02 XX Last administered on 08/15/16 02: 25; Admin Dose 1 EA; Start 07/26/16 at 12:00 Clonidine HCl (Catapres-Tts 2 Patch) 1 patch Q7D TRANSDERM Last administered on 08/03/16 06:32; Admin Dose 1 PATCH; Start 07/27/16 at 07:00; Status Future Hold Pantoprazole (Protonix Tab) 40 mg DAILY@06 PO Last administered on 08/15/16 06 :12; Admin Dose 40 MG; Start 07/28/16 at 06:00 Hydralazine HCl (Apresoline) 20 mg Q4 PRN IV ELEVATED BLOOD PRESSURE Last administered on 08/04/16 16:35; Admin Dose 20 MG; Start 07/28/16 at 02:00 Doxazosin Mesylate (Cardura) 2 mg HS PO Last administered on 08/05/16 21:57; Admin Dose 2 MG; Start 07/28/16 at 21:00; Status Future Hold Polyethylene Glycol (Miralax) 17 gm DAILY PRN GTB CONSTIPATION Last administered on 07/28/16 20:22; Admin Dose 17 GM; Start 07/28/16 at 19:30 Lorazepam (Ativan) 1 mg Q4H PRN IV anxiety Last administered on 07/30/16 20:48 ; Admin Dose 1 MG; Start 07/29/16 at 06:30 Ethambutol HCl (Myambutol) 900 mg TuThSa@20 PO Last administered on 08/13/16 21:41; Admin Dose 900 MG; Start 07/31/16 at 20:00 Pyrazinamide (Pyrazinamide) 1,250 mg TuThSa@20 PO Last administered on 21:44; Admin Dose 1,250 MG; Start 07/31/16 at 20:00 Hydromorphone HCl (Dilaudid) 1 mg Q2H PRN IV pain Last administered on 13:21; Admin Dose 1 MG; Start 08/02/16 at 19:00 Hydralazine HCl (Apresoline) 25 mg Q8 PO Last administered on 08/06/16 05:44; Admin Dose 25 MG; Start 08/04/16 at 22:00; Status Future Hold Nifedipine (Procardia Xl) 30 mg BID PO ; Start 08/07/16 at 21:00; Status Future Hold Zolpidem Tartrate (Ambien) 5 mg HS PRN PO INSOMNIA Last administered on 22:40; Admin Dose 5 MG; Start 08/08/16 at 21:00 Benazepril HCl (Lotensin) 10 mg BID PO ; Start 08/09/16 at 09:00; Status Future Hold Metoprolol Tartrate 25 mg 25 mg BID GTB Last administered on 08/14/16 20:42; Admin Dose 25 MG; Start 08/09/16 at 21:00 Norepinephrine 16 mg/Dextrose 500 ml @ 1.87 mls/hr TITRATE IV Last administered on 08/15/16 02:22; Admin Dose 1.87 MLS/HR; Start 08/09/16 at 15:30 Caspofungin 50 mg/ Sodium Chloride 250 ml @ 250 mls/hr Q24H IVPB Last administered on 08/14/16 17:48; Admin Dose 250 MLS/HR; Start 08/10/16 at 17:00 Sodium Chloride 1,000 ml @ 50 mls/hr Q20H IV Last administered on 08/14/16 17 :48; Admin Dose 50 MLS/HR; Start 08/09/16 at 17:30; Status Future Hold Dopamine HCl/ Dextrose (D5W) 250 ml @ 1.71 mls/hr TITRATE IV Last administered on 08/11/16 15:07; Admin Dose 11.43 MLS/HR; Start 08/10/16 at 15:30 Acetaminophen (Tylenol Tab) 650 mg Q6H PRN PO PAIN AND OR ELEVATED TEMP Last administered on 08/12/16 00:54; Admin Dose 650 MG; Start 08/10/16 at 16:30 Clopidogrel Bisulfate 75 mg 75 mg DAILY PO Last administered on 08/15/16 08:21 ; Admin Dose 75 MG; Start 08/11/16 at 12:00 Phenylephrine HCl 160 mg/Dextrose 500 ml @ 18.75 mls/ hr TITRATE IV ; Start 03/20 at 06:00 Sodium Bicarbonate 50 meq/Dextrose/ Sodium Chloride 1,050 ml @ 140 mls/hr Q7H30M IV Last administered on 08/15/16 08:20; Admin Dose 140 MLS/HR; Start at 07:00 Meropenem (Merrem 500 Mg/ 100 ml (Pmx)) 100 ml @ 200 mls/hr Q24H IVPB Last administered on 08/15/16 08:21; Admin Dose 200 MLS/HR; Start 08/13/16 at 09:00 Epoetin Tutu (Epogen (Esrd)) 3,000 units TuThSa@17 SC ; Start 08/14/16 at 17:00 Epoetin Tutu (Epogen (Esrd)) 2,000 units TuThSa@17 SC ; Start 08/14/16 at 17:00 Triglycerides (Mct Oil (Ped)) 10 ml Q6 PO Last administered on 08/15/16 12:42 ; Admin Dose 10 ML; Start 08/14/16 at 12:30 Levofloxacin 750 mg 750 mg TuThSa PO Last administered on 08/14/16 20:42; Admin Dose 750 MG; Start 08/14/16 at 20:00 Calcium Gluconate/ Sodium Chloride (Ca Gluc/NS) 110 ml @ 110 mls/hr Q12H IVPB Last administered on 08/15/16 07:36; Admin Dose 110 MLS/HR; Start 08/15/16 at 06:00; Stop 08/15/16 at 18:59 Calcium Carbonate (Tums) 500 mg TID PO Last administered on 08/15/16 13:20; Admin Dose 500 MG; Start 08/15/16 at 09:00 Insulin Glargine (Lantus) 15 unit DAILY SC ; Start 08/16/16 at 09:00 Midodrine (Proamatine) 5 mg BID@,17 PO ; Start 08/15/16 at 17:00 PAOLA MOODY MD Aug 15, 2016 14:57
[2016-08-15] MEDS: CASPOFUNGIN 50 MG in SOD CHLORIDE 0.9% 250 ML IVPB SCH (17:28)
[2016-08-15] MEDS: MIDODRINE 5 MG TAB PO SCH (17:28)
[2016-08-15] MEDS ORDERED: HEPARIN 1000 UNITS/ML 10 ML INJ ONE (20:35)
[2016-08-15 20:49] LABS: CRYPTOCOCCAL ANTIGEN - SOURCE Serum
--- NOTE | 2016-08-15 21:33 | OPR ---
DATE OF OPERATION: PREOPERATIVE DIAGNOSIS: Renal failure. POSTOPERATIVE DIAGNOSIS: Renal failure. OPERATION PERFORMED: Right femoral hemodialysis catheter placement. SURGEON: Lilia Martinez MD ANESTHESIA: Local. CONSENT: Risks, benefits, complications, alternative therapies explained to the patient and the [facility] demario, consent obtained. OPERATIVE TECHNIQUE: The patient was placed in supine position, prepped and draped in usual sterile fashion, 1% lidocaine was used throughout the operation for local anesthesia. Access was gained in the right common femoral vein. Guidewire was advanced through without any difficulty. Subcutaneou s tissues dilated. A 20 cm dialysis catheter advanced over guidewire, secured to the skin using ed k sutures. Both ports of the catheter were aspirated and injected using heparinized saline solution . The patient tolerated procedure well. Dictated By: LILIA MARTINEZ MD FM/NTS Conf#: [id number] DID#: [id number] CC: EVA COX MD; LILIA MARTINEZ MD; CLAUDIO MUNIZ MD;*End*
[2016-08-15] MEDS: ATORVASTATIN 10 MG TAB PO SCH (21:40)
[2016-08-16] VITALS (96 sets, daily range): BP systolic 37–182; BP diastolic 15–140; PULSE 48–207; RESP 8–33
[2016-08-16] MEDS: SODIUM BICARBONATE (IV ADD) 50 MEQ in DEXTROSE 5%-0.45% NACL 1,000 ML IV SCH ×3 (00:40→14:35)
[2016-08-16] MEDS: MED CHAIN TRIGLYCERIDES (PO SYG) PO SCH ×4 (00:41→18:00)
[2016-08-16] MEDS: ACCUCHECK 2 AM XX SCH (01:56)
[2016-08-16] MEDS: HYDROmorphONE 1 MG/ML SYG IV PRN ×3 (02:48→13:56)
[2016-08-16] MEDS ORDERED: ALBUMIN HUMAN 25% 50 ML IV PRN (04:00)
[2016-08-16] MEDS: PANTOPRAZOLE (EC) 40 MG TAB PO SCH (06:05)
[2016-08-16 06:29] LABS: ADD SCAN DIFF NO
[2016-08-16 06:49] LABS: ALBUMIN 1.5 g/dl (3.3-4.9)
[2016-08-16 06:51] LABS: BASOPHILS % 0.1 % (0.0-2.0); EOSINOPHILS # 0.1 10^3/ul (0.0-0.5); EOSINOPHILS % 0.5 % (0.0-7.0); HEMATOCRIT 27.5 % (42.0-52.0); HEMOGLOBIN 9.4 g/dl (14.0-18.0); LYMPHOCYTES # 0.6 10^3/ul (0.8-2.9); LYMPHOCYTES % 3.4 % (15.0-51.0); MEAN CORPUSCULAR HEMOGLOBIN 32.3 pg (29.0-33.0); MEAN CORPUSCULAR HGB CONC 34.2 g/dl (32.0-37.0); MEAN CORPUSCULAR VOLUME 94.5 fl (82.0-101.0); MEAN PLATELET VOLUME 11.6 fl (7.4-10.4); MONOCYTES % 5.4 % (0.0-11.0); NEUTROPHIL # 15.9 10^3/ul (1.6-7.5); NEUTROPHILS % 89.7 % (39.0-77.0); PLATELET COUNT 101 10^3/UL (140-415); RED BLOOD COUNT 2.91 10^6/ul (4.70-6.10); RED CELL DISTRIBUTION WIDTH 17.4 % (11.5-14.5); WHITE BLOOD COUNT 17.8 10^3/ul (4.8-10.8)
[2016-08-16 06:52] LABS: ALBUMIN/GLOBULIN RATIO 0.83; BILIRUBIN,DIRECT 0.5 mg/dl (0.00-0.20); BILIRUBIN,INDIRECT 0.8 mg/dl (0-1.1); BILIRUBIN,TOTAL 1.3 mg/dl (0.2-1.3); CREATININE 2.89 mg/dl (0.61-1.24); TOTAL PROTEIN 3.3 g/dl (6.1-8.1)
[2016-08-16 06:53] LABS: CALCIUM 7.4 mg/dl (8.4-10.2)
[2016-08-16] MEDS ORDERED: ETOMIDATE 20 MG INJ ONE (07:00)
[2016-08-16] MEDS ORDERED: ROCURONIUM 50 MG INJ ONE (07:00)
[2016-08-16 07:01] LABS: POTASSIUM 2.9 mmol/L (3.5-5.1)
[2016-08-16] MEDS: PHENYLephrine 160 MG in DEXTROSE 5% 484 ML IV SCH ×3 (07:21→17:19)
[2016-08-16] MEDS ORDERED: POTASSIUM CHLORIDE 250 ML IVPB ONE (07:30)
[2016-08-16] MEDS: INSULIN ASPART [NOVOLOG] 3 ML PEN SC SCH ×7 (07:59→20:42)
--- NOTE | 2016-08-16 08:00 | CONS ---
Date/Time of Note Date/Time of Note DATE: 08/16/16 TIME: 07:58 Assessment/Plan Assessment/Plan Additional Assessment/Plan Assessment recommendations; 1. Patient admitted for recurrent right pleural effusion status post VATS procedure however still having copious discharge through the chest tube. 2. Highly questionable diagnosis of pulmonary tuberculosis and TB empyema. 3. Cardiomyopathy. 4. End-stage renal hemodialysis. 4. Diabetes hypertension. 5. History of coronary artery disease. Continue current treatment. Patient will need to have a Pleurx catheter placed. Consider stopping anti-tuberculosis medications. Consultation Date/Type/Reason Admit Date/Time Jul 24, 2016 at 12:53 Initial Consult Date 07/25/16 Type of Consultation: Pulmonary/critical care Referring Provider: EVA COX MD 24 HR Interval Summary Free Text/Dictation Patient condition remains tenuous at best. Not requiring high-dose pressor support with Levophed drip. Patient however remains completely awake alert denies any shortness of breath, chest pain. She is having copious drainage through the right side chest tube. General exam; elderly male, awake alert currently in no distress. Exam/Review of Systems Vital Signs Vitals Vital Signs Date Time Temp Pulse Resp B/P Pulse Ox O2 Delivery O2 Flow Rate FiO2 08/16/16 07:00 134 16 77/57 08/16/16 06:15 100 08/16/16 06:00 Room Air 08/16/16 04:00 97.8 08/15/16 18:00 21 08/12/16 07:45 2.0 Intake and Output 08/15/16 08/15/16 08/16/16 15:00 23:00 07:00 Intake Total 1632.47 ml 1577.48 ml 1539.98 ml Output Total 550 ml 50 ml 1850 ml Balance 1082.47 ml 1527.48 ml -310.02 ml Exam HEENT exam is; supple neck, no JVD. No lymphadenopathy. Midline trachea. No thyromegaly. Pupils are midsize reactive to light. Chest exam; diminished breath sounds right lower lobe. Right side chest tube in place. Left lung is clear to auscultation. S1-S2 audible, no murmurs. Regular rhythm. There is a well-healed sternal scar. Abdomen examination; soft, nondistended. No organomegaly. Bowel sounds audible. Extremity exam; no peripheral edema. [employer] examination; no focal deficit. Results Result Diagram: 08/16/16 0600 08/16/16 0600 Results 24 hrs Laboratory Tests Test 08/15/16 11:49 08/15/16 17:30 08/15/16 20:00 08/15/16 21:39 Bedside Glucose 98 71 134 Calcium Level 6.2 L Ionized Calcium (Measured) 0.9 L Test 08/16/16 00:40 08/16/16 01:33 08/16/16 06:00 Bedside Glucose 193 186 White Blood Count 17.8 #H Red Blood Count 2.91 L Hemoglobin 9.4 L Hematocrit 27.5 L Mean Corpuscular Volume 94.5 Mean Corpuscular Hemoglobin 32.3 Mean Corpuscular Hemoglobin Concent 34.2 Red Cell Distribution Width 17.4 H Platelet Count 101 #L Mean Platelet Volume 11.6 H Neutrophils % 89.7 H Lymphocytes % 3.4 L Monocytes % 5.4 Eosinophils % 0.5 Basophils % 0.1 Nucleated Red Blood Cells % 0.0 Neutrophils # 15.9 H Lymphocytes # 0.6 L Monocytes # 1.0 H Eosinophils # 0.1 Basophils # 0.0 Nucleated Red Blood Cells # 0.0 Sodium Level 138 Potassium Level 2.9 *L Chloride Level 105 Carbon Dioxide Level 27 Anion Gap 9 Blood Urea Nitrogen 31 #H Creatinine 2.89 #H Glucose Level 250 H Calcium Level 7.4 L Total Bilirubin 1.3 Direct Bilirubin 0.50 #H Indirect Bilirubin 0.8 Aspartate Amino Transf (AST/SGOT) 54 H Alanine Aminotransferase (ALT/SGPT) 27 Alkaline Phosphatase 156 H Total Protein 3.3 L Albumin 1.5 L Globulin 1.80 Albumin/Globulin Ratio 0.83 Medications Medications Current Medications Aspirin (Halfprin) 81 mg DAILY PO Last administered on 08/15/16 08:21; Admin Dose 81 MG; Start 07/25/16 at 09:00; Status Future hold Atorvastatin Calcium (Lipitor) 10 mg QHS PO Last administered on 08/15/16 21: 40; Admin Dose 10 MG; Start 07/24/16 at 21:00 Cholecalciferol (Vitamin D) 400 units DAILY PO Last administered on 08/15/16 08:21; Admin Dose 400 UNITS; Start 07/25/16 at 09:00 Famotidine (Pepcid) 20 mg DAILY PO Last administered on 08/15/16 08:21; Admin Dose 20 MG; Start 07/25/16 at 09:00 Ferrous Sulfate (Ferrous Sulfate (Ec)) 325 mg BID PO Last administered on 21:40; Admin Dose 325 MG; Start 07/24/16 at 21:00 Acetaminophen/ Hydrocodone Bitart ([place] (5/325)) 1 tab Q4H PRN PO PAIN Last administered on 08/14/16 14:11; Admin Dose 1 TAB; Start 07/24/16 at 17:00 Isoniazid (Isoniazid) 300 mg DAILY PO Last administered on 08/15/16 08:21; Admin Dose 300 MG; Start 07/24/16 at 15:30 Pyridoxine HCl (Vitamin B6) 50 mg DAILY PO Last administered on 08/15/16 08:21 ; Admin Dose 50 MG; Start 07/25/16 at 09:00 Miscellaneous Information 1 ea NOTE XX ; Start 07/24/16 at 16:00 Glucose (Glutose) 15 gm Q15M PRN PO DECREASED GLUCOSE; Start 07/24/16 at 16:00 Glucose (Glutose) 22.5 gm Q15M PRN PO DECREASED GLUCOSE; Start 07/24/16 at 16: 00 Dextrose (D50w Syringe) 25 ml Q15M PRN IV DECREASED GLUCOSE; Start 07/24/16 at 16:00 Dextrose (D50w Syringe) 50 ml Q15M PRN IV DECREASED GLUCOSE; Start 07/24/16 at 16:00 Glucagon (Glucagen) 1 mg Q15M PRN IM DECREASED GLUCOSE; Start 07/24/16 at 16:00 Glucose (Glutose) 15 gm Q15M PRN BUCCAL DECREASED GLUCOSE; Start 07/24/16 at 16 :00 Ondansetron HCl (Zofran Inj) 4 mg Q4 PRN IV nausea Last administered on 21:40; Admin Dose 4 MG; Start 07/24/16 at 17:00 Metoclopramide HCl (Reglan) 5 mg Q4H PRN IV NAUSEA Last administered on 16:40; Admin Dose 5 MG; Start 07/24/16 at 22:30 Diagnostic Test (Pha) (Accu-Chek) 1 ea 02 XX Last administered on 08/16/16 01: 56; Admin Dose 1 EA; Start 07/26/16 at 12:00 Pantoprazole (Protonix Tab) 40 mg DAILY@06 PO Last administered on 08/16/16 06 :05; Admin Dose 40 MG; Start 07/28/16 at 06:00 Hydralazine HCl (Apresoline) 20 mg Q4 PRN IV ELEVATED BLOOD PRESSURE Last administered on 08/04/16 16:35; Admin Dose 20 MG; Start 07/28/16 at 02:00 Polyethylene Glycol (Miralax) 17 gm DAILY PRN GTB CONSTIPATION Last administered on 07/28/16 20:22; Admin Dose 17 GM; Start 07/28/16 at 19:30 Lorazepam (Ativan) 1 mg Q4H PRN IV anxiety Last administered on 07/30/16 20:48 ; Admin Dose 1 MG; Start 07/29/16 at 06:30 Ethambutol HCl (Myambutol) 900 mg TuThSa@20 PO Last administered on 08/13/16 21:41; Admin Dose 900 MG; Start 07/31/16 at 20:00 Pyrazinamide (Pyrazinamide) 1,250 mg TuThSa@20 PO Last administered on 21:44; Admin Dose 1,250 MG; Start 07/31/16 at 20:00 Hydromorphone HCl (Dilaudid) 1 mg Q2H PRN IV pain Last administered on 02:48; Admin Dose 1 MG; Start 08/02/16 at 19:00 Zolpidem Tartrate (Ambien) 5 mg HS PRN PO INSOMNIA Last administered on 22:40; Admin Dose 5 MG; Start 08/08/16 at 21:00 Benazepril HCl (Lotensin) 10 mg BID PO ; Start 08/09/16 at 09:00; Status Future Hold Metoprolol Tartrate 25 mg 25 mg BID GTB Last administered on 08/14/16 20:42; Admin Dose 25 MG; Start 08/09/16 at 21:00 Norepinephrine 16 mg/Dextrose 500 ml @ 1.87 mls/hr TITRATE IV Last administered on 08/16/16 07:22; Admin Dose 56.25 MLS/HR; Start 08/09/16 at 15:30 Caspofungin 50 mg/ Sodium Chloride 250 ml @ 250 mls/hr Q24H IVPB Last administered on 08/15/16 17:28; Admin Dose 250 MLS/HR; Start 08/10/16 at 17:00 Sodium Chloride 1,000 ml @ 50 mls/hr Q20H IV Last administered on 08/14/16 17 :48; Admin Dose 50 MLS/HR; Start 08/09/16 at 17:30; Status Future Hold Dopamine HCl/ Dextrose (D5W) 250 ml @ 1.71 mls/hr TITRATE IV Last administered on 08/11/16 15:07; Admin Dose 11.43 MLS/HR; Start 08/10/16 at 15:30 Acetaminophen (Tylenol Tab) 650 mg Q6H PRN PO PAIN AND OR ELEVATED TEMP Last administered on 08/12/16 00:54; Admin Dose 650 MG; Start 08/10/16 at 16:30 Clopidogrel Bisulfate 75 mg 75 mg DAILY PO Last administered on 08/15/16 08:21 ; Admin Dose 75 MG; Start 08/11/16 at 12:00 Phenylephrine HCl 160 mg/Dextrose 500 ml @ 18.75 mls/ hr TITRATE IV Last administered on 08/16/16 07:21; Admin Dose 18.75 MLS/HR; Start 08/12/16 at 06: 00 Sodium Bicarbonate 50 meq/Dextrose/ Sodium Chloride 1,050 ml @ 140 mls/hr Q7H30M IV Last administered on 08/16/16 00:40; Admin Dose 140 MLS/HR; Start at 07:00 Meropenem (Merrem 500 Mg/ 100 ml (Pmx)) 100 ml @ 200 mls/hr Q24H IVPB Last administered on 08/15/16 08:21; Admin Dose 200 MLS/HR; Start 08/13/16 at 09:00 Epoetin Tutu (Epogen (Esrd)) 3,000 units TuThSa@17 SC ; Start 08/14/16 at 17:00 Epoetin Tutu (Epogen (Esrd)) 2,000 units TuThSa@17 SC ; Start 08/14/16 at 17:00 Triglycerides (Mct Oil (Ped)) 10 ml Q6 PO Last administered on 08/16/16 06:05 ; Admin Dose 10 ML; Start 08/14/16 at 12:30 Levofloxacin (Levaquin) 750 mg TuThSa PO Last administered on 08/14/16 20:42; Admin Dose 750 MG; Start 08/14/16 at 20:00 Calcium Carbonate (Tums) 500 mg TID PO Last administered on 08/15/16 21:40; Admin Dose 500 MG; Start 08/15/16 at 09:00 Insulin Glargine (Lantus) 15 unit DAILY SC ; Start 08/16/16 at 09:00 Midodrine 5 mg 5 mg BID@09,17 PO Last administered on 08/15/16 17:28; Admin Dose 5 MG; Start 08/15/16 at 17:00 Potassium Chloride (KCl 40 MEQ/250 ML NS) 250 ml @ 62.5 mls/hr ONCE ONCE IVPB ; Start 08/16/16 at 07:30; Stop 08/16/16 at 11:29 BOONE POLO Aug 16, 2016 08:00
[2016-08-16] MEDS: MEROPENEM 500 MG/100 ML (PMX) 100 ML IVPB SCH (08:20)
[2016-08-16] MEDS: PYRIDOXINE 50 MG TAB PO SCH (08:21)
[2016-08-16] MEDS: ISONIAZID 300 MG TAB PO SCH (08:21)
[2016-08-16] MEDS: ASPIRIN (EC) 81 MG TAB PO SCH (08:21)
[2016-08-16] MEDS: FERROUS SULFATE (EC) 325 MG TAB PO SCH ×2 (08:21→21:00)
[2016-08-16] MEDS: CLOPIDOGREL 75 MG TAB PO SCH (08:21)
[2016-08-16] MEDS: FAMOTIDINE 20 MG TAB PO SCH (08:21)
[2016-08-16] MEDS: CHOLECALCIFEROL 400 UNITS TAB PO SCH (08:21)
[2016-08-16] MEDS: CALCIUM CARBONATE 500 MG CHEW TAB PO SCH ×3 (08:21→21:00)
[2016-08-16] MEDS: METOPROLOL 25 MG TAB GTB SCH ×2 (09:00→21:00)
[2016-08-16] MEDS: VASOPRESSIN 60 UNIT in DEXTROSE 5% 57 ML IV SCH ×2 (09:34→23:49)
[2016-08-16] MEDS: MIDODRINE 5 MG TAB PO SCH ×2 (09:39→17:00)
[2016-08-16] MEDS: INSULIN GLARGINE [LANtus] 3 ML PEN SC SCH (09:40)
[2016-08-16] MEDS ORDERED: POTASSIUM CHLORIDE (SR) 20 MEQ TAB PO STA (10:46)
--- NOTE | 2016-08-16 10:49 | PN ---
Date/Time of Note Date/Time of Note DATE: 08/16/16 TIME: 10:47 Assessment/Plan VTE Prophylaxis VTE Prophylaxis Intervention: other Lines/Catheters IV C[facility]ter Type [facility]from [facility] Lukasz Urinary Cath still in place: No Assessment/Plan Chief Complaint/Hosp Course - Recurrent right pleural effusion consistent with empyema, cavitary lesions, status post right thoracotomy and pulmonary decortication on 08/04. - Hemoptysis, resolved. Dr. Dale is following in pulmonology consultation. Dr. Caitlin balderas is following an infection disease consultation. - Right former chest tube site bleeding, resolved. Dr. Martinez is following in thoracic surgery consultation. - Anemia of acute blood loss, patient had bleeding from the right femoral catheter as well as chest tube site on admission, status post blood transfusion , continue to monitor hemoglobin and hematocrit. Dr. Martinez is following in hematology consultation. 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 - End-stage renal disease, continue hemodialysis. Dr. Saunders is following in nephrology consultation. - Diabetes mellitus type II -Glycemic control - Hypotension. - per Dr. De Santiago in cardiology consultation. - cardaic drugs optimized by Dr De Santiago - restarted on Levophed - NS BOLUS 250 ccx1 - albumin IV - Coronary artery disease, status post coronary artery bypass graft, s/p percutaneous transluminal coronary angioplasty and stent placement to left main and left anterior descending in 2014. - Permanent pacemaker. No acute issues. - Dyslipidemia. Continue Lipitor. - Hyponatremia-per manager rail. - Malnutrition- dw dr Saunders.started on TPN today. Problems: Subjective 24 Hr Interval Summary Free Text/Dictation Patient awake, feels tired, in trendelenburg. Exam/Review of Systems Vital Signs Vitals Vital Signs Date Time Temp Pulse Resp B/P Pulse Ox O2 Delivery O2 Flow Rate FiO2 08/16/16 10:15 133 21 88/53 100 08/16/16 09:00 Nasal Cannula 2.0 08/16/16 08:00 97.6 08/15/16 18:00 21 Intake and Output 08/15/16 08/15/16 08/16/16 15:00 23:00 07:00 Intake Total 1632.47 ml 1577.48 ml 1539.98 ml Output Total 550 ml 50 ml 1850 ml Balance 1082.47 ml 1527.48 ml -310.02 ml Exam Constitutional: well developed Head: atraumatic, normocephalic Neck: supple Respiratory: diminished breath sounds Cardiovascular: regular rate and rhythm Gastrointestinal: non-tender, soft Extremities: normal pulses Results Result Diagram: 08/16/16 0600 08/16/16 0600 Results 24 hrs Laboratory Tests Test 08/15/16 11:49 08/15/16 17:30 08/15/16 20:00 08/15/16 21:39 Bedside Glucose 98 71 134 Calcium Level 6.2 L Ionized Calcium (Measured) 0.9 L Test 08/16/16 00:40 08/16/16 01:33 08/16/16 06:00 08/16/16 07:57 Bedside Glucose 193 186 250 H White Blood Count 17.8 #H Red Blood Count 2.91 L Hemoglobin 9.4 L Hematocrit 27.5 L Mean Corpuscular Volume 94.5 Mean Corpuscular Hemoglobin 32.3 Mean Corpuscular Hemoglobin Concent 34.2 Red Cell Distribution Width 17.4 H Platelet Count 101 #L Mean Platelet Volume 11.6 H Neutrophils % 89.7 H Lymphocytes % 3.4 L Monocytes % 5.4 Eosinophils % 0.5 Basophils % 0.1 Nucleated Red Blood Cells % 0.0 Neutrophils # 15.9 H Lymphocytes # 0.6 L Monocytes # 1.0 H Eosinophils # 0.1 Basophils # 0.0 Nucleated Red Blood Cells # 0.0 Sodium Level 138 Potassium Level 2.9 *L Chloride Level 105 Carbon Dioxide Level 27 Anion Gap 9 Blood Urea Nitrogen 31 #H Creatinine 2.89 #H Glucose Level 250 H Calcium Level 7.4 L Total Bilirubin 1.3 Direct Bilirubin 0.50 #H Indirect Bilirubin 0.8 Aspartate Amino Transf (AST/SGOT) 54 H Alanine Aminotransferase (ALT/SGPT) 27 Alkaline Phosphatase 156 H Total Protein 3.3 L Albumin 1.5 L Globulin 1.80 Albumin/Globulin Ratio 0.83 Medications Medications Current Medications Aspirin (Halfprin) 81 mg DAILY PO Last administered on 08/16/16 08:21; Admin Dose 81 MG; Start 07/25/16 at 09:00; Status Future hold Atorvastatin Calcium (Lipitor) 10 mg QHS PO Last administered on 08/15/16 21: 40; Admin Dose 10 MG; Start 07/24/16 at 21:00 Cholecalciferol (Vitamin D) 400 units DAILY PO Last administered on 08/16/16 08:21; Admin Dose 400 UNITS; Start 07/25/16 at 09:00 Famotidine (Pepcid) 20 mg DAILY PO Last administered on 08/16/16 08:21; Admin Dose 20 MG; Start 07/25/16 at 09:00 Ferrous Sulfate (Ferrous Sulfate (Ec)) 325 mg BID PO Last administered on 08:21; Admin Dose 325 MG; Start 07/24/16 at 21:00 Acetaminophen/ Hydrocodone Bitart ([place] (5/325)) 1 tab Q4H PRN PO PAIN Last administered on 08/14/16 14:11; Admin Dose 1 TAB; Start 07/24/16 at 17:00 Isoniazid (Isoniazid) 300 mg DAILY PO Last administered on 08/16/16 08:21; Admin Dose 300 MG; Start 07/24/16 at 15:30 Pyridoxine HCl (Vitamin B6) 50 mg DAILY PO Last administered on 08/16/16 08:21 ; Admin Dose 50 MG; Start 07/25/16 at 09:00 Miscellaneous Information 1 ea NOTE XX ; Start 07/24/16 at 16:00 Glucose (Glutose) 15 gm Q15M PRN PO DECREASED GLUCOSE; Start 07/24/16 at 16:00 Glucose (Glutose) 22.5 gm Q15M PRN PO DECREASED GLUCOSE; Start 07/24/16 at 16: 00 Dextrose (D50w Syringe) 25 ml Q15M PRN IV DECREASED GLUCOSE; Start 07/24/16 at 16:00 Dextrose (D50w Syringe) 50 ml Q15M PRN IV DECREASED GLUCOSE; Start 07/24/16 at 16:00 Glucagon (Glucagen) 1 mg Q15M PRN IM DECREASED GLUCOSE; Start 07/24/16 at 16:00 Glucose (Glutose) 15 gm Q15M PRN BUCCAL DECREASED GLUCOSE; Start 07/24/16 at 16 :00 Ondansetron HCl (Zofran Inj) 4 mg Q4 PRN IV nausea Last administered on 21:40; Admin Dose 4 MG; Start 07/24/16 at 17:00 Metoclopramide HCl (Reglan) 5 mg Q4H PRN IV NAUSEA Last administered on 16:40; Admin Dose 5 MG; Start 07/24/16 at 22:30 Diagnostic Test (Pha) (Accu-Chek) 1 ea 02 XX Last administered on 08/16/16 01: 56; Admin Dose 1 EA; Start 07/26/16 at 12:00 Pantoprazole (Protonix Tab) 40 mg DAILY@06 PO Last administered on 08/16/16 06 :05; Admin Dose 40 MG; Start 07/28/16 at 06:00 Hydralazine HCl (Apresoline) 20 mg Q4 PRN IV ELEVATED BLOOD PRESSURE Last administered on 08/04/16 16:35; Admin Dose 20 MG; Start 07/28/16 at 02:00 Polyethylene Glycol (Miralax) 17 gm DAILY PRN GTB CONSTIPATION Last administered on 07/28/16 20:22; Admin Dose 17 GM; Start 07/28/16 at 19:30 Lorazepam (Ativan) 1 mg Q4H PRN IV anxiety Last administered on 07/30/16 20:48 ; Admin Dose 1 MG; Start 07/29/16 at 06:30 Ethambutol HCl (Myambutol) 900 mg TuThSa@20 PO Last administered on 08/13/16 21:41; Admin Dose 900 MG; Start 07/31/16 at 20:00 Pyrazinamide (Pyrazinamide) 1,250 mg TuThSa@20 PO Last administered on 21:44; Admin Dose 1,250 MG; Start 07/31/16 at 20:00 Hydromorphone HCl (Dilaudid) 1 mg Q2H PRN IV pain Last administered on 08:22; Admin Dose 1 MG; Start 08/02/16 at 19:00 Zolpidem Tartrate (Ambien) 5 mg HS PRN PO INSOMNIA Last administered on 22:40; Admin Dose 5 MG; Start 08/08/16 at 21:00 Benazepril HCl (Lotensin) 10 mg BID PO ; Start 08/09/16 at 09:00; Status Future Hold Metoprolol Tartrate 25 mg 25 mg BID GTB Last administered on 08/14/16 20:42; Admin Dose 25 MG; Start 08/09/16 at 21:00 Norepinephrine 16 mg/Dextrose 500 ml @ 1.87 mls/hr TITRATE IV Last administered on 08/16/16 07:22; Admin Dose 56.25 MLS/HR; Start 08/09/16 at 15:30 Caspofungin 50 mg/ Sodium Chloride 250 ml @ 250 mls/hr Q24H IVPB Last administered on 08/15/16 17:28; Admin Dose 250 MLS/HR; Start 08/10/16 at 17:00 Sodium Chloride 1,000 ml @ 50 mls/hr Q20H IV Last administered on 08/14/16 17 :48; Admin Dose 50 MLS/HR; Start 08/09/16 at 17:30; Status Future Hold Dopamine HCl/ Dextrose (D5W) 250 ml @ 1.71 mls/hr TITRATE IV Last administered on 08/11/16 15:07; Admin Dose 11.43 MLS/HR; Start 08/10/16 at 15:30 Acetaminophen (Tylenol Tab) 650 mg Q6H PRN PO PAIN AND OR ELEVATED TEMP Last administered on 08/12/16 00:54; Admin Dose 650 MG; Start 08/10/16 at 16:30 Clopidogrel Bisulfate 75 mg 75 mg DAILY PO Last administered on 08/16/16 08:21 ; Admin Dose 75 MG; Start 08/11/16 at 12:00 Phenylephrine HCl 160 mg/Dextrose 500 ml @ 18.75 mls/ hr TITRATE IV Last administered on 08/16/16 10:40; Admin Dose 56.25 MLS/HR; Start 08/12/16 at 06: 00 Sodium Bicarbonate 50 meq/Dextrose/ Sodium Chloride 1,050 ml @ 140 mls/hr Q7H30M IV Last administered on 08/16/16 08:10; Admin Dose 140 MLS/HR; Start at 07:00 Meropenem (Merrem 500 Mg/ 100 ml (Pmx)) 100 ml @ 200 mls/hr Q24H IVPB Last administered on 08/16/16 08:20; Admin Dose 200 MLS/HR; Start 08/13/16 at 09:00 Epoetin Tutu (Epogen (Esrd)) 3,000 units TuThSa@17 SC ; Start 08/14/16 at 17:00 Epoetin Tutu (Epogen (Esrd)) 2,000 units TuThSa@17 SC ; Start 08/14/16 at 17:00 Triglycerides (Mct Oil (Ped)) 10 ml Q6 PO Last administered on 08/16/16 06:05 ; Admin Dose 10 ML; Start 08/14/16 at 12:30 Levofloxacin (Levaquin) 750 mg TuThSa PO Last administered on 08/14/16 20:42; Admin Dose 750 MG; Start 08/14/16 at 20:00 Calcium Carbonate (Tums) 500 mg TID PO Last administered on 08/16/16 08:21; Admin Dose 500 MG; Start 08/15/16 at 09:00 Insulin Glargine (Lantus) 15 unit DAILY SC Last administered on 08/16/16 09:40 ; Admin Dose 15 UNIT; Start 08/16/16 at 09:00 Midodrine 5 mg 5 mg BID@,17 PO Last administered on 08/16/16 09:39; Admin Dose 5 MG; Start 08/15/16 at 17:00 Potassium Chloride 250 ml @ 62.5 mls/hr ONCE ONCE IVPB Last administered on 08:04; Admin Dose 62.5 MLS/HR; Start 08/16/16 at 07:30; Stop 08/16/16 at 11:29 Vasopressin/ Dextrose (Vasostrict/D5W) 60 ml @ 1.2 mls/hr Q12H IV Last administered on 08/16/16 09:34; Admin Dose 1.2 MLS/HR; Start 08/16/16 at 09:30 HELEN SHARP Aug 16, 2016 10:49
[2016-08-16] MEDS ORDERED: EPINEPHRINE IVPB SCH (13:00)
[2016-08-16] MEDS ORDERED: PHENYLephrine 160 MG in DEXTROSE 5% 484 ML IV SCH (13:00)
[2016-08-16] MEDS ORDERED: DEXTROSE 5% IVPB SCH (13:00)
--- NOTE | 2016-08-16 13:19 | CONS ---
Date/Time of Note Date/Time of Note DATE: 08/16/16 TIME: 13:10 Assessment/Plan Assessment/Plan Additional Assessment/Plan CAD with PTCA and stent placement to left main and left anterior descending in 2014. History of coronary artery bypass graft surgery. End-stage renal disease on hemodialysis. Tuberculosis, on therapy. Hypertension Diabetes mellitus. Dyslipidemia. Empyema/cavitary lesions S/P VATS and Pleurodesis Clinically unstable requiring [address] still draining Administer 25% albumin 50cc if MAP < 60mmHg Continue Phenyl and Norepinephrine Continue HD as scheduled Continue anti TB regimen as scheduled Continue Insulin Continue Lipitor Consultation Date/Type/Reason Admit Date/Time Jul 24, 2016 at 12:53 Constitutional: other (malfunctioning hd cath) Eyes: no complaints ENT: no complaints Respiratory: other, shortness of breath (getting better ) Cardiovascular: no complaints Gastrointestinal: no complaints Genitourinary: no complaints Musculoskeletal: no complaints Skin: no complaints Neurologic: no complaints Endocrine: no complaints Lymphatic: no complaints Psychological: no complaints Immunologic: no complaints Past Surgical History Past Surgical Hx: no surgical history, angioplasty, other Social History Alcohol Use: none Smoking Status: Former smoker Drug Use: other Exam/Review of Systems Vital Signs Vitals Vital Signs Date Time Temp Pulse Resp B/P Pulse Ox O2 Delivery O2 Flow Rate FiO2 08/16/16 10:45 128 32 77/62 100 08/16/16 09:00 Nasal Cannula 2.0 08/16/16 08:00 97.6 08/15/16 18:00 21 Intake and Output 08/15/16 08/15/16 08/16/16 15:00 23:00 07:00 Intake Total 1632.47 ml 1577.48 ml 1539.98 ml Output Total 550 ml 50 ml 1850 ml Balance 1082.47 ml 1527.48 ml -310.02 ml Exam Constitutional: alert, oriented Head: atraumatic, normocephalic Neck: non-tender, supple Respiratory: diminished breath sounds (tacycardiac) Gastrointestinal: nl liver, spleen, non-tender, soft Extremities: normal pulses Results Result Diagram: 08/16/16 0600 08/16/16 0600 Results 24 hrs Laboratory Tests Test 08/15/16 17:30 08/15/16 20:00 08/15/16 21:39 08/16/16 00:40 Bedside Glucose 71 134 193 Calcium Level 6.2 L Ionized Calcium (Measured) 0.9 L Test 08/16/16 01:33 08/16/16 06:00 08/16/16 07:57 08/16/16 11:39 Bedside Glucose 186 250 H 329 H White Blood Count 17.8 #H Red Blood Count 2.91 L Hemoglobin 9.4 L Hematocrit 27.5 L Mean Corpuscular Volume 94.5 Mean Corpuscular Hemoglobin 32.3 Mean Corpuscular Hemoglobin Concent 34.2 Red Cell Distribution Width 17.4 H Platelet Count 101 #L Mean Platelet Volume 11.6 H Neutrophils % 89.7 H Lymphocytes % 3.4 L Monocytes % 5.4 Eosinophils % 0.5 Basophils % 0.1 Nucleated Red Blood Cells % 0.0 Neutrophils # 15.9 H Lymphocytes # 0.6 L Monocytes # 1.0 H Eosinophils # 0.1 Basophils # 0.0 Nucleated Red Blood Cells # 0.0 Sodium Level 138 Potassium Level 2.9 *L Chloride Level 105 Carbon Dioxide Level 27 Anion Gap 9 Blood Urea Nitrogen 31 #H Creatinine 2.89 #H Glucose Level 250 H Calcium Level 7.4 L Total Bilirubin 1.3 Direct Bilirubin 0.50 #H Indirect Bilirubin 0.8 Aspartate Amino Transf (AST/SGOT) 54 H Alanine Aminotransferase (ALT/SGPT) 27 Alkaline Phosphatase 156 H Total Protein 3.3 L Albumin 1.5 L Globulin 1.80 Albumin/Globulin Ratio 0.83 Medications Medications Current Medications Aspirin (Halfprin) 81 mg DAILY PO Last administered on 08/16/16 08:21; Admin Dose 81 MG; Start 07/25/16 at 09:00; Status Future hold Atorvastatin Calcium (Lipitor) 10 mg QHS PO Last administered on 08/15/16 21: 40; Admin Dose 10 MG; Start 07/24/16 at 21:00 Cholecalciferol (Vitamin D) 400 units DAILY PO Last administered on 08/16/16 08:21; Admin Dose 400 UNITS; Start 07/25/16 at 09:00 Famotidine (Pepcid) 20 mg DAILY PO Last administered on 08/16/16 08:21; Admin Dose 20 MG; Start 07/25/16 at 09:00 Ferrous Sulfate (Ferrous Sulfate (Ec)) 325 mg BID PO Last administered on 08:21; Admin Dose 325 MG; Start 07/24/16 at 21:00 Acetaminophen/ Hydrocodone Bitart ([place] (5/325)) 1 tab Q4H PRN PO PAIN Last administered on 08/14/16 14:11; Admin Dose 1 TAB; Start 07/24/16 at 17:00 Isoniazid (Isoniazid) 300 mg DAILY PO Last administered on 08/16/16 08:21; Admin Dose 300 MG; Start 07/24/16 at 15:30 Pyridoxine HCl (Vitamin B6) 50 mg DAILY PO Last administered on 08/16/16 08:21 ; Admin Dose 50 MG; Start 07/25/16 at 09:00 Miscellaneous Information 1 ea NOTE XX ; Start 07/24/16 at 16:00 Glucose (Glutose) 15 gm Q15M PRN PO DECREASED GLUCOSE; Start 07/24/16 at 16:00 Glucose (Glutose) 22.5 gm Q15M PRN PO DECREASED GLUCOSE; Start 07/24/16 at 16: 00 Dextrose (D50w Syringe) 25 ml Q15M PRN IV DECREASED GLUCOSE; Start 07/24/16 at 16:00 Dextrose (D50w Syringe) 50 ml Q15M PRN IV DECREASED GLUCOSE; Start 07/24/16 at 16:00 Glucagon (Glucagen) 1 mg Q15M PRN IM DECREASED GLUCOSE; Start 07/24/16 at 16:00 Glucose (Glutose) 15 gm Q15M PRN BUCCAL DECREASED GLUCOSE; Start 07/24/16 at 16 :00 Ondansetron HCl (Zofran Inj) 4 mg Q4 PRN IV nausea Last administered on 21:40; Admin Dose 4 MG; Start 07/24/16 at 17:00 Metoclopramide HCl (Reglan) 5 mg Q4H PRN IV NAUSEA Last administered on 16:40; Admin Dose 5 MG; Start 07/24/16 at 22:30 Diagnostic Test (Pha) (Accu-Chek) 1 ea 02 XX Last administered on 08/16/16 01: 56; Admin Dose 1 EA; Start 07/26/16 at 12:00 Pantoprazole (Protonix Tab) 40 mg DAILY@06 PO Last administered on 08/16/16 06 :05; Admin Dose 40 MG; Start 07/28/16 at 06:00 Hydralazine HCl (Apresoline) 20 mg Q4 PRN IV ELEVATED BLOOD PRESSURE Last administered on 08/04/16 16:35; Admin Dose 20 MG; Start 07/28/16 at 02:00 Polyethylene Glycol (Miralax) 17 gm DAILY PRN GTB CONSTIPATION Last administered on 07/28/16 20:22; Admin Dose 17 GM; Start 07/28/16 at 19:30 Lorazepam (Ativan) 1 mg Q4H PRN IV anxiety Last administered on 07/30/16 20:48 ; Admin Dose 1 MG; Start 07/29/16 at 06:30 Ethambutol HCl (Myambutol) 900 mg TuThSa@20 PO Last administered on 08/13/16 21:41; Admin Dose 900 MG; Start 07/31/16 at 20:00 Pyrazinamide (Pyrazinamide) 1,250 mg TuThSa@20 PO Last administered on 21:44; Admin Dose 1,250 MG; Start 07/31/16 at 20:00 Hydromorphone HCl (Dilaudid) 1 mg Q2H PRN IV pain Last administered on 08:22; Admin Dose 1 MG; Start 08/02/16 at 19:00 Zolpidem Tartrate (Ambien) 5 mg HS PRN PO INSOMNIA Last administered on 22:40; Admin Dose 5 MG; Start 08/08/16 at 21:00 Benazepril HCl (Lotensin) 10 mg BID PO ; Start 08/09/16 at 09:00; Status Future Hold Metoprolol Tartrate 25 mg 25 mg BID GTB Last administered on 08/14/16 20:42; Admin Dose 25 MG; Start 08/09/16 at 21:00 Norepinephrine 16 mg/Dextrose 500 ml @ 1.87 mls/hr TITRATE IV Last administered on 08/16/16 07:22; Admin Dose 56.25 MLS/HR; Start 08/09/16 at 15:30 ; Stop 08/16/16 at 13:29 Caspofungin 50 mg/ Sodium Chloride 250 ml @ 250 mls/hr Q24H IVPB Last administered on 08/15/16 17:28; Admin Dose 250 MLS/HR; Start 08/10/16 at 17:00 Sodium Chloride 1,000 ml @ 50 mls/hr Q20H IV Last administered on 08/14/16 17 :48; Admin Dose 50 MLS/HR; Start 08/09/16 at 17:30; Status Future Hold Dopamine HCl/ Dextrose (D5W) 250 ml @ 1.71 mls/hr TITRATE IV Last administered on 08/11/16 15:07; Admin Dose 11.43 MLS/HR; Start 08/10/16 at 15:30 Acetaminophen (Tylenol Tab) 650 mg Q6H PRN PO PAIN AND OR ELEVATED TEMP Last administered on 08/12/16 00:54; Admin Dose 650 MG; Start 08/10/16 at 16:30 Clopidogrel Bisulfate 75 mg 75 mg DAILY PO Last administered on 08/16/16 08:21 ; Admin Dose 75 MG; Start 08/11/16 at 12:00 Phenylephrine HCl 160 mg/Dextrose 500 ml @ 18.75 mls/ hr TITRATE IV Last administered on 08/16/16 10:40; Admin Dose 56.25 MLS/HR; Start 08/12/16 at 06: 00 Sodium Bicarbonate 50 meq/Dextrose/ Sodium Chloride 1,050 ml @ 140 mls/hr Q7H30M IV Last administered on 08/16/16 08:10; Admin Dose 140 MLS/HR; Start at 07:00 Meropenem (Merrem 500 Mg/ 100 ml (Pmx)) 100 ml @ 200 mls/hr Q24H IVPB Last administered on 08/16/16 08:20; Admin Dose 200 MLS/HR; Start 08/13/16 at 09:00 Epoetin Tutu (Epogen (Esrd)) 3,000 units TuThSa@17 SC ; Start 08/14/16 at 17:00 Epoetin Tutu (Epogen (Esrd)) 2,000 units TuThSa@17 SC ; Start 08/14/16 at 17:00 Triglycerides (Mct Oil (Ped)) 10 ml Q6 PO Last administered on 08/16/16 12:52 ; Admin Dose 10 ML; Start 08/14/16 at 12:30 Levofloxacin (Levaquin) 750 mg TuThSa PO Last administered on 08/14/16 20:42; Admin Dose 750 MG; Start 08/14/16 at 20:00 Calcium Carbonate (Tums) 500 mg TID PO Last administered on 08/16/16 12:53; Admin Dose 500 MG; Start 08/15/16 at 09:00 Insulin Glargine (Lantus) 15 unit DAILY SC Last administered on 08/16/16 09:40 ; Admin Dose 15 UNIT; Start 08/16/16 at 09:00 Midodrine 5 mg 5 mg BID@09,17 PO Last administered on 08/16/16 09:39; Admin Dose 5 MG; Start 08/15/16 at 17:00 Vasopressin 60 unit/Dextrose 60 ml @ 1.2 mls/hr Q12H IV Last administered on 09:34; Admin Dose 1.2 MLS/HR; Start 08/16/16 at 09:30 Epinephrine 0.8 mg/Dextrose 50.8 ml @ 0 mls/hr IV IVPB ; Start 08/16/16 at 13: 00; Status UNV Norepinephrine/ Dextrose (Levophed/D5W) 250 ml @ 0.46 mls/hr TITRATE IV ; Start 08/16/16 at 13:30 PHILL PAGE M.D. Aug 16, 2016 13:19
[2016-08-16] MEDS ORDERED: EPINEPHRINE 4 MG in NS 250 ML IV SCH (14:00)
[2016-08-16] MEDS ORDERED: ALBUMIN HUMAN 25% 100 ML IV ONE (14:00)
--- NOTE | 2016-08-16 16:07 | QN ---
Documentation Comment CODE MAC was called to room 103 and I responded. Patient is a 60-year-old male who had been maxed on 3 pressors as blood pressure had continued to decrease. He did lose pulses and when I arrived he had been given one epinephrine and CPR was in progress. On pulse check the patient did regain pulses. Blood pressure remained low though the patient did have central pulses. His respirations were then agonal. Bag mask ventilation was continued throughout. I intubated the patient subsequently. I Reviewed the patient's labs and vital signs. He had been breathing in the mid 20s consistently. I set his respiratory rate at 20 request that a blood gas be sent his acidotic the patient was. Had a 500 mL bolus hung. Patient had received dialysis with 700 mL. Has consistent drainage from his chest tube as well. Dr. Saunders came to the bedside eventually and informed me that the patient had ruptured his thoracic duct likely and that is why his chest tube output of serious illness drainage was so high. He is calling Dr. Larry Urrutia currently. Admitting epinephrine drip. Mechelle spoke with the family. ET intubation note: The ICU with diagnosis ventilation. RSI was used with 100 mg of rocuronium and 20 mg of etomidate. Patient was easily intubated without a stylette through easily visualized vocal cords using a Mac 4 blade and a size 7.5 ET tube. Oxygen saturation was 100% after the procedure. Patient tolerated this procedure well no complications. BASSEM BERRIOS DO Aug 16, 2016 16:07
--- NOTE | 2016-08-16 16:46 | CONS ---
Date/Time of Note Date/Time of Note DATE: 08/16/16 TIME: 16:36 Assessment/Plan Assessment/Plan Chief Complaint/Hosp Course IMPRESSION: 1. Recurrent pleural effusions. s/p vats 2. Lung infiltrate./cavitary lesion 3. chronic lung disease. 4. Hypotension better 5. Diabetes mellitus. 6. End-stage renal disease. 7. anemia. 8. cad. 9. hypotension on pressor 10. ashd 11. vdrf 12. The patient on anti-tuberculosis treatment. 13. 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) Exam/Review of Systems Vital Signs Vitals Vital Signs Date Time Temp Pulse Resp B/P Pulse Ox O2 Delivery O2 Flow Rate FiO2 08/16/16 15:35 117 20 100 08/16/16 14:00 93/63 Nasal Cannula 08/16/16 13:45 100 08/16/16 12:00 97.9 08/16/16 11:00 2.0 Intake and Output 08/15/16 08/15/16 08/16/16 15:00 23:00 07:00 Intake Total 1632.47 ml 1577.48 ml 1539.98 ml Output Total 550 ml 50 ml 1850 ml Balance 1082.47 ml 1527.48 ml -310.02 ml Exam Respiratory: clear to auscultation Cardiovascular: regular rate and rhythm Gastrointestinal: soft Musculoskeletal: nl extremities to inspection Extremities: normal pulses Results Result Diagram: 08/16/16 0600 08/16/16 0600 Results 24 hrs Laboratory Tests Test 08/15/16 17:30 08/15/16 20:00 08/15/16 21:39 08/16/16 00:40 Bedside Glucose 71 134 193 Calcium Level 6.2 L Ionized Calcium (Measured) 0.9 L Test 08/16/16 01:33 08/16/16 06:00 08/16/16 07:57 08/16/16 11:39 Bedside Glucose 186 250 H 329 H White Blood Count 17.8 #H Red Blood Count 2.91 L Hemoglobin 9.4 L Hematocrit 27.5 L Mean Corpuscular Volume 94.5 Mean Corpuscular Hemoglobin 32.3 Mean Corpuscular Hemoglobin Concent 34.2 Red Cell Distribution Width 17.4 H Platelet Count 101 #L Mean Platelet Volume 11.6 H Neutrophils % 89.7 H Lymphocytes % 3.4 L Monocytes % 5.4 Eosinophils % 0.5 Basophils % 0.1 Nucleated Red Blood Cells % 0.0 Neutrophils # 15.9 H Lymphocytes # 0.6 L Monocytes # 1.0 H Eosinophils # 0.1 Basophils # 0.0 Nucleated Red Blood Cells # 0.0 Sodium Level 138 Potassium Level 2.9 *L Chloride Level 105 Carbon Dioxide Level 27 Anion Gap 9 Blood Urea Nitrogen 31 #H Creatinine 2.89 #H Glucose Level 250 H Calcium Level 7.4 L Total Bilirubin 1.3 Direct Bilirubin 0.50 #H Indirect Bilirubin 0.8 Aspartate Amino Transf (AST/SGOT) 54 H Alanine Aminotransferase (ALT/SGPT) 27 Alkaline Phosphatase 156 H Total Protein 3.3 L Albumin 1.5 L Globulin 1.80 Albumin/Globulin Ratio 0.83 Medications Medications Current Medications Aspirin (Halfprin) 81 mg DAILY PO Last administered on 08/16/16 08:21; Admin Dose 81 MG; Start 07/25/16 at 09:00; Status Future hold Atorvastatin Calcium (Lipitor) 10 mg QHS PO Last administered on 08/15/16 21: 40; Admin Dose 10 MG; Start 07/24/16 at 21:00 Cholecalciferol (Vitamin D) 400 units DAILY PO Last administered on 08/16/16 08:21; Admin Dose 400 UNITS; Start 07/25/16 at 09:00 Famotidine (Pepcid) 20 mg DAILY PO Last administered on 08/16/16 08:21; Admin Dose 20 MG; Start 07/25/16 at 09:00 Ferrous Sulfate (Ferrous Sulfate (Ec)) 325 mg BID PO Last administered on 08:21; Admin Dose 325 MG; Start 07/24/16 at 21:00 Acetaminophen/ Hydrocodone Bitart ([place] (5/325)) 1 tab Q4H PRN PO PAIN Last administered on 08/14/16 14:11; Admin Dose 1 TAB; Start 07/24/16 at 17:00 Isoniazid (Isoniazid) 300 mg DAILY PO Last administered on 08/16/16 08:21; Admin Dose 300 MG; Start 07/24/16 at 15:30 Pyridoxine HCl (Vitamin B6) 50 mg DAILY PO Last administered on 08/16/16 08:21 ; Admin Dose 50 MG; Start 07/25/16 at 09:00 Miscellaneous Information 1 ea NOTE XX ; Start 07/24/16 at 16:00 Glucose (Glutose) 15 gm Q15M PRN PO DECREASED GLUCOSE; Start 07/24/16 at 16:00 Glucose (Glutose) 22.5 gm Q15M PRN PO DECREASED GLUCOSE; Start 07/24/16 at 16: 00 Dextrose (D50w Syringe) 25 ml Q15M PRN IV DECREASED GLUCOSE; Start 07/24/16 at 16:00 Dextrose (D50w Syringe) 50 ml Q15M PRN IV DECREASED GLUCOSE; Start 07/24/16 at 16:00 Glucagon (Glucagen) 1 mg Q15M PRN IM DECREASED GLUCOSE; Start 07/24/16 at 16:00 Glucose (Glutose) 15 gm Q15M PRN BUCCAL DECREASED GLUCOSE; Start 07/24/16 at 16 :00 Ondansetron HCl (Zofran Inj) 4 mg Q4 PRN IV nausea Last administered on 21:40; Admin Dose 4 MG; Start 07/24/16 at 17:00 Metoclopramide HCl (Reglan) 5 mg Q4H PRN IV NAUSEA Last administered on 16:40; Admin Dose 5 MG; Start 07/24/16 at 22:30 Diagnostic Test (Pha) (Accu-Chek) 1 ea 02 XX Last administered on 08/16/16 01: 56; Admin Dose 1 EA; Start 07/26/16 at 12:00 Pantoprazole (Protonix Tab) 40 mg DAILY@06 PO Last administered on 08/16/16 06 :05; Admin Dose 40 MG; Start 07/28/16 at 06:00 Hydralazine HCl (Apresoline) 20 mg Q4 PRN IV ELEVATED BLOOD PRESSURE Last administered on 08/04/16 16:35; Admin Dose 20 MG; Start 07/28/16 at 02:00 Polyethylene Glycol (Miralax) 17 gm DAILY PRN GTB CONSTIPATION Last administered on 07/28/16 20:22; Admin Dose 17 GM; Start 07/28/16 at 19:30 Lorazepam (Ativan) 1 mg Q4H PRN IV anxiety Last administered on 07/30/16 20:48 ; Admin Dose 1 MG; Start 07/29/16 at 06:30 Ethambutol HCl (Myambutol) 900 mg TuThSa@20 PO Last administered on 08/13/16 21:41; Admin Dose 900 MG; Start 07/31/16 at 20:00 Pyrazinamide (Pyrazinamide) 1,250 mg TuThSa@20 PO Last administered on 21:44; Admin Dose 1,250 MG; Start 07/31/16 at 20:00 Hydromorphone HCl (Dilaudid) 1 mg Q2H PRN IV pain Last administered on 13:56; Admin Dose 1 MG; Start 08/02/16 at 19:00 Zolpidem Tartrate (Ambien) 5 mg HS PRN PO INSOMNIA Last administered on 22:40; Admin Dose 5 MG; Start 08/08/16 at 21:00 Benazepril HCl (Lotensin) 10 mg BID PO ; Start 08/09/16 at 09:00; Status Future Hold Metoprolol Tartrate 25 mg 25 mg BID GTB Last administered on 08/14/16 20:42; Admin Dose 25 MG; Start 08/09/16 at 21:00 Caspofungin 50 mg/ Sodium Chloride 250 ml @ 250 mls/hr Q24H IVPB Last administered on 08/15/16 17:28; Admin Dose 250 MLS/HR; Start 08/10/16 at 17:00 Sodium Chloride 1,000 ml @ 50 mls/hr Q20H IV Last administered on 08/14/16 17 :48; Admin Dose 50 MLS/HR; Start 08/09/16 at 17:30; Status Future Hold Dopamine HCl/ Dextrose (D5W) 250 ml @ 1.71 mls/hr TITRATE IV Last administered on 08/11/16 15:07; Admin Dose 11.43 MLS/HR; Start 08/10/16 at 15:30 Acetaminophen (Tylenol Tab) 650 mg Q6H PRN PO PAIN AND OR ELEVATED TEMP Last administered on 08/12/16 00:54; Admin Dose 650 MG; Start 08/10/16 at 16:30 Clopidogrel Bisulfate 75 mg 75 mg DAILY PO Last administered on 08/16/16 08:21 ; Admin Dose 75 MG; Start 08/11/16 at 12:00 Phenylephrine HCl 160 mg/Dextrose 500 ml @ 18.75 mls/ hr TITRATE IV Last administered on 08/16/16 10:40; Admin Dose 56.25 MLS/HR; Start 08/12/16 at 06: 00 Sodium Bicarbonate 50 meq/Dextrose/ Sodium Chloride 1,050 ml @ 140 mls/hr Q7H30M IV Last administered on 08/16/16 08:10; Admin Dose 140 MLS/HR; Start at 07:00 Meropenem (Merrem 500 Mg/ 100 ml (Pmx)) 100 ml @ 200 mls/hr Q24H IVPB Last administered on 08/16/16 08:20; Admin Dose 200 MLS/HR; Start 08/13/16 at 09:00 Epoetin Tutu (Epogen (Esrd)) 3,000 units TuThSa@17 SC ; Start 08/14/16 at 17:00 Epoetin Tutu (Epogen (Esrd)) 2,000 units TuThSa@17 SC ; Start 08/14/16 at 17:00 Triglycerides (Mct Oil (Ped)) 10 ml Q6 PO Last administered on 08/16/16 12:52 ; Admin Dose 10 ML; Start 08/14/16 at 12:30 Levofloxacin (Levaquin) 750 mg TuThSa PO Last administered on 08/14/16 20:42; Admin Dose 750 MG; Start 08/14/16 at 20:00 Calcium Carbonate (Tums) 500 mg TID PO Last administered on 08/16/16 12:53; Admin Dose 500 MG; Start 08/15/16 at 09:00 Insulin Glargine (Lantus) 15 unit DAILY SC Last administered on 08/16/16 09:40 ; Admin Dose 15 UNIT; Start 08/16/16 at 09:00 Midodrine 5 mg 5 mg BID@09,17 PO Last administered on 08/16/16 09:39; Admin Dose 5 MG; Start 08/15/16 at 17:00 Vasopressin 60 unit/Dextrose 60 ml @ 1.2 mls/hr Q12H IV Last administered on 09:34; Admin Dose 1.2 MLS/HR; Start 08/16/16 at 09:30 Norepinephrine 32 mg/Dextrose 250 ml @ 0.46 mls/hr TITRATE IV ; Start 08/16/16 at 13:30 Epinephrine/ Sodium Chloride (EPINEPHrine/NS) 250 ml @ 3.75 mls/hr TITRATE IV ; Start 08/16/16 at 14:00 PAOLA MOODY MD Aug 16, 2016 16:46
[2016-08-16] MEDS ORDERED: SODIUM BICARBONATE (IV ADD) 50 MEQ in DEXTROSE 5%-0.45% NACL 1,000 ML IV SCH ×6 (17:00)
[2016-08-16 17:07] LABS: ADD SCAN DIFF NO
[2016-08-16 17:08] LABS: ABNORMAL IP MESSAGE 1; HEMATOCRIT 29.4 % (42.0-52.0); HEMOGLOBIN 9.6 g/dl (14.0-18.0); MEAN CORPUSCULAR HEMOGLOBIN 33.3 pg (29.0-33.0); MEAN CORPUSCULAR HGB CONC 32.7 g/dl (32.0-37.0); MEAN CORPUSCULAR VOLUME 102.1 fl (82.0-101.0); PLATELET COUNT 98 10^3/UL (140-415); RED BLOOD COUNT 2.88 10^6/ul (4.70-6.10); RED CELL DISTRIBUTION WIDTH 18.2 % (11.5-14.5)
[2016-08-16 17:09] LABS: AADO2 Arterial 134.7 mmHg (7.0-24.0); Allen Test ACCEPTAB; Arterial Base Excess -14.7 mmol/L (-3.0-3); Arterial COHb 0.3 % (0.0-3.0); Arterial Fraction of Oxyhgb 98.7 % (93.0-99.0); Arterial HCO3 11.2 mmol/L (22.0-26.0); Arterial MetHb 0.5 % (0.0-1.5); Arterial Total Hemglobin 10.7 g/dl (12.0-18.0); MODE VENT - AC
[2016-08-16] MEDS: EPOETIN 3000 UNITS/1 ML INJ (ESRD) SC SCH (17:25)
[2016-08-16] MEDS: EPOETIN 2000 UNITS/1 ML INJ (ESRD) SC SCH (17:26)
[2016-08-16] MEDS: CASPOFUNGIN 50 MG in SOD CHLORIDE 0.9% 250 ML IVPB SCH (17:27)
[2016-08-16 17:30] LABS: ALBUMIN 1.8 g/dl (3.3-4.9); ALBUMIN/GLOBULIN RATIO 0.94; BILIRUBIN,DIRECT 1.4 mg/dl (0.00-0.20); BILIRUBIN,INDIRECT 0.6 mg/dl (0-1.1); CALCIUM 6.2 mg/dl (8.4-10.2); CREATININE 4.02 mg/dl (0.61-1.24); POTASSIUM 3.7 mmol/L (3.5-5.1); TOTAL PROTEIN 3.7 g/dl (6.1-8.1)
[2016-08-16] MEDS: NORepinephrine 32 MG in DEXTROSE 5% 218 ML IV SCH (18:22)
[2016-08-16] MEDS: SODIUM BICARBONATE (IV ADD) 100 MEQ in DEXTROSE 5% 1,000 ML IV SCH (18:24)
[2016-08-16 18:58] LABS: LYMPHOCYTES # 0.6 10^3/ul (0.8-2.9); MONOCYTE # 1.8 10^3/ul (0.3-0.9); NEUTROPHIL # 26.7 10^3/ul (1.6-7.5)
[2016-08-16 19:01] LABS: BURR CELLS 2+; PLATELET ESTIMATE PLT APPEAR DECREASED
[2016-08-16] MEDS: LEVOFLOXACIN 750 MG TABLET PO SCH (20:00)
[2016-08-16] MEDS: ETHAMBUTOL 400 MG TAB PO SCH (20:00)
[2016-08-16] MEDS: PYRAZINAMIDE 500 MG TAB PO SCH (20:00)
--- NOTE | 2016-08-16 20:36 | RADRPT ---
PROCEDURE: XR Chest. CLINICAL INDICATION: Status post intubation TECHNIQUE: Single frontal view of the chest was obtained COMPARISON: 08/11/2016 FINDINGS: The tip of the endotracheal tube is approximately 6.9 cm above the steffanie. 2 right chest tubes are again seen with the tips in the right apical region and medial base of the right chest respectively. Dual chamber cardiac pacemaker is again seen. The patient appears to be status post CABG. Calcif ication in the aortic arch. The heart is not enlarged. External cardiac pacemaker pad projected ov er left mid chest. Additional skin willis are apparent projected over the right lower chest. Patch y density in the right lower lung could be secondary to atelectasis or infiltrate improved compared to previous study. Minimal linear atelectasis/fibrosis in left mid lung again seen. Mild gastric d istension with air again seen. Likely external cardiac pacemaker pad projected over central abdomen . IMPRESSION: Endotracheal tube tip approximately 6.9 cm above steffanie. Please see above. RPTAT: HJES .Osito Scott MD, MD Date Time Electronically viewed and signed by .Osito Scott MD, on 08/16/2016 20:35 .S/
[2016-08-16] MEDS: ATORVASTATIN 10 MG TAB PO SCH (21:00)
--- NOTE | 2016-08-16 21:14 | CONS ---
HANLEYNORI VERMA PYRIDINE OPERATOR 08/16/16 2114: Date/Time of Note Date/Time of Note DATE: 08/16/16 TIME: 21:11 Assessment/Plan Assessment/Plan Chief Complaint/Hosp Course - possible tubercular empyema: R sided complex loculated air containing empyemas , visceral and parietal pleural calcifications. - a 35 mm lesion with possible cavitation in the anterior inferior RUL, possible recurrent tuberculosis - high risk for TB: history (originally from [facility], spends one month of each year in [facility], last in 09/2015), medical history (DM, ESRD), laboratory findings (positive quantiferon TB gold, granulomatous inflammation with focal necrosis on Bx of pleura) - AFB smear was negative x3, also M. tuberculosis DNA probe to the 1st sputum sample was undetectable in early 07/2016; mycobacterium tuberculosis DNA probe to fluid in GUIDO bulb sent on 08/06/2016 was negative - s/p first R VATS, total pulmonary decortication, R pleurodesis on 06/30/2016. Biopsy was negative for fungal stain and AFB stain (micro lab and pathology department), as well as malignancy. It showed granulomatous inflammation with focal necrosis and extensive hyalinization. - s/p second R VATS, decortication thoracotomy on 08/04/2016. Per Dr. Martinez, the tissue did not appear empyema. It was largely blood clots and tissue debris. Fluid was sent for cultures, but not tissue. Path showed blood and polarizable foreign material, no malignancy - sputum collected on 08/02/2016 was negative for mycobacterium tuberculosis DNA probe - h/o recurrent pleural effusion requiring thoracentesis approximately once a year, last performed in 04/2016 prior to this admission - positive quantiferon TB gold status of unknown duration. Per Pt, his past PPD was done in 2013, and was negative. 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 - DM s/p hypoglycemic episode on 08/04/16 & 08/06/16 (Hgb A1c 5.2% on 06/17/16 unreliable d/t recent blood transfusion; Hgb A1c 8.6% on 05/03/15) - ESRD on HD - CAD s/p CABG in 2010 and cardiac stent in 2013 - Moderate to severe protein calorie malnutrition - HIV screen negative in 07/2016 tested at [facility] - Sepsis vs SIRS; Procalc 10.04 on 08/09/16 - Hypotension requiring Levophed & Dopamine - Hyperbilirubinemia - Hyponatremia - Hypocalcemia - Shock, hypovolemic +/- septic, on pressor support - PEA arrest 08/16/16 - Acute respiratory failure s/p intubation 08/16/16 - Elevated troponin Recommendations: - Faith cx (blood cx x2 sets - one from central line; one peripherally; sputum cx) - Restart IV Vanco - pharmacy to renally dose - F/u [id number] 08/10/16 (?cancelled; re-ordered on 08/14/16) - continue empiric jae/caspofungin (08/09/16-) - continue renally dosed po Levaquin 750 mg 3x/week after HD as recommended by TB Control (08/12/16-) - continue renally dosed isoniazid, pyrazinamide, ethambutol and vitamin B6 supplement (07/12/2016-) - awaiting cocci CF (pending) and crypto antigen (negative) in serum---sent 08/12 - check LFTs' weekly - consider repeat CT chest - Management d/w MANAGER AUDIODOUGLAS Arriola - Above d/w Dr. Verduzco - Critical care time spent: 45 minutes Problems: Consultation Date/Type/Reason Admit Date/Time Jul 24, 2016 at 12:53 Initial Consult Date 07/25/16 Type of Consultation: Infectious Disease Referring Provider: EVA COX MD 24 HR Interval Summary Free Text/Dictation Afebrile with >1 L output from chest tube q shift; pt coded around 3-4PM with PEA arrest, was intubated and now on Levo, Angelito, and Vasopressin; also having diarrhea per d/w MANAGER AUDIODOUGLAS Arriola. Subjective hx not possible: pt critical status Exam/Review of Systems Vital Signs Vitals Vital Signs Date Time Temp Pulse Resp B/P Pulse Ox O2 Delivery O2 Flow Rate FiO2 08/16/16 20:45 140 20 182/131 08/16/16 20:15 96.4 100 08/16/16 20:00 Mechanical Ventilator 08/16/16 20:00 50 08/16/16 11:00 2.0 Intake and Output 08/15/16 08/15/16 08/16/16 15:00 23:00 07:00 Intake Total 1632.47 ml 1577.48 ml 1539.98 ml Output Total 550 ml 50 ml 1850 ml Balance 1082.47 ml 1527.48 ml -310.02 ml Exam Constitutional: frail, non-verbal, other (orally intubated and sedated) Head: atraumatic, normocephalic Eyes: icteric (mild) ENMT: intubated, nl external ears & nose, other (No thrush noted; MM pink and dry) Neck: other (unable to evaluate) Respiratory: diminished breath sounds, other (Right chest tube with serosanguinous drainage) Cardiovascular: other (tachycardic) Gastrointestinal: bowel sounds, other (small amount diarrhea noted), soft Genitourinary - Male: other (bilateral groin HD catheter intact; pt anuric) Musculoskeletal: muscle weakness Extremities: normal pulses, No clubbing, No cyanosis, No edema Neurological: other (sedated) Results Result Diagram: 08/16/168 08/16/16 1658 Results 24 hrs Laboratory Tests Test 08/15/16 21:39 08/16/16 00:40 08/16/16 01:33 08/16/16 06:00 Bedside Glucose 134 193 186 White Blood Count 17.8 #H Red Blood Count 2.91 L Hemoglobin 9.4 L Hematocrit 27.5 L Mean Corpuscular Volume 94.5 Mean Corpuscular Hemoglobin 32.3 Mean Corpuscular Hemoglobin Concent 34.2 Red Cell Distribution Width 17.4 H Platelet Count 101 #L Mean Platelet Volume 11.6 H Neutrophils % 89.7 H Lymphocytes % 3.4 L Monocytes % 5.4 Eosinophils % 0.5 Basophils % 0.1 Nucleated Red Blood Cells % 0.0 Neutrophils # 15.9 H Lymphocytes # 0.6 L Monocytes # 1.0 H Eosinophils # 0.1 Basophils # 0.0 Nucleated Red Blood Cells # 0.0 Sodium Level 138 Potassium Level 2.9 *L Chloride Level 105 Carbon Dioxide Level 27 Anion Gap 9 Blood Urea Nitrogen 31 #H Creatinine 2.89 #H Glucose Level 250 H Calcium Level 7.4 L Total Bilirubin 1.3 Direct Bilirubin 0.50 #H Indirect Bilirubin 0.8 Aspartate Amino Transf (AST/SGOT) 54 H Alanine Aminotransferase (ALT/SGPT) 27 Alkaline Phosphatase 156 H Total Protein 3.3 L Albumin 1.5 L Globulin 1.80 Albumin/Globulin Ratio 0.83 Test 08/16/16 07:57 08/16/16 11:39 08/16/16 16:58 08/16/16 17:00 Bedside Glucose 250 H 329 H White Blood Count 30.7 #H Red Blood Count 2.88 L Hemoglobin 9.6 L Hematocrit 29.4 L Mean Corpuscular Volume 102.1 H Mean Corpuscular Hemoglobin 33.3 H Mean Corpuscular Hemoglobin Concent 32.7 Red Cell Distribution Width 18.2 H Platelet Count 98 L Mean Platelet Volume 12.0 H Neutrophils % 87.0 H Band Neutrophils % 5.0 Lymphocytes % 2.0 L Monocytes % 6.0 Neutrophils # 26.7 H Lymphocytes # 0.6 L Monocytes # 1.8 H Platelet Estimate PLT APPEAR DECREASED Macrocytosis 1+ Sodium Level 129 L Potassium Level 3.7 Chloride Level 101 Carbon Dioxide Level 16 #L Anion Gap 16 # Blood Urea Nitrogen 36 H Creatinine 4.02 #H Glucose Level 372 H Calcium Level 6.2 L Total Bilirubin 2.0 H Direct Bilirubin 1.40 #H Indirect Bilirubin 0.6 Aspartate Amino Transf (AST/SGOT) 395 #H Alanine Aminotransferase (ALT/SGPT) 37 Alkaline Phosphatase 128 H Troponin I 2.030 *H Total Protein 3.7 L Albumin 1.8 L Globulin 1.90 Albumin/Globulin Ratio 0.94 Blood Gas Specimen Source Blood arterial Arterial Blood Date Drawn 08/16/2016 4:50:34 PM Arterial Blood pH (Temp corrected) 7.238 *L Arterial Blood pCO2 (Temp correct) 26.9 L Arterial Blood pO2 (Temp corrected) 551.4 H Arterial Blood HCO3 11.2 L Arterial Blood Base Excess -14.7 L Arterial Blood Oxygen Saturation 99.5 H Yoshi Test ACCEPTAB Arterial Blood Gas Puncture Site Left Radial Arterial Blood Carboxyhemoglobin 0.3 Arterial Blood Methemoglobin 0.5 Blood Gas A-a O2 Differential 134.7 H Oxyhemoglobin Percent 98.7 Total Hemoglobin 10.7 L Blood Gas Temperature 37.0 Blood Gas Respiration Rate 20.0 Blood Gas Actual Respiration Rate 20 Blood Gas Modality VENT - AC FiO2 100.0 Blood Gas Tidal Volume 600.0 Blood Gas Critical Value Read Back BAIRON COLE Blood Gas Notified Whom Blood Gas Notified Time 08/16/2016 5:07:32 PM Test 08/16/16 17:32 08/16/16 20:38 Bedside Glucose 352 H 292 H Medications Medications Current Medications Aspirin (Halfprin) 81 mg DAILY PO Last administered on 08/16/16 08:21; Admin Dose 81 MG; Start 07/25/16 at 09:00; Status Future hold Atorvastatin Calcium (Lipitor) 10 mg QHS PO Last administered on 08/15/16 21: 40; Admin Dose 10 MG; Start 07/24/16 at 21:00 Cholecalciferol (Vitamin D) 400 units DAILY PO Last administered on 08/16/16 08:21; Admin Dose 400 UNITS; Start 07/25/16 at 09:00 Famotidine (Pepcid) 20 mg DAILY PO Last administered on 08/16/16 08:21; Admin Dose 20 MG; Start 07/25/16 at 09:00 Ferrous Sulfate (Ferrous Sulfate (Ec)) 325 mg BID PO Last administered on 08:21; Admin Dose 325 MG; Start 07/24/16 at 21:00 Acetaminophen/ Hydrocodone Bitart (Magnolia (5/325)) 1 tab Q4H PRN PO PAIN Last administered on 08/14/16 14:11; Admin Dose 1 TAB; Start 07/24/16 at 17:00 Isoniazid (Isoniazid) 300 mg DAILY PO Last administered on 08/16/16 08:21; Admin Dose 300 MG; Start 07/24/16 at 15:30 Pyridoxine HCl (Vitamin B6) 50 mg DAILY PO Last administered on 08/16/16 08:21 ; Admin Dose 50 MG; Start 07/25/16 at 09:00 Miscellaneous Information 1 ea NOTE XX ; Start 07/24/16 at 16:00 Glucose (Glutose) 15 gm Q15M PRN PO DECREASED GLUCOSE; Start 07/24/16 at 16:00 Glucose (Glutose) 22.5 gm Q15M PRN PO DECREASED GLUCOSE; Start 07/24/16 at 16: 00 Dextrose (D50w Syringe) 25 ml Q15M PRN IV DECREASED GLUCOSE; Start 07/24/16 at 16:00 Dextrose (D50w Syringe) 50 ml Q15M PRN IV DECREASED GLUCOSE; Start 07/24/16 at 16:00 Glucagon (Glucagen) 1 mg Q15M PRN IM DECREASED GLUCOSE; Start 07/24/16 at 16:00 Glucose (Glutose) 15 gm Q15M PRN BUCCAL DECREASED GLUCOSE; Start 07/24/16 at 16 :00 Ondansetron HCl (Zofran Inj) 4 mg Q4 PRN IV nausea Last administered on 21:40; Admin Dose 4 MG; Start 07/24/16 at 17:00 Metoclopramide HCl (Reglan) 5 mg Q4H PRN IV NAUSEA Last administered on 16:40; Admin Dose 5 MG; Start 07/24/16 at 22:30 Diagnostic Test (Pha) (Accu-Chek) 1 ea 02 XX Last administered on 08/16/16 01: 56; Admin Dose 1 EA; Start 07/26/16 at 12:00 Pantoprazole (Protonix Tab) 40 mg DAILY@06 PO Last administered on 08/16/16 06 :05; Admin Dose 40 MG; Start 07/28/16 at 06:00 Hydralazine HCl (Apresoline) 20 mg Q4 PRN IV ELEVATED BLOOD PRESSURE Last administered on 08/04/16 16:35; Admin Dose 20 MG; Start 07/28/16 at 02:00 Polyethylene Glycol (Miralax) 17 gm DAILY PRN GTB CONSTIPATION Last administered on 07/28/16 20:22; Admin Dose 17 GM; Start 07/28/16 at 19:30 Lorazepam (Ativan) 1 mg Q4H PRN IV anxiety Last administered on 07/30/16 20:48 ; Admin Dose 1 MG; Start 07/29/16 at 06:30 Ethambutol HCl (Myambutol) 900 mg TuThSa@20 PO Last administered on 08/13/16 21:41; Admin Dose 900 MG; Start 07/31/16 at 20:00 Pyrazinamide (Pyrazinamide) 1,250 mg TuThSa@20 PO Last administered on 21:44; Admin Dose 1,250 MG; Start 07/31/16 at 20:00 Hydromorphone HCl (Dilaudid) 1 mg Q2H PRN IV pain Last administered on 13:56; Admin Dose 1 MG; Start 08/02/16 at 19:00 Zolpidem Tartrate (Ambien) 5 mg HS PRN PO INSOMNIA Last administered on 22:40; Admin Dose 5 MG; Start 08/08/16 at 21:00 Benazepril HCl (Lotensin) 10 mg BID PO ; Start 08/09/16 at 09:00; Status Future Hold Metoprolol Tartrate 25 mg 25 mg BID GTB Last administered on 08/14/16 20:42; Admin Dose 25 MG; Start 08/09/16 at 21:00 Caspofungin 50 mg/ Sodium Chloride 250 ml @ 250 mls/hr Q24H IVPB Last administered on 08/16/16 17:27; Admin Dose 250 MLS/HR; Start 08/10/16 at 17:00 Sodium Chloride 1,000 ml @ 50 mls/hr Q20H IV Last administered on 08/14/16 17 :48; Admin Dose 50 MLS/HR; Start 08/09/16 at 17:30; Status Future Hold Dopamine HCl/ Dextrose (D5W) 250 ml @ 1.71 mls/hr TITRATE IV Last administered on 08/11/16 15:07; Admin Dose 11.43 MLS/HR; Start 08/10/16 at 15:30 Acetaminophen (Tylenol Tab) 650 mg Q6H PRN PO PAIN AND OR ELEVATED TEMP Last administered on 08/12/16 00:54; Admin Dose 650 MG; Start 08/10/16 at 16:30 Clopidogrel Bisulfate 75 mg 75 mg DAILY PO Last administered on 08/16/16 08:21 ; Admin Dose 75 MG; Start 08/11/16 at 12:00 Phenylephrine HCl 160 mg/Dextrose 500 ml @ 18.75 mls/ hr TITRATE IV Last administered on 08/16/16 17:19; Admin Dose 56.25 MLS/HR; Start 08/12/16 at 06: 00 Meropenem (Merrem 500 Mg/ 100 ml (Pmx)) 100 ml @ 200 mls/hr Q24H IVPB Last administered on 08/16/16 08:20; Admin Dose 200 MLS/HR; Start 08/13/16 at 09:00 Epoetin Tutu (Epogen (Esrd)) 3,000 units TuThSa@17 SC Last administered on 08/16 17:25; Admin Dose 3,000 UNITS; Start 08/14/16 at 17:00 Epoetin Tutu (Epogen (Esrd)) 2,000 units TuThSa@17 SC Last administered on 08/16 17:26; Admin Dose 2,000 UNITS; Start 08/14/16 at 17:00 Triglycerides (Mct Oil (Ped)) 10 ml Q6 PO Last administered on 08/16/16 12:52 ; Admin Dose 10 ML; Start 08/14/16 at 12:30 Levofloxacin (Levaquin) 750 mg TuThSa PO Last administered on 08/14/16 20:42; Admin Dose 750 MG; Start 08/14/16 at 20:00 Calcium Carbonate (Tums) 500 mg TID PO Last administered on 08/16/16 12:53; Admin Dose 500 MG; Start 08/15/16 at 09:00 Insulin Glargine (Lantus) 15 unit DAILY SC Last administered on 08/16/16 09:40 ; Admin Dose 15 UNIT; Start 08/16/16 at 09:00 Midodrine 5 mg 5 mg BID@09,17 PO Last administered on 08/16/16 09:39; Admin Dose 5 MG; Start 08/15/16 at 17:00 Vasopressin 60 unit/Dextrose 60 ml @ 1.2 mls/hr Q12H IV Last administered on 09:34; Admin Dose 1.2 MLS/HR; Start 08/16/16 at 09:30 Norepinephrine 32 mg/Dextrose 250 ml @ 0.46 mls/hr TITRATE IV Last administered on 08/16/16 18:22; Admin Dose 14.06 MLS/HR; Start 08/16/16 at 13: 30 Epinephrine 4 mg/ Sodium Chloride 250 ml @ 3.75 mls/hr TITRATE IV ; Start 08/16 at 14:00 Albumin Human 50 ml @ 100 mls/hr DAILY ONCE IV ; Start 08/17/16 at 09:00; Stop 08/17/16 at 09:29 Sodium Bicarbonate/ Dextrose (Na Bicarb/D5W) 1,100 ml @ 150 mls/hr Q7H20M IV Last administered on 4/15/17at 18:24; Admin Dose 150 MLS/HR; Start 08/16/16 at 18:30 Procedures Procedures CXR 08/16/16: The tip of the endotracheal tube is approximately 6.9 cm above the steffanie. 2 right chest tubes are again seen with the tips in the right apical region and medial base of the right chest respectively. Dual chamber cardiac pacemaker is again seen. The patient appears to be status post CABG. Calcification in the aortic arch. The heart is not enlarged. External cardiac pacemaker pad projected over left mid chest. Additional skin willis are apparent projected over the right lower chest. Patchy density in the right lower lung could be secondary to atelectasis or infiltrate improved compared to previous study. Minimal linear atelectasis/fibrosis in left mid lung again seen. Mild gastric distension with air again seen. Likely external cardiac pacemaker pad projected over central abdomen. YUMIKO VERDUZCO M.D. 08/17/16 2347: Assessment/Plan Assessment/Plan Additional Assessment/Plan Dax attestation: I discussed the management with DENNIS Hanley and agree with above Exam/Review of Systems Results Result Diagram: 08/16/16 1658 08/16/16 1658 NORI HANLEY NP Aug 16, 2016 21:14 YUMIKO VERDUZCO M.D. Aug 17, 2016 23:47
[2016-08-16] MEDS ORDERED: VANCOMYCIN IV PER PHARMACY XX SCH (23:00)
--- NOTE | 2016-08-16 23:56 | RADRPT ---
PROCEDURE: Chest. CLINICAL INDICATION: Chest pain. TECHNIQUE: Single frontal view of the chest was obtained. COMPARISON: 08/16/2016. FINDINGS: There is a left-sided pacemaker. There is an endotracheal tube 5.5 cm above the steffanie. There is a nasogastric tube extending to the stomach. There is a right-sided chest tube extending to the apic al region. There is a small right apical pneumothorax measuring approximately 5%. Right basilar ch est tube is unchanged. The cardiac silhouette is within normal limits. The aortic arch is calcifie d. There is mild bibasilar atelectasis and small right pleural effusion IMPRESSION: Small right apical pneumothorax, increased compared with the prior study. Two right-sided chest tub es remain in place. Mild bibasilar atelectasis and small right pleural effusion, unchanged. Endotracheal and nasogastric tubes in place. .Po Hoyos MD, MD Date Time Electronically viewed and signed by .Po Hoyos MD, MD on 08/16/2016 23:56 .T/
[2016-08-17] VITALS (106 sets, daily range): BP systolic 55–173; BP diastolic 40–125; PULSE 110–221; RESP 5–32
[2016-08-17] MEDS ORDERED: AMIODARONE 150MG/D5W BOLUS 100 ML ONE (00:27)
[2016-08-17] MEDS ORDERED: AMIODARONE 900 MG in DEXTROSE 5% 482 ML IV SCH (00:30)
[2016-08-17] MEDS ORDERED: AMIODARONE 150MG/D5W BOLUS 100 ML IV ONE (00:30)
[2016-08-17 00:32] LABS: CREATININE 3.93 mg/dl (0.61-1.24); MAGNESIUM 1.6 mg/dl (1.7-2.5); POTASSIUM 3.7 mmol/L (3.5-5.1)
[2016-08-17] MEDS ORDERED: MAGNESIUM SULFATE 2 GM/50 ML 50 ML ONE (00:45)
[2016-08-17] MEDS ORDERED: MAGNESIUM SULFATE 2 GM/50 ML 50 ML IVPB ONE (01:00)
[2016-08-17 01:36] LABS: INR 2.88; PT RATIO 2.4
[2016-08-17] MEDS: ACCUCHECK 2 AM XX SCH (02:00)
[2016-08-17] MEDS: SODIUM BICARBONATE (IV ADD) 100 MEQ in DEXTROSE 5% 1,000 ML IV SCH ×3 (04:05→19:30)
[2016-08-17 05:23] LABS: ADD SCAN DIFF NO
[2016-08-17] MEDS: PHENYLephrine 160 MG in DEXTROSE 5% 484 ML IV SCH (05:43)
[2016-08-17] MEDS: PANTOPRAZOLE (EC) 40 MG TAB PO SCH (05:47)
[2016-08-17] MEDS: MED CHAIN TRIGLYCERIDES (PO SYG) PO SCH ×4 (05:47→18:11)
[2016-08-17 05:49] LABS: ABNORMAL IP MESSAGE 1; BASOPHIL # 0.1 10^3/ul (0.0-0.1); BASOPHILS % 0.2 % (0.0-2.0); EOSINOPHILS # 0.1 10^3/ul (0.0-0.5); EOSINOPHILS % 0.5 % (0.0-7.0); HEMOGLOBIN 13.5 g/dl (14.0-18.0); LYMPHOCYTES # 0.8 10^3/ul (0.8-2.9); LYMPHOCYTES % 3.6 % (15.0-51.0); MEAN CORPUSCULAR HEMOGLOBIN 30.9 pg (29.0-33.0); MEAN CORPUSCULAR HGB CONC 34.6 g/dl (32.0-37.0); MEAN CORPUSCULAR VOLUME 89.2 fl (82.0-101.0); MEAN PLATELET VOLUME 13.4 fl (7.4-10.4); MONOCYTE # 0.8 10^3/ul (0.3-0.9); MONOCYTES % 3.4 % (0.0-11.0); NEUTROPHIL # 19.9 10^3/ul (1.6-7.5); NEUTROPHILS % 91.4 % (39.0-77.0); NUCLEATED RED BLOOD CELLS% 0.1 /100WBC (0.0-0.0); PLATELET COUNT 52 10^3/UL (140-415); RED BLOOD COUNT 4.37 10^6/ul (4.70-6.10); RED CELL DISTRIBUTION WIDTH 17.5 % (11.5-14.5); WHITE BLOOD COUNT 21.8 10^3/ul (4.8-10.8)
[2016-08-17 05:52] LABS: POTASSIUM 3.4 mmol/L (3.5-5.1)
[2016-08-17 05:54] LABS: CREATININE 4.18 mg/dl (0.61-1.24)
[2016-08-17 05:55] LABS: CALCIUM 6.1 mg/dl (8.4-10.2)
[2016-08-17 07:07] LABS: PROTIME 30.6 Sec (12.2-14.2)
[2016-08-17] MEDS: INSULIN ASPART [NOVOLOG] 3 ML PEN SC SCH ×7 (07:35→21:00)
[2016-08-17 08:16] LABS: AADO2 Arterial 114.4 mmHg (7.0-24.0); Allen Test ACCEPTAB; Arterial Base Excess -3.7 mmol/L (-3.0-3); Arterial COHb 0.3 % (0.0-3.0); Arterial Fraction of Oxyhgb 98.4 % (93.0-99.0); Arterial MetHb 0.5 % (0.0-1.5); Arterial Total Hemglobin 13.4 g/dl (12.0-18.0); MODE VENT - AC
[2016-08-17] MEDS ORDERED: ALBUMIN HUMAN 25% 50 ML IV ONE (09:00)
[2016-08-17] MEDS: METOPROLOL 25 MG TAB GTB SCH ×2 (09:00→21:00)
[2016-08-17] MEDS: FERROUS SULFATE (EC) 325 MG TAB PO SCH ×2 (09:00→21:00)
[2016-08-17] MEDS: ISONIAZID 300 MG TAB PO SCH (09:00)
[2016-08-17] MEDS: FAMOTIDINE 20 MG TAB PO SCH (09:00)
[2016-08-17] MEDS: CHOLECALCIFEROL 400 UNITS TAB PO SCH (09:00)
[2016-08-17] MEDS: CALCIUM CARBONATE 500 MG CHEW TAB PO SCH ×3 (09:00→21:00)
[2016-08-17] MEDS: MIDODRINE 5 MG TAB PO SCH ×2 (09:00→17:09)
[2016-08-17] MEDS: PYRIDOXINE 50 MG TAB PO SCH (09:00)
[2016-08-17] MEDS: ASPIRIN (EC) 81 MG TAB PO SCH (09:00)
[2016-08-17] MEDS: CLOPIDOGREL 75 MG TAB PO SCH (09:00)
[2016-08-17] MEDS: MEROPENEM 500 MG/100 ML (PMX) 100 ML IVPB SCH (09:12)
[2016-08-17] MEDS: INSULIN GLARGINE [LANtus] 3 ML PEN SC SCH (09:14)
[2016-08-17] MEDS: VASOPRESSIN 60 UNIT in DEXTROSE 5% 57 ML IV SCH ×2 (09:30→21:30)
--- NOTE | 2016-08-17 10:44 | PN ---
Date/Time of Note Date/Time of Note DATE: 08/17/16 TIME: 10:41 Assessment/Plan Lines/Catheters IV Catheter Type (from Nrsg): Pigtail IV Jonas in Place (from Nrsg): No Assessment/Plan Chief Complaint/Hosp Course IMPRESSION: Right chest tube site bleeding, which has now subsided completely. pt coded yesterday more stable today SP VATS Decortication Chylothorax will continue CT sxn may need pleurex cath would need embolization of the thoracic duct done at [facility] [place] discussed with Dr Saunders Problems: Subjective 24 Hr Interval Summary Open Eyes Subjective hx not possible: pt non-verbal Constitutional: improved Pain Control: well controlled Exam/Review of Systems Vital Signs Vitals Vital Signs Date Time Temp Pulse Resp B/P Pulse Ox O2 Delivery O2 Flow Rate FiO2 08/17/16 09:40 40 08/17/16 09:35 155 23 100 08/17/16 08:45 106/87 08/17/16 08:00 97.3 Mechanical Ventilator 08/16/16 11:00 2.0 Intake and Output 08/16/16 08/16/16 08/17/16 15:00 23:00 07:00 Intake Total 2519.6 ml 1789.84 ml 2215.74 ml Output Total 1100 ml 550 ml 1100 ml Balance 1419.6 ml 1239.84 ml 1115.74 ml Exam Neck: non-tender, supple Respiratory: clear to auscultation, normal air movement Additional Comments Tachycardic Results Result Diagram: 08/17/16 0340 08/17/16 0340 LILIA FELIZ MD Aug 17, 2016 10:43
[2016-08-17] MEDS ORDERED: ALBUMIN HUMAN 25% 100 ML IV SCH (11:00)
[2016-08-17] MEDS ORDERED: ALBUMIN HUMAN 25% 100 ML IV ONE (11:00)
--- NOTE | 2016-08-17 11:26 | PN ---
Date/Time of Note Date/Time of Note DATE: 08/17/16 TIME: 11:25 Assessment/Plan VTE Prophylaxis VTE Prophylaxis Intervention: other Lines/Catheters IV Catheter Type (from [facility] Pigtail IV Urinary Cath still in place: No Assessment/Plan Chief Complaint/Hosp Course - Recurrent right pleural effusion consistent with empyema, cavitary lesions, status post right thoracotomy and pulmonary decortication on 08/04. - Hemoptysis, resolved. Dr. Dale is following in pulmonology consultation. Dr. Caitlin balderas is following an infection disease consultation. - Right former chest tube site bleeding, resolved. Dr. Martinez is following in thoracic surgery consultation. - Anemia of acute blood loss, patient had bleeding from the right femoral catheter as well as chest tube site on admission, status post blood transfusion , continue to monitor hemoglobin and hematocrit. Dr. Martinez is following in hematology consultation. 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 - End-stage renal disease, continue hemodialysis. Dr. Saunders is following in nephrology consultation. - Diabetes mellitus type II -Glycemic control - Hypotension. - per Dr. De Santiago in cardiology consultation. - cardaic drugs optimized by Dr De Santiago - restarted on Levophed - NS BOLUS 250 ccx1 - albumin IV - Coronary artery disease, status post coronary artery bypass graft, s/p percutaneous transluminal coronary angioplasty and stent placement to left main and left anterior descending in 2014. - Permanent pacemaker. No acute issues. - Dyslipidemia. Continue Lipitor. - Hyponatremia-per loan auditor. - Malnutrition- dw dr Saunders.started on TPN today. Problems: Subjective 24 Hr Interval Summary Free Text/Dictation Patient remain sedated and intubated, on multiple vasopressors Exam/Review of Systems Vital Signs Vitals Vital Signs Date Time Temp Pulse Resp B/P Pulse Ox O2 Delivery O2 Flow Rate FiO2 08/17/16 10:30 154 21 122/95 99 08/17/16 10:10 Mechanical Ventilator 08/17/16 09:40 40 08/17/16 08:00 97.3 08/16/16 11:00 2.0 Intake and Output 08/16/16 08/16/16 08/17/16 15:00 23:00 07:00 Intake Total 2519.6 ml 1789.84 ml 2215.74 ml Output Total 1100 ml 550 ml 1100 ml Balance 1419.6 ml 1239.84 ml 1115.74 ml Exam Constitutional: well developed Head: atraumatic, normocephalic Neck: supple Respiratory: diminished breath sounds Cardiovascular: regular rate and rhythm Gastrointestinal: non-tender, soft Results Result Diagram: 08/17/16 0340 08/17/16 0340 Results 24 hrs Laboratory Tests Test 08/16/16 11:39 08/16/16 16:58 08/16/16 17:00 08/16/16 17:32 Bedside Glucose 329 H 352 H White Blood Count 30.7 #H Red Blood Count 2.88 L Hemoglobin 9.6 L Hematocrit 29.4 L Mean Corpuscular Volume 102.1 H Mean Corpuscular Hemoglobin 33.3 H Mean Corpuscular Hemoglobin Concent 32.7 Red Cell Distribution Width 18.2 H Platelet Count 98 L Mean Platelet Volume 12.0 H Neutrophils % 87.0 H Band Neutrophils % 5.0 Lymphocytes % 2.0 L Monocytes % 6.0 Neutrophils # 26.7 H Lymphocytes # 0.6 L Monocytes # 1.8 H Platelet Estimate PLT APPEAR DECREASED Macrocytosis 1+ Sodium Level 129 L Potassium Level 3.7 Chloride Level 101 Carbon Dioxide Level 16 #L Anion Gap 16 # Blood Urea Nitrogen 36 H Creatinine 4.02 #H Glucose Level 372 H Calcium Level 6.2 L Total Bilirubin 2.0 H Direct Bilirubin 1.40 #H Indirect Bilirubin 0.6 Aspartate Amino Transf (AST/SGOT) 395 #H Alanine Aminotransferase (ALT/SGPT) 37 Alkaline Phosphatase 128 H Troponin I 2.030 *H Total Protein 3.7 L Albumin 1.8 L Globulin 1.90 Albumin/Globulin Ratio 0.94 Blood Gas Specimen Source Blood arterial Arterial Blood Date Drawn 08/16/2016 4:50:34 PM Arterial Blood pH (Temp corrected) 7.238 *L Arterial Blood pCO2 (Temp correct) 26.9 L Arterial Blood pO2 (Temp corrected) 551.4 H Arterial Blood HCO3 11.2 L Arterial Blood Base Excess -14.7 L Arterial Blood Oxygen Saturation 99.5 H Yoshi Test ACCEPTAB Arterial Blood Gas Puncture Site Left Radial Arterial Blood Carboxyhemoglobin 0.3 Arterial Blood Methemoglobin 0.5 Blood Gas A-a O2 Differential 134.7 H Oxyhemoglobin Percent 98.7 Total Hemoglobin 10.7 L Blood Gas Temperature 37.0 Blood Gas Respiration Rate 20.0 Blood Gas Actual Respiration Rate 20 Blood Gas Modality VENT - AC FiO2 100.0 Blood Gas Tidal Volume 600.0 Blood Gas Critical Value Read Back [facility]LE Blood Gas Notified Whom Blood Gas Notified Time 08/16/2016 5:07:32 PM Test 08/16/16 20:38 08/16/16 23:36 08/17/16 00:55 08/17/16 02:42 Bedside Glucose 292 H 177 Sodium Level 127 L Potassium Level 3.7 Chloride Level 97 Carbon Dioxide Level 22 Anion Gap 12 Blood Urea Nitrogen 40 H Creatinine 3.93 H Glucose Level 234 #H Calcium Level 6.0 L Magnesium Level 1.6 L Troponin I 6.710 *H Prothrombin Time 30.6 #H Prothrombin Time Ratio 2.4 INR International Normalized Ratio 2.88 Test 08/17/16 03:40 08/17/16 06:55 08/17/16 08:23 White Blood Count 21.8 #H Red Blood Count 4.37 #L Hemoglobin 13.5 #L Hematocrit 39.0 #L Mean Corpuscular Volume 89.2 Mean Corpuscular Hemoglobin 30.9 Mean Corpuscular Hemoglobin Concent 34.6 Red Cell Distribution Width 17.5 H Platelet Count 52 #L Mean Platelet Volume 13.4 H Neutrophils % 91.4 H Lymphocytes % 3.6 L Monocytes % 3.4 Eosinophils % 0.5 Basophils % 0.2 Nucleated Red Blood Cells % 0.1 H Neutrophils # 19.9 H Lymphocytes # 0.8 Monocytes # 0.8 Eosinophils # 0.1 Basophils # 0.1 Nucleated Red Blood Cells # 0.0 Sodium Level 128 L Potassium Level 3.4 L Chloride Level 94 L Carbon Dioxide Level 24 Anion Gap 13 Blood Urea Nitrogen 41 H Creatinine 4.18 H Glucose Level 164 Calcium Level 6.1 L Troponin I 9.170 *H Blood Gas Specimen Source Blood arterial Arterial Blood Date Drawn 08/17/2016 8:05:20 AM Arterial Blood pH (Temp corrected) 7.482 H Arterial Blood pCO2 (Temp correct) 24.6 L Arterial Blood pO2 (Temp corrected) 214.4 H Arterial Blood HCO3 18.0 L Arterial Blood Base Excess -3.7 L Arterial Blood Oxygen Saturation 99.2 H Yoshi Test ACCEPTAB Arterial Blood Gas Puncture Site Right Radial Arterial Blood Carboxyhemoglobin 0.3 Arterial Blood Methemoglobin 0.5 Blood Gas A-a O2 Differential 114.4 H Oxyhemoglobin Percent 98.4 Total Hemoglobin 13.4 Blood Gas Temperature 37.0 Blood Gas Respiration Rate 20.0 Blood Gas Actual Respiration Rate 21 Blood Gas Modality VENT - AC FiO2 50.0 Blood Gas Tidal Volume 600.0 Blood Gas Inspiratory Pressure 20.0 Blood Gas Notified Whom SM Blood Gas Notified Time 08/17/2016 8:16:12 AM Bedside Glucose 126 Medications Medications Current Medications Aspirin (Halfprin) 81 mg DAILY PO Last administered on 08/16/16 08:21; Admin Dose 81 MG; Start 07/25/16 at 09:00; Status Future hold Atorvastatin Calcium (Lipitor) 10 mg QHS PO Last administered on 08/15/16 21: 40; Admin Dose 10 MG; Start 07/24/16 at 21:00 Cholecalciferol (Vitamin D) 400 units DAILY PO Last administered on 08/16/16 08:21; Admin Dose 400 UNITS; Start 07/25/16 at 09:00 Famotidine (Pepcid) 20 mg DAILY PO Last administered on 08/16/16 08:21; Admin Dose 20 MG; Start 07/25/16 at 09:00 Ferrous Sulfate (Ferrous Sulfate (Ec)) 325 mg BID PO Last administered on 08:21; Admin Dose 325 MG; Start 07/24/16 at 21:00 Acetaminophen/ Hydrocodone Bitart (Union (5/325)) 1 tab Q4H PRN PO PAIN Last administered on 08/14/16 14:11; Admin Dose 1 TAB; Start 07/24/16 at 17:00 Isoniazid (Isoniazid) 300 mg DAILY PO Last administered on 08/16/16 08:21; Admin Dose 300 MG; Start 07/24/16 at 15:30 Pyridoxine HCl (Vitamin B6) 50 mg DAILY PO Last administered on 08/16/16 08:21 ; Admin Dose 50 MG; Start 07/25/16 at 09:00 Miscellaneous Information 1 ea NOTE XX ; Start 07/24/16 at 16:00 Glucose (Glutose) 15 gm Q15M PRN PO DECREASED GLUCOSE; Start 07/24/16 at 16:00 Glucose (Glutose) 22.5 gm Q15M PRN PO DECREASED GLUCOSE; Start 07/24/16 at 16: 00 Dextrose (D50w Syringe) 25 ml Q15M PRN IV DECREASED GLUCOSE; Start 07/24/16 at 16:00 Dextrose (D50w Syringe) 50 ml Q15M PRN IV DECREASED GLUCOSE; Start 07/24/16 at 16:00 Glucagon (Glucagen) 1 mg Q15M PRN IM DECREASED GLUCOSE; Start 07/24/16 at 16:00 Glucose (Glutose) 15 gm Q15M PRN BUCCAL DECREASED GLUCOSE; Start 07/24/16 at 16 :00 Ondansetron HCl (Zofran Inj) 4 mg Q4 PRN IV nausea Last administered on 21:40; Admin Dose 4 MG; Start 07/24/16 at 17:00 Metoclopramide HCl (Reglan) 5 mg Q4H PRN IV NAUSEA Last administered on 16:40; Admin Dose 5 MG; Start 07/24/16 at 22:30 Diagnostic Test (Pha) (Accu-Chek) 1 ea 02 XX Last administered on 08/17/16 02: 00; Admin Dose 1 EA; Start 07/26/16 at 12:00 Pantoprazole (Protonix Tab) 40 mg DAILY@06 PO Last administered on 08/16/16 06 :05; Admin Dose 40 MG; Start 07/28/16 at 06:00 Hydralazine HCl (Apresoline) 20 mg Q4 PRN IV ELEVATED BLOOD PRESSURE Last administered on 08/04/16 16:35; Admin Dose 20 MG; Start 07/28/16 at 02:00 Polyethylene Glycol (Miralax) 17 gm DAILY PRN GTB CONSTIPATION Last administered on 07/28/16 20:22; Admin Dose 17 GM; Start 07/28/16 at 19:30 Lorazepam (Ativan) 1 mg Q4H PRN IV anxiety Last administered on 07/30/16 20:48 ; Admin Dose 1 MG; Start 07/29/16 at 06:30 Ethambutol HCl (Myambutol) 900 mg TuThSa@20 PO Last administered on 08/13/16 21:41; Admin Dose 900 MG; Start 07/31/16 at 20:00 Pyrazinamide (Pyrazinamide) 1,250 mg TuThSa@20 PO Last administered on 21:44; Admin Dose 1,250 MG; Start 07/31/16 at 20:00 Hydromorphone HCl (Dilaudid) 1 mg Q2H PRN IV pain Last administered on 13:56; Admin Dose 1 MG; Start 08/02/16 at 19:00 Zolpidem Tartrate (Ambien) 5 mg HS PRN PO INSOMNIA Last administered on 22:40; Admin Dose 5 MG; Start 08/08/16 at 21:00 Benazepril HCl (Lotensin) 10 mg BID PO ; Start 08/09/16 at 09:00; Status Future Hold Metoprolol Tartrate 25 mg 25 mg BID GTB Last administered on 08/14/16 20:42; Admin Dose 25 MG; Start 08/09/16 at 21:00 Caspofungin 50 mg/ Sodium Chloride 250 ml @ 250 mls/hr Q24H IVPB Last administered on 08/16/16 17:27; Admin Dose 250 MLS/HR; Start 08/10/16 at 17:00 Sodium Chloride 1,000 ml @ 50 mls/hr Q20H IV Last administered on 08/14/16 17 :48; Admin Dose 50 MLS/HR; Start 08/09/16 at 17:30; Status Future Hold Dopamine HCl/ Dextrose (D5W) 250 ml @ 1.71 mls/hr TITRATE IV Last administered on 08/11/16 15:07; Admin Dose 11.43 MLS/HR; Start 08/10/16 at 15:30 Acetaminophen (Tylenol Tab) 650 mg Q6H PRN PO PAIN AND OR ELEVATED TEMP Last administered on 08/12/16 00:54; Admin Dose 650 MG; Start 08/10/16 at 16:30 Clopidogrel Bisulfate 75 mg 75 mg DAILY PO Last administered on 08/16/16 08:21 ; Admin Dose 75 MG; Start 08/11/16 at 12:00 Phenylephrine HCl 160 mg/Dextrose 500 ml @ 18.75 mls/ hr TITRATE IV Last administered on 08/17/16 05:43; Admin Dose 46.87 MLS/HR; Start 08/12/16 at 06: 00 Meropenem (Merrem 500 Mg/ 100 ml (Pmx)) 100 ml @ 200 mls/hr Q24H IVPB Last administered on 08/17/16 09:12; Admin Dose 200 MLS/HR; Start 08/13/16 at 09:00 Epoetin Tutu (Epogen (Esrd)) 3,000 units TuThSa@17 SC Last administered on 08/16 17:25; Admin Dose 3,000 UNITS; Start 08/14/16 at 17:00 Epoetin Tutu (Epogen (Esrd)) 2,000 units TuThSa@17 SC Last administered on 08/16 17:26; Admin Dose 2,000 UNITS; Start 08/14/16 at 17:00 Triglycerides (Mct Oil (Ped)) 10 ml Q6 PO Last administered on 08/16/16 12:52 ; Admin Dose 10 ML; Start 08/14/16 at 12:30 Levofloxacin (Levaquin) 750 mg TuThSa PO Last administered on 08/14/16 20:42; Admin Dose 750 MG; Start 08/14/16 at 20:00 Calcium Carbonate (Tums) 500 mg TID PO Last administered on 08/16/16 12:53; Admin Dose 500 MG; Start 08/15/16 at 09:00 Insulin Glargine (Lantus) 15 unit DAILY SC Last administered on 08/17/16 09:14 ; Admin Dose 15 UNIT; Start 08/16/16 at 09:00 Midodrine 5 mg 5 mg BID@,17 PO Last administered on 08/16/16 09:39; Admin Dose 5 MG; Start 08/15/16 at 17:00 Vasopressin 60 unit/Dextrose 60 ml @ 1.2 mls/hr Q12H IV Last administered on 23:49; Admin Dose 2.4 MLS/HR; Start 08/16/16 at 09:30 Norepinephrine 32 mg/Dextrose 250 ml @ 0.46 mls/hr TITRATE IV Last administered on 08/16/16 18:22; Admin Dose 14.06 MLS/HR; Start 08/16/16 at 13: 30 Epinephrine 4 mg/ Sodium Chloride 250 ml @ 3.75 mls/hr TITRATE IV ; Start 08/16 at 14:00 Sodium Bicarbonate 100 meq/Dextrose 1,100 ml @ 150 mls/hr Q7H20M IV Last administered on 08/17/16 04:05; Admin Dose 150 MLS/HR; Start 08/16/16 at 18:30 Vancomycin HCl 250 ml @ 125 mls/hr Q96H IVPB ; Start 08/18/16 at 16:00 Amiodarone HCl 900 mg/Dextrose 500 ml @ 0 mls/hr Q0M IV Last administered on 01:06; Admin Dose 33.4 MLS/HR; Start 08/17/16 at 00:30; Stop 08/18/16 at 00:29 Albumin Human 100 ml @ 250 mls/hr Q24M IV ; Start 08/17/16 at 11:00; Stop 08/17 at 14:59 Potassium Chloride 50 ml @ 25 mls/hr ONCE ONCE IVPB ; Start 08/17/16 at 11:30; Stop 08/17/16 at 13:29 Calcium Gluconate/ Sodium Chloride (Ca Gluc/NS) 110 ml @ 110 mls/hr ONCE ONCE IVPB ; Start 08/17/16 at 12:30; Stop 08/17/16 at 13:29 HELEN SHARP Aug 17, 2016 11:25
[2016-08-17] MEDS ORDERED: POTASSIUM CHLORIDE 50 ML IVPB ONE (11:30)
[2016-08-17] MEDS: ALBUMIN HUMAN 25% 100 ML IV SCH ×10 (11:37→16:56)
--- NOTE | 2016-08-17 11:56 | CONS ---
Date/Time of Note Date/Time of Note DATE: 08/17/16 TIME: 11:52 Assessment/Plan Assessment/Plan Additional Assessment/Plan Ventilator settings are AC of 20, tidal volume of 600, PEEP of 0, 40% FiO2. Next Patient is on amiodarone drip 0.5 mg/min, phenylephrine drip at 10 mics per minute, Levophed 20 mics per minute. Vasopressin 0.04 U/min. Assessment recommendations; 1. Patient admitted for recurrent right pleural effusion status post VATS procedure however patient still having copious discharge from the right side chest tube. 2. Underlying cardia myopathy. 3. Prior history of coronary artery disease status post bypass surgery. 4. Chronic renal failure, on hemodialysis. 5. Severe hypotension. 6. Status post CPR however patient has excellent mental status. 7. Clinically there is no suspicion of any pulmonary tuberculosis. Continue current supportive care. Decrease tidal volume to 500. Patient's prognosis is poor. Consider stopping TB medications. Consultation Date/Type/Reason Admit Date/Time Jul 24, 2016 at 12:53 Initial Consult Date 07/25/16 Type of Consultation: Pulmonary/critical care Referring Provider: EVA COX MD 24 HR Interval Summary Free Text/Dictation Patient condition is taken a turn for the worse. Patient had a cardiac arrest yesterday had to be intubated by the ER physician. However patient now is completely awake alert but is requiring high-dose pressor support for blood pressure maintenance. General exam; elderly male, orally intubated awake and alert. Currently in no distress. Exam/Review of Systems Vital Signs Vitals Vital Signs Date Time Temp Pulse Resp B/P Pulse Ox O2 Delivery O2 Flow Rate FiO2 08/17/16 11:10 152 24 40 08/17/16 10:30 122/95 99 08/17/16 10:10 Mechanical Ventilator 08/17/16 08:00 97.3 08/16/16 11:00 2.0 Intake and Output 08/16/16 08/16/16 08/17/16 15:00 23:00 07:00 Intake Total 2519.6 ml 1789.84 ml 2215.74 ml Output Total 1100 ml 550 ml 1100 ml Balance 1419.6 ml 1239.84 ml 1115.74 ml Exam HEENT exam is; supple neck, positive JVD. No lymphadenopathy. Midline trachea. Pupils are midsize reactive to light. Orally intubated. No thyroid megaly. No neck bruits. Chest exam; diminished breath sounds bilaterally. Right-sided chest tube in place. S1-S2 audible, no murmurs. Regular rhythm. There is a well-healed sternal scar. Abdomen examination; soft, nontender. No organomegaly. Bowel sounds audible. Extremity exam is; no peripheral edema. ENGINEERING INTERN examination; patient is awake and follows simple commands moves all 4 extremities. Results Result Diagram: 08/17/16 0340 08/17/16 0340 Results 24 hrs Laboratory Tests Test 08/16/16 16:58 08/16/16 17:00 08/16/16 17:32 08/16/16 20:38 White Blood Count 30.7 #H Red Blood Count 2.88 L Hemoglobin 9.6 L Hematocrit 29.4 L Mean Corpuscular Volume 102.1 H Mean Corpuscular Hemoglobin 33.3 H Mean Corpuscular Hemoglobin Concent 32.7 Red Cell Distribution Width 18.2 H Platelet Count 98 L Mean Platelet Volume 12.0 H Neutrophils % 87.0 H Band Neutrophils % 5.0 Lymphocytes % 2.0 L Monocytes % 6.0 Neutrophils # 26.7 H Lymphocytes # 0.6 L Monocytes # 1.8 H Platelet Estimate PLT APPEAR DECREASED Macrocytosis 1+ Sodium Level 129 L Potassium Level 3.7 Chloride Level 101 Carbon Dioxide Level 16 #L Anion Gap 16 # Blood Urea Nitrogen 36 H Creatinine 4.02 #H Glucose Level 372 H Calcium Level 6.2 L Total Bilirubin 2.0 H Direct Bilirubin 1.40 #H Indirect Bilirubin 0.6 Aspartate Amino Transf (AST/SGOT) 395 #H Alanine Aminotransferase (ALT/SGPT) 37 Alkaline Phosphatase 128 H Troponin I 2.030 *H Total Protein 3.7 L Albumin 1.8 L Globulin 1.90 Albumin/Globulin Ratio 0.94 Blood Gas Specimen Source Blood arterial Arterial Blood Date Drawn 08/16/2016 4:50:34 PM Arterial Blood pH (Temp corrected) 7.238 *L Arterial Blood pCO2 (Temp correct) 26.9 L Arterial Blood pO2 (Temp corrected) 551.4 H Arterial Blood HCO3 11.2 L Arterial Blood Base Excess -14.7 L Arterial Blood Oxygen Saturation 99.5 H Yoshi Test ACCEPTAB Arterial Blood Gas Puncture Site Left Radial Arterial Blood Carboxyhemoglobin 0.3 Arterial Blood Methemoglobin 0.5 Blood Gas A-a O2 Differential 134.7 H Oxyhemoglobin Percent 98.7 Total Hemoglobin 10.7 L Blood Gas Temperature 37.0 Blood Gas Respiration Rate 20.0 Blood Gas Actual Respiration Rate 20 Blood Gas Modality VENT - AC FiO2 100.0 Blood Gas Tidal Volume 600.0 Blood Gas Critical Value Read Back BAIRON COLE Blood Gas Notified Whom Blood Gas Notified Time 08/16/2016 5:07:32 PM Bedside Glucose 352 H 292 H Test 08/16/16 23:36 08/17/16 00:55 08/17/16 02:42 08/17/16 03:40 Sodium Level 127 L 128 L Potassium Level 3.7 3.4 L Chloride Level 97 94 L Carbon Dioxide Level 22 24 Anion Gap 12 13 Blood Urea Nitrogen 40 H 41 H Creatinine 3.93 H 4.18 H Glucose Level 234 #H 164 Calcium Level 6.0 L 6.1 L Magnesium Level 1.6 L Troponin I 6.710 *H 9.170 *H Prothrombin Time 30.6 #H Prothrombin Time Ratio 2.4 INR International Normalized Ratio 2.88 Bedside Glucose 177 White Blood Count 21.8 #H Red Blood Count 4.37 #L Hemoglobin 13.5 #L Hematocrit 39.0 #L Mean Corpuscular Volume 89.2 Mean Corpuscular Hemoglobin 30.9 Mean Corpuscular Hemoglobin Concent 34.6 Red Cell Distribution Width 17.5 H Platelet Count 52 #L Mean Platelet Volume 13.4 H Neutrophils % 91.4 H Lymphocytes % 3.6 L Monocytes % 3.4 Eosinophils % 0.5 Basophils % 0.2 Nucleated Red Blood Cells % 0.1 H Neutrophils # 19.9 H Lymphocytes # 0.8 Monocytes # 0.8 Eosinophils # 0.1 Basophils # 0.1 Nucleated Red Blood Cells # 0.0 Test 08/17/16 06:55 08/17/16 08:23 Blood Gas Specimen Source Blood arterial Arterial Blood Date Drawn 08/17/2016 8:05:20 AM Arterial Blood pH (Temp corrected) 7.482 H Arterial Blood pCO2 (Temp correct) 24.6 L Arterial Blood pO2 (Temp corrected) 214.4 H Arterial Blood HCO3 18.0 L Arterial Blood Base Excess -3.7 L Arterial Blood Oxygen Saturation 99.2 H Yoshi Test ACCEPTAB Arterial Blood Gas Puncture Site Right Radial Arterial Blood Carboxyhemoglobin 0.3 Arterial Blood Methemoglobin 0.5 Blood Gas A-a O2 Differential 114.4 H Oxyhemoglobin Percent 98.4 Total Hemoglobin 13.4 Blood Gas Temperature 37.0 Blood Gas Respiration Rate 20.0 Blood Gas Actual Respiration Rate 21 Blood Gas Modality VENT - AC FiO2 50.0 Blood Gas Tidal Volume 600.0 Blood Gas Inspiratory Pressure 20.0 Blood Gas Notified Whom Blood Gas Notified Time 08/17/2016 8:16:12 AM Bedside Glucose 126 Medications Medications Current Medications Aspirin (Halfprin) 81 mg DAILY PO Last administered on 08/16/16 08:21; Admin Dose 81 MG; Start 07/25/16 at 09:00; Status Future hold Atorvastatin Calcium (Lipitor) 10 mg QHS PO Last administered on 08/15/16 21: 40; Admin Dose 10 MG; Start 07/24/16 at 21:00 Cholecalciferol (Vitamin D) 400 units DAILY PO Last administered on 08/16/16 08:21; Admin Dose 400 UNITS; Start 07/25/16 at 09:00 Famotidine (Pepcid) 20 mg DAILY PO Last administered on 08/16/16 08:21; Admin Dose 20 MG; Start 07/25/16 at 09:00 Ferrous Sulfate (Ferrous Sulfate (Ec)) 325 mg BID PO Last administered on 08:21; Admin Dose 325 MG; Start 07/24/16 at 21:00 Acetaminophen/ Hydrocodone Bitart ([place] (5/325)) 1 tab Q4H PRN PO PAIN Last administered on 08/14/16 14:11; Admin Dose 1 TAB; Start 07/24/16 at 17:00 Isoniazid (Isoniazid) 300 mg DAILY PO Last administered on 08/16/16 08:21; Admin Dose 300 MG; Start 07/24/16 at 15:30 Pyridoxine HCl (Vitamin B6) 50 mg DAILY PO Last administered on 08/16/16 08:21 ; Admin Dose 50 MG; Start 07/25/16 at 09:00 Miscellaneous Information 1 ea NOTE XX ; Start 07/24/16 at 16:00 Glucose (Glutose) 15 gm Q15M PRN PO DECREASED GLUCOSE; Start 07/24/16 at 16:00 Glucose (Glutose) 22.5 gm Q15M PRN PO DECREASED GLUCOSE; Start 07/24/16 at 16: 00 Dextrose (D50w Syringe) 25 ml Q15M PRN IV DECREASED GLUCOSE; Start 07/24/16 at 16:00 Dextrose (D50w Syringe) 50 ml Q15M PRN IV DECREASED GLUCOSE; Start 07/24/16 at 16:00 Glucagon (Glucagen) 1 mg Q15M PRN IM DECREASED GLUCOSE; Start 07/24/16 at 16:00 Glucose (Glutose) 15 gm Q15M PRN BUCCAL DECREASED GLUCOSE; Start 07/24/16 at 16 :00 Ondansetron HCl (Zofran Inj) 4 mg Q4 PRN IV nausea Last administered on 21:40; Admin Dose 4 MG; Start 07/24/16 at 17:00 Metoclopramide HCl (Reglan) 5 mg Q4H PRN IV NAUSEA Last administered on 16:40; Admin Dose 5 MG; Start 07/24/16 at 22:30 Diagnostic Test (Pha) (Accu-Chek) 1 ea 02 XX Last administered on 08/17/16 02: 00; Admin Dose 1 EA; Start 07/26/16 at 12:00 Pantoprazole (Protonix Tab) 40 mg DAILY@06 PO Last administered on 08/16/16 06 :05; Admin Dose 40 MG; Start 07/28/16 at 06:00 Hydralazine HCl (Apresoline) 20 mg Q4 PRN IV ELEVATED BLOOD PRESSURE Last administered on 08/04/16 16:35; Admin Dose 20 MG; Start 07/28/16 at 02:00 Polyethylene Glycol (Miralax) 17 gm DAILY PRN GTB CONSTIPATION Last administered on 07/28/16 20:22; Admin Dose 17 GM; Start 07/28/16 at 19:30 Lorazepam (Ativan) 1 mg Q4H PRN IV anxiety Last administered on 07/30/16 20:48 ; Admin Dose 1 MG; Start 07/29/16 at 06:30 Ethambutol HCl (Myambutol) 900 mg TuThSa@20 PO Last administered on 08/13/16 21:41; Admin Dose 900 MG; Start 07/31/16 at 20:00 Pyrazinamide (Pyrazinamide) 1,250 mg TuThSa@20 PO Last administered on 21:44; Admin Dose 1,250 MG; Start 07/31/16 at 20:00 Hydromorphone HCl (Dilaudid) 1 mg Q2H PRN IV pain Last administered on 13:56; Admin Dose 1 MG; Start 08/02/16 at 19:00 Zolpidem Tartrate (Ambien) 5 mg HS PRN PO INSOMNIA Last administered on 22:40; Admin Dose 5 MG; Start 08/08/16 at 21:00 Benazepril HCl (Lotensin) 10 mg BID PO ; Start 08/09/16 at 09:00; Status Future Hold Metoprolol Tartrate 25 mg 25 mg BID GTB Last administered on 08/14/16 20:42; Admin Dose 25 MG; Start 08/09/16 at 21:00 Caspofungin 50 mg/ Sodium Chloride 250 ml @ 250 mls/hr Q24H IVPB Last administered on 08/16/16 17:27; Admin Dose 250 MLS/HR; Start 08/10/16 at 17:00 Sodium Chloride 1,000 ml @ 50 mls/hr Q20H IV Last administered on 08/14/16 17 :48; Admin Dose 50 MLS/HR; Start 08/09/16 at 17:30; Status Future Hold Dopamine HCl/ Dextrose (D5W) 250 ml @ 1.71 mls/hr TITRATE IV Last administered on 08/11/16 15:07; Admin Dose 11.43 MLS/HR; Start 08/10/16 at 15:30 Acetaminophen (Tylenol Tab) 650 mg Q6H PRN PO PAIN AND OR ELEVATED TEMP Last administered on 08/12/16 00:54; Admin Dose 650 MG; Start 08/10/16 at 16:30 Clopidogrel Bisulfate 75 mg 75 mg DAILY PO Last administered on 08/16/16 08:21 ; Admin Dose 75 MG; Start 08/11/16 at 12:00 Phenylephrine HCl 160 mg/Dextrose 500 ml @ 18.75 mls/ hr TITRATE IV Last administered on 08/17/16 05:43; Admin Dose 46.87 MLS/HR; Start 08/12/16 at 06: 00 Meropenem (Merrem 500 Mg/ 100 ml (Pmx)) 100 ml @ 200 mls/hr Q24H IVPB Last administered on 08/17/16 09:12; Admin Dose 200 MLS/HR; Start 08/13/16 at 09:00 Epoetin Tutu (Epogen (Esrd)) 3,000 units TuThSa@17 SC Last administered on 08/16 17:25; Admin Dose 3,000 UNITS; Start 08/14/16 at 17:00 Epoetin Tutu (Epogen (Esrd)) 2,000 units TuThSa@17 SC Last administered on 08/16 17:26; Admin Dose 2,000 UNITS; Start 08/14/16 at 17:00 Triglycerides (Mct Oil (Ped)) 10 ml Q6 PO Last administered on 08/16/16 12:52 ; Admin Dose 10 ML; Start 08/14/16 at 12:30 Levofloxacin (Levaquin) 750 mg TuThSa PO Last administered on 08/14/16 20:42; Admin Dose 750 MG; Start 08/14/16 at 20:00 Calcium Carbonate (Tums) 500 mg TID PO Last administered on 08/16/16 12:53; Admin Dose 500 MG; Start 08/15/16 at 09:00 Insulin Glargine (Lantus) 15 unit DAILY SC Last administered on 08/17/16 09:14 ; Admin Dose 15 UNIT; Start 08/16/16 at 09:00 Midodrine 5 mg 5 mg BID@09,17 PO Last administered on 08/16/16 09:39; Admin Dose 5 MG; Start 08/15/16 at 17:00 Vasopressin 60 unit/Dextrose 60 ml @ 1.2 mls/hr Q12H IV Last administered on 23:49; Admin Dose 2.4 MLS/HR; Start 08/16/16 at 09:30 Norepinephrine 32 mg/Dextrose 250 ml @ 0.46 mls/hr TITRATE IV Last administered on 08/16/16 18:22; Admin Dose 14.06 MLS/HR; Start 08/16/16 at 13: 30 Epinephrine 4 mg/ Sodium Chloride 250 ml @ 3.75 mls/hr TITRATE IV ; Start 08/16 at 14:00 Sodium Bicarbonate 100 meq/Dextrose 1,100 ml @ 150 mls/hr Q7H20M IV Last administered on 08/17/16 11:35; Admin Dose 150 MLS/HR; Start 08/16/16 at 18:30 Vancomycin HCl 250 ml @ 125 mls/hr Q96H IVPB ; Start 08/18/16 at 16:00 Amiodarone HCl 900 mg/Dextrose 500 ml @ 0 mls/hr Q0M IV Last administered on 01:06; Admin Dose 33.4 MLS/HR; Start 08/17/16 at 00:30; Stop 08/18/16 at 00:29 Albumin Human 100 ml @ 250 mls/hr Q24M IV Last administered on 08/17/16 11:37 ; Admin Dose 250 MLS/HR; Start 08/17/16 at 11:00; Stop 08/17/16 at 14:59 Potassium Chloride 50 ml @ 25 mls/hr ONCE ONCE IVPB Last administered on 11:36; Admin Dose 25 MLS/HR; Start 08/17/16 at 11:30; Stop 08/17/16 at 13: 29 Calcium Gluconate/ Sodium Chloride (Ca Gluc/NS) 110 ml @ 110 mls/hr ONCE ONCE IVPB ; Start 08/17/16 at 12:30; Stop 08/17/16 at 13:29 BOONE POLO Aug 17, 2016 11:56
--- NOTE | 2016-08-17 12:02 | RADRPT ---
Echocardiogram Report Patient Name: VIOLET BANKS Gender: Male Date: 1955 Study Date: 17-Aug-2016 [employer] Supervisor: NITZA Location: I Ref. Physician: GARY PAGE Quality: Technically Difficult Study Procedures: Transthoracic echocardiogram with 2D, M-Mode, and Doppler examination. Indications: Post-intubation. 2D/M Mode Doppler Measurement Value Normal Ranges Measurement Value Normal Ranges AoR Diam MM 2.7 cm AV Peak Jesse 0.8 m/sec LVIDd 2D 3.1 3.5 - 5.6 cm AV Peak PG 2.8 mmHg LVIDs 2D 2.3 2.1 - 4.1 cm LVOT Peak Jesse 0.5 m/sec LVPWd 2D 1.4 0.6 - 1.1 cm LVOT Peak PG 1.0 mmHg IVSd 2D 1.3 0.6 - 1.1 cm TR Peak Jesse 2.9 m/sec EDV 2D 36.8 cm3 TR Peak PG 33.3 mmHg ESV 2D 12.7 cm3 PV Peak Jesse 0.8 m/sec LA Dimen 2D 2.1 2.3 - 4.0 cm PV Peak PG 2.0 mmHg RVSP 36.3 mmHg Findings Left Ventricle: Normal left ventricular cavity size. Mild concentric left ventricular hypertrophy. Unable to estimate left ventricular function secondary to poor acoustic windows. Ejection fraction is visually estimated at %. Tissue Doppler/Mitral Doppler indices are indeterminate in this study due to the presence of a tachy rhythm. Right Ventricle: Normal right ventricular size. Linear artifact in right ventricle suggestive of catheter, pacer lead, or ICD lead. Left Atrium: The left atrium is small than normal limit. Right Atrium: The right atrium is normal in size. Atrial Septum: Not well visualized. Mitral Valve: Normal appearance of the mitral valve. No mitral valve regurgitation is seen. Aortic Valve: No significant aortic stenosis or insufficiency. Normal trileaflet aortic valve structure. Tricuspid Valve: Normal appearance of the tricuspid valve. Estimated peak PA systolic pressure 36 mmHg. There is mild tricuspid regurgitation. Pulmonic Valve: Normal pulmonic valve appearance. There is trace pulmonic regurgitation. Pericardium: Normal pericardium with no significant pericardial effusion. Aorta: Normal aortic root with decreased excursion. IVC: The IVC is not well visualized. Pulmonary Artery: Normal pulmonary artery size. Conclusions 1.Normal left ventricular cavity size. Mild concentric left ventricular hypertrophy. Unable to estimate left ventricular function secondary to tachyarryhthymias and poor acoustic windows. Tissue Doppler/Mitral Doppler indices are indeterminate in this study due to the presence of a tachy rhythm. 2.Normal right ventricular size. Linear artifact in right ventricle suggestive of catheter, pacer lead, or ICD lead. 3.No significant aortic stenosis or insufficiency. Normal trileaflet aortic valve structure. 4.Normal appearance of the mitral valve. No mitral valve regurgitation is seen. 5.Normal appearance of the tricuspid valve. Estimated peak PA systolic pressure 36 mmHg. There is mild tricuspid regurgitation. Mild Pulmonary Hypertension. 6.Normal pericardium with no significant pericardial effusion. Electronically Signed By: Gary Page 17-Aug-2016 12:01:00 -0700 Patient Name: VIOLET BANKS Study Date: 17-Aug-2016 [id number]
[2016-08-17] MEDS ORDERED: CALCIUM GLUCONATE 10% 1 GM in SOD CHLORIDE 0.9% 100 ML IVPB ONE (12:30)
--- NOTE | 2016-08-17 12:43 | CONS ---
Date/Time of Note Date/Time of Note DATE: 08/17/16 TIME: 12:36 Assessment/Plan Assessment/Plan Additional Assessment/Plan CAD with PTCA and stent placement to left main and left anterior descending in 2014. History of coronary artery bypass graft surgery. End-stage renal disease on hemodialysis. Tuberculosis, on therapy. Hypertension Diabetes mellitus. Dyslipidemia. Empyema/cavitary lesions S/P VATS and Pleurodesis He was coded and CPR done and resuscitated and intubated for airway support Troponin is elevated He is actively bleeding from rectum Clinically unstable requiring 3 vasopressors Continue Ventilatory support Continue Phenyl and Norepinephrine and Vasopressin Continue Amiodarone Continue HD as scheduled Continue anti TB regimen as scheduled Continue Insulin Consultation Date/Type/Reason Admit Date/Time Jul 24, 2016 at 12:53 Initial Consult Date 07/25/16 Type of Consultation: Pulmonary/critical care Referring Provider: EVA COX MD Exam/Review of Systems Vital Signs Vitals Vital Signs Date Time Temp Pulse Resp B/P Pulse Ox O2 Delivery O2 Flow Rate FiO2 08/17/16 12:03 97.1 146 18 89/66 Mechanical Ventilator 08/17/16 11:15 100 08/17/16 11:10 40 08/16/16 11:00 2.0 Intake and Output 08/16/16 08/16/16 08/17/16 14:59 22:59 06:59 Intake Total 2452.2 ml 1515.13 ml 2499.53 ml Output Total 900 ml 750 ml 1100 ml Balance 1552.2 ml 765.13 ml 1399.53 ml Exam Intubated, non verbal CVS Tachycardic Chest Mechanical Breath sounds heard bilaterally Abdomen Decreased bowel sounds Ext Trace pedal edema Results Result Diagram: 08/17/16 0340 08/17/16 0340 Results 24 hrs Laboratory Tests Test 08/16/16 16:58 08/16/16 17:00 08/16/16 17:32 08/16/16 20:38 White Blood Count 30.7 #H Red Blood Count 2.88 L Hemoglobin 9.6 L Hematocrit 29.4 L Mean Corpuscular Volume 102.1 H Mean Corpuscular Hemoglobin 33.3 H Mean Corpuscular Hemoglobin Concent 32.7 Red Cell Distribution Width 18.2 H Platelet Count 98 L Mean Platelet Volume 12.0 H Neutrophils % 87.0 H Band Neutrophils % 5.0 Lymphocytes % 2.0 L Monocytes % 6.0 Neutrophils # 26.7 H Lymphocytes # 0.6 L Monocytes # 1.8 H Platelet Estimate PLT APPEAR DECREASED Macrocytosis 1+ Sodium Level 129 L Potassium Level 3.7 Chloride Level 101 Carbon Dioxide Level 16 #L Anion Gap 16 # Blood Urea Nitrogen 36 H Creatinine 4.02 #H Glucose Level 372 H Calcium Level 6.2 L Total Bilirubin 2.0 H Direct Bilirubin 1.40 #H Indirect Bilirubin 0.6 Aspartate Amino Transf (AST/SGOT) 395 #H Alanine Aminotransferase (ALT/SGPT) 37 Alkaline Phosphatase 128 H Troponin I 2.030 *H Total Protein 3.7 L Albumin 1.8 L Globulin 1.90 Albumin/Globulin Ratio 0.94 Blood Gas Specimen Source Blood arterial Arterial Blood Date Drawn 08/16/2016 4:50:34 PM Arterial Blood pH (Temp corrected) 7.238 *L Arterial Blood pCO2 (Temp correct) 26.9 L Arterial Blood pO2 (Temp corrected) 551.4 H Arterial Blood HCO3 11.2 L Arterial Blood Base Excess -14.7 L Arterial Blood Oxygen Saturation 99.5 H Yoshi Test ACCEPTAB Arterial Blood Gas Puncture Site Left Radial Arterial Blood Carboxyhemoglobin 0.3 Arterial Blood Methemoglobin 0.5 Blood Gas A-a O2 Differential 134.7 H Oxyhemoglobin Percent 98.7 Total Hemoglobin 10.7 L Blood Gas Temperature 37.0 Blood Gas Respiration Rate 20.0 Blood Gas Actual Respiration Rate 20 Blood Gas Modality VENT - AC FiO2 100.0 Blood Gas Tidal Volume 600.0 Blood Gas Critical Value Read Back BAIRON COLE Blood Gas Notified Whom Blood Gas Notified Time 08/16/2016 5:07:32 PM Bedside Glucose 352 H 292 H Test 08/16/16 23:36 08/17/16 00:55 08/17/16 02:42 08/17/16 03:40 Sodium Level 127 L 128 L Potassium Level 3.7 3.4 L Chloride Level 97 94 L Carbon Dioxide Level 22 24 Anion Gap 12 13 Blood Urea Nitrogen 40 H 41 H Creatinine 3.93 H 4.18 H Glucose Level 234 #H 164 Calcium Level 6.0 L 6.1 L Magnesium Level 1.6 L Troponin I 6.710 *H 9.170 *H Prothrombin Time 30.6 #H Prothrombin Time Ratio 2.4 INR International Normalized Ratio 2.88 Bedside Glucose 177 White Blood Count 21.8 #H Red Blood Count 4.37 #L Hemoglobin 13.5 #L Hematocrit 39.0 #L Mean Corpuscular Volume 89.2 Mean Corpuscular Hemoglobin 30.9 Mean Corpuscular Hemoglobin Concent 34.6 Red Cell Distribution Width 17.5 H Platelet Count 52 #L Mean Platelet Volume 13.4 H Neutrophils % 91.4 H Lymphocytes % 3.6 L Monocytes % 3.4 Eosinophils % 0.5 Basophils % 0.2 Nucleated Red Blood Cells % 0.1 H Neutrophils # 19.9 H Lymphocytes # 0.8 Monocytes # 0.8 Eosinophils # 0.1 Basophils # 0.1 Nucleated Red Blood Cells # 0.0 Test 08/17/16 06:55 08/17/16 08:23 Blood Gas Specimen Source Blood arterial Arterial Blood Date Drawn 08/17/2016 8:05:20 AM Arterial Blood pH (Temp corrected) 7.482 H Arterial Blood pCO2 (Temp correct) 24.6 L Arterial Blood pO2 (Temp corrected) 214.4 H Arterial Blood HCO3 18.0 L Arterial Blood Base Excess -3.7 L Arterial Blood Oxygen Saturation 99.2 H Yoshi Test ACCEPTAB Arterial Blood Gas Puncture Site Right Radial Arterial Blood Carboxyhemoglobin 0.3 Arterial Blood Methemoglobin 0.5 Blood Gas A-a O2 Differential 114.4 H Oxyhemoglobin Percent 98.4 Total Hemoglobin 13.4 Blood Gas Temperature 37.0 Blood Gas Respiration Rate 20.0 Blood Gas Actual Respiration Rate 21 Blood Gas Modality VENT - AC FiO2 50.0 Blood Gas Tidal Volume 600.0 Blood Gas Inspiratory Pressure 20.0 Blood Gas Notified Whom Blood Gas Notified Time 08/17/2016 8:16:12 AM Bedside Glucose 126 Medications Medications Current Medications Aspirin (Halfprin) 81 mg DAILY PO Last administered on 08/16/16 08:21; Admin Dose 81 MG; Start 07/25/16 at 09:00; Status Future hold Atorvastatin Calcium (Lipitor) 10 mg QHS PO Last administered on 08/15/16 21: 40; Admin Dose 10 MG; Start 07/24/16 at 21:00 Cholecalciferol (Vitamin D) 400 units DAILY PO Last administered on 08/16/16 08:21; Admin Dose 400 UNITS; Start 07/25/16 at 09:00 Famotidine (Pepcid) 20 mg DAILY PO Last administered on 08/16/16 08:21; Admin Dose 20 MG; Start 07/25/16 at 09:00 Ferrous Sulfate (Ferrous Sulfate (Ec)) 325 mg BID PO Last administered on 08:21; Admin Dose 325 MG; Start 07/24/16 at 21:00 Acetaminophen/ Hydrocodone Bitart ([place] (5/325)) 1 tab Q4H PRN PO PAIN Last administered on 08/14/16 14:11; Admin Dose 1 TAB; Start 07/24/16 at 17:00 Isoniazid (Isoniazid) 300 mg DAILY PO Last administered on 08/16/16 08:21; Admin Dose 300 MG; Start 07/24/16 at 15:30 Pyridoxine HCl (Vitamin B6) 50 mg DAILY PO Last administered on 08/16/16 08:21 ; Admin Dose 50 MG; Start 07/25/16 at 09:00 Miscellaneous Information 1 ea NOTE XX ; Start 07/24/16 at 16:00 Glucose (Glutose) 15 gm Q15M PRN PO DECREASED GLUCOSE; Start 07/24/16 at 16:00 Glucose (Glutose) 22.5 gm Q15M PRN PO DECREASED GLUCOSE; Start 07/24/16 at 16: 00 Dextrose (D50w Syringe) 25 ml Q15M PRN IV DECREASED GLUCOSE; Start 07/24/16 at 16:00 Dextrose (D50w Syringe) 50 ml Q15M PRN IV DECREASED GLUCOSE; Start 07/24/16 at 16:00 Glucagon (Glucagen) 1 mg Q15M PRN IM DECREASED GLUCOSE; Start 07/24/16 at 16:00 Glucose (Glutose) 15 gm Q15M PRN BUCCAL DECREASED GLUCOSE; Start 07/24/16 at 16 :00 Ondansetron HCl (Zofran Inj) 4 mg Q4 PRN IV nausea Last administered on 21:40; Admin Dose 4 MG; Start 07/24/16 at 17:00 Metoclopramide HCl (Reglan) 5 mg Q4H PRN IV NAUSEA Last administered on 16:40; Admin Dose 5 MG; Start 07/24/16 at 22:30 Diagnostic Test (Pha) (Accu-Chek) 1 ea 02 XX Last administered on 08/17/16 02: 00; Admin Dose 1 EA; Start 07/26/16 at 12:00 Pantoprazole (Protonix Tab) 40 mg DAILY@06 PO Last administered on 08/16/16 06 :05; Admin Dose 40 MG; Start 07/28/16 at 06:00 Hydralazine HCl (Apresoline) 20 mg Q4 PRN IV ELEVATED BLOOD PRESSURE Last administered on 08/04/16 16:35; Admin Dose 20 MG; Start 07/28/16 at 02:00 Polyethylene Glycol (Miralax) 17 gm DAILY PRN GTB CONSTIPATION Last administered on 07/28/16 20:22; Admin Dose 17 GM; Start 07/28/16 at 19:30 Lorazepam (Ativan) 1 mg Q4H PRN IV anxiety Last administered on 07/30/16 20:48 ; Admin Dose 1 MG; Start 07/29/16 at 06:30 Ethambutol HCl (Myambutol) 900 mg TuThSa@20 PO Last administered on 08/13/16 21:41; Admin Dose 900 MG; Start 07/31/16 at 20:00 Pyrazinamide (Pyrazinamide) 1,250 mg TuThSa@20 PO Last administered on 21:44; Admin Dose 1,250 MG; Start 07/31/16 at 20:00 Hydromorphone HCl (Dilaudid) 1 mg Q2H PRN IV pain Last administered on 13:56; Admin Dose 1 MG; Start 08/02/16 at 19:00 Zolpidem Tartrate (Ambien) 5 mg HS PRN PO INSOMNIA Last administered on 22:40; Admin Dose 5 MG; Start 08/08/16 at 21:00 Benazepril HCl (Lotensin) 10 mg BID PO ; Start 08/09/16 at 09:00; Status Future Hold Metoprolol Tartrate 25 mg 25 mg BID GTB Last administered on 08/14/16 20:42; Admin Dose 25 MG; Start 08/09/16 at 21:00 Caspofungin 50 mg/ Sodium Chloride 250 ml @ 250 mls/hr Q24H IVPB Last administered on 08/16/16 17:27; Admin Dose 250 MLS/HR; Start 08/10/16 at 17:00 Sodium Chloride 1,000 ml @ 50 mls/hr Q20H IV Last administered on 08/14/16 17 :48; Admin Dose 50 MLS/HR; Start 08/09/16 at 17:30; Status Future Hold Dopamine HCl/ Dextrose (D5W) 250 ml @ 1.71 mls/hr TITRATE IV Last administered on 08/11/16 15:07; Admin Dose 11.43 MLS/HR; Start 08/10/16 at 15:30 Acetaminophen (Tylenol Tab) 650 mg Q6H PRN PO PAIN AND OR ELEVATED TEMP Last administered on 08/12/16 00:54; Admin Dose 650 MG; Start 08/10/16 at 16:30 Clopidogrel Bisulfate 75 mg 75 mg DAILY PO Last administered on 08/16/16 08:21 ; Admin Dose 75 MG; Start 08/11/16 at 12:00 Phenylephrine HCl 160 mg/Dextrose 500 ml @ 18.75 mls/ hr TITRATE IV Last administered on 08/17/16 05:43; Admin Dose 46.87 MLS/HR; Start 08/12/16 at 06: 00 Meropenem (Merrem 500 Mg/ 100 ml (Pmx)) 100 ml @ 200 mls/hr Q24H IVPB Last administered on 08/17/16 09:12; Admin Dose 200 MLS/HR; Start 08/13/16 at 09:00 Epoetin Tutu (Epogen (Esrd)) 3,000 units TuThSa@17 SC Last administered on 08/16 17:25; Admin Dose 3,000 UNITS; Start 08/14/16 at 17:00 Epoetin Tutu (Epogen (Esrd)) 2,000 units TuThSa@17 SC Last administered on 08/16 17:26; Admin Dose 2,000 UNITS; Start 08/14/16 at 17:00 Triglycerides (Mct Oil (Ped)) 10 ml Q6 PO Last administered on 08/16/16 12:52 ; Admin Dose 10 ML; Start 08/14/16 at 12:30 Levofloxacin (Levaquin) 750 mg TuThSa PO Last administered on 08/14/16 20:42; Admin Dose 750 MG; Start 08/14/16 at 20:00 Calcium Carbonate (Tums) 500 mg TID PO Last administered on 08/16/16 12:53; Admin Dose 500 MG; Start 08/15/16 at 09:00 Insulin Glargine (Lantus) 15 unit DAILY SC Last administered on 08/17/16 09:14 ; Admin Dose 15 UNIT; Start 08/16/16 at 09:00 Midodrine 5 mg 5 mg BID@09,17 PO Last administered on 08/16/16 09:39; Admin Dose 5 MG; Start 08/15/16 at 17:00 Vasopressin 60 unit/Dextrose 60 ml @ 1.2 mls/hr Q12H IV Last administered on 23:49; Admin Dose 2.4 MLS/HR; Start 08/16/16 at 09:30 Norepinephrine 32 mg/Dextrose 250 ml @ 0.46 mls/hr TITRATE IV Last administered on 08/16/16 18:22; Admin Dose 14.06 MLS/HR; Start 08/16/16 at 13: 30 Epinephrine 4 mg/ Sodium Chloride 250 ml @ 3.75 mls/hr TITRATE IV ; Start 08/16 at 14:00 Sodium Bicarbonate 100 meq/Dextrose 1,100 ml @ 150 mls/hr Q7H20M IV Last administered on 08/17/16 11:35; Admin Dose 150 MLS/HR; Start 08/16/16 at 18:30 Vancomycin HCl 250 ml @ 125 mls/hr Q96H IVPB ; Start 08/18/16 at 16:00 Amiodarone HCl 900 mg/Dextrose 500 ml @ 0 mls/hr Q0M IV Last administered on 01:06; Admin Dose 33.4 MLS/HR; Start 08/17/16 at 00:30; Stop 08/18/16 at 00:29 Albumin Human 100 ml @ 250 mls/hr Q24M IV Last administered on 08/17/16 11:37 ; Admin Dose 250 MLS/HR; Start 08/17/16 at 11:00; Stop 08/17/16 at 14:59 Potassium Chloride 50 ml @ 25 mls/hr ONCE ONCE IVPB Last administered on 11:36; Admin Dose 25 MLS/HR; Start 08/17/16 at 11:30; Stop 4/16/17 at 13: 29 Calcium Gluconate/ Sodium Chloride (Ca Gluc/NS) 110 ml @ 110 mls/hr ONCE ONCE IVPB ; Start 08/17/16 at 12:30; Stop 08/17/16 at 13:29 PHILL PAGE M.D. Aug 17, 2016 12:42
--- NOTE | 2016-08-17 13:46 | CONS ---
Date/Time of Note Date/Time of Note DATE: 08/17/16 TIME: 13:43 Assessment/Plan Assessment/Plan Chief Complaint/Hosp Course IMPRESSION: 1. Recurrent pleural effusions. s/p vats 2. Lung infiltrate./cavitary lesion 3. s/p code blue positive troponin 4. Hypotension on pressor 5. Diabetes mellitus. 6. End-stage renal disease. 7. anemia. 8. cad. 9. chylothorax 10. ashd 11. vdrf 12. The patient on anti-tuberculosis treatment. 13. 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 14 dehydration on iv fluid 15 hypocalcemia w low albumin 16 poss thoracic duct injury PLAN per id and surg ctube care hd iv fluid albumin iv calcium prn tpn,mediun chain triglyceride pt should be tranferred to [facility] for thoracic duct repair d/w dr álvarez ck labs Problems: Consultation Date/Type/Reason Admit Date/Time Jul 24, 2016 at 12:53 Initial Consult Date 07/25/16 Type of Consultation: renal Referring Provider: EVA COX MD 24 HR Interval Summary Constitutional: other (on vent awake) Exam/Review of Systems Vital Signs Vitals Vital Signs Date Time Temp Pulse Resp B/P Pulse Ox O2 Delivery O2 Flow Rate FiO2 08/17/16 13:00 142 25 115/82 100 Mechanical Ventilator 08/17/16 12:03 97.1 08/17/16 11:10 40 08/16/16 11:00 2.0 Intake and Output 08/16/16 08/16/16 08/17/16 15:00 23:00 07:00 Intake Total 2519.6 ml 1789.84 ml 2215.74 ml Output Total 1100 ml 550 ml 1100 ml Balance 1419.6 ml 1239.84 ml 1115.74 ml Exam Neck: supple Respiratory: clear to auscultation Cardiovascular: regular rate and rhythm Gastrointestinal: bowel sounds (+), soft Extremities: No edema Results Result Diagram: 08/17/16 0340 08/17/16 0340 Results 24 hrs Laboratory Tests Test 08/16/16 16:58 08/16/16 17:00 08/16/16 17:32 08/16/16 20:38 White Blood Count 30.7 #H Red Blood Count 2.88 L Hemoglobin 9.6 L Hematocrit 29.4 L Mean Corpuscular Volume 102.1 H Mean Corpuscular Hemoglobin 33.3 H Mean Corpuscular Hemoglobin Concent 32.7 Red Cell Distribution Width 18.2 H Platelet Count 98 L Mean Platelet Volume 12.0 H Neutrophils % 87.0 H Band Neutrophils % 5.0 Lymphocytes % 2.0 L Monocytes % 6.0 Neutrophils # 26.7 H Lymphocytes # 0.6 L Monocytes # 1.8 H Platelet Estimate PLT APPEAR DECREASED Macrocytosis 1+ Sodium Level 129 L Potassium Level 3.7 Chloride Level 101 Carbon Dioxide Level 16 #L Anion Gap 16 # Blood Urea Nitrogen 36 H Creatinine 4.02 #H Glucose Level 372 H Calcium Level 6.2 L Total Bilirubin 2.0 H Direct Bilirubin 1.40 #H Indirect Bilirubin 0.6 Aspartate Amino Transf (AST/SGOT) 395 #H Alanine Aminotransferase (ALT/SGPT) 37 Alkaline Phosphatase 128 H Troponin I 2.030 *H Total Protein 3.7 L Albumin 1.8 L Globulin 1.90 Albumin/Globulin Ratio 0.94 Blood Gas Specimen Source Blood arterial Arterial Blood Date Drawn 08/16/2016 4:50:34 PM Arterial Blood pH (Temp corrected) 7.238 *L Arterial Blood pCO2 (Temp correct) 26.9 L Arterial Blood pO2 (Temp corrected) 551.4 H Arterial Blood HCO3 11.2 L Arterial Blood Base Excess -14.7 L Arterial Blood Oxygen Saturation 99.5 H Yoshi Test ACCEPTAB Arterial Blood Gas Puncture Site Left Radial Arterial Blood Carboxyhemoglobin 0.3 Arterial Blood Methemoglobin 0.5 Blood Gas A-a O2 Differential 134.7 H Oxyhemoglobin Percent 98.7 Total Hemoglobin 10.7 L Blood Gas Temperature 37.0 Blood Gas Respiration Rate 20.0 Blood Gas Actual Respiration Rate 20 Blood Gas Modality VENT - AC FiO2 100.0 Blood Gas Tidal Volume 600.0 Blood Gas Critical Value Read Back BAIRON COLE Blood Gas Notified Whom CW Blood Gas Notified Time 08/16/2016 5:07:32 PM Bedside Glucose 352 H 292 H Test 08/16/16 23:36 08/17/16 00:55 08/17/16 02:42 08/17/16 03:40 Sodium Level 127 L 128 L Potassium Level 3.7 3.4 L Chloride Level 97 94 L Carbon Dioxide Level 22 24 Anion Gap 12 13 Blood Urea Nitrogen 40 H 41 H Creatinine 3.93 H 4.18 H Glucose Level 234 #H 164 Calcium Level 6.0 L 6.1 L Magnesium Level 1.6 L Troponin I 6.710 *H 9.170 *H Prothrombin Time 30.6 #H Prothrombin Time Ratio 2.4 INR International Normalized Ratio 2.88 Bedside Glucose 177 White Blood Count 21.8 #H Red Blood Count 4.37 #L Hemoglobin 13.5 #L Hematocrit 39.0 #L Mean Corpuscular Volume 89.2 Mean Corpuscular Hemoglobin 30.9 Mean Corpuscular Hemoglobin Concent 34.6 Red Cell Distribution Width 17.5 H Platelet Count 52 #L Mean Platelet Volume 13.4 H Neutrophils % 91.4 H Lymphocytes % 3.6 L Monocytes % 3.4 Eosinophils % 0.5 Basophils % 0.2 Nucleated Red Blood Cells % 0.1 H Neutrophils # 19.9 H Lymphocytes # 0.8 Monocytes # 0.8 Eosinophils # 0.1 Basophils # 0.1 Nucleated Red Blood Cells # 0.0 Test 08/17/16 06:55 08/17/16 08:23 08/17/16 12:46 Blood Gas Specimen Source Blood arterial Arterial Blood Date Drawn 08/17/2016 8:05:20 AM Arterial Blood pH (Temp corrected) 7.482 H Arterial Blood pCO2 (Temp correct) 24.6 L Arterial Blood pO2 (Temp corrected) 214.4 H Arterial Blood HCO3 18.0 L Arterial Blood Base Excess -3.7 L Arterial Blood Oxygen Saturation 99.2 H Yoshi Test ACCEPTAB Arterial Blood Gas Puncture Site Right Radial Arterial Blood Carboxyhemoglobin 0.3 Arterial Blood Methemoglobin 0.5 Blood Gas A-a O2 Differential 114.4 H Oxyhemoglobin Percent 98.4 Total Hemoglobin 13.4 Blood Gas Temperature 37.0 Blood Gas Respiration Rate 20.0 Blood Gas Actual Respiration Rate 21 Blood Gas Modality VENT - AC FiO2 50.0 Blood Gas Tidal Volume 600.0 Blood Gas Inspiratory Pressure 20.0 Blood Gas Notified Whom SM Blood Gas Notified Time 08/17/2016 8:16:12 AM Bedside Glucose 126 109 Medications Medications Current Medications Aspirin (Halfprin) 81 mg DAILY PO Last administered on 08/16/16 08:21; Admin Dose 81 MG; Start 07/25/16 at 09:00; Status Future Hold Atorvastatin Calcium (Lipitor) 10 mg QHS PO Last administered on 08/15/16 21: 40; Admin Dose 10 MG; Start 07/24/16 at 21:00; Status Future Hold Cholecalciferol (Vitamin D) 400 units DAILY PO Last administered on 08/16/16 08:21; Admin Dose 400 UNITS; Start 07/25/16 at 09:00 Famotidine (Pepcid) 20 mg DAILY PO Last administered on 08/16/16 08:21; Admin Dose 20 MG; Start 07/25/16 at 09:00 Ferrous Sulfate (Ferrous Sulfate (Ec)) 325 mg BID PO Last administered on 08:21; Admin Dose 325 MG; Start 07/24/16 at 21:00 Acetaminophen/ Hydrocodone Bitart ([place] (5/325)) 1 tab Q4H PRN PO PAIN Last administered on 08/14/16 14:11; Admin Dose 1 TAB; Start 07/24/16 at 17:00 Isoniazid (Isoniazid) 300 mg DAILY PO Last administered on 08/16/16 08:21; Admin Dose 300 MG; Start 07/24/16 at 15:30 Pyridoxine HCl (Vitamin B6) 50 mg DAILY PO Last administered on 08/16/16 08:21 ; Admin Dose 50 MG; Start 07/25/16 at 09:00 Miscellaneous Information 1 ea NOTE XX ; Start 07/24/16 at 16:00 Glucose (Glutose) 15 gm Q15M PRN PO DECREASED GLUCOSE; Start 07/24/16 at 16:00 Glucose (Glutose) 22.5 gm Q15M PRN PO DECREASED GLUCOSE; Start 07/24/16 at 16: 00 Dextrose (D50w Syringe) 25 ml Q15M PRN IV DECREASED GLUCOSE; Start 07/24/16 at 16:00 Dextrose (D50w Syringe) 50 ml Q15M PRN IV DECREASED GLUCOSE; Start 07/24/16 at 16:00 Glucagon (Glucagen) 1 mg Q15M PRN IM DECREASED GLUCOSE; Start 07/24/16 at 16:00 Glucose (Glutose) 15 gm Q15M PRN BUCCAL DECREASED GLUCOSE; Start 07/24/16 at 16 :00 Ondansetron HCl (Zofran Inj) 4 mg Q4 PRN IV nausea Last administered on 21:40; Admin Dose 4 MG; Start 07/24/16 at 17:00 Metoclopramide HCl (Reglan) 5 mg Q4H PRN IV NAUSEA Last administered on 16:40; Admin Dose 5 MG; Start 07/24/16 at 22:30 Diagnostic Test (Pha) (Accu-Chek) 1 ea 02 XX Last administered on 08/17/16 02: 00; Admin Dose 1 EA; Start 07/26/16 at 12:00 Pantoprazole (Protonix Tab) 40 mg DAILY@06 PO Last administered on 08/16/16 06 :05; Admin Dose 40 MG; Start 07/28/16 at 06:00 Hydralazine HCl (Apresoline) 20 mg Q4 PRN IV ELEVATED BLOOD PRESSURE Last administered on 08/04/16 16:35; Admin Dose 20 MG; Start 07/28/16 at 02:00 Polyethylene Glycol (Miralax) 17 gm DAILY PRN GTB CONSTIPATION Last administered on 07/28/16 20:22; Admin Dose 17 GM; Start 07/28/16 at 19:30 Lorazepam (Ativan) 1 mg Q4H PRN IV anxiety Last administered on 07/30/16 20:48 ; Admin Dose 1 MG; Start 07/29/16 at 06:30 Ethambutol HCl (Myambutol) 900 mg TuThSa@20 PO Last administered on 08/13/16 21:41; Admin Dose 900 MG; Start 07/31/16 at 20:00 Pyrazinamide (Pyrazinamide) 1,250 mg TuThSa@20 PO Last administered on 21:44; Admin Dose 1,250 MG; Start 07/31/16 at 20:00 Hydromorphone HCl (Dilaudid) 1 mg Q2H PRN IV pain Last administered on 13:56; Admin Dose 1 MG; Start 08/02/16 at 19:00 Zolpidem Tartrate (Ambien) 5 mg HS PRN PO INSOMNIA Last administered on 22:40; Admin Dose 5 MG; Start 08/08/16 at 21:00 Benazepril HCl (Lotensin) 10 mg BID PO ; Start 08/09/16 at 09:00; Status Future Hold Metoprolol Tartrate 25 mg 25 mg BID GTB Last administered on 08/14/16 20:42; Admin Dose 25 MG; Start 08/09/16 at 21:00 Caspofungin 50 mg/ Sodium Chloride 250 ml @ 250 mls/hr Q24H IVPB Last administered on 08/16/16 17:27; Admin Dose 250 MLS/HR; Start 08/10/16 at 17:00 Sodium Chloride 1,000 ml @ 50 mls/hr Q20H IV Last administered on 08/14/16 17 :48; Admin Dose 50 MLS/HR; Start 08/09/16 at 17:30; Status Future Hold Dopamine HCl/ Dextrose (D5W) 250 ml @ 1.71 mls/hr TITRATE IV Last administered on 08/11/16 15:07; Admin Dose 11.43 MLS/HR; Start 08/10/16 at 15:30 Acetaminophen (Tylenol Tab) 650 mg Q6H PRN PO PAIN AND OR ELEVATED TEMP Last administered on 08/12/16 00:54; Admin Dose 650 MG; Start 08/10/16 at 16:30 Clopidogrel Bisulfate 75 mg 75 mg DAILY PO Last administered on 08/16/16 08:21 ; Admin Dose 75 MG; Start 08/11/16 at 12:00; Status Future Hold Phenylephrine HCl 160 mg/Dextrose 500 ml @ 18.75 mls/ hr TITRATE IV Last administered on 08/17/16 05:43; Admin Dose 46.87 MLS/HR; Start 08/12/16 at 06: 00 Meropenem (Merrem 500 Mg/ 100 ml (Pmx)) 100 ml @ 200 mls/hr Q24H IVPB Last administered on 08/17/16 09:12; Admin Dose 200 MLS/HR; Start 08/13/16 at 09:00 Epoetin Tutu (Epogen (Esrd)) 3,000 units TuThSa@17 SC Last administered on 08/16 17:25; Admin Dose 3,000 UNITS; Start 08/14/16 at 17:00 Epoetin Tutu (Epogen (Esrd)) 2,000 units TuThSa@17 SC Last administered on 08/16 17:26; Admin Dose 2,000 UNITS; Start 08/14/16 at 17:00 Triglycerides (Mct Oil (Ped)) 10 ml Q6 PO Last administered on 08/16/16 12:52 ; Admin Dose 10 ML; Start 08/14/16 at 12:30 Levofloxacin (Levaquin) 750 mg TuThSa PO Last administered on 08/14/16 20:42; Admin Dose 750 MG; Start 08/14/16 at 20:00 Calcium Carbonate (Tums) 500 mg TID PO Last administered on 08/17/16 13:04; Admin Dose 500 MG; Start 08/15/16 at 09:00 Insulin Glargine (Lantus) 15 unit DAILY SC Last administered on 08/17/16 09:14 ; Admin Dose 15 UNIT; Start 08/16/16 at 09:00 Midodrine 5 mg 5 mg BID@09,17 PO Last administered on 08/16/16 09:39; Admin Dose 5 MG; Start 08/15/16 at 17:00 Vasopressin 60 unit/Dextrose 60 ml @ 1.2 mls/hr Q12H IV Last administered on 23:49; Admin Dose 2.4 MLS/HR; Start 08/16/16 at 09:30 Norepinephrine 32 mg/Dextrose 250 ml @ 0.46 mls/hr TITRATE IV Last administered on 08/16/16 18:22; Admin Dose 14.06 MLS/HR; Start 08/16/16 at 13: 30 Epinephrine 4 mg/ Sodium Chloride 250 ml @ 3.75 mls/hr TITRATE IV ; Start 08/16 at 14:00 Sodium Bicarbonate 100 meq/Dextrose 1,100 ml @ 150 mls/hr Q7H20M IV Last administered on 08/17/16 11:35; Admin Dose 150 MLS/HR; Start 08/16/16 at 18:30 Vancomycin HCl 250 ml @ 125 mls/hr Q96H IVPB ; Start 08/18/16 at 16:00 Amiodarone HCl 900 mg/Dextrose 500 ml @ 0 mls/hr Q0M IV Last administered on 01:06; Admin Dose 33.4 MLS/HR; Start 08/17/16 at 00:30; Stop 08/18/16 at 00:29 Albumin Human (Albumin Human 25%) 100 ml @ 250 mls/hr Q24M IV Last administered on 08/17/16 13:29; Admin Dose 250 MLS/HR; Start 08/17/16 at 11:00 ; Stop 08/17/16 at 14:59 PAOLA MOODY MD Aug 17, 2016 13:45
[2016-08-17] MEDS ORDERED: PHYTONADIONE 10 MG/ML INJ IM ONE (15:30)
[2016-08-17] MEDS: LORAZEPAM 2 MG INJ IV PRN (15:35)
--- NOTE | 2016-08-17 16:56 | DS ---
Date/Time of Note Date/Time of Note DATE: 08/17/16 TIME: 16:51 Discharge Summary Admission/Discharge Info Admit Date/Time Jul 24, 2016 at 12:53 Discharge Date/Time 08/17/16 Final Diagnosis 1) pleural effusion 2) sepsis 3) respiratory failure 4) diabetes 5) renal failure Consults pulmonary cardiology nephrology cardiothoracic surgery Hx of Present Illness coughing up bright red blood, h/o TB w/ unclear hx. respiratory precausions ROS All systems reviewed and are negative except as per history of present illness. Medications Home Meds Active Scripts Hydrocodone/Acetaminophen ([place] 5-325 Tablet) 1 Each Tablet, 1 EACH PO Q4 for PAIN, #30 TAB Prov:CECILIA DAMICO 07/21/16 Ferrous Sulfate* (Ferrous Sulfate*) 325 Mg Tabec, 325 MG PO BID for 30 Days, TAB Prov:CECILIA DAMICO 07/21/16 Metoprolol Tartrate* (Lopressor*) 25 Mg Tab, 75 MG PO BID for 30 Days, TAB Prov:CECILIA DAMICO 07/21/16 Nifedipine (Nifedical Xl) 60 Mg Tab.er.24, 60 MG PO BID for 30 Days, TAB Prov:CECILIA DAMICO 07/21/16 Insulin Glargine* (Lantus*) 100 Unit/Ml Soln, 6 UNIT SC DAILY@20, #30 Prov:CCEILIA DAMICO 07/21/16 Insulin Aspart* (Novolog Insulin Pen*) 100 Unit/Ml Soln, 2 UNIT SC WITH BREAKFAST LUNCH for 30 Days Prov:CECILIA DAMICO 07/21/16 Clopidogrel Bisulfate* (Clopidogrel Bisulfate*) 75 Mg Tablet, 75 MG PO DAILY, # 30 TAB Prov:CECILIA DAMICO 07/21/16 Aspirin* (Aspirin* EC) 81 Mg Tablet.dr, 81 MG PO DAILY, #30 TAB Prov:CECILIA DAMICO 07/21/16 Sevelamer Carbonate* (Renvela*) 800 Mg Tablet, 0.8 GM PO WITH MEALS for 30 Days , TAB Prov:JASON DAMICOA 07/21/16 Atorvastatin Calcium (Atorvastatin Calcium) 10 Mg Tablet, 10 MG PO QHS, #30 TAB Prov:CECILIA DAMICO 07/21/16 Calcium Acetate* (Calcium Acetate*) 667 Mg Capsule, 667 MG PO WITH MEALS for 90 Days, #270 CAP Prov:CECILIA DAMICO 07/21/16 Benazepril Hcl* (Benazepril Hcl*) 40 Mg Tablet, 40 MG PO BID for 30 Days, TAB Prov:CECILIA DAMICO 06/24/16 Amlodipine Besylate* (Amlodipine Besylate*) 5 Mg Tablet, 5 MG PO BID for 30 Days , TAB Prov:CECILIA DAMICO 06/24/16 Reported Medications Cholecalciferol* (Vitamin D*) 400 Unit Tablet, 400 UNIT PO DAILY, TAB 06/13/16 Famotidine* (Famotidine*) 20 Mg Tablet, 20 MG PO DAILY, #30 TAB 06/13/16 Discontinued Reported Medications Insulin Lispro (Humalog) 100 Unit/1 Ml Cartridge, 0 SQ SLIDING SCALE Y for WITH MEALS 06/13/16 Insulin Glargine* (Lantus*) 100 Unit/Ml Soln, 18 UNIT SC QHS, #1 VIAL 06/13/16 Metoprolol Tartrate* (Lopressor*) 25 Mg Tab, 25 MG PO BID, #60 TAB 06/13/16 Allergies Allergies: Coded Allergies: No Known Allergy (Unverified , 06/15/16) Hospital Course Patient came in with recurrent pleural effusion but during the hospitalization patient developed respiratory failure, end stage renal failure, sepsis, coronary artery disease, chylothorax, thoracic duct injury. Patient had a complicated course requiring aggressive treatment including hemodialysis, respiratory ventilatory support, multiple antibiotics. In the end, patient require repair to thoracic duct which cannot be performed by the staff at [facility]. Arrangement were made for the patient to be transfered to [facility] and once there he will received continued care including surgical repair of the thoracic duct. IMPRESSION: 1. Recurrent pleural effusions. s/p vats 2. Lung infiltrate./cavitary lesion 3. s/p code blue positive troponin 4. Hypotension on pressor 5. Diabetes mellitus. 6. End-stage renal disease. 7. anemia. 8. cad. 9. chylothorax 10. ashd 11. vdrf 12. The patient on anti-tuberculosis treatment. 13. 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 14 dehydration on iv fluid 15 hypocalcemia w low albumin 16 poss thoracic duct injury PLAN per id and surg ctube care hd iv fluid albumin iv calcium prn tpn,mediun chain triglyceride pt [facility] be tranferred [facility] for thoracic duct repair d/w dr álvarez ck labs Home Meds Active Scripts Hydrocodone/Acetaminophen ([place] 5-325 Tablet) 1 Each Tablet, 1 EACH PO Q4 for PAIN, #30 TAB Prov:CECILIA DAMICO 07/21/16 Ferrous Sulfate* (Ferrous Sulfate*) 325 Mg Tabec, 325 MG PO BID for 30 Days, TAB Prov:KRISTOPHERCHALINOCECILIA 07/21/16 Metoprolol Tartrate* (Lopressor*) 25 Mg Tab, 75 MG PO BID for 30 Days, TAB Prov:KRISTOPHERCHALINOCECILIA 07/21/16 Nifedipine (Nifedical Xl) 60 Mg Tab.er.24, 60 MG PO BID for 30 Days, TAB Prov:CHALINO DAMICOLANA 07/21/16 Insulin Glargine* (Lantus*) 100 Unit/Ml Soln, 6 UNIT SC DAILY@20, #30 Prov:07/21/16 Insulin Aspart* (Novolog Insulin Pen*) 100 Unit/Ml Soln, 2 UNIT SC WITH BREAKFAST LUNCH for 30 Days Prov:CHALINO DAMICOLANA 07/21/16 Clopidogrel Bisulfate* (Clopidogrel Bisulfate*) 75 Mg Tablet, 75 MG PO DAILY, # 30 TAB Prov:BRIANCORA FREEMANCECILIA 07/21/16 Aspirin* (Aspirin* EC) 81 Mg Tablet.dr, 81 MG PO DAILY, #30 TAB Prov:CHALINO DAMICOLANA 07/21/16 Sevelamer Carbonate* (Renvela*) 800 Mg Tablet, 0.8 GM PO WITH MEALS for 30 Days , TAB Prov:CHALINO DAMICOLANA 07/21/16 Atorvastatin Calcium (Atorvastatin Calcium) 10 Mg Tablet, 10 MG PO QHS, #30 TAB Prov:07/21/16 Calcium Acetate* (Calcium Acetate*) 667 Mg Capsule, 667 MG PO WITH MEALS for 90 Days, #270 CAP Prov:CORA DAMICOETLANA 07/21/16 Benazepril Hcl* (Benazepril Hcl*) 40 Mg Tablet, 40 MG PO BID for 30 Days, TAB Prov:CECILIA DAMICO 06/24/16 Amlodipine Besylate* (Amlodipine Besylate*) 5 Mg Tablet, 5 MG PO BID for 30 Days , TAB Prov:CECILIA DAMICO 06/24/16 Reported Medications Rifampin* (Rifampin*) 300 Mg Cap, 600 MG PO DAILY, CAP 07/24/16 Pyrazinamide* (Pyrazinamide*) 500 Mg Tablet, 1500 MG PO THREE TIMES A WEEK, TAB 07/24/16 Isoniazid* (Isoniazid*) 300 Mg Tablet, 300 MG PO DAILY, TAB 07/24/16 Pyridoxine Hcl* (Pyridoxine Hcl*) 50 Mg Tablet, 50 MG PO DAILY, TAB 07/24/16 Ethambutol HCl* (Myambutol*) 400 Mg Tablet, 1200 MG PO THREE TIMES A WEEK 07/24/16 Cholecalciferol* (Vitamin D*) 400 Unit Tablet, 400 UNIT PO DAILY, TAB 06/13/16 Famotidine* (Famotidine*) 20 Mg Tablet, 20 MG PO DAILY, #30 TAB 06/13/16 Pending Labs Laboratory Tests Test 08/16/16 16:58 08/16/16 17:00 08/16/16 17:32 08/16/16 20:38 White Blood Count 30.710^3/ul (4.8-10.8) Red Blood Count 2.8810^6/ul (4.70-6.10) Hemoglobin 9.6g/dl (14.0-18.0) Hematocrit 29.4% (42.0-52.0) Mean Corpuscular Volume 102.1fl (82.0-101.0) Mean Corpuscular Hemoglobin 33.3pg (29.0-33.0) Mean Corpuscular Hemoglobin Concent 32.7g/dl (32.0-37.0) Red Cell Distribution Width 18.2% (11.5-14.5) Platelet Count 9810^3/UL (140-415) Mean Platelet Volume 12.0fl (7.4-10.4) Neutrophils % 87.0% (39.0-77.0) Band Neutrophils % 5.0% (0.0-5.0) Lymphocytes % 2.0% (15.0-51.0) Monocytes % 6.0% (0.0-11.0) Neutrophils # 26.710^3/ul (1.6-7.5) Lymphocytes # 0.610^3/ul (0.8-2.9) Monocytes # 1.810^3/ul (0.3-0.9) Platelet Estimate PLT APPEAR DECREASED Macrocytosis 1+ Sodium Level 129mmol/L (135-144) Potassium Level 3.7mmol/L (3.5-5.1) Chloride Level 101mmol/L (97-110) Carbon Dioxide Level 16mmol/L (21-31) Anion Gap 16 (8-16) Blood Urea Nitrogen 36mg/dl (7-20) Creatinine 4.02mg/dl (0.61-1.24) Glucose Level 372mg/dl (70-220) Calcium Level 6.2mg/dl (8.4-10.2) Total Bilirubin 2.0mg/dl (0.2-1.3) Direct Bilirubin 1.40mg/dl (0.00-0.20) Indirect Bilirubin 0.6mg/dl (0-1.1) Aspartate Amino Transf (AST/SGOT) 395IU/L (15-46) Alanine Aminotransferase (ALT/SGPT) 37IU/L (13-69) Alkaline Phosphatase 128IU/L (42-121) Troponin I 2.030ng/ml (0.00-0.12) Total Protein 3.7g/dl (6.1-8.1) Albumin 1.8g/dl (3.3-4.9) Globulin 1.90g/dl (1.3-3.2) Albumin/Globulin Ratio 0.94 Blood Gas Specimen Source Blood arterial Arterial Blood Date Drawn 08/16/2016 4:50:34 PM Arterial Blood pH (Temp corrected) 7.238 (7.350-7.450) Arterial Blood pCO2 (Temp correct) 26.9mmhg (35-45) Arterial Blood pO2 (Temp corrected) 551.4mmHG (80-100.0) Arterial Blood HCO3 11.2mmol/L (22.0-26.0) Arterial Blood Base Excess -14.7mmol/L (-3.0-3) Arterial Blood Oxygen Saturation 99.5mmHG (95.0-98.0) Yoshi Test ACCEPTAB Arterial Blood Gas Puncture Site Left Radial Arterial Blood Carboxyhemoglobin 0.3% (0.0-3.0) Arterial Blood Methemoglobin 0.5% (0.0-1.5) Blood Gas A-a O2 Differential 134.7mmHg (7.0-24.0) Oxyhemoglobin Percent 98.7% (93.0-99.0) Total Hemoglobin 10.7g/dl (12.0-18.0) Blood Gas Temperature 37.0C Blood Gas Respiration Rate 20.0 Blood Gas Actual Respiration Rate 20 Blood Gas Modality VENT - AC FiO2 100.0% Blood Gas Tidal Volume 600.0mL Blood Gas Critical Value Read Back BAIRON COLE Blood Gas Notified Whom CW Blood Gas Notified Time 08/16/2016 5:07:32 PM Bedside Glucose 352mg/dL (70-220) 292mg/dL (70-220) Test 08/16/16 23:36 08/17/16 00:55 08/17/16 02:42 08/17/16 03:40 Sodium Level 127mmol/L (135-144) 128mmol/L (135-144) Potassium Level 3.7mmol/L (3.5-5.1) 3.4mmol/L (3.5-5.1) Chloride Level 97mmol/L (97-110) 94mmol/L (97-110) Carbon Dioxide Level 22mmol/L (21-31) 24mmol/L (21-31) Anion Gap 12 (8-16) 13 (8-16) Blood Urea Nitrogen 40mg/dl (7-20) 41mg/dl (7-20) Creatinine 3.93mg/dl (0.61-1.24) 4.18mg/dl (0.61-1.24) Glucose Level 234mg/dl (70-220) 164mg/dl (70-220) Calcium Level 6.0mg/dl (8.4-10.2) 6.1mg/dl (8.4-10.2) Magnesium Level 1.6mg/dl (1.7-2.5) Troponin I 6.710ng/ml (0.00-0.12) 9.170ng/ml (0.00-0.12) Prothrombin Time 30.6Sec (12.2-14.2) Prothrombin Time Ratio 2.4 INR International Normalized Ratio 2.88 Bedside Glucose 177mg/dL (70-220) White Blood Count 21.810^3/ul (4.8-10.8) Red Blood Count 4.3710^6/ul (4.70-6.10) Hemoglobin 13.5g/dl (14.0-18.0) Hematocrit 39.0% (42.0-52.0) Mean Corpuscular Volume 89.2fl (82.0-101.0) Mean Corpuscular Hemoglobin 30.9pg (29.0-33.0) Mean Corpuscular Hemoglobin Concent 34.6g/dl (32.0-37.0) Red Cell Distribution Width 17.5% (11.5-14.5) Platelet Count 5210^3/UL (140-415) Mean Platelet Volume 13.4fl (7.4-10.4) Neutrophils % 91.4% (39.0-77.0) Lymphocytes % 3.6% (15.0-51.0) Monocytes % 3.4% (0.0-11.0) Eosinophils % 0.5% (0.0-7.0) Basophils % 0.2% (0.0-2.0) Nucleated Red Blood Cells % 0.1/100WBC (0.0-0.0) Neutrophils # 19.910^3/ul (1.6-7.5) Lymphocytes # 0.810^3/ul (0.8-2.9) Monocytes # 0.810^3/ul (0.3-0.9) Eosinophils # 0.110^3/ul (0.0-0.5) Basophils # 0.110^3/ul (0.0-0.1) Nucleated Red Blood Cells # 0.010^3/ul (0.0-0.0) Test 08/17/16 06:55 08/17/16 08:23 08/17/16 12:46 Blood Gas Specimen Source Blood arterial Arterial Blood Date Drawn 08/17/2016 8:05:20 AM Arterial Blood pH (Temp corrected) 7.482 (7.350-7.450) Arterial Blood pCO2 (Temp correct) 24.6mmhg (35-45) Arterial Blood pO2 (Temp corrected) 214.4mmHG (80-100.0) Arterial Blood HCO3 18.0mmol/L (22.0-26.0) Arterial Blood Base Excess -3.7mmol/L (-3.0-3) Arterial Blood Oxygen Saturation 99.2mmHG (95.0-98.0) Yoshi Test ACCEPTAB Arterial Blood Gas Puncture Site Right Radial Arterial Blood Carboxyhemoglobin 0.3% (0.0-3.0) Arterial Blood Methemoglobin 0.5% (0.0-1.5) Blood Gas A-a O2 Differential 114.4mmHg (7.0-24.0) Oxyhemoglobin Percent 98.4% (93.0-99.0) Total Hemoglobin 13.4g/dl (12.0-18.0) Blood Gas Temperature 37.0C Blood Gas Respiration Rate 20.0 Blood Gas Actual Respiration Rate 21 Blood Gas Modality VENT - AC FiO2 50.0% Blood Gas Tidal Volume 600.0mL Blood Gas Inspiratory Pressure 20.0 Blood Gas Notified Whom SM Blood Gas Notified Time 08/17/2016 8:16:12 AM Bedside Glucose 126mg/dL (70-220) 109mg/dL (70-220) Microbiology Date/Time Source Procedure Growth Status 08/16/16 22:00 Feces Clostridium difficile Toxin Assay - Final Complete HELEN SHARP Aug 17, 2016 16:55
[2016-08-17] MEDS: CASPOFUNGIN 50 MG in SOD CHLORIDE 0.9% 250 ML IVPB SCH (17:08)
[2016-08-17] MEDS: DEXTROSE 50% 50 ML SYRINGE IV PRN ×3 (18:05→19:48)
--- NOTE | 2016-08-17 18:59 | CONS ---
DATE OF ADMISSION: 07/24/2016 DATE OF CONSULTATION: HISTORY OF PRESENT ILLNESS: The patient apparently went into cardiopulmonary arrest on the floor ye day. No pulse, no blood pressure and he was resuscitated. He was intubated and he was started o n Angelito-Synephrine, Levophed and he was subsequently transferred to the intensive care unit. The patient had an episode of rectal bleeding and hemoglobin was around 9.6. Two units of packed red blood cells were given and after that, hemoglobin went up to 13.5. PHYSICAL EXAMINATION: On examination the patient has a chest tube which has been draining milky liq uids from the chest, indicating that the thoracic duct injury is about 2.5 L of fluid drained today from the chest tube. VITAL SIGNS: Blood pressure is around 90 systolic. He is on Angelito-Synephrine and Levophed at this ti me. Pulse is around 120, in fact it was 150, later on is down to 120. The patient intubated. CARDIOVASCULAR: Normal heart sounds. RESPIRATORY: Normal breath sounds. ABDOMEN: Shows soft abdomen. LABORATORY DATA: Hemoglobin as mentioned 13.5. Prothrombin time is 30.6, INR of 2.4. CLINICAL IMPRESSION: The patient presenting with a history of rectal bleeding after cardiopulmonary arrest and prothrombin time is high. Hemoglobin is up to 30 now after transfusion. The rectal bleed ing source is not very clear. He could have an arteriovenous malformation or coagulopathy causing t he bleeding. Diverticulosis, colorectal neoplasm were possibilities; however, at this time, I orde red GI bleeding scan, but this cannot be done because of the patient's poor unstable status. PLAN: Transfuse as needed. Recommend 2 units of fresh frozen plasma and vitamin K 10 mg subq. I will be happy to follow this pa tient with you. Once again, doctor, thank you for this consultation. Dictated By: CLAUDIO MUNIZ MD NC/NTS Conf#: [id number] DID#: [id number] CC: EVA COX MD;*EndCC*
--- NOTE | 2016-08-17 20:54 | CONS ---
Date/Time of Note Date/Time of Note DATE: 08/17/16 TIME: 20:52 Assessment/Plan Assessment/Plan Chief Complaint/Hosp Course - possible tubercular empyema: R sided complex loculated air containing empyemas , visceral and parietal pleural calcifications. - a 35 mm lesion with possible cavitation in the anterior inferior RUL, possible recurrent tuberculosis - high risk for TB: history (originally from [facility], spends one month of each year in [facility], last in 09/2015), medical history (DM, ESRD), laboratory findings (positive quantiferon TB gold, granulomatous inflammation with focal necrosis on Bx of pleura) - AFB smear was negative x3, also M. tuberculosis DNA probe to the 1st sputum sample was undetectable in early 07/2016; mycobacterium tuberculosis DNA probe to fluid in GUIDO bulb sent on 08/06/2016 was negative - s/p first R VATS, total pulmonary decortication, R pleurodesis on 06/30/2016. Biopsy was negative for fungal stain and AFB stain (micro lab and pathology department), as well as malignancy. It showed granulomatous inflammation with focal necrosis and extensive hyalinization. - s/p second R VATS, decortication thoracotomy on 08/04/2016. Per Dr. Martinez, the tissue did not appear empyema. It was largely blood clots and tissue debris. Fluid was sent for cultures, but not tissue. Path showed blood and polarizable foreign material, no malignancy - sputum collected on 08/02/2016 was negative for mycobacterium tuberculosis DNA probe - h/o recurrent pleural effusion requiring thoracentesis approximately once a year, last performed in 04/2016 prior to this admission - positive quantiferon TB gold status of unknown duration. Per Pt, his past PPD was done in 2013, and was negative. - Our infection network controller Lindsey contacted the TB control unit at [facility]: we learned on 07/11/2016 that Pt has h/o mycobacterial tuberculosis infection in 1997 and was treated between 1997 and 1998. - DM s/p hypoglycemic episode on 08/04/16 & 08/06/16 (Hgb A1c 5.2% on 06/17/16 unreliable d/t recent blood transfusion; Hgb A1c 8.6% on 05/03/15) - ESRD on HD - CAD s/p CABG in 2010 and cardiac stent in 2013 - Moderate to severe protein calorie malnutrition - HIV screen negative in 07/[address] [facility] - Sepsis vs SIRS; Procalc 10.04 on 08/09/16 - Hypotension requiring Levophed & Dopamine - Hyperbilirubinemia - Hyponatremia - Hypocalcemia - Shock, hypovolemic +/- septic, on pressor support - PEA arrest 08/16/16 - Acute respiratory failure s/p intubation 08/16/16 - Elevated troponin - LGIB Recommendations: - will review the results of blood cultures x2 and resp culture from 08/16/2016, [id number] 08/10/16 (?cancelled; re-ordered on 08/14/16) - awaiting cocci CF (pending) and crypto antigen (negative) in serum, sent - check LFTs' weekly - consider repeat CT chest - continue empiric jae/caspofungin (08/09/16-), IV vanc (08/16/2016-) - continue renally dosed po Levaquin 750 mg 3x/week after HD as recommended by TB Control (08/12/16-) - continue renally dosed isoniazid, pyrazinamide, ethambutol and vitamin B6 supplement (07/12/2016-) management d/w Pt's RN, , sons the critical care time I took to care for this Pt today was from 2019 to 2099 Problems: Consultation Date/Type/Reason Admit Date/Time Jul 24, 2016 at 12:53 Initial Consult Date 07/25/16 Type of Consultation: ID Referring Provider: EVA COX MD 24 HR Interval Summary Subjective hx not possible: pt non-verbal Exam/Review of Systems Vital Signs Vitals Vital Signs Date Time Temp Pulse Resp B/P Pulse Ox O2 Delivery O2 Flow Rate FiO2 08/17/16 20:30 118 28 117/78 08/17/16 20:00 78 Mechanical Ventilator 08/17/16 20:00 40 08/17/16 19:15 98.3 08/16/16 11:00 2.0 Intake and Output 08/16/16 08/16/16 08/17/16 15:00 23:00 07:00 Intake Total 2519.6 ml 1789.84 ml 2215.74 ml Output Total 1100 ml 550 ml 1100 ml Balance 1419.6 ml 1239.84 ml 1115.74 ml Exam Constitutional: frail, non-verbal Head: normocephalic ENMT: intubated Respiratory: diminished breath sounds, other (CT on R side) Cardiovascular: nl pulses, regular rate and rhythm Gastrointestinal: non-tender, soft Musculoskeletal: nl extremities to inspection Extremities: No edema Skin: nl turgor Results Result Diagram: 08/17/16 0340 08/17/16 0340 Results 24 hrs Laboratory Tests Test 08/16/16 23:36 08/17/16 00:55 08/17/16 02:42 08/17/16 03:40 Sodium Level 127 L 128 L Potassium Level 3.7 3.4 L Chloride Level 97 94 L Carbon Dioxide Level 22 24 Anion Gap 12 13 Blood Urea Nitrogen 40 H 41 H Creatinine 3.93 H 4.18 H Glucose Level 234 #H 164 Calcium Level 6.0 L 6.1 L Magnesium Level 1.6 L Troponin I 6.710 *H 9.170 *H Prothrombin Time 30.6 #H Prothrombin Time Ratio 2.4 INR International Normalized Ratio 2.88 Bedside Glucose 177 White Blood Count 21.8 #H Red Blood Count 4.37 #L Hemoglobin 13.5 #L Hematocrit 39.0 #L Mean Corpuscular Volume 89.2 Mean Corpuscular Hemoglobin 30.9 Mean Corpuscular Hemoglobin Concent 34.6 Red Cell Distribution Width 17.5 H Platelet Count 52 #L Mean Platelet Volume 13.4 H Neutrophils % 91.4 H Lymphocytes % 3.6 L Monocytes % 3.4 Eosinophils % 0.5 Basophils % 0.2 Nucleated Red Blood Cells % 0.1 H Neutrophils # 19.9 H Lymphocytes # 0.8 Monocytes # 0.8 Eosinophils # 0.1 Basophils # 0.1 Nucleated Red Blood Cells # 0.0 Test 08/17/16 06:55 08/17/16 08:23 08/17/16 12:46 08/17/16 17:58 Blood Gas Specimen Source Blood arterial Arterial Blood Date Drawn 08/17/2016 8:05:20 AM Arterial Blood pH (Temp corrected) 7.482 H Arterial Blood pCO2 (Temp correct) 24.6 L Arterial Blood pO2 (Temp corrected) 214.4 H Arterial Blood HCO3 18.0 L Arterial Blood Base Excess -3.7 L Arterial Blood Oxygen Saturation 99.2 H Yoshi Test ACCEPTAB Arterial Blood Gas Puncture Site Right Radial Arterial Blood Carboxyhemoglobin 0.3 Arterial Blood Methemoglobin 0.5 Blood Gas A-a O2 Differential 114.4 H Oxyhemoglobin Percent 98.4 Total Hemoglobin 13.4 Blood Gas Temperature 37.0 Blood Gas Respiration Rate 20.0 Blood Gas Actual Respiration Rate 21 Blood Gas Modality VENT - AC FiO2 50.0 Blood Gas Tidal Volume 600.0 Blood Gas Inspiratory Pressure 20.0 Blood Gas Notified Whom SM Blood Gas Notified Time 08/17/2016 8:16:12 AM Bedside Glucose 126 109 < 13 *L Test 08/17/16 18:04 08/17/16 18:22 08/17/16 18:46 08/17/16 19:07 Bedside Glucose 24 *L 102 63 L 147 Test 08/17/16 19:31 08/17/16 19:35 08/17/16 20:04 08/17/16 20:18 Bedside Glucose 53 L 72 123 103 Medications Medications Current Medications Aspirin (Halfprin) 81 mg DAILY PO Last administered on 08/16/16 08:21; Admin Dose 81 MG; Start 07/25/16 at 09:00; Status Future Hold Atorvastatin Calcium (Lipitor) 10 mg QHS PO Last administered on 08/15/16 21: 40; Admin Dose 10 MG; Start 07/24/16 at 21:00; Status Future Hold Cholecalciferol (Vitamin D) 400 units DAILY PO Last administered on 08/16/16 08:21; Admin Dose 400 UNITS; Start 07/25/16 at 09:00 Famotidine (Pepcid) 20 mg DAILY PO Last administered on 08/16/16 08:21; Admin Dose 20 MG; Start 07/25/16 at 09:00 Ferrous Sulfate (Ferrous Sulfate (Ec)) 325 mg BID PO Last administered on 08:21; Admin Dose 325 MG; Start 07/24/16 at 21:00 Acetaminophen/ Hydrocodone Bitart ([place] (5/325)) 1 tab Q4H PRN PO PAIN Last administered on 08/14/16 14:11; Admin Dose 1 TAB; Start 07/24/16 at 17:00 Isoniazid (Isoniazid) 300 mg DAILY PO Last administered on 08/16/16 08:21; Admin Dose 300 MG; Start 07/24/16 at 15:30 Pyridoxine HCl (Vitamin B6) 50 mg DAILY PO Last administered on 08/16/16 08:21 ; Admin Dose 50 MG; Start 07/25/16 at 09:00 Miscellaneous Information 1 ea NOTE XX ; Start 07/24/16 at 16:00 Glucose (Glutose) 15 gm Q15M PRN PO DECREASED GLUCOSE; Start 07/24/16 at 16:00 Glucose (Glutose) 22.5 gm Q15M PRN PO DECREASED GLUCOSE; Start 07/24/16 at 16: 00 Dextrose (D50w Syringe) 25 ml Q15M PRN IV DECREASED GLUCOSE Last administered on 08/17/16 19:48; Admin Dose 25 ML; Start 07/24/16 at 16:00 Dextrose (D50w Syringe) 50 ml Q15M PRN IV DECREASED GLUCOSE; Start 07/24/16 at 16:00 Glucagon (Glucagen) 1 mg Q15M PRN IM DECREASED GLUCOSE; Start 07/24/16 at 16:00 Glucose (Glutose) 15 gm Q15M PRN BUCCAL DECREASED GLUCOSE; Start 07/24/16 at 16 :00 Ondansetron HCl (Zofran Inj) 4 mg Q4 PRN IV nausea Last administered on 21:40; Admin Dose 4 MG; Start 07/24/16 at 17:00 Metoclopramide HCl (Reglan) 5 mg Q4H PRN IV NAUSEA Last administered on 16:40; Admin Dose 5 MG; Start 07/24/16 at 22:30 Diagnostic Test (Pha) (Accu-Chek) 1 ea 02 XX Last administered on 08/17/16 02: 00; Admin Dose 1 EA; Start 07/26/16 at 12:00 Pantoprazole (Protonix Tab) 40 mg DAILY@06 PO Last administered on 08/16/16 06 :05; Admin Dose 40 MG; Start 07/28/16 at 06:00 Hydralazine HCl (Apresoline) 20 mg Q4 PRN IV ELEVATED BLOOD PRESSURE Last administered on 08/04/16 16:35; Admin Dose 20 MG; Start 07/28/16 at 02:00 Polyethylene Glycol (Miralax) 17 gm DAILY PRN GTB CONSTIPATION Last administered on 07/28/16 20:22; Admin Dose 17 GM; Start 07/28/16 at 19:30 Lorazepam (Ativan) 1 mg Q4H PRN IV anxiety Last administered on 08/17/16 15:35 ; Admin Dose 1 MG; Start 07/29/16 at 06:30 Ethambutol HCl (Myambutol) 900 mg TuThSa@20 PO Last administered on 08/13/16 21:41; Admin Dose 900 MG; Start 07/31/16 at 20:00 Pyrazinamide (Pyrazinamide) 1,250 mg TuThSa@20 PO Last administered on 21:44; Admin Dose 1,250 MG; Start 07/31/16 at 20:00 Hydromorphone HCl (Dilaudid) 1 mg Q2H PRN IV pain Last administered on 13:56; Admin Dose 1 MG; Start 08/02/16 at 19:00 Zolpidem Tartrate (Ambien) 5 mg HS PRN PO INSOMNIA Last administered on 22:40; Admin Dose 5 MG; Start 08/08/16 at 21:00 Benazepril HCl (Lotensin) 10 mg BID PO ; Start 08/09/16 at 09:00; Status Future Hold Metoprolol Tartrate 25 mg 25 mg BID GTB Last administered on 08/14/16 20:42; Admin Dose 25 MG; Start 08/09/16 at 21:00 Caspofungin 50 mg/ Sodium Chloride 250 ml @ 250 mls/hr Q24H IVPB Last administered on 08/17/16 17:08; Admin Dose 250 MLS/HR; Start 08/10/16 at 17:00 Sodium Chloride 1,000 ml @ 50 mls/hr Q20H IV Last administered on 08/14/16 17 :48; Admin Dose 50 MLS/HR; Start 08/09/16 at 17:30; Status Future Hold Dopamine HCl/ Dextrose (D5W) 250 ml @ 1.71 mls/hr TITRATE IV Last administered on 08/11/16 15:07; Admin Dose 11.43 MLS/HR; Start 08/10/16 at 15:30 Acetaminophen (Tylenol Tab) 650 mg Q6H PRN PO PAIN AND OR ELEVATED TEMP Last administered on 08/12/16 00:54; Admin Dose 650 MG; Start 08/10/16 at 16:30 Clopidogrel Bisulfate 75 mg 75 mg DAILY PO Last administered on 08/16/16 08:21 ; Admin Dose 75 MG; Start 08/11/16 at 12:00; Status Future Hold Phenylephrine HCl 160 mg/Dextrose 500 ml @ 18.75 mls/ hr TITRATE IV Last administered on 08/17/16 05:43; Admin Dose 46.87 MLS/HR; Start 08/12/16 at 06: 00 Meropenem (Merrem 500 Mg/ 100 ml (Pmx)) 100 ml @ 200 mls/hr Q24H IVPB Last administered on 08/17/16 09:12; Admin Dose 200 MLS/HR; Start 08/13/16 at 09:00 Epoetin Tutu (Epogen (Esrd)) 3,000 units TuThSa@17 SC Last administered on 08/16 17:25; Admin Dose 3,000 UNITS; Start 08/14/16 at 17:00 Epoetin Tutu (Epogen (Esrd)) 2,000 units TuThSa@17 SC Last administered on 08/16 17:26; Admin Dose 2,000 UNITS; Start 08/14/16 at 17:00 Triglycerides (Mct Oil (Ped)) 10 ml Q6 PO Last administered on 08/17/16 18:11 ; Admin Dose 10 ML; Start 08/14/16 at 12:30 Levofloxacin (Levaquin) 750 mg TuThSa PO Last administered on 08/14/16 20:42; Admin Dose 750 MG; Start 08/14/16 at 20:00 Calcium Carbonate (Tums) 500 mg TID PO Last administered on 08/17/16 13:04; Admin Dose 500 MG; Start 08/15/16 at 09:00 Insulin Glargine (Lantus) 15 unit DAILY SC Last administered on 08/17/16 09:14 ; Admin Dose 15 UNIT; Start 08/16/16 at 09:00 Midodrine 5 mg 5 mg BID@,17 PO Last administered on 08/17/16 17:09; Admin Dose 5 MG; Start 08/15/16 at 17:00 Vasopressin 60 unit/Dextrose 60 ml @ 1.2 mls/hr Q12H IV Last administered on 23:49; Admin Dose 2.4 MLS/HR; Start 08/16/16 at 09:30 Norepinephrine 32 mg/Dextrose 250 ml @ 0.46 mls/hr TITRATE IV Last administered on 08/16/16 18:22; Admin Dose 14.06 MLS/HR; Start 08/16/16 at 13: 30 Epinephrine 4 mg/ Sodium Chloride 250 ml @ 3.75 mls/hr TITRATE IV ; Start 08/16 at 14:00 Sodium Bicarbonate 100 meq/Dextrose 1,100 ml @ 150 mls/hr Q7H20M IV Last administered on 08/17/16 19:30; Admin Dose 150 MLS/HR; Start 08/16/16 at 18:30 Vancomycin HCl 250 ml @ 125 mls/hr Q96H IVPB ; Start 08/18/16 at 16:00 Amiodarone HCl/ Dextrose (Cordarone Iv/ D5W) 500 ml @ 0 mls/hr Q0M IV Last administered on 08/17/16 01:06; Admin Dose 33.4 MLS/HR; Start 08/17/16 at 00:30 ; Stop 08/18/16 at 00:29 YUMKIO NICHOLSON M.D. Aug 17, 2016 20:54
[2016-08-17] MEDS ORDERED: SODIUM BICARBONATE (IV ADD) 100 MEQ in DEXTROSE 10% 1,000 ML IV SCH (22:00)
[2016-08-17] MEDS: NORepinephrine 32 MG in DEXTROSE 5% 218 ML IV SCH (22:11)
[2016-08-17] MEDS: SODIUM BICARBONATE (IV ADD) 100 MEQ in DEXTROSE 10% 1,000 ML IV SCH (22:18)
[2016-08-17 22:31] LABS: POTASSIUM 3.4 mmol/L (3.5-5.1)
[2016-08-17 22:34] LABS: CREATININE 4.43 mg/dl (0.61-1.24)
[2016-08-18] VITALS (99 sets, daily range): BP systolic 72–197; BP diastolic 25–99; PULSE 15–130; RESP 13–32
[2016-08-18] MEDS: MED CHAIN TRIGLYCERIDES (PO SYG) PO SCH ×5 (01:11→23:27)
[2016-08-18] MEDS: ACCUCHECK 2 AM XX SCH (01:31)
[2016-08-18] MEDS: LORAZEPAM 2 MG INJ IV PRN ×2 (01:58→23:27)
[2016-08-18 04:30] LABS: ADD SCAN DIFF NO
[2016-08-18 04:34] LABS: ABNORMAL IP MESSAGE 1; BASOPHILS % 0.2 % (0.0-2.0); EOSINOPHILS # 0.1 10^3/ul (0.0-0.5); EOSINOPHILS % 0.8 % (0.0-7.0); HEMATOCRIT 18.8 % (42.0-52.0); LYMPHOCYTES # 0.3 10^3/ul (0.8-2.9); LYMPHOCYTES % 2.6 % (15.0-51.0); MEAN CORPUSCULAR HEMOGLOBIN 31.3 pg (29.0-33.0); MEAN CORPUSCULAR HGB CONC 35.6 g/dl (32.0-37.0); MEAN CORPUSCULAR VOLUME 87.9 fl (82.0-101.0); MONOCYTE # 0.7 10^3/ul (0.3-0.9); MONOCYTES % 5.1 % (0.0-11.0); NEUTROPHIL # 11.9 10^3/ul (1.6-7.5); NEUTROPHILS % 89.8 % (39.0-77.0); RED BLOOD COUNT 2.14 10^6/ul (4.70-6.10); RED CELL DISTRIBUTION WIDTH 17.9 % (11.5-14.5); WHITE BLOOD COUNT 13.3 10^3/ul (4.8-10.8)
[2016-08-18 04:52] LABS: MAGNESIUM 1.8 mg/dl (1.7-2.5); PHOSPHORUS 3.3 mg/dl (2.5-4.9)
[2016-08-18 04:53] LABS: HEMOGLOBIN 6.7 g/dl (14.0-18.0); PLATELET COUNT 27 10^3/UL (140-415)
[2016-08-18 04:55] LABS: ALBUMIN 2.4 g/dl (3.3-4.9); ALBUMIN/GLOBULIN RATIO 1.71; BILIRUBIN,DIRECT 2.4 mg/dl (0.00-0.20); BILIRUBIN,INDIRECT 1.9 mg/dl (0-1.1); BILIRUBIN,TOTAL 4.3 mg/dl (0.2-1.3); CREATININE 4.42 mg/dl (0.61-1.24); POTASSIUM 3.5 mmol/L (3.5-5.1); TOTAL PROTEIN 3.8 g/dl (6.1-8.1)
[2016-08-18 04:57] LABS: CALCIUM 5.5 mg/dl (8.4-10.2)
[2016-08-18] MEDS: PANTOPRAZOLE (EC) 40 MG TAB PO SCH (05:24)
[2016-08-18] MEDS: SODIUM BICARBONATE (IV ADD) 100 MEQ in DEXTROSE 10% 1,000 ML IV SCH ×3 (05:41→14:46)
[2016-08-18] MEDS: PANTOPRAZOLE 40 MG INJ IV SCH (05:41)
[2016-08-18] MEDS: PHENYLephrine 160 MG in DEXTROSE 5% 484 ML IV SCH (08:07)
[2016-08-18] MEDS: METOPROLOL 25 MG TAB GTB SCH ×2 (09:00→21:00)
--- NOTE | 2016-08-18 09:14 | CONS ---
DATE OF ADMISSION: 07/24/2016 DATE OF CONSULTATION: SUBJECTIVE: The patient still is intubated. On discussion with nursing, patient has some rectal bl eeding. He is still on 2 vasopressors, with blood pressure being around 90/60, in that range. No N G bleeding. Pulse is around 110 to 120. PHYSICAL EXAMINATION: CARDIOVASCULAR: Heart sounds well heard. RESPIRATORY: He does have a chest tube in the right side draining yellow whitish fluid. ABDOMEN: Soft. LABORATORY WORKUP: WBC count 13,300, hemoglobin 6.7. Platelet count 27,000, potassium 3.5, sodium 123, creatinine 4.42, bilirubin 4.3, direct 2.0, AST 171. CLINICAL IMPRESSION: The patient has respiratory failure, intubated. From the gastrointestinal ble eding standpoint, he continues to have lower gastrointestinal bleeding. The hemoglobin is 6.7, plat elet count is low. His BUN and creatinine is up. He is in renal failure. The patient on dialysis. PLAN: He needs to have GI bleeding scan, but is unstable to have this study done, and meanwhile we will correct the prothrombin time, correct the hemoglobin, correct the low platelet count. We will continue to observe the patient closely. The patient is supposed to be transferred to [facility] for a thoracic repair. Dictated By: CLAUDIO HOWELL/MANJIT Conf#: [id number] DID#: [id number]
[2016-08-18] MEDS: VASOPRESSIN 60 UNIT in DEXTROSE 5% 57 ML IV SCH ×2 (09:30→21:26)
[2016-08-18 09:38] LABS: INR 1.7; PROTIME 20.1 Sec (12.2-14.2); PT RATIO 1.6
--- NOTE | 2016-08-18 10:12 | CONS ---
Date/Time of Note Date/Time of Note DATE: 08/18/16 TIME: 10:06 Consult Date/Type/Reason Admit Date/Time Jul 24, 2016 at 12:53 Initial Consult Date 07/25/16 Type of Consultation: pulmonary ICU Ordering Provider: EVA COX MD Subjective Patient remains intubated on mechanical ventilation Continues to vasopressors Opens eyes follows simple commands off sedation Significant drainage from chest tube No evidence of rectal bleeding acute GI bleed Objective Vital Signs Date Time Temp Pulse Resp B/P Pulse Ox O2 Delivery O2 Flow Rate FiO2 08/18/16 09:45 122 20 107/70 100 Mechanical Ventilator 08/18/16 07:50 40 08/18/16 07:45 98.6 08/16/16 11:00 2.0 Intake and Output 08/17/16 08/17/16 08/18/16 15:00 23:00 07:00 Intake Total 2525.74 ml 2665.11 ml 1255.57 ml Output Total 1040 ml 330 ml 2000 ml Balance 1485.74 ml 2335.11 ml -744.43 ml Exam PHYSICAL EXAMINATION GENERAL: Elderly gentleman, intubated on mechanical ventilation, VITAL SIGNS: see below. HEENT: Pupils equal, round, and reactive to light. CARDIAC: S1, S2, tachycardia. CHEST: Diminished air entry bilaterally. ABDOMEN: Mildly distended, bowel sounds present no guarding or rebound EXTREMITIES: No cyanosis, clubbing edema +1 NEUROLOGIC: No focal deficits. Results/Medications Result Diagram: 08/18/16 0330 08/18/16 0330 Results 24 hrs Chest x-ray Small right apical pneumothorax Laboratory Tests Test 08/17/16 12:46 08/17/16 17:58 08/17/16 18:04 08/17/16 18:22 Bedside Glucose 109 < 13 *L 24 *L 102 Test 08/17/16 18:46 08/17/16 19:07 08/17/16 19:31 08/17/16 19:35 Bedside Glucose 63 L 147 53 L 72 Test 08/17/16 20:04 08/17/16 20:18 08/17/16 21:35 08/17/16 21:57 Bedside Glucose 123 103 48 *L 127 Test 08/17/16 22:00 08/17/16 22:15 08/18/16 01:29 08/18/16 03:30 Sodium Level 125 L 123 L Potassium Level 3.4 L 3.5 Chloride Level 86 L 88 L Carbon Dioxide Level 25 29 Anion Gap 17 H 10 # Blood Urea Nitrogen 43 H 44 H Creatinine 4.43 H 4.42 H Glucose Level 101 # 69 #L Calcium Level 6.0 L 5.5 *L Bedside Glucose 106 75 White Blood Count 13.3 #H Red Blood Count 2.14 #L Hemoglobin 6.7 #*L Hematocrit 18.8 #L Mean Corpuscular Volume 87.9 Mean Corpuscular Hemoglobin 31.3 Mean Corpuscular Hemoglobin Concent 35.6 Red Cell Distribution Width 17.9 H Platelet Count 27 #*L Mean Platelet Volume Neutrophils % 89.8 H Lymphocytes % 2.6 L Monocytes % 5.1 Eosinophils % 0.8 Basophils % 0.2 Nucleated Red Blood Cells % 0.0 Neutrophils # 11.9 H Lymphocytes # 0.3 L Monocytes # 0.7 Eosinophils # 0.1 Basophils # 0.0 Nucleated Red Blood Cells # 0.0 Phosphorus Level 3.3 Magnesium Level 1.8 Total Bilirubin 4.3 #H Direct Bilirubin 2.40 #H Indirect Bilirubin 1.9 H Aspartate Amino Transf (AST/SGOT) 171 #H Alanine Aminotransferase (ALT/SGPT) 35 Alkaline Phosphatase 65 Total Protein 3.8 L Albumin 2.4 L Globulin 1.40 Albumin/Globulin Ratio 1.71 Test 08/18/16 07:29 08/18/16 09:03 08/18/16 09:10 08/18/16 10:02 Bedside Glucose 210 193 Prothrombin Time 20.1 #H Prothrombin Time Ratio 1.6 INR International Normalized Ratio 1.70 Lab Scanned Report REFERENCE LAB Medications Current Medications Aspirin (Halfprin) 81 mg DAILY PO Last administered on 08/16/16 08:21; Admin Dose 81 MG; Start 07/25/16 at 09:00; Status Future Hold Atorvastatin Calcium (Lipitor) 10 mg QHS PO Last administered on 08/15/16 21: 40; Admin Dose 10 MG; Start 07/24/16 at 21:00; Status Future Hold Cholecalciferol (Vitamin D) 400 units DAILY PO Last administered on 08/16/16 08:21; Admin Dose 400 UNITS; Start 07/25/16 at 09:00 Famotidine (Pepcid) 20 mg DAILY PO Last administered on 08/16/16 08:21; Admin Dose 20 MG; Start 07/25/16 at 09:00 Ferrous Sulfate (Ferrous Sulfate (Ec)) 325 mg BID PO Last administered on 08:21; Admin Dose 325 MG; Start 07/24/16 at 21:00 Acetaminophen/ Hydrocodone Bitart ([place] (5/325)) 1 tab Q4H PRN PO PAIN Last administered on 08/14/16 14:11; Admin Dose 1 TAB; Start 07/24/16 at 17:00 Isoniazid (Isoniazid) 300 mg DAILY PO Last administered on 08/16/16 08:21; Admin Dose 300 MG; Start 07/24/16 at 15:30 Pyridoxine HCl (Vitamin B6) 50 mg DAILY PO Last administered on 08/16/16 08:21 ; Admin Dose 50 MG; Start 07/25/16 at 09:00 Miscellaneous Information 1 ea NOTE XX ; Start 07/24/16 at 16:00 Glucose (Glutose) 15 gm Q15M PRN PO DECREASED GLUCOSE; Start 07/24/16 at 16:00 Glucose (Glutose) 22.5 gm Q15M PRN PO DECREASED GLUCOSE; Start 07/24/16 at 16: 00 Dextrose (D50w Syringe) 25 ml Q15M PRN IV DECREASED GLUCOSE Last administered on 08/17/16 19:48; Admin Dose 25 ML; Start 07/24/16 at 16:00 Dextrose (D50w Syringe) 50 ml Q15M PRN IV DECREASED GLUCOSE Last administered on 08/17/16 21:38; Admin Dose 50 ML; Start 07/24/16 at 16:00 Glucagon (Glucagen) 1 mg Q15M PRN IM DECREASED GLUCOSE; Start 07/24/16 at 16:00 Glucose (Glutose) 15 gm Q15M PRN BUCCAL DECREASED GLUCOSE; Start 07/24/16 at 16 :00 Ondansetron HCl (Zofran Inj) 4 mg Q4 PRN IV nausea Last administered on 21:40; Admin Dose 4 MG; Start 07/24/16 at 17:00 Metoclopramide HCl (Reglan) 5 mg Q4H PRN IV NAUSEA Last administered on 16:40; Admin Dose 5 MG; Start 07/24/16 at 22:30 Hydralazine HCl (Apresoline) 20 mg Q4 PRN IV ELEVATED BLOOD PRESSURE Last administered on 08/04/16 16:35; Admin Dose 20 MG; Start 07/28/16 at 02:00 Polyethylene Glycol (Miralax) 17 gm DAILY PRN GTB CONSTIPATION Last administered on 07/28/16 20:22; Admin Dose 17 GM; Start 07/28/16 at 19:30 Lorazepam (Ativan) 1 mg Q4H PRN IV anxiety Last administered on 08/18/16 01:58 ; Admin Dose 1 MG; Start 07/29/16 at 06:30 Ethambutol HCl (Myambutol) 900 mg TuThSa@20 PO Last administered on 08/13/16 21:41; Admin Dose 900 MG; Start 07/31/16 at 20:00 Pyrazinamide (Pyrazinamide) 1,250 mg TuThSa@20 PO Last administered on 21:44; Admin Dose 1,250 MG; Start 07/31/16 at 20:00 Hydromorphone HCl (Dilaudid) 1 mg Q2H PRN IV pain Last administered on 13:56; Admin Dose 1 MG; Start 08/02/16 at 19:00 Zolpidem Tartrate (Ambien) 5 mg HS PRN PO INSOMNIA Last administered on 22:40; Admin Dose 5 MG; Start 08/08/16 at 21:00 Benazepril HCl (Lotensin) 10 mg BID PO ; Start 08/09/16 at 09:00; Status Future Hold Metoprolol Tartrate 25 mg 25 mg BID GTB Last administered on 08/14/16 20:42; Admin Dose 25 MG; Start 08/09/16 at 21:00 Caspofungin 50 mg/ Sodium Chloride 250 ml @ 250 mls/hr Q24H IVPB Last administered on 08/17/16 17:08; Admin Dose 250 MLS/HR; Start 08/10/16 at 17:00 Sodium Chloride 1,000 ml @ 50 mls/hr Q20H IV Last administered on 08/14/16 17 :48; Admin Dose 50 MLS/HR; Start 08/09/16 at 17:30; Status Future Hold Dopamine HCl/ Dextrose (D5W) 250 ml @ 1.71 mls/hr TITRATE IV Last administered on 08/11/16 15:07; Admin Dose 11.43 MLS/HR; Start 08/10/16 at 15:30 Acetaminophen (Tylenol Tab) 650 mg Q6H PRN PO PAIN AND OR ELEVATED TEMP Last administered on 08/12/16 00:54; Admin Dose 650 MG; Start 08/10/16 at 16:30 Clopidogrel Bisulfate 75 mg 75 mg DAILY PO Last administered on 08/16/16 08:21 ; Admin Dose 75 MG; Start 08/11/16 at 12:00; Status Future Hold Phenylephrine HCl 160 mg/Dextrose 500 ml @ 18.75 mls/ hr TITRATE IV Last administered on 08/18/16 08:07; Admin Dose 6.56 MLS/HR; Start 08/12/16 at 06:00 Meropenem (Merrem 500 Mg/ 100 ml (Pmx)) 100 ml @ 200 mls/hr Q24H IVPB Last administered on 08/17/16 09:12; Admin Dose 200 MLS/HR; Start 08/13/16 at 09:00 Epoetin Tutu (Epogen (Esrd)) 3,000 units TuThSa@17 SC Last administered on 08/16 17:25; Admin Dose 3,000 UNITS; Start 08/14/16 at 17:00 Epoetin Tutu (Epogen (Esrd)) 2,000 units TuThSa@17 SC Last administered on 08/16 17:26; Admin Dose 2,000 UNITS; Start 08/14/16 at 17:00 Triglycerides (Mct Oil (Ped)) 10 ml Q6 PO Last administered on 08/18/16 05:21 ; Admin Dose 10 ML; Start 08/14/16 at 12:30 Levofloxacin (Levaquin) 750 mg TuThSa PO Last administered on 08/14/16 20:42; Admin Dose 750 MG; Start 08/14/16 at 20:00 Calcium Carbonate (Tums) 500 mg TID PO Last administered on 08/17/16 13:04; Admin Dose 500 MG; Start 08/15/16 at 09:00 Midodrine 5 mg 5 mg BID@,17 PO Last administered on 4/16/17at 17:09; Admin Dose 5 MG; Start 08/15/16 at 17:00 Vasopressin 60 unit/Dextrose 60 ml @ 1.2 mls/hr Q12H IV Last administered on 23:49; Admin Dose 2.4 MLS/HR; Start 08/16/16 at 09:30 Norepinephrine 32 mg/Dextrose 250 ml @ 0.46 mls/hr TITRATE IV Last administered on 08/17/16 22:11; Admin Dose 2.34 MLS/HR; Start 08/16/16 at 13:30 Epinephrine 4 mg/ Sodium Chloride 250 ml @ 3.75 mls/hr TITRATE IV ; Start 08/16 at 14:00 Vancomycin HCl 250 ml @ 125 mls/hr Q96H IVPB ; Start 08/18/16 at 16:00 Sodium Bicarbonate/ Dextrose (Na Bicarb/D10w) 1,100 ml @ 150 mls/hr Q7H20M IV Last administered on 08/18/16 05:41; Admin Dose 150 MLS/HR; Start 08/17/16 at 22:00 Pantoprazole (Protonix Iv) 40 mg DAILY@06 IV Last administered on 08/18/16 05: 41; Admin Dose 40 MG; Start 08/18/16 at 06:00 Insulin Glargine (Lantus) 15 unit 08 SC ; Start 08/18/16 at 08:00 Insulin Aspart (Novolog Insulin Pen) NOVOLOG *MILD* ALGORI... Q4 SC ; Start at 08:00 Assessment/Plan Chief Complaint/Hosp Course Assessment 1. Recurrent right pleural effusion consistent with empyema, cavitary lesions in the lung noted following thoracentesis. 2. Recent VATS decortication now requiring repeat procedure, now with evidence of chylothorax 3. Coronary artery disease on antiplatelet agents 4. End-stage renal failure on hemodialysis 5. Severe anemia likely secondary to GI bleed Plan 1. Transfusion of 3 units packed red blood cells with hemodialysis 2. Wean off vasopressors as tolerated 3. Continue chest tube drainage to suction 4. Continue mechanical ventilation 5. DVT GI prophylaxis 6. ID recommendations and antibiotics Disposition Pending transfer to [facility] when more stable Problems: MATILDE DEWEY MD, [facility] Aug 18, 2016 10:11
[2016-08-18] MEDS: INSULIN GLARGINE [LANtus] 3 ML PEN SC SCH (10:22)
[2016-08-18] MEDS: INSULIN ASPART [NOVOLOG] 3 ML PEN SC SCH ×4 (10:22→21:00)
[2016-08-18] MEDS: PYRIDOXINE 50 MG TAB PO SCH (10:38)
[2016-08-18] MEDS: FERROUS SULFATE (EC) 325 MG TAB PO SCH ×2 (10:38→21:26)
[2016-08-18] MEDS: CALCIUM CARBONATE 500 MG CHEW TAB PO SCH ×3 (10:38→21:26)
[2016-08-18] MEDS: CHOLECALCIFEROL 400 UNITS TAB PO SCH (10:38)
[2016-08-18] MEDS: FAMOTIDINE 20 MG TAB PO SCH (10:38)
[2016-08-18] MEDS: ISONIAZID 300 MG TAB PO SCH (10:38)
[2016-08-18] MEDS: MIDODRINE 5 MG TAB PO SCH ×2 (10:43→17:00)
[2016-08-18] MEDS: MEROPENEM 500 MG/100 ML (PMX) 100 ML IVPB SCH (10:45)
--- NOTE | 2016-08-18 11:41 | PN ---
Date/Time of Note Date/Time of Note DATE: 08/18/16 TIME: 11:30 Assessment/Plan VTE Prophylaxis VTE Prophylaxis Intervention: SCD's Lines/Catheters IV Catheter Type (from [facility]): Lukasz cath with pigtail Urinary Cath still in place: No Assessment/Plan Chief Complaint/Hosp Course Assessment and plan: - S/ P PEA arrest on 08/16. Dr. De Santiago is following and cardiology consultation. - Hypovolemia vs cardiogenic shock, continue IV fluids, pressors, ICU care. - Anemia of acute blood loss, transfuse blood, continue to monitor hemoglobin and hematocrit. Dr. Martinez is following in hematology consultation. - Recurrent right pleural effusion consistent with empyema, cavitary lesions, status post right thoracotomy and pulmonary decortication on 08/04. Chylothorax, would need embolization of the thoracic duct, pending transfer to [facility]. - GI bleed, Dr Borjas is following in GI consult. -Hemoptysis, resolved. Dr. Dale is following in pulmonology consultation. Dr. Caitlin balderas is following an infection disease consultation. -Right former chest tube site bleeding, resolved. Dr. Martinez is following in thoracic surgery consultation. 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 - End-stage renal disease, continue hemodialysis. Dr. Saunders is following in nephrology consultation. - Diabetes mellitus type 2, continue NovoLog per mild algorithm sliding scale. - Hypertension. Continue benazepril metoprolol hydralazine Procardia - Coronary artery disease, status post coronary artery bypass graft, s/p percutaneous transluminal coronary angioplasty and stent placement to left main and left anterior descending in 2014. - Permanent pacemaker. No acute issues. - Dyslipidemia. Further recommendations based on clinical course. Plan of care discussed with Dr. Price. Problems: Subjective 24 Hr Interval Summary Free Text/Dictation Pt is intubated , on vent support, multiple pressors. Exam/Review of Systems Vital Signs Vitals Vital Signs Date Time Temp Pulse Resp B/P Pulse Ox O2 Delivery O2 Flow Rate FiO2 08/18/16 09:45 122 20 107/70 100 Mechanical Ventilator 08/18/16 07:50 40 08/18/16 07:45 98.6 08/16/16 11:00 2.0 Intake and Output 08/17/16 08/17/16 08/18/16 15:00 23:00 07:00 Intake Total 2525.74 ml 2665.11 ml 1255.57 ml Output Total 1040 ml 330 ml 2000 ml Balance 1485.74 ml 2335.11 ml -744.43 ml Exam Constitutional: orally intubated Psych: no complaints Head: atraumatic, normocephalic ENMT: nl external ears & nose Neck: non-tender, supple Respiratory: clear to auscultation, normal air movement Cardiovascular: other (Left chest permanent pacemaker), regular rate and rhythm Gastrointestinal: bowel sounds, soft Extremities: normal pulses Neurological: MONKEY BREEDER II-XII intact R CT Results Result Diagram: 08/18/16 0330 08/18/16 0330 Results 24 hrs Laboratory Tests Test 08/17/16 12:46 08/17/16 17:58 08/17/16 18:04 08/17/16 18:22 Bedside Glucose 109 < 13 *L 24 *L 102 Test 08/17/16 18:46 08/17/16 19:07 08/17/16 19:31 08/17/16 19:35 Bedside Glucose 63 L 147 53 L 72 Test 08/17/16 20:04 08/17/16 20:18 08/17/16 21:35 08/17/16 21:57 Bedside Glucose 123 103 48 *L 127 Test 08/17/16 22:00 08/17/16 22:15 08/18/16 01:29 08/18/16 03:30 Sodium Level 125 L 123 L Potassium Level 3.4 L 3.5 Chloride Level 86 L 88 L Carbon Dioxide Level 25 29 Anion Gap 17 H 10 # Blood Urea Nitrogen 43 H 44 H Creatinine 4.43 H 4.42 H Glucose Level 101 # 69 #L Calcium Level 6.0 L 5.5 *L Bedside Glucose 106 75 White Blood Count 13.3 #H Red Blood Count 2.14 #L Hemoglobin 6.7 #*L Hematocrit 18.8 #L Mean Corpuscular Volume 87.9 Mean Corpuscular Hemoglobin 31.3 Mean Corpuscular Hemoglobin Concent 35.6 Red Cell Distribution Width 17.9 H Platelet Count 27 #*L Mean Platelet Volume Neutrophils % 89.8 H Lymphocytes % 2.6 L Monocytes % 5.1 Eosinophils % 0.8 Basophils % 0.2 Nucleated Red Blood Cells % 0.0 Neutrophils # 11.9 H Lymphocytes # 0.3 L Monocytes # 0.7 Eosinophils # 0.1 Basophils # 0.0 Nucleated Red Blood Cells # 0.0 Phosphorus Level 3.3 Magnesium Level 1.8 Total Bilirubin 4.3 #H Direct Bilirubin 2.40 #H Indirect Bilirubin 1.9 H Aspartate Amino Transf (AST/SGOT) 171 #H Alanine Aminotransferase (ALT/SGPT) 35 Alkaline Phosphatase 65 Total Protein 3.8 L Albumin 2.4 L Globulin 1.40 Albumin/Globulin Ratio 1.71 Test 08/18/16 07:29 08/18/16 09:03 08/18/16 09:10 08/18/16 10:02 Bedside Glucose 210 193 Prothrombin Time 20.1 #H Prothrombin Time Ratio 1.6 INR International Normalized Ratio 1.70 Lab Scanned Report REFERENCE LAB Test 08/18/16 10:36 Lab Scanned Report REFERENCE LAB Medications Medications Current Medications Aspirin (Halfprin) 81 mg DAILY PO Last administered on 08/16/16 08:21; Admin Dose 81 MG; Start 07/25/16 at 09:00; Status Future Hold Atorvastatin Calcium (Lipitor) 10 mg QHS PO Last administered on 08/15/16 21: 40; Admin Dose 10 MG; Start 07/24/16 at 21:00; Status Future Hold Cholecalciferol (Vitamin D) 400 units DAILY PO Last administered on 08/18/16 10:38; Admin Dose 400 UNITS; Start 07/25/16 at 09:00 Famotidine (Pepcid) 20 mg DAILY PO Last administered on 08/18/16 10:38; Admin Dose 20 MG; Start 07/25/16 at 09:00 Ferrous Sulfate (Ferrous Sulfate (Ec)) 325 mg BID PO Last administered on 10:38; Admin Dose 325 MG; Start 07/24/16 at 21:00 Acetaminophen/ Hydrocodone Bitart ([place] (5/325)) 1 tab Q4H PRN PO PAIN Last administered on 08/14/16 14:11; Admin Dose 1 TAB; Start 07/24/16 at 17:00 Isoniazid (Isoniazid) 300 mg DAILY PO Last administered on 08/18/16 10:38; Admin Dose 300 MG; Start 07/24/16 at 15:30 Pyridoxine HCl (Vitamin B6) 50 mg DAILY PO Last administered on 08/18/16 10:38 ; Admin Dose 50 MG; Start 07/25/16 at 09:00 Miscellaneous Information 1 ea NOTE XX ; Start 07/24/16 at 16:00 Glucose (Glutose) 15 gm Q15M PRN PO DECREASED GLUCOSE; Start 07/24/16 at 16:00 Glucose (Glutose) 22.5 gm Q15M PRN PO DECREASED GLUCOSE; Start 07/24/16 at 16: 00 Dextrose (D50w Syringe) 25 ml Q15M PRN IV DECREASED GLUCOSE Last administered on 08/17/16 19:48; Admin Dose 25 ML; Start 07/24/16 at 16:00 Dextrose (D50w Syringe) 50 ml Q15M PRN IV DECREASED GLUCOSE Last administered on 08/17/16 21:38; Admin Dose 50 ML; Start 07/24/16 at 16:00 Glucagon (Glucagen) 1 mg Q15M PRN IM DECREASED GLUCOSE; Start 07/24/16 at 16:00 Glucose (Glutose) 15 gm Q15M PRN BUCCAL DECREASED GLUCOSE; Start 07/24/16 at 16 :00 Ondansetron HCl (Zofran Inj) 4 mg Q4 PRN IV nausea Last administered on 21:40; Admin Dose 4 MG; Start 07/24/16 at 17:00 Metoclopramide HCl (Reglan) 5 mg Q4H PRN IV NAUSEA Last administered on 16:40; Admin Dose 5 MG; Start 07/24/16 at 22:30 Hydralazine HCl (Apresoline) 20 mg Q4 PRN IV ELEVATED BLOOD PRESSURE Last administered on 08/04/16 16:35; Admin Dose 20 MG; Start 07/28/16 at 02:00 Polyethylene Glycol (Miralax) 17 gm DAILY PRN GTB CONSTIPATION Last administered on 07/28/16 20:22; Admin Dose 17 GM; Start 07/28/16 at 19:30 Lorazepam (Ativan) 1 mg Q4H PRN IV anxiety Last administered on 08/18/16 01:58 ; Admin Dose 1 MG; Start 07/29/16 at 06:30 Ethambutol HCl (Myambutol) 900 mg TuThSa@20 PO Last administered on 08/13/16 21:41; Admin Dose 900 MG; Start 07/31/16 at 20:00 Pyrazinamide (Pyrazinamide) 1,250 mg TuThSa@20 PO Last administered on 21:44; Admin Dose 1,250 MG; Start 07/31/16 at 20:00 Hydromorphone HCl (Dilaudid) 1 mg Q2H PRN IV pain Last administered on 13:56; Admin Dose 1 MG; Start 08/02/16 at 19:00 Zolpidem Tartrate (Ambien) 5 mg HS PRN PO INSOMNIA Last administered on 22:40; Admin Dose 5 MG; Start 08/08/16 at 21:00 Benazepril HCl (Lotensin) 10 mg BID PO ; Start 08/09/16 at 09:00; Status Future Hold Metoprolol Tartrate 25 mg 25 mg BID GTB Last administered on 08/14/16 20:42; Admin Dose 25 MG; Start 08/09/16 at 21:00 Caspofungin 50 mg/ Sodium Chloride 250 ml @ 250 mls/hr Q24H IVPB Last administered on 08/17/16 17:08; Admin Dose 250 MLS/HR; Start 08/10/16 at 17:00 Sodium Chloride 1,000 ml @ 50 mls/hr Q20H IV Last administered on 08/14/16 17 :48; Admin Dose 50 MLS/HR; Start 08/09/16 at 17:30; Status Future Hold Dopamine HCl/ Dextrose (D5W) 250 ml @ 1.71 mls/hr TITRATE IV Last administered on 08/11/16 15:07; Admin Dose 11.43 MLS/HR; Start 08/10/16 at 15:30 Acetaminophen (Tylenol Tab) 650 mg Q6H PRN PO PAIN AND OR ELEVATED TEMP Last administered on 08/12/16 00:54; Admin Dose 650 MG; Start 08/10/16 at 16:30 Clopidogrel Bisulfate 75 mg 75 mg DAILY PO Last administered on 08/16/16 08:21 ; Admin Dose 75 MG; Start 08/11/16 at 12:00; Status Future Hold Phenylephrine HCl 160 mg/Dextrose 500 ml @ 18.75 mls/ hr TITRATE IV Last administered on 08/18/16 08:07; Admin Dose 6.56 MLS/HR; Start 08/12/16 at 06:00 Meropenem (Merrem 500 Mg/ 100 ml (Pmx)) 100 ml @ 200 mls/hr Q24H IVPB Last administered on 08/18/16 10:45; Admin Dose 200 MLS/HR; Start 08/13/16 at 09:00 Epoetin Tutu (Epogen (Esrd)) 3,000 units TuThSa@17 SC Last administered on 08/16 17:25; Admin Dose 3,000 UNITS; Start 08/14/16 at 17:00 Epoetin Tutu (Epogen (Esrd)) 2,000 units TuThSa@17 SC Last administered on 08/16 17:26; Admin Dose 2,000 UNITS; Start 08/14/16 at 17:00 Triglycerides (Mct Oil (Ped)) 10 ml Q6 PO Last administered on 08/18/16 05:21 ; Admin Dose 10 ML; Start 08/14/16 at 12:30 Levofloxacin (Levaquin) 750 mg TuThSa PO Last administered on 08/14/16 20:42; Admin Dose 750 MG; Start 08/14/16 at 20:00 Calcium Carbonate (Tums) 500 mg TID PO Last administered on 08/18/16 10:38; Admin Dose 500 MG; Start 08/15/16 at 09:00 Midodrine 5 mg 5 mg BID@17 PO Last administered on 08/18/16 10:43; Admin Dose 5 MG; Start 08/15/16 at 17:00 Vasopressin 60 unit/Dextrose 60 ml @ 1.2 mls/hr Q12H IV Last administered on 23:49; Admin Dose 2.4 MLS/HR; Start 08/16/16 at 09:30 Norepinephrine 32 mg/Dextrose 250 ml @ 0.46 mls/hr TITRATE IV Last administered on 08/17/16 22:11; Admin Dose 2.34 MLS/HR; Start 08/16/16 at 13:30 Epinephrine 4 mg/ Sodium Chloride 250 ml @ 3.75 mls/hr TITRATE IV ; Start 08/16 at 14:00 Vancomycin HCl 250 ml @ 125 mls/hr Q96H IVPB ; Start 08/18/16 at 16:00 Sodium Bicarbonate/ Dextrose (Na Bicarb/D10w) 1,100 ml @ 150 mls/hr Q7H20M IV Last administered on 08/18/16 05:41; Admin Dose 150 MLS/HR; Start 08/17/16 at 22:00 Pantoprazole (Protonix Iv) 40 mg DAILY@06 IV Last administered on 08/18/16 05: 41; Admin Dose 40 MG; Start 08/18/16 at 06:00 Insulin Glargine (Lantus) 15 unit 08 SC ; Start 08/18/16 at 08:00 Insulin Aspart (Novolog Insulin Pen) NOVOLOG *MILD* ALGORI... Q4 SC ; Start at 08:00 CECILIA DAMICO Aug 18, 2016 11:41
--- NOTE | 2016-08-18 13:10 | CONS ---
Date/Time of Note Date/Time of Note DATE: 08/18/16 TIME: 13:02 Assessment/Plan Assessment/Plan Chief Complaint/Hosp Course IMPRESSION: 1. Abnormal electrocardiogram, assess for acute coronary syndrome with recurrent chest pain now and recently negative stress test.-negative troponin x 3 2. History of a percutaneous transluminal coronary angioplasty and stent placement to left main and left anterior descending in 2014. 3. History of coronary artery bypass graft surgery. 4. Video assisted thoracoscopic surgery pleurodesis with leakage from the chest tube site.- now s/p repeat VATS/pleurodesis with CT with significant outpaut over the last 8 hours 5. Shortness of breath. 6. End-stage renal disease on hemodialysis. 7. Tuberculosis, on therapy. 8. Hypotension-recurrent today 9. Diabetes mellitus. 10. Dyslipidemia. 11. Anemia-requiring transfusions/acutely decreasing 12.Empyema/cavitary lesions by CT 13.PEA aresst 08/16/16 requiring intubation 14.Resp failure s/p intubation 15.Tachycardic-S Tach ? due to anemia 16.GI bleed 17.Chylothorax-will require treatment at [facility] Recc: -Tele -Continue levo and thomas and wean as tolerated starting with levo given tachycardia -Hold plavix/asa given worsening anemia/ongoing bleeding and transfuse PRBC's -HD for volume removal as tolerated only -continue TB treatment/broad spectrum abx's -Follow CT output closely with ongoing surgical eval -Continue abx's and f/u cx data -Continue statin -Continue broad spectrum abx's and f/u cx data closely -TRansfer to [facility] when stable/bed available Problems: Consultation Date/Type/Reason Admit Date/Time Jul 24, 2016 at 12:53 Initial Consult Date 07/24/16 Type of Consultation: Cardiology Reason for Consultation hypotension Referring Provider: EVA COX MD Exam/Review of Systems Vital Signs Vitals Vital Signs Date Time Temp Pulse Resp B/P Pulse Ox O2 Delivery O2 Flow Rate FiO2 08/18/16 12:20 116 20 100 40 08/18/16 09:45 107/70 Mechanical Ventilator 08/18/16 07:45 98.6 08/16/16 11:00 2.0 Intake and Output 08/17/16 08/17/16 08/18/16 15:00 23:00 07:00 Intake Total 2525.74 ml 2665.11 ml 1255.57 ml Output Total 1040 ml 330 ml 2000 ml Balance 1485.74 ml 2335.11 ml -744.43 ml Exam Review of Systems: CONSTITUTIONAL: No fevers, chills. PULMONARY: intubated CARDIOVASCULAR: No obvious chest pain/palpitations GASTROINTESTINAL: No nausea/vomiting. GENITOURINARY: No hematuria/dysuria. MUSCULOSKELETAL: No obvious myagias/arthalgias. PSYCHIATRIC: No documented depression. NEUROLOGIC: encephalopathy Constitutional: other (sleeping) Head: normocephalic ENMT: mucosa pink and moist Neck: jvd (8 cm water), supple Respiratory: other (upper airway rhoncherous sounds, CT in place) Cardiovascular: other (tachycardic, regular rhythm) Gastrointestinal: soft Results Result Diagram: 08/18/16 0330 08/18/16 0330 Results 24 hrs Laboratory Tests Test 08/17/16 17:58 08/17/16 18:04 08/17/16 18:22 08/17/16 18:46 Bedside Glucose < 13 *L 24 *L 102 63 L Test 08/17/16 19:07 08/17/16 19:31 08/17/16 19:35 08/17/16 20:04 Bedside Glucose 147 53 L 72 123 Test 08/17/16 20:18 08/17/16 21:35 08/17/16 21:57 08/17/16 22:00 Bedside Glucose 103 48 *L 127 Sodium Level 125 L Potassium Level 3.4 L Chloride Level 86 L Carbon Dioxide Level 25 Anion Gap 17 H Blood Urea Nitrogen 43 H Creatinine 4.43 H Glucose Level 101 # Calcium Level 6.0 L Test 08/17/16 22:15 08/18/16 01:29 08/18/16 03:30 08/18/16 07:29 Bedside Glucose 106 75 210 White Blood Count 13.3 #H Red Blood Count 2.14 #L Hemoglobin 6.7 #*L Hematocrit 18.8 #L Mean Corpuscular Volume 87.9 Mean Corpuscular Hemoglobin 31.3 Mean Corpuscular Hemoglobin Concent 35.6 Red Cell Distribution Width 17.9 H Platelet Count 27 #*L Mean Platelet Volume Neutrophils % 89.8 H Lymphocytes % 2.6 L Monocytes % 5.1 Eosinophils % 0.8 Basophils % 0.2 Nucleated Red Blood Cells % 0.0 Neutrophils # 11.9 H Lymphocytes # 0.3 L Monocytes # 0.7 Eosinophils # 0.1 Basophils # 0.0 Nucleated Red Blood Cells # 0.0 Sodium Level 123 L Potassium Level 3.5 Chloride Level 88 L Carbon Dioxide Level 29 Anion Gap 10 # Blood Urea Nitrogen 44 H Creatinine 4.42 H Glucose Level 69 #L Calcium Level 5.5 *L Phosphorus Level 3.3 Magnesium Level 1.8 Total Bilirubin 4.3 #H Direct Bilirubin 2.40 #H Indirect Bilirubin 1.9 H Aspartate Amino Transf (AST/SGOT) 171 #H Alanine Aminotransferase (ALT/SGPT) 35 Alkaline Phosphatase 65 Total Protein 3.8 L Albumin 2.4 L Globulin 1.40 Albumin/Globulin Ratio 1.71 Test 08/18/16 09:03 08/18/16 09:10 08/18/16 10:02 08/18/16 10:36 Bedside Glucose 193 Prothrombin Time 20.1 #H Prothrombin Time Ratio 1.6 INR International Normalized Ratio 1.70 Lab Scanned Report REFERENCE LAB REFERENCE LAB Test 08/18/16 12:18 Bedside Glucose 162 Medications Medications Current Medications Aspirin (Halfprin) 81 mg DAILY PO Last administered on 08/16/16 08:21; Admin Dose 81 MG; Start 07/25/16 at 09:00; Status Future Hold Atorvastatin Calcium (Lipitor) 10 mg QHS PO Last administered on 08/15/16 21: 40; Admin Dose 10 MG; Start 07/24/16 at 21:00; Status Future Hold Cholecalciferol (Vitamin D) 400 units DAILY PO Last administered on 08/18/16 10:38; Admin Dose 400 UNITS; Start 07/25/16 at 09:00 Famotidine (Pepcid) 20 mg DAILY PO Last administered on 08/18/16 10:38; Admin Dose 20 MG; Start 07/25/16 at 09:00 Ferrous Sulfate (Ferrous Sulfate (Ec)) 325 mg BID PO Last administered on 10:38; Admin Dose 325 MG; Start 07/24/16 at 21:00 Acetaminophen/ Hydrocodone Bitart ([place] (5/325)) 1 tab Q4H PRN PO PAIN Last administered on 08/14/16 14:11; Admin Dose 1 TAB; Start 07/24/16 at 17:00 Isoniazid (Isoniazid) 300 mg DAILY PO Last administered on 08/18/16 10:38; Admin Dose 300 MG; Start 07/24/16 at 15:30 Pyridoxine HCl (Vitamin B6) 50 mg DAILY PO Last administered on 08/18/16 10:38 ; Admin Dose 50 MG; Start 07/25/16 at 09:00 Miscellaneous Information 1 ea NOTE XX ; Start 07/24/16 at 16:00 Glucose (Glutose) 15 gm Q15M PRN PO DECREASED GLUCOSE; Start 07/24/16 at 16:00 Glucose (Glutose) 22.5 gm Q15M PRN PO DECREASED GLUCOSE; Start 07/24/16 at 16: 00 Dextrose (D50w Syringe) 25 ml Q15M PRN IV DECREASED GLUCOSE Last administered on 08/17/16 19:48; Admin Dose 25 ML; Start 07/24/16 at 16:00 Dextrose (D50w Syringe) 50 ml Q15M PRN IV DECREASED GLUCOSE Last administered on 08/17/16 21:38; Admin Dose 50 ML; Start 07/24/16 at 16:00 Glucagon (Glucagen) 1 mg Q15M PRN IM DECREASED GLUCOSE; Start 07/24/16 at 16:00 Glucose (Glutose) 15 gm Q15M PRN BUCCAL DECREASED GLUCOSE; Start 07/24/16 at 16 :00 Ondansetron HCl (Zofran Inj) 4 mg Q4 PRN IV nausea Last administered on 21:40; Admin Dose 4 MG; Start 07/24/16 at 17:00 Metoclopramide HCl (Reglan) 5 mg Q4H PRN IV NAUSEA Last administered on 16:40; Admin Dose 5 MG; Start 07/24/16 at 22:30 Hydralazine HCl (Apresoline) 20 mg Q4 PRN IV ELEVATED BLOOD PRESSURE Last administered on 08/04/16 16:35; Admin Dose 20 MG; Start 07/28/16 at 02:00 Polyethylene Glycol (Miralax) 17 gm DAILY PRN GTB CONSTIPATION Last administered on 07/28/16 20:22; Admin Dose 17 GM; Start 07/28/16 at 19:30 Lorazepam (Ativan) 1 mg Q4H PRN IV anxiety Last administered on 08/18/16 01:58 ; Admin Dose 1 MG; Start 07/29/16 at 06:30 Ethambutol HCl (Myambutol) 900 mg TuThSa@20 PO Last administered on 08/13/16 21:41; Admin Dose 900 MG; Start 07/31/16 at 20:00 Pyrazinamide (Pyrazinamide) 1,250 mg TuThSa@20 PO Last administered on 21:44; Admin Dose 1,250 MG; Start 07/31/16 at 20:00 Hydromorphone HCl (Dilaudid) 1 mg Q2H PRN IV pain Last administered on 13:56; Admin Dose 1 MG; Start 08/02/16 at 19:00 Zolpidem Tartrate (Ambien) 5 mg HS PRN PO INSOMNIA Last administered on 22:40; Admin Dose 5 MG; Start 08/08/16 at 21:00 Benazepril HCl (Lotensin) 10 mg BID PO ; Start 08/09/16 at 09:00; Status Future Hold Metoprolol Tartrate 25 mg 25 mg BID GTB Last administered on 08/14/16 20:42; Admin Dose 25 MG; Start 08/09/16 at 21:00 Sodium Chloride 1,000 ml @ 50 mls/hr Q20H IV Last administered on 08/14/16 17 :48; Admin Dose 50 MLS/HR; Start 08/09/16 at 17:30; Status Future Hold Dopamine HCl/ Dextrose (D5W) 250 ml @ 1.71 mls/hr TITRATE IV Last administered on 08/11/16 15:07; Admin Dose 11.43 MLS/HR; Start 08/10/16 at 15:30 Acetaminophen (Tylenol Tab) 650 mg Q6H PRN PO PAIN AND OR ELEVATED TEMP Last administered on 08/12/16 00:54; Admin Dose 650 MG; Start 08/10/16 at 16:30 Clopidogrel Bisulfate 75 mg 75 mg DAILY PO Last administered on 08/16/16 08:21 ; Admin Dose 75 MG; Start 08/11/16 at 12:00; Status Future Hold Phenylephrine HCl 160 mg/Dextrose 500 ml @ 18.75 mls/ hr TITRATE IV Last administered on 08/18/16 08:07; Admin Dose 6.56 MLS/HR; Start 08/12/16 at 06:00 Meropenem (Merrem 500 Mg/ 100 ml (Pmx)) 100 ml @ 200 mls/hr Q24H IVPB Last administered on 08/18/16 10:45; Admin Dose 200 MLS/HR; Start 08/13/16 at 09:00 Epoetin Tutu (Epogen (Esrd)) 3,000 units TuThSa@17 SC Last administered on 08/16 17:25; Admin Dose 3,000 UNITS; Start 08/14/16 at 17:00 Epoetin Tutu (Epogen (Esrd)) 2,000 units TuThSa@17 SC Last administered on 08/16 17:26; Admin Dose 2,000 UNITS; Start 08/14/16 at 17:00 Triglycerides (Mct Oil (Ped)) 10 ml Q6 PO Last administered on 08/18/16 11:52 ; Admin Dose 10 ML; Start 08/14/16 at 12:30 Levofloxacin (Levaquin) 750 mg TuThSa PO Last administered on 08/14/16 20:42; Admin Dose 750 MG; Start 08/14/16 at 20:00 Calcium Carbonate (Tums) 500 mg TID PO Last administered on 08/18/16 10:38; Admin Dose 500 MG; Start 08/15/16 at 09:00 Midodrine 5 mg 5 mg BID@,17 PO Last administered on 08/18/16 10:43; Admin Dose 5 MG; Start 08/15/16 at 17:00 Vasopressin 60 unit/Dextrose 60 ml @ 1.2 mls/hr Q12H IV Last administered on 23:49; Admin Dose 2.4 MLS/HR; Start 08/16/16 at 09:30 Norepinephrine 32 mg/Dextrose 250 ml @ 0.46 mls/hr TITRATE IV Last administered on 08/17/16 22:11; Admin Dose 2.34 MLS/HR; Start 08/16/16 at 13:30 Epinephrine 4 mg/ Sodium Chloride 250 ml @ 3.75 mls/hr TITRATE IV ; Start 08/16 at 14:00 Vancomycin HCl 250 ml @ 125 mls/hr Q96H IVPB ; Start 08/18/16 at 16:00 Sodium Bicarbonate/ Dextrose (Na Bicarb/D10w) 1,100 ml @ 150 mls/hr Q7H20M IV Last administered on 08/18/16 05:41; Admin Dose 150 MLS/HR; Start 08/17/16 at 22:00 Pantoprazole (Protonix Iv) 40 mg DAILY@06 IV Last administered on 08/18/16 05: 41; Admin Dose 40 MG; Start 08/18/16 at 06:00 Insulin Glargine (Lantus) 15 unit 08 SC ; Start 08/18/16 at 08:00 Insulin Aspart NOVOLOG *MILD* ALGORI... Q4 SC ; Start 08/18/16 at 08:00 Caspofungin/ Sodium Chloride ([place]/NS) 250 ml @ 250 mls/hr Q24H IV ; Start 08/18/16 at 17:00 SHERITA SCOTT Aug 18, 2016 13:10
[2016-08-18] MEDS: ALBUMIN HUMAN 25% 100 ML IV SCH ×2 (14:15→14:24)
[2016-08-18 15:51] LABS: WHITE BLOOD COUNT 30.7 10^3/ul (4.8-10.8)
[2016-08-18] MEDS ORDERED: VANCOMYCIN 1 GM in NS 250 ML IVPB SCH (16:00)
[2016-08-18 16:13] LABS: ADD SCAN DIFF NO
[2016-08-18 16:17] LABS: ABNORMAL IP MESSAGE 1; HEMATOCRIT 31.5 % (42.0-52.0); HEMOGLOBIN 11.1 g/dl (14.0-18.0); MEAN CORPUSCULAR HEMOGLOBIN 30.2 pg (29.0-33.0); MEAN CORPUSCULAR HGB CONC 35.2 g/dl (32.0-37.0); MEAN CORPUSCULAR VOLUME 85.8 fl (82.0-101.0); RED BLOOD COUNT 3.67 10^6/ul (4.70-6.10); RED CELL DISTRIBUTION WIDTH 15.8 % (11.5-14.5); WHITE BLOOD COUNT 11.4 10^3/ul (4.8-10.8)
[2016-08-18 16:36] LABS: INR 1.59; PLATELET COUNT 14 10^3/UL (140-415); PROTIME 19.1 Sec (12.2-14.2); PT RATIO 1.5
[2016-08-18 16:37] LABS: PARTIAL THROMBOPLASTIN TIME 60.9 Sec (25.0-35.0); PLATELET COUNT 14 10^3/UL (140-415)
[2016-08-18 16:42] LABS: CREATININE 2.24 mg/dl (0.61-1.24)
[2016-08-18] MEDS: CASPOFUNGIN 35 MG in SOD CHLORIDE 0.9% 250 ML IV SCH (16:56)
[2016-08-18 17:16] LABS: FIBRIN SPLIT PRODUCT >10 and <40 ug/ml (<10)
[2016-08-18 17:17] LABS: THROMBIN TIME 17.7 SEC (13.8-19.1)
[2016-08-18 17:27] LABS: D-DIMER > 10000.00 ng/ml (<460)
[2016-08-18 17:42] LABS: LYMPHOCYTES # 0.3 10^3/ul (0.8-2.9); MONOCYTE # 0.3 10^3/ul (0.3-0.9); NEUTROPHIL # 10.7 10^3/ul (1.6-7.5)
[2016-08-18 17:43] LABS: ANISOCYTOSIS 1+; BURR CELLS 2+; HYPOCHROMASIA 1+; POIKILOCYTOSIS 2+
--- NOTE | 2016-08-18 17:51 | CONS ---
Date/Time of Note Date/Time of Note DATE: 08/18/16 TIME: 17:49 Assessment/Plan Assessment/Plan Chief Complaint/Hosp Course IMPRESSION: 1. Recurrent pleural effusions. s/p vats 2. Lung infiltrate./cavitary lesion 3. s/p code blue positive troponin 4. Hypotension on pressor 5. Diabetes mellitus. 6. End-stage renal disease. 7. anemia. 8. cad. 9. chylothorax 10. ashd 11. vdrf 12. The patient on anti-tuberculosis treatment. 13. 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 14 dehydration on iv fluid 15 hypocalcemia w low albumin 16 poss thoracic duct injury PLAN per id and surg ctube care hd iv fluid albumin iv calcium prn tpn,mediun chain triglyceride pt should be tranferred to [facility] for thoracic duct repair d/w dr álvarez ck labs [facility] Problems: Consultation Date/Type/Reason Admit Date/Time Jul 24, 2016 at 12:53 Initial Consult Date 07/25/16 Type of Consultation: renal Referring Provider: EVA COX MD 24 HR Interval Summary Subjective hx not possible: other (on vent will need to be tranferred to [facility] for thoracic duct repair) Exam/Review of Systems Vital Signs Vitals Vital Signs Date Time Temp Pulse Resp B/P Pulse Ox O2 Delivery O2 Flow Rate FiO2 08/18/16 17:33 105 20 100 40 08/18/16 15:45 136/81 Mechanical Ventilator 08/18/16 12:15 98.8 08/16/16 11:00 2.0 Intake and Output 08/17/16 08/17/16 08/18/16 15:00 23:00 07:00 Intake Total 2525.74 ml 2665.11 ml 1255.57 ml Output Total 1040 ml 330 ml 2000 ml Balance 1485.74 ml 2335.11 ml -744.43 ml Exam Respiratory: clear to auscultation Cardiovascular: regular rate and rhythm Gastrointestinal: bowel sounds (+) Extremities: edema (tr) Results Result Diagram: 08/18/16 1605 08/18/16 1605 Results 24 hrs Laboratory Tests Test 08/17/16 17:58 08/17/16 18:04 08/17/16 18:22 08/17/16 18:46 Bedside Glucose < 13 *L 24 *L 102 63 L Test 08/17/16 19:07 08/17/16 19:31 08/17/16 19:35 08/17/16 20:04 Bedside Glucose 147 53 L 72 123 Test 08/17/16 20:18 08/17/16 21:35 08/17/16 21:57 08/17/16 22:00 Bedside Glucose 103 48 *L 127 Sodium Level 125 L Potassium Level 3.4 L Chloride Level 86 L Carbon Dioxide Level 25 Anion Gap 17 H Blood Urea Nitrogen 43 H Creatinine 4.43 H Glucose Level 101 # Calcium Level 6.0 L Test 08/17/16 22:15 08/18/16 01:29 08/18/16 03:30 08/18/16 07:29 Bedside Glucose 106 75 210 White Blood Count 13.3 #H Red Blood Count 2.14 #L Hemoglobin 6.7 #*L Hematocrit 18.8 #L Mean Corpuscular Volume 87.9 Mean Corpuscular Hemoglobin 31.3 Mean Corpuscular Hemoglobin Concent 35.6 Red Cell Distribution Width 17.9 H Platelet Count 27 #*L Mean Platelet Volume Neutrophils % 89.8 H Lymphocytes % 2.6 L Monocytes % 5.1 Eosinophils % 0.8 Basophils % 0.2 Nucleated Red Blood Cells % 0.0 Neutrophils # 11.9 H Lymphocytes # 0.3 L Monocytes # 0.7 Eosinophils # 0.1 Basophils # 0.0 Nucleated Red Blood Cells # 0.0 Sodium Level 123 L Potassium Level 3.5 Chloride Level 88 L Carbon Dioxide Level 29 Anion Gap 10 # Blood Urea Nitrogen 44 H Creatinine 4.42 H Glucose Level 69 #L Calcium Level 5.5 *L Phosphorus Level 3.3 Magnesium Level 1.8 Total Bilirubin 4.3 #H Direct Bilirubin 2.40 #H Indirect Bilirubin 1.9 H Aspartate Amino Transf (AST/SGOT) 171 #H Alanine Aminotransferase (ALT/SGPT) 35 Alkaline Phosphatase 65 Total Protein 3.8 L Albumin 2.4 L Globulin 1.40 Albumin/Globulin Ratio 1.71 Test 08/18/16 09:03 08/18/16 09:10 08/18/16 10:02 08/18/16 10:36 Bedside Glucose 193 Prothrombin Time 20.1 #H Prothrombin Time Ratio 1.6 INR International Normalized Ratio 1.70 Lab Scanned Report REFERENCE LAB REFERENCE LAB Test 08/18/16 12:18 08/18/16 16:05 08/18/16 16:58 Bedside Glucose 162 208 White Blood Count 11.4 H Red Blood Count 3.67 #L Hemoglobin 11.1 #L Hematocrit 31.5 #L Mean Corpuscular Volume 85.8 Mean Corpuscular Hemoglobin 30.2 Mean Corpuscular Hemoglobin Concent 35.2 Red Cell Distribution Width 15.8 H Platelet Count 14 #*L Mean Platelet Volume Neutrophils % 94.0 H Lymphocytes % 3.0 L Monocytes % 3.0 Neutrophils # 10.7 H Lymphocytes # 0.3 L Monocytes # 0.3 Hypochromasia 1+ Poikilocytosis 2+ Anisocytosis 1+ Macrocytosis 1+ Prothrombin Time 19.1 H Prothrombin Time Ratio 1.5 INR International Normalized Ratio 1.59 Activated Partial Thromboplast Time 60.9 H Thrombin Time 17.7 Fibrinogen 129.0 L Plasma Fibrin Degradation Products >10 and <40 H D-Dimer > 70481.00 H Sodium Level 135 Potassium Level 3.0 L Chloride Level 94 L Carbon Dioxide Level 28 Anion Gap 16 Blood Urea Nitrogen 18 # Creatinine 2.24 #H Glucose Level 200 # Calcium Level 8.0 L Lactate Dehydrogenase 1549 H Medications Medications Current Medications Aspirin (Halfprin) 81 mg DAILY PO Last administered on 08/16/16 08:21; Admin Dose 81 MG; Start 07/25/16 at 09:00; Status Future Hold Atorvastatin Calcium (Lipitor) 10 mg QHS PO Last administered on 08/15/16 21: 40; Admin Dose 10 MG; Start 07/24/16 at 21:00; Status Future Hold Cholecalciferol (Vitamin D) 400 units DAILY PO Last administered on 08/18/16 10:38; Admin Dose 400 UNITS; Start 07/25/16 at 09:00 Famotidine (Pepcid) 20 mg DAILY PO Last administered on 08/18/16 10:38; Admin Dose 20 MG; Start 07/25/16 at 09:00 Ferrous Sulfate (Ferrous Sulfate (Ec)) 325 mg BID PO Last administered on 10:38; Admin Dose 325 MG; Start 07/24/16 at 21:00 Acetaminophen/ Hydrocodone Bitart ([place] (5/325)) 1 tab Q4H PRN PO PAIN Last administered on 08/14/16 14:11; Admin Dose 1 TAB; Start 07/24/16 at 17:00 Isoniazid (Isoniazid) 300 mg DAILY PO Last administered on 08/18/16 10:38; Admin Dose 300 MG; Start 07/24/16 at 15:30 Pyridoxine HCl (Vitamin B6) 50 mg DAILY PO Last administered on 08/18/16 10:38 ; Admin Dose 50 MG; Start 07/25/16 at 09:00 Miscellaneous Information 1 ea NOTE XX ; Start 07/24/16 at 16:00 Glucose (Glutose) 15 gm Q15M PRN PO DECREASED GLUCOSE; Start 07/24/16 at 16:00 Glucose (Glutose) 22.5 gm Q15M PRN PO DECREASED GLUCOSE; Start 07/24/16 at 16: 00 Dextrose (D50w Syringe) 25 ml Q15M PRN IV DECREASED GLUCOSE Last administered on 08/17/16 19:48; Admin Dose 25 ML; Start 07/24/16 at 16:00 Dextrose (D50w Syringe) 50 ml Q15M PRN IV DECREASED GLUCOSE Last administered on 08/17/16 21:38; Admin Dose 50 ML; Start 07/24/16 at 16:00 Glucagon (Glucagen) 1 mg Q15M PRN IM DECREASED GLUCOSE; Start 07/24/16 at 16:00 Glucose (Glutose) 15 gm Q15M PRN BUCCAL DECREASED GLUCOSE; Start 07/24/16 at 16 :00 Ondansetron HCl (Zofran Inj) 4 mg Q4 PRN IV nausea Last administered on 21:40; Admin Dose 4 MG; Start 07/24/16 at 17:00 Metoclopramide HCl (Reglan) 5 mg Q4H PRN IV NAUSEA Last administered on 16:40; Admin Dose 5 MG; Start 07/24/16 at 22:30 Hydralazine HCl (Apresoline) 20 mg Q4 PRN IV ELEVATED BLOOD PRESSURE Last administered on 08/04/16 16:35; Admin Dose 20 MG; Start 07/28/16 at 02:00 Polyethylene Glycol (Miralax) 17 gm DAILY PRN GTB CONSTIPATION Last administered on 07/28/16 20:22; Admin Dose 17 GM; Start 07/28/16 at 19:30 Lorazepam (Ativan) 1 mg Q4H PRN IV anxiety Last administered on 08/18/16 01:58 ; Admin Dose 1 MG; Start 07/29/16 at 06:30 Ethambutol HCl (Myambutol) 900 mg TuThSa@20 PO Last administered on 08/13/16 21:41; Admin Dose 900 MG; Start 07/31/16 at 20:00 Pyrazinamide (Pyrazinamide) 1,250 mg TuThSa@20 PO Last administered on 21:44; Admin Dose 1,250 MG; Start 07/31/16 at 20:00 Hydromorphone HCl (Dilaudid) 1 mg Q2H PRN IV pain Last administered on 13:56; Admin Dose 1 MG; Start 08/02/16 at 19:00 Zolpidem Tartrate (Ambien) 5 mg HS PRN PO INSOMNIA Last administered on 22:40; Admin Dose 5 MG; Start 08/08/16 at 21:00 Benazepril HCl (Lotensin) 10 mg BID PO ; Start 08/09/16 at 09:00; Status Future Hold Metoprolol Tartrate 25 mg 25 mg BID GTB Last administered on 08/14/16 20:42; Admin Dose 25 MG; Start 08/09/16 at 21:00 Sodium Chloride 1,000 ml @ 50 mls/hr Q20H IV Last administered on 08/14/16 17 :48; Admin Dose 50 MLS/HR; Start 08/09/16 at 17:30; Status Future Hold Dopamine HCl/ Dextrose (D5W) 250 ml @ 1.71 mls/hr TITRATE IV Last administered on 08/11/16 15:07; Admin Dose 11.43 MLS/HR; Start 08/10/16 at 15:30 Acetaminophen (Tylenol Tab) 650 mg Q6H PRN PO PAIN AND OR ELEVATED TEMP Last administered on 08/12/16 00:54; Admin Dose 650 MG; Start 08/10/16 at 16:30 Clopidogrel Bisulfate 75 mg 75 mg DAILY PO Last administered on 08/16/16 08:21 ; Admin Dose 75 MG; Start 08/11/16 at 12:00; Status Future Hold Phenylephrine HCl 160 mg/Dextrose 500 ml @ 18.75 mls/ hr TITRATE IV Last administered on 08/18/16 08:07; Admin Dose 6.56 MLS/HR; Start 08/12/16 at 06:00 Meropenem (Merrem 500 Mg/ 100 ml (Pmx)) 100 ml @ 200 mls/hr Q24H IVPB Last administered on 08/18/16 10:45; Admin Dose 200 MLS/HR; Start 08/13/16 at 09:00 Epoetin Tutu (Epogen (Esrd)) 3,000 units TuThSa@17 SC Last administered on 08/16 17:25; Admin Dose 3,000 UNITS; Start 08/14/16 at 17:00 Epoetin Tutu (Epogen (Esrd)) 2,000 units TuThSa@17 SC Last administered on 08/16 17:26; Admin Dose 2,000 UNITS; Start 08/14/16 at 17:00 Triglycerides (Mct Oil (Ped)) 10 ml Q6 PO Last administered on 08/18/16 17:00 ; Admin Dose 10 ML; Start 08/14/16 at 12:30 Levofloxacin (Levaquin) 750 mg TuThSa PO Last administered on 08/14/16 20:42; Admin Dose 750 MG; Start 08/14/16 at 20:00 Calcium Carbonate (Tums) 500 mg TID PO Last administered on 08/18/16 13:18; Admin Dose 500 MG; Start 08/15/16 at 09:00 Midodrine 5 mg 5 mg BID@,17 PO Last administered on 08/18/16 17:00; Admin Dose 5 MG; Start 08/15/16 at 17:00 Vasopressin 60 unit/Dextrose 60 ml @ 1.2 mls/hr Q12H IV Last administered on 23:49; Admin Dose 2.4 MLS/HR; Start 08/16/16 at 09:30 Norepinephrine 32 mg/Dextrose 250 ml @ 0.46 mls/hr TITRATE IV Last administered on 08/17/16 22:11; Admin Dose 2.34 MLS/HR; Start 08/16/16 at 13:30 Epinephrine 4 mg/ Sodium Chloride 250 ml @ 3.75 mls/hr TITRATE IV ; Start 08/16 at 14:00 Vancomycin HCl 250 ml @ 125 mls/hr Q96H IVPB ; Start 08/18/16 at 16:00 Sodium Bicarbonate/ Dextrose (Na Bicarb/D10w) 1,100 ml @ 150 mls/hr Q7H20M IV Last administered on 08/18/16 14:46; Admin Dose 150 MLS/HR; Start 08/17/16 at 22:00 Pantoprazole (Protonix Iv) 40 mg DAILY@06 IV Last administered on 08/18/16 05: 41; Admin Dose 40 MG; Start 08/18/16 at 06:00 Insulin Glargine (Lantus) 15 unit 08 SC ; Start 08/18/16 at 08:00 Insulin Aspart NOVOLOG *MILD* ALGORI... Q4 SC ; Start 08/18/16 at 08:00 Caspofungin 35 mg/ Sodium Chloride 250 ml @ 250 mls/hr Q24H IV Last administered on 08/18/16 16:56; Admin Dose 250 MLS/HR; Start 08/18/16 at 17:00 Potassium Chloride/Sodium Chloride (KCl/NS) 165 ml @ 55 mls/hr ONCE ONCE IVPB ; Start 08/18/16 at 18:30; Stop 08/18/16 at 21:29 PAOLA MOODY MD Aug 18, 2016 17:50
[2016-08-18] MEDS ORDERED: POTASSIUM CHLORIDE 30 MEQ in SOD CHLORIDE 0.9% 150 ML IVPB ONE (18:30)
--- NOTE | 2016-08-18 21:34 | CONS ---
Date/Time of Note Date/Time of Note DATE: 08/18/16 TIME: 21:34 Assessment/Plan Assessment/Plan Chief Complaint/Hosp Course - possible tubercular empyema: R sided complex loculated air containing empyemas , visceral and parietal pleural calcifications. - a 35 mm lesion with possible cavitation in the anterior inferior RUL, possible recurrent tuberculosis - high risk for TB: history (originally from [facility], spends one month of each year in [facility], last in 09/2015), medical history (DM, ESRD), laboratory findings (positive quantiferon TB gold, granulomatous inflammation with focal necrosis on Bx of pleura) - AFB smear was negative x3, also M. tuberculosis DNA probe to the 1st sputum sample was undetectable in early 07/2016; mycobacterium tuberculosis DNA probe to fluid in GUIDO bulb sent on 08/06/2016 was negative - s/p first R VATS, total pulmonary decortication, R pleurodesis on 06/30/2016. Biopsy was negative for fungal stain and AFB stain (micro lab and pathology department), as well as malignancy. It showed granulomatous inflammation with focal necrosis and extensive hyalinization. - s/p second R VATS, decortication thoracotomy on 08/04/2016. Per Dr. Martinez, the tissue did not appear empyema. It was largely blood clots and tissue debris. Fluid was sent for cultures, but not tissue. Path showed blood and polarizable foreign material, no malignancy - sputum collected on 08/02/2016 was negative for mycobacterium tuberculosis DNA probe - h/o recurrent pleural effusion requiring thoracentesis approximately once a year, last performed in 04/2016 prior to this admission - positive quantiferon TB gold status of unknown duration. Per Pt, his past PPD was done in 2013, and was negative. - Our infection quality control assistant Lindsey contacted the TB control unit at [facility]: we learned on 07/11/2016 that Pt has h/o mycobacterial tuberculosis infection in 1997 and was treated between 1997 and 1998. - DM s/p hypoglycemic episode on 08/04/16 & 08/06/16 (Hgb A1c 5.2% on 06/17/16 unreliable d/t recent blood transfusion; Hgb A1c 8.6% on 05/03/15) - ESRD on HD - CAD s/p CABG in 2010 and cardiac stent in 2013 - Moderate to severe protein calorie malnutrition - HIV screen negative in 07/2016 tested at [facility] - Sepsis vs SIRS; Procalc 10.04 on 08/09/16 - Hypotension requiring Levophed & Dopamine - Hyperbilirubinemia - Hyponatremia - improving - Hypocalcemia - improving - Shock, hypovolemic +/- septic, on pressor support - PEA arrest 08/16/16 - Acute respiratory failure s/p intubation 08/16/16 - Elevated troponin - LGIB - Thrombocytopenia - Chylothorax - 1,6-vgyn-r-glucan 189 on 08/14/16 Recommendations: - will review the results of blood cultures x2 (negative to date) and resp culture (in process) from 08/16/2016 - awaiting cocci CF (pending) and crypto antigen (negative) in serum, sent - check LFTs' weekly - consider repeat CT chest - continue empiric jae/caspofungin (08/09/16-), IV vanc (08/16/2016-) - continue renally dosed po Levaquin 750 mg 3x/week after HD as recommended by TB Control (08/12/16-) - continue renally dosed isoniazid, pyrazinamide, ethambutol and vitamin B6 supplement (07/12/2016-) - awaiting transfer to [facility] for embolization of the thoracic duct Appreciate Hematology input Management d/w Dr. Martinez, Pt's RN and Pt's 3 nieces at bedside Above d/w Dr. Verduzco Critical care time spent: 35 minutes Problems: Consultation Date/Type/Reason Admit Date/Time Jul 24, 2016 at 12:53 Initial Consult Date 07/25/16 Type of Consultation: Infectious Disease Referring Provider: EVA COX MD 24 HR Interval Summary Free Text/Dictation Unable to perform ROS since pt intubated and sedated. Awaiting bed at [facility] per d/w [employer]. Pt's nieces requesting to be updated with plans for transfer and updates re: patient's status. Exam/Review of Systems Vital Signs Vitals Vital Signs Date Time Temp Pulse Resp B/P Pulse Ox O2 Delivery O2 Flow Rate FiO2 08/18/16 21:12 104 08/18/16 21:00 20 89/53 100 Mechanical Ventilator 08/18/16 20:00 97.8 08/18/16 17:33 40 08/16/16 11:00 2.0 Intake and Output 08/17/16 08/17/16 08/18/16 15:00 23:00 07:00 Intake Total 2525.74 ml 2665.11 ml 1255.57 ml Output Total 1040 ml 330 ml 2000 ml Balance 1485.74 ml 2335.11 ml -744.43 ml Exam Constitutional: frail, non-verbal, other (orally intubated and sedated) Head: atraumatic, normocephalic ENMT: intubated Neck: other (unable to evaluate) Respiratory: diminished breath sounds, other (Right chest tube in place) Cardiovascular: other (tachycardic) Gastrointestinal: bowel sounds, soft Genitourinary - Male: other (right groin HD catheter intact; pt anuric) Musculoskeletal: muscle weakness Extremities: normal pulses, No clubbing, No cyanosis Neurological: other (sedated) Results Result Diagram: 08/18/16 1605 08/18/16 1605 Results 24 hrs Laboratory Tests Test 08/17/16 21:35 08/17/16 21:57 08/17/16 22:00 08/17/16 22:15 Bedside Glucose 48 *L 127 106 Sodium Level 125 L Potassium Level 3.4 L Chloride Level 86 L Carbon Dioxide Level 25 Anion Gap 17 H Blood Urea Nitrogen 43 H Creatinine 4.43 H Glucose Level 101 # Calcium Level 6.0 L Test 08/18/16 01:29 08/18/16 03:30 08/18/16 07:29 08/18/16 09:03 Bedside Glucose 75 210 193 White Blood Count 13.3 #H Red Blood Count 2.14 #L Hemoglobin 6.7 #*L Hematocrit 18.8 #L Mean Corpuscular Volume 87.9 Mean Corpuscular Hemoglobin 31.3 Mean Corpuscular Hemoglobin Concent 35.6 Red Cell Distribution Width 17.9 H Platelet Count 27 #*L Mean Platelet Volume Neutrophils % 89.8 H Lymphocytes % 2.6 L Monocytes % 5.1 Eosinophils % 0.8 Basophils % 0.2 Nucleated Red Blood Cells % 0.0 Neutrophils # 11.9 H Lymphocytes # 0.3 L Monocytes # 0.7 Eosinophils # 0.1 Basophils # 0.0 Nucleated Red Blood Cells # 0.0 Sodium Level 123 L Potassium Level 3.5 Chloride Level 88 L Carbon Dioxide Level 29 Anion Gap 10 # Blood Urea Nitrogen 44 H Creatinine 4.42 H Glucose Level 69 #L Calcium Level 5.5 *L Phosphorus Level 3.3 Magnesium Level 1.8 Total Bilirubin 4.3 #H Direct Bilirubin 2.40 #H Indirect Bilirubin 1.9 H Aspartate Amino Transf (AST/SGOT) 171 #H Alanine Aminotransferase (ALT/SGPT) 35 Alkaline Phosphatase 65 Total Protein 3.8 L Albumin 2.4 L Globulin 1.40 Albumin/Globulin Ratio 1.71 Test 08/18/16 09:10 08/18/16 10:02 08/18/16 10:36 08/18/16 12:18 Prothrombin Time 20.1 #H Prothrombin Time Ratio 1.6 INR International Normalized Ratio 1.70 Lab Scanned Report REFERENCE LAB REFERENCE LAB Bedside Glucose 162 Test 08/18/16 16:05 08/18/16 16:58 08/18/16 21:24 White Blood Count 11.4 H Red Blood Count 3.67 #L Hemoglobin 11.1 #L Hematocrit 31.5 #L Mean Corpuscular Volume 85.8 Mean Corpuscular Hemoglobin 30.2 Mean Corpuscular Hemoglobin Concent 35.2 Red Cell Distribution Width 15.8 H Platelet Count 14 #*L Mean Platelet Volume Neutrophils % 94.0 H Lymphocytes % 3.0 L Monocytes % 3.0 Neutrophils # 10.7 H Lymphocytes # 0.3 L Monocytes # 0.3 Hypochromasia 1+ Poikilocytosis 2+ Anisocytosis 1+ Macrocytosis 1+ Prothrombin Time 19.1 H Prothrombin Time Ratio 1.5 INR International Normalized Ratio 1.59 Activated Partial Thromboplast Time 60.9 H Thrombin Time 17.7 Fibrinogen 129.0 L Plasma Fibrin Degradation Products >10 and <40 H D-Dimer > 11049.00 H Sodium Level 135 Potassium Level 3.0 L Chloride Level 94 L Carbon Dioxide Level 28 Anion Gap 16 Blood Urea Nitrogen 18 # Creatinine 2.24 #H Glucose Level 200 # Calcium Level 8.0 L Lactate Dehydrogenase 1549 H Bedside Glucose 208 125 Medications Medications Current Medications Aspirin (Halfprin) 81 mg DAILY PO Last administered on 08/16/16 08:21; Admin Dose 81 MG; Start 07/25/16 at 09:00; Status Future Hold Atorvastatin Calcium (Lipitor) 10 mg QHS PO Last administered on 08/15/16 21: 40; Admin Dose 10 MG; Start 07/24/16 at 21:00; Status Future Hold Cholecalciferol (Vitamin D) 400 units DAILY PO Last administered on 08/18/16 10:38; Admin Dose 400 UNITS; Start 07/25/16 at 09:00 Famotidine (Pepcid) 20 mg DAILY PO Last administered on 08/18/16 10:38; Admin Dose 20 MG; Start 07/25/16 at 09:00 Ferrous Sulfate (Ferrous Sulfate (Ec)) 325 mg BID PO Last administered on 21:26; Admin Dose 325 MG; Start 07/24/16 at 21:00 Acetaminophen/ Hydrocodone Bitart ([place] (5/325)) 1 tab Q4H PRN PO PAIN Last administered on 08/14/16 14:11; Admin Dose 1 TAB; Start 07/24/16 at 17:00 Isoniazid (Isoniazid) 300 mg DAILY PO Last administered on 08/18/16 10:38; Admin Dose 300 MG; Start 07/24/16 at 15:30 Pyridoxine HCl (Vitamin B6) 50 mg DAILY PO Last administered on 08/18/16 10:38 ; Admin Dose 50 MG; Start 07/25/16 at 09:00 Miscellaneous Information 1 ea NOTE XX ; Start 07/24/16 at 16:00 Glucose (Glutose) 15 gm Q15M PRN PO DECREASED GLUCOSE; Start 07/24/16 at 16:00 Glucose (Glutose) 22.5 gm Q15M PRN PO DECREASED GLUCOSE; Start 07/24/16 at 16: 00 Dextrose (D50w Syringe) 25 ml Q15M PRN IV DECREASED GLUCOSE Last administered on 08/17/16 19:48; Admin Dose 25 ML; Start 07/24/16 at 16:00 Dextrose (D50w Syringe) 50 ml Q15M PRN IV DECREASED GLUCOSE Last administered on 08/17/16 21:38; Admin Dose 50 ML; Start 07/24/16 at 16:00 Glucagon (Glucagen) 1 mg Q15M PRN IM DECREASED GLUCOSE; Start 07/24/16 at 16:00 Glucose (Glutose) 15 gm Q15M PRN BUCCAL DECREASED GLUCOSE; Start 07/24/16 at 16 :00 Ondansetron HCl (Zofran Inj) 4 mg Q4 PRN IV nausea Last administered on 21:40; Admin Dose 4 MG; Start 07/24/16 at 17:00 Metoclopramide HCl (Reglan) 5 mg Q4H PRN IV NAUSEA Last administered on 16:40; Admin Dose 5 MG; Start 07/24/16 at 22:30 Hydralazine HCl (Apresoline) 20 mg Q4 PRN IV ELEVATED BLOOD PRESSURE Last administered on 08/04/16 16:35; Admin Dose 20 MG; Start 07/28/16 at 02:00 Polyethylene Glycol (Miralax) 17 gm DAILY PRN GTB CONSTIPATION Last administered on 07/28/16 20:22; Admin Dose 17 GM; Start 07/28/16 at 19:30 Lorazepam (Ativan) 1 mg Q4H PRN IV anxiety Last administered on 08/18/16 01:58 ; Admin Dose 1 MG; Start 07/29/16 at 06:30 Ethambutol HCl (Myambutol) 900 mg TuThSa@20 PO Last administered on 08/13/16 21:41; Admin Dose 900 MG; Start 07/31/16 at 20:00 Pyrazinamide (Pyrazinamide) 1,250 mg TuThSa@20 PO Last administered on 21:44; Admin Dose 1,250 MG; Start 07/31/16 at 20:00 Hydromorphone HCl (Dilaudid) 1 mg Q2H PRN IV pain Last administered on 13:56; Admin Dose 1 MG; Start 08/02/16 at 19:00 Zolpidem Tartrate (Ambien) 5 mg HS PRN PO INSOMNIA Last administered on 22:40; Admin Dose 5 MG; Start 08/08/16 at 21:00 Benazepril HCl (Lotensin) 10 mg BID PO ; Start 08/09/16 at 09:00; Status Future Hold Metoprolol Tartrate 25 mg 25 mg BID GTB Last administered on 08/14/16 20:42; Admin Dose 25 MG; Start 08/09/16 at 21:00 Sodium Chloride 1,000 ml @ 50 mls/hr Q20H IV Last administered on 08/14/16 17 :48; Admin Dose 50 MLS/HR; Start 08/09/16 at 17:30; Status Future Hold Dopamine HCl/ Dextrose (D5W) 250 ml @ 1.71 mls/hr TITRATE IV Last administered on 08/11/16 15:07; Admin Dose 11.43 MLS/HR; Start 08/10/16 at 15:30 Acetaminophen (Tylenol Tab) 650 mg Q6H PRN PO PAIN AND OR ELEVATED TEMP Last administered on 08/12/16 00:54; Admin Dose 650 MG; Start 08/10/16 at 16:30 Clopidogrel Bisulfate 75 mg 75 mg DAILY PO Last administered on 08/16/16 08:21 ; Admin Dose 75 MG; Start 08/11/16 at 12:00; Status Future Hold Phenylephrine HCl 160 mg/Dextrose 500 ml @ 18.75 mls/ hr TITRATE IV Last administered on 08/18/16 08:07; Admin Dose 6.56 MLS/HR; Start 08/12/16 at 06:00 Meropenem (Merrem 500 Mg/ 100 ml (Pmx)) 100 ml @ 200 mls/hr Q24H IVPB Last administered on 08/18/16 10:45; Admin Dose 200 MLS/HR; Start 08/13/16 at 09:00 Epoetin Tutu (Epogen (Esrd)) 3,000 units TuThSa@17 SC Last administered on 08/16 17:25; Admin Dose 3,000 UNITS; Start 08/14/16 at 17:00 Epoetin Tutu (Epogen (Esrd)) 2,000 units TuThSa@17 SC Last administered on 08/16 17:26; Admin Dose 2,000 UNITS; Start 08/14/16 at 17:00 Triglycerides (Mct Oil (Ped)) 10 ml Q6 PO Last administered on 08/18/16 17:00 ; Admin Dose 10 ML; Start 08/14/16 at 12:30 Levofloxacin (Levaquin) 750 mg TuThSa PO Last administered on 08/14/16 20:42; Admin Dose 750 MG; Start 08/14/16 at 20:00 Calcium Carbonate (Tums) 500 mg TID PO Last administered on 08/18/16 21:26; Admin Dose 500 MG; Start 08/15/16 at 09:00 Midodrine 5 mg 5 mg BID@09,17 PO Last administered on 08/18/16 17:00; Admin Dose 5 MG; Start 08/15/16 at 17:00 Vasopressin 60 unit/Dextrose 60 ml @ 1.2 mls/hr Q12H IV Last administered on 23:49; Admin Dose 2.4 MLS/HR; Start 08/16/16 at 09:30 Norepinephrine 32 mg/Dextrose 250 ml @ 0.46 mls/hr TITRATE IV Last administered on 08/17/16 22:11; Admin Dose 2.34 MLS/HR; Start 08/16/16 at 13:30 Epinephrine 4 mg/ Sodium Chloride 250 ml @ 3.75 mls/hr TITRATE IV ; Start 08/16 at 14:00 Vancomycin HCl 250 ml @ 125 mls/hr Q96H IVPB Last administered on 08/18/16 18 :14; Admin Dose 125 MLS/HR; Start 08/18/16 at 16:00 Sodium Bicarbonate/ Dextrose (Na Bicarb/D10w) 1,100 ml @ 150 mls/hr Q7H20M IV Last administered on 08/18/16 14:46; Admin Dose 150 MLS/HR; Start 08/17/16 at 22:00 Pantoprazole (Protonix Iv) 40 mg DAILY@06 IV Last administered on 08/18/16 05: 41; Admin Dose 40 MG; Start 08/18/16 at 06:00 Insulin Glargine (Lantus) 15 unit 08 SC ; Start 08/18/16 at 08:00 Insulin Aspart NOVOLOG *MILD* ALGORI... Q4 SC ; Start 08/18/16 at 08:00 Caspofungin/ Sodium Chloride ([place]/NS) 250 ml @ 250 mls/hr Q24H IV Last administered on 08/18/16 16:56; Admin Dose 250 MLS/HR; Start 08/18/16 at 17:00 NORI JORGENSEN NP Aug 18, 2016 21:34
--- NOTE | 2016-08-18 21:35 | PN ---
Date/Time of Note Date/Time of Note DATE: 08/18/16 TIME: 21:34 Assessment/Plan Lines/Catheters IV Catheter Type (from Nrsg): Lukasz cath with pigtail Jonas in Place (from Nrsg): No Assessment/Plan Chief Complaint/Hosp Course IMPRESSION: Right chest tube site bleeding, which has now subsided completely. pt coded yesterday more stable today SP VATS Decortication Chylothorax will continue CT sxn may need pleurex cath would need embolization of the thoracic duct done at [facility] discussed with Dr Saunders and [employer] AUTHOR Problems: Subjective 24 Hr Interval Summary Constitutional: improved Pain Control: mild Exam/Review of Systems Vital Signs Vitals Vital Signs Date Time Temp Pulse Resp B/P Pulse Ox O2 Delivery O2 Flow Rate FiO2 08/18/16 21:12 104 08/18/16 21:00 20 89/53 100 Mechanical Ventilator 08/18/16 20:00 97.8 08/18/16 17:33 40 08/16/16 11:00 2.0 Intake and Output 08/17/16 08/17/16 08/18/16 15:00 23:00 07:00 Intake Total 2525.74 ml 2665.11 ml 1255.57 ml Output Total 1040 ml 330 ml 2000 ml Balance 1485.74 ml 2335.11 ml -744.43 ml Exam Neck: non-tender, supple Respiratory: clear to auscultation, normal air movement Cardiovascular: nl pulses, regular rate and rhythm Results Result Diagram: 08/18/16 1605 08/18/16 1605 LILIA FELIZ MD Aug 18, 2016 21:35
[2016-08-18 22:03] LABS: HEMATOCRIT 27.3 % (42.0-52.0)
--- NOTE | 2016-08-18 22:49 | CONS ---
Date/Time of Note Date/Time of Note DATE: 08/18/16 TIME: 22:32 Assessment/Plan Assessment/Plan Chief Complaint/Hosp Course 60 year old male with ESRD, DM, HTN, CAD, with hemoptysis, now with chest tube in place for active tubercular empyema. Chest tube site is now bleeding and patient has evidence of GI bleed. Since 08/15 patient has become more anemia and thrombocytopenic. Pt is s/p PEA arrest on 08/16. He is still intubated but has been weaned off pressors. #Thrombocytopenia - peripheral smear shows evidence of few schistocytes and LDH is high at 1500. Furthermore fibrinogen is low at 129 which all support DIC likely secondary to underlying infection. TTP unlikely -keep fibrinogen > 150. will given 1 units of cryoprecipitate now -in the setting of active bleed, would try to keep platelets > 50K. -will check HIT panel given patient did get 1 dose of heparin on 08/15 -hold all anticoagulants at this time -continue to treat underlying infection. Although the antibiotics including vancomycin, rifampin and Levaquin may be contributing to patient's thrombocytopenia, I do not think we should discontinue at them point given they are working to combat patients severe sepsis # Anemia - multifactorial and secondary to acute blood loss, chronic renal failure as well as anemia of chronic inflammation caused by underlying infection - pt is s/p 3 units of PRBCs -try to keep Hg> 8 -continue epogen 5000 units 3x week with dialysis #Coagulopathy- as stated above I believe this is secondary to DIC -cryoprecipitate ordered now -continue to monitor INR. pt will likely need FFP in the future -will given IV vitamin K 5mg at this time # GI Bleed - GI following. Per GI patient needs to have GI bleeding scan, but is unstable to have this study done, -will continue to correct coagulopathy as mentioned above # Pleural effusion - s/p chest tube placement for recurrent right pleural effusion consistent with Tubercular empyema. Status post right thoracotomy and pulmonary decortication on 08/04. Per notes, for the Chylothorax, would need embolization of the thoracic duct, pending transfer to [facility]. -continue isoniazid, pyrazinamide, ethambutol and vitamin B6 supplement (2016-) -cont Vancomycin, Levaquin as ordered by ID # [id number] -cont HD per Dr Saunders Problems: (1) Thrombocytopenia Status: Acute (2) DIC (disseminated intravascular coagulation) Status: Acute (3) Acute renal failure Status: Acute (4) Pneumonia Status: Acute (5) End stage kidney disease Status: Chronic (6) Hemoptysis Status: Acute (7) Anemia Status: Acute Qualifiers: Anemia type: other cause Other causes of anemia: other cause, not classified Qualified Code: D64.89 - Anemia due to other cause, not classified (8) Pleural effusion Status: Chronic Consultation Date/Type/Reason Admit Date/Time Jul 24, 2016 at 12:53 Initial Consult Date 07/25/16 Type of Consultation: hematology Reason for Consultation thrombocytopenia Referring Provider: EVA COX MD 24 HR Interval Summary Free Text/Dictation pt continues to bleed from the chest tube. there was also evidence of rectal bleed. this morning patient received 3 units of prbcs. platelets are still waiting to be delivered. since 08/15 platelets have dropped and are now 14. pt as given a dose of Heparin on 08/15. Vancomycin was started on 08/11. Levofloxacin started on 08/12 and meropenem was started on 08/13. Exam/Review of Systems Vital Signs Vitals Vital Signs Date Time Temp Pulse Resp B/P Pulse Ox O2 Delivery O2 Flow Rate FiO2 08/18/16 21:12 104 08/18/16 21:00 20 89/53 100 Mechanical Ventilator 08/18/16 20:00 97.8 08/18/16 17:33 40 08/16/16 11:00 2.0 Intake and Output 08/17/16 08/17/16 08/18/16 15:00 23:00 07:00 Intake Total 2525.74 ml 2665.11 ml 1255.57 ml Output Total 1040 ml 330 ml 2000 ml Balance 1485.74 ml 2335.11 ml -744.43 ml Exam Constitutional: non-verbal Head: normocephalic ENMT: intubated, other Neck: supple Respiratory: other (chest tube in place with sanguanous drainage) Cardiovascular: regular rate and rhythm Gastrointestinal: soft Musculoskeletal: nl extremities to inspection Neurological: RETAIL STOCKER II-XII intact Results Result Diagram: 08/18/16 2200 08/18/16 1605 Results 24 hrs Laboratory Tests Test 08/18/16 01:29 08/18/16 03:30 08/18/16 07:29 08/18/16 09:03 Bedside Glucose 75 210 193 White Blood Count 13.3 #H Red Blood Count 2.14 #L Hemoglobin 6.7 #*L Hematocrit 18.8 #L Mean Corpuscular Volume 87.9 Mean Corpuscular Hemoglobin 31.3 Mean Corpuscular Hemoglobin Concent 35.6 Red Cell Distribution Width 17.9 H Platelet Count 27 #*L Mean Platelet Volume Neutrophils % 89.8 H Lymphocytes % 2.6 L Monocytes % 5.1 Eosinophils % 0.8 Basophils % 0.2 Nucleated Red Blood Cells % 0.0 Neutrophils # 11.9 H Lymphocytes # 0.3 L Monocytes # 0.7 Eosinophils # 0.1 Basophils # 0.0 Nucleated Red Blood Cells # 0.0 Sodium Level 123 L Potassium Level 3.5 Chloride Level 88 L Carbon Dioxide Level 29 Anion Gap 10 # Blood Urea Nitrogen 44 H Creatinine 4.42 H Glucose Level 69 #L Calcium Level 5.5 *L Phosphorus Level 3.3 Magnesium Level 1.8 Total Bilirubin 4.3 #H Direct Bilirubin 2.40 #H Indirect Bilirubin 1.9 H Aspartate Amino Transf (AST/SGOT) 171 #H Alanine Aminotransferase (ALT/SGPT) 35 Alkaline Phosphatase 65 Total Protein 3.8 L Albumin 2.4 L Globulin 1.40 Albumin/Globulin Ratio 1.71 Test 08/18/16 09:10 08/18/16 10:02 08/18/16 10:36 08/18/16 12:18 Prothrombin Time 20.1 #H Prothrombin Time Ratio 1.6 INR International Normalized Ratio 1.70 Lab Scanned Report REFERENCE LAB REFERENCE LAB Bedside Glucose 162 Test 08/18/16 16:05 08/18/16 16:58 08/18/16 21:24 08/18/16 22:00 White Blood Count 11.4 H Red Blood Count 3.67 #L Hemoglobin 11.1 #L 10.0 L Hematocrit 31.5 #L 27.3 L Mean Corpuscular Volume 85.8 Mean Corpuscular Hemoglobin 30.2 Mean Corpuscular Hemoglobin Concent 35.2 Red Cell Distribution Width 15.8 H Platelet Count 14 #*L Mean Platelet Volume Neutrophils % 94.0 H Lymphocytes % 3.0 L Monocytes % 3.0 Neutrophils # 10.7 H Lymphocytes # 0.3 L Monocytes # 0.3 Hypochromasia 1+ Poikilocytosis 2+ Anisocytosis 1+ Macrocytosis 1+ Prothrombin Time 19.1 H Prothrombin Time Ratio 1.5 INR International Normalized Ratio 1.59 Activated Partial Thromboplast Time 60.9 H Thrombin Time 17.7 Fibrinogen 129.0 L Plasma Fibrin Degradation Products >10 and <40 H D-Dimer > 95558.00 H Sodium Level 135 Potassium Level 3.0 L Chloride Level 94 L Carbon Dioxide Level 28 Anion Gap 16 Blood Urea Nitrogen 18 # Creatinine 2.24 #H Glucose Level 200 # Calcium Level 8.0 L Lactate Dehydrogenase 1549 H Bedside Glucose 208 125 Medications Medications Current Medications Aspirin (Halfprin) 81 mg DAILY PO Last administered on 08/16/16 08:21; Admin Dose 81 MG; Start 07/25/16 at 09:00; Status Future Hold Atorvastatin Calcium (Lipitor) 10 mg QHS PO Last administered on 08/15/16 21: 40; Admin Dose 10 MG; Start 07/24/16 at 21:00; Status Future Hold Cholecalciferol (Vitamin D) 400 units DAILY PO Last administered on 08/18/16 10:38; Admin Dose 400 UNITS; Start 07/25/16 at 09:00 Famotidine (Pepcid) 20 mg DAILY PO Last administered on 08/18/16 10:38; Admin Dose 20 MG; Start 07/25/16 at 09:00 Ferrous Sulfate (Ferrous Sulfate (Ec)) 325 mg BID PO Last administered on 21:26; Admin Dose 325 MG; Start 07/24/16 at 21:00 Acetaminophen/ Hydrocodone Bitart ([place] (5/325)) 1 tab Q4H PRN PO PAIN Last administered on 08/14/16 14:11; Admin Dose 1 TAB; Start 07/24/16 at 17:00 Isoniazid (Isoniazid) 300 mg DAILY PO Last administered on 08/18/16 10:38; Admin Dose 300 MG; Start 07/24/16 at 15:30 Pyridoxine HCl (Vitamin B6) 50 mg DAILY PO Last administered on 08/18/16 10:38 ; Admin Dose 50 MG; Start 07/25/16 at 09:00 Miscellaneous Information 1 ea NOTE XX ; Start 07/24/16 at 16:00 Glucose (Glutose) 15 gm Q15M PRN PO DECREASED GLUCOSE; Start 07/24/16 at 16:00 Glucose (Glutose) 22.5 gm Q15M PRN PO DECREASED GLUCOSE; Start 07/24/16 at 16: 00 Dextrose (D50w Syringe) 25 ml Q15M PRN IV DECREASED GLUCOSE Last administered on 08/17/16 19:48; Admin Dose 25 ML; Start 07/24/16 at 16:00 Dextrose (D50w Syringe) 50 ml Q15M PRN IV DECREASED GLUCOSE Last administered on 08/17/16 21:38; Admin Dose 50 ML; Start 07/24/16 at 16:00 Glucagon (Glucagen) 1 mg Q15M PRN IM DECREASED GLUCOSE; Start 07/24/16 at 16:00 Glucose (Glutose) 15 gm Q15M PRN BUCCAL DECREASED GLUCOSE; Start 07/24/16 at 16 :00 Ondansetron HCl (Zofran Inj) 4 mg Q4 PRN IV nausea Last administered on 21:40; Admin Dose 4 MG; Start 07/24/16 at 17:00 Metoclopramide HCl (Reglan) 5 mg Q4H PRN IV NAUSEA Last administered on 16:40; Admin Dose 5 MG; Start 07/24/16 at 22:30 Hydralazine HCl (Apresoline) 20 mg Q4 PRN IV ELEVATED BLOOD PRESSURE Last administered on 08/04/16 16:35; Admin Dose 20 MG; Start 07/28/16 at 02:00 Polyethylene Glycol (Miralax) 17 gm DAILY PRN GTB CONSTIPATION Last administered on 07/28/16 20:22; Admin Dose 17 GM; Start 07/28/16 at 19:30 Lorazepam (Ativan) 1 mg Q4H PRN IV anxiety Last administered on 08/18/16 01:58 ; Admin Dose 1 MG; Start 07/29/16 at 06:30 Ethambutol HCl (Myambutol) 900 mg TuThSa@20 PO Last administered on 08/13/16 21:41; Admin Dose 900 MG; Start 07/31/16 at 20:00 Pyrazinamide (Pyrazinamide) 1,250 mg TuThSa@20 PO Last administered on 21:44; Admin Dose 1,250 MG; Start 07/31/16 at 20:00 Hydromorphone HCl (Dilaudid) 1 mg Q2H PRN IV pain Last administered on 13:56; Admin Dose 1 MG; Start 08/02/16 at 19:00 Zolpidem Tartrate (Ambien) 5 mg HS PRN PO INSOMNIA Last administered on 22:40; Admin Dose 5 MG; Start 08/08/16 at 21:00 Benazepril HCl (Lotensin) 10 mg BID PO ; Start 08/09/16 at 09:00; Status Future Hold Metoprolol Tartrate 25 mg 25 mg BID GTB Last administered on 08/14/16 20:42; Admin Dose 25 MG; Start 08/09/16 at 21:00 Sodium Chloride 1,000 ml @ 50 mls/hr Q20H IV Last administered on 08/14/16 17 :48; Admin Dose 50 MLS/HR; Start 08/09/16 at 17:30; Status Future Hold Dopamine HCl/ Dextrose (D5W) 250 ml @ 1.71 mls/hr TITRATE IV Last administered on 08/11/16 15:07; Admin Dose 11.43 MLS/HR; Start 08/10/16 at 15:30 Acetaminophen (Tylenol Tab) 650 mg Q6H PRN PO PAIN AND OR ELEVATED TEMP Last administered on 08/12/16 00:54; Admin Dose 650 MG; Start 08/10/16 at 16:30 Clopidogrel Bisulfate 75 mg 75 mg DAILY PO Last administered on 08/16/16 08:21 ; Admin Dose 75 MG; Start 08/11/16 at 12:00; Status Future Hold Phenylephrine HCl 160 mg/Dextrose 500 ml @ 18.75 mls/ hr TITRATE IV Last administered on 08/18/16 08:07; Admin Dose 6.56 MLS/HR; Start 08/12/16 at 06:00 Meropenem (Merrem 500 Mg/ 100 ml (Pmx)) 100 ml @ 200 mls/hr Q24H IVPB Last administered on 08/18/16 10:45; Admin Dose 200 MLS/HR; Start 08/13/16 at 09:00 Epoetin Tutu (Epogen (Esrd)) 3,000 units TuThSa@17 SC Last administered on 08/16 17:25; Admin Dose 3,000 UNITS; Start 08/14/16 at 17:00 Epoetin Tutu (Epogen (Esrd)) 2,000 units TuThSa@17 SC Last administered on 08/16 17:26; Admin Dose 2,000 UNITS; Start 08/14/16 at 17:00 Triglycerides (Mct Oil (Ped)) 10 ml Q6 PO Last administered on 08/18/16 17:00 ; Admin Dose 10 ML; Start 08/14/16 at 12:30 Levofloxacin (Levaquin) 750 mg TuThSa PO Last administered on 08/14/16 20:42; Admin Dose 750 MG; Start 08/14/16 at 20:00 Calcium Carbonate (Tums) 500 mg TID PO Last administered on 08/18/16 21:26; Admin Dose 500 MG; Start 08/15/16 at 09:00 Midodrine 5 mg 5 mg BID@09,17 PO Last administered on 08/18/16 17:00; Admin Dose 5 MG; Start 08/15/16 at 17:00 Vasopressin 60 unit/Dextrose 60 ml @ 1.2 mls/hr Q12H IV Last administered on 23:49; Admin Dose 2.4 MLS/HR; Start 08/16/16 at 09:30 Norepinephrine 32 mg/Dextrose 250 ml @ 0.46 mls/hr TITRATE IV Last administered on 08/17/16 22:11; Admin Dose 2.34 MLS/HR; Start 08/16/16 at 13:30 Epinephrine 4 mg/ Sodium Chloride 250 ml @ 3.75 mls/hr TITRATE IV ; Start 08/16 at 14:00 Vancomycin HCl 250 ml @ 125 mls/hr Q96H IVPB Last administered on 08/18/16 18 :14; Admin Dose 125 MLS/HR; Start 08/18/16 at 16:00 Sodium Bicarbonate/ Dextrose (Na Bicarb/D10w) 1,100 ml @ 150 mls/hr Q7H20M IV Last administered on 08/18/16 14:46; Admin Dose 150 MLS/HR; Start 08/17/16 at 22:00 Pantoprazole (Protonix Iv) 40 mg DAILY@06 IV Last administered on 08/18/16 05: 41; Admin Dose 40 MG; Start 08/18/16 at 06:00 Insulin Glargine (Lantus) 15 unit 08 SC ; Start 08/18/16 at 08:00 Insulin Aspart NOVOLOG *MILD* ALGORI... Q4 SC ; Start 08/18/16 at 08:00 Caspofungin/ Sodium Chloride (Cancidas/NS) 250 ml @ 250 mls/hr Q24H IV Last administered on 08/18/16t 16:56; Admin Dose 250 MLS/HR; Start 08/18/16 at 17:00 ALESSANDRO MORA M.D. Aug 18, 2016 22:44
[2016-08-18] MEDS ORDERED: PHYTONADIONE 5 MG in DEXTROSE 5% 50 ML IVPB ONE (23:30)
[2016-08-19] VITALS (73 sets, daily range): BP systolic 52–192; BP diastolic 30–114; PULSE 86–210; RESP 17–36
[2016-08-19] MEDS: INSULIN ASPART [NOVOLOG] 3 ML PEN SC SCH ×6 (00:40→21:00)
[2016-08-19] MEDS: SODIUM BICARBONATE (IV ADD) 100 MEQ in DEXTROSE 10% 1,000 ML IV SCH ×2 (03:20→04:32)
[2016-08-19 06:06] LABS: ADD SCAN DIFF NO
[2016-08-19 06:26] LABS: ABNORMAL IP MESSAGE 1; BASOPHILS % 0.1 % (0.0-2.0); EOSINOPHILS # 0.1 10^3/ul (0.0-0.5); EOSINOPHILS % 0.7 % (0.0-7.0); HEMATOCRIT 26.7 % (42.0-52.0); HEMOGLOBIN 9.5 g/dl (14.0-18.0); LYMPHOCYTES # 0.3 10^3/ul (0.8-2.9); LYMPHOCYTES % 2.5 % (15.0-51.0); MEAN CORPUSCULAR HGB CONC 35.6 g/dl (32.0-37.0); MEAN CORPUSCULAR VOLUME 84.2 fl (82.0-101.0); MEAN PLATELET VOLUME 12.2 fl (7.4-10.4); MONOCYTE # 0.6 10^3/ul (0.3-0.9); MONOCYTES % 4.5 % (0.0-11.0); NEUTROPHIL # 12.3 10^3/ul (1.6-7.5); PLATELET COUNT 54 10^3/UL (140-415); RED BLOOD COUNT 3.17 10^6/ul (4.70-6.10); RED CELL DISTRIBUTION WIDTH 16.3 % (11.5-14.5); WHITE BLOOD COUNT 13.4 10^3/ul (4.8-10.8)
[2016-08-19] MEDS: MED CHAIN TRIGLYCERIDES (PO SYG) PO SCH ×3 (06:30→18:00)
[2016-08-19] MEDS: PANTOPRAZOLE 40 MG INJ IV SCH (06:30)
[2016-08-19 06:33] LABS: NEUTROPHILS % 91.5 % (39.0-77.0)
[2016-08-19 06:51] LABS: POTASSIUM 3.1 mmol/L (3.5-5.1)
[2016-08-19 06:54] LABS: CALCIUM 6.3 mg/dl (8.4-10.2); CREATININE 3.72 mg/dl (0.61-1.24); PHOSPHORUS 2.3 mg/dl (2.5-4.9)
[2016-08-19 06:55] LABS: MAGNESIUM 1.8 mg/dl (1.7-2.5)
[2016-08-19] MEDS: LORAZEPAM 2 MG INJ IV PRN (07:52)
[2016-08-19] MEDS: HYDROmorphONE 1 MG/ML SYG IV PRN ×2 (07:52→11:23)
[2016-08-19] MEDS: CALCIUM CARBONATE 500 MG CHEW TAB PO SCH ×3 (08:31→20:46)
[2016-08-19] MEDS: FERROUS SULFATE (EC) 325 MG TAB PO SCH ×2 (08:32→20:46)
[2016-08-19] MEDS: ISONIAZID 300 MG TAB PO SCH (08:32)
[2016-08-19] MEDS: CHOLECALCIFEROL 400 UNITS TAB PO SCH (08:32)
[2016-08-19] MEDS: FAMOTIDINE 20 MG TAB PO SCH (08:32)
[2016-08-19 08:33] LABS: Allen Test ACCEPTAB; Arterial Base Excess 2.5 mmol/L (-3.0-3); Arterial COHb 0.9 % (0.0-3.0); Arterial Fraction of Oxyhgb 97.1 % (93.0-99.0); Arterial HCO3 24.5 mmol/L (22.0-26.0); Arterial MetHb 0.6 % (0.0-1.5); Arterial Total Hemglobin 9.9 g/dl (12.0-18.0); Blood Gas Low PEEP Setting 0 cmH2O; MODE VENT - AC
[2016-08-19] MEDS: INSULIN GLARGINE [LANtus] 3 ML PEN SC SCH (08:36)
[2016-08-19] MEDS: PYRIDOXINE 50 MG TAB PO SCH (08:38)
[2016-08-19] MEDS: MIDODRINE 5 MG TAB PO SCH ×2 (08:38→16:46)
[2016-08-19] MEDS: VASOPRESSIN 60 UNIT in DEXTROSE 5% 57 ML IV SCH ×2 (08:41→17:26)
[2016-08-19] MEDS: MEROPENEM 500 MG/100 ML (PMX) 100 ML IVPB SCH (08:41)
[2016-08-19] MEDS: METOPROLOL 25 MG TAB GTB SCH ×2 (08:41→21:00)
--- NOTE | 2016-08-19 08:57 | CONS ---
Date/Time of Note Date/Time of Note DATE: 08/19/16 TIME: 08:53 Assessment/Plan Assessment/Plan Chief Complaint/Hosp Course 60 year old male with ESRD, DM, HTN, CAD, with hemoptysis, now with chest tube in place for active tubercular empyema. Chest tube site is now bleeding and patient has evidence of GI bleed. Since 08/15 patient has become more anemia and thrombocytopenic. Pt is s/p PEA arrest on 08/16. He is still intubated but has been weaned off pressors. #Thrombocytopenia - peripheral smear shows evidence of few schistocytes and LDH is high at 1500. Furthermore fibrinogen is low at 129 which all support DIC likely secondary to underlying infection. TTP unlikely -keep fibrinogen > 150. s/p 1 units of cryoprecipitate 08/18 -in the setting of active bleed, would try to keep platelets > 50K. Will give another 1 unit platelets today. -will check HIT panel given patient did get 1 dose of heparin on 08/15 -hold all anticoagulants at this time -continue to treat underlying infection. Although the antibiotics including vancomycin, rifampin and Levaquin may be contributing to patient's thrombocytopenia, I do not think we should discontinue at them point given they are working to combat patients severe sepsis # Anemia - multifactorial and secondary to acute blood loss, chronic renal failure as well as anemia of chronic inflammation caused by underlying infection - pt is s/p 3 units of PRBCs 08/18/16 -try to keep Hg> 8 -continue epogen 5000 units 3x week with dialysis #Coagulopathy- as stated above I believe this is secondary to DIC -cryoprecipitate to keep fibrinogen > 150 -continue to monitor INR. Pt will likely need FFP in the future -s/p IV vitamin K 5mg x1 08/18/16 # GI Bleed - GI following. Per GI patient needs to have GI bleeding scan, but is unstable to have this study done, -will continue to correct coagulopathy as mentioned above # Pleural effusion - s/p chest tube placement for recurrent right pleural effusion consistent with Tubercular empyema. Status post right thoracotomy and pulmonary decortication on 08/04. Per notes, for the Chylothorax, would need embolization of the thoracic duct, pending transfer to [facility]. -continue isoniazid, pyrazinamide, ethambutol and vitamin B6 supplement (2016-) -cont Vancomycin, Levaquin as ordered by ID # [id number] -cont HD per Dr Saunders Problems: Consultation Date/Type/Reason Admit Date/Time Jul 24, 2016 at 12:53 Initial Consult Date 07/25/16 Type of Consultation: hematology Referring Provider: EVA COX MD 24 HR Interval Summary Free Text/Dictation Patient continues to have bloody output from chest tube. No further rectal bleeding. Exam/Review of Systems Vital Signs Vitals Vital Signs Date Time Temp Pulse Resp B/P Pulse Ox O2 Delivery O2 Flow Rate FiO2 08/19/16 08:00 93 20 84/61 100 Mechanical Ventilator 08/19/16 07:40 97.7 08/19/16 07:30 35 08/16/16 11:00 2.0 Intake and Output 08/18/16 08/18/16 08/19/16 15:00 23:00 07:00 Intake Total 1825.86 ml 2338.16 ml 1483.5 ml Output Total 3500 ml 1015 ml Balance 1825.86 ml -1161.84 ml 468.5 ml Exam Constitutional: non-verbal Head: normocephalic ENMT: intubated, other Neck: supple Respiratory: other (chest tube in place with sanguanous drainage) Cardiovascular: regular rate and rhythm Gastrointestinal: soft Musculoskeletal: nl extremities to inspection Neurological: JOB HAND II-XII intact Results Result Diagram: 08/19/16 0450 08/19/16 0450 Results 24 hrs Laboratory Tests Test 08/18/16 09:03 08/18/16 09:10 08/18/16 10:02 08/18/16 10:36 Bedside Glucose 193 Prothrombin Time 20.1 #H Prothrombin Time Ratio 1.6 INR International Normalized Ratio 1.70 Lab Scanned Report REFERENCE LAB REFERENCE LAB Test 08/18/16 12:18 08/18/16 16:05 08/18/16 16:58 08/18/16 21:24 Bedside Glucose 162 208 125 White Blood Count 11.4 H Red Blood Count 3.67 #L Hemoglobin 11.1 #L Hematocrit 31.5 #L Mean Corpuscular Volume 85.8 Mean Corpuscular Hemoglobin 30.2 Mean Corpuscular Hemoglobin Concent 35.2 Red Cell Distribution Width 15.8 H Platelet Count 14 #*L Mean Platelet Volume Neutrophils % 94.0 H Lymphocytes % 3.0 L Monocytes % 3.0 Neutrophils # 10.7 H Lymphocytes # 0.3 L Monocytes # 0.3 Hypochromasia 1+ Poikilocytosis 2+ Anisocytosis 1+ Macrocytosis 1+ Prothrombin Time 19.1 H Prothrombin Time Ratio 1.5 INR International Normalized Ratio 1.59 Activated Partial Thromboplast Time 60.9 H Thrombin Time 17.7 Fibrinogen 129.0 L Plasma Fibrin Degradation Products >10 and <40 H D-Dimer > 31204.00 H Sodium Level 135 Potassium Level 3.0 L Chloride Level 94 L Carbon Dioxide Level 28 Anion Gap 16 Blood Urea Nitrogen 18 # Creatinine 2.24 #H Glucose Level 200 # Calcium Level 8.0 L Lactate Dehydrogenase 1549 H Test 08/18/16 22:00 08/19/16 00:38 08/19/16 04:34 08/19/16 04:50 Hemoglobin 10.0 L 9.5 L Hematocrit 27.3 L 26.7 L Bedside Glucose 208 249 H White Blood Count 13.4 H Red Blood Count 3.17 L Mean Corpuscular Volume 84.2 Mean Corpuscular Hemoglobin 30.0 Mean Corpuscular Hemoglobin Concent 35.6 Red Cell Distribution Width 16.3 H Platelet Count 54 #L Mean Platelet Volume 12.2 H Neutrophils % 91.5 H Lymphocytes % 2.5 L Monocytes % 4.5 Eosinophils % 0.7 Basophils % 0.1 Nucleated Red Blood Cells % 0.0 Neutrophils # 12.3 H Lymphocytes # 0.3 L Monocytes # 0.6 Eosinophils # 0.1 Basophils # 0.0 Nucleated Red Blood Cells # 0.0 Sodium Level 131 L Potassium Level 3.1 L Chloride Level 91 L Carbon Dioxide Level 28 Anion Gap 15 Blood Urea Nitrogen 32 #H Creatinine 3.72 #H Glucose Level 221 H Calcium Level 6.3 L Phosphorus Level 2.3 #L Magnesium Level 1.8 Test 08/19/16 07:00 08/19/16 08:31 Blood Gas Specimen Source Blood arterial Arterial Blood Date Drawn 08/19/2016 7:53:57 AM Arterial Blood pH (Temp corrected) 7.546 H Arterial Blood pCO2 (Temp correct) 28.9 L Arterial Blood pO2 (Temp corrected) 150.0 H Arterial Blood HCO3 24.5 Arterial Blood Base Excess 2.5 Arterial Blood Oxygen Saturation 98.6 H Yoshi Test ACCEPTAB Arterial Blood Gas Puncture Site Left Radial Arterial Blood Carboxyhemoglobin 0.9 Arterial Blood Methemoglobin 0.6 Blood Gas A-a O2 Differential 66.0 H Oxyhemoglobin Percent 97.1 Total Hemoglobin 9.9 L Blood Gas Temperature 37.0 Blood Gas Respiration Rate 20.0 Blood Gas Actual Respiration Rate 22 Blood Gas Modality VENT - AC FiO2 35.0 Blood Gas Tidal Volume 500.0 Blood Gas Low PEEP Setting 0 Blood Gas Notified Whom JLD Blood Gas Notified Time 08/19/2016 8:33:02 AM Bedside Glucose 270 H Medications Medications Current Medications Aspirin (Halfprin) 81 mg DAILY PO Last administered on 08/16/16 08:21; Admin Dose 81 MG; Start 07/25/16 at 09:00; Status Future Hold Atorvastatin Calcium (Lipitor) 10 mg QHS PO Last administered on 08/15/16 21: 40; Admin Dose 10 MG; Start 07/24/16 at 21:00; Status Future Hold Cholecalciferol (Vitamin D) 400 units DAILY PO Last administered on 08/19/16 08:32; Admin Dose 400 UNITS; Start 07/25/16 at 09:00 Famotidine (Pepcid) 20 mg DAILY PO Last administered on 08/19/16 08:32; Admin Dose 20 MG; Start 07/25/16 at 09:00 Ferrous Sulfate (Ferrous Sulfate (Ec)) 325 mg BID PO Last administered on 08:32; Admin Dose 325 MG; Start 07/24/16 at 21:00 Acetaminophen/ Hydrocodone Bitart (Blodgett (5/325)) 1 tab Q4H PRN PO PAIN Last administered on 08/14/16 14:11; Admin Dose 1 TAB; Start 07/24/16 at 17:00 Isoniazid (Isoniazid) 300 mg DAILY PO Last administered on 08/19/16 08:32; Admin Dose 300 MG; Start 07/24/16 at 15:30 Pyridoxine HCl (Vitamin B6) 50 mg DAILY PO Last administered on 08/19/16 08:38 ; Admin Dose 50 MG; Start 07/25/16 at 09:00 Miscellaneous Information 1 ea NOTE XX ; Start 07/24/16 at 16:00 Glucose (Glutose) 15 gm Q15M PRN PO DECREASED GLUCOSE; Start 07/24/16 at 16:00 Glucose (Glutose) 22.5 gm Q15M PRN PO DECREASED GLUCOSE; Start 07/24/16 at 16: 00 Dextrose (D50w Syringe) 25 ml Q15M PRN IV DECREASED GLUCOSE Last administered on 08/17/16 19:48; Admin Dose 25 ML; Start 07/24/16 at 16:00 Dextrose (D50w Syringe) 50 ml Q15M PRN IV DECREASED GLUCOSE Last administered on 08/17/16 21:38; Admin Dose 50 ML; Start 07/24/16 at 16:00 Glucagon (Glucagen) 1 mg Q15M PRN IM DECREASED GLUCOSE; Start 07/24/16 at 16:00 Glucose (Glutose) 15 gm Q15M PRN BUCCAL DECREASED GLUCOSE; Start 07/24/16 at 16 :00 Ondansetron HCl (Zofran Inj) 4 mg Q4 PRN IV nausea Last administered on 21:40; Admin Dose 4 MG; Start 07/24/16 at 17:00 Metoclopramide HCl (Reglan) 5 mg Q4H PRN IV NAUSEA Last administered on 16:40; Admin Dose 5 MG; Start 07/24/16 at 22:30 Hydralazine HCl (Apresoline) 20 mg Q4 PRN IV ELEVATED BLOOD PRESSURE Last administered on 08/04/16 16:35; Admin Dose 20 MG; Start 07/28/16 at 02:00 Polyethylene Glycol (Miralax) 17 gm DAILY PRN GTB CONSTIPATION Last administered on 07/28/16 20:22; Admin Dose 17 GM; Start 07/28/16 at 19:30 Lorazepam (Ativan) 1 mg Q4H PRN IV anxiety Last administered on 08/19/16 07:52 ; Admin Dose 1 MG; Start 07/29/16 at 06:30 Ethambutol HCl (Myambutol) 900 mg TuThSa@20 PO Last administered on 08/13/16 21:41; Admin Dose 900 MG; Start 07/31/16 at 20:00 Pyrazinamide (Pyrazinamide) 1,250 mg TuThSa@20 PO Last administered on 21:44; Admin Dose 1,250 MG; Start 07/31/16 at 20:00 Hydromorphone HCl (Dilaudid) 1 mg Q2H PRN IV pain Last administered on 07:52; Admin Dose 1 MG; Start 08/02/16 at 19:00 Zolpidem Tartrate (Ambien) 5 mg HS PRN PO INSOMNIA Last administered on 22:40; Admin Dose 5 MG; Start 08/08/16 at 21:00 Benazepril HCl (Lotensin) 10 mg BID PO ; Start 08/09/16 at 09:00; Status Future Hold Metoprolol Tartrate 25 mg 25 mg BID GTB Last administered on 08/14/16 20:42; Admin Dose 25 MG; Start 08/09/16 at 21:00 Sodium Chloride 1,000 ml @ 50 mls/hr Q20H IV Last administered on 08/14/16 17 :48; Admin Dose 50 MLS/HR; Start 08/09/16 at 17:30; Status Future Hold Dopamine HCl/ Dextrose (D5W) 250 ml @ 1.71 mls/hr TITRATE IV Last administered on 08/11/16 15:07; Admin Dose 11.43 MLS/HR; Start 08/10/16 at 15:30 Acetaminophen (Tylenol Tab) 650 mg Q6H PRN PO PAIN AND OR ELEVATED TEMP Last administered on 08/12/16 00:54; Admin Dose 650 MG; Start 08/10/16 at 16:30 Clopidogrel Bisulfate 75 mg 75 mg DAILY PO Last administered on 08/16/16 08:21 ; Admin Dose 75 MG; Start 08/11/16 at 12:00; Status Future Hold Phenylephrine HCl 160 mg/Dextrose 500 ml @ 18.75 mls/ hr TITRATE IV Last administered on 08/18/16 08:07; Admin Dose 6.56 MLS/HR; Start 08/12/16 at 06:00 Meropenem (Merrem 500 Mg/ 100 ml (Pmx)) 100 ml @ 200 mls/hr Q24H IVPB Last administered on 08/19/16 08:41; Admin Dose 200 MLS/HR; Start 08/13/16 at 09:00 Epoetin Tutu (Epogen (Esrd)) 3,000 units TuThSa@17 SC Last administered on 08/16 17:25; Admin Dose 3,000 UNITS; Start 08/14/16 at 17:00 Epoetin Tutu (Epogen (Esrd)) 2,000 units TuThSa@17 SC Last administered on 08/16 17:26; Admin Dose 2,000 UNITS; Start 08/14/16 at 17:00 Triglycerides (Mct Oil (Ped)) 10 ml Q6 PO Last administered on 08/19/16 06:30 ; Admin Dose 10 ML; Start 08/14/16 at 12:30 Levofloxacin (Levaquin) 750 mg TuThSa PO Last administered on 08/14/16 20:42; Admin Dose 750 MG; Start 08/14/16 at 20:00 Calcium Carbonate (Tums) 500 mg TID PO Last administered on 08/19/16 08:31; Admin Dose 500 MG; Start 08/15/16 at 09:00 Midodrine 5 mg 5 mg BID@09,17 PO Last administered on 08/19/16 08:38; Admin Dose 5 MG; Start 08/15/16 at 17:00 Vasopressin 60 unit/Dextrose 60 ml @ 1.2 mls/hr Q12H IV Last administered on 23:49; Admin Dose 2.4 MLS/HR; Start 08/16/16 at 09:30 Norepinephrine 32 mg/Dextrose 250 ml @ 0.46 mls/hr TITRATE IV Last administered on 08/17/16 22:11; Admin Dose 2.34 MLS/HR; Start 08/16/16 at 13:30 Epinephrine 4 mg/ Sodium Chloride 250 ml @ 3.75 mls/hr TITRATE IV ; Start 08/16 at 14:00 Vancomycin HCl 250 ml @ 125 mls/hr Q96H IVPB Last administered on 08/18/16 18 :14; Admin Dose 125 MLS/HR; Start 08/18/16 at 16:00 Sodium Bicarbonate/ Dextrose (Na Bicarb/D10w) 1,100 ml @ 150 mls/hr Q7H20M IV Last administered on 08/19/16 04:32; Admin Dose 150 MLS/HR; Start 08/17/16 at 22:00 Pantoprazole (Protonix Iv) 40 mg DAILY@06 IV Last administered on 08/19/16 06: 30; Admin Dose 40 MG; Start 08/18/16 at 06:00 Insulin Glargine (Lantus) 15 unit 08 SC Last administered on 08/19/16 08:36; Admin Dose 15 UNIT; Start 08/18/16 at 08:00 Insulin Aspart NOVOLOG *MILD* ALGORI... Q4 SC Last administered on 08/19/16 08 :37; Admin Dose 4 UNIT; Start 08/18/16 at 08:00 Caspofungin/ Sodium Chloride (Cancidas/NS) 250 ml @ 250 mls/hr Q24H IV Last administered on 08/18/16 16:56; Admin Dose 250 MLS/HR; Start 08/18/16 at 17:00 TOISABELA MD Aug 19, 2016 08:56
[2016-08-19 09:36] LABS: PLATELET COUNT 30 10^3/UL (140-415)
[2016-08-19 10:13] LABS: INR 1.29; PROTIME 16.2 Sec (12.2-14.2); PT RATIO 1.3
[2016-08-19] MEDS: DEXTROSE 5%-0.45% NACL 1,000 ML IV SCH ×3 (10:13→22:22)
[2016-08-19 10:14] LABS: PARTIAL THROMBOPLASTIN TIME 39.4 Sec (25.0-35.0)
[2016-08-19 10:15] LABS: THROMBIN TIME 16.9 SEC (13.8-19.1)
--- NOTE | 2016-08-19 10:26 | CONS ---
Date/Time of Note Date/Time of Note DATE: 08/19/16 TIME: 10:24 Assessment/Plan Assessment/Plan Additional Assessment/Plan 1. Abnormal electrocardiogram, assess for acute coronary syndrome with recurrent chest pain now and recently negative stress test.-negative troponin x 3 - no CP now 2. History of a percutaneous transluminal coronary angioplasty and stent placement to left main and left anterior descending in 2014 - no intervention planned now 3. History of coronary artery bypass graft surgery. 4. Video assisted thoracoscopic surgery pleurodesis with leakage from the chest tube site.- now s/p repeat VATS/pleurodesis with CT with significant outpaut over the last 8 hours - con't high output 5. Shortness of breath- now intubated 6. End-stage renal disease on hemodialysis- Rx as needed, levo gtt for HD yesterday 7. Tuberculosis, on therapy. 8. Hypotension-recurrent today 9. Diabetes mellitus. 10. Dyslipidemia. 11. Anemia-requiring transfusions/acutely decreasing 12.Empyema/cavitary lesions by CT 13.PEA aresst 08/16/16 requiring intubation 14.Resp failure s/p intubation 15.Tachycardic-S Tach ? due to anemia 16.GI bleed 17.Chylothorax-will require treatment at [facility] Consultation Date/Type/Reason Admit Date/Time Jul 24, 2016 at 12:53 Initial Consult Date 07/25/16 Type of Consultation: hematology Referring Provider: EVA COX MD 24 HR Interval Summary Free Text/Dictation Chronically critically ill, still high CT output - con't care - levo gg as needed ROS: No fever, no chills, no nausea, no vomiting, no diarrhea/constipation No recent weight changes No chest pain, no PND, no orthopnea No dizziness, blurred vision No thirst, no heat or cold intolerance (per nurse) Exam/Review of Systems Vital Signs Vitals Vital Signs Date Time Temp Pulse Resp B/P Pulse Ox O2 Delivery O2 Flow Rate FiO2 08/19/16 08:00 93 20 84/61 100 Mechanical Ventilator 08/19/16 07:40 97.7 08/19/16 07:30 35 08/16/16 11:00 2.0 Intake and Output 08/18/16 08/18/16 08/19/16 15:00 23:00 07:00 Intake Total 1825.86 ml 2338.16 ml 1483.5 ml Output Total 3500 ml 1015 ml Balance 1825.86 ml -1161.84 ml 468.5 ml Exam General: WN/WD/NAD, AOx 0 HEENT: Unicetric/atraumatic/EOMI (does not follow commands) NECK: JVD elevated, no thyromegaly, intub Lymph: no lymphadenopathy HEART: regular with no S3, II/ systolic murmur at apex LUNGS: Coarse sounds, CT in ABD: soft, NT, ND, +BS : Intact Neuro: non focal SKIN: chronic changes EXT: trace edema Results Result Diagram: 08/19/16 0915 08/19/16 0450 Results 24 hrs Laboratory Tests Test 08/18/16 10:36 08/18/16 12:18 08/18/16 16:05 08/18/16 16:58 Lab Scanned Report REFERENCE LAB Bedside Glucose 162 208 White Blood Count 11.4 H Red Blood Count 3.67 #L Hemoglobin 11.1 #L Hematocrit 31.5 #L Mean Corpuscular Volume 85.8 Mean Corpuscular Hemoglobin 30.2 Mean Corpuscular Hemoglobin Concent 35.2 Red Cell Distribution Width 15.8 H Platelet Count 14 #*L Mean Platelet Volume Neutrophils % 94.0 H Lymphocytes % 3.0 L Monocytes % 3.0 Neutrophils # 10.7 H Lymphocytes # 0.3 L Monocytes # 0.3 Hypochromasia 1+ Poikilocytosis 2+ Anisocytosis 1+ Macrocytosis 1+ Prothrombin Time 19.1 H Prothrombin Time Ratio 1.5 INR International Normalized Ratio 1.59 Activated Partial Thromboplast Time 60.9 H Thrombin Time 17.7 Fibrinogen 129.0 L Plasma Fibrin Degradation Products >10 and <40 H D-Dimer > 00290.00 H Sodium Level 135 Potassium Level 3.0 L Chloride Level 94 L Carbon Dioxide Level 28 Anion Gap 16 Blood Urea Nitrogen 18 # Creatinine 2.24 #H Glucose Level 200 # Calcium Level 8.0 L Lactate Dehydrogenase 1549 H Test 08/18/16 21:24 08/18/16 22:00 08/19/16 00:38 08/19/16 04:34 Bedside Glucose 125 208 249 H Hemoglobin 10.0 L Hematocrit 27.3 L Test 08/19/16 04:50 08/19/16 07:00 08/19/16 08:31 08/19/16 09:15 White Blood Count 13.4 H Red Blood Count 3.17 L Hemoglobin 9.5 L Hematocrit 26.7 L Mean Corpuscular Volume 84.2 Mean Corpuscular Hemoglobin 30.0 Mean Corpuscular Hemoglobin Concent 35.6 Red Cell Distribution Width 16.3 H Platelet Count 54 #L 30 #L Mean Platelet Volume 12.2 H Neutrophils % 91.5 H Lymphocytes % 2.5 L Monocytes % 4.5 Eosinophils % 0.7 Basophils % 0.1 Nucleated Red Blood Cells % 0.0 Neutrophils # 12.3 H Lymphocytes # 0.3 L Monocytes # 0.6 Eosinophils # 0.1 Basophils # 0.0 Nucleated Red Blood Cells # 0.0 Sodium Level 131 L Potassium Level 3.1 L Chloride Level 91 L Carbon Dioxide Level 28 Anion Gap 15 Blood Urea Nitrogen 32 #H Creatinine 3.72 #H Glucose Level 221 H Calcium Level 6.3 L Phosphorus Level 2.3 #L Magnesium Level 1.8 Blood Gas Specimen Source Blood arterial Arterial Blood Date Drawn 08/19/2016 7:53:57 AM Arterial Blood pH (Temp corrected) 7.546 H Arterial Blood pCO2 (Temp correct) 28.9 L Arterial Blood pO2 (Temp corrected) 150.0 H Arterial Blood HCO3 24.5 Arterial Blood Base Excess 2.5 Arterial Blood Oxygen Saturation 98.6 H Yoshi Test ACCEPTAB Arterial Blood Gas Puncture Site Left Radial Arterial Blood Carboxyhemoglobin 0.9 Arterial Blood Methemoglobin 0.6 Blood Gas A-a O2 Differential 66.0 H Oxyhemoglobin Percent 97.1 Total Hemoglobin 9.9 L Blood Gas Temperature 37.0 Blood Gas Respiration Rate 20.0 Blood Gas Actual Respiration Rate 22 Blood Gas Modality VENT - AC FiO2 35.0 Blood Gas Tidal Volume 500.0 Blood Gas Low PEEP Setting 0 Blood Gas Notified Whom JLD Blood Gas Notified Time 08/19/2016 8:33:02 AM Bedside Glucose 270 H Prothrombin Time 16.2 H Prothrombin Time Ratio 1.3 INR International Normalized Ratio 1.29 Activated Partial Thromboplast Time 39.4 H Thrombin Time 16.9 Fibrinogen 156.0 #L Plasma Fibrin Degradation Products Pending D-Dimer Pending Medications Medications Current Medications Aspirin (Halfprin) 81 mg DAILY PO Last administered on 08/16/16t 08:21; Admin Dose 81 MG; Start 07/25/16 at 09:00; Status Future Hold Atorvastatin Calcium (Lipitor) 10 mg QHS PO Last administered on 08/15/16 21: 40; Admin Dose 10 MG; Start 07/24/16 at 21:00; Status Future Hold Cholecalciferol (Vitamin D) 400 units DAILY PO Last administered on 08/19/16 08:32; Admin Dose 400 UNITS; Start 07/25/16 at 09:00 Famotidine (Pepcid) 20 mg DAILY PO Last administered on 08/19/16 08:32; Admin Dose 20 MG; Start 07/25/16 at 09:00 Ferrous Sulfate (Ferrous Sulfate (Ec)) 325 mg BID PO Last administered on 08:32; Admin Dose 325 MG; Start 07/24/16 at 21:00 Acetaminophen/ Hydrocodone Bitart (Ponder (5/325)) 1 tab Q4H PRN PO PAIN Last administered on 08/14/16 14:11; Admin Dose 1 TAB; Start 07/24/16 at 17:00 Isoniazid (Isoniazid) 300 mg DAILY PO Last administered on 08/19/16 08:32; Admin Dose 300 MG; Start 07/24/16 at 15:30 Pyridoxine HCl (Vitamin B6) 50 mg DAILY PO Last administered on 08/19/16 08:38 ; Admin Dose 50 MG; Start 07/25/16 at 09:00 Miscellaneous Information 1 ea NOTE XX ; Start 07/24/16 at 16:00 Glucose (Glutose) 15 gm Q15M PRN PO DECREASED GLUCOSE; Start 07/24/16 at 16:00 Glucose (Glutose) 22.5 gm Q15M PRN PO DECREASED GLUCOSE; Start 07/24/16 at 16: 00 Dextrose (D50w Syringe) 25 ml Q15M PRN IV DECREASED GLUCOSE Last administered on 08/17/16 19:48; Admin Dose 25 ML; Start 07/24/16 at 16:00 Dextrose (D50w Syringe) 50 ml Q15M PRN IV DECREASED GLUCOSE Last administered on 08/17/16 21:38; Admin Dose 50 ML; Start 07/24/16 at 16:00 Glucagon (Glucagen) 1 mg Q15M PRN IM DECREASED GLUCOSE; Start 07/24/16 at 16:00 Glucose (Glutose) 15 gm Q15M PRN BUCCAL DECREASED GLUCOSE; Start 07/24/16 at 16 :00 Ondansetron HCl (Zofran Inj) 4 mg Q4 PRN IV nausea Last administered on 21:40; Admin Dose 4 MG; Start 07/24/16 at 17:00 Metoclopramide HCl (Reglan) 5 mg Q4H PRN IV NAUSEA Last administered on 16:40; Admin Dose 5 MG; Start 07/24/16 at 22:30 Hydralazine HCl (Apresoline) 20 mg Q4 PRN IV ELEVATED BLOOD PRESSURE Last administered on 08/04/16 16:35; Admin Dose 20 MG; Start 07/28/16 at 02:00 Polyethylene Glycol (Miralax) 17 gm DAILY PRN GTB CONSTIPATION Last administered on 07/28/16 20:22; Admin Dose 17 GM; Start 07/28/16 at 19:30 Lorazepam (Ativan) 1 mg Q4H PRN IV anxiety Last administered on 08/19/16 07:52 ; Admin Dose 1 MG; Start 07/29/16 at 06:30 Ethambutol HCl (Myambutol) 900 mg TuThSa@20 PO Last administered on 08/13/16 21:41; Admin Dose 900 MG; Start 07/31/16 at 20:00 Pyrazinamide (Pyrazinamide) 1,250 mg TuThSa@20 PO Last administered on 21:44; Admin Dose 1,250 MG; Start 07/31/16 at 20:00 Hydromorphone HCl (Dilaudid) 1 mg Q2H PRN IV pain Last administered on 07:52; Admin Dose 1 MG; Start 08/02/16 at 19:00 Zolpidem Tartrate (Ambien) 5 mg HS PRN PO INSOMNIA Last administered on 22:40; Admin Dose 5 MG; Start 08/08/16 at 21:00 Benazepril HCl (Lotensin) 10 mg BID PO ; Start 08/09/16 at 09:00; Status Future Hold Metoprolol Tartrate 25 mg 25 mg BID GTB Last administered on 08/14/16 20:42; Admin Dose 25 MG; Start 08/09/16 at 21:00 Sodium Chloride 1,000 ml @ 50 mls/hr Q20H IV Last administered on 08/14/16 17 :48; Admin Dose 50 MLS/HR; Start 08/09/16 at 17:30; Status Future Hold Dopamine HCl/ Dextrose (D5W) 250 ml @ 1.71 mls/hr TITRATE IV Last administered on 08/11/16 15:07; Admin Dose 11.43 MLS/HR; Start 08/10/16 at 15:30 Acetaminophen (Tylenol Tab) 650 mg Q6H PRN PO PAIN AND OR ELEVATED TEMP Last administered on 08/12/16 00:54; Admin Dose 650 MG; Start 08/10/16 at 16:30 Clopidogrel Bisulfate 75 mg 75 mg DAILY PO Last administered on 08/16/16 08:21 ; Admin Dose 75 MG; Start 08/11/16 at 12:00; Status Future Hold Phenylephrine HCl 160 mg/Dextrose 500 ml @ 18.75 mls/ hr TITRATE IV Last administered on 08/18/16 08:07; Admin Dose 6.56 MLS/HR; Start 08/12/16 at 06:00 Meropenem (Merrem 500 Mg/ 100 ml (Pmx)) 100 ml @ 200 mls/hr Q24H IVPB Last administered on 08/19/16 08:41; Admin Dose 200 MLS/HR; Start 08/13/16 at 09:00 Epoetin Tutu (Epogen (Esrd)) 3,000 units TuThSa@17 SC Last administered on 08/16 17:25; Admin Dose 3,000 UNITS; Start 08/14/16 at 17:00 Epoetin Tutu (Epogen (Esrd)) 2,000 units TuThSa@17 SC Last administered on 08/16 17:26; Admin Dose 2,000 UNITS; Start 08/14/16 at 17:00 Triglycerides (Mct Oil (Ped)) 10 ml Q6 PO Last administered on 08/19/16 06:30 ; Admin Dose 10 ML; Start 08/14/16 at 12:30 Levofloxacin (Levaquin) 750 mg TuThSa PO Last administered on 08/14/16 20:42; Admin Dose 750 MG; Start 08/14/16 at 20:00 Calcium Carbonate (Tums) 500 mg TID PO Last administered on 08/19/16 08:31; Admin Dose 500 MG; Start 08/15/16 at 09:00 Midodrine 5 mg 5 mg BID@09,17 PO Last administered on 08/19/16 08:38; Admin Dose 5 MG; Start 08/15/16 at 17:00 Vasopressin 60 unit/Dextrose 60 ml @ 1.2 mls/hr Q12H IV Last administered on 23:49; Admin Dose 2.4 MLS/HR; Start 08/16/16 at 09:30 Norepinephrine 32 mg/Dextrose 250 ml @ 0.46 mls/hr TITRATE IV Last administered on 08/17/16 22:11; Admin Dose 2.34 MLS/HR; Start 08/16/16 at 13:30 Epinephrine 4 mg/ Sodium Chloride 250 ml @ 3.75 mls/hr TITRATE IV ; Start 08/16 at 14:00 Vancomycin HCl (Vancocin) 250 ml @ 125 mls/hr Q96H IVPB Last administered on 18:14; Admin Dose 125 MLS/HR; Start 08/18/16 at 16:00 Pantoprazole (Protonix Iv) 40 mg DAILY@06 IV Last administered on 08/19/16 06: 30; Admin Dose 40 MG; Start 08/18/16 at 06:00 Insulin Glargine (Lantus) 15 unit 08 SC Last administered on 08/19/16 08:36; Admin Dose 15 UNIT; Start 08/18/16 at 08:00 Insulin Aspart NOVOLOG *MILD* ALGORI... Q4 SC Last administered on 08/19/16 08 :37; Admin Dose 4 UNIT; Start 08/18/16 at 08:00 Caspofungin 35 mg/ Sodium Chloride 250 ml @ 250 mls/hr Q24H IV Last administered on 08/18/16 16:56; Admin Dose 250 MLS/HR; Start 08/18/16 at 17:00 Dextrose/Sodium Chloride (D5-1/2ns) 1,000 ml @ 125 mls/hr Q8H IV Last administered on 08/19/16 10:13; Admin Dose 125 MLS/HR; Start 08/19/16 at 10:00 CRIS BERNARD MD Aug 19, 2016 10:25
[2016-08-19 10:31] LABS: FIBRIN SPLIT PRODUCT <10 ug/ml (<10)
--- NOTE | 2016-08-19 10:31 | CONS ---
Date/Time of Note Date/Time of Note DATE: 08/19/16 TIME: 10:29 Consult Date/Type/Reason Admit Date/Time Jul 24, 2016 at 12:53 Initial Consult Date 07/25/16 Type of Consultation: pulmonary ICU Ordering Provider: EVA COX MD Subjective Status post hemodialysis yesterday with transfusion of packed red blood cells cryoprecipitate and FFP 1 L output from right chest tube Remains intubated on mechanical ventilation Objective Vital Signs Date Time Temp Pulse Resp B/P Pulse Ox O2 Delivery O2 Flow Rate FiO2 08/19/16 08:00 93 20 84/61 100 Mechanical Ventilator 08/19/16 07:40 97.7 08/19/16 07:30 35 08/16/16 11:00 2.0 Intake and Output 08/18/16 08/18/16 08/19/16 15:00 23:00 07:00 Intake Total 1825.86 ml 2338.16 ml 1483.5 ml Output Total 3500 ml 1015 ml Balance 1825.86 ml -1161.84 ml 468.5 ml Exam PHYSICAL EXAMINATION GENERAL: Elderly gentleman, intubated on mechanical ventilation, VITAL SIGNS: see below. HEENT: Pupils equal, round, and reactive to light. CARDIAC: S1, S2, tachycardia. CHEST: Diminished air entry bilaterally. Chest tube right lung ABDOMEN: Mildly distended, bowel sounds present no guarding or rebound EXTREMITIES: No cyanosis, clubbing edema +1 NEUROLOGIC: No focal deficits. Results/Medications Result Diagram: 08/19/16 0915 08/19/16 0450 Results 24 hrs Chest x-ray Small biapical pneumothoraces stable Laboratory Tests Test 08/18/16 10:36 08/18/16 12:18 08/18/16 16:05 08/18/16 16:58 Lab Scanned Report REFERENCE LAB Bedside Glucose 162 208 White Blood Count 11.4 H Red Blood Count 3.67 #L Hemoglobin 11.1 #L Hematocrit 31.5 #L Mean Corpuscular Volume 85.8 Mean Corpuscular Hemoglobin 30.2 Mean Corpuscular Hemoglobin Concent 35.2 Red Cell Distribution Width 15.8 H Platelet Count 14 #*L Mean Platelet Volume Neutrophils % 94.0 H Lymphocytes % 3.0 L Monocytes % 3.0 Neutrophils # 10.7 H Lymphocytes # 0.3 L Monocytes # 0.3 Hypochromasia 1+ Poikilocytosis 2+ Anisocytosis 1+ Macrocytosis 1+ Prothrombin Time 19.1 H Prothrombin Time Ratio 1.5 INR International Normalized Ratio 1.59 Activated Partial Thromboplast Time 60.9 H Thrombin Time 17.7 Fibrinogen 129.0 L Plasma Fibrin Degradation Products >10 and <40 H D-Dimer > 50770.00 H Sodium Level 135 Potassium Level 3.0 L Chloride Level 94 L Carbon Dioxide Level 28 Anion Gap 16 Blood Urea Nitrogen 18 # Creatinine 2.24 #H Glucose Level 200 # Calcium Level 8.0 L Lactate Dehydrogenase 1549 H Test 08/18/16 21:24 08/18/16 22:00 08/19/16 00:38 08/19/16 04:34 Bedside Glucose 125 208 249 H Hemoglobin 10.0 L Hematocrit 27.3 L Test 08/19/16 04:50 08/19/16 07:00 08/19/16 08:31 08/19/16 09:15 White Blood Count 13.4 H Red Blood Count 3.17 L Hemoglobin 9.5 L Hematocrit 26.7 L Mean Corpuscular Volume 84.2 Mean Corpuscular Hemoglobin 30.0 Mean Corpuscular Hemoglobin Concent 35.6 Red Cell Distribution Width 16.3 H Platelet Count 54 #L 30 #L Mean Platelet Volume 12.2 H Neutrophils % 91.5 H Lymphocytes % 2.5 L Monocytes % 4.5 Eosinophils % 0.7 Basophils % 0.1 Nucleated Red Blood Cells % 0.0 Neutrophils # 12.3 H Lymphocytes # 0.3 L Monocytes # 0.6 Eosinophils # 0.1 Basophils # 0.0 Nucleated Red Blood Cells # 0.0 Sodium Level 131 L Potassium Level 3.1 L Chloride Level 91 L Carbon Dioxide Level 28 Anion Gap 15 Blood Urea Nitrogen 32 #H Creatinine 3.72 #H Glucose Level 221 H Calcium Level 6.3 L Phosphorus Level 2.3 #L Magnesium Level 1.8 Blood Gas Specimen Source Blood arterial Arterial Blood Date Drawn 08/19/2016 7:53:57 AM Arterial Blood pH (Temp corrected) 7.546 H Arterial Blood pCO2 (Temp correct) 28.9 L Arterial Blood pO2 (Temp corrected) 150.0 H Arterial Blood HCO3 24.5 Arterial Blood Base Excess 2.5 Arterial Blood Oxygen Saturation 98.6 H Yoshi Test ACCEPTAB Arterial Blood Gas Puncture Site Left Radial Arterial Blood Carboxyhemoglobin 0.9 Arterial Blood Methemoglobin 0.6 Blood Gas A-a O2 Differential 66.0 H Oxyhemoglobin Percent 97.1 Total Hemoglobin 9.9 L Blood Gas Temperature 37.0 Blood Gas Respiration Rate 20.0 Blood Gas Actual Respiration Rate 22 Blood Gas Modality VENT - AC FiO2 35.0 Blood Gas Tidal Volume 500.0 Blood Gas Low PEEP Setting 0 Blood Gas Notified Whom JLD Blood Gas Notified Time 08/19/2016 8:33:02 AM Bedside Glucose 270 H Prothrombin Time 16.2 H Prothrombin Time Ratio 1.3 INR International Normalized Ratio 1.29 Activated Partial Thromboplast Time 39.4 H Thrombin Time 16.9 Fibrinogen 156.0 #L Plasma Fibrin Degradation Products Pending D-Dimer Pending Medications Current Medications Aspirin (Halfprin) 81 mg DAILY PO Last administered on 08/16/16 08:21; Admin Dose 81 MG; Start 07/25/16 at 09:00; Status Future Hold Atorvastatin Calcium (Lipitor) 10 mg QHS PO Last administered on 08/15/16 21: 40; Admin Dose 10 MG; Start 07/24/16 at 21:00; Status Future Hold Cholecalciferol (Vitamin D) 400 units DAILY PO Last administered on 08/19/16 08:32; Admin Dose 400 UNITS; Start 07/25/16 at 09:00 Famotidine (Pepcid) 20 mg DAILY PO Last administered on 08/19/16 08:32; Admin Dose 20 MG; Start 07/25/16 at 09:00 Ferrous Sulfate (Ferrous Sulfate (Ec)) 325 mg BID PO Last administered on 08:32; Admin Dose 325 MG; Start 07/24/16 at 21:00 Acetaminophen/ Hydrocodone Bitart ([place] (5/325)) 1 tab Q4H PRN PO PAIN Last administered on 08/14/16 14:11; Admin Dose 1 TAB; Start 07/24/16 at 17:00 Isoniazid (Isoniazid) 300 mg DAILY PO Last administered on 08/19/16 08:32; Admin Dose 300 MG; Start 07/24/16 at 15:30 Pyridoxine HCl (Vitamin B6) 50 mg DAILY PO Last administered on 08/19/16 08:38 ; Admin Dose 50 MG; Start 07/25/16 at 09:00 Miscellaneous Information 1 ea NOTE XX ; Start 07/24/16 at 16:00 Glucose (Glutose) 15 gm Q15M PRN PO DECREASED GLUCOSE; Start 07/24/16 at 16:00 Glucose (Glutose) 22.5 gm Q15M PRN PO DECREASED GLUCOSE; Start 07/24/16 at 16: 00 Dextrose (D50w Syringe) 25 ml Q15M PRN IV DECREASED GLUCOSE Last administered on 08/17/16 19:48; Admin Dose 25 ML; Start 07/24/16 at 16:00 Dextrose (D50w Syringe) 50 ml Q15M PRN IV DECREASED GLUCOSE Last administered on 08/17/16 21:38; Admin Dose 50 ML; Start 07/24/16 at 16:00 Glucagon (Glucagen) 1 mg Q15M PRN IM DECREASED GLUCOSE; Start 07/24/16 at 16:00 Glucose (Glutose) 15 gm Q15M PRN BUCCAL DECREASED GLUCOSE; Start 07/24/16 at 16 :00 Ondansetron HCl (Zofran Inj) 4 mg Q4 PRN IV nausea Last administered on 21:40; Admin Dose 4 MG; Start 07/24/16 at 17:00 Metoclopramide HCl (Reglan) 5 mg Q4H PRN IV NAUSEA Last administered on 16:40; Admin Dose 5 MG; Start 07/24/16 at 22:30 Hydralazine HCl (Apresoline) 20 mg Q4 PRN IV ELEVATED BLOOD PRESSURE Last administered on 08/04/16 16:35; Admin Dose 20 MG; Start 07/28/16 at 02:00 Polyethylene Glycol (Miralax) 17 gm DAILY PRN GTB CONSTIPATION Last administered on 07/28/16 20:22; Admin Dose 17 GM; Start 07/28/16 at 19:30 Lorazepam (Ativan) 1 mg Q4H PRN IV anxiety Last administered on 08/19/16 07:52 ; Admin Dose 1 MG; Start 07/29/16 at 06:30 Ethambutol HCl (Myambutol) 900 mg TuThSa@20 PO Last administered on 08/13/16 21:41; Admin Dose 900 MG; Start 07/31/16 at 20:00 Pyrazinamide (Pyrazinamide) 1,250 mg TuThSa@20 PO Last administered on 21:44; Admin Dose 1,250 MG; Start 07/31/16 at 20:00 Hydromorphone HCl (Dilaudid) 1 mg Q2H PRN IV pain Last administered on 07:52; Admin Dose 1 MG; Start 08/02/16 at 19:00 Zolpidem Tartrate (Ambien) 5 mg HS PRN PO INSOMNIA Last administered on 22:40; Admin Dose 5 MG; Start 08/08/16 at 21:00 Benazepril HCl (Lotensin) 10 mg BID PO ; Start 08/09/16 at 09:00; Status Future Hold Metoprolol Tartrate 25 mg 25 mg BID GTB Last administered on 08/14/16 20:42; Admin Dose 25 MG; Start 08/09/16 at 21:00 Sodium Chloride 1,000 ml @ 50 mls/hr Q20H IV Last administered on 08/14/16 17 :48; Admin Dose 50 MLS/HR; Start 08/09/16 at 17:30; Status Future Hold Dopamine HCl/ Dextrose (D5W) 250 ml @ 1.71 mls/hr TITRATE IV Last administered on 08/11/16 15:07; Admin Dose 11.43 MLS/HR; Start 08/10/16 at 15:30 Acetaminophen (Tylenol Tab) 650 mg Q6H PRN PO PAIN AND OR ELEVATED TEMP Last administered on 08/12/16 00:54; Admin Dose 650 MG; Start 08/10/16 at 16:30 Clopidogrel Bisulfate 75 mg 75 mg DAILY PO Last administered on 08/16/16 08:21 ; Admin Dose 75 MG; Start 08/11/16 at 12:00; Status Future Hold Phenylephrine HCl 160 mg/Dextrose 500 ml @ 18.75 mls/ hr TITRATE IV Last administered on 08/18/16 08:07; Admin Dose 6.56 MLS/HR; Start 08/12/16 at 06:00 Meropenem (Merrem 500 Mg/ 100 ml (Pmx)) 100 ml @ 200 mls/hr Q24H IVPB Last administered on 08/19/16 08:41; Admin Dose 200 MLS/HR; Start 08/13/16 at 09:00 Epoetin Tutu (Epogen (Esrd)) 3,000 units TuThSa@17 SC Last administered on 08/16 17:25; Admin Dose 3,000 UNITS; Start 08/14/16 at 17:00 Epoetin Tutu (Epogen (Esrd)) 2,000 units TuThSa@17 SC Last administered on 08/16 17:26; Admin Dose 2,000 UNITS; Start 08/14/16 at 17:00 Triglycerides (Mct Oil (Ped)) 10 ml Q6 PO Last administered on 08/19/16 06:30 ; Admin Dose 10 ML; Start 08/14/16 at 12:30 Levofloxacin (Levaquin) 750 mg TuThSa PO Last administered on 08/14/16 20:42; Admin Dose 750 MG; Start 08/14/16 at 20:00 Calcium Carbonate (Tums) 500 mg TID PO Last administered on 08/19/16 08:31; Admin Dose 500 MG; Start 08/15/16 at 09:00 Midodrine 5 mg 5 mg BID@ PO Last administered on 08/19/16 08:38; Admin Dose 5 MG; Start 08/15/16 at 17:00 Vasopressin 60 unit/Dextrose 60 ml @ 1.2 mls/hr Q12H IV Last administered on 23:49; Admin Dose 2.4 MLS/HR; Start 08/16/16 at 09:30 Norepinephrine 32 mg/Dextrose 250 ml @ 0.46 mls/hr TITRATE IV Last administered on 08/17/16 22:11; Admin Dose 2.34 MLS/HR; Start 08/16/16 at 13:30 Epinephrine 4 mg/ Sodium Chloride 250 ml @ 3.75 mls/hr TITRATE IV ; Start 08/16 at 14:00 Vancomycin HCl (Vancocin) 250 ml @ 125 mls/hr Q96H IVPB Last administered on 18:14; Admin Dose 125 MLS/HR; Start 08/18/16 at 16:00 Pantoprazole (Protonix Iv) 40 mg DAILY@06 IV Last administered on 08/19/16 06: 30; Admin Dose 40 MG; Start 08/18/16 at 06:00 Insulin Glargine (Lantus) 15 unit 08 SC Last administered on 08/19/16 08:36; Admin Dose 15 UNIT; Start 08/18/16 at 08:00 Insulin Aspart NOVOLOG *MILD* ALGORI... Q4 SC Last administered on 08/19/16 08 :37; Admin Dose 4 UNIT; Start 08/18/16 at 08:00 Caspofungin 35 mg/ Sodium Chloride 250 ml @ 250 mls/hr Q24H IV Last administered on 08/18/16 16:56; Admin Dose 250 MLS/HR; Start 08/18/16 at 17:00 Dextrose/Sodium Chloride (D5-1/2ns) 1,000 ml @ 125 mls/hr Q8H IV Last administered on 08/19/16 10:13; Admin Dose 125 MLS/HR; Start 08/19/16 at 10:00 Assessment/Plan Chief Complaint/Hosp Course Assessment 1. Recurrent right pleural effusion consistent with empyema, cavitary lesions in the lung noted following thoracentesis. 2. Recent VATS decortication now requiring repeat procedure, now with evidence of chylothorax 3. Coronary artery disease on antiplatelet agents 4. End-stage renal failure on hemodialysis 5. Severe anemia likely secondary to GI bleed Plan 1. Monitor H&H, blood products per hematology oncology 2. Wean off vasopressors as tolerated 3. Continue chest tube drainage to suction 4. Continue mechanical ventilation 5. DVT GI prophylaxis 6. ID recommendations and antibiotics Disposition Pending transfer to [facility] Problems: MATILDE DEWEY MD, [facility] Aug 19, 2016 10:31
[2016-08-19 10:49] LABS: D-DIMER 6261.38 ng/ml (<460)
[2016-08-19] MEDS ORDERED: MAGNESIUM SULFATE 3 GM in SOD CHLORIDE 0.9% 100 ML IVPB ONE (11:00)
[2016-08-19] MEDS ORDERED: POTASSIUM CHLORIDE 20 MEQ POWDER FOR ORAL SOLN NGT ONE (11:00)
--- NOTE | 2016-08-19 11:01 | RADRPT ---
PROCEDURE: XR Chest. CLINICAL INDICATION: Shortness of breath. TECHNIQUE: Single frontal view. COMPARISON: 08/16/2016. FINDINGS: The endotracheal tube, nasogastric tube, right chest tube, sternal wires, mediastinal clips, left-si ded permanent pacemaker, and right sided skin willis are all once again noted and appears satisfact ory. Mild atelectasis at the lung bases with right worse than left is unchanged. The lungs are oth erwise clear. The heart size is normal. There is no pleural effusion. There is no pneumothorax. IMPRESSION: 1. Atelectasis at the lung bases with right worse than left. 2. Postoperative changes. 3. Tubes and lines in satisfactory position. RPTAT: QQ .Robby Bennett MD, MD Date Time Electronically viewed and signed by .Robby Bennett MD, MD on 08/19/2016 11:01 .R/
[2016-08-19] MEDS: NORepinephrine 32 MG in DEXTROSE 5% 218 ML IV SCH (12:50)
--- NOTE | 2016-08-19 13:40 | PN ---
Date/Time of Note Date/Time of Note DATE: 08/19/16 TIME: 13:37 Assessment/Plan VTE Prophylaxis VTE Prophylaxis Intervention: SCD's Lines/Catheters IV C[facility] Type ([facility] TRIALYSISI Urinary Cath still in place: No Assessment/Plan Chief Complaint/Hosp Course Assessment and plan: - Recurrent right pleural effusion consistent with empyema, cavitary lesions, status post right thoracotomy and pulmonary decortication on 08/04. Chylothorax, would need embolization of the thoracic duct, pending transfer to [facility]. - S/ P PEA arrest on 08/16. Dr. De Santiago is following and cardiology consultation. - Hypovolemia vs cardiogenic shock, continue IV fluids, pressors, ICU care. - Anemia of acute blood loss, transfuse blood, continue to monitor hemoglobin and hematocrit. Dr. Martinez is following in hematology consultation. -Thrombocytopenia most likely due to DIC, pending platelets transfusion. - GI bleed, Dr Borjas is following in GI consult. -Hemoptysis, resolved. Dr. Dale is following in pulmonology consultation. Dr. Caitlin balderas is following an infection disease consultation. -Right former chest tube site bleeding, resolved. Dr. Martinez is following in thoracic surgery consultation. 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 - End-stage renal disease, continue hemodialysis. Dr. Saunders is following in nephrology consultation. - Diabetes mellitus type 2, continue NovoLog per mild algorithm sliding scale. - Hypertension. Continue benazepril metoprolol hydralazine Procardia - Coronary artery disease, status post coronary artery bypass graft, s/p percutaneous transluminal coronary angioplasty and stent placement to left main and left anterior descending in 2014. - Permanent pacemaker. No acute issues. - Dyslipidemia. Further recommendations based on clinical course. Plan of care discussed with Dr. Price. Problems: Subjective 24 Hr Interval Summary Free Text/Dictation Patient was restarted on Levophed due to hypotension, pending platelets transfusion for thrombocytopenia, pending transfer to [facility]. Exam/Review of Systems Vital Signs Vitals Vital Signs Date Time Temp Pulse Resp B/P Pulse Ox O2 Delivery O2 Flow Rate FiO2 08/19/16 13:32 82/71 100 Mechanical Ventilator 08/19/16 13:30 100 20 08/19/16 12:00 97.0 08/19/16 11:10 35 08/16/16 11:00 2.0 Intake and Output 08/18/16 08/18/16 08/19/16 15:00 23:00 07:00 Intake Total 1825.86 ml 2338.16 ml 1483.5 ml Output Total 3500 ml 1015 ml Balance 1825.86 ml -1161.84 ml 468.5 ml Exam Constitutional: orally intubated Psych: no complaints Head: atraumatic, normocephalic ENMT: nl external ears & nose Neck: non-tender, supple Respiratory: clear to auscultation, normal air movement Cardiovascular: other (Left chest permanent pacemaker), regular rate and rhythm Gastrointestinal: bowel sounds, soft Extremities: normal pulses Neurological: QUALITY CONTROL TECH II-XII intact R CT Results Result Diagram: 08/19/16 0915 08/19/16 0450 Results 24 hrs Laboratory Tests Test 08/18/16 16:05 08/18/16 16:58 08/18/16 21:24 08/18/16 22:00 White Blood Count 11.4 H Red Blood Count 3.67 #L Hemoglobin 11.1 #L 10.0 L Hematocrit 31.5 #L 27.3 L Mean Corpuscular Volume 85.8 Mean Corpuscular Hemoglobin 30.2 Mean Corpuscular Hemoglobin Concent 35.2 Red Cell Distribution Width 15.8 H Platelet Count 14 #*L Mean Platelet Volume Neutrophils % 94.0 H Lymphocytes % 3.0 L Monocytes % 3.0 Neutrophils # 10.7 H Lymphocytes # 0.3 L Monocytes # 0.3 Hypochromasia 1+ Poikilocytosis 2+ Anisocytosis 1+ Macrocytosis 1+ Prothrombin Time 19.1 H Prothrombin Time Ratio 1.5 INR International Normalized Ratio 1.59 Activated Partial Thromboplast Time 60.9 H Thrombin Time 17.7 Fibrinogen 129.0 L Plasma Fibrin Degradation Products >10 and <40 H D-Dimer > 91613.00 H Sodium Level 135 Potassium Level 3.0 L Chloride Level 94 L Carbon Dioxide Level 28 Anion Gap 16 Blood Urea Nitrogen 18 # Creatinine 2.24 #H Glucose Level 200 # Calcium Level 8.0 L Lactate Dehydrogenase 1549 H Bedside Glucose 208 125 Test 08/19/16 00:38 08/19/16 04:34 08/19/16 04:50 08/19/16 07:00 Bedside Glucose 208 249 H White Blood Count 13.4 H Red Blood Count 3.17 L Hemoglobin 9.5 L Hematocrit 26.7 L Mean Corpuscular Volume 84.2 Mean Corpuscular Hemoglobin 30.0 Mean Corpuscular Hemoglobin Concent 35.6 Red Cell Distribution Width 16.3 H Platelet Count 54 #L Mean Platelet Volume 12.2 H Neutrophils % 91.5 H Lymphocytes % 2.5 L Monocytes % 4.5 Eosinophils % 0.7 Basophils % 0.1 Nucleated Red Blood Cells % 0.0 Neutrophils # 12.3 H Lymphocytes # 0.3 L Monocytes # 0.6 Eosinophils # 0.1 Basophils # 0.0 Nucleated Red Blood Cells # 0.0 Sodium Level 131 L Potassium Level 3.1 L Chloride Level 91 L Carbon Dioxide Level 28 Anion Gap 15 Blood Urea Nitrogen 32 #H Creatinine 3.72 #H Glucose Level 221 H Calcium Level 6.3 L Phosphorus Level 2.3 #L Magnesium Level 1.8 Blood Gas Specimen Source Blood arterial Arterial Blood Date Drawn 08/19/2016 7:53:57 AM Arterial Blood pH (Temp corrected) 7.546 H Arterial Blood pCO2 (Temp correct) 28.9 L Arterial Blood pO2 (Temp corrected) 150.0 H Arterial Blood HCO3 24.5 Arterial Blood Base Excess 2.5 Arterial Blood Oxygen Saturation 98.6 H Yoshi Test ACCEPTAB Arterial Blood Gas Puncture Site Left Radial Arterial Blood Carboxyhemoglobin 0.9 Arterial Blood Methemoglobin 0.6 Blood Gas A-a O2 Differential 66.0 H Oxyhemoglobin Percent 97.1 Total Hemoglobin 9.9 L Blood Gas Temperature 37.0 Blood Gas Respiration Rate 20.0 Blood Gas Actual Respiration Rate 22 Blood Gas Modality VENT - AC FiO2 35.0 Blood Gas Tidal Volume 500.0 Blood Gas Low PEEP Setting 0 Blood Gas Notified Whom JLD Blood Gas Notified Time 08/19/2016 8:33:02 AM Test 08/19/16 08:31 08/19/16 09:15 08/19/16 12:08 Bedside Glucose 270 H 75 Platelet Count 30 #L Prothrombin Time 16.2 H Prothrombin Time Ratio 1.3 INR International Normalized Ratio 1.29 Activated Partial Thromboplast Time 39.4 H Thrombin Time 16.9 Fibrinogen 156.0 #L Plasma Fibrin Degradation Products <10 D-Dimer 6261.38 #H D-Dimer Comment Medications Medications Current Medications Aspirin (Halfprin) 81 mg DAILY PO Last administered on 08/16/16 08:21; Admin Dose 81 MG; Start 07/25/16 at 09:00; Status Future Hold Atorvastatin Calcium (Lipitor) 10 mg QHS PO Last administered on 08/15/16 21: 40; Admin Dose 10 MG; Start 07/24/16 at 21:00; Status Future Hold Cholecalciferol (Vitamin D) 400 units DAILY PO Last administered on 08/19/16 08:32; Admin Dose 400 UNITS; Start 07/25/16 at 09:00 Famotidine (Pepcid) 20 mg DAILY PO Last administered on 08/19/16 08:32; Admin Dose 20 MG; Start 07/25/16 at 09:00 Ferrous Sulfate (Ferrous Sulfate (Ec)) 325 mg BID PO Last administered on 08:32; Admin Dose 325 MG; Start 07/24/16 at 21:00 Acetaminophen/ Hydrocodone Bitart ([place] (5/325)) 1 tab Q4H PRN PO PAIN Last administered on 08/14/16 14:11; Admin Dose 1 TAB; Start 07/24/16 at 17:00 Isoniazid (Isoniazid) 300 mg DAILY PO Last administered on 08/19/16 08:32; Admin Dose 300 MG; Start 07/24/16 at 15:30 Pyridoxine HCl (Vitamin B6) 50 mg DAILY PO Last administered on 08/19/16 08:38 ; Admin Dose 50 MG; Start 07/25/16 at 09:00 Miscellaneous Information 1 ea NOTE XX ; Start 07/24/16 at 16:00 Glucose (Glutose) 15 gm Q15M PRN PO DECREASED GLUCOSE; Start 07/24/16 at 16:00 Glucose (Glutose) 22.5 gm Q15M PRN PO DECREASED GLUCOSE; Start 07/24/16 at 16: 00 Dextrose (D50w Syringe) 25 ml Q15M PRN IV DECREASED GLUCOSE Last administered on 08/17/16 19:48; Admin Dose 25 ML; Start 07/24/16 at 16:00 Dextrose (D50w Syringe) 50 ml Q15M PRN IV DECREASED GLUCOSE Last administered on 08/17/16 21:38; Admin Dose 50 ML; Start 07/24/16 at 16:00 Glucagon (Glucagen) 1 mg Q15M PRN IM DECREASED GLUCOSE; Start 07/24/16 at 16:00 Glucose (Glutose) 15 gm Q15M PRN BUCCAL DECREASED GLUCOSE; Start 07/24/16 at 16 :00 Ondansetron HCl (Zofran Inj) 4 mg Q4 PRN IV nausea Last administered on 21:40; Admin Dose 4 MG; Start 07/24/16 at 17:00 Metoclopramide HCl (Reglan) 5 mg Q4H PRN IV NAUSEA Last administered on 16:40; Admin Dose 5 MG; Start 07/24/16 at 22:30 Hydralazine HCl (Apresoline) 20 mg Q4 PRN IV ELEVATED BLOOD PRESSURE Last administered on 08/04/16 16:35; Admin Dose 20 MG; Start 07/28/16 at 02:00 Polyethylene Glycol (Miralax) 17 gm DAILY PRN GTB CONSTIPATION Last administered on 07/28/16 20:22; Admin Dose 17 GM; Start 07/28/16 at 19:30 Lorazepam (Ativan) 1 mg Q4H PRN IV anxiety Last administered on 08/19/16 07:52 ; Admin Dose 1 MG; Start 07/29/16 at 06:30 Ethambutol HCl (Myambutol) 900 mg TuThSa@20 PO Last administered on 08/13/16 21:41; Admin Dose 900 MG; Start 07/31/16 at 20:00 Pyrazinamide (Pyrazinamide) 1,250 mg TuThSa@20 PO Last administered on 21:44; Admin Dose 1,250 MG; Start 07/31/16 at 20:00 Hydromorphone HCl (Dilaudid) 1 mg Q2H PRN IV pain Last administered on 11:23; Admin Dose 1 MG; Start 08/02/16 at 19:00 Zolpidem Tartrate (Ambien) 5 mg HS PRN PO INSOMNIA Last administered on 22:40; Admin Dose 5 MG; Start 08/08/16 at 21:00 Benazepril HCl (Lotensin) 10 mg BID PO ; Start 08/09/16 at 09:00; Status Future Hold Metoprolol Tartrate 25 mg 25 mg BID GTB Last administered on 08/14/16 20:42; Admin Dose 25 MG; Start 08/09/16 at 21:00 Sodium Chloride 1,000 ml @ 50 mls/hr Q20H IV Last administered on 08/14/16 17 :48; Admin Dose 50 MLS/HR; Start 08/09/16 at 17:30; Status Future Hold Dopamine HCl/ Dextrose (D5W) 250 ml @ 1.71 mls/hr TITRATE IV Last administered on 08/11/16 15:07; Admin Dose 11.43 MLS/HR; Start 08/10/16 at 15:30 Acetaminophen (Tylenol Tab) 650 mg Q6H PRN PO PAIN AND OR ELEVATED TEMP Last administered on 08/12/16 00:54; Admin Dose 650 MG; Start 08/10/16 at 16:30 Clopidogrel Bisulfate 75 mg 75 mg DAILY PO Last administered on 08/16/16 08:21 ; Admin Dose 75 MG; Start 08/11/16 at 12:00; Status Future Hold Phenylephrine HCl 160 mg/Dextrose 500 ml @ 18.75 mls/ hr TITRATE IV Last administered on 08/18/16 08:07; Admin Dose 6.56 MLS/HR; Start 08/12/16 at 06:00 Meropenem (Merrem 500 Mg/ 100 ml (Pmx)) 100 ml @ 200 mls/hr Q24H IVPB Last administered on 08/19/16 08:41; Admin Dose 200 MLS/HR; Start 08/13/16 at 09:00 Epoetin Tutu (Epogen (Esrd)) 3,000 units TuThSa@17 SC Last administered on 08/16 17:25; Admin Dose 3,000 UNITS; Start 08/14/16 at 17:00 Epoetin Tutu (Epogen (Esrd)) 2,000 units TuThSa@17 SC Last administered on 08/16 17:26; Admin Dose 2,000 UNITS; Start 08/14/16 at 17:00 Triglycerides (Mct Oil (Ped)) 10 ml Q6 PO Last administered on 08/19/16 11:00 ; Admin Dose 10 ML; Start 08/14/16 at 12:30 Levofloxacin (Levaquin) 750 mg TuThSa PO Last administered on 08/14/16 20:42; Admin Dose 750 MG; Start 08/14/16 at 20:00 Calcium Carbonate (Tums) 500 mg TID PO Last administered on 08/19/16 12:13; Admin Dose 500 MG; Start 08/15/16 at 09:00 Midodrine 5 mg 5 mg BID@,17 PO Last administered on 08/19/16 08:38; Admin Dose 5 MG; Start 08/15/16 at 17:00 Vasopressin 60 unit/Dextrose 60 ml @ 1.2 mls/hr Q12H IV Last administered on 23:49; Admin Dose 2.4 MLS/HR; Start 08/16/16 at 09:30 Norepinephrine 32 mg/Dextrose 250 ml @ 0.46 mls/hr TITRATE IV Last administered on 08/19/16 12:50; Admin Dose 0.93 MLS/HR; Start 08/16/16 at 13:30 Epinephrine 4 mg/ Sodium Chloride 250 ml @ 3.75 mls/hr TITRATE IV ; Start 08/16 at 14:00 Vancomycin HCl (Vancocin) 250 ml @ 125 mls/hr Q96H IVPB Last administered on 18:14; Admin Dose 125 MLS/HR; Start 08/18/16 at 16:00 Pantoprazole (Protonix Iv) 40 mg DAILY@06 IV Last administered on 08/19/16 06: 30; Admin Dose 40 MG; Start 08/18/16 at 06:00 Insulin Glargine (Lantus) 15 unit 08 SC Last administered on 08/19/16 08:36; Admin Dose 15 UNIT; Start 08/18/16 at 08:00 Insulin Aspart NOVOLOG *MILD* ALGORI... Q4 SC Last administered on 08/19/16 08 :37; Admin Dose 4 UNIT; Start 08/18/16 at 08:00 Caspofungin 35 mg/ Sodium Chloride 250 ml @ 250 mls/hr Q24H IV Last administered on 08/18/16 16:56; Admin Dose 250 MLS/HR; Start 08/18/16 at 17:00 Dextrose/Sodium Chloride 1,000 ml @ 125 mls/hr Q8H IV Last administered on 10:13; Admin Dose 125 MLS/HR; Start 08/19/16 at 10:00 Magnesium Sulfate/ Sodium Chloride (Magnesium Sulfate/NS) 106 ml @ 35.333 mls/ hr ONCE ONCE IVPB Last administered on 08/19/16 11:16; Admin Dose 35.333 MLS/ HR; Start 08/19/16 at 11:00; Stop 08/19/16 at 13:59 CECILIA DAMICO Aug 19, 2016 13:40
[2016-08-19] MEDS: CASPOFUNGIN 35 MG in SOD CHLORIDE 0.9% 250 ML IV SCH (16:46)
[2016-08-19] MEDS: PHENYLephrine 160 MG in DEXTROSE 5% 484 ML IV SCH (16:46)
[2016-08-19] MEDS: EPOETIN 3000 UNITS/1 ML INJ (ESRD) SC SCH (16:47)
[2016-08-19 16:50] LABS: HEMATOCRIT 32.7 % (42.0-52.0)
[2016-08-19] MEDS: EPOETIN 2000 UNITS/1 ML INJ (ESRD) SC SCH (16:51)
--- NOTE | 2016-08-19 18:00 | CONS ---
Date/Time of Note Date/Time of Note DATE: 08/19/16 TIME: 17:59 Assessment/Plan Assessment/Plan Chief Complaint/Hosp Course IMPRESSION: 1. Recurrent pleural effusions. s/p vats 2. Lung infiltrate./cavitary lesion 3. s/p code blue positive troponin 4. Hypotension on pressor 5. Diabetes mellitus. 6. End-stage renal disease. 7. anemia. 8. cad. 9. chylothorax 10. ashd 11. vdrf 12. The patient on anti-tuberculosis treatment. 13. 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 14 dehydration on iv fluid 15 hypocalcemia w low albumin 16 poss thoracic duct injury PLAN per id and surg ctube care hd iv fluid albumin iv calcium prn tpn,mediun chain triglyceride pt should be tranferred to [facility] for thoracic duct repair d/w dr álvarez and dr cox ck labs kcl Problems: Consultation Date/Type/Reason Admit Date/Time Jul 24, 2016 at 12:53 Initial Consult Date 07/25/16 Type of Consultation: renal Referring Provider: EVA COX MD 24 HR Interval Summary Constitutional: other (on vent) Exam/Review of Systems Vital Signs Vitals Vital Signs Date Time Temp Pulse Resp B/P Pulse Ox O2 Delivery O2 Flow Rate FiO2 08/19/16 17:30 199 36 100 100 08/19/16 17:15 52/30 Mechanical Ventilator 08/19/16 16:15 98.9 08/16/16 11:00 2.0 Intake and Output 08/18/16 08/18/16 08/19/16 14:59 22:59 06:59 Intake Total 1665.55 ml 2348.47 ml 1633.5 ml Output Total 3500 ml 1015 ml Balance 1665.55 ml -1151.53 ml 618.5 ml Exam Respiratory: clear to auscultation Cardiovascular: regular rate and rhythm Gastrointestinal: soft Musculoskeletal: nl extremities to inspection Extremities: normal pulses Results Result Diagram: 08/19/16 1645 08/19/16 0450 Results 24 hrs Laboratory Tests Test 08/18/16 21:24 08/18/16 22:00 08/19/16 00:38 08/19/16 04:34 Bedside Glucose 125 208 249 H Hemoglobin 10.0 L Hematocrit 27.3 L Test 08/19/16 04:50 08/19/16 07:00 08/19/16 08:31 08/19/16 09:15 White Blood Count 13.4 H Red Blood Count 3.17 L Hemoglobin 9.5 L Hematocrit 26.7 L Mean Corpuscular Volume 84.2 Mean Corpuscular Hemoglobin 30.0 Mean Corpuscular Hemoglobin Concent 35.6 Red Cell Distribution Width 16.3 H Platelet Count 54 #L 30 #L Mean Platelet Volume 12.2 H Neutrophils % 91.5 H Lymphocytes % 2.5 L Monocytes % 4.5 Eosinophils % 0.7 Basophils % 0.1 Nucleated Red Blood Cells % 0.0 Neutrophils # 12.3 H Lymphocytes # 0.3 L Monocytes # 0.6 Eosinophils # 0.1 Basophils # 0.0 Nucleated Red Blood Cells # 0.0 Sodium Level 131 L Potassium Level 3.1 L Chloride Level 91 L Carbon Dioxide Level 28 Anion Gap 15 Blood Urea Nitrogen 32 #H Creatinine 3.72 #H Glucose Level 221 H Calcium Level 6.3 L Phosphorus Level 2.3 #L Magnesium Level 1.8 Blood Gas Specimen Source Blood arterial Arterial Blood Date Drawn 08/19/2016 7:53:57 AM Arterial Blood pH (Temp corrected) 7.546 H Arterial Blood pCO2 (Temp correct) 28.9 L Arterial Blood pO2 (Temp corrected) 150.0 H Arterial Blood HCO3 24.5 Arterial Blood Base Excess 2.5 Arterial Blood Oxygen Saturation 98.6 H Yoshi Test ACCEPTAB Arterial Blood Gas Puncture Site Left Radial Arterial Blood Carboxyhemoglobin 0.9 Arterial Blood Methemoglobin 0.6 Blood Gas A-a O2 Differential 66.0 H Oxyhemoglobin Percent 97.1 Total Hemoglobin 9.9 L Blood Gas Temperature 37.0 Blood Gas Respiration Rate 20.0 Blood Gas Actual Respiration Rate 22 Blood Gas Modality VENT - AC FiO2 35.0 Blood Gas Tidal Volume 500.0 Blood Gas Low PEEP Setting 0 Blood Gas Notified Whom JLD Blood Gas Notified Time 08/19/2016 8:33:02 AM Bedside Glucose 270 H Prothrombin Time 16.2 H Prothrombin Time Ratio 1.3 INR International Normalized Ratio 1.29 Activated Partial Thromboplast Time 39.4 H Thrombin Time 16.9 Fibrinogen 156.0 #L Plasma Fibrin Degradation Products <10 D-Dimer 6261.38 #H D-Dimer Comment Test 08/19/16 12:08 08/19/16 16:43 08/19/16 16:45 08/19/16 17:05 Bedside Glucose 75 48 *L 89 Hemoglobin 12.0 #L Hematocrit 32.7 #L Test 08/19/16 17:30 Bedside Glucose 112 Medications Medications Current Medications Aspirin (Halfprin) 81 mg DAILY PO Last administered on 08/16/16 08:21; Admin Dose 81 MG; Start 07/25/16 at 09:00; Status Future Hold Atorvastatin Calcium (Lipitor) 10 mg QHS PO Last administered on 08/15/16 21: 40; Admin Dose 10 MG; Start 07/24/16 at 21:00; Status Future Hold Cholecalciferol (Vitamin D) 400 units DAILY PO Last administered on 08/19/16 08:32; Admin Dose 400 UNITS; Start 07/25/16 at 09:00 Famotidine (Pepcid) 20 mg DAILY PO Last administered on 08/19/16 08:32; Admin Dose 20 MG; Start 07/25/16 at 09:00 Ferrous Sulfate (Ferrous Sulfate (Ec)) 325 mg BID PO Last administered on 08:32; Admin Dose 325 MG; Start 07/24/16 at 21:00 Acetaminophen/ Hydrocodone Bitart ([place] (5/325)) 1 tab Q4H PRN PO PAIN Last administered on 08/14/16 14:11; Admin Dose 1 TAB; Start 07/24/16 at 17:00 Isoniazid (Isoniazid) 300 mg DAILY PO Last administered on 08/19/16 08:32; Admin Dose 300 MG; Start 07/24/16 at 15:30 Pyridoxine HCl (Vitamin B6) 50 mg DAILY PO Last administered on 08/19/16 08:38 ; Admin Dose 50 MG; Start 07/25/16 at 09:00 Miscellaneous Information 1 ea NOTE XX ; Start 07/24/16 at 16:00 Glucose (Glutose) 15 gm Q15M PRN PO DECREASED GLUCOSE; Start 07/24/16 at 16:00 Glucose (Glutose) 22.5 gm Q15M PRN PO DECREASED GLUCOSE; Start 07/24/16 at 16: 00 Dextrose (D50w Syringe) 25 ml Q15M PRN IV DECREASED GLUCOSE Last administered on 08/17/16 19:48; Admin Dose 25 ML; Start 07/24/16 at 16:00 Dextrose (D50w Syringe) 50 ml Q15M PRN IV DECREASED GLUCOSE Last administered on 08/17/16 21:38; Admin Dose 50 ML; Start 07/24/16 at 16:00 Glucagon (Glucagen) 1 mg Q15M PRN IM DECREASED GLUCOSE; Start 07/24/16 at 16:00 Glucose (Glutose) 15 gm Q15M PRN BUCCAL DECREASED GLUCOSE; Start 07/24/16 at 16 :00 Ondansetron HCl (Zofran Inj) 4 mg Q4 PRN IV nausea Last administered on 21:40; Admin Dose 4 MG; Start 07/24/16 at 17:00 Metoclopramide HCl (Reglan) 5 mg Q4H PRN IV NAUSEA Last administered on 16:40; Admin Dose 5 MG; Start 07/24/16 at 22:30 Hydralazine HCl (Apresoline) 20 mg Q4 PRN IV ELEVATED BLOOD PRESSURE Last administered on 08/04/16 16:35; Admin Dose 20 MG; Start 07/28/16 at 02:00 Polyethylene Glycol (Miralax) 17 gm DAILY PRN GTB CONSTIPATION Last administered on 07/28/16 20:22; Admin Dose 17 GM; Start 07/28/16 at 19:30 Lorazepam (Ativan) 1 mg Q4H PRN IV anxiety Last administered on 08/19/16 07:52 ; Admin Dose 1 MG; Start 07/29/16 at 06:30 Ethambutol HCl (Myambutol) 900 mg TuThSa@20 PO Last administered on 08/13/16 21:41; Admin Dose 900 MG; Start 07/31/16 at 20:00 Pyrazinamide (Pyrazinamide) 1,250 mg TuThSa@20 PO Last administered on 21:44; Admin Dose 1,250 MG; Start 07/31/16 at 20:00 Hydromorphone HCl (Dilaudid) 1 mg Q2H PRN IV pain Last administered on 11:23; Admin Dose 1 MG; Start 08/02/16 at 19:00 Zolpidem Tartrate (Ambien) 5 mg HS PRN PO INSOMNIA Last administered on 22:40; Admin Dose 5 MG; Start 08/08/16 at 21:00 Benazepril HCl (Lotensin) 10 mg BID PO ; Start 08/09/16 at 09:00; Status Future Hold Metoprolol Tartrate 25 mg 25 mg BID GTB Last administered on 08/14/16 20:42; Admin Dose 25 MG; Start 08/09/16 at 21:00 Sodium Chloride 1,000 ml @ 50 mls/hr Q20H IV Last administered on 08/14/16 17 :48; Admin Dose 50 MLS/HR; Start 08/09/16 at 17:30; Status Future Hold Dopamine HCl/ Dextrose (D5W) 250 ml @ 1.71 mls/hr TITRATE IV Last administered on 08/11/16 15:07; Admin Dose 11.43 MLS/HR; Start 08/10/16 at 15:30 Acetaminophen (Tylenol Tab) 650 mg Q6H PRN PO PAIN AND OR ELEVATED TEMP Last administered on 08/12/16 00:54; Admin Dose 650 MG; Start 08/10/16 at 16:30 Clopidogrel Bisulfate 75 mg 75 mg DAILY PO Last administered on 08/16/16 08:21 ; Admin Dose 75 MG; Start 08/11/16 at 12:00; Status Future Hold Phenylephrine HCl 160 mg/Dextrose 500 ml @ 18.75 mls/ hr TITRATE IV Last administered on 08/19/16 16:46; Admin Dose 18.75 MLS/HR; Start 08/12/16 at 06: 00 Meropenem (Merrem 500 Mg/ 100 ml (Pmx)) 100 ml @ 200 mls/hr Q24H IVPB Last administered on 08/19/16 08:41; Admin Dose 200 MLS/HR; Start 08/13/16 at 09:00 Epoetin Tutu (Epogen (Esrd)) 3,000 units TuThSa@17 SC Last administered on 08/19 16:47; Admin Dose 3,000 UNITS; Start 08/14/16 at 17:00 Epoetin Tutu (Epogen (Esrd)) 2,000 units TuThSa@17 SC Last administered on 08/19 16:51; Admin Dose 2,000 UNITS; Start 08/14/16 at 17:00 Triglycerides (Mct Oil (Ped)) 10 ml Q6 PO Last administered on 08/19/16 11:00 ; Admin Dose 10 ML; Start 08/14/16 at 12:30 Levofloxacin (Levaquin) 750 mg TuThSa PO Last administered on 08/14/16 20:42; Admin Dose 750 MG; Start 08/14/16 at 20:00 Calcium Carbonate (Tums) 500 mg TID PO Last administered on 08/19/16 12:13; Admin Dose 500 MG; Start 08/15/16 at 09:00 Midodrine 5 mg 5 mg BID@09,17 PO Last administered on 08/19/16 16:46; Admin Dose 5 MG; Start 08/15/16 at 17:00 Vasopressin 60 unit/Dextrose 60 ml @ 1.2 mls/hr Q12H IV Last administered on 17:26; Admin Dose 2.4 MLS/HR; Start 08/16/16 at 09:30 Norepinephrine 32 mg/Dextrose 250 ml @ 0.46 mls/hr TITRATE IV Last administered on 08/19/16 12:50; Admin Dose 0.93 MLS/HR; Start 08/16/16 at 13:30 Epinephrine 4 mg/ Sodium Chloride 250 ml @ 3.75 mls/hr TITRATE IV ; Start 08/16 at 14:00 Vancomycin HCl (Vancocin) 250 ml @ 125 mls/hr Q96H IVPB Last administered on 18:14; Admin Dose 125 MLS/HR; Start 08/18/16 at 16:00 Pantoprazole (Protonix Iv) 40 mg DAILY@06 IV Last administered on 08/19/16 06: 30; Admin Dose 40 MG; Start 08/18/16 at 06:00 Insulin Glargine (Lantus) 15 unit 08 SC Last administered on 08/19/16 08:36; Admin Dose 15 UNIT; Start 08/18/16 at 08:00 Insulin Aspart NOVOLOG *MILD* ALGORI... Q4 SC Last administered on 08/19/16 08 :37; Admin Dose 4 UNIT; Start 08/18/16 at 08:00 Caspofungin 35 mg/ Sodium Chloride 250 ml @ 250 mls/hr Q24H IV Last administered on 08/19/16 16:46; Admin Dose 250 MLS/HR; Start 08/18/16 at 17:00 Dextrose/Sodium Chloride (D5-1/2ns) 1,000 ml @ 125 mls/hr Q8H IV Last administered on 08/19/16t 10:13; Admin Dose 125 MLS/HR; Start 08/19/16 at 10:00 PAOLA MOODY MD Aug 19, 2016 18:00
--- NOTE | 2016-08-19 18:31 | PN ---
Date/Time of Note Date/Time of Note DATE: 08/19/16 TIME: 18:29 Assessment/Plan Lines/Catheters IV Catheter Type (from Nrsg): TRIALYSISI Jonas in Place (from Nrsg): No Assessment/Plan Chief Complaint/Hosp Course IMPRESSION: Right chest tube site bleeding, which has now subsided completely. pt coded yesterday more stable today SP VATS Decortication Chylothorax will continue CT sxn may need pleurex cath would need embolization of the thoracic duct done at [facility] continue fluid replacement discussed with Dr Saunders and J[employer] INSPECTOR Problems: Subjective 24 Hr Interval Summary Constitutional: improved Pain Control: mild Exam/Review of Systems Vital Signs Vitals Vital Signs Date Time Temp Pulse Resp B/P Pulse Ox O2 Delivery O2 Flow Rate FiO2 08/19/16 18:00 115 24 147/96 100 Mechanical Ventilator 08/19/16 17:30 100 08/19/16 16:15 98.9 08/16/16 11:00 2.0 Intake and Output 08/18/16 08/18/16 08/19/16 14:59 22:59 06:59 Intake Total 1665.55 ml 2348.47 ml 1633.5 ml Output Total 3500 ml 1015 ml Balance 1665.55 ml -1151.53 ml 618.5 ml Exam ENMT: mucosa pink and moist, nl external ears & nose, nl lips & teeth, nl nasal mucosa & septum Neck: non-tender, supple Respiratory: clear to auscultation, normal air movement Cardiovascular: nl pulses, regular rate and rhythm Results Result Diagram: 08/19/16 1645 08/19/16 0450 LILIA FELIZ MD Aug 19, 2016 18:31
--- NOTE | 2016-08-19 19:49 | CONS ---
Date/Time of Note Date/Time of Note DATE: 08/19/16 TIME: 19:33 Assessment/Plan Assessment/Plan Chief Complaint/Hosp Course - possible tubercular empyema: R sided complex loculated air containing empyemas , visceral and parietal pleural calcifications. - a 35 mm lesion with possible cavitation in the anterior inferior RUL, possible recurrent tuberculosis - high risk for TB: history (originally from [facility], spends one month of each year in [facility], last in 09/2015), medical history (DM, ESRD), laboratory findings (positive quantiferon TB gold, granulomatous inflammation with focal necrosis on Bx of pleura) - AFB smear was negative x3, also M. tuberculosis DNA probe to the 1st sputum sample was undetectable in early 07/2016; mycobacterium tuberculosis DNA probe to fluid in GUIDO bulb sent on 08/06/2016 was negative - s/p first R VATS, total pulmonary decortication, R pleurodesis on 06/30/2016. Biopsy was negative for fungal stain and AFB stain (micro lab and pathology department), as well as malignancy. It showed granulomatous inflammation with focal necrosis and extensive hyalinization. - s/p second R VATS, decortication thoracotomy on 08/04/2016. Per Dr. Martinez, the tissue did not appear empyema. It was largely blood clots and tissue debris. Fluid was sent for cultures, but not tissue. Path showed blood and polarizable foreign material, no malignancy - sputum collected on 08/02/2016 was negative for mycobacterium tuberculosis DNA probe - h/o recurrent pleural effusion requiring thoracentesis approximately once a year, last performed in 04/2016 prior to this admission - positive quantiferon TB gold status of unknown duration. Per Pt, his past PPD was done in 2013, and was negative. - Our infection casino controller Lindsey contacted the TB control unit at [facility]: we learned on 07/11/2016 that Pt has h/o mycobacterial tuberculosis infection in 1997 and was treated between 1997 and 1998. - DM s/p hypoglycemic episode on 08/04/16 & 08/06/16 (Hgb A1c 5.2% on 06/17/16 unreliable d/t recent blood transfusion; Hgb A1c 8.6% on 05/03/15) - ESRD on HD - CAD s/p CABG in 2010 and cardiac stent in 2013 - Moderate to severe protein calorie malnutrition - HIV screen negative in 07/2016 tested at [facility] - Sepsis vs SIRS; Procalc 10.04 on 08/09/16 - Hypotension requiring Levophed & Dopamine - Hyperbilirubinemia - Hyponatremia - Hypocalcemia - Shock, hypovolemic +/- septic, on pressor support - PEA arrest 08/16/16 - Acute respiratory failure s/p intubation 08/16/16 - Elevated troponin - LGIB - positive 1,3-qsnv-E-glucan level, colonization of the airway due to rik Recommendations: - will review the results of blood cultures x2 from 08/16/2016, - cocci CF was reportedly completed today 08/19/2016 but no results are scanned into [facility] - repeat LFTs - continue empiric jae/caspofungin (08/09/16-), IV vanc (08/16/2016-) - continue renally dosed PO levofloxacin 750 mg 3x/week after HD (08/12/16-), isoniazid, pyrazinamide, ethambutol and vitamin B6 supplement (07/12/2016-) as recommended by TB Control. Levofloxacin replaced rifampin due to hyperbilirubinemia management d/w Pt's RN the critical care time I took to care for this Pt today was from 1845 to 1930 Problems: Consultation Date/Type/Reason Admit Date/Time Jul 24, 2016 at 12:53 Initial Consult Date 07/25/16 Type of Consultation: ID Referring Provider: EVA COX MD 24 HR Interval Summary Free Text/Dictation had SVT, hypotensive episodes today Subjective hx not possible: pt non-verbal Exam/Review of Systems Vital Signs Vitals Vital Signs Date Time Temp Pulse Resp B/P Pulse Ox O2 Delivery O2 Flow Rate FiO2 08/19/16 18:00 115 24 147/96 100 Mechanical Ventilator 08/19/16 17:30 100 08/19/16 16:15 98.9 08/16/16 11:00 2.0 Intake and Output 08/18/16 08/18/16 08/19/16 14:59 22:59 06:59 Intake Total 1665.55 ml 2348.47 ml 1633.5 ml Output Total 3500 ml 1015 ml Balance 1665.55 ml -1151.53 ml 618.5 ml Exam Constitutional: non-verbal Head: atraumatic, normocephalic Eyes: nl lids, nl sclera ENMT: intubated, nl external ears & nose Respiratory: diminished breath sounds, other (chest tube in place) Cardiovascular: regular rate and rhythm Gastrointestinal: non-tender, soft Musculoskeletal: nl extremities to inspection Extremities: No edema Neurological: other (sedated), unresponsive Skin: nl turgor Results Result Diagram: 08/19/16 1645 08/19/16 0450 Results 24 hrs Laboratory Tests Test 08/18/16 21:24 08/18/16 22:00 08/19/16 00:38 08/19/16 04:34 Bedside Glucose 125 208 249 H Hemoglobin 10.0 L Hematocrit 27.3 L Test 08/19/16 04:50 08/19/16 07:00 08/19/16 08:31 08/19/16 09:15 White Blood Count 13.4 H Red Blood Count 3.17 L Hemoglobin 9.5 L Hematocrit 26.7 L Mean Corpuscular Volume 84.2 Mean Corpuscular Hemoglobin 30.0 Mean Corpuscular Hemoglobin Concent 35.6 Red Cell Distribution Width 16.3 H Platelet Count 54 #L 30 #L Mean Platelet Volume 12.2 H Neutrophils % 91.5 H Lymphocytes % 2.5 L Monocytes % 4.5 Eosinophils % 0.7 Basophils % 0.1 Nucleated Red Blood Cells % 0.0 Neutrophils # 12.3 H Lymphocytes # 0.3 L Monocytes # 0.6 Eosinophils # 0.1 Basophils # 0.0 Nucleated Red Blood Cells # 0.0 Sodium Level 131 L Potassium Level 3.1 L Chloride Level 91 L Carbon Dioxide Level 28 Anion Gap 15 Blood Urea Nitrogen 32 #H Creatinine 3.72 #H Glucose Level 221 H Calcium Level 6.3 L Phosphorus Level 2.3 #L Magnesium Level 1.8 Blood Gas Specimen Source Blood arterial Arterial Blood Date Drawn 08/19/2016 7:53:57 AM Arterial Blood pH (Temp corrected) 7.546 H Arterial Blood pCO2 (Temp correct) 28.9 L Arterial Blood pO2 (Temp corrected) 150.0 H Arterial Blood HCO3 24.5 Arterial Blood Base Excess 2.5 Arterial Blood Oxygen Saturation 98.6 H Yoshi Test ACCEPTAB Arterial Blood Gas Puncture Site Left Radial Arterial Blood Carboxyhemoglobin 0.9 Arterial Blood Methemoglobin 0.6 Blood Gas A-a O2 Differential 66.0 H Oxyhemoglobin Percent 97.1 Total Hemoglobin 9.9 L Blood Gas Temperature 37.0 Blood Gas Respiration Rate 20.0 Blood Gas Actual Respiration Rate 22 Blood Gas Modality VENT - AC FiO2 35.0 Blood Gas Tidal Volume 500.0 Blood Gas Low PEEP Setting 0 Blood Gas Notified Whom JLD Blood Gas Notified Time 08/19/2016 8:33:02 AM Bedside Glucose 270 H Prothrombin Time 16.2 H Prothrombin Time Ratio 1.3 INR International Normalized Ratio 1.29 Activated Partial Thromboplast Time 39.4 H Thrombin Time 16.9 Fibrinogen 156.0 #L Plasma Fibrin Degradation Products <10 D-Dimer 6261.38 #H D-Dimer Comment Test 08/19/16 12:08 08/19/16 16:43 08/19/16 16:45 08/19/16 17:05 Bedside Glucose 75 48 *L 89 Hemoglobin 12.0 #L Hematocrit 32.7 #L Test 08/19/16 17:30 08/19/16 18:34 Bedside Glucose 112 96 Medications Medications Current Medications Aspirin (Halfprin) 81 mg DAILY PO Last administered on 08/16/16 08:21; Admin Dose 81 MG; Start 07/25/16 at 09:00; Status Future Hold Atorvastatin Calcium (Lipitor) 10 mg QHS PO Last administered on 08/15/16 21: 40; Admin Dose 10 MG; Start 07/24/16 at 21:00; Status Future Hold Cholecalciferol (Vitamin D) 400 units DAILY PO Last administered on 08/19/16 08:32; Admin Dose 400 UNITS; Start 07/25/16 at 09:00 Famotidine (Pepcid) 20 mg DAILY PO Last administered on 08/19/16 08:32; Admin Dose 20 MG; Start 07/25/16 at 09:00 Ferrous Sulfate (Ferrous Sulfate (Ec)) 325 mg BID PO Last administered on 08:32; Admin Dose 325 MG; Start 07/24/16 at 21:00 Acetaminophen/ Hydrocodone Bitart ([place] (5/325)) 1 tab Q4H PRN PO PAIN Last administered on 08/14/16 14:11; Admin Dose 1 TAB; Start 07/24/16 at 17:00 Isoniazid (Isoniazid) 300 mg DAILY PO Last administered on 08/19/16 08:32; Admin Dose 300 MG; Start 07/24/16 at 15:30 Pyridoxine HCl (Vitamin B6) 50 mg DAILY PO Last administered on 08/19/16 08:38 ; Admin Dose 50 MG; Start 07/25/16 at 09:00 Miscellaneous Information 1 ea NOTE XX ; Start 07/24/16 at 16:00 Glucose (Glutose) 15 gm Q15M PRN PO DECREASED GLUCOSE; Start 07/24/16 at 16:00 Glucose (Glutose) 22.5 gm Q15M PRN PO DECREASED GLUCOSE; Start 07/24/16 at 16: 00 Dextrose (D50w Syringe) 25 ml Q15M PRN IV DECREASED GLUCOSE Last administered on 08/17/16 19:48; Admin Dose 25 ML; Start 07/24/16 at 16:00 Dextrose (D50w Syringe) 50 ml Q15M PRN IV DECREASED GLUCOSE Last administered on 08/17/16 21:38; Admin Dose 50 ML; Start 07/24/16 at 16:00 Glucagon (Glucagen) 1 mg Q15M PRN IM DECREASED GLUCOSE; Start 07/24/16 at 16:00 Glucose (Glutose) 15 gm Q15M PRN BUCCAL DECREASED GLUCOSE; Start 07/24/16 at 16 :00 Ondansetron HCl (Zofran Inj) 4 mg Q4 PRN IV nausea Last administered on 21:40; Admin Dose 4 MG; Start 07/24/16 at 17:00 Metoclopramide HCl (Reglan) 5 mg Q4H PRN IV NAUSEA Last administered on 16:40; Admin Dose 5 MG; Start 07/24/16 at 22:30 Hydralazine HCl (Apresoline) 20 mg Q4 PRN IV ELEVATED BLOOD PRESSURE Last administered on 08/04/16 16:35; Admin Dose 20 MG; Start 07/28/16 at 02:00 Polyethylene Glycol (Miralax) 17 gm DAILY PRN GTB CONSTIPATION Last administered on 07/28/16 20:22; Admin Dose 17 GM; Start 07/28/16 at 19:30 Lorazepam (Ativan) 1 mg Q4H PRN IV anxiety Last administered on 08/19/16 07:52 ; Admin Dose 1 MG; Start 07/29/16 at 06:30 Ethambutol HCl (Myambutol) 900 mg TuThSa@20 PO Last administered on 08/13/16 21:41; Admin Dose 900 MG; Start 07/31/16 at 20:00 Pyrazinamide (Pyrazinamide) 1,250 mg TuThSa@20 PO Last administered on 21:44; Admin Dose 1,250 MG; Start 07/31/16 at 20:00 Hydromorphone HCl (Dilaudid) 1 mg Q2H PRN IV pain Last administered on 11:23; Admin Dose 1 MG; Start 08/02/16 at 19:00 Zolpidem Tartrate (Ambien) 5 mg HS PRN PO INSOMNIA Last administered on 22:40; Admin Dose 5 MG; Start 08/08/16 at 21:00 Benazepril HCl (Lotensin) 10 mg BID PO ; Start 08/09/16 at 09:00; Status Future Hold Metoprolol Tartrate 25 mg 25 mg BID GTB Last administered on 08/14/16 20:42; Admin Dose 25 MG; Start 08/09/16 at 21:00 Sodium Chloride 1,000 ml @ 50 mls/hr Q20H IV Last administered on 08/14/16 17 :48; Admin Dose 50 MLS/HR; Start 08/09/16 at 17:30; Status Future Hold Dopamine HCl/ Dextrose (D5W) 250 ml @ 1.71 mls/hr TITRATE IV Last administered on 08/11/16 15:07; Admin Dose 11.43 MLS/HR; Start 08/10/16 at 15:30 Acetaminophen (Tylenol Tab) 650 mg Q6H PRN PO PAIN AND OR ELEVATED TEMP Last administered on 08/12/16 00:54; Admin Dose 650 MG; Start 08/10/16 at 16:30 Clopidogrel Bisulfate 75 mg 75 mg DAILY PO Last administered on 08/16/16 08:21 ; Admin Dose 75 MG; Start 08/11/16 at 12:00; Status Future Hold Phenylephrine HCl 160 mg/Dextrose 500 ml @ 18.75 mls/ hr TITRATE IV Last administered on 08/19/16 16:46; Admin Dose 18.75 MLS/HR; Start 08/12/16 at 06: 00 Meropenem (Merrem 500 Mg/ 100 ml (Pmx)) 100 ml @ 200 mls/hr Q24H IVPB Last administered on 08/19/16 08:41; Admin Dose 200 MLS/HR; Start 08/13/16 at 09:00 Epoetin Tutu (Epogen (Esrd)) 3,000 units TuThSa@17 SC Last administered on 08/19 16:47; Admin Dose 3,000 UNITS; Start 08/14/16 at 17:00 Epoetin Tutu (Epogen (Esrd)) 2,000 units TuThSa@17 SC Last administered on 08/19 16:51; Admin Dose 2,000 UNITS; Start 08/14/16 at 17:00 Triglycerides (Mct Oil (Ped)) 10 ml Q6 PO Last administered on 08/19/16 11:00 ; Admin Dose 10 ML; Start 08/14/16 at 12:30 Levofloxacin (Levaquin) 750 mg TuThSa PO Last administered on 08/14/16 20:42; Admin Dose 750 MG; Start 08/14/16 at 20:00 Calcium Carbonate (Tums) 500 mg TID PO Last administered on 08/19/16 12:13; Admin Dose 500 MG; Start 08/15/16 at 09:00 Midodrine 5 mg 5 mg BID@,17 PO Last administered on 08/19/16 16:46; Admin Dose 5 MG; Start 08/15/16 at 17:00 Vasopressin 60 unit/Dextrose 60 ml @ 1.2 mls/hr Q12H IV Last administered on 17:26; Admin Dose 2.4 MLS/HR; Start 08/16/16 at 09:30 Norepinephrine 32 mg/Dextrose 250 ml @ 0.46 mls/hr TITRATE IV Last administered on 08/19/16 12:50; Admin Dose 0.93 MLS/HR; Start 08/16/16 at 13:30 Epinephrine 4 mg/ Sodium Chloride 250 ml @ 3.75 mls/hr TITRATE IV ; Start 08/16 at 14:00 Vancomycin HCl (Vancocin) 250 ml @ 125 mls/hr Q96H IVPB Last administered on 18:14; Admin Dose 125 MLS/HR; Start 08/18/16 at 16:00 Pantoprazole (Protonix Iv) 40 mg DAILY@06 IV Last administered on 08/19/16 06: 30; Admin Dose 40 MG; Start 08/18/16 at 06:00 Insulin Glargine (Lantus) 15 unit 08 SC Last administered on 08/19/16 08:36; Admin Dose 15 UNIT; Start 08/18/16 at 08:00 Insulin Aspart NOVOLOG *MILD* ALGORI... Q4 SC Last administered on 08/19/16 08 :37; Admin Dose 4 UNIT; Start 08/18/16 at 08:00 Caspofungin 35 mg/ Sodium Chloride 250 ml @ 250 mls/hr Q24H IV Last administered on 08/19/16 16:46; Admin Dose 250 MLS/HR; Start 08/18/16 at 17:00 Dextrose/Sodium Chloride (D5-1/2ns) 1,000 ml @ 125 mls/hr Q8H IV Last administered on 08/19/16 10:13; Admin Dose 125 MLS/HR; Start 08/19/16 at 10:00 YUMIKO NICHOLSON M.D. Aug 19, 2016 19:43
[2016-08-19 20:01] LABS: PARTIAL THROMBOPLASTIN TIME 32.2 Sec (25.0-35.0); PROTIME 14.2 Sec (12.2-14.2); PT RATIO 1.1
[2016-08-19 20:41] LABS: D-DIMER 9023.77 ng/ml (<460)
[2016-08-19 20:42] LABS: THROMBIN TIME 16.3 SEC (13.8-19.1)
[2016-08-19 20:45] LABS: PLATELET COUNT 125 10^3/UL (140-440)
[2016-08-19 20:46] LABS: FIBRIN SPLIT PRODUCT <10 ug/ml (<10)
[2016-08-19] MEDS: ETHAMBUTOL 400 MG TAB PO SCH (21:48)
[2016-08-19] MEDS: LEVOFLOXACIN 750 MG TABLET PO SCH (21:48)
[2016-08-19] MEDS: PYRAZINAMIDE 500 MG TAB PO SCH (21:49)
[2016-08-19] MEDS: HYDROCODONE/APAP (5/325) TAB PO PRN (22:01)
--- NOTE | 2016-08-19 22:30 | PN ---
DATE: CHIEF COMPLAINT: At this time, patient is unable to communicate. He is intubated. He has been hav ing rectal bleeding. He had a coagulopathy, thrombocytopenia, high INR, and he was given fresh froz en plasma, cryoprecipitate, vitamin K, and platelet transfusion. Now, he has been having green stoo ls. He has respiratory failure, was intubated. PHYSICAL EXAMINATION: GENERAL: He is intubated. He is unable to communicate. He is still on the vasopressors. VITAL SIGNS: Pulse is 110, blood pressure is down to 90 systolic. CLINICAL IMPRESSION: Lower gastrointestinal bleeding is stable. At this time, correct the coagulop athy and will continue to follow the patient. Dictated By: CLAUDIO MUNIZ MD NC/NTS Conf#: [id number] DID#: [id number] CC: EVA COX MD; CLAUDIO MUNIZ MD;*EndCC*
[2016-08-20] VITALS (79 sets, daily range): BP systolic 69–156; BP diastolic 46–115; PULSE 74–95; RESP 13–28
[2016-08-20] MEDS: MED CHAIN TRIGLYCERIDES (PO SYG) PO SCH ×4 (00:21→17:30)
[2016-08-20] MEDS: DEXTROSE 50% 50 ML SYRINGE IV PRN (00:42)
[2016-08-20] MEDS: INSULIN ASPART [NOVOLOG] 3 ML PEN SC SCH ×5 (00:46→16:25)
[2016-08-20] MEDS ORDERED: DEXTROSE 10% 1,000 ML IV SCH (01:00)
[2016-08-20 04:35] LABS: ADD SCAN DIFF NO
[2016-08-20 04:55] LABS: ALBUMIN 1.8 g/dl (3.3-4.9); POTASSIUM 3.1 mmol/L (3.5-5.1)
[2016-08-20 04:57] LABS: CREATININE 4.32 mg/dl (0.61-1.24)
[2016-08-20 04:58] LABS: BILIRUBIN,INDIRECT 2.1 mg/dl (0-1.1); BILIRUBIN,TOTAL 6.1 mg/dl (0.2-1.3); TOTAL PROTEIN 3.6 g/dl (6.1-8.1)
[2016-08-20] MEDS: PANTOPRAZOLE 40 MG INJ IV SCH (05:14)
[2016-08-20 05:16] LABS: ABNORMAL IP MESSAGE 1; BASOPHILS % 0.2 % (0.0-2.0); EOSINOPHILS % 0.3 % (0.0-7.0); HEMATOCRIT 25.9 % (42.0-52.0); HEMOGLOBIN 9.4 g/dl (14.0-18.0); LYMPHOCYTES # 0.3 10^3/ul (0.8-2.9); LYMPHOCYTES % 2.4 % (15.0-51.0); MEAN CORPUSCULAR HEMOGLOBIN 30.7 pg (29.0-33.0); MEAN CORPUSCULAR HGB CONC 36.3 g/dl (32.0-37.0); MEAN CORPUSCULAR VOLUME 84.6 fl (82.0-101.0); MEAN PLATELET VOLUME 11.5 fl (7.4-10.4); MONOCYTE # 0.7 10^3/ul (0.3-0.9); MONOCYTES % 6.1 % (0.0-11.0); NEUTROPHIL # 10.7 10^3/ul (1.6-7.5); PLATELET COUNT 68 10^3/UL (140-415); RED BLOOD COUNT 3.06 10^6/ul (4.70-6.10); RED CELL DISTRIBUTION WIDTH 16.9 % (11.5-14.5); WHITE BLOOD COUNT 11.9 10^3/ul (4.8-10.8)
[2016-08-20 05:24] LABS: CALCIUM 5.5 mg/dl (8.4-10.2)
[2016-08-20] MEDS: VASOPRESSIN 60 UNIT in DEXTROSE 5% 57 ML IV SCH (05:39)
[2016-08-20] MEDS: DEXTROSE 5%-0.45% NACL 1,000 ML IV SCH ×3 (07:15→17:31)
[2016-08-20] MEDS: MIDODRINE 5 MG TAB PO SCH ×2 (08:12→16:27)
[2016-08-20] MEDS: MEROPENEM 500 MG/100 ML (PMX) 100 ML IVPB SCH (08:13)
[2016-08-20] MEDS: FERROUS SULFATE (EC) 325 MG TAB PO SCH (08:13)
[2016-08-20] MEDS: PYRIDOXINE 50 MG TAB PO SCH (08:13)
[2016-08-20] MEDS: CHOLECALCIFEROL 400 UNITS TAB PO SCH (08:13)
[2016-08-20] MEDS: CALCIUM CARBONATE 500 MG CHEW TAB PO SCH ×2 (08:13→13:02)
[2016-08-20] MEDS: FAMOTIDINE 20 MG TAB PO SCH (08:13)
[2016-08-20] MEDS: ISONIAZID 300 MG TAB PO SCH (08:13)
[2016-08-20] MEDS: METOPROLOL 25 MG TAB GTB SCH (08:14)
[2016-08-20] MEDS ORDERED: POTASSIUM CHLORIDE 30 MEQ in SOD CHLORIDE 0.9% 150 ML IVPB ONE (08:30)
[2016-08-20] MEDS ORDERED: CALCIUM GLUCONATE 10% 1 GM in SOD CHLORIDE 0.9% 100 ML IVPB SCH (09:00)
[2016-08-20] MEDS: INSULIN GLARGINE [LANtus] 3 ML PEN SC SCH (09:08)
--- NOTE | 2016-08-20 09:12 | CONS ---
Date/Time of Note Date/Time of Note DATE: 08/20/16 TIME: 09:09 Assessment/Plan Assessment/Plan Additional Assessment/Plan Ventilator settings; AC of 20, tidal volume 500, PEEP of 0, 40% FiO2. Assessment recommendations; 1. Patient admitted for recurrent right pleural effusion status post VATS. 2. 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 3. Prior history of coronary artery disease status post bypass surgery. 4. End-stage renal disease. 5. Thrombocytopenia. 6. Coagulopathy. Status blood product transfusion. Continue current supportive care. Patient awaiting [facility] for repair of thoracic duct. Prognosis remains guarded. Consultation Date/Type/Reason Admit Date/Time Jul 24, 2016 at 12:53 Initial Consult Date 07/25/16 Type of Consultation: Pulmonary/critical care Referring Provider: EVA COX MD 24 HR Interval Summary Free Text/Dictation Patient condition remains critical. Still requiring high-dose pressor support with combination phenylephrine and vasopressin drips. Patient is however awake. General exam; elderly male, on ventilator, orally intubated. Exam/Review of Systems Vital Signs Vitals Vital Signs Date Time Temp Pulse Resp B/P Pulse Ox O2 Delivery O2 Flow Rate FiO2 08/20/16 08:15 81 21 105/53 100 Mechanical Ventilator 08/20/16 07:22 40 08/20/16 07:15 98.5 08/16/16 11:00 2.0 Intake and Output 08/19/16 08/19/16 08/20/16 15:00 23:00 07:00 Intake Total 1038.55 ml 1240.09 ml 960.94 ml Output Total 0 ml 850 ml 600 ml Balance 1038.55 ml 390.09 ml 360.94 ml Exam HEENT examination; supple neck, positive JVD. No lymphadenopathy. Midline trachea. No thyromegaly. Orally intubated. Pupils are midsize reactive to light. Chest exam is; diminished but clear breath sound bilaterally right chest tube in place. Draining copious amounts of chylous fluid. There is a well-healed sternal scar. Pacemaker left chest wall. S1-S2 audible, no murmurs. Regular rhythm. Abdomen exam is; soft, non-distended. No organomegaly. Bowel sounds audible. Extremity exam; no peripheral edema. Pulses 1+ bilaterally. 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 Results Result Diagram: 08/20/16 0355 08/20/16 0355 Results 24 hrs Laboratory Tests Test 08/19/16 09:15 08/19/16 12:08 08/19/16 16:43 08/19/16 16:45 Platelet Count 30 #L Prothrombin Time 16.2 H Prothrombin Time Ratio 1.3 INR International Normalized Ratio 1.29 Activated Partial Thromboplast Time 39.4 H Thrombin Time 16.9 Fibrinogen 156.0 #L Plasma Fibrin Degradation Products <10 D-Dimer 6261.38 #H D-Dimer Comment Bedside Glucose 75 48 *L Hemoglobin 12.0 #L Hematocrit 32.7 #L Test 08/19/16 17:05 08/19/16 17:30 08/19/16 18:34 08/19/16 19:05 Bedside Glucose 89 112 96 Platelet Count 125 #L Prothrombin Time 14.2 Prothrombin Time Ratio 1.1 INR International Normalized Ratio 1.10 Activated Partial Thromboplast Time 32.2 Thrombin Time 16.3 Fibrinogen 252.0 # Plasma Fibrin Degradation Products <10 D-Dimer 9023.77 #H D-Dimer Comment Test 08/19/16 19:47 08/19/16 20:49 08/20/16 00:40 08/20/16 01:01 Bedside Glucose 86 97 51 L 99 Test 08/20/16 01:18 08/20/16 02:45 08/20/16 03:55 08/20/16 04:26 Bedside Glucose 90 158 188 White Blood Count 11.9 H Red Blood Count 3.06 L Hemoglobin 9.4 #L Hematocrit 25.9 #L Mean Corpuscular Volume 84.6 Mean Corpuscular Hemoglobin 30.7 Mean Corpuscular Hemoglobin Concent 36.3 Red Cell Distribution Width 16.9 H Platelet Count 68 #L Mean Platelet Volume 11.5 H Neutrophils % 90.0 H Lymphocytes % 2.4 L Monocytes % 6.1 Eosinophils % 0.3 Basophils % 0.2 Nucleated Red Blood Cells % 0.0 Neutrophils # 10.7 H Lymphocytes # 0.3 L Monocytes # 0.7 Eosinophils # 0.0 Basophils # 0.0 Nucleated Red Blood Cells # 0.0 Sodium Level 125 L Potassium Level 3.1 L Chloride Level 90 L Carbon Dioxide Level 25 Anion Gap 13 Blood Urea Nitrogen 40 H Creatinine 4.32 H Glucose Level 172 Calcium Level 5.5 *L Total Bilirubin 6.1 H Direct Bilirubin 4.00 H Indirect Bilirubin 2.1 H Aspartate Amino Transf (AST/SGOT) 71 H Alanine Aminotransferase (ALT/SGPT) 33 Alkaline Phosphatase 165 H Total Protein 3.6 L Albumin 1.8 L Globulin 1.80 Albumin/Globulin Ratio 1.00 Medications Medications Current Medications Aspirin (Halfprin) 81 mg DAILY PO Last administered on 08/16/16 08:21; Admin Dose 81 MG; Start 07/25/16 at 09:00; Status Future Hold Atorvastatin Calcium (Lipitor) 10 mg QHS PO Last administered on 08/15/16 21: 40; Admin Dose 10 MG; Start 07/24/16 at 21:00; Status Future Hold Cholecalciferol (Vitamin D) 400 units DAILY PO Last administered on 08/20/16 08:13; Admin Dose 400 UNITS; Start 07/25/16 at 09:00 Famotidine (Pepcid) 20 mg DAILY PO Last administered on 08/20/16 08:13; Admin Dose 20 MG; Start 07/25/16 at 09:00 Ferrous Sulfate (Ferrous Sulfate (Ec)) 325 mg BID PO Last administered on 08:13; Admin Dose 325 MG; Start 07/24/16 at 21:00 Acetaminophen/ Hydrocodone Bitart ([place] (5/325)) 1 tab Q4H PRN PO PAIN Last administered on 08/19/16 22:01; Admin Dose 1 TAB; Start 07/24/16 at 17:00 Isoniazid (Isoniazid) 300 mg DAILY PO Last administered on 08/20/16 08:13; Admin Dose 300 MG; Start 07/24/16 at 15:30 Pyridoxine HCl (Vitamin B6) 50 mg DAILY PO Last administered on 08/20/16 08:13 ; Admin Dose 50 MG; Start 07/25/16 at 09:00 Miscellaneous Information 1 ea NOTE XX ; Start 07/24/16 at 16:00 Glucose (Glutose) 15 gm Q15M PRN PO DECREASED GLUCOSE; Start 07/24/16 at 16:00 Glucose (Glutose) 22.5 gm Q15M PRN PO DECREASED GLUCOSE; Start 07/24/16 at 16: 00 Dextrose (D50w Syringe) 25 ml Q15M PRN IV DECREASED GLUCOSE Last administered on 08/20/16 00:42; Admin Dose 25 ML; Start 07/24/16 at 16:00 Dextrose (D50w Syringe) 50 ml Q15M PRN IV DECREASED GLUCOSE Last administered on 08/17/16 21:38; Admin Dose 50 ML; Start 07/24/16 at 16:00 Glucagon (Glucagen) 1 mg Q15M PRN IM DECREASED GLUCOSE; Start 07/24/16 at 16:00 Glucose (Glutose) 15 gm Q15M PRN BUCCAL DECREASED GLUCOSE; Start 07/24/16 at 16 :00 Ondansetron HCl (Zofran Inj) 4 mg Q4 PRN IV nausea Last administered on 21:40; Admin Dose 4 MG; Start 07/24/16 at 17:00 Metoclopramide HCl (Reglan) 5 mg Q4H PRN IV NAUSEA Last administered on 16:40; Admin Dose 5 MG; Start 07/24/16 at 22:30 Hydralazine HCl (Apresoline) 20 mg Q4 PRN IV ELEVATED BLOOD PRESSURE Last administered on 08/04/16 16:35; Admin Dose 20 MG; Start 07/28/16 at 02:00 Polyethylene Glycol (Miralax) 17 gm DAILY PRN GTB CONSTIPATION Last administered on 07/28/16 20:22; Admin Dose 17 GM; Start 07/28/16 at 19:30 Lorazepam (Ativan) 1 mg Q4H PRN IV anxiety Last administered on 08/19/16 07:52 ; Admin Dose 1 MG; Start 07/29/16 at 06:30 Ethambutol HCl (Myambutol) 900 mg TuThSa@20 PO Last administered on 08/19/16 21:48; Admin Dose 900 MG; Start 07/31/16 at 20:00 Pyrazinamide (Pyrazinamide) 1,250 mg TuThSa@20 PO Last administered on 21:49; Admin Dose 1,250 MG; Start 07/31/16 at 20:00 Hydromorphone HCl (Dilaudid) 1 mg Q2H PRN IV pain Last administered on 11:23; Admin Dose 1 MG; Start 08/02/16 at 19:00 Zolpidem Tartrate (Ambien) 5 mg HS PRN PO INSOMNIA Last administered on 22:40; Admin Dose 5 MG; Start 08/08/16 at 21:00 Benazepril HCl (Lotensin) 10 mg BID PO ; Start 08/09/16 at 09:00; Status Future Hold Metoprolol Tartrate 25 mg 25 mg BID GTB Last administered on 08/14/16 20:42; Admin Dose 25 MG; Start 08/09/16 at 21:00 Sodium Chloride 1,000 ml @ 50 mls/hr Q20H IV Last administered on 08/14/16 17 :48; Admin Dose 50 MLS/HR; Start 08/09/16 at 17:30; Status Future Hold Dopamine HCl/ Dextrose (D5W) 250 ml @ 1.71 mls/hr TITRATE IV Last administered on 08/11/16 15:07; Admin Dose 11.43 MLS/HR; Start 08/10/16 at 15:30 Acetaminophen (Tylenol Tab) 650 mg Q6H PRN PO PAIN AND OR ELEVATED TEMP Last administered on 08/12/16 00:54; Admin Dose 650 MG; Start 08/10/16 at 16:30 Clopidogrel Bisulfate 75 mg 75 mg DAILY PO Last administered on 08/16/16 08:21 ; Admin Dose 75 MG; Start 08/11/16 at 12:00; Status Future Hold Phenylephrine HCl 160 mg/Dextrose 500 ml @ 18.75 mls/ hr TITRATE IV Last administered on 08/19/16 16:46; Admin Dose 18.75 MLS/HR; Start 08/12/16 at 06: 00 Meropenem (Merrem 500 Mg/ 100 ml (Pmx)) 100 ml @ 200 mls/hr Q24H IVPB Last administered on 08/20/16 08:13; Admin Dose 200 MLS/HR; Start 08/13/16 at 09:00 Epoetin Tutu (Epogen (Esrd)) 3,000 units TuThSa@17 SC Last administered on 08/19 16:47; Admin Dose 3,000 UNITS; Start 08/14/16 at 17:00 Epoetin Tutu (Epogen (Esrd)) 2,000 units TuThSa@17 SC Last administered on 08/19 16:51; Admin Dose 2,000 UNITS; Start 08/14/16 at 17:00 Triglycerides (Mct Oil (Ped)) 10 ml Q6 PO Last administered on 08/20/16 05:14 ; Admin Dose 10 ML; Start 08/14/16 at 12:30 Levofloxacin (Levaquin) 750 mg TuThSa PO Last administered on 08/19/16 21:48; Admin Dose 750 MG; Start 08/14/16 at 20:00 Calcium Carbonate (Tums) 500 mg TID PO Last administered on 08/20/16 08:13; Admin Dose 500 MG; Start 08/15/16 at 09:00 Midodrine 5 mg 5 mg BID@17 PO Last administered on 08/20/16 08:12; Admin Dose 5 MG; Start 08/15/16 at 17:00 Vasopressin 60 unit/Dextrose 60 ml @ 1.2 mls/hr Q12H IV Last administered on 05:39; Admin Dose 2.4 MLS/HR; Start 08/16/16 at 09:30 Norepinephrine 32 mg/Dextrose 250 ml @ 0.46 mls/hr TITRATE IV Last administered on 08/19/16 12:50; Admin Dose 0.93 MLS/HR; Start 08/16/16 at 13:30 Epinephrine 4 mg/ Sodium Chloride 250 ml @ 3.75 mls/hr TITRATE IV ; Start 08/16 at 14:00 Vancomycin HCl (Vancocin) 250 ml @ 125 mls/hr Q96H IVPB Last administered on 18:14; Admin Dose 125 MLS/HR; Start 08/18/16 at 16:00 Pantoprazole (Protonix Iv) 40 mg DAILY@06 IV Last administered on 08/20/16 05: 14; Admin Dose 40 MG; Start 08/18/16 at 06:00 Insulin Glargine (Lantus) 15 unit 08 SC Last administered on 08/19/16 08:36; Admin Dose 15 UNIT; Start 08/18/16 at 08:00 Insulin Aspart NOVOLOG *MILD* ALGORI... Q4 SC Last administered on 08/20/16 04 :34; Admin Dose 2 UNIT; Start 08/18/16 at 08:00 Caspofungin 35 mg/ Sodium Chloride 250 ml @ 250 mls/hr Q24H IV Last administered on 08/19/16 16:46; Admin Dose 250 MLS/HR; Start 08/18/16 at 17:00 Calcium Gluconate 1 gm/Sodium Chloride 110 ml @ 110 mls/hr BID IVPB ; Start at 09:00; Stop 08/20/16 at 21:30 Potassium Chloride 30 meq/ Sodium Chloride 165 ml @ 55 mls/hr ONCE ONCE IVPB ; Start 08/20/16 at 08:30; Stop 08/20/16 at 11:29 Dextrose/Sodium Chloride (D5-1/2ns) 1,000 ml @ 120 mls/hr Q8H20M IV Last administered on 08/20/16 07:15; Admin Dose 120 MLS/HR; Start 08/20/16 at 06:30 BOONE POLO Aug 20, 2016 09:12
--- NOTE | 2016-08-20 10:10 | CONS ---
Date/Time of Note Date/Time of Note DATE: 08/20/16 TIME: 10:08 Assessment/Plan Assessment/Plan Chief Complaint/Hosp Course - possible tubercular empyema: R sided complex loculated air containing empyemas , visceral and parietal pleural calcifications. - a 35 mm lesion with possible cavitation in the anterior inferior RUL, possible recurrent tuberculosis - high risk for TB: history (originally from [facility], spends one month of each year in [facility], last in 09/2015), medical history (DM, ESRD), laboratory findings (positive quantiferon TB gold, granulomatous inflammation with focal necrosis on Bx of pleura) - AFB smear was negative x3, also M. tuberculosis DNA probe to the 1st sputum sample was undetectable in early 07/2016; mycobacterium tuberculosis DNA probe to fluid in GUIDO bulb sent on 08/06/2016 was negative - s/p first R VATS, total pulmonary decortication, R pleurodesis on 06/30/2016. Biopsy was negative for fungal stain and AFB stain (micro lab and pathology department), as well as malignancy. It showed granulomatous inflammation with focal necrosis and extensive hyalinization. - s/p second R VATS, decortication thoracotomy on 08/04/2016. Per Dr. Martinez, the tissue did not appear empyema. It was largely blood clots and tissue debris. Fluid was sent for cultures, but not tissue. Path showed blood and polarizable foreign material, no malignancy - sputum collected on 08/02/2016 was negative for mycobacterium tuberculosis DNA probe - h/o recurrent pleural effusion requiring thoracentesis approximately once a year, last performed in 04/2016 prior to this admission - positive quantiferon TB gold status of unknown duration. Per Pt, his past PPD was done in 2013, and was negative. - Our infection process control supervisor Lindsey contacted the TB control unit at [facility]: we learned on 07/11/2016 that Pt has h/o mycobacterial tuberculosis infection in 1997 and was treated between 1997 and 1998. - DM s/p hypoglycemic episode on 08/04/16 & 08/06/16 (Hgb A1c 5.2% on 06/17/16 unreliable d/t recent blood transfusion; Hgb A1c 8.6% on 05/03/15) - ESRD on HD - CAD s/p CABG in 2010 and cardiac stent in 2013 - Moderate to severe protein calorie malnutrition - HIV screen negative in 07/2016 tested at [facility] - Sepsis vs SIRS; Procalc 10.04 on 08/09/16 - Hypotension requiring Levophed & Dopamine - Hyperbilirubinemia - Hyponatremia - Hypocalcemia - Shock, hypovolemic +/- septic, on pressor support - PEA arrest 08/16/16 - Acute respiratory failure s/p intubation 08/16/16 - Elevated troponin - LGIB - positive 1,6-gdft-Z-glucan level, colonization of the airway due to rik Recommendations: - await cocci CF - trend LFTs - continue empiric jae/caspofungin (08/09/16-), IV vanc (08/16/2016-) - continue renally dosed PO levofloxacin 750 mg 3x/week after HD (08/12/16-), isoniazid, pyrazinamide, ethambutol and vitamin B6 supplement (07/12/2016-) as recommended by TB Control. Levofloxacin replaced rifampin due to hyperbilirubinemia management d/w Pt's DOUGLAS Walsh Problems: Consultation Date/Type/Reason Admit Date/Time Jul 24, 2016 at 12:53 Initial Consult Date 07/24/16 Type of Consultation: id Referring Provider: EVA COX MD 24 HR Interval Summary Free Text/Dictation critical care time 1 hour Exam/Review of Systems Vital Signs Vitals Vital Signs Date Time Temp Pulse Resp B/P Pulse Ox O2 Delivery O2 Flow Rate FiO2 08/20/16 08:15 81 21 105/53 100 Mechanical Ventilator 08/20/16 07:22 40 08/20/16 07:15 98.5 08/16/16 11:00 2.0 Intake and Output 08/19/16 08/19/16 08/20/16 15:00 23:00 07:00 Intake Total 1038.55 ml 1240.09 ml 960.94 ml Output Total 0 ml 850 ml 600 ml Balance 1038.55 ml 390.09 ml 360.94 ml Exam intubated and sedated. s/p svt, resp failure Head: normocephalic Eyes: EOMI, PERRL, nl conjunctiva, nl lids, nl sclera Respiratory: clear to auscultation, normal air movement Cardiovascular: nl pulses, regular rate and rhythm Gastrointestinal: nl liver, spleen, non-tender, soft Results Result Diagram: 4/19/17 0355 08/20/16 0355 Results 24 hrs Laboratory Tests Test 08/19/16 12:08 08/19/16 16:43 08/19/16 16:45 08/19/16 17:05 Bedside Glucose 75 48 *L 89 Hemoglobin 12.0 #L Hematocrit 32.7 #L Test 08/19/16 17:30 08/19/16 18:34 08/19/16 19:05 08/19/16 19:47 Bedside Glucose 112 96 86 Platelet Count 125 #L Prothrombin Time 14.2 Prothrombin Time Ratio 1.1 INR International Normalized Ratio 1.10 Activated Partial Thromboplast Time 32.2 Thrombin Time 16.3 Fibrinogen 252.0 # Plasma Fibrin Degradation Products <10 D-Dimer 9023.77 #H D-Dimer Comment Test 08/19/16 20:49 08/20/16 00:40 08/20/16 01:01 08/20/16 01:18 Bedside Glucose 97 51 L 99 90 Test 08/20/16 02:45 08/20/16 03:55 08/20/16 04:26 08/20/16 09:07 Bedside Glucose 158 188 229 H White Blood Count 11.9 H Red Blood Count 3.06 L Hemoglobin 9.4 #L Hematocrit 25.9 #L Mean Corpuscular Volume 84.6 Mean Corpuscular Hemoglobin 30.7 Mean Corpuscular Hemoglobin Concent 36.3 Red Cell Distribution Width 16.9 H Platelet Count 68 #L Mean Platelet Volume 11.5 H Neutrophils % 90.0 H Lymphocytes % 2.4 L Monocytes % 6.1 Eosinophils % 0.3 Basophils % 0.2 Nucleated Red Blood Cells % 0.0 Neutrophils # 10.7 H Lymphocytes # 0.3 L Monocytes # 0.7 Eosinophils # 0.0 Basophils # 0.0 Nucleated Red Blood Cells # 0.0 Sodium Level 125 L Potassium Level 3.1 L Chloride Level 90 L Carbon Dioxide Level 25 Anion Gap 13 Blood Urea Nitrogen 40 H Creatinine 4.32 H Glucose Level 172 Calcium Level 5.5 *L Total Bilirubin 6.1 H Direct Bilirubin 4.00 H Indirect Bilirubin 2.1 H Aspartate Amino Transf (AST/SGOT) 71 H Alanine Aminotransferase (ALT/SGPT) 33 Alkaline Phosphatase 165 H Total Protein 3.6 L Albumin 1.8 L Globulin 1.80 Albumin/Globulin Ratio 1.00 Medications Medications Current Medications Aspirin (Halfprin) 81 mg DAILY PO Last administered on 08/16/16 08:21; Admin Dose 81 MG; Start 07/25/16 at 09:00; Status Future Hold Atorvastatin Calcium (Lipitor) 10 mg QHS PO Last administered on 08/15/16 21: 40; Admin Dose 10 MG; Start 07/24/16 at 21:00; Status Future Hold Cholecalciferol (Vitamin D) 400 units DAILY PO Last administered on 08/20/16 08:13; Admin Dose 400 UNITS; Start 07/25/16 at 09:00 Famotidine (Pepcid) 20 mg DAILY PO Last administered on 08/20/16 08:13; Admin Dose 20 MG; Start 07/25/16 at 09:00 Ferrous Sulfate (Ferrous Sulfate (Ec)) 325 mg BID PO Last administered on 08:13; Admin Dose 325 MG; Start 07/24/16 at 21:00 Acetaminophen/ Hydrocodone Bitart ([place] (5/325)) 1 tab Q4H PRN PO PAIN Last administered on 08/19/16 22:01; Admin Dose 1 TAB; Start 07/24/16 at 17:00 Isoniazid (Isoniazid) 300 mg DAILY PO Last administered on 08/20/16 08:13; Admin Dose 300 MG; Start 07/24/16 at 15:30 Pyridoxine HCl (Vitamin B6) 50 mg DAILY PO Last administered on 08/20/16 08:13 ; Admin Dose 50 MG; Start 07/25/16 at 09:00 Miscellaneous Information 1 ea NOTE XX ; Start 07/24/16 at 16:00 Glucose (Glutose) 15 gm Q15M PRN PO DECREASED GLUCOSE; Start 07/24/16 at 16:00 Glucose (Glutose) 22.5 gm Q15M PRN PO DECREASED GLUCOSE; Start 07/24/16 at 16: 00 Dextrose (D50w Syringe) 25 ml Q15M PRN IV DECREASED GLUCOSE Last administered on 08/20/16 00:42; Admin Dose 25 ML; Start 07/24/16 at 16:00 Dextrose (D50w Syringe) 50 ml Q15M PRN IV DECREASED GLUCOSE Last administered on 08/17/16 21:38; Admin Dose 50 ML; Start 07/24/16 at 16:00 Glucagon (Glucagen) 1 mg Q15M PRN IM DECREASED GLUCOSE; Start 07/24/16 at 16:00 Glucose (Glutose) 15 gm Q15M PRN BUCCAL DECREASED GLUCOSE; Start 07/24/16 at 16 :00 Ondansetron HCl (Zofran Inj) 4 mg Q4 PRN IV nausea Last administered on 21:40; Admin Dose 4 MG; Start 07/24/16 at 17:00 Metoclopramide HCl (Reglan) 5 mg Q4H PRN IV NAUSEA Last administered on 16:40; Admin Dose 5 MG; Start 07/24/16 at 22:30 Hydralazine HCl (Apresoline) 20 mg Q4 PRN IV ELEVATED BLOOD PRESSURE Last administered on 08/04/16 16:35; Admin Dose 20 MG; Start 07/28/16 at 02:00 Polyethylene Glycol (Miralax) 17 gm DAILY PRN GTB CONSTIPATION Last administered on 07/28/16 20:22; Admin Dose 17 GM; Start 07/28/16 at 19:30 Lorazepam (Ativan) 1 mg Q4H PRN IV anxiety Last administered on 08/19/16 07:52 ; Admin Dose 1 MG; Start 07/29/16 at 06:30 Ethambutol HCl (Myambutol) 900 mg TuThSa@20 PO Last administered on 08/19/16 21:48; Admin Dose 900 MG; Start 07/31/16 at 20:00 Pyrazinamide (Pyrazinamide) 1,250 mg TuThSa@20 PO Last administered on 21:49; Admin Dose 1,250 MG; Start 07/31/16 at 20:00 Hydromorphone HCl (Dilaudid) 1 mg Q2H PRN IV pain Last administered on 11:23; Admin Dose 1 MG; Start 08/02/16 at 19:00 Zolpidem Tartrate (Ambien) 5 mg HS PRN PO INSOMNIA Last administered on 22:40; Admin Dose 5 MG; Start 08/08/16 at 21:00 Benazepril HCl (Lotensin) 10 mg BID PO ; Start 08/09/16 at 09:00; Status Future Hold Metoprolol Tartrate 25 mg 25 mg BID GTB Last administered on 08/14/16 20:42; Admin Dose 25 MG; Start 08/09/16 at 21:00 Sodium Chloride 1,000 ml @ 50 mls/hr Q20H IV Last administered on 08/14/16 17 :48; Admin Dose 50 MLS/HR; Start 08/09/16 at 17:30; Status Future Hold Dopamine HCl/ Dextrose (D5W) 250 ml @ 1.71 mls/hr TITRATE IV Last administered on 08/11/16 15:07; Admin Dose 11.43 MLS/HR; Start 08/10/16 at 15:30 Acetaminophen (Tylenol Tab) 650 mg Q6H PRN PO PAIN AND OR ELEVATED TEMP Last administered on 08/12/16 00:54; Admin Dose 650 MG; Start 08/10/16 at 16:30 Clopidogrel Bisulfate 75 mg 75 mg DAILY PO Last administered on 08/16/16 08:21 ; Admin Dose 75 MG; Start 08/11/16 at 12:00; Status Future Hold Phenylephrine HCl 160 mg/Dextrose 500 ml @ 18.75 mls/ hr TITRATE IV Last administered on 08/19/16 16:46; Admin Dose 18.75 MLS/HR; Start 08/12/16 at 06: 00 Meropenem (Merrem 500 Mg/ 100 ml (Pmx)) 100 ml @ 200 mls/hr Q24H IVPB Last administered on 08/20/16 08:13; Admin Dose 200 MLS/HR; Start 08/13/16 at 09:00 Epoetin Tutu (Epogen (Esrd)) 3,000 units TuThSa@17 SC Last administered on 08/19 16:47; Admin Dose 3,000 UNITS; Start 08/14/16 at 17:00 Epoetin Tutu (Epogen (Esrd)) 2,000 units TuThSa@17 SC Last administered on 08/19 16:51; Admin Dose 2,000 UNITS; Start 08/14/16 at 17:00 Triglycerides (Mct Oil (Ped)) 10 ml Q6 PO Last administered on 08/20/16 05:14 ; Admin Dose 10 ML; Start 08/14/16 at 12:30 Levofloxacin (Levaquin) 750 mg TuThSa PO Last administered on 08/19/16 21:48; Admin Dose 750 MG; Start 08/14/16 at 20:00 Calcium Carbonate (Tums) 500 mg TID PO Last administered on 08/20/16 08:13; Admin Dose 500 MG; Start 08/15/16 at 09:00 Midodrine 5 mg 5 mg BID@,17 PO Last administered on 08/20/16 08:12; Admin Dose 5 MG; Start 08/15/16 at 17:00 Vasopressin 60 unit/Dextrose 60 ml @ 1.2 mls/hr Q12H IV Last administered on 05:39; Admin Dose 2.4 MLS/HR; Start 08/16/16 at 09:30 Norepinephrine 32 mg/Dextrose 250 ml @ 0.46 mls/hr TITRATE IV Last administered on 08/19/16 12:50; Admin Dose 0.93 MLS/HR; Start 08/16/16 at 13:30 Epinephrine 4 mg/ Sodium Chloride 250 ml @ 3.75 mls/hr TITRATE IV ; Start 08/16 at 14:00 Vancomycin HCl (Vancocin) 250 ml @ 125 mls/hr Q96H IVPB Last administered on 18:14; Admin Dose 125 MLS/HR; Start 08/18/16 at 16:00 Pantoprazole (Protonix Iv) 40 mg DAILY@06 IV Last administered on 08/20/16 05: 14; Admin Dose 40 MG; Start 08/18/16 at 06:00 Insulin Glargine (Lantus) 15 unit 08 SC Last administered on 08/19/16 08:36; Admin Dose 15 UNIT; Start 08/18/16 at 08:00 Insulin Aspart NOVOLOG *MILD* ALGORI... Q4 SC Last administered on 08/20/16 09 :12; Admin Dose 3 UNIT; Start 08/18/16 at 08:00 Caspofungin 35 mg/ Sodium Chloride 250 ml @ 250 mls/hr Q24H IV Last administered on 08/19/16 16:46; Admin Dose 250 MLS/HR; Start 08/18/16 at 17:00 Calcium Gluconate 1 gm/Sodium Chloride 110 ml @ 110 mls/hr BID IVPB Last administered on 08/20/16 09:14; Admin Dose 110 MLS/HR; Start 08/20/16 at 09:00 ; Stop 08/20/16 at 21:30 Potassium Chloride 30 meq/ Sodium Chloride 165 ml @ 55 mls/hr ONCE ONCE IVPB Last administered on 08/20/16 09:47; Admin Dose 55 MLS/HR; Start 08/20/16 at 08 :30; Stop 08/20/16 at 11:29 Dextrose/Sodium Chloride (D5-1/2ns) 1,000 ml @ 120 mls/hr Q8H20M IV Last administered on 08/20/16 07:15; Admin Dose 120 MLS/HR; Start 08/20/16 at 06:30 BRENDA ISRAEL MD Aug 20, 2016 10:10
--- NOTE | 2016-08-20 12:41 | CONS ---
Date/Time of Note Date/Time of Note DATE: 08/20/16 TIME: 12:39 Assessment/Plan Assessment/Plan Chief Complaint/Hosp Course 60 year old male with ESRD, DM, HTN, CAD, with hemoptysis, now with chest tube in place for active tubercular empyema. Chest tube site is now bleeding and patient has evidence of GI bleed. Since 08/15 patient has become more anemia and thrombocytopenic. Pt is s/p PEA arrest on 08/16. He is still intubated but has been weaned off pressors. #Thrombocytopenia - peripheral smear shows evidence of few schistocytes and LDH is high at 1500. Furthermore fibrinogen is low at 129 which all support DIC likely secondary to underlying infection. TTP unlikely -keep fibrinogen > 150. s/p 1 units of cryoprecipitate 08/18 -in the setting of active bleed, would try to keep platelets > 50K. s/p 1 unit platelets 08/19/16, plt 68,000 today. -will check HIT panel given patient did get 1 dose of heparin on 08/15 -hold all anticoagulants at this time -continue to treat underlying infection. Although the antibiotics including vancomycin, rifampin and Levaquin may be contributing to patient's thrombocytopenia, I do not think we should discontinue at them point given they are working to combat patients severe sepsis # Anemia - multifactorial and secondary to acute blood loss, chronic renal failure as well as anemia of chronic inflammation caused by underlying infection - pt is s/p 3 units of PRBCs 08/18/16 -try to keep Hg> 8 -continue epogen 5000 units 3x week with dialysis #Coagulopathy- as stated above I believe this is secondary to DIC -cryoprecipitate to keep fibrinogen > 150 -continue to monitor INR. Pt may need FFP in the future, currently INR 1.10, PTT 32.2. -s/p IV vitamin K 5mg x1 08/18/16 # GI Bleed - GI following. Per GI patient needs to have GI bleeding scan, but is unstable to have this study done, -will continue to correct coagulopathy as mentioned above # Pleural effusion - s/p chest tube placement for recurrent right pleural effusion consistent with Tubercular empyema. Status post right thoracotomy and pulmonary decortication on 08/04. Per notes, for the Chylothorax, would need embolization of the thoracic duct, pending transfer to [facility]. -continue isoniazid, pyrazinamide, ethambutol and vitamin B6 supplement (2016-) -cont Vancomycin, Levaquin as ordered by ID # [id number] -cont HD per Dr Saunders Problems: Consultation Date/Type/Reason Admit Date/Time Jul 24, 2016 at 12:53 Initial Consult Date 07/25/16 Type of Consultation: Hematology Referring Provider: EVA COX MD 24 HR Interval Summary Free Text/Dictation Patient is on two pressors. Continues to have bloody chest tube output but no rectal bleeding. Pending transfer to [facility]. Exam/Review of Systems Vital Signs Vitals Vital Signs Date Time Temp Pulse Resp B/P Pulse Ox O2 Delivery O2 Flow Rate FiO2 08/20/16 11:15 84 20 82/52 100 Mechanical Ventilator 08/20/16 11:10 40 08/20/16 07:15 98.5 08/16/16 11:00 2.0 Intake and Output 08/19/16 08/19/16 08/20/16 15:00 23:00 07:00 Intake Total 1038.55 ml 1240.09 ml 960.94 ml Output Total 0 ml 850 ml 600 ml Balance 1038.55 ml 390.09 ml 360.94 ml Exam Constitutional: non-verbal Head: normocephalic ENMT: intubated, other Neck: supple Respiratory: other (chest tube in place with sanguanous drainage) Cardiovascular: regular rate and rhythm Gastrointestinal: soft Musculoskeletal: nl extremities to inspection Neurological: RESISTANCE WELDER II-XII intact Results Result Diagram: 08/20/16 0355 08/20/16 0355 Results 24 hrs Laboratory Tests Test 08/19/16 16:43 08/19/16 16:45 08/19/16 17:05 08/19/16 17:30 Bedside Glucose 48 *L 89 112 Hemoglobin 12.0 #L Hematocrit 32.7 #L Test 08/19/16 18:34 08/19/16 19:05 08/19/16 19:47 08/19/16 20:49 Bedside Glucose 96 86 97 Platelet Count 125 #L Prothrombin Time 14.2 Prothrombin Time Ratio 1.1 INR International Normalized Ratio 1.10 Activated Partial Thromboplast Time 32.2 Thrombin Time 16.3 Fibrinogen 252.0 # Plasma Fibrin Degradation Products <10 D-Dimer 9023.77 #H D-Dimer Comment Test 08/20/16 00:40 08/20/16 01:01 08/20/16 01:18 08/20/16 02:45 Bedside Glucose 51 L 99 90 158 Test 08/20/16 03:55 08/20/16 04:26 08/20/16 09:07 White Blood Count 11.9 H Red Blood Count 3.06 L Hemoglobin 9.4 #L Hematocrit 25.9 #L Mean Corpuscular Volume 84.6 Mean Corpuscular Hemoglobin 30.7 Mean Corpuscular Hemoglobin Concent 36.3 Red Cell Distribution Width 16.9 H Platelet Count 68 #L Mean Platelet Volume 11.5 H Neutrophils % 90.0 H Lymphocytes % 2.4 L Monocytes % 6.1 Eosinophils % 0.3 Basophils % 0.2 Nucleated Red Blood Cells % 0.0 Neutrophils # 10.7 H Lymphocytes # 0.3 L Monocytes # 0.7 Eosinophils # 0.0 Basophils # 0.0 Nucleated Red Blood Cells # 0.0 Sodium Level 125 L Potassium Level 3.1 L Chloride Level 90 L Carbon Dioxide Level 25 Anion Gap 13 Blood Urea Nitrogen 40 H Creatinine 4.32 H Glucose Level 172 Calcium Level 5.5 *L Total Bilirubin 6.1 H Direct Bilirubin 4.00 H Indirect Bilirubin 2.1 H Aspartate Amino Transf (AST/SGOT) 71 H Alanine Aminotransferase (ALT/SGPT) 33 Alkaline Phosphatase 165 H Total Protein 3.6 L Albumin 1.8 L Globulin 1.80 Albumin/Globulin Ratio 1.00 Bedside Glucose 188 229 H Medications Medications Current Medications Aspirin (Halfprin) 81 mg DAILY PO Last administered on 08/16/16 08:21; Admin Dose 81 MG; Start 07/25/16 at 09:00; Status Future Hold Atorvastatin Calcium (Lipitor) 10 mg QHS PO Last administered on 08/15/16 21: 40; Admin Dose 10 MG; Start 07/24/16 at 21:00; Status Future Hold Cholecalciferol (Vitamin D) 400 units DAILY PO Last administered on 08/20/16 08:13; Admin Dose 400 UNITS; Start 07/25/16 at 09:00 Famotidine (Pepcid) 20 mg DAILY PO Last administered on 08/20/16 08:13; Admin Dose 20 MG; Start 07/25/16 at 09:00 Ferrous Sulfate (Ferrous Sulfate (Ec)) 325 mg BID PO Last administered on 08:13; Admin Dose 325 MG; Start 07/24/16 at 21:00 Acetaminophen/ Hydrocodone Bitart ([place] (5/325)) 1 tab Q4H PRN PO PAIN Last administered on 08/19/16 22:01; Admin Dose 1 TAB; Start 07/24/16 at 17:00 Isoniazid (Isoniazid) 300 mg DAILY PO Last administered on 08/20/16 08:13; Admin Dose 300 MG; Start 07/24/16 at 15:30 Pyridoxine HCl (Vitamin B6) 50 mg DAILY PO Last administered on 08/20/16 08:13 ; Admin Dose 50 MG; Start 07/25/16 at 09:00 Miscellaneous Information 1 ea NOTE XX ; Start 07/24/16 at 16:00 Glucose (Glutose) 15 gm Q15M PRN PO DECREASED GLUCOSE; Start 07/24/16 at 16:00 Glucose (Glutose) 22.5 gm Q15M PRN PO DECREASED GLUCOSE; Start 07/24/16 at 16: 00 Dextrose (D50w Syringe) 25 ml Q15M PRN IV DECREASED GLUCOSE Last administered on 08/20/16 00:42; Admin Dose 25 ML; Start 07/24/16 at 16:00 Dextrose (D50w Syringe) 50 ml Q15M PRN IV DECREASED GLUCOSE Last administered on 08/17/16 21:38; Admin Dose 50 ML; Start 07/24/16 at 16:00 Glucagon (Glucagen) 1 mg Q15M PRN IM DECREASED GLUCOSE; Start 07/24/16 at 16:00 Glucose (Glutose) 15 gm Q15M PRN BUCCAL DECREASED GLUCOSE; Start 07/24/16 at 16 :00 Ondansetron HCl (Zofran Inj) 4 mg Q4 PRN IV nausea Last administered on 21:40; Admin Dose 4 MG; Start 07/24/16 at 17:00 Metoclopramide HCl (Reglan) 5 mg Q4H PRN IV NAUSEA Last administered on 16:40; Admin Dose 5 MG; Start 07/24/16 at 22:30 Hydralazine HCl (Apresoline) 20 mg Q4 PRN IV ELEVATED BLOOD PRESSURE Last administered on 08/04/16 16:35; Admin Dose 20 MG; Start 07/28/16 at 02:00 Polyethylene Glycol (Miralax) 17 gm DAILY PRN GTB CONSTIPATION Last administered on 07/28/16 20:22; Admin Dose 17 GM; Start 07/28/16 at 19:30 Lorazepam (Ativan) 1 mg Q4H PRN IV anxiety Last administered on 08/19/16 07:52 ; Admin Dose 1 MG; Start 07/29/16 at 06:30 Ethambutol HCl (Myambutol) 900 mg TuThSa@20 PO Last administered on 08/19/16 21:48; Admin Dose 900 MG; Start 07/31/16 at 20:00 Pyrazinamide (Pyrazinamide) 1,250 mg TuThSa@20 PO Last administered on 21:49; Admin Dose 1,250 MG; Start 07/31/16 at 20:00 Hydromorphone HCl (Dilaudid) 1 mg Q2H PRN IV pain Last administered on 11:23; Admin Dose 1 MG; Start 08/02/16 at 19:00 Zolpidem Tartrate (Ambien) 5 mg HS PRN PO INSOMNIA Last administered on 22:40; Admin Dose 5 MG; Start 08/08/16 at 21:00 Benazepril HCl (Lotensin) 10 mg BID PO ; Start 08/09/16 at 09:00; Status Future Hold Metoprolol Tartrate 25 mg 25 mg BID GTB Last administered on 08/14/16 20:42; Admin Dose 25 MG; Start 08/09/16 at 21:00 Sodium Chloride 1,000 ml @ 50 mls/hr Q20H IV Last administered on 08/14/16 17 :48; Admin Dose 50 MLS/HR; Start 08/09/16 at 17:30; Status Future Hold Dopamine HCl/ Dextrose (D5W) 250 ml @ 1.71 mls/hr TITRATE IV Last administered on 08/11/16 15:07; Admin Dose 11.43 MLS/HR; Start 08/10/16 at 15:30 Acetaminophen (Tylenol Tab) 650 mg Q6H PRN PO PAIN AND OR ELEVATED TEMP Last administered on 08/12/16 00:54; Admin Dose 650 MG; Start 08/10/16 at 16:30 Clopidogrel Bisulfate 75 mg 75 mg DAILY PO Last administered on 08/16/16 08:21 ; Admin Dose 75 MG; Start 08/11/16 at 12:00; Status Future Hold Phenylephrine HCl 160 mg/Dextrose 500 ml @ 18.75 mls/ hr TITRATE IV Last administered on 08/19/16 16:46; Admin Dose 18.75 MLS/HR; Start 08/12/16 at 06: 00 Meropenem (Merrem 500 Mg/ 100 ml (Pmx)) 100 ml @ 200 mls/hr Q24H IVPB Last administered on 08/20/16 08:13; Admin Dose 200 MLS/HR; Start 08/13/16 at 09:00 Epoetin Tutu (Epogen (Esrd)) 3,000 units TuThSa@17 SC Last administered on 08/19 16:47; Admin Dose 3,000 UNITS; Start 08/14/16 at 17:00 Epoetin Tutu (Epogen (Esrd)) 2,000 units TuThSa@17 SC Last administered on 08/19 16:51; Admin Dose 2,000 UNITS; Start 08/14/16 at 17:00 Triglycerides (Mct Oil (Ped)) 10 ml Q6 PO Last administered on 08/20/16 05:14 ; Admin Dose 10 ML; Start 08/14/16 at 12:30 Levofloxacin (Levaquin) 750 mg TuThSa PO Last administered on 08/19/16 21:48; Admin Dose 750 MG; Start 08/14/16 at 20:00 Calcium Carbonate (Tums) 500 mg TID PO Last administered on 08/20/16 08:13; Admin Dose 500 MG; Start 08/15/16 at 09:00 Midodrine 5 mg 5 mg BID@,17 PO Last administered on 08/20/16 08:12; Admin Dose 5 MG; Start 08/15/16 at 17:00 Vasopressin 60 unit/Dextrose 60 ml @ 1.2 mls/hr Q12H IV Last administered on 05:39; Admin Dose 2.4 MLS/HR; Start 08/16/16 at 09:30 Norepinephrine 32 mg/Dextrose 250 ml @ 0.46 mls/hr TITRATE IV Last administered on 08/19/16 12:50; Admin Dose 0.93 MLS/HR; Start 08/16/16 at 13:30 Epinephrine 4 mg/ Sodium Chloride 250 ml @ 3.75 mls/hr TITRATE IV ; Start 08/16 at 14:00 Vancomycin HCl (Vancocin) 250 ml @ 125 mls/hr Q96H IVPB Last administered on 18:14; Admin Dose 125 MLS/HR; Start 08/18/16 at 16:00 Pantoprazole (Protonix Iv) 40 mg DAILY@06 IV Last administered on 08/20/16 05: 14; Admin Dose 40 MG; Start 08/18/16 at 06:00 Insulin Glargine (Lantus) 15 unit 08 SC Last administered on 08/19/16 08:36; Admin Dose 15 UNIT; Start 08/18/16 at 08:00 Insulin Aspart NOVOLOG *MILD* ALGORI... Q4 SC Last administered on 08/20/16 09 :12; Admin Dose 3 UNIT; Start 08/18/16 at 08:00 Caspofungin 35 mg/ Sodium Chloride 250 ml @ 250 mls/hr Q24H IV Last administered on 08/19/16 16:46; Admin Dose 250 MLS/HR; Start 08/18/16 at 17:00 Calcium Gluconate 1 gm/Sodium Chloride 110 ml @ 110 mls/hr BID IVPB Last administered on 08/20/16 09:14; Admin Dose 110 MLS/HR; Start 08/20/16 at 09:00 ; Stop 08/20/16 at 21:30 Dextrose/Sodium Chloride (D5-1/2ns) 1,000 ml @ 120 mls/hr Q8H20M IV Last administered on 08/20/16 07:15; Admin Dose 120 MLS/HR; Start 08/20/16 at 06:30 TOISABELA MD Aug 20, 2016 12:41
--- NOTE | 2016-08-20 13:08 | CONS ---
Date/Time of Note Date/Time of Note DATE: 08/20/16 TIME: 13:07 Assessment/Plan Assessment/Plan Chief Complaint/Hosp Course IMPRESSION: 1. Recurrent pleural effusions. s/p vats 2. Lung infiltrate./cavitary lesion 3. s/p code blue positive troponin 4. Hypotension on pressor 5. Diabetes mellitus. 6. End-stage renal disease. 7. anemia. 8. cad. 9. chylothorax 10. ashd 11. vdrf 12. The patient on anti-tuberculosis treatment. 13. 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 14 dehydration on iv fluid 15 hypocalcemia w low albumin 16 poss thoracic duct injury PLAN per id and surg ctube care hd iv fluid albumin iv calcium prn tpn,mediun chain triglyceride pt should be tranferred to [facility] for thoracic duct repair d/w dr álvarez and dr cox ck labs kcl hd Problems: Consultation Date/Type/Reason Admit Date/Time Jul 24, 2016 at 12:53 Initial Consult Date 07/25/16 Type of Consultation: renal Referring Provider: EVA COX MD 24 HR Interval Summary Constitutional: other (on vent) Exam/Review of Systems Vital Signs Vitals Vital Signs Date Time Temp Pulse Resp B/P Pulse Ox O2 Delivery O2 Flow Rate FiO2 08/20/16 12:45 74 20 109/62 100 Mechanical Ventilator 08/20/16 12:00 98.0 08/20/16 11:10 40 08/16/16 11:00 2.0 Intake and Output 08/19/16 08/19/16 08/20/16 15:00 23:00 07:00 Intake Total 1038.55 ml 1240.09 ml 960.94 ml Output Total 0 ml 850 ml 600 ml Balance 1038.55 ml 390.09 ml 360.94 ml Exam Respiratory: diminished breath sounds Cardiovascular: regular rate and rhythm Gastrointestinal: bowel sounds (+), soft Extremities: edema (++) Results Result Diagram: 08/20/16 0355 08/20/16 0355 Results 24 hrs Laboratory Tests Test 08/19/16 16:43 08/19/16 16:45 08/19/16 17:05 08/19/16 17:30 Bedside Glucose 48 *L 89 112 Hemoglobin 12.0 #L Hematocrit 32.7 #L Test 08/19/16 18:34 08/19/16 19:05 08/19/16 19:47 08/19/16 20:49 Bedside Glucose 96 86 97 Platelet Count 125 #L Prothrombin Time 14.2 Prothrombin Time Ratio 1.1 INR International Normalized Ratio 1.10 Activated Partial Thromboplast Time 32.2 Thrombin Time 16.3 Fibrinogen 252.0 # Plasma Fibrin Degradation Products <10 D-Dimer 9023.77 #H D-Dimer Comment Test 08/20/16 00:40 08/20/16 01:01 08/20/16 01:18 08/20/16 02:45 Bedside Glucose 51 L 99 90 158 Test 08/20/16 03:55 08/20/16 04:26 08/20/16 09:07 White Blood Count 11.9 H Red Blood Count 3.06 L Hemoglobin 9.4 #L Hematocrit 25.9 #L Mean Corpuscular Volume 84.6 Mean Corpuscular Hemoglobin 30.7 Mean Corpuscular Hemoglobin Concent 36.3 Red Cell Distribution Width 16.9 H Platelet Count 68 #L Mean Platelet Volume 11.5 H Neutrophils % 90.0 H Lymphocytes % 2.4 L Monocytes % 6.1 Eosinophils % 0.3 Basophils % 0.2 Nucleated Red Blood Cells % 0.0 Neutrophils # 10.7 H Lymphocytes # 0.3 L Monocytes # 0.7 Eosinophils # 0.0 Basophils # 0.0 Nucleated Red Blood Cells # 0.0 Sodium Level 125 L Potassium Level 3.1 L Chloride Level 90 L Carbon Dioxide Level 25 Anion Gap 13 Blood Urea Nitrogen 40 H Creatinine 4.32 H Glucose Level 172 Calcium Level 5.5 *L Total Bilirubin 6.1 H Direct Bilirubin 4.00 H Indirect Bilirubin 2.1 H Aspartate Amino Transf (AST/SGOT) 71 H Alanine Aminotransferase (ALT/SGPT) 33 Alkaline Phosphatase 165 H Total Protein 3.6 L Albumin 1.8 L Globulin 1.80 Albumin/Globulin Ratio 1.00 Bedside Glucose 188 229 H Medications Medications Current Medications Aspirin (Halfprin) 81 mg DAILY PO Last administered on 08/16/16 08:21; Admin Dose 81 MG; Start 07/25/16 at 09:00; Status Future Hold Atorvastatin Calcium (Lipitor) 10 mg QHS PO Last administered on 08/15/16 21: 40; Admin Dose 10 MG; Start 07/24/16 at 21:00; Status Future Hold Cholecalciferol (Vitamin D) 400 units DAILY PO Last administered on 08/20/16 08:13; Admin Dose 400 UNITS; Start 07/25/16 at 09:00 Famotidine (Pepcid) 20 mg DAILY PO Last administered on 08/20/16 08:13; Admin Dose 20 MG; Start 07/25/16 at 09:00 Ferrous Sulfate (Ferrous Sulfate (Ec)) 325 mg BID PO Last administered on 08:13; Admin Dose 325 MG; Start 07/24/16 at 21:00 Acetaminophen/ Hydrocodone Bitart ([place] (5/325)) 1 tab Q4H PRN PO PAIN Last administered on 08/19/16 22:01; Admin Dose 1 TAB; Start 07/24/16 at 17:00 Isoniazid (Isoniazid) 300 mg DAILY PO Last administered on 08/20/16 08:13; Admin Dose 300 MG; Start 07/24/16 at 15:30 Pyridoxine HCl (Vitamin B6) 50 mg DAILY PO Last administered on 08/20/16 08:13 ; Admin Dose 50 MG; Start 07/25/16 at 09:00 Miscellaneous Information 1 ea NOTE XX ; Start 07/24/16 at 16:00 Glucose (Glutose) 15 gm Q15M PRN PO DECREASED GLUCOSE; Start 07/24/16 at 16:00 Glucose (Glutose) 22.5 gm Q15M PRN PO DECREASED GLUCOSE; Start 07/24/16 at 16: 00 Dextrose (D50w Syringe) 25 ml Q15M PRN IV DECREASED GLUCOSE Last administered on 08/20/16 00:42; Admin Dose 25 ML; Start 07/24/16 at 16:00 Dextrose (D50w Syringe) 50 ml Q15M PRN IV DECREASED GLUCOSE Last administered on 08/17/16 21:38; Admin Dose 50 ML; Start 07/24/16 at 16:00 Glucagon (Glucagen) 1 mg Q15M PRN IM DECREASED GLUCOSE; Start 07/24/16 at 16:00 Glucose (Glutose) 15 gm Q15M PRN BUCCAL DECREASED GLUCOSE; Start 07/24/16 at 16 :00 Ondansetron HCl (Zofran Inj) 4 mg Q4 PRN IV nausea Last administered on 21:40; Admin Dose 4 MG; Start 07/24/16 at 17:00 Metoclopramide HCl (Reglan) 5 mg Q4H PRN IV NAUSEA Last administered on 16:40; Admin Dose 5 MG; Start 07/24/16 at 22:30 Hydralazine HCl (Apresoline) 20 mg Q4 PRN IV ELEVATED BLOOD PRESSURE Last administered on 08/04/16 16:35; Admin Dose 20 MG; Start 07/28/16 at 02:00 Polyethylene Glycol (Miralax) 17 gm DAILY PRN GTB CONSTIPATION Last administered on 07/28/16 20:22; Admin Dose 17 GM; Start 07/28/16 at 19:30 Lorazepam (Ativan) 1 mg Q4H PRN IV anxiety Last administered on 08/19/16 07:52 ; Admin Dose 1 MG; Start 07/29/16 at 06:30 Ethambutol HCl (Myambutol) 900 mg TuThSa@20 PO Last administered on 08/19/16 21:48; Admin Dose 900 MG; Start 07/31/16 at 20:00 Pyrazinamide (Pyrazinamide) 1,250 mg TuThSa@20 PO Last administered on 21:49; Admin Dose 1,250 MG; Start 07/31/16 at 20:00 Hydromorphone HCl (Dilaudid) 1 mg Q2H PRN IV pain Last administered on 11:23; Admin Dose 1 MG; Start 08/02/16 at 19:00 Zolpidem Tartrate (Ambien) 5 mg HS PRN PO INSOMNIA Last administered on 22:40; Admin Dose 5 MG; Start 08/08/16 at 21:00 Benazepril HCl (Lotensin) 10 mg BID PO ; Start 08/09/16 at 09:00; Status Future Hold Metoprolol Tartrate 25 mg 25 mg BID GTB Last administered on 08/14/16 20:42; Admin Dose 25 MG; Start 08/09/16 at 21:00 Sodium Chloride 1,000 ml @ 50 mls/hr Q20H IV Last administered on 08/14/16 17 :48; Admin Dose 50 MLS/HR; Start 08/09/16 at 17:30; Status Future Hold Dopamine HCl/ Dextrose (D5W) 250 ml @ 1.71 mls/hr TITRATE IV Last administered on 08/11/16 15:07; Admin Dose 11.43 MLS/HR; Start 08/10/16 at 15:30 Acetaminophen (Tylenol Tab) 650 mg Q6H PRN PO PAIN AND OR ELEVATED TEMP Last administered on 08/12/16 00:54; Admin Dose 650 MG; Start 08/10/16 at 16:30 Clopidogrel Bisulfate 75 mg 75 mg DAILY PO Last administered on 08/16/16 08:21 ; Admin Dose 75 MG; Start 08/11/16 at 12:00; Status Future Hold Phenylephrine HCl 160 mg/Dextrose 500 ml @ 18.75 mls/ hr TITRATE IV Last administered on 08/19/16 16:46; Admin Dose 18.75 MLS/HR; Start 08/12/16 at 06: 00 Meropenem (Merrem 500 Mg/ 100 ml (Pmx)) 100 ml @ 200 mls/hr Q24H IVPB Last administered on 08/20/16 08:13; Admin Dose 200 MLS/HR; Start 08/13/16 at 09:00 Epoetin Tutu (Epogen (Esrd)) 3,000 units TuThSa@17 SC Last administered on 08/19 16:47; Admin Dose 3,000 UNITS; Start 08/14/16 at 17:00 Epoetin Tutu (Epogen (Esrd)) 2,000 units TuThSa@17 SC Last administered on 08/19 16:51; Admin Dose 2,000 UNITS; Start 08/14/16 at 17:00 Triglycerides (Mct Oil (Ped)) 10 ml Q6 PO Last administered on 08/20/16 05:14 ; Admin Dose 10 ML; Start 08/14/16 at 12:30 Levofloxacin (Levaquin) 750 mg TuThSa PO Last administered on 08/19/16 21:48; Admin Dose 750 MG; Start 08/14/16 at 20:00 Calcium Carbonate (Tums) 500 mg TID PO Last administered on 08/20/16 13:02; Admin Dose 500 MG; Start 08/15/16 at 09:00 Midodrine 5 mg 5 mg BID@,17 PO Last administered on 08/20/16 08:12; Admin Dose 5 MG; Start 08/15/16 at 17:00 Vasopressin 60 unit/Dextrose 60 ml @ 1.2 mls/hr Q12H IV Last administered on 05:39; Admin Dose 2.4 MLS/HR; Start 08/16/16 at 09:30 Norepinephrine 32 mg/Dextrose 250 ml @ 0.46 mls/hr TITRATE IV Last administered on 08/19/16 12:50; Admin Dose 0.93 MLS/HR; Start 08/16/16 at 13:30 Epinephrine 4 mg/ Sodium Chloride 250 ml @ 3.75 mls/hr TITRATE IV ; Start 08/16 at 14:00 Vancomycin HCl (Vancocin) 250 ml @ 125 mls/hr Q96H IVPB Last administered on 18:14; Admin Dose 125 MLS/HR; Start 08/18/16 at 16:00 Pantoprazole (Protonix Iv) 40 mg DAILY@06 IV Last administered on 08/20/16 05: 14; Admin Dose 40 MG; Start 08/18/16 at 06:00 Insulin Glargine (Lantus) 15 unit 08 SC Last administered on 08/19/16 08:36; Admin Dose 15 UNIT; Start 08/18/16 at 08:00 Insulin Aspart NOVOLOG *MILD* ALGORI... Q4 SC Last administered on 08/20/16 09 :12; Admin Dose 3 UNIT; Start 08/18/16 at 08:00 Caspofungin 35 mg/ Sodium Chloride 250 ml @ 250 mls/hr Q24H IV Last administered on 08/19/16 16:46; Admin Dose 250 MLS/HR; Start 08/18/16 at 17:00 Calcium Gluconate 1 gm/Sodium Chloride 110 ml @ 110 mls/hr BID IVPB Last administered on 08/20/16 09:14; Admin Dose 110 MLS/HR; Start 08/20/16 at 09:00 ; Stop 08/20/16 at 21:30 Dextrose/Sodium Chloride 1,000 ml @ 120 mls/hr Q8H20M IV Last administered on 08/20/16 07:15; Admin Dose 120 MLS/HR; Start 08/20/16 at 06:30 Total Parenteral Nutrition (Tpn) 1,000 ml @ 80 mls/hr [id number] IV ; Start at 14:00 PAOLA MOODY MD Aug 20, 2016 13:08
--- NOTE | 2016-08-20 13:46 | CONS ---
Date/Time of Note Date/Time of Note DATE: 08/20/16 TIME: 13:41 Assessment/Plan Assessment/Plan Chief Complaint/Hosp Course IMPRESSION: 1. Abnormal electrocardiogram, assess for acute coronary syndrome with recurrent chest pain now and recently negative stress test.-negative troponin x 3 2. History of a percutaneous transluminal coronary angioplasty and stent placement to left main and left anterior descending in 2014. 3. History of coronary artery bypass graft surgery. 4. Video assisted thoracoscopic surgery pleurodesis with leakage from the chest tube site.- now s/p repeat VATS/pleurodesis with CT with significant outpaut over the last 8 hours 5. Shortness of breath. 6. End-stage renal disease on hemodialysis. 7. Tuberculosis, on therapy. 8. Hypotension-recurrent today 9. Diabetes mellitus. 10. Dyslipidemia. 11. Anemia-requiring transfusions/acutely decreasing 12.Empyema/cavitary lesions by CT 13.PEA aresst 08/16/16 requiring intubation 14.Resp failure s/p intubation 15.Tachycardic-S Tach ? due to anemia 16.GI bleed 17.Chylothorax-will require treatment at [facility] 18.SVT to 190 08/19 now resolved Recc: -Tele -Continue thomas and vasopressin and wean as tolerated, avoiding levophed as possible given recent SVT -Continue to hold plavix/asa given worsening anemia/ongoing bleeding and need for transfusions -HD for volume removal as tolerated only -continue TB treatment/broad spectrum abx's -Follow CT output closely with ongoing surgical eval -Continue abx's and f/u cx data -Continue statin -Continue broad spectrum abx's and f/u cx data closely -TRansfer to [facility] when stable/bed available Problems: Consultation Date/Type/Reason Admit Date/Time Jul 24, 2016 at 12:53 Initial Consult Date 07/24/16 Type of Consultation: Cardiology Reason for Consultation abnl ecg Referring Provider: EVA COX MD Exam/Review of Systems Vital Signs Vitals Vital Signs Date Time Temp Pulse Resp B/P Pulse Ox O2 Delivery O2 Flow Rate FiO2 08/20/16 12:45 74 20 109/62 100 Mechanical Ventilator 08/20/16 12:00 98.0 08/20/16 11:10 40 08/16/16 11:00 2.0 Intake and Output 408/19/16 08/20/16 15:00 23:00 07:00 Intake Total 1038.55 ml 1240.09 ml 960.94 ml Output Total 0 ml 850 ml 600 ml Balance 1038.55 ml 390.09 ml 360.94 ml Exam Review of Systems: CONSTITUTIONAL: No fevers, chills. PULMONARY: intubated CARDIOVASCULAR: No chest pain/palpitations GASTROINTESTINAL: No nausea/vomiting. GENITOURINARY: No hematuria/dysuria. MUSCULOSKELETAL: No myagias/arthalgias. PSYCHIATRIC: The patient denies depression. NEUROLOGIC: sedated Constitutional: alert Psych: no complaints Head: normocephalic ENMT: mucosa pink and moist Neck: jvd (9 cm water), supple Respiratory: diminished breath sounds (at bases/B) Cardiovascular: regular rate and rhythm Gastrointestinal: non-tender, soft Extremities: edema (none) Neurological: other (sedated) Results Result Diagram: 08/20/16 0355 08/20/16 0355 Results 24 hrs Laboratory Tests Test 08/19/16 16:43 08/19/16 16:45 08/19/16 17:05 08/19/16 17:30 Bedside Glucose 48 *L 89 112 Hemoglobin 12.0 #L Hematocrit 32.7 #L Test 08/19/16 18:34 08/19/16 19:05 08/19/16 19:47 08/19/16 20:49 Bedside Glucose 96 86 97 Platelet Count 125 #L Prothrombin Time 14.2 Prothrombin Time Ratio 1.1 INR International Normalized Ratio 1.10 Activated Partial Thromboplast Time 32.2 Thrombin Time 16.3 Fibrinogen 252.0 # Plasma Fibrin Degradation Products <10 D-Dimer 9023.77 #H D-Dimer Comment Test 08/20/16 00:40 08/20/16 01:01 08/20/16 01:18 08/20/16 02:45 Bedside Glucose 51 L 99 90 158 Test 08/20/16 03:55 08/20/16 04:26 08/20/16 09:07 08/20/16 13:03 White Blood Count 11.9 H Red Blood Count 3.06 L Hemoglobin 9.4 #L Hematocrit 25.9 #L Mean Corpuscular Volume 84.6 Mean Corpuscular Hemoglobin 30.7 Mean Corpuscular Hemoglobin Concent 36.3 Red Cell Distribution Width 16.9 H Platelet Count 68 #L Mean Platelet Volume 11.5 H Neutrophils % 90.0 H Lymphocytes % 2.4 L Monocytes % 6.1 Eosinophils % 0.3 Basophils % 0.2 Nucleated Red Blood Cells % 0.0 Neutrophils # 10.7 H Lymphocytes # 0.3 L Monocytes # 0.7 Eosinophils # 0.0 Basophils # 0.0 Nucleated Red Blood Cells # 0.0 Sodium Level 125 L Potassium Level 3.1 L Chloride Level 90 L Carbon Dioxide Level 25 Anion Gap 13 Blood Urea Nitrogen 40 H Creatinine 4.32 H Glucose Level 172 Calcium Level 5.5 *L Total Bilirubin 6.1 H Direct Bilirubin 4.00 H Indirect Bilirubin 2.1 H Aspartate Amino Transf (AST/SGOT) 71 H Alanine Aminotransferase (ALT/SGPT) 33 Alkaline Phosphatase 165 H Total Protein 3.6 L Albumin 1.8 L Globulin 1.80 Albumin/Globulin Ratio 1.00 Bedside Glucose 188 229 H 116 Medications Medications Current Medications Aspirin (Halfprin) 81 mg DAILY PO Last administered on 08/16/16 08:21; Admin Dose 81 MG; Start 07/25/16 at 09:00; Status Future Hold Atorvastatin Calcium (Lipitor) 10 mg QHS PO Last administered on 08/15/16 21: 40; Admin Dose 10 MG; Start 07/24/16 at 21:00; Status Future Hold Cholecalciferol (Vitamin D) 400 units DAILY PO Last administered on 08/20/16 08:13; Admin Dose 400 UNITS; Start 07/25/16 at 09:00 Famotidine (Pepcid) 20 mg DAILY PO Last administered on 08/20/16 08:13; Admin Dose 20 MG; Start 07/25/16 at 09:00 Ferrous Sulfate (Ferrous Sulfate (Ec)) 325 mg BID PO Last administered on 08:13; Admin Dose 325 MG; Start 07/24/16 at 21:00 Acetaminophen/ Hydrocodone Bitart ([place] (5/325)) 1 tab Q4H PRN PO PAIN Last administered on 08/19/16 22:01; Admin Dose 1 TAB; Start 07/24/16 at 17:00 Isoniazid (Isoniazid) 300 mg DAILY PO Last administered on 08/20/16 08:13; Admin Dose 300 MG; Start 07/24/16 at 15:30 Pyridoxine HCl (Vitamin B6) 50 mg DAILY PO Last administered on 08/20/16 08:13 ; Admin Dose 50 MG; Start 07/25/16 at 09:00 Miscellaneous Information 1 ea NOTE XX ; Start 07/24/16 at 16:00 Glucose (Glutose) 15 gm Q15M PRN PO DECREASED GLUCOSE; Start 07/24/16 at 16:00 Glucose (Glutose) 22.5 gm Q15M PRN PO DECREASED GLUCOSE; Start 07/24/16 at 16: 00 Dextrose (D50w Syringe) 25 ml Q15M PRN IV DECREASED GLUCOSE Last administered on 08/20/16 00:42; Admin Dose 25 ML; Start 07/24/16 at 16:00 Dextrose (D50w Syringe) 50 ml Q15M PRN IV DECREASED GLUCOSE Last administered on 08/17/16 21:38; Admin Dose 50 ML; Start 07/24/16 at 16:00 Glucagon (Glucagen) 1 mg Q15M PRN IM DECREASED GLUCOSE; Start 07/24/16 at 16:00 Glucose (Glutose) 15 gm Q15M PRN BUCCAL DECREASED GLUCOSE; Start 07/24/16 at 16 :00 Ondansetron HCl (Zofran Inj) 4 mg Q4 PRN IV nausea Last administered on 21:40; Admin Dose 4 MG; Start 07/24/16 at 17:00 Metoclopramide HCl (Reglan) 5 mg Q4H PRN IV NAUSEA Last administered on 16:40; Admin Dose 5 MG; Start 07/24/16 at 22:30 Hydralazine HCl (Apresoline) 20 mg Q4 PRN IV ELEVATED BLOOD PRESSURE Last administered on 08/04/16 16:35; Admin Dose 20 MG; Start 07/28/16 at 02:00 Polyethylene Glycol (Miralax) 17 gm DAILY PRN GTB CONSTIPATION Last administered on 07/28/16 20:22; Admin Dose 17 GM; Start 07/28/16 at 19:30 Lorazepam (Ativan) 1 mg Q4H PRN IV anxiety Last administered on 08/19/16 07:52 ; Admin Dose 1 MG; Start 07/29/16 at 06:30 Ethambutol HCl (Myambutol) 900 mg TuThSa@20 PO Last administered on 08/19/16 21:48; Admin Dose 900 MG; Start 07/31/16 at 20:00 Pyrazinamide (Pyrazinamide) 1,250 mg TuThSa@20 PO Last administered on 21:49; Admin Dose 1,250 MG; Start 07/31/16 at 20:00 Hydromorphone HCl (Dilaudid) 1 mg Q2H PRN IV pain Last administered on 11:23; Admin Dose 1 MG; Start 08/02/16 at 19:00 Zolpidem Tartrate (Ambien) 5 mg HS PRN PO INSOMNIA Last administered on 22:40; Admin Dose 5 MG; Start 08/08/16 at 21:00 Benazepril HCl (Lotensin) 10 mg BID PO ; Start 08/09/16 at 09:00; Status Future Hold Metoprolol Tartrate 25 mg 25 mg BID GTB Last administered on 08/14/16 20:42; Admin Dose 25 MG; Start 08/09/16 at 21:00 Sodium Chloride 1,000 ml @ 50 mls/hr Q20H IV Last administered on 08/14/16 17 :48; Admin Dose 50 MLS/HR; Start 08/09/16 at 17:30; Status Future Hold Dopamine HCl/ Dextrose (D5W) 250 ml @ 1.71 mls/hr TITRATE IV Last administered on 08/11/16 15:07; Admin Dose 11.43 MLS/HR; Start 08/10/16 at 15:30 Acetaminophen (Tylenol Tab) 650 mg Q6H PRN PO PAIN AND OR ELEVATED TEMP Last administered on 08/12/16 00:54; Admin Dose 650 MG; Start 08/10/16 at 16:30 Clopidogrel Bisulfate 75 mg 75 mg DAILY PO Last administered on 08/16/16 08:21 ; Admin Dose 75 MG; Start 08/11/16 at 12:00; Status Future Hold Phenylephrine HCl 160 mg/Dextrose 500 ml @ 18.75 mls/ hr TITRATE IV Last administered on 08/19/16 16:46; Admin Dose 18.75 MLS/HR; Start 08/12/16 at 06: 00 Meropenem (Merrem 500 Mg/ 100 ml (Pmx)) 100 ml @ 200 mls/hr Q24H IVPB Last administered on 08/20/16 08:13; Admin Dose 200 MLS/HR; Start 08/13/16 at 09:00 Epoetin Tutu (Epogen (Esrd)) 3,000 units TuThSa@17 SC Last administered on 08/19 16:47; Admin Dose 3,000 UNITS; Start 08/14/16 at 17:00 Epoetin Tutu (Epogen (Esrd)) 2,000 units TuThSa@17 SC Last administered on 08/19 16:51; Admin Dose 2,000 UNITS; Start 08/14/16 at 17:00 Triglycerides (Mct Oil (Ped)) 10 ml Q6 PO Last administered on 08/20/16 05:14 ; Admin Dose 10 ML; Start 08/14/16 at 12:30 Levofloxacin (Levaquin) 750 mg TuThSa PO Last administered on 08/19/16 21:48; Admin Dose 750 MG; Start 08/14/16 at 20:00 Calcium Carbonate (Tums) 500 mg TID PO Last administered on 08/20/16 13:02; Admin Dose 500 MG; Start 08/15/16 at 09:00 Midodrine 5 mg 5 mg BID@ PO Last administered on 08/20/16 08:12; Admin Dose 5 MG; Start 08/15/16 at 17:00 Vasopressin 60 unit/Dextrose 60 ml @ 1.2 mls/hr Q12H IV Last administered on 05:39; Admin Dose 2.4 MLS/HR; Start 08/16/16 at 09:30 Norepinephrine 32 mg/Dextrose 250 ml @ 0.46 mls/hr TITRATE IV Last administered on 08/19/16 12:50; Admin Dose 0.93 MLS/HR; Start 08/16/16 at 13:30 Epinephrine 4 mg/ Sodium Chloride 250 ml @ 3.75 mls/hr TITRATE IV ; Start 08/16 at 14:00 Vancomycin HCl (Vancocin) 250 ml @ 125 mls/hr Q96H IVPB Last administered on 18:14; Admin Dose 125 MLS/HR; Start 08/18/16 at 16:00 Pantoprazole (Protonix Iv) 40 mg DAILY@06 IV Last administered on 08/20/16 05: 14; Admin Dose 40 MG; Start 08/18/16 at 06:00 Insulin Glargine (Lantus) 15 unit 08 SC Last administered on 08/19/16 08:36; Admin Dose 15 UNIT; Start 08/18/16 at 08:00 Insulin Aspart NOVOLOG *MILD* ALGORI... Q4 SC Last administered on 08/20/16 09 :12; Admin Dose 3 UNIT; Start 08/18/16 at 08:00 Caspofungin 35 mg/ Sodium Chloride 250 ml @ 250 mls/hr Q24H IV Last administered on 08/19/16 16:46; Admin Dose 250 MLS/HR; Start 08/18/16 at 17:00 Calcium Gluconate 1 gm/Sodium Chloride 110 ml @ 110 mls/hr BID IVPB Last administered on 08/20/16 09:14; Admin Dose 110 MLS/HR; Start 08/20/16 at 09:00 ; Stop 08/20/16 at 21:30 Dextrose/Sodium Chloride 1,000 ml @ 120 mls/hr Q8H20M IV Last administered on 08/20/16 07:15; Admin Dose 120 MLS/HR; Start 08/20/16 at 06:30 Total Parenteral Nutrition 1,000 ml @ 80 mls/hr [id number] IV ; Start 08/20/16 at 14:00 Fat Emulsion Intravenous (Liposyn Ii 20%) 250 ml @ 13.889 mls/ hr [id number]@14 IV ; Start 08/20/16 at 14:00 SHERITA SCOTT Aug 20, 2016 13:46
[2016-08-20] MEDS ORDERED: TPN 1,000 ML IV SCH (14:00)
[2016-08-20] MEDS ORDERED: FAT EMULSION 20% 250 ML IV SCH (14:00)
[2016-08-20] MEDS: CASPOFUNGIN 35 MG in SOD CHLORIDE 0.9% 250 ML IV SCH (16:23)
--- NOTE | 2016-08-20 17:09 | PN ---
Date/Time of Note Date/Time of Note DATE: 08/20/16 TIME: 17:06 Assessment/Plan VTE Prophylaxis VTE Prophylaxis Intervention: SCD's Lines/Catheters IV Catheter Type (from [facility]): TRIALYSIS Urinary Cath still in place: No Assessment/Plan Chief Complaint/Hosp Course Assessment and plan: - Recurrent right pleural effusion consistent with empyema, cavitary lesions, status post right thoracotomy and pulmonary decortication on 08/04. Chylothorax, would need embolization of the thoracic duct, pending transfer to [facility]. - S/ P PEA arrest on 08/16. Dr. De Santiago is following and cardiology consultation. - Hypovolemia vs cardiogenic shock, continue IV fluids, pressors, ICU care. - Anemia of acute blood loss, transfuse blood, continue to monitor hemoglobin and hematocrit. Dr. Martinez is following in hematology consultation. -Thrombocytopenia most likely due to DIC, s/p platelets transfusion. - GI bleed, Dr Borjas is following in GI consult. -Hemoptysis, resolved. Dr. Dale is following in pulmonology consultation. Dr. Caitlin balderas is following an infection disease consultation. -Right former chest tube site bleeding, resolved. Dr. Martinez is following in thoracic surgery consultation. 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 - End-stage renal disease, continue hemodialysis. Dr. Saunders is following in nephrology consultation. - Diabetes mellitus type 2, continue NovoLog per mild algorithm sliding scale. - Hypertension. Continue benazepril metoprolol hydralazine Procardia - Coronary artery disease, status post coronary artery bypass graft, s/p percutaneous transluminal coronary angioplasty and stent placement to left main and left anterior descending in 2014. - Permanent pacemaker. No acute issues. - Dyslipidemia. Further recommendations based on clinical course. Plan of care discussed with Dr. Price. Problems: Subjective 24 Hr Interval Summary Free Text/Dictation Patient was episode of SVT yesterday, currently in sinus rhythm, continued on Levophed and Angelito-Synephrine for blood pressure control, continued on ventilatory support. Exam/Review of Systems Vital Signs Vitals Vital Signs Date Time Temp Pulse Resp B/P Pulse Ox O2 Delivery O2 Flow Rate FiO2 08/20/16 16:00 77 08/20/16 15:00 20 117/63 100 Mechanical Ventilator 08/20/16 12:00 98.0 08/20/16 11:10 40 08/16/16 11:00 2.0 Intake and Output 08/19/16 08/19/16 08/20/16 14:59 22:59 06:59 Intake Total 907.45 ml 1235.19 ml 1093.54 ml Output Total 0 ml 850 ml 600 ml Balance 907.45 ml 385.19 ml 493.54 ml Exam Constitutional: orally intubated Psych: no complaints Head: atraumatic, normocephalic ENMT: nl external ears & nose Neck: non-tender, supple Respiratory: clear to auscultation, normal air movement Cardiovascular: other (Left chest permanent pacemaker), regular rate and rhythm Gastrointestinal: bowel sounds, soft Extremities: normal pulses Neurological: [employer]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 II-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 intact R CT Results Result Diagram: 08/20/16 0355 08/20/16 0355 Results 24 hrs Laboratory Tests Test 08/19/16 17:30 08/19/16 18:34 08/19/16 19:05 08/19/16 19:47 Bedside Glucose 112 96 86 Platelet Count 125 #L Prothrombin Time 14.2 Prothrombin Time Ratio 1.1 INR International Normalized Ratio 1.10 Activated Partial Thromboplast Time 32.2 Thrombin Time 16.3 Fibrinogen 252.0 # Plasma Fibrin Degradation Products <10 D-Dimer 9023.77 #H D-Dimer Comment Test 08/19/16 20:49 08/20/16 00:40 08/20/16 01:01 08/20/16 01:18 Bedside Glucose 97 51 L 99 90 Test 08/20/16 02:45 08/20/16 03:55 08/20/16 04:26 08/20/16 09:07 Bedside Glucose 158 188 229 H White Blood Count 11.9 H Red Blood Count 3.06 L Hemoglobin 9.4 #L Hematocrit 25.9 #L Mean Corpuscular Volume 84.6 Mean Corpuscular Hemoglobin 30.7 Mean Corpuscular Hemoglobin Concent 36.3 Red Cell Distribution Width 16.9 H Platelet Count 68 #L Mean Platelet Volume 11.5 H Neutrophils % 90.0 H Lymphocytes % 2.4 L Monocytes % 6.1 Eosinophils % 0.3 Basophils % 0.2 Nucleated Red Blood Cells % 0.0 Neutrophils # 10.7 H Lymphocytes # 0.3 L Monocytes # 0.7 Eosinophils # 0.0 Basophils # 0.0 Nucleated Red Blood Cells # 0.0 Sodium Level 125 L Potassium Level 3.1 L Chloride Level 90 L Carbon Dioxide Level 25 Anion Gap 13 Blood Urea Nitrogen 40 H Creatinine 4.32 H Glucose Level 172 Calcium Level 5.5 *L Total Bilirubin 6.1 H Direct Bilirubin 4.00 H Indirect Bilirubin 2.1 H Aspartate Amino Transf (AST/SGOT) 71 H Alanine Aminotransferase (ALT/SGPT) 33 Alkaline Phosphatase 165 H Total Protein 3.6 L Albumin 1.8 L Globulin 1.80 Albumin/Globulin Ratio 1.00 Test 08/20/16 13:03 08/20/16 16:23 Bedside Glucose 116 184 Medications Medications Current Medications Aspirin (Halfprin) 81 mg DAILY PO Last administered on 08/16/16 08:21; Admin Dose 81 MG; Start 07/25/16 at 09:00; Status Future Hold Atorvastatin Calcium (Lipitor) 10 mg QHS PO Last administered on 08/15/16 21: 40; Admin Dose 10 MG; Start 07/24/16 at 21:00; Status Future Hold Cholecalciferol (Vitamin D) 400 units DAILY PO Last administered on 08/20/16 08:13; Admin Dose 400 UNITS; Start 07/25/16 at 09:00 Famotidine (Pepcid) 20 mg DAILY PO Last administered on 08/20/16 08:13; Admin Dose 20 MG; Start 07/25/16 at 09:00 Ferrous Sulfate (Ferrous Sulfate (Ec)) 325 mg BID PO Last administered on 08:13; Admin Dose 325 MG; Start 07/24/16 at 21:00 Acetaminophen/ Hydrocodone Bitart ([place] (5/325)) 1 tab Q4H PRN PO PAIN Last administered on 08/19/16 22:01; Admin Dose 1 TAB; Start 07/24/16 at 17:00 Isoniazid (Isoniazid) 300 mg DAILY PO Last administered on 08/20/16 08:13; Admin Dose 300 MG; Start 07/24/16 at 15:30 Pyridoxine HCl (Vitamin B6) 50 mg DAILY PO Last administered on 08/20/16 08:13 ; Admin Dose 50 MG; Start 07/25/16 at 09:00 Miscellaneous Information 1 ea NOTE XX ; Start 07/24/16 at 16:00 Glucose (Glutose) 15 gm Q15M PRN PO DECREASED GLUCOSE; Start 07/24/16 at 16:00 Glucose (Glutose) 22.5 gm Q15M PRN PO DECREASED GLUCOSE; Start 07/24/16 at 16: 00 Dextrose (D50w Syringe) 25 ml Q15M PRN IV DECREASED GLUCOSE Last administered on 08/20/16 00:42; Admin Dose 25 ML; Start 07/24/16 at 16:00 Dextrose (D50w Syringe) 50 ml Q15M PRN IV DECREASED GLUCOSE Last administered on 08/17/16 21:38; Admin Dose 50 ML; Start 07/24/16 at 16:00 Glucagon (Glucagen) 1 mg Q15M PRN IM DECREASED GLUCOSE; Start 07/24/16 at 16:00 Glucose (Glutose) 15 gm Q15M PRN BUCCAL DECREASED GLUCOSE; Start 07/24/16 at 16 :00 Ondansetron HCl (Zofran Inj) 4 mg Q4 PRN IV nausea Last administered on 21:40; Admin Dose 4 MG; Start 07/24/16 at 17:00 Metoclopramide HCl (Reglan) 5 mg Q4H PRN IV NAUSEA Last administered on 16:40; Admin Dose 5 MG; Start 07/24/16 at 22:30 Hydralazine HCl (Apresoline) 20 mg Q4 PRN IV ELEVATED BLOOD PRESSURE Last administered on 08/04/16 16:35; Admin Dose 20 MG; Start 07/28/16 at 02:00 Polyethylene Glycol (Miralax) 17 gm DAILY PRN GTB CONSTIPATION Last administered on 07/28/16 20:22; Admin Dose 17 GM; Start 07/28/16 at 19:30 Lorazepam (Ativan) 1 mg Q4H PRN IV anxiety Last administered on 08/19/16 07:52 ; Admin Dose 1 MG; Start 07/29/16 at 06:30 Ethambutol HCl (Myambutol) 900 mg TuThSa@20 PO Last administered on 08/19/16 21:48; Admin Dose 900 MG; Start 07/31/16 at 20:00 Pyrazinamide (Pyrazinamide) 1,250 mg TuThSa@20 PO Last administered on 21:49; Admin Dose 1,250 MG; Start 07/31/16 at 20:00 Hydromorphone HCl (Dilaudid) 1 mg Q2H PRN IV pain Last administered on 11:23; Admin Dose 1 MG; Start 08/02/16 at 19:00 Zolpidem Tartrate (Ambien) 5 mg HS PRN PO INSOMNIA Last administered on 22:40; Admin Dose 5 MG; Start 08/08/16 at 21:00 Benazepril HCl (Lotensin) 10 mg BID PO ; Start 08/09/16 at 09:00; Status Future Hold Metoprolol Tartrate 25 mg 25 mg BID GTB Last administered on 08/14/16 20:42; Admin Dose 25 MG; Start 08/09/16 at 21:00 Sodium Chloride 1,000 ml @ 50 mls/hr Q20H IV Last administered on 08/14/16 17 :48; Admin Dose 50 MLS/HR; Start 08/09/16 at 17:30; Status Future Hold Dopamine HCl/ Dextrose (D5W) 250 ml @ 1.71 mls/hr TITRATE IV Last administered on 08/11/16 15:07; Admin Dose 11.43 MLS/HR; Start 08/10/16 at 15:30 Acetaminophen (Tylenol Tab) 650 mg Q6H PRN PO PAIN AND OR ELEVATED TEMP Last administered on 08/12/16 00:54; Admin Dose 650 MG; Start 08/10/16 at 16:30 Clopidogrel Bisulfate 75 mg 75 mg DAILY PO Last administered on 08/16/16 08:21 ; Admin Dose 75 MG; Start 08/11/16 at 12:00; Status Future Hold Phenylephrine HCl 160 mg/Dextrose 500 ml @ 18.75 mls/ hr TITRATE IV Last administered on 08/19/16 16:46; Admin Dose 18.75 MLS/HR; Start 08/12/16 at 06: 00 Meropenem (Merrem 500 Mg/ 100 ml (Pmx)) 100 ml @ 200 mls/hr Q24H IVPB Last administered on 08/20/16 08:13; Admin Dose 200 MLS/HR; Start 08/13/16 at 09:00 Epoetin Tutu (Epogen (Esrd)) 3,000 units TuThSa@17 SC Last administered on 08/19 16:47; Admin Dose 3,000 UNITS; Start 08/14/16 at 17:00 Epoetin Tutu (Epogen (Esrd)) 2,000 units TuThSa@17 SC Last administered on 08/19 16:51; Admin Dose 2,000 UNITS; Start 08/14/16 at 17:00 Triglycerides (Mct Oil (Ped)) 10 ml Q6 PO Last administered on 08/20/16 05:14 ; Admin Dose 10 ML; Start 08/14/16 at 12:30 Levofloxacin (Levaquin) 750 mg TuThSa PO Last administered on 08/19/16 21:48; Admin Dose 750 MG; Start 08/14/16 at 20:00 Calcium Carbonate (Tums) 500 mg TID PO Last administered on 08/20/16 13:02; Admin Dose 500 MG; Start 08/15/16 at 09:00 Midodrine 5 mg 5 mg BID@,17 PO Last administered on 08/20/16 16:27; Admin Dose 5 MG; Start 08/15/16 at 17:00 Vasopressin 60 unit/Dextrose 60 ml @ 1.2 mls/hr Q12H IV Last administered on 05:39; Admin Dose 2.4 MLS/HR; Start 08/16/16 at 09:30 Norepinephrine 32 mg/Dextrose 250 ml @ 0.46 mls/hr TITRATE IV Last administered on 08/19/16 12:50; Admin Dose 0.93 MLS/HR; Start 08/16/16 at 13:30 Epinephrine 4 mg/ Sodium Chloride 250 ml @ 3.75 mls/hr TITRATE IV ; Start 08/16 at 14:00 Vancomycin HCl (Vancocin) 250 ml @ 125 mls/hr Q96H IVPB Last administered on 18:14; Admin Dose 125 MLS/HR; Start 08/18/16 at 16:00 Pantoprazole (Protonix Iv) 40 mg DAILY@06 IV Last administered on 08/20/16 05: 14; Admin Dose 40 MG; Start 08/18/16 at 06:00 Insulin Glargine (Lantus) 15 unit 08 SC Last administered on 08/19/16 08:36; Admin Dose 15 UNIT; Start 08/18/16 at 08:00 Insulin Aspart NOVOLOG *MILD* ALGORI... Q4 SC Last administered on 08/20/16 16 :25; Admin Dose 2 UNIT; Start 08/18/16 at 08:00 Caspofungin 35 mg/ Sodium Chloride 250 ml @ 250 mls/hr Q24H IV Last administered on 08/20/16 16:23; Admin Dose 250 MLS/HR; Start 08/18/16 at 17:00 Calcium Gluconate 1 gm/Sodium Chloride 110 ml @ 110 mls/hr BID IVPB Last administered on 08/20/16 09:14; Admin Dose 110 MLS/HR; Start 08/20/16 at 09:00 ; Stop 08/20/16 at 21:30 Dextrose/Sodium Chloride 1,000 ml @ 120 mls/hr Q8H20M IV Last administered on 08/20/16 07:15; Admin Dose 120 MLS/HR; Start 08/20/16 at 06:30 Total Parenteral Nutrition 1,000 ml @ 80 mls/hr [id number] IV ; Start 08/20/16 at 14:00 Fat Emulsion Intravenous (Liposyn Ii 20%) 250 ml @ 13.889 mls/ hr MoWeFr@14 IV ; Start 08/20/16 at 14:00 CECILIA DAMICO Aug 20, 2016 17:09
--- NOTE | 2016-08-20 18:15 | PN ---
DATE: The patient is in the intensive care unit now. He is still intubated. Blood pressure is around 70 to 80 systolic. He is on 2 pressors to maintain the blood pressure. He is lethargic. Pulse is 110 per minute. No active GI bleeding at this time. PHYSICAL EXAMINATION: CARDIOVASCULAR: Heart sounds well heard. RESPIRATORY: Normal breath sounds. ABDOMEN: Soft abdomen. LABORATORY WORKUP: Hemoglobin today is 9.4; yesterday it was 12.0. WBC count 11,900. Sodium 125, potassium 3.1, calcium 5.5, BUN 40, creatinine 4.32. Bilirubin 6.1. CLINICAL IMPRESSION: 1. Gastrointestinal bleeding, stable. 2. High bilirubin, probably due to shock liver. Certainly coagulopathy itself can give rise to ind irect hyperbilirubinemia, but he has got predominantly direct bilirubinemia. Albumin 1.0. PLAN: At this time, the patient is being transferred to the [facility] ____ rupture repair. Dictated By: CLAUDIO HOWELL/MANJIT Conf#: [id number] DID#: [id number]
--- NOTE | 2016-08-20 18:32 | PN ---
Date/Time of Note Date/Time of Note DATE: 08/20/16 TIME: 18:31 Assessment/Plan Lines/Catheters IV Catheter Type (from Nrs): TRIALYSIS Jonas in Place (from Nrs): No Assessment/Plan Chief Complaint/Hosp Course IMPRESSION: Right chest tube site bleeding, which has now subsided completely. pt coded yesterday more stable today SP VATS Decortication Chylothorax will continue CT sxn may need pleurex cath would need embolization of the thoracic duct done at [facility] continue fluid replacement discussed with Dr Saunders and [employer] Problems: Exam/Review of Systems Vital Signs Vitals Vital Signs Date Time Temp Pulse Resp B/P Pulse Ox O2 Delivery O2 Flow Rate FiO2 08/20/16 18:00 75 20 106/63 100 Mechanical Ventilator 08/20/16 17:10 40 08/20/16 16:00 97.9 08/16/16 11:00 2.0 Intake and Output 08/19/16 08/19/16 08/20/16 15:00 23:00 07:00 Intake Total 1038.55 ml 1240.09 ml 960.94 ml Output Total 0 ml 850 ml 600 ml Balance 1038.55 ml 390.09 ml 360.94 ml Exam Respiratory: clear to auscultation, normal air movement Cardiovascular: nl pulses, regular rate and rhythm Gastrointestinal: nl liver, spleen, non-tender, soft Results Result Diagram: 08/20/16 0355 08/20/16 0355 LILIA FELIZ MD Aug 20, 2016 18:32
[2016-08-21 16:26] LABS: HEPARIN INDUCED PLATELET AB NEGATIVE (NEGATIVE)
== END 2016-08-20 20:00 | disposition short-term general hospital (02) | DRG 163 ==
LOC: E/R 03:53 → ICU 12:53 → PP2 07-26 15:02 → MS4 07-26 21:47 → ICU 08-05 10:17 → TEL 08-05 18:04 → ICU 08-09 12:04
PROVIDERS: ADMIT Internal Medicine; ATTEND Internal Medicine
PROC: 30233N1 Transfusion of Nonautologous Red Blood Cells into Peripheral Vein, Percutaneous Approach (ICD-10-PCS; 2016-07-24)
PROC: 5A1D60Z (ICD-10-PCS; 2016-07-25)
PROC: 0BJQ4ZZ Inspection of Pleura, Percutaneous Endoscopic Approach (ICD-10-PCS; 2016-08-04)
PROC: 0BJ08ZZ Inspection of Tracheobronchial Tree, Via Natural or Artificial Opening Endoscopic (ICD-10-PCS; 2016-08-04)
PROC: 0BDN0ZZ Extraction of Right Pleura, Open Approach (ICD-10-PCS; principal; 2016-08-04 19:30)
PROC: 30233R1 Transfusion of Nonautologous Platelets into Peripheral Vein, Percutaneous Approach (ICD-10-PCS; 2016-08-05)
PROC: 06HN33Z Insertion of Infusion Device into Left Femoral Vein, Percutaneous Approach (ICD-10-PCS; 2016-08-10)
PROC: 06HM33Z Insertion of Infusion Device into Right Femoral Vein, Percutaneous Approach (ICD-10-PCS; 2016-08-11)
PROC: 06HM33Z Insertion of Infusion Device into Right Femoral Vein, Percutaneous Approach (ICD-10-PCS; 2016-08-15)
PROC: 0BH17EZ Insertion of Endotracheal Airway into Trachea, Via Natural or Artificial Opening (ICD-10-PCS; 2016-08-16)
PROC: 5A1955Z Respiratory Ventilation, Greater than 96 Consecutive Hours (ICD-10-PCS; 2016-08-16)
PROC: 30233K1 Transfusion of Nonautologous Frozen Plasma into Peripheral Vein, Percutaneous Approach (ICD-10-PCS; 2016-08-17)
DX: A15.6 Tuberculous pleurisy (principal); N18.6 End stage renal disease; J96.00 Acute respiratory failure, unspecified whether with hypoxia or hypercapnia; R65.21 Severe sepsis with septic shock; E43 Unspecified severe protein-calorie malnutrition; A41.9 Sepsis, unspecified organism; D62 Acute posthemorrhagic anemia; I46.9 Cardiac arrest, cause unspecified; I12.0 Hypertensive chronic kidney disease with stage 5 chronic kidney disease or end stage renal disease; E87.1 Hypo-osmolality and hyponatremia; R04.2 Hemoptysis; K62.5 Hemorrhage of anus and rectum; J90 Pleural effusion, not elsewhere classified; J69.0 Pneumonitis due to inhalation of food and vomit; I95.9 Hypotension, unspecified; I25.10 Atherosclerotic heart disease of native coronary artery without angina pectoris; Z53.32 Thoracoscopic surgical procedure converted to open procedure; D64.9 Anemia, unspecified; Z95.1 Presence of aortocoronary bypass graft; Z95.5 Presence of coronary angioplasty implant and graft; Z95.0 Presence of cardiac pacemaker; R11.2 Nausea with vomiting, unspecified; E11.9 Type 2 diabetes mellitus without complications; Z68.20 Body mass index [BMI] 20.0-20.9, adult; I89.8 Other specified noninfective disorders of lymphatic vessels and lymph nodes
CPT/HCPCS: 31500; 36415; 36430; 36600; 71010; 71020; 71250; 72170; 74176; 76604; 76937; 80048; 80053; 80061; 80076; 80202; 82150; 82270; 82310; 82330; 82550; 82553; 82607; 82668; 82728; 82746; 82803; 82962; 83540; 83605; 83615; 83690; 83735; 83986; 84100; 84145; 84155; 84484; 85014; 85018; 85025; 85045; 85049; 85362; 85378; 85384; 85610; 85670; 85730; 86022; 86635; 86641; 86644; 86850; 86900; 86901; 86920; 87040; 87070; 87075; 87081; 87102; 87116; 88104; 88305; 90935; 92950; 93005; 93306; 94002; 94003; 94640; 94664; 94770; 96374; 96375; 96376; C1752; C9113; J0171; J0282; J0360; J0610; J0886; J1170; J1265; J1644; J1720; J1815; J1956; J2060; J2185; J2250; J2370; J2405; J2765; J2916; J2997; J3010; J3370; J3475; J3480; J7030; J7040; J7042; J7050; J7060; J7070; P9016; P9035; P9045; P9047; P9059